=== PATIENT | male | born 1955 | race Caucasian/White ===

== ENCOUNTER 2017-03-02 13:09 | Inpatient (IN) | payer MEDICAID ==
[~2017-03-02] VITALS: Ht 175.3 cm; Wt 80.4 kg
[2017-03-02] VITALS (14 sets, daily range): BP systolic 79–107; BP diastolic 53–74; PULSE 77–93; RESP 16–26; TEMP 97.3–99.4; O2SAT 20–100
[~2017-03-02 13:09] MED LIST: LACT20SO4 PO; NORV5TAB PO; SODI1 PO; THIA100T PO
[2017-03-02] MEDS ORDERED: SODIUM CHLOR 0.9% 1000 ML INJ 1,000 ML IV SCH ×2 (13:42→18:00)
[2017-03-02] MEDS ORDERED: SODIUM CHLORIDE 0.9% FLUSH 10 ML FLUSH IVF PRN (13:45)
--- NOTE | 2017-03-02 13:59 | PD ---
HPI Chief Complaint: Fall Time Seen by Provider: 13:47 Travel History International Travel<30 days: No Contact w/Intl Traveler<30days: No Traveled to known affect area: No History of Present Illness HPI 61-year-old male brought in by his neighbor via POV from his apartment abdomen found laying face down in his apartment for unknown duration. Patient is urine incontinent, but does respond to verbal stimuli and direction. Patient appears intoxicated. Patient has swelling to the left side of his face, forehead, cheek, upper lip, and nose with superficial abrasion noted. Patient has minor abrasion to the left posterior elbow, and abrasions to the anterior chest with complaints of pain with palpation in this area. Patient does not recall how long he has been passed out. He states he's had one beer today. Patient is able to stand and transfer to the bed from wheelchair with nursing help. Further history is limited. Patient is allergic to peanuts. PFSH Past Medical History Medical History: Unable to Obtain Diminished Hearing: No ?: Not Social History Alcohol Use: Yes (20 beer day) Tobacco Use: No Substance Use: No Allergies-Medications (Allergen,Severity, Reaction): Coded Allergies: PEANUTS (Unverified Allergy, Severe, 03/02/17) Reported Meds & Prescriptions Reported Meds & Active Scripts Active Reported Xanax (Alprazolam) 2 Mg Tab 2 Mg PO DAILY PRN Omeprazole 20 Mg Tab 20 Mg PO DAILY IN THE PM Review of Systems ROS Limitations: Intoxication, Poor Historian Except as stated in HPI: all other systems reviewed are Neg General / Constitutional: No: Fever Eyes: No: Visual changes HENT: No: Headaches Cardiovascular: No: Chest Pain or Discomfort Respiratory: No: Shortness of Breath Gastrointestinal: No: Abdominal Pain Genitourinary: No: Dysuria Musculoskeletal: No: Pain Skin: No Rash Neurologic: No: Weakness Psychiatric: No: Depression Endocrine: No: Polydipsia Hematologic/Lymphatic: No: Easy Bruising Physical Exam Narrative GENERAL: Patient appears in moderate distress. SKIN: Warm and dry. Patient appears icteric, and has large superficial abrasion to the left side of his face, with swelling of the left upper and lower eyelid left upper lip, and left lateral nasal region. No lacerations noted. Patient is noted to have ecchymosis to both anterior shoulders, with small abrasion with ecchymosis to the left posterior elbow. Patient also has ecchymotic region across the left anterior lower thoracic region. HEAD: See skin. EYES: Pupils equal and round. No scleral icterus. No injection or drainage. ENT: No nasal bleeding or discharge. Mucous membranes pink and dry. Patient has false upper teeth, no obvious acute dental injury to the lower teeth. Airway is patent. Pharynx appears unremarkable. NECK: Trachea midline. No bony tenderness or step-off. CARDIOVASCULAR: Regular rate and rhythm. No murmurs gallops or rubs. RESPIRATORY: No accessory muscle use. Clear to auscultation. Breath sounds equal bilaterally. GASTROINTESTINAL: Abdomen soft, non-tender, nondistended. Hepatic and splenic margins not palpable. MUSCULOSKELETAL: Extremities without clubbing, cyanosis, or edema. No obvious deformities. Patient complains of left shoulder pain, without obvious signs of fracture or dislocation. Bruising is noted. Patient complains of bilateral elbow discomfort but this appears to be due to abrasion, without signs of fracture or dislocation. Patient generally has spasticity in all extremities. Patient is tender over the left anterior lateral thorax, without subcutaneous emphysema noted, or crepitus along the ribs. NEUROLOGICAL: Awake and alert. No obvious cranial nerve deficits. Motor grossly within normal limits. Five out of 5 muscle strength in the arms and legs. Normal speech. PSYCHIATRIC: Appropriate mood and affect; insight and judgment normal. Data Data Last Documented VS Vital Signs Date Time Temp Pulse Resp B/P Pulse Ox O2 Delivery O2 Flow Rate FiO2 03/02/17 15:40 86 20 107/73 97 Room Air 03/02/17 13:29 97.3 Orders Electrocardiogram (03/02/17 13:42) Ammonia (03/02/17 13:42) Complete Blood Count With Diff (03/02/17 13:42) Comprehensive Metabolic Panel (03/02/17 13:42) Creatine Kinase (Cpk) (03/02/17 13:42) Prothrombin Time / Inr (Pt) (03/02/17 13:42) Act Partial Throm Time (Ptt) (03/02/17 13:42) Troponin I (03/02/17 13:42) Lactic Acid Sepsis Protocol (03/02/17 13:42) Urinalysis - C+S If Indicated (03/02/17 13:42) Blood Culture (03/02/17 13:42) Blood Glucose (03/02/17 13:42) Ecg Monitoring (03/02/17 13:42) Iv Access Insert/Monitor (03/02/17 13:42) Cath For Specimen (03/02/17 13:42) Oximetry (03/02/17 13:42) Sodium Chloride 0.9% Flush (Ns Flush) (03/02/17 13:45) Sodium Chlor 0.9% 1000 Ml Inj (Ns 1000 M (03/02/17 13:42) Drug Screen, Random Urine (03/02/17 13:42) Alcohol (Ethanol) (03/02/17 13:42) Lipase (03/02/17 13:42) Ct Brain W/O Iv Contrast(Rout) (03/02/17 13:42) Ct Thorax/ Chest Wo Iv Contras (03/02/17 13:42) Ct Abd/Pel W/O Iv Contrast (03/02/17 13:42) Ct Cerv Spine W/O Contrast (03/02/17 13:42) Ct Facial Bones W/O Iv Cont (03/02/17 13:42) [id number]-[id number] (Booster) Inj (Boostrix (03/02/17 14:00) Sodium Chlor 0.9% 1000 Ml Inj (Ns 1000 M (03/02/17 14:00) Shoulder, Complete (>2vws) (03/02/17 14:04) CKMB (03/02/17 14:15) CKMB% (03/02/17 14:15) Admit Order (Ed Use Only) (03/02/17 16:17) Labs Laboratory Tests Test 03/02/17 03/02/17 03/02/17 14:15 14:30 16:10 White Blood Count 12.5 TH/MM3 Red Blood Count 4.28 MIL/MM3 Hemoglobin 14.5 GM/DL Hematocrit 40.6 % Mean Corpuscular Volume 94.7 FL Mean Corpuscular Hemoglobin 33.8 PG Mean Corpuscular Hemoglobin 35.7 % Concent Red Cell Distribution Width 13.1 % Platelet Count 112 TH/MM3 Mean Platelet Volume 7.7 FL Neutrophils (%) (Auto) 83.1 % Lymphocytes (%) (Auto) 11.2 % Monocytes (%) (Auto) 5.2 % Eosinophils (%) (Auto) 0.2 % Basophils (%) (Auto) 0.3 % Neutrophils # (Auto) 10.4 TH/MM3 Lymphocytes # (Auto) 1.4 TH/MM3 Monocytes # (Auto) 0.6 TH/MM3 Eosinophils # (Auto) 0.0 TH/MM3 Basophils # (Auto) 0.0 TH/MM3 CBC Comment DIFF FINAL Differential Comment Prothrombin Time 21.4 SEC Prothromb Time International 1.9 RATIO Ratio Activated Partial 37.5 SEC Thromboplast Time Sodium Level MEQ/L Potassium Level 3.8 MEQ/L Chloride Level 59 MEQ/L Carbon Dioxide Level 13.9 MEQ/L Anion Gap 26 MEQ/L Blood Urea Nitrogen 19 MG/DL Creatinine 1.54 MG/DL Estimat Glomerular Filtration 46 ML/MIN Rate Random Glucose 120 MG/DL Serum Osmolality 220 MOSM/KG Lactic Acid Level 9.8 mmol/L 4.6 mmol/L Calcium Level 8.1 MG/DL Total Bilirubin 8.9 MG/DL Aspartate Amino Transf 494 U/L (AST/SGOT) Alanine Aminotransferase 146 U/L (ALT/SGPT) Alkaline Phosphatase 144 U/L Ammonia 60 MCMOL/L Total Creatine Kinase 7117 U/L Creatine Kinase MB 52.2 NG/ML Creatine Kinase MB % 0.7 % Troponin I 4.92 NG/ML Total Protein 7.4 GM/DL Albumin 2.8 GM/DL Lipase 277 U/L Ethyl Alcohol Level LESS THAN 3 MG/DL Urine Color DARK-BROWN Urine Turbidity HAZY Urine pH 6.0 Urine Specific [place] 1.018 Urine Protein 30 mg/dL Urine Glucose (UA) 150 mg/dL Urine Ketones TRACE mg/dL Urine Occult Blood MOD Urine Nitrite NEG Urine Bilirubin MOD Urine Urobilinogen 2.0 MG/DL Urine Leukocyte Esterase NEG Urine RBC 1 /hpf Urine WBC 5 /hpf Urine Squamous Epithelial 1 /hpf Cells Urine Hyaline Casts 7 /lpf Urine Granular Casts 2 /lpf Urine Mucus FEW /lpf Microscopic Urinalysis Comment CATH-CULT NOT IND MDM Medical Decision Making Medical Screen Exam Complete: Yes Emergency Medical Condition: Yes Differential Diagnosis Altered mental status. Fall with facial contusion. Possible facial fracture. Possible intracranial bleed. Electrolyte abnormality. Dehydration. Renal failure. Cirrhosis. Dehydration. Sepsis. Narrative Course Patient is guardedly medically stable at time of exam. CT of the head, neck, thorax, and abdomen is ordered after discussion with Dr. Carrion. EKG shows sinus rhythm with question QT elongation. Labs ordered including CBC, CMP, lactic acid, ammonia, PT PTT and INR, troponin , blood cultures 2, serum alcohol level, urine drug screen and urinalysis. IV access is obtained. Patient is ordered 2 normal saline IV boluses. X-ray of the left shoulder is ordered as well. CBC shows mild leukocytosis of 12.3. 1500 hrs. sodium is reported to be 99, and a lactic acid is 9.8. Patient discussed with Dr. Carrion who called the marketing financial analyst. Dr. Carrion assumes care of the patient. Condition: Stable Reji Herrera Mar 02, 2017 13:59
[2017-03-02] MEDS ORDERED: SODIUM CHLOR 0.9% 1000 ML INJ 1,000 ML IV ONE ×4 (14:00→21:00)
[2017-03-02] MEDS ORDERED: DIPHTH/TETANUS/ACEL PERTUSSIS (BOOSTER) 0.5 ML VIAL/PFS IM ONE (14:00)
[2017-03-02 14:36] LABS: AUTOMATED NEUTROPHIL # 10.4 TH/MM3 (1.8-7.7); BASOPHIL % 0.3 % (0.0-2.0); EOSINOPHIL % 0.2 % (0.0-4.0); HEMATOCRIT 40.6 % (39.0-51.0); HEMO FLAGS DIFF FINAL; LYMPH % 11.2 % (9.0-44.0); LYMPHOCYTE # 1.4 TH/MM3 (1.0-4.8); MEAN CELL VOLUME 94.7 FL (80.0-100.0); MEAN CORPUSCULAR HEMOGLOBIN 33.8 PG (27.0-34.0); MEAN CORPUSCULAR HGB CONC 35.7 % (32.0-36.0); MONO % 5.2 % (0.0-8.0); NEUT % 83.1 % (16.0-70.0); PLATELET COUNT 112 TH/MM3 (150-450); RED BLOOD COUNT 4.28 MIL/MM3 (4.50-5.90); RED CELL DISTRIBUTION WIDTH 13.1 % (11.6-17.2); WHITE BLOOD COUNT 12.5 TH/MM3 (4.0-11.0)
[2017-03-02 14:45] LABS: INTERNATIONAL NORMALIZED RATIO 1.9 RATIO; PROTHROMBIN TIME - PATIENT 21.4 SEC (9.8-11.6)
[2017-03-02] MEDS ORDERED: XANA2TAB2 PO (14:47)
[2017-03-02] MEDS ORDERED: OMEP20TA PO (14:47)
[2017-03-02 14:58] LABS: APTT (PATIENT) 37.5 SEC (24.3-30.1)
[2017-03-02 14:59] LABS: BLOOD, URINE MOD (NEG); GLUCOSE,URINE 150 mg/dL (NEG); GRANULAR CAST, URINE 2 /lpf; HYALINE CAST, URINE 7 /lpf (RARE); KETONE, URINE TRACE mg/dL (NEG); MUCUS URINE FEW /lpf (OCC); NITRITE,URINE NEG (NEG); SQUAMOUS EPITHELIAL CELL URINE 1 /hpf (0-5)
[2017-03-02 15:00] LABS: URINE COLOR DARK-BROWN (YELLW/STRAW)
[2017-03-02 15:01] LABS: ALT (GPT) 146 U/L (12-78); AST (GOT) 494 U/L (15-37); BICARBONATE 13.9 MEQ/L (21.0-32.0); BLOOD UREA NITROGEN 19 MG/DL (7-18); CHLORIDE 59 MEQ/L (98-107); GLOMERULAR FILTRATION RATE 46 ML/MIN (>89)
[2017-03-02 15:02] LABS: COMMENT (UR) CATH-CULT NOT IND; CULTURE IF INDICATED CATH CULTURE NOT IND
[2017-03-02 15:05] LABS: POTASSIUM 3.8 MEQ/L (3.5-5.1)
[2017-03-02 15:26] LABS: ALKALINE PHOSPHATASE 144 U/L (45-117); CREATINE KINASE 7117 U/L (39-308); TOTAL BILIRUBIN ADULT 8.9 MG/DL (0.2-1.0)
[2017-03-02 15:29] LABS: ANION GAP 26 MEQ/L (5-15)
--- NOTE | 2017-03-02 15:31 | RADRPT ---
EXAM DATE/TIME: 03/02/2017 14:52 [facility] COMPARISON: CT BRAIN W/O CONTRAST, March 22, 2015, 23:05. INDICATIONS : Found unresponsive on floor of apartment today, left sided facial edema and abrasions to anterior [address] RADIATION DOSE: 53.90 CTDIvol (mGy) MEDICAL HISTORY : unobtainable SURGICAL HISTORY : brain surgery ENCOUNTER: Initial ACUITY: 1 day PAIN SCALE: 7/10 LOCATION: Bilateral head TECHNIQUE: Multiple contiguous axial images were obtained of the head. Using automated exposure control and adj ustment of the mA and/or kV according to patient size, radiation dose was kept as low as reasonably a chievable to obtain optimal diagnostic quality images. FINDINGS: CEREBRUM: The ventricles are normal for age and similar to prior exam on 03/22/15. No evidence of midline shift , mass lesion, hemorrhage or acute infarction. Incidental note of small cavum septum pellucidum. No extra-axial fluid collections are seen. POSTERIOR FOSSA: The cerebellum and brainstem are intact. The 4th ventricle is midline. The cerebellopontine angle i s unremarkable. EXTRACRANIAL: The visualized portion of the orbits is intact. SKULL: There is mild scalp swelling in the left frontal and parietal region extending from low to high conve xity. No radiopaque foreign bodies. The calvaria is intact. No evidence of skull fracture. CONCLUSION: 1. Prominent scalp swelling left frontal and parietal region. No skull fracture seen. 2. Intracranial contents are intact without acute finding. Cheo Martínez MD on March 02, 2017 at 15:27 Board Certified Radiologist. This report was verified electronically.
--- NOTE | 2017-03-02 15:52 | RADRPT ---
EXAM DATE/TIME: 03/02/2017 14:52 [facility] COMPARISON: CT CERVICAL SPINE W/O CONTRAST, March 22, 2015, 23:05. INDICATIONS : Found unresponsive on floor of apartment today, left sided facial edema and abrasions to anterior [address] RADIATION DOSE: 19.07 CTDIvol (mGy) MEDICAL HISTORY : unobtainable SURGICAL HISTORY : brain surgery ENCOUNTER: Initial ACUITY: 1 day PAIN SCALE: 4/10 LOCATION: Bilateral neck TECHNIQUE: Volumetric scanning of the cervical spine was performed. Multiplanar reconstructions in the sagittal, coronal and oblique axial planes were performed. Using automated exposure control and adjustment o f the mA and/or kV according to patient size, radiation dose was kept as low as reasonably achievable to obtain optimal diagnostic quality images. FINDINGS: There is straightening of the cervical lordosis. Vertebral body height is maintained. There is a mi ld depression of anterior-superior angle of the C6 vertebral body which is unchanged from a prior CT in March 2015. The facet joints are normal alignment. No evidence of locked or perched facets. Spi nous processes are intact.. C2-C3: No fracture seen. The neural foramina are patent bilaterally. C3-C4: No fracture seen. The neural foramina are patent bilaterally. C4-C5: No fracture seen. The neural foramina are patent bilaterally. C5-C6: No fracture seen. The neural foramina are patent bilaterally. C6-C7: No fractures seen. The neural foramina are patent bilaterally. C7-T1: No fracture seen. The neural foramina are patent bilaterally. CONCLUSION: Negative CT cervical spine. Cheo Martínez MD on March 02, 2017 at 15:46 Board Certified Radiologist. This report was verified electronically.
--- NOTE | 2017-03-02 15:54 | RADRPT ---
EXAM DATE/TIME: 03/02/2017 14:52 [facility] COMPARISON: No previous studies available for comparison. INDICATIONS : Found unresponsive on floor of apartment today, left sided facial edema and abrasions to anterior [address] RADIATION DOSE: 65.22 CTDIvol (mGy) MEDICAL HISTORY : unobtainable SURGICAL HISTORY : brain surgery ENCOUNTER: Initial ACUITY: 1 day PAIN SCORE: 6/10 LOCATION: Left face TECHNIQUE: Volumetric scanning of the facial bones was performed. Using automated exposure control and adjustme nt of the mA and/or kV according to patient size, radiation dose was kept as low as reasonably achiev able to obtain optimal diagnostic quality images. FINDINGS: Axial acquisition and coronal multiplanar reconstruction was performed. There is moderate scalp swel ling in the frontal polar region extending up to the left parietal region and left malar region. No radiopaque foreign body is seen. The facial bones are intact. No fracture seen in the mandible, max illa, zygomatic arch as, or nasal bone. The pterygoid plates are intact.. CONCLUSION: Negative CT of the facial bones. Cheo Martínez MD on March 02, 2017 at 15:50 Board Certified Radiologist. This report was verified electronically.
--- NOTE | 2017-03-02 15:56 | RADRPT ---
EXAM DATE/TIME: 03/02/2017 15:04 [facility] COMPARISON: No previous studies available for comparison. INDICATIONS : Found unresponsive on floor of apartment today, left sided facial edema and abrasions to anterior [address] ORAL CONTRAST: No oral contrast ingested. RADIATION DOSE: 11.98 CTDIvol (mGy) ; Combined studies MEDICAL HISTORY : unobtainable SURGICAL HISTORY : brain surgery ENCOUNTER: Initial ACUITY: 1 day PAIN SCALE: 6/10 LOCATION: Bilateral abdomen TECHNIQUE: Volumetric scanning of the abdomen and pelvis was performed. Using automated exposure control and ad justment of the mA and/or kV according to patient size, radiation dose was kept as low as reasonably achievable to obtain optimal diagnostic quality images. FINDINGS: There is a moderate size hiatus hernia measuring 6.2 cm in length. The liver, spleen, kidneys, pancr eas, and adrenal glands are unremarkable for noncontrast technique. Cholecystectomy. Probable exophy tic cyst from the midpole the right kidney measures 1.3 cm. No evidence of hydronephrosis. The abdo yunior aorta is normal in diameter. Loops of small and large bowel are normal in diameter. A few sca ttered sigmoid diverticula are present. No radiographic evidence of diverticulitis. Urinary bladder margins are smooth. Some calcification in the central zone of the prostate gland. No evidence of r etroperitoneal or deep pelvic adenopathy. CONCLUSION: Moderate size hiatus hernia. Scattered small sigmoid diverticula. Otherwise negative exam. Cheo Martínez MD on March 02, 2017 at 15:52 Board Certified Radiologist. This report was verified electronically.
--- NOTE | 2017-03-02 16:00 | RADRPT ---
EXAM DATE/TIME: 03/02/2017 15:04 [facility] COMPARISON: CHEST SINGLE AP, March 23, 2015, 2:47. CHEST SINGLE AP, March 22, 2015, 22:12. SHOULDER LEFT COMPLE TE (>2VWS), March 02, 2017, 15:18. INDICATIONS : Found unresponsive on floor of apartment today, left sided facial edema and abrasions to anterior [address] RADIATION DOSE: 11.98 CTDIvol (mGy) ; Reconstructed from previous dataset MEDICAL HISTORY : unobtainable SURGICAL HISTORY : brain surgery ENCOUNTER: Initial ACUITY: 1 day PAIN SCALE: 3/10 LOCATION: Bilateral chest TECHNIQUE: Volumetric scanning of the chest was performed. Using automated exposure control and adjustment of t he mA and/or kV according to patient size, radiation dose was kept as low as reasonably achievable to obtain optimal diagnostic quality images. FINDINGS: LUNGS: There is no consolidation or pneumothorax. No concerning pulmonary nodule is visualized. PLEURAE: There is no pleural thickening or pleural effusion. MEDIASTINUM: The heart and great vessels demonstrate no acute abnormality. There is no mediastinal or hilar lymph adenopathy. AXILLAE: Within normal limits. No lymphadenopathy. MUSCULOSKELETAL: There is an asymmetric appearance to the lateral left clavicle with enlargement of the lateral metaph ysis. There also several small fracture lucency is seen about the coracoid process suggesting acute on chronic bony injury. No rib fractures seen. The scapula appears intact bilaterally. MISCELLANEOUS: Moderate size hiatus hernia. CONCLUSION: 1. Abnormal appearance of the lateral left clavicle suggesting a combination of acute and chronic bon y injury. Fracture lucencies without bridging callus is seen the region of the coracoid process. 2. The lungs are clear. No evidence of pneumothorax. 3. Moderate size hiatus hernia. Cheo Martínez MD on March 02, 2017 at 15:55 Board Certified Radiologist. This report was verified electronically.
[2017-03-02 16:02] LABS: CKMB 52.2 NG/ML (0.5-3.6)
--- NOTE | 2017-03-02 16:03 | PD ---
Data Data Last Documented VS Vital Signs Date Time Temp Pulse Resp B/P Pulse Ox O2 Delivery O2 Flow Rate FiO2 03/02/17 13:49 96 Room Air 03/02/17 13:40 81 22 101/60 03/02/17 13:29 97.3 Orders Electrocardiogram (03/02/17 13:42) Ammonia (03/02/17 13:42) Complete Blood Count With Diff (03/02/17 13:42) Comprehensive Metabolic Panel (03/02/17 13:42) Creatine Kinase (Cpk) (03/02/17 13:42) Prothrombin Time / Inr (Pt) (03/02/17 13:42) Act Partial Throm Time (Ptt) (03/02/17 13:42) Troponin I (03/02/17 13:42) Lactic Acid Sepsis Protocol (03/02/17 13:42) Urinalysis - C+S If Indicated (03/02/17 13:42) Blood Culture (03/02/17 13:42) Blood Glucose (03/02/17 13:42) Ecg Monitoring (03/02/17 13:42) Iv Access Insert/Monitor (03/02/17 13:42) Cath For Specimen (03/02/17 13:42) Oximetry (03/02/17 13:42) Sodium Chloride 0.9% Flush (Ns Flush) (03/02/17 13:45) Sodium Chlor 0.9% 1000 Ml Inj (Ns 1000 M (03/02/17 13:42) Drug Screen, Random Urine (03/02/17 13:42) Alcohol (Ethanol) (03/02/17 13:42) Lipase (03/02/17 13:42) Ct Brain W/O Iv Contrast(Rout) (03/02/17 13:42) Ct Thorax/ Chest Wo Iv Contras (03/02/17 13:42) Ct Abd/Pel W/O Iv Contrast (03/02/17 13:42) Ct Cerv Spine W/O Contrast (03/02/17 13:42) Ct Facial Bones W/O Iv Cont (03/02/17 13:42) Wzxy-Lro-Gysirq (Booster) Inj (Boostrix (03/02/17 14:00) Sodium Chlor 0.9% 1000 Ml Inj (Ns 1000 M (03/02/17 14:00) Shoulder, Complete (>2vws) (03/02/17 14:04) CKMB (03/02/17 14:15) CKMB% (03/02/17 14:15) Admit Order (Ed Use Only) (03/02/17 16:17) Labs Laboratory Tests Test 03/02/17 03/02/17 14:15 14:30 White Blood Count 12.5 TH/MM3 Red Blood Count 4.28 MIL/MM3 Hemoglobin 14.5 GM/DL Hematocrit 40.6 % Mean Corpuscular Volume 94.7 FL Mean Corpuscular Hemoglobin 33.8 PG Mean Corpuscular Hemoglobin 35.7 % Concent Red Cell Distribution Width 13.1 % Platelet Count 112 TH/MM3 Mean Platelet Volume 7.7 FL Neutrophils (%) (Auto) 83.1 % Lymphocytes (%) (Auto) 11.2 % Monocytes (%) (Auto) 5.2 % Eosinophils (%) (Auto) 0.2 % Basophils (%) (Auto) 0.3 % Neutrophils # (Auto) 10.4 TH/MM3 Lymphocytes # (Auto) 1.4 TH/MM3 Monocytes # (Auto) 0.6 TH/MM3 Eosinophils # (Auto) 0.0 TH/MM3 Basophils # (Auto) 0.0 TH/MM3 CBC Comment DIFF FINAL Differential Comment Prothrombin Time 21.4 SEC Prothromb Time International 1.9 RATIO Ratio Activated Partial 37.5 SEC Thromboplast Time Sodium Level MEQ/L Potassium Level 3.8 MEQ/L Chloride Level 59 MEQ/L Carbon Dioxide Level 13.9 MEQ/L Anion Gap 26 MEQ/L Blood Urea Nitrogen 19 MG/DL Creatinine 1.54 MG/DL Estimat Glomerular Filtration 46 ML/MIN Rate Random Glucose 120 MG/DL Lactic Acid Level 9.8 mmol/L Calcium Level 8.1 MG/DL Total Bilirubin 8.9 MG/DL Aspartate Amino Transf 494 U/L (AST/SGOT) Alanine Aminotransferase 146 U/L (ALT/SGPT) Alkaline Phosphatase 144 U/L Ammonia 60 MCMOL/L Total Creatine Kinase 7117 U/L Creatine Kinase MB 52.2 NG/ML Creatine Kinase MB % 0.7 % Troponin I 4.92 NG/ML Total Protein 7.4 GM/DL Albumin 2.8 GM/DL Lipase 277 U/L Ethyl Alcohol Level LESS THAN 3 MG/DL Urine Color DARK-BROWN Urine Turbidity HAZY Urine pH 6.0 Urine Specific [place] 1.018 Urine Protein 30 mg/dL Urine Glucose (UA) 150 mg/dL Urine Ketones TRACE mg/dL Urine Occult Blood MOD Urine Nitrite NEG Urine Bilirubin MOD Urine Urobilinogen 2.0 MG/DL Urine Leukocyte Esterase NEG Urine RBC 1 /hpf Urine WBC 5 /hpf Urine Squamous Epithelial 1 /hpf Cells Urine Hyaline Casts 7 /lpf Urine Granular Casts 2 /lpf Urine Mucus FEW /lpf Microscopic Urinalysis Comment CATH-CULT NOT IND MDM Supervised Visit with PARK: Yes Narrative Course I, Dr. Carrion, have reviewed the advance practice practitioner's documentation and am in agreement, met with the patient face to face, made the diagnosis, and the medical decision making was done by me. See his note for further details. Briefly this is a 61-year-old male who was brought in by EMS from home after being found lying face down and unresponsive. The patient is not sure how long he has been on the ground. He was incontinent of urine. He has facial abrasions and is complaining of a slight headache. He admits to drinking one alcoholic beverage the day before. He denies illicit drug use. On physical exam the patient is somewhat delirious, however he is oriented to person and place. There are no focal neurologic deficits. Vital signs show heart rate 93 , blood pressure 101/60, pulse ox 97% on room air, oral temp of 97.3F. CBC shows WBC 12.5, hemoglobin 14.5, hematocrit 40.6, platelets 112. CMP is remarkable for sodium 99, chloride 59, bicarbonate 13.9, anion gap 26, BUN 19, creatinine 1.5, GFR 46, AST 494, ALT 146, T bili 8.9, Lipase is 277. Lactic acid is 9.8. Ammonia level is 60. Total CK is 7117. Troponin is 4.92. Machine reading on EKG read as acute SC, however on my interpretation there is no clear STEMI, and no reciprocal changes. This was discussed with on-call cardiology/STEMI physician Dr. Sal who states that the patient's hyponatremia could cause minor EKG changes, and the patient is not a candidate for cardiac At this time. He recommends medical management at this time. CT head: Prominent scalp swelling left frontal and parietal region. No skull fracture. Intracranial contents are intact without acute findings. CT cervical spine: Negative CT cervical spine. CT facial bones: Negative CT of the facial bones. CT abdomen pelvis: CONCLUSION: Moderate size hiatus hernia. Scattered small sigmoid diverticula. Otherwise negative exam. CT thorax: CONCLUSION: 1. Abnormal appearance of the lateral left clavicle suggesting a combination of acute and chronic bony injury. Fracture lucencies without bridging callus is seen the region of the coracoid process. 2. The lungs are clear. No evidence of pneumothorax. 3. Moderate size hiatus hernia. Chart review shows that the patient had similar presentation about 2 years ago where he was found altered and had a sodium of 99. This occurred after a 3 week binge of beer drinking, and was thought to be likely secondary to beer potomania. Case discussed with supervisor bleach plant Dr. Bryant who will admit the patient to his service. At this time the patient had received 1 L of normal saline IV. Although correcting hyponatremia rapidly could live result in central pontine myelinolysis, the patient is severely dehydrated with a lactate of 9.8 and requires volume resuscitation. The patient's oral temp is 97.3F. There is no clearcut source for infection. Lactic acidosis is likely secondary to dehydration and not infection, therefore antibiotics were not given. Critical Care Narrative Aggregate critical care time was 35 minutes. Time to perform other separately billable procedures was not included in the critical care time. My time did not include minutes spent treating any other patients simultaneously or on activities that did not directly contribute to the patient's treatment. The services I provided to this patient were to treat and/or prevent clinically significant deterioration that could result in: , permanent disability, worsening clinical condition I provided critical care services requiring my management, as noted below: Chart data review, documentation time, medication orders and management, vital sign assessments/reviewing monitor data, ordering and reviewing lab tests, ordering and interpreting/reviewing x-rays and diagnostic studies, care of the patient and discussion of the patient with the admitting physicians. Procedures Procedure Narrative Ultrasound-guided peripheral IV: Because of difficult IV access, I was asked by my nurse to place an ultrasound- guided peripheral IV. Using linear ultrasound probe, a 20-gauge long IV catheter was placed in the patient's left antecubital fossa. Site was prepped with ChloraPrep prior to insertion. Tolerated well. No complications. Diagnosis Primary Impression: Hyponatremia Additional Impressions: Lactic acidosis Elevated troponin Altered mental status Qualified Code: R41.82 - Altered mental status, unspecified altered mental status type Admitting Information Admitting Physician Requests: Admit Condition: Stable Sanchez Carrion MD Mar 02, 2017 16:03
[2017-03-02 16:26] LABS: LACTIC ACID GHOST NOT REPORTABLE
--- NOTE | 2017-03-02 16:28 | RADRPT ---
EXAM DATE/TIME: 03/02/2017 15:18 [facility] COMPARISON: No previous studies available for comparison. INDICATIONS : Left shoulder pain, possible fall, found unresponsive on floor today with abrasions. MEDICAL HISTORY : Unobtainable. SURGICAL HISTORY : Brain surgery. ENCOUNTER: Initial ACUITY: 1 day PAIN SCORE: 7/10 LOCATION: Left shoulder. FINDINGS: 4 view examination of the left shoulder was performed. There is an abnormal appearance to the distal left clavicle characterize by increase in the left and there is also evidence of heterotopic ossific ation bridging between the distal clavicle and coracoid process. Heterotopic ossification is also pr esent about the a.c. joint. The findings suggest old trauma. A CT scan performed today also demonst rated a few lucencies about the coracoid process without bridging callus. The visualized left upper ribs are intact. The proximal humerus and glenohumeral joint is grossly intact. CONCLUSION: No evidence of recent bony injury. Deformity of the lateral left clavicle suggests old healed trauma . Cheo Martínez MD on March 02, 2017 at 16:25 Board Certified Radiologist. This report was verified electronically.
[2017-03-02] MEDS ORDERED: CHLORHEXIDINE GLUCONATE 2 % 1 PACK (2 CLOTHS) TOP PRN (16:30)
[2017-03-02] MEDS ORDERED: MAGNESIUM SULFATE INJ 4 GM in SODIUM CHLORIDE 0.9% INJ 92 ML IV PRN (16:30)
[2017-03-02] MEDS ORDERED: POTASSIUM CHLOR 20 MEQ PREMIX 100 ML IV PRN ×2 (16:30)
[2017-03-02] MEDS ORDERED: POTASSIUM PHOSPHATE MONOBASIC 500 MG TAB PO PRN (16:30)
[2017-03-02] MEDS ORDERED: SODIUM PHOSPHATE INJ 30 MMOL in SODIUM CHLOR 0.9% 250 ML INJ 240 ML IV PRN (16:30)
[2017-03-02] MEDS ORDERED: MAGNESIUM OXIDE 400 MG TAB PO PRN (16:30)
[2017-03-02] MEDS ORDERED: POTASSIUM PHOSPHATE INJ 30 MMOL in SODIUM CHLOR 0.9% 250 ML INJ 250 ML IV PRN (16:30)
[2017-03-02] MEDS ORDERED: MAGNESIUM SULFATE INJ 2 GM in SODIUM CHLORIDE 0.9% INJ 96 ML IV PRN (16:30)
[2017-03-02] MEDS ORDERED: RESP: ALBUTEROL 2.5 MG/IPRATROPIUM 0.5 MG NEB (PRN) INH (16:30)
[2017-03-02] MEDS ORDERED: MISCELLANEOUS NURSING INFORMATION XX SCH (16:30)
[2017-03-02] MEDS ORDERED: SODIUM CHLORIDE 0.9% FLUSH 10 ML FLUSH IV FLUSH PRN (16:30)
[2017-03-02] MEDS ORDERED: ONDANSETRON HCL 4 MG/2 ML VIAL IV PRN (16:30)
[2017-03-02] MEDS ORDERED: DEXTROSE 50% IN WATER 50 ML VIAL(D50) IV PUSH PRN (16:30)
[2017-03-02] MEDS ORDERED: LIDOCAINE 1%/EPINEPHrine 1:100,000 SOLN 20 ML VIAL ONE (16:50)
[2017-03-02] MEDS ORDERED: MULTIVITAMIN INJ 10 ML, THIAMINE INJ 100 MG, FOLIC ACID INJ 1 MG in SODIUM CHLOR 0.45% ... IV ONE (17:00)
--- NOTE | 2017-03-02 17:31 | HHI.HP ---
[facility] Service Critical Care Medicine Primary Care Physician No Primary Care Physician Admission Diagnosis hyponatremia, elevated troponin, AMS, hyperbilirubinemia Diagnosis: Chief Complaint: altered mental status Travel History International Travel<30 Days: No Contact w/Intl Traveler <30 Da: No Traveled to Known Affected Are: No History of Present Illness This is a 61-year-old male with a past history of alcohol abuse and a prior admission in 2014 for severe life-threatening hyponatremia at that time with a serum sodium of 98. He presents today with what he states is a 13 day history of worsening fatigue and weakness. He is very altered and is very difficult to understand the patient. What I can understand from him, is that at some point during these 13 days he has fallen and hit his face. Otherwise he states he lays on the couch, and has not gotten not much. He states he drinks 1 beer in the morning, and 1 beer in the afternoon. He does endorse taking some Xanax to help him sleep. He denies other drug use. He denies chest pain, shortness of breath, fever, chills, nausea, vomiting, abdominal pain. It is very difficult to get him to answer anymore questions about his medical history. His speech is very slurred and he is trying to talk about how he misses his daughter. Emergency department he was found to have a serum sodium of 99, a bilirubin of 8.9, lactate of 9.8, ammonia of 60, CK of 7000, elevated troponin of 4.9 with a normal MB ratio, creatinine 1.5, serum bicarbonate of 13. His white count is 12 , platelets 112. INR 1.9. His MELD calculates at 26. Review of Systems ROS Limitations: Clinical Condition, Altered Mental Status, Poor Historian Past Family Social History Allergies: Coded Allergies: PEANUTS (Unverified Allergy, Severe, 03/02/17) Past Medical History unable to be obtained secondary to altered mental status. Past Surgical History unable to be obtained secondary to altered mental status. Reported Medications unable to be obtained secondary to altered mental status. He did endorse taking xanax daily to sleep. unknown dose. Active Ordered Medications See MAR Family History unable to be obtained secondary to altered mental status. Social History unable to be obtained secondary to altered mental status. Does endorse drinking 1 beer in the morning and 1 in the afternoon Physical Exam Vital Signs Vital Signs Date Time Temp Pulse Resp B/P Pulse Ox O2 Delivery O2 Flow Rate FiO2 03/02/17 14:40 80 21 104/74 99 Room Air 03/02/17 13:49 96 Room Air 03/02/17 13:47 96 Room Air 03/02/17 13:40 81 22 101/60 97 Room Air 03/02/17 13:29 97.3 93 26 92 Room Air 03/02/17 13:19 97.3 93 24 92 Physical Exam GENERAL: middle-aged male, lying in bed HEENT: Obese abrasions over his forehead, left ear, left cheek, left elbow. perrl. mucous membranes dry. NECK: no jvd. trachea midline. CHEST: equal chest rise. clear to auscultation CARDIOVASCULAR: normal rate, regular rhythm. no appreciable murmurs ABDOMEN: soft, nontender, nondistended. no guarding. MUSCULOSKELETAL: distal pulses 2+. no peripheral edema. NEUROLOGICAL: RASS -2. No focal deficits. Patient is very inattentive. Slurred speech. Laboratory Laboratory Tests Test 03/02/17 03/02/17 03/02/17 14:15 14:30 16:10 White Blood Count 12.5 Red Blood Count 4.28 Hemoglobin 14.5 Hematocrit 40.6 Mean Corpuscular Volume 94.7 Mean Corpuscular Hemoglobin 33.8 Mean Corpuscular Hemoglobin 35.7 Concent Red Cell Distribution Width 13.1 Platelet Count 112 Mean Platelet Volume 7.7 Neutrophils (%) (Auto) 83.1 Lymphocytes (%) (Auto) 11.2 Monocytes (%) (Auto) 5.2 Eosinophils (%) (Auto) 0.2 Basophils (%) (Auto) 0.3 Neutrophils # (Auto) 10.4 Lymphocytes # (Auto) 1.4 Monocytes # (Auto) 0.6 Eosinophils # (Auto) 0.0 Basophils # (Auto) 0.0 CBC Comment DIFF FINAL Differential Comment Prothrombin Time 21.4 Prothromb Time International 1.9 Ratio Activated Partial 37.5 Thromboplast Time Sodium Level Potassium Level 3.8 Chloride Level 59 Carbon Dioxide Level 13.9 Anion Gap 26 Blood Urea Nitrogen 19 Creatinine 1.54 Estimat Glomerular Filtration 46 Rate Random Glucose 120 Lactic Acid Level 9.8 4.6 Calcium Level 8.1 Total Bilirubin 8.9 Aspartate Amino Transf 494 (AST/SGOT) Alanine Aminotransferase 146 (ALT/SGPT) Alkaline Phosphatase 144 Ammonia 60 Total Creatine Kinase 7117 Creatine Kinase MB 52.2 Creatine Kinase MB % 0.7 Troponin I 4.92 Total Protein 7.4 Albumin 2.8 Lipase 277 Ethyl Alcohol Level LESS THAN 3 Urine Color DARK-BROWN Urine Turbidity HAZY Urine pH 6.0 Urine Specific [place] 1.018 Urine Protein 30 Urine Glucose (UA) 150 Urine Ketones TRACE Urine Occult Blood MOD Urine Nitrite NEG Urine Bilirubin MOD Urine Urobilinogen 2.0 Urine Leukocyte Esterase NEG Urine RBC 1 Urine WBC 5 Urine Squamous Epithelial 1 Cells Urine Hyaline Casts 7 Urine Granular Casts 2 Urine Mucus FEW Microscopic Urinalysis Comment CATH-CULT NOT IND Date/Time Procedure Status Source Growth 03/02/17 14:13 Aerobic Blood Culture Received Blood Peripheral Pending 03/02/17 14:13 Anaerobic Blood Culture Received Blood Peripheral Pending Result Diagram: 03/02/17 1415 03/02/17 1415 Imaging Last Impressions Shoulder X-Ray 03/02/17 1404 Signed Impressions: Service Date/Time: Thursday, March 02, 2017 15:18 - CONCLUSION: No evidence of recent bony injury. Deformity of the lateral left clavicle suggests old healed trauma. Cheo Martínez MD Maxillofacial CT 03/02/17 134 Signed Impressions: Service Date/Time: Thursday, March 02, 2017 14:52 - CONCLUSION: Negative CT of the facial bones. Cheo Martínez MD Head CT 03/02/171341 Signed Impressions: Service Date/Time: Thursday, March 02, 2017 14:52 - CONCLUSION: 1. Prominent scalp swelling left frontal and parietal region. No skull fracture seen. 2. Intracranial contents are intact without acute finding. Cheo Martínez MD Chest CT 03/02/17 134 Signed Impressions: Service Date/Time: Thursday, March 02, 2017 15:04 - CONCLUSION: 1. Abnormal appearance of the lateral left clavicle suggesting a combination of acute and chronic bony injury. Fracture lucencies without bridging callus is seen the region of the coracoid process. 2. The lungs are clear. No evidence of pneumothorax. 3. Moderate size hiatus hernia. Cheo Martínez MD Cervical Spine CT 03/02/17 134 Signed Impressions: Service Date/Time: Thursday, March 02, 2017 14:52 - CONCLUSION: Negative CT cervical spine. Cheo Martínez MD Abdomen/Pelvis CT 03/02/17 1342 Signed Impressions: Service Date/Time: Thursday, March 02, 2017 15:04 - CONCLUSION: Moderate size hiatus hernia. Scattered small sigmoid diverticula. Otherwise negative exam. Cheo Martínez MD Assessment and Plan Assessment and Plan Assessment: This is a 61yM with severe life-threatening hyponatremia, dehydration, rhabdomyolysis, acute kidney injury, metabolic encephalopathy, end- stage liver disease with MELD 26. He is very critically ill at this time. We must ivf resuscitate him to salvage his end-organ damage. Undoubtedly we may over-correct his serum sodium when we give him volume expansion to support his end-organs, but we must take this risk because his acute rhabdo, kidney injury are lifethreatening without immediate treatement. he is also hypotensive secondary to dehydration. Plan by systems: Neurologic: Metabolic Encephalopathy Alcoholism -- likely multifactorial, including possible Wernicke's, hyponatremia, hyperammonemia, hepatic encephalopathy -- iv thiamine, mvi -- watch for withdraws -- hold long-acting sedating meds. Respiratory: -- I.S. to bedside -- bedrest tonight while altered. -- wean o2 by NC for spo2 > 92% Cardiovascular: Hypotension secondary to dehydration -- 3L ivf resuscitation. -- art line placed. -- elevated troponin likely from rhabdomyolysis. no symptoms of acute coronary syndrome. MB Ratio normal. Renal: Acute Kidney Injury Rhabdomyolysis -- trend CKs -- place hodgson -- Strict I/Os FEN/GI: Life-threatening Hyponatremia End-stage liver disease Hyperammonemia Acute protein calorie malnutrition- severe Severe Dehydration -- NS @ 125cc/hr -- serial sodiums -- may require 3% NaCl, but recheck Na to see how fast we are correcting the sodium. -- certainly he is at risk of CPM, but we must volume resuscitate him with isotonic fluid to prevent further end-organ damage. -- holding lactulose for hyperammonemia in the setting of severe dehydration -- watch closely for refeeding syndrome -- daily bmp, lft, coags. Heme/ID: Coagulopathy secondary to end-stage liver disease From cytopenia secondary to end-stage liver disease Anemia secondary to end-stage liver disease and poor nutrition No infectious etiology suspected this time Leukocytosis likely reactive Lactate secondary to severe dehydration Daily coags, CBC Does not meet transfusion triggers at this time Endocrine: Hyperglycemia of critical illness -- SSI, medium scale, every 4 hours Prophylaxis: GI Prophylaxis Protonix IV DVT Prophylaxis -- SCDs Subcutaneous heparin. Patient's liver disease are often hypercoagulable even though they have evidence of coagulopathy. Lines: will place CVL for possible need for 3% nacl -- will place arterial line as patient is hypotensive and will require frequent blood sampling. Dispo: Admit to the ICU. He remains very critically ill. This patient remains critically ill with one or more organ systems which are or may become a threat to life. I have spent in excess of 81 minutes discontinuously in the care and management of this patient. This time is exclusive of procedures, and includes, but is not limited to, evaluation of the patient, review of the medical record, discussions with family, consultants, nursing staff, or respiratory therapy, and documentation in the medical record. Tu Bryant MD Mar 02, 2017 17:31
[2017-03-02] MEDS ORDERED: LIDOCAINE 1%/EPINEPHrine 1:100,000 SOLN 20 ML VIAL INFIL ONE (17:45)
[2017-03-02 17:51] LABS: BLOOD GAS BASE EXCESS -5.6 mmol/L (-2-2); BLOOD GAS CARBOXYHEMOGLOBIN 0.9 % (0-4); BLOOD GAS HCO3 17 mmol/L (22-26); BLOOD GAS METHEMOGLOBIN 0.2 % (0-2); BLOOD GAS O2 HGB SATURATION 98 % (90-100); BLOOD GAS OXYGEN CONTENT 16.6 Vol % (12.0-20.0); BLOOD GAS PCO2 19 mmHg (38-42); BLOOD GAS PO2 116 mmHG (61-120); BLOOD GAS TOTAL HGB 11.9 G/DL (12.0-16.0); CRITICAL VALUE YES; TEMP CORR TO 98.6
[2017-03-02 17:52] LABS: DRAW SITE ART LINE; FIO2 21 %; OXYGEN DEVICE RA; STAT YES
[2017-03-02] MEDS: HEPARIN SODIUM - SQ 10,000 UNITS/ML VIAL SQ SCH (18:00)
--- NOTE | 2017-03-02 18:06 | PD.PROCEDR ---
Procedure Note Procedure Procedure: Arterial Line Placement Left radial arterial line Diagnosis: Life-threatening hyponatremia Indications: Need for serial arterial blood gas sampling Consent: Consent is deemed emergent or medically necessary Description of the Procedure: The left wrist was prepped and draped sterilely. 1% lidocaine was used for local anesthesia. The pulse was located and a needle was advanced into the artery. A 20 gauge, 12 cm catheter was advanced into the artery using a modified Seldinger technique. The catheter was sutured to the skin and a sterile dressing was applied. The catheter was connected to a pressure transducer and an arterial waveform was noted. There were no immediate complications noted. There was minimal EBL. I personally performed the procedure. Tu Bryant MD Mar 02, 2017 18:06
--- NOTE | 2017-03-02 18:07 | PD.PROCEDR ---
Procedure Note Procedure Central Line Procedure Note Left subclavian 7 Tu[place] triple lumen catheter Diagnosis: Life-threatening hyponatremia Indications: Need for 3% sodium chloride infusion Consent: Consent is deemed emergent or medically necessary Anesthesia: 1% lidocaine locally Description of the Procedure: The patient was placed in the supine, mild- Trendelenburg position. The area was prepped and draped sterilely. A 19g needle was inserted under negative pressure aspiration and dark venous blood was obtained. A guidewire was inserted easily without resistance. A small incision was made using a #11 blade. Using a modified Seldinger technique, the dilator and 7 Tu[place], 20 cm catheter were advanced over the guidewire without resistance. All ports were aspirated and flushed, and had brisk blood return. The line was secured at 18 cm at the skin using 2-0 silk interrupted sutures. A Biopatch and Transparent sterile dressing were applied. There were no immediate complications noted. There was minimal EBL. The patient tolerated the procedure well. Ultrasound guidance was not used for this procedure A Chest x-ray has been ordered. I personally performed the procedure. Tu Bryant MD Mar 02, 2017 18:07
--- NOTE | 2017-03-02 18:29 | RADRPT ---
EXAM DATE/TIME: 03/02/2017 17:21 [facility] COMPARISON: CHEST SINGLE AP, March 23, 2015, 2:47. INDICATIONS : Central line placement. MEDICAL HISTORY : Unobtainable. SURGICAL HISTORY : Brain surgery. ENCOUNTER: Initial ACUITY: 1 day PAIN SCORE: Non-responsive. LOCATION: chest FINDINGS: A single view of the chest demonstrates the lungs to be symmetrically aerated without evidence of mas s, infiltrate or effusion. The cardiomediastinal contours are unremarkable. Osseous structures are intact. Left subclavian catheter in place with the tip projected over the mid superior vena cava. N o evidence of pneumothorax. CONCLUSION: Central line in good position. No evidence of pneumothorax. Cheo Martínez MD on March 02, 2017 at 18:27 Board Certified Radiologist. This report was verified electronically.
[2017-03-02] MEDS: INSULIN NovoLIN REGULAR SUPPLEMENTAL SCALE SQ SCH ×2 (20:00→23:22)
[2017-03-02] MEDS: DOCUSATE SODIUM 100 MG/10 ML UDC G-TUBE SCH (20:27)
[2017-03-02] MEDS: SODIUM CHLORIDE 0.9% FLUSH 10 ML FLUSH IV FLUSH SCH (20:27)
[2017-03-02 20:34] LABS: AMPHETAMINE, URINE NEG (NEG); BARBITURATES, URINE NEG (NEG); COCAINE, URINE NEG (NEG)
[2017-03-02] MEDS ORDERED: TERBUTALINE INJ 1 MG/ML AMP SQ PRN (21:00)
[2017-03-02 21:06] LABS: MEAN CORPUSCULAR HGB CONC 36.7 % (32.0-36.0)
[2017-03-02] MEDS: NOREPINEPHRINE-DEXTROSE DRIP 250 ML IV SCH (22:35)
[2017-03-02] MEDS: DEXT 5%-NACL 0.45% 1000 ML INJ 1,000 ML IV SCH (23:22)
[2017-03-03] VITALS (14 sets, daily range): BP systolic 88–100; BP diastolic 54–65; PULSE 76–96; RESP 19–20; TEMP 98.2–99.7; O2SAT 98–99
--- NOTE | 2017-03-03 00:01 | EKG ---
Date Performed: 03/02/2017 Time Performed: 13:52:53 PTAGE: 61 years EKG: Sinus rhythm LOW QRS VOLTAGE IN PRECORDIAL LEADS NONSPECIFIC ST & T-WAVE ABNORMALITY PROLONGED QT INTERVAL ABNORM AL ECG PREVIOUS TRACING : 03/02/2017 13.51 DOCTOR: Fabien Kiser Interpretating Date/Time 03/04/2017 07:13:31
[2017-03-03 01:50] LABS: CKMB 28.1 NG/ML (0.5-3.6)
[2017-03-03] MEDS: NOREPINEPHRINE-DEXTROSE DRIP 250 ML IV SCH ×6 (02:44→23:42)
[2017-03-03] MEDS: THIAMINE INJ 100 MG in SODIUM CHLORIDE 0.9% INJ 100 ML IV SCH (03:05)
[2017-03-03] MEDS: CHLORHEXIDINE GLUCONATE 2 % 1 PACK (2 CLOTHS) TOP SCH (03:05)
[2017-03-03] MEDS: INSULIN NovoLIN REGULAR SUPPLEMENTAL SCALE SQ SCH ×6 (03:05→23:41)
[2017-03-03 04:34] LABS: HEMATOCRIT 36.1 % (39.0-51.0); MEAN CELL VOLUME 91.9 FL (80.0-100.0); MEAN CORPUSCULAR HEMOGLOBIN 33.8 PG (27.0-34.0); PLATELET COUNT 89 TH/MM3 (150-450); RED BLOOD COUNT 3.92 MIL/MM3 (4.50-5.90); RED CELL DISTRIBUTION WIDTH 13.3 % (11.6-17.2); WHITE BLOOD COUNT 10.5 TH/MM3 (4.0-11.0)
[2017-03-03 04:37] LABS: REVIEW FLAG FINAL
[2017-03-03 05:27] LABS: APTT (PATIENT) 33.9 SEC (24.3-30.1); INTERNATIONAL NORMALIZED RATIO 1.4 RATIO; PROTHROMBIN TIME - PATIENT 16.1 SEC (9.8-11.6)
[2017-03-03] MEDS: DEXT 5%-NACL 0.45% 1000 ML INJ 1,000 ML IV SCH (06:39)
[2017-03-03] MEDS: HEPARIN SODIUM - SQ 10,000 UNITS/ML VIAL SQ SCH ×2 (06:39→18:22)
[2017-03-03 08:04] LABS: BICARBONATE 23.1 MEQ/L (21.0-32.0); INDIRECT BILIRUBIN 3.8 MG/DL (0.0-0.8); TOTAL BILIRUBIN ADULT 10.9 MG/DL (0.2-1.0)
[2017-03-03 08:05] LABS: POTASSIUM 1.6 MEQ/L (3.5-5.1)
[2017-03-03] MEDS ORDERED: POTASSIUM CHLOR 40 MEQ PREMIX 100 ML IV ONE (08:15)
[2017-03-03] MEDS ORDERED: MAGNESIUM SULFATE 4 GM PREMIX 100 ML IV ONE (08:15)
[2017-03-03] MEDS: DOCUSATE SODIUM 100 MG/10 ML UDC G-TUBE SCH ×2 (08:21→20:03)
[2017-03-03] MEDS: PANTOPRAZOLE SODIUM 40 MG VIAL IV SCH (08:21)
[2017-03-03] MEDS: MULTIVITAMIN TAB PO SCH (08:22)
[2017-03-03] MEDS: SODIUM CHLORIDE 0.9% FLUSH 10 ML FLUSH IV FLUSH SCH ×2 (08:22→20:03)
[2017-03-03 08:26] LABS: CKMB 17.4 NG/ML (0.5-3.6)
[2017-03-03 08:34] LABS: CALCIUM-PROTEIN CORRECTED 7.8 MG/DL (8.5-10.1)
[2017-03-03] MEDS ORDERED: MAGNESIUM SULFATE 4 GM/NS 100 ML IV ONE ×2 (09:00)
[2017-03-03] MEDS: LACTULOSE SYRUP 20 GM/30 ML CUP PO SCH ×4 (09:01→20:03)
--- NOTE | 2017-03-03 09:06 | HHI.CCPN ---
Subjective Remarks/Hospital Course Hospital Course: This is a 61-year-old male with a past history of alcohol abuse and a prior admission in 2015 for severe life-threatening hyponatremia at that time with a serum sodium of 98. He presents today with what he states is a 13 day history of worsening fatigue and weakness. He is very altered and is very difficult to understand the patient. What I can understand from him, is that at some point during these 13 days he has fallen and hit his face. Otherwise he states he lays on the couch, and has not gotten not much. He states he drinks 1 beer in the morning, and 1 beer in the afternoon. He does endorse taking some Xanax to help him sleep. He denies other drug use. He denies chest pain, shortness of breath, fever, chills, nausea, vomiting, abdominal pain. It is very difficult to get him to answer anymore questions about his medical history. His speech is very slurred and he is trying to talk about how he misses his daughter. Emergency department he was found to have a serum sodium of 99, a bilirubin of 8.9, lactate of 9.8, ammonia of 60, CK of 7000, elevated troponin of 4.9 with a normal MB ratio, creatinine 1.5, serum bicarbonate of 13. His white count is 12 , platelets 112. INR 1.9. His MELD calculates at 26. Subjective: 03/03: Sodium level rapidly corrected overnight, likely secondary to appropriate correction of severe life-threatening dehydration. NS fluids changed to 1/2NS and correction slowed down significantly. sodium up to 130 this AM. CK downtrending. however, patient remains severely hypotensive requiring levophed to maintain a map > 65 mmHg. This AM, serum K 1.6 (confirmed). started replacement with 200meq KCl and recheck K. Objective Vital Signs Date Time Temp Pulse Resp B/P Pulse Ox O2 Delivery O2 Flow Rate FiO2 03/03/17 06:00 96 03/03/17 04:00 99.7 19 100/56 98 03/02/17 17:30 Room Air Intake and Output 03/02/17 03/02/17 03/03/17 08:00 16:00 00:00 Intake Total 500 ml Output Total 1950 ml Balance -1450 ml Result Diagram: 03/03/17 0430 03/03/17 0650 Other Results Laboratory Tests Test 03/02/17 17:42 Blood Gas Puncture Site ART LINE Blood Gas Patient Temperature 98.6 Blood Gas HCO3 17 mmol/L (22-26) Blood Gas Base Excess -5.6 mmol/L (-2-2) Blood Gas Oxygen Saturation 98 % (90-100) Arterial Blood pH 7.56 (7.380-7.420) Arterial Blood Partial 19 mmHg (38-42) Pressure CO2 Arterial Blood Partial 116 mmHG Pressure O2 (61-120) Arterial Blood Oxygen Content 16.6 Vol % (12.0-20.0) Arterial Blood 0.9 % (0-4) Carboxyhemoglobin Arterial Blood Methemoglobin 0.2 % (0-2) Blood Gas Hemoglobin 11.9 G/DL (12.0-16.0) Oxygen Delivery Device RA Blood Gas Inspired Oxygen 21 % Imaging Last Impressions Shoulder X-Ray 03/02/17 1404 Signed Impressions: Service Date/Time: Thursday, March 02, 2017 15:18 - CONCLUSION: No evidence of recent bony injury. Deformity of the lateral left clavicle suggests old healed trauma. Cheo Martínez MD Maxillofacial CT 03/02/17 134 Signed Impressions: Service Date/Time: Thursday, March 02, 2017 14:52 - CONCLUSION: Negative CT of the facial bones. Cheo Martínez MD Head CT 03/02/17 134 Signed Impressions: Service Date/Time: Thursday, March 02, 2017 14:52 - CONCLUSION: 1. Prominent scalp swelling left frontal and parietal region. No skull fracture seen. 2. Intracranial contents are intact without acute finding. Cheo Martínez MD Chest CT 03/02/17 134 Signed Impressions: Service Date/Time: Thursday, March 02, 2017 15:04 - CONCLUSION: 1. Abnormal appearance of the lateral left clavicle suggesting a combination of acute and chronic bony injury. Fracture lucencies without bridging callus is seen the region of the coracoid process. 2. The lungs are clear. No evidence of pneumothorax. 3. Moderate size hiatus hernia. Cheo Martínez MD Cervical Spine CT 03/02/17 1342 Signed Impressions: Service Date/Time: Thursday, March 02, 2017 14:52 - CONCLUSION: Negative CT cervical spine. Cheo Martínez MD Abdomen/Pelvis CT 03/02/17 5484 Signed Impressions: Service Date/Time: Thursday, March 02, 2017 15:04 - CONCLUSION: Moderate size hiatus hernia. Scattered small sigmoid diverticula. Otherwise negative exam. Cheo Martínez MD Objective Remarks GENERAL: middle-aged male, lying in bed, still confused. HEENT: Obese abrasions over his forehead, left ear, left cheek, left elbow. perrl. mucous membranes dry. NECK: no jvd. trachea midline. CHEST: equal chest rise. clear to auscultation CARDIOVASCULAR: normal rate, regular rhythm. no appreciable murmurs ABDOMEN: soft, nontender, nondistended. no guarding. MUSCULOSKELETAL: distal pulses 2+. no peripheral edema. NEUROLOGICAL: RASS -1. No focal deficits. Patient is very inattentive. Slurred speech. A/P Assessment and Plan Assessment: This is a 61yM with severe life-threatening hyponatremia, dehydration, rhabdomyolysis, acute kidney injury, metabolic encephalopathy, end- stage liver disease with MELD today of 19 from 26 yesterday. He remains very critically ill with multiple severe metabolic derangements that continue to be life-threatening. In addition, He is in distributive shock likely a combination of dehydration, end-stage liver disease. Continue to very carefully correct serum sodium, now with 1/2NS. trend frequent sodiums. Plan by systems: Neurologic: Metabolic Encephalopathy Alcoholism Hepatic Encephalopathy -- likely multifactorial, including possible Wernicke's, hyponatremia, hyperammonemia, hepatic encephalopathy -- iv thiamine, mvi -- watch for withdraws -- hold long-acting sedating meds. -- start lactulose Respiratory: -- I.S. to bedside -- continue bedrest while significant metabolic derangements. -- wean o2 by NC for spo2 > 92% Cardiovascular: Hypotension secondary to dehydration -- continue Levophed for goal map > 65 mmHg. -- elevated troponin likely from rhabdomyolysis. no symptoms of acute coronary syndrome. MB Ratio normal. Renal: Acute Kidney Injury- improved. Rhabdomyolysis -- trend CKs, downtrending. -- continue hodgson -- Strict I/Os FEN/GI: Life-threatening Hyponatremia End-stage liver disease Hyperammonemia Acute protein calorie malnutrition- severe Severe Dehydration -- 1/2NS @ 125cc/hr -- serial sodiums -- certainly he is at risk of CPM, but we must continue appropriate volume resuscitation to improve end-organ perfusion. -- watch closely for refeeding syndrome -- daily bmp, lft, coags, mg, phos -- nutrition consult. high concern for refeeding syndrome. Heme/ID: Coagulopathy secondary to end-stage liver disease From cytopenia secondary to end-stage liver disease Anemia secondary to end-stage liver disease and poor nutrition No infectious etiology suspected this time Leukocytosis likely reactive Lactate secondary to severe dehydration, resolving. Daily coags, CBC Does not meet transfusion triggers at this time Endocrine: Hyperglycemia of critical illness -- SSI, medium scale, every 4 hours Prophylaxis: GI Prophylaxis Protonix IV DVT Prophylaxis -- SCDs Subcutaneous heparin. Patient's liver disease are often hypercoagulable even though they have evidence of coagulopathy. Lines: 4/1 L SC TLC --4/1 L radial art line --Hodgson Dispo: Remain in the ICU. He remains critically ill. This patient remains critically ill with one or more organ systems which are or may become a threat to life. I have spent in excess of 57 minutes discontinuously in the care and management of this patient. This time is exclusive of procedures, and includes, but is not limited to, evaluation of the patient, review of the medical record, discussions with family, consultants, nursing staff, or respiratory therapy, and documentation in the medical record. Tu Bryant MD Mar 03, 2017 09:06
[2017-03-03 09:33] LABS: CREATINE KINASE 2942 U/L (39-308); SODIUM (NA) 129 MEQ/L (136-145)
[2017-03-03] MEDS: POTASSIUM CHLOR 40 MEQ PREMIX 100 ML IV SCH ×4 (10:15→16:01)
[2017-03-03] MEDS: SODIUM CHLOR 0.9% 1000 ML INJ 1,000 ML IV SCH (16:01)
[2017-03-03 19:41] LABS: CKMB 6.9 NG/ML (0.5-3.6)
[2017-03-03 21:01] LABS: MAGNESIUM 2.3 MG/DL (1.5-2.5)
[2017-03-03 21:01] LABS: MEAN CORPUSCULAR HGB CONC 36.1 % (32.0-36.0)
[2017-03-03 22:11] LABS: POTASSIUM 2.5 MEQ/L (3.5-5.1)
[2017-03-03] MEDS ORDERED: SODIUM CHLOR 0.9% IV SCH (22:45)
[2017-03-03] MEDS ORDERED: POTASSIUM PHOSPHATE IV SCH (22:45)
[2017-03-04] VITALS (14 sets, daily range): BP systolic 94–119; BP diastolic 65–82; PULSE 80–110; RESP 16–25; TEMP 99.1–99.6; O2SAT 98–100
[2017-03-04] MEDS: SODIUM CHLOR 0.9% 1000 ML INJ 1,000 ML IV SCH ×2 (00:03→17:20)
[2017-03-04] MEDS: THIAMINE INJ 100 MG in SODIUM CHLORIDE 0.9% INJ 100 ML IV SCH (02:12)
[2017-03-04] MEDS: NOREPINEPHRINE-DEXTROSE DRIP 250 ML IV SCH ×4 (02:13→12:59)
[2017-03-04] MEDS: INSULIN NovoLIN REGULAR SUPPLEMENTAL SCALE SQ SCH ×5 (03:57→20:37)
[2017-03-04] MEDS: CHLORHEXIDINE GLUCONATE 2 % 1 PACK (2 CLOTHS) TOP SCH (03:58)
[2017-03-04 05:06] LABS: INDIRECT BILIRUBIN 2.9 MG/DL (0.0-0.8)
[2017-03-04 05:07] LABS: TOTAL BILIRUBIN ADULT 9.5 MG/DL (0.2-1.0)
[2017-03-04] MEDS: HEPARIN SODIUM - SQ 10,000 UNITS/ML VIAL SQ SCH ×2 (05:30→17:19)
[2017-03-04 06:26] LABS: HEMATOCRIT 34.3 % (39.0-51.0); MEAN CELL VOLUME 92.7 FL (80.0-100.0); MEAN CORPUSCULAR HEMOGLOBIN 33.4 PG (27.0-34.0); PLATELET COUNT 87 TH/MM3 (150-450); RED CELL DISTRIBUTION WIDTH 13.2 % (11.6-17.2); WHITE BLOOD COUNT 9.9 TH/MM3 (4.0-11.0)
[2017-03-04 06:39] LABS: REVIEW FLAG FINAL
[2017-03-04 07:24] LABS: APTT (PATIENT) 29.4 SEC (24.3-30.1); INTERNATIONAL NORMALIZED RATIO 1.2 RATIO; PROTHROMBIN TIME - PATIENT 13.9 SEC (9.8-11.6)
[2017-03-04] MEDS ORDERED: ALBUMIN HUMAN 5% 25 GM/500 ML BOTTLE IV ONE (08:00)
--- NOTE | 2017-03-04 08:20 | HHI.CCPN ---
Subjective Remarks/Hospital Course Hospital Course: This is a 61-year-old male with a past history of alcohol abuse and a prior admission in 2015 for severe life-threatening hyponatremia at that time with a serum sodium of 98. He presents today with what he states is a 13 day history of worsening fatigue and weakness. He is very altered and is very difficult to understand the patient. What I can understand from him, is that at some point during these 13 days he has fallen and hit his face. Otherwise he states he lays on the couch, and has not gotten not much. He states he drinks 1 beer in the morning, and 1 beer in the afternoon. He does endorse taking some Xanax to help him sleep. He denies other drug use. He denies chest pain, shortness of breath, fever, chills, nausea, vomiting, abdominal pain. It is very difficult to get him to answer anymore questions about his medical history. His speech is very slurred and he is trying to talk about how he misses his daughter. Emergency department he was found to have a serum sodium of 99, a bilirubin of 8.9, lactate of 9.8, ammonia of 60, CK of 7000, elevated troponin of 4.9 with a normal MB ratio, creatinine 1.5, serum bicarbonate of 13. His white count is 12 , platelets 112. INR 1.9. His MELD calculates at 26. Subjective: 03/03: Sodium level rapidly corrected overnight, likely secondary to appropriate correction of severe life-threatening dehydration. NS fluids changed to 1/2NS and correction slowed down significantly. sodium up to 130 this AM. CK downtrending. however, patient remains severely hypotensive requiring levophed to maintain a map > 65 mmHg. This AM, serum K 1.6 (confirmed). started replacement with 200meq KCl and recheck K. 03/04: persists in vasoplegic distributive shock. afebrile. no evidence of infection. wbc downtrending. persists with severe life-threatening electrolyte derangements. passed swallow eval for nectar thick liquids. sodium stable at 131. ck downtrending. Objective Vital Signs Date Time Temp Pulse Resp B/P Pulse Ox O2 Delivery O2 Flow Rate FiO2 03/04/17 06:00 80 03/04/17 04:00 99.6 17 102/65 99 03/02/17 17:30 Room Air Intake and Output 03/03/17 03/03/17 03/04/17 08:00 16:00 00:00 Intake Total 3235 ml 1675 ml 1790 ml Output Total 4000 ml 2100 ml 1150 ml Balance -765 ml -425 ml 640 ml Result Diagram: 03/04/17 0600 03/04/17 0345 Imaging Last Impressions Shoulder X-Ray 03/02/17 1404 Signed Impressions: Service Date/Time: Thursday, March 02, 2017 15:18 - CONCLUSION: No evidence of recent bony injury. Deformity of the lateral left clavicle suggests old healed trauma. Cheo Martínez MD Maxillofacial CT 03/02/17 1342 Signed Impressions: Service Date/Time: Thursday, March 02, 2017 14:52 - CONCLUSION: Negative CT of the facial bones. Cheo Martínez MD Head CT 03/02/17 1342 Signed Impressions: Service Date/Time: Thursday, March 02, 2017 14:52 - CONCLUSION: 1. Prominent scalp swelling left frontal and parietal region. No skull fracture seen. 2. Intracranial contents are intact without acute finding. Cheo Martínez MD Chest CT 03/02/17 1342 Signed Impressions: Service Date/Time: Thursday, March 02, 2017 15:04 - CONCLUSION: 1. Abnormal appearance of the lateral left clavicle suggesting a combination of acute and chronic bony injury. Fracture lucencies without bridging callus is seen the region of the coracoid process. 2. The lungs are clear. No evidence of pneumothorax. 3. Moderate size hiatus hernia. Cheo Martínez MD Cervical Spine CT 03/02/17 1342 Signed Impressions: Service Date/Time: Thursday, March 02, 2017 14:52 - CONCLUSION: Negative CT cervical spine. Cheo Martínez MD Abdomen/Pelvis CT 03/02/17 1342 Signed Impressions: Service Date/Time: Thursday, March 02, 2017 15:04 - CONCLUSION: Moderate size hiatus hernia. Scattered small sigmoid diverticula. Otherwise negative exam. Cheo Martínez MD Objective Remarks GENERAL: middle-aged male, lying in bed, still confused. HEENT: Obese abrasions over his forehead, left ear, left cheek, left elbow. perrl. mucous membranes dry. NECK: no jvd. trachea midline. CHEST: equal chest rise. clear to auscultation CARDIOVASCULAR: normal rate, regular rhythm. no appreciable murmurs ABDOMEN: soft, nontender, nondistended. no guarding. MUSCULOSKELETAL: distal pulses 2+. no peripheral edema. NEUROLOGICAL: RASS -1. No focal deficits. Patient is very inattentive. Slurred speech. A/P Assessment and Plan Assessment: This is a 61yM with severe life-threatening hyponatremia, hypokalemia, hypophosphatemia, dehydration, rhabdomyolysis, acute kidney injury , metabolic encephalopathy, end-stage liver disease with MELD continues to downtrend. He remains very critically ill with multiple severe metabolic derangements that continue to be life-threatening. In addition, He is in distributive shock likely a combination of dehydration, end-stage liver disease. Continue to very carefully correct serum sodium, now with NS. trend frequent sodiums. Plan by systems: Neurologic: Metabolic Encephalopathy Alcoholism Hepatic Encephalopathy -- likely multifactorial, including possible Wernicke's, hyponatremia, hyperammonemia, hepatic encephalopathy -- iv thiamine, mvi -- watch for withdraws -- hold long-acting sedating meds. -- continue lactulose Respiratory: -- I.S. to bedside -- OOB today with PT. -- wean o2 by NC for spo2 > 92% Cardiovascular: Hypotension secondary to dehydration, vasoplegia -- continue Levophed for goal map > 65 mmHg. -- elevated troponin likely from rhabdomyolysis. no symptoms of acute coronary syndrome. MB Ratio normal. -- will obtain 2d echo today to rule out cardiac cause for ongoing hypotension and shock. Renal: Acute Kidney Injury- improved. Rhabdomyolysis -- trend CKs, downtrending. -- continue hodgson -- Strict I/Os FEN/GI: Life-threatening Hyponatremia End-stage liver disease Hyperammonemia Acute protein calorie malnutrition- severe Severe Dehydration -- NS @ 75cc/hr. -- will start low-dose salt tabs 1gm TID for gentle added sodium -- serial sodiums -- certainly he is at risk of CPM, but we must continue appropriate volume resuscitation to improve end-organ perfusion. -- watch closely for refeeding syndrome -- daily bmp, lft, coags, mg, phos -- nutrition consult. high concern for refeeding syndrome. -- aggressive K, Phos, Mg replacements. Heme/ID: Coagulopathy secondary to end-stage liver disease From cytopenia secondary to end-stage liver disease Anemia secondary to end-stage liver disease and poor nutrition No infectious etiology suspected this time Leukocytosis likely reactive and downtrending. Daily coags, CBC Does not meet transfusion triggers at this time Endocrine: Hyperglycemia of critical illness -- SSI, medium scale, every 4 hours Prophylaxis: GI Prophylaxis Protonix IV DVT Prophylaxis -- SCDs Subcutaneous heparin. Patient's liver disease are often hypercoagulable even though they have evidence of coagulopathy. Lines: 4/1 L SC TLC --4/1 L radial art line --Hodgson Dispo: Remain in the ICU. He remains critically ill. This patient remains critically ill with one or more organ systems which are or may become a threat to life. I have spent in excess of 31 minutes discontinuously in the care and management of this patient. This time is exclusive of procedures, and includes, but is not limited to, evaluation of the patient, review of the medical record, discussions with family, consultants, nursing staff, or respiratory therapy, and documentation in the medical record. Tu Bryant MD Mar 04, 2017 08:20
[2017-03-04] MEDS: SODIUM CHLORIDE 0.9% FLUSH 10 ML FLUSH IV FLUSH SCH ×2 (09:00→20:38)
[2017-03-04] MEDS ORDERED: POTASSIUM PHOSPHATE INJ 30 MMOL in SODIUM CHLOR 0.9% 250 ML INJ 250 ML IV ONE (09:00)
[2017-03-04] MEDS: LACTULOSE SYRUP 20 GM/30 ML CUP PO SCH ×4 (09:28→20:37)
[2017-03-04] MEDS: MULTIVITAMIN TAB PO SCH (09:28)
[2017-03-04] MEDS: PANTOPRAZOLE SODIUM 40 MG VIAL IV SCH (09:28)
[2017-03-04] MEDS: DOCUSATE SODIUM 100 MG/10 ML UDC G-TUBE SCH ×2 (09:28→20:37)
[2017-03-04 10:30] LABS: POTASSIUM 2.2 MEQ/L (3.5-5.1)
[2017-03-04] MEDS ORDERED: POTASSIUM CHLORIDE 20 MEQ CONTROLLED RELEASE TAB PO ONE (11:00)
[2017-03-04] MEDS: POTASSIUM CHLOR 40 MEQ PREMIX 100 ML IV SCH ×2 (11:02→12:59)
[2017-03-04] MEDS: POTASSIUM PHOSPHATE MONOBASIC 500 MG TAB PO/TUBE PRN (11:03)
[2017-03-04] MEDS: SODIUM CHLORIDE 1 GRAM TAB PO SCH ×3 (11:04→17:17)
[2017-03-04] MEDS: WATE IV SCH ×4 (15:13→21:50)
[2017-03-04] MEDS: NOREPINEPHRINE IV SCH ×4 (15:13→21:50)
[2017-03-04] MEDS: DEXTROSE 5% IV SCH ×4 (15:13→21:50)
[2017-03-04] MEDS: LORazepam 2 MG/ML VIAL IV PUSH PRN (16:43)
--- NOTE | 2017-03-04 16:48 | EC ---
Study Study Date:03/04/2017 STUDY CONCLUSIONS SUMMARY - Left ventricle: The cavity size was normal. Wall thickness was normal. Systolic function was moderately reduced. The estimated ejection fraction was in the range of 35% to 40%. Wall motion was normal; there were no regional wall motion abnormalities. - Aortic valve: Mild regurgitation. - Left atrium: The atrium was mildly dilated. - Pulmonary arteries: PA peak pressure: 33mm Hg (S). If LV function is below 40, please consider prescribing an ACEI or ARB or document rationale for non-use. PROCEDURE DATA STUDY STATUS: Elective. Procedure: Transthoracic echocardiography. Image quality was good. Scanning was performed from the parasternal, apical, and subcostal acoustic windows. Study completion: The patient tolerated the procedure well. Transthoracic echocardiography. M-mode, complete 2D, complete spectral Doppler, and color Doppler. Height: Height: 69in. Weight: Weight: 143.7lb. Body mass index: BMI: 21.3kg/m^2. Body surface area: BSA: 1.8m^2. Patient status: Inpatient. CARDIAC ANATOMY LEFT VENTRICLE: The cavity size was normal. Wall thickness was normal. Systolic function was moderately reduced. The estimated ejection fraction was in the range of 35% to 40%. Wall motion was normal; there were no regional wall motion abnormalities. AORTIC VALVE: Trileaflet; normal thickness leaflets. Doppler: Transvalvular velocity was within the normal range. There was no stenosis. Mild regurgitation. AORTA: Aortic root: The aortic root was normal in size. MITRAL VALVE: Structurally normal valve. Doppler: Transvalvular velocity was within the normal range. There was no evidence for stenosis. No regurgitation. Valve area by pressure half-time: 2.75cm^2. Indexed valve area by pressure half-time: 1.53cm^2/m^2. Peak gradient: 2mm Hg (D). LEFT ATRIUM: The atrium was mildly dilated. RIGHT VENTRICLE: The cavity size was normal. Wall thickness was normal. PULMONIC VALVE: Doppler: Transvalvular velocity was within the normal range. There was no evidence for stenosis. No regurgitation. TRICUSPID VALVE: Structurally normal valve. Doppler: Transvalvular velocity was within the normal range. Trace regurgitation. Peak gradient: 17mm Hg (D). PULMONARY ARTERY: The main pulmonary artery was normal-sized. Systolic pressure was within the normal range. RIGHT ATRIUM: The atrium was normal in size. PERICARDIUM: There was no pericardial effusion. SYSTEMIC VEINS: Inferior vena cava: The vessel was normal in size. Patient weight: 143.7lb _Ejection fraction:_ 65-75% _Fractional shortening:_ 32% up to 5Kg 5-11.5Kg 11.6-22.9Kg 23-45Kg 45-57Kg Aortic Root 7-13 <17 13-22 17-27 17-27 LA diam 6-13 <23 24-38 33-47 37-40 RVID 10-17 7-15 7-15 7-18 8-17 LVIDd 12-22 <32 24-38 33-47 37-40 LVPW 2-4 3-6 5-7 6-8 7-8 IVS 2-4 3-6 5-7 6-8 7-8 BASIC MEASUREMENTS ADULT NORMAL Left ventricle LV internal dimension, ED, chordal *53.5 mm 43-52 level, PLAX LV internal dimension, ES, chordal *44.6 mm 23-38 level, PLAX Fractional shortening, chordal level, *17 % >29 PLAX LV posterior wall thickness, ED 10.2 mm IVS/LVPW ratio, ED 1.03 <1.3 Ventricular septum Septal thickness, ED 10.5 mm Aortic valve Leaflet separation 19 mm 15-26 Left atrium Anterior-posterior dimension 40 mm Anterior-posterior dimension index *2.22 cm/m^2 <2.2 Right ventricle RV internal dimension, ED, PLAX 20.3 mm 19-38 BASIC MEASUREMENTS ADULT NORMAL Aortic valve Leaflet separation 19 mm 15-26 Aorta Root diameter, ED 33 mm 20-37 DOPPLER MEASUREMENTS ADULT NORMAL Main pulmonary artery Pressure, S *33 mm Hg =30 Aortic valve Peak velocity, S 132 cm/s Regurgitant velocity, ED 441 cm/s Regurgitant deceleration 4120 cm/s^2 Regurgitant pressure half-time 314 ms Regurgitant gradient, ED 78 mm Hg Mitral valve Peak E-wave velocity 76 cm/s Peak A-wave velocity 43.4 cm/s Pressure half-time 80 ms Peak gradient, D 2 mm Hg Peak E/A ratio 1.8 Valve area, pressure half-time 2.75 cm^2 Valve area index, pressure half-time 1.53 cm^2/m^2 Tricuspid valve Peak gradient, D 17 mm Hg Maximal inflow velocity 205 cm/s Regurgitant peak velocity 255 cm/s Peak RV-RA gradient, S 26 mm Hg Systemic veins Estimated CVP 10 mm Hg Right ventricle RV pressure, S *36 mm Hg <30 Pulmonic valve Peak velocity, S 88.2 cm/s LEGEND: Mean values are shown as u=mean value. Asterisk (*) ibrahim values outside specified normal range. Prepared and signed by José Miguel Fernandez [id number]
[2017-03-04] MEDS: HYDROCORTISONE SOD SUCCINATE 100 MG VIAL IV PUSH SCH (17:18)
[2017-03-04] MEDS: chlordiazePOXIDE 25 MG CAP PO SCH (17:18)
[2017-03-04 17:30] LABS: POTASSIUM 4.5 MEQ/L (3.5-5.1)
[2017-03-04] MEDS: MILRINONE INJ 20 MG in SODIUM CHLORIDE 0.9% INJ 80 ML IV SCH (19:00)
[2017-03-04 21:01] LABS: MEAN CORPUSCULAR HGB CONC 36.3 % (32.0-36.0)
[2017-03-04 21:03] LABS: POTASSIUM 3.4 MEQ/L (3.5-5.1)
[2017-03-04] MEDS: POTASSIUM CHLOR 40 MEQ PREMIX 100 ML IV PRN (21:49)
[2017-03-05] VITALS (13 sets, daily range): BP systolic 85–120; BP diastolic 59–73; PULSE 78–97; RESP 15–24; TEMP 97.7–98.9; O2SAT 95–99
[2017-03-05] MEDS: chlordiazePOXIDE 25 MG CAP PO SCH ×4 (00:26→16:54)
[2017-03-05] MEDS: HYDROCORTISONE SOD SUCCINATE 100 MG VIAL IV PUSH SCH ×4 (00:26→16:54)
[2017-03-05] MEDS: INSULIN NovoLIN REGULAR SUPPLEMENTAL SCALE SQ SCH ×6 (04:00→20:00)
[2017-03-05] MEDS: CHLORHEXIDINE GLUCONATE 2 % 1 PACK (2 CLOTHS) TOP SCH (04:00)
[2017-03-05] MEDS: DEXTROSE 5% IV SCH ×2 (04:56)
[2017-03-05] MEDS: MILRINONE INJ 20 MG in SODIUM CHLORIDE 0.9% INJ 80 ML IV SCH ×2 (04:56→14:46)
[2017-03-05] MEDS: NOREPINEPHRINE IV SCH ×2 (04:56)
[2017-03-05] MEDS: WATE IV SCH ×2 (04:56)
[2017-03-05] MEDS: HEPARIN SODIUM - SQ 10,000 UNITS/ML VIAL SQ SCH ×2 (04:57→16:55)
[2017-03-05 05:00] LABS: MEAN CELL VOLUME 93.5 FL (80.0-100.0); PLATELET COUNT 52 TH/MM3 (150-450); RED BLOOD COUNT 2.99 MIL/MM3 (4.50-5.90); RED CELL DISTRIBUTION WIDTH 13.6 % (11.6-17.2)
[2017-03-05 05:09] LABS: APTT (PATIENT) 37.3 SEC (24.3-30.1); INTERNATIONAL NORMALIZED RATIO 1.3 RATIO; PROTHROMBIN TIME - PATIENT 14.2 SEC (9.8-11.6)
[2017-03-05 05:17] LABS: REVIEW FLAG FINAL
[2017-03-05 05:26] LABS: INDIRECT BILIRUBIN 2.2 MG/DL (0.0-0.8); MAGNESIUM 1.4 MG/DL (1.5-2.5); POTASSIUM 3.2 MEQ/L (3.5-5.1)
[2017-03-05 05:29] LABS: TOTAL BILIRUBIN ADULT 7.3 MG/DL (0.2-1.0)
[2017-03-05 05:32] LABS: CALCIUM-PROTEIN CORRECTED 7.6 MG/DL (8.5-10.1)
[2017-03-05] MEDS: POTASSIUM CHLOR 40 MEQ PREMIX 100 ML IV PRN ×2 (05:57→08:51)
[2017-03-05] MEDS: SODIUM CHLOR 0.9% 1000 ML INJ 1,000 ML IV SCH ×2 (06:29→14:49)
--- NOTE | 2017-03-05 07:17 | HHI.CCPN ---
Subjective Remarks/Hospital Course Hospital Course: This is a 61-year-old male with a past history of alcohol abuse and a prior admission in 2015 for severe life-threatening hyponatremia at that time with a serum sodium of 98. He presents today with what he states is a 13 day history of worsening fatigue and weakness. He is very altered and is very difficult to understand the patient. What I can understand from him, is that at some point during these 13 days he has fallen and hit his face. Otherwise he states he lays on the couch, and has not gotten not much. He states he drinks 1 beer in the morning, and 1 beer in the afternoon. He does endorse taking some Xanax to help him sleep. He denies other drug use. He denies chest pain, shortness of breath, fever, chills, nausea, vomiting, abdominal pain. It is very difficult to get him to answer anymore questions about his medical history. His speech is very slurred and he is trying to talk about how he misses his daughter. Emergency department he was found to have a serum sodium of 99, a bilirubin of 8.9, lactate of 9.8, ammonia of 60, CK of 7000, elevated troponin of 4.9 with a normal MB ratio, creatinine 1.5, serum bicarbonate of 13. His white count is 12 , platelets 112. INR 1.9. His MELD calculates at 26. Subjective: 4: Sodium level rapidly corrected overnight, likely secondary to appropriate correction of severe life-threatening dehydration. NS fluids changed to 1/2NS and correction slowed down significantly. sodium up to 130 this AM. CK downtrending. however, patient remains severely hypotensive requiring levophed to maintain a map > 65 mmHg. This AM, serum K 1.6 (confirmed). started replacement with 200meq KCl and recheck K. 03/04: persists in vasoplegic distributive shock. afebrile. no evidence of infection. wbc downtrending. persists with severe life-threatening electrolyte derangements. passed swallow eval for nectar thick liquids. sodium stable at 131. ck downtrending. 03/05: persists in distributive shock. echo yesterday with EF 30%, globally decreased function. milrinone added yesterday with improvement in vasporessor requirement. still with multiple electrolyte abnormalities despite very aggressive replacement. very poor appetite. sodium stable at 131, which appears to be around baseline for him, looking back at prior records. also became agitated and delirious yesterday, likely secondary to etoh withdraw. started on ativan and librium. Objective Vital Signs Date Time Temp Pulse Resp B/P Pulse Ox O2 Delivery O2 Flow Rate FiO2 03/05/17 06:00 79 03/05/17 04:00 98.9 24 120/73 99 100/66 03/04/17 19:12 21 03/02/17 17:30 Room Air Intake and Output 03/04/17 03/04/17 03/05/17 08:00 16:00 00:00 Intake Total 1540 ml 1374 ml 1819 ml Output Total 800 ml 750 ml 2000 ml Balance 740 ml 624 ml -181 ml Result Diagram: 03/05/17 0435 03/05/17 0435 Imaging Last Impressions Shoulder X-Ray 03/02/17 1404 Signed Impressions: Service Date/Time: Thursday, March 02, 2017 15:18 - CONCLUSION: No evidence of recent bony injury. Deformity of the lateral left clavicle suggests old healed trauma. Cheo Martínez MD Maxillofacial CT 03/02/17 1342 Signed Impressions: Service Date/Time: Thursday, March 02, 2017 14:52 - CONCLUSION: Negative CT of the facial bones. Cheo Martínez MD Head CT 03/02/17 134 Signed Impressions: Service Date/Time: Thursday, March 02, 2017 14:52 - CONCLUSION: 1. Prominent scalp swelling left frontal and parietal region. No skull fracture seen. 2. Intracranial contents are intact without acute finding. Cheo Martínez MD Chest CT 03/02/17 134 Signed Impressions: Service Date/Time: Thursday, March 02, 2017 15:04 - CONCLUSION: 1. Abnormal appearance of the lateral left clavicle suggesting a combination of acute and chronic bony injury. Fracture lucencies without bridging callus is seen the region of the coracoid process. 2. The lungs are clear. No evidence of pneumothorax. 3. Moderate size hiatus hernia. Cheo Martínez MD Cervical Spine CT 03/02/17 1342 Signed Impressions: Service Date/Time: Thursday, March 02, 2017 14:52 - CONCLUSION: Negative CT cervical spine. Cheo Martínez MD Abdomen/Pelvis CT 03/02/17 1342 Signed Impressions: Service Date/Time: Thursday, March 02, 2017 15:04 - CONCLUSION: Moderate size hiatus hernia. Scattered small sigmoid diverticula. Otherwise negative exam. Cheo Martínez MD Objective Remarks GENERAL: middle-aged male, lying in bed, very confused. HEENT: multiple abrasions over his forehead, left ear, left cheek, left elbow. perrl. mucous membranes dry. NECK: no jvd. trachea midline. CHEST: equal chest rise. clear to auscultation CARDIOVASCULAR: normal rate, regular rhythm. no appreciable murmurs ABDOMEN: soft, nontender, nondistended. no guarding. MUSCULOSKELETAL: distal pulses 2+. no peripheral edema. NEUROLOGICAL: RASS -1/+1. CAM+. No focal deficits. Patient is very inattentive. Slurred speech. A/P Assessment and Plan Assessment: This is a 61yM with severe life-threatening hyponatremia, hypokalemia, hypophosphatemia, dehydration, rhabdomyolysis, acute kidney injury , metabolic encephalopathy, end-stage liver disease, and etoh withdraw. Despite agressive replacement, he remains very critically ill with multiple severe metabolic derangements that continue to be life-threatening. In addition, He is in likely mixed distributive and cardiogenic shock. Cardiomyopathy is most likely alcoholic in nature, vs. vitamin induced. We will continue serial electrolytes and aggressive replacements. continue to wean vasopressors as tolerated. Plan by systems: Neurologic: Metabolic Encephalopathy Alcoholism Hepatic Encephalopathy Alcohol withdraw -- likely multifactorial, including possible Wernicke's, hyponatremia, hyperammonemia, hepatic encephalopathy -- iv thiamine, mvi -- ativan and librium for withdraw -- continue lactulose Respiratory: -- I.S. to bedside -- OOB today with PT. -- wean o2 by NC for spo2 > 92% Cardiovascular: Hypotension secondary to dehydration, vasoplegia -- continue Levophed for goal map > 65 mmHg. -- continue milrinone at 0.5 mcg/kg/min. -- elevated troponin likely from rhabdomyolysis. no symptoms of acute coronary syndrome. MB Ratio normal. -- 03/04 echo: global mod/severe LV dysfunction. Renal: Acute Kidney Injury- improved. Rhabdomyolysis- resolving. -- ck's downtrending. stop trending. -- continue hodgson -- Strict I/Os FEN/GI: Life-threatening Hyponatremia Life-threatening Hypophosphatemia Life-threatening Hypokalemia End-stage liver disease Hyperammonemia Acute protein calorie malnutrition- severe Severe Dehydration -- NS @ 75cc/hr. -- continue salt tabs, 1gm TID. -- serial sodiums, K, phos -- watch closely for refeeding syndrome -- daily bmp, lft, coags, mg, phos -- nutrition consult. high concern for refeeding syndrome. -- aggressive K, Phos, Mg replacements. -- place DHT. start trickle TF. do not advance. watch for refeeding syndrome. Heme/ID: Coagulopathy secondary to end-stage liver disease Thrombocytopenia secondary to end-stage liver disease Anemia secondary to end-stage liver disease and poor nutrition No infectious etiology suspected this time Leukocytosis likely reactive and downtrending. Daily coags, CBC Does not meet transfusion triggers at this time Endocrine: Hyperglycemia of critical illness -- SSI, medium scale, every 4 hours Prophylaxis: GI Prophylaxis Protonix IV DVT Prophylaxis -- SCDs Subcutaneous heparin. Patient's liver disease are often hypercoagulable even though they have evidence of coagulopathy. Lines: 4/1 L SC TLC --4/1 L radial art line --Hodgson Dispo: Remain in the ICU. He remains critically ill. This patient remains critically ill with one or more organ systems which are or may become a threat to life. I have spent in excess of 42 minutes discontinuously in the care and management of this patient. This time is exclusive of procedures, and includes, but is not limited to, evaluation of the patient, review of the medical record, discussions with family, consultants, nursing staff, or respiratory therapy, and documentation in the medical record. Tu Bryant MD Mar 05, 2017 07:17
[2017-03-05] MEDS: PANTOPRAZOLE SODIUM 40 MG VIAL IV SCH (08:55)
[2017-03-05] MEDS: SODIUM CHLORIDE 0.9% FLUSH 10 ML FLUSH IV FLUSH SCH ×2 (08:56→20:32)
[2017-03-05] MEDS: MULTIVITAMIN TAB PO SCH (10:07)
[2017-03-05] MEDS: LACTULOSE SYRUP 20 GM/30 ML CUP PO SCH ×4 (10:07→20:32)
[2017-03-05] MEDS: DOCUSATE SODIUM 100 MG/10 ML UDC G-TUBE SCH ×2 (10:07→20:32)
[2017-03-05] MEDS: SODIUM CHLORIDE 1 GRAM TAB PO SCH ×3 (10:07→16:54)
--- NOTE | 2017-03-05 10:26 | RADRPT ---
EXAM DATE/TIME: 03/05/2017 08:59 [facility] COMPARISON: CHEST SINGLE AP, March 02, 2017, 17:21. INDICATIONS : Dobhoff placement MEDICAL HISTORY : unobtainable SURGICAL HISTORY : Craniotomy. ENCOUNTER: Subsequent ACUITY: 3 days PAIN SCORE: Non-responsive. LOCATION: Bilateral chest FINDINGS: The examination demonstrates a left subclavian catheter in good position. There is a weighted feeding tube present through the tip the tube is in the gastric antrum. The lungs are clear. There degenerative changes in the left a.c. joint. The bony structures are otherwise intact. CONCLUSION: 1. The tip of the feeding tube is in the gastric antrum. Mihir Harry MD on March 05, 2017 at 10:22 Board Certified Radiologist. This report was verified electronically.
[2017-03-05 12:35] LABS: UR UREA/CREAT RATIO 5.23 mg/mg (())
[2017-03-05] MEDS: POTASSIUM CHLOR 40 MEQ PREMIX 100 ML IV SCH ×2 (17:44→19:53)
[2017-03-05] MEDS: POTASSIUM CHLORIDE 10 MEQ CONTROLLED RELEASE TAB PO SCH ×2 (17:45→19:59)
[2017-03-05] MEDS ORDERED: MAGNESIUM SULFATE INJ 4 GM in SODIUM CHLORIDE 0.9% INJ 92 ML IV ONE (18:00)
[2017-03-05] MEDS: SODIUM PHOSPHATE INJ 30 MMOL in SODIUM CHLOR 0.9% 250 ML INJ 240 ML IV SCH (18:16)
[2017-03-05] MEDS: LORazepam 2 MG/ML VIAL IV PUSH PRN (20:07)
[2017-03-05 21:01] LABS: MEAN CORPUSCULAR HGB CONC 36.4 % (32.0-36.0)
[2017-03-05 23:50] LABS: BICARBONATE 22.9 MEQ/L (21.0-32.0); POTASSIUM 4.9 MEQ/L (3.5-5.1)
[2017-03-06] VITALS (13 sets, daily range): BP systolic 86–99; BP diastolic 48–69; PULSE 59–95; RESP 14–21; TEMP 97–98.4; O2SAT 96–100
[2017-03-06] MEDS: SODIUM PHOSPHATE INJ 30 MMOL in SODIUM CHLOR 0.9% 250 ML INJ 240 ML IV SCH ×3 (00:47→12:22)
[2017-03-06] MEDS: MILRINONE INJ 20 MG in SODIUM CHLORIDE 0.9% INJ 80 ML IV SCH ×3 (00:47→20:24)
[2017-03-06] MEDS: HYDROCORTISONE SOD SUCCINATE 100 MG VIAL IV PUSH SCH ×5 (00:47→23:21)
[2017-03-06] MEDS: chlordiazePOXIDE 25 MG CAP PO SCH ×3 (00:47→18:04)
[2017-03-06] MEDS: LORazepam 2 MG/ML VIAL IV PUSH PRN (01:36)
[2017-03-06] MEDS: CHLORHEXIDINE GLUCONATE 2 % 1 PACK (2 CLOTHS) TOP SCH ×2 (04:00→21:09)
[2017-03-06] MEDS: INSULIN NovoLIN REGULAR SUPPLEMENTAL SCALE SQ SCH ×7 (04:00→23:22)
[2017-03-06 04:54] LABS: HEMATOCRIT 25.5 % (39.0-51.0); MEAN CORPUSCULAR HEMOGLOBIN 34.6 PG (27.0-34.0); PLATELET COUNT 52 TH/MM3 (150-450); RED BLOOD COUNT 2.68 MIL/MM3 (4.50-5.90); RED CELL DISTRIBUTION WIDTH 13.4 % (11.6-17.2); WHITE BLOOD COUNT 4.6 TH/MM3 (4.0-11.0)
[2017-03-06 05:03] LABS: REVIEW FLAG FINAL
[2017-03-06 05:06] LABS: APTT (PATIENT) 34.3 SEC (24.3-30.1); INTERNATIONAL NORMALIZED RATIO 1.2 RATIO; PROTHROMBIN TIME - PATIENT 13.4 SEC (9.8-11.6)
[2017-03-06 05:28] LABS: BICARBONATE 23.1 MEQ/L (21.0-32.0); INDIRECT BILIRUBIN 1.4 MG/DL (0.0-0.8); MAGNESIUM 2.2 MG/DL (1.5-2.5); POTASSIUM 3.9 MEQ/L (3.5-5.1); TOTAL BILIRUBIN ADULT 4.8 MG/DL (0.2-1.0)
[2017-03-06] MEDS: HEPARIN SODIUM - SQ 10,000 UNITS/ML VIAL SQ SCH ×2 (06:07→18:00)
[2017-03-06 07:45] LABS: CALCIUM-PROTEIN CORRECTED 8.3 MG/DL (8.5-10.1)
[2017-03-06] MEDS: SODIUM CHLORIDE 0.9% FLUSH 10 ML FLUSH IV FLUSH SCH ×2 (07:45→20:05)
[2017-03-06] MEDS: MULTIVITAMIN TAB PO SCH (07:46)
[2017-03-06] MEDS: DOCUSATE SODIUM 100 MG/10 ML UDC G-TUBE SCH ×2 (07:46→20:05)
[2017-03-06] MEDS: THIAMINE HCL 100 MG TAB PO SCH (07:46)
[2017-03-06] MEDS: SODIUM CHLORIDE 1 GRAM TAB PO SCH ×3 (07:46→18:03)
[2017-03-06] MEDS: PANTOPRAZOLE SODIUM 40 MG VIAL IV SCH (07:46)
[2017-03-06] MEDS: SODIUM CHLOR 0.9% 1000 ML INJ 1,000 ML IV SCH (07:46)
[2017-03-06] MEDS: LACTULOSE SYRUP 20 GM/30 ML CUP PO SCH ×4 (07:46→20:05)
--- NOTE | 2017-03-06 08:09 | HHI.CCPN ---
Subjective Remarks/Hospital Course Hospital Course: This is a 61-year-old male with a past history of alcohol abuse and a prior admission in 2015 for severe life-threatening hyponatremia at that time with a serum sodium of 98. He presents today with what he states is a 13 day history of worsening fatigue and weakness. He is very altered and is very difficult to understand the patient. What I can understand from him, is that at some point during these 13 days he has fallen and hit his face. Otherwise he states he lays on the couch, and has not gotten not much. He states he drinks 1 beer in the morning, and 1 beer in the afternoon. He does endorse taking some Xanax to help him sleep. He denies other drug use. He denies chest pain, shortness of breath, fever, chills, nausea, vomiting, abdominal pain. It is very difficult to get him to answer anymore questions about his medical history. His speech is very slurred and he is trying to talk about how he misses his daughter. Emergency department he was found to have a serum sodium of 99, a bilirubin of 8.9, lactate of 9.8, ammonia of 60, CK of 7000, elevated troponin of 4.9 with a normal MB ratio, creatinine 1.5, serum bicarbonate of 13. His white count is 12 , platelets 112. INR 1.9. His MELD calculates at 26. Subjective: 4: Sodium level rapidly corrected overnight, likely secondary to appropriate correction of severe life-threatening dehydration. NS fluids changed to 1/2NS and correction slowed down significantly. sodium up to 130 this AM. CK downtrending. however, patient remains severely hypotensive requiring levophed to maintain a map > 65 mmHg. This AM, serum K 1.6 (confirmed). started replacement with 200meq KCl and recheck K. 03/04: persists in vasoplegic distributive shock. afebrile. no evidence of infection. wbc downtrending. persists with severe life-threatening electrolyte derangements. passed swallow eval for nectar thick liquids. sodium stable at 131. ck downtrending. 03/05: persists in distributive shock. echo yesterday with EF 30%, globally decreased function. milrinone added yesterday with improvement in vasporessor requirement. still with multiple electrolyte abnormalities despite very aggressive replacement. very poor appetite. sodium stable at 131, which appears to be around baseline for him, looking back at prior records. also became agitated and delirious yesterday, likely secondary to etoh withdraw. started on ativan and librium. 03/06: electrolyte derangements persist. placed on continuous NaPhos infusion x 24h due to severe life-threatening hypophosphatemia. serial K, phos checks. weaning off levophed, milrinone persists. still poor appetite. sodium jumped from 132 to 139, but no significant mental status change, and we did not increase sodium load. Objective Vital Signs Date Time Temp Pulse Resp B/P Pulse Ox O2 Delivery O2 Flow Rate FiO2 03/06/17 06:00 85 03/06/17 04:00 98.4 21 96/51 96 96/66 03/05/17 11:53 21 03/02/17 17:30 Room Air Intake and Output 03/05/17 03/05/17 03/06/17 08:00 16:00 00:00 Intake Total 993 ml 1336 ml 1397 ml Output Total 800 ml 900 ml 650 ml Balance 193 ml 436 ml 747 ml Result Diagram: 03/06/17 0430 03/06/17 0430 Imaging Last Impressions Shoulder X-Ray 03/02/17 1404 Signed Impressions: Service Date/Time: Thursday, March 02, 2017 15:18 - CONCLUSION: No evidence of recent bony injury. Deformity of the lateral left clavicle suggests old healed trauma. Cheo Martínez MD Maxillofacial CT 03/02/17 1342 Signed Impressions: Service Date/Time: Thursday, March 02, 2017 14:52 - CONCLUSION: Negative CT of the facial bones. Cheo Martínez MD Head CT 03/02/17 1342 Signed Impressions: Service Date/Time: Thursday, March 02, 2017 14:52 - CONCLUSION: 1. Prominent scalp swelling left frontal and parietal region. No skull fracture seen. 2. Intracranial contents are intact without acute finding. Cheo Martínez MD Chest CT 03/02/17 1342 Signed Impressions: Service Date/Time: Thursday, March 02, 2017 15:04 - CONCLUSION: 1. Abnormal appearance of the lateral left clavicle suggesting a combination of acute and chronic bony injury. Fracture lucencies without bridging callus is seen the region of the coracoid process. 2. The lungs are clear. No evidence of pneumothorax. 3. Moderate size hiatus hernia. Cheo Martínez MD Cervical Spine CT 03/02/17 1342 Signed Impressions: Service Date/Time: Thursday, March 02, 2017 14:52 - CONCLUSION: Negative CT cervical spine. Cheo Martínez MD Abdomen/Pelvis CT 03/02/17 1342 Signed Impressions: Service Date/Time: Thursday, March 02, 2017 15:04 - CONCLUSION: Moderate size hiatus hernia. Scattered small sigmoid diverticula. Otherwise negative exam. Cheo Martínez MD Objective Remarks GENERAL: middle-aged male, lying in bed, very confused. HEENT: multiple abrasions over his forehead, left ear, left cheek, left elbow. perrl. mucous membranes moist. NECK: no jvd. trachea midline. CHEST: equal chest rise. clear to auscultation CARDIOVASCULAR: normal rate, regular rhythm. no appreciable murmurs ABDOMEN: soft, nontender, nondistended. no guarding. MUSCULOSKELETAL: distal pulses 2+. no peripheral edema. NEUROLOGICAL: RASS -1. CAM+. No focal deficits. Patient is very inattentive. Slurred speech. A/P Assessment and Plan Assessment: This is a 61yM with severe life-threatening hyponatremia, hypokalemia, hypophosphatemia, dehydration, rhabdomyolysis, acute kidney injury , metabolic encephalopathy, end-stage liver disease, and etoh withdraw. Despite agressive replacement, he remains very critically ill with multiple severe metabolic derangements that continue to be life-threatening. His shock is very slowly resolving. we now have some control over his electrolytes, though this is on continuous NaPhos infusion and >200meq KCL yesterday. we will continue with q6h serial electrolytes. we will slowly advance his tube feeding and watch the electrolytes closely for ongoing refeeding syndrome. He remains critically ill, ongoing shock, refeeding syndrome. Plan by systems: Neurologic: Metabolic Encephalopathy Alcoholism Hepatic Encephalopathy Alcohol withdraw -- likely multifactorial, including possible Wernicke's, hyponatremia, hyperammonemia, hepatic encephalopathy -- iv thiamine, mvi -- wean ativan to 0.5mg iv q4h prn -- wean Librium to 50mg po q12h. -- continue lactulose Respiratory: -- I.S. to bedside -- OOB today with PT. -- wean o2 by NC for spo2 > 92% Cardiovascular: Hypotension secondary to dehydration, vasoplegia Cardiogenic Shock Resolving distributive shock -- continue Levophed for goal map > 65 mmHg. -- continue milrinone at 0.5 mcg/kg/min. -- elevated troponin likely from rhabdomyolysis. no symptoms of acute coronary syndrome. MB Ratio normal. -- 03/04 echo: global mod/severe LV dysfunction. Renal: Acute Kidney Injury- resolved Rhabdomyolysis- resolved -- ck's downtrending. stop trending. -- continue hodgson -- Strict I/Os FEN/GI: Life-threatening Hyponatremia Life-threatening Hypophosphatemia Life-threatening Hypokalemia Refeeding Syndrome End-stage liver disease Hyperammonemia Acute protein calorie malnutrition- severe Severe Dehydration- resolving. -- decrease NS to 30 cc/hr. given jump in sodium and clinically more euvolemic. -- continue salt tabs, 1gm TID. -- serial sodiums, K, phos -- daily bmp, lft, coags, mg, phos -- nutrition consult. high concern for refeeding syndrome. -- aggressive K, Phos, Mg replacements. -- increase TF to 40cc/hr. -- continuous NaPhos infusion to end at 6pm. Heme/ID: Coagulopathy secondary to end-stage liver disease Thrombocytopenia secondary to end-stage liver disease Anemia secondary to end-stage liver disease and poor nutrition No infectious etiology suspected this time Leukocytosis likely reactive and downtrending. Daily coags, CBC Does not meet transfusion triggers at this time Endocrine: Hyperglycemia of critical illness -- SSI, medium scale, every 4 hours Prophylaxis: GI Prophylaxis Protonix IV DVT Prophylaxis -- SCDs Subcutaneous heparin. Patient's liver disease are often hypercoagulable even though they have evidence of coagulopathy. Lines: 4/1 L SC TLC --4/1 L radial art line --Hodgson Dispo: Remain in the ICU. He remains critically ill. This patient remains critically ill with one or more organ systems which are or may become a threat to life. I have spent in excess of 31 minutes discontinuously in the care and management of this patient. This time is exclusive of procedures, and includes, but is not limited to, evaluation of the patient, review of the medical record, discussions with family, consultants, nursing staff, or respiratory therapy, and documentation in the medical record. Tu Bryant MD Mar 06, 2017 08:09
[2017-03-06] MEDS ORDERED: LORazepam 2 MG/ML VIAL IV PUSH PRN (08:15)
[2017-03-06] MEDS: POTASSIUM CHLOR 40 MEQ PREMIX 100 ML IV PRN ×2 (12:41→14:52)
[2017-03-07] VITALS (12 sets, daily range): BP systolic 87–111; BP diastolic 53–92; PULSE 83–108; RESP 15–18; TEMP 97.7–98.2; O2SAT 96–98
[2017-03-07] MEDS: INSULIN NovoLIN REGULAR SUPPLEMENTAL SCALE SQ SCH ×6 (02:55→22:54)
[2017-03-07 03:00] LABS: HEMATOCRIT 24.6 % (39.0-51.0); MEAN CELL VOLUME 96.9 FL (80.0-100.0); MEAN CORPUSCULAR HEMOGLOBIN 34.7 PG (27.0-34.0); MEAN CORPUSCULAR HGB CONC 35.8 % (32.0-36.0); PLATELET COUNT 63 TH/MM3 (150-450); RED BLOOD COUNT 2.54 MIL/MM3 (4.50-5.90)
[2017-03-07 03:04] LABS: APTT (PATIENT) 28.1 SEC (24.3-30.1); INTERNATIONAL NORMALIZED RATIO 1.1 RATIO; PROTHROMBIN TIME - PATIENT 12.7 SEC (9.8-11.6)
[2017-03-07 03:06] LABS: REVIEW FLAG FINAL
[2017-03-07 03:33] LABS: BICARBONATE 25.3 MEQ/L (21.0-32.0); INDIRECT BILIRUBIN 0.8 MG/DL (0.0-0.8); MAGNESIUM 1.9 MG/DL (1.5-2.5); POTASSIUM 3.5 MEQ/L (3.5-5.1); TOTAL BILIRUBIN ADULT 3.3 MG/DL (0.2-1.0)
[2017-03-07] MEDS: MILRINONE INJ 20 MG in SODIUM CHLORIDE 0.9% INJ 80 ML IV SCH ×3 (04:52→22:55)
[2017-03-07] MEDS: HEPARIN SODIUM - SQ 10,000 UNITS/ML VIAL SQ SCH ×2 (04:52→17:47)
[2017-03-07] MEDS: chlordiazePOXIDE 25 MG CAP PO SCH ×3 (04:52→09:50)
[2017-03-07] MEDS: HYDROCORTISONE SOD SUCCINATE 100 MG VIAL IV PUSH SCH (04:53)
--- NOTE | 2017-03-07 07:29 | HHI.CCPN ---
Subjective Remarks/Hospital Course Hospital Course: This is a 61-year-old male with a past history of alcohol abuse and a prior admission in 2015 for severe life-threatening hyponatremia at that time with a serum sodium of 98. He presents today with what he states is a 13 day history of worsening fatigue and weakness. He is very altered and is very difficult to understand the patient. What I can understand from him, is that at some point during these 13 days he has fallen and hit his face. Otherwise he states he lays on the couch, and has not gotten not much. He states he drinks 1 beer in the morning, and 1 beer in the afternoon. He does endorse taking some Xanax to help him sleep. He denies other drug use. He denies chest pain, shortness of breath, fever, chills, nausea, vomiting, abdominal pain. It is very difficult to get him to answer anymore questions about his medical history. His speech is very slurred and he is trying to talk about how he misses his daughter. Emergency department he was found to have a serum sodium of 99, a bilirubin of 8.9, lactate of 9.8, ammonia of 60, CK of 7000, elevated troponin of 4.9 with a normal MB ratio, creatinine 1.5, serum bicarbonate of 13. His white count is 12 , platelets 112. INR 1.9. His MELD calculates at 26. Subjective: 4: Sodium level rapidly corrected overnight, likely secondary to appropriate correction of severe life-threatening dehydration. NS fluids changed to 1/2NS and correction slowed down significantly. sodium up to 130 this AM. CK downtrending. however, patient remains severely hypotensive requiring levophed to maintain a map > 65 mmHg. This AM, serum K 1.6 (confirmed). started replacement with 200meq KCl and recheck K. 03/04: persists in vasoplegic distributive shock. afebrile. no evidence of infection. wbc downtrending. persists with severe life-threatening electrolyte derangements. passed swallow eval for nectar thick liquids. sodium stable at 131. ck downtrending. 03/05: persists in distributive shock. echo yesterday with EF 30%, globally decreased function. milrinone added yesterday with improvement in vasporessor requirement. still with multiple electrolyte abnormalities despite very aggressive replacement. very poor appetite. sodium stable at 131, which appears to be around baseline for him, looking back at prior records. also became agitated and delirious yesterday, likely secondary to etoh withdraw. started on ativan and librium. 03/06: electrolyte derangements persist. placed on continuous NaPhos infusion x 24h due to severe life-threatening hypophosphatemia. serial K, phos checks. weaning off levophed, milrinone persists. still poor appetite. sodium jumped from 132 to 139, but no significant mental status change, and we did not increase sodium load. 03/07: still requiring high electrolyte replacement. milrinone weaned to 0.375 mcg /kg/min overnight. still doing well with that. delirium persists. Objective Vital Signs Date Time Temp Pulse Resp B/P Pulse Ox O2 Delivery O2 Flow Rate FiO2 03/07/17 06:00 95 03/07/17 04:00 98.0 17 108/59 98 94/67 03/06/17 20:20 21 Intake and Output 03/06/17 03/06/17 03/07/17 08:00 16:00 00:00 Intake Total 1183 ml 1749 ml 475 ml Output Total 450 ml 600 ml 450 ml Balance 733 ml 1149 ml 25 ml Result Diagram: 03/07/17 0241 03/07/17 0241 Imaging Last Impressions Shoulder X-Ray 03/02/17 1404 Signed Impressions: Service Date/Time: Thursday, March 02, 2017 15:18 - CONCLUSION: No evidence of recent bony injury. Deformity of the lateral left clavicle suggests old healed trauma. Cheo Martínez MD Maxillofacial CT 03/02/17 1342 Signed Impressions: Service Date/Time: Thursday, March 02, 2017 14:52 - CONCLUSION: Negative CT of the facial bones. Cheo Martínez MD Head CT 03/02/17 1342 Signed Impressions: Service Date/Time: Thursday, March 02, 2017 14:52 - CONCLUSION: 1. Prominent scalp swelling left frontal and parietal region. No skull fracture seen. 2. Intracranial contents are intact without acute finding. Cheo Martínez MD Chest CT 03/02/17 1342 Signed Impressions: Service Date/Time: Thursday, March 02, 2017 15:04 - CONCLUSION: 1. Abnormal appearance of the lateral left clavicle suggesting a combination of acute and chronic bony injury. Fracture lucencies without bridging callus is seen the region of the coracoid process. 2. The lungs are clear. No evidence of pneumothorax. 3. Moderate size hiatus hernia. Cheo Martínez MD Cervical Spine CT 03/02/17 1342 Signed Impressions: Service Date/Time: Thursday, March 02, 2017 14:52 - CONCLUSION: Negative CT cervical spine. Cheo Martínez MD Abdomen/Pelvis CT 03/02/17 1342 Signed Impressions: Service Date/Time: Thursday, March 02, 2017 15:04 - CONCLUSION: Moderate size hiatus hernia. Scattered small sigmoid diverticula. Otherwise negative exam. Cheo Martínez MD Objective Remarks GENERAL: middle-aged male, lying in bed, very confused. HEENT: multiple abrasions over his forehead, left ear, left cheek, left elbow. perrl. mucous membranes moist. NECK: no jvd. trachea midline. CHEST: equal chest rise. clear to auscultation CARDIOVASCULAR: normal rate, regular rhythm. no appreciable murmurs ABDOMEN: soft, nontender, nondistended. no guarding. MUSCULOSKELETAL: distal pulses 2+. no peripheral edema. NEUROLOGICAL: RASS -1. CAM+. No focal deficits. Patient is very inattentive. Slurred speech. A/P Assessment and Plan Assessment: This is a 61yM with severe life-threatening hyponatremia, hypokalemia, hypophosphatemia, dehydration, rhabdomyolysis, acute kidney injury , metabolic encephalopathy, end-stage liver disease, and etoh withdraw. He still requires aggressive electrolyte replacements. His distributive shock has resolved, and his cardiogenic shock is slowly resolving as well. continue to wean milrinone today. continue serial phos. ongoing refeeding syndrome. Plan by systems: Neurologic: Metabolic Encephalopathy Alcoholism Hepatic Encephalopathy Alcohol withdraw -- likely multifactorial, including possible Wernicke's, hyponatremia, hyperammonemia, hepatic encephalopathy -- iv thiamine, mvi -- ativan to 0.5mg iv q4h prn -- wean Librium to 50mg po daily. -- continue lactulose Respiratory: -- I.S. to bedside -- OOB today with PT. -- wean o2 by NC for spo2 > 92% Cardiovascular: Hypotension secondary to dehydration, vasoplegia Cardiogenic Shock Resolving distributive shock -- wean milrinone to 0.25 mcg/kg/min. -- elevated troponin likely from rhabdomyolysis. no symptoms of acute coronary syndrome. MB Ratio normal. -- / echo: global mod/severe LV dysfunction. Renal: Acute Kidney Injury- resolved Rhabdomyolysis- resolved -- continue hodgson -- Strict I/Os FEN/GI: Life-threatening Hyponatremia Life-threatening Hypophosphatemia Life-threatening Hypokalemia Refeeding Syndrome End-stage liver disease Hyperammonemia Acute protein calorie malnutrition- severe Severe Dehydration- resolving. -- saline lock ivf. -- d/c salt tabs. -- frequent K, phos checks. -- daily bmp, lft, coags, mg, phos -- nutrition consult. high concern for refeeding syndrome. -- aggressive K, Phos, Mg replacements. -- TF at goal. Heme/ID: Coagulopathy secondary to end-stage liver disease Thrombocytopenia secondary to end-stage liver disease Anemia secondary to end-stage liver disease and poor nutrition No infectious etiology suspected this time Leukocytosis likely reactive and downtrending. Daily coags, CBC Does not meet transfusion triggers at this time Endocrine: Hyperglycemia of critical illness -- SSI, medium scale, every 4 hours Prophylaxis: GI Prophylaxis Protonix IV DVT Prophylaxis -- SCDs Subcutaneous heparin. Patient's liver disease are often hypercoagulable even though they have evidence of coagulopathy. Lines: 4/1 L SC TLC --4/1 L radial art line --Hodgson Dispo: Remain in the ICU. Tu Bryant MD Mar 07, 2017 07:29
[2017-03-07] MEDS: SODIUM CHLORIDE 0.9% FLUSH 10 ML FLUSH IV FLUSH SCH ×2 (09:00→19:20)
[2017-03-07] MEDS: MULTIVITAMIN TAB PO SCH (09:48)
[2017-03-07] MEDS: POTASSIUM PHOSPHATE MONOBASIC 500 MG TAB PO SCH ×2 (09:49→19:42)
[2017-03-07] MEDS: THIAMINE HCL 100 MG TAB PO SCH (09:49)
[2017-03-07] MEDS: FAMOTIDINE 20 MG TAB NG SCH ×2 (09:49→19:42)
[2017-03-07] MEDS: LACTULOSE SYRUP 20 GM/30 ML CUP PO SCH ×4 (09:50→19:20)
[2017-03-07] MEDS: DOCUSATE SODIUM 100 MG/10 ML UDC G-TUBE SCH ×2 (09:50→19:25)
[2017-03-07] MEDS: predniSONE 5 MG/5 ML CUP PO SCH (10:42)
[2017-03-07] MEDS: CHLORHEXIDINE GLUCONATE 2 % 1 PACK (2 CLOTHS) TOP SCH (19:21)
[2017-03-08] VITALS (13 sets, daily range): BP systolic 84–106; BP diastolic 45–79; PULSE 89–107; RESP 15–18; TEMP 97.9–100; O2SAT 96–97
[2017-03-08 03:15] LABS: HEMATOCRIT 25.8 % (39.0-51.0); MEAN CELL VOLUME 99.7 FL (80.0-100.0); MEAN CORPUSCULAR HEMOGLOBIN 33.9 PG (27.0-34.0); PLATELET COUNT 75 TH/MM3 (150-450); RED BLOOD COUNT 2.59 MIL/MM3 (4.50-5.90); RED CELL DISTRIBUTION WIDTH 14.3 % (11.6-17.2); WHITE BLOOD COUNT 4.2 TH/MM3 (4.0-11.0)
[2017-03-08 03:16] LABS: REVIEW FLAG FINAL
[2017-03-08] MEDS: INSULIN NovoLIN REGULAR SUPPLEMENTAL SCALE SQ SCH ×5 (03:22→20:00)
[2017-03-08 03:26] LABS: APTT (PATIENT) 27.2 SEC (24.3-30.1); INTERNATIONAL NORMALIZED RATIO 1.1 RATIO; PROTHROMBIN TIME - PATIENT 12.4 SEC (9.8-11.6)
[2017-03-08 03:40] LABS: BICARBONATE 29.7 MEQ/L (21.0-32.0); POTASSIUM 3.4 MEQ/L (3.5-5.1)
[2017-03-08 03:43] LABS: INDIRECT BILIRUBIN 0.6 MG/DL (0.0-0.8); TOTAL BILIRUBIN ADULT 2.4 MG/DL (0.2-1.0)
[2017-03-08] MEDS: HEPARIN SODIUM - SQ 10,000 UNITS/ML VIAL SQ SCH ×2 (03:57→18:34)
[2017-03-08] MEDS: POTASSIUM PHOSPHATE MONOBASIC 500 MG TAB PO/TUBE PRN (04:18)
[2017-03-08] MEDS: POTASSIUM CHLOR 40 MEQ PREMIX 100 ML IV PRN (04:19)
[2017-03-08] MEDS: DOCUSATE SODIUM 100 MG/10 ML UDC G-TUBE SCH ×2 (09:00→21:19)
[2017-03-08] MEDS: SODIUM CHLORIDE 0.9% FLUSH 10 ML FLUSH IV FLUSH SCH ×2 (09:00→21:00)
[2017-03-08] MEDS: LACTULOSE SYRUP 20 GM/30 ML CUP PO SCH ×4 (09:07→21:19)
[2017-03-08] MEDS: MULTIVITAMIN TAB PO SCH (09:07)
[2017-03-08] MEDS: chlordiazePOXIDE 25 MG CAP PO SCH (09:08)
[2017-03-08] MEDS: predniSONE 5 MG/5 ML CUP PO SCH (09:08)
[2017-03-08] MEDS: THIAMINE HCL 100 MG TAB PO SCH (09:08)
[2017-03-08] MEDS: FAMOTIDINE 20 MG TAB NG SCH ×2 (09:08→21:19)
[2017-03-08] MEDS: POTASSIUM PHOSPHATE MONOBASIC 500 MG TAB PO SCH ×2 (11:35→21:19)
--- NOTE | 2017-03-08 14:44 | HHI.CCPN ---
Subjective Remarks/Hospital Course Hospital Course: This is a 61-year-old male with a past history of alcohol abuse and a prior admission in 2015 for severe life-threatening hyponatremia at that time with a serum sodium of 98. He presents today with what he states is a 13 day history of worsening fatigue and weakness. He is very altered and is very difficult to understand the patient. What I can understand from him, is that at some point during these 13 days he has fallen and hit his face. Otherwise he states he lays on the couch, and has not gotten not much. He states he drinks 1 beer in the morning, and 1 beer in the afternoon. He does endorse taking some Xanax to help him sleep. He denies other drug use. He denies chest pain, shortness of breath, fever, chills, nausea, vomiting, abdominal pain. It is very difficult to get him to answer anymore questions about his medical history. His speech is very slurred and he is trying to talk about how he misses his daughter. Emergency department he was found to have a serum sodium of 99, a bilirubin of 8.9, lactate of 9.8, ammonia of 60, CK of 7000, elevated troponin of 4.9 with a normal MB ratio, creatinine 1.5, serum bicarbonate of 13. His white count is 12 , platelets 112. INR 1.9. His MELD calculates at 26. Subjective: 4: Sodium level rapidly corrected overnight, likely secondary to appropriate correction of severe life-threatening dehydration. NS fluids changed to 1/2NS and correction slowed down significantly. sodium up to 130 this AM. CK downtrending. however, patient remains severely hypotensive requiring levophed to maintain a map > 65 mmHg. This AM, serum K 1.6 (confirmed). started replacement with 200meq KCl and recheck K. 03/04: persists in vasoplegic distributive shock. afebrile. no evidence of infection. wbc downtrending. persists with severe life-threatening electrolyte derangements. passed swallow eval for nectar thick liquids. sodium stable at 131. ck downtrending. 03/05: persists in distributive shock. echo yesterday with EF 30%, globally decreased function. milrinone added yesterday with improvement in vasporessor requirement. still with multiple electrolyte abnormalities despite very aggressive replacement. very poor appetite. sodium stable at 131, which appears to be around baseline for him, looking back at prior records. also became agitated and delirious yesterday, likely secondary to etoh withdraw. started on ativan and librium. 03/06: electrolyte derangements persist. placed on continuous NaPhos infusion x 24h due to severe life-threatening hypophosphatemia. serial K, phos checks. weaning off levophed, milrinone persists. still poor appetite. sodium jumped from 132 to 139, but no significant mental status change, and we did not increase sodium load. 03/07: still requiring high electrolyte replacement. milrinone weaned to 0.375 mcg /kg/min overnight. still doing well with that. delirium persists. 03/08 Remains on milrinone. Electrolyte improving. Remains very lethargic, intermittently follows commands Objective Vital Signs Date Time Temp Pulse Resp B/P Pulse Ox O2 Delivery O2 Flow Rate FiO2 03/08/17 08:00 99.5 97 18 84/46 96 100/68 03/06/17 20:20 21 Intake and Output 03/07/17 03/07/17 03/08/17 08:00 16:00 00:00 Intake Total 375 ml 557 ml 375 ml Output Total 550 ml 550 ml 525 ml Balance -175 ml 7 ml -150 ml Result Diagram: 03/08/17 0309 03/08/17 0309 Imaging Last Impressions Shoulder X-Ray 03/02/17 1404 Signed Impressions: Service Date/Time: Thursday, March 02, 2017 15:18 - CONCLUSION: No evidence of recent bony injury. Deformity of the lateral left clavicle suggests old healed trauma. Cheo Martínez MD Maxillofacial CT 03/02/17 1342 Signed Impressions: Service Date/Time: Thursday, March 02, 2017 14:52 - CONCLUSION: Negative CT of the facial bones. Cheo Martínez MD Head CT 03/02/17 1342 Signed Impressions: Service Date/Time: Thursday, March 02, 2017 14:52 - CONCLUSION: 1. Prominent scalp swelling left frontal and parietal region. No skull fracture seen. 2. Intracranial contents are intact without acute finding. Cheo Martínez MD Chest CT 03/02/17 1342 Signed Impressions: Service Date/Time: Thursday, March 02, 2017 15:04 - CONCLUSION: 1. Abnormal appearance of the lateral left clavicle suggesting a combination of acute and chronic bony injury. Fracture lucencies without bridging callus is seen the region of the coracoid process. 2. The lungs are clear. No evidence of pneumothorax. 3. Moderate size hiatus hernia. Cheo Martínez MD Cervical Spine CT 03/02/17 1342 Signed Impressions: Service Date/Time: Thursday, March 02, 2017 14:52 - CONCLUSION: Negative CT cervical spine. Cheo Martínez MD Abdomen/Pelvis CT 03/02/17 1342 Signed Impressions: Service Date/Time: Thursday, March 02, 2017 15:04 - CONCLUSION: Moderate size hiatus hernia. Scattered small sigmoid diverticula. Otherwise negative exam. Cheo Martínez MD Objective Remarks GENERAL: middle-aged male, lying in bed, very confused. HEENT: multiple abrasions over his forehead, left ear, left cheek, left elbow. perrl. mucous membranes moist. NECK: no jvd. trachea midline. CHEST: equal chest rise. clear to auscultation CARDIOVASCULAR: normal rate, regular rhythm. no appreciable murmurs ABDOMEN: soft, nontender, nondistended. no guarding. MUSCULOSKELETAL: distal pulses 2+. no peripheral edema. NEUROLOGICAL: RASS -1. CAM+. No focal deficits. Delirious. Slurred speech. Urinary Catheter: Yes Assessment to: Continue A/P Assessment and Plan Assessment: This is a 61yM with severe life-threatening hyponatremia, hypokalemia, hypophosphatemia, dehydration, rhabdomyolysis, acute kidney injury , metabolic encephalopathy, end-stage liver disease, and etoh withdraw. He still requires aggressive electrolyte replacements. His distributive shock has resolved, and his cardiogenic shock is slowly resolving as well. continue to wean milrinone today. continue serial phos. ongoing refeeding syndrome. Plan by systems: Neurologic: Metabolic Encephalopathy Alcoholism Hepatic Encephalopathy Alcohol withdraw -- likely multifactorial, including possible Wernicke's, hyponatremia, hyperammonemia, hepatic encephalopathy -- Continue iv thiamine, mvi -- ativan to 0.5mg iv q4h prn -- Librium to 50mg po daily. -- continue lactulose Respiratory: -- I.S. to bedside -- OOB today with PT. -- wean o2 by NC for spo2 > 90% Cardiovascular: Hypotension secondary to dehydration, vasoplegia Cardiogenic Shock Resolving distributive shock -- Continue milrinone to 0.25 mcg/kg/min. -- elevated troponin likely from rhabdomyolysis. no symptoms of acute coronary syndrome. MB Ratio normal. -- / echo: global mod/severe LV dysfunction. Renal: Acute Kidney Injury- resolved Rhabdomyolysis- resolved -- continue hodgson -- Strict I/Os FEN/GI: Life-threatening Hyponatremia Life-threatening Hypophosphatemia Life-threatening Hypokalemia Refeeding Syndrome End-stage liver disease Hyperammonemia Acute protein calorie malnutrition- severe Severe Dehydration- resolving. -- saline lock ivf. -- Off salt tabs. -- frequent K, phos checks. -- daily bmp, lft, coags, mg, phos -- nutrition consult. high concern for refeeding syndrome. -- aggressive K, Phos, Mg replacements. -- TF at goal. Swallow eval Heme/ID: Coagulopathy secondary to end-stage liver disease Thrombocytopenia secondary to end-stage liver disease Anemia secondary to end-stage liver disease and poor nutrition No infectious etiology suspected this time Leukocytosis likely reactive and downtrending. Daily coags, CBC Does not meet transfusion triggers at this time Endocrine: Hyperglycemia of critical illness -- SSI, medium scale, every 4 hours Prophylaxis: GI Prophylaxis Protonix IV DVT Prophylaxis -- SCDs Subcutaneous heparin. Patient's liver disease are often hypercoagulable even though they have evidence of coagulopathy. Lines: 4/1 L SC TLC --4/1 L radial art line --Hodgson Dispo: Remain in the ICU. Jeyson Shirley MD Mar 08, 2017 14:44
[2017-03-09] VITALS (14 sets, daily range): BP systolic 92–115; BP diastolic 60–79; PULSE 85–108; RESP 17–22; TEMP 98.8–100.1; O2SAT 95–98
[2017-03-09] MEDS: INSULIN NovoLIN REGULAR SUPPLEMENTAL SCALE SQ SCH ×5 (04:00→20:00)
[2017-03-09] MEDS: CHLORHEXIDINE GLUCONATE 2 % 1 PACK (2 CLOTHS) TOP SCH (04:00)
[2017-03-09 05:15] LABS: HEMATOCRIT 26.4 % (39.0-51.0); MEAN CELL VOLUME 101.2 FL (80.0-100.0); MEAN CORPUSCULAR HEMOGLOBIN 33.9 PG (27.0-34.0); MEAN CORPUSCULAR HGB CONC 33.5 % (32.0-36.0); PLATELET COUNT 79 TH/MM3 (150-450); RED BLOOD COUNT 2.61 MIL/MM3 (4.50-5.90); RED CELL DISTRIBUTION WIDTH 14.3 % (11.6-17.2); WHITE BLOOD COUNT 4.8 TH/MM3 (4.0-11.0)
[2017-03-09 05:16] LABS: APTT (PATIENT) 27.6 SEC (24.3-30.1); INTERNATIONAL NORMALIZED RATIO 1.1 RATIO
[2017-03-09 05:19] LABS: REVIEW FLAG FINAL
[2017-03-09 05:23] LABS: BICARBONATE 30.1 MEQ/L (21.0-32.0); INDIRECT BILIRUBIN 0.6 MG/DL (0.0-0.8); MAGNESIUM 1.9 MG/DL (1.5-2.5); POTASSIUM 3.9 MEQ/L (3.5-5.1); TOTAL BILIRUBIN ADULT 2.2 MG/DL (0.2-1.0)
[2017-03-09] MEDS: HEPARIN SODIUM - SQ 10,000 UNITS/ML VIAL SQ SCH ×3 (06:04→22:04)
[2017-03-09] MEDS: LACTULOSE SYRUP 20 GM/30 ML CUP PO SCH ×4 (08:29→20:12)
[2017-03-09] MEDS: predniSONE 5 MG/5 ML CUP PO SCH (08:30)
[2017-03-09] MEDS: POTASSIUM PHOSPHATE MONOBASIC 500 MG TAB PO SCH ×2 (08:30→20:12)
[2017-03-09] MEDS: FAMOTIDINE 20 MG TAB NG SCH ×2 (08:30→20:12)
[2017-03-09] MEDS: DOCUSATE SODIUM 100 MG/10 ML UDC G-TUBE SCH ×2 (08:30→20:12)
[2017-03-09] MEDS: MULTIVITAMIN TAB PO SCH (08:30)
[2017-03-09] MEDS: chlordiazePOXIDE 25 MG CAP PO SCH (08:30)
[2017-03-09] MEDS: THIAMINE HCL 100 MG TAB PO SCH (08:31)
[2017-03-09] MEDS: SODIUM CHLORIDE 0.9% FLUSH 10 ML FLUSH IV FLUSH SCH ×2 (09:00→20:14)
--- NOTE | 2017-03-09 12:12 | HHI.CCPN ---
Subjective Remarks/Hospital Course Hospital Course: This is a 61-year-old male with a past history of alcohol abuse and a prior admission in 2015 for severe life-threatening hyponatremia at that time with a serum sodium of 98. He presents today with what he states is a 13 day history of worsening fatigue and weakness. He is very altered and is very difficult to understand the patient. What I can understand from him, is that at some point during these 13 days he has fallen and hit his face. Otherwise he states he lays on the couch, and has not gotten not much. He states he drinks 1 beer in the morning, and 1 beer in the afternoon. He does endorse taking some Xanax to help him sleep. He denies other drug use. He denies chest pain, shortness of breath, fever, chills, nausea, vomiting, abdominal pain. It is very difficult to get him to answer anymore questions about his medical history. His speech is very slurred and he is trying to talk about how he misses his daughter. Emergency department he was found to have a serum sodium of 99, a bilirubin of 8.9, lactate of 9.8, ammonia of 60, CK of 7000, elevated troponin of 4.9 with a normal MB ratio, creatinine 1.5, serum bicarbonate of 13. His white count is 12 , platelets 112. INR 1.9. His MELD calculates at 26. Subjective: 4: Sodium level rapidly corrected overnight, likely secondary to appropriate correction of severe life-threatening dehydration. NS fluids changed to 1/2NS and correction slowed down significantly. sodium up to 130 this AM. CK downtrending. however, patient remains severely hypotensive requiring levophed to maintain a map > 65 mmHg. This AM, serum K 1.6 (confirmed). started replacement with 200meq KCl and recheck K. 03/04: persists in vasoplegic distributive shock. afebrile. no evidence of infection. wbc downtrending. persists with severe life-threatening electrolyte derangements. passed swallow eval for nectar thick liquids. sodium stable at 131. ck downtrending. 03/05: persists in distributive shock. echo yesterday with EF 30%, globally decreased function. milrinone added yesterday with improvement in vasporessor requirement. still with multiple electrolyte abnormalities despite very aggressive replacement. very poor appetite. sodium stable at 131, which appears to be around baseline for him, looking back at prior records. also became agitated and delirious yesterday, likely secondary to etoh withdraw. started on ativan and librium. 03/06: electrolyte derangements persist. placed on continuous NaPhos infusion x 24h due to severe life-threatening hypophosphatemia. serial K, phos checks. weaning off levophed, milrinone persists. still poor appetite. sodium jumped from 132 to 139, but no significant mental status change, and we did not increase sodium load. 03/07: still requiring high electrolyte replacement. milrinone weaned to 0.375 mcg /kg/min overnight. still doing well with that. delirium persists. 03/08 Remains on milrinone. Electrolyte improving. Remains very lethargic, intermittently follows commands 03/09: Continues to be lethargic but wakes up follows some commands. Remains on milrinone will DC today. T max 100.1, urine output adequate sodium is 143 Objective Vital Signs Date Time Temp Pulse Resp B/P Pulse Ox O2 Delivery O2 Flow Rate FiO2 03/09/17 10:18 96 21 03/09/17 06:00 94 03/09/17 04:00 100.1 22 103/63 Intake and Output 03/08/17 03/08/17 03/09/17 08:00 16:00 00:00 Intake Total 375 ml 988 ml 490 ml Output Total 350 ml 400 ml 450 ml Balance 25 ml 588 ml 40 ml Result Diagram: 03/09/17 0320 03/09/17 0320 Imaging Last Impressions Shoulder X-Ray 03/02/17 1404 Signed Impressions: Service Date/Time: Thursday, March 02, 2017 15:18 - CONCLUSION: No evidence of recent bony injury. Deformity of the lateral left clavicle suggests old healed trauma. Cheo Martínez MD Maxillofacial CT 03/02/17 1342 Signed Impressions: Service Date/Time: Thursday, March 02, 2017 14:52 - CONCLUSION: Negative CT of the facial bones. Cheo Martínez MD Head CT 03/02/17 1342 Signed Impressions: Service Date/Time: Thursday, March 02, 2017 14:52 - CONCLUSION: 1. Prominent scalp swelling left frontal and parietal region. No skull fracture seen. 2. Intracranial contents are intact without acute finding. Cheo Martínez MD Chest CT 03/02/17 1342 Signed Impressions: Service Date/Time: Thursday, March 02, 2017 15:04 - CONCLUSION: 1. Abnormal appearance of the lateral left clavicle suggesting a combination of acute and chronic bony injury. Fracture lucencies without bridging callus is seen the region of the coracoid process. 2. The lungs are clear. No evidence of pneumothorax. 3. Moderate size hiatus hernia. Cheo Martínez MD Cervical Spine CT 03/02/17 134 Signed Impressions: Service Date/Time: Thursday, March 02, 2017 14:52 - CONCLUSION: Negative CT cervical spine. Cheo Martínez MD Abdomen/Pelvis CT 03/02/17 134 Signed Impressions: Service Date/Time: Thursday, March 02, 2017 15:04 - CONCLUSION: Moderate size hiatus hernia. Scattered small sigmoid diverticula. Otherwise negative exam. Cheo Martínez MD Objective Remarks GENERAL: middle-aged male, lying in bed, lethargic, incomprehensible speech. HEENT: multiple abrasions over his forehead, left ear, left cheek, left elbow. perrl. mucous membranes moist. NECK: no jvd. trachea midline. CHEST: equal chest rise. clear to auscultation CARDIOVASCULAR: normal rate, regular rhythm. no appreciable murmurs ABDOMEN: soft, nontender, nondistended. no guarding. MUSCULOSKELETAL: distal pulses 2+. no peripheral edema. NEUROLOGICAL: Lethargic wakes up to sternal rub was simple commands with upper extremity. Incomprehensible speech. No evident focal deficits Urinary Catheter: Yes Assessment to: Continue A/P Assessment and Plan Assessment: This is a 61yM with severe life-threatening hyponatremia, hypokalemia, hypophosphatemia, dehydration, rhabdomyolysis, acute kidney injury , metabolic encephalopathy, end-stage liver disease, and etoh withdraw. He still requires aggressive electrolyte replacements. His distributive shock has resolved, and his cardiogenic shock is slowly resolving as well. continue to wean milrinone today. continue serial phos. ongoing refeeding syndrome. Plan by systems: Neurologic: Metabolic Encephalopathy Hepatic Encephalopathy Alcohol withdrawal Alcohol dependence -- Likely multifactorial, including possible Wernicke's, hyponatremia, hyperammonemia, Hepatic encephalopathy -- Continue iv thiamine, MVI -- Ativan to 0.5mg iv q3h prn -- Librium to 50mg po daily-reduce to 25 mg PO daily -- Continue lactulose Respiratory: -- I.S. to bedside -- OOB with PT as tolerated -- Wean O2 by NC for spo2 > 90% Cardiovascular: Hypotension secondary to dehydration, vasoplegia Cardiogenic Shock Resolving distributive shock -- DC milrinone to 0.25 mcg/kg/min today -- Elevated troponin likely from rhabdomyolysis. no symptoms of acute coronary syndrome. MB Ratio normal. -- 03/04 echo: global mod/severe LV dysfunction. Renal: Acute Kidney Injury- resolved Rhabdomyolysis- resolved -- Continue Johns -- Strict I/Os FEN/GI: Life-threatening Hyponatremia Life-threatening Hypophosphatemia Life-threatening Hypokalemia Refeeding Syndrome End-stage liver disease Hyperammonemia Acute protein calorie malnutrition- severe Severe Dehydration- resolving. -- saline lock ivf. -- Na 143 today, frequent K, phos checks. -- daily bmp, lft, coags, mg, phos -- nutrition consult. high concern for refeeding syndrome. -- aggressive K, Phos, Mg replacements. -- TF at goal. Swallow eval Heme/ID: Coagulopathy secondary to end-stage liver disease Thrombocytopenia secondary to end-stage liver disease Anemia secondary to end-stage liver disease and poor nutrition No infectious etiology suspected this time Leukocytosis likely reactive and downtrending, now normal Daily coags, CBC Does not meet transfusion triggers at this time Endocrine: Hyperglycemia of critical illness -- SSI, medium scale, every 4 hours Prophylaxis: --GI Prophylaxis Protonix IV DVT Prophylaxis -- SCDs Subcutaneous heparin. Lines: 4/1 L SC TLC --4/1 L radial art line --Johns Dispo: Remain in the ICU. CCT 30 MIN Jeyson Shirley MD Mar 09, 2017 12:11
[2017-03-10] VITALS (10 sets, daily range): BP systolic 80–102; BP diastolic 57–86; PULSE 80–97; RESP 15–25; TEMP 98.3–100.2; O2SAT 95–98
[2017-03-10] MEDS: CHLORHEXIDINE GLUCONATE 2 % 1 PACK (2 CLOTHS) TOP SCH ×2 (00:07→21:56)
[2017-03-10] MEDS: INSULIN NovoLIN REGULAR SUPPLEMENTAL SCALE SQ SCH ×6 (04:00→19:49)
[2017-03-10 05:43] LABS: MAGNESIUM 1.9 MG/DL (1.5-2.5)
[2017-03-10] MEDS: HEPARIN SODIUM - SQ 10,000 UNITS/ML VIAL SQ SCH ×2 (05:45→18:03)
[2017-03-10] MEDS: LACTULOSE SYRUP 20 GM/30 ML CUP PO SCH ×4 (08:42→21:23)
[2017-03-10] MEDS: THIAMINE HCL 100 MG TAB PO SCH (08:42)
[2017-03-10] MEDS: FAMOTIDINE 20 MG TAB NG SCH ×2 (08:42→21:23)
[2017-03-10] MEDS: MULTIVITAMIN TAB PO SCH (08:43)
[2017-03-10] MEDS: POTASSIUM PHOSPHATE MONOBASIC 500 MG TAB PO SCH ×2 (08:43→21:23)
[2017-03-10] MEDS: DOCUSATE SODIUM 100 MG/10 ML UDC G-TUBE SCH ×2 (08:43→21:23)
[2017-03-10] MEDS: SODIUM CHLORIDE 0.9% FLUSH 10 ML FLUSH IV FLUSH SCH ×2 (08:44→21:24)
[2017-03-10] MEDS ORDERED: chlordiazePOXIDE 25 MG CAP PO SCH (09:00)
--- NOTE | 2017-03-10 12:47 | HHI.CCPN ---
Subjective Remarks/Hospital Course Hospital Course: This is a 61-year-old male with a past history of alcohol abuse and a prior admission in 2015 for severe life-threatening hyponatremia at that time with a serum sodium of 98. He presents today with what he states is a 13 day history of worsening fatigue and weakness. He is very altered and is very difficult to understand the patient. What I can understand from him, is that at some point during these 13 days he has fallen and hit his face. Otherwise he states he lays on the couch, and has not gotten not much. He states he drinks 1 beer in the morning, and 1 beer in the afternoon. He does endorse taking some Xanax to help him sleep. He denies other drug use. He denies chest pain, shortness of breath, fever, chills, nausea, vomiting, abdominal pain. It is very difficult to get him to answer anymore questions about his medical history. His speech is very slurred and he is trying to talk about how he misses his daughter. Emergency department he was found to have a serum sodium of 99, a bilirubin of 8.9, lactate of 9.8, ammonia of 60, CK of 7000, elevated troponin of 4.9 with a normal MB ratio, creatinine 1.5, serum bicarbonate of 13. His white count is 12 , platelets 112. INR 1.9. His MELD calculates at 26. Subjective: 4: Sodium level rapidly corrected overnight, likely secondary to appropriate correction of severe life-threatening dehydration. NS fluids changed to 1/2NS and correction slowed down significantly. sodium up to 130 this AM. CK downtrending. however, patient remains severely hypotensive requiring levophed to maintain a map > 65 mmHg. This AM, serum K 1.6 (confirmed). started replacement with 200meq KCl and recheck K. 03/04: persists in vasoplegic distributive shock. afebrile. no evidence of infection. wbc downtrending. persists with severe life-threatening electrolyte derangements. passed swallow eval for nectar thick liquids. sodium stable at 131. ck downtrending. 03/05: persists in distributive shock. echo yesterday with EF 30%, globally decreased function. milrinone added yesterday with improvement in vasporessor requirement. still with multiple electrolyte abnormalities despite very aggressive replacement. very poor appetite. sodium stable at 131, which appears to be around baseline for him, looking back at prior records. also became agitated and delirious yesterday, likely secondary to etoh withdraw. started on ativan and librium. 03/06: electrolyte derangements persist. placed on continuous NaPhos infusion x 24h due to severe life-threatening hypophosphatemia. serial K, phos checks. weaning off levophed, milrinone persists. still poor appetite. sodium jumped from 132 to 139, but no significant mental status change, and we did not increase sodium load. 03/07: still requiring high electrolyte replacement. milrinone weaned to 0.375 mcg /kg/min overnight. still doing well with that. delirium persists. 03/08 Remains on milrinone. Electrolyte improving. Remains very lethargic, intermittently follows commands 03/09: Continues to be lethargic but wakes up follows some commands. Remains on milrinone will DC today. T max 100.1, urine output adequate sodium is 143 03/10: More awake alert, ate 50% of break fast. Will DC Dobhoff. Discontinue arterial and central lines. Delirium also improved, remains weak Objective Vital Signs Date Time Temp Pulse Resp B/P Pulse Ox O2 Delivery O2 Flow Rate FiO2 03/10/17 09:31 97 21 03/10/17 08:00 98.3 91 23 97/68 Intake and Output 03/09/17 03/09/17 03/10/17 08:00 16:00 00:00 Intake Total 574 ml 733 ml 340 ml Output Total 620 ml 800 ml 675 ml Balance -46 ml -67 ml -335 ml Result Diagram: 03/09/17 0320 03/09/17 0320 Imaging Last Impressions Shoulder X-Ray 03/02/17 1404 Signed Impressions: Service Date/Time: Thursday, March 02, 2017 15:18 - CONCLUSION: No evidence of recent bony injury. Deformity of the lateral left clavicle suggests old healed trauma. Cheo Martínez MD Maxillofacial CT 03/02/17 4301 Signed Impressions: Service Date/Time: Thursday, March 02, 2017 14:52 - CONCLUSION: Negative CT of the facial bones. Cheo Martínez MD Head CT 03/02/17 8243 Signed Impressions: Service Date/Time: Thursday, March 02, 2017 14:52 - CONCLUSION: 1. Prominent scalp swelling left frontal and parietal region. No skull fracture seen. 2. Intracranial contents are intact without acute finding. Cheo Martínez MD Chest CT 03/02/17 1342 Signed Impressions: Service Date/Time: Thursday, March 02, 2017 15:04 - CONCLUSION: 1. Abnormal appearance of the lateral left clavicle suggesting a combination of acute and chronic bony injury. Fracture lucencies without bridging callus is seen the region of the coracoid process. 2. The lungs are clear. No evidence of pneumothorax. 3. Moderate size hiatus hernia. Cheo Martínez MD Cervical Spine CT 03/02/17 1342 Signed Impressions: Service Date/Time: Thursday, March 02, 2017 14:52 - CONCLUSION: Negative CT cervical spine. Cheo Martínez MD Abdomen/Pelvis CT 03/02/17 1342 Signed Impressions: Service Date/Time: Thursday, March 02, 2017 15:04 - CONCLUSION: Moderate size hiatus hernia. Scattered small sigmoid diverticula. Otherwise negative exam. Cheo Martínez MD Objective Remarks GENERAL: middle-aged male, lying in bed, lethargic, but more alert. HEENT: multiple abrasions over his forehead, left ear, left cheek, left elbow. perrl. mucous membranes moist. NECK: no jvd. trachea midline. CHEST: equal chest rise. clear to auscultation CARDIOVASCULAR: normal rate, regular rhythm. no appreciable murmurs ABDOMEN: soft, nontender, nondistended. no guarding. MUSCULOSKELETAL: distal pulses 2+. no peripheral edema. NEUROLOGICAL: Awake alert following commands, able to state his name. Improving speech. No evident focal deficits Urinary Catheter: Yes Assessment to: Remove Vascular Central Line Catheter: Yes Assessment to: Remove A/P Assessment and Plan Assessment: This is a 61yM with severe life-threatening hyponatremia, hypokalemia, hypophosphatemia, dehydration, rhabdomyolysis, acute kidney injury , metabolic encephalopathy, end-stage liver disease, and etoh withdraw. He still requires aggressive electrolyte replacements. His distributive and cardiogenic shock has resolved. Plan by systems: Neurologic: Metabolic Encephalopathy Hepatic Encephalopathy Alcohol withdrawal Alcohol dependence -- Likely multifactorial, including possible Wernicke's, hyponatremia, hyperammonemia, Hepatic encephalopathy -- Continue iv thiamine, MVI -- Ativan to 0.5mg iv q3h prn for agitation -- Librium 25 mg PO daily. DC in am -- Continue lactulose Respiratory: -- I.S. to bedside -- OOB with PT as tolerated -- Wean O2 by NC for spo2 > 90% Cardiovascular: Hypotension secondary to dehydration, vasoplegia-resolved Cardiogenic Shock-resolved Resolving distributive shock -- Off milrinone 03/09 -- Elevated troponin likely from rhabdomyolysis. no symptoms of acute coronary syndrome. MB Ratio normal. -- 03/04 echo: global mod/severe LV dysfunction. Renal: Acute Kidney Injury- resolved Rhabdomyolysis- resolved -- DC Johns -- Strict I/Os FEN/GI: Life-threatening Hyponatremia Life-threatening Hypophosphatemia Life-threatening Hypokalemia Refeeding Syndrome End-stage liver disease Hyperammonemia Acute protein calorie malnutrition- severe Severe Dehydration- resolved -- saline lock ivf. -- Na 143 03/09, frequent K, phos checks. -- daily bmp, lft, coags, mg, phos-electrolytes steadily improving -- nutrition consult. high concern for refeeding syndrome. -- aggressive K, Phos, Mg replacements. -- TF at goal. Patient is tolerating by mouth diet. Will DC tube feeds Heme/ID: Coagulopathy secondary to end-stage liver disease Thrombocytopenia secondary to end-stage liver disease Anemia secondary to end-stage liver disease and poor nutrition No infectious etiology suspected this time Leukocytosis likely reactive and downtrending, now normal Does not meet transfusion triggers at this time Endocrine: Hyperglycemia of critical illness -- SSI, medium scale, every 4 hours Prophylaxis: --GI Prophylaxis Protonix IV DVT Prophylaxis -- SCDs Subcutaneous heparin. Lines: 4/1 L SC TLC-DC 03/10 --4/1 L radial art line-DC 03/10 --Johns-DC 03/10 Dispo: Remain in the ICU, due to severe neuromuscular weakness, and high risk of acute decompensation Level 3 Jeyson Shirley MD Mar 10, 2017 12:47
[2017-03-11] VITALS (13 sets, daily range): BP systolic 89–122; BP diastolic 53–68; PULSE 74–89; RESP 18–24; TEMP 98.2–98.8; O2SAT 93–100
[2017-03-11] MEDS: HEPARIN SODIUM - SQ 10,000 UNITS/ML VIAL SQ SCH ×4 (00:31→22:19)
[2017-03-11] MEDS: INSULIN NovoLIN REGULAR SUPPLEMENTAL SCALE SQ SCH ×7 (04:00→23:53)
[2017-03-11 05:21] LABS: ALKALINE PHOSPHATASE 178 U/L (45-117); ALT (GPT) 133 U/L (12-78); ANION GAP 9 MEQ/L (5-15); AST (GOT) 196 U/L (15-37); BICARBONATE 28.5 MEQ/L (21.0-32.0); BLOOD UREA NITROGEN 16 MG/DL (7-18); CHLORIDE 97 MEQ/L (98-107); GLOMERULAR FILTRATION RATE 220 ML/MIN (>89); MAGNESIUM 1.9 MG/DL (1.5-2.5); POTASSIUM 3.8 MEQ/L (3.5-5.1); SODIUM (NA) 134 MEQ/L (136-145)
--- NOTE | 2017-03-11 07:26 | HHI.CCPN ---
Subjective Remarks/Hospital Course Hospital Course: This is a 61-year-old male with a past history of alcohol abuse and a prior admission in 2015 for severe life-threatening hyponatremia at that time with a serum sodium of 98. He presents today with what he states is a 13 day history of worsening fatigue and weakness. He is very altered and is very difficult to understand the patient. What I can understand from him, is that at some point during these 13 days he has fallen and hit his face. Otherwise he states he lays on the couch, and has not gotten not much. He states he drinks 1 beer in the morning, and 1 beer in the afternoon. He does endorse taking some Xanax to help him sleep. He denies other drug use. He denies chest pain, shortness of breath, fever, chills, nausea, vomiting, abdominal pain. It is very difficult to get him to answer anymore questions about his medical history. His speech is very slurred and he is trying to talk about how he misses his daughter. Emergency department he was found to have a serum sodium of 99, a bilirubin of 8.9, lactate of 9.8, ammonia of 60, CK of 7000, elevated troponin of 4.9 with a normal MB ratio, creatinine 1.5, serum bicarbonate of 13. His white count is 12 , platelets 112. INR 1.9. His MELD calculates at 26. Subjective: 4: Sodium level rapidly corrected overnight, likely secondary to appropriate correction of severe life-threatening dehydration. NS fluids changed to 1/2NS and correction slowed down significantly. sodium up to 130 this AM. CK downtrending. however, patient remains severely hypotensive requiring levophed to maintain a map > 65 mmHg. This AM, serum K 1.6 (confirmed). started replacement with 200meq KCl and recheck K. 03/04: persists in vasoplegic distributive shock. afebrile. no evidence of infection. wbc downtrending. persists with severe life-threatening electrolyte derangements. passed swallow eval for nectar thick liquids. sodium stable at 131. ck downtrending. 03/05: persists in distributive shock. echo yesterday with EF 30%, globally decreased function. milrinone added yesterday with improvement in vasporessor requirement. still with multiple electrolyte abnormalities despite very aggressive replacement. very poor appetite. sodium stable at 131, which appears to be around baseline for him, looking back at prior records. also became agitated and delirious yesterday, likely secondary to etoh withdraw. started on ativan and librium. 03/06: electrolyte derangements persist. placed on continuous NaPhos infusion x 24h due to severe life-threatening hypophosphatemia. serial K, phos checks. weaning off levophed, milrinone persists. still poor appetite. sodium jumped from 132 to 139, but no significant mental status change, and we did not increase sodium load. 03/07: still requiring high electrolyte replacement. milrinone weaned to 0.375 mcg /kg/min overnight. still doing well with that. delirium persists. 03/08 Remains on milrinone. Electrolyte improving. Remains very lethargic, intermittently follows commands 03/09: Continues to be lethargic but wakes up follows some commands. Remains on milrinone will DC today. T max 100.1, urine output adequate sodium is 143 03/10: More awake alert, ate 50% of break fast. Will DC Dobhoff. Discontinue arterial and central lines. Delirium also improved, remains weak 03/11: doing much better this morning. no complaints. still with poor appetite. electrolytes improved. Objective Vital Signs Date Time Temp Pulse Resp B/P Pulse Ox O2 Delivery O2 Flow Rate FiO2 03/11/17 06:00 76 03/11/17 04:00 98.7 19 92/61 93 03/10/17 09:31 21 Intake and Output 03/10/17 03/10/17 03/11/17 08:00 16:00 00:00 Intake Total 446 ml 634 ml 50 ml Output Total 600 ml 550 ml 300 ml Balance -154 ml 84 ml -250 ml Result Diagram: 03/09/17 0320 03/11/17 0311 Imaging Last Impressions Shoulder X-Ray 03/02/17 1404 Signed Impressions: Service Date/Time: Thursday, March 02, 2017 15:18 - CONCLUSION: No evidence of recent bony injury. Deformity of the lateral left clavicle suggests old healed trauma. Cheo Martínez MD Maxillofacial CT 03/02/17 1342 Signed Impressions: Service Date/Time: Thursday, March 02, 2017 14:52 - CONCLUSION: Negative CT of the facial bones. Cheo Martínez MD Head CT 03/02/17 1342 Signed Impressions: Service Date/Time: Thursday, March 02, 2017 14:52 - CONCLUSION: 1. Prominent scalp swelling left frontal and parietal region. No skull fracture seen. 2. Intracranial contents are intact without acute finding. Cheo Martínez MD Chest CT 03/02/17 1342 Signed Impressions: Service Date/Time: Thursday, March 02, 2017 15:04 - CONCLUSION: 1. Abnormal appearance of the lateral left clavicle suggesting a combination of acute and chronic bony injury. Fracture lucencies without bridging callus is seen the region of the coracoid process. 2. The lungs are clear. No evidence of pneumothorax. 3. Moderate size hiatus hernia. Cheo Martínez MD Cervical Spine CT 03/02/17 1342 Signed Impressions: Service Date/Time: Thursday, March 02, 2017 14:52 - CONCLUSION: Negative CT cervical spine. Cheo Martínez MD Abdomen/Pelvis CT 03/02/17 1342 Signed Impressions: Service Date/Time: Thursday, March 02, 2017 15:04 - CONCLUSION: Moderate size hiatus hernia. Scattered small sigmoid diverticula. Otherwise negative exam. Cheo Martínez MD Objective Remarks GENERAL: middle-aged male, lying in bed, resting comfortably, arousable. HEENT: multiple abrasions over his forehead, left ear, left cheek, left elbow. perrl. mucous membranes moist. NECK: no jvd. trachea midline. CHEST: equal chest rise. clear to auscultation CARDIOVASCULAR: normal rate, regular rhythm. no appreciable murmurs ABDOMEN: soft, nontender, nondistended. no guarding. MUSCULOSKELETAL: distal pulses 2+. no peripheral edema. NEUROLOGICAL: sleeping on my exam, but arousable. A/P Assessment and Plan Assessment: This is a 61yM with severe life-threatening hyponatremia, hypokalemia, hypophosphatemia, dehydration, rhabdomyolysis, acute kidney injury , metabolic encephalopathy, end-stage liver disease, and etoh withdraw. His electrolytes have now been stable. He is clinically improving. This is, however , his second episode of severe metabolic derangements at this hospital (prior admission in 2014). I am concerned about his overall ability to care for himself when he goes home. For now, we will work towards transferring him to the floor. Plan by systems: Neurologic: Metabolic Encephalopathy- resolving. Hepatic Encephalopathy- resolving. Alcohol withdrawal- resolving. Alcohol dependence -- Likely multifactorial, including possible Wernicke's, hyponatremia, hyperammonemia, Hepatic encephalopathy -- Continue iv thiamine, MVI -- Ativan to 0.5mg iv q3h prn for agitation -- d/c librium today. -- Continue lactulose Respiratory: -- I.S. to bedside -- OOB with PT as tolerated -- Wean O2 by NC for spo2 > 90% Cardiovascular: Hypotension secondary to dehydration, vasoplegia-resolved Cardiogenic Shock-resolved Resolving distributive shock -- Off milrinone 03/09 -- Elevated troponin likely from rhabdomyolysis. no symptoms of acute coronary syndrome. MB Ratio normal. -- 03/04 echo: global mod/severe LV dysfunction. Renal: Acute Kidney Injury- resolved Rhabdomyolysis- resolved -- DC Hodgson -- Strict I/Os FEN/GI: Life-threatening Hyponatremia- resolved. Life-threatening Hypophosphatemia- resolved. Life-threatening Hypokalemia- resolved. Refeeding Syndrome End-stage liver disease Hyperammonemia Acute protein calorie malnutrition- severe Severe Dehydration- resolved -- saline lock ivf. -- Na 143 03/09 -- daily bmp, lft, coags, mg, phos-electrolytes improved. -- nutrition consult. high concern for refeeding syndrome. -- aggressive K, Phos, Mg replacements. -- TF at goal. Patient is tolerating by mouth diet. Heme/ID: Coagulopathy secondary to end-stage liver disease Thrombocytopenia secondary to end-stage liver disease Anemia secondary to end-stage liver disease and poor nutrition No infectious etiology suspected this time Leukocytosis likely reactive and downtrending, now normal Does not meet transfusion triggers at this time Endocrine: Hyperglycemia of critical illness -- SSI, medium scale, every 4 hours Prophylaxis: --GI Prophylaxis Protonix IV DVT Prophylaxis -- SCDs Subcutaneous heparin. Lines: --d/c hodgson. Dispo: transfer to floor. will consult hospitalist. Tu Bryant MD Mar 11, 2017 07:26
[2017-03-11] MEDS: SODIUM CHLORIDE 0.9% FLUSH 10 ML FLUSH IV FLUSH SCH ×2 (08:40→19:45)
[2017-03-11] MEDS: POTASSIUM PHOSPHATE MONOBASIC 500 MG TAB PO SCH ×2 (08:41→19:45)
[2017-03-11] MEDS: FAMOTIDINE 20 MG TAB NG SCH ×2 (08:42→19:45)
[2017-03-11] MEDS: THIAMINE HCL 100 MG TAB PO SCH (08:42)
[2017-03-11] MEDS: MULTIVITAMIN TAB PO SCH (08:42)
[2017-03-11] MEDS: DOCUSATE SODIUM 100 MG/10 ML UDC G-TUBE SCH ×2 (08:42→19:45)
[2017-03-11] MEDS: LACTULOSE SYRUP 20 GM/30 ML CUP PO SCH ×4 (08:43→19:47)
[2017-03-11 23:20] LABS: BACTERIA, URINE MOD /hpf; BLOOD, URINE SMALL (NEG); COMMENT (UR) CATH-CULTURE IND; CULTURE IF INDICATED CATH CULTURE IND; GLUCOSE,URINE NEG (NEG); KETONE, URINE NEG (NEG); MUCUS URINE FEW /lpf (OCC); NITRITE,URINE NEG (NEG); RENAL EPITHELIAL CELLS 1 /hpf; TRANSITIONAL EPI CELLS, URINE 1 /hpf; URINE COLOR YELLOW (YELLW/STRAW)
[2017-03-12] VITALS (7 sets, daily range): BP systolic 87–119; BP diastolic 56–67; PULSE 76–107; RESP 16–21; TEMP 97.6–99.9; O2SAT 93–99
[2017-03-12] MEDS: CHLORHEXIDINE GLUCONATE 2 % 1 PACK (2 CLOTHS) TOP SCH (04:00)
[2017-03-12] MEDS: INSULIN NovoLIN REGULAR SUPPLEMENTAL SCALE SQ SCH ×5 (04:00→20:00)
[2017-03-12] MEDS: HEPARIN SODIUM - SQ 10,000 UNITS/ML VIAL SQ SCH ×3 (06:46→21:58)
[2017-03-12 07:51] LABS: HEMATOCRIT 29.8 % (39.0-51.0); MEAN CELL VOLUME 102.1 FL (80.0-100.0); MEAN CORPUSCULAR HEMOGLOBIN 34.7 PG (27.0-34.0); PLATELET COUNT 117 TH/MM3 (150-450); RED BLOOD COUNT 2.92 MIL/MM3 (4.50-5.90); RED CELL DISTRIBUTION WIDTH 14.2 % (11.6-17.2); REVIEW FLAG FINAL; WHITE BLOOD COUNT 4.6 TH/MM3 (4.0-11.0)
[2017-03-12 08:21] LABS: BICARBONATE 24.8 MEQ/L (21.0-32.0); POTASSIUM 3.7 MEQ/L (3.5-5.1)
[2017-03-12] MEDS: SODIUM CHLORIDE 0.9% FLUSH 10 ML FLUSH IV FLUSH SCH ×2 (09:00→21:57)
[2017-03-12] MEDS: DOCUSATE SODIUM 100 MG/10 ML UDC G-TUBE SCH ×2 (09:29→21:00)
[2017-03-12] MEDS: LACTULOSE SYRUP 20 GM/30 ML CUP PO SCH ×3 (09:29→21:54)
[2017-03-12] MEDS: MULTIVITAMIN TAB PO SCH (09:30)
[2017-03-12] MEDS: THIAMINE HCL 100 MG TAB PO SCH (09:30)
[2017-03-12] MEDS: FAMOTIDINE 20 MG TAB NG SCH ×2 (09:30→21:57)
[2017-03-12] MEDS: POTASSIUM PHOSPHATE MONOBASIC 500 MG TAB PO SCH ×2 (09:30→21:58)
--- NOTE | 2017-03-12 13:39 | HHI.PR ---
Subjective Remarks Follow-up life threatening multiple electrolyte abnormalities/hepatic and metabolic encephalopathy 03/12/17-patient seen and examined, alert and oriented 2, BP soft, afebrile. Objective Vitals Vital Signs Date Time Temp Pulse Resp B/P Pulse Ox O2 Delivery O2 Flow Rate FiO2 03/12/17 12:00 99.9 84 20 94/59 98 03/12/17 12:00 84 03/12/17 08:00 99.7 82 17 87/56 93 03/12/17 08:00 82 03/12/17 04:00 77 03/12/17 04:00 98.8 77 16 91/59 98 03/12/17 00:00 98.6 76 21 93/61 99 03/12/17 00:00 76 03/11/17 22:00 80 03/11/17 21:00 98 03/11/17 20:00 89 03/11/17 20:00 98.8 89 23 108/66 97 03/11/17 18:00 82 03/11/17 16:00 98.5 85 24 122/66 97 03/11/17 16:00 85 03/11/17 14:00 77 I/O 03/11/17 03/11/17 03/11/17 03/12/17 03/12/17 03/12/17 07:00 15:00 23:00 07:00 15:00 23:00 Intake Total 20 ml 50 ml 50 ml Output Total 575 ml 450 ml 1000 ml 800 ml Balance -555 ml -450 ml -950 ml -750 ml Intake Oral 20 ml 50 ml 50 ml Output Urine Total 575 ml 450 ml 1000 ml 800 ml # Bowel Movements 1 2 1 1 Result Diagram: 03/12/17 0725 03/12/17 0725 Imaging Last Impressions Chest X-Ray 03/05/17 0000 Signed Impressions: Service Date/Time: Sunday, March 05, 2017 08:59 - CONCLUSION: 1. The tip of the feeding tube is in the gastric antrum. Mihir Harry MD Shoulder X-Ray 03/02/17 1404 Signed Impressions: Service Date/Time: Thursday, March 02, 2017 15:18 - CONCLUSION: No evidence of recent bony injury. Deformity of the lateral left clavicle suggests old healed trauma. Cheo Martínez MD Maxillofacial CT 03/02/17 1342 Signed Impressions: Service Date/Time: Thursday, March 02, 2017 14:52 - CONCLUSION: Negative CT of the facial bones. Cheo Martínez MD Head CT 03/02/17 1342 Signed Impressions: Service Date/Time: Thursday, March 02, 2017 14:52 - CONCLUSION: 1. Prominent scalp swelling left frontal and parietal region. No skull fracture seen. 2. Intracranial contents are intact without acute finding. Cheo Martínez MD Chest CT 03/02/17 1342 Signed Impressions: Service Date/Time: Thursday, March 02, 2017 15:04 - CONCLUSION: 1. Abnormal appearance of the lateral left clavicle suggesting a combination of acute and chronic bony injury. Fracture lucencies without bridging callus is seen the region of the coracoid process. 2. The lungs are clear. No evidence of pneumothorax. 3. Moderate size hiatus hernia. Cheo Martínez MD Cervical Spine CT 03/02/17 1342 Signed Impressions: Service Date/Time: Thursday, March 02, 2017 14:52 - CONCLUSION: Negative CT cervical spine. Cheo Martínez MD Abdomen/Pelvis CT 03/02/17 1342 Signed Impressions: Service Date/Time: Thursday, March 02, 2017 15:04 - CONCLUSION: Moderate size hiatus hernia. Scattered small sigmoid diverticula. Otherwise negative exam. Cheo Martínez MD Objective Remarks GENERAL: NAD SKIN: Warm and dry. Multiple skin excoriations HEAD: Normocephalic. EYES: No scleral icterus. No injection or drainage. NECK: Supple, trachea midline. No JVD or lymphadenopathy. CARDIOVASCULAR: Regular rate and rhythm without murmurs, gallops, or rubs. RESPIRATORY: Breath sounds equal bilaterally. No accessory muscle use. GASTROINTESTINAL: Abdomen soft, non-tender, nondistended. MUSCULOSKELETAL: No cyanosis, or edema. BACK: Nontender without obvious deformity. No CVA tenderness. A/P Problem List: (1) Hepatic encephalopathy ICD Code: K72.90 Status: Acute (2) Liver disease ICD Code: K76.9 Status: Acute (3) Hypokalemia ICD Code: E87.6 Status: Acute (4) Lactic acidosis ICD Code: E87.2 Status: Acute (5) Altered mental status ICD Code: R41.82 Status: Acute (6) Elevated troponin ICD Code: R74.8 Status: Acute (7) Hyponatremia ICD Code: E87.1 Status: Acute Assessment and Plan 61-year-old man with Metabolic Encephalopathy- resolving. Hepatic Encephalopathy- resolving. Alcohol withdrawal- resolving. Alcohol dependence -- Likely multifactorial, including possible Wernicke's, hyponatremia, hyperammonemia, Hepatic encephalopathy -- Continue iv thiamine, MVI -- Ativan to 0.5mg iv q3h prn for agitation -- Continue lactulose however change to twice a day Hypotension secondary to dehydration, vasoplegia-resolved Cardiogenic Shock-resolved Resolving distributive shock -- Off milrinone 03/09 -- Elevated troponin likely from rhabdomyolysis. no symptoms of acute coronary syndrome. MB Ratio normal. -- 03/04 echo: global mod/severe LV dysfunction. Acute Kidney Injury- resolved Rhabdomyolysis- resolved -- Continue with Johns -- Strict I/Os Life-threatening Hyponatremia- resolved. Life-threatening Hypophosphatemia- resolved. Life-threatening Hypokalemia- resolved. Refeeding Syndrome End-stage liver disease Hyperammonemia Acute protein calorie malnutrition- severe Severe Dehydration- resolved -- daily bmp, lft, coags, mg, phos-electrolytes improved. -- nutrition consult. high concern for refeeding syndrome. -- aggressive K, Phos, Mg replacements. -- Patient is tolerating by mouth diet. Coagulopathy secondary to end-stage liver disease Thrombocytopenia secondary to end-stage liver disease Anemia secondary to end-stage liver disease and poor nutrition No infectious etiology suspected this time Hyperglycemia of critical illness -- SSI, medium scale, every 4 hours Prophylaxis: --GI Prophylaxis Protonix IV DVT Prophylaxis -- SCDs Subcutaneous heparin. Problem Qualifiers (1) Altered mental status: Qualified Code: R41.82 - Altered mental status, unspecified altered mental status type Logan Calderon MD Mar 12, 2017 13:38
[2017-03-13] VITALS (7 sets, daily range): BP systolic 94–110; BP diastolic 58–70; PULSE 70–107; RESP 16–20; TEMP 97.3–98.1; O2SAT 96–98
[2017-03-13] MEDS: CHLORHEXIDINE GLUCONATE 2 % 1 PACK (2 CLOTHS) TOP SCH (04:00)
[2017-03-13] MEDS: INSULIN NovoLIN REGULAR SUPPLEMENTAL SCALE SQ SCH ×6 (04:00→20:00)
[2017-03-13] MEDS: HEPARIN SODIUM - SQ 10,000 UNITS/ML VIAL SQ SCH ×2 (05:04→12:37)
[2017-03-13 06:09] LABS: AUTOMATED NEUTROPHIL # 3.5 TH/MM3 (1.8-7.7); BASOPHIL # 0.1 TH/MM3 (0-0.2); BASOPHIL % 1.3 % (0.0-2.0); EOSINOPHIL % 0.4 % (0.0-4.0); HEMATOCRIT 27.6 % (39.0-51.0); HEMO FLAGS DIFF FINAL; LYMPH % 23.2 % (9.0-44.0); LYMPHOCYTE # 1.3 TH/MM3 (1.0-4.8); MEAN CORPUSCULAR HGB CONC 34.3 % (32.0-36.0); MONO % 11.7 % (0.0-8.0); NEUT % 63.4 % (16.0-70.0); PLATELET COUNT 128 TH/MM3 (150-450); RED CELL DISTRIBUTION WIDTH 14.4 % (11.6-17.2); WHITE BLOOD COUNT 5.6 TH/MM3 (4.0-11.0)
[2017-03-13 06:33] LABS: ALKALINE PHOSPHATASE 190 U/L (45-117); ALT (GPT) 131 U/L (12-78); ANION GAP 8 MEQ/L (5-15); AST (GOT) 211 U/L (15-37); BICARBONATE 24.7 MEQ/L (21.0-32.0); BLOOD UREA NITROGEN 14 MG/DL (7-18); CHLORIDE 100 MEQ/L (98-107); GLOMERULAR FILTRATION RATE 220 ML/MIN (>89); POTASSIUM 3.5 MEQ/L (3.5-5.1); SODIUM (NA) 133 MEQ/L (136-145); TOTAL BILIRUBIN ADULT 3.4 MG/DL (0.2-1.0)
[2017-03-13] MEDS: POTASSIUM PHOSPHATE MONOBASIC 500 MG TAB PO SCH (08:38)
[2017-03-13] MEDS: FAMOTIDINE 20 MG TAB NG SCH (08:38)
[2017-03-13] MEDS: DOCUSATE SODIUM 100 MG/10 ML UDC G-TUBE SCH (08:38)
[2017-03-13] MEDS: LACTULOSE SYRUP 20 GM/30 ML CUP PO SCH (08:38)
[2017-03-13] MEDS: THIAMINE HCL 100 MG TAB PO SCH (08:38)
[2017-03-13] MEDS: MULTIVITAMIN TAB PO SCH (08:38)
[2017-03-13] MEDS: SODIUM CHLORIDE 0.9% FLUSH 10 ML FLUSH IV FLUSH SCH (08:44)
--- NOTE | 2017-03-13 12:23 | HHI.PR ---
Subjective Remarks Follow-up life threatening multiple electrolyte abnormalities/hepatic and metabolic encephalopathy 03/12/17-patient seen and examined, alert and oriented 2, BP soft, afebrile. 03/13/17-patient seen and examined, stable, no acute event overnight. Afebrile. Alert and oriented 2 Objective Vitals Vital Signs Date Time Temp Pulse Resp B/P Pulse Ox O2 Delivery O2 Flow Rate FiO2 03/13/17 08:00 97.3 76 18 105/63 98 03/13/17 04:00 97.6 90 16 97/58 98 03/13/17 00:00 97.9 86 18 101/64 97 03/12/17 20:15 107 03/12/17 20:00 98.1 97 16 98/60 98 03/12/17 16:30 98.1 88 20 95/61 97 I/O 03/12/17 03/12/17 03/12/17 03/13/17 03/13/17 03/13/17 07:00 15:00 23:00 07:00 15:00 23:00 Intake Total 50 ml 120 ml 100 ml Output Total 800 ml 375 ml 200 ml 800 ml Balance -750 ml -375 ml -80 ml -700 ml Intake Oral 50 ml 120 ml 100 ml Output Urine Total 800 ml 375 ml 200 ml 800 ml # Bowel Movements 1 2 0 1 Result Diagram: 03/13/17 0550 03/13/17 0550 Objective Remarks GENERAL: NAD SKIN: Warm and dry. Multiple skin excoriations HEAD: Normocephalic. EYES: No scleral icterus. No injection or drainage. NECK: Supple, trachea midline. No JVD or lymphadenopathy. CARDIOVASCULAR: Regular rate and rhythm without murmurs, gallops, or rubs. RESPIRATORY: Breath sounds equal bilaterally. No accessory muscle use. GASTROINTESTINAL: Abdomen soft, non-tender, nondistended. MUSCULOSKELETAL: No cyanosis, or edema. BACK: Nontender without obvious deformity. No CVA tenderness. A/P Problem List: (1) Hepatic encephalopathy ICD Code: K72.90 Status: Acute (2) Liver disease ICD Code: K76.9 Status: Acute (3) Hypokalemia ICD Code: E87.6 Status: Acute (4) Lactic acidosis ICD Code: E87.2 Status: Acute (5) Altered mental status ICD Code: R41.82 Status: Acute (6) Elevated troponin ICD Code: R74.8 Status: Acute (7) Hyponatremia ICD Code: E87.1 Status: Acute Assessment and Plan 61-year-old man with Metabolic Encephalopathy- resolving. Hepatic Encephalopathy- resolving. Alcohol withdrawal- resolving. Alcohol dependence -- Likely multifactorial, including possible Wernicke's, hyponatremia, hyperammonemia, Hepatic encephalopathy -- Continue iv thiamine, MVI -- Ativan to 0.5mg iv q3h prn for agitation -- Continue lactulose and monitor ammonia level Hypotension secondary to dehydration, vasoplegia-resolved Cardiogenic Shock-resolved Resolving distributive shock -- Elevated troponin likely from rhabdomyolysis. no symptoms of acute coronary syndrome. MB Ratio normal. -- 03/04 echo: global mod/severe LV dysfunction. Acute Kidney Injury- resolved Rhabdomyolysis- resolved -- Continue with Johns -- Strict I/Os Life-threatening Hyponatremia- resolved. Life-threatening Hypophosphatemia- resolved. Life-threatening Hypokalemia- resolved. Refeeding Syndrome End-stage liver disease Hyperammonemia Acute protein calorie malnutrition- severe Severe Dehydration- resolved -- daily bmp, lft, coags, mg, phos-electrolytes improved. -- aggressive K, Phos, Mg replacements. Coagulopathy secondary to end-stage liver disease Thrombocytopenia secondary to end-stage liver disease Anemia secondary to end-stage liver disease and poor nutrition No infectious etiology suspected this time Hyperglycemia of critical illness -- SSI, medium scale, every 4 hours Prophylaxis: --GI Prophylaxis Protonix IV DVT Prophylaxis -- SCDs Subcutaneous heparin. Problem Qualifiers (1) Altered mental status: Qualified Code: R41.82 - Altered mental status, unspecified altered mental status type Lgoan Calderon MD Mar 13, 2017 12:23
[2017-03-14] VITALS: BP 106/63; PULSE 84; RESP 18; TEMP 98.4; O2SAT 98
[2017-03-14] MEDS: SODIUM CHLORIDE 0.9% FLUSH 10 ML FLUSH IV FLUSH SCH ×3 (00:13→21:00)
[2017-03-14] MEDS: DOCUSATE SODIUM 100 MG/10 ML UDC G-TUBE SCH ×3 (00:13→22:28)
[2017-03-14] MEDS: FAMOTIDINE 20 MG TAB NG SCH ×3 (00:13→21:00)
[2017-03-14] MEDS: LACTULOSE SYRUP 20 GM/30 ML CUP PO SCH ×3 (00:14→21:00)
[2017-03-14] MEDS: POTASSIUM PHOSPHATE MONOBASIC 500 MG TAB PO SCH ×3 (00:14→21:00)
[2017-03-14] MEDS: HEPARIN SODIUM - SQ 10,000 UNITS/ML VIAL SQ SCH ×4 (00:14→22:32)
[2017-03-14 04:00] VITALS: BP 101/55; PULSE 79; RESP 18; TEMP 98.1; O2SAT 97
[2017-03-14] MEDS: CHLORHEXIDINE GLUCONATE 2 % 1 PACK (2 CLOTHS) TOP SCH (04:00)
[2017-03-14 05:27] LABS: HEMATOCRIT 27.6 % (39.0-51.0); MEAN CELL VOLUME 103.4 FL (80.0-100.0); MEAN CORPUSCULAR HEMOGLOBIN 34.7 PG (27.0-34.0); MEAN CORPUSCULAR HGB CONC 33.6 % (32.0-36.0); PLATELET COUNT 129 TH/MM3 (150-450); RED BLOOD COUNT 2.67 MIL/MM3 (4.50-5.90); RED CELL DISTRIBUTION WIDTH 13.8 % (11.6-17.2); REVIEW FLAG FINAL; WHITE BLOOD COUNT 4.7 TH/MM3 (4.0-11.0)
[2017-03-14] MEDS: INSULIN NovoLIN REGULAR SUPPLEMENTAL SCALE SQ SCH ×5 (06:00→21:00)
[2017-03-14 06:04] LABS: BICARBONATE 21.3 MEQ/L (21.0-32.0); POTASSIUM 3.4 MEQ/L (3.5-5.1)
[2017-03-14 08:00] VITALS: BP 101/61; PULSE 82; RESP 18; TEMP 98.5; O2SAT 96
[2017-03-14] MEDS: THIAMINE HCL 100 MG TAB PO SCH (08:23)
[2017-03-14] MEDS: MULTIVITAMIN TAB PO SCH (08:23)
--- NOTE | 2017-03-14 10:31 | HHI.PR ---
Subjective Remarks Follow-up life threatening multiple electrolyte abnormalities/hepatic and metabolic encephalopathy 03/12/17-patient seen and examined, alert and oriented 2, BP soft, afebrile. 03/13/17-patient seen and examined, stable, no acute event overnight. Afebrile. Alert and oriented 2 03/14/17-patient seen and examined; patient did fall yesterday however there was no LOC or head trauma Objective Vitals Vital Signs Date Time Temp Pulse Resp B/P Pulse Ox O2 Delivery O2 Flow Rate FiO2 03/14/17 08:00 98.5 82 18 101/61 96 03/14/17 04:00 98.1 79 18 101/55 97 03/14/17 00:00 98.4 84 18 106/63 98 03/13/17 20:00 97.6 82 18 102/61 96 03/13/17 20:00 82 03/13/17 16:30 98.0 70 20 110/68 03/13/17 15:30 97.3 71 18 109/70 03/13/17 12:00 98.1 79 18 94/58 97 I/O 03/13/17 03/13/17 03/13/17 03/14/17 03/14/17 03/14/17 07:00 15:00 23:00 07:00 15:00 23:00 Intake Total 100 ml 240 ml 0 ml 0 ml Output Total 800 ml 1200 ml 450 ml 250 ml Balance -700 ml -960 ml -450 ml -250 ml Intake Oral 100 ml 240 ml 0 ml 0 ml Output Urine Total 800 ml 1200 ml 450 ml 250 ml # Bowel Movements 1 1 0 0 Result Diagram: 03/14/17 0505 03/14/17 0505 Imaging Last Impressions Chest X-Ray 03/05/17 0000 Signed Impressions: Service Date/Time: Sunday, March 05, 2017 08:59 - CONCLUSION: 1. The tip of the feeding tube is in the gastric antrum. Mihir Harry MD Shoulder X-Ray 03/02/17 1404 Signed Impressions: Service Date/Time: Thursday, March 02, 2017 15:18 - CONCLUSION: No evidence of recent bony injury. Deformity of the lateral left clavicle suggests old healed trauma. Cheo Martínez MD Maxillofacial CT 03/02/17 1342 Signed Impressions: Service Date/Time: Thursday, March 02, 2017 14:52 - CONCLUSION: Negative CT of the facial bones. Cheo Martínez MD Head CT 03/02/17 1342 Signed Impressions: Service Date/Time: Thursday, March 02, 2017 14:52 - CONCLUSION: 1. Prominent scalp swelling left frontal and parietal region. No skull fracture seen. 2. Intracranial contents are intact without acute finding. Cheo Martínez MD Chest CT 03/02/17 1342 Signed Impressions: Service Date/Time: Thursday, March 02, 2017 15:04 - CONCLUSION: 1. Abnormal appearance of the lateral left clavicle suggesting a combination of acute and chronic bony injury. Fracture lucencies without bridging callus is seen the region of the coracoid process. 2. The lungs are clear. No evidence of pneumothorax. 3. Moderate size hiatus hernia. Cheo Martínez MD Cervical Spine CT 03/02/17 1342 Signed Impressions: Service Date/Time: Thursday, March 02, 2017 14:52 - CONCLUSION: Negative CT cervical spine. Cheo Martínez MD Abdomen/Pelvis CT 03/02/17 1342 Signed Impressions: Service Date/Time: Thursday, March 02, 2017 15:04 - CONCLUSION: Moderate size hiatus hernia. Scattered small sigmoid diverticula. Otherwise negative exam. Cheo Martínez MD Objective Remarks GENERAL: NAD SKIN: Warm and dry. Multiple skin excoriations HEAD: Normocephalic. EYES: No scleral icterus. No injection or drainage. NECK: Supple, trachea midline. No JVD or lymphadenopathy. CARDIOVASCULAR: Regular rate and rhythm without murmurs, gallops, or rubs. RESPIRATORY: Breath sounds equal bilaterally. No accessory muscle use. GASTROINTESTINAL: Abdomen soft, non-tender, nondistended. MUSCULOSKELETAL: No cyanosis, or edema. BACK: Nontender without obvious deformity. No CVA tenderness. A/P Problem List: (1) Hepatic encephalopathy ICD Code: K72.90 Status: Acute (2) Liver disease ICD Code: K76.9 Status: Acute (3) Hypokalemia ICD Code: E87.6 Status: Acute (4) Lactic acidosis ICD Code: E87.2 Status: Acute (5) Altered mental status ICD Code: R41.82 Status: Acute (6) Elevated troponin ICD Code: R74.8 Status: Acute (7) Hyponatremia ICD Code: E87.1 Status: Acute Assessment and Plan 61-year-old man with Metabolic Encephalopathy- resolving. Hepatic Encephalopathy- resolving. Alcohol withdrawal- resolving. Alcohol dependence -- Likely multifactorial, including possible Wernicke's, hyponatremia, hyperammonemia, Hepatic encephalopathy -- Continue iv thiamine, MVI -- Ativan to 0.5mg iv q3h prn for agitation -- Continue lactulose and monitor ammonia level Hypotension secondary to dehydration, vasoplegia-resolved Cardiogenic Shock-resolved Resolving distributive shock -- Elevated troponin likely from rhabdomyolysis. no symptoms of acute coronary syndrome. MB Ratio normal. -- 03/04 echo: global mod/severe LV dysfunction. Acute Kidney Injury- resolved Rhabdomyolysis- resolved -- Continue with Johns -- Strict I/Os Life-threatening Hyponatremia- resolved. Life-threatening Hypophosphatemia- resolved. Life-threatening Hypokalemia- resolved. Refeeding Syndrome End-stage liver disease Hyperammonemia Acute protein calorie malnutrition- severe Severe Dehydration- resolved -- daily bmp, lft, coags, mg, phos-electrolytes improved. -- aggressive K, Phos, Mg replacements. Coagulopathy secondary to end-stage liver disease Thrombocytopenia secondary to end-stage liver disease Anemia secondary to end-stage liver disease and poor nutrition No infectious etiology suspected this time Hyperglycemia of critical illness -- SSI, medium scale Fall: s/p Mechanical fall but no LOC or Head trauma. Fall precautions Prophylaxis: --GI Prophylaxis Protonix IV DVT Prophylaxis -- SCDs Subcutaneous heparin. Problem Qualifiers (1) Altered mental status: Qualified Code: R41.82 - Altered mental status, unspecified altered mental status type Logan Calderon MD Mar 14, 2017 10:30
[2017-03-14 12:00] VITALS: BP 102/64; PULSE 79; RESP 16; TEMP 98.9; O2SAT 99
[2017-03-14 16:00] VITALS: BP 103/69; PULSE 78; RESP 16; TEMP 98.2; O2SAT 97
[2017-03-14 20:00] VITALS: BP 108/69; PULSE 90; PULSE 91; RESP 20; TEMP 99; O2SAT 98
[2017-03-15] VITALS: BP 106/67; PULSE 87; RESP 18; TEMP 98.7; O2SAT 95
[2017-03-15] MEDS: CHLORHEXIDINE GLUCONATE 2 % 1 PACK (2 CLOTHS) TOP SCH (03:42)
[2017-03-15 04:00] VITALS: BP 93/57; PULSE 73; RESP 16; TEMP 98.3; O2SAT 96
[2017-03-15] MEDS: HEPARIN SODIUM - SQ 10,000 UNITS/ML VIAL SQ SCH ×3 (05:45→22:15)
[2017-03-15] MEDS: INSULIN NovoLIN REGULAR SUPPLEMENTAL SCALE SQ SCH ×4 (05:45→21:00)
[2017-03-15 06:32] LABS: BICARBONATE 21.9 MEQ/L (21.0-32.0); POTASSIUM 3.8 MEQ/L (3.5-5.1)
[2017-03-15 07:05] LABS: HEMATOCRIT 32.4 % (39.0-51.0); MEAN CELL VOLUME 104.4 FL (80.0-100.0); MEAN CORPUSCULAR HEMOGLOBIN 35.5 PG (27.0-34.0); PLATELET COUNT 165 TH/MM3 (150-450); RED CELL DISTRIBUTION WIDTH 14.5 % (11.6-17.2); REVIEW FLAG FINAL; WHITE BLOOD COUNT 4.6 TH/MM3 (4.0-11.0)
[2017-03-15 08:00] VITALS: BP 102/64; PULSE 84; RESP 18; TEMP 97; O2SAT 97
[2017-03-15] MEDS: MULTIVITAMIN TAB PO SCH (08:39)
[2017-03-15] MEDS: FAMOTIDINE 20 MG TAB NG SCH ×2 (08:39→22:14)
[2017-03-15] MEDS: THIAMINE HCL 100 MG TAB PO SCH (08:39)
[2017-03-15] MEDS: POTASSIUM PHOSPHATE MONOBASIC 500 MG TAB PO SCH ×2 (08:39→22:14)
[2017-03-15] MEDS: LACTULOSE SYRUP 20 GM/30 ML CUP PO SCH ×2 (08:39→22:15)
[2017-03-15] MEDS: DOCUSATE SODIUM 100 MG/10 ML UDC G-TUBE SCH ×2 (08:39→22:15)
[2017-03-15] MEDS: SODIUM CHLORIDE 0.9% FLUSH 10 ML FLUSH IV FLUSH SCH ×2 (08:40→22:15)
--- NOTE | 2017-03-15 11:48 | HHI.PR ---
Subjective Remarks Follow-up life threatening multiple electrolyte abnormalities/hepatic and metabolic encephalopathy 03/12/17-patient seen and examined, alert and oriented 2, BP soft, afebrile. 03/13/17-patient seen and examined, stable, no acute event overnight. Afebrile. Alert and oriented 2 03/14/17-patient seen and examined; patient did fall yesterday however there was no LOC or head trauma 03/15/17-patient seen and examined; he is alert and oriented x 2; crying spells this AM; states he is afraid of losing $[id number]. Vitals stable Objective Vitals Vital Signs Date Time Temp Pulse Resp B/P Pulse Ox O2 Delivery O2 Flow Rate FiO2 03/15/17 08:00 97.0 84 18 102/64 97 03/15/17 04:00 98.3 73 16 93/57 96 03/15/17 00:00 98.7 87 18 106/67 95 03/14/17 20:00 90 03/14/17 20:00 99.0 91 20 108/69 98 03/14/17 16:00 98.2 78 16 103/69 97 03/14/17 12:00 98.9 79 16 102/64 99 I/O 03/14/17 03/14/17 03/14/17 03/15/17 03/15/17 03/15/17 07:00 15:00 23:00 07:00 15:00 23:00 Intake Total 0 ml 600 ml 240 ml 0 ml Output Total 250 ml 950 ml 175 ml 225 ml Balance -250 ml -350 ml 65 ml -225 ml Intake Oral 0 ml 600 ml 240 ml 0 ml IV Total 0 ml Output Urine Total 250 ml 950 ml 175 ml 225 ml # Bowel Movements 0 1 1 0 Result Diagram: 03/15/17 0603/15/17 06 Objective Remarks GENERAL: NAD SKIN: Warm and dry. Multiple skin excoriations HEAD: Normocephalic. EYES: No scleral icterus. No injection or drainage. NECK: Supple, trachea midline. No JVD or lymphadenopathy. CARDIOVASCULAR: Regular rate and rhythm without murmurs, gallops, or rubs. RESPIRATORY: Breath sounds equal bilaterally. No accessory muscle use. GASTROINTESTINAL: Abdomen soft, non-tender, nondistended. MUSCULOSKELETAL: No cyanosis, or edema. BACK: Nontender without obvious deformity. No CVA tenderness. A/P Problem List: (1) Hepatic encephalopathy ICD Code: K72.90 Status: Resolved (2) Liver disease ICD Code: K76.9 Status: Chronic (3) Hypokalemia ICD Code: E87.6 Status: Resolved (4) Lactic acidosis ICD Code: E87.2 Status: Resolved (5) Altered mental status ICD Code: R41.82 Status: Resolved (6) Elevated troponin ICD Code: R74.8 Status: Resolved (7) Hyponatremia ICD Code: E87.1 Status: Resolved Assessment and Plan 61-year-old man with Metabolic Encephalopathy- resolving. Hepatic Encephalopathy- resolving. Alcohol withdrawal- resolving. Alcohol dependence -- Likely multifactorial, including possible Wernicke's, hyponatremia, hyperammonemia, Hepatic encephalopathy -- Continue iv thiamine, MVI -- Ativan to 0.5mg iv q3h prn for agitation -- Continue lactulose and monitor ammonia level Hypotension secondary to dehydration, vasoplegia-resolved Cardiogenic Shock-resolved Resolving distributive shock -- Elevated troponin likely from rhabdomyolysis. no symptoms of acute coronary syndrome. MB Ratio normal. -- 4/3 echo: global mod/severe LV dysfunction. Acute Kidney Injury- resolved Rhabdomyolysis- resolved -- Continue with Johns -- Strict I/Os Life-threatening Hyponatremia- resolved. Life-threatening Hypophosphatemia- resolved. Life-threatening Hypokalemia- resolved. Refeeding Syndrome End-stage liver disease Hyperammonemia Acute protein calorie malnutrition- severe Severe Dehydration- resolved -- daily bmp, lft, coags, mg, phos-electrolytes improved. Coagulopathy secondary to end-stage liver disease Thrombocytopenia secondary to end-stage liver disease Anemia secondary to end-stage liver disease and poor nutrition No infectious etiology suspected this time Hyperglycemia of critical illness -- SSI, medium scale Fall: s/p Mechanical fall but no LOC or Head trauma. Fall precautions Prophylaxis: --GI Prophylaxis Protonix IV DVT Prophylaxis -- SCDs Subcutaneous heparin. Discharge Planning Not medically stable for discharge Problem Qualifiers (1) Altered mental status: Qualified Code: R41.82 - Altered mental status, unspecified altered mental status type Logan Calderon MD Mar 15, 2017 11:48
[2017-03-15 12:00] VITALS: BP 97/73; PULSE 85; RESP 18; TEMP 97; O2SAT 93
[2017-03-15 20:00] VITALS: BP 103/62; PULSE 76; PULSE 80; RESP 16; TEMP 98.8; O2SAT 99
[2017-03-16 00:15] VITALS: BP 106/66; PULSE 93; RESP 20; TEMP 99; O2SAT 99
[2017-03-16 04:00] VITALS: BP 90/60; PULSE 75; RESP 20; TEMP 99.2; O2SAT 97
[2017-03-16] MEDS: CHLORHEXIDINE GLUCONATE 2 % 1 PACK (2 CLOTHS) TOP SCH (04:00)
[2017-03-16] MEDS: HEPARIN SODIUM - SQ 10,000 UNITS/ML VIAL SQ SCH ×3 (05:52→21:00)
[2017-03-16] MEDS: INSULIN NovoLIN REGULAR SUPPLEMENTAL SCALE SQ SCH ×4 (05:53→21:00)
[2017-03-16 06:12] LABS: HEMATOCRIT 30.2 % (39.0-51.0); MEAN CELL VOLUME 103.9 FL (80.0-100.0); MEAN CORPUSCULAR HEMOGLOBIN 34.7 PG (27.0-34.0); MEAN CORPUSCULAR HGB CONC 33.4 % (32.0-36.0); PLATELET COUNT 204 TH/MM3 (150-450); RED BLOOD COUNT 2.91 MIL/MM3 (4.50-5.90); RED CELL DISTRIBUTION WIDTH 14.3 % (11.6-17.2); REVIEW FLAG FINAL; WHITE BLOOD COUNT 5.8 TH/MM3 (4.0-11.0)
[2017-03-16 07:01] LABS: BICARBONATE 21.7 MEQ/L (21.0-32.0); POTASSIUM 3.8 MEQ/L (3.5-5.1)
[2017-03-16 08:14] VITALS: BP 102/63; PULSE 78; RESP 18; TEMP 98.3; O2SAT 94
[2017-03-16] MEDS: POTASSIUM PHOSPHATE MONOBASIC 500 MG TAB PO SCH ×2 (08:34→20:59)
[2017-03-16] MEDS: DOCUSATE SODIUM 100 MG/10 ML UDC G-TUBE SCH ×2 (08:34→21:00)
[2017-03-16] MEDS: LACTULOSE SYRUP 20 GM/30 ML CUP PO SCH ×2 (08:34→21:00)
[2017-03-16] MEDS: MULTIVITAMIN TAB PO SCH (08:34)
[2017-03-16] MEDS: THIAMINE HCL 100 MG TAB PO SCH (08:34)
[2017-03-16] MEDS: FAMOTIDINE 20 MG TAB NG SCH ×2 (08:34→20:58)
[2017-03-16] MEDS: SODIUM CHLORIDE 0.9% FLUSH 10 ML FLUSH IV FLUSH SCH ×2 (08:35→21:00)
--- NOTE | 2017-03-16 10:43 | HHI.PR ---
Subjective Remarks Follow-up life threatening multiple electrolyte abnormalities/hepatic and metabolic encephalopathy 03/12/17-patient seen and examined, alert and oriented 2, BP soft, afebrile. 03/13/17-patient seen and examined, stable, no acute event overnight. Afebrile. Alert and oriented 2 03/14/17-patient seen and examined; patient did fall yesterday however there was no LOC or head trauma 03/15/17-patient seen and examined; he is alert and oriented x 2; crying spells this AM; states he is afraid of losing $[id number]. Vitals stable 03/16/17-patient seen and examined, no acute event overnight. Afebrile. Objective Vitals Vital Signs Date Time Temp Pulse Resp B/P Pulse Ox O2 Delivery O2 Flow Rate FiO2 03/16/17 08:14 98.3 78 18 102/63 94 03/16/17 04:00 99.2 75 20 90/60 97 03/16/17 00:15 99.0 93 20 106/66 99 03/15/17 20:00 98.8 80 16 103/62 99 03/15/17 20:00 76 03/15/17 12:00 97.0 85 18 97/73 93 I/O 03/15/17 03/15/17 03/15/17 03/16/17 03/16/17 03/16/17 07:00 15:00 23:00 07:00 15:00 23:00 Intake Total 0 ml 120 ml 125 ml 60 ml Output Total 225 ml 300 ml 125 ml 225 ml Balance -225 ml -180 ml 0 ml -165 ml Intake Oral 0 ml 120 ml 125 ml 60 ml Output Urine Total 225 ml 300 ml 125 ml 225 ml # Bowel Movements 0 1 1 Result Diagram: 03/16/17 0550 03/16/17 0550 Objective Remarks GENERAL: NAD SKIN: Warm and dry. Multiple skin excoriations HEAD: Normocephalic. EYES: No scleral icterus. No injection or drainage. NECK: Supple, trachea midline. No JVD or lymphadenopathy. CARDIOVASCULAR: Regular rate and rhythm without murmurs, gallops, or rubs. RESPIRATORY: Breath sounds equal bilaterally. No accessory muscle use. GASTROINTESTINAL: Abdomen soft, non-tender, nondistended. MUSCULOSKELETAL: No cyanosis, or edema. BACK: Nontender without obvious deformity. No CVA tenderness. A/P Problem List: (1) Hepatic encephalopathy ICD Code: K72.90 Status: Resolved (2) Liver disease ICD Code: K76.9 Status: Chronic (3) Hypokalemia ICD Code: E87.6 Status: Resolved (4) Lactic acidosis ICD Code: E87.2 Status: Resolved (5) Altered mental status ICD Code: R41.82 Status: Resolved (6) Elevated troponin ICD Code: R74.8 Status: Resolved (7) Hyponatremia ICD Code: E87.1 Status: Resolved Assessment and Plan 61-year-old man with Metabolic Encephalopathy- resolved. Hepatic Encephalopathy- resolved. Alcohol withdrawal- resolving. Alcohol dependence -- Likely multifactorial, including possible Wernicke's, hyponatremia, hyperammonemia, Hepatic encephalopathy -- Continue iv thiamine, MVI -- Ativan to 0.5mg iv q3h prn for agitation -- Continue lactulose and monitor ammonia level Hypotension secondary to dehydration, vasoplegia-resolved Cardiogenic Shock-resolved Resolving distributive shock -- Elevated troponin likely from rhabdomyolysis. no symptoms of acute coronary syndrome. MB Ratio normal. -- 4/3 echo: global mod/severe LV dysfunction. Acute Kidney Injury- resolved Rhabdomyolysis- resolved -- Continue with Johns -- Strict I/Os Life-threatening Hyponatremia- resolved. Life-threatening Hypophosphatemia- resolved. Life-threatening Hypokalemia- resolved. Refeeding Syndrome End-stage liver disease Hyperammonemia Acute protein calorie malnutrition- severe Severe Dehydration- resolved -- daily bmp, lft, coags, mg, phos-electrolytes improved. Coagulopathy secondary to end-stage liver disease Thrombocytopenia secondary to end-stage liver disease Anemia secondary to end-stage liver disease and poor nutrition No infectious etiology suspected this time Hyperglycemia of critical illness -- SSI, medium scale Fall: s/p Mechanical fall but no LOC or Head trauma. Fall precautions Prophylaxis: --GI Prophylaxis Protonix IV DVT Prophylaxis -- SCDs Subcutaneous heparin. Discharge Planning Likely discharged to [facility] 03/18/17 and medically stable Problem Qualifiers (1) Altered mental status: Qualified Code: R41.82 - Altered mental status, unspecified altered mental status type Logan Calderon MD Mar 16, 2017 10:43
[2017-03-16 12:01] VITALS: BP 93/64; PULSE 82; RESP 18; TEMP 97.9; O2SAT 95
[2017-03-16 16:12] VITALS: BP 98/61; PULSE 82; RESP 19; TEMP 98.4; O2SAT 94
[2017-03-16 20:00] VITALS: BP 106/67; PULSE 94; RESP 18; TEMP 98; O2SAT 95
[2017-03-17] VITALS (9 sets, daily range): BP systolic 101–122; BP diastolic 62–80; PULSE 85–120; RESP 18–20; TEMP 97.3–99.1; O2SAT 95–98
[2017-03-17] MEDS: CHLORHEXIDINE GLUCONATE 2 % 1 PACK (2 CLOTHS) TOP SCH (03:53)
[2017-03-17] MEDS: HEPARIN SODIUM - SQ 10,000 UNITS/ML VIAL SQ SCH ×3 (05:10→20:42)
[2017-03-17 05:30] LABS: HEMATOCRIT 31.2 % (39.0-51.0); MEAN CELL VOLUME 103.9 FL (80.0-100.0); MEAN CORPUSCULAR HGB CONC 33.6 % (32.0-36.0); PLATELET COUNT 221 TH/MM3 (150-450); RED CELL DISTRIBUTION WIDTH 14.1 % (11.6-17.2); REVIEW FLAG FINAL; WHITE BLOOD COUNT 6.2 TH/MM3 (4.0-11.0)
[2017-03-17 05:59] LABS: BICARBONATE 22.9 MEQ/L (21.0-32.0); POTASSIUM 3.2 MEQ/L (3.5-5.1)
[2017-03-17] MEDS: INSULIN NovoLIN REGULAR SUPPLEMENTAL SCALE SQ SCH ×4 (06:05→20:42)
[2017-03-17] MEDS: DOCUSATE SODIUM 100 MG/10 ML UDC G-TUBE SCH ×2 (09:00→20:40)
--- NOTE | 2017-03-17 09:31 | HHI.PR ---
Subjective Remarks Follow-up life threatening multiple electrolyte abnormalities/hepatic and metabolic encephalopathy 03/12/17-patient seen and examined, alert and oriented 2, BP soft, afebrile. 03/13/17-patient seen and examined, stable, no acute event overnight. Afebrile. Alert and oriented 2 03/14/17-patient seen and examined; patient did fall yesterday however there was no LOC or head trauma 03/15/17-patient seen and examined; he is alert and oriented x 2; crying spells this AM; states he is afraid of losing $[id number]. Vitals stable 03/16/17-patient seen and examined, no acute event overnight. Afebrile. 03/17/17-patient seen and examined, alert and oriented 2. Afebrile. No acute event overnight. Objective Vitals Vital Signs Date Time Temp Pulse Resp B/P Pulse Ox O2 Delivery O2 Flow Rate FiO2 03/17/17 04:00 98.1 86 20 111/67 96 03/17/17 03:52 94 03/17/17 00:00 97.8 85 20 105/62 97 03/16/17 20:00 98.0 94 18 106/67 95 03/16/17 16:12 98.4 82 19 98/61 94 03/16/17 12:01 97.9 82 18 93/64 95 I/O 03/16/17 03/16/17 03/16/17 03/17/17 03/17/17 03/17/17 07:00 15:00 23:00 07:00 15:00 23:00 Intake Total 60 ml 240 ml 120 ml Output Total 225 ml 150 ml 100 ml Balance -165 ml 90 ml 20 ml Intake Oral 60 ml 240 ml 120 ml Output Urine Total 225 ml 150 ml 100 ml # Bowel Movements 1 1 Result Diagram: 03/17/17 0458 03/17/17 0458 Objective Remarks GENERAL: NAD SKIN: Warm and dry. Multiple skin excoriations HEAD: Normocephalic. EYES: No scleral icterus. No injection or drainage. NECK: Supple, trachea midline. No JVD or lymphadenopathy. CARDIOVASCULAR: Regular rate and rhythm without murmurs, gallops, or rubs. RESPIRATORY: Breath sounds equal bilaterally. No accessory muscle use. GASTROINTESTINAL: Abdomen soft, non-tender, nondistended. MUSCULOSKELETAL: No cyanosis, or edema. BACK: Nontender without obvious deformity. No CVA tenderness. A/P Problem List: (1) Hepatic encephalopathy ICD Code: K72.90 Status: Resolved (2) Liver disease ICD Code: K76.9 Status: Chronic (3) Hypokalemia ICD Code: E87.6 Status: Resolved (4) Lactic acidosis ICD Code: E87.2 Status: Resolved (5) Altered mental status ICD Code: R41.82 Status: Resolved (6) Elevated troponin ICD Code: R74.8 Status: Resolved (7) Hyponatremia ICD Code: E87.1 Status: Resolved Assessment and Plan 61-year-old man with Metabolic Encephalopathy- resolved. Hepatic Encephalopathy- resolved. Alcohol withdrawal- resolving. Alcohol dependence -- Likely multifactorial, including possible Wernicke's, hyponatremia, hyperammonemia, Hepatic encephalopathy -- Continue iv thiamine, MVI -- Ativan to 0.5mg iv q3h prn for agitation -- Continue lactulose and monitor ammonia level Hypotension secondary to dehydration, vasoplegia-resolved Cardiogenic Shock-resolved Resolving distributive shock -- Elevated troponin likely from rhabdomyolysis. no symptoms of acute coronary syndrome. -- 4/3 echo: global mod/severe LV dysfunction. Acute Kidney Injury- resolved Rhabdomyolysis- resolved -- Continue with Johns -- Strict I/Os Life-threatening Hyponatremia- resolved. Life-threatening Hypophosphatemia- resolved. Life-threatening Hypokalemia- resolved. Refeeding Syndrome End-stage liver disease Hyperammonemia Acute protein calorie malnutrition- severe Severe Dehydration- resolved -- daily bmp, lft, coags, mg, phos-electrolytes improved. Coagulopathy secondary to end-stage liver disease Thrombocytopenia secondary to end-stage liver disease Anemia secondary to end-stage liver disease and poor nutrition No infectious etiology suspected this time Hyperglycemia of critical illness -- SSI, medium scale Fall: s/p Mechanical fall but no LOC or Head trauma. Fall precautions Prophylaxis: --GI Prophylaxis Protonix IV DVT Prophylaxis -- SCDs Subcutaneous heparin. Continue current treatment as of 03/17/17 Discharge Planning Likely discharged to [facility] 03/18/17 and medically stable Problem Qualifiers (1) Altered mental status: Qualified Code: R41.82 - Altered mental status, unspecified altered mental status type Logan Calderon MD Mar 17, 2017 09:31
[2017-03-17] MEDS: THIAMINE HCL 100 MG TAB PO SCH (09:43)
[2017-03-17] MEDS: MULTIVITAMIN TAB PO SCH (09:43)
[2017-03-17] MEDS: LACTULOSE SYRUP 20 GM/30 ML CUP PO SCH ×2 (09:44→20:40)
[2017-03-17] MEDS: POTASSIUM PHOSPHATE MONOBASIC 500 MG TAB PO SCH ×2 (09:44→20:40)
[2017-03-17] MEDS: FAMOTIDINE 20 MG TAB NG SCH ×2 (09:44→20:40)
[2017-03-17] MEDS ORDERED: POTASSIUM CHLORIDE 10 MEQ CONTROLLED RELEASE TAB PO ONE (09:45)
[2017-03-17] MEDS: SODIUM CHLORIDE 0.9% FLUSH 10 ML FLUSH IV FLUSH SCH ×2 (10:42→20:41)
[2017-03-17] MEDS: LORazepam 2 MG/ML VIAL IV PUSH PRN (23:37)
[2017-03-18] MEDS: CHLORHEXIDINE GLUCONATE 2 % 1 PACK (2 CLOTHS) TOP SCH (03:01)
[2017-03-18 03:35] VITALS: BP 96/60; PULSE 87; RESP 16; TEMP 98.2; O2SAT 97
[2017-03-18] MEDS: INSULIN NovoLIN REGULAR SUPPLEMENTAL SCALE SQ SCH ×4 (05:33→21:00)
[2017-03-18] MEDS: HEPARIN SODIUM - SQ 10,000 UNITS/ML VIAL SQ SCH ×3 (05:33→23:02)
[2017-03-18 05:41] LABS: MEAN CELL VOLUME 101.9 FL (80.0-100.0); MEAN CORPUSCULAR HEMOGLOBIN 35.3 PG (27.0-34.0); MEAN CORPUSCULAR HGB CONC 34.7 % (32.0-36.0); PLATELET COUNT 268 TH/MM3 (150-450); RED BLOOD COUNT 2.85 MIL/MM3 (4.50-5.90); RED CELL DISTRIBUTION WIDTH 13.9 % (11.6-17.2); REVIEW FLAG FINAL; WHITE BLOOD COUNT 6.4 TH/MM3 (4.0-11.0)
[2017-03-18 05:53] LABS: BICARBONATE 22.2 MEQ/L (21.0-32.0); POTASSIUM 3.8 MEQ/L (3.5-5.1)
[2017-03-18 08:00] VITALS: BP 103/60; PULSE 95; PULSE 98; RESP 18; TEMP 98.1; O2SAT 95
[2017-03-18] MEDS: SODIUM CHLORIDE 0.9% FLUSH 10 ML FLUSH IV FLUSH SCH ×2 (09:00→23:00)
[2017-03-18] MEDS: DOCUSATE SODIUM 100 MG/10 ML UDC G-TUBE SCH ×2 (09:20→23:00)
[2017-03-18] MEDS: LACTULOSE SYRUP 20 GM/30 ML CUP PO SCH ×2 (09:20→23:01)
[2017-03-18] MEDS: THIAMINE HCL 100 MG TAB PO SCH (09:21)
[2017-03-18] MEDS: POTASSIUM PHOSPHATE MONOBASIC 500 MG TAB PO SCH ×2 (09:21→23:00)
[2017-03-18] MEDS: FAMOTIDINE 20 MG TAB NG SCH ×2 (09:21→23:01)
[2017-03-18] MEDS: MULTIVITAMIN TAB PO SCH (09:21)
--- NOTE | 2017-03-18 10:09 | HHI.PR ---
Subjective Remarks Follow-up life threatening multiple electrolyte abnormalities/hepatic and metabolic encephalopathy 03/12/17-patient seen and examined, alert and oriented 2, BP soft, afebrile. 03/13/17-patient seen and examined, stable, no acute event overnight. Afebrile. Alert and oriented 2 03/14/17-patient seen and examined; patient did fall yesterday however there was no LOC or head trauma 03/15/17-patient seen and examined; he is alert and oriented x 2; crying spells this AM; states he is afraid of losing $[id number]. Vitals stable 03/16/17-patient seen and examined, no acute event overnight. Afebrile. 03/17/17-patient seen and examined, alert and oriented 2. Afebrile. No acute event overnight. 03/18/17-patient seen and examined, no change and stable.He Was being fed by [employer] Objective Vitals Vital Signs Date Time Temp Pulse Resp B/P Pulse Ox O2 Delivery O2 Flow Rate FiO2 03/18/17 08:00 98.1 95 18 103/60 95 03/18/17 03:35 98.2 87 16 96/60 97 03/17/17 23:22 97.3 120 18 121/73 98 03/17/17 20:46 109 03/17/17 19:48 98.5 111 18 110/74 95 03/17/17 16:00 98.0 107 20 101/80 96 03/17/17 12:00 98.4 94 20 105/68 96 I/O 03/17/17 03/17/17 03/17/17 03/18/17 03/18/17 03/18/17 07:00 15:00 23:00 07:00 15:00 23:00 Intake Total 300 ml 30 ml 0 ml Output Total 350 ml 100 ml 150 ml Balance -50 ml -70 ml -150 ml Intake Oral 300 ml 30 ml 0 ml Output Urine Total 350 ml 100 ml 150 ml # Bowel Movements 2 1 0 Result Diagram: 03/18/1751103/18/17511 Objective Remarks GENERAL: NAD SKIN: Warm and dry. HEAD: Normocephalic. EYES: No scleral icterus. No injection or drainage. NECK: Supple, trachea midline. No JVD or lymphadenopathy. CARDIOVASCULAR: Regular rate and rhythm without murmurs, gallops, or rubs. RESPIRATORY: Breath sounds equal bilaterally. No accessory muscle use. GASTROINTESTINAL: Abdomen soft, non-tender, nondistended. MUSCULOSKELETAL: No cyanosis, or edema. BACK: Nontender without obvious deformity. No CVA tenderness. A/P Problem List: (1) Hepatic encephalopathy ICD Code: K72.90 Status: Resolved (2) Liver disease ICD Code: K76.9 Status: Chronic (3) Hypokalemia ICD Code: E87.6 Status: Resolved (4) Lactic acidosis ICD Code: E87.2 Status: Resolved (5) Altered mental status ICD Code: R41.82 Status: Resolved (6) Elevated troponin ICD Code: R74.8 Status: Resolved (7) Hyponatremia ICD Code: E87.1 Status: Resolved Assessment and Plan 61-year-old man with Metabolic Encephalopathy- resolved. Hepatic Encephalopathy- resolved. Alcohol withdrawal- resolving. Alcohol dependence -- Likely multifactorial, including possible Wernicke's, hyponatremia, hyperammonemia, Hepatic encephalopathy -- Continue iv thiamine, MVI -- Ativan to 0.5mg iv q3h prn for agitation -- Continue lactulose and ammonia level 64 Hypotension secondary to dehydration, vasoplegia-resolved Cardiogenic Shock-resolved Resolving distributive shock -- Elevated troponin likely from rhabdomyolysis. no symptoms of acute coronary syndrome. -- 4/ echo: global mod/severe LV dysfunction. Acute Kidney Injury- resolved Rhabdomyolysis- resolved -- Continue with Johns -- Strict I/Os Life-threatening Hyponatremia- resolved. Life-threatening Hypophosphatemia- resolved. Life-threatening Hypokalemia- resolved. Refeeding Syndrome End-stage liver disease Hyperammonemia Acute protein calorie malnutrition- severe Severe Dehydration- resolved -- daily bmp, lft, coags, mg, phos-electrolytes improved. Coagulopathy secondary to end-stage liver disease Thrombocytopenia secondary to end-stage liver disease Anemia secondary to end-stage liver disease and poor nutrition No infectious etiology suspected this time Hyperglycemia of critical illness -- SSI, medium scale Fall: s/p Mechanical fall but no LOC or Head trauma. Fall precautions Prophylaxis: --GI Prophylaxis Protonix IV DVT Prophylaxis -- SCDs Subcutaneous heparin. Continue current treatment as of 03/18/17 Discharge Planning Likely discharged to SNF when medically stable Problem Qualifiers (1) Altered mental status: Qualified Code: R41.82 - Altered mental status, unspecified altered mental status type Logan Calderon MD Mar 18, 2017 10:08
[2017-03-18 12:00] VITALS: BP 108/73; PULSE 93; RESP 18; TEMP 98.2; O2SAT 93
[2017-03-18 16:00] VITALS: BP 100/68; PULSE 91; RESP 18; TEMP 98.7; O2SAT 100
[2017-03-18 20:00] VITALS: BP 99/65; PULSE 97; RESP 20; TEMP 99.1; O2SAT 96
[2017-03-19] VITALS: BP 106/69; PULSE 104; RESP 18; TEMP 99.9; O2SAT 96
[2017-03-19 04:00] VITALS: BP 100/67; PULSE 99; RESP 18; TEMP 98; O2SAT 95
[2017-03-19] MEDS: CHLORHEXIDINE GLUCONATE 2 % 1 PACK (2 CLOTHS) TOP SCH ×2 (04:00→23:36)
[2017-03-19] MEDS: HEPARIN SODIUM - SQ 10,000 UNITS/ML VIAL SQ SCH ×3 (06:03→23:33)
[2017-03-19] MEDS: INSULIN NovoLIN REGULAR SUPPLEMENTAL SCALE SQ SCH ×4 (06:03→21:00)
[2017-03-19 06:50] LABS: HEMATOCRIT 31.1 % (39.0-51.0); MEAN CELL VOLUME 102.6 FL (80.0-100.0); MEAN CORPUSCULAR HEMOGLOBIN 35.7 PG (27.0-34.0); MEAN CORPUSCULAR HGB CONC 34.8 % (32.0-36.0); PLATELET COUNT 281 TH/MM3 (150-450); RED BLOOD COUNT 3.03 MIL/MM3 (4.50-5.90); REVIEW FLAG FINAL; WHITE BLOOD COUNT 8.7 TH/MM3 (4.0-11.0)
[2017-03-19 07:31] LABS: BICARBONATE 24.2 MEQ/L (21.0-32.0); POTASSIUM 3.7 MEQ/L (3.5-5.1)
[2017-03-19 08:00] VITALS: BP 106/65; PULSE 101; PULSE 98; RESP 18; TEMP 99.1; O2SAT 95
[2017-03-19] MEDS: LACTULOSE SYRUP 20 GM/30 ML CUP PO SCH ×2 (08:47→21:00)
[2017-03-19] MEDS: DOCUSATE SODIUM 100 MG/10 ML UDC G-TUBE SCH ×2 (08:47→21:00)
[2017-03-19] MEDS: THIAMINE HCL 100 MG TAB PO SCH (08:48)
[2017-03-19] MEDS: POTASSIUM PHOSPHATE MONOBASIC 500 MG TAB PO SCH ×2 (08:48→21:00)
[2017-03-19] MEDS: FAMOTIDINE 20 MG TAB NG SCH ×2 (08:49→21:00)
[2017-03-19] MEDS: MULTIVITAMIN TAB PO SCH (08:49)
[2017-03-19] MEDS: SODIUM CHLORIDE 0.9% FLUSH 10 ML FLUSH IV FLUSH SCH ×2 (09:00→23:32)
--- NOTE | 2017-03-19 10:51 | HHI.PR ---
Subjective Remarks Follow-up life threatening multiple electrolyte abnormalities/hepatic and metabolic encephalopathy 03/12/17-patient seen and examined, alert and oriented 2, BP soft, afebrile. 03/13/17-patient seen and examined, stable, no acute event overnight. Afebrile. Alert and oriented 2 03/14/17-patient seen and examined; patient did fall yesterday however there was no LOC or head trauma 03/15/17-patient seen and examined; he is alert and oriented x 2; crying spells this AM; states he is afraid of losing $[id number]. Vitals stable 03/16/17-patient seen and examined, no acute event overnight. Afebrile. 03/17/17-patient seen and examined, alert and oriented 2. Afebrile. No acute event overnight. 03/18/17-patient seen and examined, no change and stable.He Was being fed by [employer] 03/19/17-patient seen and examined, afebrile, no complaint, Objective Vitals Vital Signs Date Time Temp Pulse Resp B/P Pulse Ox O2 Delivery O2 Flow Rate FiO2 03/19/17 08:00 99.1 98 18 106/65 95 03/19/17 04:00 98.0 99 18 100/67 95 03/19/17 00:00 99.9 104 18 106/69 96 03/18/17 20:00 97 03/18/17 20:00 99.1 97 20 99/65 96 03/18/17 16:00 98.7 91 18 100/68 100 03/18/17 12:00 98.2 93 18 108/73 93 I/O 03/18/17 03/18/17 03/18/17 03/19/17 03/19/17 03/19/17 07:00 15:00 23:00 07:00 15:00 23:00 Intake Total 0 ml 240 ml 0 ml 0 ml Output Total 150 ml 800 ml 100 ml 100 ml Balance -150 ml -560 ml -100 ml -100 ml Intake Oral 0 ml 240 ml 0 ml 0 ml IV Total 0 ml Output Urine Total 150 ml 800 ml 100 ml 100 ml # Bowel Movements 0 1 0 0 Result Diagram: 03/19/1761903/19/17619 Objective Remarks GENERAL: NAD SKIN: Warm and dry. HEAD: Normocephalic. EYES: No scleral icterus. No injection or drainage. NECK: Supple, trachea midline. No JVD or lymphadenopathy. CARDIOVASCULAR: Regular rate and rhythm without murmurs, gallops, or rubs. RESPIRATORY: Breath sounds equal bilaterally. No accessory muscle use. GASTROINTESTINAL: Abdomen soft, non-tender, nondistended. MUSCULOSKELETAL: No cyanosis, or edema. BACK: Nontender without obvious deformity. No CVA tenderness. A/P Problem List: (1) Hepatic encephalopathy ICD Code: K72.90 Status: Resolved (2) Liver disease ICD Code: K76.9 Status: Chronic (3) Hypokalemia ICD Code: E87.6 Status: Resolved (4) Lactic acidosis ICD Code: E87.2 Status: Resolved (5) Altered mental status ICD Code: R41.82 Status: Resolved (6) Elevated troponin ICD Code: R74.8 Status: Resolved (7) Hyponatremia ICD Code: E87.1 Status: Resolved Assessment and Plan 61-year-old man with Metabolic Encephalopathy- resolved. Hepatic Encephalopathy- resolved. Alcohol withdrawal- resolving. Alcohol dependence -- Likely multifactorial, including possible Wernicke's, hyponatremia, hyperammonemia, Hepatic encephalopathy -- Continue iv thiamine, MVI -- Ativan to 0.5mg iv q3h prn for agitation -- Continue lactulose and ammonia level 64 Hypotension secondary to dehydration, vasoplegia-resolved Cardiogenic Shock-resolved Resolving distributive shock -- Elevated troponin likely from rhabdomyolysis. no symptoms of acute coronary syndrome. -- / echo: global mod/severe LV dysfunction. Acute Kidney Injury- resolved Rhabdomyolysis- resolved -- Continue with Johns -- Strict I/Os Life-threatening Hyponatremia- resolved. Life-threatening Hypophosphatemia- resolved. Life-threatening Hypokalemia- resolved. Refeeding Syndrome End-stage liver disease Hyperammonemia Acute protein calorie malnutrition- severe Severe Dehydration- resolved -- daily bmp, lft, coags, mg, phos-electrolytes improved. Coagulopathy secondary to end-stage liver disease Thrombocytopenia secondary to end-stage liver disease Anemia secondary to end-stage liver disease and poor nutrition No infectious etiology suspected this time Hyperglycemia of critical illness -- SSI, medium scale Fall: s/p Mechanical fall but no LOC or Head trauma. Fall precautions Prophylaxis: --GI Prophylaxis Protonix IV DVT Prophylaxis -- SCDs Subcutaneous heparin. Continue current treatment as of 03/19/17 Discharge Planning Likely discharged to SNF when medically stable Problem Qualifiers (1) Altered mental status: Qualified Code: R41.82 - Altered mental status, unspecified altered mental status type Logan Calderon MD Mar 19, 2017 10:51
[2017-03-19 12:00] VITALS: BP 118/70; PULSE 95; RESP 18; TEMP 100.2; O2SAT 95
[2017-03-19 16:00] VITALS: BP 112/73; PULSE 99; RESP 18; TEMP 100; O2SAT 98
[2017-03-19 20:00] VITALS: BP 115/78; PULSE 99; RESP 18; TEMP 97.7; O2SAT 98
[2017-03-20] VITALS (12 sets, daily range): BP systolic 103–133; BP diastolic 65–87; PULSE 87–120; RESP 18–22; TEMP 98.2–99.9; O2SAT 82–99
[2017-03-20] MEDS: HEPARIN SODIUM - SQ 10,000 UNITS/ML VIAL SQ SCH ×3 (05:42→21:49)
[2017-03-20] MEDS ORDERED: RESP: IPRATROPIUM 0.5 MG/2.5 ML NEB NEB ONE (06:15)
[2017-03-20] MEDS ORDERED: FUROSEMIDE 40 MG/4 ML VIAL IV PUSH ONE (06:15)
[2017-03-20] MEDS ORDERED: methylPREDNISolone SOD SUCC 125 MG/2 ML VIAL IV PUSH ONE (06:15)
[2017-03-20 06:28] LABS: BLOOD GAS BASE EXCESS -1.4 mmol/L (-2-2); BLOOD GAS HCO3 23 mmol/L (22-26); BLOOD GAS METHEMOGLOBIN 0.5 % (0-2); BLOOD GAS O2 HGB SATURATION 96 % (90-100); BLOOD GAS OXYGEN CONTENT 15.5 Vol % (12.0-20.0); BLOOD GAS PCO2 39 mmHg (38-42); BLOOD GAS PO2 113 mmHg (61-120); BLOOD GAS TOTAL HGB 11.4 G/DL (12.0-16.0); CRITICAL VALUE NO; DRAW SITE RT BRACHIAL; FIO2 50 %; NUMBER OF ARTERIAL PUNCTURES 1; OXYGEN DEVICE Venti Mask; STAT YES; TEMP CORR TO 98.6; ULNAR PULSE PRESENT
--- NOTE | 2017-03-20 06:34 | HHI.PR ---
Addendum to Inpatient Note Addendum Reason: Additional Documentation Additional Information S: Resident team received call regarding [facility] for hypoxemia and altered mental status at 5:57 AM. Resident team arrived at patient's room at 6:03 AM to find nursing staff on the phone with primary Dr. Dewey. Apparently, patient was breathing and mentating at baseline while receiving oral care. Then patient was noted to have altered mental status and pulse ox in the 80s. [facility] was then called at 5:45 AM. Patient had Venturi mask placed and oxygen saturations eddie to 90s. Patient was unable to answer questions. Primary Dr. Dewey arrived to the room shortly after resident team, and she assumed care. O: Vital Signs: Date Time Temp Pulse Resp B/P Pulse Ox O2 Delivery O2 Flow Rate FiO2 03/20/17 04:00 99.9 109 18 103/65 93 Vitals: Pulse oximetry in 80s eddie to pulse ox in the 90s with Venturi mask. Gen.: Patient with audible inspiratory rhonchi, not responding to questions, in respiratory distress with Venturi mask in place HEENT: Pupils equal round and reactive to light. Extraocular movements intact. Cardiovascular: Tachycardic rate and regular rhythm Respiratory: Transmitted upper airway sounds, inspiratory rhonchi localized to the neck. Otherwise no wheezing or rales appreciated. Extremities: 2+ radial pulses, nontender calves A/P: Pt is a 61y male who presented with severe life-threatening hyponatremia, dehydration, rhabdomyolysis, acute kidney injury, metabolic encephalopathy, end- stage liver disease with MELD 26 who had a H[facility]CAT called for hypoxia and altered mental status. Breathing treatments Solu-Medrol 125 mg IV push 1 Lasix 40 mg IV push 1 Chest x-ray Consider EKG, ABG Lactic acid Coags CBC, CMP Transfer to intensive care unit and consult data entry coordinator Patient seen and discussed with Dr. Pat Villa,Justino Funes MD R1 Mar 20, 2017 06:34
[2017-03-20 06:42] LABS: AUTOMATED NEUTROPHIL # 8.4 TH/MM3 (1.8-7.7); BASOPHIL # 0.1 TH/MM3 (0-0.2); BASOPHIL % 0.6 % (0.0-2.0); EOSINOPHIL # 0.1 TH/MM3 (0-0.4); EOSINOPHIL % 0.5 % (0.0-4.0); HEMATOCRIT 33.1 % (39.0-51.0); HEMO FLAGS DIFF FINAL; LYMPHOCYTE # 2.1 TH/MM3 (1.0-4.8); MEAN CELL VOLUME 103.3 FL (80.0-100.0); MEAN CORPUSCULAR HEMOGLOBIN 35.3 PG (27.0-34.0); MEAN CORPUSCULAR HGB CONC 34.2 % (32.0-36.0); MONO % 8.1 % (0.0-8.0); NEUT % 72.8 % (16.0-70.0); PLATELET COUNT 329 TH/MM3 (150-450); RED BLOOD COUNT 3.21 MIL/MM3 (4.50-5.90); RED CELL DISTRIBUTION WIDTH 14.6 % (11.6-17.2); WHITE BLOOD COUNT 11.5 TH/MM3 (4.0-11.0)
[2017-03-20 06:49] LABS: APTT (PATIENT) 29.7 SEC (24.3-30.1)
[2017-03-20 07:04] LABS: ALT (GPT) 101 U/L (12-78); ANION GAP 9 MEQ/L (5-15); AST (GOT) 144 U/L (15-37); BICARBONATE 25.5 MEQ/L (21.0-32.0); BLOOD UREA NITROGEN 24 MG/DL (7-18); CHLORIDE 111 MEQ/L (98-107); GLOMERULAR FILTRATION RATE 126 ML/MIN (>89); POTASSIUM 4.1 MEQ/L (3.5-5.1); SODIUM (NA) 145 MEQ/L (136-145)
[2017-03-20 07:06] LABS: ALKALINE PHOSPHATASE 188 U/L (45-117); TOTAL BILIRUBIN ADULT 4.3 MG/DL (0.2-1.0)
--- NOTE | 2017-03-20 07:08 | HHI.CCPN ---
Subjective Remarks/Hospital Course This is a 61-year-old male with a past history of alcohol abuse and a prior admission in 2015 for severe life-threatening hyponatremia at that time with a serum sodium of 98. He presents today with what he states is a 13 day history of worsening fatigue and weakness. He is very altered and is very difficult to understand the patient. What I can understand from him, is that at some point during these 13 days he has fallen and hit his face. Otherwise he states he lays on the couch, and has not gotten not much. He states he drinks 1 beer in the morning, and 1 beer in the afternoon. He does endorse taking some Xanax to help him sleep. He denies other drug use. He denies chest pain, shortness of breath, fever, chills, nausea, vomiting, abdominal pain. It is very difficult to get him to answer anymore questions about his medical history. His speech is very slurred and he is trying to talk about how he misses his daughter. Emergency department he was found to have a serum sodium of 99, a bilirubin of 8.9, lactate of 9.8, ammonia of 60, CK of 7000, elevated troponin of 4.9 with a normal MB ratio, creatinine 1.5, serum bicarbonate of 13. His white count is 12 , platelets 112. INR 1.9. His MELD calculates at 26. 4/2: Sodium level rapidly corrected overnight, likely secondary to appropriate correction of severe life-threatening dehydration. NS fluids changed to 1/2NS and correction slowed down significantly. sodium up to 130 this AM. CK downtrending. however, patient remains severely hypotensive requiring Levophed to maintain a map > 65 mmHg. This AM, serum K 1.6 (confirmed). started replacement with 200meq KCl and recheck K. 03/04: persists in vasoplegic distributive shock. afebrile. no evidence of infection. wbc downtrending. persists with severe life-threatening electrolyte derangements. passed swallow eval for nectar thick liquids. sodium stable at 131. ck downtrending. 03/05: persists in distributive shock. echo yesterday with EF 30%, globally decreased function. milrinone added yesterday with improvement in vasopressor requirement. still with multiple electrolyte abnormalities despite very aggressive replacement. very poor appetite. sodium stable at 131, which appears to be around baseline for him, looking back at prior records. also became agitated and delirious yesterday, likely secondary to etoh withdraw. started on Ativan and Librium. 03/06: electrolyte derangements persist. placed on continuous NaPhos infusion x 24h due to severe life-threatening hypophosphatemia. serial K, phos checks. weaning off levophed, milrinone persists. still poor appetite. sodium jumped from 132 to 139, but no significant mental status change, and we did not increase sodium load. 03/07: still requiring high electrolyte replacement. milrinone weaned to 0.375 mcg /kg/min overnight. still doing well with that. delirium persists. 03/08 Remains on milrinone. Electrolyte improving. Remains very lethargic, intermittently follows commands 03/09: Continues to be lethargic but wakes up follows some commands. Remains on milrinone will DC today. T max 100.1, urine output adequate sodium is 143 03/10: More awake alert, ate 50% of break fast. Will DC Dobhoff. Discontinue arterial and central lines. Delirium also improved, remains weak 03/11: doing much better this morning. no complaints. still with poor appetite. electrolytes improved. Subjective: 03/20: We consulted for respiratory failure. Patient was last seen in room 1415 CMP receiving oral cares and became acutely hypoxic saturations 82% with coarse breath sounds. [facility]at called. Patient was placed on a Venturi mask 50 % with desaturations to the mid 90s. He received Solu-Medrol 20 mg IV 1, Lasix 40 mg IV 1 and was [place] [id number]. Hemodynamically stable. Poor mentation Objective Vital Signs Date Time Temp Pulse Resp B/P Pulse Ox O2 Delivery O2 Flow Rate FiO2 03/20/17 06:45 98.5 120 20 133/76 95 03/20/17 05:45 6.00 50 Intake and Output 03/19/17 03/19/17 03/20/17 08:00 16:00 00:00 Intake Total 0 ml 60 ml 0 ml Output Total 100 ml 450 ml 150 ml Balance -100 ml -390 ml -150 ml Result Diagram: 03/20/17 0618 03/19/17 0620 Imaging Last Impressions Chest X-Ray 03/05/17 0000 Signed Impressions: Service Date/Time: Sunday, March 05, 2017 08:59 - CONCLUSION: 1. The tip of the feeding tube is in the gastric antrum. Mihir Harry MD Shoulder X-Ray 03/02/17 1404 Signed Impressions: Service Date/Time: Thursday, March 02, 2017 15:18 - CONCLUSION: No evidence of recent bony injury. Deformity of the lateral left clavicle suggests old healed trauma. Cheo Martínez MD Maxillofacial CT 03/02/17 1342 Signed Impressions: Service Date/Time: Thursday, March 02, 2017 14:52 - CONCLUSION: Negative CT of the facial bones. Cheo Martínez MD Head CT 03/02/17 1342 Signed Impressions: Service Date/Time: Thursday, March 02, 2017 14:52 - CONCLUSION: 1. Prominent scalp swelling left frontal and parietal region. No skull fracture seen. 2. Intracranial contents are intact without acute finding. Cheo Martínez MD Chest CT 03/02/17 134 Signed Impressions: Service Date/Time: Thursday, March 02, 2017 15:04 - CONCLUSION: 1. Abnormal appearance of the lateral left clavicle suggesting a combination of acute and chronic bony injury. Fracture lucencies without bridging callus is seen the region of the coracoid process. 2. The lungs are clear. No evidence of pneumothorax. 3. Moderate size hiatus hernia. Cheo Martínez MD Cervical Spine CT 03/02/17 1342 Signed Impressions: Service Date/Time: Thursday, March 02, 2017 14:52 - CONCLUSION: Negative CT cervical spine. Cheo Martínez MD Abdomen/Pelvis CT 03/02/17 134 Signed Impressions: Service Date/Time: Thursday, March 02, 2017 15:04 - CONCLUSION: Moderate size hiatus hernia. Scattered small sigmoid diverticula. Otherwise negative exam. Cheo Martínez MD Objective Remarks GENERAL: 61-year-old male, critically ill currently resting been on Venturi mask HEENT: Healing abrasion left side scalp. TIMOTHY. Scleral icterus. Oropharynx without erythema NECK: No JVD/thyromegaly/lymph adenopathy. Midline CHEST: Coarse crackles appreciated throughout all lung beckett. Positive and extremity wheezes. CARDIOVASCULAR: Tachycardia, RRR. S1, S2. No S4. Without murmur ABDOMEN: Slightly distended/protuberant. Soft. Vague diffuse tenderness. Voluntary guarding. No rigidity. Hypoactive bowel sounds. MUSCULOSKELETAL: Posterior tibialis 2+ palpable. NEUROLOGICAL: Moaning on examination. Follows commands by giving thumbs up. Moves all 4 extremities spontaneously A/P Assessment and Plan Neuro/Psych: Acute toxic metabolic encephalopathy secondary to hyper ammonia/hypercarbic respiratory failure Alcohol dependence - 19 days hospitalized History of EtOH induced seizure withdrawal Chronic benzodiazepine use CT head 03/05 revealed no acute intracranial findings Will plan MRI brain when clinically stable Continue thiamine/folate and multivitamin. Ativan to 0.5mg iv q3h prn for agitation Morphine as needed for pain management Lorenzo Zantac 2 mg as needed at home. Currently on hold Respiratory: Acute hypoxemic hypercapnic respiratory failure Patient is currently Venturi mask at 50% goal keep saturations greater than equal to 90% Incentive spirometry while awake Chest x-ray revealed no acute cardio pulmonary findings. Patient likely aspirated. We'll monitor closely Cardiovascular: Sinus tachycardia Systolic heart failure Echocardiogram 03/04 revealed EF 35-40%. Mild mR. Left atrium dilated. JANE 33 mmHg Currently on normal saline at 84 cc an hour Received Lasix 40 mEq IV 1 on floor prior to transfer. Renal: Acute Kidney Injury- resolved Rhabdomyolysis- resolved Accurate I's and O's Monitor urine output closely Follow BMP in a.m. GI: Likely EtOH cirrhosis Hyperammonemia Hiatal hernia Sigmoid diverticulosis History of umbilical hernia repair Placed on Xifaxan 550 twice a day/lactulose 30 twice a day recheck ammonia in a.m. Currently 54 LFT is elevated. Check hepatitis panel/CPK and ultrasound liver Check lipase Patient on Prilosec 20 mg by mouth daily at home. Currently in IV Protonix Heme: Macrocytic anemia Leukocytosis Possibly leukemoid/stress versus aspiration B12/folate pending. Peripheral smear pending. No indications for transfusion of blood products at this time. Coags pending. ID: Escherichia coli UTI 03/11 - completed therapy Monitor for infection Check blood cultures 2, sputum and urine Start on Zosyn/vancomycin 1 dose with aspiration likely Endocrine: Hyperglycemia of critical illness History of hypothyroidism SSI with Accu-Cheks 4 times a day before meals/at bedtime to maintain euglycemia FEN: Replace electrolytes as clinically indicated MSK: History of old left clavicle fracture PT/OT evaluate and treat Access Utilize peripheral IV. Central line if indicated Prophylaxis: GI - Protonix DVT - SCD/heparin subcutaneous Critical Care: The total critical care time was 35 minutes. Time to perform other separately billable procedures was not included in the critical care time. Larry Ruby MD Mar 20, 2017 07:08
--- NOTE | 2017-03-20 07:13 | HHI.PR ---
Addendum to Inpatient Note Addendum Reason: Additional Documentation Additional Information Rapid response was called on this patient at around 5:45 AM. According to their nurses, patient was awake alert and verbally communicative during the rounds. However when they wear trying to to the oral care, patient suddenly became unresponsive and they had therefore ran out to call the charge nurse. Upon the charge nurse arrival, patient was tachypneic, with respiratory rate in the 40s, and O2 sat around 82% on room air. They have therefore placed patient on Ventimask. I came to see the patient at the bedside status. Patient is awake, seems alert. However not communicating verbally. He is basically staring into space. He is visibly short of breath and acute respiratory distress. Audible wheezing from a distance. He is not able to tell me any specific symptoms. Heart rate is tachycardic, regular rhythm. Around 130s. Bilateral inspiratory and expiratory wheezing. Accessory muscle use. Abdomen is soft and nontender. No suprapubic tenderness. Lower extremities did not reveal any calf asymmetry. Charts reviewed. Patient did not receive any sedations or any new medication started to suggest allergic reactions. The patient was being managed here since March 02, 2017 for severe hyponatremia, hepatic encephalopathy, alcohol withdrawal, cardiogenic shock. All have been resolved on review of records. According to the nurses as well, patient is mostly awaiting for placement into a nursing facility. He was not on IV fluids to suggest fluid overload. Nursing staff denies having had any witnessed episode of aspiration. Patient did not look to be in seizure state or postictal state on examination either. Impression: Acute respiratory distressquestionable etiology. Suspect aspiration although not witnessed. Rule out pulmonary edema given patient's previous cardiogenic shock history. Rule out ACS. Rule out pulmonary embolism History of hepatic encephalopathy History of alcohol withdrawal History of cardiogenic shock History of acute renal injury History of rhabdomyolysis in early part of this admission History of hyponatremia and hypophosphatemialife-threateningresolved History of refeeding syndromeresolved Liver cirrhosis Coagulopathy Plan: Patient was given Atrovent nebulizer stat due to his tachycardia in face of bronchospasms. He was also given Solu-Medrol 125 mg IV push. Lasix 40 mg IV push 1 dose was given. Chest x-ray status. ABG stat. Transferred patient to ICU. Patient out to the above treatment is actually clinically much better with improvement in aeration. He is still somewhat tachycardic around 110. He himself reports he is not feeling better though. Stat electrolytes and CBC. Serial cardiac enzymes and EKGs. ABGpersonally reviewed. Apart from respiratory alkalosis, no evidence of CO2 retention. Chest x-raypersonally reviewed. No evidence of pneumothorax/pulmonary edema. Discussed patient with care associate personal injury litigation paralegal. Patient will be transferred to care associate service for critical care management as he can decompensate in the near future with his respiratory status. Further workup regarding pulmonary embolism if indicated her care associate. Critical care time 30 minutes Elvis Dewey MD Mar 20, 2017 07:13
[2017-03-20] MEDS: SODIUM CHLOR 0.9% 1000 ML INJ 1,000 ML IV SCH ×2 (07:21→19:16)
[2017-03-20] MEDS ORDERED: SENNOSIDES 8.6 MG TAB PO PRN (07:30)
[2017-03-20] MEDS ORDERED: SODIUM CHLORIDE 0.9% FLUSH 10 ML FLUSH IV FLUSH PRN (07:30)
--- NOTE | 2017-03-20 07:48 | RADRPT ---
EXAM DATE/TIME: 03/20/2017 07:04 [facility] COMPARISON: CHEST SINGLE AP, March 05, 2017, 8:59. INDICATIONS : Acute Respiratory Failure. MEDICAL HISTORY : Unobtainable. SURGICAL HISTORY : Brain surgery. ENCOUNTER: Subsequent ACUITY: 2 weeks PAIN SCORE: Non-responsive. LOCATION: Bilateral chest FINDINGS: A single view of the chest demonstrates the lungs to be symmetrically aerated without evidence of mas s, infiltrate or effusion. The cardiomediastinal contours are unremarkable. Osseous structures are intact. CONCLUSION: Improvement with no acute disease. Hamlet Harry MD FACR on March 20, 2017 at 7:41 Board Certified Radiologist. This report was verified electronically.
[2017-03-20 08:38] LABS: INTERNATIONAL NORMALIZED RATIO 1.3 RATIO; PROTHROMBIN TIME - PATIENT 14.7 SEC (9.8-11.6)
[2017-03-20 08:59] LABS: CREATINE KINASE 21 U/L (39-308)
[2017-03-20] MEDS: LACTULOSE SYRUP 20 GM/30 ML CUP PO SCH ×2 (09:00→21:49)
[2017-03-20] MEDS: DOCUSATE SODIUM 100 MG CAP PO SCH ×2 (09:00→21:49)
[2017-03-20] MEDS: MUPIROCIN 2% OINT 1 APPLIC/GM SYR EACH NARE SCH ×2 (09:00→21:53)
[2017-03-20] MEDS: ARTIFICIAL TEARS OPTH SOLN 15 ML BTL EACH EYE SCH ×3 (09:00→18:00)
[2017-03-20] MEDS: THIAMINE HCL 100 MG TAB PO SCH (09:00)
[2017-03-20] MEDS: RIFAXIMIN 550 MG TAB PO SCH ×2 (09:00→21:49)
[2017-03-20] MEDS: MULTIVITAMIN TAB PO SCH (09:00)
[2017-03-20] MEDS: FOLIC ACID 1 MG TAB PO SCH (09:00)
[2017-03-20] MEDS: PANTOPRAZOLE SODIUM 40 MG VIAL IV SCH (09:00)
[2017-03-20] MEDS: SODIUM CHLORIDE 0.9% FLUSH 10 ML FLUSH IV FLUSH SCH ×2 (09:00→21:49)
[2017-03-20] MEDS ORDERED: VANCOMYCIN INJ 1,000 MG in SODIUM CHLOR 0.9% 250 ML INJ 250 ML IV ONE (09:15)
[2017-03-20] MEDS: RESP: ALBUTEROL 2.5 MG/IPRATROPIUM 0.5 MG NEB (SCH) INH ×3 (09:27→21:43)
[2017-03-20] MEDS: PIPERACIL-TAZO 4.5 GM PREMIX 100 ML IV SCH ×2 (10:00→17:43)
[2017-03-20] MEDS: INSULIN NovoLIN REGULAR SUPPLEMENTAL SCALE SQ SCH ×3 (11:00→21:00)
--- NOTE | 2017-03-20 13:58 | RADRPT ---
EXAM DATE/TIME: 03/20/2017 11:38 [facility] COMPARISON: No previous studies available for comparison. INDICATIONS : Abdominal pain. MEDICAL HISTORY : Cirrhosis. MRSA. Hepatic encephalopathy. ETOH abuse. Cardiogenic shock. Acute renal injury. Hypon atremia. SURGICAL HISTORY : Circumcision. ENCOUNTER: Initial ACUITY: 1 day PAIN SCORE: Nonresponsive. LOCATION: Bilateral upper quadrant MEASUREMENTS: LIVER: 17.3 cm length COMMON DUCT: 3 mm RIGHT KIDNEY: 11.7 x 4.3 x 6.4 cm LEFT KIDNEY: 11.5 x 5.7 x 6.6 cm SPLEEN: 16.1 cm length AORTA: 2.9cm maximal FINDINGS: LIVER: Normal echotexture without focal lesion or ductal dilatation. Hepatopedal flow within the portal vei n. COMMON DUCT: No intraluminal mass or stone visualized. GALLBLADDER: There is homogeneous low level internal echoes within the lumen of the gallbladder suggesting sludge. No shadowing stones. No pericholecystic fluid. Negative sonographic Markham's sign. PANCREAS: No focal measurable abnormalities. The overall echotexture of the spleen is diffusely decreased. RIGHT KIDNEY: No hydronephrosis, stone or mass. LEFT KIDNEY: No hydronephrosis, stone or mass. SPLEEN: No focal lesion. AORTA: Non aneurysmal. IVC: Within normal limits. CONCLUSION: 1. Hepatosplenomegaly without focal lesion. 2. Probable sludge within the lumen of the gallbladder. No intrahepatic duct. Cheo Martínez MD on March 20, 2017 at 13:54 Board Certified Radiologist. This report was verified electronically.
[2017-03-20] MEDS ORDERED: GADODIAMIDE PF 287 MG/ML 10 ML VIAL (for RAD MRI) IV ONE (16:44)
--- NOTE | 2017-03-20 17:14 | RADRPT ---
EXAM DATE/TIME: 03/20/2017 16:11 [facility] COMPARISON: CT CERVICAL SPINE W/O CONTRAST, March 02, 2017, 14:52. CT BRAIN W/O CONTRAST, March 22, 2015, 23:05. CT BRAIN W/O CONTRAST, March 02, 2017, 14:52. INDICATIONS : Altered mental status. CONTRAST: 10 cc Omniscan (gadodiamide) IV MEDICAL HISTORY : None. SURGICAL HISTORY : Unknown/cleared by radiologist. ENCOUNTER: Subsequent ACUITY: 2 weeks PAIN SCORE: Nonresponsive. LOCATION: head TECHNIQUE: Multiplanar, multisequence MRI of the brain was performed both prior to and following the administrat ion of paramagnetic contrast. FINDINGS: The examination is abnormal demonstrating prominent T1 and T2 prolongation in the central ruthy sparin g the peripheral fibers. On the diffusion-weighted images, there is minimal restricted diffusion. N o enhancement seen with in the signal abnormality. There are also 2 small punctate areas in the post erior cortical spinal tracts of the thalamus, also characterized by T2 prolongation and mild restrict ed diffusion. The ventricles are symmetric in size. There is good kimball-white matter differentiation. Incidental n ote of cavum septum pellucidum and cavum vergae. No extra-axial fluid or extra-axial blood. The cer ebellum has a normal configuration. Visualized portions orbits or paranasal sinuses is intact. CONCLUSION: Abnormal appearance to the ruthy with some extension into the cortical spinal tracts of the posterior thalamus was bilaterally. 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 Cheo Martínez MD on March 20, 2017 at 16:56 Board Certified Radiologist. This report was verified electronically.
--- NOTE | 2017-03-20 19:05 | RADRPT ---
EXAM DATE/TIME: 03/20/2017 18:12 [facility] COMPARISON: No previous studies available for comparison. INDICATIONS : Dobhoff placement. MEDICAL HISTORY : Cirrhosis. MRSA. Hepatic encephalopathy. ETOH abuse. Cardiogenic shock. Acute renal injury. Hyponatre radha. SURGICAL HISTORY : None. ENCOUNTER: Initial ACUITY: 1 day PAIN SCORE: Non-responsive. LOCATION: chest FINDINGS: Examination of the abdomen demonstrates a normal bowel gas pattern. No free air is identified. No o rganomegaly is evident. Osseous structures are intact. A weighted feeding tube is observed with the tip projecting towards the pylorus. CONCLUSION: Tip of the Dobbhoff tube projecting towards the pylorus. Cheo Barrera Jr., MD on March 20, 2017 at 19:03 Board Certified Radiologist. This report was verified electronically.
--- NOTE | 2017-03-20 20:17 | EKG ---
Date Performed: 03/20/2017 Time Performed: 11:39:27 PTAGE: 61 years EKG: SINUS TACHYCARDIA WITH SHORT AL INTERVAL ST DEVIATION AND MODERATE T-WAVE ABNORMALITY, CONS IDER ANTEROLATERAL ISCHEMIA ABNORMAL ECG PREVIOUS TRACING : 03/02/2017 13.52 Compared to the previous tracing, ST/T wave changes are new DOCTOR: Marlon Sal Interpretating Date/Time 03/20/2017 20:16:17
[2017-03-21] VITALS (15 sets, daily range): BP systolic 105–126; BP diastolic 63–80; PULSE 102–122; RESP 16–30; TEMP 98.7–99.5; O2SAT 94–97
[2017-03-21] MEDS ORDERED: IOHEXOL 350 MG/ML 10 ML VIAL (for RAD DIAG) IV ONE (00:33)
--- NOTE | 2017-03-21 00:59 | RADRPT ---
EXAM DATE/TIME: 03/21/2017 00:33 [facility] COMPARISON: No previous studies available for comparison. INDICATIONS : Elevated troponin. Evaluate for emboli. IV CONTRAST: 75 cc Omnipaque 350 (iohexol) IV RADIATION DOSE: 23.30 CTDIvol (mGy) MEDICAL HISTORY : Cirrhosis. Hernia, hiatal. SURGICAL HISTORY : None. ENCOUNTER: Initial ACUITY: 1 day PAIN SCALE: Non-responsive LOCATION: Bilateral chest TECHNIQUE: Volumetric scanning of the chest was performed using a pulmonary embolism protocol MIP images were re constructed. Using automated exposure control and adjustment of the mA and/or kV according to patien t size, radiation dose was kept as low as reasonably achievable to obtain optimal diagnostic quality images. FINDINGS: PULMONARY ARTERIES: No filling defects are seen in the pulmonary arteries through the segmental level. LUNGS: Small mild left basilar atelectasis There is no pneumothorax . No concerning pulmonary nodule is vis ualized. PLEURAE: There is no pleural thickening or pleural effusion. MEDIASTINUM: There is significant fluid/phlegm within the trachea .There is good visualization of the great vessel s of the middle mediastinum. No evidence of mediastinal or hilar adenopathy/mass. MUSCULOSKELETAL: Within normal limits for patient age. Pseudoarthrosis between the left clavicle and the coracoid proc ess suggests previous injury MISCELLANEOUS: The visualized upper abdominal organs demonstrate no acute abnormality. CONCLUSION: No evidence of pulmonary embolism is identified. Mild atelectasis left lung base. Fluid or phlegm wit hin the trachea. Milo Muhammad MD on March 21, 2017 at 0:56 Board Certified Radiologist. This report was verified electronically.
[2017-03-21 01:52] LABS: MAGNESIUM 2.2 MG/DL (1.5-2.5)
[2017-03-21 02:05] LABS: CREATINE KINASE 18 U/L (39-308)
[2017-03-21] MEDS: PIPERACIL-TAZO 4.5 GM PREMIX 100 ML IV SCH ×3 (02:43→18:15)
[2017-03-21] MEDS: RESP: ALBUTEROL 2.5 MG/IPRATROPIUM 0.5 MG NEB (SCH) INH ×4 (03:08→20:32)
--- NOTE | 2017-03-21 05:06 | RADRPT ---
EXAM DATE/TIME: 03/21/2017 03:28 [facility] COMPARISON: CHEST SINGLE AP, March 20, 2017, 7:04. INDICATIONS : Shortness of breath, possible pulmonary disease. MEDICAL HISTORY : None. SURGICAL HISTORY : None. ENCOUNTER: Subsequent ACUITY: 2 weeks PAIN SCORE: Non-responsive. LOCATION: Bilateral chest FINDINGS: A single view of the chest demonstrates the lungs to be symmetrically aerated without evidence of mas s, infiltrate or effusion. The cardiomediastinal contours are unremarkable. Osseous structures are intact. CONCLUSION: Normal examination. Milo Muhammad MD on March 21, 2017 at 5:04 Board Certified Radiologist. This report was verified electronically.
[2017-03-21 06:43] LABS: AUTOMATED NEUTROPHIL # 9.5 TH/MM3 (1.8-7.7); BASOPHIL % 0.4 % (0.0-2.0); EOSINOPHIL % 0.2 % (0.0-4.0); HEMATOCRIT 30.3 % (39.0-51.0); HEMO FLAGS DIFF FINAL; LYMPH % 12.8 % (9.0-44.0); LYMPHOCYTE # 1.5 TH/MM3 (1.0-4.8); MEAN CELL VOLUME 105.2 FL (80.0-100.0); MEAN CORPUSCULAR HEMOGLOBIN 36.3 PG (27.0-34.0); MEAN CORPUSCULAR HGB CONC 34.5 % (32.0-36.0); MONO % 7.4 % (0.0-8.0); NEUT % 79.2 % (16.0-70.0); PLATELET COUNT 297 TH/MM3 (150-450); RED BLOOD COUNT 2.88 MIL/MM3 (4.50-5.90); RED CELL DISTRIBUTION WIDTH 14.9 % (11.6-17.2)
[2017-03-21 06:49] LABS: APTT (PATIENT) 30.2 SEC (24.3-30.1); INTERNATIONAL NORMALIZED RATIO 1.4 RATIO; PROTHROMBIN TIME - PATIENT 16.1 SEC (9.8-11.6)
[2017-03-21 06:50] LABS: ALT (GPT) 81 U/L (12-78); ANION GAP 10 MEQ/L (5-15); AST (GOT) 111 U/L (15-37); BICARBONATE 22.7 MEQ/L (21.0-32.0); BLOOD UREA NITROGEN 32 MG/DL (7-18); CHLORIDE 117 MEQ/L (98-107); GLOMERULAR FILTRATION RATE 86 ML/MIN (>89); MAGNESIUM 2.4 MG/DL (1.5-2.5); POTASSIUM 3.3 MEQ/L (3.5-5.1); SODIUM (NA) 150 MEQ/L (136-145)
[2017-03-21 07:00] LABS: ALKALINE PHOSPHATASE 155 U/L (45-117); TOTAL BILIRUBIN ADULT 3.5 MG/DL (0.2-1.0)
[2017-03-21] MEDS: INSULIN NovoLIN REGULAR SUPPLEMENTAL SCALE SQ SCH ×4 (07:00→20:15)
[2017-03-21 07:11] LABS: CREATINE KINASE 17 U/L (39-308)
[2017-03-21] MEDS: SODIUM CHLOR 0.9% 1000 ML INJ 1,000 ML IV SCH (07:11)
[2017-03-21] MEDS: HEPARIN SODIUM - SQ 10,000 UNITS/ML VIAL SQ SCH ×3 (07:41→20:14)
[2017-03-21] MEDS: PANTOPRAZOLE SODIUM 40 MG VIAL IV SCH (08:28)
[2017-03-21] MEDS: SODIUM CHLORIDE 0.9% FLUSH 10 ML FLUSH IV FLUSH SCH ×2 (08:29→20:15)
[2017-03-21] MEDS: DOCUSATE SODIUM 100 MG CAP PO SCH ×2 (09:00→20:14)
[2017-03-21] MEDS: RIFAXIMIN 550 MG TAB PO SCH ×2 (09:00→20:15)
[2017-03-21] MEDS: MUPIROCIN 2% OINT 1 APPLIC/GM SYR EACH NARE SCH ×2 (09:00→20:14)
[2017-03-21] MEDS: ARTIFICIAL TEARS OPTH SOLN 15 ML BTL EACH EYE SCH ×3 (09:00→18:00)
[2017-03-21] MEDS: THIAMINE HCL 100 MG TAB PO SCH (09:00)
[2017-03-21] MEDS: MULTIVITAMIN TAB PO SCH (09:00)
[2017-03-21] MEDS: FOLIC ACID 1 MG TAB PO SCH (09:00)
[2017-03-21] MEDS: LACTULOSE SYRUP 20 GM/30 ML CUP PO SCH ×2 (09:00→20:14)
[2017-03-21] MEDS ORDERED: POTASSIUM CHLORIDE 20 MEQ PWD PACKET NG ONE (13:00)
--- NOTE | 2017-03-21 13:25 | PD.TRANSFR ---
Transfer Summary Admission Date Mar 02, 2017 at 16:19 Admitting Diagnosis hyponatremia, elevated troponin, AMS, hyperbilirubinemia Diagnoses: (1) Central pontine myelinolysis Diagnosis: Principal (2) Acute hypoxemic respiratory failure Diagnosis: Principal (3) Hepatic encephalopathy Diagnosis: Principal (4) Hypokalemia Diagnosis: Principal (5) Lactic acidosis Diagnosis: Principal (6) Altered mental status Diagnosis: Principal (7) Elevated troponin Diagnosis: Principal (8) Hyponatremia Diagnosis: Principal (9) Liver disease Diagnosis: Secondary Transfer Summary/Subjective This is a 61-year-old male with a past history of alcohol abuse and a prior admission in 2014 for severe life-threatening hyponatremia at that time with a serum sodium of 98. He presents today with what he states is a 13 day history of worsening fatigue and weakness. He is very altered and is very difficult to understand the patient. What I can understand from him, is that at some point during these 13 days he has fallen and hit his face. Otherwise he states he lays on the couch, and has not gotten not much. He states he drinks 1 beer in the morning, and 1 beer in the afternoon. He does endorse taking some Xanax to help him sleep. He denies other drug use. He denies chest pain, shortness of breath, fever, chills, nausea, vomiting, abdominal pain. It is very difficult to get him to answer anymore questions about his medical history. His speech is very slurred and he is trying to talk about how he misses his daughter. Emergency department he was found to have a serum sodium of 99, a bilirubin of 8.9, lactate of 9.8, ammonia of 60, CK of 7000, elevated troponin of 4.9 with a normal MB ratio, creatinine 1.5, serum bicarbonate of 13. His white count is 12 , platelets 112. INR 1.9. His MELD calculates at 26. 4/2: Sodium level rapidly corrected overnight, likely secondary to appropriate correction of severe life-threatening dehydration. NS fluids changed to 1/2NS and correction slowed down significantly. sodium up to 130 this AM. CK downtrending. however, patient remains severely hypotensive requiring Levophed to maintain a map > 65 mmHg. This AM, serum K 1.6 (confirmed). started replacement with 200meq KCl and recheck K. 4/3: persists in vasoplegic distributive shock. afebrile. no evidence of infection. wbc downtrending. persists with severe life-threatening electrolyte derangements. passed swallow eval for nectar thick liquids. sodium stable at 131. ck downtrending. 03/05: persists in distributive shock. echo yesterday with EF 30%, globally decreased function. milrinone added yesterday with improvement in vasopressor requirement. still with multiple electrolyte abnormalities despite very aggressive replacement. very poor appetite. sodium stable at 131, which appears to be around baseline for him, looking back at prior records. also became agitated and delirious yesterday, likely secondary to etoh withdraw. started on Ativan and Librium. 03/06: electrolyte derangements persist. placed on continuous NaPhos infusion x 24h due to severe life-threatening hypophosphatemia. serial K, phos checks. weaning off levophed, milrinone persists. still poor appetite. sodium jumped from 132 to 139, but no significant mental status change, and we did not increase sodium load. 03/07: still requiring high electrolyte replacement. milrinone weaned to 0.375 mcg /kg/min overnight. still doing well with that. delirium persists. 03/08 Remains on milrinone. Electrolyte improving. Remains very lethargic, intermittently follows commands 03/09: Continues to be lethargic but wakes up follows some commands. Remains on milrinone will DC today. T max 100.1, urine output adequate sodium is 143 03/10: More awake alert, ate 50% of break fast. Will DC Dobhoff. Discontinue arterial and central lines. Delirium also improved, remains weak 03/11: doing much better this morning. no complaints. still with poor appetite. electrolytes improved. Subjective: 03/20: We consulted for respiratory failure. Patient was last seen in room 1415 CMP receiving oral cares and became acutely hypoxic saturations 82% with coarse breath sounds. Halicat called. Patient was placed on a Venturi mask 50 % with desaturations to the mid 90s. He received Solu-Medrol 20 mg IV 1, Lasix 40 mg IV 1 and was transferred IM serum 521. Hemodynamically stable. 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 Neuro exam unchanged. ODS most likely from rapid correction of Na. Reviewing the admit notes, rapid correction happened due to appropriate aggressive resuscitation for severe dehydration and hypotension requiring pressors. Initial Na correction on 03/02 was 99 to 128 in approximately 12 hour period. Corrective measures taken by the environmental research scientist that time. I will consult neurology for recommendation. I will attempt re lowering the Na to 130-135 over next 48 hours , and give 0.5 mcg IV DDAVP. But this is day 20 since rapid correction occurred and I doubt any benefit at this time (ODS typically happens 2-6 days after rapid correction) Objective Vital Signs Date Time Temp Pulse Resp B/P Pulse Ox O2 Delivery O2 Flow Rate FiO2 03/21/17 12:00 106 03/21/17 08:26 96 Nasal Cannula 4.00 03/21/17 08:00 99.0 22 126/77 03/20/17 12:00 50 Intake and Output 03/20/17 03/20/17 03/21/17 08:00 16:00 00:00 Intake Total 0 ml 468 ml 710 ml Output Total 100 ml 700 ml 525 ml Balance -100 ml -232 ml 185 ml Result Diagram: 03/21/17 0615 03/21/17 0615 Imaging Last Impressions Chest X-Ray 03/05/17 0000 Signed Impressions: Service Date/Time: Sunday, March 05, 2017 08:59 - CONCLUSION: 1. The tip of the feeding tube is in the gastric antrum. Mihir Harry MD Shoulder X-Ray 03/02/17 1404 Signed Impressions: Service Date/Time: Thursday, March 02, 2017 15:18 - CONCLUSION: No evidence of recent bony injury. Deformity of the lateral left clavicle suggests old healed trauma. Cheo Martínez MD Maxillofacial CT 03/02/17 1342 Signed Impressions: Service Date/Time: Thursday, March 02, 2017 14:52 - CONCLUSION: Negative CT of the facial bones. Cheo Martínez MD Head CT 03/02/17 134 Signed Impressions: Service Date/Time: Thursday, March 02, 2017 14:52 - CONCLUSION: 1. Prominent scalp swelling left frontal and parietal region. No skull fracture seen. 2. Intracranial contents are intact without acute finding. Cheo Martínez MD Chest CT 03/02/17 7522 Signed Impressions: Service Date/Time: Thursday, March 02, 2017 15:04 - CONCLUSION: 1. Abnormal appearance of the lateral left clavicle suggesting a combination of acute and chronic bony injury. Fracture lucencies without bridging callus is seen the region of the coracoid process. 2. The lungs are clear. No evidence of pneumothorax. 3. Moderate size hiatus hernia. Cheo Martínez MD Cervical Spine CT 03/02/17 1342 Signed Impressions: Service Date/Time: Thursday, March 02, 2017 14:52 - CONCLUSION: Negative CT cervical spine. Cheo Martínez MD Abdomen/Pelvis CT 03/02/17 1342 Signed Impressions: Service Date/Time: Thursday, March 02, 2017 15:04 - CONCLUSION: Moderate size hiatus hernia. Scattered small sigmoid diverticula. Otherwise negative exam. Cheo Martínez MD Objective Remarks GENERAL: 61-year-old male, critically ill currently resting in bed on Venturi mask HEENT: Healing abrasion left side scalp. TIMOTHY. Scleral icterus. Oropharynx without erythema NECK: No JVD/thyromegaly/lymph adenopathy. Midline CHEST: Coarse crackles appreciated throughout all lung beckett. Few wheezes. CARDIOVASCULAR: Tachycardia, RRR. S1, S2. No S4. Without murmur ABDOMEN: Slightly distended/protuberant. Soft. Vague diffuse tenderness. Voluntary guarding. No rigidity. Hypoactive bowel sounds. MUSCULOSKELETAL: Posterior tibialis 2+ palpable. NEUROLOGICAL: Moaning on examination, but following commands slow to respond. Moves all 4 extremities spontaneously Urinary Catheter: Yes Assessment to: Continue A/P Assessment and Plan Neuro/Psych: Osmotic demyelination syndrome Acute toxic metabolic encephalopathy secondary to hyper ammonia/hypercarbic respiratory failure Alcohol dependence - 19 days hospitalized History of EtOH induced seizure withdrawal Chronic benzodiazepine use MRI 03/21 - Osmotic demyelination syndrome. ODS most likely from rapid correction of Na, with underlying alcoholism Reviewing the admit notes, rapid correction happened due to appropriate aggressive resuscitation for severe dehydration and shock requiring pressors. Initial Na correction on 03/02 was 99 to 128 in approximately 12 hour period. Corrective measures taken by the environmental research scientist that time. I will consult neurology for recommendation. I will attempt re lowering the Na to 130-135 over next 48 hours, and give 0.5 mcg IV DDAVP. But this is day 20 since rapid correction occurred and I doubt any benefit at this time (ODS typically happens 2-6 days after rapid correction) Change from NS to 1/2 NS at 125 ml per hour and DDAVP 0.[address] head 03/05 revealed no acute intracranial findings Continue thiamine/folate and multivitamin. Ativan to 0.5mg iv q3h prn for agitation Morphine as needed for pain management Respiratory: Acute hypoxemic hypercapnic respiratory failure Patient is currently Venturi mask at 50% goal keep saturations greater than equal to 90% Incentive spirometry while awake Chest x-ray revealed no acute cardio pulmonary findings. Patient likely aspirated. We'll monitor closely for further aspiration Continue feeding via Dobbhoff tube Cardiovascular: Sinus tachycardia Systolic heart failure Echocardiogram 03/04 revealed EF 35-40%. Mild mR. Left atrium dilated. JANE 33 mmHg Currently on normal saline at 84 cc an hour, change to 12/03 NS Received Lasix 40 mEq IV 1 on floor prior to transfer. Renal: Acute Kidney Injury- resolved Rhabdomyolysis- resolved ODS-see neuro Accurate I's and O's Monitor urine output closely Follow BMP in a.m. GI: Likely EtOH cirrhosis Hyperammonemia Hiatal hernia Sigmoid diverticulosis History of umbilical hernia repair Placed on Xifaxan 550 twice a day/lactulose 30 twice a day recheck ammonia in a.m. Currently 54 LFT is elevated. Ultrasound liver-hepatosplenomegaly Patient on Prilosec 20 mg by mouth daily at home. Currently in IV Protonix Stat tube feeds Heme: Macrocytic anemia Leukocytosis Possibly leukemoid/stress versus aspiration B12/folate pending. Peripheral smear pending. No indications for transfusion of blood products at this time. Coags pending. ID: Escherichia coli UTI 03/11 - completed therapy Monitor for infection Check blood cultures 2, sputum and urine On Zosyn/vancomycin 1 dose with aspiration likely Endocrine: Hyperglycemia of critical illness History of hypothyroidism SSI with Accu-Cheks 4 times a day before meals/at bedtime to maintain euglycemia FEN: Replace electrolytes as clinically indicated MSK: History of old left clavicle fracture PT/OT evaluate and treat Access Utilize peripheral IV. Central line if indicated Prophylaxis: GI - Protonix DVT - SCD/heparin subcutaneous Critical Care: Level 3 [facility] consulted to assume care in am. Discussed with Jeyson Fairchild MD Mar 21, 2017 13:25
--- NOTE | 2017-03-21 13:52 | EKG ---
Date Performed: 03/20/2017 Time Performed: 19:39:08 PTAGE: 61 years EKG: SINUS TACHYCARDIA MODERATE T-WAVE ABNORMALITY, CONSIDER LATERAL ISCHEMIA ABNORMAL ECG Maxim red to prior tracing no significant change PREVIOUS TRACING : 03/20/2017 11.39 DOCTOR: Yinka Pederson Interpretating Date/Time 03/21/2017 13:50:21
[2017-03-21] MEDS ORDERED: DESMOPRESSIN ACETATE 4 MCG/ML VIAL IV PUSH ONE ×2 (14:00→15:00)
[2017-03-21] MEDS: FREE WATER NG SCH ×3 (14:45→23:52)
[2017-03-21] MEDS: SODIUM CHLOR 0.45% 1000 ML INJ 1,000 ML IV SCH (15:54)
--- NOTE | 2017-03-21 23:33 | MB ---
cc: BIRD GREWAL MD DATE OF CONSULTATION 03/21/17 REASON FOR CONSULTATION Osmotic demyelination syndrome HISTORY OF PRESENT ILLNESS Mr. Sandhu is a 61-year-old male with past medical history of alcohol use. The patient is nonverbal, hence, history is obtained from review of medical records. The patient was admitted in 2014 for severe life threatening hyponatremia with a serum sodium of 98. He presented on March 02, 2017 with history of 13-day worsening fatigue and weakness. He was found to be very altered, difficult to understand. He reported at that time that he has fallen and hit his face. He stated that he drinks one beer in the morning and one beer in the afternoon. He also takes Xanax to help sleep. Denies drug abuse. In the emergency department, his serum sodium was found to be 99, bilirubin 8.9, lactate 9.8, ammonia 60, CK 7000, troponin 4.9, creatinine 1.5, bicarb 13, white blood cells 12, platelets 112, INR 1.9, 142 is sodium level was rapidly corrected secondary to appropriate correction of severe life threatening dehydration. Severe electrolyte derangements persisted a few days later and he was in shock at certain point during the treatment. The patient continues to be lethargic. The patient is in respiratory failure, hypoxic. The patient was placed on Venturi mask 50% on 03/20. He was desaturating to the mid 90s received Solu-Medrol. REVIEW OF SYSTEMS Unable to obtain but from review of medical records a 12-point review of systems is negative except for what is stated in the HPI. PAST MEDICAL HISTORY Unable to obtain. PAST SURGICAL HISTORY Unable to obtain. MEDICATIONS Unable to obtain but he was taking Xanax for sleep. MEDICATIONS Unable to obtain. FAMILY HISTORY Unable to obtain. SOCIAL HISTORY Unable to obtain because of the current status of being encephalopathic. PHYSICAL EXAMINATION GENERAL: The patient is critically ill on mask, critically ill, minimally verbal, responds to painful stimulation by moaning. HEENT: There is an abrasion of the left side of the scalp, poor oral hygiene in the teeth. Jaundiced. Unable to assess hearing and vision. Conjunctival injection NECK: No JVD, no lymphadenopathy. No signs of meningeal irritation. RESPIRATORY: Coarse crackles with scattered wheezes CARDIOVASCULAR: sinus tachycardia ABDOMEN: Distended, nontender. No rigidity. MUSCULOSKELETAL: Peripheral pulses are present. No edema. NEUROLOGIC: The patient is lethargic, responds to verbal stimuli intermittently by slightly opening the eye, does not follow simple commands, moans to pain/ sternal rub, moves extremities spontaneously but not meaningfully. reflexes 1+ bilateral symmetrical. Plantars are bilateral, mute. IMPRESSION 1. Acute encephalopathy. Likely metabolic. Likely etiology is toxic metabolic with hyperammonemia, hyperbilirubinemia and abnormal electrolytes with severe hyponatremia. 2. Alcohol dependence 3. History of ethanol induced seizure withdrawal 4. Chronic benzodiazepine use. 5. Central pontine myelolysis likely etiology is rapid correction of hyponatremia evident on MRI of the brain. PLAN 1. Neuro checks q. one hourly. 2. CIWA protocol thiamine, folate and multivitamin. 3. Ativan 0.25 mg for seizures lasting more than 3 minutes. 4. Seizure precautions. 5. Maintenance of electrolyte balance, slow correction of the sodium and potassium 6. DVT prophylaxis. Thank you for the opportunity to participate in the care of your patient. MD CORIE Nieves/ /10:36 PM /11:17 PM [facility]CH[facility]
[2017-03-22] VITALS (15 sets, daily range): BP systolic 95–116; BP diastolic 38–71; PULSE 88–122; RESP 16–40; TEMP 98.8–103; O2SAT 96–100
[2017-03-22] MEDS: SODIUM CHLOR 0.45% 1000 ML INJ 1,000 ML IV SCH ×2 (00:59→08:58)
[2017-03-22] MEDS: PIPERACIL-TAZO 4.5 GM PREMIX 100 ML IV SCH ×3 (02:15→18:11)
[2017-03-22] MEDS: RESP: ALBUTEROL 2.5 MG/IPRATROPIUM 0.5 MG NEB (SCH) INH ×4 (03:12→21:37)
[2017-03-22] MEDS: MORPHINE SULFATE 4 MG/ML INJ IV PRN ×2 (04:00→22:00)
[2017-03-22] MEDS: HEPARIN SODIUM - SQ 10,000 UNITS/ML VIAL SQ SCH ×3 (05:54→22:00)
[2017-03-22] MEDS: FREE WATER NG SCH ×3 (05:54→18:00)
[2017-03-22] MEDS: INSULIN NovoLIN REGULAR SUPPLEMENTAL SCALE SQ SCH ×3 (05:55→20:53)
[2017-03-22] MEDS: LACTULOSE SYRUP 20 GM/30 ML CUP PO SCH ×2 (08:12→20:51)
[2017-03-22] MEDS: PANTOPRAZOLE SODIUM 40 MG VIAL IV SCH (08:12)
[2017-03-22] MEDS: RIFAXIMIN 550 MG TAB PO SCH ×2 (09:00→20:51)
[2017-03-22] MEDS: SODIUM CHLORIDE 0.9% FLUSH 10 ML FLUSH IV FLUSH SCH ×2 (09:00→20:51)
[2017-03-22] MEDS: ARTIFICIAL TEARS OPTH SOLN 15 ML BTL EACH EYE SCH ×3 (09:00→18:00)
[2017-03-22] MEDS: MUPIROCIN 2% OINT 1 APPLIC/GM SYR EACH NARE SCH ×2 (09:00→20:51)
[2017-03-22] MEDS: DOCUSATE SODIUM 100 MG CAP PO SCH ×2 (09:00→20:51)
--- NOTE | 2017-03-22 11:09 | HHI.PR ---
Subjective Remarks Follow-up ODS 03/22/17-patient seen and examined, lethargic and currently on nasal cannula 2 L oxygen. Sodium 152. Nothing by mouth with tube feeding place Objective Vitals Vital Signs Date Time Temp Pulse Resp B/P Pulse Ox O2 Delivery O2 Flow Rate FiO2 03/22/17 07:47 97 Nasal Cannula 2.00 03/22/17 06:00 110 03/22/17 04:00 107 03/22/17 04:00 98.8 107 22 116/71 100 03/22/17 04:00 100 Nasal Cannula 4.00 03/22/17 02:00 91 03/22/17 00:00 97 03/22/17 00:00 98 Nasal Cannula 4.00 03/22/17 00:00 100.2 97 28 104/64 98 03/21/17 22:00 102 03/21/17 20:28 94 Nasal Cannula 4.00 03/21/17 20:00 108 03/21/17 20:00 98.7 109 20 105/63 96 03/21/17 20:00 96 Nasal Cannula 4.00 03/21/17 18:00 106 03/21/17 16:02 95 Nasal Cannula 4.00 03/21/17 16:00 106 03/21/17 16:00 Nasal Cannula 4.00 03/21/17 16:00 98.8 113 16 108/66 95 03/21/17 14:00 106 03/21/17 12:00 Nasal Cannula 4.00 03/21/17 12:00 106 03/21/17 12:00 99.0 110 22 111/69 97 I/O 03/21/17 03/21/17 03/21/17 03/22/17 03/22/17 03/22/17 07:00 15:00 23:00 07:00 15:00 23:00 Intake Total 688 ml 636 ml 1040 ml 1471 ml Output Total 450 ml 650 ml 450 ml 250 ml Balance 238 ml -14 ml 590 ml 1221 ml IV Total 688 ml 636 ml 848 ml 847 ml Tube Feeding 72 ml 224 ml Other 120 ml 400 ml Output Urine Total 450 ml 650 ml 450 ml 250 ml # Bowel Movements 0 1 0 2 Result Diagram: 03/21/17 0615 03/22/17 0948 Objective Remarks GENERAL: NAD, lethargic SKIN: Warm and dry. HEAD: Normocephalic. EYES: No scleral icterus. No injection or drainage. NECK: Supple, trachea midline. No JVD or lymphadenopathy. CARDIOVASCULAR: Regular rate and rhythm without murmurs, gallops, or rubs. RESPIRATORY: Breath sounds equal bilaterally. No accessory muscle use. GASTROINTESTINAL: Abdomen soft, non-tender, nondistended. MUSCULOSKELETAL: No cyanosis, or edema. BACK: Nontender without obvious deformity. No CVA tenderness. 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 Status: Acute (3) Acute hypoxemic respiratory failure ICD Code: J96.01 Status: Acute (4) Hepatic encephalopathy ICD Code: K72.90 Status: Resolved (5) Hypokalemia ICD Code: E87.6 Status: Resolved (6) Lactic acidosis ICD Code: E87.2 Status: Resolved (7) Altered mental status ICD Code: R41.82 Status: Resolved (8) Elevated troponin ICD Code: R74.8 Status: Resolved (9) Hyponatremia ICD Code: E87.1 Status: Resolved (10) Liver disease ICD Code: K76.9 Status: Chronic Assessment and Plan 61-year-old man with Osmotic demyelination syndrome Acute toxic metabolic encephalopathy secondary to hyper ammonia/hypercarbic respiratory failure Alcohol dependence - 19 days hospitalized History of EtOH induced seizure withdrawal Chronic benzodiazepine use -Currently on 1/2 NS at 125 ml per hour and s/p DDAVP 0.5 mcg IVx1 -Serial sodium monitoring -Continue thiamine/folate and multivitamin. -Consult palliative care medicine 03/22/17 Ativan to 0.5mg iv q3h prn for agitation Morphine as needed for pain management Acute hypoxemic hypercapnic respiratory failure Currently NC 2L goal keep saturations greater than equal to 90% Incentive spirometry while awake DuoNeb PRN Sinus tachycardia Systolic heart failure Echocardiogram 03/04 revealed EF 35-40%. Mild mR. Left atrium dilated. JANE 33 mmHg Currently on normal saline 1/2 NS Acute Kidney Injury- resolved Rhabdomyolysis- resolved ODS-see neuro Accurate I's and O's Monitor urine output closely Follow BMP in a.m. Likely EtOH cirrhosis Hyperammonemia Hiatal hernia Sigmoid diverticulosis History of umbilical hernia repair Continue Xifaxan 550 twice a day/lactulose 30 twice a day LFT is elevated. Ultrasound liver-hepatosplenomegaly Continue IV Protonix Tube feed Macrocytic anemia Leukocytosis No indications for transfusion of blood products at this time. Coags pending. Escherichia coli UTI 03/11 - completed therapy Aspiration Bacterial PNA? s/p Zosyn/vancomycin 1 dose with aspiration likely Continue Zosyn every 8h and monitor for sign of infection Hyperglycemia of critical illness History of hypothyroidism SSI with Accu-Cheks 4 times a day before meals/at bedtime to maintain euglycemia History of old left clavicle fracture PT/OT evaluate and treat Prophylaxis: GI - Protonix DVT - SCD/heparin subcutaneous Poor prognosis, palliative medicine consultation pending Total critical care time 35 minutes Discharge Planning Likely discharged to SNF when medically stable Problem Qualifiers (1) Altered mental status: Qualified Code: R41.82 - Altered mental status, unspecified altered mental status type Logan Calderon MD Mar 22, 2017 11:09 On Zosyn/vancomycin 1 dose with aspiration likely Endocrine: Hyperglycemia of critical illness History of hypothyroidism SSI with Accu-Cheks 4 times a day before meals/at bedtime to maintain euglycemia FEN: Replace electrolytes as clinically indicated MSK: History of old left clavicle fracture PT/OT evaluate and treat Access Utilize peripheral IV. Central line if indicated Prophylaxis: GI - Protonix DVT - SCD/heparin subcutaneous Discharge Planning Likely discharged to SNF when medically stable Problem Qualifiers (1) Altered mental status: Qualified Code: R41.82 - Altered mental status, unspecified altered mental status type Logan Calderon MD Mar 22, 2017 11:09
--- NOTE | 2017-03-22 15:15 | PD.CONS ---
Consult Service Palliative Care Consult Requested By Dr Hilton Primary Care Physician No Primary Care Physician Reason for Consultation a. To assist with evaluation and management of symptoms including: dyspnea, high risk for aspiration, anxiety b. To assist medical decision maker(s) with: better understanding of current medical conditions; weighing benefits/burdens of medical treatment options; making medical treatment decisions. HPI History of Present Illness This is a 61-year-old male, admitted 03/02/17 , with past history of alcohol abuse and prior admission in 2014 for severe life-threatening hyponatremia. He presented with a 13 day history of worsening fatigue and weakness and with altered mental status. On initial exam, he was found to have a serum sodium of 99. Additional admitting diagnoses included severe dehydration, rhabdomyolysis , MAXIME, metabolic encephalopathy, end-stage liver disease with a meld of 26, elevated ammonia levels. He was also found to be hypotensive secondary to dehydration. Sodium levels were rapidly corrected overnight in order to correct severe life-threatening dehydration. Overall a clinical course of 10 days, electrolytes improved. He became more awake and alert, able to eat breakfast, with delirium, improving as well. He was subsequently transferred from the ICU to a [facility] floor. He continued to show improvement. However, remained with confusion - alert and oriented x 2 - likely underlying hepatic encephalopathy/ alcohol-related. He was scheduled for discharge to a skilled facility when medically stable. However, on 03/20/17 a [facility] was called for hypoxemia and altered mental status. He was found to have extensive inspiratory rhonchi, with inspiratory and expiratory wheezes as well as accessory muscle use and Tachycardia - Suspected aspiration, although not witnessed. He was placed on a Ventimask 50% , received Solu-Medrol, Lasix, and was transferred back to ICU. 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 (ODS typically happens 2-6 days after rapid correction, which occurred 20 days prior). Neurologically, he remained lethargic with responses to verbal stimuli. Initially he was not able to follow simple commands but would moan to pain. Would move extremities spontaneously but not meaningfully. Neurologic status was complicated by elevated ammonia levels, hyperbilirubinemia and abnormal electrolytes. He had already been on CIWA protocol since admission. At the time of my evaluation, he is awake. He is able to track me with his eyes as I move around. He is able to follow a few simple commands such as eye blinks and movement of fingers on his right hand. He has very weak probation worker strength. He is nonverbal, will moan loudly at times. He has a spontaneous cough. He has 2 L nasal cannula with saturations in the high 80% as well as a nasogastric Dobbhoff feeding tube. He is unable and unreliable to provide any information at this time. Review of labs find elevating white blood cell count and blood cultures are pending. Sodium levels are currently 148-152, yesterday potassium was 3.3. Creatinine was 32, but no evidence of MAXIME, bilirubin 3.5- improved from 10.9; liver functions remain elevated, however, show considerable improvement since admission. Ammonia was 40, albumin 2.7; Echocardiogram was completed revealing an LVEF of 35-40% with mild mitral regurg. Chest x-ray was unremarkable on 03/21/17; US abdomen found hepatosplenomegaly without focal lesion; Records, the patient is . He does have a surviving daughter, however, it is unknown if he has other children. However, daughter, Amie, was recently arraigned and reportedly has a 5 year snf sentence. She was able to see her father last week and did sign consents for his placement to a skilled facility prior to the current event. There is also report of a brother in [place]. At this time, the patient remains full code with no living will. Review of Systems ROS Limitations: Clinical Condition, Altered Mental Status Respiratory: COMPLAINS OF: Cough, Shortness of breath Neurologic: COMPLAINS OF: Paresthesias Psychiatric: COMPLAINS OF: Confusion Other ROS: Patient has significant altered mental status, unable to provide verbal response. Information is obtained from review of records,or discussion with staff Past Family Social History Coded Allergies: PEANUTS (Unverified Allergy, Severe, 03/02/17) *MDRO Multi-Drug Resistant Organism (Verified Adverse Reaction, Unknown, ) MRSA PCR screen POSITIVE - 03/02/17 Past Medical History End-stage liver disease, hypertension Alcoholism Past Surgical History Known - patient unable to provide Reported Medications No reported medications prior to admission Current Medications Medications (Trade) Dose Ordered Sig/Mae Route Start Time Stop Time Status Last Admin (D50w (Vial) Inj) 25 ml UNSCH PRN IV PUSH 03/02/17 16:30 03/15/17 15:58 (Heparin Inj) 5,000 units Q8H SQ 03/09/17 14:00 03/22/17 05:54 (Ativan Inj) 0.5 mg Q3H PRN IV PUSH 03/09/17 14:45 03/17/17 23:37 (Lactulose Liq) 30 ml BID PO 03/12/17 21:00 03/22/17 08:12 (Xifaxan) 550 mg BID PO 03/20/17 09:00 03/21/17 20:15 (NS Flush) 2 ml UNSCH PRN IV FLUSH 03/20/17 07:30 (NS Flush) 2 ml BID IV FLUSH 03/20/17 09:00 03/21/17 20:15 (Morphine Inj) 2 mg Q2H PRN IV 03/20/17 07:30 03/22/17 04:00 (Protonix Inj) 40 mg DAILY IV 03/20/17 09:00 03/22/17 08:12 (Tears Naturale Opth Soln) 1 drop TID EACH EYE 03/20/17 09:00 (Zofran Inj) 4 mg Q6H PRN IV 03/20/17 07:30 (Colace) 100 mg BID PO 03/20/17 09:00 03/20/17 21:49 Sennosides 17.2 mg 17.2 mg Q12H PRN PO 03/20/17 07:30 (Zosyn 4.5 Gm Premix) 100 ml @ 200 mls/hr Q8H IV 03/20/17 10:00 03/22/17 12:03 Mupirocin 1 applic 1 applic Taper BID EACH NARE 03/20/17 09:00 03/16/18 08:59 03/21/17 20:14 (1/2 NS 1000 ml Inj) 1,000 ml @ 125 mls/hr Q8H IV 03/21/17 13:45 03/22/17 08:58 Water 200 ml 200 ml Q6HR NG 03/21/17 14:45 03/22/17 12:00 (Thiamine Inj/NS Inj) 101 ml @ 101 mls/hr DAILY IV 03/23/17 09:00 Family History Unable to obtain to obtain family history based on patient's uncle state Substance Use Tobacco: Unable to obtain information Alcohol: Prior history shows 20 beers per day Prescription med abuse: Would take Xanax to help him sleep Illicits: Unable to obtain information Psychosocial History 61-year-old male with a long-standing history of alcohol abuse. Was shown in 2015, to possibly have been , however, is not . Current information indicates that he has one daughter, although there may be other children. They're aware unaware of at this time. He may originally be from [place], as he has a brother living. 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 Spiritual/Cultural Factors None reported Living Will: Never completed Health Care Surrogate: Never completed Durable Power of Assisted Living Director: Never completed Health Care Surrogate(s): There is no designation of Healthcare Services at this point in time. Decision- making may fall to his daughter, Amie if there are no other children. However, Amie may be currently incarcerated and will be necessary to go to the snf system to allow her to make consent. Physical Exam Vital Signs Date Time Temp Pulse Resp B/P Pulse Ox O2 Delivery O2 Flow Rate FiO2 03/22/17 12:00 96 Nasal Cannula 4.00 03/22/17 12:00 99.2 88 20 95/38 96 03/22/17 12:00 108 03/22/17 10:00 108 03/22/17 08:00 108 03/22/17 08:00 99.2 119 22 111/70 96 03/22/17 08:00 96 Nasal Cannula 4.00 03/22/17 07:47 97 Nasal Cannula 2.00 03/22/17 06:00 110 03/22/17 04:00 107 03/22/17 04:00 98.8 107 22 116/71 100 03/22/17 04:00 100 Nasal Cannula 4.00 03/22/17 02:00 91 03/22/17 00:00 97 03/22/17 00:00 98 Nasal Cannula 4.00 03/22/17 00:00 100.2 97 28 104/64 98 03/21/17 22:00 102 03/21/17 20:28 94 Nasal Cannula 4.00 03/21/17 20:00 108 03/21/17 20:00 98.7 109 20 105/63 96 03/21/17 20:00 96 Nasal Cannula 4.00 03/21/17 18:00 106 03/21/17 16:02 95 Nasal Cannula 4.00 03/21/17 16:00 106 03/21/17 16:00 Nasal Cannula 4.00 03/21/17 16:00 98.8 113 16 108/66 95 03/21/17 03/22/17 19:00 07:00 Intake Total 636 ml 2511 ml Output Total 650 ml 700 ml Balance -14 ml 1811 ml IV Total 636 ml 1695 ml Tube Feeding 296 ml Other 520 ml Output Urine Total 650 ml 700 ml # Bowel Movements 1 2 Exam CONSTITUTIONAL/GENERAL: This is an thin, pale appearing patient, in no apparent distress. TUBES/LINES/DRAINS: Nasogastric Dobbhoff tube, urinary catheter SKIN: No jaundice, rashes, or lesions. No wounds seen anteriorly. Skin temperature appropriate. Not diaphoretic. HEAD: Atraumatic. Normocephalic. EYES: Pupils equal and round and reactive. Extraocular motions intact. No scleral icterus. No injection or drainage. ENT: Hearing appears to be normal . Nose without bleeding or purulent drainage. Mouth appears to be red with no obvious lesions. NECK: Trachea midline. Supple, nontender. No palpable thyroid enlargement or nodularity. CARDIOVASCULAR: Regular rate and rhythm without murmurs, gallops, or rubs. No JVD. Peripheral pulses symmetric. RESPIRATORY/CHEST: Symmetric, unlabored respirations. Coarse rhonchi anteriorly , diminished posterior bases GASTROINTESTINAL: Abdomen soft, non-tender, nondistended.hepato-splenomegaly, Bowel sounds present. GENITOURINARY: Without palpable bladder distension. Urinary catheter in place. MUSCULOSKELETAL: Extremities without clubbing, cyanosis, or edema. . No mottling or clubbing. LYMPHATICS: No palpable cervical or supraclavicular adenopathy. NEUROLOGICAL: Awake and alert. He is able to blink his eyes and will follow commands for that. He is able to move his fingers minimally on his right hand and is able to follow command for that as well. Remaining limbs are flaccid. Unable to determine degree of cognition PSYCHIATRIC: No obvious anxiety/depression. Appears calm at this time Diagnostic Tests Laboratory Laboratory Tests Test 03/20/17 03/20/17 03/20/17 03/20/17 06:07 06:18 08:04 09:25 Blood Gas Puncture Site RT BRACHIAL Blood Gas Patient Temperature 98.6 Blood Gas HCO3 23 mmol/L (22-26) Blood Gas Base Excess -1.4 mmol/L (-2-2) Blood Gas Oxygen Saturation 96 % (90-100) Arterial Blood pH 7.38 (7.380-7.420) Arterial Blood Partial 39 mmHg (38-42) Pressure CO2 Arterial Blood Partial 113 mmHg Pressure O2 (61-120) Arterial Blood Oxygen Content 15.5 Vol % (12.0-20.0) Arterial Blood 2.0 % (0-4) Carboxyhemoglobin Arterial Blood Methemoglobin 0.5 % (0-2) Blood Gas Hemoglobin 11.4 G/DL (12.0-16.0) Oxygen Delivery Device Venti Mask Blood Gas Inspired Oxygen 50 % White Blood Count 11.5 TH/MM3 (4.0-11.0) Red Blood Count 3.21 MIL/MM3 (4.50-5.90) Hemoglobin 11.3 GM/DL (13.0-17.0) Hematocrit 33.1 % (39.0-51.0) Mean Corpuscular Volume 103.3 FL (80.0-100.0) Mean Corpuscular Hemoglobin 35.3 PG (27.0-34.0) Mean Corpuscular Hemoglobin 34.2 % Concent (32.0-36.0) Red Cell Distribution Width 14.6 % (11.6-17.2) Platelet Count 329 TH/MM3 (150-450) Mean Platelet Volume 7.2 FL (7.0-11.0) Neutrophils (%) (Auto) 72.8 % (16.0-70.0) Lymphocytes (%) (Auto) 18.0 % (9.0-44.0) Monocytes (%) (Auto) 8.1 % (0.0-8.0) Eosinophils (%) (Auto) 0.5 % (0.0-4.0) Basophils (%) (Auto) 0.6 % (0.0-2.0) Neutrophils # (Auto) 8.4 TH/MM3 (1.8-7.7) Lymphocytes # (Auto) 2.1 TH/MM3 (1.0-4.8) Monocytes # (Auto) 0.9 TH/MM3 (0-0.9) Eosinophils # (Auto) 0.1 TH/MM3 (0-0.4) Basophils # (Auto) 0.1 TH/MM3 (0-0.2) CBC Comment DIFF FINAL Differential Comment Prothrombin Time 14.7 SEC (9.8-11.6) Prothromb Time International 1.3 RATIO Ratio Activated Partial 29.7 SEC Thromboplast Time (24.3-30.1) Fibrinogen 482 mg/dL (227-377) Sodium Level 145 MEQ/L (136-145) Potassium Level 4.1 MEQ/L (3.5-5.1) Chloride Level 111 MEQ/L (98-107) Carbon Dioxide Level 25.5 MEQ/L (21.0-32.0) Anion Gap 9 MEQ/L (5-15) Blood Urea Nitrogen 24 MG/DL (7-18) Creatinine 0.65 MG/DL (0.60-1.30) Estimat Glomerular Filtration 126 ML/MIN Rate (>89) Random Glucose 121 MG/DL (74-106) Lactic Acid Level 1.2 mmol/L (0.4-2.0) Calcium Level 9.3 MG/DL (8.5-10.1) Total Bilirubin 4.3 MG/DL (0.2-1.0) Aspartate Amino Transf 144 U/L (15-37) (AST/SGOT) Alanine Aminotransferase 101 U/L (12-78) (ALT/SGPT) Alkaline Phosphatase 188 U/L (45-117) Ammonia 54 MCMOL/L (11-32) Total Creatine Kinase 21 U/L (39-308) Troponin I LESS THAN 0.02 NG/ML (0.02-0.05) B-Type Natriuretic Peptide 83 PG/ML (0-100) Total Protein 8.3 GM/DL (6.4-8.2) Albumin 3.0 GM/DL (3.4-5.0) Vitamin B12 Level 1453 PG/ML (193-986) Folate 15.2 NG/ML (3.1-17.5) Blood Smear Pathologist Review Hepatitis A IgM Antibody NEGATIVE (NEGATIVE) Hepatitis B Surface Antigen NEGATIVE (NEGATIVE) Hepatitis B Core IgM Antibody NEGATIVE (NEGATIVE) Hepatitis C Antibody NEGATIVE (NEGATIVE) Test 03/21/17 03/21/17 03/21/17 03/21/17 00:58 06:15 15:42 17:48 Magnesium Level 2.2 MG/DL 2.4 MG/DL (1.5-2.5) (1.5-2.5) Total Creatine Kinase 18 U/L (39-308) 17 U/L (39-308) Troponin I LESS THAN 0.02 LESS THAN 0.02 NG/ML NG/ML (0.02-0.05) (0.02-0.05) White Blood Count 12.0 TH/MM3 (4.0-11.0) Red Blood Count 2.88 MIL/MM3 (4.50-5.90) Hemoglobin 10.4 GM/DL (13.0-17.0) Hematocrit 30.3 % (39.0-51.0) Mean Corpuscular Volume 105.2 FL (80.0-100.0) Mean Corpuscular Hemoglobin 36.3 PG (27.0-34.0) Mean Corpuscular Hemoglobin 34.5 % Concent (32.0-36.0) Red Cell Distribution Width 14.9 % (11.6-17.2) Platelet Count 297 TH/MM3 (150-450) Mean Platelet Volume 7.1 FL (7.0-11.0) Neutrophils (%) (Auto) 79.2 % (16.0-70.0) Lymphocytes (%) (Auto) 12.8 % (9.0-44.0) Monocytes (%) (Auto) 7.4 % (0.0-8.0) Eosinophils (%) (Auto) 0.2 % (0.0-4.0) Basophils (%) (Auto) 0.4 % (0.0-2.0) Neutrophils # (Auto) 9.5 TH/MM3 (1.8-7.7) Lymphocytes # (Auto) 1.5 TH/MM3 (1.0-4.8) Monocytes # (Auto) 0.9 TH/MM3 (0-0.9) Eosinophils # (Auto) 0.0 TH/MM3 (0-0.4) Basophils # (Auto) 0.0 TH/MM3 (0-0.2) CBC Comment DIFF FINAL Differential Comment Prothrombin Time 16.1 SEC (9.8-11.6) Prothromb Time International 1.4 RATIO Ratio Activated Partial 30.2 SEC Thromboplast Time (24.3-30.1) Fibrinogen 439 mg/dL (181-393) Sodium Level 150 MEQ/L 152 MEQ/L 151 MEQ/L (136-145) (136-145) (136-145) Potassium Level 3.3 MEQ/L (3.5-5.1) Chloride Level 117 MEQ/L (98-107) Carbon Dioxide Level 22.7 MEQ/L (21.0-32.0) Anion Gap 10 MEQ/L (5-15) Blood Urea Nitrogen 32 MG/DL (7-18) Creatinine 0.90 MG/DL (0.60-1.30) Estimat Glomerular Filtration 86 ML/MIN (>89) Rate Random Glucose 124 MG/DL (74-106) Lactic Acid Level 1.4 mmol/L (0.4-2.0) Calcium Level 8.8 MG/DL (8.5-10.1) Phosphorus Level 3.0 MG/DL (2.5-4.9) Total Bilirubin 3.5 MG/DL (0.2-1.0) Aspartate Amino Transf 111 U/L (15-37) (AST/SGOT) Alanine Aminotransferase 81 U/L (12-78) (ALT/SGPT) Alkaline Phosphatase 155 U/L (45-117) Ammonia 40 MCMOL/L (11-32) Total Protein 7.7 GM/DL (6.4-8.2) Albumin 2.7 GM/DL (3.4-5.0) Thyroid Stimulating Hormone 0.766 uIU/ML 3rd Gen (0.358-3.740) Test 03/22/17 03/22/17 02:41 09:48 Sodium Level 152 MEQ/L 148 MEQ/L (136-145) (136-145) Result Diagram: 03/21/17 0615 03/22/17 0948 Microbiology Microbiology Date/Time Procedure Status Source Growth 03/20/17 09:25 Aerobic Blood Culture - Preliminary Resulted Blood Peripheral NO GROWTH IN 2 DAYS 03/20/17 09:25 Anaerobic Blood Culture - Preliminary Resulted Blood Peripheral NO GROWTH IN 2 DAYS 03/20/17 13:35 Aerobic Blood Culture - Preliminary Resulted Blood Peripheral NO GROWTH IN 2 DAYS 03/20/17 13:35 Anaerobic Blood Culture - Preliminary Resulted Blood Peripheral NO GROWTH IN 2 DAYS Imaging Last 72 hours Impressions Chest X-Ray 03/21/17 0600 Signed Impressions: Service Date/Time: March 03:28 - CONCLUSION: Normal examination. Milo Muhammad MD CT Angiography 03/21/17 0000 Signed Impressions: Service Date/Time: March 00:33 - CONCLUSION: No evidence of pulmonary embolism is identified. Mild atelectasis left lung base. Fluid or phlegm within the trachea. Milo Muhammad MD Chest X-Ray 03/20/17 0000 Signed Impressions: Service Date/Time: Monday, March 20, 2017 07:04 - CONCLUSION: Improvement with no acute disease. Hamlet Harry MD FACR Brain MRI 03/20/17 0000 Signed Impressions: Service Date/Time: Monday, March 20, 2017 16:11 - CONCLUSION: Abnormal appearance to the ruthy with some extension into the cortical spinal tracts of the posterior thalamus was bilaterally. 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 Cheo Martínez MD Abdomen X-Ray 03/20/17 0000 Signed Impressions: Service Date/Time: Monday, March 20, 2017 18:12 - CONCLUSION: Tip of the Dobbhoff tube projecting towards the pylorus. Cheo Barrera Jr., MD Abdomen Ultrasound 03/20/17 0000 Signed Impressions: Service Date/Time: Monday, March 20, 2017 11:38 - CONCLUSION: 1. Hepatosplenomegaly without focal lesion. 2. Probable sludge within the lumen of the gallbladder. No intrahepatic duct. Cheo Martínez MD Patient/Family Conference Issues Discussed: * Palliative care role, purpose, approach * Additional medical, psychosocial, and spiritual history * Patients general health, functional status, and cognitive changes in the months leading up to the current hospitalization * Patient/family understanding of the current medical problems * Patient/family understanding of prognosis * Patients goals of care as best understood from advance directives and/or conversations and/or values * Current medical treatment options and benefits/burdens of those options * Likely scenarios comparing ongoing aggressive care with a transition to comfort measures only * Questions answered to the best of my ability * Palliative care contact information provided Assessment and Plan Disease Oriented Problem List: (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 Also unable to express discomfort (2) Dyspnea 0-10 Scale: Unable to quantify (remains with an nasal canula. However, he is highly prone to further aspiration and increasing shortness of breath) (3) Anxiety Comment: Given patient's history of drug and alcohol abuse. His only reasonable to assume he may have an underlying anxiety disorder. 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 Spiritual: No reported Legal: At this time we are aware of. One child who would be healthcare decision -maker due to [place] statutes. Reportedly she recently was arraigned this likely being processed in the [place] snf system. We will have to determine her location and contact information as current information is likely not valid Ethical issues impacting care: Important Contacts Amie Sandhu, daughter Phone number is for Guillermo Roberts friend [phone] (cell) She is currently in the [facility] skilled nursing. She has a pretrial on Saturday and after that we'll be transitioning to [facility] Prognosis Prognosis: Fair. In the absence of further respiratory failure, he will likely transition to a fdc facility. However, he does have end-stage liver disease. He has high risk for aspiration. He will need extensive neuro rehabilitation. Code Status: Full Code Plan Decision Maker: Amie Sandhu, only daughter Phone number is for Guillermo Roberts Fiance [phone] (cell) She is currently in the [facility] skilled nursing ([phone]) . She has a pretrial on Saturday and [facility] Code Status: Full code Family Discussion: Family unavailable at this time. Guillermo Roberts is a Fiance of Amie and has been most helpful. Brother in [place] - Shane Sandhu - phone? Aunt in [facility] - Joanna [phone] Symptoms: Dyspnea, pain, anxiety Palliative care phone number provided - will follow during hospital stay. Thank you for the opportunity to participate in the care of Mr. Sandhu. Attestation To help prompt me to consider important information that might be impacting today's encounter and assessment, information from prior notes written by myself or my colleagues may have been "brought forward" into today's note. My signature on this note, however, is an attestation that I personally performed the exam, history, and/or decision-making noted today, and, unless otherwise indicated, the interactions with patient, family, and staff as well as the review of records all occurred today. I also attest that the listed assessment and stated plan reflect my best clinical judgment today based on the combination of historical information, prior notes, and today's exam/ interactions. When time spent is documented, it refers only to time spent today by the signer, or if indicated, combined time spent today by collaborating physician/nurse practitioner. Rocío John Mar 22, 2017 15:14
[2017-03-22] MEDS ORDERED: ACETAMINOPHEN 1000 MG/100 ML VIAL IV ONE (20:15)
[2017-03-22] MEDS ORDERED: VANCOMYCIN INJ 1,000 MG in SODIUM CHLOR 0.9% 250 ML INJ 250 ML IV ONE ×2 (21:00→22:45)
--- NOTE | 2017-03-22 21:03 | RADRPT ---
EXAM DATE/TIME: 03/22/2017 20:15 [facility] COMPARISON: CHEST SINGLE AP, March 21, 2017, 3:28. INDICATIONS : Fever, chest congestion MEDICAL HISTORY : None. SURGICAL HISTORY : None. ENCOUNTER: Initial ACUITY: 1 day PAIN SCORE: Non-responsive. LOCATION: Bilateral chest FINDINGS: A single view of the chest demonstrates left lower lobe consolidation. Minimal right upper lobe densi ty. Heart normal in size. Osseous structures are intact. CONCLUSION: 1. Left lower lobe consolidation likely neurogenic pneumonia. 2. Minimal right upper lobe density. Logan Morgan MD on March 22, 2017 at 20:59 Board Certified Radiologist. This report was verified electronically.
[2017-03-22 21:13] LABS: ALKALINE PHOSPHATASE 114 U/L (45-117); ALT (GPT) 64 U/L (12-78); ANION GAP 10 MEQ/L (5-15); AST (GOT) 109 U/L (15-37); BICARBONATE 24.4 MEQ/L (21.0-32.0); BLOOD UREA NITROGEN 17 MG/DL (7-18); CHLORIDE 114 MEQ/L (98-107); GLOMERULAR FILTRATION RATE 100 ML/MIN (>89); SODIUM (NA) 148 MEQ/L (136-145); TOTAL BILIRUBIN ADULT 2.9 MG/DL (0.2-1.0)
[2017-03-22 21:14] LABS: AUTOMATED NEUTROPHIL # 9.4 TH/MM3 (1.8-7.7); BASOPHIL # 0.1 TH/MM3 (0-0.2); BASOPHIL % 0.5 % (0.0-2.0); EOSINOPHIL # 0.1 TH/MM3 (0-0.4); EOSINOPHIL % 0.5 % (0.0-4.0); HEMATOCRIT 27.3 % (39.0-51.0); HEMO FLAGS DIFF FINAL; LYMPH % 14.4 % (9.0-44.0); LYMPHOCYTE # 1.7 TH/MM3 (1.0-4.8); MEAN CELL VOLUME 111.4 FL (80.0-100.0); MEAN CORPUSCULAR HEMOGLOBIN 37.7 PG (27.0-34.0); MEAN CORPUSCULAR HGB CONC 33.8 % (32.0-36.0); NEUT % 78.6 % (16.0-70.0); PLATELET COUNT 195 TH/MM3 (150-450); RED BLOOD COUNT 2.45 MIL/MM3 (4.50-5.90)
[2017-03-22 21:16] LABS: POTASSIUM 2.9 MEQ/L (3.5-5.1)
[2017-03-22] MEDS: POTASSIUM CHLOR 20 MEQ PREMIX 100 ML IV SCH (22:00)
[2017-03-22 22:30] LABS: BACTERIA, URINE MOD /hpf; BLOOD, URINE LARGE (NEG); GLUCOSE,URINE NEG (NEG); KETONE, URINE TRACE mg/dL (NEG); NITRITE,URINE NEG (NEG); PH, URINE 5.5 (5.0-8.5); URINE COLOR DARK-YELLOW (YELLW/STRAW)
[2017-03-22 22:31] LABS: COMMENT (UR) CATH-CULTURE IND; CULTURE IF INDICATED CATH CULTURE IND
--- NOTE | 2017-03-22 22:33 | HHI.PR ---
Review/Management Diagnosis 1. Acute encephalopathy. Likely metabolic. Likely etiology is toxic metabolic with hyperammonemia, hyperbilirubinemia and abnormal electrolytes with severe hyponatremia, hepatic encephalopathy 2. Alcohol dependence 3. History of ethanol induced seizure withdrawal 4. Chronic benzodiazepine use. 5. 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 Plan 1. Neuro checks q. one hourly. 2. CIWA protocol thiamine, folate and multivitamin. 3. Ativan 0.25 mg for seizures lasting more than 3 minutes. 4. Seizure precautions. 5. Serial monitoring of electrolytes 6. EEG 7. Maintenance of electrolyte balance, slow correction of the sodium and potassium 8. DVT prophylaxis. Diagnosis/Plan: Subjective Subjective Comments Patient is more awake, and alert,still lethargic On 2L Oxygen nasal canula Noted occasional eye flutter No reported seizure activity MRI revealed a picture of central pontine demyelination Na 152, K 2.9 Active Medications Current Medications Medications (Trade) Dose Ordered Sig/Mae Route Start Time Stop Time Status Last Admin (D50w (Vial) Inj) 25 ml UNSCH PRN IV PUSH 03/02/17 16:30 03/15/17 15:58 (Heparin Inj) 5,000 units Q8H SQ 03/09/17 14:00 03/22/17 16:01 (Ativan Inj) 0.5 mg Q3H PRN IV PUSH 03/09/17 14:45 03/17/17 23:37 (Lactulose Liq) 30 ml BID PO 03/12/17 21:00 03/22/17 20:51 (Xifaxan) 550 mg BID PO 03/20/17 09:00 03/22/17 20:51 (NS Flush) 2 ml UNSCH PRN IV FLUSH 03/20/17 07:30 (NS Flush) 2 ml BID IV FLUSH 03/20/17 09:00 03/22/17 20:51 (Morphine Inj) 2 mg Q2H PRN IV 03/20/17 07:30 03/22/17 04:00 (Protonix Inj) 40 mg DAILY IV 03/20/17 09:00 03/22/17 08:12 (Tears Naturale Opth Soln) 1 drop TID EACH EYE 03/20/17 09:00 (Zofran Inj) 4 mg Q6H PRN IV 03/20/17 07:30 (Colace) 100 mg BID PO 03/20/17 09:00 03/22/17 20:51 Sennosides 17.2 mg 17.2 mg Q12H PRN PO 03/20/17 07:30 (Zosyn 4.5 Gm Premix) 100 ml @ 200 mls/hr Q8H IV 03/20/17 10:00 03/22/17 18:11 Mupirocin 1 applic 1 applic Taper BID EACH NARE 03/20/17 09:00 03/16/18 08:59 03/22/17 20:51 (1/2 NS 1000 ml Inj) 1,000 ml @ 125 mls/hr Q8H IV 03/21/17 13:45 03/22/17 08:58 Water 200 ml 200 ml Q6HR NG 03/21/17 14:45 03/22/17 18:00 Thiamine HCl 100 mg/Sodium Chloride 101 ml @ 101 mls/hr DAILY IV 03/23/17 09:00 (KCl 20 Meq Premix Inj) 100 ml @ 50 mls/hr Q2H IV 03/22/17 22:00 03/23/17 01:59 Allergies Allergies Coded Allergies PEANUTS (Unverified Allergy, Severe, 03/02/17) *MDRO Multi-Drug Resistant Organism (Verified Adverse Reaction, Unknown, ) Exam I&O / VS 03/21/17 03/21/17 03/22/17 15:00 23:00 07:00 Intake Total 636 ml 1040 ml 1471 ml Output Total 650 ml 450 ml 250 ml Balance -14 ml 590 ml 1221 ml IV Total 636 ml 848 ml 847 ml Tube Feeding 72 ml 224 ml Other 120 ml 400 ml Output Urine Total 650 ml 450 ml 250 ml # Bowel Movements 1 0 2 Vital Signs Date Time Temp Pulse Resp B/P Pulse Ox O2 Delivery O2 Flow Rate FiO2 03/22/17 21:38 99 Partial Rebreather 15.00 03/22/17 19:09 99 Partial Rebreather 15.00 03/22/17 18:00 Nasal Cannula 4.00 03/22/17 18:00 108 03/22/17 16:00 108 03/22/17 16:00 99.8 122 16 107/63 96 03/22/17 14:00 108 4/21/17 12:00 96 Nasal Cannula 4.00 03/22/17 12:00 99.2 88 20 95/38 96 03/22/17 12:00 108 03/22/17 10:00 108 03/22/17 08:00 108 03/22/17 08:00 99.2 119 22 111/70 96 03/22/17 08:00 96 Nasal Cannula 4.00 03/22/17 07:47 97 Nasal Cannula 2.00 03/22/17 06:00 110 03/22/17 04:00 107 03/22/17 04:00 98.8 107 22 116/71 100 03/22/17 04:00 100 Nasal Cannula 4.00 03/22/17 02:00 91 03/22/17 00:00 97 03/22/17 00:00 98 Nasal Cannula 4.00 03/22/17 00:00 100.2 97 28 104/64 98 Exam Comments GENERAL: The patient is lethargic, on 2 L Oxygen nasal canula. HEENT: There is an abrasion of the left side of the scalp, poor oral hygiene in the teeth. Jaundiced. Unable to assess hearing and vision. Conjunctival injection NECK: No JVD, no lymphadenopathy. No signs of meningeal irritation. RESPIRATORY: Coarse crackles with scattered wheezes CARDIOVASCULAR: sinus tachycardia ABDOMEN: Distended, nontender. No rigidity. MUSCULOSKELETAL: Peripheral pulses are present. No edema. NEUROLOGIC: The patient is lethargic, responds to verbal stimuli intermittently by opening eyes, squeezes fingers, moves extremities spontaneously, reflexes 1+ bilateral symmetrical. Plantars are bilateral, mute. Objective Radiology Results Last 72 hours Impressions Chest X-Ray 03/22/17 0000 Signed Impressions: Service Date/Time: Wednesday, March 22, 2017 20:15 - CONCLUSION: 1. Left lower lobe consolidation likely neurogenic pneumonia. 2. Minimal right upper lobe density. Logan Morgan MD Chest X-Ray 03/21/17 0600 Signed Impressions: Service Date/Time: March 03:28 - CONCLUSION: Normal examination. Milo Muhammad MD CT Angiography 03/21/17 0000 Signed Impressions: Service Date/Time: March 00:33 - CONCLUSION: No evidence of pulmonary embolism is identified. Mild atelectasis left lung base. Fluid or phlegm within the trachea. Milo Muhammad MD Chest X-Ray 03/20/17 0000 Signed Impressions: Service Date/Time: Monday, March 20, 2017 07:04 - CONCLUSION: Improvement with no acute disease. Hamlet Harry MD FACR Brain MRI 03/20/17 0000 Signed Impressions: Service Date/Time: Monday, March 20, 2017 16:11 - CONCLUSION: Abnormal appearance to the ruthy with some extension into the cortical spinal tracts of the posterior thalamus was bilaterally. 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 Cheo Martínez MD Abdomen X-Ray 03/20/17 0000 Signed Impressions: Service Date/Time: Monday, March 20, 2017 18:12 - CONCLUSION: Tip of the Dobbhoff tube projecting towards the pylorus. Cheo Barrera Jr., MD Abdomen Ultrasound 03/20/17 0000 Signed Impressions: Service Date/Time: Monday, March 20, 2017 11:38 - CONCLUSION: 1. Hepatosplenomegaly without focal lesion. 2. Probable sludge within the lumen of the gallbladder. No intrahepatic duct. Cheo Martínez MD Micro and Labs Laboratory Tests Test 03/22/17 03/22/17 03/22/17 03/22/17 02:41 09:48 14:47 20:29 Sodium Level 152 148 150 148 White Blood Count 12.0 Red Blood Count 2.45 Hemoglobin 9.2 Hematocrit 27.3 Mean Corpuscular Volume 111.4 Mean Corpuscular Hemoglobin 37.7 Mean Corpuscular Hemoglobin 33.8 Concent Red Cell Distribution Width 14.0 Platelet Count 195 Mean Platelet Volume 7.8 Neutrophils (%) (Auto) 78.6 Lymphocytes (%) (Auto) 14.4 Monocytes (%) (Auto) 6.0 Eosinophils (%) (Auto) 0.5 Basophils (%) (Auto) 0.5 Neutrophils # (Auto) 9.4 Lymphocytes # (Auto) 1.7 Monocytes # (Auto) 0.7 Eosinophils # (Auto) 0.1 Basophils # (Auto) 0.1 CBC Comment DIFF FINAL Differential Comment Potassium Level 2.9 Chloride Level 114 Carbon Dioxide Level 24.4 Anion Gap 10 Blood Urea Nitrogen 17 Creatinine 0.79 Estimat Glomerular Filtration 100 Rate Random Glucose 134 Lactic Acid Level 2.8 Calcium Level 8.2 Total Bilirubin 2.9 Aspartate Amino Transf 109 (AST/SGOT) Alanine Aminotransferase 64 (ALT/SGPT) Alkaline Phosphatase 114 Total Protein 6.9 Albumin 2.2 Date/Time Procedure Status Source Growth 03/22/17 20:29 Aerobic Blood Culture Received Blood Peripheral Pending 03/22/17 20:29 Anaerobic Blood Culture Received Blood Peripheral Pending 03/20/17 13:35 Aerobic Blood Culture - Preliminary Resulted Blood Peripheral NO GROWTH IN 2 DAYS 03/20/17 13:35 Anaerobic Blood Culture - Preliminary Resulted Blood Peripheral NO GROWTH IN 2 DAYS Susy Mazariegos MD Mar 22, 2017 22:33
[2017-03-22] MEDS ORDERED: Vancomycin Consult Pharmacy 1 EA OTHER SCH (22:45)
[2017-03-23] VITALS (15 sets, daily range): BP systolic 89–111; BP diastolic 61–74; PULSE 96–129; RESP 22–26; TEMP 99.3–102.2; O2SAT 92–100
[2017-03-23] MEDS: POTASSIUM CHLOR 20 MEQ PREMIX 100 ML IV SCH ×3 (00:40→22:25)
[2017-03-23] MEDS: CEFEPIME INJ 2,000 MG in SODIUM CHLORIDE 0.9% INJ 100 ML IV SCH ×5 (00:59→23:45)
[2017-03-23] MEDS: RESP: ALBUTEROL 2.5 MG/IPRATROPIUM 0.5 MG NEB (SCH) INH ×2 (03:21→08:37)
[2017-03-23] MEDS: SODIUM CHLOR 0.45% 1000 ML INJ 1,000 ML IV SCH ×3 (03:42→13:59)
[2017-03-23 03:59] LABS: LACTIC ACID GHOST NOT REPORTABLE
[2017-03-23] MEDS: HEPARIN SODIUM - SQ 10,000 UNITS/ML VIAL SQ SCH ×3 (05:15→22:52)
[2017-03-23] MEDS: FREE WATER NG SCH ×5 (05:15→23:45)
[2017-03-23] MEDS: MORPHINE SULFATE 4 MG/ML INJ IV PRN (05:15)
[2017-03-23] MEDS: INSULIN NovoLIN REGULAR SUPPLEMENTAL SCALE SQ SCH ×4 (06:54→20:41)
[2017-03-23] MEDS: SODIUM CHLORIDE 0.9% FLUSH 10 ML FLUSH IV FLUSH SCH ×2 (09:00→20:13)
[2017-03-23] MEDS: ARTIFICIAL TEARS OPTH SOLN 15 ML BTL EACH EYE SCH ×3 (09:00→18:00)
[2017-03-23] MEDS: DOCUSATE SODIUM 100 MG CAP PO SCH ×2 (09:12→20:13)
[2017-03-23] MEDS: PANTOPRAZOLE SODIUM 40 MG VIAL IV SCH (09:12)
[2017-03-23] MEDS: RIFAXIMIN 550 MG TAB PO SCH ×2 (09:12→20:13)
[2017-03-23] MEDS: MUPIROCIN 2% OINT 1 APPLIC/GM SYR EACH NARE SCH ×2 (09:12→20:12)
[2017-03-23] MEDS: THIAMINE INJ 100 MG in SODIUM CHLORIDE 0.9% INJ 100 ML IV SCH (09:13)
[2017-03-23] MEDS: LACTULOSE SYRUP 20 GM/30 ML CUP PO SCH ×2 (09:13→20:12)
[2017-03-23] MEDS: VANCOMYCIN 1,000 MG/NS 250 ML IV SCH ×4 (11:00→22:53)
[2017-03-23 12:00] LABS: BICARBONATE 23.7 MEQ/L (21.0-32.0); POTASSIUM 3.1 MEQ/L (3.5-5.1)
--- NOTE | 2017-03-23 13:28 | HHI.PR ---
Review/Management Diagnosis 1. Acute encephalopathy. Likely metabolic. Likely etiology is toxic metabolic with hyperammonemia, hyperbilirubinemia and abnormal electrolytes with severe hyponatremia, hepatic encephalopathy 2. Alcohol dependence 3. History of ethanol induced seizure withdrawal 4. Chronic benzodiazepine use. 5. 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 Plan 1. Neuro checks q. one hourly. 2. CIWA protocol thiamine, folate and multivitamin. 3. Ativan 0.25 mg for seizures lasting more than 3 minutes. 4. Seizure precautions. 5. Serial monitoring of electrolytes 6. EEG 7. Maintenance of electrolyte balance, slow correction of the sodium and potassium 8. DVT prophylaxis. Diagnosis/Plan: Daily Summary 03/23 neuro coverage seen with RN this am, appears stable, follows simple commands, moves 4 4limbs grossly equally, gen weakness, severe some resp distress support and nutrition, vitamins Subjective Subjective Comments No seizures Active Medications Current Medications Medications (Trade) Dose Ordered Sig/Mae Route Start Time Stop Time Status Last Admin (D50w (Vial) Inj) 25 ml UNSCH PRN IV PUSH 03/02/17 16:30 03/15/17 15:58 (Heparin Inj) 5,000 units Q8H SQ 03/09/17 14:00 03/23/17 05:15 (Ativan Inj) 0.5 mg Q3H PRN IV PUSH 03/09/17 14:45 03/17/17 23:37 (Lactulose Liq) 30 ml BID PO 03/12/17 21:00 03/23/17 09:13 (Xifaxan) 550 mg BID PO 03/20/17 09:00 03/23/17 09:12 (NS Flush) 2 ml UNSCH PRN IV FLUSH 03/20/17 07:30 (NS Flush) 2 ml BID IV FLUSH 03/20/17 09:00 03/23/17 09:00 (Morphine Inj) 2 mg Q2H PRN IV 03/20/17 07:30 03/23/17 05:15 (Protonix Inj) 40 mg DAILY IV 03/20/17 09:00 03/23/17 09:12 (Tears Naturale Opth Soln) 1 drop TID EACH EYE 03/20/17 09:00 03/23/17 09:00 (Zofran Inj) 4 mg Q6H PRN IV 03/20/17 07:30 (Colace) 100 mg BID PO 03/20/17 09:00 03/23/17 09:12 (Senokot) 17.2 mg Q12H PRN PO 03/20/17 07:30 Mupirocin 1 applic 1 applic Taper BID EACH NARE 03/20/17 09:00 03/16/18 08:59 03/23/17 09:12 (1/2 NS 1000 ml Inj) 1,000 ml @ 125 mls/hr Q8H IV 03/21/17 13:45 03/23/17 03:42 Water 200 ml 200 ml Q6HR NG 03/21/17 14:45 03/23/17 05:15 Thiamine HCl 100 mg/Sodium Chloride 101 ml @ 101 mls/hr DAILY IV 03/23/17 09:00 03/23/17 09:13 Cefepime HCl 2000 mg/Sodium Chloride 100 ml @ 200 mls/hr Q8H IV 03/22/17 00:00 03/23/17 09:16 Pharmacy Profile Note 0 ml @ 0 mls/hr UNSCH OTHER 03/22/17 22:45 (Vancomycin Inj/ NS 250 ml Inj) 250 ml @ 250 mls/hr Q12H IV 03/23/17 11:00 Miscellaneous Information SPECIFIC LAB TO BE [facility]OLD[facility]... ONCE ONCE .XX 03/24/17 10:45 03/24/17 10:46 Allergies Allergies Coded Allergies PEANUTS (Unverified Allergy, Severe, 03/02/17) *MDRO Multi-Drug Resistant Organism (Verified Adverse Reaction, Unknown, ) Exam I&O / VS 03/22/17 03/22/17 03/23/17 15:00 23:00 07:00 Intake Total 1942 ml 1535 ml 2210 ml Output Total 600 ml 312 ml 625 ml Balance 1342 ml 1223 ml 1585 ml Intake Oral 0 ml IV Total 1071 ml 954 ml 1412 ml Tube Feeding 671 ml 431 ml 398 ml Other 200 ml 150 ml 400 ml Output Urine Total 600 ml 312 ml 325 ml Stool Total 300 ml # Bowel Movements 1 Vital Signs Date Time Temp Pulse Resp B/P Pulse Ox O2 Delivery O2 Flow Rate FiO2 03/23/17 08:40 99 Partial Rebreather 15.00 03/23/17 08:00 94 Partial Non-Rebreather 12.00 Nasal Cannula 03/23/17 08:00 112 03/23/17 08:00 100.3 112 26 111/63 94 03/23/17 06:00 103 03/23/17 05:20 24 03/23/17 04:00 97 03/23/17 04:00 100 Partial Non-Rebreather 12.00 Nasal Cannula 03/23/17 04:00 99.5 97 24 89/61 100 03/23/17 02:00 96 03/23/17 00:00 99.3 108 26 103/64 100 03/23/17 00:00 100 Partial Non-Rebreather 12.00 Nasal Cannula 03/23/17 00:00 108 03/22/17 22:00 111 03/22/17 21:38 99 Partial Rebreather 15.00 03/22/17 20:00 118 03/22/17 20:00 103.0 118 40 105/71 97 03/22/17 20:00 97 Partial Non-Rebreather 12.00 Nasal Cannula 03/22/17 19:09 99 Partial Rebreather 15.00 03/22/17 18:00 Nasal Cannula 4.00 03/22/17 18:00 108 03/22/17 16:00 108 03/22/17 16:00 99.8 122 16 107/63 96 03/22/17 14:00 108 Objective Micro and Labs Laboratory Tests Test 03/22/17 03/22/17 03/22/17 03/23/17 14:47 20:29 20:45 01:55 Sodium Level 150 148 White Blood Count 12.0 Red Blood Count 2.45 Hemoglobin 9.2 Hematocrit 27.3 Mean Corpuscular Volume 111.4 Mean Corpuscular Hemoglobin 37.7 Mean Corpuscular Hemoglobin 33.8 Concent Red Cell Distribution Width 14.0 Platelet Count 195 Mean Platelet Volume 7.8 Neutrophils (%) (Auto) 78.6 Lymphocytes (%) (Auto) 14.4 Monocytes (%) (Auto) 6.0 Eosinophils (%) (Auto) 0.5 Basophils (%) (Auto) 0.5 Neutrophils # (Auto) 9.4 Lymphocytes # (Auto) 1.7 Monocytes # (Auto) 0.7 Eosinophils # (Auto) 0.1 Basophils # (Auto) 0.1 CBC Comment DIFF FINAL Differential Comment Potassium Level 2.9 Chloride Level 114 Carbon Dioxide Level 24.4 Anion Gap 10 Blood Urea Nitrogen 17 Creatinine 0.79 Estimat Glomerular Filtration 100 Rate Random Glucose 134 Lactic Acid Level 2.8 2.3 Calcium Level 8.2 Total Bilirubin 2.9 Aspartate Amino Transf 109 (AST/SGOT) Alanine Aminotransferase 64 (ALT/SGPT) Alkaline Phosphatase 114 Total Protein 6.9 Albumin 2.2 Urine Color DARK-YELLOW Urine Turbidity CLOUDY Urine pH 5.5 Urine Specific [place] 1.038 Urine Protein 30 Urine Glucose (UA) NEG Urine Ketones TRACE Urine Occult Blood LARGE Urine Nitrite NEG Urine Bilirubin SMALL Urine Urobilinogen 2.0 Urine Leukocyte Esterase LARGE Urine RBC 79 Urine WBC 3 Urine WBC Clumps MANY Urine Bacteria MOD Microscopic Urinalysis Comment CATH-CULTURE IND Test 03/23/17 03/23/17 04:10 11:21 Lactic Acid Level 2.8 Sodium Level 145 Potassium Level 3.1 Chloride Level 112 Carbon Dioxide Level 23.7 Anion Gap 9 Blood Urea Nitrogen 14 Creatinine 0.57 Estimat Glomerular Filtration 146 Rate Random Glucose 141 Calcium Level 8.0 Date/Time Procedure Status Source Growth 03/22/17 20:45 Urine Culture - Preliminary Resulted Urine Clean Catch NO GROWTH IN 24 HOURS. 03/22/17 20:29 Aerobic Blood Culture - Preliminary Resulted Blood Peripheral NO GROWTH IN 1 DAY 03/22/17 20:29 Anaerobic Blood Culture - Preliminary Resulted Blood Peripheral NO GROWTH IN 1 DAY Sho Garrison MD Mar 23, 2017 13:28
--- NOTE | 2017-03-23 14:00 | HHI.PR ---
Subjective Remarks Follow-up ODS 03/22/17-patient seen and examined, lethargic and currently on nasal cannula 2 L oxygen. Sodium 152. Nothing by mouth with tube feeding place. 03/23/17-patient seen and examined. Lethargic. Responding only to simple commands. No complaints. O2 requirement increased from yesterday. Now on rebreather at 15L. Lactic acid 2.8 this AM. Objective Vitals Vital Signs Date Time Temp Pulse Resp B/P Pulse Ox O2 Delivery O2 Flow Rate FiO2 03/23/17 08:40 99 Partial Rebreather 15.00 03/23/17 08:00 94 Partial Non-Rebreather 12.00 Nasal Cannula 03/23/17 08:00 112 03/23/17 08:00 100.3 112 26 111/63 94 03/23/17 06:00 103 03/23/17 05:20 24 03/23/17 04:00 97 03/23/17 04:00 100 Partial Non-Rebreather 12.00 Nasal Cannula 03/23/17 04:00 99.5 97 24 89/61 100 03/23/17 02:00 96 03/23/17 00:00 99.3 108 26 103/64 100 03/23/17 00:00 100 Partial Non-Rebreather 12.00 Nasal Cannula 03/23/17 00:00 108 03/22/17 22:00 111 03/22/17 21:38 99 Partial Rebreather 15.00 03/22/17 20:00 118 03/22/17 20:00 103.0 118 40 105/71 97 03/22/17 20:00 97 Partial Non-Rebreather 12.00 Nasal Cannula 03/22/17 19:09 99 Partial Rebreather 15.00 03/22/17 18:00 Nasal Cannula 4.00 03/22/17 18:00 108 03/22/17 16:00 108 03/22/17 16:00 99.8 122 16 107/63 96 03/22/17 14:00 108 I/O 03/22/17 03/22/17 03/22/17 03/23/17 03/23/17 03/23/17 07:00 15:00 23:00 07:00 15:00 23:00 Intake Total 1471 ml 1942 ml 1535 ml 2210 ml Output Total 250 ml 600 ml 312 ml 625 ml Balance 1221 ml 1342 ml 1223 ml 1585 ml Intake Oral 0 ml IV Total 847 ml 1071 ml 954 ml 1412 ml Tube Feeding 224 ml 671 ml 431 ml 398 ml Other 400 ml 200 ml 150 ml 400 ml Output Urine Total 250 ml 600 ml 312 ml 325 ml Stool Total 300 ml # Bowel Movements 2 1 Result Diagram: 03/22/17202803/23/17 1121 Objective Remarks GENERAL: Ill-appearing. Lethargic. SKIN: Warm and dry. CARDIOVASCULAR: Regular rate and rhythm without murmurs, gallops, or rubs. RESPIRATORY: Breath sounds equal bilaterally. No accessory muscle use. Decreased breath sounds at the bases. Wet-sounding rales at bilateral bases. GASTROINTESTINAL: Abdomen soft, non-tender, nondistended. MUSCULOSKELETAL: No cyanosis, or edema. BACK: Nontender without obvious deformity. No CVA tenderness. 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 Status: Acute (3) Acute hypoxemic respiratory failure ICD Code: J96.01 Status: Acute (4) Hepatic encephalopathy ICD Code: K72.90 Status: Resolved (5) Hypokalemia ICD Code: E87.6 Status: Resolved (6) Lactic acidosis ICD Code: E87.2 Status: Resolved (7) Altered mental status ICD Code: R41.82 Status: Resolved (8) Elevated troponin ICD Code: R74.8 Status: Resolved (9) Hyponatremia ICD Code: E87.1 Status: Resolved (10) Liver disease ICD Code: K76.9 Status: Chronic Assessment and Plan 61-year-old man with Osmotic demyelination syndrome Acute toxic metabolic encephalopathy secondary to hyper ammonia/hypercarbic respiratory failure Alcohol dependence History of EtOH induced seizure withdrawal Chronic benzodiazepine use: -Currently on NS at 125 ml per hour and s/p DDAVP 0.5 mcg IVx1. DC IVF at this time, as below. -Serial sodium monitoring -Continue thiamine/folate and multivitamin. -palliative care consulted -Ativan to 0.5mg iv q3h prn for agitation -Morphine as needed for pain management Escherichia coli UTI 03/11 - completed therapy Aspiration Bacterial PNA? -s/p Zosyn/vancomycin 1 dose with aspiration likely -Zosyn DCed (03/20-03/22). Has been started on vancomycin and cefepime (03/23-). -lactic acid 2.8 this AM -concern for volume overload with IVF. Hold IVF at this time. Check stat CXR. Diuretics if evidence of pulmonary edema. -check repeat lactic acid, CMP, CBC at 1700 today -sputum cx -discussed with plasterer foreman. Will call for consult if ARF requiring intubation. Acute hypoxemic hypercapnic respiratory failure: -Currently on partial rebreather at 15L. -Incentive spirometry while awake -DuoNeb CANDACE q4 -add CPT Sinus tachycardia Systolic heart failure: -Echocardiogram 03/04 revealed EF 35-40%. Mild mR. Left atrium dilated. JANE 33 mmHg -Currently on normal saline 1/2 NS Acute Kidney Injury- resolved Rhabdomyolysis- resolved ODS-see neuro Accurate I's and O's Monitor urine output closely Follow BMP in a.m. Likely EtOH cirrhosis Hyperammonemia Hiatal hernia Sigmoid diverticulosis History of umbilical hernia repair: - Continue Xifaxan 550 twice a day/lactulose 30 twice a day - LFT is elevated. Ultrasound liver-hepatosplenomegaly - Continue IV Protonix - Tube feed Macrocytic anemia Leukocytosis: - No indications for transfusion of blood products at this time. PT and aPTT slightly elevated. Hyperglycemia of critical illness History of hypothyroidism: -SSI with Accu-Cheks 4 times a day before meals/at bedtime to maintain euglycemia History of old left clavicle fracture -PT/OT evaluate and treat Prophylaxis: GI - Protonix DVT - SCD/heparin subcutaneous Poor prognosis, palliative medicine consulted Total critical care time 35 minutes Discharge Planning Likely DC to SNF once medically stable Problem Qualifiers (1) Altered mental status: Qualified Code: R41.82 - Altered mental status, unspecified altered mental status type Samuel Vallejo MD R3 Mar 23, 2017 14:00
--- NOTE | 2017-03-23 15:22 | RADRPT ---
EXAM DATE/TIME: 03/23/2017 14:27 [facility] COMPARISON: CHEST SINGLE AP, March 22, 2017, 20:15. INDICATIONS : Shortness of breath. MEDICAL HISTORY : None. SURGICAL HISTORY : None. ENCOUNTER: Initial ACUITY: 1 day PAIN SCORE: Non-responsive. LOCATION: Bilateral chest FINDINGS: There is a feeding tube in place. It does appear to have a loop in the hypopharynx. The heart size is mildly enlarged. There is increased density identified at the bases bilaterally. Significant eff usions are not seen. There is chronic bony change seen at the left distal clavicle with calcificatio n at the coracoclavicular region presumably from prior trauma. CONCLUSION: 1. Feeding tube in place with what appears to be a loop in the hypopharynx. 2. Bibasilar areas of consolidation or atelectasis. Casper Vargas MD on March 23, 2017 at 15:14 Board Certified Radiologist. This report was verified electronically.
[2017-03-23] MEDS ORDERED: FUROSEMIDE 40 MG/4 ML VIAL IV PUSH ONE (15:45)
[2017-03-23] MEDS: RESP: ALBUTEROL 2.5 MG/IPRATROPIUM 0.5 MG NEB (SCH) NEB ×3 (16:00→23:29)
[2017-03-23] MEDS ORDERED: ACETAMINOPHEN 650 MG SUPP RECTAL PRN (17:15)
[2017-03-23] MEDS: ACETAMINOPHEN 325 MG TAB PO PRN (17:33)
[2017-03-23 18:55] LABS: AUTOMATED NEUTROPHIL # 8.5 TH/MM3 (1.8-7.7); BASOPHIL # 0.1 TH/MM3 (0-0.2); BASOPHIL % 0.7 % (0.0-2.0); EOSINOPHIL # 0.1 TH/MM3 (0-0.4); EOSINOPHIL % 0.6 % (0.0-4.0); HEMATOCRIT 23.7 % (39.0-51.0); HEMO FLAGS DIFF FINAL; LYMPH % 13.7 % (9.0-44.0); LYMPHOCYTE # 1.4 TH/MM3 (1.0-4.8); MEAN CELL VOLUME 116.3 FL (80.0-100.0); MEAN CORPUSCULAR HEMOGLOBIN 41.1 PG (27.0-34.0); MEAN CORPUSCULAR HGB CONC 35.3 % (32.0-36.0); MONO % 4.8 % (0.0-8.0); NEUT % 80.2 % (16.0-70.0); PLATELET COUNT 144 TH/MM3 (150-450); RED BLOOD COUNT 2.04 MIL/MM3 (4.50-5.90); WHITE BLOOD COUNT 10.6 TH/MM3 (4.0-11.0)
[2017-03-23 18:58] LABS: ALKALINE PHOSPHATASE 105 U/L (45-117); ALT (GPT) 60 U/L (12-78); ANION GAP 11 MEQ/L (5-15); AST (GOT) 114 U/L (15-37); BICARBONATE 23.9 MEQ/L (21.0-32.0); BLOOD UREA NITROGEN 13 MG/DL (7-18); CHLORIDE 108 MEQ/L (98-107); GLOMERULAR FILTRATION RATE 126 ML/MIN (>89); SODIUM (NA) 143 MEQ/L (136-145); TOTAL BILIRUBIN ADULT 2.2 MG/DL (0.2-1.0)
[2017-03-23 19:04] LABS: POTASSIUM 2.7 MEQ/L (3.5-5.1)
--- NOTE | 2017-03-23 19:06 | MG ---
cc: LUZ GARRISON M.D. Lab No: Date: 03/23/2017 Age: 61 Sex: M Race: REQUESTING: Dr. Mazariegos. HISTORY: An EEG was obtained on this 61-year-old patient with history of being lethargic and having garbled speech. History of a metabolic encephalopathy / alcohol. DESCRIPTION OF RECORD: This EEG is showing a mixture of theta with beta rhythms diffusely. There is occasional alpha and there are some delta rhythms as well. There is awake and asleep. Overall the tracing seems to be symmetrical and photic stimulation disclosed no change of significance. Hyperventilation was not performed. INTERPRETATION: Abnormal EEG because of generalized slowing suggesting a [id number] diffuse disturbance of cerebral function. No epileptiform features are present. Luz Garrison MD [facility] /6:04 PM /7:00 PM
[2017-03-23] MEDS ORDERED: POTASSIUM CHLORIDE 25 MEQ EFFERVESCENT TAB PO ONE (19:45)
[2017-03-23 21:04] LABS: MEAN CORPUSCULAR HGB CONC 36.1 % (32.0-36.0)
[2017-03-24] VITALS (13 sets, daily range): BP systolic 87–106; BP diastolic 52–70; PULSE 28–132; RESP 24–26; TEMP 98.1–100.8; O2SAT 90–100
[2017-03-24] MEDS: RESP: ALBUTEROL 2.5 MG/IPRATROPIUM 0.5 MG NEB (SCH) NEB ×6 (04:00→23:22)
[2017-03-24] MEDS: FREE WATER NG SCH ×3 (05:17→16:16)
[2017-03-24] MEDS: HEPARIN SODIUM - SQ 10,000 UNITS/ML VIAL SQ SCH ×3 (05:17→22:03)
[2017-03-24 06:26] LABS: ANION GAP 7 MEQ/L (5-15); AST (GOT) 102 U/L (15-37); BLOOD UREA NITROGEN 12 MG/DL (7-18); CHLORIDE 112 MEQ/L (98-107); GLOMERULAR FILTRATION RATE 203 ML/MIN (>89); POTASSIUM 3.2 MEQ/L (3.5-5.1); SODIUM (NA) 143 MEQ/L (136-145)
[2017-03-24 06:29] LABS: ALKALINE PHOSPHATASE 94 U/L (45-117); ALT (GPT) 56 U/L (12-78); TOTAL BILIRUBIN ADULT 2.6 MG/DL (0.2-1.0)
[2017-03-24] MEDS: INSULIN NovoLIN REGULAR SUPPLEMENTAL SCALE SQ SCH ×4 (06:33→20:05)
[2017-03-24 06:54] LABS: AUTOMATED NEUTROPHIL # 7.5 TH/MM3 (1.8-7.7); BASOPHIL % 0.5 % (0.0-2.0); EOSINOPHIL # 0.1 TH/MM3 (0-0.4); EOSINOPHIL % 0.8 % (0.0-4.0); HEMATOCRIT 23.4 % (39.0-51.0); LYMPH % 14.5 % (9.0-44.0); LYMPHOCYTE # 1.4 TH/MM3 (1.0-4.8); MEAN CELL VOLUME 112.8 FL (80.0-100.0); MEAN CORPUSCULAR HEMOGLOBIN 40.7 PG (27.0-34.0); MONO % 5.6 % (0.0-8.0); NEUT % 78.6 % (16.0-70.0); PLATELET COUNT 135 TH/MM3 (150-450); RED BLOOD COUNT 2.08 MIL/MM3 (4.50-5.90); RED CELL DISTRIBUTION WIDTH 13.8 % (11.6-17.2); WHITE BLOOD COUNT 9.5 TH/MM3 (4.0-11.0)
[2017-03-24 06:56] LABS: HEMO FLAGS AUTO DIFF
[2017-03-24] MEDS: ACETAMINOPHEN 325 MG TAB PO PRN ×3 (08:09→22:52)
[2017-03-24] MEDS: THIAMINE INJ 100 MG in SODIUM CHLORIDE 0.9% INJ 100 ML IV SCH (08:09)
[2017-03-24] MEDS: DOCUSATE SODIUM 100 MG CAP PO SCH ×2 (08:10→20:04)
[2017-03-24] MEDS: RIFAXIMIN 550 MG TAB PO SCH ×2 (08:10→20:04)
[2017-03-24] MEDS: CEFEPIME INJ 2,000 MG in SODIUM CHLORIDE 0.9% INJ 100 ML IV SCH ×2 (08:10→16:13)
[2017-03-24] MEDS: PANTOPRAZOLE SODIUM 40 MG VIAL IV SCH (08:10)
[2017-03-24] MEDS: LACTULOSE SYRUP 20 GM/30 ML CUP PO SCH ×2 (08:10→20:04)
[2017-03-24] MEDS: ARTIFICIAL TEARS OPTH SOLN 15 ML BTL EACH EYE SCH ×3 (08:11→16:16)
[2017-03-24] MEDS: MUPIROCIN 2% OINT 1 APPLIC/GM SYR EACH NARE SCH ×2 (08:11→20:04)
[2017-03-24] MEDS: SODIUM CHLORIDE 0.9% FLUSH 10 ML FLUSH IV FLUSH SCH ×2 (08:12→20:05)
[2017-03-24 09:28] LABS: PLATELET ESTIMATE SMEAR LOW (NORMAL); PLATELET MORPHOLOGY NORMAL (NORMAL); SCAN/DIFF AUTO DIFF CONFIRMED
--- NOTE | 2017-03-24 10:39 | HHI.PR ---
Subjective Remarks Patient seen and examined this morning. Continues to be febrile, with tachycardia and hypotension. He is on a nasal canula 6 L saturating at 99%. He is non verbal, but is able to squeeze my hand, and per nurse he responds to painful stimuli. He tracks appropriately. He does appear to have some increase work of breathing. He has a cough that sounds wet, although he is not able to expel any sputum. Objective Vital Signs Date Time Temp Pulse Resp B/P Pulse Ox O2 Delivery O2 Flow Rate FiO2 03/24/17 08:45 100 Partial Rebreather 15.00 03/24/17 08:00 94 Partial Non-Rebreather 03/24/17 08:00 100.8 104 26 97/65 95 03/24/17 08:00 104 03/24/17 06:00 110 03/24/17 04:00 100.5 108 25 106/70 100 03/24/17 04:00 108 03/24/17 04:00 Partial Non-Rebreather 50 03/24/17 02:00 110 03/24/17 00:00 109 03/24/17 00:00 100.7 109 26 97/65 100 03/24/17 00:00 96 Partial Non-Rebreather 03/23/17 22:05 98 Partial Rebreather 15.00 03/23/17 22:00 109 03/23/17 20:00 100.0 103 26 97/61 92 03/23/17 20:00 103 03/23/17 20:00 Nasal Cannula 4.00 03/23/17 19:56 96 Nasal Cannula 2.00 03/23/17 18:00 116 03/23/17 16:00 121 03/23/17 16:00 100.6 118 22 104/69 96 03/23/17 16:00 96 Nasal Cannula 4.00 03/23/17 14:00 129 03/23/17 12:00 98 Nasal Cannula 4.00 03/23/17 12:00 102.2 121 24 110/74 94 03/23/17 12:00 125 I/O 03/23/17 03/23/17 03/23/17 03/24/17 03/24/17 03/24/17 07:00 15:00 23:00 07:00 15:00 23:00 Intake Total 2210 ml 2388 ml 803 ml 1090 ml Output Total 625 ml 900 ml 1570 ml 575 ml Balance 1585 ml 1488 ml -767 ml 515 ml IV Total 1412 ml 1386 ml 803 ml 465 ml Tube Feeding 398 ml 552 ml 125 ml Other 400 ml 450 ml 500 ml Output Urine Total 325 ml 600 ml 1070 ml 325 ml Stool Total 300 ml 300 ml 500 ml 250 ml Result Diagram: 03/24/17 0507 03/24/17 0507 Imaging Last Impressions Chest X-Ray 03/23/17 0000 Signed Impressions: Service Date/Time: Thursday, March 23, 2017 14:27 - CONCLUSION: 1. Feeding tube in place with what appears to be a loop in the hypopharynx. 2. Bibasilar areas of consolidation or atelectasis. Casper Vargas MD CT Angiography 03/21/17 0000 Signed Impressions: Service Date/Time: March 00:33 - CONCLUSION: No evidence of pulmonary embolism is identified. Mild atelectasis left lung base. Fluid or phlegm within the trachea. Milo Muhammad MD Brain MRI 03/20/17 0000 Signed Impressions: Service Date/Time: Monday, March 20, 2017 16:11 - CONCLUSION: Abnormal appearance to the ruthy with some extension into the cortical spinal tracts of the posterior thalamus was bilaterally. 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 Cheo Martínez MD Abdomen X-Ray 03/20/17 0000 Signed Impressions: Service Date/Time: Monday, March 20, 2017 18:12 - CONCLUSION: Tip of the Dobbhoff tube projecting towards the pylorus. Cheo Barrera Jr., MD Abdomen Ultrasound 03/20/17 0000 Signed Impressions: Service Date/Time: Monday, March 20, 2017 11:38 - CONCLUSION: 1. Hepatosplenomegaly without focal lesion. 2. Probable sludge within the lumen of the gallbladder. No intrahepatic duct. Cheo Martínez MD Shoulder X-Ray 03/02/17 1404 Signed Impressions: Service Date/Time: Thursday, March 02, 2017 15:18 - CONCLUSION: No evidence of recent bony injury. Deformity of the lateral left clavicle suggests old healed trauma. Cheo Martínez MD Maxillofacial CT 03/02/17 1342 Signed Impressions: Service Date/Time: Thursday, March 02, 2017 14:52 - CONCLUSION: Negative CT of the facial bones. Cheo Martínez MD Head CT 03/02/17 1342 Signed Impressions: Service Date/Time: Thursday, March 02, 2017 14:52 - CONCLUSION: 1. Prominent scalp swelling left frontal and parietal region. No skull fracture seen. 2. Intracranial contents are intact without acute finding. Cheo Martínez MD Chest CT 03/02/17 1342 Signed Impressions: Service Date/Time: Thursday, March 02, 2017 15:04 - CONCLUSION: 1. Abnormal appearance of the lateral left clavicle suggesting a combination of acute and chronic bony injury. Fracture lucencies without bridging callus is seen the region of the coracoid process. 2. The lungs are clear. No evidence of pneumothorax. 3. Moderate size hiatus hernia. Cheo Martínez MD Cervical Spine CT 03/02/17 1342 Signed Impressions: Service Date/Time: Thursday, March 02, 2017 14:52 - CONCLUSION: Negative CT cervical spine. Cheo Martínez MD Abdomen/Pelvis CT 03/02/17 1342 Signed Impressions: Service Date/Time: Thursday, March 02, 2017 15:04 - CONCLUSION: Moderate size hiatus hernia. Scattered small sigmoid diverticula. Otherwise negative exam. Cheo Martínez MD Other Results GENERAL: alert, appears uncomfortable SKIN: Warm and dry. Nose: feeding tube in left nare CARDIOVASCULAR: Regular rate and rhythm without murmurs, gallops, or rubs. RESPIRATORY: Breath sounds equal bilaterally. No accessory muscle use. Decreased breath sounds at the bases with some rales on left bases. +Cough. GASTROINTESTINAL: Abdomen soft, non-tender, nondistended. Rectal tube draining liquid stool, urinary catheter in place, bag is full of blood tinged urine. MUSCULOSKELETAL: No cyanosis, or edema. BACK: Nontender without obvious deformity. No CVA tenderness. 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 Osmotic demyelination syndrome --Acute toxic metabolic encephalopathy secondary to hyper ammonia/hypercarbic respiratory failure --Alcohol dependence --History of EtOH induced seizure withdrawal --Chronic benzodiazepine use: -Serial sodium monitoring -Continue thiamine/folate and multivitamin. -palliative care is following the patient -Ativan to 0.5mg iv q3h prn for agitation -Morphine as needed for pain management 2. Escherichia coli UTI 03/11 - completed therapy 3. Aspiration Bacterial PNA? -s/p Zosyn/vancomycin 1 dose with aspiration likely -Zosyn DCed (03/20-03/22). Has been started on vancomycin and cefepime (03/23-). -lactic acid up trending (2.8-->3.2-->repeat this am pending) - the patient continues to be febrile despite broad spectrum abx, ID has been consulted to assist with abx -sputum cx ordered, blood cultures negative to date -previously discussed with tongue and groove machine setter. Will call for consult if ARF requiring intubation. 4. Acute hypoxemic hypercapnic respiratory failure: -Currently on partial rebreather at 15L. -Incentive spirometry while awake -DuoNeb CANDACE q4 -CPT - mucomyst added to breathing treatments today 5. Sinus tachycardia, Systolic heart failure: -Echocardiogram 03/04 revealed EF 35-40%. Mild mR. Left atrium dilated. JANE 33 mmHg 6. Acute Kidney Injury- resolved 7. Rhabdomyolysis- resolved 8. ODS-see neuro 9. Likely EtOH cirrhosis 10. Hyperammonemia 11. Hiatal hernia 12. Sigmoid diverticulosis 13. History of umbilical hernia repair: - Continue Xifaxan 550 twice a day/lactulose 30 twice a day - LFT is elevated. Ultrasound liver-hepatosplenomegaly - Continue IV Protonix - Tube feed 14. Macrocytic anemia - No indications for transfusion of blood products at this time. PT and aPTT slightly elevated. Prophylaxis: GI - Protonix DVT - SCD/heparin subcutaneous Poor prognosis, palliative medicine following Discharge Planning D/C to SNF when medically stable. Lindy Werner MD R3 Mar 24, 2017 10:39
[2017-03-24] MEDS ORDERED: PHARMACY ORDERED LAB ONE (10:45)
[2017-03-24] MEDS ORDERED: FUROSEMIDE 40 MG/4 ML VIAL IV PUSH ONE (11:15)
[2017-03-24] MEDS: RESP: ACETYLCYSTEINE 20% 30 ML NEB NEB SCH ×3 (11:34→21:28)
[2017-03-24] MEDS: POTASSIUM CHLOR 20 MEQ PREMIX 100 ML IV SCH ×2 (12:49→16:16)
--- NOTE | 2017-03-24 13:42 | PD.CONS ---
History of Present Illness Service Infectious disease Consult Requested By Dr Werner Reason for Consult Evaluate patient with pneumonia, assist with antibiotics Primary Care Physician No Primary Care Physician Diagnoses: History of Present Illness Patient seen and examined. Records reviewed. Patient is a 61-year-old male brought into the hospital by the neighbor after he was found laying down face on the floor. He appeared to be intoxicated when he was brought into the emergency room, and he was incontinent of urine. He was noted to have swelling on the left side of his face and found to have some abrasions in other parts of his body. He had multiple imaging studies which did not show any significant abnormality and or injury. He was found to have severe hyponatremia with a level of 99 as well as some other electrolyte abnormalities including hypokalemia and low phosphorus. He was hypotensive, requiring pressors, and was severely dehydrated and had elevated CPK. His electrolytes were corrected, and he was resuscitated, as well as had decrease in his CPK levels. There was no infection found. He then developed some alcohol withdrawal symptoms and he was treated appropriately for that. Patient had an echocardiogram which showed global hypokinesis with an ejection fraction of about 40%. He was initially in the intensive care unit, and he was transferred to the medical team on March 12. He had a Johns catheter in place and it was removed on March 11, but he develop urinary retention, and had reinsertion of the Johns on that same day. On March 19 the patient developed hypoxemia, and decreased level of consciousness, so he was transferred to the ICU for closer monitoring. He had some fevers at that time, and he was started on antibiotics, and given Zosyn and vancomycin. His initial chest x-ray were normal, but subsequent x-rays when he came hypoxemic showed some left base consolidation. Since March 22, patient's temperature have been more persistent. His white count is elevated. Patient also has been having liquid stool, but he is getting lactulose. He had a central line initially, and that has been removed. Patient currently is afebrile. His blood pressure is okay. He is tachycardic. He is awake, and follows commands. He also has a lot of liquid stool. Infectious disease consultation has been requested to evaluate the patient. Review of Systems ROS Limitations: Altered Mental Status Constitutional: COMPLAINS OF: Fever Eyes: DENIES: Eye pain Ears, nose, mouth, throat: COMPLAINS OF: Nasal discharge, DENIES: Throat pain , Ear Pain Respiratory: COMPLAINS OF: Cough, Shortness of breath Cardiovascular: DENIES: Chest pain Gastrointestinal: COMPLAINS OF: Abdominal pain, Diarrhea Psychiatric: COMPLAINS OF: Confusion Past Family Social History Allergies: Coded Allergies: PEANUTS (Unverified Allergy, Severe, 03/02/17) *MDRO Multi-Drug Resistant Organism (Verified Adverse Reaction, Unknown, ) MRSA PCR screen POSITIVE - 03/02/17 Past Medical History Alcohol abuse Past Surgical History None known Active Ordered Medications Tylenol Albuterol Mucomyst nebulizer Cefepime Colace Heparin Insulin Lactulose Ativan Morphine Zofran Protonix Potassium Rifaximin Senokot Thiamine Vancomycin Social History Known alcohol abuse No smoking No IV drug use Physical Exam Vital Signs Vital Signs Date Time Temp Pulse Resp B/P Pulse Ox O2 Delivery O2 Flow Rate FiO2 03/24/17 12:00 100.0 28 26 101/64 98 03/24/17 12:00 94 Partial Non-Rebreather 03/24/17 12:00 105 03/24/17 10:00 108 03/24/17 09:09 18 03/24/17 08:45 100 Partial Rebreather 15.00 03/24/17 08:00 94 Partial Non-Rebreather 03/24/17 08:00 100.8 104 26 97/65 95 03/24/17 08:00 104 03/24/17 06:00 110 03/24/17 04:00 100.5 108 25 106/70 100 03/24/17 04:00 108 03/24/17 04:00 Partial Non-Rebreather 50 03/24/17 02:00 110 03/24/17 00:00 109 03/24/17 00:00 100.7 109 26 97/65 100 03/24/17 00:00 96 Partial Non-Rebreather 03/23/17 22:05 98 Partial Rebreather 15.00 03/23/17 22:00 109 03/23/17 20:00 100.0 103 26 97/61 92 03/23/17 20:00 103 03/23/17 20:00 Nasal Cannula 4.00 03/23/17 19:56 96 Nasal Cannula 2.00 03/23/17 18:00 116 03/23/17 16:00 121 03/23/17 16:00 100.6 118 22 104/69 96 03/23/17 16:00 96 Nasal Cannula 4.00 03/23/17 14:00 129 Physical Exam GENERAL: This is a well-nourished, well-developed CM, awake, and focusing, looks chronically ill-appearing, not in respiratory distress. SKIN: Warm and dry. No generalized rash. Has some edema in his upper extremities. HEAD: Normocephalic. No temporal or scalp tenderness. He has to NG tube in place EYES: Pupils equal round and reactive. Extraocular motions intact. Mild scleral icterus. No scleral edema. No injection or drainage. ENT: Nose without bleeding, purulent drainage, has NGT in place. Very dry oral mucosa, poor dentition. NECK: Trachea midline. No JVD or lymphadenopathy. Supple, nontender, no meningeal signs. CARDIOVASCULAR: Regular rate and rhythm without murmurs, gallops, or rubs. Tachycardiic. RESPIRATORY: Has scattered rhonchi, decreased BS at bases, worse on R than on L. . GASTROINTESTINAL: Abdomen mildly distended, bowel sounds are present and normoactive, has diffuse abdominal tenderness, no guarding or rebound. MUSCULOSKELETAL: Lower extremities without clubbing, cyanosis, or edema. No joint effusion, or edema noted. No calf tenderness. NEUROLOGICAL: Awake and alert. Not talking, Equal hand manager law, moves both feet. No Babinski. : Johns cath in place with a lot of sediment LINE: PIV with no evidence of infection Laboratory Laboratory Tests Test 03/23/17 03/24/17 18:16 05:07 White Blood Count 10.6 9.5 Red Blood Count 2.04 2.08 Hemoglobin 8.4 8.4 Hematocrit 23.7 23.4 Mean Corpuscular Volume 116.3 112.8 Mean Corpuscular Hemoglobin 41.1 40.7 Mean Corpuscular Hemoglobin 35.3 36.1 Concent Red Cell Distribution Width 14.0 13.8 Platelet Count 144 135 Mean Platelet Volume 7.6 8.9 Neutrophils (%) (Auto) 80.2 78.6 Lymphocytes (%) (Auto) 13.7 14.5 Monocytes (%) (Auto) 4.8 5.6 Eosinophils (%) (Auto) 0.6 0.8 Basophils (%) (Auto) 0.7 0.5 Neutrophils # (Auto) 8.5 7.5 Lymphocytes # (Auto) 1.4 1.4 Monocytes # (Auto) 0.5 0.5 Eosinophils # (Auto) 0.1 0.1 Basophils # (Auto) 0.1 0.0 CBC Comment DIFF FINAL AUTO DIFF Differential Comment AUTO DIFF CONFIRMED Sodium Level 143 143 Potassium Level 2.7 3.2 Chloride Level 108 112 Carbon Dioxide Level 23.9 24.0 Anion Gap 11 7 Blood Urea Nitrogen 13 12 Creatinine 0.65 0.43 Estimat Glomerular Filtration 126 203 Rate Random Glucose 132 104 Lactic Acid Level 3.2 Calcium Level 7.9 8.2 Total Bilirubin 2.2 2.6 Aspartate Amino Transf 114 102 (AST/SGOT) Alanine Aminotransferase 60 56 (ALT/SGPT) Alkaline Phosphatase 105 94 Total Protein 6.4 6.4 Albumin 1.9 1.9 Platelet Estimate LOW Platelet Morphology Comment NORMAL Hematology Comments Date/Time Procedure Status Source Growth 03/22/17 20:45 Urine Culture - Final Complete Urine Clean Catch NO GROWTH IN 48 HOURS. 03/22/17 20:29 Aerobic Blood Culture - Preliminary Resulted Blood Peripheral NO GROWTH IN 2 DAYS 03/22/17 20:29 Anaerobic Blood Culture - Preliminary Resulted Blood Peripheral NO GROWTH IN 2 DAYS Result Diagram: 03/24/17 0507 03/24/17 0507 Imaging RADIOLOGY STUDIES/FILMS REVIEWED Chest X-Ray 03/23/17 0000 Signed Impressions: Service Date/Time: Thursday, March 23, 2017 14:27 - CONCLUSION: 1. Feeding tube in place with what appears to be a loop in the hypopharynx. 2. Bibasilar areas of consolidation or atelectasis. Casper Vargas MD CT Angiography 03/21/17 0000 Signed Impressions: Service Date/Time: March 00:33 - CONCLUSION: No evidence of pulmonary embolism is identified. Mild atelectasis left lung base. Fluid or phlegm within the trachea. Milo Muhammad MD Brain MRI 03/20/17 0000 Signed Impressions: Service Date/Time: Monday, March 20, 2017 16:11 - CONCLUSION: Abnormal appearance to the ruthy with some extension into the cortical spinal tracts of the posterior thalamus was bilaterally. 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 Cheo Martínez MD Abdomen X-Ray 03/20/17 0000 Signed Impressions: Service Date/Time: Monday, March 20, 2017 18:12 - CONCLUSION: Tip of the Dobbhoff tube projecting towards the pylorus. Cheo Barrera Jr., MD Abdomen Ultrasound 03/20/17 0000 Signed Impressions: Service Date/Time: Monday, March 20, 2017 11:38 - CONCLUSION: 1. Hepatosplenomegaly without focal lesion. 2. Probable sludge within the lumen of the gallbladder. No intrahepatic duct. Cheo Martínez MD Shoulder X-Ray 03/02/17 1404 Signed Impressions: Service Date/Time: Thursday, March 02, 2017 15:18 - CONCLUSION: No evidence of recent bony injury. Deformity of the lateral left clavicle suggests old healed trauma. Cheo Martínez MD Maxillofacial CT 03/02/17 1342 Signed Impressions: Service Date/Time: Thursday, March 02, 2017 14:52 - CONCLUSION: Negative CT of the facial bones. Cheo Martínez MD Head CT 03/02/17 1342 Signed Impressions: Service Date/Time: Thursday, March 02, 2017 14:52 - CONCLUSION: 1. Prominent scalp swelling left frontal and parietal region. No skull fracture seen. 2. Intracranial contents are intact without acute finding. Cheo Martínez MD Chest CT 03/02/17 1342 Signed Impressions: Service Date/Time: Thursday, March 02, 2017 15:04 - CONCLUSION: 1. Abnormal appearance of the lateral left clavicle suggesting a combination of acute and chronic bony injury. Fracture lucencies without bridging callus is seen the region of the coracoid process. 2. The lungs are clear. No evidence of pneumothorax. 3. Moderate size hiatus hernia. Cheo Martínez MD Cervical Spine CT 03/02/17 1342 Signed Impressions: Service Date/Time: Thursday, March 02, 2017 14:52 - CONCLUSION: Negative CT cervical spine. Cheo Martínez MD Abdomen/Pelvis CT 03/02/17 1342 Signed Impressions: Service Date/Time: Thursday, March 02, 2017 15:04 - CONCLUSION: Moderate size hiatus hernia. Scattered small sigmoid diverticula. Otherwise negative exam. Cheo Martínez MD Assessment and Plan Assessment and Plan IMPRESSION Sepsis syndrome, developed in the hospital, source? - possible PNA - has diarrhea, and abdominal tenderness on exam, R/O C diff - (+) UA Known ETOH abuse Encephalopathy, likely has underlying problem due to ETOHism, worsen by sepsis RECOMMENDATION Check stool for C diff Follow C/S Continue Cefepime Change Vanco to Zyvox - follow CBC Add Flagyl and Lactinex Follow temps Monitor progress I will adjust Abx once workup completes and C/S available I will follow along with you Thank you for this consultation Umm Lisa MD Mar 24, 2017 13:42
[2017-03-24] MEDS: metroNIDAZOLE 500 MG TAB PO SCH ×2 (16:14→22:03)
[2017-03-24] MEDS: LINEZOLID 600 MG PREMIX 300 ML IV SCH (16:14)
[2017-03-24] MEDS: LACTOBACILLUS ACIDOPHILUS TAB PO SCH (16:14)
[2017-03-24] MEDS: LORazepam 2 MG/ML VIAL IV PUSH PRN (20:05)
[2017-03-24] MEDS ORDERED: SODIUM CHLOR 0.9% 1000 ML INJ 2,000 ML IV ONE (23:15)
[2017-03-25] VITALS (16 sets, daily range): BP systolic 80–109; BP diastolic 55–71; PULSE 109–145; RESP 18–32; TEMP 98.7–103; O2SAT 94–100
[2017-03-25] MEDS: LORazepam 2 MG/ML VIAL IV PUSH PRN ×2 (00:07→03:22)
[2017-03-25] MEDS: CEFEPIME INJ 2,000 MG in SODIUM CHLORIDE 0.9% INJ 100 ML IV SCH ×2 (00:07→08:00)
[2017-03-25 00:12] LABS: BLOOD GAS BASE EXCESS -0.9 mmol/L (-2-2); BLOOD GAS CARBOXYHEMOGLOBIN 2.2 % (0-4); BLOOD GAS HCO3 22 mmol/L (22-26); BLOOD GAS METHEMOGLOBIN 0.8 % (0-2); BLOOD GAS O2 HGB SATURATION 94 % (90-100); BLOOD GAS OXYGEN CONTENT 12.7 Vol % (12.0-20.0); BLOOD GAS PCO2 27 mmHg (38-42); BLOOD GAS PO2 76 mmHg (61-120); BLOOD GAS TOTAL HGB 9.6 G/DL (12.0-16.0); TEMP CORR TO 98.6
[2017-03-25 00:31] LABS: CRITICAL VALUE YES
[2017-03-25 00:32] LABS: DRAW SITE LT RADIAL; FIO2 100 %; LITER FLOW 15 L/M; NUMBER OF ARTERIAL PUNCTURES 1; STAT YES; ULNAR PULSE PRESENT
[2017-03-25] MEDS: LINEZOLID 600 MG PREMIX 300 ML IV SCH ×2 (03:26→18:06)
[2017-03-25] MEDS: ACETAMINOPHEN 325 MG TAB PO PRN ×2 (03:32→11:16)
[2017-03-25] MEDS: RESP: ALBUTEROL 2.5 MG/IPRATROPIUM 0.5 MG NEB (SCH) NEB ×6 (03:48→23:41)
[2017-03-25] MEDS: RESP: ACETYLCYSTEINE 20% 30 ML NEB NEB SCH ×4 (03:48→19:30)
[2017-03-25 05:12] LABS: BICARBONATE 22.8 MEQ/L (21.0-32.0); POTASSIUM 3.8 MEQ/L (3.5-5.1)
[2017-03-25] MEDS: metroNIDAZOLE 500 MG TAB PO SCH ×3 (05:12→20:54)
[2017-03-25] MEDS: FREE WATER NG SCH ×4 (05:12→18:07)
[2017-03-25] MEDS: HEPARIN SODIUM - SQ 10,000 UNITS/ML VIAL SQ SCH ×3 (05:12→20:54)
[2017-03-25 06:02] LABS: CALCIUM-PROTEIN CORRECTED 7.9 MG/DL (8.5-10.1)
[2017-03-25 08:11] LABS: AUTOMATED NEUTROPHIL # 3.7 TH/MM3 (1.8-7.7); BASOPHIL % 0.6 % (0.0-2.0); EOSINOPHIL % 0.6 % (0.0-4.0); HEMATOCRIT 27.2 % (39.0-51.0); LYMPH % 15.9 % (9.0-44.0); LYMPHOCYTE # 0.8 TH/MM3 (1.0-4.8); MEAN CELL VOLUME 115.8 FL (80.0-100.0); MEAN CORPUSCULAR HEMOGLOBIN 39.8 PG (27.0-34.0); MEAN CORPUSCULAR HGB CONC 34.4 % (32.0-36.0); NEUT % 71.9 % (16.0-70.0); PLATELET COUNT 105 TH/MM3 (150-450); RED BLOOD COUNT 2.35 MIL/MM3 (4.50-5.90); RED CELL DISTRIBUTION WIDTH 14.5 % (11.6-17.2); WHITE BLOOD COUNT 5.1 TH/MM3 (4.0-11.0)
[2017-03-25 08:12] LABS: HEMO FLAGS AUTO DIFF
[2017-03-25 08:38] LABS: BANDS 9 % (0-6); CORRECTED NUCLEATED RBC 1 /100 WBC (0-0); EOSINOPHILS 1 % (0-4); NEUTROPHIL # MANUAL DIFF 3.5 TH/MM3 (1.8-7.7); POLYS (SEG NEUTROPHILS) 60 % (16-70); WBC DIFF SAMPLE 100
[2017-03-25 08:39] LABS: PLATELET ESTIMATE SMEAR LOW (NORMAL); PLATELET MORPHOLOGY NORMAL (NORMAL); SCAN/DIFF FINAL DIFF MANUAL
[2017-03-25] MEDS: ARTIFICIAL TEARS OPTH SOLN 15 ML BTL EACH EYE SCH ×3 (09:00→18:00)
[2017-03-25] MEDS: LACTOBACILLUS ACIDOPHILUS TAB PO SCH ×3 (09:00→18:00)
[2017-03-25] MEDS: LACTULOSE SYRUP 20 GM/30 ML CUP PO SCH ×2 (09:00→20:52)
[2017-03-25] MEDS: DOCUSATE SODIUM 100 MG CAP PO SCH ×2 (09:00→20:53)
[2017-03-25] MEDS: RIFAXIMIN 550 MG TAB PO SCH ×2 (09:00→20:53)
[2017-03-25] MEDS: THIAMINE INJ 100 MG in SODIUM CHLORIDE 0.9% INJ 100 ML IV SCH (09:00)
[2017-03-25] MEDS: MUPIROCIN 2% OINT 1 APPLIC/GM SYR EACH NARE SCH (09:00)
[2017-03-25] MEDS: PANTOPRAZOLE SODIUM 40 MG VIAL IV SCH (09:00)
[2017-03-25] MEDS: SODIUM CHLORIDE 0.9% FLUSH 10 ML FLUSH IV FLUSH SCH ×2 (09:00→20:53)
--- NOTE | 2017-03-25 09:07 | HHI.PR ---
Subjective Remarks Patient is nonverbal, nonresponsive this morning. He is tachypneic, tachycardic , last documented fever 102.1 He is not following commands. On 100% with a nonrebreather. Objective Vitals Vital Signs Date Time Temp Pulse Resp B/P Pulse Ox O2 Delivery O2 Flow Rate FiO2 03/25/17 08:41 99 Non-Rebreather 15.00 100 03/25/17 06:00 112 03/25/17 04:00 100 Non-Rebreather 15.00 50 03/25/17 04:00 119 03/25/17 04:00 102.1 119 28 86/58 100 03/25/17 02:00 109 03/25/17 00:00 126 03/25/17 00:00 100 Non-Rebreather 15.00 03/25/17 00:00 102.8 126 32 95/64 95 03/24/17 23:25 94 Venturi Mask 8.00 50 03/24/17 22:00 130 03/24/17 21:29 95 Nasal Cannula 5.00 03/24/17 20:00 90 Nasal Cannula 5.00 03/24/17 20:00 132 03/24/17 20:00 98.1 132 24 87/52 90 03/24/17 14:00 114 03/24/17 12:00 100.0 28 26 101/64 98 03/24/17 12:00 94 Partial Non-Rebreather 03/24/17 12:00 105 03/24/17 10:00 108 03/24/17 09:09 18 I/O 03/24/17 03/24/17 03/24/17 03/25/17 03/25/17 03/25/17 07:00 15:00 23:00 07:00 15:00 23:00 Intake Total 1090 ml 1133 ml 1278 ml 2596 ml Output Total 575 ml 2000 ml 400 ml 700 ml Balance 515 ml -867 ml 878 ml 1896 ml IV Total 465 ml 399 ml 984 ml 2334 ml Tube Feeding 125 ml 334 ml 294 ml 262 ml Other 500 ml 400 ml Output Urine Total 325 ml 1400 ml 300 ml 200 ml Stool Total 250 ml 600 ml 100 ml 500 ml Result Diagram: 03/25/17 0750 03/25/17 0434 Imaging Last Impressions Chest X-Ray 03/23/17 0000 Signed Impressions: Service Date/Time: Thursday, March 23, 2017 14:27 - CONCLUSION: 1. Feeding tube in place with what appears to be a loop in the hypopharynx. 2. Bibasilar areas of consolidation or atelectasis. Casper Vargas MD CT Angiography 03/21/17 0000 Signed Impressions: Service Date/Time: March 00:33 - CONCLUSION: No evidence of pulmonary embolism is identified. Mild atelectasis left lung base. Fluid or phlegm within the trachea. Milo Muhammad MD Brain MRI 03/20/17 0000 Signed Impressions: Service Date/Time: Monday, March 20, 2017 16:11 - CONCLUSION: Abnormal appearance to the ruthy with some extension into the cortical spinal tracts of the posterior thalamus was bilaterally. 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 Cheo Martínez MD Abdomen X-Ray 03/20/17 0000 Signed Impressions: Service Date/Time: Monday, March 20, 2017 18:12 - CONCLUSION: Tip of the Dobbhoff tube projecting towards the pylorus. Cheo Barrera Jr., MD Abdomen Ultrasound 03/20/17 0000 Signed Impressions: Service Date/Time: Monday, March 20, 2017 11:38 - CONCLUSION: 1. Hepatosplenomegaly without focal lesion. 2. Probable sludge within the lumen of the gallbladder. No intrahepatic duct. Cheo Martínez MD Shoulder X-Ray 03/02/17 1404 Signed Impressions: Service Date/Time: Thursday, March 02, 2017 15:18 - CONCLUSION: No evidence of recent bony injury. Deformity of the lateral left clavicle suggests old healed trauma. Cheo Martínez MD Maxillofacial CT 03/02/17 1342 Signed Impressions: Service Date/Time: Thursday, March 02, 2017 14:52 - CONCLUSION: Negative CT of the facial bones. Cheo Martínez MD Head CT 03/02/17 1342 Signed Impressions: Service Date/Time: Thursday, March 02, 2017 14:52 - CONCLUSION: 1. Prominent scalp swelling left frontal and parietal region. No skull fracture seen. 2. Intracranial contents are intact without acute finding. Cheo Martínez MD Chest CT 03/02/17 1342 Signed Impressions: Service Date/Time: Thursday, March 02, 2017 15:04 - CONCLUSION: 1. Abnormal appearance of the lateral left clavicle suggesting a combination of acute and chronic bony injury. Fracture lucencies without bridging callus is seen the region of the coracoid process. 2. The lungs are clear. No evidence of pneumothorax. 3. Moderate size hiatus hernia. Cheo Martínez MD Cervical Spine CT 03/02/17 1342 Signed Impressions: Service Date/Time: Thursday, March 02, 2017 14:52 - CONCLUSION: Negative CT cervical spine. Cheo Martínez MD Abdomen/Pelvis CT 03/02/17 1342 Signed Impressions: Service Date/Time: Thursday, March 02, 2017 15:04 - CONCLUSION: Moderate size hiatus hernia. Scattered small sigmoid diverticula. Otherwise negative exam. Cheo Martínez MD Objective Remarks GENERAL: Frail patient, appears older than stated age. CARDIOVASCULAR: Rate in the 130s and regular rhythm without murmurs, gallops, or rubs. RESPIRATORY: Shallow breathing, tachypneic. Diffuse rhonchi bilaterally. Occasional wet cough. GASTROINTESTINAL: Abdomen soft, non-distended. Normal active bowel sounds MUSCULOSKELETAL: Extremities without cyanosis, or edema. NEURO: Left thigh open, does not follow commands, noninteractive. 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 Patient was resuscitated and sodium overly corrected. 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 Neurology has been following. Over the past few days, the patient has been having worsening respiratory distress and pneumonia. His respiratory status is worse this morning. He is tachypneic, increased work of breathing, tachycardic with a high fever. He will likely require intubation. At this point the patient is critically ill, he is a full code, will consult life educator to assume care. FAYE MAYORGA and Dr. Garcia 1. Osmotic demyelination syndrome --Acute toxic metabolic encephalopathy secondary to hyper ammonia/hypercarbic respiratory failure --Alcohol dependence --History of EtOH induced seizure withdrawal --Chronic benzodiazepine use: -Monitor sodium -Continue thiamine/folate and multivitamin. -palliative care is following the patient -Ativan to 0.5mg iv q3h prn for agitation -Morphine as needed for pain management 2. Escherichia coli UTI 03/11 - completed therapy 3. Aspiration Bacterial PNA? -s/p Zosyn/vancomycin 1 dose with aspiration likely -Zosyn DCed (03/20-03/22). Has been started on vancomycin and cefepime (03/23-). -lactic acid up trending (2.8-->3.2-->3.9 this am) - the patient continues to be febrile despite broad spectrum abx, ID following -sputum cx ordered, blood cultures negative to date - Will likely require intubation. Security Incident Handler consulted. 4. Acute hypoxemic hypercapnic respiratory failure: -Currently on partial rebreather at 15L. -Incentive spirometry while awake -DuoNeb [facility] q4 -CPT - Will likely require intubation. Security Incident Handler consulted. 5. Sinus tachycardia, Systolic heart failure: -Echocardiogram 03/04 revealed EF 35-40%. Mild mR. Left atrium dilated. JANE 33 mmHg Prophylaxis: GI - Protonix DVT - SCD/heparin subcutaneous Poor prognosis, palliative medicine following Problem Qualifiers (1) Altered mental status: Qualified Code: R41.82 - Altered mental status, unspecified altered mental status type Al Perez MD Mar 25, 2017 09:07
[2017-03-25] MEDS ORDERED: ETOMIDATE 40 MG/20 ML VIAL ONE (09:23)
[2017-03-25] MEDS ORDERED: ROCURONIUM INJ 50 MG/5 ML VIAL ONE (09:24)
[2017-03-25] MEDS ORDERED: TERBUTALINE INJ 1 MG/ML AMP SQ PRN (09:45)
--- NOTE | 2017-03-25 10:06 | PD.PROCEDR ---
Central Line Procedure REASON FOR PROCEDURE Central venous access PROCEDURE PERFORMED Central line placement: Left IJ CVL CONSENT Informed consent for procedure was not obtained and considered emergently secondary to poor IV access/hypotension. Discuss with my colleague Dr. Garcia who agreed.. The risks and benefits of the procedure were discussed to include but limited to bleeding, clot formation, infection, and even . ANESTHESIA Local injection of 1% Lidocaine DESCRIPTION OF THE PROCEDURE The patient was placed in supine, mild Trendelenburg position. The area was exposed and cleansed with ChloraPrep, times two. Large sterile drape was used to cover the patient, with the site exposed, under sterile conditions including cap, face mask, sterile gown, and sterile gloves. On single attempt, the introducer needle was inserted with negative pressure in syringe and venous flash was obtained. The guide wire was then advanced without any restriction and the needle was removed. The dilator was used without any complications. Using Seldinger technique the triple-lumen catheter was advanced over the guide wire to a depth of 20 centimeters. The guide wire was removed. All ports were aspirated with dark venous blood return and flushed easily with sterile saline. All ports were capped. Antibiotic disc was placed around central line at puncture site. The central line was secured to the skin with two interrupted 2.0 silk sutures. The area was bandaged with sterile see-through central line bandage. RADIOLOGICAL DATA Ultrasound guidance was used to locate the left internal jugular vein. Doppler/ color flow was used to confirm venous flow. COMPLICATIONS: No apparent complications ESTIMATED BLOOD LOSS: Less than 4 cc. Larry Ruby MD Mar 25, 2017 10:06
--- NOTE | 2017-03-25 10:07 | PD.PROCEDR ---
Procedure Note Procedure DATE: 03/25/2017 PROCEDURE: Orotracheal intubation INDICATION: Acute hypercapnic respiratory failure DETAILS OF PROCEDURE The patient was placed in optimal position and preoxygenated with 100% FiO2 via bag valve mask. At the start oxygen saturation was 99%. The patient was administered 20 milligrams etomidate IV and 50 milligrams rocuronium IV. I entered the oropharynx with a size 4 GVL glidescope blade and obtained a grade 2 view of the airway. On single attempt a size 8.0 cuffed endotracheal tube was passed through the vocal cords. Correct tube location was confirmed with end tidal CO2 detector and by auscultating over bilateral lung beckett. The endotracheal tube was secured with adhesive tape at a depth of 24 cm at the lips. The patient was connected to the ventilator. The patient tolerated the procedure well without any apparent complications. Oxygen saturations were maintained greater than 95% all times. STAT chest x-ray pending at time of dictation. Larry Ruby MD Mar 25, 2017 10:07
[2017-03-25] MEDS: SODIUM CHLORIDE 0.9% FLUSH 10 ML FLUSH IVF SCH (10:15)
--- NOTE | 2017-03-25 10:37 | RADRPT ---
EXAM DATE/TIME: 03/25/2017 10:03 [facility] COMPARISON: CHEST SINGLE AP, March 23, 2017, 14:27. INDICATIONS : Central line placement MEDICAL HISTORY : None. SURGICAL HISTORY : None. ENCOUNTER: Subsequent ACUITY: 3 weeks PAIN SCORE: Non-responsive. LOCATION: Bilateral chest FINDINGS: A single view of the chest demonstrates worsening bibasilar consolidation greater right lower lobe. L eft jugular central line with tip in the SVC. Endotracheal tube with tip in the thoracic inlet, shoul d be advanced. This is seen 7.5 cm above the joanie. Osseous structures are intact. CONCLUSION: 1. Worsening bibasilar consolidation. 2. Endotracheal tube with tip at the thoracic inlet and should be advanced at least 3-4 cm. 3. Adequate placement of left jugular central line without pneumothorax. Logan Morgan MD on March 25, 2017 at 10:34 Board Certified Radiologist. This report was verified electronically.
--- NOTE | 2017-03-25 10:39 | HHI.HCPN ---
Spoke with [facility], cage shift manager lieutenant De La Garza, to confirm daughter's incarceration. She is currently incarcerated with unknown discharge date. She is scheduled to go to [facility] at some point. Lieutenant De La Garza is currently requesting permission for her to participate in decision making but states it is unlikely. Currently awaiting call back. If daughter is unable to participate will proceed with alternate health care proxy per [place] Statutes (poss. siblings?) 12pm- received call back from [facility]; daughter is going to be allowed to participate in medical decision making. [facility] to call back to schedule time for tomorrow as daughter has court hearing today. Palliative care will continue to follow and clarify goals when phone conference can be arranged with daughter. Anna Marie Barrera, TRIMMER OPERATOR Mar 25, 2017 10:39
--- NOTE | 2017-03-25 10:41 | HHI.CCPN ---
Subjective Remarks/Hospital Course This is a 61-year-old male with a past history of alcohol abuse and a prior admission in 2015 for severe life-threatening hyponatremia at that time with a serum sodium of 98. He presents today with what he states is a 13 day history of worsening fatigue and weakness. He is very altered and is very difficult to understand the patient. What I can understand from him, is that at some point during these 13 days he has fallen and hit his face. Otherwise he states he lays on the couch, and has not gotten not much. He states he drinks 1 beer in the morning, and 1 beer in the afternoon. He does endorse taking some Xanax to help him sleep. He denies other drug use. He denies chest pain, shortness of breath, fever, chills, nausea, vomiting, abdominal pain. It is very difficult to get him to answer anymore questions about his medical history. His speech is very slurred and he is trying to talk about how he misses his daughter. Emergency department he was found to have a serum sodium of 99, a bilirubin of 8.9, lactate of 9.8, ammonia of 60, CK of 7000, elevated troponin of 4.9 with a normal MB ratio, creatinine 1.5, serum bicarbonate of 13. His white count is 12 , platelets 112. INR 1.9. His MELD calculates at 26. 4/2: Sodium level rapidly corrected overnight, likely secondary to appropriate correction of severe life-threatening dehydration. NS fluids changed to 1/2NS and correction slowed down significantly. sodium up to 130 this AM. CK downtrending. however, patient remains severely hypotensive requiring Levophed to maintain a map > 65 mmHg. This AM, serum K 1.6 (confirmed). started replacement with 200meq KCl and recheck K. 03/04: persists in vasoplegic distributive shock. afebrile. no evidence of infection. wbc downtrending. persists with severe life-threatening electrolyte derangements. passed swallow eval for nectar thick liquids. sodium stable at 131. ck downtrending. 03/05: persists in distributive shock. echo yesterday with EF 30%, globally decreased function. milrinone added yesterday with improvement in vasopressor requirement. still with multiple electrolyte abnormalities despite very aggressive replacement. very poor appetite. sodium stable at 131, which appears to be around baseline for him, looking back at prior records. also became agitated and delirious yesterday, likely secondary to etoh withdraw. started on Ativan and Librium. 03/06: electrolyte derangements persist. placed on continuous NaPhos infusion x 24h due to severe life-threatening hypophosphatemia. serial K, phos checks. weaning off levophed, milrinone persists. still poor appetite. sodium jumped from 132 to 139, but no significant mental status change, and we did not increase sodium load. 03/07: still requiring high electrolyte replacement. milrinone weaned to 0.375 mcg /kg/min overnight. still doing well with that. delirium persists. 03/08 Remains on milrinone. Electrolyte improving. Remains very lethargic, intermittently follows commands 03/09: Continues to be lethargic but wakes up follows some commands. Remains on milrinone will DC today. T max 100.1, urine output adequate sodium is 143 03/10: More awake alert, ate 50% of break fast. Will DC Dobhoff. Discontinue arterial and central lines. Delirium also improved, remains weak 03/11: doing much better this morning. no complaints. still with poor appetite. electrolytes improved. 03/20: We consulted for respiratory failure. Patient was last seen in room 1415 CMP receiving oral cares and became acutely hypoxic saturations 82% with coarse breath sounds. Halicat called. Patient was placed on a Venturi mask 50 % with desaturations to the mid 90s. He received Solu-Medrol 20 mg IV 1, Lasix 40 mg IV 1 and was transferred IM [facility] 521. Hemodynamically stable. Poor mentation Subjective: 03/25: Read consulted due to respiratory failure. Patient with gurgling/ transmitted upper airway sounds. Respiration the 50s. Decision made to orotracheally intubate. Noted to have been febrile with increased O2 course over the past 48 hours. Objective Vital Signs Date Time Temp Pulse Resp B/P Pulse Ox O2 Delivery O2 Flow Rate FiO2 03/25/17 09:35 95 100 03/25/17 08:41 Non-Rebreather 15.00 03/25/17 06:00 112 03/25/17 04:00 102.1 28 86/58 Intake and Output 03/24/17 03/24/17 03/25/17 08:00 16:00 00:00 Intake Total 1090 ml 1133 ml 1278 ml Output Total 575 ml 2000 ml 400 ml Balance 515 ml -867 ml 878 ml Result Diagram: 03/25/17 0750 03/25/17 0434 Other Results Microbiology Date/Time Procedure Status Source Growth 03/22/17 20:45 Urine Culture - Final Complete Urine Clean Catch NO GROWTH IN 48 HOURS. 03/22/17 20:29 Aerobic Blood Culture - Preliminary Resulted Blood Peripheral NO GROWTH IN 2 DAYS 03/22/17 20:29 Anaerobic Blood Culture - Preliminary Resulted Blood Peripheral NO GROWTH IN 2 DAYS Imaging Last Impressions Chest X-Ray 03/23/17 0000 Signed Impressions: Service Date/Time: Thursday, March 23, 2017 14:27 - CONCLUSION: 1. Feeding tube in place with what appears to be a loop in the hypopharynx. 2. Bibasilar areas of consolidation or atelectasis. Casper Vargas MD CT Angiography 03/21/17 0000 Signed Impressions: Service Date/Time: March 00:33 - CONCLUSION: No evidence of pulmonary embolism is identified. Mild atelectasis left lung base. Fluid or phlegm within the trachea. Milo Muhammad MD Brain MRI 03/20/17 0000 Signed Impressions: Service Date/Time: Monday, March 20, 2017 16:11 - CONCLUSION: Abnormal appearance to the ruthy with some extension into the cortical spinal tracts of the posterior thalamus was bilaterally. 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 Cheo Martínez MD Abdomen X-Ray 03/20/17 0000 Signed Impressions: Service Date/Time: Monday, March 20, 2017 18:12 - CONCLUSION: Tip of the Dobbhoff tube projecting towards the pylorus. Cheo Barrera Jr., MD Abdomen Ultrasound 03/20/17 0000 Signed Impressions: Service Date/Time: Monday, March 20, 2017 11:38 - CONCLUSION: 1. Hepatosplenomegaly without focal lesion. 2. Probable sludge within the lumen of the gallbladder. No intrahepatic duct. Cheo Martínez MD Shoulder X-Ray 03/02/17 1404 Signed Impressions: Service Date/Time: Thursday, March 02, 2017 15:18 - CONCLUSION: No evidence of recent bony injury. Deformity of the lateral left clavicle suggests old healed trauma. Cheo Martínez MD Maxillofacial CT 03/02/171341 Signed Impressions: Service Date/Time: Thursday, March 02, 2017 14:52 - CONCLUSION: Negative CT of the facial bones. Cheo Martínez MD Head CT 03/02/17 1342 Signed Impressions: Service Date/Time: Thursday, March 02, 2017 14:52 - CONCLUSION: 1. Prominent scalp swelling left frontal and parietal region. No skull fracture seen. 2. Intracranial contents are intact without acute finding. Cheo Martínez MD Chest CT 03/02/17 134 Signed Impressions: Service Date/Time: Thursday, March 02, 2017 15:04 - CONCLUSION: 1. Abnormal appearance of the lateral left clavicle suggesting a combination of acute and chronic bony injury. Fracture lucencies without bridging callus is seen the region of the coracoid process. 2. The lungs are clear. No evidence of pneumothorax. 3. Moderate size hiatus hernia. Cheo Martínez MD Cervical Spine CT 03/02/171341 Signed Impressions: Service Date/Time: Thursday, March 02, 2017 14:52 - CONCLUSION: Negative CT cervical spine. Cheo Martínez MD Abdomen/Pelvis CT 03/02/171341 Signed Impressions: Service Date/Time: Thursday, March 02, 2017 15:04 - CONCLUSION: Moderate size hiatus hernia. Scattered small sigmoid diverticula. Otherwise negative exam. Cheo Martínez MD Objective Remarks GENERAL: 61-year-old male, critically ill currently resting in bed orotracheally intubated HEENT: Healing abrasion left side scalp. TIMOTHY. Scleral icterus. Oropharynx with old dried secretions NECK: No JVD/thyromegaly/lymph adenopathy. Trachea Midline CHEST: Coarse crackles appreciated throughout all lung beckett. Few wheezes. CARDIOVASCULAR: Tachycardia, RR. S1, S2. No S4. Without murmur ABDOMEN: Slightly distended/protuberant. Soft. Vague diffuse tenderness. Voluntary guarding. No rigidity. Hypoactive bowel sounds. MUSCULOSKELETAL: Posterior tibialis 2+ palpable. NEUROLOGICAL: Status post paralysis. Prior was opening eyes and moaning. Not following commands. Voluntary withdrawal to pain. Urinary Catheter: Yes Assessment to: Continue Johns insert reason: Prolonged Immobilization Vascular Central Line Catheter: Yes Assessment to: Continue Line: Central Venous Catheter Side: Left Location: Internal A/P Assessment and Plan Neuro/Psych: Osmotic demyelination syndrome Acute toxic metabolic encephalopathy secondary to hypercarbic respiratory failure Alcohol dependence History of EtOH induced seizure withdrawal Chronic benzodiazepine use Written for Versed/fentanyl drips for sedation/analgesia while intubated Goal of RA SS -2 Daily sedation vacation MRI 03/21 - T1/T2 prolonged with sparing of this central appears final fibers. 2 small spots in the posterior central spinal tract consistent with Osmotic demyelination syndrome. ODS most likely from rapid correction of Na, with underlying alcoholism CT head 03/05 revealed no acute intracranial findings Continue thiamine/folate and multivitamin. Seen by neurology/Dr. Mazariegos. No further recommendations at this time. Respiratory: Acute hypoxemic hypercapnic respiratory failure PRVC 16/550/1.3//100 Ventilator bundle Bronchodilator therapy every 4 hours and as needed Chest x-ray reveals right lower lobe infiltrate versus effusion Patient likely aspirated. We'll monitor closely for further aspiration Continue feeding via Dobbhoff tube Cardiovascular: Sinus tachycardia Chronic Systolic heart failure Echocardiogram 03/04 revealed EF 35-40%. Mild mR. Left atrium dilated. JANE 33 mmHg TSH within normal limits 0.8 Will likely start on low-dose beta kayla tolerates Renal: Acute Kidney Injury- resolved Rhabdomyolysis- resolved ODS-see neuro Accurate I's and O's Monitor urine output closely Follow BMP in a.m. Currently on free water 200 every 6 GI: Likely EtOH cirrhosis Hyperammonemia Hiatal hernia Sigmoid diverticulosis History of umbilical hernia repair Placed on Xifaxan 550 twice a day/lactulose 30 twice a day recheck ammonia in a.m. Currently 54 LFT is elevated. Ultrasound liver-hepatosplenomegaly. Sludge in gallbladder Patient on Prilosec 20 mg by mouth daily at home. Currently in IV Protonix Stat tube feeds with Jevity 1.5 goal 60 cc an hour Heme: Macrocytic anemia Leukocytosis Possibly leukemoid/stress versus aspiration No indications for transfusion of blood products at this time. Monitor CBC daily. Follow trends B12 1452, Folate 15.2. TSH 0.8. ID: Likely aspiration pneumonia Escherichia coli UTI 03/11 - completed therapy Pertinent cultures 03/22 - urine - no growth 03/22 - blood cultures 2 - negative 03/20 - blood cultures 2 - no growth 03/11 - urine - Escherichia coli 03/02 - blood cultures 2 - no growth Followed by Dr. Lisa/ID. Current cefepime/Flagyl. Vancomycin discontinued yesterday. Endocrine: Hyperglycemia of critical illness History of hypothyroidism SSI with Accu-Cheks 4 times a day before meals/at bedtime to maintain euglycemia FEN: Replace electrolytes as clinically indicated MSK: History of old left clavicle fracture PT/OT evaluate and treat Access Left IJ TLC day 1 placed 03/25 Prophylaxis: GI - Protonix DVT - SCD/heparin subcutaneous Critical Care: The total critical care time was 55 minutes. Time to perform other separately billable procedures was not included in the critical care time. Larry Ruby MD Mar 25, 2017 10:41
[2017-03-25] MEDS: INSULIN NovoLIN REGULAR SUPPLEMENTAL SCALE SQ SCH ×3 (11:00→20:55)
[2017-03-25] MEDS ORDERED: ADENOSINE IV SOLN 3 MG/ML 2 ML VIAL ONE (11:38)
[2017-03-25 11:54] LABS: APTT (PATIENT) 37.3 SEC (24.3-30.1); INTERNATIONAL NORMALIZED RATIO 1.2 RATIO; PROTHROMBIN TIME - PATIENT 13.4 SEC (9.8-11.6)
[2017-03-25 12:06] LABS: BLOOD GAS BASE EXCESS -4.8 mmol/L (-2-2); BLOOD GAS CARBOXYHEMOGLOBIN 1.8 % (0-4); BLOOD GAS HCO3 20 mmol/L (22-26); BLOOD GAS O2 HGB SATURATION 93 % (90-100); BLOOD GAS OXYGEN CONTENT 11.9 Vol % (12.0-20.0); BLOOD GAS PCO2 37 mmHg (38-42); BLOOD GAS PO2 85 mmHg (61-120); CRITICAL VALUE NO; OXYGEN DEVICE VENTILATOR; TEMP CORR TO 98.6
[2017-03-25 12:07] LABS: DRAW SITE RT RADIAL; FIO2 70 %; NUMBER OF ARTERIAL PUNCTURES 1; STAT NO; ULNAR PULSE PRESENT; VENT SETTINGS PRVC16/550/PEEP10
[2017-03-25] MEDS: METOPROLOL TARTRATE 5 MG/5 ML VIAL IV PUSH SCH ×3 (12:28→20:54)
[2017-03-25 14:36] LABS: BACTERIA, URINE MOD /hpf; BLOOD, URINE MOD (NEG); GLUCOSE,URINE NEG (NEG); GRANULAR CAST, URINE 6 /lpf; KETONE, URINE TRACE mg/dL (NEG); MUCUS URINE FEW /lpf (OCC); NITRITE,URINE NEG (NEG); SQUAMOUS EPITHELIAL CELL URINE 1 /hpf (0-5)
[2017-03-25 14:38] LABS: COMMENT (UR) CATH-CULTURE IND; CULTURE IF INDICATED CATH CULTURE IND; URINE COLOR AMBER (YELLW/STRAW)
--- NOTE | 2017-03-25 15:36 | HHI.IDPN ---
Subjective Subjective Remarks Notes reviewed Problems this morning - febrile up to 102, tachycardic, tachypneic and poorly responsive Now intubated, on pressors, sedated and on paralytics Has new central line New C/S obtained Antibiotics Cefepime Zyvox Lines [facility] TLC Past Medical History ETOHism Allergies: Coded Allergies: PEANUTS (Unverified Allergy, Severe, 03/02/17) *MDRO Multi-Drug Resistant Organism (Verified Adverse Reaction, Unknown, ) MRSA PCR screen POSITIVE - 03/02/17 Objective . Vital Signs Date Time Temp Pulse Resp B/P Pulse Ox O2 Delivery O2 Flow Rate FiO2 03/25/17 09:35 95 100 03/25/17 08:41 99 Non-Rebreather 15.00 100 03/25/17 06:00 112 03/25/17 04:00 100 Non-Rebreather 15.00 50 03/25/17 04:00 119 03/25/17 04:00 102.1 119 28 86/58 100 03/25/17 02:00 109 03/25/17 00:00 126 03/25/17 00:00 100 Non-Rebreather 15.00 03/25/17 00:00 102.8 126 32 95/64 95 03/24/17 23:25 94 Venturi Mask 8.00 50 03/24/17 22:00 130 03/24/17 21:29 95 Nasal Cannula 5.00 03/24/17 20:00 90 Nasal Cannula 5.00 03/24/17 20:00 132 03/24/17 20:00 98.1 132 24 87/52 90 03/24/17 03/24/17 03/25/17 15:00 23:00 07:00 Intake Total 1133 ml 1278 ml 2596 ml Output Total 2000 ml 400 ml 700 ml Balance -867 ml 878 ml 1896 ml IV Total 399 ml 984 ml 2334 ml Tube Feeding 334 ml 294 ml 262 ml Other 400 ml Output Urine Total 1400 ml 300 ml 200 ml Stool Total 600 ml 100 ml 500 ml . Laboratory Tests Test 03/23/17 03/24/17 03/25/17 18:16 05:07 07:50 White Blood Count 10.6 TH/MM3 9.5 TH/MM3 5.1 TH/MM3 Red Blood Count 2.04 MIL/MM3 2.08 MIL/MM3 2.35 MIL/MM3 Hemoglobin 8.4 GM/DL 8.4 GM/DL 9.3 GM/DL Hematocrit 23.7 % 23.4 % 27.2 % Mean Corpuscular Volume 116.3 FL 112.8 FL 115.8 FL Mean Corpuscular Hemoglobin 41.1 PG 40.7 PG 39.8 PG Mean Corpuscular Hemoglobin 35.3 % 36.1 % 34.4 % Concent Red Cell Distribution Width 14.0 % 13.8 % 14.5 % Platelet Count 144 TH/MM3 135 TH/MM3 105 TH/MM3 Mean Platelet Volume 7.6 FL 8.9 FL 9.2 FL Neutrophils (%) (Auto) 80.2 % 78.6 % 71.9 % Lymphocytes (%) (Auto) 13.7 % 14.5 % 15.9 % Monocytes (%) (Auto) 4.8 % 5.6 % 11.0 % Eosinophils (%) (Auto) 0.6 % 0.8 % 0.6 % Basophils (%) (Auto) 0.7 % 0.5 % 0.6 % Neutrophils # (Auto) 8.5 TH/MM3 7.5 TH/MM3 3.7 TH/MM3 Lymphocytes # (Auto) 1.4 TH/MM3 1.4 TH/MM3 0.8 TH/MM3 Monocytes # (Auto) 0.5 TH/MM3 0.5 TH/MM3 0.6 TH/MM3 Eosinophils # (Auto) 0.1 TH/MM3 0.1 TH/MM3 0.0 TH/MM3 Basophils # (Auto) 0.1 TH/MM3 0.0 TH/MM3 0.0 TH/MM3 CBC Comment DIFF FINAL AUTO DIFF AUTO DIFF Differential Comment AUTO DIFF FINAL DIFF CONFIRMED MANUAL Platelet Estimate LOW LOW Platelet Morphology Comment NORMAL NORMAL Hematology Comments Differential Total Cells 100 Counted Neutrophils % (Manual) 60 % Band Neutrophils % 9 % Lymphocytes % 22 % Monocytes % 8 % Eosinophils % 1 % Neutrophils # (Manual) 3.5 TH/MM3 Nucleated Red Blood Cells 1 /100 WBC Red Cell Morphology Comment Laboratory Tests Test 03/23/17 03/24/17 03/24/17 03/25/17 18:16 05:07 13:58 04:34 Sodium Level 143 MEQ/L 143 MEQ/L 143 MEQ/L Potassium Level 2.7 MEQ/L 3.2 MEQ/L 3.8 MEQ/L Chloride Level 108 MEQ/L 112 MEQ/L 111 MEQ/L Carbon Dioxide Level 23.9 MEQ/L 24.0 MEQ/L 22.8 MEQ/L Anion Gap 11 MEQ/L 7 MEQ/L 9 MEQ/L Blood Urea Nitrogen 13 MG/DL 12 MG/DL 16 MG/DL Creatinine 0.65 MG/DL 0.43 MG/DL 0.58 MG/DL Estimat Glomerular Filtration 126 ML/MIN 203 ML/MIN 143 ML/MIN Rate Random Glucose 132 MG/DL 104 MG/DL 127 MG/DL Lactic Acid Level 3.2 mmol/L 3.4 mmol/L 3.9 mmol/L Calcium Level 7.9 MG/DL 8.2 MG/DL 7.3 MG/DL Total Bilirubin 2.2 MG/DL 2.6 MG/DL Aspartate Amino Transf 114 U/L 102 U/L (AST/SGOT) Alanine Aminotransferase 60 U/L 56 U/L (ALT/SGPT) Alkaline Phosphatase 105 U/L 94 U/L Total Protein 6.4 GM/DL 6.4 GM/DL 5.9 GM/DL Albumin 1.9 GM/DL 1.9 GM/DL Protein Corrected Calcium 7.9 MG/DL Test 03/25/17 03/25/17 10:00 11:00 Ammonia 30 MCMOL/L Total Creatine Kinase 139 U/L Lactic Acid Level 2.9 mmol/L Microbiology Date/Time Procedure Status Source Growth 03/22/17 20:22 Aerobic Blood Culture - Preliminary Resulted Blood Peripheral NO GROWTH IN 3 DAYS 03/22/17 20:22 Anaerobic Blood Culture - Preliminary Resulted Blood Peripheral NO GROWTH IN 3 DAYS 03/22/17 20:29 Aerobic Blood Culture - Preliminary Resulted Blood Peripheral NO GROWTH IN 3 DAYS 03/22/17 20:29 Anaerobic Blood Culture - Preliminary Resulted Blood Peripheral NO GROWTH IN 3 DAYS 03/22/17 20:45 Urine Culture - Final Complete Urine Clean Catch NO GROWTH IN 48 HOURS. 03/25/17 11:50 Aerobic Blood Culture Received Blood Peripheral Pending 03/25/17 11:50 Anaerobic Blood Culture Received Blood Peripheral Pending 03/25/17 11:54 Aerobic Blood Culture Received Blood Peripheral Pending 03/25/17 11:54 Anaerobic Blood Culture Received Blood Peripheral Pending 03/25/17 13:00 Urine Culture Received Urine Catheterized Urine Pending Imaging Chest X-Ray 03/25/17 1004 Signed Impressions: Service Date/Time: Saturday, March 25, 2017 10:03 - CONCLUSION: 1. Worsening bibasilar consolidation. 2. Endotracheal tube with tip at the thoracic inlet and should be advanced at least 3-4 cm. 3. Adequate placement of left jugular central line without pneumothorax. Logan Morgan MD Chest X-Ray 03/23/17 0000 Signed Impressions: Service Date/Time: Thursday, March 23, 2017 14:27 - CONCLUSION: 1. Feeding tube in place with what appears to be a loop in the hypopharynx. 2. Bibasilar areas of consolidation or atelectasis. Casper Vargas MD Physical Exam GENERAL: sedated on the vent SKIN: Warm and dry. No generalized rash. Has some edema in his upper extremities. HEENT: Pupils equal round and reactive. Mild scleral icterus. No scleral edema. No injection or drainage. Orally intubated NECK: Trachea midline. No JVD or lymphadenopathy. Supple, nontender, no meningeal signs. CARDIOVASCULAR: Regular rate and rhythm without murmurs, gallops, or rubs. Tachycardic. RESPIRATORY: Has scattered rhonchi, decreased BS at bases, worse on R than on L. . GASTROINTESTINAL: Abdomen mildly distended, bowel sounds are present and normoactive, no reaction to palpation MUSCULOSKELETAL: Lower extremities without clubbing, cyanosis, or edema. No joint effusion, or edema noted. No calf tenderness. NEUROLOGICAL: Sedated PSYCH: Unable to assess : Johns cath in place with a lot of sediment LINE: central line inserted today Assessment & Plan Remarks IMPRESSION Sepsis syndrome, due to PNA - now on vent Septic shock Known ETOH abuse Encephalopathy, likely has underlying problem due to ETOHism, worsen by sepsis Respiratory failure RECOMMENDATION Follow C/S Change Cefepime to Merem Continue Zyvox - follow CBC Continue Flagyl and Lactinex Follow temps Monitor progress D/W Umm Lui MD Mar 25, 2017 15:36
[2017-03-25] MEDS ORDERED: ASP: Other exception documentation: ( ) PRN (15:45)
[2017-03-25] MEDS ORDERED: MISCELLANEOUS PHARMACY INFORMATION XX PRN (15:45)
[2017-03-25] MEDS ORDERED: SODIUM CHLOR 0.45% 1000 ML INJ 1,000 ML IV ONE (16:00)
[2017-03-25] MEDS: SODIUM CHLOR 0.45% 1000 ML INJ 1,000 ML IV SCH (18:06)
[2017-03-25] MEDS: MEROPENEM INJ 1,000 MG in SODIUM CHLORIDE 0.9% INJ 100 ML IV SCH (18:06)
--- NOTE | 2017-03-25 18:32 | MG ---
cc: ANTONY MARSHALL Lab No: Date: 03/25/2017 Age: Sex: M Race: Cc. TEST NUMBER [id number] TECHNIQUE 17 channel EEG. DESCRIPTION The background activity shows generalized slowing in the delta frequency of roughly 3-4 Hz. No lateralizing features are identified and no epileptiform features are identified. Hyperventilation was not done. Photic stimulation was done with no significant driving response. INTERPRETATION This is an abnormal EEG consistent with a severe encephalopathy. MD KATHY Grant/KYLEE /5:08 PM /6:30 PM
[2017-03-25] MEDS: MIDAZOLAM 100 MG/ML INJ 100 ML IV SCH (20:52)
[2017-03-25] MEDS: CISATRACURIUM INJ 100 MG in SODIUM CHLOR 0.9% 250 ML INJ 240 ML IV SCH (20:52)
[2017-03-25] MEDS: PHENYLEPHRINE INJ 40 MG in DEXTROSE 5% IN WATE 500 ML INJ 496 ML IV SCH ×2 (20:52)
[2017-03-25] MEDS: CHLORHEXIDINE 0.12% (ORAL KIT) 15 ML CUP MT SCH (20:57)
[2017-03-25 21:46] LABS: C. DIFF EPI 027 PRESUMPTIVE NEGATIVE (NEGATIVE); C. DIFF TOXIN PCR NEGATIVE (NEGATIVE)
--- NOTE | 2017-03-25 23:21 | RADRPT ---
EXAM DATE/TIME: 03/25/2017 22:17 [facility] COMPARISON: No previous studies available for comparison. INDICATIONS : Bilateral leg swelling. MEDICAL HISTORY : Methicillin-resistant Staphylococcus aureus. Respiratory failure. Liver disease. ETOH abuse. SURGICAL HISTORY : Brain surgery. ENCOUNTER: Initial ACUITY: 1 day PAIN SCORE: Non-responsive LOCATION: Bilateral legs. TECHNIQUE: Venous ultrasound of the left and right leg was performed from the inguinal ligament to the proximal calf. Real-time, color Doppler and spectral tracing, compression and augmentation techniques were us ed. FINDINGS: RIGHT LEG: There is normal compressibility of the deep venous system from the inguinal region to the proximal ca lf. No echogenic clot is seen in the lumen of the common femoral, femoral, popliteal, and posterior tibial veins. There is a normal response of the venous system to proximal and distal augmentation an d respiration. LEFT LEG: There is normal compressibility of the deep venous system from the inguinal region to the proximal ca lf. No echogenic clot is seen in the lumen of the common femoral, femoral, popliteal, and posterior tibial veins. There is a normal response of the venous system to proximal and distal augmentation an d respiration. CONCLUSION: No evidence of DVT. Víctor Rosas MD on March 25, 2017 at 23:19 Board Certified Radiologist. This report was verified electronically.
[2017-03-26] VITALS (19 sets, daily range): BP systolic 88–131; BP diastolic 58–69; PULSE 16–109; RESP 12–24; TEMP 98.3–100.9; O2SAT 95–100
[2017-03-26] MEDS: MEROPENEM INJ 1,000 MG in SODIUM CHLORIDE 0.9% INJ 100 ML IV SCH ×3 (00:51→17:43)
[2017-03-26] MEDS: MUPIROCIN 2% OINT 1 APPLIC/GM SYR EACH NARE SCH ×3 (00:53→21:29)
[2017-03-26] MEDS: RESP: ALBUTEROL 2.5 MG/IPRATROPIUM 0.5 MG NEB (SCH) NEB ×6 (03:12→23:47)
[2017-03-26] MEDS: RESP: ACETYLCYSTEINE 20% 30 ML NEB NEB SCH (03:12)
[2017-03-26 04:01] LABS: BICARBONATE 21.8 MEQ/L (21.0-32.0); MAGNESIUM 1.5 MG/DL (1.5-2.5); POTASSIUM 3.5 MEQ/L (3.5-5.1)
[2017-03-26 04:14] LABS: CALCIUM-PROTEIN CORRECTED 8.2 MG/DL (8.5-10.1); TOTAL BILIRUBIN ADULT 1.8 MG/DL (0.2-1.0)
[2017-03-26] MEDS: LINEZOLID 600 MG PREMIX 300 ML IV SCH ×2 (04:16→16:00)
[2017-03-26] MEDS: METOPROLOL TARTRATE 5 MG/5 ML VIAL IV PUSH SCH ×4 (04:16→21:31)
[2017-03-26] MEDS: metroNIDAZOLE 500 MG TAB PO SCH ×3 (04:17→21:30)
[2017-03-26] MEDS: FREE WATER NG SCH ×4 (04:17→17:43)
[2017-03-26] MEDS: CISATRACURIUM INJ 100 MG in SODIUM CHLOR 0.9% 250 ML INJ 240 ML IV SCH ×3 (04:18→23:07)
[2017-03-26] MEDS: HEPARIN SODIUM - SQ 10,000 UNITS/ML VIAL SQ SCH ×3 (04:18→21:30)
[2017-03-26] MEDS: fentaNYL DRIP 250 ML IV SCH ×2 (04:19→17:57)
[2017-03-26] MEDS: SODIUM CHLOR 0.45% 1000 ML INJ 1,000 ML IV SCH ×3 (04:31→22:00)
[2017-03-26] MEDS: INSULIN NovoLIN REGULAR SUPPLEMENTAL SCALE SQ SCH ×5 (04:32→20:00)
[2017-03-26 04:51] LABS: AUTOMATED NEUTROPHIL # 7.3 TH/MM3 (1.8-7.7); BASOPHIL # 0.1 TH/MM3 (0-0.2); BASOPHIL % 0.7 % (0.0-2.0); EOSINOPHIL # 0.1 TH/MM3 (0-0.4); EOSINOPHIL % 0.6 % (0.0-4.0); HEMATOCRIT 21.2 % (39.0-51.0); LYMPH % 17.3 % (9.0-44.0); LYMPHOCYTE # 1.7 TH/MM3 (1.0-4.8); MEAN CELL VOLUME 114.5 FL (80.0-100.0); MEAN CORPUSCULAR HEMOGLOBIN 40.4 PG (27.0-34.0); MEAN CORPUSCULAR HGB CONC 35.3 % (32.0-36.0); MONO % 6.5 % (0.0-8.0); NEUT % 74.9 % (16.0-70.0); PLATELET COUNT 152 TH/MM3 (150-450); RED BLOOD COUNT 1.85 MIL/MM3 (4.50-5.90); RED CELL DISTRIBUTION WIDTH 15.3 % (11.6-17.2); WHITE BLOOD COUNT 9.7 TH/MM3 (4.0-11.0)
[2017-03-26 04:54] LABS: HEMO FLAGS AUTO DIFF
[2017-03-26 05:59] LABS: SCAN/DIFF AUTO DIFF CONFIRMED; TOXIC GRANULATION 2+ (NORMAL)
--- NOTE | 2017-03-26 06:25 | RADRPT ---
EXAM DATE/TIME: 03/26/2017 05:35 [facility] COMPARISON: CHEST SINGLE AP, March 25, 2017, 10:03. INDICATIONS : Shortness of breath. MEDICAL HISTORY : None. SURGICAL HISTORY : None. ENCOUNTER: Subsequent ACUITY: 3 weeks PAIN SCORE: Non-responsive. LOCATION: Bilateral chest FINDINGS: The support devices remain in place. There is some improved aeration of the right lung infiltrate com pared to the prior study. There continues to be infiltrate in the left lung base which also appears t o be improving. The heart size is stable. No definite pleural effusions. The bony structures are stab le. No evidence of pneumothorax. CONCLUSION: Improving bilateral pulmonary infiltrates Víctor Rosas MD on March 26, 2017 at 6:22 Board Certified Radiologist. This report was verified electronically.
[2017-03-26] MEDS ORDERED: POTASSIUM CHLOR 20 MEQ PREMIX 100 ML IV ONE (07:15)
[2017-03-26] MEDS ORDERED: LACTATED RINGER'S 1000 ML INJ 1,000 ML IV ONE ×2 (07:15→13:00)
[2017-03-26] MEDS ORDERED: SODIUM PHOSPHATE INJ 30 MMOL in SODIUM CHLOR 0.9% 250 ML INJ 250 ML IV ONE (08:00)
[2017-03-26] MEDS: ARTIFICIAL TEARS OPTH SOLN 15 ML BTL EACH EYE SCH ×3 (09:00→17:43)
[2017-03-26] MEDS: LACTULOSE SYRUP 20 GM/30 ML CUP PO SCH ×2 (09:00→21:00)
[2017-03-26] MEDS: SODIUM CHLORIDE 0.9% FLUSH 10 ML FLUSH IVF SCH (09:00)
[2017-03-26] MEDS: MAGNESIUM SULFATE 1 GM PREMIX 100 ML IV SCH ×2 (09:05→09:14)
[2017-03-26] MEDS: CHLORHEXIDINE 0.12% (ORAL KIT) 15 ML CUP MT SCH ×2 (09:07→21:28)
--- NOTE | 2017-03-26 09:49 | HHI.CCPN ---
Subjective Remarks/Hospital Course This is a 61-year-old male with a past history of alcohol abuse and a prior admission in 2015 for severe life-threatening hyponatremia at that time with a serum sodium of 98. He presents today with what he states is a 13 day history of worsening fatigue and weakness. He is very altered and is very difficult to understand the patient. What I can understand from him, is that at some point during these 13 days he has fallen and hit his face. Otherwise he states he lays on the couch, and has not gotten not much. He states he drinks 1 beer in the morning, and 1 beer in the afternoon. He does endorse taking some Xanax to help him sleep. He denies other drug use. He denies chest pain, shortness of breath, fever, chills, nausea, vomiting, abdominal pain. It is very difficult to get him to answer anymore questions about his medical history. His speech is very slurred and he is trying to talk about how he misses his daughter. Emergency department he was found to have a serum sodium of 99, a bilirubin of 8.9, lactate of 9.8, ammonia of 60, CK of 7000, elevated troponin of 4.9 with a normal MB ratio, creatinine 1.5, serum bicarbonate of 13. His white count is 12 , platelets 112. INR 1.9. His MELD calculates at 26. 4/2: Sodium level rapidly corrected overnight, likely secondary to appropriate correction of severe life-threatening dehydration. NS fluids changed to 1/2NS and correction slowed down significantly. sodium up to 130 this AM. CK downtrending. however, patient remains severely hypotensive requiring Levophed to maintain a map > 65 mmHg. This AM, serum K 1.6 (confirmed). started replacement with 200meq KCl and recheck K. 03/04: persists in vasoplegic distributive shock. afebrile. no evidence of infection. wbc downtrending. persists with severe life-threatening electrolyte derangements. passed swallow eval for nectar thick liquids. sodium stable at 131. ck downtrending. 03/05: persists in distributive shock. echo yesterday with EF 30%, globally decreased function. milrinone added yesterday with improvement in vasopressor requirement. still with multiple electrolyte abnormalities despite very aggressive replacement. very poor appetite. sodium stable at 131, which appears to be around baseline for him, looking back at prior records. also became agitated and delirious yesterday, likely secondary to etoh withdraw. started on Ativan and Librium. 03/06: electrolyte derangements persist. placed on continuous NaPhos infusion x 24h due to severe life-threatening hypophosphatemia. serial K, phos checks. weaning off levophed, milrinone persists. still poor appetite. sodium jumped from 132 to 139, but no significant mental status change, and we did not increase sodium load. 03/07: still requiring high electrolyte replacement. milrinone weaned to 0.375 mcg /kg/min overnight. still doing well with that. delirium persists. 03/08 Remains on milrinone. Electrolyte improving. Remains very lethargic, intermittently follows commands 03/09: Continues to be lethargic but wakes up follows some commands. Remains on milrinone will DC today. T max 100.1, urine output adequate sodium is 143 03/10: More awake alert, ate 50% of break fast. Will DC Dobhoff. Discontinue arterial and central lines. Delirium also improved, remains weak 03/11: doing much better this morning. no complaints. still with poor appetite. electrolytes improved. 03/20: We consulted for respiratory failure. Patient was last seen in room 1415 CMP receiving oral cares and became acutely hypoxic saturations 82% with coarse breath sounds. Halicat called. Patient was placed on a Venturi mask 50 % with desaturations to the mid 90s. He received Solu-Medrol 20 mg IV 1, Lasix 40 mg IV 1 and was transferred IM [place] [id number]. Hemodynamically stable. Poor mentation 03/25: Reconsulted due to respiratory failure. Patient with gurgling/ transmitted upper airway sounds. Respiration the 50s. Decision made to orotracheally intubate. Noted to have been febrile with increased O2 course over the past 48 hours. Subjective: 03/26: Afebrile. Requiring Nimbex drip for ventilator synchrony. Decreased urine output noted. Hemoglobin decreased likely dilutional. Tolerating tube feeding. Electrolytes been replaced. Objective Vital Signs Date Time Temp Pulse Resp B/P Pulse Ox O2 Delivery O2 Flow Rate FiO2 03/26/17 07:49 98 50 03/26/17 06:00 102 03/26/17 04:00 98.7 18 98/68 03/26/17 04:00 Mechanical Ventilator 15.00 Intake and Output 03/25/17 03/25/17 03/26/17 08:00 16:00 00:00 Intake Total 2596 ml 3077 ml Output Total 700 ml 375 ml Balance 1896 ml 2702 ml Result Diagram: 03/26/17 0330 03/26/17 0330 Other Results Microbiology Date/Time Procedure Status Source Growth 03/25/17 17:00 Gram Stain - Final Resulted Sputum Expectorated Sputum 03/25/17 17:00 Sputum Culture Resulted Sputum Expectorated Sputum Pending 03/25/17 13:00 Urine Culture Received Urine Catheterized Urine Pending 03/25/17 11:54 Aerobic Blood Culture Received Blood Peripheral Pending 03/25/17 11:54 Anaerobic Blood Culture Received Blood Peripheral Pending 03/22/17 20:45 Urine Culture - Final Complete Urine Clean Catch NO GROWTH IN 48 HOURS. 03/22/17 20:29 Aerobic Blood Culture - Preliminary Resulted Blood Peripheral NO GROWTH IN 3 DAYS 03/22/17 20:29 Anaerobic Blood Culture - Preliminary Resulted Blood Peripheral NO GROWTH IN 3 DAYS Imaging Last Impressions Chest X-Ray 03/26/17 0600 Signed Impressions: Service Date/Time: Sunday, March 26, 2017 05:35 - CONCLUSION: Improving bilateral pulmonary infiltrates Víctor Rosas MD Lower Extremity Ultrasound 03/25/17 0000 Signed Impressions: Service Date/Time: Saturday, March 25, 2017 22:17 - CONCLUSION: No evidence of DVT. Víctor Rosas MD CT Angiography 03/21/17 0000 Signed Impressions: Service Date/Time: March 00:33 - CONCLUSION: No evidence of pulmonary embolism is identified. Mild atelectasis left lung base. Fluid or phlegm within the trachea. Milo Muhammad MD Brain MRI 03/20/17 0000 Signed Impressions: Service Date/Time: Monday, March 20, 2017 16:11 - CONCLUSION: Abnormal appearance to the ruthy with some extension into the cortical spinal tracts of the posterior thalamus was bilaterally. 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 Cheo Martínez MD Abdomen X-Ray 03/20/17 0000 Signed Impressions: Service Date/Time: Monday, March 20, 2017 18:12 - CONCLUSION: Tip of the Dobbhoff tube projecting towards the pylorus. Cheo Barrera Jr., MD Abdomen Ultrasound 03/20/17 0000 Signed Impressions: Service Date/Time: Monday, March 20, 2017 11:38 - CONCLUSION: 1. Hepatosplenomegaly without focal lesion. 2. Probable sludge within the lumen of the gallbladder. No intrahepatic duct. Cheo Martínez MD Shoulder X-Ray 03/02/17 1404 Signed Impressions: Service Date/Time: Thursday, March 02, 2017 15:18 - CONCLUSION: No evidence of recent bony injury. Deformity of the lateral left clavicle suggests old healed trauma. Cheo Martínez MD Maxillofacial CT 03/02/17 134 Signed Impressions: Service Date/Time: Thursday, March 02, 2017 14:52 - CONCLUSION: Negative CT of the facial bones. Cheo Martínez MD Head CT 03/02/17 134 Signed Impressions: Service Date/Time: Thursday, March 02, 2017 14:52 - CONCLUSION: 1. Prominent scalp swelling left frontal and parietal region. No skull fracture seen. 2. Intracranial contents are intact without acute finding. Cheo Martínez MD Chest CT 03/02/17 1342 Signed Impressions: Service Date/Time: Thursday, March 02, 2017 15:04 - CONCLUSION: 1. Abnormal appearance of the lateral left clavicle suggesting a combination of acute and chronic bony injury. Fracture lucencies without bridging callus is seen the region of the coracoid process. 2. The lungs are clear. No evidence of pneumothorax. 3. Moderate size hiatus hernia. Cheo Martínez MD Cervical Spine CT 03/02/17 134 Signed Impressions: Service Date/Time: Thursday, March 02, 2017 14:52 - CONCLUSION: Negative CT cervical spine. Cheo Martínez MD Abdomen/Pelvis CT 03/02/17 134 Signed Impressions: Service Date/Time: Thursday, March 02, 2017 15:04 - CONCLUSION: Moderate size hiatus hernia. Scattered small sigmoid diverticula. Otherwise negative exam. Cheo Martínez MD Objective Remarks GENERAL: 61-year-old male, critically ill currently resting in bed orotracheally intubated HEENT: Healing abrasion left side scalp. TIMOTHY. Scleral icterus. Oropharynx with old dried secretions NECK: No JVD/thyromegaly/lymph adenopathy. Trachea Midline CHEST: Coarse crackles appreciated throughout all lung beckett. Few wheezes. CARDIOVASCULAR: Tachycardia, RR. S1, S2. No S4. Without murmur ABDOMEN: Slightly distended/protuberant. Soft. Vague diffuse tenderness. Voluntary guarding. No rigidity. Hypoactive bowel sounds. MUSCULOSKELETAL: Posterior tibialis 2+ palpable. NEUROLOGICAL: Status post paralysis. Prior was opening eyes and moaning. Not following commands. Voluntary withdrawal to pain. Urinary Catheter: Yes Assessment to: Continue Johns insert reason: Prolonged Immobilization Vascular Central Line Catheter: Yes Assessment to: Continue Date of Insertion: Mar 25, 2017 Line: Central Venous Catheter Side: Left Location: Internal A/P Assessment and Plan Neuro/Psych: Osmotic demyelination syndrome Acute toxic metabolic encephalopathy secondary to hypercarbic respiratory failure Alcohol dependence History of EtOH induced seizure withdrawal Chronic benzodiazepine use Currently on Versed 7 mg/h/fentanyl 150 mg an hour drips for sedation/analgesia while intubated Nimbex drip at 4 Goal of RA SS -5 MRI 03/21 - T1/T2 prolonged with sparing of this central appears final fibers. 2 small spots in the posterior central spinal tract consistent with Osmotic demyelination syndrome. ODS most likely from rapid correction of Na, with underlying alcoholism CT head 03/05 revealed no acute intracranial findings Continue thiamine/folate and multivitamin. Seen by neurology/Dr. Mazariegos. No further recommendations at this time. Respiratory: Acute hypoxemic hypercapnic respiratory failure PRVC 16/550/1.3/15/100 Ventilator bundle Bronchodilator therapy every 4 hours and as needed Added hypertonic saline for secretions Chest x-ray reveals right lower lobe infiltrate versus effusion Patient likely aspirated. We'll monitor closely for further aspiration Continue feeding via Dobbhoff tube Cardiovascular: Sinus tachycardia Chronic Systolic heart failure Echocardiogram 03/04 revealed EF 35-40%. Mild mR. Left atrium dilated. JANE 33 mmHg TSH within normal limits 0.8 On Lopressor 2.5 IV every 6 Renal: Acute Kidney Injury- Rhabdomyolysis- resolved ODS-see neuro Accurate I's and O's Monitor urine output closely. Only 3 50 cc past 24 hours Follow BMP in a.m. Currently on free water 200 every 6 One half normal saline 125 cc an hour Bolused 1 L LR today GI: Likely EtOH cirrhosis Hyperammonemia Hiatal hernia Sigmoid diverticulosis History of umbilical hernia repair Placed on Xifaxan 550 twice a day/lactulose 30 twice a day. Recheck ammonia 10 LFT is elevated. Ultrasound liver-hepatosplenomegaly. Sludge in gallbladder Patient on Prilosec 20 mg by mouth daily at home. Currently in IV Protonix Continue tube feeds with Jevity 1.5 goal 60 cc an hour Heme: Macrocytic anemia Leukocytosis Possibly leukemoid/stress versus aspiration Hemoglobin currently 7.5. Will order 1 unit PRBCs today. Attempted to obtain permission from daughter who resides in half-way Monitor CBC daily. Follow trends B12 1452, Folate 15.2. TSH 0.8. ID: Likely aspiration pneumonia Escherichia coli UTI 03/11 - completed therapy Pertinent cultures 03/25 - sputum - pending 03/25 - urine - pending 03/25 - blood cultures 2 - pending 03/22 - urine - no growth 03/22 - blood cultures 2 - negative 03/20 - blood cultures 2 - no growth 03/11 - urine - Escherichia coli 03/02 - blood cultures 2 - no growth Followed by Dr. Lisa/ID. Current cefepime/Flagyl. On 424 switched to Zyvox day #2, Merrem day #2 and Flagyl day number 7. Vancomycin discontinued yesterday. Endocrine: Hyperglycemia of critical illness History of hypothyroidism SSI with Accu-Cheks every 4 hours to maintain euglycemia FEN: Hypokalemia Hypo-magnesium Hypophosphatemia Replace electrolytes as clinically indicated 40mEq KCl IV 1. 2 g mag sulfate IV. K-Phos IV 1. Recheck MSK: History of old left clavicle fracture PT/OT evaluate and treat Access Left IJ TLC day 2 placed 03/25 Prophylaxis: GI - Protonix DVT - SCD/heparin subcutaneous Critical Care: The total critical care time was 35 minutes. Time to perform other separately billable procedures was not included in the critical care time. Larry Ruby MD Mar 26, 2017 09:49
[2017-03-26] MEDS: LACTOBACILLUS ACIDOPHILUS TAB PO SCH ×3 (10:05→17:44)
[2017-03-26] MEDS: RIFAXIMIN 550 MG TAB PO SCH ×2 (10:06→21:31)
[2017-03-26] MEDS: PANTOPRAZOLE SODIUM 40 MG VIAL IV SCH (10:06)
[2017-03-26] MEDS: DOCUSATE SODIUM 100 MG CAP PO SCH ×2 (10:06→21:00)
[2017-03-26] MEDS: SODIUM CHLORIDE 0.9% FLUSH 10 ML FLUSH IV FLUSH SCH ×2 (10:07→21:00)
--- NOTE | 2017-03-26 10:39 | HHI.IDPN ---
Subjective Subjective Remarks Notes reviewed D/W RN Temps better overnight On sedation and nimbex On neosynephrine Antibiotics Meropenem Zyvox Flagyl Lines [facility] Past Medical History ETOHism Allergies: Coded Allergies: PEANUTS (Unverified Allergy, Severe, 03/02/17) *MDRO Multi-Drug Resistant Organism (Verified Adverse Reaction, Unknown, ) MRSA PCR screen POSITIVE - 03/02/17 Objective . Vital Signs Date Time Temp Pulse Resp B/P Pulse Ox O2 Delivery O2 Flow Rate FiO2 03/26/17 07:49 98 50 03/26/17 06:00 102 03/26/17 04:37 97 50 03/26/17 04:00 109 03/26/17 04:00 50 03/26/17 04:00 98.7 109 18 98/68 97 03/26/17 04:00 Mechanical Ventilator 15.00 50 03/26/17 00:04 97 50 03/26/17 00:00 Mechanical Ventilator 15.00 50 03/26/17 00:00 108 03/26/17 00:00 98.3 108 18 88/58 97 03/26/17 00:00 50 03/25/17 22:00 112 03/25/17 21:00 Mechanical Ventilator 15.00 50 03/25/17 21:00 50 03/25/17 21:00 109 03/25/17 21:00 98.7 109 18 89/56 94 03/25/17 19:31 97 50 03/25/17 18:00 112 03/25/17 16:00 112 03/25/17 16:00 101.0 122 18 80/55 96 03/25/17 16:00 Mechanical Ventilator 70 03/25/17 15:55 94 70 03/25/17 14:00 112 03/25/17 12:00 103.0 145 32 104/71 94 03/25/17 12:00 Mechanical Ventilator 70 03/25/17 12:00 112 03/25/17 03/25/17 03/26/17 15:00 23:00 07:00 Intake Total 3077 ml 1733 ml Output Total 375 ml 175 ml Balance 2702 ml 1558 ml IV Total 2629 ml 1482 ml Tube Feeding 448 ml 251 ml Output Urine Total 175 ml 175 ml Stool Total 200 ml . Laboratory Tests Test 03/25/17 03/26/17 07:50 03:30 White Blood Count 5.1 TH/MM3 9.7 TH/MM3 Red Blood Count 2.35 MIL/MM3 1.85 MIL/MM3 Hemoglobin 9.3 GM/DL 7.5 GM/DL Hematocrit 27.2 % 21.2 % Mean Corpuscular Volume 115.8 FL 114.5 FL Mean Corpuscular Hemoglobin 39.8 PG 40.4 PG Mean Corpuscular Hemoglobin 34.4 % 35.3 % Concent Red Cell Distribution Width 14.5 % 15.3 % Platelet Count 105 TH/MM3 152 TH/MM3 Mean Platelet Volume 9.2 FL 8.9 FL Neutrophils (%) (Auto) 71.9 % 74.9 % Lymphocytes (%) (Auto) 15.9 % 17.3 % Monocytes (%) (Auto) 11.0 % 6.5 % Eosinophils (%) (Auto) 0.6 % 0.6 % Basophils (%) (Auto) 0.6 % 0.7 % Neutrophils # (Auto) 3.7 TH/MM3 7.3 TH/MM3 Lymphocytes # (Auto) 0.8 TH/MM3 1.7 TH/MM3 Monocytes # (Auto) 0.6 TH/MM3 0.6 TH/MM3 Eosinophils # (Auto) 0.0 TH/MM3 0.1 TH/MM3 Basophils # (Auto) 0.0 TH/MM3 0.1 TH/MM3 CBC Comment AUTO DIFF AUTO DIFF Differential Total Cells 100 Counted Neutrophils % (Manual) 60 % Band Neutrophils % 9 % Lymphocytes % 22 % Monocytes % 8 % Eosinophils % 1 % Neutrophils # (Manual) 3.5 TH/MM3 Nucleated Red Blood Cells 1 /100 WBC Differential Comment FINAL DIFF AUTO DIFF MANUAL CONFIRMED Platelet Estimate LOW Platelet Morphology Comment NORMAL Red Cell Morphology Comment Hematology Comments Toxic Granulation 2+ Laboratory Tests Test 03/24/17 03/25/17 03/25/17 03/25/17 13:58 04:34 10:00 11:00 Lactic Acid Level 3.4 mmol/L 3.9 mmol/L 2.9 mmol/L Sodium Level 143 MEQ/L Potassium Level 3.8 MEQ/L Chloride Level 111 MEQ/L Carbon Dioxide Level 22.8 MEQ/L Anion Gap 9 MEQ/L Blood Urea Nitrogen 16 MG/DL Creatinine 0.58 MG/DL Estimat Glomerular Filtration 143 ML/MIN Rate Random Glucose 127 MG/DL Calcium Level 7.3 MG/DL Protein Corrected Calcium 7.9 MG/DL Total Protein 5.9 GM/DL Ammonia 30 MCMOL/L Total Creatine Kinase 139 U/L Test 03/26/17 03:30 Sodium Level 141 MEQ/L Potassium Level 3.5 MEQ/L Chloride Level 109 MEQ/L Carbon Dioxide Level 21.8 MEQ/L Anion Gap 10 MEQ/L Blood Urea Nitrogen 24 MG/DL Creatinine 1.17 MG/DL Estimat Glomerular Filtration 64 ML/MIN Rate Random Glucose 134 MG/DL Lactic Acid Level 3.5 mmol/L Calcium Level 7.4 MG/DL Protein Corrected Calcium 8.2 MG/DL Phosphorus Level 1.4 MG/DL Magnesium Level 1.5 MG/DL Total Bilirubin 1.8 MG/DL Aspartate Amino Transf 101 U/L (AST/SGOT) Alanine Aminotransferase 47 U/L (ALT/SGPT) Alkaline Phosphatase 82 U/L Ammonia 10 MCMOL/L Total Creatine Kinase 298 U/L Troponin I 0.09 NG/ML Total Protein 5.7 GM/DL Albumin 1.5 GM/DL Microbiology Date/Time Procedure Status Source Growth 03/25/17 11:50 Aerobic Blood Culture Received Blood Peripheral Pending 03/25/17 11:50 Anaerobic Blood Culture Received Blood Peripheral Pending 03/25/17 11:54 Aerobic Blood Culture Received Blood Peripheral Pending 03/25/17 11:54 Anaerobic Blood Culture Received Blood Peripheral Pending 03/25/17 13:00 Urine Culture Received Urine Catheterized Urine Pending 03/25/17 17:00 Gram Stain - Final Resulted Sputum Expectorated Sputum 03/25/17 17:00 Sputum Culture Resulted Sputum Expectorated Sputum Pending Imaging Chest X-Ray 03/26/17 0600 Signed Impressions: Service Date/Time: Sunday, March 26, 2017 05:35 - CONCLUSION: Improving bilateral pulmonary infiltrates Víctor Rosas MD Lower Extremity Ultrasound 03/25/17 0000 Signed Impressions: Service Date/Time: Saturday, March 25, 2017 22:17 - CONCLUSION: No evidence of DVT. Víctor Rosas MD CT Angiography 03/21/17 0000 Signed Impressions: Service Date/Time: March 00:33 - CONCLUSION: No evidence of pulmonary embolism is identified. Mild atelectasis left lung base. Fluid or phlegm within the trachea. Milo Muhammad MD Brain MRI 03/20/17 0000 Signed Impressions: Service Date/Time: Monday, March 20, 2017 16:11 - CONCLUSION: Abnormal appearance to the ruthy with some extension into the cortical spinal tracts of the posterior thalamus was bilaterally. 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 Cheo Martínez MD Abdomen X-Ray 03/20/17 0000 Signed Impressions: Service Date/Time: Monday, March 20, 2017 18:12 - CONCLUSION: Tip of the Dobbhoff tube projecting towards the pylorus. Cheo Barrera Jr., MD Abdomen Ultrasound 03/20/17 0000 Signed Impressions: Service Date/Time: Monday, March 20, 2017 11:38 - CONCLUSION: 1. Hepatosplenomegaly without focal lesion. 2. Probable sludge within the lumen of the gallbladder. No intrahepatic duct. Cheo Martínez MD Shoulder X-Ray 03/02/17 1404 Signed Impressions: Service Date/Time: Thursday, March 02, 2017 15:18 - CONCLUSION: No evidence of recent bony injury. Deformity of the lateral left clavicle suggests old healed trauma. Cheo Martínez MD Maxillofacial CT 03/02/17 1342 Signed Impressions: Service Date/Time: Thursday, March 02, 2017 14:52 - CONCLUSION: Negative CT of the facial bones. Cheo Martínez MD Head CT 03/02/17 1342 Signed Impressions: Service Date/Time: Thursday, March 02, 2017 14:52 - CONCLUSION: 1. Prominent scalp swelling left frontal and parietal region. No skull fracture seen. 2. Intracranial contents are intact without acute finding. Cheo Martínez MD Chest CT 03/02/17 1342 Signed Impressions: Service Date/Time: Thursday, March 02, 2017 15:04 - CONCLUSION: 1. Abnormal appearance of the lateral left clavicle suggesting a combination of acute and chronic bony injury. Fracture lucencies without bridging callus is seen the region of the coracoid process. 2. The lungs are clear. No evidence of pneumothorax. 3. Moderate size hiatus hernia. Cheo Martínez MD Cervical Spine CT 03/02/17 1342 Signed Impressions: Service Date/Time: Thursday, March 02, 2017 14:52 - CONCLUSION: Negative CT cervical spine. Cheo Martínez MD Abdomen/Pelvis CT 03/02/17 1342 Signed Impressions: Service Date/Time: Thursday, March 02, 2017 15:04 - CONCLUSION: Moderate size hiatus hernia. Scattered small sigmoid diverticula. Otherwise negative exam. Cheo Martínez MD Chest X-Ray 03/25/17 1004 Signed Impressions: Service Date/Time: Saturday, March 25, 2017 10:03 - CONCLUSION: 1. Worsening bibasilar consolidation. 2. Endotracheal tube with tip at the thoracic inlet and should be advanced at least 3-4 cm. 3. Adequate placement of left jugular central line without pneumothorax. Logan Morgan MD Chest X-Ray 03/23/17 0000 Signed Impressions: Service Date/Time: Thursday, March 23, 2017 14:27 - CONCLUSION: 1. Feeding tube in place with what appears to be a loop in the hypopharynx. 2. Bibasilar areas of consolidation or atelectasis. Casper Vargas MD Physical Exam GENERAL: sedated on the vent SKIN: Warm and dry. No generalized rash. Has some edema in his upper extremities. HEENT: Pupils equal round and reactive. Mild scleral icterus. Has scleral edema. No injection or drainage. Orally intubated. Poor dentition NECK: Trachea midline. No JVD or lymphadenopathy. Supple, nontender, no meningeal signs. CARDIOVASCULAR: Regular rate and rhythm without murmurs, gallops, or rubs. Tachycardic. RESPIRATORY: Has scattered rhonchi, decreased BS at bases, worse on R than on L. . GASTROINTESTINAL: Abdomen mildly distended, bowel sounds are present and normoactive, no reaction to palpation MUSCULOSKELETAL: Lower extremities without clubbing, cyanosis, or edema. No joint effusion, or edema noted. No calf tenderness. NEUROLOGICAL: Sedated PSYCH: Unable to assess : Johns cath in place with a lot of sediment LINE: central line inserted today Assessment & Plan Remarks IMPRESSION Sepsis syndrome, due to PNA - now on vent Septic shock Known ETOH abuse Encephalopathy - sepsis, ETOH, ODS Respiratory failure RECOMMENDATION Follow C/S Continue Merem Continue Zyvox - follow CBC Continue Flagyl and Lactinex Follow temps Monitor progress D/W Umm Lui MD Mar 26, 2017 10:39
--- NOTE | 2017-03-26 11:37 | HHI.HCPN ---
Left message with Ms. Ramos, group home case sealer, to set up time for phone conference to discuss plan of care for Mr. Sandhu with daughter Amie. Currently awaiting return call. Anna Marie Barrera TICKET ATTENDANT, ETL APPLICATION DEVELOPER Mar 26, 2017 11:37
[2017-03-26] MEDS: RESP: SODIUM CHLORIDE 3% 4 ML NEB NEB SCH ×4 (11:55→23:48)
[2017-03-26] MEDS: ALBUMIN HUMAN 25% 25 GM/100 ML BAGP IV SCH ×2 (12:58→17:42)
[2017-03-26] MEDS: MIDAZOLAM 100 MG/ML INJ 100 ML IV SCH (13:13)
--- NOTE | 2017-03-26 15:44 | HHI.HCPN ---
Reason for visit a. To assist with evaluation and management of symptoms including: dyspnea, pain. b. To assist medical decision maker(s) with: better understanding of current medical conditions; weighing benefits/burdens of medical treatment options; making medical treatment decisions. . Subjective/Interval History Patient seen and examined in ICU. No family at bedside. Patient remains on [facility] vent FiO2 50%. He is on Fentanyl, Versed, Nimbex (for vent synchrony), Norsynephrine. Nurse indicates any changes in meds leads to distress. Tmax 100.2. Tachycardic. Liquid stool in bag. Hemoglobin 7.5, hematocrit 21.2, blood ordered. Creatinine 1.17. Total bilirubin 1.8. Albumin 1.5. 03/25/17 sputum culture gram negative rods. Chest xray improving bilateral pulmonary infiltrates. Discussed with Dr. Ruby and nurse, Yared. . Family/friend interactions Spoke with karlie Nolen via phone (from [facility]). Medical update provided. She called her aunt and then called me back to report she elects NO CODE status. She desires continued aggressive care short of NO CODE for now. She tells me she will be going to court and possibly transferred to [facility] later this week. Questions answered to her satisfaction. She also provided blood consent while on phone witnessed by me and Yared (nurse). . Advance Directives Living Will: Never completed Health Care Surrogate: Never completed Durable Power of [employer]: Never completed Advance Directive Specifics Health Care Surrogate(s): There is no designation of Healthcare Services at this point in time. Decision- making may fall to his daughter, Amie if there are no other children. However, Amie may be currently incarcerated and will be necessary to go to the group home system to allow her to make consent. Significant change in goals: Daughter elects NO CODE. Continue aggressive care short of NO CODE for now. . Objective Vital Signs Date Time Temp Pulse Resp B/P Pulse Ox O2 Delivery O2 Flow Rate FiO2 03/26/17 14:00 109 03/26/17 13:29 100 50 03/26/17 12:00 109 03/26/17 12:00 Mechanical Ventilator 15.00 50 03/26/17 12:00 50 03/26/17 12:00 100.2 96 16 103/68 95 03/26/17 11:56 96 50 03/26/17 10:00 109 03/26/17 08:00 Mechanical Ventilator 15.00 50 03/26/17 08:00 109 03/26/17 08:00 99.4 105 24 93/65 96 03/26/17 08:00 50 03/26/17 07:49 98 50 03/26/17 06:00 102 03/26/17 04:37 97 50 03/26/17 04:00 109 03/26/17 04:00 50 03/26/17 04:00 98.7 109 18 98/68 97 03/26/17 04:00 Mechanical Ventilator 15.00 50 03/26/17 00:04 97 50 03/26/17 00:00 Mechanical Ventilator 15.00 50 03/26/17 00:00 108 03/26/17 00:00 98.3 108 18 88/58 97 03/26/17 00:00 50 03/25/17 22:00 112 03/25/17 21:00 Mechanical Ventilator 15.00 50 03/25/17 21:00 50 03/25/17 21:00 109 03/25/17 21:00 98.7 109 18 89/56 94 03/25/17 19:31 97 50 03/25/17 18:00 112 03/25/17 16:00 112 03/25/17 16:00 101.0 122 18 80/55 96 03/25/17 16:00 Mechanical Ventilator 70 03/25/17 15:55 94 70 Intake & Output 03/26/17 03/26/17 07:00 19:00 Intake Total 3810 ml 3758 ml Output Total 550 ml 350 ml Balance 3260 ml 3408 ml IV Total 3111 ml 3316 ml Tube Feeding 699 ml 242 ml Other 200 ml Output Urine Total 350 ml 350 ml Stool Total 200 ml # Bowel Movements 1 Physical Exam CONSTITUTIONAL/GENERAL: This is an thin, pale appearing patient, in no apparent distress. TUBES/LINES/DRAINS: ETT, OG, Left IJ central line, Dobbhoff tube, Johns, rectal tube, SCDs. SKIN: Red rash on face. Ecchymosis bilateral UEs. Skin temperature appropriate. Not diaphoretic. ENT: Unable to assess hearing. Nose without bleeding or purulent drainage. Throat difficult to visualize due to tubes. NECK: Trachea midline. CARDIOVASCULAR: Regular rate and rhythm without murmurs, gallops, or rubs. No JVD. Peripheral pulses symmetric. RESPIRATORY/CHEST: Symmetric, unlabored respirations. Coarse rhonchi anteriorly. GASTROINTESTINAL: Abdomen soft, non-tender, nondistended.hepato-splenomegaly, Bowel sounds present. GENITOURINARY: Without palpable bladder distension. Johns catheter in place. Erythema groin area. MUSCULOSKELETAL: Generalized edema noted. No mottling or clubbing. NEUROLOGICAL: Sedated and paralyzed on mech vent. PSYCHIATRIC: Sedated. . Diagnostic Tests Laboratory Laboratory Tests Test 03/23/17 03/24/17 03/24/17 03/24/17 18:16 05:07 13:45 13:58 White Blood Count 10.6 TH/MM3 9.5 TH/MM3 (4.0-11.0) (4.0-11.0) Red Blood Count 2.04 MIL/MM3 2.08 MIL/MM3 (4.50-5.90) (4.50-5.90) Hemoglobin 8.4 GM/DL 8.4 GM/DL (13.0-17.0) (13.0-17.0) Hematocrit 23.7 % 23.4 % (39.0-51.0) (39.0-51.0) Mean Corpuscular Volume 116.3 FL 112.8 FL (80.0-100.0) (80.0-100.0) Mean Corpuscular Hemoglobin 41.1 PG 40.7 PG (27.0-34.0) (27.0-34.0) Mean Corpuscular Hemoglobin 35.3 % 36.1 % Concent (32.0-36.0) (32.0-36.0) Red Cell Distribution Width 14.0 % 13.8 % (11.6-17.2) (11.6-17.2) Platelet Count 144 TH/MM3 135 TH/MM3 (150-450) (150-450) Mean Platelet Volume 7.6 FL 8.9 FL (7.0-11.0) (7.0-11.0) Neutrophils (%) (Auto) 80.2 % 78.6 % (16.0-70.0) (16.0-70.0) Lymphocytes (%) (Auto) 13.7 % 14.5 % (9.0-44.0) (9.0-44.0) Monocytes (%) (Auto) 4.8 % (0.0-8.0) 5.6 % (0.0-8.0) Eosinophils (%) (Auto) 0.6 % (0.0-4.0) 0.8 % (0.0-4.0) Basophils (%) (Auto) 0.7 % (0.0-2.0) 0.5 % (0.0-2.0) Neutrophils # (Auto) 8.5 TH/MM3 7.5 TH/MM3 (1.8-7.7) (1.8-7.7) Lymphocytes # (Auto) 1.4 TH/MM3 1.4 TH/MM3 (1.0-4.8) (1.0-4.8) Monocytes # (Auto) 0.5 TH/MM3 0.5 TH/MM3 (0-0.9) (0-0.9) Eosinophils # (Auto) 0.1 TH/MM3 0.1 TH/MM3 (0-0.4) (0-0.4) Basophils # (Auto) 0.1 TH/MM3 0.0 TH/MM3 (0-0.2) (0-0.2) CBC Comment DIFF FINAL AUTO DIFF Differential Comment AUTO DIFF CONFIRMED Sodium Level 143 MEQ/L 143 MEQ/L (136-145) (136-145) Potassium Level 2.7 MEQ/L 3.2 MEQ/L (3.5-5.1) (3.5-5.1) Chloride Level 108 MEQ/L 112 MEQ/L (98-107) (98-107) Carbon Dioxide Level 23.9 MEQ/L 24.0 MEQ/L (21.0-32.0) (21.0-32.0) Anion Gap 11 MEQ/L (5-15) 7 MEQ/L (5-15) Blood Urea Nitrogen 13 MG/DL (7-18) 12 MG/DL (7-18) Creatinine 0.65 MG/DL 0.43 MG/DL (0.60-1.30) (0.60-1.30) Estimat Glomerular Filtration 126 ML/MIN 203 ML/MIN Rate (>89) (>89) Random Glucose 132 MG/DL 104 MG/DL (74-106) (74-106) Lactic Acid Level 3.2 mmol/L 3.4 mmol/L (0.4-2.0) (0.4-2.0) Calcium Level 7.9 MG/DL 8.2 MG/DL (8.5-10.1) (8.5-10.1) Total Bilirubin 2.2 MG/DL 2.6 MG/DL (0.2-1.0) (0.2-1.0) Aspartate Amino Transf 114 U/L (15-37) 102 U/L (15-37) (AST/SGOT) Alanine Aminotransferase 60 U/L (12-78) 56 U/L (12-78) (ALT/SGPT) Alkaline Phosphatase 105 U/L 94 U/L (45-117) (45-117) Total Protein 6.4 GM/DL 6.4 GM/DL (6.4-8.2) (6.4-8.2) Albumin 1.9 GM/DL 1.9 GM/DL (3.4-5.0) (3.4-5.0) Platelet Estimate LOW (NORMAL) Platelet Morphology Comment NORMAL (NORMAL) Hematology Comments Vancomycin Level Trough 6.2 MCG/ML (5.0-10.0) Test 03/25/17 03/25/17 03/25/17 03/25/17 00:00 04:34 07:50 10:00 Blood Gas Puncture Site LT RADIAL Blood Gas Patient Temperature 98.6 Blood Gas HCO3 22 mmol/L (22-26) Blood Gas Base Excess -0.9 mmol/L (-2-2) Blood Gas Oxygen Saturation 94 % (90-100) Arterial Blood pH 7.52 (7.380-7.420) Arterial Blood Partial 27 mmHg (38-42) Pressure CO2 Arterial Blood Partial 76 mmHg Pressure O2 (61-120) Arterial Blood Oxygen Content 12.7 Vol % (12.0-20.0) Arterial Blood 2.2 % (0-4) Carboxyhemoglobin Arterial Blood Methemoglobin 0.8 % (0-2) Blood Gas Hemoglobin 9.6 G/DL (12.0-16.0) Oxygen Delivery Device Non-Rebreathing Mask Blood Gas Liter Flow 15 L/M Blood Gas Inspired Oxygen 100 % Sodium Level 143 MEQ/L (136-145) Potassium Level 3.8 MEQ/L (3.5-5.1) Chloride Level 111 MEQ/L (98-107) Carbon Dioxide Level 22.8 MEQ/L (21.0-32.0) Anion Gap 9 MEQ/L (5-15) Blood Urea Nitrogen 16 MG/DL (7-18) Creatinine 0.58 MG/DL (0.60-1.30) Estimat Glomerular Filtration 143 ML/MIN Rate (>89) Random Glucose 127 MG/DL (74-106) Lactic Acid Level 3.9 mmol/L (0.4-2.0) Calcium Level 7.3 MG/DL (8.5-10.1) Protein Corrected Calcium 7.9 MG/DL (8.5-10.1) Total Protein 5.9 GM/DL (6.4-8.2) White Blood Count 5.1 TH/MM3 (4.0-11.0) Red Blood Count 2.35 MIL/MM3 (4.50-5.90) Hemoglobin 9.3 GM/DL (13.0-17.0) Hematocrit 27.2 % (39.0-51.0) Mean Corpuscular Volume 115.8 FL (80.0-100.0) Mean Corpuscular Hemoglobin 39.8 PG (27.0-34.0) Mean Corpuscular Hemoglobin 34.4 % Concent (32.0-36.0) Red Cell Distribution Width 14.5 % (11.6-17.2) Platelet Count 105 TH/MM3 (150-450) Mean Platelet Volume 9.2 FL (7.0-11.0) Neutrophils (%) (Auto) 71.9 % (16.0-70.0) Lymphocytes (%) (Auto) 15.9 % (9.0-44.0) Monocytes (%) (Auto) 11.0 % (0.0-8.0) Eosinophils (%) (Auto) 0.6 % (0.0-4.0) Basophils (%) (Auto) 0.6 % (0.0-2.0) Neutrophils # (Auto) 3.7 TH/MM3 (1.8-7.7) Lymphocytes # (Auto) 0.8 TH/MM3 (1.0-4.8) Monocytes # (Auto) 0.6 TH/MM3 (0-0.9) Eosinophils # (Auto) 0.0 TH/MM3 (0-0.4) Basophils # (Auto) 0.0 TH/MM3 (0-0.2) CBC Comment AUTO DIFF Differential Total Cells 100 Counted Neutrophils % (Manual) 60 % (16-70) Band Neutrophils % 9 % (0-6) Lymphocytes % 22 % (9-44) Monocytes % 8 % (0-8) Eosinophils % 1 % (0-4) Neutrophils # (Manual) 3.5 TH/MM3 (1.8-7.7) Nucleated Red Blood Cells 1 /100 WBC (0-0) Differential Comment FINAL DIFF MANUAL Platelet Estimate LOW (NORMAL) Platelet Morphology Comment NORMAL (NORMAL) Red Cell Morphology Comment (NORMAL) Hematology Comments Ammonia 30 MCMOL/L (11-32) Total Creatine Kinase 139 U/L (39-308) Test 03/25/17 03/25/17 03/25/17 03/25/17 11:00 11:50 13:00 17:00 Prothrombin Time 13.4 SEC (9.8-11.6) Prothromb Time International 1.2 RATIO Ratio Activated Partial 37.3 SEC Thromboplast Time (24.3-30.1) Lactic Acid Level 2.9 mmol/L (0.4-2.0) Blood Gas Puncture Site RT RADIAL Blood Gas Patient Temperature 98.6 Blood Gas HCO3 20 mmol/L (22-26) Blood Gas Base Excess -4.8 mmol/L (-2-2) Blood Gas Oxygen Saturation 93 % (90-100) Arterial Blood pH 7.35 (7.380-7.420) Arterial Blood Partial 37 mmHg (38-42) Pressure CO2 Arterial Blood Partial 85 mmHg Pressure O2 (61-120) Arterial Blood Oxygen Content 11.9 Vol % (12.0-20.0) Arterial Blood 1.8 % (0-4) Carboxyhemoglobin Arterial Blood Methemoglobin 1.0 % (0-2) Blood Gas Hemoglobin 9.0 G/DL (12.0-16.0) Oxygen Delivery Device VENTILATOR Blood Gas Ventilator Setting PRVC16/550/PEEP10 Blood Gas Inspired Oxygen 70 % Urine Color KRISTEN (YELLW/STRAW) Urine Turbidity CLOUDY (CLEAR) Urine pH 6.0 (5.0-8.5) Urine Specific [place] 1.023 (1.002-1.035) Urine Protein 100 mg/dL (NEG-TRACE) Urine Glucose (UA) NEG mg/dL (NEG) Urine Ketones TRACE mg/dL (NEG) Urine Occult Blood MOD (NEG) Urine Nitrite NEG (NEG) Urine Bilirubin SMALL (NEG) Urine Urobilinogen LESS THAN 2.0 MG/DL (LESS THAN 2.0) Urine Leukocyte Esterase TRACE (NEG) Urine RBC 80 /hpf (0-3) Urine WBC 7 /hpf (0-5) Urine Squamous Epithelial 1 /hpf (0-5) Cells Urine Amorphous Sediment FEW Urine Bacteria MOD /hpf (NONE) Urine Granular Casts 6 /lpf (NONE) Urine Mucus FEW /lpf (OCC) Microscopic Urinalysis Comment CATH-CULTURE IND Stool C. difficile Toxin (PCR) NEGATIVE (NEGATIVE) Stl C. difficile Toxin PRESUMPTIVE Epiderm 027 NEGATIVE (NEGATIVE) Test 03/26/17 03/26/17 03/26/17 03:30 08:00 10:23 White Blood Count 9.7 TH/MM3 (4.0-11.0) Red Blood Count 1.85 MIL/MM3 (4.50-5.90) Hemoglobin 7.5 GM/DL (13.0-17.0) Hematocrit 21.2 % (39.0-51.0) Mean Corpuscular Volume 114.5 FL (80.0-100.0) Mean Corpuscular Hemoglobin 40.4 PG (27.0-34.0) Mean Corpuscular Hemoglobin 35.3 % Concent (32.0-36.0) Red Cell Distribution Width 15.3 % (11.6-17.2) Platelet Count 152 TH/MM3 (150-450) Mean Platelet Volume 8.9 FL (7.0-11.0) Neutrophils (%) (Auto) 74.9 % (16.0-70.0) Lymphocytes (%) (Auto) 17.3 % (9.0-44.0) Monocytes (%) (Auto) 6.5 % (0.0-8.0) Eosinophils (%) (Auto) 0.6 % (0.0-4.0) Basophils (%) (Auto) 0.7 % (0.0-2.0) Neutrophils # (Auto) 7.3 TH/MM3 (1.8-7.7) Lymphocytes # (Auto) 1.7 TH/MM3 (1.0-4.8) Monocytes # (Auto) 0.6 TH/MM3 (0-0.9) Eosinophils # (Auto) 0.1 TH/MM3 (0-0.4) Basophils # (Auto) 0.1 TH/MM3 (0-0.2) CBC Comment AUTO DIFF Differential Comment AUTO DIFF CONFIRMED Toxic Granulation 2+ (NORMAL) Hematology Comments Sodium Level 141 MEQ/L (136-145) Potassium Level 3.5 MEQ/L (3.5-5.1) Chloride Level 109 MEQ/L (98-107) Carbon Dioxide Level 21.8 MEQ/L (21.0-32.0) Anion Gap 10 MEQ/L (5-15) Blood Urea Nitrogen 24 MG/DL (7-18) Creatinine 1.17 MG/DL (0.60-1.30) Estimat Glomerular Filtration 64 ML/MIN (>89) Rate Random Glucose 134 MG/DL (74-106) Lactic Acid Level 3.5 mmol/L (0.4-2.0) Calcium Level 7.4 MG/DL (8.5-10.1) Protein Corrected Calcium 8.2 MG/DL (8.5-10.1) Phosphorus Level 1.4 MG/DL (2.5-4.9) Magnesium Level 1.5 MG/DL (1.5-2.5) Total Bilirubin 1.8 MG/DL (0.2-1.0) Aspartate Amino Transf 101 U/L (15-37) (AST/SGOT) Alanine Aminotransferase 47 U/L (12-78) (ALT/SGPT) Alkaline Phosphatase 82 U/L (45-117) Ammonia 10 MCMOL/L (11-32) Total Creatine Kinase 298 U/L (39-308) Troponin I 0.09 NG/ML (0.02-0.05) Total Protein 5.7 GM/DL (6.4-8.2) Albumin 1.5 GM/DL (3.4-5.0) Blood Type O POSITIVE O POSITIVE Antibody Screen POSITIVE [place] Antibody Screen NEGATIVE Crossmatch Leukocyte-Reduced Red Blood Cells Blood Bank Comment Antibody Identification Strong Non-Specific Cold Agglu Result Diagram: 03/26/17 0330 03/26/17 033 Microbiology Microbiology Date/Time Procedure Status Source Growth 03/25/17 11:50 Aerobic Blood Culture - Preliminary Resulted Blood Peripheral NO GROWTH IN 1 DAY 03/25/17 11:50 Anaerobic Blood Culture - Preliminary Resulted Blood Peripheral NO GROWTH IN 1 DAY 03/25/17 11:54 Aerobic Blood Culture - Preliminary Resulted Blood Peripheral NO GROWTH IN 1 DAY 03/25/17 11:54 Anaerobic Blood Culture - Preliminary Resulted Blood Peripheral NO GROWTH IN 1 DAY 03/25/17 13:00 Urine Culture - Preliminary Resulted Urine Catheterized Urine NO GROWTH IN 24 HOURS. 03/25/17 17:00 Gram Stain - Final Resulted Sputum Expectorated Sputum 03/25/17 17:00 Sputum Culture - Preliminary Resulted Gram Negative [facility] Last Impressions Chest X-Ray 03/26/17 0600 Signed Impressions: Service Date/Time: Sunday, March 26, 2017 05:35 - CONCLUSION: Improving bilateral pulmonary infiltrates Víctor Rosas MD Lower Extremity Ultrasound 03/25/17 0000 Signed Impressions: Service Date/Time: Saturday, March 25, 2017 22:17 - CONCLUSION: No evidence of DVT. Víctor Rosas MD CT Angiography 03/21/17 0000 Signed Impressions: Service Date/Time: March 00:33 - CONCLUSION: No evidence of pulmonary embolism is identified. Mild atelectasis left lung base. Fluid or phlegm within the trachea. Milo Muhammad MD Brain MRI 03/20/17 0000 Signed Impressions: Service Date/Time: Monday, March 20, 2017 16:11 - CONCLUSION: Abnormal appearance to the ruthy with some extension into the cortical spinal tracts of the posterior thalamus was bilaterally. 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 Cheo Martínez MD Abdomen X-Ray 03/20/17 0000 Signed Impressions: Service Date/Time: Monday, March 20, 2017 18:12 - CONCLUSION: Tip of the Dobbhoff tube projecting towards the pylorus. Cheo Barrera Jr., MD Abdomen Ultrasound 03/20/17 0000 Signed Impressions: Service Date/Time: Monday, March 20, 2017 11:38 - CONCLUSION: 1. Hepatosplenomegaly without focal lesion. 2. Probable sludge within the lumen of the gallbladder. No intrahepatic duct. Cheo Martínez MD Shoulder X-Ray 03/02/17 1404 Signed Impressions: Service Date/Time: Thursday, March 02, 2017 15:18 - CONCLUSION: No evidence of recent bony injury. Deformity of the lateral left clavicle suggests old healed trauma. Cheo Martínez MD Maxillofacial CT 03/02/17 1342 Signed Impressions: Service Date/Time: Thursday, March 02, 2017 14:52 - CONCLUSION: Negative CT of the facial bones. Cheo Martínez MD Head CT 03/02/17 134 Signed Impressions: Service Date/Time: Thursday, March 02, 2017 14:52 - CONCLUSION: 1. Prominent scalp swelling left frontal and parietal region. No skull fracture seen. 2. Intracranial contents are intact without acute finding. Cheo Martínez MD Chest CT 03/02/17 134 Signed Impressions: Service Date/Time: Thursday, March 02, 2017 15:04 - CONCLUSION: 1. Abnormal appearance of the lateral left clavicle suggesting a combination of acute and chronic bony injury. Fracture lucencies without bridging callus is seen the region of the coracoid process. 2. The lungs are clear. No evidence of pneumothorax. 3. Moderate size hiatus hernia. Cheo Martínez MD Cervical Spine CT 03/02/171341 Signed Impressions: Service Date/Time: Thursday, March 02, 2017 14:52 - CONCLUSION: Negative CT cervical spine. Cheo Martínez MD Abdomen/Pelvis CT 03/02/171341 Signed Impressions: Service Date/Time: Thursday, March 02, 2017 15:04 - CONCLUSION: Moderate size hiatus hernia. Scattered small sigmoid diverticula. Otherwise negative exam. 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 Also unable to express discomfort (2) Dyspnea 0-10 Scale: Unable to quantify (remains with an nasal canula. 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 Spiritual: No reported Legal: At this time we are aware of. One child who would be healthcare decision -maker due to [place] statutes. Reportedly she recently was arraigned this likely being processed in the [place] group home system. We will have to determine her location and contact information as current information is likely not valid Ethical issues impacting care: Important Contacts * Tamanna Sandhu, daughter/ HCP: [phone] or possibly transferred to [facility] facility ([phone]) later this week. * Guillermo Roberts, daughter friend: [phone] (cell) Prognosis Prognosis: Fair. In the absence of further respiratory failure, he will likely transition to a [facility] facility. However, he does have end-stage liver disease. He has high risk for aspiration. He will need extensive neuro rehabilitation. Code Status: No Code Plan * Patient is incapacitated, will not regain capacity. . According to [place] statutes, health care proxy decision making falls to his only daughter. * NO CODE. * Spoke with daughter Tamanna via phone ([facility] [phone]) . Medical update provided. She called her aunt and then called me back to report she elects NO CODE status. She desires continued aggressive care short of NO CODE for now. She tells me she will be going to court and possibly transferred to [facility] facility ([phone]) later this week. She also provided blood consent while on phone witnessed by me and Yared (nurse). * SYMPTOMS: Dyspnea: sedated and paralyzed on mech vent, FiO2 50%. Pain: on Fentanyl 150mcg drip. * Palliative care phone number provided. * Palliative care will continue to follow to assist with symptom management and further clarification of treatment goals. . Attestation To help prompt me to consider important information that might be impacting today's encounter and assessment, information from prior notes written by myself or my colleagues may have been "brought forward" into today's note. My signature on this note, however, is an attestation that I personally performed the exam, history, and/or decision-making noted today, and, unless otherwise indicated, the interactions with patient, family, and staff as well as the review of records all occurred today. I also attest that the listed assessment and stated plan reflect my best clinical judgment today based on the combination of historical information, prior notes, and today's exam/ interactions. When time spent is documented, it refers only to time spent today by the signer, or if indicated, combined time spent today by collaborating physician/nurse practitioner. . JAN LIGHT Mar 26, 2017 15:44
[2017-03-26] MEDS: PHENYLEPHRINE INJ 40 MG in DEXTROSE 5% IN WATE 500 ML INJ 496 ML IV SCH ×2 (17:42)
[2017-03-26] MEDS: THIAMINE INJ 100 MG in SODIUM CHLORIDE 0.9% INJ 100 ML IV SCH (17:42)
[2017-03-26 21:07] LABS: REVIEW FLAG FINAL
[2017-03-26 21:09] LABS: HEMATOCRIT 18.7 % (39.0-51.0)
[2017-03-26 21:43] LABS: BICARBONATE 20.9 MEQ/L (21.0-32.0); POTASSIUM 3.2 MEQ/L (3.5-5.1)
[2017-03-26] MEDS: ACETAMINOPHEN 325 MG TAB PO PRN (23:20)
[2017-03-27] VITALS (18 sets, daily range): BP systolic 88–107; BP diastolic 61–73; PULSE 79–100; RESP 18; TEMP 97.7–102.7; O2SAT 92–100
[2017-03-27] MEDS: MEROPENEM INJ 1,000 MG in SODIUM CHLORIDE 0.9% INJ 100 ML IV SCH ×3 (02:00→15:27)
[2017-03-27] MEDS: RESP: ALBUTEROL 2.5 MG/IPRATROPIUM 0.5 MG NEB (SCH) NEB ×6 (02:50→23:46)
[2017-03-27] MEDS: RESP: SODIUM CHLORIDE 3% 4 ML NEB NEB SCH ×6 (02:50→23:46)
--- NOTE | 2017-03-27 03:39 | RADRPT ---
EXAM DATE/TIME: 03/27/2017 02:33 [facility] COMPARISON: CHEST SINGLE AP, March 26, 2017, 5:35. INDICATIONS : Short of breath. MEDICAL HISTORY : None. SURGICAL HISTORY : None. ENCOUNTER: Subsequent ACUITY: 3 weeks PAIN SCORE: Non-responsive. LOCATION: Bilateral chest FINDINGS: The support devices remain in place. There continues to be scattered bilateral pulmonary infiltrates without significant change compared to the prior exam. No pneumothorax. No significant pleural effusi ons. Heart size stable. CONCLUSION: No significant interval change. Víctor Rosas MD on March 27, 2017 at 3:37 Board Certified Radiologist. This report was verified electronically.
[2017-03-27] MEDS: MIDAZOLAM 100 MG/ML INJ 100 ML IV SCH ×2 (03:51→15:27)
[2017-03-27] MEDS: INSULIN NovoLIN REGULAR SUPPLEMENTAL SCALE SQ SCH ×6 (04:00→20:00)
[2017-03-27] MEDS: METOPROLOL TARTRATE 5 MG/5 ML VIAL IV PUSH SCH ×4 (04:20→23:00)
[2017-03-27] MEDS: FREE WATER NG SCH ×4 (05:11→18:00)
[2017-03-27] MEDS: ALBUMIN HUMAN 25% 25 GM/100 ML BAGP IV SCH ×2 (05:11)
[2017-03-27] MEDS: LINEZOLID 600 MG PREMIX 300 ML IV SCH ×2 (05:11→15:28)
[2017-03-27] MEDS: metroNIDAZOLE 500 MG TAB PO SCH ×3 (05:12→21:34)
[2017-03-27] MEDS: HEPARIN SODIUM - SQ 10,000 UNITS/ML VIAL SQ SCH ×3 (05:12→21:34)
[2017-03-27 05:41] LABS: BICARBONATE 22.4 MEQ/L (21.0-32.0); CALCIUM-PROTEIN CORRECTED 8.2 MG/DL (8.5-10.1); TOTAL BILIRUBIN ADULT 2.3 MG/DL (0.2-1.0)
[2017-03-27 05:52] LABS: AUTOMATED NEUTROPHIL # 4.5 TH/MM3 (1.8-7.7); BASOPHIL # 0.1 TH/MM3 (0-0.2); EOSINOPHIL # 0.1 TH/MM3 (0-0.4); EOSINOPHIL % 1.7 % (0.0-4.0); HEMATOCRIT 23.1 % (39.0-51.0); HEMO FLAGS DIFF FINAL; LYMPH % 14.9 % (9.0-44.0); LYMPHOCYTE # 0.9 TH/MM3 (1.0-4.8); MEAN CELL VOLUME 105.6 FL (80.0-100.0); MEAN CORPUSCULAR HEMOGLOBIN 37.9 PG (27.0-34.0); MEAN CORPUSCULAR HGB CONC 35.9 % (32.0-36.0); NEUT % 76.4 % (16.0-70.0); PLATELET COUNT 115 TH/MM3 (150-450); RED BLOOD COUNT 2.19 MIL/MM3 (4.50-5.90); RED CELL DISTRIBUTION WIDTH 16.3 % (11.6-17.2); WHITE BLOOD COUNT 5.9 TH/MM3 (4.0-11.0)
[2017-03-27] MEDS: CISATRACURIUM INJ 100 MG in SODIUM CHLOR 0.9% 250 ML INJ 240 ML IV SCH (06:22)
[2017-03-27] MEDS: SODIUM CHLOR 0.45% 1000 ML INJ 1,000 ML IV SCH (07:04)
[2017-03-27] MEDS: CHLORHEXIDINE 0.12% (ORAL KIT) 15 ML CUP MT SCH ×2 (08:00→21:35)
[2017-03-27] MEDS: THIAMINE INJ 100 MG in SODIUM CHLORIDE 0.9% INJ 100 ML IV SCH (08:55)
[2017-03-27] MEDS: DOCUSATE SODIUM 100 MG CAP PO SCH ×2 (09:00→21:34)
[2017-03-27] MEDS: LACTULOSE SYRUP 20 GM/30 ML CUP PO SCH ×2 (09:00→21:33)
[2017-03-27] MEDS: RIFAXIMIN 550 MG TAB PO SCH ×2 (09:00→21:34)
[2017-03-27] MEDS: ARTIFICIAL TEARS OPTH SOLN 15 ML BTL EACH EYE SCH ×3 (09:00→18:00)
[2017-03-27] MEDS: SODIUM CHLORIDE 0.9% FLUSH 10 ML FLUSH IVF SCH (09:00)
[2017-03-27] MEDS: MUPIROCIN 2% OINT 1 APPLIC/GM SYR EACH NARE SCH ×2 (09:00→21:35)
[2017-03-27] MEDS: LACTOBACILLUS ACIDOPHILUS TAB PO SCH ×3 (09:00→18:00)
--- NOTE | 2017-03-27 09:48 | HHI.IDPN ---
Subjective Subjective Remarks Notes reviewed Temps low grade On sedation and nimbex On neosynephrine In the vent Has a lot of oral secretions Hodgson in place, has a lot of sediment in the urine BC negative UC neg so far Sputum with GNR CXR reviewed - stable loan infiltrates Antibiotics Meropenem Zyvox Flagyl Lines LIJ TLC Past Medical History ETOHism Allergies: Coded Allergies: PEANUTS (Unverified Allergy, Severe, 03/02/17) *MDRO Multi-Drug Resistant Organism (Verified Adverse Reaction, Unknown, ) MRSA PCR screen POSITIVE - 03/02/17 Objective . Vital Signs Date Time Temp Pulse Resp B/P Pulse Ox O2 Delivery O2 Flow Rate FiO2 03/27/17 06:00 79 03/27/17 04:03 97 40 03/27/17 04:00 98.3 85 18 100/71 100 03/27/17 04:00 85 03/27/17 04:00 40 03/27/17 04:00 Mechanical Ventilator 15.00 40 03/27/17 02:00 83 03/27/17 00:00 Mechanical Ventilator 15.00 40 03/27/17 00:00 40 03/27/17 00:00 96 03/27/17 00:00 100.1 96 18 88/61 95 03/26/17 23:55 95 40 03/26/17 22:00 94 03/26/17 20:00 Mechanical Ventilator 15.00 40 03/26/17 20:00 40 03/26/17 20:00 100.9 96 18 104/66 100 03/26/17 20:00 96 03/26/17 19:40 100 40 03/26/17 18:00 109 03/26/17 16:33 100 50 03/26/17 16:00 50 03/26/17 16:00 Mechanical Ventilator 15.00 50 03/26/17 16:00 98.6 16 12 131/69 95 03/26/17 16:00 109 03/26/17 14:00 109 03/26/17 13:29 100 50 03/26/17 12:00 109 03/26/17 12:00 Mechanical Ventilator 15.00 50 03/26/17 12:00 50 03/26/17 12:00 100.2 96 16 103/68 95 03/26/17 11:56 96 50 03/26/17 10:00 109 03/26/17 03/26/17 03/27/17 15:00 23:00 07:00 Intake Total 3758 ml 1392 ml 2233 ml Output Total 350 ml 400 ml 350 ml Balance 3408 ml 992 ml 1883 ml IV Total 3316 ml 829 ml 1783 ml Tube Feeding 242 ml 313 ml 100 ml Packed Cells 250 ml 250 ml Other 200 ml 100 ml Output Urine Total 350 ml 400 ml 350 ml Stool Total 0 ml 0 ml # Bowel Movements 1 . Laboratory Tests Test 03/26/17 03/26/17 03/27/17 03:30 20:40 04:40 White Blood Count 9.7 TH/MM3 5.9 TH/MM3 Red Blood Count 1.85 MIL/MM3 2.19 MIL/MM3 Hemoglobin 7.5 GM/DL 7.3 GM/DL 8.3 GM/DL Hematocrit 21.2 % 18.7 % 23.1 % Mean Corpuscular Volume 114.5 FL 105.6 FL Mean Corpuscular Hemoglobin 40.4 PG 37.9 PG Mean Corpuscular Hemoglobin 35.3 % 35.9 % Concent Red Cell Distribution Width 15.3 % 16.3 % Platelet Count 152 TH/MM3 115 TH/MM3 Mean Platelet Volume 8.9 FL 9.1 FL Neutrophils (%) (Auto) 74.9 % 76.4 % Lymphocytes (%) (Auto) 17.3 % 14.9 % Monocytes (%) (Auto) 6.5 % 6.0 % Eosinophils (%) (Auto) 0.6 % 1.7 % Basophils (%) (Auto) 0.7 % 1.0 % Neutrophils # (Auto) 7.3 TH/MM3 4.5 TH/MM3 Lymphocytes # (Auto) 1.7 TH/MM3 0.9 TH/MM3 Monocytes # (Auto) 0.6 TH/MM3 0.4 TH/MM3 Eosinophils # (Auto) 0.1 TH/MM3 0.1 TH/MM3 Basophils # (Auto) 0.1 TH/MM3 0.1 TH/MM3 CBC Comment AUTO DIFF DIFF FINAL Differential Comment AUTO DIFF CONFIRMED Toxic Granulation 2+ Hematology Comments Laboratory Tests Test 03/25/17 03/25/17 03/26/17 03/26/17 10:00 11:00 03:30 20:40 Ammonia 30 MCMOL/L 10 MCMOL/L Total Creatine Kinase 139 U/L 298 U/L Lactic Acid Level 2.9 mmol/L 3.5 mmol/L 3.6 mmol/L Sodium Level 141 MEQ/L 139 MEQ/L Potassium Level 3.5 MEQ/L 3.2 MEQ/L Chloride Level 109 MEQ/L 106 MEQ/L Carbon Dioxide Level 21.8 MEQ/L 20.9 MEQ/L Anion Gap 10 MEQ/L 12 MEQ/L Blood Urea Nitrogen 24 MG/DL 30 MG/DL Creatinine 1.17 MG/DL 1.22 MG/DL Estimat Glomerular Filtration 64 ML/MIN 61 ML/MIN Rate Random Glucose 134 MG/DL 111 MG/DL Calcium Level 7.4 MG/DL 7.5 MG/DL Protein Corrected Calcium 8.2 MG/DL Phosphorus Level 1.4 MG/DL 2.9 MG/DL Magnesium Level 1.5 MG/DL 2.0 MG/DL Total Bilirubin 1.8 MG/DL Aspartate Amino Transf 101 U/L (AST/SGOT) Alanine Aminotransferase 47 U/L (ALT/SGPT) Alkaline Phosphatase 82 U/L Troponin I 0.09 NG/ML Total Protein 5.7 GM/DL Albumin 1.5 GM/DL Test 03/27/17 04:40 Sodium Level 138 MEQ/L Potassium Level 3.0 MEQ/L Chloride Level 106 MEQ/L Carbon Dioxide Level 22.4 MEQ/L Anion Gap 10 MEQ/L Blood Urea Nitrogen 29 MG/DL Creatinine 1.15 MG/DL Estimat Glomerular Filtration 65 ML/MIN Rate Random Glucose 90 MG/DL Lactic Acid Level 2.7 mmol/L Calcium Level 7.4 MG/DL Protein Corrected Calcium 8.2 MG/DL Phosphorus Level 2.7 MG/DL Magnesium Level 2.0 MG/DL Total Bilirubin 2.3 MG/DL Aspartate Amino Transf 82 U/L (AST/SGOT) Alanine Aminotransferase 37 U/L (ALT/SGPT) Alkaline Phosphatase 70 U/L Total Creatine Kinase 265 U/L Total Protein 5.6 GM/DL Albumin 2.0 GM/DL Microbiology Date/Time Procedure Status Source Growth 03/25/17 11:50 Aerobic Blood Culture - Preliminary Resulted Blood Peripheral NO GROWTH IN 1 DAY 03/25/17 11:50 Anaerobic Blood Culture - Preliminary Resulted Blood Peripheral NO GROWTH IN 1 DAY 03/25/17 11:54 Aerobic Blood Culture - Preliminary Resulted Blood Peripheral NO GROWTH IN 1 DAY 03/25/17 11:54 Anaerobic Blood Culture - Preliminary Resulted Blood Peripheral NO GROWTH IN 1 DAY 03/25/17 13:00 Urine Culture - Preliminary Resulted Urine Catheterized Urine NO GROWTH IN 24 HOURS. 03/25/17 17:00 Gram Stain - Final Resulted Sputum Expectorated Sputum 03/25/17 17:00 Sputum Culture - Preliminary Resulted Gram Negative [facility] Chest X-Ray 03/27/17 0600 Signed Impressions: Service Date/Time: Monday, March 27, 2017 02:33 - CONCLUSION: No significant interval change. Víctor Rosas MD Chest X-Ray 03/26/17 0600 Signed Impressions: Service Date/Time: Sunday, March 26, 2017 05:35 - CONCLUSION: Improving bilateral pulmonary infiltrates Víctor Rosas MD Chest X-Ray 03/25/17 1004 Signed Impressions: Service Date/Time: Saturday, March 25, 2017 10:03 - CONCLUSION: 1. Worsening bibasilar consolidation. 2. Endotracheal tube with tip at the thoracic inlet and should be advanced at least 3-4 cm. 3. Adequate placement of left jugular central line without pneumothorax. Logan Morgan MD Chest X-Ray 03/26/17 0600 Signed Impressions: Service Date/Time: Sunday, March 26, 2017 05:35 - CONCLUSION: Improving bilateral pulmonary infiltrates Víctor Rosas MD Lower Extremity Ultrasound 03/25/17 0000 Signed Impressions: Service Date/Time: Saturday, March 25, 2017 22:17 - CONCLUSION: No evidence of DVT. Víctor Rosas MD CT Angiography 03/21/17 0000 Signed Impressions: Service Date/Time: March 00:33 - CONCLUSION: No evidence of pulmonary embolism is identified. Mild atelectasis left lung base. Fluid or phlegm within the trachea. Milo Muhammad MD Brain MRI 03/20/17 0000 Signed Impressions: Service Date/Time: Monday, March 20, 2017 16:11 - CONCLUSION: Abnormal appearance to the ruthy with some extension into the cortical spinal tracts of the posterior thalamus was bilaterally. 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 Cheo Martínez MD Abdomen X-Ray 03/20/17 0000 Signed Impressions: Service Date/Time: Monday, March 20, 2017 18:12 - CONCLUSION: Tip of the Dobbhoff tube projecting towards the pylorus. Cheo Barrera Jr., MD Abdomen Ultrasound 03/20/17 0000 Signed Impressions: Service Date/Time: Monday, March 20, 2017 11:38 - CONCLUSION: 1. Hepatosplenomegaly without focal lesion. 2. Probable sludge within the lumen of the gallbladder. No intrahepatic duct. Cheo Martínez MD Shoulder X-Ray 03/02/17 1404 Signed Impressions: Service Date/Time: Thursday, March 02, 2017 15:18 - CONCLUSION: No evidence of recent bony injury. Deformity of the lateral left clavicle suggests old healed trauma. Cheo Martínez MD Maxillofacial CT 03/02/17 1342 Signed Impressions: Service Date/Time: Thursday, March 02, 2017 14:52 - CONCLUSION: Negative CT of the facial bones. Cheo Martínez MD Head CT 03/02/17 134 Signed Impressions: Service Date/Time: Thursday, March 02, 2017 14:52 - CONCLUSION: 1. Prominent scalp swelling left frontal and parietal region. No skull fracture seen. 2. Intracranial contents are intact without acute finding. Cheo Martínez MD Chest CT 03/02/17 1342 Signed Impressions: Service Date/Time: Thursday, March 02, 2017 15:04 - CONCLUSION: 1. Abnormal appearance of the lateral left clavicle suggesting a combination of acute and chronic bony injury. Fracture lucencies without bridging callus is seen the region of the coracoid process. 2. The lungs are clear. No evidence of pneumothorax. 3. Moderate size hiatus hernia. Cheo Martínez MD Cervical Spine CT 03/02/17 1342 Signed Impressions: Service Date/Time: Thursday, March 02, 2017 14:52 - CONCLUSION: Negative CT cervical spine. Cheo Martínez MD Abdomen/Pelvis CT 03/02/17 1342 Signed Impressions: Service Date/Time: Thursday, March 02, 2017 15:04 - CONCLUSION: Moderate size hiatus hernia. Scattered small sigmoid diverticula. Otherwise negative exam. Cheo Martínez MD Chest X-Ray 03/25/17 1004 Signed Impressions: Service Date/Time: Saturday, March 25, 2017 10:03 - CONCLUSION: 1. Worsening bibasilar consolidation. 2. Endotracheal tube with tip at the thoracic inlet and should be advanced at least 3-4 cm. 3. Adequate placement of left jugular central line without pneumothorax. Logan Morgan MD Chest X-Ray 03/23/17 0000 Signed Impressions: Service Date/Time: Thursday, March 23, 2017 14:27 - CONCLUSION: 1. Feeding tube in place with what appears to be a loop in the hypopharynx. 2. Bibasilar areas of consolidation or atelectasis. Casper Vargas MD Physical Exam GENERAL: sedated and on paralytics, on the vent, not in distress SKIN: Warm and dry. No generalized rash. Has some edema in his upper extremities. HEENT: Pupils equal round and reactive. Mild scleral icterus. Has scleral edema. No injection or drainage. Orally intubated. Poor dentition NECK: Trachea midline. No JVD or lymphadenopathy. Supple, nontender, no meningeal signs. CARDIOVASCULAR: Regular rate and rhythm without murmurs, gallops, or rubs. Tachycardic. RESPIRATORY: Has scattered rhonchi, decreased BS at bases, worse on R than on L. . GASTROINTESTINAL: Abdomen mildly distended, bowel sounds are present and normoactive, no reaction to palpation MUSCULOSKELETAL: Lower extremities without clubbing, cyanosis, or edema. No joint effusion. NEUROLOGICAL: Sedated and on paralytics PSYCH: Unable to assess : Hodgson cath in place with a lot of sediment LINE: central line site ok Assessment & Plan Remarks IMPRESSION Sepsis syndrome, due to PNA - now on vent Septic shock Known ETOH abuse Encephalopathy - sepsis, ETOH, ODS Respiratory failure RECOMMENDATION Follow C/S Continue Merem Continue Zyvox - follow CBC Continue Flagyl and Lactinex Follow temps Monitor progress Change hodgson catheter Umm Lisa MD Mar 27, 2017 09:47
[2017-03-27] MEDS: PANTOPRAZOLE SODIUM 40 MG VIAL IV SCH (10:05)
[2017-03-27] MEDS: fentaNYL DRIP 250 ML IV SCH ×2 (10:05→15:26)
[2017-03-27] MEDS: SODIUM CHLORIDE 0.9% FLUSH 10 ML FLUSH IV FLUSH SCH ×2 (10:05→21:36)
--- NOTE | 2017-03-27 10:50 | HHI.CCPN ---
Subjective Remarks/Hospital Course This is a 61-year-old male with a past history of alcohol abuse and a prior admission in 2015 for severe life-threatening hyponatremia at that time with a serum sodium of 98. He presents today with what he states is a 13 day history of worsening fatigue and weakness. He is very altered and is very difficult to understand the patient. What I can understand from him, is that at some point during these 13 days he has fallen and hit his face. Otherwise he states he lays on the couch, and has not gotten not much. He states he drinks 1 beer in the morning, and 1 beer in the afternoon. He does endorse taking some Xanax to help him sleep. He denies other drug use. He denies chest pain, shortness of breath, fever, chills, nausea, vomiting, abdominal pain. It is very difficult to get him to answer anymore questions about his medical history. His speech is very slurred and he is trying to talk about how he misses his daughter. Emergency department he was found to have a serum sodium of 99, a bilirubin of 8.9, lactate of 9.8, ammonia of 60, CK of 7000, elevated troponin of 4.9 with a normal MB ratio, creatinine 1.5, serum bicarbonate of 13. His white count is 12 , platelets 112. INR 1.9. His MELD calculates at 26. 4/2: Sodium level rapidly corrected overnight, likely secondary to appropriate correction of severe life-threatening dehydration. NS fluids changed to 1/2NS and correction slowed down significantly. sodium up to 130 this AM. CK downtrending. however, patient remains severely hypotensive requiring Levophed to maintain a map > 65 mmHg. This AM, serum K 1.6 (confirmed). started replacement with 200meq KCl and recheck K. 03/04: persists in vasoplegic distributive shock. afebrile. no evidence of infection. wbc downtrending. persists with severe life-threatening electrolyte derangements. passed swallow eval for nectar thick liquids. sodium stable at 131. ck downtrending. 03/05: persists in distributive shock. echo yesterday with EF 30%, globally decreased function. milrinone added yesterday with improvement in vasopressor requirement. still with multiple electrolyte abnormalities despite very aggressive replacement. very poor appetite. sodium stable at 131, which appears to be around baseline for him, looking back at prior records. also became agitated and delirious yesterday, likely secondary to etoh withdraw. started on Ativan and Librium. 03/06: electrolyte derangements persist. placed on continuous NaPhos infusion x 24h due to severe life-threatening hypophosphatemia. serial K, phos checks. weaning off levophed, milrinone persists. still poor appetite. sodium jumped from 132 to 139, but no significant mental status change, and we did not increase sodium load. 03/07: still requiring high electrolyte replacement. milrinone weaned to 0.375 mcg /kg/min overnight. still doing well with that. delirium persists. 03/08 Remains on milrinone. Electrolyte improving. Remains very lethargic, intermittently follows commands 03/09: Continues to be lethargic but wakes up follows some commands. Remains on milrinone will DC today. T max 100.1, urine output adequate sodium is 143 03/10: More awake alert, ate 50% of break fast. Will DC Dobhoff. Discontinue arterial and central lines. Delirium also improved, remains weak 03/11: doing much better this morning. no complaints. still with poor appetite. electrolytes improved. 03/20: We consulted for respiratory failure. Patient was last seen in room 1415 CMP receiving oral cares and became acutely hypoxic saturations 82% with coarse breath sounds. Halicat called. Patient was placed on a Venturi mask 50 % with desaturations to the mid 90s. He received Solu-Medrol 20 mg IV 1, Lasix 40 mg IV 1 and was transferred IM [facility] 521. Hemodynamically stable. Poor mentation 03/25: Reconsulted due to respiratory failure. Patient with gurgling/ transmitted upper airway sounds. Respiration the 50s. Decision made to orotracheally intubate. Noted to have been febrile with increased O2 course over the past 48 hours. 03/26: Afebrile. Requiring Nimbex drip for ventilator synchrony. Decreased urine output noted. Hemoglobin decreased likely dilutional. Tolerating tube feeding. Electrolytes been replaced. Subjective: 03/27: Tmax 100.9. Currently 97.2. +6 L past 24 hours. Hemoglobin 8 transfuse overnight. Potassium 3. We'll discontinue Nimbex drip for vent synchrony today. Objective Vital Signs Date Time Temp Pulse Resp B/P Pulse Ox O2 Delivery O2 Flow Rate FiO2 03/27/17 09:44 92 35 03/27/17 06:00 79 03/27/17 04:00 98.3 18 100/71 03/27/17 04:00 Mechanical Ventilator 15.00 Intake and Output 03/26/17 03/26/17 03/27/17 08:00 16:00 00:00 Intake Total 1733 ml 3758 ml 1392 ml Output Total 175 ml 350 ml 400 ml Balance 1558 ml 3408 ml 992 ml Result Diagram: 03/27/17 0440 03/27/17 0440 Other Results Microbiology Date/Time Procedure Status Source Growth 03/25/17 17:00 Gram Stain - Final Resulted Sputum Expectorated Sputum 03/25/17 17:00 Sputum Culture - Preliminary Resulted Gram Negative Sharad 03/25/17 13:00 Urine Culture - Final Complete Urine Catheterized Urine NO GROWTH IN 48 HOURS. 03/25/17 11:54 Aerobic Blood Culture - Preliminary Resulted Blood Peripheral NO GROWTH IN 2 DAYS 03/25/17 11:54 Anaerobic Blood Culture - Preliminary Resulted Blood Peripheral NO GROWTH IN 2 DAYS 03/22/17 20:29 Aerobic Blood Culture - Final Complete Blood Peripheral NO GROWTH IN 5 DAYS 03/22/17 20:29 Anaerobic Blood Culture - Final Complete Blood Peripheral NO GROWTH IN 5 DAYS Imaging Last Impressions Chest X-Ray 03/27/17 0600 Signed Impressions: Service Date/Time: Monday, March 27, 2017 02:33 - CONCLUSION: No significant interval change. Víctor Rosas MD Lower Extremity Ultrasound 03/25/17 0000 Signed Impressions: Service Date/Time: Saturday, March 25, 2017 22:17 - CONCLUSION: No evidence of DVT. Víctor Rosas MD CT Angiography 03/21/17 0000 Signed Impressions: Service Date/Time: March 00:33 - CONCLUSION: No evidence of pulmonary embolism is identified. Mild atelectasis left lung base. Fluid or phlegm within the trachea. Milo Muhammad MD Brain MRI 03/20/17 0000 Signed Impressions: Service Date/Time: Monday, March 20, 2017 16:11 - CONCLUSION: Abnormal appearance to the ruthy with some extension into the cortical spinal tracts of the posterior thalamus was bilaterally. 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 Cheo Martínez MD Abdomen X-Ray 03/20/17 0000 Signed Impressions: Service Date/Time: Monday, March 20, 2017 18:12 - CONCLUSION: Tip of the Dobbhoff tube projecting towards the pylorus. Cheo Barrera Jr., MD Abdomen Ultrasound 03/20/17 0000 Signed Impressions: Service Date/Time: Monday, March 20, 2017 11:38 - CONCLUSION: 1. Hepatosplenomegaly without focal lesion. 2. Probable sludge within the lumen of the gallbladder. No intrahepatic duct. Cheo Martínez MD Shoulder X-Ray 03/02/17 1404 Signed Impressions: Service Date/Time: Thursday, March 02, 2017 15:18 - CONCLUSION: No evidence of recent bony injury. Deformity of the lateral left clavicle suggests old healed trauma. Cheo Martínez MD Maxillofacial CT 03/02/17 1342 Signed Impressions: Service Date/Time: Thursday, March 02, 2017 14:52 - CONCLUSION: Negative CT of the facial bones. Cheo Martínez MD Head CT 03/02/17 1342 Signed Impressions: Service Date/Time: Thursday, March 02, 2017 14:52 - CONCLUSION: 1. Prominent scalp swelling left frontal and parietal region. No skull fracture seen. 2. Intracranial contents are intact without acute finding. Cheo Martínez MD Chest CT 03/02/17 1342 Signed Impressions: Service Date/Time: Thursday, March 02, 2017 15:04 - CONCLUSION: 1. Abnormal appearance of the lateral left clavicle suggesting a combination of acute and chronic bony injury. Fracture lucencies without bridging callus is seen the region of the coracoid process. 2. The lungs are clear. No evidence of pneumothorax. 3. Moderate size hiatus hernia. Cheo Martínez MD Cervical Spine CT 03/02/17 1342 Signed Impressions: Service Date/Time: Thursday, March 02, 2017 14:52 - CONCLUSION: Negative CT cervical spine. Cheo Martínze MD Abdomen/Pelvis CT 03/02/17 1342 Signed Impressions: Service Date/Time: Thursday, March 02, 2017 15:04 - CONCLUSION: Moderate size hiatus hernia. Scattered small sigmoid diverticula. Otherwise negative exam. Cheo Martínez MD Objective Remarks GENERAL: 61-year-old male, critically ill currently resting in bed orotracheally intubated HEENT: Healing abrasion left side scalp. TIMOTHY. Scleral icterus. Oropharynx with old dried secretions NECK: No JVD/thyromegaly/lymph adenopathy. Trachea Midline CHEST: Coarse crackles appreciated throughout all lung beckett. Few wheezes. CARDIOVASCULAR: Tachycardia, RR. S1, S2. No S4. Without murmur ABDOMEN: Slightly distended/protuberant. Soft. Vague diffuse tenderness. Voluntary guarding. No rigidity. Hypoactive bowel sounds. MUSCULOSKELETAL: Posterior tibialis 2+ palpable. NEUROLOGICAL: Status post paralysis. Prior was opening eyes and moaning. Not following commands. Voluntary withdrawal to pain. Date of Insertion: Mar 25, 2017 Line: Central Venous Catheter Side: Left Location: Internal A/P Assessment and Plan Neuro/Psych: Osmotic demyelination syndrome Acute toxic metabolic encephalopathy secondary to hypercarbic respiratory failure Alcohol dependence History of EtOH induced seizure withdrawal Chronic benzodiazepine use Currently on Versed 7 mg/h/fentanyl 150 mg an hour drips for sedation/analgesia while intubated Nimbex drip at 4 Goal of RA SS -5 MRI 03/21 - T1/T2 prolonged with sparing of this central appears final fibers. 2 small spots in the posterior central spinal tract consistent with Osmotic demyelination syndrome. ODS most likely from rapid correction of Na, with underlying alcoholism CT head 03/05 revealed no acute intracranial findings Continue thiamine/folate and multivitamin. Seen by neurology/Dr. Mazariegos. No further recommendations at this time. Respiratory: Acute hypoxemic hypercapnic respiratory failure [facility] 16/550/1.3/15/100 Ventilator bundle Bronchodilator therapy every 4 hours and as needed Added hypertonic saline for secretions Chest x-ray reveals right lower lobe infiltrate versus effusion Patient likely aspirated. We'll monitor closely for further aspiration Continue feeding via Dobbhoff tube Cardiovascular: Sinus tachycardia Chronic Systolic heart failure Lactic acidosis Echocardiogram 03/04 revealed EF 35-40%. Mild mR. Left atrium dilated. JANE 33 mmHg TSH within normal limits 0.8 On Lopressor 2.5 IV every 6 Kiran-Synephrine at 20 mcg/m. Titrate off the table Lactate 2.7. Recheck in a.m. Renal: Acute Kidney Injury- Rhabdomyolysis- resolved ODS-see neuro Accurate I's and O's Monitor urine output closely. Adequate past 24 hours Follow BMP in a.m. Currently on free water 200 every 6 Discontinue IV fluids today GI: Likely EtOH cirrhosis Hyperammonemia Hiatal hernia Sigmoid diverticulosis History of umbilical hernia repair Placed on Xifaxan 550 twice a day/lactulose 30 twice a day. Recheck ammonia 10 LFT is elevated. Ultrasound liver-hepatosplenomegaly. Sludge in gallbladder Patient on Prilosec 20 mg by mouth daily at home. Currently in IV Protonix Continue tube feeds with Jevity 1.5 goal 60 cc an hour Heme: Macrocytic anemia Leukocytosis Thrombocytopenia Possibly leukemoid/stress versus aspiration Hemoglobin currently 8.3. Post units PRBCs overnight Monitor CBC daily. Follow trends B12 1452, Folate 15.2. TSH 0.8. ID: Likely aspiration pneumonia Escherichia coli UTI 03/11 - completed therapy Pertinent cultures 03/25 - sputum -REM-negative sharad 03/25 - urine - pending 03/25 - blood cultures 2 -no growth 03/22 - urine - no growth 03/22 - blood cultures 2 - negative 03/20 - blood cultures 2 - no growth 03/11 - urine - Escherichia coli 03/02 - blood cultures 2 - no growth Followed by Dr. Lisa/ID. Current cefepime/Flagyl. On 03/25 switched to Zyvox day #3, Merrem day #3 and Flagyl day number8. Vancomycin discontinued yesterday. Endocrine: Hyperglycemia of critical illness History of hypothyroidism SSI with Accu-Cheks every 4 hours to maintain euglycemia FEN: Hypokalemia Replace electrolytes as clinically indicated 40mEq KCl IV 1. Recheck at 1800 MSK: History of old left clavicle fracture PT/OT evaluate and treat Access Left IJ TLC day 3 placed 03/25 Prophylaxis: GI - Protonix DVT - SCD/heparin subcutaneous Critical Care: The total critical care time was 35 minutes. Time to perform other separately billable procedures was not included in the critical care time. Tamanna Sandhu, daughter/ HCP: from [facility] [phone] or possibly transferred to [facility] facility ([phone]) later this week Larry Ruby MD Mar 27, 2017 10:50
[2017-03-27] MEDS ORDERED: POTASSIUM PHOSPHATE MONOBASIC 500 MG TAB PO/TUBE PRN (12:30)
[2017-03-27] MEDS ORDERED: BUMETANIDE INJ 1 MG/4 ML VIAL IV PUSH ONE (12:30)
[2017-03-27] MEDS ORDERED: MAGNESIUM OXIDE 400 MG TAB PO PRN (12:30)
[2017-03-27] MEDS ORDERED: MAGNESIUM SULFATE INJ 2 GM in SODIUM CHLORIDE 0.9% INJ 96 ML IV PRN (12:30)
[2017-03-27] MEDS ORDERED: MAGNESIUM SULFATE INJ 4 GM in SODIUM CHLORIDE 0.9% INJ 92 ML IV PRN (12:30)
[2017-03-27] MEDS ORDERED: POTASSIUM CHLOR 40 MEQ PREMIX 100 ML IV ONE (13:00)
[2017-03-27] MEDS: PHENYLEPHRINE INJ 40 MG in DEXTROSE 5% IN WATE 500 ML INJ 496 ML IV SCH ×2 (16:06)
[2017-03-27] MEDS: ACETAMINOPHEN 325 MG TAB PO PRN (22:19)
[2017-03-28] VITALS (18 sets, daily range): BP systolic 91–105; BP diastolic 61–74; PULSE 74–100; RESP 17–19; TEMP 97.9–99.6; O2SAT 92–100
[2017-03-28] MEDS: MEROPENEM INJ 1,000 MG in SODIUM CHLORIDE 0.9% INJ 100 ML IV SCH ×3 (01:18→18:18)
[2017-03-28] MEDS: RESP: SODIUM CHLORIDE 3% 4 ML NEB NEB SCH ×6 (03:23→23:17)
[2017-03-28] MEDS: RESP: ALBUTEROL 2.5 MG/IPRATROPIUM 0.5 MG NEB (SCH) NEB ×6 (03:23→23:17)
[2017-03-28] MEDS: INSULIN NovoLIN REGULAR SUPPLEMENTAL SCALE SQ SCH ×6 (04:00→20:00)
[2017-03-28] MEDS: LINEZOLID 600 MG PREMIX 300 ML IV SCH (04:07)
--- NOTE | 2017-03-28 04:15 | RADRPT ---
EXAM DATE/TIME: 03/28/2017 02:53 [place] COMPARISON: CHEST SINGLE AP, March 27, 2017, 2:33. INDICATIONS : Shortness of breath MEDICAL HISTORY : None. SURGICAL HISTORY : None. ENCOUNTER: Subsequent ACUITY: 3 weeks PAIN SCORE: Non-responsive. LOCATION: Bilateral chest FINDINGS: The support devices remain in place. There is no pneumothorax. There continue be bilateral pulmonary infiltrates especially involving the mid to lower lung beckett bilaterally. These findings are stable compared to the prior study. The heart size is stable. The bony structures are stable. CONCLUSION: No significant able change with bilateral pulmonary infiltrates compared to the prior exam. Víctor Rosas MD on March 28, 2017 at 4:13 Board Certified Radiologist. This report was verified electronically.
[2017-03-28 04:49] LABS: ALT (GPT) 32 U/L (12-78); ANION GAP 11 MEQ/L (5-15); AST (GOT) 92 U/L (15-37); BICARBONATE 21.9 MEQ/L (21.0-32.0); BLOOD UREA NITROGEN 24 MG/DL (7-18); CHLORIDE 105 MEQ/L (98-107); GLOMERULAR FILTRATION RATE 66 ML/MIN (>89); MAGNESIUM 1.7 MG/DL (1.5-2.5); SODIUM (NA) 138 MEQ/L (136-145)
[2017-03-28 04:51] LABS: ALKALINE PHOSPHATASE 79 U/L (45-117); TOTAL BILIRUBIN ADULT 3.2 MG/DL (0.2-1.0)
[2017-03-28 04:58] LABS: AUTOMATED NEUTROPHIL # 7.4 TH/MM3 (1.8-7.7); BASOPHIL # 0.1 TH/MM3 (0-0.2); BASOPHIL % 1.2 % (0.0-2.0); EOSINOPHIL # 0.1 TH/MM3 (0-0.4); EOSINOPHIL % 1.1 % (0.0-4.0); HEMATOCRIT 27.2 % (39.0-51.0); HEMO FLAGS DIFF FINAL; LYMPH % 12.9 % (9.0-44.0); LYMPHOCYTE # 1.2 TH/MM3 (1.0-4.8); MEAN CELL VOLUME 99.7 FL (80.0-100.0); MEAN CORPUSCULAR HEMOGLOBIN 35.2 PG (27.0-34.0); MEAN CORPUSCULAR HGB CONC 35.3 % (32.0-36.0); MONO % 5.8 % (0.0-8.0); PLATELET COUNT 153 TH/MM3 (150-450); RED BLOOD COUNT 2.73 MIL/MM3 (4.50-5.90); RED CELL DISTRIBUTION WIDTH 16.1 % (11.6-17.2); WHITE BLOOD COUNT 9.3 TH/MM3 (4.0-11.0)
[2017-03-28] MEDS: METOPROLOL TARTRATE 5 MG/5 ML VIAL IV PUSH SCH ×4 (05:00→22:22)
[2017-03-28] MEDS: POTASSIUM CHLOR 40 MEQ PREMIX 100 ML IV PRN (05:32)
[2017-03-28] MEDS: metroNIDAZOLE 500 MG TAB PO SCH ×3 (05:32→20:18)
[2017-03-28] MEDS: HEPARIN SODIUM - SQ 10,000 UNITS/ML VIAL SQ SCH ×3 (05:32→20:16)
[2017-03-28] MEDS: MIDAZOLAM 100 MG/ML INJ 100 ML IV SCH (05:39)
[2017-03-28] MEDS: FREE WATER NG SCH ×4 (05:47→18:00)
[2017-03-28] MEDS: PHENYLEPHRINE INJ 40 MG in DEXTROSE 5% IN WATE 500 ML INJ 496 ML IV SCH ×4 (05:57→11:47)
[2017-03-28] MEDS: CHLORHEXIDINE 0.12% (ORAL KIT) 15 ML CUP MT SCH ×2 (08:00→20:00)
[2017-03-28] MEDS: SODIUM CHLORIDE 0.9% FLUSH 10 ML FLUSH IV FLUSH SCH ×2 (09:00→20:17)
[2017-03-28] MEDS: ARTIFICIAL TEARS OPTH SOLN 15 ML BTL EACH EYE SCH ×3 (09:00→18:00)
[2017-03-28] MEDS: MUPIROCIN 2% OINT 1 APPLIC/GM SYR EACH NARE SCH ×2 (09:00→20:17)
[2017-03-28] MEDS: SODIUM CHLORIDE 0.9% FLUSH 10 ML FLUSH IVF SCH (09:00)
[2017-03-28] MEDS: THIAMINE INJ 100 MG in SODIUM CHLORIDE 0.9% INJ 100 ML IV SCH (09:37)
[2017-03-28] MEDS: DOCUSATE SODIUM 100 MG CAP PO SCH ×2 (09:38→20:16)
[2017-03-28] MEDS: LACTULOSE SYRUP 20 GM/30 ML CUP PO SCH ×2 (09:38→20:17)
[2017-03-28] MEDS: LACTOBACILLUS ACIDOPHILUS TAB PO SCH ×3 (09:38→18:18)
[2017-03-28] MEDS: PANTOPRAZOLE SODIUM 40 MG VIAL IV SCH (09:38)
[2017-03-28] MEDS: RIFAXIMIN 550 MG TAB PO SCH ×2 (09:38→20:16)
--- NOTE | 2017-03-28 10:29 | HHI.CCPN ---
Subjective Remarks/Hospital Course This is a 61-year-old male with a past history of alcohol abuse and a prior admission in 2015 for severe life-threatening hyponatremia at that time with a serum sodium of 98. He presents today with what he states is a 13 day history of worsening fatigue and weakness. He is very altered and is very difficult to understand the patient. What I can understand from him, is that at some point during these 13 days he has fallen and hit his face. Otherwise he states he lays on the couch, and has not gotten not much. He states he drinks 1 beer in the morning, and 1 beer in the afternoon. He does endorse taking some Xanax to help him sleep. He denies other drug use. He denies chest pain, shortness of breath, fever, chills, nausea, vomiting, abdominal pain. It is very difficult to get him to answer anymore questions about his medical history. His speech is very slurred and he is trying to talk about how he misses his daughter. Emergency department he was found to have a serum sodium of 99, a bilirubin of 8.9, lactate of 9.8, ammonia of 60, CK of 7000, elevated troponin of 4.9 with a normal MB ratio, creatinine 1.5, serum bicarbonate of 13. His white count is 12 , platelets 112. INR 1.9. His MELD calculates at 26. 4/2: Sodium level rapidly corrected overnight, likely secondary to appropriate correction of severe life-threatening dehydration. NS fluids changed to 1/2NS and correction slowed down significantly. sodium up to 130 this AM. CK downtrending. however, patient remains severely hypotensive requiring Levophed to maintain a map > 65 mmHg. This AM, serum K 1.6 (confirmed). started replacement with 200meq KCl and recheck K. 03/04: persists in vasoplegic distributive shock. afebrile. no evidence of infection. wbc downtrending. persists with severe life-threatening electrolyte derangements. passed swallow eval for nectar thick liquids. sodium stable at 131. ck downtrending. 03/05: persists in distributive shock. echo yesterday with EF 30%, globally decreased function. milrinone added yesterday with improvement in vasopressor requirement. still with multiple electrolyte abnormalities despite very aggressive replacement. very poor appetite. sodium stable at 131, which appears to be around baseline for him, looking back at prior records. also became agitated and delirious yesterday, likely secondary to etoh withdraw. started on Ativan and Librium. 03/06: electrolyte derangements persist. placed on continuous NaPhos infusion x 24h due to severe life-threatening hypophosphatemia. serial K, phos checks. weaning off levophed, milrinone persists. still poor appetite. sodium jumped from 132 to 139, but no significant mental status change, and we did not increase sodium load. 03/07: still requiring high electrolyte replacement. milrinone weaned to 0.375 mcg /kg/min overnight. still doing well with that. delirium persists. 03/08 Remains on milrinone. Electrolyte improving. Remains very lethargic, intermittently follows commands 03/09: Continues to be lethargic but wakes up follows some commands. Remains on milrinone will DC today. T max 100.1, urine output adequate sodium is 143 03/10: More awake alert, ate 50% of break fast. Will DC Dobhoff. Discontinue arterial and central lines. Delirium also improved, remains weak 03/11: doing much better this morning. no complaints. still with poor appetite. electrolytes improved. 03/20: We consulted for respiratory failure. Patient was last seen in room 1415 CMP receiving oral cares and became acutely hypoxic saturations 82% with coarse breath sounds. Halicat called. Patient was placed on a Venturi mask 50 % with desaturations to the mid 90s. He received Solu-Medrol 20 mg IV 1, Lasix 40 mg IV 1 and was transferred IM [facility] 521. Hemodynamically stable. Poor mentation 03/25: Reconsulted due to respiratory failure. Patient with gurgling/ transmitted upper airway sounds. Respiration the 50s. Decision made to orotracheally intubate. Noted to have been febrile with increased O2 course over the past 48 hours. 03/26: Afebrile. Requiring Nimbex drip for ventilator synchrony. Decreased urine output noted. Hemoglobin decreased likely dilutional. Tolerating tube feeding. Electrolytes been replaced. 03/27: Tmax 100.9. Currently 97.2. +6 L past 24 hours. Hemoglobin 8 transfuse overnight. Potassium 3. We'll discontinue Nimbex drip for vent synchrony today. Subjective: 03/28: Afebrile. Negative fluid balance past 24 hours. Hemoglobin currently 9. Potassium 3.0. Currently on sedation vacation positive gag and otherwise unresponsive. Objective Vital Signs Date Time Temp Pulse Resp B/P Pulse Ox O2 Delivery O2 Flow Rate FiO2 03/28/17 10:00 80 03/28/17 08:42 96 35 03/28/17 08:00 Mechanical Ventilator 03/28/17 04:00 97.9 18 105/74 03/27/17 04:00 15.00 Intake and Output 03/27/17 03/27/17 03/28/17 08:00 16:00 00:00 Intake Total 2233 ml 1773 ml 1306 ml Output Total 350 ml 750 ml 1750 ml Balance 1883 ml 1023 ml -444 ml Result Diagram: 03/28/17 0405 03/28/17 0405 Other Results Microbiology Date/Time Procedure Status Source Growth 03/25/17 17:00 Gram Stain - Final Complete Sputum Expectorated Sputum 03/25/17 17:00 Sputum Culture - Final Complete Acinetobacter Baumannii/Haemol 03/25/17 13:00 Urine Culture - Final Complete Urine Catheterized Urine NO GROWTH IN 48 HOURS. 03/25/17 11:54 Aerobic Blood Culture - Preliminary Resulted Blood Peripheral NO GROWTH IN 2 DAYS 03/25/17 11:54 Anaerobic Blood Culture - Preliminary Resulted Blood Peripheral NO GROWTH IN 2 DAYS Imaging Last Impressions Chest X-Ray 03/28/17 0600 Signed Impressions: Service Date/Time: March 02:53 - CONCLUSION: No significant able change with bilateral pulmonary infiltrates compared to the prior exam. Víctor Rosas MD Lower Extremity Ultrasound 03/25/17 0000 Signed Impressions: Service Date/Time: Saturday, March 25, 2017 22:17 - CONCLUSION: No evidence of DVT. Víctor Rosas MD CT Angiography 03/21/17 0000 Signed Impressions: Service Date/Time: March 00:33 - CONCLUSION: No evidence of pulmonary embolism is identified. Mild atelectasis left lung base. Fluid or phlegm within the trachea. Milo Muhammad MD Brain MRI 03/20/17 0000 Signed Impressions: Service Date/Time: Monday, March 20, 2017 16:11 - CONCLUSION: Abnormal appearance to the ruthy with some extension into the cortical spinal tracts of the posterior thalamus was bilaterally. 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 Cheo Martínez MD Abdomen X-Ray 03/20/17 0000 Signed Impressions: Service Date/Time: Monday, March 20, 2017 18:12 - CONCLUSION: Tip of the Dobbhoff tube projecting towards the pylorus. Cheo Barrera Jr., MD Abdomen Ultrasound 03/20/17 0000 Signed Impressions: Service Date/Time: Monday, March 20, 2017 11:38 - CONCLUSION: 1. Hepatosplenomegaly without focal lesion. 2. Probable sludge within the lumen of the gallbladder. No intrahepatic duct. Cheo Martínez MD Shoulder X-Ray 03/02/17 1404 Signed Impressions: Service Date/Time: Thursday, March 02, 2017 15:18 - CONCLUSION: No evidence of recent bony injury. Deformity of the lateral left clavicle suggests old healed trauma. Cheo Martínez MD Maxillofacial CT 03/02/17 1342 Signed Impressions: Service Date/Time: Thursday, March 02, 2017 14:52 - CONCLUSION: Negative CT of the facial bones. Cheo Martínez MD Head CT 03/02/17 1342 Signed Impressions: Service Date/Time: Thursday, March 02, 2017 14:52 - CONCLUSION: 1. Prominent scalp swelling left frontal and parietal region. No skull fracture seen. 2. Intracranial contents are intact without acute finding. Cheo Martínez MD Chest CT 03/02/17 1342 Signed Impressions: Service Date/Time: Thursday, March 02, 2017 15:04 - CONCLUSION: 1. Abnormal appearance of the lateral left clavicle suggesting a combination of acute and chronic bony injury. Fracture lucencies without bridging callus is seen the region of the coracoid process. 2. The lungs are clear. No evidence of pneumothorax. 3. Moderate size hiatus hernia. Cheo Martínez MD Cervical Spine CT 03/02/17 1342 Signed Impressions: Service Date/Time: Thursday, March 02, 2017 14:52 - CONCLUSION: Negative CT cervical spine. Cheo Martínez MD Abdomen/Pelvis CT 03/02/17 1342 Signed Impressions: Service Date/Time: Thursday, March 02, 2017 15:04 - CONCLUSION: Moderate size hiatus hernia. Scattered small sigmoid diverticula. Otherwise negative exam. Cheo Martínez MD Objective Remarks GENERAL: 61-year-old male, critically ill currently resting in bed orotracheally intubated HEENT: Healing abrasion left side scalp. TIMOTHY. Scleral icterus. Oropharynx with old dried secretions NECK: No JVD/thyromegaly/lymph adenopathy. Trachea Midline CHEST: Coarse crackles appreciated throughout all lung beckett. Few wheezes. CARDIOVASCULAR: Tachycardia, RR. S1, S2. No S4. Without murmur ABDOMEN: Slightly distended/protuberant. Soft. Vague diffuse tenderness. Voluntary guarding. No rigidity. Hypoactive bowel sounds. MUSCULOSKELETAL: Posterior tibialis 2+ palpable. NEUROLOGICAL: Currently positive corneal reflex. Positive gag. Doesn't withdrawal to pain. up toes. Prior was opening eyes and moaning. Not following commands. Voluntary withdrawal to pain. Date of Insertion: Mar 25, 2017 Line: Central Venous Catheter Side: Left Location: Internal A/P Assessment and Plan Neuro/Psych: Osmotic demyelination syndrome Acute toxic metabolic encephalopathy secondary to hypercarbic respiratory failure Alcohol dependence History of EtOH induced seizure withdrawal Chronic benzodiazepine use Currently on Versed 7 mg/h/fentanyl 150 mg an hour drips for sedation/analgesia while intubated currently on hold Nimbex drip at 4 discontinue 03/27 Goal of RA SS -2 MRI 03/21 - T1/T2 prolonged with sparing of this central appears final fibers. 2 small spots in the posterior central spinal tract consistent with Osmotic demyelination syndrome. ODS most likely from rapid correction of Na, with underlying alcoholism CT head 03/05 revealed no acute intracranial findings Continue thiamine/folate and multivitamin. Seen by neurology/Dr. Mazariegos. No further recommendations at this time. If continues to be minimally responsive will recheck MRI/A of brain and EEG Respiratory: Acute hypoxemic hypercapnic respiratory failure PRVC 16/550/1.3/40 Ventilator bundle Bronchodilator therapy every 4 hours and as needed Added hypertonic saline for secretions Chest x-ray reveals right lower lobe infiltrate versus effusion Patient likely aspirated. We'll monitor closely for further aspiration Continue feeding via Dobbhoff tube Cardiovascular: Chronic Systolic heart failure Lactic acidosis Echocardiogram 03/04 revealed EF 35-40%. Mild mR. Left atrium dilated. JANE 33 mmHg TSH within normal limits 0.8 On Lopressor 2.5 IV every 6 Kiran-Synephrine at 30 mcg/m. Titrate off as clinically indicated Lactate 2.3. Recheck in a.m. Renal: Acute Kidney Injury- Rhabdomyolysis- resolved ODS-see neuro Accurate I's and O's Monitor urine output closely. Adequate past 24 hours Follow BMP in a.m. Currently on free water 200 every 6 Discontinue IV fluids 03/27 GI: Likely EtOH cirrhosis Hyperammonemia Hiatal hernia Sigmoid diverticulosis History of umbilical hernia repair Placed on Xifaxan 550 twice a day/lactulose 30 twice a day. Recheck ammonia currently 23 LFT is elevated. Ultrasound liver-hepatosplenomegaly. Sludge in gallbladder Patient on Prilosec 20 mg by mouth daily at home. Currently in IV Protonix Continue tube feeds with Jevity 1.5 goal 60 cc an hour. Currently 10 cc an hour Start Reglan 5 every 6 8 hours/prokinetic age. Check KUB with tube feeding intolerance Heme: Macrocytic anemia Possibly leukemoid/stress versus aspiration Hemoglobin currently 8.3. Post units 2 PRBCs overnight 03/27 Monitor CBC daily. Follow trends B12 1452, Folate 15.2. TSH 0.8. ID: Likely aspiration pneumonia Escherichia coli UTI 03/11 - completed therapy Stenotrophomonas Pertinent cultures 03/25 - sputum --stenotrophomonas 03/25 - urine - pending 03/25 - blood cultures 2 -no growth 03/22 - urine - no growth 03/22 - blood cultures 2 - negative 03/20 - blood cultures 2 - no growth 03/11 - urine - Escherichia coli 03/02 - blood cultures 2 - no growth Followed by Dr. Lisa/ID. previously on cefepime/Flagyl. On 03/25 switched to Zyvox day #4, Merrem day #4 (likely discontinued today ) and Flagyl day number9. I ordered Unasyn 1 dose 1 now. Vancomycin discontinued yesterday. Endocrine: Hyperglycemia of critical illness History of hypothyroidism SSI with Accu-Cheks every 4 hours to maintain euglycemia FEN: Hypokalemia Hypophosphatemia Replace electrolytes as clinically indicated 40mEq KCl IV 2. Recheck at 1800 Neutra-Phos 500 mg by PEG every 8 hours 3 dosages 2 g mag sulfate IV 1 MSK: History of old left clavicle fracture PT/OT evaluate and treat Access Left IJ TLC day 4 placed 03/25 Prophylaxis: GI - Protonix DVT - SCD/heparin subcutaneous Critical Care: The total critical care time was 35 minutes. Time to perform other separately billable procedures was not included in the critical care time. Tamanna Sandhu, daughter/ HCP: from [facility] [phone] or possibly transferred to [facility] ([phone]) later this week Larry Ruby MD Mar 28, 2017 10:29 Larry Ruby MD Mar 28, 2017 10:29
[2017-03-28] MEDS: POTASSIUM CHLOR 40 MEQ PREMIX 100 ML IV SCH ×2 (11:47→15:13)
[2017-03-28] MEDS: AMPICILLIN-SULBACTAM INJ 3 GM in SODIUM CHLORIDE 0.9% INJ 100 ML IV SCH ×3 (11:47→22:22)
[2017-03-28] MEDS: MAGNESIUM SULFATE 1 GM PREMIX 100 ML IV SCH ×2 (11:47→13:01)
--- NOTE | 2017-03-28 11:51 | RADRPT ---
EXAM DATE/TIME: 03/28/2017 10:37 [place] COMPARISON: ABDOMEN SINGLE VIEW, March 20, 2017, 18:12. INDICATIONS : Evaluate for ileus. MEDICAL HISTORY : Methicillin-resistant Staphylococcus aureus. Respiratory failure. Liver disease. ETOH abuse. SURGICAL HISTORY : Brain surgery. ENCOUNTER: Subsequent ACUITY: 3 days PAIN SCORE: Non-responsive. LOCATION: Abdomen, all quadrants. FINDINGS: The bowel gas is nonspecific. There are no signs of obstruction or free air for technique. No defini te calcified stones are identified for technique. Dobbhoff tube is present with tip in the region of the antrum could potentially be in the first portion of the duodenum. IMPRESSION: Nonspecific abdomen. Bety Castillo MD on March 28, 2017 at 11:47 Board Certified Radiologist. This report was verified electronically.
--- NOTE | 2017-03-28 12:15 | HHI.HCPN ---
Reason for visit a. To assist with evaluation and management of symptoms including: dyspnea, pain. b. To assist medical decision maker(s) with: better understanding of current medical conditions; weighing benefits/burdens of medical treatment options; making medical treatment decisions. . Subjective/Interval History Today Mr Sandhu in obtunded on a vent.PRVC Peep FiO2 - 5/35 Currently, Diprivan , Fentanyl and Nimbex are off. He remains on Kiran - systolic pressures are high 90's low 100s. He remains on ABX for + sputum Acinetobacter Baumanni. Tmax 102 in the last 24 hrs. CXR 03/27/17 - persistent bilateral infiltrates mid to base Bowel sounds are sluggish and he is losing feeding from his mouth. Abd KUB - unremarkable 03/27/17 No further contact from Margot at this time - pt is a no code. . Advance Directives Living Will: Never completed Health Care Surrogate: Never completed Durable Power of Film Printer: Never completed Advance Directive Specifics Health Care Surrogate(s): Margot Tamanna is, per [place] statues bam care decision proxy. She is currently incarcerated at the [facility]. They are permitting her to participate in decisions at this time. At some future point she will be moved to the [facility]. Objective Vital Signs Date Time Temp Pulse Resp B/P Pulse Ox O2 Delivery O2 Flow Rate FiO2 03/28/17 11:28 96 35 03/28/17 10:00 80 03/28/17 08:42 96 35 03/28/17 08:00 100 Mechanical Ventilator 35 03/28/17 08:00 35 03/28/17 08:00 74 03/28/17 06:00 83 03/28/17 04:22 98 35 03/28/17 04:00 80 03/28/17 04:00 100 Mechanical Ventilator 35 03/28/17 04:00 97.9 80 18 105/74 100 03/28/17 04:00 35 03/28/17 02:00 79 03/28/17 00:00 99.6 88 18 94/61 95 03/28/17 00:00 88 03/28/17 00:00 35 03/28/17 00:00 97 Mechanical Ventilator 35 03/27/17 23:47 97 35 03/27/17 22:00 93 03/27/17 20:00 35 03/27/17 20:00 100 03/27/17 20:00 97 Mechanical Ventilator 35 03/27/17 20:00 102.7 100 18 107/73 97 03/27/17 19:36 96 35 03/27/17 18:00 93 03/27/17 16:00 99.2 96 18 102/68 96 03/27/17 16:00 Mechanical Ventilator 50 03/27/17 16:00 93 03/27/17 16:00 40 03/27/17 15:19 99 35 03/27/17 14:00 93 03/27/17 12:00 93 03/27/17 12:00 Mechanical Ventilator 50 03/27/17 12:00 100.2 91 18 95/66 96 03/27/17 12:00 40 Intake & Output 03/28/17 03/28/17 07:00 19:00 Intake Total 1779 ml Output Total 2275 ml Balance -496 ml IV Total 1716 ml Tube Feeding 23 ml Other 40 ml Output Urine Total 2275 ml # Bowel Movements 2 Physical Exam CONSTITUTIONAL/GENERAL: This is an thin, pale appearing patient, in no apparent distress. TUBES/LINES/DRAINS: ETT, OG, Left IJ central line, Dobbhoff tube, Johns, rectal tube, SCDs. SKIN: Red rash on face. Ecchymosis bilateral UEs. Skin temperature appropriate. Not diaphoretic. ENT: Unable to assess hearing. Nose without bleeding or purulent drainage. Throat difficult to visualize due to tubes. NECK: Trachea midline. CARDIOVASCULAR: Regular rate and rhythm without murmurs, gallops, or rubs. No JVD. Peripheral pulses symmetric. RESPIRATORY/CHEST: Symmetric, unlabored respirations. Coarse rhonchi anteriorly. GASTROINTESTINAL: Abdomen soft, non-tender, nondistended.hepato-splenomegaly, Bowel sounds sluggish GENITOURINARY: Without palpable bladder distension. Johns catheter in place. Erythema groin area. MUSCULOSKELETAL: Generalized edema noted. No mottling or clubbing. NEUROLOGICAL: off sedation - not awake nor following commands PSYCHIATRIC: unable to assess . Diagnostic Tests Laboratory Laboratory Tests Test 03/25/17 03/25/17 03/26/17 03/26/17 13:00 17:00 03:30 08:00 Urine Color KRISTEN (YELLW/STRAW) Urine Turbidity CLOUDY (CLEAR) Urine pH 6.0 (5.0-8.5) Urine Specific Whick 1.023 (1.002-1.035) Urine Protein 100 mg/dL (NEG-TRACE) Urine Glucose (UA) NEG mg/dL (NEG) Urine Ketones TRACE mg/dL (NEG) Urine Occult Blood MOD (NEG) Urine Nitrite NEG (NEG) Urine Bilirubin SMALL (NEG) Urine Urobilinogen LESS THAN 2.0 MG/DL (LESS THAN 2.0) Urine Leukocyte Esterase TRACE (NEG) Urine RBC 80 /hpf (0-3) Urine WBC 7 /hpf (0-5) Urine Squamous Epithelial 1 /hpf (0-5) Cells Urine Amorphous Sediment FEW Urine Bacteria MOD /hpf (NONE) Urine Granular Casts 6 /lpf (NONE) Urine Mucus FEW /lpf (OCC) Microscopic Urinalysis Comment CATH-CULTURE IND Stool C. difficile Toxin (PCR) NEGATIVE (NEGATIVE) Stl C. difficile Toxin PRESUMPTIVE Epiderm 027 NEGATIVE (NEGATIVE) White Blood Count 9.7 TH/MM3 (4.0-11.0) Red Blood Count 1.85 MIL/MM3 (4.50-5.90) Hemoglobin 7.5 GM/DL (13.0-17.0) Hematocrit 21.2 % (39.0-51.0) Mean Corpuscular Volume 114.5 FL (80.0-100.0) Mean Corpuscular Hemoglobin 40.4 PG (27.0-34.0) Mean Corpuscular Hemoglobin 35.3 % Concent (32.0-36.0) Red Cell Distribution Width 15.3 % (11.6-17.2) Platelet Count 152 TH/MM3 (150-450) Mean Platelet Volume 8.9 FL (7.0-11.0) Neutrophils (%) (Auto) 74.9 % (16.0-70.0) Lymphocytes (%) (Auto) 17.3 % (9.0-44.0) Monocytes (%) (Auto) 6.5 % (0.0-8.0) Eosinophils (%) (Auto) 0.6 % (0.0-4.0) Basophils (%) (Auto) 0.7 % (0.0-2.0) Neutrophils # (Auto) 7.3 TH/MM3 (1.8-7.7) Lymphocytes # (Auto) 1.7 TH/MM3 (1.0-4.8) Monocytes # (Auto) 0.6 TH/MM3 (0-0.9) Eosinophils # (Auto) 0.1 TH/MM3 (0-0.4) Basophils # (Auto) 0.1 TH/MM3 (0-0.2) CBC Comment AUTO DIFF Differential Comment AUTO DIFF CONFIRMED Toxic Granulation 2+ (NORMAL) Hematology Comments Sodium Level 141 MEQ/L (136-145) Potassium Level 3.5 MEQ/L (3.5-5.1) Chloride Level 109 MEQ/L (98-107) Carbon Dioxide Level 21.8 MEQ/L (21.0-32.0) Anion Gap 10 MEQ/L (5-15) Blood Urea Nitrogen 24 MG/DL (7-18) Creatinine 1.17 MG/DL (0.60-1.30) Estimat Glomerular Filtration 64 ML/MIN (>89) Rate Random Glucose 134 MG/DL (74-106) Lactic Acid Level 3.5 mmol/L (0.4-2.0) Calcium Level 7.4 MG/DL (8.5-10.1) Protein Corrected Calcium 8.2 MG/DL (8.5-10.1) Phosphorus Level 1.4 MG/DL (2.5-4.9) Magnesium Level 1.5 MG/DL (1.5-2.5) Total Bilirubin 1.8 MG/DL (0.2-1.0) Aspartate Amino Transf 101 U/L (15-37) (AST/SGOT) Alanine Aminotransferase 47 U/L (12-78) (ALT/SGPT) Alkaline Phosphatase 82 U/L (45-117) Ammonia 10 MCMOL/L (11-32) Total Creatine Kinase 298 U/L (39-308) Troponin I 0.09 NG/ML (0.02-0.05) Total Protein 5.7 GM/DL (6.4-8.2) Albumin 1.5 GM/DL (3.4-5.0) Blood Type O POSITIVE Antibody Screen POSITIVE Prewarmed Antibody Screen NEGATIVE Crossmatch Leukocyte-Reduced Red Blood Cells Blood Bank Comment Test 03/26/17 03/26/17 03/26/17 03/27/17 10:23 20:40 22:50 04:40 Blood Type O POSITIVE O POSITIVE Antibody Identification Strong Non-Specific Cold Agglu Hemoglobin 7.3 GM/DL 8.3 GM/DL (13.0-17.0) (13.0-17.0) Hematocrit 18.7 % 23.1 % (39.0-51.0) (39.0-51.0) Sodium Level 139 MEQ/L 138 MEQ/L (136-145) (136-145) Potassium Level 3.2 MEQ/L 3.0 MEQ/L (3.5-5.1) (3.5-5.1) Chloride Level 106 MEQ/L 106 MEQ/L (98-107) (98-107) Carbon Dioxide Level 20.9 MEQ/L 22.4 MEQ/L (21.0-32.0) (21.0-32.0) Anion Gap 12 MEQ/L (5-15) 10 MEQ/L (5-15) Blood Urea Nitrogen 30 MG/DL (7-18) 29 MG/DL (7-18) Creatinine 1.22 MG/DL 1.15 MG/DL (0.60-1.30) (0.60-1.30) Estimat Glomerular Filtration 61 ML/MIN (>89) 65 ML/MIN (>89) Rate Random Glucose 111 MG/DL 90 MG/DL (74-106) (74-106) Lactic Acid Level 3.6 mmol/L 2.7 mmol/L (0.4-2.0) (0.4-2.0) Calcium Level 7.5 MG/DL 7.4 MG/DL (8.5-10.1) (8.5-10.1) Phosphorus Level 2.9 MG/DL 2.7 MG/DL (2.5-4.9) (2.5-4.9) Magnesium Level 2.0 MG/DL 2.0 MG/DL (1.5-2.5) (1.5-2.5) Crossmatch Leukocyte-Reduced Red Blood Cells Blood Bank Comment White Blood Count 5.9 TH/MM3 (4.0-11.0) Red Blood Count 2.19 MIL/MM3 (4.50-5.90) Mean Corpuscular Volume 105.6 FL (80.0-100.0) Mean Corpuscular Hemoglobin 37.9 PG (27.0-34.0) Mean Corpuscular Hemoglobin 35.9 % Concent (32.0-36.0) Red Cell Distribution Width 16.3 % (11.6-17.2) Platelet Count 115 TH/MM3 (150-450) Mean Platelet Volume 9.1 FL (7.0-11.0) Neutrophils (%) (Auto) 76.4 % (16.0-70.0) Lymphocytes (%) (Auto) 14.9 % (9.0-44.0) Monocytes (%) (Auto) 6.0 % (0.0-8.0) Eosinophils (%) (Auto) 1.7 % (0.0-4.0) Basophils (%) (Auto) 1.0 % (0.0-2.0) Neutrophils # (Auto) 4.5 TH/MM3 (1.8-7.7) Lymphocytes # (Auto) 0.9 TH/MM3 (1.0-4.8) Monocytes # (Auto) 0.4 TH/MM3 (0-0.9) Eosinophils # (Auto) 0.1 TH/MM3 (0-0.4) Basophils # (Auto) 0.1 TH/MM3 (0-0.2) CBC Comment DIFF FINAL Differential Comment Hematology Comments Protein Corrected Calcium 8.2 MG/DL (8.5-10.1) Total Bilirubin 2.3 MG/DL (0.2-1.0) Aspartate Amino Transf 82 U/L (15-37) (AST/SGOT) Alanine Aminotransferase 37 U/L (12-78) (ALT/SGPT) Alkaline Phosphatase 70 U/L (45-117) Total Creatine Kinase 265 U/L (39-308) Total Protein 5.6 GM/DL (6.4-8.2) Albumin 2.0 GM/DL (3.4-5.0) Test 03/27/17 03/28/17 03/28/17 22:00 04:04 04:05 Potassium Level 3.3 MEQ/L 3.0 MEQ/L (3.5-5.1) (3.5-5.1) Lactic Acid Level 2.3 mmol/L (0.4-2.0) Ammonia 26 MCMOL/L (11-32) White Blood Count 9.3 TH/MM3 (4.0-11.0) Red Blood Count 2.73 MIL/MM3 (4.50-5.90) Hemoglobin 9.6 GM/DL (13.0-17.0) Hematocrit 27.2 % (39.0-51.0) Mean Corpuscular Volume 99.7 FL (80.0-100.0) Mean Corpuscular Hemoglobin 35.2 PG (27.0-34.0) Mean Corpuscular Hemoglobin 35.3 % Concent (32.0-36.0) Red Cell Distribution Width 16.1 % (11.6-17.2) Platelet Count 153 TH/MM3 (150-450) Mean Platelet Volume 8.6 FL (7.0-11.0) Neutrophils (%) (Auto) 79.0 % (16.0-70.0) Lymphocytes (%) (Auto) 12.9 % (9.0-44.0) Monocytes (%) (Auto) 5.8 % (0.0-8.0) Eosinophils (%) (Auto) 1.1 % (0.0-4.0) Basophils (%) (Auto) 1.2 % (0.0-2.0) Neutrophils # (Auto) 7.4 TH/MM3 (1.8-7.7) Lymphocytes # (Auto) 1.2 TH/MM3 (1.0-4.8) Monocytes # (Auto) 0.5 TH/MM3 (0-0.9) Eosinophils # (Auto) 0.1 TH/MM3 (0-0.4) Basophils # (Auto) 0.1 TH/MM3 (0-0.2) CBC Comment DIFF FINAL Differential Comment Hematology Comments Sodium Level 138 MEQ/L (136-145) Chloride Level 105 MEQ/L (98-107) Carbon Dioxide Level 21.9 MEQ/L (21.0-32.0) Anion Gap 11 MEQ/L (5-15) Blood Urea Nitrogen 24 MG/DL (7-18) Creatinine 1.13 MG/DL (0.60-1.30) Estimat Glomerular Filtration 66 ML/MIN (>89) Rate Random Glucose 90 MG/DL (74-106) Calcium Level 8.1 MG/DL (8.5-10.1) Phosphorus Level 2.0 MG/DL (2.5-4.9) Magnesium Level 1.7 MG/DL (1.5-2.5) Total Bilirubin 3.2 MG/DL (0.2-1.0) Aspartate Amino Transf 92 U/L (15-37) (AST/SGOT) Alanine Aminotransferase 32 U/L (12-78) (ALT/SGPT) Alkaline Phosphatase 79 U/L (45-117) Total Protein 5.5 GM/DL (6.4-8.2) Albumin 1.7 GM/DL (3.4-5.0) Result Diagram: 03/28/17 0405 03/28/17 0405 Microbiology Microbiology Date/Time Procedure Status Source Growth 03/25/17 13:00 Urine Culture - Final Complete Urine Catheterized Urine NO GROWTH IN 48 HOURS. 03/25/17 17:00 Gram Stain - Final Complete Sputum Expectorated Sputum 03/25/17 17:00 Sputum Culture - Final Complete Acinetobacter Baumannii/Haemol 03/25/17 17:00 Received Other Pending Imaging Last 72 hours Impressions Chest X-Ray 03/28/17 0600 Signed Impressions: Service Date/Time: March 02:53 - CONCLUSION: No significant able change with bilateral pulmonary infiltrates compared to the prior exam. Víctor Rosas MD Chest X-Ray 03/27/17 06 Signed Impressions: Service Date/Time: Monday, March 27, 2017 02:33 - CONCLUSION: No significant interval change. 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 Also unable to express discomfort (2) Dyspnea 0-10 Scale: Unable to quantify (remains with an nasal canula. 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 Spiritual: No reported Legal: Margot Nolen is, per [place] statues bam care decision proxy. She is currently incarcerated at the [facility]. They are permitting her to participate in decisions at this time. [facility] Ethical issues impacting care: Important Contacts * Tamanna Sandhu, [facility]/ HCP[phone] or possibly transferred to [facility] ([phone]) later this week. * Guillermo Roberts, daughter friend: [phone] (cell) Prognosis Prognosis: Fair. In the absence of further respiratory failure, he will likely transition to a jail facility. However, he does have end-stage liver disease. He has high risk for aspiration. He will need extensive neuro rehabilitation. due to Osmotic Demyelination Syndrome Code Status: No Code Plan * Patient is incapacitated, will not regain capacity. . According to [place] statutes, health care proxy decision making falls to his only daughter. * NO CODE. * Spoke with daughter [facility] via [facility] [phone]) . Medical update provided. She called her aunt and then called me back to report she elects NO CODE status. She desires continued aggressive care short of NO CODE for now. She tells me she will be going to court and possibly transferred to [facility] facility ([phone]) later this week. She also provided blood consent while on phone witnessed by me and Yared (nurse). * SYMPTOMS: Dyspnea: sedated and paralyzed on mech vent, FiO2 50%. Pain: on Fentanyl 150mcg drip. * Palliative care phone number provided. * Palliative care will continue to follow to assist with symptom management and further clarification of treatment goals. . Attestation To help prompt me to consider important information that might be impacting today's encounter and assessment, information from prior notes written by myself or my colleagues may have been "brought forward" into today's note. My signature on this note, however, is an attestation that I personally performed the exam, history, and/or decision-making noted today, and, unless otherwise indicated, the interactions with patient, family, and staff as well as the review of records all occurred today. I also attest that the listed assessment and stated plan reflect my best clinical judgment today based on the combination of historical information, prior notes, and today's exam/ interactions. When time spent is documented, it refers only to time spent today by the signer, or if indicated, combined time spent today by collaborating physician/nurse practitioner. Rocío John Mar 28, 2017 12:15
[2017-03-28] MEDS: POTASSIUM PHOSPHATE/SODIUM PHOSPHATE 250 MG TAB PO SCH ×2 (13:01→20:16)
--- NOTE | 2017-03-28 14:49 | HHI.IDPN ---
Subjective Subjective Remarks Notes reviewed Temps low grade On sedation and nimbex On neosynephrine On the vent Has a lot of oral secretions Sputum with MDR Acinetobacter Johns in place, has a lot of sediment in the urine BC negative UC neg so far CXR reviewed - stable loan infiltrates Has liquid stool - C diff negative Antibiotics Unasyn Zyvox Flagyl Lines LIJ TLC Past Medical History ETOHism Allergies: Coded Allergies: PEANUTS (Unverified Allergy, Severe, 03/02/17) *MDRO Multi-Drug Resistant Organism (Verified Adverse Reaction, Unknown, ) MRSA PCR screen POSITIVE - 03/02/17 MDR Acinetobacter (sputum) - 03/25/17 Objective . Vital Signs Date Time Temp Pulse Resp B/P Pulse Ox O2 Delivery O2 Flow Rate FiO2 03/28/17 12:00 35 03/28/17 12:00 77 03/28/17 12:00 100 Mechanical Ventilator 35 03/28/17 11:28 96 35 03/28/17 10:00 80 03/28/17 08:42 96 35 03/28/17 08:00 100 Mechanical Ventilator 35 03/28/17 08:00 35 03/28/17 08:00 74 03/28/17 06:00 83 03/28/17 04:22 98 35 03/28/17 04:00 80 03/28/17 04:00 100 Mechanical Ventilator 35 03/28/17 04:00 97.9 80 18 105/74 100 03/28/17 04:00 35 03/28/17 02:00 79 03/28/17 00:00 99.6 88 18 94/61 95 03/28/17 00:00 88 03/28/17 00:00 35 03/28/17 00:00 97 Mechanical Ventilator 35 03/27/17 23:47 97 35 03/27/17 22:00 93 03/27/17 20:00 35 03/27/17 20:00 100 03/27/17 20:00 97 Mechanical Ventilator 35 03/27/17 20:00 102.7 100 18 107/73 97 03/27/17 19:36 96 35 03/27/17 18:00 93 03/27/17 16:00 99.2 96 18 102/68 96 03/27/17 16:00 Mechanical Ventilator 50 03/27/17 16:00 93 03/27/17 16:00 40 03/27/17 15:19 99 35 03/27/17 03/27/17 03/28/17 15:00 23:00 07:00 Intake Total 1773 ml 1306 ml 473 ml Output Total 750 ml 1750 ml 525 ml Balance 1023 ml -444 ml -52 ml IV Total 1647 ml 1266 ml 450 ml Tube Feeding 126 ml 23 ml Other 40 ml Output Urine Total 350 ml 1750 ml 525 ml Stool Total 400 ml # Bowel Movements 2 . Laboratory Tests Test 03/26/17 03/27/17 03/28/17 20:40 04:40 04:05 Hemoglobin 7.3 GM/DL 8.3 GM/DL 9.6 GM/DL Hematocrit 18.7 % 23.1 % 27.2 % White Blood Count 5.9 TH/MM3 9.3 TH/MM3 Red Blood Count 2.19 MIL/MM3 2.73 MIL/MM3 Mean Corpuscular Volume 105.6 FL 99.7 FL Mean Corpuscular Hemoglobin 37.9 PG 35.2 PG Mean Corpuscular Hemoglobin 35.9 % 35.3 % Concent Red Cell Distribution Width 16.3 % 16.1 % Platelet Count 115 TH/MM3 153 TH/MM3 Mean Platelet Volume 9.1 FL 8.6 FL Neutrophils (%) (Auto) 76.4 % 79.0 % Lymphocytes (%) (Auto) 14.9 % 12.9 % Monocytes (%) (Auto) 6.0 % 5.8 % Eosinophils (%) (Auto) 1.7 % 1.1 % Basophils (%) (Auto) 1.0 % 1.2 % Neutrophils # (Auto) 4.5 TH/MM3 7.4 TH/MM3 Lymphocytes # (Auto) 0.9 TH/MM3 1.2 TH/MM3 Monocytes # (Auto) 0.4 TH/MM3 0.5 TH/MM3 Eosinophils # (Auto) 0.1 TH/MM3 0.1 TH/MM3 Basophils # (Auto) 0.1 TH/MM3 0.1 TH/MM3 CBC Comment DIFF FINAL DIFF FINAL Differential Comment Hematology Comments Laboratory Tests Test 03/26/17 03/27/17 03/27/17 03/28/17 20:40 04:40 22:00 04:04 Sodium Level 139 MEQ/L 138 MEQ/L Potassium Level 3.2 MEQ/L 3.0 MEQ/L 3.3 MEQ/L Chloride Level 106 MEQ/L 106 MEQ/L Carbon Dioxide Level 20.9 MEQ/L 22.4 MEQ/L Anion Gap 12 MEQ/L 10 MEQ/L Blood Urea Nitrogen 30 MG/DL 29 MG/DL Creatinine 1.22 MG/DL 1.15 MG/DL Estimat Glomerular Filtration 61 ML/MIN 65 ML/MIN Rate Random Glucose 111 MG/DL 90 MG/DL Lactic Acid Level 3.6 mmol/L 2.7 mmol/L 2.3 mmol/L Calcium Level 7.5 MG/DL 7.4 MG/DL Phosphorus Level 2.9 MG/DL 2.7 MG/DL Magnesium Level 2.0 MG/DL 2.0 MG/DL Protein Corrected Calcium 8.2 MG/DL Total Bilirubin 2.3 MG/DL Aspartate Amino Transf 82 U/L (AST/SGOT) Alanine Aminotransferase 37 U/L (ALT/SGPT) Alkaline Phosphatase 70 U/L Total Creatine Kinase 265 U/L Total Protein 5.6 GM/DL Albumin 2.0 GM/DL Ammonia 26 MCMOL/L Test 03/28/17 04:05 Sodium Level 138 MEQ/L Potassium Level 3.0 MEQ/L Chloride Level 105 MEQ/L Carbon Dioxide Level 21.9 MEQ/L Anion Gap 11 MEQ/L Blood Urea Nitrogen 24 MG/DL Creatinine 1.13 MG/DL Estimat Glomerular Filtration 66 ML/MIN Rate Random Glucose 90 MG/DL Calcium Level 8.1 MG/DL Phosphorus Level 2.0 MG/DL Magnesium Level 1.7 MG/DL Total Bilirubin 3.2 MG/DL Aspartate Amino Transf 92 U/L (AST/SGOT) Alanine Aminotransferase 32 U/L (ALT/SGPT) Alkaline Phosphatase 79 U/L Total Protein 5.5 GM/DL Albumin 1.7 GM/DL Microbiology Date/Time Procedure Status Source Growth 03/25/17 17:00 Gram Stain - Final Complete Sputum Expectorated Sputum 03/25/17 17:00 Sputum Culture - Final Complete Acinetobacter Baumannii/Haemol 03/25/17 17:00 Received Other Pending Imaging Chest X-Ray 03/27/17 0600 Signed Impressions: Service Date/Time: Monday, March 27, 2017 02:33 - CONCLUSION: No significant interval change. Víctor Rosas MD Chest X-Ray 03/26/17 0600 Signed Impressions: Service Date/Time: Sunday, March 26, 2017 05:35 - CONCLUSION: Improving bilateral pulmonary infiltrates Víctor Rosas MD Chest X-Ray 03/25/17 1004 Signed Impressions: Service Date/Time: Saturday, March 25, 2017 10:03 - CONCLUSION: 1. Worsening bibasilar consolidation. 2. Endotracheal tube with tip at the thoracic inlet and should be advanced at least 3-4 cm. 3. Adequate placement of left jugular central line without pneumothorax. Logan Morgan MD Chest X-Ray 03/26/17 0600 Signed Impressions: Service Date/Time: Sunday, March 26, 2017 05:35 - CONCLUSION: Improving bilateral pulmonary infiltrates Víctor Rosas MD Lower Extremity Ultrasound 03/25/17 0000 Signed Impressions: Service Date/Time: Saturday, March 25, 2017 22:17 - CONCLUSION: No evidence of DVT. Víctor Rosas MD CT Angiography 03/21/17 0000 Signed Impressions: Service Date/Time: March 00:33 - CONCLUSION: No evidence of pulmonary embolism is identified. Mild atelectasis left lung base. Fluid or phlegm within the trachea. Milo Muhammad MD Brain MRI 03/20/17 0000 Signed Impressions: Service Date/Time: Monday, March 20, 2017 16:11 - CONCLUSION: Abnormal appearance to the ruthy with some extension into the cortical spinal tracts of the posterior thalamus was bilaterally. 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 Cheo Martínez MD Abdomen X-Ray 03/20/17 0000 Signed Impressions: Service Date/Time: Monday, March 20, 2017 18:12 - CONCLUSION: Tip of the Dobbhoff tube projecting towards the pylorus. Cheo Barrera Jr., MD Abdomen Ultrasound 03/20/17 0000 Signed Impressions: Service Date/Time: Monday, March 20, 2017 11:38 - CONCLUSION: 1. Hepatosplenomegaly without focal lesion. 2. Probable sludge within the lumen of the gallbladder. No intrahepatic duct. Cheo Martínez MD Shoulder X-Ray 03/02/17 1404 Signed Impressions: Service Date/Time: Thursday, March 02, 2017 15:18 - CONCLUSION: No evidence of recent bony injury. Deformity of the lateral left clavicle suggests old healed trauma. Cheo Martínez MD Maxillofacial CT 03/02/17 1342 Signed Impressions: Service Date/Time: Thursday, March 02, 2017 14:52 - CONCLUSION: Negative CT of the facial bones. Cheo Martínez MD Head CT 03/02/17 1342 Signed Impressions: Service Date/Time: Thursday, March 02, 2017 14:52 - CONCLUSION: 1. Prominent scalp swelling left frontal and parietal region. No skull fracture seen. 2. Intracranial contents are intact without acute finding. Cheo Martínez MD Chest CT 03/02/17 1342 Signed Impressions: Service Date/Time: Thursday, March 02, 2017 15:04 - CONCLUSION: 1. Abnormal appearance of the lateral left clavicle suggesting a combination of acute and chronic bony injury. Fracture lucencies without bridging callus is seen the region of the coracoid process. 2. The lungs are clear. No evidence of pneumothorax. 3. Moderate size hiatus hernia. Cheo Martínez MD Cervical Spine CT 03/02/17 1342 Signed Impressions: Service Date/Time: Thursday, March 02, 2017 14:52 - CONCLUSION: Negative CT cervical spine. Cheo Martínez MD Abdomen/Pelvis CT 03/02/17 134 Signed Impressions: Service Date/Time: Thursday, March 02, 2017 15:04 - CONCLUSION: Moderate size hiatus hernia. Scattered small sigmoid diverticula. Otherwise negative exam. Cheo Martínez MD Chest X-Ray 03/25/17 1004 Signed Impressions: Service Date/Time: Saturday, March 25, 2017 10:03 - CONCLUSION: 1. Worsening bibasilar consolidation. 2. Endotracheal tube with tip at the thoracic inlet and should be advanced at least 3-4 cm. 3. Adequate placement of left jugular central line without pneumothorax. Logan Morgan MD Chest X-Ray 03/23/17 0000 Signed Impressions: Service Date/Time: Thursday, March 23, 2017 14:27 - CONCLUSION: 1. Feeding tube in place with what appears to be a loop in the hypopharynx. 2. Bibasilar areas of consolidation or atelectasis. Casper Vargas MD Physical Exam GENERAL: sedated and on paralytics, on the vent, not in distress SKIN: Warm and dry. No generalized rash. Has some edema in his upper extremities. HEENT: Pupils equal round and reactive. Mild scleral icterus. Has scleral edema. No injection or drainage. Orally intubated. Poor dentition NECK: Trachea midline. No JVD or lymphadenopathy. Supple, nontender, no meningeal signs. CARDIOVASCULAR: Regular rate and rhythm without murmurs, gallops, or rubs. Tachycardic. RESPIRATORY: Has scattered rhonchi, decreased BS at bases, worse on R than on L. . GASTROINTESTINAL: Abdomen mildly distended, bowel sounds are present and normoactive, no reaction to palpation MUSCULOSKELETAL: Lower extremities without clubbing, cyanosis, or edema. No joint effusion. NEUROLOGICAL: Sedated and on paralytics PSYCH: Unable to assess : Johns cath in place with a lot of sediment LINE: central line site ok Assessment & Plan Remarks IMPRESSION Sepsis syndrome, due to PNA - now on vent - has MDR Acinetobacter Septic shock Known ETOH abuse Encephalopathy - sepsis, ETOH, ODS Respiratory failure Diarrhea, C diff negative RECOMMENDATION Agree with Unasyn Stop Zyvox Continue Flagyl for now Follow temps Monitor progress Follow new C/S Umm Lisa MD Mar 28, 2017 14:49
[2017-03-28] MEDS: METOCLOPRAMIDE HCL 10 MG/2 ML VIAL IV PUSH SCH ×2 (15:13→20:17)
--- NOTE | 2017-03-28 15:53 | HHI.HCSW ---
Physician Practice Manager Visit [place] Service Issues Palliative care received a call from daughter's significant other regarding daughter Tamanna coming to visit her father. See palliative care PSYCHOLOGIST for additional infomation. SW spoke with shelter director of casework Ms. Truong (sp?) who reports Tamanna would need to request visitation from their warden, however she is set to transfer to [facility] any day and it is "unlikely she will be granted ability to visit". Also confirmed [facility] warden will need to be consulted regarding Tamanna's ability to serve as medical proxy decision maker when she arrives at new facility. Palliative care SW will assist in contacting [facility] for clarification when daughter is transferred. At this time karlie Nolen is still at [facility] and able to serve in this role. Tamanna Sandhu booking number (needed when contacting shelter system): #[id number] [facility] facility ([phone] or [phone]) Follow Up Visit Palliative care will continue to follow throughout hospitalization. Anna Marie Barrera, AIRFRAME DESIGN ENGINEER Mar 28, 2017 15:53
--- NOTE | 2017-03-28 17:58 | RADRPT ---
EXAM DATE/TIME: 03/28/2017 17:22 [facility] COMPARISON: MRI BRAIN W & W/O CONTRAST, March 20, 2017, 16:11. INDICATIONS : Altered mental status. Central pontine myelolysis. MEDICAL HISTORY : None. SURGICAL HISTORY : None. ENCOUNTER: Subsequent ACUITY: 1 week PAIN SCORE: Nonresponsive. LOCATION: Head. TECHNIQUE: Multiplanar, multisequence MRI of the brain was performed without contrast. FINDINGS: There continues to be signal abnormality involving the ruthy extending into the base of the cerebral p eduncles characteristic of osmotic myelination syndrome. There is also slight signal abnormality and streaky diffusion involving the thalami laterally. No cortical infarction is seen. No extra axial flu id collections are present. Susceptibility weighted images demonstrate normal the malleus. Note is ma de of fluid involving the right maxillary sinus as well as the ethmoid air cells and sphenoid sinus b ecause of disease in the mastoid air cells as well. A cavum septum pellucidum et ergae a is present. CONCLUSION: 1. 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 Small subacute ischemic bilatera l thalamic infarcts. 2. There has been no significant change when compared to the prior exam. Yinka Harman MD on March 28, 2017 at 17:54 Board Certified Radiologist. This report was verified electronically.
--- NOTE | 2017-03-28 18:21 | RADRPT ---
EXAM DATE/TIME: 03/28/2017 17:22 [facility] COMPARISON: MRI BRAIN W/O CONTRAST, March 28, 2017, 17:22. INDICATIONS : Altered mental status. Central pontine myelolysis. MEDICAL HISTORY : None. SURGICAL HISTORY : None. ENCOUNTER: Subsequent ACUITY: 1 week PAIN SCORE: Nonresponsive. LOCATION: Head. Please note a normal MRA of the brain does not entirely exclude the possibility of a small aneurysm, nor the possibility of distal intracranial vessel disease. TECHNIQUE: 3D time of flight MRA was performed. Source images, multiplanar STS MIP, and 3D volume MIP reconstru ctions were reviewed. FINDINGS: There is excellent visualization of the major intracranial arteries out to the second-order branch ve ssels. There is no evidence for aneurysm, vessel truncation or stenosis, and no evidence for vascula r malformation. CONCLUSION: Unremarkable examination. Bety Castillo MD on March 28, 2017 at 18:17 Board Certified Radiologist. This report was verified electronically.
[2017-03-29] VITALS (18 sets, daily range): BP systolic 77–112; BP diastolic 51–78; PULSE 71–113; RESP 18–19; TEMP 98.3–103; O2SAT 96–100
[2017-03-29] MEDS: POTASSIUM CHLOR 40 MEQ PREMIX 100 ML IV PRN ×2 (00:10→00:11)
[2017-03-29] MEDS: MEROPENEM INJ 1,000 MG in SODIUM CHLORIDE 0.9% INJ 100 ML IV SCH ×3 (00:11→17:53)
[2017-03-29] MEDS: PHENYLEPHRINE INJ 40 MG in DEXTROSE 5% IN WATE 500 ML INJ 496 ML IV SCH ×2 (00:12)
[2017-03-29] MEDS: RESP: ALBUTEROL 2.5 MG/IPRATROPIUM 0.5 MG NEB (SCH) NEB ×5 (03:52→20:27)
[2017-03-29] MEDS: RESP: SODIUM CHLORIDE 3% 4 ML NEB NEB SCH ×5 (03:52→20:28)
[2017-03-29] MEDS: INSULIN NovoLIN REGULAR SUPPLEMENTAL SCALE SQ SCH ×7 (04:00→23:55)
[2017-03-29] MEDS: POTASSIUM PHOSPHATE/SODIUM PHOSPHATE 250 MG TAB PO SCH (04:47)
[2017-03-29] MEDS: AMPICILLIN-SULBACTAM INJ 3 GM in SODIUM CHLORIDE 0.9% INJ 100 ML IV SCH ×4 (04:47→22:11)
[2017-03-29] MEDS: METOPROLOL TARTRATE 5 MG/5 ML VIAL IV PUSH SCH ×3 (04:47→17:00)
[2017-03-29] MEDS: HEPARIN SODIUM - SQ 10,000 UNITS/ML VIAL SQ SCH ×3 (04:48→20:41)
[2017-03-29] MEDS: metroNIDAZOLE 500 MG TAB PO SCH ×3 (04:48→20:41)
[2017-03-29] MEDS: METOCLOPRAMIDE HCL 10 MG/2 ML VIAL IV PUSH SCH ×3 (04:48→20:41)
[2017-03-29] MEDS: FREE WATER NG SCH ×5 (04:48→23:55)
[2017-03-29 05:10] LABS: AUTOMATED NEUTROPHIL # 7.7 TH/MM3 (1.8-7.7); BASOPHIL # 0.1 TH/MM3 (0-0.2); BASOPHIL % 0.7 % (0.0-2.0); EOSINOPHIL % 0.5 % (0.0-4.0); HEMATOCRIT 26.9 % (39.0-51.0); HEMO FLAGS DIFF FINAL; LYMPH % 9.1 % (9.0-44.0); LYMPHOCYTE # 0.8 TH/MM3 (1.0-4.8); MEAN CORPUSCULAR HEMOGLOBIN 37.4 PG (27.0-34.0); MEAN CORPUSCULAR HGB CONC 35.6 % (32.0-36.0); MONO % 4.9 % (0.0-8.0); NEUT % 84.8 % (16.0-70.0); PLATELET COUNT 167 TH/MM3 (150-450); RED BLOOD COUNT 2.56 MIL/MM3 (4.50-5.90); RED CELL DISTRIBUTION WIDTH 16.1 % (11.6-17.2); WHITE BLOOD COUNT 9.1 TH/MM3 (4.0-11.0)
[2017-03-29 05:37] LABS: ALKALINE PHOSPHATASE 89 U/L (45-117); ALT (GPT) 28 U/L (12-78); ANION GAP 8 MEQ/L (5-15); AST (GOT) 85 U/L (15-37); BICARBONATE 21.6 MEQ/L (21.0-32.0); BLOOD UREA NITROGEN 22 MG/DL (7-18); CHLORIDE 107 MEQ/L (98-107); GLOMERULAR FILTRATION RATE 72 ML/MIN (>89); INDIRECT BILIRUBIN 0.8 MG/DL (0.0-0.8); POTASSIUM 5.5 MEQ/L (3.5-5.1); SODIUM (NA) 137 MEQ/L (136-145); TOTAL BILIRUBIN ADULT 2.5 MG/DL (0.2-1.0)
[2017-03-29 05:38] LABS: CREATINE KINASE 62 U/L (39-308)
--- NOTE | 2017-03-29 06:25 | RADRPT ---
EXAM DATE/TIME: 03/29/2017 05:09 [facility] COMPARISON: No previous studies available for comparison. INDICATIONS : Shortness of breath. MEDICAL HISTORY : None. SURGICAL HISTORY : None. ENCOUNTER: Subsequent ACUITY: 1 month PAIN SCORE: Non-responsive. LOCATION: Bilateral chest FINDINGS: Right greater than left basilar consolidation again noted not significantly changed. Small, bilateral pleural effusions are likely, also not significantly changed. No pneumothorax. Heart size stable, within normal limits. Endotracheal tube tip is approximately 3 cm above the joanie, unchanged. There is a left internal jug ular central venous catheter with tip in the superior vena cava. CONCLUSION: No significant change bibasilar consolidation and small effusions. Casper Clifton MD on March 29, 2017 at 6:23 Board Certified Radiologist. This report was verified electronically.
[2017-03-29] MEDS: CHLORHEXIDINE 0.12% (ORAL KIT) 15 ML CUP MT SCH ×2 (08:00→20:40)
[2017-03-29] MEDS: LACTOBACILLUS ACIDOPHILUS TAB PO SCH ×3 (08:23→18:00)
[2017-03-29] MEDS: SODIUM CHLOR 0.45% 1000 ML INJ 1,000 ML IV SCH ×2 (08:23→19:55)
[2017-03-29] MEDS: DOCUSATE SODIUM 100 MG CAP PO SCH ×2 (08:23→20:41)
[2017-03-29] MEDS: LACTULOSE SYRUP 20 GM/30 ML CUP PO SCH ×2 (08:24→20:41)
[2017-03-29] MEDS: THIAMINE INJ 100 MG in SODIUM CHLORIDE 0.9% INJ 100 ML IV SCH (08:24)
[2017-03-29] MEDS: RIFAXIMIN 550 MG TAB PO SCH ×2 (08:33→20:41)
[2017-03-29] MEDS: PANTOPRAZOLE SODIUM 40 MG VIAL IV SCH (08:34)
[2017-03-29] MEDS: SODIUM CHLORIDE 0.9% FLUSH 10 ML FLUSH IVF SCH (09:00)
[2017-03-29] MEDS: ARTIFICIAL TEARS OPTH SOLN 15 ML BTL EACH EYE SCH ×2 (09:00→18:00)
[2017-03-29] MEDS: SODIUM CHLORIDE 0.9% FLUSH 10 ML FLUSH IV FLUSH SCH ×2 (09:21→20:40)
[2017-03-29] MEDS: MUPIROCIN 2% OINT 1 APPLIC/GM SYR EACH NARE SCH ×2 (09:21→20:40)
[2017-03-29] MEDS: ACETAMINOPHEN 325 MG TAB PO PRN (09:44)
--- NOTE | 2017-03-29 13:16 | HHI.IDPN ---
Subjective Subjective Remarks Notes reviewed D/W RN Spiked to 103 this morning, temps better now Opens eyes when stimulated, did not follow commands No further vomiting, TF still on hold Has a lot of ET secretions On fentanyl, versed On neosynephrine Johns changed yesterday Sputum with MDR Acinetobacter Johns in place, has a lot of sediment in the urine BC negative UC neg so far CXR reviewed - stable loan infiltrates Has liquid stool - C diff negative Antibiotics Unasyn Zyvox Flagyl Lines LIJ TLC Past Medical History ETOHism Allergies: Coded Allergies: PEANUTS (Unverified Allergy, Severe, 03/02/17) *MDRO Multi-Drug Resistant Organism (Verified Adverse Reaction, Unknown, ) MRSA PCR screen POSITIVE - 03/02/17 MDR Acinetobacter (sputum) - 03/25/17 Objective . Vital Signs Date Time Temp Pulse Resp B/P Pulse Ox O2 Delivery O2 Flow Rate FiO2 03/29/17 12:06 98 35 03/29/17 12:00 35 03/29/17 12:00 98.7 78 18 112/78 98 03/29/17 12:00 98 Mechanical Ventilator 35 03/29/17 12:00 78 03/29/17 10:00 94 03/29/17 09:31 97 35 03/29/17 08:00 103.0 102 18 91/61 96 03/29/17 08:00 96 Mechanical Ventilator 35 03/29/17 08:00 35 03/29/17 08:00 102 03/29/17 06:00 109 03/29/17 04:00 35 03/29/17 04:00 99.2 109 19 97/65 100 03/29/17 04:00 109 03/29/17 04:00 100 Mechanical Ventilator 35 03/29/17 03:52 99 35 03/29/17 02:25 99 35 03/29/17 02:00 107 03/29/17 00:00 100.1 113 19 89/56 96 03/29/17 00:00 96 Mechanical Ventilator 35 03/29/17 00:00 35 03/29/17 00:00 113 03/28/17 22:00 98 03/28/17 20:00 96 03/28/17 20:00 99 Mechanical Ventilator 35 03/28/17 20:00 35 03/28/17 20:00 99.0 96 19 104/69 99 03/28/17 19:29 98 35 03/28/17 18:00 80 03/28/17 17:15 100 100 03/28/17 16:31 92 35 03/28/17 16:00 99.3 95 18 92/66 98 03/28/17 16:00 100 Mechanical Ventilator 35 03/28/17 16:00 35 03/28/17 16:00 74 03/28/17 14:00 84 03/28/17 03/28/17 03/29/17 15:00 23:00 07:00 Intake Total 1207 ml 760 ml 1060 ml Output Total 722 ml 400 ml 350 ml Balance 485 ml 360 ml 710 ml Intake Oral 0 ml 0 ml IV Total 1107 ml 560 ml 860 ml Tube Feeding 100 ml Other 200 ml 200 ml Output Urine Total 722 ml 400 ml 350 ml # Bowel Movements 1 1 0 . Laboratory Tests Test 03/28/17 03/29/17 04:05 04:30 White Blood Count 9.3 TH/MM3 9.1 TH/MM3 Red Blood Count 2.73 MIL/MM3 2.56 MIL/MM3 Hemoglobin 9.6 GM/DL 9.6 GM/DL Hematocrit 27.2 % 26.9 % Mean Corpuscular Volume 99.7 FL 105.0 FL Mean Corpuscular Hemoglobin 35.2 PG 37.4 PG Mean Corpuscular Hemoglobin 35.3 % 35.6 % Concent Red Cell Distribution Width 16.1 % 16.1 % Platelet Count 153 TH/MM3 167 TH/MM3 Mean Platelet Volume 8.6 FL 8.7 FL Neutrophils (%) (Auto) 79.0 % 84.8 % Lymphocytes (%) (Auto) 12.9 % 9.1 % Monocytes (%) (Auto) 5.8 % 4.9 % Eosinophils (%) (Auto) 1.1 % 0.5 % Basophils (%) (Auto) 1.2 % 0.7 % Neutrophils # (Auto) 7.4 TH/MM3 7.7 TH/MM3 Lymphocytes # (Auto) 1.2 TH/MM3 0.8 TH/MM3 Monocytes # (Auto) 0.5 TH/MM3 0.4 TH/MM3 Eosinophils # (Auto) 0.1 TH/MM3 0.0 TH/MM3 Basophils # (Auto) 0.1 TH/MM3 0.1 TH/MM3 CBC Comment DIFF FINAL DIFF FINAL Differential Comment Hematology Comments Laboratory Tests Test 03/27/17 03/28/17 03/28/17 03/28/17 22:00 04:04 04:05 22:15 Potassium Level 3.3 MEQ/L 3.0 MEQ/L 2.5 MEQ/L Lactic Acid Level 2.3 mmol/L Ammonia 26 MCMOL/L Sodium Level 138 MEQ/L Chloride Level 105 MEQ/L Carbon Dioxide Level 21.9 MEQ/L Anion Gap 11 MEQ/L Blood Urea Nitrogen 24 MG/DL Creatinine 1.13 MG/DL Estimat Glomerular Filtration 66 ML/MIN Rate Random Glucose 90 MG/DL Calcium Level 8.1 MG/DL Phosphorus Level 2.0 MG/DL Magnesium Level 1.7 MG/DL Total Bilirubin 3.2 MG/DL Aspartate Amino Transf 92 U/L (AST/SGOT) Alanine Aminotransferase 32 U/L (ALT/SGPT) Alkaline Phosphatase 79 U/L Total Protein 5.5 GM/DL Albumin 1.7 GM/DL Test 03/29/17 03/29/17 04:30 09:40 Sodium Level 137 MEQ/L Potassium Level 5.5 MEQ/L 4.9 MEQ/L Chloride Level 107 MEQ/L Carbon Dioxide Level 21.6 MEQ/L Anion Gap 8 MEQ/L Blood Urea Nitrogen 22 MG/DL Creatinine 1.06 MG/DL Estimat Glomerular Filtration 72 ML/MIN Rate Random Glucose 97 MG/DL Calcium Level 8.0 MG/DL Phosphorus Level 2.0 MG/DL Magnesium Level 2.0 MG/DL Total Bilirubin 2.5 MG/DL Direct Bilirubin 1.7 MG/DL Indirect Bilirubin 0.8 MG/DL Aspartate Amino Transf 85 U/L (AST/SGOT) Alanine Aminotransferase 28 U/L (ALT/SGPT) Alkaline Phosphatase 89 U/L Ammonia 15 MCMOL/L Total Creatine Kinase 62 U/L Total Protein 5.5 GM/DL Albumin 1.6 GM/DL Microbiology Date/Time Procedure Status Source Growth 03/29/17 10:56 Aerobic Blood Culture Received Blood Peripheral Pending 03/29/17 10:56 Anaerobic Blood Culture Received Blood Peripheral Pending Imaging Chest X-Ray 03/27/17 0600 Signed Impressions: Service Date/Time: Monday, March 27, 2017 02:33 - CONCLUSION: No significant interval change. Víctor Rosas MD Chest X-Ray 4/25/17 0600 Signed Impressions: Service Date/Time: Sunday, March 26, 2017 05:35 - CONCLUSION: Improving bilateral pulmonary infiltrates Víctor Rosas MD Chest X-Ray 03/25/17 1004 Signed Impressions: Service Date/Time: Saturday, March 25, 2017 10:03 - CONCLUSION: 1. Worsening bibasilar consolidation. 2. Endotracheal tube with tip at the thoracic inlet and should be advanced at least 3-4 cm. 3. Adequate placement of left jugular central line without pneumothorax. Logan Morgan MD Chest X-Ray 03/26/17 0600 Signed Impressions: Service Date/Time: Sunday, March 26, 2017 05:35 - CONCLUSION: Improving bilateral pulmonary infiltrates Víctor Rosas MD Lower Extremity Ultrasound 03/25/17 0000 Signed Impressions: Service Date/Time: Saturday, March 25, 2017 22:17 - CONCLUSION: No evidence of DVT. Víctor Rosas MD CT Angiography 03/21/17 0000 Signed Impressions: Service Date/Time: March 00:33 - CONCLUSION: No evidence of pulmonary embolism is identified. Mild atelectasis left lung base. Fluid or phlegm within the trachea. Milo Muhammad MD Brain MRI 03/20/17 0000 Signed Impressions: Service Date/Time: Monday, March 20, 2017 16:11 - CONCLUSION: Abnormal appearance to the ruthy with some extension into the cortical spinal tracts of the posterior thalamus was bilaterally. 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 Cheo Martínez MD Abdomen X-Ray 03/20/17 0000 Signed Impressions: Service Date/Time: Monday, March 20, 2017 18:12 - CONCLUSION: Tip of the Dobbhoff tube projecting towards the pylorus. Cheo Barrera Jr., MD Abdomen Ultrasound 03/20/17 0000 Signed Impressions: Service Date/Time: Monday, March 20, 2017 11:38 - CONCLUSION: 1. Hepatosplenomegaly without focal lesion. 2. Probable sludge within the lumen of the gallbladder. No intrahepatic duct. Cheo Martínez MD Shoulder X-Ray 03/02/17 1404 Signed Impressions: Service Date/Time: Thursday, March 02, 2017 15:18 - CONCLUSION: No evidence of recent bony injury. Deformity of the lateral left clavicle suggests old healed trauma. Cheo Martínez MD Maxillofacial CT 03/02/17 1342 Signed Impressions: Service Date/Time: Thursday, March 02, 2017 14:52 - CONCLUSION: Negative CT of the facial bones. Cheo Martínez MD Head CT 03/02/17 1342 Signed Impressions: Service Date/Time: Thursday, March 02, 2017 14:52 - CONCLUSION: 1. Prominent scalp swelling left frontal and parietal region. No skull fracture seen. 2. Intracranial contents are intact without acute finding. Cheo Martínez MD Chest CT 03/02/17 1342 Signed Impressions: Service Date/Time: Thursday, March 02, 2017 15:04 - CONCLUSION: 1. Abnormal appearance of the lateral left clavicle suggesting a combination of acute and chronic bony injury. Fracture lucencies without bridging callus is seen the region of the coracoid process. 2. The lungs are clear. No evidence of pneumothorax. 3. Moderate size hiatus hernia. Cheo Martínez MD Cervical Spine CT 03/02/17 1342 Signed Impressions: Service Date/Time: Thursday, March 02, 2017 14:52 - CONCLUSION: Negative CT cervical spine. Cheo Martínez MD Abdomen/Pelvis CT 03/02/17 1342 Signed Impressions: Service Date/Time: Thursday, March 02, 2017 15:04 - CONCLUSION: Moderate size hiatus hernia. Scattered small sigmoid diverticula. Otherwise negative exam. Cheo Martínez MD Chest X-Ray 03/25/17 1004 Signed Impressions: Service Date/Time: Saturday, March 25, 2017 10:03 - CONCLUSION: 1. Worsening bibasilar consolidation. 2. Endotracheal tube with tip at the thoracic inlet and should be advanced at least 3-4 cm. 3. Adequate placement of left jugular central line without pneumothorax. Logan Morgan MD Chest X-Ray 03/23/17 0000 Signed Impressions: Service Date/Time: Thursday, March 23, 2017 14:27 - CONCLUSION: 1. Feeding tube in place with what appears to be a loop in the hypopharynx. 2. Bibasilar areas of consolidation or atelectasis. Casper Vargas MD Physical Exam GENERAL: opens eyes, when stimulated, on the vent, not in distress. Not following SKIN: Warm and dry. No generalized rash. Has some edema in his upper extremities. HEENT: Pupils equal round and reactive. Mild scleral icterus. Has scleral edema. No injection or drainage. Orally intubated. Poor dentition NECK: Trachea midline. No JVD or lymphadenopathy. Supple, nontender, no meningeal signs. CARDIOVASCULAR: Regular rate and rhythm without murmurs, gallops, or rubs. Tachycardic. RESPIRATORY: Has scattered rhonchi, decreased BS at bases GASTROINTESTINAL: Abdomen mildly distended, bowel sounds are present and normoactive, no reaction to palpation MUSCULOSKELETAL: Lower extremities without clubbing, cyanosis, or edema. No joint effusion. NEUROLOGICAL: Opens eyes when stimulated, not following, not focusing PSYCH: Unable to assess : Johns cath in place, urine looks better LINE: central line site ok Assessment & Plan Remarks IMPRESSION Sepsis syndrome, due to PNA - on vent - has MDR Acinetobacter Septic shock Known ETOH abuse Encephalopathy - sepsis, ETOH, CPM Respiratory failure Diarrhea, C diff negative RECOMMENDATION Continue Unasyn for MDR Acinetobacter Continue Flagyl for now 2 BC today Follow temps Monitor progress Follow new C/S D/W RN Spoke with sister in law Dr Adams covering me this weekend Umm Lisa MD Mar 29, 2017 13:16
[2017-03-29] MEDS: MIDAZOLAM 100 MG/ML INJ 100 ML IV SCH (18:33)
--- NOTE | 2017-03-29 19:39 | HHI.CCPN ---
Subjective Remarks/Hospital Course This is a 61-year-old male with a past history of alcohol abuse and a prior admission in 2015 for severe life-threatening hyponatremia at that time with a serum sodium of 98. He presents today with what he states is a 13 day history of worsening fatigue and weakness. He is very altered and is very difficult to understand the patient. What I can understand from him, is that at some point during these 13 days he has fallen and hit his face. Otherwise he states he lays on the couch, and has not gotten not much. He states he drinks 1 beer in the morning, and 1 beer in the afternoon. He does endorse taking some Xanax to help him sleep. He denies other drug use. He denies chest pain, shortness of breath, fever, chills, nausea, vomiting, abdominal pain. It is very difficult to get him to answer anymore questions about his medical history. His speech is very slurred and he is trying to talk about how he misses his daughter. Emergency department he was found to have a serum sodium of 99, a bilirubin of 8.9, lactate of 9.8, ammonia of 60, CK of 7000, elevated troponin of 4.9 with a normal MB ratio, creatinine 1.5, serum bicarbonate of 13. His white count is 12 , platelets 112. INR 1.9. His MELD calculates at 26. 4/2: Sodium level rapidly corrected overnight, likely secondary to appropriate correction of severe life-threatening dehydration. NS fluids changed to 1/2NS and correction slowed down significantly. sodium up to 130 this AM. CK downtrending. however, patient remains severely hypotensive requiring Levophed to maintain a map > 65 mmHg. This AM, serum K 1.6 (confirmed). started replacement with 200meq KCl and recheck K. 03/04: persists in vasoplegic distributive shock. afebrile. no evidence of infection. wbc downtrending. persists with severe life-threatening electrolyte derangements. passed swallow eval for nectar thick liquids. sodium stable at 131. ck downtrending. 03/05: persists in distributive shock. echo yesterday with EF 30%, globally decreased function. milrinone added yesterday with improvement in vasopressor requirement. still with multiple electrolyte abnormalities despite very aggressive replacement. very poor appetite. sodium stable at 131, which appears to be around baseline for him, looking back at prior records. also became agitated and delirious yesterday, likely secondary to etoh withdraw. started on Ativan and Librium. 03/06: electrolyte derangements persist. placed on continuous NaPhos infusion x 24h due to severe life-threatening hypophosphatemia. serial K, phos checks. weaning off levophed, milrinone persists. still poor appetite. sodium jumped from 132 to 139, but no significant mental status change, and we did not increase sodium load. 03/07: still requiring high electrolyte replacement. milrinone weaned to 0.375 mcg /kg/min overnight. still doing well with that. delirium persists. 03/08 Remains on milrinone. Electrolyte improving. Remains very lethargic, intermittently follows commands 03/09: Continues to be lethargic but wakes up follows some commands. Remains on milrinone will DC today. T max 100.1, urine output adequate sodium is 143 03/10: More awake alert, ate 50% of break fast. Will DC Dobhoff. Discontinue arterial and central lines. Delirium also improved, remains weak 03/11: doing much better this morning. no complaints. still with poor appetite. electrolytes improved. 03/20: We consulted for respiratory failure. Patient was last seen in room 1415 CMP receiving oral cares and became acutely hypoxic saturations 82% with coarse breath sounds. Halicat called. Patient was placed on a Venturi mask 50 % with desaturations to the mid 90s. He received Solu-Medrol 20 mg IV 1, Lasix 40 mg IV 1 and was transferred IM [facility] 521. Hemodynamically stable. Poor mentation 03/25: Reconsulted due to respiratory failure. Patient with gurgling/ transmitted upper airway sounds. Respiration the 50s. Decision made to orotracheally intubate. Noted to have been febrile with increased O2 course over the past 48 hours. 03/26: Afebrile. Requiring Nimbex drip for ventilator synchrony. Decreased urine output noted. Hemoglobin decreased likely dilutional. Tolerating tube feeding. Electrolytes been replaced. 03/27: Tmax 100.9. Currently 97.2. +6 L past 24 hours. Hemoglobin 8 transfuse overnight. Potassium 3. We'll discontinue Nimbex drip for vent synchrony today. 03/28: Afebrile. Negative fluid balance past 24 hours. Hemoglobin currently 9. Potassium 3.0. Currently on sedation vacation positive gag and otherwise unresponsive. Subjective: 03/29: Tmax 103. Currently afebrile. Not tolerating tube feeds. Remains on Kiran-Synephrine. Did not tolerate sedation vacation back on Versed at 5 mg an hour fentanyl drip at 100 mg an hour. One bowel movement. Objective Vital Signs Date Time Temp Pulse Resp B/P Pulse Ox O2 Delivery O2 Flow Rate FiO2 03/29/17 18:10 71 03/29/17 16:21 100 35 03/29/17 16:00 Mechanical Ventilator 03/29/17 16:00 98.3 18 77/51 03/27/17 04:00 15.00 Intake and Output 03/28/17 03/28/17 03/29/17 08:00 16:00 00:00 Intake Total 473 ml 1207 ml 760 ml Output Total 525 ml 722 ml 400 ml Balance -52 ml 485 ml 360 ml Result Diagram: 03/29/17 0430 03/29/17 0940 Other Results Microbiology Date/Time Procedure Status Source Growth 03/29/17 10:56 Aerobic Blood Culture Received Blood Peripheral Pending 03/29/17 10:56 Anaerobic Blood Culture Received Blood Peripheral Pending 03/25/17 17:00 Gram Stain - Final Complete Sputum Expectorated Sputum 03/25/17 17:00 Sputum Culture - Final Complete Acinetobacter Baumannii/Haemol 03/25/17 17:00 Received Other Pending 03/25/17 13:00 Urine Culture - Final Complete Urine Catheterized Urine NO GROWTH IN 48 HOURS. 03/25/17 11:54 Aerobic Blood Culture - Preliminary Resulted Blood Peripheral NO GROWTH IN 4 DAYS 03/25/17 11:54 Anaerobic Blood Culture - Preliminary Resulted Blood Peripheral NO GROWTH IN 4 DAYS Imaging Last Impressions Chest X-Ray 03/29/17 0600 Signed Impressions: Service Date/Time: Wednesday, March 29, 2017 05:09 - CONCLUSION: No significant change bibasilar consolidation and small effusions. Casper Clifton MD Head Magnetic Resonance Angiography 03/28/17 0000 Signed Impressions: Service Date/Time: March 17:22 - CONCLUSION: Unremarkable examination. Bety Castillo MD Brain MRI 03/28/17 0000 Signed Impressions: Service Date/Time: March 17:22 - CONCLUSION: 1. 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 Small subacute ischemic bilateral thalamic infarcts. 2. There has been no significant change when compared to the prior exam. Yinka Harman MD Lower Extremity Ultrasound 03/25/17 0000 Signed Impressions: Service Date/Time: Saturday, March 25, 2017 22:17 - CONCLUSION: No evidence of DVT. Víctor Rosas MD CT Angiography 03/21/17 0000 Signed Impressions: Service Date/Time: March 00:33 - CONCLUSION: No evidence of pulmonary embolism is identified. Mild atelectasis left lung base. Fluid or phlegm within the trachea. Milo Muhammad MD Abdomen X-Ray 03/20/17 0000 Signed Impressions: Service Date/Time: Monday, March 20, 2017 18:12 - CONCLUSION: Tip of the Dobbhoff tube projecting towards the pylorus. Cheo Barrera Jr., MD Abdomen Ultrasound 03/20/17 0000 Signed Impressions: Service Date/Time: Monday, March 20, 2017 11:38 - CONCLUSION: 1. Hepatosplenomegaly without focal lesion. 2. Probable sludge within the lumen of the gallbladder. No intrahepatic duct. Cheo Martínez MD Shoulder X-Ray 03/02/17 1404 Signed Impressions: Service Date/Time: Thursday, March 02, 2017 15:18 - CONCLUSION: No evidence of recent bony injury. Deformity of the lateral left clavicle suggests old healed trauma. Cheo Martínez MD Maxillofacial CT 03/02/17 1342 Signed Impressions: Service Date/Time: Thursday, March 02, 2017 14:52 - CONCLUSION: Negative CT of the facial bones. Cheo Martínez MD Head CT 03/02/17 1342 Signed Impressions: Service Date/Time: Thursday, March 02, 2017 14:52 - CONCLUSION: 1. Prominent scalp swelling left frontal and parietal region. No skull fracture seen. 2. Intracranial contents are intact without acute finding. Cheo Martínez MD Chest CT 03/02/17 1342 Signed Impressions: Service Date/Time: Thursday, March 02, 2017 15:04 - CONCLUSION: 1. Abnormal appearance of the lateral left clavicle suggesting a combination of acute and chronic bony injury. Fracture lucencies without bridging callus is seen the region of the coracoid process. 2. The lungs are clear. No evidence of pneumothorax. 3. Moderate size hiatus hernia. Cheo Martínez MD Cervical Spine CT 03/02/17 1342 Signed Impressions: Service Date/Time: Thursday, March 02, 2017 14:52 - CONCLUSION: Negative CT cervical spine. Cheo Martínez MD Abdomen/Pelvis CT 03/02/17 1342 Signed Impressions: Service Date/Time: Thursday, March 02, 2017 15:04 - CONCLUSION: Moderate size hiatus hernia. Scattered small sigmoid diverticula. Otherwise negative exam. Cheo Martínez MD Objective Remarks GENERAL: 61-year-old male, critically ill currently resting in bed orotracheally intubated HEENT: Healing abrasion left side scalp. TIMOTHY. Scleral icterus. Oropharynx with old dried secretions NECK: No JVD/thyromegaly/lymph adenopathy. Trachea Midline CHEST: Coarse crackles appreciated throughout all lung beckett. Few wheezes. CARDIOVASCULAR: Tachycardia, RR. S1, S2. No S4. Without murmur ABDOMEN: Slightly distended/protuberant. Soft. Vague diffuse tenderness. Voluntary guarding. No rigidity. Hypoactive bowel sounds. MUSCULOSKELETAL: Posterior tibialis 2+ palpable. NEUROLOGICAL: Currently positive corneal reflex. Positive gag. Doesn't withdrawal to pain. up toes. Prior was opening eyes and moaning. Not following commands. Voluntary withdrawal to pain. Date of Insertion: Mar 25, 2017 Line: Central Venous Catheter Side: Left Location: Internal A/P Assessment and Plan Neuro/Psych: Osmotic demyelination syndrome Acute toxic metabolic encephalopathy secondary to hypercarbic respiratory failure Alcohol dependence History of EtOH induced seizure withdrawal Chronic benzodiazepine use Currently on Versed 5 mg/h/fentanyl 100 mcg an hour drips for sedation/ analgesia while intubated Nimbex drip discontinue 03/27 Goal of RA SS -2 MRI 03/21 - T1/T2 prolonged with sparing of this central appears final fibers. 2 small spots in the posterior central spinal tract consistent with Osmotic demyelination syndrome. ODS most likely from rapid correction of Na, with underlying alcoholism MRI brain 03/28 revealed subacute bilateral thalamic lacunar infarcts, CPM. CT head 03/05 revealed no acute intracranial findings Continue thiamine/folate and multivitamin. Seen by neurology/Dr. Mazariegos. No further recommendations at this time. Respiratory: Acute hypoxemic hypercapnic respiratory failure [facility]/1.[facility]/14/40 Ventilator bundle Bronchodilator therapy every 4 hours and as needed 3% hypertonic saline 4 hours for secretions Chest x-ray reveals right lower lobe infiltrate versus effusion Patient likely aspirated. We'll monitor closely for further aspiration Continue feeding via Dobbhoff tube as tolerated Cardiovascular: Chronic Systolic heart failure Lactic acidosis Echocardiogram 03/04 revealed EF 35-40%. Mild mR. Left atrium dilated. JANE 33 mmHg TSH within normal limits 0.8 Kiran-Synephrine at 30 mcg/m. Titrate off as clinically indicated Renal: Acute Kidney Injury- Rhabdomyolysis- resolved ODS-see neuro Accurate I's and O's Monitor urine output closely. Adequate past 24 hours Follow BMP in a.m. Currently on free water 200 every 4 One half normal saline at 84 cc an hour with poor oral intake. Try to keep sodium less than 145 GI: Likely EtOH cirrhosis Hyperammonemia Hiatal hernia Sigmoid diverticulosis History of umbilical hernia repair Placed on Xifaxan 550 twice a day/lactulose 30 twice a day. Recheck ammonia currently 23 LFT is elevated. Ultrasound liver-hepatosplenomegaly. Sludge in gallbladder Patient on Prilosec 20 mg by mouth daily at home. Currently in IV Protonix Continue tube feeds with Jevity 1.5 goal 60 cc an hour. Currently 10 cc an hour Start Reglan 5 every8 hours/prokinetic agent. Check KUB in a.m. with tube feeding intolerance Heme: Macrocytic anemia Possibly leukemoid/stress versus aspiration Hemoglobin currently around 8. Post units 2 PRBCs overnight 03/27 Monitor CBC daily. Follow trends B12 1452, Folate 15.2. TSH 0.8. ID: Likely aspiration pneumonia Escherichia coli UTI 03/11 - completed therapy Stenotrophomonas pneumonia Pertinent cultures 03/29 - blood cultures 2 - 03/25 - sputum --Stenotrophomonas 03/25 - urine - pending 03/25 - blood cultures 2 -no growth 03/22 - urine - no growth 03/22 - blood cultures 2 - negative 03/20 - blood cultures 2 - no growth 03/11 - urine - Escherichia coli 03/02 - blood cultures 2 - no growth Followed by Dr. Lisa/ID. previously on cefepime/Flagyl. On 03/25 switched to Zyvox day #5, Merrem day #5 (discontinued today 03/29 ) and Flagyl day number 10?. I ordered Unasyn on 03/28. Continue day #2 yesterday. Endocrine: Hyperglycemia of critical illness History of hypothyroidism SSI with Accu-Cheks every 4 hours to maintain euglycemia FEN: Hyperkalemia Hypophosphatemia - resolved Replace electrolytes as clinically indicated MSK: History of old left clavicle fracture PT/OT evaluate and treat Access Left IJ TLC day 5 placed 03/25 Prophylaxis: GI - Protonix DVT - SCD/heparin subcutaneous Critical Care: The total critical care time was 35 minutes. Time to perform other separately billable procedures was not included in the critical care time. Tamanna Sandhu, daughter/ HCP: from [facility] [phone] now confirmed transferred to [facility] in [facility] ([phone]) this week Discussed with his [id number] Joanna Sandhu. Patient has 1 brother in close contact/also an alcoholic and 2 sisters whom he does not keep contact with. If daughter unwilling to make further medical decisions would fall back to 1 brother who likely would withdrawal care. [id number] Joanna will leave phone numbers of brother and 2 sisters with David Roche/Larry Hercules MD Mar 29, 2017 19:39
[2017-03-29] MEDS ORDERED: METHYLNALTREXONE BROMIDE 12 MG/0.6 ML VIAL SQ ONE (19:45)
[2017-03-29] MEDS: fentaNYL DRIP 250 ML IV SCH (22:11)
[2017-03-30] VITALS (19 sets, daily range): BP systolic 77–101; BP diastolic 51–65; PULSE 83–93; RESP 18–24; TEMP 98–100.4; O2SAT 94–100
[2017-03-30] MEDS: RESP: ALBUTEROL 2.5 MG/IPRATROPIUM 0.5 MG NEB (SCH) NEB ×7 (00:03→23:12)
[2017-03-30] MEDS: RESP: SODIUM CHLORIDE 3% 4 ML NEB NEB SCH ×7 (00:03→23:13)
--- NOTE | 2017-03-30 03:04 | RADRPT ---
EXAM DATE/TIME: 03/30/2017 01:30 [facility] COMPARISON: No previous studies available for comparison. INDICATIONS : Shortness of breath, possible pulmonary disease. MEDICAL HISTORY : Liver Disease. SURGICAL HISTORY : None. ENCOUNTER: Subsequent ACUITY: 1 month PAIN SCORE: Non-responsive. LOCATION: Bilateral chest FINDINGS: Bilateral infiltrates, primarily mid and lower lungs again noted. Accounting for differences in techn ique I don't see a definite change. Infiltrates or right worse on left. Small, bilateral pleural effu sions are present, also probably not significantly changed. I don't see a pneumothorax. Patient remains intubated. Endotracheal tube tip is about 4 cm above the joanie, unchanged. There is a left internal jugular central venous catheter with tip in the superior vena cava, also unchanged. CONCLUSION: No significant change. Bilateral infiltrates and small pleural effusions persist. Casper Clifton MD on March 30, 2017 at 3:01 Board Certified Radiologist. This report was verified electronically.
--- NOTE | 2017-03-30 03:05 | RADRPT ---
EXAM DATE/TIME: 03/30/2017 01:32 [facility] COMPARISON: No previous studies available for comparison. INDICATIONS : Abdominal pain. MEDICAL HISTORY : None. SURGICAL HISTORY : None. ENCOUNTER: Subsequent ACUITY: 1 month PAIN SCORE: Non-responsive. LOCATION: Bilateral Abdomen FINDINGS: No bowel distention demonstrated. No evidence of free air. Dobbhoff feeding tube is more distal, tip now in the third portion of the duodenum. CONCLUSION: Nonobstructive bowel gas pattern. Dobbhoff feeding tube tip at the level of the third portion of the duodenum. Casper Clifton MD on March 30, 2017 at 3:03 Board Certified Radiologist. This report was verified electronically.
[2017-03-30 03:43] LABS: AUTOMATED NEUTROPHIL # 7.2 TH/MM3 (1.8-7.7); BASOPHIL % 0.5 % (0.0-2.0); EOSINOPHIL # 0.1 TH/MM3 (0-0.4); EOSINOPHIL % 1.3 % (0.0-4.0); LYMPH % 9.9 % (9.0-44.0); LYMPHOCYTE # 0.8 TH/MM3 (1.0-4.8); MEAN CELL VOLUME 104.6 FL (80.0-100.0); MEAN CORPUSCULAR HEMOGLOBIN 35.8 PG (27.0-34.0); MEAN CORPUSCULAR HGB CONC 34.2 % (32.0-36.0); MONO % 4.1 % (0.0-8.0); NEUT % 84.2 % (16.0-70.0); PLATELET COUNT 166 TH/MM3 (150-450); RED BLOOD COUNT 2.58 MIL/MM3 (4.50-5.90); RED CELL DISTRIBUTION WIDTH 16.4 % (11.6-17.2); WHITE BLOOD COUNT 8.5 TH/MM3 (4.0-11.0)
[2017-03-30 03:56] LABS: HEMO FLAGS AUTO DIFF
[2017-03-30] MEDS: INSULIN NovoLIN REGULAR SUPPLEMENTAL SCALE SQ SCH ×5 (03:57→20:00)
[2017-03-30 04:00] LABS: APTT (PATIENT) 42.3 SEC (24.3-30.1); INTERNATIONAL NORMALIZED RATIO 1.5 RATIO
[2017-03-30 04:21] LABS: ALKALINE PHOSPHATASE 79 U/L (45-117); ALT (GPT) 23 U/L (12-78); ANION GAP 11 MEQ/L (5-15); AST (GOT) 70 U/L (15-37); BICARBONATE 19.2 MEQ/L (21.0-32.0); BLOOD UREA NITROGEN 20 MG/DL (7-18); CHLORIDE 106 MEQ/L (98-107); CREATINE KINASE 67 U/L (39-308); GLOMERULAR FILTRATION RATE 94 ML/MIN (>89); MAGNESIUM 1.7 MG/DL (1.5-2.5); POTASSIUM 3.9 MEQ/L (3.5-5.1); SODIUM (NA) 136 MEQ/L (136-145); TOTAL BILIRUBIN ADULT 2.1 MG/DL (0.2-1.0)
[2017-03-30 04:56] LABS: SCAN/DIFF AUTO DIFF CONFIRMED
[2017-03-30] MEDS: FREE WATER NG SCH ×2 (06:00→12:00)
[2017-03-30] MEDS: AMPICILLIN-SULBACTAM INJ 3 GM in SODIUM CHLORIDE 0.9% INJ 100 ML IV SCH ×4 (07:10→23:06)
[2017-03-30] MEDS: METOCLOPRAMIDE HCL 10 MG/2 ML VIAL IV PUSH SCH ×3 (07:10→20:42)
[2017-03-30] MEDS: metroNIDAZOLE 500 MG TAB PO SCH ×3 (07:10→20:43)
[2017-03-30] MEDS: HEPARIN SODIUM - SQ 10,000 UNITS/ML VIAL SQ SCH ×3 (07:11→20:42)
[2017-03-30] MEDS: PHENYLEPHRINE INJ 40 MG in DEXTROSE 5% IN WATE 500 ML INJ 496 ML IV SCH ×2 (07:11)
[2017-03-30] MEDS: THIAMINE INJ 100 MG in SODIUM CHLORIDE 0.9% INJ 100 ML IV SCH (08:27)
[2017-03-30] MEDS: SODIUM CHLORIDE 0.9% FLUSH 10 ML FLUSH IV FLUSH SCH ×2 (08:27→20:44)
[2017-03-30] MEDS: DOCUSATE SODIUM 100 MG CAP PO SCH ×2 (08:27→20:43)
[2017-03-30] MEDS: LACTOBACILLUS ACIDOPHILUS TAB PO SCH ×3 (08:27→17:11)
[2017-03-30] MEDS: LACTULOSE SYRUP 20 GM/30 ML CUP PO SCH ×2 (08:27→20:43)
[2017-03-30] MEDS: SODIUM CHLORIDE 0.9% FLUSH 10 ML FLUSH IVF SCH (08:27)
[2017-03-30] MEDS: PANTOPRAZOLE SODIUM 40 MG VIAL IV SCH (08:27)
[2017-03-30] MEDS: RIFAXIMIN 550 MG TAB PO SCH ×2 (08:27→20:43)
[2017-03-30] MEDS: MUPIROCIN 2% OINT 1 APPLIC/GM SYR EACH NARE SCH ×2 (08:53→20:43)
[2017-03-30] MEDS: ACETAMINOPHEN 325 MG TAB PO PRN (08:53)
[2017-03-30] MEDS: CHLORHEXIDINE 0.12% (ORAL KIT) 15 ML CUP MT SCH ×2 (08:53→20:43)
[2017-03-30] MEDS: ARTIFICIAL TEARS OPTH SOLN 15 ML BTL EACH EYE SCH ×3 (09:00→17:10)
[2017-03-30] MEDS: SODIUM CHLOR 0.45% 1000 ML INJ 1,000 ML IV SCH (10:12)
[2017-03-30] MEDS: MIDAZOLAM 100 MG/ML INJ 100 ML IV SCH (10:13)
[2017-03-30] MEDS: fentaNYL DRIP 250 ML IV SCH (13:18)
--- NOTE | 2017-03-30 16:43 | HHI.CCPN ---
Subjective Remarks/Hospital Course This is a 61-year-old male with a past history of alcohol abuse and a prior admission in 2015 for severe life-threatening hyponatremia at that time with a serum sodium of 98. He presents today with what he states is a 13 day history of worsening fatigue and weakness. He is very altered and is very difficult to understand the patient. What I can understand from him, is that at some point during these 13 days he has fallen and hit his face. Otherwise he states he lays on the couch, and has not gotten not much. He states he drinks 1 beer in the morning, and 1 beer in the afternoon. He does endorse taking some Xanax to help him sleep. He denies other drug use. He denies chest pain, shortness of breath, fever, chills, nausea, vomiting, abdominal pain. It is very difficult to get him to answer anymore questions about his medical history. His speech is very slurred and he is trying to talk about how he misses his daughter. Emergency department he was found to have a serum sodium of 99, a bilirubin of 8.9, lactate of 9.8, ammonia of 60, CK of 7000, elevated troponin of 4.9 with a normal MB ratio, creatinine 1.5, serum bicarbonate of 13. His white count is 12 , platelets 112. INR 1.9. His MELD calculates at 26. 4/2: Sodium level rapidly corrected overnight, likely secondary to appropriate correction of severe life-threatening dehydration. NS fluids changed to 1/2NS and correction slowed down significantly. sodium up to 130 this AM. CK downtrending. however, patient remains severely hypotensive requiring Levophed to maintain a map > 65 mmHg. This AM, serum K 1.6 (confirmed). started replacement with 200meq KCl and recheck K. 03/04: persists in vasoplegic distributive shock. afebrile. no evidence of infection. wbc downtrending. persists with severe life-threatening electrolyte derangements. passed swallow eval for nectar thick liquids. sodium stable at 131. ck downtrending. 03/05: persists in distributive shock. echo yesterday with EF 30%, globally decreased function. milrinone added yesterday with improvement in vasopressor requirement. still with multiple electrolyte abnormalities despite very aggressive replacement. very poor appetite. sodium stable at 131, which appears to be around baseline for him, looking back at prior records. also became agitated and delirious yesterday, likely secondary to etoh withdraw. started on Ativan and Librium. 03/06: electrolyte derangements persist. placed on continuous NaPhos infusion x 24h due to severe life-threatening hypophosphatemia. serial K, phos checks. weaning off levophed, milrinone persists. still poor appetite. sodium jumped from 132 to 139, but no significant mental status change, and we did not increase sodium load. 03/07: still requiring high electrolyte replacement. milrinone weaned to 0.375 mcg /kg/min overnight. still doing well with that. delirium persists. 03/08 Remains on milrinone. Electrolyte improving. Remains very lethargic, intermittently follows commands 03/09: Continues to be lethargic but wakes up follows some commands. Remains on milrinone will DC today. T max 100.1, urine output adequate sodium is 143 03/10: More awake alert, ate 50% of break fast. Will DC Dobhoff. Discontinue arterial and central lines. Delirium also improved, remains weak 03/11: doing much better this morning. no complaints. still with poor appetite. electrolytes improved. 03/20: We consulted for respiratory failure. Patient was last seen in room 1415 CMP receiving oral cares and became acutely hypoxic saturations 82% with coarse breath sounds. Halicat called. Patient was placed on a Venturi mask 50 % with desaturations to the mid 90s. He received Solu-Medrol 20 mg IV 1, Lasix 40 mg IV 1 and was transferred IM [facility] 521. Hemodynamically stable. Poor mentation 03/25: Reconsulted due to respiratory failure. Patient with gurgling/ transmitted upper airway sounds. Respiration the 50s. Decision made to orotracheally intubate. Noted to have been febrile with increased O2 course over the past 48 hours. 03/26: Afebrile. Requiring Nimbex drip for ventilator synchrony. Decreased urine output noted. Hemoglobin decreased likely dilutional. Tolerating tube feeding. Electrolytes been replaced. 03/27: Tmax 100.9. Currently 97.2. +6 L past 24 hours. Hemoglobin 8 transfuse overnight. Potassium 3. We'll discontinue Nimbex drip for vent synchrony today. 03/28: Afebrile. Negative fluid balance past 24 hours. Hemoglobin currently 9. Potassium 3.0. Currently on sedation vacation positive gag and otherwise unresponsive. 03/29: Tmax 103. Currently afebrile. Not tolerating tube feeds. Remains on Kiran-Synephrine. Did not tolerate sedation vacation back on Versed at 5 mg an hour fentanyl drip at 100 mg an hour. One bowel movement. Subjective: 03/30 Tube feeds remain on hold. On neosynephrine 240 mcg/min, RN states she has been weaning. Having BMs Objective Vital Signs Date Time Temp Pulse Resp B/P Pulse Ox O2 Delivery O2 Flow Rate FiO2 03/30/17 16:00 84 03/30/17 15:49 98 35 03/30/17 12:00 98.8 18 93/65 03/30/17 12:00 Mechanical Ventilator 03/27/17 04:00 15.00 Intake and Output 03/29/17 03/29/17 03/30/17 08:00 16:00 00:00 Intake Total 1060 ml 1672 ml 1475 ml Output Total 350 ml 375 ml 750 ml Balance 710 ml 1297 ml 725 ml Result Diagram: 03/30/17 0325 03/30/17 0325 Imaging Last Impressions Chest X-Ray 03/29/17 0600 Signed Impressions: Service Date/Time: Wednesday, March 29, 2017 05:09 - CONCLUSION: No significant change bibasilar consolidation and small effusions. Casper Clifton MD Head Magnetic Resonance Angiography 03/28/17 0000 Signed Impressions: Service Date/Time: March 17:22 - CONCLUSION: Unremarkable examination. Bety Castillo MD Brain MRI 03/28/17 0000 Signed Impressions: Service Date/Time: March 17:22 - CONCLUSION: 1. 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 Small subacute ischemic bilateral thalamic infarcts. 2. There has been no significant change when compared to the prior exam. Yinka Harman MD Lower Extremity Ultrasound 03/25/17 0000 Signed Impressions: Service Date/Time: Saturday, March 25, 2017 22:17 - CONCLUSION: No evidence of DVT. Víctor Rosas MD CT Angiography 03/21/17 0000 Signed Impressions: Service Date/Time: March 00:33 - CONCLUSION: No evidence of pulmonary embolism is identified. Mild atelectasis left lung base. Fluid or phlegm within the trachea. Milo Muhammad MD Abdomen X-Ray 03/20/17 0000 Signed Impressions: Service Date/Time: Monday, March 20, 2017 18:12 - CONCLUSION: Tip of the Dobbhoff tube projecting towards the pylorus. Cheo Barrera Jr., MD Abdomen Ultrasound 03/20/17 0000 Signed Impressions: Service Date/Time: Monday, March 20, 2017 11:38 - CONCLUSION: 1. Hepatosplenomegaly without focal lesion. 2. Probable sludge within the lumen of the gallbladder. No intrahepatic duct. Cheo Martínez MD Shoulder X-Ray 03/02/17 1404 Signed Impressions: Service Date/Time: Thursday, March 02, 2017 15:18 - CONCLUSION: No evidence of recent bony injury. Deformity of the lateral left clavicle suggests old healed trauma. Cheo Martínez MD Maxillofacial CT 03/02/17 1342 Signed Impressions: Service Date/Time: Thursday, March 02, 2017 14:52 - CONCLUSION: Negative CT of the facial bones. Cheo Martínez MD Head CT 03/02/17 134 Signed Impressions: Service Date/Time: Thursday, March 02, 2017 14:52 - CONCLUSION: 1. Prominent scalp swelling left frontal and parietal region. No skull fracture seen. 2. Intracranial contents are intact without acute finding. Cheo Martínez MD Chest CT 03/02/17 1342 Signed Impressions: Service Date/Time: Thursday, March 02, 2017 15:04 - CONCLUSION: 1. Abnormal appearance of the lateral left clavicle suggesting a combination of acute and chronic bony injury. Fracture lucencies without bridging callus is seen the region of the coracoid process. 2. The lungs are clear. No evidence of pneumothorax. 3. Moderate size hiatus hernia. Cheo Martínez MD Cervical Spine CT 03/02/17 1342 Signed Impressions: Service Date/Time: Thursday, March 02, 2017 14:52 - CONCLUSION: Negative CT cervical spine. Cheo Martínez MD Abdomen/Pelvis CT 03/02/17 1342 Signed Impressions: Service Date/Time: Thursday, March 02, 2017 15:04 - CONCLUSION: Moderate size hiatus hernia. Scattered small sigmoid diverticula. Otherwise negative exam. Cheo Martínez MD Objective Remarks GENERAL: 61-year-old male, critically ill, orotracheally intubated. HEENT: Healing abrasion left side scalp. TIMOTHY. Scleral icterus. Oropharynx with old dried secretions NECK: No JVD/thyromegaly/lymph adenopathy. Trachea Midline CHEST: Coarse crackles appreciated throughout all lung beckett. Few wheezes. CARDIOVASCULAR: Tachycardia, RR. S1, S2. No S4. Without murmur ABDOMEN: Slightly distended/protuberant. Soft. Vague diffuse tenderness. No rigidity. Hypoactive bowel sounds. MUSCULOSKELETAL: Posterior tibialis 2+ palpable. NEUROLOGICAL: Positive gag. No response to deep noxious stimuli. Date of Insertion: Mar 25, 2017 Line: Central Venous Catheter Side: Left Location: Internal A/P Assessment and Plan Neuro/Psych: Osmotic demyelination syndrome Acute toxic metabolic encephalopathy secondary to hypercarbic respiratory failure Alcohol dependence History of EtOH induced seizure withdrawal Chronic benzodiazepine use Currently on Versed 5 mg/h (previously on 8 mg/hr, will wean off. )/fentanyl 100 mcg an hour drips for sedation/analgesia while intubated Nimbex drip discontinue 03/27 Goal of RASS -2 MRI 03/21 - T1/T2 prolonged with sparing of this central appears final fibers. 2 small spots in the posterior central spinal tract consistent with Osmotic demyelination syndrome. ODS most likely from rapid correction of Na, with underlying alcoholism MRI brain 03/28 revealed subacute bilateral thalamic lacunar infarcts, CPM. CT head 03/05 revealed no acute intracranial findings Continue thiamine/folate and multivitamin. Seen by neurology/Dr. Mazariegos. No further recommendations at this time. Respiratory: Acute hypoxemic hypercapnic respiratory failure PRVC 16/550/1.02/14/40 Ventilator bundle Bronchodilator therapy every 4 hours and as needed 3% hypertonic saline q 4 hours for secretions Chest x-ray reveals right lower lobe infiltrate versus effusion Patient likely aspirated. We'll monitor closely for further aspiration Cardiovascular: Chronic Systolic heart failure Lactic acidosis Echocardiogram 03/04 revealed EF 35-40%. Mild mR. Left atrium dilated. JANE 33 mmHg TSH within normal limits 0.8 Kiran-Synephrine at 240 mcg/m. Titrate off as clinically indicated Renal: Acute Kidney Injury- Rhabdomyolysis- resolved ODS-see neuro Accurate I's and O's Monitor urine output closely. Adequate past 24 hours Follow BMP in a.m. On free water 200 every 6 hours, will d/c. Change to D5 1/2 NS @ 84 ml/hr. GI: Likely EtOH cirrhosis Hyperammonemia Hiatal hernia Sigmoid diverticulosis History of umbilical hernia repair Placed on Xifaxan 550 twice a day/lactulose 30 twice a day. Recheck ammonia currently 23 LFT is elevated. Ultrasound liver-hepatosplenomegaly. Sludge in gallbladder Patient on Prilosec 20 mg by mouth daily at home. Currently in IV Protonix Continue tube feeds with Jevity 1.5 goal 60 cc an hour, have been off due to emesis. HAving BMs s/p Relistor 03/29. Resume trickle feeds via Dobhoff. Increase Reglan 10 every8 hours/prokinetic agent. Heme: Macrocytic anemia Possibly leukemoid/stress versus aspiration Hemoglobin currently around 8. Post units 2 PRBCs overnight 03/27 Monitor CBC daily. Follow trends B12 1452, Folate 15.2. TSH 0.8. ID: Likely aspiration pneumonia Escherichia coli UTI 03/11 - completed therapy Acinetobacter pneumonia Pertinent cultures 03/29 - blood cultures 2 - 03/25 - sputum --Acinetobacter. 03/25 - urine - pending 03/25 - blood cultures 2 -no growth 03/22 - urine - no growth 03/22 - blood cultures 2 - negative 03/20 - blood cultures 2 - no growth 03/11 - urine - Escherichia coli 03/02 - blood cultures 2 - no growth Followed by Dr. Lisa/ID. previously on cefepime/Flagyl. On 03/25 switched to Zyvox day #5, Merrem day #5 (discontinued 03/29 ) and Flagyl 03/24 #7. On unasyn since 03/28. sputum culture from 03/25 postive for acinetobacter, sensitive to unasyn. Endocrine: Hyperglycemia of critical illness History of hypothyroidism SSI with Accu-Cheks every 4 hours to maintain euglycemia FEN: Hyperkalemia Hypophosphatemia - resolved Replace electrolytes as clinically indicated MSK: History of old left clavicle fracture PT/OT evaluate and treat Access Left IJ TLC placed 03/25 #6 Prophylaxis: GI - Protonix DVT - SCD/heparin subcutaneous Critical Care: The total critical care time was 35 minutes. Time to perform other separately billable procedures was not included in the critical care time. Palliative care medicine following. Code status - DNR. Tamanna Sandhu, daughter/ HCP: from [facility] [phone] now confirmed transferred to [facility] in [facility] ([phone]) this week Dr. Ruby Discussed with his [id number] Joanna Sandhu. Patient has 1 brother in close contact/also an alcoholic and 2 sisters whom he does not keep contact with. If daughter unwilling to make further medical decisions would fall back to 1 brother who likely would withdrawal care. [id number] Joanna will leave phone numbers of brother and 2 sisters with David Roche/Amanda Willoughby MD Mar 30, 2017 16:43
[2017-03-30] MEDS: DEXT 5%-NACL 0.45% 1000 ML INJ 1,000 ML IV SCH (16:50)
[2017-03-31] VITALS (17 sets, daily range): BP systolic 88–105; BP diastolic 59–71; PULSE 76–97; RESP 18–22; TEMP 97.6–100; O2SAT 96–100
[2017-03-31] MEDS: RESP: ALBUTEROL 2.5 MG/IPRATROPIUM 0.5 MG NEB (SCH) NEB ×6 (03:20→22:00)
[2017-03-31] MEDS: RESP: SODIUM CHLORIDE 3% 4 ML NEB NEB SCH ×5 (03:20→20:38)
[2017-03-31] MEDS: fentaNYL DRIP 250 ML IV SCH (03:47)
[2017-03-31] MEDS: DEXT 5%-NACL 0.45% 1000 ML INJ 1,000 ML IV SCH ×2 (03:47→17:16)
[2017-03-31] MEDS: INSULIN NovoLIN REGULAR SUPPLEMENTAL SCALE SQ SCH ×7 (03:59→23:49)
[2017-03-31] MEDS: AMPICILLIN-SULBACTAM INJ 3 GM in SODIUM CHLORIDE 0.9% INJ 100 ML IV SCH ×4 (04:47→22:46)
[2017-03-31] MEDS: METOCLOPRAMIDE HCL 10 MG/2 ML VIAL IV PUSH SCH ×4 (04:49→22:32)
[2017-03-31] MEDS: HEPARIN SODIUM - SQ 10,000 UNITS/ML VIAL SQ SCH ×3 (04:49→20:54)
[2017-03-31] MEDS: metroNIDAZOLE 500 MG TAB PO SCH ×3 (04:50→20:53)
[2017-03-31 05:57] LABS: AUTOMATED NEUTROPHIL # 6.4 TH/MM3 (1.8-7.7); BASOPHIL % 0.5 % (0.0-2.0); EOSINOPHIL # 0.1 TH/MM3 (0-0.4); EOSINOPHIL % 1.3 % (0.0-4.0); HEMATOCRIT 26.5 % (39.0-51.0); HEMO FLAGS DIFF FINAL; LYMPH % 14.9 % (9.0-44.0); LYMPHOCYTE # 1.2 TH/MM3 (1.0-4.8); MEAN CELL VOLUME 101.6 FL (80.0-100.0); MEAN CORPUSCULAR HEMOGLOBIN 34.9 PG (27.0-34.0); MEAN CORPUSCULAR HGB CONC 34.3 % (32.0-36.0); MONO % 5.5 % (0.0-8.0); NEUT % 77.8 % (16.0-70.0); PLATELET COUNT 185 TH/MM3 (150-450); RED BLOOD COUNT 2.61 MIL/MM3 (4.50-5.90); RED CELL DISTRIBUTION WIDTH 15.8 % (11.6-17.2); WHITE BLOOD COUNT 8.3 TH/MM3 (4.0-11.0)
[2017-03-31 06:11] LABS: ANION GAP 10 MEQ/L (5-15); AST (GOT) 100 U/L (15-37); BICARBONATE 19.9 MEQ/L (21.0-32.0); BLOOD UREA NITROGEN 18 MG/DL (7-18); CHLORIDE 105 MEQ/L (98-107); GLOMERULAR FILTRATION RATE 84 ML/MIN (>89); POTASSIUM 3.6 MEQ/L (3.5-5.1); SODIUM (NA) 135 MEQ/L (136-145)
[2017-03-31 06:15] LABS: ALKALINE PHOSPHATASE 110 U/L (45-117); ALT (GPT) 22 U/L (12-78); TOTAL BILIRUBIN ADULT 1.9 MG/DL (0.2-1.0)
[2017-03-31] MEDS: PHENYLEPHRINE INJ 40 MG in DEXTROSE 5% IN WATE 500 ML INJ 496 ML IV SCH ×4 (06:41→21:38)
[2017-03-31] MEDS: CHLORHEXIDINE 0.12% (ORAL KIT) 15 ML CUP MT SCH ×2 (08:04→20:52)
[2017-03-31] MEDS: ARTIFICIAL TEARS OPTH SOLN 15 ML BTL EACH EYE SCH ×3 (08:05→17:16)
[2017-03-31] MEDS: MUPIROCIN 2% OINT 1 APPLIC/GM SYR EACH NARE SCH ×2 (08:05→20:53)
[2017-03-31] MEDS: LACTOBACILLUS ACIDOPHILUS TAB PO SCH ×3 (08:06→17:16)
[2017-03-31] MEDS: THIAMINE INJ 100 MG in SODIUM CHLORIDE 0.9% INJ 100 ML IV SCH (08:06)
[2017-03-31] MEDS: SODIUM CHLORIDE 0.9% FLUSH 10 ML FLUSH IVF SCH (08:06)
[2017-03-31] MEDS: SODIUM CHLORIDE 0.9% FLUSH 10 ML FLUSH IV FLUSH SCH ×2 (08:06→20:53)
[2017-03-31] MEDS: RIFAXIMIN 550 MG TAB PO SCH ×2 (08:06→20:54)
[2017-03-31] MEDS: DOCUSATE SODIUM 100 MG CAP PO SCH ×2 (08:06→20:53)
[2017-03-31] MEDS: LACTULOSE SYRUP 20 GM/30 ML CUP PO SCH ×2 (08:06→20:53)
[2017-03-31] MEDS: PANTOPRAZOLE SODIUM 40 MG VIAL IV SCH (08:06)
--- NOTE | 2017-03-31 19:55 | HHI.CCPN ---
Subjective Remarks/Hospital Course This is a 61-year-old male with a past history of alcohol abuse and a prior admission in 2015 for severe life-threatening hyponatremia at that time with a serum sodium of 98. He presents today with what he states is a 13 day history of worsening fatigue and weakness. He is very altered and is very difficult to understand the patient. What I can understand from him, is that at some point during these 13 days he has fallen and hit his face. Otherwise he states he lays on the couch, and has not gotten not much. He states he drinks 1 beer in the morning, and 1 beer in the afternoon. He does endorse taking some Xanax to help him sleep. He denies other drug use. He denies chest pain, shortness of breath, fever, chills, nausea, vomiting, abdominal pain. It is very difficult to get him to answer anymore questions about his medical history. His speech is very slurred and he is trying to talk about how he misses his daughter. Emergency department he was found to have a serum sodium of 99, a bilirubin of 8.9, lactate of 9.8, ammonia of 60, CK of 7000, elevated troponin of 4.9 with a normal MB ratio, creatinine 1.5, serum bicarbonate of 13. His white count is 12 , platelets 112. INR 1.9. His MELD calculates at 26. 4/2: Sodium level rapidly corrected overnight, likely secondary to appropriate correction of severe life-threatening dehydration. NS fluids changed to 1/2NS and correction slowed down significantly. sodium up to 130 this AM. CK downtrending. however, patient remains severely hypotensive requiring Levophed to maintain a map > 65 mmHg. This AM, serum K 1.6 (confirmed). started replacement with 200meq KCl and recheck K. 03/04: persists in vasoplegic distributive shock. afebrile. no evidence of infection. wbc downtrending. persists with severe life-threatening electrolyte derangements. passed swallow eval for nectar thick liquids. sodium stable at 131. ck downtrending. 03/05: persists in distributive shock. echo yesterday with EF 30%, globally decreased function. milrinone added yesterday with improvement in vasopressor requirement. still with multiple electrolyte abnormalities despite very aggressive replacement. very poor appetite. sodium stable at 131, which appears to be around baseline for him, looking back at prior records. also became agitated and delirious yesterday, likely secondary to etoh withdraw. started on Ativan and Librium. 03/06: electrolyte derangements persist. placed on continuous NaPhos infusion x 24h due to severe life-threatening hypophosphatemia. serial K, phos checks. weaning off levophed, milrinone persists. still poor appetite. sodium jumped from 132 to 139, but no significant mental status change, and we did not increase sodium load. 03/07: still requiring high electrolyte replacement. milrinone weaned to 0.375 mcg /kg/min overnight. still doing well with that. delirium persists. 03/08 Remains on milrinone. Electrolyte improving. Remains very lethargic, intermittently follows commands 03/09: Continues to be lethargic but wakes up follows some commands. Remains on milrinone will DC today. T max 100.1, urine output adequate sodium is 143 03/10: More awake alert, ate 50% of break fast. Will DC Dobhoff. Discontinue arterial and central lines. Delirium also improved, remains weak 03/11: doing much better this morning. no complaints. still with poor appetite. electrolytes improved. 03/20: We consulted for respiratory failure. Patient was last seen in room 1415 CMP receiving oral cares and became acutely hypoxic saturations 82% with coarse breath sounds. Halicat called. Patient was placed on a Venturi mask 50 % with desaturations to the mid 90s. He received Solu-Medrol 20 mg IV 1, Lasix 40 mg IV 1 and was transferred IM [facility] 521. Hemodynamically stable. Poor mentation 03/25: Reconsulted due to respiratory failure. Patient with gurgling/ transmitted upper airway sounds. Respiration the 50s. Decision made to orotracheally intubate. Noted to have been febrile with increased O2 course over the past 48 hours. 03/26: Afebrile. Requiring Nimbex drip for ventilator synchrony. Decreased urine output noted. Hemoglobin decreased likely dilutional. Tolerating tube feeding. Electrolytes been replaced. 03/27: Tmax 100.9. Currently 97.2. +6 L past 24 hours. Hemoglobin 8 transfuse overnight. Potassium 3. We'll discontinue Nimbex drip for vent synchrony today. 03/28: Afebrile. Negative fluid balance past 24 hours. Hemoglobin currently 9. Potassium 3.0. Currently on sedation vacation positive gag and otherwise unresponsive. 03/29: Tmax 103. Currently afebrile. Not tolerating tube feeds. Remains on Kiran-Synephrine. Did not tolerate sedation vacation back on Versed at 5 mg an hour fentanyl drip at 100 mcg an hour. One bowel movement. 03/30 Tube feeds remain on hold. On neosynephrine 40 mcg/min, RN states she has been weaning. Having BMs. On Versed 8 mg/hr and fentanyl 100 mcg/hr. Subjective: 03/31 Off versed. Remains on fentanyl 100 mcg/hr. Having hiccups. Still on neosynephrine 40 mcg/min. Tolerating trickle feeds. Had 2 bowel movements Objective Vital Signs Date Time Temp Pulse Resp B/P Pulse Ox O2 Delivery O2 Flow Rate FiO2 03/31/17 18:00 90 03/31/17 16:00 100 Mechanical Ventilator 35 03/31/17 16:00 97.6 18 105/70 Intake and Output 03/30/17 03/30/17 03/31/17 08:00 16:00 00:00 Intake Total 1140 ml 1685 ml 1041 ml Output Total 450 ml 475 ml 500 ml Balance 690 ml 1210 ml 541 ml Result Diagram: 03/31/17 0424 03/31/17 0424 Imaging Last Impressions Chest X-Ray 03/29/17 0600 Signed Impressions: Service Date/Time: Wednesday, March 29, 2017 05:09 - CONCLUSION: No significant change bibasilar consolidation and small effusions. Casper Clifton MD Head Magnetic Resonance Angiography 03/28/17 0000 Signed Impressions: Service Date/Time: March 17:22 - CONCLUSION: Unremarkable examination. Bety Castillo MD Brain MRI 03/28/17 0000 Signed Impressions: Service Date/Time: March 17:22 - CONCLUSION: 1. 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 Small subacute ischemic bilateral thalamic infarcts. 2. There has been no significant change when compared to the prior exam. Yinka Harman MD Lower Extremity Ultrasound 03/25/17 0000 Signed Impressions: Service Date/Time: Saturday, March 25, 2017 22:17 - CONCLUSION: No evidence of DVT. Víctor Rosas MD CT Angiography 03/21/17 0000 Signed Impressions: Service Date/Time: March 00:33 - CONCLUSION: No evidence of pulmonary embolism is identified. Mild atelectasis left lung base. Fluid or phlegm within the trachea. Milo Muhammad MD Abdomen X-Ray 03/20/17 0000 Signed Impressions: Service Date/Time: Monday, March 20, 2017 18:12 - CONCLUSION: Tip of the Dobbhoff tube projecting towards the pylorus. Cheo Barrera Jr., MD Abdomen Ultrasound 03/20/17 0000 Signed Impressions: Service Date/Time: Monday, March 20, 2017 11:38 - CONCLUSION: 1. Hepatosplenomegaly without focal lesion. 2. Probable sludge within the lumen of the gallbladder. No intrahepatic duct. Cheo Martínez MD Shoulder X-Ray 03/02/17 1404 Signed Impressions: Service Date/Time: Thursday, March 02, 2017 15:18 - CONCLUSION: No evidence of recent bony injury. Deformity of the lateral left clavicle suggests old healed trauma. Cheo Martínez MD Maxillofacial CT 03/02/17 1342 Signed Impressions: Service Date/Time: Thursday, March 02, 2017 14:52 - CONCLUSION: Negative CT of the facial bones. Cheo Martínez MD Head CT 03/02/17 1342 Signed Impressions: Service Date/Time: Thursday, March 02, 2017 14:52 - CONCLUSION: 1. Prominent scalp swelling left frontal and parietal region. No skull fracture seen. 2. Intracranial contents are intact without acute finding. Cheo Martínez MD Chest CT 03/02/17 1342 Signed Impressions: Service Date/Time: Thursday, March 02, 2017 15:04 - CONCLUSION: 1. Abnormal appearance of the lateral left clavicle suggesting a combination of acute and chronic bony injury. Fracture lucencies without bridging callus is seen the region of the coracoid process. 2. The lungs are clear. No evidence of pneumothorax. 3. Moderate size hiatus hernia. Cheo Martínez MD Cervical Spine CT 03/02/17 1342 Signed Impressions: Service Date/Time: Thursday, March 02, 2017 14:52 - CONCLUSION: Negative CT cervical spine. Cheo Martínez MD Abdomen/Pelvis CT 03/02/17 1342 Signed Impressions: Service Date/Time: Thursday, March 02, 2017 15:04 - CONCLUSION: Moderate size hiatus hernia. Scattered small sigmoid diverticula. Otherwise negative exam. Cheo Martínez MD Objective Remarks Drips: Kiran-Synephrine 40 mcg/m Fentanyl 100 mg per hour D5 0.45 NaCl @ 84 mL per hour Jevity 1.5-10 mL per hour. GENERAL: 61-year-old chronically ill appearing male, currently critically ill, orotracheally intubated. HEENT: Healing abrasion left side scalp. TIMOTHY. Scleral icterus. Very poor dentition. NECK: Trachea Midline RESP: Coarse breath sounds bilaterally. Few wheezes. + Hiccups. CARDIOVASCULAR: Tachycardia, RR. S1, S2. No S4. Without murmur ABDOMEN: Slightly distended but soft, bowel sounds present, tolerating trickle tube feeds. : Johns in place with conrad urine output. mild/moderate scrotal edema. MUSCULOSKELETAL: No obvious deformity. 1+ edema all extremities NEUROLOGICAL: + gag and cough. No eye contact or response to visual threat. No motor response to deep noxious stimuli. Date of Insertion: Mar 25, 2017 Line: Central Venous Catheter Side: Left Location: Internal A/P Assessment and Plan Neuro/Psych: Osmotic demyelination syndrome Acute toxic metabolic encephalopathy secondary to hypercarbic respiratory failure Alcohol dependence History of EtOH induced seizure withdrawal Chronic benzodiazepine use Off versed since 03/30. Remains on fentanyl 100 mcg an hour drips for sedation/ analgesia. oxycodone 5 mg q6 prn pain. Nimbex drip discontinue 03/27 Goal of RASS -2 MRI 03/21 - T1/T2 prolonged with sparing of this central appears final fibers. 2 small spots in the posterior central spinal tract consistent with Osmotic demyelination syndrome. ODS most likely from correction of Na, with underlying alcoholism. MRI brain 03/28 revealed subacute bilateral thalamic lacunar infarcts, CPM. CT head 03/05 revealed no acute intracranial findings Continue thiamine/folate and multivitamin. Seen by neurology/Dr. Mazariegos. Respiratory: Acute hypoxemic hypercapnic respiratory failure PRVC 16/550/1.02/14/40 Ventilator bundle Bronchodilator therapy every 4 hours and as needed d/c 3% hypertonic saline nebs Duoneb q 6hours Thorazine 03/31 for hiccups. Cardiovascular: Chronic Systolic heart failure Lactic acidosis Echocardiogram 03/04 revealed EF 35-40%. Mild mR. Left atrium dilated. JANE 33 mmHg TSH within normal limits 0.8 Remains on Kiran-Synephrine at 40 mcg/m and unable to wean. Will replace with levophed for some Beta 1 and try to wean off pressors from there. Prior cortisol levels in early march were normal, but relative adrenal insufficiency remains a possibility and may try empiric hydrocortisone ~ 25-50 mg bid if remain incapable of weaning. Renal: Acute Kidney Injury- Rhabdomyolysis- resolved ODS-see neuro Accurate I's and O's Monitor urine output closely. Adequate past 24 hours Follow BMP in a.m. Decrase D5 1/2 NS @ 50 ml/hr. GI: EtOH cirrhosis Hyperammonemia Hiatal hernia Sigmoid diverticulosis History of umbilical hernia repair Placed on Xifaxan 550 twice a day/lactulose 30 twice a day. Recheck ammonia recently 12. LFT is elevated. Ultrasound liver-hepatosplenomegaly. Sludge in gallbladder Patient on Prilosec 20 mg by mouth daily at home. Currently in IV Protonix Increase Reglan 10 every8 hours/prokinetic agent. Tolerating trickle feeds via Dobhoff so will attempt advancement. HAving BMs s/p Relistor 03/29. Heme: Macrocytic anemia Possibly leukemoid/stress versus aspiration Hemoglobin currently around 8. Post units 2 PRBCs overnight 03/27 Monitor CBC daily. Follow trends B12 1452, Folate 15.2. TSH 0.8. ID: Likely aspiration pneumonia Escherichia coli UTI 03/11 - completed therapy Acinetobacter pneumonia Pertinent cultures 03/29 - blood cultures 2 - NGTD 03/25 - sputum --Acinetobacter. 03/25 - urine - NGTD 03/25 - blood cultures 2 -no growth 03/22 - urine - no growth 03/22 - blood cultures 2 - negative 03/20 - blood cultures 2 - no growth 03/11 - urine - Escherichia coli 03/02 - blood cultures 2 - no growth Followed by Dr. Lisa/ID. Now on unasyn per D since 03/28, flagyl po 03/24 #8 . sputum culture from 03/25 postive for acinetobacter, sensitive to unasyn. Endocrine: Hyperglycemia of critical illness History of hypothyroidism SSI with Accu-Cheks every 4 hours to maintain euglycemia FEN: Hyperkalemia Hypophosphatemia - resolved Replace electrolytes as clinically indicated MSK: History of old left clavicle fracture PT/OT evaluate and treat Access Left IJ TLC placed 03/25 #7 Prophylaxis: GI - Protonix DVT - SCD/heparin subcutaneous Critical Care: The total critical care time was 32 minutes. Time to perform other separately billable procedures was not included in the critical care time. Patients overall prognosis appears poor with cirrhosis, cardiomyopathy, severe hyponatremia (dating back to 2014), now with evidence of osmotic demyelination following correction of severe life threatening hypovolemic shock. He is encephalopathic and not able to participate in decision making regarding goals of care. Palliative care medicine following, note reviewed Tamanna Sandhu, daughter/ HCP: from [facility] [phone] now confirmed transferred to [facility] in [facility] ([phone]) this week. She elected DNR status. Code status - DNR. Per. Dr. Ruby: Discussed with his [id number]-vea Joanna Sandhu. Patient has 1 brother in close contact/also an alcoholic and 2 sisters whom he does not keep contact with. If daughter iban unwilling to make further medical decisions would fall back to 1 brother who likely would withdrawal care. Dohijo-lv-rpu Joanna will leave phone numbers of brother and 2 sisters with David Roche/Amanda Willoughby MD Mar 31, 2017 19:55
[2017-03-31] MEDS ORDERED: TERBUTALINE INJ 1 MG/ML AMP SQ PRN (21:45)
[2017-04-01] VITALS (18 sets, daily range): BP systolic 92–100; BP diastolic 58–68; PULSE 91–117; RESP 18–22; TEMP 98.5–99.1; O2SAT 97–100
[2017-04-01] MEDS: NOREPINEPHRINE-DEXTROSE DRIP 250 ML IV SCH ×3 (03:02→16:48)
[2017-04-01] MEDS: DEXT 5%-NACL 0.45% 1000 ML INJ 1,000 ML IV SCH (03:05)
[2017-04-01] MEDS: RESP: ALBUTEROL 2.5 MG/IPRATROPIUM 0.5 MG NEB (SCH) NEB ×4 (03:22→21:41)
[2017-04-01] MEDS: INSULIN NovoLIN REGULAR SUPPLEMENTAL SCALE SQ SCH ×5 (03:45→20:00)
[2017-04-01] MEDS: AMPICILLIN-SULBACTAM INJ 3 GM in SODIUM CHLORIDE 0.9% INJ 100 ML IV SCH ×4 (03:46→22:28)
[2017-04-01 04:24] LABS: AUTOMATED NEUTROPHIL # 6.8 TH/MM3 (1.8-7.7); BASOPHIL % 0.4 % (0.0-2.0); EOSINOPHIL # 0.1 TH/MM3 (0-0.4); HEMATOCRIT 26.9 % (39.0-51.0); HEMO FLAGS DIFF FINAL; LYMPH % 15.1 % (9.0-44.0); LYMPHOCYTE # 1.3 TH/MM3 (1.0-4.8); MEAN CELL VOLUME 103.9 FL (80.0-100.0); MEAN CORPUSCULAR HEMOGLOBIN 35.2 PG (27.0-34.0); MEAN CORPUSCULAR HGB CONC 33.9 % (32.0-36.0); MONO % 5.2 % (0.0-8.0); NEUT % 78.3 % (16.0-70.0); PLATELET COUNT 177 TH/MM3 (150-450); RED BLOOD COUNT 2.59 MIL/MM3 (4.50-5.90); RED CELL DISTRIBUTION WIDTH 16.2 % (11.6-17.2); WHITE BLOOD COUNT 8.7 TH/MM3 (4.0-11.0)
[2017-04-01 04:48] LABS: ALT (GPT) 26 U/L (12-78); ANION GAP 12 MEQ/L (5-15); AST (GOT) 138 U/L (15-37); BICARBONATE 18.8 MEQ/L (21.0-32.0); BLOOD UREA NITROGEN 15 MG/DL (7-18); CHLORIDE 105 MEQ/L (98-107); GLOMERULAR FILTRATION RATE 96 ML/MIN (>89); POTASSIUM 3.5 MEQ/L (3.5-5.1); SODIUM (NA) 136 MEQ/L (136-145)
[2017-04-01 04:50] LABS: ALKALINE PHOSPHATASE 148 U/L (45-117); TOTAL BILIRUBIN ADULT 1.9 MG/DL (0.2-1.0)
[2017-04-01] MEDS: METOCLOPRAMIDE HCL 10 MG/2 ML VIAL IV PUSH SCH ×3 (05:49→21:13)
[2017-04-01] MEDS: metroNIDAZOLE 500 MG TAB PO SCH ×3 (05:50→21:13)
[2017-04-01] MEDS: HEPARIN SODIUM - SQ 10,000 UNITS/ML VIAL SQ SCH ×3 (05:50→21:12)
[2017-04-01] MEDS: ARTIFICIAL TEARS OPTH SOLN 15 ML BTL EACH EYE SCH ×3 (08:54→16:07)
[2017-04-01] MEDS: CHLORHEXIDINE 0.12% (ORAL KIT) 15 ML CUP MT SCH ×2 (08:54→21:11)
[2017-04-01] MEDS: MUPIROCIN 2% OINT 1 APPLIC/GM SYR EACH NARE SCH ×2 (08:55→21:12)
[2017-04-01] MEDS: RIFAXIMIN 550 MG TAB PO SCH ×2 (08:56→21:12)
[2017-04-01] MEDS: DOCUSATE SODIUM 100 MG CAP PO SCH ×2 (08:56→21:12)
[2017-04-01] MEDS: LACTOBACILLUS ACIDOPHILUS TAB PO SCH ×3 (08:56→16:07)
[2017-04-01] MEDS: THIAMINE INJ 100 MG in SODIUM CHLORIDE 0.9% INJ 100 ML IV SCH (08:56)
[2017-04-01] MEDS: LACTULOSE SYRUP 20 GM/30 ML CUP PO SCH ×2 (08:56→21:12)
[2017-04-01] MEDS: PANTOPRAZOLE SODIUM 40 MG VIAL IV SCH (08:56)
[2017-04-01] MEDS: SODIUM CHLORIDE 0.9% FLUSH 10 ML FLUSH IV FLUSH SCH ×2 (08:57→22:27)
[2017-04-01] MEDS: SODIUM CHLORIDE 0.9% FLUSH 10 ML FLUSH IVF SCH (08:57)
--- NOTE | 2017-04-01 10:35 | HHI.HCPN ---
Spoke with [facility] (#[phone]). Daughter Tamanna is able to serve as medical proxy decision maker. Facilitation of conversations with Tamanna can be arranged through booking (#[phone]) in emergency situations to address goals of care. For any issues Officer Herb states to ask for a [place] on staff as shifts rotate throughout the week. Palliative care will continue to follow throughout hospitalization to address goals of care. Anna Marie Barrera EMT DISPATCHER, WORD PROCESSOR OPERATOR April 01, 2017 10:35
[2017-04-01] MEDS: POTASSIUM CHLOR 40 MEQ PREMIX 100 ML IV PRN (10:58)
--- NOTE | 2017-04-01 12:45 | HHI.IDPN ---
Subjective Subjective Remarks Notes reviewed Temps low grade 99-100 Sedated on the vent On levophed Has a lot of ET secretions Sputum with MDR Acinetobacter Johns in place, has a lot of sediment in the urine BC negative UC neg so far CXR reviewed - stable loan infiltrates Has liquid stool - C diff negative Antibiotics Unasyn Flagyl Lines LIJ TLC Past Medical History ETOHism Allergies: Coded Allergies: PEANUTS (Unverified Allergy, Severe, 03/02/17) *MDRO Multi-Drug Resistant Organism (Verified Adverse Reaction, Unknown, ) MRSA PCR screen POSITIVE - 03/02/17 MDR Acinetobacter (sputum) - 03/25/17 Objective . Vital Signs Date Time Temp Pulse Resp B/P Pulse Ox O2 Delivery O2 Flow Rate FiO2 04/01/17 12:05 100 35 04/01/17 10:00 115 04/01/17 08:40 97 35 04/01/17 08:00 99.0 111 18 98/67 97 04/01/17 08:00 35 04/01/17 08:00 97 Mechanical Ventilator 35 04/01/17 08:00 111 04/01/17 06:00 117 04/01/17 04:08 99 35 04/01/17 04:00 35 04/01/17 04:00 106 04/01/17 04:00 99.1 106 22 95/58 100 04/01/17 04:00 98 Mechanical Ventilator 35 04/01/17 02:00 104 04/01/17 00:44 100 35 04/01/17 00:00 105 04/01/17 00:00 35 04/01/17 00:00 99.0 105 20 96/68 100 04/01/17 00:00 98 Mechanical Ventilator 35 03/31/17 22:00 97 03/31/17 20:36 98 35 03/31/17 20:00 98 Mechanical Ventilator 35 03/31/17 20:00 35 03/31/17 20:00 99.1 89 20 102/60 98 03/31/17 20:00 89 03/31/17 18:00 90 03/31/17 16:00 100 Mechanical Ventilator 35 03/31/17 16:00 83 03/31/17 16:00 97.6 83 18 105/70 100 03/31/17 16:00 35 03/31/17 15:00 96 35 03/31/17 14:00 79 03/31/17 03/31/17 04/01/17 15:00 23:00 07:00 Intake Total 1392 ml 1348 ml 1428 ml Output Total 625 ml 700 ml 500 ml Balance 767 ml 648 ml 928 ml IV Total 1214 ml 1068 ml 1011 ml Tube Feeding 78 ml 80 ml 157 ml Other 100 ml 200 ml 260 ml Output Urine Total 625 ml 700 ml 500 ml # Bowel Movements 1 1 . Laboratory Tests Test 03/31/17 04/01/17 04:24 03:45 White Blood Count 8.3 TH/MM3 8.7 TH/MM3 Red Blood Count 2.61 MIL/MM3 2.59 MIL/MM3 Hemoglobin 9.1 GM/DL 9.1 GM/DL Hematocrit 26.5 % 26.9 % Mean Corpuscular Volume 101.6 FL 103.9 FL Mean Corpuscular Hemoglobin 34.9 PG 35.2 PG Mean Corpuscular Hemoglobin 34.3 % 33.9 % Concent Red Cell Distribution Width 15.8 % 16.2 % Platelet Count 185 TH/MM3 177 TH/MM3 Mean Platelet Volume 8.6 FL 8.3 FL Neutrophils (%) (Auto) 77.8 % 78.3 % Lymphocytes (%) (Auto) 14.9 % 15.1 % Monocytes (%) (Auto) 5.5 % 5.2 % Eosinophils (%) (Auto) 1.3 % 1.0 % Basophils (%) (Auto) 0.5 % 0.4 % Neutrophils # (Auto) 6.4 TH/MM3 6.8 TH/MM3 Lymphocytes # (Auto) 1.2 TH/MM3 1.3 TH/MM3 Monocytes # (Auto) 0.5 TH/MM3 0.4 TH/MM3 Eosinophils # (Auto) 0.1 TH/MM3 0.1 TH/MM3 Basophils # (Auto) 0.0 TH/MM3 0.0 TH/MM3 CBC Comment DIFF FINAL DIFF FINAL Differential Comment Laboratory Tests Test 03/30/17 03/31/17 04/01/17 17:00 04:24 03:45 Lipase 131 U/L Sodium Level 135 MEQ/L 136 MEQ/L Potassium Level 3.6 MEQ/L 3.5 MEQ/L Chloride Level 105 MEQ/L 105 MEQ/L Carbon Dioxide Level 19.9 MEQ/L 18.8 MEQ/L Anion Gap 10 MEQ/L 12 MEQ/L Blood Urea Nitrogen 18 MG/DL 15 MG/DL Creatinine 0.92 MG/DL 0.82 MG/DL Estimat Glomerular Filtration 84 ML/MIN 96 ML/MIN Rate Random Glucose 104 MG/DL 148 MG/DL Calcium Level 7.7 MG/DL 7.7 MG/DL Total Bilirubin 1.9 MG/DL 1.9 MG/DL Aspartate Amino Transf 100 U/L 138 U/L (AST/SGOT) Alanine Aminotransferase 22 U/L 26 U/L (ALT/SGPT) Alkaline Phosphatase 110 U/L 148 U/L Total Protein 5.3 GM/DL 5.4 GM/DL Albumin 1.3 GM/DL 1.3 GM/DL Imaging Chest X-Ray 03/27/17 0600 Signed Impressions: Service Date/Time: Monday, March 27, 2017 02:33 - CONCLUSION: No significant interval change. Víctor Rosas MD Chest X-Ray 03/26/17 0600 Signed Impressions: Service Date/Time: Sunday, March 26, 2017 05:35 - CONCLUSION: Improving bilateral pulmonary infiltrates Víctor Rosas MD Chest X-Ray 03/25/17 1004 Signed Impressions: Service Date/Time: Saturday, March 25, 2017 10:03 - CONCLUSION: 1. Worsening bibasilar consolidation. 2. Endotracheal tube with tip at the thoracic inlet and should be advanced at least 3-4 cm. 3. Adequate placement of left jugular central line without pneumothorax. Logan Morgan MD Chest X-Ray 03/26/17 0600 Signed Impressions: Service Date/Time: Sunday, March 26, 2017 05:35 - CONCLUSION: Improving bilateral pulmonary infiltrates Víctor Rosas MD Lower Extremity Ultrasound 03/25/17 0000 Signed Impressions: Service Date/Time: Saturday, March 25, 2017 22:17 - CONCLUSION: No evidence of DVT. Víctor Rosas MD CT Angiography 03/21/17 0000 Signed Impressions: Service Date/Time: March 00:33 - CONCLUSION: No evidence of pulmonary embolism is identified. Mild atelectasis left lung base. Fluid or phlegm within the trachea. Milo Muhammad MD Brain MRI 03/20/17 0000 Signed Impressions: Service Date/Time: Monday, March 20, 2017 16:11 - CONCLUSION: Abnormal appearance to the ruthy with some extension into the cortical spinal tracts of the posterior thalamus was bilaterally. 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 Cheo Martínez MD Abdomen X-Ray 03/20/17 0000 Signed Impressions: Service Date/Time: Monday, March 20, 2017 18:12 - CONCLUSION: Tip of the Dobbhoff tube projecting towards the pylorus. Cheo Barrera Jr., MD Abdomen Ultrasound 03/20/17 0000 Signed Impressions: Service Date/Time: Monday, March 20, 2017 11:38 - CONCLUSION: 1. Hepatosplenomegaly without focal lesion. 2. Probable sludge within the lumen of the gallbladder. No intrahepatic duct. Cheo Martínez MD Shoulder X-Ray 03/02/17 1404 Signed Impressions: Service Date/Time: Thursday, March 02, 2017 15:18 - CONCLUSION: No evidence of recent bony injury. Deformity of the lateral left clavicle suggests old healed trauma. Cheo Martínez MD Maxillofacial CT 03/02/17 1342 Signed Impressions: Service Date/Time: Thursday, March 02, 2017 14:52 - CONCLUSION: Negative CT of the facial bones. Cheo Martínez MD Head CT 03/02/17 1342 Signed Impressions: Service Date/Time: Thursday, March 02, 2017 14:52 - CONCLUSION: 1. Prominent scalp swelling left frontal and parietal region. No skull fracture seen. 2. Intracranial contents are intact without acute finding. Cheo Martínez MD Chest CT 03/02/17 1342 Signed Impressions: Service Date/Time: Thursday, March 02, 2017 15:04 - CONCLUSION: 1. Abnormal appearance of the lateral left clavicle suggesting a combination of acute and chronic bony injury. Fracture lucencies without bridging callus is seen the region of the coracoid process. 2. The lungs are clear. No evidence of pneumothorax. 3. Moderate size hiatus hernia. Cheo Martínez MD Cervical Spine CT 03/02/17 1342 Signed Impressions: Service Date/Time: Thursday, March 02, 2017 14:52 - CONCLUSION: Negative CT cervical spine. Cheo Martínez MD Abdomen/Pelvis CT 03/02/17 1342 Signed Impressions: Service Date/Time: Thursday, March 02, 2017 15:04 - CONCLUSION: Moderate size hiatus hernia. Scattered small sigmoid diverticula. Otherwise negative exam. Cheo Martínez MD Chest X-Ray 03/25/17 1004 Signed Impressions: Service Date/Time: Saturday, March 25, 2017 10:03 - CONCLUSION: 1. Worsening bibasilar consolidation. 2. Endotracheal tube with tip at the thoracic inlet and should be advanced at least 3-4 cm. 3. Adequate placement of left jugular central line without pneumothorax. Logan Morgan MD Chest X-Ray 03/23/17 0000 Signed Impressions: Service Date/Time: Thursday, March 23, 2017 14:27 - CONCLUSION: 1. Feeding tube in place with what appears to be a loop in the hypopharynx. 2. Bibasilar areas of consolidation or atelectasis. Casper Vargas MD Physical Exam GENERAL: sedated, on the vent, not in distress. SKIN: Warm and dry. No generalized rash. Has some edema in his upper extremities. HEENT: Pupils equal round and reactive. Mild scleral icterus. Has scleral edema. No injection or drainage. Orally intubated. Poor dentition NECK: Supple, nontender, no meningeal signs. CARDIOVASCULAR: Regular rate and rhythm without murmurs, gallops, or rubs. Tachycardic. RESPIRATORY: Has few scattered rhonchi, decreased BS at bases GASTROINTESTINAL: Abdomen mildly distended, bowel sounds are present and normoactive, no reaction to palpation MUSCULOSKELETAL: Lower extremities without clubbing, cyanosis, or edema. No joint effusion. NEUROLOGICAL: Sedated. PSYCH: Unable to assess : Johns cath in place, urine looks better LINE: central line site ok Assessment & Plan Remarks IMPRESSION Sepsis syndrome, due to PNA - on vent - has MDR Acinetobacter Septic shock Known ETOH abuse Encephalopathy - sepsis, ETOH, CPM Respiratory failure Diarrhea, C diff negative RECOMMENDATION Continue Unasyn for MDR Acinetobacter Continue Flagyl for now Follow temps Monitor progress Follow new C/S Umm Lisa MD April 01, 2017 12:45
[2017-04-01] MEDS ORDERED: HALOPERIDOL LACTATE 5 MG/ML AMP IV PRN (19:15)
--- NOTE | 2017-04-01 19:16 | HHI.CCPN ---
Subjective Remarks/Hospital Course This is a 61-year-old male with a past history of alcohol abuse and a prior admission in 2015 for severe life-threatening hyponatremia at that time with a serum sodium of 98. He presents today with what he states is a 13 day history of worsening fatigue and weakness. He is very altered and is very difficult to understand the patient. What I can understand from him, is that at some point during these 13 days he has fallen and hit his face. Otherwise he states he lays on the couch, and has not gotten not much. He states he drinks 1 beer in the morning, and 1 beer in the afternoon. He does endorse taking some Xanax to help him sleep. He denies other drug use. He denies chest pain, shortness of breath, fever, chills, nausea, vomiting, abdominal pain. It is very difficult to get him to answer anymore questions about his medical history. His speech is very slurred and he is trying to talk about how he misses his daughter. Emergency department he was found to have a serum sodium of 99, a bilirubin of 8.9, lactate of 9.8, ammonia of 60, CK of 7000, elevated troponin of 4.9 with a normal MB ratio, creatinine 1.5, serum bicarbonate of 13. His white count is 12 , platelets 112. INR 1.9. His MELD calculates at 26. 4/2: Sodium level rapidly corrected overnight, likely secondary to appropriate correction of severe life-threatening dehydration. NS fluids changed to 1/2NS and correction slowed down significantly. sodium up to 130 this AM. CK downtrending. however, patient remains severely hypotensive requiring Levophed to maintain a map > 65 mmHg. This AM, serum K 1.6 (confirmed). started replacement with 200meq KCl and recheck K. 03/04: persists in vasoplegic distributive shock. afebrile. no evidence of infection. wbc downtrending. persists with severe life-threatening electrolyte derangements. passed swallow eval for nectar thick liquids. sodium stable at 131. ck downtrending. 03/05: persists in distributive shock. echo yesterday with EF 30%, globally decreased function. milrinone added yesterday with improvement in vasopressor requirement. still with multiple electrolyte abnormalities despite very aggressive replacement. very poor appetite. sodium stable at 131, which appears to be around baseline for him, looking back at prior records. also became agitated and delirious yesterday, likely secondary to etoh withdraw. started on Ativan and Librium. 03/06: electrolyte derangements persist. placed on continuous NaPhos infusion x 24h due to severe life-threatening hypophosphatemia. serial K, phos checks. weaning off levophed, milrinone persists. still poor appetite. sodium jumped from 132 to 139, but no significant mental status change, and we did not increase sodium load. 03/07: still requiring high electrolyte replacement. milrinone weaned to 0.375 mcg /kg/min overnight. still doing well with that. delirium persists. 03/08 Remains on milrinone. Electrolyte improving. Remains very lethargic, intermittently follows commands 03/09: Continues to be lethargic but wakes up follows some commands. Remains on milrinone will DC today. T max 100.1, urine output adequate sodium is 143 03/10: More awake alert, ate 50% of break fast. Will DC Dobhoff. Discontinue arterial and central lines. Delirium also improved, remains weak 03/11: doing much better this morning. no complaints. still with poor appetite. electrolytes improved. 03/20: We consulted for respiratory failure. Patient was last seen in room 1415 CMP receiving oral cares and became acutely hypoxic saturations 82% with coarse breath sounds. Halicat called. Patient was placed on a Venturi mask 50 % with desaturations to the mid 90s. He received Solu-Medrol 20 mg IV 1, Lasix 40 mg IV 1 and was transferred IM [facility] 521. Hemodynamically stable. Poor mentation 03/25: Reconsulted due to respiratory failure. Patient with gurgling/ transmitted upper airway sounds. Respiration the 50s. Decision made to orotracheally intubate. Noted to have been febrile with increased O2 course over the past 48 hours. 03/26: Afebrile. Requiring Nimbex drip for ventilator synchrony. Decreased urine output noted. Hemoglobin decreased likely dilutional. Tolerating tube feeding. Electrolytes been replaced. 03/27: Tmax 100.9. Currently 97.2. +6 L past 24 hours. Hemoglobin 8 transfuse overnight. Potassium 3. We'll discontinue Nimbex drip for vent synchrony today. 03/28: Afebrile. Negative fluid balance past 24 hours. Hemoglobin currently 9. Potassium 3.0. Currently on sedation vacation positive gag and otherwise unresponsive. 03/29: Tmax 103. Currently afebrile. Not tolerating tube feeds. Remains on Kiran-Synephrine. Did not tolerate sedation vacation back on Versed at 5 mg an hour fentanyl drip at 100 mcg an hour. One bowel movement. 03/30 Tube feeds remain on hold. On neosynephrine 40 mcg/min, RN states she has been weaning. Having BMs. On Versed 8 mg/hr and fentanyl 100 mcg/hr. 03/31 Off versed. Remains on fentanyl 100 mcg/hr. Having hiccups. Still on neosynephrine 40 mcg/min. Tolerating trickle feeds. Had 2 bowel movements Subjective: 04/01: no meaningful change. still requires fentanyl for sedation. still on low- dose vasopressors. Objective Vital Signs Date Time Temp Pulse Resp B/P Pulse Ox O2 Delivery O2 Flow Rate FiO2 04/01/17 18:00 96 04/01/17 17:39 99 35 04/01/17 16:00 Mechanical Ventilator 04/01/17 16:00 98.5 19 100/67 Intake and Output 03/31/17 03/31/17 04/01/17 08:00 16:00 00:00 Intake Total 1774 ml 1392 ml 1348 ml Output Total 325 ml 625 ml 700 ml Balance 1449 ml 767 ml 648 ml Result Diagram: 04/01/17 0345 04/01/17 0345 Imaging Last Impressions Chest X-Ray 03/29/17 0600 Signed Impressions: Service Date/Time: Wednesday, March 29, 2017 05:09 - CONCLUSION: No significant change bibasilar consolidation and small effusions. Casper Clifton MD Head Magnetic Resonance Angiography 03/28/17 0000 Signed Impressions: Service Date/Time: March 17:22 - CONCLUSION: Unremarkable examination. Bety Castillo MD Brain MRI 03/28/17 0000 Signed Impressions: Service Date/Time: March 17:22 - CONCLUSION: 1. 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 Small subacute ischemic bilateral thalamic infarcts. 2. There has been no significant change when compared to the prior exam. Yinka Harman MD Lower Extremity Ultrasound 03/25/17 0000 Signed Impressions: Service Date/Time: Saturday, March 25, 2017 22:17 - CONCLUSION: No evidence of DVT. Víctor Rosas MD CT Angiography 03/21/17 0000 Signed Impressions: Service Date/Time: March 00:33 - CONCLUSION: No evidence of pulmonary embolism is identified. Mild atelectasis left lung base. Fluid or phlegm within the trachea. Milo Muhammad MD Abdomen X-Ray 03/20/17 0000 Signed Impressions: Service Date/Time: Monday, March 20, 2017 18:12 - CONCLUSION: Tip of the Dobbhoff tube projecting towards the pylorus. Cheo Barrera Jr., MD Abdomen Ultrasound 03/20/17 0000 Signed Impressions: Service Date/Time: Monday, March 20, 2017 11:38 - CONCLUSION: 1. Hepatosplenomegaly without focal lesion. 2. Probable sludge within the lumen of the gallbladder. No intrahepatic duct. Cheo Martínez MD Shoulder X-Ray 03/02/17 1404 Signed Impressions: Service Date/Time: Thursday, March 02, 2017 15:18 - CONCLUSION: No evidence of recent bony injury. Deformity of the lateral left clavicle suggests old healed trauma. Cheo Martínez MD Maxillofacial CT 03/02/17 1342 Signed Impressions: Service Date/Time: Thursday, March 02, 2017 14:52 - CONCLUSION: Negative CT of the facial bones. Cheo Martínez MD Head CT 03/02/17 1342 Signed Impressions: Service Date/Time: Thursday, March 02, 2017 14:52 - CONCLUSION: 1. Prominent scalp swelling left frontal and parietal region. No skull fracture seen. 2. Intracranial contents are intact without acute finding. Cheo Martínez MD Chest CT 03/02/17 1342 Signed Impressions: Service Date/Time: Thursday, March 02, 2017 15:04 - CONCLUSION: 1. Abnormal appearance of the lateral left clavicle suggesting a combination of acute and chronic bony injury. Fracture lucencies without bridging callus is seen the region of the coracoid process. 2. The lungs are clear. No evidence of pneumothorax. 3. Moderate size hiatus hernia. Cheo Martínez MD Cervical Spine CT 03/02/17 1342 Signed Impressions: Service Date/Time: Thursday, March 02, 2017 14:52 - CONCLUSION: Negative CT cervical spine. Cheo Martínez MD Abdomen/Pelvis CT 03/02/17 1342 Signed Impressions: Service Date/Time: Thursday, March 02, 2017 15:04 - CONCLUSION: Moderate size hiatus hernia. Scattered small sigmoid diverticula. Otherwise negative exam. Cheo Martínez MD Objective Remarks GENERAL: 61-year-old chronically ill appearing male, currently critically ill, orotracheally intubated. HEENT: Healing abrasion left side scalp. TIMOTHY. Scleral icterus. Very poor dentition. NECK: Trachea Midline RESP: Coarse breath sounds bilaterally. Few wheezes. CARDIOVASCULAR: Tachycardia, RR. ABDOMEN: Slightly distended but soft, bowel sounds present, tolerating trickle tube feeds. : Johns in place with conrad urine output. mild/moderate scrotal edema. MUSCULOSKELETAL: No obvious deformity. 1+ edema all extremities NEUROLOGICAL: + gag and cough. No eye contact or response to visual threat. No motor response to deep noxious stimuli. Date of Insertion: Mar 25, 2017 Line: Central Venous Catheter Side: Left Location: Internal A/P Assessment and Plan Neuro/Psych: Osmotic demyelination syndrome Acute toxic metabolic encephalopathy secondary to hypercarbic respiratory failure Alcohol dependence History of EtOH induced seizure withdrawal Chronic benzodiazepine use Off versed since 03/30. Remains on fentanyl 100 mcg an hour drips for sedation/ analgesia. oxycodone 5 mg q6 prn pain. start zyprexa 5mg po q8hr start haldol 5mg iv q4h prn for breakthrough wean off fentanyl. Goal of RASS 0 MRI 03/21 - T1/T2 prolonged with sparing of this central appears final fibers. 2 small spots in the posterior central spinal tract consistent with Osmotic demyelination syndrome. ODS most likely from correction of Na, with underlying alcoholism. MRI brain 03/28 revealed subacute bilateral thalamic lacunar infarcts, CPM. CT head 03/05 revealed no acute intracranial findings Continue thiamine/folate and multivitamin. Seen by neurology/Dr. Mazariegos. Respiratory: Acute hypoxemic hypercapnic respiratory failure PRVC 16/550/1.3//40 Ventilator bundle Bronchodilator therapy every 4 hours and as needed Duoneb q 6hours Thorazine 03/31 for hiccups. Cardiovascular: Chronic Systolic heart failure Lactic acidosis Echocardiogram 03/04 revealed EF 35-40%. Mild mR. Left atrium dilated. JANE 33 mmHg TSH within normal limits 0.8 Remains on Kiran-Synephrine at 40 mcg/m and unable to wean. Will replace with levophed for some Beta 1 and try to wean off pressors from there. Prior cortisol levels in early march were normal, but relative adrenal insufficiency remains a possibility and may try empiric hydrocortisone ~ 25-50 mg bid if remain incapable of weaning. start midodrine to help wean off pressors. Renal: Acute Kidney Injury- Rhabdomyolysis- resolved ODS-see neuro Accurate I's and O's Monitor urine output closely. Adequate past 24 hours Follow BMP in a.m. saline lock mivf. GI: EtOH cirrhosis Hyperammonemia Hiatal hernia Sigmoid diverticulosis History of umbilical hernia repair Placed on Xifaxan 550 twice a day/lactulose 30 twice a day. Recheck ammonia recently 12. LFT is elevated. Ultrasound liver-hepatosplenomegaly. Sludge in gallbladder Patient on Prilosec 20 mg by mouth daily at home. Currently in IV Protonix Increase Reglan 10 every8 hours/prokinetic agent. Tolerating trickle feeds via Dobhoff so advance to goal. HAving BMs s/p Relistor 03/29. Heme: Macrocytic anemia Possibly leukemoid/stress versus aspiration Hemoglobin currently around 8. Post units 2 PRBCs overnight 03/27 Monitor CBC daily. Follow trends B12 1452, Folate 15.2. TSH 0.8. ID: Likely aspiration pneumonia Escherichia coli UTI 03/11 - completed therapy Acinetobacter pneumonia Pertinent cultures 03/29 - blood cultures 2 - NGTD 03/25 - sputum --Acinetobacter. 03/25 - urine - NGTD 03/25 - blood cultures 2 -no growth 03/22 - urine - no growth 03/22 - blood cultures 2 - negative 03/20 - blood cultures 2 - no growth 03/11 - urine - Escherichia coli 03/02 - blood cultures 2 - no growth Followed by Dr. Lisa/ID. Now on unasyn per D since 03/28, flagyl po 03/24 #9 . sputum culture from 03/25 postive for acinetobacter, sensitive to unasyn. Endocrine: Hyperglycemia of critical illness History of hypothyroidism SSI with Accu-Cheks every 4 hours to maintain euglycemia FEN: Hyperkalemia Hypophosphatemia - resolved Replace electrolytes as clinically indicated MSK: History of old left clavicle fracture PT/OT evaluate and treat Access Left IJ TLC placed 03/25 #8 Prophylaxis: GI - Protonix DVT - SCD/heparin subcutaneous Patients overall prognosis appears poor with cirrhosis, cardiomyopathy, severe hyponatremia (dating back to 2014), now with evidence of osmotic demyelination following correction of severe life threatening hypovolemic shock. He is encephalopathic and not able to participate in decision making regarding goals of care. Palliative care medicine following, note reviewed Tamanna Sandhu, daughter/ HCP: from [facility] [phone] now confirmed transferred to [facility] in [employer] facility ([phone]) this week. She elected DNR status. Code status - DNR. Per. Dr. Ruby: Discussed with his [id number] Joanna Sandhu. Patient has 1 brother in close contact/also an alcoholic and 2 sisters whom he does not keep contact with. If daughter weas unwilling to make further medical decisions would fall back to 1 brother who likely would withdrawal care. [id number] Joanna will leave phone numbers of brother and 2 sisters with David Roche/Tu Goldstein MD April 01, 2017 19:15
[2017-04-01] MEDS: MIDODRINE 5 MG TAB PO SCH (21:12)
[2017-04-02] VITALS (18 sets, daily range): BP systolic 86–101; BP diastolic 60–70; PULSE 101–124; RESP 18–19; TEMP 98.4–100.2; O2SAT 96–100
[2017-04-02] MEDS: OLANZapine ODT 10 MG TAB PO SCH ×4 (00:07→21:12)
[2017-04-02] MEDS: NOREPINEPHRINE-DEXTROSE DRIP 250 ML IV SCH ×3 (02:57→21:14)
[2017-04-02] MEDS: RESP: ALBUTEROL 2.5 MG/IPRATROPIUM 0.5 MG NEB (SCH) NEB ×4 (03:49→22:22)
[2017-04-02] MEDS: INSULIN NovoLIN REGULAR SUPPLEMENTAL SCALE SQ SCH ×6 (04:00→20:00)
[2017-04-02] MEDS: AMPICILLIN-SULBACTAM INJ 3 GM in SODIUM CHLORIDE 0.9% INJ 100 ML IV SCH ×4 (04:31→23:00)
[2017-04-02] MEDS: HEPARIN SODIUM - SQ 10,000 UNITS/ML VIAL SQ SCH ×3 (05:44→21:12)
[2017-04-02] MEDS: METOCLOPRAMIDE HCL 10 MG/2 ML VIAL IV PUSH SCH ×3 (05:44→21:12)
[2017-04-02] MEDS: MIDODRINE 5 MG TAB PO SCH ×3 (05:44→21:13)
[2017-04-02] MEDS: metroNIDAZOLE 500 MG TAB PO SCH ×3 (05:44→21:12)
[2017-04-02] MEDS: fentaNYL DRIP 250 ML IV SCH (06:10)
[2017-04-02] MEDS: LACTOBACILLUS ACIDOPHILUS TAB PO SCH ×3 (08:43→17:21)
[2017-04-02] MEDS: THIAMINE INJ 100 MG in SODIUM CHLORIDE 0.9% INJ 100 ML IV SCH (08:44)
[2017-04-02] MEDS: RIFAXIMIN 550 MG TAB PO SCH ×2 (08:44→21:13)
[2017-04-02] MEDS: SODIUM CHLORIDE 0.9% FLUSH 10 ML FLUSH IVF SCH (08:44)
[2017-04-02] MEDS: SODIUM CHLORIDE 0.9% FLUSH 10 ML FLUSH IV FLUSH SCH ×2 (08:44→21:13)
[2017-04-02] MEDS: ARTIFICIAL TEARS OPTH SOLN 15 ML BTL EACH EYE SCH ×3 (08:45→17:21)
[2017-04-02] MEDS: PANTOPRAZOLE SODIUM 40 MG VIAL IV SCH (08:45)
[2017-04-02] MEDS: DOCUSATE SODIUM 100 MG CAP PO SCH ×2 (08:46→21:00)
[2017-04-02] MEDS: LACTULOSE SYRUP 20 GM/30 ML CUP PO SCH ×2 (08:46→21:00)
[2017-04-02] MEDS: MUPIROCIN 2% OINT 1 APPLIC/GM SYR EACH NARE SCH ×2 (08:46→21:15)
[2017-04-02] MEDS: CHLORHEXIDINE 0.12% (ORAL KIT) 15 ML CUP MT SCH ×2 (08:46→21:14)
--- NOTE | 2017-04-02 10:22 | HHI.IDPN ---
Subjective Subjective Remarks Notes reviewed Temps low grade 99-100 Sedated on the vent On levophed Sputum with MDR Acinetobacter Johns in place, has a lot of sediment in the urine BC negative UC neg so far Has liquid stool - C diff negative Antibiotics Unasyn Flagyl Lines LIJ TLC Past Medical History ETOHism Allergies: Coded Allergies: PEANUTS (Unverified Allergy, Severe, 03/02/17) *MDRO Multi-Drug Resistant Organism (Verified Adverse Reaction, Unknown, ) MRSA PCR screen POSITIVE - 03/02/17 MDR Acinetobacter (sputum) - 03/25/17 Objective . Vital Signs Date Time Temp Pulse Resp B/P Pulse Ox O2 Delivery O2 Flow Rate FiO2 04/02/17 10:02 96 35 04/02/17 10:00 108 04/02/17 08:00 109 04/02/17 08:00 35 04/02/17 08:00 100.2 109 18 92/62 96 04/02/17 08:00 96 Mechanical Ventilator 35 04/02/17 07:58 97 35 04/02/17 06:00 115 04/02/17 05:01 96 35 04/02/17 04:00 98 Mechanical Ventilator 35 04/02/17 04:00 35 04/02/17 04:00 124 04/02/17 02:00 118 04/02/17 00:44 100 35 04/02/17 00:00 35 04/02/17 00:00 101 04/02/17 00:00 98 Mechanical Ventilator 35 04/02/17 00:00 98.6 101 18 98/66 98 04/01/17 22:00 101 04/01/17 21:41 98 35 04/01/17 20:00 97 Mechanical Ventilator 35 04/01/17 20:00 98.8 93 18 99/65 99 04/01/17 20:00 93 04/01/17 20:00 35 04/01/17 18:00 96 04/01/17 17:39 99 35 04/01/17 16:00 97 Mechanical Ventilator 35 04/01/17 16:00 98.5 91 19 100/67 97 04/01/17 16:00 35 04/01/17 16:00 91 04/01/17 14:00 93 04/01/17 12:05 100 35 04/01/17 12:00 35 04/01/17 12:00 107 04/01/17 12:00 99 Mechanical Ventilator 35 04/01/17 12:00 99.0 107 18 92/66 99 04/01/17 04/01/17 04/02/17 15:00 23:00 07:00 Intake Total 1700 ml 1267 ml 705 ml Output Total 550 ml 650 ml 300 ml Balance 1150 ml 617 ml 405 ml Intake Oral 0 ml 0 ml IV Total 1302 ml 876 ml 290 ml Tube Feeding 248 ml 391 ml 315 ml Other 150 ml 0 ml 100 ml Output Urine Total 550 ml 650 ml 300 ml # Bowel Movements 0 1 . Laboratory Tests Test 04/01/17 03:45 White Blood Count 8.7 TH/MM3 Red Blood Count 2.59 MIL/MM3 Hemoglobin 9.1 GM/DL Hematocrit 26.9 % Mean Corpuscular Volume 103.9 FL Mean Corpuscular Hemoglobin 35.2 PG Mean Corpuscular Hemoglobin 33.9 % Concent Red Cell Distribution Width 16.2 % Platelet Count 177 TH/MM3 Mean Platelet Volume 8.3 FL Neutrophils (%) (Auto) 78.3 % Lymphocytes (%) (Auto) 15.1 % Monocytes (%) (Auto) 5.2 % Eosinophils (%) (Auto) 1.0 % Basophils (%) (Auto) 0.4 % Neutrophils # (Auto) 6.8 TH/MM3 Lymphocytes # (Auto) 1.3 TH/MM3 Monocytes # (Auto) 0.4 TH/MM3 Eosinophils # (Auto) 0.1 TH/MM3 Basophils # (Auto) 0.0 TH/MM3 CBC Comment DIFF FINAL Differential Comment Laboratory Tests Test 04/01/17 03:45 Sodium Level 136 MEQ/L Potassium Level 3.5 MEQ/L Chloride Level 105 MEQ/L Carbon Dioxide Level 18.8 MEQ/L Anion Gap 12 MEQ/L Blood Urea Nitrogen 15 MG/DL Creatinine 0.82 MG/DL Estimat Glomerular Filtration 96 ML/MIN Rate Random Glucose 148 MG/DL Calcium Level 7.7 MG/DL Total Bilirubin 1.9 MG/DL Aspartate Amino Transf 138 U/L (AST/SGOT) Alanine Aminotransferase 26 U/L (ALT/SGPT) Alkaline Phosphatase 148 U/L Total Protein 5.4 GM/DL Albumin 1.3 GM/DL Imaging Chest X-Ray 03/27/17 0600 Signed Impressions: Service Date/Time: Monday, March 27, 2017 02:33 - CONCLUSION: No significant interval change. Víctor Rosas MD Chest X-Ray 03/26/17 0600 Signed Impressions: Service Date/Time: Sunday, March 26, 2017 05:35 - CONCLUSION: Improving bilateral pulmonary infiltrates Víctor Rosas MD Chest X-Ray 03/25/17 1004 Signed Impressions: Service Date/Time: Saturday, March 25, 2017 10:03 - CONCLUSION: 1. Worsening bibasilar consolidation. 2. Endotracheal tube with tip at the thoracic inlet and should be advanced at least 3-4 cm. 3. Adequate placement of left jugular central line without pneumothorax. Logan Morgan MD Chest X-Ray 03/26/17 0600 Signed Impressions: Service Date/Time: Sunday, March 26, 2017 05:35 - CONCLUSION: Improving bilateral pulmonary infiltrates Víctor Rosas MD Lower Extremity Ultrasound 03/25/17 0000 Signed Impressions: Service Date/Time: Saturday, March 25, 2017 22:17 - CONCLUSION: No evidence of DVT. Víctor Rosas MD CT Angiography 03/21/17 0000 Signed Impressions: Service Date/Time: March 00:33 - CONCLUSION: No evidence of pulmonary embolism is identified. Mild atelectasis left lung base. Fluid or phlegm within the trachea. Milo Muhammad MD Brain MRI 03/20/17 0000 Signed Impressions: Service Date/Time: Monday, March 20, 2017 16:11 - CONCLUSION: Abnormal appearance to the ruthy with some extension into the cortical spinal tracts of the posterior thalamus was bilaterally. 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 Cheo Martínez MD Abdomen X-Ray 03/20/17 0000 Signed Impressions: Service Date/Time: Monday, March 20, 2017 18:12 - CONCLUSION: Tip of the Dobbhoff tube projecting towards the pylorus. Cheo Barrera Jr., MD Abdomen Ultrasound 03/20/17 0000 Signed Impressions: Service Date/Time: Monday, March 20, 2017 11:38 - CONCLUSION: 1. Hepatosplenomegaly without focal lesion. 2. Probable sludge within the lumen of the gallbladder. No intrahepatic duct. Cheo Martínez MD Shoulder X-Ray 03/02/17 1404 Signed Impressions: Service Date/Time: Thursday, March 02, 2017 15:18 - CONCLUSION: No evidence of recent bony injury. Deformity of the lateral left clavicle suggests old healed trauma. Cheo Martínez MD Maxillofacial CT 03/02/17 1342 Signed Impressions: Service Date/Time: Thursday, March 02, 2017 14:52 - CONCLUSION: Negative CT of the facial bones. Cheo Martínez MD Head CT 03/02/17 1342 Signed Impressions: Service Date/Time: Thursday, March 02, 2017 14:52 - CONCLUSION: 1. Prominent scalp swelling left frontal and parietal region. No skull fracture seen. 2. Intracranial contents are intact without acute finding. Cheo Martínez MD Chest CT 03/02/17 1342 Signed Impressions: Service Date/Time: Thursday, March 02, 2017 15:04 - CONCLUSION: 1. Abnormal appearance of the lateral left clavicle suggesting a combination of acute and chronic bony injury. Fracture lucencies without bridging callus is seen the region of the coracoid process. 2. The lungs are clear. No evidence of pneumothorax. 3. Moderate size hiatus hernia. Cheo Martínez MD Cervical Spine CT 03/02/17 1342 Signed Impressions: Service Date/Time: Thursday, March 02, 2017 14:52 - CONCLUSION: Negative CT cervical spine. Cheo Martínez MD Abdomen/Pelvis CT 03/02/17 1342 Signed Impressions: Service Date/Time: Thursday, March 02, 2017 15:04 - CONCLUSION: Moderate size hiatus hernia. Scattered small sigmoid diverticula. Otherwise negative exam. Cheo Martínez MD Chest X-Ray 03/25/17 1004 Signed Impressions: Service Date/Time: Saturday, March 25, 2017 10:03 - CONCLUSION: 1. Worsening bibasilar consolidation. 2. Endotracheal tube with tip at the thoracic inlet and should be advanced at least 3-4 cm. 3. Adequate placement of left jugular central line without pneumothorax. Logan Morgan MD Chest X-Ray 03/23/17 0000 Signed Impressions: Service Date/Time: Thursday, March 23, 2017 14:27 - CONCLUSION: 1. Feeding tube in place with what appears to be a loop in the hypopharynx. 2. Bibasilar areas of consolidation or atelectasis. Casper Vargas MD Physical Exam GENERAL: sedated, on the vent, not in distress. SKIN: Warm and dry. No generalized rash. Has some edema in his upper extremities. HEENT: Pupils equal round and reactive. Mild scleral icterus. Has improving scleral edema. Orally intubated. Poor dentition NECK: Supple, nontender, no meningeal signs. CARDIOVASCULAR: Regular rate and rhythm without murmurs, gallops, or rubs. Tachycardic. RESPIRATORY: Has few scattered rhonchi, decreased BS at bases GASTROINTESTINAL: Abdomen mildly distended, bowel sounds are present and normoactive, no reaction to palpation MUSCULOSKELETAL: Lower extremities without clubbing, cyanosis, or edema. No joint effusion. NEUROLOGICAL: Sedated. PSYCH: Unable to assess : Johns cath in place, urine looks better LINE: central line site ok Assessment & Plan Remarks IMPRESSION Sepsis syndrome, due to PNA - on vent - has MDR Acinetobacter Septic shock Known ETOH abuse Encephalopathy - sepsis, ETOH, CPM Respiratory failure Diarrhea, C diff negative RECOMMENDATION Continue Unasyn for MDR Acinetobacter Add Tobra nebs x 7 days Continue Flagyl for now Follow temps Monitor progress Follow new C/S Umm Lisa MD April 02, 2017 10:21
[2017-04-02] MEDS: RESP: TOBRAMYCIN SULFATE 80 MG/2 ML NEB NEB SCH ×2 (10:45→20:58)
--- NOTE | 2017-04-02 11:39 | HHI.HCPN ---
Reason for visit a. To assist with evaluation and management of symptoms including: dyspnea, pain. b. To assist medical decision maker(s) with: better understanding of current medical conditions; weighing benefits/burdens of medical treatment options; making medical treatment decisions. . Subjective/Interval History Mr Sandhu remains obtunded on a vent with fentanyl for sedation. attempting to ween using haldol and zyprexa. Pressures are stable 92/62 with midodrine. Labs are unremarkable with the exception of increasing liver enzymes ( AST 70->138) and albumin in low 1.3. Sputum positive for acinetobacter on 03/25 - follows by ID. Nothing recent from Neurology. Pt with Osmotic Demylination Syndrome. Prognosis poor Daughter Amie, now at [facility], is able to remain as decision maker. Advance Directives Living Will: Never completed Health Care Surrogate: Never completed Durable Power of Curing Machine Operator: Never completed Advance Directive Specifics Health Care Surrogate(s): Margot Tamanna is, per [place] stat[place] health care decision proxy. . Now in [facility] (#[phone]). Facilitation of conversations with Tamanna can be arranged through booking (#[phone]) in emergency situations to address goals of care.Ask for a Henderson on staff as shifts rotate throughout the week. Objective Vital Signs Date Time Temp Pulse Resp B/P Pulse Ox O2 Delivery O2 Flow Rate FiO2 04/02/17 10:02 96 35 04/02/17 10:00 108 04/02/17 08:00 109 04/02/17 08:00 35 04/02/17 08:00 100.2 109 18 92/62 96 04/02/17 08:00 96 Mechanical Ventilator 35 04/02/17 07:58 97 35 04/02/17 06:00 115 04/02/17 05:01 96 35 04/02/17 04:00 98 Mechanical Ventilator 35 04/02/17 04:00 35 04/02/17 04:00 124 04/02/17 02:00 118 04/02/17 00:44 100 35 04/02/17 00:00 35 04/02/17 00:00 101 04/02/17 00:00 98 Mechanical Ventilator 35 04/02/17 00:00 98.6 101 18 98/66 98 04/01/17 22:00 101 04/01/17 21:41 98 35 04/01/17 20:00 97 Mechanical Ventilator 35 04/01/17 20:00 98.8 93 18 99/65 99 04/01/17 20:00 93 04/01/17 20:00 35 04/01/17 18:00 96 04/01/17 17:39 99 35 04/01/17 16:00 97 Mechanical Ventilator 35 04/01/17 16:00 98.5 91 19 100/67 97 04/01/17 16:00 35 04/01/17 16:00 91 04/01/17 14:00 93 04/01/17 12:05 100 35 04/01/17 12:00 35 04/01/17 12:00 107 04/01/17 12:00 99 Mechanical Ventilator 35 04/01/17 12:00 99.0 107 18 92/66 99 Intake & Output 04/02/17 04/02/17 07:00 19:00 Intake Total 1972 ml Output Total 950 ml Balance 1022 ml Intake Oral 0 ml IV Total 1166 ml Tube Feeding 706 ml Other 100 ml Output Urine Total 950 ml # Bowel Movements 1 Physical Exam CONSTITUTIONAL/GENERAL: This is an thin, pale appearing patient, in no apparent distress. TUBES/LINES/DRAINS: ETT, OG, Left IJ central line, Dobbhoff tube, Johns, rectal tube, SCDs. SKIN: Red rash on face. Ecchymosis bilateral UEs. Skin temperature appropriate. Not diaphoretic. ENT: Unable to assess hearing. Nose without bleeding or purulent drainage. Throat difficult to visualize due to tubes. NECK: Trachea midline. CARDIOVASCULAR: Regular rate and rhythm without murmurs, gallops, or rubs. No JVD. Peripheral pulses symmetric. RESPIRATORY/CHEST: Symmetric, unlabored respirations. Coarse rhonchi anteriorly. GASTROINTESTINAL: Abdomen soft, non-tender, nondistended.hepato-splenomegaly, Bowel sounds sluggish GENITOURINARY: Without palpable bladder distension. Johns catheter in place. Erythema groin area. MUSCULOSKELETAL: Generalized edema noted. No mottling or clubbing. NEUROLOGICAL: - not awake nor following commands PSYCHIATRIC: unable to assess . Diagnostic Tests Laboratory Laboratory Tests Test 4/29/17 4/30/17 5/1/17 17:00 04:24 03:45 Lipase 131 U/L (73-393) White Blood Count 8.3 TH/MM3 8.7 TH/MM3 (4.0-11.0) (4.0-11.0) Red Blood Count 2.61 MIL/MM3 2.59 MIL/MM3 (4.50-5.90) (4.50-5.90) Hemoglobin 9.1 GM/DL 9.1 GM/DL (13.0-17.0) (13.0-17.0) Hematocrit 26.5 % 26.9 % (39.0-51.0) (39.0-51.0) Mean Corpuscular Volume 101.6 FL 103.9 FL (80.0-100.0) (80.0-100.0) Mean Corpuscular Hemoglobin 34.9 PG 35.2 PG (27.0-34.0) (27.0-34.0) Mean Corpuscular Hemoglobin 34.3 % 33.9 % Concent (32.0-36.0) (32.0-36.0) Red Cell Distribution Width 15.8 % 16.2 % (11.6-17.2) (11.6-17.2) Platelet Count 185 TH/MM3 177 TH/MM3 (150-450) (150-450) Mean Platelet Volume 8.6 FL 8.3 FL (7.0-11.0) (7.0-11.0) Neutrophils (%) (Auto) 77.8 % 78.3 % (16.0-70.0) (16.0-70.0) Lymphocytes (%) (Auto) 14.9 % 15.1 % (9.0-44.0) (9.0-44.0) Monocytes (%) (Auto) 5.5 % (0.0-8.0) 5.2 % (0.0-8.0) Eosinophils (%) (Auto) 1.3 % (0.0-4.0) 1.0 % (0.0-4.0) Basophils (%) (Auto) 0.5 % (0.0-2.0) 0.4 % (0.0-2.0) Neutrophils # (Auto) 6.4 TH/MM3 6.8 TH/MM3 (1.8-7.7) (1.8-7.7) Lymphocytes # (Auto) 1.2 TH/MM3 1.3 TH/MM3 (1.0-4.8) (1.0-4.8) Monocytes # (Auto) 0.5 TH/MM3 0.4 TH/MM3 (0-0.9) (0-0.9) Eosinophils # (Auto) 0.1 TH/MM3 0.1 TH/MM3 (0-0.4) (0-0.4) Basophils # (Auto) 0.0 TH/MM3 0.0 TH/MM3 (0-0.2) (0-0.2) CBC Comment DIFF FINAL DIFF FINAL Differential Comment Sodium Level 135 MEQ/L 136 MEQ/L (136-145) (136-145) Potassium Level 3.6 MEQ/L 3.5 MEQ/L (3.5-5.1) (3.5-5.1) Chloride Level 105 MEQ/L 105 MEQ/L (98-107) (98-107) Carbon Dioxide Level 19.9 MEQ/L 18.8 MEQ/L (21.0-32.0) (21.0-32.0) Anion Gap 10 MEQ/L (5-15) 12 MEQ/L (5-15) Blood Urea Nitrogen 18 MG/DL (7-18) 15 MG/DL (7-18) Creatinine 0.92 MG/DL 0.82 MG/DL (0.60-1.30) (0.60-1.30) Estimat Glomerular Filtration 84 ML/MIN (>89) 96 ML/MIN (>89) Rate Random Glucose 104 MG/DL 148 MG/DL (74-106) (74-106) Calcium Level 7.7 MG/DL 7.7 MG/DL (8.5-10.1) (8.5-10.1) Total Bilirubin 1.9 MG/DL 1.9 MG/DL (0.2-1.0) (0.2-1.0) Aspartate Amino Transf 100 U/L (15-37) 138 U/L (15-37) (AST/SGOT) Alanine Aminotransferase 22 U/L (12-78) 26 U/L (12-78) (ALT/SGPT) Alkaline Phosphatase 110 U/L 148 U/L (45-117) (45-117) Total Protein 5.3 GM/DL 5.4 GM/DL (6.4-8.2) (6.4-8.2) Albumin 1.3 GM/DL 1.3 GM/DL (3.4-5.0) (3.4-5.0) Result Diagram: 04/01/1734404/01/17344 Assessment and Plan Disease Oriented Problem List: (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 Also unable to express discomfort (2) Dyspnea 0-10 Scale: Unable to quantify (remains with an nasal canula. 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 Spiritual: No reported Legal: Margot Nolen is, per [facility] care decision proxy. She is currently incarcerated at the [facility]. They are permitting her to participate in decisions at this time. At some future point she will be moved to the [facility]. Ethical issues impacting care: Important Contacts * Tamanna Sandhu, daughter/ HCP: Margot Nolen is, per [facility] care decision proxy. . Now in [facility] (#[phone]). Facilitation of conversations with Tamanna can be arranged through booking (#[phone]) in emergency situations to address goals of care.Ask for a Henderson on staff as shifts rotate throughout the week. * Guillermo Roberts, daughter friend: [phone] (cell)- has frequent contact jr Holloway - has been very helpful Prognosis Prognosis: Fair. In the absence of further respiratory failure, he will likely transition to a ch[facility] facility. However, he does have end-stage liver disease. He has high risk for aspiration. He will need extensive neuro rehabilitation. due to Osmotic Demyelination Syndrome Code Status: No Code Plan * Patient is incapacitated, will not regain capacity. . According to [place] statutes, health care proxy decision making falls to his only daughter. * * NO CODE. * * Margot Nolen is, per [place] statues bam care decision proxy. . Now in [facility] (#[phone]). Facilitation of conversations with Tamanna can be arranged through booking (#[phone]) in emergency situations to address goals of care.Ask for a Lucila on staff as shifts rotate throughout the week. * * SYMPTOMS: Dyspnea: sedated and paralyzed on mech vent, FiO2 50%. Pain: on Fentanyl 150mcg drip. * * Palliative care phone number provided. * Palliative care will continue to follow to assist with symptom management and further clarification of treatment goals. . Attestation To help prompt me to consider important information that might be impacting today's encounter and assessment, information from prior notes written by myself or my colleagues may have been "brought forward" into today's note. My signature on this note, however, is an attestation that I personally performed the exam, history, and/or decision-making noted today, and, unless otherwise indicated, the interactions with patient, family, and staff as well as the review of records all occurred today. I also attest that the listed assessment and stated plan reflect my best clinical judgment today based on the combination of historical information, prior notes, and today's exam/ interactions. When time spent is documented, it refers only to time spent today by the signer, or if indicated, combined time spent today by collaborating physician/nurse practitioner. Rocío John April 02, 2017 11:39
--- NOTE | 2017-04-02 20:59 | HHI.CCPN ---
Subjective Remarks/Hospital Course This is a 61-year-old male with a past history of alcohol abuse and a prior admission in 2015 for severe life-threatening hyponatremia at that time with a serum sodium of 98. He presents today with what he states is a 13 day history of worsening fatigue and weakness. He is very altered and is very difficult to understand the patient. What I can understand from him, is that at some point during these 13 days he has fallen and hit his face. Otherwise he states he lays on the couch, and has not gotten not much. He states he drinks 1 beer in the morning, and 1 beer in the afternoon. He does endorse taking some Xanax to help him sleep. He denies other drug use. He denies chest pain, shortness of breath, fever, chills, nausea, vomiting, abdominal pain. It is very difficult to get him to answer anymore questions about his medical history. His speech is very slurred and he is trying to talk about how he misses his daughter. Emergency department he was found to have a serum sodium of 99, a bilirubin of 8.9, lactate of 9.8, ammonia of 60, CK of 7000, elevated troponin of 4.9 with a normal MB ratio, creatinine 1.5, serum bicarbonate of 13. His white count is 12 , platelets 112. INR 1.9. His MELD calculates at 26. 4/2: Sodium level rapidly corrected overnight, likely secondary to appropriate correction of severe life-threatening dehydration. NS fluids changed to 1/2NS and correction slowed down significantly. sodium up to 130 this AM. CK downtrending. however, patient remains severely hypotensive requiring Levophed to maintain a map > 65 mmHg. This AM, serum K 1.6 (confirmed). started replacement with 200meq KCl and recheck K. 03/04: persists in vasoplegic distributive shock. afebrile. no evidence of infection. wbc downtrending. persists with severe life-threatening electrolyte derangements. passed swallow eval for nectar thick liquids. sodium stable at 131. ck downtrending. 03/05: persists in distributive shock. echo yesterday with EF 30%, globally decreased function. milrinone added yesterday with improvement in vasopressor requirement. still with multiple electrolyte abnormalities despite very aggressive replacement. very poor appetite. sodium stable at 131, which appears to be around baseline for him, looking back at prior records. also became agitated and delirious yesterday, likely secondary to etoh withdraw. started on Ativan and Librium. 03/06: electrolyte derangements persist. placed on continuous NaPhos infusion x 24h due to severe life-threatening hypophosphatemia. serial K, phos checks. weaning off levophed, milrinone persists. still poor appetite. sodium jumped from 132 to 139, but no significant mental status change, and we did not increase sodium load. 03/07: still requiring high electrolyte replacement. milrinone weaned to 0.375 mcg /kg/min overnight. still doing well with that. delirium persists. 03/08 Remains on milrinone. Electrolyte improving. Remains very lethargic, intermittently follows commands 03/09: Continues to be lethargic but wakes up follows some commands. Remains on milrinone will DC today. T max 100.1, urine output adequate sodium is 143 03/10: More awake alert, ate 50% of break fast. Will DC Dobhoff. Discontinue arterial and central lines. Delirium also improved, remains weak 03/11: doing much better this morning. no complaints. still with poor appetite. electrolytes improved. 03/20: We consulted for respiratory failure. Patient was last seen in room 1415 CMP receiving oral cares and became acutely hypoxic saturations 82% with coarse breath sounds. Halicat called. Patient was placed on a Venturi mask 50 % with desaturations to the mid 90s. He received Solu-Medrol 20 mg IV 1, Lasix 40 mg IV 1 and was transferred IM [facility] 521. Hemodynamically stable. Poor mentation 03/25: Reconsulted due to respiratory failure. Patient with gurgling/ transmitted upper airway sounds. Respiration the 50s. Decision made to orotracheally intubate. Noted to have been febrile with increased O2 course over the past 48 hours. 03/26: Afebrile. Requiring Nimbex drip for ventilator synchrony. Decreased urine output noted. Hemoglobin decreased likely dilutional. Tolerating tube feeding. Electrolytes been replaced. 03/27: Tmax 100.9. Currently 97.2. +6 L past 24 hours. Hemoglobin 8 transfuse overnight. Potassium 3. We'll discontinue Nimbex drip for vent synchrony today. 03/28: Afebrile. Negative fluid balance past 24 hours. Hemoglobin currently 9. Potassium 3.0. Currently on sedation vacation positive gag and otherwise unresponsive. 03/29: Tmax 103. Currently afebrile. Not tolerating tube feeds. Remains on Kiran-Synephrine. Did not tolerate sedation vacation back on Versed at 5 mg an hour fentanyl drip at 100 mcg an hour. One bowel movement. 03/30 Tube feeds remain on hold. On neosynephrine 40 mcg/min, RN states she has been weaning. Having BMs. On Versed 8 mg/hr and fentanyl 100 mcg/hr. 03/31 Off versed. Remains on fentanyl 100 mcg/hr. Having hiccups. Still on neosynephrine 40 mcg/min. Tolerating trickle feeds. Had 2 bowel movements 04/01: no meaningful change. still requires fentanyl for sedation. still on low- dose vasopressors. Subjective: 04/02: no changes. still on levo @ 7 mcg/min. unable to wean off fentanyl due to tachycardia and tachypnea. Objective Vital Signs Date Time Temp Pulse Resp B/P Pulse Ox O2 Delivery O2 Flow Rate FiO2 04/02/17 18:00 102 04/02/17 16:00 96 Mechanical Ventilator 35 04/02/17 16:00 99.2 19 101/65 Intake and Output 04/01/17 04/01/17 04/02/17 08:00 16:00 00:00 Intake Total 1428 ml 1700 ml 1267 ml Output Total 500 ml 550 ml 650 ml Balance 928 ml 1150 ml 617 ml Result Diagram: 04/01/17 0345 04/01/17 0345 Imaging Last Impressions Chest X-Ray 03/29/17 0600 Signed Impressions: Service Date/Time: Wednesday, March 29, 2017 05:09 - CONCLUSION: No significant change bibasilar consolidation and small effusions. Casper Clifton MD Head Magnetic Resonance Angiography 03/28/17 0000 Signed Impressions: Service Date/Time: March 17:22 - CONCLUSION: Unremarkable examination. Bety Castillo MD Brain MRI 03/28/17 0000 Signed Impressions: Service Date/Time: March 17:22 - CONCLUSION: 1. 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 Small subacute ischemic bilateral thalamic infarcts. 2. There has been no significant change when compared to the prior exam. Yinka Harman MD Lower Extremity Ultrasound 03/25/17 0000 Signed Impressions: Service Date/Time: Saturday, March 25, 2017 22:17 - CONCLUSION: No evidence of DVT. Víctor Rosas MD CT Angiography 03/21/17 0000 Signed Impressions: Service Date/Time: March 00:33 - CONCLUSION: No evidence of pulmonary embolism is identified. Mild atelectasis left lung base. Fluid or phlegm within the trachea. Milo Muhammad MD Abdomen X-Ray 03/20/17 0000 Signed Impressions: Service Date/Time: Monday, March 20, 2017 18:12 - CONCLUSION: Tip of the Dobbhoff tube projecting towards the pylorus. Cheo Barrera Jr., MD Abdomen Ultrasound 03/20/17 0000 Signed Impressions: Service Date/Time: Monday, March 20, 2017 11:38 - CONCLUSION: 1. Hepatosplenomegaly without focal lesion. 2. Probable sludge within the lumen of the gallbladder. No intrahepatic duct. Cheo Martínez MD Shoulder X-Ray 03/02/17 1404 Signed Impressions: Service Date/Time: Thursday, March 02, 2017 15:18 - CONCLUSION: No evidence of recent bony injury. Deformity of the lateral left clavicle suggests old healed trauma. Cheo Martínez MD Maxillofacial CT 03/02/17 1342 Signed Impressions: Service Date/Time: Thursday, March 02, 2017 14:52 - CONCLUSION: Negative CT of the facial bones. Cheo Martínez MD Head CT 03/02/17 1342 Signed Impressions: Service Date/Time: Thursday, March 02, 2017 14:52 - CONCLUSION: 1. Prominent scalp swelling left frontal and parietal region. No skull fracture seen. 2. Intracranial contents are intact without acute finding. Cheo Martínez MD Chest CT 03/02/17 1342 Signed Impressions: Service Date/Time: Thursday, March 02, 2017 15:04 - CONCLUSION: 1. Abnormal appearance of the lateral left clavicle suggesting a combination of acute and chronic bony injury. Fracture lucencies without bridging callus is seen the region of the coracoid process. 2. The lungs are clear. No evidence of pneumothorax. 3. Moderate size hiatus hernia. Cheo Martínez MD Cervical Spine CT 03/02/17 1342 Signed Impressions: Service Date/Time: Thursday, March 02, 2017 14:52 - CONCLUSION: Negative CT cervical spine. Cheo Martínez MD Abdomen/Pelvis CT 03/02/17 1342 Signed Impressions: Service Date/Time: Thursday, March 02, 2017 15:04 - CONCLUSION: Moderate size hiatus hernia. Scattered small sigmoid diverticula. Otherwise negative exam. Cheo Martínez MD Objective Remarks GENERAL: 61-year-old chronically ill appearing male, currently critically ill, orotracheally intubated. HEENT: Healing abrasion left side scalp. TIMOTHY. Scleral icterus. Very poor dentition. NECK: Trachea Midline RESP: Coarse breath sounds bilaterally. Few wheezes. CARDIOVASCULAR: Tachycardia, RR. ABDOMEN: Slightly distended but soft, bowel sounds present, tolerating trickle tube feeds. : Johns in place with conrad urine output. mild/moderate scrotal edema. MUSCULOSKELETAL: No obvious deformity. 1+ edema all extremities NEUROLOGICAL: + gag and cough. No eye contact or response to visual threat. No motor response to deep noxious stimuli. Date of Insertion: Mar 25, 2017 Line: Central Venous Catheter Side: Left Location: Internal A/P Assessment and Plan Neuro/Psych: Osmotic demyelination syndrome Acute toxic metabolic encephalopathy secondary to hypercarbic respiratory failure Alcohol dependence History of EtOH induced seizure withdrawal Chronic benzodiazepine use Off versed since 03/30. Remains on fentanyl 100 mcg an hour drips for sedation/ analgesia. oxycodone 5 mg q6 prn pain. zyprexa 5mg po q8hr haldol 5mg iv q4h prn for breakthrough wean off fentanyl. Goal of RASS 0 MRI 03/21 - T1/T2 prolonged with sparing of this central appears final fibers. 2 small spots in the posterior central spinal tract consistent with Osmotic demyelination syndrome. ODS most likely from correction of Na, with underlying alcoholism. MRI brain 03/28 revealed subacute bilateral thalamic lacunar infarcts, CPM. CT head 03/05 revealed no acute intracranial findings Continue thiamine/folate and multivitamin. Seen by neurology/Dr. Mazariegos. Respiratory: Acute hypoxemic hypercapnic respiratory failure PRVC 16/550/1.02/14/40 Ventilator bundle Bronchodilator therapy every 4 hours and as needed Duoneb q 6hours Thorazine 03/31 for hiccups. Cardiovascular: Chronic Systolic heart failure Lactic acidosis Echocardiogram 03/04 revealed EF 35-40%. Mild mR. Left atrium dilated. JANE 33 mmHg TSH within normal limits 0.8 try empiric hydrocortisone 50mg iv q6h for possible adrenal insufficiency continue to wean levo for goal map > 65 start midodrine to help wean off pressors. Renal: Acute Kidney Injury- Rhabdomyolysis- resolved ODS-see neuro Accurate I's and O's Monitor urine output closely. Adequate past 24 hours Follow BMP in a.m. saline lock mivf. GI: EtOH cirrhosis Hyperammonemia Hiatal hernia Sigmoid diverticulosis History of umbilical hernia repair Placed on Xifaxan 550 twice a day/lactulose 30 twice a day. Recheck ammonia recently 12. LFT is elevated. Ultrasound liver-hepatosplenomegaly. Sludge in gallbladder Patient on Prilosec 20 mg by mouth daily at home. Currently in IV Protonix Increase Reglan 10 every8 hours/prokinetic agent. Tolerating trickle feeds via Dobhoff so advance to goal. HAving BMs s/p Relistor 03/29. Heme: Macrocytic anemia Possibly leukemoid/stress versus aspiration Hemoglobin currently around 8. Post units 2 PRBCs overnight 03/27 Monitor CBC daily. Follow trends B12 1452, Folate 15.2. TSH 0.8. ID: Likely aspiration pneumonia Escherichia coli UTI 03/11 - completed therapy Acinetobacter pneumonia Pertinent cultures 03/29 - blood cultures 2 - NGTD 03/25 - sputum --Acinetobacter. 03/25 - urine - NGTD 03/25 - blood cultures 2 -no growth 03/22 - urine - no growth 03/22 - blood cultures 2 - negative 03/20 - blood cultures 2 - no growth 03/11 - urine - Escherichia coli 03/02 - blood cultures 2 - no growth Followed by Dr. Lisa/ID. Now on unasyn per D since 03/28, flagyl po 03/24 # 10 . sputum culture from 03/25 postive for acinetobacter, sensitive to unasyn. Endocrine: Hyperglycemia of critical illness History of hypothyroidism SSI with Accu-Cheks every 4 hours to maintain euglycemia FEN: Hyperkalemia Hypophosphatemia - resolved Replace electrolytes as clinically indicated MSK: History of old left clavicle fracture PT/OT evaluate and treat Access Left IJ TLC placed 03/25 #9 Prophylaxis: GI - Protonix DVT - SCD/heparin subcutaneous Patients overall prognosis appears poor with cirrhosis, cardiomyopathy, severe hyponatremia (dating back to 2014), now with evidence of osmotic demyelination following correction of severe life threatening hypovolemic shock. He is encephalopathic and not able to participate in decision making regarding goals of care. Palliative care medicine following, note reviewed Tamanna Sandhu, daughter/ HCP: from [facility] [phone] now confirmed transferred to [facility] in [facility] ) this week. She elected DNR status. Code status - DNR. Per. Dr. Ruby: Discussed with his [id number] Joanna Sandhu. Patient has 1 brother in close contact/also an alcoholic and 2 sisters whom he does not keep contact with. If daughter iban unwilling to make further medical decisions would fall back to 1 brother who likely would withdrawal care. [id number] Joanna will leave phone numbers of brother and 2 sisters with David Roche/Tu Goldstein MD April 02, 2017 20:58
[2017-04-02] MEDS: HYDROCORTISONE SOD SUCCINATE 100 MG VIAL IV PUSH SCH (21:14)
[2017-04-03] VITALS (34 sets, daily range): BP systolic 79–121; BP diastolic 59–85; PULSE 80–114; RESP 17–22; TEMP 97.3–98.8; O2SAT 93–100
[2017-04-03] MEDS: HYDROCORTISONE SOD SUCCINATE 100 MG VIAL IV PUSH SCH ×4 (00:02→17:51)
[2017-04-03] MEDS: RESP: ALBUTEROL 2.5 MG/IPRATROPIUM 0.5 MG NEB (SCH) NEB ×4 (04:13→20:33)
[2017-04-03] MEDS: INSULIN NovoLIN REGULAR SUPPLEMENTAL SCALE SQ SCH ×6 (04:32→20:49)
[2017-04-03] MEDS: OLANZapine ODT 10 MG TAB PO SCH ×3 (05:34→20:50)
[2017-04-03] MEDS: HEPARIN SODIUM - SQ 10,000 UNITS/ML VIAL SQ SCH ×3 (05:34→20:52)
[2017-04-03] MEDS: AMPICILLIN-SULBACTAM INJ 3 GM in SODIUM CHLORIDE 0.9% INJ 100 ML IV SCH ×4 (05:34→22:22)
[2017-04-03] MEDS: METOCLOPRAMIDE HCL 10 MG/2 ML VIAL IV PUSH SCH ×3 (05:34→20:50)
[2017-04-03] MEDS: metroNIDAZOLE 500 MG TAB PO SCH ×3 (05:34→20:51)
[2017-04-03] MEDS: MIDODRINE 5 MG TAB PO SCH ×3 (05:34→21:14)
[2017-04-03] MEDS: RESP: TOBRAMYCIN SULFATE 80 MG/2 ML NEB NEB SCH ×2 (07:54→20:33)
[2017-04-03] MEDS: THIAMINE INJ 100 MG in SODIUM CHLORIDE 0.9% INJ 100 ML IV SCH (08:01)
[2017-04-03] MEDS: RIFAXIMIN 550 MG TAB PO SCH ×2 (08:01→20:51)
[2017-04-03] MEDS: CHLORHEXIDINE 0.12% (ORAL KIT) 15 ML CUP MT SCH ×2 (08:01→20:48)
[2017-04-03] MEDS: LACTULOSE SYRUP 20 GM/30 ML CUP PO SCH ×2 (08:01→20:50)
[2017-04-03] MEDS: ARTIFICIAL TEARS OPTH SOLN 15 ML BTL EACH EYE SCH ×3 (08:01→16:07)
[2017-04-03] MEDS: LACTOBACILLUS ACIDOPHILUS TAB PO SCH ×3 (08:02→17:51)
[2017-04-03] MEDS: PANTOPRAZOLE SODIUM 40 MG VIAL IV SCH (08:02)
[2017-04-03] MEDS: SODIUM CHLORIDE 0.9% FLUSH 10 ML FLUSH IV FLUSH SCH ×2 (08:02→20:50)
[2017-04-03] MEDS: MUPIROCIN 2% OINT 1 APPLIC/GM SYR EACH NARE SCH ×2 (08:02→20:49)
[2017-04-03] MEDS: fentaNYL DRIP 250 ML IV SCH (08:03)
[2017-04-03] MEDS: DOCUSATE SODIUM 100 MG CAP PO SCH (08:40)
[2017-04-03] MEDS: SODIUM CHLORIDE 0.9% FLUSH 10 ML FLUSH IVF SCH (08:40)
[2017-04-03] MEDS: NOREPINEPHRINE-DEXTROSE DRIP 250 ML IV SCH (13:39)
--- NOTE | 2017-04-03 15:26 | HHI.IDPN ---
Subjective Subjective Remarks Notes reviewed D/W RN Temps better On the vent Awake, he followed some simple commands for me On levophed Antibiotics Unasyn Flagyl Tobra nebs Lines [facility] Past Medical History ETOHism Allergies: Coded Allergies: PEANUTS (Unverified Allergy, Severe, 03/02/17) *MDRO Multi-Drug Resistant Organism (Verified Adverse Reaction, Unknown, ) MRSA PCR screen POSITIVE - 03/02/17 MDR Acinetobacter (sputum) - 03/25/17 Objective . Vital Signs Date Time Temp Pulse Resp B/P Pulse Ox O2 Delivery O2 Flow Rate FiO2 04/03/17 14:00 92 04/03/17 13:20 96 35 04/03/17 12:00 97.6 04/03/17 12:00 35 04/03/17 12:00 84 04/03/17 11:15 82 18 110/71 94 04/03/17 11:00 82 18 110/71 95 04/03/17 10:45 82 18 108/70 94 04/03/17 10:30 87 18 104/68 95 04/03/17 10:15 85 17 110/73 95 04/03/17 10:00 88 04/03/17 10:00 88 18 109/69 95 04/03/17 09:45 88 18 105/72 94 04/03/17 09:30 90 18 107/70 94 04/03/17 09:15 91 18 107/70 94 04/03/17 09:00 93 18 106/65 93 04/03/17 08:45 91 18 105/65 94 04/03/17 08:30 88 18 118/76 99 04/03/17 08:15 84 18 103/65 96 04/03/17 08:00 80 18 110/68 94 04/03/17 08:00 80 04/03/17 08:00 35 04/03/17 07:55 95 35 04/03/17 06:00 84 04/03/17 04:13 96 35 04/03/17 04:00 35 04/03/17 04:00 96 Mechanical Ventilator 35 04/03/17 04:00 98.6 83 18 96/62 96 04/03/17 04:00 83 04/03/17 02:00 95 04/03/17 01:00 96 35 04/03/17 00:00 98.8 93 18 91/59 96 04/03/17 00:00 35 04/03/17 00:00 93 04/03/17 00:00 95 Mechanical Ventilator 35 04/02/17 22:00 112 04/02/17 21:00 98 35 04/02/17 20:00 96 Mechanical Ventilator 35 04/02/17 20:00 35 04/02/17 20:00 119 04/02/17 20:00 98.8 119 18 100/70 98 04/02/17 18:00 102 04/02/17 16:00 96 Mechanical Ventilator 35 04/02/17 16:00 115 04/02/17 16:00 35 04/02/17 16:00 99.2 115 19 101/65 96 04/02/17 15:58 96 35 04/02/17 04/02/17 04/03/17 15:00 23:00 07:00 Intake Total 1327 ml 918 ml 512 ml Output Total 250 ml 300 ml 250 ml Balance 1077 ml 618 ml 262 ml Intake Oral 0 ml 0 ml IV Total 597 ml 561 ml 248 ml Tube Feeding 580 ml 357 ml 264 ml Tube Irrigant 150 ml Output Urine Total 250 ml 300 ml 250 ml # Bowel Movements 1 0 Imaging Chest X-Ray 03/27/17 0600 Signed Impressions: Service Date/Time: Monday, March 27, 2017 02:33 - CONCLUSION: No significant interval change. Víctor Rosas MD Chest X-Ray 03/26/17 0600 Signed Impressions: Service Date/Time: Sunday, March 26, 2017 05:35 - CONCLUSION: Improving bilateral pulmonary infiltrates Víctor Rosas MD Chest X-Ray 03/25/17 1004 Signed Impressions: Service Date/Time: Saturday, March 25, 2017 10:03 - CONCLUSION: 1. Worsening bibasilar consolidation. 2. Endotracheal tube with tip at the thoracic inlet and should be advanced at least 3-4 cm. 3. Adequate placement of left jugular central line without pneumothorax. Logan Morgan MD Chest X-Ray 03/26/17 0600 Signed Impressions: Service Date/Time: Sunday, March 26, 2017 05:35 - CONCLUSION: Improving bilateral pulmonary infiltrates Víctor Rosas MD Lower Extremity Ultrasound 03/25/17 0000 Signed Impressions: Service Date/Time: Saturday, March 25, 2017 22:17 - CONCLUSION: No evidence of DVT. Víctor Rosas MD CT Angiography 03/21/17 0000 Signed Impressions: Service Date/Time: March 00:33 - CONCLUSION: No evidence of pulmonary embolism is identified. Mild atelectasis left lung base. Fluid or phlegm within the trachea. Milo Muhammad MD Brain MRI 03/20/17 0000 Signed Impressions: Service Date/Time: Monday, March 20, 2017 16:11 - CONCLUSION: Abnormal appearance to the ruthy with some extension into the cortical spinal tracts of the posterior thalamus was bilaterally. 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 Cheo Martínez MD Abdomen X-Ray 03/20/17 0000 Signed Impressions: Service Date/Time: Monday, March 20, 2017 18:12 - CONCLUSION: Tip of the Dobbhoff tube projecting towards the pylorus. Cheo Barrera Jr., MD Abdomen Ultrasound 03/20/17 0000 Signed Impressions: Service Date/Time: Monday, March 20, 2017 11:38 - CONCLUSION: 1. Hepatosplenomegaly without focal lesion. 2. Probable sludge within the lumen of the gallbladder. No intrahepatic duct. Cheo Martínez MD Shoulder X-Ray 03/02/17 1404 Signed Impressions: Service Date/Time: Thursday, March 02, 2017 15:18 - CONCLUSION: No evidence of recent bony injury. Deformity of the lateral left clavicle suggests old healed trauma. Cheo Martínez MD Maxillofacial CT 03/02/17 1342 Signed Impressions: Service Date/Time: Thursday, March 02, 2017 14:52 - CONCLUSION: Negative CT of the facial bones. Cheo Martínez MD Head CT 03/02/17 1342 Signed Impressions: Service Date/Time: Thursday, March 02, 2017 14:52 - CONCLUSION: 1. Prominent scalp swelling left frontal and parietal region. No skull fracture seen. 2. Intracranial contents are intact without acute finding. Cheo Martínez MD Chest CT 03/02/17 1342 Signed Impressions: Service Date/Time: Thursday, March 02, 2017 15:04 - CONCLUSION: 1. Abnormal appearance of the lateral left clavicle suggesting a combination of acute and chronic bony injury. Fracture lucencies without bridging callus is seen the region of the coracoid process. 2. The lungs are clear. No evidence of pneumothorax. 3. Moderate size hiatus hernia. Cheo Martínez MD Cervical Spine CT 03/02/17 1342 Signed Impressions: Service Date/Time: Thursday, March 02, 2017 14:52 - CONCLUSION: Negative CT cervical spine. Cheo Martínez MD Abdomen/Pelvis CT 03/02/17 1342 Signed Impressions: Service Date/Time: Thursday, March 02, 2017 15:04 - CONCLUSION: Moderate size hiatus hernia. Scattered small sigmoid diverticula. Otherwise negative exam. Cheo Martínez MD Chest X-Ray 03/25/17 1004 Signed Impressions: Service Date/Time: Saturday, March 25, 2017 10:03 - CONCLUSION: 1. Worsening bibasilar consolidation. 2. Endotracheal tube with tip at the thoracic inlet and should be advanced at least 3-4 cm. 3. Adequate placement of left jugular central line without pneumothorax. Logan Morgan MD Chest X-Ray 03/23/17 0000 Signed Impressions: Service Date/Time: Thursday, March 23, 2017 14:27 - CONCLUSION: 1. Feeding tube in place with what appears to be a loop in the hypopharynx. 2. Bibasilar areas of consolidation or atelectasis. Casper Vargas MD Physical Exam GENERAL: awake, on the vent, not in distress. Followed some commands SKIN: Warm and dry. No generalized rash. Has some edema in his upper extremities. HEENT: Pupils equal round and reactive. Orally intubated. Poor dentition. A lot of oral secretions NECK: Supple, nontender, no meningeal signs. CARDIOVASCULAR: Regular rate and rhythm without murmurs, gallops, or rubs. Tachycardic. RESPIRATORY: Has few scattered rhonchi, decreased BS at bases GASTROINTESTINAL: Abdomen mildly distended, bowel sounds are present and normoactive, no reaction to palpation MUSCULOSKELETAL: Lower extremities without clubbing, cyanosis, or edema. No joint effusion. NEUROLOGICAL: Sedated. PSYCH: Unable to assess : Johns cath in place, urine looks better LINE: central line site ok Assessment & Plan Remarks IMPRESSION Sepsis syndrome, due to PNA - on vent - has MDR Acinetobacter Septic shock Known ETOH abuse Encephalopathy - sepsis, ETOH, CPM Respiratory failure Diarrhea, C diff negative RECOMMENDATION Continue Unasyn for MDR Acinetobacter Add Tobra nebs x 7 days Continue Flagyl for now Repeat sputum G/S C/S Follow temps Monitor progress Follow new C/S D/W Umm Lui MD April 03, 2017 15:26
--- NOTE | 2017-04-03 17:26 | HHI.HCPN ---
Reason for visit a. To assist with evaluation and management of symptoms including: dyspnea, pain. b. To assist medical decision maker(s) with: better understanding of current medical conditions; weighing benefits/burdens of medical treatment options; making medical treatment decisions. . Subjective/Interval History Patient seen and examined in ICU. Discussed with Dr. Ruby and nurse, Tori. Specialty Molder requests trach/PEG decision in this patient with poor prognosis. No family at bedside. Patient is laying in bed with eyes open. Does not track or follow commands. Afebrile. Vital signs stable. [facility] does not appear he will be weaned from vent. No new labs or imaging today. . Family/friend interactions Spoke with daughter Amie/ HCP (in [facility]) to provide medical update. She understands patient is not likely to survive this hospitalization. We discussed continued aggressive care vs transition to comfort measure. She does not want trach/PEG, she would like to see if we can assist in getting permission for her to come to say good-bye. I agreed we would write a letter for her to try or I will bring the phone into room for her to say her good-byes she is appropriately tearful. . Advance Directives Living Will: Never completed Health Care Surrogate: Never completed Durable Power of Silk Screen Processor: Never completed Advance Directive Specifics Health Care Surrogate(s): Margot Nolen is, per [place] statues bam care decision proxy. . Now in [facility] (#[phone]). Facilitation of conversations with Tamanna can be arranged through booking (#[phone]) in emergency situations to address goals of care.Ask for a [place] on staff as shifts rotate throughout the week. Significant change in goals: NO CODE. NO trach or PEG, plan to transition to comfort and withdrawal of life support, timing to be determined. . Objective Vital Signs Date Time Temp Pulse Resp B/P Pulse Ox O2 Delivery O2 Flow Rate FiO2 04/03/17 16:18 98 35 04/03/17 14:00 92 04/03/17 13:20 96 35 04/03/17 12:00 97.6 04/03/17 12:00 35 04/03/17 12:00 84 04/03/17 11:15 82 18 110/71 94 04/03/17 11:00 82 18 110/71 95 04/03/17 10:45 82 18 108/70 94 04/03/17 10:30 87 18 104/68 95 04/03/17 10:15 85 17 110/73 95 04/03/17 10:00 88 04/03/17 10:00 88 18 109/69 95 04/03/17 09:45 88 18 105/72 94 04/03/17 09:30 90 18 107/70 94 04/03/17 09:15 91 18 107/70 94 04/03/17 09:00 93 18 106/65 93 04/03/17 08:45 91 18 105/65 94 04/03/17 08:30 88 18 118/76 99 04/03/17 08:15 84 18 103/65 96 04/03/17 08:00 80 18 110/68 94 04/03/17 08:00 80 04/03/17 08:00 35 04/03/17 07:55 95 35 04/03/17 06:00 84 04/03/17 04:13 96 35 04/03/17 04:00 35 04/03/17 04:00 96 Mechanical Ventilator 35 04/03/17 04:00 98.6 83 18 96/62 96 04/03/17 04:00 83 04/03/17 02:00 95 04/03/17 01:00 96 35 04/03/17 00:00 98.8 93 18 91/59 96 04/03/17 00:00 35 04/03/17 00:00 93 04/03/17 00:00 95 Mechanical Ventilator 35 04/02/17 22:00 112 04/02/17 21:00 98 35 04/02/17 20:00 96 Mechanical Ventilator 35 04/02/17 20:00 35 04/02/17 20:00 119 04/02/17 20:00 98.8 119 18 100/70 98 04/02/17 18:00 102 Intake & Output 04/03/17 04/03/17 07:00 19:00 Intake Total 1430 ml 1112 ml Output Total 550 ml 350 ml Balance 880 ml 762 ml Intake Oral 0 ml IV Total 809 ml 404 ml Tube Feeding 621 ml 468 ml Other 240 ml Output Urine Total 550 ml 350 ml # Bowel Movements 1 3 Physical Exam CONSTITUTIONAL/GENERAL: This is an thin, pale, critically ill, appearing patient , in no apparent distress. TUBES/LINES/DRAINS: ETT, OG, Left IJ central line, Johns, rectal tube, SCDs. SKIN: Red rash on face. Ecchymosis bilateral UEs. Skin temperature appropriate. Not diaphoretic. CARDIOVASCULAR: Regular rate and rhythm without murmurs, gallops, or rubs. No JVD. Peripheral pulses symmetric. RESPIRATORY/CHEST: Symmetric, unlabored respirations. Coarse rhonchi anteriorly. GASTROINTESTINAL: Abdomen soft, non-tender, nondistended.hepato-splenomegaly, Bowel sounds sluggish GENITOURINARY: Without palpable bladder distension. Johns catheter in place. Erythema groin area. MUSCULOSKELETAL: Generalized edema noted. No mottling or clubbing. NEUROLOGICAL: - not awake nor following commands PSYCHIATRIC: unable to assess . Diagnostic Tests Laboratory Laboratory Tests Test 04/01/17 03:45 White Blood Count 8.7 TH/MM3 (4.0-11.0) Red Blood Count 2.59 MIL/MM3 (4.50-5.90) Hemoglobin 9.1 GM/DL (13.0-17.0) Hematocrit 26.9 % (39.0-51.0) Mean Corpuscular Volume 103.9 FL (80.0-100.0) Mean Corpuscular Hemoglobin 35.2 PG (27.0-34.0) Mean Corpuscular Hemoglobin 33.9 % Concent (32.0-36.0) Red Cell Distribution Width 16.2 % (11.6-17.2) Platelet Count 177 TH/MM3 (150-450) Mean Platelet Volume 8.3 FL (7.0-11.0) Neutrophils (%) (Auto) 78.3 % (16.0-70.0) Lymphocytes (%) (Auto) 15.1 % (9.0-44.0) Monocytes (%) (Auto) 5.2 % (0.0-8.0) Eosinophils (%) (Auto) 1.0 % (0.0-4.0) Basophils (%) (Auto) 0.4 % (0.0-2.0) Neutrophils # (Auto) 6.8 TH/MM3 (1.8-7.7) Lymphocytes # (Auto) 1.3 TH/MM3 (1.0-4.8) Monocytes # (Auto) 0.4 TH/MM3 (0-0.9) Eosinophils # (Auto) 0.1 TH/MM3 (0-0.4) Basophils # (Auto) 0.0 TH/MM3 (0-0.2) CBC Comment DIFF FINAL Differential Comment Sodium Level 136 MEQ/L (136-145) Potassium Level 3.5 MEQ/L (3.5-5.1) Chloride Level 105 MEQ/L (98-107) Carbon Dioxide Level 18.8 MEQ/L (21.0-32.0) Anion Gap 12 MEQ/L (5-15) Blood Urea Nitrogen 15 MG/DL (7-18) Creatinine 0.82 MG/DL (0.60-1.30) Estimat Glomerular Filtration 96 ML/MIN (>89) Rate Random Glucose 148 MG/DL (74-106) Calcium Level 7.7 MG/DL (8.5-10.1) Total Bilirubin 1.9 MG/DL (0.2-1.0) Aspartate Amino Transf 138 U/L (15-37) (AST/SGOT) Alanine Aminotransferase 26 U/L (12-78) (ALT/SGPT) Alkaline Phosphatase 148 U/L (45-117) Total Protein 5.4 GM/DL (6.4-8.2) Albumin 1.3 GM/DL (3.4-5.0) Result Diagram: 04/01/175 04/01/17 034 Imaging Last Impressions Chest X-Ray 03/30/17 06 Signed Impressions: Service Date/Time: Thursday, March 30, 2017 01:30 - CONCLUSION: No significant change. Bilateral infiltrates and small pleural effusions persist. Casper Clifton MD Abdomen X-Ray 03/30/17 0600 Signed Impressions: Service Date/Time: Thursday, March 30, 2017 01:32 - CONCLUSION: Nonobstructive bowel gas pattern. Dobbhoff feeding tube tip at the level of the third portion of the duodenum. Casper Clifton MD Head Magnetic Resonance Angiography 03/28/17 0000 Signed Impressions: Service Date/Time: March 17:22 - CONCLUSION: Unremarkable examination. Bety Castillo MD Brain MRI 03/28/17 0000 Signed Impressions: Service Date/Time: March 17:22 - CONCLUSION: 1. 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 Small subacute ischemic bilateral thalamic infarcts. 2. There has been no significant change when compared to the prior exam. Yinka Harman MD Lower Extremity Ultrasound 03/25/17 0000 Signed Impressions: Service Date/Time: Saturday, March 25, 2017 22:17 - CONCLUSION: No evidence of DVT. Víctor Rosas MD CT Angiography 03/21/17 0000 Signed Impressions: Service Date/Time: March 00:33 - CONCLUSION: No evidence of pulmonary embolism is identified. Mild atelectasis left lung base. Fluid or phlegm within the trachea. Milo Muhammad MD Abdomen Ultrasound 03/20/17 0000 Signed Impressions: Service Date/Time: Monday, March 20, 2017 11:38 - CONCLUSION: 1. Hepatosplenomegaly without focal lesion. 2. Probable sludge within the lumen of the gallbladder. No intrahepatic duct. Cheo Martínez MD Shoulder X-Ray 03/02/17 1404 Signed Impressions: Service Date/Time: Thursday, March 02, 2017 15:18 - CONCLUSION: No evidence of recent bony injury. Deformity of the lateral left clavicle suggests old healed trauma. Cheo Martínez MD Maxillofacial CT 03/02/17 1342 Signed Impressions: Service Date/Time: Thursday, March 02, 2017 14:52 - CONCLUSION: Negative CT of the facial bones. Cheo Martínez MD Head CT 03/02/17 1342 Signed Impressions: Service Date/Time: Thursday, March 02, 2017 14:52 - CONCLUSION: 1. Prominent scalp swelling left frontal and parietal region. No skull fracture seen. 2. Intracranial contents are intact without acute finding. Cheo Martínez MD Chest CT 03/02/17 1342 Signed Impressions: Service Date/Time: Thursday, March 02, 2017 15:04 - CONCLUSION: 1. Abnormal appearance of the lateral left clavicle suggesting a combination of acute and chronic bony injury. Fracture lucencies without bridging callus is seen the region of the coracoid process. 2. The lungs are clear. No evidence of pneumothorax. 3. Moderate size hiatus hernia. Cheo Martínez MD Cervical Spine CT 03/02/17 1342 Signed Impressions: Service Date/Time: Thursday, March 02, 2017 14:52 - CONCLUSION: Negative CT cervical spine. Cheo Martínez MD Abdomen/Pelvis CT 03/02/17 1342 Signed Impressions: Service Date/Time: Thursday, March 02, 2017 15:04 - CONCLUSION: Moderate size hiatus hernia. Scattered small sigmoid diverticula. Otherwise negative exam. 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 Also unable to express discomfort (2) Dyspnea 0-10 Scale: Unable to quantify (remains with an nasal canula. 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 Spiritual: No reported Legal: Margot Nolen is, per [facility] care decision proxy. She is currently incarcerated at the [facility]. They are permitting her to participate in decisions at this time. At some future point she will be moved to the [facility]. Ethical issues impacting care: Important Contacts * Tamanna Sandhu, daughter/ HCP: Margot Nolen is, per [facility] bam care decision proxy. . Now in [facility] (#[phone]). Facilitation of conversations with Tamanna can be arranged through booking (#[phone]) in emergency situations to address goals of care.Ask for a [place] on staff as shifts rotate throughout the week. * Guillermo Roberts, daughter friend: [phone] (cell)- has frequent contact jr Antonioy - has been very helpful Prognosis Prognosis: Poor prognosis for meaningful recovery. . Code Status: No Code Plan * Patient is incapacitated, will not regain capacity. . According to [place] statutes, health care proxy decision making falls to his only daughter, Tamanna. Now in [facility] (#[phone]). Facilitation of conversations with Tamanna can be arranged through booking (#[phone]) in emergency situations to address goals of care.Ask for a [place] on staff as shifts rotate throughout the week. * NO CODE. * 04/03/17 - NO CODE. Spoke with daughter via phone. She has elected NO trach or PEG, plan to transition to comfort and withdrawal of life support, timing to be determined. Sjwyatt hopes she might be able to visit, I have drafted a letter for her and will follow up with group home and other family 04/04/17. * Discussed with nurse, Tori and Dr. Ruby. * SYMPTOMS: Dyspnea: on mech vent. Pain: due to tubes, lines, debility etc. * Palliative care will continue to follow to assist with symptom management and further clarification of treatment goals. . Attestation To help prompt me to consider important information that might be impacting today's encounter and assessment, information from prior notes written by myself or my colleagues may have been "brought forward" into today's note. My signature on this note, however, is an attestation that I personally performed the exam, history, and/or decision-making noted today, and, unless otherwise indicated, the interactions with patient, family, and staff as well as the review of records all occurred today. I also attest that the listed assessment and stated plan reflect my best clinical judgment today based on the combination of historical information, prior notes, and today's exam/ interactions. When time spent is documented, it refers only to time spent today by the signer, or if indicated, combined time spent today by collaborating physician/nurse practitioner. JAN LIGHT April 03, 2017 17:26
--- NOTE | 2017-04-03 20:29 | HHI.CCPN ---
Subjective Remarks/Hospital Course This is a 61-year-old male with a past history of alcohol abuse and a prior admission in 2015 for severe life-threatening hyponatremia at that time with a serum sodium of 98. He presents today with what he states is a 13 day history of worsening fatigue and weakness. He is very altered and is very difficult to understand the patient. What I can understand from him, is that at some point during these 13 days he has fallen and hit his face. Otherwise he states he lays on the couch, and has not gotten not much. He states he drinks 1 beer in the morning, and 1 beer in the afternoon. He does endorse taking some Xanax to help him sleep. He denies other drug use. He denies chest pain, shortness of breath, fever, chills, nausea, vomiting, abdominal pain. It is very difficult to get him to answer anymore questions about his medical history. His speech is very slurred and he is trying to talk about how he misses his daughter. Emergency department he was found to have a serum sodium of 99, a bilirubin of 8.9, lactate of 9.8, ammonia of 60, CK of 7000, elevated troponin of 4.9 with a normal MB ratio, creatinine 1.5, serum bicarbonate of 13. His white count is 12 , platelets 112. INR 1.9. His MELD calculates at 26. 4/2: Sodium level rapidly corrected overnight, likely secondary to appropriate correction of severe life-threatening dehydration. NS fluids changed to 1/2NS and correction slowed down significantly. sodium up to 130 this AM. CK downtrending. however, patient remains severely hypotensive requiring Levophed to maintain a map > 65 mmHg. This AM, serum K 1.6 (confirmed). started replacement with 200meq KCl and recheck K. 03/04: persists in vasoplegic distributive shock. afebrile. no evidence of infection. wbc downtrending. persists with severe life-threatening electrolyte derangements. passed swallow eval for nectar thick liquids. sodium stable at 131. ck downtrending. 03/05: persists in distributive shock. echo yesterday with EF 30%, globally decreased function. milrinone added yesterday with improvement in vasopressor requirement. still with multiple electrolyte abnormalities despite very aggressive replacement. very poor appetite. sodium stable at 131, which appears to be around baseline for him, looking back at prior records. also became agitated and delirious yesterday, likely secondary to etoh withdraw. started on Ativan and Librium. 03/06: electrolyte derangements persist. placed on continuous NaPhos infusion x 24h due to severe life-threatening hypophosphatemia. serial K, phos checks. weaning off levophed, milrinone persists. still poor appetite. sodium jumped from 132 to 139, but no significant mental status change, and we did not increase sodium load. 03/07: still requiring high electrolyte replacement. milrinone weaned to 0.375 mcg /kg/min overnight. still doing well with that. delirium persists. 03/08 Remains on milrinone. Electrolyte improving. Remains very lethargic, intermittently follows commands 03/09: Continues to be lethargic but wakes up follows some commands. Remains on milrinone will DC today. T max 100.1, urine output adequate sodium is 143 03/10: More awake alert, ate 50% of break fast. Will DC Dobhoff. Discontinue arterial and central lines. Delirium also improved, remains weak 03/11: doing much better this morning. no complaints. still with poor appetite. electrolytes improved. 03/20: We consulted for respiratory failure. Patient was last seen in room 1415 CMP receiving oral cares and became acutely hypoxic saturations 82% with coarse breath sounds. Halicat called. Patient was placed on a Venturi mask 50 % with desaturations to the mid 90s. He received Solu-Medrol 20 mg IV 1, Lasix 40 mg IV 1 and was transferred IM [facility]. Hemodynamically stable. Poor mentation 03/25: Reconsulted due to respiratory failure. Patient with gurgling/ transmitted upper airway sounds. Respiration the 50s. Decision made to orotracheally intubate. Noted to have been febrile with increased O2 course over the past 48 hours. 03/26: Afebrile. Requiring Nimbex drip for ventilator synchrony. Decreased urine output noted. Hemoglobin decreased likely dilutional. Tolerating tube feeding. Electrolytes been replaced. 03/27: Tmax 100.9. Currently 97.2. +6 L past 24 hours. Hemoglobin 8 transfuse overnight. Potassium 3. We'll discontinue Nimbex drip for vent synchrony today. 03/28: Afebrile. Negative fluid balance past 24 hours. Hemoglobin currently 9. Potassium 3.0. Currently on sedation vacation positive gag and otherwise unresponsive. 03/29: Tmax 103. Currently afebrile. Not tolerating tube feeds. Remains on Kiran-Synephrine. Did not tolerate sedation vacation back on Versed at 5 mg an hour fentanyl drip at 100 mcg an hour. One bowel movement. 03/30 Tube feeds remain on hold. On neosynephrine 40 mcg/min, RN states she has been weaning. Having BMs. On Versed 8 mg/hr and fentanyl 100 mcg/hr. 03/31 Off versed. Remains on fentanyl 100 mcg/hr. Having hiccups. Still on neosynephrine 40 mcg/min. Tolerating trickle feeds. Had 2 bowel movements 04/01: no meaningful change. still requires fentanyl for sedation. still on low- dose vasopressors. 04/02: no changes. still on levo @ 7 mcg/min. unable to wean off fentanyl due to tachycardia and tachypnea. Subjective: 04/03: Off all sedation. On low-dose norepinephrine. Essentially unresponsive on the ventilator. Plan for likely withdrawal of care tomorrow Objective Vital Signs Date Time Temp Pulse Resp B/P Pulse Ox O2 Delivery O2 Flow Rate FiO2 04/03/17 18:00 102 04/03/17 16:18 98 35 04/03/17 16:00 97.3 04/03/17 12:30 21 121/85 04/03/17 04:00 Mechanical Ventilator Intake and Output 04/02/17 04/02/17 04/03/17 08:00 16:00 00:00 Intake Total 705 ml 1327 ml 918 ml Output Total 300 ml 250 ml 300 ml Balance 405 ml 1077 ml 618 ml Result Diagram: 04/01/17 0345 04/01/17 0345 Objective Remarks GENERAL: 61-year-old chronically ill appearing male, currently critically ill, orotracheally intubated. HEENT: Healing abrasion left side scalp. TIMOTHY. Scleral icterus. Very poor dentition. NECK: Trachea Midline RESP: Coarse breath sounds bilaterally. Few wheezes. CARDIOVASCULAR: Tachycardia, RR. ABDOMEN: Slightly distended but soft, bowel sounds present, tolerating trickle tube feeds. : Johns in place with conrad urine output. mild/moderate scrotal edema. MUSCULOSKELETAL: No obvious deformity. 1+ edema all extremities NEUROLOGICAL: + gag and cough. No eye contact or response to visual threat. No motor response to deep noxious stimuli. Date of Insertion: Mar 25, 2017 Line: Central Venous Catheter Side: Left Location: Internal A/P Assessment and Plan Neuro/Psych: Osmotic demyelination syndrome Acute toxic metabolic encephalopathy secondary to hypercarbic respiratory failure Alcohol dependence History of EtOH induced seizure withdrawal Chronic benzodiazepine use Off all sedation oxycodone as needed for pain Zyprexa 10 mg po q8hr wean off fentanyl. Clear today Goal of RASS 0 MRI 03/21 - T1/T2 prolonged with sparing of this central appears final fibers. 2 small spots in the posterior central spinal tract consistent with Osmotic demyelination syndrome. ODS most likely from correction of Na, with underlying alcoholism. MRI brain 03/28 revealed subacute bilateral thalamic lacunar infarcts, CPM. CT head 03/05 revealed no acute intracranial findings Continue thiamine/folate and multivitamin. Seen by neurology/Dr. Mazariegos. Respiratory: Acute hypoxemic hypercapnic respiratory failure PRVC 16/550/1.02/13/35 Ventilator bundle Bronchodilator therapy every 4 hours and as needed Duoneb q 6hours Cardiovascular: Chronic Systolic heart failure Echocardiogram 03/04 revealed EF 35-40%. Mild mR. Left atrium dilated. JANE 33 mmHg TSH within normal limits 0.8 Wean off hydrocortisone currently 50 every 8 continue to wean norepinephrine for goal map > 65 Continue midodrine 10 mg 3 times a day to help wean off pressors. Renal: Acute Kidney Injury- Rhabdomyolysis- resolved ODS-see neuro Accurate I's and O's Monitor urine output closely. Adequate past 24 hours Follow BMP in a.m. saline lock IV fluid GI: EtOH cirrhosis Hyperammonemia Hiatal hernia Sigmoid diverticulosis History of umbilical hernia repair Placed on Xifaxan 550 twice a day/lactulose 30 twice a day. Recheck ammonia recently 12. LFT is elevated. Ultrasound liver-hepatosplenomegaly. Sludge in gallbladder Patient on Prilosec 20 mg by mouth daily at home. Currently in IV Protonix Increase Reglan 10 every 8 hours/prokinetic agent. In tolerating tube feeding Having BMs s/p Relistor 03/29. Heme: Macrocytic anemia Possibly leukemoid/stress versus aspiration Hemoglobin currently around 8. Post units 2 PRBCs overnight 03/27 Monitor CBC daily. Follow trends B12 1452, Folate 15.2. TSH 0.8. ID: Likely aspiration pneumonia Escherichia coli UTI 03/11 - completed therapy Acinetobacter pneumonia Pertinent cultures 03/29 - blood cultures 2 - NGTD 03/25 - sputum --Acinetobacter. 03/25 - urine - NGTD 03/25 - blood cultures 2 -no growth 03/22 - urine - no growth 03/22 - blood cultures 2 - negative 03/20 - blood cultures 2 - no growth 03/11 - urine - Escherichia coli 03/02 - blood cultures 2 - no growth Followed by Dr. Lisa/ID. Now on Unasyn per D since 03/28, Flagyl po 03/24 . sputum culture from 03/25 positive for Acinetobacter, sensitive to Unasyn. . Tobramycin aerosols added through 04/07 Endocrine: Hyperglycemia of critical illness History of hypothyroidism SSI with Accu-Cheks every 4 hours to maintain euglycemia FEN: Replace electrolytes as clinically indicated MSK: History of old left clavicle fracture PT/OT evaluate and treat Access Left IJ TLC placed 03/25 #10 Prophylaxis: GI - Protonix DVT - SCD/heparin subcutaneous Tamanna Sandhu, daughter/ HCP: from [facility] [phone] now confirmed transferred to [facility] [place] ([phone]) this week. She elected DNR status. Code status - DNR. Discussed with his [id number] Joanna Sandhu. Patient has 1 brother in close contact/also an alcoholic and 2 sisters whom he does not keep contact with. If daughter iban unwilling to make further medical decisions would fall back to 1 brother who likely would withdrawal care. [id number] Joanna will leave phone numbers of brother and 2 sisters Larry Ruby MD April 03, 2017 20:29
[2017-04-03] MEDS: DOCUSATE SODIUM 100 MG/10 ML UDC PO SCH (20:50)
[2017-04-03] MEDS: NYSTATIN 100,000 U/GM PWD 15 GM BTL TOPICAL SCH (20:53)
[2017-04-04] VITALS (24 sets, daily range): BP systolic 101–121; BP diastolic 66–80; PULSE 98–115; RESP 20–31; TEMP 97.8–98.8; O2SAT 93–98
[2017-04-04] MEDS: HYDROCORTISONE SOD SUCCINATE 100 MG VIAL IV PUSH SCH ×3 (00:20→17:50)
[2017-04-04] MEDS: INSULIN NovoLIN REGULAR SUPPLEMENTAL SCALE SQ SCH ×6 (00:20→20:00)
[2017-04-04] MEDS: AMPICILLIN-SULBACTAM INJ 3 GM in SODIUM CHLORIDE 0.9% INJ 100 ML IV SCH ×4 (03:39→22:41)
[2017-04-04] MEDS: RESP: ALBUTEROL 2.5 MG/IPRATROPIUM 0.5 MG NEB (SCH) NEB ×4 (03:46→20:00)
[2017-04-04 04:05] LABS: HEMATOCRIT 26.6 % (39.0-51.0); MEAN CELL VOLUME 101.2 FL (80.0-100.0); MEAN CORPUSCULAR HEMOGLOBIN 33.8 PG (27.0-34.0); MEAN CORPUSCULAR HGB CONC 33.4 % (32.0-36.0); PLATELET COUNT 233 TH/MM3 (150-450); RED BLOOD COUNT 2.63 MIL/MM3 (4.50-5.90); RED CELL DISTRIBUTION WIDTH 16.5 % (11.6-17.2); REVIEW FLAG FINAL; WHITE BLOOD COUNT 10.3 TH/MM3 (4.0-11.0)
[2017-04-04 04:28] LABS: BICARBONATE 22.5 MEQ/L (21.0-32.0); MAGNESIUM 1.7 MG/DL (1.5-2.5); POTASSIUM 3.8 MEQ/L (3.5-5.1)
[2017-04-04] MEDS: metroNIDAZOLE 500 MG TAB PO SCH ×3 (04:58→20:33)
[2017-04-04] MEDS: HEPARIN SODIUM - SQ 10,000 UNITS/ML VIAL SQ SCH ×3 (04:58→20:33)
[2017-04-04] MEDS: OLANZapine ODT 10 MG TAB PO SCH ×3 (04:58→20:32)
[2017-04-04] MEDS: METOCLOPRAMIDE HCL 10 MG/2 ML VIAL IV PUSH SCH ×3 (04:58→20:33)
[2017-04-04] MEDS: MIDODRINE 5 MG TAB PO SCH ×3 (04:59→20:32)
[2017-04-04] MEDS: SODIUM PHOSPHATE INJ 30 MMOL in SODIUM CHLOR 0.9% 250 ML INJ 240 ML IV PRN (06:09)
[2017-04-04] MEDS: CHLORHEXIDINE 0.12% (ORAL KIT) 15 ML CUP MT SCH ×2 (08:07→20:30)
[2017-04-04] MEDS: LACTOBACILLUS ACIDOPHILUS TAB PO SCH ×3 (08:07→17:50)
[2017-04-04] MEDS: RIFAXIMIN 550 MG TAB PO SCH ×2 (08:08→20:32)
[2017-04-04] MEDS: THIAMINE INJ 100 MG in SODIUM CHLORIDE 0.9% INJ 100 ML IV SCH (08:08)
[2017-04-04] MEDS: PANTOPRAZOLE SODIUM 40 MG VIAL IV SCH (08:08)
[2017-04-04] MEDS: SODIUM CHLORIDE 0.9% FLUSH 10 ML FLUSH IV FLUSH SCH ×2 (08:08→20:32)
[2017-04-04] MEDS: SODIUM CHLORIDE 0.9% FLUSH 10 ML FLUSH IVF SCH (08:08)
[2017-04-04] MEDS: ARTIFICIAL TEARS OPTH SOLN 15 ML BTL EACH EYE SCH ×3 (08:11→17:50)
[2017-04-04] MEDS: NYSTATIN 100,000 U/GM PWD 15 GM BTL TOPICAL SCH ×2 (08:11→20:35)
[2017-04-04] MEDS: DOCUSATE SODIUM 100 MG/10 ML UDC PO SCH ×2 (08:19→20:32)
[2017-04-04] MEDS: MUPIROCIN 2% OINT 1 APPLIC/GM SYR EACH NARE SCH ×2 (08:19→20:31)
[2017-04-04] MEDS: LACTULOSE SYRUP 20 GM/30 ML CUP PO SCH ×2 (09:00→20:32)
[2017-04-04] MEDS: RESP: TOBRAMYCIN SULFATE 80 MG/2 ML NEB NEB SCH ×2 (10:10→20:00)
--- NOTE | 2017-04-04 10:28 | HHI.IDPN ---
Subjective Subjective Remarks Notes reviewed D/W RN Daughter looking at withdrawal Spoke with palliative medicine On the vent Off pressors Antibiotics Unasyn Flagyl Tobra nebs Lines [facility] TLC Past Medical History ETOHism Allergies: Coded Allergies: PEANUTS (Unverified Allergy, Severe, 03/02/17) *MDRO Multi-Drug Resistant Organism (Verified Adverse Reaction, Unknown, ) MRSA PCR screen POSITIVE - 03/02/17 MDR Acinetobacter (sputum) - 03/25/17 Objective . Vital Signs Date Time Temp Pulse Resp B/P Pulse Ox O2 Delivery O2 Flow Rate FiO2 04/04/17 09:34 96 35 04/04/17 06:00 101 04/04/17 04:06 95 35 04/04/17 04:00 98.2 107 20 102/66 95 04/04/17 04:00 107 04/04/17 04:00 35 04/04/17 02:00 108 04/04/17 00:16 96 35 04/04/17 00:00 110 04/04/17 00:00 35 04/04/17 00:00 98.4 110 20 101/74 95 04/03/17 22:00 82 04/03/17 20:33 100 35 04/03/17 20:00 35 04/03/17 20:00 97.6 114 22 79/ 95 04/03/17 20:00 114 04/03/17 18:00 102 04/03/17 16:18 98 35 04/03/17 16:00 97.3 04/03/17 16:00 35 04/03/17 16:00 101 04/03/17 14:00 92 04/03/17 13:20 96 35 04/03/17 12:30 97.5 98 21 121/85 96 04/03/17 12:15 83 18 113/76 96 04/03/17 12:00 97.6 04/03/17 12:00 35 04/03/17 12:00 84 18 113/73 95 04/03/17 12:00 84 04/03/17 11:45 84 18 119/75 96 04/03/17 11:30 81 18 102/67 94 04/03/17 11:15 82 18 110/71 94 04/03/17 11:15 82 18 110/71 94 04/03/17 11:00 82 18 110/71 95 04/03/17 11:00 82 18 110/71 95 04/03/17 10:45 82 18 108/70 94 04/03/17 10:45 82 18 108/70 94 04/03/17 10:30 87 18 104/68 95 04/03/17 10:30 87 18 104/68 95 04/03/17 04/03/17 04/04/17 15:00 23:00 07:00 Intake Total 1112 ml 851 ml 926 ml Output Total 350 ml 300 ml 250 ml Balance 762 ml 551 ml 676 ml IV Total 404 ml 146 ml 223 ml Tube Feeding 468 ml 505 ml 403 ml Other 240 ml 200 ml 300 ml Output Urine Total 350 ml 300 ml 250 ml # Bowel Movements 3 1 . Laboratory Tests Test 04/04/17 03:25 White Blood Count 10.3 TH/MM3 Red Blood Count 2.63 MIL/MM3 Hemoglobin 8.9 GM/DL Hematocrit 26.6 % Mean Corpuscular Volume 101.2 FL Mean Corpuscular Hemoglobin 33.8 PG Mean Corpuscular Hemoglobin 33.4 % Concent Red Cell Distribution Width 16.5 % Platelet Count 233 TH/MM3 Mean Platelet Volume 8.1 FL Laboratory Tests Test 04/04/17 03:25 Sodium Level 138 MEQ/L Potassium Level 3.8 MEQ/L Chloride Level 107 MEQ/L Carbon Dioxide Level 22.5 MEQ/L Anion Gap 9 MEQ/L Blood Urea Nitrogen 18 MG/DL Creatinine 0.64 MG/DL Estimat Glomerular Filtration 128 ML/MIN Rate Random Glucose 179 MG/DL Calcium Level 8.1 MG/DL Phosphorus Level 2.0 MG/DL Magnesium Level 1.7 MG/DL Imaging Chest X-Ray 03/27/17 0600 Signed Impressions: Service Date/Time: Monday, March 27, 2017 02:33 - CONCLUSION: No significant interval change. Víctor Rosas MD Chest X-Ray 03/26/17 0600 Signed Impressions: Service Date/Time: Sunday, March 26, 2017 05:35 - CONCLUSION: Improving bilateral pulmonary infiltrates Víctor Rosas MD Chest X-Ray 03/25/17 1004 Signed Impressions: Service Date/Time: Saturday, March 25, 2017 10:03 - CONCLUSION: 1. Worsening bibasilar consolidation. 2. Endotracheal tube with tip at the thoracic inlet and should be advanced at least 3-4 cm. 3. Adequate placement of left jugular central line without pneumothorax. Logan Morgan MD Chest X-Ray 03/26/17 0600 Signed Impressions: Service Date/Time: Sunday, March 26, 2017 05:35 - CONCLUSION: Improving bilateral pulmonary infiltrates Víctor Rosas MD Lower Extremity Ultrasound 03/25/17 0000 Signed Impressions: Service Date/Time: Saturday, March 25, 2017 22:17 - CONCLUSION: No evidence of DVT. Víctor Rosas MD CT Angiography 03/21/17 0000 Signed Impressions: Service Date/Time: March 00:33 - CONCLUSION: No evidence of pulmonary embolism is identified. Mild atelectasis left lung base. Fluid or phlegm within the trachea. Milo Muhammad MD Brain MRI 03/20/17 0000 Signed Impressions: Service Date/Time: Monday, March 20, 2017 16:11 - CONCLUSION: Abnormal appearance to the ruthy with some extension into the cortical spinal tracts of the posterior thalamus was bilaterally. 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 Cheo Martínez MD Abdomen X-Ray 03/20/17 0000 Signed Impressions: Service Date/Time: Monday, March 20, 2017 18:12 - CONCLUSION: Tip of the Dobbhoff tube projecting towards the pylorus. Cheo Barrera Jr., MD Abdomen Ultrasound 03/20/17 0000 Signed Impressions: Service Date/Time: Monday, March 20, 2017 11:38 - CONCLUSION: 1. Hepatosplenomegaly without focal lesion. 2. Probable sludge within the lumen of the gallbladder. No intrahepatic duct. Cheo Martínez MD Shoulder X-Ray 03/02/17 1404 Signed Impressions: Service Date/Time: Thursday, March 02, 2017 15:18 - CONCLUSION: No evidence of recent bony injury. Deformity of the lateral left clavicle suggests old healed trauma. Cheo Martínez MD Maxillofacial CT 03/02/17 1342 Signed Impressions: Service Date/Time: Thursday, March 02, 2017 14:52 - CONCLUSION: Negative CT of the facial bones. Cheo Martínez MD Head CT 03/02/17 1342 Signed Impressions: Service Date/Time: Thursday, March 02, 2017 14:52 - CONCLUSION: 1. Prominent scalp swelling left frontal and parietal region. No skull fracture seen. 2. Intracranial contents are intact without acute finding. Cheo Martínez MD Chest CT 03/02/17 1342 Signed Impressions: Service Date/Time: Thursday, March 02, 2017 15:04 - CONCLUSION: 1. Abnormal appearance of the lateral left clavicle suggesting a combination of acute and chronic bony injury. Fracture lucencies without bridging callus is seen the region of the coracoid process. 2. The lungs are clear. No evidence of pneumothorax. 3. Moderate size hiatus hernia. Cheo Martínez MD Cervical Spine CT 03/02/17 1342 Signed Impressions: Service Date/Time: Thursday, March 02, 2017 14:52 - CONCLUSION: Negative CT cervical spine. Cheo Martínez MD Abdomen/Pelvis CT 03/02/17 1342 Signed Impressions: Service Date/Time: Thursday, March 02, 2017 15:04 - CONCLUSION: Moderate size hiatus hernia. Scattered small sigmoid diverticula. Otherwise negative exam. Cheo Martínez MD Chest X-Ray 03/25/17 1004 Signed Impressions: Service Date/Time: Saturday, March 25, 2017 10:03 - CONCLUSION: 1. Worsening bibasilar consolidation. 2. Endotracheal tube with tip at the thoracic inlet and should be advanced at least 3-4 cm. 3. Adequate placement of left jugular central line without pneumothorax. Logan Morgan MD Chest X-Ray 03/23/17 0000 Signed Impressions: Service Date/Time: Thursday, March 23, 2017 14:27 - CONCLUSION: 1. Feeding tube in place with what appears to be a loop in the hypopharynx. 2. Bibasilar areas of consolidation or atelectasis. Casper Vargas MD Physical Exam GENERAL: on the vent, not in distress.Sedated SKIN: Warm and dry. No generalized rash. Has some edema in his upper extremities. HEENT: Pupils equal round and reactive. Orally intubated. Poor dentition. A lot of oral secretions NECK: Supple, nontender, no meningeal signs. CARDIOVASCULAR: Regular rate and rhythm without murmurs, gallops, or rubs. Tachycardic. RESPIRATORY: Has few scattered rhonchi, decreased BS at bases GASTROINTESTINAL: Abdomen mildly distended, bowel sounds are present and normoactive, no reaction to palpation MUSCULOSKELETAL: Lower extremities without clubbing, cyanosis. Developing some pedal edema. No joint effusion. NEUROLOGICAL: Sedated. PSYCH: Unable to assess : Johns cath in place, urine looks better LINE: central line site ok Assessment & Plan Remarks IMPRESSION Sepsis syndrome, due to PNA - on vent - has MDR Acinetobacter Septic shock, BP better Known ETOH abuse Encephalopathy - sepsis, ETOH, CPM Respiratory failure Diarrhea, C diff negative RECOMMENDATION Continue Unasyn for MDR Acinetobacter Continue Tobra nebs Continue Flagyl for now Family looking at withdrawal D/W Umm Lui MD April 04, 2017 10:28
[2017-04-04] MEDS ORDERED: SODIUM PHOSPHATE INJ 15 MMOL in SODIUM CHLORIDE 0.9% INJ 150 ML IV ONE (11:45)
--- NOTE | 2017-04-04 11:49 | HHI.CCPN ---
Subjective Remarks/Hospital Course This is a 61-year-old male with a past history of alcohol abuse and a prior admission in 2015 for severe life-threatening hyponatremia at that time with a serum sodium of 98. He presents today with what he states is a 13 day history of worsening fatigue and weakness. He is very altered and is very difficult to understand the patient. What I can understand from him, is that at some point during these 13 days he has fallen and hit his face. Otherwise he states he lays on the couch, and has not gotten not much. He states he drinks 1 beer in the morning, and 1 beer in the afternoon. He does endorse taking some Xanax to help him sleep. He denies other drug use. He denies chest pain, shortness of breath, fever, chills, nausea, vomiting, abdominal pain. It is very difficult to get him to answer anymore questions about his medical history. His speech is very slurred and he is trying to talk about how he misses his daughter. Emergency department he was found to have a serum sodium of 99, a bilirubin of 8.9, lactate of 9.8, ammonia of 60, CK of 7000, elevated troponin of 4.9 with a normal MB ratio, creatinine 1.5, serum bicarbonate of 13. His white count is 12 , platelets 112. INR 1.9. His MELD calculates at 26. 4/2: Sodium level rapidly corrected overnight, likely secondary to appropriate correction of severe life-threatening dehydration. NS fluids changed to 1/2NS and correction slowed down significantly. sodium up to 130 this AM. CK downtrending. however, patient remains severely hypotensive requiring Levophed to maintain a map > 65 mmHg. This AM, serum K 1.6 (confirmed). started replacement with 200meq KCl and recheck K. 03/04: persists in vasoplegic distributive shock. afebrile. no evidence of infection. wbc downtrending. persists with severe life-threatening electrolyte derangements. passed swallow eval for nectar thick liquids. sodium stable at 131. ck downtrending. 03/05: persists in distributive shock. echo yesterday with EF 30%, globally decreased function. milrinone added yesterday with improvement in vasopressor requirement. still with multiple electrolyte abnormalities despite very aggressive replacement. very poor appetite. sodium stable at 131, which appears to be around baseline for him, looking back at prior records. also became agitated and delirious yesterday, likely secondary to etoh withdraw. started on Ativan and Librium. 03/06: electrolyte derangements persist. placed on continuous NaPhos infusion x 24h due to severe life-threatening hypophosphatemia. serial K, phos checks. weaning off levophed, milrinone persists. still poor appetite. sodium jumped from 132 to 139, but no significant mental status change, and we did not increase sodium load. 03/07: still requiring high electrolyte replacement. milrinone weaned to 0.375 mcg /kg/min overnight. still doing well with that. delirium persists. 03/08 Remains on milrinone. Electrolyte improving. Remains very lethargic, intermittently follows commands 03/09: Continues to be lethargic but wakes up follows some commands. Remains on milrinone will DC today. T max 100.1, urine output adequate sodium is 143 03/10: More awake alert, ate 50% of break fast. Will DC Dobhoff. Discontinue arterial and central lines. Delirium also improved, remains weak 03/11: doing much better this morning. no complaints. still with poor appetite. electrolytes improved. 03/20: We consulted for respiratory failure. Patient was last seen in room 1415 CMP receiving oral cares and became acutely hypoxic saturations 82% with coarse breath sounds. Halicat called. Patient was placed on a Venturi mask 50 % with desaturations to the mid 90s. He received Solu-Medrol 20 mg IV 1, Lasix 40 mg IV 1 and was transferred IM [facility]. Hemodynamically stable. Poor mentation 03/25: Reconsulted due to respiratory failure. Patient with gurgling/ transmitted upper airway sounds. Respiration the 50s. Decision made to orotracheally intubate. Noted to have been febrile with increased O2 course over the past 48 hours. 03/26: Afebrile. Requiring Nimbex drip for ventilator synchrony. Decreased urine output noted. Hemoglobin decreased likely dilutional. Tolerating tube feeding. Electrolytes been replaced. 03/27: Tmax 100.9. Currently 97.2. +6 L past 24 hours. Hemoglobin 8 transfuse overnight. Potassium 3. We'll discontinue Nimbex drip for vent synchrony today. 03/28: Afebrile. Negative fluid balance past 24 hours. Hemoglobin currently 9. Potassium 3.0. Currently on sedation vacation positive gag and otherwise unresponsive. 03/29: Tmax 103. Currently afebrile. Not tolerating tube feeds. Remains on Kiran-Synephrine. Did not tolerate sedation vacation back on Versed at 5 mg an hour fentanyl drip at 100 mcg an hour. One bowel movement. 03/30 Tube feeds remain on hold. On neosynephrine 40 mcg/min, RN states she has been weaning. Having BMs. On Versed 8 mg/hr and fentanyl 100 mcg/hr. 03/31 Off versed. Remains on fentanyl 100 mcg/hr. Having hiccups. Still on neosynephrine 40 mcg/min. Tolerating trickle feeds. Had 2 bowel movements 04/01: no meaningful change. still requires fentanyl for sedation. still on low- dose vasopressors. 04/02: no changes. still on levo @ 7 mcg/min. unable to wean off fentanyl due to tachycardia and tachypnea. 04/03: Off all sedation. On low-dose norepinephrine. Essentially unresponsive on the ventilator. Plan for likely withdrawal of care tomorrow Subjective: 04/04: Off all sedation. Off all vasopressors. According to overnight RN was following commands. Will open eyes but not following commands this AM. Objective Vital Signs Date Time Temp Pulse Resp B/P Pulse Ox O2 Delivery O2 Flow Rate FiO2 04/04/17 11:09 97 35 04/04/17 06:00 101 04/04/17 04:00 98.2 20 102/66 04/03/17 04:00 Mechanical Ventilator Intake and Output 04/03/17 04/03/17 04/04/17 08:00 16:00 00:00 Intake Total 512 ml 1112 ml 851 ml Output Total 250 ml 350 ml 300 ml Balance 262 ml 762 ml 551 ml Result Diagram: 04/04/17 0325 04/04/17 0325 Imaging Last Impressions Chest X-Ray 03/30/17599 Signed Impressions: Service Date/Time: Thursday, March 30, 2017 01:30 - CONCLUSION: No significant change. Bilateral infiltrates and small pleural effusions persist. Casper Clifton MD Abdomen X-Ray 03/30/17599 Signed Impressions: Service Date/Time: Thursday, March 30, 2017 01:32 - CONCLUSION: Nonobstructive bowel gas pattern. Dobbhoff feeding tube tip at the level of the third portion of the duodenum. Casper Clifton MD Head Magnetic Resonance Angiography 03/28/17 0000 Signed Impressions: Service Date/Time: March 17:22 - CONCLUSION: Unremarkable examination. Bety Castillo MD Brain MRI 03/28/17 0000 Signed Impressions: Service Date/Time: March 17:22 - CONCLUSION: 1. 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 Small subacute ischemic bilateral thalamic infarcts. 2. There has been no significant change when compared to the prior exam. Yinka Harman MD Lower Extremity Ultrasound 03/25/17 0000 Signed Impressions: Service Date/Time: Saturday, March 25, 2017 22:17 - CONCLUSION: No evidence of DVT. Víctor Rosas MD CT Angiography 03/21/17 0000 Signed Impressions: Service Date/Time: March 00:33 - CONCLUSION: No evidence of pulmonary embolism is identified. Mild atelectasis left lung base. Fluid or phlegm within the trachea. Milo Muhammad MD Abdomen Ultrasound 03/20/17 0000 Signed Impressions: Service Date/Time: Monday, March 20, 2017 11:38 - CONCLUSION: 1. Hepatosplenomegaly without focal lesion. 2. Probable sludge within the lumen of the gallbladder. No intrahepatic duct. Cheo Martínez MD Shoulder X-Ray 03/02/17 1404 Signed Impressions: Service Date/Time: Thursday, March 02, 2017 15:18 - CONCLUSION: No evidence of recent bony injury. Deformity of the lateral left clavicle suggests old healed trauma. Cheo Martínez MD Maxillofacial CT 03/02/17 1342 Signed Impressions: Service Date/Time: Thursday, March 02, 2017 14:52 - CONCLUSION: Negative CT of the facial bones. Cheo Martínez MD Head CT 03/02/17 1342 Signed Impressions: Service Date/Time: Thursday, March 02, 2017 14:52 - CONCLUSION: 1. Prominent scalp swelling left frontal and parietal region. No skull fracture seen. 2. Intracranial contents are intact without acute finding. Cheo Martínez MD Chest CT 03/02/17 1342 Signed Impressions: Service Date/Time: Thursday, March 02, 2017 15:04 - CONCLUSION: 1. Abnormal appearance of the lateral left clavicle suggesting a combination of acute and chronic bony injury. Fracture lucencies without bridging callus is seen the region of the coracoid process. 2. The lungs are clear. No evidence of pneumothorax. 3. Moderate size hiatus hernia. Cheo Martínez MD Cervical Spine CT 03/02/17 1342 Signed Impressions: Service Date/Time: Thursday, March 02, 2017 14:52 - CONCLUSION: Negative CT cervical spine. Cheo Martínez MD Abdomen/Pelvis CT 03/02/17 1342 Signed Impressions: Service Date/Time: Thursday, March 02, 2017 15:04 - CONCLUSION: Moderate size hiatus hernia. Scattered small sigmoid diverticula. Otherwise negative exam. Cheo Martínez MD Objective Remarks GENERAL: 61-year-old chronically ill appearing male, currently critically ill, orotracheally intubated. HEENT: Healing abrasion left side scalp. TIMOTHY. Scleral icterus. Very poor dentition. NECK: Trachea Midline RESP: Coarse breath sounds bilaterally. Few wheezes. CARDIOVASCULAR: Tachycardia, RR. ABDOMEN: Slightly distended but soft, bowel sounds present, tolerating trickle tube feeds. : Johns in place with conrad urine output. mild/moderate scrotal edema. MUSCULOSKELETAL: No obvious deformity. 1+ edema all extremities NEUROLOGICAL: + gag and cough. Opens eyes but not following commands.. Withdrawals to pain in all 4 extremities Date of Insertion: Mar 25, 2017 Line: Central Venous Catheter Side: Left Location: Internal A/P Assessment and Plan Neuro/Psych: Osmotic demyelination syndrome Acute toxic metabolic encephalopathy secondary to hypercarbic respiratory failure Alcohol dependence History of EtOH induced seizure withdrawal Chronic benzodiazepine use Off all sedation oxycodone as needed for pain Zyprexa 10 mg po q8hr Goal of RASS 0 MRI 03/21 - T1/T2 prolonged with sparing of this central appears final fibers. 2 small spots in the posterior central spinal tract consistent with Osmotic demyelination syndrome. ODS most likely from correction of Na, with underlying alcoholism. MRI brain 03/28 revealed subacute bilateral thalamic lacunar infarcts, CPM. CT head 4/4 revealed no acute intracranial findings Continue thiamine/folate and multivitamin. Seen by neurology/Dr. Mazariegos. Respiratory: Acute hypoxemic hypercapnic respiratory failure PRVC 16/550/1.02/13/35 Ventilator bundle Bronchodilator therapy every 4 hours and as needed Duoneb q 6hours Cardiovascular: Chronic Systolic heart failure Echocardiogram 03/04 revealed EF 35-40%. Mild mR. Left atrium dilated. JANE 33 mmHg TSH within normal limits 0.8 Wean off hydrocortisone currently 50 every 8 continue to wean norepinephrine for goal map > 65 Continue midodrine 10 mg 3 times a day to help wean off pressors. Renal: Acute Kidney Injury- Rhabdomyolysis- resolved ODS-see neuro Accurate I's and O's Monitor urine output closely. Adequate past 24 hours Follow BMP in a.m. saline lock IV fluid GI: EtOH cirrhosis Hyperammonemia Hiatal hernia Sigmoid diverticulosis History of umbilical hernia repair Placed on Xifaxan 550 twice a day/lactulose 30 twice a day. Recheck ammonia recently 12. LFT is elevated. Ultrasound liver-hepatosplenomegaly. Sludge in gallbladder Patient on Prilosec 20 mg by mouth daily at home. Currently in IV Protonix Increase Reglan 10 every 8 hours/prokinetic agent. In tolerating tube feeding Having BMs s/p Relistor 03/29. Heme: Macrocytic anemia Possibly leukemoid/stress versus aspiration Hemoglobin currently around 8. Post units 2 PRBCs overnight 03/27 Monitor CBC daily. Follow trends B12 1452, Folate 15.2. TSH 0.8. ID: Likely aspiration pneumonia Escherichia coli UTI 03/11 - completed therapy Acinetobacter pneumonia Pertinent cultures 03/29 - blood cultures 2 - NGTD 03/25 - sputum --Acinetobacter. 03/25 - urine - NGTD 03/25 - blood cultures 2 -no growth 03/22 - urine - no growth 03/22 - blood cultures 2 - negative 03/20 - blood cultures 2 - no growth 03/11 - urine - Escherichia coli 03/02 - blood cultures 2 - no growth Followed by Dr. Lisa/ID. Now on Unasyn per D since 03/28, Flagyl po 03/24 . sputum culture from 03/25 positive for Acinetobacter, sensitive to Unasyn. . Tobramycin aerosols added 04/02/17 through 04/07 Endocrine: Hyperglycemia of critical illness History of hypothyroidism SSI with Accu-Cheks every 4 hours to maintain euglycemia FEN: Hypophosphatemia Replace electrolytes as clinically indicated 15 mmol sodium phosphorus IV 1 now MSK: History of old left clavicle fracture PT/OT evaluate and treat Access Left IJ TLC placed 03/25 #10 Prophylaxis: GI - Protonix DVT - SCD/heparin subcutaneous Tamanna Sandhu, daughter/ HCP: from [facility] [phone] now confirmed transferred to [facility] in [facility] ) this week. She elected DNR status. Code status - DNR. Discussed with his [id number] Joanna Sandhu. Patient has 1 brother in close contact/also an alcoholic and 2 sisters whom he does not keep contact with. If daughter iban unwilling to make further medical decisions would fall back to 1 brother who likely would withdrawal care. [id number] Joanna will leave phone numbers of brother and 2 sisters Larry Ruby MD April 04, 2017 11:49
[2017-04-04] MEDS ORDERED: MAGNESIUM SULFATE 1 GM PREMIX 100 ML IV SCH (12:00)
--- NOTE | 2017-04-04 15:11 | HHI.HCPN ---
Reason for visit a. To assist with evaluation and management of symptoms including: dyspnea, pain. b. To assist medical decision maker(s) with: better understanding of current medical conditions; weighing benefits/burdens of medical treatment options; making medical treatment decisions. . Subjective/Interval History Patient seen and examined in ICU. Discussed with Dr. Ruby and nurse, Tori. No family at bedside. Patient is laying in bed with eyes open. Intermittently squeezes hands on command. Afebrile. Vital signs stable. On mech vent, does not appear he will be weaned from vent. No new imaging. . Family/friend interactions Spoke with daughterTamanna via phone to provide medical update. Detention indicates Tamanna has not yet requested furlough. Tamanna indicates the request has been made through her civil rights attorney, palliative care will attempt to contact civil rights attorney to determine feasibility of allowing Tamanna to say goodbye to her father before withdrawal of life support and transition to comfort. . Advance Directives Living Will: Never completed Health Care Surrogate: Never completed Durable Power of Technical Solution Architect: Never completed Advance Directive Specifics Health Care Surrogate(s): Margot Nolen is, per [place] statues bam care decision proxy. . Now in [facility] (#[phone]). Facilitation of conversations with Tamanna can be arranged through booking (#[phone]) in emergency situations to address goals of care.Ask for a Briscoe on staff as shifts rotate throughout the week. Significant change in goals: NO CODE, NO TRACH/PEG. Plan to transition to comfort measures with withdrawal of life support in the coming days, timing to be determined. . Objective Vital Signs Date Time Temp Pulse Resp B/P Pulse Ox O2 Delivery O2 Flow Rate FiO2 04/04/17 11:09 97 35 04/04/17 09:34 96 35 04/04/17 08:00 35 04/04/17 06:00 101 04/04/17 04:06 95 35 04/04/17 04:00 98.2 107 20 102/66 95 04/04/17 04:00 107 04/04/17 04:00 35 04/04/17 02:00 108 04/04/17 00:16 96 35 04/04/17 00:00 110 04/04/17 00:00 35 04/04/17 00:00 98.4 110 20 101/74 95 04/03/17 22:00 82 04/03/17 20:33 100 35 04/03/17 20:00 35 04/03/17 20:00 97.6 114 22 79/ 95 04/03/17 20:00 114 04/03/17 18:00 102 04/03/17 16:18 98 35 04/03/17 16:00 97.3 04/03/17 16:00 35 04/03/17 16:00 101 Intake & Output 04/04/17 04/04/17 07:00 19:00 Intake Total 1777 ml Output Total 550 ml Balance 1227 ml IV Total 369 ml Tube Feeding 908 ml Other 500 ml Output Urine Total 550 ml # Bowel Movements 1 Physical Exam CONSTITUTIONAL/GENERAL: This is an thin, pale, critically ill, appearing patient , in no apparent distress. TUBES/LINES/DRAINS: ETT, OG, Left IJ central line, Johns, rectal tube, SCDs. SKIN: Red rash on face. Ecchymosis bilateral UEs. Skin temperature appropriate. Not diaphoretic. CARDIOVASCULAR: Regular rate and rhythm without murmurs, gallops, or rubs. No JVD. Peripheral pulses symmetric. RESPIRATORY/CHEST: Symmetric, unlabored respirations. Coarse rhonchi anteriorly. GASTROINTESTINAL: Abdomen soft, non-tender, nondistended.hepato-splenomegaly, Bowel sounds sluggish GENITOURINARY: Without palpable bladder distension. Johns catheter in place. Erythema groin area. MUSCULOSKELETAL: Generalized edema noted. No mottling or clubbing. NEUROLOGICAL: - not awake nor following commands PSYCHIATRIC: unable to assess . Diagnostic Tests Laboratory Laboratory Tests Test 04/04/17 03:25 White Blood Count 10.3 TH/MM3 (4.0-11.0) Red Blood Count 2.63 MIL/MM3 (4.50-5.90) Hemoglobin 8.9 GM/DL (13.0-17.0) Hematocrit 26.6 % (39.0-51.0) Mean Corpuscular Volume 101.2 FL (80.0-100.0) Mean Corpuscular Hemoglobin 33.8 PG (27.0-34.0) Mean Corpuscular Hemoglobin 33.4 % Concent (32.0-36.0) Red Cell Distribution Width 16.5 % (11.6-17.2) Platelet Count 233 TH/MM3 (150-450) Mean Platelet Volume 8.1 FL (7.0-11.0) Sodium Level 138 MEQ/L (136-145) Potassium Level 3.8 MEQ/L (3.5-5.1) Chloride Level 107 MEQ/L (98-107) Carbon Dioxide Level 22.5 MEQ/L (21.0-32.0) Anion Gap 9 MEQ/L (5-15) Blood Urea Nitrogen 18 MG/DL (7-18) Creatinine 0.64 MG/DL (0.60-1.30) Estimat Glomerular Filtration 128 ML/MIN Rate (>89) Random Glucose 179 MG/DL (74-106) Calcium Level 8.1 MG/DL (8.5-10.1) Phosphorus Level 2.0 MG/DL (2.5-4.9) Magnesium Level 1.7 MG/DL (1.5-2.5) Result Diagram: 04/04/17 0325 04/04/17 0325 Imaging Last Impressions Chest X-Ray 03/30/17599 Signed Impressions: Service Date/Time: Thursday, March 30, 2017 01:30 - CONCLUSION: No significant change. Bilateral infiltrates and small pleural effusions persist. Casper Clifton MD Abdomen X-Ray 03/30/17599 Signed Impressions: Service Date/Time: Thursday, March 30, 2017 01:32 - CONCLUSION: Nonobstructive bowel gas pattern. Dobbhoff feeding tube tip at the level of the third portion of the duodenum. Casper Clifton MD Head Magnetic Resonance Angiography 03/28/17 0000 Signed Impressions: Service Date/Time: March 17:22 - CONCLUSION: Unremarkable examination. Bety Castillo MD Brain MRI 03/28/17 0000 Signed Impressions: Service Date/Time: March 17:22 - CONCLUSION: 1. 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 Small subacute ischemic bilateral thalamic infarcts. 2. There has been no significant change when compared to the prior exam. Yinka Harman MD Lower Extremity Ultrasound 03/25/17 0000 Signed Impressions: Service Date/Time: Saturday, March 25, 2017 22:17 - CONCLUSION: No evidence of DVT. Víctor Rosas MD CT Angiography 03/21/17 0000 Signed Impressions: Service Date/Time: March 00:33 - CONCLUSION: No evidence of pulmonary embolism is identified. Mild atelectasis left lung base. Fluid or phlegm within the trachea. Milo Muhammad MD Abdomen Ultrasound 03/20/17 0000 Signed Impressions: Service Date/Time: Monday, March 20, 2017 11:38 - CONCLUSION: 1. Hepatosplenomegaly without focal lesion. 2. Probable sludge within the lumen of the gallbladder. No intrahepatic duct. Cheo Martínez MD Shoulder X-Ray 03/02/17 1404 Signed Impressions: Service Date/Time: Thursday, March 02, 2017 15:18 - CONCLUSION: No evidence of recent bony injury. Deformity of the lateral left clavicle suggests old healed trauma. Cheo Martínez MD Maxillofacial CT 03/02/17 1342 Signed Impressions: Service Date/Time: Thursday, March 02, 2017 14:52 - CONCLUSION: Negative CT of the facial bones. Cheo Martínez MD Head CT 03/02/17 1342 Signed Impressions: Service Date/Time: Thursday, March 02, 2017 14:52 - CONCLUSION: 1. Prominent scalp swelling left frontal and parietal region. No skull fracture seen. 2. Intracranial contents are intact without acute finding. Cheo Martínez MD Chest CT 03/02/17 1342 Signed Impressions: Service Date/Time: Thursday, March 02, 2017 15:04 - CONCLUSION: 1. Abnormal appearance of the lateral left clavicle suggesting a combination of acute and chronic bony injury. Fracture lucencies without bridging callus is seen the region of the coracoid process. 2. The lungs are clear. No evidence of pneumothorax. 3. Moderate size hiatus hernia. Cheo Martínez MD Cervical Spine CT 03/02/17 1342 Signed Impressions: Service Date/Time: Thursday, March 02, 2017 14:52 - CONCLUSION: Negative CT cervical spine. Cheo Martínez MD Abdomen/Pelvis CT 03/02/17 1342 Signed Impressions: Service Date/Time: Thursday, March 02, 2017 15:04 - CONCLUSION: Moderate size hiatus hernia. Scattered small sigmoid diverticula. Otherwise negative exam. Cheo Martínez MD . 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 Also unable to express discomfort (2) Dyspnea 0-10 Scale: Unable to quantify (remains with an nasal canula. 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 Spiritual: No reported Legal: Margot [facility]olen is[facility] b[facility] decision proxy. She is currently incarcerated at the [facility]. They are permitting her to participate in decisions at this time. At some future point she will be moved to the [facility]. Ethical issues impacting care: Important Contacts * Tamanna Sandhu, daughter/ HCP: Margot Nolen is, per [place] [facility] care decision proxy. . Now in [facility] (#[phone]). Facilitation of conversations with Tamanna can be arranged through booking (#[phone]) in emergency situations to address goals of care.Ask for a Briscoe on staff as shifts rotate throughout the week. * Guillermo Roberts, daughter friend: [phone] (cell)- has frequent contact w Amie - has been very helpful Prognosis Prognosis: Poor prognosis for meaningful recovery. . Code Status: No Code Plan * Patient is incapacitated, will not regain capacity. . According to [place] statutes, health care proxy decision making falls to his only daughter, Tamanna. Now in [facility] (#[phone]). Facilitation of conversations with Tamanna can be arranged through booking (#[phone]) in emergency situations to address goals of care.Ask for a Lucila on staff as shifts rotate throughout the week. * NO CODE. * 04/04/17 - NO CODE. Spoke with daughter via phone. She has elected NO trach or PEG, plan to transition to comfort and withdrawal of life support, timing to be determined. Spoke with daughter, Tamanna via phone to provide medical update. Detention indicates Tamanna has not yet requested furlough. Tamanna indicates the request has been made through her civil rights attorney, palliative care will attempt to contact civil rights attorney to determine feasibility of allowing Tamanna to say goodbye to her father before withdrawal of life support and transition to comfort. * Discussed with nurse, Tori and Dr. Ruby. * SYMPTOMS: Dyspnea: on mech vent. Pain: due to tubes, lines, debility etc. * Palliative care will continue to follow to assist with symptom management and further clarification of treatment goals. . Attestation To help prompt me to consider important information that might be impacting today's encounter and assessment, information from prior notes written by myself or my colleagues may have been "brought forward" into today's note. My signature on this note, however, is an attestation that I personally performed the exam, history, and/or decision-making noted today, and, unless otherwise indicated, the interactions with patient, family, and staff as well as the review of records all occurred today. I also attest that the listed assessment and stated plan reflect my best clinical judgment today based on the combination of historical information, prior notes, and today's exam/ interactions. When time spent is documented, it refers only to time spent today by the signer, or if indicated, combined time spent today by collaborating physician/nurse practitioner. JAN LIGHT April 04, 2017 15:11
[2017-04-05] VITALS (24 sets, daily range): BP systolic 95–142; BP diastolic 62–88; PULSE 75–105; RESP 18–21; TEMP 97.3–98.9; O2SAT 95–100
[2017-04-05] MEDS: HYDROCORTISONE SOD SUCCINATE 100 MG VIAL IV PUSH SCH ×3 (00:21→18:08)
[2017-04-05] MEDS: INSULIN NovoLIN REGULAR SUPPLEMENTAL SCALE SQ SCH ×7 (00:21→23:57)
[2017-04-05] MEDS: ONDANSETRON HCL 4 MG/2 ML VIAL IV PRN (01:12)
[2017-04-05] MEDS: AMPICILLIN-SULBACTAM INJ 3 GM in SODIUM CHLORIDE 0.9% INJ 100 ML IV SCH ×4 (04:25→22:54)
[2017-04-05] MEDS: METOCLOPRAMIDE HCL 10 MG/2 ML VIAL IV PUSH SCH ×3 (04:25→21:44)
[2017-04-05] MEDS: HEPARIN SODIUM - SQ 10,000 UNITS/ML VIAL SQ SCH ×3 (04:25→21:44)
[2017-04-05] MEDS: metroNIDAZOLE 500 MG TAB PO SCH ×3 (04:26→21:43)
[2017-04-05] MEDS: OLANZapine ODT 10 MG TAB PO SCH ×3 (04:26→21:44)
[2017-04-05] MEDS: MIDODRINE 5 MG TAB PO SCH ×3 (04:26→21:44)
[2017-04-05] MEDS: RESP: TOBRAMYCIN SULFATE 80 MG/2 ML NEB NEB SCH ×2 (07:46→19:41)
[2017-04-05] MEDS: CHLORHEXIDINE 0.12% (ORAL KIT) 15 ML CUP MT SCH ×2 (08:00→20:36)
--- NOTE | 2017-04-05 08:11 | HHI.CCPN ---
Subjective Remarks/Hospital Course This is a 61-year-old male with a past history of alcohol abuse and a prior admission in 2015 for severe life-threatening hyponatremia at that time with a serum sodium of 98. He presents today with what he states is a 13 day history of worsening fatigue and weakness. He is very altered and is very difficult to understand the patient. What I can understand from him, is that at some point during these 13 days he has fallen and hit his face. Otherwise he states he lays on the couch, and has not gotten not much. He states he drinks 1 beer in the morning, and 1 beer in the afternoon. He does endorse taking some Xanax to help him sleep. He denies other drug use. He denies chest pain, shortness of breath, fever, chills, nausea, vomiting, abdominal pain. It is very difficult to get him to answer anymore questions about his medical history. His speech is very slurred and he is trying to talk about how he misses his daughter. Emergency department he was found to have a serum sodium of 99, a bilirubin of 8.9, lactate of 9.8, ammonia of 60, CK of 7000, elevated troponin of 4.9 with a normal MB ratio, creatinine 1.5, serum bicarbonate of 13. His white count is 12 , platelets 112. INR 1.9. His MELD calculates at 26. 4/2: Sodium level rapidly corrected overnight, likely secondary to appropriate correction of severe life-threatening dehydration. NS fluids changed to 1/2NS and correction slowed down significantly. sodium up to 130 this AM. CK downtrending. however, patient remains severely hypotensive requiring Levophed to maintain a map > 65 mmHg. This AM, serum K 1.6 (confirmed). started replacement with 200meq KCl and recheck K. 03/04: persists in vasoplegic distributive shock. afebrile. no evidence of infection. wbc downtrending. persists with severe life-threatening electrolyte derangements. passed swallow eval for nectar thick liquids. sodium stable at 131. ck downtrending. 03/05: persists in distributive shock. echo yesterday with EF 30%, globally decreased function. milrinone added yesterday with improvement in vasopressor requirement. still with multiple electrolyte abnormalities despite very aggressive replacement. very poor appetite. sodium stable at 131, which appears to be around baseline for him, looking back at prior records. also became agitated and delirious yesterday, likely secondary to etoh withdraw. started on Ativan and Librium. 03/06: electrolyte derangements persist. placed on continuous NaPhos infusion x 24h due to severe life-threatening hypophosphatemia. serial K, phos checks. weaning off levophed, milrinone persists. still poor appetite. sodium jumped from 132 to 139, but no significant mental status change, and we did not increase sodium load. 03/07: still requiring high electrolyte replacement. milrinone weaned to 0.375 mcg /kg/min overnight. still doing well with that. delirium persists. 03/08 Remains on milrinone. Electrolyte improving. Remains very lethargic, intermittently follows commands 03/09: Continues to be lethargic but wakes up follows some commands. Remains on milrinone will DC today. T max 100.1, urine output adequate sodium is 143 03/10: More awake alert, ate 50% of break fast. Will DC Dobhoff. Discontinue arterial and central lines. Delirium also improved, remains weak 03/11: doing much better this morning. no complaints. still with poor appetite. electrolytes improved. 03/20: We consulted for respiratory failure. Patient was last seen in room 1415 CMP receiving oral cares and became acutely hypoxic saturations 82% with coarse breath sounds. Halicat called. Patient was placed on a Venturi mask 50 % with desaturations to the mid 90s. He received Solu-Medrol 20 mg IV 1, Lasix 40 mg IV 1 and was transferred IM [facility] 521. Hemodynamically stable. Poor mentation 03/25: Reconsulted due to respiratory failure. Patient with gurgling/ transmitted upper airway sounds. Respiration the 50s. Decision made to orotracheally intubate. Noted to have been febrile with increased O2 course over the past 48 hours. 03/26: Afebrile. Requiring Nimbex drip for ventilator synchrony. Decreased urine output noted. Hemoglobin decreased likely dilutional. Tolerating tube feeding. Electrolytes been replaced. 03/27: Tmax 100.9. Currently 97.2. +6 L past 24 hours. Hemoglobin 8 transfuse overnight. Potassium 3. We'll discontinue Nimbex drip for vent synchrony today. 03/28: Afebrile. Negative fluid balance past 24 hours. Hemoglobin currently 9. Potassium 3.0. Currently on sedation vacation positive gag and otherwise unresponsive. 03/29: Tmax 103. Currently afebrile. Not tolerating tube feeds. Remains on Kiran-Synephrine. Did not tolerate sedation vacation back on Versed at 5 mg an hour fentanyl drip at 100 mcg an hour. One bowel movement. 03/30 Tube feeds remain on hold. On neosynephrine 40 mcg/min, RN states she has been weaning. Having BMs. On Versed 8 mg/hr and fentanyl 100 mcg/hr. 03/31 Off versed. Remains on fentanyl 100 mcg/hr. Having hiccups. Still on neosynephrine 40 mcg/min. Tolerating trickle feeds. Had 2 bowel movements 04/01: no meaningful change. still requires fentanyl for sedation. still on low- dose vasopressors. 04/02: no changes. still on levo @ 7 mcg/min. unable to wean off fentanyl due to tachycardia and tachypnea. 04/03: Off all sedation. On low-dose norepinephrine. Essentially unresponsive on the ventilator. Plan for likely withdrawal of care tomorrow Subjective: 04/04: Off all sedation. Off all vasopressors. According to overnight RN was following commands. Will open eyes but not following commands this AM. 04/05 No events overnight. Afebrile On no sedation. Objective Vital Signs Date Time Temp Pulse Resp B/P Pulse Ox O2 Delivery O2 Flow Rate FiO2 04/05/17 06:00 76 04/05/17 04:02 99 35 04/05/17 04:00 98.4 20 123/79 04/03/17 04:00 Mechanical Ventilator Intake and Output 04/04/17 04/04/17 04/04/17 07:59 15:59 23:59 Intake Total 926 ml 1126 ml 762 ml Output Total 250 ml 350 ml 200 ml Balance 676 ml 776 ml 562 ml Result Diagram: 04/04/17 0325 04/04/17 0325 Other Results Laboratory Tests Test 04/04/17 15:28 Phosphorus Level 2.9 MG/DL Imaging Laboratory Tests Test 04/04/17 15:28 Phosphorus Level 2.9 MG/DL Objective Remarks GENERAL: 61-year-old chronically ill appearing male, currently critically ill, orotracheally intubated. HEENT: Healing abrasion left side scalp. TIMOTHY. Scleral icterus. Very poor dentition. NECK: Trachea Midline RESP: Coarse breath sounds bilaterally. Few wheezes. CARDIOVASCULAR: Tachycardia, RR. ABDOMEN: Slightly distended but soft, bowel sounds present, tolerating trickle tube feeds. : Johns in place with conrad urine output. mild/moderate scrotal edema. MUSCULOSKELETAL: No obvious deformity. 1+ edema all extremities NEUROLOGICAL: + gag and cough. Opens eyes but not following commands.. Withdrawals to pain in all 4 extremities Date of Insertion: Mar 25, 2017 Line: Central Venous Catheter Side: Left Location: Internal A/P Assessment and Plan Neuro/Psych: Osmotic demyelination syndrome Acute toxic metabolic encephalopathy secondary to hypercarbic respiratory failure Alcohol dependence History of EtOH induced seizure withdrawal Chronic benzodiazepine use Off all sedation oxycodone as needed for pain Zyprexa 10 mg po q8hr Goal of RASS 0 MRI 03/21 - T1/T2 prolonged with sparing of this central appears final fibers. 2 small spots in the posterior central spinal tract consistent with Osmotic demyelination syndrome. ODS most likely from correction of Na, with underlying alcoholism. MRI brain 03/28 revealed subacute bilateral thalamic lacunar infarcts, CPM. CT head 03/05 revealed no acute intracranial findings Continue thiamine Seen by neurology/Dr. Mazariegos. Respiratory: Acute hypoxemic hypercapnic respiratory failure PRVC 18/550/1.2//35 Ventilator bundle Bronchodilator therapy every 4 hours and as needed Duoneb q 6hours Cardiovascular: Chronic Systolic heart failure Echocardiogram 03/04 revealed EF 35-40%. Mild mR. Left atrium dilated. JANE 33 mmHg TSH within normal limits 0.8 Wean off hydrocortisone currently 50 every 8 continue to wean norepinephrine for goal map > 65 Continue midodrine 10 mg 3 times Renal: Acute Kidney Injury- Rhabdomyolysis- resolved ODS-see neuro Monitor renal function, I/O's, electrolytes replacement as needed Diurese with Bumex 1mg x1 GI: EtOH cirrhosis Hyperammonemia Hiatal hernia Sigmoid diverticulosis History of umbilical hernia repair Resume tub feeds Jevity 1.5 with goal rate 60ml/hr On Xifaxan 550 twice a day/lactulose 30 twice a day. Recheck ammonia recently 12. LFT is elevated. Ultrasound liver-hepatosplenomegaly. Sludge in gallbladder Patient on Prilosec 20 mg by mouth daily at home. Currently in IV Protonix Reglan 10 every 8 hours/prokinetic agent. Heme: Macrocytic anemia Monitor CBC B12 1452, Folate 15.2. TSH 0.8. ID: Likely aspiration pneumonia Escherichia coli UTI 03/11 - completed therapy Acinetobacter pneumonia Pertinent cultures 03/29 - blood cultures 2 - NGTD 03/25 - sputum --Acinetobacter. 03/25 - urine - NGTD 03/25 - blood cultures 2 -no growth 03/22 - urine - no growth 03/22 - blood cultures 2 - negative 03/20 - blood cultures 2 - no growth 03/11 - urine - Escherichia coli 03/02 - blood cultures 2 - no growth Followed by Dr. Lisa/ID. Now on Unasyn per D since 03/28, Flagyl po 03/24 . sputum culture from 03/25 positive for Acinetobacter, sensitive to Unasyn. . Tobramycin aerosols added 04/02/17 through 04/07 Endocrine: Hyperglycemia of critical illness History of hypothyroidism SSI with Accu-Cheks every 4 hours to maintain euglycemia MSK: History of old left clavicle fracture PT/OT evaluate and treat Access Left IJ TLC placed 03/25 #10 Prophylaxis: GI - Protonix DVT - SCD/heparin subcutaneous Palliative care is following. For possible withdrawal of care. Per Dr. Tung Sandhu, daughter/ HCP: from [facility] now confirmed transferred to [facility] in [place] facility ) this week. She elected DNR status. Code status - DNR. Discussed with his [id number]-eyg Joanna Sandhu. Patient has 1 brother in close contact/also an alcoholic and 2 sisters whom he does not keep contact with. If daughter unwilling to make further medical decisions would fall back to 1 brother who likely would withdrawal care. Junvch-yo-hlw Joanna will leave phone numbers of brother and 2 sisters Check labs today Level 3 Meir Garcia MD April 05, 2017 08:10
[2017-04-05] MEDS ORDERED: BUMETANIDE INJ 1 MG/4 ML VIAL IV PUSH ONE (08:15)
[2017-04-05] MEDS: LACTULOSE SYRUP 20 GM/30 ML CUP PO SCH ×2 (09:00→20:35)
[2017-04-05] MEDS: ARTIFICIAL TEARS OPTH SOLN 15 ML BTL EACH EYE SCH ×3 (09:00→18:08)
[2017-04-05] MEDS: NYSTATIN 100,000 U/GM PWD 15 GM BTL TOPICAL SCH ×2 (09:00→20:48)
[2017-04-05] MEDS: DOCUSATE SODIUM 100 MG/10 ML UDC PO SCH ×2 (09:07→20:35)
[2017-04-05] MEDS: LACTOBACILLUS ACIDOPHILUS TAB PO SCH ×3 (09:07→18:08)
[2017-04-05] MEDS: RIFAXIMIN 550 MG TAB PO SCH ×2 (09:07→20:35)
[2017-04-05] MEDS: MUPIROCIN 2% OINT 1 APPLIC/GM SYR EACH NARE SCH ×2 (09:07→20:35)
[2017-04-05] MEDS: THIAMINE HCL 100 MG TAB PO SCH (09:07)
[2017-04-05] MEDS: SODIUM CHLORIDE 0.9% FLUSH 10 ML FLUSH IV FLUSH SCH ×2 (09:08→20:35)
[2017-04-05] MEDS: PANTOPRAZOLE SODIUM 40 MG VIAL IV SCH (09:08)
[2017-04-05] MEDS: SODIUM CHLORIDE 0.9% FLUSH 10 ML FLUSH IVF SCH (09:08)
[2017-04-05 10:23] LABS: ALKALINE PHOSPHATASE 352 U/L (45-117); ALT (GPT) 70 U/L (12-78); ANION GAP 10 MEQ/L (5-15); AST (GOT) 194 U/L (15-37); BICARBONATE 21.7 MEQ/L (21.0-32.0); CHLORIDE 109 MEQ/L (98-107); GLOMERULAR FILTRATION RATE 128 ML/MIN (>89); MAGNESIUM 1.8 MG/DL (1.5-2.5); POTASSIUM 4.7 MEQ/L (3.5-5.1); SODIUM (NA) 141 MEQ/L (136-145); TOTAL BILIRUBIN ADULT 1.9 MG/DL (0.2-1.0)
[2017-04-05 10:25] LABS: BLOOD UREA NITROGEN 22 MG/DL (7-18)
[2017-04-05 10:30] LABS: AUTOMATED NEUTROPHIL # 7.2 TH/MM3 (1.8-7.7); BASOPHIL # 0.1 TH/MM3 (0-0.2); BASOPHIL % 1.4 % (0.0-2.0); HEMATOCRIT 29.1 % (39.0-51.0); LYMPH % 9.9 % (9.0-44.0); LYMPHOCYTE # 0.8 TH/MM3 (1.0-4.8); MEAN CORPUSCULAR HEMOGLOBIN 33.7 PG (27.0-34.0); MEAN CORPUSCULAR HGB CONC 33.7 % (32.0-36.0); MONO % 5.1 % (0.0-8.0); NEUT % 83.6 % (16.0-70.0); PLATELET COUNT 203 TH/MM3 (150-450); RED BLOOD COUNT 2.91 MIL/MM3 (4.50-5.90); WHITE BLOOD COUNT 8.6 TH/MM3 (4.0-11.0)
[2017-04-05 10:32] LABS: HEMO FLAGS AUTO DIFF
[2017-04-05 11:22] LABS: PLATELET ESTIMATE SMEAR NORMAL (NORMAL)
[2017-04-05 11:23] LABS: PLATELET MORPHOLOGY NORMAL (NORMAL); SCAN/DIFF AUTO DIFF CONFIRMED
--- NOTE | 2017-04-05 14:07 | HHI.HCPN ---
8am: Call from Mr. Brunner, public policy manager. I explained the circumstances regarding Tamanna, Mr. Sandhu's daughter and legal health care proxy decision maker. I reviewed that patient remains critically ill in ICU and that she has elected to proceed with transition to comfort focused care with withdrawal of life support. She has requested radu to come to say good-bye. He reports request for furlough has been entered to the court, he expect furlough will be denied. He expects to have an answer possible later today or at latest 04/08/17. He will let me know as soon as he has an answer. 11am: Called Tamanna to provide medical update and let her know that I will call when I have an answer from her city attorney regarding furlough, She understands we will proceed with withdrawal of life support on Saturday04/08/17 if furlough denied. She agrees. I brought phone to room for Tamanna to speak with her father in case she is unable to visit. She and patient are tearful during the conversation, patient seems to respond to her voice/ conversation. She appreciates continued palliative care updates. Notified nurse and Dr. Salazar of plan, both agree. . JAN LIGHT April 05, 2017 14:07
[2017-04-05] MEDS: RESP: ALBUTEROL 2.5 MG/3 ML NEB (PRN) INH (19:41)
--- NOTE | 2017-04-05 20:10 | HHI.PR ---
Review/Management Diagnosis 1. Encephalopathy. Hepatic/metabolic encephalopathy 2. Alcohol dependence 3. History of ethanol induced seizure withdrawal 4. Chronic benzodiazepine use. 5. 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 Plan 1. Neuro checks q. one hourly. 2. CIWA protocol thiamine, folate and multivitamin. 3. Ativan 0.25 mg for seizures lasting more than 3 minutes. 4. Seizure precautions. 5. Serial monitoring of electrolytes 6. Maintenance of electrolyte balance, slow correction of the sodium and potassium 7. DVT prophylaxis. Diagnosis/Plan: Subjective Subjective Comments Intubated, vented No reported seizure activity No change in neuro status Active Medications Current Medications Medications (Trade) Dose Ordered Sig/Mae Route Start Time Stop Time Status Last Admin (D50w (Vial) Inj) 25 ml UNSCH PRN IV PUSH 03/02/17 16:30 03/15/17 15:58 (Heparin Inj) 5,000 units Q8H SQ 03/09/17 14:00 04/05/17 13:10 (Lactulose Liq) 30 ml BID PO 03/12/17 21:00 04/04/17 20:32 (Xifaxan) 550 mg BID PO 03/20/17 09:00 04/05/17 09:07 (NS Flush) 2 ml UNSCH PRN IV FLUSH 03/20/17 07:30 (NS Flush) 2 ml BID IV FLUSH 03/20/17 09:00 04/05/17 09:08 (Protonix Inj) 40 mg DAILY IV 03/20/17 09:00 04/05/17 09:08 (Tears Naturale Opth Soln) 1 drop TID EACH EYE 03/20/17 09:00 04/05/17 18:08 (Zofran Inj) 4 mg Q6H PRN IV 03/20/17 07:30 04/05/17 01:12 (Senokot) 17.2 mg Q12H PRN PO 03/20/17 07:30 (Bactroban Nasal 2% Oint) Taper BID EACH NARE 03/20/17 09:00 03/16/18 08:59 04/05/17 09:07 (Flagyl) 500 mg Q8HR PO 03/24/17 14:15 04/05/17 13:11 (Lactinex) 1 tab TID PO 03/24/17 18:00 04/05/17 18:08 (NS Flush) DAILY IVF 03/25/17 10:15 04/05/17 09:08 (NS Flush) UNSCH PRN IVF 03/25/17 10:15 Chlorhexidine Gluconate 15 ml 15 ml BID@08,20 MT 03/25/17 20:00 04/05/17 08:00 (fentaNYL DRIP) 250 ml @ 0 mls/hr TITRATE IV 03/25/17 10:15 04/03/17 08:03 Insulin Human Regular 1 1 Q4HR SQ 03/26/17 08:00 04/05/17 00:21 Potassium Chloride 100 ml @ 50 mls/hr Q2H PRN IV 03/27/17 12:30 03/29/17 00:11 (KCl 20 Meq Premix Inj) 100 ml @ 50 mls/hr Q2H PRN IV 03/27/17 12:30 Potassium Bicarb/ Potassium Chloride 50 meq 50 meq UNSCH PRN PO 03/27/17 12:30 Potassium Chloride 100 ml @ 25 mls/hr UNSCH PRN IV 03/27/17 12:30 04/01/17 10:58 Potassium Chloride 100 ml @ 50 mls/hr Q2H PRN IV 03/27/17 12:30 (Magnesium Sulfate Inj/NS Inj) 100 ml @ 50 mls/hr UNSCH PRN IV 03/27/17 12:30 Magnesium Oxide 800 mg 800 mg UNSCH PRN PO 03/27/17 12:30 (Magnesium Sulfate Inj/NS Inj) 100 ml @ 50 mls/hr UNSCH PRN IV 03/27/17 12:30 Potassium Phosphate 2000 mg 2,000 mg Q4H PRN PO 03/27/17 12:30 (Sodium Phosphate Inj/NS 250 ml Inj) 250 ml @ 42 mls/hr UNSCH PRN IV 03/27/17 12:30 04/04/17 06:09 Potassium Phosphate 2000 mg 2,000 mg UNSCH PRN PO/TUBE 03/27/17 12:30 (Unasyn Inj/NS Inj) 100 ml @ 200 mls/hr Q6H IV 03/28/17 11:00 04/05/17 16:14 (Roxicodone) 5 mg Q6H PRN OG-TUBE 03/31/17 21:30 (Reglan Inj) 10 mg Q8HR IV PUSH 03/31/17 22:00 04/05/17 13:10 (Proamatine) 10 mg Q8HR PO 04/01/17 22:00 04/05/17 13:11 (ZyPREXA ZYDIS ODT) 10 mg Q8HR PO 04/01/17 22:00 04/05/17 13:10 (Tylenol) 500 mg Q6H PRN PO 04/01/17 23:15 (Colace Liq) 100 mg Q12HR PO 04/03/17 21:00 04/05/17 09:07 (Mycostatin Powder) 1 applic Q12HR TOPICAL 04/03/17 21:00 04/05/17 09:00 (SoluCORTEF INJ) 50 mg Q8H IV PUSH 04/04/17 02:00 04/05/17 18:08 (Vitamin B1) 100 mg DAILY PO 04/05/17 09:00 04/05/17 09:07 Allergies Allergies Coded Allergies PEANUTS (Unverified Allergy, Severe, 03/02/17) *MDRO Multi-Drug Resistant Organism (Verified Adverse Reaction, Unknown, ) Exam I&O / VS 04/04/17 04/04/17 04/05/17 15:00 23:00 07:00 Intake Total 1126 ml 762 ml 703 ml Output Total 350 ml 200 ml Balance 776 ml 562 ml 703 ml IV Total 278 ml 201 ml 309 ml Tube Feeding 608 ml 361 ml 194 ml Other 240 ml 200 ml 200 ml Output Urine Total 350 ml 200 ml # Voids 1 # Bowel Movements 4 3 Vital Signs Date Time Temp Pulse Resp B/P Pulse Ox O2 Delivery O2 Flow Rate FiO2 04/05/17 19:42 99 35 04/05/17 18:00 102 04/05/17 18:00 102 18 142/88 97 04/05/17 17:00 82 18 106/67 98 04/05/17 16:43 98 35 04/05/17 16:00 35 04/05/17 16:00 98.2 101 21 112/70 99 04/05/17 16:00 101 04/05/17 15:00 103 21 113/80 99 04/05/17 14:00 84 04/05/17 14:00 84 20 109/71 96 04/05/17 13:00 88 21 99/67 98 04/05/17 12:00 80 04/05/17 12:00 35 04/05/17 12:00 98.4 80 18 102/67 98 04/05/17 11:00 88 18 95/62 96 04/05/17 10:14 82 18 110/68 100 04/05/17 10:00 85 04/05/17 10:00 85 18 100 04/05/17 09:00 75 18 123/78 99 04/05/17 08:00 83 04/05/17 08:00 98.1 83 18 117/74 100 04/05/17 08:00 35 04/05/17 07:00 84 18 115/75 99 04/05/17 06:00 76 04/05/17 06:00 76 18 114/69 99 04/05/17 05:00 92 18 109/75 99 04/05/17 04:02 99 35 04/05/17 04:00 98.4 95 20 123/79 95 04/05/17 04:00 35 04/05/17 04:00 95 04/05/17 02:00 102 04/05/17 00:25 98 35 04/05/17 00:00 35 04/05/17 00:00 102 04/05/17 00:00 98.9 102 20 119/84 98 04/04/17 22:00 107 04/04/17 20:43 97 35 Exam Comments GENERAL: The patient is lethargic, HEENT: There is an abrasion of the left side of the scalp, poor oral hygiene in the teeth. NECK: No JVD, no lymphadenopathy. No signs of meningeal irritation. RESPIRATORY: Scattered wheezes CARDIOVASCULAR: sinus tachycardia ABDOMEN: Distended, nontender. No rigidity. MUSCULOSKELETAL: Peripheral pulses are present. No edema. NEUROLOGIC: The patient is lethargic, responds to verbal stimuli intermittently by opening eyes, squeezes fingers, moves extremities spontaneously, reflexes 1+ bilateral symmetrical. Plantars are bilateral, mute. Objective Radiology Results Last 72 hours Impressions Chest X-Ray 04/08/17 0600 Signed Impressions: Service Date/Time: Saturday, April 08, 2017 05:10 - CONCLUSION: 1. Endotracheal tube and weighted feeding tube. 2. Bilateral pulmonary infiltrates. Some improvement from the prior study. Cheo Barrera Jr., MD Micro and Labs Laboratory Tests Test 04/05/17 09:26 White Blood Count 8.6 Red Blood Count 2.91 Hemoglobin 9.8 Hematocrit 29.1 Mean Corpuscular Volume 100.0 Mean Corpuscular Hemoglobin 33.7 Mean Corpuscular Hemoglobin 33.7 Concent Red Cell Distribution Width 16.0 Platelet Count 203 Mean Platelet Volume 8.6 Neutrophils (%) (Auto) 83.6 Lymphocytes (%) (Auto) 9.9 Monocytes (%) (Auto) 5.1 Eosinophils (%) (Auto) 0.0 Basophils (%) (Auto) 1.4 Neutrophils # (Auto) 7.2 Lymphocytes # (Auto) 0.8 Monocytes # (Auto) 0.4 Eosinophils # (Auto) 0.0 Basophils # (Auto) 0.1 CBC Comment AUTO DIFF Differential Comment AUTO DIFF CONFIRMED Platelet Estimate NORMAL Platelet Morphology Comment NORMAL Hematology Comments Sodium Level 141 Potassium Level 4.7 Chloride Level 109 Carbon Dioxide Level 21.7 Anion Gap 10 Blood Urea Nitrogen 22 Creatinine 0.64 Estimat Glomerular Filtration 128 Rate Random Glucose 93 Calcium Level 7.9 Phosphorus Level 3.3 Magnesium Level 1.8 Total Bilirubin 1.9 Aspartate Amino Transf 194 (AST/SGOT) Alanine Aminotransferase 70 (ALT/SGPT) Alkaline Phosphatase 352 Total Protein 5.6 Albumin 1.6 Susy Mazariegos MD April 05, 2017 20:10
[2017-04-06] VITALS (20 sets, daily range): BP systolic 104–123; BP diastolic 69–79; PULSE 82–101; RESP 20–36; TEMP 98.6–99.7; O2SAT 95–100
[2017-04-06] MEDS: HYDROCORTISONE SOD SUCCINATE 100 MG VIAL IV PUSH SCH ×3 (01:52→20:45)
[2017-04-06 02:00] LABS: BACTERIA, URINE MOD /hpf; BLOOD, URINE NEG (NEG); GLUCOSE,URINE NEG (NEG); HYALINE CAST, URINE 8 /lpf (RARE); KETONE, URINE NEG (NEG); MUCUS URINE FEW /lpf (OCC); NITRITE,URINE NEG (NEG); PH, URINE 5.5 (5.0-8.5); URINE COLOR DARK-YELLOW (YELLW/STRAW)
[2017-04-06 02:04] LABS: COMMENT (UR) CATH-CULTURE IND; CULTURE IF INDICATED CATH CULTURE IND
[2017-04-06] MEDS: INSULIN NovoLIN REGULAR SUPPLEMENTAL SCALE SQ SCH ×5 (03:45→20:00)
[2017-04-06] MEDS: METOCLOPRAMIDE HCL 10 MG/2 ML VIAL IV PUSH SCH ×3 (05:17→21:52)
[2017-04-06] MEDS: HEPARIN SODIUM - SQ 10,000 UNITS/ML VIAL SQ SCH ×3 (05:17→21:52)
[2017-04-06] MEDS: OLANZapine ODT 10 MG TAB PO SCH (05:17)
[2017-04-06] MEDS: metroNIDAZOLE 500 MG TAB PO SCH ×3 (05:17→21:51)
[2017-04-06] MEDS: AMPICILLIN-SULBACTAM INJ 3 GM in SODIUM CHLORIDE 0.9% INJ 100 ML IV SCH ×4 (05:17→21:51)
[2017-04-06] MEDS: MIDODRINE 5 MG TAB PO SCH ×3 (05:21→21:51)
[2017-04-06] MEDS: RESP: TOBRAMYCIN SULFATE 80 MG/2 ML NEB NEB SCH ×2 (08:21→19:45)
--- NOTE | 2017-04-06 08:31 | HHI.CCPN ---
Subjective Remarks/Hospital Course This is a 61-year-old male with a past history of alcohol abuse and a prior admission in 2015 for severe life-threatening hyponatremia at that time with a serum sodium of 98. He presents today with what he states is a 13 day history of worsening fatigue and weakness. He is very altered and is very difficult to understand the patient. What I can understand from him, is that at some point during these 13 days he has fallen and hit his face. Otherwise he states he lays on the couch, and has not gotten not much. He states he drinks 1 beer in the morning, and 1 beer in the afternoon. He does endorse taking some Xanax to help him sleep. He denies other drug use. He denies chest pain, shortness of breath, fever, chills, nausea, vomiting, abdominal pain. It is very difficult to get him to answer anymore questions about his medical history. His speech is very slurred and he is trying to talk about how he misses his daughter. Emergency department he was found to have a serum sodium of 99, a bilirubin of 8.9, lactate of 9.8, ammonia of 60, CK of 7000, elevated troponin of 4.9 with a normal MB ratio, creatinine 1.5, serum bicarbonate of 13. His white count is 12 , platelets 112. INR 1.9. His MELD calculates at 26. 4/2: Sodium level rapidly corrected overnight, likely secondary to appropriate correction of severe life-threatening dehydration. NS fluids changed to 1/2NS and correction slowed down significantly. sodium up to 130 this AM. CK downtrending. however, patient remains severely hypotensive requiring Levophed to maintain a map > 65 mmHg. This AM, serum K 1.6 (confirmed). started replacement with 200meq KCl and recheck K. 03/04: persists in vasoplegic distributive shock. afebrile. no evidence of infection. wbc downtrending. persists with severe life-threatening electrolyte derangements. passed swallow eval for nectar thick liquids. sodium stable at 131. ck downtrending. 03/05: persists in distributive shock. echo yesterday with EF 30%, globally decreased function. milrinone added yesterday with improvement in vasopressor requirement. still with multiple electrolyte abnormalities despite very aggressive replacement. very poor appetite. sodium stable at 131, which appears to be around baseline for him, looking back at prior records. also became agitated and delirious yesterday, likely secondary to etoh withdraw. started on Ativan and Librium. 03/06: electrolyte derangements persist. placed on continuous NaPhos infusion x 24h due to severe life-threatening hypophosphatemia. serial K, phos checks. weaning off levophed, milrinone persists. still poor appetite. sodium jumped from 132 to 139, but no significant mental status change, and we did not increase sodium load. 03/07: still requiring high electrolyte replacement. milrinone weaned to 0.375 mcg /kg/min overnight. still doing well with that. delirium persists. 03/08 Remains on milrinone. Electrolyte improving. Remains very lethargic, intermittently follows commands 03/09: Continues to be lethargic but wakes up follows some commands. Remains on milrinone will DC today. T max 100.1, urine output adequate sodium is 143 03/10: More awake alert, ate 50% of break fast. Will DC Dobhoff. Discontinue arterial and central lines. Delirium also improved, remains weak 03/11: doing much better this morning. no complaints. still with poor appetite. electrolytes improved. 03/20: We consulted for respiratory failure. Patient was last seen in room 1415 CMP receiving oral cares and became acutely hypoxic saturations 82% with coarse breath sounds. Halicat called. Patient was placed on a Venturi mask 50 % with desaturations to the mid 90s. He received Solu-Medrol 20 mg IV 1, Lasix 40 mg IV 1 and was transferred IM [facility] 521. Hemodynamically stable. Poor mentation 03/25: Reconsulted due to respiratory failure. Patient with gurgling/ transmitted upper airway sounds. Respiration the 50s. Decision made to orotracheally intubate. Noted to have been febrile with increased O2 course over the past 48 hours. 03/26: Afebrile. Requiring Nimbex drip for ventilator synchrony. Decreased urine output noted. Hemoglobin decreased likely dilutional. Tolerating tube feeding. Electrolytes been replaced. 03/27: Tmax 100.9. Currently 97.2. +6 L past 24 hours. Hemoglobin 8 transfuse overnight. Potassium 3. We'll discontinue Nimbex drip for vent synchrony today. 03/28: Afebrile. Negative fluid balance past 24 hours. Hemoglobin currently 9. Potassium 3.0. Currently on sedation vacation positive gag and otherwise unresponsive. 03/29: Tmax 103. Currently afebrile. Not tolerating tube feeds. Remains on Kiran-Synephrine. Did not tolerate sedation vacation back on Versed at 5 mg an hour fentanyl drip at 100 mcg an hour. One bowel movement. 03/30 Tube feeds remain on hold. On neosynephrine 40 mcg/min, RN states she has been weaning. Having BMs. On Versed 8 mg/hr and fentanyl 100 mcg/hr. 03/31 Off versed. Remains on fentanyl 100 mcg/hr. Having hiccups. Still on neosynephrine 40 mcg/min. Tolerating trickle feeds. Had 2 bowel movements 04/01: no meaningful change. still requires fentanyl for sedation. still on low- dose vasopressors. 04/02: no changes. still on levo @ 7 mcg/min. unable to wean off fentanyl due to tachycardia and tachypnea. 04/03: Off all sedation. On low-dose norepinephrine. Essentially unresponsive on the ventilator. Plan for likely withdrawal of care tomorrow 04/04: Off all sedation. Off all vasopressors. According to overnight RN was following commands. Will open eyes but not following commands this AM. 04/05 No events overnight. Afebrile On no sedation. Subjective: 6: Resting comfortably in bed. Eyes are open. Moving head back and forth continuously. Weakly following commands with his upper and lower extremities. Objective Vital Signs Date Time Temp Pulse Resp B/P Pulse Ox O2 Delivery O2 Flow Rate FiO2 04/06/17 06:00 93 04/06/17 04:37 96 35 04/06/17 04:00 99.1 22 122/77 04/03/17 04:00 Mechanical Ventilator Intake and Output 04/05/17 04/05/17 04/06/17 08:00 16:00 00:00 Intake Total 703 ml 934 ml 223 ml Balance 703 ml 934 ml 223 ml Result Diagram: 04/05/17 0904/05/17925 Other Results Microbiology Date/Time Procedure Status Source Growth 04/05/17 23:15 Urine Culture Received Urine Catheterized Urine Pending Imaging Last Impressions Chest X-Ray 03/30/17 0600 Signed Impressions: Service Date/Time: Thursday, March 30, 2017 01:30 - CONCLUSION: No significant change. Bilateral infiltrates and small pleural effusions persist. Casper Clifton MD Abdomen X-Ray 03/30/17 0600 Signed Impressions: Service Date/Time: Thursday, March 30, 2017 01:32 - CONCLUSION: Nonobstructive bowel gas pattern. Dobbhoff feeding tube tip at the level of the third portion of the duodenum. Casper Clifton MD Head Magnetic Resonance Angiography 03/28/17 0000 Signed Impressions: Service Date/Time: March 17:22 - CONCLUSION: Unremarkable examination. Bety Castillo MD Brain MRI 03/28/17 0000 Signed Impressions: Service Date/Time: March 17:22 - CONCLUSION: 1. 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 Small subacute ischemic bilateral thalamic infarcts. 2. There has been no significant change when compared to the prior exam. Yinka Harman MD Lower Extremity Ultrasound 03/25/17 0000 Signed Impressions: Service Date/Time: Saturday, March 25, 2017 22:17 - CONCLUSION: No evidence of DVT. Víctor Rosas MD CT Angiography 03/21/17 0000 Signed Impressions: Service Date/Time: March 00:33 - CONCLUSION: No evidence of pulmonary embolism is identified. Mild atelectasis left lung base. Fluid or phlegm within the trachea. Milo Muhammad MD Abdomen Ultrasound 03/20/17 0000 Signed Impressions: Service Date/Time: Monday, March 20, 2017 11:38 - CONCLUSION: 1. Hepatosplenomegaly without focal lesion. 2. Probable sludge within the lumen of the gallbladder. No intrahepatic duct. Cheo Martínez MD Shoulder X-Ray 03/02/17 1404 Signed Impressions: Service Date/Time: Thursday, March 02, 2017 15:18 - CONCLUSION: No evidence of recent bony injury. Deformity of the lateral left clavicle suggests old healed trauma. Cheo Martínez MD Maxillofacial CT 03/02/17 1342 Signed Impressions: Service Date/Time: Thursday, March 02, 2017 14:52 - CONCLUSION: Negative CT of the facial bones. Cheo Martínez MD Head CT 03/02/17 1342 Signed Impressions: Service Date/Time: Thursday, March 02, 2017 14:52 - CONCLUSION: 1. Prominent scalp swelling left frontal and parietal region. No skull fracture seen. 2. Intracranial contents are intact without acute finding. Cheo Martínez MD Chest CT 03/02/17 1342 Signed Impressions: Service Date/Time: Thursday, March 02, 2017 15:04 - CONCLUSION: 1. Abnormal appearance of the lateral left clavicle suggesting a combination of acute and chronic bony injury. Fracture lucencies without bridging callus is seen the region of the coracoid process. 2. The lungs are clear. No evidence of pneumothorax. 3. Moderate size hiatus hernia. Cheo Martínez MD Cervical Spine CT 03/02/17 1342 Signed Impressions: Service Date/Time: Thursday, March 02, 2017 14:52 - CONCLUSION: Negative CT cervical spine. Cheo Martínez MD Abdomen/Pelvis CT 03/02/17 1342 Signed Impressions: Service Date/Time: Thursday, March 02, 2017 15:04 - CONCLUSION: Moderate size hiatus hernia. Scattered small sigmoid diverticula. Otherwise negative exam. Cheo Martínez MD Objective Remarks GENERAL: 61-year-old chronically ill appearing male, currently critically ill, orotracheally intubated. HEENT: Healing abrasion left side scalp. TIMOTHY. Scleral icterus. Very poor dentition. NECK: Trachea Midline RESP: Coarse breath sounds bilaterally. Few wheezes. CARDIOVASCULAR: Tachycardia, RR. ABDOMEN: Slightly distended but soft, bowel sounds present, tolerating tube feeds. : Johns in place with conrad urine output. mild/moderate scrotal edema. MUSCULOSKELETAL: No obvious deformity. 1+ edema all extremities NEUROLOGICAL: + gag and cough. Opens eyes and weakly following commands with upper and lower extremities. Vascular Central Line Catheter: No Assessment to: Continue Date of Insertion: Mar 25, 2017 A/P Assessment and Plan Neuro/Psych: Osmotic demyelination syndrome Acute toxic metabolic encephalopathy secondary to hypercarbic respiratory failure Alcohol dependence History of EtOH induced seizure withdrawal Chronic benzodiazepine use Bilateral thalamic CVA Off all sedation oxycodone 5 mg every 4 hours as needed for pain Zyprexa wean to 5 mg po q8hr Goal of RASS 0 MRI 03/21 - T1/T2 prolonged with sparing of this central appears final fibers. 2 small spots in the posterior central spinal tract consistent with Osmotic demyelination syndrome. ODS most likely from correction of Na, with underlying alcoholism. MRI brain 03/28 revealed subacute bilateral thalamic lacunar infarcts, CPM. CT head 03/05 revealed no acute intracranial findings Continue thiamine Seen by neurology/Dr. Mazariegos. Respiratory: Acute hypoxemic hypercapnic respiratory failure PRVC 18/550/1.2//35 Ventilator bundle Bronchodilator therapy every 4 hours and as needed Duoneb q 6hours Attempt PSV trial today 15/ and 35% Cardiovascular: Chronic Systolic heart failure Echocardiogram 03/04 revealed EF 35-40%. Mild mR. Left atrium dilated. JANE 33 mmHg TSH within normal limits 0.8 Wean off hydrocortisone currently 50 every 12 continue to wean norepinephrine for goal map > 65 Continue midodrine 10 mg 3 times Renal: Acute Kidney Injury- Rhabdomyolysis- resolved ODS-see neuro Monitor renal function, I/O's, electrolytes replacement as needed 2 g mag sulfate IV 1 now. GI: EtOH cirrhosis Hyperammonemia Hiatal hernia Sigmoid diverticulosis History of umbilical hernia repair Continue tub feeds Jevity 1.5 with goal rate 60ml/hr On Xifaxan 550 twice a day/lactulose 30 twice a day. Recheck ammonia in a.m. LFT is elevated. Ultrasound liver-hepatosplenomegaly. Sludge in gallbladder Patient on Prilosec 20 mg by mouth daily at home. Currently in IV Protonix Reglan 10 every 8 hours/prokinetic agent. Heme: Macrocytic anemia Monitor CBC B12 1452, Folate 15.2. TSH 0.8. ID: Likely aspiration pneumonia Escherichia coli UTI 03/11 - completed therapy Acinetobacter pneumonia Pertinent cultures 04/05 - urine - pending 03/29 - blood cultures 2 - NGTD 03/25 - sputum --Acinetobacter. 03/25 - urine - NGTD 03/25 - blood cultures 2 -no growth 03/22 - urine - no growth 03/22 - blood cultures 2 - negative 03/20 - blood cultures 2 - no growth 03/11 - urine - Escherichia coli 03/02 - blood cultures 2 - no growth Followed by Dr. Lisa/ID. Now on Unasyn per D since 03/28, Flagyl po 03/24 . sputum culture from 03/25 positive for Acinetobacter, sensitive to Unasyn. . Tobramycin aerosols added 04/02/17 through 04/09 Endocrine: Hyperglycemia of critical illness History of hypothyroidism SSI with Accu-Cheks every 4 hours to maintain euglycemia MSK: History of old left clavicle fracture PT/OT evaluate and treat Access Peripheral IV. Central line if indicated Prophylaxis: GI - Protonix DVT - SCD/heparin subcutaneous Palliative care is following. For possible withdrawal of care. Per Dr. Tung Sandhu, daughter/ HCP: from [facility] [phone] now confirmed transferred to [facility] in [place] facility ) this week. She elected DNR status. Code status - DNR. Discussed with his [id number] Joanna Sandhu. Patient has 1 brother in close contact/also an alcoholic and 2 sisters whom he does not keep contact with. If daughter unwilling to make further medical decisions would fall back to 1 brother who likely would withdrawal care. [id number] Joanna will leave phone numbers of brother and 2 sisters Level 3 Larry Ruby MD April 06, 2017 08:31
[2017-04-06] MEDS: LACTOBACILLUS ACIDOPHILUS TAB PO SCH ×3 (08:49→17:46)
[2017-04-06] MEDS: LACTULOSE SYRUP 20 GM/30 ML CUP PO SCH ×2 (08:49→20:44)
[2017-04-06] MEDS: DOCUSATE SODIUM 100 MG/10 ML UDC PO SCH ×2 (08:49→20:44)
[2017-04-06] MEDS: RIFAXIMIN 550 MG TAB PO SCH ×2 (08:49→20:45)
[2017-04-06] MEDS: THIAMINE HCL 100 MG TAB PO SCH (08:49)
[2017-04-06] MEDS: NYSTATIN 100,000 U/GM PWD 15 GM BTL TOPICAL SCH ×2 (08:49→20:47)
[2017-04-06] MEDS: MUPIROCIN 2% OINT 1 APPLIC/GM SYR EACH NARE SCH ×2 (08:50→20:45)
[2017-04-06] MEDS: CHLORHEXIDINE 0.12% (ORAL KIT) 15 ML CUP MT SCH ×2 (08:50→21:50)
[2017-04-06] MEDS: ARTIFICIAL TEARS OPTH SOLN 15 ML BTL EACH EYE SCH ×3 (08:50→17:46)
[2017-04-06] MEDS: PANTOPRAZOLE SODIUM 40 MG VIAL IV SCH (08:51)
[2017-04-06] MEDS: SODIUM CHLORIDE 0.9% FLUSH 10 ML FLUSH IV FLUSH SCH ×2 (08:52→20:45)
[2017-04-06] MEDS: SODIUM CHLORIDE 0.9% FLUSH 10 ML FLUSH IVF SCH (08:52)
[2017-04-06] MEDS: OLANZapine ODT 5 MG TAB PO SCH ×2 (14:00→21:52)
[2017-04-07] VITALS (20 sets, daily range): BP systolic 114–122; BP diastolic 72–83; PULSE 87–108; RESP 21–36; TEMP 98.8–100.8; O2SAT 93–100
[2017-04-07] MEDS: INSULIN NovoLIN REGULAR SUPPLEMENTAL SCALE SQ SCH ×7 (03:40→23:08)
[2017-04-07] MEDS: AMPICILLIN-SULBACTAM INJ 3 GM in SODIUM CHLORIDE 0.9% INJ 100 ML IV SCH ×4 (03:52→23:08)
[2017-04-07 05:28] LABS: AUTOMATED NEUTROPHIL # 10.4 TH/MM3 (1.8-7.7); BASOPHIL % 0.2 % (0.0-2.0); EOSINOPHIL % 0.1 % (0.0-4.0); HEMATOCRIT 27.4 % (39.0-51.0); HEMO FLAGS DIFF FINAL; LYMPH % 7.8 % (9.0-44.0); LYMPHOCYTE # 0.9 TH/MM3 (1.0-4.8); MEAN CELL VOLUME 100.1 FL (80.0-100.0); MEAN CORPUSCULAR HEMOGLOBIN 33.9 PG (27.0-34.0); MEAN CORPUSCULAR HGB CONC 33.9 % (32.0-36.0); MONO % 5.8 % (0.0-8.0); NEUT % 86.1 % (16.0-70.0); PLATELET COUNT 341 TH/MM3 (150-450); RED BLOOD COUNT 2.73 MIL/MM3 (4.50-5.90); RED CELL DISTRIBUTION WIDTH 16.1 % (11.6-17.2); WHITE BLOOD COUNT 12.1 TH/MM3 (4.0-11.0)
[2017-04-07 05:40] LABS: ALKALINE PHOSPHATASE 447 U/L (45-117); ALT (GPT) 119 U/L (12-78); ANION GAP 9 MEQ/L (5-15); AST (GOT) 194 U/L (15-37); BICARBONATE 25.5 MEQ/L (21.0-32.0); BLOOD UREA NITROGEN 22 MG/DL (7-18); CHLORIDE 109 MEQ/L (98-107); GLOMERULAR FILTRATION RATE 117 ML/MIN (>89); MAGNESIUM 1.7 MG/DL (1.5-2.5); SODIUM (NA) 143 MEQ/L (136-145); TOTAL BILIRUBIN ADULT 1.7 MG/DL (0.2-1.0)
[2017-04-07 05:57] LABS: POTASSIUM 2.9 MEQ/L (3.5-5.1)
[2017-04-07] MEDS: METOCLOPRAMIDE HCL 10 MG/2 ML VIAL IV PUSH SCH ×3 (06:12→21:15)
[2017-04-07] MEDS: HEPARIN SODIUM - SQ 10,000 UNITS/ML VIAL SQ SCH ×3 (06:12→21:16)
[2017-04-07] MEDS: metroNIDAZOLE 500 MG TAB PO SCH ×3 (06:12→21:15)
[2017-04-07] MEDS: OLANZapine ODT 5 MG TAB PO SCH ×3 (06:13→21:15)
[2017-04-07] MEDS: POTASSIUM PHOSPHATE MONOBASIC 500 MG TAB PO PRN ×2 (06:13→11:41)
[2017-04-07] MEDS: MIDODRINE 5 MG TAB PO SCH ×3 (06:13→21:15)
[2017-04-07] MEDS: POTASSIUM CHLOR 20 MEQ PREMIX 100 ML IV PRN ×4 (06:13→15:05)
[2017-04-07] MEDS: LACTULOSE SYRUP 20 GM/30 ML CUP PO SCH ×2 (08:47→20:37)
[2017-04-07] MEDS: DOCUSATE SODIUM 100 MG/10 ML UDC PO SCH ×2 (08:47→20:37)
[2017-04-07] MEDS: LACTOBACILLUS ACIDOPHILUS TAB PO SCH ×3 (08:47→18:41)
[2017-04-07] MEDS: RIFAXIMIN 550 MG TAB PO SCH ×2 (08:47→20:37)
[2017-04-07] MEDS: THIAMINE HCL 100 MG TAB PO SCH (08:47)
[2017-04-07] MEDS: CHLORHEXIDINE 0.12% (ORAL KIT) 15 ML CUP MT SCH ×2 (08:47→20:35)
[2017-04-07] MEDS: HYDROCORTISONE SOD SUCCINATE 100 MG VIAL IV PUSH SCH ×2 (08:48→20:36)
[2017-04-07] MEDS: MUPIROCIN 2% OINT 1 APPLIC/GM SYR EACH NARE SCH ×2 (08:48→20:36)
[2017-04-07] MEDS: PANTOPRAZOLE SODIUM 40 MG VIAL IV SCH (08:48)
[2017-04-07] MEDS: SODIUM CHLORIDE 0.9% FLUSH 10 ML FLUSH IV FLUSH SCH ×2 (08:49→20:36)
[2017-04-07] MEDS: SODIUM CHLORIDE 0.9% FLUSH 10 ML FLUSH IVF SCH (08:49)
[2017-04-07] MEDS: NYSTATIN 100,000 U/GM PWD 15 GM BTL TOPICAL SCH ×2 (08:49→20:38)
[2017-04-07] MEDS: ARTIFICIAL TEARS OPTH SOLN 15 ML BTL EACH EYE SCH ×3 (08:50→18:41)
[2017-04-07] MEDS: RESP: TOBRAMYCIN SULFATE 80 MG/2 ML NEB NEB SCH ×2 (08:55→21:41)
[2017-04-07] MEDS ORDERED: POTASSIUM CHLORIDE 25 MEQ EFFERVESCENT TAB PO ONE (13:30)
--- NOTE | 2017-04-07 13:34 | HHI.CCPN ---
Subjective Remarks/Hospital Course This is a 61-year-old male with a past history of alcohol abuse and a prior admission in 2015 for severe life-threatening hyponatremia at that time with a serum sodium of 98. He presents today with what he states is a 13 day history of worsening fatigue and weakness. He is very altered and is very difficult to understand the patient. What I can understand from him, is that at some point during these 13 days he has fallen and hit his face. Otherwise he states he lays on the couch, and has not gotten not much. He states he drinks 1 beer in the morning, and 1 beer in the afternoon. He does endorse taking some Xanax to help him sleep. He denies other drug use. He denies chest pain, shortness of breath, fever, chills, nausea, vomiting, abdominal pain. It is very difficult to get him to answer anymore questions about his medical history. His speech is very slurred and he is trying to talk about how he misses his daughter. Emergency department he was found to have a serum sodium of 99, a bilirubin of 8.9, lactate of 9.8, ammonia of 60, CK of 7000, elevated troponin of 4.9 with a normal MB ratio, creatinine 1.5, serum bicarbonate of 13. His white count is 12 , platelets 112. INR 1.9. His MELD calculates at 26. 4/2: Sodium level rapidly corrected overnight, likely secondary to appropriate correction of severe life-threatening dehydration. NS fluids changed to 1/2NS and correction slowed down significantly. sodium up to 130 this AM. CK downtrending. however, patient remains severely hypotensive requiring Levophed to maintain a map > 65 mmHg. This AM, serum K 1.6 (confirmed). started replacement with 200meq KCl and recheck K. 03/04: persists in vasoplegic distributive shock. afebrile. no evidence of infection. wbc downtrending. persists with severe life-threatening electrolyte derangements. passed swallow eval for nectar thick liquids. sodium stable at 131. ck downtrending. 03/05: persists in distributive shock. echo yesterday with EF 30%, globally decreased function. milrinone added yesterday with improvement in vasopressor requirement. still with multiple electrolyte abnormalities despite very aggressive replacement. very poor appetite. sodium stable at 131, which appears to be around baseline for him, looking back at prior records. also became agitated and delirious yesterday, likely secondary to etoh withdraw. started on Ativan and Librium. 03/06: electrolyte derangements persist. placed on continuous NaPhos infusion x 24h due to severe life-threatening hypophosphatemia. serial K, phos checks. weaning off levophed, milrinone persists. still poor appetite. sodium jumped from 132 to 139, but no significant mental status change, and we did not increase sodium load. 03/07: still requiring high electrolyte replacement. milrinone weaned to 0.375 mcg /kg/min overnight. still doing well with that. delirium persists. 03/08 Remains on milrinone. Electrolyte improving. Remains very lethargic, intermittently follows commands 03/09: Continues to be lethargic but wakes up follows some commands. Remains on milrinone will DC today. T max 100.1, urine output adequate sodium is 143 03/10: More awake alert, ate 50% of break fast. Will DC Dobhoff. Discontinue arterial and central lines. Delirium also improved, remains weak 03/11: doing much better this morning. no complaints. still with poor appetite. electrolytes improved. 03/20: We consulted for respiratory failure. Patient was last seen in room 1415 CMP receiving oral cares and became acutely hypoxic saturations 82% with coarse breath sounds. Halicat called. Patient was placed on a Venturi mask 50 % with desaturations to the mid 90s. He received Solu-Medrol 20 mg IV 1, Lasix 40 mg IV [address] IM [facility] 521. Hemodynamically stable. Poor mentation 03/25: Reconsulted due to respiratory failure. Patient with gurgling/ transmitted upper airway sounds. Respiration the 50s. Decision made to orotracheally intubate. Noted to have been febrile with increased O2 course over the past 48 hours. 03/26: Afebrile. Requiring Nimbex drip for ventilator synchrony. Decreased urine output noted. Hemoglobin decreased likely dilutional. Tolerating tube feeding. Electrolytes been replaced. 03/27: Tmax 100.9. Currently 97.2. +6 L past 24 hours. Hemoglobin 8 transfuse overnight. Potassium 3. We'll discontinue Nimbex drip for vent synchrony today. 03/28: Afebrile. Negative fluid balance past 24 hours. Hemoglobin currently 9. Potassium 3.0. Currently on sedation vacation positive gag and otherwise unresponsive. 03/29: Tmax 103. Currently afebrile. Not tolerating tube feeds. Remains on Kiran-Synephrine. Did not tolerate sedation vacation back on Versed at 5 mg an hour fentanyl drip at 100 mcg an hour. One bowel movement. 03/30 Tube feeds remain on hold. On neosynephrine 40 mcg/min, RN states she has been weaning. Having BMs. On Versed 8 mg/hr and fentanyl 100 mcg/hr. 03/31 Off versed. Remains on fentanyl 100 mcg/hr. Having hiccups. Still on neosynephrine 40 mcg/min. Tolerating trickle feeds. Had 2 bowel movements 04/01: no meaningful change. still requires fentanyl for sedation. still on low- dose vasopressors. 04/02: no changes. still on levo @ 7 mcg/min. unable to wean off fentanyl due to tachycardia and tachypnea. 04/03: Off all sedation. On low-dose norepinephrine. Essentially unresponsive on the ventilator. Plan for likely withdrawal of care tomorrow 04/04: Off all sedation. Off all vasopressors. According to overnight RN was following commands. Will open eyes but not following commands this AM. 04/05 No events overnight. Afebrile On no sedation. 04/06: Resting comfortably in bed. Eyes are open. Moving head back and forth continuously. Weakly following commands with his upper and lower extremities. Subjective: 04/07: Low-grade temperatures overnight. 99.8. Eyes are open. Moving back and forth. Positive BM. Continues to be following commands. Objective Vital Signs Date Time Temp Pulse Resp B/P Pulse Ox O2 Delivery O2 Flow Rate FiO2 04/07/17 11:22 93 35 04/07/17 10:00 108 04/07/17 08:00 99.8 28 114/80 Intake and Output 04/06/17 04/06/17 04/07/17 08:00 16:00 00:00 Intake Total 635 ml 900 ml 588 ml Output Total 400 ml 550 ml 300 ml Balance 235 ml 350 ml 288 ml Result Diagram: 04/07/17 0436 04/07/17 0436 Other Results Microbiology Date/Time Procedure Status Source Growth 04/05/17 23:15 Urine Culture Received Urine Catheterized Urine Pending Imaging Last Impressions Chest X-Ray 03/30/17 0600 Signed Impressions: Service Date/Time: Thursday, March 30, 2017 01:30 - CONCLUSION: No significant change. Bilateral infiltrates and small pleural effusions persist. Casper Clifton MD Abdomen X-Ray 03/30/17 0600 Signed Impressions: Service Date/Time: Thursday, March 30, 2017 01:32 - CONCLUSION: Nonobstructive bowel gas pattern. Dobbhoff feeding tube tip at the level of the third portion of the duodenum. Casper Clifton MD Head Magnetic Resonance Angiography 03/28/17 0000 Signed Impressions: Service Date/Time: March 17:22 - CONCLUSION: Unremarkable examination. Bety Castillo MD Brain MRI 03/28/17 0000 Signed Impressions: Service Date/Time: March 17:22 - CONCLUSION: 1. 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 Small subacute ischemic bilateral thalamic infarcts. 2. There has been no significant change when compared to the prior exam. Yinka Harman MD Lower Extremity Ultrasound 03/25/17 0000 Signed Impressions: Service Date/Time: Saturday, March 25, 2017 22:17 - CONCLUSION: No evidence of DVT. Víctor Rosas MD CT Angiography 03/21/17 0000 Signed Impressions: Service Date/Time: March 00:33 - CONCLUSION: No evidence of pulmonary embolism is identified. Mild atelectasis left lung base. Fluid or phlegm within the trachea. Milo Muhammad MD Abdomen Ultrasound 03/20/17 0000 Signed Impressions: Service Date/Time: Monday, March 20, 2017 11:38 - CONCLUSION: 1. Hepatosplenomegaly without focal lesion. 2. Probable sludge within the lumen of the gallbladder. No intrahepatic duct. Cheo Martínez MD Shoulder X-Ray 03/02/17 1404 Signed Impressions: Service Date/Time: Thursday, March 02, 2017 15:18 - CONCLUSION: No evidence of recent bony injury. Deformity of the lateral left clavicle suggests old healed trauma. Cheo Martínez MD Maxillofacial CT 03/02/17 1342 Signed Impressions: Service Date/Time: Thursday, March 02, 2017 14:52 - CONCLUSION: Negative CT of the facial bones. Cheo Martínez MD Head CT 03/02/17 1342 Signed Impressions: Service Date/Time: Thursday, March 02, 2017 14:52 - CONCLUSION: 1. Prominent scalp swelling left frontal and parietal region. No skull fracture seen. 2. Intracranial contents are intact without acute finding. Cheo Martínez MD Chest CT 03/02/17 1342 Signed Impressions: Service Date/Time: Thursday, March 02, 2017 15:04 - CONCLUSION: 1. Abnormal appearance of the lateral left clavicle suggesting a combination of acute and chronic bony injury. Fracture lucencies without bridging callus is seen the region of the coracoid process. 2. The lungs are clear. No evidence of pneumothorax. 3. Moderate size hiatus hernia. Cheo Martínez MD Cervical Spine CT 03/02/17 134 Signed Impressions: Service Date/Time: Thursday, March 02, 2017 14:52 - CONCLUSION: Negative CT cervical spine. Cheo Martínez MD Abdomen/Pelvis CT 03/02/17 1342 Signed Impressions: Service Date/Time: Thursday, March 02, 2017 15:04 - CONCLUSION: Moderate size hiatus hernia. Scattered small sigmoid diverticula. Otherwise negative exam. Cheo Martínez MD Objective Remarks GENERAL: 61-year-old chronically ill appearing male, currently critically ill, orotracheally intubated. HEENT: Healing abrasion left side scalp. TIMOTHY. Scleral icterus. Very poor dentition. NECK: Trachea Midline RESP: Coarse breath sounds bilaterally. Few wheezes. CARDIOVASCULAR: Tachycardia, RR. ABDOMEN: Slightly distended but soft, bowel sounds present, tolerating tube feeds. : Johns in place with conrad urine output. mild/moderate scrotal edema. MUSCULOSKELETAL: No obvious deformity. 1+ edema all extremities NEUROLOGICAL: + gag and cough. Opens eyes and weakly following commands with upper and lower extremities. Date of Insertion: Mar 25, 2017 A/P Assessment and Plan Neuro/Psych: Osmotic demyelination syndrome Acute toxic metabolic encephalopathy secondary to hypercarbic respiratory failure Alcohol dependence History of EtOH induced seizure withdrawal Chronic benzodiazepine use Bilateral thalamic CVA Off all sedation oxycodone 5 mg every 4 hours as needed for pain Zyprexa wean to 5 mg po twice a day Goal of RASS 0 MRI 03/21 - T1/T2 prolonged with sparing of this central appears final fibers. 2 small spots in the posterior central spinal tract consistent with Osmotic demyelination syndrome. ODS most likely from correction of Na, with underlying alcoholism. MRI brain 03/28 revealed subacute bilateral thalamic lacunar infarcts, CPM. CT head 03/05 revealed no acute intracranial findings Continue thiamine Seen by neurology/Dr. Mazariegos. Respiratory: Acute hypoxemic hypercapnic respiratory failure PRVC 18/550/1.01/06/35 Ventilator bundle Bronchodilator therapy every 4 hours and as needed Duoneb q 6hours Attempt PSV trial today 15/ and 35% Cardiovascular: Chronic Systolic heart failure Echocardiogram 03/04 revealed EF 35-40%. Mild mR. Left atrium dilated. JANE 33 mmHg TSH within normal limits 0.8 Wean off hydrocortisone currently 50 every 12 continue to wean norepinephrine for goal map > 65 Continue midodrine 10 mg 3 times Renal: Acute Kidney Injury- Rhabdomyolysis- resolved ODS-see neuro Monitor renal function, I/O's, electrolytes replacement as needed 2 g mag sulfate IV 1 now. GI: EtOH cirrhosis Hyperammonemia Hiatal hernia Sigmoid diverticulosis History of umbilical hernia repair Continue tub feeds Jevity 1.5 with goal rate 60ml/hr On Xifaxan 550 twice a day/lactulose 30 twice a day. Recheck ammonia in a.m. LFT is elevated. Ultrasound liver-hepatosplenomegaly. Sludge in gallbladder Patient on Prilosec 20 mg by mouth daily at home. Currently in IV Protonix Reglan 10 every 8 hours/prokinetic agent. Heme: Leukocytosis Macrocytic anemia Monitor CBC B12 1452, Folate 15.2. TSH 0.8. ID: Likely aspiration pneumonia Escherichia coli UTI 03/11 - completed therapy Acinetobacter pneumonia Pertinent cultures 04/05 - urine -no growth 03/29 - blood cultures 2 - NGTD 03/25 - sputum --Acinetobacter. 03/25 - urine - NGTD 03/25 - blood cultures 2 -no growth 03/22 - urine - no growth 03/22 - blood cultures 2 - negative 03/20 - blood cultures 2 - no growth 03/11 - urine - Escherichia coli 03/02 - blood cultures 2 - no growth Check sputum today 04/[address] Dimayuga/ID. Now on Unasyn per D since 03/28, Flagyl po 03/24 . sputum culture from 03/25 positive for Acinetobacter, sensitive to Unasyn. . Tobramycin aerosols added 04/02/17 through 04/09 Endocrine: Hyperglycemia of critical illness History of hypothyroidism SSI with Accu-Cheks every 4 hours to maintain euglycemia MSK: History of old left clavicle fracture PT/OT evaluate and treat FEN: Hypokalemia Receive 40 mEq KCl and 2 g mag sulfate 1. Recheck potassium at 1800 and in a.m. Access Peripheral IV. Central line if indicated Prophylaxis: GI - Protonix DVT - SCD/heparin subcutaneous Palliative care is following. For possible withdrawal of care. Per Dr. Tung Sandhu, daughter/ HCP: from [facility] [phone] now confirmed transferred to [facility] in [facility] ) this week. She elected DNR status. Code status - DNR. Discussed with his [id number] Joanna Sandhu. Patient has 1 brother in close contact/also an alcoholic and 2 sisters whom he does not keep contact with. If daughter unwilling to make further medical decisions would fall back to 1 brother who likely would withdrawal care. [id number] Joanna will leave phone numbers of brother and 2 sisters Level 3 Noted patient more awake and interactive. We'll need to discuss with family prior to extubation patient is currently DNR Larry Ruby MD April 07, 2017 13:34
[2017-04-07] MEDS: MAGNESIUM SULFATE 1 GM PREMIX 100 ML IV SCH ×2 (15:06→18:48)
[2017-04-07] MEDS: RESP: ALBUTEROL 2.5 MG/IPRATROPIUM 0.5 MG NEB (SCH) NEB ×2 (15:25→19:51)
[2017-04-07] MEDS: ACETAMINOPHEN 325 MG TAB PO PRN (20:39)
[2017-04-08] VITALS (18 sets, daily range): BP systolic 104–121; BP diastolic 70–79; PULSE 91–104; RESP 18–38; TEMP 98.4–100.4; O2SAT 94–97
[2017-04-08] MEDS: RESP: ALBUTEROL 2.5 MG/IPRATROPIUM 0.5 MG NEB (SCH) NEB ×5 (00:07→22:31)
[2017-04-08 00:13] LABS: ALKALINE PHOSPHATASE 487 U/L (45-117); ALT (GPT) 138 U/L (12-78); ANION GAP 10 MEQ/L (5-15); AST (GOT) 206 U/L (15-37); BICARBONATE 24.1 MEQ/L (21.0-32.0); BLOOD UREA NITROGEN 23 MG/DL (7-18); CHLORIDE 109 MEQ/L (98-107); GLOMERULAR FILTRATION RATE 108 ML/MIN (>89); SODIUM (NA) 143 MEQ/L (136-145)
[2017-04-08] MEDS: SODIUM PHOSPHATE INJ 30 MMOL in SODIUM CHLOR 0.9% 250 ML INJ 240 ML IV PRN (01:59)
[2017-04-08] MEDS: INSULIN NovoLIN REGULAR SUPPLEMENTAL SCALE SQ SCH ×5 (04:00→20:00)
[2017-04-08] MEDS: AMPICILLIN-SULBACTAM INJ 3 GM in SODIUM CHLORIDE 0.9% INJ 100 ML IV SCH ×3 (04:57→17:10)
[2017-04-08] MEDS: METOCLOPRAMIDE HCL 10 MG/2 ML VIAL IV PUSH SCH ×3 (04:57→20:18)
[2017-04-08] MEDS: metroNIDAZOLE 500 MG TAB PO SCH ×3 (04:58→20:18)
[2017-04-08] MEDS: OLANZapine ODT 5 MG TAB PO SCH ×2 (04:58→14:29)
[2017-04-08] MEDS: MIDODRINE 5 MG TAB PO SCH ×3 (04:58→20:19)
[2017-04-08] MEDS: HEPARIN SODIUM - SQ 10,000 UNITS/ML VIAL SQ SCH ×2 (04:58→14:30)
[2017-04-08 05:49] LABS: AUTOMATED NEUTROPHIL # 11.4 TH/MM3 (1.8-7.7); EOSINOPHIL % 0.1 % (0.0-4.0); HEMATOCRIT 27.2 % (39.0-51.0); HEMO FLAGS DIFF FINAL; LYMPH % 6.4 % (9.0-44.0); LYMPHOCYTE # 0.8 TH/MM3 (1.0-4.8); MEAN CELL VOLUME 100.3 FL (80.0-100.0); MEAN CORPUSCULAR HEMOGLOBIN 32.8 PG (27.0-34.0); MEAN CORPUSCULAR HGB CONC 32.7 % (32.0-36.0); MONO % 4.9 % (0.0-8.0); NEUT % 88.6 % (16.0-70.0); PLATELET COUNT 308 TH/MM3 (150-450); RED BLOOD COUNT 2.71 MIL/MM3 (4.50-5.90); RED CELL DISTRIBUTION WIDTH 15.9 % (11.6-17.2); WHITE BLOOD COUNT 12.9 TH/MM3 (4.0-11.0)
--- NOTE | 2017-04-08 06:02 | RADRPT ---
EXAM DATE/TIME: 04/08/2017 05:10 [facility] COMPARISON: CHEST SINGLE AP, March 30, 2017, 1:30. INDICATIONS : Shortness of breath, possible pulmonary disease. MEDICAL HISTORY : None. SURGICAL HISTORY : None. ENCOUNTER: Subsequent ACUITY: 1 month PAIN SCORE: Non-responsive. LOCATION: Bilateral chest FINDINGS: A single portable frontal view the chest shows persistent bilateral pulmonary infiltrates. There has been improvement relative to the prior study. Tip of the endotracheal tube 3 cm from the joanie. Tip of the weighted feeding tube in the region of the body of the stomach. Heart normal size. No effusion s. CONCLUSION: 1. Endotracheal tube and weighted feeding tube. 2. Bilateral pulmonary infiltrates. Some improvement from the prior study. Cheo Barrera Jr., MD on April 08, 2017 at 6:00 Board Certified Radiologist. This report was verified electronically.
[2017-04-08] MEDS: ARTIFICIAL TEARS OPTH SOLN 15 ML BTL EACH EYE SCH ×3 (09:00→17:11)
[2017-04-08] MEDS: NYSTATIN 100,000 U/GM PWD 15 GM BTL TOPICAL SCH ×2 (09:00→21:00)
[2017-04-08] MEDS: SODIUM CHLORIDE 0.9% FLUSH 10 ML FLUSH IVF SCH (09:00)
[2017-04-08] MEDS: LACTULOSE SYRUP 20 GM/30 ML CUP PO SCH ×2 (09:06→20:17)
[2017-04-08] MEDS: THIAMINE HCL 100 MG TAB PO SCH (09:06)
[2017-04-08] MEDS: LACTOBACILLUS ACIDOPHILUS TAB PO SCH ×3 (09:06→17:10)
[2017-04-08] MEDS: PANTOPRAZOLE SODIUM 40 MG VIAL IV SCH (09:06)
[2017-04-08] MEDS: RIFAXIMIN 550 MG TAB PO SCH ×2 (09:06→20:18)
[2017-04-08] MEDS: CHLORHEXIDINE 0.12% (ORAL KIT) 15 ML CUP MT SCH ×2 (09:06→20:12)
[2017-04-08] MEDS: DOCUSATE SODIUM 100 MG/10 ML UDC PO SCH ×2 (09:06→20:17)
[2017-04-08] MEDS: HYDROCORTISONE SOD SUCCINATE 100 MG VIAL IV PUSH SCH ×2 (09:07→20:17)
[2017-04-08] MEDS: SODIUM CHLORIDE 0.9% FLUSH 10 ML FLUSH IV FLUSH SCH ×2 (09:07→20:16)
[2017-04-08] MEDS: MUPIROCIN 2% OINT 1 APPLIC/GM SYR EACH NARE SCH ×2 (09:07→20:16)
[2017-04-08] MEDS ORDERED: BUMETANIDE INJ 1 MG/4 ML VIAL IV PUSH ONE (10:00)
--- NOTE | 2017-04-08 10:07 | HHI.CCPN ---
Subjective Remarks/Hospital Course This is a 61-year-old male with a past history of alcohol abuse and a prior admission in 2015 for severe life-threatening hyponatremia at that time with a serum sodium of 98. He presents today with what he states is a 13 day history of worsening fatigue and weakness. He is very altered and is very difficult to understand the patient. What I can understand from him, is that at some point during these 13 days he has fallen and hit his face. Otherwise he states he lays on the couch, and has not gotten not much. He states he drinks 1 beer in the morning, and 1 beer in the afternoon. He does endorse taking some Xanax to help him sleep. He denies other drug use. He denies chest pain, shortness of breath, fever, chills, nausea, vomiting, abdominal pain. It is very difficult to get him to answer anymore questions about his medical history. His speech is very slurred and he is trying to talk about how he misses his daughter. Emergency department he was found to have a serum sodium of 99, a bilirubin of 8.9, lactate of 9.8, ammonia of 60, CK of 7000, elevated troponin of 4.9 with a normal MB ratio, creatinine 1.5, serum bicarbonate of 13. His white count is 12 , platelets 112. INR 1.9. His MELD calculates at 26. 4/2: Sodium level rapidly corrected overnight, likely secondary to appropriate correction of severe life-threatening dehydration. NS fluids changed to 1/2NS and correction slowed down significantly. sodium up to 130 this AM. CK downtrending. however, patient remains severely hypotensive requiring Levophed to maintain a map > 65 mmHg. This AM, serum K 1.6 (confirmed). started replacement with 200meq KCl and recheck K. 03/04: persists in vasoplegic distributive shock. afebrile. no evidence of infection. wbc downtrending. persists with severe life-threatening electrolyte derangements. passed swallow eval for nectar thick liquids. sodium stable at 131. ck downtrending. 03/05: persists in distributive shock. echo yesterday with EF 30%, globally decreased function. milrinone added yesterday with improvement in vasopressor requirement. still with multiple electrolyte abnormalities despite very aggressive replacement. very poor appetite. sodium stable at 131, which appears to be around baseline for him, looking back at prior records. also became agitated and delirious yesterday, likely secondary to etoh withdraw. started on Ativan and Librium. 03/06: electrolyte derangements persist. placed on continuous NaPhos infusion x 24h due to severe life-threatening hypophosphatemia. serial K, phos checks. weaning off levophed, milrinone persists. still poor appetite. sodium jumped from 132 to 139, but no significant mental status change, and we did not increase sodium load. 03/07: still requiring high electrolyte replacement. milrinone weaned to 0.375 mcg /kg/min overnight. still doing well with that. delirium persists. 03/08 Remains on milrinone. Electrolyte improving. Remains very lethargic, intermittently follows commands 03/09: Continues to be lethargic but wakes up follows some commands. Remains on milrinone will DC today. T max 100.1, urine output adequate sodium is 143 03/10: More awake alert, ate 50% of break fast. Will DC Dobhoff. Discontinue arterial and central lines. Delirium also improved, remains weak 03/11: doing much better this morning. no complaints. still with poor appetite. electrolytes improved. 03/20: We consulted for respiratory failure. Patient was last seen in room 1415 CMP receiving oral cares and became acutely hypoxic saturations 82% with coarse breath sounds. Halicat called. Patient was placed on a Venturi mask 50 % with desaturations to the mid 90s. He received Solu-Medrol 20 mg IV 1, Lasix 40 mg IV 1 and was transferred IM [facility] 521. Hemodynamically stable. Poor mentation 03/25: Reconsulted due to respiratory failure. Patient with gurgling/ transmitted upper airway sounds. Respiration the 50s. Decision made to orotracheally intubate. Noted to have been febrile with increased O2 course over the past 48 hours. 03/26: Afebrile. Requiring Nimbex drip for ventilator synchrony. Decreased urine output noted. Hemoglobin decreased likely dilutional. Tolerating tube feeding. Electrolytes been replaced. 03/27: Tmax 100.9. Currently 97.2. +6 L past 24 hours. Hemoglobin 8 transfuse overnight. Potassium 3. We'll discontinue Nimbex drip for vent synchrony today. 03/28: Afebrile. Negative fluid balance past 24 hours. Hemoglobin currently 9. Potassium 3.0. Currently on sedation vacation positive gag and otherwise unresponsive. 03/29: Tmax 103. Currently afebrile. Not tolerating tube feeds. Remains on Kirna-Synephrine. Did not tolerate sedation vacation back on Versed at 5 mg an hour fentanyl drip at 100 mcg an hour. One bowel movement. 03/30 Tube feeds remain on hold. On neosynephrine 40 mcg/min, RN states she has been weaning. Having BMs. On Versed 8 mg/hr and fentanyl 100 mcg/hr. 03/31 Off versed. Remains on fentanyl 100 mcg/hr. Having hiccups. Still on neosynephrine 40 mcg/min. Tolerating trickle feeds. Had 2 bowel movements 04/01: no meaningful change. still requires fentanyl for sedation. still on low- dose vasopressors. 04/02: no changes. still on levo @ 7 mcg/min. unable to wean off fentanyl due to tachycardia and tachypnea. 04/03: Off all sedation. On low-dose norepinephrine. Essentially unresponsive on the ventilator. Plan for likely withdrawal of care tomorrow 04/04: Off all sedation. Off all vasopressors. According to overnight RN was following commands. Will open eyes but not following commands this AM. 04/05 No events overnight. Afebrile On no sedation. 04/06: Resting comfortably in bed. Eyes are open. Moving head back and forth continuously. Weakly following commands with his upper and lower extremities. Subjective: 04/07: Low-grade temperatures overnight. 99.8. Eyes are open. Moving back and forth. Positive BM. Continues to be following commands. 04/08 Patient remains intubated on no sedation awake and follows commands. Tmax 100.8 Objective Vital Signs Date Time Temp Pulse Resp B/P Pulse Ox O2 Delivery O2 Flow Rate FiO2 04/08/17 08:54 97 35 04/08/17 06:00 91 04/08/17 04:54 21 04/08/17 04:00 99.9 104/70 Intake and Output 04/07/17 04/07/17 04/07/17 07:59 15:59 23:59 Intake Total 884 ml 1236 ml 739 ml Output Total 400 ml 850 ml 250 ml Balance 484 ml 386 ml 489 ml Result Diagram: 04/08/17 0452 04/07/17 2314 Other Results Laboratory Tests Test 04/07/17 04/07/17 04/08/17 18:20 23:14 04:52 Potassium Level 4.2 MEQ/L 4.0 MEQ/L Sodium Level 143 MEQ/L Chloride Level 109 MEQ/L Carbon Dioxide Level 24.1 MEQ/L Anion Gap 10 MEQ/L Blood Urea Nitrogen 23 MG/DL Creatinine 0.74 MG/DL Estimat Glomerular Filtration 108 ML/MIN Rate Random Glucose 150 MG/DL Calcium Level 7.5 MG/DL Phosphorus Level 2.2 MG/DL Magnesium Level 2.0 MG/DL Total Bilirubin 2.0 MG/DL Aspartate Amino Transf 206 U/L (AST/SGOT) Alanine Aminotransferase 138 U/L (ALT/SGPT) Alkaline Phosphatase 487 U/L Total Protein 5.7 GM/DL Albumin 1.6 GM/DL White Blood Count 12.9 TH/MM3 Red Blood Count 2.71 MIL/MM3 Hemoglobin 8.9 GM/DL Hematocrit 27.2 % Mean Corpuscular Volume 100.3 FL Mean Corpuscular Hemoglobin 32.8 PG Mean Corpuscular Hemoglobin 32.7 % Concent Red Cell Distribution Width 15.9 % Platelet Count 308 TH/MM3 Mean Platelet Volume 7.5 FL Neutrophils (%) (Auto) 88.6 % Lymphocytes (%) (Auto) 6.4 % Monocytes (%) (Auto) 4.9 % Eosinophils (%) (Auto) 0.1 % Basophils (%) (Auto) 0.0 % Neutrophils # (Auto) 11.4 TH/MM3 Lymphocytes # (Auto) 0.8 TH/MM3 Monocytes # (Auto) 0.6 TH/MM3 Eosinophils # (Auto) 0.0 TH/MM3 Basophils # (Auto) 0.0 TH/MM3 CBC Comment DIFF FINAL Differential Comment Imaging Last Impressions Chest X-Ray 04/08/17 0600 Signed Impressions: Service Date/Time: Saturday, April 08, 2017 05:10 - CONCLUSION: 1. Endotracheal tube and weighted feeding tube. 2. Bilateral pulmonary infiltrates. Some improvement from the prior study. Cheo Barrera Jr., MD Abdomen X-Ray 03/30/17 0600 Signed Impressions: Service Date/Time: Thursday, March 30, 2017 01:32 - CONCLUSION: Nonobstructive bowel gas pattern. Dobbhoff feeding tube tip at the level of the third portion of the duodenum. Casper Clifton MD Head Magnetic Resonance Angiography 03/28/17 0000 Signed Impressions: Service Date/Time: March 17:22 - CONCLUSION: Unremarkable examination. Bety Castillo MD Brain MRI 03/28/17 0000 Signed Impressions: Service Date/Time: March 17:22 - CONCLUSION: 1. 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 Small subacute ischemic bilateral thalamic infarcts. 2. There has been no significant change when compared to the prior exam. Yinka Harman MD Lower Extremity Ultrasound 03/25/17 0000 Signed Impressions: Service Date/Time: Saturday, March 25, 2017 22:17 - CONCLUSION: No evidence of DVT. Víctor Rosas MD CT Angiography 03/21/17 0000 Signed Impressions: Service Date/Time: March 00:33 - CONCLUSION: No evidence of pulmonary embolism is identified. Mild atelectasis left lung base. Fluid or phlegm within the trachea. Milo Muhammad MD Abdomen Ultrasound 03/20/17 0000 Signed Impressions: Service Date/Time: Monday, March 20, 2017 11:38 - CONCLUSION: 1. Hepatosplenomegaly without focal lesion. 2. Probable sludge within the lumen of the gallbladder. No intrahepatic duct. Cheo Martínez MD Shoulder X-Ray 03/02/17 1404 Signed Impressions: Service Date/Time: Thursday, March 02, 2017 15:18 - CONCLUSION: No evidence of recent bony injury. Deformity of the lateral left clavicle suggests old healed trauma. Cheo Martínez MD Maxillofacial CT 03/02/17 1342 Signed Impressions: Service Date/Time: Thursday, March 02, 2017 14:52 - CONCLUSION: Negative CT of the facial bones. Cheo Martínez MD Head CT 03/02/17 1342 Signed Impressions: Service Date/Time: Thursday, March 02, 2017 14:52 - CONCLUSION: 1. Prominent scalp swelling left frontal and parietal region. No skull fracture seen. 2. Intracranial contents are intact without acute finding. Cheo Martínez MD Chest CT 03/02/17 1342 Signed Impressions: Service Date/Time: Thursday, March 02, 2017 15:04 - CONCLUSION: 1. Abnormal appearance of the lateral left clavicle suggesting a combination of acute and chronic bony injury. Fracture lucencies without bridging callus is seen the region of the coracoid process. 2. The lungs are clear. No evidence of pneumothorax. 3. Moderate size hiatus hernia. Cheo Martínez MD Cervical Spine CT 03/02/17 1342 Signed Impressions: Service Date/Time: Thursday, March 02, 2017 14:52 - CONCLUSION: Negative CT cervical spine. Cheo Martínez MD Abdomen/Pelvis CT 03/02/17 1342 Signed Impressions: Service Date/Time: Thursday, March 02, 2017 15:04 - CONCLUSION: Moderate size hiatus hernia. Scattered small sigmoid diverticula. Otherwise negative exam. Cheo Martínez MD Objective Remarks GENERAL: 61-year-old chronically ill appearing male, currently critically ill, orotracheally intubated. HEENT: Healing abrasion left side scalp. TIMOTHY. Scleral icterus. Very poor dentition. NECK: Trachea Midline RESP: Coarse breath sounds bilaterally. Few wheezes. CARDIOVASCULAR: Tachycardia, RR. ABDOMEN: Slightly distended but soft, bowel sounds present, tolerating tube feeds. : Johns in place with conrad urine output. mild/moderate scrotal edema. MUSCULOSKELETAL: No obvious deformity. 1+ edema all extremities NEUROLOGICAL: + gag and cough. Opens eyes and weakly following commands with upper and lower extremities. Date of Insertion: Mar 25, 2017 A/P Assessment and Plan Neuro/Psych: Osmotic demyelination syndrome Acute toxic metabolic encephalopathy secondary to hypercarbic respiratory failure Alcohol dependence History of EtOH induced seizure withdrawal Chronic benzodiazepine use Bilateral thalamic CVA Off all sedation oxycodone 5 mg every 4 hours as needed for pain Zyprexa wean to 5 mg po twice a day MRI 03/21 - T1/T2 prolonged with sparing of this central appears final fibers. 2 small spots in the posterior central spinal tract consistent with Osmotic demyelination syndrome. ODS most likely from correction of Na, with underlying alcoholism. MRI brain 03/28 revealed subacute bilateral thalamic lacunar infarcts, CPM. CT head 03/05 revealed no acute intracranial findings Continue thiamine Seen by neurology/Dr. Mazariegos. Respiratory: Acute hypoxemic hypercapnic respiratory failure PRVC 18/550/1.2/ Ventilator bundle Bronchodilator therapy every 4 hours and as needed Duoneb q 6hours SBT daily as pablo. Cardiovascular: Chronic Systolic heart failure Echocardiogram 03/04 revealed EF 35-40%. Mild mR. Left atrium dilated. JANE 33 mmHg TSH within normal limits 0.8 Wean off hydrocortisone currently 50 every 12 Continue midodrine 10 mg 3 times Monitor HR and BP keep MAP>65mmHg Renal: Acute Kidney Injury- Rhabdomyolysis- resolved ODS-see neuro Monitor renal function, I/O's, electrolytes replacement as needed Diurese with Bumex 1mg x1 GI: EtOH cirrhosis Hyperammonemia Hiatal hernia Sigmoid diverticulosis History of umbilical hernia repair Continue tub feeds Jevity 1.5 with goal rate 60ml/hr On Xifaxan 550 twice a day/lactulose 30 twice a day. Recheck ammonia in a.m. LFT is elevated. Ultrasound liver-hepatosplenomegaly. Sludge in gallbladder On IV Protonix Reglan 10 every 8 hours/prokinetic agent. Heme: Leukocytosis Macrocytic anemia Monitor CBC B12 1452, Folate 15.2. TSH 0.8. ID: Likely aspiration pneumonia Escherichia coli UTI 03/11 - completed therapy Acinetobacter pneumonia Pertinent cultures 04/05 - urine -no growth 03/29 - blood cultures 2 - NGTD 03/25 - sputum --Acinetobacter. 03/25 - urine - NGTD 03/25 - blood cultures 2 -no growth 03/22 - urine - no growth 03/22 - blood cultures 2 - negative 03/20 - blood cultures 2 - no growth 03/11 - urine - Escherichia coli 03/02 - blood cultures 2 - no growth Will panculture ( Blood cx x 2 sets, sputum, UA with cx if needed) Followed by Dr. Lisa/ID. Now on Unasyn per D since 03/28, Flagyl po 03/24 . sputum culture from 03/25 positive for Acinetobacter, sensitive to Unasyn. . Tobramycin aerosols added 04/02/17 through 04/09 Endocrine: Hyperglycemia of critical illness History of hypothyroidism SSI with Accu-Cheks every 4 hours to maintain euglycemia MSK: History of old left clavicle fracture PT/OT evaluate and treat FEN: Hypokalemia Receive 40 mEq KCl and 2 g mag sulfate 1. Recheck potassium at 1800 and in a.m. Access Peripheral IV. Central line if indicated Prophylaxis: GI - Protonix DVT - SCD/heparin subcutaneous Palliative care is following. Per Dr. Tung FaganTamanna Edson, daughter/ HCP: from [facility] now confirmed transferred to [facility] in [place] facility ( [phone]) Code status - DNR. Level 3 Meir Garcia MD April 08, 2017 10:07
[2017-04-08 10:54] LABS: MAGNESIUM 1.9 MG/DL (1.5-2.5)
[2017-04-08] MEDS: RESP: TOBRAMYCIN SULFATE 80 MG/2 ML NEB NEB SCH ×2 (12:56→20:00)
--- NOTE | 2017-04-08 13:26 | HHI.IDPN ---
Subjective Subjective Remarks Notes reviewed D/W RN On the vent, on CPAP Off pressors Low grade temps Antibiotics Unasyn Flagyl Tobra nebs Lines [facility] TLC Past Medical History ETOHism Allergies: Coded Allergies: PEANUTS (Unverified Allergy, Severe, 03/02/17) *MDRO Multi-Drug Resistant Organism (Verified Adverse Reaction, Unknown, ) MRSA PCR screen POSITIVE - 03/02/17 MDR Acinetobacter (sputum) - 03/25/17 Objective . Vital Signs Date Time Temp Pulse Resp B/P Pulse Ox O2 Delivery O2 Flow Rate FiO2 04/08/17 12:57 96 35 04/08/17 08:54 97 35 04/08/17 08:00 99.4 92 24 121/79 95 04/08/17 08:00 35 04/08/17 06:00 91 04/08/17 04:54 21 04/08/17 04:11 96 35 04/08/17 04:00 35 04/08/17 04:00 99.9 93 24 104/70 96 04/08/17 04:00 93 04/08/17 02:00 98 04/08/17 00:08 96 35 04/08/17 00:00 100.4 94 18 120/79 97 04/08/17 00:00 94 04/08/17 00:00 35 04/07/17 22:00 99 04/07/17 20:00 100.4 105 21 122/83 95 04/07/17 20:00 105 04/07/17 20:00 35 04/07/17 19:52 95 35 04/07/17 18:00 101 04/07/17 17:51 95 35 04/07/17 17:44 95 35 04/07/17 16:00 98.8 107 36 118/76 94 04/07/17 16:00 104 04/07/17 16:00 35 04/07/17 14:03 93 35 04/07/17 14:00 106 04/07/17 04/07/17 04/08/17 14:59 22:59 06:59 Intake Total 1236 ml 739 ml 676 ml Output Total 850 ml 250 ml 425 ml Balance 386 ml 489 ml 251 ml IV Total 756 ml 328 ml 319 ml Tube Feeding 480 ml 411 ml 357 ml Output Urine Total 350 ml 250 ml 225 ml Stool Total 500 ml 200 ml . Laboratory Tests Test 04/07/17 04/08/17 04:36 04:52 White Blood Count 12.1 TH/MM3 12.9 TH/MM3 Red Blood Count 2.73 MIL/MM3 2.71 MIL/MM3 Hemoglobin 9.3 GM/DL 8.9 GM/DL Hematocrit 27.4 % 27.2 % Mean Corpuscular Volume 100.1 FL 100.3 FL Mean Corpuscular Hemoglobin 33.9 PG 32.8 PG Mean Corpuscular Hemoglobin 33.9 % 32.7 % Concent Red Cell Distribution Width 16.1 % 15.9 % Platelet Count 341 TH/MM3 308 TH/MM3 Mean Platelet Volume 7.6 FL 7.5 FL Neutrophils (%) (Auto) 86.1 % 88.6 % Lymphocytes (%) (Auto) 7.8 % 6.4 % Monocytes (%) (Auto) 5.8 % 4.9 % Eosinophils (%) (Auto) 0.1 % 0.1 % Basophils (%) (Auto) 0.2 % 0.0 % Neutrophils # (Auto) 10.4 TH/MM3 11.4 TH/MM3 Lymphocytes # (Auto) 0.9 TH/MM3 0.8 TH/MM3 Monocytes # (Auto) 0.7 TH/MM3 0.6 TH/MM3 Eosinophils # (Auto) 0.0 TH/MM3 0.0 TH/MM3 Basophils # (Auto) 0.0 TH/MM3 0.0 TH/MM3 CBC Comment DIFF FINAL DIFF FINAL Differential Comment Laboratory Tests Test 04/07/17 04/07/17 04/07/17 04/08/17 04:36 18:20 23:14 10:12 Sodium Level 143 MEQ/L 143 MEQ/L Potassium Level 2.9 MEQ/L 4.2 MEQ/L 4.0 MEQ/L Chloride Level 109 MEQ/L 109 MEQ/L Carbon Dioxide Level 25.5 MEQ/L 24.1 MEQ/L Anion Gap 9 MEQ/L 10 MEQ/L Blood Urea Nitrogen 22 MG/DL 23 MG/DL Creatinine 0.69 MG/DL 0.74 MG/DL Estimat Glomerular Filtration 117 ML/MIN 108 ML/MIN Rate Random Glucose 154 MG/DL 150 MG/DL Calcium Level 7.7 MG/DL 7.5 MG/DL Phosphorus Level 2.2 MG/DL 2.2 MG/DL 2.8 MG/DL Magnesium Level 1.7 MG/DL 2.0 MG/DL 1.9 MG/DL Total Bilirubin 1.7 MG/DL 2.0 MG/DL Aspartate Amino Transf 194 U/L 206 U/L (AST/SGOT) Alanine Aminotransferase 119 U/L 138 U/L (ALT/SGPT) Alkaline Phosphatase 447 U/L 487 U/L Ammonia 27 MCMOL/L Total Protein 5.8 GM/DL 5.7 GM/DL Albumin 1.6 GM/DL 1.6 GM/DL Microbiology Date/Time Procedure Status Source Growth 04/05/17 23:15 Urine Culture - Preliminary Resulted Urine Catheterized Urine Nuvia Albicans Yeast-Id To Follow 04/08/17 10:07 Aerobic Blood Culture Received Blood Peripheral Pending 04/08/17 10:07 Anaerobic Blood Culture Received Blood Peripheral Pending 04/08/17 10:12 Aerobic Blood Culture Received Blood Peripheral Pending 04/08/17 10:12 Anaerobic Blood Culture Received Blood Peripheral Pending Imaging Chest X-Ray 04/08/17 0600 Signed Impressions: Service Date/Time: Saturday, April 08, 2017 05:10 - CONCLUSION: 1. Endotracheal tube and weighted feeding tube. 2. Bilateral pulmonary infiltrates. Some improvement from the prior study. Cheo Barrera Jr., MD Chest X-Ray 03/27/17 0600 Signed Impressions: Service Date/Time: Monday, March 27, 2017 02:33 - CONCLUSION: No significant interval change. Víctor Rosas MD Chest X-Ray 03/26/17 0600 Signed Impressions: Service Date/Time: Sunday, March 26, 2017 05:35 - CONCLUSION: Improving bilateral pulmonary infiltrates Víctor Rosas MD Chest X-Ray 03/25/17 1004 Signed Impressions: Service Date/Time: Saturday, March 25, 2017 10:03 - CONCLUSION: 1. Worsening bibasilar consolidation. 2. Endotracheal tube with tip at the thoracic inlet and should be advanced at least 3-4 cm. 3. Adequate placement of left jugular central line without pneumothorax. Logan Morgan MD Chest X-Ray 03/26/17 0600 Signed Impressions: Service Date/Time: Sunday, March 26, 2017 05:35 - CONCLUSION: Improving bilateral pulmonary infiltrates Víctor Rosas MD Lower Extremity Ultrasound 03/25/17 0000 Signed Impressions: Service Date/Time: Saturday, March 25, 2017 22:17 - CONCLUSION: No evidence of DVT. Víctor Rosas MD CT Angiography 03/21/17 0000 Signed Impressions: Service Date/Time: March 00:33 - CONCLUSION: No evidence of pulmonary embolism is identified. Mild atelectasis left lung base. Fluid or phlegm within the trachea. Milo Muhammad MD Brain MRI 03/20/17 0000 Signed Impressions: Service Date/Time: Monday, March 20, 2017 16:11 - CONCLUSION: Abnormal appearance to the ruthy with some extension into the cortical spinal tracts of the posterior thalamus was bilaterally. 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 Cheo Martínez MD Abdomen X-Ray 03/20/17 0000 Signed Impressions: Service Date/Time: Monday, March 20, 2017 18:12 - CONCLUSION: Tip of the Dobbhoff tube projecting towards the pylorus. Cheo Barrera Jr., MD Abdomen Ultrasound 03/20/17 0000 Signed Impressions: Service Date/Time: Monday, March 20, 2017 11:38 - CONCLUSION: 1. Hepatosplenomegaly without focal lesion. 2. Probable sludge within the lumen of the gallbladder. No intrahepatic duct. Cheo Martínez MD Shoulder X-Ray 03/02/17 1404 Signed Impressions: Service Date/Time: Thursday, March 02, 2017 15:18 - CONCLUSION: No evidence of recent bony injury. Deformity of the lateral left clavicle suggests old healed trauma. Cheo Martínez MD Maxillofacial CT 03/02/17 1342 Signed Impressions: Service Date/Time: Thursday, March 02, 2017 14:52 - CONCLUSION: Negative CT of the facial bones. Cheo Martínez MD Head CT 03/02/17 1342 Signed Impressions: Service Date/Time: Thursday, March 02, 2017 14:52 - CONCLUSION: 1. Prominent scalp swelling left frontal and parietal region. No skull fracture seen. 2. Intracranial contents are intact without acute finding. Cheo Martínez MD Chest CT 03/02/17 1342 Signed Impressions: Service Date/Time: Thursday, March 02, 2017 15:04 - CONCLUSION: 1. Abnormal appearance of the lateral left clavicle suggesting a combination of acute and chronic bony injury. Fracture lucencies without bridging callus is seen the region of the coracoid process. 2. The lungs are clear. No evidence of pneumothorax. 3. Moderate size hiatus hernia. Cheo Martínez MD Cervical Spine CT 03/02/17 1342 Signed Impressions: Service Date/Time: Thursday, March 02, 2017 14:52 - CONCLUSION: Negative CT cervical spine. Cheo Martínez MD Abdomen/Pelvis CT 03/02/17 1342 Signed Impressions: Service Date/Time: Thursday, March 02, 2017 15:04 - CONCLUSION: Moderate size hiatus hernia. Scattered small sigmoid diverticula. Otherwise negative exam. Cheo Martínez MD Chest X-Ray 03/25/17 1004 Signed Impressions: Service Date/Time: Saturday, March 25, 2017 10:03 - CONCLUSION: 1. Worsening bibasilar consolidation. 2. Endotracheal tube with tip at the thoracic inlet and should be advanced at least 3-4 cm. 3. Adequate placement of left jugular central line without pneumothorax. Logan Morgan MD Chest X-Ray 03/23/17 0000 Signed Impressions: Service Date/Time: Thursday, March 23, 2017 14:27 - CONCLUSION: 1. Feeding tube in place with what appears to be a loop in the hypopharynx. 2. Bibasilar areas of consolidation or atelectasis. Casper Vargas MD Physical Exam GENERAL: Awake on CPAP, focusing, NAD SKIN: Warm and dry. No generalized rash. Has some edema in his upper extremities. HEENT: Pupils equal round and reactive. Orally intubated. Poor dentition. A lot of oral secretions NECK: Supple, nontender, no meningeal signs. CARDIOVASCULAR: Regular rate and rhythm without murmurs, gallops, or rubs. Tachycardic. RESPIRATORY: Has few scattered rhonchi, decreased BS at bases GASTROINTESTINAL: Abdomen mildly distended, bowel sounds are present and normoactive, no reaction to palpation MUSCULOSKELETAL: Lower extremities without clubbing, cyanosis. Developing some pedal edema. No joint effusion. NEUROLOGICAL: Sedated. PSYCH: Unable to assess : Johns cath in place, urine looks better LINE: central line site ok Assessment & Plan Remarks IMPRESSION Sepsis syndrome, due to PNA - on vent - has MDR Acinetobacter MDR Acinetobacter PNA Septic shock, BP better Known ETOH abuse Encephalopathy - sepsis, ETOH, CPM Respiratory failure, tolerating CPAP Diarrhea, C diff negative Nuvia in UC, repeat UA normal, without Rx RECOMMENDATION Continue Unasyn for MDR Acinetobacter Continue Tobra nebs Continue Flagyl for now Family looking at withdrawal D/W RN Umm Lisa MD April 08, 2017 13:26
[2017-04-08 15:02] LABS: BLOOD, URINE NEG (NEG); GLUCOSE,URINE NEG (NEG); HYALINE CAST, URINE 1 /lpf (RARE); KETONE, URINE NEG (NEG); NITRITE,URINE NEG (NEG); URINE COLOR LIGHT-YELLOW (YELLW/STRAW)
[2017-04-08 15:05] LABS: COMMENT (UR) CATH-CULT NOT IND; CULTURE IF INDICATED CATH CULTURE NOT IND
--- NOTE | 2017-04-08 15:09 | HHI.HCPN ---
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 Unable to be reached at this time. Number provided for return call. Awaiting call to then provide daughter Tamanna with medical update. Heavy Threader Guido: [phone] Anna Marie Barrera, NIB INSPECTOR April 08, 2017 15:09
[2017-04-09] VITALS (24 sets, daily range): BP systolic 103–148; BP diastolic 68–100; PULSE 98–132; RESP 15–34; TEMP 98.4–98.9; O2SAT 92–97
[2017-04-09] MEDS: AMPICILLIN-SULBACTAM INJ 3 GM in SODIUM CHLORIDE 0.9% INJ 100 ML IV SCH ×5 (00:13→22:49)
[2017-04-09] MEDS: OLANZapine ODT 5 MG TAB PO SCH ×4 (00:14→21:05)
[2017-04-09] MEDS: HEPARIN SODIUM - SQ 10,000 UNITS/ML VIAL SQ SCH ×4 (00:15→21:06)
[2017-04-09] MEDS: RESP: ALBUTEROL 2.5 MG/IPRATROPIUM 0.5 MG NEB (SCH) NEB ×7 (00:27→23:47)
--- NOTE | 2017-04-09 00:29 | RADRPT ---
EXAM DATE/TIME: 04/08/2017 23:55 [place] COMPARISON: ABDOMEN SINGLE VIEW, March 20, 2017, 18:12. INDICATIONS : Dobhoff placement. MEDICAL HISTORY : None. SURGICAL HISTORY : None. ENCOUNTER: Subsequent ACUITY: 1 month PAIN SCORE: Non-responsive. LOCATION: Bilateral upper quadrant FINDINGS: A single portable semi-right view of the abdomen is blurred by motion artifact. A Dobbhoff tube is co iled in the stomach with the tip in the region of the body. No dilated loops of bowel seen within the upper abdomen. CONCLUSION: Dobbhoff tube coiled in the stomach. Cheo Barrera Jr., MD on April 09, 2017 at 0:27 Board Certified Radiologist. This report was verified electronically.
[2017-04-09] MEDS: INSULIN NovoLIN REGULAR SUPPLEMENTAL SCALE SQ SCH ×7 (04:00→23:54)
[2017-04-09] MEDS: METOCLOPRAMIDE HCL 10 MG/2 ML VIAL IV PUSH SCH ×3 (05:40→21:05)
[2017-04-09] MEDS: MIDODRINE 5 MG TAB PO SCH ×3 (05:40→21:05)
[2017-04-09] MEDS: metroNIDAZOLE 500 MG TAB PO SCH ×3 (05:40→21:05)
[2017-04-09 05:55] LABS: AUTOMATED NEUTROPHIL # 13.3 TH/MM3 (1.8-7.7); BASOPHIL % 0.3 % (0.0-2.0); EOSINOPHIL % 0.1 % (0.0-4.0); HEMATOCRIT 28.9 % (39.0-51.0); HEMO FLAGS DIFF FINAL; LYMPH % 8.9 % (9.0-44.0); LYMPHOCYTE # 1.4 TH/MM3 (1.0-4.8); MEAN CELL VOLUME 100.1 FL (80.0-100.0); MEAN CORPUSCULAR HEMOGLOBIN 32.8 PG (27.0-34.0); MEAN CORPUSCULAR HGB CONC 32.8 % (32.0-36.0); MONO % 5.1 % (0.0-8.0); NEUT % 85.6 % (16.0-70.0); PLATELET COUNT 299 TH/MM3 (150-450); RED BLOOD COUNT 2.88 MIL/MM3 (4.50-5.90); RED CELL DISTRIBUTION WIDTH 16.1 % (11.6-17.2); WHITE BLOOD COUNT 15.5 TH/MM3 (4.0-11.0)
[2017-04-09 06:29] LABS: ALT (GPT) 129 U/L (12-78); ANION GAP 11 MEQ/L (5-15); AST (GOT) 158 U/L (15-37); BICARBONATE 25.2 MEQ/L (21.0-32.0); BLOOD UREA NITROGEN 22 MG/DL (7-18); CHLORIDE 109 MEQ/L (98-107); GLOMERULAR FILTRATION RATE 126 ML/MIN (>89); MAGNESIUM 1.9 MG/DL (1.5-2.5); POTASSIUM 3.2 MEQ/L (3.5-5.1); SODIUM (NA) 145 MEQ/L (136-145)
[2017-04-09 06:31] LABS: ALKALINE PHOSPHATASE 462 U/L (45-117)
[2017-04-09] MEDS: RESP: TOBRAMYCIN SULFATE 80 MG/2 ML NEB NEB SCH (08:33)
[2017-04-09] MEDS: RIFAXIMIN 550 MG TAB PO SCH ×2 (09:00→21:04)
[2017-04-09] MEDS: ARTIFICIAL TEARS OPTH SOLN 15 ML BTL EACH EYE SCH ×3 (09:00→17:13)
[2017-04-09] MEDS: LACTULOSE SYRUP 20 GM/30 ML CUP PO SCH ×2 (09:00→21:04)
[2017-04-09] MEDS: DOCUSATE SODIUM 100 MG/10 ML UDC PO SCH ×2 (09:00→21:00)
[2017-04-09] MEDS: THIAMINE HCL 100 MG TAB PO SCH (09:00)
[2017-04-09] MEDS: SODIUM CHLORIDE 0.9% FLUSH 10 ML FLUSH IVF SCH (09:00)
[2017-04-09] MEDS: LACTOBACILLUS ACIDOPHILUS TAB PO SCH ×3 (09:00→17:13)
[2017-04-09] MEDS: POTASSIUM CHLOR 40 MEQ PREMIX 100 ML IV PRN ×2 (09:42→17:13)
[2017-04-09] MEDS: CHLORHEXIDINE 0.12% (ORAL KIT) 15 ML CUP MT SCH ×2 (09:50→21:03)
[2017-04-09] MEDS: PANTOPRAZOLE SODIUM 40 MG VIAL IV SCH (09:50)
[2017-04-09] MEDS: SODIUM CHLORIDE 0.9% FLUSH 10 ML FLUSH IV FLUSH SCH ×2 (09:50→21:00)
[2017-04-09] MEDS: MUPIROCIN 2% OINT 1 APPLIC/GM SYR EACH NARE SCH ×2 (09:51→21:03)
[2017-04-09] MEDS: HYDROCORTISONE SOD SUCCINATE 100 MG VIAL IV PUSH SCH ×2 (09:51→21:04)
--- NOTE | 2017-04-09 10:28 | HHI.CCPN ---
Subjective Remarks/Hospital Course This is a 61-year-old male with a past history of alcohol abuse and a prior admission in 2015 for severe life-threatening hyponatremia at that time with a serum sodium of 98. He presents today with what he states is a 13 day history of worsening fatigue and weakness. He is very altered and is very difficult to understand the patient. What I can understand from him, is that at some point during these 13 days he has fallen and hit his face. Otherwise he states he lays on the couch, and has not gotten not much. He states he drinks 1 beer in the morning, and 1 beer in the afternoon. He does endorse taking some Xanax to help him sleep. He denies other drug use. He denies chest pain, shortness of breath, fever, chills, nausea, vomiting, abdominal pain. It is very difficult to get him to answer anymore questions about his medical history. His speech is very slurred and he is trying to talk about how he misses his daughter. Emergency department he was found to have a serum sodium of 99, a bilirubin of 8.9, lactate of 9.8, ammonia of 60, CK of 7000, elevated troponin of 4.9 with a normal MB ratio, creatinine 1.5, serum bicarbonate of 13. His white count is 12 , platelets 112. INR 1.9. His MELD calculates at 26. 4/2: Sodium level rapidly corrected overnight, likely secondary to appropriate correction of severe life-threatening dehydration. NS fluids changed to 1/2NS and correction slowed down significantly. sodium up to 130 this AM. CK downtrending. however, patient remains severely hypotensive requiring Levophed to maintain a map > 65 mmHg. This AM, serum K 1.6 (confirmed). started replacement with 200meq KCl and recheck K. 03/04: persists in vasoplegic distributive shock. afebrile. no evidence of infection. wbc downtrending. persists with severe life-threatening electrolyte derangements. passed swallow eval for nectar thick liquids. sodium stable at 131. ck downtrending. 03/05: persists in distributive shock. echo yesterday with EF 30%, globally decreased function. milrinone added yesterday with improvement in vasopressor requirement. still with multiple electrolyte abnormalities despite very aggressive replacement. very poor appetite. sodium stable at 131, which appears to be around baseline for him, looking back at prior records. also became agitated and delirious yesterday, likely secondary to etoh withdraw. started on Ativan and Librium. 03/06: electrolyte derangements persist. placed on continuous NaPhos infusion x 24h due to severe life-threatening hypophosphatemia. serial K, phos checks. weaning off levophed, milrinone persists. still poor appetite. sodium jumped from 132 to 139, but no significant mental status change, and we did not increase sodium load. 03/07: still requiring high electrolyte replacement. milrinone weaned to 0.375 mcg /kg/min overnight. still doing well with that. delirium persists. 03/08 Remains on milrinone. Electrolyte improving. Remains very lethargic, intermittently follows commands 03/09: Continues to be lethargic but wakes up follows some commands. Remains on milrinone will DC today. T max 100.1, urine output adequate sodium is 143 03/10: More awake alert, ate 50% of break fast. Will DC Dobhoff. Discontinue arterial and central lines. Delirium also improved, remains weak 03/11: doing much better this morning. no complaints. still with poor appetite. electrolytes improved. 03/20: We consulted for respiratory failure. Patient was last seen in room 1415 CMP receiving oral cares and became acutely hypoxic saturations 82% with coarse breath sounds. Halicat called. Patient was placed on a Venturi mask 50 % with desaturations to the mid 90s. He received Solu-Medrol 20 mg IV 1, Lasix 40 mg IV 1 and was transferred IM [facility] 521. Hemodynamically stable. Poor mentation 03/25: Reconsulted due to respiratory failure. Patient with gurgling/ transmitted upper airway sounds. Respiration the 50s. Decision made to orotracheally intubate. Noted to have been febrile with increased O2 course over the past 48 hours. 03/26: Afebrile. Requiring Nimbex drip for ventilator synchrony. Decreased urine output noted. Hemoglobin decreased likely dilutional. Tolerating tube feeding. Electrolytes been replaced. 03/27: Tmax 100.9. Currently 97.2. +6 L past 24 hours. Hemoglobin 8 transfuse overnight. Potassium 3. We'll discontinue Nimbex drip for vent synchrony today. 03/28: Afebrile. Negative fluid balance past 24 hours. Hemoglobin currently 9. Potassium 3.0. Currently on sedation vacation positive gag and otherwise unresponsive. 03/29: Tmax 103. Currently afebrile. Not tolerating tube feeds. Remains on Kiran-Synephrine. Did not tolerate sedation vacation back on Versed at 5 mg an hour fentanyl drip at 100 mcg an hour. One bowel movement. 03/30 Tube feeds remain on hold. On neosynephrine 40 mcg/min, RN states she has been weaning. Having BMs. On Versed 8 mg/hr and fentanyl 100 mcg/hr. 03/31 Off versed. Remains on fentanyl 100 mcg/hr. Having hiccups. Still on neosynephrine 40 mcg/min. Tolerating trickle feeds. Had 2 bowel movements 04/01: no meaningful change. still requires fentanyl for sedation. still on low- dose vasopressors. 04/02: no changes. still on levo @ 7 mcg/min. unable to wean off fentanyl due to tachycardia and tachypnea. 04/03: Off all sedation. On low-dose norepinephrine. Essentially unresponsive on the ventilator. Plan for likely withdrawal of care tomorrow 04/04: Off all sedation. Off all vasopressors. According to overnight RN was following commands. Will open eyes but not following commands this AM. 04/05 No events overnight. Afebrile On no sedation. 04/06: Resting comfortably in bed. Eyes are open. Moving head back and forth continuously. Weakly following commands with his upper and lower extremities. Subjective: 04/07: Low-grade temperatures overnight. 99.8. Eyes are open. Moving back and forth. Positive BM. Continues to be following commands. 04/08 Patient remains intubated on no sedation awake and follows commands. Tmax 100.8 04/09 Patient remains intubated, tolerated CPAP all day and had good responses in UO with Bumex yesterday. Afebrile. Objective Vital Signs Date Time Temp Pulse Resp B/P Pulse Ox O2 Delivery O2 Flow Rate FiO2 04/09/17 07:48 96 35 04/09/17 06:00 112 04/09/17 04:00 98.6 20 124/72 Intake and Output 04/08/17 04/08/17 04/09/17 08:00 16:00 00:00 Intake Total 676 ml 782 ml Output Total 425 ml 1150 ml 500 ml Balance 251 ml -368 ml -500 ml Result Diagram: 04/09/17 0510 04/09/17 0510 Other Results Laboratory Tests Test 04/08/17 04/09/17 12:00 05:10 Urine Color LIGHT-YELLOW Urine Turbidity CLEAR Urine pH 5.0 Urine Specific [place] 1.008 Urine Protein NEG mg/dL Urine Glucose (UA) NEG mg/dL Urine Ketones NEG mg/dL Urine Occult Blood NEG Urine Nitrite NEG Urine Bilirubin NEG Urine Urobilinogen LESS THAN 2.0 MG/DL Urine Leukocyte Esterase TRACE Urine RBC 6 /hpf Urine WBC 3 /hpf Urine Hyaline Casts 1 /lpf Urine Yeast with Hyphae FEW Urine Yeast (Budding) MOD Microscopic Urinalysis Comment CATH-CULT NOT IND White Blood Count 15.5 TH/MM3 Red Blood Count 2.88 MIL/MM3 Hemoglobin 9.5 GM/DL Hematocrit 28.9 % Mean Corpuscular Volume 100.1 FL Mean Corpuscular Hemoglobin 32.8 PG Mean Corpuscular Hemoglobin 32.8 % Concent Red Cell Distribution Width 16.1 % Platelet Count 299 TH/MM3 Mean Platelet Volume 7.5 FL Neutrophils (%) (Auto) 85.6 % Lymphocytes (%) (Auto) 8.9 % Monocytes (%) (Auto) 5.1 % Eosinophils (%) (Auto) 0.1 % Basophils (%) (Auto) 0.3 % Neutrophils # (Auto) 13.3 TH/MM3 Lymphocytes # (Auto) 1.4 TH/MM3 Monocytes # (Auto) 0.8 TH/MM3 Eosinophils # (Auto) 0.0 TH/MM3 Basophils # (Auto) 0.0 TH/MM3 CBC Comment DIFF FINAL Differential Comment Sodium Level 145 MEQ/L Potassium Level 3.2 MEQ/L Chloride Level 109 MEQ/L Carbon Dioxide Level 25.2 MEQ/L Anion Gap 11 MEQ/L Blood Urea Nitrogen 22 MG/DL Creatinine 0.65 MG/DL Estimat Glomerular Filtration 126 ML/MIN Rate Random Glucose 136 MG/DL Calcium Level 8.1 MG/DL Phosphorus Level 2.6 MG/DL Magnesium Level 1.9 MG/DL Total Bilirubin 2.0 MG/DL Aspartate Amino Transf 158 U/L (AST/SGOT) Alanine Aminotransferase 129 U/L (ALT/SGPT) Alkaline Phosphatase 462 U/L Total Protein 5.8 GM/DL Albumin 1.7 GM/DL Imaging Last Impressions Chest X-Ray 04/08/17 0600 Signed Impressions: Service Date/Time: Saturday, April 08, 2017 05:10 - CONCLUSION: 1. Endotracheal tube and weighted feeding tube. 2. Bilateral pulmonary infiltrates. Some improvement from the prior study. Cheo Barrera Jr., MD Abdomen X-Ray 04/08/17 0000 Signed Impressions: Service Date/Time: Saturday, April 08, 2017 23:55 - CONCLUSION: Dobbhoff tube coiled in the stomach. Cheo Barrera Jr., MD Head Magnetic Resonance Angiography 03/28/17 0000 Signed Impressions: Service Date/Time: March 17:22 - CONCLUSION: Unremarkable examination. Bety Castillo MD Brain MRI 03/28/17 0000 Signed Impressions: Service Date/Time: March 17:22 - CONCLUSION: 1. 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 Small subacute ischemic bilateral thalamic infarcts. 2. There has been no significant change when compared to the prior exam. Yinka Harman MD Lower Extremity Ultrasound 03/25/17 0000 Signed Impressions: Service Date/Time: Saturday, March 25, 2017 22:17 - CONCLUSION: No evidence of DVT. Víctor Rosas MD CT Angiography 03/21/17 0000 Signed Impressions: Service Date/Time: March 00:33 - CONCLUSION: No evidence of pulmonary embolism is identified. Mild atelectasis left lung base. Fluid or phlegm within the trachea. Milo Muhammad MD Abdomen Ultrasound 03/20/17 0000 Signed Impressions: Service Date/Time: Monday, March 20, 2017 11:38 - CONCLUSION: 1. Hepatosplenomegaly without focal lesion. 2. Probable sludge within the lumen of the gallbladder. No intrahepatic duct. Cheo Martínez MD Shoulder X-Ray 03/02/17 1404 Signed Impressions: Service Date/Time: Thursday, March 02, 2017 15:18 - CONCLUSION: No evidence of recent bony injury. Deformity of the lateral left clavicle suggests old healed trauma. Cheo Martínez MD Maxillofacial CT 03/02/17 1342 Signed Impressions: Service Date/Time: Thursday, March 02, 2017 14:52 - CONCLUSION: Negative CT of the facial bones. Cheo Martínez MD Head CT 03/02/17 1342 Signed Impressions: Service Date/Time: Thursday, March 02, 2017 14:52 - CONCLUSION: 1. Prominent scalp swelling left frontal and parietal region. No skull fracture seen. 2. Intracranial contents are intact without acute finding. Cheo Martínez MD Chest CT 03/02/17 1342 Signed Impressions: Service Date/Time: Thursday, March 02, 2017 15:04 - CONCLUSION: 1. Abnormal appearance of the lateral left clavicle suggesting a combination of acute and chronic bony injury. Fracture lucencies without bridging callus is seen the region of the coracoid process. 2. The lungs are clear. No evidence of pneumothorax. 3. Moderate size hiatus hernia. Cheo Martínez MD Cervical Spine CT 03/02/17 1342 Signed Impressions: Service Date/Time: Thursday, March 02, 2017 14:52 - CONCLUSION: Negative CT cervical spine. Cheo Martínez MD Abdomen/Pelvis CT 03/02/17 1342 Signed Impressions: Service Date/Time: Thursday, March 02, 2017 15:04 - CONCLUSION: Moderate size hiatus hernia. Scattered small sigmoid diverticula. Otherwise negative exam. Cheo Martínez MD Objective Remarks GENERAL: 61-year-old chronically ill appearing male, currently critically ill, orotracheally intubated. HEENT: Healing abrasion left side scalp. TIMOTHY. Scleral icterus. Very poor dentition. NECK: Trachea Midline RESP: Coarse breath sounds bilaterally. Few wheezes. CARDIOVASCULAR: Tachycardia, RR. ABDOMEN: Slightly distended but soft, bowel sounds present, tolerating tube feeds. : Johns in place with conrad urine output. mild/moderate scrotal edema. MUSCULOSKELETAL: No obvious deformity. 1+ edema all extremities NEUROLOGICAL: + gag and cough. Opens eyes and weakly following commands with upper and lower extremities. Date of Insertion: Mar 25, 2017 A/P Assessment and Plan Neuro/Psych: Osmotic demyelination syndrome Acute toxic metabolic encephalopathy secondary to hypercarbic respiratory failure Alcohol dependence History of EtOH induced seizure withdrawal Chronic benzodiazepine use Bilateral thalamic CVA Off all sedation oxycodone 5 mg every 4 hours as needed for pain Zyprexa wean to 5 mg po twice a day MRI 03/21 - T1/T2 prolonged with sparing of this central appears final fibers. 2 small spots in the posterior central spinal tract consistent with Osmotic demyelination syndrome. ODS most likely from correction of Na, with underlying alcoholism. MRI brain 03/28 revealed subacute bilateral thalamic lacunar infarcts, CPM. CT head 03/05 revealed no acute intracranial findings Continue thiamine Seen by neurology/Dr. Mazariegos. Respiratory: Acute hypoxemic hypercapnic respiratory failure PRVC 18/550/1.2/ Ventilator bundle Bronchodilator therapy every 4 hours and as needed Duoneb q 6hours SBT daily as pablo. Cardiovascular: Chronic Systolic heart failure Echocardiogram 03/04 revealed EF 35-40%. Mild mR. Left atrium dilated. JANE 33 mmHg TSH within normal limits 0.8 Wean off hydrocortisone currently 50 every 12 Continue midodrine 10 mg 3 times Monitor HR and BP keep MAP>65mmHg Renal: Acute Kidney Injury- Rhabdomyolysis- resolved ODS-see neuro Monitor renal function, I/O's, electrolytes replacement per protocol. Diurese with Bumex 1mg x1, Will need K replacement today. GI: EtOH cirrhosis Hyperammonemia Hiatal hernia Sigmoid diverticulosis History of umbilical hernia repair Resume tub feeds Jevity 1.5 with goal rate 60ml/hr On Xifaxan 550 twice a day/lactulose 30 twice a day. Recheck ammonia in a.m. LFT is elevated. Ultrasound liver-hepatosplenomegaly. Sludge in gallbladder On IV Protonix Reglan 10 every 8 hours/prokinetic agent. Heme: Leukocytosis Macrocytic anemia Monitor CBC B12 1452, Folate 15.2. TSH 0.8. ID: Likely aspiration pneumonia Escherichia coli UTI 03/11 - completed therapy Acinetobacter pneumonia Pertinent cultures 04/05 - urine -no growth 03/29 - blood cultures 2 - NGTD 03/25 - sputum --Acinetobacter. 03/25 - urine - NGTD 03/25 - blood cultures 2 -no growth 03/22 - urine - no growth 03/22 - blood cultures 2 - negative 03/20 - blood cultures 2 - no growth 03/11 - urine - Escherichia coli 03/02 - blood cultures 2 - no growth Pancultured 04/08 ( Blood cx x 2 sets, sputum, UA with cx if needed) Followed by Dr. Lisa/ID. Now on Unasyn per D since 03/28, Flagyl po 03/24 . sputum culture from 03/25 positive for Acinetobacter, sensitive to Unasyn. . Tobramycin aerosols added 04/02/17 through 04/09 Endocrine: Hyperglycemia of critical illness History of hypothyroidism SSI with Accu-Cheks every 4 hours to maintain euglycemia MSK: History of old left clavicle fracture PT/OT evaluate and treat Access Peripheral IV. Central line if indicated Prophylaxis: GI - Protonix DVT - SCD/heparin subcutaneous Palliative care is following code status changed to full code per daughter's request. Tamanna Sandhu, daughter/ HCP: from [facility] [phone] now confirmed transferred to [facility] in [place] facility ) Code status - DNR. Level 3 Meir Garcia MD April 09, 2017 10:28
[2017-04-09] MEDS ORDERED: BUMETANIDE INJ 1 MG/4 ML VIAL IV PUSH ONE (10:30)
[2017-04-09] MEDS: NYSTATIN 100,000 U/GM PWD 15 GM BTL TOPICAL SCH ×2 (12:56→21:00)
--- NOTE | 2017-04-09 13:35 | HHI.IDPN ---
Subjective Subjective Remarks Notes reviewed D/W RN On the vent, tolerating CPAP Off pressors Low grade temps Repeat UA normal repeat sputum with normal derrick Antibiotics Unasyn Flagyl Tobra nebs Lines [facility] Past Medical History ETOHism Allergies: Coded Allergies: PEANUTS (Unverified Allergy, Severe, 03/02/17) *MDRO Multi-Drug Resistant Organism (Verified Adverse Reaction, Unknown, ) MRSA PCR screen POSITIVE - 03/02/17 MDR Acinetobacter (sputum) - 03/25/17 Objective . Vital Signs Date Time Temp Pulse Resp B/P Pulse Ox O2 Delivery O2 Flow Rate FiO2 04/09/17 11:23 96 35 04/09/17 10:00 102 04/09/17 08:00 98.9 101 23 114/72 96 04/09/17 08:00 35 04/09/17 07:48 96 35 04/09/17 07:48 35 04/09/17 06:00 112 04/09/17 04:27 92 35 04/09/17 04:00 98.6 106 20 124/72 92 04/09/17 04:00 109 04/09/17 04:00 35 04/09/17 02:01 95 35 04/09/17 02:00 115 04/09/17 00:00 98.4 103 31 116/75 94 04/09/17 00:00 35 04/09/17 00:00 109 04/08/17 22:33 95 35 04/08/17 22:00 104 04/08/17 20:00 98.4 103 31 116/75 94 04/08/17 20:00 35 04/08/17 20:00 103 04/08/17 18:00 104 04/08/17 16:57 95 35 04/08/17 16:00 101 04/08/17 16:00 98.7 101 38 110/72 95 04/08/17 16:00 35 04/08/17 14:00 101 04/08/17 04/08/17 04/09/17 14:59 22:59 06:59 Intake Total 782 ml 600 ml Output Total 1150 ml 500 ml 240 ml Balance -368 ml -500 ml 360 ml IV Total 286 ml 200 ml Tube Feeding 496 ml 300 ml Other 100 ml Output Urine Total 1150 ml 500 ml 240 ml Stool Total 0 ml # Bowel Movements 2 0 . Laboratory Tests Test 04/08/17 04/09/17 04:52 05:10 White Blood Count 12.9 TH/MM3 15.5 TH/MM3 Red Blood Count 2.71 MIL/MM3 2.88 MIL/MM3 Hemoglobin 8.9 GM/DL 9.5 GM/DL Hematocrit 27.2 % 28.9 % Mean Corpuscular Volume 100.3 FL 100.1 FL Mean Corpuscular Hemoglobin 32.8 PG 32.8 PG Mean Corpuscular Hemoglobin 32.7 % 32.8 % Concent Red Cell Distribution Width 15.9 % 16.1 % Platelet Count 308 TH/MM3 299 TH/MM3 Mean Platelet Volume 7.5 FL 7.5 FL Neutrophils (%) (Auto) 88.6 % 85.6 % Lymphocytes (%) (Auto) 6.4 % 8.9 % Monocytes (%) (Auto) 4.9 % 5.1 % Eosinophils (%) (Auto) 0.1 % 0.1 % Basophils (%) (Auto) 0.0 % 0.3 % Neutrophils # (Auto) 11.4 TH/MM3 13.3 TH/MM3 Lymphocytes # (Auto) 0.8 TH/MM3 1.4 TH/MM3 Monocytes # (Auto) 0.6 TH/MM3 0.8 TH/MM3 Eosinophils # (Auto) 0.0 TH/MM3 0.0 TH/MM3 Basophils # (Auto) 0.0 TH/MM3 0.0 TH/MM3 CBC Comment DIFF FINAL DIFF FINAL Differential Comment Laboratory Tests Test 04/07/17 04/07/17 04/08/17 04/09/17 18:20 23:14 10:12 05:10 Potassium Level 4.2 MEQ/L 4.0 MEQ/L 3.2 MEQ/L Sodium Level 143 MEQ/L 145 MEQ/L Chloride Level 109 MEQ/L 109 MEQ/L Carbon Dioxide Level 24.1 MEQ/L 25.2 MEQ/L Anion Gap 10 MEQ/L 11 MEQ/L Blood Urea Nitrogen 23 MG/DL 22 MG/DL Creatinine 0.74 MG/DL 0.65 MG/DL Estimat Glomerular Filtration 108 ML/MIN 126 ML/MIN Rate Random Glucose 150 MG/DL 136 MG/DL Calcium Level 7.5 MG/DL 8.1 MG/DL Phosphorus Level 2.2 MG/DL 2.8 MG/DL 2.6 MG/DL Magnesium Level 2.0 MG/DL 1.9 MG/DL 1.9 MG/DL Total Bilirubin 2.0 MG/DL 2.0 MG/DL Aspartate Amino Transf 206 U/L 158 U/L (AST/SGOT) Alanine Aminotransferase 138 U/L 129 U/L (ALT/SGPT) Alkaline Phosphatase 487 U/L 462 U/L Total Protein 5.7 GM/DL 5.8 GM/DL Albumin 1.6 GM/DL 1.7 GM/DL Microbiology Date/Time Procedure Status Source Growth 04/08/17 10:07 Aerobic Blood Culture - Preliminary Resulted Blood Peripheral NO GROWTH IN 1 DAY 04/08/17 10:07 Anaerobic Blood Culture - Preliminary Resulted Blood Peripheral NO GROWTH IN 1 DAY 04/08/17 10:12 Aerobic Blood Culture - Preliminary Resulted Blood Peripheral NO GROWTH IN 1 DAY 04/08/17 10:12 Anaerobic Blood Culture - Preliminary Resulted Blood Peripheral NO GROWTH IN 1 DAY 04/08/17 15:00 Gram Stain - Final Resulted Sputum Endotracheal 04/08/17 15:00 Sputum Culture - Preliminary Resulted Sputum Endotracheal MODERATE GROWTH NORMAL RESPIRATORY FL... Imaging Chest X-Ray 04/08/17599 Signed Impressions: Service Date/Time: Saturday, April 08, 2017 05:10 - CONCLUSION: 1. Endotracheal tube and weighted feeding tube. 2. Bilateral pulmonary infiltrates. Some improvement from the prior study. Cheo Barrera Jr., MD Chest X-Ray 03/27/17 06 Signed Impressions: Service Date/Time: Monday, March 27, 2017 02:33 - CONCLUSION: No significant interval change. Víctor Rosas MD Chest X-Ray 03/26/17 0600 Signed Impressions: Service Date/Time: Sunday, March 26, 2017 05:35 - CONCLUSION: Improving bilateral pulmonary infiltrates Víctor Rosas MD Chest X-Ray 03/25/17 1004 Signed Impressions: Service Date/Time: Saturday, March 25, 2017 10:03 - CONCLUSION: 1. Worsening bibasilar consolidation. 2. Endotracheal tube with tip at the thoracic inlet and should be advanced at least 3-4 cm. 3. Adequate placement of left jugular central line without pneumothorax. Logan Morgan MD Chest X-Ray 03/26/17 0600 Signed Impressions: Service Date/Time: Sunday, March 26, 2017 05:35 - CONCLUSION: Improving bilateral pulmonary infiltrates Víctor Rosas MD Lower Extremity Ultrasound 03/25/17 0000 Signed Impressions: Service Date/Time: Saturday, March 25, 2017 22:17 - CONCLUSION: No evidence of DVT. Víctor Rosas MD CT Angiography 03/21/17 0000 Signed Impressions: Service Date/Time: March 00:33 - CONCLUSION: No evidence of pulmonary embolism is identified. Mild atelectasis left lung base. Fluid or phlegm within the trachea. Milo Muhammad MD Brain MRI 03/20/17 0000 Signed Impressions: Service Date/Time: Monday, March 20, 2017 16:11 - CONCLUSION: Abnormal appearance to the ruthy with some extension into the cortical spinal tracts of the posterior thalamus was bilaterally. 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 Cheo Martínez MD Abdomen X-Ray 03/20/17 0000 Signed Impressions: Service Date/Time: Monday, March 20, 2017 18:12 - CONCLUSION: Tip of the Dobbhoff tube projecting towards the pylorus. Cheo Barrera Jr., MD Abdomen Ultrasound 03/20/17 0000 Signed Impressions: Service Date/Time: Monday, March 20, 2017 11:38 - CONCLUSION: 1. Hepatosplenomegaly without focal lesion. 2. Probable sludge within the lumen of the gallbladder. No intrahepatic duct. Cheo Martínez MD Shoulder X-Ray 03/02/17 1404 Signed Impressions: Service Date/Time: Thursday, March 02, 2017 15:18 - CONCLUSION: No evidence of recent bony injury. Deformity of the lateral left clavicle suggests old healed trauma. Cheo Martínez MD Maxillofacial CT 03/02/17 1342 Signed Impressions: Service Date/Time: Thursday, March 02, 2017 14:52 - CONCLUSION: Negative CT of the facial bones. Cheo Martínez MD Head CT 03/02/17 1342 Signed Impressions: Service Date/Time: Thursday, March 02, 2017 14:52 - CONCLUSION: 1. Prominent scalp swelling left frontal and parietal region. No skull fracture seen. 2. Intracranial contents are intact without acute finding. Cheo Martínez MD Chest CT 03/02/17 1342 Signed Impressions: Service Date/Time: Thursday, March 02, 2017 15:04 - CONCLUSION: 1. Abnormal appearance of the lateral left clavicle suggesting a combination of acute and chronic bony injury. Fracture lucencies without bridging callus is seen the region of the coracoid process. 2. The lungs are clear. No evidence of pneumothorax. 3. Moderate size hiatus hernia. Cheo Martínez MD Cervical Spine CT 03/02/17 1342 Signed Impressions: Service Date/Time: Thursday, March 02, 2017 14:52 - CONCLUSION: Negative CT cervical spine. Cheo Martínez MD Abdomen/Pelvis CT 03/02/17 1342 Signed Impressions: Service Date/Time: Thursday, March 02, 2017 15:04 - CONCLUSION: Moderate size hiatus hernia. Scattered small sigmoid diverticula. Otherwise negative exam. Cheo Martínez MD Chest X-Ray 03/25/17 1004 Signed Impressions: Service Date/Time: Saturday, March 25, 2017 10:03 - CONCLUSION: 1. Worsening bibasilar consolidation. 2. Endotracheal tube with tip at the thoracic inlet and should be advanced at least 3-4 cm. 3. Adequate placement of left jugular central line without pneumothorax. Logan Morgan MD Chest X-Ray 03/23/17 0000 Signed Impressions: Service Date/Time: Thursday, March 23, 2017 14:27 - CONCLUSION: 1. Feeding tube in place with what appears to be a loop in the hypopharynx. 2. Bibasilar areas of consolidation or atelectasis. Casper Vargas MD Physical Exam GENERAL: Awake on CPAP, focusing, NAD SKIN: Warm and dry. No generalized rash. HEENT: Pupils equal round and reactive. Orally intubated. Poor dentition. A lot of oral secretions NECK: Supple, nontender, no meningeal signs. CARDIOVASCULAR: Regular rate and rhythm without murmurs, gallops, or rubs. Tachycardic. RESPIRATORY: Has few scattered rhonchi, decreased BS at bases GASTROINTESTINAL: Abdomen mildly distended, bowel sounds are present and normoactive, no reaction to palpation MUSCULOSKELETAL: Lower extremities without clubbing, cyanosis. Developing some pedal edema. No joint effusion. NEUROLOGICAL: Sedated. PSYCH: Unable to assess : Johns cath in place, urine looks better LINE: central line site ok Assessment & Plan Remarks IMPRESSION Sepsis syndrome, due to PNA - on vent - has MDR Acinetobacter MDR Acinetobacter PNA Septic shock, BP better Known ETOH abuse Encephalopathy - sepsis, ETOH, CPM Respiratory failure Diarrhea, C diff negative Nuvia in UC, repeat UA normal, without Rx RECOMMENDATION Continue Unasyn for MDR Acinetobacter Continue Tobra nebs Continue Flagyl for now Possible extubation today since he has been tolerating CPAP D/W Umm Lui MD April 09, 2017 13:35
--- NOTE | 2017-04-09 14:33 | HHI.HCPN ---
Reason for visit a. To assist with evaluation and management of symptoms including: dyspnea, pain. b. To assist medical decision maker(s) with: better understanding of current medical conditions; weighing benefits/burdens of medical treatment options; making medical treatment decisions. . (Melissa Mcclure) Subjective/Interval History Palliative care follow-up for further clarifications of goals of care and to assist with communication. Patient seen in ICU, he remains intubated on mechanical ventilation. Ongoing CPAP trials. Able to tolerate CPAP trials yesterday, has been off sedation and is awake and following intermittently some commands such as "squeeze my hand". Patient afebrile, tachycardic at the time of my visit with heart rate in the low 120s. Stable hemodynamically. Ongoing tube feedings, appears to be tolerating well. Chest x-ray yesterday showing bilateral pulmonary infiltrates with some improvement from prior study. Laboratory today showing WBC 15.5, Hgb 9.5, platelet count 229. Sodium 145, potassium 3.2, BUN/creatinine 22/0.65. AST 158, ALT 129, alkaline phosphatase 462. Albumin 1.7. ID following, repeat UA normal, repeat sputum with normal derrick. Discussed case with Dr. Garcia, patient likely to medically extubate today or tomorrow. Good response from [facility], 1890 mL output today those far. Case discussed with Dr. Garcia and bedside RN Tori. No family at bedside. No family at bedside. Telephone call to patient's daughter Amie who is currently under the custody of [facility]. Awaiting return call for medical update. Received return call from patient's daughter Amie. Medical update provided. Reviewed ongoing attempts at medical extubation. Daughter reports feeling hopeful of patient's improvement. Reviewed with daughter that even if patient is able to medically extubate, he still at high risk for reintubation, further complications, continue decline and . Daughter reports that she would like to change patient's CODE STATUS at this time from no code to FULL code. Reviewed benefits, risks and limitations of CPR, reintubation and mechanical ventilation given patient's clinical condition and multiple comorbidities. Daughter verbalized understanding but again wishing to change CODE STATUS to full code at this time. . Family/friend interactions See interval note. . (Melissa Mcclure) Advance Directives Living Will: Never completed Health Care Surrogate: Never completed Durable Power of Manager Ems: Never completed (Melissa Mcclure) Advance Directive Specifics Health Care Surrogate(s): Margot Nolen is, per [place] statues bam care decision proxy. . Now in [facility] (#[phone]). Facilitation of conversations with Tamanna can be arranged through booking (#[phone]) in emergency situations to address goals of care.Ask for a [place] on staff as shifts rotate throughout the week. Significant change in goals: Daughter electing to change CODE STATUS from no code to full code at this time. Ongoing attempts at medical extubation. (Melissa Mcclure) Objective Vital Signs Date Time Temp Pulse Resp B/P Pulse Ox O2 Delivery O2 Flow Rate FiO2 04/09/17 11:23 96 35 04/09/17 10:00 102 04/09/17 08:00 98.9 101 23 114/72 96 04/09/17 08:00 35 04/09/17 07:48 96 35 04/09/17 07:48 35 04/09/17 06:00 112 04/09/17 04:27 92 35 04/09/17 04:00 98.6 106 20 124/72 92 04/09/17 04:00 109 04/09/17 04:00 35 04/09/17 02:01 95 35 04/09/17 02:00 115 04/09/17 00:00 98.4 103 31 116/75 94 04/09/17 00:00 35 04/09/17 00:00 109 04/08/17 22:33 95 35 04/08/17 22:00 104 04/08/17 20:00 98.4 103 31 116/75 94 04/08/17 20:00 35 04/08/17 20:00 103 04/08/17 18:00 104 04/08/17 16:57 95 35 04/08/17 16:00 101 04/08/17 16:00 98.7 101 38 110/72 95 04/08/17 16:00 35 Intake & Output 04/09/17 04/09/17 07:00 19:00 Intake Total 600 ml Output Total 740 ml Balance -140 ml IV Total 200 ml Tube Feeding 300 ml Other 100 ml Output Urine Total 740 ml Stool Total 0 ml # Bowel Movements 0 Physical Exam CONSTITUTIONAL/GENERAL: This is an thin, pale appearing patient, in no apparent distress. TUBES/LINES/DRAINS: ETT, OG, Johns, rectal tube, SCDs. SKIN: Red rash on face. Ecchymosis bilateral UEs. Erythema/flushing to forehead and bilateral cheeks. Skin temperature appropriate. Not diaphoretic. CARDIOVASCULAR: Tachycardic and heart rate in the low 120s. No murmurs, gallops , or rubs. Peripheral pulses symmetric. RESPIRATORY/CHEST: Symmetric, unlabored respirations. Coarse rhonchi anteriorly. Remains intubated on mechanical ventilation, ongoing CPAP trials. GASTROINTESTINAL: Abdomen round, soft, non-tender. Positive bowel sounds. Ongoing tube feedings via NG tube. GENITOURINARY: Without palpable bladder distension. Johns catheter in place. Erythema groin area. MUSCULOSKELETAL: Generalized edema noted. No mottling or clubbing. Very weak hand grasp bilaterally. NEUROLOGICAL: Awake, alert. Eyes open, tracking. Following intermittently some commands such as "squeeze my hand". PSYCHIATRIC: Difficult to assess secondary to intubation/mechanical ventilation. Appears calm. . (Melissa Mcclure) Diagnostic Tests Laboratory Laboratory Tests Test 04/07/17 04/07/17 04/07/17 04/08/17 04:36 18:20 23:14 04:52 White Blood Count 12.1 TH/MM3 12.9 TH/MM3 (4.0-11.0) (4.0-11.0) Red Blood Count 2.73 MIL/MM3 2.71 MIL/MM3 (4.50-5.90) (4.50-5.90) Hemoglobin 9.3 GM/DL 8.9 GM/DL (13.0-17.0) (13.0-17.0) Hematocrit 27.4 % 27.2 % (39.0-51.0) (39.0-51.0) Mean Corpuscular Volume 100.1 FL 100.3 FL (80.0-100.0) (80.0-100.0) Mean Corpuscular Hemoglobin 33.9 PG 32.8 PG (27.0-34.0) (27.0-34.0) Mean Corpuscular Hemoglobin 33.9 % 32.7 % Concent (32.0-36.0) (32.0-36.0) Red Cell Distribution Width 16.1 % 15.9 % (11.6-17.2) (11.6-17.2) Platelet Count 341 TH/MM3 308 TH/MM3 (150-450) (150-450) Mean Platelet Volume 7.6 FL 7.5 FL (7.0-11.0) (7.0-11.0) Neutrophils (%) (Auto) 86.1 % 88.6 % (16.0-70.0) (16.0-70.0) Lymphocytes (%) (Auto) 7.8 % 6.4 % (9.0-44.0) (9.0-44.0) Monocytes (%) (Auto) 5.8 % (0.0-8.0) 4.9 % (0.0-8.0) Eosinophils (%) (Auto) 0.1 % (0.0-4.0) 0.1 % (0.0-4.0) Basophils (%) (Auto) 0.2 % (0.0-2.0) 0.0 % (0.0-2.0) Neutrophils # (Auto) 10.4 TH/MM3 11.4 TH/MM3 (1.8-7.7) (1.8-7.7) Lymphocytes # (Auto) 0.9 TH/MM3 0.8 TH/MM3 (1.0-4.8) (1.0-4.8) Monocytes # (Auto) 0.7 TH/MM3 0.6 TH/MM3 (0-0.9) (0-0.9) Eosinophils # (Auto) 0.0 TH/MM3 0.0 TH/MM3 (0-0.4) (0-0.4) Basophils # (Auto) 0.0 TH/MM3 0.0 TH/MM3 (0-0.2) (0-0.2) CBC Comment DIFF FINAL DIFF FINAL Differential Comment Sodium Level 143 MEQ/L 143 MEQ/L (136-145) (136-145) Potassium Level 2.9 MEQ/L 4.2 MEQ/L 4.0 MEQ/L (3.5-5.1) (3.5-5.1) (3.5-5.1) Chloride Level 109 MEQ/L 109 MEQ/L (98-107) (98-107) Carbon Dioxide Level 25.5 MEQ/L 24.1 MEQ/L (21.0-32.0) (21.0-32.0) Anion Gap 9 MEQ/L (5-15) 10 MEQ/L (5-15) Blood Urea Nitrogen 22 MG/DL (7-18) 23 MG/DL (7-18) Creatinine 0.69 MG/DL 0.74 MG/DL (0.60-1.30) (0.60-1.30) Estimat Glomerular Filtration 117 ML/MIN 108 ML/MIN Rate (>89) (>89) Random Glucose 154 MG/DL 150 MG/DL (74-106) (74-106) Calcium Level 7.7 MG/DL 7.5 MG/DL (8.5-10.1) (8.5-10.1) Phosphorus Level 2.2 MG/DL 2.2 MG/DL (2.5-4.9) (2.5-4.9) Magnesium Level 1.7 MG/DL 2.0 MG/DL (1.5-2.5) (1.5-2.5) Total Bilirubin 1.7 MG/DL 2.0 MG/DL (0.2-1.0) (0.2-1.0) Aspartate Amino Transf 194 U/L (15-37) 206 U/L (15-37) (AST/SGOT) Alanine Aminotransferase 119 U/L (12-78) 138 U/L (12-78) (ALT/SGPT) Alkaline Phosphatase 447 U/L 487 U/L (45-117) (45-117) Ammonia 27 MCMOL/L (11-32) Total Protein 5.8 GM/DL 5.7 GM/DL (6.4-8.2) (6.4-8.2) Albumin 1.6 GM/DL 1.6 GM/DL (3.4-5.0) (3.4-5.0) Test 04/08/17 04/08/17 04/09/17 10:12 12:00 05:10 Phosphorus Level 2.8 MG/DL 2.6 MG/DL (2.5-4.9) (2.5-4.9) Magnesium Level 1.9 MG/DL 1.9 MG/DL (1.5-2.5) (1.5-2.5) Urine Color LIGHT-YELLOW (YELLW/STRAW) Urine Turbidity CLEAR (CLEAR) Urine pH 5.0 (5.0-8.5) Urine Specific [place] 1.008 (1.002-1.035) Urine Protein NEG mg/dL (NEG-TRACE) Urine Glucose (UA) NEG mg/dL (NEG) Urine Ketones NEG mg/dL (NEG) Urine Occult Blood NEG (NEG) Urine Nitrite NEG (NEG) Urine Bilirubin NEG (NEG) Urine Urobilinogen LESS THAN 2.0 MG/DL (LESS THAN 2.0) Urine Leukocyte Esterase TRACE (NEG) Urine RBC 6 /hpf (0-3) Urine WBC 3 /hpf (0-5) Urine Hyaline Casts 1 /lpf (RARE) Urine Yeast with Hyphae FEW (NONE) Urine Yeast (Budding) MOD (NONE) Microscopic Urinalysis Comment CATH-CULT NOT IND White Blood Count 15.5 TH/MM3 (4.0-11.0) Red Blood Count 2.88 MIL/MM3 (4.50-5.90) Hemoglobin 9.5 GM/DL (13.0-17.0) Hematocrit 28.9 % (39.0-51.0) Mean Corpuscular Volume 100.1 FL (80.0-100.0) Mean Corpuscular Hemoglobin 32.8 PG (27.0-34.0) Mean Corpuscular Hemoglobin 32.8 % Concent (32.0-36.0) Red Cell Distribution Width 16.1 % (11.6-17.2) Platelet Count 299 TH/MM3 (150-450) Mean Platelet Volume 7.5 FL (7.0-11.0) Neutrophils (%) (Auto) 85.6 % (16.0-70.0) Lymphocytes (%) (Auto) 8.9 % (9.0-44.0) Monocytes (%) (Auto) 5.1 % (0.0-8.0) Eosinophils (%) (Auto) 0.1 % (0.0-4.0) Basophils (%) (Auto) 0.3 % (0.0-2.0) Neutrophils # (Auto) 13.3 TH/MM3 (1.8-7.7) Lymphocytes # (Auto) 1.4 TH/MM3 (1.0-4.8) Monocytes # (Auto) 0.8 TH/MM3 (0-0.9) Eosinophils # (Auto) 0.0 TH/MM3 (0-0.4) Basophils # (Auto) 0.0 TH/MM3 (0-0.2) CBC Comment DIFF FINAL Differential Comment Sodium Level 145 MEQ/L (136-145) Potassium Level 3.2 MEQ/L (3.5-5.1) Chloride Level 109 MEQ/L (98-107) Carbon Dioxide Level 25.2 MEQ/L (21.0-32.0) Anion Gap 11 MEQ/L (5-15) Blood Urea Nitrogen 22 MG/DL (7-18) Creatinine 0.65 MG/DL (0.60-1.30) Estimat Glomerular Filtration 126 ML/MIN Rate (>89) Random Glucose 136 MG/DL (74-106) Calcium Level 8.1 MG/DL (8.5-10.1) Total Bilirubin 2.0 MG/DL (0.2-1.0) Aspartate Amino Transf 158 U/L (15-37) (AST/SGOT) Alanine Aminotransferase 129 U/L (12-78) (ALT/SGPT) Alkaline Phosphatase 462 U/L (45-117) Total Protein 5.8 GM/DL (6.4-8.2) Albumin 1.7 GM/DL (3.4-5.0) (Melissa Mcclure) Result Diagram: 04/09/17 0510 04/09/17 0510 Microbiology Microbiology Date/Time Procedure Status Source Growth 04/08/17 10:07 Aerobic Blood Culture - Preliminary Resulted Blood Peripheral NO GROWTH IN 1 DAY 04/08/17 10:07 Anaerobic Blood Culture - Preliminary Resulted Blood Peripheral NO GROWTH IN 1 DAY 04/08/17 10:12 Aerobic Blood Culture - Preliminary Resulted Blood Peripheral NO GROWTH IN 1 DAY 04/08/17 10:12 Anaerobic Blood Culture - Preliminary Resulted Blood Peripheral NO GROWTH IN 1 DAY 04/08/17 15:00 Gram Stain - Final Resulted Sputum Endotracheal 04/08/17 15:00 Sputum Culture - Preliminary Resulted Sputum Endotracheal MODERATE GROWTH NORMAL RESPIRATORY FL... Imaging Last Impressions Chest X-Ray 04/08/17 0600 Signed Impressions: Service Date/Time: Saturday, April 08, 2017 05:10 - CONCLUSION: 1. Endotracheal tube and weighted feeding tube. 2. Bilateral pulmonary infiltrates. Some improvement from the prior study. Cheo Barrera Jr., MD Abdomen X-Ray 04/08/17 0000 Signed Impressions: Service Date/Time: Saturday, April 08, 2017 23:55 - CONCLUSION: Dobbhoff tube coiled in the stomach. hCeo Barrera Jr., MD Head Magnetic Resonance Angiography 03/28/17 0000 Signed Impressions: Service Date/Time: March 17:22 - CONCLUSION: Unremarkable examination. Bety Castillo MD Brain MRI 03/28/17 0000 Signed Impressions: Service Date/Time: March 17:22 - CONCLUSION: 1. 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 Small subacute ischemic bilateral thalamic infarcts. 2. There has been no significant change when compared to the prior exam. Yinka Harman MD Lower Extremity Ultrasound 03/25/17 0000 Signed Impressions: Service Date/Time: Saturday, March 25, 2017 22:17 - CONCLUSION: No evidence of DVT. Víctor Rosas MD CT Angiography 03/21/17 0000 Signed Impressions: Service Date/Time: March 00:33 - CONCLUSION: No evidence of pulmonary embolism is identified. Mild atelectasis left lung base. Fluid or phlegm within the trachea. Milo Muhammad MD Abdomen Ultrasound 03/20/17 0000 Signed Impressions: Service Date/Time: Monday, March 20, 2017 11:38 - CONCLUSION: 1. Hepatosplenomegaly without focal lesion. 2. Probable sludge within the lumen of the gallbladder. No intrahepatic duct. Cheo Martínez MD Shoulder X-Ray 03/02/17 1404 Signed Impressions: Service Date/Time: Thursday, March 02, 2017 15:18 - CONCLUSION: No evidence of recent bony injury. Deformity of the lateral left clavicle suggests old healed trauma. Cheo Martínez MD Maxillofacial CT 4/1/17 1342 Signed Impressions: Service Date/Time: Thursday, March 02, 2017 14:52 - CONCLUSION: Negative CT of the facial bones. Cheo Martínez MD Head CT 03/02/171341 Signed Impressions: Service Date/Time: Thursday, March 02, 2017 14:52 - CONCLUSION: 1. Prominent scalp swelling left frontal and parietal region. No skull fracture seen. 2. Intracranial contents are intact without acute finding. Cheo Martínez MD Chest CT 03/02/171341 Signed Impressions: Service Date/Time: Thursday, March 02, 2017 15:04 - CONCLUSION: 1. Abnormal appearance of the lateral left clavicle suggesting a combination of acute and chronic bony injury. Fracture lucencies without bridging callus is seen the region of the coracoid process. 2. The lungs are clear. No evidence of pneumothorax. 3. Moderate size hiatus hernia. Cheo Martínez MD Cervical Spine CT 03/02/171341 Signed Impressions: Service Date/Time: Thursday, March 02, 2017 14:52 - CONCLUSION: Negative CT cervical spine. Cheo Martínez MD Abdomen/Pelvis CT 03/02/171341 Signed Impressions: Service Date/Time: Thursday, March 02, 2017 15:04 - CONCLUSION: Moderate size hiatus hernia. Scattered small sigmoid diverticula. Otherwise negative exam. Cheo Martínez MD (Melissa Mcclure [facility]) Assessment and Plan Disease Oriented Problem List: (1) Sepsis due to Acinetobacter Comment: Sepsis syndrome secondary to pneumonia -MDR Acinetobacter (2) Acute hypoxemic respiratory failure Comment: Remains intubated on mechanical ventilation. 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 (2) Dyspnea 0-10 Scale: Unable to quantify (remains with an nasal canula. However, he is highly prone to further aspiration and increasing shortness of breath) Comment: Secondary to respiratory failure, pneumonia. Remains intubated on mechanical ventilation. (3) Debility 0-10 Scale: Unable to quantify Comment: Secondary to acute illness and prolonged hospitalization. 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 Spiritual: No reported Legal: Margot Nolen is, per [place] [facility] bam care decision proxy. She is currently incarcerated at the [facility]. They are permitting her to participate in decisions at this time. At some future point she will be moved to the [facility]. Ethical issues impacting care: Important Contacts * Tamanna Sandhu, daughter/ HCP: Margot Nolen is, per [place] [facility] bam care decision proxy. . Now in [facility] (#[phone]). Facilitation of conversations with Tamanna can be arranged through booking (#[phone]) in emergency situations to address goals of care.Ask for a [place] on staff as shifts rotate throughout the week. * Guillermo Roberts, daughter friend: [phone] (cell)- has frequent contact w Amie - has been very helpful Prognosis Prognosis: Poor prognosis for meaningful recovery. . Code Status: Full Code Plan * CODE STATUS: Daughter today electing to change patient's CODE STATUS from DNR /DNI to full code. Reviewed benefits, risks and limitations of CPR, reintubation and mechanical ventilation given patient's clinical condition and multiple comorbidities. Daughter verbalized understanding but again wishing to change CODE STATUS to full code at this time. * HEALTHCARE DECISION-MAKING: Patient incapacitated secondary to clinical condition, will likely not regain capacity. . According to [place] statutes, health care proxy decision making falls to his only daughter, Tamanna. Now in [facility] (#[phone]). Facilitation of conversations with Tamanna can be arranged through booking (#[phone]) in emergency situations to address goals of care. Ask for a [place] on staff as shifts rotate throughout the week. * GOALS OF CARE: Current attempts at medical extubation. Spoke to patient's daughter Amie. Medical update provided. Reviewed ongoing attempts at medical extubation. Daughter reports feeling hopeful of patient's improvement. Reviewed with daughter that patient remains critically ill and that even if patient is able to medically extubate, he still at high risk for reintubation, further complications, continue decline and . Daughter reports that she would like to change patient's CODE STATUS at this time from no code to FULL code. Reviewed benefits, risks and limitations of CPR, reintubation and mechanical ventilation given patient's clinical condition and multiple comorbidities. Daughter verbalized understanding but again wishing to change CODE STATUS to full code at this time. * SYMPTOMS: == Dyspnea, secondary to respiratory failure. Remains intubated on mechanical ventilation. Currently tolerating CPAP trials. Ongoing attempts at medical extubation. == Debility. Secondary to burden of disease, acute illness and prolonged hospitalization. == Pain, secondary to prolonged hospitalization and bedrest. Oxycodone available as needed. * Case has been discussed with Dr. Garcia and bedside RN. * Palliative care contact information has been provided to patient's daughter during prior telephone conversation. * Palliative care will continue to follow further clarifications of goals of care as patient's clinical course evolves. . (Melissa Mcclure) Time Spent Total Floor Time (mins): 38 (Total time to include review of medical records, physical exam, telephone call to patient's daughter, and case discussion with Dr. Garcia and bedside RN.) >50% Counseling/Coord of Care: Yes (Melissa Mcclure) Attestation To help prompt me to consider important information that might be impacting today's encounter and assessment, information from prior notes written by myself or my colleagues may have been "brought forward" into today's note. My signature on this note, however, is an attestation that I personally performed the exam, history, and/or decision-making noted today, and, unless otherwise indicated, the interactions with patient, family, and staff as well as the review of records all occurred today. I also attest that the listed assessment and stated plan reflect my best clinical judgment today based on the combination of historical information, prior notes, and today's exam/ interactions. When time spent is documented, it refers only to time spent today by the signer, or if indicated, combined time spent today by collaborating physician/nurse practitioner. (Melissa Mcclure) Collaborating MD Comments . Chart reviewed. Cased discussed with palliative care RISK MANAGEMENT DIRECTOR. Above RISK MANAGEMENT DIRECTOR note reviewed and I concur. . (Greg Salas MD) Melissa Mcclure April 09, 2017 14:33 Greg Salas MD April 29, 2017 16:05
[2017-04-10] VITALS (22 sets, daily range): BP systolic 96–121; BP diastolic 56–76; PULSE 91–117; RESP 19–33; TEMP 98.6–101.1; O2SAT 92–97
[2017-04-10] MEDS: RESP: ALBUTEROL 2.5 MG/IPRATROPIUM 0.5 MG NEB (SCH) NEB ×5 (02:45→20:37)
[2017-04-10] MEDS: INSULIN NovoLIN REGULAR SUPPLEMENTAL SCALE SQ SCH ×5 (04:00→20:00)
[2017-04-10] MEDS: MIDODRINE 5 MG TAB PO SCH ×3 (04:29→22:53)
[2017-04-10] MEDS: METOCLOPRAMIDE HCL 10 MG/2 ML VIAL IV PUSH SCH ×3 (04:29→22:53)
[2017-04-10] MEDS: AMPICILLIN-SULBACTAM INJ 3 GM in SODIUM CHLORIDE 0.9% INJ 100 ML IV SCH ×4 (04:29→22:55)
[2017-04-10] MEDS: metroNIDAZOLE 500 MG TAB PO SCH (04:29)
[2017-04-10] MEDS: OLANZapine ODT 5 MG TAB PO SCH (04:30)
[2017-04-10] MEDS: HEPARIN SODIUM - SQ 10,000 UNITS/ML VIAL SQ SCH ×3 (04:30→22:54)
[2017-04-10 05:57] LABS: AUTOMATED NEUTROPHIL # 9.7 TH/MM3 (1.8-7.7); BASOPHIL # 0.1 TH/MM3 (0-0.2); BASOPHIL % 0.8 % (0.0-2.0); EOSINOPHIL % 0.1 % (0.0-4.0); HEMATOCRIT 25.8 % (39.0-51.0); HEMO FLAGS DIFF FINAL; LYMPH % 7.2 % (9.0-44.0); LYMPHOCYTE # 0.8 TH/MM3 (1.0-4.8); MEAN CELL VOLUME 100.4 FL (80.0-100.0); MEAN CORPUSCULAR HEMOGLOBIN 33.9 PG (27.0-34.0); MEAN CORPUSCULAR HGB CONC 33.8 % (32.0-36.0); MONO % 4.8 % (0.0-8.0); NEUT % 87.1 % (16.0-70.0); PLATELET COUNT 241 TH/MM3 (150-450); RED BLOOD COUNT 2.57 MIL/MM3 (4.50-5.90); RED CELL DISTRIBUTION WIDTH 16.3 % (11.6-17.2); WHITE BLOOD COUNT 11.2 TH/MM3 (4.0-11.0)
[2017-04-10 06:24] LABS: ALT (GPT) 108 U/L (12-78); ANION GAP 12 MEQ/L (5-15); AST (GOT) 119 U/L (15-37); BICARBONATE 25.1 MEQ/L (21.0-32.0); BLOOD UREA NITROGEN 23 MG/DL (7-18); CHLORIDE 109 MEQ/L (98-107); GLOMERULAR FILTRATION RATE 141 ML/MIN (>89); MAGNESIUM 1.8 MG/DL (1.5-2.5); POTASSIUM 3.4 MEQ/L (3.5-5.1); SODIUM (NA) 146 MEQ/L (136-145)
[2017-04-10 06:27] LABS: ALKALINE PHOSPHATASE 386 U/L (45-117); TOTAL BILIRUBIN ADULT 1.8 MG/DL (0.2-1.0)
[2017-04-10] MEDS: CHLORHEXIDINE 0.12% (ORAL KIT) 15 ML CUP MT SCH ×2 (08:34→20:28)
[2017-04-10] MEDS: MUPIROCIN 2% OINT 1 APPLIC/GM SYR EACH NARE SCH ×2 (08:36→20:30)
[2017-04-10] MEDS: LACTOBACILLUS ACIDOPHILUS TAB PO SCH ×3 (08:37→17:08)
[2017-04-10] MEDS: DOCUSATE SODIUM 100 MG/10 ML UDC PO SCH ×2 (08:37→20:31)
[2017-04-10] MEDS: LACTULOSE SYRUP 20 GM/30 ML CUP PO SCH ×2 (08:37→20:31)
[2017-04-10] MEDS: POTASSIUM CHLORIDE 25 MEQ EFFERVESCENT TAB PO PRN (08:37)
[2017-04-10] MEDS: RIFAXIMIN 550 MG TAB PO SCH ×2 (08:37→20:30)
[2017-04-10] MEDS: THIAMINE HCL 100 MG TAB PO SCH (08:38)
[2017-04-10] MEDS: HYDROCORTISONE SOD SUCCINATE 100 MG VIAL IV PUSH SCH (08:38)
[2017-04-10] MEDS: PANTOPRAZOLE SODIUM 40 MG VIAL IV SCH (08:39)
[2017-04-10] MEDS: SODIUM CHLORIDE 0.9% FLUSH 10 ML FLUSH IV FLUSH SCH ×2 (08:39→20:30)
[2017-04-10] MEDS: SODIUM CHLORIDE 0.9% FLUSH 10 ML FLUSH IVF SCH (08:40)
[2017-04-10] MEDS: ARTIFICIAL TEARS OPTH SOLN 15 ML BTL EACH EYE SCH ×3 (08:40→17:08)
[2017-04-10] MEDS: NYSTATIN 100,000 U/GM PWD 15 GM BTL TOPICAL SCH ×2 (08:55→20:32)
--- NOTE | 2017-04-10 12:41 | HHI.CCPN ---
Subjective Remarks/Hospital Course This is a 61-year-old male with a past history of alcohol abuse and a prior admission in 2015 for severe life-threatening hyponatremia at that time with a serum sodium of 98. He presents today with what he states is a 13 day history of worsening fatigue and weakness. He is very altered and is very difficult to understand the patient. What I can understand from him, is that at some point during these 13 days he has fallen and hit his face. Otherwise he states he lays on the couch, and has not gotten not much. He states he drinks 1 beer in the morning, and 1 beer in the afternoon. He does endorse taking some Xanax to help him sleep. He denies other drug use. He denies chest pain, shortness of breath, fever, chills, nausea, vomiting, abdominal pain. It is very difficult to get him to answer anymore questions about his medical history. His speech is very slurred and he is trying to talk about how he misses his daughter. Emergency department he was found to have a serum sodium of 99, a bilirubin of 8.9, lactate of 9.8, ammonia of 60, CK of 7000, elevated troponin of 4.9 with a normal MB ratio, creatinine 1.5, serum bicarbonate of 13. His white count is 12 , platelets 112. INR 1.9. His MELD calculates at 26. 4/2: Sodium level rapidly corrected overnight, likely secondary to appropriate correction of severe life-threatening dehydration. NS fluids changed to 1/2NS and correction slowed down significantly. sodium up to 130 this AM. CK downtrending. however, patient remains severely hypotensive requiring Levophed to maintain a map > 65 mmHg. This AM, serum K 1.6 (confirmed). started replacement with 200meq KCl and recheck K. 03/04: persists in vasoplegic distributive shock. afebrile. no evidence of infection. wbc downtrending. persists with severe life-threatening electrolyte derangements. passed swallow eval for nectar thick liquids. sodium stable at 131. ck downtrending. 03/05: persists in distributive shock. echo yesterday with EF 30%, globally decreased function. milrinone added yesterday with improvement in vasopressor requirement. still with multiple electrolyte abnormalities despite very aggressive replacement. very poor appetite. sodium stable at 131, which appears to be around baseline for him, looking back at prior records. also became agitated and delirious yesterday, likely secondary to etoh withdraw. started on Ativan and Librium. 03/06: electrolyte derangements persist. placed on continuous NaPhos infusion x 24h due to severe life-threatening hypophosphatemia. serial K, phos checks. weaning off levophed, milrinone persists. still poor appetite. sodium jumped from 132 to 139, but no significant mental status change, and we did not increase sodium load. 03/07: still requiring high electrolyte replacement. milrinone weaned to 0.375 mcg /kg/min overnight. still doing well with that. delirium persists. 03/08 Remains on milrinone. Electrolyte improving. Remains very lethargic, intermittently follows commands 03/09: Continues to be lethargic but wakes up follows some commands. Remains on milrinone will DC today. T max 100.1, urine output adequate sodium is 143 03/10: More awake alert, ate 50% of break fast. Will DC Dobhoff. Discontinue arterial and central lines. Delirium also improved, remains weak 03/11: doing much better this morning. no complaints. still with poor appetite. electrolytes improved. 03/20: We consulted for respiratory failure. Patient was last seen in room 1415 CMP receiving oral cares and became acutely hypoxic saturations 82% with coarse breath sounds. Halicat called. Patient was placed on a Venturi mask 50 % with desaturations to the mid 90s. He received Solu-Medrol 20 mg IV 1, Lasix 40 mg IV 1 and was transferred IM [facility] 521. Hemodynamically stable. Poor mentation 03/25: Reconsulted due to respiratory failure. Patient with gurgling/ transmitted upper airway sounds. Respiration the 50s. Decision made to orotracheally intubate. Noted to have been febrile with increased O2 course over the past 48 hours. 03/26: Afebrile. Requiring Nimbex drip for ventilator synchrony. Decreased urine output noted. Hemoglobin decreased likely dilutional. Tolerating tube feeding. Electrolytes been replaced. 03/27: Tmax 100.9. Currently 97.2. +6 L past 24 hours. Hemoglobin 8 transfuse overnight. Potassium 3. We'll discontinue Nimbex drip for vent synchrony today. 03/28: Afebrile. Negative fluid balance past 24 hours. Hemoglobin currently 9. Potassium 3.0. Currently on sedation vacation positive gag and otherwise unresponsive. 03/29: Tmax 103. Currently afebrile. Not tolerating tube feeds. Remains on Kiran-Synephrine. Did not tolerate sedation vacation back on Versed at 5 mg an hour fentanyl drip at 100 mcg an hour. One bowel movement. 03/30 Tube feeds remain on hold. On neosynephrine 40 mcg/min, RN states she has been weaning. Having BMs. On Versed 8 mg/hr and fentanyl 100 mcg/hr. 03/31 Off versed. Remains on fentanyl 100 mcg/hr. Having hiccups. Still on neosynephrine 40 mcg/min. Tolerating trickle feeds. Had 2 bowel movements 04/01: no meaningful change. still requires fentanyl for sedation. still on low- dose vasopressors. 04/02: no changes. still on levo @ 7 mcg/min. unable to wean off fentanyl due to tachycardia and tachypnea. 04/03: Off all sedation. On low-dose norepinephrine. Essentially unresponsive on the ventilator. Plan for likely withdrawal of care tomorrow 04/04: Off all sedation. Off all vasopressors. According to overnight RN was following commands. Will open eyes but not following commands this AM. 04/05 No events overnight. Afebrile On no sedation. 04/06: Resting comfortably in bed. Eyes are open. Moving head back and forth continuously. Weakly following commands with his upper and lower extremities. 04/07: Low-grade temperatures overnight. 99.8. Eyes are open. Moving back and forth. Positive BM. Continues to be following commands. 04/08 Patient remains intubated on no sedation awake and follows commands. Tmax 100.8 04/09 Patient remains intubated, tolerated CPAP all day and had good responses in UO with Bumex yesterday. Afebrile. Subjective: 04/10: Tmax 99.1. Went back on set rate ventilation yesterday. Will attempt PSV trials throughout the day with goal to attempt extubation tomorrow. Objective Vital Signs Date Time Temp Pulse Resp B/P Pulse Ox O2 Delivery O2 Flow Rate FiO2 04/10/17 12:23 95 35 04/10/17 10:00 107 04/10/17 09:00 24 121/76 5/10/17 08:00 99.1 Intake and Output 04/09/17 04/09/17 04/10/17 08:00 16:00 00:00 Intake Total 600 ml 712 ml 709 ml Output Total 240 ml 120 ml 1950 ml Balance 360 ml 592 ml -1241 ml Result Diagram: 04/10/17 0443 04/10/17 0443 Other Results Microbiology Date/Time Procedure Status Source Growth 04/08/17 15:00 Gram Stain - Final Complete Sputum Endotracheal 04/08/17 15:00 Sputum Culture - Final Complete Sputum Endotracheal MODERATE GROWTH NORMAL RESPIRATORY BERNARD Imaging Last Impressions Chest X-Ray 04/08/17 0600 Signed Impressions: Service Date/Time: Saturday, April 08, 2017 05:10 - CONCLUSION: 1. Endotracheal tube and weighted feeding tube. 2. Bilateral pulmonary infiltrates. Some improvement from the prior study. Cheo Barrera Jr., MD Abdomen X-Ray 04/08/17 0000 Signed Impressions: Service Date/Time: Saturday, April 08, 2017 23:55 - CONCLUSION: Dobbhoff tube coiled in the stomach. Cheo Barrera Jr., MD Head Magnetic Resonance Angiography 03/28/17 0000 Signed Impressions: Service Date/Time: March 17:22 - CONCLUSION: Unremarkable examination. KShiv Castillo MD Brain MRI 03/28/17 0000 Signed Impressions: Service Date/Time: March 17:22 - CONCLUSION: 1. 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 Small subacute ischemic bilateral thalamic infarcts. 2. There has been no significant change when compared to the prior exam. Yinka Harman MD Lower Extremity Ultrasound 03/25/17 0000 Signed Impressions: Service Date/Time: Saturday, March 25, 2017 22:17 - CONCLUSION: No evidence of DVT. Víctor Rosas MD CT Angiography 03/21/17 0000 Signed Impressions: Service Date/Time: March 00:33 - CONCLUSION: No evidence of pulmonary embolism is identified. Mild atelectasis left lung base. Fluid or phlegm within the trachea. Milo Muhammad MD Abdomen Ultrasound 03/20/17 0000 Signed Impressions: Service Date/Time: Monday, March 20, 2017 11:38 - CONCLUSION: 1. Hepatosplenomegaly without focal lesion. 2. Probable sludge within the lumen of the gallbladder. No intrahepatic duct. Cheo Martínez MD Shoulder X-Ray 03/02/17 1404 Signed Impressions: Service Date/Time: Thursday, March 02, 2017 15:18 - CONCLUSION: No evidence of recent bony injury. Deformity of the lateral left clavicle suggests old healed trauma. Cheo Martínez MD Maxillofacial CT 03/02/17 1342 Signed Impressions: Service Date/Time: Thursday, March 02, 2017 14:52 - CONCLUSION: Negative CT of the facial bones. Cheo Martínez MD Head CT 03/02/17 1342 Signed Impressions: Service Date/Time: Thursday, March 02, 2017 14:52 - CONCLUSION: 1. Prominent scalp swelling left frontal and parietal region. No skull fracture seen. 2. Intracranial contents are intact without acute finding. Cheo Martínez MD Chest CT 03/02/17 1342 Signed Impressions: Service Date/Time: Thursday, March 02, 2017 15:04 - CONCLUSION: 1. Abnormal appearance of the lateral left clavicle suggesting a combination of acute and chronic bony injury. Fracture lucencies without bridging callus is seen the region of the coracoid process. 2. The lungs are clear. No evidence of pneumothorax. 3. Moderate size hiatus hernia. Cheo Martínez MD Cervical Spine CT 03/02/17 1342 Signed Impressions: Service Date/Time: Thursday, March 02, 2017 14:52 - CONCLUSION: Negative CT cervical spine. Cheo Martínez MD Abdomen/Pelvis CT 03/02/17 1342 Signed Impressions: Service Date/Time: Thursday, March 02, 2017 15:04 - CONCLUSION: Moderate size hiatus hernia. Scattered small sigmoid diverticula. Otherwise negative exam. Cheo Martínez MD Objective Remarks GENERAL: 61-year-old chronically ill appearing male, currently critically ill, orotracheally intubated. HEENT: Healing abrasion left side scalp. TIMOTHY. Scleral icterus. Very poor dentition. NECK: Trachea Midline RESP: Coarse breath sounds bilaterally. Few wheezes. CARDIOVASCULAR: Tachycardia, RR. ABDOMEN: Slightly distended but soft, bowel sounds present, tolerating tube feeds. : Johns in place with conrad urine output. mild/moderate scrotal edema. MUSCULOSKELETAL: No obvious deformity. 1+ edema all extremities NEUROLOGICAL: + gag and cough. Opens eyes and weakly following commands with upper and lower extremities. Date of Insertion: Mar 25, 2017 A/P Assessment and Plan Neuro/Psych: Osmotic demyelination syndrome Acute toxic metabolic encephalopathy secondary to hypercarbic respiratory failure Alcohol dependence History of EtOH induced seizure withdrawal Chronic benzodiazepine use Bilateral thalamic CVA Off all sedation oxycodone 5 mg every 4 hours as needed for pain Zyprexa wean to 5 mg po daily and attempt to wean off MRI 03/21 - T1/T2 prolonged with sparing of this central appears final fibers. 2 small spots in the posterior central spinal tract consistent with Osmotic demyelination syndrome. ODS most likely from correction of Na, with underlying alcoholism. MRI brain 03/28 revealed subacute bilateral thalamic lacunar infarcts, CPM. CT head 03/05 revealed no acute intracranial findings Continue thiamine Seen by neurology/Dr. Mazariegos. Respiratory: Acute hypoxemic hypercapnic respiratory failure PRVC 18/550/1.2/ Currently a PSV trial Ventilator bundle Bronchodilator therapy every 4 hours and as needed SBT daily as pablo. Cardiovascular: Chronic Systolic heart failure Echocardiogram 03/04 revealed EF 35-40%. Mild mR. Left atrium dilated. JANE 33 mmHg TSH within normal limits 0.8 Wean off hydrocortisone currently 50 every day 2 then discontinue Continue midodrine 10 mg 3 times Monitor HR and BP keep MAP>65mmHg Renal: Acute Kidney Injury- Rhabdomyolysis- resolved ODS-see neuro Monitor renal function, I/O's, electrolytes replacement per protocol. Diurese with Bumex 1mg x1, Will need K replacement today. GI: EtOH cirrhosis Hyperammonemia Hiatal hernia Sigmoid diverticulosis History of umbilical hernia repair Hypoalbuminemia Continue tub feeds Jevity 1.5 with goal rate 60ml/hr On Xifaxan 550 twice a day/lactulose 30 twice a day. LFT is elevated. Ultrasound liver-hepatosplenomegaly. Sludge in gallbladder On IV Protonix Reglan 10 every 8 hours/prokinetic agent. Heme: Leukocytosis Macrocytic anemia Monitor CBC. No indications for transfusion of blood proximally postop B12 1452, Folate 15.2. TSH 0.8. ID: Likely aspiration pneumonia Escherichia coli UTI 03/11 - completed therapy Acinetobacter pneumonia Pertinent cultures 04/08 - blood cultures 2 - no growth - sputum - no growth 04/05 - urine -C GLABRATA AND C. ALBICANS 03/29 - blood cultures 2 - NGTD 03/25 - sputum --Acinetobacter. 03/25 - urine - NGTD 03/25 - blood cultures 2 -no growth 03/22 - urine - no growth 03/22 - blood cultures 2 - negative 03/20 - blood cultures 2 - no growth 03/11 - urine - Escherichia coli 03/02 - blood cultures 2 - no growth Pancultured 04/08 ( Blood cx x 2 sets, sputum, UA with cx if needed) Followed by Dr. Lisa/ID. Now on Unasyn perID since 03/28, Flagyl po 03/24 . sputum culture from 03/25 positive for Acinetobacter, sensitive to Unasyn. . Tobramycin aerosols completed Endocrine: Hyperglycemia of critical illness History of hypothyroidism SSI with Accu-Cheks every 4 hours to maintain euglycemia MSK: History of old left clavicle fracture PT/OT evaluate and treat Access Peripheral IV. Central line if indicated Prophylaxis: GI - Protonix DVT - SCD/heparin subcutaneous Palliative care is following code status changed to full code per daughter's request. Tamanna Sandhu, daughter/ HCP: from [facility] [phone] now confirmed transferred to [facility] in [place] facility ) Code status -full code Level 3 Larry Ruby MD April 10, 2017 12:41
[2017-04-10] MEDS ORDERED: POTASSIUM CHLORIDE 20 MEQ PWD PACKET PO ONE (13:00)
[2017-04-10] MEDS ORDERED: ALBUMIN HUMAN 25% 25 GM/100 ML BAGP IV ONE (13:00)
[2017-04-10] MEDS ORDERED: BUMETANIDE INJ 1 MG/4 ML VIAL IV PUSH ONE (13:00)
[2017-04-10] MEDS: POTASSIUM PHOSPHATE/SODIUM PHOSPHATE 250 MG TAB PO SCH ×2 (13:35→22:53)
[2017-04-10] MEDS: MAGNESIUM SULFATE 1 GM PREMIX 100 ML IV SCH ×2 (13:35→14:34)
--- NOTE | 2017-04-10 13:36 | HHI.IDPN ---
Subjective Subjective Remarks Notes reviewed D/W RN On the vent, tolerating CPAP Not on pressors Possible extubation today Repeat UA normal Repeat sputum with normal derrick Antibiotics Unasyn Flagyl Tobra nebs Lines PIV Past Medical History ETOHism Allergies: Coded Allergies: PEANUTS (Unverified Allergy, Severe, 03/02/17) *MDRO Multi-Drug Resistant Organism (Verified Adverse Reaction, Unknown, ) MRSA PCR screen POSITIVE - 03/02/17 MDR Acinetobacter (sputum) - 03/25/17 Objective . Vital Signs Date Time Temp Pulse Resp B/P Pulse Ox O2 Delivery O2 Flow Rate FiO2 04/10/17 12:23 95 35 04/10/17 10:00 107 04/10/17 09:00 102 04/10/17 09:00 102 24 121/76 95 04/10/17 08:00 99.1 106 26 111/71 04/10/17 08:00 106 04/10/17 08:00 35 04/10/17 06:00 93 04/10/17 04:29 96 35 04/10/17 04:00 35 04/10/17 04:00 104 04/10/17 04:00 98.6 104 23 107/72 96 04/10/17 02:00 91 04/10/17 01:32 96 35 04/10/17 00:00 99 04/10/17 00:00 98.8 101 22 115/76 96 04/10/17 00:00 35 04/09/17 23:52 18 04/09/17 22:56 35 04/09/17 22:56 97 35 04/09/17 22:00 104 04/09/17 20:00 99 04/09/17 20:00 35 04/09/17 20:00 94 35 04/09/17 20:00 98.4 101 23 115/76 94 04/09/17 18:00 104 04/09/17 17:00 113 04/09/17 16:08 96 35 04/09/17 16:00 101 04/09/17 16:00 101 04/09/17 16:00 35 04/09/17 16:00 101 34 103/68 95 04/09/17 15:00 109 04/09/17 15:00 109 04/09/17 15:00 109 29 104/68 94 04/09/17 14:00 125 04/09/17 14:00 125 04/09/17 14:00 35 04/09/17 14:00 125 27 139/84 95 04/09/17 04/09/17 04/10/17 15:00 23:00 07:00 Intake Total 712 ml 709 ml 740 ml Output Total 120 ml 1950 ml 275 ml Balance 592 ml -1241 ml 465 ml IV Total 272 ml 289 ml 200 ml Tube Feeding 240 ml 300 ml 420 ml Other 200 ml 120 ml 120 ml Output Urine Total 120 ml 1950 ml 275 ml Stool Total 0 ml 0 ml # Bowel Movements 2 . Laboratory Tests Test 04/09/17 04/10/17 05:10 04:43 White Blood Count 15.5 TH/MM3 11.2 TH/MM3 Red Blood Count 2.88 MIL/MM3 2.57 MIL/MM3 Hemoglobin 9.5 GM/DL 8.7 GM/DL Hematocrit 28.9 % 25.8 % Mean Corpuscular Volume 100.1 FL 100.4 FL Mean Corpuscular Hemoglobin 32.8 PG 33.9 PG Mean Corpuscular Hemoglobin 32.8 % 33.8 % Concent Red Cell Distribution Width 16.1 % 16.3 % Platelet Count 299 TH/MM3 241 TH/MM3 Mean Platelet Volume 7.5 FL 7.9 FL Neutrophils (%) (Auto) 85.6 % 87.1 % Lymphocytes (%) (Auto) 8.9 % 7.2 % Monocytes (%) (Auto) 5.1 % 4.8 % Eosinophils (%) (Auto) 0.1 % 0.1 % Basophils (%) (Auto) 0.3 % 0.8 % Neutrophils # (Auto) 13.3 TH/MM3 9.7 TH/MM3 Lymphocytes # (Auto) 1.4 TH/MM3 0.8 TH/MM3 Monocytes # (Auto) 0.8 TH/MM3 0.5 TH/MM3 Eosinophils # (Auto) 0.0 TH/MM3 0.0 TH/MM3 Basophils # (Auto) 0.0 TH/MM3 0.1 TH/MM3 CBC Comment DIFF FINAL DIFF FINAL Differential Comment Laboratory Tests Test 04/09/17 04/10/17 05:10 04:43 Sodium Level 145 MEQ/L 146 MEQ/L Potassium Level 3.2 MEQ/L 3.4 MEQ/L Chloride Level 109 MEQ/L 109 MEQ/L Carbon Dioxide Level 25.2 MEQ/L 25.1 MEQ/L Anion Gap 11 MEQ/L 12 MEQ/L Blood Urea Nitrogen 22 MG/DL 23 MG/DL Creatinine 0.65 MG/DL 0.59 MG/DL Estimat Glomerular Filtration 126 ML/MIN 141 ML/MIN Rate Random Glucose 136 MG/DL 174 MG/DL Calcium Level 8.1 MG/DL 8.0 MG/DL Phosphorus Level 2.6 MG/DL 2.2 MG/DL Magnesium Level 1.9 MG/DL 1.8 MG/DL Total Bilirubin 2.0 MG/DL 1.8 MG/DL Aspartate Amino Transf 158 U/L 119 U/L (AST/SGOT) Alanine Aminotransferase 129 U/L 108 U/L (ALT/SGPT) Alkaline Phosphatase 462 U/L 386 U/L Total Protein 5.8 GM/DL 5.5 GM/DL Albumin 1.7 GM/DL 1.6 GM/DL Microbiology Date/Time Procedure Status Source Growth 04/08/17 10:07 Aerobic Blood Culture - Preliminary Resulted Blood Peripheral NO GROWTH IN 2 DAYS 04/08/17 10:07 Anaerobic Blood Culture - Preliminary Resulted Blood Peripheral NO GROWTH IN 2 DAYS 04/08/17 10:12 Aerobic Blood Culture - Preliminary Resulted Blood Peripheral NO GROWTH IN 2 DAYS 04/08/17 10:12 Anaerobic Blood Culture - Preliminary Resulted Blood Peripheral NO GROWTH IN 2 DAYS 04/08/17 15:00 Gram Stain - Final Complete Sputum Endotracheal 04/08/17 15:00 Sputum Culture - Final Complete Sputum Endotracheal MODERATE GROWTH NORMAL RESPIRATORY DERRICK Imaging Chest X-Ray 04/08/17 0600 Signed Impressions: Service Date/Time: Saturday, April 08, 2017 05:10 - CONCLUSION: 1. Endotracheal tube and weighted feeding tube. 2. Bilateral pulmonary infiltrates. Some improvement from the prior study. Cheo Barrera Jr., MD Chest X-Ray 03/27/17 06 Signed Impressions: Service Date/Time: Monday, March 27, 2017 02:33 - CONCLUSION: No significant interval change. Víctor Rosas MD Chest X-Ray 03/26/17 0600 Signed Impressions: Service Date/Time: Sunday, March 26, 2017 05:35 - CONCLUSION: Improving bilateral pulmonary infiltrates Víctor Rosas MD Chest X-Ray 03/25/17 1004 Signed Impressions: Service Date/Time: Saturday, March 25, 2017 10:03 - CONCLUSION: 1. Worsening bibasilar consolidation. 2. Endotracheal tube with tip at the thoracic inlet and should be advanced at least 3-4 cm. 3. Adequate placement of left jugular central line without pneumothorax. Logan Morgan MD Chest X-Ray 03/26/17 0600 Signed Impressions: Service Date/Time: Sunday, March 26, 2017 05:35 - CONCLUSION: Improving bilateral pulmonary infiltrates Víctor Rosas MD Lower Extremity Ultrasound 03/25/17 0000 Signed Impressions: Service Date/Time: Saturday, March 25, 2017 22:17 - CONCLUSION: No evidence of DVT. Víctor Rosas MD CT Angiography 03/21/17 0000 Signed Impressions: Service Date/Time: March 00:33 - CONCLUSION: No evidence of pulmonary embolism is identified. Mild atelectasis left lung base. Fluid or phlegm within the trachea. Milo Muhammad MD Brain MRI 03/20/17 0000 Signed Impressions: Service Date/Time: Monday, March 20, 2017 16:11 - CONCLUSION: Abnormal appearance to the ruthy with some extension into the cortical spinal tracts of the posterior thalamus was bilaterally. 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 Cheo Martínez MD Abdomen X-Ray 03/20/17 0000 Signed Impressions: Service Date/Time: Monday, March 20, 2017 18:12 - CONCLUSION: Tip of the Dobbhoff tube projecting towards the pylorus. Cheo Barrera Jr., MD Abdomen Ultrasound 03/20/17 0000 Signed Impressions: Service Date/Time: Monday, March 20, 2017 11:38 - CONCLUSION: 1. Hepatosplenomegaly without focal lesion. 2. Probable sludge within the lumen of the gallbladder. No intrahepatic duct. Cheo Martínez MD Shoulder X-Ray 03/02/17 1404 Signed Impressions: Service Date/Time: Thursday, March 02, 2017 15:18 - CONCLUSION: No evidence of recent bony injury. Deformity of the lateral left clavicle suggests old healed trauma. Cheo Martínez MD Maxillofacial CT 03/02/17 1342 Signed Impressions: Service Date/Time: Thursday, March 02, 2017 14:52 - CONCLUSION: Negative CT of the facial bones. Cheo Martínez MD Head CT 03/02/17 1342 Signed Impressions: Service Date/Time: Thursday, March 02, 2017 14:52 - CONCLUSION: 1. Prominent scalp swelling left frontal and parietal region. No skull fracture seen. 2. Intracranial contents are intact without acute finding. Cheo Martínez MD Chest CT 03/02/17 1342 Signed Impressions: Service Date/Time: Thursday, March 02, 2017 15:04 - CONCLUSION: 1. Abnormal appearance of the lateral left clavicle suggesting a combination of acute and chronic bony injury. Fracture lucencies without bridging callus is seen the region of the coracoid process. 2. The lungs are clear. No evidence of pneumothorax. 3. Moderate size hiatus hernia. Cheo Martínez MD Cervical Spine CT 03/02/17 1342 Signed Impressions: Service Date/Time: Thursday, March 02, 2017 14:52 - CONCLUSION: Negative CT cervical spine. Cheo Martínez MD Abdomen/Pelvis CT 03/02/17 1342 Signed Impressions: Service Date/Time: Thursday, March 02, 2017 15:04 - CONCLUSION: Moderate size hiatus hernia. Scattered small sigmoid diverticula. Otherwise negative exam. Cheo Martínez MD Chest X-Ray 03/25/17 1004 Signed Impressions: Service Date/Time: Saturday, March 25, 2017 10:03 - CONCLUSION: 1. Worsening bibasilar consolidation. 2. Endotracheal tube with tip at the thoracic inlet and should be advanced at least 3-4 cm. 3. Adequate placement of left jugular central line without pneumothorax. Logan Morgan MD Chest X-Ray 03/23/17 0000 Signed Impressions: Service Date/Time: Thursday, March 23, 2017 14:27 - CONCLUSION: 1. Feeding tube in place with what appears to be a loop in the hypopharynx. 2. Bibasilar areas of consolidation or atelectasis. Casper Vargas MD Physical Exam GENERAL: Awake on CPAP, focusing, NAD SKIN: Warm and dry. No generalized rash. HEENT: Pupils equal round and reactive. Orally intubated. Poor dentition. A lot of oral secretions NECK: Supple, nontender, no meningeal signs. Previous line site ok CARDIOVASCULAR: Regular rate and rhythm without murmurs, gallops, or rubs. RESPIRATORY: Has few scattered rhonchi, decreased BS at bases GASTROINTESTINAL: Abdomen mildly distended, bowel sounds are present and normoactive, no reaction to palpation MUSCULOSKELETAL: Lower extremities without clubbing, cyanosis. Developing some pedal edema. No joint effusion. NEUROLOGICAL: Awake and focusing : Johns cath in place, urine looks better LINE: PIV no evidence of infection Assessment & Plan Remarks IMPRESSION Sepsis syndrome, due to PNA - on vent - has MDR Acinetobacter MDR Acinetobacter PNA Septic shock, BP better Known ETOH abuse Encephalopathy - sepsis, ETOH, CPM Respiratory failure, tolerating CPAP Diarrhea, C diff negative Nuvia in UC, repeat UA normal, without Rx RECOMMENDATION Continue Unasyn for MDR Acinetobacter - stop after tonight's dose Stop Flagyl Possible extubation Monitor clinically D/W RN D/W RN Umm Lisa MD April 10, 2017 13:36
[2017-04-10] MEDS: FREE WATER G-TUBE SCH ×2 (13:39→22:00)
--- NOTE | 2017-04-10 15:04 | HHI.HCPN ---
Reason for visit a. To assist with evaluation and management of symptoms including: dyspnea, pain. b. To assist medical decision maker(s) with: better understanding of current medical conditions; weighing benefits/burdens of medical treatment options; making medical treatment decisions. . (Melissa Mcclure) Subjective/Interval History Palliative care follow-up for further clarifications of goals of care and to assist with communication. Patient seen in ICU, he remains intubated on mechanical ventilation. Ongoing CPAP trials. Plan for possible medical extubation tomorrow 04/11/17. Patient remains off sedation, awake. Following some simple commands with all 4 extremities such as "squeeze my hand and wiggling her fingers and toes". Patient mouthing his name when asked. Intermittently nodding head to simple yes/no questions. shrugging his shoulders at times. Laboratory today showing WBC 11.2, hemoglobin 8.7, platelet count 241. Sodium 146, potassium 3.4, BUN/creatinine 23/0.59. Liver enzymes remain elevated, AST 119, ALT 108, alkaline phosphatase 386. Albumin 1.6. Most recent chest x-ray 04/08/17 revealing bilateral pulmonary infiltrates. Discussed case with Dr. Ruby and bedside RN. Ongoing CPAP trials, attempt at medical extubation tentative for tomorrow 04/11/17. Patient at a very high risk for reintubation, need for tracheostomy, and vent dependency. Palliative care to follow what with patient's daughter Amie who is currently under the custody of [facility]. . Family/friend interactions See interval note. . (Melissa Mcclure) Advance Directives Living Will: Never completed Health Care Surrogate: Never completed Durable Power of Entry Specialists: Never completed (Melissa Mcclure) Advance Directive Specifics Health Care Surrogate(s): Margot Nolen is, per [place] statues bam care decision proxy. Now in [facility] (#[phone]). Facilitation of conversations with Tamanna can be arranged through booking (#[phone]) in emergency situations to address goals of care.Ask for a [place] on staff as shifts rotate throughout the week. Significant change in goals: Full code. Continue aggressive care at this time. . (Melissa Mcclure) Objective Vital Signs Date Time Temp Pulse Resp B/P Pulse Ox O2 Delivery O2 Flow Rate FiO2 04/10/17 12:23 95 35 04/10/17 10:00 107 04/10/17 09:00 102 04/10/17 09:00 102 24 121/76 95 04/10/17 08:00 99.1 106 26 111/71 04/10/17 08:00 106 04/10/17 08:00 35 04/10/17 06:00 93 04/10/17 04:29 96 35 04/10/17 04:00 35 04/10/17 04:00 104 04/10/17 04:00 98.6 104 23 107/72 96 04/10/17 02:00 91 04/10/17 01:32 96 35 04/10/17 00:00 99 04/10/17 00:00 98.8 101 22 115/76 96 04/10/17 00:00 35 04/09/17 23:52 18 04/09/17 22:56 35 04/09/17 22:56 97 35 04/09/17 22:00 104 04/09/17 20:00 99 04/09/17 20:00 35 04/09/17 20:00 94 35 04/09/17 20:00 98.4 101 23 115/76 94 04/09/17 18:00 104 04/09/17 17:00 113 04/09/17 16:08 96 35 04/09/17 16:00 101 04/09/17 16:00 101 04/09/17 16:00 35 04/09/17 16:00 101 34 103/68 95 04/09/17 15:00 109 04/09/17 15:00 109 04/09/17 15:00 109 29 104/68 94 Intake & Output 04/10/17 04/10/17 07:00 19:00 Intake Total 1449 ml Output Total 525 ml Balance 924 ml IV Total 489 ml Tube Feeding 720 ml Other 240 ml Output Urine Total 525 ml Stool Total 0 ml # Bowel Movements 1 Physical Exam CONSTITUTIONAL/GENERAL: This is an thin, pale appearing patient, in no apparent distress. Intubated on mechanical ventilation. TUBES/LINES/DRAINS: ETT, OG, Johns, SCDs. Bilateral heel boots. SKIN: Ecchymosis bilateral UEs. Erythema/rash to forehead and bilateral cheeks. Skin temperature appropriate. CARDIOVASCULAR: Tachycardic and heart rate in the low 110s. No murmurs, gallops , or rubs. Peripheral pulses symmetric. RESPIRATORY/CHEST: Symmetric, unlabored respirations. Coarse rhonchi anteriorly. Remains intubated on mechanical ventilation, ongoing CPAP trials. GASTROINTESTINAL: Abdomen round, soft, non-tender. Positive bowel sounds. Ongoing tube feedings via NG tube. GENITOURINARY: Without palpable bladder distension. Johns catheter in place. Erythema groin area. MUSCULOSKELETAL: Generalized edema noted. No mottling or clubbing. Very weak hand grasp bilaterally left more than right. Moving all extremities to command. NEUROLOGICAL: Awake, alert. Eyes open, tracking. Mouthing some words and following simple commands today. PSYCHIATRIC: Difficult to assess secondary to intubation/mechanical ventilation. Appears calm. . (Melissa Mcclure) Diagnostic Tests Laboratory Laboratory Tests Test 04/07/17 04/07/17 04/08/17 04/08/17 18:20 23:14 04:52 10:12 Potassium Level 4.2 MEQ/L 4.0 MEQ/L (3.5-5.1) (3.5-5.1) Sodium Level 143 MEQ/L (136-145) Chloride Level 109 MEQ/L (98-107) Carbon Dioxide Level 24.1 MEQ/L (21.0-32.0) Anion Gap 10 MEQ/L (5-15) Blood Urea Nitrogen 23 MG/DL (7-18) Creatinine 0.74 MG/DL (0.60-1.30) Estimat Glomerular Filtration 108 ML/MIN Rate (>89) Random Glucose 150 MG/DL (74-106) Calcium Level 7.5 MG/DL (8.5-10.1) Phosphorus Level 2.2 MG/DL 2.8 MG/DL (2.5-4.9) (2.5-4.9) Magnesium Level 2.0 MG/DL 1.9 MG/DL (1.5-2.5) (1.5-2.5) Total Bilirubin 2.0 MG/DL (0.2-1.0) Aspartate Amino Transf 206 U/L (15-37) (AST/SGOT) Alanine Aminotransferase 138 U/L (12-78) (ALT/SGPT) Alkaline Phosphatase 487 U/L (45-117) Total Protein 5.7 GM/DL (6.4-8.2) Albumin 1.6 GM/DL (3.4-5.0) White Blood Count 12.9 TH/MM3 (4.0-11.0) Red Blood Count 2.71 MIL/MM3 (4.50-5.90) Hemoglobin 8.9 GM/DL (13.0-17.0) Hematocrit 27.2 % (39.0-51.0) Mean Corpuscular Volume 100.3 FL (80.0-100.0) Mean Corpuscular Hemoglobin 32.8 PG (27.0-34.0) Mean Corpuscular Hemoglobin 32.7 % Concent (32.0-36.0) Red Cell Distribution Width 15.9 % (11.6-17.2) Platelet Count 308 TH/MM3 (150-450) Mean Platelet Volume 7.5 FL (7.0-11.0) Neutrophils (%) (Auto) 88.6 % (16.0-70.0) Lymphocytes (%) (Auto) 6.4 % (9.0-44.0) Monocytes (%) (Auto) 4.9 % (0.0-8.0) Eosinophils (%) (Auto) 0.1 % (0.0-4.0) Basophils (%) (Auto) 0.0 % (0.0-2.0) Neutrophils # (Auto) 11.4 TH/MM3 (1.8-7.7) Lymphocytes # (Auto) 0.8 TH/MM3 (1.0-4.8) Monocytes # (Auto) 0.6 TH/MM3 (0-0.9) Eosinophils # (Auto) 0.0 TH/MM3 (0-0.4) Basophils # (Auto) 0.0 TH/MM3 (0-0.2) CBC Comment DIFF FINAL Differential Comment Test 04/08/17 04/09/17 04/10/17 12:00 05:10 04:43 Urine Color LIGHT-YELLOW (YELLW/STRAW) Urine Turbidity CLEAR (CLEAR) Urine pH 5.0 (5.0-8.5) Urine Specific [place] 1.008 (1.002-1.035) Urine Protein NEG mg/dL (NEG-TRACE) Urine Glucose (UA) NEG mg/dL (NEG) Urine Ketones NEG mg/dL (NEG) Urine Occult Blood NEG (NEG) Urine Nitrite NEG (NEG) Urine Bilirubin NEG (NEG) Urine Urobilinogen LESS THAN 2.0 MG/DL (LESS THAN 2.0) Urine Leukocyte Esterase TRACE (NEG) Urine RBC 6 /hpf (0-3) Urine WBC 3 /hpf (0-5) Urine Hyaline Casts 1 /lpf (RARE) Urine Yeast with Hyphae FEW (NONE) Urine Yeast (Budding) MOD (NONE) Microscopic Urinalysis Comment CATH-CULT NOT IND White Blood Count 15.5 TH/MM3 11.2 TH/MM3 (4.0-11.0) (4.0-11.0) Red Blood Count 2.88 MIL/MM3 2.57 MIL/MM3 (4.50-5.90) (4.50-5.90) Hemoglobin 9.5 GM/DL 8.7 GM/DL (13.0-17.0) (13.0-17.0) Hematocrit 28.9 % 25.8 % (39.0-51.0) (39.0-51.0) Mean Corpuscular Volume 100.1 FL 100.4 FL (80.0-100.0) (80.0-100.0) Mean Corpuscular Hemoglobin 32.8 PG 33.9 PG (27.0-34.0) (27.0-34.0) Mean Corpuscular Hemoglobin 32.8 % 33.8 % Concent (32.0-36.0) (32.0-36.0) Red Cell Distribution Width 16.1 % 16.3 % (11.6-17.2) (11.6-17.2) Platelet Count 299 TH/MM3 241 TH/MM3 (150-450) (150-450) Mean Platelet Volume 7.5 FL 7.9 FL (7.0-11.0) (7.0-11.0) Neutrophils (%) (Auto) 85.6 % 87.1 % (16.0-70.0) (16.0-70.0) Lymphocytes (%) (Auto) 8.9 % 7.2 % (9.0-44.0) (9.0-44.0) Monocytes (%) (Auto) 5.1 % (0.0-8.0) 4.8 % (0.0-8.0) Eosinophils (%) (Auto) 0.1 % (0.0-4.0) 0.1 % (0.0-4.0) Basophils (%) (Auto) 0.3 % (0.0-2.0) 0.8 % (0.0-2.0) Neutrophils # (Auto) 13.3 TH/MM3 9.7 TH/MM3 (1.8-7.7) (1.8-7.7) Lymphocytes # (Auto) 1.4 TH/MM3 0.8 TH/MM3 (1.0-4.8) (1.0-4.8) Monocytes # (Auto) 0.8 TH/MM3 0.5 TH/MM3 (0-0.9) (0-0.9) Eosinophils # (Auto) 0.0 TH/MM3 0.0 TH/MM3 (0-0.4) (0-0.4) Basophils # (Auto) 0.0 TH/MM3 0.1 TH/MM3 (0-0.2) (0-0.2) CBC Comment DIFF FINAL DIFF FINAL Differential Comment Sodium Level 145 MEQ/L 146 MEQ/L (136-145) (136-145) Potassium Level 3.2 MEQ/L 3.4 MEQ/L (3.5-5.1) (3.5-5.1) Chloride Level 109 MEQ/L 109 MEQ/L (98-107) (98-107) Carbon Dioxide Level 25.2 MEQ/L 25.1 MEQ/L (21.0-32.0) (21.0-32.0) Anion Gap 11 MEQ/L (5-15) 12 MEQ/L (5-15) Blood Urea Nitrogen 22 MG/DL (7-18) 23 MG/DL (7-18) Creatinine 0.65 MG/DL 0.59 MG/DL (0.60-1.30) (0.60-1.30) Estimat Glomerular Filtration 126 ML/MIN 141 ML/MIN Rate (>89) (>89) Random Glucose 136 MG/DL 174 MG/DL (74-106) (74-106) Calcium Level 8.1 MG/DL 8.0 MG/DL (8.5-10.1) (8.5-10.1) Phosphorus Level 2.6 MG/DL 2.2 MG/DL (2.5-4.9) (2.5-4.9) Magnesium Level 1.9 MG/DL 1.8 MG/DL (1.5-2.5) (1.5-2.5) Total Bilirubin 2.0 MG/DL 1.8 MG/DL (0.2-1.0) (0.2-1.0) Aspartate Amino Transf 158 U/L (15-37) 119 U/L (15-37) (AST/SGOT) Alanine Aminotransferase 129 U/L (12-78) 108 U/L (12-78) (ALT/SGPT) Alkaline Phosphatase 462 U/L 386 U/L (45-117) (45-117) Total Protein 5.8 GM/DL 5.5 GM/DL (6.4-8.2) (6.4-8.2) Albumin 1.7 GM/DL 1.6 GM/DL (3.4-5.0) (3.4-5.0) (Melissa Mcclure [facility]) Result Diagram: 04/10/17 0443 04/10/17 0443 Microbiology Microbiology Date/Time Procedure Status Source Growth 04/08/17 10:07 Aerobic Blood Culture - Preliminary Resulted Blood Peripheral NO GROWTH IN 2 DAYS 04/08/17 10:07 Anaerobic Blood Culture - Preliminary Resulted Blood Peripheral NO GROWTH IN 2 DAYS 04/08/17 10:12 Aerobic Blood Culture - Preliminary Resulted Blood Peripheral NO GROWTH IN 2 DAYS 04/08/17 10:12 Anaerobic Blood Culture - Preliminary Resulted Blood Peripheral NO GROWTH IN 2 DAYS 04/08/17 15:00 Gram Stain - Final Complete Sputum Endotracheal 04/08/17 15:00 Sputum Culture - Final Complete Sputum Endotracheal MODERATE GROWTH NORMAL RESPIRATORY BERNARD Imaging Last Impressions Chest X-Ray 04/08/17 0600 Signed Impressions: Service Date/Time: Saturday, April 08, 2017 05:10 - CONCLUSION: 1. Endotracheal tube and weighted feeding tube. 2. Bilateral pulmonary infiltrates. Some improvement from the prior study. Cheo Barrera Jr., MD Abdomen X-Ray 04/08/17 0000 Signed Impressions: Service Date/Time: Saturday, April 08, 2017 23:55 - CONCLUSION: Dobbhoff tube coiled in the stomach. Cheo Barrera Jr., MD Head Magnetic Resonance Angiography 03/28/17 0000 Signed Impressions: Service Date/Time: March 17:22 - CONCLUSION: Unremarkable examination. Bety Castillo MD Brain MRI 03/28/17 0000 Signed Impressions: Service Date/Time: March 17:22 - CONCLUSION: 1. 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 Small subacute ischemic bilateral thalamic infarcts. 2. There has been no significant change when compared to the prior exam. Yinka Harman MD Lower Extremity Ultrasound 03/25/17 0000 Signed Impressions: Service Date/Time: Saturday, March 25, 2017 22:17 - CONCLUSION: No evidence of DVT. Víctor Rosas MD CT Angiography 03/21/17 0000 Signed Impressions: Service Date/Time: March 00:33 - CONCLUSION: No evidence of pulmonary embolism is identified. Mild atelectasis left lung base. Fluid or phlegm within the trachea. Milo Muhammad MD Abdomen Ultrasound 03/20/17 0000 Signed Impressions: Service Date/Time: Monday, March 20, 2017 11:38 - CONCLUSION: 1. Hepatosplenomegaly without focal lesion. 2. Probable sludge within the lumen of the gallbladder. No intrahepatic duct. Cheo Martínez MD Shoulder X-Ray 03/02/17 1404 Signed Impressions: Service Date/Time: Thursday, March 02, 2017 15:18 - CONCLUSION: No evidence of recent bony injury. Deformity of the lateral left clavicle suggests old healed trauma. Cheo Martínez MD Maxillofacial CT 03/02/17 1342 Signed Impressions: Service Date/Time: Thursday, March 02, 2017 14:52 - CONCLUSION: Negative CT of the facial bones. Cheo Martínez MD Head CT 03/02/17 1342 Signed Impressions: Service Date/Time: Thursday, March 02, 2017 14:52 - CONCLUSION: 1. Prominent scalp swelling left frontal and parietal region. No skull fracture seen. 2. Intracranial contents are intact without acute finding. Cheo Martínez MD Chest CT 03/02/17 1342 Signed Impressions: Service Date/Time: Thursday, March 02, 2017 15:04 - CONCLUSION: 1. Abnormal appearance of the lateral left clavicle suggesting a combination of acute and chronic bony injury. Fracture lucencies without bridging callus is seen the region of the coracoid process. 2. The lungs are clear. No evidence of pneumothorax. 3. Moderate size hiatus hernia. Cheo Martínez MD Cervical Spine CT 03/02/17 1342 Signed Impressions: Service Date/Time: Thursday, March 02, 2017 14:52 - CONCLUSION: Negative CT cervical spine. Cheo Martínez MD Abdomen/Pelvis CT 03/02/17 1342 Signed Impressions: Service Date/Time: Thursday, March 02, 2017 15:04 - CONCLUSION: Moderate size hiatus hernia. Scattered small sigmoid diverticula. Otherwise negative exam. Cheo Martínez MD (Melissa Mcclure) Assessment and Plan Disease Oriented Problem List: (1) Sepsis due to Acinetobacter Comment: Sepsis syndrome secondary to pneumonia -MDR Acinetobacter (2) Acute hypoxemic respiratory failure Comment: Remains intubated on mechanical ventilation. 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 However, he is highly prone to further aspiration and increasing shortness of breath) Comment: Secondary to respiratory failure, pneumonia. Remains intubated on mechanical ventilation. (2) Pain 0-10 Scale: Unable to quantify Comment: Patient has had prolonged bedrest, and is now unable to reposition himself effectively. (3) Debility 0-10 Scale: Unable to quantify Comment: Secondary to acute illness and prolonged hospitalization. Pertinent Non-Medical Issues Psychosocial: 61-year-old with long-standing history of alcohol use and abuse, 1 daughter who is incarcerated in the [facility] long-term. Spiritual: No reported. Legal: Daughter Tamanna owen, per [place] statues bam care decision proxy. She is currently incarcerated at [facility]. They are permitting her to participate in decisions at this time. Ethical issues impacting care: As stated above. . Important Contacts * Tamanna Sandhu, daughter/ HCP: Margot Nolen is, per [place] statues bam care decision proxy. . Now in [facility] (#[phone]). Facilitation of conversations with Tamanna can be arranged through booking (#[phone]) in emergency situations to address goals of care.Ask for a [place] on staff as shifts rotate throughout the week. * Guillermo Roberts, daughter friend: [phone] (cell)- has frequent contact w Amie - has been very helpful Prognosis Prognosis: Poor prognosis for meaningful recovery. . Code Status: Full Code Plan * CODE STATUS: Full code. Code was change on 04/09/17 as per daughter's request. Benefits, risks and limitations of CPR, reintubation and mechanical ventilation were discussed with daughter given patient's clinical condition and multiple comorbidities. * HEALTHCARE DECISION-MAKING: Patient incapacitated secondary to clinical condition, unclear if he will regain capacity. Medical decision-making capacity will be reassessed once patient is extubated. Patient is , according to [place] statutes, health care proxy decision making falls to his only daughter, Tamanna. Now in [facility] (#[phone]). Facilitation of conversations with Tamanna can be arranged through booking (#[phone]) in emergency situations to address goals of care. Ask for a [place] on staff as shifts rotate throughout the week. * GOALS OF CARE: As per daughter, goals of care at this time is to continue aggressive care with attempts at medical extubation. -Spoke to patient's daughter Amie on 04/09/17. Medical update provided. Reviewed ongoing attempts at medical extubation. Daughter reports feeling hopeful of patient's improvement. Reviewed with daughter that patient remains critically ill and that even if patient is able to medically extubate, he still at high risk for reintubation, further complications, continue decline and . * SYMPTOMS: == Dyspnea, secondary to respiratory failure. Remains intubated on mechanical ventilation. Currently tolerating CPAP trials. Ongoing attempts at medical extubation. == Debility. Secondary to burden of disease, acute illness and prolonged hospitalization. == Pain, secondary to prolonged hospitalization and bedrest. Oxycodone available as needed. * Case has been discussed with Dr. Ruby and bedside RN. * Palliative care contact information has been provided to patient's daughter during prior telephone conversation. * Palliative care will continue to follow further clarifications of goals of care as patient's clinical course evolves. . (Melissa Mcclure) Time Spent Total Floor Time (mins): 33 (Total time to include review of medical records, physical exam, case discussion with Dr. Ruby and bedside RN.) >50% Counseling/Coord of Care: Yes (Melissa Mcclure) Attestation To help prompt me to consider important information that might be impacting today's encounter and assessment, information from prior notes written by myself or my colleagues may have been "brought forward" into today's note. My signature on this note, however, is an attestation that I personally performed the exam, history, and/or decision-making noted today, and, unless otherwise indicated, the interactions with patient, family, and staff as well as the review of records all occurred today. I also attest that the listed assessment and stated plan reflect my best clinical judgment today based on the combination of historical information, prior notes, and today's exam/ interactions. When time spent is documented, it refers only to time spent today by the signer, or if indicated, combined time spent today by collaborating physician/nurse practitioner. (Melissa Mcclure) Collaborating MD Comments Chart reviewed. Case discussed with palliative care CUSTOMER BUSINESS MANAGER. Above CUSTOMER BUSINESS MANAGER note reviewed and I concur. . (Greg Salas MD) Melissa Mcclure April 10, 2017 15:04 Greg Salas MD April 30, 2017 12:22
[2017-04-10 17:08] LABS: C. DIFF EPI 027 PRESUMPTIVE NEGATIVE (NEGATIVE); C. DIFF TOXIN PCR NEGATIVE (NEGATIVE)
[2017-04-10] MEDS: ACETAMINOPHEN 325 MG TAB PO PRN (20:30)
[2017-04-11] VITALS (20 sets, daily range): BP systolic 102–122; BP diastolic 64–79; PULSE 91–115; RESP 18–20; TEMP 99.6–100.2; O2SAT 92–97
[2017-04-11] MEDS: RESP: ALBUTEROL 2.5 MG/IPRATROPIUM 0.5 MG NEB (SCH) NEB ×6 (01:52→21:33)
[2017-04-11] MEDS: INSULIN NovoLIN REGULAR SUPPLEMENTAL SCALE SQ SCH ×7 (04:00→23:38)
[2017-04-11] MEDS: AMPICILLIN-SULBACTAM INJ 3 GM in SODIUM CHLORIDE 0.9% INJ 100 ML IV SCH (05:00)
[2017-04-11] MEDS: FREE WATER G-TUBE SCH ×4 (06:00→22:43)
[2017-04-11] MEDS: POTASSIUM PHOSPHATE/SODIUM PHOSPHATE 250 MG TAB PO SCH ×3 (06:00→22:28)
[2017-04-11] MEDS: METOCLOPRAMIDE HCL 10 MG/2 ML VIAL IV PUSH SCH ×3 (06:04→20:19)
[2017-04-11] MEDS: MIDODRINE 5 MG TAB PO SCH ×3 (06:04→20:19)
[2017-04-11] MEDS: HEPARIN SODIUM - SQ 10,000 UNITS/ML VIAL SQ SCH ×3 (06:10→20:19)
[2017-04-11] MEDS: CHLORHEXIDINE 0.12% (ORAL KIT) 15 ML CUP MT SCH ×2 (08:00→20:00)
[2017-04-11] MEDS: SODIUM CHLORIDE 0.9% FLUSH 10 ML FLUSH IVF SCH (09:00)
[2017-04-11] MEDS: SODIUM CHLORIDE 0.9% FLUSH 10 ML FLUSH IV FLUSH SCH ×2 (09:00→20:19)
[2017-04-11] MEDS ORDERED: OLANZapine ODT 5 MG TAB PO SCH (09:00)
[2017-04-11] MEDS: RIFAXIMIN 550 MG TAB PO SCH ×2 (09:09→20:19)
[2017-04-11] MEDS: LACTULOSE SYRUP 20 GM/30 ML CUP PO SCH ×2 (09:09→21:00)
[2017-04-11] MEDS: DOCUSATE SODIUM 100 MG/10 ML UDC PO SCH ×2 (09:09→21:00)
[2017-04-11] MEDS: THIAMINE HCL 100 MG TAB PO SCH (09:09)
[2017-04-11] MEDS: MUPIROCIN 2% OINT 1 APPLIC/GM SYR EACH NARE SCH ×2 (09:09→21:00)
[2017-04-11] MEDS: LACTOBACILLUS ACIDOPHILUS TAB PO SCH ×3 (09:09→17:50)
[2017-04-11] MEDS: PANTOPRAZOLE SODIUM 40 MG VIAL IV SCH (09:10)
[2017-04-11] MEDS: ARTIFICIAL TEARS OPTH SOLN 15 ML BTL EACH EYE SCH ×3 (09:10→17:49)
[2017-04-11] MEDS: HYDROCORTISONE SOD SUCCINATE 100 MG VIAL IV PUSH SCH (09:10)
[2017-04-11] MEDS: NYSTATIN 100,000 U/GM PWD 15 GM BTL TOPICAL SCH ×2 (09:11→21:00)
--- NOTE | 2017-04-11 14:44 | HHI.CCPN ---
Subjective Remarks/Hospital Course This is a 61-year-old male with a past history of alcohol abuse and a prior admission in 2015 for severe life-threatening hyponatremia at that time with a serum sodium of 98. He presents today with what he states is a 13 day history of worsening fatigue and weakness. He is very altered and is very difficult to understand the patient. What I can understand from him, is that at some point during these 13 days he has fallen and hit his face. Otherwise he states he lays on the couch, and has not gotten not much. He states he drinks 1 beer in the morning, and 1 beer in the afternoon. He does endorse taking some Xanax to help him sleep. He denies other drug use. He denies chest pain, shortness of breath, fever, chills, nausea, vomiting, abdominal pain. It is very difficult to get him to answer anymore questions about his medical history. His speech is very slurred and he is trying to talk about how he misses his daughter. Emergency department he was found to have a serum sodium of 99, a bilirubin of 8.9, lactate of 9.8, ammonia of 60, CK of 7000, elevated troponin of 4.9 with a normal MB ratio, creatinine 1.5, serum bicarbonate of 13. His white count is 12 , platelets 112. INR 1.9. His MELD calculates at 26. 4/2: Sodium level rapidly corrected overnight, likely secondary to appropriate correction of severe life-threatening dehydration. NS fluids changed to 1/2NS and correction slowed down significantly. sodium up to 130 this AM. CK downtrending. however, patient remains severely hypotensive requiring Levophed to maintain a map > 65 mmHg. This AM, serum K 1.6 (confirmed). started replacement with 200meq KCl and recheck K. 03/04: persists in vasoplegic distributive shock. afebrile. no evidence of infection. wbc downtrending. persists with severe life-threatening electrolyte derangements. passed swallow eval for nectar thick liquids. sodium stable at 131. ck downtrending. 03/05: persists in distributive shock. echo yesterday with EF 30%, globally decreased function. milrinone added yesterday with improvement in vasopressor requirement. still with multiple electrolyte abnormalities despite very aggressive replacement. very poor appetite. sodium stable at 131, which appears to be around baseline for him, looking back at prior records. also became agitated and delirious yesterday, likely secondary to etoh withdraw. started on Ativan and Librium. 03/06: electrolyte derangements persist. placed on continuous NaPhos infusion x 24h due to severe life-threatening hypophosphatemia. serial K, phos checks. weaning off levophed, milrinone persists. still poor appetite. sodium jumped from 132 to 139, but no significant mental status change, and we did not increase sodium load. 03/07: still requiring high electrolyte replacement. milrinone weaned to 0.375 mcg /kg/min overnight. still doing well with that. delirium persists. 03/08 Remains on milrinone. Electrolyte improving. Remains very lethargic, intermittently follows commands 03/09: Continues to be lethargic but wakes up follows some commands. Remains on milrinone will DC today. T max 100.1, urine output adequate sodium is 143 03/10: More awake alert, ate 50% of break fast. Will DC Dobhoff. Discontinue arterial and central lines. Delirium also improved, remains weak 03/11: doing much better this morning. no complaints. still with poor appetite. electrolytes improved. 03/20: We consulted for respiratory failure. Patient was last seen in room 1415 CMP receiving oral cares and became acutely hypoxic saturations 82% with coarse breath sounds. Halicat called. Patient was placed on a Venturi mask 50 % with desaturations to the mid 90s. He received Solu-Medrol 20 mg IV 1, Lasix 40 mg IV 1 and was transferred IM [facility] 521. Hemodynamically stable. Poor mentation 03/25: Reconsulted due to respiratory failure. Patient with gurgling/ transmitted upper airway sounds. Respiration the 50s. Decision made to orotracheally intubate. Noted to have been febrile with increased O2 course over the past 48 hours. 03/26: Afebrile. Requiring Nimbex drip for ventilator synchrony. Decreased urine output noted. Hemoglobin decreased likely dilutional. Tolerating tube feeding. Electrolytes been replaced. 03/27: Tmax 100.9. Currently 97.2. +6 L past 24 hours. Hemoglobin 8 transfuse overnight. Potassium 3. We'll discontinue Nimbex drip for vent synchrony today. 03/28: Afebrile. Negative fluid balance past 24 hours. Hemoglobin currently 9. Potassium 3.0. Currently on sedation vacation positive gag and otherwise unresponsive. 03/29: Tmax 103. Currently afebrile. Not tolerating tube feeds. Remains on Kiran-Synephrine. Did not tolerate sedation vacation back on Versed at 5 mg an hour fentanyl drip at 100 mcg an hour. One bowel movement. 03/30 Tube feeds remain on hold. On neosynephrine 40 mcg/min, RN states she has been weaning. Having BMs. On Versed 8 mg/hr and fentanyl 100 mcg/hr. 03/31 Off versed. Remains on fentanyl 100 mcg/hr. Having hiccups. Still on neosynephrine 40 mcg/min. Tolerating trickle feeds. Had 2 bowel movements 04/01: no meaningful change. still requires fentanyl for sedation. still on low- dose vasopressors. 04/02: no changes. still on levo @ 7 mcg/min. unable to wean off fentanyl due to tachycardia and tachypnea. 04/03: Off all sedation. On low-dose norepinephrine. Essentially unresponsive on the ventilator. Plan for likely withdrawal of care tomorrow 04/04: Off all sedation. Off all vasopressors. According to overnight RN was following commands. Will open eyes but not following commands this AM. 04/05 No events overnight. Afebrile On no sedation. 04/06: Resting comfortably in bed. Eyes are open. Moving head back and forth continuously. Weakly following commands with his upper and lower extremities. 04/07: Low-grade temperatures overnight. 99.8. Eyes are open. Moving back and forth. Positive BM. Continues to be following commands. 04/08 Patient remains intubated on no sedation awake and follows commands. Tmax 100.8 04/09 Patient remains intubated, tolerated CPAP all day and had good responses in UO with Bumex yesterday. Afebrile. 04/10: Tmax 99.1. Went back on set rate ventilation yesterday. Will attempt PSV trials throughout the day with goal to attempt extubation tomorrow. Subjective: 04/11: Tmax 100.2. Currently 100.1. Did not tolerate weaning parameters with NIF -9 and unacceptable RSBI. Patient is arousable and follows commands eyes open Objective Vital Signs Date Time Temp Pulse Resp B/P Pulse Ox O2 Delivery O2 Flow Rate FiO2 04/11/17 10:00 104 04/11/17 08:00 35 04/11/17 07:47 94 04/11/17 06:00 18 106/73 04/11/17 04:00 100.1 Intake and Output 04/10/17 04/10/17 04/11/17 08:00 16:00 00:00 Intake Total 740 ml 887 ml 960 ml Output Total 275 ml 850 ml 950 ml Balance 465 ml 37 ml 10 ml Result Diagram: 04/10/17 0443 04/10/17 0443 Other Results Microbiology Date/Time Procedure Status Source Growth 04/08/17 15:00 Gram Stain - Final Complete Sputum Endotracheal 04/08/17 15:00 Sputum Culture - Final Complete Sputum Endotracheal MODERATE GROWTH NORMAL RESPIRATORY BERNARD 04/08/17 10:12 Aerobic Blood Culture - Preliminary Resulted Blood Peripheral NO GROWTH IN 3 DAYS 04/08/17 10:12 Anaerobic Blood Culture - Preliminary Resulted Blood Peripheral NO GROWTH IN 3 DAYS Imaging Last Impressions Chest X-Ray 04/08/17 0600 Signed Impressions: Service Date/Time: Saturday, April 08, 2017 05:10 - CONCLUSION: 1. Endotracheal tube and weighted feeding tube. 2. Bilateral pulmonary infiltrates. Some improvement from the prior study. Cheo Barrera Jr., MD Abdomen X-Ray 04/08/17 0000 Signed Impressions: Service Date/Time: Saturday, April 08, 2017 23:55 - CONCLUSION: Dobbhoff tube coiled in the stomach. Cheo Barrera Jr., MD Head Magnetic Resonance Angiography 03/28/17 0000 Signed Impressions: Service Date/Time: March 17:22 - CONCLUSION: Unremarkable examination. Bety Castillo MD Brain MRI 03/28/17 0000 Signed Impressions: Service Date/Time: March 17:22 - CONCLUSION: 1. 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 Small subacute ischemic bilateral thalamic infarcts. 2. There has been no significant change when compared to the prior exam. Yinka Harman MD Lower Extremity Ultrasound 03/25/17 0000 Signed Impressions: Service Date/Time: Saturday, March 25, 2017 22:17 - CONCLUSION: No evidence of DVT. Víctor Rosas MD CT Angiography 03/21/17 0000 Signed Impressions: Service Date/Time: March 00:33 - CONCLUSION: No evidence of pulmonary embolism is identified. Mild atelectasis left lung base. Fluid or phlegm within the trachea. Milo Muhammad MD Abdomen Ultrasound 03/20/17 0000 Signed Impressions: Service Date/Time: Monday, March 20, 2017 11:38 - CONCLUSION: 1. Hepatosplenomegaly without focal lesion. 2. Probable sludge within the lumen of the gallbladder. No intrahepatic duct. Cheo Martínez MD Shoulder X-Ray 03/02/17 1404 Signed Impressions: Service Date/Time: Thursday, March 02, 2017 15:18 - CONCLUSION: No evidence of recent bony injury. Deformity of the lateral left clavicle suggests old healed trauma. Cheo Martínez MD Maxillofacial CT 03/02/17 1342 Signed Impressions: Service Date/Time: Thursday, March 02, 2017 14:52 - CONCLUSION: Negative CT of the facial bones. Cheo Martínez MD Head CT 03/02/17 1342 Signed Impressions: Service Date/Time: Thursday, March 02, 2017 14:52 - CONCLUSION: 1. Prominent scalp swelling left frontal and parietal region. No skull fracture seen. 2. Intracranial contents are intact without acute finding. Cheo Martínez MD Chest CT 03/02/17 1342 Signed Impressions: Service Date/Time: Thursday, March 02, 2017 15:04 - CONCLUSION: 1. Abnormal appearance of the lateral left clavicle suggesting a combination of acute and chronic bony injury. Fracture lucencies without bridging callus is seen the region of the coracoid process. 2. The lungs are clear. No evidence of pneumothorax. 3. Moderate size hiatus hernia. Cheo Martínez MD Cervical Spine CT 03/02/17 1342 Signed Impressions: Service Date/Time: Thursday, March 02, 2017 14:52 - CONCLUSION: Negative CT cervical spine. Cheo Martínez MD Abdomen/Pelvis CT 03/02/17 1342 Signed Impressions: Service Date/Time: Thursday, March 02, 2017 15:04 - CONCLUSION: Moderate size hiatus hernia. Scattered small sigmoid diverticula. Otherwise negative exam. Cheo Martínez MD Objective Remarks GENERAL: 61-year-old chronically ill appearing male, currently critically ill, orotracheally intubated. HEENT: Healing abrasion left side scalp. TIMOTHY. Scleral icterus. Very poor dentition. NECK: Trachea Midline RESP: Coarse breath sounds bilaterally. Few wheezes. CARDIOVASCULAR: Tachycardia, RR. ABDOMEN: Slightly distended but soft, bowel sounds present, tolerating tube feeds. : Johns in place with conrad urine output. mild/moderate scrotal edema. MUSCULOSKELETAL: No obvious deformity. 1+ edema all extremities NEUROLOGICAL: + gag and cough. Opens eyes and weakly following commands with upper and lower extremities. Date of Insertion: Mar 25, 2017 A/P Assessment and Plan Neuro/Psych: Osmotic demyelination syndrome Acute toxic metabolic encephalopathy secondary to hypercarbic respiratory failure Alcohol dependence History of EtOH induced seizure withdrawal Chronic benzodiazepine use Bilateral thalamic CVA Off all sedation oxycodone 5 mg every 4 hours as needed for pain Zyprexa 5 mg daily to be discontinued today MRI 03/21 - T1/T2 prolonged with sparing of this central appears final fibers. 2 small spots in the posterior central spinal tract consistent with Osmotic demyelination syndrome. ODS most likely from correction of Na, with underlying alcoholism. MRI brain 03/28 revealed subacute bilateral thalamic lacunar infarcts, CPM. CT head 03/05 revealed no acute intracranial findings Continue thiamine Seen by neurology/Dr. Mazariegos. Respiratory: Acute hypoxemic hypercapnic respiratory failure PRVC 18/550/1.2//35 Currently a PSV trial Ventilator bundle Bronchodilator therapy every 4 hours and as needed SBT daily as pablo. Cardiovascular: Chronic Systolic heart failure Echocardiogram 03/04 revealed EF 35-40%. Mild mR. Left atrium dilated. JANE 33 mmHg TSH within normal limits 0.8 Wean off hydrocortisone currently 50 every day 2 then discontinue Continue midodrine 10 mg 3 times Monitor HR and BP keep MAP>65mmHg Renal: Acute Kidney Injury- Rhabdomyolysis- resolved ODS-see neuro Monitor renal function, I/O's, electrolytes replacement per protocol. Diurese with Bumex 1mg x1, Will need K replacement today. GI: EtOH cirrhosis Hyperammonemia Hiatal hernia Sigmoid diverticulosis History of umbilical hernia repair Hypoalbuminemia Continue tub feeds Jevity 1.5 with goal rate 60ml/hr On Xifaxan 550 twice a day/lactulose 30 twice a day. LFT is elevated. Ultrasound liver-hepatosplenomegaly. Sludge in gallbladder On IV Protonix Reglan 10 every 8 hours/prokinetic agent. Heme: Leukocytosis Macrocytic anemia Monitor CBC. No indications for transfusion of blood proximally postop B12 1452, Folate 15.2. TSH 0.8. ID: Likely aspiration pneumonia Escherichia coli UTI 03/11 - completed therapy Acinetobacter pneumonia Pertinent cultures 04/08 - blood cultures 2 - no growth - sputum - no growth 04/05 - urine -C GLABRATA AND C. ALBICANS 03/29 - blood cultures 2 - NGTD 03/25 - sputum --Acinetobacter. 03/25 - urine - NGTD 03/25 - blood cultures 2 -no growth 03/22 - urine - no growth 03/22 - blood cultures 2 - negative 03/20 - blood cultures 2 - no growth 03/11 - urine - Escherichia coli 03/02 - blood cultures 2 - no growth Pancultured 04/08 ( Blood cx x 2 sets, sputum, UA with cx if needed) Followed by Dr. Lisa/ID. today 04/11 discontinued Unasyn per ID. Off Flagyl po 03/24 . s Endocrine: Hyperglycemia of critical illness History of hypothyroidism SSI with Accu-Cheks every 4 hours to maintain euglycemia MSK: History of old left clavicle fracture PT/OT evaluate and treat Access Peripheral IV. Central line if indicated Prophylaxis: GI - Protonix DVT - SCD/heparin subcutaneous Palliative care is following code status changed to full code per daughter's request. Tamanna Sandhu, daughter/ HCP: from [facility] [phone] now confirmed transferred to [facility] in [place] facility ) Code status -full code Level 2 Larry Ruby MD April 11, 2017 14:44 Larry Ruby MD April 11, 2017 14:44
[2017-04-11] MEDS ORDERED: POTASSIUM CHLORIDE 20 MEQ PWD PACKET PO ONE (14:45)
--- NOTE | 2017-04-11 15:09 | HHI.HCPN ---
Reason for visit a. To assist with evaluation and management of symptoms including: dyspnea, pain. b. To assist medical decision maker(s) with: better understanding of current medical conditions; weighing benefits/burdens of medical treatment options; making medical treatment decisions. . (Melissa Mcclure) Subjective/Interval History Palliative care follow-up for further clarifications of goals of care and to assist with communication. Patient seen in ICU, he remains intubated on mechanical ventilation. Patient tolerated CPAP trial yesterday, plan for medical extubation today. Patient failed SBT today, did not tolerate weaning parameters. Patient remains off sedation, week. Following some simple commands with all 4 extremities. Very weak hand grasp. Patient mouthing his name when asked. No new laboratory or imaging today. Max temperature today 101.1, slightly tachycardic with heart rate in the low 100s. Stable hemodynamically. Telephone conversation with Guillermo Roberts who is the boyfriend of patient's daughter Amie. He notify me that Hammad Olena was not granted. As per Guillermo, Hammad is expected to be released from [facility] in August or September 2017. Guillermo has been visiting patient frequently and giving updates to Amie. Case discussed with Dr. Ruby. Telephone conversation with patient's daughter Amie. He remains in custody of [facility]. Medical update provided. Reviewed patient's clinical course to include development of osmotic demyelination syndrome to include symptoms such as difficulty with respiration, speech, swallowing, paralysis/ paraplegia, movement disorders, lethargy, confusion and even coma. Reviewed with daughter that his symptoms are often irreversible and that patient remains a very high risk for further complications, continue decline and . Reviewed that patient failed SBT today and was unable to medically extubate. Reviewed that patient is currently on day #17 of endotracheal intubation and mechanical ventilation. Reviewed that one more trial would be given at medical extubation but if patient fails he will likely require tracheostomy and PEG tube placement. Reviewed prior conversation with palliative care in which Amie decline tracheostomy and PEG tube placement. Reviewed likely trajectory of illness to include bedbound, likely ventilator dependent, and continue physical decline/complications. Patient's daughter verbalized understanding but is now electing to "keep patient alive as long as possible" and is electing tracheostomy and PEG tube placement if patient is unable to medically extubate. Amie electing to continue full CODE STATUS. Updated Dr. Ruby with daughter's request. . Family/friend interactions See interval note. . (Melissa Mcclure) Advance Directives Living Will: Never completed Health Care Surrogate: Never completed Durable Power of [place]: Never completed (Melissa Mcclure) Advance Directive Specifics Health Care Surrogate(s): Margot Nolen is, per [place] statues bam care decision proxy. Now in [facility] (#[phone]). Facilitation of conversations with Tamanna can be arranged through booking (#[phone]) in emergency situations to address goals of care.Ask for a Hudson on staff as shifts rotate throughout the week. (Melissa Mcclure) Objective Vital Signs Date Time Temp Pulse Resp B/P Pulse Ox O2 Delivery O2 Flow Rate FiO2 04/11/17 10:00 104 04/11/17 08:00 95 04/11/17 08:00 35 04/11/17 07:47 94 35 04/11/17 07:47 35 04/11/17 06:00 97 04/11/17 06:00 97 18 106/73 94 04/11/17 05:01 94 35 04/11/17 05:00 103 04/11/17 05:00 103 18 109/76 93 04/11/17 04:00 35 04/11/17 04:00 100.1 103 18 107/70 95 04/11/17 04:00 103 04/11/17 03:00 96 04/11/17 03:00 96 18 109/71 96 04/11/17 02:00 99 04/11/17 02:00 99 20 104/70 96 04/11/17 01:53 96 35 04/11/17 01:00 103 04/11/17 01:00 103 18 106/73 95 04/11/17 00:00 100.2 107 18 104/74 95 04/11/17 00:00 35 04/11/17 00:00 107 04/10/17 23:00 113 19 96/63 92 04/10/17 22:00 35 04/10/17 22:00 35 04/10/17 22:00 95 35 04/10/17 22:00 103 04/10/17 22:00 103 27 103/64 95 04/10/17 21:00 112 33 101/65 94 04/10/17 20:38 97 35 04/10/17 20:00 101 04/10/17 20:00 35 04/10/17 20:00 101.1 101 26 110/69 95 04/10/17 18:00 95 04/10/17 16:00 100 24 112/69 96 04/10/17 16:00 100 04/10/17 16:00 35 04/10/17 15:24 95 35 04/10/17 15:00 99.8 106 25 108/69 95 04/10/17 15:00 106 Intake & Output 04/11/17 04/11/17 07:00 19:00 Intake Total 1711 ml Output Total 1250 ml Balance 461 ml IV Total 325 ml Tube Feeding 866 ml Tube Irrigant 120 ml Other 400 ml Output Urine Total 1250 ml # Bowel Movements 1 Physical Exam CONSTITUTIONAL/GENERAL: This is an thin, pale appearing patient, in no apparent distress. Intubated on mechanical ventilation. TUBES/LINES/DRAINS: ETT, Dobbhoff, Johns, rectal tube, SCDs. Bilateral heel boots. SKIN: Ecchymosis bilateral UEs. Erythema/rash to forehead and bilateral cheeks. Skin temperature appropriate. CARDIOVASCULAR: Tachycardic and heart rate in the low 110s. No murmurs, gallops , or rubs. Peripheral pulses symmetric. RESPIRATORY/CHEST: Symmetric, unlabored respirations. Coarse rhonchi anteriorly. Remains intubated on mechanical ventilation, ongoing CPAP trials. GASTROINTESTINAL: Abdomen round, soft, non-tender. Positive bowel sounds. Ongoing tube feedings via NG tube. GENITOURINARY: Without palpable bladder distension. Johns catheter in place. Erythema groin area. MUSCULOSKELETAL: Generalized edema noted. No mottling or clubbing. Very weak hand grasp bilaterally left more than right. Moving all extremities to command. NEUROLOGICAL: Awake, alert. Eyes open, tracking. Mouthing some words and following simple commands today. PSYCHIATRIC: Difficult to assess secondary to intubation/mechanical ventilation. Appears calm. . (Melissa Mcclure) Diagnostic Tests Laboratory Laboratory Tests Test 04/09/17 04/10/17 04/10/17 05:10 04:43 15:30 White Blood Count 15.5 TH/MM3 11.2 TH/MM3 (4.0-11.0) (4.0-11.0) Red Blood Count 2.88 MIL/MM3 2.57 MIL/MM3 (4.50-5.90) (4.50-5.90) Hemoglobin 9.5 GM/DL 8.7 GM/DL (13.0-17.0) (13.0-17.0) Hematocrit 28.9 % 25.8 % (39.0-51.0) (39.0-51.0) Mean Corpuscular Volume 100.1 FL 100.4 FL (80.0-100.0) (80.0-100.0) Mean Corpuscular Hemoglobin 32.8 PG 33.9 PG (27.0-34.0) (27.0-34.0) Mean Corpuscular Hemoglobin 32.8 % 33.8 % Concent (32.0-36.0) (32.0-36.0) Red Cell Distribution Width 16.1 % 16.3 % (11.6-17.2) (11.6-17.2) Platelet Count 299 TH/MM3 241 TH/MM3 (150-450) (150-450) Mean Platelet Volume 7.5 FL 7.9 FL (7.0-11.0) (7.0-11.0) Neutrophils (%) (Auto) 85.6 % 87.1 % (16.0-70.0) (16.0-70.0) Lymphocytes (%) (Auto) 8.9 % 7.2 % (9.0-44.0) (9.0-44.0) Monocytes (%) (Auto) 5.1 % (0.0-8.0) 4.8 % (0.0-8.0) Eosinophils (%) (Auto) 0.1 % (0.0-4.0) 0.1 % (0.0-4.0) Basophils (%) (Auto) 0.3 % (0.0-2.0) 0.8 % (0.0-2.0) Neutrophils # (Auto) 13.3 TH/MM3 9.7 TH/MM3 (1.8-7.7) (1.8-7.7) Lymphocytes # (Auto) 1.4 TH/MM3 0.8 TH/MM3 (1.0-4.8) (1.0-4.8) Monocytes # (Auto) 0.8 TH/MM3 0.5 TH/MM3 (0-0.9) (0-0.9) Eosinophils # (Auto) 0.0 TH/MM3 0.0 TH/MM3 (0-0.4) (0-0.4) Basophils # (Auto) 0.0 TH/MM3 0.1 TH/MM3 (0-0.2) (0-0.2) CBC Comment DIFF FINAL DIFF FINAL Differential Comment Sodium Level 145 MEQ/L 146 MEQ/L (136-145) (136-145) Potassium Level 3.2 MEQ/L 3.4 MEQ/L (3.5-5.1) (3.5-5.1) Chloride Level 109 MEQ/L 109 MEQ/L (98-107) (98-107) Carbon Dioxide Level 25.2 MEQ/L 25.1 MEQ/L (21.0-32.0) (21.0-32.0) Anion Gap 11 MEQ/L (5-15) 12 MEQ/L (5-15) Blood Urea Nitrogen 22 MG/DL (7-18) 23 MG/DL (7-18) Creatinine 0.65 MG/DL 0.59 MG/DL (0.60-1.30) (0.60-1.30) Estimat Glomerular Filtration 126 ML/MIN 141 ML/MIN Rate (>89) (>89) Random Glucose 136 MG/DL 174 MG/DL (74-106) (74-106) Calcium Level 8.1 MG/DL 8.0 MG/DL (8.5-10.1) (8.5-10.1) Phosphorus Level 2.6 MG/DL 2.2 MG/DL (2.5-4.9) (2.5-4.9) Magnesium Level 1.9 MG/DL 1.8 MG/DL (1.5-2.5) (1.5-2.5) Total Bilirubin 2.0 MG/DL 1.8 MG/DL (0.2-1.0) (0.2-1.0) Aspartate Amino Transf 158 U/L (15-37) 119 U/L (15-37) (AST/SGOT) Alanine Aminotransferase 129 U/L (12-78) 108 U/L (12-78) (ALT/SGPT) Alkaline Phosphatase 462 U/L 386 U/L (45-117) (45-117) Total Protein 5.8 GM/DL 5.5 GM/DL (6.4-8.2) (6.4-8.2) Albumin 1.7 GM/DL 1.6 GM/DL (3.4-5.0) (3.4-5.0) Stool C. difficile Toxin (PCR) NEGATIVE (NEGATIVE) Stl C. difficile Toxin PRESUMPTIVE Epiderm 027 NEGATIVE (NEGATIVE) (Melissa Mcclure) Result Diagram: 04/10/1744204/10/173 Microbiology Microbiology Date/Time Procedure Status Source Growth 04/08/17 15:00 Gram Stain - Final Complete Sputum Endotracheal 04/08/17 15:00 Sputum Culture - Final Complete Sputum Endotracheal MODERATE GROWTH NORMAL RESPIRATORY BERNARD Imaging Last Impressions Chest X-Ray 04/08/17 0600 Signed Impressions: Service Date/Time: Saturday, April 08, 2017 05:10 - CONCLUSION: 1. Endotracheal tube and weighted feeding tube. 2. Bilateral pulmonary infiltrates. Some improvement from the prior study. Cheo Barrera Jr., MD Abdomen X-Ray 04/08/17 0000 Signed Impressions: Service Date/Time: Saturday, April 08, 2017 23:55 - CONCLUSION: Dobbhoff tube coiled in the stomach. Cheo Barrera Jr., MD Head Magnetic Resonance Angiography 03/28/17 0000 Signed Impressions: Service Date/Time: March 17:22 - CONCLUSION: Unremarkable examination. KShiv Castillo MD Brain MRI 03/28/17 0000 Signed Impressions: Service Date/Time: March 17:22 - CONCLUSION: 1. 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 Small subacute ischemic bilateral thalamic infarcts. 2. There has been no significant change when compared to the prior exam. Yinka Harman MD Lower Extremity Ultrasound 03/25/17 0000 Signed Impressions: Service Date/Time: Saturday, March 25, 2017 22:17 - CONCLUSION: No evidence of DVT. Víctor Rosas MD CT Angiography 03/21/17 0000 Signed Impressions: Service Date/Time: March 00:33 - CONCLUSION: No evidence of pulmonary embolism is identified. Mild atelectasis left lung base. Fluid or phlegm within the trachea. Milo Muhammad MD Abdomen Ultrasound 03/20/17 0000 Signed Impressions: Service Date/Time: Monday, March 20, 2017 11:38 - CONCLUSION: 1. Hepatosplenomegaly without focal lesion. 2. Probable sludge within the lumen of the gallbladder. No intrahepatic duct. Cheo Martínez MD Shoulder X-Ray 03/02/17 1404 Signed Impressions: Service Date/Time: Thursday, March 02, 2017 15:18 - CONCLUSION: No evidence of recent bony injury. Deformity of the lateral left clavicle suggests old healed trauma. Cheo Martínez MD Maxillofacial CT 03/02/17 1342 Signed Impressions: Service Date/Time: Thursday, March 02, 2017 14:52 - CONCLUSION: Negative CT of the facial bones. Cheo Martínez MD Head CT 03/02/17 1342 Signed Impressions: Service Date/Time: Thursday, March 02, 2017 14:52 - CONCLUSION: 1. Prominent scalp swelling left frontal and parietal region. No skull fracture seen. 2. Intracranial contents are intact without acute finding. Cheo Martínez MD Chest CT 03/02/17 1342 Signed Impressions: Service Date/Time: Thursday, March 02, 2017 15:04 - CONCLUSION: 1. Abnormal appearance of the lateral left clavicle suggesting a combination of acute and chronic bony injury. Fracture lucencies without bridging callus is seen the region of the coracoid process. 2. The lungs are clear. No evidence of pneumothorax. 3. Moderate size hiatus hernia. Cheo Martínez MD Cervical Spine CT 03/02/17 1342 Signed Impressions: Service Date/Time: Thursday, March 02, 2017 14:52 - CONCLUSION: Negative CT cervical spine. Cheo Martínez MD Abdomen/Pelvis CT 03/02/17 1342 Signed Impressions: Service Date/Time: Thursday, March 02, 2017 15:04 - CONCLUSION: Moderate size hiatus hernia. Scattered small sigmoid diverticula. Otherwise negative exam. Cheo Martínez MD Procedures * 03/25/17 -Endotracheal intubation (Melissa Mcclure) Assessment and Plan Disease Oriented Problem List: (1) Sepsis due to Acinetobacter Comment: Sepsis syndrome secondary to pneumonia -MDR Acinetobacter (2) Acute hypoxemic respiratory failure Comment: Remains intubated on mechanical ventilation. 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 However, he is highly prone to further aspiration and increasing shortness of breath) Comment: Secondary to respiratory failure, pneumonia. Remains intubated on mechanical ventilation. (2) Pain 0-10 Scale: Unable to quantify Comment: Patient has had prolonged bedrest, and is now unable to reposition himself effectively. (3) Debility 0-10 Scale: Unable to quantify Comment: Secondary to acute illness and prolonged hospitalization. Pertinent Non-Medical Issues Psychosocial: 61-year-old with long-standing history of alcohol use and abuse, 1 daughter who is incarcerated in the [facility] long-term. Spiritual: No reported. Legal: Daughter Tamanna is, per [facility] care decision proxy. She is currently incarcerated at [facility]. They are permitting her to participate in decisions at this time. Ethical issues impacting care: As stated above. . Important Contacts * Tamanna Sandhu, daughter/ HCP: Margot Nolen is, per [facility] care decision proxy. . Now in [facility] (#[phone]). Facilitation of conversations with Tamanna can be arranged through booking (#[phone]) in emergency situations to address goals of care.Ask for a Hudson on staff as shifts rotate throughout the week. * Guillermo Roberts, daughter friend: [phone] (cell)- has frequent contact w Amie - has been very helpful Prognosis Prognosis: Poor prognosis for meaningful recovery. . Code Status: Full Code Plan * CODE STATUS: Full code. Code was change on 04/09/17 as per daughter's request. Benefits, risks and limitations of CPR, reintubation and mechanical ventilation were discussed with daughter given patient's clinical condition and multiple comorbidities. * HEALTHCARE DECISION-MAKING: Patient incapacitated secondary to clinical condition, unclear if he will regain capacity. Medical decision-making capacity will be reassessed once patient is extubated. Patient is , according to [place] statutes, health care proxy decision making falls to his only daughter, Tamanna. [facility] in [facility] (#[phone]). Facilitation of conversations with Tamanna can be arranged through booking (#) in emergency situations to address goals of care. Ask for a Lucila on staff as shifts rotate throughout the week. * GOALS OF CARE: Daughter electing to pursue aggressive care to include tracheostomy and PEG tube placement if patient is unable to medically extubate. 04/11/17: Telephone conversation with patient's daughter Amie. She remains in custody of [facility]. Medical update provided. Reviewed patient' s clinical course to include development of osmotic demyelination syndrome to include symptoms such as difficulty with respiration, speech, swallowing, paralysis/paraplegia, movement disorders, lethargy, confusion and even coma. Reviewed with daughter that this symptoms are often irreversible and that patient remains a very high risk for further complications, continue decline and . Reviewed that patient failed SBT today and was unable to medically extubate. Reviewed that patient is currently on day #17 of endotracheal intubation and mechanical ventilation. Reviewed that one more trial would be given at medical extubation but if patient fails he will likely require tracheostomy and PEG tube placement. Reviewed prior conversation with palliative care in which Amie decline tracheostomy and PEG tube placement. Discussed continuation of aggressive care versus comfort-directed care/allow natural . Reviewed likely trajectory of illness to include bedbound status , likely ventilator dependency, and continue physical decline/complications. Patient's daughter verbalized understanding but is wishing to "keep patient alive as long as possible" and is electing tracheostomy and PEG tube placement if patient is unable to medically extubate. Amie electing to continue full CODE STATUS. Updated Dr. Ruby with daughter's request. * SYMPTOMS: == Dyspnea, secondary to respiratory failure. Remains intubated on mechanical ventilation. Failed SBT. Ongoing attempts at medical extubation. Will likely require tracheostomy. == Debility. Secondary to burden of disease , acute illness and prolonged hospitalization. == Pain, secondary to prolonged hospitalization and bedrest. Oxycodone available as needed. * Case has been discussed with Dr. Ruby and bedside RN. * Palliative care contact information has been provided to patient's daughter during prior telephone conversation. * Palliative care will continue to follow further clarifications of goals of care as patient's clinical course evolves. . (Melissa Mcclure) Time Spent Total Floor Time (mins): 48 (Total time to include review medical records, physical exam, telephone conversation with patient's daughter and case discussion with Dr. Ruby and bedside RN.) >50% Counseling/Coord of Care: Yes (Melissa Mcclure) Attestation To help prompt me to consider important information that might be impacting today's encounter and assessment, information from prior notes written by myself or my colleagues may have been "brought forward" into today's note. My signature on this note, however, is an attestation that I personally performed the exam, history, and/or decision-making noted today, and, unless otherwise indicated, the interactions with patient, family, and staff as well as the review of records all occurred today. I also attest that the listed assessment and stated plan reflect my best clinical judgment today based on the combination of historical information, prior notes, and today's exam/ interactions. When time spent is documented, it refers only to time spent today by the signer, or if indicated, combined time spent today by collaborating physician/nurse practitioner. (Melissa Mcclure) Collaborating MD Comments . Chart reviewed. Case discussed with palliative care TELEX OPERATOR. I have reviewed above TELEX OPERATOR note and I concur. . (Greg Salas MD) Melissa Mcclure April 11, 2017 15:09 Greg Salas MD April 30, 2017 12:31
[2017-04-11] MEDS: MAGNESIUM SULFATE 1 GM PREMIX 100 ML IV SCH ×2 (15:28→17:49)
[2017-04-11] MEDS: POTASSIUM CHLOR 20 MEQ PREMIX 100 ML IV PRN ×2 (22:30→23:40)
[2017-04-12] VITALS (22 sets, daily range): BP systolic 96–125; BP diastolic 61–83; PULSE 99–122; RESP 18–25; TEMP 99–99.5; O2SAT 91–100
[2017-04-12] MEDS: RESP: ALBUTEROL 2.5 MG/IPRATROPIUM 0.5 MG NEB (SCH) NEB ×6 (00:04→20:15)
[2017-04-12] MEDS: ACETAMINOPHEN 325 MG TAB PO PRN (00:41)
[2017-04-12] MEDS: INSULIN NovoLIN REGULAR SUPPLEMENTAL SCALE SQ SCH ×5 (04:00→20:00)
[2017-04-12] MEDS: FREE WATER G-TUBE SCH ×3 (05:15→18:30)
[2017-04-12] MEDS: METOCLOPRAMIDE HCL 10 MG/2 ML VIAL IV PUSH SCH ×3 (05:15→20:47)
[2017-04-12] MEDS: MIDODRINE 5 MG TAB PO SCH ×3 (05:15→20:47)
[2017-04-12] MEDS: HEPARIN SODIUM - SQ 10,000 UNITS/ML VIAL SQ SCH ×3 (05:15→20:47)
[2017-04-12] MEDS: POTASSIUM PHOSPHATE/SODIUM PHOSPHATE 250 MG TAB PO SCH ×3 (05:16→18:30)
[2017-04-12 08:32] LABS: AUTOMATED NEUTROPHIL # 12.4 TH/MM3 (1.8-7.7); BASOPHIL # 0.1 TH/MM3 (0-0.2); BASOPHIL % 0.8 % (0.0-2.0); EOSINOPHIL # 0.2 TH/MM3 (0-0.4); EOSINOPHIL % 1.4 % (0.0-4.0); HEMO FLAGS DIFF FINAL; LYMPH % 11.3 % (9.0-44.0); LYMPHOCYTE # 1.7 TH/MM3 (1.0-4.8); MEAN CORPUSCULAR HEMOGLOBIN 32.8 PG (27.0-34.0); MEAN CORPUSCULAR HGB CONC 32.5 % (32.0-36.0); MONO % 5.7 % (0.0-8.0); NEUT % 80.8 % (16.0-70.0); PLATELET COUNT 172 TH/MM3 (150-450); RED BLOOD COUNT 2.57 MIL/MM3 (4.50-5.90); RED CELL DISTRIBUTION WIDTH 16.6 % (11.6-17.2); WHITE BLOOD COUNT 15.3 TH/MM3 (4.0-11.0)
[2017-04-12] MEDS: NYSTATIN 100,000 U/GM PWD 15 GM BTL TOPICAL SCH ×2 (09:00→20:48)
[2017-04-12 09:06] LABS: ALKALINE PHOSPHATASE 398 U/L (45-117); ALT (GPT) 99 U/L (12-78); ANION GAP 9 MEQ/L (5-15); AST (GOT) 127 U/L (15-37); BICARBONATE 26.9 MEQ/L (21.0-32.0); BLOOD UREA NITROGEN 24 MG/DL (7-18); CHLORIDE 110 MEQ/L (98-107); GLOMERULAR FILTRATION RATE 149 ML/MIN (>89); POTASSIUM 3.4 MEQ/L (3.5-5.1); SODIUM (NA) 146 MEQ/L (136-145); TOTAL BILIRUBIN ADULT 1.6 MG/DL (0.2-1.0)
[2017-04-12] MEDS: CHLORHEXIDINE 0.12% (ORAL KIT) 15 ML CUP MT SCH ×2 (09:45→20:00)
[2017-04-12] MEDS: PANTOPRAZOLE SODIUM 40 MG VIAL IV SCH (09:47)
[2017-04-12] MEDS: HYDROCORTISONE SOD SUCCINATE 100 MG VIAL IV PUSH SCH (09:47)
[2017-04-12] MEDS: ARTIFICIAL TEARS OPTH SOLN 15 ML BTL EACH EYE SCH ×3 (09:47→18:30)
[2017-04-12] MEDS: THIAMINE HCL 100 MG TAB PO SCH (09:48)
[2017-04-12] MEDS: LACTOBACILLUS ACIDOPHILUS TAB PO SCH ×3 (09:48→18:30)
[2017-04-12] MEDS: RIFAXIMIN 550 MG TAB PO SCH ×2 (09:48→20:47)
[2017-04-12] MEDS: LACTULOSE SYRUP 20 GM/30 ML CUP PO SCH ×2 (09:48→20:48)
[2017-04-12] MEDS: DOCUSATE SODIUM 100 MG/10 ML UDC PO SCH ×2 (09:48→20:48)
[2017-04-12] MEDS: MUPIROCIN 2% OINT 1 APPLIC/GM SYR EACH NARE SCH ×2 (09:48→20:47)
[2017-04-12] MEDS: SODIUM CHLORIDE 0.9% FLUSH 10 ML FLUSH IVF SCH (09:49)
[2017-04-12] MEDS: SODIUM CHLORIDE 0.9% FLUSH 10 ML FLUSH IV FLUSH SCH ×2 (09:49→20:48)
--- NOTE | 2017-04-12 11:02 | HHI.CCPN ---
Subjective Remarks/Hospital Course This is a 61-year-old male with a past history of alcohol abuse and a prior admission in 2015 for severe life-threatening hyponatremia at that time with a serum sodium of 98. He presents today with what he states is a 13 day history of worsening fatigue and weakness. He is very altered and is very difficult to understand the patient. What I can understand from him, is that at some point during these 13 days he has fallen and hit his face. Otherwise he states he lays on the couch, and has not gotten not much. He states he drinks 1 beer in the morning, and 1 beer in the afternoon. He does endorse taking some Xanax to help him sleep. He denies other drug use. He denies chest pain, shortness of breath, fever, chills, nausea, vomiting, abdominal pain. It is very difficult to get him to answer anymore questions about his medical history. His speech is very slurred and he is trying to talk about how he misses his daughter. Emergency department he was found to have a serum sodium of 99, a bilirubin of 8.9, lactate of 9.8, ammonia of 60, CK of 7000, elevated troponin of 4.9 with a normal MB ratio, creatinine 1.5, serum bicarbonate of 13. His white count is 12 , platelets 112. INR 1.9. His MELD calculates at 26. 4/2: Sodium level rapidly corrected overnight, likely secondary to appropriate correction of severe life-threatening dehydration. NS fluids changed to 1/2NS and correction slowed down significantly. sodium up to 130 this AM. CK downtrending. however, patient remains severely hypotensive requiring Levophed to maintain a map > 65 mmHg. This AM, serum K 1.6 (confirmed). started replacement with 200meq KCl and recheck K. 03/04: persists in vasoplegic distributive shock. afebrile. no evidence of infection. wbc downtrending. persists with severe life-threatening electrolyte derangements. passed swallow eval for nectar thick liquids. sodium stable at 131. ck downtrending. 03/05: persists in distributive shock. echo yesterday with EF 30%, globally decreased function. milrinone added yesterday with improvement in vasopressor requirement. still with multiple electrolyte abnormalities despite very aggressive replacement. very poor appetite. sodium stable at 131, which appears to be around baseline for him, looking back at prior records. also became agitated and delirious yesterday, likely secondary to etoh withdraw. started on Ativan and Librium. 03/06: electrolyte derangements persist. placed on continuous NaPhos infusion x 24h due to severe life-threatening hypophosphatemia. serial K, phos checks. weaning off levophed, milrinone persists. still poor appetite. sodium jumped from 132 to 139, but no significant mental status change, and we did not increase sodium load. 03/07: still requiring high electrolyte replacement. milrinone weaned to 0.375 mcg /kg/min overnight. still doing well with that. delirium persists. 03/08 Remains on milrinone. Electrolyte improving. Remains very lethargic, intermittently follows commands 03/09: Continues to be lethargic but wakes up follows some commands. Remains on milrinone will DC today. T max 100.1, urine output adequate sodium is 143 03/10: More awake alert, ate 50% of break fast. Will DC Dobhoff. Discontinue arterial and central lines. Delirium also improved, remains weak 03/11: doing much better this morning. no complaints. still with poor appetite. electrolytes improved. 03/20: We consulted for respiratory failure. Patient was last seen in room 1415 CMP receiving oral cares and became acutely hypoxic saturations 82% with coarse breath sounds. Halicat called. Patient was placed on a Venturi mask 50 % with desaturations to the mid 90s. He received Solu-Medrol 20 mg IV 1, Lasix 40 mg IV 1 and was transferred IM [facility] 521. Hemodynamically stable. Poor mentation 03/25: Reconsulted due to respiratory failure. Patient with gurgling/ transmitted upper airway sounds. Respiration the 50s. Decision made to orotracheally intubate. Noted to have been febrile with increased O2 course over the past 48 hours. 03/26: Afebrile. Requiring Nimbex drip for ventilator synchrony. Decreased urine output noted. Hemoglobin decreased likely dilutional. Tolerating tube feeding. Electrolytes been replaced. 03/27: Tmax 100.9. Currently 97.2. +6 L past 24 hours. Hemoglobin 8 transfuse overnight. Potassium 3. We'll discontinue Nimbex drip for vent synchrony today. 03/28: Afebrile. Negative fluid balance past 24 hours. Hemoglobin currently 9. Potassium 3.0. Currently on sedation vacation positive gag and otherwise unresponsive. 03/29: Tmax 103. Currently afebrile. Not tolerating tube feeds. Remains on Kiran-Synephrine. Did not tolerate sedation vacation back on Versed at 5 mg an hour fentanyl drip at 100 mcg an hour. One bowel movement. 03/30 Tube feeds remain on hold. On neosynephrine 40 mcg/min, RN states she has been weaning. Having BMs. On Versed 8 mg/hr and fentanyl 100 mcg/hr. 03/31 Off versed. Remains on fentanyl 100 mcg/hr. Having hiccups. Still on neosynephrine 40 mcg/min. Tolerating trickle feeds. Had 2 bowel movements 04/01: no meaningful change. still requires fentanyl for sedation. still on low- dose vasopressors. 04/02: no changes. still on levo @ 7 mcg/min. unable to wean off fentanyl due to tachycardia and tachypnea. 04/03: Off all sedation. On low-dose norepinephrine. Essentially unresponsive on the ventilator. Plan for likely withdrawal of care tomorrow 04/04: Off all sedation. Off all vasopressors. According to overnight RN was following commands. Will open eyes but not following commands this AM. 04/05 No events overnight. Afebrile On no sedation. 04/06: Resting comfortably in bed. Eyes are open. Moving head back and forth continuously. Weakly following commands with his upper and lower extremities. 04/07: Low-grade temperatures overnight. 99.8. Eyes are open. Moving back and forth. Positive BM. Continues to be following commands. 04/08 Patient remains intubated on no sedation awake and follows commands. Tmax 100.8 04/09 Patient remains intubated, tolerated CPAP all day and had good responses in UO with Bumex yesterday. Afebrile. 04/10: Tmax 99.1. Went back on set rate ventilation yesterday. Will attempt PSV trials throughout the day with goal to attempt extubation tomorrow. 04/11: Tmax 100.2. Currently 100.1. Did not tolerate weaning parameters with NIF -9 and unacceptable RSBI. Patient is arousable and follows commands eyes open Subjective: 04/12: Omayra care reports tonic-clonic seizure activity this AM. Heart rate in the 140s during episode with violent shaking. On examination, patient's eyes are open and at baseline except currently not following commands. Objective Vital Signs Date Time Temp Pulse Resp B/P Pulse Ox O2 Delivery O2 Flow Rate FiO2 04/12/17 08:51 35 04/12/17 07:50 96 04/12/17 06:00 105 04/12/17 04:00 18 102/66 04/11/17 16:00 99.9 Intake and Output 04/11/17 04/11/17 04/12/17 08:00 16:00 00:00 Intake Total 751 ml 569 ml 310 ml Output Total 300 ml 695 ml 200 ml Balance 451 ml -126 ml 110 ml Result Diagram: 04/12/17 0804/12/17 08 Other Results Microbiology Date/Time Procedure Status Source Growth 04/08/17 15:00 Gram Stain - Final Complete Sputum Endotracheal 04/08/17 15:00 Sputum Culture - Final Complete Sputum Endotracheal MODERATE GROWTH NORMAL RESPIRATORY BERNARD 04/08/17 10:12 Aerobic Blood Culture - Preliminary Resulted Blood Peripheral NO GROWTH IN 3 DAYS 04/08/17 10:12 Anaerobic Blood Culture - Preliminary Resulted Blood Peripheral NO GROWTH IN 3 DAYS Imaging Last Impressions Chest X-Ray 04/08/17 0600 Signed Impressions: Service Date/Time: Saturday, April 08, 2017 05:10 - CONCLUSION: 1. Endotracheal tube and weighted feeding tube. 2. Bilateral pulmonary infiltrates. Some improvement from the prior study. Cheo Barrera Jr., MD Abdomen X-Ray 04/08/17 0000 Signed Impressions: Service Date/Time: Saturday, April 08, 2017 23:55 - CONCLUSION: Dobbhoff tube coiled in the stomach. Cheo Barrera Jr., MD Head Magnetic Resonance Angiography 03/28/17 0000 Signed Impressions: Service Date/Time: March 17:22 - CONCLUSION: Unremarkable examination. Bety Castillo MD Brain MRI 03/28/17 0000 Signed Impressions: Service Date/Time: March 17:22 - CONCLUSION: 1. 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 Small subacute ischemic bilateral thalamic infarcts. 2. There has been no significant change when compared to the prior exam. Yinka Harman MD Lower Extremity Ultrasound 4/24/17 0000 Signed Impressions: Service Date/Time: Saturday, March 25, 2017 22:17 - CONCLUSION: No evidence of DVT. Víctor Rosas MD CT Angiography 03/21/17 0000 Signed Impressions: Service Date/Time: March 00:33 - CONCLUSION: No evidence of pulmonary embolism is identified. Mild atelectasis left lung base. Fluid or phlegm within the trachea. Milo Muhammad MD Abdomen Ultrasound 03/20/17 0000 Signed Impressions: Service Date/Time: Monday, March 20, 2017 11:38 - CONCLUSION: 1. Hepatosplenomegaly without focal lesion. 2. Probable sludge within the lumen of the gallbladder. No intrahepatic duct. Cheo Martínez MD Shoulder X-Ray 03/02/17 1404 Signed Impressions: Service Date/Time: Thursday, March 02, 2017 15:18 - CONCLUSION: No evidence of recent bony injury. Deformity of the lateral left clavicle suggests old healed trauma. Cheo Martínez MD Maxillofacial CT 03/02/17 1342 Signed Impressions: Service Date/Time: Thursday, March 02, 2017 14:52 - CONCLUSION: Negative CT of the facial bones. Cheo Martínez MD Head CT 03/02/171341 Signed Impressions: Service Date/Time: Thursday, March 02, 2017 14:52 - CONCLUSION: 1. Prominent scalp swelling left frontal and parietal region. No skull fracture seen. 2. Intracranial contents are intact without acute finding. Cheo Martínez MD Chest CT 03/02/17 134 Signed Impressions: Service Date/Time: Thursday, March 02, 2017 15:04 - CONCLUSION: 1. Abnormal appearance of the lateral left clavicle suggesting a combination of acute and chronic bony injury. Fracture lucencies without bridging callus is seen the region of the coracoid process. 2. The lungs are clear. No evidence of pneumothorax. 3. Moderate size hiatus hernia. Cheo Martínez MD Cervical Spine CT 03/02/172 Signed Impressions: Service Date/Time: Thursday, March 02, 2017 14:52 - CONCLUSION: Negative CT cervical spine. Cheo Martínez MD Abdomen/Pelvis CT 03/02/17 134 Signed Impressions: Service Date/Time: Thursday, March 02, 2017 15:04 - CONCLUSION: Moderate size hiatus hernia. Scattered small sigmoid diverticula. Otherwise negative exam. Cheo Martínez MD Objective Remarks GENERAL: 61-year-old chronically ill appearing male, currently critically ill, orotracheally intubated. HEENT: Healing abrasion left side scalp. TIMOTHY. Scleral icterus. Very poor dentition. NECK: Trachea Midline RESP: Coarse breath sounds bilaterally. Few wheezes. CARDIOVASCULAR: Tachycardia, RR. ABDOMEN: Slightly distended but soft, bowel sounds present, tolerating tube feeds. : Johns in place with conrad urine output. mild/moderate scrotal edema. MUSCULOSKELETAL: No obvious deformity. 1+ edema all extremities NEUROLOGICAL: + gag and cough. Opens eyes and weakly following commands with upper and lower extremities. Date of Insertion: Mar 25, 2017 A/P Assessment and Plan Neuro/Psych: Osmotic demyelination syndrome Acute toxic metabolic encephalopathy secondary to hypercarbic respiratory failure Alcohol dependence History of EtOH induced seizure withdrawal Chronic benzodiazepine use Bilateral thalamic CVA Off all sedation oxycodone 5 mg every 4 hours as needed for pain Zyprexa discontinued MRI 03/21 - T1/T2 prolonged with sparing of this central appears final fibers. 2 small spots in the posterior central spinal tract consistent with Osmotic demyelination syndrome. ODS most likely from correction of Na, with underlying alcoholism. MRI brain 03/28 revealed subacute bilateral thalamic lacunar infarcts, CPM. CT head 03/05 revealed no acute intracranial findings Continue thiamine Seen by neurology/Dr. Mzaariegos. Check CT head today with altered mental status/partial seizures. EEG ordered Bone with Keppra 1 g followed by 500 mg IV twice a day Respiratory: Acute hypoxemic hypercapnic respiratory failure PRVC 18/550/1.2/ Currently a PSV trial Ventilator bundle Bronchodilator therapy every 4 hours and as needed SBT daily as pablo. Cardiovascular: Chronic Systolic heart failure Echocardiogram 03/04 revealed EF 35-40%. Mild mR. Left atrium dilated. JANE 33 mmHg TSH within normal limits 0.8 Wean off hydrocortisone currently 50 every day 2 then discontinue Continue midodrine 10 mg 3 times Monitor HR and BP keep MAP>65mmHg Renal/FEN: Acute Kidney Injury- Rhabdomyolysis- resolved ODS-see neuro Hypokalemia Hypernatremia Monitor renal function, I/O's, electrolytes replacement per protocol. 40 mEq potassium 1 now. Recheck in a.m. GI: EtOH cirrhosis Hyperammonemia Hiatal hernia Sigmoid diverticulosis History of umbilical hernia repair Hypoalbuminemia Continue tub feeds Jevity 1.5 with goal rate 60ml/hr On Xifaxan 550 twice a day/lactulose 30 twice a day. LFT is elevated. Ultrasound liver-hepatosplenomegaly. Sludge in gallbladder On IV Protonix Reglan 10 every 8 hours/prokinetic agent. Heme: Leukocytosis Macrocytic anemia Monitor CBC. No indications for transfusion of blood proximally postop B12 1452, Folate 15.2. TSH 0.8. ID: Likely aspiration pneumonia Escherichia coli UTI 03/11 - completed therapy Acinetobacter pneumonia Pertinent cultures 04/08 - blood cultures 2 - no growth - sputum - no growth 04/05 - urine -C GLABRATA AND C. ALBICANS 03/29 - blood cultures 2 - NGTD 03/25 - sputum --Acinetobacter. 03/25 - urine - NGTD 03/25 - blood cultures 2 -no growth 03/22 - urine - no growth 03/22 - blood cultures 2 - negative 03/20 - blood cultures 2 - no growth 03/11 - urine - Escherichia coli 03/02 - blood cultures 2 - no growth Pancultured 04/08 ( Blood cx x 2 sets, sputum, UA with cx if needed) Followed by Dr. Lisa/ID. today 04/11 discontinued Unasyn per ID. Off Flagyl po 03/24 . s Endocrine: Hyperglycemia of critical illness History of hypothyroidism SSI with Accu-Cheks every 4 hours to maintain euglycemia MSK: History of old left clavicle fracture PT/OT evaluate and treat Access Peripheral IV. Central line if indicated Prophylaxis: GI - Protonix DVT - SCD/heparin subcutaneous Palliative care is following code status changed to full code per daughter's request. Tamanna Sandhu, daughter/ HCP: from [facility] [phone] now confirmed transferred to [facility] in [place] facility ([phone]) Code status -full code Level 2 We'll consult general surgery for tracheostomy and GI for PEG tube placement. Full code Larry Ruby MD April 12, 2017 11:02
[2017-04-12] MEDS ORDERED: POTASSIUM CHLORIDE 20 MEQ PWD PACKET PEG ONE (12:00)
[2017-04-12] MEDS ORDERED: levETIRAcetam 1000 MG INJ 100 ML IV ONE (12:00)
[2017-04-12] MEDS ORDERED: LORazepam 2 MG/ML VIAL IV PUSH ONE (12:00)
[2017-04-12] MEDS ORDERED: MIDAZOLAM 100 MG/ML INJ 100 ML IV SCH (14:30)
--- NOTE | 2017-04-12 15:00 | HHI.IDPN ---
Subjective Subjective Remarks Notes reviewed D/W RN Did not get extubated Has not been doing well with CPAP Had seizure today Daughter now wants full code Trach and PEG being discussed Not on pressors Repeat UA normal Repeat sputum with normal derrick Antibiotics None Lines PIV Past Medical History ETOHism Allergies: Coded Allergies: PEANUTS (Unverified Allergy, Severe, 03/02/17) *MDRO Multi-Drug Resistant Organism (Verified Adverse Reaction, Unknown, ) MRSA PCR screen POSITIVE - 03/02/17 MDR Acinetobacter (sputum) - 03/25/17 Objective . Vital Signs Date Time Temp Pulse Resp B/P Pulse Ox O2 Delivery O2 Flow Rate FiO2 04/12/17 11:18 95 35 04/12/17 10:00 111 04/12/17 08:51 35 04/12/17 08:00 103 04/12/17 08:00 35 04/12/17 08:00 99.5 99 18 111/72 98 04/12/17 07:50 96 35 04/12/17 06:00 105 04/12/17 04:00 106 18 102/66 92 04/12/17 04:00 35 04/12/17 04:00 106 04/12/17 03:57 92 35 04/12/17 02:00 101 04/12/17 01:41 18 04/12/17 00:05 94 35 04/12/17 00:00 104 04/12/17 00:00 35 04/12/17 00:00 104 19 97/62 94 04/11/17 22:00 111 04/11/17 21:36 92 35 04/11/17 20:00 115 04/11/17 20:00 35 04/11/17 20:00 111 19 111/74 04/11/17 18:00 93 04/11/17 16:36 94 35 04/11/17 16:00 35 04/11/17 16:00 99.9 109 18 102/64 94 04/11/17 16:00 95 04/11/17 04/11/17 04/12/17 15:00 23:00 07:00 Intake Total 569 ml 310 ml 246 ml Output Total 695 ml 200 ml 450 ml Balance -126 ml 110 ml -204 ml Intake Oral 0 ml 0 ml IV Total 319 ml 132 ml 105 ml Tube Feeding 250 ml 178 ml 141 ml Output Urine Total 620 ml 200 ml 150 ml Stool Total 75 ml 300 ml . Laboratory Tests Test 04/12/17 08:05 White Blood Count 15.3 TH/MM3 Red Blood Count 2.57 MIL/MM3 Hemoglobin 8.4 GM/DL Hematocrit 26.0 % Mean Corpuscular Volume 101.0 FL Mean Corpuscular Hemoglobin 32.8 PG Mean Corpuscular Hemoglobin 32.5 % Concent Red Cell Distribution Width 16.6 % Platelet Count 172 TH/MM3 Mean Platelet Volume 8.2 FL Neutrophils (%) (Auto) 80.8 % Lymphocytes (%) (Auto) 11.3 % Monocytes (%) (Auto) 5.7 % Eosinophils (%) (Auto) 1.4 % Basophils (%) (Auto) 0.8 % Neutrophils # (Auto) 12.4 TH/MM3 Lymphocytes # (Auto) 1.7 TH/MM3 Monocytes # (Auto) 0.9 TH/MM3 Eosinophils # (Auto) 0.2 TH/MM3 Basophils # (Auto) 0.1 TH/MM3 CBC Comment DIFF FINAL Differential Comment Laboratory Tests Test 04/12/17 08:05 Sodium Level 146 MEQ/L Potassium Level 3.4 MEQ/L Chloride Level 110 MEQ/L Carbon Dioxide Level 26.9 MEQ/L Anion Gap 9 MEQ/L Blood Urea Nitrogen 24 MG/DL Creatinine 0.56 MG/DL Estimat Glomerular Filtration 149 ML/MIN Rate Random Glucose 133 MG/DL Calcium Level 7.8 MG/DL Phosphorus Level 2.4 MG/DL Magnesium Level 2.0 MG/DL Total Bilirubin 1.6 MG/DL Aspartate Amino Transf 127 U/L (AST/SGOT) Alanine Aminotransferase 99 U/L (ALT/SGPT) Alkaline Phosphatase 398 U/L Total Protein 5.4 GM/DL Albumin 1.8 GM/DL Imaging Chest X-Ray 04/08/17599 Signed Impressions: Service Date/Time: Saturday, April 08, 2017 05:10 - CONCLUSION: 1. Endotracheal tube and weighted feeding tube. 2. Bilateral pulmonary infiltrates. Some improvement from the prior study. Cheo Barrera Jr., MD Chest X-Ray 03/27/17599 Signed Impressions: Service Date/Time: Monday, March 27, 2017 02:33 - CONCLUSION: No significant interval change. Víctor Rosas MD Chest X-Ray 4/25/17 0600 Signed Impressions: Service Date/Time: Sunday, March 26, 2017 05:35 - CONCLUSION: Improving bilateral pulmonary infiltrates Víctor Rosas MD Chest X-Ray 03/25/17 1004 Signed Impressions: Service Date/Time: Saturday, March 25, 2017 10:03 - CONCLUSION: 1. Worsening bibasilar consolidation. 2. Endotracheal tube with tip at the thoracic inlet and should be advanced at least 3-4 cm. 3. Adequate placement of left jugular central line without pneumothorax. Logan Morgan MD Chest X-Ray 03/26/17 0600 Signed Impressions: Service Date/Time: Sunday, March 26, 2017 05:35 - CONCLUSION: Improving bilateral pulmonary infiltrates Víctor Rosas MD Lower Extremity Ultrasound 03/25/17 0000 Signed Impressions: Service Date/Time: Saturday, March 25, 2017 22:17 - CONCLUSION: No evidence of DVT. Víctor Rosas MD CT Angiography 03/21/17 0000 Signed Impressions: Service Date/Time: March 00:33 - CONCLUSION: No evidence of pulmonary embolism is identified. Mild atelectasis left lung base. Fluid or phlegm within the trachea. Milo Muhammad MD Brain MRI 03/20/17 0000 Signed Impressions: Service Date/Time: Monday, March 20, 2017 16:11 - CONCLUSION: Abnormal appearance to the ruthy with some extension into the cortical spinal tracts of the posterior thalamus was bilaterally. 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 Cheo Martínez MD Abdomen X-Ray 03/20/17 0000 Signed Impressions: Service Date/Time: Monday, March 20, 2017 18:12 - CONCLUSION: Tip of the Dobbhoff tube projecting towards the pylorus. Cheo Barrera Jr., MD Abdomen Ultrasound 03/20/17 0000 Signed Impressions: Service Date/Time: Monday, March 20, 2017 11:38 - CONCLUSION: 1. Hepatosplenomegaly without focal lesion. 2. Probable sludge within the lumen of the gallbladder. No intrahepatic duct. Cheo Martínez MD Shoulder X-Ray 03/02/17 1404 Signed Impressions: Service Date/Time: Thursday, March 02, 2017 15:18 - CONCLUSION: No evidence of recent bony injury. Deformity of the lateral left clavicle suggests old healed trauma. Cheo Martínez MD Maxillofacial CT 03/02/17 1342 Signed Impressions: Service Date/Time: Thursday, March 02, 2017 14:52 - CONCLUSION: Negative CT of the facial bones. Cheo Martínez MD Head CT 03/02/17 1342 Signed Impressions: Service Date/Time: Thursday, March 02, 2017 14:52 - CONCLUSION: 1. Prominent scalp swelling left frontal and parietal region. No skull fracture seen. 2. Intracranial contents are intact without acute finding. Cheo Martínez MD Chest CT 03/02/17 1342 Signed Impressions: Service Date/Time: Thursday, March 02, 2017 15:04 - CONCLUSION: 1. Abnormal appearance of the lateral left clavicle suggesting a combination of acute and chronic bony injury. Fracture lucencies without bridging callus is seen the region of the coracoid process. 2. The lungs are clear. No evidence of pneumothorax. 3. Moderate size hiatus hernia. Cheo Martínez MD Cervical Spine CT 03/02/17 1342 Signed Impressions: Service Date/Time: Thursday, March 02, 2017 14:52 - CONCLUSION: Negative CT cervical spine. Cheo Martínez MD Abdomen/Pelvis CT 03/02/17 134 Signed Impressions: Service Date/Time: Thursday, March 02, 2017 15:04 - CONCLUSION: Moderate size hiatus hernia. Scattered small sigmoid diverticula. Otherwise negative exam. Cheo Martínez MD Chest X-Ray 03/25/17 1004 Signed Impressions: Service Date/Time: Saturday, March 25, 2017 10:03 - CONCLUSION: 1. Worsening bibasilar consolidation. 2. Endotracheal tube with tip at the thoracic inlet and should be advanced at least 3-4 cm. 3. Adequate placement of left jugular central line without pneumothorax. Logan Morgan MD Chest X-Ray 03/23/17 0000 Signed Impressions: Service Date/Time: Thursday, March 23, 2017 14:27 - CONCLUSION: 1. Feeding tube in place with what appears to be a loop in the hypopharynx. 2. Bibasilar areas of consolidation or atelectasis. Casper Vargas MD Physical Exam GENERAL: Sedated on the vent SKIN: Warm and dry. No generalized rash. HEENT: Pupils equal round and reactive. Orally intubated. Poor dentition. A lot of oral secretions NECK: Supple, nontender, no meningeal signs. Previous line site ok CARDIOVASCULAR: Regular rate and rhythm without murmurs, gallops, or rubs. RESPIRATORY: Coarse rhonchi GASTROINTESTINAL: Abdomen mildly distended, bowel sounds are present and normoactive, no reaction to palpation MUSCULOSKELETAL: Lower extremities without clubbing, cyanosis. Developing some pedal edema. No joint effusion. NEUROLOGICAL: Awake and focusing : Johns cath in place, urine looks better LINE: PIV no evidence of infection Assessment & Plan Remarks IMPRESSION Sepsis syndrome, due to PNA - on vent - has MDR Acinetobacter MDR Acinetobacter PNA - S/P Rx Recurrent fevers Septic shock, BP better Known ETOH abuse Encephalopathy - sepsis, ETOH, CPM Respiratory failure, not tolerating CPAP Diarrhea, C diff negative Nuvia in UC, repeat UA normal, without Rx Seizures RECOMMENDATION Repeat C/S Follow C/S Follow temps Monitor progress If temps again, start Unasyn and IV vanco and Cefepime D/W RN Dr Lopez coverng this weekend Umm Lisa MD April 12, 2017 15:00
--- NOTE | 2017-04-12 15:10 | PD.CONS ---
HPI History of Present Illness This is a 61 year old male who presented to the ER on 03/02/17 for worsening fatigue and weakness with altered mental status. He was admitted to the medical intensive care unit for further evaluation and treatment and remains intubated on the mechanical ventilator being treated for osmotic demyelination syndrome, acute toxic metabolic encephalopathy, alcohol dependence with alcoholic liver cirrhosis and a hx of ETOH induced seizure withdrawal and chronic benzodiazepine use, bilateral thalamic CVA, chronic systolic heart failure, acute renal failure with electrolyte abnormalities, rhabdomyolysis, hyperammonemia, hypoalbuminemia, leukocytosis, probable aspiration pneumonia, and UTI. He has a dobhoff tube and is getting Jevity 1.5 is at goal rate of 60 ml/hr, as recommended by the type copy examiner. GS has been consulted for tracheostomy and GI has been consulted for PEG tube placement. Tamanna Sandhu is listed as next of kin to discuss procedure, risks, benefits. [facility] to call [facility], [facility] name and number and will have the patient's daughter call me when she is able. ( Maggie Mederos) PFSH Past Medical History End-stage liver disease, Hypertension Alcoholism Chronic benzodiazepine use Past Surgical History Unable to obtain (Maggie Mederos) Coded Allergies: PEANUTS (Unverified Allergy, Severe, 03/02/17) *MDRO Multi-Drug Resistant Organism (Verified Adverse Reaction, Unknown, ) MRSA PCR screen POSITIVE - 03/02/17 MDR Acinetobacter (sputum) - 03/25/17 Medications Allergies Coded Allergies Type Severity Reaction Last Updated Verified PEANUTS Allergy Severe 03/02/17 No *MDRO Multi-Drug Resistant Organism Adverse Reaction Unknown 03/28/17 Yes Active Scripts Medications Dose Route/Sig Days Date Category Xanax (Alprazolam) 2 Mg Tab 2 Mg PO DAILY PRN 03/02/17 Reported Omeprazole 20 Mg Tab 20 Mg PO DAILY IN THE PM 03/02/17 Reported Family History Unable to obtain Social History ETOH abuse Unable to obtain (Maggie Mederos) Review of Systems ROS Unable to obtain (Maggie Mederos) GI Exam Vitals I&O Vital Signs Date Time Temp Pulse Resp B/P Pulse Ox O2 Delivery O2 Flow Rate FiO2 04/12/17 11:18 95 35 04/12/17 10:00 111 04/12/17 08:51 35 04/12/17 08:00 103 04/12/17 08:00 35 04/12/17 08:00 99.5 99 18 111/72 98 04/12/17 07:50 96 35 04/12/17 06:00 105 04/12/17 04:00 106 18 102/66 92 04/12/17 04:00 35 04/12/17 04:00 106 04/12/17 03:57 92 35 04/12/17 02:00 101 04/12/17 01:41 18 04/12/17 00:05 94 35 04/12/17 00:00 104 04/12/17 00:00 35 04/12/17 00:00 104 19 97/62 94 04/11/17 22:00 111 04/11/17 21:36 92 35 04/11/17 20:00 115 04/11/17 20:00 35 04/11/17 20:00 111 19 111/74 04/11/17 18:00 93 04/11/17 16:36 94 35 04/11/17 16:00 35 04/11/17 16:00 99.9 109 18 102/64 94 04/11/17 16:00 95 I/O 04/11/17 04/11/17 04/11/17 04/12/17 04/12/17 04/12/17 07:00 15:00 23:00 07:00 15:00 23:00 Intake Total 751 ml 569 ml 310 ml 246 ml Output Total 300 ml 695 ml 200 ml 450 ml Balance 451 ml -126 ml 110 ml -204 ml Intake Oral 0 ml 0 ml IV Total 115 ml 319 ml 132 ml 105 ml Tube Feeding 436 ml 250 ml 178 ml 141 ml Other 200 ml Output Urine Total 300 ml 620 ml 200 ml 150 ml Stool Total 75 ml 300 ml Imaging Last Impressions Chest X-Ray 04/08/17 0600 Signed Impressions: Service Date/Time: Saturday, April 08, 2017 05:10 - CONCLUSION: 1. Endotracheal tube and weighted feeding tube. 2. Bilateral pulmonary infiltrates. Some improvement from the prior study. Cheo Barrera Jr., MD Abdomen X-Ray 04/08/17 0000 Signed Impressions: Service Date/Time: Saturday, April 08, 2017 23:55 - CONCLUSION: Dobbhoff tube coiled in the stomach. Cheo Barrera Jr., MD Head Magnetic Resonance Angiography 03/28/17 0000 Signed Impressions: Service Date/Time: March 17:22 - CONCLUSION: Unremarkable examination. Bety Castillo MD Brain MRI 03/28/17 0000 Signed Impressions: Service Date/Time: March 17:22 - CONCLUSION: 1. 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 Small subacute ischemic bilateral thalamic infarcts. 2. There has been no significant change when compared to the prior exam. Yinka Harman MD Lower Extremity Ultrasound 03/25/17 0000 Signed Impressions: Service Date/Time: Saturday, March 25, 2017 22:17 - CONCLUSION: No evidence of DVT. Víctor Rosas MD CT Angiography 03/21/17 0000 Signed Impressions: Service Date/Time: March 00:33 - CONCLUSION: No evidence of pulmonary embolism is identified. Mild atelectasis left lung base. Fluid or phlegm within the trachea. Milo Muhammad MD Abdomen Ultrasound 03/20/17 0000 Signed Impressions: Service Date/Time: Monday, March 20, 2017 11:38 - CONCLUSION: 1. Hepatosplenomegaly without focal lesion. 2. Probable sludge within the lumen of the gallbladder. No intrahepatic duct. Cheo Martínez MD Shoulder X-Ray 03/02/17 1404 Signed Impressions: Service Date/Time: Thursday, March 02, 2017 15:18 - CONCLUSION: No evidence of recent bony injury. Deformity of the lateral left clavicle suggests old healed trauma. Cheo Martínez MD Maxillofacial CT 03/02/17 1342 Signed Impressions: Service Date/Time: Thursday, March 02, 2017 14:52 - CONCLUSION: Negative CT of the facial bones. Cheo Martínez MD Head CT 03/02/17 1342 Signed Impressions: Service Date/Time: Thursday, March 02, 2017 14:52 - CONCLUSION: 1. Prominent scalp swelling left frontal and parietal region. No skull fracture seen. 2. Intracranial contents are intact without acute finding. Cheo Martínez MD Chest CT 03/02/17 1342 Signed Impressions: Service Date/Time: Thursday, March 02, 2017 15:04 - CONCLUSION: 1. Abnormal appearance of the lateral left clavicle suggesting a combination of acute and chronic bony injury. Fracture lucencies without bridging callus is seen the region of the coracoid process. 2. The lungs are clear. No evidence of pneumothorax. 3. Moderate size hiatus hernia. Cheo Martínez MD Cervical Spine CT 03/02/17 1342 Signed Impressions: Service Date/Time: Thursday, March 02, 2017 14:52 - CONCLUSION: Negative CT cervical spine. Cheo Martínez MD Abdomen/Pelvis CT 03/02/17 1342 Signed Impressions: Service Date/Time: Thursday, March 02, 2017 15:04 - CONCLUSION: Moderate size hiatus hernia. Scattered small sigmoid diverticula. Otherwise negative exam. Cheo Martínez MD Laboratory Test 04/12/17 08:05 White Blood Count 15.3 TH/MM3 Red Blood Count 2.57 MIL/MM3 Hemoglobin 8.4 GM/DL Hematocrit 26.0 % Mean Corpuscular Volume 101.0 FL Mean Corpuscular Hemoglobin 32.8 PG Mean Corpuscular Hemoglobin 32.5 % Concent Red Cell Distribution Width 16.6 % Platelet Count 172 TH/MM3 Mean Platelet Volume 8.2 FL Neutrophils (%) (Auto) 80.8 % Lymphocytes (%) (Auto) 11.3 % Monocytes (%) (Auto) 5.7 % Eosinophils (%) (Auto) 1.4 % Basophils (%) (Auto) 0.8 % Neutrophils # (Auto) 12.4 TH/MM3 Lymphocytes # (Auto) 1.7 TH/MM3 Monocytes # (Auto) 0.9 TH/MM3 Eosinophils # (Auto) 0.2 TH/MM3 Basophils # (Auto) 0.1 TH/MM3 CBC Comment DIFF FINAL Differential Comment Sodium Level 146 MEQ/L Potassium Level 3.4 MEQ/L Chloride Level 110 MEQ/L Carbon Dioxide Level 26.9 MEQ/L Anion Gap 9 MEQ/L Blood Urea Nitrogen 24 MG/DL Creatinine 0.56 MG/DL Estimat Glomerular Filtration 149 ML/MIN Rate Random Glucose 133 MG/DL Calcium Level 7.8 MG/DL Phosphorus Level 2.4 MG/DL Magnesium Level 2.0 MG/DL Total Bilirubin 1.6 MG/DL Aspartate Amino Transf 127 U/L (AST/SGOT) Alanine Aminotransferase 99 U/L (ALT/SGPT) Alkaline Phosphatase 398 U/L Total Protein 5.4 GM/DL Albumin 1.8 GM/DL Date/Time Procedure Status Source Growth 04/08/17 15:00 Gram Stain - Final Complete Sputum Endotracheal 04/08/17 15:00 Sputum Culture - Final Complete Sputum Endotracheal MODERATE GROWTH NORMAL RESPIRATORY BERNARD 04/08/17 10:12 Aerobic Blood Culture - Preliminary Resulted Blood Peripheral NO GROWTH IN 4 DAYS 04/08/17 10:12 Anaerobic Blood Culture - Preliminary Resulted Blood Peripheral NO GROWTH IN 4 DAYS Physical Examination HEENT: Normocephalic; atraumatic CHEST: Resp. even/unlabored, oett to vent. CARDIAC: RRR ABDOMEN: Soft, mildly distended, bowel sounds are present in all four quadrants. Flexiseal with liquid brown stool. Dobhoff EXTREMITIES: genera edema. CHILDREN'S PROGRAM COORDINATOR: Sedated on vent (Maggie Mederos) Assessment and Plan Plan ASSESSMENT: - Dysphagia, FEN. Pt critically ill in intensive medical unit, requiring prolonged ventilation. GI consulted for PEG. Crook Operator recommends Jevity 1.5 is at goal rate of 60 ml/hr Tamanna Sandhu is listed as next of kin to discuss procedure, risks, benefits. Attempted to call this number, it is booking for [facility]. They took my name and number and will have the patient's daughter call me when she is able. Will tentatively plan for Saturday if we are able to get consents. - Elevated LFTs/Liver cirrhosis. Pt with hx of alcohol abuse. MELD 25. T. Bili 1.6, AST 127, ALT 99, Alk Phosph 398- likely combination of alcohol abuse on underlying cirrhosis, possible some congestive component. - Coagulopathy. PT 17.0, INR 1.5. - Anemia. HH 8.4/26.0. No active bleeding. - Resp. Failure/PNA. Vent per CCM. GS consulted for tracheostomy. 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 thalamic CVA. S/P Neuro eval. Lactulose, Xifaxan. Na 146. - MAXIME with electrolyte abnormalities. Per renal/CCM - Leukocytosis with UTI (S/P Tx), PNA. - CHF, Hx hypothyroidism per CCM PLAN: - Plan for EGD with peg tube placement on Saturday - Obtain consents - NPO after MN Saturday MN - Hold Heparin after MN Saturday - CMP, PT/INR, CBC 04/15/17 at 6am - Ancef i gram chemical instrumentation officer - Crook Operator recommends Jevity 1.5 is at goal rate of 60 ml/hr - Pt seen and examined by Dr. Canales and myself and this note is written on her behalf Daughter Tamanna Sandhu returned call. D/W EGD with PEG tube placement- procedure, risks, benefit. Questions answered, verbalized understanding, she would like to proceed. (Maggie Mederos) Physician Comments seen, examined agree with above (Brigitte Canales MD) Maggie Mederos April 12, 2017 15:09 Brigitte Canales MD April 13, 2017 08:02
--- NOTE | 2017-04-12 16:12 | HHI.HCPN ---
Reason for visit a. To assist with evaluation and management of symptoms including: dyspnea, pain. b. To assist medical decision maker(s) with: better understanding of current medical conditions; weighing benefits/burdens of medical treatment options; making medical treatment decisions. . (Melissa Mcclure) Subjective/Interval History Palliative care follow-up for further clarifications of goals of care and to assist with communication. Patient seen in ICU, he remains intubated on mechanical ventilation. Failed SBT yesterday. Upon entering to patient's room , he was noted shaking vigorously and rolling his eyes. Discussed with bedside RN who reports this is patient's second episode. Heart rate noted during the event in the 140s bpm. Patient's eyes are open, facial twitching noted. Patient is not tracking with eyes or following any commands. Not withdrawing to pain. Dr. Ruby was called at bedside, patient was started on antiepileptic medication. Laboratory today showing WBC 15.3, Hgb 8.4, platelet count 172. Sodium 146, potassium 3.4, BUN/creatinine 24/0.56. Albumin 1.8. Pending brain CT and EEG given new seizure activity. Telephone call to patient's Amie who is in custody is an [facility]. Left return number. Telephone conversation with Guillermo Roberts who is Amie's boyfriend. Medical update provided. Shared concerns regarding new seizure activity and neurological changes. Pending brain CT and EEG. Guillermo to convey this information to Amie and will visit patient over the weekend. Case discussed with Dr. Ruby and bedside RN. . Family/friend interactions See interval note. . (Melissa Mcclure) Advance Directives Living Will: Never completed Health Care Surrogate: Never completed Durable Power of Ice Guard Inspector: Never completed (Melissa Mcclure) Advance Directive Specifics Health Care Surrogate(s): Margot Nolen is, per [place] statues bam care decision proxy. Now in [facility] (#[phone]). Facilitation of conversations with Tamanna can be arranged through booking (#[phone]) in emergency situations to address goals of care.Ask for a Gillespie on staff as shifts rotate throughout the week. Significant change in goals: Full code. Continue aggressive care to include trach and PEG. . (Melissa Mcclure) Objective Vital Signs Date Time Temp Pulse Resp B/P Pulse Ox O2 Delivery O2 Flow Rate FiO2 04/12/17 11:18 95 35 04/12/17 10:00 111 04/12/17 08:51 35 04/12/17 08:00 103 04/12/17 08:00 35 04/12/17 08:00 99.5 99 18 111/72 98 04/12/17 07:50 96 35 04/12/17 06:00 105 04/12/17 04:00 106 18 102/66 92 04/12/17 04:00 35 04/12/17 04:00 106 04/12/17 03:57 92 35 04/12/17 02:00 101 04/12/17 01:41 18 04/12/17 00:05 94 35 04/12/17 00:00 104 04/12/17 00:00 35 04/12/17 00:00 104 19 97/62 94 04/11/17 22:00 111 04/11/17 21:36 92 35 04/11/17 20:00 115 04/11/17 20:00 35 04/11/17 20:00 111 19 111/74 04/11/17 18:00 93 04/11/17 16:36 94 35 04/11/17 16:00 35 04/11/17 16:00 99.9 109 18 102/64 94 04/11/17 16:00 95 Intake & Output 04/12/17 04/12/17 07:00 19:00 Intake Total 556 ml Output Total 650 ml Balance -94 ml Intake Oral 0 ml IV Total 237 ml Tube Feeding 319 ml Output Urine Total 350 ml Stool Total 300 ml Physical Exam CONSTITUTIONAL/GENERAL: This is an thin, pale appearing patient, in no apparent distress. Intubated on mechanical ventilation. TUBES/LINES/DRAINS: ETT, Dobbhoff, Johns, rectal tube, SCDs. Bilateral heel boots. SKIN: Ecchymosis bilateral UEs. Erythema/rash to forehead and bilateral cheeks. Skin temperature appropriate. CARDIOVASCULAR: Tachycardic and heart rate in the low 140s during seizure episode. No murmurs, gallops, or rubs. Peripheral pulses symmetric. RESPIRATORY/CHEST: Symmetric, unlabored respirations. Coarse rhonchi anteriorly. Remains intubated on mechanical ventilation. GASTROINTESTINAL: Abdomen round, soft, non-tender. Positive bowel sounds. Ongoing tube feedings via NG tube. GENITOURINARY: Without palpable bladder distension. Johns catheter in place. Erythema groin area. MUSCULOSKELETAL: Generalized edema noted. No mottling or clubbing. NEUROLOGICAL: Eyes open. Not tracking. Not following any commands. Not withdrawing to pain. PSYCHIATRIC: Unable to assess secondary to clinical condition. . (Melissa Mcclure) Diagnostic Tests Laboratory Laboratory Tests Test 04/10/17 04/10/17 04/12/17 04:43 15:30 08:05 White Blood Count 11.2 TH/MM3 15.3 TH/MM3 (4.0-11.0) (4.0-11.0) Red Blood Count 2.57 MIL/MM3 2.57 MIL/MM3 (4.50-5.90) (4.50-5.90) Hemoglobin 8.7 GM/DL 8.4 GM/DL (13.0-17.0) (13.0-17.0) Hematocrit 25.8 % 26.0 % (39.0-51.0) (39.0-51.0) Mean Corpuscular Volume 100.4 FL 101.0 FL (80.0-100.0) (80.0-100.0) Mean Corpuscular Hemoglobin 33.9 PG 32.8 PG (27.0-34.0) (27.0-34.0) Mean Corpuscular Hemoglobin 33.8 % 32.5 % Concent (32.0-36.0) (32.0-36.0) Red Cell Distribution Width 16.3 % 16.6 % (11.6-17.2) (11.6-17.2) Platelet Count 241 TH/MM3 172 TH/MM3 (150-450) (150-450) Mean Platelet Volume 7.9 FL 8.2 FL (7.0-11.0) (7.0-11.0) Neutrophils (%) (Auto) 87.1 % 80.8 % (16.0-70.0) (16.0-70.0) Lymphocytes (%) (Auto) 7.2 % 11.3 % (9.0-44.0) (9.0-44.0) Monocytes (%) (Auto) 4.8 % (0.0-8.0) 5.7 % (0.0-8.0) Eosinophils (%) (Auto) 0.1 % (0.0-4.0) 1.4 % (0.0-4.0) Basophils (%) (Auto) 0.8 % (0.0-2.0) 0.8 % (0.0-2.0) Neutrophils # (Auto) 9.7 TH/MM3 12.4 TH/MM3 (1.8-7.7) (1.8-7.7) Lymphocytes # (Auto) 0.8 TH/MM3 1.7 TH/MM3 (1.0-4.8) (1.0-4.8) Monocytes # (Auto) 0.5 TH/MM3 0.9 TH/MM3 (0-0.9) (0-0.9) Eosinophils # (Auto) 0.0 TH/MM3 0.2 TH/MM3 (0-0.4) (0-0.4) Basophils # (Auto) 0.1 TH/MM3 0.1 TH/MM3 (0-0.2) (0-0.2) CBC Comment DIFF FINAL DIFF FINAL Differential Comment Sodium Level 146 MEQ/L 146 MEQ/L (136-145) (136-145) Potassium Level 3.4 MEQ/L 3.4 MEQ/L (3.5-5.1) (3.5-5.1) Chloride Level 109 MEQ/L 110 MEQ/L (98-107) (98-107) Carbon Dioxide Level 25.1 MEQ/L 26.9 MEQ/L (21.0-32.0) (21.0-32.0) Anion Gap 12 MEQ/L (5-15) 9 MEQ/L (5-15) Blood Urea Nitrogen 23 MG/DL (7-18) 24 MG/DL (7-18) Creatinine 0.59 MG/DL 0.56 MG/DL (0.60-1.30) (0.60-1.30) Estimat Glomerular Filtration 141 ML/MIN 149 ML/MIN Rate (>89) (>89) Random Glucose 174 MG/DL 133 MG/DL (74-106) (74-106) Calcium Level 8.0 MG/DL 7.8 MG/DL (8.5-10.1) (8.5-10.1) Phosphorus Level 2.2 MG/DL 2.4 MG/DL (2.5-4.9) (2.5-4.9) Magnesium Level 1.8 MG/DL 2.0 MG/DL (1.5-2.5) (1.5-2.5) Total Bilirubin 1.8 MG/DL 1.6 MG/DL (0.2-1.0) (0.2-1.0) Aspartate Amino Transf 119 U/L (15-37) 127 U/L (15-37) (AST/SGOT) Alanine Aminotransferase 108 U/L (12-78) 99 U/L (12-78) (ALT/SGPT) Alkaline Phosphatase 386 U/L 398 U/L (45-117) (45-117) Total Protein 5.5 GM/DL 5.4 GM/DL (6.4-8.2) (6.4-8.2) Albumin 1.6 GM/DL 1.8 GM/DL (3.4-5.0) (3.4-5.0) Stool C. difficile Toxin (PCR) NEGATIVE (NEGATIVE) Stl C. difficile Toxin PRESUMPTIVE Epiderm 027 NEGATIVE (NEGATIVE) (Melissa Mcclure) Result Diagram: 04/12/17 0805 04/12/17 0805 Microbiology Microbiology Date/Time Procedure Status Source Growth 04/08/17 15:00 Gram Stain - Final Complete Sputum Endotracheal 04/08/17 15:00 Sputum Culture - Final Complete Sputum Endotracheal MODERATE GROWTH NORMAL RESPIRATORY BERNARD 04/08/17 10:12 Aerobic Blood Culture - Preliminary Resulted Blood Peripheral NO GROWTH IN 4 DAYS 04/08/17 10:12 Anaerobic Blood Culture - Preliminary Resulted Blood Peripheral NO GROWTH IN 4 DAYS Imaging Last Impressions Chest X-Ray 04/08/17 0600 Signed Impressions: Service Date/Time: Saturday, April 08, 2017 05:10 - CONCLUSION: 1. Endotracheal tube and weighted feeding tube. 2. Bilateral pulmonary infiltrates. Some improvement from the prior study. Cheo Barrera Jr., MD Abdomen X-Ray 04/08/17 0000 Signed Impressions: Service Date/Time: Saturday, April 08, 2017 23:55 - CONCLUSION: Dobbhoff tube coiled in the stomach. Cheo Barrera Jr., MD Head Magnetic Resonance Angiography 03/28/17 0000 Signed Impressions: Service Date/Time: March 17:22 - CONCLUSION: Unremarkable examination. Bety Castillo MD Brain MRI 03/28/17 0000 Signed Impressions: Service Date/Time: March 17:22 - CONCLUSION: 1. 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 Small subacute ischemic bilateral thalamic infarcts. 2. There has been no significant change when compared to the prior exam. Yinka Harman MD Lower Extremity Ultrasound 03/25/17 0000 Signed Impressions: Service Date/Time: Saturday, March 25, 2017 22:17 - CONCLUSION: No evidence of DVT. Víctor Rosas MD CT Angiography 03/21/17 0000 Signed Impressions: Service Date/Time: March 00:33 - CONCLUSION: No evidence of pulmonary embolism is identified. Mild atelectasis left lung base. Fluid or phlegm within the trachea. Milo Muhammad MD Abdomen Ultrasound 03/20/17 0000 Signed Impressions: Service Date/Time: Monday, March 20, 2017 11:38 - CONCLUSION: 1. Hepatosplenomegaly without focal lesion. 2. Probable sludge within the lumen of the gallbladder. No intrahepatic duct. Cheo Martínez MD Shoulder X-Ray 03/02/17 1404 Signed Impressions: Service Date/Time: Thursday, March 02, 2017 15:18 - CONCLUSION: No evidence of recent bony injury. Deformity of the lateral left clavicle suggests old healed trauma. Cheo Martínez MD Maxillofacial CT 03/02/17 1342 Signed Impressions: Service Date/Time: Thursday, March 02, 2017 14:52 - CONCLUSION: Negative CT of the facial bones. Cheo Martínez MD Head CT 03/02/17 1342 Signed Impressions: Service Date/Time: Thursday, March 02, 2017 14:52 - CONCLUSION: 1. Prominent scalp swelling left frontal and parietal region. No skull fracture seen. 2. Intracranial contents are intact without acute finding. Cheo Martínez MD Chest CT 03/02/17 1342 Signed Impressions: Service Date/Time: Thursday, March 02, 2017 15:04 - CONCLUSION: 1. Abnormal appearance of the lateral left clavicle suggesting a combination of acute and chronic bony injury. Fracture lucencies without bridging callus is seen the region of the coracoid process. 2. The lungs are clear. No evidence of pneumothorax. 3. Moderate size hiatus hernia. Cheo Martínez MD Cervical Spine CT 03/02/17 1342 Signed Impressions: Service Date/Time: Thursday, March 02, 2017 14:52 - CONCLUSION: Negative CT cervical spine. Cheo Martínez MD Abdomen/Pelvis CT 03/02/17 1342 Signed Impressions: Service Date/Time: Thursday, March 02, 2017 15:04 - CONCLUSION: Moderate size hiatus hernia. Scattered small sigmoid diverticula. Otherwise negative exam. Cheo Martínez MD Procedures * 03/25/17 -Endotracheal intubation (Melissa Mcclure) Assessment and Plan Disease Oriented Problem List: (1) Sepsis due to Acinetobacter Comment: Sepsis syndrome secondary to pneumonia -MDR Acinetobacter (2) Acute hypoxemic respiratory failure Comment: Remains intubated on mechanical ventilation. 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 However, he is highly prone to further aspiration and increasing shortness of breath) Comment: Secondary to respiratory failure, pneumonia. Remains intubated on mechanical ventilation. (2) Pain 0-10 Scale: Unable to quantify Comment: Patient has had prolonged bedrest, and is now unable to reposition himself effectively. (3) Debility 0-10 Scale: Unable to quantify Comment: Secondary to acute illness and prolonged hospitalization. Pertinent Non-Medical Issues Psychosocial: 61-year-old with long-standing history of alcohol use and abuse, 1 daughter who is incarcerated in the [facility]. Spiritual: No reported. Legal: Daughter Tamanna is, [place] [facility] bam care decision proxy. She is currently incarcerated at [facility]. They are permitting her to participate in decisions at this time. Ethical issues impacting care: As stated above. . Important Contacts * Tamanna Sandhu, daughter/ HCP: Margot Nolen is, per [place] statues bam care decision proxy. . Now in [facility] (#[phone]). Facilitation of conversations with Tamanna can be arranged through booking (#[phone]) in emergency situations to address goals of care.Ask for a Gillespie on staff as shifts rotate throughout the week. * Guillermo Roberts, daughter friend: [phone] (cell)- has frequent contact w Amie - has been very helpful. Prognosis Prognosis: Poor prognosis for meaningful recovery. . Code Status: Full Code Plan * CODE STATUS: Full code. Code was change on 04/09/17 as per daughter's request. Benefits, risks and limitations of CPR, reintubation and mechanical ventilation were discussed with daughter given patient's clinical condition and multiple comorbidities. * HEALTHCARE DECISION-MAKING: Patient incapacitated secondary to clinical condition, unclear if he will regain capacity. Medical decision-making capacity will be reassessed once patient is extubated. Patient is , according to [place] statutes, health care proxy decision making falls to his only daughter, Tamanna. Now in [facility] (#[phone]). Facilitation of conversations with Tamanna can be arranged through booking (#) in emergency situations to address goals of care. Ask for a Gillespie on staff as shifts rotate throughout the week. * GOALS OF CARE: Daughter electing to pursue aggressive care to include tracheostomy and PEG tube placement. 04/12/17: Attempted to provide medical update to patient's daughter Tamanna given worsening clinical condition as evidence by new onset of seizure activity, altered mental status, patient not following any commands. Called [facility], left return telephone number. Telephone conversation with Tamanna's boyfriend Guillermo to provide medical update. Guillermo will convey this information to Tamanna and will visit patient over the weekend. * SYMPTOMS: == Dyspnea, secondary to respiratory failure. Remains intubated on mechanical ventilation. Failed SBT. GI and surg consulted for trach and peg placement as per daughter's wishes. == Debility. Secondary to burden of disease, acute illness and prolonged hospitalization. == Pain, secondary to prolonged hospitalization and bedrest. Oxycodone available as needed. * Case has been discussed with Dr. Ruby and bedside RN. * Palliative care contact information has been provided to patient's daughter and her boyfriend during prior telephone conversation. * Palliative care will continue to follow further clarifications of goals of care as patient's clinical course evolves. . (Melissa Mcclure) Time Spent Total Floor Time (mins): 31 (Total time to include review of medical records, physical exam, telephone call to patient's daughter, telephone conversation with daughter's boyfriend Guillermo and case discussion with Dr. Ruby and bedside RN.) >50% Counseling/Coord of Care: Yes (Melissa Mcclure) Attestation To help prompt me to consider important information that might be impacting today's encounter and assessment, information from prior notes written by myself or my colleagues may have been "brought forward" into today's note. My signature on this note, however, is an attestation that I personally performed the exam, history, and/or decision-making noted today, and, unless otherwise indicated, the interactions with patient, family, and staff as well as the review of records all occurred today. I also attest that the listed assessment and stated plan reflect my best clinical judgment today based on the combination of historical information, prior notes, and today's exam/ interactions. When time spent is documented, it refers only to time spent today by the signer, or if indicated, combined time spent today by collaborating physician/nurse practitioner. (Melissa Mcclure) Collaborating MD Comments . Chart reviewed. Case discussed with palliative care FARM REPORTER. I have reviewed above FARM REPORTER note and I concur. . (Greg Salas MD) Melissa Mcclure April 12, 2017 16:12 Greg Salas MD April 30, 2017 12:33
--- NOTE | 2017-04-12 16:41 | PD.CONS ---
cc: José Miguel Lundberg MD HPI Service General Surgery Consult Requested By Dr. Ruby Reason for Consult Percutaneous tracheostomy placement Primary Care Physician No Primary Care Physician History of Present Illness This is a 61-year-old male with a past medical history of alcoholism who presents to the emergency room after having altered mental status and lethargy for approximately 2 weeks. According to the chart and RN, the patient has had multiple intubations and extubations during the hospitalization. A General Surgery consultation has been requested for placement of a bedside. percutaneous tracheostomy Review of Systems ROS Limitations: Clinical Condition, Intubated Past Family Social History Past Medical History According to reviews of medical chart: End-stage liver disease Alcoholism Past Surgical History Unable to obtain Reported Medications See chart Allergies: Coded Allergies: PEANUTS (Unverified Allergy, Severe, 03/02/17) *MDRO Multi-Drug Resistant Organism (Verified Adverse Reaction, Unknown, ) MRSA PCR screen POSITIVE - 03/02/17 MDR Acinetobacter (sputum) - 03/25/17 Active Ordered Medications Current Medications Medications (Trade) Dose Ordered Sig/Mae Route Start Time Stop Time Status Last Admin (D50w (Vial) Inj) 25 ml UNSCH PRN IV PUSH 03/02/17 16:30 03/15/17 15:58 (Heparin Inj) 5,000 units Q8H SQ 03/09/17 14:00 Future Hold 04/12/17 13:17 (Lactulose Liq) 30 ml BID PO 03/12/17 21:00 04/12/17 09:48 (Xifaxan) 550 mg BID PO 03/20/17 09:00 04/12/17 09:48 (NS Flush) 2 ml UNSCH PRN IV FLUSH 03/20/17 07:30 (NS Flush) 2 ml BID IV FLUSH 03/20/17 09:00 04/12/17 09:49 (Protonix Inj) 40 mg DAILY IV 03/20/17 09:00 04/12/17 09:47 (Tears Naturale Opth Soln) 1 drop TID EACH EYE 03/20/17 09:00 04/12/17 13:10 (Zofran Inj) 4 mg Q6H PRN IV 03/20/17 07:30 04/05/17 01:12 (Senokot) 17.2 mg Q12H PRN PO 03/20/17 07:30 (Bactroban Nasal 2% Oint) 1 applic Taper BID EACH NARE 03/20/17 09:00 03/16/18 08:59 04/12/17 09:48 (Lactinex) 1 tab TID PO 03/24/17 18:00 04/12/17 12:39 (NS Flush) DAILY IVF 03/25/17 10:15 04/12/17 09:49 (NS Flush) UNSCH PRN IVF 03/25/17 10:15 Chlorhexidine Gluconate 15 ml 15 ml BID@08,20 MT 03/25/17 20:00 04/12/17 09:45 (fentaNYL DRIP) 250 ml @ 0 mls/hr TITRATE IV 03/25/17 10:15 04/03/17 08:03 Insulin Human Regular 1 1 Q4HR SQ 03/26/17 08:00 04/10/17 12:00 Potassium Chloride 100 ml @ 50 mls/hr Q2H PRN IV 03/27/17 12:30 04/09/17 17:13 (KCl 20 Meq Premix Inj) 100 ml @ 50 mls/hr Q2H PRN IV 03/27/17 12:30 04/11/17 23:40 Potassium Bicarb/ Potassium Chloride 50 meq 50 meq UNSCH PRN PO 03/27/17 12:30 04/10/17 08:37 Potassium Chloride 100 ml @ 25 mls/hr UNSCH PRN IV 03/27/17 12:30 04/01/17 10:58 Potassium Chloride 100 ml @ 50 mls/hr Q2H PRN IV 03/27/17 12:30 04/11/17 22:30 (Magnesium Sulfate Inj/NS Inj) 100 ml @ 50 mls/hr UNSCH PRN IV 03/27/17 12:30 Magnesium Oxide 800 mg 800 mg UNSCH PRN PO 03/27/17 12:30 (Magnesium Sulfate Inj/NS Inj) 100 ml @ 50 mls/hr UNSCH PRN IV 03/27/17 12:30 Potassium Phosphate 2000 mg 2,000 mg Q4H PRN PO 03/27/17 12:30 04/07/17 11:41 (Sodium Phosphate Inj/NS 250 ml Inj) 250 ml @ 42 mls/hr UNSCH PRN IV 03/27/17 12:30 04/08/17 01:59 (K-Phos) 2,000 mg UNSCH PRN PO/TUBE 03/27/17 12:30 04/10/17 08:38 (Roxicodone) 5 mg Q6H PRN OG-TUBE 03/31/17 21:30 04/11/17 15:28 (Reglan Inj) 10 mg Q8HR IV PUSH 03/31/17 22:00 04/12/17 13:10 (Proamatine) 10 mg Q8HR PO 04/01/17 22:00 04/12/17 13:09 (Tylenol) 500 mg Q6H PRN PO 04/01/17 23:15 04/12/17 00:41 (Colace Liq) 100 mg Q12HR PO 04/03/17 21:00 04/12/17 09:48 (Mycostatin Powder) 1 applic Q12HR TOPICAL 04/03/17 21:00 04/12/17 09:00 (Vitamin B1) 100 mg DAILY PO 04/05/17 09:00 04/12/17 09:48 (SoluCORTEF INJ) 50 mg DAILY IV PUSH 04/11/17 09:00 04/13/17 08:59 04/12/17 09:47 (K-Phos Neutral) 250 mg Q6HR PO 04/11/17 18:00 04/13/17 00:01 04/12/17 12:39 Water VOLUME: 200 ML Q6HR G-TUBE 04/11/17 18:00 04/12/17 12:00 Levetriacetam 500 mg/Sodium Chloride 105 ml @ 420 mls/hr Q12HR IV 04/12/17 21:00 (Versed Inj) 100 ml @ 0 mls/hr TITRATE IV 04/12/17 14:30 Family History Unable to obtain Social History Positive EtOH history Unable to obtain tobacco history Unable to obtain illicit drug use Physical Exam Vital Signs Vital Signs Date Time Temp Pulse Resp B/P Pulse Ox O2 Delivery O2 Flow Rate FiO2 04/12/17 16:15 96 35 04/12/17 11:18 95 35 04/12/17 10:00 111 04/12/17 08:51 35 04/12/17 08:00 103 04/12/17 08:00 35 04/12/17 08:00 99.5 99 18 111/72 98 04/12/17 07:50 96 35 04/12/17 06:00 105 04/12/17 04:00 106 18 102/66 92 04/12/17 04:00 35 04/12/17 04:00 106 04/12/17 03:57 92 35 04/12/17 02:00 101 04/12/17 01:41 18 04/12/17 00:05 94 35 04/12/17 00:00 104 04/12/17 00:00 35 04/12/17 00:00 104 19 97/62 94 04/11/17 22:00 111 04/11/17 21:36 92 35 04/11/17 20:00 115 04/11/17 20:00 35 04/11/17 20:00 111 19 111/74 04/11/17 18:00 93 04/11/17 16:36 94 35 Physical Exam GENERAL: Thin 61 year old male resting in bed intubated on mechanical ventilation. SKIN: Warm and dry. HEAD: Atraumatic. Normocephalic. EYES: Pupils equal and round. No scleral icterus. No injection or drainage. ENT: No nasal bleeding or discharge. Mucous membranes pink and moist. NECK: Trachea midline. CARDIOVASCULAR: Regular rate and rhythm. RESPIRATORY: No accessory muscle use. Clear to auscultation. Breath sounds equal bilaterally. GASTROINTESTINAL: Abdomen soft, non-tender, nondistended. No visible scars. MUSCULOSKELETAL: Extremities without clubbing, cyanosis, or edema. No obvious deformities. NEUROLOGICAL: Intubated/Sedated. PSYCHIATRIC: Unable to evaluate. Laboratory Laboratory Tests Test 04/12/17 08:05 White Blood Count 15.3 Red Blood Count 2.57 Hemoglobin 8.4 Hematocrit 26.0 Mean Corpuscular Volume 101.0 Mean Corpuscular Hemoglobin 32.8 Mean Corpuscular Hemoglobin 32.5 Concent Red Cell Distribution Width 16.6 Platelet Count 172 Mean Platelet Volume 8.2 Neutrophils (%) (Auto) 80.8 Lymphocytes (%) (Auto) 11.3 Monocytes (%) (Auto) 5.7 Eosinophils (%) (Auto) 1.4 Basophils (%) (Auto) 0.8 Neutrophils # (Auto) 12.4 Lymphocytes # (Auto) 1.7 Monocytes # (Auto) 0.9 Eosinophils # (Auto) 0.2 Basophils # (Auto) 0.1 CBC Comment DIFF FINAL Differential Comment Sodium Level 146 Potassium Level 3.4 Chloride Level 110 Carbon Dioxide Level 26.9 Anion Gap 9 Blood Urea Nitrogen 24 Creatinine 0.56 Estimat Glomerular Filtration 149 Rate Random Glucose 133 Calcium Level 7.8 Phosphorus Level 2.4 Magnesium Level 2.0 Total Bilirubin 1.6 Aspartate Amino Transf 127 (AST/SGOT) Alanine Aminotransferase 99 (ALT/SGPT) Alkaline Phosphatase 398 Total Protein 5.4 Albumin 1.8 Date/Time Procedure Status Source Growth 04/08/17 15:00 Gram Stain - Final Complete Sputum Endotracheal 04/08/17 15:00 Sputum Culture - Final Complete Sputum Endotracheal MODERATE GROWTH NORMAL RESPIRATORY BERNARD 04/08/17 10:12 Aerobic Blood Culture - Preliminary Resulted Blood Peripheral NO GROWTH IN 4 DAYS 04/08/17 10:12 Anaerobic Blood Culture - Preliminary Resulted Blood Peripheral NO GROWTH IN 4 DAYS Result Diagram: 04/12/1780404/12/17804 Assessment and Plan Assessment and Plan 61 year old male with ventilator-dependent respiratory failure in need of bedside percutaneous tracheostomy placement. -Plan to place tracheostomy at bedside on Saturday -Obtain consents--- this may be difficult since the POA/daughter is in a correctional institution -Nothing by mouth after midnight on Saturday -Discussed with Dr. Ruby -Discussed with Dr. Lundberg I certify and attest that I personally examined this patient in the room. Will attempt to contact family for consent. I discussed his case with his nurse and Dr. Ruby. JOSÉ MIGUEL LUNDBERG MD FACS Discussed Condition With Dr. Lundberg Bedside RN Amarilis Perez April 12, 2017 16:41 José Miguel Lundberg MD April 22, 2017 11:11
[2017-04-12] MEDS: levETIRAcetam INJ 500 MG in SODIUM CHLORIDE 0.9% INJ 100 ML IV SCH (20:46)
[2017-04-12] MEDS: POTASSIUM CHLOR 20 MEQ PREMIX 100 ML IV PRN (21:00)
--- NOTE | 2017-04-12 21:57 | RADRPT ---
EXAM DATE/TIME: 04/12/2017 21:30 [facility] COMPARISON: MRI BRAIN W/O CONTRAST, March 28, 2017, 17:22. INDICATIONS : Seizures. RADIATION DOSE: 34.00 CTDIvol (mGy) MEDICAL HISTORY : None SURGICAL HISTORY : None. ENCOUNTER: Initial ACUITY: 1 day PAIN SCALE: Non-responsive LOCATION: cranial TECHNIQUE: Multiple contiguous axial images were obtained of the head. Using automated exposure control and adj ustment of the mA and/or kV according to patient size, radiation dose was kept as low as reasonably a chievable to obtain optimal diagnostic quality images. FINDINGS: A large area of encephalomalacia is present in the central ruthy. Brain is otherwise symmetric and elan ssly unremarkable with no evidence of hemorrhage. Nothing to suggest acute infarction. Ventricles are symmetric with cavum septum pellucida noted. There is fluid in the left mastoid air cells. CONCLUSION: Pontine encephalomalacia. Left mastoiditis. Casper Alva MD on April 12, 2017 at 21:53 Board Certified Radiologist. This report was verified electronically.
[2017-04-13] VITALS (21 sets, daily range): BP systolic 96–111; BP diastolic 65–73; PULSE 79–115; RESP 18–36; TEMP 99.5–101.2; O2SAT 94–99
[2017-04-13] MEDS: RESP: ALBUTEROL 2.5 MG/IPRATROPIUM 0.5 MG NEB (SCH) NEB ×6 (00:17→20:06)
[2017-04-13] MEDS: POTASSIUM PHOSPHATE/SODIUM PHOSPHATE 250 MG TAB PO SCH (00:31)
[2017-04-13] MEDS: INSULIN NovoLIN REGULAR SUPPLEMENTAL SCALE SQ SCH ×6 (04:00→20:00)
--- NOTE | 2017-04-13 05:01 | RADRPT ---
EXAM DATE/TIME: 04/13/2017 03:50 [facility] COMPARISON: CHEST SINGLE AP, April 08, 2017, 5:10. INDICATIONS : Shortness of breath, possible pulmonary disease. MEDICAL HISTORY : None. SURGICAL HISTORY : None. ENCOUNTER: Subsequent ACUITY: 1 week PAIN SCORE: Non-responsive. LOCATION: Bilateral chest FINDINGS: There continue to be scattered bilateral pulmonary infiltrates in the mid and lower lung beckett. Thes e are stable compared to the prior study. The endotracheal tube remains in place. No pneumothorax. Th e heart size is stable. CONCLUSION: Stable bilateral scattered pulmonary infiltrates. Víctor Rosas MD on April 13, 2017 at 4:59 Board Certified Radiologist. This report was verified electronically.
[2017-04-13] MEDS: MIDODRINE 5 MG TAB PO SCH ×3 (05:25→21:52)
[2017-04-13] MEDS: HEPARIN SODIUM - SQ 10,000 UNITS/ML VIAL SQ SCH ×3 (05:31→21:52)
[2017-04-13] MEDS: METOCLOPRAMIDE HCL 10 MG/2 ML VIAL IV PUSH SCH ×2 (05:31→13:28)
[2017-04-13] MEDS: FREE WATER G-TUBE SCH ×4 (06:00→17:10)
[2017-04-13 06:49] LABS: AUTOMATED NEUTROPHIL # 11.6 TH/MM3 (1.8-7.7); BASOPHIL # 0.1 TH/MM3 (0-0.2); BASOPHIL % 0.7 % (0.0-2.0); EOSINOPHIL # 0.2 TH/MM3 (0-0.4); EOSINOPHIL % 1.6 % (0.0-4.0); HEMATOCRIT 27.5 % (39.0-51.0); HEMO FLAGS DIFF FINAL; LYMPH % 13.9 % (9.0-44.0); LYMPHOCYTE # 2.1 TH/MM3 (1.0-4.8); MEAN CELL VOLUME 101.5 FL (80.0-100.0); MEAN CORPUSCULAR HEMOGLOBIN 33.3 PG (27.0-34.0); MEAN CORPUSCULAR HGB CONC 32.8 % (32.0-36.0); MONO % 7.5 % (0.0-8.0); NEUT % 76.3 % (16.0-70.0); PLATELET COUNT 147 TH/MM3 (150-450); RED BLOOD COUNT 2.71 MIL/MM3 (4.50-5.90); RED CELL DISTRIBUTION WIDTH 16.3 % (11.6-17.2); WHITE BLOOD COUNT 15.2 TH/MM3 (4.0-11.0)
[2017-04-13 07:28] LABS: BICARBONATE 27.1 MEQ/L (21.0-32.0); POTASSIUM 3.4 MEQ/L (3.5-5.1)
[2017-04-13] MEDS: levETIRAcetam INJ 500 MG in SODIUM CHLORIDE 0.9% INJ 100 ML IV SCH ×2 (08:37→21:51)
[2017-04-13] MEDS: POTASSIUM CHLOR 40 MEQ PREMIX 100 ML IV PRN (08:46)
[2017-04-13] MEDS: CHLORHEXIDINE 0.12% (ORAL KIT) 15 ML CUP MT SCH ×2 (08:47→21:50)
[2017-04-13] MEDS: SODIUM CHLORIDE 0.9% FLUSH 10 ML FLUSH IVF SCH (09:00)
[2017-04-13] MEDS: SODIUM CHLORIDE 0.9% FLUSH 10 ML FLUSH IV FLUSH SCH ×2 (10:05→21:51)
[2017-04-13] MEDS: ARTIFICIAL TEARS OPTH SOLN 15 ML BTL EACH EYE SCH ×3 (10:05→17:09)
[2017-04-13] MEDS: NYSTATIN 100,000 U/GM PWD 15 GM BTL TOPICAL SCH ×2 (10:06→21:00)
[2017-04-13] MEDS: PANTOPRAZOLE SODIUM 40 MG VIAL IV SCH (10:32)
[2017-04-13] MEDS: MUPIROCIN 2% OINT 1 APPLIC/GM SYR EACH NARE SCH ×2 (10:33→21:51)
--- NOTE | 2017-04-13 10:53 | RADRPT ---
EXAM DATE/TIME: 04/13/2017 10:36 [facility] COMPARISON: ABDOMEN SINGLE VIEW, April 08, 2017, 23:55. INDICATIONS : Dobhoff tube placement MEDICAL HISTORY : None. SURGICAL HISTORY : None. ENCOUNTER: Initial ACUITY: 1 day PAIN SCORE: Non-responsive. LOCATION: Bilateral upper quadrant FINDINGS: Examination of the abdomen demonstrates a normal bowel gas pattern. Dobbhoff tube with tip in distal stomach. No free air is identified. No organomegaly is evident. Osseous structures are intact. CONCLUSION: Dobbhoff tip in distal stomach. No evidence of obstruction. Logan Morgan MD on April 13, 2017 at 10:51 Board Certified Radiologist. This report was verified electronically.
--- NOTE | 2017-04-13 10:57 | HHI.PR ---
Subjective Remarks Pt is seen as a reconsult.Seen by Dr Mazariegos on this admission.Asked for consult for sz's. Pt seen in room head shaking for less than a minute right gaze deviation. He has CMP. Objective Vital Signs Date Time Temp Pulse Resp B/P Pulse Ox O2 Delivery O2 Flow Rate FiO2 04/13/17 09:01 35 04/13/17 09:01 96 35 04/13/17 06:00 96 04/13/17 04:14 99 35 04/13/17 04:00 35 04/13/17 04:00 99.5 99 18 111/68 98 04/13/17 04:00 99 04/13/17 03:00 115 27 04/13/17 02:00 107 04/13/17 02:00 106 19 102/67 95 04/13/17 01:00 108 21 98/67 96 04/13/17 00:25 97 35 04/13/17 00:00 106 04/13/17 00:00 35 04/13/17 00:00 99.7 106 21 105/71 96 04/12/17 23:00 101 18 99/63 95 04/12/17 22:00 107 18 96/61 94 04/12/17 21:38 100 100 04/12/17 21:18 100 100 04/12/17 21:00 122 22 103/66 94 04/12/17 20:17 94 35 04/12/17 20:00 99.0 112 25 104/68 91 04/12/17 20:00 35 04/12/17 18:00 114 04/12/17 16:15 96 35 04/12/17 16:00 35 04/12/17 16:00 115 04/12/17 16:00 99.2 115 22 125/83 98 04/12/17 14:00 112 04/12/17 12:00 35 04/12/17 12:00 114 04/12/17 11:18 95 35 I/O 04/12/17 04/12/17 04/12/17 04/13/17 04/13/17 04/13/17 07:00 15:00 23:00 07:00 15:00 23:00 Intake Total 246 ml 645 ml 781 ml 909 ml Output Total 450 ml 450 ml 100 ml 200 ml Balance -204 ml 195 ml 681 ml 709 ml Intake Oral 0 ml 0 ml 0 ml IV Total 105 ml 125 ml 0 ml 629 ml Tube Feeding 141 ml 320 ml 781 ml 280 ml Other 200 ml Output Urine Total 150 ml 100 ml 100 ml 200 ml Stool Total 300 ml 350 ml intubated vent no sedation pupils 2-1mm right gaze deviation. does not follow any commands no wd to pain toes silent. Result Diagram: 04/13/1747 04/13/1747 Assessment and Plan Assessment and Plan CPM seizures -eeg -load 1gm cerebyx -pht level adjusted to albumin and place on maintenance dose of cerebyx. ativan prn for witnessed sz -can cont keppra for now. will follow over weekend Dr Mazariegos to resume care Saturday04/15/17. Zhanna Dinh MD April 13, 2017 10:56
[2017-04-13] MEDS ORDERED: FOSPHENYTOIN SODIUM 500 MG PE/10 ML VIAL IM ONE (11:00)
[2017-04-13] MEDS: LACTULOSE SYRUP 20 GM/30 ML CUP PO SCH ×2 (11:42→21:51)
[2017-04-13] MEDS: DOCUSATE SODIUM 100 MG/10 ML UDC PO SCH (11:42)
[2017-04-13] MEDS: THIAMINE HCL 100 MG TAB PO SCH (11:42)
[2017-04-13] MEDS: LACTOBACILLUS ACIDOPHILUS TAB PO SCH ×3 (11:42→17:09)
[2017-04-13] MEDS: RIFAXIMIN 550 MG TAB PO SCH ×2 (11:42→21:51)
[2017-04-13] MEDS ORDERED: FOSPHENYTOIN INJ 1,000 MGPE in SODIUM CHLORIDE 0.9% INJ 100 ML IV ONE (13:00)
--- NOTE | 2017-04-13 13:33 | HHI.CCPN ---
Subjective Remarks/Hospital Course This is a 61-year-old male with a past history of alcohol abuse and a prior admission in 2015 for severe life-threatening hyponatremia at that time with a serum sodium of 98. He presents today with what he states is a 13 day history of worsening fatigue and weakness. He is very altered and is very difficult to understand the patient. What I can understand from him, is that at some point during these 13 days he has fallen and hit his face. Otherwise he states he lays on the couch, and has not gotten not much. He states he drinks 1 beer in the morning, and 1 beer in the afternoon. He does endorse taking some Xanax to help him sleep. He denies other drug use. He denies chest pain, shortness of breath, fever, chills, nausea, vomiting, abdominal pain. It is very difficult to get him to answer anymore questions about his medical history. His speech is very slurred and he is trying to talk about how he misses his daughter. Emergency department he was found to have a serum sodium of 99, a bilirubin of 8.9, lactate of 9.8, ammonia of 60, CK of 7000, elevated troponin of 4.9 with a normal MB ratio, creatinine 1.5, serum bicarbonate of 13. His white count is 12 , platelets 112. INR 1.9. His MELD calculates at 26. 4/2: Sodium level rapidly corrected overnight, likely secondary to appropriate correction of severe life-threatening dehydration. NS fluids changed to 1/2NS and correction slowed down significantly. sodium up to 130 this AM. CK downtrending. however, patient remains severely hypotensive requiring Levophed to maintain a map > 65 mmHg. This AM, serum K 1.6 (confirmed). started replacement with 200meq KCl and recheck K. 03/04: persists in vasoplegic distributive shock. afebrile. no evidence of infection. wbc downtrending. persists with severe life-threatening electrolyte derangements. passed swallow eval for nectar thick liquids. sodium stable at 131. ck downtrending. 03/05: persists in distributive shock. echo yesterday with EF 30%, globally decreased function. milrinone added yesterday with improvement in vasopressor requirement. still with multiple electrolyte abnormalities despite very aggressive replacement. very poor appetite. sodium stable at 131, which appears to be around baseline for him, looking back at prior records. also became agitated and delirious yesterday, likely secondary to etoh withdraw. started on Ativan and Librium. 03/06: electrolyte derangements persist. placed on continuous NaPhos infusion x 24h due to severe life-threatening hypophosphatemia. serial K, phos checks. weaning off levophed, milrinone persists. still poor appetite. sodium jumped from 132 to 139, but no significant mental status change, and we did not increase sodium load. 03/07: still requiring high electrolyte replacement. milrinone weaned to 0.375 mcg /kg/min overnight. still doing well with that. delirium persists. 03/08 Remains on milrinone. Electrolyte improving. Remains very lethargic, intermittently follows commands 03/09: Continues to be lethargic but wakes up follows some commands. Remains on milrinone will DC today. T max 100.1, urine output adequate sodium is 143 03/10: More awake alert, ate 50% of break fast. Will DC Dobhoff. Discontinue arterial and central lines. Delirium also improved, remains weak 03/11: doing much better this morning. no complaints. still with poor appetite. electrolytes improved. 03/20: We consulted for respiratory failure. Patient was last seen in room 1415 CMP receiving oral cares and became acutely hypoxic saturations 82% with coarse breath sounds. Halicat called. Patient was placed on a Venturi mask 50 % with desaturations to the mid 90s. He received Solu-Medrol 20 mg IV 1, Lasix 40 mg IV 1 and was transferred IM [facility] 521. Hemodynamically stable. Poor mentation 03/25: Reconsulted due to respiratory failure. Patient with gurgling/ transmitted upper airway sounds. Respiration the 50s. Decision made to orotracheally intubate. Noted to have been febrile with increased O2 course over the past 48 hours. 03/26: Afebrile. Requiring Nimbex drip for ventilator synchrony. Decreased urine output noted. Hemoglobin decreased likely dilutional. Tolerating tube feeding. Electrolytes been replaced. 03/27: Tmax 100.9. Currently 97.2. +6 L past 24 hours. Hemoglobin 8 transfuse overnight. Potassium 3. We'll discontinue Nimbex drip for vent synchrony today. 03/28: Afebrile. Negative fluid balance past 24 hours. Hemoglobin currently 9. Potassium 3.0. Currently on sedation vacation positive gag and otherwise unresponsive. 03/29: Tmax 103. Currently afebrile. Not tolerating tube feeds. Remains on Kiran-Synephrine. Did not tolerate sedation vacation back on Versed at 5 mg an hour fentanyl drip at 100 mcg an hour. One bowel movement. 03/30 Tube feeds remain on hold. On neosynephrine 40 mcg/min, RN states she has been weaning. Having BMs. On Versed 8 mg/hr and fentanyl 100 mcg/hr. 03/31 Off versed. Remains on fentanyl 100 mcg/hr. Having hiccups. Still on neosynephrine 40 mcg/min. Tolerating trickle feeds. Had 2 bowel movements 04/01: no meaningful change. still requires fentanyl for sedation. still on low- dose vasopressors. 04/02: no changes. still on levo @ 7 mcg/min. unable to wean off fentanyl due to tachycardia and tachypnea. 04/03: Off all sedation. On low-dose norepinephrine. Essentially unresponsive on the ventilator. Plan for likely withdrawal of care tomorrow 04/04: Off all sedation. Off all vasopressors. According to overnight RN was following commands. Will open eyes but not following commands this AM. 04/05 No events overnight. Afebrile On no sedation. 04/06: Resting comfortably in bed. Eyes are open. Moving head back and forth continuously. Weakly following commands with his upper and lower extremities. 04/07: Low-grade temperatures overnight. 99.8. Eyes are open. Moving back and forth. Positive BM. Continues to be following commands. 04/08 Patient remains intubated on no sedation awake and follows commands. Tmax 100.8 04/09 Patient remains intubated, tolerated CPAP all day and had good responses in UO with Bumex yesterday. Afebrile. 04/10: Tmax 99.1. Went back on set rate ventilation yesterday. Will attempt PSV trials throughout the day with goal to attempt extubation tomorrow. 04/11: Tmax 100.2. Currently 100.1. Did not tolerate weaning parameters with NIF -9 and unacceptable RSBI. Patient is arousable and follows commands eyes open 04/12: Omayra care reports tonic-clonic seizure activity this AM. Heart rate in the 140s during episode with violent shaking. On examination, patient's eyes are open and at baseline except currently not following commands. Subjective: 04/13: had 2 seizures this morning, both resolved without medication interventions. Dr. Fabrizio navas'd at bedside earlier and ordered Cerebyx load. no other changes. plan for trach/peg next week Objective Vital Signs Date Time Temp Pulse Resp B/P Pulse Ox O2 Delivery O2 Flow Rate FiO2 04/13/17 13:00 35 04/13/17 12:00 108 04/13/17 11:50 98 04/13/17 08:00 100.0 18 106/67 Intake and Output 04/12/17 04/12/17 04/12/17 07:59 15:59 23:59 Intake Total 246 ml 645 ml 781 ml Output Total 450 ml 450 ml 100 ml Balance -204 ml 195 ml 681 ml Result Diagram: 04/13/17 0547 04/13/17 0547 Imaging Last Impressions Chest X-Ray 04/08/17 0600 Signed Impressions: Service Date/Time: Saturday, April 08, 2017 05:10 - CONCLUSION: 1. Endotracheal tube and weighted feeding tube. 2. Bilateral pulmonary infiltrates. Some improvement from the prior study. Cheo Barrera Jr., MD Abdomen X-Ray 04/08/17 0000 Signed Impressions: Service Date/Time: Saturday, April 08, 2017 23:55 - CONCLUSION: Dobbhoff tube coiled in the stomach. Cheo Barrera Jr., MD Head Magnetic Resonance Angiography 03/28/17 0000 Signed Impressions: Service Date/Time: March 17:22 - CONCLUSION: Unremarkable examination. Bety Castillo MD Brain MRI 03/28/17 0000 Signed Impressions: Service Date/Time: March 17:22 - CONCLUSION: 1. 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 Small subacute ischemic bilateral thalamic infarcts. 2. There has been no significant change when compared to the prior exam. Yinka Harman MD Lower Extremity Ultrasound 03/25/17 0000 Signed Impressions: Service Date/Time: Saturday, March 25, 2017 22:17 - CONCLUSION: No evidence of DVT. Víctor Rosas MD CT Angiography 03/21/17 0000 Signed Impressions: Service Date/Time: March 00:33 - CONCLUSION: No evidence of pulmonary embolism is identified. Mild atelectasis left lung base. Fluid or phlegm within the trachea. Milo Muhammad MD Abdomen Ultrasound 03/20/17 0000 Signed Impressions: Service Date/Time: Monday, March 20, 2017 11:38 - CONCLUSION: 1. Hepatosplenomegaly without focal lesion. 2. Probable sludge within the lumen of the gallbladder. No intrahepatic duct. Cheo Martínez MD Shoulder X-Ray 03/02/17 1404 Signed Impressions: Service Date/Time: Thursday, March 02, 2017 15:18 - CONCLUSION: No evidence of recent bony injury. Deformity of the lateral left clavicle suggests old healed trauma. Cheo Martínez MD Maxillofacial CT 03/02/17 1342 Signed Impressions: Service Date/Time: Thursday, March 02, 2017 14:52 - CONCLUSION: Negative CT of the facial bones. Cheo Martínez MD Head CT 03/02/17 1342 Signed Impressions: Service Date/Time: Thursday, March 02, 2017 14:52 - CONCLUSION: 1. Prominent scalp swelling left frontal and parietal region. No skull fracture seen. 2. Intracranial contents are intact without acute finding. Cheo Martínez MD Chest CT 03/02/17 1342 Signed Impressions: Service Date/Time: Thursday, March 02, 2017 15:04 - CONCLUSION: 1. Abnormal appearance of the lateral left clavicle suggesting a combination of acute and chronic bony injury. Fracture lucencies without bridging callus is seen the region of the coracoid process. 2. The lungs are clear. No evidence of pneumothorax. 3. Moderate size hiatus hernia. Cheo Martínez MD Cervical Spine CT 03/02/17 1342 Signed Impressions: Service Date/Time: Thursday, March 02, 2017 14:52 - CONCLUSION: Negative CT cervical spine. Cheo Martínez MD Abdomen/Pelvis CT 03/02/17 1342 Signed Impressions: Service Date/Time: Thursday, March 02, 2017 15:04 - CONCLUSION: Moderate size hiatus hernia. Scattered small sigmoid diverticula. Otherwise negative exam. Cheo Martínez MD Objective Remarks GENERAL: 61-year-old chronically ill appearing male, currently critically ill, orotracheally intubated. HEENT: Healing abrasion left side scalp. TIMOTHY. Scleral icterus. Very poor dentition. NECK: Trachea Midline RESP: Coarse breath sounds bilaterally. Few wheezes. CARDIOVASCULAR: Tachycardia, RR. ABDOMEN: Slightly distended but soft, bowel sounds present, tolerating tube feeds. : Johns in place with conrad urine output. mild/moderate scrotal edema. MUSCULOSKELETAL: No obvious deformity. 1+ edema all extremities NEUROLOGICAL: + gag and cough. Opens eyes and weakly following commands with upper and lower extremities. A/P Assessment and Plan Neuro/Psych: Osmotic demyelination syndrome Acute toxic metabolic encephalopathy secondary to hypercarbic respiratory failure Alcohol dependence History of EtOH induced seizure withdrawal Chronic benzodiazepine use Bilateral thalamic CVA Off all sedation oxycodone 5 mg every 4 hours as needed for pain Zyprexa discontinued MRI 03/21 - T1/T2 prolonged with sparing of this central appears final fibers. 2 small spots in the posterior central spinal tract consistent with Osmotic demyelination syndrome. ODS most likely from correction of Na, with underlying alcoholism. MRI brain 03/28 revealed subacute bilateral thalamic lacunar infarcts, CPM. CT head 03/05 revealed no acute intracranial findings Continue thiamine Seen by neurology/Dr. Mazariegos. Check CT head today with altered mental status/partial seizures. EEG ordered continue Keppra 500mg BID and add Cerebyx load. Respiratory: Acute hypoxemic hypercapnic respiratory failure PRVC 18/550/1.2/5/35 daily PSV trials. lasted for 6 hours today before failing for tachypnea. Ventilator bundle Bronchodilator therapy every 4 hours and as needed SBT daily as pablo. Cardiovascular: Chronic Systolic heart failure Echocardiogram 03/04 revealed EF 35-40%. Mild mR. Left atrium dilated. JANE 33 mmHg TSH within normal limits 0.8 s/p hydrocortisone. Continue midodrine 10 mg 3 times Monitor HR and BP keep MAP>65mmHg Renal/FEN: Acute Kidney Injury- Rhabdomyolysis- resolved ODS-see neuro Hypokalemia Hypernatremia Monitor renal function, I/O's, electrolytes replacement per protocol. daily bmp GI: EtOH cirrhosis Hyperammonemia Hiatal hernia Sigmoid diverticulosis History of umbilical hernia repair Hypoalbuminemia Continue tub feeds Jevity 1.5 with goal rate 60ml/hr On Xifaxan 550 twice a day/lactulose 30 twice a day. LFT is elevated. Ultrasound liver-hepatosplenomegaly. Sludge in gallbladder On IV Protonix d/c Reglan. Heme: Leukocytosis Macrocytic anemia Monitor CBC. No indications for transfusion of blood proximally postop B12 1452, Folate 15.2. TSH 0.8. ID: Likely aspiration pneumonia Escherichia coli UTI 03/11 - completed therapy Acinetobacter pneumonia Pertinent cultures 04/08 - blood cultures 2 - no growth - sputum - no growth 04/05 - urine -C GLABRATA AND C. ALBICANS 03/29 - blood cultures 2 - NGTD 03/25 - sputum --Acinetobacter. 03/25 - urine - NGTD 03/25 - blood cultures 2 -no growth 03/22 - urine - no growth 03/22 - blood cultures 2 - negative 03/20 - blood cultures 2 - no growth 03/11 - urine - Escherichia coli 03/02 - blood cultures 2 - no growth Pancultured 04/08 ( Blood cx x 2 sets, sputum, UA with cx if needed) Followed by Dr. Lisa/ID. s/p Unasyn. Off Flagyl po 03/24 Endocrine: Hyperglycemia of critical illness History of hypothyroidism SSI with Accu-Cheks every 4 hours to maintain euglycemia MSK: History of old left clavicle fracture PT/OT evaluate and treat Access Peripheral IV. Central line if indicated Prophylaxis: GI - Protonix DVT - SCD/heparin subcutaneous Palliative care is following code status changed to full code per daughter's request. Tamanna Sandhu, daughter/ HCP: from [facility] [phone] now confirmed transferred to [facility] in [place] facility ) Code status -full code Level 2 Trach/PEG next week. Full code Tu Bryant MD April 13, 2017 13:33 Tu Bryant MD April 13, 2017 13:33
--- NOTE | 2017-04-13 17:35 | HHI.IDPN ---
Note Infectious Disease Note ID COVERAGE: Patient seen and examined. Discussed with RN. Awake and moving eyes randomly. Was having seizures today. Had 4 hours of CPAP today and was put on vent when he developed seizures. Trach and PEG being discussed Antibiotics None Lines PIV Past Medical History ETOHism Allergies: Coded Allergies: PEANUTS (Unverified Allergy, Severe, 03/02/17) *MDRO Multi-Drug Resistant Organism (Verified Adverse Reaction, Unknown, ) MRSA PCR screen POSITIVE - 03/02/17 MDR Acinetobacter (sputum) - 03/25/17 Objective Vital Signs Date Time Temp Pulse Resp B/P Pulse Ox O2 Delivery O2 Flow Rate FiO2 04/13/17 16:00 35 04/13/17 16:00 99.5 109 36 99/65 94 04/13/17 16:00 109 04/13/17 14:43 95 35 04/13/17 14:00 106 04/13/17 13:00 35 04/13/17 12:00 35 04/13/17 12:00 100.2 108 24 110/73 97 04/13/17 12:00 108 04/13/17 11:50 98 35 04/13/17 10:00 104 04/13/17 09:01 35 04/13/17 09:01 96 35 04/13/17 09:00 35 04/13/17 08:00 100.0 94 18 106/67 96 04/13/17 08:00 35 04/13/17 08:00 79 04/13/17 06:00 96 04/13/17 04:14 99 35 04/13/17 04:00 35 04/13/17 04:00 99.5 99 18 111/68 98 04/13/17 04:00 99 04/13/17 03:00 115 27 04/13/17 02:00 107 04/13/17 02:00 106 19 102/67 95 04/13/17 01:00 108 21 98/67 96 04/13/17 00:25 97 35 04/13/17 00:00 106 04/13/17 00:00 35 04/13/17 00:00 99.7 106 21 105/71 96 04/12/17 23:00 101 18 99/63 95 04/12/17 22:00 107 18 96/61 94 04/12/17 21:38 100 100 04/12/17 21:18 100 100 04/12/17 21:00 122 22 103/66 94 04/12/17 20:17 94 35 04/12/17 20:00 99.0 112 25 104/68 91 04/12/17 20:00 35 04/12/17 18:00 114 04/12/17 04/12/17 04/13/17 15:00 23:00 07:00 Intake Total 645 ml 781 ml 909 ml Output Total 450 ml 100 ml 200 ml Balance 195 ml 681 ml 709 ml Intake Oral 0 ml 0 ml IV Total 125 ml 0 ml 629 ml Tube Feeding 320 ml 781 ml 280 ml Other 200 ml Output Urine Total 100 ml 100 ml 200 ml Stool Total 350 ml Laboratory Tests Test 04/12/17 04/13/17 08:05 05:47 White Blood Count 15.3 TH/MM3 15.2 TH/MM3 Red Blood Count 2.57 MIL/MM3 2.71 MIL/MM3 Hemoglobin 8.4 GM/DL 9.0 GM/DL Hematocrit 26.0 % 27.5 % Mean Corpuscular Volume 101.0 FL 101.5 FL Mean Corpuscular Hemoglobin 32.8 PG 33.3 PG Mean Corpuscular Hemoglobin 32.5 % 32.8 % Concent Red Cell Distribution Width 16.6 % 16.3 % Platelet Count 172 TH/MM3 147 TH/MM3 Mean Platelet Volume 8.2 FL 8.9 FL Neutrophils (%) (Auto) 80.8 % 76.3 % Lymphocytes (%) (Auto) 11.3 % 13.9 % Monocytes (%) (Auto) 5.7 % 7.5 % Eosinophils (%) (Auto) 1.4 % 1.6 % Basophils (%) (Auto) 0.8 % 0.7 % Neutrophils # (Auto) 12.4 TH/MM3 11.6 TH/MM3 Lymphocytes # (Auto) 1.7 TH/MM3 2.1 TH/MM3 Monocytes # (Auto) 0.9 TH/MM3 1.1 TH/MM3 Eosinophils # (Auto) 0.2 TH/MM3 0.2 TH/MM3 Basophils # (Auto) 0.1 TH/MM3 0.1 TH/MM3 CBC Comment DIFF FINAL DIFF FINAL Differential Comment Laboratory Tests Test 04/12/17 04/13/17 08:05 05:47 Sodium Level 146 MEQ/L 148 MEQ/L Potassium Level 3.4 MEQ/L 3.4 MEQ/L Chloride Level 110 MEQ/L 110 MEQ/L Carbon Dioxide Level 26.9 MEQ/L 27.1 MEQ/L Anion Gap 9 MEQ/L 11 MEQ/L Blood Urea Nitrogen 24 MG/DL 22 MG/DL Creatinine 0.56 MG/DL 0.43 MG/DL Estimat Glomerular Filtration 149 ML/MIN 203 ML/MIN Rate Random Glucose 133 MG/DL 86 MG/DL Calcium Level 7.8 MG/DL 8.1 MG/DL Phosphorus Level 2.4 MG/DL 3.6 MG/DL Magnesium Level 2.0 MG/DL 2.0 MG/DL Total Bilirubin 1.6 MG/DL Aspartate Amino Transf 127 U/L (AST/SGOT) Alanine Aminotransferase 99 U/L (ALT/SGPT) Alkaline Phosphatase 398 U/L Total Protein 5.4 GM/DL Albumin 1.8 GM/DL Microbiology Date/Time Procedure Status Source Growth 04/12/17 16:40 Aerobic Blood Culture - Preliminary Resulted Blood Peripheral NO GROWTH IN 1 DAY 04/12/17 16:40 Anaerobic Blood Culture - Preliminary Resulted Blood Peripheral NO GROWTH IN 1 DAY 04/12/17 17:07 Aerobic Blood Culture - Preliminary Resulted Blood Peripheral NO GROWTH IN 1 DAY 04/12/17 17:07 Anaerobic Blood Culture - Preliminary Resulted Blood Peripheral NO GROWTH IN 1 DAY IMAGING: Chest X-Ray 04/13/17 0600 Signed Impressions: Service Date/Time: Thursday, April 13, 2017 03:50 - CONCLUSION: Stable bilateral scattered pulmonary infiltrates. Víctor Rosas MD Abdomen X-Ray 04/13/17 0000 Signed Impressions: Service Date/Time: Thursday, April 13, 2017 10:36 - CONCLUSION: Dobbhoff tip in distal stomach. No evidence of obstruction. Logan Morgan MD Head CT 04/12/17 0000 Signed Impressions: Service Date/Time: Wednesday, April 12, 2017 21:30 - CONCLUSION: Pontine encephalomalacia. Left mastoiditis. Casper Alva MD Chest X-Ray 04/08/17 0600 Signed Impressions: Service Date/Time: Saturday, April 08, 2017 05:10 - CONCLUSION: 1. Endotracheal tube and weighted feeding tube. 2. Bilateral pulmonary infiltrates. Some improvement from the prior study. Cheo Barrera Jr., MD Chest X-Ray 03/27/17 0600 Signed Impressions: Service Date/Time: Monday, March 27, 2017 02:33 - CONCLUSION: No significant interval change. Víctor Rosas MD Chest X-Ray 03/26/17 0600 Signed Impressions: Service Date/Time: Sunday, March 26, 2017 05:35 - CONCLUSION: Improving bilateral pulmonary infiltrates Víctor Rosas MD Chest X-Ray 03/25/17 1004 Signed Impressions: Service Date/Time: Saturday, March 25, 2017 10:03 - CONCLUSION: 1. Worsening bibasilar consolidation. 2. Endotracheal tube with tip at the thoracic inlet and should be advanced at least 3-4 cm. 3. Adequate placement of left jugular central line without pneumothorax. Logan Morgan MD Chest X-Ray 03/26/17 0600 Signed Impressions: Service Date/Time: Sunday, March 26, 2017 05:35 - CONCLUSION: Improving bilateral pulmonary infiltrates Víctor Rosas MD Lower Extremity Ultrasound 03/25/17 0000 Signed Impressions: Service Date/Time: Saturday, March 25, 2017 22:17 - CONCLUSION: No evidence of DVT. Víctor Rosas MD CT Angiography 03/21/17 0000 Signed Impressions: Service Date/Time: March 00:33 - CONCLUSION: No evidence of pulmonary embolism is identified. Mild atelectasis left lung base. Fluid or phlegm within the trachea. Milo Muhammad MD Brain MRI 03/20/17 0000 Signed Impressions: Service Date/Time: Monday, March 20, 2017 16:11 - CONCLUSION: Abnormal appearance to the ruthy with some extension into the cortical spinal tracts of the posterior thalamus was bilaterally. 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 Cheo Martínez MD Abdomen X-Ray 03/20/17 0000 Signed Impressions: Service Date/Time: Monday, March 20, 2017 18:12 - CONCLUSION: Tip of the Dobbhoff tube projecting towards the pylorus. Cheo Barrera Jr., MD Abdomen Ultrasound 03/20/17 0000 Signed Impressions: Service Date/Time: Monday, March 20, 2017 11:38 - CONCLUSION: 1. Hepatosplenomegaly without focal lesion. 2. Probable sludge within the lumen of the gallbladder. No intrahepatic duct. Cheo Martínez MD Shoulder X-Ray 03/02/17 1404 Signed Impressions: Service Date/Time: Thursday, March 02, 2017 15:18 - CONCLUSION: No evidence of recent bony injury. Deformity of the lateral left clavicle suggests old healed trauma. Cheo Martínez MD Maxillofacial CT 03/02/17 1342 Signed Impressions: Service Date/Time: Thursday, March 02, 2017 14:52 - CONCLUSION: Negative CT of the facial bones. Cheo Martínez MD Head CT 03/02/17 1342 Signed Impressions: Service Date/Time: Thursday, March 02, 2017 14:52 - CONCLUSION: 1. Prominent scalp swelling left frontal and parietal region. No skull fracture seen. 2. Intracranial contents are intact without acute finding. Cheo Martínez MD Chest CT 03/02/17 1342 Signed Impressions: Service Date/Time: Thursday, March 02, 2017 15:04 - CONCLUSION: 1. Abnormal appearance of the lateral left clavicle suggesting a combination of acute and chronic bony injury. Fracture lucencies without bridging callus is seen the region of the coracoid process. 2. The lungs are clear. No evidence of pneumothorax. 3. Moderate size hiatus hernia. Cheo Martínez MD Cervical Spine CT 03/02/17 1342 Signed Impressions: Service Date/Time: Thursday, March 02, 2017 14:52 - CONCLUSION: Negative CT cervical spine. Cheo Martínez MD Abdomen/Pelvis CT 03/02/17 1342 Signed Impressions: Service Date/Time: Thursday, March 02, 2017 15:04 - CONCLUSION: Moderate size hiatus hernia. Scattered small sigmoid diverticula. Otherwise negative exam. Cheo Martínez MD Chest X-Ray 03/25/17 1004 Signed Impressions: Service Date/Time: Saturday, March 25, 2017 10:03 - CONCLUSION: 1. Worsening bibasilar consolidation. 2. Endotracheal tube with tip at the thoracic inlet and should be advanced at least 3-4 cm. 3. Adequate placement of left jugular central line without pneumothorax. Logan Morgan MD Chest X-Ray 03/23/17 0000 Signed Impressions: Service Date/Time: Thursday, March 23, 2017 14:27 - CONCLUSION: 1. Feeding tube in place with what appears to be a loop in the hypopharynx. 2. Bibasilar areas of consolidation or atelectasis. Casper Vargas MD Physical Exam GENERAL: Sedated on the vent SKIN: Warm and dry. No generalized rash. HEENT: Pupils equal round and reactive. Orally intubated. Poor dentition. NECK: Supple. CARDIOVASCULAR: Regular rate and rhythm without murmurs, gallops, or rubs. RESPIRATORY: Coarse rhonchi bilateral. GASTROINTESTINAL: Abdomen mildly distended, bowel sounds are present and normoactive, no reaction to palpation MUSCULOSKELETAL: Lower extremities without clubbing, cyanosis. NEUROLOGICAL: Unable to fully assess. : Johns cath in place. LINE: PIV no evidence of infection IMPRESSION Sepsis syndrome, due to PNA - on vent - has MDR Acinetobacter MDR Acinetobacter PNA - S/P Rx Recurrent fevers Septic shock, BP better Known ETOH abuse Encephalopathy - sepsis, ETOH, CPM Respiratory failure, not tolerating CPAP Diarrhea, C diff negative Nuvia in UC, repeat UA normal, without Rx RECOMMENDATION Repeat C/S Follow C/S Follow temps Monitor progress If temps again, start Unasyn and IV vanco and Cefepime D/W RN Dr Lopez coverng this weekendDid not get extubated Has not been doing well with CPAP Had seizure today Daughter now wants full code Trach and PEG being discussed Not on pressors Repeat UA normal Repeat sputum with normal derrick Antibiotics None Lines PIV Past Medical History ETOHism Allergies: Coded Allergies: PEANUTS (Unverified Allergy, Severe, 03/02/17) *MDRO Multi-Drug Resistant Organism (Verified Adverse Reaction, Unknown, ) MRSA PCR screen POSITIVE - 03/02/17 MDR Acinetobacter (sputum) - 03/25/17 Objective Objective . Vital Signs Date Time Temp Pulse Resp B/P Pulse Ox O2 Delivery O2 Flow Rate FiO2 04/12/17 11:18 95 35 04/12/17 10:00 111 04/12/17 08:51 35 04/12/17 08:00 103 04/12/17 08:00 35 04/12/17 08:00 99.5 99 18 111/72 98 04/12/17 07:50 96 35 04/12/17 06:00 105 04/12/17 04:00 106 18 102/66 92 04/12/17 04:00 35 04/12/17 04:00 106 04/12/17 03:57 92 35 04/12/17 02:00 101 04/12/17 01:41 18 04/12/17 00:05 94 35 04/12/17 00:00 104 04/12/17 00:00 35 04/12/17 00:00 104 19 97/62 94 04/11/17 22:00 111 04/11/17 21:36 92 35 04/11/17 20:00 115 04/11/17 20:00 35 04/11/17 20:00 111 19 111/74 04/11/17 18:00 93 04/11/17 16:36 94 35 04/11/17 16:00 35 04/11/17 16:00 99.9 109 18 102/64 94 04/11/17 16:00 95 04/11/17 04/11/17 04/12/17 15:00 23:00 07:00 Intake Total 569 ml 310 ml 246 ml Output Total 695 ml 200 ml 450 ml Balance -126 ml 110 ml -204 ml Intake Oral 0 ml 0 ml IV Total 319 ml 132 ml 105 ml Tube Feeding 250 ml 178 ml 141 ml Output Urine Total 620 ml 200 ml 150 ml Stool Total 75 ml 300 ml . Laboratory Tests Test 04/12/17 08:05 White Blood Count 15.3 TH/MM3 Red Blood Count 2.57 MIL/MM3 Hemoglobin 8.4 GM/DL Hematocrit 26.0 % Mean Corpuscular Volume 101.0 FL Mean Corpuscular Hemoglobin 32.8 PG Mean Corpuscular Hemoglobin 32.5 % Concent Red Cell Distribution Width 16.6 % Platelet Count 172 TH/MM3 Mean Platelet Volume 8.2 FL Neutrophils (%) (Auto) 80.8 % Lymphocytes (%) (Auto) 11.3 % Monocytes (%) (Auto) 5.7 % Eosinophils (%) (Auto) 1.4 % Basophils (%) (Auto) 0.8 % Neutrophils # (Auto) 12.4 TH/MM3 Lymphocytes # (Auto) 1.7 TH/MM3 Monocytes # (Auto) 0.9 TH/MM3 Eosinophils # (Auto) 0.2 TH/MM3 Basophils # (Auto) 0.1 TH/MM3 CBC Comment DIFF FINAL Differential Comment Laboratory Tests Test 04/12/17 08:05 Sodium Level 146 MEQ/L Potassium Level 3.4 MEQ/L Chloride Level 110 MEQ/L Carbon Dioxide Level 26.9 MEQ/L Anion Gap 9 MEQ/L Blood Urea Nitrogen 24 MG/DL Creatinine 0.56 MG/DL Estimat Glomerular Filtration 149 ML/MIN Rate Random Glucose 133 MG/DL Calcium Level 7.8 MG/DL Phosphorus Level 2.4 MG/DL Magnesium Level 2.0 MG/DL Total Bilirubin 1.6 MG/DL Aspartate Amino Transf 127 U/L (AST/SGOT) Alanine Aminotransferase 99 U/L (ALT/SGPT) Alkaline Phosphatase 398 U/L Total Protein 5.4 GM/DL Albumin 1.8 GM/DL Imaging Chest X-Ray 04/08/17 0600 Signed Impressions: Service Date/Time: Saturday, April 08, 2017 05:10 - CONCLUSION: 1. Endotracheal tube and weighted feeding tube. 2. Bilateral pulmonary infiltrates. Some improvement from the prior study. Cheo Barrera Jr., MD Chest X-Ray 03/27/17 0600 Signed Impressions: Service Date/Time: Monday, March 27, 2017 02:33 - CONCLUSION: No significant interval change. Víctor Rosas MD Chest X-Ray 03/26/17 0600 Signed Impressions: Service Date/Time: Sunday, March 26, 2017 05:35 - CONCLUSION: Improving bilateral pulmonary infiltrates Víctor Rosas MD Chest X-Ray 03/25/17 1004 Signed Impressions: Service Date/Time: Saturday, March 25, 2017 10:03 - CONCLUSION: 1. Worsening bibasilar consolidation. 2. Endotracheal tube with tip at the thoracic inlet and should be advanced at least 3-4 cm. 3. Adequate placement of left jugular central line without pneumothorax. Logan Morgan MD Chest X-Ray 03/26/17 0600 Signed Impressions: Service Date/Time: Sunday, March 26, 2017 05:35 - CONCLUSION: Improving bilateral pulmonary infiltrates Víctor Rosas MD Lower Extremity Ultrasound 03/25/17 0000 Signed Impressions: Service Date/Time: Saturday, March 25, 2017 22:17 - CONCLUSION: No evidence of DVT. Víctor Rosas MD CT Angiography 03/21/17 0000 Signed Impressions: Service Date/Time: March 00:33 - CONCLUSION: No evidence of pulmonary embolism is identified. Mild atelectasis left lung base. Fluid or phlegm within the trachea. Milo Muhammad MD Brain MRI 03/20/17 0000 Signed Impressions: Service Date/Time: Monday, March 20, 2017 16:11 - CONCLUSION: Abnormal appearance to the ruthy with some extension into the cortical spinal tracts of the posterior thalamus was bilaterally. 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 Cheo Martínez MD Abdomen X-Ray 03/20/17 0000 Signed Impressions: Service Date/Time: Monday, March 20, 2017 18:12 - CONCLUSION: Tip of the Dobbhoff tube projecting towards the pylorus. Cheo Barrera Jr., MD Abdomen Ultrasound 03/20/17 0000 Signed Impressions: Service Date/Time: Monday, March 20, 2017 11:38 - CONCLUSION: 1. Hepatosplenomegaly without focal lesion. 2. Probable sludge within the lumen of the gallbladder. No intrahepatic duct. Cheo Martínez MD Shoulder X-Ray 03/02/17 1404 Signed Impressions: Service Date/Time: Thursday, March 02, 2017 15:18 - CONCLUSION: No evidence of recent bony injury. Deformity of the lateral left clavicle suggests old healed trauma. Cheo Martínez MD Maxillofacial CT 03/02/17 1342 Signed Impressions: Service Date/Time: Thursday, March 02, 2017 14:52 - CONCLUSION: Negative CT of the facial bones. Cheo Martínez MD Head CT 03/02/17 1342 Signed Impressions: Service Date/Time: Thursday, March 02, 2017 14:52 - CONCLUSION: 1. Prominent scalp swelling left frontal and parietal region. No skull fracture seen. 2. Intracranial contents are intact without acute finding. Cheo Martínez MD Chest CT 03/02/17 1342 Signed Impressions: Service Date/Time: Thursday, March 02, 2017 15:04 - CONCLUSION: 1. Abnormal appearance of the lateral left clavicle suggesting a combination of acute and chronic bony injury. Fracture lucencies without bridging callus is seen the region of the coracoid process. 2. The lungs are clear. No evidence of pneumothorax. 3. Moderate size hiatus hernia. Cheo Martínez MD Cervical Spine CT 03/02/17 1342 Signed Impressions: Service Date/Time: Thursday, March 02, 2017 14:52 - CONCLUSION: Negative CT cervical spine. Cheo Martínez MD Abdomen/Pelvis CT 03/02/17 1342 Signed Impressions: Service Date/Time: Thursday, March 02, 2017 15:04 - CONCLUSION: Moderate size hiatus hernia. Scattered small sigmoid diverticula. Otherwise negative exam. Cheo Martínez MD Chest X-Ray 03/25/17 1004 Signed Impressions: Service Date/Time: Saturday, March 25, 2017 10:03 - CONCLUSION: 1. Worsening bibasilar consolidation. 2. Endotracheal tube with tip at the thoracic inlet and should be advanced at least 3-4 cm. 3. Adequate placement of left jugular central line without pneumothorax. Logan Morgan MD Chest X-Ray 03/23/17 0000 Signed Impressions: Service Date/Time: Thursday, March 23, 2017 14:27 - CONCLUSION: 1. Feeding tube in place with what appears to be a loop in the hypopharynx. 2. Bibasilar areas of consolidation or atelectasis. Casper Vargas MD Physical Exam GENERAL: Sedated on the vent SKIN: Warm and dry. No generalized rash. HEENT: Pupils equal round and reactive. Orally intubated. Poor dentition. A lot of oral secretions NECK: Supple, nontender, no meningeal signs. Previous line site ok CARDIOVASCULAR: Regular rate and rhythm without murmurs, gallops, or rubs. RESPIRATORY: Coarse rhonchi GASTROINTESTINAL: Abdomen mildly distended, bowel sounds are present and normoactive, no reaction to palpation MUSCULOSKELETAL: Lower extremities without clubbing, cyanosis. Developing some pedal edema. No joint effusion. NEUROLOGICAL: Awake and focusing : Johns cath in place, urine looks better LINE: PIV no evidence of infection Assessment & Plan Assessment & Plan Remarks IMPRESSION Sepsis syndrome, due to PNA - on vent - has MDR Acinetobacter MDR Acinetobacter PNA - S/P Rx Recurrent fevers. Low grade. Septic shock, BP better Known ETOH abuse Encephalopathy - sepsis, ETOH, CPM Respiratory failure, not tolerating CPAP Diarrhea, C diff negative Nuvia in UC, repeat UA normal, without Rx RECOMMENDATION Follow C/S Follow temps Monitor progress D/W RN Alok Lopez MD April 13, 2017 17:35
--- NOTE | 2017-04-13 20:19 | MG ---
cc: TAMI SERVIN M.D. Lab No: [id number] Date: Age: 61 Sex: M Race: ROOM: [id number]. Intubated with hyperventilation. Eyes open during EEG. Unresponsive. Not following commands. MRI shows central pontine myelinolysis. CURRENT MEDICATIONS: 1. Keppra. 2. Dilantin was added after the EEG. DESCRIPTION OF RECORD: There are some high amplitude spike and wave discharges accompanying his twitching of the eyebrows in a paroxysmal fashion. A lot of muscle artifact as well. There are times where there are more frequent and continuous states, the left eye twitches more and then it becomes diffuse and then slows down again. IMPRESSION: Abnormal EEG due to ongoing seizure-like activity in this recording. Of note, the patient was loaded with Dilantin after the study and continued on his Keppra. Follow-up EEG is indicated. MD SOPHIA Baig/HUBERT /7:55 PM /8:17 PM
[2017-04-13] MEDS: ACETAMINOPHEN 325 MG TAB PO PRN (21:53)
[2017-04-14] VITALS (44 sets, daily range): BP systolic 91–113; BP diastolic 62–75; PULSE 92–112; RESP 18–25; TEMP 98.9–101.2; O2SAT 92–100
[2017-04-14] MEDS: RESP: ALBUTEROL 2.5 MG/IPRATROPIUM 0.5 MG NEB (SCH) NEB ×7 (00:03→23:33)
[2017-04-14] MEDS: FREE WATER G-TUBE SCH ×4 (00:42→16:47)
[2017-04-14] MEDS: INSULIN NovoLIN REGULAR SUPPLEMENTAL SCALE SQ SCH ×6 (03:50→20:00)
[2017-04-14] MEDS: HEPARIN SODIUM - SQ 10,000 UNITS/ML VIAL SQ SCH ×3 (04:48→22:41)
[2017-04-14] MEDS: MIDODRINE 5 MG TAB PO SCH ×3 (04:48→22:41)
[2017-04-14] MEDS: ACETAMINOPHEN 325 MG TAB PO PRN ×2 (04:49→22:43)
[2017-04-14 06:21] LABS: HEMATOCRIT 29.5 % (39.0-51.0); MEAN CELL VOLUME 104.7 FL (80.0-100.0); MEAN CORPUSCULAR HEMOGLOBIN 33.5 PG (27.0-34.0); PLATELET COUNT 150 TH/MM3 (150-450); RED BLOOD COUNT 2.81 MIL/MM3 (4.50-5.90); RED CELL DISTRIBUTION WIDTH 16.9 % (11.6-17.2); REVIEW FLAG FINAL; WHITE BLOOD COUNT 16.2 TH/MM3 (4.0-11.0)
[2017-04-14 06:36] LABS: BICARBONATE 26.1 MEQ/L (21.0-32.0); POTASSIUM 3.3 MEQ/L (3.5-5.1)
[2017-04-14] MEDS: CHLORHEXIDINE 0.12% (ORAL KIT) 15 ML CUP MT SCH ×2 (08:00→22:40)
[2017-04-14] MEDS: LACTOBACILLUS ACIDOPHILUS TAB PO SCH ×3 (09:00→16:47)
[2017-04-14] MEDS: SODIUM CHLORIDE 0.9% FLUSH 10 ML FLUSH IVF SCH (09:00)
[2017-04-14] MEDS: THIAMINE HCL 100 MG TAB PO SCH (09:00)
[2017-04-14] MEDS: SODIUM CHLORIDE 0.9% FLUSH 10 ML FLUSH IV FLUSH SCH ×2 (09:00→22:42)
[2017-04-14] MEDS: RIFAXIMIN 550 MG TAB PO SCH ×2 (09:00→22:42)
[2017-04-14] MEDS: LACTULOSE SYRUP 20 GM/30 ML CUP PO SCH ×2 (10:03→22:42)
[2017-04-14] MEDS: MUPIROCIN 2% OINT 1 APPLIC/GM SYR EACH NARE SCH ×2 (10:03→22:40)
[2017-04-14] MEDS: PANTOPRAZOLE SODIUM 40 MG VIAL IV SCH (10:03)
[2017-04-14] MEDS: levETIRAcetam INJ 500 MG in SODIUM CHLORIDE 0.9% INJ 100 ML IV SCH ×2 (10:03→22:42)
[2017-04-14] MEDS: ARTIFICIAL TEARS OPTH SOLN 15 ML BTL EACH EYE SCH ×3 (10:04→17:16)
[2017-04-14] MEDS: NYSTATIN 100,000 U/GM PWD 15 GM BTL TOPICAL SCH ×2 (10:07→22:42)
--- NOTE | 2017-04-14 10:12 | HHI.GIFU ---
GI Follow-up Note Consult Follow-up Subjective: Patient laying in bed comfortably, intubated, no seizure activity today.Abdominal X-ray noted, no obstruction.Consent pending for PEG Objective: PHYSICAL EXAMINATION: Vitals signs stable No fever Vital Signs Date Time Temp Pulse Resp B/P Pulse Ox O2 Delivery O2 Flow Rate FiO2 04/14/17 09:14 97 35 04/14/17 09:00 96 18 102/66 97 04/14/17 08:30 96 18 102/67 96 04/14/17 08:00 99.7 97 18 105/67 96 04/14/17 08:00 35 04/14/17 08:00 102 04/14/17 07:30 97 20 106/69 95 04/14/17 07:00 99 18 103/66 96 04/14/17 06:30 97 20 100/67 97 04/14/17 06:24 97 22 101/68 97 04/14/17 06:00 100 18 105/67 97 04/14/17 06:00 100 04/14/17 05:30 101 19 100/63 95 04/14/17 05:00 105 19 98/64 97 04/14/17 04:30 106 19 99/65 96 04/14/17 04:03 98 35 04/14/17 04:00 100 04/14/17 04:00 35 04/14/17 04:00 100 19 107/69 100 04/14/17 04:00 100.2 100 19 107/69 100 04/14/17 03:30 98 18 98/65 96 04/14/17 03:00 100 18 95/66 96 04/14/17 02:30 97 18 96/63 95 HEENT: Pupils round and reactive to light; normocephalic; intubated NECK: Neck is supple, no JVD, no lymphadenopathy. CHEST: Chest is clear to auscultation and percussion. CARDIAC: Regular rate and rhythm with no murmur gallop or rubs. ABDOMEN: Soft, mild distension, nontender; no hepatosplenomegaly; bowel sounds are present in all four quadrants. EXTREMITIES: No clubbing, cyanosis, or edema. SKIN: Normal; no rash; no jaundice. 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 Available Data (labs, X- Rays, Procedues) : Laboratory Tests Test 04/13/17 04/14/17 05:47 05:31 White Blood Count 15.2 TH/MM3 16.2 TH/MM3 Red Blood Count 2.71 MIL/MM3 2.81 MIL/MM3 Hemoglobin 9.0 GM/DL 9.4 GM/DL Hematocrit 27.5 % 29.5 % Mean Corpuscular Volume 101.5 FL 104.7 FL Mean Corpuscular Hemoglobin 33.3 PG 33.5 PG Mean Corpuscular Hemoglobin 32.8 % 32.0 % Concent Red Cell Distribution Width 16.3 % 16.9 % Platelet Count 147 TH/MM3 150 TH/MM3 Mean Platelet Volume 8.9 FL 9.3 FL Neutrophils (%) (Auto) 76.3 % Lymphocytes (%) (Auto) 13.9 % Monocytes (%) (Auto) 7.5 % Eosinophils (%) (Auto) 1.6 % Basophils (%) (Auto) 0.7 % Neutrophils # (Auto) 11.6 TH/MM3 Lymphocytes # (Auto) 2.1 TH/MM3 Monocytes # (Auto) 1.1 TH/MM3 Eosinophils # (Auto) 0.2 TH/MM3 Basophils # (Auto) 0.1 TH/MM3 CBC Comment DIFF FINAL Differential Comment Sodium Level 148 MEQ/L 146 MEQ/L Potassium Level 3.4 MEQ/L 3.3 MEQ/L Chloride Level 110 MEQ/L 111 MEQ/L Carbon Dioxide Level 27.1 MEQ/L 26.1 MEQ/L Anion Gap 11 MEQ/L 9 MEQ/L Blood Urea Nitrogen 22 MG/DL 21 MG/DL Creatinine 0.43 MG/DL 0.49 MG/DL Estimat Glomerular Filtration 203 ML/MIN 174 ML/MIN Rate Random Glucose 86 MG/DL 119 MG/DL Calcium Level 8.1 MG/DL 7.9 MG/DL Phosphorus Level 3.6 MG/DL Magnesium Level 2.0 MG/DL Phenytoin (Dilantin) Level 6.7 MCG/ML ASSESSMENT/PLAN: 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 Thank you for this consult. Entered by: Brigitte Goodrich MD April 14, 2017 10:12
[2017-04-14 12:03] LABS: INTERNATIONAL NORMALIZED RATIO 1.2 RATIO; PROTHROMBIN TIME - PATIENT 12.9 SEC (9.8-11.6)
[2017-04-14] MEDS: LORazepam 2 MG/ML VIAL IV PUSH PRN (12:04)
--- NOTE | 2017-04-14 14:13 | HHI.CCPN ---
Subjective Remarks/Hospital Course This is a 61-year-old male with a past history of alcohol abuse and a prior admission in 2015 for severe life-threatening hyponatremia at that time with a serum sodium of 98. He presents today with what he states is a 13 day history of worsening fatigue and weakness. He is very altered and is very difficult to understand the patient. What I can understand from him, is that at some point during these 13 days he has fallen and hit his face. Otherwise he states he lays on the couch, and has not gotten not much. He states he drinks 1 beer in the morning, and 1 beer in the afternoon. He does endorse taking some Xanax to help him sleep. He denies other drug use. He denies chest pain, shortness of breath, fever, chills, nausea, vomiting, abdominal pain. It is very difficult to get him to answer anymore questions about his medical history. His speech is very slurred and he is trying to talk about how he misses his daughter. Emergency department he was found to have a serum sodium of 99, a bilirubin of 8.9, lactate of 9.8, ammonia of 60, CK of 7000, elevated troponin of 4.9 with a normal MB ratio, creatinine 1.5, serum bicarbonate of 13. His white count is 12 , platelets 112. INR 1.9. His MELD calculates at 26. 4/2: Sodium level rapidly corrected overnight, likely secondary to appropriate correction of severe life-threatening dehydration. NS fluids changed to 1/2NS and correction slowed down significantly. sodium up to 130 this AM. CK downtrending. however, patient remains severely hypotensive requiring Levophed to maintain a map > 65 mmHg. This AM, serum K 1.6 (confirmed). started replacement with 200meq KCl and recheck K. 03/04: persists in vasoplegic distributive shock. afebrile. no evidence of infection. wbc downtrending. persists with severe life-threatening electrolyte derangements. passed swallow eval for nectar thick liquids. sodium stable at 131. ck downtrending. 03/05: persists in distributive shock. echo yesterday with EF 30%, globally decreased function. milrinone added yesterday with improvement in vasopressor requirement. still with multiple electrolyte abnormalities despite very aggressive replacement. very poor appetite. sodium stable at 131, which appears to be around baseline for him, looking back at prior records. also became agitated and delirious yesterday, likely secondary to etoh withdraw. started on Ativan and Librium. 03/06: electrolyte derangements persist. placed on continuous NaPhos infusion x 24h due to severe life-threatening hypophosphatemia. serial K, phos checks. weaning off levophed, milrinone persists. still poor appetite. sodium jumped from 132 to 139, but no significant mental status change, and we did not increase sodium load. 03/07: still requiring high electrolyte replacement. milrinone weaned to 0.375 mcg /kg/min overnight. still doing well with that. delirium persists. 03/08 Remains on milrinone. Electrolyte improving. Remains very lethargic, intermittently follows commands 03/09: Continues to be lethargic but wakes up follows some commands. Remains on milrinone will DC today. T max 100.1, urine output adequate sodium is 143 03/10: More awake alert, ate 50% of break fast. Will DC Dobhoff. Discontinue arterial and central lines. Delirium also improved, remains weak 03/11: doing much better this morning. no complaints. still with poor appetite. electrolytes improved. 03/20: We consulted for respiratory failure. Patient was last seen in room 1415 CMP receiving oral cares and became acutely hypoxic saturations 82% with coarse breath sounds. Halicat called. Patient was placed on a Venturi mask 50 % with desaturations to the mid 90s. He received Solu-Medrol 20 mg IV 1, Lasix 40 mg IV 1 and was transferred IM [facility] 521. Hemodynamically stable. Poor mentation 03/25: Reconsulted due to respiratory failure. Patient with gurgling/ transmitted upper airway sounds. Respiration the 50s. Decision made to orotracheally intubate. Noted to have been febrile with increased O2 course over the past 48 hours. 03/26: Afebrile. Requiring Nimbex drip for ventilator synchrony. Decreased urine output noted. Hemoglobin decreased likely dilutional. Tolerating tube feeding. Electrolytes been replaced. 03/27: Tmax 100.9. Currently 97.2. +6 L past 24 hours. Hemoglobin 8 transfuse overnight. Potassium 3. We'll discontinue Nimbex drip for vent synchrony today. 03/28: Afebrile. Negative fluid balance past 24 hours. Hemoglobin currently 9. Potassium 3.0. Currently on sedation vacation positive gag and otherwise unresponsive. 03/29: Tmax 103. Currently afebrile. Not tolerating tube feeds. Remains on Kiran-Synephrine. Did not tolerate sedation vacation back on Versed at 5 mg an hour fentanyl drip at 100 mcg an hour. One bowel movement. 03/30 Tube feeds remain on hold. On neosynephrine 40 mcg/min, RN states she has been weaning. Having BMs. On Versed 8 mg/hr and fentanyl 100 mcg/hr. 03/31 Off versed. Remains on fentanyl 100 mcg/hr. Having hiccups. Still on neosynephrine 40 mcg/min. Tolerating trickle feeds. Had 2 bowel movements 04/01: no meaningful change. still requires fentanyl for sedation. still on low- dose vasopressors. 04/02: no changes. still on levo @ 7 mcg/min. unable to wean off fentanyl due to tachycardia and tachypnea. 04/03: Off all sedation. On low-dose norepinephrine. Essentially unresponsive on the ventilator. Plan for likely withdrawal of care tomorrow 04/04: Off all sedation. Off all vasopressors. According to overnight RN was following commands. Will open eyes but not following commands this AM. 04/05 No events overnight. Afebrile On no sedation. 04/06: Resting comfortably in bed. Eyes are open. Moving head back and forth continuously. Weakly following commands with his upper and lower extremities. 04/07: Low-grade temperatures overnight. 99.8. Eyes are open. Moving back and forth. Positive BM. Continues to be following commands. 04/08 Patient remains intubated on no sedation awake and follows commands. Tmax 100.8 04/09 Patient remains intubated, tolerated CPAP all day and had good responses in UO with Bumex yesterday. Afebrile. 04/10: Tmax 99.1. Went back on set rate ventilation yesterday. Will attempt PSV trials throughout the day with goal to attempt extubation tomorrow. 04/11: Tmax 100.2. Currently 100.1. Did not tolerate weaning parameters with NIF -9 and unacceptable RSBI. Patient is arousable and follows commands eyes open 04/12: Omayra care reports tonic-clonic seizure activity this AM. Heart rate in the 140s during episode with violent shaking. On examination, patient's eyes are open and at baseline except currently not following commands. 04/13: had 2 seizures this morning, both resolved without medication interventions. Dr. Fabrizio navas'd at bedside earlier and ordered Cerebyx load. no other changes. plan for trach/peg next week Subjective: 04/14: still having breakthrough seizures on repeat EEG despite Cerebyx and Keppra. plan for PEG tomorrow. Objective Vital Signs Date Time Temp Pulse Resp B/P Pulse Ox O2 Delivery O2 Flow Rate FiO2 04/14/17 13:00 99 18 92/62 96 04/14/17 12:30 100.8 04/14/17 12:14 35 Intake and Output 04/13/17 04/13/17 04/13/17 07:59 15:59 23:59 Intake Total 909 ml 1093 ml 440 ml Output Total 200 ml 800 ml 600 ml Balance 709 ml 293 ml -160 ml Result Diagram: 04/14/17 0531 04/14/17 0531 Imaging Last Impressions Chest X-Ray 04/08/17 0600 Signed Impressions: Service Date/Time: Saturday, April 08, 2017 05:10 - CONCLUSION: 1. Endotracheal tube and weighted feeding tube. 2. Bilateral pulmonary infiltrates. Some improvement from the prior study. Cheo Barrera Jr., MD Abdomen X-Ray 04/08/17 0000 Signed Impressions: Service Date/Time: Saturday, April 08, 2017 23:55 - CONCLUSION: Dobbhoff tube coiled in the stomach. Cheo Barrera Jr., MD Head Magnetic Resonance Angiography 03/28/17 0000 Signed Impressions: Service Date/Time: March 17:22 - CONCLUSION: Unremarkable examination. Bety Castillo MD Brain MRI 03/28/17 0000 Signed Impressions: Service Date/Time: March 17:22 - CONCLUSION: 1. 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 Small subacute ischemic bilateral thalamic infarcts. 2. There has been no significant change when compared to the prior exam. Yinka Harman MD Lower Extremity Ultrasound 03/25/17 0000 Signed Impressions: Service Date/Time: Saturday, March 25, 2017 22:17 - CONCLUSION: No evidence of DVT. Víctor J. Siragusa, MD CT Angiography 03/21/17 0000 Signed Impressions: Service Date/Time: March 00:33 - CONCLUSION: No evidence of pulmonary embolism is identified. Mild atelectasis left lung base. Fluid or phlegm within the trachea. Milo Muhammad MD Abdomen Ultrasound 03/20/17 0000 Signed Impressions: Service Date/Time: Monday, March 20, 2017 11:38 - CONCLUSION: 1. Hepatosplenomegaly without focal lesion. 2. Probable sludge within the lumen of the gallbladder. No intrahepatic duct. Cheo Martínez MD Shoulder X-Ray 03/02/17 1404 Signed Impressions: Service Date/Time: Thursday, March 02, 2017 15:18 - CONCLUSION: No evidence of recent bony injury. Deformity of the lateral left clavicle suggests old healed trauma. Cheo Martínez MD Maxillofacial CT 03/02/17 1342 Signed Impressions: Service Date/Time: Thursday, March 02, 2017 14:52 - CONCLUSION: Negative CT of the facial bones. Cheo Martínez MD Head CT 03/02/17 1342 Signed Impressions: Service Date/Time: Thursday, March 02, 2017 14:52 - CONCLUSION: 1. Prominent scalp swelling left frontal and parietal region. No skull fracture seen. 2. Intracranial contents are intact without acute finding. Cheo Martínez MD Chest CT 03/02/17 1342 Signed Impressions: Service Date/Time: Thursday, March 02, 2017 15:04 - CONCLUSION: 1. Abnormal appearance of the lateral left clavicle suggesting a combination of acute and chronic bony injury. Fracture lucencies without bridging callus is seen the region of the coracoid process. 2. The lungs are clear. No evidence of pneumothorax. 3. Moderate size hiatus hernia. Cheo Martínez MD Cervical Spine CT 03/02/17 1342 Signed Impressions: Service Date/Time: Thursday, March 02, 2017 14:52 - CONCLUSION: Negative CT cervical spine. Cheo Martínez MD Abdomen/Pelvis CT 03/02/17 1342 Signed Impressions: Service Date/Time: Thursday, March 02, 2017 15:04 - CONCLUSION: Moderate size hiatus hernia. Scattered small sigmoid diverticula. Otherwise negative exam. Cheo Martínez MD Objective Remarks GENERAL: 61-year-old chronically ill appearing male, currently critically ill, orotracheally intubated. HEENT: Healing abrasion left side scalp. TIMOTHY. Scleral icterus. Very poor dentition. NECK: Trachea Midline RESP: Coarse breath sounds bilaterally. Few wheezes. CARDIOVASCULAR: Tachycardia, RR. ABDOMEN: Slightly distended but soft, bowel sounds present, tolerating tube feeds. : Johns in place with conrad urine output. mild/moderate scrotal edema. MUSCULOSKELETAL: No obvious deformity. 1+ edema all extremities NEUROLOGICAL: + gag and cough. Opens eyes and weakly following commands with upper and lower extremities. 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 He is persistently febrile, though with his midbrain demyelination, this may be central fevers in origin. we will send pro-calcitonin to assess the likelihood of infectious etiology of the source of the fever. Neuro/Psych: Osmotic demyelination syndrome Acute toxic metabolic encephalopathy secondary to hypercarbic respiratory failure Alcohol dependence History of EtOH induced seizure withdrawal Chronic benzodiazepine use Bilateral thalamic CVA Off all sedation oxycodone 5 mg every 4 hours as needed for pain Zyprexa discontinued MRI 03/21 - T1/T2 prolonged with sparing of this central appears final fibers. 2 small spots in the posterior central spinal tract consistent with Osmotic demyelination syndrome. ODS most likely from correction of Na, with underlying alcoholism. MRI brain 03/28 revealed subacute bilateral thalamic lacunar infarcts, CPM. CT head 03/05 revealed no acute intracranial findings Continue thiamine Seen by neurology/Dr. Mazariegos. EEG with persistent seizures. continue Keppra 500mg BID and Cerebyx. Neurology following. Respiratory: Acute hypoxemic hypercapnic respiratory failure PRVC 18/550/1.2//35 daily PSV trials. lasted for 6 hours today before failing for tachypnea. Ventilator bundle Bronchodilator therapy every 4 hours and as needed SBT daily as pablo. Cardiovascular: Chronic Systolic heart failure Echocardiogram 03/04 revealed EF 35-40%. Mild mR. Left atrium dilated. JANE 33 mmHg TSH within normal limits 0.8 s/p hydrocortisone. Continue midodrine 10 mg 3 times Monitor HR and BP keep MAP>65mmHg Renal/FEN: Acute Kidney Injury- Rhabdomyolysis- resolved ODS-see neuro Hypokalemia Hypernatremia Monitor renal function, I/O's, electrolytes replacement per protocol. daily bmp GI: EtOH cirrhosis Hyperammonemia Hiatal hernia Sigmoid diverticulosis History of umbilical hernia repair Hypoalbuminemia Continue tub feeds Jevity 1.5 with goal rate 60ml/hr On Xifaxan 550 twice a day/lactulose 30 twice a day. LFT is elevated. Ultrasound liver-hepatosplenomegaly. Sludge in gallbladder On IV Protonix d/c Reglan. Heme: Leukocytosis Macrocytic anemia Monitor CBC. No indications for transfusion of blood proximally postop B12 1452, Folate 15.2. TSH 0.8. ID: Likely aspiration pneumonia Escherichia coli UTI 03/11 - completed therapy Acinetobacter pneumonia Pertinent cultures 04/08 - blood cultures 2 - no growth - sputum - no growth 04/05 - urine -C GLABRATA AND C. ALBICANS 03/29 - blood cultures 2 - NGTD 03/25 - sputum --Acinetobacter. 03/25 - urine - NGTD 03/25 - blood cultures 2 -no growth 03/22 - urine - no growth 03/22 - blood cultures 2 - negative 03/20 - blood cultures 2 - no growth 03/11 - urine - Escherichia coli 03/02 - blood cultures 2 - no growth Pancultured 04/08 ( Blood cx x 2 sets, sputum, UA with cx if needed) Followed by Dr. Lisa/ID. s/p Unasyn. Off Flagyl po 03/24 Check procalcitonin level. Endocrine: Hyperglycemia of critical illness History of hypothyroidism SSI with Accu-Cheks every 4 hours to maintain euglycemia MSK: History of old left clavicle fracture PT/OT evaluate and treat Access Peripheral IV. Central line if indicated Prophylaxis: GI - Protonix DVT - SCD/heparin subcutaneous Palliative care is following code status changed to full code per daughter's request. Tamanna Sandhu, daughter/ HCP: from [facility] [phone] now confirmed transferred to [facility] in [place] facility ) Code status -full code Level 2 Trach/PEG next week. Full code Tu Bryant MD April 14, 2017 14:13
[2017-04-14] MEDS ORDERED: POTASSIUM PHOSPHATE MONOBASIC 500 MG TAB PO/TUBE PRN (18:00)
[2017-04-14] MEDS ORDERED: MAGNESIUM OXIDE 400 MG TAB PO PRN (18:00)
[2017-04-14] MEDS ORDERED: POTASSIUM CHLOR 40 MEQ PREMIX 100 ML IV PRN ×2 (18:00)
[2017-04-14] MEDS ORDERED: POTASSIUM CHLOR 20 MEQ PREMIX 100 ML IV PRN (18:00)
[2017-04-14] MEDS ORDERED: SODIUM PHOSPHATE INJ 30 MMOL in SODIUM CHLOR 0.9% 250 ML INJ 240 ML IV PRN (18:00)
[2017-04-14] MEDS ORDERED: POTASSIUM PHOSPHATE MONOBASIC 500 MG TAB PO PRN (18:00)
[2017-04-14] MEDS ORDERED: MAGNESIUM SULFATE INJ 2 GM in SODIUM CHLORIDE 0.9% INJ 96 ML IV PRN (18:00)
[2017-04-14] MEDS ORDERED: MAGNESIUM SULFATE INJ 4 GM in SODIUM CHLORIDE 0.9% INJ 92 ML IV PRN (18:00)
--- NOTE | 2017-04-14 20:43 | MG ---
cc: TAMI SERVIN M.D. Lab No: [id number] Date: Age: 61 Sex: M Race: This is a follow up EEG. No sedation. Does not follow given commands and was given 1 mg of Ativan at 12:01. Last EEG is abnormal for seizures. He has central pontine myelinolysis on imaging due to hyponatremia. MEDICATIONS: Keppra and dilantin for seizures. DESCRIPTION OF RECORD: The patient is not following the commands of the orthotic and prosthetic technician. He has not followed commands in the past. He has overall slowing predominantly what looks like delta wave frequency. It looks like he had some phase reversals but more in the frontal beckett. Just isolated. Improved EEG from the last one from the other day. Some eye twitching. There are some slow waves or more artifact seen but it is frontal so more likely this is an artifact. No significant driving response on photic stimulation. IMPRESSION: Significant slow background consistent with encephalopathy but some occasional phase reversals in the right frontal region as well as a possible isolated slow waves but improved from prior EEGs. Clinical correlation. MD SOPHIA Baig/HUBERT /8:31 PM /8:40 PM
[2017-04-15] VITALS (55 sets, daily range): BP systolic 87–116; BP diastolic 58–83; PULSE 93–108; RESP 18–24; TEMP 98.5–102.5; O2SAT 94–98
[2017-04-15] MEDS: FREE WATER G-TUBE SCH ×5 (00:31→22:42)
[2017-04-15] MEDS: RESP: ALBUTEROL 2.5 MG/IPRATROPIUM 0.5 MG NEB (SCH) NEB ×3 (03:45→12:39)
[2017-04-15] MEDS: INSULIN NovoLIN REGULAR SUPPLEMENTAL SCALE SQ SCH ×6 (03:58→20:00)
[2017-04-15] MEDS: MIDODRINE 5 MG TAB PO SCH ×3 (04:35→22:41)
[2017-04-15 05:11] LABS: INTERNATIONAL NORMALIZED RATIO 1.1 RATIO; PROTHROMBIN TIME - PATIENT 12.6 SEC (9.8-11.6)
[2017-04-15 05:25] LABS: AUTOMATED NEUTROPHIL # 10.2 TH/MM3 (1.8-7.7); BASOPHIL # 0.1 TH/MM3 (0-0.2); BASOPHIL % 0.4 % (0.0-2.0); EOSINOPHIL # 0.3 TH/MM3 (0-0.4); EOSINOPHIL % 2.2 % (0.0-4.0); HEMATOCRIT 29.3 % (39.0-51.0); HEMO FLAGS DIFF FINAL; LYMPH % 11.9 % (9.0-44.0); LYMPHOCYTE # 1.5 TH/MM3 (1.0-4.8); MEAN CELL VOLUME 103.2 FL (80.0-100.0); MEAN CORPUSCULAR HEMOGLOBIN 33.5 PG (27.0-34.0); MEAN CORPUSCULAR HGB CONC 32.5 % (32.0-36.0); MONO % 6.8 % (0.0-8.0); NEUT % 78.7 % (16.0-70.0); PLATELET COUNT 158 TH/MM3 (150-450); RED BLOOD COUNT 2.84 MIL/MM3 (4.50-5.90)
[2017-04-15 05:26] LABS: ALKALINE PHOSPHATASE 416 U/L (45-117); ALT (GPT) 92 U/L (12-78); ANION GAP 7 MEQ/L (5-15); AST (GOT) 138 U/L (15-37); BICARBONATE 25.9 MEQ/L (21.0-32.0); BLOOD UREA NITROGEN 19 MG/DL (7-18); CHLORIDE 113 MEQ/L (98-107); GLOMERULAR FILTRATION RATE 203 ML/MIN (>89); POTASSIUM 3.8 MEQ/L (3.5-5.1); SODIUM (NA) 146 MEQ/L (136-145); TOTAL BILIRUBIN ADULT 1.7 MG/DL (0.2-1.0)
--- NOTE | 2017-04-15 07:37 | MG ---
cc: TAMI SERVIN M.D. Lab No: [id number] Date: 04/13/2017 Age: 61 Sex: M Race: DATE OF : 1955 61 ROOM 521 With photic stimulation, intubated, awake, no sedation EEG 03/25/2017 shows severe encephalopathy. MRI abnormal ruthy with what looks like us central pontine, mild luminal lysis, admitted with encephalopathy. Hyponatremia. MEDICATIONS: Solu-Cortef Albuterol Thiamine DESCRIPTION OF RECORD: Good description of record and quite a bit of artifact initially, in the recording. alot of eye movement artifact, eyes are open with overall what looks like delta frequency with a lot of eye movement overall. Unfortunately the patient keeps his eyes open and deviated, difficult to tell if there are any abnormalities related to seizures due to that, sometimes it looks like there is some spike and slow wave activity, but overall in between the spike and slow waves that are noted a suppressed pattern, photic stimulation with no significant driving response, more artifact I believe. Difficult EEG. There is diffuse moderate, severe slowing with some recurrent pattern, interspersed between what appears to be either artifact or spike and slow waves in the case. Clinical correlation with the patient's examination. Trial of antiepileptics and repeat EEG should be considered. MD SOPHIA Baig/shyam /8:26 AM /7:29 AM
[2017-04-15] MEDS: CHLORHEXIDINE 0.12% (ORAL KIT) 15 ML CUP MT SCH ×2 (08:00→22:40)
[2017-04-15] MEDS: levETIRAcetam INJ 500 MG in SODIUM CHLORIDE 0.9% INJ 100 ML IV SCH (09:00)
[2017-04-15] MEDS: RIFAXIMIN 550 MG TAB PO SCH ×2 (09:00→22:41)
[2017-04-15] MEDS: SODIUM CHLORIDE 0.9% FLUSH 10 ML FLUSH IV FLUSH SCH ×2 (09:00→22:41)
[2017-04-15] MEDS: LACTOBACILLUS ACIDOPHILUS TAB PO SCH ×3 (09:00→17:53)
[2017-04-15] MEDS: ARTIFICIAL TEARS OPTH SOLN 15 ML BTL EACH EYE SCH ×3 (09:00→18:00)
[2017-04-15] MEDS: NYSTATIN 100,000 U/GM PWD 15 GM BTL TOPICAL SCH ×2 (09:00→22:41)
[2017-04-15] MEDS: PANTOPRAZOLE SODIUM 40 MG VIAL IV SCH (09:00)
[2017-04-15] MEDS: SODIUM CHLORIDE 0.9% FLUSH 10 ML FLUSH IVF SCH (09:00)
[2017-04-15] MEDS: MUPIROCIN 2% OINT 1 APPLIC/GM SYR EACH NARE SCH ×2 (09:00→22:40)
[2017-04-15] MEDS: THIAMINE HCL 100 MG TAB PO SCH (09:00)
[2017-04-15] MEDS: LACTULOSE SYRUP 20 GM/30 ML CUP PO SCH ×2 (09:00→22:41)
--- NOTE | 2017-04-15 09:04 | HHI.CCPN ---
Subjective Remarks/Hospital Course This is a 61-year-old male with a past history of alcohol abuse and a prior admission in 2015 for severe life-threatening hyponatremia at that time with a serum sodium of 98. He presents today with what he states is a 13 day history of worsening fatigue and weakness. He is very altered and is very difficult to understand the patient. What I can understand from him, is that at some point during these 13 days he has fallen and hit his face. Otherwise he states he lays on the couch, and has not gotten not much. He states he drinks 1 beer in the morning, and 1 beer in the afternoon. He does endorse taking some Xanax to help him sleep. He denies other drug use. He denies chest pain, shortness of breath, fever, chills, nausea, vomiting, abdominal pain. It is very difficult to get him to answer anymore questions about his medical history. His speech is very slurred and he is trying to talk about how he misses his daughter. Emergency department he was found to have a serum sodium of 99, a bilirubin of 8.9, lactate of 9.8, ammonia of 60, CK of 7000, elevated troponin of 4.9 with a normal MB ratio, creatinine 1.5, serum bicarbonate of 13. His white count is 12 , platelets 112. INR 1.9. His MELD calculates at 26. 4/2: Sodium level rapidly corrected overnight, likely secondary to appropriate correction of severe life-threatening dehydration. NS fluids changed to 1/2NS and correction slowed down significantly. sodium up to 130 this AM. CK downtrending. however, patient remains severely hypotensive requiring Levophed to maintain a map > 65 mmHg. This AM, serum K 1.6 (confirmed). started replacement with 200meq KCl and recheck K. 03/04: persists in vasoplegic distributive shock. afebrile. no evidence of infection. wbc downtrending. persists with severe life-threatening electrolyte derangements. passed swallow eval for nectar thick liquids. sodium stable at 131. ck downtrending. 03/05: persists in distributive shock. echo yesterday with EF 30%, globally decreased function. milrinone added yesterday with improvement in vasopressor requirement. still with multiple electrolyte abnormalities despite very aggressive replacement. very poor appetite. sodium stable at 131, which appears to be around baseline for him, looking back at prior records. also became agitated and delirious yesterday, likely secondary to etoh withdraw. started on Ativan and Librium. 03/06: electrolyte derangements persist. placed on continuous NaPhos infusion x 24h due to severe life-threatening hypophosphatemia. serial K, phos checks. weaning off levophed, milrinone persists. still poor appetite. sodium jumped from 132 to 139, but no significant mental status change, and we did not increase sodium load. 03/07: still requiring high electrolyte replacement. milrinone weaned to 0.375 mcg /kg/min overnight. still doing well with that. delirium persists. 03/08 Remains on milrinone. Electrolyte improving. Remains very lethargic, intermittently follows commands 03/09: Continues to be lethargic but wakes up follows some commands. Remains on milrinone will DC today. T max 100.1, urine output adequate sodium is 143 03/10: More awake alert, ate 50% of break fast. Will DC Dobhoff. Discontinue arterial and central lines. Delirium also improved, remains weak 03/11: doing much better this morning. no complaints. still with poor appetite. electrolytes improved. 03/20: We consulted for respiratory failure. Patient was last seen in room 1415 CMP receiving oral cares and became acutely hypoxic saturations 82% with coarse breath sounds. Halicat called. Patient was placed on a Venturi mask 50 % with desaturations to the mid 90s. He received Solu-Medrol 20 mg IV 1, Lasix 40 mg IV 1 and was transferred IM [facility] 521. Hemodynamically stable. Poor mentation 03/25: Reconsulted due to respiratory failure. Patient with gurgling/ transmitted upper airway sounds. Respiration the 50s. Decision made to orotracheally intubate. Noted to have been febrile with increased O2 course over the past 48 hours. 03/26: Afebrile. Requiring Nimbex drip for ventilator synchrony. Decreased urine output noted. Hemoglobin decreased likely dilutional. Tolerating tube feeding. Electrolytes been replaced. 03/27: Tmax 100.9. Currently 97.2. +6 L past 24 hours. Hemoglobin 8 transfuse overnight. Potassium 3. We'll discontinue Nimbex drip for vent synchrony today. 03/28: Afebrile. Negative fluid balance past 24 hours. Hemoglobin currently 9. Potassium 3.0. Currently on sedation vacation positive gag and otherwise unresponsive. 03/29: Tmax 103. Currently afebrile. Not tolerating tube feeds. Remains on Kiran-Synephrine. Did not tolerate sedation vacation back on Versed at 5 mg an hour fentanyl drip at 100 mcg an hour. One bowel movement. 03/30 Tube feeds remain on hold. On neosynephrine 40 mcg/min, RN states she has been weaning. Having BMs. On Versed 8 mg/hr and fentanyl 100 mcg/hr. 03/31 Off versed. Remains on fentanyl 100 mcg/hr. Having hiccups. Still on neosynephrine 40 mcg/min. Tolerating trickle feeds. Had 2 bowel movements 04/01: no meaningful change. still requires fentanyl for sedation. still on low- dose vasopressors. 04/02: no changes. still on levo @ 7 mcg/min. unable to wean off fentanyl due to tachycardia and tachypnea. 04/03: Off all sedation. On low-dose norepinephrine. Essentially unresponsive on the ventilator. Plan for likely withdrawal of care tomorrow 04/04: Off all sedation. Off all vasopressors. According to overnight RN was following commands. Will open eyes but not following commands this AM. 04/05 No events overnight. Afebrile On no sedation. 04/06: Resting comfortably in bed. Eyes are open. Moving head back and forth continuously. Weakly following commands with his upper and lower extremities. 04/07: Low-grade temperatures overnight. 99.8. Eyes are open. Moving back and forth. Positive BM. Continues to be following commands. 04/08 Patient remains intubated on no sedation awake and follows commands. Tmax 100.8 04/09 Patient remains intubated, tolerated CPAP all day and had good responses in UO with Bumex yesterday. Afebrile. 04/10: Tmax 99.1. Went back on set rate ventilation yesterday. Will attempt PSV trials throughout the day with goal to attempt extubation tomorrow. 04/11: Tmax 100.2. Currently 100.1. Did not tolerate weaning parameters with NIF -9 and unacceptable RSBI. Patient is arousable and follows commands eyes open 04/12: Omayra care reports tonic-clonic seizure activity this AM. Heart rate in the 140s during episode with violent shaking. On examination, patient's eyes are open and at baseline except currently not following commands. 04/13: had 2 seizures this morning, both resolved without medication interventions. Dr. Fabrizio navas'd at bedside earlier and ordered Cerebyx load. no other changes. plan for trach/peg next week Subjective: 04/14: still having breakthrough seizures on repeat EEG despite Cerebyx and Keppra. plan for PEG tomorrow. 04/15 No events overnight. Remains intubated. On no sedation. For PEG tube placement today. T:101.2 last night. Objective Vital Signs Date Time Temp Pulse Resp B/P Pulse Ox O2 Delivery O2 Flow Rate FiO2 04/15/17 08:27 96 35 04/15/17 08:00 102 04/15/17 04:00 98.5 18 96/68 Intake and Output 04/14/17 04/14/17 04/15/17 08:00 16:00 00:00 Intake Total 440 ml 992 ml 1567 ml Output Total 1400 ml 575 ml 1125 ml Balance -960 ml 417 ml 442 ml Result Diagram: 04/15/17 0440 04/15/17 0440 Other Results Laboratory Tests Test 04/14/17 04/15/17 10:45 04:40 Prothrombin Time 12.9 SEC 12.6 SEC Prothromb Time International 1.2 RATIO 1.1 RATIO Ratio White Blood Count 13.0 TH/MM3 Red Blood Count 2.84 MIL/MM3 Hemoglobin 9.5 GM/DL Hematocrit 29.3 % Mean Corpuscular Volume 103.2 FL Mean Corpuscular Hemoglobin 33.5 PG Mean Corpuscular Hemoglobin 32.5 % Concent Red Cell Distribution Width 16.0 % Platelet Count 158 TH/MM3 Mean Platelet Volume 9.2 FL Neutrophils (%) (Auto) 78.7 % Lymphocytes (%) (Auto) 11.9 % Monocytes (%) (Auto) 6.8 % Eosinophils (%) (Auto) 2.2 % Basophils (%) (Auto) 0.4 % Neutrophils # (Auto) 10.2 TH/MM3 Lymphocytes # (Auto) 1.5 TH/MM3 Monocytes # (Auto) 0.9 TH/MM3 Eosinophils # (Auto) 0.3 TH/MM3 Basophils # (Auto) 0.1 TH/MM3 CBC Comment DIFF FINAL Differential Comment Sodium Level 146 MEQ/L Potassium Level 3.8 MEQ/L Chloride Level 113 MEQ/L Carbon Dioxide Level 25.9 MEQ/L Anion Gap 7 MEQ/L Blood Urea Nitrogen 19 MG/DL Creatinine 0.43 MG/DL Estimat Glomerular Filtration 203 ML/MIN Rate Random Glucose 88 MG/DL Calcium Level 7.9 MG/DL Total Bilirubin 1.7 MG/DL Aspartate Amino Transf 138 U/L (AST/SGOT) Alanine Aminotransferase 92 U/L (ALT/SGPT) Alkaline Phosphatase 416 U/L Total Protein 6.2 GM/DL Albumin 1.8 GM/DL Imaging Last Impressions Chest X-Ray 04/13/17 0600 Signed Impressions: Service Date/Time: Thursday, April 13, 2017 03:50 - CONCLUSION: Stable bilateral scattered pulmonary infiltrates. Víctor Rosas MD Abdomen X-Ray 04/13/17 0000 Signed Impressions: Service Date/Time: Thursday, April 13, 2017 10:36 - CONCLUSION: Dobbhoff tip in distal stomach. No evidence of obstruction. Logan Morgan MD Head CT 04/12/17 0000 Signed Impressions: Service Date/Time: Wednesday, April 12, 2017 21:30 - CONCLUSION: Pontine encephalomalacia. Left mastoiditis. Casper Alva MD Head Magnetic Resonance Angiography 03/28/17 0000 Signed Impressions: Service Date/Time: March 17:22 - CONCLUSION: Unremarkable examination. KShiv Castillo MD Brain MRI 03/28/17 0000 Signed Impressions: Service Date/Time: March 17:22 - CONCLUSION: 1. 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 Small subacute ischemic bilateral thalamic infarcts. 2. There has been no significant change when compared to the prior exam. Yinka Harman MD Lower Extremity Ultrasound 03/25/17 0000 Signed Impressions: Service Date/Time: Saturday, March 25, 2017 22:17 - CONCLUSION: No evidence of DVT. Víctor Rosas MD CT Angiography 03/21/17 0000 Signed Impressions: Service Date/Time: March 00:33 - CONCLUSION: No evidence of pulmonary embolism is identified. Mild atelectasis left lung base. Fluid or phlegm within the trachea. Milo Muhammad MD Abdomen Ultrasound 03/20/17 0000 Signed Impressions: Service Date/Time: Monday, March 20, 2017 11:38 - CONCLUSION: 1. Hepatosplenomegaly without focal lesion. 2. Probable sludge within the lumen of the gallbladder. No intrahepatic duct. Cheo Martínez MD Shoulder X-Ray 03/02/17 1404 Signed Impressions: Service Date/Time: Thursday, March 02, 2017 15:18 - CONCLUSION: No evidence of recent bony injury. Deformity of the lateral left clavicle suggests old healed trauma. Cheo Martínez MD Maxillofacial CT 03/02/17 1342 Signed Impressions: Service Date/Time: Thursday, March 02, 2017 14:52 - CONCLUSION: Negative CT of the facial bones. Cheo Martínez MD Chest CT 03/02/17 1342 Signed Impressions: Service Date/Time: Thursday, March 02, 2017 15:04 - CONCLUSION: 1. Abnormal appearance of the lateral left clavicle suggesting a combination of acute and chronic bony injury. Fracture lucencies without bridging callus is seen the region of the coracoid process. 2. The lungs are clear. No evidence of pneumothorax. 3. Moderate size hiatus hernia. Cheo Martínez MD Cervical Spine CT 03/02/17 1342 Signed Impressions: Service Date/Time: Thursday, March 02, 2017 14:52 - CONCLUSION: Negative CT cervical spine. Cheo Martínez MD Abdomen/Pelvis CT 03/02/17 1342 Signed Impressions: Service Date/Time: Thursday, March 02, 2017 15:04 - CONCLUSION: Moderate size hiatus hernia. Scattered small sigmoid diverticula. Otherwise negative exam. Cheo Martínez MD Objective Remarks GENERAL: 61-year-old chronically ill appearing male, currently critically ill, orotracheally intubated. HEENT: Healing abrasion left side scalp. TIMOTHY. Scleral icterus. Very poor dentition. NECK: Trachea Midline RESP: Coarse breath sounds bilaterally. Few wheezes. CARDIOVASCULAR: Tachycardia, RR. ABDOMEN: Slightly distended but soft, bowel sounds present, tolerating tube feeds. : Johns in place with conrad urine output. mild/moderate scrotal edema. MUSCULOSKELETAL: No obvious deformity. 1+ edema all extremities NEUROLOGICAL: + gag and cough. Opens eyes and weakly following commands with upper and lower extremities. 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 He is persistently febrile, though with his midbrain demyelination, this may be central fevers in origin. we will send pro-calcitonin to assess the likelihood of infectious etiology of the source of the fever. Neuro/Psych: Osmotic demyelination syndrome Acute toxic metabolic encephalopathy secondary to hypercarbic respiratory failure Alcohol dependence History of EtOH induced seizure withdrawal Chronic benzodiazepine use Bilateral thalamic CVA Off all sedation oxycodone 5 mg every 4 hours as needed for pain MRI 03/21 - T1/T2 prolonged with sparing of this central appears final fibers. 2 small spots in the posterior central spinal tract consistent with Osmotic demyelination syndrome. ODS most likely from correction of Na, with underlying alcoholism. MRI brain 03/28 revealed subacute bilateral thalamic lacunar infarcts, CPM. CT head 03/05 revealed no acute intracranial findings Continue thiamine Seen by neurology/Dr. Mazariegos. EEG with persistent seizures. continue Keppra 500mg BID Neurology following. Respiratory: Acute hypoxemic hypercapnic respiratory failure PRVC 18/550/1.2/ Continue with vent support keep sat >92% Ventilator bundle Bronchodilator therapy every 4 hours and as needed SBT daily as pablo. For trach tomorrow. Cardiovascular: Chronic Systolic heart failure Echocardiogram 03/04 revealed EF 35-40%. Mild mR. Left atrium dilated. JANE 33 mmHg TSH within normal limits 0.8 s/p hydrocortisone. Continue midodrine 10 mg 3 times Monitor HR and BP keep MAP>65mmHg Renal/FEN: Acute Kidney Injury- Rhabdomyolysis- resolved ODS-see neuro Hypernatremia Monitor renal function, I/O's, electrolytes replacement per protocol. On Free water 200ml Q6 monitor sodium level. GI: EtOH cirrhosis Hyperammonemia Hiatal hernia Sigmoid diverticulosis History of umbilical hernia repair Hypoalbuminemia NPO for PEG tube placement today (Jevity 1.5 with goal rate 60ml/hr) On Xifaxan 550 twice a day/lactulose 30 twice a day. LFT is elevated. Repeat US Liver today 03/20 Ultrasound liver-hepatosplenomegaly. Sludge in gallbladder On IV Protonix Heme: Leukocytosis Macrocytic anemia Monitor CBC. No indications for transfusion of blood proximally postop B12 1452, Folate 15.2. TSH 0.8. ID: Likely aspiration pneumonia Escherichia coli UTI 03/11 - completed therapy Acinetobacter pneumonia Pertinent cultures 04/12 BC: NGTD 04/08 - blood cultures 2 - no growth 04/08 - sputum - no growth 04/05 - urine -C GLABRATA AND C. ALBICANS 03/29 - blood cultures 2 - NGTD 03/25 - sputum --Acinetobacter. 03/25 - urine - NGTD 03/25 - blood cultures 2 -no growth 03/22 - urine - no growth 03/22 - blood cultures 2 - negative 03/20 - blood cultures 2 - no growth 03/11 - urine - Escherichia coli 03/02 - blood cultures 2 - no growth Followed by Dr. Lisa/ID. s/p Unasyn. Off Flagyl po 03/24 Will check BC x 2 sets, sputum cx for T: 101.2 last night. Procalcitonin level: 0.40, C-diff PCR negative 04/10 Endocrine: Hyperglycemia of critical illness History of hypothyroidism SSI with Accu-Cheks every 4 hours to maintain euglycemia MSK: History of old left clavicle fracture PT/OT evaluate and treat Access Peripheral IV. Central line if indicated Prophylaxis: GI - Protonix DVT - SCD/heparin subcutaneous Palliative care is following code status changed to full code per daughter's request. Tamanna Sandhu, daughter/ HCP: from [facility] [phone] now confirmed transferred to [facility] in [place] facility ) Code status -full code Level 3 Meir Garcia MD April 15, 2017 09:04
[2017-04-15 10:10] LABS: BACTERIA, URINE MANY /hpf; BLOOD, URINE NEG (NEG); GLUCOSE,URINE NEG (NEG); KETONE, URINE NEG (NEG); MUCUS URINE FEW /lpf (OCC); URINE COLOR YELLOW (YELLW/STRAW)
[2017-04-15 10:16] LABS: NITRITE,URINE POS (NEG)
[2017-04-15 10:17] LABS: COMMENT (UR) CATH-CULTURE IND; CULTURE IF INDICATED CATH CULTURE IND
--- NOTE | 2017-04-15 11:07 | RADRPT ---
EXAM DATE/TIME: 04/15/2017 09:24 [place] COMPARISON: CHEST SINGLE AP, April 13, 2017, 3:50. CT PULMONARY ANGIOGRAM, March 21, 2017, 0:33. US ABDOMEN - [facility], March 23, 2015, 10:09. INDICATIONS : Increased lab values. MEDICAL HISTORY : Methicillin-resistant Staphylococcus aureus. Respiratory failure. Liver disease. ETOH abuse. CVA. SURGICAL HISTORY : Brain surgery. ENCOUNTER: Initial ACUITY: 1 day PAIN SCORE: Nonresponsive. LOCATION: Bilateral upper quadrant MEASUREMENTS: LIVER: 20.6 cm length COMMON DUCT: 5 mm RIGHT KIDNEY: 11.7 x 5.8 x 5.9 cm SPLEEN: 15.0 cm length FINDINGS: LIVER: There is some increased echogenicity involving the liver. No dilated biliary ducts are demonstrated. The portal system is patent. There is a small amount of ascites in the upper abdomen around the liver . There is a right-sided pleural effusion. No dilated biliary ducts. COMMON DUCT: No intraluminal mass or stone visualized. GALLBLADDER: There is thickening of the gallbladder wall at 6 mm. There is sludge in gallbladder. No definite ston es are seen. No free fluid around gallbladder seen. PANCREAS: There is a nonspecific hypoechoic area involving the posterior aspect of the head and body of the blackewll creas measuring about 6.3 cm. This could be some nonopacified small bowel. The pancreatic duct is not appear to be dilated. RIGHT KIDNEY: No hydronephrosis, stone or mass. SPLEEN: No focal lesion. There is some free fluid around the spleen. CONCLUSION: 1. Abnormal appearance of the pancreas with a nonspecific hypoechoic area involving the posterior par t of the pancreas along the head and body region. Recommend CT scan of the abdomen with oral and IV c ontrast further evaluation. 2. Fatty infiltration throughout the liver. 3. There is thickening of the gallbladder wall at 6 mm. This is suggestive of chronic gallbladder dis ease. 4. Small amount of free fluid adjacent to the liver and spleen in the upper abdomen.. 5. Right-sided pleural effusion. Víctor Rosas MD on April 15, 2017 at 10:58 Board Certified Radiologist. This report was verified electronically.
--- NOTE | 2017-04-15 11:39 | HHI.IDPN ---
Note Infectious Disease Note ID COVERAGE: Patient seen and examined. Discussed with RN. Awake. Blinks to questions. Squeezes with right hand. Not moving left hand or lower extremities. No seizures today. On CPAP today. Fever last night. Trach and PEG being planned. Antibiotics None Lines PIV Past Medical History ETOHism Allergies: Coded Allergies: PEANUTS (Unverified Allergy, Severe, 03/02/17) *MDRO Multi-Drug Resistant Organism (Verified Adverse Reaction, Unknown, ) MRSA PCR screen POSITIVE - 03/02/17 MDR Acinetobacter (sputum) - 03/25/17 Objective Vital Signs Date Time Temp Pulse Resp B/P Pulse Ox O2 Delivery O2 Flow Rate FiO2 04/15/17 08:27 96 35 04/15/17 08:23 96 35 04/15/17 08:00 102 04/15/17 08:00 35 04/15/17 06:00 103 04/15/17 04:20 96 35 04/15/17 04:00 35 04/15/17 04:00 103 04/15/17 04:00 98.5 103 18 96/68 97 04/15/17 02:16 95 35 04/15/17 02:00 102 04/15/17 00:00 100.5 108 19 116/83 95 04/15/17 00:00 35 04/15/17 00:00 108 04/14/17 22:41 96 35 04/14/17 22:00 112 04/14/17 20:00 110 04/14/17 20:00 101.2 110 21 113/74 92 04/14/17 20:00 35 04/14/17 19:46 95 35 04/14/17 18:00 92 04/14/17 16:16 98 04/14/17 16:00 98.9 104 18 102/70 95 04/14/17 16:00 35 04/14/17 15:30 103 18 110/75 97 04/14/17 15:00 100 18 99/66 96 04/14/17 14:49 99 35 04/14/17 14:30 98 18 99/68 97 04/14/17 14:00 109 04/14/17 14:00 100 18 103/66 97 04/14/17 13:00 99 18 92/62 96 04/14/17 12:30 100 18 94/62 95 5/14/17 12:30 100.8 95/65 94 04/14/17 12:15 108 04/14/17 12:14 35 04/14/17 12:09 96 35 04/14/17 12:00 103 25 100/67 96 04/14/17 04/14/17 04/15/17 15:00 23:00 07:00 Intake Total 992 ml 1567 ml 164 ml Output Total 575 ml 1125 ml 500 ml Balance 417 ml 442 ml -336 ml Intake Oral 0 ml 0 ml 0 ml IV Total 222 ml 431 ml 164 ml Tube Feeding 370 ml 1136 ml 0 ml Other 400 ml Output Urine Total 325 ml 225 ml 200 ml Stool Total 250 ml 900 ml 300 ml Laboratory Tests Test 04/14/17 04/15/17 05:31 04:40 White Blood Count 16.2 TH/MM3 13.0 TH/MM3 Red Blood Count 2.81 MIL/MM3 2.84 MIL/MM3 Hemoglobin 9.4 GM/DL 9.5 GM/DL Hematocrit 29.5 % 29.3 % Mean Corpuscular Volume 104.7 FL 103.2 FL Mean Corpuscular Hemoglobin 33.5 PG 33.5 PG Mean Corpuscular Hemoglobin 32.0 % 32.5 % Concent Red Cell Distribution Width 16.9 % 16.0 % Platelet Count 150 TH/MM3 158 TH/MM3 Mean Platelet Volume 9.3 FL 9.2 FL Neutrophils (%) (Auto) 78.7 % Lymphocytes (%) (Auto) 11.9 % Monocytes (%) (Auto) 6.8 % Eosinophils (%) (Auto) 2.2 % Basophils (%) (Auto) 0.4 % Neutrophils # (Auto) 10.2 TH/MM3 Lymphocytes # (Auto) 1.5 TH/MM3 Monocytes # (Auto) 0.9 TH/MM3 Eosinophils # (Auto) 0.3 TH/MM3 Basophils # (Auto) 0.1 TH/MM3 CBC Comment DIFF FINAL Differential Comment Laboratory Tests Test 04/14/17 04/14/17 04/15/17 05:31 05:47 04:40 Sodium Level 146 MEQ/L 146 MEQ/L Potassium Level 3.3 MEQ/L 3.8 MEQ/L Chloride Level 111 MEQ/L 113 MEQ/L Carbon Dioxide Level 26.1 MEQ/L 25.9 MEQ/L Anion Gap 9 MEQ/L 7 MEQ/L Blood Urea Nitrogen 21 MG/DL 19 MG/DL Creatinine 0.49 MG/DL 0.43 MG/DL Estimat Glomerular Filtration 174 ML/MIN 203 ML/MIN Rate Random Glucose 119 MG/DL 88 MG/DL Calcium Level 7.9 MG/DL 7.9 MG/DL Procalcitonin 0.40 ng/mL Total Bilirubin 1.7 MG/DL Aspartate Amino Transf 138 U/L (AST/SGOT) Alanine Aminotransferase 92 U/L (ALT/SGPT) Alkaline Phosphatase 416 U/L Total Protein 6.2 GM/DL Albumin 1.8 GM/DL Microbiology Date/Time Procedure Status Source Growth 04/12/17 16:40 Aerobic Blood Culture - Preliminary Resulted Blood Peripheral NO GROWTH IN 3 DAYS 04/12/17 16:40 Anaerobic Blood Culture - Preliminary Resulted Blood Peripheral NO GROWTH IN 3 DAYS 04/12/17 17:07 Aerobic Blood Culture - Preliminary Resulted Blood Peripheral NO GROWTH IN 3 DAYS 04/12/17 17:07 Anaerobic Blood Culture - Preliminary Resulted Blood Peripheral NO GROWTH IN 3 DAYS 04/15/17 09:25 Gram Stain Received Sputum Endotracheal Pending 04/15/17 09:25 Sputum Culture Received Sputum Endotracheal Pending 04/15/17 09:25 Urine Culture Received Urine Catheterized Urine Pending 04/15/17 10:40 Aerobic Blood Culture Received Blood Peripheral Pending 04/15/17 10:40 Anaerobic Blood Culture Received Blood Peripheral Pending 04/15/17 10:47 Aerobic Blood Culture Received Blood Peripheral Pending 04/15/17 10:47 Anaerobic Blood Culture Received Blood Peripheral Pending Microbiology Date/Time Procedure Status Source Growth 04/12/17 16:40 Aerobic Blood Culture - Preliminary Resulted Blood Peripheral NO GROWTH IN 1 DAY 04/12/17 16:40 Anaerobic Blood Culture - Preliminary Resulted Blood Peripheral NO GROWTH IN 1 DAY 04/12/17 17:07 Aerobic Blood Culture - Preliminary Resulted Blood Peripheral NO GROWTH IN 1 DAY 04/12/17 17:07 Anaerobic Blood Culture - Preliminary Resulted Blood Peripheral NO GROWTH IN 1 DAY IMAGING: Liver Ultrasound 04/15/17 0000 Signed Impressions: Service Date/Time: Saturday, April 15, 2017 09:24 - CONCLUSION: 1. Abnormal appearance of the pancreas with a nonspecific hypoechoic area involving the posterior part of the pancreas along the head and body region. Recommend CT scan of the abdomen with oral and IV contrast further evaluation. 2. Fatty infiltration throughout the liver. 3. There is thickening of the gallbladder wall at 6 mm. This is suggestive of chronic gallbladder disease. 4. Small amount of free fluid adjacent to the liver and spleen in the upper abdomen.. 5. Right-sided pleural effusion. Víctor Rosas MD Chest X-Ray 04/13/17 0600 Signed Impressions: Service Date/Time: Thursday, April 13, 2017 03:50 - CONCLUSION: Stable bilateral scattered pulmonary infiltrates. Víctor Rosas MD Abdomen X-Ray 04/13/17 0000 Signed Impressions: Service Date/Time: Thursday, April 13, 2017 10:36 - CONCLUSION: Dobbhoff tip in distal stomach. No evidence of obstruction. Logan Morgan MD Head CT 04/12/17 0000 Signed Impressions: Service Date/Time: Wednesday, April 12, 2017 21:30 - CONCLUSION: Pontine encephalomalacia. Left mastoiditis. Casper Alva MD Chest X-Ray 04/08/17 0600 Signed Impressions: Service Date/Time: Saturday, April 08, 2017 05:10 - CONCLUSION: 1. Endotracheal tube and weighted feeding tube. 2. Bilateral pulmonary infiltrates. Some improvement from the prior study. Cheo Barrera Jr., MD Chest X-Ray 03/27/17 06 Signed Impressions: Service Date/Time: Monday, March 27, 2017 02:33 - CONCLUSION: No significant interval change. Víctor Rosas MD Chest X-Ray 03/26/17 0600 Signed Impressions: Service Date/Time: Sunday, March 26, 2017 05:35 - CONCLUSION: Improving bilateral pulmonary infiltrates Víctor Roass MD Chest X-Ray 03/25/17 1004 Signed Impressions: Service Date/Time: Saturday, March 25, 2017 10:03 - CONCLUSION: 1. Worsening bibasilar consolidation. 2. Endotracheal tube with tip at the thoracic inlet and should be advanced at least 3-4 cm. 3. Adequate placement of left jugular central line without pneumothorax. Logan Morgan MD Chest X-Ray 03/26/17 0600 Signed Impressions: Service Date/Time: Sunday, March 26, 2017 05:35 - CONCLUSION: Improving bilateral pulmonary infiltrates Víctor Rosas MD Lower Extremity Ultrasound 03/25/17 0000 Signed Impressions: Service Date/Time: Saturday, March 25, 2017 22:17 - CONCLUSION: No evidence of DVT. Víctor Rosas MD CT Angiography 03/21/17 0000 Signed Impressions: Service Date/Time: March 00:33 - CONCLUSION: No evidence of pulmonary embolism is identified. Mild atelectasis left lung base. Fluid or phlegm within the trachea. Milo Muhammad MD Brain MRI 03/20/17 0000 Signed Impressions: Service Date/Time: Monday, March 20, 2017 16:11 - CONCLUSION: Abnormal appearance to the ruthy with some extension into the cortical spinal tracts of the posterior thalamus was bilaterally. 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 Cheo Martínez MD Abdomen X-Ray 03/20/17 0000 Signed Impressions: Service Date/Time: Monday, March 20, 2017 18:12 - CONCLUSION: Tip of the Dobbhoff tube projecting towards the pylorus. Cheo Barrera Jr., MD Abdomen Ultrasound 03/20/17 0000 Signed Impressions: Service Date/Time: Monday, March 20, 2017 11:38 - CONCLUSION: 1. Hepatosplenomegaly without focal lesion. 2. Probable sludge within the lumen of the gallbladder. No intrahepatic duct. Cheo Martínez MD Shoulder X-Ray 03/02/17 1404 Signed Impressions: Service Date/Time: Thursday, March 02, 2017 15:18 - CONCLUSION: No evidence of recent bony injury. Deformity of the lateral left clavicle suggests old healed trauma. Cheo Martínez MD Maxillofacial CT 03/02/17 1342 Signed Impressions: Service Date/Time: Thursday, March 02, 2017 14:52 - CONCLUSION: Negative CT of the facial bones. Cheo Martínez MD Head CT 03/02/17 1342 Signed Impressions: Service Date/Time: Thursday, March 02, 2017 14:52 - CONCLUSION: 1. Prominent scalp swelling left frontal and parietal region. No skull fracture seen. 2. Intracranial contents are intact without acute finding. Cheo Martínez MD Chest CT 03/02/17 1342 Signed Impressions: Service Date/Time: Thursday, March 02, 2017 15:04 - CONCLUSION: 1. Abnormal appearance of the lateral left clavicle suggesting a combination of acute and chronic bony injury. Fracture lucencies without bridging callus is seen the region of the coracoid process. 2. The lungs are clear. No evidence of pneumothorax. 3. Moderate size hiatus hernia. Cheo Martínez MD Cervical Spine CT 03/02/17 1342 Signed Impressions: Service Date/Time: Thursday, March 02, 2017 14:52 - CONCLUSION: Negative CT cervical spine. Cheo Martínez MD Abdomen/Pelvis CT 03/02/17 1342 Signed Impressions: Service Date/Time: Thursday, March 02, 2017 15:04 - CONCLUSION: Moderate size hiatus hernia. Scattered small sigmoid diverticula. Otherwise negative exam. Cheo Martínez MD Chest X-Ray 03/25/17 1004 Signed Impressions: Service Date/Time: Saturday, March 25, 2017 10:03 - CONCLUSION: 1. Worsening bibasilar consolidation. 2. Endotracheal tube with tip at the thoracic inlet and should be advanced at least 3-4 cm. 3. Adequate placement of left jugular central line without pneumothorax. Logan Morgan MD Chest X-Ray 03/23/17 0000 Signed Impressions: Service Date/Time: Thursday, March 23, 2017 14:27 - CONCLUSION: 1. Feeding tube in place with what appears to be a loop in the hypopharynx. 2. Bibasilar areas of consolidation or atelectasis. Casper Vargas MD Physical Exam GENERAL: Sedated on the vent. SKIN: Warm and dry. No generalized rash. HEENT: Pupils equal round and reactive. Orally intubated. Poor dentition. NECK: Supple. CARDIOVASCULAR: Regular rate and rhythm without murmurs, gallops, or rubs. RESPIRATORY: Coarse breath sounds bilateral. GASTROINTESTINAL: Abdomen mildly distended, bowel sounds are present and normoactive. MUSCULOSKELETAL: Lower extremities without clubbing, cyanosis. No edema. NEUROLOGICAL: Unable to fully assess. : Johns cath in place. 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 RECOMMENDATION Follow C/S Follow temps Monitor progress Alok Lopez MD April 15, 2017 11:39
[2017-04-15] MEDS ORDERED: PROPOFOL 200 MG/20 ML AMP IV ONE (13:29)
--- NOTE | 2017-04-15 14:07 | GIPROC ---
[facility] [address] [facility]. [facility], [address] EGD WITH PEG PROCEDURE REPORT EXAM DATE: 04/15/2017 PATIENT NAME: Alan Sandhu MR#: [id number] BIRTHDATE: 1955 ATTENDING: Aylin Curran MD ORDER #: [id number] INTEGRATION CONSULTANT: Cricket Galvan and Rosa Arteaga STATUS: inpatient INDICATIONS: The patient is a 61 yr old male here for an EGD with PEG due to dysphagia PROCEDURE PERFORMED: EGD with PEG placement MEDICATIONS: None and Per Anesthesia. TOPICAL ANESTHETIC: CONSENT: The patient understands the risks and benefits of the procedure and understands that these risks include, but are not limited to: sedation, allergic reaction, infection, perforation and/or bleeding. Alternative means of evaluation and treatment include, among others: physical exam, x-rays, and/or surgical intervention. The patient elects to proceed with this endoscopic procedure. medical equipment was checked for proper function. Hand hygiene and appropriate measures for infection prevention was taken. After the risks, benefits and alternatives of the procedure were thoroughly explained, Informed consent was verified, confirmed and timeout was successfully executed by the treatment team. The patient was anesthetized with topical anesthesia and the Pentax [id number] endoscope was introduced through the mouth and advanced to the second portion of the duodenum. The instrument was slowly withdrawn as the mucosa was fully examined. The upper, middle, and distal third of the esophagus were carefully inspected and no abnormalities were noted. The z-line was well seen at the GEJ. The endoscope was pushed into the fundus which was normal including a retroflexed view. The antrum, first and second part of the duodenum were unremarkable. The stomach was then inflated with air, and by a combination of transillumination and manual palpation, the site for the gastrostomy tube placement was selected and marked on the anterior abdominal wall. The skin of the anterior abdomen was surgically prepped and draped with sterile towels. Utilizing strict sterile technique, the selected site was then anesthetized with 1% xylocaine by injection into the skin and subcutaneous tissue. A 1 cm incision was made through the skin and subcutaneous tissue, and the needle/cannula assembly was then passed through the abdominal wall and through the anterior wall of the stomach, maintaining visualization with the endoscope. A snare device previously placed through the instrument channel was then opened and placed around the cannula, the needle was removed, and the insertion wire was passed through the cannula and into the stomach lumen. The snare was then loosened from the cannula, and repositioned to snare the insertion wire. The snare was then pulled up to the endoscope distal tip, and the scope was then withdrawn bringing with it the snare and insertion wire. The insertion wire was then released from the snare, and then loop-attached to the Bard 20 Fr gastrostomy tube. Using the "pull technique", the G-tube was then pulled into place by traction on the insertion wire at the abdominal wall end. The G-tube insertion site was then cleansed once again, and the external bolster was placed over the tube to secure it to the abdominal wall. A sterile dressing was then applied, and the procedure terminated. no abnormalities The gastroscope was then slowly withdrawn and removed. ADVERSE EVENT: There were no complications. IMPRESSIONS: 1. The upper, middle, and distal third of the esophagus were carefully inspected and no abnormalities were noted. The z-line was well seen at the GEJ. The endoscope was pushed into the fundus which was normal including a retroflexed view. The antrum, first and second part of the duodenum were unremarkable. 2. No abnormalities RECOMMENDATIONS: 1. Anti-reflux regimen 2- NPO FOR 6 HOURS THEN START USING PEG FOR MEDS AND FEEDING 2. Continue PPI REPEAT EXAM: procedure as needed Aylin Curran MD eSigned: Aylin Curran MD 04/15/2017 2:07 PM cc: PATIENT NAME: Alan Sandhu MR#: [id number]
--- NOTE | 2017-04-15 14:25 | HHI.GIFU ---
Subjective Remarks laying in bed, comfortable, intubated Objective Vitals I&O Vital Signs Date Time Temp Pulse Resp B/P Pulse Ox O2 Delivery O2 Flow Rate FiO2 04/15/17 12:37 35 04/15/17 12:34 96 65 04/15/17 08:27 96 35 04/15/17 08:23 96 35 04/15/17 08:00 102 04/15/17 08:00 35 04/15/17 06:00 103 04/15/17 04:20 96 35 04/15/17 04:00 35 04/15/17 04:00 103 04/15/17 04:00 98.5 103 18 96/68 97 04/15/17 02:16 95 35 04/15/17 02:00 102 04/15/17 00:00 100.5 108 19 116/83 95 04/15/17 00:00 35 04/15/17 00:00 108 04/14/17 22:41 96 35 04/14/17 22:00 112 04/14/17 20:00 110 04/14/17 20:00 101.2 110 21 113/74 92 04/14/17 20:00 35 04/14/17 19:46 95 35 04/14/17 18:00 92 04/14/17 16:16 98 04/14/17 16:00 98.9 104 18 102/70 95 04/14/17 16:00 35 04/14/17 15:30 103 18 110/75 97 04/14/17 15:00 100 18 99/66 96 04/14/17 14:49 99 35 04/14/17 14:30 98 18 99/68 97 I/O 04/14/17 04/14/17 04/14/17 04/15/17 04/15/17 04/15/17 06:59 14:59 22:59 06:59 14:59 22:59 Intake Total 440 ml 992 ml 1567 ml 164 ml Output Total 1400 ml 575 ml 1125 ml 500 ml Balance -960 ml 417 ml 442 ml -336 ml Intake Oral 0 ml 0 ml 0 ml 0 ml IV Total 25 ml 222 ml 431 ml 164 ml Tube Feeding 415 ml 370 ml 1136 ml 0 ml Other 400 ml Output Urine Total 1200 ml 325 ml 225 ml 200 ml Stool Total 200 ml 250 ml 900 ml 300 ml Laboratory Laboratory Tests Test 5/15/17 5/15/17 04:40 09:25 White Blood Count 13.0 Red Blood Count 2.84 Hemoglobin 9.5 Hematocrit 29.3 Mean Corpuscular Volume 103.2 Mean Corpuscular Hemoglobin 33.5 Mean Corpuscular Hemoglobin 32.5 Concent Red Cell Distribution Width 16.0 Platelet Count 158 Mean Platelet Volume 9.2 Neutrophils (%) (Auto) 78.7 Lymphocytes (%) (Auto) 11.9 Monocytes (%) (Auto) 6.8 Eosinophils (%) (Auto) 2.2 Basophils (%) (Auto) 0.4 Neutrophils # (Auto) 10.2 Lymphocytes # (Auto) 1.5 Monocytes # (Auto) 0.9 Eosinophils # (Auto) 0.3 Basophils # (Auto) 0.1 CBC Comment DIFF FINAL Differential Comment Prothrombin Time 12.6 Prothromb Time International 1.1 Ratio Sodium Level 146 Potassium Level 3.8 Chloride Level 113 Carbon Dioxide Level 25.9 Anion Gap 7 Blood Urea Nitrogen 19 Creatinine 0.43 Estimat Glomerular Filtration 203 Rate Random Glucose 88 Calcium Level 7.9 Total Bilirubin 1.7 Aspartate Amino Transf 138 (AST/SGOT) Alanine Aminotransferase 92 (ALT/SGPT) Alkaline Phosphatase 416 Total Protein 6.2 Albumin 1.8 Urine Color YELLOW Urine Turbidity HAZY Urine pH 8.0 Urine Specific [place] 1.023 Urine Protein 30 Urine Glucose (UA) NEG Urine Ketones NEG Urine Occult Blood NEG Urine Nitrite POS Urine Bilirubin NEG Urine Urobilinogen LESS THAN 2.0 Urine Leukocyte Esterase LARGE Urine WBC 65 Urine WBC Clumps RARE Urine Bacteria MANY Urine Mucus FEW Urine Yeast with Hyphae FEW Urine Yeast (Budding) MOD Microscopic Urinalysis Comment CATH-CULTURE IND Date/Time Procedure Status Source Growth 04/15/17 10:47 Aerobic Blood Culture Received Blood Peripheral Pending 04/15/17 10:47 Anaerobic Blood Culture Received Blood Peripheral Pending 04/15/17 09:25 Urine Culture Received Urine Catheterized Urine Pending 04/15/17 09:25 Gram Stain - Final Resulted Sputum Endotracheal 04/15/17 09:25 Sputum Culture Resulted Sputum Endotracheal Pending 04/12/17 17:07 Aerobic Blood Culture - Preliminary Resulted Blood Peripheral NO GROWTH IN 3 DAYS 04/12/17 17:07 Anaerobic Blood Culture - Preliminary Resulted Blood Peripheral NO GROWTH IN 3 DAYS Physical Exam HEENT: Pupils round and reactive to light; normocephalic; atraumatic; no jaundice. Throat is clear. intubated NECK: Neck is supple, no JVD, no lymphadenopathy. CHEST: few crackles B CARDIAC: Regular rate and rhythm with no murmur gallop or rubs. ABDOMEN: Soft, nondistended, nontender; no hepatosplenomegaly; bowel sounds are present in all four quadrants. EXTREMITIES: No clubbing, cyanosis, or edema. SKIN: Normal; no rash; no jaundice. 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 Pt critically ill in intensive medical unit, requiring prolonged ventilation. GI consulted for PEG. Tie Hacker recommends Jevity 1.5 is at goal rate of 60 ml/hr Tamanna Sandhu is listed as next of kin to discuss procedure, risks, benefits. Attempted to call this number, it is booking for [facility]. They took my name and number and will have the patient's daughter call me when she is able. Will tentatively plan for Saturday if we are able to get consents. - Elevated LFTs/Liver cirrhosis. Pt with hx of alcohol abuse. MELD 25. T. Bili 1.6, AST 127, ALT 99, Alk Phosph 398- likely combination of alcohol abuse on underlying cirrhosis, possible some congestive component. - Coagulopathy. PT 17.0, INR 1.5. - Anemia. HH 8.4/26.0. No active bleeding. - Resp. Failure/PNA. Vent per CCM. GS consulted for tracheostomy. 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 thalamic CVA. S/P Neuro eval. Lactulose, Xifaxan. Na 146. - MAXIME with electrolyte abnormalities. Per renal/CCM - Leukocytosis with UTI (S/P Tx), PNA. - CHF, Hx hypothyroidism per CCM --17 PEG tube was placed today no issues ABx was given PLAN: - Hold Heparin till am - Tie Hacker recommends Jevity 1.5 is at goal rate of 60 ml/hr give after 6 hours Aylin Curran MD April 15, 2017 14:25
--- NOTE | 2017-04-15 16:06 | HHI.HCPN ---
Reason for visit a. To assist with evaluation and management of symptoms including: dyspnea, pain. b. To assist medical decision maker(s) with: better understanding of current medical conditions; weighing benefits/burdens of medical treatment options; making medical treatment decisions. . (JAN LIGHT) Subjective/Interval History Patient seen and examined in ICU. No family at bedside. He remains intubated on mechanical ventilation. PEG tube was placed just prior to my visit. Patient is awake and alert, follows simple commands on right. Unable to follow complex commands during my visit. Nods no to pain. Tmax 101.2. Blood, sputum and urine cultures pending. ID, Dr. Lopez consulted. Hypotensive. WBC 13, hemoglobin 9.5, hematocrit 29.3, platelet 158. Sodium 146, creatinine 0.43, AST 138, ALT 92, alkaline phosphatase were 16, total bilirubin 1.7. Total protein 6.2, albumin 1.8. 04/12/17 CT head revealed Pontine encephalomalacia, left mastoiditis. Repeat EEG revealed diffuse moderate/severe slowing with some recurrent pattern dispersed between what appears to be artifact or Tom and slow waves. Patient started on Keppra. Liver ultrasound revealed abnormal appearance of the pancreas involving the posterior pancreas along the head and body region, recommend CT scan abdomen for further evaluation, fatty infiltration throughout the liver, thickening of the gallbladder wall at 6mm consistent with chronic gallbladder disease, small amount of fluid adjacent to the liver and spleen in the upper abdomen, right- sided pleural effusion. Case discussed with bedside RN. Will attempt to speak with Dr. Garcia. Nursing indicates trach planned for 04/16/17. . (JAN LIGHT) Advance Directives Living Will: Never completed Health Care Surrogate: Never completed Durable Power of Tourist Home Keeper: Never completed (JAN LIGHT) Advance Directive Specifics Health Care Surrogate(s): Margot Nolen is, per [place] statues bam care decision proxy. Now in [facility] (#[phone]). Facilitation of conversations with Tamanna can be arranged through booking (#[phone]) in emergency situations to address goals of care.Ask for a [place] on staff as shifts rotate throughout the week. Significant change in goals: FULL CODE. Desires continued aggressive care. . (JAN LIGHT) Objective Vital Signs Date Time Temp Pulse Resp B/P Pulse Ox O2 Delivery O2 Flow Rate FiO2 04/15/17 14:27 100 04/15/17 12:45 96 18 96 04/15/17 12:37 35 04/15/17 12:34 96 65 04/15/17 12:30 96 22 100/68 96 04/15/17 12:15 98.7 95 24 97 04/15/17 12:00 95 23 99/69 97 04/15/17 12:00 35 04/15/17 11:45 96 23 97 04/15/17 11:30 97 22 100/71 97 04/15/17 11:15 96 24 97 04/15/17 11:00 96 23 101/70 96 04/15/17 10:45 97 22 96 04/15/17 10:30 96 24 103/68 97 04/15/17 10:15 97 22 96 04/15/17 10:00 97 23 101/68 97 04/15/17 09:45 97 23 97 04/15/17 09:30 97 22 111/75 96 04/15/17 09:15 97 22 96 04/15/17 09:00 97 22 101/70 96 04/15/17 08:45 97 22 96 04/15/17 08:30 96 22 107/73 96 04/15/17 08:27 96 35 04/15/17 08:23 96 35 04/15/17 08:15 99.5 97 18 96 04/15/17 08:00 98 18 105/73 96 04/15/17 08:00 102 04/15/17 08:00 35 04/15/17 06:00 103 04/15/17 04:20 96 35 04/15/17 04:00 35 04/15/17 04:00 103 04/15/17 04:00 98.5 103 18 96/68 97 04/15/17 02:16 95 35 04/15/17 02:00 102 04/15/17 00:00 100.5 108 19 116/83 95 04/15/17 00:00 35 04/15/17 00:00 108 04/14/17 22:41 96 35 04/14/17 22:00 112 04/14/17 20:00 110 04/14/17 20:00 101.2 110 21 113/74 92 04/14/17 20:00 35 04/14/17 19:46 95 35 04/14/17 18:00 92 04/14/17 16:16 98 04/14/17 16:00 98.9 104 18 102/70 95 04/14/17 16:00 35 Intake & Output 04/15/17 04/15/17 07:00 19:00 Intake Total 1731 ml 550 ml Output Total 1625 ml 400 ml Balance 106 ml 150 ml Intake Oral 0 ml 0 ml IV Total 595 ml 300 ml Tube Feeding 1136 ml 250 ml Output Urine Total 425 ml 250 ml Stool Total 1200 ml 150 ml Physical Exam CONSTITUTIONAL/GENERAL: This is an thin, pale appearing patient, in no apparent distress. Intubated on mechanical ventilation. TUBES/LINES/DRAINS: ETT, left Dobbhoff, Johns, PEG tube, rectal tube, SCDs. Bilateral heel boots. SKIN: Ecchymosis bilateral UEs. Erythema/rash to forehead and bilateral cheeks. Skin temperature appropriate. CARDIOVASCULAR: RRR. RESPIRATORY/CHEST: Symmetric, unlabored respirations. Coarse rhonchi anteriorly. Remains intubated on mechanical ventilation. GASTROINTESTINAL: Abdomen round, soft, non-tender. Positive bowel sounds. Ongoing tube feedings via NG tube. GENITOURINARY: Without palpable bladder distension. Johns catheter in place. Erythema groin area, scrotal edema noted. MUSCULOSKELETAL: Generalized edema noted. No mottling or clubbing. NEUROLOGICAL: Eyes open. Follows some simple commands on right, does not complete complex commands. Nods no to pain. PSYCHIATRIC: Awake and alert. . (JAN LIGHT) Diagnostic Tests Laboratory Laboratory Tests Test 04/13/17 04/14/17 04/14/17 04/14/17 05:47 05:31 05:47 10:45 White Blood Count 15.2 TH/MM3 16.2 TH/MM3 (4.0-11.0) (4.0-11.0) Red Blood Count 2.71 MIL/MM3 2.81 MIL/MM3 (4.50-5.90) (4.50-5.90) Hemoglobin 9.0 GM/DL 9.4 GM/DL (13.0-17.0) (13.0-17.0) Hematocrit 27.5 % 29.5 % (39.0-51.0) (39.0-51.0) Mean Corpuscular Volume 101.5 FL 104.7 FL (80.0-100.0) (80.0-100.0) Mean Corpuscular Hemoglobin 33.3 PG 33.5 PG (27.0-34.0) (27.0-34.0) Mean Corpuscular Hemoglobin 32.8 % 32.0 % Concent (32.0-36.0) (32.0-36.0) Red Cell Distribution Width 16.3 % 16.9 % (11.6-17.2) (11.6-17.2) Platelet Count 147 TH/MM3 150 TH/MM3 (150-450) (150-450) Mean Platelet Volume 8.9 FL 9.3 FL (7.0-11.0) (7.0-11.0) Neutrophils (%) (Auto) 76.3 % (16.0-70.0) Lymphocytes (%) (Auto) 13.9 % (9.0-44.0) Monocytes (%) (Auto) 7.5 % (0.0-8.0) Eosinophils (%) (Auto) 1.6 % (0.0-4.0) Basophils (%) (Auto) 0.7 % (0.0-2.0) Neutrophils # (Auto) 11.6 TH/MM3 (1.8-7.7) Lymphocytes # (Auto) 2.1 TH/MM3 (1.0-4.8) Monocytes # (Auto) 1.1 TH/MM3 (0-0.9) Eosinophils # (Auto) 0.2 TH/MM3 (0-0.4) Basophils # (Auto) 0.1 TH/MM3 (0-0.2) CBC Comment DIFF FINAL Differential Comment Sodium Level 148 MEQ/L 146 MEQ/L (136-145) (136-145) Potassium Level 3.4 MEQ/L 3.3 MEQ/L (3.5-5.1) (3.5-5.1) Chloride Level 110 MEQ/L 111 MEQ/L (98-107) (98-107) Carbon Dioxide Level 27.1 MEQ/L 26.1 MEQ/L (21.0-32.0) (21.0-32.0) Anion Gap 11 MEQ/L (5-15) 9 MEQ/L (5-15) Blood Urea Nitrogen 22 MG/DL (7-18) 21 MG/DL (7-18) Creatinine 0.43 MG/DL 0.49 MG/DL (0.60-1.30) (0.60-1.30) Estimat Glomerular Filtration 203 ML/MIN 174 ML/MIN Rate (>89) (>89) Random Glucose 86 MG/DL 119 MG/DL (74-106) (74-106) Calcium Level 8.1 MG/DL 7.9 MG/DL (8.5-10.1) (8.5-10.1) Phosphorus Level 3.6 MG/DL (2.5-4.9) Magnesium Level 2.0 MG/DL (1.5-2.5) Phenytoin (Dilantin) Level 6.7 MCG/ML (10.0-20.0) Procalcitonin 0.40 ng/mL (0.00-0.50) Prothrombin Time 12.9 SEC (9.8-11.6) Prothromb Time International 1.2 RATIO Ratio Test 04/15/17 04/15/17 04:40 09:25 White Blood Count 13.0 TH/MM3 (4.0-11.0) Red Blood Count 2.84 MIL/MM3 (4.50-5.90) Hemoglobin 9.5 GM/DL (13.0-17.0) Hematocrit 29.3 % (39.0-51.0) Mean Corpuscular Volume 103.2 FL (80.0-100.0) Mean Corpuscular Hemoglobin 33.5 PG (27.0-34.0) Mean Corpuscular Hemoglobin 32.5 % Concent (32.0-36.0) Red Cell Distribution Width 16.0 % (11.6-17.2) Platelet Count 158 TH/MM3 (150-450) Mean Platelet Volume 9.2 FL (7.0-11.0) Neutrophils (%) (Auto) 78.7 % (16.0-70.0) Lymphocytes (%) (Auto) 11.9 % (9.0-44.0) Monocytes (%) (Auto) 6.8 % (0.0-8.0) Eosinophils (%) (Auto) 2.2 % (0.0-4.0) Basophils (%) (Auto) 0.4 % (0.0-2.0) Neutrophils # (Auto) 10.2 TH/MM3 (1.8-7.7) Lymphocytes # (Auto) 1.5 TH/MM3 (1.0-4.8) Monocytes # (Auto) 0.9 TH/MM3 (0-0.9) Eosinophils # (Auto) 0.3 TH/MM3 (0-0.4) Basophils # (Auto) 0.1 TH/MM3 (0-0.2) CBC Comment DIFF FINAL Differential Comment Prothrombin Time 12.6 SEC (9.8-11.6) Prothromb Time International 1.1 RATIO Ratio Sodium Level 146 MEQ/L (136-145) Potassium Level 3.8 MEQ/L (3.5-5.1) Chloride Level 113 MEQ/L (98-107) Carbon Dioxide Level 25.9 MEQ/L (21.0-32.0) Anion Gap 7 MEQ/L (5-15) Blood Urea Nitrogen 19 MG/DL (7-18) Creatinine 0.43 MG/DL (0.60-1.30) Estimat Glomerular Filtration 203 ML/MIN Rate (>89) Random Glucose 88 MG/DL (74-106) Calcium Level 7.9 MG/DL (8.5-10.1) Total Bilirubin 1.7 MG/DL (0.2-1.0) Aspartate Amino Transf 138 U/L (15-37) (AST/SGOT) Alanine Aminotransferase 92 U/L (12-78) (ALT/SGPT) Alkaline Phosphatase 416 U/L (45-117) Total Protein 6.2 GM/DL (6.4-8.2) Albumin 1.8 GM/DL (3.4-5.0) Urine Color YELLOW (YELLW/STRAW) Urine Turbidity HAZY (CLEAR) Urine pH 8.0 (5.0-8.5) Urine Specific [place] 1.023 (1.002-1.035) Urine Protein 30 mg/dL (NEG-TRACE) Urine Glucose (UA) NEG mg/dL (NEG) Urine Ketones NEG mg/dL (NEG) Urine Occult Blood NEG (NEG) Urine Nitrite POS (NEG) Urine Bilirubin NEG (NEG) Urine Urobilinogen LESS THAN 2.0 MG/DL (LESS THAN 2.0) Urine Leukocyte Esterase LARGE (NEG) Urine WBC 65 /hpf (0-5) Urine WBC Clumps RARE (NONE) Urine Bacteria MANY /hpf (NONE) Urine Mucus FEW /lpf (OCC) Urine Yeast with Hyphae FEW (NONE) Urine Yeast (Budding) MOD (NONE) Microscopic Urinalysis Comment CATH-CULTURE IND (JAN LIGHT) Result Diagram: 04/15/17 0440 04/15/17 0440 Microbiology Microbiology Date/Time Procedure Status Source Growth 04/12/17 16:40 Aerobic Blood Culture - Preliminary Resulted Blood Peripheral NO GROWTH IN 3 DAYS 04/12/17 16:40 Anaerobic Blood Culture - Preliminary Resulted Blood Peripheral NO GROWTH IN 3 DAYS 04/12/17 17:07 Aerobic Blood Culture - Preliminary Resulted Blood Peripheral NO GROWTH IN 3 DAYS 04/12/17 17:07 Anaerobic Blood Culture - Preliminary Resulted Blood Peripheral NO GROWTH IN 3 DAYS 04/15/17 09:25 Gram Stain - Final Resulted Sputum Endotracheal 04/15/17 09:25 Sputum Culture Resulted Sputum Endotracheal Pending 04/15/17 09:25 Urine Culture Received Urine Catheterized Urine Pending 04/15/17 10:40 Aerobic Blood Culture Received Blood Peripheral Pending 04/15/17 10:40 Anaerobic Blood Culture Received Blood Peripheral Pending 04/15/17 10:47 Aerobic Blood Culture Received Blood Peripheral Pending 04/15/17 10:47 Anaerobic Blood Culture Received Blood Peripheral Pending . Imaging Last Impressions Liver Ultrasound 04/15/17 0000 Signed Impressions: Service Date/Time: Saturday, April 15, 2017 09:24 - CONCLUSION: 1. Abnormal appearance of the pancreas with a nonspecific hypoechoic area involving the posterior part of the pancreas along the head and body region. Recommend CT scan of the abdomen with oral and IV contrast further evaluation. 2. Fatty infiltration throughout the liver. 3. There is thickening of the gallbladder wall at 6 mm. This is suggestive of chronic gallbladder disease. 4. Small amount of free fluid adjacent to the liver and spleen in the upper abdomen.. 5. Right-sided pleural effusion. Víctor Rosas MD Chest X-Ray 04/13/17 0600 Signed Impressions: Service Date/Time: Thursday, April 13, 2017 03:50 - CONCLUSION: Stable bilateral scattered pulmonary infiltrates. Víctor Rosas MD Abdomen X-Ray 04/13/17 0000 Signed Impressions: Service Date/Time: Thursday, April 13, 2017 10:36 - CONCLUSION: Dobbhoff tip in distal stomach. No evidence of obstruction. Logan Morgan MD Head CT 04/12/17 0000 Signed Impressions: Service Date/Time: Wednesday, April 12, 2017 21:30 - CONCLUSION: Pontine encephalomalacia. Left mastoiditis. Casper Alva MD Head Magnetic Resonance Angiography 03/28/17 0000 Signed Impressions: Service Date/Time: March 17:22 - CONCLUSION: Unremarkable examination. Bety Castillo MD Brain MRI 03/28/17 0000 Signed Impressions: Service Date/Time: March 17:22 - CONCLUSION: 1. 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 Small subacute ischemic bilateral thalamic infarcts. 2. There has been no significant change when compared to the prior exam. Yinka Harman MD Lower Extremity Ultrasound 03/25/17 0000 Signed Impressions: Service Date/Time: Saturday, March 25, 2017 22:17 - CONCLUSION: No evidence of DVT. Víctor Rosas MD CT Angiography 03/21/17 0000 Signed Impressions: Service Date/Time: March 00:33 - CONCLUSION: No evidence of pulmonary embolism is identified. Mild atelectasis left lung base. Fluid or phlegm within the trachea. Milo Muhammad MD Abdomen Ultrasound 03/20/17 0000 Signed Impressions: Service Date/Time: Monday, March 20, 2017 11:38 - CONCLUSION: 1. Hepatosplenomegaly without focal lesion. 2. Probable sludge within the lumen of the gallbladder. No intrahepatic duct. Cheo Martínez MD Shoulder X-Ray 03/02/17 1404 Signed Impressions: Service Date/Time: Thursday, March 02, 2017 15:18 - CONCLUSION: No evidence of recent bony injury. Deformity of the lateral left clavicle suggests old healed trauma. Cheo Martínez MD Maxillofacial CT 03/02/17 1342 Signed Impressions: Service Date/Time: Thursday, March 02, 2017 14:52 - CONCLUSION: Negative CT of the facial bones. Cheo Martínez MD Chest CT 03/02/17 1342 Signed Impressions: Service Date/Time: Thursday, March 02, 2017 15:04 - CONCLUSION: 1. Abnormal appearance of the lateral left clavicle suggesting a combination of acute and chronic bony injury. Fracture lucencies without bridging callus is seen the region of the coracoid process. 2. The lungs are clear. No evidence of pneumothorax. 3. Moderate size hiatus hernia. Cheo Martínez MD Cervical Spine CT 03/02/17 1342 Signed Impressions: Service Date/Time: Thursday, March 02, 2017 14:52 - CONCLUSION: Negative CT cervical spine. Cheo Martínez MD Abdomen/Pelvis CT 03/02/17 1342 Signed Impressions: Service Date/Time: Thursday, March 02, 2017 15:04 - CONCLUSION: Moderate size hiatus hernia. Scattered small sigmoid diverticula. Otherwise negative exam. Cheo Martínez MD . Procedures * 04/15/17 - PEG tube placed. * 03/25/17 -Endotracheal intubation. . (JAN LIGHT-C) Assessment and Plan Disease Oriented Problem List: (1) Sepsis due to Acinetobacter Comment: Sepsis syndrome secondary to pneumonia -MDR Acinetobacter (2) Acute hypoxemic respiratory failure Comment: Remains intubated on mechanical ventilation. 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 However, he is highly prone to further aspiration and increasing shortness of breath) Comment: Secondary to respiratory failure, pneumonia. Remains intubated on mechanical ventilation. (2) Pain 0-10 Scale: 0 Comment: Patient has had prolonged bedrest, and is now unable to reposition himself effectively. (3) Debility 0-10 Scale: Unable to quantify Comment: Secondary to acute illness and prolonged hospitalization. Pertinent Non-Medical Issues Psychosocial: 61-year-old with long-standing history of alcohol use and abuse, 1 daughter who is incarcerated in the [facility] nursing home. Spiritual: No reported. Legal: Daughter Tamanna is, per [place] statues bam care decision proxy. She is currently incarcerated at [facility]. They are permitting her to participate in decisions at this time. Ethical issues impacting care: As stated above. . Important Contacts * Tamanna Sandhu, daughter/ HCP: Margot Nolen is, per [place] statues bam care decision proxy. . Now in [facility] (#[phone]). Facilitation of conversations with Tamanna can be arranged through booking (#[phone]) in emergency situations to address goals of care.Ask for a [place] on staff as shifts rotate throughout the week. * Guillermo Roberts, daughter friend: [phone] (cell)- has frequent contact w Amie - has been very helpful. Prognosis Prognosis: Poor prognosis for meaningful recovery. . Code Status: Full Code Plan * HEALTHCARE DECISION-MAKING: Patient incapacitated secondary to clinical condition, unclear if he will regain capacity. Medical decision-making capacity will be reassessed once patient is extubated. Patient is , according to [place] statutes, health care proxy decision making falls to his only daughter, Tamanna. Now in [facility] (#[phone]). Facilitation of conversations with Tamanna can be arranged through booking (#[phone]) in emergency situations to address goals of care. Ask for a [place] on staff as shifts rotate throughout the week. * FULL CODE * GOALS OF CARE: Daughter previously elected to pursue aggressive care to include tracheostomy and PEG tube placement. S/P PEG tube 04/15/17. * SYMPTOMS: Dyspnea: secondary to respiratory failure. Remains intubated on mechanical ventilation. Failed SBT. Plan for trach 04/16/17 per nurse. Debility : Secondary to burden of disease, acute illness and prolonged hospitalization. Pain: secondary to prolonged hospitalization, tubes and bedrest. Oxycodone available as needed. Will monitor need, pt denies today. * Case discussed with bedside RNGladys. * Palliative care contact information has been provided to patient's daughter and her boyfriend during prior telephone conversation. * Palliative care will continue to follow further clarifications of goals of care as patient's clinical course evolves. . (JAN LIGHT) Attestation To help prompt me to consider important information that might be impacting today's encounter and assessment, information from prior notes written by myself or my colleagues may have been "brought forward" into today's note. My signature on this note, however, is an attestation that I personally performed the exam, history, and/or decision-making noted today, and, unless otherwise indicated, the interactions with patient, family, and staff as well as the review of records all occurred today. I also attest that the listed assessment and stated plan reflect my best clinical judgment today based on the combination of historical information, prior notes, and today's exam/ interactions. When time spent is documented, it refers only to time spent today by the signer, or if indicated, combined time spent today by collaborating physician/nurse practitioner. (JAN LIGHT) Collaborating MD Comments . Chart reviewed. Case discussed with palliative care CORONER TRANSPORT TECHNICIAN. Above CORONER TRANSPORT TECHNICIAN note reviewed and I concur. . (Greg Salas MD) JAN LIGHT April 15, 2017 16:06 Greg Salas MD April 30, 2017 16:48
[2017-04-15] MEDS: levETIRAcetam 1000 MG INJ 100 ML IV SCH (22:40)
[2017-04-15] MEDS: ACETAMINOPHEN 325 MG TAB PO PRN (22:42)
[2017-04-16] VITALS (21 sets, daily range): BP systolic 89–110; BP diastolic 58–83; PULSE 84–107; RESP 18–21; TEMP 99.7–100.5; O2SAT 94–100
[2017-04-16] MEDS: INSULIN NovoLIN REGULAR SUPPLEMENTAL SCALE SQ SCH ×6 (04:00→20:00)
[2017-04-16 05:39] LABS: BASOPHIL # 0.2 TH/MM3 (0-0.2); EOSINOPHIL # 0.4 TH/MM3 (0-0.4); EOSINOPHIL % 2.2 % (0.0-4.0); HEMO FLAGS DIFF FINAL; LYMPH % 10.8 % (9.0-44.0); LYMPHOCYTE # 1.7 TH/MM3 (1.0-4.8); MEAN CELL VOLUME 103.6 FL (80.0-100.0); MEAN CORPUSCULAR HEMOGLOBIN 34.5 PG (27.0-34.0); MEAN CORPUSCULAR HGB CONC 33.4 % (32.0-36.0); MONO % 5.7 % (0.0-8.0); NEUT % 80.3 % (16.0-70.0); PLATELET COUNT 162 TH/MM3 (150-450); RED CELL DISTRIBUTION WIDTH 16.3 % (11.6-17.2); WHITE BLOOD COUNT 16.2 TH/MM3 (4.0-11.0)
[2017-04-16 05:49] LABS: ALT (GPT) 81 U/L (12-78); ANION GAP 9 MEQ/L (5-15); AST (GOT) 149 U/L (15-37); CHLORIDE 114 MEQ/L (98-107); GLOMERULAR FILTRATION RATE 241 ML/MIN (>89); POTASSIUM 4.2 MEQ/L (3.5-5.1); SODIUM (NA) 145 MEQ/L (136-145)
[2017-04-16 05:50] LABS: BLOOD UREA NITROGEN 17 MG/DL (7-18)
[2017-04-16 05:51] LABS: ALKALINE PHOSPHATASE 403 U/L (45-117); TOTAL BILIRUBIN ADULT 2.1 MG/DL (0.2-1.0)
[2017-04-16] MEDS: FREE WATER G-TUBE SCH ×3 (06:27→18:00)
[2017-04-16] MEDS: ACETAMINOPHEN 325 MG TAB PO PRN (06:27)
[2017-04-16] MEDS: MIDODRINE 5 MG TAB PO SCH ×3 (06:27→21:14)
[2017-04-16] MEDS: CHLORHEXIDINE 0.12% (ORAL KIT) 15 ML CUP MT SCH ×2 (07:55→21:12)
[2017-04-16] MEDS ORDERED: MISC INFORMATION OTHER ONE (08:15)
[2017-04-16] MEDS: ARTIFICIAL TEARS OPTH SOLN 15 ML BTL EACH EYE SCH ×3 (08:49→18:10)
[2017-04-16] MEDS: MUPIROCIN 2% OINT 1 APPLIC/GM SYR EACH NARE SCH ×2 (08:50→21:00)
[2017-04-16] MEDS: PANTOPRAZOLE SODIUM 40 MG VIAL IV SCH (08:50)
[2017-04-16] MEDS: SODIUM CHLORIDE 0.9% FLUSH 10 ML FLUSH IV FLUSH SCH ×2 (08:50→21:13)
[2017-04-16] MEDS: SODIUM CHLORIDE 0.9% FLUSH 10 ML FLUSH IVF SCH (08:50)
[2017-04-16] MEDS: levETIRAcetam 1000 MG INJ 100 ML IV SCH ×2 (08:50→21:13)
[2017-04-16] MEDS: THIAMINE HCL 100 MG TAB PO SCH (08:51)
[2017-04-16] MEDS: NYSTATIN 100,000 U/GM PWD 15 GM BTL TOPICAL SCH ×2 (08:51→21:14)
[2017-04-16] MEDS: LACTULOSE SYRUP 20 GM/30 ML CUP PO SCH ×2 (08:51→21:14)
[2017-04-16] MEDS: RIFAXIMIN 550 MG TAB PO SCH ×2 (08:51→21:15)
[2017-04-16] MEDS: LACTOBACILLUS ACIDOPHILUS TAB PO SCH ×3 (08:51→18:10)
--- NOTE | 2017-04-16 09:17 | HHI.CCPN ---
Subjective Remarks/Hospital Course This is a 61-year-old male with a past history of alcohol abuse and a prior admission in 2015 for severe life-threatening hyponatremia at that time with a serum sodium of 98. He presents today with what he states is a 13 day history of worsening fatigue and weakness. He is very altered and is very difficult to understand the patient. What I can understand from him, is that at some point during these 13 days he has fallen and hit his face. Otherwise he states he lays on the couch, and has not gotten not much. He states he drinks 1 beer in the morning, and 1 beer in the afternoon. He does endorse taking some Xanax to help him sleep. He denies other drug use. He denies chest pain, shortness of breath, fever, chills, nausea, vomiting, abdominal pain. It is very difficult to get him to answer anymore questions about his medical history. His speech is very slurred and he is trying to talk about how he misses his daughter. Emergency department he was found to have a serum sodium of 99, a bilirubin of 8.9, lactate of 9.8, ammonia of 60, CK of 7000, elevated troponin of 4.9 with a normal MB ratio, creatinine 1.5, serum bicarbonate of 13. His white count is 12 , platelets 112. INR 1.9. His MELD calculates at 26. 4/2: Sodium level rapidly corrected overnight, likely secondary to appropriate correction of severe life-threatening dehydration. NS fluids changed to 1/2NS and correction slowed down significantly. sodium up to 130 this AM. CK downtrending. however, patient remains severely hypotensive requiring Levophed to maintain a map > 65 mmHg. This AM, serum K 1.6 (confirmed). started replacement with 200meq KCl and recheck K. 03/04: persists in vasoplegic distributive shock. afebrile. no evidence of infection. wbc downtrending. persists with severe life-threatening electrolyte derangements. passed swallow eval for nectar thick liquids. sodium stable at 131. ck downtrending. 03/05: persists in distributive shock. echo yesterday with EF 30%, globally decreased function. milrinone added yesterday with improvement in vasopressor requirement. still with multiple electrolyte abnormalities despite very aggressive replacement. very poor appetite. sodium stable at 131, which appears to be around baseline for him, looking back at prior records. also became agitated and delirious yesterday, likely secondary to etoh withdraw. started on Ativan and Librium. 03/06: electrolyte derangements persist. placed on continuous NaPhos infusion x 24h due to severe life-threatening hypophosphatemia. serial K, phos checks. weaning off levophed, milrinone persists. still poor appetite. sodium jumped from 132 to 139, but no significant mental status change, and we did not increase sodium load. 03/07: still requiring high electrolyte replacement. milrinone weaned to 0.375 mcg /kg/min overnight. still doing well with that. delirium persists. 03/08 Remains on milrinone. Electrolyte improving. Remains very lethargic, intermittently follows commands 03/09: Continues to be lethargic but wakes up follows some commands. Remains on milrinone will DC today. T max 100.1, urine output adequate sodium is 143 03/10: More awake alert, ate 50% of break fast. Will DC Dobhoff. Discontinue arterial and central lines. Delirium also improved, remains weak 03/11: doing much better this morning. no complaints. still with poor appetite. electrolytes improved. 03/20: We consulted for respiratory failure. Patient was last seen in room 1415 CMP receiving oral cares and became acutely hypoxic saturations 82% with coarse breath sounds. Halicat called. Patient was placed on a Venturi mask 50 % with desaturations to the mid 90s. He received Solu-Medrol 20 mg IV 1, Lasix 40 mg IV 1 and was transferred IM [facility] 521. Hemodynamically stable. Poor mentation 03/25: Reconsulted due to respiratory failure. Patient with gurgling/ transmitted upper airway sounds. Respiration the 50s. Decision made to orotracheally intubate. Noted to have been febrile with increased O2 course over the past 48 hours. 03/26: Afebrile. Requiring Nimbex drip for ventilator synchrony. Decreased urine output noted. Hemoglobin decreased likely dilutional. Tolerating tube feeding. Electrolytes been replaced. 03/27: Tmax 100.9. Currently 97.2. +6 L past 24 hours. Hemoglobin 8 transfuse overnight. Potassium 3. We'll discontinue Nimbex drip for vent synchrony today. 03/28: Afebrile. Negative fluid balance past 24 hours. Hemoglobin currently 9. Potassium 3.0. Currently on sedation vacation positive gag and otherwise unresponsive. 03/29: Tmax 103. Currently afebrile. Not tolerating tube feeds. Remains on Kiran-Synephrine. Did not tolerate sedation vacation back on Versed at 5 mg an hour fentanyl drip at 100 mcg an hour. One bowel movement. 03/30 Tube feeds remain on hold. On neosynephrine 40 mcg/min, RN states she has been weaning. Having BMs. On Versed 8 mg/hr and fentanyl 100 mcg/hr. 03/31 Off versed. Remains on fentanyl 100 mcg/hr. Having hiccups. Still on neosynephrine 40 mcg/min. Tolerating trickle feeds. Had 2 bowel movements 04/01: no meaningful change. still requires fentanyl for sedation. still on low- dose vasopressors. 04/02: no changes. still on levo @ 7 mcg/min. unable to wean off fentanyl due to tachycardia and tachypnea. 04/03: Off all sedation. On low-dose norepinephrine. Essentially unresponsive on the ventilator. Plan for likely withdrawal of care tomorrow 04/04: Off all sedation. Off all vasopressors. According to overnight RN was following commands. Will open eyes but not following commands this AM. 04/05 No events overnight. Afebrile On no sedation. 04/06: Resting comfortably in bed. Eyes are open. Moving head back and forth continuously. Weakly following commands with his upper and lower extremities. 04/07: Low-grade temperatures overnight. 99.8. Eyes are open. Moving back and forth. Positive BM. Continues to be following commands. 04/08 Patient remains intubated on no sedation awake and follows commands. Tmax 100.8 04/09 Patient remains intubated, tolerated CPAP all day and had good responses in UO with Bumex yesterday. Afebrile. 04/10: Tmax 99.1. Went back on set rate ventilation yesterday. Will attempt PSV trials throughout the day with goal to attempt extubation tomorrow. 04/11: Tmax 100.2. Currently 100.1. Did not tolerate weaning parameters with NIF -9 and unacceptable RSBI. Patient is arousable and follows commands eyes open 04/12: Omayra care reports tonic-clonic seizure activity this AM. Heart rate in the 140s during episode with violent shaking. On examination, patient's eyes are open and at baseline except currently not following commands. 04/13: had 2 seizures this morning, both resolved without medication interventions. Dr. Fabrizio navas'd at bedside earlier and ordered Cerebyx load. no other changes. plan for trach/peg next week Subjective: 04/14: still having breakthrough seizures on repeat EEG despite Cerebyx and Keppra. plan for PEG tomorrow. 04/15 No events overnight. Remains intubated. On no sedation. For PEG tube placement today. T:101.2 last night. 04/16 Patient remains intubated. For trach this afternoon. s/p PEG tube placement yesterday. Spiked fever with T:102.5 last night. Objective Vital Signs Date Time Temp Pulse Resp B/P Pulse Ox O2 Delivery O2 Flow Rate FiO2 04/16/17 08:34 97 35 04/16/17 08:00 86 04/16/17 08:00 99.7 21 98/67 Intake and Output 04/15/17 04/15/17 04/16/17 08:00 16:00 00:00 Intake Total 164 ml 550 ml 238 ml Output Total 500 ml 400 ml 1625 ml Balance -336 ml 150 ml -1387 ml Result Diagram: 04/16/17 0449 04/16/17 0449 Other Results Laboratory Tests Test 04/15/17 04/16/17 09:25 04:49 Urine Color YELLOW Urine Turbidity HAZY Urine pH 8.0 Urine Specific [place] 1.023 Urine Protein 30 mg/dL Urine Glucose (UA) NEG mg/dL Urine Ketones NEG mg/dL Urine Occult Blood NEG Urine Nitrite POS Urine Bilirubin NEG Urine Urobilinogen LESS THAN 2.0 MG/DL Urine Leukocyte Esterase LARGE Urine WBC 65 /hpf Urine WBC Clumps RARE Urine Bacteria MANY /hpf Urine Mucus FEW /lpf Urine Yeast with Hyphae FEW Urine Yeast (Budding) MOD Microscopic Urinalysis Comment CATH-CULTURE IND White Blood Count 16.2 TH/MM3 Red Blood Count 2.80 MIL/MM3 Hemoglobin 9.7 GM/DL Hematocrit 29.0 % Mean Corpuscular Volume 103.6 FL Mean Corpuscular Hemoglobin 34.5 PG Mean Corpuscular Hemoglobin 33.4 % Concent Red Cell Distribution Width 16.3 % Platelet Count 162 TH/MM3 Mean Platelet Volume 9.9 FL Neutrophils (%) (Auto) 80.3 % Lymphocytes (%) (Auto) 10.8 % Monocytes (%) (Auto) 5.7 % Eosinophils (%) (Auto) 2.2 % Basophils (%) (Auto) 1.0 % Neutrophils # (Auto) 13.0 TH/MM3 Lymphocytes # (Auto) 1.7 TH/MM3 Monocytes # (Auto) 0.9 TH/MM3 Eosinophils # (Auto) 0.4 TH/MM3 Basophils # (Auto) 0.2 TH/MM3 CBC Comment DIFF FINAL Differential Comment Sodium Level 145 MEQ/L Potassium Level 4.2 MEQ/L Chloride Level 114 MEQ/L Carbon Dioxide Level 22.0 MEQ/L Anion Gap 9 MEQ/L Blood Urea Nitrogen 17 MG/DL Creatinine 0.37 MG/DL Estimat Glomerular Filtration 241 ML/MIN Rate Random Glucose 63 MG/DL Calcium Level 8.1 MG/DL Total Bilirubin 2.1 MG/DL Aspartate Amino Transf 149 U/L (AST/SGOT) Alanine Aminotransferase 81 U/L (ALT/SGPT) Alkaline Phosphatase 403 U/L Total Protein 5.6 GM/DL Albumin 1.7 GM/DL Imaging Last Impressions Liver Ultrasound 04/15/17 0000 Signed Impressions: Service Date/Time: Saturday, April 15, 2017 09:24 - CONCLUSION: 1. Abnormal appearance of the pancreas with a nonspecific hypoechoic area involving the posterior part of the pancreas along the head and body region. Recommend CT scan of the abdomen with oral and IV contrast further evaluation. 2. Fatty infiltration throughout the liver. 3. There is thickening of the gallbladder wall at 6 mm. This is suggestive of chronic gallbladder disease. 4. Small amount of free fluid adjacent to the liver and spleen in the upper abdomen.. 5. Right-sided pleural effusion. Víctor Rosas MD Chest X-Ray 04/13/17 0600 Signed Impressions: Service Date/Time: Thursday, April 13, 2017 03:50 - CONCLUSION: Stable bilateral scattered pulmonary infiltrates. Víctor Rosas MD Abdomen X-Ray 04/13/17 0000 Signed Impressions: Service Date/Time: Thursday, April 13, 2017 10:36 - CONCLUSION: Dobbhoff tip in distal stomach. No evidence of obstruction. Logan Morgan MD Head CT 04/12/17 0000 Signed Impressions: Service Date/Time: Wednesday, April 12, 2017 21:30 - CONCLUSION: Pontine encephalomalacia. Left mastoiditis. Casper Alva MD Head Magnetic Resonance Angiography 03/28/17 0000 Signed Impressions: Service Date/Time: March 17:22 - CONCLUSION: Unremarkable examination. Bety Castillo MD Brain MRI 03/28/17 0000 Signed Impressions: Service Date/Time: March 17:22 - CONCLUSION: 1. 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 Small subacute ischemic bilateral thalamic infarcts. 2. There has been no significant change when compared to the prior exam. Yinka Harman MD Lower Extremity Ultrasound 03/25/17 0000 Signed Impressions: Service Date/Time: Saturday, March 25, 2017 22:17 - CONCLUSION: No evidence of DVT. Víctor Rosas MD CT Angiography 03/21/17 0000 Signed Impressions: Service Date/Time: March 00:33 - CONCLUSION: No evidence of pulmonary embolism is identified. Mild atelectasis left lung base. Fluid or phlegm within the trachea. Milo Muhammad MD Abdomen Ultrasound 03/20/17 0000 Signed Impressions: Service Date/Time: Monday, March 20, 2017 11:38 - CONCLUSION: 1. Hepatosplenomegaly without focal lesion. 2. Probable sludge within the lumen of the gallbladder. No intrahepatic duct. Cheo Martínez MD Shoulder X-Ray 03/02/17 1404 Signed Impressions: Service Date/Time: Thursday, March 02, 2017 15:18 - CONCLUSION: No evidence of recent bony injury. Deformity of the lateral left clavicle suggests old healed trauma. Cheo Martínez MD Maxillofacial CT 03/02/17 1342 Signed Impressions: Service Date/Time: Thursday, March 02, 2017 14:52 - CONCLUSION: Negative CT of the facial bones. Cheo Martínez MD Chest CT 03/02/17 1342 Signed Impressions: Service Date/Time: Thursday, March 02, 2017 15:04 - CONCLUSION: 1. Abnormal appearance of the lateral left clavicle suggesting a combination of acute and chronic bony injury. Fracture lucencies without bridging callus is seen the region of the coracoid process. 2. The lungs are clear. No evidence of pneumothorax. 3. Moderate size hiatus hernia. Cheo Martínez MD Cervical Spine CT 03/02/17 1342 Signed Impressions: Service Date/Time: Thursday, March 02, 2017 14:52 - CONCLUSION: Negative CT cervical spine. Cheo Martínez MD Abdomen/Pelvis CT 03/02/17 1342 Signed Impressions: Service Date/Time: Thursday, March 02, 2017 15:04 - CONCLUSION: Moderate size hiatus hernia. Scattered small sigmoid diverticula. Otherwise negative exam. Cheo Martínez MD Objective Remarks GENERAL: 61-year-old chronically ill appearing male, currently critically ill, orotracheally intubated. HEENT: Healing abrasion left side scalp. TIMOTHY. Scleral icterus. Very poor dentition. NECK: Trachea Midline RESP: Coarse breath sounds bilaterally. Few wheezes. CARDIOVASCULAR: Tachycardia, RR. ABDOMEN: Slightly distended but soft, bowel sounds present, tolerating tube feeds. : Johns in place with conrad urine output. mild/moderate scrotal edema. MUSCULOSKELETAL: No obvious deformity. 1+ edema all extremities NEUROLOGICAL: + gag and cough. Opens eyes and weakly following commands with upper and lower extremities. A/P Assessment and Plan Neuro/Psych: Osmotic demyelination syndrome Acute toxic metabolic encephalopathy secondary to hypercarbic respiratory failure Alcohol dependence History of EtOH induced seizure withdrawal Chronic benzodiazepine use Bilateral thalamic CVA Off all sedation oxycodone 5 mg every 4 hours as needed for pain MRI 03/21 - T1/T2 prolonged with sparing of this central appears final fibers. 2 small spots in the posterior central spinal tract consistent with Osmotic demyelination syndrome. ODS most likely from correction of Na, with underlying alcoholism. MRI brain 03/28 revealed subacute bilateral thalamic lacunar infarcts, CPM. CT head 03/05 revealed no acute intracranial findings Continue thiamine Seen by neurology/Dr. Mazariegos. EEG with persistent seizures. continue Keppra 500mg BID Neurology following. Respiratory: Acute hypoxemic hypercapnic respiratory failure PRVC 18/550/1.01/06/35 Continue with vent support keep sat >92% Ventilator bundle Bronchodilator therapy every 4 hours and as needed SBT daily as pablo. For trach today Cardiovascular: Chronic Systolic heart failure Echocardiogram 03/04 revealed EF 35-40%. Mild mR. Left atrium dilated. JANE 33 mmHg TSH within normal limits 0.8 s/p hydrocortisone. Continue midodrine 10 mg 3 times Monitor HR and BP keep MAP>65mmHg Renal/FEN: Acute Kidney Injury- Rhabdomyolysis- resolved ODS-see neuro Hypernatremia Monitor renal function, I/O's, electrolytes replacement per protocol. On Free water 200ml Q6 monitor sodium level. Place on D51/2NS@75ml/hr GI: EtOH cirrhosis Hyperammonemia Hiatal hernia Sigmoid diverticulosis History of umbilical hernia repair Hypoalbuminemia NPO for trach today (Jevity 1.5 with goal rate 60ml/hr) s/p PEG tube placement 04/15 On Xifaxan 550 twice a day/lactulose 30 twice a day. LFT is elevated. US Liver 04/15: Abnormal appearance of the pancreas with a nonspecific hypoechoic area involving the posterior part of the pancreas along the head and body region Fatty infiltration throughout the liver. There is thickening of the gallbladder wall at 6 mm. Suggestive of chronic gallbladder disease.. Small amount of free fluid adjacent to the liver and spleen in the upper abdomen.. Right-sided pleural effusion. Will check CT abdomen/pelvis w contrast, check Lipase level. 03/20 Ultrasound liver-hepatosplenomegaly. Sludge in gallbladder On IV Protonix Heme: Leukocytosis Macrocytic anemia Monitor CBC. No indications for transfusion of blood proximally postop B12 1452, Folate 15.2. TSH 0.8. ID: Likely aspiration pneumonia Escherichia coli UTI 03/11 - completed therapy Acinetobacter pneumonia Pertinent cultures 04/12 BC: NGTD 04/08 - blood cultures 2 - no growth 04/08 - sputum - no growth 04/05 - urine -C GLABRATA AND C. ALBICANS 03/29 - blood cultures 2 - NGTD 03/25 - sputum --Acinetobacter. 03/25 - urine - NGTD 03/25 - blood cultures 2 -no growth 03/22 - urine - no growth 03/22 - blood cultures 2 - negative 03/20 - blood cultures 2 - no growth 03/11 - urine - Escherichia coli 03/02 - blood cultures 2 - no growth Followed by Dr. Lisa/ID. s/p Unasyn. Off Flagyl po 03/24 Pancultured 04/15 ( Blood, sputum, urine) Procalcitonin level: 0.40, C-diff PCR negative 04/[address] on Zosyn and Give Vanco 1 gram x 1 dose. ID follow up. Endocrine: Hyperglycemia of critical illness History of hypothyroidism SSI with Accu-Cheks every 4 hours to maintain euglycemia MSK: History of old left clavicle fracture PT/OT evaluate and treat Access Peripheral IV. Central line if indicated Prophylaxis: GI - Protonix DVT - SCD/heparin subcutaneous Palliative care is following code status changed to full code per daughter's request. Tamanna Sandhu, daughter/ HCP: from [facility] [phone] now confirmed transferred to [facility] in [place] facility ) Code status -full code Level 3 Meir Garcia MD April 16, 2017 09:17
[2017-04-16] MEDS ORDERED: VANCOMYCIN INJ 1,000 MG in SODIUM CHLOR 0.9% 250 ML INJ 250 ML IV ONE (09:30)
[2017-04-16] MEDS ORDERED: DIATRIZOATE MEGLUM/DIATRIZOATE SOD 9 ML CUP PO ONE (09:45)
[2017-04-16] MEDS ORDERED: fentaNYL CITRATE 250 MCG/5 ML AMP IV PUSH ONE (10:30)
[2017-04-16] MEDS ORDERED: VECURONIUM BROMIDE 10 MG VIAL IV PUSH ONE (10:30)
[2017-04-16] MEDS ORDERED: MIDAZOLAM HCL 5 MG/5 ML VIAL IV PUSH ONE (10:30)
[2017-04-16] MEDS: DEXT 5%-NACL 0.45% 1000 ML INJ 1,000 ML IV SCH ×2 (10:45→21:15)
[2017-04-16] MEDS: PIPERACIL-TAZO 4.5 GM PREMIX 100 ML IV SCH ×3 (10:46→21:14)
[2017-04-16] MEDS ORDERED: IOHEXOL 350 MG/ML 10 ML VIAL (for RAD DIAG) IV ONE (11:31)
--- NOTE | 2017-04-16 12:29 | RADRPT ---
EXAM DATE/TIME: 04/16/2017 11:26 [place] COMPARISON: US ABDOMEN - LIVER, April 15, 2017, 9:24. INDICATIONS : Abnormal U/S. IV CONTRAST: 93 cc Omnipaque 350 (iohexol) IV ORAL CONTRAST: Prescribed oral contrast ingested. RADIATION DOSE: 11.79 CTDIvol (mGy) MEDICAL HISTORY : Non-responsive. SURGICAL HISTORY : Non-responsive. ENCOUNTER: Subsequent ACUITY: 1 month PAIN SCALE: Non-responsive LOCATION: lower quadrant TECHNIQUE: Volumetric scanning of the abdomen and pelvis was performed. Using automated exposure control and ad justment of the mA and/or kV according to patient size, radiation dose was kept as low as reasonably achievable to obtain optimal diagnostic quality images. FINDINGS: Moderate size bilateral pleural effusions are identified. There is bilateral lower lobe atelectasis v ersus pneumonia. There is a nodular contour to the liver which may reflect cirrhosis. The spleen is e nlarged. The gallbladder and pancreas are unremarkable. No intrahepatic or extrahepatic ductal dilata tion is seen. Moderate ascites is present. The portal vein is patent. Examination of the pelvis demonstrates no evidence of free fluid or pelvic mass. No abnormally enlarg ed inguinal or retroperitoneal lymph nodes are present. The bladder is unremarkable. There is diverti culosis without evidence of diverticulitis. A Johns catheter is present in the bladder. There is lam a in the subcutaneous tissues characteristic of anasarca. CONCLUSION: 1. Cirrhosis and splenomegaly. 2. Ascites 3. Anasarca 4. No pancreas mass identified Yinka Harman MD on April 16, 2017 at 12:23 Board Certified Radiologist. This report was verified electronically.
--- NOTE | 2017-04-16 13:01 | HHI.IDPN ---
Subjective Subjective Remarks Notes reviewed D/W RN Febrile since the weekend Restarted on Abx - Zosyn and Vanco On the vent - for trach today Last CXR stable infiltrates Sputum C/S with GNR, but G/S only with few WBC UA (+), UC with GNR WBC elevated at 16K BC negative No central line Has hodgson cath in place S/P PEG yesterday - not being used yet BP borderline, not on pressors Antibiotics Zosyn Vancomycin Lines PIV Past Medical History ETOHism Allergies: Coded Allergies: PEANUTS (Unverified Allergy, Severe, 03/02/17) *MDRO Multi-Drug Resistant Organism (Verified Adverse Reaction, Unknown, ) MRSA PCR screen POSITIVE - 03/02/17 MDR Acinetobacter (sputum) - 03/25/17 Objective . Vital Signs Date Time Temp Pulse Resp B/P Pulse Ox O2 Delivery O2 Flow Rate FiO2 04/16/17 12:00 35 04/16/17 12:00 90 04/16/17 12:00 99.9 91 18 89/58 96 04/16/17 11:44 97 35 04/16/17 11:20 100 100 04/16/17 10:00 91 04/16/17 08:34 97 35 04/16/17 08:00 86 04/16/17 08:00 99.7 87 21 98/67 98 04/16/17 08:00 35 04/16/17 06:00 93 04/16/17 04:36 97 35 04/16/17 04:00 35 04/16/17 04:00 100.5 95 20 110/83 96 04/16/17 04:00 95 04/16/17 02:00 91 04/16/17 01:38 95 35 04/16/17 00:00 100.5 93 18 104/71 98 04/16/17 00:00 93 04/16/17 00:00 35 04/15/17 22:00 104 04/15/17 21:54 97 35 04/15/17 20:00 101 04/15/17 20:00 35 04/15/17 20:00 102.5 101 18 103/71 97 04/15/17 19:53 96 35 04/15/17 18:17 35 04/15/17 18:00 101 04/15/17 16:41 96 35 04/15/17 16:15 99.7 97 18 102/68 96 04/15/17 16:00 95 18 100/68 96 04/15/17 15:45 94 18 101/65 97 04/15/17 15:30 94 18 102/71 97 04/15/17 15:15 95 18 100/69 97 04/15/17 15:00 94 18 99/69 97 04/15/17 14:45 93 18 101/69 98 04/15/17 14:30 94 18 103/69 98 04/15/17 14:27 100 04/15/17 14:18 94 18 99/66 98 04/15/17 14:00 93 18 99/67 97 04/15/17 13:45 93 18 88/58 94 04/15/17 13:37 98 18 94/62 95 04/15/17 13:35 101 18 95/65 97 04/15/17 13:33 104 19 103/72 98 04/15/17 13:30 94 18 94/66 98 04/15/17 13:28 94 19 87/61 97 04/15/17 13:25 95 18 97/69 96 04/15/17 13:22 96 18 97/69 95 04/15/17 13:00 97 18 96/67 95 04/15/17 04/15/17 04/16/17 15:00 23:00 07:00 Intake Total 550 ml 238 ml 139 ml Output Total 400 ml 1625 ml 425 ml Balance 150 ml -1387 ml -286 ml Intake Oral 0 ml 0 ml 0 ml IV Total 300 ml 238 ml 139 ml Tube Feeding 250 ml 0 ml 0 ml Output Urine Total 250 ml 1025 ml 225 ml Stool Total 150 ml 600 ml 200 ml . Laboratory Tests Test 04/15/17 04/16/17 04:40 04:49 White Blood Count 13.0 TH/MM3 16.2 TH/MM3 Red Blood Count 2.84 MIL/MM3 2.80 MIL/MM3 Hemoglobin 9.5 GM/DL 9.7 GM/DL Hematocrit 29.3 % 29.0 % Mean Corpuscular Volume 103.2 FL 103.6 FL Mean Corpuscular Hemoglobin 33.5 PG 34.5 PG Mean Corpuscular Hemoglobin 32.5 % 33.4 % Concent Red Cell Distribution Width 16.0 % 16.3 % Platelet Count 158 TH/MM3 162 TH/MM3 Mean Platelet Volume 9.2 FL 9.9 FL Neutrophils (%) (Auto) 78.7 % 80.3 % Lymphocytes (%) (Auto) 11.9 % 10.8 % Monocytes (%) (Auto) 6.8 % 5.7 % Eosinophils (%) (Auto) 2.2 % 2.2 % Basophils (%) (Auto) 0.4 % 1.0 % Neutrophils # (Auto) 10.2 TH/MM3 13.0 TH/MM3 Lymphocytes # (Auto) 1.5 TH/MM3 1.7 TH/MM3 Monocytes # (Auto) 0.9 TH/MM3 0.9 TH/MM3 Eosinophils # (Auto) 0.3 TH/MM3 0.4 TH/MM3 Basophils # (Auto) 0.1 TH/MM3 0.2 TH/MM3 CBC Comment DIFF FINAL DIFF FINAL Differential Comment Laboratory Tests Test 04/15/17 04/16/17 04:40 04:49 Sodium Level 146 MEQ/L 145 MEQ/L Potassium Level 3.8 MEQ/L 4.2 MEQ/L Chloride Level 113 MEQ/L 114 MEQ/L Carbon Dioxide Level 25.9 MEQ/L 22.0 MEQ/L Anion Gap 7 MEQ/L 9 MEQ/L Blood Urea Nitrogen 19 MG/DL 17 MG/DL Creatinine 0.43 MG/DL 0.37 MG/DL Estimat Glomerular Filtration 203 ML/MIN 241 ML/MIN Rate Random Glucose 88 MG/DL 63 MG/DL Calcium Level 7.9 MG/DL 8.1 MG/DL Total Bilirubin 1.7 MG/DL 2.1 MG/DL Aspartate Amino Transf 138 U/L 149 U/L (AST/SGOT) Alanine Aminotransferase 92 U/L 81 U/L (ALT/SGPT) Alkaline Phosphatase 416 U/L 403 U/L Total Protein 6.2 GM/DL 5.6 GM/DL Albumin 1.8 GM/DL 1.7 GM/DL Lipase 211 U/L Microbiology Date/Time Procedure Status Source Growth 04/15/17 09:25 Gram Stain - Final Resulted Sputum Endotracheal 04/15/17 09:25 Sputum Culture - Preliminary Resulted Gram Negative Sharad 04/15/17 09:25 Urine Culture - Preliminary Resulted Urine Catheterized Urine Gram Negative Sharad 04/15/17 10:40 Aerobic Blood Culture - Preliminary Resulted Blood Peripheral NO GROWTH IN 1 DAY 04/15/17 10:40 Anaerobic Blood Culture - Preliminary Resulted Blood Peripheral NO GROWTH IN 1 DAY 04/15/17 10:47 Aerobic Blood Culture - Preliminary Resulted Blood Peripheral NO GROWTH IN 1 DAY 04/15/17 10:47 Anaerobic Blood Culture - Preliminary Resulted Blood Peripheral NO GROWTH IN 1 DAY Imaging Liver Ultrasound 04/15/17 0000 Signed Impressions: Service Date/Time: Saturday, April 15, 2017 09:24 - CONCLUSION: 1. Abnormal appearance of the pancreas with a nonspecific hypoechoic area involving the posterior part of the pancreas along the head and body region. Recommend CT scan of the abdomen with oral and IV contrast further evaluation. 2. Fatty infiltration throughout the liver. 3. There is thickening of the gallbladder wall at 6 mm. This is suggestive of chronic gallbladder disease. 4. Small amount of free fluid adjacent to the liver and spleen in the upper abdomen.. 5. Right-sided pleural effusion. Víctor Rosas MD Chest X-Ray 04/13/17 0600 Signed Impressions: Service Date/Time: Thursday, April 13, 2017 03:50 - CONCLUSION: Stable bilateral scattered pulmonary infiltrates. Víctor Rosas MD Abdomen X-Ray 04/13/17 0000 Signed Impressions: Service Date/Time: Thursday, April 13, 2017 10:36 - CONCLUSION: Dobbhoff tip in distal stomach. No evidence of obstruction. Logan Morgan MD Head CT 04/12/17 0000 Signed Impressions: Service Date/Time: Wednesday, April 12, 2017 21:30 - CONCLUSION: Pontine encephalomalacia. Left mastoiditis. Casper Alva MD Head Magnetic Resonance Angiography 03/28/17 0000 Signed Impressions: Service Date/Time: March 17:22 - CONCLUSION: Unremarkable examination. Bety Castillo MD Brain MRI 03/28/17 0000 Signed Impressions: Service Date/Time: March 17:22 - CONCLUSION: 1. 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 Small subacute ischemic bilateral thalamic infarcts. 2. There has been no significant change when compared to the prior exam. Yinka Harman MD Lower Extremity Ultrasound 03/25/17 0000 Signed Impressions: Service Date/Time: Saturday, March 25, 2017 22:17 - CONCLUSION: No evidence of DVT. Víctor Rosas MD CT Angiography 03/21/17 0000 Signed Impressions: Service Date/Time: March 00:33 - CONCLUSION: No evidence of pulmonary embolism is identified. Mild atelectasis left lung base. Fluid or phlegm within the trachea. Milo Muhammad MD Abdomen Ultrasound 03/20/17 0000 Signed Impressions: Service Date/Time: Monday, March 20, 2017 11:38 - CONCLUSION: 1. Hepatosplenomegaly without focal lesion. 2. Probable sludge within the lumen of the gallbladder. No intrahepatic duct. Cheo Martínez MD Shoulder X-Ray 03/02/17 1404 Signed Impressions: Service Date/Time: Thursday, March 02, 2017 15:18 - CONCLUSION: No evidence of recent bony injury. Deformity of the lateral left clavicle suggests old healed trauma. Cheo Martínez MD Maxillofacial CT 03/02/17 1342 Signed Impressions: Service Date/Time: Thursday, March 02, 2017 14:52 - CONCLUSION: Negative CT of the facial bones. Cheo Martínez MD Chest CT 03/02/17 1342 Signed Impressions: Service Date/Time: Thursday, March 02, 2017 15:04 - CONCLUSION: 1. Abnormal appearance of the lateral left clavicle suggesting a combination of acute and chronic bony injury. Fracture lucencies without bridging callus is seen the region of the coracoid process. 2. The lungs are clear. No evidence of pneumothorax. 3. Moderate size hiatus hernia. Cheo Martínez MD Cervical Spine CT 03/02/17 1342 Signed Impressions: Service Date/Time: Thursday, March 02, 2017 14:52 - CONCLUSION: Negative CT cervical spine. Cheo Martínez MD Abdomen/Pelvis CT 03/02/17 1342 Signed Impressions: Service Date/Time: Thursday, March 02, 2017 15:04 - CONCLUSION: Moderate size hiatus hernia. Scattered small sigmoid diverticula. Otherwise negative exam. Cheo Martínez MD Chest X-Ray 04/08/17 0600 Signed Impressions: Service Date/Time: Saturday, April 08, 2017 05:10 - CONCLUSION: 1. Endotracheal tube and weighted feeding tube. 2. Bilateral pulmonary infiltrates. Some improvement from the prior study. Cheo Barrera Jr., MD Chest X-Ray 03/27/17 0600 Signed Impressions: Service Date/Time: Monday, March 27, 2017 02:33 - CONCLUSION: No significant interval change. Víctor Rosas MD Chest X-Ray 03/26/17 0600 Signed Impressions: Service Date/Time: Sunday, March 26, 2017 05:35 - CONCLUSION: Improving bilateral pulmonary infiltrates Víctor Rosas MD Chest X-Ray 03/25/17 1004 Signed Impressions: Service Date/Time: Saturday, March 25, 2017 10:03 - CONCLUSION: 1. Worsening bibasilar consolidation. 2. Endotracheal tube with tip at the thoracic inlet and should be advanced at least 3-4 cm. 3. Adequate placement of left jugular central line without pneumothorax. Logan Morgan MD Chest X-Ray 03/26/17 0600 Signed Impressions: Service Date/Time: Sunday, March 26, 2017 05:35 - CONCLUSION: Improving bilateral pulmonary infiltrates Víctor Rosas MD Lower Extremity Ultrasound 03/25/17 0000 Signed Impressions: Service Date/Time: Saturday, March 25, 2017 22:17 - CONCLUSION: No evidence of DVT. Víctor Rosas MD CT Angiography 03/21/17 0000 Signed Impressions: Service Date/Time: March 00:33 - CONCLUSION: No evidence of pulmonary embolism is identified. Mild atelectasis left lung base. Fluid or phlegm within the trachea. Milo Muhammad MD Brain MRI 03/20/17 0000 Signed Impressions: Service Date/Time: Monday, March 20, 2017 16:11 - CONCLUSION: Abnormal appearance to the ruthy with some extension into the cortical spinal tracts of the posterior thalamus was bilaterally. 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 Cheo Martínez MD Abdomen X-Ray 03/20/17 0000 Signed Impressions: Service Date/Time: Monday, March 20, 2017 18:12 - CONCLUSION: Tip of the Dobbhoff tube projecting towards the pylorus. Cheo Barrera Jr., MD Abdomen Ultrasound 03/20/17 0000 Signed Impressions: Service Date/Time: Monday, March 20, 2017 11:38 - CONCLUSION: 1. Hepatosplenomegaly without focal lesion. 2. Probable sludge within the lumen of the gallbladder. No intrahepatic duct. Cheo Martínez MD Shoulder X-Ray 03/02/17 1404 Signed Impressions: Service Date/Time: Thursday, March 02, 2017 15:18 - CONCLUSION: No evidence of recent bony injury. Deformity of the lateral left clavicle suggests old healed trauma. Cheo Martínez MD Maxillofacial CT 03/02/17 1342 Signed Impressions: Service Date/Time: Thursday, March 02, 2017 14:52 - CONCLUSION: Negative CT of the facial bones. Cheo Martínez MD Head CT 03/02/17 1342 Signed Impressions: Service Date/Time: Thursday, March 02, 2017 14:52 - CONCLUSION: 1. Prominent scalp swelling left frontal and parietal region. No skull fracture seen. 2. Intracranial contents are intact without acute finding. Cheo Martínez MD Chest CT 03/02/17 1342 Signed Impressions: Service Date/Time: Thursday, March 02, 2017 15:04 - CONCLUSION: 1. Abnormal appearance of the lateral left clavicle suggesting a combination of acute and chronic bony injury. Fracture lucencies without bridging callus is seen the region of the coracoid process. 2. The lungs are clear. No evidence of pneumothorax. 3. Moderate size hiatus hernia. Cheo Martínez MD Cervical Spine CT 03/02/17 1342 Signed Impressions: Service Date/Time: Thursday, March 02, 2017 14:52 - CONCLUSION: Negative CT cervical spine. Cheo Martínez MD Abdomen/Pelvis CT 03/02/17 1342 Signed Impressions: Service Date/Time: Thursday, March 02, 2017 15:04 - CONCLUSION: Moderate size hiatus hernia. Scattered small sigmoid diverticula. Otherwise negative exam. Cheo Martínez MD Chest X-Ray 03/25/17 1004 Signed Impressions: Service Date/Time: Saturday, March 25, 2017 10:03 - CONCLUSION: 1. Worsening bibasilar consolidation. 2. Endotracheal tube with tip at the thoracic inlet and should be advanced at least 3-4 cm. 3. Adequate placement of left jugular central line without pneumothorax. Logan Morgan MD Chest X-Ray 03/23/17 0000 Signed Impressions: Service Date/Time: Thursday, March 23, 2017 14:27 - CONCLUSION: 1. Feeding tube in place with what appears to be a loop in the hypopharynx. 2. Bibasilar areas of consolidation or atelectasis. Casper Vargas MD Physical Exam GENERAL: Sedated on the vent, opens eyes when stimulated SKIN: Warm and dry. No generalized rash. HEENT: Pupils equal round and reactive. Orally intubated. Poor dentition. A lot of oral secretions NECK: Supple, nontender, no meningeal signs. Previous line site ok CARDIOVASCULAR: Regular rate and rhythm without murmurs, gallops, or rubs. RESPIRATORY: Coarse rhonchi GASTROINTESTINAL: Abdomen mildly distended, bowel sounds are present and normoactive, no reaction to palpation. PEG site ok MUSCULOSKELETAL: Lower extremities without clubbing, cyanosis. Developing some pedal edema. No joint effusion. NEUROLOGICAL: Awake and focusing : Hodgson cath in place, urine looks better LINE: PIV no evidence of infection Assessment & Plan Remarks IMPRESSION Sepsis syndrome, due to PNA - on vent - has MDR Acinetobacter, S/P RX MDR Acinetobacter PNA - S/P Rx Recurrent fevers, etiology? - low grade now - has UTI - CXR stable infiltrates, only with few WBC on G/S - no line - ?drug fever (anticonvulsants) Septic shock, BP better, off pressors Known ETOH abuse Encephalopathy - sepsis, ETOH, CPM Respiratory failure, not tolerating CPAP - for trach today Diarrhea, C diff negative Nuvia in UC, repeat UA normal, without Rx Seizures, controlled - likely due to CPM - per records had previous ETOH withdrawal SZ RECOMMENDATION Follow C/S Follow temps On Zosyn, and got dose of VAnco Monitor progress For trach today D/W Umm Lui MD April 16, 2017 13:01
--- NOTE | 2017-04-16 14:34 | RADRPT ---
EXAM DATE/TIME: 04/16/2017 13:49 [facility] COMPARISON: CHEST SINGLE AP, April 13, 2017, 3:50. INDICATIONS : Post ET tube placement MEDICAL HISTORY : MRSA, CVA SURGICAL HISTORY : Craniotomy. ENCOUNTER: Subsequent ACUITY: 1 month PAIN SCORE: Non-responsive. LOCATION: Bilateral chest FINDINGS: A single view of the chest demonstrates cardiomegaly and bilateral patchy pulmonary opacities. Trache ostomy tube with tip in good position. Osseous structures are intact. CONCLUSION: 1. Bilateral pulmonary opacities. 2. Adequate placement of tracheostomy tube. Logan Morgan MD on April 16, 2017 at 14:30 Board Certified Radiologist. This report was verified electronically.
--- NOTE | 2017-04-16 15:16 | HHI.GIFU ---
Subjective Remarks Pt laying in bed in no apparent distress. TF about to be started by RN. Pt is s /p trach. No sign of bleeding. Objective Vitals I&O Vital Signs Date Time Temp Pulse Resp B/P Pulse Ox O2 Delivery O2 Flow Rate FiO2 04/16/17 14:00 84 04/16/17 13:15 100 100 04/16/17 12:00 35 04/16/17 12:00 90 04/16/17 12:00 99.9 91 18 89/58 96 04/16/17 11:44 97 35 04/16/17 11:20 100 100 04/16/17 10:00 91 04/16/17 08:34 97 35 04/16/17 08:00 86 04/16/17 08:00 99.7 87 21 98/67 98 04/16/17 08:00 35 04/16/17 06:00 93 04/16/17 04:36 97 35 04/16/17 04:00 35 04/16/17 04:00 100.5 95 20 110/83 96 04/16/17 04:00 95 04/16/17 02:00 91 04/16/17 01:38 95 35 04/16/17 00:00 100.5 93 18 104/71 98 04/16/17 00:00 93 04/16/17 00:00 35 04/15/17 22:00 104 04/15/17 21:54 97 35 04/15/17 20:00 101 04/15/17 20:00 35 04/15/17 20:00 102.5 101 18 103/71 97 04/15/17 19:53 96 35 04/15/17 18:17 35 04/15/17 18:00 101 04/15/17 16:41 96 35 04/15/17 16:15 99.7 97 18 102/68 96 04/15/17 16:00 95 18 100/68 96 04/15/17 15:45 94 18 101/65 97 04/15/17 15:30 94 18 102/71 97 04/15/17 15:15 95 18 100/69 97 I/O 04/15/17 04/15/17 04/15/17 04/16/17 04/16/17 04/16/17 07:00 15:00 23:00 07:00 15:00 23:00 Intake Total 164 ml 550 ml 238 ml 139 ml 521 ml Output Total 500 ml 400 ml 1625 ml 425 ml 500 ml Balance -336 ml 150 ml -1387 ml -286 ml 21 ml Intake Oral 0 ml 0 ml 0 ml 0 ml 0 ml IV Total 164 ml 300 ml 238 ml 139 ml 521 ml Tube Feeding 0 ml 250 ml 0 ml 0 ml 0 ml Output Urine Total 200 ml 250 ml 1025 ml 225 ml 350 ml Stool Total 300 ml 150 ml 600 ml 200 ml 150 ml Laboratory Laboratory Tests Test 04/16/17 04:49 White Blood Count 16.2 Red Blood Count 2.80 Hemoglobin 9.7 Hematocrit 29.0 Mean Corpuscular Volume 103.6 Mean Corpuscular Hemoglobin 34.5 Mean Corpuscular Hemoglobin 33.4 Concent Red Cell Distribution Width 16.3 Platelet Count 162 Mean Platelet Volume 9.9 Neutrophils (%) (Auto) 80.3 Lymphocytes (%) (Auto) 10.8 Monocytes (%) (Auto) 5.7 Eosinophils (%) (Auto) 2.2 Basophils (%) (Auto) 1.0 Neutrophils # (Auto) 13.0 Lymphocytes # (Auto) 1.7 Monocytes # (Auto) 0.9 Eosinophils # (Auto) 0.4 Basophils # (Auto) 0.2 CBC Comment DIFF FINAL Differential Comment Sodium Level 145 Potassium Level 4.2 Chloride Level 114 Carbon Dioxide Level 22.0 Anion Gap 9 Blood Urea Nitrogen 17 Creatinine 0.37 Estimat Glomerular Filtration 241 Rate Random Glucose 63 Calcium Level 8.1 Total Bilirubin 2.1 Aspartate Amino Transf 149 (AST/SGOT) Alanine Aminotransferase 81 (ALT/SGPT) Alkaline Phosphatase 403 Total Protein 5.6 Albumin 1.7 Lipase 211 Date/Time Procedure Status Source Growth 04/15/17 10:47 Aerobic Blood Culture - Preliminary Resulted Blood Peripheral NO GROWTH IN 1 DAY 04/15/17 10:47 Anaerobic Blood Culture - Preliminary Resulted Blood Peripheral NO GROWTH IN 1 DAY 04/15/17 09:25 Urine Culture - Preliminary Resulted Urine Catheterized Urine Gram Negative Sharad 04/15/17 09:25 Gram Stain - Final Resulted Sputum Endotracheal 04/15/17 09:25 Sputum Culture - Preliminary Resulted Gram Negative Sharad Imaging Last Impressions Chest X-Ray 04/16/17 0000 Signed Impressions: Service Date/Time: Sunday, April 16, 2017 13:49 - CONCLUSION: 1. Bilateral pulmonary opacities. 2. Adequate placement of tracheostomy tube. Logan Morgan MD Abdomen/Pelvis CT 04/16/17 0000 Signed Impressions: Service Date/Time: Sunday, April 16, 2017 11:26 - CONCLUSION: 1. Cirrhosis and splenomegaly. 2. Ascites 3. Anasarca 4. No pancreas mass identified Yinka Harman MD Liver Ultrasound 04/15/17 0000 Signed Impressions: Service Date/Time: Saturday, April 15, 2017 09:24 - CONCLUSION: 1. Abnormal appearance of the pancreas with a nonspecific hypoechoic area involving the posterior part of the pancreas along the head and body region. Recommend CT scan of the abdomen with oral and IV contrast further evaluation. 2. Fatty infiltration throughout the liver. 3. There is thickening of the gallbladder wall at 6 mm. This is suggestive of chronic gallbladder disease. 4. Small amount of free fluid adjacent to the liver and spleen in the upper abdomen.. 5. Right-sided pleural effusion. Víctor Rosas MD Abdomen X-Ray 04/13/17 0000 Signed Impressions: Service Date/Time: Thursday, April 13, 2017 10:36 - CONCLUSION: Dobbhoff tip in distal stomach. No evidence of obstruction. Logan Morgan MD Head CT 04/12/17 0000 Signed Impressions: Service Date/Time: Wednesday, April 12, 2017 21:30 - CONCLUSION: Pontine encephalomalacia. Left mastoiditis. Casper Alva MD Head Magnetic Resonance Angiography 03/28/17 0000 Signed Impressions: Service Date/Time: March 17:22 - CONCLUSION: Unremarkable examination. Bety Castillo MD Brain MRI 03/28/17 0000 Signed Impressions: Service Date/Time: March 17:22 - CONCLUSION: 1. 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 Small subacute ischemic bilateral thalamic infarcts. 2. There has been no significant change when compared to the prior exam. Yinka Harman MD Lower Extremity Ultrasound 03/25/17 0000 Signed Impressions: Service Date/Time: Saturday, March 25, 2017 22:17 - CONCLUSION: No evidence of DVT. Víctor Rosas MD CT Angiography 03/21/17 0000 Signed Impressions: Service Date/Time: March 00:33 - CONCLUSION: No evidence of pulmonary embolism is identified. Mild atelectasis left lung base. Fluid or phlegm within the trachea. Milo Muhammad MD Abdomen Ultrasound 03/20/17 0000 Signed Impressions: Service Date/Time: Monday, March 20, 2017 11:38 - CONCLUSION: 1. Hepatosplenomegaly without focal lesion. 2. Probable sludge within the lumen of the gallbladder. No intrahepatic duct. Cheo Martínez MD Shoulder X-Ray 03/02/17 1404 Signed Impressions: Service Date/Time: Thursday, March 02, 2017 15:18 - CONCLUSION: No evidence of recent bony injury. Deformity of the lateral left clavicle suggests old healed trauma. Cheo Martínez MD Maxillofacial CT 03/02/17 1342 Signed Impressions: Service Date/Time: Thursday, March 02, 2017 14:52 - CONCLUSION: Negative CT of the facial bones. Cheo Martínez MD Chest CT 03/02/17 1342 Signed Impressions: Service Date/Time: Thursday, March 02, 2017 15:04 - CONCLUSION: 1. Abnormal appearance of the lateral left clavicle suggesting a combination of acute and chronic bony injury. Fracture lucencies without bridging callus is seen the region of the coracoid process. 2. The lungs are clear. No evidence of pneumothorax. 3. Moderate size hiatus hernia. Cheo Martínez MD Cervical Spine CT 03/02/17 1342 Signed Impressions: Service Date/Time: Thursday, March 02, 2017 14:52 - CONCLUSION: Negative CT cervical spine. Cheo Martínez MD Physical Exam HEENT: normocephalic; atraumatic; CHEST: coarse sounds, on vent to trach CARDIAC: Regular rate and rhythm with no murmur gallop or rubs. ABDOMEN: Soft, nondistended, nontender; no hepatosplenomegaly; bowel sounds are present in all four quadrants.Peg site free swelling, purulent drainage EXTREMITIES: No clubbing, cyanosis, BLE 1+ pitting edema, general edema, scrotal edema SKIN: Normal; no rash; no jaundice. 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 s/p PEG. ready to start TF. Pt critically ill in intensive medical unit, requiring prolonged ventilation. GI consulted for PEG. Material Control Specialist recommends Jevity 1.5 is at goal rate of 60 ml/hr Tamanna Sandhu is listed as next of kin to discuss procedure, risks, benefits. Attempted to call this number, it is booking for [facility]. They took my name and number and will have the patient's daughter call me when she is able. - Elevated LFTs/Liver cirrhosis. Pt with hx of alcohol abuse. MELD 25. T. Bili 2.1, AST 149, 81, Alk Phosph 403- likely combination of alcohol abuse on underlying cirrhosis, possible some congestive component. - Coagulopathy. improving PT 12.6, INR 1.1. - Anemia. HH 9.7/29.0.graduallyimproving No active bleeding. - Resp. Failure/PNA. Vent per CCM. trach. 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 thalamic CVA. S/P Neuro eval. Lactulose, Xifaxan. Na 146. - MAXIME with electrolyte abnormalities. Per renal/CCM - Leukocytosis with UTI (S/P Tx), PNA. - CHF, Hx hypothyroidism per CCM PLAN: - Start TF - Material Control Specialist recommends Jevity 1.5 is at goal rate of 60 ml/hr give after 6 hours - continue to monitor - supportive care This pt seen by myself and Dr Alejandra and this note is written on his behalf Jackie Styles April 16, 2017 15:16
--- NOTE | 2017-04-16 18:13 | MP ---
cc: JOSÉ MIGUEL LUNDBERG M.D. DATE OF SURGERY 04/16/2017 PREOPERATIVE DIAGNOSIS Ventilator dependence, failure to wean. POSTOPERATIVE DIAGNOSIS Ventilator dependence, failure to wean. PROCEDURE PERFORMED Number 8 percutaneous dilatation tracheostomy. SURGEON José Miguel Lundberg MD TRAM INSPECTOR [place] ANESTHESIA General per Dr. Garcia with local. COMPLICATIONS None. INDICATION FOR PROCEDURE Mr. Sandhu is an unfortunate 61-year-old gentleman who has been [place] [facility] [place] quite some [place]. He has failed multiple attempts at ventilator weaning. Surgical consultation was requested for tracheostomy placement. Risks and benefits were reviewed with the patient's daughter by telephone and she was agreeable to proceed. DETAILS The patient remained in the [facility], bed [facility]. He was identified. A time-out was taken. The anterior neck was then prepped and draped in standard surgical fashion. Dr. Garcia and nursing staff administered general anesthetic with sedation and paralytics and pain medicine. Anterior neck was then prepped and draped in standard surgical fashion. 1% lidocaine was injected into the skin and subcutaneous tissue one fingerbreadth above the sternal notch. A vertical incision was then made. Dissection was carried down through subcutaneous tissue to the trachea. Trachea was palpated. A bronchoscopy light was confirmed. The trachea was then accessed with an 18-gauge angiocatheter needle. Placement was confirmed by direct visualization via the bronchoscope. Guidewire was then advanced and followed down to the joanie. An anterior tracheotomy then performed using the tracheal punch from the kit. The blue rhino was then passed on three successive times down to the level of the black line. A number 8 Mitzi tracheostomy tube was then inserted over a dilator into the trachea without any difficulty. The balloon was inflated. Guidewire and introducer were then removed. Direct visualization via the bronchoscope was used to confirm the placement. The bronchoscope was also inserted down the tracheostomy tube and the joanie was confirmed. No bleeding was noted. The patient was then connected to the ventilator and found to have a positive end-tidal CO2 and excellent tidal volumes. Tracheostomy tube was then secured to the patients neck using a 2-0 Prolene suture interrupted x2. The patient tolerated the procedure well without any desaturation or hemodynamic instability. Postprocedure chest x-ray has been ordered. Please note the SERGO reference assistant was medically necessary due to her specialized surgical skills and knowledge of my surgical technique. MD SELENA Callahan /1:45 PM /6:05 PM RUCHI
[2017-04-16] MEDS: RESP: ALBUTEROL 2.5 MG/3 ML NEB (PRN) INH (20:27)
[2017-04-17] VITALS (24 sets, daily range): BP systolic 92–107; BP diastolic 59–68; PULSE 96–109; RESP 18–24; TEMP 98.4–100.3; O2SAT 95–99
[2017-04-17] MEDS: ACETAMINOPHEN 325 MG TAB PO PRN (00:24)
[2017-04-17] MEDS: PIPERACIL-TAZO 4.5 GM PREMIX 100 ML IV SCH ×2 (04:27→13:17)
[2017-04-17] MEDS: INSULIN NovoLIN REGULAR SUPPLEMENTAL SCALE SQ SCH ×6 (04:30→21:11)
[2017-04-17] MEDS: FREE WATER G-TUBE SCH ×2 (04:55)
[2017-04-17] MEDS: MIDODRINE 5 MG TAB PO SCH ×3 (04:55→21:09)
[2017-04-17 06:11] LABS: AUTOMATED NEUTROPHIL # 13.9 TH/MM3 (1.8-7.7); BASOPHIL # 0.1 TH/MM3 (0-0.2); BASOPHIL % 0.8 % (0.0-2.0); EOSINOPHIL # 0.3 TH/MM3 (0-0.4); HEMATOCRIT 26.2 % (39.0-51.0); HEMO FLAGS DIFF FINAL; LYMPH % 10.5 % (9.0-44.0); LYMPHOCYTE # 1.8 TH/MM3 (1.0-4.8); MEAN CORPUSCULAR HEMOGLOBIN 33.8 PG (27.0-34.0); MEAN CORPUSCULAR HGB CONC 33.1 % (32.0-36.0); MONO % 6.4 % (0.0-8.0); NEUT % 80.3 % (16.0-70.0); PLATELET COUNT 176 TH/MM3 (150-450); RED BLOOD COUNT 2.56 MIL/MM3 (4.50-5.90); RED CELL DISTRIBUTION WIDTH 16.3 % (11.6-17.2); WHITE BLOOD COUNT 17.3 TH/MM3 (4.0-11.0)
[2017-04-17 06:36] LABS: ALKALINE PHOSPHATASE 526 U/L (45-117); ALT (GPT) 88 U/L (12-78); ANION GAP 12 MEQ/L (5-15); AST (GOT) 159 U/L (15-37); BICARBONATE 20.4 MEQ/L (21.0-32.0); BLOOD UREA NITROGEN 15 MG/DL (7-18); CHLORIDE 110 MEQ/L (98-107); GLOMERULAR FILTRATION RATE 130 ML/MIN (>89); MAGNESIUM 1.8 MG/DL (1.5-2.5); SODIUM (NA) 142 MEQ/L (136-145); TOTAL BILIRUBIN ADULT 1.5 MG/DL (0.2-1.0)
[2017-04-17 06:42] LABS: POTASSIUM 2.9 MEQ/L (3.5-5.1)
[2017-04-17] MEDS: POTASSIUM CHLOR 20 MEQ PREMIX 100 ML IV PRN ×4 (07:35→15:17)
[2017-04-17] MEDS: CHLORHEXIDINE 0.12% (ORAL KIT) 15 ML CUP MT SCH ×2 (08:00→20:00)
[2017-04-17] MEDS: SODIUM CHLORIDE 0.9% FLUSH 10 ML FLUSH IV FLUSH SCH ×2 (08:34→21:09)
[2017-04-17] MEDS: levETIRAcetam 1000 MG INJ 100 ML IV SCH ×2 (08:34→21:09)
[2017-04-17] MEDS: PANTOPRAZOLE SODIUM 40 MG VIAL IV SCH (08:35)
[2017-04-17] MEDS: LACTULOSE SYRUP 20 GM/30 ML CUP PO SCH ×2 (08:35→21:09)
[2017-04-17] MEDS: ARTIFICIAL TEARS OPTH SOLN 15 ML BTL EACH EYE SCH ×3 (08:36→18:34)
[2017-04-17] MEDS: LACTOBACILLUS ACIDOPHILUS TAB PO SCH ×3 (08:36→18:34)
[2017-04-17] MEDS: RIFAXIMIN 550 MG TAB PO SCH ×2 (08:36→21:09)
[2017-04-17] MEDS: THIAMINE HCL 100 MG TAB PO SCH (08:36)
[2017-04-17] MEDS: NYSTATIN 100,000 U/GM PWD 15 GM BTL TOPICAL SCH ×2 (08:36→21:09)
--- NOTE | 2017-04-17 08:50 | HHI.CCPN ---
Subjective Remarks/Hospital Course This is a 61-year-old male with a past history of alcohol abuse and a prior admission in 2015 for severe life-threatening hyponatremia at that time with a serum sodium of 98. He presents today with what he states is a 13 day history of worsening fatigue and weakness. He is very altered and is very difficult to understand the patient. What I can understand from him, is that at some point during these 13 days he has fallen and hit his face. Otherwise he states he lays on the couch, and has not gotten not much. He states he drinks 1 beer in the morning, and 1 beer in the afternoon. He does endorse taking some Xanax to help him sleep. He denies other drug use. He denies chest pain, shortness of breath, fever, chills, nausea, vomiting, abdominal pain. It is very difficult to get him to answer anymore questions about his medical history. His speech is very slurred and he is trying to talk about how he misses his daughter. Emergency department he was found to have a serum sodium of 99, a bilirubin of 8.9, lactate of 9.8, ammonia of 60, CK of 7000, elevated troponin of 4.9 with a normal MB ratio, creatinine 1.5, serum bicarbonate of 13. His white count is 12 , platelets 112. INR 1.9. His MELD calculates at 26. 4/2: Sodium level rapidly corrected overnight, likely secondary to appropriate correction of severe life-threatening dehydration. NS fluids changed to 1/2NS and correction slowed down significantly. sodium up to 130 this AM. CK downtrending. however, patient remains severely hypotensive requiring Levophed to maintain a map > 65 mmHg. This AM, serum K 1.6 (confirmed). started replacement with 200meq KCl and recheck K. 03/04: persists in vasoplegic distributive shock. afebrile. no evidence of infection. wbc downtrending. persists with severe life-threatening electrolyte derangements. passed swallow eval for nectar thick liquids. sodium stable at 131. ck downtrending. 03/05: persists in distributive shock. echo yesterday with EF 30%, globally decreased function. milrinone added yesterday with improvement in vasopressor requirement. still with multiple electrolyte abnormalities despite very aggressive replacement. very poor appetite. sodium stable at 131, which appears to be around baseline for him, looking back at prior records. also became agitated and delirious yesterday, likely secondary to etoh withdraw. started on Ativan and Librium. 03/06: electrolyte derangements persist. placed on continuous NaPhos infusion x 24h due to severe life-threatening hypophosphatemia. serial K, phos checks. weaning off levophed, milrinone persists. still poor appetite. sodium jumped from 132 to 139, but no significant mental status change, and we did not increase sodium load. 03/07: still requiring high electrolyte replacement. milrinone weaned to 0.375 mcg /kg/min overnight. still doing well with that. delirium persists. 03/08 Remains on milrinone. Electrolyte improving. Remains very lethargic, intermittently follows commands 03/09: Continues to be lethargic but wakes up follows some commands. Remains on milrinone will DC today. T max 100.1, urine output adequate sodium is 143 03/10: More awake alert, ate 50% of break fast. Will DC Dobhoff. Discontinue arterial and central lines. Delirium also improved, remains weak 03/11: doing much better this morning. no complaints. still with poor appetite. electrolytes improved. 03/20: We consulted for respiratory failure. Patient was last seen in room 1415 CMP receiving oral cares and became acutely hypoxic saturations 82% with coarse breath sounds. Halicat called. Patient was placed on a Venturi mask 50 % with desaturations to the mid 90s. He received Solu-Medrol 20 mg IV 1, Lasix 40 mg IV 1 and was transferred IM [facility] 521. Hemodynamically stable. Poor mentation 03/25: Reconsulted due to respiratory failure. Patient with gurgling/ transmitted upper airway sounds. Respiration the 50s. Decision made to orotracheally intubate. Noted to have been febrile with increased O2 course over the past 48 hours. 03/26: Afebrile. Requiring Nimbex drip for ventilator synchrony. Decreased urine output noted. Hemoglobin decreased likely dilutional. Tolerating tube feeding. Electrolytes been replaced. 03/27: Tmax 100.9. Currently 97.2. +6 L past 24 hours. Hemoglobin 8 transfuse overnight. Potassium 3. We'll discontinue Nimbex drip for vent synchrony today. 03/28: Afebrile. Negative fluid balance past 24 hours. Hemoglobin currently 9. Potassium 3.0. Currently on sedation vacation positive gag and otherwise unresponsive. 03/29: Tmax 103. Currently afebrile. Not tolerating tube feeds. Remains on Kiran-Synephrine. Did not tolerate sedation vacation back on Versed at 5 mg an hour fentanyl drip at 100 mcg an hour. One bowel movement. 03/30 Tube feeds remain on hold. On neosynephrine 40 mcg/min, RN states she has been weaning. Having BMs. On Versed 8 mg/hr and fentanyl 100 mcg/hr. 03/31 Off versed. Remains on fentanyl 100 mcg/hr. Having hiccups. Still on neosynephrine 40 mcg/min. Tolerating trickle feeds. Had 2 bowel movements 04/01: no meaningful change. still requires fentanyl for sedation. still on low- dose vasopressors. 04/02: no changes. still on levo @ 7 mcg/min. unable to wean off fentanyl due to tachycardia and tachypnea. 04/03: Off all sedation. On low-dose norepinephrine. Essentially unresponsive on the ventilator. Plan for likely withdrawal of care tomorrow 04/04: Off all sedation. Off all vasopressors. According to overnight RN was following commands. Will open eyes but not following commands this AM. 04/05 No events overnight. Afebrile On no sedation. 04/06: Resting comfortably in bed. Eyes are open. Moving head back and forth continuously. Weakly following commands with his upper and lower extremities. 04/07: Low-grade temperatures overnight. 99.8. Eyes are open. Moving back and forth. Positive BM. Continues to be following commands. 04/08 Patient remains intubated on no sedation awake and follows commands. Tmax 100.8 04/09 Patient remains intubated, tolerated CPAP all day and had good responses in UO with Bumex yesterday. Afebrile. 04/10: Tmax 99.1. Went back on set rate ventilation yesterday. Will attempt PSV trials throughout the day with goal to attempt extubation tomorrow. 04/11: Tmax 100.2. Currently 100.1. Did not tolerate weaning parameters with NIF -9 and unacceptable RSBI. Patient is arousable and follows commands eyes open 04/12: Omayra care reports tonic-clonic seizure activity this AM. Heart rate in the 140s during episode with violent shaking. On examination, patient's eyes are open and at baseline except currently not following commands. 04/13: had 2 seizures this morning, both resolved without medication interventions. Dr. Fabrizio navas'd at bedside earlier and ordered Cerebyx load. no other changes. plan for trach/peg next week Subjective: 04/14: still having breakthrough seizures on repeat EEG despite Cerebyx and Keppra. plan for PEG tomorrow. 04/15 No events overnight. Remains intubated. On no sedation. For PEG tube placement today. T:101.2 last night. 04/16 Patient remains intubated. For trach this afternoon. s/p PEG tube placement yesterday. Spiked fever with T:102.5 last night. 04/17 Patient s/p trach yesterday. T: 100.3 at midnight. Objective Vital Signs Date Time Temp Pulse Resp B/P Pulse Ox O2 Delivery O2 Flow Rate FiO2 04/17/17 06:00 101 04/17/17 05:15 95 35 04/17/17 04:00 98.8 21 92/61 Intake and Output 04/16/17 04/16/17 04/16/17 07:59 15:59 23:59 Intake Total 139 ml 521 ml 1086 ml Output Total 425 ml 500 ml 1100 ml Balance -286 ml 21 ml -14 ml Result Diagram: 04/17/17 0539 04/17/17 0539 Other Results Laboratory Tests Test 04/17/17 05:39 White Blood Count 17.3 TH/MM3 Red Blood Count 2.56 MIL/MM3 Hemoglobin 8.7 GM/DL Hematocrit 26.2 % Mean Corpuscular Volume 102.0 FL Mean Corpuscular Hemoglobin 33.8 PG Mean Corpuscular Hemoglobin 33.1 % Concent Red Cell Distribution Width 16.3 % Platelet Count 176 TH/MM3 Mean Platelet Volume 9.0 FL Neutrophils (%) (Auto) 80.3 % Lymphocytes (%) (Auto) 10.5 % Monocytes (%) (Auto) 6.4 % Eosinophils (%) (Auto) 2.0 % Basophils (%) (Auto) 0.8 % Neutrophils # (Auto) 13.9 TH/MM3 Lymphocytes # (Auto) 1.8 TH/MM3 Monocytes # (Auto) 1.1 TH/MM3 Eosinophils # (Auto) 0.3 TH/MM3 Basophils # (Auto) 0.1 TH/MM3 CBC Comment DIFF FINAL Differential Comment Sodium Level 142 MEQ/L Potassium Level 2.9 MEQ/L Chloride Level 110 MEQ/L Carbon Dioxide Level 20.4 MEQ/L Anion Gap 12 MEQ/L Blood Urea Nitrogen 15 MG/DL Creatinine 0.63 MG/DL Estimat Glomerular Filtration 130 ML/MIN Rate Random Glucose 137 MG/DL Calcium Level 7.9 MG/DL Phosphorus Level 2.7 MG/DL Magnesium Level 1.8 MG/DL Total Bilirubin 1.5 MG/DL Aspartate Amino Transf 159 U/L (AST/SGOT) Alanine Aminotransferase 88 U/L (ALT/SGPT) Alkaline Phosphatase 526 U/L Total Protein 5.5 GM/DL Albumin 1.6 GM/DL Imaging Last Impressions Chest X-Ray 04/16/17 0000 Signed Impressions: Service Date/Time: Sunday, April 16, 2017 13:49 - CONCLUSION: 1. Bilateral pulmonary opacities. 2. Adequate placement of tracheostomy tube. Logan Morgan MD Abdomen/Pelvis CT 04/16/17 0000 Signed Impressions: Service Date/Time: Sunday, April 16, 2017 11:26 - CONCLUSION: 1. Cirrhosis and splenomegaly. 2. Ascites 3. Anasarca 4. No pancreas mass identified Yinka Harman MD Liver Ultrasound 04/15/17 0000 Signed Impressions: Service Date/Time: Saturday, April 15, 2017 09:24 - CONCLUSION: 1. Abnormal appearance of the pancreas with a nonspecific hypoechoic area involving the posterior part of the pancreas along the head and body region. Recommend CT scan of the abdomen with oral and IV contrast further evaluation. 2. Fatty infiltration throughout the liver. 3. There is thickening of the gallbladder wall at 6 mm. This is suggestive of chronic gallbladder disease. 4. Small amount of free fluid adjacent to the liver and spleen in the upper abdomen.. 5. Right-sided pleural effusion. Víctor Rosas MD Abdomen X-Ray 04/13/17 0000 Signed Impressions: Service Date/Time: Thursday, April 13, 2017 10:36 - CONCLUSION: Dobbhoff tip in distal stomach. No evidence of obstruction. Logan Morgan MD Head CT 04/12/17 0000 Signed Impressions: Service Date/Time: Wednesday, April 12, 2017 21:30 - CONCLUSION: Pontine encephalomalacia. Left mastoiditis. Casper Alva MD Head Magnetic Resonance Angiography 03/28/17 0000 Signed Impressions: Service Date/Time: March 17:22 - CONCLUSION: Unremarkable examination. Bety Castillo MD Brain MRI 03/28/17 0000 Signed Impressions: Service Date/Time: March 17:22 - CONCLUSION: 1. 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 Small subacute ischemic bilateral thalamic infarcts. 2. There has been no significant change when compared to the prior exam. Yinka Harman MD Lower Extremity Ultrasound 03/25/17 0000 Signed Impressions: Service Date/Time: Saturday, March 25, 2017 22:17 - CONCLUSION: No evidence of DVT. Víctor Rosas MD CT Angiography 03/21/17 0000 Signed Impressions: Service Date/Time: March 00:33 - CONCLUSION: No evidence of pulmonary embolism is identified. Mild atelectasis left lung base. Fluid or phlegm within the trachea. Milo Muhammad MD Abdomen Ultrasound 03/20/17 0000 Signed Impressions: Service Date/Time: Monday, March 20, 2017 11:38 - CONCLUSION: 1. Hepatosplenomegaly without focal lesion. 2. Probable sludge within the lumen of the gallbladder. No intrahepatic duct. Cheo Martínez MD Shoulder X-Ray 03/02/17 1404 Signed Impressions: Service Date/Time: Thursday, March 02, 2017 15:18 - CONCLUSION: No evidence of recent bony injury. Deformity of the lateral left clavicle suggests old healed trauma. Cheo Martínez MD Maxillofacial CT 03/02/17 1342 Signed Impressions: Service Date/Time: Thursday, March 02, 2017 14:52 - CONCLUSION: Negative CT of the facial bones. Cheo Martínez MD Chest CT 03/02/17 1342 Signed Impressions: Service Date/Time: Thursday, March 02, 2017 15:04 - CONCLUSION: 1. Abnormal appearance of the lateral left clavicle suggesting a combination of acute and chronic bony injury. Fracture lucencies without bridging callus is seen the region of the coracoid process. 2. The lungs are clear. No evidence of pneumothorax. 3. Moderate size hiatus hernia. Cheo Martínez MD Cervical Spine CT 03/02/17 1342 Signed Impressions: Service Date/Time: Thursday, March 02, 2017 14:52 - CONCLUSION: Negative CT cervical spine. Cheo Martínez MD Objective Remarks GENERAL: 61-year-old chronically ill appearing male, currently critically ill, orotracheally intubated. HEENT: Healing abrasion left side scalp. TIMOTHY. Scleral icterus. Very poor dentition. NECK: Trachea Midline RESP: Coarse breath sounds bilaterally. Few wheezes. CARDIOVASCULAR: Tachycardia, RR. ABDOMEN: Slightly distended but soft, bowel sounds present, tolerating tube feeds. : Johns in place with conrad urine output. mild/moderate scrotal edema. MUSCULOSKELETAL: No obvious deformity. 1+ edema all extremities NEUROLOGICAL: + gag and cough. Opens eyes and weakly following commands with upper and lower extremities. A/P Assessment and Plan Neuro/Psych: Osmotic demyelination syndrome Acute toxic metabolic encephalopathy secondary to hypercarbic respiratory failure Alcohol dependence History of EtOH induced seizure withdrawal Chronic benzodiazepine use Bilateral thalamic CVA Off all sedation oxycodone 5 mg every 4 hours as needed for pain MRI 03/21 - T1/T2 prolonged with sparing of this central appears final fibers. 2 small spots in the posterior central spinal tract consistent with Osmotic demyelination syndrome. ODS most likely from correction of Na, with underlying alcoholism. MRI brain 03/28 revealed subacute bilateral thalamic lacunar infarcts, CPM. CT head 03/05 revealed no acute intracranial findings Continue thiamine Seen by neurology/Dr. Mazariegos. EEG with persistent seizures. continue Keppra 500mg BID Neurology following. Respiratory: Acute hypoxemic hypercapnic respiratory failure PRVC 18/550/1.2 Continue with vent support keep sat >92% Ventilator bundle, s/p trach 16 Bronchodilator therapy every 4 hours and as needed SBT daily as pablo. Pulm toilet, trach care Cardiovascular: Chronic Systolic heart failure Echocardiogram 03/04 revealed EF 35-40%. Mild mR. Left atrium dilated. JANE 33 mmHg TSH within normal limits 0.8 s/p hydrocortisone. Continue midodrine 10 mg 3 times Monitor HR and BP keep MAP>65mmHg Renal/FEN: Acute Kidney Injury- Rhabdomyolysis- resolved ODS-see neuro Hypernatremia Monitor renal function, I/O's, electrolytes replacement per protocol. On D51/2NS@75ml/hr. Will need K replacement today GI: EtOH cirrhosis Hyperammonemia Hiatal hernia Sigmoid diverticulosis History of umbilical hernia repair Hypoalbuminemia Continue tube feeds via PEG tube-(Jevity 1.5 with goal rate 60ml/hr) s/p PEG tube placement 04/15 CT abdomen/pelvis 04/16: Cirrhosis of liver, splenomegaly, anasarca, ascites(mild ) On Xifaxan 550 twice a day/lactulose 30 twice a day. LFT is elevated. US Liver 04/15: Abnormal appearance of the pancreas with a nonspecific hypoechoic area involving the posterior part of the pancreas along the head and body region Fatty infiltration throughout the liver. There is thickening of the gallbladder wall at 6 mm. Suggestive of chronic gallbladder disease.. Small amount of free fluid adjacent to the liver and spleen in the upper abdomen.. Right-sided pleural effusion. 03/20 Ultrasound liver-hepatosplenomegaly. Sludge in gallbladder On IV Protonix Heme: Leukocytosis Macrocytic anemia Monitor CBC. No indications for transfusion of blood proximally postop B12 1452, Folate 15.2. TSH 0.8. ID: Likely aspiration pneumonia Escherichia coli UTI 03/11 - completed therapy Acinetobacter pneumonia Pertinent cultures 04/15 Sputum cx: GNR 04/15 urine cx: GNR 04/15 BC: NGTD 04/12 BC: NGTD 04/08 - blood cultures 2 - no growth 04/08 - sputum - no growth 04/05 - urine -C GLABRATA AND C. ALBICANS 03/29 - blood cultures 2 - NGTD 03/25 - sputum --Acinetobacter. 03/25 - urine - NGTD 03/25 - blood cultures 2 -no growth 03/22 - urine - no growth 03/22 - blood cultures 2 - negative 03/20 - blood cultures 2 - no growth 03/11 - urine - Escherichia coli 03/02 - blood cultures 2 - no growth Followed by Dr. Lisa/ID. s/p Unasyn. Off Flagyl po 03/24 Procalcitonin level: 0.40, C-diff PCR negative 04/10 On Zosyn, s/p Vanco 1 gram x 1 dose yesterday. Endocrine: Hyperglycemia of critical illness History of hypothyroidism SSI with Accu-Cheks every 4 hours to maintain euglycemia MSK: History of old left clavicle fracture PT/OT evaluate and treat Access Peripheral IV. Prophylaxis: GI - Protonix DVT - SCD/heparin subcutaneous Palliative care is following code status changed to full code per daughter's request. Tamanna Sandhu, daughter/ HCP: from [facility] [phone] now confirmed transferred to [facility] in [facility] ) Code status -full code Level 3 Meir Garcia MD April 17, 2017 08:50
[2017-04-17] MEDS: MUPIROCIN 2% OINT 1 APPLIC/GM SYR EACH NARE SCH ×2 (09:00→21:00)
[2017-04-17] MEDS: SODIUM CHLORIDE 0.9% FLUSH 10 ML FLUSH IVF SCH (09:00)
--- NOTE | 2017-04-17 09:41 | HHI.PR ---
Review/Management Diagnosis 1. Encephalopathy. Hepatic/metabolic encephalopathy 2. Alcohol dependence 3. History of ethanol induced seizure withdrawal 4. Chronic benzodiazepine use. 5. 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 6. Seizures 7. Bilateral thalamic infarcts Plan -Neuro checks q. one hourly. - CIWA protocol thiamine, folate and multivitamin. - Ativan 0.25 mg for seizures lasting more than 3 minutes - Increased Keppra dose to 1gm bid - Seizure precautions. - Serial monitoring of electrolytes - Maintenance of electrolyte balance - DVT prophylaxis. Diagnosis/Plan: Subjective Subjective Comments Patient s/p PEG & Trach Running low grade fever No reported seizures On Keppra 1gm bid Active Medications Current Medications Medications (Trade) Dose Ordered Sig/Mae Route Start Time Stop Time Status Last Admin (D50w (Vial) Inj) 25 ml UNSCH PRN IV PUSH 03/02/17 16:30 03/15/17 15:58 (Heparin Inj) 5,000 units Q8H SQ 03/09/17 14:00 Hold 04/14/17 22:41 (Lactulose Liq) 30 ml BID PO 03/12/17 21:00 04/17/17 08:35 (Xifaxan) 550 mg BID PO 03/20/17 09:00 04/17/17 08:36 (NS Flush) 2 ml UNSCH PRN IV FLUSH 03/20/17 07:30 (NS Flush) 2 ml BID IV FLUSH 03/20/17 09:00 04/17/17 08:34 (Protonix Inj) 40 mg DAILY IV 03/20/17 09:00 04/17/17 08:35 (Tears Naturale Opth Soln) 1 drop TID EACH EYE 03/20/17 09:00 04/17/17 08:36 (Zofran Inj) 4 mg Q6H PRN IV 03/20/17 07:30 04/05/17 01:12 (Senokot) 17.2 mg Q12H PRN PO 03/20/17 07:30 (Bactroban Nasal 2% Oint) Taper BID EACH NARE 03/20/17 09:00 03/16/18 08:59 04/16/17 08:50 (Lactinex) 1 tab TID PO 03/24/17 18:00 04/17/17 08:36 (NS Flush) DAILY IVF 03/25/17 10:15 04/16/17 08:50 (NS Flush) UNSCH PRN IVF 03/25/17 10:15 (Peridex 0.12% Liq) 15 ml BID@08,20 MT 03/25/17 20:00 04/16/17 21:12 Insulin Human Regular 1 1 Q4HR SQ 03/26/17 08:00 04/17/17 04:30 Potassium Chloride 100 ml @ 50 mls/hr Q2H PRN IV 03/27/17 12:30 04/09/17 17:13 (KCl 20 Meq Premix Inj) 100 ml @ 50 mls/hr Q2H PRN IV 03/27/17 12:30 04/17/17 07:35 Potassium Bicarb/ Potassium Chloride 50 meq 50 meq UNSCH PRN PO 03/27/17 12:30 04/10/17 08:37 Potassium Chloride 100 ml @ 25 mls/hr UNSCH PRN IV 03/27/17 12:30 04/13/17 08:46 Potassium Chloride 100 ml @ 50 mls/hr Q2H PRN IV 03/27/17 12:30 04/11/17 22:30 (Magnesium Sulfate Inj/NS Inj) 100 ml @ 50 mls/hr UNSCH PRN IV 03/27/17 12:30 Magnesium Oxide 800 mg 800 mg UNSCH PRN PO 03/27/17 12:30 (Magnesium Sulfate Inj/NS Inj) 100 ml @ 50 mls/hr UNSCH PRN IV 03/27/17 12:30 Potassium Phosphate 2000 mg 2,000 mg Q4H PRN PO 03/27/17 12:30 04/07/17 11:41 (Sodium Phosphate Inj/NS 250 ml Inj) 250 ml @ 42 mls/hr UNSCH PRN IV 03/27/17 12:30 04/08/17 01:59 (K-Phos) 2,000 mg UNSCH PRN PO/TUBE 03/27/17 12:30 04/10/17 08:38 (Roxicodone) 5 mg Q6H PRN OG-TUBE 03/31/17 21:30 04/11/17 15:28 (Proamatine) 10 mg Q8HR PO 04/01/17 22:00 04/17/17 04:55 (Tylenol) 500 mg Q6H PRN PO 04/01/17 23:15 04/17/17 00:24 (Colace Liq) 100 mg Q12HR PO 04/03/17 21:00 Hold 04/13/17 11:42 (Mycostatin Powder) 1 applic Q12HR TOPICAL 04/03/17 21:00 04/17/17 08:36 (Vitamin B1) 100 mg DAILY PO 04/05/17 09:00 04/17/17 08:36 (Ativan Inj) 1 mg Q2H PRN IV PUSH 04/13/17 11:00 04/14/17 12:04 Magnesium Oxide 800 mg 800 mg UNSCH PRN PO 04/14/17 18:00 Magnesium Sulfate 4 gm/Sodium Chloride 100 ml @ 50 mls/hr UNSCH PRN IV 04/14/17 18:00 Magnesium Sulfate 2 gm/Sodium Chloride 100 ml @ 50 mls/hr UNSCH PRN IV 04/14/17 18:00 Potassium Chloride 100 ml @ 50 mls/hr Q2H PRN IV 04/14/17 18:00 Potassium Chloride 100 ml @ 50 mls/hr Q2H PRN IV 04/14/17 18:00 04/14/17 16:00 Potassium Chloride 100 ml @ 50 mls/hr Q2H PRN IV 04/14/17 18:00 (KCl 40 Meq Premix Inj) 100 ml @ 25 mls/hr UNSCH PRN IV 04/14/17 18:00 (K-Phos) 2,000 mg Q4H PRN PO 04/14/17 18:00 Potassium Phosphate 2000 mg 2,000 mg UNSCH PRN PO/TUBE 04/14/17 18:00 Sodium Phosphate 30 mmol/Sodium Chloride 250 ml @ 42 mls/hr UNSCH PRN IV 04/14/17 18:00 Levetriacetam 100 ml @ 400 mls/hr BID IV 04/15/17 21:00 04/17/17 08:34 Dextrose/Sodium Chloride 1,000 ml @ 75 mls/hr [id number] IV 04/16/17 09:00 04/16/17 10:45 (Zosyn 4.5 Gm Premix) 100 ml @ 200 mls/hr Q6H IV 04/16/17 10:00 04/17/17 04:27 Allergies Allergies Coded Allergies PEANUTS (Unverified Allergy, Severe, 03/02/17) *MDRO Multi-Drug Resistant Organism (Verified Adverse Reaction, Unknown, ) Exam I&O / VS 04/16/17 04/16/17 04/17/17 15:00 23:00 07:00 Intake Total 521 ml 1086 ml 860 ml Output Total 500 ml 1100 ml 600 ml Balance 21 ml -14 ml 260 ml Intake Oral 0 ml 0 ml 0 ml IV Total 521 ml 885 ml 530 ml Tube Feeding 0 ml 201 ml 330 ml Output Urine Total 350 ml 500 ml 200 ml Stool Total 150 ml 600 ml 400 ml Vital Signs Date Time Temp Pulse Resp B/P Pulse Ox O2 Delivery O2 Flow Rate FiO2 04/17/17 09:30 97 35 04/17/17 06:00 101 04/17/17 05:15 95 35 04/17/17 04:00 35 04/17/17 04:00 101 04/17/17 04:00 98.8 102 21 92/61 96 04/17/17 02:00 104 04/17/17 01:24 23 04/17/17 00:59 95 35 04/17/17 00:00 100.3 109 22 95/59 95 04/17/17 00:00 109 04/17/17 00:00 35 04/16/17 22:26 94 35 04/16/17 22:00 107 04/16/17 20:25 95 35 04/16/17 20:00 97 04/16/17 20:00 35 04/16/17 20:00 100.1 101 20 89/60 95 04/16/17 18:00 97 04/16/17 18:00 100.0 97 19 98/60 97 04/16/17 16:00 91 04/16/17 16:00 35 04/16/17 15:51 97 35 04/16/17 14:00 84 04/16/17 13:15 100 100 04/16/17 12:00 35 04/16/17 12:00 90 04/16/17 12:00 99.9 91 18 89/58 96 04/16/17 11:44 97 35 04/16/17 11:20 100 100 04/16/17 10:00 91 Exam Comments GENERAL: The patient is lethargic, HEENT: Normocephalic NECK: Trach in place RESPIRATORY: Scattered wheezes CARDIOVASCULAR: sinus tachycardia ABDOMEN: Distended, nontender. No rigidity. PEG in place. MUSCULOSKELETAL: Peripheral pulses are present. No edema. NEUROLOGIC: The patient is lethargic, responds to verbal stimuli intermittently by opening eyes, squeezes fingers, moves extremities spontaneously, reflexes 1+ bilateral symmetrical. Plantars are bilateral, mute. Objective Radiology Results Last 72 hours Impressions Chest X-Ray 04/16/17 0000 Signed Impressions: Service Date/Time: Sunday, April 16, 2017 13:49 - CONCLUSION: 1. Bilateral pulmonary opacities. 2. Adequate placement of tracheostomy tube. Logan Morgan MD Abdomen/Pelvis CT 04/16/17 0000 Signed Impressions: Service Date/Time: Sunday, April 16, 2017 11:26 - CONCLUSION: 1. Cirrhosis and splenomegaly. 2. Ascites 3. Anasarca 4. No pancreas mass identified Yinka Harman MD Liver Ultrasound 04/15/17 0000 Signed Impressions: Service Date/Time: Saturday, April 15, 2017 09:24 - CONCLUSION: 1. Abnormal appearance of the pancreas with a nonspecific hypoechoic area involving the posterior part of the pancreas along the head and body region. Recommend CT scan of the abdomen with oral and IV contrast further evaluation. 2. Fatty infiltration throughout the liver. 3. There is thickening of the gallbladder wall at 6 mm. This is suggestive of chronic gallbladder disease. 4. Small amount of free fluid adjacent to the liver and spleen in the upper abdomen.. 5. Right-sided pleural effusion. Víctor Rosas MD Micro and Labs Laboratory Tests Test 04/17/17 05:39 White Blood Count 17.3 Red Blood Count 2.56 Hemoglobin 8.7 Hematocrit 26.2 Mean Corpuscular Volume 102.0 Mean Corpuscular Hemoglobin 33.8 Mean Corpuscular Hemoglobin 33.1 Concent Red Cell Distribution Width 16.3 Platelet Count 176 Mean Platelet Volume 9.0 Neutrophils (%) (Auto) 80.3 Lymphocytes (%) (Auto) 10.5 Monocytes (%) (Auto) 6.4 Eosinophils (%) (Auto) 2.0 Basophils (%) (Auto) 0.8 Neutrophils # (Auto) 13.9 Lymphocytes # (Auto) 1.8 Monocytes # (Auto) 1.1 Eosinophils # (Auto) 0.3 Basophils # (Auto) 0.1 CBC Comment DIFF FINAL Differential Comment Sodium Level 142 Potassium Level 2.9 Chloride Level 110 Carbon Dioxide Level 20.4 Anion Gap 12 Blood Urea Nitrogen 15 Creatinine 0.63 Estimat Glomerular Filtration 130 Rate Random Glucose 137 Calcium Level 7.9 Phosphorus Level 2.7 Magnesium Level 1.8 Total Bilirubin 1.5 Aspartate Amino Transf 159 (AST/SGOT) Alanine Aminotransferase 88 (ALT/SGPT) Alkaline Phosphatase 526 Total Protein 5.5 Albumin 1.6 Date/Time Procedure Status Source Growth 04/15/17 10:47 Aerobic Blood Culture - Preliminary Resulted Blood Peripheral NO GROWTH IN 1 DAY 04/15/17 10:47 Anaerobic Blood Culture - Preliminary Resulted Blood Peripheral NO GROWTH IN 1 DAY 04/15/17 09:25 Urine Culture - Preliminary Resulted Urine Catheterized Urine Klebsiella Pneumoniae 04/15/17 09:25 Gram Stain - Final Resulted Sputum Endotracheal 04/15/17 09:25 Sputum Culture - Preliminary Resulted Pseudomonas Aeruginosa Susy Mazariegos MD April 17, 2017 09:41
--- NOTE | 2017-04-17 14:24 | HHI.GIFU ---
Subjective Remarks Resting in bed. No distress. Tolerating TF. + BM Objective Vitals I&O Vital Signs Date Time Temp Pulse Resp B/P Pulse Ox O2 Delivery O2 Flow Rate FiO2 04/17/17 13:00 106 20 102/66 96 04/17/17 12:00 99.4 106 22 107/66 96 04/17/17 12:00 35 04/17/17 12:00 101 04/17/17 11:41 96 35 04/17/17 10:00 101 04/17/17 10:00 103 23 101/67 97 04/17/17 09:30 97 35 04/17/17 09:00 101 22 100/67 96 04/17/17 08:00 98.4 100 22 102/64 97 04/17/17 08:00 35 04/17/17 08:00 101 04/17/17 06:00 101 04/17/17 05:15 95 35 04/17/17 04:00 35 04/17/17 04:00 101 04/17/17 04:00 98.8 102 21 92/61 96 04/17/17 02:00 104 04/17/17 01:24 23 04/17/17 00:59 95 35 04/17/17 00:00 100.3 109 22 95/59 95 04/17/17 00:00 109 04/17/17 00:00 35 04/16/17 22:26 94 35 04/16/17 22:00 107 04/16/17 20:25 95 35 04/16/17 20:00 97 04/16/17 20:00 35 04/16/17 20:00 100.1 101 20 89/60 95 04/16/17 18:00 97 04/16/17 18:00 100.0 97 19 98/60 97 04/16/17 16:00 91 04/16/17 16:00 35 04/16/17 15:51 97 35 I/O 04/16/17 04/16/17 04/16/17 04/17/17 04/17/17 04/17/17 07:00 15:00 23:00 07:00 15:00 23:00 Intake Total 139 ml 521 ml 1086 ml 860 ml Output Total 425 ml 500 ml 1100 ml 600 ml Balance -286 ml 21 ml -14 ml 260 ml Intake Oral 0 ml 0 ml 0 ml 0 ml IV Total 139 ml 521 ml 885 ml 530 ml Tube Feeding 0 ml 0 ml 201 ml 330 ml Output Urine Total 225 ml 350 ml 500 ml 200 ml Stool Total 200 ml 150 ml 600 ml 400 ml Laboratory Laboratory Tests Test 04/17/17 05:39 White Blood Count 17.3 Red Blood Count 2.56 Hemoglobin 8.7 Hematocrit 26.2 Mean Corpuscular Volume 102.0 Mean Corpuscular Hemoglobin 33.8 Mean Corpuscular Hemoglobin 33.1 Concent Red Cell Distribution Width 16.3 Platelet Count 176 Mean Platelet Volume 9.0 Neutrophils (%) (Auto) 80.3 Lymphocytes (%) (Auto) 10.5 Monocytes (%) (Auto) 6.4 Eosinophils (%) (Auto) 2.0 Basophils (%) (Auto) 0.8 Neutrophils # (Auto) 13.9 Lymphocytes # (Auto) 1.8 Monocytes # (Auto) 1.1 Eosinophils # (Auto) 0.3 Basophils # (Auto) 0.1 CBC Comment DIFF FINAL Differential Comment Sodium Level 142 Potassium Level 2.9 Chloride Level 110 Carbon Dioxide Level 20.4 Anion Gap 12 Blood Urea Nitrogen 15 Creatinine 0.63 Estimat Glomerular Filtration 130 Rate Random Glucose 137 Calcium Level 7.9 Phosphorus Level 2.7 Magnesium Level 1.8 Total Bilirubin 1.5 Aspartate Amino Transf 159 (AST/SGOT) Alanine Aminotransferase 88 (ALT/SGPT) Alkaline Phosphatase 526 Total Protein 5.5 Albumin 1.6 Date/Time Procedure Status Source Growth 04/15/17 10:47 Aerobic Blood Culture - Preliminary Resulted Blood Peripheral NO GROWTH IN 2 DAYS 04/15/17 10:47 Anaerobic Blood Culture - Preliminary Resulted Blood Peripheral NO GROWTH IN 2 DAYS 04/15/17 09:25 Urine Culture - Preliminary Resulted Urine Catheterized Urine Klebsiella Pneumoniae 04/15/17 09:25 Gram Stain - Final Resulted Sputum Endotracheal 04/15/17 09:25 Sputum Culture - Preliminary Resulted Pseudomonas Aeruginosa 04/12/17 17:07 Aerobic Blood Culture - Final Complete Blood Peripheral NO GROWTH IN 5 DAYS 04/12/17 17:07 Anaerobic Blood Culture - Final Complete Blood Peripheral NO GROWTH IN 5 DAYS Imaging Last Impressions Chest X-Ray 04/16/17 0000 Signed Impressions: Service Date/Time: Sunday, April 16, 2017 13:49 - CONCLUSION: 1. Bilateral pulmonary opacities. 2. Adequate placement of tracheostomy tube. Logan Morgan MD Abdomen/Pelvis CT 04/16/17 0000 Signed Impressions: Service Date/Time: Sunday, April 16, 2017 11:26 - CONCLUSION: 1. Cirrhosis and splenomegaly. 2. Ascites 3. Anasarca 4. No pancreas mass identified Yinka Harman MD Liver Ultrasound 04/15/17 0000 Signed Impressions: Service Date/Time: Saturday, April 15, 2017 09:24 - CONCLUSION: 1. Abnormal appearance of the pancreas with a nonspecific hypoechoic area involving the posterior part of the pancreas along the head and body region. Recommend CT scan of the abdomen with oral and IV contrast further evaluation. 2. Fatty infiltration throughout the liver. 3. There is thickening of the gallbladder wall at 6 mm. This is suggestive of chronic gallbladder disease. 4. Small amount of free fluid adjacent to the liver and spleen in the upper abdomen.. 5. Right-sided pleural effusion. Víctor Rosas MD Abdomen X-Ray 04/13/17 0000 Signed Impressions: Service Date/Time: Thursday, April 13, 2017 10:36 - CONCLUSION: Dobbhoff tip in distal stomach. No evidence of obstruction. Logan Morgan MD Head CT 04/12/17 0000 Signed Impressions: Service Date/Time: Wednesday, April 12, 2017 21:30 - CONCLUSION: Pontine encephalomalacia. Left mastoiditis. Casper Alva MD Head Magnetic Resonance Angiography 03/28/17 0000 Signed Impressions: Service Date/Time: March 17:22 - CONCLUSION: Unremarkable examination. KShiv Castillo MD Brain MRI 03/28/17 0000 Signed Impressions: Service Date/Time: March 17:22 - CONCLUSION: 1. 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 Small subacute ischemic bilateral thalamic infarcts. 2. There has been no significant change when compared to the prior exam. Yinka Harman MD Lower Extremity Ultrasound 03/25/17 0000 Signed Impressions: Service Date/Time: Saturday, March 25, 2017 22:17 - CONCLUSION: No evidence of DVT. Víctor Rosas MD CT Angiography 03/21/17 0000 Signed Impressions: Service Date/Time: March 00:33 - CONCLUSION: No evidence of pulmonary embolism is identified. Mild atelectasis left lung base. Fluid or phlegm within the trachea. Milo Muhammad MD Abdomen Ultrasound 03/20/17 0000 Signed Impressions: Service Date/Time: Monday, March 20, 2017 11:38 - CONCLUSION: 1. Hepatosplenomegaly without focal lesion. 2. Probable sludge within the lumen of the gallbladder. No intrahepatic duct. Cheo Martínez MD Shoulder X-Ray 03/02/17 1404 Signed Impressions: Service Date/Time: Thursday, March 02, 2017 15:18 - CONCLUSION: No evidence of recent bony injury. Deformity of the lateral left clavicle suggests old healed trauma. Cheo Martínez MD Maxillofacial CT 03/02/17 1342 Signed Impressions: Service Date/Time: Thursday, March 02, 2017 14:52 - CONCLUSION: Negative CT of the facial bones. Cheo Martínez MD Chest CT 03/02/17 1342 Signed Impressions: Service Date/Time: Thursday, March 02, 2017 15:04 - CONCLUSION: 1. Abnormal appearance of the lateral left clavicle suggesting a combination of acute and chronic bony injury. Fracture lucencies without bridging callus is seen the region of the coracoid process. 2. The lungs are clear. No evidence of pneumothorax. 3. Moderate size hiatus hernia. Cheo Martínez MD Cervical Spine CT 03/02/17 1342 Signed Impressions: Service Date/Time: Thursday, March 02, 2017 14:52 - CONCLUSION: Negative CT cervical spine. Cheo Martínez MD Physical Exam HEENT: Normocephalic; atraumatic; CHEST: Coarse sounds, on vent to trach CARDIAC: RRR ABDOMEN: Soft, mildly distended, nontender; hepatosplenomegaly; bowel sounds are present in all four quadrants. Peg site without redness, swelling, drainage EXTREMITIES: No clubbing, cyanosis, BLE 1+ pitting edema, general edema, scrotal edema SKIN: Normal; no rash; no jaundice. 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 Pt critically ill in intensive medical unit, requiring prolonged ventilation. GI consulted for PEG. Hot Sealing Machine Operator recommends Jevity 1.5 is at goal rate of 60 ml/hr S/P EGD with PEG tube placement (04/15)---> 1. The upper, middle, and distal third of the esophagus were carefully inspected and no abnormalities were noted. The z- line was well seen at the GEJ. The endoscope was pushed into the fundus which was normal including a retroflexed view. The antrum, first and second part of the duodenum were unremarkable. 2. No abnormalities. Site without redness or swelling. Tolerating TF. - Elevated LFTs/Liver cirrhosis. Pt with hx of alcohol abuse. MELD 25. T. Bili 1.5, AST 159, 88, Alk Phosph 526- likely combination of alcohol abuse on underlying cirrhosis, possible some congestive component. - Coagulopathy. improving PT 12.6, INR 1.1. - Anemia. HH 8.7/26.21. No active bleeding. - Resp. Failure/PNA. Vent per CCM. trach. 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 thalamic CVA. S/P Neuro eval. Lactulose, Xifaxan. - MAXIME with electrolyte abnormalities. Per renal/CCM - Leukocytosis with UTI (S/P Tx), PNA. - CHF, Hx hypothyroidism per CCM PLAN: - Jevity 1.5 is at goal rate of 60 ml/hr give after 6 hours - Monitor labs - GI will sign off, please reconsult as needed - This pt seen by myself and Dr Alejandra and this note is written on his behalf Maggie Mederos April 17, 2017 14:24
--- NOTE | 2017-04-17 15:05 | HHI.IDPN ---
Subjective Subjective Remarks Notes reviewed Low grade temps overnight Better this morning S/P trach yesterday Awake and following some commands UC with Klebsiella R to Zosyn Sputum with PSAE Last CXR stable infiltrates Antibiotics Zosyn Vancomycin Lines PIV Past Medical History ETOHism Allergies: Coded Allergies: PEANUTS (Unverified Allergy, Severe, 03/02/17) *MDRO Multi-Drug Resistant Organism (Verified Adverse Reaction, Unknown, ) MRSA PCR screen POSITIVE - 03/02/17 MDR Acinetobacter (sputum) - 03/25/17 Objective . Vital Signs Date Time Temp Pulse Resp B/P Pulse Ox O2 Delivery O2 Flow Rate FiO2 04/17/17 14:52 96 35 04/17/17 14:00 101 04/17/17 13:00 106 20 102/66 96 04/17/17 12:00 99.4 106 22 107/66 96 04/17/17 12:00 35 04/17/17 12:00 101 04/17/17 11:41 96 35 04/17/17 10:00 101 04/17/17 10:00 103 23 101/67 97 04/17/17 09:30 97 35 04/17/17 09:00 101 22 100/67 96 04/17/17 08:00 98.4 100 22 102/64 97 04/17/17 08:00 35 04/17/17 08:00 101 04/17/17 06:00 101 04/17/17 05:15 95 35 04/17/17 04:00 35 04/17/17 04:00 101 04/17/17 04:00 98.8 102 21 92/61 96 04/17/17 02:00 104 04/17/17 01:24 23 04/17/17 00:59 95 35 04/17/17 00:00 100.3 109 22 95/59 95 04/17/17 00:00 109 04/17/17 00:00 35 04/16/17 22:26 94 35 04/16/17 22:00 107 04/16/17 20:25 95 35 04/16/17 20:00 97 04/16/17 20:00 35 04/16/17 20:00 100.1 101 20 89/60 95 04/16/17 18:00 97 04/16/17 18:00 100.0 97 19 98/60 97 04/16/17 16:00 91 04/16/17 16:00 35 04/16/17 15:51 97 35 04/16/17 04/16/17 04/17/17 15:00 23:00 07:00 Intake Total 521 ml 1086 ml 860 ml Output Total 500 ml 1100 ml 600 ml Balance 21 ml -14 ml 260 ml Intake Oral 0 ml 0 ml 0 ml IV Total 521 ml 885 ml 530 ml Tube Feeding 0 ml 201 ml 330 ml Output Urine Total 350 ml 500 ml 200 ml Stool Total 150 ml 600 ml 400 ml . Laboratory Tests Test 04/16/17 04/17/17 04:49 05:39 White Blood Count 16.2 TH/MM3 17.3 TH/MM3 Red Blood Count 2.80 MIL/MM3 2.56 MIL/MM3 Hemoglobin 9.7 GM/DL 8.7 GM/DL Hematocrit 29.0 % 26.2 % Mean Corpuscular Volume 103.6 FL 102.0 FL Mean Corpuscular Hemoglobin 34.5 PG 33.8 PG Mean Corpuscular Hemoglobin 33.4 % 33.1 % Concent Red Cell Distribution Width 16.3 % 16.3 % Platelet Count 162 TH/MM3 176 TH/MM3 Mean Platelet Volume 9.9 FL 9.0 FL Neutrophils (%) (Auto) 80.3 % 80.3 % Lymphocytes (%) (Auto) 10.8 % 10.5 % Monocytes (%) (Auto) 5.7 % 6.4 % Eosinophils (%) (Auto) 2.2 % 2.0 % Basophils (%) (Auto) 1.0 % 0.8 % Neutrophils # (Auto) 13.0 TH/MM3 13.9 TH/MM3 Lymphocytes # (Auto) 1.7 TH/MM3 1.8 TH/MM3 Monocytes # (Auto) 0.9 TH/MM3 1.1 TH/MM3 Eosinophils # (Auto) 0.4 TH/MM3 0.3 TH/MM3 Basophils # (Auto) 0.2 TH/MM3 0.1 TH/MM3 CBC Comment DIFF FINAL DIFF FINAL Differential Comment Laboratory Tests Test 04/16/17 04/17/17 04:49 05:39 Sodium Level 145 MEQ/L 142 MEQ/L Potassium Level 4.2 MEQ/L 2.9 MEQ/L Chloride Level 114 MEQ/L 110 MEQ/L Carbon Dioxide Level 22.0 MEQ/L 20.4 MEQ/L Anion Gap 9 MEQ/L 12 MEQ/L Blood Urea Nitrogen 17 MG/DL 15 MG/DL Creatinine 0.37 MG/DL 0.63 MG/DL Estimat Glomerular Filtration 241 ML/MIN 130 ML/MIN Rate Random Glucose 63 MG/DL 137 MG/DL Calcium Level 8.1 MG/DL 7.9 MG/DL Total Bilirubin 2.1 MG/DL 1.5 MG/DL Aspartate Amino Transf 149 U/L 159 U/L (AST/SGOT) Alanine Aminotransferase 81 U/L 88 U/L (ALT/SGPT) Alkaline Phosphatase 403 U/L 526 U/L Total Protein 5.6 GM/DL 5.5 GM/DL Albumin 1.7 GM/DL 1.6 GM/DL Lipase 211 U/L Phosphorus Level 2.7 MG/DL Magnesium Level 1.8 MG/DL Microbiology Date/Time Procedure Status Source Growth 04/15/17 09:25 Gram Stain - Final Resulted Sputum Endotracheal 04/15/17 09:25 Sputum Culture - Preliminary Resulted Pseudomonas Aeruginosa 04/15/17 09:25 Urine Culture - Preliminary Resulted Urine Catheterized Urine Klebsiella Pneumoniae 04/15/17 10:40 Aerobic Blood Culture - Preliminary Resulted Blood Peripheral NO GROWTH IN 2 DAYS 04/15/17 10:40 Anaerobic Blood Culture - Preliminary Resulted Blood Peripheral NO GROWTH IN 2 DAYS 04/15/17 10:47 Aerobic Blood Culture - Preliminary Resulted Blood Peripheral NO GROWTH IN 2 DAYS 04/15/17 10:47 Anaerobic Blood Culture - Preliminary Resulted Blood Peripheral NO GROWTH IN 2 DAYS Imaging Liver Ultrasound 04/15/17 0000 Signed Impressions: Service Date/Time: Saturday, April 15, 2017 09:24 - CONCLUSION: 1. Abnormal appearance of the pancreas with a nonspecific hypoechoic area involving the posterior part of the pancreas along the head and body region. Recommend CT scan of the abdomen with oral and IV contrast further evaluation. 2. Fatty infiltration throughout the liver. 3. There is thickening of the gallbladder wall at 6 mm. This is suggestive of chronic gallbladder disease. 4. Small amount of free fluid adjacent to the liver and spleen in the upper abdomen.. 5. Right-sided pleural effusion. Víctor Rosas MD Chest X-Ray 04/13/17 0600 Signed Impressions: Service Date/Time: Thursday, April 13, 2017 03:50 - CONCLUSION: Stable bilateral scattered pulmonary infiltrates. Víctor Rosas MD Abdomen X-Ray 04/13/17 0000 Signed Impressions: Service Date/Time: Thursday, April 13, 2017 10:36 - CONCLUSION: Dobbhoff tip in distal stomach. No evidence of obstruction. Logan Morgan MD Head CT 04/12/17 0000 Signed Impressions: Service Date/Time: Wednesday, April 12, 2017 21:30 - CONCLUSION: Pontine encephalomalacia. Left mastoiditis. Casper Alva MD Head Magnetic Resonance Angiography 03/28/17 0000 Signed Impressions: Service Date/Time: March 17:22 - CONCLUSION: Unremarkable examination. Bety Castillo MD Brain MRI 03/28/17 0000 Signed Impressions: Service Date/Time: March 17:22 - CONCLUSION: 1. 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 Small subacute ischemic bilateral thalamic infarcts. 2. There has been no significant change when compared to the prior exam. Yinka Harman MD Lower Extremity Ultrasound 03/25/17 0000 Signed Impressions: Service Date/Time: Saturday, March 25, 2017 22:17 - CONCLUSION: No evidence of DVT. Víctor Rosas MD CT Angiography 03/21/17 0000 Signed Impressions: Service Date/Time: March 00:33 - CONCLUSION: No evidence of pulmonary embolism is identified. Mild atelectasis left lung base. Fluid or phlegm within the trachea. Milo Muhammad MD Abdomen Ultrasound 03/20/17 0000 Signed Impressions: Service Date/Time: Monday, March 20, 2017 11:38 - CONCLUSION: 1. Hepatosplenomegaly without focal lesion. 2. Probable sludge within the lumen of the gallbladder. No intrahepatic duct. Cheo Martínez MD Shoulder X-Ray 03/02/17 1404 Signed Impressions: Service Date/Time: Thursday, March 02, 2017 15:18 - CONCLUSION: No evidence of recent bony injury. Deformity of the lateral left clavicle suggests old healed trauma. Cheo Martínez MD Maxillofacial CT 03/02/17 1342 Signed Impressions: Service Date/Time: Thursday, March 02, 2017 14:52 - CONCLUSION: Negative CT of the facial bones. Cheo Martínez MD Chest CT 03/02/17 1342 Signed Impressions: Service Date/Time: Thursday, March 02, 2017 15:04 - CONCLUSION: 1. Abnormal appearance of the lateral left clavicle suggesting a combination of acute and chronic bony injury. Fracture lucencies without bridging callus is seen the region of the coracoid process. 2. The lungs are clear. No evidence of pneumothorax. 3. Moderate size hiatus hernia. Cheo Martínez MD Cervical Spine CT 03/02/17 1342 Signed Impressions: Service Date/Time: Thursday, March 02, 2017 14:52 - CONCLUSION: Negative CT cervical spine. Cheo Martínez MD Abdomen/Pelvis CT 03/02/17 1342 Signed Impressions: Service Date/Time: Thursday, March 02, 2017 15:04 - CONCLUSION: Moderate size hiatus hernia. Scattered small sigmoid diverticula. Otherwise negative exam. Cheo Martínez MD Chest X-Ray 04/08/17 0600 Signed Impressions: Service Date/Time: Saturday, April 08, 2017 05:10 - CONCLUSION: 1. Endotracheal tube and weighted feeding tube. 2. Bilateral pulmonary infiltrates. Some improvement from the prior study. Cheo Barrera Jr., MD Chest X-Ray 03/27/17 0600 Signed Impressions: Service Date/Time: Monday, March 27, 2017 02:33 - CONCLUSION: No significant interval change. Víctor Rosas MD Chest X-Ray 03/26/17 0600 Signed Impressions: Service Date/Time: Sunday, March 26, 2017 05:35 - CONCLUSION: Improving bilateral pulmonary infiltrates Víctor Rosas MD Chest X-Ray 03/25/17 1004 Signed Impressions: Service Date/Time: Saturday, March 25, 2017 10:03 - CONCLUSION: 1. Worsening bibasilar consolidation. 2. Endotracheal tube with tip at the thoracic inlet and should be advanced at least 3-4 cm. 3. Adequate placement of left jugular central line without pneumothorax. Logan Morgan MD Chest X-Ray 03/26/17 0600 Signed Impressions: Service Date/Time: Sunday, March 26, 2017 05:35 - CONCLUSION: Improving bilateral pulmonary infiltrates Víctor Rosas MD Lower Extremity Ultrasound 03/25/17 0000 Signed Impressions: Service Date/Time: Saturday, March 25, 2017 22:17 - CONCLUSION: No evidence of DVT. Víctor Rosas MD CT Angiography 03/21/17 0000 Signed Impressions: Service Date/Time: March 00:33 - CONCLUSION: No evidence of pulmonary embolism is identified. Mild atelectasis left lung base. Fluid or phlegm within the trachea. Milo Muhammad MD Brain MRI 03/20/17 0000 Signed Impressions: Service Date/Time: Monday, March 20, 2017 16:11 - CONCLUSION: Abnormal appearance to the ruthy with some extension into the cortical spinal tracts of the posterior thalamus was bilaterally. 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 Cheo Martínez MD Abdomen X-Ray 03/20/17 0000 Signed Impressions: Service Date/Time: Monday, March 20, 2017 18:12 - CONCLUSION: Tip of the Dobbhoff tube projecting towards the pylorus. Cheo Barrera Jr., MD Abdomen Ultrasound 03/20/17 0000 Signed Impressions: Service Date/Time: Monday, March 20, 2017 11:38 - CONCLUSION: 1. Hepatosplenomegaly without focal lesion. 2. Probable sludge within the lumen of the gallbladder. No intrahepatic duct. Cheo Martínez MD Shoulder X-Ray 03/02/17 1404 Signed Impressions: Service Date/Time: Thursday, March 02, 2017 15:18 - CONCLUSION: No evidence of recent bony injury. Deformity of the lateral left clavicle suggests old healed trauma. Cheo Martínez MD Maxillofacial CT 03/02/17 1342 Signed Impressions: Service Date/Time: Thursday, March 02, 2017 14:52 - CONCLUSION: Negative CT of the facial bones. Cheo Martínez MD Head CT 03/02/17 1342 Signed Impressions: Service Date/Time: Thursday, March 02, 2017 14:52 - CONCLUSION: 1. Prominent scalp swelling left frontal and parietal region. No skull fracture seen. 2. Intracranial contents are intact without acute finding. Cheo Martínez MD Chest CT 03/02/17 1342 Signed Impressions: Service Date/Time: Thursday, March 02, 2017 15:04 - CONCLUSION: 1. Abnormal appearance of the lateral left clavicle suggesting a combination of acute and chronic bony injury. Fracture lucencies without bridging callus is seen the region of the coracoid process. 2. The lungs are clear. No evidence of pneumothorax. 3. Moderate size hiatus hernia. Cheo Martínez MD Cervical Spine CT 03/02/17 1342 Signed Impressions: Service Date/Time: Thursday, March 02, 2017 14:52 - CONCLUSION: Negative CT cervical spine. Cheo Martínez MD Abdomen/Pelvis CT 03/02/17 1342 Signed Impressions: Service Date/Time: Thursday, March 02, 2017 15:04 - CONCLUSION: Moderate size hiatus hernia. Scattered small sigmoid diverticula. Otherwise negative exam. Cheo Martínez MD Chest X-Ray 03/25/17 1004 Signed Impressions: Service Date/Time: Saturday, March 25, 2017 10:03 - CONCLUSION: 1. Worsening bibasilar consolidation. 2. Endotracheal tube with tip at the thoracic inlet and should be advanced at least 3-4 cm. 3. Adequate placement of left jugular central line without pneumothorax. Logan Morgan MD Chest X-Ray 03/23/17 0000 Signed Impressions: Service Date/Time: Thursday, March 23, 2017 14:27 - CONCLUSION: 1. Feeding tube in place with what appears to be a loop in the hypopharynx. 2. Bibasilar areas of consolidation or atelectasis. Casper Vargas MD Physical Exam GENERAL: Awake, focusing, following some commands, on the vent, NAD SKIN: Warm and dry. No generalized rash. HEENT: Pupils equal round and reactive. Poor dentition. A lot of oral secretions NECK: Supple, nontender, no meningeal signs. Previous line site ok. Trach site ok CARDIOVASCULAR: Regular rate and rhythm without murmurs, gallops, or rubs. RESPIRATORY: Coarse rhonchi GASTROINTESTINAL: Abdomen mildly distended, bowel sounds are present and normoactive, no reaction to palpation. PEG site ok MUSCULOSKELETAL: Lower extremities without clubbing, cyanosis. (+) pedal edema. No joint effusion. NEUROLOGICAL: Awake and focusing : Johns cath in place, urine looks better LINE: PIV no evidence of infection Assessment & Plan Remarks IMPRESSION Sepsis syndrome, due to PNA - on vent - has MDR Acinetobacter, S/P RX MDR Acinetobacter PNA - S/P Rx Recurrent fevers, etiology? - low grade now - has UTI - CXR stable infiltrates, only with few WBC on G/S - no line - ?drug fever (anticonvulsants) Kleb UTI ?New VAP, has PSAE Septic shock, BP better, off pressors Known ETOH abuse Encephalopathy - sepsis, ETOH, CPM Respiratory failure, not tolerating CPAP - for trach today Diarrhea, C diff negative Nuvia in UC, repeat UA normal, without Rx Seizures, controlled - likely due to CPM - per records, had previous ETOH withdrawal SZ RECOMMENDATION Follow C/S Follow temps Change Zosyn to cefepime Monitor progress Weaning per CCM ?LTAC Umm Lisa MD April 17, 2017 15:04
[2017-04-17] MEDS: CEFEPIME INJ 2,000 MG in SODIUM CHLORIDE 0.9% INJ 100 ML IV SCH (15:18)
[2017-04-17] MEDS: DEXT 5%-NACL 0.45% 1000 ML INJ 1,000 ML IV SCH (15:19)
--- NOTE | 2017-04-17 15:42 | HHI.HCPN ---
Reason for visit a. To assist with evaluation and management of symptoms including: dyspnea, pain. b. To assist medical decision maker(s) with: better understanding of current medical conditions; weighing benefits/burdens of medical treatment options; making medical treatment decisions. . Subjective/Interval History Patient seen and examined in ICU. No family at bedside. Patient status post PEG tube placement on 04/15/17 and tracheostomy on 04/16/17. He remains intubated on mechanical ventilation via tracheostomy. As not tolerated CPAP trial. He is off sedation, awake, alert intermittently tracking with eyes but not following any commands for me. Has been febrile with MAXIMUM TEMPERATURE 100.3 earlier this morning. Remains tachycardic with heart rate in the low 110s. Laboratory today showing WBC 17.3, Hgb 8.7, platelet count 176. Sodium 142, potassium 2.9, BUN/creatinine 15/0.63. Albumin 1.6. Sputum culture 04/15/17 positive for pseudomonas aeruginosa, urine culture positive for Klebsiella pneumoniae. ID following. Liver ultrasound 04/15/17 showing abnormal appearance of the pancreas with nonspecific hypoechogenic areas. CT scan was recommended. Abdomen/pelvis CT 04/16/17 showing cirrhosis and splenomegaly, ascites, anasarca, no pancreatic mass identified. Chest x- ray 04/16/17 revealing bilateral pulmonary opacities. Patient on Keppra for persistent seizure activity. Neurology following. Case discussed with bedside RN. Patient will likely require LTAC versus long- term facility placement. Likely vent dependent. As per nursing staff, Guillermo Roberts which is daughter's friend, has visited patient over the weekend. He has been very helpful in conveying medical update to patient's daughter who is currently in custody of [facility] agency. Telephone call to Guillermo and shima kingmail. Palliative care to contact patient's daughter to provide medical update. . . Family/friend interactions See interval note. . Advance Directives Living Will: Never completed Health Care Surrogate: Never completed Durable Power of Laser Beam Trim Operator: Never completed Advance Directive Specifics Health Care Surrogate(s): Margot Nolen is, per [place] statues bam care decision proxy. Now in [facility] (#[phone]). Facilitation of conversations with Tamanna can be arranged through booking (#[phone]) in emergency situations to address goals of care.Ask for a [place] on staff as shifts rotate throughout the week. Significant change in goals: Full code. Continue current management. . Objective Vital Signs Date Time Temp Pulse Resp B/P Pulse Ox O2 Delivery O2 Flow Rate FiO2 04/17/17 14:52 96 35 04/17/17 14:00 101 04/17/17 13:00 106 20 102/66 96 04/17/17 12:00 99.4 106 22 107/66 96 04/17/17 12:00 35 04/17/17 12:00 101 04/17/17 11:41 96 35 04/17/17 10:00 101 04/17/17 10:00 103 23 101/67 97 04/17/17 09:30 97 35 04/17/17 09:00 101 22 100/67 96 04/17/17 08:00 98.4 100 22 102/64 97 04/17/17 08:00 35 04/17/17 08:00 101 04/17/17 06:00 101 04/17/17 05:15 95 35 04/17/17 04:00 35 04/17/17 04:00 101 04/17/17 04:00 98.8 102 21 92/61 96 04/17/17 02:00 104 04/17/17 01:24 23 04/17/17 00:59 95 35 04/17/17 00:00 100.3 109 22 95/59 95 04/17/17 00:00 109 04/17/17 00:00 35 04/16/17 22:26 94 35 04/16/17 22:00 107 04/16/17 20:25 95 35 04/16/17 20:00 97 04/16/17 20:00 35 04/16/17 20:00 100.1 101 20 89/60 95 04/16/17 18:00 97 04/16/17 18:00 100.0 97 19 98/60 97 04/16/17 16:00 91 04/16/17 16:00 35 04/16/17 15:51 97 35 Intake & Output 04/17/17 04/17/17 07:00 19:00 Intake Total 1946 ml 1174 ml Output Total 1700 ml 550 ml Balance 246 ml 624 ml Intake Oral 0 ml IV Total 1415 ml 478 ml Tube Feeding 531 ml 496 ml Other 200 ml Output Urine Total 700 ml 350 ml Stool Total 1000 ml 200 ml Physical Exam CONSTITUTIONAL/GENERAL: This is an thin, pale appearing patient, in no apparent distress. On mechanical ventilation via tracheostomy. TUBES/LINES/DRAINS: Tracheostomy, PEG tube, Johns, rectal tube, SCDs. Bilateral heel boots. SKIN: Ecchymosis bilateral UEs and face. Erythema/rash to forehead and bilateral cheeks. Skin temperature appropriate. CARDIOVASCULAR: Tachycardic with heart rate in the low 110s. Edema to upper and lower extremities. RESPIRATORY/CHEST: Symmetric, on mechanical ventilation via trach. Coarse rhonchi anteriorly. GASTROINTESTINAL: Abdomen round, soft. Positive bowel sounds. Ongoing tube feedings via PEG tube. GENITOURINARY: Without palpable bladder distension. Johns catheter in place. Erythema groin area, scrotal edema noted. MUSCULOSKELETAL: Generalized edema noted. No mottling or clubbing. NEUROLOGICAL: Eyes open. Intermittently tracking, not following any commands for me. PSYCHIATRIC: Awake and alert. . Diagnostic Tests Laboratory Laboratory Tests Test 04/15/17 04/15/17 04/16/17 04/17/17 04:40 09:25 04:49 05:39 White Blood Count 13.0 TH/MM3 16.2 TH/MM3 17.3 TH/MM3 (4.0-11.0) (4.0-11.0) (4.0-11.0) Red Blood Count 2.84 MIL/MM3 2.80 MIL/MM3 2.56 MIL/MM3 (4.50-5.90) (4.50-5.90) (4.50-5.90) Hemoglobin 9.5 GM/DL 9.7 GM/DL 8.7 GM/DL (13.0-17.0) (13.0-17.0) (13.0-17.0) Hematocrit 29.3 % 29.0 % 26.2 % (39.0-51.0) (39.0-51.0) (39.0-51.0) Mean Corpuscular Volume 103.2 FL 103.6 FL 102.0 FL (80.0-100.0) (80.0-100.0) (80.0-100.0) Mean Corpuscular Hemoglobin 33.5 PG 34.5 PG 33.8 PG (27.0-34.0) (27.0-34.0) (27.0-34.0) Mean Corpuscular Hemoglobin 32.5 % 33.4 % 33.1 % Concent (32.0-36.0) (32.0-36.0) (32.0-36.0) Red Cell Distribution Width 16.0 % 16.3 % 16.3 % (11.6-17.2) (11.6-17.2) (11.6-17.2) Platelet Count 158 TH/MM3 162 TH/MM3 176 TH/MM3 (150-450) (150-450) (150-450) Mean Platelet Volume 9.2 FL 9.9 FL 9.0 FL (7.0-11.0) (7.0-11.0) (7.0-11.0) Neutrophils (%) (Auto) 78.7 % 80.3 % 80.3 % (16.0-70.0) (16.0-70.0) (16.0-70.0) Lymphocytes (%) (Auto) 11.9 % 10.8 % 10.5 % (9.0-44.0) (9.0-44.0) (9.0-44.0) Monocytes (%) (Auto) 6.8 % (0.0-8.0) 5.7 % (0.0-8.0) 6.4 % (0.0-8.0) Eosinophils (%) (Auto) 2.2 % (0.0-4.0) 2.2 % (0.0-4.0) 2.0 % (0.0-4.0) Basophils (%) (Auto) 0.4 % (0.0-2.0) 1.0 % (0.0-2.0) 0.8 % (0.0-2.0) Neutrophils # (Auto) 10.2 TH/MM3 13.0 TH/MM3 13.9 TH/MM3 (1.8-7.7) (1.8-7.7) (1.8-7.7) Lymphocytes # (Auto) 1.5 TH/MM3 1.7 TH/MM3 1.8 TH/MM3 (1.0-4.8) (1.0-4.8) (1.0-4.8) Monocytes # (Auto) 0.9 TH/MM3 0.9 TH/MM3 1.1 TH/MM3 (0-0.9) (0-0.9) (0-0.9) Eosinophils # (Auto) 0.3 TH/MM3 0.4 TH/MM3 0.3 TH/MM3 (0-0.4) (0-0.4) (0-0.4) Basophils # (Auto) 0.1 TH/MM3 0.2 TH/MM3 0.1 TH/MM3 (0-0.2) (0-0.2) (0-0.2) CBC Comment DIFF FINAL DIFF FINAL DIFF FINAL Differential Comment Prothrombin Time 12.6 SEC (9.8-11.6) Prothromb Time International 1.1 RATIO Ratio Sodium Level 146 MEQ/L 145 MEQ/L 142 MEQ/L (136-145) (136-145) (136-145) Potassium Level 3.8 MEQ/L 4.2 MEQ/L 2.9 MEQ/L (3.5-5.1) (3.5-5.1) (3.5-5.1) Chloride Level 113 MEQ/L 114 MEQ/L 110 MEQ/L (98-107) (98-107) (98-107) Carbon Dioxide Level 25.9 MEQ/L 22.0 MEQ/L 20.4 MEQ/L (21.0-32.0) (21.0-32.0) (21.0-32.0) Anion Gap 7 MEQ/L (5-15) 9 MEQ/L (5-15) 12 MEQ/L (5-15) Blood Urea Nitrogen 19 MG/DL (7-18) 17 MG/DL (7-18) 15 MG/DL (7-18) Creatinine 0.43 MG/DL 0.37 MG/DL 0.63 MG/DL (0.60-1.30) (0.60-1.30) (0.60-1.30) Estimat Glomerular Filtration 203 ML/MIN 241 ML/MIN 130 ML/MIN Rate (>89) (>89) (>89) Random Glucose 88 MG/DL 63 MG/DL 137 MG/DL (74-106) (74-106) (74-106) Calcium Level 7.9 MG/DL 8.1 MG/DL 7.9 MG/DL (8.5-10.1) (8.5-10.1) (8.5-10.1) Total Bilirubin 1.7 MG/DL 2.1 MG/DL 1.5 MG/DL (0.2-1.0) (0.2-1.0) (0.2-1.0) Aspartate Amino Transf 138 U/L (15-37) 149 U/L (15-37) 159 U/L (15-37) (AST/SGOT) Alanine Aminotransferase 92 U/L (12-78) 81 U/L (12-78) 88 U/L (12-78) (ALT/SGPT) Alkaline Phosphatase 416 U/L 403 U/L 526 U/L (45-117) (45-117) (45-117) Total Protein 6.2 GM/DL 5.6 GM/DL 5.5 GM/DL (6.4-8.2) (6.4-8.2) (6.4-8.2) Albumin 1.8 GM/DL 1.7 GM/DL 1.6 GM/DL (3.4-5.0) (3.4-5.0) (3.4-5.0) Urine Color YELLOW (YELLW/STRAW) Urine Turbidity HAZY (CLEAR) Urine pH 8.0 (5.0-8.5) Urine Specific [place] 1.023 (1.002-1.035) Urine Protein 30 mg/dL (NEG-TRACE) Urine Glucose (UA) NEG mg/dL (NEG) Urine Ketones NEG mg/dL (NEG) Urine Occult Blood NEG (NEG) Urine Nitrite POS (NEG) Urine Bilirubin NEG (NEG) Urine Urobilinogen LESS THAN 2.0 MG/DL (LESS THAN 2.0) Urine Leukocyte Esterase LARGE (NEG) Urine WBC 65 /hpf (0-5) Urine WBC Clumps RARE (NONE) Urine Bacteria MANY /hpf (NONE) Urine Mucus FEW /lpf (OCC) Urine Yeast with Hyphae FEW (NONE) Urine Yeast (Budding) MOD (NONE) Microscopic Urinalysis Comment CATH-CULTURE IND Lipase 211 U/L (73-393) Phosphorus Level 2.7 MG/DL (2.5-4.9) Magnesium Level 1.8 MG/DL (1.5-2.5) Result Diagram: 04/17/17 0539 04/17/17 0539 Microbiology Microbiology Date/Time Procedure Status Source Growth 04/15/17 09:25 Gram Stain - Final Resulted Sputum Endotracheal 04/15/17 09:25 Sputum Culture - Preliminary Resulted Pseudomonas Aeruginosa 04/15/17 09:25 Urine Culture - Preliminary Resulted Urine Catheterized Urine Klebsiella Pneumoniae 04/15/17 10:40 Aerobic Blood Culture - Preliminary Resulted Blood Peripheral NO GROWTH IN 2 DAYS 04/15/17 10:40 Anaerobic Blood Culture - Preliminary Resulted Blood Peripheral NO GROWTH IN 2 DAYS 04/15/17 10:47 Aerobic Blood Culture - Preliminary Resulted Blood Peripheral NO GROWTH IN 2 DAYS 04/15/17 10:47 Anaerobic Blood Culture - Preliminary Resulted Blood Peripheral NO GROWTH IN 2 DAYS Imaging Last 48 hours Impressions Chest X-Ray 04/16/17 0000 Signed Impressions: Service Date/Time: Sunday, April 16, 2017 13:49 - CONCLUSION: 1. Bilateral pulmonary opacities. 2. Adequate placement of tracheostomy tube. Logan Morgan MD Abdomen/Pelvis CT 04/16/17 0000 Signed Impressions: Service Date/Time: Sunday, April 16, 2017 11:26 - CONCLUSION: 1. Cirrhosis and splenomegaly. 2. Ascites 3. Anasarca 4. No pancreas mass identified Yinka Harman MD Procedures * 04/16/17 -tracheostomy placement * 04/16/17 -endotracheal extubation * 04/15/17 - PEG tube placed. * 03/25/17 -Endotracheal intubation. . Assessment and Plan Disease Oriented Problem List: (1) Sepsis due to Acinetobacter Comment: Sepsis syndrome secondary to pneumonia -MDR Acinetobacter (2) Acute hypoxemic respiratory failure Comment: Remains intubated on mechanical ventilation. 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 However, he is highly prone to further aspiration and increasing shortness of breath) Comment: Secondary to respiratory failure, pneumonia. Now status post tracheostomy on 04/16/17. Remains on mechanical ventilation. (2) Pain 0-10 Scale: 0 Comment: Patient has had prolonged bedrest, and is now unable to reposition himself effectively. (3) Debility 0-10 Scale: Unable to quantify Comment: Secondary to acute illness and prolonged hospitalization. Pertinent Non-Medical Issues Psychosocial: 61-year-old with long-standing history of alcohol use and abuse, 1 daughter who is incarcerated in the [facility] halfway. Spiritual: No reported. Legal: Daughter Tamanna is, per [place] [employer] bam care decision proxy. She is currently incarcerated at [facility]. They are permitting her to participate in decisions at this time. Ethical issues impacting care: As stated above. . Important Contacts * Tamanna Sandhu, daughter/ HCP: [facility]. . Now in [facility] (#[phone]). Facilitation of conversations with Tamanna can be arranged through booking (#[phone]) in emergency situations to address goals of care.Ask for a [place] on staff as shifts rotate throughout the week. * Guillermo Roberts, daughter friend: [phone] (cell)- has frequent contact w Amie - has been very helpful. Prognosis Prognosis: Poor prognosis for meaningful recovery. . Code Status: Full Code Plan * HEALTHCARE DECISION-MAKING: Patient incapacitated secondary to clinical condition, unclear if he will regain capacity. Medical decision-making capacity will be reassessed once patient is extubated. Patient is , according to [place] statutes, health care proxy decision making falls to his only daughter, Tamanna. [facility][phone][facility] Facilitation of conversations with Tamanna can be arranged through booking (#) in emergency situations to address goals of care. Ask for a [place] on staff as shifts rotate throughout the week. * FULL CODE * GOALS OF CARE: Daughter previously elected to pursue aggressive care to include tracheostomy and PEG tube placement. S/P PEG tube 04/15/17 and tracheostomy 04/16/17. * SYMPTOMS: Dyspnea: secondary to respiratory failure. Remains on mechanical ventilation via tracheostomy. Has been failing CPAP trials. Likely ventilatory dependent. Debility: Secondary to burden of disease, acute illness and prolonged hospitalization. Pain: secondary to prolonged hospitalization, tubes and bedrest. Oxycodone available as needed. Will monitor need, appears comfortable during my visit. * Case discussed with bedside RN, Yared. * Palliative care contact information has been provided to patient's daughter and her boyfriend during prior telephone conversation. * Palliative care will continue to follow further clarifications of goals of care as patient's clinical course evolves. . Time Spent Total Floor Time (mins): 23 (Total time to include review of medical records, physical exam, and case discussion with bedside RN.) >50% Counseling/Coord of Care: Yes Attestation To help prompt me to consider important information that might be impacting today's encounter and assessment, information from prior notes written by myself or my colleagues may have been "brought forward" into today's note. My signature on this note, however, is an attestation that I personally performed the exam, history, and/or decision-making noted today, and, unless otherwise indicated, the interactions with patient, family, and staff as well as the review of records all occurred today. I also attest that the listed assessment and stated plan reflect my best clinical judgment today based on the combination of historical information, prior notes, and today's exam/ interactions. When time spent is documented, it refers only to time spent today by the signer, or if indicated, combined time spent today by collaborating physician/nurse practitioner. Melissa Mcclure April 17, 2017 15:42
[2017-04-18] VITALS (23 sets, daily range): BP systolic 104–115; BP diastolic 69–76; PULSE 100–111; RESP 18–32; TEMP 98.3–100.4; O2SAT 80–99
[2017-04-18] MEDS: DEXT 5%-NACL 0.45% 1000 ML INJ 1,000 ML IV SCH ×2 (00:57→14:55)
[2017-04-18] MEDS: CEFEPIME INJ 2,000 MG in SODIUM CHLORIDE 0.9% INJ 100 ML IV SCH ×2 (04:13→14:54)
[2017-04-18] MEDS: INSULIN NovoLIN REGULAR SUPPLEMENTAL SCALE SQ SCH ×6 (04:13→20:00)
[2017-04-18] MEDS: MIDODRINE 5 MG TAB PO SCH ×3 (05:48→20:21)
[2017-04-18 06:19] LABS: AUTOMATED NEUTROPHIL # 10.2 TH/MM3 (1.8-7.7); BASOPHIL % 0.2 % (0.0-2.0); EOSINOPHIL # 0.3 TH/MM3 (0-0.4); EOSINOPHIL % 2.3 % (0.0-4.0); HEMATOCRIT 28.4 % (39.0-51.0); HEMO FLAGS DIFF FINAL; LYMPH % 12.5 % (9.0-44.0); LYMPHOCYTE # 1.6 TH/MM3 (1.0-4.8); MEAN CORPUSCULAR HEMOGLOBIN 34.6 PG (27.0-34.0); MONO % 6.3 % (0.0-8.0); NEUT % 78.7 % (16.0-70.0); PLATELET COUNT 188 TH/MM3 (150-450); RED BLOOD COUNT 2.79 MIL/MM3 (4.50-5.90)
[2017-04-18 06:36] LABS: ALT (GPT) 104 U/L (12-78); ANION GAP 9 MEQ/L (5-15); AST (GOT) 185 U/L (15-37); BICARBONATE 22.3 MEQ/L (21.0-32.0); BLOOD UREA NITROGEN 15 MG/DL (7-18); CHLORIDE 110 MEQ/L (98-107); GLOMERULAR FILTRATION RATE 163 ML/MIN (>89); POTASSIUM 3.7 MEQ/L (3.5-5.1); SODIUM (NA) 141 MEQ/L (136-145)
[2017-04-18 06:37] LABS: ALKALINE PHOSPHATASE 554 U/L (45-117); TOTAL BILIRUBIN ADULT 1.2 MG/DL (0.2-1.0)
[2017-04-18] MEDS: CHLORHEXIDINE 0.12% (ORAL KIT) 15 ML CUP MT SCH ×2 (08:00→20:23)
[2017-04-18] MEDS: MUPIROCIN 2% OINT 1 APPLIC/GM SYR EACH NARE SCH ×2 (09:00→20:22)
[2017-04-18] MEDS: SODIUM CHLORIDE 0.9% FLUSH 10 ML FLUSH IVF SCH (09:00)
--- NOTE | 2017-04-18 09:35 | HHI.PR ---
Subjective Subjective Notes LATE ENTRY NOTE: Date seen: 04/17/2017 Patient resting in bed MV via trach Objective Vitals/I&O Vital Signs Date Time Temp Pulse Resp B/P Pulse Ox O2 Delivery O2 Flow Rate FiO2 04/18/17 06:00 111 04/18/17 04:22 97 35 04/18/17 04:00 99.2 22 105/69 Labs Laboratory Tests Test 04/17/17 04/18/17 04/18/17 18:43 05:51 05:56 Potassium Level 3.7 3.7 Sodium Level 141 Chloride Level 110 Carbon Dioxide Level 22.3 Anion Gap 9 Blood Urea Nitrogen 15 Creatinine 0.52 Estimat Glomerular Filtration 163 Rate Random Glucose 134 Calcium Level 7.9 Total Bilirubin 1.2 Aspartate Amino Transf 185 (AST/SGOT) Alanine Aminotransferase 104 (ALT/SGPT) Alkaline Phosphatase 554 Total Protein 6.0 Albumin 1.7 White Blood Count 13.0 Red Blood Count 2.79 Hemoglobin 9.7 Hematocrit 28.4 Mean Corpuscular Volume 102.0 Mean Corpuscular Hemoglobin 34.6 Mean Corpuscular Hemoglobin 34.0 Concent Red Cell Distribution Width 16.0 Platelet Count 188 Mean Platelet Volume 9.1 Neutrophils (%) (Auto) 78.7 Lymphocytes (%) (Auto) 12.5 Monocytes (%) (Auto) 6.3 Eosinophils (%) (Auto) 2.3 Basophils (%) (Auto) 0.2 Neutrophils # (Auto) 10.2 Lymphocytes # (Auto) 1.6 Monocytes # (Auto) 0.8 Eosinophils # (Auto) 0.3 Basophils # (Auto) 0.0 CBC Comment DIFF FINAL Differential Comment Date/Time Procedure Status Source Growth 04/15/17 10:47 Aerobic Blood Culture - Preliminary Resulted Blood Peripheral NO GROWTH IN 2 DAYS 04/15/17 10:47 Anaerobic Blood Culture - Preliminary Resulted Blood Peripheral NO GROWTH IN 2 DAYS 04/15/17 09:25 Urine Culture - Final Complete Urine Catheterized Urine Klebsiella Pneumoniae 04/15/17 09:25 Gram Stain - Final Complete Sputum Endotracheal 04/15/17 09:25 Sputum Culture - Final Complete Pseudomonas Aeruginosa Cardiovascular: Regular Lungs: Clear Abdomen: Other (PEG in place ) Extremities: No edema Narrative Exam trach in place without any complications; minimal bloody drainage on gauze A/P Assessment and Plan 61 year old male in need of trach placement for VDRF -POD1 trach -Continue routine trach care -Vent per CCM -GS will sign off; please call with ??Amarilis Sharma April 18, 2017 09:35
[2017-04-18] MEDS: levETIRAcetam 1000 MG INJ 100 ML IV SCH ×2 (10:02→20:21)
[2017-04-18] MEDS: NYSTATIN 100,000 U/GM PWD 15 GM BTL TOPICAL SCH ×2 (10:03→21:00)
[2017-04-18] MEDS: ARTIFICIAL TEARS OPTH SOLN 15 ML BTL EACH EYE SCH ×3 (10:03→18:00)
[2017-04-18] MEDS: PANTOPRAZOLE SODIUM 40 MG VIAL IV SCH (10:04)
[2017-04-18] MEDS: SODIUM CHLORIDE 0.9% FLUSH 10 ML FLUSH IV FLUSH SCH ×2 (10:04→20:21)
[2017-04-18] MEDS: RIFAXIMIN 550 MG TAB PO SCH ×2 (10:04→20:21)
[2017-04-18] MEDS: LACTOBACILLUS ACIDOPHILUS TAB PO SCH ×3 (10:04→18:00)
[2017-04-18] MEDS: LACTULOSE SYRUP 20 GM/30 ML CUP PO SCH ×2 (10:04→20:22)
[2017-04-18] MEDS: THIAMINE HCL 100 MG TAB PO SCH (10:04)
--- NOTE | 2017-04-18 11:29 | HHI.CCPN ---
Subjective Remarks/Hospital Course This is a 61-year-old male with a past history of alcohol abuse and a prior admission in 2015 for severe life-threatening hyponatremia at that time with a serum sodium of 98. He presents today with what he states is a 13 day history of worsening fatigue and weakness. He is very altered and is very difficult to understand the patient. What I can understand from him, is that at some point during these 13 days he has fallen and hit his face. Otherwise he states he lays on the couch, and has not gotten not much. He states he drinks 1 beer in the morning, and 1 beer in the afternoon. He does endorse taking some Xanax to help him sleep. He denies other drug use. He denies chest pain, shortness of breath, fever, chills, nausea, vomiting, abdominal pain. It is very difficult to get him to answer anymore questions about his medical history. His speech is very slurred and he is trying to talk about how he misses his daughter. Emergency department he was found to have a serum sodium of 99, a bilirubin of 8.9, lactate of 9.8, ammonia of 60, CK of 7000, elevated troponin of 4.9 with a normal MB ratio, creatinine 1.5, serum bicarbonate of 13. His white count is 12 , platelets 112. INR 1.9. His MELD calculates at 26. 4/2: Sodium level rapidly corrected overnight, likely secondary to appropriate correction of severe life-threatening dehydration. NS fluids changed to 1/2NS and correction slowed down significantly. sodium up to 130 this AM. CK downtrending. however, patient remains severely hypotensive requiring Levophed to maintain a map > 65 mmHg. This AM, serum K 1.6 (confirmed). started replacement with 200meq KCl and recheck K. 03/04: persists in vasoplegic distributive shock. afebrile. no evidence of infection. wbc downtrending. persists with severe life-threatening electrolyte derangements. passed swallow eval for nectar thick liquids. sodium stable at 131. ck downtrending. 03/05: persists in distributive shock. echo yesterday with EF 30%, globally decreased function. milrinone added yesterday with improvement in vasopressor requirement. still with multiple electrolyte abnormalities despite very aggressive replacement. very poor appetite. sodium stable at 131, which appears to be around baseline for him, looking back at prior records. also became agitated and delirious yesterday, likely secondary to etoh withdraw. started on Ativan and Librium. 03/06: electrolyte derangements persist. placed on continuous NaPhos infusion x 24h due to severe life-threatening hypophosphatemia. serial K, phos checks. weaning off levophed, milrinone persists. still poor appetite. sodium jumped from 132 to 139, but no significant mental status change, and we did not increase sodium load. 03/07: still requiring high electrolyte replacement. milrinone weaned to 0.375 mcg /kg/min overnight. still doing well with that. delirium persists. 03/08 Remains on milrinone. Electrolyte improving. Remains very lethargic, intermittently follows commands 03/09: Continues to be lethargic but wakes up follows some commands. Remains on milrinone will DC today. T max 100.1, urine output adequate sodium is 143 03/10: More awake alert, ate 50% of break fast. Will DC Dobhoff. Discontinue arterial and central lines. Delirium also improved, remains weak 03/11: doing much better this morning. no complaints. still with poor appetite. electrolytes improved. 03/20: We consulted for respiratory failure. Patient was last seen in room 1415 CMP receiving oral cares and became acutely hypoxic saturations 82% with coarse breath sounds. Halicat called. Patient was placed on a Venturi mask 50 % with desaturations to the mid 90s. He received Solu-Medrol 20 mg IV 1, Lasix 40 mg IV 1 and was transferred IM [facility]. Hemodynamically stable. Poor mentation 03/25: Reconsulted due to respiratory failure. Patient with gurgling/ transmitted upper airway sounds. Respiration the 50s. Decision made to orotracheally intubate. Noted to have been febrile with increased O2 course over the past 48 hours. 03/26: Afebrile. Requiring Nimbex drip for ventilator synchrony. Decreased urine output noted. Hemoglobin decreased likely dilutional. Tolerating tube feeding. Electrolytes been replaced. 03/27: Tmax 100.9. Currently 97.2. +6 L past 24 hours. Hemoglobin 8 transfuse overnight. Potassium 3. We'll discontinue Nimbex drip for vent synchrony today. 03/28: Afebrile. Negative fluid balance past 24 hours. Hemoglobin currently 9. Potassium 3.0. Currently on sedation vacation positive gag and otherwise unresponsive. 03/29: Tmax 103. Currently afebrile. Not tolerating tube feeds. Remains on Kiran-Synephrine. Did not tolerate sedation vacation back on Versed at 5 mg an hour fentanyl drip at 100 mcg an hour. One bowel movement. 03/30 Tube feeds remain on hold. On neosynephrine 40 mcg/min, RN states she has been weaning. Having BMs. On Versed 8 mg/hr and fentanyl 100 mcg/hr. 03/31 Off versed. Remains on fentanyl 100 mcg/hr. Having hiccups. Still on neosynephrine 40 mcg/min. Tolerating trickle feeds. Had 2 bowel movements 04/01: no meaningful change. still requires fentanyl for sedation. still on low- dose vasopressors. 04/02: no changes. still on levo @ 7 mcg/min. unable to wean off fentanyl due to tachycardia and tachypnea. 04/03: Off all sedation. On low-dose norepinephrine. Essentially unresponsive on the ventilator. Plan for likely withdrawal of care tomorrow 04/04: Off all sedation. Off all vasopressors. According to overnight RN was following commands. Will open eyes but not following commands this AM. 04/05 No events overnight. Afebrile On no sedation. 04/06: Resting comfortably in bed. Eyes are open. Moving head back and forth continuously. Weakly following commands with his upper and lower extremities. 04/07: Low-grade temperatures overnight. 99.8. Eyes are open. Moving back and forth. Positive BM. Continues to be following commands. 04/08 Patient remains intubated on no sedation awake and follows commands. Tmax 100.8 04/09 Patient remains intubated, tolerated CPAP all day and had good responses in UO with Bumex yesterday. Afebrile. 04/10: Tmax 99.1. Went back on set rate ventilation yesterday. Will attempt PSV trials throughout the day with goal to attempt extubation tomorrow. 04/11: Tmax 100.2. Currently 100.1. Did not tolerate weaning parameters with NIF -9 and unacceptable RSBI. Patient is arousable and follows commands eyes open 04/12: Omayra care reports tonic-clonic seizure activity this AM. Heart rate in the 140s during episode with violent shaking. On examination, patient's eyes are open and at baseline except currently not following commands. 04/13: had 2 seizures this morning, both resolved without medication interventions. Dr. Fabrizio navas'd at bedside earlier and ordered Cerebyx load. no other changes. plan for trach/peg next week Subjective: 04/14: still having breakthrough seizures on repeat EEG despite Cerebyx and Keppra. plan for PEG tomorrow. 04/15 No events overnight. Remains intubated. On no sedation. For PEG tube placement today. T:101.2 last night. 04/16 Patient remains intubated. For trach this afternoon. s/p PEG tube placement yesterday. Spiked fever with T:102.5 last night. 04/17 Patient s/p trach yesterday. T: 100.3 at midnight. 04/18 Continues to have low-grade fever. No change in mental status. Sputum Pseudomonas pansensitive. No seizures reported in the last 24 hours Objective Vital Signs Date Time Temp Pulse Resp B/P Pulse Ox O2 Delivery O2 Flow Rate FiO2 04/18/17 08:23 97 35 04/18/17 08:00 100.0 104 24 115/76 Intake and Output 04/17/17 04/17/17 04/18/17 08:00 16:00 00:00 Intake Total 860 ml 1174 ml 1300 ml Output Total 600 ml 550 ml 500 ml Balance 260 ml 624 ml 800 ml Result Diagram: 04/18/17 0556 04/18/17 0551 Imaging Last Impressions Chest X-Ray 04/16/17 0000 Signed Impressions: Service Date/Time: Sunday, April 16, 2017 13:49 - CONCLUSION: 1. Bilateral pulmonary opacities. 2. Adequate placement of tracheostomy tube. Logan Morgan MD Abdomen/Pelvis CT 04/16/17 0000 Signed Impressions: Service Date/Time: Sunday, April 16, 2017 11:26 - CONCLUSION: 1. Cirrhosis and splenomegaly. 2. Ascites 3. Anasarca 4. No pancreas mass identified Yinka Harman MD Liver Ultrasound 04/15/17 0000 Signed Impressions: Service Date/Time: Saturday, April 15, 2017 09:24 - CONCLUSION: 1. Abnormal appearance of the pancreas with a nonspecific hypoechoic area involving the posterior part of the pancreas along the head and body region. Recommend CT scan of the abdomen with oral and IV contrast further evaluation. 2. Fatty infiltration throughout the liver. 3. There is thickening of the gallbladder wall at 6 mm. This is suggestive of chronic gallbladder disease. 4. Small amount of free fluid adjacent to the liver and spleen in the upper abdomen.. 5. Right-sided pleural effusion. Víctor Rosas MD Abdomen X-Ray 04/13/17 0000 Signed Impressions: Service Date/Time: Thursday, April 13, 2017 10:36 - CONCLUSION: Dobbhoff tip in distal stomach. No evidence of obstruction. Logan Morgan MD Head CT 04/12/17 0000 Signed Impressions: Service Date/Time: Wednesday, April 12, 2017 21:30 - CONCLUSION: Pontine encephalomalacia. Left mastoiditis. Casper Alva MD Head Magnetic Resonance Angiography 03/28/17 0000 Signed Impressions: Service Date/Time: March 17:22 - CONCLUSION: Unremarkable examination. KShiv Castillo MD Brain MRI 03/28/17 0000 Signed Impressions: Service Date/Time: March 17:22 - CONCLUSION: 1. 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 Small subacute ischemic bilateral thalamic infarcts. 2. There has been no significant change when compared to the prior exam. Yinka Harman MD Lower Extremity Ultrasound 03/25/17 0000 Signed Impressions: Service Date/Time: Saturday, March 25, 2017 22:17 - CONCLUSION: No evidence of DVT. Víctor Rosas MD CT Angiography 03/21/17 0000 Signed Impressions: Service Date/Time: March 00:33 - CONCLUSION: No evidence of pulmonary embolism is identified. Mild atelectasis left lung base. Fluid or phlegm within the trachea. Milo Muhammad MD Abdomen Ultrasound 03/20/17 0000 Signed Impressions: Service Date/Time: Monday, March 20, 2017 11:38 - CONCLUSION: 1. Hepatosplenomegaly without focal lesion. 2. Probable sludge within the lumen of the gallbladder. No intrahepatic duct. Cheo Martínez MD Shoulder X-Ray 03/02/17 1404 Signed Impressions: Service Date/Time: Thursday, March 02, 2017 15:18 - CONCLUSION: No evidence of recent bony injury. Deformity of the lateral left clavicle suggests old healed trauma. Cheo Martínez MD Maxillofacial CT 03/02/17 1342 Signed Impressions: Service Date/Time: Thursday, March 02, 2017 14:52 - CONCLUSION: Negative CT of the facial bones. Cheo Martínez MD Chest CT 03/02/17 1342 Signed Impressions: Service Date/Time: Thursday, March 02, 2017 15:04 - CONCLUSION: 1. Abnormal appearance of the lateral left clavicle suggesting a combination of acute and chronic bony injury. Fracture lucencies without bridging callus is seen the region of the coracoid process. 2. The lungs are clear. No evidence of pneumothorax. 3. Moderate size hiatus hernia. Cheo Martínez MD Cervical Spine CT 03/02/17 1342 Signed Impressions: Service Date/Time: Thursday, March 02, 2017 14:52 - CONCLUSION: Negative CT cervical spine. Cheo Martínez MD Objective Remarks GENERAL: 61-year-old chronically ill appearing male, currently critically ill. HEENT: Healing abrasion left side scalp. TIMOTHY. Scleral icterus. Very poor dentition. NECK: Trachea Midline, Trach without bleed RESP: Coarse breath sounds bilaterally. Few wheezes. CARDIOVASCULAR: Tachycardia, RR. ABDOMEN: Slightly distended but soft, bowel sounds present, tolerating tube feeds. : Johns in place with conrad urine output. mild/moderate scrotal edema. MUSCULOSKELETAL: No obvious deformity. 1+ edema all extremities NEUROLOGICAL: + gag and cough. Opens eyes and weakly. Previously following commands with upper and lower extremities, not following today for me A/P Assessment and Plan Neuro/Psych: Osmotic demyelination syndrome Acute toxic metabolic encephalopathy secondary to hypercarbic respiratory failure Alcohol dependence Seizures (History of EtOH induced seizure withdrawal) Chronic benzodiazepine use Bilateral thalamic CVA Off all sedation. oxycodone 5 mg every 4 hours as needed for pain. Ativan 0.5 mg PRN for sz MRI 03/21 - T1/T2 prolonged with sparing of this central appears final fibers. 2 small spots in the posterior central spinal tract consistent with Osmotic demyelination syndrome. ODS most likely from rapid correction of Na, with underlying alcoholism. But patient was profoundly hypotensive in shock requiring multiple pressors at that time MRI brain 03/28 revealed subacute bilateral thalamic lacunar infarcts, ODS. CT head 03/05 revealed no acute intracranial findings Continue thiamine Seen by neurology/Dr. Mazariegos. EEG with persistent seizures. continue Keppra 1000mg BID Respiratory: Acute hypoxemic hypercapnic respiratory failure PRVC 18/550/1.2/. Continue with vent support keep sat >92% Ventilator bundle, s/p trach 04/16 Bronchodilator therapy every 4 hours and as needed SBT daily as pablo. Pulm toilet, trach care. TP for 2-4 hours Cardiovascular: Chronic Systolic heart failure Echocardiogram 03/04 revealed EF 35-40%. Mild mR. Left atrium dilated. JANE 33 mmHg TSH within normal limits 0.8 s/p hydrocortisone. Continue midodrine 10 mg 3 times Monitor HR and BP keep MAP>65mmHg Renal/FEN: Acute Kidney Injury- Rhabdomyolysis- resolved ODS-see neuro Hypernatremia Monitor renal function, I/O's, electrolytes replacement per protocol. On D51/2NS@75ml/hr. Will need K replacement today GI: EtOH cirrhosis Hyperammonemia Hiatal hernia Sigmoid diverticulosis History of umbilical hernia repair Hypoalbuminemia Continue tube feeds via PEG tube-(Jevity 1.5 with goal rate 60ml/hr) s/p PEG tube placement 04/15 CT abdomen/pelvis 04/16: Cirrhosis of liver, splenomegaly, anasarca, ascites(mild ) On Xifaxan 550 twice a day/lactulose 30 twice a day. US Liver 04/15: Abnormal appearance of the pancreas with a nonspecific hypoechoic area involving the posterior part of the pancreas along the head and body region. Fatty infiltration throughout the liver. There is thickening of the gallbladder wall at 6 mm. Suggestive of chronic gallbladder disease. Small amount of free fluid adjacent to the liver and spleen in the upper abdomen. Right-sided pleural effusion. 03/20 Ultrasound liver-hepatosplenomegaly. Sludge in gallbladder On IV Protonix Heme: Leukocytosis Macrocytic anemia Monitor CBC. No indications for transfusion of blood proximally postop B12 1452, Folate 15.2. TSH 0.8. ID: Aspiration pneumonia, PSAE in sputum Escherichia coli UTI 03/11 - completed therapy Acinetobacter pneumonia Pertinent cultures 04/15 Sputum cx: PSAE 04/15 urine cx: Klebsiella 04/15 BC: NGTD 04/12 BC: NGTD 04/08 - blood cultures 2 - no growth 04/08 - sputum - no growth 04/05 - urine -C GLABRATA AND C. ALBICANS 03/29 - blood cultures 2 - NGTD 03/25 - sputum --Acinetobacter. 03/25 - urine - NGTD 03/25 - blood cultures 2 -no growth 03/22 - urine - no growth 03/22 - blood cultures 2 - negative 03/20 - blood cultures 2 - no growth 03/11 - urine - Escherichia coli 03/02 - blood cultures 2 - no growth Followed by Dr. Lisa/ID. Changed Zosyn to cefepime 04/17 Off Flagyl po 03/24 Procalcitonin level: 0.40, C-diff PCR negative 04/10 Endocrine: Hyperglycemia of critical illness History of hypothyroidism SSI with Accu-Cheks every 4 hours to maintain euglycemia MSK: History of old left clavicle fracture PT/OT evaluate and treat Access Peripheral IV. Prophylaxis: GI - Protonix DVT - SCD/heparin subcutaneous Palliative care is following code status changed to full code per daughter's request. Tamanna Sandhu, daughter/ HCP: from [facility] [phone] now confirmed transferred to [facility] in [place] facility ) Code status -full code Level 3 Jeyson Shirley MD April 18, 2017 11:29
[2017-04-18] MEDS: ACETAMINOPHEN 325 MG TAB PO PRN (20:25)
[2017-04-19] VITALS (21 sets, daily range): BP systolic 96–115; BP diastolic 65–78; PULSE 79–109; RESP 18–36; TEMP 98.3–100.9; O2SAT 94–100
[2017-04-19] MEDS: INSULIN NovoLIN REGULAR SUPPLEMENTAL SCALE SQ SCH ×7 (03:25→23:30)
[2017-04-19] MEDS: CEFEPIME INJ 2,000 MG in SODIUM CHLORIDE 0.9% INJ 100 ML IV SCH ×2 (03:28→15:00)
[2017-04-19] MEDS: DEXT 5%-NACL 0.45% 1000 ML INJ 1,000 ML IV SCH ×2 (03:28→17:00)
--- NOTE | 2017-04-19 05:22 | RADRPT ---
EXAM DATE/TIME: 04/19/2017 04:24 [place] COMPARISON: CHEST SINGLE AP, April 16, 2017, 13:49. INDICATIONS : Evalaute for respiratory disease. MEDICAL HISTORY : MRSA, CVA SURGICAL HISTORY : Craniotomy. ENCOUNTER: Subsequent ACUITY: 1 month PAIN SCORE: Non-responsive. LOCATION: chest FINDINGS: Bilateral mostly basilar airspace disease similar to April 16 with tracheostomy in satisfactory positio n. Heart size upper limits normal. CONCLUSION: 1. Stable basilar airspace disease. Tracheostomy unchanged. Miguel Looney MD on April 19, 2017 at 5:20 Board Certified Radiologist. This report was verified electronically.
[2017-04-19] MEDS: MIDODRINE 5 MG TAB PO SCH ×3 (05:32→20:08)
[2017-04-19 06:09] LABS: AUTOMATED NEUTROPHIL # 8.9 TH/MM3 (1.8-7.7); BASOPHIL # 0.1 TH/MM3 (0-0.2); BASOPHIL % 0.8 % (0.0-2.0); EOSINOPHIL # 0.2 TH/MM3 (0-0.4); HEMATOCRIT 28.3 % (39.0-51.0); HEMO FLAGS DIFF FINAL; LYMPH % 11.1 % (9.0-44.0); LYMPHOCYTE # 1.2 TH/MM3 (1.0-4.8); MEAN CELL VOLUME 102.4 FL (80.0-100.0); MEAN CORPUSCULAR HEMOGLOBIN 33.4 PG (27.0-34.0); MEAN CORPUSCULAR HGB CONC 32.7 % (32.0-36.0); MONO % 6.1 % (0.0-8.0); PLATELET COUNT 181 TH/MM3 (150-450); RED BLOOD COUNT 2.76 MIL/MM3 (4.50-5.90); RED CELL DISTRIBUTION WIDTH 16.2 % (11.6-17.2); WHITE BLOOD COUNT 11.2 TH/MM3 (4.0-11.0)
[2017-04-19 06:33] LABS: ALKALINE PHOSPHATASE 480 U/L (45-117); ALT (GPT) 98 U/L (12-78); ANION GAP 9 MEQ/L (5-15); AST (GOT) 168 U/L (15-37); BICARBONATE 24.5 MEQ/L (21.0-32.0); BLOOD UREA NITROGEN 15 MG/DL (7-18); CHLORIDE 108 MEQ/L (98-107); GLOMERULAR FILTRATION RATE 203 ML/MIN (>89); POTASSIUM 3.6 MEQ/L (3.5-5.1); SODIUM (NA) 141 MEQ/L (136-145); TOTAL BILIRUBIN ADULT 1.1 MG/DL (0.2-1.0)
[2017-04-19] MEDS: PANTOPRAZOLE SODIUM 40 MG VIAL IV SCH (08:34)
[2017-04-19] MEDS: SODIUM CHLORIDE 0.9% FLUSH 10 ML FLUSH IV FLUSH SCH ×2 (08:34→20:08)
[2017-04-19] MEDS: levETIRAcetam 1000 MG INJ 100 ML IV SCH ×2 (08:34→20:08)
[2017-04-19] MEDS: LACTOBACILLUS ACIDOPHILUS TAB PO SCH ×3 (08:34→18:00)
[2017-04-19] MEDS: THIAMINE HCL 100 MG TAB PO SCH (08:35)
[2017-04-19] MEDS: LACTULOSE SYRUP 20 GM/30 ML CUP PO SCH ×2 (08:35→21:00)
[2017-04-19] MEDS: RIFAXIMIN 550 MG TAB PO SCH ×2 (08:35→20:08)
[2017-04-19] MEDS: SODIUM CHLORIDE 0.9% FLUSH 10 ML FLUSH IVF SCH (09:00)
[2017-04-19] MEDS: MUPIROCIN 2% OINT 1 APPLIC/GM SYR EACH NARE SCH ×2 (09:00→20:08)
[2017-04-19] MEDS: ARTIFICIAL TEARS OPTH SOLN 15 ML BTL EACH EYE SCH ×3 (13:00→18:00)
[2017-04-19] MEDS: NYSTATIN 100,000 U/GM PWD 15 GM BTL TOPICAL SCH ×2 (13:56→20:08)
[2017-04-19] MEDS: CHLORHEXIDINE 0.12% (ORAL KIT) 15 ML CUP MT SCH ×2 (13:57→20:00)
--- NOTE | 2017-04-19 14:47 | HHI.CCPN ---
Subjective Remarks/Hospital Course This is a 61-year-old male with a past history of alcohol abuse and a prior admission in 2015 for severe life-threatening hyponatremia at that time with a serum sodium of 98. He presents today with what he states is a 13 day history of worsening fatigue and weakness. He is very altered and is very difficult to understand the patient. What I can understand from him, is that at some point during these 13 days he has fallen and hit his face. Otherwise he states he lays on the couch, and has not gotten not much. He states he drinks 1 beer in the morning, and 1 beer in the afternoon. He does endorse taking some Xanax to help him sleep. He denies other drug use. He denies chest pain, shortness of breath, fever, chills, nausea, vomiting, abdominal pain. It is very difficult to get him to answer anymore questions about his medical history. His speech is very slurred and he is trying to talk about how he misses his daughter. Emergency department he was found to have a serum sodium of 99, a bilirubin of 8.9, lactate of 9.8, ammonia of 60, CK of 7000, elevated troponin of 4.9 with a normal MB ratio, creatinine 1.5, serum bicarbonate of 13. His white count is 12 , platelets 112. INR 1.9. His MELD calculates at 26. 4/2: Sodium level rapidly corrected overnight, likely secondary to appropriate correction of severe life-threatening dehydration. NS fluids changed to 1/2NS and correction slowed down significantly. sodium up to 130 this AM. CK downtrending. however, patient remains severely hypotensive requiring Levophed to maintain a map > 65 mmHg. This AM, serum K 1.6 (confirmed). started replacement with 200meq KCl and recheck K. 03/04: persists in vasoplegic distributive shock. afebrile. no evidence of infection. wbc downtrending. persists with severe life-threatening electrolyte derangements. passed swallow eval for nectar thick liquids. sodium stable at 131. ck downtrending. 03/05: persists in distributive shock. echo yesterday with EF 30%, globally decreased function. milrinone added yesterday with improvement in vasopressor requirement. still with multiple electrolyte abnormalities despite very aggressive replacement. very poor appetite. sodium stable at 131, which appears to be around baseline for him, looking back at prior records. also became agitated and delirious yesterday, likely secondary to etoh withdraw. started on Ativan and Librium. 03/06: electrolyte derangements persist. placed on continuous NaPhos infusion x 24h due to severe life-threatening hypophosphatemia. serial K, phos checks. weaning off levophed, milrinone persists. still poor appetite. sodium jumped from 132 to 139, but no significant mental status change, and we did not increase sodium load. 03/07: still requiring high electrolyte replacement. milrinone weaned to 0.375 mcg /kg/min overnight. still doing well with that. delirium persists. 03/08 Remains on milrinone. Electrolyte improving. Remains very lethargic, intermittently follows commands 03/09: Continues to be lethargic but wakes up follows some commands. Remains on milrinone will DC today. T max 100.1, urine output adequate sodium is 143 03/10: More awake alert, ate 50% of break fast. Will DC Dobhoff. Discontinue arterial and central lines. Delirium also improved, remains weak 03/11: doing much better this morning. no complaints. still with poor appetite. electrolytes improved. 03/20: We consulted for respiratory failure. Patient was last seen in room 1415 CMP receiving oral cares and became acutely hypoxic saturations 82% with coarse breath sounds. Halicat called. Patient was placed on a Venturi mask 50 % with desaturations to the mid 90s. He received Solu-Medrol 20 mg IV 1, Lasix 40 mg IV 1 and was transferred IM [facility] 521. Hemodynamically stable. Poor mentation 03/25: Reconsulted due to respiratory failure. Patient with gurgling/ transmitted upper airway sounds. Respiration the 50s. Decision made to orotracheally intubate. Noted to have been febrile with increased O2 course over the past 48 hours. 03/26: Afebrile. Requiring Nimbex drip for ventilator synchrony. Decreased urine output noted. Hemoglobin decreased likely dilutional. Tolerating tube feeding. Electrolytes been replaced. 03/27: Tmax 100.9. Currently 97.2. +6 L past 24 hours. Hemoglobin 8 transfuse overnight. Potassium 3. We'll discontinue Nimbex drip for vent synchrony today. 03/28: Afebrile. Negative fluid balance past 24 hours. Hemoglobin currently 9. Potassium 3.0. Currently on sedation vacation positive gag and otherwise unresponsive. 03/29: Tmax 103. Currently afebrile. Not tolerating tube feeds. Remains on Kiran-Synephrine. Did not tolerate sedation vacation back on Versed at 5 mg an hour fentanyl drip at 100 mcg an hour. One bowel movement. 03/30 Tube feeds remain on hold. On neosynephrine 40 mcg/min, RN states she has been weaning. Having BMs. On Versed 8 mg/hr and fentanyl 100 mcg/hr. 03/31 Off versed. Remains on fentanyl 100 mcg/hr. Having hiccups. Still on neosynephrine 40 mcg/min. Tolerating trickle feeds. Had 2 bowel movements 04/01: no meaningful change. still requires fentanyl for sedation. still on low- dose vasopressors. 04/02: no changes. still on levo @ 7 mcg/min. unable to wean off fentanyl due to tachycardia and tachypnea. 04/03: Off all sedation. On low-dose norepinephrine. Essentially unresponsive on the ventilator. Plan for likely withdrawal of care tomorrow 04/04: Off all sedation. Off all vasopressors. According to overnight RN was following commands. Will open eyes but not following commands this AM. 04/05 No events overnight. Afebrile On no sedation. 04/06: Resting comfortably in bed. Eyes are open. Moving head back and forth continuously. Weakly following commands with his upper and lower extremities. 04/07: Low-grade temperatures overnight. 99.8. Eyes are open. Moving back and forth. Positive BM. Continues to be following commands. 04/08 Patient remains intubated on no sedation awake and follows commands. Tmax 100.8 04/09 Patient remains intubated, tolerated CPAP all day and had good responses in UO with Bumex yesterday. Afebrile. 04/10: Tmax 99.1. Went back on set rate ventilation yesterday. Will attempt PSV trials throughout the day with goal to attempt extubation tomorrow. 04/11: Tmax 100.2. Currently 100.1. Did not tolerate weaning parameters with NIF -9 and unacceptable RSBI. Patient is arousable and follows commands eyes open 04/12: Omayra care reports tonic-clonic seizure activity this AM. Heart rate in the 140s during episode with violent shaking. On examination, patient's eyes are open and at baseline except currently not following commands. 04/13: had 2 seizures this morning, both resolved without medication interventions. Dr. Fabrizio navas'd at bedside earlier and ordered Cerebyx load. no other changes. plan for trach/peg next week Subjective: 04/14: still having breakthrough seizures on repeat EEG despite Cerebyx and Keppra. plan for PEG tomorrow. 04/15 No events overnight. Remains intubated. On no sedation. For PEG tube placement today. T:101.2 last night. 04/16 Patient remains intubated. For trach this afternoon. s/p PEG tube placement yesterday. Spiked fever with T:102.5 last night. 04/17 Patient s/p trach yesterday. T: 100.3 at midnight. 04/18 Continues to have low-grade fever. No change in mental status. Sputum Pseudomonas pansensitive. No seizures reported in the last 24 hours 04/19: No fever reported. Slightly more awake and was commands on right upper extremity by squeezing hands very weakly. On CPAP 15/04. Slightly tachypneic Objective Vital Signs Date Time Temp Pulse Resp B/P Pulse Ox O2 Delivery O2 Flow Rate FiO2 04/19/17 14:00 79 04/19/17 12:00 35 04/19/17 12:00 99.2 32 112/65 95 Intake and Output 04/18/17 04/18/17 04/19/17 08:00 16:00 00:00 Intake Total 1010 ml 1281 ml 1626 ml Output Total 500 ml 750 ml 800 ml Balance 510 ml 531 ml 826 ml Result Diagram: 04/19/17 0519 04/19/17 0515 Imaging Last Impressions Chest X-Ray 04/16/17 0000 Signed Impressions: Service Date/Time: Sunday, April 16, 2017 13:49 - CONCLUSION: 1. Bilateral pulmonary opacities. 2. Adequate placement of tracheostomy tube. Logan Morgan MD Abdomen/Pelvis CT 04/16/17 0000 Signed Impressions: Service Date/Time: Sunday, April 16, 2017 11:26 - CONCLUSION: 1. Cirrhosis and splenomegaly. 2. Ascites 3. Anasarca 4. No pancreas mass identified Yinka Harman MD Liver Ultrasound 04/15/17 0000 Signed Impressions: Service Date/Time: Saturday, April 15, 2017 09:24 - CONCLUSION: 1. Abnormal appearance of the pancreas with a nonspecific hypoechoic area involving the posterior part of the pancreas along the head and body region. Recommend CT scan of the abdomen with oral and IV contrast further evaluation. 2. Fatty infiltration throughout the liver. 3. There is thickening of the gallbladder wall at 6 mm. This is suggestive of chronic gallbladder disease. 4. Small amount of free fluid adjacent to the liver and spleen in the upper abdomen.. 5. Right-sided pleural effusion. Víctor Rosas MD Abdomen X-Ray 04/13/17 0000 Signed Impressions: Service Date/Time: Thursday, April 13, 2017 10:36 - CONCLUSION: Dobbhoff tip in distal stomach. No evidence of obstruction. Logan Morgan MD Head CT 04/12/17 0000 Signed Impressions: Service Date/Time: Wednesday, April 12, 2017 21:30 - CONCLUSION: Pontine encephalomalacia. Left mastoiditis. Casper Alva MD Head Magnetic Resonance Angiography 03/28/17 0000 Signed Impressions: Service Date/Time: March 17:22 - CONCLUSION: Unremarkable examination. KShiv Castillo MD Brain MRI 03/28/17 0000 Signed Impressions: Service Date/Time: March 17:22 - CONCLUSION: 1. 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 Small subacute ischemic bilateral thalamic infarcts. 2. There has been no significant change when compared to the prior exam. Yinka Harman MD Lower Extremity Ultrasound 03/25/17 0000 Signed Impressions: Service Date/Time: Saturday, March 25, 2017 22:17 - CONCLUSION: No evidence of DVT. Víctor Rosas MD CT Angiography 03/21/17 0000 Signed Impressions: Service Date/Time: March 00:33 - CONCLUSION: No evidence of pulmonary embolism is identified. Mild atelectasis left lung base. Fluid or phlegm within the trachea. Milo Muhammad MD Abdomen Ultrasound 03/20/17 0000 Signed Impressions: Service Date/Time: Monday, March 20, 2017 11:38 - CONCLUSION: 1. Hepatosplenomegaly without focal lesion. 2. Probable sludge within the lumen of the gallbladder. No intrahepatic duct. Cheo Martínez MD Shoulder X-Ray 03/02/17 1404 Signed Impressions: Service Date/Time: Thursday, March 02, 2017 15:18 - CONCLUSION: No evidence of recent bony injury. Deformity of the lateral left clavicle suggests old healed trauma. Cheo Martínez MD Maxillofacial CT 03/02/17 1342 Signed Impressions: Service Date/Time: Thursday, March 02, 2017 14:52 - CONCLUSION: Negative CT of the facial bones. Cheo Martínez MD Chest CT 03/02/17 1342 Signed Impressions: Service Date/Time: Thursday, March 02, 2017 15:04 - CONCLUSION: 1. Abnormal appearance of the lateral left clavicle suggesting a combination of acute and chronic bony injury. Fracture lucencies without bridging callus is seen the region of the coracoid process. 2. The lungs are clear. No evidence of pneumothorax. 3. Moderate size hiatus hernia. Cheo Martínez MD Cervical Spine CT 03/02/17 1342 Signed Impressions: Service Date/Time: Thursday, March 02, 2017 14:52 - CONCLUSION: Negative CT cervical spine. Cheo Martínez MD Objective Remarks GENERAL: 61-year-old chronically ill appearing male, currently critically ill. HEENT: Healing abrasion left side scalp. TIMOTHY. Scleral icterus. Very poor dentition. NECK: Trachea Midline, Trach without bleed RESP: Coarse breath sounds bilaterally. Few wheezes. CARDIOVASCULAR: Tachycardia, RR. ABDOMEN: Slightly distended but soft, bowel sounds present, tolerating tube feeds. : Johns in place with conrad urine output. mild/moderate scrotal edema. MUSCULOSKELETAL: No obvious deformity. 1+ edema all extremities NEUROLOGICAL: + gag and cough. Opens eyes. Slightly more awake and following commands on right upper extremity by squeezing hands very weakly A/P Assessment and Plan Neuro/Psych: Osmotic demyelination syndrome Acute toxic metabolic encephalopathy secondary to hypercarbic respiratory failure Alcohol dependence Seizures (History of EtOH induced seizure withdrawal) Chronic benzodiazepine use Bilateral thalamic CVA Off all sedation. oxycodone 5 mg every 4 hours as needed for pain. Ativan 0.5 mg PRN for sz MRI 03/21 - T1/T2 prolonged with sparing of this central appears final fibers. 2 small spots in the posterior central spinal tract consistent with Osmotic demyelination syndrome. ODS most likely from rapid correction of Na, with underlying alcoholism. But patient was profoundly hypotensive in shock requiring multiple pressors at that time MRI brain 03/28 revealed subacute bilateral thalamic lacunar infarcts, ODS. CT head 03/05 revealed no acute intracranial findings Continue thiamine Seen by neurology/Dr. Mazariegos. EEG with persistent seizures. continue Keppra 1000mg BID Respiratory: Acute hypoxemic hypercapnic respiratory failure PRVC 18/550/1.2/. Continue with vent support keep sat >92% Ventilator bundle, s/p trach 04/16 Bronchodilator therapy every 4 hours and as needed SBT daily as pablo. Pulm toilet, trach care. TP for 2-4 hours Cardiovascular: Chronic Systolic heart failure Echocardiogram 03/04 revealed EF 35-40%. Mild mR. Left atrium dilated. JANE 33 mmHg TSH within normal limits 0.8 s/p hydrocortisone. Continue midodrine 10 mg 3 times Monitor HR and BP keep MAP>65mmHg Renal/FEN: Acute Kidney Injury- Rhabdomyolysis- resolved ODS-see neuro Hypernatremia Monitor renal function, I/O's, electrolytes replacement per protocol. On D51/2NS@75ml/hr. DC today GI: EtOH cirrhosis Hyperammonemia Hiatal hernia Sigmoid diverticulosis History of umbilical hernia repair Hypoalbuminemia Continue tube feeds via PEG tube-(Jevity 1.5 with goal rate 60ml/hr) s/p PEG tube placement 04/15 CT abdomen/pelvis 04/16: Cirrhosis of liver, splenomegaly, anasarca, ascites(mild ) On Xifaxan 550 twice a day/lactulose 30 twice a day. US Liver 04/15: Abnormal appearance of the pancreas with a nonspecific hypoechoic area involving the posterior part of the pancreas along the head and body region. Fatty infiltration throughout the liver. There is thickening of the gallbladder wall at 6 mm. Suggestive of chronic gallbladder disease. Small amount of free fluid adjacent to the liver and spleen in the upper abdomen. Right-sided pleural effusion. 03/20 Ultrasound liver-hepatosplenomegaly. Sludge in gallbladder On IV Protonix Heme: Leukocytosis Macrocytic anemia Monitor CBC. No indications for transfusion of blood proximally postop B12 1452, Folate 15.2. TSH 0.8. ID: Aspiration pneumonia, PSAE in sputum Escherichia coli UTI 03/11 - completed therapy Acinetobacter pneumonia Pertinent cultures 04/15 Sputum cx: PSAE 04/15 urine cx: Klebsiella 04/15 BC: NGTD 04/12 BC: NGTD 04/08 - blood cultures 2 - no growth 04/08 - sputum - no growth 04/05 - urine -C GLABRATA AND C. ALBICANS 03/29 - blood cultures 2 - NGTD 03/25 - sputum --Acinetobacter. 03/25 - urine - NGTD 03/25 - blood cultures 2 -no growth 03/22 - urine - no growth 03/22 - blood cultures 2 - negative 03/20 - blood cultures 2 - no growth 03/11 - urine - Escherichia coli 03/02 - blood cultures 2 - no growth Followed by Dr. Lisa/ID. Changed Zosyn to cefepime 04/17 Off Flagyl po 03/24 Procalcitonin level: 0.40, C-diff PCR negative 04/10 Endocrine: Hyperglycemia of critical illness History of hypothyroidism SSI with Accu-Cheks every 4 hours to maintain euglycemia MSK: History of old left clavicle fracture PT/OT evaluate and treat Access Peripheral IV. Prophylaxis: GI - Protonix DVT - SCD/heparin subcutaneous Palliative care is following code status changed to full code per daughter's request. Tamanna Sandhu, daughter/ HCP: from [facility] [phone] now confirmed transferred to [facility] in [place] facility ) Code status -full code Level 3 Jeyson Shirley MD April 19, 2017 14:47
--- NOTE | 2017-04-19 16:05 | HHI.IDPN ---
Subjective Subjective Remarks Notes reviewed D/W RN Low grade temps, intermittent Did 5 hours CPAP today S/P trach Awake and following some commands UC with Klebsiella R to Zosyn Sputum with PSAE Last CXR stable infiltrates Antibiotics Cefepime Lines PIV Past Medical History ETOHism Allergies: Coded Allergies: PEANUTS (Unverified Allergy, Severe, 03/02/17) *MDRO Multi-Drug Resistant Organism (Verified Adverse Reaction, Unknown, ) MRSA PCR screen POSITIVE - 03/02/17 MDR Acinetobacter (sputum) - 03/25/17 Objective . Vital Signs Date Time Temp Pulse Resp B/P Pulse Ox O2 Delivery O2 Flow Rate FiO2 04/19/17 15:06 98 35 04/19/17 14:00 79 04/19/17 12:00 79 04/19/17 12:00 35 04/19/17 12:00 99.2 108 32 112/65 95 04/19/17 11:29 96 35 04/19/17 11:15 106 36 96 04/19/17 11:15 106 36 96 04/19/17 11:00 109 34 111/74 96 04/19/17 11:00 109 34 111/74 96 04/19/17 10:00 79 04/19/17 08:00 35 04/19/17 08:00 79 04/19/17 08:00 99.0 101 18 113/76 96 04/19/17 07:51 100 35 04/19/17 06:00 100 04/19/17 04:17 96 35 04/19/17 04:00 101 04/19/17 04:00 98.7 102 24 114/78 94 04/19/17 04:00 35 04/19/17 02:00 100 04/19/17 01:22 95 35 04/19/17 00:00 35 04/19/17 00:00 90 04/19/17 00:00 98.3 94 18 115/76 97 04/18/17 22:00 100 04/18/17 21:57 97 35 04/18/17 20:00 35 04/18/17 20:00 100.4 105 21 111/73 97 04/18/17 20:00 100 04/18/17 18:24 99 35 04/18/17 18:00 108 04/18/17 04/18/17 04/19/17 15:00 23:00 07:00 Intake Total 1281 ml 1626 ml 788 ml Output Total 750 ml 800 ml 350 ml Balance 531 ml 826 ml 438 ml IV Total 656 ml 940 ml 390 ml Tube Feeding 425 ml 566 ml 278 ml Other 200 ml 120 ml 120 ml Output Urine Total 550 ml 350 ml 150 ml Stool Total 200 ml 450 ml 200 ml . Laboratory Tests Test 04/18/17 04/19/17 05:56 05:19 White Blood Count 13.0 TH/MM3 11.2 TH/MM3 Red Blood Count 2.79 MIL/MM3 2.76 MIL/MM3 Hemoglobin 9.7 GM/DL 9.2 GM/DL Hematocrit 28.4 % 28.3 % Mean Corpuscular Volume 102.0 FL 102.4 FL Mean Corpuscular Hemoglobin 34.6 PG 33.4 PG Mean Corpuscular Hemoglobin 34.0 % 32.7 % Concent Red Cell Distribution Width 16.0 % 16.2 % Platelet Count 188 TH/MM3 181 TH/MM3 Mean Platelet Volume 9.1 FL 9.3 FL Neutrophils (%) (Auto) 78.7 % 80.0 % Lymphocytes (%) (Auto) 12.5 % 11.1 % Monocytes (%) (Auto) 6.3 % 6.1 % Eosinophils (%) (Auto) 2.3 % 2.0 % Basophils (%) (Auto) 0.2 % 0.8 % Neutrophils # (Auto) 10.2 TH/MM3 8.9 TH/MM3 Lymphocytes # (Auto) 1.6 TH/MM3 1.2 TH/MM3 Monocytes # (Auto) 0.8 TH/MM3 0.7 TH/MM3 Eosinophils # (Auto) 0.3 TH/MM3 0.2 TH/MM3 Basophils # (Auto) 0.0 TH/MM3 0.1 TH/MM3 CBC Comment DIFF FINAL DIFF FINAL Differential Comment Laboratory Tests Test 04/17/17 04/18/17 04/19/17 18:43 05:51 05:15 Potassium Level 3.7 MEQ/L 3.7 MEQ/L 3.6 MEQ/L Sodium Level 141 MEQ/L 141 MEQ/L Chloride Level 110 MEQ/L 108 MEQ/L Carbon Dioxide Level 22.3 MEQ/L 24.5 MEQ/L Anion Gap 9 MEQ/L 9 MEQ/L Blood Urea Nitrogen 15 MG/DL 15 MG/DL Creatinine 0.52 MG/DL 0.43 MG/DL Estimat Glomerular Filtration 163 ML/MIN 203 ML/MIN Rate Random Glucose 134 MG/DL 131 MG/DL Calcium Level 7.9 MG/DL 7.7 MG/DL Total Bilirubin 1.2 MG/DL 1.1 MG/DL Aspartate Amino Transf 185 U/L 168 U/L (AST/SGOT) Alanine Aminotransferase 104 U/L 98 U/L (ALT/SGPT) Alkaline Phosphatase 554 U/L 480 U/L Total Protein 6.0 GM/DL 5.8 GM/DL Albumin 1.7 GM/DL 1.5 GM/DL Imaging Chest X-Ray 04/19/17 0600 Signed Impressions: Service Date/Time: Wednesday, April 19, 2017 04:24 - CONCLUSION: 1. Stable basilar airspace disease. Tracheostomy unchanged. Miguel Looney MD Liver Ultrasound 04/15/17 0000 Signed Impressions: Service Date/Time: Saturday, April 15, 2017 09:24 - CONCLUSION: 1. Abnormal appearance of the pancreas with a nonspecific hypoechoic area involving the posterior part of the pancreas along the head and body region. Recommend CT scan of the abdomen with oral and IV contrast further evaluation. 2. Fatty infiltration throughout the liver. 3. There is thickening of the gallbladder wall at 6 mm. This is suggestive of chronic gallbladder disease. 4. Small amount of free fluid adjacent to the liver and spleen in the upper abdomen.. 5. Right-sided pleural effusion. Víctor Rosas MD Chest X-Ray 04/13/17 06 Signed Impressions: Service Date/Time: Thursday, April 13, 2017 03:50 - CONCLUSION: Stable bilateral scattered pulmonary infiltrates. Víctor Rosas MD Abdomen X-Ray 04/13/17 0000 Signed Impressions: Service Date/Time: Thursday, April 13, 2017 10:36 - CONCLUSION: Dobbhoff tip in distal stomach. No evidence of obstruction. Logan Morgan MD Head CT 04/12/17 0000 Signed Impressions: Service Date/Time: Wednesday, April 12, 2017 21:30 - CONCLUSION: Pontine encephalomalacia. Left mastoiditis. Casper Alva MD Head Magnetic Resonance Angiography 03/28/17 0000 Signed Impressions: Service Date/Time: March 17:22 - CONCLUSION: Unremarkable examination. Bety Castillo MD Brain MRI 03/28/17 0000 Signed Impressions: Service Date/Time: March 17:22 - CONCLUSION: 1. 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 Small subacute ischemic bilateral thalamic infarcts. 2. There has been no significant change when compared to the prior exam. Yinka Harman MD Lower Extremity Ultrasound 03/25/17 0000 Signed Impressions: Service Date/Time: Saturday, March 25, 2017 22:17 - CONCLUSION: No evidence of DVT. Víctor Rosas MD CT Angiography 03/21/17 0000 Signed Impressions: Service Date/Time: March 00:33 - CONCLUSION: No evidence of pulmonary embolism is identified. Mild atelectasis left lung base. Fluid or phlegm within the trachea. Miol Muhammad MD Abdomen Ultrasound 03/20/17 0000 Signed Impressions: Service Date/Time: Monday, March 20, 2017 11:38 - CONCLUSION: 1. Hepatosplenomegaly without focal lesion. 2. Probable sludge within the lumen of the gallbladder. No intrahepatic duct. Cheo Martínez MD Shoulder X-Ray 03/02/17 1404 Signed Impressions: Service Date/Time: Thursday, March 02, 2017 15:18 - CONCLUSION: No evidence of recent bony injury. Deformity of the lateral left clavicle suggests old healed trauma. Cheo Martínez MD Maxillofacial CT 03/02/17 1342 Signed Impressions: Service Date/Time: Thursday, March 02, 2017 14:52 - CONCLUSION: Negative CT of the facial bones. Cheo Martínez MD Chest CT 03/02/17 1342 Signed Impressions: Service Date/Time: Thursday, March 02, 2017 15:04 - CONCLUSION: 1. Abnormal appearance of the lateral left clavicle suggesting a combination of acute and chronic bony injury. Fracture lucencies without bridging callus is seen the region of the coracoid process. 2. The lungs are clear. No evidence of pneumothorax. 3. Moderate size hiatus hernia. Cheo Martínez MD Cervical Spine CT 03/02/17 1342 Signed Impressions: Service Date/Time: Thursday, March 02, 2017 14:52 - CONCLUSION: Negative CT cervical spine. Cheo Martínez MD Abdomen/Pelvis CT 03/02/17 1342 Signed Impressions: Service Date/Time: Thursday, March 02, 2017 15:04 - CONCLUSION: Moderate size hiatus hernia. Scattered small sigmoid diverticula. Otherwise negative exam. Cheo Martínez MD Chest X-Ray 04/08/17 0600 Signed Impressions: Service Date/Time: Saturday, April 08, 2017 05:10 - CONCLUSION: 1. Endotracheal tube and weighted feeding tube. 2. Bilateral pulmonary infiltrates. Some improvement from the prior study. Cheo Barrera Jr., MD Chest X-Ray 03/27/17 0600 Signed Impressions: Service Date/Time: Monday, March 27, 2017 02:33 - CONCLUSION: No significant interval change. Víctor Rosas MD Chest X-Ray 03/26/17 0600 Signed Impressions: Service Date/Time: Sunday, March 26, 2017 05:35 - CONCLUSION: Improving bilateral pulmonary infiltrates Víctor Rosas MD Chest X-Ray 03/25/17 1004 Signed Impressions: Service Date/Time: Saturday, March 25, 2017 10:03 - CONCLUSION: 1. Worsening bibasilar consolidation. 2. Endotracheal tube with tip at the thoracic inlet and should be advanced at least 3-4 cm. 3. Adequate placement of left jugular central line without pneumothorax. Logan Morgan MD Chest X-Ray 03/26/17 0600 Signed Impressions: Service Date/Time: Sunday, March 26, 2017 05:35 - CONCLUSION: Improving bilateral pulmonary infiltrates Víctor Rosas MD Lower Extremity Ultrasound 03/25/17 0000 Signed Impressions: Service Date/Time: Saturday, March 25, 2017 22:17 - CONCLUSION: No evidence of DVT. Víctor Rosas MD CT Angiography 03/21/17 0000 Signed Impressions: Service Date/Time: March 00:33 - CONCLUSION: No evidence of pulmonary embolism is identified. Mild atelectasis left lung base. Fluid or phlegm within the trachea. Milo Muhammad MD Brain MRI 03/20/17 0000 Signed Impressions: Service Date/Time: Monday, March 20, 2017 16:11 - CONCLUSION: Abnormal appearance to the ruthy with some extension into the cortical spinal tracts of the posterior thalamus was bilaterally. 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 Cheo Martínez MD Abdomen X-Ray 03/20/17 0000 Signed Impressions: Service Date/Time: Monday, March 20, 2017 18:12 - CONCLUSION: Tip of the Dobbhoff tube projecting towards the pylorus. Cheo Barrera Jr., MD Abdomen Ultrasound 03/20/17 0000 Signed Impressions: Service Date/Time: Monday, March 20, 2017 11:38 - CONCLUSION: 1. Hepatosplenomegaly without focal lesion. 2. Probable sludge within the lumen of the gallbladder. No intrahepatic duct. Cheo Martínez MD Shoulder X-Ray 03/02/17 1404 Signed Impressions: Service Date/Time: Thursday, March 02, 2017 15:18 - CONCLUSION: No evidence of recent bony injury. Deformity of the lateral left clavicle suggests old healed trauma. Cheo Martínez MD Maxillofacial CT 03/02/17 1342 Signed Impressions: Service Date/Time: Thursday, March 02, 2017 14:52 - CONCLUSION: Negative CT of the facial bones. Cheo Martínez MD Head CT 03/02/17 134 Signed Impressions: Service Date/Time: Thursday, March 02, 2017 14:52 - CONCLUSION: 1. Prominent scalp swelling left frontal and parietal region. No skull fracture seen. 2. Intracranial contents are intact without acute finding. Cheo Martínez MD Chest CT 03/02/17 1342 Signed Impressions: Service Date/Time: Thursday, March 02, 2017 15:04 - CONCLUSION: 1. Abnormal appearance of the lateral left clavicle suggesting a combination of acute and chronic bony injury. Fracture lucencies without bridging callus is seen the region of the coracoid process. 2. The lungs are clear. No evidence of pneumothorax. 3. Moderate size hiatus hernia. Cheo Martínez MD Cervical Spine CT 03/02/17 134 Signed Impressions: Service Date/Time: Thursday, March 02, 2017 14:52 - CONCLUSION: Negative CT cervical spine. Cheo Martínez MD Abdomen/Pelvis CT 03/02/17 1342 Signed Impressions: Service Date/Time: Thursday, March 02, 2017 15:04 - CONCLUSION: Moderate size hiatus hernia. Scattered small sigmoid diverticula. Otherwise negative exam. Cheo Martínez MD Chest X-Ray 03/25/17 1004 Signed Impressions: Service Date/Time: Saturday, March 25, 2017 10:03 - CONCLUSION: 1. Worsening bibasilar consolidation. 2. Endotracheal tube with tip at the thoracic inlet and should be advanced at least 3-4 cm. 3. Adequate placement of left jugular central line without pneumothorax. Logan Morgan MD Chest X-Ray 03/23/17 0000 Signed Impressions: Service Date/Time: Thursday, March 23, 2017 14:27 - CONCLUSION: 1. Feeding tube in place with what appears to be a loop in the hypopharynx. 2. Bibasilar areas of consolidation or atelectasis. Casper Vargas MD Physical Exam GENERAL: Awake, focusing, following some commands, on the vent, NAD SKIN: Warm and dry. No generalized rash. HEENT: Pupils equal round and reactive. Poor dentition. A lot of oral secretions NECK: Supple, nontender, no meningeal signs. Previous line site ok. Trach site ok CARDIOVASCULAR: Regular rate and rhythm without murmurs, gallops, or rubs. RESPIRATORY: Coarse rhonchi GASTROINTESTINAL: Abdomen mildly distended, bowel sounds are present and normoactive, no reaction to palpation. PEG site ok MUSCULOSKELETAL: Lower extremities without clubbing, cyanosis. (+) pedal edema. NEUROLOGICAL: Awake and focusing : Johns cath in place, urine looks better. Scrotum edematous LINE: PIV no evidence of infection Assessment & Plan Remarks IMPRESSION Sepsis syndrome, due to PNA - on vent - has MDR Acinetobacter, S/P RX MDR Acinetobacter PNA - S/P Rx Recurrent fevers, etiology? - low grade now - has UTI - CXR stable infiltrates, only with few WBC on G/S - no line - ?drug fever (anticonvulsants) Kleb UTI ?New VAP, has PSAE Septic shock, BP better, off pressors Known ETOH abuse Encephalopathy - sepsis, ETOH, CPM Respiratory failure - S/P trach Diarrhea, C diff negative Seizures, better - likely due to CPM - per records, had previous ETOH withdrawal SZ RECOMMENDATION Follow temps Continue cefepime - plan 14 days Monitor progress Weaning per CCM ?LTAC D/W Umm Lui MD April 19, 2017 16:05
[2017-04-19] MEDS: LORazepam 2 MG/ML VIAL IV PUSH PRN (17:41)
[2017-04-19] MEDS: ACETAMINOPHEN 325 MG TAB PO PRN (20:10)
[2017-04-19] MEDS: RESP: ALBUTEROL 2.5 MG/3 ML NEB (PRN) INH (22:16)
[2017-04-20] VITALS (26 sets, daily range): BP systolic 96–130; BP diastolic 67–85; PULSE 100–121; RESP 22–38; TEMP 99–100.5; O2SAT 94–98
[2017-04-20] MEDS: CEFEPIME INJ 2,000 MG in SODIUM CHLORIDE 0.9% INJ 100 ML IV SCH (02:17)
[2017-04-20] MEDS: INSULIN NovoLIN REGULAR SUPPLEMENTAL SCALE SQ SCH ×5 (03:13→20:00)
[2017-04-20] MEDS: MIDODRINE 5 MG TAB PO SCH ×3 (05:48→20:57)
[2017-04-20] MEDS: DEXT 5%-NACL 0.45% 1000 ML INJ 1,000 ML IV SCH ×2 (05:48→15:32)
[2017-04-20 05:54] LABS: HEMATOCRIT 25.7 % (39.0-51.0); MEAN CELL VOLUME 100.5 FL (80.0-100.0); MEAN CORPUSCULAR HEMOGLOBIN 33.7 PG (27.0-34.0); MEAN CORPUSCULAR HGB CONC 33.5 % (32.0-36.0); PLATELET COUNT 185 TH/MM3 (150-450); RED BLOOD COUNT 2.56 MIL/MM3 (4.50-5.90); RED CELL DISTRIBUTION WIDTH 15.7 % (11.6-17.2); REVIEW FLAG FINAL; WHITE BLOOD COUNT 13.1 TH/MM3 (4.0-11.0)
[2017-04-20 06:09] LABS: BICARBONATE 22.1 MEQ/L (21.0-32.0); POTASSIUM 3.5 MEQ/L (3.5-5.1)
[2017-04-20] MEDS: levETIRAcetam 1000 MG INJ 100 ML IV SCH ×2 (08:39→20:55)
[2017-04-20] MEDS: MUPIROCIN 2% OINT 1 APPLIC/GM SYR EACH NARE SCH ×2 (08:40→20:57)
[2017-04-20] MEDS: RIFAXIMIN 550 MG TAB PO SCH ×2 (08:40→20:56)
[2017-04-20] MEDS: LACTOBACILLUS ACIDOPHILUS TAB PO SCH ×3 (08:40→17:33)
[2017-04-20] MEDS: THIAMINE HCL 100 MG TAB PO SCH (08:40)
[2017-04-20] MEDS: SODIUM CHLORIDE 0.9% FLUSH 10 ML FLUSH IVF SCH (08:41)
[2017-04-20] MEDS: PANTOPRAZOLE SODIUM 40 MG VIAL IV SCH (08:41)
[2017-04-20] MEDS: LACTULOSE SYRUP 20 GM/30 ML CUP PO SCH ×2 (08:41→20:57)
[2017-04-20] MEDS: SODIUM CHLORIDE 0.9% FLUSH 10 ML FLUSH IV FLUSH SCH ×2 (08:41→20:57)
--- NOTE | 2017-04-20 08:42 | HHI.IDPN ---
Subjective Subjective Remarks Notes reviewed D/W RN Low grade temps, intermittent Did 5 hours CPAP today S/P trach Awake and following some commands No further seizures Antibiotics Cefepime Lines PIV Past Medical History ETOHism Allergies: Coded Allergies: PEANUTS (Unverified Allergy, Severe, 03/02/17) *MDRO Multi-Drug Resistant Organism (Verified Adverse Reaction, Unknown, ) MRSA PCR screen POSITIVE - 03/02/17 MDR Acinetobacter (sputum) - 03/25/17 Objective . Vital Signs Date Time Temp Pulse Resp B/P Pulse Ox O2 Delivery O2 Flow Rate FiO2 04/20/17 07:34 98 35 04/20/17 06:00 107 04/20/17 05:10 98 35 04/20/17 04:00 99.0 105 26 114/77 97 04/20/17 04:00 105 04/20/17 04:00 35 04/20/17 02:00 100 04/20/17 01:40 97 35 04/20/17 00:00 35 04/20/17 00:00 99.9 102 23 96/67 94 04/20/17 00:00 102 04/19/17 22:49 20 04/19/17 22:16 95 35 04/19/17 22:00 35 04/19/17 22:00 98 04/19/17 21:10 95 35 04/19/17 20:00 109 04/19/17 20:00 100.9 109 22 103/69 96 04/19/17 18:00 79 04/19/17 18:00 35 04/19/17 16:00 35 04/19/17 16:00 79 04/19/17 16:00 98.4 109 24 96/67 95 04/19/17 15:06 98 35 04/19/17 14:00 79 04/19/17 12:00 79 04/19/17 12:00 35 04/19/17 12:00 99.2 108 32 112/65 95 04/19/17 11:29 96 35 04/19/17 11:15 106 36 96 04/19/17 11:15 106 36 96 04/19/17 11:00 109 34 111/74 96 04/19/17 11:00 109 34 111/74 96 04/19/17 10:00 79 504/19/17 04/20/17 15:00 23:00 07:00 Intake Total 1001 ml 1149 ml 1003 ml Output Total 750 ml 700 ml 350 ml Balance 251 ml 449 ml 653 ml IV Total 586 ml 678 ml 593 ml Tube Feeding 415 ml 441 ml 380 ml Other 30 ml 30 ml Output Urine Total 350 ml 450 ml 250 ml Stool Total 400 ml 250 ml 100 ml . Laboratory Tests Test 04/19/17 04/20/17 05:19 05:28 White Blood Count 11.2 TH/MM3 13.1 TH/MM3 Red Blood Count 2.76 MIL/MM3 2.56 MIL/MM3 Hemoglobin 9.2 GM/DL 8.6 GM/DL Hematocrit 28.3 % 25.7 % Mean Corpuscular Volume 102.4 FL 100.5 FL Mean Corpuscular Hemoglobin 33.4 PG 33.7 PG Mean Corpuscular Hemoglobin 32.7 % 33.5 % Concent Red Cell Distribution Width 16.2 % 15.7 % Platelet Count 181 TH/MM3 185 TH/MM3 Mean Platelet Volume 9.3 FL 8.9 FL Neutrophils (%) (Auto) 80.0 % Lymphocytes (%) (Auto) 11.1 % Monocytes (%) (Auto) 6.1 % Eosinophils (%) (Auto) 2.0 % Basophils (%) (Auto) 0.8 % Neutrophils # (Auto) 8.9 TH/MM3 Lymphocytes # (Auto) 1.2 TH/MM3 Monocytes # (Auto) 0.7 TH/MM3 Eosinophils # (Auto) 0.2 TH/MM3 Basophils # (Auto) 0.1 TH/MM3 CBC Comment DIFF FINAL Differential Comment Laboratory Tests Test 04/19/17 04/20/17 05:15 05:28 Sodium Level 141 MEQ/L 139 MEQ/L Potassium Level 3.6 MEQ/L 3.5 MEQ/L Chloride Level 108 MEQ/L 107 MEQ/L Carbon Dioxide Level 24.5 MEQ/L 22.1 MEQ/L Anion Gap 9 MEQ/L 10 MEQ/L Blood Urea Nitrogen 15 MG/DL 16 MG/DL Creatinine 0.43 MG/DL 0.39 MG/DL Estimat Glomerular Filtration 203 ML/MIN 227 ML/MIN Rate Random Glucose 131 MG/DL 153 MG/DL Calcium Level 7.7 MG/DL 7.7 MG/DL Total Bilirubin 1.1 MG/DL Aspartate Amino Transf 168 U/L (AST/SGOT) Alanine Aminotransferase 98 U/L (ALT/SGPT) Alkaline Phosphatase 480 U/L Total Protein 5.8 GM/DL Albumin 1.5 GM/DL Imaging Chest X-Ray 04/19/17 0600 Signed Impressions: Service Date/Time: Wednesday, April 19, 2017 04:24 - CONCLUSION: 1. Stable basilar airspace disease. Tracheostomy unchanged. Miguel Looney MD Liver Ultrasound 04/15/17 0000 Signed Impressions: Service Date/Time: Saturday, April 15, 2017 09:24 - CONCLUSION: 1. Abnormal appearance of the pancreas with a nonspecific hypoechoic area involving the posterior part of the pancreas along the head and body region. Recommend CT scan of the abdomen with oral and IV contrast further evaluation. 2. Fatty infiltration throughout the liver. 3. There is thickening of the gallbladder wall at 6 mm. This is suggestive of chronic gallbladder disease. 4. Small amount of free fluid adjacent to the liver and spleen in the upper abdomen.. 5. Right-sided pleural effusion. Víctor Rosas MD Chest X-Ray 04/13/17 06 Signed Impressions: Service Date/Time: Thursday, April 13, 2017 03:50 - CONCLUSION: Stable bilateral scattered pulmonary infiltrates. Víctor Rosas MD Abdomen X-Ray 04/13/17 Signed Impressions: Service Date/Time: Thursday, April 13, 2017 10:36 - CONCLUSION: Dobbhoff tip in distal stomach. No evidence of obstruction. Logan Morgan MD Head CT 04/12/17 Signed Impressions: Service Date/Time: Wednesday, April 12, 2017 21:30 - CONCLUSION: Pontine encephalomalacia. Left mastoiditis. Casper Alva MD Head Magnetic Resonance Angiography 03/28/17 0000 Signed Impressions: Service Date/Time: March 17:22 - CONCLUSION: Unremarkable examination. Bety Castillo MD Brain MRI 03/28/17 0000 Signed Impressions: Service Date/Time: March 17:22 - CONCLUSION: 1. 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 Small subacute ischemic bilateral thalamic infarcts. 2. There has been no significant change when compared to the prior exam. Yinka Harman MD Lower Extremity Ultrasound 03/25/17 0000 Signed Impressions: Service Date/Time: Saturday, March 25, 2017 22:17 - CONCLUSION: No evidence of DVT. Víctor Rosas MD CT Angiography 03/21/17 0000 Signed Impressions: Service Date/Time: March 00:33 - CONCLUSION: No evidence of pulmonary embolism is identified. Mild atelectasis left lung base. Fluid or phlegm within the trachea. Milo Muhammad MD Abdomen Ultrasound 03/20/17 0000 Signed Impressions: Service Date/Time: Monday, March 20, 2017 11:38 - CONCLUSION: 1. Hepatosplenomegaly without focal lesion. 2. Probable sludge within the lumen of the gallbladder. No intrahepatic duct. Cheo Martínez MD Shoulder X-Ray 03/02/17 1404 Signed Impressions: Service Date/Time: Thursday, March 02, 2017 15:18 - CONCLUSION: No evidence of recent bony injury. Deformity of the lateral left clavicle suggests old healed trauma. Cheo Martínez MD Maxillofacial CT 03/02/17 1342 Signed Impressions: Service Date/Time: Thursday, March 02, 2017 14:52 - CONCLUSION: Negative CT of the facial bones. Cheo Martínez MD Chest CT 03/02/17 1342 Signed Impressions: Service Date/Time: Thursday, March 02, 2017 15:04 - CONCLUSION: 1. Abnormal appearance of the lateral left clavicle suggesting a combination of acute and chronic bony injury. Fracture lucencies without bridging callus is seen the region of the coracoid process. 2. The lungs are clear. No evidence of pneumothorax. 3. Moderate size hiatus hernia. Cheo Martínez MD Cervical Spine CT 03/02/17 1342 Signed Impressions: Service Date/Time: Thursday, March 02, 2017 14:52 - CONCLUSION: Negative CT cervical spine. Cheo Martínez MD Abdomen/Pelvis CT 03/02/17 1342 Signed Impressions: Service Date/Time: Thursday, March 02, 2017 15:04 - CONCLUSION: Moderate size hiatus hernia. Scattered small sigmoid diverticula. Otherwise negative exam. Cheo Martínez MD Chest X-Ray 04/08/17 0600 Signed Impressions: Service Date/Time: Saturday, April 08, 2017 05:10 - CONCLUSION: 1. Endotracheal tube and weighted feeding tube. 2. Bilateral pulmonary infiltrates. Some improvement from the prior study. Cheo Barrera Jr., MD Chest X-Ray 03/27/17 0600 Signed Impressions: Service Date/Time: Monday, March 27, 2017 02:33 - CONCLUSION: No significant interval change. Víctor Rosas MD Chest X-Ray 03/26/17 0600 Signed Impressions: Service Date/Time: Sunday, March 26, 2017 05:35 - CONCLUSION: Improving bilateral pulmonary infiltrates Víctor Rosas MD Chest X-Ray 03/25/17 1004 Signed Impressions: Service Date/Time: Saturday, March 25, 2017 10:03 - CONCLUSION: 1. Worsening bibasilar consolidation. 2. Endotracheal tube with tip at the thoracic inlet and should be advanced at least 3-4 cm. 3. Adequate placement of left jugular central line without pneumothorax. Logan Morgan MD Chest X-Ray 03/26/17 0600 Signed Impressions: Service Date/Time: Sunday, March 26, 2017 05:35 - CONCLUSION: Improving bilateral pulmonary infiltrates Víctor Rosas MD Lower Extremity Ultrasound 03/25/17 0000 Signed Impressions: Service Date/Time: Saturday, March 25, 2017 22:17 - CONCLUSION: No evidence of DVT. Víctor Rosas MD CT Angiography 03/21/17 0000 Signed Impressions: Service Date/Time: March 00:33 - CONCLUSION: No evidence of pulmonary embolism is identified. Mild atelectasis left lung base. Fluid or phlegm within the trachea. Milo Muhammad MD Brain MRI 03/20/17 0000 Signed Impressions: Service Date/Time: Monday, March 20, 2017 16:11 - CONCLUSION: Abnormal appearance to the ruthy with some extension into the cortical spinal tracts of the posterior thalamus was bilaterally. 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 Cheo Martínez MD Abdomen X-Ray 03/20/17 0000 Signed Impressions: Service Date/Time: Monday, March 20, 2017 18:12 - CONCLUSION: Tip of the Dobbhoff tube projecting towards the pylorus. Cheo Barrera Jr., MD Abdomen Ultrasound 03/20/17 0000 Signed Impressions: Service Date/Time: Monday, March 20, 2017 11:38 - CONCLUSION: 1. Hepatosplenomegaly without focal lesion. 2. Probable sludge within the lumen of the gallbladder. No intrahepatic duct. Cheo Martínez MD Shoulder X-Ray 03/02/17 1404 Signed Impressions: Service Date/Time: Thursday, March 02, 2017 15:18 - CONCLUSION: No evidence of recent bony injury. Deformity of the lateral left clavicle suggests old healed trauma. Cheo Martínez MD Maxillofacial CT 03/02/17 1342 Signed Impressions: Service Date/Time: Thursday, March 02, 2017 14:52 - CONCLUSION: Negative CT of the facial bones. Cheo Martínez MD Head CT 03/02/17 1342 Signed Impressions: Service Date/Time: Thursday, March 02, 2017 14:52 - CONCLUSION: 1. Prominent scalp swelling left frontal and parietal region. No skull fracture seen. 2. Intracranial contents are intact without acute finding. Cheo Martínez MD Chest CT 03/02/17 1342 Signed Impressions: Service Date/Time: Thursday, March 02, 2017 15:04 - CONCLUSION: 1. Abnormal appearance of the lateral left clavicle suggesting a combination of acute and chronic bony injury. Fracture lucencies without bridging callus is seen the region of the coracoid process. 2. The lungs are clear. No evidence of pneumothorax. 3. Moderate size hiatus hernia. Cheo Martínez MD Cervical Spine CT 03/02/17 1342 Signed Impressions: Service Date/Time: Thursday, March 02, 2017 14:52 - CONCLUSION: Negative CT cervical spine. Cheo Martínez MD Abdomen/Pelvis CT 03/02/17 1342 Signed Impressions: Service Date/Time: Thursday, March 02, 2017 15:04 - CONCLUSION: Moderate size hiatus hernia. Scattered small sigmoid diverticula. Otherwise negative exam. hCeo Martínez MD Chest X-Ray 03/25/17 1004 Signed Impressions: Service Date/Time: Saturday, March 25, 2017 10:03 - CONCLUSION: 1. Worsening bibasilar consolidation. 2. Endotracheal tube with tip at the thoracic inlet and should be advanced at least 3-4 cm. 3. Adequate placement of left jugular central line without pneumothorax. Logan Morgan MD Chest X-Ray 03/23/17 0000 Signed Impressions: Service Date/Time: Thursday, March 23, 2017 14:27 - CONCLUSION: 1. Feeding tube in place with what appears to be a loop in the hypopharynx. 2. Bibasilar areas of consolidation or atelectasis. Casper Vargas MD Physical Exam GENERAL: Awake, focusing, following some commands, on the vent, NAD SKIN: Warm and dry. No generalized rash. HEENT: Pupils equal round and reactive. Poor dentition. A lot of oral secretions NECK: Supple, nontender, no meningeal signs. Previous line site ok. Trach site ok CARDIOVASCULAR: Regular rate and rhythm without murmurs, gallops, or rubs. RESPIRATORY: Scattered rhonchi GASTROINTESTINAL: Abdomen mildly distended, bowel sounds are present and normoactive, no reaction to palpation. PEG site ok MUSCULOSKELETAL: Lower extremities without clubbing, cyanosis. (+) pedal edema. NEUROLOGICAL: Awake and focusing : Johns cath in place, urine looks better. Scrotum edematous LINE: PIV no evidence of infection Assessment & Plan Remarks IMPRESSION Sepsis syndrome, due to PNA - on vent - has MDR Acinetobacter, S/P RX MDR Acinetobacter PNA - S/P Rx Recurrent fevers, etiology? - low grade now - has UTI - CXR stable infiltrates, only with few WBC on G/S - no line - ?drug fever (anticonvulsants) Kleb UTI ?New VAP, has PSAE Septic shock, BP better, off pressors Known ETOH abuse Encephalopathy - sepsis, ETOH, CPM Respiratory failure - S/P trach Diarrhea, C diff negative Seizures, controlled - ?due to CPM - per records had ETOH withdrawal SZ RECOMMENDATION Follow temps Monitor progress Weaning per CCM ?LTAC On Cefepime, will switch to Levaquin - plan to complete RX 04/30 D/W Umm Lui MD April 20, 2017 08:42
[2017-04-20] MEDS: NYSTATIN 100,000 U/GM PWD 15 GM BTL TOPICAL SCH ×2 (08:43→20:59)
[2017-04-20] MEDS: ARTIFICIAL TEARS OPTH SOLN 15 ML BTL EACH EYE SCH ×3 (08:43→17:33)
[2017-04-20] MEDS: CHLORHEXIDINE 0.12% (ORAL KIT) 15 ML CUP MT SCH ×2 (08:44→20:00)
[2017-04-20] MEDS: LEVOFLOXACIN 750 MG TAB PO SCH (11:09)
--- NOTE | 2017-04-20 12:49 | HHI.CCPN ---
Subjective Remarks/Hospital Course This is a 61-year-old male with a past history of alcohol abuse and a prior admission in 2015 for severe life-threatening hyponatremia at that time with a serum sodium of 98. He presents today with what he states is a 13 day history of worsening fatigue and weakness. He is very altered and is very difficult to understand the patient. What I can understand from him, is that at some point during these 13 days he has fallen and hit his face. Otherwise he states he lays on the couch, and has not gotten not much. He states he drinks 1 beer in the morning, and 1 beer in the afternoon. He does endorse taking some Xanax to help him sleep. He denies other drug use. He denies chest pain, shortness of breath, fever, chills, nausea, vomiting, abdominal pain. It is very difficult to get him to answer anymore questions about his medical history. His speech is very slurred and he is trying to talk about how he misses his daughter. Emergency department he was found to have a serum sodium of 99, a bilirubin of 8.9, lactate of 9.8, ammonia of 60, CK of 7000, elevated troponin of 4.9 with a normal MB ratio, creatinine 1.5, serum bicarbonate of 13. His white count is 12 , platelets 112. INR 1.9. His MELD calculates at 26. 4/2: Sodium level rapidly corrected overnight, likely secondary to appropriate correction of severe life-threatening dehydration. NS fluids changed to 1/2NS and correction slowed down significantly. sodium up to 130 this AM. CK downtrending. however, patient remains severely hypotensive requiring Levophed to maintain a map > 65 mmHg. This AM, serum K 1.6 (confirmed). started replacement with 200meq KCl and recheck K. 03/04: persists in vasoplegic distributive shock. afebrile. no evidence of infection. wbc downtrending. persists with severe life-threatening electrolyte derangements. passed swallow eval for nectar thick liquids. sodium stable at 131. ck downtrending. 03/05: persists in distributive shock. echo yesterday with EF 30%, globally decreased function. milrinone added yesterday with improvement in vasopressor requirement. still with multiple electrolyte abnormalities despite very aggressive replacement. very poor appetite. sodium stable at 131, which appears to be around baseline for him, looking back at prior records. also became agitated and delirious yesterday, likely secondary to etoh withdraw. started on Ativan and Librium. 03/06: electrolyte derangements persist. placed on continuous NaPhos infusion x 24h due to severe life-threatening hypophosphatemia. serial K, phos checks. weaning off levophed, milrinone persists. still poor appetite. sodium jumped from 132 to 139, but no significant mental status change, and we did not increase sodium load. 03/07: still requiring high electrolyte replacement. milrinone weaned to 0.375 mcg /kg/min overnight. still doing well with that. delirium persists. 03/08 Remains on milrinone. Electrolyte improving. Remains very lethargic, intermittently follows commands 03/09: Continues to be lethargic but wakes up follows some commands. Remains on milrinone will DC today. T max 100.1, urine output adequate sodium is 143 03/10: More awake alert, ate 50% of break fast. Will DC Dobhoff. Discontinue arterial and central lines. Delirium also improved, remains weak 03/11: doing much better this morning. no complaints. still with poor appetite. electrolytes improved. 03/20: We consulted for respiratory failure. Patient was last seen in room 1415 CMP receiving oral cares and became acutely hypoxic saturations 82% with coarse breath sounds. Halicat called. Patient was placed on a Venturi mask 50 % with desaturations to the mid 90s. He received Solu-Medrol 20 mg IV 1, Lasix 40 mg IV 1 and was transferred IM [facility]. Hemodynamically stable. Poor mentation 03/25: Reconsulted due to respiratory failure. Patient with gurgling/ transmitted upper airway sounds. Respiration the 50s. Decision made to orotracheally intubate. Noted to have been febrile with increased O2 course over the past 48 hours. 03/26: Afebrile. Requiring Nimbex drip for ventilator synchrony. Decreased urine output noted. Hemoglobin decreased likely dilutional. Tolerating tube feeding. Electrolytes been replaced. 03/27: Tmax 100.9. Currently 97.2. +6 L past 24 hours. Hemoglobin 8 transfuse overnight. Potassium 3. We'll discontinue Nimbex drip for vent synchrony today. 03/28: Afebrile. Negative fluid balance past 24 hours. Hemoglobin currently 9. Potassium 3.0. Currently on sedation vacation positive gag and otherwise unresponsive. 03/29: Tmax 103. Currently afebrile. Not tolerating tube feeds. Remains on Kiran-Synephrine. Did not tolerate sedation vacation back on Versed at 5 mg an hour fentanyl drip at 100 mcg an hour. One bowel movement. 03/30 Tube feeds remain on hold. On neosynephrine 40 mcg/min, RN states she has been weaning. Having BMs. On Versed 8 mg/hr and fentanyl 100 mcg/hr. 03/31 Off versed. Remains on fentanyl 100 mcg/hr. Having hiccups. Still on neosynephrine 40 mcg/min. Tolerating trickle feeds. Had 2 bowel movements 04/01: no meaningful change. still requires fentanyl for sedation. still on low- dose vasopressors. 04/02: no changes. still on levo @ 7 mcg/min. unable to wean off fentanyl due to tachycardia and tachypnea. 04/03: Off all sedation. On low-dose norepinephrine. Essentially unresponsive on the ventilator. Plan for likely withdrawal of care tomorrow 04/04: Off all sedation. Off all vasopressors. According to overnight RN was following commands. Will open eyes but not following commands this AM. 04/05 No events overnight. Afebrile On no sedation. 04/06: Resting comfortably in bed. Eyes are open. Moving head back and forth continuously. Weakly following commands with his upper and lower extremities. 04/07: Low-grade temperatures overnight. 99.8. Eyes are open. Moving back and forth. Positive BM. Continues to be following commands. 04/08 Patient remains intubated on no sedation awake and follows commands. Tmax 100.8 04/09 Patient remains intubated, tolerated CPAP all day and had good responses in UO with Bumex yesterday. Afebrile. 04/10: Tmax 99.1. Went back on set rate ventilation yesterday. Will attempt PSV trials throughout the day with goal to attempt extubation tomorrow. 04/11: Tmax 100.2. Currently 100.1. Did not tolerate weaning parameters with NIF -9 and unacceptable RSBI. Patient is arousable and follows commands eyes open 04/12: Omayra care reports tonic-clonic seizure activity this AM. Heart rate in the 140s during episode with violent shaking. On examination, patient's eyes are open and at baseline except currently not following commands. 04/13: had 2 seizures this morning, both resolved without medication interventions. Dr. Fabrizio navas'd at bedside earlier and ordered Cerebyx load. no other changes. plan for trach/peg next week Subjective: 04/14: still having breakthrough seizures on repeat EEG despite Cerebyx and Keppra. plan for PEG tomorrow. 04/15 No events overnight. Remains intubated. On no sedation. For PEG tube placement today. T:101.2 last night. 04/16 Patient remains intubated. For trach this afternoon. s/p PEG tube placement yesterday. Spiked fever with T:102.5 last night. 04/17 Patient s/p trach yesterday. T: 100.3 at midnight. 04/18 Continues to have low-grade fever. No change in mental status. Sputum Pseudomonas pansensitive. No seizures reported in the last 24 hours 04/19: No fever reported. Slightly more awake and was commands on right upper extremity by squeezing hands very weakly. On CPAP 15/04. Slightly tachypneic 04/20: WBC count slightly elevated today, tachypnea on CPAP. Continues to follow commands weakly on right hand. Intermittently about to wiggle toes. Slight increase in white count to 13,000. Tmax 100.9 ID following Objective Vital Signs Date Time Temp Pulse Resp B/P Pulse Ox O2 Delivery O2 Flow Rate FiO2 04/20/17 10:26 95 35 04/20/17 10:00 110 04/20/17 08:00 99.1 25 118/80 Intake and Output 04/19/17 04/19/17 04/20/17 08:00 16:00 00:00 Intake Total 788 ml 1001 ml 1149 ml Output Total 350 ml 750 ml 700 ml Balance 438 ml 251 ml 449 ml Result Diagram: 04/20/17 0528 04/20/17 0528 Imaging Last Impressions Chest X-Ray 04/16/17 0000 Signed Impressions: Service Date/Time: Sunday, April 16, 2017 13:49 - CONCLUSION: 1. Bilateral pulmonary opacities. 2. Adequate placement of tracheostomy tube. Logan Morgan MD Abdomen/Pelvis CT 04/16/17 0000 Signed Impressions: Service Date/Time: Sunday, April 16, 2017 11:26 - CONCLUSION: 1. Cirrhosis and splenomegaly. 2. Ascites 3. Anasarca 4. No pancreas mass identified Yinka Harman MD Liver Ultrasound 04/15/17 0000 Signed Impressions: Service Date/Time: Saturday, April 15, 2017 09:24 - CONCLUSION: 1. Abnormal appearance of the pancreas with a nonspecific hypoechoic area involving the posterior part of the pancreas along the head and body region. Recommend CT scan of the abdomen with oral and IV contrast further evaluation. 2. Fatty infiltration throughout the liver. 3. There is thickening of the gallbladder wall at 6 mm. This is suggestive of chronic gallbladder disease. 4. Small amount of free fluid adjacent to the liver and spleen in the upper abdomen.. 5. Right-sided pleural effusion. Víctor Rosas MD Abdomen X-Ray 04/13/17 0000 Signed Impressions: Service Date/Time: Thursday, April 13, 2017 10:36 - CONCLUSION: Dobbhoff tip in distal stomach. No evidence of obstruction. Logan Morgan MD Head CT 04/12/17 0000 Signed Impressions: Service Date/Time: Wednesday, April 12, 2017 21:30 - CONCLUSION: Pontine encephalomalacia. Left mastoiditis. Casper Alva MD Head Magnetic Resonance Angiography 03/28/17 0000 Signed Impressions: Service Date/Time: March 17:22 - CONCLUSION: Unremarkable examination. Bety Castillo MD Brain MRI 03/28/17 0000 Signed Impressions: Service Date/Time: March 17:22 - CONCLUSION: 1. 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 Small subacute ischemic bilateral thalamic infarcts. 2. There has been no significant change when compared to the prior exam. Yinka Harman MD Lower Extremity Ultrasound 03/25/17 0000 Signed Impressions: Service Date/Time: Saturday, March 25, 2017 22:17 - CONCLUSION: No evidence of DVT. Víctor Rosas MD CT Angiography 03/21/17 0000 Signed Impressions: Service Date/Time: March 00:33 - CONCLUSION: No evidence of pulmonary embolism is identified. Mild atelectasis left lung base. Fluid or phlegm within the trachea. Milo Muhammad MD Abdomen Ultrasound 03/20/17 0000 Signed Impressions: Service Date/Time: Monday, March 20, 2017 11:38 - CONCLUSION: 1. Hepatosplenomegaly without focal lesion. 2. Probable sludge within the lumen of the gallbladder. No intrahepatic duct. Cheo Martínez MD Shoulder X-Ray 03/02/17 1404 Signed Impressions: Service Date/Time: Thursday, March 02, 2017 15:18 - CONCLUSION: No evidence of recent bony injury. Deformity of the lateral left clavicle suggests old healed trauma. Cheo Martínez MD Maxillofacial CT 03/02/17 1342 Signed Impressions: Service Date/Time: Thursday, March 02, 2017 14:52 - CONCLUSION: Negative CT of the facial bones. Cheo Martínez MD Chest CT 03/02/17 1342 Signed Impressions: Service Date/Time: Thursday, March 02, 2017 15:04 - CONCLUSION: 1. Abnormal appearance of the lateral left clavicle suggesting a combination of acute and chronic bony injury. Fracture lucencies without bridging callus is seen the region of the coracoid process. 2. The lungs are clear. No evidence of pneumothorax. 3. Moderate size hiatus hernia. Cheo Martínez MD Cervical Spine CT 03/02/17 1342 Signed Impressions: Service Date/Time: Thursday, March 02, 2017 14:52 - CONCLUSION: Negative CT cervical spine. Cheo Martínez MD Objective Remarks GENERAL: 61-year-old chronically ill appearing male, critically ill. HEENT: Healing abrasion left side scalp. TIMOTHY. Scleral icterus. Poor dentition. NECK: Trachea Midline, Trach without bleed RESP: Coarse breath sounds bilaterally. Few wheezes. Tachypneic on CPAP CARDIOVASCULAR: Tachycardia, RR. ABDOMEN: Slightly distended but soft, bowel sounds present, tolerating tube feeds. : Johns in place with conrad urine output. mild/moderate scrotal edema. MUSCULOSKELETAL: No obvious deformity. 1+ edema all extremities NEUROLOGICAL: + gag and cough. Opens eyes. Slightly more awake and following commands on right upper extremity by squeezing hands very weakly. Intermittently wiggles toes weakly A/P Assessment and Plan Neuro/Psych: Osmotic demyelination syndrome Acute toxic metabolic encephalopathy secondary to hypercarbic respiratory failure Alcohol dependence Seizures (History of EtOH induced seizure withdrawal) Chronic benzodiazepine use Bilateral thalamic CVA Off all sedation. oxycodone 5 mg every 4 hours as needed for pain. Ativan 0.5 mg PRN for sz MRI 03/21 - T1/T2 prolonged with sparing of this central appears final fibers. 2 small spots in the posterior central spinal tract consistent with Osmotic demyelination syndrome. ODS most likely from rapid correction of Na, with underlying alcoholism. But patient was profoundly hypotensive in shock requiring multiple pressors at that time MRI brain 03/28 revealed subacute bilateral thalamic lacunar infarcts, ODS. CT head 03/05 revealed no acute intracranial findings Continue thiamine Seen by neurology/Dr. Mazariegos. EEG with persistent seizures. continue Keppra 1000mg BID Respiratory: Acute hypoxemic hypercapnic respiratory failure PRVC 18/550/1.2/. Continue with vent support keep sat >92% Ventilator bundle, s/p trach 04/16 Bronchodilator therapy every 4 hours and as needed SBT daily as pablo. Pulm toilet, trach care. TP for 2-4 hours (Unable to place on TP yet due to tachypnea Cardiovascular: Chronic Systolic heart failure Echocardiogram 03/04 revealed EF 35-40%. Mild MR. Left atrium dilated. JANE 33 mmHg s/p hydrocortisone. Continue midodrine 10 mg 3 times Monitor HR and BP keep MAP>65mmHg Renal/FEN: Acute Kidney Injury- Rhabdomyolysis- resolved ODS-see neuro Hypernatremia Monitor renal function, I/O's, electrolytes replacement per protocol. On D51/2NS@75ml/hr. DCd GI: EtOH cirrhosis Hyperammonemia Hiatal hernia Sigmoid diverticulosis History of umbilical hernia repair Hypoalbuminemia Continue tube feeds via PEG tube-(Jevity 1.5 with goal rate 60ml/hr) s/p PEG tube placement 04/15 CT abdomen/pelvis 04/16: Cirrhosis of liver, splenomegaly, anasarca, ascites(mild ) On Xifaxan 550 twice a day/lactulose 30 twice a day. US Liver 04/15: Abnormal appearance of the pancreas with a nonspecific hypoechoic area involving the posterior part of the pancreas along the head and body region. Fatty infiltration throughout the liver. There is thickening of the gallbladder wall at 6 mm. Suggestive of chronic gallbladder disease. Small amount of free fluid adjacent to the liver and spleen in the upper abdomen. Right-sided pleural effusion. 03/20 Ultrasound liver-hepatosplenomegaly. Sludge in gallbladder On IV Protonix Heme: Leukocytosis Macrocytic anemia Monitor CBC. No indications for transfusion of blood proximally postop B12 1452, Folate 15.2. TSH 0.8. ID: Aspiration pneumonia, PSAE in sputum Escherichia coli UTI 03/11 - completed therapy Acinetobacter pneumonia Pertinent cultures 04/15 Sputum cx: PSAE 04/15 urine cx: Klebsiella 04/15 BC: NGTD 04/12 BC: NGTD 04/08 - blood cultures 2 - no growth 04/08 - sputum - no growth 04/05 - urine -C GLABRATA AND C. ALBICANS 03/29 - blood cultures 2 - NGTD 03/25 - sputum --Acinetobacter. 03/25 - urine - NGTD 03/25 - blood cultures 2 -no growth 03/22 - urine - no growth 03/22 - blood cultures 2 - negative 03/20 - blood cultures 2 - no growth 03/11 - urine - Escherichia coli 03/02 - blood cultures 2 - no growth Followed by Dr. Lisa/ID. Changed Zosyn to cefepime 04/17 Off Flagyl po 03/24 Procalcitonin level: 0.40, C-diff PCR negative 04/10 Endocrine: Hyperglycemia of critical illness History of hypothyroidism SSI with Accu-Cheks every 4 hours to maintain euglycemia MSK: History of old left clavicle fracture PT/OT evaluate and treat Access Peripheral IV. Prophylaxis: GI - Protonix DVT - SCD/heparin subcutaneous Palliative care is following code status changed to full code per daughter's request. Tamanna Sandhu, daughter/ HCP: from [facility] [phone] now confirmed transferred to [facility] in [place] facility ) Code status -full code Level 3 Jeyson Shirley MD April 20, 2017 12:49
[2017-04-21] VITALS (21 sets, daily range): BP systolic 104–116; BP diastolic 66–76; PULSE 91–102; RESP 18–38; TEMP 98.7–99.7; O2SAT 96–97
[2017-04-21] MEDS: INSULIN NovoLIN REGULAR SUPPLEMENTAL SCALE SQ SCH ×7 (04:00→23:46)
[2017-04-21] MEDS: MIDODRINE 5 MG TAB PO SCH ×3 (05:59→21:26)
[2017-04-21] MEDS: CHLORHEXIDINE 0.12% (ORAL KIT) 15 ML CUP MT SCH ×2 (08:28→20:00)
[2017-04-21] MEDS: SODIUM CHLORIDE 0.9% FLUSH 10 ML FLUSH IVF SCH (09:00)
[2017-04-21] MEDS: ARTIFICIAL TEARS OPTH SOLN 15 ML BTL EACH EYE SCH ×3 (10:14→17:47)
[2017-04-21] MEDS: MUPIROCIN 2% OINT 1 APPLIC/GM SYR EACH NARE SCH ×2 (10:15→21:26)
[2017-04-21] MEDS: LACTULOSE SYRUP 20 GM/30 ML CUP PO SCH ×2 (10:16→21:26)
[2017-04-21] MEDS: RIFAXIMIN 550 MG TAB PO SCH ×2 (10:16→21:26)
[2017-04-21] MEDS: DEXT 5%-NACL 0.45% 1000 ML INJ 1,000 ML IV SCH (10:16)
[2017-04-21] MEDS: THIAMINE HCL 100 MG TAB PO SCH (10:16)
[2017-04-21] MEDS: NYSTATIN 100,000 U/GM PWD 15 GM BTL TOPICAL SCH ×2 (10:16→21:27)
[2017-04-21] MEDS: PANTOPRAZOLE SODIUM 40 MG VIAL IV SCH (10:17)
[2017-04-21] MEDS: LEVOFLOXACIN 750 MG TAB PO SCH (10:17)
[2017-04-21] MEDS: LACTOBACILLUS ACIDOPHILUS TAB PO SCH ×3 (10:18→17:47)
[2017-04-21] MEDS: SODIUM CHLORIDE 0.9% FLUSH 10 ML FLUSH IV FLUSH SCH ×2 (10:20→21:00)
[2017-04-21] MEDS: levETIRAcetam 1000 MG INJ 100 ML IV SCH ×2 (10:21→21:26)
--- NOTE | 2017-04-21 10:37 | HHI.CCPN ---
Subjective Remarks/Hospital Course This is a 61-year-old male with a past history of alcohol abuse and a prior admission in 2015 for severe life-threatening hyponatremia at that time with a serum sodium of 98. He presents today with what he states is a 13 day history of worsening fatigue and weakness. He is very altered and is very difficult to understand the patient. What I can understand from him, is that at some point during these 13 days he has fallen and hit his face. Otherwise he states he lays on the couch, and has not gotten not much. He states he drinks 1 beer in the morning, and 1 beer in the afternoon. He does endorse taking some Xanax to help him sleep. He denies other drug use. He denies chest pain, shortness of breath, fever, chills, nausea, vomiting, abdominal pain. It is very difficult to get him to answer anymore questions about his medical history. His speech is very slurred and he is trying to talk about how he misses his daughter. Emergency department he was found to have a serum sodium of 99, a bilirubin of 8.9, lactate of 9.8, ammonia of 60, CK of 7000, elevated troponin of 4.9 with a normal MB ratio, creatinine 1.5, serum bicarbonate of 13. His white count is 12 , platelets 112. INR 1.9. His MELD calculates at 26. 4/2: Sodium level rapidly corrected overnight, likely secondary to appropriate correction of severe life-threatening dehydration. NS fluids changed to 1/2NS and correction slowed down significantly. sodium up to 130 this AM. CK downtrending. however, patient remains severely hypotensive requiring Levophed to maintain a map > 65 mmHg. This AM, serum K 1.6 (confirmed). started replacement with 200meq KCl and recheck K. 03/04: persists in vasoplegic distributive shock. afebrile. no evidence of infection. wbc downtrending. persists with severe life-threatening electrolyte derangements. passed swallow eval for nectar thick liquids. sodium stable at 131. ck downtrending. 03/05: persists in distributive shock. echo yesterday with EF 30%, globally decreased function. milrinone added yesterday with improvement in vasopressor requirement. still with multiple electrolyte abnormalities despite very aggressive replacement. very poor appetite. sodium stable at 131, which appears to be around baseline for him, looking back at prior records. also became agitated and delirious yesterday, likely secondary to etoh withdraw. started on Ativan and Librium. 03/06: electrolyte derangements persist. placed on continuous NaPhos infusion x 24h due to severe life-threatening hypophosphatemia. serial K, phos checks. weaning off levophed, milrinone persists. still poor appetite. sodium jumped from 132 to 139, but no significant mental status change, and we did not increase sodium load. 03/07: still requiring high electrolyte replacement. milrinone weaned to 0.375 mcg /kg/min overnight. still doing well with that. delirium persists. 03/08 Remains on milrinone. Electrolyte improving. Remains very lethargic, intermittently follows commands 03/09: Continues to be lethargic but wakes up follows some commands. Remains on milrinone will DC today. T max 100.1, urine output adequate sodium is 143 03/10: More awake alert, ate 50% of break fast. Will DC Dobhoff. Discontinue arterial and central lines. Delirium also improved, remains weak 03/11: doing much better this morning. no complaints. still with poor appetite. electrolytes improved. 03/20: We consulted for respiratory failure. Patient was last seen in room 1415 CMP receiving oral cares and became acutely hypoxic saturations 82% with coarse breath sounds. Halicat called. Patient was placed on a Venturi mask 50 % with desaturations to the mid 90s. He received Solu-Medrol 20 mg IV 1, Lasix 40 mg IV 1 and was transferred IM [facility] 521. Hemodynamically stable. Poor mentation 03/25: Reconsulted due to respiratory failure. Patient with gurgling/ transmitted upper airway sounds. Respiration the 50s. Decision made to orotracheally intubate. Noted to have been febrile with increased O2 course over the past 48 hours. 03/26: Afebrile. Requiring Nimbex drip for ventilator synchrony. Decreased urine output noted. Hemoglobin decreased likely dilutional. Tolerating tube feeding. Electrolytes been replaced. 03/27: Tmax 100.9. Currently 97.2. +6 L past 24 hours. Hemoglobin 8 transfuse overnight. Potassium 3. We'll discontinue Nimbex drip for vent synchrony today. 03/28: Afebrile. Negative fluid balance past 24 hours. Hemoglobin currently 9. Potassium 3.0. Currently on sedation vacation positive gag and otherwise unresponsive. 03/29: Tmax 103. Currently afebrile. Not tolerating tube feeds. Remains on Kiran-Synephrine. Did not tolerate sedation vacation back on Versed at 5 mg an hour fentanyl drip at 100 mcg an hour. One bowel movement. 03/30 Tube feeds remain on hold. On neosynephrine 40 mcg/min, RN states she has been weaning. Having BMs. On Versed 8 mg/hr and fentanyl 100 mcg/hr. 03/31 Off versed. Remains on fentanyl 100 mcg/hr. Having hiccups. Still on neosynephrine 40 mcg/min. Tolerating trickle feeds. Had 2 bowel movements 04/01: no meaningful change. still requires fentanyl for sedation. still on low- dose vasopressors. 04/02: no changes. still on levo @ 7 mcg/min. unable to wean off fentanyl due to tachycardia and tachypnea. 04/03: Off all sedation. On low-dose norepinephrine. Essentially unresponsive on the ventilator. Plan for likely withdrawal of care tomorrow 04/04: Off all sedation. Off all vasopressors. According to overnight RN was following commands. Will open eyes but not following commands this AM. 04/05 No events overnight. Afebrile On no sedation. 04/06: Resting comfortably in bed. Eyes are open. Moving head back and forth continuously. Weakly following commands with his upper and lower extremities. 04/07: Low-grade temperatures overnight. 99.8. Eyes are open. Moving back and forth. Positive BM. Continues to be following commands. 04/08 Patient remains intubated on no sedation awake and follows commands. Tmax 100.8 04/09 Patient remains intubated, tolerated CPAP all day and had good responses in UO with Bumex yesterday. Afebrile. 04/10: Tmax 99.1. Went back on set rate ventilation yesterday. Will attempt PSV trials throughout the day with goal to attempt extubation tomorrow. 04/11: Tmax 100.2. Currently 100.1. Did not tolerate weaning parameters with NIF -9 and unacceptable RSBI. Patient is arousable and follows commands eyes open 04/12: Omayra care reports tonic-clonic seizure activity this AM. Heart rate in the 140s during episode with violent shaking. On examination, patient's eyes are open and at baseline except currently not following commands. 04/13: had 2 seizures this morning, both resolved without medication interventions. Dr. Fabrizio navas'd at bedside earlier and ordered Cerebyx load. no other changes. plan for trach/peg next week Subjective: 04/14: still having breakthrough seizures on repeat EEG despite Cerebyx and Keppra. plan for PEG tomorrow. 04/15 No events overnight. Remains intubated. On no sedation. For PEG tube placement today. T:101.2 last night. 04/16 Patient remains intubated. For trach this afternoon. s/p PEG tube placement yesterday. Spiked fever with T:102.5 last night. 04/17 Patient s/p trach yesterday. T: 100.3 at midnight. 04/18 Continues to have low-grade fever. No change in mental status. Sputum Pseudomonas pansensitive. No seizures reported in the last 24 hours 04/19: No fever reported. Slightly more awake and was commands on right upper extremity by squeezing hands very weakly. On CPAP 15/04. Slightly tachypneic 04/20: WBC count slightly elevated today, tachypnea on CPAP. Continues to follow commands weakly on right hand. Intermittently about to wiggle toes. Slight increase in white count to 13,000. Tmax 100.9 ID following 04/21: Tolerated only 1 hour CPAP yesterday. Unable to reduce pressure support. Tmax 99.9 Objective Vital Signs Date Time Temp Pulse Resp B/P Pulse Ox O2 Delivery O2 Flow Rate FiO2 04/21/17 08:51 97 35 04/21/17 06:00 95 04/21/17 04:00 99.0 22 116/75 Intake and Output 04/20/17 04/20/17 04/21/17 08:00 16:00 00:00 Intake Total 1003 ml 1488 ml 1120 ml Output Total 350 ml 670 ml 300 ml Balance 653 ml 818 ml 820 ml Result Diagram: 04/20/17 0528 04/20/17 0528 Imaging Last Impressions Chest X-Ray 04/16/17 0000 Signed Impressions: Service Date/Time: Sunday, April 16, 2017 13:49 - CONCLUSION: 1. Bilateral pulmonary opacities. 2. Adequate placement of tracheostomy tube. Logan Morgan MD Abdomen/Pelvis CT 04/16/17 0000 Signed Impressions: Service Date/Time: Sunday, April 16, 2017 11:26 - CONCLUSION: 1. Cirrhosis and splenomegaly. 2. Ascites 3. Anasarca 4. No pancreas mass identified Yinka Harman MD Liver Ultrasound 04/15/17 0000 Signed Impressions: Service Date/Time: Saturday, April 15, 2017 09:24 - CONCLUSION: 1. Abnormal appearance of the pancreas with a nonspecific hypoechoic area involving the posterior part of the pancreas along the head and body region. Recommend CT scan of the abdomen with oral and IV contrast further evaluation. 2. Fatty infiltration throughout the liver. 3. There is thickening of the gallbladder wall at 6 mm. This is suggestive of chronic gallbladder disease. 4. Small amount of free fluid adjacent to the liver and spleen in the upper abdomen.. 5. Right-sided pleural effusion. Víctor Rosas MD Abdomen X-Ray 04/13/17 0000 Signed Impressions: Service Date/Time: Thursday, April 13, 2017 10:36 - CONCLUSION: Dobbhoff tip in distal stomach. No evidence of obstruction. Logan Morgan MD Head CT 04/12/17 0000 Signed Impressions: Service Date/Time: Wednesday, April 12, 2017 21:30 - CONCLUSION: Pontine encephalomalacia. Left mastoiditis. Casper Alva MD Head Magnetic Resonance Angiography 03/28/17 0000 Signed Impressions: Service Date/Time: March 17:22 - CONCLUSION: Unremarkable examination. Bety Castillo MD Brain MRI 03/28/17 0000 Signed Impressions: Service Date/Time: March 17:22 - CONCLUSION: 1. 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 Small subacute ischemic bilateral thalamic infarcts. 2. There has been no significant change when compared to the prior exam. Yinka Harman MD Lower Extremity Ultrasound 03/25/17 0000 Signed Impressions: Service Date/Time: Saturday, March 25, 2017 22:17 - CONCLUSION: No evidence of DVT. Víctor Rosas MD CT Angiography 03/21/17 0000 Signed Impressions: Service Date/Time: March 00:33 - CONCLUSION: No evidence of pulmonary embolism is identified. Mild atelectasis left lung base. Fluid or phlegm within the trachea. Milo Muhammad MD Abdomen Ultrasound 03/20/17 0000 Signed Impressions: Service Date/Time: Monday, March 20, 2017 11:38 - CONCLUSION: 1. Hepatosplenomegaly without focal lesion. 2. Probable sludge within the lumen of the gallbladder. No intrahepatic duct. Cheo Martínez MD Shoulder X-Ray 03/02/17 1404 Signed Impressions: Service Date/Time: Thursday, March 02, 2017 15:18 - CONCLUSION: No evidence of recent bony injury. Deformity of the lateral left clavicle suggests old healed trauma. Cheo Martínez MD Maxillofacial CT 03/02/17 1342 Signed Impressions: Service Date/Time: Thursday, March 02, 2017 14:52 - CONCLUSION: Negative CT of the facial bones. Cheo Martínez MD Chest CT 03/02/17 1342 Signed Impressions: Service Date/Time: Thursday, March 02, 2017 15:04 - CONCLUSION: 1. Abnormal appearance of the lateral left clavicle suggesting a combination of acute and chronic bony injury. Fracture lucencies without bridging callus is seen the region of the coracoid process. 2. The lungs are clear. No evidence of pneumothorax. 3. Moderate size hiatus hernia. Cheo Martínez MD Cervical Spine CT 03/02/17 1342 Signed Impressions: Service Date/Time: Thursday, March 02, 2017 14:52 - CONCLUSION: Negative CT cervical spine. Cheo Martínez MD Objective Remarks GENERAL: 61-year-old chronically ill appearing male, critically ill. HEENT: Healing abrasion left side scalp. TIMOTHY. Scleral icterus. Poor dentition. NECK: Trachea Midline, Trach without bleed RESP: Coarse breath sounds bilaterally. Few wheezes. Tachypneic on CPAP CARDIOVASCULAR: Tachycardia, RR. ABDOMEN: Slightly distended but soft, bowel sounds present, tolerating tube feeds. : Johns in place with conrad urine output. mild/moderate scrotal edema. MUSCULOSKELETAL: No obvious deformity. 1+ edema all extremities NEUROLOGICAL: Eyes are open spontaneously. Following commands on right upper extremity by squeezing hands very weakly.Wiggles toes very weakly A/P Assessment and Plan Neuro/Psych: Osmotic demyelination syndrome Acute toxic metabolic encephalopathy secondary to hypercarbic respiratory failure Alcohol dependence Seizures (History of EtOH induced seizure withdrawal) Chronic benzodiazepine use Bilateral thalamic CVA Off all sedation. oxycodone 5 mg every 4 hours as needed for pain. Ativan 0.5 mg PRN for sz MRI 03/21 - findings consistent with Osmotic demyelination syndrome. ODS most likely from rapid correction of Na, with underlying alcoholism. ( Patient was profoundly hypotensive in shock requiring multiple pressors at that time) MRI brain 03/28 revealed subacute bilateral thalamic lacunar infarcts, ODS. CT head 03/05 revealed no acute intracranial findings Continue thiamine Seen by neurology/Dr. Mazariegos. EEG with persistent seizures. continue Keppra 1000mg BID Respiratory: Acute hypoxemic hypercapnic respiratory failure PRVC 18/550/1.2/. Continue with vent support keep sat >92% Ventilator bundle, s/p trach 04/16 Bronchodilator therapy every 6 hours and as needed SBT daily as pablo. Pulm toilet, trach care. TP for 2-4 hours (Unable to place on TP yet due to tachypnea) Tolerated CPAP only 1 hour 04/20/17 Cardiovascular: Chronic Systolic heart failure Echocardiogram 03/04 revealed EF 35-40%. Mild MR. Left atrium dilated. JANE 33 mmHg s/p hydrocortisone. Continue midodrine 10 mg 3 times Monitor HR and BP keep MAP>65mmHg Renal/FEN: Acute Kidney Injury Rhabdomyolysis- resolved ODS-see neuro Hypernatremia Monitor renal function, I/O's, electrolytes replacement per protocol. DC D5/1/2 NS 04/21 GI: EtOH cirrhosis Hyperammonemia Hiatal hernia Sigmoid diverticulosis Hypoalbuminemia Continue tube feeds via PEG tube-(Jevity 1.5 with goal rate 60ml/hr) s/p PEG tube placement 04/15 CT abdomen/pelvis 04/16: Cirrhosis of liver, splenomegaly, anasarca, ascites(mild ) On Xifaxan 550 twice a day/lactulose 30 twice a day. US Liver 04/15: Abnormal appearance of the pancreas with a nonspecific hypoechoic area involving the posterior part of the pancreas along the head and body region. Fatty infiltration throughout the liver. There is thickening of the gallbladder wall at 6 mm. Suggestive of chronic gallbladder disease. Small amount of free fluid adjacent to the liver and spleen in the upper abdomen. Right-sided pleural effusion. 03/20 Ultrasound liver-hepatosplenomegaly. Sludge in gallbladder On IV Protonix Heme: Leukocytosis Macrocytic anemia Monitor CBC. No indications for transfusion of blood proximally postop B12 1452, Folate 15.2. TSH 0.8. ID: Aspiration pneumonia, PSAE in sputum Escherichia coli UTI 03/11 - completed therapy Acinetobacter pneumonia Pertinent cultures 04/15 Sputum cx: PSAE 04/15 urine cx: Klebsiella 04/15 BC: NGTD 04/12 BC: NGTD 04/08 - blood cultures 2 - no growth 04/08 - sputum - no growth 04/05 - urine -C GLABRATA AND C. ALBICANS 03/29 - blood cultures 2 - NGTD 03/25 - sputum --Acinetobacter. 03/25 - urine - NGTD 03/25 - blood cultures 2 -no growth 03/22 - urine - no growth 03/22 - blood cultures 2 - negative 03/20 - blood cultures 2 - no growth 03/11 - urine - Escherichia coli 03/02 - blood cultures 2 - no growth Followed by Dr. Lisa/ID. Changed Zosyn to cefepime 04/17 Levaquin started 04/20/17 by ID. Complete therapy by 04/30/17 Off Flagyl po 03/24 Procalcitonin level: 0.40, C-diff PCR negative 04/10 Endocrine: Hyperglycemia of critical illness History of hypothyroidism SSI with Accu-Cheks every 4 hours to maintain euglycemia MSK: History of old left clavicle fracture PT/OT evaluate and treat Access Peripheral IV. Prophylaxis: GI - Protonix DVT - SCD/heparin subcutaneous Palliative care is following code status changed to full code per daughter's request. Tamanna Sandhu, daughter/ HCP: from [facility] [phone] now confirmed transferred to [facility] in [place] facility ) Code status -full code CM working on LTAC placement Level 3 Jeyson Shirley MD April 21, 2017 10:37
--- NOTE | 2017-04-21 13:51 | HHI.IDPN ---
Subjective Subjective Remarks Notes reviewed Low grade temps, intermittent S/P trach Awake and following some commands WBC slightly higher Antibiotics Levaquin Lines PIV Past Medical History ETOHism Allergies: Coded Allergies: PEANUTS (Unverified Allergy, Severe, 03/02/17) *MDRO Multi-Drug Resistant Organism (Verified Adverse Reaction, Unknown, ) MRSA PCR screen POSITIVE - 03/02/17 MDR Acinetobacter (sputum) - 03/25/17 Objective . Vital Signs Date Time Temp Pulse Resp B/P Pulse Ox O2 Delivery O2 Flow Rate FiO2 04/21/17 13:10 97 35 04/21/17 12:07 97 35 04/21/17 10:25 97 35 04/21/17 08:51 97 35 04/21/17 08:51 35 04/21/17 07:28 96 35 04/21/17 06:00 95 04/21/17 04:25 96 35 04/21/17 04:00 35 04/21/17 04:00 98 04/21/17 04:00 99.0 98 22 116/75 96 04/21/17 02:00 99 04/21/17 01:20 96 35 04/21/17 00:00 96 04/21/17 00:00 35 04/21/17 00:00 99.2 96 18 104/66 97 04/20/17 22:00 97 35 04/20/17 22:00 103 04/20/17 20:00 99.9 111 25 112/73 96 04/20/17 20:00 111 04/20/17 20:00 35 04/20/17 18:00 110 04/20/17 17:00 112 22 109/72 95 04/20/17 16:30 95 35 04/20/17 16:01 116 36 130/71 04/20/17 16:00 116 04/20/17 16:00 99.8 116 31 130/71 96 04/20/17 16:00 116 31 04/20/17 16:00 35 04/20/17 15:00 118 26 110/77 96 04/20/17 14:00 121 27 111/80 96 04/20/17 14:00 121 04/20/17 04/20/17 04/21/17 15:00 23:00 07:00 Intake Total 1488 ml 1120 ml 1031 ml Output Total 670 ml 300 ml 640 ml Balance 818 ml 820 ml 391 ml Intake Oral 0 ml 0 ml IV Total 803 ml 560 ml 594 ml Tube Feeding 505 ml 360 ml 377 ml Tube Irrigant 180 ml 200 ml 60 ml Output Urine Total 290 ml 250 ml 240 ml Stool Total 380 ml 50 ml 400 ml # Bowel Movements 1 . Laboratory Tests Test 04/20/17 05:28 White Blood Count 13.1 TH/MM3 Red Blood Count 2.56 MIL/MM3 Hemoglobin 8.6 GM/DL Hematocrit 25.7 % Mean Corpuscular Volume 100.5 FL Mean Corpuscular Hemoglobin 33.7 PG Mean Corpuscular Hemoglobin 33.5 % Concent Red Cell Distribution Width 15.7 % Platelet Count 185 TH/MM3 Mean Platelet Volume 8.9 FL Laboratory Tests Test 04/20/17 05:28 Sodium Level 139 MEQ/L Potassium Level 3.5 MEQ/L Chloride Level 107 MEQ/L Carbon Dioxide Level 22.1 MEQ/L Anion Gap 10 MEQ/L Blood Urea Nitrogen 16 MG/DL Creatinine 0.39 MG/DL Estimat Glomerular Filtration 227 ML/MIN Rate Random Glucose 153 MG/DL Calcium Level 7.7 MG/DL Imaging Chest X-Ray 04/19/17 0600 Signed Impressions: Service Date/Time: Wednesday, April 19, 2017 04:24 - CONCLUSION: 1. Stable basilar airspace disease. Tracheostomy unchanged. Miguel Looney MD Liver Ultrasound 04/15/17 0000 Signed Impressions: Service Date/Time: Saturday, April 15, 2017 09:24 - CONCLUSION: 1. Abnormal appearance of the pancreas with a nonspecific hypoechoic area involving the posterior part of the pancreas along the head and body region. Recommend CT scan of the abdomen with oral and IV contrast further evaluation. 2. Fatty infiltration throughout the liver. 3. There is thickening of the gallbladder wall at 6 mm. This is suggestive of chronic gallbladder disease. 4. Small amount of free fluid adjacent to the liver and spleen in the upper abdomen.. 5. Right-sided pleural effusion. Víctor Rosas MD Chest X-Ray 04/13/17 0600 Signed Impressions: Service Date/Time: Thursday, April 13, 2017 03:50 - CONCLUSION: Stable bilateral scattered pulmonary infiltrates. Víctor Rosas MD Abdomen X-Ray 04/13/17 0000 Signed Impressions: Service Date/Time: Thursday, April 13, 2017 10:36 - CONCLUSION: Dobbhoff tip in distal stomach. No evidence of obstruction. Logan Morgan MD Head CT 04/12/17 0000 Signed Impressions: Service Date/Time: Wednesday, April 12, 2017 21:30 - CONCLUSION: Pontine encephalomalacia. Left mastoiditis. Casper Alva MD Head Magnetic Resonance Angiography 03/28/17 0000 Signed Impressions: Service Date/Time: March 17:22 - CONCLUSION: Unremarkable examination. Bety Castillo MD Brain MRI 03/28/17 0000 Signed Impressions: Service Date/Time: March 17:22 - CONCLUSION: 1. 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 Small subacute ischemic bilateral thalamic infarcts. 2. There has been no significant change when compared to the prior exam. Yinka Harman MD Lower Extremity Ultrasound 03/25/17 0000 Signed Impressions: Service Date/Time: Saturday, March 25, 2017 22:17 - CONCLUSION: No evidence of DVT. Víctor Rosas MD CT Angiography 03/21/17 0000 Signed Impressions: Service Date/Time: March 00:33 - CONCLUSION: No evidence of pulmonary embolism is identified. Mild atelectasis left lung base. Fluid or phlegm within the trachea. Milo Muhammad MD Abdomen Ultrasound 03/20/17 0000 Signed Impressions: Service Date/Time: Monday, March 20, 2017 11:38 - CONCLUSION: 1. Hepatosplenomegaly without focal lesion. 2. Probable sludge within the lumen of the gallbladder. No intrahepatic duct. Cheo Martínez MD Shoulder X-Ray 03/02/17 1404 Signed Impressions: Service Date/Time: Thursday, March 02, 2017 15:18 - CONCLUSION: No evidence of recent bony injury. Deformity of the lateral left clavicle suggests old healed trauma. Cheo Martínez MD Maxillofacial CT 03/02/17 1342 Signed Impressions: Service Date/Time: Thursday, March 02, 2017 14:52 - CONCLUSION: Negative CT of the facial bones. Cheo Martínez MD Chest CT 03/02/17 1342 Signed Impressions: Service Date/Time: Thursday, March 02, 2017 15:04 - CONCLUSION: 1. Abnormal appearance of the lateral left clavicle suggesting a combination of acute and chronic bony injury. Fracture lucencies without bridging callus is seen the region of the coracoid process. 2. The lungs are clear. No evidence of pneumothorax. 3. Moderate size hiatus hernia. Cheo Martínez MD Cervical Spine CT 03/02/17 1342 Signed Impressions: Service Date/Time: Thursday, March 02, 2017 14:52 - CONCLUSION: Negative CT cervical spine. Cheo Martínez MD Abdomen/Pelvis CT 03/02/17 1342 Signed Impressions: Service Date/Time: Thursday, March 02, 2017 15:04 - CONCLUSION: Moderate size hiatus hernia. Scattered small sigmoid diverticula. Otherwise negative exam. Cheo Martínez MD Chest X-Ray 04/08/17 0600 Signed Impressions: Service Date/Time: Saturday, April 08, 2017 05:10 - CONCLUSION: 1. Endotracheal tube and weighted feeding tube. 2. Bilateral pulmonary infiltrates. Some improvement from the prior study. Cheo Barrera Jr., MD Chest X-Ray 03/27/17 0600 Signed Impressions: Service Date/Time: Monday, March 27, 2017 02:33 - CONCLUSION: No significant interval change. Víctor Rosas MD Chest X-Ray 03/26/17 0600 Signed Impressions: Service Date/Time: Sunday, March 26, 2017 05:35 - CONCLUSION: Improving bilateral pulmonary infiltrates Víctor Rosas MD Chest X-Ray 03/25/17 1004 Signed Impressions: Service Date/Time: Saturday, March 25, 2017 10:03 - CONCLUSION: 1. Worsening bibasilar consolidation. 2. Endotracheal tube with tip at the thoracic inlet and should be advanced at least 3-4 cm. 3. Adequate placement of left jugular central line without pneumothorax. Logan Morgan MD Chest X-Ray 03/26/17 0600 Signed Impressions: Service Date/Time: Sunday, March 26, 2017 05:35 - CONCLUSION: Improving bilateral pulmonary infiltrates Víctor Rosas MD Lower Extremity Ultrasound 03/25/17 0000 Signed Impressions: Service Date/Time: Saturday, March 25, 2017 22:17 - CONCLUSION: No evidence of DVT. Víctor Rosas MD CT Angiography 03/21/17 0000 Signed Impressions: Service Date/Time: March 00:33 - CONCLUSION: No evidence of pulmonary embolism is identified. Mild atelectasis left lung base. Fluid or phlegm within the trachea. Milo Muhammad MD Brain MRI 03/20/17 0000 Signed Impressions: Service Date/Time: Monday, March 20, 2017 16:11 - CONCLUSION: Abnormal appearance to the ruthy with some extension into the cortical spinal tracts of the posterior thalamus was bilaterally. 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 Cheo Martínez MD Abdomen X-Ray 03/20/17 0000 Signed Impressions: Service Date/Time: Monday, March 20, 2017 18:12 - CONCLUSION: Tip of the Dobbhoff tube projecting towards the pylorus. Cheo Barrera Jr., MD Abdomen Ultrasound 03/20/17 0000 Signed Impressions: Service Date/Time: Monday, March 20, 2017 11:38 - CONCLUSION: 1. Hepatosplenomegaly without focal lesion. 2. Probable sludge within the lumen of the gallbladder. No intrahepatic duct. Cheo Martínez MD Shoulder X-Ray 03/02/17 1404 Signed Impressions: Service Date/Time: Thursday, March 02, 2017 15:18 - CONCLUSION: No evidence of recent bony injury. Deformity of the lateral left clavicle suggests old healed trauma. Cheo Martínez MD Maxillofacial CT 03/02/17 1342 Signed Impressions: Service Date/Time: Thursday, March 02, 2017 14:52 - CONCLUSION: Negative CT of the facial bones. Cheo Martínez MD Head CT 03/02/17 1342 Signed Impressions: Service Date/Time: Thursday, March 02, 2017 14:52 - CONCLUSION: 1. Prominent scalp swelling left frontal and parietal region. No skull fracture seen. 2. Intracranial contents are intact without acute finding. Cheo Martínez MD Chest CT 03/02/17 1342 Signed Impressions: Service Date/Time: Thursday, March 02, 2017 15:04 - CONCLUSION: 1. Abnormal appearance of the lateral left clavicle suggesting a combination of acute and chronic bony injury. Fracture lucencies without bridging callus is seen the region of the coracoid process. 2. The lungs are clear. No evidence of pneumothorax. 3. Moderate size hiatus hernia. Cheo Martínez MD Cervical Spine CT 03/02/17 1342 Signed Impressions: Service Date/Time: Thursday, March 02, 2017 14:52 - CONCLUSION: Negative CT cervical spine. Cheo Martínez MD Abdomen/Pelvis CT 03/02/17 1342 Signed Impressions: Service Date/Time: Thursday, March 02, 2017 15:04 - CONCLUSION: Moderate size hiatus hernia. Scattered small sigmoid diverticula. Otherwise negative exam. Cheo Martínez MD Chest X-Ray 03/25/17 1004 Signed Impressions: Service Date/Time: Saturday, March 25, 2017 10:03 - CONCLUSION: 1. Worsening bibasilar consolidation. 2. Endotracheal tube with tip at the thoracic inlet and should be advanced at least 3-4 cm. 3. Adequate placement of left jugular central line without pneumothorax. Logan Morgan MD Chest X-Ray 03/23/17 0000 Signed Impressions: Service Date/Time: Thursday, March 23, 2017 14:27 - CONCLUSION: 1. Feeding tube in place with what appears to be a loop in the hypopharynx. 2. Bibasilar areas of consolidation or atelectasis. Casper Vargas MD Physical Exam GENERAL: Awake, focusing, following some commands, on the vent, NAD SKIN: Warm and dry. No generalized rash. HEENT: Pupils equal round and reactive. Poor dentition. A lot of oral secretions NECK: Supple, nontender, no meningeal signs. Previous line site ok. Trach site ok CARDIOVASCULAR: Regular rate and rhythm without murmurs, gallops, or rubs. RESPIRATORY: Scattered rhonchi GASTROINTESTINAL: Abdomen mildly distended, bowel sounds are present and normoactive, no reaction to palpation. PEG site ok MUSCULOSKELETAL: Lower extremities without clubbing, cyanosis. (+) pedal edema. NEUROLOGICAL: Awake and focusing : Johns cath in place, urine looks better. Scrotum edematous LINE: PIV no evidence of infection Assessment & Plan Remarks IMPRESSION Sepsis syndrome, due to PNA - on vent - has MDR Acinetobacter, S/P RX MDR Acinetobacter PNA - S/P Rx Recurrent fevers, etiology? - low grade now - has UTI - CXR stable infiltrates, only with few WBC on G/S - no line - ?drug fever (anticonvulsants) Kleb UTI New VAP, has PSAE Septic shock, BP better, off pressors Known ETOH abuse Encephalopathy - sepsis, ETOH, CPM Respiratory failure - S/P trach Diarrhea, C diff negative Seizures, controlled - ?due to CPM - per records had ETOH withdrawal SZ RECOMMENDATION Follow temps Monitor progress Weaning per CCM ?LTAC Continue Levaquin - plan to complete RX 04/30 D/W Umm Lui MD April 21, 2017 13:51
[2017-04-22] VITALS (16 sets, daily range): BP systolic 92–101; BP diastolic 63–69; PULSE 87–99; RESP 18–21; TEMP 99–99.1; O2SAT 94–99
[2017-04-22] MEDS: INSULIN NovoLIN REGULAR SUPPLEMENTAL SCALE SQ SCH ×5 (03:08→20:00)
[2017-04-22] MEDS: MIDODRINE 5 MG TAB PO SCH ×3 (05:36→20:36)
--- NOTE | 2017-04-22 05:59 | RADRPT ---
EXAM DATE/TIME: 04/22/2017 03:59 [facility] COMPARISON: CHEST SINGLE AP, April 19, 2017, 4:24. INDICATIONS : Shortness of breath, possible pulmonary disease. MEDICAL HISTORY : Cerebrovascular disease. SURGICAL HISTORY : Craniotomy. ENCOUNTER: Subsequent ACUITY: 1 month PAIN SCORE: Non-responsive. LOCATION: Bilateral chest FINDINGS: Tracheostomy tube is present in satisfactory position. Bibasilar opacities are present may be due to a combination of consolidation and or pleural effusion. There is also add additional atelectasis in t he left lower lung. CONCLUSION: No appreciable change. Bety Castillo MD on April 22, 2017 at 5:56 Board Certified Radiologist. This report was verified electronically.
[2017-04-22 06:16] LABS: AUTOMATED NEUTROPHIL # 8.3 TH/MM3 (1.8-7.7); BASOPHIL # 0.1 TH/MM3 (0-0.2); BASOPHIL % 0.6 % (0.0-2.0); EOSINOPHIL # 0.2 TH/MM3 (0-0.4); EOSINOPHIL % 2.1 % (0.0-4.0); HEMATOCRIT 26.5 % (39.0-51.0); HEMO FLAGS DIFF FINAL; LYMPH % 12.7 % (9.0-44.0); LYMPHOCYTE # 1.3 TH/MM3 (1.0-4.8); MEAN CELL VOLUME 102.5 FL (80.0-100.0); MEAN CORPUSCULAR HEMOGLOBIN 35.3 PG (27.0-34.0); MEAN CORPUSCULAR HGB CONC 34.4 % (32.0-36.0); MONO % 5.2 % (0.0-8.0); NEUT % 79.4 % (16.0-70.0); PLATELET COUNT 185 TH/MM3 (150-450); RED BLOOD COUNT 2.58 MIL/MM3 (4.50-5.90); RED CELL DISTRIBUTION WIDTH 15.9 % (11.6-17.2); WHITE BLOOD COUNT 10.5 TH/MM3 (4.0-11.0)
[2017-04-22 06:45] LABS: ALT (GPT) 90 U/L (12-78); ANION GAP 8 MEQ/L (5-15); AST (GOT) 180 U/L (15-37); BICARBONATE 22.6 MEQ/L (21.0-32.0); BLOOD UREA NITROGEN 17 MG/DL (7-18); CHLORIDE 108 MEQ/L (98-107); GLOMERULAR FILTRATION RATE 295 ML/MIN (>89); POTASSIUM 3.9 MEQ/L (3.5-5.1); SODIUM (NA) 139 MEQ/L (136-145)
[2017-04-22 06:47] LABS: ALKALINE PHOSPHATASE 473 U/L (45-117)
[2017-04-22] MEDS: CHLORHEXIDINE 0.12% (ORAL KIT) 15 ML CUP MT SCH ×2 (08:00→20:00)
[2017-04-22] MEDS: NYSTATIN 100,000 U/GM PWD 15 GM BTL TOPICAL SCH ×2 (09:00→20:36)
[2017-04-22] MEDS: ARTIFICIAL TEARS OPTH SOLN 15 ML BTL EACH EYE SCH ×3 (09:00→18:00)
[2017-04-22] MEDS: SODIUM CHLORIDE 0.9% FLUSH 10 ML FLUSH IV FLUSH SCH ×2 (09:00→21:00)
[2017-04-22] MEDS: levETIRAcetam 1000 MG INJ 100 ML IV SCH ×2 (09:00→20:35)
[2017-04-22] MEDS: LEVOFLOXACIN 750 MG TAB PO SCH (09:00)
[2017-04-22] MEDS: LACTOBACILLUS ACIDOPHILUS TAB PO SCH ×3 (09:00→18:00)
[2017-04-22] MEDS: SODIUM CHLORIDE 0.9% FLUSH 10 ML FLUSH IVF SCH (09:00)
[2017-04-22] MEDS: MUPIROCIN 2% OINT 1 APPLIC/GM SYR EACH NARE SCH ×2 (09:00→20:37)
[2017-04-22] MEDS: THIAMINE HCL 100 MG TAB PO SCH (09:00)
[2017-04-22] MEDS: RIFAXIMIN 550 MG TAB PO SCH ×2 (09:00→20:36)
[2017-04-22] MEDS: LACTULOSE SYRUP 20 GM/30 ML CUP PO SCH ×2 (09:00→20:36)
[2017-04-22] MEDS: PANTOPRAZOLE SODIUM 40 MG VIAL IV SCH (09:00)
--- NOTE | 2017-04-22 10:41 | HHI.CCPN ---
Subjective Remarks/Hospital Course This is a 61-year-old male with a past history of alcohol abuse and a prior admission in 2015 for severe life-threatening hyponatremia at that time with a serum sodium of 98. He presents today with what he states is a 13 day history of worsening fatigue and weakness. He is very altered and is very difficult to understand the patient. What I can understand from him, is that at some point during these 13 days he has fallen and hit his face. Otherwise he states he lays on the couch, and has not gotten not much. He states he drinks 1 beer in the morning, and 1 beer in the afternoon. He does endorse taking some Xanax to help him sleep. He denies other drug use. He denies chest pain, shortness of breath, fever, chills, nausea, vomiting, abdominal pain. It is very difficult to get him to answer anymore questions about his medical history. His speech is very slurred and he is trying to talk about how he misses his daughter. Emergency department he was found to have a serum sodium of 99, a bilirubin of 8.9, lactate of 9.8, ammonia of 60, CK of 7000, elevated troponin of 4.9 with a normal MB ratio, creatinine 1.5, serum bicarbonate of 13. His white count is 12 , platelets 112. INR 1.9. His MELD calculates at 26. 4/2: Sodium level rapidly corrected overnight, likely secondary to appropriate correction of severe life-threatening dehydration. NS fluids changed to 1/2NS and correction slowed down significantly. sodium up to 130 this AM. CK downtrending. however, patient remains severely hypotensive requiring Levophed to maintain a map > 65 mmHg. This AM, serum K 1.6 (confirmed). started replacement with 200meq KCl and recheck K. 03/04: persists in vasoplegic distributive shock. afebrile. no evidence of infection. wbc downtrending. persists with severe life-threatening electrolyte derangements. passed swallow eval for nectar thick liquids. sodium stable at 131. ck downtrending. 03/05: persists in distributive shock. echo yesterday with EF 30%, globally decreased function. milrinone added yesterday with improvement in vasopressor requirement. still with multiple electrolyte abnormalities despite very aggressive replacement. very poor appetite. sodium stable at 131, which appears to be around baseline for him, looking back at prior records. also became agitated and delirious yesterday, likely secondary to etoh withdraw. started on Ativan and Librium. 03/06: electrolyte derangements persist. placed on continuous NaPhos infusion x 24h due to severe life-threatening hypophosphatemia. serial K, phos checks. weaning off levophed, milrinone persists. still poor appetite. sodium jumped from 132 to 139, but no significant mental status change, and we did not increase sodium load. 03/07: still requiring high electrolyte replacement. milrinone weaned to 0.375 mcg /kg/min overnight. still doing well with that. delirium persists. 03/08 Remains on milrinone. Electrolyte improving. Remains very lethargic, intermittently follows commands 03/09: Continues to be lethargic but wakes up follows some commands. Remains on milrinone will DC today. T max 100.1, urine output adequate sodium is 143 03/10: More awake alert, ate 50% of break fast. Will DC Dobhoff. Discontinue arterial and central lines. Delirium also improved, remains weak 03/11: doing much better this morning. no complaints. still with poor appetite. electrolytes improved. 03/20: We consulted for respiratory failure. Patient was last seen in room 1415 CMP receiving oral cares and became acutely hypoxic saturations 82% with coarse breath sounds. Halicat called. Patient was placed on a Venturi mask 50 % with desaturations to the mid 90s. He received Solu-Medrol 20 mg IV 1, Lasix 40 mg IV 1 and was transferred IM [facility] 521. Hemodynamically stable. Poor mentation 03/25: Reconsulted due to respiratory failure. Patient with gurgling/ transmitted upper airway sounds. Respiration the 50s. Decision made to orotracheally intubate. Noted to have been febrile with increased O2 course over the past 48 hours. 03/26: Afebrile. Requiring Nimbex drip for ventilator synchrony. Decreased urine output noted. Hemoglobin decreased likely dilutional. Tolerating tube feeding. Electrolytes been replaced. 03/27: Tmax 100.9. Currently 97.2. +6 L past 24 hours. Hemoglobin 8 transfuse overnight. Potassium 3. We'll discontinue Nimbex drip for vent synchrony today. 03/28: Afebrile. Negative fluid balance past 24 hours. Hemoglobin currently 9. Potassium 3.0. Currently on sedation vacation positive gag and otherwise unresponsive. 03/29: Tmax 103. Currently afebrile. Not tolerating tube feeds. Remains on Kiran-Synephrine. Did not tolerate sedation vacation back on Versed at 5 mg an hour fentanyl drip at 100 mcg an hour. One bowel movement. 03/30 Tube feeds remain on hold. On neosynephrine 40 mcg/min, RN states she has been weaning. Having BMs. On Versed 8 mg/hr and fentanyl 100 mcg/hr. 03/31 Off versed. Remains on fentanyl 100 mcg/hr. Having hiccups. Still on neosynephrine 40 mcg/min. Tolerating trickle feeds. Had 2 bowel movements 04/01: no meaningful change. still requires fentanyl for sedation. still on low- dose vasopressors. 04/02: no changes. still on levo @ 7 mcg/min. unable to wean off fentanyl due to tachycardia and tachypnea. 04/03: Off all sedation. On low-dose norepinephrine. Essentially unresponsive on the ventilator. Plan for likely withdrawal of care tomorrow 04/04: Off all sedation. Off all vasopressors. According to overnight RN was following commands. Will open eyes but not following commands this AM. 04/05 No events overnight. Afebrile On no sedation. 04/06: Resting comfortably in bed. Eyes are open. Moving head back and forth continuously. Weakly following commands with his upper and lower extremities. 04/07: Low-grade temperatures overnight. 99.8. Eyes are open. Moving back and forth. Positive BM. Continues to be following commands. 04/08 Patient remains intubated on no sedation awake and follows commands. Tmax 100.8 04/09 Patient remains intubated, tolerated CPAP all day and had good responses in UO with Bumex yesterday. Afebrile. 04/10: Tmax 99.1. Went back on set rate ventilation yesterday. Will attempt PSV trials throughout the day with goal to attempt extubation tomorrow. 04/11: Tmax 100.2. Currently 100.1. Did not tolerate weaning parameters with NIF -9 and unacceptable RSBI. Patient is arousable and follows commands eyes open 04/12: Omayra care reports tonic-clonic seizure activity this AM. Heart rate in the 140s during episode with violent shaking. On examination, patient's eyes are open and at baseline except currently not following commands. 04/13: had 2 seizures this morning, both resolved without medication interventions. Dr. Fabrizio navas'd at bedside earlier and ordered Cerebyx load. no other changes. plan for trach/peg next week Subjective: 04/14: still having breakthrough seizures on repeat EEG despite Cerebyx and Keppra. plan for PEG tomorrow. 04/15 No events overnight. Remains intubated. On no sedation. For PEG tube placement today. T:101.2 last night. 04/16 Patient remains intubated. For trach this afternoon. s/p PEG tube placement yesterday. Spiked fever with T:102.5 last night. 04/17 Patient s/p trach yesterday. T: 100.3 at midnight. 04/18 Continues to have low-grade fever. No change in mental status. Sputum Pseudomonas pansensitive. No seizures reported in the last 24 hours 04/19: No fever reported. Slightly more awake and was commands on right upper extremity by squeezing hands very weakly. On CPAP 15/04. Slightly tachypneic 04/20: WBC count slightly elevated today, tachypnea on CPAP. Continues to follow commands weakly on right hand. Intermittently about to wiggle toes. Slight increase in white count to 13,000. Tmax 100.9 ID following 04/21: Tolerated only 1 hour CPAP yesterday. Unable to reduce pressure support. Tmax 99.9 04/22: Remains on mechanical ventilation via tracheostomy. Tolerated C Pap trial for 1 hour yesterday. Objective Vital Signs Date Time Temp Pulse Resp B/P Pulse Ox O2 Delivery O2 Flow Rate FiO2 04/22/17 09:32 99 35 04/22/17 06:00 93 04/22/17 04:00 99.1 21 92/63 Intake and Output 04/21/17 04/21/17 04/22/17 08:00 16:00 00:00 Intake Total 1031 ml 1218 ml 580 ml Output Total 640 ml 640 ml 550 ml Balance 391 ml 578 ml 30 ml Result Diagram: 04/22/17 0504/22/17 05 Imaging Last Impressions Chest X-Ray 04/16/17 0000 Signed Impressions: Service Date/Time: Sunday, April 16, 2017 13:49 - CONCLUSION: 1. Bilateral pulmonary opacities. 2. Adequate placement of tracheostomy tube. Logan Morgan MD Abdomen/Pelvis CT 04/16/17 0000 Signed Impressions: Service Date/Time: Sunday, April 16, 2017 11:26 - CONCLUSION: 1. Cirrhosis and splenomegaly. 2. Ascites 3. Anasarca 4. No pancreas mass identified Yinka Harman MD Liver Ultrasound 04/15/17 0000 Signed Impressions: Service Date/Time: Saturday, April 15, 2017 09:24 - CONCLUSION: 1. Abnormal appearance of the pancreas with a nonspecific hypoechoic area involving the posterior part of the pancreas along the head and body region. Recommend CT scan of the abdomen with oral and IV contrast further evaluation. 2. Fatty infiltration throughout the liver. 3. There is thickening of the gallbladder wall at 6 mm. This is suggestive of chronic gallbladder disease. 4. Small amount of free fluid adjacent to the liver and spleen in the upper abdomen.. 5. Right-sided pleural effusion. Víctor Rosas MD Abdomen X-Ray 04/13/17 0000 Signed Impressions: Service Date/Time: Thursday, April 13, 2017 10:36 - CONCLUSION: Dobbhoff tip in distal stomach. No evidence of obstruction. Logan Morgan MD Head CT 04/12/17 0000 Signed Impressions: Service Date/Time: Wednesday, April 12, 2017 21:30 - CONCLUSION: Pontine encephalomalacia. Left mastoiditis. Casper Alva MD Head Magnetic Resonance Angiography 03/28/17 0000 Signed Impressions: Service Date/Time: March 17:22 - CONCLUSION: Unremarkable examination. Bety Castillo MD Brain MRI 03/28/17 0000 Signed Impressions: Service Date/Time: March 17:22 - CONCLUSION: 1. 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 Small subacute ischemic bilateral thalamic infarcts. 2. There has been no significant change when compared to the prior exam. Yinka Harman MD Lower Extremity Ultrasound 03/25/17 0000 Signed Impressions: Service Date/Time: Saturday, March 25, 2017 22:17 - CONCLUSION: No evidence of DVT. Víctor Rosas MD CT Angiography 03/21/17 0000 Signed Impressions: Service Date/Time: March 00:33 - CONCLUSION: No evidence of pulmonary embolism is identified. Mild atelectasis left lung base. Fluid or phlegm within the trachea. Milo Muhammad MD Abdomen Ultrasound 03/20/17 0000 Signed Impressions: Service Date/Time: Monday, March 20, 2017 11:38 - CONCLUSION: 1. Hepatosplenomegaly without focal lesion. 2. Probable sludge within the lumen of the gallbladder. No intrahepatic duct. Cheo Martínez MD Shoulder X-Ray 03/02/17 1404 Signed Impressions: Service Date/Time: Thursday, March 02, 2017 15:18 - CONCLUSION: No evidence of recent bony injury. Deformity of the lateral left clavicle suggests old healed trauma. Cheo Martínez MD Maxillofacial CT 03/02/17 1342 Signed Impressions: Service Date/Time: Thursday, March 02, 2017 14:52 - CONCLUSION: Negative CT of the facial bones. Cheo Martínez MD Chest CT 03/02/17 1342 Signed Impressions: Service Date/Time: Thursday, March 02, 2017 15:04 - CONCLUSION: 1. Abnormal appearance of the lateral left clavicle suggesting a combination of acute and chronic bony injury. Fracture lucencies without bridging callus is seen the region of the coracoid process. 2. The lungs are clear. No evidence of pneumothorax. 3. Moderate size hiatus hernia. Cheo Martínez MD Cervical Spine CT 03/02/17 1342 Signed Impressions: Service Date/Time: Thursday, March 02, 2017 14:52 - CONCLUSION: Negative CT cervical spine. Cheo Martínez MD Objective Remarks GENERAL: 61-year-old chronically ill appearing male, critically ill. HEENT: Healing abrasion left side scalp. TIMOTHY. Scleral icterus. Poor dentition. NECK: Trachea Midline, Trach without bleed RESP: Coarse breath sounds bilaterally. Few wheezes. Tachypneic on CPAP CARDIOVASCULAR: Tachycardia, RR. ABDOMEN: Slightly distended but soft, bowel sounds present, tolerating tube feeds. : Johns in place with conrad urine output. mild/moderate scrotal edema. MUSCULOSKELETAL: No obvious deformity. 1+ edema all extremities NEUROLOGICAL: Eyes are open spontaneously. Following commands on right upper extremity by squeezing hands very weakly.Wiggles toes very weakly A/P Assessment and Plan Neuro/Psych: Osmotic demyelination syndrome Acute toxic metabolic encephalopathy secondary to hypercarbic respiratory failure Alcohol dependence Seizures (History of EtOH induced seizure withdrawal) Chronic benzodiazepine use Bilateral thalamic CVA Off all sedation. oxycodone 5 mg every 4 hours as needed for pain. Ativan 0.5 mg PRN for sz MRI 03/21 - findings consistent with Osmotic demyelination syndrome. ODS most likely from rapid correction of Na, with underlying alcoholism. ( Patient was profoundly hypotensive in shock requiring multiple pressors at that time) MRI brain 03/28 revealed subacute bilateral thalamic lacunar infarcts, ODS. CT head 03/05 revealed no acute intracranial findings Continue thiamine Seen by neurology/Dr. Mazariegos. EEG with persistent seizures. continue Keppra 1000mg BID Respiratory: Acute hypoxemic hypercapnic respiratory failure PRVC 18/550/1.2/. Continue with vent support keep sat >92% Ventilator bundle, s/p trach 04/16 Bronchodilator therapy every 6 hours and as needed SBT daily as pablo. Pulm toilet, trach care. TP for 2-4 hours (Unable to place on TP yet due to tachypnea) Tolerated CPAP only 1 hour 04/21/17 Cardiovascular: Chronic Systolic heart failure Echocardiogram 03/04 revealed EF 35-40%. Mild MR. Left atrium dilated. JANE 33 mmHg s/p hydrocortisone. Continue midodrine 10 mg 3 times Monitor HR and BP keep MAP>65mmHg Renal/FEN: Acute Kidney Injury Rhabdomyolysis- resolved ODS-see neuro Hypernatremia Monitor renal function, I/O's, electrolytes replacement per protocol. DC D5/1/2 NS 04/21 GI: EtOH cirrhosis Hyperammonemia Hiatal hernia Sigmoid diverticulosis Hypoalbuminemia Continue tube feeds via PEG tube-(Jevity 1.5 with goal rate 60ml/hr) s/p PEG tube placement 04/15 CT abdomen/pelvis 04/16: Cirrhosis of liver, splenomegaly, anasarca, ascites(mild ) On Xifaxan 550 twice a day/lactulose 30 twice a day. US Liver 04/15: Abnormal appearance of the pancreas with a nonspecific hypoechoic area involving the posterior part of the pancreas along the head and body region. Fatty infiltration throughout the liver. There is thickening of the gallbladder wall at 6 mm. Suggestive of chronic gallbladder disease. Small amount of free fluid adjacent to the liver and spleen in the upper abdomen. Right-sided pleural effusion. 03/20 Ultrasound liver-hepatosplenomegaly. Sludge in gallbladder On IV Protonix Heme: Leukocytosis Macrocytic anemia Monitor CBC. No indications for transfusion of blood proximally postop B12 1452, Folate 15.2. TSH 0.8. ID: Aspiration pneumonia, PSAE in sputum Escherichia coli UTI 03/11 - completed therapy Acinetobacter pneumonia Pertinent cultures 04/15 Sputum cx: PSAE 04/15 urine cx: Klebsiella 04/15 BC: NGTD 04/12 BC: NGTD 04/08 - blood cultures 2 - no growth 04/08 - sputum - no growth 04/05 - urine -C GLABRATA AND C. ALBICANS 03/29 - blood cultures 2 - NGTD 03/25 - sputum --Acinetobacter. 03/25 - urine - NGTD 03/25 - blood cultures 2 -no growth 03/22 - urine - no growth 03/22 - blood cultures 2 - negative 03/20 - blood cultures 2 - no growth 03/11 - urine - Escherichia coli 03/02 - blood cultures 2 - no growth Followed by Dr. Lisa/ID. Changed Zosyn to cefepime 04/17 Levaquin started 04/20/17 by ID. Complete therapy by 04/30/17 Off Flagyl po 03/24 Procalcitonin level: 0.40, C-diff PCR negative 04/10 Endocrine: Hyperglycemia of critical illness History of hypothyroidism SSI with Accu-Cheks every 4 hours to maintain euglycemia MSK: History of old left clavicle fracture PT/OT evaluate and treat Access Peripheral IV. Prophylaxis: GI - Protonix DVT - SCD/heparin subcutaneous Palliative care is following code status changed to full code per daughter's request. Tamanna Sandhu, daughter/ HCP: from [facility] [phone] now confirmed transferred to [facility] in [place] facility ) Code status -full code CM working on LTAC placement Level 3 Elliott Rock MD April 22, 2017 10:41
--- NOTE | 2017-04-22 11:16 | HHI.IDPN ---
Subjective Subjective Remarks Notes reviewed Temps ok On the vent S/P trach Awake and following some commands WBC down to normal Antibiotics Levaquin Lines PIV Past Medical History ETOHism Allergies: Coded Allergies: PEANUTS (Unverified Allergy, Severe, 03/02/17) *MDRO Multi-Drug Resistant Organism (Verified Adverse Reaction, Unknown, ) MRSA PCR screen POSITIVE - 03/02/17 MDR Acinetobacter (sputum) - 03/25/17 Objective . Vital Signs Date Time Temp Pulse Resp B/P Pulse Ox O2 Delivery O2 Flow Rate FiO2 04/22/17 09:32 99 35 04/22/17 06:00 93 04/22/17 04:00 96 04/22/17 04:00 99.1 96 21 92/63 94 04/22/17 04:00 35 04/22/17 03:46 95 35 04/22/17 02:00 93 04/22/17 00:03 96 35 04/22/17 00:00 35 04/22/17 00:00 96 04/22/17 00:00 99.0 96 18 101/69 94 04/21/17 22:00 91 04/21/17 20:28 97 35 04/21/17 20:00 35 04/21/17 20:00 96 04/21/17 20:00 99.2 96 21 113/71 96 04/21/17 18:00 94 04/21/17 16:06 96 35 04/21/17 16:00 95 04/21/17 16:00 99.7 95 19 110/70 97 04/21/17 16:00 35 04/21/17 14:00 100 04/21/17 13:10 97 35 04/21/17 12:07 97 35 04/21/17 12:00 102 04/21/17 12:00 35 04/21/17 12:00 99.0 102 38 110/76 97 04/21/17 04/21/17 04/22/17 14:59 22:59 06:59 Intake Total 1218 ml 580 ml 475 ml Output Total 640 ml 550 ml 425 ml Balance 578 ml 30 ml 50 ml Intake Oral 0 ml 0 ml 0 ml IV Total 711 ml 110 ml 35 ml Tube Feeding 447 ml 410 ml 380 ml Tube Irrigant 60 ml 60 ml 60 ml Output Urine Total 240 ml 250 ml 275 ml Stool Total 400 ml 300 ml 150 ml . Laboratory Tests Test 04/22/17 05:17 White Blood Count 10.5 TH/MM3 Red Blood Count 2.58 MIL/MM3 Hemoglobin 9.1 GM/DL Hematocrit 26.5 % Mean Corpuscular Volume 102.5 FL Mean Corpuscular Hemoglobin 35.3 PG Mean Corpuscular Hemoglobin 34.4 % Concent Red Cell Distribution Width 15.9 % Platelet Count 185 TH/MM3 Mean Platelet Volume 9.6 FL Neutrophils (%) (Auto) 79.4 % Lymphocytes (%) (Auto) 12.7 % Monocytes (%) (Auto) 5.2 % Eosinophils (%) (Auto) 2.1 % Basophils (%) (Auto) 0.6 % Neutrophils # (Auto) 8.3 TH/MM3 Lymphocytes # (Auto) 1.3 TH/MM3 Monocytes # (Auto) 0.5 TH/MM3 Eosinophils # (Auto) 0.2 TH/MM3 Basophils # (Auto) 0.1 TH/MM3 CBC Comment DIFF FINAL Differential Comment Laboratory Tests Test 04/22/17 05:17 Sodium Level 139 MEQ/L Potassium Level 3.9 MEQ/L Chloride Level 108 MEQ/L Carbon Dioxide Level 22.6 MEQ/L Anion Gap 8 MEQ/L Blood Urea Nitrogen 17 MG/DL Creatinine 0.31 MG/DL Estimat Glomerular Filtration 295 ML/MIN Rate Random Glucose 106 MG/DL Calcium Level 8.2 MG/DL Total Bilirubin 1.0 MG/DL Aspartate Amino Transf 180 U/L (AST/SGOT) Alanine Aminotransferase 90 U/L (ALT/SGPT) Alkaline Phosphatase 473 U/L Total Protein 5.9 GM/DL Albumin 1.4 GM/DL Imaging Chest X-Ray 04/19/17 0600 Signed Impressions: Service Date/Time: Wednesday, April 19, 2017 04:24 - CONCLUSION: 1. Stable basilar airspace disease. Tracheostomy unchanged. Miguel Looney MD Liver Ultrasound 04/15/17 0000 Signed Impressions: Service Date/Time: Saturday, April 15, 2017 09:24 - CONCLUSION: 1. Abnormal appearance of the pancreas with a nonspecific hypoechoic area involving the posterior part of the pancreas along the head and body region. Recommend CT scan of the abdomen with oral and IV contrast further evaluation. 2. Fatty infiltration throughout the liver. 3. There is thickening of the gallbladder wall at 6 mm. This is suggestive of chronic gallbladder disease. 4. Small amount of free fluid adjacent to the liver and spleen in the upper abdomen.. 5. Right-sided pleural effusion. Víctor Rosas MD Chest X-Ray 04/13/17 0600 Signed Impressions: Service Date/Time: Thursday, April 13, 2017 03:50 - CONCLUSION: Stable bilateral scattered pulmonary infiltrates. Víctor Rosas MD Abdomen X-Ray 04/13/17 0000 Signed Impressions: Service Date/Time: Thursday, April 13, 2017 10:36 - CONCLUSION: Dobbhoff tip in distal stomach. No evidence of obstruction. Logan Morgan MD Head CT 04/12/17 0000 Signed Impressions: Service Date/Time: Wednesday, April 12, 2017 21:30 - CONCLUSION: Pontine encephalomalacia. Left mastoiditis. Casper Alva MD Head Magnetic Resonance Angiography 03/28/17 0000 Signed Impressions: Service Date/Time: March 17:22 - CONCLUSION: Unremarkable examination. Bety Castillo MD Brain MRI 03/28/17 0000 Signed Impressions: Service Date/Time: March 17:22 - CONCLUSION: 1. 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 Small subacute ischemic bilateral thalamic infarcts. 2. There has been no significant change when compared to the prior exam. Yinka Harman MD Lower Extremity Ultrasound 03/25/17 0000 Signed Impressions: Service Date/Time: Saturday, March 25, 2017 22:17 - CONCLUSION: No evidence of DVT. Víctor Rosas MD CT Angiography 03/21/17 0000 Signed Impressions: Service Date/Time: March 00:33 - CONCLUSION: No evidence of pulmonary embolism is identified. Mild atelectasis left lung base. Fluid or phlegm within the trachea. Milo Muhammad MD Abdomen Ultrasound 03/20/17 0000 Signed Impressions: Service Date/Time: Monday, March 20, 2017 11:38 - CONCLUSION: 1. Hepatosplenomegaly without focal lesion. 2. Probable sludge within the lumen of the gallbladder. No intrahepatic duct. Cheo Martínez MD Shoulder X-Ray 03/02/17 1404 Signed Impressions: Service Date/Time: Thursday, March 02, 2017 15:18 - CONCLUSION: No evidence of recent bony injury. Deformity of the lateral left clavicle suggests old healed trauma. Cheo Martínez MD Maxillofacial CT 03/02/17 1342 Signed Impressions: Service Date/Time: Thursday, March 02, 2017 14:52 - CONCLUSION: Negative CT of the facial bones. Cheo Martínez MD Chest CT 03/02/17 1342 Signed Impressions: Service Date/Time: Thursday, March 02, 2017 15:04 - CONCLUSION: 1. Abnormal appearance of the lateral left clavicle suggesting a combination of acute and chronic bony injury. Fracture lucencies without bridging callus is seen the region of the coracoid process. 2. The lungs are clear. No evidence of pneumothorax. 3. Moderate size hiatus hernia. Cheo Martínez MD Cervical Spine CT 03/02/17 1342 Signed Impressions: Service Date/Time: Thursday, March 02, 2017 14:52 - CONCLUSION: Negative CT cervical spine. Cheo Martínez MD Abdomen/Pelvis CT 03/02/17 1342 Signed Impressions: Service Date/Time: Thursday, March 02, 2017 15:04 - CONCLUSION: Moderate size hiatus hernia. Scattered small sigmoid diverticula. Otherwise negative exam. Cheo Martínez MD Chest X-Ray 04/08/17 0600 Signed Impressions: Service Date/Time: Saturday, April 08, 2017 05:10 - CONCLUSION: 1. Endotracheal tube and weighted feeding tube. 2. Bilateral pulmonary infiltrates. Some improvement from the prior study. Cheo Barrera Jr., MD Chest X-Ray 03/27/17 0600 Signed Impressions: Service Date/Time: Monday, March 27, 2017 02:33 - CONCLUSION: No significant interval change. Víctor Rosas MD Chest X-Ray 03/26/17 0600 Signed Impressions: Service Date/Time: Sunday, March 26, 2017 05:35 - CONCLUSION: Improving bilateral pulmonary infiltrates Víctor Rosas MD Chest X-Ray 03/25/17 1004 Signed Impressions: Service Date/Time: Saturday, March 25, 2017 10:03 - CONCLUSION: 1. Worsening bibasilar consolidation. 2. Endotracheal tube with tip at the thoracic inlet and should be advanced at least 3-4 cm. 3. Adequate placement of left jugular central line without pneumothorax. Logan Morgan MD Chest X-Ray 03/26/17 0600 Signed Impressions: Service Date/Time: Sunday, March 26, 2017 05:35 - CONCLUSION: Improving bilateral pulmonary infiltrates Víctor Rosas MD Lower Extremity Ultrasound 03/25/17 0000 Signed Impressions: Service Date/Time: Saturday, March 25, 2017 22:17 - CONCLUSION: No evidence of DVT. Víctor Rosas MD CT Angiography 03/21/17 0000 Signed Impressions: Service Date/Time: March 00:33 - CONCLUSION: No evidence of pulmonary embolism is identified. Mild atelectasis left lung base. Fluid or phlegm within the trachea. Milo Muhammad MD Brain MRI 03/20/17 0000 Signed Impressions: Service Date/Time: Monday, March 20, 2017 16:11 - CONCLUSION: Abnormal appearance to the ruthy with some extension into the cortical spinal tracts of the posterior thalamus was bilaterally. 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 Cheo Martínez MD Abdomen X-Ray 03/20/17 0000 Signed Impressions: Service Date/Time: Monday, March 20, 2017 18:12 - CONCLUSION: Tip of the Dobbhoff tube projecting towards the pylorus. Cheo Barrera Jr., MD Abdomen Ultrasound 03/20/17 0000 Signed Impressions: Service Date/Time: Monday, March 20, 2017 11:38 - CONCLUSION: 1. Hepatosplenomegaly without focal lesion. 2. Probable sludge within the lumen of the gallbladder. No intrahepatic duct. Cheo Martínez MD Shoulder X-Ray 03/02/17 1404 Signed Impressions: Service Date/Time: Thursday, March 02, 2017 15:18 - CONCLUSION: No evidence of recent bony injury. Deformity of the lateral left clavicle suggests old healed trauma. Cheo Martínez MD Maxillofacial CT 03/02/17 1342 Signed Impressions: Service Date/Time: Thursday, March 02, 2017 14:52 - CONCLUSION: Negative CT of the facial bones. Cheo Martínez MD Head CT 4/1/17 1342 Signed Impressions: Service Date/Time: Thursday, March 02, 2017 14:52 - CONCLUSION: 1. Prominent scalp swelling left frontal and parietal region. No skull fracture seen. 2. Intracranial contents are intact without acute finding. Cheo Martínez MD Chest CT 03/02/17 1342 Signed Impressions: Service Date/Time: Thursday, March 02, 2017 15:04 - CONCLUSION: 1. Abnormal appearance of the lateral left clavicle suggesting a combination of acute and chronic bony injury. Fracture lucencies without bridging callus is seen the region of the coracoid process. 2. The lungs are clear. No evidence of pneumothorax. 3. Moderate size hiatus hernia. Cheo Martínez MD Cervical Spine CT 03/02/17 1342 Signed Impressions: Service Date/Time: Thursday, March 02, 2017 14:52 - CONCLUSION: Negative CT cervical spine. Cheo Martínez MD Abdomen/Pelvis CT 03/02/17 1342 Signed Impressions: Service Date/Time: Thursday, March 02, 2017 15:04 - CONCLUSION: Moderate size hiatus hernia. Scattered small sigmoid diverticula. Otherwise negative exam. Cheo Martínez MD Chest X-Ray 03/25/17 1004 Signed Impressions: Service Date/Time: Saturday, March 25, 2017 10:03 - CONCLUSION: 1. Worsening bibasilar consolidation. 2. Endotracheal tube with tip at the thoracic inlet and should be advanced at least 3-4 cm. 3. Adequate placement of left jugular central line without pneumothorax. Logan Morgan MD Chest X-Ray 03/23/17 0000 Signed Impressions: Service Date/Time: Thursday, March 23, 2017 14:27 - CONCLUSION: 1. Feeding tube in place with what appears to be a loop in the hypopharynx. 2. Bibasilar areas of consolidation or atelectasis. Casper Vargas MD Physical Exam GENERAL: Awake, focusing, following some commands, on the vent, NAD SKIN: Warm and dry. No generalized rash. HEENT: Pupils equal round and reactive. Poor dentition. A lot of oral secretions NECK: Supple, nontender, no meningeal signs. Previous line site ok. Trach site ok CARDIOVASCULAR: Regular rate and rhythm without murmurs, gallops, or rubs. RESPIRATORY: Scattered rhonchi GASTROINTESTINAL: Abdomen mildly distended, bowel sounds are present and normoactive, no reaction to palpation. PEG site ok MUSCULOSKELETAL: Lower extremities without clubbing, cyanosis. (+) pedal edema. NEUROLOGICAL: Awake and focusing : Johns cath in place, urine looks better. Scrotum edematous LINE: PIV no evidence of infection Assessment & Plan Remarks IMPRESSION Sepsis syndrome, due to PNA - on vent - has MDR Acinetobacter, S/P RX MDR Acinetobacter PNA - S/P Rx Recurrent fevers, etiology? - better - has UTI - CXR stable infiltrates, only with few WBC on G/S - no line - ?drug fever (anticonvulsants) Kleb UTI New VAP, has PSAE Septic shock, BP better, off pressors Known ETOH abuse Encephalopathy - sepsis, ETOH, CPM Respiratory failure - S/P trach Diarrhea, C diff negative Seizures, controlled - ?due to CPM - per records had ETOH withdrawal SZ RECOMMENDATION Follow temps Monitor progress Weaning per [facility] ?LTAC Continue Levaquin - plan to complete RX 04/30 D/W RN D/W Dr Lisa Rock ([facility]) Umm Lisa MD April 22, 2017 11:16
--- NOTE | 2017-04-22 13:14 | EKG ---
Date Performed: 04/21/2017 Time Performed: 16:15:25 PTAGE: 61 years EKG: Sinus rhythm LOW QRS VOLTAGE IN PRECORDIAL LEADS BORDERLINE ECG Low voltage is new since prior tracing. Anterior T-wave abnormalities resolved since prior tracing. PREVIOUS TRACING : 03/20/2017 19.39 DOCTOR: José Miguel Fernandez Interpretating Date/Time 04/22/2017 13:12:54
[2017-04-22] MEDS: RESP: ALBUTEROL 2.5 MG/3 ML NEB (PRN) INH (20:08)
[2017-04-23] VITALS (44 sets, daily range): BP systolic 96–108; BP diastolic 62–75; PULSE 86–109; RESP 9–40; TEMP 99.2–100.4; O2SAT 90–98
[2017-04-23] MEDS: RESP: ALBUTEROL 2.5 MG/3 ML NEB (PRN) INH (03:48)
[2017-04-23] MEDS: INSULIN NovoLIN REGULAR SUPPLEMENTAL SCALE SQ SCH ×6 (04:00→20:00)
[2017-04-23] MEDS: MIDODRINE 5 MG TAB PO SCH ×3 (06:00→20:32)
[2017-04-23] MEDS: CHLORHEXIDINE 0.12% (ORAL KIT) 15 ML CUP MT SCH ×2 (08:00→20:29)
[2017-04-23] MEDS: LACTOBACILLUS ACIDOPHILUS TAB PO SCH ×3 (09:00→17:10)
[2017-04-23] MEDS: levETIRAcetam 1000 MG INJ 100 ML IV SCH ×2 (09:00→20:31)
[2017-04-23] MEDS: THIAMINE HCL 100 MG TAB PO SCH (09:00)
[2017-04-23] MEDS: MUPIROCIN 2% OINT 1 APPLIC/GM SYR EACH NARE SCH ×2 (09:00→20:30)
[2017-04-23] MEDS: LACTULOSE SYRUP 20 GM/30 ML CUP PO SCH ×2 (09:00→20:31)
[2017-04-23] MEDS: LEVOFLOXACIN 750 MG TAB PO SCH (09:00)
[2017-04-23] MEDS: RIFAXIMIN 550 MG TAB PO SCH ×2 (09:00→20:31)
[2017-04-23] MEDS: PANTOPRAZOLE SODIUM 40 MG VIAL IV SCH (09:00)
[2017-04-23] MEDS: SODIUM CHLORIDE 0.9% FLUSH 10 ML FLUSH IV FLUSH SCH ×2 (09:00→20:31)
[2017-04-23] MEDS: SODIUM CHLORIDE 0.9% FLUSH 10 ML FLUSH IVF SCH (09:00)
[2017-04-23] MEDS: ARTIFICIAL TEARS OPTH SOLN 15 ML BTL EACH EYE SCH ×3 (09:00→17:10)
[2017-04-23] MEDS: NYSTATIN 100,000 U/GM PWD 15 GM BTL TOPICAL SCH ×2 (09:00→20:32)
--- NOTE | 2017-04-23 14:45 | HHI.CCPN ---
Subjective Remarks/Hospital Course This is a 61-year-old male with a past history of alcohol abuse and a prior admission in 2015 for severe life-threatening hyponatremia at that time with a serum sodium of 98. He presents today with what he states is a 13 day history of worsening fatigue and weakness. He is very altered and is very difficult to understand the patient. What I can understand from him, is that at some point during these 13 days he has fallen and hit his face. Otherwise he states he lays on the couch, and has not gotten not much. He states he drinks 1 beer in the morning, and 1 beer in the afternoon. He does endorse taking some Xanax to help him sleep. He denies other drug use. He denies chest pain, shortness of breath, fever, chills, nausea, vomiting, abdominal pain. It is very difficult to get him to answer anymore questions about his medical history. His speech is very slurred and he is trying to talk about how he misses his daughter. Emergency department he was found to have a serum sodium of 99, a bilirubin of 8.9, lactate of 9.8, ammonia of 60, CK of 7000, elevated troponin of 4.9 with a normal MB ratio, creatinine 1.5, serum bicarbonate of 13. His white count is 12 , platelets 112. INR 1.9. His MELD calculates at 26. 4/2: Sodium level rapidly corrected overnight, likely secondary to appropriate correction of severe life-threatening dehydration. NS fluids changed to 1/2NS and correction slowed down significantly. sodium up to 130 this AM. CK downtrending. however, patient remains severely hypotensive requiring Levophed to maintain a map > 65 mmHg. This AM, serum K 1.6 (confirmed). started replacement with 200meq KCl and recheck K. 03/04: persists in vasoplegic distributive shock. afebrile. no evidence of infection. wbc downtrending. persists with severe life-threatening electrolyte derangements. passed swallow eval for nectar thick liquids. sodium stable at 131. ck downtrending. 03/05: persists in distributive shock. echo yesterday with EF 30%, globally decreased function. milrinone added yesterday with improvement in vasopressor requirement. still with multiple electrolyte abnormalities despite very aggressive replacement. very poor appetite. sodium stable at 131, which appears to be around baseline for him, looking back at prior records. also became agitated and delirious yesterday, likely secondary to etoh withdraw. started on Ativan and Librium. 03/06: electrolyte derangements persist. placed on continuous NaPhos infusion x 24h due to severe life-threatening hypophosphatemia. serial K, phos checks. weaning off levophed, milrinone persists. still poor appetite. sodium jumped from 132 to 139, but no significant mental status change, and we did not increase sodium load. 03/07: still requiring high electrolyte replacement. milrinone weaned to 0.375 mcg /kg/min overnight. still doing well with that. delirium persists. 03/08 Remains on milrinone. Electrolyte improving. Remains very lethargic, intermittently follows commands 03/09: Continues to be lethargic but wakes up follows some commands. Remains on milrinone will DC today. T max 100.1, urine output adequate sodium is 143 03/10: More awake alert, ate 50% of break fast. Will DC Dobhoff. Discontinue arterial and central lines. Delirium also improved, remains weak 03/11: doing much better this morning. no complaints. still with poor appetite. electrolytes improved. 03/20: We consulted for respiratory failure. Patient was last seen in room 1415 CMP receiving oral cares and became acutely hypoxic saturations 82% with coarse breath sounds. Halicat called. Patient was placed on a Venturi mask 50 % with desaturations to the mid 90s. He received Solu-Medrol 20 mg IV 1, Lasix 40 mg IV 1 and was transferred IM [facility] 521. Hemodynamically stable. Poor mentation 03/25: Reconsulted due to respiratory failure. Patient with gurgling/ transmitted upper airway sounds. Respiration the 50s. Decision made to orotracheally intubate. Noted to have been febrile with increased O2 course over the past 48 hours. 03/26: Afebrile. Requiring Nimbex drip for ventilator synchrony. Decreased urine output noted. Hemoglobin decreased likely dilutional. Tolerating tube feeding. Electrolytes been replaced. 03/27: Tmax 100.9. Currently 97.2. +6 L past 24 hours. Hemoglobin 8 transfuse overnight. Potassium 3. We'll discontinue Nimbex drip for vent synchrony today. 03/28: Afebrile. Negative fluid balance past 24 hours. Hemoglobin currently 9. Potassium 3.0. Currently on sedation vacation positive gag and otherwise unresponsive. 03/29: Tmax 103. Currently afebrile. Not tolerating tube feeds. Remains on Kiran-Synephrine. Did not tolerate sedation vacation back on Versed at 5 mg an hour fentanyl drip at 100 mcg an hour. One bowel movement. 03/30 Tube feeds remain on hold. On neosynephrine 40 mcg/min, RN states she has been weaning. Having BMs. On Versed 8 mg/hr and fentanyl 100 mcg/hr. 03/31 Off versed. Remains on fentanyl 100 mcg/hr. Having hiccups. Still on neosynephrine 40 mcg/min. Tolerating trickle feeds. Had 2 bowel movements 04/01: no meaningful change. still requires fentanyl for sedation. still on low- dose vasopressors. 04/02: no changes. still on levo @ 7 mcg/min. unable to wean off fentanyl due to tachycardia and tachypnea. 04/03: Off all sedation. On low-dose norepinephrine. Essentially unresponsive on the ventilator. Plan for likely withdrawal of care tomorrow 04/04: Off all sedation. Off all vasopressors. According to overnight RN was following commands. Will open eyes but not following commands this AM. 04/05 No events overnight. Afebrile On no sedation. 04/06: Resting comfortably in bed. Eyes are open. Moving head back and forth continuously. Weakly following commands with his upper and lower extremities. 04/07: Low-grade temperatures overnight. 99.8. Eyes are open. Moving back and forth. Positive BM. Continues to be following commands. 04/08 Patient remains intubated on no sedation awake and follows commands. Tmax 100.8 04/09 Patient remains intubated, tolerated CPAP all day and had good responses in UO with Bumex yesterday. Afebrile. 04/10: Tmax 99.1. Went back on set rate ventilation yesterday. Will attempt PSV trials throughout the day with goal to attempt extubation tomorrow. 04/11: Tmax 100.2. Currently 100.1. Did not tolerate weaning parameters with NIF -9 and unacceptable RSBI. Patient is arousable and follows commands eyes open 04/12: Omayra care reports tonic-clonic seizure activity this AM. Heart rate in the 140s during episode with violent shaking. On examination, patient's eyes are open and at baseline except currently not following commands. 04/13: had 2 seizures this morning, both resolved without medication interventions. Dr. Fabrizio navas'd at bedside earlier and ordered Cerebyx load. no other changes. plan for trach/peg next week Subjective: 04/14: still having breakthrough seizures on repeat EEG despite Cerebyx and Keppra. plan for PEG tomorrow. 04/15 No events overnight. Remains intubated. On no sedation. For PEG tube placement today. T:101.2 last night. 04/16 Patient remains intubated. For trach this afternoon. s/p PEG tube placement yesterday. Spiked fever with T:102.5 last night. 04/17 Patient s/p trach yesterday. T: 100.3 at midnight. 04/18 Continues to have low-grade fever. No change in mental status. Sputum Pseudomonas pansensitive. No seizures reported in the last 24 hours 04/19: No fever reported. Slightly more awake and was commands on right upper extremity by squeezing hands very weakly. On CPAP 15/04. Slightly tachypneic 04/20: WBC count slightly elevated today, tachypnea on CPAP. Continues to follow commands weakly on right hand. Intermittently about to wiggle toes. Slight increase in white count to 13,000. Tmax 100.9 ID following 04/21: Tolerated only 1 hour CPAP yesterday. Unable to reduce pressure support. Tmax 99.9 04/22: Remains on mechanical ventilation via tracheostomy. Tolerated C Pap trial for 1 hour yesterday. 04/23: Remains on mechanical ventilation via tracheostomy. Daily C Pap trials ongoing. Tolerating tube feeds. Objective Vital Signs Date Time Temp Pulse Resp B/P Pulse Ox O2 Delivery O2 Flow Rate FiO2 04/23/17 12:25 106 40 93 04/23/17 12:18 35 04/23/17 11:30 99.2 102/71 Intake and Output 04/22/17 04/22/17 04/22/17 07:59 15:59 23:59 Intake Total 475 ml 564 ml 685 ml Output Total 425 ml 450 ml 500 ml Balance 50 ml 114 ml 185 ml Result Diagram: 04/22/1751604/22/17516 Imaging Last Impressions Chest X-Ray 04/16/17 Signed Impressions: Service Date/Time: Sunday, April 16, 2017 13:49 - CONCLUSION: 1. Bilateral pulmonary opacities. 2. Adequate placement of tracheostomy tube. Logan Morgan MD Abdomen/Pelvis CT 04/16/17 0000 Signed Impressions: Service Date/Time: Sunday, April 16, 2017 11:26 - CONCLUSION: 1. Cirrhosis and splenomegaly. 2. Ascites 3. Anasarca 4. No pancreas mass identified Yinka Harman MD Liver Ultrasound 04/15/17 0000 Signed Impressions: Service Date/Time: Saturday, April 15, 2017 09:24 - CONCLUSION: 1. Abnormal appearance of the pancreas with a nonspecific hypoechoic area involving the posterior part of the pancreas along the head and body region. Recommend CT scan of the abdomen with oral and IV contrast further evaluation. 2. Fatty infiltration throughout the liver. 3. There is thickening of the gallbladder wall at 6 mm. This is suggestive of chronic gallbladder disease. 4. Small amount of free fluid adjacent to the liver and spleen in the upper abdomen.. 5. Right-sided pleural effusion. Víctor Rosas MD Abdomen X-Ray 04/13/17 0000 Signed Impressions: Service Date/Time: Thursday, April 13, 2017 10:36 - CONCLUSION: Dobbhoff tip in distal stomach. No evidence of obstruction. Logan Morgan MD Head CT 04/12/17 0000 Signed Impressions: Service Date/Time: Wednesday, April 12, 2017 21:30 - CONCLUSION: Pontine encephalomalacia. Left mastoiditis. Casper Alva MD Head Magnetic Resonance Angiography 03/28/17 0000 Signed Impressions: Service Date/Time: March 17:22 - CONCLUSION: Unremarkable examination. Bety Castillo MD Brain MRI 03/28/17 0000 Signed Impressions: Service Date/Time: March 17:22 - CONCLUSION: 1. 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 Small subacute ischemic bilateral thalamic infarcts. 2. There has been no significant change when compared to the prior exam. Yinka Harman MD Lower Extremity Ultrasound 03/25/17 0000 Signed Impressions: Service Date/Time: Saturday, March 25, 2017 22:17 - CONCLUSION: No evidence of DVT. Víctor Rosas MD CT Angiography 03/21/17 0000 Signed Impressions: Service Date/Time: March 00:33 - CONCLUSION: No evidence of pulmonary embolism is identified. Mild atelectasis left lung base. Fluid or phlegm within the trachea. Milo Muhammad MD Abdomen Ultrasound 03/20/17 0000 Signed Impressions: Service Date/Time: Monday, March 20, 2017 11:38 - CONCLUSION: 1. Hepatosplenomegaly without focal lesion. 2. Probable sludge within the lumen of the gallbladder. No intrahepatic duct. Cheo Martínez MD Shoulder X-Ray 03/02/17 1404 Signed Impressions: Service Date/Time: Thursday, March 02, 2017 15:18 - CONCLUSION: No evidence of recent bony injury. Deformity of the lateral left clavicle suggests old healed trauma. Cheo Martínez MD Maxillofacial CT 03/02/17 1342 Signed Impressions: Service Date/Time: Thursday, March 02, 2017 14:52 - CONCLUSION: Negative CT of the facial bones. Cheo Martínez MD Chest CT 03/02/17 1342 Signed Impressions: Service Date/Time: Thursday, March 02, 2017 15:04 - CONCLUSION: 1. Abnormal appearance of the lateral left clavicle suggesting a combination of acute and chronic bony injury. Fracture lucencies without bridging callus is seen the region of the coracoid process. 2. The lungs are clear. No evidence of pneumothorax. 3. Moderate size hiatus hernia. Cheo Martínez MD Cervical Spine CT 03/02/17 1342 Signed Impressions: Service Date/Time: Thursday, March 02, 2017 14:52 - CONCLUSION: Negative CT cervical spine. Cheo Martínez MD Objective Remarks GENERAL: 61-year-old chronically ill appearing male, critically ill. HEENT: Healing abrasion left side scalp. TIMOTHY. Scleral icterus. Poor dentition. NECK: Trachea Midline, Trach without bleed RESP: Coarse breath sounds bilaterally. Few wheezes. Tachypneic on CPAP CARDIOVASCULAR: Tachycardia, RR. ABDOMEN: Slightly distended but soft, bowel sounds present, tolerating tube feeds. : Johns in place with conrad urine output. mild/moderate scrotal edema. MUSCULOSKELETAL: No obvious deformity. 1+ edema all extremities NEUROLOGICAL: Eyes are open spontaneously. Following commands on right upper extremity by squeezing hands very weakly.Wiggles toes very weakly A/P Assessment and Plan Neuro/Psych: Osmotic demyelination syndrome Acute toxic metabolic encephalopathy secondary to hypercarbic respiratory failure Alcohol dependence Seizures (History of EtOH induced seizure withdrawal) Chronic benzodiazepine use Bilateral thalamic CVA Off all sedation. oxycodone 5 mg every 4 hours as needed for pain. Ativan 0.5 mg PRN for sz MRI 03/21 - findings consistent with Osmotic demyelination syndrome. ODS most likely from rapid correction of Na, with underlying alcoholism. ( Patient was profoundly hypotensive in shock requiring multiple pressors at that time) MRI brain 03/28 revealed subacute bilateral thalamic lacunar infarcts, ODS. CT head 03/05 revealed no acute intracranial findings Continue thiamine Seen by neurology/Dr. Mazariegos. EEG with persistent seizures. continue Keppra 1000mg BID Respiratory: Acute hypoxemic hypercapnic respiratory failure PRVC 18/550/1.2/. Continue with vent support keep sat >92% Ventilator bundle, s/p trach 04/16 Bronchodilator therapy every 6 hours and as needed SBT daily as pablo. Pulm toilet, trach care. TP for 2-4 hours (Unable to place on TP yet due to tachypnea) Tolerated CPAP only 1 hour 04/21/17 Cardiovascular: Chronic Systolic heart failure Echocardiogram 03/04 revealed EF 35-40%. Mild MR. Left atrium dilated. JANE 33 mmHg s/p hydrocortisone. Continue midodrine 10 mg 3 times Monitor HR and BP keep MAP>65mmHg Renal/FEN: Acute Kidney Injury Rhabdomyolysis- resolved ODS-see neuro Hypernatremia Monitor renal function, I/O's, electrolytes replacement per protocol. DC D5/1/2 NS 04/21 GI: EtOH cirrhosis Hyperammonemia Hiatal hernia Sigmoid diverticulosis Hypoalbuminemia Continue tube feeds via PEG tube-(Jevity 1.5 with goal rate 60ml/hr) s/p PEG tube placement 04/15 CT abdomen/pelvis 04/16: Cirrhosis of liver, splenomegaly, anasarca, ascites(mild ) On Xifaxan 550 twice a day/lactulose 30 twice a day. US Liver 04/15: Abnormal appearance of the pancreas with a nonspecific hypoechoic area involving the posterior part of the pancreas along the head and body region. Fatty infiltration throughout the liver. There is thickening of the gallbladder wall at 6 mm. Suggestive of chronic gallbladder disease. Small amount of free fluid adjacent to the liver and spleen in the upper abdomen. Right-sided pleural effusion. 03/20 Ultrasound liver-hepatosplenomegaly. Sludge in gallbladder On IV Protonix Heme: Leukocytosis Macrocytic anemia Monitor CBC. No indications for transfusion of blood proximally postop B12 1452, Folate 15.2. TSH 0.8. ID: Aspiration pneumonia, PSAE in sputum Escherichia coli UTI 03/11 - completed therapy Acinetobacter pneumonia Pertinent cultures 04/15 Sputum cx: PSAE 04/15 urine cx: Klebsiella 04/15 BC: NGTD 04/12 BC: NGTD 04/08 - blood cultures 2 - no growth 04/08 - sputum - no growth 04/05 - urine -C GLABRATA AND C. ALBICANS 03/29 - blood cultures 2 - NGTD 03/25 - sputum --Acinetobacter. 03/25 - urine - NGTD 03/25 - blood cultures 2 -no growth 03/22 - urine - no growth 03/22 - blood cultures 2 - negative 03/20 - blood cultures 2 - no growth 03/11 - urine - Escherichia coli 03/02 - blood cultures 2 - no growth Followed by Dr. Lisa/ID. Changed Zosyn to cefepime 04/17 Levaquin started 04/20/17 by ID. Complete therapy by 04/30/17 Off Flagyl po 03/24 Procalcitonin level: 0.40, C-diff PCR negative 04/10 Endocrine: Hyperglycemia of critical illness History of hypothyroidism SSI with Accu-Cheks every 4 hours to maintain euglycemia MSK: History of old left clavicle fracture PT/OT evaluate and treat Access Peripheral IV. Prophylaxis: GI - Protonix DVT - SCD/heparin subcutaneous Palliative care is following code status changed to full code per daughter's request. Tamanna Sandhu, daughter/ HCP: from [facility] [phone] now confirmed transferred to [facility] in [place] facility ) Code status -full code CM working on LTAC placement Level 3 Elliott Rock MD April 23, 2017 14:45
[2017-04-24] VITALS (16 sets, daily range): BP systolic 98–110; BP diastolic 66–81; PULSE 89–106; RESP 18–26; TEMP 98.3–99.6; O2SAT 96–99
[2017-04-24] MEDS: INSULIN NovoLIN REGULAR SUPPLEMENTAL SCALE SQ SCH ×6 (04:00→19:51)
[2017-04-24] MEDS: MIDODRINE 5 MG TAB PO SCH ×3 (06:36→20:13)
[2017-04-24] MEDS: THIAMINE HCL 100 MG TAB PO SCH (08:24)
[2017-04-24] MEDS: LEVOFLOXACIN 750 MG TAB PO SCH (08:24)
[2017-04-24] MEDS: ARTIFICIAL TEARS OPTH SOLN 15 ML BTL EACH EYE SCH ×3 (08:24→19:50)
[2017-04-24] MEDS: PANTOPRAZOLE SODIUM 40 MG VIAL IV SCH (08:24)
[2017-04-24] MEDS: LACTULOSE SYRUP 20 GM/30 ML CUP PO SCH ×2 (08:24→19:53)
[2017-04-24] MEDS: NYSTATIN 100,000 U/GM PWD 15 GM BTL TOPICAL SCH ×2 (08:24→19:54)
[2017-04-24] MEDS: LACTOBACILLUS ACIDOPHILUS TAB PO SCH ×3 (08:24→17:55)
[2017-04-24] MEDS: RIFAXIMIN 550 MG TAB PO SCH ×2 (08:24→19:53)
[2017-04-24] MEDS: CHLORHEXIDINE 0.12% (ORAL KIT) 15 ML CUP MT SCH ×2 (08:25→19:50)
[2017-04-24] MEDS: levETIRAcetam 1000 MG INJ 100 ML IV SCH ×2 (08:26→19:53)
[2017-04-24] MEDS: MUPIROCIN 2% OINT 1 APPLIC/GM SYR EACH NARE SCH ×2 (08:26→19:52)
[2017-04-24] MEDS: SODIUM CHLORIDE 0.9% FLUSH 10 ML FLUSH IV FLUSH SCH ×2 (08:26→19:53)
[2017-04-24] MEDS: SODIUM CHLORIDE 0.9% FLUSH 10 ML FLUSH IVF SCH (08:26)
--- NOTE | 2017-04-24 10:00 | HHI.IDPN ---
Subjective Subjective Remarks Notes reviewed D/W RN Had fever last night, ok this morning Has been doing CPAP trials, did not tolerate this morning On the vent Awake and following some commands WBC down to normal Antibiotics Levaquin Lines PIV Past Medical History ETOHism Allergies: Coded Allergies: PEANUTS (Unverified Allergy, Severe, 03/02/17) *MDRO Multi-Drug Resistant Organism (Verified Adverse Reaction, Unknown, ) MRSA PCR screen POSITIVE - 03/02/17 MDR Acinetobacter (sputum) - 03/25/17 Objective . Vital Signs Date Time Temp Pulse Resp B/P Pulse Ox O2 Delivery O2 Flow Rate FiO2 04/24/17 07:40 98 30 04/24/17 06:00 105 04/24/17 04:02 96 30 04/24/17 04:00 30 04/24/17 04:00 104 04/24/17 04:00 30 04/24/17 04:00 99.2 104 19 110/81 99 04/24/17 02:00 94 04/24/17 00:00 30 04/24/17 00:00 89 04/24/17 00:00 99.1 89 22 98/66 97 04/23/17 23:38 93 30 04/23/17 22:00 100 04/23/17 21:30 94 30 04/23/17 20:00 106 04/23/17 20:00 100.4 106 22 108/75 95 04/23/17 20:00 30 04/23/17 18:15 109 04/23/17 17:00 108 21 107/73 95 04/23/17 16:09 96 30 04/23/17 16:00 35 04/23/17 16:00 108 04/23/17 16:00 104 22 106/75 96 04/23/17 15:00 99.5 104 21 106/73 96 04/23/17 14:00 102 18 101/69 95 04/23/17 14:00 92 04/23/17 13:00 103 20 98/69 96 04/23/17 12:25 106 40 93 04/23/17 12:19 99 04/23/17 12:18 35 04/23/17 12:14 96 30 04/23/17 11:30 99.2 104 34 102/71 95 5/23/17 11:15 104 33 96 04/23/17 11:00 103 34 98/70 95 04/23/17 10:45 104 29 93 04/23/17 10:30 101 27 95 04/23/17 10:15 101 27 96 04/23/17 10:13 93 04/23/17 10:00 100 28 107/72 95 04/23/17 04/23/17 04/24/17 15:00 23:00 07:00 Intake Total 622 ml 1204 ml 539 ml Output Total 375 ml 441 ml 202 ml Balance 247 ml 763 ml 337 ml Intake Oral 0 ml IV Total 111 ml 564 ml 84 ml Tube Feeding 411 ml 540 ml 395 ml Tube Irrigant 100 ml Other 100 ml 60 ml Output Urine Total 275 ml 400 ml 200 ml Stool Total 100 ml 1 ml 2 ml Gastric Drainage Total 40 ml Imaging Chest X-Ray 04/19/17 0600 Signed Impressions: Service Date/Time: Wednesday, April 19, 2017 04:24 - CONCLUSION: 1. Stable basilar airspace disease. Tracheostomy unchanged. Miguel Looney MD Liver Ultrasound 04/15/17 0000 Signed Impressions: Service Date/Time: Saturday, April 15, 2017 09:24 - CONCLUSION: 1. Abnormal appearance of the pancreas with a nonspecific hypoechoic area involving the posterior part of the pancreas along the head and body region. Recommend CT scan of the abdomen with oral and IV contrast further evaluation. 2. Fatty infiltration throughout the liver. 3. There is thickening of the gallbladder wall at 6 mm. This is suggestive of chronic gallbladder disease. 4. Small amount of free fluid adjacent to the liver and spleen in the upper abdomen.. 5. Right-sided pleural effusion. Víctor Rosas MD Chest X-Ray 04/13/17 0600 Signed Impressions: Service Date/Time: Thursday, April 13, 2017 03:50 - CONCLUSION: Stable bilateral scattered pulmonary infiltrates. Víctor Rosas MD Abdomen X-Ray 04/13/17 0000 Signed Impressions: Service Date/Time: Thursday, April 13, 2017 10:36 - CONCLUSION: Dobbhoff tip in distal stomach. No evidence of obstruction. Logan Morgan MD Head CT 04/12/17 0000 Signed Impressions: Service Date/Time: Wednesday, April 12, 2017 21:30 - CONCLUSION: Pontine encephalomalacia. Left mastoiditis. Casper Alva MD Head Magnetic Resonance Angiography 03/28/17 0000 Signed Impressions: Service Date/Time: March 17:22 - CONCLUSION: Unremarkable examination. Bety Castillo MD Brain MRI 03/28/17 0000 Signed Impressions: Service Date/Time: March 17:22 - CONCLUSION: 1. 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 Small subacute ischemic bilateral thalamic infarcts. 2. There has been no significant change when compared to the prior exam. Yinka Harman MD Lower Extremity Ultrasound 03/25/17 0000 Signed Impressions: Service Date/Time: Saturday, March 25, 2017 22:17 - CONCLUSION: No evidence of DVT. Víctor Rosas MD CT Angiography 03/21/17 0000 Signed Impressions: Service Date/Time: March 00:33 - CONCLUSION: No evidence of pulmonary embolism is identified. Mild atelectasis left lung base. Fluid or phlegm within the trachea. Milo Muhammad MD Abdomen Ultrasound 03/20/17 0000 Signed Impressions: Service Date/Time: Monday, March 20, 2017 11:38 - CONCLUSION: 1. Hepatosplenomegaly without focal lesion. 2. Probable sludge within the lumen of the gallbladder. No intrahepatic duct. Cheo Martínez MD Shoulder X-Ray 03/02/17 1404 Signed Impressions: Service Date/Time: Thursday, March 02, 2017 15:18 - CONCLUSION: No evidence of recent bony injury. Deformity of the lateral left clavicle suggests old healed trauma. Cheo Martínez MD Maxillofacial CT 03/02/17 1342 Signed Impressions: Service Date/Time: Thursday, March 02, 2017 14:52 - CONCLUSION: Negative CT of the facial bones. Cheo Martínez MD Chest CT 03/02/17 1342 Signed Impressions: Service Date/Time: Thursday, March 02, 2017 15:04 - CONCLUSION: 1. Abnormal appearance of the lateral left clavicle suggesting a combination of acute and chronic bony injury. Fracture lucencies without bridging callus is seen the region of the coracoid process. 2. The lungs are clear. No evidence of pneumothorax. 3. Moderate size hiatus hernia. Cheo Martínez MD Cervical Spine CT 03/02/17 1342 Signed Impressions: Service Date/Time: Thursday, March 02, 2017 14:52 - CONCLUSION: Negative CT cervical spine. Cheo Martínez MD Abdomen/Pelvis CT 03/02/17 1342 Signed Impressions: Service Date/Time: Thursday, March 02, 2017 15:04 - CONCLUSION: Moderate size hiatus hernia. Scattered small sigmoid diverticula. Otherwise negative exam. Cheo Martínez MD Chest X-Ray 04/08/17 0600 Signed Impressions: Service Date/Time: Saturday, April 08, 2017 05:10 - CONCLUSION: 1. Endotracheal tube and weighted feeding tube. 2. Bilateral pulmonary infiltrates. Some improvement from the prior study. Cheo Barrera Jr., MD Chest X-Ray 03/27/17 0600 Signed Impressions: Service Date/Time: Monday, March 27, 2017 02:33 - CONCLUSION: No significant interval change. Víctor Rosas MD Chest X-Ray 03/26/17 0600 Signed Impressions: Service Date/Time: Sunday, March 26, 2017 05:35 - CONCLUSION: Improving bilateral pulmonary infiltrates Víctor Rosas MD Chest X-Ray 03/25/17 1004 Signed Impressions: Service Date/Time: Saturday, March 25, 2017 10:03 - CONCLUSION: 1. Worsening bibasilar consolidation. 2. Endotracheal tube with tip at the thoracic inlet and should be advanced at least 3-4 cm. 3. Adequate placement of left jugular central line without pneumothorax. Logan Morgan MD Chest X-Ray 03/26/17 0600 Signed Impressions: Service Date/Time: Sunday, March 26, 2017 05:35 - CONCLUSION: Improving bilateral pulmonary infiltrates Víctor Rosas MD Lower Extremity Ultrasound 03/25/17 0000 Signed Impressions: Service Date/Time: Saturday, March 25, 2017 22:17 - CONCLUSION: No evidence of DVT. Víctor Rosas MD CT Angiography 03/21/17 0000 Signed Impressions: Service Date/Time: March 00:33 - CONCLUSION: No evidence of pulmonary embolism is identified. Mild atelectasis left lung base. Fluid or phlegm within the trachea. Milo Muhammad MD Brain MRI 03/20/17 0000 Signed Impressions: Service Date/Time: Monday, March 20, 2017 16:11 - CONCLUSION: Abnormal appearance to the ruthy with some extension into the cortical spinal tracts of the posterior thalamus was bilaterally. 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 Choe Martínez MD Abdomen X-Ray 03/20/17 0000 Signed Impressions: Service Date/Time: Monday, March 20, 2017 18:12 - CONCLUSION: Tip of the Dobbhoff tube projecting towards the pylorus. Cheo Barrera Jr., MD Abdomen Ultrasound 03/20/17 0000 Signed Impressions: Service Date/Time: Monday, March 20, 2017 11:38 - CONCLUSION: 1. Hepatosplenomegaly without focal lesion. 2. Probable sludge within the lumen of the gallbladder. No intrahepatic duct. Cheo Matrínez MD Shoulder X-Ray 03/02/17 1404 Signed Impressions: Service Date/Time: Thursday, March 02, 2017 15:18 - CONCLUSION: No evidence of recent bony injury. Deformity of the lateral left clavicle suggests old healed trauma. Cheo Martínez MD Maxillofacial CT 03/02/17 1342 Signed Impressions: Service Date/Time: Thursday, March 02, 2017 14:52 - CONCLUSION: Negative CT of the facial bones. Cheo Martínez MD Head CT 03/02/17 1342 Signed Impressions: Service Date/Time: Thursday, March 02, 2017 14:52 - CONCLUSION: 1. Prominent scalp swelling left frontal and parietal region. No skull fracture seen. 2. Intracranial contents are intact without acute finding. Cheo Martínez MD Chest CT 03/02/17 1342 Signed Impressions: Service Date/Time: Thursday, March 02, 2017 15:04 - CONCLUSION: 1. Abnormal appearance of the lateral left clavicle suggesting a combination of acute and chronic bony injury. Fracture lucencies without bridging callus is seen the region of the coracoid process. 2. The lungs are clear. No evidence of pneumothorax. 3. Moderate size hiatus hernia. Cheo Martínez MD Cervical Spine CT 03/02/17 1342 Signed Impressions: Service Date/Time: Thursday, March 02, 2017 14:52 - CONCLUSION: Negative CT cervical spine. Cheo Martínez MD Abdomen/Pelvis CT 03/02/17 1342 Signed Impressions: Service Date/Time: Thursday, March 02, 2017 15:04 - CONCLUSION: Moderate size hiatus hernia. Scattered small sigmoid diverticula. Otherwise negative exam. Cheo Martínez MD Chest X-Ray 03/25/17 1004 Signed Impressions: Service Date/Time: Saturday, March 25, 2017 10:03 - CONCLUSION: 1. Worsening bibasilar consolidation. 2. Endotracheal tube with tip at the thoracic inlet and should be advanced at least 3-4 cm. 3. Adequate placement of left jugular central line without pneumothorax. Logan Morgan MD Chest X-Ray 03/23/17 0000 Signed Impressions: Service Date/Time: Thursday, March 23, 2017 14:27 - CONCLUSION: 1. Feeding tube in place with what appears to be a loop in the hypopharynx. 2. Bibasilar areas of consolidation or atelectasis. Casper Vargas MD Physical Exam GENERAL: Awake, focusing, following some commands, on the vent, NAD SKIN: Warm and dry. No generalized rash. HEENT: Pupils equal round and reactive. Poor dentition. A lot of oral secretions NECK: Supple, nontender, no meningeal signs. Previous line site ok. Trach site ok, has light green secretions around it CARDIOVASCULAR: Regular rate and rhythm without murmurs, gallops, or rubs. RESPIRATORY: Scattered rhonchi GASTROINTESTINAL: Abdomen mildly distended, bowel sounds are present and normoactive, not tender. PEG site ok MUSCULOSKELETAL: Lower extremities without clubbing, cyanosis. (+) pedal edema. NEUROLOGICAL: Awake and focusing : Johns cath in place, urine looks better. Scrotum edematous LINE: PIV no evidence of infection Assessment & Plan Remarks IMPRESSION Sepsis syndrome, due to PNA - on vent - has MDR Acinetobacter, S/P RX MDR Acinetobacter PNA - S/P Rx Recurrent fevers, etiology? - intermittent - has UTI - CXR stable infiltrates; atelectasis - ?drug fever (anticonvulsants) Kleb UTI New VAP, has PSAE Septic shock, BP better, off pressors Known ETOH abuse Encephalopathy - sepsis, ETOH, CPM Respiratory failure - S/P trach Diarrhea, C diff negative, volume decreased Seizures, controlled - ?due to CPM - per records had ETOH withdrawal SZ RECOMMENDATION Follow temps Repeat BC with next high temp Monitor progress Weaning as tolerated per CCM ?LTAC - no bed at [facility] currently; spoke with CM Continue Levaquin - plan to complete RX 04/30 D/W Umm Lui MD April 24, 2017 10:00
--- NOTE | 2017-04-24 12:08 | HHI.CCPN ---
Subjective Remarks/Hospital Course This is a 61-year-old male with a past history of alcohol abuse and a prior admission in 2015 for severe life-threatening hyponatremia at that time with a serum sodium of 98. He presents today with what he states is a 13 day history of worsening fatigue and weakness. He is very altered and is very difficult to understand the patient. What I can understand from him, is that at some point during these 13 days he has fallen and hit his face. Otherwise he states he lays on the couch, and has not gotten not much. He states he drinks 1 beer in the morning, and 1 beer in the afternoon. He does endorse taking some Xanax to help him sleep. He denies other drug use. He denies chest pain, shortness of breath, fever, chills, nausea, vomiting, abdominal pain. It is very difficult to get him to answer anymore questions about his medical history. His speech is very slurred and he is trying to talk about how he misses his daughter. Emergency department he was found to have a serum sodium of 99, a bilirubin of 8.9, lactate of 9.8, ammonia of 60, CK of 7000, elevated troponin of 4.9 with a normal MB ratio, creatinine 1.5, serum bicarbonate of 13. His white count is 12 , platelets 112. INR 1.9. His MELD calculates at 26. 4/2: Sodium level rapidly corrected overnight, likely secondary to appropriate correction of severe life-threatening dehydration. NS fluids changed to 1/2NS and correction slowed down significantly. sodium up to 130 this AM. CK downtrending. however, patient remains severely hypotensive requiring Levophed to maintain a map > 65 mmHg. This AM, serum K 1.6 (confirmed). started replacement with 200meq KCl and recheck K. 03/04: persists in vasoplegic distributive shock. afebrile. no evidence of infection. wbc downtrending. persists with severe life-threatening electrolyte derangements. passed swallow eval for nectar thick liquids. sodium stable at 131. ck downtrending. 03/05: persists in distributive shock. echo yesterday with EF 30%, globally decreased function. milrinone added yesterday with improvement in vasopressor requirement. still with multiple electrolyte abnormalities despite very aggressive replacement. very poor appetite. sodium stable at 131, which appears to be around baseline for him, looking back at prior records. also became agitated and delirious yesterday, likely secondary to etoh withdraw. started on Ativan and Librium. 03/06: electrolyte derangements persist. placed on continuous NaPhos infusion x 24h due to severe life-threatening hypophosphatemia. serial K, phos checks. weaning off levophed, milrinone persists. still poor appetite. sodium jumped from 132 to 139, but no significant mental status change, and we did not increase sodium load. 03/07: still requiring high electrolyte replacement. milrinone weaned to 0.375 mcg /kg/min overnight. still doing well with that. delirium persists. 03/08 Remains on milrinone. Electrolyte improving. Remains very lethargic, intermittently follows commands 03/09: Continues to be lethargic but wakes up follows some commands. Remains on milrinone will DC today. T max 100.1, urine output adequate sodium is 143 03/10: More awake alert, ate 50% of break fast. Will DC Dobhoff. Discontinue arterial and central lines. Delirium also improved, remains weak 03/11: doing much better this morning. no complaints. still with poor appetite. electrolytes improved. 03/20: We consulted for respiratory failure. Patient was last seen in room 1415 CMP receiving oral cares and became acutely hypoxic saturations 82% with coarse breath sounds. Halicat called. Patient was placed on a Venturi mask 50 % with desaturations to the mid 90s. He received Solu-Medrol 20 mg IV 1, Lasix 40 mg IV 1 and was transferred IM [facility] 521. Hemodynamically stable. Poor mentation 03/25: Reconsulted due to respiratory failure. Patient with gurgling/ transmitted upper airway sounds. Respiration the 50s. Decision made to orotracheally intubate. Noted to have been febrile with increased O2 course over the past 48 hours. 03/26: Afebrile. Requiring Nimbex drip for ventilator synchrony. Decreased urine output noted. Hemoglobin decreased likely dilutional. Tolerating tube feeding. Electrolytes been replaced. 03/27: Tmax 100.9. Currently 97.2. +6 L past 24 hours. Hemoglobin 8 transfuse overnight. Potassium 3. We'll discontinue Nimbex drip for vent synchrony today. 03/28: Afebrile. Negative fluid balance past 24 hours. Hemoglobin currently 9. Potassium 3.0. Currently on sedation vacation positive gag and otherwise unresponsive. 03/29: Tmax 103. Currently afebrile. Not tolerating tube feeds. Remains on Kiran-Synephrine. Did not tolerate sedation vacation back on Versed at 5 mg an hour fentanyl drip at 100 mcg an hour. One bowel movement. 03/30 Tube feeds remain on hold. On neosynephrine 40 mcg/min, RN states she has been weaning. Having BMs. On Versed 8 mg/hr and fentanyl 100 mcg/hr. 03/31 Off versed. Remains on fentanyl 100 mcg/hr. Having hiccups. Still on neosynephrine 40 mcg/min. Tolerating trickle feeds. Had 2 bowel movements 04/01: no meaningful change. still requires fentanyl for sedation. still on low- dose vasopressors. 04/02: no changes. still on levo @ 7 mcg/min. unable to wean off fentanyl due to tachycardia and tachypnea. 04/03: Off all sedation. On low-dose norepinephrine. Essentially unresponsive on the ventilator. Plan for likely withdrawal of care tomorrow 04/04: Off all sedation. Off all vasopressors. According to overnight RN was following commands. Will open eyes but not following commands this AM. 04/05 No events overnight. Afebrile On no sedation. 04/06: Resting comfortably in bed. Eyes are open. Moving head back and forth continuously. Weakly following commands with his upper and lower extremities. 04/07: Low-grade temperatures overnight. 99.8. Eyes are open. Moving back and forth. Positive BM. Continues to be following commands. 04/08 Patient remains intubated on no sedation awake and follows commands. Tmax 100.8 04/09 Patient remains intubated, tolerated CPAP all day and had good responses in UO with Bumex yesterday. Afebrile. 04/10: Tmax 99.1. Went back on set rate ventilation yesterday. Will attempt PSV trials throughout the day with goal to attempt extubation tomorrow. 04/11: Tmax 100.2. Currently 100.1. Did not tolerate weaning parameters with NIF -9 and unacceptable RSBI. Patient is arousable and follows commands eyes open 04/12: Omayra care reports tonic-clonic seizure activity this AM. Heart rate in the 140s during episode with violent shaking. On examination, patient's eyes are open and at baseline except currently not following commands. 04/13: had 2 seizures this morning, both resolved without medication interventions. Dr. Fabrizio navas'd at bedside earlier and ordered Cerebyx load. no other changes. plan for trach/peg next week 04/14: still having breakthrough seizures on repeat EEG despite Cerebyx and Keppra. plan for PEG tomorrow. 04/15 No events overnight. Remains intubated. On no sedation. For PEG tube placement today. T:101.2 last night. 04/16 Patient remains intubated. For trach this afternoon. s/p PEG tube placement yesterday. Spiked fever with T:102.5 last night. 04/17 Patient s/p trach yesterday. T: 100.3 at midnight. 04/18 Continues to have low-grade fever. No change in mental status. Sputum Pseudomonas pansensitive. No seizures reported in the last 24 hours 04/19: No fever reported. Slightly more awake and was commands on right upper extremity by squeezing hands very weakly. On CPAP 15/04. Slightly tachypneic 04/20: WBC count slightly elevated today, tachypnea on CPAP. Continues to follow commands weakly on right hand. Intermittently about to wiggle toes. Slight increase in white count to 13,000. Tmax 100.9 ID following 04/21: Tolerated only 1 hour CPAP yesterday. Unable to reduce pressure support. Tmax 99.9 04/22: Remains on mechanical ventilation via tracheostomy. Tolerated C Pap trial for 1 hour yesterday. 04/23: Remains on mechanical ventilation via tracheostomy. Daily C Pap trials ongoing. Tolerating tube feeds. Subjective: 04/24: Afebrile. Copious edema//swelling extremities. Decreased urine output noted. Remains on mechanical ventilation via trach acid. Daily C Pap trials ongoing. Positive BM. Objective Vital Signs Date Time Temp Pulse Resp B/P Pulse Ox O2 Delivery O2 Flow Rate FiO2 04/24/17 11:40 98 30 04/24/17 10:00 106 04/24/17 08:00 98.3 18 110/72 Intake and Output 04/23/17 04/23/17 04/23/17 07:59 15:59 23:59 Intake Total 507 ml 622 ml 1204 ml Output Total 500 ml 375 ml 441 ml Balance 7 ml 247 ml 763 ml Result Diagram: 04/22/1751604/22/17516 Imaging Last Impressions Chest X-Ray 04/22/17 0600 Signed Impressions: Service Date/Time: Saturday, April 22, 2017 03:59 - CONCLUSION: No appreciable change. Bety Castillo MD Abdomen/Pelvis CT 04/16/17 0000 Signed Impressions: Service Date/Time: Sunday, April 16, 2017 11:26 - CONCLUSION: 1. Cirrhosis and splenomegaly. 2. Ascites 3. Anasarca 4. No pancreas mass identified Yinka Harman MD Liver Ultrasound 04/15/17 0000 Signed Impressions: Service Date/Time: Saturday, April 15, 2017 09:24 - CONCLUSION: 1. Abnormal appearance of the pancreas with a nonspecific hypoechoic area involving the posterior part of the pancreas along the head and body region. Recommend CT scan of the abdomen with oral and IV contrast further evaluation. 2. Fatty infiltration throughout the liver. 3. There is thickening of the gallbladder wall at 6 mm. This is suggestive of chronic gallbladder disease. 4. Small amount of free fluid adjacent to the liver and spleen in the upper abdomen.. 5. Right-sided pleural effusion. Víctor Rosas MD Abdomen X-Ray 04/13/17 0000 Signed Impressions: Service Date/Time: Thursday, April 13, 2017 10:36 - CONCLUSION: Dobbhoff tip in distal stomach. No evidence of obstruction. Lgoan Morgan MD Head CT 04/12/17 0000 Signed Impressions: Service Date/Time: Wednesday, April 12, 2017 21:30 - CONCLUSION: Pontine encephalomalacia. Left mastoiditis. Casper Alva MD Head Magnetic Resonance Angiography 03/28/17 0000 Signed Impressions: Service Date/Time: March 17:22 - CONCLUSION: Unremarkable examination. Bety Castillo MD Brain MRI 03/28/17 0000 Signed Impressions: Service Date/Time: March 17:22 - CONCLUSION: 1. 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 Small subacute ischemic bilateral thalamic infarcts. 2. There has been no significant change when compared to the prior exam. Yinka Harman MD Lower Extremity Ultrasound 03/25/17 0000 Signed Impressions: Service Date/Time: Saturday, March 25, 2017 22:17 - CONCLUSION: No evidence of DVT. Víctor Rosas MD CT Angiography 03/21/17 0000 Signed Impressions: Service Date/Time: March 00:33 - CONCLUSION: No evidence of pulmonary embolism is identified. Mild atelectasis left lung base. Fluid or phlegm within the trachea. Milo Muhammad MD Abdomen Ultrasound 03/20/17 0000 Signed Impressions: Service Date/Time: Monday, March 20, 2017 11:38 - CONCLUSION: 1. Hepatosplenomegaly without focal lesion. 2. Probable sludge within the lumen of the gallbladder. No intrahepatic duct. Cheo Martínez MD Shoulder X-Ray 03/02/17 1404 Signed Impressions: Service Date/Time: Thursday, March 02, 2017 15:18 - CONCLUSION: No evidence of recent bony injury. Deformity of the lateral left clavicle suggests old healed trauma. Cheo Martínez MD Maxillofacial CT 03/02/17 1342 Signed Impressions: Service Date/Time: Thursday, March 02, 2017 14:52 - CONCLUSION: Negative CT of the facial bones. Cheo Martínez MD Chest CT 03/02/17 1342 Signed Impressions: Service Date/Time: Thursday, March 02, 2017 15:04 - CONCLUSION: 1. Abnormal appearance of the lateral left clavicle suggesting a combination of acute and chronic bony injury. Fracture lucencies without bridging callus is seen the region of the coracoid process. 2. The lungs are clear. No evidence of pneumothorax. 3. Moderate size hiatus hernia. Cheo Martínez MD Cervical Spine CT 03/02/17 1342 Signed Impressions: Service Date/Time: Thursday, March 02, 2017 14:52 - CONCLUSION: Negative CT cervical spine. Cheo Martínez MD Objective Remarks GENERAL: 61-year-old chronically ill appearing male, critically ill. HEENT: Healing abrasion left side scalp. TIMOTHY. Scleral icterus. Poor dentition. NECK: Trachea Midline, Trach without bleed RESP: Coarse breath sounds bilaterally. Occasional and extremities. CARDIOVASCULAR: Tachycardia, RR. S1, S2. No S4. ABDOMEN: Slightly distended but soft, bowel sounds present, tolerating tube feeds. G-tube is clear dry and intact : Johns in place with conrad urine output. mild/moderate scrotal edema. MUSCULOSKELETAL: No obvious deformity. 1+ to 2+ edema all extremities NEUROLOGICAL: Eyes are open spontaneously. Following commands on right upper extremity by squeezing hands very weakly. Wiggles toes very weakly Urinary Catheter: Yes Assessment to: Continue Johns insert reason: Prolonged Immobilization A/P Assessment and Plan Neuro/Psych: Osmotic demyelination syndrome Acute toxic metabolic encephalopathy secondary to hypercarbic respiratory failure Alcohol dependence Seizures (History of EtOH induced seizure withdrawal) Chronic benzodiazepine use Bilateral thalamic CVA Off all sedation. oxycodone 5 mg every 4 hours as needed for pain. Ativan 0.5 mg PRN for sz MRI 03/21 - findings consistent with Osmotic demyelination syndrome. ODS most likely from rapid correction of Na, with underlying alcoholism. ( Patient was profoundly hypotensive in shock requiring multiple pressors at that time) MRI brain 03/28 revealed subacute bilateral thalamic lacunar infarcts, ODS. CT head 03/05 revealed no acute intracranial findings Continue thiamine 100 mg daily Seen by neurology/Dr. Mazariegos. EEG with persistent seizures. continue Keppra 1000mg BID Respiratory: Acute hypoxemic hypercapnic respiratory failure PRVC 18/550/1.2/. Continue with vent support keep sat >92% Ventilator bundle, s/p trach 04/16 Bronchodilator therapy every 6 hours and as needed SBT daily as pablo. Pulm toilet, trach care. TP for 2-4 hours (Unable to place on TP yet due to tachypnea) Tolerated CPAP only 1 hour 04/21/17 Cardiovascular: Chronic Systolic heart failure Echocardiogram 03/04 revealed EF 35-40%. Mild MR. Left atrium dilated. JANE 33 mmHg s/p hydrocortisone. Continue midodrine 10 mg 3 times Monitor HR and BP keep MAP>65mmHg Renal/FEN: Acute Kidney Injury Rhabdomyolysis- resolved ODS-see neuro Hypernatremia Monitor renal function, I/O's, electrolytes replacement per protocol. DC D5/1/2 NS 04/21 GI: EtOH cirrhosis Hyperammonemia Hiatal hernia Sigmoid diverticulosis Hypoalbuminemia Continue tube feeds via PEG tube-(Jevity 1.5 with goal rate 60ml/hr) s/p PEG tube placement 04/15 CT abdomen/pelvis 04/16: Cirrhosis of liver, splenomegaly, anasarca, ascites(mild ) On Xifaxan 550 twice a day/lactulose 30 twice a day. US Liver 04/15: Abnormal appearance of the pancreas with a nonspecific hypoechoic area involving the posterior part of the pancreas along the head and body region. Fatty infiltration throughout the liver. There is thickening of the gallbladder wall at 6 mm. Suggestive of chronic gallbladder disease. Small amount of free fluid adjacent to the liver and spleen in the upper abdomen. Right-sided pleural effusion. 03/20 Ultrasound liver-hepatosplenomegaly. Sludge in gallbladder On IV Protonix Heme: Leukocytosis Macrocytic anemia Monitor CBC. No indications for transfusion of blood proximally postop B12 1452, Folate 15.2. TSH 0.8. ID: Aspiration pneumonia, PSAE in sputum Escherichia coli UTI 03/11 - completed therapy Acinetobacter pneumonia Pertinent cultures 04/15 Sputum cx: PSAE 04/15 urine cx: Klebsiella 04/15 BC: NGTD 04/12 BC: NGTD 04/08 - blood cultures 2 - no growth 04/08 - sputum - no growth 04/05 - urine -C GLABRATA AND C. ALBICANS 03/29 - blood cultures 2 - NGTD 03/25 - sputum --Acinetobacter. 03/25 - urine - NGTD 03/25 - blood cultures 2 -no growth 03/22 - urine - no growth 03/22 - blood cultures 2 - negative 03/20 - blood cultures 2 - no growth 03/11 - urine - Escherichia coli 03/02 - blood cultures 2 - no growth Followed by Dr. Lisa/ID. Changed Zosyn to cefepime 04/17 Levaquin started 04/20/17 by ID. Complete therapy by 04/30/17 Off Flagyl po 03/24 Procalcitonin level: 0.40, C-diff PCR negative 04/10 Endocrine: Hyperglycemia of critical illness History of hypothyroidism SSI with Accu-Cheks every 4 hours to maintain euglycemia MSK: History of old left clavicle fracture PT/OT evaluate and treat Access Peripheral IV. Prophylaxis: GI - Protonix DVT - SCD/heparin subcutaneous Palliative care is following code status changed to full code per daughter's request. Tamanna Sandhu, daughter/ HCP: from [phone] now confirmed transferred to [facility] in [place] facility ) Code status -full code CM working on LTAC placement Level 2 Larry Ruby MD April 24, 2017 12:08
[2017-04-24 13:18] LABS: AUTOMATED NEUTROPHIL # 9.9 TH/MM3 (1.8-7.7); BASOPHIL # 0.2 TH/MM3 (0-0.2); BASOPHIL % 1.5 % (0.0-2.0); EOSINOPHIL # 0.2 TH/MM3 (0-0.4); EOSINOPHIL % 1.8 % (0.0-4.0); HEMATOCRIT 30.1 % (39.0-51.0); HEMO FLAGS DIFF FINAL; LYMPH % 11.9 % (9.0-44.0); LYMPHOCYTE # 1.5 TH/MM3 (1.0-4.8); MEAN CELL VOLUME 99.8 FL (80.0-100.0); MEAN CORPUSCULAR HEMOGLOBIN 32.1 PG (27.0-34.0); MEAN CORPUSCULAR HGB CONC 32.2 % (32.0-36.0); MONO % 5.6 % (0.0-8.0); NEUT % 79.2 % (16.0-70.0); PLATELET COUNT 187 TH/MM3 (150-450); RED BLOOD COUNT 3.02 MIL/MM3 (4.50-5.90); RED CELL DISTRIBUTION WIDTH 15.9 % (11.6-17.2); WHITE BLOOD COUNT 12.5 TH/MM3 (4.0-11.0)
[2017-04-24 13:26] LABS: ALT (GPT) 90 U/L (12-78); ANION GAP 9 MEQ/L (5-15); AST (GOT) 195 U/L (15-37); BICARBONATE 23.4 MEQ/L (21.0-32.0); BLOOD UREA NITROGEN 16 MG/DL (7-18); CHLORIDE 109 MEQ/L (98-107); GLOMERULAR FILTRATION RATE 285 ML/MIN (>89); MAGNESIUM 1.8 MG/DL (1.5-2.5); POTASSIUM 4.1 MEQ/L (3.5-5.1); SODIUM (NA) 141 MEQ/L (136-145)
[2017-04-24 13:27] LABS: ALKALINE PHOSPHATASE 533 U/L (45-117); TOTAL BILIRUBIN ADULT 0.9 MG/DL (0.2-1.0)
[2017-04-24] MEDS: MAGNESIUM SULFATE 1 GM PREMIX 100 ML IV SCH ×2 (13:59→15:58)
[2017-04-24] MEDS ORDERED: BUMETANIDE INJ 1 MG/4 ML VIAL IV PUSH ONE (14:00)
[2017-04-24] MEDS ORDERED: POTASSIUM CHLORIDE 20 MEQ PWD PACKET PO ONE (14:00)
[2017-04-24] MEDS ORDERED: LACTATED RINGER'S 1000 ML INJ 1,000 ML IV ONE (14:00)
[2017-04-24] MEDS: ALBUMIN HUMAN 25% 25 GM/100 ML BAGP IV SCH (17:55)
[2017-04-25] VITALS (19 sets, daily range): BP systolic 104–131; BP diastolic 65–81; PULSE 90–99; RESP 18–24; TEMP 98.7–99.6; O2SAT 90–98
[2017-04-25] MEDS: ALBUMIN HUMAN 25% 25 GM/100 ML BAGP IV SCH ×5 (00:45→22:46)
[2017-04-25] MEDS: INSULIN NovoLIN REGULAR SUPPLEMENTAL SCALE SQ SCH ×6 (04:00→20:05)
[2017-04-25] MEDS: MIDODRINE 5 MG TAB PO SCH ×3 (04:24→20:27)
[2017-04-25] MEDS: ARTIFICIAL TEARS OPTH SOLN 15 ML BTL EACH EYE SCH ×3 (08:45→17:17)
[2017-04-25] MEDS: NYSTATIN 100,000 U/GM PWD 15 GM BTL TOPICAL SCH ×2 (08:45→20:27)
[2017-04-25] MEDS: PANTOPRAZOLE SODIUM 40 MG VIAL IV SCH (08:46)
[2017-04-25] MEDS: CHLORHEXIDINE 0.12% (ORAL KIT) 15 ML CUP MT SCH ×2 (08:46→19:34)
[2017-04-25] MEDS: LACTOBACILLUS ACIDOPHILUS TAB PO SCH ×3 (08:46→17:16)
[2017-04-25] MEDS: MUPIROCIN 2% OINT 1 APPLIC/GM SYR EACH NARE SCH ×2 (08:46→19:33)
[2017-04-25] MEDS: LEVOFLOXACIN 750 MG TAB PO SCH (08:47)
[2017-04-25] MEDS: RIFAXIMIN 550 MG TAB PO SCH ×2 (08:47→20:27)
[2017-04-25] MEDS: THIAMINE HCL 100 MG TAB PO SCH (08:47)
[2017-04-25] MEDS: SODIUM CHLORIDE 0.9% FLUSH 10 ML FLUSH IV FLUSH SCH ×2 (08:47→20:05)
[2017-04-25] MEDS: LACTULOSE SYRUP 20 GM/30 ML CUP PO SCH ×2 (08:47→20:27)
[2017-04-25] MEDS: levETIRAcetam 1000 MG INJ 100 ML IV SCH ×2 (08:48→20:27)
[2017-04-25] MEDS: SODIUM CHLORIDE 0.9% FLUSH 10 ML FLUSH IVF SCH (08:48)
--- NOTE | 2017-04-25 09:57 | HHI.IDPN ---
Subjective Subjective Remarks Notes reviewed D/W RN Temps better Has not been tolerating CPAP trials On the vent Awake and following some commands Antibiotics Levaquin Lines PIV Past Medical History ETOHism Allergies: Coded Allergies: PEANUTS (Unverified Allergy, Severe, 03/02/17) *MDRO Multi-Drug Resistant Organism (Verified Adverse Reaction, Unknown, ) MRSA PCR screen POSITIVE - 03/02/17 MDR Acinetobacter (sputum) - 03/25/17 Objective . Vital Signs Date Time Temp Pulse Resp B/P Pulse Ox O2 Delivery O2 Flow Rate FiO2 04/25/17 08:12 96 30 04/25/17 08:12 30 04/25/17 06:00 91 04/25/17 04:09 95 30 04/25/17 04:00 93 04/25/17 04:00 30 04/25/17 04:00 98.8 93 22 118/81 98 04/25/17 02:00 96 04/25/17 01:06 97 30 04/25/17 00:00 30 04/25/17 00:00 97 04/25/17 00:00 98.9 97 24 104/65 90 04/24/17 22:10 97 30 04/24/17 22:00 93 04/24/17 20:00 97 04/24/17 20:00 99.1 97 20 105/68 98 04/24/17 20:00 30 04/24/17 19:37 97 30 04/24/17 16:00 99.1 97 19 102/66 96 04/24/17 16:00 30 04/24/17 15:43 97 30 04/24/17 14:30 30 04/24/17 12:00 99.6 103 26 103/68 97 04/24/17 12:00 30 04/24/17 12:00 103 04/24/17 11:40 98 30 04/24/17 10:40 30 04/24/17 10:00 106 04/24/17 04/24/17 04/25/17 15:00 23:00 07:00 Intake Total 755 ml 944 ml 1027 ml Output Total 295 ml 700 ml 200 ml Balance 460 ml 244 ml 827 ml Intake Oral 0 ml IV Total 210 ml 321 ml Tube Feeding 395 ml 423 ml 627 ml Albumin 200 ml Other 150 ml 200 ml 200 ml Output Urine Total 195 ml 700 ml 200 ml Stool Total 100 ml . Laboratory Tests Test 04/24/17 12:44 White Blood Count 12.5 TH/MM3 Red Blood Count 3.02 MIL/MM3 Hemoglobin 9.7 GM/DL Hematocrit 30.1 % Mean Corpuscular Volume 99.8 FL Mean Corpuscular Hemoglobin 32.1 PG Mean Corpuscular Hemoglobin 32.2 % Concent Red Cell Distribution Width 15.9 % Platelet Count 187 TH/MM3 Mean Platelet Volume 9.4 FL Neutrophils (%) (Auto) 79.2 % Lymphocytes (%) (Auto) 11.9 % Monocytes (%) (Auto) 5.6 % Eosinophils (%) (Auto) 1.8 % Basophils (%) (Auto) 1.5 % Neutrophils # (Auto) 9.9 TH/MM3 Lymphocytes # (Auto) 1.5 TH/MM3 Monocytes # (Auto) 0.7 TH/MM3 Eosinophils # (Auto) 0.2 TH/MM3 Basophils # (Auto) 0.2 TH/MM3 CBC Comment DIFF FINAL Differential Comment Hematology Comments Laboratory Tests Test 04/24/17 12:44 Sodium Level 141 MEQ/L Potassium Level 4.1 MEQ/L Chloride Level 109 MEQ/L Carbon Dioxide Level 23.4 MEQ/L Anion Gap 9 MEQ/L Blood Urea Nitrogen 16 MG/DL Creatinine 0.32 MG/DL Estimat Glomerular Filtration 285 ML/MIN Rate Random Glucose 113 MG/DL Calcium Level 8.1 MG/DL Phosphorus Level 2.6 MG/DL Magnesium Level 1.8 MG/DL Total Bilirubin 0.9 MG/DL Aspartate Amino Transf 195 U/L (AST/SGOT) Alanine Aminotransferase 90 U/L (ALT/SGPT) Alkaline Phosphatase 533 U/L Total Protein 5.8 GM/DL Albumin 1.3 GM/DL Imaging Chest X-Ray 04/19/17 0600 Signed Impressions: Service Date/Time: Wednesday, April 19, 2017 04:24 - CONCLUSION: 1. Stable basilar airspace disease. Tracheostomy unchanged. Miguel Looney MD Liver Ultrasound 04/15/17 0000 Signed Impressions: Service Date/Time: Saturday, April 15, 2017 09:24 - CONCLUSION: 1. Abnormal appearance of the pancreas with a nonspecific hypoechoic area involving the posterior part of the pancreas along the head and body region. Recommend CT scan of the abdomen with oral and IV contrast further evaluation. 2. Fatty infiltration throughout the liver. 3. There is thickening of the gallbladder wall at 6 mm. This is suggestive of chronic gallbladder disease. 4. Small amount of free fluid adjacent to the liver and spleen in the upper abdomen.. 5. Right-sided pleural effusion. Víctor Rosas MD Chest X-Ray 04/13/17 0600 Signed Impressions: Service Date/Time: Thursday, April 13, 2017 03:50 - CONCLUSION: Stable bilateral scattered pulmonary infiltrates. Víctor Rosas MD Abdomen X-Ray 04/13/17 0000 Signed Impressions: Service Date/Time: Thursday, April 13, 2017 10:36 - CONCLUSION: Dobbhoff tip in distal stomach. No evidence of obstruction. Logan Morgan MD Head CT 04/12/17 0000 Signed Impressions: Service Date/Time: Wednesday, April 12, 2017 21:30 - CONCLUSION: Pontine encephalomalacia. Left mastoiditis. Casper Alva MD Head Magnetic Resonance Angiography 03/28/17 0000 Signed Impressions: Service Date/Time: March 17:22 - CONCLUSION: Unremarkable examination. Bety Castillo MD Brain MRI 03/28/17 0000 Signed Impressions: Service Date/Time: March 17:22 - CONCLUSION: 1. 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 Small subacute ischemic bilateral thalamic infarcts. 2. There has been no significant change when compared to the prior exam. Yinka Harman MD Lower Extremity Ultrasound 03/25/17 0000 Signed Impressions: Service Date/Time: Saturday, March 25, 2017 22:17 - CONCLUSION: No evidence of DVT. Víctor Rosas MD CT Angiography 03/21/17 0000 Signed Impressions: Service Date/Time: March 00:33 - CONCLUSION: No evidence of pulmonary embolism is identified. Mild atelectasis left lung base. Fluid or phlegm within the trachea. Milo Muhammad MD Abdomen Ultrasound 03/20/17 0000 Signed Impressions: Service Date/Time: Monday, March 20, 2017 11:38 - CONCLUSION: 1. Hepatosplenomegaly without focal lesion. 2. Probable sludge within the lumen of the gallbladder. No intrahepatic duct. Cheo Martínez MD Shoulder X-Ray 03/02/17 1404 Signed Impressions: Service Date/Time: Thursday, March 02, 2017 15:18 - CONCLUSION: No evidence of recent bony injury. Deformity of the lateral left clavicle suggests old healed trauma. Cheo Martínez MD Maxillofacial CT 03/02/17 1342 Signed Impressions: Service Date/Time: Thursday, March 02, 2017 14:52 - CONCLUSION: Negative CT of the facial bones. Cheo Martínez MD Chest CT 03/02/17 1342 Signed Impressions: Service Date/Time: Thursday, March 02, 2017 15:04 - CONCLUSION: 1. Abnormal appearance of the lateral left clavicle suggesting a combination of acute and chronic bony injury. Fracture lucencies without bridging callus is seen the region of the coracoid process. 2. The lungs are clear. No evidence of pneumothorax. 3. Moderate size hiatus hernia. Cheo Martínez MD Cervical Spine CT 03/02/17 1342 Signed Impressions: Service Date/Time: Thursday, March 02, 2017 14:52 - CONCLUSION: Negative CT cervical spine. Cheo Martínez MD Abdomen/Pelvis CT 03/02/17 1342 Signed Impressions: Service Date/Time: Thursday, March 02, 2017 15:04 - CONCLUSION: Moderate size hiatus hernia. Scattered small sigmoid diverticula. Otherwise negative exam. Cheo Martínez MD Chest X-Ray 04/08/17 0600 Signed Impressions: Service Date/Time: Saturday, April 08, 2017 05:10 - CONCLUSION: 1. Endotracheal tube and weighted feeding tube. 2. Bilateral pulmonary infiltrates. Some improvement from the prior study. Cheo Barrera Jr., MD Chest X-Ray 03/27/17 0600 Signed Impressions: Service Date/Time: Monday, March 27, 2017 02:33 - CONCLUSION: No significant interval change. Víctor Rosas MD Chest X-Ray 03/26/17 0600 Signed Impressions: Service Date/Time: Sunday, March 26, 2017 05:35 - CONCLUSION: Improving bilateral pulmonary infiltrates Víctor Rosas MD Chest X-Ray 03/25/17 1004 Signed Impressions: Service Date/Time: Saturday, March 25, 2017 10:03 - CONCLUSION: 1. Worsening bibasilar consolidation. 2. Endotracheal tube with tip at the thoracic inlet and should be advanced at least 3-4 cm. 3. Adequate placement of left jugular central line without pneumothorax. Logan Morgan MD Chest X-Ray 03/26/17 0600 Signed Impressions: Service Date/Time: Sunday, March 26, 2017 05:35 - CONCLUSION: Improving bilateral pulmonary infiltrates Víctor Rosas MD Lower Extremity Ultrasound 03/25/17 0000 Signed Impressions: Service Date/Time: Saturday, March 25, 2017 22:17 - CONCLUSION: No evidence of DVT. Víctor Rosas MD CT Angiography 03/21/17 0000 Signed Impressions: Service Date/Time: March 00:33 - CONCLUSION: No evidence of pulmonary embolism is identified. Mild atelectasis left lung base. Fluid or phlegm within the trachea. Milo Muhammad MD Brain MRI 03/20/17 0000 Signed Impressions: Service Date/Time: Monday, March 20, 2017 16:11 - CONCLUSION: Abnormal appearance to the ruthy with some extension into the cortical spinal tracts of the posterior thalamus was bilaterally. 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 Cheo Martínez MD Abdomen X-Ray 03/20/17 0000 Signed Impressions: Service Date/Time: Monday, March 20, 2017 18:12 - CONCLUSION: Tip of the Dobbhoff tube projecting towards the pylorus. Cheo Barrera Jr., MD Abdomen Ultrasound 03/20/17 0000 Signed Impressions: Service Date/Time: Monday, March 20, 2017 11:38 - CONCLUSION: 1. Hepatosplenomegaly without focal lesion. 2. Probable sludge within the lumen of the gallbladder. No intrahepatic duct. Cheo Martínez MD Shoulder X-Ray 03/02/17 1404 Signed Impressions: Service Date/Time: Thursday, March 02, 2017 15:18 - CONCLUSION: No evidence of recent bony injury. Deformity of the lateral left clavicle suggests old healed trauma. Cheo Martínez MD Maxillofacial CT 03/02/17 1342 Signed Impressions: Service Date/Time: Thursday, March 02, 2017 14:52 - CONCLUSION: Negative CT of the facial bones. Cheo Martínez MD Head CT 03/02/17 1342 Signed Impressions: Service Date/Time: Thursday, March 02, 2017 14:52 - CONCLUSION: 1. Prominent scalp swelling left frontal and parietal region. No skull fracture seen. 2. Intracranial contents are intact without acute finding. Cheo Martínez MD Chest CT 03/02/17 1342 Signed Impressions: Service Date/Time: Thursday, March 02, 2017 15:04 - CONCLUSION: 1. Abnormal appearance of the lateral left clavicle suggesting a combination of acute and chronic bony injury. Fracture lucencies without bridging callus is seen the region of the coracoid process. 2. The lungs are clear. No evidence of pneumothorax. 3. Moderate size hiatus hernia. Cheo Martínez MD Cervical Spine CT 03/02/17 1342 Signed Impressions: Service Date/Time: Thursday, March 02, 2017 14:52 - CONCLUSION: Negative CT cervical spine. Cheo Martínez MD Abdomen/Pelvis CT 03/02/17 1342 Signed Impressions: Service Date/Time: Thursday, March 02, 2017 15:04 - CONCLUSION: Moderate size hiatus hernia. Scattered small sigmoid diverticula. Otherwise negative exam. Cheo Martínez MD Chest X-Ray 03/25/17 1004 Signed Impressions: Service Date/Time: Saturday, March 25, 2017 10:03 - CONCLUSION: 1. Worsening bibasilar consolidation. 2. Endotracheal tube with tip at the thoracic inlet and should be advanced at least 3-4 cm. 3. Adequate placement of left jugular central line without pneumothorax. Logan Morgan MD Chest X-Ray 03/23/17 0000 Signed Impressions: Service Date/Time: Thursday, March 23, 2017 14:27 - CONCLUSION: 1. Feeding tube in place with what appears to be a loop in the hypopharynx. 2. Bibasilar areas of consolidation or atelectasis. Casper Vargas MD Physical Exam GENERAL: Awakens easily, focusing, following some commands, on the vent, NAD SKIN: Warm and dry. No generalized rash. HEENT: Pupils equal round and reactive. Poor dentition. A lot of oral secretions NECK: Supple, nontender, no meningeal signs. Previous line site ok. Trach site ok, has light green secretions around it CARDIOVASCULAR: Regular rate and rhythm without murmurs, gallops, or rubs. RESPIRATORY: Scattered rhonchi GASTROINTESTINAL: Abdomen mildly distended, bowel sounds are present and normoactive, not tender. PEG site ok MUSCULOSKELETAL: Lower extremities without clubbing, cyanosis. (+) pedal edema. NEUROLOGICAL: Awake and focusing : Johns cath in place, urine looks better. Scrotum edematous LINE: PIV no evidence of infection Assessment & Plan Remarks IMPRESSION Sepsis syndrome, due to PNA, improving - on vent - has MDR Acinetobacter, S/P RX MDR Acinetobacter PNA - S/P Rx Recurrent fevers, etiology? - intermittent - has UTI - CXR stable infiltrates; atelectasis - ?drug fever (anticonvulsants) Kleb UTI New VAP, has PSAE Septic shock, BP better, off pressors Known ETOH abuse Encephalopathy - sepsis, ETOH, CPM Respiratory failure - S/P trach Diarrhea, C diff negative, volume decreased Seizures, controlled - ?due to CPM - per records had ETOH withdrawal SZ RECOMMENDATION Follow temps Monitor progress Weaning as tolerated per CCM Being evaluated for LTAC Continue Levaquin - plan to complete RX 04/30 D/W Umm Lui MD April 25, 2017 09:57
--- NOTE | 2017-04-25 12:48 | HHI.CCPN ---
Subjective Remarks/Hospital Course This is a 61-year-old male with a past history of alcohol abuse and a prior admission in 2015 for severe life-threatening hyponatremia at that time with a serum sodium of 98. He presents today with what he states is a 13 day history of worsening fatigue and weakness. He is very altered and is very difficult to understand the patient. What I can understand from him, is that at some point during these 13 days he has fallen and hit his face. Otherwise he states he lays on the couch, and has not gotten not much. He states he drinks 1 beer in the morning, and 1 beer in the afternoon. He does endorse taking some Xanax to help him sleep. He denies other drug use. He denies chest pain, shortness of breath, fever, chills, nausea, vomiting, abdominal pain. It is very difficult to get him to answer anymore questions about his medical history. His speech is very slurred and he is trying to talk about how he misses his daughter. Emergency department he was found to have a serum sodium of 99, a bilirubin of 8.9, lactate of 9.8, ammonia of 60, CK of 7000, elevated troponin of 4.9 with a normal MB ratio, creatinine 1.5, serum bicarbonate of 13. His white count is 12 , platelets 112. INR 1.9. His MELD calculates at 26. 4/2: Sodium level rapidly corrected overnight, likely secondary to appropriate correction of severe life-threatening dehydration. NS fluids changed to 1/2NS and correction slowed down significantly. sodium up to 130 this AM. CK downtrending. however, patient remains severely hypotensive requiring Levophed to maintain a map > 65 mmHg. This AM, serum K 1.6 (confirmed). started replacement with 200meq KCl and recheck K. 03/04: persists in vasoplegic distributive shock. afebrile. no evidence of infection. wbc downtrending. persists with severe life-threatening electrolyte derangements. passed swallow eval for nectar thick liquids. sodium stable at 131. ck downtrending. 03/05: persists in distributive shock. echo yesterday with EF 30%, globally decreased function. milrinone added yesterday with improvement in vasopressor requirement. still with multiple electrolyte abnormalities despite very aggressive replacement. very poor appetite. sodium stable at 131, which appears to be around baseline for him, looking back at prior records. also became agitated and delirious yesterday, likely secondary to etoh withdraw. started on Ativan and Librium. 03/06: electrolyte derangements persist. placed on continuous NaPhos infusion x 24h due to severe life-threatening hypophosphatemia. serial K, phos checks. weaning off levophed, milrinone persists. still poor appetite. sodium jumped from 132 to 139, but no significant mental status change, and we did not increase sodium load. 03/07: still requiring high electrolyte replacement. milrinone weaned to 0.375 mcg /kg/min overnight. still doing well with that. delirium persists. 03/08 Remains on milrinone. Electrolyte improving. Remains very lethargic, intermittently follows commands 03/09: Continues to be lethargic but wakes up follows some commands. Remains on milrinone will DC today. T max 100.1, urine output adequate sodium is 143 03/10: More awake alert, ate 50% of break fast. Will DC Dobhoff. Discontinue arterial and central lines. Delirium also improved, remains weak 03/11: doing much better this morning. no complaints. still with poor appetite. electrolytes improved. 03/20: We consulted for respiratory failure. Patient was last seen in room 1415 CMP receiving oral cares and became acutely hypoxic saturations 82% with coarse breath sounds. Halicat called. Patient was placed on a Venturi mask 50 % with desaturations to the mid 90s. He received Solu-Medrol 20 mg IV 1, Lasix 40 mg IV 1 and was transferred [facility] 521. Hemodynamically stable. Poor mentation 03/25: Reconsulted due to respiratory failure. Patient with gurgling/ transmitted upper airway sounds. Respiration the 50s. Decision made to orotracheally intubate. Noted to have been febrile with increased O2 course over the past 48 hours. 03/26: Afebrile. Requiring Nimbex drip for ventilator synchrony. Decreased urine output noted. Hemoglobin decreased likely dilutional. Tolerating tube feeding. Electrolytes been replaced. 03/27: Tmax 100.9. Currently 97.2. +6 L past 24 hours. Hemoglobin 8 transfuse overnight. Potassium 3. We'll discontinue Nimbex drip for vent synchrony today. 03/28: Afebrile. Negative fluid balance past 24 hours. Hemoglobin currently 9. Potassium 3.0. Currently on sedation vacation positive gag and otherwise unresponsive. 03/29: Tmax 103. Currently afebrile. Not tolerating tube feeds. Remains on Kiran-Synephrine. Did not tolerate sedation vacation back on Versed at 5 mg an hour fentanyl drip at 100 mcg an hour. One bowel movement. 03/30 Tube feeds remain on hold. On neosynephrine 40 mcg/min, RN states she has been weaning. Having BMs. On Versed 8 mg/hr and fentanyl 100 mcg/hr. 03/31 Off versed. Remains on fentanyl 100 mcg/hr. Having hiccups. Still on neosynephrine 40 mcg/min. Tolerating trickle feeds. Had 2 bowel movements 04/01: no meaningful change. still requires fentanyl for sedation. still on low- dose vasopressors. 04/02: no changes. still on levo @ 7 mcg/min. unable to wean off fentanyl due to tachycardia and tachypnea. 04/03: Off all sedation. On low-dose norepinephrine. Essentially unresponsive on the ventilator. Plan for likely withdrawal of care tomorrow 04/04: Off all sedation. Off all vasopressors. According to overnight RN was following commands. Will open eyes but not following commands this AM. 04/05 No events overnight. Afebrile On no sedation. 04/06: Resting comfortably in bed. Eyes are open. Moving head back and forth continuously. Weakly following commands with his upper and lower extremities. 04/07: Low-grade temperatures overnight. 99.8. Eyes are open. Moving back and forth. Positive BM. Continues to be following commands. 04/08 Patient remains intubated on no sedation awake and follows commands. Tmax 100.8 04/09 Patient remains intubated, tolerated CPAP all day and had good responses in UO with Bumex yesterday. Afebrile. 04/10: Tmax 99.1. Went back on set rate ventilation yesterday. Will attempt PSV trials throughout the day with goal to attempt extubation tomorrow. 04/11: Tmax 100.2. Currently 100.1. Did not tolerate weaning parameters with NIF -9 and unacceptable RSBI. Patient is arousable and follows commands eyes open 04/12: Omayra care reports tonic-clonic seizure activity this AM. Heart rate in the 140s during episode with violent shaking. On examination, patient's eyes are open and at baseline except currently not following commands. 04/13: had 2 seizures this morning, both resolved without medication interventions. Dr. Fabrizio navas'd at bedside earlier and ordered Cerebyx load. no other changes. plan for trach/peg next week 04/14: still having breakthrough seizures on repeat EEG despite Cerebyx and Keppra. plan for PEG tomorrow. 04/15 No events overnight. Remains intubated. On no sedation. For PEG tube placement today. T:101.2 last night. 04/16 Patient remains intubated. For trach this afternoon. s/p PEG tube placement yesterday. Spiked fever with T:102.5 last night. 04/17 Patient s/p trach yesterday. T: 100.3 at midnight. 04/18 Continues to have low-grade fever. No change in mental status. Sputum Pseudomonas pansensitive. No seizures reported in the last 24 hours 04/19: No fever reported. Slightly more awake and was commands on right upper extremity by squeezing hands very weakly. On CPAP 15/04. Slightly tachypneic 04/20: WBC count slightly elevated today, tachypnea on CPAP. Continues to follow commands weakly on right hand. Intermittently about to wiggle toes. Slight increase in white count to 13,000. Tmax 100.9 ID following 04/21: Tolerated only 1 hour CPAP yesterday. Unable to reduce pressure support. Tmax 99.9 04/22: Remains on mechanical ventilation via tracheostomy. Tolerated C Pap trial for 1 hour yesterday. 04/23: Remains on mechanical ventilation via tracheostomy. Daily C Pap trials ongoing. Tolerating tube feeds. 04/24: Afebrile. Copious edema//swelling extremities. Decreased urine output noted. Remains on mechanical ventilation via trach acid. Daily C Pap trials ongoing. Positive BM. Subjective: 04/25: Tmax 99.5. With copious edema. Will give 1 additional dose of Bumex today after albumin. Remains on ventilator via tracheostomy. Ongoing CPAP trials. Objective Vital Signs Date Time Temp Pulse Resp B/P Pulse Ox O2 Delivery O2 Flow Rate FiO2 04/25/17 12:00 30 04/25/17 12:00 99.4 93 19 106/77 96 Intake and Output 04/24/17 04/24/17 04/25/17 08:00 16:00 00:00 Intake Total 539 ml 755 ml 944 ml Output Total 202 ml 295 ml 700 ml Balance 337 ml 460 ml 244 ml Result Diagram: 04/24/17 1244 04/24/17 1244 Imaging Last Impressions Chest X-Ray 04/22/17 0600 Signed Impressions: Service Date/Time: Saturday, April 22, 2017 03:59 - CONCLUSION: No appreciable change. Bety Castillo MD Abdomen/Pelvis CT 04/16/17 0000 Signed Impressions: Service Date/Time: Sunday, April 16, 2017 11:26 - CONCLUSION: 1. Cirrhosis and splenomegaly. 2. Ascites 3. Anasarca 4. No pancreas mass identified Yinka Harman MD Liver Ultrasound 04/15/17 0000 Signed Impressions: Service Date/Time: Saturday, April 15, 2017 09:24 - CONCLUSION: 1. Abnormal appearance of the pancreas with a nonspecific hypoechoic area involving the posterior part of the pancreas along the head and body region. Recommend CT scan of the abdomen with oral and IV contrast further evaluation. 2. Fatty infiltration throughout the liver. 3. There is thickening of the gallbladder wall at 6 mm. This is suggestive of chronic gallbladder disease. 4. Small amount of free fluid adjacent to the liver and spleen in the upper abdomen.. 5. Right-sided pleural effusion. Víctor Rosas MD Abdomen X-Ray 04/13/17 0000 Signed Impressions: Service Date/Time: Thursday, April 13, 2017 10:36 - CONCLUSION: Dobbhoff tip in distal stomach. No evidence of obstruction. Logan Morgan MD Head CT 04/12/17 0000 Signed Impressions: Service Date/Time: Wednesday, April 12, 2017 21:30 - CONCLUSION: Pontine encephalomalacia. Left mastoiditis. Casper Alva MD Head Magnetic Resonance Angiography 03/28/17 0000 Signed Impressions: Service Date/Time: March 17:22 - CONCLUSION: Unremarkable examination. Bety Castillo MD Brain MRI 03/28/17 0000 Signed Impressions: Service Date/Time: March 17:22 - CONCLUSION: 1. 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 Small subacute ischemic bilateral thalamic infarcts. 2. There has been no significant change when compared to the prior exam. Yinka Hamran MD Lower Extremity Ultrasound 03/25/17 0000 Signed Impressions: Service Date/Time: Saturday, March 25, 2017 22:17 - CONCLUSION: No evidence of DVT. Víctor Rosas MD CT Angiography 03/21/17 0000 Signed Impressions: Service Date/Time: March 00:33 - CONCLUSION: No evidence of pulmonary embolism is identified. Mild atelectasis left lung base. Fluid or phlegm within the trachea. Milo Muhammad MD Abdomen Ultrasound 03/20/17 0000 Signed Impressions: Service Date/Time: Monday, March 20, 2017 11:38 - CONCLUSION: 1. Hepatosplenomegaly without focal lesion. 2. Probable sludge within the lumen of the gallbladder. No intrahepatic duct. Cheo Martínez MD Shoulder X-Ray 03/02/17 1404 Signed Impressions: Service Date/Time: Thursday, March 02, 2017 15:18 - CONCLUSION: No evidence of recent bony injury. Deformity of the lateral left clavicle suggests old healed trauma. Cheo Martínez MD Maxillofacial CT 03/02/17 1342 Signed Impressions: Service Date/Time: Thursday, March 02, 2017 14:52 - CONCLUSION: Negative CT of the facial bones. Cheo Martínez MD Chest CT 03/02/17 1342 Signed Impressions: Service Date/Time: Thursday, March 02, 2017 15:04 - CONCLUSION: 1. Abnormal appearance of the lateral left clavicle suggesting a combination of acute and chronic bony injury. Fracture lucencies without bridging callus is seen the region of the coracoid process. 2. The lungs are clear. No evidence of pneumothorax. 3. Moderate size hiatus hernia. Cheo Martínez MD Cervical Spine CT 03/02/17 1342 Signed Impressions: Service Date/Time: Thursday, March 02, 2017 14:52 - CONCLUSION: Negative CT cervical spine. Cheo Martínez MD Objective Remarks GENERAL: 61-year-old chronically ill appearing male, critically ill. HEENT: Healing abrasion left side scalp. TIMOTHY. Scleral icterus. Poor dentition. NECK: Trachea Midline, Trach without bleed RESP: Coarse breath sounds bilaterally. Occasional and extremities. CARDIOVASCULAR: Tachycardia, RR. S1, S2. No S4. ABDOMEN: Slightly distended but soft, bowel sounds present, tolerating tube feeds. G-tube is clear dry and intact : Johns in place with conrad urine output. mild/moderate scrotal edema. MUSCULOSKELETAL: No obvious deformity. 1+ to 2+ edema all extremities NEUROLOGICAL: Eyes are open spontaneously. Following commands on right upper extremity by squeezing hands very weakly. Wiggles toes very weakly Urinary Catheter: Yes Assessment to: Continue Johns insert reason: Prolonged Immobilization Vascular Central Line Catheter: No Assessment to: Continue A/P Assessment and Plan Neuro/Psych: Osmotic demyelination syndrome Acute toxic metabolic encephalopathy secondary to hypercarbic respiratory failure Alcohol dependence Seizures (History of EtOH induced seizure withdrawal) Chronic benzodiazepine use Bilateral thalamic CVA Off all sedation. oxycodone 5 mg every 4 hours as needed for pain. Ativan 0.5 mg PRN for sz MRI 03/21 - findings consistent with Osmotic demyelination syndrome. ODS most likely from rapid correction of Na, with underlying alcoholism. ( Patient was profoundly hypotensive in shock requiring multiple pressors at that time) MRI brain 03/28 revealed subacute bilateral thalamic lacunar infarcts, ODS. CT head 03/05 revealed no acute intracranial findings Continue thiamine 100 mg daily Seen by neurology/Dr. Mazariegos. EEG with persistent seizures. continue Keppra 1000mg BID Respiratory: Acute hypoxemic hypercapnic respiratory failure PRVC 18/550/1.2/. Continue with vent support keep sat >92% Ventilator bundle, s/p trach 04/16 Bronchodilator therapy every 6 hours and as needed SBT daily as pablo. Pulm toilet, trach care. TP for 2-4 hours (Unable to place on TP yet due to tachypnea) Tolerated CPAP only 1 hour 04/21/17 Cardiovascular: Chronic Systolic heart failure Echocardiogram 03/04 revealed EF 35-40%. Mild MR. Left atrium dilated. JANE 33 mmHg s/p hydrocortisone. Continue midodrine 10 mg 3 times Monitor HR and BP keep MAP>65mmHg Renal/FEN: Acute Kidney Injury Rhabdomyolysis- resolved ODS-see neuro Hypernatremia Monitor renal function, I/O's, electrolytes replacement per protocol. DC D5/1/2 NS 04/21 GI: EtOH cirrhosis Hyperammonemia Hiatal hernia Sigmoid diverticulosis Hypoalbuminemia Continue tube feeds via PEG tube-(Jevity 1.5 with goal rate 60ml/hr) s/p PEG tube placement 04/15 CT abdomen/pelvis 04/16: Cirrhosis of liver, splenomegaly, anasarca, ascites(mild ) On Xifaxan 550 twice a day/lactulose 30 twice a day. US Liver 04/15: Abnormal appearance of the pancreas with a nonspecific hypoechoic area involving the posterior part of the pancreas along the head and body region. Fatty infiltration throughout the liver. There is thickening of the gallbladder wall at 6 mm. Suggestive of chronic gallbladder disease. Small amount of free fluid adjacent to the liver and spleen in the upper abdomen. Right-sided pleural effusion. 03/20 Ultrasound liver-hepatosplenomegaly. Sludge in gallbladder On IV Protonix 25 g albumin every 6 hours 6 doses has ordered Heme: Leukocytosis Macrocytic anemia Monitor CBC. No indications for transfusion of blood proximally postop B12 1452, Folate 15.2. TSH 0.8. ID: Aspiration pneumonia, PSAE in sputum Escherichia coli UTI 03/11 - completed therapy Acinetobacter pneumonia Pertinent cultures 04/15 Sputum cx: PSAE 04/15 urine cx: Klebsiella 04/15 BC: NGTD 04/12 BC: NGTD 04/08 - blood cultures 2 - no growth 04/08 - sputum - no growth 04/05 - urine -C GLABRATA AND C. ALBICANS 03/29 - blood cultures 2 - NGTD 03/25 - sputum --Acinetobacter. 03/25 - urine - NGTD 03/25 - blood cultures 2 -no growth 03/22 - urine - no growth 03/22 - blood cultures 2 - negative 03/20 - blood cultures 2 - no growth 03/11 - urine - Escherichia coli 03/02 - blood cultures 2 - no growth Followed by Dr. Lisa/ID. Changed Zosyn to cefepime 04/17 Levaquin started 04/20/17 by ID. Complete therapy by 04/30/17 Off Flagyl po 03/24 Procalcitonin level: 0.40, C-diff PCR negative 04/10 Endocrine: Hyperglycemia of critical illness History of hypothyroidism SSI with Accu-Cheks every 4 hours to maintain euglycemia MSK: History of old left clavicle fracture PT/OT evaluate and treat Access Peripheral IV. Prophylaxis: GI - Protonix DVT - SCD/heparin subcutaneous Palliative care is following code status changed to full code per daughter's request. Tamanna Sandhu, daughter/ HCP: from [facility] [phone] now confirmed transferred to [facility] in [place] facility ) Code status -full code CM working on LTAC placement Level 2 Larry Ruby MD April 25, 2017 12:48
[2017-04-25] MEDS ORDERED: BUMETANIDE INJ 1 MG/4 ML VIAL IV PUSH ONE (13:00)
--- NOTE | 2017-04-25 15:21 | HHI.HCPN ---
Reason for visit a. To assist with evaluation and management of symptoms including: dyspnea, pain. b. To assist medical decision maker(s) with: better understanding of current medical conditions; weighing benefits/burdens of medical treatment options; making medical treatment decisions. . (Melissa Mcclure) Subjective/Interval History Patient seen and examined in ICU. No family at bedside. Patient status post PEG tube placement on 04/15/17 and tracheostomy on 04/16/17. He remains intubated on mechanical ventilation via tracheostomy. Ongoing daily CPAP trials , not tolerating well. Patient has been off sedation, he is awake, alert and following some simple commands such as "squeeze my hand". Patient answer yes when asked about pain to legs. Unable to elaborate on details. Patient remains afebrile, stable hemodynamically. On ventilator support a 30% FiO2. Last laboratory 04/24/17 showing WBC 12.5, Hgb 9.7 and platelet count 187. ID following. Patient awake, very interactive today. Patient attempting to communicate by mouthing words and nodding his head to yes/no questions. Reviewed clinical course and current medical management to include ventilator support via tracheostomy. Reviewed diagnosis of central pontine myelinolysis, likely sequela of rapid correction of hyponatremia. Reviewed with patient likely progression of disease to include paralysis/paraplegia, difficulty with respiration/vent dependence and seizure activity. Reviewed that this symptoms are not likely reversible. Reviewed ongoing daily CPAP trials for medical extubation. Reviewed with patient the option of continuation of current medical management versus disconnecting ventilator support and allowing natural to occur. Patient shook head "no" , mouthing "I want to live". Asked patient if he wanted us to continue with current aggressive management to include hospitalization, mechanical ventilation and likely transfer to LTAC facility for rehabilitation/attempt at wean off vent support, patient nodding head "yes". Patient tearful when I mentioned daughter Amie who is currently in retirement. Asked patient if she would like Amie to continuing making medical decisions on his behalf if he is unable to do so, patient answered "yes". Patient mouthing "I want to go home". Ongoing emotional support provided. [facility] Left message for her daughter Amie to return called back for medical update. Case discussed with bedside RN. 16:15. Telephone conversation with patient's daughter Amie. Medical update provided. Reviewed ongoing CPAP trials and current medical management. Discussed that patient is being evaluated for LTAC vs long-term placement. Reviewed that patient remains at high risk for further complications, continue decline and . All questions were answered in great detail. Daughter appreciative of this update today. . Family/friend interactions See interval note. . (Melissa Mcclure) Advance Directives Living Will: Never completed Health Care Surrogate: Never completed Durable Power of Product Technician: Never completed (Melissa Mcclure) Advance Directive Specifics Health Care Surrogate(s): Margot Nolen is, per [place] statues bam care decision proxy. Now in [facility] (#[phone]). Facilitation of conversations with Tamanna can be arranged through booking (#[phone]) in emergency situations to address goals of care.Ask for a Lucila on staff as shifts rotate throughout the week. Significant change in goals: Full code. Continue aggressive management, goal of therapy is to to transfer to LTAC facility/wean off vent support. . (Melissa Mcclure) Objective Vital Signs Date Time Temp Pulse Resp B/P Pulse Ox O2 Delivery O2 Flow Rate FiO2 04/25/17 12:00 30 04/25/17 12:00 99.4 93 19 106/77 96 04/25/17 12:00 93 04/25/17 11:30 96 30 04/25/17 10:00 99 04/25/17 09:15 30 04/25/17 08:12 96 30 04/25/17 08:12 30 04/25/17 08:12 30 04/25/17 08:00 96 04/25/17 08:00 30 04/25/17 08:00 99.6 96 18 108/70 94 04/25/17 06:00 91 04/25/17 04:09 95 30 04/25/17 04:00 93 04/25/17 04:00 30 04/25/17 04:00 98.8 93 22 118/81 98 04/25/17 02:00 96 04/25/17 01:06 97 30 04/25/17 00:00 30 04/25/17 00:00 97 04/25/17 00:00 98.9 97 24 104/65 90 04/24/17 22:10 97 30 04/24/17 22:00 93 04/24/17 20:00 97 04/24/17 20:00 99.1 97 20 105/68 98 04/24/17 20:00 30 04/24/17 19:37 97 30 04/24/17 16:00 99.1 97 19 102/66 96 04/24/17 16:00 30 04/24/17 15:43 97 30 Intake & Output 04/25/17 04/25/17 07:00 19:00 Intake Total 1971 ml Output Total 900 ml Balance 1071 ml IV Total 321 ml Tube Feeding 1050 ml Albumin 200 ml Other 400 ml Output Urine Total 900 ml Physical Exam CONSTITUTIONAL/GENERAL: This is an thin, pale appearing patient, in no apparent distress. On mechanical ventilation via tracheostomy. TUBES/LINES/DRAINS: Tracheostomy, PEG tube, Johns, rectal tube, SCDs. Bilateral heel boots. SKIN: Ecchymosis bilateral UEs and face. Erythema/rash to forehead and bilateral cheeks. Skin temperature appropriate. CARDIOVASCULAR: Regular rate and rhythm. Edema to upper and lower extremities. RESPIRATORY/CHEST: Symmetric, on mechanical ventilation via trach. Coarse rhonchi anteriorly. GASTROINTESTINAL: Abdomen round, soft. Positive bowel sounds. Ongoing tube feedings via PEG tube. GENITOURINARY: Without palpable bladder distension. Johns catheter in place. Erythema groin area, scrotal edema noted. MUSCULOSKELETAL: Generalized edema noted. No mottling or clubbing. Very weak hand grasp bilaterally L>R. NEUROLOGICAL: Awake, alert. Interactive, communicating by nodding head to yes/ no questions and mouthing words. Following some commands. PSYCHIATRIC: Awake and alert. Tearful at times when talking about daughter Amie. . (Melissa Mcclure) Diagnostic Tests Laboratory Laboratory Tests Test 04/24/17 12:44 White Blood Count 12.5 TH/MM3 (4.0-11.0) Red Blood Count 3.02 MIL/MM3 (4.50-5.90) Hemoglobin 9.7 GM/DL (13.0-17.0) Hematocrit 30.1 % (39.0-51.0) Mean Corpuscular Volume 99.8 FL (80.0-100.0) Mean Corpuscular Hemoglobin 32.1 PG (27.0-34.0) Mean Corpuscular Hemoglobin 32.2 % Concent (32.0-36.0) Red Cell Distribution Width 15.9 % (11.6-17.2) Platelet Count 187 TH/MM3 (150-450) Mean Platelet Volume 9.4 FL (7.0-11.0) Neutrophils (%) (Auto) 79.2 % (16.0-70.0) Lymphocytes (%) (Auto) 11.9 % (9.0-44.0) Monocytes (%) (Auto) 5.6 % (0.0-8.0) Eosinophils (%) (Auto) 1.8 % (0.0-4.0) Basophils (%) (Auto) 1.5 % (0.0-2.0) Neutrophils # (Auto) 9.9 TH/MM3 (1.8-7.7) Lymphocytes # (Auto) 1.5 TH/MM3 (1.0-4.8) Monocytes # (Auto) 0.7 TH/MM3 (0-0.9) Eosinophils # (Auto) 0.2 TH/MM3 (0-0.4) Basophils # (Auto) 0.2 TH/MM3 (0-0.2) CBC Comment DIFF FINAL Differential Comment Hematology Comments Sodium Level 141 MEQ/L (136-145) Potassium Level 4.1 MEQ/L (3.5-5.1) Chloride Level 109 MEQ/L (98-107) Carbon Dioxide Level 23.4 MEQ/L (21.0-32.0) Anion Gap 9 MEQ/L (5-15) Blood Urea Nitrogen 16 MG/DL (7-18) Creatinine 0.32 MG/DL (0.60-1.30) Estimat Glomerular Filtration 285 ML/MIN Rate (>89) Random Glucose 113 MG/DL (74-106) Calcium Level 8.1 MG/DL (8.5-10.1) Phosphorus Level 2.6 MG/DL (2.5-4.9) Magnesium Level 1.8 MG/DL (1.5-2.5) Total Bilirubin 0.9 MG/DL (0.2-1.0) Aspartate Amino Transf 195 U/L (15-37) (AST/SGOT) Alanine Aminotransferase 90 U/L (12-78) (ALT/SGPT) Alkaline Phosphatase 533 U/L (45-117) Total Protein 5.8 GM/DL (6.4-8.2) Albumin 1.3 GM/DL (3.4-5.0) (Melissa Mcclure) Result Diagram: 04/24/17 1244 04/24/17 1244 Procedures * 04/16/17 -tracheostomy placement * 04/16/17 -endotracheal extubation * 04/15/17 - PEG tube placed. * 03/25/17 -Endotracheal intubation. . (Melissa Mcclure) Assessment and Plan Disease Oriented Problem List: (1) Sepsis due to Acinetobacter Comment: Sepsis syndrome secondary to pneumonia -MDR Acinetobacter (2) Acute hypoxemic respiratory failure Comment: Remains intubated on mechanical ventilation. 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 However, he is highly prone to further aspiration and increasing shortness of breath) Comment: Secondary to respiratory failure, pneumonia. Now status post tracheostomy on 04/16/17. Remains on mechanical ventilation. (2) Pain 0-10 Scale: 0 Comment: Prolonged hospitalization/bedrest, muscular weakness and atrophy. (3) Debility 0-10 Scale: Unable to quantify Comment: Secondary to acute illness and prolonged hospitalization. Pertinent Non-Medical Issues Psychosocial: 61-year-old with long-standing history of alcohol use and abuse, 1 daughter who is incarcerated in the [facility] pen[facility]. Spiritual: No reported. Legal: Daughter Tamanna owen, per [facility] care decision proxy. She is currently incarcerated at [facility]. They are permitting her to participate in decisions at this time. Ethical issues impacting care: As stated above. . Important Contacts * Tamanna Sandhu, daughter/ HCP: Margot Nolen is, per [facility] care decision proxy. . Now in [facility] (#[phone]). Facilitation of conversations with Tamanna can be arranged through booking (#[phone]) in emergency situations to address goals of care.Ask for a Lucila on staff as shifts rotate throughout the week. * Guillermo Roberts, daughter friend: [phone] (cell)- has frequent contact w Amie - has been very helpful. Prognosis Prognosis: Poor prognosis for meaningful recovery. . Code Status: Full Code Plan * HEALTHCARE DECISION-MAKING: Patient is , according to [place] statutes , health care proxy decision making falls to his only daughter, Tamanna. Now in [facility] (#[phone]). Facilitation of conversations with Tamanna can be arranged through booking (#[phone]) in emergency situations to address goals of care. Ask for a [place] on staff as shifts rotate throughout the week. * FULL CODE * GOALS OF CARE: As per patient and daughter, goal of therapy is to continue with aggressive management to include trach, PEG, and likely LTAC to facilitate liberation from ventilator. Daughter previously elected to pursue aggressive care to include full code, tracheostomy and PEG tube placement. -Patient participated in goals of care conversation today 04/25/17, Patient awake, very interactive. Communicating by mouthing words and nodding his head to yes/no questions. Reviewed clinical course and current medical management to include ventilator support via tracheostomy. Reviewed diagnosis of central pontine myelinolysis, likely sequela of rapid correction of hyponatremia, patient mouthing "I know that". Reviewed with patient likely progression of disease to include paralysis/paraplegia, difficulty with respiration/vent dependence and likely bedbound state. Reviewed that this symptoms are not likely reversible. Reviewed ongoing daily CPAP trials for medical extubation. Reviewed with patient the option of continuation of current medical management versus withdrawal of ventilator support and allowing natural to occur. Patient shook his head "no" , mouthing "I want to live". Asked patient if he wanted us to continue with current aggressive management to include hospitalization, full code, mechanical ventilation and likely transfer to LTAC facility for rehabilitation/attempt at wean off vent support, patient nodding head "yes". Patient tearful when I mentioned daughter Amie who is currently in retirement. Asked patient if she would like Amie to continuing making medical decisions on his behalf if he is unable to do so, patient answered "yes". Patient mouthing "I want to go home". Ongoing emotional support provided. * SYMPTOMS: =Dyspnea: secondary to respiratory failure. Remains on mechanical ventilation via tracheostomy. Has not been tolerating CPAP trials, likely discharge to LTAC facility. =Debility: Secondary to burden of disease, acute illness and prolonged hospitalization. Being evaluated for LTAC. =Pain: secondary to prolonged hospitalization, tubes and bedrest. Oxycodone available as needed. * Telephone conversation with daughter Amie who is under the custody of [facility] correctional agency. Medical update provided. * Case discussed with bedside RN. * Palliative care contact information has been provided to patient's daughter and her boyfriend during prior telephone conversation. * Palliative care will continue to follow further clarifications of goals of care as patient's clinical course evolves. . (Melissa Mcclure) Time Spent Total Floor Time (mins): 42 (Total time to include review medical records, physical exam, bedside conversation with patient regarding goals of care, and case discussion with bedside RN.) >50% Counseling/Coord of Care: Yes (Melissa Mcclure) Attestation To help prompt me to consider important information that might be impacting today's encounter and assessment, information from prior notes written by myself or my colleagues may have been "brought forward" into today's note. My signature on this note, however, is an attestation that I personally performed the exam, history, and/or decision-making noted today, and, unless otherwise indicated, the interactions with patient, family, and staff as well as the review of records all occurred today. I also attest that the listed assessment and stated plan reflect my best clinical judgment today based on the combination of historical information, prior notes, and today's exam/ interactions. When time spent is documented, it refers only to time spent today by the signer, or if indicated, combined time spent today by collaborating physician/nurse practitioner. (Melissa Mcclure) Collaborating MD Comments . Chart reviewed. Case discussed with palliative care DIRECTOR FINANCIAL SERVICES. Above DIRECTOR FINANCIAL SERVICES note reviewed and I concur. . (Greg Salas MD) Melissa Mcclure April 25, 2017 15:21 Greg Salas MD April 30, 2017 16:40
[2017-04-25 15:25] LABS: HEMATOCRIT 25.2 % (39.0-51.0); MEAN CELL VOLUME 98.7 FL (80.0-100.0); MEAN CORPUSCULAR HEMOGLOBIN 33.4 PG (27.0-34.0); MEAN CORPUSCULAR HGB CONC 33.8 % (32.0-36.0); PLATELET COUNT 190 TH/MM3 (150-450); RED BLOOD COUNT 2.55 MIL/MM3 (4.50-5.90); RED CELL DISTRIBUTION WIDTH 15.5 % (11.6-17.2); REVIEW FLAG FINAL; WHITE BLOOD COUNT 11.4 TH/MM3 (4.0-11.0)
[2017-04-25 15:32] LABS: POTASSIUM 3.8 MEQ/L (3.5-5.1)
[2017-04-25] MEDS: RESP: ALBUTEROL 2.5 MG/IPRATROPIUM 0.5 MG NEB (SCH) NEB ×2 (16:28→20:17)
[2017-04-26] VITALS (20 sets, daily range): BP systolic 98–136; BP diastolic 64–89; PULSE 83–98; RESP 12–21; TEMP 98.3–100; O2SAT 94–100
[2017-04-26] MEDS: RESP: ALBUTEROL 2.5 MG/IPRATROPIUM 0.5 MG NEB (SCH) NEB ×4 (03:50→21:05)
[2017-04-26] MEDS: MIDODRINE 5 MG TAB PO SCH ×3 (04:50→20:40)
[2017-04-26] MEDS: THIAMINE HCL 100 MG TAB PO SCH (09:00)
[2017-04-26] MEDS: INSULIN NovoLIN REGULAR SUPPLEMENTAL SCALE SQ SCH ×2 (09:00→20:08)
[2017-04-26] MEDS: LACTULOSE SYRUP 20 GM/30 ML CUP PO SCH ×2 (09:08→20:06)
[2017-04-26] MEDS: levETIRAcetam 1000 MG INJ 100 ML IV SCH ×2 (09:09→20:06)
[2017-04-26] MEDS: ACETAMINOPHEN 325 MG TAB PO PRN (09:09)
[2017-04-26] MEDS: PANTOPRAZOLE SODIUM 40 MG VIAL IV SCH (09:09)
[2017-04-26] MEDS: LACTOBACILLUS ACIDOPHILUS TAB PO SCH ×3 (09:10→17:54)
[2017-04-26] MEDS: RIFAXIMIN 550 MG TAB PO SCH ×2 (09:10→20:06)
[2017-04-26] MEDS: LEVOFLOXACIN 750 MG TAB PO SCH (09:10)
[2017-04-26] MEDS: CHLORHEXIDINE 0.12% (ORAL KIT) 15 ML CUP MT SCH ×2 (09:11→20:07)
[2017-04-26] MEDS: SODIUM CHLORIDE 0.9% FLUSH 10 ML FLUSH IV FLUSH SCH ×2 (09:11→20:07)
[2017-04-26] MEDS: ARTIFICIAL TEARS OPTH SOLN 15 ML BTL EACH EYE SCH ×3 (09:14→17:54)
[2017-04-26] MEDS: NYSTATIN 100,000 U/GM PWD 15 GM BTL TOPICAL SCH ×2 (09:14→20:08)
[2017-04-26] MEDS ORDERED: ALBUMIN HUMAN 25% 25 GM/100 ML BAGP IV ONE (11:00)
[2017-04-26] MEDS ORDERED: POTASSIUM CHLORIDE 25 MEQ EFFERVESCENT TAB PO ONE (11:00)
[2017-04-26] MEDS ORDERED: BUMETANIDE INJ 1 MG/4 ML VIAL IV PUSH ONE (11:00)
--- NOTE | 2017-04-26 11:03 | HHI.CCPN ---
Subjective Remarks/Hospital Course This is a 61-year-old male with a past history of alcohol abuse and a prior admission in 2015 for severe life-threatening hyponatremia at that time with a serum sodium of 98. He presents today with what he states is a 13 day history of worsening fatigue and weakness. He is very altered and is very difficult to understand the patient. What I can understand from him, is that at some point during these 13 days he has fallen and hit his face. Otherwise he states he lays on the couch, and has not gotten not much. He states he drinks 1 beer in the morning, and 1 beer in the afternoon. He does endorse taking some Xanax to help him sleep. He denies other drug use. He denies chest pain, shortness of breath, fever, chills, nausea, vomiting, abdominal pain. It is very difficult to get him to answer anymore questions about his medical history. His speech is very slurred and he is trying to talk about how he misses his daughter. Emergency department he was found to have a serum sodium of 99, a bilirubin of 8.9, lactate of 9.8, ammonia of 60, CK of 7000, elevated troponin of 4.9 with a normal MB ratio, creatinine 1.5, serum bicarbonate of 13. His white count is 12 , platelets 112. INR 1.9. His MELD calculates at 26. 4/2: Sodium level rapidly corrected overnight, likely secondary to appropriate correction of severe life-threatening dehydration. NS fluids changed to 1/2NS and correction slowed down significantly. sodium up to 130 this AM. CK downtrending. however, patient remains severely hypotensive requiring Levophed to maintain a map > 65 mmHg. This AM, serum K 1.6 (confirmed). started replacement with 200meq KCl and recheck K. 03/04: persists in vasoplegic distributive shock. afebrile. no evidence of infection. wbc downtrending. persists with severe life-threatening electrolyte derangements. passed swallow eval for nectar thick liquids. sodium stable at 131. ck downtrending. 03/05: persists in distributive shock. echo yesterday with EF 30%, globally decreased function. milrinone added yesterday with improvement in vasopressor requirement. still with multiple electrolyte abnormalities despite very aggressive replacement. very poor appetite. sodium stable at 131, which appears to be around baseline for him, looking back at prior records. also became agitated and delirious yesterday, likely secondary to etoh withdraw. started on Ativan and Librium. 03/06: electrolyte derangements persist. placed on continuous NaPhos infusion x 24h due to severe life-threatening hypophosphatemia. serial K, phos checks. weaning off levophed, milrinone persists. still poor appetite. sodium jumped from 132 to 139, but no significant mental status change, and we did not increase sodium load. 03/07: still requiring high electrolyte replacement. milrinone weaned to 0.375 mcg /kg/min overnight. still doing well with that. delirium persists. 03/08 Remains on milrinone. Electrolyte improving. Remains very lethargic, intermittently follows commands 03/09: Continues to be lethargic but wakes up follows some commands. Remains on milrinone will DC today. T max 100.1, urine output adequate sodium is 143 03/10: More awake alert, ate 50% of break fast. Will DC Dobhoff. Discontinue arterial and central lines. Delirium also improved, remains weak 03/11: doing much better this morning. no complaints. still with poor appetite. electrolytes improved. 03/20: We consulted for respiratory failure. Patient was last seen in room 1415 CMP receiving oral cares and became acutely hypoxic saturations 82% with coarse breath sounds. Halicat called. Patient was placed on a Venturi mask 50 % with desaturations to the mid 90s. He received Solu-Medrol 20 mg IV 1, Lasix 40 mg IV 1 and was transferred IM [facility] 521. Hemodynamically stable. Poor mentation 03/25: Reconsulted due to respiratory failure. Patient with gurgling/ transmitted upper airway sounds. Respiration the 50s. Decision made to orotracheally intubate. Noted to have been febrile with increased O2 course over the past 48 hours. 03/26: Afebrile. Requiring Nimbex drip for ventilator synchrony. Decreased urine output noted. Hemoglobin decreased likely dilutional. Tolerating tube feeding. Electrolytes been replaced. 03/27: Tmax 100.9. Currently 97.2. +6 L past 24 hours. Hemoglobin 8 transfuse overnight. Potassium 3. We'll discontinue Nimbex drip for vent synchrony today. 03/28: Afebrile. Negative fluid balance past 24 hours. Hemoglobin currently 9. Potassium 3.0. Currently on sedation vacation positive gag and otherwise unresponsive. 03/29: Tmax 103. Currently afebrile. Not tolerating tube feeds. Remains on Kiran-Synephrine. Did not tolerate sedation vacation back on Versed at 5 mg an hour fentanyl drip at 100 mcg an hour. One bowel movement. 03/30 Tube feeds remain on hold. On neosynephrine 40 mcg/min, RN states she has been weaning. Having BMs. On Versed 8 mg/hr and fentanyl 100 mcg/hr. 03/31 Off versed. Remains on fentanyl 100 mcg/hr. Having hiccups. Still on neosynephrine 40 mcg/min. Tolerating trickle feeds. Had 2 bowel movements 04/01: no meaningful change. still requires fentanyl for sedation. still on low- dose vasopressors. 04/02: no changes. still on levo @ 7 mcg/min. unable to wean off fentanyl due to tachycardia and tachypnea. 04/03: Off all sedation. On low-dose norepinephrine. Essentially unresponsive on the ventilator. Plan for likely withdrawal of care tomorrow 04/04: Off all sedation. Off all vasopressors. According to overnight RN was following commands. Will open eyes but not following commands this AM. 04/05 No events overnight. Afebrile On no sedation. 04/06: Resting comfortably in bed. Eyes are open. Moving head back and forth continuously. Weakly following commands with his upper and lower extremities. 04/07: Low-grade temperatures overnight. 99.8. Eyes are open. Moving back and forth. Positive BM. Continues to be following commands. 04/08 Patient remains intubated on no sedation awake and follows commands. Tmax 100.8 04/09 Patient remains intubated, tolerated CPAP all day and had good responses in UO with Bumex yesterday. Afebrile. 04/10: Tmax 99.1. Went back on set rate ventilation yesterday. Will attempt PSV trials throughout the day with goal to attempt extubation tomorrow. 04/11: Tmax 100.2. Currently 100.1. Did not tolerate weaning parameters with NIF -9 and unacceptable RSBI. Patient is arousable and follows commands eyes open 04/12: Omayra care reports tonic-clonic seizure activity this AM. Heart rate in the 140s during episode with violent shaking. On examination, patient's eyes are open and at baseline except currently not following commands. 04/13: had 2 seizures this morning, both resolved without medication interventions. Dr. Fabrizio navas'd at bedside earlier and ordered Cerebyx load. no other changes. plan for trach/peg next week 04/14: still having breakthrough seizures on repeat EEG despite Cerebyx and Keppra. plan for PEG tomorrow. 04/15 No events overnight. Remains intubated. On no sedation. For PEG tube placement today. T:101.2 last night. 04/16 Patient remains intubated. For trach this afternoon. s/p PEG tube placement yesterday. Spiked fever with T:102.5 last night. 04/17 Patient s/p trach yesterday. T: 100.3 at midnight. 04/18 Continues to have low-grade fever. No change in mental status. Sputum Pseudomonas pansensitive. No seizures reported in the last 24 hours 04/19: No fever reported. Slightly more awake and was commands on right upper extremity by squeezing hands very weakly. On CPAP 15/04. Slightly tachypneic 04/20: WBC count slightly elevated today, tachypnea on CPAP. Continues to follow commands weakly on right hand. Intermittently about to wiggle toes. Slight increase in white count to 13,000. Tmax 100.9 ID following 04/21: Tolerated only 1 hour CPAP yesterday. Unable to reduce pressure support. Tmax 99.9 04/22: Remains on mechanical ventilation via tracheostomy. Tolerated C Pap trial for 1 hour yesterday. 04/23: Remains on mechanical ventilation via tracheostomy. Daily C Pap trials ongoing. Tolerating tube feeds. 04/24: Afebrile. Copious edema//swelling extremities. Decreased urine output noted. Remains on mechanical ventilation via trach acid. Daily C Pap trials ongoing. Positive BM. 04/25: Tmax 99.5. With copious edema. Will give 1 additional dose of Bumex today after albumin. Remains on ventilator via tracheostomy. Ongoing CPAP trials. Subjective: 04/26: Tmax 100. Diuresed yesterday. Remains on ventilator via tracheostomy. Positive BM. Objective Vital Signs Date Time Temp Pulse Resp B/P Pulse Ox O2 Delivery O2 Flow Rate FiO2 04/26/17 10:00 97 04/26/17 09:30 30 04/26/17 08:40 99 04/26/17 08:00 100.0 12 98/64 Intake and Output 04/25/17 04/25/17 04/26/17 08:00 16:00 00:00 Intake Total 1027 ml 743 ml 810 ml Output Total 200 ml 250 ml 1850 ml Balance 827 ml 493 ml -1040 ml Result Diagram: 04/25/17 1451 04/25/17 1451 Objective Remarks GENERAL: 61-year-old chronically ill appearing male, critically ill. HEENT: Healing abrasion left side scalp. TIMOTHY. Scleral icterus. Poor dentition. NECK: Trachea Midline, Trach without bleed RESP: Coarse breath sounds bilaterally. Occasional and extremities. CARDIOVASCULAR: Tachycardia, RR. S1, S2. No S4. ABDOMEN: Slightly distended but soft, bowel sounds present, tolerating tube feeds. G-tube is clear dry and intact : Johns in place with conrad urine output. mild/moderate scrotal edema. MUSCULOSKELETAL: No obvious deformity. 1+ to 2+ edema all extremities NEUROLOGICAL: Eyes are open spontaneously. Following commands on right upper extremity by squeezing hands very weakly. Wiggles toes very weakly A/P Assessment and Plan Neuro/Psych: Osmotic demyelination syndrome Acute toxic metabolic encephalopathy secondary to hypercarbic respiratory failure Alcohol dependence Seizures (History of EtOH induced seizure withdrawal) Chronic benzodiazepine use Bilateral thalamic CVA Off all sedation. oxycodone 5 mg every 4 hours as needed for pain. Ativan 0.5 mg PRN for sz MRI 03/21 - findings consistent with Osmotic demyelination syndrome. ODS most likely from rapid correction of Na, with underlying alcoholism. ( Patient was profoundly hypotensive in shock requiring multiple pressors at that time) MRI brain 03/28 revealed subacute bilateral thalamic lacunar infarcts, ODS. CT head 03/05 revealed no acute intracranial findings Continue thiamine 100 mg daily Seen by neurology/Dr. Mazariegos. EEG with persistent seizures. continue Keppra 1000mg BID Respiratory: Acute hypoxemic hypercapnic respiratory failure PRVC 18/550/1.2/35. Continue with vent support keep sat >92% Ventilator bundle, s/p trach 04/16 Bronchodilator therapy every 6 hours and as needed SBT daily as pablo. Pulm toilet, trach care. TP for 2-4 hours (Unable to place on TP yet due to tachypnea) Tolerated CPAP only 1 hour 04/21/17 Cardiovascular: Chronic Systolic heart failure Echocardiogram 03/04 revealed EF 35-40%. Mild MR. Left atrium dilated. JANE 33 mmHg s/p hydrocortisone. Continue midodrine 10 mg 3 times Monitor HR and BP keep MAP>65mmHg Renal/FEN: Acute Kidney Injury Rhabdomyolysis- resolved ODS-see neuro Hypernatremia Monitor renal function, I/O's, electrolytes replacement per protocol. DC D5/1/2 NS 04/21 GI: EtOH cirrhosis Hyperammonemia Hiatal hernia Sigmoid diverticulosis Hypoalbuminemia Continue tube feeds via PEG tube-(Jevity 1.5 with goal rate 60ml/hr) s/p PEG tube placement 04/15 CT abdomen/pelvis 04/16: Cirrhosis of liver, splenomegaly, anasarca, ascites(mild ) On Xifaxan 550 twice a day/lactulose 30 twice a day. US Liver 04/15: Abnormal appearance of the pancreas with a nonspecific hypoechoic area involving the posterior part of the pancreas along the head and body region. Fatty infiltration throughout the liver. There is thickening of the gallbladder wall at 6 mm. Suggestive of chronic gallbladder disease. Small amount of free fluid adjacent to the liver and spleen in the upper abdomen. Right-sided pleural effusion. 03/20 Ultrasound liver-hepatosplenomegaly. Sludge in gallbladder On IV Protonix 25 g albumin every 6 hours 6 doses has ordered Heme: Leukocytosis Macrocytic anemia Monitor CBC. No indications for transfusion of blood proximally postop B12 1452, Folate 15.2. TSH 0.8. ID: Aspiration pneumonia, PSAE in sputum Escherichia coli UTI 03/11 - completed therapy Acinetobacter pneumonia Pertinent cultures 04/15 Sputum cx: PSAE 04/15 urine cx: Klebsiella 04/15 BC: NGTD 04/12 BC: NGTD 04/08 - blood cultures 2 - no growth 04/08 - sputum - no growth 04/05 - urine -C GLABRATA AND C. ALBICANS 03/29 - blood cultures 2 - NGTD 03/25 - sputum --Acinetobacter. 03/25 - urine - NGTD 03/25 - blood cultures 2 -no growth 03/22 - urine - no growth 03/22 - blood cultures 2 - negative 03/20 - blood cultures 2 - no growth 03/11 - urine - Escherichia coli 03/02 - blood cultures 2 - no growth Followed by Dr. Lisa/ID. Changed Zosyn to cefepime 04/17 Levaquin started 04/20/17 by ID. Complete therapy by 04/30/17 Off Flagyl po 03/24 Procalcitonin level: 0.40, C-diff PCR negative 04/10 Endocrine: Hyperglycemia of critical illness History of hypothyroidism SSI with Accu-Cheks every 4 hours to maintain euglycemia MSK: History of old left clavicle fracture PT/OT evaluate and treat Access Peripheral IV. Prophylaxis: GI - Protonix DVT - SCD/heparin subcutaneous Palliative care is following code status changed to full code per daughter's request. Tamanna Sandhu, daughter/ HCP: from [facility] [phone] now confirmed transferred to [facility] in [place] facility ) Code status -full code CM working on LTAC placement Level 2 Larry Ruby MD April 26, 2017 11:03
--- NOTE | 2017-04-26 11:19 | HHI.IDPN ---
Subjective Subjective Remarks Notes reviewed One low grade temps this morning On the vent Awake and following some commands Antibiotics Levaquin Lines PIV Past Medical History ETOHism Allergies: Coded Allergies: PEANUTS (Unverified Allergy, Severe, 03/02/17) *MDRO Multi-Drug Resistant Organism (Verified Adverse Reaction, Unknown, ) MRSA PCR screen POSITIVE - 03/02/17 MDR Acinetobacter (sputum) - 03/25/17 Objective . Vital Signs Date Time Temp Pulse Resp B/P Pulse Ox O2 Delivery O2 Flow Rate FiO2 04/26/17 10:00 97 04/26/17 09:30 30 04/26/17 08:40 99 30 04/26/17 08:00 98 04/26/17 08:00 30 04/26/17 08:00 100.0 98 12 98/64 94 04/26/17 06:00 91 04/26/17 04:12 99 30 04/26/17 04:00 91 04/26/17 04:00 30 04/26/17 04:00 99.9 91 19 118/73 98 04/26/17 02:00 91 04/26/17 01:12 99 30 04/26/17 01:10 90 04/26/17 00:00 99.7 97 19 120/81 98 04/26/17 00:00 30 04/26/17 00:00 92 04/25/17 22:10 97 30 04/25/17 22:00 92 04/25/17 20:00 92 04/25/17 20:00 30 04/25/17 20:00 98.7 95 19 131/70 98 04/25/17 19:15 97 30 04/25/17 18:00 92 04/25/17 16:00 30 04/25/17 16:00 98.9 90 19 104/68 98 04/25/17 16:00 90 04/25/17 15:52 98 30 04/25/17 14:00 92 04/25/17 12:00 30 04/25/17 12:00 99.4 93 19 106/77 96 04/25/17 12:00 93 04/25/17 11:30 96 30 04/25/17 04/25/17 04/26/17 15:00 23:00 07:00 Intake Total 743 ml 810 ml 692 ml Output Total 250 ml 1850 ml 625 ml Balance 493 ml -1040 ml 67 ml IV Total 210 ml 210 ml 117 ml Tube Feeding 533 ml 475 ml 450 ml Other 125 ml 125 ml Output Urine Total 250 ml 1625 ml 275 ml Stool Total 225 ml 350 ml . Laboratory Tests Test 04/24/17 04/25/17 12:44 14:51 White Blood Count 12.5 TH/MM3 11.4 TH/MM3 Red Blood Count 3.02 MIL/MM3 2.55 MIL/MM3 Hemoglobin 9.7 GM/DL 8.5 GM/DL Hematocrit 30.1 % 25.2 % Mean Corpuscular Volume 99.8 FL 98.7 FL Mean Corpuscular Hemoglobin 32.1 PG 33.4 PG Mean Corpuscular Hemoglobin 32.2 % 33.8 % Concent Red Cell Distribution Width 15.9 % 15.5 % Platelet Count 187 TH/MM3 190 TH/MM3 Mean Platelet Volume 9.4 FL 9.1 FL Neutrophils (%) (Auto) 79.2 % Lymphocytes (%) (Auto) 11.9 % Monocytes (%) (Auto) 5.6 % Eosinophils (%) (Auto) 1.8 % Basophils (%) (Auto) 1.5 % Neutrophils # (Auto) 9.9 TH/MM3 Lymphocytes # (Auto) 1.5 TH/MM3 Monocytes # (Auto) 0.7 TH/MM3 Eosinophils # (Auto) 0.2 TH/MM3 Basophils # (Auto) 0.2 TH/MM3 CBC Comment DIFF FINAL Differential Comment Hematology Comments Laboratory Tests Test 04/24/17 04/25/17 12:44 14:51 Sodium Level 141 MEQ/L 141 MEQ/L Potassium Level 4.1 MEQ/L 3.8 MEQ/L Chloride Level 109 MEQ/L 106 MEQ/L Carbon Dioxide Level 23.4 MEQ/L 26.0 MEQ/L Anion Gap 9 MEQ/L 9 MEQ/L Blood Urea Nitrogen 16 MG/DL 14 MG/DL Creatinine 0.32 MG/DL 0.32 MG/DL Estimat Glomerular Filtration 285 ML/MIN 285 ML/MIN Rate Random Glucose 113 MG/DL 113 MG/DL Calcium Level 8.1 MG/DL 8.5 MG/DL Phosphorus Level 2.6 MG/DL Magnesium Level 1.8 MG/DL Total Bilirubin 0.9 MG/DL Aspartate Amino Transf 195 U/L (AST/SGOT) Alanine Aminotransferase 90 U/L (ALT/SGPT) Alkaline Phosphatase 533 U/L Total Protein 5.8 GM/DL Albumin 1.3 GM/DL Imaging Chest X-Ray 04/19/17 06 Signed Impressions: Service Date/Time: Wednesday, April 19, 2017 04:24 - CONCLUSION: 1. Stable basilar airspace disease. Tracheostomy unchanged. Miguel Looney MD Liver Ultrasound 04/15/17 Signed Impressions: Service Date/Time: Saturday, April 15, 2017 09:24 - CONCLUSION: 1. Abnormal appearance of the pancreas with a nonspecific hypoechoic area involving the posterior part of the pancreas along the head and body region. Recommend CT scan of the abdomen with oral and IV contrast further evaluation. 2. Fatty infiltration throughout the liver. 3. There is thickening of the gallbladder wall at 6 mm. This is suggestive of chronic gallbladder disease. 4. Small amount of free fluid adjacent to the liver and spleen in the upper abdomen.. 5. Right-sided pleural effusion. Víctor Rosas MD Chest X-Ray 04/13/17 06 Signed Impressions: Service Date/Time: Thursday, April 13, 2017 03:50 - CONCLUSION: Stable bilateral scattered pulmonary infiltrates. Víctor Rosas MD Abdomen X-Ray 04/13/17 Signed Impressions: Service Date/Time: Thursday, April 13, 2017 10:36 - CONCLUSION: Dobbhoff tip in distal stomach. No evidence of obstruction. Logan Morgan MD Head CT 04/12/17 Signed Impressions: Service Date/Time: Wednesday, April 12, 2017 21:30 - CONCLUSION: Pontine encephalomalacia. Left mastoiditis. Casper Alva MD Head Magnetic Resonance Angiography 03/28/17 Signed Impressions: Service Date/Time: March 17:22 - CONCLUSION: Unremarkable examination. Bety Castillo MD Brain MRI 03/28/17 Signed Impressions: Service Date/Time: March 17:22 - CONCLUSION: 1. 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 Small subacute ischemic bilateral thalamic infarcts. 2. There has been no significant change when compared to the prior exam. Yinka Harman MD Lower Extremity Ultrasound 4/24/17 0000 Signed Impressions: Service Date/Time: Saturday, March 25, 2017 22:17 - CONCLUSION: No evidence of DVT. Víctor Rosas MD CT Angiography 03/21/17 0000 Signed Impressions: Service Date/Time: March 00:33 - CONCLUSION: No evidence of pulmonary embolism is identified. Mild atelectasis left lung base. Fluid or phlegm within the trachea. Milo Muhammad MD Abdomen Ultrasound 03/20/17 0000 Signed Impressions: Service Date/Time: Monday, March 20, 2017 11:38 - CONCLUSION: 1. Hepatosplenomegaly without focal lesion. 2. Probable sludge within the lumen of the gallbladder. No intrahepatic duct. Cheo Martínez MD Shoulder X-Ray 03/02/17 1404 Signed Impressions: Service Date/Time: Thursday, March 02, 2017 15:18 - CONCLUSION: No evidence of recent bony injury. Deformity of the lateral left clavicle suggests old healed trauma. Cheo Martínez MD Maxillofacial CT 03/02/17 1342 Signed Impressions: Service Date/Time: Thursday, March 02, 2017 14:52 - CONCLUSION: Negative CT of the facial bones. Cheo Martínez MD Chest CT 03/02/17 1342 Signed Impressions: Service Date/Time: Thursday, March 02, 2017 15:04 - CONCLUSION: 1. Abnormal appearance of the lateral left clavicle suggesting a combination of acute and chronic bony injury. Fracture lucencies without bridging callus is seen the region of the coracoid process. 2. The lungs are clear. No evidence of pneumothorax. 3. Moderate size hiatus hernia. Cheo Martínez MD Cervical Spine CT 03/02/17 1342 Signed Impressions: Service Date/Time: Thursday, March 02, 2017 14:52 - CONCLUSION: Negative CT cervical spine. Cheo Martínez MD Abdomen/Pelvis CT 03/02/17 1342 Signed Impressions: Service Date/Time: Thursday, March 02, 2017 15:04 - CONCLUSION: Moderate size hiatus hernia. Scattered small sigmoid diverticula. Otherwise negative exam. Cheo Martínez MD Chest X-Ray 04/08/17 0600 Signed Impressions: Service Date/Time: Saturday, April 08, 2017 05:10 - CONCLUSION: 1. Endotracheal tube and weighted feeding tube. 2. Bilateral pulmonary infiltrates. Some improvement from the prior study. Cheo Barrera Jr., MD Chest X-Ray 03/27/17 0600 Signed Impressions: Service Date/Time: Monday, March 27, 2017 02:33 - CONCLUSION: No significant interval change. Víctor Rosas MD Chest X-Ray 03/26/17 0600 Signed Impressions: Service Date/Time: Sunday, March 26, 2017 05:35 - CONCLUSION: Improving bilateral pulmonary infiltrates Víctor Rosas MD Chest X-Ray 03/25/17 1004 Signed Impressions: Service Date/Time: Saturday, March 25, 2017 10:03 - CONCLUSION: 1. Worsening bibasilar consolidation. 2. Endotracheal tube with tip at the thoracic inlet and should be advanced at least 3-4 cm. 3. Adequate placement of left jugular central line without pneumothorax. Logan Morgan MD Chest X-Ray 03/26/17 0600 Signed Impressions: Service Date/Time: Sunday, March 26, 2017 05:35 - CONCLUSION: Improving bilateral pulmonary infiltrates Víctor Rosas MD Lower Extremity Ultrasound 03/25/17 0000 Signed Impressions: Service Date/Time: Saturday, March 25, 2017 22:17 - CONCLUSION: No evidence of DVT. Víctor Rosas MD CT Angiography 03/21/17 0000 Signed Impressions: Service Date/Time: March 00:33 - CONCLUSION: No evidence of pulmonary embolism is identified. Mild atelectasis left lung base. Fluid or phlegm within the trachea. Milo Muhammad MD Brain MRI 03/20/17 0000 Signed Impressions: Service Date/Time: Monday, March 20, 2017 16:11 - CONCLUSION: Abnormal appearance to the ruthy with some extension into the cortical spinal tracts of the posterior thalamus was bilaterally. 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 Cheo Martínez MD Abdomen X-Ray 03/20/17 0000 Signed Impressions: Service Date/Time: Monday, March 20, 2017 18:12 - CONCLUSION: Tip of the Dobbhoff tube projecting towards the pylorus. Cheo Barrera Jr., MD Abdomen Ultrasound 03/20/17 0000 Signed Impressions: Service Date/Time: Monday, March 20, 2017 11:38 - CONCLUSION: 1. Hepatosplenomegaly without focal lesion. 2. Probable sludge within the lumen of the gallbladder. No intrahepatic duct. Cheo Martínez MD Shoulder X-Ray 03/02/17 1404 Signed Impressions: Service Date/Time: Thursday, March 02, 2017 15:18 - CONCLUSION: No evidence of recent bony injury. Deformity of the lateral left clavicle suggests old healed trauma. Cheo Martínez MD Maxillofacial CT 03/02/17 1342 Signed Impressions: Service Date/Time: Thursday, March 02, 2017 14:52 - CONCLUSION: Negative CT of the facial bones. Cheo Martínez MD Head CT 03/02/17 1342 Signed Impressions: Service Date/Time: Thursday, March 02, 2017 14:52 - CONCLUSION: 1. Prominent scalp swelling left frontal and parietal region. No skull fracture seen. 2. Intracranial contents are intact without acute finding. Cheo Martínez MD Chest CT 03/02/17 1342 Signed Impressions: Service Date/Time: Thursday, March 02, 2017 15:04 - CONCLUSION: 1. Abnormal appearance of the lateral left clavicle suggesting a combination of acute and chronic bony injury. Fracture lucencies without bridging callus is seen the region of the coracoid process. 2. The lungs are clear. No evidence of pneumothorax. 3. Moderate size hiatus hernia. Cheo Martínez MD Cervical Spine CT 03/02/17 1342 Signed Impressions: Service Date/Time: Thursday, March 02, 2017 14:52 - CONCLUSION: Negative CT cervical spine. Cheo Martínez MD Abdomen/Pelvis CT 03/02/17 1342 Signed Impressions: Service Date/Time: Thursday, March 02, 2017 15:04 - CONCLUSION: Moderate size hiatus hernia. Scattered small sigmoid diverticula. Otherwise negative exam. Choe Martínez MD Chest X-Ray 03/25/17 1004 Signed Impressions: Service Date/Time: Saturday, March 25, 2017 10:03 - CONCLUSION: 1. Worsening bibasilar consolidation. 2. Endotracheal tube with tip at the thoracic inlet and should be advanced at least 3-4 cm. 3. Adequate placement of left jugular central line without pneumothorax. Logan Morgan MD Chest X-Ray 03/23/17 0000 Signed Impressions: Service Date/Time: Thursday, March 23, 2017 14:27 - CONCLUSION: 1. Feeding tube in place with what appears to be a loop in the hypopharynx. 2. Bibasilar areas of consolidation or atelectasis. Casper Vargas MD Physical Exam GENERAL: Awakens easily, focusing, following some commands, on the vent, NAD SKIN: Warm and dry. No generalized rash. HEENT: Pupils equal round and reactive. Poor dentition. A lot of oral secretions NECK: Supple, nontender, no meningeal signs. Previous line site ok. Trach site ok, has light green secretions around it CARDIOVASCULAR: Regular rate and rhythm without murmurs, gallops, or rubs. RESPIRATORY: Scattered rhonchi GASTROINTESTINAL: Abdomen mildly distended, bowel sounds are present and normoactive, not tender. PEG site ok MUSCULOSKELETAL: Lower extremities without clubbing, cyanosis. (+) pedal edema. NEUROLOGICAL: Awake and focusing : Johns cath in place, urine looks better. Scrotum edematous LINE: PIV no evidence of infection Assessment & Plan Remarks IMPRESSION Sepsis syndrome, due to PNA, improving - on vent - has MDR Acinetobacter, S/P RX MDR Acinetobacter PNA - S/P Rx Recurrent fevers, etiology? - intermittent - has UTI - CXR stable infiltrates; atelectasis - ?drug fever (anticonvulsants) Kleb UTI New VAP, has PSAE Septic shock, BP better, off pressors Known ETOH abuse Encephalopathy - sepsis, ETOH, CPM Respiratory failure - S/P trach Diarrhea, C diff negative, volume decreased Seizures, controlled - ?due to CPM - per records had ETOH withdrawal SZ RECOMMENDATION Follow temps UA and C/S Monitor progress Weaning as tolerated per CCM Being evaluated for LTAC Continue Levaquin - plan to complete RX 04/30 Add Devi Moy covering 04/27-04/29 Umm Lisa MD April 26, 2017 11:19
[2017-04-26] MEDS: FLUCONAZOLE 100 MG TAB PO SCH (12:15)
[2017-04-26] MEDS: MUPIROCIN 2% OINT 1 APPLIC/GM SYR EACH NARE SCH ×2 (12:16→20:08)
[2017-04-26] MEDS: SODIUM CHLORIDE 0.9% FLUSH 10 ML FLUSH IVF SCH (12:18)
[2017-04-26 20:10] LABS: BACTERIA, URINE RARE /hpf; BLOOD, URINE NEG (NEG); GLUCOSE,URINE NEG (NEG); KETONE, URINE NEG (NEG); MUCUS URINE FEW /lpf (OCC); NITRITE,URINE NEG (NEG); PH, URINE 6.5 (5.0-8.5); URINE COLOR YELLOW (YELLW/STRAW)
[2017-04-26 20:14] LABS: COMMENT (UR) CATH-CULTURE IND; CULTURE IF INDICATED CATH CULTURE IND
[2017-04-27] VITALS (31 sets, daily range): BP systolic 97–154; BP diastolic 61–102; PULSE 79–96; RESP 16–25; TEMP 98–99.3; O2SAT 96–100
[2017-04-27] MEDS: RESP: ALBUTEROL 2.5 MG/IPRATROPIUM 0.5 MG NEB (SCH) NEB ×4 (03:29→20:35)
[2017-04-27] MEDS: MIDODRINE 5 MG TAB PO SCH ×3 (03:55→19:50)
[2017-04-27 07:41] LABS: HEMATOCRIT 23.3 % (39.0-51.0); MEAN CELL VOLUME 101.1 FL (80.0-100.0); MEAN CORPUSCULAR HEMOGLOBIN 34.3 PG (27.0-34.0); MEAN CORPUSCULAR HGB CONC 33.9 % (32.0-36.0); PLATELET COUNT 206 TH/MM3 (150-450); RED CELL DISTRIBUTION WIDTH 15.8 % (11.6-17.2); REVIEW FLAG FINAL; WHITE BLOOD COUNT 11.2 TH/MM3 (4.0-11.0)
[2017-04-27 08:01] LABS: BICARBONATE 25.6 MEQ/L (21.0-32.0); POTASSIUM 3.9 MEQ/L (3.5-5.1)
[2017-04-27] MEDS: THIAMINE HCL 100 MG TAB PO SCH (08:32)
[2017-04-27] MEDS: LEVOFLOXACIN 750 MG TAB PO SCH (08:32)
[2017-04-27] MEDS: RIFAXIMIN 550 MG TAB PO SCH ×2 (08:32→19:41)
[2017-04-27] MEDS: LANSOPRAZOLE SOLUTAB 30 MG TAB NG SCH (08:32)
[2017-04-27] MEDS: levETIRAcetam 1000 MG INJ 100 ML IV SCH (08:33)
[2017-04-27] MEDS: MUPIROCIN 2% OINT 1 APPLIC/GM SYR EACH NARE SCH ×2 (08:33→19:41)
[2017-04-27] MEDS: INSULIN NovoLIN REGULAR SUPPLEMENTAL SCALE SQ SCH ×2 (08:34→19:49)
[2017-04-27] MEDS: NYSTATIN 100,000 U/GM PWD 15 GM BTL TOPICAL SCH ×2 (08:34→19:41)
[2017-04-27] MEDS: ARTIFICIAL TEARS OPTH SOLN 15 ML BTL EACH EYE SCH ×3 (08:34→17:52)
[2017-04-27] MEDS: FLUCONAZOLE 100 MG TAB PO SCH (08:35)
[2017-04-27] MEDS: SODIUM CHLORIDE 0.9% FLUSH 10 ML FLUSH IV FLUSH SCH ×2 (08:35→19:41)
[2017-04-27] MEDS: SODIUM CHLORIDE 0.9% FLUSH 10 ML FLUSH IVF SCH (08:35)
[2017-04-27] MEDS: LACTOBACILLUS ACIDOPHILUS TAB PO SCH ×3 (08:35→17:52)
[2017-04-27] MEDS: CHLORHEXIDINE 0.12% (ORAL KIT) 15 ML CUP MT SCH ×2 (08:36→19:41)
[2017-04-27] MEDS: LACTULOSE SYRUP 20 GM/30 ML CUP PO SCH ×2 (12:02→19:40)
--- NOTE | 2017-04-27 13:44 | HHI.CCPN ---
Subjective Remarks/Hospital Course This is a 61-year-old male with a past history of alcohol abuse and a prior admission in 2015 for severe life-threatening hyponatremia at that time with a serum sodium of 98. He presents today with what he states is a 13 day history of worsening fatigue and weakness. He is very altered and is very difficult to understand the patient. What I can understand from him, is that at some point during these 13 days he has fallen and hit his face. Otherwise he states he lays on the couch, and has not gotten not much. He states he drinks 1 beer in the morning, and 1 beer in the afternoon. He does endorse taking some Xanax to help him sleep. He denies other drug use. He denies chest pain, shortness of breath, fever, chills, nausea, vomiting, abdominal pain. It is very difficult to get him to answer anymore questions about his medical history. His speech is very slurred and he is trying to talk about how he misses his daughter. Emergency department he was found to have a serum sodium of 99, a bilirubin of 8.9, lactate of 9.8, ammonia of 60, CK of 7000, elevated troponin of 4.9 with a normal MB ratio, creatinine 1.5, serum bicarbonate of 13. His white count is 12 , platelets 112. INR 1.9. His MELD calculates at 26. 4/2: Sodium level rapidly corrected overnight, likely secondary to appropriate correction of severe life-threatening dehydration. NS fluids changed to 1/2NS and correction slowed down significantly. sodium up to 130 this AM. CK downtrending. however, patient remains severely hypotensive requiring Levophed to maintain a map > 65 mmHg. This AM, serum K 1.6 (confirmed). started replacement with 200meq KCl and recheck K. 03/04: persists in vasoplegic distributive shock. afebrile. no evidence of infection. wbc downtrending. persists with severe life-threatening electrolyte derangements. passed swallow eval for nectar thick liquids. sodium stable at 131. ck downtrending. 03/05: persists in distributive shock. echo yesterday with EF 30%, globally decreased function. milrinone added yesterday with improvement in vasopressor requirement. still with multiple electrolyte abnormalities despite very aggressive replacement. very poor appetite. sodium stable at 131, which appears to be around baseline for him, looking back at prior records. also became agitated and delirious yesterday, likely secondary to etoh withdraw. started on Ativan and Librium. 03/06: electrolyte derangements persist. placed on continuous NaPhos infusion x 24h due to severe life-threatening hypophosphatemia. serial K, phos checks. weaning off levophed, milrinone persists. still poor appetite. sodium jumped from 132 to 139, but no significant mental status change, and we did not increase sodium load. 03/07: still requiring high electrolyte replacement. milrinone weaned to 0.375 mcg /kg/min overnight. still doing well with that. delirium persists. 03/08 Remains on milrinone. Electrolyte improving. Remains very lethargic, intermittently follows commands 03/09: Continues to be lethargic but wakes up follows some commands. Remains on milrinone will DC today. T max 100.1, urine output adequate sodium is 143 03/10: More awake alert, ate 50% of break fast. Will DC Dobhoff. Discontinue arterial and central lines. Delirium also improved, remains weak 03/11: doing much better this morning. no complaints. still with poor appetite. electrolytes improved. 03/20: We consulted for respiratory failure. Patient was last seen in room 1415 CMP receiving oral cares and became acutely hypoxic saturations 82% with coarse breath sounds. Halicat called. Patient was placed on a Venturi mask 50 % with desaturations to the mid 90s. He received Solu-Medrol 20 mg IV 1, Lasix 40 mg IV 1 and was transferred IM [facility] 521. Hemodynamically stable. Poor mentation 03/25: Reconsulted due to respiratory failure. Patient with gurgling/ transmitted upper airway sounds. Respiration the 50s. Decision made to orotracheally intubate. Noted to have been febrile with increased O2 course over the past 48 hours. 03/26: Afebrile. Requiring Nimbex drip for ventilator synchrony. Decreased urine output noted. Hemoglobin decreased likely dilutional. Tolerating tube feeding. Electrolytes been replaced. 03/27: Tmax 100.9. Currently 97.2. +6 L past 24 hours. Hemoglobin 8 transfuse overnight. Potassium 3. We'll discontinue Nimbex drip for vent synchrony today. 03/28: Afebrile. Negative fluid balance past 24 hours. Hemoglobin currently 9. Potassium 3.0. Currently on sedation vacation positive gag and otherwise unresponsive. 03/29: Tmax 103. Currently afebrile. Not tolerating tube feeds. Remains on Kiran-Synephrine. Did not tolerate sedation vacation back on Versed at 5 mg an hour fentanyl drip at 100 mcg an hour. One bowel movement. 03/30 Tube feeds remain on hold. On neosynephrine 40 mcg/min, RN states she has been weaning. Having BMs. On Versed 8 mg/hr and fentanyl 100 mcg/hr. 03/31 Off versed. Remains on fentanyl 100 mcg/hr. Having hiccups. Still on neosynephrine 40 mcg/min. Tolerating trickle feeds. Had 2 bowel movements 04/01: no meaningful change. still requires fentanyl for sedation. still on low- dose vasopressors. 04/02: no changes. still on levo @ 7 mcg/min. unable to wean off fentanyl due to tachycardia and tachypnea. 04/03: Off all sedation. On low-dose norepinephrine. Essentially unresponsive on the ventilator. Plan for likely withdrawal of care tomorrow 04/04: Off all sedation. Off all vasopressors. According to overnight RN was following commands. Will open eyes but not following commands this AM. 04/05 No events overnight. Afebrile On no sedation. 04/06: Resting comfortably in bed. Eyes are open. Moving head back and forth continuously. Weakly following commands with his upper and lower extremities. 04/07: Low-grade temperatures overnight. 99.8. Eyes are open. Moving back and forth. Positive BM. Continues to be following commands. 04/08 Patient remains intubated on no sedation awake and follows commands. Tmax 100.8 04/09 Patient remains intubated, tolerated CPAP all day and had good responses in UO with Bumex yesterday. Afebrile. 04/10: Tmax 99.1. Went back on set rate ventilation yesterday. Will attempt PSV trials throughout the day with goal to attempt extubation tomorrow. 04/11: Tmax 100.2. Currently 100.1. Did not tolerate weaning parameters with NIF -9 and unacceptable RSBI. Patient is arousable and follows commands eyes open 04/12: Omayra care reports tonic-clonic seizure activity this AM. Heart rate in the 140s during episode with violent shaking. On examination, patient's eyes are open and at baseline except currently not following commands. 04/13: had 2 seizures this morning, both resolved without medication interventions. Dr. Fabrizio navas'd at bedside earlier and ordered Cerebyx load. no other changes. plan for trach/peg next week 04/14: still having breakthrough seizures on repeat EEG despite Cerebyx and Keppra. plan for PEG tomorrow. 04/15 No events overnight. Remains intubated. On no sedation. For PEG tube placement today. T:101.2 last night. 04/16 Patient remains intubated. For trach this afternoon. s/p PEG tube placement yesterday. Spiked fever with T:102.5 last night. 04/17 Patient s/p trach yesterday. T: 100.3 at midnight. 04/18 Continues to have low-grade fever. No change in mental status. Sputum Pseudomonas pansensitive. No seizures reported in the last 24 hours 04/19: No fever reported. Slightly more awake and was commands on right upper extremity by squeezing hands very weakly. On CPAP 15/04. Slightly tachypneic 04/20: WBC count slightly elevated today, tachypnea on CPAP. Continues to follow commands weakly on right hand. Intermittently about to wiggle toes. Slight increase in white count to 13,000. Tmax 100.9 ID following 04/21: Tolerated only 1 hour CPAP yesterday. Unable to reduce pressure support. Tmax 99.9 04/22: Remains on mechanical ventilation via tracheostomy. Tolerated C Pap trial for 1 hour yesterday. 04/23: Remains on mechanical ventilation via tracheostomy. Daily C Pap trials ongoing. Tolerating tube feeds. 04/24: Afebrile. Copious edema//swelling extremities. Decreased urine output noted. Remains on mechanical ventilation via trach acid. Daily C Pap trials ongoing. Positive BM. 04/25: Tmax 99.5. With copious edema. Will give 1 additional dose of Bumex today after albumin. Remains on ventilator via tracheostomy. Ongoing CPAP trials. 04/26: Tmax 100. Diuresed yesterday. Remains on ventilator via tracheostomy. Positive BM. Subjective: 04/27: Diuresed well yesterday. Tolerating CPAP trials 4 hours today. Positive BM. Awake and interactive. Objective Vital Signs Date Time Temp Pulse Resp B/P Pulse Ox O2 Delivery O2 Flow Rate FiO2 04/27/17 12:22 99 30 04/27/17 10:00 87 21 110/78 04/27/17 08:00 98.7 Intake and Output 04/26/17 04/26/17 04/27/17 08:00 16:00 00:00 Intake Total 692 ml 990 ml 695 ml Output Total 625 ml 1925 ml 800 ml Balance 67 ml -935 ml -105 ml Result Diagram: 04/27/17 0651 04/27/17 0651 Other Results Microbiology Date/Time Procedure Status Source Growth 04/26/17 13:00 Urine Culture - Preliminary Resulted Urine Clean Catch IMMATURE GROWTH - REINCUBATE Imaging Last Impressions Chest X-Ray 04/22/17 0600 Signed Impressions: Service Date/Time: Saturday, April 22, 2017 03:59 - CONCLUSION: No appreciable change. Bety Castillo MD Abdomen/Pelvis CT 04/16/17 0000 Signed Impressions: Service Date/Time: Sunday, April 16, 2017 11:26 - CONCLUSION: 1. Cirrhosis and splenomegaly. 2. Ascites 3. Anasarca 4. No pancreas mass identified Yinka Harman MD Liver Ultrasound 04/15/17 0000 Signed Impressions: Service Date/Time: Saturday, April 15, 2017 09:24 - CONCLUSION: 1. Abnormal appearance of the pancreas with a nonspecific hypoechoic area involving the posterior part of the pancreas along the head and body region. Recommend CT scan of the abdomen with oral and IV contrast further evaluation. 2. Fatty infiltration throughout the liver. 3. There is thickening of the gallbladder wall at 6 mm. This is suggestive of chronic gallbladder disease. 4. Small amount of free fluid adjacent to the liver and spleen in the upper abdomen.. 5. Right-sided pleural effusion. Víctor Rosas MD Abdomen X-Ray 04/13/17 0000 Signed Impressions: Service Date/Time: Thursday, April 13, 2017 10:36 - CONCLUSION: Dobbhoff tip in distal stomach. No evidence of obstruction. Logan Morgan MD Head CT 04/12/17 0000 Signed Impressions: Service Date/Time: Wednesday, April 12, 2017 21:30 - CONCLUSION: Pontine encephalomalacia. Left mastoiditis. Casper Alva MD Head Magnetic Resonance Angiography 03/28/17 0000 Signed Impressions: Service Date/Time: March 17:22 - CONCLUSION: Unremarkable examination. Bety Castillo MD Brain MRI 03/28/17 0000 Signed Impressions: Service Date/Time: March 17:22 - CONCLUSION: 1. 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 Small subacute ischemic bilateral thalamic infarcts. 2. There has been no significant change when compared to the prior exam. Yinka Harman MD Lower Extremity Ultrasound 03/25/17 0000 Signed Impressions: Service Date/Time: Saturday, March 25, 2017 22:17 - CONCLUSION: No evidence of DVT. Víctor Rosas MD CT Angiography 03/21/17 0000 Signed Impressions: Service Date/Time: March 00:33 - CONCLUSION: No evidence of pulmonary embolism is identified. Mild atelectasis left lung base. Fluid or phlegm within the trachea. Milo Muhammad MD Abdomen Ultrasound 03/20/17 0000 Signed Impressions: Service Date/Time: Monday, March 20, 2017 11:38 - CONCLUSION: 1. Hepatosplenomegaly without focal lesion. 2. Probable sludge within the lumen of the gallbladder. No intrahepatic duct. Cheo Martínez MD Shoulder X-Ray 03/02/17 1404 Signed Impressions: Service Date/Time: Thursday, March 02, 2017 15:18 - CONCLUSION: No evidence of recent bony injury. Deformity of the lateral left clavicle suggests old healed trauma. Cheo Martínez MD Maxillofacial CT 03/02/17 1342 Signed Impressions: Service Date/Time: Thursday, March 02, 2017 14:52 - CONCLUSION: Negative CT of the facial bones. Cheo Martínez MD Chest CT 03/02/17 1342 Signed Impressions: Service Date/Time: Thursday, March 02, 2017 15:04 - CONCLUSION: 1. Abnormal appearance of the lateral left clavicle suggesting a combination of acute and chronic bony injury. Fracture lucencies without bridging callus is seen the region of the coracoid process. 2. The lungs are clear. No evidence of pneumothorax. 3. Moderate size hiatus hernia. Cheo Martínez MD Cervical Spine CT 03/02/17 1342 Signed Impressions: Service Date/Time: Thursday, March 02, 2017 14:52 - CONCLUSION: Negative CT cervical spine. Cheo Martínez MD Objective Remarks GENERAL: 61-year-old chronically ill appearing male, critically ill. HEENT: Healing abrasion left side scalp. TIMOTHY. Scleral icterus. Poor dentition. NECK: Trachea Midline, Trach without bleed RESP: Coarse breath sounds bilaterally. Occasional and extremities. CARDIOVASCULAR: Tachycardia, RR. S1, S2. No S4. ABDOMEN: Slightly distended but soft, bowel sounds present, tolerating tube feeds. G-tube is clear dry and intact : Johns in place with conrad urine output. mild/moderate scrotal edema. MUSCULOSKELETAL: No obvious deformity. 1+ to 2+ edema all extremities NEUROLOGICAL: Eyes are open spontaneously. Following commands on right upper extremity by squeezing hands very weakly. Wiggles toes very weakly A/P Assessment and Plan Neuro/Psych: Osmotic demyelination syndrome Acute toxic metabolic encephalopathy secondary to hypercarbic respiratory failure Alcohol dependence Seizures (History of EtOH induced seizure withdrawal) Chronic benzodiazepine use Bilateral thalamic CVA Off all sedation. oxycodone 5 mg every 4 hours as needed for pain. Ativan 0.5 mg PRN for sz MRI 03/21 - findings consistent with Osmotic demyelination syndrome. ODS most likely from rapid correction of Na, with underlying alcoholism. ( Patient was profoundly hypotensive in shock requiring multiple pressors at that time) MRI brain 03/28 revealed subacute bilateral thalamic lacunar infarcts, ODS. CT head 03/05 revealed no acute intracranial findings Continue thiamine 100 mg daily Seen by neurology/Dr. Mazariegos. EEG previously with persistent. continue Keppra 1000mg BID Respiratory: Acute hypoxemic hypercapnic respiratory failure PRVC 18/550/1.01/06/35. Continue with vent support keep sat >92% Spontaneous breathing trials daily. Currently a PSV trial 11/05 at 40% 4 hours Ventilator bundle, s/p trach 16 Bronchodilator therapy every 6 hours and as needed SBT daily as pablo. Pulm toilet, trach care. Cardiovascular: Chronic Systolic heart failure Echocardiogram 03/04 revealed EF 35-40%. Mild MR. Left atrium dilated. JANE 33 mmHg s/p hydrocortisone. Continue midodrine 10 mg 3 times Monitor HR and BP keep MAP>65mmHg Renal/FEN: Acute Kidney Injury Rhabdomyolysis- resolved ODS-see neuro Hypernatremia - resolving Monitor renal function, I/O's, electrolytes replacement per protocol. DC D5/1/2 NS 04/21 GI: EtOH cirrhosis Hyperammonemia Hiatal hernia Sigmoid diverticulosis Hypoalbuminemia Continue tube feeds via PEG tube-(Jevity 1.5 with goal rate 60ml/hr) s/p PEG tube placement 04/15 CT abdomen/pelvis 04/16: Cirrhosis of liver, splenomegaly, anasarca, ascites(mild ) On Xifaxan 550 twice a day/lactulose 30 twice a day. US Liver 04/15: Abnormal appearance of the pancreas with a nonspecific hypoechoic area involving the posterior part of the pancreas along the head and body region. Fatty infiltration throughout the liver. There is thickening of the gallbladder wall at 6 mm. Suggestive of chronic gallbladder disease. Small amount of free fluid adjacent to the liver and spleen in the upper abdomen. Right-sided pleural effusion. 03/20 Ultrasound liver-hepatosplenomegaly. Sludge in gallbladder On IV Protonix switched to Prevacid Heme: Leukocytosis Macrocytic anemia Monitor CBC. No indications for transfusion of blood proximally postop B12 1452, Folate 15.2. TSH 0.8. ID: Aspiration pneumonia, PSAE in sputum Escherichia coli UTI 03/11 - completed therapy Acinetobacter pneumonia Pertinent cultures 04/26 - urine - immature growth 04/15 Sputum cx: PSAE 04/15 urine cx: Klebsiella 04/15 BC: NGTD 04/12 BC: NGTD 04/08 - blood cultures 2 - no growth 04/08 - sputum - no growth 04/05 - urine -C GLABRATA AND C. ALBICANS 03/29 - blood cultures 2 - NGTD 03/25 - sputum --Acinetobacter. 03/25 - urine - NGTD 03/25 - blood cultures 2 -no growth 03/22 - urine - no growth 03/22 - blood cultures 2 - negative 03/20 - blood cultures 2 - no growth 03/11 - urine - Escherichia coli 03/02 - blood cultures 2 - no growth Followed by Dr. Lisa/ID. Changed Zosyn to cefepime 04/17 Levaquin started 04/20/17 by ID. Complete therapy by 04/30/17 Started Diflucan 100 daily 04/26 Off Flagyl po 03/24 Procalcitonin level: 0.40, C-diff PCR negative 04/10 Endocrine: Hyperglycemia of critical illness History of hypothyroidism SSI with Accu-Cheks every 4 hours to maintain euglycemia MSK: History of old left clavicle fracture PT/OT evaluate and treat Access Peripheral IV. Prophylaxis: GI -Prevacid DVT - SCD/heparin subcutaneous Palliative care is following code status changed to full code per daughter's request. Tamanna Sandhu, daughter/ HCP: from [facility] [phone] now confirmed transferred to [facility] in [place] facility ) Code status -full code CM working on LTAC placement Level 2 Larry Ruby MD April 27, 2017 13:44
[2017-04-27] MEDS ORDERED: ALBUMIN HUMAN 25% 25 GM/100 ML BAGP IV ONE (13:45)
[2017-04-27] MEDS ORDERED: BUMETANIDE INJ 1 MG/4 ML VIAL IV PUSH ONE (13:45)
[2017-04-27] MEDS: HEPARIN SODIUM - SQ 10,000 UNITS/ML VIAL SQ SCH (19:40)
[2017-04-27] MEDS: levETIRAcetam 500 MG/5 ML UDC NG SCH (19:40)
[2017-04-28] VITALS (33 sets, daily range): BP systolic 101–157; BP diastolic 61–96; PULSE 80–122; RESP 16–26; TEMP 98.7–99.3; O2SAT 94–100
[2017-04-28] MEDS: MIDODRINE 5 MG TAB PO SCH ×3 (04:16→22:00)
[2017-04-28] MEDS: RESP: ALBUTEROL 2.5 MG/IPRATROPIUM 0.5 MG NEB (SCH) NEB ×4 (04:24→20:27)
--- NOTE | 2017-04-28 05:26 | RADRPT ---
EXAM DATE/TIME: 04/28/2017 04:27 [place] COMPARISON: CHEST SINGLE AP, April 22, 2017, 3:59. INDICATIONS : Shortness of breath, possible pulmonary disease. MEDICAL HISTORY : Cerebrovascular disease. SURGICAL HISTORY : Craniotomy. ENCOUNTER: Subsequent ACUITY: 1 month PAIN SCORE: Non-responsive. LOCATION: Bilateral chest FINDINGS: Tracheostomy in satisfactory position. Bilateral basilar and perihilar airspace disease. No significa nt effusion. No pneumothorax. CONCLUSION: 1. Bilateral basilar and perihilar air space disease slightly improved on the right. No significant e ffusion. Tracheostomy in satisfactory position Miguel Looney MD on April 28, 2017 at 5:24 Board Certified Radiologist. This report was verified electronically.
[2017-04-28] MEDS: CHLORHEXIDINE 0.12% (ORAL KIT) 15 ML CUP MT SCH ×2 (08:00→22:06)
[2017-04-28] MEDS: NYSTATIN 100,000 U/GM PWD 15 GM BTL TOPICAL SCH ×2 (09:00→21:00)
[2017-04-28] MEDS: THIAMINE HCL 100 MG TAB PO SCH (09:00)
[2017-04-28] MEDS: HEPARIN SODIUM - SQ 10,000 UNITS/ML VIAL SQ SCH ×2 (09:00→21:59)
[2017-04-28] MEDS: LACTOBACILLUS ACIDOPHILUS TAB PO SCH ×3 (09:00→18:00)
[2017-04-28] MEDS: SODIUM CHLORIDE 0.9% FLUSH 10 ML FLUSH IV FLUSH SCH ×2 (09:00→22:01)
[2017-04-28] MEDS: levETIRAcetam 500 MG/5 ML UDC NG SCH ×2 (09:00→22:01)
[2017-04-28] MEDS: INSULIN NovoLIN REGULAR SUPPLEMENTAL SCALE SQ SCH (09:00)
[2017-04-28] MEDS: LANSOPRAZOLE SOLUTAB 30 MG TAB NG SCH (09:00)
[2017-04-28] MEDS: SODIUM CHLORIDE 0.9% FLUSH 10 ML FLUSH IVF SCH (09:00)
[2017-04-28] MEDS: FLUCONAZOLE 100 MG TAB PO SCH (09:00)
[2017-04-28] MEDS: RIFAXIMIN 550 MG TAB PO SCH ×2 (09:00→22:00)
[2017-04-28] MEDS: ARTIFICIAL TEARS OPTH SOLN 15 ML BTL EACH EYE SCH ×3 (09:00→18:00)
[2017-04-28] MEDS: LACTULOSE SYRUP 20 GM/30 ML CUP PO SCH ×2 (09:00→22:01)
[2017-04-28] MEDS: MUPIROCIN 2% OINT 1 APPLIC/GM SYR EACH NARE SCH ×2 (09:00→22:04)
[2017-04-28] MEDS: LEVOFLOXACIN 750 MG TAB PO SCH (09:00)
[2017-04-28 15:43] LABS: BICARBONATE 23.6 MEQ/L (21.0-32.0)
[2017-04-28 18:27] LABS: HEMATOCRIT 24.5 % (39.0-51.0); MEAN CELL VOLUME 99.8 FL (80.0-100.0); MEAN CORPUSCULAR HEMOGLOBIN 33.1 PG (27.0-34.0); MEAN CORPUSCULAR HGB CONC 33.2 % (32.0-36.0); PLATELET COUNT 169 TH/MM3 (150-450); RED BLOOD COUNT 2.45 MIL/MM3 (4.50-5.90); RED CELL DISTRIBUTION WIDTH 15.3 % (11.6-17.2); REVIEW FLAG FINAL; WHITE BLOOD COUNT 13.2 TH/MM3 (4.0-11.0)
--- NOTE | 2017-04-28 21:14 | HHI.CCPN ---
Subjective Remarks/Hospital Course This is a 61-year-old male with a past history of alcohol abuse and a prior admission in 2015 for severe life-threatening hyponatremia at that time with a serum sodium of 98. He presents today with what he states is a 13 day history of worsening fatigue and weakness. He is very altered and is very difficult to understand the patient. What I can understand from him, is that at some point during these 13 days he has fallen and hit his face. Otherwise he states he lays on the couch, and has not gotten not much. He states he drinks 1 beer in the morning, and 1 beer in the afternoon. He does endorse taking some Xanax to help him sleep. He denies other drug use. He denies chest pain, shortness of breath, fever, chills, nausea, vomiting, abdominal pain. It is very difficult to get him to answer anymore questions about his medical history. His speech is very slurred and he is trying to talk about how he misses his daughter. Emergency department he was found to have a serum sodium of 99, a bilirubin of 8.9, lactate of 9.8, ammonia of 60, CK of 7000, elevated troponin of 4.9 with a normal MB ratio, creatinine 1.5, serum bicarbonate of 13. His white count is 12 , platelets 112. INR 1.9. His MELD calculates at 26. 4/2: Sodium level rapidly corrected overnight, likely secondary to appropriate correction of severe life-threatening dehydration. NS fluids changed to 1/2NS and correction slowed down significantly. sodium up to 130 this AM. CK downtrending. however, patient remains severely hypotensive requiring Levophed to maintain a map > 65 mmHg. This AM, serum K 1.6 (confirmed). started replacement with 200meq KCl and recheck K. 03/04: persists in vasoplegic distributive shock. afebrile. no evidence of infection. wbc downtrending. persists with severe life-threatening electrolyte derangements. passed swallow eval for nectar thick liquids. sodium stable at 131. ck downtrending. 03/05: persists in distributive shock. echo yesterday with EF 30%, globally decreased function. milrinone added yesterday with improvement in vasopressor requirement. still with multiple electrolyte abnormalities despite very aggressive replacement. very poor appetite. sodium stable at 131, which appears to be around baseline for him, looking back at prior records. also became agitated and delirious yesterday, likely secondary to etoh withdraw. started on Ativan and Librium. 03/06: electrolyte derangements persist. placed on continuous NaPhos infusion x 24h due to severe life-threatening hypophosphatemia. serial K, phos checks. weaning off levophed, milrinone persists. still poor appetite. sodium jumped from 132 to 139, but no significant mental status change, and we did not increase sodium load. 03/07: still requiring high electrolyte replacement. milrinone weaned to 0.375 mcg /kg/min overnight. still doing well with that. delirium persists. 03/08 Remains on milrinone. Electrolyte improving. Remains very lethargic, intermittently follows commands 03/09: Continues to be lethargic but wakes up follows some commands. Remains on milrinone will DC today. T max 100.1, urine output adequate sodium is 143 03/10: More awake alert, ate 50% of break fast. Will DC Dobhoff. Discontinue arterial and central lines. Delirium also improved, remains weak 03/11: doing much better this morning. no complaints. still with poor appetite. electrolytes improved. 03/20: We consulted for respiratory failure. Patient was last seen in room 1415 CMP receiving oral cares and became acutely hypoxic saturations 82% with coarse breath sounds. Halicat called. Patient was placed on a Venturi mask 50 % with desaturations to the mid 90s. He received Solu-Medrol 20 mg IV 1, Lasix 40 mg IV 1 and was transferred IM [facility] 521. Hemodynamically stable. Poor mentation 03/25: Reconsulted due to respiratory failure. Patient with gurgling/ transmitted upper airway sounds. Respiration the 50s. Decision made to orotracheally intubate. Noted to have been febrile with increased O2 course over the past 48 hours. 03/26: Afebrile. Requiring Nimbex drip for ventilator synchrony. Decreased urine output noted. Hemoglobin decreased likely dilutional. Tolerating tube feeding. Electrolytes been replaced. 03/27: Tmax 100.9. Currently 97.2. +6 L past 24 hours. Hemoglobin 8 transfuse overnight. Potassium 3. We'll discontinue Nimbex drip for vent synchrony today. 03/28: Afebrile. Negative fluid balance past 24 hours. Hemoglobin currently 9. Potassium 3.0. Currently on sedation vacation positive gag and otherwise unresponsive. 03/29: Tmax 103. Currently afebrile. Not tolerating tube feeds. Remains on Kiran-Synephrine. Did not tolerate sedation vacation back on Versed at 5 mg an hour fentanyl drip at 100 mcg an hour. One bowel movement. 03/30 Tube feeds remain on hold. On neosynephrine 40 mcg/min, RN states she has been weaning. Having BMs. On Versed 8 mg/hr and fentanyl 100 mcg/hr. 03/31 Off versed. Remains on fentanyl 100 mcg/hr. Having hiccups. Still on neosynephrine 40 mcg/min. Tolerating trickle feeds. Had 2 bowel movements 04/01: no meaningful change. still requires fentanyl for sedation. still on low- dose vasopressors. 04/02: no changes. still on levo @ 7 mcg/min. unable to wean off fentanyl due to tachycardia and tachypnea. 04/03: Off all sedation. On low-dose norepinephrine. Essentially unresponsive on the ventilator. Plan for likely withdrawal of care tomorrow 04/04: Off all sedation. Off all vasopressors. According to overnight RN was following commands. Will open eyes but not following commands this AM. 04/05 No events overnight. Afebrile On no sedation. 04/06: Resting comfortably in bed. Eyes are open. Moving head back and forth continuously. Weakly following commands with his upper and lower extremities. 04/07: Low-grade temperatures overnight. 99.8. Eyes are open. Moving back and forth. Positive BM. Continues to be following commands. 04/08 Patient remains intubated on no sedation awake and follows commands. Tmax 100.8 04/09 Patient remains intubated, tolerated CPAP all day and had good responses in UO with Bumex yesterday. Afebrile. 04/10: Tmax 99.1. Went back on set rate ventilation yesterday. Will attempt PSV trials throughout the day with goal to attempt extubation tomorrow. 04/11: Tmax 100.2. Currently 100.1. Did not tolerate weaning parameters with NIF -9 and unacceptable RSBI. Patient is arousable and follows commands eyes open 04/12: Omayra care reports tonic-clonic seizure activity this AM. Heart rate in the 140s during episode with violent shaking. On examination, patient's eyes are open and at baseline except currently not following commands. 04/13: had 2 seizures this morning, both resolved without medication interventions. Dr. Fabrizio navas'd at bedside earlier and ordered Cerebyx load. no other changes. plan for trach/peg next week 04/14: still having breakthrough seizures on repeat EEG despite Cerebyx and Keppra. plan for PEG tomorrow. 04/15 No events overnight. Remains intubated. On no sedation. For PEG tube placement today. T:101.2 last night. 04/16 Patient remains intubated. For trach this afternoon. s/p PEG tube placement yesterday. Spiked fever with T:102.5 last night. 04/17 Patient s/p trach yesterday. T: 100.3 at midnight. 04/18 Continues to have low-grade fever. No change in mental status. Sputum Pseudomonas pansensitive. No seizures reported in the last 24 hours 04/19: No fever reported. Slightly more awake and was commands on right upper extremity by squeezing hands very weakly. On CPAP 15/04. Slightly tachypneic 04/20: WBC count slightly elevated today, tachypnea on CPAP. Continues to follow commands weakly on right hand. Intermittently about to wiggle toes. Slight increase in white count to 13,000. Tmax 100.9 ID following 04/21: Tolerated only 1 hour CPAP yesterday. Unable to reduce pressure support. Tmax 99.9 04/22: Remains on mechanical ventilation via tracheostomy. Tolerated C Pap trial for 1 hour yesterday. 04/23: Remains on mechanical ventilation via tracheostomy. Daily C Pap trials ongoing. Tolerating tube feeds. 04/24: Afebrile. Copious edema//swelling extremities. Decreased urine output noted. Remains on mechanical ventilation via trach acid. Daily C Pap trials ongoing. Positive BM. 04/25: Tmax 99.5. With copious edema. Will give 1 additional dose of Bumex today after albumin. Remains on ventilator via tracheostomy. Ongoing CPAP trials. 04/26: Tmax 100. Diuresed yesterday. Remains on ventilator via tracheostomy. Positive BM. 04/27: Diuresed well yesterday. Tolerating CPAP trials 4 hours today. Positive BM. Awake and interactive. Subjective: 04/28: Decreased urine output noted today. Low-grade temperature 99.3. Tolerating CPAP trials for the past 24 hours currently at 18/5 at 40%. Objective Vital Signs Date Time Temp Pulse Resp B/P Pulse Ox O2 Delivery O2 Flow Rate FiO2 04/28/17 20:28 95 30 04/28/17 18:00 101 04/28/17 17:01 25 04/28/17 17:00 119/72 04/28/17 15:00 99.2 04/28/17 08:56 Ventilator Intake and Output 04/27/17 04/27/17 04/28/17 08:00 16:00 00:00 Intake Total 755 ml 870 ml 757 ml Output Total 600 ml 500 ml 1750 ml Balance 155 ml 370 ml -993 ml Result Diagram: 04/28/17 1734 04/28/17 1431 Other Results Microbiology Date/Time Procedure Status Source Growth 04/26/17 13:00 Urine Culture - Final Complete Urine Clean Catch Nuvia Albicans Imaging Last Impressions Chest X-Ray 04/28/17 0600 Signed Impressions: Service Date/Time: Friday, April 28, 2017 04:27 - CONCLUSION: 1. Bilateral basilar and perihilar air space disease slightly improved on the right. No significant effusion. Tracheostomy in satisfactory position Miguel Looney MD Abdomen/Pelvis CT 04/16/17 0000 Signed Impressions: Service Date/Time: Sunday, April 16, 2017 11:26 - CONCLUSION: 1. Cirrhosis and splenomegaly. 2. Ascites 3. Anasarca 4. No pancreas mass identified Yinka Harman MD Liver Ultrasound 04/15/17 0000 Signed Impressions: Service Date/Time: Saturday, April 15, 2017 09:24 - CONCLUSION: 1. Abnormal appearance of the pancreas with a nonspecific hypoechoic area involving the posterior part of the pancreas along the head and body region. Recommend CT scan of the abdomen with oral and IV contrast further evaluation. 2. Fatty infiltration throughout the liver. 3. There is thickening of the gallbladder wall at 6 mm. This is suggestive of chronic gallbladder disease. 4. Small amount of free fluid adjacent to the liver and spleen in the upper abdomen.. 5. Right-sided pleural effusion. Víctor Rosas MD Abdomen X-Ray 04/13/17 0000 Signed Impressions: Service Date/Time: Thursday, April 13, 2017 10:36 - CONCLUSION: Dobbhoff tip in distal stomach. No evidence of obstruction. Logan Morgan MD Head CT 04/12/17 0000 Signed Impressions: Service Date/Time: Wednesday, April 12, 2017 21:30 - CONCLUSION: Pontine encephalomalacia. Left mastoiditis. Casper Alva MD Head Magnetic Resonance Angiography 03/28/17 0000 Signed Impressions: Service Date/Time: March 17:22 - CONCLUSION: Unremarkable examination. Bety Castillo MD Brain MRI 03/28/17 0000 Signed Impressions: Service Date/Time: March 17:22 - CONCLUSION: 1. 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 Small subacute ischemic bilateral thalamic infarcts. 2. There has been no significant change when compared to the prior exam. Yinka Harman MD Lower Extremity Ultrasound 03/25/17 0000 Signed Impressions: Service Date/Time: Saturday, March 25, 2017 22:17 - CONCLUSION: No evidence of DVT. Víctor Rosas MD CT Angiography 03/21/17 0000 Signed Impressions: Service Date/Time: March 00:33 - CONCLUSION: No evidence of pulmonary embolism is identified. Mild atelectasis left lung base. Fluid or phlegm within the trachea. Milo Muhammad MD Abdomen Ultrasound 03/20/17 0000 Signed Impressions: Service Date/Time: Monday, March 20, 2017 11:38 - CONCLUSION: 1. Hepatosplenomegaly without focal lesion. 2. Probable sludge within the lumen of the gallbladder. No intrahepatic duct. Cheo Martínez MD Shoulder X-Ray 03/02/17 1404 Signed Impressions: Service Date/Time: Thursday, March 02, 2017 15:18 - CONCLUSION: No evidence of recent bony injury. Deformity of the lateral left clavicle suggests old healed trauma. Cheo Martínez MD Maxillofacial CT 03/02/17 1342 Signed Impressions: Service Date/Time: Thursday, March 02, 2017 14:52 - CONCLUSION: Negative CT of the facial bones. Cheo Martínez MD Chest CT 03/02/17 1342 Signed Impressions: Service Date/Time: Thursday, March 02, 2017 15:04 - CONCLUSION: 1. Abnormal appearance of the lateral left clavicle suggesting a combination of acute and chronic bony injury. Fracture lucencies without bridging callus is seen the region of the coracoid process. 2. The lungs are clear. No evidence of pneumothorax. 3. Moderate size hiatus hernia. Cheo Martínez MD Cervical Spine CT 03/02/17 1342 Signed Impressions: Service Date/Time: Thursday, March 02, 2017 14:52 - CONCLUSION: Negative CT cervical spine. Cheo Martínez MD Objective Remarks GENERAL: 61-year-old chronically ill appearing male, critically ill. HEENT: Healing abrasion left side scalp. TIMOTHY. Scleral icterus. Poor dentition. NECK: Trachea Midline, Trach without bleed RESP: Coarse breath sounds bilaterally. Occasional and extremities. CARDIOVASCULAR: Tachycardia, RR. S1, S2. No S4. ABDOMEN: Slightly distended but soft, bowel sounds present, tolerating tube feeds. G-tube is clear dry and intact : Johns in place with conrad urine output. mild/moderate scrotal edema. MUSCULOSKELETAL: No obvious deformity. 1+ to 2+ edema all extremities NEUROLOGICAL: Eyes are open spontaneously. Following commands on right upper extremity by squeezing hands very weakly. Wiggles toes very weakly A/P Assessment and Plan Neuro/Psych: Osmotic demyelination syndrome Acute toxic metabolic encephalopathy secondary to hypercarbic respiratory failure Alcohol dependence Seizures (History of EtOH induced seizure withdrawal) Chronic benzodiazepine use Bilateral thalamic CVA Off all sedation. oxycodone 5 mg every 4 hours as needed for pain. Ativan 0.5 mg PRN for sz MRI 03/21 - findings consistent with Osmotic demyelination syndrome. ODS most likely from rapid correction of Na, with underlying alcoholism. ( Patient was profoundly hypotensive in shock requiring multiple pressors at that time) MRI brain 03/28 revealed subacute bilateral thalamic lacunar infarcts, ODS. CT head 03/05 revealed no acute intracranial findings Continue thiamine 100 mg daily Seen by neurology/Dr. Mazariegos. EEG previously with persistent. continue Keppra 1000mg BID Respiratory: Acute hypoxemic hypercapnic respiratory failure PRVC 18/550/1.2/35. Continue with vent support keep sat >92% Spontaneous breathing trials daily. Currently a PSV trial 11/05 at 40% 4 hours Ventilator bundle, s/p trach 04/16 Bronchodilator therapy every 6 hours and as needed SBT daily as pablo. Pulm toilet, trach care. Cardiovascular: Chronic Systolic heart failure Echocardiogram 03/04 revealed EF 35-40%. Mild MR. Left atrium dilated. JANE 33 mmHg s/p hydrocortisone. Continue midodrine 10 mg 3 times Monitor HR and BP keep MAP>65mmHg Renal/FEN: Acute Kidney Injury Rhabdomyolysis- resolved ODS-see neuro Hypernatremia - resolving Monitor renal function, I/O's, electrolytes replacement per protocol. DC D5/12/03 NS 04/21 GI: EtOH cirrhosis Hyperammonemia Hiatal hernia Sigmoid diverticulosis Hypoalbuminemia Continue tube feeds via PEG tube-(Jevity 1.5 with goal rate 60ml/hr) s/p PEG tube placement 04/15 CT abdomen/pelvis 04/16: Cirrhosis of liver, splenomegaly, anasarca, ascites(mild ) On Xifaxan 550 twice a day/lactulose 30 twice a day. US Liver 04/15: Abnormal appearance of the pancreas with a nonspecific hypoechoic area involving the posterior part of the pancreas along the head and body region. Fatty infiltration throughout the liver. There is thickening of the gallbladder wall at 6 mm. Suggestive of chronic gallbladder disease. Small amount of free fluid adjacent to the liver and spleen in the upper abdomen. Right-sided pleural effusion. 03/20 Ultrasound liver-hepatosplenomegaly. Sludge in gallbladder On IV Protonix switched to Prevacid Heme: Leukocytosis Macrocytic anemia - now normocytic Monitor CBC. No indications for transfusion of blood proximally postop B12 1452, Folate 15.2. TSH 0.8. ID: Aspiration pneumonia, PSAE in sputum Escherichia coli UTI 03/11 - completed therapy Acinetobacter pneumonia Pertinent cultures 04/26 - urine -C. albicans 04/15 Sputum cx: PSAE 04/15 urine cx: Klebsiella 04/15 BC: NGTD 04/12 BC: NGTD 04/08 - blood cultures 2 - no growth 04/08 - sputum - no growth 04/05 - urine -C GLABRATA AND C. ALBICANS 03/29 - blood cultures 2 - NGTD 03/25 - sputum --Acinetobacter. 03/25 - urine - NGTD 03/25 - blood cultures 2 -no growth 03/22 - urine - no growth 03/22 - blood cultures 2 - negative 03/20 - blood cultures 2 - no growth 03/11 - urine - Escherichia coli 03/02 - blood cultures 2 - no growth Followed by Dr. Lisa/ID. Changed Zosyn to cefepime 04/17 Levaquin started 04/20/17 by ID. Complete therapy by 04/30/17 Started Diflucan 100 daily 04/26 for C. albicans funguria Off Flagyl po 03/24 Procalcitonin level: 0.40, C-diff PCR negative 04/10 Endocrine: Hyperglycemia of critical illness History of hypothyroidism SSI with Accu-Cheks every 4 hours to maintain euglycemia MSK: History of old left clavicle fracture PT/OT evaluate and treat Access Peripheral IV. Prophylaxis: GI -Prevacid DVT - SCD/heparin subcutaneous Palliative care is following code status changed to full code per daughter's request. Tamanna Sandhu, daughter/ HCP: from [facility] [phone] now confirmed transferred to [facility] in [place] facility ) Code status -full code CM working on LTAC placement Level 2 Larry Ruby MD April 28, 2017 21:14
[2017-04-28] MEDS ORDERED: ALBUMIN HUMAN 25% 25 GM/100 ML BAGP IV ONE (21:15)
[2017-04-28] MEDS ORDERED: FUROSEMIDE 40 MG/4 ML VIAL IV PUSH ONE (21:15)
[2017-04-29] VITALS (27 sets, daily range): BP systolic 94–145; BP diastolic 57–87; PULSE 94–118; RESP 14–25; TEMP 98.4–98.8; O2SAT 90–100
[2017-04-29] MEDS: RESP: ALBUTEROL 2.5 MG/IPRATROPIUM 0.5 MG NEB (SCH) NEB ×4 (03:31→20:43)
[2017-04-29 06:12] LABS: HEMATOCRIT 22.5 % (39.0-51.0); MEAN CELL VOLUME 98.3 FL (80.0-100.0); MEAN CORPUSCULAR HEMOGLOBIN 33.6 PG (27.0-34.0); MEAN CORPUSCULAR HGB CONC 34.2 % (32.0-36.0); PLATELET COUNT 179 TH/MM3 (150-450); RED BLOOD COUNT 2.28 MIL/MM3 (4.50-5.90); RED CELL DISTRIBUTION WIDTH 15.4 % (11.6-17.2); REVIEW FLAG FINAL; WHITE BLOOD COUNT 13.8 TH/MM3 (4.0-11.0)
[2017-04-29 06:54] LABS: BICARBONATE 27.5 MEQ/L (21.0-32.0); POTASSIUM 3.4 MEQ/L (3.5-5.1)
--- NOTE | 2017-04-29 07:09 | RADRPT ---
EXAM DATE/TIME: 04/29/2017 06:19 [place] COMPARISON: CHEST SINGLE AP, April 28, 2017, 4:27. INDICATIONS : Respiratory failure. MEDICAL HISTORY : None. SURGICAL HISTORY : None. ENCOUNTER: Subsequent ACUITY: 3 days PAIN SCORE: Non-responsive. LOCATION: Bilateral chest FINDINGS: Tracheostomy is stable in position. Mild bilateral perihilar and basilar parenchymal opacities are gr ossly unchanged. There are contours are stable accounting for rotation. CONCLUSION: No significant change Casper Alva MD on April 29, 2017 at 7:07 Board Certified Radiologist. This report was verified electronically.
[2017-04-29] MEDS: INSULIN NovoLIN REGULAR SUPPLEMENTAL SCALE SQ SCH ×2 (09:00→21:00)
[2017-04-29] MEDS: THIAMINE HCL 100 MG TAB PO SCH (09:00)
[2017-04-29] MEDS: NYSTATIN 100,000 U/GM PWD 15 GM BTL TOPICAL SCH ×2 (09:00→21:47)
[2017-04-29] MEDS: SODIUM CHLORIDE 0.9% FLUSH 10 ML FLUSH IV FLUSH SCH ×2 (09:00→21:46)
[2017-04-29] MEDS: SODIUM CHLORIDE 0.9% FLUSH 10 ML FLUSH IVF SCH (09:00)
[2017-04-29] MEDS: ARTIFICIAL TEARS OPTH SOLN 15 ML BTL EACH EYE SCH ×3 (09:00→18:00)
[2017-04-29] MEDS: LACTOBACILLUS ACIDOPHILUS TAB PO SCH ×3 (09:00→18:00)
[2017-04-29] MEDS: FLUCONAZOLE 100 MG TAB PO SCH (09:23)
[2017-04-29] MEDS: HEPARIN SODIUM - SQ 10,000 UNITS/ML VIAL SQ SCH ×2 (09:23→21:45)
[2017-04-29] MEDS: LACTULOSE SYRUP 20 GM/30 ML CUP PO SCH ×2 (09:23→21:45)
[2017-04-29] MEDS: RIFAXIMIN 550 MG TAB PO SCH ×2 (09:23→21:46)
[2017-04-29] MEDS: CHLORHEXIDINE 0.12% (ORAL KIT) 15 ML CUP MT SCH ×2 (09:23→21:45)
[2017-04-29] MEDS: LEVOFLOXACIN 750 MG TAB PO SCH (09:24)
[2017-04-29] MEDS: levETIRAcetam 500 MG/5 ML UDC NG SCH ×2 (09:24→21:45)
[2017-04-29] MEDS: LANSOPRAZOLE SOLUTAB 30 MG TAB NG SCH (09:24)
[2017-04-29] MEDS: MUPIROCIN 2% OINT 1 APPLIC/GM SYR EACH NARE SCH ×2 (09:24→21:46)
[2017-04-29] MEDS: POTASSIUM CHLOR 20 MEQ PREMIX 100 ML IV PRN (09:54)
--- NOTE | 2017-04-29 13:23 | HHI.IDPN ---
Subjective Subjective Remarks ID X cover for Dr Lisa RN reports low grade fevers < 100 and green ETT secretions On CPAP WBC slowly going up 13.8 K today Antibiotics Levaquin fluconazole Lines PIV Past Medical History ETOHism Allergies: Coded Allergies: PEANUTS (Unverified Allergy, Severe, 03/02/17) *MDRO Multi-Drug Resistant Organism (Verified Adverse Reaction, Unknown, ) MRSA PCR screen POSITIVE - 03/02/17 MDR Acinetobacter (sputum) - 03/25/17 Objective . Vital Signs Date Time Temp Pulse Resp B/P Pulse Ox O2 Delivery O2 Flow Rate FiO2 04/29/17 12:57 96 30 04/29/17 12:45 99 22 95 04/29/17 12:00 95 04/29/17 12:00 30 04/29/17 10:00 99 04/29/17 09:57 97 30 04/29/17 09:00 98 24 106/70 96 04/29/17 08:50 95 30 04/29/17 08:50 30 04/29/17 08:30 30 04/29/17 08:00 98.5 100 14 105/67 92 04/29/17 08:00 97 04/29/17 07:36 93 30 04/29/17 07:00 104 21 108/69 04/29/17 06:00 100 04/29/17 04:00 98.8 109 22 145/87 99 04/29/17 04:00 104 04/29/17 04:00 30 04/29/17 04:00 98.8 104 18 94/60 90 04/29/17 03:31 95 30 04/29/17 02:00 109 04/29/17 00:00 118 04/29/17 00:00 98.4 118 20 109/66 92 04/29/17 00:00 30 04/28/17 23:58 94 30 04/28/17 22:00 122 04/28/17 20:28 95 30 04/28/17 20:00 113 04/28/17 20:00 30 04/28/17 20:00 98.7 109 22 145/87 99 04/28/17 18:00 101 04/28/17 17:03 100 30 04/28/17 17:01 98 25 96 04/28/17 17:00 98 20 119/72 96 04/28/17 16:01 101 21 98 04/28/17 16:00 101 19 139/76 97 04/28/17 16:00 30 04/28/17 16:00 99 04/28/17 15:01 97 19 100 04/28/17 15:00 99.2 99 24 157/89 99 04/28/17 14:00 94 18 116/77 98 04/28/17 14:00 89 04/28/17 04/28/17 04/29/17 15:00 23:00 07:00 Intake Total 614 ml 675 ml 460 ml Output Total 500 ml 500 ml 550 ml Balance 114 ml 175 ml -90 ml IV Total 114 ml Tube Feeding 400 ml 415 ml 400 ml Albumin 100 ml Other 100 ml 160 ml 60 ml Output Urine Total 375 ml 400 ml 350 ml Stool Total 125 ml 100 ml 200 ml Tube Feeding Residual Discard 0 ml 0 ml . Laboratory Tests Test 04/28/17 04/29/17 17:34 04:56 White Blood Count 13.2 TH/MM3 13.8 TH/MM3 Red Blood Count 2.45 MIL/MM3 2.28 MIL/MM3 Hemoglobin 8.1 GM/DL 7.7 GM/DL Hematocrit 24.5 % 22.5 % Mean Corpuscular Volume 99.8 FL 98.3 FL Mean Corpuscular Hemoglobin 33.1 PG 33.6 PG Mean Corpuscular Hemoglobin 33.2 % 34.2 % Concent Red Cell Distribution Width 15.3 % 15.4 % Platelet Count 169 TH/MM3 179 TH/MM3 Mean Platelet Volume 9.8 FL 8.9 FL Laboratory Tests Test 04/28/17 04/29/17 14:31 04:56 Sodium Level 140 MEQ/L 140 MEQ/L Potassium Level 5.0 MEQ/L 3.4 MEQ/L Chloride Level 105 MEQ/L 104 MEQ/L Carbon Dioxide Level 23.6 MEQ/L 27.5 MEQ/L Anion Gap 11 MEQ/L 9 MEQ/L Blood Urea Nitrogen 12 MG/DL 11 MG/DL Creatinine 0.25 MG/DL 0.22 MG/DL Estimat Glomerular Filtration 379 ML/MIN 439 ML/MIN Rate Random Glucose 115 MG/DL 87 MG/DL Calcium Level 8.5 MG/DL 8.3 MG/DL Imaging Last Impressions Chest X-Ray 04/29/17 0600 Signed Impressions: Service Date/Time: Saturday, April 29, 2017 06:19 - CONCLUSION: No significant change Casper Alva MD Abdomen/Pelvis CT 04/16/17 0000 Signed Impressions: Service Date/Time: Sunday, April 16, 2017 11:26 - CONCLUSION: 1. Cirrhosis and splenomegaly. 2. Ascites 3. Anasarca 4. No pancreas mass identified Yinka Harman MD Liver Ultrasound 04/15/17 0000 Signed Impressions: Service Date/Time: Saturday, April 15, 2017 09:24 - CONCLUSION: 1. Abnormal appearance of the pancreas with a nonspecific hypoechoic area involving the posterior part of the pancreas along the head and body region. Recommend CT scan of the abdomen with oral and IV contrast further evaluation. 2. Fatty infiltration throughout the liver. 3. There is thickening of the gallbladder wall at 6 mm. This is suggestive of chronic gallbladder disease. 4. Small amount of free fluid adjacent to the liver and spleen in the upper abdomen.. 5. Right-sided pleural effusion. Víctor Rosas MD Abdomen X-Ray 04/13/17 0000 Signed Impressions: Service Date/Time: Thursday, April 13, 2017 10:36 - CONCLUSION: Dobbhoff tip in distal stomach. No evidence of obstruction. Logan Morgan MD Head CT 04/12/17 0000 Signed Impressions: Service Date/Time: Wednesday, April 12, 2017 21:30 - CONCLUSION: Pontine encephalomalacia. Left mastoiditis. Casper Alva MD Head Magnetic Resonance Angiography 03/28/17 0000 Signed Impressions: Service Date/Time: March 17:22 - CONCLUSION: Unremarkable examination. Bety Castillo MD Brain MRI 03/28/17 0000 Signed Impressions: Service Date/Time: March 17:22 - CONCLUSION: 1. 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 Small subacute ischemic bilateral thalamic infarcts. 2. There has been no significant change when compared to the prior exam. Yinka Harman MD Lower Extremity Ultrasound 03/25/17 0000 Signed Impressions: Service Date/Time: Saturday, March 25, 2017 22:17 - CONCLUSION: No evidence of DVT. Víctor Rosas MD CT Angiography 03/21/17 0000 Signed Impressions: Service Date/Time: March 00:33 - CONCLUSION: No evidence of pulmonary embolism is identified. Mild atelectasis left lung base. Fluid or phlegm within the trachea. Milo Muhammad MD Abdomen Ultrasound 03/20/17 0000 Signed Impressions: Service Date/Time: Monday, March 20, 2017 11:38 - CONCLUSION: 1. Hepatosplenomegaly without focal lesion. 2. Probable sludge within the lumen of the gallbladder. No intrahepatic duct. Cheo Martínez MD Shoulder X-Ray 03/02/17 1404 Signed Impressions: Service Date/Time: Thursday, March 02, 2017 15:18 - CONCLUSION: No evidence of recent bony injury. Deformity of the lateral left clavicle suggests old healed trauma. Cheo Martínez MD Maxillofacial CT 03/02/17 1342 Signed Impressions: Service Date/Time: Thursday, March 02, 2017 14:52 - CONCLUSION: Negative CT of the facial bones. Cheo Martínez MD Chest CT 03/02/17 1342 Signed Impressions: Service Date/Time: Thursday, March 02, 2017 15:04 - CONCLUSION: 1. Abnormal appearance of the lateral left clavicle suggesting a combination of acute and chronic bony injury. Fracture lucencies without bridging callus is seen the region of the coracoid process. 2. The lungs are clear. No evidence of pneumothorax. 3. Moderate size hiatus hernia. Cheo Martínez MD Cervical Spine CT 03/02/17 1342 Signed Impressions: Service Date/Time: Thursday, March 02, 2017 14:52 - CONCLUSION: Negative CT cervical spine. Cheo Martínez MD Physical Exam GENERAL: Awakens easily, focusing, following some commands, on the vent, NAD SKIN: Warm and dry. Facial rash cw seborreic dermitis HEENT: Pupils equal round and reactive. Poor dentition. A lot of oral secretions NECK: Supple, nontender, no meningeal signs. Previous line site ok. Trach site ok, has moderate green secretions around it CARDIOVASCULAR: Regular rate and rhythm without murmurs, gallops, or rubs. RESPIRATORY: Scattered rhonchi GASTROINTESTINAL: Abdomen mildly distended, bowel sounds are present and normoactive, not tender. PEG site ok MUSCULOSKELETAL: Lower extremities without clubbing, cyanosis. + 2-3 edema. NEUROLOGICAL: Awake and focusing; trying to communicate : Johns cath in place, urine looks clear Scrotum edematous LINE: PIV no evidence of infection Assessment & Plan Remarks IMPRESSION Sepsis syndrome, due to PNA, improving - on vent - has MDR Acinetobacter, S/P RX MDR Acinetobacter PNA - S/P Rx Recurrent fevers, etiology? - intermittent - has UTI - CXR stable infiltrates; atelectasis - ?drug fever (anticonvulsants) Kleb UTI New VAP, has PSAE Septic shock, BP better, off pressors Known ETOH abuse Encephalopathy - sepsis, ETOH, CPM Respiratory failure - S/P trach Diarrhea, C diff negative, volume decreased Seizures, controlled - ?due to CPM - per records had ETOH withdrawal SZ RECOMMENDATION Follow temps, WBC UA and C/S Monitor progress Weaning as tolerated per CCM Being evaluated for LTAC Continue Levaquin - plan to complete RX 04/30 cont short course Diflucan monitor UOP rechk sputum clx Bárbara Adams MD April 29, 2017 13:23
[2017-04-29] MEDS: MIDODRINE 5 MG TAB PO SCH ×2 (14:00→21:46)
--- NOTE | 2017-04-29 14:24 | HHI.CCPN ---
Subjective Remarks/Hospital Course This is a 61-year-old male with a past history of alcohol abuse and a prior admission in 2015 for severe life-threatening hyponatremia at that time with a serum sodium of 98. He presents today with what he states is a 13 day history of worsening fatigue and weakness. He is very altered and is very difficult to understand the patient. What I can understand from him, is that at some point during these 13 days he has fallen and hit his face. Otherwise he states he lays on the couch, and has not gotten not much. He states he drinks 1 beer in the morning, and 1 beer in the afternoon. He does endorse taking some Xanax to help him sleep. He denies other drug use. He denies chest pain, shortness of breath, fever, chills, nausea, vomiting, abdominal pain. It is very difficult to get him to answer anymore questions about his medical history. His speech is very slurred and he is trying to talk about how he misses his daughter. Emergency department he was found to have a serum sodium of 99, a bilirubin of 8.9, lactate of 9.8, ammonia of 60, CK of 7000, elevated troponin of 4.9 with a normal MB ratio, creatinine 1.5, serum bicarbonate of 13. His white count is 12 , platelets 112. INR 1.9. His MELD calculates at 26. 4/2: Sodium level rapidly corrected overnight, likely secondary to appropriate correction of severe life-threatening dehydration. NS fluids changed to 1/2NS and correction slowed down significantly. sodium up to 130 this AM. CK downtrending. however, patient remains severely hypotensive requiring Levophed to maintain a map > 65 mmHg. This AM, serum K 1.6 (confirmed). started replacement with 200meq KCl and recheck K. 03/04: persists in vasoplegic distributive shock. afebrile. no evidence of infection. wbc downtrending. persists with severe life-threatening electrolyte derangements. passed swallow eval for nectar thick liquids. sodium stable at 131. ck downtrending. 03/05: persists in distributive shock. echo yesterday with EF 30%, globally decreased function. milrinone added yesterday with improvement in vasopressor requirement. still with multiple electrolyte abnormalities despite very aggressive replacement. very poor appetite. sodium stable at 131, which appears to be around baseline for him, looking back at prior records. also became agitated and delirious yesterday, likely secondary to etoh withdraw. started on Ativan and Librium. 03/06: electrolyte derangements persist. placed on continuous NaPhos infusion x 24h due to severe life-threatening hypophosphatemia. serial K, phos checks. weaning off levophed, milrinone persists. still poor appetite. sodium jumped from 132 to 139, but no significant mental status change, and we did not increase sodium load. 03/07: still requiring high electrolyte replacement. milrinone weaned to 0.375 mcg /kg/min overnight. still doing well with that. delirium persists. 03/08 Remains on milrinone. Electrolyte improving. Remains very lethargic, intermittently follows commands 03/09: Continues to be lethargic but wakes up follows some commands. Remains on milrinone will DC today. T max 100.1, urine output adequate sodium is 143 03/10: More awake alert, ate 50% of break fast. Will DC Dobhoff. Discontinue arterial and central lines. Delirium also improved, remains weak 03/11: doing much better this morning. no complaints. still with poor appetite. electrolytes improved. 03/20: We consulted for respiratory failure. Patient was last seen in room 1415 CMP receiving oral cares and became acutely hypoxic saturations 82% with coarse breath sounds. Halicat called. Patient was placed on a Venturi mask 50 % with desaturations to the mid 90s. He received Solu-Medrol 20 mg IV 1, Lasix 40 mg IV 1 and was transferred IM [facility] 521. Hemodynamically stable. Poor mentation 03/25: Reconsulted due to respiratory failure. Patient with gurgling/ transmitted upper airway sounds. Respiration the 50s. Decision made to orotracheally intubate. Noted to have been febrile with increased O2 course over the past 48 hours. 03/26: Afebrile. Requiring Nimbex drip for ventilator synchrony. Decreased urine output noted. Hemoglobin decreased likely dilutional. Tolerating tube feeding. Electrolytes been replaced. 03/27: Tmax 100.9. Currently 97.2. +6 L past 24 hours. Hemoglobin 8 transfuse overnight. Potassium 3. We'll discontinue Nimbex drip for vent synchrony today. 03/28: Afebrile. Negative fluid balance past 24 hours. Hemoglobin currently 9. Potassium 3.0. Currently on sedation vacation positive gag and otherwise unresponsive. 03/29: Tmax 103. Currently afebrile. Not tolerating tube feeds. Remains on Kiran-Synephrine. Did not tolerate sedation vacation back on Versed at 5 mg an hour fentanyl drip at 100 mcg an hour. One bowel movement. 03/30 Tube feeds remain on hold. On neosynephrine 40 mcg/min, RN states she has been weaning. Having BMs. On Versed 8 mg/hr and fentanyl 100 mcg/hr. 03/31 Off versed. Remains on fentanyl 100 mcg/hr. Having hiccups. Still on neosynephrine 40 mcg/min. Tolerating trickle feeds. Had 2 bowel movements 04/01: no meaningful change. still requires fentanyl for sedation. still on low- dose vasopressors. 04/02: no changes. still on levo @ 7 mcg/min. unable to wean off fentanyl due to tachycardia and tachypnea. 04/03: Off all sedation. On low-dose norepinephrine. Essentially unresponsive on the ventilator. Plan for likely withdrawal of care tomorrow 04/04: Off all sedation. Off all vasopressors. According to overnight RN was following commands. Will open eyes but not following commands this AM. 04/05 No events overnight. Afebrile On no sedation. 04/06: Resting comfortably in bed. Eyes are open. Moving head back and forth continuously. Weakly following commands with his upper and lower extremities. 04/07: Low-grade temperatures overnight. 99.8. Eyes are open. Moving back and forth. Positive BM. Continues to be following commands. 04/08 Patient remains intubated on no sedation awake and follows commands. Tmax 100.8 04/09 Patient remains intubated, tolerated CPAP all day and had good responses in UO with Bumex yesterday. Afebrile. 04/10: Tmax 99.1. Went back on set rate ventilation yesterday. Will attempt PSV trials throughout the day with goal to attempt extubation tomorrow. 04/11: Tmax 100.2. Currently 100.1. Did not tolerate weaning parameters with NIF -9 and unacceptable RSBI. Patient is arousable and follows commands eyes open 04/12: Omayra care reports tonic-clonic seizure activity this AM. Heart rate in the 140s during episode with violent shaking. On examination, patient's eyes are open and at baseline except currently not following commands. 04/13: had 2 seizures this morning, both resolved without medication interventions. Dr. Fabrizio navas'd at bedside earlier and ordered Cerebyx load. no other changes. plan for trach/peg next week 04/14: still having breakthrough seizures on repeat EEG despite Cerebyx and Keppra. plan for PEG tomorrow. 04/15 No events overnight. Remains intubated. On no sedation. For PEG tube placement today. T:101.2 last night. 04/16 Patient remains intubated. For trach this afternoon. s/p PEG tube placement yesterday. Spiked fever with T:102.5 last night. 04/17 Patient s/p trach yesterday. T: 100.3 at midnight. 04/18 Continues to have low-grade fever. No change in mental status. Sputum Pseudomonas pansensitive. No seizures reported in the last 24 hours 04/19: No fever reported. Slightly more awake and was commands on right upper extremity by squeezing hands very weakly. On CPAP 15/04. Slightly tachypneic 04/20: WBC count slightly elevated today, tachypnea on CPAP. Continues to follow commands weakly on right hand. Intermittently about to wiggle toes. Slight increase in white count to 13,000. Tmax 100.9 ID following 04/21: Tolerated only 1 hour CPAP yesterday. Unable to reduce pressure support. Tmax 99.9 04/22: Remains on mechanical ventilation via tracheostomy. Tolerated C Pap trial for 1 hour yesterday. 04/23: Remains on mechanical ventilation via tracheostomy. Daily C Pap trials ongoing. Tolerating tube feeds. 04/24: Afebrile. Copious edema//swelling extremities. Decreased urine output noted. Remains on mechanical ventilation via trach acid. Daily C Pap trials ongoing. Positive BM. 04/25: Tmax 99.5. With copious edema. Will give 1 additional dose of Bumex today after albumin. Remains on ventilator via tracheostomy. Ongoing CPAP trials. 04/26: Tmax 100. Diuresed yesterday. Remains on ventilator via tracheostomy. Positive BM. 04/27: Diuresed well yesterday. Tolerating CPAP trials 4 hours today. Positive BM. Awake and interactive. Subjective: 04/28: Decreased urine output noted today. Low-grade temperature 99.3. Tolerating CPAP trials for the past 24 hours currently at 18/5 at 40%. 04/29: Awake and alert. Tolerating C Pap trials. Objective Vital Signs Date Time Temp Pulse Resp B/P Pulse Ox O2 Delivery O2 Flow Rate FiO2 04/29/17 12:57 96 30 04/29/17 12:45 99 22 04/29/17 09:00 106/70 04/29/17 08:00 98.5 04/28/17 08:56 Ventilator Intake and Output 04/28/17 04/28/17 04/29/17 08:00 16:00 00:00 Intake Total 725 ml 614 ml 675 ml Output Total 650 ml 500 ml 500.0 ml Balance 75 ml 114 ml 175.0 ml Result Diagram: 04/29/17 0456 04/29/17 0456 Imaging Last Impressions Chest X-Ray 04/28/17 0600 Signed Impressions: Service Date/Time: Friday, April 28, 2017 04:27 - CONCLUSION: 1. Bilateral basilar and perihilar air space disease slightly improved on the right. No significant effusion. Tracheostomy in satisfactory position Miguel Looney MD Abdomen/Pelvis CT 04/16/17 0000 Signed Impressions: Service Date/Time: Sunday, April 16, 2017 11:26 - CONCLUSION: 1. Cirrhosis and splenomegaly. 2. Ascites 3. Anasarca 4. No pancreas mass identified Yinka Harman MD Liver Ultrasound 04/15/17 0000 Signed Impressions: Service Date/Time: Saturday, April 15, 2017 09:24 - CONCLUSION: 1. Abnormal appearance of the pancreas with a nonspecific hypoechoic area involving the posterior part of the pancreas along the head and body region. Recommend CT scan of the abdomen with oral and IV contrast further evaluation. 2. Fatty infiltration throughout the liver. 3. There is thickening of the gallbladder wall at 6 mm. This is suggestive of chronic gallbladder disease. 4. Small amount of free fluid adjacent to the liver and spleen in the upper abdomen.. 5. Right-sided pleural effusion. Víctor Rosas MD Abdomen X-Ray 04/13/17 0000 Signed Impressions: Service Date/Time: Thursday, April 13, 2017 10:36 - CONCLUSION: Dobbhoff tip in distal stomach. No evidence of obstruction. Logan Morgan MD Head CT 04/12/17 0000 Signed Impressions: Service Date/Time: Wednesday, April 12, 2017 21:30 - CONCLUSION: Pontine encephalomalacia. Left mastoiditis. Casper Alva MD Head Magnetic Resonance Angiography 03/28/17 0000 Signed Impressions: Service Date/Time: March 17:22 - CONCLUSION: Unremarkable examination. Bety Castillo MD Brain MRI 03/28/17 0000 Signed Impressions: Service Date/Time: March 17:22 - CONCLUSION: 1. 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 Small subacute ischemic bilateral thalamic infarcts. 2. There has been no significant change when compared to the prior exam. Yinka Harman MD Lower Extremity Ultrasound 03/25/17 0000 Signed Impressions: Service Date/Time: Saturday, March 25, 2017 22:17 - CONCLUSION: No evidence of DVT. Víctor Rosas MD CT Angiography 03/21/17 0000 Signed Impressions: Service Date/Time: March 00:33 - CONCLUSION: No evidence of pulmonary embolism is identified. Mild atelectasis left lung base. Fluid or phlegm within the trachea. Milo Muhammad MD Abdomen Ultrasound 03/20/17 0000 Signed Impressions: Service Date/Time: Monday, March 20, 2017 11:38 - CONCLUSION: 1. Hepatosplenomegaly without focal lesion. 2. Probable sludge within the lumen of the gallbladder. No intrahepatic duct. Cheo Martínez MD Shoulder X-Ray 03/02/17 1404 Signed Impressions: Service Date/Time: Thursday, March 02, 2017 15:18 - CONCLUSION: No evidence of recent bony injury. Deformity of the lateral left clavicle suggests old healed trauma. Cheo Martínez MD Maxillofacial CT 03/02/17 1342 Signed Impressions: Service Date/Time: Thursday, March 02, 2017 14:52 - CONCLUSION: Negative CT of the facial bones. Cheo Martínez MD Chest CT 03/02/17 1342 Signed Impressions: Service Date/Time: Thursday, March 02, 2017 15:04 - CONCLUSION: 1. Abnormal appearance of the lateral left clavicle suggesting a combination of acute and chronic bony injury. Fracture lucencies without bridging callus is seen the region of the coracoid process. 2. The lungs are clear. No evidence of pneumothorax. 3. Moderate size hiatus hernia. Cheo Martínez MD Cervical Spine CT 03/02/17 1342 Signed Impressions: Service Date/Time: Thursday, March 02, 2017 14:52 - CONCLUSION: Negative CT cervical spine. Cheo Martínez MD Objective Remarks GENERAL: 61-year-old chronically ill appearing male, critically ill. HEENT: Healing abrasion left side scalp. TIMOTHY. Scleral icterus. Poor dentition. NECK: Trachea Midline, Trach without bleed RESP: Coarse breath sounds bilaterally. Occasional and extremities. CARDIOVASCULAR: Tachycardia, RR. S1, S2. No S4. ABDOMEN: Slightly distended but soft, bowel sounds present, tolerating tube feeds. G-tube is clear dry and intact : Johns in place with conrad urine output. mild/moderate scrotal edema. MUSCULOSKELETAL: No obvious deformity. 1+ to 2+ edema all extremities NEUROLOGICAL: Eyes are open spontaneously. Following commands on right upper extremity by squeezing hands weakly. Wiggles toes very weakly A/P Assessment and Plan Neuro/Psych: Osmotic demyelination syndrome Acute toxic metabolic encephalopathy secondary to hypercarbic respiratory failure Alcohol dependence Seizures (History of EtOH induced seizure withdrawal) Chronic benzodiazepine use Bilateral thalamic CVA Off all sedation. oxycodone 5 mg every 4 hours as needed for pain. Ativan 0.5 mg PRN for sz MRI 03/21 - findings consistent with Osmotic demyelination syndrome. ODS most likely from rapid correction of Na, with underlying alcoholism. ( Patient was profoundly hypotensive in shock requiring multiple pressors at that time) MRI brain 03/28 revealed subacute bilateral thalamic lacunar infarcts, ODS. CT head 03/05 revealed no acute intracranial findings Continue thiamine 100 mg daily Seen by neurology/Dr. Mazariegos. EEG previously with persistent. continue Keppra 1000mg BID Respiratory: Acute hypoxemic hypercapnic respiratory failure PRVC 18/550/1.2/35. Continue with vent support keep sat >92% Spontaneous breathing trials daily. Currently a PSV trial 12/5 at 40% 4 hours Ventilator bundle, s/p trach 5/16 Bronchodilator therapy every 6 hours and as needed SBT daily as pablo. Pulm toilet, trach care. Cardiovascular: Chronic Systolic heart failure Echocardiogram 03/04 revealed EF 35-40%. Mild MR. Left atrium dilated. JANE 33 mmHg s/p hydrocortisone. Continue midodrine 10 mg 3 times Monitor HR and BP keep MAP>65mmHg Renal/FEN: Acute Kidney Injury Rhabdomyolysis- resolved ODS-see neuro Hypernatremia - resolving Monitor renal function, I/O's, electrolytes replacement per protocol. DC D5/1/2 NS 04/21 GI: EtOH cirrhosis Hyperammonemia Hiatal hernia Sigmoid diverticulosis Hypoalbuminemia Continue tube feeds via PEG tube-(Jevity 1.5 with goal rate 60ml/hr) s/p PEG tube placement 04/15 CT abdomen/pelvis 04/16: Cirrhosis of liver, splenomegaly, anasarca, ascites(mild ) On Xifaxan 550 twice a day/lactulose 30 twice a day. US Liver 04/15: Abnormal appearance of the pancreas with a nonspecific hypoechoic area involving the posterior part of the pancreas along the head and body region. Fatty infiltration throughout the liver. There is thickening of the gallbladder wall at 6 mm. Suggestive of chronic gallbladder disease. Small amount of free fluid adjacent to the liver and spleen in the upper abdomen. Right-sided pleural effusion. 03/20 Ultrasound liver-hepatosplenomegaly. Sludge in gallbladder On IV Protonix switched to Prevacid Heme: Leukocytosis Macrocytic anemia - now normocytic Monitor CBC. No indications for transfusion of blood proximally postop B12 1452, Folate 15.2. TSH 0.8. ID: Aspiration pneumonia, PSAE in sputum Escherichia coli UTI 03/11 - completed therapy Acinetobacter pneumonia Pertinent cultures 04/26 - urine -C. albicans 04/15 Sputum cx: PSAE 04/15 urine cx: Klebsiella 04/15 BC: NGTD 04/12 BC: NGTD 04/08 - blood cultures 2 - no growth 04/08 - sputum - no growth 04/05 - urine -C GLABRATA AND C. ALBICANS 03/29 - blood cultures 2 - NGTD 03/25 - sputum --Acinetobacter. 03/25 - urine - NGTD 03/25 - blood cultures 2 -no growth 03/22 - urine - no growth 03/22 - blood cultures 2 - negative 03/20 - blood cultures 2 - no growth 03/11 - urine - Escherichia coli 03/02 - blood cultures 2 - no growth Followed by Dr. Lisa/ID. Changed Zosyn to cefepime 04/17 Levaquin started 04/20/17 by ID. Complete therapy by 04/30/17 Started Diflucan 100 daily 04/26 for C. albicans funguria Off Flagyl po 03/24 Procalcitonin level: 0.40, C-diff PCR negative 04/10 Endocrine: Hyperglycemia of critical illness History of hypothyroidism SSI with Accu-Cheks every 4 hours to maintain euglycemia MSK: History of old left clavicle fracture PT/OT evaluate and treat Access Peripheral IV. Prophylaxis: GI -Prevacid DVT - SCD/heparin subcutaneous Palliative care is following code status changed to full code per daughter's request. Tamanna Sandhu, daughter/ HCP: from [facility] [phone] now confirmed transferred to [facility] in [place] facility ([phone]) Code status -full code CM working on LTAC placement Level 2 Elliott oRck MD April 29, 2017 14:24
[2017-04-30] VITALS (17 sets, daily range): BP systolic 107–119; BP diastolic 68–74; PULSE 86–101; RESP 18–23; TEMP 98.5–99.4; O2SAT 95–100
[2017-04-30] MEDS: RESP: ALBUTEROL 2.5 MG/IPRATROPIUM 0.5 MG NEB (SCH) NEB ×4 (03:17→21:17)
[2017-04-30] MEDS: MIDODRINE 5 MG TAB PO SCH ×3 (05:00→21:30)
[2017-04-30 08:56] LABS: AUTOMATED NEUTROPHIL # 7.9 TH/MM3 (1.8-7.7); BASOPHIL # 0.1 TH/MM3 (0-0.2); BASOPHIL % 0.6 % (0.0-2.0); EOSINOPHIL # 0.2 TH/MM3 (0-0.4); EOSINOPHIL % 1.5 % (0.0-4.0); HEMATOCRIT 24.1 % (39.0-51.0); HEMO FLAGS DIFF FINAL; LYMPH % 14.7 % (9.0-44.0); LYMPHOCYTE # 1.5 TH/MM3 (1.0-4.8); MEAN CELL VOLUME 99.4 FL (80.0-100.0); MEAN CORPUSCULAR HEMOGLOBIN 33.1 PG (27.0-34.0); MEAN CORPUSCULAR HGB CONC 33.3 % (32.0-36.0); MONO % 6.7 % (0.0-8.0); NEUT % 76.5 % (16.0-70.0); PLATELET COUNT 160 TH/MM3 (150-450); RED BLOOD COUNT 2.42 MIL/MM3 (4.50-5.90); RED CELL DISTRIBUTION WIDTH 15.1 % (11.6-17.2); WHITE BLOOD COUNT 10.3 TH/MM3 (4.0-11.0)
[2017-04-30] MEDS: NYSTATIN 100,000 U/GM PWD 15 GM BTL TOPICAL SCH ×2 (09:00→21:30)
[2017-04-30] MEDS: ARTIFICIAL TEARS OPTH SOLN 15 ML BTL EACH EYE SCH ×3 (09:00→17:01)
[2017-04-30] MEDS: INSULIN NovoLIN REGULAR SUPPLEMENTAL SCALE SQ SCH ×2 (09:00→21:00)
[2017-04-30] MEDS: SODIUM CHLORIDE 0.9% FLUSH 10 ML FLUSH IVF SCH (09:00)
[2017-04-30] MEDS: RIFAXIMIN 550 MG TAB PO SCH ×2 (09:07→21:29)
[2017-04-30] MEDS: LACTOBACILLUS ACIDOPHILUS TAB PO SCH ×3 (09:07→17:01)
[2017-04-30] MEDS: FLUCONAZOLE 100 MG TAB PO SCH (09:07)
[2017-04-30] MEDS: levETIRAcetam 500 MG/5 ML UDC NG SCH ×2 (09:07→21:29)
[2017-04-30] MEDS: LANSOPRAZOLE SOLUTAB 30 MG TAB NG SCH (09:07)
[2017-04-30] MEDS: LACTULOSE SYRUP 20 GM/30 ML CUP PO SCH ×2 (09:07→21:29)
[2017-04-30] MEDS: LEVOFLOXACIN 750 MG TAB PO SCH (09:08)
[2017-04-30] MEDS: THIAMINE HCL 100 MG TAB PO SCH (09:08)
[2017-04-30] MEDS: HEPARIN SODIUM - SQ 10,000 UNITS/ML VIAL SQ SCH ×2 (09:08→21:29)
[2017-04-30] MEDS: MUPIROCIN 2% OINT 1 APPLIC/GM SYR EACH NARE SCH ×2 (09:08→21:29)
[2017-04-30] MEDS: SODIUM CHLORIDE 0.9% FLUSH 10 ML FLUSH IV FLUSH SCH ×2 (09:09→21:29)
[2017-04-30] MEDS: CHLORHEXIDINE 0.12% (ORAL KIT) 15 ML CUP MT SCH ×2 (09:09→21:31)
--- NOTE | 2017-04-30 11:28 | HHI.IDPN ---
Subjective Subjective Remarks Notes reviewed Temps ok Tolerating CPAP trials Giot last dose Levaquin today Per CM, [facility] trying to get auth from patient's insurance WBC down to normal Antibiotics Levaquin - finished today fluconazole Lines PIV Past Medical History ETOHism Allergies: Coded Allergies: PEANUTS (Unverified Allergy, Severe, 03/02/17) *MDRO Multi-Drug Resistant Organism (Verified Adverse Reaction, Unknown, ) MRSA PCR screen POSITIVE - 03/02/17 MDR Acinetobacter (sputum) - 03/25/17 Objective . Vital Signs Date Time Temp Pulse Resp B/P Pulse Ox O2 Delivery O2 Flow Rate FiO2 04/30/17 10:00 91 04/30/17 08:50 100 30 04/30/17 08:00 99.3 92 19 119/74 100 04/30/17 08:00 92 04/30/17 08:00 30 04/30/17 06:00 96 04/30/17 04:07 98 30 04/30/17 04:00 98.5 101 19 119/74 04/30/17 04:00 101 04/30/17 04:00 30 04/30/17 02:00 100 04/30/17 01:06 98 30 04/30/17 00:00 98.7 99 18 110/72 95 04/30/17 00:00 30 04/30/17 00:00 99 04/29/17 22:39 99 30 04/29/17 22:00 104 04/29/17 20:45 100 30 04/29/17 20:00 100 04/29/17 20:00 98.8 100 25 111/72 04/29/17 20:00 30 04/29/17 18:26 96 04/29/17 17:00 98 20 94/58 96 04/29/17 16:17 96 30 04/29/17 16:00 100 04/29/17 16:00 30 04/29/17 16:00 98.4 94 23 96/57 96 04/29/17 15:00 95 18 102/63 97 04/29/17 14:26 106 04/29/17 14:00 96 18 104/64 99 04/29/17 13:00 98 14 109/69 96 04/29/17 12:57 96 30 04/29/17 12:45 99 22 95 04/29/17 12:00 95 04/29/17 12:00 30 04/29/17 04/29/17 04/30/17 15:00 23:00 07:00 Intake Total 694 ml 706 ml 521 ml Output Total 1250 ml 625 ml 250 ml Balance -556 ml 81 ml 271 ml IV Total 133 ml Tube Feeding 411 ml 556 ml 421 ml Other 150 ml 150 ml 100 ml Output Urine Total 1100 ml 625 ml 250 ml Stool Total 150 ml Tube Feeding Residual Discard 0 ml 0 ml # Bowel Movements 1 . Laboratory Tests Test 04/28/17 04/29/17 04/30/17 17:34 04:56 08:44 White Blood Count 13.2 TH/MM3 13.8 TH/MM3 10.3 TH/MM3 Red Blood Count 2.45 MIL/MM3 2.28 MIL/MM3 2.42 MIL/MM3 Hemoglobin 8.1 GM/DL 7.7 GM/DL 8.0 GM/DL Hematocrit 24.5 % 22.5 % 24.1 % Mean Corpuscular Volume 99.8 FL 98.3 FL 99.4 FL Mean Corpuscular Hemoglobin 33.1 PG 33.6 PG 33.1 PG Mean Corpuscular Hemoglobin 33.2 % 34.2 % 33.3 % Concent Red Cell Distribution Width 15.3 % 15.4 % 15.1 % Platelet Count 169 TH/MM3 179 TH/MM3 160 TH/MM3 Mean Platelet Volume 9.8 FL 8.9 FL 8.6 FL Neutrophils (%) (Auto) 76.5 % Lymphocytes (%) (Auto) 14.7 % Monocytes (%) (Auto) 6.7 % Eosinophils (%) (Auto) 1.5 % Basophils (%) (Auto) 0.6 % Neutrophils # (Auto) 7.9 TH/MM3 Lymphocytes # (Auto) 1.5 TH/MM3 Monocytes # (Auto) 0.7 TH/MM3 Eosinophils # (Auto) 0.2 TH/MM3 Basophils # (Auto) 0.1 TH/MM3 CBC Comment DIFF FINAL Differential Comment Laboratory Tests Test 04/28/17 04/29/17 14:31 04:56 Sodium Level 140 MEQ/L 140 MEQ/L Potassium Level 5.0 MEQ/L 3.4 MEQ/L Chloride Level 105 MEQ/L 104 MEQ/L Carbon Dioxide Level 23.6 MEQ/L 27.5 MEQ/L Anion Gap 11 MEQ/L 9 MEQ/L Blood Urea Nitrogen 12 MG/DL 11 MG/DL Creatinine 0.25 MG/DL 0.22 MG/DL Estimat Glomerular Filtration 379 ML/MIN 439 ML/MIN Rate Random Glucose 115 MG/DL 87 MG/DL Calcium Level 8.5 MG/DL 8.3 MG/DL Microbiology Date/Time Procedure Status Source Growth 04/29/17 15:30 Gram Stain - Final Resulted Sputum Endotracheal 04/29/17 15:30 Sputum Culture Resulted Sputum Endotracheal Pending Imaging Last Impressions Chest X-Ray 04/29/17 0600 Signed Impressions: Service Date/Time: Saturday, April 29, 2017 06:19 - CONCLUSION: No significant change Casper Alva MD Abdomen/Pelvis CT 04/16/17 0000 Signed Impressions: Service Date/Time: Sunday, April 16, 2017 11:26 - CONCLUSION: 1. Cirrhosis and splenomegaly. 2. Ascites 3. Anasarca 4. No pancreas mass identified Yinka Harman MD Liver Ultrasound 04/15/17 0000 Signed Impressions: Service Date/Time: Saturday, April 15, 2017 09:24 - CONCLUSION: 1. Abnormal appearance of the pancreas with a nonspecific hypoechoic area involving the posterior part of the pancreas along the head and body region. Recommend CT scan of the abdomen with oral and IV contrast further evaluation. 2. Fatty infiltration throughout the liver. 3. There is thickening of the gallbladder wall at 6 mm. This is suggestive of chronic gallbladder disease. 4. Small amount of free fluid adjacent to the liver and spleen in the upper abdomen.. 5. Right-sided pleural effusion. Víctor Rosas MD Abdomen X-Ray 04/13/17 0000 Signed Impressions: Service Date/Time: Thursday, April 13, 2017 10:36 - CONCLUSION: Dobbhoff tip in distal stomach. No evidence of obstruction. Logan Morgan MD Head CT 04/12/17 0000 Signed Impressions: Service Date/Time: Wednesday, April 12, 2017 21:30 - CONCLUSION: Pontine encephalomalacia. Left mastoiditis. Casper Alva MD Head Magnetic Resonance Angiography 03/28/17 0000 Signed Impressions: Service Date/Time: March 17:22 - CONCLUSION: Unremarkable examination. K. Bijan Castillo MD Brain MRI 03/28/17 0000 Signed Impressions: Service Date/Time: March 17:22 - CONCLUSION: 1. 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 Small subacute ischemic bilateral thalamic infarcts. 2. There has been no significant change when compared to the prior exam. Yinka Harman MD Lower Extremity Ultrasound 03/25/17 0000 Signed Impressions: Service Date/Time: Saturday, March 25, 2017 22:17 - CONCLUSION: No evidence of DVT. Víctor Rosas MD CT Angiography 03/21/17 0000 Signed Impressions: Service Date/Time: March 00:33 - CONCLUSION: No evidence of pulmonary embolism is identified. Mild atelectasis left lung base. Fluid or phlegm within the trachea. Milo Muhammad MD Abdomen Ultrasound 03/20/17 0000 Signed Impressions: Service Date/Time: Monday, March 20, 2017 11:38 - CONCLUSION: 1. Hepatosplenomegaly without focal lesion. 2. Probable sludge within the lumen of the gallbladder. No intrahepatic duct. Cheo Martínez MD Shoulder X-Ray 03/02/17 1404 Signed Impressions: Service Date/Time: Thursday, March 02, 2017 15:18 - CONCLUSION: No evidence of recent bony injury. Deformity of the lateral left clavicle suggests old healed trauma. Cheo Martínez MD Maxillofacial CT 03/02/17 1342 Signed Impressions: Service Date/Time: Thursday, March 02, 2017 14:52 - CONCLUSION: Negative CT of the facial bones. Cheo Martínez MD Chest CT 03/02/17 1342 Signed Impressions: Service Date/Time: Thursday, March 02, 2017 15:04 - CONCLUSION: 1. Abnormal appearance of the lateral left clavicle suggesting a combination of acute and chronic bony injury. Fracture lucencies without bridging callus is seen the region of the coracoid process. 2. The lungs are clear. No evidence of pneumothorax. 3. Moderate size hiatus hernia. Cheo Martínez MD Cervical Spine CT 03/02/17 1342 Signed Impressions: Service Date/Time: Thursday, March 02, 2017 14:52 - CONCLUSION: Negative CT cervical spine. Cheo Martínez MD Physical Exam GENERAL: Awakens easily, focusing, following some commands, on the vent, NAD SKIN: Warm and dry. HEENT: Pupils equal round and reactive. Poor dentition. A lot of oral secretions NECK: Supple, nontender, no meningeal signs. Previous line site ok. Trach site ok, has moderate green secretions around it CARDIOVASCULAR: Regular rate and rhythm without murmurs, gallops, or rubs. RESPIRATORY: Scattered rhonchi GASTROINTESTINAL: Abdomen mildly distended, bowel sounds are present and normoactive, not tender. PEG site ok MUSCULOSKELETAL: Lower extremities without clubbing, cyanosis. + 2-3 edema. NEUROLOGICAL: Awake and focusing; trying to communicate : Johns cath in place, urine looks clear Scrotum edematous LINE: PIV no evidence of infection Assessment & Plan Remarks IMPRESSION Sepsis syndrome, due to PNA, improving - on vent - has MDR Acinetobacter, S/P RX MDR Acinetobacter PNA - S/P Rx Recurrent fevers, etiology? - intermittent - has UTI - CXR stable infiltrates; atelectasis - ?drug fever (anticonvulsants) Kleb UTI. S/P Rx New VAP, has PSAE. S/P Rx Septic shock, BP better, off pressors Known ETOH abuse Encephalopathy - sepsis, ETOH, CPM Respiratory failure - S/P trach Diarrhea, C diff negative, volume decreased Seizures, controlled - ?due to CPM - per records had ETOH withdrawal SZ Candiduria RECOMMENDATION Monitor temps Monitor progress Give 7 days Diflucan Weaning as tolerated per CCM Being evaluated for LTAC Umm Lisa MD April 30, 2017 11:28
--- NOTE | 2017-04-30 15:57 | HHI.CCPN ---
Subjective Remarks/Hospital Course This is a 61-year-old male with a past history of alcohol abuse and a prior admission in 2015 for severe life-threatening hyponatremia at that time with a serum sodium of 98. He presents today with what he states is a 13 day history of worsening fatigue and weakness. He is very altered and is very difficult to understand the patient. What I can understand from him, is that at some point during these 13 days he has fallen and hit his face. Otherwise he states he lays on the couch, and has not gotten not much. He states he drinks 1 beer in the morning, and 1 beer in the afternoon. He does endorse taking some Xanax to help him sleep. He denies other drug use. He denies chest pain, shortness of breath, fever, chills, nausea, vomiting, abdominal pain. It is very difficult to get him to answer anymore questions about his medical history. His speech is very slurred and he is trying to talk about how he misses his daughter. Emergency department he was found to have a serum sodium of 99, a bilirubin of 8.9, lactate of 9.8, ammonia of 60, CK of 7000, elevated troponin of 4.9 with a normal MB ratio, creatinine 1.5, serum bicarbonate of 13. His white count is 12 , platelets 112. INR 1.9. His MELD calculates at 26. 4/2: Sodium level rapidly corrected overnight, likely secondary to appropriate correction of severe life-threatening dehydration. NS fluids changed to 1/2NS and correction slowed down significantly. sodium up to 130 this AM. CK downtrending. however, patient remains severely hypotensive requiring Levophed to maintain a map > 65 mmHg. This AM, serum K 1.6 (confirmed). started replacement with 200meq KCl and recheck K. 03/04: persists in vasoplegic distributive shock. afebrile. no evidence of infection. wbc downtrending. persists with severe life-threatening electrolyte derangements. passed swallow eval for nectar thick liquids. sodium stable at 131. ck downtrending. 03/05: persists in distributive shock. echo yesterday with EF 30%, globally decreased function. milrinone added yesterday with improvement in vasopressor requirement. still with multiple electrolyte abnormalities despite very aggressive replacement. very poor appetite. sodium stable at 131, which appears to be around baseline for him, looking back at prior records. also became agitated and delirious yesterday, likely secondary to etoh withdraw. started on Ativan and Librium. 03/06: electrolyte derangements persist. placed on continuous NaPhos infusion x 24h due to severe life-threatening hypophosphatemia. serial K, phos checks. weaning off levophed, milrinone persists. still poor appetite. sodium jumped from 132 to 139, but no significant mental status change, and we did not increase sodium load. 03/07: still requiring high electrolyte replacement. milrinone weaned to 0.375 mcg /kg/min overnight. still doing well with that. delirium persists. 03/08 Remains on milrinone. Electrolyte improving. Remains very lethargic, intermittently follows commands 03/09: Continues to be lethargic but wakes up follows some commands. Remains on milrinone will DC today. T max 100.1, urine output adequate sodium is 143 03/10: More awake alert, ate 50% of break fast. Will DC Dobhoff. Discontinue arterial and central lines. Delirium also improved, remains weak 03/11: doing much better this morning. no complaints. still with poor appetite. electrolytes improved. 03/20: We consulted for respiratory failure. Patient was last seen in room 1415 CMP receiving oral cares and became acutely hypoxic saturations 82% with coarse breath sounds. Halicat called. Patient was placed on a Venturi mask 50 % with desaturations to the mid 90s. He received Solu-Medrol 20 mg IV 1, Lasix 40 mg IV 1 and was transferred IM [facility] 521. Hemodynamically stable. Poor mentation 03/25: Reconsulted due to respiratory failure. Patient with gurgling/ transmitted upper airway sounds. Respiration the 50s. Decision made to orotracheally intubate. Noted to have been febrile with increased O2 course over the past 48 hours. 03/26: Afebrile. Requiring Nimbex drip for ventilator synchrony. Decreased urine output noted. Hemoglobin decreased likely dilutional. Tolerating tube feeding. Electrolytes been replaced. 03/27: Tmax 100.9. Currently 97.2. +6 L past 24 hours. Hemoglobin 8 transfuse overnight. Potassium 3. We'll discontinue Nimbex drip for vent synchrony today. 03/28: Afebrile. Negative fluid balance past 24 hours. Hemoglobin currently 9. Potassium 3.0. Currently on sedation vacation positive gag and otherwise unresponsive. 03/29: Tmax 103. Currently afebrile. Not tolerating tube feeds. Remains on Kiran-Synephrine. Did not tolerate sedation vacation back on Versed at 5 mg an hour fentanyl drip at 100 mcg an hour. One bowel movement. 03/30 Tube feeds remain on hold. On neosynephrine 40 mcg/min, RN states she has been weaning. Having BMs. On Versed 8 mg/hr and fentanyl 100 mcg/hr. 03/31 Off versed. Remains on fentanyl 100 mcg/hr. Having hiccups. Still on neosynephrine 40 mcg/min. Tolerating trickle feeds. Had 2 bowel movements 04/01: no meaningful change. still requires fentanyl for sedation. still on low- dose vasopressors. 04/02: no changes. still on levo @ 7 mcg/min. unable to wean off fentanyl due to tachycardia and tachypnea. 04/03: Off all sedation. On low-dose norepinephrine. Essentially unresponsive on the ventilator. Plan for likely withdrawal of care tomorrow 04/04: Off all sedation. Off all vasopressors. According to overnight RN was following commands. Will open eyes but not following commands this AM. 04/05 No events overnight. Afebrile On no sedation. 04/06: Resting comfortably in bed. Eyes are open. Moving head back and forth continuously. Weakly following commands with his upper and lower extremities. 04/07: Low-grade temperatures overnight. 99.8. Eyes are open. Moving back and forth. Positive BM. Continues to be following commands. 04/08 Patient remains intubated on no sedation awake and follows commands. Tmax 100.8 04/09 Patient remains intubated, tolerated CPAP all day and had good responses in UO with Bumex yesterday. Afebrile. 04/10: Tmax 99.1. Went back on set rate ventilation yesterday. Will attempt PSV trials throughout the day with goal to attempt extubation tomorrow. 04/11: Tmax 100.2. Currently 100.1. Did not tolerate weaning parameters with NIF -9 and unacceptable RSBI. Patient is arousable and follows commands eyes open 04/12: Omayra care reports tonic-clonic seizure activity this AM. Heart rate in the 140s during episode with violent shaking. On examination, patient's eyes are open and at baseline except currently not following commands. 04/13: had 2 seizures this morning, both resolved without medication interventions. Dr. Fabrizio navas'd at bedside earlier and ordered Cerebyx load. no other changes. plan for trach/peg next week 04/14: still having breakthrough seizures on repeat EEG despite Cerebyx and Keppra. plan for PEG tomorrow. 04/15 No events overnight. Remains intubated. On no sedation. For PEG tube placement today. T:101.2 last night. 04/16 Patient remains intubated. For trach this afternoon. s/p PEG tube placement yesterday. Spiked fever with T:102.5 last night. 04/17 Patient s/p trach yesterday. T: 100.3 at midnight. 04/18 Continues to have low-grade fever. No change in mental status. Sputum Pseudomonas pansensitive. No seizures reported in the last 24 hours 04/19: No fever reported. Slightly more awake and was commands on right upper extremity by squeezing hands very weakly. On CPAP 15/04. Slightly tachypneic 04/20: WBC count slightly elevated today, tachypnea on CPAP. Continues to follow commands weakly on right hand. Intermittently about to wiggle toes. Slight increase in white count to 13,000. Tmax 100.9 ID following 04/21: Tolerated only 1 hour CPAP yesterday. Unable to reduce pressure support. Tmax 99.9 04/22: Remains on mechanical ventilation via tracheostomy. Tolerated C Pap trial for 1 hour yesterday. 04/23: Remains on mechanical ventilation via tracheostomy. Daily C Pap trials ongoing. Tolerating tube feeds. 04/24: Afebrile. Copious edema//swelling extremities. Decreased urine output noted. Remains on mechanical ventilation via trach acid. Daily C Pap trials ongoing. Positive BM. 04/25: Tmax 99.5. With copious edema. Will give 1 additional dose of Bumex today after albumin. Remains on ventilator via tracheostomy. Ongoing CPAP trials. 04/26: Tmax 100. Diuresed yesterday. Remains on ventilator via tracheostomy. Positive BM. 04/27: Diuresed well yesterday. Tolerating CPAP trials 4 hours today. Positive BM. Awake and interactive. Subjective: 04/28: Decreased urine output noted today. Low-grade temperature 99.3. Tolerating CPAP trials for the past 24 hours currently at 18/5 at 40%. 04/29: Awake and alert. Tolerating C Pap trials. 04/30: Drowsy, easily arousable. Tolerating C Pap trials. Objective Vital Signs Date Time Temp Pulse Resp B/P Pulse Ox O2 Delivery O2 Flow Rate FiO2 04/30/17 14:00 86 04/30/17 12:00 100 30 04/30/17 12:00 99.4 23 107/68 04/28/17 08:56 Ventilator Intake and Output 04/29/17 04/29/17 04/30/17 08:00 16:00 00:00 Intake Total 460 ml 694 ml 706 ml Output Total 550.0 ml 1250.0 ml 625 ml Balance -90.0 ml -556.0 ml 81 ml Result Diagram: 04/30/17 0844 04/29/17 0456 Imaging Last Impressions Chest X-Ray 04/28/17 0600 Signed Impressions: Service Date/Time: Friday, April 28, 2017 04:27 - CONCLUSION: 1. Bilateral basilar and perihilar air space disease slightly improved on the right. No significant effusion. Tracheostomy in satisfactory position Miguel Looney MD Abdomen/Pelvis CT 04/16/17 0000 Signed Impressions: Service Date/Time: Sunday, April 16, 2017 11:26 - CONCLUSION: 1. Cirrhosis and splenomegaly. 2. Ascites 3. Anasarca 4. No pancreas mass identified Yinka Harman MD Liver Ultrasound 04/15/17 0000 Signed Impressions: Service Date/Time: Saturday, April 15, 2017 09:24 - CONCLUSION: 1. Abnormal appearance of the pancreas with a nonspecific hypoechoic area involving the posterior part of the pancreas along the head and body region. Recommend CT scan of the abdomen with oral and IV contrast further evaluation. 2. Fatty infiltration throughout the liver. 3. There is thickening of the gallbladder wall at 6 mm. This is suggestive of chronic gallbladder disease. 4. Small amount of free fluid adjacent to the liver and spleen in the upper abdomen.. 5. Right-sided pleural effusion. Víctor Rosas MD Abdomen X-Ray 04/13/17 0000 Signed Impressions: Service Date/Time: Thursday, April 13, 2017 10:36 - CONCLUSION: Dobbhoff tip in distal stomach. No evidence of obstruction. Logan Morgan MD Head CT 04/12/17 0000 Signed Impressions: Service Date/Time: Wednesday, April 12, 2017 21:30 - CONCLUSION: Pontine encephalomalacia. Left mastoiditis. Casper Alva MD Head Magnetic Resonance Angiography 03/28/17 0000 Signed Impressions: Service Date/Time: March 17:22 - CONCLUSION: Unremarkable examination. KShiv Castillo MD Brain MRI 03/28/17 0000 Signed Impressions: Service Date/Time: March 17:22 - CONCLUSION: 1. 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 Small subacute ischemic bilateral thalamic infarcts. 2. There has been no significant change when compared to the prior exam. Yinka Harman MD Lower Extremity Ultrasound 03/25/17 0000 Signed Impressions: Service Date/Time: Saturday, March 25, 2017 22:17 - CONCLUSION: No evidence of DVT. Víctor Rosas MD CT Angiography 03/21/17 0000 Signed Impressions: Service Date/Time: March 00:33 - CONCLUSION: No evidence of pulmonary embolism is identified. Mild atelectasis left lung base. Fluid or phlegm within the trachea. Milo Muhammad MD Abdomen Ultrasound 03/20/17 0000 Signed Impressions: Service Date/Time: Monday, March 20, 2017 11:38 - CONCLUSION: 1. Hepatosplenomegaly without focal lesion. 2. Probable sludge within the lumen of the gallbladder. No intrahepatic duct. Cheo Martínez MD Shoulder X-Ray 03/02/17 1404 Signed Impressions: Service Date/Time: Thursday, March 02, 2017 15:18 - CONCLUSION: No evidence of recent bony injury. Deformity of the lateral left clavicle suggests old healed trauma. Cheo Martínez MD Maxillofacial CT 03/02/17 1342 Signed Impressions: Service Date/Time: Thursday, March 02, 2017 14:52 - CONCLUSION: Negative CT of the facial bones. Cheo Martínez MD Chest CT 03/02/17 1342 Signed Impressions: Service Date/Time: Thursday, March 02, 2017 15:04 - CONCLUSION: 1. Abnormal appearance of the lateral left clavicle suggesting a combination of acute and chronic bony injury. Fracture lucencies without bridging callus is seen the region of the coracoid process. 2. The lungs are clear. No evidence of pneumothorax. 3. Moderate size hiatus hernia. Cheo Martínez MD Cervical Spine CT 03/02/17 1342 Signed Impressions: Service Date/Time: Thursday, March 02, 2017 14:52 - CONCLUSION: Negative CT cervical spine. Cheo Martínez MD Objective Remarks GENERAL: 61-year-old chronically ill appearing male, critically ill. HEENT: Healing abrasion left side scalp. TIMOTHY. Scleral icterus. Poor dentition. NECK: Trachea Midline, Trach without bleed RESP: Coarse breath sounds bilaterally. Occasional and extremities. CARDIOVASCULAR: Tachycardia, RR. S1, S2. No S4. ABDOMEN: Slightly distended but soft, bowel sounds present, tolerating tube feeds. G-tube is clear dry and intact : Johns in place with conrad urine output. mild/moderate scrotal edema. MUSCULOSKELETAL: No obvious deformity. 1+ to 2+ edema all extremities NEUROLOGICAL: Eyes are open spontaneously. Following commands on right upper extremity by squeezing hands weakly. Wiggles toes very weakly A/P Assessment and Plan Neuro/Psych: Osmotic demyelination syndrome Acute toxic metabolic encephalopathy secondary to hypercarbic respiratory failure Alcohol dependence Seizures (History of EtOH induced seizure withdrawal) Chronic benzodiazepine use Bilateral thalamic CVA Off all sedation. oxycodone 5 mg every 4 hours as needed for pain. Ativan 0.5 mg PRN for sz MRI 03/21 - findings consistent with Osmotic demyelination syndrome. ODS most likely from rapid correction of Na, with underlying alcoholism. ( Patient was profoundly hypotensive in shock requiring multiple pressors at that time) MRI brain 03/28 revealed subacute bilateral thalamic lacunar infarcts, ODS. CT head 03/05 revealed no acute intracranial findings Continue thiamine 100 mg daily Seen by neurology/Dr. Mazariegos. EEG previously with persistent. continue Keppra 1000mg BID Respiratory: Acute hypoxemic hypercapnic respiratory failure PRVC 18/550/1.2//35. Continue with vent support keep sat >92% Spontaneous breathing trials daily. Currently a PSV trial 11/05 at 40% 4 hours Ventilator bundle, s/p trach 04/16 Bronchodilator therapy every 6 hours and as needed SBT daily as pablo. Pulm toilet, trach care. Cardiovascular: Chronic Systolic heart failure Echocardiogram 03/04 revealed EF 35-40%. Mild MR. Left atrium dilated. JANE 33 mmHg s/p hydrocortisone. Continue midodrine 10 mg 3 times Monitor HR and BP keep MAP>65mmHg Renal/FEN: Acute Kidney Injury Rhabdomyolysis- resolved ODS-see neuro Hypernatremia - resolving Monitor renal function, I/O's, electrolytes replacement per protocol. DC D5/2 NS 04/21 GI: EtOH cirrhosis Hyperammonemia Hiatal hernia Sigmoid diverticulosis Hypoalbuminemia Continue tube feeds via PEG tube-(Jevity 1.5 with goal rate 60ml/hr) s/p PEG tube placement 04/15 CT abdomen/pelvis 04/16: Cirrhosis of liver, splenomegaly, anasarca, ascites(mild ) On Xifaxan 550 twice a day/lactulose 30 twice a day. US Liver 04/15: Abnormal appearance of the pancreas with a nonspecific hypoechoic area involving the posterior part of the pancreas along the head and body region. Fatty infiltration throughout the liver. There is thickening of the gallbladder wall at 6 mm. Suggestive of chronic gallbladder disease. Small amount of free fluid adjacent to the liver and spleen in the upper abdomen. Right-sided pleural effusion. 03/20 Ultrasound liver-hepatosplenomegaly. Sludge in gallbladder On IV Protonix switched to Prevacid Heme: Leukocytosis Macrocytic anemia - now normocytic Monitor CBC. No indications for transfusion of blood proximally postop B12 1452, Folate 15.2. TSH 0.8. ID: Aspiration pneumonia, PSAE in sputum Escherichia coli UTI 03/11 - completed therapy Acinetobacter pneumonia Pertinent cultures 04/26 - urine -C. albicans 04/15 Sputum cx: PSAE 04/15 urine cx: Klebsiella 04/15 BC: NGTD 04/12 BC: NGTD 04/08 - blood cultures 2 - no growth 04/08 - sputum - no growth 04/05 - urine -C GLABRATA AND C. ALBICANS 03/29 - blood cultures 2 - NGTD 03/25 - sputum --Acinetobacter. 03/25 - urine - NGTD 03/25 - blood cultures 2 -no growth 03/22 - urine - no growth 03/22 - blood cultures 2 - negative 03/20 - blood cultures 2 - no growth 03/11 - urine - Escherichia coli 03/02 - blood cultures 2 - no growth Followed by Dr. Lisa/ID. Changed Zosyn to cefepime 04/17 Levaquin started 04/20/17 by ID. Complete therapy by 04/30/17 Started Diflucan 100 daily 04/26 for C. albicans funguria Off Flagyl po 03/24 Procalcitonin level: 0.40, C-diff PCR negative 04/10 Endocrine: Hyperglycemia of critical illness History of hypothyroidism SSI with Accu-Cheks every 4 hours to maintain euglycemia MSK: History of old left clavicle fracture PT/OT evaluate and treat Access Peripheral IV. Prophylaxis: GI -Prevacid DVT - SCD/heparin subcutaneous Palliative care is following code status changed to full code per daughter's request. Tamanna Sandhu, daughter/ HCP: from [facility] [phone] now confirmed transferred to [facility] in [place] facility ) Code status -full code CM working on LTAC placement Level 2 Elliott Rock MD April 30, 2017 15:56
[2017-05-01] VITALS (18 sets, daily range): BP systolic 112–130; BP diastolic 71–79; PULSE 83–92; RESP 18–25; TEMP 98.5–99.6; O2SAT 96–100
[2017-05-01] MEDS: RESP: ALBUTEROL 2.5 MG/IPRATROPIUM 0.5 MG NEB (SCH) NEB ×4 (04:28→20:17)
[2017-05-01] MEDS: MIDODRINE 5 MG TAB PO SCH ×3 (06:00→23:10)
[2017-05-01] MEDS: SODIUM CHLORIDE 0.9% FLUSH 10 ML FLUSH IVF SCH (09:00)
[2017-05-01] MEDS: INSULIN NovoLIN REGULAR SUPPLEMENTAL SCALE SQ SCH ×2 (09:00→21:00)
[2017-05-01] MEDS: CHLORHEXIDINE 0.12% (ORAL KIT) 15 ML CUP MT SCH ×2 (09:06→20:00)
[2017-05-01] MEDS: THIAMINE HCL 100 MG TAB PO SCH (09:07)
[2017-05-01] MEDS: SODIUM CHLORIDE 0.9% FLUSH 10 ML FLUSH IV FLUSH SCH ×2 (09:07→21:00)
[2017-05-01] MEDS: ARTIFICIAL TEARS OPTH SOLN 15 ML BTL EACH EYE SCH ×3 (09:07→17:42)
[2017-05-01] MEDS: NYSTATIN 100,000 U/GM PWD 15 GM BTL TOPICAL SCH ×2 (09:07→21:00)
[2017-05-01] MEDS: LACTOBACILLUS ACIDOPHILUS TAB PO SCH ×3 (09:08→17:42)
[2017-05-01] MEDS: HEPARIN SODIUM - SQ 10,000 UNITS/ML VIAL SQ SCH ×2 (09:08→23:10)
[2017-05-01] MEDS: RIFAXIMIN 550 MG TAB PO SCH ×2 (09:08→23:10)
[2017-05-01] MEDS: MUPIROCIN 2% OINT 1 APPLIC/GM SYR EACH NARE SCH ×2 (09:08→23:11)
[2017-05-01] MEDS: levETIRAcetam 500 MG/5 ML UDC NG SCH ×2 (09:08→23:10)
[2017-05-01] MEDS: LANSOPRAZOLE SOLUTAB 30 MG TAB NG SCH (09:08)
[2017-05-01] MEDS: FLUCONAZOLE 100 MG TAB PO SCH (09:08)
[2017-05-01] MEDS: LACTULOSE SYRUP 20 GM/30 ML CUP PO SCH ×2 (09:12→23:09)
[2017-05-01] MEDS: POTASSIUM CHLORIDE 25 MEQ EFFERVESCENT TAB PO PRN (11:44)
--- NOTE | 2017-05-01 13:47 | HHI.IDPN ---
Subjective Subjective Remarks Notes reviewed Temps ok Tolerating CPAP trials Got last dose Levaquin 04/30 Tolerating CPAP trials Sputum now with Acinetobacter again, and second GNR Secretions look whitish on tubing Tolerating TF Not SOB He is awake and responding Per CM, [facility] trying to get auth from patient's insurance WBC down to normal CXR stable, no new infiltrates Antibiotics Levaquin - finished today fluconazole Lines PIV Past Medical History ETOHism Allergies: Coded Allergies: PEANUTS (Unverified Allergy, Severe, 03/02/17) *MDRO Multi-Drug Resistant Organism (Verified Adverse Reaction, Unknown, ) MRSA PCR screen POSITIVE - 03/02/17 MDR Acinetobacter (sputum) - 03/25/17 Objective . Vital Signs Date Time Temp Pulse Resp B/P Pulse Ox O2 Delivery O2 Flow Rate FiO2 05/01/17 11:40 100 30 05/01/17 10:00 87 05/01/17 08:00 83 05/01/17 07:57 30 05/01/17 07:54 100 30 05/01/17 04:28 97 30 05/01/17 04:00 98.8 87 18 115/71 97 05/01/17 04:00 30 05/01/17 01:14 30 05/01/17 01:10 96 30 05/01/17 00:00 30 05/01/17 00:00 99.0 84 20 119/72 100 05/01/17 00:00 84 04/30/17 22:00 93 04/30/17 21:18 99 30 04/30/17 20:00 30 04/30/17 20:00 87 04/30/17 20:00 98.9 87 22 117/71 99 04/30/17 18:00 88 04/30/17 17:17 98 30 04/30/17 16:00 98.5 90 18 109/69 99 04/30/17 16:00 90 04/30/17 16:00 30 04/30/17 14:00 86 04/30/17 04/30/17 05/01/17 15:00 23:00 07:00 Intake Total 547 ml 520 ml 600 ml Output Total 650 ml 350 ml 550 ml Balance -103 ml 170 ml 50 ml IV Total 5 ml Tube Feeding 482 ml 400 ml 500 ml Other 60 ml 120 ml 100 ml Output Urine Total 300 ml 350 ml 350 ml Stool Total 350 ml 200 ml . Laboratory Tests Test 04/30/17 08:44 White Blood Count 10.3 TH/MM3 Red Blood Count 2.42 MIL/MM3 Hemoglobin 8.0 GM/DL Hematocrit 24.1 % Mean Corpuscular Volume 99.4 FL Mean Corpuscular Hemoglobin 33.1 PG Mean Corpuscular Hemoglobin 33.3 % Concent Red Cell Distribution Width 15.1 % Platelet Count 160 TH/MM3 Mean Platelet Volume 8.6 FL Neutrophils (%) (Auto) 76.5 % Lymphocytes (%) (Auto) 14.7 % Monocytes (%) (Auto) 6.7 % Eosinophils (%) (Auto) 1.5 % Basophils (%) (Auto) 0.6 % Neutrophils # (Auto) 7.9 TH/MM3 Lymphocytes # (Auto) 1.5 TH/MM3 Monocytes # (Auto) 0.7 TH/MM3 Eosinophils # (Auto) 0.2 TH/MM3 Basophils # (Auto) 0.1 TH/MM3 CBC Comment DIFF FINAL Differential Comment Microbiology Date/Time Procedure Status Source Growth 04/29/17 15:30 Gram Stain - Final Resulted Sputum Endotracheal 04/29/17 15:30 Sputum Culture - Preliminary Resulted Acinetobacter Baumannii/Haemol Gram Negative [facility] Last Impressions Chest X-Ray 04/29/17 0600 Signed Impressions: Service Date/Time: Saturday, April 29, 2017 06:19 - CONCLUSION: No significant change Casper Alva MD Abdomen/Pelvis CT 04/16/17 0000 Signed Impressions: Service Date/Time: Sunday, April 16, 2017 11:26 - CONCLUSION: 1. Cirrhosis and splenomegaly. 2. Ascites 3. Anasarca 4. No pancreas mass identified Yinka Harman MD Liver Ultrasound 04/15/17 0000 Signed Impressions: Service Date/Time: Saturday, April 15, 2017 09:24 - CONCLUSION: 1. Abnormal appearance of the pancreas with a nonspecific hypoechoic area involving the posterior part of the pancreas along the head and body region. Recommend CT scan of the abdomen with oral and IV contrast further evaluation. 2. Fatty infiltration throughout the liver. 3. There is thickening of the gallbladder wall at 6 mm. This is suggestive of chronic gallbladder disease. 4. Small amount of free fluid adjacent to the liver and spleen in the upper abdomen.. 5. Right-sided pleural effusion. Víctor J. Siragusa, MD Abdomen X-Ray 04/13/17 0000 Signed Impressions: Service Date/Time: Thursday, April 13, 2017 10:36 - CONCLUSION: Dobbhoff tip in distal stomach. No evidence of obstruction. Logan Morgan MD Head CT 04/12/17 0000 Signed Impressions: Service Date/Time: Wednesday, April 12, 2017 21:30 - CONCLUSION: Pontine encephalomalacia. Left mastoiditis. Casper Alva MD Head Magnetic Resonance Angiography 03/28/17 0000 Signed Impressions: Service Date/Time: March 17:22 - CONCLUSION: Unremarkable examination. Bety Castillo MD Brain MRI 03/28/17 0000 Signed Impressions: Service Date/Time: March 17:22 - CONCLUSION: 1. 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 Small subacute ischemic bilateral thalamic infarcts. 2. There has been no significant change when compared to the prior exam. Yinka Harman MD Lower Extremity Ultrasound 03/25/17 0000 Signed Impressions: Service Date/Time: Saturday, March 25, 2017 22:17 - CONCLUSION: No evidence of DVT. Víctor Rosas MD CT Angiography 03/21/17 0000 Signed Impressions: Service Date/Time: March 00:33 - CONCLUSION: No evidence of pulmonary embolism is identified. Mild atelectasis left lung base. Fluid or phlegm within the trachea. Milo Muhammad MD Abdomen Ultrasound 03/20/17 0000 Signed Impressions: Service Date/Time: Monday, March 20, 2017 11:38 - CONCLUSION: 1. Hepatosplenomegaly without focal lesion. 2. Probable sludge within the lumen of the gallbladder. No intrahepatic duct. Cheo Martínez MD Shoulder X-Ray 03/02/17 1404 Signed Impressions: Service Date/Time: Thursday, March 02, 2017 15:18 - CONCLUSION: No evidence of recent bony injury. Deformity of the lateral left clavicle suggests old healed trauma. Cheo Martínez MD Maxillofacial CT 03/02/17 1342 Signed Impressions: Service Date/Time: Thursday, March 02, 2017 14:52 - CONCLUSION: Negative CT of the facial bones. Cheo Martínez MD Chest CT 03/02/17 1342 Signed Impressions: Service Date/Time: Thursday, March 02, 2017 15:04 - CONCLUSION: 1. Abnormal appearance of the lateral left clavicle suggesting a combination of acute and chronic bony injury. Fracture lucencies without bridging callus is seen the region of the coracoid process. 2. The lungs are clear. No evidence of pneumothorax. 3. Moderate size hiatus hernia. Cheo Martínez MD Cervical Spine CT 03/02/17 1342 Signed Impressions: Service Date/Time: Thursday, March 02, 2017 14:52 - CONCLUSION: Negative CT cervical spine. Cheo Martínez MD Physical Exam GENERAL: Awake, and interacting, NAD on CPAP SKIN: Warm and dry. HEENT: Pupils equal round and reactive. Poor dentition. A lot of oral secretions NECK: Supple, nontender, no meningeal signs. Previous line site ok. Trach site ok CARDIOVASCULAR: Regular rate and rhythm without murmurs, gallops, or rubs. RESPIRATORY: Scattered rhonchi GASTROINTESTINAL: Abdomen mildly distended, bowel sounds are present and normoactive, not tender. PEG site ok MUSCULOSKELETAL: Lower extremities without clubbing, cyanosis. Pedal edema better NEUROLOGICAL: Awake and focusing; trying to communicate : Johns cath in place, urine looks clear Scrotum edematous LINE: PIV no evidence of infection Assessment & Plan Remarks IMPRESSION Sepsis syndrome, due to PNA, improving - on vent - has MDR Acinetobacter, S/P RX MDR Acinetobacter PNA - S/P Rx Recurrent fevers, etiology? Resolved - intermittent - has UTI - CXR stable infiltrates; atelectasis - ?drug fever (anticonvulsants) Kleb UTI. S/P Rx New VAP, has PSAE. S/P Rx Septic shock, BP better, off pressors - resolved Known ETOH abuse Encephalopathy - sepsis, ETOH, CPM Respiratory failure - S/P trach - doing CPAP trials Diarrhea, C diff negative, volume decreased Seizures, controlled - ?due to CPM - per records had ETOH withdrawal SZ Candiduria Recurrent GNR in sputum, likely tracheobronchitis RECOMMENDATION Monitor temps Monitor progress Give 7 days Diflucan for UTI Follow C/S Colistin nebs Weaning as tolerated per CCM Being evaluated for LTAC D/W Umm Lui MD May 01, 2017 13:47
[2017-05-01] MEDS: RESP: COLISTIN 150 MG VIAL NEB SCH ×2 (15:00→22:35)
--- NOTE | 2017-05-01 15:33 | HHI.CCPN ---
Subjective Remarks/Hospital Course This is a 61-year-old male with a past history of alcohol abuse and a prior admission in 2015 for severe life-threatening hyponatremia at that time with a serum sodium of 98. He presents today with what he states is a 13 day history of worsening fatigue and weakness. He is very altered and is very difficult to understand the patient. What I can understand from him, is that at some point during these 13 days he has fallen and hit his face. Otherwise he states he lays on the couch, and has not gotten not much. He states he drinks 1 beer in the morning, and 1 beer in the afternoon. He does endorse taking some Xanax to help him sleep. He denies other drug use. He denies chest pain, shortness of breath, fever, chills, nausea, vomiting, abdominal pain. It is very difficult to get him to answer anymore questions about his medical history. His speech is very slurred and he is trying to talk about how he misses his daughter. Emergency department he was found to have a serum sodium of 99, a bilirubin of 8.9, lactate of 9.8, ammonia of 60, CK of 7000, elevated troponin of 4.9 with a normal MB ratio, creatinine 1.5, serum bicarbonate of 13. His white count is 12 , platelets 112. INR 1.9. His MELD calculates at 26. 4/2: Sodium level rapidly corrected overnight, likely secondary to appropriate correction of severe life-threatening dehydration. NS fluids changed to 1/2NS and correction slowed down significantly. sodium up to 130 this AM. CK downtrending. however, patient remains severely hypotensive requiring Levophed to maintain a map > 65 mmHg. This AM, serum K 1.6 (confirmed). started replacement with 200meq KCl and recheck K. 03/04: persists in vasoplegic distributive shock. afebrile. no evidence of infection. wbc downtrending. persists with severe life-threatening electrolyte derangements. passed swallow eval for nectar thick liquids. sodium stable at 131. ck downtrending. 03/05: persists in distributive shock. echo yesterday with EF 30%, globally decreased function. milrinone added yesterday with improvement in vasopressor requirement. still with multiple electrolyte abnormalities despite very aggressive replacement. very poor appetite. sodium stable at 131, which appears to be around baseline for him, looking back at prior records. also became agitated and delirious yesterday, likely secondary to etoh withdraw. started on Ativan and Librium. 03/06: electrolyte derangements persist. placed on continuous NaPhos infusion x 24h due to severe life-threatening hypophosphatemia. serial K, phos checks. weaning off levophed, milrinone persists. still poor appetite. sodium jumped from 132 to 139, but no significant mental status change, and we did not increase sodium load. 03/07: still requiring high electrolyte replacement. milrinone weaned to 0.375 mcg /kg/min overnight. still doing well with that. delirium persists. 03/08 Remains on milrinone. Electrolyte improving. Remains very lethargic, intermittently follows commands 03/09: Continues to be lethargic but wakes up follows some commands. Remains on milrinone will DC today. T max 100.1, urine output adequate sodium is 143 03/10: More awake alert, ate 50% of break fast. Will DC Dobhoff. Discontinue arterial and central lines. Delirium also improved, remains weak 03/11: doing much better this morning. no complaints. still with poor appetite. electrolytes improved. 03/20: We consulted for respiratory failure. Patient was last seen in room 1415 CMP receiving oral cares and became acutely hypoxic saturations 82% with coarse breath sounds. Halicat called. Patient was placed on a Venturi mask 50 % with desaturations to the mid 90s. He received Solu-Medrol 20 mg IV 1, Lasix 40 mg IV 1 and was transferred IM [facility] 521. Hemodynamically stable. Poor mentation 03/25: Reconsulted due to respiratory failure. Patient with gurgling/ transmitted upper airway sounds. Respiration the 50s. Decision made to orotracheally intubate. Noted to have been febrile with increased O2 course over the past 48 hours. 03/26: Afebrile. Requiring Nimbex drip for ventilator synchrony. Decreased urine output noted. Hemoglobin decreased likely dilutional. Tolerating tube feeding. Electrolytes been replaced. 03/27: Tmax 100.9. Currently 97.2. +6 L past 24 hours. Hemoglobin 8 transfuse overnight. Potassium 3. We'll discontinue Nimbex drip for vent synchrony today. 03/28: Afebrile. Negative fluid balance past 24 hours. Hemoglobin currently 9. Potassium 3.0. Currently on sedation vacation positive gag and otherwise unresponsive. 03/29: Tmax 103. Currently afebrile. Not tolerating tube feeds. Remains on Kiran-Synephrine. Did not tolerate sedation vacation back on Versed at 5 mg an hour fentanyl drip at 100 mcg an hour. One bowel movement. 03/30 Tube feeds remain on hold. On neosynephrine 40 mcg/min, RN states she has been weaning. Having BMs. On Versed 8 mg/hr and fentanyl 100 mcg/hr. 03/31 Off versed. Remains on fentanyl 100 mcg/hr. Having hiccups. Still on neosynephrine 40 mcg/min. Tolerating trickle feeds. Had 2 bowel movements 04/01: no meaningful change. still requires fentanyl for sedation. still on low- dose vasopressors. 04/02: no changes. still on levo @ 7 mcg/min. unable to wean off fentanyl due to tachycardia and tachypnea. 04/03: Off all sedation. On low-dose norepinephrine. Essentially unresponsive on the ventilator. Plan for likely withdrawal of care tomorrow 04/04: Off all sedation. Off all vasopressors. According to overnight RN was following commands. Will open eyes but not following commands this AM. 04/05 No events overnight. Afebrile On no sedation. 04/06: Resting comfortably in bed. Eyes are open. Moving head back and forth continuously. Weakly following commands with his upper and lower extremities. 04/07: Low-grade temperatures overnight. 99.8. Eyes are open. Moving back and forth. Positive BM. Continues to be following commands. 04/08 Patient remains intubated on no sedation awake and follows commands. Tmax 100.8 04/09 Patient remains intubated, tolerated CPAP all day and had good responses in UO with Bumex yesterday. Afebrile. 04/10: Tmax 99.1. Went back on set rate ventilation yesterday. Will attempt PSV trials throughout the day with goal to attempt extubation tomorrow. 04/11: Tmax 100.2. Currently 100.1. Did not tolerate weaning parameters with NIF -9 and unacceptable RSBI. Patient is arousable and follows commands eyes open 04/12: Omayra care reports tonic-clonic seizure activity this AM. Heart rate in the 140s during episode with violent shaking. On examination, patient's eyes are open and at baseline except currently not following commands. 04/13: had 2 seizures this morning, both resolved without medication interventions. Dr. Fabrizio navas'd at bedside earlier and ordered Cerebyx load. no other changes. plan for trach/peg next week 04/14: still having breakthrough seizures on repeat EEG despite Cerebyx and Keppra. plan for PEG tomorrow. 04/15 No events overnight. Remains intubated. On no sedation. For PEG tube placement today. T:101.2 last night. 04/16 Patient remains intubated. For trach this afternoon. s/p PEG tube placement yesterday. Spiked fever with T:102.5 last night. 04/17 Patient s/p trach yesterday. T: 100.3 at midnight. 04/18 Continues to have low-grade fever. No change in mental status. Sputum Pseudomonas pansensitive. No seizures reported in the last 24 hours 04/19: No fever reported. Slightly more awake and was commands on right upper extremity by squeezing hands very weakly. On CPAP 15/04. Slightly tachypneic 04/20: WBC count slightly elevated today, tachypnea on CPAP. Continues to follow commands weakly on right hand. Intermittently about to wiggle toes. Slight increase in white count to 13,000. Tmax 100.9 ID following 04/21: Tolerated only 1 hour CPAP yesterday. Unable to reduce pressure support. Tmax 99.9 04/22: Remains on mechanical ventilation via tracheostomy. Tolerated C Pap trial for 1 hour yesterday. 04/23: Remains on mechanical ventilation via tracheostomy. Daily C Pap trials ongoing. Tolerating tube feeds. 04/24: Afebrile. Copious edema//swelling extremities. Decreased urine output noted. Remains on mechanical ventilation via trach acid. Daily C Pap trials ongoing. Positive BM. 04/25: Tmax 99.5. With copious edema. Will give 1 additional dose of Bumex today after albumin. Remains on ventilator via tracheostomy. Ongoing CPAP trials. 04/26: Tmax 100. Diuresed yesterday. Remains on ventilator via tracheostomy. Positive BM. 04/27: Diuresed well yesterday. Tolerating CPAP trials 4 hours today. Positive BM. Awake and interactive. Subjective: 04/28: Decreased urine output noted today. Low-grade temperature 99.3. Tolerating CPAP trials for the past 24 hours currently at 18/5 at 40%. 04/29: Awake and alert. Tolerating C Pap trials. 04/30: Drowsy, easily arousable. Tolerating C Pap trials. 05/01: Drowsy, arousable, tolerating C Pap trials. Objective Vital Signs Date Time Temp Pulse Resp B/P Pulse Ox O2 Delivery O2 Flow Rate FiO2 05/01/17 14:00 92 05/01/17 12:00 30 05/01/17 12:00 99.6 25 112/73 100 04/28/17 08:56 Ventilator Intake and Output 04/30/17 04/30/17 05/01/17 08:00 16:00 00:00 Intake Total 521 ml 547 ml 520 ml Output Total 250 ml 650 ml 350 ml Balance 271 ml -103 ml 170 ml Result Diagram: 04/30/17 0844 04/29/17 0456 Imaging Last Impressions Chest X-Ray 04/28/17 0600 Signed Impressions: Service Date/Time: Friday, April 28, 2017 04:27 - CONCLUSION: 1. Bilateral basilar and perihilar air space disease slightly improved on the right. No significant effusion. Tracheostomy in satisfactory position Miguel Looney MD Abdomen/Pelvis CT 04/16/17 0000 Signed Impressions: Service Date/Time: Sunday, April 16, 2017 11:26 - CONCLUSION: 1. Cirrhosis and splenomegaly. 2. Ascites 3. Anasarca 4. No pancreas mass identified Yinka Harman MD Liver Ultrasound 04/15/17 0000 Signed Impressions: Service Date/Time: Saturday, April 15, 2017 09:24 - CONCLUSION: 1. Abnormal appearance of the pancreas with a nonspecific hypoechoic area involving the posterior part of the pancreas along the head and body region. Recommend CT scan of the abdomen with oral and IV contrast further evaluation. 2. Fatty infiltration throughout the liver. 3. There is thickening of the gallbladder wall at 6 mm. This is suggestive of chronic gallbladder disease. 4. Small amount of free fluid adjacent to the liver and spleen in the upper abdomen.. 5. Right-sided pleural effusion. Víctor Rosas MD Abdomen X-Ray 04/13/17 0000 Signed Impressions: Service Date/Time: Thursday, April 13, 2017 10:36 - CONCLUSION: Dobbhoff tip in distal stomach. No evidence of obstruction. Logan Morgan MD Head CT 04/12/17 0000 Signed Impressions: Service Date/Time: Wednesday, April 12, 2017 21:30 - CONCLUSION: Pontine encephalomalacia. Left mastoiditis. Casper Alva MD Head Magnetic Resonance Angiography 03/28/17 0000 Signed Impressions: Service Date/Time: March 17:22 - CONCLUSION: Unremarkable examination. Bety Castillo MD Brain MRI 03/28/17 0000 Signed Impressions: Service Date/Time: March 17:22 - CONCLUSION: 1. 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 Small subacute ischemic bilateral thalamic infarcts. 2. There has been no significant change when compared to the prior exam. Yinka Harman MD Lower Extremity Ultrasound 03/25/17 0000 Signed Impressions: Service Date/Time: Saturday, March 25, 2017 22:17 - CONCLUSION: No evidence of DVT. Víctor Rosas MD CT Angiography 03/21/17 0000 Signed Impressions: Service Date/Time: March 00:33 - CONCLUSION: No evidence of pulmonary embolism is identified. Mild atelectasis left lung base. Fluid or phlegm within the trachea. Milo Muhammad MD Abdomen Ultrasound 03/20/17 0000 Signed Impressions: Service Date/Time: Monday, March 20, 2017 11:38 - CONCLUSION: 1. Hepatosplenomegaly without focal lesion. 2. Probable sludge within the lumen of the gallbladder. No intrahepatic duct. Cheo Martínez MD Shoulder X-Ray 03/02/17 1404 Signed Impressions: Service Date/Time: Thursday, March 02, 2017 15:18 - CONCLUSION: No evidence of recent bony injury. Deformity of the lateral left clavicle suggests old healed trauma. Cheo Martínez MD Maxillofacial CT 03/02/17 1342 Signed Impressions: Service Date/Time: Thursday, March 02, 2017 14:52 - CONCLUSION: Negative CT of the facial bones. Cheo Martínez MD Chest CT 03/02/17 1342 Signed Impressions: Service Date/Time: Thursday, March 02, 2017 15:04 - CONCLUSION: 1. Abnormal appearance of the lateral left clavicle suggesting a combination of acute and chronic bony injury. Fracture lucencies without bridging callus is seen the region of the coracoid process. 2. The lungs are clear. No evidence of pneumothorax. 3. Moderate size hiatus hernia. Cheo Martínez MD Cervical Spine CT 03/02/17 1342 Signed Impressions: Service Date/Time: Thursday, March 02, 2017 14:52 - CONCLUSION: Negative CT cervical spine. Cheo Martínez MD Objective Remarks GENERAL: 61-year-old chronically ill appearing male, critically ill. HEENT: Healing abrasion left side scalp. TIMOTHY. Scleral icterus. Poor dentition. NECK: Trachea Midline, Trach without bleed RESP: Coarse breath sounds bilaterally. Occasional and extremities. CARDIOVASCULAR: Tachycardia, RR. S1, S2. No S4. ABDOMEN: Slightly distended but soft, bowel sounds present, tolerating tube feeds. G-tube is clear dry and intact : Johns in place with conrad urine output. mild/moderate scrotal edema. MUSCULOSKELETAL: No obvious deformity. 1+ to 2+ edema all extremities NEUROLOGICAL: Eyes are open spontaneously. Following commands on right upper extremity by squeezing hands weakly. Wiggles toes very weakly A/P Assessment and Plan Neuro/Psych: Osmotic demyelination syndrome Acute toxic metabolic encephalopathy secondary to hypercarbic respiratory failure Alcohol dependence Seizures (History of EtOH induced seizure withdrawal) Chronic benzodiazepine use Bilateral thalamic CVA Off all sedation. oxycodone 5 mg every 4 hours as needed for pain. Ativan 0.5 mg PRN for sz MRI 03/21 - findings consistent with Osmotic demyelination syndrome. ODS most likely from rapid correction of Na, with underlying alcoholism. ( Patient was profoundly hypotensive in shock requiring multiple pressors at that time) MRI brain 03/28 revealed subacute bilateral thalamic lacunar infarcts, ODS. CT head 03/05 revealed no acute intracranial findings Continue thiamine 100 mg daily Seen by neurology/Dr. Mazariegos. EEG previously with persistent. continue Keppra 1000mg BID Respiratory: Acute hypoxemic hypercapnic respiratory failure PRVC 18/550/1.2//35. Continue with vent support keep sat >92% Spontaneous breathing trials daily. Currently a PSV trial 11/05 at 40% 4 hours Ventilator bundle, s/p trach 04/16 Bronchodilator therapy every 6 hours and as needed SBT daily as pablo. Pulm toilet, trach care. Cardiovascular: Chronic Systolic heart failure Echocardiogram 03/04 revealed EF 35-40%. Mild MR. Left atrium dilated. JANE 33 mmHg s/p hydrocortisone. Continue midodrine 10 mg 3 times Monitor HR and BP keep MAP>65mmHg Renal/FEN: Acute Kidney Injury Rhabdomyolysis- resolved ODS-see neuro Hypernatremia - resolving Monitor renal function, I/O's, electrolytes replacement per protocol. DC D5/12/03 NS 04/21 GI: EtOH cirrhosis Hyperammonemia Hiatal hernia Sigmoid diverticulosis Hypoalbuminemia Continue tube feeds via PEG tube-(Jevity 1.5 with goal rate 60ml/hr) s/p PEG tube placement 04/15 CT abdomen/pelvis 04/16: Cirrhosis of liver, splenomegaly, anasarca, ascites(mild ) On Xifaxan 550 twice a day/lactulose 30 twice a day. US Liver 04/15: Abnormal appearance of the pancreas with a nonspecific hypoechoic area involving the posterior part of the pancreas along the head and body region. Fatty infiltration throughout the liver. There is thickening of the gallbladder wall at 6 mm. Suggestive of chronic gallbladder disease. Small amount of free fluid adjacent to the liver and spleen in the upper abdomen. Right-sided pleural effusion. 03/20 Ultrasound liver-hepatosplenomegaly. Sludge in gallbladder On IV Protonix switched to Prevacid Heme: Leukocytosis Macrocytic anemia - now normocytic Monitor CBC. No indications for transfusion of blood proximally postop B12 1452, Folate 15.2. TSH 0.8. ID: Aspiration pneumonia, PSAE in sputum Escherichia coli UTI 03/11 - completed therapy Acinetobacter pneumonia Pertinent cultures 04/29 - MDR Acinetobacter 04/26 - urine -C. albicans 04/15 Sputum cx: PSAE 04/15 urine cx: Klebsiella 04/15 BC: NGTD 04/12 BC: NGTD 04/08 - blood cultures 2 - no growth 04/08 - sputum - no growth 04/05 - urine -C GLABRATA AND C. ALBICANS 03/29 - blood cultures 2 - NGTD 03/25 - sputum --Acinetobacter. 03/25 - urine - NGTD 03/25 - blood cultures 2 -no growth 03/22 - urine - no growth 03/22 - blood cultures 2 - negative 03/20 - blood cultures 2 - no growth 03/11 - urine - Escherichia coli 03/02 - blood cultures 2 - no growth Followed by Dr. Lisa/ID. Changed Zosyn to cefepime 04/17 Levaquin started 04/20/17 by ID. Complete therapy by 04/30/17 Started Diflucan 100 daily 04/26 for C. albicans funguria - to complete 7 days of therapy Off Flagyl po 03/24 Procalcitonin level: 0.40, C-diff PCR negative 04/10 Colistin nebs for MDRO Acinetobacter in sputum 04/29 Endocrine: Hyperglycemia of critical illness History of hypothyroidism SSI with Accu-Cheks every 4 hours to maintain euglycemia MSK: History of old left clavicle fracture PT/OT evaluate and treat Access Peripheral IV. Prophylaxis: GI -Prevacid DVT - SCD/heparin subcutaneous Palliative care is following code status changed to full code per daughter's request. Tamanna Sandhu, daughter/ HCP: from [facility] [phone] now confirmed transferred to [facility] in [place] facility ([phone]) Code status -full code CM working on LTAC placement Level 2 Elliott Rock MD May 01, 2017 15:33
[2017-05-02] VITALS (18 sets, daily range): BP systolic 116–132; BP diastolic 74–84; PULSE 85–108; RESP 18–24; TEMP 98.6–99.1; O2SAT 93–100
[2017-05-02] MEDS: RESP: ALBUTEROL 2.5 MG/IPRATROPIUM 0.5 MG NEB (SCH) NEB ×4 (03:34→20:25)
[2017-05-02] MEDS: MIDODRINE 5 MG TAB PO SCH ×3 (06:47→22:48)
[2017-05-02] MEDS: SODIUM CHLORIDE 0.9% FLUSH 10 ML FLUSH IVF SCH (09:00)
[2017-05-02] MEDS: MUPIROCIN 2% OINT 1 APPLIC/GM SYR EACH NARE SCH ×2 (09:00→22:48)
[2017-05-02] MEDS: LACTULOSE SYRUP 20 GM/30 ML CUP PO SCH ×2 (09:00→22:47)
[2017-05-02] MEDS: INSULIN NovoLIN REGULAR SUPPLEMENTAL SCALE SQ SCH ×2 (09:00→20:11)
[2017-05-02] MEDS: RESP: COLISTIN 150 MG VIAL NEB SCH ×2 (09:33→21:07)
--- NOTE | 2017-05-02 10:01 | HHI.CCPN ---
Subjective Remarks/Hospital Course This is a 61-year-old male with a past history of alcohol abuse and a prior admission in 2015 for severe life-threatening hyponatremia at that time with a serum sodium of 98. He presents today with what he states is a 13 day history of worsening fatigue and weakness. He is very altered and is very difficult to understand the patient. What I can understand from him, is that at some point during these 13 days he has fallen and hit his face. Otherwise he states he lays on the couch, and has not gotten not much. He states he drinks 1 beer in the morning, and 1 beer in the afternoon. He does endorse taking some Xanax to help him sleep. He denies other drug use. He denies chest pain, shortness of breath, fever, chills, nausea, vomiting, abdominal pain. It is very difficult to get him to answer anymore questions about his medical history. His speech is very slurred and he is trying to talk about how he misses his daughter. Emergency department he was found to have a serum sodium of 99, a bilirubin of 8.9, lactate of 9.8, ammonia of 60, CK of 7000, elevated troponin of 4.9 with a normal MB ratio, creatinine 1.5, serum bicarbonate of 13. His white count is 12 , platelets 112. INR 1.9. His MELD calculates at 26. 4/2: Sodium level rapidly corrected overnight, likely secondary to appropriate correction of severe life-threatening dehydration. NS fluids changed to 1/2NS and correction slowed down significantly. sodium up to 130 this AM. CK downtrending. however, patient remains severely hypotensive requiring Levophed to maintain a map > 65 mmHg. This AM, serum K 1.6 (confirmed). started replacement with 200meq KCl and recheck K. 03/04: persists in vasoplegic distributive shock. afebrile. no evidence of infection. wbc downtrending. persists with severe life-threatening electrolyte derangements. passed swallow eval for nectar thick liquids. sodium stable at 131. ck downtrending. 03/05: persists in distributive shock. echo yesterday with EF 30%, globally decreased function. milrinone added yesterday with improvement in vasopressor requirement. still with multiple electrolyte abnormalities despite very aggressive replacement. very poor appetite. sodium stable at 131, which appears to be around baseline for him, looking back at prior records. also became agitated and delirious yesterday, likely secondary to etoh withdraw. started on Ativan and Librium. 03/06: electrolyte derangements persist. placed on continuous NaPhos infusion x 24h due to severe life-threatening hypophosphatemia. serial K, phos checks. weaning off levophed, milrinone persists. still poor appetite. sodium jumped from 132 to 139, but no significant mental status change, and we did not increase sodium load. 03/07: still requiring high electrolyte replacement. milrinone weaned to 0.375 mcg /kg/min overnight. still doing well with that. delirium persists. 03/08 Remains on milrinone. Electrolyte improving. Remains very lethargic, intermittently follows commands 03/09: Continues to be lethargic but wakes up follows some commands. Remains on milrinone will DC today. T max 100.1, urine output adequate sodium is 143 03/10: More awake alert, ate 50% of break fast. Will DC Dobhoff. Discontinue arterial and central lines. Delirium also improved, remains weak 03/11: doing much better this morning. no complaints. still with poor appetite. electrolytes improved. 03/20: We consulted for respiratory failure. Patient was last seen in room 1415 CMP receiving oral cares and became acutely hypoxic saturations 82% with coarse breath sounds. Halicat called. Patient was placed on a Venturi mask 50 % with desaturations to the mid 90s. He received Solu-Medrol 20 mg IV 1, Lasix 40 mg IV 1 and was transferred IM [facility] 521. Hemodynamically stable. Poor mentation 03/25: Reconsulted due to respiratory failure. Patient with gurgling/ transmitted upper airway sounds. Respiration the 50s. Decision made to orotracheally intubate. Noted to have been febrile with increased O2 course over the past 48 hours. 03/26: Afebrile. Requiring Nimbex drip for ventilator synchrony. Decreased urine output noted. Hemoglobin decreased likely dilutional. Tolerating tube feeding. Electrolytes been replaced. 03/27: Tmax 100.9. Currently 97.2. +6 L past 24 hours. Hemoglobin 8 transfuse overnight. Potassium 3. We'll discontinue Nimbex drip for vent synchrony today. 03/28: Afebrile. Negative fluid balance past 24 hours. Hemoglobin currently 9. Potassium 3.0. Currently on sedation vacation positive gag and otherwise unresponsive. 03/29: Tmax 103. Currently afebrile. Not tolerating tube feeds. Remains on Kiran-Synephrine. Did not tolerate sedation vacation back on Versed at 5 mg an hour fentanyl drip at 100 mcg an hour. One bowel movement. 03/30 Tube feeds remain on hold. On neosynephrine 40 mcg/min, RN states she has been weaning. Having BMs. On Versed 8 mg/hr and fentanyl 100 mcg/hr. 03/31 Off versed. Remains on fentanyl 100 mcg/hr. Having hiccups. Still on neosynephrine 40 mcg/min. Tolerating trickle feeds. Had 2 bowel movements 04/01: no meaningful change. still requires fentanyl for sedation. still on low- dose vasopressors. 04/02: no changes. still on levo @ 7 mcg/min. unable to wean off fentanyl due to tachycardia and tachypnea. 04/03: Off all sedation. On low-dose norepinephrine. Essentially unresponsive on the ventilator. Plan for likely withdrawal of care tomorrow 04/04: Off all sedation. Off all vasopressors. According to overnight RN was following commands. Will open eyes but not following commands this AM. 04/05 No events overnight. Afebrile On no sedation. 04/06: Resting comfortably in bed. Eyes are open. Moving head back and forth continuously. Weakly following commands with his upper and lower extremities. 04/07: Low-grade temperatures overnight. 99.8. Eyes are open. Moving back and forth. Positive BM. Continues to be following commands. 04/08 Patient remains intubated on no sedation awake and follows commands. Tmax 100.8 04/09 Patient remains intubated, tolerated CPAP all day and had good responses in UO with Bumex yesterday. Afebrile. 04/10: Tmax 99.1. Went back on set rate ventilation yesterday. Will attempt PSV trials throughout the day with goal to attempt extubation tomorrow. 04/11: Tmax 100.2. Currently 100.1. Did not tolerate weaning parameters with NIF -9 and unacceptable RSBI. Patient is arousable and follows commands eyes open 04/12: Omayra care reports tonic-clonic seizure activity this AM. Heart rate in the 140s during episode with violent shaking. On examination, patient's eyes are open and at baseline except currently not following commands. 04/13: had 2 seizures this morning, both resolved without medication interventions. Dr. Fabrizio navas'd at bedside earlier and ordered Cerebyx load. no other changes. plan for trach/peg next week 04/14: still having breakthrough seizures on repeat EEG despite Cerebyx and Keppra. plan for PEG tomorrow. 04/15 No events overnight. Remains intubated. On no sedation. For PEG tube placement today. T:101.2 last night. 04/16 Patient remains intubated. For trach this afternoon. s/p PEG tube placement yesterday. Spiked fever with T:102.5 last night. 04/17 Patient s/p trach yesterday. T: 100.3 at midnight. 04/18 Continues to have low-grade fever. No change in mental status. Sputum Pseudomonas pansensitive. No seizures reported in the last 24 hours 04/19: No fever reported. Slightly more awake and was commands on right upper extremity by squeezing hands very weakly. On CPAP 15/04. Slightly tachypneic 04/20: WBC count slightly elevated today, tachypnea on CPAP. Continues to follow commands weakly on right hand. Intermittently about to wiggle toes. Slight increase in white count to 13,000. Tmax 100.9 ID following 04/21: Tolerated only 1 hour CPAP yesterday. Unable to reduce pressure support. Tmax 99.9 04/22: Remains on mechanical ventilation via tracheostomy. Tolerated C Pap trial for 1 hour yesterday. 04/23: Remains on mechanical ventilation via tracheostomy. Daily C Pap trials ongoing. Tolerating tube feeds. 04/24: Afebrile. Copious edema//swelling extremities. Decreased urine output noted. Remains on mechanical ventilation via trach acid. Daily C Pap trials ongoing. Positive BM. 04/25: Tmax 99.5. With copious edema. Will give 1 additional dose of Bumex today after albumin. Remains on ventilator via tracheostomy. Ongoing CPAP trials. 04/26: Tmax 100. Diuresed yesterday. Remains on ventilator via tracheostomy. Positive BM. 04/27: Diuresed well yesterday. Tolerating CPAP trials 4 hours today. Positive BM. Awake and interactive. Subjective: 04/28: Decreased urine output noted today. Low-grade temperature 99.3. Tolerating CPAP trials for the past 24 hours currently at 18/5 at 40%. 04/29: Awake and alert. Tolerating C Pap trials. 04/30: Drowsy, easily arousable. Tolerating C Pap trials. 05/01: Drowsy, arousable, tolerating C Pap trials. 05/02: Awake and alert. On mechanical ventilation via tracheostomy. Daily C Pap trials ongoing. Objective Vital Signs Date Time Temp Pulse Resp B/P Pulse Ox O2 Delivery O2 Flow Rate FiO2 05/02/17 09:46 97 30 05/02/17 06:00 95 05/02/17 04:00 98.6 18 123/80 04/28/17 08:56 Ventilator Intake and Output 05/01/17 05/01/17 05/02/17 08:00 16:00 00:00 Intake Total 600 ml 550 ml 588 ml Output Total 550 ml 700 ml 600 ml Balance 50 ml -150 ml -12 ml Result Diagram: 04/30/17 0844 04/29/17 0456 Imaging Last Impressions Chest X-Ray 04/28/17 0600 Signed Impressions: Service Date/Time: Friday, April 28, 2017 04:27 - CONCLUSION: 1. Bilateral basilar and perihilar air space disease slightly improved on the right. No significant effusion. Tracheostomy in satisfactory position Miguel Looney MD Abdomen/Pelvis CT 04/16/17 0000 Signed Impressions: Service Date/Time: Sunday, April 16, 2017 11:26 - CONCLUSION: 1. Cirrhosis and splenomegaly. 2. Ascites 3. Anasarca 4. No pancreas mass identified Yinka Harman MD Liver Ultrasound 04/15/17 0000 Signed Impressions: Service Date/Time: Saturday, April 15, 2017 09:24 - CONCLUSION: 1. Abnormal appearance of the pancreas with a nonspecific hypoechoic area involving the posterior part of the pancreas along the head and body region. Recommend CT scan of the abdomen with oral and IV contrast further evaluation. 2. Fatty infiltration throughout the liver. 3. There is thickening of the gallbladder wall at 6 mm. This is suggestive of chronic gallbladder disease. 4. Small amount of free fluid adjacent to the liver and spleen in the upper abdomen.. 5. Right-sided pleural effusion. Víctor Rosas MD Abdomen X-Ray 04/13/17 0000 Signed Impressions: Service Date/Time: Thursday, April 13, 2017 10:36 - CONCLUSION: Dobbhoff tip in distal stomach. No evidence of obstruction. Logan Morgan MD Head CT 04/12/17 0000 Signed Impressions: Service Date/Time: Wednesday, April 12, 2017 21:30 - CONCLUSION: Pontine encephalomalacia. Left mastoiditis. Casper Alva MD Head Magnetic Resonance Angiography 03/28/17 0000 Signed Impressions: Service Date/Time: March 17:22 - CONCLUSION: Unremarkable examination. Bety Castillo MD Brain MRI 03/28/17 0000 Signed Impressions: Service Date/Time: March 17:22 - CONCLUSION: 1. 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 Small subacute ischemic bilateral thalamic infarcts. 2. There has been no significant change when compared to the prior exam. Yinka Harman MD Lower Extremity Ultrasound 03/25/17 0000 Signed Impressions: Service Date/Time: Saturday, March 25, 2017 22:17 - CONCLUSION: No evidence of DVT. Víctor Rosas MD CT Angiography 03/21/17 0000 Signed Impressions: Service Date/Time: March 00:33 - CONCLUSION: No evidence of pulmonary embolism is identified. Mild atelectasis left lung base. Fluid or phlegm within the trachea. Milo Muhammad MD Abdomen Ultrasound 03/20/17 0000 Signed Impressions: Service Date/Time: Monday, March 20, 2017 11:38 - CONCLUSION: 1. Hepatosplenomegaly without focal lesion. 2. Probable sludge within the lumen of the gallbladder. No intrahepatic duct. Cheo Martínez MD Shoulder X-Ray 03/02/17 1404 Signed Impressions: Service Date/Time: Thursday, March 02, 2017 15:18 - CONCLUSION: No evidence of recent bony injury. Deformity of the lateral left clavicle suggests old healed trauma. Cheo Martínez MD Maxillofacial CT 03/02/17 1342 Signed Impressions: Service Date/Time: Thursday, March 02, 2017 14:52 - CONCLUSION: Negative CT of the facial bones. Cheo Martínez MD Chest CT 03/02/17 1342 Signed Impressions: Service Date/Time: Thursday, March 02, 2017 15:04 - CONCLUSION: 1. Abnormal appearance of the lateral left clavicle suggesting a combination of acute and chronic bony injury. Fracture lucencies without bridging callus is seen the region of the coracoid process. 2. The lungs are clear. No evidence of pneumothorax. 3. Moderate size hiatus hernia. Cheo Martínez MD Cervical Spine CT 03/02/17 1342 Signed Impressions: Service Date/Time: Thursday, March 02, 2017 14:52 - CONCLUSION: Negative CT cervical spine. Cheo Martínez MD Objective Remarks GENERAL: 61-year-old chronically ill appearing male, critically ill. HEENT: Healing abrasion left side scalp. TIMOTHY. Scleral icterus. Poor dentition. NECK: Trachea Midline, Trach without bleed RESP: Coarse breath sounds bilaterally. Occasional and extremities. CARDIOVASCULAR: Tachycardia, RR. S1, S2. No S4. ABDOMEN: Slightly distended but soft, bowel sounds present, tolerating tube feeds. G-tube is clear dry and intact : Johns in place with conrad urine output. mild/moderate scrotal edema. MUSCULOSKELETAL: No obvious deformity. 1+ to 2+ edema all extremities NEUROLOGICAL: Awake and alert, following commands. Grade 3 power in upper extremities distally. Can wiggle his toes. A/P Assessment and Plan Neuro/Psych: Osmotic demyelination syndrome Acute toxic metabolic encephalopathy secondary to hypercarbic respiratory failure Alcohol dependence Seizures (History of EtOH induced seizure withdrawal) Chronic benzodiazepine use Bilateral thalamic CVA Off all sedation. oxycodone 5 mg every 4 hours as needed for pain. Ativan 0.5 mg PRN for sz MRI 03/21 - findings consistent with Osmotic demyelination syndrome. ODS most likely from rapid correction of Na, with underlying alcoholism. ( Patient was profoundly hypotensive in shock requiring multiple pressors at that time) MRI brain 03/28 revealed subacute bilateral thalamic lacunar infarcts, ODS. CT head 03/05 revealed no acute intracranial findings Continue thiamine 100 mg daily Seen by neurology/Dr. Mazariegos. EEG previously with persistent. continue Keppra 1000mg BID Respiratory: Acute hypoxemic hypercapnic respiratory failure PRVC 18/550/1.2//35. Continue with vent support keep sat >92% Spontaneous breathing trials daily. Ventilator bundle, s/p trach 04/16 Bronchodilator therapy every 6 hours and as needed SBT daily as pablo. Pulm toilet, trach care. Cardiovascular: Chronic Systolic heart failure Echocardiogram 03/04 revealed EF 35-40%. Mild MR. Left atrium dilated. JANE 33 mmHg s/p hydrocortisone. Continue midodrine 10 mg 3 times Monitor HR and BP keep MAP>65mmHg Renal/FEN: Acute Kidney Injury Rhabdomyolysis- resolved ODS-see neuro Hypernatremia - resolving Monitor renal function, I/O's, electrolytes replacement per protocol. DC D5/12/03 NS 04/21 GI: EtOH cirrhosis Hyperammonemia Hiatal hernia Sigmoid diverticulosis Hypoalbuminemia Continue tube feeds via PEG tube-(Jevity 1.5 with goal rate 60ml/hr) s/p PEG tube placement 04/15 CT abdomen/pelvis 04/16: Cirrhosis of liver, splenomegaly, anasarca, ascites(mild ) On Xifaxan 550 twice a day/lactulose 30 twice a day. US Liver 04/15: Abnormal appearance of the pancreas with a nonspecific hypoechoic area involving the posterior part of the pancreas along the head and body region. Fatty infiltration throughout the liver. There is thickening of the gallbladder wall at 6 mm. Suggestive of chronic gallbladder disease. Small amount of free fluid adjacent to the liver and spleen in the upper abdomen. Right-sided pleural effusion. 03/20 Ultrasound liver-hepatosplenomegaly. Sludge in gallbladder On IV Protonix switched to Prevacid Heme: Leukocytosis Macrocytic anemia - now normocytic Monitor CBC. No indications for transfusion of blood proximally postop B12 1452, Folate 15.2. TSH 0.8. ID: Aspiration pneumonia, PSAE in sputum Escherichia coli UTI 03/11 - completed therapy Acinetobacter pneumonia Pertinent cultures 04/29 - MDR Acinetobacter 04/26 - urine -C. albicans 04/15 Sputum cx: PSAE 04/15 urine cx: Klebsiella 04/15 BC: NGTD 04/12 BC: NGTD 04/08 - blood cultures 2 - no growth 04/08 - sputum - no growth 04/05 - urine -C GLABRATA AND C. ALBICANS 03/29 - blood cultures 2 - NGTD 03/25 - sputum --Acinetobacter. 03/25 - urine - NGTD 03/25 - blood cultures 2 -no growth 03/22 - urine - no growth 03/22 - blood cultures 2 - negative 03/20 - blood cultures 2 - no growth 03/11 - urine - Escherichia coli 03/02 - blood cultures 2 - no growth Followed by Dr. Lisa/ID. Changed Zosyn to cefepime 04/17 Levaquin started 04/20/17 by ID. Complete therapy by 04/30/17 Started Diflucan 100 daily 04/26 for C. albicans funguria - to complete 7 days of therapy Off Flagyl po 03/24 Procalcitonin level: 0.40, C-diff PCR negative 04/10 Colistin nebs for MDRO Acinetobacter in sputum 04/29 Endocrine: Hyperglycemia of critical illness History of hypothyroidism SSI with Accu-Cheks every 4 hours to maintain euglycemia MSK: History of old left clavicle fracture PT/OT evaluate and treat Access Peripheral IV. Prophylaxis: GI -Prevacid DVT - SCD/heparin subcutaneous Palliative care is following code status changed to full code per daughter's request. Tamanna Sandhu, daughter/ HCP: from [facility] [phone] now confirmed transferred to [facility] in [place] facility ([phone]) Code status -full code CM working on LTAC placement Level 2 Elliott Rock MD May 02, 2017 10:01
[2017-05-02] MEDS: RIFAXIMIN 550 MG TAB PO SCH ×2 (10:05→22:47)
[2017-05-02] MEDS: levETIRAcetam 500 MG/5 ML UDC NG SCH ×2 (10:05→22:48)
[2017-05-02] MEDS: THIAMINE HCL 100 MG TAB PO SCH (10:06)
[2017-05-02] MEDS: FLUCONAZOLE 100 MG TAB PO SCH (10:06)
[2017-05-02] MEDS: LACTOBACILLUS ACIDOPHILUS TAB PO SCH ×3 (10:06→17:01)
[2017-05-02] MEDS: LANSOPRAZOLE SOLUTAB 30 MG TAB NG SCH (10:06)
[2017-05-02] MEDS: ARTIFICIAL TEARS OPTH SOLN 15 ML BTL EACH EYE SCH ×3 (10:07→17:01)
[2017-05-02] MEDS: NYSTATIN 100,000 U/GM PWD 15 GM BTL TOPICAL SCH ×2 (10:07→22:47)
[2017-05-02] MEDS: HEPARIN SODIUM - SQ 10,000 UNITS/ML VIAL SQ SCH ×2 (10:08→22:42)
[2017-05-02] MEDS: CHLORHEXIDINE 0.12% (ORAL KIT) 15 ML CUP MT SCH ×2 (10:09→20:10)
[2017-05-02] MEDS: SODIUM CHLORIDE 0.9% FLUSH 10 ML FLUSH IV FLUSH SCH ×2 (10:09→20:12)
[2017-05-02] MEDS: SODIUM HYPOCHLORITE 0.125% 500 ML BTL TOPICAL SCH (13:07)
--- NOTE | 2017-05-02 13:34 | HHI.HCPN ---
Reason for visit a. To assist with evaluation and management of symptoms including: dyspnea, pain. b. To assist medical decision maker(s) with: better understanding of current medical conditions; weighing benefits/burdens of medical treatment options; making medical treatment decisions. . Subjective/Interval History Patient seen and examined in ICU. No family at bedside. Patient status post PEG tube placement on 04/15/17 and tracheostomy on 04/16/17. He remains intubated on mechanical ventilation via tracheostomy. Ongoing daily CPAP trials , tolerating an average of 12-16 hours daily. No seizure activity noted. patient awake, alert. Following commands and communicating by mouthing words and nodding head to yes/no questions. Patient denies pain or discomfort. Afebrile, stable hemodynamically. Most recent lab 04/3017 WBC 10.3, hgb 3.0, pl count 160. Urine culture 04/26/17 positive for karl. Sputum culture 04/29/17 positive for pseudomonas aeruginosa and acinetobacter Baumannii. ID following. Ongoing discharge planning. Likely placement to long-term facility. No family at beside. Palliative care spoke with patient's daughter last week to provide update. No new acute events to report. Case discussed with bedside RNJack. . Family/friend interactions See interval note. . Advance Directives Living Will: Never completed Health Care Surrogate: Never completed Durable Power of Supervisor Blueprinting And Photocopy: Never completed Advance Directive Specifics Health Care Surrogate(s): Margot Tamanna is, per [place] statues bam care decision proxy. Now in [facility] (#[phone]). Facilitation of conversations with Tamanna can be arranged through booking (#[phone]) in emergency situations to address goals of care.Ask for a Lucila on staff as shifts rotate throughout the week. Significant change in goals: FULL CARE. continue aggressive management. Objective Vital Signs Date Time Temp Pulse Resp B/P Pulse Ox O2 Delivery O2 Flow Rate FiO2 05/02/17 12:07 97 30 05/02/17 12:00 106 05/02/17 12:00 98.9 86 24 116/74 96 05/02/17 12:00 30 05/02/17 10:00 101 05/02/17 09:46 97 30 05/02/17 08:00 30 05/02/17 08:00 98.9 90 22 123/80 05/02/17 08:00 90 05/02/17 06:00 95 05/02/17 04:00 98.6 96 18 123/80 95 05/02/17 04:00 30 05/02/17 04:00 96 05/02/17 03:34 100 30 05/02/17 02:00 92 05/02/17 00:00 30 05/02/17 00:00 98.8 88 18 126/79 97 05/02/17 00:00 88 05/01/17 23:30 100 30 05/01/17 23:30 30 05/01/17 22:35 100 30 05/01/17 22:00 91 05/01/17 20:17 100 30 05/01/17 20:00 91 05/01/17 20:00 30 05/01/17 20:00 99.0 91 23 127/79 100 05/01/17 18:02 86 05/01/17 17:42 22 05/01/17 16:15 99 30 05/01/17 16:00 98.6 87 23 125/78 100 05/01/17 16:00 30 05/01/17 16:00 87 05/01/17 14:00 92 Intake & Output 05/02/17 05/02/17 07:00 19:00 Intake Total 1247 ml Output Total 1250 ml Balance -3 ml IV Total 20 ml Tube Feeding 927 ml Other 300 ml Output Urine Total 950 ml Stool Total 300 ml Physical Exam CONSTITUTIONAL/GENERAL: This is an thin, pale appearing patient, in no apparent distress. On mechanical ventilation via tracheostomy. TUBES/LINES/DRAINS: Tracheostomy, PEG tube, Jhons, rectal tube, SCDs. Bilateral heel boots. SKIN: Ecchymosis bilateral UEs and face. Erythema/rash to forehead and bilateral cheeks. Skin temperature appropriate. CARDIOVASCULAR: Regular rate and rhythm. Edema to upper and lower extremities. RESPIRATORY/CHEST: Symmetric, on mechanical ventilation via trach. Coarse rhonchi anteriorly. GASTROINTESTINAL: Abdomen round, soft. Positive bowel sounds. Ongoing tube feedings via PEG tube. GENITOURINARY: Without palpable bladder distension. Johns catheter in place. Erythema groin area, scrotal edema noted. MUSCULOSKELETAL: Generalized edema noted. No mottling or clubbing. Very weak hand grasp bilaterally L>R. NEUROLOGICAL: Awake, alert. Interactive, communicating by nodding head to yes/ no questions and mouthing words. Following some commands. PSYCHIATRIC: Awake and alert. Appears calm. . Diagnostic Tests Laboratory Laboratory Tests Test 04/30/17 08:44 White Blood Count 10.3 TH/MM3 (4.0-11.0) Red Blood Count 2.42 MIL/MM3 (4.50-5.90) Hemoglobin 8.0 GM/DL (13.0-17.0) Hematocrit 24.1 % (39.0-51.0) Mean Corpuscular Volume 99.4 FL (80.0-100.0) Mean Corpuscular Hemoglobin 33.1 PG (27.0-34.0) Mean Corpuscular Hemoglobin 33.3 % Concent (32.0-36.0) Red Cell Distribution Width 15.1 % (11.6-17.2) Platelet Count 160 TH/MM3 (150-450) Mean Platelet Volume 8.6 FL (7.0-11.0) Neutrophils (%) (Auto) 76.5 % (16.0-70.0) Lymphocytes (%) (Auto) 14.7 % (9.0-44.0) Monocytes (%) (Auto) 6.7 % (0.0-8.0) Eosinophils (%) (Auto) 1.5 % (0.0-4.0) Basophils (%) (Auto) 0.6 % (0.0-2.0) Neutrophils # (Auto) 7.9 TH/MM3 (1.8-7.7) Lymphocytes # (Auto) 1.5 TH/MM3 (1.0-4.8) Monocytes # (Auto) 0.7 TH/MM3 (0-0.9) Eosinophils # (Auto) 0.2 TH/MM3 (0-0.4) Basophils # (Auto) 0.1 TH/MM3 (0-0.2) CBC Comment DIFF FINAL Differential Comment Result Diagram: 04/30/17 0844 04/29/17 0456 Microbiology Microbiology Date/Time Procedure Status Source Growth 04/29/17 15:30 Gram Stain - Final Complete Sputum Endotracheal 04/29/17 15:30 Sputum Culture - Final Complete Acinetobacter Baumannii/Haemol Pseudomonas Aeruginosa Procedures * 04/16/17 -tracheostomy placement * 04/16/17 -endotracheal extubation * 04/15/17 - PEG tube placed. * 03/25/17 -Endotracheal intubation. . Assessment and Plan Disease Oriented Problem List: (1) Sepsis due to Acinetobacter Comment: Sepsis syndrome secondary to pneumonia -MDR Acinetobacter (2) Acute hypoxemic respiratory failure Comment: Remains intubated on mechanical ventilation. 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 Now status post tracheostomy on 04/16/17. Remains on mechanical ventilation. (2) Pain 0-10 Scale: 0 Comment: Prolonged hospitalization/bedrest, muscular weakness and atrophy. (3) Debility 0-10 Scale: Unable to quantify Comment: Secondary to acute illness and prolonged hospitalization. Pertinent Non-Medical Issues Psychosocial: 61-year-old with long-standing history of alcohol use and abuse, 1 daughter who is incarcerated in the [facility]. Spiritual: No reported. Legal: Daughter Tamanna is, per [facility] care decision proxy. She is currently incarcerated at [facility]. They are permitting her to participate in decisions at this time. Ethical issues impacting care: As stated above. . Important Contacts * Tamanna Sandhu, daughter/ HCP: Margot Nolen is, per [facility] care decision proxy. . Now in [facility] (#[phone]). Facilitation of conversations with Tamanna can be arranged through booking (#[phone]) in emergency situations to address goals of care.Ask for a Pandora on staff as shifts rotate throughout the week. * Guillermo Roberts, daughter friend: [phone] (cell)- has frequent contact w Amie - has been very helpful. Prognosis Prognosis: Poor prognosis for meaningful recovery. . Code Status: Full Code Plan * HEALTHCARE DECISION-MAKING: Patient is , according to [place] statutes , health care proxy decision making falls to his only daughter, Tamanna. [facility] (#[phone]). Facilitation of conversations with Tamanna can be arranged through booking (#[phone]) in emergency situations to address goals of care. Ask for a Pandora on staff as shifts rotate throughout the week. * FULL CODE * GOALS OF CARE: As per patient and daughter, goal of therapy is to continue with aggressive management to include trach, PEG and IV abx. Ongoing discharge planning, will likely need long-term placement. * SYMPTOMS: =Dyspnea: secondary to respiratory failure. Remains on mechanical ventilation via tracheostomy. Tolerating CPAP trials. =Debility: Secondary to burden of disease, acute illness and prolonged hospitalization. =Pain: secondary to prolonged hospitalization, tubes and bedrest. Oxycodone available as needed. * Palliative care spoke with patient's daughter on 04/25/17 to provide update. No new acute events to report. * Case discussed with bedside RN, Jack. * Palliative care contact information has been provided to patient's daughter and her boyfriend. * Palliative care will continue to follow further clarifications of goals of care as patient's clinical course evolves. . Time Spent Total Floor Time (mins): 26 (Total time to include review of med records, phys exam and case discussion with bedside RN) >50% Counseling/Coord of Care: Yes Attestation To help prompt me to consider important information that might be impacting today's encounter and assessment, information from prior notes written by myself or my colleagues may have been "brought forward" into today's note. My signature on this note, however, is an attestation that I personally performed the exam, history, and/or decision-making noted today, and, unless otherwise indicated, the interactions with patient, family, and staff as well as the review of records all occurred today. I also attest that the listed assessment and stated plan reflect my best clinical judgment today based on the combination of historical information, prior notes, and today's exam/ interactions. When time spent is documented, it refers only to time spent today by the signer, or if indicated, combined time spent today by collaborating physician/nurse practitioner. Melissa Mcclure May 02, 2017 13:34
[2017-05-02 17:49] LABS: AUTOMATED NEUTROPHIL # 8.6 TH/MM3 (1.8-7.7); BASOPHIL # 0.1 TH/MM3 (0-0.2); BASOPHIL % 0.7 % (0.0-2.0); EOSINOPHIL # 0.2 TH/MM3 (0-0.4); EOSINOPHIL % 1.6 % (0.0-4.0); HEMATOCRIT 26.6 % (39.0-51.0); HEMO FLAGS DIFF FINAL; LYMPH % 16.2 % (9.0-44.0); LYMPHOCYTE # 1.8 TH/MM3 (1.0-4.8); MEAN CELL VOLUME 99.3 FL (80.0-100.0); MEAN CORPUSCULAR HEMOGLOBIN 32.4 PG (27.0-34.0); MEAN CORPUSCULAR HGB CONC 32.7 % (32.0-36.0); MONO % 5.1 % (0.0-8.0); NEUT % 76.4 % (16.0-70.0); PLATELET COUNT 163 TH/MM3 (150-450); RED BLOOD COUNT 2.67 MIL/MM3 (4.50-5.90); RED CELL DISTRIBUTION WIDTH 15.2 % (11.6-17.2); WHITE BLOOD COUNT 11.3 TH/MM3 (4.0-11.0)
[2017-05-02 18:47] LABS: ALKALINE PHOSPHATASE 421 U/L (45-117); ALT (GPT) 69 U/L (12-78); ANION GAP 5 MEQ/L (5-15); AST (GOT) 146 U/L (15-37); BICARBONATE 27.7 MEQ/L (21.0-32.0); BLOOD UREA NITROGEN 11 MG/DL (7-18); CHLORIDE 106 MEQ/L (98-107); GLOMERULAR FILTRATION RATE 397 ML/MIN (>89); MAGNESIUM 1.7 MG/DL (1.5-2.5); POTASSIUM 4.4 MEQ/L (3.5-5.1); SODIUM (NA) 139 MEQ/L (136-145); TOTAL BILIRUBIN ADULT 1.2 MG/DL (0.2-1.0)
[2017-05-03] VITALS (23 sets, daily range): BP systolic 73–134; BP diastolic 39–92; PULSE 88–116; RESP 16–30; TEMP 98.4–99.7; O2SAT 83–100
[2017-05-03] MEDS: ONDANSETRON HCL 4 MG/2 ML VIAL IV PRN ×2 (01:09→20:07)
[2017-05-03] MEDS: MIDODRINE 5 MG TAB PO SCH ×3 (06:34→20:46)
[2017-05-03] MEDS: CHLORHEXIDINE 0.12% (ORAL KIT) 15 ML CUP MT SCH ×2 (07:02→20:06)
[2017-05-03] MEDS: RESP: COLISTIN 150 MG VIAL NEB SCH ×2 (08:07→22:23)
[2017-05-03] MEDS: SODIUM CHLORIDE 0.9% FLUSH 10 ML FLUSH IVF SCH (09:00)
[2017-05-03] MEDS: SODIUM HYPOCHLORITE 0.125% 500 ML BTL TOPICAL SCH (09:00)
[2017-05-03] MEDS: NYSTATIN 100,000 U/GM PWD 15 GM BTL TOPICAL SCH ×2 (09:00→20:46)
[2017-05-03] MEDS: THIAMINE HCL 100 MG TAB PO SCH (09:00)
[2017-05-03] MEDS: INSULIN NovoLIN REGULAR SUPPLEMENTAL SCALE SQ SCH ×2 (09:00→20:07)
[2017-05-03] MEDS: SODIUM CHLORIDE 0.9% FLUSH 10 ML FLUSH IV FLUSH SCH ×2 (09:00→20:45)
[2017-05-03] MEDS: LACTOBACILLUS ACIDOPHILUS TAB PO SCH ×3 (09:09→17:41)
[2017-05-03] MEDS: LACTULOSE SYRUP 20 GM/30 ML CUP PO SCH ×2 (09:09→20:44)
[2017-05-03] MEDS: MUPIROCIN 2% OINT 1 APPLIC/GM SYR EACH NARE SCH ×2 (09:10→20:44)
[2017-05-03] MEDS: RIFAXIMIN 550 MG TAB PO SCH ×2 (09:10→20:44)
[2017-05-03] MEDS: levETIRAcetam 500 MG/5 ML UDC NG SCH ×2 (09:10→20:44)
[2017-05-03] MEDS: LANSOPRAZOLE SOLUTAB 30 MG TAB NG SCH (09:10)
[2017-05-03] MEDS: HEPARIN SODIUM - SQ 10,000 UNITS/ML VIAL SQ SCH ×2 (09:10→20:44)
[2017-05-03] MEDS: ARTIFICIAL TEARS OPTH SOLN 15 ML BTL EACH EYE SCH ×3 (09:11→15:30)
--- NOTE | 2017-05-03 10:29 | HHI.CCPN ---
Subjective Remarks/Hospital Course This is a 61-year-old male with a past history of alcohol abuse and a prior admission in 2015 for severe life-threatening hyponatremia at that time with a serum sodium of 98. He presents today with what he states is a 13 day history of worsening fatigue and weakness. He is very altered and is very difficult to understand the patient. What I can understand from him, is that at some point during these 13 days he has fallen and hit his face. Otherwise he states he lays on the couch, and has not gotten not much. He states he drinks 1 beer in the morning, and 1 beer in the afternoon. He does endorse taking some Xanax to help him sleep. He denies other drug use. He denies chest pain, shortness of breath, fever, chills, nausea, vomiting, abdominal pain. It is very difficult to get him to answer anymore questions about his medical history. His speech is very slurred and he is trying to talk about how he misses his daughter. Emergency department he was found to have a serum sodium of 99, a bilirubin of 8.9, lactate of 9.8, ammonia of 60, CK of 7000, elevated troponin of 4.9 with a normal MB ratio, creatinine 1.5, serum bicarbonate of 13. His white count is 12 , platelets 112. INR 1.9. His MELD calculates at 26. 4/2: Sodium level rapidly corrected overnight, likely secondary to appropriate correction of severe life-threatening dehydration. NS fluids changed to 1/2NS and correction slowed down significantly. sodium up to 130 this AM. CK downtrending. however, patient remains severely hypotensive requiring Levophed to maintain a map > 65 mmHg. This AM, serum K 1.6 (confirmed). started replacement with 200meq KCl and recheck K. 03/04: persists in vasoplegic distributive shock. afebrile. no evidence of infection. wbc downtrending. persists with severe life-threatening electrolyte derangements. passed swallow eval for nectar thick liquids. sodium stable at 131. ck downtrending. 03/05: persists in distributive shock. echo yesterday with EF 30%, globally decreased function. milrinone added yesterday with improvement in vasopressor requirement. still with multiple electrolyte abnormalities despite very aggressive replacement. very poor appetite. sodium stable at 131, which appears to be around baseline for him, looking back at prior records. also became agitated and delirious yesterday, likely secondary to etoh withdraw. started on Ativan and Librium. 03/06: electrolyte derangements persist. placed on continuous NaPhos infusion x 24h due to severe life-threatening hypophosphatemia. serial K, phos checks. weaning off levophed, milrinone persists. still poor appetite. sodium jumped from 132 to 139, but no significant mental status change, and we did not increase sodium load. 03/07: still requiring high electrolyte replacement. milrinone weaned to 0.375 mcg /kg/min overnight. still doing well with that. delirium persists. 03/08 Remains on milrinone. Electrolyte improving. Remains very lethargic, intermittently follows commands 03/09: Continues to be lethargic but wakes up follows some commands. Remains on milrinone will DC today. T max 100.1, urine output adequate sodium is 143 03/10: More awake alert, ate 50% of break fast. Will DC Dobhoff. Discontinue arterial and central lines. Delirium also improved, remains weak 03/11: doing much better this morning. no complaints. still with poor appetite. electrolytes improved. 03/20: We consulted for respiratory failure. Patient was last seen in room 1415 CMP receiving oral cares and became acutely hypoxic saturations 82% with coarse breath sounds. Halicat called. Patient was placed on a Venturi mask 50 % with desaturations to the mid 90s. He received Solu-Medrol 20 mg IV 1, Lasix 40 mg IV 1 and was transferred IM [facility] 521. Hemodynamically stable. Poor mentation 03/25: Reconsulted due to respiratory failure. Patient with gurgling/ transmitted upper airway sounds. Respiration the 50s. Decision made to orotracheally intubate. Noted to have been febrile with increased O2 course over the past 48 hours. 03/26: Afebrile. Requiring Nimbex drip for ventilator synchrony. Decreased urine output noted. Hemoglobin decreased likely dilutional. Tolerating tube feeding. Electrolytes been replaced. 03/27: Tmax 100.9. Currently 97.2. +6 L past 24 hours. Hemoglobin 8 transfuse overnight. Potassium 3. We'll discontinue Nimbex drip for vent synchrony today. 03/28: Afebrile. Negative fluid balance past 24 hours. Hemoglobin currently 9. Potassium 3.0. Currently on sedation vacation positive gag and otherwise unresponsive. 03/29: Tmax 103. Currently afebrile. Not tolerating tube feeds. Remains on Kiran-Synephrine. Did not tolerate sedation vacation back on Versed at 5 mg an hour fentanyl drip at 100 mcg an hour. One bowel movement. 03/30 Tube feeds remain on hold. On neosynephrine 40 mcg/min, RN states she has been weaning. Having BMs. On Versed 8 mg/hr and fentanyl 100 mcg/hr. 03/31 Off versed. Remains on fentanyl 100 mcg/hr. Having hiccups. Still on neosynephrine 40 mcg/min. Tolerating trickle feeds. Had 2 bowel movements 04/01: no meaningful change. still requires fentanyl for sedation. still on low- dose vasopressors. 04/02: no changes. still on levo @ 7 mcg/min. unable to wean off fentanyl due to tachycardia and tachypnea. 04/03: Off all sedation. On low-dose norepinephrine. Essentially unresponsive on the ventilator. Plan for likely withdrawal of care tomorrow 04/04: Off all sedation. Off all vasopressors. According to overnight RN was following commands. Will open eyes but not following commands this AM. 04/05 No events overnight. Afebrile On no sedation. 04/06: Resting comfortably in bed. Eyes are open. Moving head back and forth continuously. Weakly following commands with his upper and lower extremities. 04/07: Low-grade temperatures overnight. 99.8. Eyes are open. Moving back and forth. Positive BM. Continues to be following commands. 04/08 Patient remains intubated on no sedation awake and follows commands. Tmax 100.8 04/09 Patient remains intubated, tolerated CPAP all day and had good responses in UO with Bumex yesterday. Afebrile. 04/10: Tmax 99.1. Went back on set rate ventilation yesterday. Will attempt PSV trials throughout the day with goal to attempt extubation tomorrow. 04/11: Tmax 100.2. Currently 100.1. Did not tolerate weaning parameters with NIF -9 and unacceptable RSBI. Patient is arousable and follows commands eyes open 04/12: Omayra care reports tonic-clonic seizure activity this AM. Heart rate in the 140s during episode with violent shaking. On examination, patient's eyes are open and at baseline except currently not following commands. 04/13: had 2 seizures this morning, both resolved without medication interventions. Dr. Fabrizio navas'd at bedside earlier and ordered Cerebyx load. no other changes. plan for trach/peg next week 04/14: still having breakthrough seizures on repeat EEG despite Cerebyx and Keppra. plan for PEG tomorrow. 04/15 No events overnight. Remains intubated. On no sedation. For PEG tube placement today. T:101.2 last night. 04/16 Patient remains intubated. For trach this afternoon. s/p PEG tube placement yesterday. Spiked fever with T:102.5 last night. 04/17 Patient s/p trach yesterday. T: 100.3 at midnight. 04/18 Continues to have low-grade fever. No change in mental status. Sputum Pseudomonas pansensitive. No seizures reported in the last 24 hours 04/19: No fever reported. Slightly more awake and was commands on right upper extremity by squeezing hands very weakly. On CPAP 15/04. Slightly tachypneic 04/20: WBC count slightly elevated today, tachypnea on CPAP. Continues to follow commands weakly on right hand. Intermittently about to wiggle toes. Slight increase in white count to 13,000. Tmax 100.9 ID following 04/21: Tolerated only 1 hour CPAP yesterday. Unable to reduce pressure support. Tmax 99.9 04/22: Remains on mechanical ventilation via tracheostomy. Tolerated C Pap trial for 1 hour yesterday. 04/23: Remains on mechanical ventilation via tracheostomy. Daily C Pap trials ongoing. Tolerating tube feeds. 04/24: Afebrile. Copious edema//swelling extremities. Decreased urine output noted. Remains on mechanical ventilation via trach acid. Daily C Pap trials ongoing. Positive BM. 04/25: Tmax 99.5. With copious edema. Will give 1 additional dose of Bumex today after albumin. Remains on ventilator via tracheostomy. Ongoing CPAP trials. 04/26: Tmax 100. Diuresed yesterday. Remains on ventilator via tracheostomy. Positive BM. 04/27: Diuresed well yesterday. Tolerating CPAP trials 4 hours today. Positive BM. Awake and interactive. Subjective: 04/28: Decreased urine output noted today. Low-grade temperature 99.3. Tolerating CPAP trials for the past 24 hours currently at 18/5 at 40%. 04/29: Awake and alert. Tolerating C Pap trials. 04/30: Drowsy, easily arousable. Tolerating C Pap trials. 05/01: Drowsy, arousable, tolerating C Pap trials. 05/02: Awake and alert. On mechanical ventilation via tracheostomy. Daily C Pap trials ongoing. 05/03: Awake, alert. On mechanical ventilation via tracheostomy. Tolerating C Pap trials. Had episode of emesis last night. Objective Vital Signs Date Time Temp Pulse Resp B/P Pulse Ox O2 Delivery O2 Flow Rate FiO2 05/03/17 08:09 97 30 05/03/17 08:00 99.2 101 16 86/49 Intake and Output 05/02/17 05/02/17 05/03/17 08:00 16:00 00:00 Intake Total 659 ml 520 ml 613 ml Output Total 650 ml 650 ml 600 ml Balance 9 ml -130 ml 13 ml Result Diagram: 05/02/17 1740 05/02/17 1740 Imaging Last Impressions Chest X-Ray 04/28/17 0600 Signed Impressions: Service Date/Time: Friday, April 28, 2017 04:27 - CONCLUSION: 1. Bilateral basilar and perihilar air space disease slightly improved on the right. No significant effusion. Tracheostomy in satisfactory position Miguel Looney MD Abdomen/Pelvis CT 04/16/17 0000 Signed Impressions: Service Date/Time: Sunday, April 16, 2017 11:26 - CONCLUSION: 1. Cirrhosis and splenomegaly. 2. Ascites 3. Anasarca 4. No pancreas mass identified Yinka Harman MD Liver Ultrasound 04/15/17 0000 Signed Impressions: Service Date/Time: Saturday, April 15, 2017 09:24 - CONCLUSION: 1. Abnormal appearance of the pancreas with a nonspecific hypoechoic area involving the posterior part of the pancreas along the head and body region. Recommend CT scan of the abdomen with oral and IV contrast further evaluation. 2. Fatty infiltration throughout the liver. 3. There is thickening of the gallbladder wall at 6 mm. This is suggestive of chronic gallbladder disease. 4. Small amount of free fluid adjacent to the liver and spleen in the upper abdomen.. 5. Right-sided pleural effusion. Víctor Rosas MD Abdomen X-Ray 04/13/17 0000 Signed Impressions: Service Date/Time: Thursday, April 13, 2017 10:36 - CONCLUSION: Dobbhoff tip in distal stomach. No evidence of obstruction. Logan Morgan MD Head CT 04/12/17 0000 Signed Impressions: Service Date/Time: Wednesday, April 12, 2017 21:30 - CONCLUSION: Pontine encephalomalacia. Left mastoiditis. Casper Alva MD Head Magnetic Resonance Angiography 03/28/17 0000 Signed Impressions: Service Date/Time: March 17:22 - CONCLUSION: Unremarkable examination. KShiv Castillo MD Brain MRI 03/28/17 0000 Signed Impressions: Service Date/Time: March 17:22 - CONCLUSION: 1. 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 Small subacute ischemic bilateral thalamic infarcts. 2. There has been no significant change when compared to the prior exam. Yinka Harman MD Lower Extremity Ultrasound 03/25/17 0000 Signed Impressions: Service Date/Time: Saturday, March 25, 2017 22:17 - CONCLUSION: No evidence of DVT. Víctor Rosas MD CT Angiography 03/21/17 0000 Signed Impressions: Service Date/Time: March 00:33 - CONCLUSION: No evidence of pulmonary embolism is identified. Mild atelectasis left lung base. Fluid or phlegm within the trachea. Milo Muhammad MD Abdomen Ultrasound 03/20/17 0000 Signed Impressions: Service Date/Time: Monday, March 20, 2017 11:38 - CONCLUSION: 1. Hepatosplenomegaly without focal lesion. 2. Probable sludge within the lumen of the gallbladder. No intrahepatic duct. Cheo Martínez MD Shoulder X-Ray 03/02/17 1404 Signed Impressions: Service Date/Time: Thursday, March 02, 2017 15:18 - CONCLUSION: No evidence of recent bony injury. Deformity of the lateral left clavicle suggests old healed trauma. Cheo Martínez MD Maxillofacial CT 03/02/17 1342 Signed Impressions: Service Date/Time: Thursday, March 02, 2017 14:52 - CONCLUSION: Negative CT of the facial bones. Cheo Martínez MD Chest CT 03/02/17 1342 Signed Impressions: Service Date/Time: Thursday, March 02, 2017 15:04 - CONCLUSION: 1. Abnormal appearance of the lateral left clavicle suggesting a combination of acute and chronic bony injury. Fracture lucencies without bridging callus is seen the region of the coracoid process. 2. The lungs are clear. No evidence of pneumothorax. 3. Moderate size hiatus hernia. Cheo Martínez MD Cervical Spine CT 03/02/17 1342 Signed Impressions: Service Date/Time: Thursday, March 02, 2017 14:52 - CONCLUSION: Negative CT cervical spine. Cheo Martínez MD Objective Remarks GENERAL: 61-year-old chronically ill appearing male, critically ill. HEENT: Healing abrasion left side scalp. TIMOTHY. Scleral icterus. Poor dentition. NECK: Trachea Midline, Trach without bleed RESP: Coarse breath sounds bilaterally. Occasional and extremities. CARDIOVASCULAR: Tachycardia, RR. S1, S2. No S4. ABDOMEN: Slightly distended but soft, bowel sounds present, tolerating tube feeds. G-tube is clear dry and intact : Johns in place with conrad urine output. mild/moderate scrotal edema. MUSCULOSKELETAL: No obvious deformity. 1+ to 2+ edema all extremities NEUROLOGICAL: Awake and alert, following commands. Grade 3 power in upper extremities distally. Can wiggle his toes. A/P Assessment and Plan Neuro/Psych: Osmotic demyelination syndrome Acute toxic metabolic encephalopathy secondary to hypercarbic respiratory failure Alcohol dependence Seizures (History of EtOH induced seizure withdrawal) Chronic benzodiazepine use Bilateral thalamic CVA Off all sedation. oxycodone 5 mg every 4 hours as needed for pain. Ativan 0.5 mg PRN for sz MRI 03/21 - findings consistent with Osmotic demyelination syndrome. ODS most likely from rapid correction of Na, with underlying alcoholism. ( Patient was profoundly hypotensive in shock requiring multiple pressors at that time) MRI brain 03/28 revealed subacute bilateral thalamic lacunar infarcts, ODS. CT head 03/05 revealed no acute intracranial findings Continue thiamine 100 mg daily Seen by neurology/Dr. Mazariegos. EEG previously with persistent. continue Keppra 1000mg BID Respiratory: Acute hypoxemic hypercapnic respiratory failure PRVC 18/550/1.2/. Continue with vent support keep sat >92% Spontaneous breathing trials daily. Ventilator bundle, s/p trach 04/16 Bronchodilator therapy every 6 hours and as needed SBT daily as pablo. Pulm toilet, trach care. Cardiovascular: Chronic Systolic heart failure Echocardiogram 03/04 revealed EF 35-40%. Mild MR. Left atrium dilated. JANE 33 mmHg s/p hydrocortisone. Continue midodrine 10 mg 3 times Monitor HR and BP keep MAP>65mmHg Renal/FEN: Acute Kidney Injury Rhabdomyolysis- resolved ODS-see neuro Hypernatremia - resolving Monitor renal function, I/O's, electrolytes replacement per protocol. DC D5/12/03 NS 04/21 GI: EtOH cirrhosis Hyperammonemia Hiatal hernia Sigmoid diverticulosis Hypoalbuminemia Continue tube feeds via PEG tube-(Jevity 1.5 with goal rate 60ml/hr) s/p PEG tube placement 04/15 CT abdomen/pelvis 04/16: Cirrhosis of liver, splenomegaly, anasarca, ascites(mild ) On Xifaxan 550 twice a day/lactulose 30 twice a day. US Liver 04/15: Abnormal appearance of the pancreas with a nonspecific hypoechoic area involving the posterior part of the pancreas along the head and body region. Fatty infiltration throughout the liver. There is thickening of the gallbladder wall at 6 mm. Suggestive of chronic gallbladder disease. Small amount of free fluid adjacent to the liver and spleen in the upper abdomen. Right-sided pleural effusion. 03/20 Ultrasound liver-hepatosplenomegaly. Sludge in gallbladder On IV Protonix switched to Prevacid Heme: Leukocytosis Macrocytic anemia - now normocytic Monitor CBC. No indications for transfusion of blood proximally postop B12 1452, Folate 15.2. TSH 0.8. ID: Aspiration pneumonia, PSAE in sputum Escherichia coli UTI 03/11 - completed therapy Acinetobacter pneumonia Pertinent cultures 04/29 - MDR Acinetobacter 04/26 - urine -C. albicans 04/15 Sputum cx: PSAE 04/15 urine cx: Klebsiella 04/15 BC: NGTD 04/12 BC: NGTD 04/08 - blood cultures 2 - no growth 04/08 - sputum - no growth 04/05 - urine -C GLABRATA AND C. ALBICANS 03/29 - blood cultures 2 - NGTD 03/25 - sputum --Acinetobacter. 03/25 - urine - NGTD 03/25 - blood cultures 2 -no growth 03/22 - urine - no growth 03/22 - blood cultures 2 - negative 03/20 - blood cultures 2 - no growth 03/11 - urine - Escherichia coli 03/02 - blood cultures 2 - no growth Followed by Dr. Lisa/ID. Changed Zosyn to cefepime 04/17 Levaquin started 04/20/17 by ID. Complete therapy by 04/30/17 Started Diflucan 100 daily 04/26 for C. albicans funguria - to complete 7 days of therapy Off Flagyl po 03/24 Procalcitonin level: 0.40, C-diff PCR negative 04/10 Colistin nebs for MDRO Acinetobacter in sputum 04/29 Endocrine: Hyperglycemia of critical illness History of hypothyroidism SSI with Accu-Cheks every 4 hours to maintain euglycemia MSK: History of old left clavicle fracture PT/OT evaluate and treat Access Peripheral IV. Prophylaxis: GI -Prevacid DVT - SCD/heparin subcutaneous Palliative care is following code status changed to full code per daughter's request. Tamanna Sandhu, daughter/ HCP: from [facility] [phone] now confirmed transferred to [facility] in [place] facility ([phone]) Code status -full code CM working on LTAC placement Level 2 Elliott Rock MD May 03, 2017 10:29
--- NOTE | 2017-05-03 15:01 | HHI.IDPN ---
Subjective Subjective Remarks Notes reviewed Temps ok Tolerating CPAP trials Sputum now with Acinetobacter again, and PSAE Tolerating TF Not SOB He is awake and responding Per CM, no insurance covergae for LTAC WBC down to normal CXR stable, no new infiltrates Antibiotics Colistin nebs fluconazole - finished 05/02 Lines PIV Past Medical History ETOHism Allergies: Coded Allergies: PEANUTS (Unverified Allergy, Severe, 03/02/17) *MDRO Multi-Drug Resistant Organism (Verified Adverse Reaction, Unknown, ) MRSA PCR screen POSITIVE - 03/02/17 MDR Acinetobacter (sputum) - 03/25/17 & 04/29/17 Objective . Vital Signs Date Time Temp Pulse Resp B/P Pulse Ox O2 Delivery O2 Flow Rate FiO2 05/03/17 14:00 88 05/03/17 12:00 99.4 93 25 111/70 100 05/03/17 12:00 30 05/03/17 12:00 88 05/03/17 11:05 96 30 05/03/17 11:00 101 26 83 05/03/17 10:00 96 05/03/17 10:00 100 22 114/75 96 05/03/17 09:00 101 24 73/39 97 05/03/17 08:09 97 30 05/03/17 08:00 99.2 101 16 86/49 97 05/03/17 08:00 104 05/03/17 08:00 30 05/03/17 07:00 109 18 96 05/03/17 06:00 107 05/03/17 04:13 98 30 05/03/17 04:00 99.7 109 18 105/82 98 05/03/17 04:00 30 05/03/17 04:00 109 05/03/17 02:00 113 05/03/17 01:08 100 30 05/03/17 00:00 98.4 116 30 134/92 95 05/03/17 00:00 116 05/03/17 00:00 30 05/02/17 22:12 93 30 05/02/17 22:00 108 05/02/17 20:22 95 30 05/02/17 20:00 30 05/02/17 20:00 98.8 96 24 132/84 95 05/02/17 20:00 96 05/02/17 18:00 95 05/02/17 16:10 99 30 05/02/17 16:00 30 05/02/17 16:00 99.1 85 23 122/75 96 05/02/17 16:00 85 05/02/17 05/02/17 05/03/17 15:00 23:00 07:00 Intake Total 520 ml 613 ml 345 ml Output Total 650 ml 600 ml 270 ml Balance -130 ml 13 ml 75 ml IV Total 5 ml Tube Feeding 395 ml 513 ml 315 ml Other 120 ml 100 ml 30 ml Output Urine Total 250 ml 300 ml 150 ml Stool Total 400 ml 300 ml 120 ml . Laboratory Tests Test 05/02/17 17:40 White Blood Count 11.3 TH/MM3 Red Blood Count 2.67 MIL/MM3 Hemoglobin 8.7 GM/DL Hematocrit 26.6 % Mean Corpuscular Volume 99.3 FL Mean Corpuscular Hemoglobin 32.4 PG Mean Corpuscular Hemoglobin 32.7 % Concent Red Cell Distribution Width 15.2 % Platelet Count 163 TH/MM3 Mean Platelet Volume 8.3 FL Neutrophils (%) (Auto) 76.4 % Lymphocytes (%) (Auto) 16.2 % Monocytes (%) (Auto) 5.1 % Eosinophils (%) (Auto) 1.6 % Basophils (%) (Auto) 0.7 % Neutrophils # (Auto) 8.6 TH/MM3 Lymphocytes # (Auto) 1.8 TH/MM3 Monocytes # (Auto) 0.6 TH/MM3 Eosinophils # (Auto) 0.2 TH/MM3 Basophils # (Auto) 0.1 TH/MM3 CBC Comment DIFF FINAL Differential Comment Laboratory Tests Test 05/02/17 17:40 Sodium Level 139 MEQ/L Potassium Level 4.4 MEQ/L Chloride Level 106 MEQ/L Carbon Dioxide Level 27.7 MEQ/L Anion Gap 5 MEQ/L Blood Urea Nitrogen 11 MG/DL Creatinine 0.24 MG/DL Estimat Glomerular Filtration 397 ML/MIN Rate Random Glucose 117 MG/DL Calcium Level 8.5 MG/DL Phosphorus Level 3.4 MG/DL Magnesium Level 1.7 MG/DL Total Bilirubin 1.2 MG/DL Aspartate Amino Transf 146 U/L (AST/SGOT) Alanine Aminotransferase 69 U/L (ALT/SGPT) Alkaline Phosphatase 421 U/L Total Protein 6.2 GM/DL Albumin 2.2 GM/DL Imaging Last Impressions Chest X-Ray 04/29/17 0600 Signed Impressions: Service Date/Time: Saturday, April 29, 2017 06:19 - CONCLUSION: No significant change Casper Alva MD Abdomen/Pelvis CT 04/16/17 0000 Signed Impressions: Service Date/Time: Sunday, April 16, 2017 11:26 - CONCLUSION: 1. Cirrhosis and splenomegaly. 2. Ascites 3. Anasarca 4. No pancreas mass identified Yinka Harman MD Liver Ultrasound 04/15/17 0000 Signed Impressions: Service Date/Time: Saturday, April 15, 2017 09:24 - CONCLUSION: 1. Abnormal appearance of the pancreas with a nonspecific hypoechoic area involving the posterior part of the pancreas along the head and body region. Recommend CT scan of the abdomen with oral and IV contrast further evaluation. 2. Fatty infiltration throughout the liver. 3. There is thickening of the gallbladder wall at 6 mm. This is suggestive of chronic gallbladder disease. 4. Small amount of free fluid adjacent to the liver and spleen in the upper abdomen.. 5. Right-sided pleural effusion. Víctor Rosas MD Abdomen X-Ray 04/13/17 0000 Signed Impressions: Service Date/Time: Thursday, April 13, 2017 10:36 - CONCLUSION: Dobbhoff tip in distal stomach. No evidence of obstruction. Logan Morgan MD Head CT 04/12/17 0000 Signed Impressions: Service Date/Time: Wednesday, April 12, 2017 21:30 - CONCLUSION: Pontine encephalomalacia. Left mastoiditis. Casper Alva MD Head Magnetic Resonance Angiography 03/28/17 0000 Signed Impressions: Service Date/Time: March 17:22 - CONCLUSION: Unremarkable examination. Bety Castillo MD Brain MRI 03/28/17 0000 Signed Impressions: Service Date/Time: March 17:22 - CONCLUSION: 1. 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 Small subacute ischemic bilateral thalamic infarcts. 2. There has been no significant change when compared to the prior exam. Yinka Harman MD Lower Extremity Ultrasound 03/25/17 0000 Signed Impressions: Service Date/Time: Saturday, March 25, 2017 22:17 - CONCLUSION: No evidence of DVT. Víctor Rosas MD CT Angiography 03/21/17 0000 Signed Impressions: Service Date/Time: March 00:33 - CONCLUSION: No evidence of pulmonary embolism is identified. Mild atelectasis left lung base. Fluid or phlegm within the trachea. Milo Muhammad MD Abdomen Ultrasound 03/20/17 0000 Signed Impressions: Service Date/Time: Monday, March 20, 2017 11:38 - CONCLUSION: 1. Hepatosplenomegaly without focal lesion. 2. Probable sludge within the lumen of the gallbladder. No intrahepatic duct. Cheo Martínez MD Shoulder X-Ray 03/02/17 1404 Signed Impressions: Service Date/Time: Thursday, March 02, 2017 15:18 - CONCLUSION: No evidence of recent bony injury. Deformity of the lateral left clavicle suggests old healed trauma. Cheo Martínez MD Maxillofacial CT 03/02/17 1342 Signed Impressions: Service Date/Time: Thursday, March 02, 2017 14:52 - CONCLUSION: Negative CT of the facial bones. Cheo Martínez MD Chest CT 03/02/17 1342 Signed Impressions: Service Date/Time: Thursday, March 02, 2017 15:04 - CONCLUSION: 1. Abnormal appearance of the lateral left clavicle suggesting a combination of acute and chronic bony injury. Fracture lucencies without bridging callus is seen the region of the coracoid process. 2. The lungs are clear. No evidence of pneumothorax. 3. Moderate size hiatus hernia. Cheo Martínez MD Cervical Spine CT 03/02/17 1342 Signed Impressions: Service Date/Time: Thursday, March 02, 2017 14:52 - CONCLUSION: Negative CT cervical spine. Cheo Martínez MD Physical Exam GENERAL: Awake, and interacting, NAD on CPAP SKIN: Warm and dry. HEENT: Pupils equal round and reactive. Poor dentition. A lot of oral secretions NECK: Supple, nontender, no meningeal signs. Previous line site ok. Trach site ok CARDIOVASCULAR: Regular rate and rhythm without murmurs, gallops, or rubs. RESPIRATORY: Scattered rhonchi GASTROINTESTINAL: Abdomen mildly distended, bowel sounds are present and normoactive, not tender. PEG site ok MUSCULOSKELETAL: Lower extremities without clubbing, cyanosis. Pedal edema better NEUROLOGICAL: Awake and focusing; trying to communicate : Johns cath in place, urine looks clear Scrotum edematous LINE: PIV no evidence of infection Assessment & Plan Remarks IMPRESSION Sepsis syndrome, due to PNA, improving - on vent - has MDR Acinetobacter, S/P RX MDR Acinetobacter PNA - S/P Rx Recurrent fevers, etiology? Resolved - intermittent - has UTI - CXR stable infiltrates; atelectasis - ?drug fever (anticonvulsants) Kleb UTI. S/P Rx New VAP, has PSAE. S/P Rx Septic shock, BP better, off pressors - resolved Known ETOH abuse Encephalopathy - sepsis, ETOH, CPM Respiratory failure - S/P trach - doing CPAP trials Diarrhea, C diff negative, volume decreased Seizures, controlled - ?due to CPM - per records had ETOH withdrawal SZ Candiduria Recurrent GNR in sputum, likely tracheobronchitis RECOMMENDATION Continue Colistin nebs Weaning as tolerated per CCM Per CM no insurance coverage for LTAC He seems clinically stable from ID standpoint I will be available prn Please call if needed Umm Lisa MD May 03, 2017 15:01
[2017-05-03] MEDS: RESP: ALBUTEROL 2.5 MG/3 ML NEB (PRN) INH (21:12)
[2017-05-04] VITALS (18 sets, daily range): BP systolic 96–129; BP diastolic 60–77; PULSE 79–97; RESP 20–26; TEMP 98–99.1; O2SAT 95–100
[2017-05-04] MEDS: ONDANSETRON HCL 4 MG/2 ML VIAL IV PRN (04:29)
[2017-05-04] MEDS: MIDODRINE 5 MG TAB PO SCH ×3 (04:46→21:47)
[2017-05-04] MEDS: ACETAMINOPHEN 325 MG TAB PO PRN (04:47)
[2017-05-04] MEDS: RESP: COLISTIN 150 MG VIAL NEB SCH ×2 (07:32→19:52)
[2017-05-04] MEDS: RESP: ALBUTEROL 2.5 MG/3 ML NEB (PRN) INH ×2 (07:32→20:32)
[2017-05-04] MEDS: CHLORHEXIDINE 0.12% (ORAL KIT) 15 ML CUP MT SCH ×2 (08:00→20:09)
[2017-05-04] MEDS: LACTOBACILLUS ACIDOPHILUS TAB PO SCH ×3 (09:00→18:00)
[2017-05-04] MEDS: INSULIN NovoLIN REGULAR SUPPLEMENTAL SCALE SQ SCH ×2 (09:00→20:10)
[2017-05-04] MEDS: LACTULOSE SYRUP 20 GM/30 ML CUP PO SCH ×2 (09:00→20:08)
[2017-05-04] MEDS: levETIRAcetam 500 MG/5 ML UDC NG SCH ×2 (09:54→20:08)
[2017-05-04] MEDS: RIFAXIMIN 550 MG TAB PO SCH ×2 (09:55→20:09)
[2017-05-04] MEDS: LANSOPRAZOLE SOLUTAB 30 MG TAB NG SCH (09:55)
[2017-05-04] MEDS: MUPIROCIN 2% OINT 1 APPLIC/GM SYR EACH NARE SCH ×2 (09:55→20:09)
[2017-05-04] MEDS: THIAMINE HCL 100 MG TAB PO SCH (09:55)
[2017-05-04] MEDS: HEPARIN SODIUM - SQ 10,000 UNITS/ML VIAL SQ SCH ×2 (09:56→20:08)
--- NOTE | 2017-05-04 11:40 | HHI.CCPN ---
Subjective Remarks/Hospital Course This is a 61-year-old male with a past history of alcohol abuse and a prior admission in 2015 for severe life-threatening hyponatremia at that time with a serum sodium of 98. He presents today with what he states is a 13 day history of worsening fatigue and weakness. He is very altered and is very difficult to understand the patient. What I can understand from him, is that at some point during these 13 days he has fallen and hit his face. Otherwise he states he lays on the couch, and has not gotten not much. He states he drinks 1 beer in the morning, and 1 beer in the afternoon. He does endorse taking some Xanax to help him sleep. He denies other drug use. He denies chest pain, shortness of breath, fever, chills, nausea, vomiting, abdominal pain. It is very difficult to get him to answer anymore questions about his medical history. His speech is very slurred and he is trying to talk about how he misses his daughter. Emergency department he was found to have a serum sodium of 99, a bilirubin of 8.9, lactate of 9.8, ammonia of 60, CK of 7000, elevated troponin of 4.9 with a normal MB ratio, creatinine 1.5, serum bicarbonate of 13. His white count is 12 , platelets 112. INR 1.9. His MELD calculates at 26. 4/2: Sodium level rapidly corrected overnight, likely secondary to appropriate correction of severe life-threatening dehydration. NS fluids changed to 1/2NS and correction slowed down significantly. sodium up to 130 this AM. CK downtrending. however, patient remains severely hypotensive requiring Levophed to maintain a map > 65 mmHg. This AM, serum K 1.6 (confirmed). started replacement with 200meq KCl and recheck K. 03/04: persists in vasoplegic distributive shock. afebrile. no evidence of infection. wbc downtrending. persists with severe life-threatening electrolyte derangements. passed swallow eval for nectar thick liquids. sodium stable at 131. ck downtrending. 03/05: persists in distributive shock. echo yesterday with EF 30%, globally decreased function. milrinone added yesterday with improvement in vasopressor requirement. still with multiple electrolyte abnormalities despite very aggressive replacement. very poor appetite. sodium stable at 131, which appears to be around baseline for him, looking back at prior records. also became agitated and delirious yesterday, likely secondary to etoh withdraw. started on Ativan and Librium. 03/06: electrolyte derangements persist. placed on continuous NaPhos infusion x 24h due to severe life-threatening hypophosphatemia. serial K, phos checks. weaning off levophed, milrinone persists. still poor appetite. sodium jumped from 132 to 139, but no significant mental status change, and we did not increase sodium load. 03/07: still requiring high electrolyte replacement. milrinone weaned to 0.375 mcg /kg/min overnight. still doing well with that. delirium persists. 03/08 Remains on milrinone. Electrolyte improving. Remains very lethargic, intermittently follows commands 03/09: Continues to be lethargic but wakes up follows some commands. Remains on milrinone will DC today. T max 100.1, urine output adequate sodium is 143 03/10: More awake alert, ate 50% of break fast. Will DC Dobhoff. Discontinue arterial and central lines. Delirium also improved, remains weak 03/11: doing much better this morning. no complaints. still with poor appetite. electrolytes improved. 03/20: We consulted for respiratory failure. Patient was last seen in room 1415 CMP receiving oral cares and became acutely hypoxic saturations 82% with coarse breath sounds. Halicat called. Patient was placed on a Venturi mask 50 % with desaturations to the mid 90s. He received Solu-Medrol 20 mg IV 1, Lasix 40 mg IV 1 and was transferred IM [facility] 521. Hemodynamically stable. Poor mentation 03/25: Reconsulted due to respiratory failure. Patient with gurgling/ transmitted upper airway sounds. Respiration the 50s. Decision made to orotracheally intubate. Noted to have been febrile with increased O2 course over the past 48 hours. 03/26: Afebrile. Requiring Nimbex drip for ventilator synchrony. Decreased urine output noted. Hemoglobin decreased likely dilutional. Tolerating tube feeding. Electrolytes been replaced. 03/27: Tmax 100.9. Currently 97.2. +6 L past 24 hours. Hemoglobin 8 transfuse overnight. Potassium 3. We'll discontinue Nimbex drip for vent synchrony today. 03/28: Afebrile. Negative fluid balance past 24 hours. Hemoglobin currently 9. Potassium 3.0. Currently on sedation vacation positive gag and otherwise unresponsive. 03/29: Tmax 103. Currently afebrile. Not tolerating tube feeds. Remains on Kiran-Synephrine. Did not tolerate sedation vacation back on Versed at 5 mg an hour fentanyl drip at 100 mcg an hour. One bowel movement. 03/30 Tube feeds remain on hold. On neosynephrine 40 mcg/min, RN states she has been weaning. Having BMs. On Versed 8 mg/hr and fentanyl 100 mcg/hr. 03/31 Off versed. Remains on fentanyl 100 mcg/hr. Having hiccups. Still on neosynephrine 40 mcg/min. Tolerating trickle feeds. Had 2 bowel movements 04/01: no meaningful change. still requires fentanyl for sedation. still on low- dose vasopressors. 04/02: no changes. still on levo @ 7 mcg/min. unable to wean off fentanyl due to tachycardia and tachypnea. 04/03: Off all sedation. On low-dose norepinephrine. Essentially unresponsive on the ventilator. Plan for likely withdrawal of care tomorrow 04/04: Off all sedation. Off all vasopressors. According to overnight RN was following commands. Will open eyes but not following commands this AM. 04/05 No events overnight. Afebrile On no sedation. 04/06: Resting comfortably in bed. Eyes are open. Moving head back and forth continuously. Weakly following commands with his upper and lower extremities. 04/07: Low-grade temperatures overnight. 99.8. Eyes are open. Moving back and forth. Positive BM. Continues to be following commands. 04/08 Patient remains intubated on no sedation awake and follows commands. Tmax 100.8 04/09 Patient remains intubated, tolerated CPAP all day and had good responses in UO with Bumex yesterday. Afebrile. 04/10: Tmax 99.1. Went back on set rate ventilation yesterday. Will attempt PSV trials throughout the day with goal to attempt extubation tomorrow. 04/11: Tmax 100.2. Currently 100.1. Did not tolerate weaning parameters with NIF -9 and unacceptable RSBI. Patient is arousable and follows commands eyes open 04/12: Omayra care reports tonic-clonic seizure activity this AM. Heart rate in the 140s during episode with violent shaking. On examination, patient's eyes are open and at baseline except currently not following commands. 04/13: had 2 seizures this morning, both resolved without medication interventions. Dr. Fabrizio navas'd at bedside earlier and ordered Cerebyx load. no other changes. plan for trach/peg next week 04/14: still having breakthrough seizures on repeat EEG despite Cerebyx and Keppra. plan for PEG tomorrow. 04/15 No events overnight. Remains intubated. On no sedation. For PEG tube placement today. T:101.2 last night. 04/16 Patient remains intubated. For trach this afternoon. s/p PEG tube placement yesterday. Spiked fever with T:102.5 last night. 04/17 Patient s/p trach yesterday. T: 100.3 at midnight. 04/18 Continues to have low-grade fever. No change in mental status. Sputum Pseudomonas pansensitive. No seizures reported in the last 24 hours 04/19: No fever reported. Slightly more awake and was commands on right upper extremity by squeezing hands very weakly. On CPAP 15/04. Slightly tachypneic 04/20: WBC count slightly elevated today, tachypnea on CPAP. Continues to follow commands weakly on right hand. Intermittently about to wiggle toes. Slight increase in white count to 13,000. Tmax 100.9 ID following 04/21: Tolerated only 1 hour CPAP yesterday. Unable to reduce pressure support. Tmax 99.9 04/22: Remains on mechanical ventilation via tracheostomy. Tolerated C Pap trial for 1 hour yesterday. 04/23: Remains on mechanical ventilation via tracheostomy. Daily C Pap trials ongoing. Tolerating tube feeds. 04/24: Afebrile. Copious edema//swelling extremities. Decreased urine output noted. Remains on mechanical ventilation via trach acid. Daily C Pap trials ongoing. Positive BM. 04/25: Tmax 99.5. With copious edema. Will give 1 additional dose of Bumex today after albumin. Remains on ventilator via tracheostomy. Ongoing CPAP trials. 04/26: Tmax 100. Diuresed yesterday. Remains on ventilator via tracheostomy. Positive BM. 04/27: Diuresed well yesterday. Tolerating CPAP trials 4 hours today. Positive BM. Awake and interactive. Subjective: 04/28: Decreased urine output noted today. Low-grade temperature 99.3. Tolerating CPAP trials for the past 24 hours currently at 18/5 at 40%. 04/29: Awake and alert. Tolerating C Pap trials. 04/30: Drowsy, easily arousable. Tolerating C Pap trials. 05/01: Drowsy, arousable, tolerating C Pap trials. 05/02: Awake and alert. On mechanical ventilation via tracheostomy. Daily C Pap trials ongoing. 05/03: Awake, alert. On mechanical ventilation via tracheostomy. Tolerating C Pap trials. Had episode of emesis last night. 05/04: Awake and alert. Placed on T piece this morning. Resting comfortably. Tolerating tube feeds. Objective Vital Signs Date Time Temp Pulse Resp B/P Pulse Ox O2 Delivery O2 Flow Rate FiO2 05/04/17 10:00 82 05/04/17 08:49 95 T-piece 6.00 35 05/04/17 08:00 98.9 26 103/60 Intake and Output 05/03/17 05/03/17 05/04/17 08:00 16:00 00:00 Intake Total 345 ml 626 ml 193 ml Output Total 270 ml 400 ml 440 ml Balance 75 ml 226 ml -247 ml Result Diagram: 05/02/17 1740 05/02/17 1740 Imaging Last Impressions Chest X-Ray 04/28/17 0600 Signed Impressions: Service Date/Time: Friday, April 28, 2017 04:27 - CONCLUSION: 1. Bilateral basilar and perihilar air space disease slightly improved on the right. No significant effusion. Tracheostomy in satisfactory position Miguel Looney MD Abdomen/Pelvis CT 04/16/17 0000 Signed Impressions: Service Date/Time: Sunday, April 16, 2017 11:26 - CONCLUSION: 1. Cirrhosis and splenomegaly. 2. Ascites 3. Anasarca 4. No pancreas mass identified Yinka Harman MD Liver Ultrasound 04/15/17 0000 Signed Impressions: Service Date/Time: Saturday, April 15, 2017 09:24 - CONCLUSION: 1. Abnormal appearance of the pancreas with a nonspecific hypoechoic area involving the posterior part of the pancreas along the head and body region. Recommend CT scan of the abdomen with oral and IV contrast further evaluation. 2. Fatty infiltration throughout the liver. 3. There is thickening of the gallbladder wall at 6 mm. This is suggestive of chronic gallbladder disease. 4. Small amount of free fluid adjacent to the liver and spleen in the upper abdomen.. 5. Right-sided pleural effusion. Víctor Rosas MD Abdomen X-Ray 04/13/17 0000 Signed Impressions: Service Date/Time: Thursday, April 13, 2017 10:36 - CONCLUSION: Dobbhoff tip in distal stomach. No evidence of obstruction. Logan Morgan MD Head CT 04/12/17 0000 Signed Impressions: Service Date/Time: Wednesday, April 12, 2017 21:30 - CONCLUSION: Pontine encephalomalacia. Left mastoiditis. Casper Alva MD Head Magnetic Resonance Angiography 03/28/17 0000 Signed Impressions: Service Date/Time: March 17:22 - CONCLUSION: Unremarkable examination. K. Bijan Castillo MD Brain MRI 03/28/17 0000 Signed Impressions: Service Date/Time: March 17:22 - CONCLUSION: 1. 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 Small subacute ischemic bilateral thalamic infarcts. 2. There has been no significant change when compared to the prior exam. Yinka Harman MD Lower Extremity Ultrasound 03/25/17 0000 Signed Impressions: Service Date/Time: Saturday, March 25, 2017 22:17 - CONCLUSION: No evidence of DVT. Víctor Rosas MD CT Angiography 03/21/17 0000 Signed Impressions: Service Date/Time: March 00:33 - CONCLUSION: No evidence of pulmonary embolism is identified. Mild atelectasis left lung base. Fluid or phlegm within the trachea. Milo Muhammad MD Abdomen Ultrasound 03/20/17 0000 Signed Impressions: Service Date/Time: Monday, March 20, 2017 11:38 - CONCLUSION: 1. Hepatosplenomegaly without focal lesion. 2. Probable sludge within the lumen of the gallbladder. No intrahepatic duct. Cheo Martínez MD Shoulder X-Ray 03/02/17 1404 Signed Impressions: Service Date/Time: Thursday, March 02, 2017 15:18 - CONCLUSION: No evidence of recent bony injury. Deformity of the lateral left clavicle suggests old healed trauma. Cheo Martínez MD Maxillofacial CT 03/02/17 1342 Signed Impressions: Service Date/Time: Thursday, March 02, 2017 14:52 - CONCLUSION: Negative CT of the facial bones. Cheo Martínez MD Chest CT 03/02/17 1342 Signed Impressions: Service Date/Time: Thursday, March 02, 2017 15:04 - CONCLUSION: 1. Abnormal appearance of the lateral left clavicle suggesting a combination of acute and chronic bony injury. Fracture lucencies without bridging callus is seen the region of the coracoid process. 2. The lungs are clear. No evidence of pneumothorax. 3. Moderate size hiatus hernia. Cheo Martínez MD Cervical Spine CT 03/02/17 1342 Signed Impressions: Service Date/Time: Thursday, March 02, 2017 14:52 - CONCLUSION: Negative CT cervical spine. Cheo Martínez MD Objective Remarks GENERAL: 61-year-old chronically ill appearing male, critically ill. HEENT: Healing abrasion left side scalp. TIMOTHY. Scleral icterus. Poor dentition. NECK: Trachea Midline, Trach without bleed RESP: On T piece currently, Coarse breath sounds bilaterally. No wheezing or crackles. CARDIOVASCULAR: Tachycardia, RR. S1, S2. No S4. ABDOMEN: Slightly distended but soft, bowel sounds present, tolerating tube feeds. G-tube is clear dry and intact : Johns in place with conrad urine output. mild/moderate scrotal edema. MUSCULOSKELETAL: No obvious deformity. 1+ to 2+ edema all extremities NEUROLOGICAL: Awake and alert, following commands. Grade 3 power in upper extremities distally. Can wiggle his toes. A/P Assessment and Plan Neuro/Psych: Osmotic demyelination syndrome Acute toxic metabolic encephalopathy secondary to hypercarbic respiratory failure Alcohol dependence Seizures (History of EtOH induced seizure withdrawal) Chronic benzodiazepine use Bilateral thalamic CVA Off all sedation. oxycodone 5 mg every 4 hours as needed for pain. Ativan 0.5 mg PRN for sz MRI 03/21 - findings consistent with Osmotic demyelination syndrome. ODS most likely from rapid correction of Na, with underlying alcoholism. ( Patient was profoundly hypotensive in shock requiring multiple pressors at that time) MRI brain 03/28 revealed subacute bilateral thalamic lacunar infarcts, ODS. CT head 03/05 revealed no acute intracranial findings Continue thiamine 100 mg daily Seen by neurology/Dr. Mazariegos. EEG previously with persistent. continue Keppra 1000mg BID Respiratory: Acute hypoxemic hypercapnic respiratory failure Spontaneous breathing trials daily. Tolerating T piece since morning on 05/04 Ventilator bundle, s/p trach 04/16 Bronchodilator therapy every 6 hours and as needed SBT daily as pablo. Pulm toilet, trach care. Cardiovascular: Chronic Systolic heart failure Echocardiogram 03/04 revealed EF 35-40%. Mild MR. Left atrium dilated. JANE 33 mmHg s/p hydrocortisone. Continue midodrine 10 mg 3 times Monitor HR and BP keep MAP>65mmHg Renal/FEN: Acute Kidney Injury Rhabdomyolysis- resolved ODS-see neuro Hypernatremia - resolving Monitor renal function, I/O's, electrolytes replacement per protocol. DC D5/12/03 NS 04/21 GI: EtOH cirrhosis Hyperammonemia Hiatal hernia Sigmoid diverticulosis Hypoalbuminemia Continue tube feeds via PEG tube-(Jevity 1.5 with goal rate 60ml/hr) s/p PEG tube placement 04/15 CT abdomen/pelvis 04/16: Cirrhosis of liver, splenomegaly, anasarca, ascites(mild ) On Xifaxan 550 twice a day/lactulose 30 twice a day. US Liver 04/15: Abnormal appearance of the pancreas with a nonspecific hypoechoic area involving the posterior part of the pancreas along the head and body region. Fatty infiltration throughout the liver. There is thickening of the gallbladder wall at 6 mm. Suggestive of chronic gallbladder disease. Small amount of free fluid adjacent to the liver and spleen in the upper abdomen. Right-sided pleural effusion. 03/20 Ultrasound liver-hepatosplenomegaly. Sludge in gallbladder On IV Protonix switched to Prevacid Heme: Leukocytosis Macrocytic anemia - now normocytic Monitor CBC. No indications for transfusion of blood proximally postop B12 1452, Folate 15.2. TSH 0.8. ID: Aspiration pneumonia, PSAE in sputum Escherichia coli UTI 03/11 - completed therapy Acinetobacter pneumonia Pertinent cultures 04/29 - MDR Acinetobacter 04/26 - urine -C. albicans 04/15 Sputum cx: PSAE 04/15 urine cx: Klebsiella 04/15 BC: NGTD 04/12 BC: NGTD 04/08 - blood cultures 2 - no growth 5/8 - sputum - no growth 04/05 - urine -C GLABRATA AND C. ALBICANS 03/29 - blood cultures 2 - NGTD 03/25 - sputum --Acinetobacter. 03/25 - urine - NGTD 03/25 - blood cultures 2 -no growth 03/22 - urine - no growth 03/22 - blood cultures 2 - negative 03/20 - blood cultures 2 - no growth 03/11 - urine - Escherichia coli 03/02 - blood cultures 2 - no growth Followed by Dr. Lisa/ID. Changed Zosyn to cefepime 04/17 Levaquin started 04/20/17 by ID. Complete therapy by 04/30/17 Started Diflucan 100 daily 04/26 for C. albicans funguria - to complete 7 days of therapy Off Flagyl po 03/24 Procalcitonin level: 0.40, C-diff PCR negative 04/10 Colistin nebs for MDRO Acinetobacter in sputum 04/29 Endocrine: Hyperglycemia of critical illness History of hypothyroidism SSI with Accu-Cheks every 4 hours to maintain euglycemia MSK: History of old left clavicle fracture PT/OT evaluate and treat Access Peripheral IV. Prophylaxis: GI -Prevacid DVT - SCD/heparin subcutaneous Palliative care is following code status changed to full code per daughter's request. Tamanna Sandhu, daughter/ HCP: from [facility] [phone] now confirmed transferred to [facility] in [place] facility ) Code status -full code CM working on LTAC placement Level 2 Elliott Rock MD May 04, 2017 11:40
[2017-05-04] MEDS: ARTIFICIAL TEARS OPTH SOLN 15 ML BTL EACH EYE SCH ×3 (12:27→18:00)
[2017-05-04] MEDS: SODIUM CHLORIDE 0.9% FLUSH 10 ML FLUSH IV FLUSH SCH ×2 (12:28→20:10)
[2017-05-04] MEDS: SODIUM HYPOCHLORITE 0.125% 500 ML BTL TOPICAL SCH (12:29)
[2017-05-04] MEDS: NYSTATIN 100,000 U/GM PWD 15 GM BTL TOPICAL SCH ×2 (12:29→20:11)
[2017-05-04] MEDS: SODIUM CHLORIDE 0.9% FLUSH 10 ML FLUSH IVF SCH (12:30)
[2017-05-05] VITALS (17 sets, daily range): BP systolic 100–128; BP diastolic 64–71; PULSE 84–92; RESP 17–24; TEMP 97.7–99.3; O2SAT 86–100
[2017-05-05] MEDS: MIDODRINE 5 MG TAB PO SCH ×3 (05:48→21:48)
[2017-05-05 06:45] LABS: AUTOMATED NEUTROPHIL # 7.9 TH/MM3 (1.8-7.7); BASOPHIL % 0.3 % (0.0-2.0); EOSINOPHIL # 0.1 TH/MM3 (0-0.4); EOSINOPHIL % 1.4 % (0.0-4.0); HEMATOCRIT 24.5 % (39.0-51.0); HEMO FLAGS DIFF FINAL; LYMPH % 13.1 % (9.0-44.0); LYMPHOCYTE # 1.3 TH/MM3 (1.0-4.8); MEAN CORPUSCULAR HEMOGLOBIN 33.9 PG (27.0-34.0); MEAN CORPUSCULAR HGB CONC 34.2 % (32.0-36.0); MONO % 6.1 % (0.0-8.0); NEUT % 79.1 % (16.0-70.0); PLATELET COUNT 156 TH/MM3 (150-450); RED BLOOD COUNT 2.47 MIL/MM3 (4.50-5.90); RED CELL DISTRIBUTION WIDTH 14.7 % (11.6-17.2)
[2017-05-05 06:58] LABS: ALT (GPT) 58 U/L (12-78); ANION GAP 8 MEQ/L (5-15); AST (GOT) 133 U/L (15-37); BICARBONATE 26.6 MEQ/L (21.0-32.0); BLOOD UREA NITROGEN 14 MG/DL (7-18); CHLORIDE 106 MEQ/L (98-107); GLOMERULAR FILTRATION RATE 347 ML/MIN (>89); POTASSIUM 3.7 MEQ/L (3.5-5.1); SODIUM (NA) 141 MEQ/L (136-145)
[2017-05-05 07:00] LABS: ALKALINE PHOSPHATASE 424 U/L (45-117); TOTAL BILIRUBIN ADULT 1.2 MG/DL (0.2-1.0)
[2017-05-05] MEDS: RESP: COLISTIN 150 MG VIAL NEB SCH ×2 (07:23→19:49)
[2017-05-05] MEDS: ARTIFICIAL TEARS OPTH SOLN 15 ML BTL EACH EYE SCH ×3 (08:45→18:00)
[2017-05-05] MEDS: CHLORHEXIDINE 0.12% (ORAL KIT) 15 ML CUP MT SCH ×2 (08:45→21:52)
[2017-05-05] MEDS: SODIUM CHLORIDE 0.9% FLUSH 10 ML FLUSH IV FLUSH SCH ×2 (08:46→21:51)
[2017-05-05] MEDS: MUPIROCIN 2% OINT 1 APPLIC/GM SYR EACH NARE SCH ×2 (08:46→21:48)
[2017-05-05] MEDS: LANSOPRAZOLE SOLUTAB 30 MG TAB NG SCH (08:47)
[2017-05-05] MEDS: levETIRAcetam 500 MG/5 ML UDC NG SCH ×2 (08:47→21:48)
[2017-05-05] MEDS: RIFAXIMIN 550 MG TAB PO SCH ×2 (08:47→21:48)
[2017-05-05] MEDS: SODIUM CHLORIDE 0.9% FLUSH 10 ML FLUSH IVF SCH (08:47)
[2017-05-05] MEDS: THIAMINE HCL 100 MG TAB PO SCH (08:47)
[2017-05-05] MEDS: HEPARIN SODIUM - SQ 10,000 UNITS/ML VIAL SQ SCH ×2 (08:48→21:49)
[2017-05-05] MEDS: LACTOBACILLUS ACIDOPHILUS TAB PO SCH ×3 (08:48→18:16)
[2017-05-05] MEDS: INSULIN NovoLIN REGULAR SUPPLEMENTAL SCALE SQ SCH ×2 (08:48→21:00)
[2017-05-05] MEDS: LACTULOSE SYRUP 20 GM/30 ML CUP PO SCH ×2 (08:48→21:51)
[2017-05-05] MEDS: NYSTATIN 100,000 U/GM PWD 15 GM BTL TOPICAL SCH ×2 (08:49→21:00)
[2017-05-05] MEDS: SODIUM HYPOCHLORITE 0.125% 500 ML BTL TOPICAL SCH (08:50)
--- NOTE | 2017-05-05 10:50 | HHI.CCPN ---
Subjective Remarks/Hospital Course This is a 61-year-old male with a past history of alcohol abuse and a prior admission in 2015 for severe life-threatening hyponatremia at that time with a serum sodium of 98. He presents today with what he states is a 13 day history of worsening fatigue and weakness. He is very altered and is very difficult to understand the patient. What I can understand from him, is that at some point during these 13 days he has fallen and hit his face. Otherwise he states he lays on the couch, and has not gotten not much. He states he drinks 1 beer in the morning, and 1 beer in the afternoon. He does endorse taking some Xanax to help him sleep. He denies other drug use. He denies chest pain, shortness of breath, fever, chills, nausea, vomiting, abdominal pain. It is very difficult to get him to answer anymore questions about his medical history. His speech is very slurred and he is trying to talk about how he misses his daughter. Emergency department he was found to have a serum sodium of 99, a bilirubin of 8.9, lactate of 9.8, ammonia of 60, CK of 7000, elevated troponin of 4.9 with a normal MB ratio, creatinine 1.5, serum bicarbonate of 13. His white count is 12 , platelets 112. INR 1.9. His MELD calculates at 26. 4/2: Sodium level rapidly corrected overnight, likely secondary to appropriate correction of severe life-threatening dehydration. NS fluids changed to 1/2NS and correction slowed down significantly. sodium up to 130 this AM. CK downtrending. however, patient remains severely hypotensive requiring Levophed to maintain a map > 65 mmHg. This AM, serum K 1.6 (confirmed). started replacement with 200meq KCl and recheck K. 03/04: persists in vasoplegic distributive shock. afebrile. no evidence of infection. wbc downtrending. persists with severe life-threatening electrolyte derangements. passed swallow eval for nectar thick liquids. sodium stable at 131. ck downtrending. 03/05: persists in distributive shock. echo yesterday with EF 30%, globally decreased function. milrinone added yesterday with improvement in vasopressor requirement. still with multiple electrolyte abnormalities despite very aggressive replacement. very poor appetite. sodium stable at 131, which appears to be around baseline for him, looking back at prior records. also became agitated and delirious yesterday, likely secondary to etoh withdraw. started on Ativan and Librium. 03/06: electrolyte derangements persist. placed on continuous NaPhos infusion x 24h due to severe life-threatening hypophosphatemia. serial K, phos checks. weaning off levophed, milrinone persists. still poor appetite. sodium jumped from 132 to 139, but no significant mental status change, and we did not increase sodium load. 03/07: still requiring high electrolyte replacement. milrinone weaned to 0.375 mcg /kg/min overnight. still doing well with that. delirium persists. 03/08 Remains on milrinone. Electrolyte improving. Remains very lethargic, intermittently follows commands 03/09: Continues to be lethargic but wakes up follows some commands. Remains on milrinone will DC today. T max 100.1, urine output adequate sodium is 143 03/10: More awake alert, ate 50% of break fast. Will DC Dobhoff. Discontinue arterial and central lines. Delirium also improved, remains weak 03/11: doing much better this morning. no complaints. still with poor appetite. electrolytes improved. 03/20: We consulted for respiratory failure. Patient was last seen in room 1415 CMP receiving oral cares and became acutely hypoxic saturations 82% with coarse breath sounds. Halicat called. Patient was placed on a Venturi mask 50 % with desaturations to the mid 90s. He received Solu-Medrol 20 mg IV 1, Lasix 40 mg IV 1 and was transferred IM [facility] 521. Hemodynamically stable. Poor mentation 03/25: Reconsulted due to respiratory failure. Patient with gurgling/ transmitted upper airway sounds. Respiration the 50s. Decision made to orotracheally intubate. Noted to have been febrile with increased O2 course over the past 48 hours. 03/26: Afebrile. Requiring Nimbex drip for ventilator synchrony. Decreased urine output noted. Hemoglobin decreased likely dilutional. Tolerating tube feeding. Electrolytes been replaced. 03/27: Tmax 100.9. Currently 97.2. +6 L past 24 hours. Hemoglobin 8 transfuse overnight. Potassium 3. We'll discontinue Nimbex drip for vent synchrony today. 03/28: Afebrile. Negative fluid balance past 24 hours. Hemoglobin currently 9. Potassium 3.0. Currently on sedation vacation positive gag and otherwise unresponsive. 03/29: Tmax 103. Currently afebrile. Not tolerating tube feeds. Remains on Kiran-Synephrine. Did not tolerate sedation vacation back on Versed at 5 mg an hour fentanyl drip at 100 mcg an hour. One bowel movement. 03/30 Tube feeds remain on hold. On neosynephrine 40 mcg/min, RN states she has been weaning. Having BMs. On Versed 8 mg/hr and fentanyl 100 mcg/hr. 03/31 Off versed. Remains on fentanyl 100 mcg/hr. Having hiccups. Still on neosynephrine 40 mcg/min. Tolerating trickle feeds. Had 2 bowel movements 04/01: no meaningful change. still requires fentanyl for sedation. still on low- dose vasopressors. 04/02: no changes. still on levo @ 7 mcg/min. unable to wean off fentanyl due to tachycardia and tachypnea. 04/03: Off all sedation. On low-dose norepinephrine. Essentially unresponsive on the ventilator. Plan for likely withdrawal of care tomorrow 04/04: Off all sedation. Off all vasopressors. According to overnight RN was following commands. Will open eyes but not following commands this AM. 04/05 No events overnight. Afebrile On no sedation. 04/06: Resting comfortably in bed. Eyes are open. Moving head back and forth continuously. Weakly following commands with his upper and lower extremities. 04/07: Low-grade temperatures overnight. 99.8. Eyes are open. Moving back and forth. Positive BM. Continues to be following commands. 04/08 Patient remains intubated on no sedation awake and follows commands. Tmax 100.8 04/09 Patient remains intubated, tolerated CPAP all day and had good responses in UO with Bumex yesterday. Afebrile. 04/10: Tmax 99.1. Went back on set rate ventilation yesterday. Will attempt PSV trials throughout the day with goal to attempt extubation tomorrow. 04/11: Tmax 100.2. Currently 100.1. Did not tolerate weaning parameters with NIF -9 and unacceptable RSBI. Patient is arousable and follows commands eyes open 04/12: Omayra care reports tonic-clonic seizure activity this AM. Heart rate in the 140s during episode with violent shaking. On examination, patient's eyes are open and at baseline except currently not following commands. 04/13: had 2 seizures this morning, both resolved without medication interventions. Dr. Fabrizio navas'd at bedside earlier and ordered Cerebyx load. no other changes. plan for trach/peg next week 04/14: still having breakthrough seizures on repeat EEG despite Cerebyx and Keppra. plan for PEG tomorrow. 04/15 No events overnight. Remains intubated. On no sedation. For PEG tube placement today. T:101.2 last night. 04/16 Patient remains intubated. For trach this afternoon. s/p PEG tube placement yesterday. Spiked fever with T:102.5 last night. 04/17 Patient s/p trach yesterday. T: 100.3 at midnight. 04/18 Continues to have low-grade fever. No change in mental status. Sputum Pseudomonas pansensitive. No seizures reported in the last 24 hours 04/19: No fever reported. Slightly more awake and was commands on right upper extremity by squeezing hands very weakly. On CPAP 15/04. Slightly tachypneic 04/20: WBC count slightly elevated today, tachypnea on CPAP. Continues to follow commands weakly on right hand. Intermittently about to wiggle toes. Slight increase in white count to 13,000. Tmax 100.9 ID following 04/21: Tolerated only 1 hour CPAP yesterday. Unable to reduce pressure support. Tmax 99.9 04/22: Remains on mechanical ventilation via tracheostomy. Tolerated C Pap trial for 1 hour yesterday. 04/23: Remains on mechanical ventilation via tracheostomy. Daily C Pap trials ongoing. Tolerating tube feeds. 04/24: Afebrile. Copious edema//swelling extremities. Decreased urine output noted. Remains on mechanical ventilation via trach acid. Daily C Pap trials ongoing. Positive BM. 04/25: Tmax 99.5. With copious edema. Will give 1 additional dose of Bumex today after albumin. Remains on ventilator via tracheostomy. Ongoing CPAP trials. 04/26: Tmax 100. Diuresed yesterday. Remains on ventilator via tracheostomy. Positive BM. 04/27: Diuresed well yesterday. Tolerating CPAP trials 4 hours today. Positive BM. Awake and interactive. Subjective: 04/28: Decreased urine output noted today. Low-grade temperature 99.3. Tolerating CPAP trials for the past 24 hours currently at 18/5 at 40%. 04/29: Awake and alert. Tolerating C Pap trials. 04/30: Drowsy, easily arousable. Tolerating C Pap trials. 05/01: Drowsy, arousable, tolerating C Pap trials. 05/02: Awake and alert. On mechanical ventilation via tracheostomy. Daily C Pap trials ongoing. 05/03: Awake, alert. On mechanical ventilation via tracheostomy. Tolerating C Pap trials. Had episode of emesis last night. 05/04: Awake and alert. Placed on T piece this morning. Resting comfortably. Tolerating tube feeds. 05/05: Awake and alert. Following commands. On T piece all day yesterday. Rested on vent last night. Back on T piece this morning. Objective Vital Signs Date Time Temp Pulse Resp B/P Pulse Ox O2 Delivery O2 Flow Rate FiO2 05/05/17 07:30 100 T-piece 5.05/05/17 06:00 84 05/05/17 04:00 99.3 17 104/71 Intake and Output 05/04/17 05/04/17 05/05/17 08:00 16:00 00:00 Intake Total 460 ml 598 ml 381 ml Output Total 485 ml 1150 ml 225 ml Balance -25 ml -552 ml 156 ml Result Diagram: 05/05/17 0507 05/05/17 0507 Imaging Last Impressions Chest X-Ray 04/28/17 0600 Signed Impressions: Service Date/Time: Friday, April 28, 2017 04:27 - CONCLUSION: 1. Bilateral basilar and perihilar air space disease slightly improved on the right. No significant effusion. Tracheostomy in satisfactory position Miguel Looney MD Abdomen/Pelvis CT 04/16/17 0000 Signed Impressions: Service Date/Time: Sunday, April 16, 2017 11:26 - CONCLUSION: 1. Cirrhosis and splenomegaly. 2. Ascites 3. Anasarca 4. No pancreas mass identified Yinka Harman MD Liver Ultrasound 04/15/17 0000 Signed Impressions: Service Date/Time: Saturday, April 15, 2017 09:24 - CONCLUSION: 1. Abnormal appearance of the pancreas with a nonspecific hypoechoic area involving the posterior part of the pancreas along the head and body region. Recommend CT scan of the abdomen with oral and IV contrast further evaluation. 2. Fatty infiltration throughout the liver. 3. There is thickening of the gallbladder wall at 6 mm. This is suggestive of chronic gallbladder disease. 4. Small amount of free fluid adjacent to the liver and spleen in the upper abdomen.. 5. Right-sided pleural effusion. Víctor Rosas MD Abdomen X-Ray 04/13/17 0000 Signed Impressions: Service Date/Time: Thursday, April 13, 2017 10:36 - CONCLUSION: Dobbhoff tip in distal stomach. No evidence of obstruction. Logan Morgan MD Head CT 04/12/17 0000 Signed Impressions: Service Date/Time: Wednesday, April 12, 2017 21:30 - CONCLUSION: Pontine encephalomalacia. Left mastoiditis. Casper Alva MD Head Magnetic Resonance Angiography 03/28/17 0000 Signed Impressions: Service Date/Time: March 17:22 - CONCLUSION: Unremarkable examination. Bety Castillo MD Brain MRI 03/28/17 0000 Signed Impressions: Service Date/Time: March 17:22 - CONCLUSION: 1. 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 Small subacute ischemic bilateral thalamic infarcts. 2. There has been no significant change when compared to the prior exam. Yinka Harman MD Lower Extremity Ultrasound 03/25/17 0000 Signed Impressions: Service Date/Time: Saturday, March 25, 2017 22:17 - CONCLUSION: No evidence of DVT. Víctor Rosas MD CT Angiography 03/21/17 0000 Signed Impressions: Service Date/Time: March 00:33 - CONCLUSION: No evidence of pulmonary embolism is identified. Mild atelectasis left lung base. Fluid or phlegm within the trachea. Milo Muhammad MD Abdomen Ultrasound 03/20/17 0000 Signed Impressions: Service Date/Time: Monday, March 20, 2017 11:38 - CONCLUSION: 1. Hepatosplenomegaly without focal lesion. 2. Probable sludge within the lumen of the gallbladder. No intrahepatic duct. Cheo Martínez MD Shoulder X-Ray 4/1/17 1404 Signed Impressions: Service Date/Time: Thursday, March 02, 2017 15:18 - CONCLUSION: No evidence of recent bony injury. Deformity of the lateral left clavicle suggests old healed trauma. Cheo Martínez MD Maxillofacial CT 03/02/17 1342 Signed Impressions: Service Date/Time: Thursday, March 02, 2017 14:52 - CONCLUSION: Negative CT of the facial bones. Cheo Martínez MD Chest CT 03/02/17 1342 Signed Impressions: Service Date/Time: Thursday, March 02, 2017 15:04 - CONCLUSION: 1. Abnormal appearance of the lateral left clavicle suggesting a combination of acute and chronic bony injury. Fracture lucencies without bridging callus is seen the region of the coracoid process. 2. The lungs are clear. No evidence of pneumothorax. 3. Moderate size hiatus hernia. Cheo Martínez MD Cervical Spine CT 03/02/17 1342 Signed Impressions: Service Date/Time: Thursday, March 02, 2017 14:52 - CONCLUSION: Negative CT cervical spine. Cheo Martínez MD Objective Remarks GENERAL: 61-year-old chronically ill appearing male HEENT: Healing abrasion left side scalp. TIMOTHY. Scleral icterus. Poor dentition. NECK: Trachea Midline, Trach without bleed RESP: On T piece currently, Coarse breath sounds bilaterally. No wheezing or crackles. CARDIOVASCULAR: Tachycardia, RR. S1, S2. No S4. ABDOMEN: Slightly distended but soft, bowel sounds present, tolerating tube feeds. G-tube is clear dry and intact : Johns in place with conrad urine output. mild/moderate scrotal edema. MUSCULOSKELETAL: No obvious deformity. 1+ to 2+ edema all extremities NEUROLOGICAL: Awake and alert, following commands. Grade 3 power in upper extremities distally. Can wiggle his toes. A/P Assessment and Plan Neuro/Psych: Osmotic demyelination syndrome Acute toxic metabolic encephalopathy secondary to hypercarbic respiratory failure Alcohol dependence Seizures (History of EtOH induced seizure withdrawal) Chronic benzodiazepine use Bilateral thalamic CVA Off all sedation. oxycodone 5 mg every 4 hours as needed for pain. Ativan 0.5 mg PRN for sz MRI 03/21 - findings consistent with Osmotic demyelination syndrome. ODS most likely from rapid correction of Na, with underlying alcoholism. ( Patient was profoundly hypotensive in shock requiring multiple pressors at that time) MRI brain 03/28 revealed subacute bilateral thalamic lacunar infarcts, ODS. CT head 03/05 revealed no acute intracranial findings Continue thiamine 100 mg daily Seen by neurology/Dr. Mazariegos. EEG previously with persistent. continue Keppra 1000mg BID Respiratory: Acute hypoxemic hypercapnic respiratory failure Spontaneous breathing trials daily. Tolerating T piece since morning on 05/04. DPs during day, on vent at night. We will attempt T piece as tolerated. Ventilator bundle, s/p trach 04/16 Bronchodilator therapy every 6 hours and as needed Pulm toilet, trach care. Cardiovascular: Chronic Systolic heart failure Echocardiogram 03/04 revealed EF 35-40%. Mild MR. Left atrium dilated. JANE 33 mmHg s/p hydrocortisone. Continue midodrine 10 mg 3 times Monitor HR and BP keep MAP>65mmHg Renal/FEN: Acute Kidney Injury Rhabdomyolysis- resolved ODS-see neuro Hypernatremia - resolving Monitor renal function, I/O's, electrolytes replacement per protocol. DC D5//2 NS 04/21 GI: EtOH cirrhosis Hyperammonemia Hiatal hernia Sigmoid diverticulosis Hypoalbuminemia Continue tube feeds via PEG tube-(Jevity 1.5 with goal rate 60ml/hr) s/p PEG tube placement 04/15 CT abdomen/pelvis 04/16: Cirrhosis of liver, splenomegaly, anasarca, ascites(mild ) On Xifaxan 550 twice a day/lactulose 30 twice a day. US Liver 04/15: Abnormal appearance of the pancreas with a nonspecific hypoechoic area involving the posterior part of the pancreas along the head and body region. Fatty infiltration throughout the liver. There is thickening of the gallbladder wall at 6 mm. Suggestive of chronic gallbladder disease. Small amount of free fluid adjacent to the liver and spleen in the upper abdomen. Right-sided pleural effusion. 03/20 Ultrasound liver-hepatosplenomegaly. Sludge in gallbladder Prevacid Heme: Leukocytosis Macrocytic anemia - now normocytic Monitor CBC. No indications for transfusion of blood proximally postop B12 1452, Folate 15.2. TSH 0.8. ID: Aspiration pneumonia, PSAE in sputum Escherichia coli UTI 03/11 - completed therapy Acinetobacter pneumonia Pertinent cultures 04/29 - MDR Acinetobacter 04/26 - urine -C. albicans 04/15 Sputum cx: PSAE 04/15 urine cx: Klebsiella 04/15 BC: NGTD 04/12 BC: NGTD 04/08 - blood cultures 2 - no growth 04/08 - sputum - no growth 04/05 - urine -C GLABRATA AND C. ALBICANS 03/29 - blood cultures 2 - NGTD 03/25 - sputum --Acinetobacter. 03/25 - urine - NGTD 03/25 - blood cultures 2 -no growth 03/22 - urine - no growth 03/22 - blood cultures 2 - negative 03/20 - blood cultures 2 - no growth 03/11 - urine - Escherichia coli 03/02 - blood cultures 2 - no growth Followed by Dr. Lisa/ID. Changed Zosyn to cefepime 04/17 Levaquin started 04/20/17 by ID. Complete therapy by 04/30/17 Started Diflucan 100 daily 04/26 for C. albicans funguria - to complete 7 days of therapy Off Flagyl po 03/24 Procalcitonin level: 0.40, C-diff PCR negative 04/10 Colistin nebs for MDRO Acinetobacter in sputum 04/29 Endocrine: Hyperglycemia of critical illness History of hypothyroidism SSI with Accu-Cheks every 4 hours to maintain euglycemia MSK: History of old left clavicle fracture PT/OT evaluate and treat Access Peripheral IV. Prophylaxis: GI -Prevacid DVT - SCD/heparin subcutaneous Palliative care is following code status changed to full code per daughter's request. Tamanna Sandhu, daughter/ HCP: from [facility] [phone] now confirmed transferred to [facility] in [place] facility ) Code status -full code CM working on LTAC placement Level 2 Elliott Rock MD May 05, 2017 10:50
[2017-05-06] VITALS (14 sets, daily range): BP systolic 104–125; BP diastolic 66–78; PULSE 88–109; RESP 18–30; TEMP 89.3–98.9; O2SAT 95–100
[2017-05-06] MEDS: MIDODRINE 5 MG TAB PO SCH ×3 (06:36→20:57)
[2017-05-06] MEDS: CHLORHEXIDINE 0.12% (ORAL KIT) 15 ML CUP MT SCH ×2 (07:36→20:00)
[2017-05-06] MEDS: RESP: COLISTIN 150 MG VIAL NEB SCH ×2 (08:00→20:58)
[2017-05-06] MEDS: LACTULOSE SYRUP 20 GM/30 ML CUP PO SCH ×3 (09:00→20:56)
[2017-05-06] MEDS: SODIUM HYPOCHLORITE 0.125% 500 ML BTL TOPICAL SCH (09:00)
[2017-05-06] MEDS: SODIUM CHLORIDE 0.9% FLUSH 10 ML FLUSH IVF SCH (09:00)
[2017-05-06] MEDS: LACTOBACILLUS ACIDOPHILUS TAB PO SCH ×2 (09:00→17:37)
[2017-05-06] MEDS: INSULIN NovoLIN REGULAR SUPPLEMENTAL SCALE SQ SCH ×2 (09:00→20:57)
[2017-05-06] MEDS: RIFAXIMIN 550 MG TAB PO SCH ×2 (09:00→20:56)
[2017-05-06] MEDS: NYSTATIN 100,000 U/GM PWD 15 GM BTL TOPICAL SCH ×2 (09:00→20:57)
[2017-05-06] MEDS: THIAMINE HCL 100 MG TAB PO SCH (09:00)
[2017-05-06] MEDS: MUPIROCIN 2% OINT 1 APPLIC/GM SYR EACH NARE SCH ×2 (09:00→20:56)
[2017-05-06] MEDS: ARTIFICIAL TEARS OPTH SOLN 15 ML BTL EACH EYE SCH ×3 (09:00→17:18)
[2017-05-06] MEDS: SODIUM CHLORIDE 0.9% FLUSH 10 ML FLUSH IV FLUSH SCH ×2 (09:00→20:56)
--- NOTE | 2017-05-06 09:04 | RADRPT ---
EXAM DATE/TIME: 05/06/2017 08:09 [place] COMPARISON: ABDOMEN KUB ONLY, March 30, 2017, 1:32. INDICATIONS : Abdominal distention. MEDICAL HISTORY : unobtainable SURGICAL HISTORY : unobtainable ENCOUNTER: Initial ACUITY: 1 day PAIN SCORE: Non-responsive. LOCATION: Bilateral abdomen FINDINGS: There is diffuse gaseous distention of the small bowel and stomach with air noted in the proximal col on. No gross pneumatosis or free air. No abnormal calcifications. CONCLUSION: 1. Findings consistent with moderate adynamic ileus versus partial distal small bowel obstruction. Yang Nash MD on May 06, 2017 at 9:00 Board Certified Radiologist. This report was verified electronically.
--- NOTE | 2017-05-06 09:06 | HHI.CCPN ---
Subjective Remarks/Hospital Course This is a 61-year-old male with a past history of alcohol abuse and a prior admission in 2015 for severe life-threatening hyponatremia at that time with a serum sodium of 98. He presents today with what he states is a 13 day history of worsening fatigue and weakness. He is very altered and is very difficult to understand the patient. What I can understand from him, is that at some point during these 13 days he has fallen and hit his face. Otherwise he states he lays on the couch, and has not gotten not much. He states he drinks 1 beer in the morning, and 1 beer in the afternoon. He does endorse taking some Xanax to help him sleep. He denies other drug use. He denies chest pain, shortness of breath, fever, chills, nausea, vomiting, abdominal pain. It is very difficult to get him to answer anymore questions about his medical history. His speech is very slurred and he is trying to talk about how he misses his daughter. Emergency department he was found to have a serum sodium of 99, a bilirubin of 8.9, lactate of 9.8, ammonia of 60, CK of 7000, elevated troponin of 4.9 with a normal MB ratio, creatinine 1.5, serum bicarbonate of 13. His white count is 12 , platelets 112. INR 1.9. His MELD calculates at 26. 4/2: Sodium level rapidly corrected overnight, likely secondary to appropriate correction of severe life-threatening dehydration. NS fluids changed to 1/2NS and correction slowed down significantly. sodium up to 130 this AM. CK downtrending. however, patient remains severely hypotensive requiring Levophed to maintain a map > 65 mmHg. This AM, serum K 1.6 (confirmed). started replacement with 200meq KCl and recheck K. 03/04: persists in vasoplegic distributive shock. afebrile. no evidence of infection. wbc downtrending. persists with severe life-threatening electrolyte derangements. passed swallow eval for nectar thick liquids. sodium stable at 131. ck downtrending. 03/05: persists in distributive shock. echo yesterday with EF 30%, globally decreased function. milrinone added yesterday with improvement in vasopressor requirement. still with multiple electrolyte abnormalities despite very aggressive replacement. very poor appetite. sodium stable at 131, which appears to be around baseline for him, looking back at prior records. also became agitated and delirious yesterday, likely secondary to etoh withdraw. started on Ativan and Librium. 03/06: electrolyte derangements persist. placed on continuous NaPhos infusion x 24h due to severe life-threatening hypophosphatemia. serial K, phos checks. weaning off levophed, milrinone persists. still poor appetite. sodium jumped from 132 to 139, but no significant mental status change, and we did not increase sodium load. 03/07: still requiring high electrolyte replacement. milrinone weaned to 0.375 mcg /kg/min overnight. still doing well with that. delirium persists. 03/08 Remains on milrinone. Electrolyte improving. Remains very lethargic, intermittently follows commands 03/09: Continues to be lethargic but wakes up follows some commands. Remains on milrinone will DC today. T max 100.1, urine output adequate sodium is 143 03/10: More awake alert, ate 50% of break fast. Will DC Dobhoff. Discontinue arterial and central lines. Delirium also improved, remains weak 03/11: doing much better this morning. no complaints. still with poor appetite. electrolytes improved. 03/20: We consulted for respiratory failure. Patient was last seen in room 1415 CMP receiving oral cares and became acutely hypoxic saturations 82% with coarse breath sounds. Halicat called. Patient was placed on a Venturi mask 50 % with desaturations to the mid 90s. He received Solu-Medrol 20 mg IV 1, Lasix 40 mg IV 1 and was transferred IM [facility] 521. Hemodynamically stable. Poor mentation 03/25: Reconsulted due to respiratory failure. Patient with gurgling/ transmitted upper airway sounds. Respiration the 50s. Decision made to orotracheally intubate. Noted to have been febrile with increased O2 course over the past 48 hours. 03/26: Afebrile. Requiring Nimbex drip for ventilator synchrony. Decreased urine output noted. Hemoglobin decreased likely dilutional. Tolerating tube feeding. Electrolytes been replaced. 03/27: Tmax 100.9. Currently 97.2. +6 L past 24 hours. Hemoglobin 8 transfuse overnight. Potassium 3. We'll discontinue Nimbex drip for vent synchrony today. 03/28: Afebrile. Negative fluid balance past 24 hours. Hemoglobin currently 9. Potassium 3.0. Currently on sedation vacation positive gag and otherwise unresponsive. 03/29: Tmax 103. Currently afebrile. Not tolerating tube feeds. Remains on Kiran-Synephrine. Did not tolerate sedation vacation back on Versed at 5 mg an hour fentanyl drip at 100 mcg an hour. One bowel movement. 03/30 Tube feeds remain on hold. On neosynephrine 40 mcg/min, RN states she has been weaning. Having BMs. On Versed 8 mg/hr and fentanyl 100 mcg/hr. 03/31 Off versed. Remains on fentanyl 100 mcg/hr. Having hiccups. Still on neosynephrine 40 mcg/min. Tolerating trickle feeds. Had 2 bowel movements 04/01: no meaningful change. still requires fentanyl for sedation. still on low- dose vasopressors. 04/02: no changes. still on levo @ 7 mcg/min. unable to wean off fentanyl due to tachycardia and tachypnea. 04/03: Off all sedation. On low-dose norepinephrine. Essentially unresponsive on the ventilator. Plan for likely withdrawal of care tomorrow 04/04: Off all sedation. Off all vasopressors. According to overnight RN was following commands. Will open eyes but not following commands this AM. 04/05 No events overnight. Afebrile On no sedation. 04/06: Resting comfortably in bed. Eyes are open. Moving head back and forth continuously. Weakly following commands with his upper and lower extremities. 04/07: Low-grade temperatures overnight. 99.8. Eyes are open. Moving back and forth. Positive BM. Continues to be following commands. 04/08 Patient remains intubated on no sedation awake and follows commands. Tmax 100.8 04/09 Patient remains intubated, tolerated CPAP all day and had good responses in UO with Bumex yesterday. Afebrile. 04/10: Tmax 99.1. Went back on set rate ventilation yesterday. Will attempt PSV trials throughout the day with goal to attempt extubation tomorrow. 04/11: Tmax 100.2. Currently 100.1. Did not tolerate weaning parameters with NIF -9 and unacceptable RSBI. Patient is arousable and follows commands eyes open 04/12: Omayra care reports tonic-clonic seizure activity this AM. Heart rate in the 140s during episode with violent shaking. On examination, patient's eyes are open and at baseline except currently not following commands. 04/13: had 2 seizures this morning, both resolved without medication interventions. Dr. Fabrizio navas'd at bedside earlier and ordered Cerebyx load. no other changes. plan for trach/peg next week 04/14: still having breakthrough seizures on repeat EEG despite Cerebyx and Keppra. plan for PEG tomorrow. 04/15 No events overnight. Remains intubated. On no sedation. For PEG tube placement today. T:101.2 last night. 04/16 Patient remains intubated. For trach this afternoon. s/p PEG tube placement yesterday. Spiked fever with T:102.5 last night. 04/17 Patient s/p trach yesterday. T: 100.3 at midnight. 04/18 Continues to have low-grade fever. No change in mental status. Sputum Pseudomonas pansensitive. No seizures reported in the last 24 hours 04/19: No fever reported. Slightly more awake and was commands on right upper extremity by squeezing hands very weakly. On CPAP 15/04. Slightly tachypneic 04/20: WBC count slightly elevated today, tachypnea on CPAP. Continues to follow commands weakly on right hand. Intermittently about to wiggle toes. Slight increase in white count to 13,000. Tmax 100.9 ID following 04/21: Tolerated only 1 hour CPAP yesterday. Unable to reduce pressure support. Tmax 99.9 04/22: Remains on mechanical ventilation via tracheostomy. Tolerated C Pap trial for 1 hour yesterday. 04/23: Remains on mechanical ventilation via tracheostomy. Daily C Pap trials ongoing. Tolerating tube feeds. 04/24: Afebrile. Copious edema//swelling extremities. Decreased urine output noted. Remains on mechanical ventilation via trach acid. Daily C Pap trials ongoing. Positive BM. 04/25: Tmax 99.5. With copious edema. Will give 1 additional dose of Bumex today after albumin. Remains on ventilator via tracheostomy. Ongoing CPAP trials. 04/26: Tmax 100. Diuresed yesterday. Remains on ventilator via tracheostomy. Positive BM. 04/27: Diuresed well yesterday. Tolerating CPAP trials 4 hours today. Positive BM. Awake and interactive. Subjective: 04/28: Decreased urine output noted today. Low-grade temperature 99.3. Tolerating CPAP trials for the past 24 hours currently at 18/5 at 40%. 04/29: Awake and alert. Tolerating C Pap trials. 04/30: Drowsy, easily arousable. Tolerating C Pap trials. 05/01: Drowsy, arousable, tolerating C Pap trials. 05/02: Awake and alert. On mechanical ventilation via tracheostomy. Daily C Pap trials ongoing. 05/03: Awake, alert. On mechanical ventilation via tracheostomy. Tolerating C Pap trials. Had episode of emesis last night. 05/04: Awake and alert. Placed on T piece this morning. Resting comfortably. Tolerating tube feeds. 05/05: Awake and alert. Following commands. On T piece all day yesterday. Rested on vent last night. Back on T piece this morning. 05/06: Awake and alert. Remains on T piece. Abdominal distention noted. KUB shows dilated bowel loops. Tube feeds held. Objective Vital Signs Date Time Temp Pulse Resp B/P Pulse Ox O2 Delivery O2 Flow Rate FiO2 05/06/17 08:04 100 T-piece 6.00 28 05/06/17 06:00 98 05/06/17 04:00 98.3 22 118/70 Intake and Output 05/05/17 05/05/17 05/06/17 08:00 16:00 00:00 Intake Total 271 ml 639 ml 103 ml Output Total 150 ml 400 ml 325 ml Balance 121 ml 239 ml -222 ml Result Diagram: 05/05/17 0507 05/05/17 0507 Imaging Last Impressions Chest X-Ray 04/28/17 0600 Signed Impressions: Service Date/Time: Friday, April 28, 2017 04:27 - CONCLUSION: 1. Bilateral basilar and perihilar air space disease slightly improved on the right. No significant effusion. Tracheostomy in satisfactory position Miguel Looney MD Abdomen/Pelvis CT 04/16/17 0000 Signed Impressions: Service Date/Time: Sunday, April 16, 2017 11:26 - CONCLUSION: 1. Cirrhosis and splenomegaly. 2. Ascites 3. Anasarca 4. No pancreas mass identified Yinka Harman MD Liver Ultrasound 04/15/17 0000 Signed Impressions: Service Date/Time: Saturday, April 15, 2017 09:24 - CONCLUSION: 1. Abnormal appearance of the pancreas with a nonspecific hypoechoic area involving the posterior part of the pancreas along the head and body region. Recommend CT scan of the abdomen with oral and IV contrast further evaluation. 2. Fatty infiltration throughout the liver. 3. There is thickening of the gallbladder wall at 6 mm. This is suggestive of chronic gallbladder disease. 4. Small amount of free fluid adjacent to the liver and spleen in the upper abdomen.. 5. Right-sided pleural effusion. Víctor Rosas MD Abdomen X-Ray 04/13/17 0000 Signed Impressions: Service Date/Time: Thursday, April 13, 2017 10:36 - CONCLUSION: Dobbhoff tip in distal stomach. No evidence of obstruction. Logan Morgan MD Head CT 04/12/17 0000 Signed Impressions: Service Date/Time: Wednesday, April 12, 2017 21:30 - CONCLUSION: Pontine encephalomalacia. Left mastoiditis. Casper Alva MD Head Magnetic Resonance Angiography 03/28/17 0000 Signed Impressions: Service Date/Time: March 17:22 - CONCLUSION: Unremarkable examination. KShiv Castillo MD Brain MRI 03/28/17 0000 Signed Impressions: Service Date/Time: March 17:22 - CONCLUSION: 1. 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 Small subacute ischemic bilateral thalamic infarcts. 2. There has been no significant change when compared to the prior exam. Yinka Harman MD Lower Extremity Ultrasound 03/25/17 0000 Signed Impressions: Service Date/Time: Saturday, March 25, 2017 22:17 - CONCLUSION: No evidence of DVT. Víctor Rosas MD CT Angiography 03/21/17 0000 Signed Impressions: Service Date/Time: March 00:33 - CONCLUSION: No evidence of pulmonary embolism is identified. Mild atelectasis left lung base. Fluid or phlegm within the trachea. Milo Muhammad MD Abdomen Ultrasound 03/20/17 0000 Signed Impressions: Service Date/Time: Monday, March 20, 2017 11:38 - CONCLUSION: 1. Hepatosplenomegaly without focal lesion. 2. Probable sludge within the lumen of the gallbladder. No intrahepatic duct. Cheo Martínez MD Shoulder X-Ray 03/02/17 1404 Signed Impressions: Service Date/Time: Thursday, March 02, 2017 15:18 - CONCLUSION: No evidence of recent bony injury. Deformity of the lateral left clavicle suggests old healed trauma. Cheo Martínez MD Maxillofacial CT 03/02/17 1342 Signed Impressions: Service Date/Time: Thursday, March 02, 2017 14:52 - CONCLUSION: Negative CT of the facial bones. Cheo Martínez MD Chest CT 03/02/17 1342 Signed Impressions: Service Date/Time: Thursday, March 02, 2017 15:04 - CONCLUSION: 1. Abnormal appearance of the lateral left clavicle suggesting a combination of acute and chronic bony injury. Fracture lucencies without bridging callus is seen the region of the coracoid process. 2. The lungs are clear. No evidence of pneumothorax. 3. Moderate size hiatus hernia. Cheo Martínez MD Cervical Spine CT 03/02/17 1342 Signed Impressions: Service Date/Time: Thursday, March 02, 2017 14:52 - CONCLUSION: Negative CT cervical spine. Cheo Martínez MD Objective Remarks GENERAL: 61-year-old chronically ill appearing male HEENT: Healing abrasion left side scalp. TIMOTHY. Scleral icterus. Poor dentition. NECK: Trachea Midline, Trach without bleed RESP: On T piece currently, Coarse breath sounds bilaterally. No wheezing or crackles. CARDIOVASCULAR: Tachycardia, RR. S1, S2. No S4. ABDOMEN: Distended, firm, vague tenderness, no guarding, bowel sounds sluggish. G-tube is clear dry and intact : Johns in place with conrad urine output. mild/moderate scrotal edema. MUSCULOSKELETAL: No obvious deformity. 1+ to 2+ edema all extremities NEUROLOGICAL: Awake and alert, following commands. Grade 3 power in upper extremities distally. Can wiggle his toes. A/P Assessment and Plan Neuro/Psych: Osmotic demyelination syndrome Acute toxic metabolic encephalopathy secondary to hypercarbic respiratory failure Alcohol dependence Seizures (History of EtOH induced seizure withdrawal) Chronic benzodiazepine use Bilateral thalamic CVA Off all sedation. oxycodone 5 mg every 4 hours as needed for pain. Ativan 0.5 mg PRN for sz MRI 03/21 - findings consistent with Osmotic demyelination syndrome. ODS most likely from rapid correction of Na, with underlying alcoholism. ( Patient was profoundly hypotensive in shock requiring multiple pressors at that time) MRI brain 03/28 revealed subacute bilateral thalamic lacunar infarcts, ODS. CT head 03/05 revealed no acute intracranial findings Continue thiamine 100 mg daily Seen by neurology/Dr. Mazariegos. EEG previously with persistent. continue Keppra 1000mg BID Respiratory: Acute hypoxemic hypercapnic respiratory failure Spontaneous breathing trials daily. Tolerating T piece since morning on 05/04. We will attempt T piece as tolerated. Ventilator bundle, s/p trach 04/16 Bronchodilator therapy every 6 hours and as needed Pulm toilet, trach care. Cardiovascular: Chronic Systolic heart failure Echocardiogram 03/04 revealed EF 35-40%. Mild MR. Left atrium dilated. JANE 33 mmHg s/p hydrocortisone. Continue midodrine 10 mg 3 times Monitor HR and BP keep MAP>65mmHg Renal/FEN: Acute Kidney Injury Rhabdomyolysis- resolved ODS-see neuro Hypernatremia - resolving Monitor renal function, I/O's, electrolytes replacement per protocol. DC D5/12/03 NS 04/21 GI: EtOH cirrhosis Hyperammonemia Hiatal hernia Sigmoid diverticulosis Hypoalbuminemia Tube feeds via PEG tube-(Jevity 1.5 with goal rate 60ml/hr). Tube feeds held on 05/06 due to increasing abdominal distention, KUB revealed dilated bowel loops. GI consult requested on 05/06 s/p PEG tube placement 04/15 CT abdomen/pelvis 04/16: Cirrhosis of liver, splenomegaly, anasarca, ascites(mild ) On Xifaxan 550 twice a day/lactulose 30 twice a day. US Liver 04/15: Abnormal appearance of the pancreas with a nonspecific hypoechoic area involving the posterior part of the pancreas along the head and body region. Fatty infiltration throughout the liver. There is thickening of the gallbladder wall at 6 mm. Suggestive of chronic gallbladder disease. Small amount of free fluid adjacent to the liver and spleen in the upper abdomen. Right-sided pleural effusion. 03/20 Ultrasound liver-hepatosplenomegaly. Sludge in gallbladder Prevacid Heme: Leukocytosis Macrocytic anemia - now normocytic Monitor CBC. No indications for transfusion of blood proximally postop B12 1452, Folate 15.2. TSH 0.8. ID: Aspiration pneumonia, PSAE in sputum Escherichia coli UTI 03/11 - completed therapy Acinetobacter pneumonia Pertinent cultures 04/29 - MDR Acinetobacter 04/26 - urine -C. albicans 04/15 Sputum cx: PSAE 04/15 urine cx: Klebsiella 04/15 BC: NGTD 04/12 BC: NGTD 04/08 - blood cultures 2 - no growth 04/08 - sputum - no growth 04/05 - urine -C GLABRATA AND C. ALBICANS 03/29 - blood cultures 2 - NGTD 03/25 - sputum --Acinetobacter. 03/25 - urine - NGTD 03/25 - blood cultures 2 -no growth 03/22 - urine - no growth 03/22 - blood cultures 2 - negative 03/20 - blood cultures 2 - no growth 03/11 - urine - Escherichia coli 03/02 - blood cultures 2 - no growth Followed by Dr. Lisa/ID. Changed Zosyn to cefepime 04/17 Levaquin started 04/20/17 by ID. Complete therapy by 04/30/17 Started Diflucan 100 daily 04/26 for C. albicans funguria - to complete 7 days of therapy Off Flagyl po 03/24 Procalcitonin level: 0.40, C-diff PCR negative 04/10 Colistin nebs for MDRO Acinetobacter in sputum 04/29 Endocrine: Hyperglycemia of critical illness History of hypothyroidism SSI with Accu-Cheks every 4 hours to maintain euglycemia MSK: History of old left clavicle fracture PT/OT evaluate and treat Access Peripheral IV. Prophylaxis: GI -Prevacid DVT - SCD/heparin subcutaneous Palliative care is following code status changed to full code per daughter's request. Tamanna Sandhu, daughter/ HCP: from [facility] [phone] now confirmed transferred to [facility] in [place] facility ) Code status -full code CM working on LTAC placement Level 3 Elliott Rock MD May 06, 2017 09:06
[2017-05-06] MEDS: levETIRAcetam 500 MG/5 ML UDC NG SCH ×2 (11:09→20:56)
[2017-05-06] MEDS: LANSOPRAZOLE SOLUTAB 30 MG TAB NG SCH (11:09)
[2017-05-06] MEDS: HEPARIN SODIUM - SQ 10,000 UNITS/ML VIAL SQ SCH ×2 (11:09→20:56)
--- NOTE | 2017-05-06 12:43 | HHI.GIFU ---
Subjective Remarks This is a 61 yo patient w/ hx ETOH abuse, cirrhosis, AMS, CHF, repiratory failure s/p PEG placement after need for prolonged ventilation. GI has been reconsulted for possible ileus. Per RN he vomits his TF, today he did so moderate amount and his abd has been more distended. He has liquid BMs. PEG currently to suction. Pt nonverbal but does indicate that he has pain all over his abdomen. (Jackie Styles BIOMASS TECHNICIAN) Objective Vitals I&O Vital Signs Date Time Temp Pulse Resp B/P Pulse Ox O2 Delivery O2 Flow Rate FiO2 05/06/17 12:00 103 05/06/17 12:00 89.3 101 18 110/70 98 05/06/17 10:00 101 05/06/17 08:04 100 T-piece 6.00 28 05/06/17 08:00 100 05/06/17 08:00 98.1 109 30 125/78 95 05/06/17 06:00 98 05/06/17 04:00 92 05/06/17 04:00 35 05/06/17 04:00 98.3 92 22 118/70 96 05/06/17 02:00 95 05/06/17 00:00 35 05/06/17 00:00 98.0 88 21 104/66 99 05/06/17 00:00 88 05/05/17 22:00 86 05/05/17 20:00 92 05/05/17 20:00 97.7 92 22 115/69 100 05/05/17 20:00 35 05/05/17 19:58 98 T-piece 5.00 28 05/05/17 18:00 89 05/05/17 16:00 35 05/05/17 16:00 99.1 89 24 128/71 05/05/17 16:00 89 05/05/17 14:00 90 I/O 05/05/17 05/05/17 05/05/17 05/06/17 05/06/17 05/06/17 07:00 15:00 23:00 07:00 15:00 23:00 Intake Total 271 ml 639 ml 103 ml 322 ml Output Total 150 ml 400 ml 325 ml 200 ml Balance 121 ml 239 ml -222 ml 122 ml Tube Feeding 271 ml 539 ml 103 ml 322 ml Tube Irrigant 100 ml Output Urine Total 150 ml 400 ml 325 ml 200 ml # Bowel Movements 3 Imaging Last Impressions Abdomen X-Ray 05/06/17 0000 Signed Impressions: Service Date/Time: Saturday, May 06, 2017 08:09 - CONCLUSION: 1. Findings consistent with moderate adynamic ileus versus partial distal small bowel obstruction. Yang Nash MD Chest X-Ray 04/29/17 0600 Signed Impressions: Service Date/Time: Saturday, April 29, 2017 06:19 - CONCLUSION: No significant change Casper Alva MD Abdomen/Pelvis CT 04/16/17 0000 Signed Impressions: Service Date/Time: Sunday, April 16, 2017 11:26 - CONCLUSION: 1. Cirrhosis and splenomegaly. 2. Ascites 3. Anasarca 4. No pancreas mass identified Yinka Harman MD Liver Ultrasound 04/15/17 0000 Signed Impressions: Service Date/Time: Saturday, April 15, 2017 09:24 - CONCLUSION: 1. Abnormal appearance of the pancreas with a nonspecific hypoechoic area involving the posterior part of the pancreas along the head and body region. Recommend CT scan of the abdomen with oral and IV contrast further evaluation. 2. Fatty infiltration throughout the liver. 3. There is thickening of the gallbladder wall at 6 mm. This is suggestive of chronic gallbladder disease. 4. Small amount of free fluid adjacent to the liver and spleen in the upper abdomen.. 5. Right-sided pleural effusion. Víctor Rosas MD Head CT 04/12/17 0000 Signed Impressions: Service Date/Time: Wednesday, April 12, 2017 21:30 - CONCLUSION: Pontine encephalomalacia. Left mastoiditis. Casper Alva MD Head Magnetic Resonance Angiography 03/28/17 0000 Signed Impressions: Service Date/Time: March 17:22 - CONCLUSION: Unremarkable examination. Bety Castillo MD Brain MRI 03/28/17 0000 Signed Impressions: Service Date/Time: March 17:22 - CONCLUSION: 1. 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 Small subacute ischemic bilateral thalamic infarcts. 2. There has been no significant change when compared to the prior exam. Yinka Harman MD Lower Extremity Ultrasound 03/25/17 0000 Signed Impressions: Service Date/Time: Saturday, March 25, 2017 22:17 - CONCLUSION: No evidence of DVT. Víctor Rosas MD CT Angiography 03/21/17 0000 Signed Impressions: Service Date/Time: March 00:33 - CONCLUSION: No evidence of pulmonary embolism is identified. Mild atelectasis left lung base. Fluid or phlegm within the trachea. Milo Muhammad MD Abdomen Ultrasound 03/20/17 0000 Signed Impressions: Service Date/Time: Monday, March 20, 2017 11:38 - CONCLUSION: 1. Hepatosplenomegaly without focal lesion. 2. Probable sludge within the lumen of the gallbladder. No intrahepatic duct. Cheo Martínez MD Shoulder X-Ray 03/02/17 1404 Signed Impressions: Service Date/Time: Thursday, March 02, 2017 15:18 - CONCLUSION: No evidence of recent bony injury. Deformity of the lateral left clavicle suggests old healed trauma. Cheo Martínez MD Maxillofacial CT 03/02/17 1342 Signed Impressions: Service Date/Time: Thursday, March 02, 2017 14:52 - CONCLUSION: Negative CT of the facial bones. Cheo Martínez MD Chest CT 03/02/17 1342 Signed Impressions: Service Date/Time: Thursday, March 02, 2017 15:04 - CONCLUSION: 1. Abnormal appearance of the lateral left clavicle suggesting a combination of acute and chronic bony injury. Fracture lucencies without bridging callus is seen the region of the coracoid process. 2. The lungs are clear. No evidence of pneumothorax. 3. Moderate size hiatus hernia. Cheo Martínez MD Cervical Spine CT 03/02/17 1342 Signed Impressions: Service Date/Time: Thursday, March 02, 2017 14:52 - CONCLUSION: Negative CT cervical spine. Cheo Martínez MD Physical Exam HEENT: EOMI Normocephalic; atraumatic; CHEST: Coarse sounds, on vent to trach CARDIAC: RRR ABDOMEN: Soft, distended, tympanitic, diffuse TTP; bowel sounds are present in all four quadrants. Peg site without redness, swelling, drainage EXTREMITIES: No clubbing, cyanosis, BLE 1+ pitting edema, general edema SKIN: Normal; no rash; no jaundice. 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 Findings consistent with moderate adynamic ileus versus partial distal small bowel obstruction. Will hold on SBFT for now - Elevated LFTs/Liver cirrhosis. Pt with hx of alcohol abuse. MELD 25. T. Bili 1.5, AST 159, 88, Alk Phosph 526- likely combination of alcohol abuse on underlying cirrhosis, possible some congestive component. - Coagulopathy. improving PT 12.6, INR 1.1. - Anemia. HH 8.7/26.21. No active bleeding. - Resp. Failure/PNA. Vent per CCM. trach. 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 thalamic CVA. S/P Neuro eval. Lactulose, Xifaxan. - MAXIME with electrolyte abnormalities. Per renal/CCM - Leukocytosis with UTI (S/P Tx), PNA. - CHF, Hx hypothyroidism per CCM PLAN: - hold TF - increase lactulose - supportive care - This pt seen by myself and Dr Whitmore and this note is written on his behalf ( Jackie Styles) Physician Comments Seen and examined. Plan as above. Will follow up with you. (Tegan Whitmore MD) Jackie Styles May 06, 2017 12:43 Tegan Whitmore MD May 06, 2017 14:09
[2017-05-07] VITALS (15 sets, daily range): BP systolic 105–125; BP diastolic 59–71; PULSE 78–94; RESP 18–25; TEMP 97.8–99; O2SAT 95–100
[2017-05-07] MEDS: MIDODRINE 5 MG TAB PO SCH ×3 (06:00→20:11)
[2017-05-07] MEDS: CHLORHEXIDINE 0.12% (ORAL KIT) 15 ML CUP MT SCH ×2 (07:17→20:12)
[2017-05-07] MEDS: ARTIFICIAL TEARS OPTH SOLN 15 ML BTL EACH EYE SCH ×3 (07:52→18:00)
[2017-05-07] MEDS: SODIUM CHLORIDE 0.9% FLUSH 10 ML FLUSH IVF SCH (07:53)
[2017-05-07] MEDS: RESP: COLISTIN 150 MG VIAL NEB SCH ×2 (08:00→21:23)
[2017-05-07] MEDS: RIFAXIMIN 550 MG TAB PO SCH ×2 (08:58→20:11)
[2017-05-07] MEDS: LACTULOSE SYRUP 20 GM/30 ML CUP PO SCH ×2 (08:58→20:10)
[2017-05-07] MEDS: levETIRAcetam 500 MG/5 ML UDC NG SCH ×2 (08:58→20:10)
[2017-05-07] MEDS: MUPIROCIN 2% OINT 1 APPLIC/GM SYR EACH NARE SCH ×2 (08:58→20:12)
[2017-05-07] MEDS: LACTOBACILLUS ACIDOPHILUS TAB PO SCH ×3 (08:58→18:00)
[2017-05-07] MEDS: THIAMINE HCL 100 MG TAB PO SCH (08:58)
[2017-05-07] MEDS: HEPARIN SODIUM - SQ 10,000 UNITS/ML VIAL SQ SCH ×2 (08:58→20:11)
[2017-05-07] MEDS: LANSOPRAZOLE SOLUTAB 30 MG TAB NG SCH (08:59)
[2017-05-07] MEDS: NYSTATIN 100,000 U/GM PWD 15 GM BTL TOPICAL SCH ×2 (08:59→20:12)
[2017-05-07] MEDS: INSULIN NovoLIN REGULAR SUPPLEMENTAL SCALE SQ SCH ×2 (08:59→21:00)
[2017-05-07] MEDS: SODIUM CHLORIDE 0.9% FLUSH 10 ML FLUSH IV FLUSH SCH ×2 (08:59→20:11)
[2017-05-07] MEDS: SODIUM HYPOCHLORITE 0.125% 500 ML BTL TOPICAL SCH (09:00)
--- NOTE | 2017-05-07 14:00 | HHI.HCPN ---
Reason for visit a. To assist with evaluation and management of symptoms including: dyspnea, pain. b. To assist medical decision maker(s) with: better understanding of current medical conditions; weighing benefits/burdens of medical treatment options; making medical treatment decisions. . Subjective/Interval History Patient seen and examined in ICU. No family at bedside. Patient status post PEG tube placement on 04/15/17 and tracheostomy on 04/16/17. Patient currently tolerating T-collar. Patient awake, alert. Following commands and communicating by mouthing words and nodding head to yes/no questions. Patient moving all extremities to command. Patient denies pain or discomfort. Endorsing feeling "full" when asked about abdominal pain. Tube feedings on hold at this time secondary to ileus versus SBO. Afebrile, stable hemodynamically. Most recent lab 05/05/17 showing WBC 10.0, Hgb 8.4, platelet count 156. Sodium 141, potassium 3.7, BUN/creatinine 14/0.27. Albumin 2.0. Abdominal x-ray 05/06/17 consistent with moderate adynamic ileus versus partial distal small bowel obstruction. GI consulted for possible ileus. Patient with episode of vomiting tube feeds on 05/06/17. Tube feeds on hold at this time. Ongoing discharge planning. Likely placement to long-term facility. No family at beside during my visit. Telephone call to patient's daughter Tamanna Sandhu who is currently in custody of [facility] agency. Awaiting return call for medical update. . Family/friend interactions See interval not. . Advance Directives Living Will: Never completed Health Care Surrogate: Never completed Durable Power of Rest Room Maid: Never completed Advance Directive Specifics Health Care Surrogate(s): Margot Nolen is, per [place] statues bam care decision proxy. Now in [facility] (#[phone]). Facilitation of conversations with Tamanna can be arranged through booking (#[phone]) in emergency situations to address goals of care.Ask for a Spicer on staff as shifts rotate throughout the week. Significant change in goals: Goals of care remains unchanged. . Objective Vital Signs Date Time Temp Pulse Resp B/P Pulse Ox O2 Delivery O2 Flow Rate FiO2 05/07/17 10:00 83 05/07/17 08:33 96 T-piece 6.00 28 05/07/17 08:00 87 05/07/17 08:00 98.1 84 20 111/71 05/07/17 06:00 86 05/07/17 04:43 98 T-piece 6.00 28 05/07/17 04:00 84 05/07/17 04:00 99.0 84 25 107/62 99 05/07/17 02:00 94 05/07/17 00:00 94 05/07/17 00:00 99.0 88 24 125/65 05/06/17 22:00 97 05/06/17 20:59 98 T-piece 6.00 28 05/06/17 20:00 101 05/06/17 20:00 98.9 101 23 119/75 96 05/06/17 18:00 106 05/06/17 16:00 98.4 107 23 108/71 97 05/06/17 16:00 107 05/06/17 14:00 106 Intake & Output 05/07/17 05/07/17 07:00 19:00 Intake Total 120 ml Output Total 400 ml Balance -280 ml IV Total 0 ml Other 120 ml Output Urine Total 400 ml # Bowel Movements 4 Physical Exam CONSTITUTIONAL/GENERAL: This is an thin, pale appearing patient, in no apparent distress. O2 via T-collar. TUBES/LINES/DRAINS: Tracheostomy, PEG tube, Johns, SCDs. Bilateral heel boots. SKIN: Ecchymosis bilateral UEs and face. Erythema/rash to forehead and bilateral cheeks. Skin temperature appropriate. CARDIOVASCULAR: Regular rate and rhythm. Edema to upper and lower extremities. RESPIRATORY/CHEST: Symmetric, unlabored breathing. Coarse rhonchi anteriorly. GASTROINTESTINAL: Abdomen round, soft, distended. Positive bowel sounds. GENITOURINARY: Without palpable bladder distension. Johns catheter in place. Erythema groin area, scrotal edema noted. MUSCULOSKELETAL: Generalized edema noted. No mottling or clubbing. Moving bilateral arms to command. Able to reach to face with right arm. NEUROLOGICAL: Awake, alert. Interactive, communicating by nodding head to yes/ no questions and mouthing words. Following commands. PSYCHIATRIC: Awake and alert. Appears calm. . Diagnostic Tests Laboratory Laboratory Tests Test 05/05/17 05:07 White Blood Count 10.0 TH/MM3 (4.0-11.0) Red Blood Count 2.47 MIL/MM3 (4.50-5.90) Hemoglobin 8.4 GM/DL (13.0-17.0) Hematocrit 24.5 % (39.0-51.0) Mean Corpuscular Volume 99.0 FL (80.0-100.0) Mean Corpuscular Hemoglobin 33.9 PG (27.0-34.0) Mean Corpuscular Hemoglobin 34.2 % Concent (32.0-36.0) Red Cell Distribution Width 14.7 % (11.6-17.2) Platelet Count 156 TH/MM3 (150-450) Mean Platelet Volume 8.6 FL (7.0-11.0) Neutrophils (%) (Auto) 79.1 % (16.0-70.0) Lymphocytes (%) (Auto) 13.1 % (9.0-44.0) Monocytes (%) (Auto) 6.1 % (0.0-8.0) Eosinophils (%) (Auto) 1.4 % (0.0-4.0) Basophils (%) (Auto) 0.3 % (0.0-2.0) Neutrophils # (Auto) 7.9 TH/MM3 (1.8-7.7) Lymphocytes # (Auto) 1.3 TH/MM3 (1.0-4.8) Monocytes # (Auto) 0.6 TH/MM3 (0-0.9) Eosinophils # (Auto) 0.1 TH/MM3 (0-0.4) Basophils # (Auto) 0.0 TH/MM3 (0-0.2) CBC Comment DIFF FINAL Differential Comment Sodium Level 141 MEQ/L (136-145) Potassium Level 3.7 MEQ/L (3.5-5.1) Chloride Level 106 MEQ/L (98-107) Carbon Dioxide Level 26.6 MEQ/L (21.0-32.0) Anion Gap 8 MEQ/L (5-15) Blood Urea Nitrogen 14 MG/DL (7-18) Creatinine 0.27 MG/DL (0.60-1.30) Estimat Glomerular Filtration 347 ML/MIN Rate (>89) Random Glucose 114 MG/DL (74-106) Calcium Level 8.1 MG/DL (8.5-10.1) Total Bilirubin 1.2 MG/DL (0.2-1.0) Aspartate Amino Transf 133 U/L (15-37) (AST/SGOT) Alanine Aminotransferase 58 U/L (12-78) (ALT/SGPT) Alkaline Phosphatase 424 U/L (45-117) Total Protein 6.1 GM/DL (6.4-8.2) Albumin 2.0 GM/DL (3.4-5.0) Result Diagram: 05/05/17 0507 05/05/17 0507 Imaging Last 48 hours Impressions Abdomen X-Ray 05/06/17 0000 Signed Impressions: Service Date/Time: Saturday, May 06, 2017 08:09 - CONCLUSION: 1. Findings consistent with moderate adynamic ileus versus partial distal small bowel obstruction. Yang Nash MD Procedures * 04/16/17 -tracheostomy placement * 04/16/17 -endotracheal extubation * 04/15/17 - PEG tube placed. * 03/25/17 -Endotracheal intubation. . Assessment and Plan Disease Oriented Problem List: (1) Sepsis due to Acinetobacter Comment: Sepsis syndrome secondary to pneumonia -MDR Acinetobacter (2) Acute hypoxemic respiratory failure Comment: Remains intubated on mechanical ventilation. 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 Now status post tracheostomy on 04/16/17. Currently tolerating O2 via T collar. (2) Pain 0-10 Scale: 0 Comment: Prolonged hospitalization/bedrest, muscular weakness and atrophy. (3) Debility 0-10 Scale: Unable to quantify Comment: Secondary to acute illness and prolonged hospitalization. Pertinent Non-Medical Issues Psychosocial: 61-year-old with long-standing history of alcohol use and abuse, 1 daughter who is incarcerated in the [facility] detention. Spiritual: No reported. Legal: Daughter Tamanna owen, per [place] [employer] care decision proxy. She is currently incarcerated at [facility]. They are permitting her to participate in decisions at this time. Ethical issues impacting care: As stated above. . Important Contacts * Tamanna Sandhu, daughter/ HCP: Margot Tamanna is, per [place] [employer] care decision proxy. . Now in [facility] (#[phone]). Facilitation of conversations with Tamanna can be arranged through booking (#[phone]) in emergency situations to address goals of care.Ask for a Lucila on staff as shifts rotate throughout the week. * Guillermo Roberts, daughter friend: [phone] (cell)- has frequent contact w Amie - has been very helpful. Prognosis Prognosis: Poor prognosis for meaningful recovery. . Code Status: Full Code Plan * HEALTHCARE DECISION-MAKING: Patient participating in healthcare decision- making. Patient is , according to [place] statutes, health care proxy decision making falls to his only daughter, Tamanna. Now in [facility] (#[phone]). Facilitation of conversations with Tamanna can be arranged through booking (#[phone]) in emergency situations to address goals of care. Ask for a Lucila on staff as shifts rotate throughout the week. * FULL CODE * GOALS OF CARE: As per patient and daughter, goal of therapy is to continue with aggressive management to include trach, PEG and continuation of IV abx. Ongoing discharge planning, will likely need long-term placement. * SYMPTOMS: =Dyspnea: secondary to respiratory failure. Tolerating O2 via T collar. =Debility: Secondary to burden of disease, acute illness and prolonged hospitalization. Improvement and multiple in of extremities noted. Patient not able to reach his face with right arm. =Pain: secondary to prolonged hospitalization, tubes and bedrest. Oxycodone available as needed. * Palliative care attempted to contact patient's daughter Tamanna Sandhu who is in custody of [facility] correction agency, left return phone call for medical update. * Palliative care contact information has been provided to patient's daughter and her boyfriend. * Palliative care will continue to follow further clarifications of goals of care as patient's clinical course evolves. . Time Spent Total Floor Time (mins): 28 (total time to include physical exam, review of medicval records and TC to patient's daughter Tamanna. ) Face to Face Time (mins): 22 >50% Counseling/Coord of Care: Yes Attestation To help prompt me to consider important information that might be impacting today's encounter and assessment, information from prior notes written by myself or my colleagues may have been "brought forward" into today's note. My signature on this note, however, is an attestation that I personally performed the exam, history, and/or decision-making noted today, and, unless otherwise indicated, the interactions with patient, family, and staff as well as the review of records all occurred today. I also attest that the listed assessment and stated plan reflect my best clinical judgment today based on the combination of historical information, prior notes, and today's exam/ interactions. When time spent is documented, it refers only to time spent today by the signer, or if indicated, combined time spent today by collaborating physician/nurse practitioner. Melissa Mcclure May 07, 2017 14:00
--- NOTE | 2017-05-07 14:12 | HHI.GIFU ---
Subjective Remarks P resting in bed, in no apparent distress. Nonverbal but indicates no abdominal pain or n/v. Per RN his belly is softer today and he is having copious BMs. (Jackie Styles) Objective Vitals I&O Vital Signs Date Time Temp Pulse Resp B/P Pulse Ox O2 Delivery O2 Flow Rate FiO2 05/07/17 12:00 81 05/07/17 12:00 98.5 85 18 105/67 05/07/17 10:00 83 05/07/17 08:33 96 T-piece 6.00 28 05/07/17 08:00 87 05/07/17 08:00 98.1 84 20 111/71 05/07/17 06:00 86 05/07/17 04:43 98 T-piece 6.00 28 05/07/17 04:00 84 05/07/17 04:00 99.0 84 25 107/62 99 05/07/17 02:00 94 05/07/17 00:00 94 05/07/17 00:00 99.0 88 24 125/65 05/06/17 22:00 97 05/06/17 20:59 98 T-piece 6.00 28 05/06/17 20:00 101 05/06/17 20:00 98.9 101 23 119/75 96 05/06/17 18:00 106 05/06/17 16:00 98.4 107 23 108/71 97 05/06/17 16:00 107 I/O 05/06/17 05/06/17 05/06/17 05/07/17 05/07/17 05/07/17 07:00 15:00 23:00 07:00 15:00 23:00 Intake Total 322 ml 0 ml 120 ml Output Total 200 ml 550 ml 250 ml Balance 122 ml -550 ml -130 ml IV Total 0 ml 0 ml Tube Feeding 322 ml Other 120 ml Output Urine Total 200 ml 550 ml 250 ml # Bowel Movements 6 2 Imaging Last Impressions Abdomen X-Ray 05/06/17 0000 Signed Impressions: Service Date/Time: Saturday, May 06, 2017 08:09 - CONCLUSION: 1. Findings consistent with moderate adynamic ileus versus partial distal small bowel obstruction. Yang Nash MD Chest X-Ray 04/29/17 0600 Signed Impressions: Service Date/Time: Saturday, April 29, 2017 06:19 - CONCLUSION: No significant change Casper Alva MD Abdomen/Pelvis CT 04/16/17 0000 Signed Impressions: Service Date/Time: Sunday, April 16, 2017 11:26 - CONCLUSION: 1. Cirrhosis and splenomegaly. 2. Ascites 3. Anasarca 4. No pancreas mass identified Yinka Harman MD Liver Ultrasound 04/15/17 0000 Signed Impressions: Service Date/Time: Saturday, April 15, 2017 09:24 - CONCLUSION: 1. Abnormal appearance of the pancreas with a nonspecific hypoechoic area involving the posterior part of the pancreas along the head and body region. Recommend CT scan of the abdomen with oral and IV contrast further evaluation. 2. Fatty infiltration throughout the liver. 3. There is thickening of the gallbladder wall at 6 mm. This is suggestive of chronic gallbladder disease. 4. Small amount of free fluid adjacent to the liver and spleen in the upper abdomen.. 5. Right-sided pleural effusion. Víctor Rosas MD Head CT 04/12/17 0000 Signed Impressions: Service Date/Time: Wednesday, April 12, 2017 21:30 - CONCLUSION: Pontine encephalomalacia. Left mastoiditis. Casper Alva MD Head Magnetic Resonance Angiography 03/28/17 0000 Signed Impressions: Service Date/Time: March 17:22 - CONCLUSION: Unremarkable examination. Bety Castillo MD Brain MRI 03/28/17 0000 Signed Impressions: Service Date/Time: March 17:22 - CONCLUSION: 1. 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 Small subacute ischemic bilateral thalamic infarcts. 2. There has been no significant change when compared to the prior exam. Yinka Harman MD Lower Extremity Ultrasound 03/25/17 0000 Signed Impressions: Service Date/Time: Saturday, March 25, 2017 22:17 - CONCLUSION: No evidence of DVT. Víctor Rosas MD CT Angiography 03/21/17 0000 Signed Impressions: Service Date/Time: March 00:33 - CONCLUSION: No evidence of pulmonary embolism is identified. Mild atelectasis left lung base. Fluid or phlegm within the trachea. Milo Muhammad MD Abdomen Ultrasound 03/20/17 0000 Signed Impressions: Service Date/Time: Monday, March 20, 2017 11:38 - CONCLUSION: 1. Hepatosplenomegaly without focal lesion. 2. Probable sludge within the lumen of the gallbladder. No intrahepatic duct. Cheo Martínez MD Shoulder X-Ray 03/02/17 1404 Signed Impressions: Service Date/Time: Thursday, March 02, 2017 15:18 - CONCLUSION: No evidence of recent bony injury. Deformity of the lateral left clavicle suggests old healed trauma. Cheo Martínez MD Maxillofacial CT 03/02/17 1342 Signed Impressions: Service Date/Time: Thursday, March 02, 2017 14:52 - CONCLUSION: Negative CT of the facial bones. Cheo Martínez MD Chest CT 03/02/17 1342 Signed Impressions: Service Date/Time: Thursday, March 02, 2017 15:04 - CONCLUSION: 1. Abnormal appearance of the lateral left clavicle suggesting a combination of acute and chronic bony injury. Fracture lucencies without bridging callus is seen the region of the coracoid process. 2. The lungs are clear. No evidence of pneumothorax. 3. Moderate size hiatus hernia. Cheo Martínez MD Cervical Spine CT 03/02/17 1342 Signed Impressions: Service Date/Time: Thursday, March 02, 2017 14:52 - CONCLUSION: Negative CT cervical spine. Cheo Martínez MD Physical Exam HEENT: EOMI Normocephalic; atraumatic; CHEST: Coarse sounds, on vent to trach CARDIAC: RRR ABDOMEN: Soft, mildly distended, tympanitic,nontender; bowel sounds are present in all four quadrants. Peg site without redness, swelling, drainage EXTREMITIES: No clubbing, cyanosis, BLE 1+ pitting edema, general edema SKIN: Normal; no rash; no jaundice. 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 copious BMs, abd assessment better today - softer, less distended, nontender xray 05-06-17--> 1. Findings consistent with moderate adynamic ileus versus partial distal small bowel obstruction. Will hold on SBFT for now - Elevated LFTs/Liver cirrhosis. Pt with hx of alcohol abuse. MELD 25. T. Bili 1.5, AST 159, 88, Alk Phosph 526- likely combination of alcohol abuse on underlying cirrhosis, possible some congestive component. - Coagulopathy. improving PT 12.6, INR 1.1. - Anemia. HH 8.7/26.21. No active bleeding. - Resp. Failure/PNA. Vent per CCM. trach. 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 thalamic CVA. S/P Neuro eval. Lactulose, Xifaxan. - MAXIME with electrolyte abnormalities. Per renal/CCM - Leukocytosis with UTI (S/P Tx), PNA. - CHF, Hx hypothyroidism per CCM PLAN: - okay to restart TF - supportive care - GI will sign off, please reconsult if needed - This pt seen by myself and Dr Whitmore and this note is written on his behalf ( Jackie Styles) Physician Comments Plan as above, please notify us if needed. (Tegan Whitmore MD) Jackie Styles May 07, 2017 14:12 Tegan Whitmore MD May 07, 2017 14:33
--- NOTE | 2017-05-07 15:52 | HHI.CCPN ---
Subjective Remarks/Hospital Course This is a 61-year-old male with a past history of alcohol abuse and a prior admission in 2015 for severe life-threatening hyponatremia at that time with a serum sodium of 98. He presents today with what he states is a 13 day history of worsening fatigue and weakness. He is very altered and is very difficult to understand the patient. What I can understand from him, is that at some point during these 13 days he has fallen and hit his face. Otherwise he states he lays on the couch, and has not gotten not much. He states he drinks 1 beer in the morning, and 1 beer in the afternoon. He does endorse taking some Xanax to help him sleep. He denies other drug use. He denies chest pain, shortness of breath, fever, chills, nausea, vomiting, abdominal pain. It is very difficult to get him to answer anymore questions about his medical history. His speech is very slurred and he is trying to talk about how he misses his daughter. Emergency department he was found to have a serum sodium of 99, a bilirubin of 8.9, lactate of 9.8, ammonia of 60, CK of 7000, elevated troponin of 4.9 with a normal MB ratio, creatinine 1.5, serum bicarbonate of 13. His white count is 12 , platelets 112. INR 1.9. His MELD calculates at 26. 4/2: Sodium level rapidly corrected overnight, likely secondary to appropriate correction of severe life-threatening dehydration. NS fluids changed to 1/2NS and correction slowed down significantly. sodium up to 130 this AM. CK downtrending. however, patient remains severely hypotensive requiring Levophed to maintain a map > 65 mmHg. This AM, serum K 1.6 (confirmed). started replacement with 200meq KCl and recheck K. 03/04: persists in vasoplegic distributive shock. afebrile. no evidence of infection. wbc downtrending. persists with severe life-threatening electrolyte derangements. passed swallow eval for nectar thick liquids. sodium stable at 131. ck downtrending. 03/05: persists in distributive shock. echo yesterday with EF 30%, globally decreased function. milrinone added yesterday with improvement in vasopressor requirement. still with multiple electrolyte abnormalities despite very aggressive replacement. very poor appetite. sodium stable at 131, which appears to be around baseline for him, looking back at prior records. also became agitated and delirious yesterday, likely secondary to etoh withdraw. started on Ativan and Librium. 03/06: electrolyte derangements persist. placed on continuous NaPhos infusion x 24h due to severe life-threatening hypophosphatemia. serial K, phos checks. weaning off levophed, milrinone persists. still poor appetite. sodium jumped from 132 to 139, but no significant mental status change, and we did not increase sodium load. 03/07: still requiring high electrolyte replacement. milrinone weaned to 0.375 mcg /kg/min overnight. still doing well with that. delirium persists. 03/08 Remains on milrinone. Electrolyte improving. Remains very lethargic, intermittently follows commands 03/09: Continues to be lethargic but wakes up follows some commands. Remains on milrinone will DC today. T max 100.1, urine output adequate sodium is 143 03/10: More awake alert, ate 50% of break fast. Will DC Dobhoff. Discontinue arterial and central lines. Delirium also improved, remains weak 03/11: doing much better this morning. no complaints. still with poor appetite. electrolytes improved. 03/20: We consulted for respiratory failure. Patient was last seen in room 1415 CMP receiving oral cares and became acutely hypoxic saturations 82% with coarse breath sounds. Halicat called. Patient was placed on a Venturi mask 50 % with desaturations to the mid 90s. He received Solu-Medrol 20 mg IV 1, Lasix 40 mg IV 1 and was transferred IM [facility] 521. Hemodynamically stable. Poor mentation 03/25: Reconsulted due to respiratory failure. Patient with gurgling/ transmitted upper airway sounds. Respiration the 50s. Decision made to orotracheally intubate. Noted to have been febrile with increased O2 course over the past 48 hours. 03/26: Afebrile. Requiring Nimbex drip for ventilator synchrony. Decreased urine output noted. Hemoglobin decreased likely dilutional. Tolerating tube feeding. Electrolytes been replaced. 03/27: Tmax 100.9. Currently 97.2. +6 L past 24 hours. Hemoglobin 8 transfuse overnight. Potassium 3. We'll discontinue Nimbex drip for vent synchrony today. 03/28: Afebrile. Negative fluid balance past 24 hours. Hemoglobin currently 9. Potassium 3.0. Currently on sedation vacation positive gag and otherwise unresponsive. 03/29: Tmax 103. Currently afebrile. Not tolerating tube feeds. Remains on Kiran-Synephrine. Did not tolerate sedation vacation back on Versed at 5 mg an hour fentanyl drip at 100 mcg an hour. One bowel movement. 03/30 Tube feeds remain on hold. On neosynephrine 40 mcg/min, RN states she has been weaning. Having BMs. On Versed 8 mg/hr and fentanyl 100 mcg/hr. 03/31 Off versed. Remains on fentanyl 100 mcg/hr. Having hiccups. Still on neosynephrine 40 mcg/min. Tolerating trickle feeds. Had 2 bowel movements 04/01: no meaningful change. still requires fentanyl for sedation. still on low- dose vasopressors. 04/02: no changes. still on levo @ 7 mcg/min. unable to wean off fentanyl due to tachycardia and tachypnea. 04/03: Off all sedation. On low-dose norepinephrine. Essentially unresponsive on the ventilator. Plan for likely withdrawal of care tomorrow 04/04: Off all sedation. Off all vasopressors. According to overnight RN was following commands. Will open eyes but not following commands this AM. 04/05 No events overnight. Afebrile On no sedation. 04/06: Resting comfortably in bed. Eyes are open. Moving head back and forth continuously. Weakly following commands with his upper and lower extremities. 04/07: Low-grade temperatures overnight. 99.8. Eyes are open. Moving back and forth. Positive BM. Continues to be following commands. 04/08 Patient remains intubated on no sedation awake and follows commands. Tmax 100.8 04/09 Patient remains intubated, tolerated CPAP all day and had good responses in UO with Bumex yesterday. Afebrile. 04/10: Tmax 99.1. Went back on set rate ventilation yesterday. Will attempt PSV trials throughout the day with goal to attempt extubation tomorrow. 04/11: Tmax 100.2. Currently 100.1. Did not tolerate weaning parameters with NIF -9 and unacceptable RSBI. Patient is arousable and follows commands eyes open 04/12: Omayra care reports tonic-clonic seizure activity this AM. Heart rate in the 140s during episode with violent shaking. On examination, patient's eyes are open and at baseline except currently not following commands. 04/13: had 2 seizures this morning, both resolved without medication interventions. Dr. Fabrizio navas'd at bedside earlier and ordered Cerebyx load. no other changes. plan for trach/peg next week 04/14: still having breakthrough seizures on repeat EEG despite Cerebyx and Keppra. plan for PEG tomorrow. 04/15 No events overnight. Remains intubated. On no sedation. For PEG tube placement today. T:101.2 last night. 04/16 Patient remains intubated. For trach this afternoon. s/p PEG tube placement yesterday. Spiked fever with T:102.5 last night. 04/17 Patient s/p trach yesterday. T: 100.3 at midnight. 04/18 Continues to have low-grade fever. No change in mental status. Sputum Pseudomonas pansensitive. No seizures reported in the last 24 hours 04/19: No fever reported. Slightly more awake and was commands on right upper extremity by squeezing hands very weakly. On CPAP 15/04. Slightly tachypneic 04/20: WBC count slightly elevated today, tachypnea on CPAP. Continues to follow commands weakly on right hand. Intermittently about to wiggle toes. Slight increase in white count to 13,000. Tmax 100.9 ID following 04/21: Tolerated only 1 hour CPAP yesterday. Unable to reduce pressure support. Tmax 99.9 04/22: Remains on mechanical ventilation via tracheostomy. Tolerated C Pap trial for 1 hour yesterday. 04/23: Remains on mechanical ventilation via tracheostomy. Daily C Pap trials ongoing. Tolerating tube feeds. 04/24: Afebrile. Copious edema//swelling extremities. Decreased urine output noted. Remains on mechanical ventilation via trach acid. Daily C Pap trials ongoing. Positive BM. 04/25: Tmax 99.5. With copious edema. Will give 1 additional dose of Bumex today after albumin. Remains on ventilator via tracheostomy. Ongoing CPAP trials. 04/26: Tmax 100. Diuresed yesterday. Remains on ventilator via tracheostomy. Positive BM. 04/27: Diuresed well yesterday. Tolerating CPAP trials 4 hours today. Positive BM. Awake and interactive. Subjective: 04/28: Decreased urine output noted today. Low-grade temperature 99.3. Tolerating CPAP trials for the past 24 hours currently at 18/5 at 40%. 04/29: Awake and alert. Tolerating C Pap trials. 04/30: Drowsy, easily arousable. Tolerating C Pap trials. 05/01: Drowsy, arousable, tolerating C Pap trials. 05/02: Awake and alert. On mechanical ventilation via tracheostomy. Daily C Pap trials ongoing. 05/03: Awake, alert. On mechanical ventilation via tracheostomy. Tolerating C Pap trials. Had episode of emesis last night. 05/04: Awake and alert. Placed on T piece this morning. Resting comfortably. Tolerating tube feeds. 05/05: Awake and alert. Following commands. On T piece all day yesterday. Rested on vent last night. Back on T piece this morning. 05/06: Awake and alert. Remains on T piece. Abdominal distention noted. KUB shows dilated bowel loops. Tube feeds held. 05/07: Awake and alert. Abdominal distentions somewhat improved. Tube feeds being resumed by GI. Having copious bowel movements since increasing lactulose. Objective Vital Signs Date Time Temp Pulse Resp B/P Pulse Ox O2 Delivery O2 Flow Rate FiO2 05/07/17 12:00 81 05/07/17 12:00 98.5 18 105/67 05/07/17 08:33 96 T-piece 6.00 28 Intake and Output 05/06/17 05/06/17 05/07/17 08:00 16:00 00:00 Intake Total 322 ml 0 ml Output Total 200 ml 550 ml Balance 122 ml -550 ml Result Diagram: 05/05/17 0507 05/05/17 0507 Imaging Last Impressions Chest X-Ray 04/28/17 0600 Signed Impressions: Service Date/Time: Friday, April 28, 2017 04:27 - CONCLUSION: 1. Bilateral basilar and perihilar air space disease slightly improved on the right. No significant effusion. Tracheostomy in satisfactory position Miguel Looney MD Abdomen/Pelvis CT 04/16/17 0000 Signed Impressions: Service Date/Time: Sunday, April 16, 2017 11:26 - CONCLUSION: 1. Cirrhosis and splenomegaly. 2. Ascites 3. Anasarca 4. No pancreas mass identified Yinka Harman MD Liver Ultrasound 04/15/17 0000 Signed Impressions: Service Date/Time: Saturday, April 15, 2017 09:24 - CONCLUSION: 1. Abnormal appearance of the pancreas with a nonspecific hypoechoic area involving the posterior part of the pancreas along the head and body region. Recommend CT scan of the abdomen with oral and IV contrast further evaluation. 2. Fatty infiltration throughout the liver. 3. There is thickening of the gallbladder wall at 6 mm. This is suggestive of chronic gallbladder disease. 4. Small amount of free fluid adjacent to the liver and spleen in the upper abdomen.. 5. Right-sided pleural effusion. Víctor Rosas MD Abdomen X-Ray 04/13/17 0000 Signed Impressions: Service Date/Time: Thursday, April 13, 2017 10:36 - CONCLUSION: Dobbhoff tip in distal stomach. No evidence of obstruction. Logan Morgan MD Head CT 04/12/17 0000 Signed Impressions: Service Date/Time: Wednesday, April 12, 2017 21:30 - CONCLUSION: Pontine encephalomalacia. Left mastoiditis. Casper Alva MD Head Magnetic Resonance Angiography 03/28/17 0000 Signed Impressions: Service Date/Time: March 17:22 - CONCLUSION: Unremarkable examination. Bety Castillo MD Brain MRI 03/28/17 0000 Signed Impressions: Service Date/Time: March 17:22 - CONCLUSION: 1. 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 Small subacute ischemic bilateral thalamic infarcts. 2. There has been no significant change when compared to the prior exam. Yinka Harman MD Lower Extremity Ultrasound 03/25/17 0000 Signed Impressions: Service Date/Time: Saturday, March 25, 2017 22:17 - CONCLUSION: No evidence of DVT. Víctor Rosas MD CT Angiography 03/21/17 0000 Signed Impressions: Service Date/Time: March 00:33 - CONCLUSION: No evidence of pulmonary embolism is identified. Mild atelectasis left lung base. Fluid or phlegm within the trachea. Milo Muhammad MD Abdomen Ultrasound 03/20/17 0000 Signed Impressions: Service Date/Time: Monday, March 20, 2017 11:38 - CONCLUSION: 1. Hepatosplenomegaly without focal lesion. 2. Probable sludge within the lumen of the gallbladder. No intrahepatic duct. Cheo Martínez MD Shoulder X-Ray 03/02/17 1404 Signed Impressions: Service Date/Time: Thursday, March 02, 2017 15:18 - CONCLUSION: No evidence of recent bony injury. Deformity of the lateral left clavicle suggests old healed trauma. Cheo Martínez MD Maxillofacial CT 03/02/17 1342 Signed Impressions: Service Date/Time: Thursday, March 02, 2017 14:52 - CONCLUSION: Negative CT of the facial bones. Cheo Martínez MD Chest CT 03/02/17 1342 Signed Impressions: Service Date/Time: Thursday, March 02, 2017 15:04 - CONCLUSION: 1. Abnormal appearance of the lateral left clavicle suggesting a combination of acute and chronic bony injury. Fracture lucencies without bridging callus is seen the region of the coracoid process. 2. The lungs are clear. No evidence of pneumothorax. 3. Moderate size hiatus hernia. Cheo Martínez MD Cervical Spine CT 03/02/17 1342 Signed Impressions: Service Date/Time: Thursday, March 02, 2017 14:52 - CONCLUSION: Negative CT cervical spine. Cheo Martínez MD Objective Remarks GENERAL: 61-year-old chronically ill appearing male HEENT: Healing abrasion left side scalp. TIMOTHY. Scleral icterus. Poor dentition. NECK: Trachea Midline, Trach without bleed RESP: On T piece currently, Coarse breath sounds bilaterally. No wheezing or crackles. CARDIOVASCULAR: Tachycardia, RR. S1, S2. No S4. ABDOMEN: Distended, firm, vague tenderness, no guarding, bowel sounds sluggish. G-tube is clear dry and intact : Johns in place with conrad urine output. mild/moderate scrotal edema. MUSCULOSKELETAL: No obvious deformity. 1+ to 2+ edema all extremities NEUROLOGICAL: Awake and alert, following commands. Grade 3 power in upper extremities distally. Can wiggle his toes. A/P Assessment and Plan Neuro/Psych: Osmotic demyelination syndrome Acute toxic metabolic encephalopathy secondary to hypercarbic respiratory failure Alcohol dependence Seizures (History of EtOH induced seizure withdrawal) Chronic benzodiazepine use Bilateral thalamic CVA Off all sedation. oxycodone 5 mg every 4 hours as needed for pain. Ativan 0.5 mg PRN for sz MRI 03/21 - findings consistent with Osmotic demyelination syndrome. ODS most likely from rapid correction of Na, with underlying alcoholism. ( Patient was profoundly hypotensive in shock requiring multiple pressors at that time) MRI brain 03/28 revealed subacute bilateral thalamic lacunar infarcts, ODS. CT head 03/05 revealed no acute intracranial findings Continue thiamine 100 mg daily Seen by neurology/Dr. Mazariegos. EEG previously with persistent. continue Keppra 1000mg BID Respiratory: Acute hypoxemic hypercapnic respiratory failure Spontaneous breathing trials daily. Tolerating T piece since morning on 05/04. Continue T piece as tolerated. Ventilator bundle, s/p trach 04/16 Bronchodilator therapy every 6 hours and as needed Pulm toilet, trach care. Cardiovascular: Chronic Systolic heart failure Echocardiogram 03/04 revealed EF 35-40%. Mild MR. Left atrium dilated. JANE 33 mmHg s/p hydrocortisone. Continue midodrine 10 mg 3 times Monitor HR and BP keep MAP>65mmHg Renal/FEN: Acute Kidney Injury Rhabdomyolysis- resolved ODS-see neuro Hypernatremia - resolving Monitor renal function, I/O's, electrolytes replacement per protocol. DC D5/12/03 NS 04/21 GI: EtOH cirrhosis Hyperammonemia Hiatal hernia Sigmoid diverticulosis Hypoalbuminemia Tube feeds via PEG tube-(Jevity 1.5 with goal rate 60ml/hr). Tube feeds held on 05/06 due to increasing abdominal distention, KUB revealed dilated bowel loops. GI consult requested on 05/06. Lactulose increased with good response copious bowel movements and decrease in abdominal distention. Tube feeds being resumed on 05/07. s/p PEG tube placement 04/15 CT abdomen/pelvis 04/16: Cirrhosis of liver, splenomegaly, anasarca, ascites(mild ) On Xifaxan 550 twice a day/lactulose 30 twice a day. US Liver 04/15: Abnormal appearance of the pancreas with a nonspecific hypoechoic area involving the posterior part of the pancreas along the head and body region. Fatty infiltration throughout the liver. There is thickening of the gallbladder wall at 6 mm. Suggestive of chronic gallbladder disease. Small amount of free fluid adjacent to the liver and spleen in the upper abdomen. Right-sided pleural effusion. 03/20 Ultrasound liver-hepatosplenomegaly. Sludge in gallbladder Prevacid Heme: Leukocytosis Macrocytic anemia - now normocytic Monitor CBC. No indications for transfusion of blood proximally postop B12 1452, Folate 15.2. TSH 0.8. ID: Aspiration pneumonia, PSAE in sputum Escherichia coli UTI 03/11 - completed therapy Acinetobacter pneumonia Pertinent cultures 04/29 - MDR Acinetobacter 04/26 - urine -C. albicans 04/15 Sputum cx: PSAE 04/15 urine cx: Klebsiella 04/15 BC: NGTD 04/12 BC: NGTD 04/08 - blood cultures 2 - no growth 04/08 - sputum - no growth 04/05 - urine -C GLABRATA AND C. ALBICANS 03/29 - blood cultures 2 - NGTD 03/25 - sputum --Acinetobacter. 03/25 - urine - NGTD 03/25 - blood cultures 2 -no growth 03/22 - urine - no growth 03/22 - blood cultures 2 - negative 03/20 - blood cultures 2 - no growth 03/11 - urine - Escherichia coli 03/02 - blood cultures 2 - no growth Followed by Dr. Lisa/ID. Changed Zosyn to cefepime 04/17 Levaquin started 04/20/17 by ID. Complete therapy by 04/30/17 Started Diflucan 100 daily 04/26 for C. albicans funguria - to complete 7 days of therapy Off Flagyl po 03/24 Procalcitonin level: 0.40, C-diff PCR negative 04/10 Colistin nebs for MDRO Acinetobacter in sputum 04/29 Endocrine: Hyperglycemia of critical illness History of hypothyroidism SSI with Accu-Cheks every 4 hours to maintain euglycemia MSK: History of old left clavicle fracture PT/OT evaluate and treat Access Peripheral IV. Prophylaxis: GI -Prevacid DVT - SCD/heparin subcutaneous Palliative care is following code status changed to full code per daughter's request. Tamanna Sandhu, daughter/ HCP: from [facility] [phone] now confirmed transferred to [facility] in [place] facility ) Code status -full code CM working on LTAC placement Level 3 Elliott Rock MD May 07, 2017 15:52
[2017-05-08] VITALS (22 sets, daily range): BP systolic 99–126; BP diastolic 57–81; PULSE 72–89; RESP 18–30; TEMP 97.7–98.2; O2SAT 89–99
[2017-05-08 05:40] LABS: AUTOMATED NEUTROPHIL # 7.5 TH/MM3 (1.8-7.7); BASOPHIL % 0.5 % (0.0-2.0); EOSINOPHIL # 0.1 TH/MM3 (0-0.4); HEMATOCRIT 27.6 % (39.0-51.0); HEMO FLAGS DIFF FINAL; LYMPH % 14.8 % (9.0-44.0); LYMPHOCYTE # 1.4 TH/MM3 (1.0-4.8); MEAN CELL VOLUME 98.6 FL (80.0-100.0); MEAN CORPUSCULAR HEMOGLOBIN 33.4 PG (27.0-34.0); MEAN CORPUSCULAR HGB CONC 33.8 % (32.0-36.0); MONO % 5.6 % (0.0-8.0); NEUT % 78.1 % (16.0-70.0); PLATELET COUNT 165 TH/MM3 (150-450); RED CELL DISTRIBUTION WIDTH 14.9 % (11.6-17.2); WHITE BLOOD COUNT 9.6 TH/MM3 (4.0-11.0)
[2017-05-08] MEDS: MIDODRINE 5 MG TAB PO SCH ×3 (05:44→20:57)
[2017-05-08 06:06] LABS: ALT (GPT) 46 U/L (12-78); ANION GAP 9 MEQ/L (5-15); AST (GOT) 113 U/L (15-37); BICARBONATE 26.1 MEQ/L (21.0-32.0); BLOOD UREA NITROGEN 9 MG/DL (7-18); CHLORIDE 107 MEQ/L (98-107); GLOMERULAR FILTRATION RATE 634 ML/MIN (>89); MAGNESIUM 1.7 MG/DL (1.5-2.5); POTASSIUM 3.6 MEQ/L (3.5-5.1); SODIUM (NA) 142 MEQ/L (136-145)
[2017-05-08 06:08] LABS: ALKALINE PHOSPHATASE 361 U/L (45-117); TOTAL BILIRUBIN ADULT 1.6 MG/DL (0.2-1.0)
[2017-05-08] MEDS: RESP: COLISTIN 150 MG VIAL NEB SCH ×2 (08:20→20:43)
[2017-05-08] MEDS: ARTIFICIAL TEARS OPTH SOLN 15 ML BTL EACH EYE SCH ×3 (08:29→17:14)
[2017-05-08] MEDS: SODIUM HYPOCHLORITE 0.125% 500 ML BTL TOPICAL SCH (08:30)
[2017-05-08] MEDS: levETIRAcetam 500 MG/5 ML UDC NG SCH ×2 (08:30→20:55)
[2017-05-08] MEDS: MUPIROCIN 2% OINT 1 APPLIC/GM SYR EACH NARE SCH ×2 (08:30→20:58)
[2017-05-08] MEDS: NYSTATIN 100,000 U/GM PWD 15 GM BTL TOPICAL SCH ×2 (08:30→20:59)
[2017-05-08] MEDS: THIAMINE HCL 100 MG TAB PO SCH (08:31)
[2017-05-08] MEDS: LACTOBACILLUS ACIDOPHILUS TAB PO SCH ×3 (08:31→17:14)
[2017-05-08] MEDS: RIFAXIMIN 550 MG TAB PO SCH ×2 (08:31→20:57)
[2017-05-08] MEDS: HEPARIN SODIUM - SQ 10,000 UNITS/ML VIAL SQ SCH ×2 (08:31→20:57)
[2017-05-08] MEDS: LANSOPRAZOLE SOLUTAB 30 MG TAB NG SCH (08:31)
[2017-05-08] MEDS: LACTULOSE SYRUP 20 GM/30 ML CUP PO SCH ×2 (08:32→20:55)
[2017-05-08] MEDS: CHLORHEXIDINE 0.12% (ORAL KIT) 15 ML CUP MT SCH ×2 (08:33→20:00)
[2017-05-08] MEDS: SODIUM CHLORIDE 0.9% FLUSH 10 ML FLUSH IVF SCH (08:33)
[2017-05-08] MEDS: INSULIN NovoLIN REGULAR SUPPLEMENTAL SCALE SQ SCH ×2 (09:00→21:00)
[2017-05-08] MEDS: SODIUM CHLORIDE 0.9% FLUSH 10 ML FLUSH IV FLUSH SCH ×2 (09:00→20:56)
[2017-05-08] MEDS: DEXT 5%-NACL 0.9% 1000 ML INJ 1,000 ML IV SCH (16:00)
--- NOTE | 2017-05-08 16:57 | RADRPT ---
EXAM DATE/TIME: 05/08/2017 15:30 [place] COMPARISON: ABDOMEN KUB ONLY, May 06, 2017, 8:09. INDICATIONS : Abdominal pain and distention. MEDICAL HISTORY : Unobtainable. SURGICAL HISTORY : Unobtainable. ENCOUNTER: Subsequent ACUITY: 1 month PAIN SCORE: Non-responsive. LOCATION: Abdomen FINDINGS: There is gas throughout multiple loops of small and large bowel. There is gas and stool seen within t he colon. No definite findings to suggest small bowel obstruction identified. The osseous structures are grossly intact. No organomegaly is evident. CONCLUSION: 1. There is diffuse, mild gaseous distention of the small bowel. No findings to indicate obstruction. Mihir Harry MD on May 08, 2017 at 16:55 Board Certified Radiologist. This report was verified electronically.
--- NOTE | 2017-05-08 17:01 | HHI.GIFU ---
Subjective Remarks Pt resting in bed, in no acute distress. Nonverbal but indicates no abdominal pain except during TF. Denies nausea. Per RN he was indicating that he wanted her to stop TF earlier and did not want to resume TF. He is having copious bowel movements. Objective Vitals I&O Vital Signs Date Time Temp Pulse Resp B/P Pulse Ox O2 Delivery O2 Flow Rate FiO2 05/08/17 16:00 81 05/08/17 16:00 98.0 81 22 120/69 96 05/08/17 15:00 78 05/08/17 15:00 78 18 126/69 97 05/08/17 14:00 82 19 125/71 05/08/17 14:00 82 05/08/17 13:00 76 18 117/65 97 05/08/17 13:00 76 05/08/17 12:00 98.2 77 18 113/66 05/08/17 12:00 77 05/08/17 11:00 82 23 119/64 96 05/08/17 11:00 82 05/08/17 10:00 77 05/08/17 10:00 77 19 108/64 95 05/08/17 09:01 79 28 119/65 96 05/08/17 09:00 78 05/08/17 08:21 95 T-piece 6.00 28 05/08/17 08:00 97.9 72 20 107/64 89 05/08/17 08:00 72 05/08/17 07:00 78 05/08/17 07:00 76 20 118/68 94 05/08/17 06:00 85 30 126/81 89 05/08/17 06:00 73 05/08/17 05:00 86 20 99/60 92 05/08/17 04:00 83 05/08/17 04:00 97.7 89 21 99/57 94 05/08/17 02:00 86 05/08/17 00:00 87 05/08/17 00:00 97.8 87 20 103/57 92 05/07/17 22:00 85 05/07/17 21:55 95 T-piece 6.00 28 05/07/17 20:00 79 05/07/17 20:00 97.8 80 21 105/59 95 05/07/17 18:00 84 I/O 6/605/07/17 05/07/17 05/08/17 05/08/17 05/08/17 07:00 15:00 23:00 07:00 15:00 23:00 Intake Total 120 ml 318 ml 120 ml 120 ml Output Total 250 ml 300 ml 200 ml 200 ml 250 ml Balance -130 ml -300 ml 118 ml -80 ml -130 ml IV Total 0 ml 0 ml 0 ml Tube Feeding 198 ml 0 ml 0 ml Other 120 ml 120 ml 120 ml 120 ml Output Urine Total 250 ml 300 ml 200 ml 200 ml 250 ml # Bowel Movements 2 4 1 1 1 Laboratory Laboratory Tests Test 05/08/17 04:45 White Blood Count 9.6 Red Blood Count 2.80 Hemoglobin 9.3 Hematocrit 27.6 Mean Corpuscular Volume 98.6 Mean Corpuscular Hemoglobin 33.4 Mean Corpuscular Hemoglobin 33.8 Concent Red Cell Distribution Width 14.9 Platelet Count 165 Mean Platelet Volume 8.2 Neutrophils (%) (Auto) 78.1 Lymphocytes (%) (Auto) 14.8 Monocytes (%) (Auto) 5.6 Eosinophils (%) (Auto) 1.0 Basophils (%) (Auto) 0.5 Neutrophils # (Auto) 7.5 Lymphocytes # (Auto) 1.4 Monocytes # (Auto) 0.5 Eosinophils # (Auto) 0.1 Basophils # (Auto) 0.0 CBC Comment DIFF FINAL Differential Comment Sodium Level 142 Potassium Level 3.6 Chloride Level 107 Carbon Dioxide Level 26.1 Anion Gap 9 Blood Urea Nitrogen 9 Creatinine 0.16 Estimat Glomerular Filtration 634 Rate Random Glucose 84 Calcium Level 8.5 Magnesium Level 1.7 Total Bilirubin 1.6 Aspartate Amino Transf 113 (AST/SGOT) Alanine Aminotransferase 46 (ALT/SGPT) Alkaline Phosphatase 361 Total Protein 6.1 Albumin 2.0 Imaging Last Impressions Abdomen X-Ray 05/06/17 0000 Signed Impressions: Service Date/Time: Saturday, May 06, 2017 08:09 - CONCLUSION: 1. Findings consistent with moderate adynamic ileus versus partial distal small bowel obstruction. Yang Nash MD Chest X-Ray 04/29/17 0600 Signed Impressions: Service Date/Time: Saturday, April 29, 2017 06:19 - CONCLUSION: No significant change Casper Alva MD Abdomen/Pelvis CT 04/16/17 0000 Signed Impressions: Service Date/Time: Sunday, April 16, 2017 11:26 - CONCLUSION: 1. Cirrhosis and splenomegaly. 2. Ascites 3. Anasarca 4. No pancreas mass identified Yinka Harman MD Liver Ultrasound 04/15/17 0000 Signed Impressions: Service Date/Time: Saturday, April 15, 2017 09:24 - CONCLUSION: 1. Abnormal appearance of the pancreas with a nonspecific hypoechoic area involving the posterior part of the pancreas along the head and body region. Recommend CT scan of the abdomen with oral and IV contrast further evaluation. 2. Fatty infiltration throughout the liver. 3. There is thickening of the gallbladder wall at 6 mm. This is suggestive of chronic gallbladder disease. 4. Small amount of free fluid adjacent to the liver and spleen in the upper abdomen.. 5. Right-sided pleural effusion. Víctor Rosas MD Head CT 04/12/17 0000 Signed Impressions: Service Date/Time: Wednesday, April 12, 2017 21:30 - CONCLUSION: Pontine encephalomalacia. Left mastoiditis. Casper Alva MD Head Magnetic Resonance Angiography 03/28/17 0000 Signed Impressions: Service Date/Time: March 17:22 - CONCLUSION: Unremarkable examination. K. Bijan Castillo MD Brain MRI 03/28/17 0000 Signed Impressions: Service Date/Time: March 17:22 - CONCLUSION: 1. 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 Small subacute ischemic bilateral thalamic infarcts. 2. There has been no significant change when compared to the prior exam. Yinka Harman MD Lower Extremity Ultrasound 03/25/17 0000 Signed Impressions: Service Date/Time: Saturday, March 25, 2017 22:17 - CONCLUSION: No evidence of DVT. Víctor Rosas MD CT Angiography 03/21/17 0000 Signed Impressions: Service Date/Time: March 00:33 - CONCLUSION: No evidence of pulmonary embolism is identified. Mild atelectasis left lung base. Fluid or phlegm within the trachea. Milo Muhammad MD Abdomen Ultrasound 03/20/17 0000 Signed Impressions: Service Date/Time: Monday, March 20, 2017 11:38 - CONCLUSION: 1. Hepatosplenomegaly without focal lesion. 2. Probable sludge within the lumen of the gallbladder. No intrahepatic duct. Cheo Martínez MD Shoulder X-Ray 03/02/17 1404 Signed Impressions: Service Date/Time: Thursday, March 02, 2017 15:18 - CONCLUSION: No evidence of recent bony injury. Deformity of the lateral left clavicle suggests old healed trauma. Cheo Martínez MD Maxillofacial CT 03/02/17 1342 Signed Impressions: Service Date/Time: Thursday, March 02, 2017 14:52 - CONCLUSION: Negative CT of the facial bones. Cheo Martínez MD Chest CT 03/02/17 1342 Signed Impressions: Service Date/Time: Thursday, March 02, 2017 15:04 - CONCLUSION: 1. Abnormal appearance of the lateral left clavicle suggesting a combination of acute and chronic bony injury. Fracture lucencies without bridging callus is seen the region of the coracoid process. 2. The lungs are clear. No evidence of pneumothorax. 3. Moderate size hiatus hernia. Cheo Martínez MD Cervical Spine CT 03/02/17 1342 Signed Impressions: Service Date/Time: Thursday, March 02, 2017 14:52 - CONCLUSION: Negative CT cervical spine. Cheo Martínez MD Physical Exam HEENT: EOMI Normocephalic; atraumatic; CHEST: Coarse sounds, on vent to trach CARDIAC: RRR ABDOMEN: Soft, mildly distended, tympanitic,nontender; bowel sounds are present in all four quadrants. Peg site without redness, swelling, drainage, no TTP site. EXTREMITIES: No clubbing, cyanosis, BLE 1+ pitting edema, general edema SKIN: Normal; no rash; no jaundice. [employer]: awake, cooperative with exam Assessment and Plan Plan ASSESSMENT: - abd pain - during TF only. PEG site looks good and pt denies pain on palpation PEG site, abd. KUB pending. Consider CT abd tomorrow. If neg consider EGD. - possible ileus - improving. copious BMs, abd assessment better today - softer, less distended, nontender xray 05-06-17--> 1. Findings consistent with moderate adynamic ileus versus partial distal small bowel obstruction. Will hold on SBFT for now - Elevated LFTs/Liver cirrhosis. Pt with hx of alcohol abuse. MELD 25. T. Bili 1.5, AST 159, 88, Alk Phosph 526- likely combination of alcohol abuse on underlying cirrhosis, possible some congestive component. - Coagulopathy. improving PT 12.6, INR 1.1. - Anemia. HH 8.7/26.21. No active bleeding. - Resp. Failure/PNA. Vent per CCM. trach. 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 thalamic CVA. S/P Neuro eval. Lactulose, Xifaxan. - MAXIME with electrolyte abnormalities. Per renal/CCM - Leukocytosis with UTI (S/P Tx), PNA. - CHF, Hx hypothyroidism per CCM PLAN: - hold TF - await KUB - consider CT abd - supportive care - further recommendations based on results above - This pt seen by myself and Dr Whitmore and this note is written on his behalf Jackie Styles May 08, 2017 17:01
--- NOTE | 2017-05-08 17:26 | HHI.CCPN ---
Subjective Remarks/Hospital Course This is a 61-year-old male with a past history of alcohol abuse and a prior admission in 2015 for severe life-threatening hyponatremia at that time with a serum sodium of 98. He presents today with what he states is a 13 day history of worsening fatigue and weakness. He is very altered and is very difficult to understand the patient. What I can understand from him, is that at some point during these 13 days he has fallen and hit his face. Otherwise he states he lays on the couch, and has not gotten not much. He states he drinks 1 beer in the morning, and 1 beer in the afternoon. He does endorse taking some Xanax to help him sleep. He denies other drug use. He denies chest pain, shortness of breath, fever, chills, nausea, vomiting, abdominal pain. It is very difficult to get him to answer anymore questions about his medical history. His speech is very slurred and he is trying to talk about how he misses his daughter. Emergency department he was found to have a serum sodium of 99, a bilirubin of 8.9, lactate of 9.8, ammonia of 60, CK of 7000, elevated troponin of 4.9 with a normal MB ratio, creatinine 1.5, serum bicarbonate of 13. His white count is 12 , platelets 112. INR 1.9. His MELD calculates at 26. 4/2: Sodium level rapidly corrected overnight, likely secondary to appropriate correction of severe life-threatening dehydration. NS fluids changed to 1/2NS and correction slowed down significantly. sodium up to 130 this AM. CK downtrending. however, patient remains severely hypotensive requiring Levophed to maintain a map > 65 mmHg. This AM, serum K 1.6 (confirmed). started replacement with 200meq KCl and recheck K. 03/04: persists in vasoplegic distributive shock. afebrile. no evidence of infection. wbc downtrending. persists with severe life-threatening electrolyte derangements. passed swallow eval for nectar thick liquids. sodium stable at 131. ck downtrending. 03/05: persists in distributive shock. echo yesterday with EF 30%, globally decreased function. milrinone added yesterday with improvement in vasopressor requirement. still with multiple electrolyte abnormalities despite very aggressive replacement. very poor appetite. sodium stable at 131, which appears to be around baseline for him, looking back at prior records. also became agitated and delirious yesterday, likely secondary to etoh withdraw. started on Ativan and Librium. 03/06: electrolyte derangements persist. placed on continuous NaPhos infusion x 24h due to severe life-threatening hypophosphatemia. serial K, phos checks. weaning off levophed, milrinone persists. still poor appetite. sodium jumped from 132 to 139, but no significant mental status change, and we did not increase sodium load. 03/07: still requiring high electrolyte replacement. milrinone weaned to 0.375 mcg /kg/min overnight. still doing well with that. delirium persists. 03/08 Remains on milrinone. Electrolyte improving. Remains very lethargic, intermittently follows commands 03/09: Continues to be lethargic but wakes up follows some commands. Remains on milrinone will DC today. T max 100.1, urine output adequate sodium is 143 03/10: More awake alert, ate 50% of break fast. Will DC Dobhoff. Discontinue arterial and central lines. Delirium also improved, remains weak 03/11: doing much better this morning. no complaints. still with poor appetite. electrolytes improved. 03/20: We consulted for respiratory failure. Patient was last seen in room 1415 CMP receiving oral cares and became acutely hypoxic saturations 82% with coarse breath sounds. Halicat called. Patient was placed on a Venturi mask 50 % with desaturations to the mid 90s. He received Solu-Medrol 20 mg IV 1, Lasix 40 mg IV 1 and was transferred IM [id number]. Hemodynamically stable. Poor mentation 03/25: Reconsulted due to respiratory failure. Patient with gurgling/ transmitted upper airway sounds. Respiration the 50s. Decision made to orotracheally intubate. Noted to have been febrile with increased O2 course over the past 48 hours. 03/26: Afebrile. Requiring Nimbex drip for ventilator synchrony. Decreased urine output noted. Hemoglobin decreased likely dilutional. Tolerating tube feeding. Electrolytes been replaced. 03/27: Tmax 100.9. Currently 97.2. +6 L past 24 hours. Hemoglobin 8 transfuse overnight. Potassium 3. We'll discontinue Nimbex drip for vent synchrony today. 03/28: Afebrile. Negative fluid balance past 24 hours. Hemoglobin currently 9. Potassium 3.0. Currently on sedation vacation positive gag and otherwise unresponsive. 03/29: Tmax 103. Currently afebrile. Not tolerating tube feeds. Remains on Kiran-Synephrine. Did not tolerate sedation vacation back on Versed at 5 mg an hour fentanyl drip at 100 mcg an hour. One bowel movement. 03/30 Tube feeds remain on hold. On neosynephrine 40 mcg/min, RN states she has been weaning. Having BMs. On Versed 8 mg/hr and fentanyl 100 mcg/hr. 03/31 Off versed. Remains on fentanyl 100 mcg/hr. Having hiccups. Still on neosynephrine 40 mcg/min. Tolerating trickle feeds. Had 2 bowel movements 04/01: no meaningful change. still requires fentanyl for sedation. still on low- dose vasopressors. 04/02: no changes. still on levo @ 7 mcg/min. unable to wean off fentanyl due to tachycardia and tachypnea. 04/03: Off all sedation. On low-dose norepinephrine. Essentially unresponsive on the ventilator. Plan for likely withdrawal of care tomorrow 04/04: Off all sedation. Off all vasopressors. According to overnight RN was following commands. Will open eyes but not following commands this AM. 04/05 No events overnight. Afebrile On no sedation. 04/06: Resting comfortably in bed. Eyes are open. Moving head back and forth continuously. Weakly following commands with his upper and lower extremities. 04/07: Low-grade temperatures overnight. 99.8. Eyes are open. Moving back and forth. Positive BM. Continues to be following commands. 04/08 Patient remains intubated on no sedation awake and follows commands. Tmax 100.8 04/09 Patient remains intubated, tolerated CPAP all day and had good responses in UO with Bumex yesterday. Afebrile. 04/10: Tmax 99.1. Went back on set rate ventilation yesterday. Will attempt PSV trials throughout the day with goal to attempt extubation tomorrow. 04/11: Tmax 100.2. Currently 100.1. Did not tolerate weaning parameters with NIF -9 and unacceptable RSBI. Patient is arousable and follows commands eyes open 04/12: Omayra care reports tonic-clonic seizure activity this AM. Heart rate in the 140s during episode with violent shaking. On examination, patient's eyes are open and at baseline except currently not following commands. 04/13: had 2 seizures this morning, both resolved without medication interventions. Dr. Fabrizio navas'd at bedside earlier and ordered Cerebyx load. no other changes. plan for trach/peg next week 04/14: still having breakthrough seizures on repeat EEG despite Cerebyx and Keppra. plan for PEG tomorrow. 04/15 No events overnight. Remains intubated. On no sedation. For PEG tube placement today. T:101.2 last night. 04/16 Patient remains intubated. For trach this afternoon. s/p PEG tube placement yesterday. Spiked fever with T:102.5 last night. 04/17 Patient s/p trach yesterday. T: 100.3 at midnight. 04/18 Continues to have low-grade fever. No change in mental status. Sputum Pseudomonas pansensitive. No seizures reported in the last 24 hours 04/19: No fever reported. Slightly more awake and was commands on right upper extremity by squeezing hands very weakly. On CPAP 15/04. Slightly tachypneic 04/20: WBC count slightly elevated today, tachypnea on CPAP. Continues to follow commands weakly on right hand. Intermittently about to wiggle toes. Slight increase in white count to 13,000. Tmax 100.9 ID following 04/21: Tolerated only 1 hour CPAP yesterday. Unable to reduce pressure support. Tmax 99.9 04/22: Remains on mechanical ventilation via tracheostomy. Tolerated C Pap trial for 1 hour yesterday. 04/23: Remains on mechanical ventilation via tracheostomy. Daily C Pap trials ongoing. Tolerating tube feeds. 04/24: Afebrile. Copious edema//swelling extremities. Decreased urine output noted. Remains on mechanical ventilation via trach acid. Daily C Pap trials ongoing. Positive BM. 04/25: Tmax 99.5. With copious edema. Will give 1 additional dose of Bumex today after albumin. Remains on ventilator via tracheostomy. Ongoing CPAP trials. 04/26: Tmax 100. Diuresed yesterday. Remains on ventilator via tracheostomy. Positive BM. 04/27: Diuresed well yesterday. Tolerating CPAP trials 4 hours today. Positive BM. Awake and interactive. Subjective: 04/28: Decreased urine output noted today. Low-grade temperature 99.3. Tolerating CPAP trials for the past 24 hours currently at 18/5 at 40%. 04/29: Awake and alert. Tolerating C Pap trials. 04/30: Drowsy, easily arousable. Tolerating C Pap trials. 05/01: Drowsy, arousable, tolerating C Pap trials. 05/02: Awake and alert. On mechanical ventilation via tracheostomy. Daily C Pap trials ongoing. 05/03: Awake, alert. On mechanical ventilation via tracheostomy. Tolerating C Pap trials. Had episode of emesis last night. 05/04: Awake and alert. Placed on T piece this morning. Resting comfortably. Tolerating tube feeds. 05/05: Awake and alert. Following commands. On T piece all day yesterday. Rested on vent last night. Back on T piece this morning. 05/06: Awake and alert. Remains on T piece. Abdominal distention noted. KUB shows dilated bowel loops. Tube feeds held. 05/07: Awake and alert. Abdominal distentions somewhat improved. Tube feeds being resumed by GI. Having copious bowel movements since increasing lactulose. 05/08: Awake and alert. Complains of abdominal pain on starting tube feeds hence it has been held currently. Abdomen remains distended however he does have copious bowel movements. GI informed. KUB ordered. Objective Vital Signs Date Time Temp Pulse Resp B/P Pulse Ox O2 Delivery O2 Flow Rate FiO2 05/08/17 16:00 81 05/08/17 16:00 98.0 22 120/69 96 05/08/17 08:21 T-piece 6.00 28 Intake and Output 05/07/17 05/07/17 05/08/17 08:00 16:00 00:00 Intake Total 120 ml 318 ml Output Total 250 ml 300 ml 200 ml Balance -130 ml -300 ml 118 ml Result Diagram: 05/08/17 0445 05/08/17 0445 Imaging Last Impressions Chest X-Ray 04/28/17 0600 Signed Impressions: Service Date/Time: Friday, April 28, 2017 04:27 - CONCLUSION: 1. Bilateral basilar and perihilar air space disease slightly improved on the right. No significant effusion. Tracheostomy in satisfactory position Miguel Looney MD Abdomen/Pelvis CT 04/16/17 0000 Signed Impressions: Service Date/Time: Sunday, April 16, 2017 11:26 - CONCLUSION: 1. Cirrhosis and splenomegaly. 2. Ascites 3. Anasarca 4. No pancreas mass identified Yinka Harman MD Liver Ultrasound 04/15/17 0000 Signed Impressions: Service Date/Time: Saturday, April 15, 2017 09:24 - CONCLUSION: 1. Abnormal appearance of the pancreas with a nonspecific hypoechoic area involving the posterior part of the pancreas along the head and body region. Recommend CT scan of the abdomen with oral and IV contrast further evaluation. 2. Fatty infiltration throughout the liver. 3. There is thickening of the gallbladder wall at 6 mm. This is suggestive of chronic gallbladder disease. 4. Small amount of free fluid adjacent to the liver and spleen in the upper abdomen.. 5. Right-sided pleural effusion. Víctor Rosas MD Abdomen X-Ray 04/13/17 0000 Signed Impressions: Service Date/Time: Thursday, April 13, 2017 10:36 - CONCLUSION: Dobbhoff tip in distal stomach. No evidence of obstruction. Logan Morgan MD Head CT 04/12/17 0000 Signed Impressions: Service Date/Time: Wednesday, April 12, 2017 21:30 - CONCLUSION: Pontine encephalomalacia. Left mastoiditis. Casper Alva MD Head Magnetic Resonance Angiography 03/28/17 0000 Signed Impressions: Service Date/Time: March 17:22 - CONCLUSION: Unremarkable examination. Bety Castillo MD Brain MRI 03/28/17 0000 Signed Impressions: Service Date/Time: March 17:22 - CONCLUSION: 1. 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 Small subacute ischemic bilateral thalamic infarcts. 2. There has been no significant change when compared to the prior exam. Yinka Harman MD Lower Extremity Ultrasound 03/25/17 0000 Signed Impressions: Service Date/Time: Saturday, March 25, 2017 22:17 - CONCLUSION: No evidence of DVT. Víctor Rosas MD CT Angiography 03/21/17 0000 Signed Impressions: Service Date/Time: March 00:33 - CONCLUSION: No evidence of pulmonary embolism is identified. Mild atelectasis left lung base. Fluid or phlegm within the trachea. Milo Muhammad MD Abdomen Ultrasound 03/20/17 0000 Signed Impressions: Service Date/Time: Monday, March 20, 2017 11:38 - CONCLUSION: 1. Hepatosplenomegaly without focal lesion. 2. Probable sludge within the lumen of the gallbladder. No intrahepatic duct. Cheo Martínez MD Shoulder X-Ray 03/02/17 1404 Signed Impressions: Service Date/Time: Thursday, March 02, 2017 15:18 - CONCLUSION: No evidence of recent bony injury. Deformity of the lateral left clavicle suggests old healed trauma. Cheo Martínez MD Maxillofacial CT 03/02/17 1342 Signed Impressions: Service Date/Time: Thursday, March 02, 2017 14:52 - CONCLUSION: Negative CT of the facial bones. Cheo Martínez MD Chest CT 03/02/17 1342 Signed Impressions: Service Date/Time: Thursday, March 02, 2017 15:04 - CONCLUSION: 1. Abnormal appearance of the lateral left clavicle suggesting a combination of acute and chronic bony injury. Fracture lucencies without bridging callus is seen the region of the coracoid process. 2. The lungs are clear. No evidence of pneumothorax. 3. Moderate size hiatus hernia. Cheo Martínez MD Cervical Spine CT 03/02/17 1342 Signed Impressions: Service Date/Time: Thursday, March 02, 2017 14:52 - CONCLUSION: Negative CT cervical spine. Cheo Martínez MD Objective Remarks GENERAL: 61-year-old chronically ill appearing male HEENT: Healing abrasion left side scalp. TIMOTHY. Scleral icterus. Poor dentition. NECK: Trachea Midline, Trach without bleed RESP: On T piece currently, Coarse breath sounds bilaterally. No wheezing or crackles. CARDIOVASCULAR: Tachycardia, RR. S1, S2. No S4. ABDOMEN: Distended, soft, vague tenderness, no guarding, bowel sounds hyperactive. G-tube in place : Johns in place with conrad urine output. mild/moderate scrotal edema. MUSCULOSKELETAL: No obvious deformity. 1+ to 2+ edema all extremities NEUROLOGICAL: Awake and alert, following commands. Grade 3 power in upper extremities distally. Can wiggle his toes. A/P Assessment and Plan Neuro/Psych: Osmotic demyelination syndrome Acute toxic metabolic encephalopathy secondary to hypercarbic respiratory failure Alcohol dependence Seizures (History of EtOH induced seizure withdrawal) Chronic benzodiazepine use Bilateral thalamic CVA Off all sedation. oxycodone 5 mg every 4 hours as needed for pain. Ativan 0.5 mg PRN for sz MRI 03/21 - findings consistent with Osmotic demyelination syndrome. ODS most likely from rapid correction of Na, with underlying alcoholism. ( Patient was profoundly hypotensive in shock requiring multiple pressors at that time) MRI brain 03/28 revealed subacute bilateral thalamic lacunar infarcts, ODS. CT head 03/05 revealed no acute intracranial findings Continue thiamine 100 mg daily Seen by neurology/Dr. Mazariegos. EEG previously with persistent. continue Keppra 1000mg BID Respiratory: Acute hypoxemic hypercapnic respiratory failure Spontaneous breathing trials daily. Tolerating T piece since morning on 05/04. Continue T piece as tolerated. Ventilator bundle, s/p trach 04/16 Bronchodilator therapy every 6 hours and as needed Pulm toilet, trach care. Cardiovascular: Chronic Systolic heart failure Echocardiogram 03/04 revealed EF 35-40%. Mild MR. Left atrium dilated. JANE 33 mmHg s/p hydrocortisone. Continue midodrine 10 mg 3 times Monitor HR and BP keep MAP>65mmHg Renal/FEN: Acute Kidney Injury Rhabdomyolysis- resolved ODS-see neuro Hypernatremia - resolving Monitor renal function, I/O's, electrolytes replacement per protocol. DC D5/12 NS 04/21 GI: EtOH cirrhosis Hyperammonemia Hiatal hernia Sigmoid diverticulosis Hypoalbuminemia Tube feeds via PEG tube-(Jevity 1.5 with goal rate 60ml/hr). Tube feeds held on 05/06 due to increasing abdominal distention, KUB revealed dilated bowel loops. GI consult requested on 05/06. Lactulose increased with good response copious bowel movements and decrease in abdominal distention. Tube feeds being resumed on 05/07. Repeat KUB ordered on 05/08. Will obtain CT abdomen pelvis with oral contrast for further evaluation of abdominal pain. s/p PEG tube placement 04/15 CT abdomen/pelvis 04/16: Cirrhosis of liver, splenomegaly, anasarca, ascites(mild ) On Xifaxan 550 twice a day/lactulose 30 twice a day. US Liver 04/15: Abnormal appearance of the pancreas with a nonspecific hypoechoic area involving the posterior part of the pancreas along the head and body region. Fatty infiltration throughout the liver. There is thickening of the gallbladder wall at 6 mm. Suggestive of chronic gallbladder disease. Small amount of free fluid adjacent to the liver and spleen in the upper abdomen. Right-sided pleural effusion. 03/20 Ultrasound liver-hepatosplenomegaly. Sludge in gallbladder Prevacid Heme: Leukocytosis Macrocytic anemia - now normocytic Monitor CBC. No indications for transfusion of blood proximally postop B12 1452, Folate 15.2. TSH 0.8. ID: Aspiration pneumonia, PSAE in sputum Escherichia coli UTI 03/11 - completed therapy Acinetobacter pneumonia Pertinent cultures 04/29 - MDR Acinetobacter 04/26 - urine -C. albicans 04/15 Sputum cx: PSAE 04/15 urine cx: Klebsiella 04/15 BC: NGTD 04/12 BC: NGTD 04/08 - blood cultures 2 - no growth 04/08 - sputum - no growth 04/05 - urine -C GLABRATA AND C. ALBICANS 03/29 - blood cultures 2 - NGTD 03/25 - sputum --Acinetobacter. 03/25 - urine - NGTD 03/25 - blood cultures 2 -no growth 03/22 - urine - no growth 03/22 - blood cultures 2 - negative 03/20 - blood cultures 2 - no growth 03/11 - urine - Escherichia coli 03/02 - blood cultures 2 - no growth Followed by Dr. Lisa/ID. Changed Zosyn to cefepime 04/17 Levaquin started 04/20/17 by ID. Complete therapy by 04/30/17 Started Diflucan 100 daily 04/26 for C. albicans funguria - to complete 7 days of therapy Off Flagyl po 03/24 Procalcitonin level: 0.40, C-diff PCR negative 04/10 Colistin nebs for MDRO Acinetobacter in sputum 04/29 Endocrine: Hyperglycemia of critical illness History of hypothyroidism SSI with Accu-Cheks every 4 hours to maintain euglycemia MSK: History of old left clavicle fracture PT/OT evaluate and treat Access Peripheral IV. Prophylaxis: GI -Prevacid DVT - SCD/heparin subcutaneous Palliative care is following code status changed to full code per daughter's request. Tamanna Sandhu, daughter/ HCP: from [facility] [phone] now confirmed transferred to [facility] in [place] facility ) Code status -full code CM working on LTAC placement Level 3 Elliott Rock MD May 08, 2017 17:26
[2017-05-08] MEDS ORDERED: DIATRIZOATE MEGLUM/DIATRIZOATE SOD 9 ML CUP PO ONE (18:26)
[2017-05-08] MEDS ORDERED: METHYLNALTREXONE BROMIDE 12 MG/0.6 ML VIAL SQ ONE (20:00)
--- NOTE | 2017-05-08 23:40 | RADRPT ---
EXAM DATE/TIME: 05/08/2017 23:10 [place] COMPARISON: No previous studies available for comparison. INDICATIONS : Abdominal distention. ORAL CONTRAST: Prescribed oral contrast ingested. RADIATION DOSE: 11.02 CTDIvol (mGy) MEDICAL HISTORY : Cirrhosis. Diverticulosis. Seizures.Hiatal hernia SURGICAL HISTORY : None. ENCOUNTER: Initial ACUITY: 1 day PAIN SCALE: 0/10 LOCATION: Bilateral abdomen TECHNIQUE: Volumetric scanning of the abdomen and pelvis was performed. Using automated exposure control and ad justment of the mA and/or kV according to patient size, radiation dose was kept as low as reasonably achievable to obtain optimal diagnostic quality images. FINDINGS: LOWER LUNGS: Moderate-sized bilateral pleural effusions with bibasilar passive atelectasis. LIVER: The liver has a cirrhotic nodular appearance with enlargement of the left lobe of the liver. There is fluid surrounding the liver and spleen. There may be a small gallstone present SPLEEN: Enlarged in size without lesion. PANCREAS: Within normal limits. KIDNEYS: Normal in size and shape. There is no mass, stone, or hydronephrosis. ADRENAL GLANDS: Within normal limits. VASCULAR: There is no aortic aneurysm. BOWEL/MESENTERY: There some distended loops of thickwalled small bowel in the midabdomen and upper pelvis. There is no evidence of obstruction but the small bowel wall is clearly thickened correlate for hypoalbuminemia ABDOMINAL WALL: Within normal limits. G-tube is in place RETROPERITONEUM: There is no lymphadenopathy. BLADDER: Johns catheter in place. REPRODUCTIVE: Within normal limits. INGUINAL: There is no lymphadenopathy or hernia. MUSCULOSKELETAL: Within normal limits for patient age. CONCLUSION: Significant fluid throughout the abdomen and the pelvis with what appears to be a cirrhotic appearing liver and splenomegaly. There is significant small bowel wall thickening throughout the lower abdome n and the upper pelvis without evidence of obstruction Milo Muhammad MD on May 08, 2017 at 23:33 Board Certified Radiologist. This report was verified electronically.
[2017-05-09] VITALS (14 sets, daily range): BP systolic 106–121; BP diastolic 61–69; PULSE 74–90; RESP 18–23; TEMP 98.3–98.7; O2SAT 97–100
[2017-05-09] MEDS: DEXT 5%-NACL 0.9% 1000 ML INJ 1,000 ML IV SCH ×2 (05:20→12:46)
[2017-05-09] MEDS: MIDODRINE 5 MG TAB PO SCH ×3 (06:03→21:02)
[2017-05-09] MEDS: RESP: COLISTIN 150 MG VIAL NEB SCH ×2 (08:37→21:27)
[2017-05-09] MEDS: MUPIROCIN 2% OINT 1 APPLIC/GM SYR EACH NARE SCH ×2 (08:56→21:00)
[2017-05-09] MEDS: ARTIFICIAL TEARS OPTH SOLN 15 ML BTL EACH EYE SCH ×3 (08:56→17:50)
[2017-05-09] MEDS: CHLORHEXIDINE 0.12% (ORAL KIT) 15 ML CUP MT SCH ×2 (08:56→20:59)
[2017-05-09] MEDS: SODIUM CHLORIDE 0.9% FLUSH 10 ML FLUSH IVF SCH (08:57)
[2017-05-09] MEDS: SODIUM CHLORIDE 0.9% FLUSH 10 ML FLUSH IV FLUSH SCH ×2 (08:57→21:00)
[2017-05-09] MEDS: RIFAXIMIN 550 MG TAB PO SCH ×2 (08:57→21:00)
[2017-05-09] MEDS: LANSOPRAZOLE SOLUTAB 30 MG TAB NG SCH (08:57)
[2017-05-09] MEDS: levETIRAcetam 500 MG/5 ML UDC NG SCH ×2 (08:57→21:02)
[2017-05-09] MEDS: THIAMINE HCL 100 MG TAB PO SCH (08:57)
[2017-05-09] MEDS: INSULIN NovoLIN REGULAR SUPPLEMENTAL SCALE SQ SCH ×2 (08:58→21:00)
[2017-05-09] MEDS: LACTOBACILLUS ACIDOPHILUS TAB PO SCH ×3 (08:58→17:50)
[2017-05-09] MEDS: HEPARIN SODIUM - SQ 10,000 UNITS/ML VIAL SQ SCH ×2 (08:58→21:01)
[2017-05-09] MEDS: NYSTATIN 100,000 U/GM PWD 15 GM BTL TOPICAL SCH ×2 (08:59→21:03)
[2017-05-09] MEDS: LACTULOSE SYRUP 20 GM/30 ML CUP PO SCH ×2 (08:59→21:00)
[2017-05-09] MEDS: SODIUM HYPOCHLORITE 0.125% 500 ML BTL TOPICAL SCH (09:00)
--- NOTE | 2017-05-09 11:25 | HHI.CCPN ---
Subjective Remarks/Hospital Course This is a 61-year-old male with a past history of alcohol abuse and a prior admission in 2015 for severe life-threatening hyponatremia at that time with a serum sodium of 98. He presents today with what he states is a 13 day history of worsening fatigue and weakness. He is very altered and is very difficult to understand the patient. What I can understand from him, is that at some point during these 13 days he has fallen and hit his face. Otherwise he states he lays on the couch, and has not gotten not much. He states he drinks 1 beer in the morning, and 1 beer in the afternoon. He does endorse taking some Xanax to help him sleep. He denies other drug use. He denies chest pain, shortness of breath, fever, chills, nausea, vomiting, abdominal pain. It is very difficult to get him to answer anymore questions about his medical history. His speech is very slurred and he is trying to talk about how he misses his daughter. Emergency department he was found to have a serum sodium of 99, a bilirubin of 8.9, lactate of 9.8, ammonia of 60, CK of 7000, elevated troponin of 4.9 with a normal MB ratio, creatinine 1.5, serum bicarbonate of 13. His white count is 12 , platelets 112. INR 1.9. His MELD calculates at 26. 4/2: Sodium level rapidly corrected overnight, likely secondary to appropriate correction of severe life-threatening dehydration. NS fluids changed to 1/2NS and correction slowed down significantly. sodium up to 130 this AM. CK downtrending. however, patient remains severely hypotensive requiring Levophed to maintain a map > 65 mmHg. This AM, serum K 1.6 (confirmed). started replacement with 200meq KCl and recheck K. 03/04: persists in vasoplegic distributive shock. afebrile. no evidence of infection. wbc downtrending. persists with severe life-threatening electrolyte derangements. passed swallow eval for nectar thick liquids. sodium stable at 131. ck downtrending. 03/05: persists in distributive shock. echo yesterday with EF 30%, globally decreased function. milrinone added yesterday with improvement in vasopressor requirement. still with multiple electrolyte abnormalities despite very aggressive replacement. very poor appetite. sodium stable at 131, which appears to be around baseline for him, looking back at prior records. also became agitated and delirious yesterday, likely secondary to etoh withdraw. started on Ativan and Librium. 03/06: electrolyte derangements persist. placed on continuous NaPhos infusion x 24h due to severe life-threatening hypophosphatemia. serial K, phos checks. weaning off levophed, milrinone persists. still poor appetite. sodium jumped from 132 to 139, but no significant mental status change, and we did not increase sodium load. 03/07: still requiring high electrolyte replacement. milrinone weaned to 0.375 mcg /kg/min overnight. still doing well with that. delirium persists. 03/08 Remains on milrinone. Electrolyte improving. Remains very lethargic, intermittently follows commands 03/09: Continues to be lethargic but wakes up follows some commands. Remains on milrinone will DC today. T max 100.1, urine output adequate sodium is 143 03/10: More awake alert, ate 50% of break fast. Will DC Dobhoff. Discontinue arterial and central lines. Delirium also improved, remains weak 03/11: doing much better this morning. no complaints. still with poor appetite. electrolytes improved. 03/20: We consulted for respiratory failure. Patient was last seen in room 1415 CMP receiving oral cares and became acutely hypoxic saturations 82% with coarse breath sounds. Halicat called. Patient was placed on a Venturi mask 50 % with desaturations to the mid 90s. He received Solu-Medrol 20 mg IV 1, Lasix 40 mg IV 1 and was transferred IM [facility] 521. Hemodynamically stable. Poor mentation 03/25: Reconsulted due to respiratory failure. Patient with gurgling/ transmitted upper airway sounds. Respiration the 50s. Decision made to orotracheally intubate. Noted to have been febrile with increased O2 course over the past 48 hours. 03/26: Afebrile. Requiring Nimbex drip for ventilator synchrony. Decreased urine output noted. Hemoglobin decreased likely dilutional. Tolerating tube feeding. Electrolytes been replaced. 03/27: Tmax 100.9. Currently 97.2. +6 L past 24 hours. Hemoglobin 8 transfuse overnight. Potassium 3. We'll discontinue Nimbex drip for vent synchrony today. 03/28: Afebrile. Negative fluid balance past 24 hours. Hemoglobin currently 9. Potassium 3.0. Currently on sedation vacation positive gag and otherwise unresponsive. 03/29: Tmax 103. Currently afebrile. Not tolerating tube feeds. Remains on Kiran-Synephrine. Did not tolerate sedation vacation back on Versed at 5 mg an hour fentanyl drip at 100 mcg an hour. One bowel movement. 03/30 Tube feeds remain on hold. On neosynephrine 40 mcg/min, RN states she has been weaning. Having BMs. On Versed 8 mg/hr and fentanyl 100 mcg/hr. 03/31 Off versed. Remains on fentanyl 100 mcg/hr. Having hiccups. Still on neosynephrine 40 mcg/min. Tolerating trickle feeds. Had 2 bowel movements 04/01: no meaningful change. still requires fentanyl for sedation. still on low- dose vasopressors. 04/02: no changes. still on levo @ 7 mcg/min. unable to wean off fentanyl due to tachycardia and tachypnea. 04/03: Off all sedation. On low-dose norepinephrine. Essentially unresponsive on the ventilator. Plan for likely withdrawal of care tomorrow 04/04: Off all sedation. Off all vasopressors. According to overnight RN was following commands. Will open eyes but not following commands this AM. 04/05 No events overnight. Afebrile On no sedation. 04/06: Resting comfortably in bed. Eyes are open. Moving head back and forth continuously. Weakly following commands with his upper and lower extremities. 04/07: Low-grade temperatures overnight. 99.8. Eyes are open. Moving back and forth. Positive BM. Continues to be following commands. 04/08 Patient remains intubated on no sedation awake and follows commands. Tmax 100.8 04/09 Patient remains intubated, tolerated CPAP all day and had good responses in UO with Bumex yesterday. Afebrile. 04/10: Tmax 99.1. Went back on set rate ventilation yesterday. Will attempt PSV trials throughout the day with goal to attempt extubation tomorrow. 04/11: Tmax 100.2. Currently 100.1. Did not tolerate weaning parameters with NIF -9 and unacceptable RSBI. Patient is arousable and follows commands eyes open 04/12: Omayra care reports tonic-clonic seizure activity this AM. Heart rate in the 140s during episode with violent shaking. On examination, patient's eyes are open and at baseline except currently not following commands. 04/13: had 2 seizures this morning, both resolved without medication interventions. Dr. Fabrizio navas'd at bedside earlier and ordered Cerebyx load. no other changes. plan for trach/peg next week 04/14: still having breakthrough seizures on repeat EEG despite Cerebyx and Keppra. plan for PEG tomorrow. 04/15 No events overnight. Remains intubated. On no sedation. For PEG tube placement today. T:101.2 last night. 04/16 Patient remains intubated. For trach this afternoon. s/p PEG tube placement yesterday. Spiked fever with T:102.5 last night. 04/17 Patient s/p trach yesterday. T: 100.3 at midnight. 04/18 Continues to have low-grade fever. No change in mental status. Sputum Pseudomonas pansensitive. No seizures reported in the last 24 hours 04/19: No fever reported. Slightly more awake and was commands on right upper extremity by squeezing hands very weakly. On CPAP 15/04. Slightly tachypneic 04/20: WBC count slightly elevated today, tachypnea on CPAP. Continues to follow commands weakly on right hand. Intermittently about to wiggle toes. Slight increase in white count to 13,000. Tmax 100.9 ID following 04/21: Tolerated only 1 hour CPAP yesterday. Unable to reduce pressure support. Tmax 99.9 04/22: Remains on mechanical ventilation via tracheostomy. Tolerated C Pap trial for 1 hour yesterday. 04/23: Remains on mechanical ventilation via tracheostomy. Daily C Pap trials ongoing. Tolerating tube feeds. 04/24: Afebrile. Copious edema//swelling extremities. Decreased urine output noted. Remains on mechanical ventilation via trach acid. Daily C Pap trials ongoing. Positive BM. 04/25: Tmax 99.5. With copious edema. Will give 1 additional dose of Bumex today after albumin. Remains on ventilator via tracheostomy. Ongoing CPAP trials. 04/26: Tmax 100. Diuresed yesterday. Remains on ventilator via tracheostomy. Positive BM. 04/27: Diuresed well yesterday. Tolerating CPAP trials 4 hours today. Positive BM. Awake and interactive. Subjective: 04/28: Decreased urine output noted today. Low-grade temperature 99.3. Tolerating CPAP trials for the past 24 hours currently at 18/5 at 40%. 04/29: Awake and alert. Tolerating C Pap trials. 04/30: Drowsy, easily arousable. Tolerating C Pap trials. 05/01: Drowsy, arousable, tolerating C Pap trials. 05/02: Awake and alert. On mechanical ventilation via tracheostomy. Daily C Pap trials ongoing. 05/03: Awake, alert. On mechanical ventilation via tracheostomy. Tolerating C Pap trials. Had episode of emesis last night. 05/04: Awake and alert. Placed on T piece this morning. Resting comfortably. Tolerating tube feeds. 05/05: Awake and alert. Following commands. On T piece all day yesterday. Rested on vent last night. Back on T piece this morning. 05/06: Awake and alert. Remains on T piece. Abdominal distention noted. KUB shows dilated bowel loops. Tube feeds held. 05/07: Awake and alert. Abdominal distentions somewhat improved. Tube feeds being resumed by GI. Having copious bowel movements since increasing lactulose. 05/08: Awake and alert. Complains of abdominal pain on starting tube feeds hence it has been held currently. Abdomen remains distended however he does have copious bowel movements. GI informed. KUB ordered. 05/09: Awake and alert. Has been having copious BMs. Received Relistor yesterday. CT abdomen pelvis shows ileus and a cirrhotic liver, splenomegaly and free fluid in the abdomen. Awaiting GI follow-up. Objective Vital Signs Date Time Temp Pulse Resp B/P Pulse Ox O2 Delivery O2 Flow Rate FiO2 05/09/17 10:00 90 05/09/17 08:39 100 T-piece 5.00 28 05/09/17 08:00 98.3 21 111/62 Intake and Output 05/08/17 05/08/17 05/09/17 08:00 16:00 00:00 Intake Total 120 ml 120 ml 1305 ml Output Total 200 ml 250 ml 300 ml Balance -80 ml -130 ml 1005 ml Result Diagram: 05/08/175 05/08/17444 Imaging Last Impressions Chest X-Ray 04/28/17 0600 Signed Impressions: Service Date/Time: Friday, April 28, 2017 04:27 - CONCLUSION: 1. Bilateral basilar and perihilar air space disease slightly improved on the right. No significant effusion. Tracheostomy in satisfactory position Miguel Looney MD Abdomen/Pelvis CT 04/16/17 0000 Signed Impressions: Service Date/Time: Sunday, April 16, 2017 11:26 - CONCLUSION: 1. Cirrhosis and splenomegaly. 2. Ascites 3. Anasarca 4. No pancreas mass identified Yinka Harman MD Liver Ultrasound 04/15/17 0000 Signed Impressions: Service Date/Time: Saturday, April 15, 2017 09:24 - CONCLUSION: 1. Abnormal appearance of the pancreas with a nonspecific hypoechoic area involving the posterior part of the pancreas along the head and body region. Recommend CT scan of the abdomen with oral and IV contrast further evaluation. 2. Fatty infiltration throughout the liver. 3. There is thickening of the gallbladder wall at 6 mm. This is suggestive of chronic gallbladder disease. 4. Small amount of free fluid adjacent to the liver and spleen in the upper abdomen.. 5. Right-sided pleural effusion. Víctor Rosas MD Abdomen X-Ray 04/13/17 0000 Signed Impressions: Service Date/Time: Thursday, April 13, 2017 10:36 - CONCLUSION: Dobbhoff tip in distal stomach. No evidence of obstruction. Logan Morgan MD Head CT 04/12/17 0000 Signed Impressions: Service Date/Time: Wednesday, April 12, 2017 21:30 - CONCLUSION: Pontine encephalomalacia. Left mastoiditis. Casper Alva MD Head Magnetic Resonance Angiography 03/28/17 0000 Signed Impressions: Service Date/Time: March 17:22 - CONCLUSION: Unremarkable examination. Bety Castillo MD Brain MRI 03/28/17 0000 Signed Impressions: Service Date/Time: March 17:22 - CONCLUSION: 1. 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 Small subacute ischemic bilateral thalamic infarcts. 2. There has been no significant change when compared to the prior exam. Yinka Harman MD Lower Extremity Ultrasound 03/25/17 0000 Signed Impressions: Service Date/Time: Saturday, March 25, 2017 22:17 - CONCLUSION: No evidence of DVT. Víctor Rosas MD CT Angiography 03/21/17 0000 Signed Impressions: Service Date/Time: March 00:33 - CONCLUSION: No evidence of pulmonary embolism is identified. Mild atelectasis left lung base. Fluid or phlegm within the trachea. Milo Muhammad MD Abdomen Ultrasound 03/20/17 0000 Signed Impressions: Service Date/Time: Monday, March 20, 2017 11:38 - CONCLUSION: 1. Hepatosplenomegaly without focal lesion. 2. Probable sludge within the lumen of the gallbladder. No intrahepatic duct. Cheo Martínez MD Shoulder X-Ray 03/02/17 1404 Signed Impressions: Service Date/Time: Thursday, March 02, 2017 15:18 - CONCLUSION: No evidence of recent bony injury. Deformity of the lateral left clavicle suggests old healed trauma. Cheo Martínez MD Maxillofacial CT 03/02/17 1342 Signed Impressions: Service Date/Time: Thursday, March 02, 2017 14:52 - CONCLUSION: Negative CT of the facial bones. Cheo Martínez MD Chest CT 03/02/17 1342 Signed Impressions: Service Date/Time: Thursday, March 02, 2017 15:04 - CONCLUSION: 1. Abnormal appearance of the lateral left clavicle suggesting a combination of acute and chronic bony injury. Fracture lucencies without bridging callus is seen the region of the coracoid process. 2. The lungs are clear. No evidence of pneumothorax. 3. Moderate size hiatus hernia. Cheo Martínez MD Cervical Spine CT 03/02/17 1342 Signed Impressions: Service Date/Time: Thursday, March 02, 2017 14:52 - CONCLUSION: Negative CT cervical spine. Cheo Martínez MD Objective Remarks GENERAL: 61-year-old chronically ill appearing male HEENT: Healing abrasion left side scalp. TIMOTHY. Scleral icterus. Poor dentition. NECK: Trachea Midline, Trach without bleed RESP: On T piece currently, Coarse breath sounds bilaterally. No wheezing or crackles. CARDIOVASCULAR: Tachycardia, RR. S1, S2. No S4. ABDOMEN: Distended, soft, nontender, no guarding, bowel sounds hyperactive. G- tube in place : Johns in place with conrad urine output. mild/moderate scrotal edema. MUSCULOSKELETAL: No obvious deformity. 1+ to 2+ edema all extremities NEUROLOGICAL: Awake and alert, following commands. Grade 3 power in upper extremities distally. Can wiggle his toes. A/P Assessment and Plan Neuro/Psych: Osmotic demyelination syndrome Acute toxic metabolic encephalopathy secondary to hypercarbic respiratory failure Alcohol dependence Seizures (History of EtOH induced seizure withdrawal) Chronic benzodiazepine use Bilateral thalamic CVA Off all sedation. oxycodone 5 mg every 4 hours as needed for pain. Ativan 0.5 mg PRN for sz MRI 03/21 - findings consistent with Osmotic demyelination syndrome. ODS most likely from rapid correction of Na, with underlying alcoholism. ( Patient was profoundly hypotensive in shock requiring multiple pressors at that time) MRI brain 03/28 revealed subacute bilateral thalamic lacunar infarcts, ODS. CT head 03/05 revealed no acute intracranial findings Continue thiamine 100 mg daily Seen by neurology/Dr. Mazariegos. EEG previously with persistent. continue Keppra 1000mg BID Respiratory: Acute hypoxemic hypercapnic respiratory failure Spontaneous breathing trials daily. Tolerating T piece since morning on 05/04. Continue T piece as tolerated. Ventilator bundle, s/p trach 04/16 Bronchodilator therapy every 6 hours and as needed Pulm toilet, trach care. Cardiovascular: Chronic Systolic heart failure Echocardiogram 03/04 revealed EF 35-40%. Mild MR. Left atrium dilated. JANE 33 mmHg s/p hydrocortisone. Continue midodrine 10 mg 3 times Monitor HR and BP keep MAP>65mmHg Renal/FEN: Acute Kidney Injury Rhabdomyolysis- resolved ODS-see neuro Hypernatremia - resolving Monitor renal function, I/O's, electrolytes replacement per protocol. DC D5/12 NS 04/21 GI: EtOH cirrhosis Hyperammonemia Hiatal hernia Sigmoid diverticulosis Hypoalbuminemia Tube feeds via PEG tube-(Jevity 1.5 with goal rate 60ml/hr). Tube feeds held on 05/06 due to increasing abd distension, tube feeds being resumed on 05/09. KUB revealed dilated bowel loops. GI consult requested on 05/06. Lactulose increased with good response copious bowel movements and decrease in abdominal distention. Tube feeds being resumed on 05/07. Repeat KUB ordered on 05/08. CT abdomen pelvis 6/7 with oral/ IV contrast revealed cirrhotic liver, spleen or megaly, free fluid in abdomen and ileus pattern. s/p PEG tube placement 04/15 CT abdomen/pelvis 04/16: Cirrhosis of liver, splenomegaly, anasarca, ascites(mild ) On Xifaxan 550 twice a day/lactulose 30 twice a day. US Liver 04/15: Abnormal appearance of the pancreas with a nonspecific hypoechoic area involving the posterior part of the pancreas along the head and body region. Fatty infiltration throughout the liver. There is thickening of the gallbladder wall at 6 mm. Suggestive of chronic gallbladder disease. Small amount of free fluid adjacent to the liver and spleen in the upper abdomen. Right-sided pleural effusion. 03/20 Ultrasound liver-hepatosplenomegaly. Sludge in gallbladder Prevacid Heme: Leukocytosis Macrocytic anemia - now normocytic Monitor CBC. No indications for transfusion of blood B12 1452, Folate 15.2. TSH 0.8. ID: Aspiration pneumonia, PSAE in sputum Escherichia coli UTI 03/11 - completed therapy Acinetobacter pneumonia Pertinent cultures 04/29 - MDR Acinetobacter 04/26 - urine -C. albicans 04/15 Sputum cx: PSAE 04/15 urine cx: Klebsiella 04/15 BC: NGTD 04/12 BC: NGTD 04/08 - blood cultures 2 - no growth 04/08 - sputum - no growth 04/05 - urine -C GLABRATA AND C. ALBICANS 03/29 - blood cultures 2 - NGTD 03/25 - sputum --Acinetobacter. 03/25 - urine - NGTD 03/25 - blood cultures 2 -no growth 03/22 - urine - no growth 03/22 - blood cultures 2 - negative 03/20 - blood cultures 2 - no growth 03/11 - urine - Escherichia coli 03/02 - blood cultures 2 - no growth Followed by Dr. Lisa/ID. Changed Zosyn to cefepime 04/17 Levaquin started 04/20/17 by ID. Complete therapy by 04/30/17 Started Diflucan 100 daily 04/26 for C. albicans funguria - to complete 7 days of therapy Off Flagyl po 03/24 Procalcitonin level: 0.40, C-diff PCR negative 04/10 Colistin nebs for MDRO Acinetobacter in sputum 04/29 Endocrine: Hyperglycemia of critical illness History of hypothyroidism SSI with Accu-Cheks every 4 hours to maintain euglycemia MSK: History of old left clavicle fracture PT/OT evaluate and treat Access Peripheral IV. Prophylaxis: GI -Prevacid DVT - SCD/heparin subcutaneous Palliative care is following code status changed to full code per daughter's request. Tamanna Sandhu, daughter/ HCP: from [facility] [phone] now confirmed transferred to [facility] in [place] facility ) Code status -full code CM working on LTAC placement Level 3 Ellitot Rock MD May 09, 2017 11:25
[2017-05-10] VITALS (18 sets, daily range): BP systolic 104–133; BP diastolic 64–80; PULSE 76–91; RESP 18–25; TEMP 98.4–98.8; O2SAT 96–100
[2017-05-10] MEDS: MIDODRINE 5 MG TAB PO SCH ×3 (06:09→20:55)
[2017-05-10] MEDS: RESP: COLISTIN 150 MG VIAL NEB SCH ×2 (07:53→19:19)
[2017-05-10] MEDS: MUPIROCIN 2% OINT 1 APPLIC/GM SYR EACH NARE SCH ×2 (09:00→20:52)
[2017-05-10] MEDS: INSULIN NovoLIN REGULAR SUPPLEMENTAL SCALE SQ SCH ×2 (09:00→20:54)
[2017-05-10] MEDS: LACTULOSE SYRUP 20 GM/30 ML CUP PO SCH (09:00)
[2017-05-10] MEDS: ARTIFICIAL TEARS OPTH SOLN 15 ML BTL EACH EYE SCH ×3 (09:00→17:18)
[2017-05-10] MEDS: SODIUM CHLORIDE 0.9% FLUSH 10 ML FLUSH IVF SCH (09:00)
[2017-05-10] MEDS: HEPARIN SODIUM - SQ 10,000 UNITS/ML VIAL SQ SCH ×2 (09:10→20:54)
[2017-05-10] MEDS: NYSTATIN 100,000 U/GM PWD 15 GM BTL TOPICAL SCH ×2 (09:10→20:54)
[2017-05-10] MEDS: SODIUM HYPOCHLORITE 0.125% 500 ML BTL TOPICAL SCH (09:10)
[2017-05-10] MEDS: SODIUM CHLORIDE 0.9% FLUSH 10 ML FLUSH IV FLUSH SCH ×2 (09:11→20:53)
[2017-05-10] MEDS: THIAMINE HCL 100 MG TAB PO SCH (09:11)
[2017-05-10] MEDS: LANSOPRAZOLE SOLUTAB 30 MG TAB NG SCH (09:11)
[2017-05-10] MEDS: levETIRAcetam 500 MG/5 ML UDC NG SCH ×2 (09:11→20:53)
[2017-05-10] MEDS: RIFAXIMIN 550 MG TAB PO SCH ×2 (09:11→20:53)
[2017-05-10] MEDS: LACTOBACILLUS ACIDOPHILUS TAB PO SCH ×3 (09:11→17:18)
[2017-05-10] MEDS: CHLORHEXIDINE 0.12% (ORAL KIT) 15 ML CUP MT SCH (09:12)
[2017-05-10] MEDS: DEXT 5%-NACL 0.9% 1000 ML INJ 1,000 ML IV SCH ×2 (09:12→20:54)
--- NOTE | 2017-05-10 13:35 | HHI.CCPN ---
Subjective Remarks/Hospital Course This is a 61-year-old male with a past history of alcohol abuse and a prior admission in 2015 for severe life-threatening hyponatremia at that time with a serum sodium of 98. He presents today with what he states is a 13 day history of worsening fatigue and weakness. He is very altered and is very difficult to understand the patient. What I can understand from him, is that at some point during these 13 days he has fallen and hit his face. Otherwise he states he lays on the couch, and has not gotten not much. He states he drinks 1 beer in the morning, and 1 beer in the afternoon. He does endorse taking some Xanax to help him sleep. He denies other drug use. He denies chest pain, shortness of breath, fever, chills, nausea, vomiting, abdominal pain. It is very difficult to get him to answer anymore questions about his medical history. His speech is very slurred and he is trying to talk about how he misses his daughter. Emergency department he was found to have a serum sodium of 99, a bilirubin of 8.9, lactate of 9.8, ammonia of 60, CK of 7000, elevated troponin of 4.9 with a normal MB ratio, creatinine 1.5, serum bicarbonate of 13. His white count is 12 , platelets 112. INR 1.9. His MELD calculates at 26. 4/2: Sodium level rapidly corrected overnight, likely secondary to appropriate correction of severe life-threatening dehydration. NS fluids changed to 1/2NS and correction slowed down significantly. sodium up to 130 this AM. CK downtrending. however, patient remains severely hypotensive requiring Levophed to maintain a map > 65 mmHg. This AM, serum K 1.6 (confirmed). started replacement with 200meq KCl and recheck K. 03/04: persists in vasoplegic distributive shock. afebrile. no evidence of infection. wbc downtrending. persists with severe life-threatening electrolyte derangements. passed swallow eval for nectar thick liquids. sodium stable at 131. ck downtrending. 03/05: persists in distributive shock. echo yesterday with EF 30%, globally decreased function. milrinone added yesterday with improvement in vasopressor requirement. still with multiple electrolyte abnormalities despite very aggressive replacement. very poor appetite. sodium stable at 131, which appears to be around baseline for him, looking back at prior records. also became agitated and delirious yesterday, likely secondary to etoh withdraw. started on Ativan and Librium. 03/06: electrolyte derangements persist. placed on continuous NaPhos infusion x 24h due to severe life-threatening hypophosphatemia. serial K, phos checks. weaning off levophed, milrinone persists. still poor appetite. sodium jumped from 132 to 139, but no significant mental status change, and we did not increase sodium load. 03/07: still requiring high electrolyte replacement. milrinone weaned to 0.375 mcg /kg/min overnight. still doing well with that. delirium persists. 03/08 Remains on milrinone. Electrolyte improving. Remains very lethargic, intermittently follows commands 03/09: Continues to be lethargic but wakes up follows some commands. Remains on milrinone will DC today. T max 100.1, urine output adequate sodium is 143 03/10: More awake alert, ate 50% of break fast. Will DC Dobhoff. Discontinue arterial and central lines. Delirium also improved, remains weak 03/11: doing much better this morning. no complaints. still with poor appetite. electrolytes improved. 03/20: We consulted for respiratory failure. Patient was last seen in room 1415 CMP receiving oral cares and became acutely hypoxic saturations 82% with coarse breath sounds. Halicat called. Patient was placed on a Venturi mask 50 % with desaturations to the mid 90s. He received Solu-Medrol 20 mg IV 1, Lasix 40 mg IV 1 and was transferred IM [facility] 521. Hemodynamically stable. Poor mentation 03/25: Reconsulted due to respiratory failure. Patient with gurgling/ transmitted upper airway sounds. Respiration the 50s. Decision made to orotracheally intubate. Noted to have been febrile with increased O2 course over the past 48 hours. 03/26: Afebrile. Requiring Nimbex drip for ventilator synchrony. Decreased urine output noted. Hemoglobin decreased likely dilutional. Tolerating tube feeding. Electrolytes been replaced. 03/27: Tmax 100.9. Currently 97.2. +6 L past 24 hours. Hemoglobin 8 transfuse overnight. Potassium 3. We'll discontinue Nimbex drip for vent synchrony today. 03/28: Afebrile. Negative fluid balance past 24 hours. Hemoglobin currently 9. Potassium 3.0. Currently on sedation vacation positive gag and otherwise unresponsive. 03/29: Tmax 103. Currently afebrile. Not tolerating tube feeds. Remains on Kiran-Synephrine. Did not tolerate sedation vacation back on Versed at 5 mg an hour fentanyl drip at 100 mcg an hour. One bowel movement. 03/30 Tube feeds remain on hold. On neosynephrine 40 mcg/min, RN states she has been weaning. Having BMs. On Versed 8 mg/hr and fentanyl 100 mcg/hr. 03/31 Off versed. Remains on fentanyl 100 mcg/hr. Having hiccups. Still on neosynephrine 40 mcg/min. Tolerating trickle feeds. Had 2 bowel movements 04/01: no meaningful change. still requires fentanyl for sedation. still on low- dose vasopressors. 04/02: no changes. still on levo @ 7 mcg/min. unable to wean off fentanyl due to tachycardia and tachypnea. 04/03: Off all sedation. On low-dose norepinephrine. Essentially unresponsive on the ventilator. Plan for likely withdrawal of care tomorrow 04/04: Off all sedation. Off all vasopressors. According to overnight RN was following commands. Will open eyes but not following commands this AM. 04/05 No events overnight. Afebrile On no sedation. 04/06: Resting comfortably in bed. Eyes are open. Moving head back and forth continuously. Weakly following commands with his upper and lower extremities. 04/07: Low-grade temperatures overnight. 99.8. Eyes are open. Moving back and forth. Positive BM. Continues to be following commands. 04/08 Patient remains intubated on no sedation awake and follows commands. Tmax 100.8 04/09 Patient remains intubated, tolerated CPAP all day and had good responses in UO with Bumex yesterday. Afebrile. 04/10: Tmax 99.1. Went back on set rate ventilation yesterday. Will attempt PSV trials throughout the day with goal to attempt extubation tomorrow. 04/11: Tmax 100.2. Currently 100.1. Did not tolerate weaning parameters with NIF -9 and unacceptable RSBI. Patient is arousable and follows commands eyes open 04/12: Omayra care reports tonic-clonic seizure activity this AM. Heart rate in the 140s during episode with violent shaking. On examination, patient's eyes are open and at baseline except currently not following commands. 04/13: had 2 seizures this morning, both resolved without medication interventions. Dr. Fabrizio navas'd at bedside earlier and ordered Cerebyx load. no other changes. plan for trach/peg next week 04/14: still having breakthrough seizures on repeat EEG despite Cerebyx and Keppra. plan for PEG tomorrow. 04/15 No events overnight. Remains intubated. On no sedation. For PEG tube placement today. T:101.2 last night. 04/16 Patient remains intubated. For trach this afternoon. s/p PEG tube placement yesterday. Spiked fever with T:102.5 last night. 04/17 Patient s/p trach yesterday. T: 100.3 at midnight. 04/18 Continues to have low-grade fever. No change in mental status. Sputum Pseudomonas pansensitive. No seizures reported in the last 24 hours 04/19: No fever reported. Slightly more awake and was commands on right upper extremity by squeezing hands very weakly. On CPAP 15/04. Slightly tachypneic 04/20: WBC count slightly elevated today, tachypnea on CPAP. Continues to follow commands weakly on right hand. Intermittently about to wiggle toes. Slight increase in white count to 13,000. Tmax 100.9 ID following 04/21: Tolerated only 1 hour CPAP yesterday. Unable to reduce pressure support. Tmax 99.9 04/22: Remains on mechanical ventilation via tracheostomy. Tolerated C Pap trial for 1 hour yesterday. 04/23: Remains on mechanical ventilation via tracheostomy. Daily C Pap trials ongoing. Tolerating tube feeds. 04/24: Afebrile. Copious edema//swelling extremities. Decreased urine output noted. Remains on mechanical ventilation via trach acid. Daily C Pap trials ongoing. Positive BM. 04/25: Tmax 99.5. With copious edema. Will give 1 additional dose of Bumex today after albumin. Remains on ventilator via tracheostomy. Ongoing CPAP trials. 04/26: Tmax 100. Diuresed yesterday. Remains on ventilator via tracheostomy. Positive BM. 04/27: Diuresed well yesterday. Tolerating CPAP trials 4 hours today. Positive BM. Awake and interactive. Subjective: 04/28: Decreased urine output noted today. Low-grade temperature 99.3. Tolerating CPAP trials for the past 24 hours currently at 18/5 at 40%. 04/29: Awake and alert. Tolerating C Pap trials. 04/30: Drowsy, easily arousable. Tolerating C Pap trials. 05/01: Drowsy, arousable, tolerating C Pap trials. 05/02: Awake and alert. On mechanical ventilation via tracheostomy. Daily C Pap trials ongoing. 05/03: Awake, alert. On mechanical ventilation via tracheostomy. Tolerating C Pap trials. Had episode of emesis last night. 05/04: Awake and alert. Placed on T piece this morning. Resting comfortably. Tolerating tube feeds. 05/05: Awake and alert. Following commands. On T piece all day yesterday. Rested on vent last night. Back on T piece this morning. 05/06: Awake and alert. Remains on T piece. Abdominal distention noted. KUB shows dilated bowel loops. Tube feeds held. 05/07: Awake and alert. Abdominal distentions somewhat improved. Tube feeds being resumed by GI. Having copious bowel movements since increasing lactulose. 05/08: Awake and alert. Complains of abdominal pain on starting tube feeds hence it has been held currently. Abdomen remains distended however he does have copious bowel movements. GI informed. KUB ordered. 05/09: Awake and alert. Has been having copious BMs. Received Relistor yesterday. CT abdomen pelvis shows ileus and a cirrhotic liver, splenomegaly and free fluid in the abdomen. Awaiting GI follow-up. 05/10: Awake and alert, denies any abdominal pain though distended little distended. Having bowel movements. Remains on T piece. Objective Vital Signs Date Time Temp Pulse Resp B/P Pulse Ox O2 Delivery O2 Flow Rate FiO2 05/10/17 10:00 82 05/10/17 08:00 98.4 23 123/69 100 05/10/17 07:54 T-piece 5.00 28 Intake and Output 05/09/17 05/09/17 05/10/17 08:00 16:00 00:00 Intake Total 171 ml 809 ml 424 ml Output Total 250 ml 375 ml 250 ml Balance -79 ml 434 ml 174 ml Result Diagram: 05/08/17 0445 05/08/17 0445 Imaging Last Impressions Chest X-Ray 04/28/17 0600 Signed Impressions: Service Date/Time: Friday, April 28, 2017 04:27 - CONCLUSION: 1. Bilateral basilar and perihilar air space disease slightly improved on the right. No significant effusion. Tracheostomy in satisfactory position Miguel Looney MD Abdomen/Pelvis CT 04/16/17 0000 Signed Impressions: Service Date/Time: Sunday, April 16, 2017 11:26 - CONCLUSION: 1. Cirrhosis and splenomegaly. 2. Ascites 3. Anasarca 4. No pancreas mass identified Yinka Harman MD Liver Ultrasound 04/15/17 0000 Signed Impressions: Service Date/Time: Saturday, April 15, 2017 09:24 - CONCLUSION: 1. Abnormal appearance of the pancreas with a nonspecific hypoechoic area involving the posterior part of the pancreas along the head and body region. Recommend CT scan of the abdomen with oral and IV contrast further evaluation. 2. Fatty infiltration throughout the liver. 3. There is thickening of the gallbladder wall at 6 mm. This is suggestive of chronic gallbladder disease. 4. Small amount of free fluid adjacent to the liver and spleen in the upper abdomen.. 5. Right-sided pleural effusion. Víctor Rosas MD Abdomen X-Ray 04/13/17 0000 Signed Impressions: Service Date/Time: Thursday, April 13, 2017 10:36 - CONCLUSION: Dobbhoff tip in distal stomach. No evidence of obstruction. Logan Morgan MD Head CT 04/12/17 0000 Signed Impressions: Service Date/Time: Wednesday, April 12, 2017 21:30 - CONCLUSION: Pontine encephalomalacia. Left mastoiditis. Casper Alva MD Head Magnetic Resonance Angiography 03/28/17 0000 Signed Impressions: Service Date/Time: March 17:22 - CONCLUSION: Unremarkable examination. Bety Castillo MD Brain MRI 03/28/17 0000 Signed Impressions: Service Date/Time: March 17:22 - CONCLUSION: 1. 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 Small subacute ischemic bilateral thalamic infarcts. 2. There has been no significant change when compared to the prior exam. Yinka Harman MD Lower Extremity Ultrasound 03/25/17 0000 Signed Impressions: Service Date/Time: Saturday, March 25, 2017 22:17 - CONCLUSION: No evidence of DVT. Víctor Rosas MD CT Angiography 03/21/17 0000 Signed Impressions: Service Date/Time: March 00:33 - CONCLUSION: No evidence of pulmonary embolism is identified. Mild atelectasis left lung base. Fluid or phlegm within the trachea. Milo Muhammad MD Abdomen Ultrasound 03/20/17 0000 Signed Impressions: Service Date/Time: Monday, March 20, 2017 11:38 - CONCLUSION: 1. Hepatosplenomegaly without focal lesion. 2. Probable sludge within the lumen of the gallbladder. No intrahepatic duct. Cheo Martínez MD Shoulder X-Ray 03/02/17 1404 Signed Impressions: Service Date/Time: Thursday, March 02, 2017 15:18 - CONCLUSION: No evidence of recent bony injury. Deformity of the lateral left clavicle suggests old healed trauma. Cheo Martínez MD Maxillofacial CT 03/02/17 1342 Signed Impressions: Service Date/Time: Thursday, March 02, 2017 14:52 - CONCLUSION: Negative CT of the facial bones. Cheo Martínez MD Chest CT 03/02/17 1342 Signed Impressions: Service Date/Time: Thursday, March 02, 2017 15:04 - CONCLUSION: 1. Abnormal appearance of the lateral left clavicle suggesting a combination of acute and chronic bony injury. Fracture lucencies without bridging callus is seen the region of the coracoid process. 2. The lungs are clear. No evidence of pneumothorax. 3. Moderate size hiatus hernia. Cheo Martínez MD Cervical Spine CT 03/02/17 1342 Signed Impressions: Service Date/Time: Thursday, March 02, 2017 14:52 - CONCLUSION: Negative CT cervical spine. Cheo Martínez MD Objective Remarks GENERAL: 61-year-old chronically ill appearing male HEENT: Healing abrasion left side scalp. TIMOTHY. Scleral icterus. Poor dentition. NECK: Trachea Midline, Trach without bleed RESP: On T piece currently, Coarse breath sounds bilaterally. No wheezing or crackles. CARDIOVASCULAR: Tachycardia, RR. S1, S2. No S4. ABDOMEN: Distended, soft, nontender, no guarding, bowel sounds hyperactive. G- tube in place : Johns in place with conrad urine output. mild/moderate scrotal edema. MUSCULOSKELETAL: No obvious deformity. 1+ to 2+ edema all extremities NEUROLOGICAL: Awake and alert, following commands. Grade 3 power in upper extremities distally. Can wiggle his toes. A/P Assessment and Plan Neuro/Psych: Osmotic demyelination syndrome Acute toxic metabolic encephalopathy secondary to hypercarbic respiratory failure Alcohol dependence Seizures (History of EtOH induced seizure withdrawal) Chronic benzodiazepine use Bilateral thalamic CVA Off all sedation. oxycodone 5 mg every 4 hours as needed for pain. Ativan 0.5 mg PRN for sz MRI 03/21 - findings consistent with Osmotic demyelination syndrome. ODS most likely from rapid correction of Na, with underlying alcoholism. ( Patient was profoundly hypotensive in shock requiring multiple pressors at that time) MRI brain 03/28 revealed subacute bilateral thalamic lacunar infarcts, ODS. CT head 03/05 revealed no acute intracranial findings Continue thiamine 100 mg daily Seen by neurology/Dr. Mazariegos. EEG previously with persistent. continue Keppra 1000mg BID Respiratory: Acute hypoxemic hypercapnic respiratory failure Spontaneous breathing trials daily. Tolerating T piece since morning on 05/04. Continue T piece as tolerated. Ventilator bundle, s/p trach 04/16 Bronchodilator therapy every 6 hours and as needed Pulm toilet, trach care. Cardiovascular: Chronic Systolic heart failure Echocardiogram 03/04 revealed EF 35-40%. Mild MR. Left atrium dilated. JANE 33 mmHg s/p hydrocortisone. Continue midodrine 10 mg 3 times Monitor HR and BP keep MAP>65mmHg Renal/FEN: Acute Kidney Injury Rhabdomyolysis- resolved ODS-see neuro Hypernatremia - resolving Monitor renal function, I/O's, electrolytes replacement per protocol. DC D5/2 NS 04/21 GI: EtOH cirrhosis Hyperammonemia Hiatal hernia Sigmoid diverticulosis Hypoalbuminemia Tube feeds via PEG tube-(Jevity 1.5 with goal rate 60ml/hr). Tube feeds held on 05/06 due to increasing abd distension, tube feeds being resumed on 05/09. KUB revealed dilated bowel loops. GI consult requested on 05/06. Lactulose increased with good response copious bowel movements and decrease in abdominal distention. Tube feeds being resumed on 05/07. Repeat KUB ordered on 05/08. CT abdomen pelvis 05/08 with oral/ IV contrast revealed cirrhotic liver, spleen or megaly, free fluid in abdomen and ileus pattern. s/p PEG tube placement 04/15 CT abdomen/pelvis 04/16: Cirrhosis of liver, splenomegaly, anasarca, ascites(mild ) On Xifaxan 550 twice a day/lactulose 30 twice a day. US Liver 04/15: Abnormal appearance of the pancreas with a nonspecific hypoechoic area involving the posterior part of the pancreas along the head and body region. Fatty infiltration throughout the liver. There is thickening of the gallbladder wall at 6 mm. Suggestive of chronic gallbladder disease. Small amount of free fluid adjacent to the liver and spleen in the upper abdomen. Right-sided pleural effusion. 03/20 Ultrasound liver-hepatosplenomegaly. Sludge in gallbladder Prevacid Heme: Leukocytosis Macrocytic anemia - now normocytic Monitor CBC. No indications for transfusion of blood B12 1452, Folate 15.2. TSH 0.8. ID: Aspiration pneumonia, PSAE in sputum Escherichia coli UTI 03/11 - completed therapy Acinetobacter pneumonia Pertinent cultures 04/29 - MDR Acinetobacter 04/26 - urine -C. albicans 04/15 Sputum cx: PSAE 04/15 urine cx: Klebsiella 04/15 BC: NGTD 04/12 BC: NGTD 04/08 - blood cultures 2 - no growth 04/08 - sputum - no growth 04/05 - urine -C GLABRATA AND C. ALBICANS 03/29 - blood cultures 2 - NGTD 03/25 - sputum --Acinetobacter. 03/25 - urine - NGTD 03/25 - blood cultures 2 -no growth 03/22 - urine - no growth 03/22 - blood cultures 2 - negative 03/20 - blood cultures 2 - no growth 03/11 - urine - Escherichia coli 03/02 - blood cultures 2 - no growth Followed by Dr. Lisa/ID. Changed Zosyn to cefepime 04/17 Levaquin started 04/20/17 by ID. Complete therapy by 04/30/17 Started Diflucan 100 daily 04/26 for C. albicans funguria - to complete 7 days of therapy Off Flagyl po 03/24 Procalcitonin level: 0.40, C-diff PCR negative 04/10 Colistin nebs for MDRO Acinetobacter in sputum 04/29 Endocrine: Hyperglycemia of critical illness History of hypothyroidism SSI with Accu-Cheks every 4 hours to maintain euglycemia MSK: History of old left clavicle fracture PT/OT evaluate and treat Access Peripheral IV. Prophylaxis: GI -Prevacid DVT - SCD/heparin subcutaneous Palliative care is following code status changed to full code per daughter's request. Tamanna Sandhu, daughter/ HCP: from [facility] [phone] now confirmed transferred to [facility] in [place] facility ) Code status -full code CM working on LTAC placement Level 3 Elliott Rock MD May 10, 2017 13:35
--- NOTE | 2017-05-10 16:32 | HHI.GIFU ---
Subjective Remarks Pt resting in bed in no apparent distress. nonverbal but indicates no abdominal pain, no pain with TF. Per RN he is having frequent diarrhea. Tolerating TF @ 40ml/hr. (Jackie Styles) Objective Vitals I&O Vital Signs Date Time Temp Pulse Resp B/P Pulse Ox O2 Delivery O2 Flow Rate FiO2 05/10/17 14:00 81 05/10/17 12:00 79 05/10/17 12:00 98.5 79 18 104/64 99 05/10/17 10:00 82 05/10/17 08:00 98.4 76 23 123/69 100 05/10/17 08:00 76 05/10/17 07:54 99 T-piece 5.00 28 05/10/17 06:00 86 05/10/17 04:00 98.5 80 23 124/73 98 05/10/17 04:00 80 05/10/17 02:00 81 05/10/17 00:00 98.7 85 20 128/73 96 05/10/17 00:00 85 05/09/17 22:00 88 05/09/17 21:30 98 T-piece 6.00 28 05/09/17 20:00 98.4 83 19 106/61 97 05/09/17 20:00 79 05/09/17 18:00 89 I/O 05/09/17 05/09/17 05/09/17 05/10/17 05/10/17 05/10/17 07:00 15:00 23:00 07:00 15:00 23:00 Intake Total 171 ml 809 ml 424 ml 543 ml 804 ml Output Total 250 ml 375 ml 250 ml 250 ml 225 ml Balance -79 ml 434 ml 174 ml 293 ml 579 ml IV Total 151 ml 582 ml 394 ml 513 ml 551 ml Tube Feeding 0 ml 27 ml 153 ml Tube Irrigant 200 ml 100 ml Other 20 ml 30 ml 30 ml Output Urine Total 250 ml 375 ml 250 ml 250 ml 225 ml # Bowel Movements 1 2 1 2 2 Physical Exam HEENT: EOMI Normocephalic; atraumatic; CHEST: Coarse sounds, on vent to trach CARDIAC: RRR ABDOMEN: Soft, mildly distended, tympanitic,nontender; bowel sounds are present in all four quadrants. Peg site without redness, swelling, drainage, no TTP site. EXTREMITIES: No clubbing, cyanosis, BLE 2+ pitting edema, general edema SKIN: no rash; no jaundice. 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 PEG site looks good and pt denies pain on palpation PEG site, abd. CT 05-08-17 --> significant fluid throughout abdomina and pelvis with what appears to be cirrhotic looking liver and splenomegaly, significant sm bowel wall thickening throughout lower abd adn upper pelvis w/o evidence obstruction - possible ileus - improving. copious BMs xray 05-08-17 --> diffuse, mild gaseous distention of small bowel, no findings to indicate obstruction xray 05-06-17--> 1. Findings consistent with moderate adynamic ileus versus partial distal small bowel obstruction. - Elevated LFTs/Liver cirrhosis. Pt with hx of alcohol abuse. MELD 25. T. Bili 1.5, AST 159, 88, Alk Phosph 526- likely combination of alcohol abuse on underlying cirrhosis, possible some congestive component. - Coagulopathy. improving PT 12.6, INR 1.1. - Anemia. HH stable. No active bleeding. - Resp. Failure/PNA. Vent per CCM. trach. 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 thalamic CVA. S/P Neuro eval. Lactulose, Xifaxan. - MAXIME with electrolyte abnormalities. Per renal/CCM - Leukocytosis with UTI (S/P Tx), PNA. - CHF, Hx hypothyroidism per CCM PLAN: - stool cx - hold lactulose - continue TF - further recommendations based on results above - This pt seen by myself and Dr Durham and this note is written on his behalf (Jackie Styles) Physician Comments patient seen and examined agree with above cont current supportive care monitor labs hold lactulose and check stools (Miko Durham MD) Jackie Styles May 10, 2017 16:32 Miko Durham MD May 10, 2017 18:15
[2017-05-10] MEDS ORDERED: LACTULOSE SYRUP 20 GM/30 ML CUP PO PRN (17:00)
[2017-05-11] VITALS (18 sets, daily range): BP systolic 106–137; BP diastolic 57–78; PULSE 83–99; RESP 21–27; TEMP 98–99; O2SAT 92–100
[2017-05-11] MEDS: MIDODRINE 5 MG TAB PO SCH ×3 (05:31→20:52)
[2017-05-11] MEDS: CHLORHEXIDINE 0.12% (ORAL KIT) 15 ML CUP MT SCH ×3 (05:32→20:52)
[2017-05-11] MEDS: RESP: COLISTIN 150 MG VIAL NEB SCH ×2 (07:56→22:09)
[2017-05-11] MEDS: RIFAXIMIN 550 MG TAB PO SCH ×2 (08:04→20:52)
[2017-05-11] MEDS: THIAMINE HCL 100 MG TAB PO SCH (08:05)
[2017-05-11] MEDS: LANSOPRAZOLE SOLUTAB 30 MG TAB NG SCH (08:05)
[2017-05-11] MEDS: levETIRAcetam 500 MG/5 ML UDC NG SCH ×2 (08:05→20:53)
[2017-05-11] MEDS: HEPARIN SODIUM - SQ 10,000 UNITS/ML VIAL SQ SCH ×2 (08:05→20:54)
[2017-05-11] MEDS: LACTOBACILLUS ACIDOPHILUS TAB PO SCH ×3 (08:05→18:00)
[2017-05-11] MEDS: ARTIFICIAL TEARS OPTH SOLN 15 ML BTL EACH EYE SCH ×3 (08:06→18:00)
[2017-05-11] MEDS: SODIUM CHLORIDE 0.9% FLUSH 10 ML FLUSH IV FLUSH SCH ×2 (08:06→20:57)
[2017-05-11] MEDS: MUPIROCIN 2% OINT 1 APPLIC/GM SYR EACH NARE SCH ×2 (08:08→20:58)
[2017-05-11] MEDS: NYSTATIN 100,000 U/GM PWD 15 GM BTL TOPICAL SCH ×2 (08:08→20:55)
[2017-05-11] MEDS: SODIUM HYPOCHLORITE 0.125% 500 ML BTL TOPICAL SCH (08:08)
[2017-05-11] MEDS: SODIUM CHLORIDE 0.9% FLUSH 10 ML FLUSH IVF SCH (08:09)
[2017-05-11 08:23] LABS: C. DIFF EPI 027 PRESUMPTIVE NEGATIVE (NEGATIVE); C. DIFF TOXIN PCR NEGATIVE (NEGATIVE)
[2017-05-11] MEDS: INSULIN NovoLIN REGULAR SUPPLEMENTAL SCALE SQ SCH ×2 (09:00→20:54)
[2017-05-11] MEDS: ACETAMINOPHEN 325 MG TAB PO PRN (10:21)
[2017-05-11] MEDS: DEXT 5%-NACL 0.9% 1000 ML INJ 1,000 ML IV SCH (10:40)
--- NOTE | 2017-05-11 10:44 | HHI.PR ---
Subjective Remarks Patient reports back pain. Otherwise he has no complaints. Trached. Unable to vocalize. Objective Vitals Vital Signs Date Time Temp Pulse Resp B/P Pulse Ox O2 Delivery O2 Flow Rate FiO2 05/11/17 07:57 97 T-piece 6.00 28 05/11/17 06:00 97 25 109/57 96 05/11/17 06:00 97 05/11/17 05:00 90 25 119/73 96 05/11/17 05:00 90 05/11/17 04:00 99.0 90 24 120/78 93 05/11/17 04:00 90 05/11/17 03:00 84 24 118/72 96 05/11/17 03:00 84 05/11/17 02:00 94 21 133/78 92 05/11/17 02:00 94 05/11/17 01:01 98 25 137/78 98 05/11/17 01:01 98 05/11/17 01:00 92 05/11/17 01:00 92 25 93 05/11/17 00:00 98.6 83 21 115/71 97 05/11/17 00:00 83 05/10/17 23:00 86 20 124/77 98 05/10/17 23:00 86 05/10/17 22:00 82 19 123/72 97 05/10/17 22:00 82 05/10/17 21:00 89 24 117/72 98 05/10/17 21:00 89 05/10/17 20:00 98.8 76 22 110/69 05/10/17 20:00 76 05/10/17 19:19 100 T-piece 5.00 28 05/10/17 19:00 91 21 133/80 99 05/10/17 19:00 91 05/10/17 18:00 81 05/10/17 18:00 81 21 120/71 100 05/10/17 17:00 83 25 115/67 100 05/10/17 16:00 79 05/10/17 16:00 98.4 79 18 123/70 100 05/10/17 14:00 81 05/10/17 12:00 79 05/10/17 12:00 98.5 79 18 104/64 99 I/O 05/10/17 05/10/17 05/10/17 05/11/17 05/11/1717 07:00 15:00 23:00 07:00 15:00 23:00 Intake Total 543 ml 804 ml 1072 ml 1016 ml Output Total 250 ml 225 ml 160 ml 170 ml Balance 293 ml 579 ml 912 ml 846 ml IV Total 513 ml 551 ml 659 ml 552 ml Tube Feeding 153 ml 353 ml 404 ml Tube Irrigant 100 ml 60 ml 60 ml Other 30 ml Output Urine Total 250 ml 225 ml 160 ml 170 ml # Bowel Movements 2 3 1 1 Result Diagram: 05/08/17 0445 05/08/17 0445 Objective Remarks GENERAL: Frail patient, appears older than stated age. CARDIOVASCULAR: Rate in the 90s and regular rhythm without murmurs, gallops, or rubs. RESPIRATORY: Trachea in place. Shallow breathing. Diffuse rhonchi bilaterally. GASTROINTESTINAL: Abdomen soft, non-distended. Normal active bowel sounds MUSCULOSKELETAL: Extremities without cyanosis, or edema. NEURO: Follow some commands. Generally weak. 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 Status: Acute (3) Acute hypoxemic respiratory failure ICD Code: J96.01 Status: Acute (4) Hepatic encephalopathy ICD Code: K72.90 Status: Resolved (5) Hypokalemia ICD Code: E87.6 Status: Resolved (6) Lactic acidosis ICD Code: E87.2 Status: Resolved (7) Altered mental status ICD Code: R41.82 Status: Resolved (8) Elevated troponin ICD Code: R74.8 Status: Resolved (9) Hyponatremia ICD Code: E87.1 Status: Resolved (10) Liver disease ICD Code: K76.9 Status: Chronic Assessment and Plan Osmotic demyelination syndrome Acute toxic metabolic encephalopathy secondary to hypercarbic respiratory failure Alcohol dependence Seizures (History of EtOH induced seizure withdrawal) Chronic benzodiazepine use Bilateral thalamic CVA Off all sedation. oxycodone 5 mg every 4 hours as needed for pain. Ativan 0.5 mg PRN for sz MRI 03/21 - findings consistent with Osmotic demyelination syndrome. ODS most likely from rapid correction of Na, with underlying alcoholism. ( Patient was profoundly hypotensive in shock requiring multiple pressors at that time) MRI brain 03/28 revealed subacute bilateral thalamic lacunar infarcts, ODS. CT head 03/05 revealed no acute intracranial findings Continue thiamine 100 mg daily Seen by neurology/Dr. Mazariegos. EEG previously with persistent. continue Keppra 1000mg BID Acute hypoxemic hypercapnic respiratory failure Status post intubation and extubation. Status post trach on 04/16 Consult pulmonology for trach management. Chronic Systolic heart failure Echocardiogram 03/04 revealed EF 35-40%. Mild MR. Left atrium dilated. JANE 33 mmHg s/p hydrocortisone. Continue midodrine 10 mg 3 times Monitor HR and BP keep MAP>65mmHg EtOH cirrhosis Hyperammonemia Hiatal hernia Sigmoid diverticulosis Hypoalbuminemia Tube feeds via PEG tube-(Jevity 1.5 with goal rate 60ml/hr). Tube feeds held on 05/06 due to increasing abd distension, tube feeds being resumed on 05/09. KUB revealed dilated bowel loops. GI consult requested on 05/06. Lactulose increased with good response copious bowel movements and decrease in abdominal distention. Tube feeds being resumed on 05/07. Repeat KUB ordered on 05/08. CT abdomen pelvis 05/08 with oral/ IV contrast revealed cirrhotic liver, spleen or megaly, free fluid in abdomen and ileus pattern. s/p PEG tube placement 04/15 CT abdomen/pelvis 04/16: Cirrhosis of liver, splenomegaly, anasarca, ascites(mild ) On Xifaxan 550 twice a day/lactulose 30 twice a day. US Liver 04/15: Abnormal appearance of the pancreas with a nonspecific hypoechoic area involving the posterior part of the pancreas along the head and body region. Fatty infiltration throughout the liver. There is thickening of the gallbladder wall at 6 mm. Suggestive of chronic gallbladder disease. Small amount of free fluid adjacent to the liver and spleen in the upper abdomen. Right-sided pleural effusion. 03/20 Ultrasound liver-hepatosplenomegaly. Sludge in gallbladder Prevacid Leukocytosis Macrocytic anemia - now normocytic Monitor CBC. No indications for transfusion of blood B12 1452, Folate 15.2. TSH 0.8. Aspiration pneumonia, PSAE in sputum Escherichia coli UTI 03/11 - completed therapy Acinetobacter pneumonia Pertinent cultures 04/29 - MDR Acinetobacter 04/26 - urine -C. albicans 04/15 Sputum cx: PSAE 04/15 urine cx: Klebsiella 04/15 BC: NGTD 04/12 BC: NGTD 04/08 - blood cultures 2 - no growth 04/08 - sputum - no growth 04/05 - urine -C GLABRATA AND C. ALBICANS 03/29 - blood cultures 2 - NGTD 03/25 - sputum --Acinetobacter. 03/25 - urine - NGTD 03/25 - blood cultures 2 -no growth 03/22 - urine - no growth 03/22 - blood cultures 2 - negative 03/20 - blood cultures 2 - no growth 03/11 - urine - Escherichia coli 03/02 - blood cultures 2 - no growth Followed by Dr. Lisa/ID. Changed Zosyn to cefepime 04/17 Levaquin started 04/20/17 by ID. Complete therapy by 04/30/17 Started Diflucan 100 daily 04/26 for C. albicans funguria - to complete 7 days of therapy Off Flagyl po 03/24 Procalcitonin level: 0.40, C-diff PCR negative 04/10 Colistin nebs for MDRO Acinetobacter in sputum 04/29 Hyperglycemia of critical illness History of hypothyroidism SSI with Accu-Cheks every 4 hours to maintain euglycemia History of old left clavicle fracture PT/OT evaluate and treat GI -Prevacid DVT - SCD/heparin subcutaneous Palliative care is following. full code per daughter's request. Tamanna Sandhu, daughter/ HCP: from [facility] [phone] now confirmed transferred to [facility] in [place] facility ([phone]) Code status -full code CM working on LTAC placement Problem Qualifiers (1) Altered mental status: Qualified Code: R41.82 - Altered mental status, unspecified altered mental status type Al Perez MD May 11, 2017 10:44
--- NOTE | 2017-05-11 13:46 | HHI.GIFU ---
Subjective Remarks Intubated comfortable in bed Discussed with nurse no diarrhea today lactulose on hold Objective Vitals I&O Vital Signs Date Time Temp Pulse Resp B/P Pulse Ox O2 Delivery O2 Flow Rate FiO2 05/11/17 10:00 84 05/11/17 08:00 98.2 93 24 106/67 96 05/11/17 08:00 84 05/11/17 07:57 97 T-piece 6.00 28 05/11/17 06:00 97 25 109/57 96 05/11/17 06:00 97 05/11/17 05:00 90 25 119/73 96 05/11/17 05:00 90 05/11/17 04:00 99.0 90 24 120/78 93 05/11/17 04:00 90 05/11/17 03:00 84 24 118/72 96 05/11/17 03:00 84 05/11/17 02:00 94 21 133/78 92 05/11/17 02:00 94 05/11/17 01:01 98 25 137/78 98 05/11/17 01:01 98 05/11/17 01:00 92 05/11/17 01:00 92 25 93 05/11/17 00:00 98.6 83 21 115/71 97 05/11/17 00:00 83 05/10/17 23:00 86 20 124/77 98 05/10/17 23:00 86 05/10/17 22:00 82 19 123/72 97 05/10/17 22:00 82 05/10/17 21:00 89 24 117/72 98 05/10/17 21:00 89 05/10/17 20:00 98.8 76 22 110/69 05/10/17 20:00 76 05/10/17 19:19 100 T-piece 5.00 28 05/10/17 19:00 91 21 133/80 99 05/10/17 19:00 91 05/10/17 18:00 81 05/10/17 18:00 81 21 120/71 100 05/10/17 17:00 83 25 115/67 100 05/10/17 16:00 79 05/10/17 16:00 98.4 79 18 123/70 100 05/10/17 14:00 81 I/O 6/9/17 6/9/17 05/10/17 05/11/17 05/11/17 05/11/17 07:00 15:00 23:00 07:00 15:00 23:00 Intake Total 543 ml 804 ml 1072 ml 1016 ml Output Total 250 ml 225 ml 160 ml 170 ml Balance 293 ml 579 ml 912 ml 846 ml IV Total 513 ml 551 ml 659 ml 552 ml Tube Feeding 153 ml 353 ml 404 ml Tube Irrigant 100 ml 60 ml 60 ml Other 30 ml Output Urine Total 250 ml 225 ml 160 ml 170 ml # Bowel Movements 2 3 1 1 Laboratory Laboratory Tests Test 05/11/17 06:00 Stool C. difficile Toxin (PCR) NEGATIVE Stl C. difficile Toxin PRESUMPTIVE Epiderm 027 NEGATIVE Date/Time Procedure Status Source Growth 05/11/17 06:00 - Final Complete Stool Stool NO ENTERIC PATHOGENS DETECTED BY PCR... Physical Exam HEENT: EOMI Normocephalic; atraumatic; CHEST: Coarse sounds, on vent to trach CARDIAC: RRR ABDOMEN: Soft, mildly distended, tympanitic,nontender; bowel sounds are present in all four quadrants. Peg site without redness, swelling, drainage, no TTP site. EXTREMITIES: No clubbing, cyanosis, BLE 2+ pitting edema, general edema SKIN: no rash; no jaundice. 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 PEG site looks good and pt denies pain on palpation PEG site, abd. CT 05-08-17 --> significant fluid throughout abdomina and pelvis with what appears to be cirrhotic looking liver and splenomegaly, significant sm bowel wall thickening throughout lower abd adn upper pelvis w/o evidence obstruction - possible ileus - improving. copious BMs xray 05-08-17 --> diffuse, mild gaseous distention of small bowel, no findings to indicate obstruction xray 05-06-17--> 1. Findings consistent with moderate adynamic ileus versus partial distal small bowel obstruction. - Elevated LFTs/Liver cirrhosis. Pt with hx of alcohol abuse. MELD 25. T. Bili 1.5, AST 159, 88, Alk Phosph 526- likely combination of alcohol abuse on underlying cirrhosis, possible some congestive component. - Coagulopathy. improving PT 12.6, INR 1.1. - Anemia. HH stable. No active bleeding. - Resp. Failure/PNA. Vent per CCM. trach. 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 thalamic CVA. S/P Neuro eval. Lactulose, Xifaxan. - MAXIME with electrolyte abnormalities. Per renal/CCM - Leukocytosis with UTI (S/P Tx), PNA. - CHF, Hx hypothyroidism per CCM PLAN: - stool cx is negative for C. difficile -May resume lactulose as needed - continue TF -Continue with current supportive care and monitor labs Miko Durham MD May 11, 2017 13:46
[2017-05-11] MEDS: RESP: ALBUTEROL 2.5 MG/3 ML NEB (PRN) INH (19:48)
[2017-05-12] VITALS (13 sets, daily range): BP systolic 104–131; BP diastolic 62–79; PULSE 82–108; RESP 18–28; TEMP 97.3–99.5; O2SAT 93–100
[2017-05-12] MEDS: MIDODRINE 5 MG TAB PO SCH ×3 (05:21→22:07)
[2017-05-12 06:30] LABS: HEMATOCRIT 25.7 % (39.0-51.0); MEAN CELL VOLUME 97.7 FL (80.0-100.0); MEAN CORPUSCULAR HEMOGLOBIN 33.2 PG (27.0-34.0); PLATELET COUNT 173 TH/MM3 (150-450); RED BLOOD COUNT 2.63 MIL/MM3 (4.50-5.90); RED CELL DISTRIBUTION WIDTH 15.1 % (11.6-17.2); REVIEW FLAG FINAL; WHITE BLOOD COUNT 10.3 TH/MM3 (4.0-11.0)
[2017-05-12 07:05] LABS: BICARBONATE 23.2 MEQ/L (21.0-32.0); INDIRECT BILIRUBIN 0.4 MG/DL (0.0-0.8)
[2017-05-12 07:12] LABS: POTASSIUM 2.9 MEQ/L (3.5-5.1)
[2017-05-12] MEDS: RESP: COLISTIN 150 MG VIAL NEB SCH ×2 (07:51→20:16)
[2017-05-12] MEDS: CHLORHEXIDINE 0.12% (ORAL KIT) 15 ML CUP MT SCH ×2 (08:00→20:00)
[2017-05-12] MEDS: DEXT 5%-NACL 0.9% 1000 ML INJ 1,000 ML IV SCH ×2 (08:32)
[2017-05-12] MEDS: POTASSIUM CHLOR 20 MEQ PREMIX 100 ML IV PRN ×4 (08:32→16:58)
[2017-05-12] MEDS: MUPIROCIN 2% OINT 1 APPLIC/GM SYR EACH NARE SCH (09:00)
[2017-05-12] MEDS: SODIUM CHLORIDE 0.9% FLUSH 10 ML FLUSH IV FLUSH SCH ×2 (09:00→22:06)
[2017-05-12] MEDS: INSULIN NovoLIN REGULAR SUPPLEMENTAL SCALE SQ SCH ×2 (09:00→21:00)
[2017-05-12] MEDS: SODIUM CHLORIDE 0.9% FLUSH 10 ML FLUSH IVF SCH (09:00)
[2017-05-12] MEDS: SODIUM HYPOCHLORITE 0.125% 500 ML BTL TOPICAL SCH (09:52)
[2017-05-12] MEDS: HEPARIN SODIUM - SQ 10,000 UNITS/ML VIAL SQ SCH ×2 (09:53→22:07)
[2017-05-12] MEDS: NYSTATIN 100,000 U/GM PWD 15 GM BTL TOPICAL SCH ×2 (09:53→21:00)
[2017-05-12] MEDS: RIFAXIMIN 550 MG TAB PO SCH ×2 (09:53→22:07)
[2017-05-12] MEDS: ARTIFICIAL TEARS OPTH SOLN 15 ML BTL EACH EYE SCH ×3 (09:53→16:57)
[2017-05-12] MEDS: LANSOPRAZOLE SOLUTAB 30 MG TAB NG SCH (09:53)
[2017-05-12] MEDS: LACTOBACILLUS ACIDOPHILUS TAB PO SCH ×3 (09:54→16:57)
[2017-05-12] MEDS: levETIRAcetam 500 MG/5 ML UDC NG SCH ×2 (09:54→22:06)
[2017-05-12] MEDS: ACETAMINOPHEN 325 MG TAB PO PRN (09:54)
[2017-05-12] MEDS: THIAMINE HCL 100 MG TAB PO SCH (11:30)
--- NOTE | 2017-05-12 12:43 | HHI.PR ---
Subjective Remarks Patient is awake and alert. He has no complaints today. Discussed with RN. He seems to get very tired/sleepy with the oxycodone. Potassium is critically low. Objective Vitals Vital Signs Date Time Temp Pulse Resp B/P Pulse Ox O2 Delivery O2 Flow Rate FiO2 05/12/17 12:00 90 05/12/17 10:00 90 05/12/17 08:00 97.6 85 20 110/62 100 05/12/17 08:00 90 05/12/17 07:52 95 T-piece 6.00 21 05/12/17 07:31 16 05/12/17 06:00 91 05/12/17 04:00 99.5 108 25 128/79 93 05/12/17 04:00 108 05/12/17 02:00 96 05/12/17 00:00 97.3 101 28 131/79 94 05/12/17 00:00 101 05/11/17 22:00 99 05/11/17 20:00 98.3 96 22 117/70 97 05/11/17 20:00 96 05/11/17 19:48 96 T-piece 6.00 28 05/11/17 18:00 84 05/11/17 16:00 84 05/11/17 16:00 98.8 91 27 118/71 100 05/11/17 14:00 84 I/O 05/11/17 05/11/17 05/11/17 05/12/17 05/12/17 05/12/17 07:00 15:00 23:00 07:00 15:00 23:00 Intake Total 1016 ml 1207 ml 870 ml 1291 ml Output Total 170 ml 201 ml 150 ml 250 ml Balance 846 ml 1006 ml 720 ml 1041 ml IV Total 552 ml 439 ml 568 ml 623 ml Tube Feeding 404 ml 568 ml 62 ml 468 ml Tube Irrigant 60 ml Other 200 ml 240 ml 200 ml Output Urine Total 170 ml 200 ml 150 ml 250 ml Stool Total 1 ml # Bowel Movements 1 0 1 Result Diagram: 05/12/17 0550 05/12/17 0550 Objective Remarks GENERAL: Frail patient, appears older than stated age. CARDIOVASCULAR: Rate in the 90s and regular rhythm without murmurs, gallops, or rubs. RESPIRATORY: Trachea in place. Shallow breathing. Diffuse rhonchi bilaterally. GASTROINTESTINAL: Abdomen soft, non-distended. Normal active bowel sounds MUSCULOSKELETAL: Extremities without cyanosis, or edema. NEURO: Follow some commands. Generally weak. 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 Status: Acute (3) Acute hypoxemic respiratory failure ICD Code: J96.01 Status: Acute (4) Hepatic encephalopathy ICD Code: K72.90 Status: Resolved (5) Hypokalemia ICD Code: E87.6 Status: Resolved (6) Lactic acidosis ICD Code: E87.2 Status: Resolved (7) Altered mental status ICD Code: R41.82 Status: Resolved (8) Elevated troponin ICD Code: R74.8 Status: Resolved (9) Hyponatremia ICD Code: E87.1 Status: Resolved (10) Liver disease ICD Code: K76.9 Status: Chronic Assessment and Plan Osmotic demyelination syndrome Acute toxic metabolic encephalopathy secondary to hypercarbic respiratory failure Alcohol dependence Seizures (History of EtOH induced seizure withdrawal) Chronic benzodiazepine use Bilateral thalamic CVA Off all sedation. Change oxycodone to Roxanol. Ativan 0.5 mg PRN for sz MRI 03/21 - findings consistent with Osmotic demyelination syndrome. ODS most likely from rapid correction of Na, with underlying alcoholism. ( Patient was profoundly hypotensive in shock requiring multiple pressors at that time) MRI brain 03/28 revealed subacute bilateral thalamic lacunar infarcts, ODS. CT head 03/05 revealed no acute intracranial findings Continue thiamine 100 mg daily Seen by neurology/Dr. Mazariegos. EEG previously with persistent. continue Keppra 1000mg BID Acute hypoxemic hypercapnic respiratory failure Status post intubation and extubation. Status post trach on 04/16 Consult pulmonology for trach management. Chronic Systolic heart failure Echocardiogram 03/04 revealed EF 35-40%. Mild MR. Left atrium dilated. JANE 33 mmHg s/p hydrocortisone. Continue midodrine 10 mg 3 times Monitor HR and BP keep MAP>65mmHg EtOH cirrhosis Hyperammonemia Hiatal hernia Sigmoid diverticulosis Hypoalbuminemia Tube feeds via PEG tube-(Jevity 1.5 with goal rate 60ml/hr). Tube feeds held on 05/06 due to increasing abd distension, tube feeds being resumed on 05/09. KUB revealed dilated bowel loops. GI consult requested on 05/06. Lactulose increased with good response copious bowel movements and decrease in abdominal distention. Tube feeds being resumed on 05/07. Repeat KUB ordered on 05/08. CT abdomen pelvis 05/08 with oral/ IV contrast revealed cirrhotic liver, spleen or megaly, free fluid in abdomen and ileus pattern. s/p PEG tube placement 04/15 CT abdomen/pelvis 04/16: Cirrhosis of liver, splenomegaly, anasarca, ascites(mild ) On Xifaxan 550 twice a day/lactulose 30 twice a day. US Liver 04/15: Abnormal appearance of the pancreas with a nonspecific hypoechoic area involving the posterior part of the pancreas along the head and body region. Fatty infiltration throughout the liver. There is thickening of the gallbladder wall at 6 mm. Suggestive of chronic gallbladder disease. Small amount of free fluid adjacent to the liver and spleen in the upper abdomen. Right-sided pleural effusion. 03/20 Ultrasound liver-hepatosplenomegaly. Sludge in gallbladder Prevacid Leukocytosis Macrocytic anemia - now normocytic Monitor CBC. No indications for transfusion of blood B12 1452, Folate 15.2. TSH 0.8. Aspiration pneumonia, PSAE in sputum Escherichia coli UTI 03/11 - completed therapy Acinetobacter pneumonia Pertinent cultures 04/29 - MDR Acinetobacter 04/26 - urine -C. albicans 04/15 Sputum cx: PSAE 04/15 urine cx: Klebsiella 04/15 BC: NGTD 04/12 BC: NGTD 04/08 - blood cultures 2 - no growth 04/08 - sputum - no growth 04/05 - urine -C GLABRATA AND C. ALBICANS 03/29 - blood cultures 2 - NGTD 03/25 - sputum --Acinetobacter. 03/25 - urine - NGTD 03/25 - blood cultures 2 -no growth 03/22 - urine - no growth 03/22 - blood cultures 2 - negative 03/20 - blood cultures 2 - no growth 03/11 - urine - Escherichia coli 03/02 - blood cultures 2 - no growth Followed by Dr. Lisa/ID. Changed Zosyn to cefepime 04/17 Levaquin started 04/20/17 by ID. Complete therapy by 04/30/17 Started Diflucan 100 daily 04/26 for C. albicans funguria - to complete 7 days of therapy Off Flagyl po 03/24 Procalcitonin level: 0.40, C-diff PCR negative 04/10 Colistin nebs for MDRO Acinetobacter in sputum 04/29 Hyperglycemia of critical illness History of hypothyroidism SSI with Accu-Cheks every 4 hours to maintain euglycemia Hypokalemia: Replace per ICU protocol History of old left clavicle fracture PT/OT evaluate and treat GI -Prevacid DVT - SCD/heparin subcutaneous Palliative care is following. full code per daughter's request. Tamanna Sandhu, daughter/ HCP: from [facility] [phone] now confirmed transferred to [facility] in [place] facility ) Code status -full code CM working on LTAC placement. Difficult placement due to trach. Problem Qualifiers (1) Altered mental status: Qualified Code: R41.82 - Altered mental status, unspecified altered mental status type Al Perez MD May 12, 2017 12:43
--- NOTE | 2017-05-12 16:56 | MB ---
cc: Luna LUNDBERG M.D. DATE OF CONSULTATION 05/12/2017 HISTORY OF THE PRESENT ILLNESS The patient is a 61-year-old white male with a history of alcohol abuse and cirrhosis of the liver, was hospitalized here about 2 years ago with life-threatening hyponatremia and presented on this occasion confused, intoxicated, drinking heavily and was quite ill. Admitted to the intensive care unit. Electrolyte abnormalities were corrected. The patient was stabilized and actually was sent to the floor. However, shortly thereafter he developed increasing respiratory difficulty, a helicat was called. He was transferred back to the intensive care unit in mid March and ended up in respiratory failure on a ventilator with tracheostomy and a PEG tube. Over the course of the last month he has had a ups and downs with various infections including pneumonia, has grown multiple organisms primarily gram-negative organisms and has been treated by infectious disease and critical care. For the last several days he has been off the ventilator, on a trache tube with FIO2 of about 35%. Today he has been on room air and sats remain in the upper 90s. His last chest x-ray was on 04/29 and it was interpreted as really revealing no change in what he had had in terms of bilateral basilar minimal air space disease. Very little information is available in the chart and the patient cannot provide any additional information about additional prior history other than that admission in 2014. ALLERGIES THE ONLY ALLERGY LISTED IS PEANUTS. MEDICATIONS Medicines are reviewed in the EMR. He is receiving p.r.n. aerosol therapy and he is currently on no steroid therapy. PHYSICAL EXAMINATION GENERAL: Chronically ill appearing white male. VITAL SIGNS: Afebrile, pulse is 90, respirations 18-22. His blood pressure is 110/62. HEENT: Sclerae pale, anicteric. NECK: The neck veins are not distended. Tracheostomy in place. LUNGS: Reveal some minimal scattered congestion. CARDIOVASCULAR: Heart rate is regular. ABDOMEN: Soft. EXTREMITIES: He does have 1-2+ lower extremity edema. LABORATORY DATA Most recent laboratory white count is 10,000. BUN and creatinine are normal. Sodium is 139. Albumin is 2. Liver functions are still elevated but improved compared to previous. DISCUSSION Mr. Sandhu has probable underlying alcoholic liver disease. We do not have a clear-cut history of prior smoking but may have some underlying obstructive disease, has had a prolonged hospital course, is very debilitated. He is responsive to verbal commands. From a pulmonary standpoint I would recommend as long as he has the tracheostomy, b.i.d. aerosol therapy which will help to prevent increasing congestion. As long as he is remaining afebrile with normal white counts, there is really no indication for additional antibiotics for the lung. Chest x-ray has been stable with some minimal basilar changes. With regard to the tracheostomy, routine ordinary care would be appropriate and eventually if he improves physically we may consider decannulation. I will follow him intermittently to see if at some point in the future removing the tracheostomy would be appropriate, once he is out on the floor hopefully engaged in some form of physical therapy to regain his strength. Further diagnostic and/or therapeutic intervention will depend on his ongoing clinical course. R. Hamlet Lundberg MD RSW/KK /2:23 PM /4:39 PM
[2017-05-12] MEDS: RESP: ALBUTEROL 2.5 MG/3 ML NEB (PRN) INH (20:07)
--- NOTE | 2017-05-12 20:29 | HHI.GIFU ---
Subjective Remarks Patient intubated Objective Vitals I&O Vital Signs Date Time Temp Pulse Resp B/P Pulse Ox O2 Delivery O2 Flow Rate FiO2 05/12/17 20:07 97 T-piece 6.00 21 05/12/17 18:00 90 05/12/17 16:00 98.3 89 18 115/68 96 05/12/17 16:00 90 05/12/17 12:00 90 05/12/17 12:00 98.4 82 21 104/65 100 05/12/17 10:00 90 05/12/17 08:00 97.6 85 20 110/62 100 05/12/17 08:00 90 05/12/17 07:52 95 T-piece 6.00 21 05/12/17 07:31 16 05/12/17 06:00 91 05/12/17 04:00 99.5 108 25 128/79 93 05/12/17 04:00 108 05/12/17 02:00 96 05/12/17 00:00 97.3 101 28 131/79 94 05/12/17 00:00 101 05/11/17 22:00 99 I/O 05/11/17 05/11/17 05/11/17 05/12/17 05/12/17 05/12/17 07:00 15:00 23:00 07:00 15:00 23:00 Intake Total 1016 ml 1207 ml 870 ml 1291 ml 1439 ml Output Total 170 ml 201 ml 150 ml 250 ml 250 ml Balance 846 ml 1006 ml 720 ml 1041 ml 1189 ml IV Total 552 ml 439 ml 568 ml 623 ml 775 ml Tube Feeding 404 ml 568 ml 62 ml 468 ml 464 ml Tube Irrigant 60 ml Other 200 ml 240 ml 200 ml 200 ml Output Urine Total 170 ml 200 ml 150 ml 250 ml 250 ml Stool Total 1 ml # Bowel Movements 1 0 1 1 Laboratory Laboratory Tests Test 05/12/17 05:50 White Blood Count 10.3 Red Blood Count 2.63 Hemoglobin 8.7 Hematocrit 25.7 Mean Corpuscular Volume 97.7 Mean Corpuscular Hemoglobin 33.2 Mean Corpuscular Hemoglobin 34.0 Concent Red Cell Distribution Width 15.1 Platelet Count 173 Mean Platelet Volume 8.0 Sodium Level 139 Potassium Level 2.9 Chloride Level 106 Carbon Dioxide Level 23.2 Anion Gap 10 Blood Urea Nitrogen 5 Creatinine 0.22 Estimat Glomerular Filtration 439 Rate Random Glucose 126 Calcium Level 7.6 Total Bilirubin 1.0 Direct Bilirubin 0.6 Indirect Bilirubin 0.4 Aspartate Amino Transf 92 (AST/SGOT) Alanine Aminotransferase 41 (ALT/SGPT) Alkaline Phosphatase 330 Total Protein 5.9 Albumin 2.0 Date/Time Procedure Status Source Growth 05/11/17 06:00 - Final Complete Stool Stool NO ENTERIC PATHOGENS DETECTED BY PCR... Imaging Last Impressions Abdomen/Pelvis CT 05/08/17 0000 Signed Impressions: Service Date/Time: Monday, May 08, 2017 23:10 - CONCLUSION: Significant fluid throughout the abdomen and the pelvis with what appears to be a cirrhotic appearing liver and splenomegaly. There is significant small bowel wall thickening throughout the lower abdomen and the upper pelvis without evidence of obstruction Milo Muhammad MD Abdomen X-Ray 05/08/17 0000 Signed Impressions: Service Date/Time: Monday, May 08, 2017 15:30 - CONCLUSION: 1. There is diffuse, mild gaseous distention of the small bowel. No findings to indicate obstruction. Mihir Harry MD Chest X-Ray 04/29/17 0600 Signed Impressions: Service Date/Time: Saturday, April 29, 2017 06:19 - CONCLUSION: No significant change Casper Alva MD Liver Ultrasound 04/15/17 0000 Signed Impressions: Service Date/Time: Saturday, April 15, 2017 09:24 - CONCLUSION: 1. Abnormal appearance of the pancreas with a nonspecific hypoechoic area involving the posterior part of the pancreas along the head and body region. Recommend CT scan of the abdomen with oral and IV contrast further evaluation. 2. Fatty infiltration throughout the liver. 3. There is thickening of the gallbladder wall at 6 mm. This is suggestive of chronic gallbladder disease. 4. Small amount of free fluid adjacent to the liver and spleen in the upper abdomen.. 5. Right-sided pleural effusion. Víctor Rosas MD Head CT 04/12/17 0000 Signed Impressions: Service Date/Time: Wednesday, April 12, 2017 21:30 - CONCLUSION: Pontine encephalomalacia. Left mastoiditis. Casper Alva MD Head Magnetic Resonance Angiography 03/28/17 0000 Signed Impressions: Service Date/Time: March 17:22 - CONCLUSION: Unremarkable examination. Bety Castillo MD Brain MRI 03/28/17 0000 Signed Impressions: Service Date/Time: March 17:22 - CONCLUSION: 1. 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 Small subacute ischemic bilateral thalamic infarcts. 2. There has been no significant change when compared to the prior exam. Yinka Harman MD Lower Extremity Ultrasound 03/25/17 0000 Signed Impressions: Service Date/Time: Saturday, March 25, 2017 22:17 - CONCLUSION: No evidence of DVT. Víctor Rosas MD CT Angiography 03/21/17 0000 Signed Impressions: Service Date/Time: March 00:33 - CONCLUSION: No evidence of pulmonary embolism is identified. Mild atelectasis left lung base. Fluid or phlegm within the trachea. Milo Muhammad MD Abdomen Ultrasound 03/20/17 0000 Signed Impressions: Service Date/Time: Monday, March 20, 2017 11:38 - CONCLUSION: 1. Hepatosplenomegaly without focal lesion. 2. Probable sludge within the lumen of the gallbladder. No intrahepatic duct. Cheo Martínez MD Shoulder X-Ray 03/02/17 1404 Signed Impressions: Service Date/Time: Thursday, March 02, 2017 15:18 - CONCLUSION: No evidence of recent bony injury. Deformity of the lateral left clavicle suggests old healed trauma. Cheo Martínez MD Maxillofacial CT 03/02/17 1342 Signed Impressions: Service Date/Time: Thursday, March 02, 2017 14:52 - CONCLUSION: Negative CT of the facial bones. Cheo Martínez MD Chest CT 03/02/17 1342 Signed Impressions: Service Date/Time: Thursday, March 02, 2017 15:04 - CONCLUSION: 1. Abnormal appearance of the lateral left clavicle suggesting a combination of acute and chronic bony injury. Fracture lucencies without bridging callus is seen the region of the coracoid process. 2. The lungs are clear. No evidence of pneumothorax. 3. Moderate size hiatus hernia. Cheo Martínez MD Cervical Spine CT 03/02/17 1342 Signed Impressions: Service Date/Time: Saturday, March 02, 2017 14:52 - CONCLUSION: Negative CT cervical spine. Cheo Martínez MD Physical Exam HEENT: EOMI Normocephalic; atraumatic; CHEST: Coarse sounds, on vent to trach CARDIAC: RRR ABDOMEN: Soft, mildly distended, tympanitic,nontender; bowel sounds are present in all four quadrants. Peg site without redness, swelling, drainage, no TTP site. EXTREMITIES: No clubbing, cyanosis, BLE 2+ pitting edema, general edema SKIN: no rash; no jaundice. [employer]: awake, cooperative with exam Assessment and Plan Plan ASSESSMENT: - abd pain - improved. PEG site looks good and pt denies pain on palpation PEG site tolerating tube feeds, abd. CT 05-08-17 --> significant fluid throughout abdomina and pelvis with what appears to be cirrhotic looking liver and splenomegaly, significant sm bowel wall thickening throughout lower abd adn upper pelvis w/o evidence obstruction - possible ileus - improving. copious BMs xray 05-08-17 --> diffuse, mild gaseous distention of small bowel, no findings to indicate obstruction xray 05-06-17--> 1. Findings consistent with moderate adynamic ileus versus partial distal small bowel obstruction. - Elevated LFTs/Liver cirrhosis. Pt with hx of alcohol abuse. MELD 25. T. Bili 1.5, AST 159, 88, Alk Phosph 526- likely combination of alcohol abuse on underlying cirrhosis, possible some congestive component. - Coagulopathy. improving PT 12.6, INR 1.1. - Anemia. HH stable. No active bleeding. - Resp. Failure/PNA. Vent per CCM. trach. 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 thalamic CVA. S/P Neuro eval. Lactulose, Xifaxan. - MAXIME with electrolyte abnormalities. Per renal/CCM - Leukocytosis with UTI (S/P Tx), PNA. - CHF, Hx hypothyroidism per CCM PLAN: - stool cx is negative for C. difficile -May resume lactulose as needed - continue TF -Continue with current supportive care and monitor labs Not much to add at this point from a GI perspective We will sign off Miko Durham MD May 12, 2017 20:29
[2017-05-13] VITALS (13 sets, daily range): BP systolic 117–134; BP diastolic 72–81; PULSE 77–111; RESP 20–26; TEMP 98.3–99.7; O2SAT 93–100
[2017-05-13] MEDS: MUPIROCIN 2% OINT 1 APPLIC/GM SYR EACH NARE SCH ×3 (00:07→20:40)
[2017-05-13] MEDS: DEXT 5%-NACL 0.9% 1000 ML INJ 1,000 ML IV SCH ×2 (02:40→05:51)
[2017-05-13] MEDS: MIDODRINE 5 MG TAB PO SCH ×3 (05:50→20:40)
[2017-05-13 06:50] LABS: HEMATOCRIT 27.4 % (39.0-51.0); MEAN CELL VOLUME 99.5 FL (80.0-100.0); MEAN CORPUSCULAR HEMOGLOBIN 33.2 PG (27.0-34.0); MEAN CORPUSCULAR HGB CONC 33.4 % (32.0-36.0); PLATELET COUNT 148 TH/MM3 (150-450); RED BLOOD COUNT 2.75 MIL/MM3 (4.50-5.90); RED CELL DISTRIBUTION WIDTH 14.7 % (11.6-17.2); REVIEW FLAG FINAL; WHITE BLOOD COUNT 10.4 TH/MM3 (4.0-11.0)
[2017-05-13 07:09] LABS: BICARBONATE 25.7 MEQ/L (21.0-32.0); MAGNESIUM 1.5 MG/DL (1.5-2.5); POTASSIUM 3.7 MEQ/L (3.5-5.1)
[2017-05-13] MEDS: CHLORHEXIDINE 0.12% (ORAL KIT) 15 ML CUP MT SCH ×2 (08:00→20:39)
[2017-05-13] MEDS: RESP: COLISTIN 150 MG VIAL NEB SCH ×2 (08:14→19:55)
[2017-05-13] MEDS: ARTIFICIAL TEARS OPTH SOLN 15 ML BTL EACH EYE SCH ×3 (08:28→17:37)
[2017-05-13] MEDS: levETIRAcetam 500 MG/5 ML UDC NG SCH ×2 (08:29→20:40)
[2017-05-13] MEDS: LANSOPRAZOLE SOLUTAB 30 MG TAB NG SCH (08:29)
[2017-05-13] MEDS: SODIUM CHLORIDE 0.9% FLUSH 10 ML FLUSH IVF SCH (08:29)
[2017-05-13] MEDS: SODIUM CHLORIDE 0.9% FLUSH 10 ML FLUSH IV FLUSH SCH ×2 (08:29→20:41)
[2017-05-13] MEDS: LACTOBACILLUS ACIDOPHILUS TAB PO SCH ×3 (08:30→17:37)
[2017-05-13] MEDS: THIAMINE HCL 100 MG TAB PO SCH (08:30)
[2017-05-13] MEDS: INSULIN NovoLIN REGULAR SUPPLEMENTAL SCALE SQ SCH ×2 (08:31→20:40)
[2017-05-13] MEDS: RIFAXIMIN 550 MG TAB PO SCH ×2 (08:31→20:40)
[2017-05-13] MEDS: SODIUM HYPOCHLORITE 0.125% 500 ML BTL TOPICAL SCH (08:31)
[2017-05-13] MEDS: HEPARIN SODIUM - SQ 10,000 UNITS/ML VIAL SQ SCH ×2 (08:31→20:40)
[2017-05-13] MEDS: NYSTATIN 100,000 U/GM PWD 15 GM BTL TOPICAL SCH ×2 (08:32→20:41)
--- NOTE | 2017-05-13 15:13 | HHI.PR ---
Subjective Remarks trac in place- room air - minimal secretions- needs suctioning tolerating tube feedings - Kevituy 1.5 max rate 60 cc/h hodgson in place- Objective Vitals Vital Signs Date Time Temp Pulse Resp B/P Pulse Ox O2 Delivery O2 Flow Rate FiO2 05/13/17 14:00 77 05/13/17 12:00 77 05/13/17 12:00 98.8 103 21 117/73 98 05/13/17 10:00 77 05/13/17 08:14 98 T-piece 6.00 21 05/13/17 08:00 77 05/13/17 08:00 98.4 111 25 130/79 93 05/13/17 06:00 103 05/13/17 04:00 98.7 101 20 134/81 96 05/13/17 04:00 100 05/13/17 02:00 101 05/13/17 00:00 98.6 90 20 130/74 100 05/13/17 00:00 90 05/12/17 22:00 94 05/12/17 20:07 97 T-piece 6.00 21 05/12/17 20:00 93 05/12/17 20:00 98.4 93 20 119/72 100 05/12/17 18:00 90 05/12/17 16:00 98.3 89 18 115/68 96 05/12/17 16:00 90 I/O 05/12/17 05/12/17 05/12/17 05/13/17 05/13/17 05/13/17 07:00 15:00 23:00 07:00 15:00 23:00 Intake Total 1291 ml 1439 ml 958 ml 1089 ml 1173 ml Output Total 250 ml 250 ml 300 ml 250 ml 400 ml Balance 1041 ml 1189 ml 658 ml 839 ml 773 ml IV Total 623 ml 775 ml 488 ml 552 ml 610 ml Tube Feeding 468 ml 464 ml 470 ml 477 ml 363 ml Other 200 ml 200 ml 60 ml 200 ml Output Urine Total 250 ml 250 ml 300 ml 250 ml 400 ml Tube Feeding Residual Discard 0 ml # Bowel Movements 1 1 0 0 2 Result Diagram: 05/13/17 0601 05/13/17 0601 Imaging Last Impressions Abdomen/Pelvis CT 05/08/17 0000 Signed Impressions: Service Date/Time: Monday, May 08, 2017 23:10 - CONCLUSION: Significant fluid throughout the abdomen and the pelvis with what appears to be a cirrhotic appearing liver and splenomegaly. There is significant small bowel wall thickening throughout the lower abdomen and the upper pelvis without evidence of obstruction Milo Muhammad MD Abdomen X-Ray 05/08/17 0000 Signed Impressions: Service Date/Time: Monday, May 08, 2017 15:30 - CONCLUSION: 1. There is diffuse, mild gaseous distention of the small bowel. No findings to indicate obstruction. Mihir Harry MD Chest X-Ray 04/29/17 0600 Signed Impressions: Service Date/Time: Saturday, April 29, 2017 06:19 - CONCLUSION: No significant change Casper Alva MD Liver Ultrasound 04/15/17 0000 Signed Impressions: Service Date/Time: Saturday, April 15, 2017 09:24 - CONCLUSION: 1. Abnormal appearance of the pancreas with a nonspecific hypoechoic area involving the posterior part of the pancreas along the head and body region. Recommend CT scan of the abdomen with oral and IV contrast further evaluation. 2. Fatty infiltration throughout the liver. 3. There is thickening of the gallbladder wall at 6 mm. This is suggestive of chronic gallbladder disease. 4. Small amount of free fluid adjacent to the liver and spleen in the upper abdomen.. 5. Right-sided pleural effusion. Víctor Rosas MD Head CT 04/12/17 0000 Signed Impressions: Service Date/Time: Wednesday, April 12, 2017 21:30 - CONCLUSION: Pontine encephalomalacia. Left mastoiditis. Casper Alva MD Head Magnetic Resonance Angiography 03/28/17 0000 Signed Impressions: Service Date/Time: March 17:22 - CONCLUSION: Unremarkable examination. Bety Castillo MD Brain MRI 03/28/17 0000 Signed Impressions: Service Date/Time: March 17:22 - CONCLUSION: 1. 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 Small subacute ischemic bilateral thalamic infarcts. 2. There has been no significant change when compared to the prior exam. Yinka Harman MD Lower Extremity Ultrasound 03/25/17 0000 Signed Impressions: Service Date/Time: Saturday, March 25, 2017 22:17 - CONCLUSION: No evidence of DVT. Víctor Rosas MD CT Angiography 03/21/17 0000 Signed Impressions: Service Date/Time: March 00:33 - CONCLUSION: No evidence of pulmonary embolism is identified. Mild atelectasis left lung base. Fluid or phlegm within the trachea. Milo Muhammad MD Abdomen Ultrasound 03/20/17 0000 Signed Impressions: Service Date/Time: Monday, March 20, 2017 11:38 - CONCLUSION: 1. Hepatosplenomegaly without focal lesion. 2. Probable sludge within the lumen of the gallbladder. No intrahepatic duct. Cheo Martínez MD Shoulder X-Ray 03/02/17 1404 Signed Impressions: Service Date/Time: Thursday, March 02, 2017 15:18 - CONCLUSION: No evidence of recent bony injury. Deformity of the lateral left clavicle suggests old healed trauma. Cheo Martínez MD Maxillofacial CT 03/02/17 1342 Signed Impressions: Service Date/Time: Thursday, March 02, 2017 14:52 - CONCLUSION: Negative CT of the facial bones. Cheo Martínez MD Chest CT 03/02/17 1342 Signed Impressions: Service Date/Time: Thursday, March 02, 2017 15:04 - CONCLUSION: 1. Abnormal appearance of the lateral left clavicle suggesting a combination of acute and chronic bony injury. Fracture lucencies without bridging callus is seen the region of the coracoid process. 2. The lungs are clear. No evidence of pneumothorax. 3. Moderate size hiatus hernia. Cheo Martínez MD Cervical Spine CT 03/02/17 1342 Signed Impressions: Service Date/Time: Thursday, March 02, 2017 14:52 - CONCLUSION: Negative CT cervical spine. 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 Status: Acute (3) Acute hypoxemic respiratory failure ICD Code: J96.01 Status: Acute (4) Hepatic encephalopathy ICD Code: K72.90 Status: Resolved (5) Hypokalemia ICD Code: E87.6 Status: Resolved (6) Lactic acidosis ICD Code: E87.2 Status: Resolved (7) Altered mental status ICD Code: R41.82 Status: Resolved (8) Elevated troponin ICD Code: R74.8 Status: Resolved (9) Hyponatremia ICD Code: E87.1 Status: Resolved (10) Liver disease ICD Code: K76.9 Status: Chronic Assessment and Plan Osmotic demyelination syndrome Acute toxic metabolic encephalopathy secondary to hypercarbic respiratory failure Alcohol dependence Seizures (History of EtOH induced seizure withdrawal) Chronic benzodiazepine use Bilateral thalamic CVA On Roxanol. Ativan 0.5 mg PRN for sz MRI 03/21 - findings consistent with Osmotic demyelination syndrome. ODS most likely from rapid correction of Na, with underlying alcoholism. ( Patient was profoundly hypotensive in shock requiring multiple pressors at that time) MRI brain 03/28 revealed subacute bilateral thalamic lacunar infarcts, ODS. CT head 03/05 revealed no acute intracranial findings Continue thiamine 100 mg daily Seen by neurology/Dr. Mazariegos. EEG previously with persistent. continue Keppra 1000mg BID Acute hypoxemic hypercapnic respiratory failure Status post intubation and extubation. Status post trach on 04/16 Pulmonary service ff for trach management. Chronic Systolic heart failure Echocardiogram 03/04 revealed EF 35-40%. Mild MR. Left atrium dilated. JANE 33 mmHg s/p hydrocortisone. Continue midodrine 10 mg 3 times Monitor HR and BP keep MAP>65mmHg EtOH cirrhosis Hyperammonemia Hiatal hernia Sigmoid diverticulosis Hypoalbuminemia Tube feeds via PEG tube-(Jevity 1.5 with goal rate 60ml/hr). Tube feeds held on 05/06 due to increasing abd distension, tube feeds being resumed on 05/09. KUB revealed dilated bowel loops. GI consult requested on 05/06. Lactulose increased with good response copious bowel movements and decrease in abdominal distention. Tube feeds being resumed on 05/07. Repeat KUB ordered on 05/08. CT abdomen pelvis 05/08 with oral/ IV contrast revealed cirrhotic liver, spleen or megaly, free fluid in abdomen and ileus pattern. s/p PEG tube placement 04/15 CT abdomen/pelvis 04/16: Cirrhosis of liver, splenomegaly, anasarca, ascites(mild ) On Xifaxan 550 twice a day/lactulose 30 twice a day. US Liver 04/15: Abnormal appearance of the pancreas with a nonspecific hypoechoic area involving the posterior part of the pancreas along the head and body region. Fatty infiltration throughout the liver. There is thickening of the gallbladder wall at 6 mm. Suggestive of chronic gallbladder disease. Small amount of free fluid adjacent to the liver and spleen in the upper abdomen. Right-sided pleural effusion. 03/20 Ultrasound liver-hepatosplenomegaly. Sludge in gallbladder Prevacid Leukocytosis Macrocytic anemia - now normocytic Monitor CBC. No indications for transfusion of blood B12 1452, Folate 15.2. TSH 0.8. Aspiration pneumonia, PSAE in sputum Escherichia coli UTI 03/11 - completed therapy Acinetobacter pneumonia Pertinent cultures 04/29 - MDR Acinetobacter 04/26 - urine -C. albicans 04/15 Sputum cx: PSAE 04/15 urine cx: Klebsiella 04/15 BC: NGTD 04/12 BC: NGTD 04/08 - blood cultures 2 - no growth 04/08 - sputum - no growth 04/05 - urine -C GLABRATA AND C. ALBICANS 03/29 - blood cultures 2 - NGTD 03/25 - sputum --Acinetobacter. 03/25 - urine - NGTD 03/25 - blood cultures 2 -no growth 03/22 - urine - no growth 03/22 - blood cultures 2 - negative 03/20 - blood cultures 2 - no growth 03/11 - urine - Escherichia coli 03/02 - blood cultures 2 - no growth Followed by Dr. Lisa/ID. Changed Zosyn to cefepime 04/17 Levaquin started 04/20/17 by ID. Complete therapy by 04/30/17 Started Diflucan 100 daily 04/26 for C. albicans funguria - to complete 7 days of therapy Off Flagyl po 03/24 Procalcitonin level: 0.40, C-diff PCR negative 04/10 Colistin nebs for MDRO Acinetobacter in sputum 04/29 Hyperglycemia of critical illness History of hypothyroidism SSI with Accu-Cheks every 4 hours to maintain euglycemia Hypokalemia: Replace per ICU protocol History of old left clavicle fracture PT/OT evaluate and treat GI -Prevacid DVT - SCD/heparin subcutaneous Palliative care is following. full code per daughter's request. Tamanna Sandhu, daughter/ HCP: from [facility] [phone] now confirmed transferred to [facility] in [place] facility ([phone]) Code status -full code CM working on LTAC placement. Difficult placement due to trach. Transfer to medical floor Problem Qualifiers (1) Altered mental status: Qualified Code: R41.82 - Altered mental status, unspecified altered mental status type Petty Layne MD May 13, 2017 15:12
[2017-05-14] VITALS (11 sets, daily range): BP systolic 105–129; BP diastolic 59–81; PULSE 96–104; RESP 17–26; TEMP 98.1–99.6; O2SAT 93–95
[2017-05-14] MEDS: MORPHINE SULFATE ORAL SOLN 10 MG/0.5 ML SYRINGE G-TUBE PRN ×3 (00:28→22:54)
[2017-05-14] MEDS: MIDODRINE 5 MG TAB PO SCH ×3 (04:54→22:55)
[2017-05-14] MEDS: CHLORHEXIDINE 0.12% (ORAL KIT) 15 ML CUP MT SCH ×2 (08:00→20:00)
[2017-05-14] MEDS: MUPIROCIN 2% OINT 1 APPLIC/GM SYR EACH NARE SCH ×2 (08:00→22:56)
[2017-05-14] MEDS: ARTIFICIAL TEARS OPTH SOLN 15 ML BTL EACH EYE SCH ×3 (08:00→17:11)
[2017-05-14] MEDS: levETIRAcetam 500 MG/5 ML UDC NG SCH ×2 (08:01→22:54)
[2017-05-14] MEDS: HEPARIN SODIUM - SQ 10,000 UNITS/ML VIAL SQ SCH ×2 (08:01→22:56)
[2017-05-14] MEDS: LACTOBACILLUS ACIDOPHILUS TAB PO SCH ×3 (08:01→17:11)
[2017-05-14] MEDS: RIFAXIMIN 550 MG TAB PO SCH ×2 (08:01→22:54)
[2017-05-14] MEDS: LANSOPRAZOLE SOLUTAB 30 MG TAB NG SCH (08:01)
[2017-05-14] MEDS: THIAMINE HCL 100 MG TAB PO SCH (08:01)
[2017-05-14] MEDS: SODIUM HYPOCHLORITE 0.125% 500 ML BTL TOPICAL SCH (08:02)
[2017-05-14] MEDS: SODIUM CHLORIDE 0.9% FLUSH 10 ML FLUSH IV FLUSH SCH ×2 (08:02→22:56)
[2017-05-14] MEDS: NYSTATIN 100,000 U/GM PWD 15 GM BTL TOPICAL SCH ×2 (08:02→21:00)
[2017-05-14] MEDS: INSULIN NovoLIN REGULAR SUPPLEMENTAL SCALE SQ SCH ×2 (08:02→21:00)
[2017-05-14] MEDS: SODIUM CHLORIDE 0.9% FLUSH 10 ML FLUSH IVF SCH (08:02)
[2017-05-14] MEDS: DEXT 5%-NACL 0.9% 1000 ML INJ 1,000 ML IV SCH (08:03)
[2017-05-14] MEDS: RESP: COLISTIN 150 MG VIAL NEB SCH ×2 (08:19→19:44)
--- NOTE | 2017-05-14 12:45 | HHI.PR ---
Subjective Remarks tolerating tube feedings Objective Vitals Vital Signs Date Time Temp Pulse Resp B/P Pulse Ox O2 Delivery O2 Flow Rate FiO2 05/14/17 12:18 Room Air 6.00 21 T-Piece 05/14/17 08:19 94 T-piece 6.00 21 05/14/17 08:00 98.5 100 20 106/60 95 05/14/17 04:00 Room Air T-Piece 05/14/17 04:00 98.4 101 17 105/59 93 05/14/17 01:45 98.1 99 17 118/71 95 05/14/17 00:00 99.6 101 26 129/81 93 05/14/17 00:00 101 05/13/17 22:00 101 05/13/17 20:00 99.7 105 26 124/79 95 05/13/17 20:00 94 21 05/13/17 20:00 105 05/13/17 18:00 77 05/13/17 16:00 98.3 100 22 120/72 98 05/13/17 16:00 77 05/13/17 14:00 77 I/O 05/13/17 05/13/17 05/13/17 05/14/17 05/14/17 05/14/17 07:00 15:00 23:00 07:00 15:00 23:00 Intake Total 1089 ml 1173 ml 1009 ml 1232 ml Output Total 250 ml 400 ml 300 ml 575 ml Balance 839 ml 773 ml 709 ml 657 ml IV Total 552 ml 610 ml 556 ml 752 ml Tube Feeding 477 ml 363 ml 453 ml 480 ml Other 60 ml 200 ml Output Urine Total 250 ml 400 ml 300 ml 575 ml # Bowel Movements 0 2 1 Result Diagram: 05/13/17 0601 05/13/17 0601 Imaging Last Impressions Abdomen/Pelvis CT 05/08/17 0000 Signed Impressions: Service Date/Time: Monday, May 08, 2017 23:10 - CONCLUSION: Significant fluid throughout the abdomen and the pelvis with what appears to be a cirrhotic appearing liver and splenomegaly. There is significant small bowel wall thickening throughout the lower abdomen and the upper pelvis without evidence of obstruction Milo Muhammad MD Abdomen X-Ray 05/08/17 0000 Signed Impressions: Service Date/Time: Monday, May 08, 2017 15:30 - CONCLUSION: 1. There is diffuse, mild gaseous distention of the small bowel. No findings to indicate obstruction. Mihir Harry MD Chest X-Ray 04/29/17 0600 Signed Impressions: Service Date/Time: Saturday, April 29, 2017 06:19 - CONCLUSION: No significant change Casper Alva MD Liver Ultrasound 04/15/17 0000 Signed Impressions: Service Date/Time: Saturday, April 15, 2017 09:24 - CONCLUSION: 1. Abnormal appearance of the pancreas with a nonspecific hypoechoic area involving the posterior part of the pancreas along the head and body region. Recommend CT scan of the abdomen with oral and IV contrast further evaluation. 2. Fatty infiltration throughout the liver. 3. There is thickening of the gallbladder wall at 6 mm. This is suggestive of chronic gallbladder disease. 4. Small amount of free fluid adjacent to the liver and spleen in the upper abdomen.. 5. Right-sided pleural effusion. Víctor Rosas MD Head CT 04/12/17 0000 Signed Impressions: Service Date/Time: Wednesday, April 12, 2017 21:30 - CONCLUSION: Pontine encephalomalacia. Left mastoiditis. Casper Alva MD Head Magnetic Resonance Angiography 03/28/17 0000 Signed Impressions: Service Date/Time: March 17:22 - CONCLUSION: Unremarkable examination. Bety Castillo MD Brain MRI 03/28/17 0000 Signed Impressions: Service Date/Time: March 17:22 - CONCLUSION: 1. 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 Small subacute ischemic bilateral thalamic infarcts. 2. There has been no significant change when compared to the prior exam. Yinka Harman MD Lower Extremity Ultrasound 03/25/17 0000 Signed Impressions: Service Date/Time: Saturday, March 25, 2017 22:17 - CONCLUSION: No evidence of DVT. Víctor Rosas MD CT Angiography 03/21/17 0000 Signed Impressions: Service Date/Time: March 00:33 - CONCLUSION: No evidence of pulmonary embolism is identified. Mild atelectasis left lung base. Fluid or phlegm within the trachea. Milo Muhammad MD Abdomen Ultrasound 03/20/17 0000 Signed Impressions: Service Date/Time: Monday, March 20, 2017 11:38 - CONCLUSION: 1. Hepatosplenomegaly without focal lesion. 2. Probable sludge within the lumen of the gallbladder. No intrahepatic duct. Cheo Martínez MD Shoulder X-Ray 03/02/17 1404 Signed Impressions: Service Date/Time: Thursday, March 02, 2017 15:18 - CONCLUSION: No evidence of recent bony injury. Deformity of the lateral left clavicle suggests old healed trauma. Cheo Martínez MD Maxillofacial CT 03/02/17 1342 Signed Impressions: Service Date/Time: Thursday, March 02, 2017 14:52 - CONCLUSION: Negative CT of the facial bones. Cheo Martínez MD Chest CT 03/02/17 1342 Signed Impressions: Service Date/Time: Thursday, March 02, 2017 15:04 - CONCLUSION: 1. Abnormal appearance of the lateral left clavicle suggesting a combination of acute and chronic bony injury. Fracture lucencies without bridging callus is seen the region of the coracoid process. 2. The lungs are clear. No evidence of pneumothorax. 3. Moderate size hiatus hernia. Cheo Martínez MD Cervical Spine CT 03/02/17 1342 Signed Impressions: Service Date/Time: Thursday, March 02, 2017 14:52 - CONCLUSION: Negative CT cervical spine. 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 Status: Acute (3) Acute hypoxemic respiratory failure ICD Code: J96.01 Status: Acute (4) Hepatic encephalopathy ICD Code: K72.90 Status: Resolved (5) Hypokalemia ICD Code: E87.6 Status: Resolved (6) Lactic acidosis ICD Code: E87.2 Status: Resolved (7) Altered mental status ICD Code: R41.82 Status: Resolved (8) Elevated troponin ICD Code: R74.8 Status: Resolved (9) Hyponatremia ICD Code: E87.1 Status: Resolved (10) Liver disease ICD Code: K76.9 Status: Chronic Assessment and Plan Osmotic demyelination syndrome Acute toxic metabolic encephalopathy secondary to hypercarbic respiratory failure Alcohol dependence Seizures (History of EtOH induced seizure withdrawal) Chronic benzodiazepine use Bilateral thalamic CVA On Roxanol. Ativan 0.5 mg PRN for sz MRI 03/21 - findings consistent with Osmotic demyelination syndrome. ODS most likely from rapid correction of Na, with underlying alcoholism. ( Patient was profoundly hypotensive in shock requiring multiple pressors at that time) MRI brain 03/28 revealed subacute bilateral thalamic lacunar infarcts, ODS. CT head 03/05 revealed no acute intracranial findings Continue thiamine 100 mg daily ff by neurology/Dr. Mazariegos. EEG previously with persistent. continue Keppra 1000mg BID Acute hypoxemic hypercapnic respiratory failure Status post intubation and extubation. Status post trach on 04/16- 28% Pulmonary service ff for trach management. Chronic Systolic heart failure Echocardiogram 03/04 revealed EF 35-40%. Mild MR. Left atrium dilated. JANE 33 mmHg s/p hydrocortisone. Continue midodrine 10 mg 3 times Monitor HR and BP keep MAP>65mmHg EtOH cirrhosis Hyperammonemia Hiatal hernia Sigmoid diverticulosis Hypoalbuminemia Tube feeds via PEG tube-(Jevity 1.5 with goal rate 60ml/hr). Tube feeds held on 05/06 due to increasing abd distension, tube feeds being resumed on 05/09. KUB revealed dilated bowel loops. GI consult requested on 05/06. Lactulose increased with good response copious bowel movements and decrease in abdominal distention. Tube feeds being resumed on 05/07. Repeat KUB ordered on 05/08. CT abdomen pelvis 05/08 with oral/ IV contrast revealed cirrhotic liver, spleen or megaly, free fluid in abdomen and ileus pattern. s/p PEG tube placement 04/15 CT abdomen/pelvis 04/16: Cirrhosis of liver, splenomegaly, anasarca, ascites(mild ) On Xifaxan 550 twice a day/lactulose 30 twice a day. US Liver 04/15: Abnormal appearance of the pancreas with a nonspecific hypoechoic area involving the posterior part of the pancreas along the head and body region. Fatty infiltration throughout the liver. There is thickening of the gallbladder wall at 6 mm. Suggestive of chronic gallbladder disease. Small amount of free fluid adjacent to the liver and spleen in the upper abdomen. Right-sided pleural effusion. 03/20 Ultrasound liver-hepatosplenomegaly. Sludge in gallbladder Prevacid Leukocytosis Macrocytic anemia - now normocytic Monitor CBC. No indications for transfusion of blood B12 1452, Folate 15.2. TSH 0.8. Aspiration pneumonia, PSAE in sputum Escherichia coli UTI 03/11 - completed therapy Acinetobacter pneumonia Pertinent cultures 04/29 - MDR Acinetobacter 04/26 - urine -C. albicans 04/15 Sputum cx: PSAE 04/15 urine cx: Klebsiella 04/15 BC: NGTD 04/12 BC: NGTD 04/08 - blood cultures 2 - no growth 04/08 - sputum - no growth 04/05 - urine -C GLABRATA AND C. ALBICANS 03/29 - blood cultures 2 - NGTD 03/25 - sputum --Acinetobacter. 03/25 - urine - NGTD 03/25 - blood cultures 2 -no growth 03/22 - urine - no growth 03/22 - blood cultures 2 - negative 03/20 - blood cultures 2 - no growth 03/11 - urine - Escherichia coli 03/02 - blood cultures 2 - no growth Followed by Dr. Lisa/ID. Changed Zosyn to cefepime 04/17 Levaquin started 04/20/17 by ID. Complete therapy by 04/30/17 Started Diflucan 100 daily 04/26 for C. albicans funguria - to complete 7 days of therapy Off Flagyl po 03/24 Procalcitonin level: 0.40, C-diff PCR negative 04/10 Colistin nebs for MDRO Acinetobacter in sputum 04/29 Hyperglycemia of critical illness History of hypothyroidism SSI with Accu-Cheks every 4 hours to maintain euglycemia Hypokalemia: Replace per ICU protocol History of old left clavicle fracture PT/OT evaluate and treat GI -Prevacid DVT - SCD/heparin subcutaneous Palliative care is following. full code per daughter's request. Tamanna Sandhu, daughter/ HCP: from [facility] [phone] now confirmed transferred to [facility] in [place] facility ) Code status -full code CM working on LTAC placement. Difficult placement due to trach. Transfer to medical floor Problem Qualifiers (1) Altered mental status: Qualified Code: R41.82 - Altered mental status, unspecified altered mental status type ePtty Layne MD May 14, 2017 12:45
[2017-05-15] VITALS (10 sets, daily range): BP systolic 106–118; BP diastolic 56–71; PULSE 88–105; RESP 18–20; TEMP 98.1–99.6; O2SAT 92–99
[2017-05-15] MEDS: MORPHINE SULFATE ORAL SOLN 10 MG/0.5 ML SYRINGE G-TUBE PRN ×3 (04:20→22:18)
[2017-05-15] MEDS: MIDODRINE 5 MG TAB PO SCH ×3 (06:59→22:18)
--- NOTE | 2017-05-15 07:14 | RADRPT ---
EXAM DATE/TIME: 05/15/2017 06:09 [place] COMPARISON: CHEST SINGLE AP, April 29, 2017, 6:19. INDICATIONS : Infiltrate. MEDICAL HISTORY : Cirrhosis. Diverticulosis. Seizures. Hiatal hernia. SURGICAL HISTORY : Tracheostomy. ENCOUNTER: Initial ACUITY: 1 day PAIN SCORE: 0/10 LOCATION: Bilateral chest FINDINGS: Portable AP view of the chest demonstrates a normal-sized cardiac silhouette. Tracheostomy is present . Lungs are underinflated and patient is rotated. There is a left basilar pleural-parenchymal opacity and perihilar interstitial opacities are present bilaterally. Bandlike opacity right midlung zone li qunitin represents atelectasis. No pneumothorax is visualized. CONCLUSION: 1. Left basilar pleural-parenchymal opacity likely representing pleural effusion with associated volu me loss and/or consolidation. 2. Mild increased perihilar interstitial opacities bilaterally suspicious for pulmonary edema. Casper Craig MD on May 15, 2017 at 7:12 Board Certified Radiologist. This report was verified electronically.
[2017-05-15] MEDS: LANSOPRAZOLE SOLUTAB 30 MG TAB NG SCH (07:46)
[2017-05-15] MEDS: RIFAXIMIN 550 MG TAB PO SCH ×2 (07:46→22:20)
[2017-05-15] MEDS: THIAMINE HCL 100 MG TAB PO SCH (07:47)
[2017-05-15] MEDS: LACTOBACILLUS ACIDOPHILUS TAB PO SCH ×3 (07:47→18:04)
[2017-05-15] MEDS: MUPIROCIN 2% OINT 1 APPLIC/GM SYR EACH NARE SCH ×2 (07:47→22:19)
[2017-05-15] MEDS: HEPARIN SODIUM - SQ 10,000 UNITS/ML VIAL SQ SCH ×2 (07:47→22:19)
[2017-05-15] MEDS: SODIUM CHLORIDE 0.9% FLUSH 10 ML FLUSH IV FLUSH SCH ×2 (07:47→21:00)
[2017-05-15] MEDS: CHLORHEXIDINE 0.12% (ORAL KIT) 15 ML CUP MT SCH ×2 (07:47→20:00)
[2017-05-15] MEDS: levETIRAcetam 500 MG/5 ML UDC NG SCH ×2 (07:47→22:18)
[2017-05-15] MEDS: ARTIFICIAL TEARS OPTH SOLN 15 ML BTL EACH EYE SCH ×3 (07:48→18:04)
[2017-05-15] MEDS: SODIUM CHLORIDE 0.9% FLUSH 10 ML FLUSH IVF SCH (07:48)
[2017-05-15] MEDS: NYSTATIN 100,000 U/GM PWD 15 GM BTL TOPICAL SCH ×2 (07:51→21:00)
[2017-05-15] MEDS: SODIUM HYPOCHLORITE 0.125% 500 ML BTL TOPICAL SCH (07:51)
[2017-05-15] MEDS: INSULIN NovoLIN REGULAR SUPPLEMENTAL SCALE SQ SCH (08:54)
[2017-05-15] MEDS: RESP: COLISTIN 150 MG VIAL NEB SCH (09:11)
[2017-05-15 10:12] LABS: POTASSIUM 3.8 MEQ/L (3.5-5.1)
--- NOTE | 2017-05-15 10:29 | HHI.PR ---
Subjective Remarks Patient expresses no pain. We discussed the circumstances that brought him here. His orientation and alertness is better than I expected given his history. Motor functions to try to speak or intact and he is able to move both upper extremities. He is able to write sentences. He is able to communicate. Objective Vital Signs Date Time Temp Pulse Resp B/P Pulse Ox O2 Delivery O2 Flow Rate FiO2 05/15/17 09:11 93 T-piece 21 05/15/17 08:00 99.1 105 20 115/58 95 05/15/17 04:00 T-Piece 05/15/17 04:00 98.9 104 20 106/56 93 05/15/17 00:00 98.9 104 20 118/65 92 05/15/17 00:00 T-Piece 05/14/17 20:25 99 05/14/17 20:00 T-Piece 05/14/17 20:00 99.2 104 20 114/67 95 05/14/17 19:44 93 T-piece 6.00 21 05/14/17 16:00 98.3 104 18 113/69 93 05/14/17 12:18 Room Air 6.00 21 T-Piece 05/14/17 12:00 98.3 99 18 111/64 95 I/O 05/14/17 05/14/17 05/14/17 05/15/17 05/15/17 05/15/17 07:00 15:00 23:00 07:00 15:00 23:00 Intake Total 1232 ml 0 ml 602 ml 0 ml Output Total 575 ml 450 ml 300 ml 150 ml Balance 657 ml -450 ml 302 ml -150 ml Intake Oral 0 ml 0 ml IV Total 752 ml Tube Feeding 480 ml 522 ml Tube Irrigant 80 ml Output Urine Total 575 ml 450 ml 300 ml 150 ml # Bowel Movements 1 2 1 0 Result Diagram: 05/13/17 0601 05/13/17600 Imaging Last Impressions Chest X-Ray 05/15/17599 Signed Impressions: Service Date/Time: Monday, May 15, 2017 06:09 - CONCLUSION: 1. Left basilar pleural-parenchymal opacity likely representing pleural effusion with associated volume loss and/or consolidation. 2. Mild increased perihilar interstitial opacities bilaterally suspicious for pulmonary edema. Casper Craig MD Abdomen/Pelvis CT 05/08/17 Signed Impressions: Service Date/Time: Monday, May 08, 2017 23:10 - CONCLUSION: Significant fluid throughout the abdomen and the pelvis with what appears to be a cirrhotic appearing liver and splenomegaly. There is significant small bowel wall thickening throughout the lower abdomen and the upper pelvis without evidence of obstruction Milo Muhammad MD Abdomen X-Ray 05/08/17 Signed Impressions: Service Date/Time: Monday, May 08, 2017 15:30 - CONCLUSION: 1. There is diffuse, mild gaseous distention of the small bowel. No findings to indicate obstruction. Mihir Harry MD Liver Ultrasound 04/15/17 Signed Impressions: Service Date/Time: Saturday, April 15, 2017 09:24 - CONCLUSION: 1. Abnormal appearance of the pancreas with a nonspecific hypoechoic area involving the posterior part of the pancreas along the head and body region. Recommend CT scan of the abdomen with oral and IV contrast further evaluation. 2. Fatty infiltration throughout the liver. 3. There is thickening of the gallbladder wall at 6 mm. This is suggestive of chronic gallbladder disease. 4. Small amount of free fluid adjacent to the liver and spleen in the upper abdomen.. 5. Right-sided pleural effusion. Víctor Rosas MD Head CT 04/12/17 0000 Signed Impressions: Service Date/Time: Wednesday, April 12, 2017 21:30 - CONCLUSION: Pontine encephalomalacia. Left mastoiditis. Casper Alva MD Head Magnetic Resonance Angiography 03/28/17 0000 Signed Impressions: Service Date/Time: March 17:22 - CONCLUSION: Unremarkable examination. Bety Castillo MD Brain MRI 03/28/17 0000 Signed Impressions: Service Date/Time: March 17:22 - CONCLUSION: 1. 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 Small subacute ischemic bilateral thalamic infarcts. 2. There has been no significant change when compared to the prior exam. Yinka Harman MD Lower Extremity Ultrasound 03/25/17 0000 Signed Impressions: Service Date/Time: Saturday, March 25, 2017 22:17 - CONCLUSION: No evidence of DVT. Víctor Rosas MD CT Angiography 03/21/17 0000 Signed Impressions: Service Date/Time: March 00:33 - CONCLUSION: No evidence of pulmonary embolism is identified. Mild atelectasis left lung base. Fluid or phlegm within the trachea. Milo Muhammad MD Abdomen Ultrasound 03/20/17 0000 Signed Impressions: Service Date/Time: Monday, March 20, 2017 11:38 - CONCLUSION: 1. Hepatosplenomegaly without focal lesion. 2. Probable sludge within the lumen of the gallbladder. No intrahepatic duct. Cheo Martínez MD Shoulder X-Ray 03/02/17 1404 Signed Impressions: Service Date/Time: Thursday, March 02, 2017 15:18 - CONCLUSION: No evidence of recent bony injury. Deformity of the lateral left clavicle suggests old healed trauma. Cheo Martínez MD Maxillofacial CT 03/02/17 1342 Signed Impressions: Service Date/Time: Thursday, March 02, 2017 14:52 - CONCLUSION: Negative CT of the facial bones. Cheo Martínez MD Chest CT 03/02/17 1342 Signed Impressions: Service Date/Time: Thursday, March 02, 2017 15:04 - CONCLUSION: 1. Abnormal appearance of the lateral left clavicle suggesting a combination of acute and chronic bony injury. Fracture lucencies without bridging callus is seen the region of the coracoid process. 2. The lungs are clear. No evidence of pneumothorax. 3. Moderate size hiatus hernia. Cheo Martínez MD Cervical Spine CT 03/02/17 1342 Signed Impressions: Service Date/Time: Thursday, March 02, 2017 14:52 - CONCLUSION: Negative CT cervical spine. Cheo Martínez MD Objective Remarks GENERAL: NAD, A&Ox3, communication compromised by tracheostomy HEAD: Normocephalic. NECK: Supple, trachea midline. No lymphadenopathy. Tracheostomy present. EYES: No scleral icterus. No injection or drainage. CARDIOVASCULAR: Regular rate and rhythm without murmurs, gallops, or rubs. RESPIRATORY: Breath sounds equal bilaterally. No accessory muscle use. GASTROINTESTINAL: Abdomen soft, non-tender, nondistended. MUSCULOSKELETAL: No cyanosis, or edema. SKIN: Warm and dry. NEURO: No focal neurological deficitis. Diffuse debility and weakness. Medications and IVs Administered Medications Medications (Trade) Dose Ordered Sig/Mae Route PRN Reason Start Time Stop Time Status Last Admin Dose Admin Dextrose (D50w (Vial) Inj) 25 ml UNSCH PRN IV PUSH HYPOGLYCEMIA-SEE COMMENTS 03/02/17 16:30 03/15/17 15:58 Rifaximin (Xifaxan) 550 mg BID PO 03/20/17 09:00 05/15/17 07:46 Sodium Chloride (NS Flush) 2 ml BID IV FLUSH 03/20/17 09:00 05/15/17 07:47 Artificial Tears (Tears Naturale Opth Soln) 1 drop TID EACH EYE 03/20/17 09:00 05/15/17 07:48 Ondansetron HCl (Zofran Inj) 4 mg Q6H PRN IV NAUSEA OR VOMITING 03/20/17 07:30 05/04/17 04:29 Mupirocin (Bactroban Nasal 2% Oint) Taper BID EACH NARE 03/20/17 09:00 03/16/18 08:59 05/15/17 07:47 Lactobacillus Acidophilus (Lactinex) 1 tab TID PO 03/24/17 18:00 05/15/17 07:47 Sodium Chloride (NS Flush) DAILY IVF 03/25/17 10:15 05/06/17 09:00 Chlorhexidine Gluconate (Peridex 0.12% Liq) 15 ml BID@08,20 MT 03/25/17 20:00 05/15/17 07:47 Midodrine (Proamatine) 10 mg Q8HR PO 04/01/17 22:00 05/15/17 06:59 Acetaminophen (Tylenol) 500 mg Q6H PRN PO FEVER 04/01/17 23:15 05/12/17 09:54 Docusate Sodium (Colace Liq) 100 mg Q12HR PO 04/03/17 21:00 Hold 04/13/17 11:42 Nystatin (Mycostatin Powder) 1 applic Q12HR TOPICAL 04/03/17 21:00 05/15/17 07:51 Thiamine HCl (Vitamin B1) 100 mg DAILY PO 04/05/17 09:00 05/15/17 07:47 Lorazepam (Ativan Inj) 1 mg Q2H PRN IV PUSH SEIZURES 04/13/17 11:00 04/19/17 17:41 Lansoprazole (Prevacid Odt) 30 mg DAILY NG 04/27/17 09:00 05/15/17 07:46 Levetriacetam (Keppra Liq) 1,000 mg Q12HR NG 04/27/17 21:00 05/15/17 07:47 Heparin Sodium (Porcine) (Heparin Inj) 5,000 units Q12HR SQ 04/27/17 21:00 05/15/17 07:47 Sodium Hypochlorite (Dakin'S 0.125% Soln) 100 ml DAILY TOPICAL 05/02/17 12:00 05/15/17 07:51 Morphine Sulfate (Roxanol Liq) 5 mg Q4H PRN G-TUBE PAIN SCALE 1 TO 10 05/12/17 14:45 05/15/17 04:20 A/P Problem List: (1) Seizure ICD Code: R56.9 (2) 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 Now extubated, with tracheostomy present. Osmotic demyelination syndrome (ODS) Acute toxic metabolic encephalopathy secondary to hypercarbic respiratory failure Seizures (History of EtOH induced seizure withdrawal) Chronic benzodiazepine use Bilateral thalamic CVA ODS secondary to severe hyponatremia (99) with need for fluids and pressors for shock, at arrival to ER. Etiology for shock related to alcoholism No recent seizure activity Prior seizures had been alcohol related New brain damage increases risk for chronic seizure disorder Continue Keppra 1000mg BID Continue Ativan PRN for seizures Thiamine Neurology following Roxanol for Pain Alcohol dependence No further dependence Off Alcohol Acute hypoxemic hypercapnic respiratory failure Tracheostomy placed 04/16/17 Pulmonology following Chronic Systolic heart failure Hypotension EF of 35-40% on 03/04/17 Follow clinically BP stable on Midodrine TID Follow BP EtOH cirrhosis Hx Hyperammonemia Lactulose PRN Ammonia level in AM Hiatal hernia Sigmoid diverticulosis Follow clinically Dysphagia Hypoalbuminemia Chronic Disease and Compromised PO intake from chronic disease Follow albumin levels Speech therapy Continue tube feeds Anemia Stable recently Follow CBC Hx Aspiration pneumonia, PSAE in sputum Acinetobacter pneumonia (See infection history below) Leukocytosis resolved ID Following Colistin Nebs Probiotics History of hypothyroidism Monitor TSH (tomorrow AM) Hyperglycemia Resolved Wean blood sugar checks to once daily Hypokalemia: Follow potassium Monitor levels Replace as needed Global Debility and Decompensation OT, PT, ST GI Prevacid PRN Laxative DVT Prophylaxis Heparin SCDs Infection History: Pertinent cultures 04/29 - MDR Acinetobacter 04/26 - urine -C. albicans 04/15 Sputum cx: PSAE 04/15 urine cx: Klebsiella 04/15 BC: NGTD 04/12 BC: NGTD 04/08 - blood cultures 2 - no growth 04/08 - sputum - no growth 04/05 - urine -C GLABRATA AND C. ALBICANS 03/29 - blood cultures 2 - NGTD 03/25 - sputum --Acinetobacter. 03/25 - urine - NGTD 03/25 - blood cultures 2 -no growth 03/22 - urine - no growth 03/22 - blood cultures 2 - negative 03/20 - blood cultures 2 - no growth 03/11 - urine - Escherichia coli 03/02 - blood cultures 2 - no growth Cognitive Status: Communication is difficult, but patient is able to communicate and is competent for making decisions Contacts: Tamanna Sandhu, daughter/ HCP: from [facility] [phone] now confirmed transferred to [facility] in [place] facility ([phone]) Code status full code Discharge Planning: CM working on LTAC placement. Difficult placement due to trach. Mihir Harman MD May 15, 2017 10:29
[2017-05-15] MEDS: RESP: ALBUTEROL 2.5 MG/3 ML NEB (PRN) INH (20:30)
[2017-05-16] VITALS: BP 135/67; PULSE 93; RESP 18; TEMP 98.3; O2SAT 93
[2017-05-16 04:00] VITALS: BP 127/72; PULSE 96; RESP 20; TEMP 97.2; O2SAT 96
[2017-05-16] MEDS: MIDODRINE 5 MG TAB PO SCH ×3 (06:06→21:48)
[2017-05-16] MEDS: MORPHINE SULFATE ORAL SOLN 10 MG/0.5 ML SYRINGE G-TUBE PRN ×2 (06:06→17:00)
[2017-05-16 08:00] VITALS: BP 118/62; PULSE 104; RESP 20; TEMP 100.8; O2SAT 95
[2017-05-16] MEDS: CHLORHEXIDINE 0.12% (ORAL KIT) 15 ML CUP MT SCH ×2 (08:00→20:00)
[2017-05-16 08:29] LABS: HEMATOCRIT 25.8 % (39.0-51.0); MEAN CELL VOLUME 97.5 FL (80.0-100.0); MEAN CORPUSCULAR HEMOGLOBIN 32.5 PG (27.0-34.0); MEAN CORPUSCULAR HGB CONC 33.4 % (32.0-36.0); PLATELET COUNT 145 TH/MM3 (150-450); RED BLOOD COUNT 2.65 MIL/MM3 (4.50-5.90); RED CELL DISTRIBUTION WIDTH 14.5 % (11.6-17.2); REVIEW FLAG FINAL; WHITE BLOOD COUNT 11.4 TH/MM3 (4.0-11.0)
[2017-05-16 09:00] LABS: BICARBONATE 24.6 MEQ/L (21.0-32.0)
[2017-05-16] MEDS: SODIUM HYPOCHLORITE 0.125% 500 ML BTL TOPICAL SCH (09:00)
[2017-05-16] MEDS: LACTOBACILLUS ACIDOPHILUS TAB PO SCH ×3 (09:00→17:58)
[2017-05-16] MEDS: HEPARIN SODIUM - SQ 10,000 UNITS/ML VIAL SQ SCH ×2 (09:00→21:48)
[2017-05-16] MEDS: SODIUM CHLORIDE 0.9% FLUSH 10 ML FLUSH IV FLUSH SCH ×2 (09:00→21:00)
[2017-05-16] MEDS: SODIUM CHLORIDE 0.9% FLUSH 10 ML FLUSH IVF SCH (09:00)
[2017-05-16] MEDS: levETIRAcetam 500 MG/5 ML UDC NG SCH ×2 (09:00→21:47)
[2017-05-16] MEDS: THIAMINE HCL 100 MG TAB PO SCH (09:00)
[2017-05-16] MEDS: MUPIROCIN 2% OINT 1 APPLIC/GM SYR EACH NARE SCH ×2 (09:00→21:00)
[2017-05-16] MEDS: ARTIFICIAL TEARS OPTH SOLN 15 ML BTL EACH EYE SCH ×3 (09:00→17:58)
[2017-05-16] MEDS: NYSTATIN 100,000 U/GM PWD 15 GM BTL TOPICAL SCH ×2 (09:00→21:00)
[2017-05-16] MEDS: LANSOPRAZOLE SOLUTAB 30 MG TAB NG SCH (09:00)
[2017-05-16] MEDS: RIFAXIMIN 550 MG TAB PO SCH ×2 (09:00→21:48)
[2017-05-16 12:00] VITALS: BP 119/63; PULSE 98; RESP 19; TEMP 98.5; O2SAT 92
--- NOTE | 2017-05-16 13:05 | HHI.PR ---
Subjective Remarks Fever reported this morning. Leukocytosis is increased. Patient has no complaints when seen. He is on rifaximin twice a day. Objective Vital Signs Date Time Temp Pulse Resp B/P Pulse Ox O2 Delivery O2 Flow Rate FiO2 05/16/17 12:00 98.5 98 19 119/63 92 05/16/17 08:00 100.8 104 20 118/62 95 05/16/17 04:00 T-Piece 21 05/16/17 04:00 97.2 96 20 127/72 96 05/16/17 00:00 98.3 93 18 135/67 93 05/16/17 00:00 T-Piece 21 05/15/17 20:30 98 T-piece 6.00 21 05/15/17 20:28 91 05/15/17 20:00 T-Piece 21 05/15/17 20:00 98.1 95 20 112/65 99 05/15/17 16:00 99.6 95 18 115/67 96 I/O 05/15/17 05/15/17 05/15/17 05/16/17 05/16/17 05/16/17 07:00 15:00 23:00 07:00 15:00 23:00 Intake Total 0 ml 0 ml 588 ml 415 ml Output Total 150 ml 400 ml 1100 ml Balance -150 ml -400 ml 588 ml -685 ml Intake Oral 0 ml 0 ml Tube Feeding 488 ml 363 ml Tube Irrigant 100 ml 52 ml Output Urine Total 150 ml 400 ml 1100 ml # Bowel Movements 0 0 Result Diagram: 05/16/17 0803 05/16/17 0803 Objective Remarks GENERAL: NAD, A&Ox3, communication compromised by tracheostomy HEAD: Normocephalic. NECK: Supple, trachea midline. No lymphadenopathy. Tracheostomy present. EYES: No scleral icterus. No injection or drainage. CARDIOVASCULAR: Regular rate and rhythm without murmurs, gallops, or rubs. RESPIRATORY: Breath sounds equal bilaterally. No accessory muscle use. GASTROINTESTINAL: Abdomen soft, non-tender, nondistended. MUSCULOSKELETAL: No cyanosis, or edema. SKIN: Warm and dry. NEURO: No focal neurological deficitis. Diffuse debility and weakness. 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 Now extubated, with tracheostomy present. Urinalysis and chest x- ray ordered secondary to fever and increased leukocytosis. Continue present antibiotics for now an upgrade based on findings if needed. Osmotic demyelination syndrome (ODS) Acute toxic metabolic encephalopathy secondary to hypercarbic respiratory failure Seizures (History of EtOH induced seizure withdrawal) Chronic benzodiazepine use Bilateral thalamic CVA ODS secondary to severe hyponatremia (99) with need for fluids and pressors for shock, at arrival to ER. Etiology for shock related to alcoholism No recent seizure activity Prior seizures had been alcohol related New brain damage increases risk for chronic seizure disorder Continue Keppra 1000mg BID Continue Ativan PRN for seizures Thiamine Neurology following Roxanol for Pain Alcohol dependence No further dependence Off Alcohol Acute hypoxemic hypercapnic respiratory failure Tracheostomy placed 04/16/17 Pulmonology following Chronic Systolic heart failure Hypotension EF of 35-40% on 03/04/17 Follow clinically BP stable on Midodrine TID Follow BP EtOH cirrhosis Hx Hyperammonemia Lactulose PRN Ammonia level in AM Hiatal hernia Sigmoid diverticulosis Follow clinically Dysphagia Hypoalbuminemia Chronic Disease and Compromised PO intake from chronic disease Follow albumin levels Speech therapy Continue tube feeds Anemia Stable recently Follow CBC Hx Aspiration pneumonia, PSAE in sputum Acinetobacter pneumonia (See infection history below) Leukocytosis resolved ID Following Colistin Nebs Probiotics History of hypothyroidism Monitor TSH (tomorrow AM) Hyperglycemia Resolved Wean blood sugar checks to once daily Hypokalemia: Follow potassium Monitor levels Replace as needed Global Debility and Decompensation OT, PT, ST GI Prevacid PRN Laxative DVT Prophylaxis Heparin SCDs Infection History: Pertinent cultures 04/29 - MDR Acinetobacter 04/26 - urine -C. albicans 04/15 Sputum cx: PSAE 04/15 urine cx: Klebsiella 04/15 BC: NGTD 04/12 BC: NGTD 04/08 - blood cultures 2 - no growth 04/08 - sputum - no growth 04/05 - urine -C GLABRATA AND C. ALBICANS 03/29 - blood cultures 2 - NGTD 03/25 - sputum --Acinetobacter. 03/25 - urine - NGTD 03/25 - blood cultures 2 -no growth 03/22 - urine - no growth 03/22 - blood cultures 2 - negative 03/20 - blood cultures 2 - no growth 03/11 - urine - Escherichia coli 03/02 - blood cultures 2 - no growth Cognitive Status: Communication is difficult, but patient is able to communicate and is competent for making decisions Contacts: Tamanna Sandhu, daughter/ HCP: from [facility] [phone] now confirmed transferred to [facility] in [place] facility ([phone]) Code status full code Discharge Planning: CM working on LTAC placement. Difficult placement due to trach. Mihir Harman MD May 16, 2017 13:05
--- NOTE | 2017-05-16 13:47 | RADRPT ---
EXAM DATE/TIME: 05/16/2017 12:56 [place] COMPARISON: CHEST SINGLE AP, May 15, 2017, 6:09. INDICATIONS : Fever. MEDICAL HISTORY : Cirrhosis. Diverticulosis. Hiatal hernia. Seizures. SURGICAL HISTORY : Tracheostomy. ENCOUNTER: Subsequent ACUITY: 2 days PAIN SCORE: 0/10 LOCATION: Bilateral chest FINDINGS: Improved lung aeration is noted compared to the prior day. There is persistent left basilar consolida tion. Tracheostomy tube is in stable position. CONCLUSION: Improving lung aeration with decreasing air space disease. Persistent left basilar consolidation. Carlos Galindo MD on May 16, 2017 at 13:40 Board Certified Radiologist. This report was verified electronically.
[2017-05-16 16:00] VITALS: BP 108/56; PULSE 101; RESP 20; TEMP 98.4; O2SAT 94
[2017-05-16 19:57] LABS: BACTERIA, URINE MANY /hpf; BLOOD, URINE SMALL (NEG); CALCIUM OXALATE CRYSTALS,URINE OCC /hpf; GLUCOSE,URINE NEG (NEG); KETONE, URINE NEG (NEG); URINE COLOR YELLOW (YELLW/STRAW)
[2017-05-16 19:59] LABS: COMMENT (UR) CATH-CULTURE IND; CULTURE IF INDICATED CATH CULTURE IND; NITRITE,URINE POS (NEG)
[2017-05-16 20:00] VITALS: BP 120/59; PULSE 101; PULSE 103; RESP 18; TEMP 99.3; O2SAT 95
[2017-05-16] MEDS: cefTRIAXone INJ 1,000 MG in SODIUM CHLORIDE 0.9% INJ 100 ML IV SCH (21:48)
[2017-05-17] VITALS (7 sets, daily range): BP systolic 104–124; BP diastolic 61–71; PULSE 93–106; RESP 18–22; TEMP 98.1–98.9; O2SAT 92–96
[2017-05-17] MEDS: MIDODRINE 5 MG TAB PO SCH ×2 (05:46→20:06)
[2017-05-17] MEDS: CHLORHEXIDINE 0.12% (ORAL KIT) 15 ML CUP MT SCH ×2 (08:00→20:00)
[2017-05-17] MEDS: THIAMINE HCL 100 MG TAB PO SCH (09:00)
[2017-05-17] MEDS: NYSTATIN 100,000 U/GM PWD 15 GM BTL TOPICAL SCH ×2 (09:00→20:05)
[2017-05-17] MEDS: HEPARIN SODIUM - SQ 10,000 UNITS/ML VIAL SQ SCH ×2 (09:00→20:05)
[2017-05-17] MEDS: LANSOPRAZOLE SOLUTAB 30 MG TAB NG SCH (09:00)
[2017-05-17] MEDS: RIFAXIMIN 550 MG TAB PO SCH ×2 (09:00→20:05)
[2017-05-17] MEDS: SODIUM CHLORIDE 0.9% FLUSH 10 ML FLUSH IVF SCH (09:00)
[2017-05-17] MEDS: SODIUM CHLORIDE 0.9% FLUSH 10 ML FLUSH IV FLUSH SCH ×2 (09:00→20:05)
[2017-05-17] MEDS: MUPIROCIN 2% OINT 1 APPLIC/GM SYR EACH NARE SCH ×2 (09:00→20:05)
[2017-05-17] MEDS: SODIUM HYPOCHLORITE 0.125% 500 ML BTL TOPICAL SCH (09:00)
[2017-05-17] MEDS: levETIRAcetam 500 MG/5 ML UDC NG SCH ×2 (09:00→20:05)
[2017-05-17] MEDS: ARTIFICIAL TEARS OPTH SOLN 15 ML BTL EACH EYE SCH (09:00)
[2017-05-17] MEDS: LACTOBACILLUS ACIDOPHILUS TAB PO SCH (09:00)
--- NOTE | 2017-05-17 14:35 | HHI.PR ---
Subjective Remarks Fevers have resolved. Leukocytosis resolved. Patient feels he may be having cardiac causes. Review of the telemetry shows intermittent tachycardia. He was going greatly distressed and thought that he might . He is advised that she is not going to from intermittent tachycardia. Medications are reviewed and he is on midodrine long-term now and this may be contributory. Objective Vital Signs Date Time Temp Pulse Resp B/P Pulse Ox O2 Delivery O2 Flow Rate FiO2 05/17/17 12:00 98.3 93 20 113/65 95 05/17/17 08:00 98.9 94 20 120/68 96 05/17/17 04:00 98.7 103 18 124/63 96 05/17/17 04:00 96 T-piece 21 05/17/17 00:00 98.6 106 18 115/71 92 05/16/17 20:00 T-Piece 6.00 05/16/17 20:00 99.3 103 18 120/59 95 05/16/17 20:00 101 05/16/17 16:00 98.4 101 20 108/56 94 I/O 05/16/17 05/16/17 05/16/17 05/17/17 05/17/17 05/17/17 07:00 15:00 23:00 07:00 15:00 23:00 Intake Total 415 ml 670 ml 193 ml 301 ml 0 ml Output Total 1100 ml 600 ml 650 ml 400 ml Balance -685 ml 70 ml 193 ml -349 ml -400 ml Intake Oral 60 ml 0 ml 0 ml Tube Feeding 363 ml 360 ml 193 ml 301 ml Tube Irrigant 52 ml Other 250 ml Output Urine Total 1100 ml 600 ml 650 ml 400 ml # Bowel Movements 1 1 2 2 Result Diagram: 05/16/1780205/16/17802 Objective Remarks GENERAL: NAD, A&Ox3, communication compromised by tracheostomy HEAD: Normocephalic. NECK: Supple, trachea midline. No lymphadenopathy. Tracheostomy present. EYES: No scleral icterus. No injection or drainage. CARDIOVASCULAR: Regular rate and rhythm without murmurs, gallops, or rubs. RESPIRATORY: Breath sounds equal bilaterally. No accessory muscle use. GASTROINTESTINAL: Abdomen soft, non-tender, nondistended. MUSCULOSKELETAL: No cyanosis, or edema. SKIN: Warm and dry. NEURO: No focal neurological deficitis. Diffuse debility and weakness. 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 Now extubated, with tracheostomy present. Recurrent tachycardia. Nitrogen weaned from 10 to 5 mg. Monitor telemetry. Osmotic demyelination syndrome (ODS) Acute toxic metabolic encephalopathy secondary to hypercarbic respiratory failure Seizures (History of EtOH induced seizure withdrawal) Chronic benzodiazepine use Bilateral thalamic CVA ODS secondary to severe hyponatremia (99) with need for fluids and pressors for shock, at arrival to ER. Etiology for shock related to alcoholism No recent seizure activity Prior seizures had been alcohol related New brain damage increases risk for chronic seizure disorder Continue Keppra 1000mg BID Continue Ativan PRN for seizures Thiamine Neurology following Roxanol for Pain Alcohol dependence No further dependence Off Alcohol Acute hypoxemic hypercapnic respiratory failure Tracheostomy placed 04/16/17 Pulmonology following Chronic Systolic heart failure Hypotension EF of 35-40% on 03/04/17 Follow clinically BP stable on Midodrine TID Follow BP EtOH cirrhosis Hx Hyperammonemia Lactulose PRN Ammonia level in AM Hiatal hernia Sigmoid diverticulosis Follow clinically Dysphagia Hypoalbuminemia Chronic Disease and Compromised PO intake from chronic disease Follow albumin levels Speech therapy Continue tube feeds Anemia Stable recently Follow CBC Hx Aspiration pneumonia, PSAE in sputum Acinetobacter pneumonia (See infection history below) Leukocytosis resolved ID Following Colistin Nebs Probiotics History of hypothyroidism Monitor TSH (tomorrow AM) Hyperglycemia Resolved Wean blood sugar checks to once daily Hypokalemia: Follow potassium Monitor levels Replace as needed Global Debility and Decompensation OT, PT, ST GI Prevacid PRN Laxative DVT Prophylaxis Heparin SCDs Infection History: Pertinent cultures 04/29 - MDR Acinetobacter 04/26 - urine -C. albicans 04/15 Sputum cx: PSAE 04/15 urine cx: Klebsiella 04/15 BC: NGTD 04/12 BC: NGTD 04/08 - blood cultures 2 - no growth 04/08 - sputum - no growth 04/05 - urine -C GLABRATA AND C. ALBICANS 03/29 - blood cultures 2 - NGTD 03/25 - sputum --Acinetobacter. 03/25 - urine - NGTD 4/24 - blood cultures 2 -no growth 03/22 - urine - no growth 03/22 - blood cultures 2 - negative 03/20 - blood cultures 2 - no growth 03/11 - urine - Escherichia coli 03/02 - blood cultures 2 - no growth Cognitive Status: Communication is difficult, but patient is able to communicate and is competent for making decisions Contacts: Tamanna Sandhu, daughter/ HCP: from [facility] [phone] now confirmed transferred to [facility] in [place] facility ([phone]) Code status full code Discharge Planning: CM working on LTAC placement. Difficult placement due to trach. Mihir Harman MD May 17, 2017 2:35 pm
[2017-05-17] MEDS: cefTRIAXone INJ 1,000 MG in SODIUM CHLORIDE 0.9% INJ 100 ML IV SCH (20:05)
[2017-05-18] VITALS (9 sets, daily range): BP systolic 103–118; BP diastolic 59–67; PULSE 93–99; RESP 18–22; TEMP 97.8–99.4; O2SAT 92–99
[2017-05-18] MEDS: MIDODRINE 5 MG TAB PO SCH (06:05)
[2017-05-18] MEDS: SODIUM CHLORIDE 0.9% FLUSH 10 ML FLUSH IVF SCH (09:00)
[2017-05-18] MEDS: levETIRAcetam 500 MG/5 ML UDC NG SCH ×2 (10:13→22:20)
[2017-05-18] MEDS: THIAMINE HCL 100 MG TAB PO SCH (10:14)
[2017-05-18] MEDS: RIFAXIMIN 550 MG TAB PO SCH ×2 (10:14→22:20)
[2017-05-18] MEDS: LACTOBACILLUS ACIDOPHILUS TAB PO SCH ×5 (10:14→18:23)
[2017-05-18] MEDS: MUPIROCIN 2% OINT 1 APPLIC/GM SYR EACH NARE SCH ×2 (10:14→22:20)
[2017-05-18] MEDS: MORPHINE SULFATE ORAL SOLN 10 MG/0.5 ML SYRINGE G-TUBE PRN ×3 (10:15→22:21)
[2017-05-18] MEDS: HEPARIN SODIUM - SQ 10,000 UNITS/ML VIAL SQ SCH ×2 (10:16→22:21)
[2017-05-18] MEDS: SODIUM HYPOCHLORITE 0.125% 500 ML BTL TOPICAL SCH (10:17)
[2017-05-18] MEDS: LANSOPRAZOLE SOLUTAB 30 MG TAB NG SCH (10:19)
[2017-05-18] MEDS: NYSTATIN 100,000 U/GM PWD 15 GM BTL TOPICAL SCH ×2 (10:19→21:00)
[2017-05-18] MEDS: SODIUM CHLORIDE 0.9% FLUSH 10 ML FLUSH IV FLUSH SCH ×2 (10:20→22:19)
[2017-05-18] MEDS: CHLORHEXIDINE 0.12% (ORAL KIT) 15 ML CUP MT SCH ×2 (10:55→20:00)
[2017-05-18] MEDS: ARTIFICIAL TEARS OPTH SOLN 15 ML BTL EACH EYE SCH ×4 (10:55→18:00)
--- NOTE | 2017-05-18 13:28 | HHI.PR ---
Subjective Remarks No further tachycardia. Midodrine decreased to 5 mg yesterday and has been stopped this morning. Patient's primary complaint today is lower extremity edema. Additionally, since last seen patient has had a passy-cheri valve placed and is able to communicate and talk. Objective Vital Signs Date Time Temp Pulse Resp B/P Pulse Ox O2 Delivery O2 Flow Rate FiO2 05/18/17 12:00 98.7 97 20 118/66 95 05/18/17 10:05 95 Trach Collar 28 05/18/17 08:00 99.4 99 22 108/65 94 05/18/17 04:00 98.8 99 19 108/67 94 05/18/17 00:00 98.6 95 20 115/67 92 05/17/17 21:08 96 T-piece 21 05/17/17 20:00 99 05/17/17 20:00 98.1 99 05/17/17 20:00 98.1 99 22 104/65 92 05/17/17 20:00 T-Piece 6.00 Humidified 05/17/17 16:00 98.4 98 22 109/61 92 I/O 05/17/17 05/17/17 05/17/17 05/18/17 05/18/17 05/18/17 07:00 15:00 23:00 07:00 15:00 23:00 Intake Total 301 ml 0 ml 100 ml Output Total 650 ml 400 ml 300 ml 650 ml Balance -349 ml -400 ml -300 ml -550 ml Intake Oral 0 ml 0 ml 100 ml Tube Feeding 301 ml Output Urine Total 650 ml 400 ml 300 ml 650 ml # Bowel Movements 2 2 1 4 Result Diagram: 05/16/1780205/16/17 0803 Objective Remarks GENERAL: NAD, A&Ox3 HEAD: Normocephalic. NECK: Supple, trachea midline. No lymphadenopathy. Tracheostomy present. EYES: No scleral icterus. No injection or drainage. CARDIOVASCULAR: Regular rate and rhythm without murmurs, gallops, or rubs. RESPIRATORY: Breath sounds equal bilaterally. No accessory muscle use. GASTROINTESTINAL: Abdomen soft, non-tender, nondistended. MUSCULOSKELETAL: No cyanosis, or edema. SKIN: Warm and dry. NEURO: No focal neurological deficitis. Diffuse debility and weakness. 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 Now extubated, with tracheostomy present. No further tachycardia. Now weaned off of midodrine. Start lower extremity SCDs. Start Lasix 20 mg IV twice a day to treat lower extremity edema. Follow blood pressures and follow clinically for improvement. CBC and BMP in a.m. Osmotic demyelination syndrome (ODS) Acute toxic metabolic encephalopathy secondary to hypercarbic respiratory failure Seizures (History of EtOH induced seizure withdrawal) Chronic benzodiazepine use Bilateral thalamic CVA ODS secondary to severe hyponatremia (99) with need for fluids and pressors for shock, at arrival to ER. Etiology for shock related to alcoholism No recent seizure activity Prior seizures had been alcohol related New brain damage increases risk for chronic seizure disorder Continue Keppra 1000mg BID Continue Ativan PRN for seizures Thiamine Neurology following Roxanol for Pain Alcohol dependence No further dependence Off Alcohol Acute hypoxemic hypercapnic respiratory failure Tracheostomy placed 04/16/17 Pulmonology following Chronic Systolic heart failure Hypotension EF of 35-40% on 03/04/17 Follow clinically BP stable on Midodrine TID Follow BP EtOH cirrhosis Hx Hyperammonemia Lactulose PRN Ammonia level in AM Hiatal hernia Sigmoid diverticulosis Follow clinically Dysphagia Hypoalbuminemia Chronic Disease and Compromised PO intake from chronic disease Follow albumin levels Speech therapy Continue tube feeds Anemia Stable recently Follow CBC Hx Aspiration pneumonia, PSAE in sputum Acinetobacter pneumonia (See infection history below) Leukocytosis resolved ID Following Colistin Nebs Probiotics History of hypothyroidism Monitor TSH (tomorrow AM) Hyperglycemia Resolved Wean blood sugar checks to once daily Hypokalemia: Follow potassium Monitor levels Replace as needed Global Debility and Decompensation OT, PT, ST GI Prevacid PRN Laxative DVT Prophylaxis Heparin SCDs Infection History: Pertinent cultures 04/29 - MDR Acinetobacter 04/26 - urine -C. albicans 04/15 Sputum cx: PSAE 04/15 urine cx: Klebsiella 04/15 BC: NGTD 04/12 BC: NGTD 04/08 - blood cultures 2 - no growth 04/08 - sputum - no growth 04/05 - urine -C GLABRATA AND C. ALBICANS 03/29 - blood cultures 2 - NGTD 03/25 - sputum --Acinetobacter. 03/25 - urine - NGTD 03/25 - blood cultures 2 -no growth 03/22 - urine - no growth 03/22 - blood cultures 2 - negative 03/20 - blood cultures 2 - no growth 03/11 - urine - Escherichia coli 03/02 - blood cultures 2 - no growth Cognitive Status: Communication is difficult, but patient is able to communicate and is competent for making decisions Contacts: Tamanna Sandhu, daughter/ HCP: from [facility] [phone] now confirmed transferred to [facility] in [place] facility ) Code status full code Discharge Planning: CM working on LTAC placement. Difficult placement due to trach. Mihir Harman MD May 18, 2017 13:28
[2017-05-18] MEDS ORDERED: FUROSEMIDE 20 MG/2 ML VIAL IV PUSH ONE (13:30)
[2017-05-18 13:44] LABS: HEMATOCRIT 25.8 % (39.0-51.0); MEAN CELL VOLUME 96.6 FL (80.0-100.0); MEAN CORPUSCULAR HEMOGLOBIN 32.8 PG (27.0-34.0); MEAN CORPUSCULAR HGB CONC 33.9 % (32.0-36.0); PLATELET COUNT 156 TH/MM3 (150-450); RED BLOOD COUNT 2.67 MIL/MM3 (4.50-5.90); RED CELL DISTRIBUTION WIDTH 13.8 % (11.6-17.2); REVIEW FLAG FINAL; WHITE BLOOD COUNT 10.4 TH/MM3 (4.0-11.0)
[2017-05-18 14:10] LABS: POTASSIUM 3.8 MEQ/L (3.5-5.1)
[2017-05-18] MEDS: FUROSEMIDE 20 MG/2 ML VIAL IV PUSH SCH (18:23)
[2017-05-18] MEDS: cefTRIAXone INJ 1,000 MG in SODIUM CHLORIDE 0.9% INJ 100 ML IV SCH (22:20)
[2017-05-19] VITALS (8 sets, daily range): BP systolic 98–122; BP diastolic 54–70; PULSE 91–108; RESP 18–20; TEMP 98.2–99.9; O2SAT 94–97
[2017-05-19] MEDS: CHLORHEXIDINE 0.12% (ORAL KIT) 15 ML CUP MT SCH ×2 (08:00→20:00)
[2017-05-19 08:41] LABS: HEMATOCRIT 25.4 % (39.0-51.0); MEAN CELL VOLUME 96.8 FL (80.0-100.0); MEAN CORPUSCULAR HEMOGLOBIN 32.5 PG (27.0-34.0); MEAN CORPUSCULAR HGB CONC 33.6 % (32.0-36.0); PLATELET COUNT 145 TH/MM3 (150-450); RED BLOOD COUNT 2.62 MIL/MM3 (4.50-5.90); RED CELL DISTRIBUTION WIDTH 13.9 % (11.6-17.2); REVIEW FLAG FINAL; WHITE BLOOD COUNT 8.9 TH/MM3 (4.0-11.0)
[2017-05-19] MEDS: SODIUM CHLORIDE 0.9% FLUSH 10 ML FLUSH IVF SCH (09:00)
[2017-05-19 09:05] LABS: BICARBONATE 25.9 MEQ/L (21.0-32.0); POTASSIUM 3.7 MEQ/L (3.5-5.1)
[2017-05-19] MEDS: levETIRAcetam 500 MG/5 ML UDC NG SCH ×2 (11:04→21:37)
[2017-05-19] MEDS: LACTOBACILLUS ACIDOPHILUS TAB PO SCH ×3 (11:04→18:48)
[2017-05-19] MEDS: MUPIROCIN 2% OINT 1 APPLIC/GM SYR EACH NARE SCH ×2 (11:04→21:37)
[2017-05-19] MEDS: THIAMINE HCL 100 MG TAB PO SCH (11:04)
[2017-05-19] MEDS: SODIUM CHLORIDE 0.9% FLUSH 10 ML FLUSH IV FLUSH SCH ×2 (11:05→21:37)
[2017-05-19] MEDS: FUROSEMIDE 20 MG/2 ML VIAL IV PUSH SCH ×2 (11:05→18:49)
[2017-05-19] MEDS: ARTIFICIAL TEARS OPTH SOLN 15 ML BTL EACH EYE SCH ×3 (11:06→18:50)
[2017-05-19] MEDS: LANSOPRAZOLE SOLUTAB 30 MG TAB NG SCH (11:07)
[2017-05-19] MEDS: RIFAXIMIN 550 MG TAB PO SCH ×2 (11:07→21:37)
[2017-05-19] MEDS: NYSTATIN 100,000 U/GM PWD 15 GM BTL TOPICAL SCH ×2 (11:08→21:00)
[2017-05-19] MEDS: SODIUM HYPOCHLORITE 0.125% 500 ML BTL TOPICAL SCH (11:08)
[2017-05-19] MEDS: HEPARIN SODIUM - SQ 10,000 UNITS/ML VIAL SQ SCH ×2 (11:08→21:38)
--- NOTE | 2017-05-19 11:26 | HHI.PR ---
Subjective Remarks No further tachycardia. Patient's main request today is if he can eat. We discussed that he needs to have a swallow evaluation prior to starting any diet. His ability to speak demonstrates improve muscular control and tone in mouth and throat. Objective Vital Signs Date Time Temp Pulse Resp B/P Pulse Ox O2 Delivery O2 Flow Rate FiO2 05/19/17 09:35 97 T-piece 28 05/19/17 08:00 98.2 96 20 102/55 94 05/19/17 04:00 Trach Collar 28 05/19/17 04:00 98.4 108 18 122/70 96 05/19/17 00:00 98.8 100 20 111/62 96 05/19/17 00:00 Trach Collar 28 05/18/17 20:00 98.7 95 18 103/59 97 05/18/17 20:00 Trach Collar 28 05/18/17 20:00 93 05/18/17 19:41 99 Trach Collar 6.00 28 05/18/17 16:00 97.8 93 20 109/64 92 05/18/17 16:00 T-Piece 21 05/18/17 12:00 98.7 97 20 118/66 95 05/18/17 12:00 T-Piece 21 I/O 05/18/17 05/18/17 05/18/17 05/19/17 05/19/17 05/19/17 07:00 15:00 23:00 07:00 15:00 23:00 Intake Total 100 ml 736 ml 642 ml 587 ml Output Total 650 ml 650 ml 400 ml 200 ml Balance -550 ml 86 ml 242 ml 387 ml Intake Oral 100 ml 0 ml 0 ml IV Total 2 ml 100 ml Tube Feeding 484 ml 492 ml 537 ml Tube Irrigant 50 ml 50 ml Other 250 ml Output Urine Total 650 ml 650 ml 400 ml 200 ml # Bowel Movements 4 2 3 0 Result Diagram: 05/19/1730 05/19/1730 Objective Remarks GENERAL: NAD, A&Ox3 HEAD: Normocephalic. NECK: Supple, trachea midline. No lymphadenopathy. Tracheostomy present. EYES: No scleral icterus. No injection or drainage. CARDIOVASCULAR: Regular rate and rhythm without murmurs, gallops, or rubs. RESPIRATORY: Breath sounds equal bilaterally. No accessory muscle use. GASTROINTESTINAL: Abdomen soft, non-tender, nondistended. MUSCULOSKELETAL: No cyanosis, or edema. SKIN: Warm and dry. NEURO: No focal neurological deficitis. Diffuse debility and weakness. 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 Now extubated, with tracheostomy present. Swallow evaluation ordered today. Osmotic demyelination syndrome (ODS) Acute toxic metabolic encephalopathy secondary to hypercarbic respiratory failure Seizures (History of EtOH induced seizure withdrawal) Chronic benzodiazepine use Bilateral thalamic CVA ODS secondary to severe hyponatremia (99) with need for fluids and pressors for shock, at arrival to ER. Etiology for shock related to alcoholism No recent seizure activity Prior seizures had been alcohol related New brain damage increases risk for chronic seizure disorder Continue Keppra 1000mg BID Continue Ativan PRN for seizures Thiamine Neurology following Roxanol for Pain Alcohol dependence No further dependence Off Alcohol Acute hypoxemic hypercapnic respiratory failure Tracheostomy placed 04/16/17 Pulmonology following Chronic Systolic heart failure Hypotension EF of 35-40% on 03/04/17 Follow clinically BP stable on Midodrine TID Follow BP EtOH cirrhosis Hx Hyperammonemia Lactulose PRN Ammonia level in AM Hiatal hernia Sigmoid diverticulosis Follow clinically Dysphagia Hypoalbuminemia Chronic Disease and Compromised PO intake from chronic disease Follow albumin levels Speech therapy Continue tube feeds Anemia Stable recently Follow CBC Hx Aspiration pneumonia, PSAE in sputum Acinetobacter pneumonia (See infection history below) Leukocytosis resolved ID Following Colistin Nebs Probiotics History of hypothyroidism Monitor TSH (tomorrow AM) Hyperglycemia Resolved Wean blood sugar checks to once daily Hypokalemia: Follow potassium Monitor levels Replace as needed Global Debility and Decompensation OT, PT, ST GI Prevacid PRN Laxative DVT Prophylaxis Heparin SCDs Infection History: Pertinent cultures 04/29 - MDR Acinetobacter 04/26 - urine -C. albicans 04/15 Sputum cx: PSAE 04/15 urine cx: Klebsiella 04/15 BC: NGTD 04/12 BC: NGTD 04/08 - blood cultures 2 - no growth 04/08 - sputum - no growth 04/05 - urine -C GLABRATA AND C. ALBICANS 03/29 - blood cultures 2 - NGTD 03/25 - sputum --Acinetobacter. 03/25 - urine - NGTD 03/25 - blood cultures 2 -no growth 03/22 - urine - no growth 03/22 - blood cultures 2 - negative 03/20 - blood cultures 2 - no growth 03/11 - urine - Escherichia coli 03/02 - blood cultures 2 - no growth Cognitive Status: Communication is difficult, but patient is able to communicate and is competent for making decisions Contacts: Tamanna Sandhu, daughter/ HCP: from [facility] [phone] now confirmed transferred to [facility] in [place] facility ([phone]) Code status full code Discharge Planning: CM working on LTAC placement. Difficult placement due to trach. Mihir Harman MD May 19, 2017 11:26
[2017-05-19] MEDS: cefTRIAXone INJ 1,000 MG in SODIUM CHLORIDE 0.9% INJ 100 ML IV SCH (21:37)
[2017-05-20] VITALS (8 sets, daily range): BP systolic 104–117; BP diastolic 54–71; PULSE 91–102; RESP 20–21; TEMP 98.1–99.1; O2SAT 93–97
[2017-05-20 07:37] LABS: HEMATOCRIT 26.6 % (39.0-51.0); MEAN CELL VOLUME 97.3 FL (80.0-100.0); MEAN CORPUSCULAR HEMOGLOBIN 32.9 PG (27.0-34.0); MEAN CORPUSCULAR HGB CONC 33.8 % (32.0-36.0); PLATELET COUNT 141 TH/MM3 (150-450); RED BLOOD COUNT 2.73 MIL/MM3 (4.50-5.90); RED CELL DISTRIBUTION WIDTH 14.1 % (11.6-17.2); REVIEW FLAG FINAL; WHITE BLOOD COUNT 8.8 TH/MM3 (4.0-11.0)
[2017-05-20 07:57] LABS: BICARBONATE 29.2 MEQ/L (21.0-32.0); POTASSIUM 3.5 MEQ/L (3.5-5.1)
[2017-05-20] MEDS: CHLORHEXIDINE 0.12% (ORAL KIT) 15 ML CUP MT SCH ×2 (08:00→22:01)
[2017-05-20] MEDS: SODIUM CHLORIDE 0.9% FLUSH 10 ML FLUSH IVF SCH (09:00)
[2017-05-20] MEDS: SODIUM CHLORIDE 0.9% FLUSH 10 ML FLUSH IV FLUSH SCH ×2 (09:13→22:01)
[2017-05-20] MEDS: ARTIFICIAL TEARS OPTH SOLN 15 ML BTL EACH EYE SCH ×3 (09:14→17:17)
[2017-05-20] MEDS: NYSTATIN 100,000 U/GM PWD 15 GM BTL TOPICAL SCH ×2 (09:14→22:06)
[2017-05-20] MEDS: SODIUM HYPOCHLORITE 0.125% 500 ML BTL TOPICAL SCH (09:14)
[2017-05-20] MEDS: MUPIROCIN 2% OINT 1 APPLIC/GM SYR EACH NARE SCH ×2 (09:18→22:01)
[2017-05-20] MEDS: LANSOPRAZOLE SOLUTAB 30 MG TAB NG SCH (09:18)
[2017-05-20] MEDS: HEPARIN SODIUM - SQ 10,000 UNITS/ML VIAL SQ SCH ×2 (09:19→22:02)
[2017-05-20] MEDS: levETIRAcetam 500 MG/5 ML UDC NG SCH ×2 (09:19→22:02)
[2017-05-20] MEDS: THIAMINE HCL 100 MG TAB PO SCH (09:20)
[2017-05-20] MEDS: FUROSEMIDE 20 MG/2 ML VIAL IV PUSH SCH (09:20)
[2017-05-20] MEDS: LACTOBACILLUS ACIDOPHILUS TAB PO SCH ×3 (09:20→17:17)
[2017-05-20] MEDS: RIFAXIMIN 550 MG TAB PO SCH ×2 (09:21→22:02)
--- NOTE | 2017-05-20 12:26 | HHI.HCPN ---
Reason for visit a. To assist with evaluation and management of symptoms including: dyspnea, pain. b. To assist medical decision maker(s) with: better understanding of current medical conditions; weighing benefits/burdens of medical treatment options; making medical treatment decisions. . Subjective/Interval History Palliative care follow-up for emotional support to patient and daughter and for medical update as requested by patient's daughter who is currently in custody of [facility]. Mr. Sandhu is a 61 y/o male with a diagnosis of osmotic demyelination syndrome. Patient status post PEG tube placement on and tracheostomy on 04/16/17. Patient currently tolerating T-collar. He was transferred out of medical ICU to medical floor on 05/07/17. Patient was seen in his room, resting in bed in no acute distress. Patient awake, alert. Following commands and communicating by mouthing words and nodding head to yes/ no questions. Patient moving all extremities to command. Patient denies pain or discomfort at this time. Verbalizing that his wishing to drink and eat, swallowing evaluation was requested yesterday but unable to be completed secondary to increased tracheal secretions, patient unable to tolerate Passy- [place] valve. Patient remains afebrile, stable hemodynamically. Tolerating T- collar at 6 L O2, pulse oximeter in the high 90s. Laboratory workup today reveals WBC 8.8, Hgb 9.0, platelet count 141. Sodium 135, potassium 3.5, BUN/ creatinine 10/0.24. Urine culture 05/16/17 showing Klebsiella pneumoniae and Enterococcus faecalis. Patient currently on ceftriaxone. Most recent chest x- ray 05/16/17 showing improving lung aeration with decreasing airspace disease, persistent left basilar consolidation. Ongoing discharge planning. Likely placement to long-term facility. No family at beside during my visit. Telephone call to patient's daughter Tamanna Sandhu who is currently in custody of [facility]. Awaiting return call for medical update. 12:20. telephone conversation with patient's daughter Tamanna Sandhu. Medical update provided. Goals of care remains unchanged. Daughter appreciative of my call and medical update. . Family/friend interactions See interval note. . Advance Directives Living Will: Never completed Health Care Surrogate: Never completed Durable Power of [employer] Certified Network Associate: Never completed Advance Directive Specifics Health Care Surrogate(s): Margot Nolen is, per [place] [facility]. Now in [facility] (#[phone]). Facilitation of conversations with Tamanna can be arranged through booking (#[phone]) in emergency situations to address goals of care.Ask for a Otoe on staff as shifts rotate throughout the week. Significant change in goals: Goals of care remain unchanged. . Objective Vital Signs Date Time Temp Pulse Resp B/P Pulse Ox O2 Delivery O2 Flow Rate FiO2 05/20/17 09:20 97 T-piece 28 05/20/17 09:00 T-Piece 6.00 28 05/20/17 08:00 98.2 96 20 116/60 94 05/20/17 04:00 T-Piece 28 05/20/17 04:00 98.1 98 20 114/65 96 05/20/17 00:00 T-Piece 28 05/20/17 00:00 99.1 102 21 117/62 05/19/17 20:48 104 05/19/17 20:00 99.9 92 20 104/54 05/19/17 20:00 96 T-Piece 28 05/19/17 16:00 98.5 91 20 98/65 96 Intake & Output 05/20/17 05/20/17 07:00 19:00 Intake Total 1134 ml Output Total 1000 ml Balance 134 ml IV Total 100 ml Tube Feeding 884 ml Tube Irrigant 150 ml Output Urine Total 1000 ml # Bowel Movements 2 Physical Exam CONSTITUTIONAL/GENERAL: This is an thin, pale appearing patient, in no apparent distress. O2 via T-collar. TUBES/LINES/DRAINS: Tracheostomy, PEG tube, Johns, SCDs. Bilateral heel boots. SKIN: Ecchymosis bilateral UEs and face. Erythema/rash to forehead and bilateral cheeks, resolving. Skin temperature appropriate. CARDIOVASCULAR: Regular rate and rhythm. Edema to upper and lower extremities. RESPIRATORY/CHEST: Symmetric, unlabored breathing. Coarse rhonchi anteriorly. GASTROINTESTINAL: Abdomen round, soft, large. Positive bowel sounds. GENITOURINARY: Without palpable bladder distension. Johns catheter in place. Erythema groin area, scrotal edema noted. MUSCULOSKELETAL: Generalized edema noted. No mottling or clubbing. Moving bilateral arms to command. Able to reach to face with right arm. NEUROLOGICAL: Awake, alert. Interactive, communicating by nodding head to yes/ no questions and mouthing words. Following commands. PSYCHIATRIC: Awake and alert. Appears calm. . Diagnostic Tests Laboratory Laboratory Tests Test 05/18/17 05/19/17 05/20/17 13:22 08:30 06:51 White Blood Count 10.4 TH/MM3 8.9 TH/MM3 8.8 TH/MM3 (4.0-11.0) (4.0-11.0) (4.0-11.0) Red Blood Count 2.67 MIL/MM3 2.62 MIL/MM3 2.73 MIL/MM3 (4.50-5.90) (4.50-5.90) (4.50-5.90) Hemoglobin 8.8 GM/DL 8.5 GM/DL 9.0 GM/DL (13.0-17.0) (13.0-17.0) (13.0-17.0) Hematocrit 25.8 % 25.4 % 26.6 % (39.0-51.0) (39.0-51.0) (39.0-51.0) Mean Corpuscular Volume 96.6 FL 96.8 FL 97.3 FL (80.0-100.0) (80.0-100.0) (80.0-100.0) Mean Corpuscular Hemoglobin 32.8 PG 32.5 PG 32.9 PG (27.0-34.0) (27.0-34.0) (27.0-34.0) Mean Corpuscular Hemoglobin 33.9 % 33.6 % 33.8 % Concent (32.0-36.0) (32.0-36.0) (32.0-36.0) Red Cell Distribution Width 13.8 % 13.9 % 14.1 % (11.6-17.2) (11.6-17.2) (11.6-17.2) Platelet Count 156 TH/MM3 145 TH/MM3 141 TH/MM3 (150-450) (150-450) (150-450) Mean Platelet Volume 8.1 FL 7.7 FL 7.9 FL (7.0-11.0) (7.0-11.0) (7.0-11.0) Sodium Level 135 MEQ/L 133 MEQ/L 135 MEQ/L (136-145) (136-145) (136-145) Potassium Level 3.8 MEQ/L 3.7 MEQ/L 3.5 MEQ/L (3.5-5.1) (3.5-5.1) (3.5-5.1) Chloride Level 102 MEQ/L 98 MEQ/L 99 MEQ/L (98-107) (98-107) (98-107) Carbon Dioxide Level 26.0 MEQ/L 25.9 MEQ/L 29.2 MEQ/L (21.0-32.0) (21.0-32.0) (21.0-32.0) Anion Gap 7 MEQ/L (5-15) 9 MEQ/L (5-15) 7 MEQ/L (5-15) Blood Urea Nitrogen 7 MG/DL (7-18) 9 MG/DL (7-18) 10 MG/DL (7-18) Creatinine 0.23 MG/DL 0.34 MG/DL 0.24 MG/DL (0.60-1.30) (0.60-1.30) (0.60-1.30) Estimat Glomerular Filtration 417 ML/MIN 266 ML/MIN 397 ML/MIN Rate (>89) (>89) (>89) Random Glucose 113 MG/DL 134 MG/DL 122 MG/DL (74-106) (74-106) (74-106) Calcium Level 8.4 MG/DL 8.0 MG/DL 8.1 MG/DL (8.5-10.1) (8.5-10.1) (8.5-10.1) Thyroid Stimulating Hormone 3.460 uIU/ML 3rd Gen (0.358-3.740) Result Diagram: 05/20/17 0651 05/20/17 0651 Microbiology Microbiology Date/Time Procedure Status Source Growth 05/16/17 00:00 Urine Culture - Final Complete Urine Catheterized Urine Klebsiella Pneumoniae Enterococcus Faecalis Procedures * 04/16/17 -tracheostomy placement * 04/16/17 -endotracheal extubation * 04/15/17 - PEG tube placed. * 03/25/17 -Endotracheal intubation. . Assessment and Plan Disease Oriented Problem List: (1) Sepsis due to Acinetobacter Comment: Sepsis syndrome secondary to pneumonia -MDR Acinetobacter (2) Acute hypoxemic respiratory failure Comment: Remains intubated on mechanical ventilation. 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 Now status post tracheostomy on 04/16/17. Currently tolerating O2 via T collar. (2) Pain 0-10 Scale: 0 Comment: Prolonged hospitalization/bedrest, muscular weakness and atrophy. (3) Debility 0-10 Scale: Unable to quantify Comment: Secondary to acute illness and prolonged hospitalization. Pertinent Non-Medical Issues Psychosocial: 61-year-old with long-standing history of alcohol use and abuse, 1 daughter who is incarcerated in the [facility]. Spiritual: No reported. Legal: Daughter Tamanna is, per [facility] care decision proxy. She is currently incarcerated at [facility]. They are permitting her to participate in decisions at this time. Ethical issues impacting care: As stated above. . Important Contacts * Tamanna Sandhu, daughter/ HCP: Margot Nolen is, per [facility] care decision proxy. . Now in [facility] (#[phone]). Facilitation of conversations with Tamanna can be arranged through booking (#[phone]) in emergency situations to address goals of care.Ask for a Otoe on staff as shifts rotate throughout the week. * Guillermo Roberts, daughter friend: [phone] (cell)- has frequent contact jr Holloway - has been very helpful. Prognosis Prognosis: Poor prognosis for meaningful recovery. . Code Status: Full Code Plan * HEALTHCARE DECISION-MAKING: Patient participating in healthcare decision- making. Patient is , according to [place] statutes, health care proxy decision making falls to his only daughter, Tamanna. Now in [facility] (#[phone]). Facilitation of conversations with Tamanna can be arranged through booking (#[phone]) in emergency situations to address goals of care. Ask for a Lucila on staff as shifts rotate throughout the week. * FULL CODE * GOALS OF CARE: 05/20/17 -goals of care remains unchanged. As per patient and daughter, goal of therapy is to continue with aggressive management. Ongoing discharge planning, will likely need long-term placement vs. LTAC. Difficult placement secondary to needs. 05/20/17 -Telephone conversation with daughter Tamanna Sandhu. medical update provided. daughter confirmed goals of care remain unchanged. Daughter verbalized being hopeful that patient will continue recuperating. Reviewed difficult placement given his current needs. * SYMPTOMS: =Dyspnea: secondary to respiratory failure. Tolerating O2 via T collar. =Debility: Secondary to burden of disease, acute illness and prolonged hospitalization. Improvement and multiple in of extremities noted. Significant improvement in muscle strength. =Pain: secondary to prolonged hospitalization, tubes and bedrest. Oxycodone available as needed. * Palliative care contact information has been provided to patient's daughter and her boyfriend. * Palliative care will continue to follow further clarifications of goals of care as patient's clinical course evolves. . Time Spent Total Floor Time (mins): 45 (Total time to include review of medical records, physcal exam and telephone conversation with pt's daughter. ) >50% Counseling/Coord of Care: Yes Attestation To help prompt me to consider important information that might be impacting today's encounter and assessment, information from prior notes written by myself or my colleagues may have been "brought forward" into today's note. My signature on this note, however, is an attestation that I personally performed the exam, history, and/or decision-making noted today, and, unless otherwise indicated, the interactions with patient, family, and staff as well as the review of records all occurred today. I also attest that the listed assessment and stated plan reflect my best clinical judgment today based on the combination of historical information, prior notes, and today's exam/ interactions. When time spent is documented, it refers only to time spent today by the signer, or if indicated, combined time spent today by collaborating physician/nurse practitioner. Melissa Mcclure May 20, 2017 12:26
--- NOTE | 2017-05-20 14:00 | HHI.PR ---
Subjective Remarks Follow-up for hyponatremia, osmotic demyelination syndrome. Patient follows commands appropriately. He is requesting again to see if he can eat. Per nursing staff patient is having a lot of secretions. No fever or chills. Tolerating tube feed well. Objective Vitals Vital Signs Date Time Temp Pulse Resp B/P Pulse Ox O2 Delivery O2 Flow Rate FiO2 05/20/17 12:00 98.1 91 20 109/66 96 05/20/17 09:20 97 T-piece 28 05/20/17 09:00 T-Piece 6.00 28 05/20/17 08:00 98.2 96 20 116/60 94 05/20/17 04:00 T-Piece 28 05/20/17 04:00 98.1 98 20 114/65 96 05/20/17 00:00 T-Piece 28 05/20/17 00:00 99.1 102 21 117/62 05/19/17 20:48 104 05/19/17 20:00 99.9 92 20 104/54 05/19/17 20:00 96 T-Piece 28 05/19/17 16:00 98.5 91 20 98/65 96 I/O 05/19/17 05/19/17 05/19/17 05/20/17 05/20/17 05/20/17 07:00 15:00 23:00 07:00 15:00 23:00 Intake Total 587 ml 872 ml 673 ml 461 ml Output Total 200 ml 1200 ml 625 ml 375 ml Balance 387 ml -328 ml 48 ml 86 ml Intake Oral 0 ml IV Total 2 ml 100 ml Tube Feeding 537 ml 620 ml 473 ml 411 ml Tube Irrigant 50 ml 100 ml 50 ml Other 250 ml Output Urine Total 200 ml 1200 ml 625 ml 375 ml # Bowel Movements 0 1 1 1 Result Diagram: 05/20/17 0651 05/20/17 0651 Imaging Last Impressions Chest X-Ray 05/16/17 0000 Signed Impressions: Service Date/Time: May 12:56 - CONCLUSION: Improving lung aeration with decreasing air space disease. Persistent left basilar consolidation. Carlos Galindo MD Abdomen/Pelvis CT 05/08/17 0000 Signed Impressions: Service Date/Time: Monday, May 08, 2017 23:10 - CONCLUSION: Significant fluid throughout the abdomen and the pelvis with what appears to be a cirrhotic appearing liver and splenomegaly. There is significant small bowel wall thickening throughout the lower abdomen and the upper pelvis without evidence of obstruction Milo Muhammad MD Abdomen X-Ray 05/08/17 Signed Impressions: Service Date/Time: Monday, May 08, 2017 15:30 - CONCLUSION: 1. There is diffuse, mild gaseous distention of the small bowel. No findings to indicate obstruction. Mihir Harry MD Liver Ultrasound 04/15/17 Signed Impressions: Service Date/Time: Saturday, April 15, 2017 09:24 - CONCLUSION: 1. Abnormal appearance of the pancreas with a nonspecific hypoechoic area involving the posterior part of the pancreas along the head and body region. Recommend CT scan of the abdomen with oral and IV contrast further evaluation. 2. Fatty infiltration throughout the liver. 3. There is thickening of the gallbladder wall at 6 mm. This is suggestive of chronic gallbladder disease. 4. Small amount of free fluid adjacent to the liver and spleen in the upper abdomen.. 5. Right-sided pleural effusion. Víctor Rosas MD Head CT 04/12/17 0000 Signed Impressions: Service Date/Time: Wednesday, April 12, 2017 21:30 - CONCLUSION: Pontine encephalomalacia. Left mastoiditis. Casper Alva MD Head Magnetic Resonance Angiography 03/28/17 0000 Signed Impressions: Service Date/Time: March 17:22 - CONCLUSION: Unremarkable examination. Bety Castillo MD Brain MRI 03/28/17 Signed Impressions: Service Date/Time: March 17:22 - CONCLUSION: 1. 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 Small subacute ischemic bilateral thalamic infarcts. 2. There has been no significant change when compared to the prior exam. Yinka Harman MD Lower Extremity Ultrasound 03/25/17 0000 Signed Impressions: Service Date/Time: Saturday, March 25, 2017 22:17 - CONCLUSION: No evidence of DVT. Víctor Rosas MD CT Angiography 03/21/17 0000 Signed Impressions: Service Date/Time: March 00:33 - CONCLUSION: No evidence of pulmonary embolism is identified. Mild atelectasis left lung base. Fluid or phlegm within the trachea. Milo Muhammad MD Abdomen Ultrasound 03/20/17 0000 Signed Impressions: Service Date/Time: Monday, March 20, 2017 11:38 - CONCLUSION: 1. Hepatosplenomegaly without focal lesion. 2. Probable sludge within the lumen of the gallbladder. No intrahepatic duct. Cheo Martínez MD Shoulder X-Ray 03/02/17 1404 Signed Impressions: Service Date/Time: Thursday, March 02, 2017 15:18 - CONCLUSION: No evidence of recent bony injury. Deformity of the lateral left clavicle suggests old healed trauma. Cheo Martínez MD Maxillofacial CT 03/02/17 1342 Signed Impressions: Service Date/Time: Thursday, March 02, 2017 14:52 - CONCLUSION: Negative CT of the facial bones. Cheo Martínez MD Chest CT 03/02/17 1342 Signed Impressions: Service Date/Time: Thursday, March 02, 2017 15:04 - CONCLUSION: 1. Abnormal appearance of the lateral left clavicle suggesting a combination of acute and chronic bony injury. Fracture lucencies without bridging callus is seen the region of the coracoid process. 2. The lungs are clear. No evidence of pneumothorax. 3. Moderate size hiatus hernia. Cheo Martínez MD Cervical Spine CT 03/02/17 1342 Signed Impressions: Service Date/Time: Thursday, March 02, 2017 14:52 - CONCLUSION: Negative CT cervical spine. Cheo Martínez MD Objective Remarks GENERAL: Alert, NAD. SKIN: Warm and dry. HEAD: Normocephalic. EYES: No scleral icterus. No injection or drainage. NECK: Supple, trachea midline. No JVD or lymphadenopathy. Status post tracheostomy CARDIOVASCULAR: Regular rate and rhythm without murmurs, gallops, or rubs. RESPIRATORY: Breath sounds equal bilaterally. No accessory muscle use. GASTROINTESTINAL: Abdomen soft, non-tender, nondistended. MUSCULOSKELETAL: No cyanosis, or edema. BACK: Nontender without obvious deformity. No CVA tenderness. Procedures 03/02/2017 - arterial line and central line placement. 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 Sandhu is a 61 year old male with a history of alcohol abuse, severe hypernatremia who presented to the ED on 03/02/2017 due to worsening fatigue, weakness that started 13 days prior to this hospitalization. He was found to have significant delirium. He admitted to drinking alcohol as well as taking xanax as well. ED work up indicated Na 99, Bilirubin 8.9, Lactate 9.8, Ammonia 60, CK 7000, troponin 4.9, Creatinine 1.5, bicarb 13. His WBC was 12, Platelets 112, INR 1.9. Meld score 26. He was severely hydrated. Patient was started on isotonic saline in an effort to improve hypovolemia. Patients sodium corrected too rapidly. Patient was treated for distributive shock, alcohol withdrawal and electrolyte imbalances in the ICU. - Osmotic demyelination syndrome - Chronic severe hyponatremia - Bilateral thalamic stroke - Seizures - Osmotic demyelination syndrome secondary to rapid correction of severe hyponatremia which was due to isotonic volume repletion. - Continue Keppra 1000 mg every 12 hours. - Lorazepam 1 mg every 12 hours when necessary for seizures. - Sodium is currently within normal range 135. Potassium 3.5. - Alcoholic liver disease - Alcohol dependence - CT abdomen shows liver cirrhosis. - Continue lactulose 30 mL by mouth every 12 hours when necessary - Continue rifaximin 550 mg by mouth twice a day. We may consider discontinuing rifaximin. - No acute concern for alcohol withdrawal at this point. Continue folic acid and thiamine. -We'll switch furosemide 20 mg IV twice a day to furosemide 20 mg by mouth daily. - Acute hypoxemic and hypercapnic respiratory failure - Status post tracheostomy on 04/16/2017. Pulmonology following. - Urinary tract infection - Urine culture is growing Klebsiella pneumoniae and Enterococcus faecalis. - Continue ceftriaxone 1 g daily Full code. Heparin subcutaneous. Kole Gustafson DO May 20, 2017 1:59 pm
[2017-05-20] MEDS: HYOSCYAMINE SOLN 0.125 MG/ML 15 ML BTL PO PRN (17:17)
[2017-05-20] MEDS: cefTRIAXone INJ 1,000 MG in SODIUM CHLORIDE 0.9% INJ 100 ML IV SCH (22:00)
[2017-05-20] MEDS: MORPHINE SULFATE ORAL SOLN 10 MG/0.5 ML SYRINGE G-TUBE PRN (22:13)
[2017-05-21] VITALS (8 sets, daily range): BP systolic 104–117; BP diastolic 56–68; PULSE 78–107; RESP 18–21; TEMP 97.8–99; O2SAT 95–99
[2017-05-21] MEDS: levETIRAcetam 500 MG/5 ML UDC NG SCH ×2 (07:46→20:38)
[2017-05-21] MEDS: MUPIROCIN 2% OINT 1 APPLIC/GM SYR EACH NARE SCH ×2 (07:46→20:39)
[2017-05-21] MEDS: THIAMINE HCL 100 MG TAB PO SCH (07:46)
[2017-05-21] MEDS: LACTOBACILLUS ACIDOPHILUS TAB PO SCH ×3 (07:46→17:36)
[2017-05-21] MEDS: LANSOPRAZOLE SOLUTAB 30 MG TAB NG SCH (07:47)
[2017-05-21] MEDS: FOLIC ACID 1 MG TAB PEG SCH (07:47)
[2017-05-21] MEDS: RIFAXIMIN 550 MG TAB PO SCH ×2 (07:47→20:39)
[2017-05-21] MEDS: HEPARIN SODIUM - SQ 10,000 UNITS/ML VIAL SQ SCH ×2 (07:47→20:39)
[2017-05-21] MEDS: SODIUM CHLORIDE 0.9% FLUSH 10 ML FLUSH IV FLUSH SCH ×2 (07:48→20:39)
[2017-05-21] MEDS: NYSTATIN 100,000 U/GM PWD 15 GM BTL TOPICAL SCH ×2 (07:49→20:40)
[2017-05-21] MEDS: SODIUM HYPOCHLORITE 0.125% 500 ML BTL TOPICAL SCH (07:49)
[2017-05-21] MEDS: ARTIFICIAL TEARS OPTH SOLN 15 ML BTL EACH EYE SCH ×3 (07:49→17:37)
[2017-05-21] MEDS: CHLORHEXIDINE 0.12% (ORAL KIT) 15 ML CUP MT SCH ×2 (08:00→20:39)
[2017-05-21] MEDS ORDERED: FUROSEMIDE 40 MG/5 ML UNIT DOSE CUP NG SCH (09:00)
[2017-05-21] MEDS: SODIUM CHLORIDE 0.9% FLUSH 10 ML FLUSH IVF SCH (09:00)
--- NOTE | 2017-05-21 11:10 | HHI.PR ---
Subjective Remarks Follow-up for hyponatremia, osmotic demyelination syndrome. Patient seen and examined. Patient awake, alert and oriented. T-piece in place at 28%. Denies any new acute events. Denies any fever, chills, cough, shortness of breath, headache, abdominal pain, nausea, vomiting or dysuria. Spoke with RN at bedside who has noted several loose stools and continued, thick, trach secretions. Objective Vitals Vital Signs Date Time Temp Pulse Resp B/P Pulse Ox O2 Delivery O2 Flow Rate FiO2 05/21/17 08:41 97 T-piece 5.00 28 05/21/17 08:00 98.0 87 20 104/56 99 05/21/17 04:00 98.4 89 21 110/66 96 05/21/17 00:00 97.8 93 21 112/67 97 05/20/17 23:00 T-Piece 6.00 05/20/17 20:00 98.1 94 21 109/71 93 05/20/17 20:00 93 05/20/17 16:00 98.1 92 20 104/54 93 05/20/17 16:00 T-Piece 6.00 28 05/20/17 12:00 98.1 91 20 109/66 96 05/20/17 12:00 T-Piece 6.00 28 I/O 05/20/17 05/20/17 05/20/17 05/21/17 05/21/17 05/21/17 07:00 15:00 23:00 07:00 15:00 23:00 Intake Total 461 ml 1352 ml 580 ml Output Total 375 ml 1150 ml 280 ml 250 ml Balance 86 ml -1150 ml 1072 ml 330 ml IV Total 100 ml Tube Feeding 411 ml 952 ml 480 ml Tube Irrigant 50 ml 200 ml 100 ml Other 100 ml Output Urine Total 375 ml 1150 ml 280 ml 250 ml # Bowel Movements 1 2 1 1 Result Diagram: 05/20/17 0651 05/20/17 0651 Imaging Last Impressions Chest X-Ray 05/16/17 0000 Signed Impressions: Service Date/Time: May 12:56 - CONCLUSION: Improving lung aeration with decreasing air space disease. Persistent left basilar consolidation. Carlos Galindo MD Abdomen/Pelvis CT 05/08/17 0000 Signed Impressions: Service Date/Time: Monday, May 08, 2017 23:10 - CONCLUSION: Significant fluid throughout the abdomen and the pelvis with what appears to be a cirrhotic appearing liver and splenomegaly. There is significant small bowel wall thickening throughout the lower abdomen and the upper pelvis without evidence of obstruction Milo Muhammad MD Abdomen X-Ray 05/08/17 0000 Signed Impressions: Service Date/Time: Monday, May 08, 2017 15:30 - CONCLUSION: 1. There is diffuse, mild gaseous distention of the small bowel. No findings to indicate obstruction. Mihir Harry MD Liver Ultrasound 04/15/17 0000 Signed Impressions: Service Date/Time: Saturday, April 15, 2017 09:24 - CONCLUSION: 1. Abnormal appearance of the pancreas with a nonspecific hypoechoic area involving the posterior part of the pancreas along the head and body region. Recommend CT scan of the abdomen with oral and IV contrast further evaluation. 2. Fatty infiltration throughout the liver. 3. There is thickening of the gallbladder wall at 6 mm. This is suggestive of chronic gallbladder disease. 4. Small amount of free fluid adjacent to the liver and spleen in the upper abdomen.. 5. Right-sided pleural effusion. Víctor Rosas MD Head CT 04/12/17 0000 Signed Impressions: Service Date/Time: Wednesday, April 12, 2017 21:30 - CONCLUSION: Pontine encephalomalacia. Left mastoiditis. Casper Alva MD Head Magnetic Resonance Angiography 03/28/17 0000 Signed Impressions: Service Date/Time: March 17:22 - CONCLUSION: Unremarkable examination. K. Bijan Castillo MD Brain MRI 03/28/17 0000 Signed Impressions: Service Date/Time: March 17:22 - CONCLUSION: 1. 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 Small subacute ischemic bilateral thalamic infarcts. 2. There has been no significant change when compared to the prior exam. Yinka Harman MD Lower Extremity Ultrasound 03/25/17 0000 Signed Impressions: Service Date/Time: Saturday, March 25, 2017 22:17 - CONCLUSION: No evidence of DVT. Víctor Rosas MD CT Angiography 03/21/17 0000 Signed Impressions: Service Date/Time: March 00:33 - CONCLUSION: No evidence of pulmonary embolism is identified. Mild atelectasis left lung base. Fluid or phlegm within the trachea. Milo Muhammad MD Abdomen Ultrasound 03/20/17 0000 Signed Impressions: Service Date/Time: Monday, March 20, 2017 11:38 - CONCLUSION: 1. Hepatosplenomegaly without focal lesion. 2. Probable sludge within the lumen of the gallbladder. No intrahepatic duct. Cheo Martínez MD Shoulder X-Ray 03/02/17 1404 Signed Impressions: Service Date/Time: Thursday, March 02, 2017 15:18 - CONCLUSION: No evidence of recent bony injury. Deformity of the lateral left clavicle suggests old healed trauma. Cheo Martínez MD Maxillofacial CT 03/02/17 1342 Signed Impressions: Service Date/Time: Thursday, March 02, 2017 14:52 - CONCLUSION: Negative CT of the facial bones. Cheo Martínez MD Chest CT 03/02/17 1342 Signed Impressions: Service Date/Time: Thursday, March 02, 2017 15:04 - CONCLUSION: 1. Abnormal appearance of the lateral left clavicle suggesting a combination of acute and chronic bony injury. Fracture lucencies without bridging callus is seen the region of the coracoid process. 2. The lungs are clear. No evidence of pneumothorax. 3. Moderate size hiatus hernia. Cheo Martínez MD Cervical Spine CT 03/02/17 1342 Signed Impressions: Service Date/Time: Thursday, March 02, 2017 14:52 - CONCLUSION: Negative CT cervical spine. Cheo Martínez MD Objective Remarks GENERAL: Well-nourished, well-developed male patient lying in bed in no apparent distress. SKIN: Warm and dry. Trach site with dressing in place. Lower extremities bilateral thigh 2 + pitting edema. Scrotum swelling. HEENT: Normocephalic. No scleral icterus. No injection or drainage. NECK: Supple, trachea midline. No JVD. CARDIOVASCULAR: Regular rate and rhythm. No murmur appreciated. RESPIRATORY: Breath sounds equal bilaterally. No accessory muscle use. GASTROINTESTINAL: Abdomen soft, non-tender, nondistended. PEG tube in place, dressing c/d/i. EXTREMITIES: No cyanosis, or edema. NEUROLOGICAL: Awake, alert, and oriented x 3. Mouthing words, t-collar in place. Procedures 03/02/2017 - arterial line and central line placement. 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 Sandhu is a 61 year old male with a history of alcohol abuse, severe hypernatremia who presented to the ED on 03/02/2017 due to worsening fatigue, weakness that started 13 days prior to this hospitalization. He was found to have significant delirium. He admitted to drinking alcohol as well as taking xanax as well. ED work up indicated Na 99, Bilirubin 8.9, Lactate 9.8, Ammonia 60, CK 7000, troponin 4.9, Creatinine 1.5, bicarb 13. His WBC was 12, Platelets 112, INR 1.9. Meld score 26. He was severely hydrated. Patient was started on isotonic saline in an effort to improve hypovolemia. Patients sodium corrected too rapidly. Patient was treated for distributive shock, alcohol withdrawal and electrolyte imbalances in the ICU. 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 - Continue Keppra 1000 mg every 12 hours. - Lorazepam 1 mg every 12 hours when necessary for seizures. - Sodium is currently within normal range 135. Potassium 3.5. - Recheck BMP and CBC in am. Alcoholic liver disease Alcohol dependence - CT abdomen shows liver cirrhosis. - Continue lactulose 30 mL by mouth every 12 hours when necessary - Continue rifaximin 550 mg by mouth twice a day. We may consider discontinuing rifaximin. - No acute concern for alcohol withdrawal at this point. Continue folic acid and thiamine. - DC furosemide and change to Torsemide 10 mg PO BID, due to better bioavailability. Monitor lower extremity thigh edema and close intake and output monitoring. Acute hypoxemic and hypercapnic respiratory failure - Status post tracheostomy on 04/16/2017. Pulmonology following. - Levsin available PRN for increased tracheal secretions. Urinary tract infection - Urine culture is growing Klebsiella pneumoniae and Enterococcus faecalis. - Continue ceftriaxone 1 g daily Diarrhea - Recheck c difficile specimen. Follow. DVT Prophylaxis: Heparin subcutaneous. Discussed with patient, RN, and Dr. Gustafson. Nayeli Devlin May 21, 2017 11:10 Kole Gustafson DO May 21, 2017 19:29
[2017-05-21 15:40] LABS: C. DIFF EPI 027 PRESUMPTIVE NEGATIVE (NEGATIVE); C. DIFF TOXIN PCR NEGATIVE (NEGATIVE)
[2017-05-21] MEDS: TORSEMIDE 5 MG TAB PO SCH (18:04)
[2017-05-21] MEDS: MORPHINE SULFATE ORAL SOLN 10 MG/0.5 ML SYRINGE G-TUBE PRN ×2 (18:16→21:50)
[2017-05-21] MEDS: HYOSCYAMINE SOLN 0.125 MG/ML 15 ML BTL PO PRN (18:18)
[2017-05-21] MEDS: cefTRIAXone INJ 1,000 MG in SODIUM CHLORIDE 0.9% INJ 100 ML IV SCH (20:38)
[2017-05-22] VITALS (9 sets, daily range): BP systolic 102–119; BP diastolic 60–67; PULSE 87–101; RESP 16–20; TEMP 98–98.9; O2SAT 10–100
[2017-05-22 07:21] LABS: POTASSIUM 3.6 MEQ/L (3.5-5.1)
[2017-05-22 07:37] LABS: AUTOMATED NEUTROPHIL # 7.4 TH/MM3 (1.8-7.7); BASOPHIL % 0.5 % (0.0-2.0); EOSINOPHIL # 0.2 TH/MM3 (0-0.4); EOSINOPHIL % 2.3 % (0.0-4.0); HEMATOCRIT 27.5 % (39.0-51.0); HEMO FLAGS DIFF FINAL; LYMPH % 13.9 % (9.0-44.0); LYMPHOCYTE # 1.3 TH/MM3 (1.0-4.8); MEAN CELL VOLUME 98.3 FL (80.0-100.0); MEAN CORPUSCULAR HEMOGLOBIN 33.2 PG (27.0-34.0); MEAN CORPUSCULAR HGB CONC 33.8 % (32.0-36.0); NEUT % 76.3 % (16.0-70.0); PLATELET COUNT 179 TH/MM3 (150-450); RED CELL DISTRIBUTION WIDTH 14.2 % (11.6-17.2); WHITE BLOOD COUNT 9.6 TH/MM3 (4.0-11.0)
[2017-05-22] MEDS: CHLORHEXIDINE 0.12% (ORAL KIT) 15 ML CUP MT SCH ×2 (08:00→21:45)
[2017-05-22] MEDS: FOLIC ACID 1 MG TAB PEG SCH (08:51)
[2017-05-22] MEDS: HEPARIN SODIUM - SQ 10,000 UNITS/ML VIAL SQ SCH ×2 (08:51→21:45)
[2017-05-22] MEDS: THIAMINE HCL 100 MG TAB PO SCH (08:51)
[2017-05-22] MEDS: RIFAXIMIN 550 MG TAB PO SCH (08:51)
[2017-05-22] MEDS: LANSOPRAZOLE SOLUTAB 30 MG TAB NG SCH (08:51)
[2017-05-22] MEDS: TORSEMIDE 5 MG TAB PO SCH (08:51)
[2017-05-22] MEDS: LACTOBACILLUS ACIDOPHILUS TAB PO SCH ×3 (08:51→16:59)
[2017-05-22] MEDS: SODIUM CHLORIDE 0.9% FLUSH 10 ML FLUSH IVF SCH (08:52)
[2017-05-22] MEDS: MUPIROCIN 2% OINT 1 APPLIC/GM SYR EACH NARE SCH ×2 (08:52→21:45)
[2017-05-22] MEDS: SODIUM CHLORIDE 0.9% FLUSH 10 ML FLUSH IV FLUSH SCH ×2 (08:52→21:44)
[2017-05-22] MEDS: SODIUM HYPOCHLORITE 0.125% 500 ML BTL TOPICAL SCH (08:53)
[2017-05-22] MEDS: levETIRAcetam 500 MG/5 ML UDC NG SCH ×2 (08:53→21:44)
[2017-05-22] MEDS: ARTIFICIAL TEARS OPTH SOLN 15 ML BTL EACH EYE SCH ×3 (08:53→16:59)
[2017-05-22] MEDS: NYSTATIN 100,000 U/GM PWD 15 GM BTL TOPICAL SCH ×2 (08:53→21:45)
[2017-05-22] MEDS: HYOSCYAMINE SOLN 0.125 MG/ML 15 ML BTL PO PRN (08:54)
--- NOTE | 2017-05-22 09:17 | HHI.PR ---
Subjective Remarks Follow-up for hyponatremia, osmotic demyelination syndrome. Patient seen and examined, RN at bedside. Awake, alert and oriented. Patient denies any new acute complaints. States Passy valve was not attempted yesterday due to continued secretions. Does admit to continued diarrhea, c difficile specimen negative. Denies any recent fever, chills, cough, shortness of breath, headache , abdominal pain, nausea, vomiting, or dysuria. Objective Vitals Vital Signs Date Time Temp Pulse Resp B/P Pulse Ox O2 Delivery O2 Flow Rate FiO2 05/22/17 04:00 98.8 101 18 119/64 93 05/22/17 00:00 98.1 92 18 102/60 97 05/21/17 20:08 T-Piece 6.00 05/21/17 20:00 98.4 107 18 117/67 95 05/21/17 20:00 92 05/21/17 18:00 T-Piece 6.00 28 05/21/17 17:33 98 T-piece 6.00 28 05/21/17 16:00 98.5 78 20 115/65 98 05/21/17 13:52 99.0 88 20 113/68 98 05/21/17 12:00 T-Piece 6.00 I/O 05/21/17 05/21/17 05/21/17 05/22/17 05/22/17 05/22/17 07:00 15:00 23:00 07:00 15:00 23:00 Intake Total 580 ml 1204 ml 0 ml 860 ml Output Total 250 ml 350 ml 800 ml 600 ml Balance 330 ml 854 ml -800 ml 260 ml Intake Oral 480 ml 0 ml 0 ml Tube Feeding 480 ml 524 ml 760 ml Tube Irrigant 100 ml 100 ml 100 ml Other 100 ml Output Urine Total 250 ml 350 ml 800 ml 600 ml # Voids 3 # Bowel Movements 1 2 0 0 Result Diagram: 05/22/17 0612 05/22/17 0612 Imaging Last Impressions Chest X-Ray 05/16/17 0000 Signed Impressions: Service Date/Time: May 12:56 - CONCLUSION: Improving lung aeration with decreasing air space disease. Persistent left basilar consolidation. Carlos Galindo MD Abdomen/Pelvis CT 05/08/17 0000 Signed Impressions: Service Date/Time: Monday, May 08, 2017 23:10 - CONCLUSION: Significant fluid throughout the abdomen and the pelvis with what appears to be a cirrhotic appearing liver and splenomegaly. There is significant small bowel wall thickening throughout the lower abdomen and the upper pelvis without evidence of obstruction Milo Muhammad MD Abdomen X-Ray 05/08/17 0000 Signed Impressions: Service Date/Time: Monday, May 08, 2017 15:30 - CONCLUSION: 1. There is diffuse, mild gaseous distention of the small bowel. No findings to indicate obstruction. Mihir Harry MD Liver Ultrasound 04/15/17 0000 Signed Impressions: Service Date/Time: Saturday, April 15, 2017 09:24 - CONCLUSION: 1. Abnormal appearance of the pancreas with a nonspecific hypoechoic area involving the posterior part of the pancreas along the head and body region. Recommend CT scan of the abdomen with oral and IV contrast further evaluation. 2. Fatty infiltration throughout the liver. 3. There is thickening of the gallbladder wall at 6 mm. This is suggestive of chronic gallbladder disease. 4. Small amount of free fluid adjacent to the liver and spleen in the upper abdomen.. 5. Right-sided pleural effusion. Víctor Rosas MD Head CT 04/12/17 0000 Signed Impressions: Service Date/Time: Wednesday, April 12, 2017 21:30 - CONCLUSION: Pontine encephalomalacia. Left mastoiditis. Casper Alva MD Head Magnetic Resonance Angiography 03/28/17 0000 Signed Impressions: Service Date/Time: March 17:22 - CONCLUSION: Unremarkable examination. Bety Castillo MD Brain MRI 03/28/17 0000 Signed Impressions: Service Date/Time: March 17:22 - CONCLUSION: 1. 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 Small subacute ischemic bilateral thalamic infarcts. 2. There has been no significant change when compared to the prior exam. Yinka Harman MD Lower Extremity Ultrasound 03/25/17 0000 Signed Impressions: Service Date/Time: Saturday, March 25, 2017 22:17 - CONCLUSION: No evidence of DVT. Víctor Rosas MD CT Angiography 03/21/17 0000 Signed Impressions: Service Date/Time: March 00:33 - CONCLUSION: No evidence of pulmonary embolism is identified. Mild atelectasis left lung base. Fluid or phlegm within the trachea. Milo Muhammad MD Abdomen Ultrasound 03/20/17 0000 Signed Impressions: Service Date/Time: Monday, March 20, 2017 11:38 - CONCLUSION: 1. Hepatosplenomegaly without focal lesion. 2. Probable sludge within the lumen of the gallbladder. No intrahepatic duct. Cheo Martínez MD Shoulder X-Ray 03/02/17 1404 Signed Impressions: Service Date/Time: Thursday, March 02, 2017 15:18 - CONCLUSION: No evidence of recent bony injury. Deformity of the lateral left clavicle suggests old healed trauma. Cheo Martínez MD Maxillofacial CT 03/02/17 1342 Signed Impressions: Service Date/Time: Thursday, March 02, 2017 14:52 - CONCLUSION: Negative CT of the facial bones. Cheo Martínez MD Chest CT 03/02/17 1342 Signed Impressions: Service Date/Time: Thursday, March 02, 2017 15:04 - CONCLUSION: 1. Abnormal appearance of the lateral left clavicle suggesting a combination of acute and chronic bony injury. Fracture lucencies without bridging callus is seen the region of the coracoid process. 2. The lungs are clear. No evidence of pneumothorax. 3. Moderate size hiatus hernia. Cheo Martínez MD Cervical Spine CT 03/02/17 1342 Signed Impressions: Service Date/Time: Thursday, March 02, 2017 14:52 - CONCLUSION: Negative CT cervical spine. Cheo Martínez MD Objective Remarks GENERAL: Well-nourished, well-developed male patient lying in bed in no apparent distress. SKIN: Warm and dry. Trach site with dressing in place. Lower extremities bilateral thigh 2 + pitting edema. Scrotum swelling diminished today. HEENT: Normocephalic. No scleral icterus. No injection or drainage. NECK: Supple, trachea midline. No JVD. CARDIOVASCULAR: Regular rate and rhythm. No murmur appreciated. RESPIRATORY: Breath sounds equal bilaterally. No accessory muscle use. GASTROINTESTINAL: Abdomen soft, non-tender, nondistended. PEG tube in place, dressing c/d/i. EXTREMITIES: No cyanosis, or edema. NEUROLOGICAL: Awake, alert, and oriented x 3. Mouthing words, t-collar in place. Procedures 03/02/2017 - arterial line and central line placement. 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 Sandhu is a 61 year old male with a history of alcohol abuse, severe hypernatremia who presented to the ED on 03/02/2017 due to worsening fatigue, weakness that started 13 days prior to this hospitalization. He was found to have significant delirium. He admitted to drinking alcohol as well as taking xanax as well. ED work up indicated Na 99, Bilirubin 8.9, Lactate 9.8, Ammonia 60, CK 7000, troponin 4.9, Creatinine 1.5, bicarb 13. His WBC was 12, Platelets 112, INR 1.9. Meld score 26. He was severely hydrated. Patient was started on isotonic saline in an effort to improve hypovolemia. Patients sodium corrected too rapidly. Patient was treated for distributive shock, alcohol withdrawal and electrolyte imbalances in the ICU. 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 - Continue Keppra 1000 mg every 12 hours. - Lorazepam 1 mg every 12 hours when necessary for seizures. - Sodium is currently within normal range 135. Potassium 3.5. - Recheck BMP and CBC in am. Alcoholic liver disease Alcohol dependence - CT abdomen shows liver cirrhosis. - Continue lactulose 30 mL by mouth every 12 hours when necessary - Continue rifaximin 550 mg by mouth twice a day. We may consider discontinuing rifaximin. - No acute concern for alcohol withdrawal at this point. Continue folic acid and thiamine. - Continue Torsemide 10 mg PO BID. Monitor BP. Acute hypoxemic and hypercapnic respiratory failure - Status post tracheostomy on 04/16/2017. Pulmonology following. - Levsin available PRN for increased tracheal secretions. Urinary tract infection - Urine culture is growing Klebsiella pneumoniae and Enterococcus faecalis. - Continue ceftriaxone 1 g daily Diarrhea - C difficile recheck negative. DVT Prophylaxis: Heparin subcutaneous. Discussed with patient, RN, and Dr. Gustafson. Discharge Planning Last CM note: 05/17/17 Pt is going to be a difficult placement due to payor source and level of care at this time. Referral given to [facility] ([phone]) and [facility] ([phone]). [facility] by: [facility], [facility], [facility], [facility], [facility], [facility], [facility], and [facility] Pt dtr is service advocate contact Amie Sandhu who is presently in the [facility] ([phone]) booking number #[phone], also brother Humberto Sandhu ([phone]) Nayeli Devlin May 22, 2017 09:17
[2017-05-22] MEDS: MORPHINE SULFATE ORAL SOLN 10 MG/0.5 ML SYRINGE G-TUBE PRN ×2 (11:48→21:44)
[2017-05-22] MEDS: NYSTATIN SUSP 500,000 U/5 ML CUP SWISH-SWAL SCH ×2 (16:59→21:43)
[2017-05-22] MEDS: cefTRIAXone INJ 1,000 MG in SODIUM CHLORIDE 0.9% INJ 100 ML IV SCH (21:44)
[2017-05-23] VITALS (10 sets, daily range): BP systolic 105–116; BP diastolic 61–71; PULSE 86–97; RESP 16–20; TEMP 98.2–99.3; O2SAT 95–100
[2017-05-23] MEDS: CHLORHEXIDINE 0.12% (ORAL KIT) 15 ML CUP MT SCH ×2 (08:00→20:00)
[2017-05-23] MEDS: ARTIFICIAL TEARS OPTH SOLN 15 ML BTL EACH EYE SCH ×3 (09:00→16:56)
[2017-05-23] MEDS: SODIUM CHLORIDE 0.9% FLUSH 10 ML FLUSH IVF SCH (09:00)
[2017-05-23] MEDS: NYSTATIN 100,000 U/GM PWD 15 GM BTL TOPICAL SCH ×2 (09:00→21:00)
[2017-05-23] MEDS ORDERED: TORSEMIDE 5 MG TAB PO SCH (09:00)
[2017-05-23] MEDS: levETIRAcetam 500 MG/5 ML UDC NG SCH ×2 (09:28→22:49)
[2017-05-23] MEDS: LACTOBACILLUS ACIDOPHILUS TAB PO SCH ×3 (09:28→16:56)
[2017-05-23] MEDS: NYSTATIN SUSP 500,000 U/5 ML CUP SWISH-SWAL SCH ×4 (09:28→22:50)
[2017-05-23] MEDS: LANSOPRAZOLE SOLUTAB 30 MG TAB NG SCH (09:28)
[2017-05-23] MEDS: FOLIC ACID 1 MG TAB PEG SCH (09:28)
[2017-05-23] MEDS: HEPARIN SODIUM - SQ 10,000 UNITS/ML VIAL SQ SCH ×2 (09:29→22:50)
[2017-05-23] MEDS: MUPIROCIN 2% OINT 1 APPLIC/GM SYR EACH NARE SCH ×2 (09:29→22:48)
[2017-05-23] MEDS: THIAMINE HCL 100 MG TAB PO SCH (09:29)
[2017-05-23] MEDS: SODIUM HYPOCHLORITE 0.125% 500 ML BTL TOPICAL SCH (09:30)
[2017-05-23] MEDS: SODIUM CHLORIDE 0.9% FLUSH 10 ML FLUSH IV FLUSH SCH ×2 (09:31→22:49)
--- NOTE | 2017-05-23 10:21 | HHI.PR ---
Subjective Remarks Written by Nayeli Devlin, acting as scribe for Dr. Gustafson on 05/23/17 at 1355. Follow-up for hyponatremia, osmotic demyelination syndrome. Patient seen and examined today. Patient lying comfortably in bed, tired today, mouthing that he just feels under the weather. Patient denies any recent fever, chills, cough, headache, shortness of breath, abdominal pain, nausea, vomiting or diarrhea. Spoke to RN at bedside, she states that patient's secretions are thick and respiratory does not feel comfortable trying PMV. Will continue to monitor. Afebrile. Positive BM. Objective Vitals Vital Signs Date Time Temp Pulse Resp B/P Pulse Ox O2 Delivery O2 Flow Rate FiO2 05/23/17 05:13 98.9 97 16 113/71 97 05/22/17 23:58 98.3 94 16 107/67 97 05/22/17 21:30 T-Piece 6.00 05/22/17 20:00 98.0 87 16 102/65 100 05/22/17 20:00 87 05/22/17 17:56 98 T-piece 6.00 28 05/22/17 16:00 98.0 87 20 111/64 98 05/22/17 13:27 18 05/22/17 12:00 98.5 87 20 103/60 98 I/O 05/22/17 05/22/17 05/22/17 05/23/17 05/23/17 05/23/17 07:00 15:00 23:00 07:00 15:00 23:00 Intake Total 860 ml 1858 ml Output Total 600 ml 1050 ml Balance 260 ml -1050 ml 1858 ml Intake Oral 0 ml IV Total 476 ml Tube Feeding 760 ml 1282 ml Tube Irrigant 100 ml 100 ml Output Urine Total 600 ml 1050 ml # Bowel Movements 0 Result Diagram: 05/22/17 0612 05/22/17 0612 Imaging Last Impressions Chest X-Ray 05/16/17 0000 Signed Impressions: Service Date/Time: May 12:56 - CONCLUSION: Improving lung aeration with decreasing air space disease. Persistent left basilar consolidation. Carlos Galindo MD Abdomen/Pelvis CT 05/08/17 0000 Signed Impressions: Service Date/Time: Monday, May 08, 2017 23:10 - CONCLUSION: Significant fluid throughout the abdomen and the pelvis with what appears to be a cirrhotic appearing liver and splenomegaly. There is significant small bowel wall thickening throughout the lower abdomen and the upper pelvis without evidence of obstruction Milo Muhammad MD Abdomen X-Ray 05/08/17 0000 Signed Impressions: Service Date/Time: Monday, May 08, 2017 15:30 - CONCLUSION: 1. There is diffuse, mild gaseous distention of the small bowel. No findings to indicate obstruction. Mihir Harry MD Liver Ultrasound 04/15/17 0000 Signed Impressions: Service Date/Time: Saturday, April 15, 2017 09:24 - CONCLUSION: 1. Abnormal appearance of the pancreas with a nonspecific hypoechoic area involving the posterior part of the pancreas along the head and body region. Recommend CT scan of the abdomen with oral and IV contrast further evaluation. 2. Fatty infiltration throughout the liver. 3. There is thickening of the gallbladder wall at 6 mm. This is suggestive of chronic gallbladder disease. 4. Small amount of free fluid adjacent to the liver and spleen in the upper abdomen.. 5. Right-sided pleural effusion. Víctor Rosas MD Head CT 04/12/17 0000 Signed Impressions: Service Date/Time: Wednesday, April 12, 2017 21:30 - CONCLUSION: Pontine encephalomalacia. Left mastoiditis. Casper Alva MD Head Magnetic Resonance Angiography 03/28/17 0000 Signed Impressions: Service Date/Time: March 17:22 - CONCLUSION: Unremarkable examination. Bety Castillo MD Brain MRI 03/28/17 0000 Signed Impressions: Service Date/Time: March 17:22 - CONCLUSION: 1. 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 Small subacute ischemic bilateral thalamic infarcts. 2. There has been no significant change when compared to the prior exam. Yinka Harman MD Lower Extremity Ultrasound 03/25/17 0000 Signed Impressions: Service Date/Time: Saturday, March 25, 2017 22:17 - CONCLUSION: No evidence of DVT. Víctor Rosas MD CT Angiography 03/21/17 0000 Signed Impressions: Service Date/Time: March 00:33 - CONCLUSION: No evidence of pulmonary embolism is identified. Mild atelectasis left lung base. Fluid or phlegm within the trachea. Milo Muhammad MD Abdomen Ultrasound 03/20/17 0000 Signed Impressions: Service Date/Time: Monday, March 20, 2017 11:38 - CONCLUSION: 1. Hepatosplenomegaly without focal lesion. 2. Probable sludge within the lumen of the gallbladder. No intrahepatic duct. Cheo Martínez MD Shoulder X-Ray 03/02/17 1404 Signed Impressions: Service Date/Time: Thursday, March 02, 2017 15:18 - CONCLUSION: No evidence of recent bony injury. Deformity of the lateral left clavicle suggests old healed trauma. Cheo Martínez MD Maxillofacial CT 03/02/17 1342 Signed Impressions: Service Date/Time: Thursday, March 02, 2017 14:52 - CONCLUSION: Negative CT of the facial bones. Cheo Martínez MD Chest CT 03/02/17 1342 Signed Impressions: Service Date/Time: Thursday, March 02, 2017 15:04 - CONCLUSION: 1. Abnormal appearance of the lateral left clavicle suggesting a combination of acute and chronic bony injury. Fracture lucencies without bridging callus is seen the region of the coracoid process. 2. The lungs are clear. No evidence of pneumothorax. 3. Moderate size hiatus hernia. Cheo Martínez MD Cervical Spine CT 03/02/17 1342 Signed Impressions: Service Date/Time: Thursday, March 02, 2017 14:52 - CONCLUSION: Negative CT cervical spine. Cheo Martínez MD Objective Remarks GENERAL: Well-nourished, well-developed male patient lying in bed in no apparent distress. SKIN: Warm and dry. Trach site with dressing in place. Lower extremities bilateral thigh 2 + pitting edema. Scrotum swelling diminished today. HEENT: Normocephalic. No scleral icterus. No injection or drainage. NECK: Supple, trachea midline. No JVD. CARDIOVASCULAR: Regular rate and rhythm. No murmur appreciated. RESPIRATORY: Breath sounds equal bilaterally. No accessory muscle use. GASTROINTESTINAL: Abdomen soft, non-tender, nondistended. PEG tube in place, dressing c/d/i. EXTREMITIES: No cyanosis, or edema. NEUROLOGICAL: Awake, alert, and oriented x 3. Mouthing words, t-collar in place. Procedures 03/02/2017 - arterial line and central line placement. 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 Sandhu is a 61 year old male with a history of alcohol abuse, severe hypernatremia who presented to the ED on 03/02/2017 due to worsening fatigue, weakness that started 13 days prior to this hospitalization. He was found to have significant delirium. He admitted to drinking alcohol as well as taking xanax as well. ED work up indicated Na 99, Bilirubin 8.9, Lactate 9.8, Ammonia 60, CK 7000, troponin 4.9, Creatinine 1.5, bicarb 13. His WBC was 12, Platelets 112, INR 1.9. Meld score 26. He was severely hydrated. Patient was started on isotonic saline in an effort to improve hypovolemia. Patients sodium corrected too rapidly. Patient was treated for distributive shock, alcohol withdrawal and electrolyte imbalances in the ICU. 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 - Continue Keppra 1000 mg every 12 hours. - Lorazepam 1 mg every 12 hours when necessary for seizures. - Sodium is currently within normal range 136. Potassium 3.6. Alcoholic liver disease Alcohol dependence Lower extremity thigh edema - CT abdomen shows liver cirrhosis. - Continue lactulose 30 mL by mouth every 12 hours when necessary - DC rifampin. Monitor neuro status. - No acute concern for alcohol withdrawal at this point. Continue folic acid and thiamine. - Change Torsemide to 10 mg PO BID. Monitor BP. - DC SCDs, patient on heparin. Acute hypoxemic and hypercapnic respiratory failure - Status post tracheostomy on 04/16/2017. Pulmonology following. - Levsin available PRN for increased tracheal secretions. Urinary tract infection - Urine culture is growing Klebsiella pneumoniae and Enterococcus faecalis. - Continue ceftriaxone 1 g daily Diarrhea - C difficile recheck negative. DVT Prophylaxis: Heparin subcutaneous. This note was transcribed by SERGO Zambrano. I, Dr. Sb Gustafson personally performed the history, physical exam, and medical decision making; and confirmed the accuracy of the information in the transcribed note. Authenticated by Dr. Sb Gustafson on 05/24/17 at 00:15. Discharge Planning Last CM note: 05/22/17 Rec'd calls from both [facility] and [facility] and both have declined pat stating tghis pt will be to expensive for what medicaid would reimburse them. If pt condition upgrades facility will take another look at pt. Pt was placed on [facility] today 05/22/17. Pt is going to be a difficult placement due to payor source and level of care at this time. Referral given to [facility] ([phone]) and [facility] ([phone]). [facility], [facility], [facility], [facility], [facility], [facility], and [facility] Pt dtr is special effects person Amie Sandhu who is presently in the [facility] ([phone]) booking number #[phone], also brother Humberto Sandhu ([phone]) Nayeli Devlin May 23, 2017 10:21 Kole Gustafson DO May 24, 2017 00:16
[2017-05-23] MEDS: MORPHINE SULFATE ORAL SOLN 10 MG/0.5 ML SYRINGE G-TUBE PRN ×2 (16:57→22:48)
[2017-05-23] MEDS: cefTRIAXone INJ 1,000 MG in SODIUM CHLORIDE 0.9% INJ 100 ML IV SCH (22:48)
[2017-05-23] MEDS: TORSEMIDE 5 MG TAB PO SCH (22:49)
[2017-05-24] VITALS (9 sets, daily range): BP systolic 101–121; BP diastolic 54–68; PULSE 87–106; RESP 18–20; TEMP 97.8–98.6; O2SAT 92–98
[2017-05-24] MEDS: CHLORHEXIDINE 0.12% (ORAL KIT) 15 ML CUP MT SCH ×2 (08:00→20:00)
[2017-05-24] MEDS: SODIUM CHLORIDE 0.9% FLUSH 10 ML FLUSH IVF SCH (09:00)
[2017-05-24] MEDS: ARTIFICIAL TEARS OPTH SOLN 15 ML BTL EACH EYE SCH ×3 (09:00→17:35)
[2017-05-24] MEDS: MUPIROCIN 2% OINT 1 APPLIC/GM SYR EACH NARE SCH ×2 (09:00→22:27)
--- NOTE | 2017-05-24 09:48 | HHI.PR ---
Subjective Remarks Follow-up for hyponatremia, osmotic demyelination syndrome. Patient seen and examined today. RT at bedside, PMV placed on patient, tolerating well so far. Patient able to speak clearly through valve. Awake, alert and oriented x 3. Denies any new acute complaints. Denies any recent fever, chills, cough, sore throat, shortness of breath, abdominal pain, n/v, diarrhea or dysuria. Spoke to RN at bedside, states that secretions are still thick but continuing to administer levsin. Awaiting speech eval today. Afebrile. Objective Vitals Vital Signs Date Time Temp Pulse Resp B/P Pulse Ox O2 Delivery O2 Flow Rate FiO2 05/24/17 08:00 98.6 87 20 101/61 93 05/24/17 04:00 T-Piece 28 05/24/17 04:00 98.0 91 20 113/63 96 05/24/17 00:00 T-Piece 28 05/24/17 00:00 98.2 87 18 112/64 98 05/23/17 21:57 95 T-piece 6.00 28 05/23/17 20:17 93 05/23/17 20:00 98.2 88 18 116/69 100 05/23/17 20:00 T-Piece 28 05/23/17 18:11 88 05/23/17 16:00 T-Piece 6.00 28 05/23/17 16:00 86 05/23/17 16:00 98.7 95 20 106/61 97 05/23/17 14:00 88 05/23/17 12:00 99.3 94 18 105/61 98 05/23/17 10:22 96 T-piece 6.00 28 I/O 05/23/17 05/23/17 05/23/17 05/24/17 05/24/17 05/24/17 07:00 15:00 23:00 07:00 15:00 23:00 Intake Total 1858 ml 1364 ml 448 ml Output Total 350 ml 350 ml 525 ml Balance 1858 ml -350 ml 1014 ml -77 ml Intake Oral 0 ml 0 ml IV Total 476 ml 100 ml Tube Feeding 1282 ml 1114 ml 398 ml Tube Irrigant 100 ml 150 ml 50 ml Output Urine Total 350 ml 350 ml 525 ml # Bowel Movements 1 1 0 Result Diagram: 05/22/17 0612 05/22/17 0612 Imaging Last Impressions Chest X-Ray 05/16/17 0000 Signed Impressions: Service Date/Time: May 12:56 - CONCLUSION: Improving lung aeration with decreasing air space disease. Persistent left basilar consolidation. Carlos Galindo MD Abdomen/Pelvis CT 05/08/17 0000 Signed Impressions: Service Date/Time: Monday, May 08, 2017 23:10 - CONCLUSION: Significant fluid throughout the abdomen and the pelvis with what appears to be a cirrhotic appearing liver and splenomegaly. There is significant small bowel wall thickening throughout the lower abdomen and the upper pelvis without evidence of obstruction Milo Muhammad MD Abdomen X-Ray 05/08/17 0000 Signed Impressions: Service Date/Time: Monday, May 08, 2017 15:30 - CONCLUSION: 1. There is diffuse, mild gaseous distention of the small bowel. No findings to indicate obstruction. Mihir Harry MD Liver Ultrasound 04/15/17 0000 Signed Impressions: Service Date/Time: Saturday, April 15, 2017 09:24 - CONCLUSION: 1. Abnormal appearance of the pancreas with a nonspecific hypoechoic area involving the posterior part of the pancreas along the head and body region. Recommend CT scan of the abdomen with oral and IV contrast further evaluation. 2. Fatty infiltration throughout the liver. 3. There is thickening of the gallbladder wall at 6 mm. This is suggestive of chronic gallbladder disease. 4. Small amount of free fluid adjacent to the liver and spleen in the upper abdomen.. 5. Right-sided pleural effusion. Víctor Rosas MD Head CT 04/12/17 0000 Signed Impressions: Service Date/Time: Wednesday, April 12, 2017 21:30 - CONCLUSION: Pontine encephalomalacia. Left mastoiditis. Casper Alva MD Head Magnetic Resonance Angiography 03/28/17 0000 Signed Impressions: Service Date/Time: March 17:22 - CONCLUSION: Unremarkable examination. Bety Castillo MD Brain MRI 03/28/17 0000 Signed Impressions: Service Date/Time: March 17:22 - CONCLUSION: 1. 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 Small subacute ischemic bilateral thalamic infarcts. 2. There has been no significant change when compared to the prior exam. Yinka Harman MD Lower Extremity Ultrasound 03/25/17 0000 Signed Impressions: Service Date/Time: Saturday, March 25, 2017 22:17 - CONCLUSION: No evidence of DVT. Víctor Rosas MD CT Angiography 03/21/17 0000 Signed Impressions: Service Date/Time: March 00:33 - CONCLUSION: No evidence of pulmonary embolism is identified. Mild atelectasis left lung base. Fluid or phlegm within the trachea. Milo Muhammad MD Abdomen Ultrasound 03/20/17 0000 Signed Impressions: Service Date/Time: Monday, March 20, 2017 11:38 - CONCLUSION: 1. Hepatosplenomegaly without focal lesion. 2. Probable sludge within the lumen of the gallbladder. No intrahepatic duct. Cheo Martínez MD Shoulder X-Ray 03/02/17 1404 Signed Impressions: Service Date/Time: Thursday, March 02, 2017 15:18 - CONCLUSION: No evidence of recent bony injury. Deformity of the lateral left clavicle suggests old healed trauma. Cheo Martínez MD Maxillofacial CT 03/02/17 1342 Signed Impressions: Service Date/Time: Thursday, March 02, 2017 14:52 - CONCLUSION: Negative CT of the facial bones. Cheo Martínez MD Chest CT 03/02/17 1342 Signed Impressions: Service Date/Time: Thursday, March 02, 2017 15:04 - CONCLUSION: 1. Abnormal appearance of the lateral left clavicle suggesting a combination of acute and chronic bony injury. Fracture lucencies without bridging callus is seen the region of the coracoid process. 2. The lungs are clear. No evidence of pneumothorax. 3. Moderate size hiatus hernia. Cheo Martínez MD Cervical Spine CT 03/02/17 1342 Signed Impressions: Service Date/Time: Thursday, March 02, 2017 14:52 - CONCLUSION: Negative CT cervical spine. Cheo Martínez MD Objective Remarks GENERAL: Well-nourished, well-developed male patient lying in bed in no apparent distress. SKIN: Warm and dry. Trach site with dressing in place. PMV in place. Lower extremities bilateral thigh 2 + pitting edema. Scrotum swelling diminished today. HEENT: Normocephalic. No scleral icterus. No injection or drainage. NECK: Supple, trachea midline. No JVD. CARDIOVASCULAR: Regular rate and rhythm. No murmur appreciated. RESPIRATORY: Breath sounds equal bilaterally. No accessory muscle use. GASTROINTESTINAL: Abdomen soft, non-tender, nondistended. PEG tube in place, dressing c/d/i. TF continued. EXTREMITIES: No cyanosis, or edema. NEUROLOGICAL: Awake, alert, and oriented x 3. Normal speech, PMV in place. Procedures 03/02/2017 - arterial line and central line placement. 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 Sandhu is a 61 year old male with a history of alcohol abuse, severe hypernatremia who presented to the ED on 03/02/2017 due to worsening fatigue, weakness that started 13 days prior to this hospitalization. He was found to have significant delirium. He admitted to drinking alcohol as well as taking xanax as well. ED work up indicated Na 99, Bilirubin 8.9, Lactate 9.8, Ammonia 60, CK 7000, troponin 4.9, Creatinine 1.5, bicarb 13. His WBC was 12, Platelets 112, INR 1.9. Meld score 26. He was severely hydrated. Patient was started on isotonic saline in an effort to improve hypovolemia. Patients sodium corrected too rapidly. Patient was treated for distributive shock, alcohol withdrawal and electrolyte imbalances in the ICU. 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 - Continue Keppra 1000 mg every 12 hours. - Lorazepam 1 mg every 12 hours when necessary for seizures. - Sodium is currently within normal range 136. Potassium 3.6. Alcoholic liver disease Alcohol dependence Lower extremity thigh edema - CT abdomen shows liver cirrhosis. - Continue lactulose 30 mL by mouth every 12 hours when necessary - DC rifampin. Monitor neuro status. - No acute concern for alcohol withdrawal at this point. Continue folic acid and thiamine. - Change Torsemide to 10 mg PO BID. Monitor BP. - DC SCDs, patient on heparin. Lower thigh edema much improved today with increase in torsemide. Acute hypoxemic and hypercapnic respiratory failure - Status post tracheostomy on 04/16/2017. Pulmonology following. - Levsin available PRN for increased tracheal secretions. Urinary tract infection - Urine culture is growing Klebsiella pneumoniae and Enterococcus faecalis. - Continue ceftriaxone 1 g daily Diarrhea - C difficile recheck negative. DVT Prophylaxis: Heparin subcutaneous. Full code. Discharge Planning Last CM note: 05/22/17 Rec'd calls from both [facility] and [facility] and both have declined pat stating tghis pt will be to expensive for what medicaid would reimburse them. If pt condition upgrades facility will take another look at pt. Pt was placed on [facility] [place] today 05/22/17. Pt is going to be a difficult placement due to payor source and level of care at this time. Referral given to [facility] ([phone]) and [facility] ([phone]). [facility], [facility], [facility], [facility], [facility], [facility], [place], and [facility] Pt dtr is contact lens cutter Amie Sandhu who is presently in the [facility] ([phone]) booking number #[phone], also brother Humberto Sandhu ([phone]) Nayeli Devlin May 24, 2017 09:48
[2017-05-24] MEDS: levETIRAcetam 500 MG/5 ML UDC NG SCH ×2 (10:25→22:26)
[2017-05-24] MEDS: FOLIC ACID 1 MG TAB PEG SCH (10:26)
[2017-05-24] MEDS: LACTOBACILLUS ACIDOPHILUS TAB PO SCH ×3 (10:26→17:35)
[2017-05-24] MEDS: THIAMINE HCL 100 MG TAB PO SCH (10:26)
[2017-05-24] MEDS: NYSTATIN SUSP 500,000 U/5 ML CUP SWISH-SWAL SCH ×4 (10:26→22:26)
[2017-05-24] MEDS: LANSOPRAZOLE SOLUTAB 30 MG TAB NG SCH (10:26)
[2017-05-24] MEDS: TORSEMIDE 5 MG TAB PO SCH ×2 (10:26→22:26)
[2017-05-24] MEDS: HYOSCYAMINE SOLN 0.125 MG/ML 15 ML BTL PO PRN ×4 (10:27→22:28)
[2017-05-24] MEDS: HEPARIN SODIUM - SQ 10,000 UNITS/ML VIAL SQ SCH ×2 (10:27→22:26)
[2017-05-24] MEDS: NYSTATIN 100,000 U/GM PWD 15 GM BTL TOPICAL SCH ×2 (10:28→21:00)
[2017-05-24] MEDS: SODIUM HYPOCHLORITE 0.125% 500 ML BTL TOPICAL SCH (10:28)
[2017-05-24] MEDS: SODIUM CHLORIDE 0.9% FLUSH 10 ML FLUSH IV FLUSH SCH ×2 (10:30→22:27)
--- NOTE | 2017-05-24 14:50 | PD.WCN.NOT ---
Wound Consult Description: Late entry for 05/24/2017 at 12pm:Patient seen earlier on [address] for follow up of sacral unstageable pressure injury and unstageable pressure injury to coccyx Also received consult for wound under trach. Removed hydrocolloid dressing in place under trach to reveal stage 3 device related pressure injury noted with ~ 50% pink tissue and ~50% pale red hypergranulation tissue. Wound measures 2cm x 1 cm x ~+0.1 above skin.Wound has minimal sero-sanguinous drainage without odor.periwound noted with blanchable erythema, moisture and adhesive related irritation. Cleansed wound with normal saline and applied optilock dressing in place.Secured with 1 piece of paper tape placed across dressing. Skin prep applied to periwound before applying tape. Patient turned to R side with assistance of Kirsten ventura. Removed bordered gauze and 4x4 gauze pads in place to reveal Stage 4 pressure injury to medial Coccyx. Cleansed wound with wound cleanser.wound measures 4.8 x 4 x 1.9 Wound bed noted with 20% yellow slough that is loosely adherent, 40% red granulation tissue, 10% facia, 10% bone and 10% muscle is visualized.Periwound is noted with some partial thickness skin loss and maceration between 9 and 11 o 'clock Applied 2 Dakin's moistened 2x2s loosely packed into wound bed and covered with bordered gauze. skin prep applied to periwound before applying adhesive dressing. Communicated with: TIERRA ventura and Doctor Kole Gustafson Recommendation: Recommend to continue dressings as ordered for medial coccyx wound. Please cleansed wound just below trac to anterior neck with normal saline. Apply optifoam basic (non-adhesive foam dressing) over wound bed and secure snuggly with paper tape. Please apply skin prep before applying adhesives to skin. Esperanza Romano [facility] May 24, 2017 14:50
[2017-05-24] MEDS: MORPHINE SULFATE ORAL SOLN 10 MG/0.5 ML SYRINGE G-TUBE PRN ×2 (18:26→22:28)
[2017-05-24] MEDS: RESP: ALBUTEROL 2.5 MG/IPRATROPIUM 0.5 MG NEB (SCH) INH (19:32)
[2017-05-24] MEDS: cefTRIAXone INJ 1,000 MG in SODIUM CHLORIDE 0.9% INJ 100 ML IV SCH (22:26)
[2017-05-25] VITALS (11 sets, daily range): BP systolic 96–123; BP diastolic 56–76; PULSE 9–108; RESP 18–20; TEMP 97.8–99.1; O2SAT 93–98
[2017-05-25] MEDS: ONDANSETRON HCL 4 MG/2 ML VIAL IV PRN (05:17)
[2017-05-25] MEDS: MORPHINE SULFATE ORAL SOLN 10 MG/0.5 ML SYRINGE G-TUBE PRN ×3 (05:18→22:55)
[2017-05-25] MEDS: RESP: ALBUTEROL 2.5 MG/IPRATROPIUM 0.5 MG NEB (SCH) INH ×3 (08:50→19:15)
[2017-05-25] MEDS: CHLORHEXIDINE 0.12% (ORAL KIT) 15 ML CUP MT SCH ×2 (10:54→20:00)
[2017-05-25] MEDS: ARTIFICIAL TEARS OPTH SOLN 15 ML BTL EACH EYE SCH ×3 (10:54→18:38)
[2017-05-25] MEDS: MUPIROCIN 2% OINT 1 APPLIC/GM SYR EACH NARE SCH ×2 (10:54→22:22)
[2017-05-25] MEDS: FOLIC ACID 1 MG TAB PEG SCH (10:55)
[2017-05-25] MEDS: levETIRAcetam 500 MG/5 ML UDC NG SCH ×2 (10:55→22:20)
[2017-05-25] MEDS: LANSOPRAZOLE SOLUTAB 30 MG TAB NG SCH (10:55)
[2017-05-25] MEDS: LACTOBACILLUS ACIDOPHILUS TAB PO SCH ×3 (10:56→18:38)
[2017-05-25] MEDS: THIAMINE HCL 100 MG TAB PO SCH (10:56)
[2017-05-25] MEDS: HEPARIN SODIUM - SQ 10,000 UNITS/ML VIAL SQ SCH ×2 (10:56→22:21)
[2017-05-25] MEDS: TORSEMIDE 5 MG TAB PO SCH ×2 (10:56→22:21)
[2017-05-25] MEDS: NYSTATIN SUSP 500,000 U/5 ML CUP SWISH-SWAL SCH ×4 (10:57→22:22)
[2017-05-25] MEDS: NYSTATIN 100,000 U/GM PWD 15 GM BTL TOPICAL SCH ×2 (10:57→22:24)
[2017-05-25] MEDS: SODIUM HYPOCHLORITE 0.125% 500 ML BTL TOPICAL SCH (10:57)
--- NOTE | 2017-05-25 15:38 | HHI.PR ---
Subjective Remarks Follow-up for hyponatremia, osmotic demyelination syndrome. Patient seen and examined today. Lying in bed on t-piece, awake, alert, mouthing words. Oriented. Denies any new acute complaints. Objective Vitals Vital Signs Date Time Temp Pulse Resp B/P Pulse Ox O2 Delivery O2 Flow Rate FiO2 05/25/17 15:29 9 05/25/17 15:00 93 T-Piece 05/25/17 12:10 99.1 83 20 96/63 93 05/25/17 08:50 97 T-piece 05/25/17 08:10 97.8 95 20 104/59 98 05/25/17 04:00 T-Piece 05/25/17 04:00 98.1 93 18 118/66 98 05/25/17 00:00 98.3 108 20 123/76 95 05/25/17 00:00 T-Piece 05/24/17 20:55 T-Piece 05/24/17 20:22 104 05/24/17 20:00 Nasal Cannula 2.00 05/24/17 20:00 98.3 106 20 118/68 92 05/24/17 19:32 96 Nasal Cannula 2.00 05/24/17 16:00 97.8 95 20 111/64 96 05/24/17 16:00 Nasal Cannula 2.00 I/O 05/24/17 05/24/17 05/24/17 05/25/17 05/25/17 05/25/17 07:00 15:00 23:00 07:00 15:00 23:00 Intake Total 448 ml 586 ml 398 ml Output Total 525 ml 1150 ml 250 ml 575 ml Balance -77 ml -1150 ml 336 ml -177 ml Intake Oral 0 ml 0 ml 0 ml IV Total 100 ml Tube Feeding 398 ml 436 ml 348 ml Tube Irrigant 50 ml 50 ml 50 ml Output Urine Total 525 ml 1150 ml 250 ml 575 ml # Bowel Movements 0 1 0 1 Result Diagram: 05/22/1712 05/22/17611 Imaging Last Impressions Chest X-Ray 05/16/17 0000 Signed Impressions: Service Date/Time: May 12:56 - CONCLUSION: Improving lung aeration with decreasing air space disease. Persistent left basilar consolidation. Carlos Galindo MD Abdomen/Pelvis CT 05/08/17 Signed Impressions: Service Date/Time: Monday, May 08, 2017 23:10 - CONCLUSION: Significant fluid throughout the abdomen and the pelvis with what appears to be a cirrhotic appearing liver and splenomegaly. There is significant small bowel wall thickening throughout the lower abdomen and the upper pelvis without evidence of obstruction Milo Muhammad MD Abdomen X-Ray 05/08/17 Signed Impressions: Service Date/Time: Monday, May 08, 2017 15:30 - CONCLUSION: 1. There is diffuse, mild gaseous distention of the small bowel. No findings to indicate obstruction. Mihir Harry MD Liver Ultrasound 04/15/17 Signed Impressions: Service Date/Time: Saturday, April 15, 2017 09:24 - CONCLUSION: 1. Abnormal appearance of the pancreas with a nonspecific hypoechoic area involving the posterior part of the pancreas along the head and body region. Recommend CT scan of the abdomen with oral and IV contrast further evaluation. 2. Fatty infiltration throughout the liver. 3. There is thickening of the gallbladder wall at 6 mm. This is suggestive of chronic gallbladder disease. 4. Small amount of free fluid adjacent to the liver and spleen in the upper abdomen.. 5. Right-sided pleural effusion. Víctor Rosas MD Head CT 04/12/17 Signed Impressions: Service Date/Time: Wednesday, April 12, 2017 21:30 - CONCLUSION: Pontine encephalomalacia. Left mastoiditis. Casper Alva MD Head Magnetic Resonance Angiography 03/28/17 Signed Impressions: Service Date/Time: March 17:22 - CONCLUSION: Unremarkable examination. Bety Castillo MD Brain MRI 03/28/17 0000 Signed Impressions: Service Date/Time: March 17:22 - CONCLUSION: 1. 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 Small subacute ischemic bilateral thalamic infarcts. 2. There has been no significant change when compared to the prior exam. Yinka Harman MD Lower Extremity Ultrasound 03/25/17 0000 Signed Impressions: Service Date/Time: Saturday, March 25, 2017 22:17 - CONCLUSION: No evidence of DVT. Víctor Rosas MD CT Angiography 03/21/17 0000 Signed Impressions: Service Date/Time: March 00:33 - CONCLUSION: No evidence of pulmonary embolism is identified. Mild atelectasis left lung base. Fluid or phlegm within the trachea. Milo Muhammad MD Abdomen Ultrasound 03/20/17 0000 Signed Impressions: Service Date/Time: Monday, March 20, 2017 11:38 - CONCLUSION: 1. Hepatosplenomegaly without focal lesion. 2. Probable sludge within the lumen of the gallbladder. No intrahepatic duct. Cheo Martínez MD Shoulder X-Ray 03/02/17 1404 Signed Impressions: Service Date/Time: Thursday, March 02, 2017 15:18 - CONCLUSION: No evidence of recent bony injury. Deformity of the lateral left clavicle suggests old healed trauma. Cheo Martínez MD Maxillofacial CT 03/02/17 1342 Signed Impressions: Service Date/Time: Thursday, March 02, 2017 14:52 - CONCLUSION: Negative CT of the facial bones. Cheo Martínez MD Chest CT 03/02/17 1342 Signed Impressions: Service Date/Time: Thursday, March 02, 2017 15:04 - CONCLUSION: 1. Abnormal appearance of the lateral left clavicle suggesting a combination of acute and chronic bony injury. Fracture lucencies without bridging callus is seen the region of the coracoid process. 2. The lungs are clear. No evidence of pneumothorax. 3. Moderate size hiatus hernia. Cheo Martínez MD Cervical Spine CT 03/02/17 1342 Signed Impressions: Service Date/Time: Thursday, March 02, 2017 14:52 - CONCLUSION: Negative CT cervical spine. Cheo Martínez MD Objective Remarks GENERAL: Well-nourished, well-developed male patient lying in bed in no apparent distress. SKIN: Warm and dry. Trach site with dressing in place. T collar in place Lower extremities bilateral thigh 1 + pitting edema. Scrotum swelling diminished today. HEENT: Normocephalic. No scleral icterus. No injection or drainage. NECK: Supple, trachea midline. No JVD. CARDIOVASCULAR: Regular rate and rhythm. No murmur appreciated. RESPIRATORY: Breath sounds equal bilaterally. No accessory muscle use. GASTROINTESTINAL: Abdomen soft, non-tender, nondistended. PEG tube in place, dressing c/d/i. TF continued. EXTREMITIES: No cyanosis, or edema. NEUROLOGICAL: Awake, alert, and oriented x 3 Procedures 03/02/2017 - arterial line and central line placement. 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 Sandhu is a 61 year old male with a history of alcohol abuse, severe hypernatremia who presented to the ED on 03/02/2017 due to worsening fatigue, weakness that started 13 days prior to this hospitalization. He was found to have significant delirium. He admitted to drinking alcohol as well as taking xanax as well. ED work up indicated Na 99, Bilirubin 8.9, Lactate 9.8, Ammonia 60, CK 7000, troponin 4.9, Creatinine 1.5, bicarb 13. His WBC was 12, Platelets 112, INR 1.9. Meld score 26. He was severely hydrated. Patient was started on isotonic saline in an effort to improve hypovolemia. Patients sodium corrected too rapidly. Patient was treated for distributive shock, alcohol withdrawal and electrolyte imbalances in the ICU. 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 - Continue Keppra 1000 mg every 12 hours. - Lorazepam 1 mg every 12 hours when necessary for seizures. - Sodium is currently within normal range 136. Potassium 3.6. - Monitor UO, electrolytes and intake closely while on diuretics. Alcoholic liver disease Alcohol dependence Lower extremity thigh edema - CT abdomen shows liver cirrhosis. - Continue lactulose 30 mL by mouth every 12 hours when necessary - DCd rifaximin. Monitor neuro status. - No acute concern for alcohol withdrawal at this point. Continue folic acid and thiamine. - Torsemide to 10 mg PO BID. Monitor BP. - Lower thigh edema much improved today Acute hypoxemic and hypercapnic respiratory failure - Status post tracheostomy on 04/16/2017. Pulmonology following. - Levsin available PRN for increased tracheal secretions. Urinary tract infection - Urine culture + Klebsiella pneumoniae and Enterococcus faecalis. - DCd ceftriaxone, course completed. Diarrhea, resolved. - C difficile recheck negative. DVT Prophylaxis: Heparin subcutaneous. Full code. Discharge Planning Last CM note: 05/22/17 Rec'd calls from both [facility] and [facility] and both have declined pat stating tghis pt will be to expensive for what medicaid would reimburse them. If pt condition upgrades facility will take another look at pt. Pt was placed on [facility] [place] today 05/22/17. Pt is going to be a difficult placement due to payor source and level of care at this time. Referral given to [facility] ([phone]) and [facility] ([phone]). 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
[2017-05-25] MEDS: HYOSCYAMINE SOLN 0.125 MG/ML 15 ML BTL PO PRN (22:24)
[2017-05-26] VITALS (11 sets, daily range): BP systolic 97–112; BP diastolic 55–62; PULSE 80–95; RESP 16–18; TEMP 98.2–99; O2SAT 91–98
[2017-05-26] MEDS: MORPHINE SULFATE ORAL SOLN 10 MG/0.5 ML SYRINGE G-TUBE PRN ×2 (04:15→21:18)
[2017-05-26] MEDS: HYOSCYAMINE SOLN 0.125 MG/ML 15 ML BTL PO PRN ×2 (04:15→21:18)
[2017-05-26 09:01] LABS: AUTOMATED NEUTROPHIL # 5.4 TH/MM3 (1.8-7.7); BASOPHIL % 0.6 % (0.0-2.0); EOSINOPHIL # 0.3 TH/MM3 (0-0.4); EOSINOPHIL % 3.3 % (0.0-4.0); HEMATOCRIT 23.7 % (39.0-51.0); HEMO FLAGS DIFF FINAL; LYMPH % 18.5 % (9.0-44.0); LYMPHOCYTE # 1.4 TH/MM3 (1.0-4.8); MEAN CELL VOLUME 95.8 FL (80.0-100.0); MEAN CORPUSCULAR HEMOGLOBIN 32.8 PG (27.0-34.0); MEAN CORPUSCULAR HGB CONC 34.3 % (32.0-36.0); MONO % 8.3 % (0.0-8.0); NEUT % 69.3 % (16.0-70.0); PLATELET COUNT 180 TH/MM3 (150-450); RED BLOOD COUNT 2.47 MIL/MM3 (4.50-5.90); RED CELL DISTRIBUTION WIDTH 13.3 % (11.6-17.2); WHITE BLOOD COUNT 7.8 TH/MM3 (4.0-11.0)
[2017-05-26 09:22] LABS: BICARBONATE 30.5 MEQ/L (21.0-32.0); POTASSIUM 3.9 MEQ/L (3.5-5.1)
[2017-05-26] MEDS: RESP: ALBUTEROL 2.5 MG/IPRATROPIUM 0.5 MG NEB (SCH) INH ×3 (09:35→20:16)
[2017-05-26] MEDS: ARTIFICIAL TEARS OPTH SOLN 15 ML BTL EACH EYE SCH ×3 (09:53→18:00)
[2017-05-26] MEDS: CHLORHEXIDINE 0.12% (ORAL KIT) 15 ML CUP MT SCH ×2 (09:53→20:00)
[2017-05-26] MEDS: levETIRAcetam 500 MG/5 ML UDC NG SCH ×2 (09:54→21:16)
[2017-05-26] MEDS: TORSEMIDE 5 MG TAB PO SCH ×2 (09:54→21:17)
[2017-05-26] MEDS: MUPIROCIN 2% OINT 1 APPLIC/GM SYR EACH NARE SCH ×2 (09:54→21:14)
[2017-05-26] MEDS: LANSOPRAZOLE SOLUTAB 30 MG TAB NG SCH (09:54)
[2017-05-26] MEDS: FOLIC ACID 1 MG TAB PEG SCH (09:54)
[2017-05-26] MEDS: NYSTATIN 100,000 U/GM PWD 15 GM BTL TOPICAL SCH ×2 (09:55→21:19)
[2017-05-26] MEDS: NYSTATIN SUSP 500,000 U/5 ML CUP SWISH-SWAL SCH (09:55)
[2017-05-26] MEDS: HEPARIN SODIUM - SQ 10,000 UNITS/ML VIAL SQ SCH ×2 (09:55→21:17)
[2017-05-26] MEDS: THIAMINE HCL 100 MG TAB PO SCH (09:55)
[2017-05-26] MEDS: SODIUM HYPOCHLORITE 0.125% 500 ML BTL TOPICAL SCH (09:55)
[2017-05-26] MEDS: LACTOBACILLUS ACIDOPHILUS TAB PO SCH ×3 (09:55→18:06)
--- NOTE | 2017-05-26 11:31 | HHI.PR ---
Subjective Remarks Written by Nayeli Devlin, acting as scribe for Dr. Baum on 05/26/17 at 1131. Follow-up for hyponatremia, osmotic demyelination syndrome. Patient seen and examined today, lying in bed with PMV in place. Resting comfortably. Denies any new acute complaint overnight. Denies shortness of breath, cough, ab pain, nausea or vomiting. Objective Vitals Vital Signs Date Time Temp Pulse Resp B/P Pulse Ox O2 Delivery O2 Flow Rate FiO2 05/26/17 09:37 96 T-piece 28 05/26/17 08:00 98.5 80 18 101/55 94 05/26/17 04:00 98.6 87 18 100/57 96 05/26/17 00:00 98.3 90 18 104/58 98 05/25/17 20:30 T-Piece 6.00 28 05/25/17 20:13 90 05/25/17 20:00 98.7 90 18 112/56 96 05/25/17 19:15 96 T-piece 6.00 28 05/25/17 16:10 98.8 91 19 105/57 96 05/25/17 16:06 9 05/25/17 16:00 93 T-Piece 28 05/25/17 15:29 9 05/25/17 15:00 93 T-Piece 28 05/25/17 12:10 99.1 83 20 96/63 93 I/O 05/25/17 05/25/17 05/25/17 05/26/17 05/26/17 05/26/17 07:00 15:00 23:00 07:00 15:00 23:00 Intake Total 398 ml 676 ml 0 ml Output Total 575 ml 1000 ml 550 ml 600 ml Balance -177 ml -1000 ml 126 ml -600 ml Intake Oral 0 ml 0 ml Tube Feeding 348 ml 476 ml Tube Irrigant 50 ml 200 ml Output Urine Total 575 ml 1000 ml 550 ml 600 ml # Bowel Movements 1 1 0 0 Result Diagram: 05/26/1725 05/26/17 0825 Imaging Last Impressions Chest X-Ray 05/16/17 0000 Signed Impressions: Service Date/Time: May 12:56 - CONCLUSION: Improving lung aeration with decreasing air space disease. Persistent left basilar consolidation. Carlos Galindo MD Abdomen/Pelvis CT 05/08/17 Signed Impressions: Service Date/Time: Monday, May 08, 2017 23:10 - CONCLUSION: Significant fluid throughout the abdomen and the pelvis with what appears to be a cirrhotic appearing liver and splenomegaly. There is significant small bowel wall thickening throughout the lower abdomen and the upper pelvis without evidence of obstruction Milo Muhammad MD Abdomen X-Ray 05/08/17 Signed Impressions: Service Date/Time: Monday, May 08, 2017 15:30 - CONCLUSION: 1. There is diffuse, mild gaseous distention of the small bowel. No findings to indicate obstruction. Mihir Harry MD Liver Ultrasound 04/15/17 Signed Impressions: Service Date/Time: Saturday, April 15, 2017 09:24 - CONCLUSION: 1. Abnormal appearance of the pancreas with a nonspecific hypoechoic area involving the posterior part of the pancreas along the head and body region. Recommend CT scan of the abdomen with oral and IV contrast further evaluation. 2. Fatty infiltration throughout the liver. 3. There is thickening of the gallbladder wall at 6 mm. This is suggestive of chronic gallbladder disease. 4. Small amount of free fluid adjacent to the liver and spleen in the upper abdomen.. 5. Right-sided pleural effusion. Víctor Rosas MD Head CT 04/12/17 Signed Impressions: Service Date/Time: Wednesday, April 12, 2017 21:30 - CONCLUSION: Pontine encephalomalacia. Left mastoiditis. Casper Alva MD Head Magnetic Resonance Angiography 03/28/17 Signed Impressions: Service Date/Time: March 17:22 - CONCLUSION: Unremarkable examination. Bety Castillo MD Brain MRI 03/28/17 Signed Impressions: Service Date/Time: March 17:22 - CONCLUSION: 1. 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 Small subacute ischemic bilateral thalamic infarcts. 2. There has been no significant change when compared to the prior exam. Yinka Harman MD Lower Extremity Ultrasound 03/25/17 0000 Signed Impressions: Service Date/Time: Saturday, March 25, 2017 22:17 - CONCLUSION: No evidence of DVT. Víctor Rosas MD CT Angiography 03/21/17 0000 Signed Impressions: Service Date/Time: March 00:33 - CONCLUSION: No evidence of pulmonary embolism is identified. Mild atelectasis left lung base. Fluid or phlegm within the trachea. Milo Muhammad MD Abdomen Ultrasound 03/20/17 0000 Signed Impressions: Service Date/Time: Monday, March 20, 2017 11:38 - CONCLUSION: 1. Hepatosplenomegaly without focal lesion. 2. Probable sludge within the lumen of the gallbladder. No intrahepatic duct. Cheo Martínez MD Shoulder X-Ray 03/02/17 1404 Signed Impressions: Service Date/Time: Thursday, March 02, 2017 15:18 - CONCLUSION: No evidence of recent bony injury. Deformity of the lateral left clavicle suggests old healed trauma. Cheo Martínez MD Maxillofacial CT 03/02/17 1342 Signed Impressions: Service Date/Time: Thursday, March 02, 2017 14:52 - CONCLUSION: Negative CT of the facial bones. Cheo Martínez MD Chest CT 03/02/17 1342 Signed Impressions: Service Date/Time: Thursday, March 02, 2017 15:04 - CONCLUSION: 1. Abnormal appearance of the lateral left clavicle suggesting a combination of acute and chronic bony injury. Fracture lucencies without bridging callus is seen the region of the coracoid process. 2. The lungs are clear. No evidence of pneumothorax. 3. Moderate size hiatus hernia. Cheo Martínez MD Cervical Spine CT 03/02/17 1342 Signed Impressions: Service Date/Time: Thursday, March 02, 2017 14:52 - CONCLUSION: Negative CT cervical spine. Cheo Martínez MD Objective Remarks GENERAL: Well-nourished, well-developed male patient lying in bed in no apparent distress on PMV with supplemental O2, tolerating well. SKIN: Warm and dry. Trach site with dressing in place. Bilateral lower extremity edema much improved today, 1+ pitting edema. Scrotum swelling significantly diminished. HEENT: Normocephalic. No scleral icterus. No injection or drainage. NECK: Supple, trachea midline. No JVD. CARDIOVASCULAR: Regular rate and rhythm. No murmur appreciated. RESPIRATORY: Breath sounds equal bilaterally. Distant breath sounds noted throughout with crackles in bilateral base. No accessory muscle use. GASTROINTESTINAL: Abdomen soft, non-tender, nondistended. PEG tube in place, dressing c/d/i. TF continued. EXTREMITIES: No cyanosis, or edema. NEUROLOGICAL: Awake, alert, and oriented x 3 Procedures 03/02/2017 - arterial line and central line placement. 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 Sandhu is a 61 year old male with a history of alcohol abuse, severe hypernatremia who presented to the ED on 03/02/2017 due to worsening fatigue, weakness that started 13 days prior to this hospitalization. He was found to have significant delirium. He admitted to drinking alcohol as well as taking xanax as well. ED work up indicated Na 99, Bilirubin 8.9, Lactate 9.8, Ammonia 60, CK 7000, troponin 4.9, Creatinine 1.5, bicarb 13. His WBC was 12, Platelets 112, INR 1.9. Meld score 26. He was severely hydrated. Patient was started on isotonic saline in an effort to improve hypovolemia. Patients sodium corrected too rapidly. Patient was treated for distributive shock, alcohol withdrawal and electrolyte imbalances in the ICU. 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 - Continue Keppra 1000 mg every 12 hours. - Lorazepam 1 mg every 12 hours PO for seizures. - BMP today reviewed by me, Na 136, K 3.9. Stable. BP stable today. Alcoholic liver disease Alcohol dependence Lower extremity thigh edema, improving - CT abdomen shows liver cirrhosis. - DCd rifaximin. Monitor neuro status. - Continue folic acid and thiamine. - Lower thigh edema assessed today and improving. - Will DC Demadex after last dose tonight. Start Furosemide 40 mg PO daily starting tomorrow. - Monitor UO, electrolytes and intake closely while on diuretics. Acute hypoxemic and hypercapnic respiratory failure - Status post tracheostomy on 04/16/2017. Pulmonology following. - Levsin available PRN for increased tracheal secretions. - Continue Duonebs scheduled. Urinary tract infection, resolved. - Urine culture + Klebsiella pneumoniae and Enterococcus faecalis. - DCd ceftriaxone, course completed. Diarrhea, resolved: C difficile recheck negative. Chronic pain: Continue Roxanol 5 mg PO q4h PRN per pain scale. GI prophylaxis: Prevacid DVT Prophylaxis: Heparin subcutaneous. Full code. Discharge Planning Last CM note: 05/22/17 [facility] and both have declined pat stating tghis pt will be to expensive for what medicaid would reimburse them. If pt condition upgrades facility will take another look at pt. Pt was placed on Passy [place] today 05/22/17. Pt is going to be a difficult placement due to payor source and level of care at this time. Referral given to [facility] ([phone]) and [facility] ([phone]). [facility], [facility], 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 I, Dr. Andres Baum personally performed the history, physical exam, and medical decision making; and confirmed the accuracy of the information in the transcribed note. Authenticated by Dr. Andres Baum on 05/26/17 at 15:20. Nayeli Devlin May 26, 2017 11:31 Andres Baum MD May 26, 2017 15:21
[2017-05-26 14:57] LABS: BLOOD GAS BASE EXCESS 9.4 mmol/L (-2-2); BLOOD GAS HCO3 33 mmol/L (22-26); BLOOD GAS METHEMOGLOBIN 0.8 % (0-2); BLOOD GAS O2 HGB SATURATION 91 % (90-100); BLOOD GAS OXYGEN CONTENT 10.3 Vol % (12.0-20.0); BLOOD GAS PCO2 42 mmHg (38-42); BLOOD GAS PO2 65 mmHg (61-120); TEMP CORR TO 98.6
[2017-05-26 14:58] LABS: CRITICAL VALUE YES; OXYGEN DEVICE ROOM AIR
[2017-05-26 14:59] LABS: DRAW SITE RT RADIAL; FIO2 21 %; NUMBER OF ARTERIAL PUNCTURES 1; STAT NO; ULNAR PULSE PRESENT
[2017-05-26] MEDS: SODIUM CHLORIDE 0.9% FLUSH 10 ML FLUSH IVF PRN (21:19)
[2017-05-27] VITALS (10 sets, daily range): BP systolic 100–116; BP diastolic 56–69; PULSE 82–94; RESP 18–20; TEMP 98–98.7; O2SAT 96–100
[2017-05-27] MEDS: MORPHINE SULFATE ORAL SOLN 10 MG/0.5 ML SYRINGE G-TUBE PRN ×2 (01:24→21:56)
[2017-05-27] MEDS: HYOSCYAMINE SOLN 0.125 MG/ML 15 ML BTL PO PRN ×3 (01:24→18:15)
[2017-05-27] MEDS: CHLORHEXIDINE 0.12% (ORAL KIT) 15 ML CUP MT SCH ×2 (08:00→20:00)
[2017-05-27] MEDS: RESP: ALBUTEROL 2.5 MG/IPRATROPIUM 0.5 MG NEB (SCH) INH ×3 (08:30→20:27)
[2017-05-27] MEDS: levETIRAcetam 500 MG/5 ML UDC NG SCH ×2 (11:51→21:55)
[2017-05-27] MEDS: LANSOPRAZOLE SOLUTAB 30 MG TAB NG SCH (11:51)
[2017-05-27] MEDS: THIAMINE HCL 100 MG TAB PO SCH (11:52)
[2017-05-27] MEDS: FOLIC ACID 1 MG TAB PEG SCH (11:52)
[2017-05-27] MEDS: FUROSEMIDE 40 MG TAB PO SCH (11:52)
[2017-05-27] MEDS: LACTOBACILLUS ACIDOPHILUS TAB PO SCH ×3 (11:52→18:12)
[2017-05-27] MEDS: NYSTATIN 100,000 U/GM PWD 15 GM BTL TOPICAL SCH ×2 (11:53→21:00)
[2017-05-27] MEDS: MUPIROCIN 2% OINT 1 APPLIC/GM SYR EACH NARE SCH ×2 (11:53→21:55)
[2017-05-27] MEDS: ARTIFICIAL TEARS OPTH SOLN 15 ML BTL EACH EYE SCH ×3 (11:53→18:13)
[2017-05-27] MEDS: HEPARIN SODIUM - SQ 10,000 UNITS/ML VIAL SQ SCH ×2 (11:55→21:56)
--- NOTE | 2017-05-27 14:37 | HHI.PR ---
Subjective Remarks Follow-up for hyponatremia, osmotic demyelination syndrome. Patient seen and examined today, lying in bed with PMV in place. Resting comfortably. Denies any new acute complaint overnight. Pt reported secretions are less with medication recently prescribed (Levsin) Pt questioned when he could resume eating "normal food." Denies cough, shortness of breath, pain, NVD,poor sleep. Per pt's RN (Mara) no new issues developed over night or since start of shift. Objective Vitals Vital Signs Date Time Temp Pulse Resp B/P Pulse Ox O2 Delivery O2 Flow Rate FiO2 05/27/17 08:30 100 T-piece 28 05/27/17 08:00 98.7 83 18 101/59 100 05/27/17 04:00 98.1 88 18 112/63 96 05/27/17 00:00 98.0 82 18 104/61 97 05/26/17 20:22 93 05/26/17 20:15 T-Piece 6.00 28 05/26/17 20:00 98.2 91 16 108/59 96 05/26/17 18:03 90 05/26/17 17:25 98 T-piece 28 05/26/17 16:00 98 T-Piece 28 05/26/17 16:00 98.4 95 18 112/62 95 05/26/17 15:27 98 T-Piece 28 05/26/17 15:19 91 21 I/O 05/26/17 05/26/17 05/26/17 05/27/17 05/27/17 05/27/17 07:00 15:00 23:00 07:00 15:00 23:00 Intake Total 0 ml 680 ml 0 ml Output Total 600 ml 250 ml 650 ml Balance -600 ml 430 ml -650 ml Intake Oral 0 ml 0 ml Tube Feeding 480 ml Other 200 ml Output Urine Total 600 ml 250 ml 650 ml # Bowel Movements 0 0 0 Result Diagram: 05/26/1782405/26/17824 Imaging Last Impressions Chest X-Ray 05/16/17 0000 Signed Impressions: Service Date/Time: May 12:56 - CONCLUSION: Improving lung aeration with decreasing air space disease. Persistent left basilar consolidation. Carlos Galindo MD Abdomen/Pelvis CT 05/08/17 0000 Signed Impressions: Service Date/Time: Monday, May 08, 2017 23:10 - CONCLUSION: Significant fluid throughout the abdomen and the pelvis with what appears to be a cirrhotic appearing liver and splenomegaly. There is significant small bowel wall thickening throughout the lower abdomen and the upper pelvis without evidence of obstruction Milo Muhammad MD Abdomen X-Ray 05/08/17 0000 Signed Impressions: Service Date/Time: Monday, May 08, 2017 15:30 - CONCLUSION: 1. There is diffuse, mild gaseous distention of the small bowel. No findings to indicate obstruction. Mihir Harry MD Liver Ultrasound 04/15/17 0000 Signed Impressions: Service Date/Time: Saturday, April 15, 2017 09:24 - CONCLUSION: 1. Abnormal appearance of the pancreas with a nonspecific hypoechoic area involving the posterior part of the pancreas along the head and body region. Recommend CT scan of the abdomen with oral and IV contrast further evaluation. 2. Fatty infiltration throughout the liver. 3. There is thickening of the gallbladder wall at 6 mm. This is suggestive of chronic gallbladder disease. 4. Small amount of free fluid adjacent to the liver and spleen in the upper abdomen.. 5. Right-sided pleural effusion. Víctor Rosas MD Head CT 04/12/17 0000 Signed Impressions: Service Date/Time: Wednesday, April 12, 2017 21:30 - CONCLUSION: Pontine encephalomalacia. Left mastoiditis. Casper Alva MD Head Magnetic Resonance Angiography 03/28/17 0000 Signed Impressions: Service Date/Time: March 17:22 - CONCLUSION: Unremarkable examination. K. Bijan Castillo MD Brain MRI 03/28/17 0000 Signed Impressions: Service Date/Time: March 17:22 - CONCLUSION: 1. 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 Small subacute ischemic bilateral thalamic infarcts. 2. There has been no significant change when compared to the prior exam. Yinka Harman MD Lower Extremity Ultrasound 03/25/17 0000 Signed Impressions: Service Date/Time: Saturday, March 25, 2017 22:17 - CONCLUSION: No evidence of DVT. Víctor Rosas MD CT Angiography 03/21/17 0000 Signed Impressions: Service Date/Time: March 00:33 - CONCLUSION: No evidence of pulmonary embolism is identified. Mild atelectasis left lung base. Fluid or phlegm within the trachea. Milo Muhammad MD Abdomen Ultrasound 03/20/17 0000 Signed Impressions: Service Date/Time: Monday, March 20, 2017 11:38 - CONCLUSION: 1. Hepatosplenomegaly without focal lesion. 2. Probable sludge within the lumen of the gallbladder. No intrahepatic duct. Cheo Martínez MD Shoulder X-Ray 03/02/17 1404 Signed Impressions: Service Date/Time: Thursday, March 02, 2017 15:18 - CONCLUSION: No evidence of recent bony injury. Deformity of the lateral left clavicle suggests old healed trauma. Cheo Martínez MD Maxillofacial CT 03/02/17 1342 Signed Impressions: Service Date/Time: Thursday, March 02, 2017 14:52 - CONCLUSION: Negative CT of the facial bones. Cheo Martínez MD Chest CT 03/02/17 1342 Signed Impressions: Service Date/Time: Thursday, March 02, 2017 15:04 - CONCLUSION: 1. Abnormal appearance of the lateral left clavicle suggesting a combination of acute and chronic bony injury. Fracture lucencies without bridging callus is seen the region of the coracoid process. 2. The lungs are clear. No evidence of pneumothorax. 3. Moderate size hiatus hernia. Cheo Martínez MD Cervical Spine CT 03/02/17 1342 Signed Impressions: Service Date/Time: Thursday, March 02, 2017 14:52 - CONCLUSION: Negative CT cervical spine. Cheo Martínez MD Objective Remarks GENERAL: Laying abed, in NAD SKIN: Warm and dry. HEAD: Normocephalic. EYES: No scleral icterus. No injection or drainage. NECK: Supple, trachea midline. No lymphadenopathy. CARDIOVASCULAR: Regular rate and rhythm without murmurs, gallops, or rubs. RESPIRATORY: Breath sounds equal bilaterally. Rhonchi noted. No accessory muscle use. GASTROINTESTINAL: Abdomen soft, non-tender, nondistended. MUSCULOSKELETAL: No cyanosis, or edema. PSYCHOLOGICAL: A&O x3, no overt signs/symptoms of depression and/or anxiety. Procedures 03/02/2017 - arterial line and central line placement. 03/25/2017 - central line placement and intubation Medications and IVs Current Medications Medications (Trade) Dose Ordered Sig/Mae Route Start Time Stop Time Status Last Admin (Tears Naturale Opth Soln) 1 drop TID EACH EYE 03/20/17 09:00 05/27/17 11:53 (Zofran Inj) 4 mg Q6H PRN IV 03/20/17 07:30 05/25/17 05:17 (Senokot) 17.2 mg Q12H PRN PO 03/20/17 07:30 (Bactroban Nasal 2% Oint) Taper BID EACH NARE 03/20/17 09:00 03/16/18 08:59 05/27/17 11:53 (Lactinex) 1 tab TID PO 03/24/17 18:00 05/27/17 11:52 (NS Flush) UNSCH PRN IVF 03/25/17 10:15 05/26/17 21:19 (Peridex 0.12% Liq) 15 ml BID@08,20 MT 03/25/17 20:00 05/27/17 08:00 (Tylenol) 500 mg Q6H PRN PO 04/01/17 23:15 05/12/17 09:54 (Colace Liq) 100 mg Q12HR PO 04/03/17 21:00 Hold 04/13/17 11:42 (Mycostatin Powder) 1 applic Q12HR TOPICAL 04/03/17 21:00 05/27/17 11:53 (Vitamin B1) 100 mg DAILY PO 04/05/17 09:00 05/27/17 11:52 (Ativan Inj) 1 mg Q2H PRN IV PUSH 04/13/17 11:00 04/19/17 17:41 (Mag-Ox) 800 mg UNSCH PRN PO 04/14/17 18:00 (Prevacid Odt) 30 mg DAILY NG 04/27/17 09:00 05/27/17 11:51 (Keppra Liq) 1,000 mg Q12HR NG 04/27/17 21:00 05/27/17 11:51 (Heparin Inj) 5,000 units Q12HR SQ 04/27/17 21:00 05/27/17 11:55 (Dakin'S 0.125% Soln) 100 ml DAILY TOPICAL 05/02/17 12:00 05/26/17 09:55 (Lactulose Liq) 30 ml Q12H PRN PO 05/10/17 17:00 (Roxanol Liq) 5 mg Q4H PRN G-TUBE 05/12/17 14:45 05/27/17 01:24 (Levsin Liq) 0.125 mg Q4H PRN PO 05/20/17 15:00 05/27/17 05:30 (Folate) 1 mg DAILY PEG 05/21/17 09:00 05/27/17 11:52 (Lasix) 40 mg DAILY PO 05/27/17 09:00 05/27/17 11:52 Urinary Catheter: Yes Assessment to: Continue Johns insert reason: Prolonged Immobilization Date of Insertion: May 14, 2017 A/P Problem List: (1) Chronic hyponatremia ICD Code: E87.1 Status: Acute (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 Sandhu is a 61 year old male with a history of alcohol abuse, severe hypernatremia who presented to the ED on 03/02/2017 due to worsening fatigue, weakness that started 13 days prior to this hospitalization. He was found to have significant delirium. He admitted to drinking alcohol as well as taking xanax as well. ED work up indicated Na 99, Bilirubin 8.9, Lactate 9.8, Ammonia 60, CK 7000, troponin 4.9, Creatinine 1.5, bicarb 13. His WBC was 12, Platelets 112, INR 1.9. Meld score 26. He was severely hydrated. Patient was started on isotonic saline in an effort to improve hypovolemia. Patients sodium corrected too rapidly. Patient was treated for distributive shock, alcohol withdrawal and electrolyte imbalances in the ICU. 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 - Continue Keppra 1000 mg every 12 hours. - Lorazepam 1 mg every 12 hours PO for seizures. - Labs ordered and results pending. Alcoholic liver disease Alcohol dependence Lower extremity thigh edema, improving - CT abdomen shows liver cirrhosis. - DCd rifaximin. Monitor neuro status. - Continue folic acid and thiamine. - Lower thigh edema assessed today and improving. - Furosemide 40 mg PO daily starting tomorrow. - Monitor UO, electrolytes and intake closely while on diuretics. Acute hypoxemic and hypercapnic respiratory failure - Status post tracheostomy on 04/16/2017. Pulmonology following. - Levsin available PRN for increased tracheal secretions. - Continue Duonebs scheduled. Urinary tract infection, resolved. - Urine culture + Klebsiella pneumoniae and Enterococcus faecalis. - DCd ceftriaxone, course completed. Diarrhea, resolved: C difficile recheck negative. Chronic pain: Continue Roxanol 5 mg PO q4h PRN per pain scale. GI prophylaxis: Prevacid DVT Prophylaxis: Heparin subcutaneous. Full code. Case discussed with pt, RN (Mara), and Dr. Sebastian. Discharge Planning 05/27/17 Spoke with pt and informed him of the rehab search he is aware the payor source has minimum benefits. Pt informed [facility] that his dtr is suppose to get out Oct or Nov. Pt asked [facility] to call friend Guillermo ([phone]) to bring anant but Guillermo states he has not rec'd mail as of yet. Pt states he plans to get better and if the mucus is controlled he thinks he can get trach capped. Rec'd calls from both [facility] and [facility] and both have declined pat stating tghis pt will be to expensive for what medicaid would reimburse them. If pt condition upgrades facility will take another look at pt. Pt was placed on Passy Tammy today 05/22/17. Pt is going to be a difficult placement due to payor source and level of care at this time. Referral given to [facility] ([phone]) and [facility] ([phone]). 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 DEB May 27, 2017 14:37
[2017-05-27] MEDS: SODIUM HYPOCHLORITE 0.125% 500 ML BTL TOPICAL SCH (18:13)
[2017-05-28] VITALS (8 sets, daily range): BP systolic 96–129; BP diastolic 60–68; PULSE 85–94; RESP 18–20; TEMP 97–98.6; O2SAT 96–100
[2017-05-28] MEDS: CHLORHEXIDINE 0.12% (ORAL KIT) 15 ML CUP MT SCH ×2 (08:00→20:00)
[2017-05-28] MEDS: RESP: ALBUTEROL 2.5 MG/IPRATROPIUM 0.5 MG NEB (SCH) INH ×2 (08:23→12:05)
[2017-05-28] MEDS: MUPIROCIN 2% OINT 1 APPLIC/GM SYR EACH NARE SCH ×2 (09:45→21:57)
[2017-05-28] MEDS: levETIRAcetam 500 MG/5 ML UDC NG SCH ×2 (09:45→21:57)
[2017-05-28] MEDS: HEPARIN SODIUM - SQ 10,000 UNITS/ML VIAL SQ SCH ×2 (09:45→21:57)
[2017-05-28] MEDS: SODIUM HYPOCHLORITE 0.125% 500 ML BTL TOPICAL SCH (09:45)
[2017-05-28] MEDS: NYSTATIN 100,000 U/GM PWD 15 GM BTL TOPICAL SCH ×2 (09:45→21:00)
[2017-05-28] MEDS: ARTIFICIAL TEARS OPTH SOLN 15 ML BTL EACH EYE SCH ×3 (09:46→17:15)
[2017-05-28] MEDS: FOLIC ACID 1 MG TAB PEG SCH (09:47)
[2017-05-28] MEDS: LANSOPRAZOLE SOLUTAB 30 MG TAB NG SCH (09:47)
[2017-05-28] MEDS: FUROSEMIDE 40 MG TAB PO SCH (09:48)
[2017-05-28] MEDS: THIAMINE HCL 100 MG TAB PO SCH (09:48)
[2017-05-28] MEDS: LACTOBACILLUS ACIDOPHILUS TAB PO SCH ×3 (09:48→17:15)
[2017-05-28 10:00] LABS: HEMATOCRIT 23.4 % (39.0-51.0); MEAN CORPUSCULAR HEMOGLOBIN 33.6 PG (27.0-34.0); MEAN CORPUSCULAR HGB CONC 35.4 % (32.0-36.0); PLATELET COUNT 192 TH/MM3 (150-450); RED BLOOD COUNT 2.46 MIL/MM3 (4.50-5.90); RED CELL DISTRIBUTION WIDTH 13.6 % (11.6-17.2); REVIEW FLAG FINAL; WHITE BLOOD COUNT 7.4 TH/MM3 (4.0-11.0)
[2017-05-28 10:23] LABS: POTASSIUM 3.8 MEQ/L (3.5-5.1)
--- NOTE | 2017-05-28 12:28 | HHI.PR ---
Subjective Remarks Follow-up for hyponatremia, osmotic demyelination syndrome. Patient seen and examined today, lying in bed, NAD. Denies any new acute complaint overnight. He report having a popping sensation in his ears. Pt reported secretions are less with medication recently prescribed (Levsin); not able to say whether the amount of secretions is better or not. Pt again questioned when he could resume eating "normal food." Denies cough, shortness of breath, pain, NVD,poor sleep. Per pt's RN (Sandra) no new issues developed over night or since start of shift. She reported having to suction pt several times since start of shift. Objective Vitals Vital Signs Date Time Temp Pulse Resp B/P Pulse Ox O2 Delivery O2 Flow Rate FiO2 05/28/17 08:30 97 T-piece 5.00 28 05/28/17 08:00 98.2 90 20 129/68 99 05/28/17 05:37 98.4 85 18 96/60 96 05/27/17 23:40 98.5 89 18 100/63 97 05/27/17 22:06 T-Piece 5.00 28 05/27/17 20:55 96 T-piece 6.00 28 05/27/17 19:54 94 05/27/17 19:38 98.1 91 18 110/69 96 05/27/17 16:00 98.6 90 20 105/61 99 I/O 05/27/17 05/27/17 05/27/17 05/28/17 05/28/17 05/28/17 07:00 15:00 23:00 07:00 15:00 23:00 Intake Total 0 ml 0 ml 0 ml 0 ml Output Total 650 ml 1850 ml 1075 ml 650 ml Balance -650 ml -1850 ml -1075 ml -650 ml Intake Oral 0 ml 0 ml 0 ml 0 ml Output Urine Total 650 ml 1850 ml 1075 ml 650 ml # Voids 0 # Bowel Movements 0 2 2 2 Result Diagram: 05/28/1783605/28/17836 Objective Remarks GENERAL: Laying abed, in NAD SKIN: Warm and dry. HEAD: Normocephalic. EYES: No scleral icterus. No injection or drainage. NECK: Supple, trachea midline. No lymphadenopathy. T-piece in place. CARDIOVASCULAR: Regular rate and rhythm without murmurs, gallops, or rubs. RESPIRATORY: Breath sounds equal bilaterally.No rhonchi or wheezes noted. No accessory muscle use. GASTROINTESTINAL: Abdomen soft, non-tender, nondistended. MUSCULOSKELETAL: No cyanosis, or edema. PSYCHOLOGICAL: A&O x3, no overt signs/symptoms of depression and/or anxiety. Procedures 03/02/2017 - arterial line and central line placement. 03/25/2017 - central line placement and intubation Medications and IVs Current Medications Medications (Trade) Dose Ordered Sig/Mae Route Start Time Stop Time Status Last Admin (Tears Naturale Opth Soln) 1 drop TID EACH EYE 03/20/17 09:00 05/28/17 09:46 (Zofran Inj) 4 mg Q6H PRN IV 03/20/17 07:30 05/25/17 05:17 (Senokot) 17.2 mg Q12H PRN PO 03/20/17 07:30 (Bactroban Nasal 2% Oint) Taper BID EACH NARE 03/20/17 09:00 03/16/18 08:59 05/28/17 09:45 (Lactinex) 1 tab TID PO 03/24/17 18:00 05/28/17 09:48 (NS Flush) UNSCH PRN IVF 03/25/17 10:15 05/26/17 21:19 (Peridex 0.12% Liq) 15 ml BID@08,20 MT 03/25/17 20:00 05/28/17 08:00 (Tylenol) 500 mg Q6H PRN PO 04/01/17 23:15 05/12/17 09:54 (Colace Liq) 100 mg Q12HR PO 04/03/17 21:00 Hold 04/13/17 11:42 (Mycostatin Powder) 1 applic Q12HR TOPICAL 04/03/17 21:00 05/28/17 09:45 (Vitamin B1) 100 mg DAILY PO 04/05/17 09:00 05/28/17 09:48 (Ativan Inj) 1 mg Q2H PRN IV PUSH 04/13/17 11:00 04/19/17 17:41 (Mag-Ox) 800 mg UNSCH PRN PO 04/14/17 18:00 (Prevacid Odt) 30 mg DAILY NG 04/27/17 09:00 05/28/17 09:47 (Keppra Liq) 1,000 mg Q12HR NG 04/27/17 21:00 05/28/17 09:45 (Heparin Inj) 5,000 units Q12HR SQ 04/27/17 21:00 05/28/17 09:45 (Dakin'S 0.125% Soln) 100 ml DAILY TOPICAL 05/02/17 12:00 05/28/17 09:45 (Lactulose Liq) 30 ml Q12H PRN PO 05/10/17 17:00 (Roxanol Liq) 5 mg Q4H PRN G-TUBE 05/12/17 14:45 05/27/17 21:56 (Levsin Liq) 0.125 mg Q4H PRN PO 05/20/17 15:00 05/27/17 18:15 (Folate) 1 mg DAILY PEG 05/21/17 09:00 05/28/17 09:47 (Lasix) 40 mg DAILY PO 05/27/17 09:00 05/28/17 09:48 (Benadryl Liq) 12.5 mg Q4H PRN PO 05/27/17 19:15 Urinary Catheter: Yes Assessment to: Continue Johns insert reason: Prolonged Immobilization Date of Insertion: May 14, 2017 A/P Problem List: (1) Chronic hyponatremia ICD Code: E87.1 Status: Acute (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 Sandhu is a 61 year old male with a history of alcohol abuse, severe hypernatremia who presented to the ED on 03/02/2017 due to worsening fatigue, weakness that started 13 days prior to this hospitalization. He was found to have significant delirium. He admitted to drinking alcohol as well as taking xanax as well. ED work up indicated Na 99, Bilirubin 8.9, Lactate 9.8, Ammonia 60, CK 7000, troponin 4.9, Creatinine 1.5, bicarb 13. His WBC was 12, Platelets 112, INR 1.9. Meld score 26. He was severely hydrated. Patient was started on isotonic saline in an effort to improve hypovolemia. Patients sodium corrected too rapidly. Patient was treated for distributive shock, alcohol withdrawal and electrolyte imbalances in the ICU. 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 - Continue Keppra 1000 mg every 12 hours. - Lorazepam 1 mg every 12 hours PO for seizures. - Labs ordered and results pending. Alcoholic liver disease Alcohol dependence Lower extremity thigh edema, improving - CT abdomen shows liver cirrhosis. - DCd rifaximin. Monitor neuro status. - Continue folic acid and thiamine. - Lower thigh edema assessed today and improving. - Furosemide 40 mg PO daily starting tomorrow. - Monitor UO, electrolytes and intake closely while on diuretics. Acute hypoxemic and hypercapnic respiratory failure - Status post tracheostomy on 04/16/2017. Pulmonology following. - Levsin available PRN for increased tracheal secretions. - Continue Duonebs scheduled. Urinary tract infection, resolved. - Urine culture + Klebsiella pneumoniae and Enterococcus faecalis. - DC'ed ceftriaxone, course completed. Diarrhea, resolved: C difficile recheck negative. Chronic pain: Continue Roxanol 5 mg PO q4h PRN per pain scale. -RN reported on 05/27/17 pt was declining morphine because of itching. Benadryl 12.5 mg ordered to be given with Roxanol to address itching, GI prophylaxis: Prevacid DVT Prophylaxis: Heparin subcutaneous. Full code. Case discussed with pt, RN (Sandra), and Dr. Sebastian. Discharge Planning Per notes: 05/27/17 Spoke with pt and informed him of the rehab search he is aware the payor source has minimum benefits. [facility]ermo ([phone]) to bring anant but Guillermo states he has not rec'd mail as of yet. Pt states he plans to get better and if the mucus is controlled he thinks he can get trach capped. Rec'd calls from both [facility] [employer] and [facility] and both have declined pat stating tghis pt will be to expensive for what medicaid would reimburse them. If pt condition upgrades facility will take another look at pt. Pt was placed on Passy Tammy today 05/22/17. Pt is going to be a difficult placement due to payor source and level of care at this time. Referral given to [facility] ([phone]) and [facility] ([phone]). [facility], [facility], 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 DEB May 28, 2017 12:28
[2017-05-28] MEDS: diphenhydrAMINE HCL ELIXIR 12.5 MG/5 ML CUP PO PRN ×2 (13:18→21:57)
[2017-05-28] MEDS: MORPHINE SULFATE ORAL SOLN 10 MG/0.5 ML SYRINGE G-TUBE PRN ×2 (13:18→21:57)
[2017-05-28] MEDS: RESP: ALBUTEROL 2.5 MG/3 ML NEB (PRN) INH (21:37)
[2017-05-28] MEDS: HYOSCYAMINE SOLN 0.125 MG/ML 15 ML BTL PO PRN (21:56)
[2017-05-29] VITALS (9 sets, daily range): BP systolic 102–114; BP diastolic 56–67; PULSE 80–97; RESP 16–20; TEMP 97–98.8; O2SAT 95–100
[2017-05-29 07:12] LABS: HEMATOCRIT 24.9 % (39.0-51.0); MEAN CORPUSCULAR HEMOGLOBIN 32.6 PG (27.0-34.0); PLATELET COUNT 182 TH/MM3 (150-450); RED CELL DISTRIBUTION WIDTH 13.7 % (11.6-17.2); REVIEW FLAG FINAL; WHITE BLOOD COUNT 7.7 TH/MM3 (4.0-11.0)
[2017-05-29 07:37] LABS: BICARBONATE 30.2 MEQ/L (21.0-32.0)
[2017-05-29] MEDS: diphenhydrAMINE HCL ELIXIR 12.5 MG/5 ML CUP PO PRN ×2 (08:32→17:23)
[2017-05-29] MEDS: LACTOBACILLUS ACIDOPHILUS TAB PO SCH ×3 (08:33→17:23)
[2017-05-29] MEDS: FUROSEMIDE 40 MG TAB PO SCH (08:33)
[2017-05-29] MEDS: MORPHINE SULFATE ORAL SOLN 10 MG/0.5 ML SYRINGE G-TUBE PRN ×2 (08:33→17:23)
[2017-05-29] MEDS: LANSOPRAZOLE SOLUTAB 30 MG TAB NG SCH (08:33)
[2017-05-29] MEDS: THIAMINE HCL 100 MG TAB PO SCH (08:33)
[2017-05-29] MEDS: HEPARIN SODIUM - SQ 10,000 UNITS/ML VIAL SQ SCH ×2 (08:33→21:13)
[2017-05-29] MEDS: CHLORHEXIDINE 0.12% (ORAL KIT) 15 ML CUP MT SCH ×2 (08:34→20:00)
[2017-05-29] MEDS: levETIRAcetam 500 MG/5 ML UDC NG SCH ×2 (08:34→21:13)
[2017-05-29] MEDS: FOLIC ACID 1 MG TAB PEG SCH (08:34)
[2017-05-29] MEDS: MUPIROCIN 2% OINT 1 APPLIC/GM SYR EACH NARE SCH ×2 (08:34→21:00)
[2017-05-29] MEDS: ARTIFICIAL TEARS OPTH SOLN 15 ML BTL EACH EYE SCH ×3 (08:34→17:23)
[2017-05-29] MEDS: HYOSCYAMINE SOLN 0.125 MG/ML 15 ML BTL PO PRN (08:37)
[2017-05-29] MEDS: SODIUM HYPOCHLORITE 0.125% 500 ML BTL TOPICAL SCH (09:00)
[2017-05-29] MEDS: NYSTATIN 100,000 U/GM PWD 15 GM BTL TOPICAL SCH ×2 (09:01→21:00)
--- NOTE | 2017-05-29 12:29 | HHI.PR ---
Subjective Remarks Follow-up for hyponatremia, osmotic demyelination syndrome. Patient seen and examined today, lying in bed, NAD. He reported feeling "sick" at about 4:00 am this morning. He said he was nauseated and improving over the course of the morning. Otherwise, he denied any new acute complaint overnight. Pt reported secretions are less with medication recently prescribed (Levsin). Denies cough, shortness of breath, pain, NVD,poor sleep. Chart reviewed and no new issues developed over night or since start of shift. Objective Vitals Vital Signs Date Time Temp Pulse Resp B/P Pulse Ox O2 Delivery O2 Flow Rate FiO2 05/29/17 11:10 97 T-piece 28 05/29/17 08:00 98.1 87 18 108/63 99 05/29/17 04:00 98.5 92 18 105/65 96 05/29/17 00:00 98.4 97 20 108/67 98 05/28/17 21:38 97 T-piece 6.00 05/28/17 20:16 89 05/28/17 20:00 98.6 89 20 114/66 100 05/28/17 19:59 T-Piece 4.00 05/28/17 16:00 97.0 85 18 114/68 99 05/28/17 16:00 T-Piece 05/28/17 14:18 20 I/O 05/28/17 05/28/17 05/28/17 05/29/17 05/29/17 05/29/17 07:00 15:00 23:00 07:00 15:00 23:00 Intake Total 0 ml 0 ml 0 ml Output Total 650 ml 1900 ml 0 ml 500 ml Balance -650 ml -1900 ml 0 ml -500 ml Intake Oral 0 ml 0 ml 0 ml Output Urine Total 650 ml 1900 ml 0 ml 500 ml # Bowel Movements 2 4 0 1 Result Diagram: 05/29/17 0625 05/29/17 0625 Imaging Last Impressions Chest X-Ray 05/16/17 0000 Signed Impressions: Service Date/Time: May 12:56 - CONCLUSION: Improving lung aeration with decreasing air space disease. Persistent left basilar consolidation. Carlos Galindo MD Abdomen/Pelvis CT 05/08/17 0000 Signed Impressions: Service Date/Time: Monday, May 08, 2017 23:10 - CONCLUSION: Significant fluid throughout the abdomen and the pelvis with what appears to be a cirrhotic appearing liver and splenomegaly. There is significant small bowel wall thickening throughout the lower abdomen and the upper pelvis without evidence of obstruction Milo Muhammad MD Abdomen X-Ray 05/08/17 0000 Signed Impressions: Service Date/Time: Monday, May 08, 2017 15:30 - CONCLUSION: 1. There is diffuse, mild gaseous distention of the small bowel. No findings to indicate obstruction. Mihir Harry MD Liver Ultrasound 04/15/17 0000 Signed Impressions: Service Date/Time: Saturday, April 15, 2017 09:24 - CONCLUSION: 1. Abnormal appearance of the pancreas with a nonspecific hypoechoic area involving the posterior part of the pancreas along the head and body region. Recommend CT scan of the abdomen with oral and IV contrast further evaluation. 2. Fatty infiltration throughout the liver. 3. There is thickening of the gallbladder wall at 6 mm. This is suggestive of chronic gallbladder disease. 4. Small amount of free fluid adjacent to the liver and spleen in the upper abdomen.. 5. Right-sided pleural effusion. Víctor Rosas MD Head CT 04/12/17 0000 Signed Impressions: Service Date/Time: Wednesday, April 12, 2017 21:30 - CONCLUSION: Pontine encephalomalacia. Left mastoiditis. Casper Alva MD Head Magnetic Resonance Angiography 03/28/17 0000 Signed Impressions: Service Date/Time: March 17:22 - CONCLUSION: Unremarkable examination. KShiv Castillo MD Brain MRI 03/28/17 0000 Signed Impressions: Service Date/Time: March 17:22 - CONCLUSION: 1. 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 Small subacute ischemic bilateral thalamic infarcts. 2. There has been no significant change when compared to the prior exam. Yinka Harman MD Lower Extremity Ultrasound 03/25/17 0000 Signed Impressions: Service Date/Time: Saturday, March 25, 2017 22:17 - CONCLUSION: No evidence of DVT. Víctor Rosas MD CT Angiography 03/21/17 0000 Signed Impressions: Service Date/Time: March 00:33 - CONCLUSION: No evidence of pulmonary embolism is identified. Mild atelectasis left lung base. Fluid or phlegm within the trachea. Milo Muhammad MD Abdomen Ultrasound 03/20/17 0000 Signed Impressions: Service Date/Time: Monday, March 20, 2017 11:38 - CONCLUSION: 1. Hepatosplenomegaly without focal lesion. 2. Probable sludge within the lumen of the gallbladder. No intrahepatic duct. Cheo Martínez MD Shoulder X-Ray 03/02/17 1404 Signed Impressions: Service Date/Time: Thursday, March 02, 2017 15:18 - CONCLUSION: No evidence of recent bony injury. Deformity of the lateral left clavicle suggests old healed trauma. Cheo Martínez MD Maxillofacial CT 03/02/17 1342 Signed Impressions: Service Date/Time: Thursday, March 02, 2017 14:52 - CONCLUSION: Negative CT of the facial bones. Cheo Martínez MD Chest CT 03/02/17 1342 Signed Impressions: Service Date/Time: Thursday, March 02, 2017 15:04 - CONCLUSION: 1. Abnormal appearance of the lateral left clavicle suggesting a combination of acute and chronic bony injury. Fracture lucencies without bridging callus is seen the region of the coracoid process. 2. The lungs are clear. No evidence of pneumothorax. 3. Moderate size hiatus hernia. Cheo Martínez MD Cervical Spine CT 03/02/17 1342 Signed Impressions: Service Date/Time: Thursday, March 02, 2017 14:52 - CONCLUSION: Negative CT cervical spine. Cheo Martínez MD Objective Remarks GENERAL: Laying abed, in NAD SKIN: Warm and dry. HEAD: Normocephalic. EYES: No scleral icterus. No injection or drainage. NECK: Supple, trachea midline. No lymphadenopathy. T-piece in place. CARDIOVASCULAR: Regular rate and rhythm without murmurs, gallops, or rubs. RESPIRATORY: Breath sounds equal bilaterally.No rhonchi or wheezes noted. No accessory muscle use. GASTROINTESTINAL: Abdomen soft, non-tender, nondistended. MUSCULOSKELETAL: No cyanosis, or edema. PSYCHOLOGICAL: A&O x3, no overt signs/symptoms of depression and/or anxiety. Procedures 03/02/2017 - arterial line and central line placement. 03/25/2017 - central line placement and intubation Medications and IVs Current Medications Medications (Trade) Dose Ordered Sig/Mae Route Start Time Stop Time Status Last Admin (Tears Naturale Opth Soln) 1 drop TID EACH EYE 03/20/17 09:00 05/29/17 08:34 (Zofran Inj) 4 mg Q6H PRN IV 03/20/17 07:30 05/25/17 05:17 (Senokot) 17.2 mg Q12H PRN PO 03/20/17 07:30 (Bactroban Nasal 2% Oint) Taper BID EACH NARE 03/20/17 09:00 03/16/18 08:59 05/29/17 08:34 (Lactinex) 1 tab TID PO 03/24/17 18:00 05/29/17 08:33 (NS Flush) UNSCH PRN IVF 03/25/17 10:15 05/26/17 21:19 (Peridex 0.12% Liq) 15 ml BID@08,20 MT 03/25/17 20:00 05/29/17 08:34 (Tylenol) 500 mg Q6H PRN PO 04/01/17 23:15 05/12/17 09:54 (Colace Liq) 100 mg Q12HR PO 04/03/17 21:00 Hold 04/13/17 11:42 (Mycostatin Powder) 1 applic Q12HR TOPICAL 04/03/17 21:00 05/29/17 09:01 (Vitamin B1) 100 mg DAILY PO 04/05/17 09:00 05/29/17 08:33 (Ativan Inj) 1 mg Q2H PRN IV PUSH 04/13/17 11:00 04/19/17 17:41 (Mag-Ox) 800 mg UNSCH PRN PO 04/14/17 18:00 (Prevacid Odt) 30 mg DAILY NG 04/27/17 09:00 05/29/17 08:33 (Keppra Liq) 1,000 mg Q12HR NG 04/27/17 21:00 05/29/17 08:34 (Heparin Inj) 5,000 units Q12HR SQ 04/27/17 21:00 05/29/17 08:33 (Dakin'S 0.125% Soln) 100 ml DAILY TOPICAL 05/02/17 12:00 05/29/17 09:00 (Lactulose Liq) 30 ml Q12H PRN PO 05/10/17 17:00 (Roxanol Liq) 5 mg Q4H PRN G-TUBE 05/12/17 14:45 05/29/17 08:33 (Levsin Liq) 0.125 mg Q4H PRN PO 05/20/17 15:00 05/29/17 08:37 (Folate) 1 mg DAILY PEG 05/21/17 09:00 05/29/17 08:34 (Lasix) 40 mg DAILY PO 05/27/17 09:00 05/29/17 08:33 (Benadryl Liq) 12.5 mg Q4H PRN PO 05/27/17 19:15 05/29/17 08:32 Urinary Catheter: Yes Assessment to: Continue Date of Insertion: May 14, 2017 A/P Problem List: (1) Chronic hyponatremia ICD Code: E87.1 Status: Acute (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 Sandhu is a 61 year old male with a history of alcohol abuse, severe hypernatremia who presented to the ED on 03/02/2017 due to worsening fatigue, weakness that started 13 days prior to this hospitalization. He was found to have significant delirium. He admitted to drinking alcohol as well as taking xanax as well. ED work up indicated Na 99, Bilirubin 8.9, Lactate 9.8, Ammonia 60, CK 7000, troponin 4.9, Creatinine 1.5, bicarb 13. His WBC was 12, Platelets 112, INR 1.9. Meld score 26. He was severely hydrated. Patient was started on isotonic saline in an effort to improve hypovolemia. Patients sodium corrected too rapidly. Patient was treated for distributive shock, alcohol withdrawal and electrolyte imbalances in the ICU. 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 - Continue Keppra 1000 mg every 12 hours. - Lorazepam 1 mg every 12 hours PO for seizures. - Labs ordered results WNL. Alcoholic liver disease Alcohol dependence Lower extremity thigh edema, improving - CT abdomen shows liver cirrhosis. - DCd rifaximin. Monitor neuro status. - Continue folic acid and thiamine. - Lower thigh edema assessed today and improving. - Furosemide 40 mg PO daily starting tomorrow. - Monitor UO, electrolytes and intake closely while on diuretics. Acute hypoxemic and hypercapnic respiratory failure - Status post tracheostomy on 04/16/2017. Pulmonology following. - Levsin available PRN for increased tracheal secretions. - Continue Duonebs scheduled. Urinary tract infection, resolved. - Urine culture + Klebsiella pneumoniae and Enterococcus faecalis. - DC'ed ceftriaxone, course completed. Diarrhea, resolved: C difficile recheck negative. Chronic pain: Continue Roxanol 5 mg PO q4h PRN per pain scale. -RN reported on 05/27/17 pt was declining morphine because of itching. Benadryl 12.5 mg ordered to be given with Roxanol to address itching, GI prophylaxis: Prevacid DVT Prophylaxis: Heparin subcutaneous. Full code. Case discussed with pt and Dr. Sebastian. Discharge Planning Per CM notes: 05/27/17 Spoke with pt and informed him of the rehab search he is aware the payor source has minimum benefits. Pt informed [facility] that his dtr is suppose to get out Oct or Nov. Pt asked [facility] to call friend Guillermo ([phone]) to bring anant but Guillermo states he has not rec'd mail as of yet. Pt states he plans to get better and if the mucus is controlled he thinks he can get trach capped. Rec'd calls from both [facility] and [facility] and both have declined pat stating tghis pt will be to expensive for what medicaid would reimburse them. If pt condition upgrades facility will take another look at pt. Pt was placed on [facility] [place] today 05/22/17. Pt is going to be a difficult placement due to payor source and level of care at this time. [facility] ([phone][facility] and [facility] ([phone]). 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 DEB May 29, 2017 12:29
[2017-05-29] MEDS: RESP: ACETYLCYSTEINE 20% 30 ML NEB NEB SCH ×2 (14:00→19:06)
[2017-05-29] MEDS: RESP: ALBUTEROL 2.5 MG/IPRATROPIUM 0.5 MG NEB (SCH) INH ×2 (14:24→19:06)
[2017-05-30] VITALS (9 sets, daily range): BP systolic 100–118; BP diastolic 61–67; PULSE 82–94; RESP 16–18; TEMP 97.8–98.8; O2SAT 96–98
[2017-05-30] MEDS: diphenhydrAMINE HCL ELIXIR 12.5 MG/5 ML CUP PO PRN ×4 (00:10→23:41)
[2017-05-30] MEDS: MORPHINE SULFATE ORAL SOLN 10 MG/0.5 ML SYRINGE G-TUBE PRN ×4 (00:11→23:41)
[2017-05-30] MEDS: RESP: ACETYLCYSTEINE 20% 30 ML NEB NEB SCH ×3 (08:10→19:13)
[2017-05-30] MEDS: RESP: ALBUTEROL 2.5 MG/IPRATROPIUM 0.5 MG NEB (SCH) INH ×3 (08:10→19:13)
[2017-05-30] MEDS: LANSOPRAZOLE SOLUTAB 30 MG TAB NG SCH (10:07)
[2017-05-30] MEDS: levETIRAcetam 500 MG/5 ML UDC NG SCH ×2 (10:08→22:06)
[2017-05-30] MEDS: THIAMINE HCL 100 MG TAB PO SCH (10:08)
[2017-05-30] MEDS: HEPARIN SODIUM - SQ 10,000 UNITS/ML VIAL SQ SCH ×2 (10:08→22:06)
[2017-05-30] MEDS: FOLIC ACID 1 MG TAB PEG SCH (10:08)
[2017-05-30] MEDS: MUPIROCIN 2% OINT 1 APPLIC/GM SYR EACH NARE SCH ×2 (10:08→22:05)
[2017-05-30] MEDS: FUROSEMIDE 40 MG TAB PO SCH (10:08)
[2017-05-30] MEDS: LACTOBACILLUS ACIDOPHILUS TAB PO SCH ×3 (10:08→16:53)
[2017-05-30] MEDS: SODIUM HYPOCHLORITE 0.125% 500 ML BTL TOPICAL SCH (10:09)
[2017-05-30] MEDS: SODIUM CHLORIDE 0.9% FLUSH 10 ML FLUSH IVF PRN (10:09)
[2017-05-30] MEDS: NYSTATIN 100,000 U/GM PWD 15 GM BTL TOPICAL SCH ×2 (10:09→22:07)
[2017-05-30] MEDS: CHLORHEXIDINE 0.12% (ORAL KIT) 15 ML CUP MT SCH ×2 (10:09→20:00)
[2017-05-30] MEDS: ARTIFICIAL TEARS OPTH SOLN 15 ML BTL EACH EYE SCH ×3 (10:09→16:53)
[2017-05-30 12:33] LABS: HEMATOCRIT 25.6 % (39.0-51.0); MEAN CELL VOLUME 95.2 FL (80.0-100.0); MEAN CORPUSCULAR HGB CONC 34.7 % (32.0-36.0); PLATELET COUNT 197 TH/MM3 (150-450); RED BLOOD COUNT 2.69 MIL/MM3 (4.50-5.90); RED CELL DISTRIBUTION WIDTH 13.7 % (11.6-17.2); REVIEW FLAG FINAL; WHITE BLOOD COUNT 8.1 TH/MM3 (4.0-11.0)
[2017-05-30 13:02] LABS: BICARBONATE 28.4 MEQ/L (21.0-32.0); POTASSIUM 3.9 MEQ/L (3.5-5.1)
--- NOTE | 2017-05-30 16:34 | HHI.PR ---
Subjective Remarks Follow-up for hyponatremia, osmotic demyelination syndrome. Patient seen and examined today, lying in bed, NAD. He reported again feeling "sick" at about 4:00 am this morning. He said he was nauseated and improving over the course of the morning. Otherwise, he denied any new acute complaint overnight. Pt reported secretions are less with medication recently prescribed (Levsin). Denies cough, shortness of breath, pain, NVD,poor sleep. Per RN (Lesley) no new issues developed over night or since start of shift. RN reported pt contnues to have "copious" amounts of secretions and pt "doesn't like to be suctioned." Objective Vitals Vital Signs Date Time Temp Pulse Resp B/P Pulse Ox O2 Delivery O2 Flow Rate FiO2 05/30/17 12:02 98.3 82 18 101/64 97 05/30/17 08:10 96 T-piece 35.00 05/30/17 08:00 T-Piece 5.00 28 05/30/17 08:00 98.8 87 18 118/67 97 05/30/17 04:45 97.9 86 16 100/61 98 05/29/17 23:52 98.0 87 16 105/67 97 05/29/17 20:00 98.8 83 18 102/56 95 05/29/17 19:06 97 T-piece 6.00 28 I/O 05/29/17 05/29/17 05/29/17 05/30/17 05/30/17 05/30/17 07:00 15:00 23:00 07:00 15:00 23:00 Intake Total 0 ml 790 ml Output Total 500 ml 1000 ml 475 ml Balance -500 ml -1000 ml 315 ml Intake Oral 0 ml 0 ml Tube Feeding 540 ml Other 250 ml Output Urine Total 500 ml 1000 ml 475 ml # Bowel Movements 1 1 0 Result Diagram: 05/30/17 1151 05/30/17 1151 Objective Remarks GENERAL: Laying abed, in NAD. Pt writing responses on "white board". SKIN: Warm and dry. HEAD: Normocephalic. EYES: No scleral icterus. No injection or drainage. NECK: Supple, trachea midline. No lymphadenopathy. T-piece in place. CARDIOVASCULAR: Regular rate and rhythm without murmurs, gallops, or rubs. RESPIRATORY: Breath sounds equal bilaterally.No rhonchi or wheezes noted. No accessory muscle use. GASTROINTESTINAL: Abdomen soft, non-tender, nondistended. MUSCULOSKELETAL: No cyanosis, or edema. PSYCHOLOGICAL: A&O x3, no overt signs/symptoms of depression and/or anxiety. Procedures 03/02/2017 - arterial line and central line placement. 03/25/2017 - central line placement and intubation Medications and IVs Current Medications Medications (Trade) Dose Ordered Sig/Mae Route Start Time Stop Time Status Last Admin (Tears Naturale Opth Soln) 1 drop TID EACH EYE 03/20/17 09:00 05/30/17 12:57 (Zofran Inj) 4 mg Q6H PRN IV 03/20/17 07:30 05/25/17 05:17 (Senokot) 17.2 mg Q12H PRN PO 03/20/17 07:30 (Bactroban Nasal 2% Oint) Taper BID EACH NARE 03/20/17 09:00 03/16/18 08:59 05/30/17 10:08 (Lactinex) 1 tab TID PO 03/24/17 18:00 05/30/17 12:57 (NS Flush) UNSCH PRN IVF 03/25/17 10:15 05/30/17 10:09 (Peridex 0.12% Liq) 15 ml BID@08,20 MT 03/25/17 20:00 05/30/17 10:09 (Tylenol) 500 mg Q6H PRN PO 04/01/17 23:15 05/12/17 09:54 (Colace Liq) 100 mg Q12HR PO 04/03/17 21:00 Hold 04/13/17 11:42 (Mycostatin Powder) 1 applic Q12HR TOPICAL 04/03/17 21:00 05/30/17 10:09 (Vitamin B1) 100 mg DAILY PO 04/05/17 09:00 05/30/17 10:08 (Ativan Inj) 1 mg Q2H PRN IV PUSH 04/13/17 11:00 04/19/17 17:41 (Mag-Ox) 800 mg UNSCH PRN PO 04/14/17 18:00 (Prevacid Odt) 30 mg DAILY NG 04/27/17 09:00 05/30/17 10:07 (Keppra Liq) 1,000 mg Q12HR NG 04/27/17 21:00 05/30/17 10:08 (Heparin Inj) 5,000 units Q12HR SQ 04/27/17 21:00 05/30/17 10:08 (Dakin'S 0.125% Soln) 100 ml DAILY TOPICAL 05/02/17 12:00 05/30/17 10:09 (Lactulose Liq) 30 ml Q12H PRN PO 05/10/17 17:00 (Roxanol Liq) 5 mg Q4H PRN G-TUBE 05/12/17 14:45 05/30/17 14:05 (Folate) 1 mg DAILY PEG 05/21/17 09:00 05/30/17 10:08 (Lasix) 40 mg DAILY PO 05/27/17 09:00 05/30/17 10:08 (Benadryl Liq) 12.5 mg Q4H PRN PO 05/27/17 19:15 05/30/17 14:05 Urinary Catheter: Yes Assessment to: Continue Johns insert reason: Prolonged Immobilization Date of Insertion: May 14, 2017 A/P Problem List: (1) Chronic hyponatremia ICD Code: E87.1 Status: Acute (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 Sandhu is a 61 year old male with a history of alcohol abuse, severe hypernatremia who presented to the ED on 03/02/2017 due to worsening fatigue, weakness that started 13 days prior to this hospitalization. He was found to have significant delirium. He admitted to drinking alcohol as well as taking xanax as well. ED work up indicated Na 99, Bilirubin 8.9, Lactate 9.8, Ammonia 60, CK 7000, troponin 4.9, Creatinine 1.5, bicarb 13. His WBC was 12, Platelets 112, INR 1.9. Meld score 26. He was severely hydrated. Patient was started on isotonic saline in an effort to improve hypovolemia. Patients sodium corrected too rapidly. Patient was treated for distributive shock, alcohol withdrawal and electrolyte imbalances in the ICU. 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 - Continue Keppra 1000 mg every 12 hours. - Lorazepam 1 mg every 12 hours PO for seizures. - Labs ordered results WNL. Alcoholic liver disease Alcohol dependence Lower extremity thigh edema, improving - CT abdomen shows liver cirrhosis. - DCd rifaximin. Monitor neuro status. - Continue folic acid and thiamine. - Lower thigh edema assessed today and improving. - Furosemide 40 mg PO daily starting tomorrow. - Monitor UO, electrolytes and intake closely while on diuretics. Acute hypoxemic and hypercapnic respiratory failure - Status post tracheostomy on 04/16/2017. Pulmonology following. - Levsin available PRN for increased tracheal secretions. - Continue Duonebs scheduled. Urinary tract infection, resolved. - Urine culture + Klebsiella pneumoniae and Enterococcus faecalis. - DC'ed ceftriaxone, course completed. Diarrhea, resolved: C difficile recheck negative. Chronic pain: Continue Roxanol 5 mg PO q4h PRN per pain scale. -RN reported on 05/27/17 pt was declining morphine because of itching. Benadryl 12.5 mg ordered to be given with Roxanol to address itching, GI prophylaxis: Prevacid DVT Prophylaxis: Heparin subcutaneous. Full code. Case discussed with pt, RN (Lesley) and Dr. Sebastian. Discharge Planning Per notes: 05/27/17 Spoke with pt and informed him of the rehab search he is aware the payor source has minimum benefits. Pt informed [facility] that his dtr is suppose to get out Oct or Nov. Pt asked [facility] to call friend Guillermo ([phone]) to bring anant but Guillermo states he has not rec'd mail as of yet. Pt states he plans to get better and if the mucus is controlled he thinks he can get trach capped. Rec'd calls from both [facility] and [facility] and both have declined pat stating tghis pt will be to expensive for what medicaid would reimburse them. If pt condition upgrades facility will take another look at pt. Pt was placed on [facility] [place] today 6/21/17. Pt is going to be a difficult placement due to payor source and level of care at this time. Referral given to [facility] ([phone]) and [facility] ([phone]). [facility]: [facility], 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 DEB May 30, 2017 16:34
[2017-05-31] VITALS (8 sets, daily range): BP systolic 97–128; BP diastolic 55–78; PULSE 88–97; RESP 18–20; TEMP 98.2–98.9; O2SAT 93–99
[2017-05-31] MEDS: RESP: ALBUTEROL 2.5 MG/IPRATROPIUM 0.5 MG NEB (SCH) INH ×3 (08:32→21:21)
[2017-05-31] MEDS: RESP: ACETYLCYSTEINE 20% 30 ML NEB NEB SCH ×3 (08:32→21:21)
[2017-05-31] MEDS: CHLORHEXIDINE 0.12% (ORAL KIT) 15 ML CUP MT SCH ×2 (08:57→20:00)
[2017-05-31] MEDS: FUROSEMIDE 40 MG TAB PO SCH (08:58)
[2017-05-31] MEDS: LACTOBACILLUS ACIDOPHILUS TAB PO SCH ×3 (08:59→17:16)
[2017-05-31] MEDS: MUPIROCIN 2% OINT 1 APPLIC/GM SYR EACH NARE SCH ×2 (08:59→21:32)
[2017-05-31] MEDS: ARTIFICIAL TEARS OPTH SOLN 15 ML BTL EACH EYE SCH ×3 (08:59→17:16)
[2017-05-31] MEDS: levETIRAcetam 500 MG/5 ML UDC NG SCH ×2 (08:59→21:00)
[2017-05-31] MEDS: FOLIC ACID 1 MG TAB PEG SCH (08:59)
[2017-05-31] MEDS: LANSOPRAZOLE SOLUTAB 30 MG TAB NG SCH (08:59)
[2017-05-31] MEDS: HEPARIN SODIUM - SQ 10,000 UNITS/ML VIAL SQ SCH ×2 (09:00→21:33)
[2017-05-31] MEDS: THIAMINE HCL 100 MG TAB PO SCH (09:00)
[2017-05-31] MEDS: SODIUM HYPOCHLORITE 0.125% 500 ML BTL TOPICAL SCH (09:00)
[2017-05-31] MEDS: NYSTATIN 100,000 U/GM PWD 15 GM BTL TOPICAL SCH ×2 (09:00→21:00)
--- NOTE | 2017-05-31 09:20 | PD.WCN.NOT ---
Wound Consult Description: Patient seen on for follow up of sacral unstageable pressure injury with visualization of wound under trach. Removed foam dressing in place distally to trach collar to reveal a device related pressure injury previously staged a 3 noted with ~50% pink tissue and ~50% pale red hypergranulation tissue. Wound measures 1cm x 1 cm with hypergranulation ~0.5cm above skin surface. Wound has minimal sero-sanguinous drainage without odor noted. Periwound is unremarkable. Cleansed wound with normal saline and applied foam dressing in place and secured with 1 piece of paper tape placed across distal portion of dressing. Skin prep applied to periwound before applying tape. Patient turned to R side with assistance from patient. 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 Cleansed wound with NS and gauze. Sacral wound measures 4.3cm x 3cm x 1.4cm with ~40% muscle tissue, ~30% granulation tissue, ~20% facia, and ~10% loosely adherent slough. Periwound is noted with partial thickness skin loss @7 o' clock ~3cm from wound. Dakin's moistened 4x4 was loosely packed into wound bed, periwound prepped with Cavilon skin barrier film, and covered with bordered gauze dressing. Patient tolerated dressing change well. Recommendation: Continue dressing changes as ordered for sacral wound. Cleanse wound just below trach collar to anterior neck with normal saline. Apply foam dressing over wound bed and secure distally with paper tape. Please apply skin prep before applying adhesives to skin. Bijal Barbour [facility] May 31, 2017 09:20
[2017-05-31 09:22] LABS: HEMATOCRIT 25.5 % (39.0-51.0); MEAN CELL VOLUME 95.2 FL (80.0-100.0); MEAN CORPUSCULAR HEMOGLOBIN 32.2 PG (27.0-34.0); MEAN CORPUSCULAR HGB CONC 33.8 % (32.0-36.0); PLATELET COUNT 198 TH/MM3 (150-450); RED BLOOD COUNT 2.68 MIL/MM3 (4.50-5.90); RED CELL DISTRIBUTION WIDTH 14.1 % (11.6-17.2); REVIEW FLAG FINAL; WHITE BLOOD COUNT 9.3 TH/MM3 (4.0-11.0)
[2017-05-31 09:56] LABS: BICARBONATE 27.3 MEQ/L (21.0-32.0); POTASSIUM 4.3 MEQ/L (3.5-5.1)
[2017-05-31] MEDS: diphenhydrAMINE HCL ELIXIR 12.5 MG/5 ML CUP PO PRN ×3 (10:58→18:43)
[2017-05-31] MEDS: MORPHINE SULFATE ORAL SOLN 10 MG/0.5 ML SYRINGE G-TUBE PRN ×3 (10:58→18:43)
--- NOTE | 2017-05-31 14:21 | HHI.PR ---
Subjective Remarks Follow-up for hyponatremia, osmotic demyelination syndrome. Patient seen and examined today, lying in bed, NAD and speaking. He denied feeling "sick" as he had the previous two days. He said he was nauseated last evening but I kicked it." Patient voiced having back pain. Otherwise, he denied any new acute complaint overnight. Pt reported being uncertain if his secretions are less with medication recently prescribed (Mucomyst). Denies cough, shortness of breath, NVD,poor sleep. Per RN (Lesley) no new issues developed over night or since start of shift. RT (Isaac) reported pt is evidencing improved breathing. She also reported a "pressure wound" at stoma site and requested pt be positioned in an upright position in order to take pressure off the wound site. She reported wound care is involved. Objective Vitals Vital Signs Date Time Temp Pulse Resp B/P Pulse Ox O2 Delivery O2 Flow Rate FiO2 05/31/17 12:00 98.2 92 20 100/60 93 05/31/17 08:32 Venturi Mask 05/31/17 08:32 96 T-piece 05/31/17 08:00 98.9 96 20 102/55 96 05/31/17 08:00 92 05/31/17 08:00 T-Piece 5.00 05/31/17 04:55 98.9 97 18 128/63 97 05/31/17 01:15 18 05/30/17 23:37 98.0 94 18 111/64 98 05/30/17 22:05 T-Piece 5.00 05/30/17 20:58 97.8 88 18 111/67 97 05/30/17 20:16 89 05/30/17 19:13 97 T-piece 6.00 05/30/17 16:00 98.0 84 18 113/61 97 I/O 05/30/17 05/30/17 05/30/17 05/31/17 05/31/17 05/31/17 07:00 15:00 23:00 07:00 15:00 23:00 Intake Total 790 ml 0 ml 0 ml 803 ml Output Total 475 ml 1500 ml 600 ml 300 ml Balance 315 ml -1500 ml -600 ml -300 ml 803 ml Intake Oral 0 ml 0 ml 0 ml IV Total 8 ml Tube Feeding 540 ml 795 ml Other 250 ml Output Urine Total 475 ml 1500 ml 600 ml 300 ml # Bowel Movements 0 0 0 0 Result Diagram: 05/31/17 0858 05/31/1758 Imaging Last Impressions Chest X-Ray 05/16/17 0000 Signed Impressions: Service Date/Time: May 12:56 - CONCLUSION: Improving lung aeration with decreasing air space disease. Persistent left basilar consolidation. Carlos Galindo MD Abdomen/Pelvis CT 05/08/17 0000 Signed Impressions: Service Date/Time: Monday, May 08, 2017 23:10 - CONCLUSION: Significant fluid throughout the abdomen and the pelvis with what appears to be a cirrhotic appearing liver and splenomegaly. There is significant small bowel wall thickening throughout the lower abdomen and the upper pelvis without evidence of obstruction Milo Muhammad MD Abdomen X-Ray 05/08/17 0000 Signed Impressions: Service Date/Time: Monday, May 08, 2017 15:30 - CONCLUSION: 1. There is diffuse, mild gaseous distention of the small bowel. No findings to indicate obstruction. Mihir Harry MD Liver Ultrasound 04/15/17 0000 Signed Impressions: Service Date/Time: Saturday, April 15, 2017 09:24 - CONCLUSION: 1. Abnormal appearance of the pancreas with a nonspecific hypoechoic area involving the posterior part of the pancreas along the head and body region. Recommend CT scan of the abdomen with oral and IV contrast further evaluation. 2. Fatty infiltration throughout the liver. 3. There is thickening of the gallbladder wall at 6 mm. This is suggestive of chronic gallbladder disease. 4. Small amount of free fluid adjacent to the liver and spleen in the upper abdomen.. 5. Right-sided pleural effusion. Víctor Rosas MD Head CT 04/12/17 0000 Signed Impressions: Service Date/Time: Wednesday, April 12, 2017 21:30 - CONCLUSION: Pontine encephalomalacia. Left mastoiditis. Casper Alva MD Head Magnetic Resonance Angiography 03/28/17 0000 Signed Impressions: Service Date/Time: March 17:22 - CONCLUSION: Unremarkable examination. KShiv Castillo MD Brain MRI 03/28/17 0000 Signed Impressions: Service Date/Time: March 17:22 - CONCLUSION: 1. 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 Small subacute ischemic bilateral thalamic infarcts. 2. There has been no significant change when compared to the prior exam. Yinka Harman MD Lower Extremity Ultrasound 03/25/17 0000 Signed Impressions: Service Date/Time: Saturday, March 25, 2017 22:17 - CONCLUSION: No evidence of DVT. Víctor Rosas MD CT Angiography 03/21/17 0000 Signed Impressions: Service Date/Time: March 00:33 - CONCLUSION: No evidence of pulmonary embolism is identified. Mild atelectasis left lung base. Fluid or phlegm within the trachea. Milo Muhammad MD Abdomen Ultrasound 03/20/17 0000 Signed Impressions: Service Date/Time: Monday, March 20, 2017 11:38 - CONCLUSION: 1. Hepatosplenomegaly without focal lesion. 2. Probable sludge within the lumen of the gallbladder. No intrahepatic duct. Cheo Martínez MD Shoulder X-Ray 03/02/17 1404 Signed Impressions: Service Date/Time: Thursday, March 02, 2017 15:18 - CONCLUSION: No evidence of recent bony injury. Deformity of the lateral left clavicle suggests old healed trauma. Cheo Martínez MD Maxillofacial CT 03/02/17 1342 Signed Impressions: Service Date/Time: Thursday, March 02, 2017 14:52 - CONCLUSION: Negative CT of the facial bones. Cheo Martínez MD Chest CT 03/02/17 1342 Signed Impressions: Service Date/Time: Thursday, March 02, 2017 15:04 - CONCLUSION: 1. Abnormal appearance of the lateral left clavicle suggesting a combination of acute and chronic bony injury. Fracture lucencies without bridging callus is seen the region of the coracoid process. 2. The lungs are clear. No evidence of pneumothorax. 3. Moderate size hiatus hernia. Cheo Martínez MD Cervical Spine CT 03/02/17 1342 Signed Impressions: Service Date/Time: Thursday, March 02, 2017 14:52 - CONCLUSION: Negative CT cervical spine. Cheo Martínez MD Objective Remarks GENERAL: Laying abed, in NAD. Pt speaking as t-tube is capped. SKIN: Warm and dry. was not able to visualized reported wound site at stoma due to presence of T-piece. HEAD: Normocephalic. EYES: No scleral icterus. No injection or drainage. NECK: Supple, trachea midline. No lymphadenopathy. T-piece in place. CARDIOVASCULAR: Regular rate and rhythm without murmurs, gallops, or rubs. RESPIRATORY: Breath sounds equal bilaterally.No rhonchi or wheezes noted. No accessory muscle use. GASTROINTESTINAL: Abdomen soft, non-tender, nondistended. MUSCULOSKELETAL: No cyanosis, or edema. PSYCHOLOGICAL: A&O x3, no overt signs/symptoms of depression and/or anxiety.Speech clear and fluent. Procedures 03/02/2017 - arterial line and central line placement. 03/25/2017 - central line placement and intubation Medications and IVs Current Medications Medications (Trade) Dose Ordered Sig/Mae Route Start Time Stop Time Status Last Admin (Tears Naturale Opth Soln) 1 drop TID EACH EYE 03/20/17 09:00 05/31/17 13:19 (Zofran Inj) 4 mg Q6H PRN IV 03/20/17 07:30 05/25/17 05:17 (Senokot) 17.2 mg Q12H PRN PO 03/20/17 07:30 (Bactroban Nasal 2% Oint) Taper BID EACH NARE 03/20/17 09:00 03/16/18 08:59 05/31/17 08:59 (Lactinex) 1 tab TID PO 03/24/17 18:00 05/31/17 13:19 (NS Flush) UNSCH PRN IVF 03/25/17 10:15 05/30/17 10:09 (Peridex 0.12% Liq) 15 ml BID@08,20 MT 03/25/17 20:00 05/31/17 08:57 (Tylenol) 500 mg Q6H PRN PO 04/01/17 23:15 05/12/17 09:54 (Colace Liq) 100 mg Q12HR PO 04/03/17 21:00 Hold 04/13/17 11:42 (Mycostatin Powder) 1 applic Q12HR TOPICAL 04/03/17 21:00 05/31/17 09:00 (Vitamin B1) 100 mg DAILY PO 04/05/17 09:00 05/31/17 09:00 (Ativan Inj) 1 mg Q2H PRN IV PUSH 04/13/17 11:00 04/19/17 17:41 (Mag-Ox) 800 mg UNSCH PRN PO 04/14/17 18:00 (Prevacid Odt) 30 mg DAILY NG 04/27/17 09:00 05/31/17 08:59 (Keppra Liq) 1,000 mg Q12HR NG 04/27/17 21:00 05/31/17 08:59 (Heparin Inj) 5,000 units Q12HR SQ 04/27/17 21:00 05/31/17 09:00 (Dakin'S 0.125% Soln) 100 ml DAILY TOPICAL 05/02/17 12:00 05/31/17 09:00 (Lactulose Liq) 30 ml Q12H PRN PO 05/10/17 17:00 (Roxanol Liq) 5 mg Q4H PRN G-TUBE 05/12/17 14:45 05/31/17 10:58 (Folate) 1 mg DAILY PEG 05/21/17 09:00 05/31/17 08:59 (Lasix) 40 mg DAILY PO 05/27/17 09:00 05/30/17 10:08 (Benadryl Liq) 12.5 mg Q4H PRN PO 05/27/17 19:15 05/31/17 10:58 Urinary Catheter: Yes Assessment to: Continue Johns insert reason: Prolonged Immobilization Date of Insertion: May 14, 2017 A/P Problem List: (1) Chronic hyponatremia ICD Code: E87.1 Status: Acute (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 Sandhu is a 61 year old male with a history of alcohol abuse, severe hypernatremia who presented to the ED on 03/02/2017 due to worsening fatigue, weakness that started 13 days prior to this hospitalization. He was found to have significant delirium. He admitted to drinking alcohol as well as taking xanax as well. ED work up indicated Na 99, Bilirubin 8.9, Lactate 9.8, Ammonia 60, CK 7000, troponin 4.9, Creatinine 1.5, bicarb 13. His WBC was 12, Platelets 112, INR 1.9. Meld score 26. He was severely hydrated. Patient was started on isotonic saline in an effort to improve hypovolemia. Patients sodium corrected too rapidly. Patient was treated for distributive shock, alcohol withdrawal and electrolyte imbalances in the ICU. 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 - Continue Keppra 1000 mg every 12 hours. - Lorazepam 1 mg every 12 hours PO for seizures. - Labs ordered. Alcoholic liver disease Alcohol dependence Lower extremity thigh edema, improving - CT abdomen shows liver cirrhosis. - DCd rifaximin. Monitor neuro status. - Continue folic acid and thiamine. - Lower thigh edema assessed today and improving. - Furosemide 40 mg PO daily starting tomorrow. - Monitor UO, electrolytes and intake closely while on diuretics. Acute hypoxemic and hypercapnic respiratory failure - Status post tracheostomy on 04/16/2017. Pulmonology following. - Levsin available PRN for increased tracheal secretions. - Continue Duonebs scheduled. Urinary tract infection, resolved. - Urine culture + Klebsiella pneumoniae and Enterococcus faecalis. - DC'ed ceftriaxone, course completed. Diarrhea, resolved: C difficile recheck negative. Chronic pain: Continue Roxanol 5 mg PO q4h PRN per pain scale. -RN reported on 05/27/17 pt was declining morphine because of itching. Benadryl 12.5 mg ordered to be given with Roxanol to address itching, GI prophylaxis: Prevacid DVT Prophylaxis: Heparin subcutaneous. Full code. Case discussed with pt, RN (Lesley) and Dr. Sebastian. Discharge Planning Per notes: 05/27/17 Spoke with pt and informed him of the rehab search he is aware the payor source has minimum benefits. Pt informed [facility] that his dtr is suppose to get out Oct or Nov. Pt asked [facility] to call friend Guillermo ([phone]) to bring anant but Guillermo states he has not rec'd mail as of yet. Pt states he plans to get better and if the mucus is controlled he thinks he can get trach capped. Rec'd calls from both [facility] and [facility] and both have declined pat stating tghis pt will be to expensive for what medicaid would reimburse them. If pt condition upgrades facility will take another look at pt. Pt was placed on [facility] today 05/22/17. Pt is going to be a difficult placement due to payor source and level of care at this time. Referral given to [facility] ([phone]) and [facility] ([phone]). 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 DEB May 31, 2017 14:21
--- NOTE | 2017-05-31 19:55 | HHI.PR ---
Subjective Remarks 61 YOWM with RF, s/p trach On PMV tolerates well Denies sob no fever Objective Vital Signs Vital Signs Date Time Temp Pulse Resp B/P Pulse Ox O2 Delivery O2 Flow Rate FiO2 05/31/17 16:00 98.5 88 18 124/78 99 05/31/17 12:00 98.2 92 20 100/60 93 05/31/17 08:32 Venturi Mask 28 05/31/17 08:32 96 T-piece 28 05/31/17 08:00 98.9 96 20 102/55 96 05/31/17 08:00 92 05/31/17 08:00 T-Piece 5.00 28 05/31/17 04:55 98.9 97 18 128/63 97 05/31/17 01:15 18 05/30/17 23:37 98.0 94 18 111/64 98 05/30/17 22:05 T-Piece 5.00 05/30/17 20:58 97.8 88 18 111/67 97 05/30/17 20:16 89 I/O 05/30/17 05/30/17 05/30/17 05/31/17 05/31/17 05/31/17 07:00 15:00 23:00 07:00 15:00 23:00 Intake Total 790 ml 0 ml 0 ml 1719 ml Output Total 475 ml 1500 ml 600 ml 300 ml Balance 315 ml -1500 ml -600 ml -300 ml 1719 ml Intake Oral 0 ml 0 ml 0 ml IV Total 8 ml Tube Feeding 540 ml 1711 ml Other 250 ml Output Urine Total 475 ml 1500 ml 600 ml 300 ml # Bowel Movements 0 0 0 0 Result Diagram: 05/31/1758 05/31/17 0858 Objective Remarks GENERAL: MBMN WM, NAD SKIN: Warm and dry. HEAD: Normocephalic. EYES: No scleral icterus. No injection or drainage. NECK: Supple, trachea midline. No JVD or lymphadenopathy. has Trach CARDIOVASCULAR: Regular rate and rhythm without murmurs, gallops, or rubs. RESPIRATORY: Breath sounds equal bilaterally. No accessory muscle use. GASTROINTESTINAL: Abdomen soft, non-tender, nondistended. MUSCULOSKELETAL: No cyanosis, or edema. BACK: Nontender without obvious deformity. No CVA tenderness. A/P Assessment and Plan RF,S/P Trach COPD ? Aspiration PLAN: Trach care Cont PMV Aerosol nebs Cont Abx Brandon Harris MD May 31, 2017 19:55
[2017-05-31] MEDS ORDERED: levETIRAcetam 1000 MG INJ 100 ML IV ONE (20:45)
[2017-06-01] VITALS (7 sets, daily range): BP systolic 97–111; BP diastolic 55–65; PULSE 80–98; RESP 18–20; TEMP 97–98.9; O2SAT 95–100
[2017-06-01 07:49] LABS: BICARBONATE 27.9 MEQ/L (21.0-32.0); POTASSIUM 4.2 MEQ/L (3.5-5.1)
[2017-06-01] MEDS ORDERED: FUROSEMIDE 40 MG/4 ML VIAL IV PUSH ONE (08:30)
[2017-06-01] MEDS: LANSOPRAZOLE SOLUTAB 30 MG TAB NG SCH (09:00)
[2017-06-01] MEDS: MUPIROCIN 2% OINT 1 APPLIC/GM SYR EACH NARE SCH ×2 (09:00→20:56)
[2017-06-01] MEDS: THIAMINE HCL 100 MG TAB PO SCH (09:00)
[2017-06-01] MEDS: FOLIC ACID 1 MG TAB PEG SCH (09:00)
[2017-06-01] MEDS: LACTOBACILLUS ACIDOPHILUS TAB PO SCH ×3 (09:00→18:40)
[2017-06-01] MEDS: HEPARIN SODIUM - SQ 10,000 UNITS/ML VIAL SQ SCH ×3 (09:00→20:57)
[2017-06-01] MEDS: FUROSEMIDE 40 MG TAB PO SCH (09:00)
[2017-06-01] MEDS: RESP: ALBUTEROL 2.5 MG/IPRATROPIUM 0.5 MG NEB (SCH) INH ×3 (09:03→20:01)
[2017-06-01] MEDS: RESP: ACETYLCYSTEINE 20% 30 ML NEB NEB SCH ×3 (09:04→20:01)
[2017-06-01] MEDS: MORPHINE SULFATE 8 MG/ML INJ IV PUSH PRN ×4 (09:56→22:29)
[2017-06-01] MEDS: levETIRAcetam 1000 MG INJ 100 ML IV SCH ×2 (09:56→21:02)
[2017-06-01] MEDS: CHLORHEXIDINE 0.12% (ORAL KIT) 15 ML CUP MT SCH ×2 (09:57→20:00)
[2017-06-01] MEDS: SODIUM HYPOCHLORITE 0.125% 500 ML BTL TOPICAL SCH (09:57)
[2017-06-01] MEDS: ARTIFICIAL TEARS OPTH SOLN 15 ML BTL EACH EYE SCH ×3 (09:57→18:00)
[2017-06-01] MEDS: NYSTATIN 100,000 U/GM PWD 15 GM BTL TOPICAL SCH ×2 (10:01→20:57)
--- NOTE | 2017-06-01 11:32 | HHI.GIFU ---
Subjective Remarks GI reconsulted for evaluation of PEG site. Pts peg was accidentally dislodged last night. Pt complains of pain at the previous PEG site and there is noted purulent drainage and erythema of the surrounding skin at the insertion site. Pt has been solely nourished with TF and was tolerating Jevity 1.5 @ 60mL/hr Pt is afebrile. (Kay Ariza) Objective Vitals I&O Vital Signs Date Time Temp Pulse Resp B/P Pulse Ox O2 Delivery O2 Flow Rate FiO2 06/01/17 10:15 21 06/01/17 08:00 98.1 80 20 110/65 100 06/01/17 04:00 98.3 85 20 97/57 100 06/01/17 00:00 98.9 83 20 98/56 100 05/31/17 21:35 26 05/31/17 21:23 94 Trach Collar 28 05/31/17 20:20 89 05/31/17 20:00 98.5 93 20 97/60 95 05/31/17 16:00 98.5 88 18 124/78 99 05/31/17 12:00 98.2 92 20 100/60 93 I/O 05/31/17 05/31/17 05/31/17 06/01/17 06/01/17 06/01/17 07:00 15:00 23:00 07:00 15:00 23:00 Intake Total 0 ml 1719 ml 600 ml Output Total 300 ml 125 ml 500 ml Balance -300 ml 1719 ml -125 ml 100 ml Intake Oral 0 ml 520 ml IV Total 8 ml 80 ml Tube Feeding 1711 ml Output Urine Total 300 ml 125 ml 500 ml # Bowel Movements 0 0 Laboratory Laboratory Tests Test 06/01/17 06:37 Sodium Level 134 Potassium Level 4.2 Chloride Level 100 Carbon Dioxide Level 27.9 Anion Gap 6 Blood Urea Nitrogen 9 Creatinine 0.28 Estimat Glomerular Filtration 332 Rate Random Glucose 87 Calcium Level 9.0 Date/Time Procedure Status Source Growth 05/30/17 03:10 Gram Stain - Final Resulted Sputum Endotracheal 05/30/17 03:10 Sputum Culture - Preliminary Resulted Gram Negative [facility] Last Impressions Chest X-Ray 05/16/17 0000 Signed Impressions: Service Date/Time: May 12:56 - CONCLUSION: Improving lung aeration with decreasing air space disease. Persistent left basilar consolidation. Carlos Galindo MD Abdomen/Pelvis CT 05/08/17 Signed Impressions: Service Date/Time: Monday, May 08, 2017 23:10 - CONCLUSION: Significant fluid throughout the abdomen and the pelvis with what appears to be a cirrhotic appearing liver and splenomegaly. There is significant small bowel wall thickening throughout the lower abdomen and the upper pelvis without evidence of obstruction Milo Muhammad MD Abdomen X-Ray 05/08/17 Signed Impressions: Service Date/Time: Monday, May 08, 2017 15:30 - CONCLUSION: 1. There is diffuse, mild gaseous distention of the small bowel. No findings to indicate obstruction. Mihir Harry MD Liver Ultrasound 04/15/17 Signed Impressions: Service Date/Time: Saturday, April 15, 2017 09:24 - CONCLUSION: 1. Abnormal appearance of the pancreas with a nonspecific hypoechoic area involving the posterior part of the pancreas along the head and body region. Recommend CT scan of the abdomen with oral and IV contrast further evaluation. 2. Fatty infiltration throughout the liver. 3. There is thickening of the gallbladder wall at 6 mm. This is suggestive of chronic gallbladder disease. 4. Small amount of free fluid adjacent to the liver and spleen in the upper abdomen.. 5. Right-sided pleural effusion. Víctor Rosas MD Head CT 04/12/17 0000 Signed Impressions: Service Date/Time: Wednesday, April 12, 2017 21:30 - CONCLUSION: Pontine encephalomalacia. Left mastoiditis. Casper Alva MD Head Magnetic Resonance Angiography 03/28/17 Signed Impressions: Service Date/Time: March 17:22 - CONCLUSION: Unremarkable examination. Bety Castillo MD Brain MRI 03/28/17 Signed Impressions: Service Date/Time: March 17:22 - CONCLUSION: 1. 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 Small subacute ischemic bilateral thalamic infarcts. 2. There has been no significant change when compared to the prior exam. Yinka Harman MD Lower Extremity Ultrasound 03/25/17 0000 Signed Impressions: Service Date/Time: Saturday, March 25, 2017 22:17 - CONCLUSION: No evidence of DVT. Víctor Rosas MD CT Angiography 03/21/17 0000 Signed Impressions: Service Date/Time: March 00:33 - CONCLUSION: No evidence of pulmonary embolism is identified. Mild atelectasis left lung base. Fluid or phlegm within the trachea. Milo Muhammad MD Abdomen Ultrasound 03/20/17 0000 Signed Impressions: Service Date/Time: Monday, March 20, 2017 11:38 - CONCLUSION: 1. Hepatosplenomegaly without focal lesion. 2. Probable sludge within the lumen of the gallbladder. No intrahepatic duct. Cheo Martínez MD Shoulder X-Ray 03/02/17 1404 Signed Impressions: Service Date/Time: Thursday, March 02, 2017 15:18 - CONCLUSION: No evidence of recent bony injury. Deformity of the lateral left clavicle suggests old healed trauma. Cheo Martínez MD Maxillofacial CT 03/02/17 1342 Signed Impressions: Service Date/Time: Thursday, March 02, 2017 14:52 - CONCLUSION: Negative CT of the facial bones. Cheo Martínez MD Chest CT 03/02/17 1342 Signed Impressions: Service Date/Time: Thursday, March 02, 2017 15:04 - CONCLUSION: 1. Abnormal appearance of the lateral left clavicle suggesting a combination of acute and chronic bony injury. Fracture lucencies without bridging callus is seen the region of the coracoid process. 2. The lungs are clear. No evidence of pneumothorax. 3. Moderate size hiatus hernia. Cheo Martínez MD Cervical Spine CT 03/02/17 1342 Signed Impressions: Service Date/Time: Thursday, March 02, 2017 14:52 - CONCLUSION: Negative CT cervical spine. Cheo Martínez MD Physical Exam HEENT: EOMI Normocephalic; atraumatic; CHEST: Coarse sounds CARDIAC: RRR ABDOMEN: +BS, soft, mildly distended, previous peg site wound with erythema, purulent drainage and tenderness. EXTREMITIES: BLE 2+ pitting edema, general edema SKIN: no rash; no jaundice. 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 Pt had a previous PEG tube placed on 04/15/[address] Curran. PEG was accidentally dislodged on 05/31/17. Site looks possibly infected with erythema od the surrounding skin, purulent drainage and tenderness around the previous insertion site. He had been tolerating TF well prior to this with Jevity 1.5 @ 60mL/hr - Alcoholic liver disease/evidence of cirrhosis. Pt with hx of alcohol abuse. MELD 25. CT Abd/pelvis (05-08-17) --> significant fluid throughout abdomen and pelvis with what appears to be cirrhotic looking liver and splenomegaly, significant sm bowel wall thickening throughout lower abd and upper pelvis w/o evidence obstruction. LFTs last checked on 05/12 were stable. - Coagulopathy. improving PT 12.6, INR 1.1 (04/15). - Anemia. HH stable. No active bleeding. - Resp. Failure/PNA. Trach capped. Pt with a lot of secretions. 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 thalamic CVA. S/P Neuro eval. Lactulose, Xifaxan. - Leukocytosis with UTI (S/P Tx), PNA. Sputum culture on 05/30 growing gram negative rods. Management per attending. - CHF, Hx hypothyroidism per CCM PLAN: - Pt will be unable to have PEG replaced until infection at previous site is treated and improved. - Ask ST to re-evaluate and if unable to take po then pt will need NGT or Dobbhoff placement for continued nutrition - Nurse to attempt bedside placement of NGT - Once NGT is placed resume previous TF orders - Culture wound site - Start Levaquin IV 500mg daily as pt unable to take po meds - Monitor wound site for any progression - Continue with current supportive care and monitor labs - Pt was seen and examined by myself and Dr. Durham, this note was written on his behalf. (Kay Ariza) Physician Comments Patient seen and examined Agree with above Continue with current supportive care Monitor labs (Miko Durham MD) Kay Ariza Jun 01, 2017 11:32 Miko Durham MD Jun 01, 2017 19:06
[2017-06-01] MEDS: LEVOFLOXACIN 500 MG PREMIX INJ 100 ML IV SCH (12:09)
--- NOTE | 2017-06-01 15:48 | HHI.PR ---
Subjective Remarks 61 YOWM with RF, s/p trach On PMV tolerates well Denies sob no fever no new complaint Objective Vital Signs Vital Signs Date Time Temp Pulse Resp B/P Pulse Ox O2 Delivery O2 Flow Rate FiO2 06/01/17 12:00 97.0 82 20 111/65 99 06/01/17 10:15 21 06/01/17 08:00 98.1 80 20 110/65 100 06/01/17 08:00 83 06/01/17 04:00 98.3 85 20 97/57 100 06/01/17 00:00 98.9 83 20 98/56 100 05/31/17 21:35 26 05/31/17 21:23 94 Trach Collar 28 05/31/17 20:20 89 05/31/17 20:00 98.5 93 20 97/60 95 05/31/17 16:00 98.5 88 18 124/78 99 I/O 05/31/17 05/31/17 05/31/17 06/01/17 06/01/17 06/01/17 07:00 15:00 23:00 07:00 15:00 23:00 Intake Total 0 ml 1719 ml 600 ml 208 ml Output Total 300 ml 125 ml 500 ml Balance -300 ml 1719 ml -125 ml 100 ml 208 ml Intake Oral 0 ml 520 ml IV Total 8 ml 80 ml 208 ml Tube Feeding 1711 ml Output Urine Total 300 ml 125 ml 500 ml # Bowel Movements 0 0 Result Diagram: 05/31/17 0858 06/01/17 0637 Objective Remarks GENERAL: MBMN WM, NAD SKIN: Warm and dry. HEAD: Normocephalic. EYES: No scleral icterus. No injection or drainage. NECK: Supple, trachea midline. No JVD or lymphadenopathy. has Trach CARDIOVASCULAR: Regular rate and rhythm without murmurs, gallops, or rubs. RESPIRATORY: Breath sounds equal bilaterally. No accessory muscle use. GASTROINTESTINAL: Abdomen soft, non-tender, nondistended. MUSCULOSKELETAL: No cyanosis, or edema. BACK: Nontender without obvious deformity. No CVA tenderness. A/P Assessment and Plan RF,S/P Trach COPD ? Aspiration PLAN: Trach care Cont PMV Aerosol nebs Cont Abx Brandon Harris MD Jun 01, 2017 15:48
--- NOTE | 2017-06-01 16:54 | HHI.PR ---
Subjective Remarks Follow-up for hyponatremia, osmotic demyelination syndrome. Patient seen and examined today, lying in bed, NAD and speaking. Patient voiced having back pain as well as abdominal pain at site where PEG tube came out overnight. Denies cough, shortness of breath, NVD,poor sleep, bloody urine or stool. Per RN (Monie) no new issues developed over night (except as noted above) or since start of shift. Objective Vitals Vital Signs Date Time Temp Pulse Resp B/P Pulse Ox O2 Delivery O2 Flow Rate FiO2 06/01/17 12:00 97.0 82 20 111/65 99 06/01/17 10:15 21 06/01/17 08:00 98.1 80 20 110/65 100 06/01/17 08:00 83 06/01/17 04:00 98.3 85 20 97/57 100 06/01/17 00:00 98.9 83 20 98/56 100 05/31/17 21:35 26 05/31/17 21:23 94 Trach Collar 28 05/31/17 20:20 89 05/31/17 20:00 98.5 93 20 97/60 95 I/O 05/31/17 05/31/17 05/31/17 06/01/17 06/01/17 06/01/17 07:00 15:00 23:00 07:00 15:00 23:00 Intake Total 0 ml 1719 ml 600 ml 208 ml Output Total 300 ml 125 ml 500 ml Balance -300 ml 1719 ml -125 ml 100 ml 208 ml Intake Oral 0 ml 520 ml IV Total 8 ml 80 ml 208 ml Tube Feeding 1711 ml Output Urine Total 300 ml 125 ml 500 ml # Bowel Movements 0 0 Result Diagram: 05/31/17 0858 06/01/17 0637 Objective Remarks GENERAL: Laying abed, in NAD. Pt speaking as t-tube is capped. SKIN: Warm and dry. was not able to visualized reported wound site at stoma due to presence of T-piece. HEAD: Normocephalic. EYES: No scleral icterus. No injection or drainage. NECK: Supple, trachea midline. No lymphadenopathy. T-piece in place. CARDIOVASCULAR: Regular rate and rhythm without murmurs, gallops, or rubs. RESPIRATORY: Breath sounds equal bilaterally.No rhonchi or wheezes noted. No accessory muscle use. GASTROINTESTINAL: Abdomen soft, non-tender, nondistended. MUSCULOSKELETAL: No cyanosis, or edema. PSYCHOLOGICAL: A&O x3, no overt signs/symptoms of depression and/or anxiety.Speech clear and fluent. Procedures 03/02/2017 - arterial line and central line placement. 03/25/2017 - central line placement and intubation Medications and IVs Current Medications Medications (Trade) Dose Ordered Sig/Mae Route Start Time Stop Time Status Last Admin (Tears Naturale Opth Soln) 1 drop TID EACH EYE 03/20/17 09:00 06/01/17 12:09 (Zofran Inj) 4 mg Q6H PRN IV 03/20/17 07:30 05/25/17 05:17 (Senokot) 17.2 mg Q12H PRN PO 03/20/17 07:30 (Bactroban Nasal 2% Oint) Taper BID EACH NARE 03/20/17 09:00 03/16/18 08:59 05/31/17 21:32 (Lactinex) 1 tab TID PO 03/24/17 18:00 06/01/17 12:07 (NS Flush) UNSCH PRN IVF 03/25/17 10:15 05/30/17 10:09 (Peridex 0.12% Liq) 15 ml BID@08,20 MT 03/25/17 20:00 06/01/17 09:57 (Tylenol) 500 mg Q6H PRN PO 04/01/17 23:15 05/12/17 09:54 (Colace Liq) 100 mg Q12HR PO 04/03/17 21:00 Hold 04/13/17 11:42 (Mycostatin Powder) 1 applic Q12HR TOPICAL 04/03/17 21:00 06/01/17 10:01 (Vitamin B1) 100 mg DAILY PO 04/05/17 09:00 05/31/17 09:00 (Ativan Inj) 1 mg Q2H PRN IV PUSH 04/13/17 11:00 04/19/17 17:41 (Mag-Ox) 800 mg UNSCH PRN PO 04/14/17 18:00 (Prevacid Odt) 30 mg DAILY NG 04/27/17 09:00 05/31/17 08:59 (Keppra Liq) 1,000 mg Q12HR NG 04/27/17 21:00 Hold 05/31/17 08:59 (Heparin Inj) 5,000 units Q12HR SQ 04/27/17 21:00 06/01/17 12:10 (Dakin'S 0.125% Soln) 100 ml DAILY TOPICAL 05/02/17 12:00 06/01/17 09:57 (Lactulose Liq) 30 ml Q12H PRN PO 05/10/17 17:00 (Roxanol Liq) 5 mg Q4H PRN G-TUBE 05/12/17 14:45 05/31/17 18:43 (Folate) 1 mg DAILY PEG 05/21/17 09:00 05/31/17 08:59 (Lasix) 40 mg DAILY PO 05/27/17 09:00 05/30/17 10:08 (Benadryl Liq) 12.5 mg Q4H PRN PO 05/27/17 19:15 05/31/17 18:43 Morphine Sulfate 5 mg 5 mg Q4H PRN IV PUSH 06/01/17 07:45 06/01/17 14:35 (Keppra 1000 Mg Inj) 100 ml @ 400 mls/hr Q12HR IV 06/01/17 09:00 06/01/17 09:56 Diphenhydramine HCl 12.5 mg 12.5 mg Q4H PRN IV 06/01/17 09:15 (Levaquin 500 Mg Premix Inj) 100 ml @ 100 mls/hr Q24H IV 06/01/17 12:00 06/01/17 12:09 Urinary Catheter: Yes Assessment to: Continue Johns insert reason: Prolonged Immobilization Date of Insertion: May 14, 2017 A/P Problem List: (1) Chronic hyponatremia ICD Code: E87.1 Status: Acute (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 Sandhu is a 61 year old male with a history of alcohol abuse, severe hypernatremia who presented to the ED on 03/02/2017 due to worsening fatigue, weakness that started 13 days prior to this hospitalization. He was found to have significant delirium. He admitted to drinking alcohol as well as taking xanax as well. ED work up indicated Na 99, Bilirubin 8.9, Lactate 9.8, Ammonia 60, CK 7000, troponin 4.9, Creatinine 1.5, bicarb 13. His WBC was 12, Platelets 112, INR 1.9. Meld score 26. He was severely hydrated. Patient was started on isotonic saline in an effort to improve hypovolemia. Patients sodium corrected too rapidly. Patient was treated for distributive shock, alcohol withdrawal and electrolyte imbalances in the ICU. 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 - Continue Keppra 1000 mg every 12 hours. - Lorazepam 1 mg every 12 hours PO for seizures. - Labs ordered. Alcoholic liver disease Alcohol dependence Lower extremity thigh edema, improving - CT abdomen shows liver cirrhosis. - DCd rifaximin. Monitor neuro status. - Continue folic acid and thiamine. - Lower thigh edema assessed today and improving. - Furosemide 40 mg PO daily starting tomorrow. - Monitor UO, electrolytes and intake closely while on diuretics. Acute hypoxemic and hypercapnic respiratory failure - Status post tracheostomy on 04/16/2017. Pulmonology following. - Levsin available PRN for increased tracheal secretions. - Continue Duonebs scheduled. Urinary tract infection, resolved. - Urine culture + Klebsiella pneumoniae and Enterococcus faecalis. - DC'ed ceftriaxone, course completed. PEG tube pulled out -GI consulted to replace, awaiting their input. -Essential medications have been changed from PEG to IV administration. -Pt is NPO at this time. Diarrhea, resolved: C difficile recheck negative. Chronic pain: Continue Roxanol 5 mg PO q4h PRN per pain scale. -RN reported on 05/27/17 pt was declining morphine because of itching. Benadryl 12.5 mg ordered to be given with Roxanol to address itching, GI prophylaxis: Prevacid DVT Prophylaxis: Heparin subcutaneous. Full code. Case discussed with pt, TIERRA (Monie) and Dr. Sebastian. Discharge Planning Per notes: 05/27/17 Spoke with pt and informed him of the rehab search he is aware the payor source has minimum benefits. Pt informed [facility] that his dtr is suppose to get out Oct or Nov. Pt asked [facility] to call friend Guillermo ([phone]) to bring anant but Guillermo states he has not rec'd mail as of yet. Pt states he plans to get better and if the mucus is controlled he thinks he can get trach capped. Rec'd calls from both [facility] and [facility] and both have declined pat stating tghis pt will be to expensive for what medicaid would reimburse them. If pt condition upgrades facility will take another look at pt. Pt was placed on [facility] [place] today 05/22/17. Pt is going to be a difficult placement due to payor source and level of care at this time. Referral given to [facility] ([phone]) and [facility] ([phone]). Patient has been declined by: [facility] rehab, [facility], [facility], [facility], [facility], [facility], and [facility] Pt dtr is crew person Amie Sandhu who is presently in the [facility] ([phone]) booking number #[phone], also brother Humberto Edson ([phone]) Graeme Werner [facility] Kevyn Milan Jr. Jun 01, 2017 16:54
[2017-06-01] MEDS: diphenhydrAMINE HCL 50 MG/ML VIAL IV PRN (22:52)
[2017-06-02] VITALS (9 sets, daily range): BP systolic 90–113; BP diastolic 50–64; PULSE 77–89; RESP 18–20; TEMP 97.1–98.4; O2SAT 95–98
[2017-06-02] MEDS: diphenhydrAMINE HCL 50 MG/ML VIAL IV PRN ×3 (04:15→22:49)
[2017-06-02] MEDS: MORPHINE SULFATE 8 MG/ML INJ IV PUSH PRN ×4 (04:16→22:49)
[2017-06-02] MEDS: RESP: ACETYLCYSTEINE 20% 30 ML NEB NEB SCH ×2 (07:43→12:20)
[2017-06-02] MEDS: RESP: ALBUTEROL 2.5 MG/IPRATROPIUM 0.5 MG NEB (SCH) INH ×2 (07:43→12:20)
[2017-06-02] MEDS: CHLORHEXIDINE 0.12% (ORAL KIT) 15 ML CUP MT SCH ×2 (08:00→20:00)
[2017-06-02] MEDS: MUPIROCIN 2% OINT 1 APPLIC/GM SYR EACH NARE SCH ×2 (09:00→21:00)
[2017-06-02] MEDS: FUROSEMIDE 40 MG TAB PO SCH (09:00)
[2017-06-02] MEDS: LACTOBACILLUS ACIDOPHILUS TAB PO SCH ×3 (09:25→17:30)
[2017-06-02] MEDS: levETIRAcetam 1000 MG INJ 100 ML IV SCH ×2 (09:25→22:48)
[2017-06-02] MEDS: THIAMINE HCL 100 MG TAB PO SCH (09:25)
[2017-06-02] MEDS: FOLIC ACID 1 MG TAB PEG SCH (09:25)
[2017-06-02] MEDS: LANSOPRAZOLE SOLUTAB 30 MG TAB NG SCH (09:26)
[2017-06-02] MEDS: HEPARIN SODIUM - SQ 10,000 UNITS/ML VIAL SQ SCH ×2 (09:26→22:49)
[2017-06-02] MEDS: ARTIFICIAL TEARS OPTH SOLN 15 ML BTL EACH EYE SCH ×3 (09:31→17:30)
[2017-06-02] MEDS: NYSTATIN 100,000 U/GM PWD 15 GM BTL TOPICAL SCH ×2 (09:31→21:00)
[2017-06-02] MEDS: SODIUM HYPOCHLORITE 0.125% 500 ML BTL TOPICAL SCH (09:31)
[2017-06-02] MEDS ORDERED: SODIUM CHLORID 0.9% 500 ML INJ 500 ML IV SCH (10:00)
[2017-06-02] MEDS: LEVOFLOXACIN 500 MG PREMIX INJ 100 ML IV SCH (12:13)
--- NOTE | 2017-06-02 15:22 | HHI.PR ---
Subjective Remarks Follow-up for hyponatremia, osmotic demyelination syndrome. Patient seen and examined today, lying in bed, NAD and speaking. Patient voiced having back pain as well as abdominal pain at site where PEG tube was recently dislodged. Pt spoke of being placed on solid diet yesterday and eating "felt good." Pt reported sore throat this morning. Denies cough, shortness of breath, NVD,poor sleep, bloody urine or stool. VSS, afebrile. Per RN (Monie) no new issues developed over night. Since start of shift she reported he is hypotensive. Objective Vitals Vital Signs Date Time Temp Pulse Resp B/P Pulse Ox O2 Delivery O2 Flow Rate FiO2 06/02/17 12:00 98.2 84 18 96/50 97 06/02/17 08:00 98.4 79 18 90/53 98 06/02/17 07:44 98 T-piece 28 06/02/17 04:00 T-Piece 6.00 28 06/02/17 04:00 97.7 82 20 111/64 98 06/02/17 00:00 98.3 89 18 105/62 95 06/02/17 00:00 T-Piece 6.00 28 06/01/17 20:07 97 T-piece 6.00 28 06/01/17 20:00 89 06/01/17 20:00 98.4 89 18 111/62 95 06/01/17 20:00 Room Air 06/01/17 16:00 98.6 98 18 100/55 99 I/O 06/01/17 06/01/17 06/01/17 06/02/17 06/02/17 06/02/17 07:00 15:00 23:00 07:00 15:00 23:00 Intake Total 600 ml 1408 ml 340 ml 120 ml 511 ml Output Total 500 ml 3300 ml 1000 ml 300 ml Balance 100 ml -1892 ml -660 ml -180 ml 511 ml Intake Oral 520 ml 1200 ml 240 ml 120 ml IV Total 80 ml 208 ml 100 ml 511 ml Output Urine Total 500 ml 3300 ml 1000 ml 300 ml # Bowel Movements 0 2 0 0 Result Diagram: 05/31/17 0858 06/01/17 0637 Objective Remarks GENERAL: Laying abed, in NAD. Pt speaking as t-tube is capped. SKIN: Warm and dry. Able to visualized reported wound site at stoma, bandage placed on chest covering wound. Scabs noted on left side of head. HEAD: Normocephalic. EYES: No scleral icterus. No injection or drainage. NECK: Supple, trachea midline. Lymphadenopathy noted right cervical chain, superior portion. T-piece in place. CARDIOVASCULAR: Regular rate and rhythm without murmurs, gallops, or rubs. RESPIRATORY: Breath sounds equal bilaterally.No rhonchi or wheezes noted. No accessory muscle use. GASTROINTESTINAL: Abdomen soft, non-tender, nondistended. Pt reported pain/ discomfort at former insertion site of PEG tube. MUSCULOSKELETAL: No cyanosis, or edema. PSYCHOLOGICAL: A&O x3, no overt signs/symptoms of depression and/or anxiety.Speech clear and fluent. Procedures 03/02/2017 - arterial line and central line placement. 03/25/2017 - central line placement and intubation Medications and IVs Current Medications Medications (Trade) Dose Ordered Sig/Mae Route Start Time Stop Time Status Last Admin (Tears Naturale Opth Soln) 1 drop TID EACH EYE 03/20/17 09:00 06/02/17 09:31 (Zofran Inj) 4 mg Q6H PRN IV 03/20/17 07:30 05/25/17 05:17 (Senokot) 17.2 mg Q12H PRN PO 03/20/17 07:30 (Bactroban Nasal 2% Oint) Taper BID EACH NARE 03/20/17 09:00 03/16/18 08:59 05/31/17 21:32 (Lactinex) 1 tab TID PO 03/24/17 18:00 06/02/17 12:14 (NS Flush) UNSCH PRN IVF 03/25/17 10:15 05/30/17 10:09 (Peridex 0.12% Liq) 15 ml BID@08,20 MT 03/25/17 20:00 06/01/17 20:00 (Tylenol) 500 mg Q6H PRN PO 04/01/17 23:15 05/12/17 09:54 (Colace Liq) 100 mg Q12HR PO 04/03/17 21:00 Hold 04/13/17 11:42 (Mycostatin Powder) 1 applic Q12HR TOPICAL 04/03/17 21:00 06/02/17 09:31 (Vitamin B1) 100 mg DAILY PO 04/05/17 09:00 06/02/17 09:25 (Ativan Inj) 1 mg Q2H PRN IV PUSH 04/13/17 11:00 04/19/17 17:41 (Mag-Ox) 800 mg UNSCH PRN PO 04/14/17 18:00 (Prevacid Odt) 30 mg DAILY NG 04/27/17 09:00 06/02/17 09:26 (Keppra Liq) 1,000 mg Q12HR NG 04/27/17 21:00 Hold 05/31/17 08:59 (Heparin Inj) 5,000 units Q12HR SQ 04/27/17 21:00 06/02/17 09:26 (Dakin'S 0.125% Soln) 100 ml DAILY TOPICAL 05/02/17 12:00 06/02/17 09:31 (Lactulose Liq) 30 ml Q12H PRN PO 05/10/17 17:00 (Roxanol Liq) 5 mg Q4H PRN G-TUBE 05/12/17 14:45 05/31/17 18:43 (Folate) 1 mg DAILY PEG 05/21/17 09:00 06/02/17 09:25 (Lasix) 40 mg DAILY PO 05/27/17 09:00 05/30/17 10:08 (Benadryl Liq) 12.5 mg Q4H PRN PO 05/27/17 19:15 05/31/17 18:43 Morphine Sulfate 5 mg 5 mg Q4H PRN IV PUSH 06/01/17 07:45 06/02/17 13:54 (Keppra 1000 Mg Inj) 100 ml @ 400 mls/hr Q12HR IV 06/01/17 09:00 06/02/17 09:25 Diphenhydramine HCl 12.5 mg 12.5 mg Q4H PRN IV 06/01/17 09:15 06/02/17 13:54 (Levaquin 500 Mg Premix Inj) 100 ml @ 100 mls/hr Q24H IV 06/01/17 12:00 06/02/17 12:13 (Chloraseptic [place]) 2 spray Q2H PRN OROPHARYNG 06/02/17 10:45 Urinary Catheter: Yes Assessment to: Continue Johns insert reason: Prolonged Immobilization Date of Insertion: May 14, 2017 A/P Problem List: (1) Chronic hyponatremia ICD Code: E87.1 Status: Acute (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 Sandhu is a 61 year old male with a history of alcohol abuse, severe hypernatremia who presented to the ED on 03/02/2017 due to worsening fatigue, weakness that started 13 days prior to this hospitalization. He was found to have significant delirium. He admitted to drinking alcohol as well as taking xanax as well. ED work up indicated Na 99, Bilirubin 8.9, Lactate 9.8, Ammonia 60, CK 7000, troponin 4.9, Creatinine 1.5, bicarb 13. His WBC was 12, Platelets 112, INR 1.9. Meld score 26. He was severely hydrated. Patient was started on isotonic saline in an effort to improve hypovolemia. Patients sodium corrected too rapidly. Patient was treated for distributive shock, alcohol withdrawal and electrolyte imbalances in the ICU. 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 - Continue Keppra 1000 mg every 12 hours. - Lorazepam 1 mg every 12 hours PO for seizures. - Labs ordered. Alcoholic liver disease Alcohol dependence Lower extremity thigh edema, improving - CT abdomen shows liver cirrhosis. - DCd rifaximin. Monitor neuro status. - Continue folic acid and thiamine. - Lower thigh edema assessed today and improving. - Furosemide 40 mg PO daily starting tomorrow. - Monitor UO, electrolytes and intake closely while on diuretics. -PT and OT services continue, endurance is currently poor/highly limited. Acute hypoxemic and hypercapnic respiratory failure - Status post tracheostomy on 04/16/2017. Pulmonology following. - Levsin available PRN for increased tracheal secretions. - Continue Duonebs scheduled. Urinary tract infection, resolved. - Urine culture + Klebsiella pneumoniae and Enterococcus faecalis. - DC'ed ceftriaxone, course completed. PEG tube pulled out -GI consulted to replace, awaiting their input. -Essential medications have been changed from PEG to IV administration. -Pt is NPO at this time. -GI saw pt on 06/01, noted infection at PEG site, feeding tube discontinued, pt placed on mechanical soft diet. -Levaquin initiated by GI to address infection. Pharyngitis: -Pt afebrile, VSS -Chloraseptic spray ordered Positive sputum culture: -Pseudomonas aeruginosa and Group D. Enterococcus -Discussed with Dr. Sebastian who felt sputum reflected colonization of infection and source or active infection. -Review of micro report indicated the Levaquin ordered by GI is effective against Pseudomonas. Diarrhea, resolved: C difficile recheck negative. Chronic pain: Continue Roxanol 5 mg PO q4h PRN per pain scale. -RN reported on 05/27/17 pt was declining morphine because of itching. Benadryl 12.5 mg ordered to be given with Roxanol to address itching, Hypotension -NS 500 ml q 100 -check vitals -hold pain medication for systolic less than 100 GI prophylaxis: Prevacid DVT Prophylaxis: Heparin subcutaneous. Full code. Case discussed with pt, RN (Monie) and Dr. Sebastian. Discharge Planning CM continues to work on placement. Tracheostomy continues to be a limiting factor. Kevyn Milan Jr. Jun 02, 2017 15:22
[2017-06-03] VITALS (8 sets, daily range): BP systolic 103–118; BP diastolic 61–74; PULSE 77–81; RESP 18–20; TEMP 97.9–98.3; O2SAT 93–99
[2017-06-03] MEDS: RESP: ALBUTEROL 2.5 MG/3 ML NEB (PRN) INH (00:13)
[2017-06-03] MEDS: CHLORHEXIDINE 0.12% (ORAL KIT) 15 ML CUP MT SCH ×2 (08:00→20:00)
[2017-06-03] MEDS: MUPIROCIN 2% OINT 1 APPLIC/GM SYR EACH NARE SCH ×2 (09:00→21:00)
[2017-06-03] MEDS: levETIRAcetam 1000 MG INJ 100 ML IV SCH ×2 (09:35→21:09)
[2017-06-03] MEDS: FUROSEMIDE 40 MG TAB PO SCH (09:36)
[2017-06-03] MEDS: FOLIC ACID 1 MG TAB PEG SCH (09:36)
[2017-06-03] MEDS: LANSOPRAZOLE SOLUTAB 30 MG TAB NG SCH (09:36)
[2017-06-03] MEDS: LACTOBACILLUS ACIDOPHILUS TAB PO SCH ×3 (09:36→18:27)
[2017-06-03] MEDS: THIAMINE HCL 100 MG TAB PO SCH (09:36)
[2017-06-03] MEDS: ARTIFICIAL TEARS OPTH SOLN 15 ML BTL EACH EYE SCH ×3 (09:37→18:35)
[2017-06-03] MEDS: NYSTATIN 100,000 U/GM PWD 15 GM BTL TOPICAL SCH ×2 (09:37→21:00)
[2017-06-03] MEDS: SODIUM HYPOCHLORITE 0.125% 500 ML BTL TOPICAL SCH (09:37)
[2017-06-03] MEDS: HEPARIN SODIUM - SQ 10,000 UNITS/ML VIAL SQ SCH ×2 (09:38→21:09)
--- NOTE | 2017-06-03 10:51 | HHI.PR ---
Subjective Remarks Follow-up for hyponatremia, osmotic demyelination syndrome. Patient seen and examined today. RN at bedside. Patient lying in bed comfortably, PMV in place. Speech clear. Alert and oriented x 3. Denies any acute events overnight. Tolerating PO intake. Denies any nausea, vomiting or diarrhea. Patient complaint of some pain at old PEG site. Objective Vitals Vital Signs Date Time Temp Pulse Resp B/P Pulse Ox O2 Delivery O2 Flow Rate FiO2 06/03/17 09:52 21 06/03/17 09:52 98 21 06/03/17 08:00 98.0 80 18 103/61 97 06/03/17 04:00 98.2 80 18 111/64 98 06/03/17 00:00 97.9 81 20 118/67 98 06/02/17 20:00 97.1 81 20 113/58 98 06/02/17 16:00 98.0 85 18 107/64 97 06/02/17 13:50 102/56 06/02/17 12:00 98.2 84 18 96/50 97 I/O 06/02/17 06/02/17 06/02/17 06/03/17 06/03/17 06/03/17 07:00 15:00 23:00 07:00 15:00 23:00 Intake Total 120 ml 871 ml 240 ml 0 ml Output Total 300 ml 500 ml 600 ml 450 ml Balance -180 ml 371 ml -360 ml -450 ml Intake Oral 120 ml 360 ml 240 ml 0 ml IV Total 511 ml Output Urine Total 300 ml 500 ml 600 ml 450 ml # Bowel Movements 0 0 0 0 Result Diagram: 05/31/17 0858 06/01/17 0637 Imaging Last Impressions Chest X-Ray 05/16/17 0000 Signed Impressions: Service Date/Time: May 12:56 - CONCLUSION: Improving lung aeration with decreasing air space disease. Persistent left basilar consolidation. Carlos Galindo MD Abdomen/Pelvis CT 05/08/17 0000 Signed Impressions: Service Date/Time: Monday, May 08, 2017 23:10 - CONCLUSION: Significant fluid throughout the abdomen and the pelvis with what appears to be a cirrhotic appearing liver and splenomegaly. There is significant small bowel wall thickening throughout the lower abdomen and the upper pelvis without evidence of obstruction Milo Muhammad MD Abdomen X-Ray 05/08/17 Signed Impressions: Service Date/Time: Monday, May 08, 2017 15:30 - CONCLUSION: 1. There is diffuse, mild gaseous distention of the small bowel. No findings to indicate obstruction. Mihir Harry MD Liver Ultrasound 04/15/17 0000 Signed Impressions: Service Date/Time: Saturday, April 15, 2017 09:24 - CONCLUSION: 1. Abnormal appearance of the pancreas with a nonspecific hypoechoic area involving the posterior part of the pancreas along the head and body region. Recommend CT scan of the abdomen with oral and IV contrast further evaluation. 2. Fatty infiltration throughout the liver. 3. There is thickening of the gallbladder wall at 6 mm. This is suggestive of chronic gallbladder disease. 4. Small amount of free fluid adjacent to the liver and spleen in the upper abdomen.. 5. Right-sided pleural effusion. Víctor Rosas MD Head CT 04/12/17 0000 Signed Impressions: Service Date/Time: Wednesday, April 12, 2017 21:30 - CONCLUSION: Pontine encephalomalacia. Left mastoiditis. Casper Alva MD Head Magnetic Resonance Angiography 03/28/17 0000 Signed Impressions: Service Date/Time: March 17:22 - CONCLUSION: Unremarkable examination. K. Bijan Castillo MD Brain MRI 03/28/17 0000 Signed Impressions: Service Date/Time: March 17:22 - CONCLUSION: 1. 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 Small subacute ischemic bilateral thalamic infarcts. 2. There has been no significant change when compared to the prior exam. Yinka Harman MD Lower Extremity Ultrasound 03/25/17 0000 Signed Impressions: Service Date/Time: Saturday, March 25, 2017 22:17 - CONCLUSION: No evidence of DVT. Víctor Rosas MD CT Angiography 03/21/17 0000 Signed Impressions: Service Date/Time: March 00:33 - CONCLUSION: No evidence of pulmonary embolism is identified. Mild atelectasis left lung base. Fluid or phlegm within the trachea. Milo Muhammad MD Abdomen Ultrasound 03/20/17 0000 Signed Impressions: Service Date/Time: Monday, March 20, 2017 11:38 - CONCLUSION: 1. Hepatosplenomegaly without focal lesion. 2. Probable sludge within the lumen of the gallbladder. No intrahepatic duct. Cheo Martínez MD Shoulder X-Ray 03/02/17 1404 Signed Impressions: Service Date/Time: Thursday, March 02, 2017 15:18 - CONCLUSION: No evidence of recent bony injury. Deformity of the lateral left clavicle suggests old healed trauma. Cheo Martínez MD Maxillofacial CT 03/02/17 1342 Signed Impressions: Service Date/Time: Thursday, March 02, 2017 14:52 - CONCLUSION: Negative CT of the facial bones. Cheo Martínez MD Chest CT 03/02/17 1342 Signed Impressions: Service Date/Time: Thursday, March 02, 2017 15:04 - CONCLUSION: 1. Abnormal appearance of the lateral left clavicle suggesting a combination of acute and chronic bony injury. Fracture lucencies without bridging callus is seen the region of the coracoid process. 2. The lungs are clear. No evidence of pneumothorax. 3. Moderate size hiatus hernia. Cheo Martínez MD Cervical Spine CT 03/02/17 1342 Signed Impressions: Service Date/Time: Thursday, March 02, 2017 14:52 - CONCLUSION: Negative CT cervical spine. Cheo Martínez MD Objective Remarks GENERAL: Well-nourished, well-developed male patient lying in bed in no apparent distress on PMV with supplemental O2, tolerating well. SKIN: Warm and dry. Trach site with dressing in place. Bilateral lower extremity edema, 1+ pitting edema. HEENT: Normocephalic. No scleral icterus. No injection or drainage. NECK: Supple, trachea midline. No JVD. CARDIOVASCULAR: Regular rate and rhythm. No murmur appreciated. RESPIRATORY: Breath sounds equal bilaterally. Distant breath sounds noted throughout. No accessory muscle use. GASTROINTESTINAL: Abdomen soft, non-tender, nondistended. Old PEG site with dressing intact, clean and dry. EXTREMITIES: No cyanosis, or edema. NEUROLOGICAL: Awake, alert, and oriented x 3 Procedures 03/02/2017 - arterial line and central line placement. 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 Sandhu is a 61 year old male with a history of alcohol abuse, severe hypernatremia who presented to the ED on 03/02/2017 due to worsening fatigue, weakness that started 13 days prior to this hospitalization. He was found to have significant delirium. He admitted to drinking alcohol as well as taking xanax as well. ED work up indicated Na 99, Bilirubin 8.9, Lactate 9.8, Ammonia 60, CK 7000, troponin 4.9, Creatinine 1.5, bicarb 13. His WBC was 12, Platelets 112, INR 1.9. Meld score 26. He was severely hydrated. Patient was started on isotonic saline in an effort to improve hypovolemia. Patients sodium corrected too rapidly. Patient was treated for distributive shock, alcohol withdrawal and electrolyte imbalances in the ICU. 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 - Continue Keppra 1000 mg every 12 hours. - Lorazepam 1 mg every 12 hours PO for seizures. Alcoholic liver disease Alcohol dependence Lower extremity thigh edema, improving - CT abdomen shows liver cirrhosis. - DCd rifaximin. Monitor neuro status. - Continue folic acid and thiamine. - Continue Furosemide 40 mg PO daily. - Monitor UO, electrolytes and intake closely while on diuretics. - PT and OT services continue, endurance is currently poor/highly limited. Acute hypoxemic and hypercapnic respiratory failure - Status post tracheostomy on 04/16/2017. Pulmonology following. - Levsin available PRN for increased tracheal secretions. - Continue Duonebs scheduled. PEG site infection - PEG site culture growing pseudomonas and Group D Enterococcus on 06/01/17 - PEG removed. - Speech following patient, tolerating PO intake. Recommendations for soft and thin liquids. Monitor PO intake closely. Monitor for aspiration. - GI following, plan to keep PEG out if tolerating PO well. Awaiting resolution of infection. Continue Levaquin. Upper respiratory bacterial infection, acute on chronic: Likely colonization and source of active infection. - Sputum culture growing Pseudomonas aeruginosa and Group D Enterococcus on 05/30/17. - Continue Levaquin 500 mg IV q24 hr. Urinary tract infection, resolved. - Urine culture + Klebsiella pneumoniae and Enterococcus faecalis. - DCd ceftriaxone, course completed. Diarrhea, resolved: C difficile recheck negative. Chronic pain: Continue Roxanol 5 mg PO q4h PRN per pain scale. Continue Morphine 5 mg IV q4h PRN per pain scale. GI prophylaxis: Prevacid DVT Prophylaxis: Heparin subcutaneous. Full code. Discharge Planning Last CM note: 06/03/17 [facility] is not in network with [employer], referral given to Carina with [facility]. Nayeli Devlin Jun 03, 2017 10:51
[2017-06-03] MEDS: MORPHINE SULFATE 8 MG/ML INJ IV PUSH PRN ×3 (13:27→22:35)
--- NOTE | 2017-06-03 14:25 | HHI.GIFU ---
Subjective Remarks Pt resting in bed, says he feels alot better than before. Admits abd discomfort LLQ, over PEG site. Objective Vitals I&O Vital Signs Date Time Temp Pulse Resp B/P Pulse Ox O2 Delivery O2 Flow Rate FiO2 06/03/17 09:52 21 06/03/17 09:52 98 21 06/03/17 08:00 98.0 80 18 103/61 97 06/03/17 04:00 98.2 80 18 111/64 98 06/03/17 00:00 97.9 81 20 118/67 98 06/02/17 20:00 97.1 81 20 113/58 98 06/02/17 16:00 98.0 85 18 107/64 97 I/O 06/02/17 06/02/17 06/02/17 06/03/17 06/03/17 06/03/17 07:00 15:00 23:00 07:00 15:00 23:00 Intake Total 120 ml 871 ml 240 ml 0 ml Output Total 300 ml 500 ml 600 ml 450 ml Balance -180 ml 371 ml -360 ml -450 ml Intake Oral 120 ml 360 ml 240 ml 0 ml IV Total 511 ml Output Urine Total 300 ml 500 ml 600 ml 450 ml # Bowel Movements 0 0 0 0 Laboratory Date/Time Procedure Status Source Growth 06/01/17 12:30 Gram Stain - Final Resulted Wound Abdomen 06/01/17 12:30 Wound Culture - Preliminary Resulted Pseudomonas Species Group D Enterococcus Imaging Last Impressions Chest X-Ray 05/16/17 0000 Signed Impressions: Service Date/Time: May 12:56 - CONCLUSION: Improving lung aeration with decreasing air space disease. Persistent left basilar consolidation. Carlos Galindo MD Abdomen/Pelvis CT 05/08/17 0000 Signed Impressions: Service Date/Time: Monday, May 08, 2017 23:10 - CONCLUSION: Significant fluid throughout the abdomen and the pelvis with what appears to be a cirrhotic appearing liver and splenomegaly. There is significant small bowel wall thickening throughout the lower abdomen and the upper pelvis without evidence of obstruction Milo Muhammad MD Abdomen X-Ray 05/08/17 0000 Signed Impressions: Service Date/Time: Monday, May 08, 2017 15:30 - CONCLUSION: 1. There is diffuse, mild gaseous distention of the small bowel. No findings to indicate obstruction. Mihir Harry MD Liver Ultrasound 04/15/17 0000 Signed Impressions: Service Date/Time: Saturday, April 15, 2017 09:24 - CONCLUSION: 1. Abnormal appearance of the pancreas with a nonspecific hypoechoic area involving the posterior part of the pancreas along the head and body region. Recommend CT scan of the abdomen with oral and IV contrast further evaluation. 2. Fatty infiltration throughout the liver. 3. There is thickening of the gallbladder wall at 6 mm. This is suggestive of chronic gallbladder disease. 4. Small amount of free fluid adjacent to the liver and spleen in the upper abdomen.. 5. Right-sided pleural effusion. Víctor Rosas MD Head CT 04/12/17 0000 Signed Impressions: Service Date/Time: Wednesday, April 12, 2017 21:30 - CONCLUSION: Pontine encephalomalacia. Left mastoiditis. Casper Avla MD Head Magnetic Resonance Angiography 03/28/17 0000 Signed Impressions: Service Date/Time: March 17:22 - CONCLUSION: Unremarkable examination. Bety Castillo MD Brain MRI 03/28/17 0000 Signed Impressions: Service Date/Time: March 17:22 - CONCLUSION: 1. 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 Small subacute ischemic bilateral thalamic infarcts. 2. There has been no significant change when compared to the prior exam. Yinka Harman MD Lower Extremity Ultrasound 03/25/17 0000 Signed Impressions: Service Date/Time: Saturday, March 25, 2017 22:17 - CONCLUSION: No evidence of DVT. Víctor Rosas MD CT Angiography 03/21/17 0000 Signed Impressions: Service Date/Time: March 00:33 - CONCLUSION: No evidence of pulmonary embolism is identified. Mild atelectasis left lung base. Fluid or phlegm within the trachea. Milo Muhammad MD Abdomen Ultrasound 03/20/17 0000 Signed Impressions: Service Date/Time: Monday, March 20, 2017 11:38 - CONCLUSION: 1. Hepatosplenomegaly without focal lesion. 2. Probable sludge within the lumen of the gallbladder. No intrahepatic duct. Cheo Martínez MD Shoulder X-Ray 03/02/17 1404 Signed Impressions: Service Date/Time: Thursday, March 02, 2017 15:18 - CONCLUSION: No evidence of recent bony injury. Deformity of the lateral left clavicle suggests old healed trauma. Cheo Martínez MD Maxillofacial CT 03/02/17 1342 Signed Impressions: Service Date/Time: Thursday, March 02, 2017 14:52 - CONCLUSION: Negative CT of the facial bones. Cheo Martínez MD Chest CT 03/02/17 1342 Signed Impressions: Service Date/Time: Thursday, March 02, 2017 15:04 - CONCLUSION: 1. Abnormal appearance of the lateral left clavicle suggesting a combination of acute and chronic bony injury. Fracture lucencies without bridging callus is seen the region of the coracoid process. 2. The lungs are clear. No evidence of pneumothorax. 3. Moderate size hiatus hernia. Cheo Martínez MD Cervical Spine CT 03/02/17 1342 Signed Impressions: Service Date/Time: Thursday, March 02, 2017 14:52 - CONCLUSION: Negative CT cervical spine. Cheo Martínez MD Physical Exam HEENT: EOMI Normocephalic; atraumatic; poor dentition CHEST: Coarse sounds CARDIAC: RRR ABDOMEN: +BS, soft, mildly distended, previous peg site wound with erythema, purulent drainage and tenderness. EXTREMITIES: no cyanosis, edema SKIN: no rash; no jaundice. CYBERATHLETE: awake, cooperative with exam Assessment and Plan Plan ASSESSMENT: - PEG dislodged. Pt had a previous PEG tube placed on 04/15/[address] Curran. PEG was accidentally dislodged on 05/31/17. Site looks possibly infected with erythema od the surrounding skin, purulent drainage and tenderness around the previous insertion site. Culture growing psuedomonas species, enterococcus D , sensitivity report pending. He had been tolerating TF well prior to this with Jevity 1.5 @ 60mL/hr - Alcoholic liver disease/evidence of cirrhosis. Pt with hx of alcohol abuse. MELD 25. CT Abd/pelvis (05-08-17) --> significant fluid throughout abdomen and pelvis with what appears to be cirrhotic looking liver and splenomegaly, significant sm bowel wall thickening throughout lower abd and upper pelvis w/o evidence obstruction. LFTs last checked on 05/12 were stable. - Coagulopathy. improving PT 12.6, INR 1.1 (04/15). - Anemia. HH stable. No active bleeding. - Resp. Failure/PNA. Trach capped. Pt with a lot of secretions. 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 thalamic CVA. S/P Neuro eval. Lactulose, Xifaxan. - Leukocytosis with UTI (S/P Tx), PNA. Sputum culture on 05/30 growing gram negative rods. Management per attending. - CHF, Hx hypothyroidism per [facility] PLAN: - Pt will be unable to have PEG replaced until infection at previous site is treated and improved. - await final C&S PEG site - per [facility] soft diet, thin liquids, no straws, passy muri valve on trach with all meals -continue abx - Monitor wound site for any progression - Continue with current supportive care and monitor labs - Pt was seen and examined by myself and Dr. Alejandra, this note was written on his behalf. Jackie Styles Jun 03, 2017 14:25
[2017-06-03] MEDS: LEVOFLOXACIN 500 MG PREMIX INJ 100 ML IV SCH (14:43)
[2017-06-04] VITALS (8 sets, daily range): BP systolic 106–115; BP diastolic 62–69; PULSE 74–79; RESP 16–20; TEMP 97.2–98.1; O2SAT 96–99
[2017-06-04] MEDS: CHLORHEXIDINE 0.12% (ORAL KIT) 15 ML CUP MT SCH ×2 (08:00→20:52)
[2017-06-04] MEDS: MUPIROCIN 2% OINT 1 APPLIC/GM SYR EACH NARE SCH ×2 (08:18→20:52)
[2017-06-04] MEDS: LANSOPRAZOLE SOLUTAB 30 MG TAB NG SCH (08:18)
[2017-06-04] MEDS: FOLIC ACID 1 MG TAB PEG SCH (08:18)
[2017-06-04] MEDS: FUROSEMIDE 40 MG TAB PO SCH (08:18)
[2017-06-04] MEDS: LACTOBACILLUS ACIDOPHILUS TAB PO SCH ×3 (08:18→17:15)
[2017-06-04] MEDS: THIAMINE HCL 100 MG TAB PO SCH (08:18)
[2017-06-04] MEDS: ARTIFICIAL TEARS OPTH SOLN 15 ML BTL EACH EYE SCH ×3 (08:19→17:15)
[2017-06-04] MEDS: NYSTATIN 100,000 U/GM PWD 15 GM BTL TOPICAL SCH ×2 (08:19→20:54)
[2017-06-04] MEDS: levETIRAcetam 1000 MG INJ 100 ML IV SCH ×2 (08:19→20:55)
[2017-06-04] MEDS: SODIUM HYPOCHLORITE 0.125% 500 ML BTL TOPICAL SCH (08:19)
[2017-06-04] MEDS: HEPARIN SODIUM - SQ 10,000 UNITS/ML VIAL SQ SCH ×2 (08:19→20:53)
[2017-06-04] MEDS: MORPHINE SULFATE 8 MG/ML INJ IV PUSH PRN ×3 (08:21→18:50)
--- NOTE | 2017-06-04 09:14 | HHI.PR ---
Subjective Remarks Follow-up for hyponatremia, osmotic demyelination syndrome. Patient seen and examined today, awake, alert and eating breakfast. Denies any new acute complaints. States abdominal discomfort improved some today. Tolerating PO intake, no signs of aspiration. Speech following. Positive BM. Denies any recent fever, chills, shortness of breath, abdominal pain, nausea, vomiting, diarrhea or dysuria. Objective Vitals Vital Signs Date Time Temp Pulse Resp B/P Pulse Ox O2 Delivery O2 Flow Rate FiO2 06/04/17 08:00 97.9 75 20 107/66 97 06/04/17 06:00 97.8 75 20 115/64 99 06/04/17 04:00 T-Piece 6.00 06/04/17 00:00 98.1 75 18 107/62 06/04/17 00:00 T-Piece 6.00 06/03/17 21:20 98 Trach Collar 28 06/03/17 20:00 98.0 81 20 114/74 93 06/03/17 20:00 77 06/03/17 20:00 T-Piece 6.00 06/03/17 16:00 98.3 79 18 115/69 99 06/03/17 12:00 98.0 80 18 104/62 97 06/03/17 09:52 21 06/03/17 09:52 98 21 I/O 06/03/17 06/03/17 06/03/17 06/04/17 06/04/17 06/04/17 07:00 15:00 23:00 07:00 15:00 23:00 Intake Total 0 ml 474 ml 413 ml 0 ml Output Total 450 ml 900 ml 350 ml 275 ml Balance -450 ml -426 ml 63 ml -275 ml Intake Oral 0 ml 360 ml 240 ml 0 ml IV Total 114 ml 173 ml Output Urine Total 450 ml 900 ml 350 ml 275 ml # Bowel Movements 0 2 0 0 Result Diagram: 05/31/17 0858 06/01/17 0637 Imaging Last Impressions Chest X-Ray 05/16/17 0000 Signed Impressions: Service Date/Time: May 12:56 - CONCLUSION: Improving lung aeration with decreasing air space disease. Persistent left basilar consolidation. Carlos Galindo MD Abdomen/Pelvis CT 05/08/17 0000 Signed Impressions: Service Date/Time: Monday, May 08, 2017 23:10 - CONCLUSION: Significant fluid throughout the abdomen and the pelvis with what appears to be a cirrhotic appearing liver and splenomegaly. There is significant small bowel wall thickening throughout the lower abdomen and the upper pelvis without evidence of obstruction Milo Muhammad MD Abdomen X-Ray 05/08/17 0000 Signed Impressions: Service Date/Time: Monday, May 08, 2017 15:30 - CONCLUSION: 1. There is diffuse, mild gaseous distention of the small bowel. No findings to indicate obstruction. Mihir Harry MD Liver Ultrasound 04/15/17 0000 Signed Impressions: Service Date/Time: Saturday, April 15, 2017 09:24 - CONCLUSION: 1. Abnormal appearance of the pancreas with a nonspecific hypoechoic area involving the posterior part of the pancreas along the head and body region. Recommend CT scan of the abdomen with oral and IV contrast further evaluation. 2. Fatty infiltration throughout the liver. 3. There is thickening of the gallbladder wall at 6 mm. This is suggestive of chronic gallbladder disease. 4. Small amount of free fluid adjacent to the liver and spleen in the upper abdomen.. 5. Right-sided pleural effusion. Víctor Rosas MD Head CT 04/12/17 0000 Signed Impressions: Service Date/Time: Wednesday, April 12, 2017 21:30 - CONCLUSION: Pontine encephalomalacia. Left mastoiditis. Casper Alva MD Head Magnetic Resonance Angiography 03/28/17 0000 Signed Impressions: Service Date/Time: March 17:22 - CONCLUSION: Unremarkable examination. Bety Castillo MD Brain MRI 03/28/17 0000 Signed Impressions: Service Date/Time: March 17:22 - CONCLUSION: 1. 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 Small subacute ischemic bilateral thalamic infarcts. 2. There has been no significant change when compared to the prior exam. Yinka Harman MD Lower Extremity Ultrasound 03/25/17 0000 Signed Impressions: Service Date/Time: Saturday, March 25, 2017 22:17 - CONCLUSION: No evidence of DVT. Víctor Rosas MD CT Angiography 03/21/17 0000 Signed Impressions: Service Date/Time: March 00:33 - CONCLUSION: No evidence of pulmonary embolism is identified. Mild atelectasis left lung base. Fluid or phlegm within the trachea. Milo Muhammad MD Abdomen Ultrasound 03/20/17 0000 Signed Impressions: Service Date/Time: Monday, March 20, 2017 11:38 - CONCLUSION: 1. Hepatosplenomegaly without focal lesion. 2. Probable sludge within the lumen of the gallbladder. No intrahepatic duct. Cheo Martínez MD Shoulder X-Ray 03/02/17 1404 Signed Impressions: Service Date/Time: Thursday, March 02, 2017 15:18 - CONCLUSION: No evidence of recent bony injury. Deformity of the lateral left clavicle suggests old healed trauma. Cheo Martínez MD Maxillofacial CT 03/02/17 1342 Signed Impressions: Service Date/Time: Thursday, March 02, 2017 14:52 - CONCLUSION: Negative CT of the facial bones. Cheo Martínez MD Chest CT 03/02/17 1342 Signed Impressions: Service Date/Time: Thursday, March 02, 2017 15:04 - CONCLUSION: 1. Abnormal appearance of the lateral left clavicle suggesting a combination of acute and chronic bony injury. Fracture lucencies without bridging callus is seen the region of the coracoid process. 2. The lungs are clear. No evidence of pneumothorax. 3. Moderate size hiatus hernia. Cheo Martínez MD Cervical Spine CT 03/02/17 1342 Signed Impressions: Service Date/Time: Thursday, March 02, 2017 14:52 - CONCLUSION: Negative CT cervical spine. Cheo Martínez MD Objective Remarks GENERAL: Well-nourished, well-developed male patient lying in bed in no apparent distress on PMV with supplemental O2, tolerating well. SKIN: Warm and dry. Trach site with dressing in place. Bilateral lower extremity edema much improved, trace edema noted. HEENT: Normocephalic. No scleral icterus. No injection or drainage. NECK: Supple, trachea midline. No JVD. CARDIOVASCULAR: Regular rate and rhythm. No murmur appreciated. RESPIRATORY: Breath sounds equal bilaterally. Distant breath sounds noted throughout. No accessory muscle use. GASTROINTESTINAL: Abdomen soft, non-tender, nondistended. Old PEG site with dressing intact, clean and dry serous drainage noted. EXTREMITIES: No cyanosis, or edema. NEUROLOGICAL: Awake, alert, and oriented x 3 Procedures 03/02/2017 - arterial line and central line placement. 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 Sandhu is a 61 year old male with a history of alcohol abuse, severe hypernatremia who presented to the ED on 03/02/2017 due to worsening fatigue, weakness that started 13 days prior to this hospitalization. He was found to have significant delirium. He admitted to drinking alcohol as well as taking xanax as well. ED work up indicated Na 99, Bilirubin 8.9, Lactate 9.8, Ammonia 60, CK 7000, troponin 4.9, Creatinine 1.5, bicarb 13. His WBC was 12, Platelets 112, INR 1.9. Meld score 26. He was severely hydrated. Patient was started on isotonic saline in an effort to improve hypovolemia. Patients sodium corrected too rapidly. Patient was treated for distributive shock, alcohol withdrawal and electrolyte imbalances in the ICU. 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 - Continue Keppra 1000 mg every 12 hours. - Lorazepam 1 mg every 12 hours PO for seizures. Alcoholic liver disease Alcohol dependence Lower extremity thigh edema, improving - CT abdomen shows liver cirrhosis. - DCd rifaximin. Monitor neuro status. - Continue folic acid and thiamine. - Continue Furosemide 40 mg PO daily. - Monitor UO, electrolytes and intake closely while on diuretics. - PT and OT services continue, endurance is currently poor/highly limited. Acute hypoxemic and hypercapnic respiratory failure - Status post tracheostomy on 04/16/2017. Pulmonology following. - Levsin available PRN for increased tracheal secretions. - Continue Duonebs scheduled. PEG site infection - PEG site culture growing pseudomonas and Group D Enterococcus on 06/01/17 - PEG removed. - Speech following patient, tolerating PO intake. Recommendations for mechanical soft and thin liquids. Monitor PO intake closely. Monitor for aspiration. - GI following, plan to keep PEG out if tolerating PO well. Awaiting resolution of infection. Continue Levaquin. Upper respiratory bacterial infection, acute on chronic: Likely colonization and source of active infection. - Sputum culture growing Pseudomonas aeruginosa and Group D Enterococcus on 05/30/17. - Continue Levaquin 500 mg IV q24 hr. Urinary tract infection, resolved. - Urine culture + Klebsiella pneumoniae and Enterococcus faecalis. - DCd ceftriaxone, course completed. Diarrhea, resolved: C difficile recheck negative. Chronic pain: Continue Roxanol 5 mg PO q4h PRN per pain scale. Continue Morphine 5 mg IV q4h PRN per pain scale. GI prophylaxis: Prevacid DVT Prophylaxis: Heparin subcutaneous. Full code. Discharge Planning Last CM note: 06/03/17 Danyell is not in network with [employer], referral given to Carina with [facility]. Nayeli Devlin Jun 04, 2017 09:14
[2017-06-04] MEDS: LEVOFLOXACIN 500 MG PREMIX INJ 100 ML IV SCH (12:21)
[2017-06-04] MEDS: ONDANSETRON HCL 4 MG/2 ML VIAL IV PRN (18:51)
--- NOTE | 2017-06-04 19:09 | HHI.GIFU ---
Subjective Remarks Pt reports he cannot eat, is nauseated, cannot sleep. He wants to . His PEG tube site became infected and came out. The site appears to be healing, but there is still a punched out hole in the superficial dermis. Not much erythema around it. No induration. He will need a new PEG tube soon. We can place on perhaps. Will use a different site. This will allow resumption of feeding. Objective Vitals I&O Vital Signs Date Time Temp Pulse Resp B/P Pulse Ox O2 Delivery O2 Flow Rate FiO2 06/04/17 16:00 97.5 74 20 106/68 98 06/04/17 13:57 98 Trach Collar 6.00 28 06/04/17 12:00 97.2 77 20 110/67 98 06/04/17 11:08 T-Piece 6.00 28 06/04/17 08:00 97.9 75 20 107/66 97 06/04/17 06:00 97.8 75 20 115/64 99 06/04/17 04:00 T-Piece 6.00 06/04/17 00:00 98.1 75 18 107/62 06/04/17 00:00 T-Piece 6.00 06/03/17 21:20 98 Trach Collar 28 06/03/17 20:00 98.0 81 20 114/74 93 06/03/17 20:00 77 06/03/17 20:00 T-Piece 6.00 I/O 06/03/17 06/03/17 06/03/17 06/04/17 06/04/17 06/04/17 06:59 14:59 22:59 06:59 14:59 22:59 Intake Total 0 ml 474 ml 413 ml 0 ml 240 ml Output Total 450 ml 900 ml 350 ml 275 ml 1080 ml Balance -450 ml -426 ml 63 ml -275 ml -840 ml Intake Oral 0 ml 360 ml 240 ml 0 ml 240 ml IV Total 114 ml 173 ml Output Urine Total 450 ml 900 ml 350 ml 275 ml 1080 ml # Bowel Movements 0 2 0 0 0 Laboratory Date/Time Procedure Status Source Growth 06/01/17 12:30 Gram Stain - Final Complete Wound Abdomen 06/01/17 12:30 Wound Culture - Final Complete Pseudomonas Aeruginosa Enterococcus Faecalis Physical Exam HEENT: EOMI Normocephalic; atraumatic; poor dentition CHEST: Coarse sounds CARDIAC: RRR ABDOMEN: +BS, soft, mildly distended, previous peg site wound appears improved. No erythema. No massive ascites. EXTREMITIES: no cyanosis, edema SKIN: no rash; no jaundice. SCOOP DRIVER: awake, cooperative with exam Assessment and Plan Plan ASSESSMENT: - PEG dislodged. Pt had a previous PEG tube placed on 04/15/[address] Curran. PEG was accidentally dislodged on 05/31/17. Site looks possibly infected with erythema od the surrounding skin, purulent drainage and tenderness around the previous insertion site. Culture growing psuedomonas species, enterococcus D , sensitivity report pending. He had been tolerating TF well prior to this with Jevity 1.5 @ 60mL/hr - Alcoholic liver disease/evidence of cirrhosis. Pt with hx of alcohol abuse. MELD 25. CT Abd/pelvis (05-08-17) --> significant fluid throughout abdomen and pelvis with what appears to be cirrhotic looking liver and splenomegaly, significant sm bowel wall thickening throughout lower abd and upper pelvis w/o evidence obstruction. LFTs last checked on 05/12 were stable. - Coagulopathy. improving PT 12.6, INR 1.1 (04/15). - Anemia. HH stable. No active bleeding. - Resp. Failure/PNA. Trach capped. Pt with a lot of secretions. 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 thalamic CVA. S/P Neuro eval. Lactulose, Xifaxan. - Leukocytosis with UTI (S/P Tx), PNA. Sputum culture on 05/30 growing gram negative rods. Management per attending. - CHF, Hx hypothyroidism per [facility] PLAN: - Peg may be placed at new site on or saturday. - await final C&S PEG site - per [facility] soft diet, thin liquids, no straws, passy muri valve on trach with all meals -continue abx - Monitor wound site for any progression - Continue with current supportive care and monitor labs - Treat nausea and inability to sleep. - Repeat labs in AM Madi Alejandra MD Jun 04, 2017 19:09
[2017-06-04] MEDS: LORazepam 2 MG/ML VIAL IV PUSH PRN (21:04)
[2017-06-05] VITALS (10 sets, daily range): BP systolic 99–116; BP diastolic 58–71; PULSE 76–82; RESP 16–20; TEMP 97.6–98.5; O2SAT 93–98
[2017-06-05] MEDS: ONDANSETRON HCL 4 MG/2 ML VIAL IV PRN ×2 (00:51→21:49)
[2017-06-05] MEDS: CHLORHEXIDINE 0.12% (ORAL KIT) 15 ML CUP MT SCH ×2 (08:00→19:48)
[2017-06-05] MEDS: levETIRAcetam 1000 MG INJ 100 ML IV SCH ×2 (08:32→19:48)
[2017-06-05] MEDS: MUPIROCIN 2% OINT 1 APPLIC/GM SYR EACH NARE SCH ×2 (08:33→19:47)
[2017-06-05] MEDS: HEPARIN SODIUM - SQ 10,000 UNITS/ML VIAL SQ SCH ×2 (08:33→19:49)
[2017-06-05] MEDS: FOLIC ACID 1 MG TAB PEG SCH (08:33)
[2017-06-05] MEDS: LACTOBACILLUS ACIDOPHILUS TAB PO SCH ×3 (08:33→17:06)
[2017-06-05] MEDS: FUROSEMIDE 40 MG TAB PO SCH (08:33)
[2017-06-05] MEDS: LANSOPRAZOLE SOLUTAB 30 MG TAB NG SCH (08:33)
[2017-06-05] MEDS: SODIUM HYPOCHLORITE 0.125% 500 ML BTL TOPICAL SCH (08:34)
[2017-06-05] MEDS: ARTIFICIAL TEARS OPTH SOLN 15 ML BTL EACH EYE SCH ×3 (08:34→17:06)
[2017-06-05] MEDS: NYSTATIN 100,000 U/GM PWD 15 GM BTL TOPICAL SCH ×2 (08:34→19:48)
[2017-06-05] MEDS: THIAMINE HCL 100 MG TAB PO SCH (08:44)
[2017-06-05 09:13] LABS: AUTOMATED NEUTROPHIL # 4.6 TH/MM3 (1.8-7.7); BASOPHIL % 0.4 % (0.0-2.0); EOSINOPHIL # 0.1 TH/MM3 (0-0.4); EOSINOPHIL % 1.3 % (0.0-4.0); HEMATOCRIT 27.5 % (39.0-51.0); HEMO FLAGS DIFF FINAL; LYMPH % 20.7 % (9.0-44.0); LYMPHOCYTE # 1.4 TH/MM3 (1.0-4.8); MEAN CELL VOLUME 94.6 FL (80.0-100.0); MEAN CORPUSCULAR HEMOGLOBIN 32.4 PG (27.0-34.0); MEAN CORPUSCULAR HGB CONC 34.2 % (32.0-36.0); MONO % 6.7 % (0.0-8.0); NEUT % 70.9 % (16.0-70.0); PLATELET COUNT 177 TH/MM3 (150-450); RED BLOOD COUNT 2.91 MIL/MM3 (4.50-5.90); RED CELL DISTRIBUTION WIDTH 13.6 % (11.6-17.2); WHITE BLOOD COUNT 6.5 TH/MM3 (4.0-11.0)
[2017-06-05 09:36] LABS: ANION GAP 10 MEQ/L (5-15); AST (GOT) 45 U/L (15-37); BICARBONATE 25.1 MEQ/L (21.0-32.0); BLOOD UREA NITROGEN 8 MG/DL (7-18); CHLORIDE 100 MEQ/L (98-107); GLOMERULAR FILTRATION RATE 319 ML/MIN (>89); POTASSIUM 3.3 MEQ/L (3.5-5.1); SODIUM (NA) 135 MEQ/L (136-145)
[2017-06-05 09:40] LABS: ALKALINE PHOSPHATASE 181 U/L (45-117); ALT (GPT) 19 U/L (12-78); TOTAL BILIRUBIN ADULT 1.2 MG/DL (0.2-1.0)
[2017-06-05] MEDS ORDERED: POTASSIUM CHLORIDE 25 MEQ EFFERVESCENT TAB PO ONE (11:15)
[2017-06-05] MEDS: LEVOFLOXACIN 500 MG PREMIX INJ 100 ML IV SCH (11:30)
--- NOTE | 2017-06-05 12:40 | HHI.PR ---
Subjective Remarks Follow-up for hyponatremia, osmotic demyelination syndrome. Patient seen and examined today, RT at bedside suctioning trach. PMV in place. Thick rivera secretions noted. Tolerating PO intake. Per documentation in EMR patient is eating 50-%-100% of all meals. Old PEG site assessed, clean dressing, minimal drainage, no erythema. GI note appreciated about comments of wanting to . Patient questioned and "stated he does not want to but rather asked is he dying?". Denies suicidal ideation at this time. Patient did display a flat affect today. Denies any pain. Denies any recent fever, chills, ab pain, n/v, diarrhea or dysuria. Objective Vitals Vital Signs Date Time Temp Pulse Resp B/P Pulse Ox O2 Delivery O2 Flow Rate FiO2 06/05/17 09:53 T-Piece 6.00 28 06/05/17 08:00 97.9 77 18 99/58 95 06/05/17 04:00 98.5 80 16 112/66 98 06/05/17 00:00 Trach Collar 6.00 06/05/17 00:00 97.6 77 16 115/71 97 06/04/17 20:08 79 06/04/17 20:00 97.8 77 16 114/69 96 06/04/17 20:00 Trach Collar 6.00 06/04/17 16:00 97.5 74 20 106/68 98 06/04/17 13:57 98 Trach Collar 6.00 28 I/O 06/04/17 06/04/17 06/04/17 06/05/17 06/05/17 06/05/17 07:00 15:00 23:00 07:00 15:00 23:00 Intake Total 0 ml 240 ml Output Total 275 ml 1080 ml 300 ml 100 ml Balance -275 ml -840 ml -300 ml -100 ml Intake Oral 0 ml 240 ml Output Urine Total 275 ml 1080 ml 300 ml 100 ml # Bowel Movements 0 0 Result Diagram: 06/05/17 0740 06/05/17 0740 Imaging Last Impressions Chest X-Ray 05/16/17 0000 Signed Impressions: Service Date/Time: May 12:56 - CONCLUSION: Improving lung aeration with decreasing air space disease. Persistent left basilar consolidation. Carlos Galindo MD Abdomen/Pelvis CT 6/7/17 0000 Signed Impressions: Service Date/Time: Monday, May 08, 2017 23:10 - CONCLUSION: Significant fluid throughout the abdomen and the pelvis with what appears to be a cirrhotic appearing liver and splenomegaly. There is significant small bowel wall thickening throughout the lower abdomen and the upper pelvis without evidence of obstruction Milo Muhammad MD Abdomen X-Ray 05/08/17 Signed Impressions: Service Date/Time: Monday, May 08, 2017 15:30 - CONCLUSION: 1. There is diffuse, mild gaseous distention of the small bowel. No findings to indicate obstruction. Mihir Harry MD Liver Ultrasound 04/15/17 0000 Signed Impressions: Service Date/Time: Saturday, April 15, 2017 09:24 - CONCLUSION: 1. Abnormal appearance of the pancreas with a nonspecific hypoechoic area involving the posterior part of the pancreas along the head and body region. Recommend CT scan of the abdomen with oral and IV contrast further evaluation. 2. Fatty infiltration throughout the liver. 3. There is thickening of the gallbladder wall at 6 mm. This is suggestive of chronic gallbladder disease. 4. Small amount of free fluid adjacent to the liver and spleen in the upper abdomen.. 5. Right-sided pleural effusion. Víctor Rosas MD Head CT 04/12/17 0000 Signed Impressions: Service Date/Time: Wednesday, April 12, 2017 21:30 - CONCLUSION: Pontine encephalomalacia. Left mastoiditis. Casper Alva MD Head Magnetic Resonance Angiography 03/28/17 0000 Signed Impressions: Service Date/Time: March 17:22 - CONCLUSION: Unremarkable examination. Bety Castillo MD Brain MRI 03/28/17 0000 Signed Impressions: Service Date/Time: March 17:22 - CONCLUSION: 1. 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 Small subacute ischemic bilateral thalamic infarcts. 2. There has been no significant change when compared to the prior exam. Yinka Harman MD Lower Extremity Ultrasound 03/25/17 0000 Signed Impressions: Service Date/Time: Saturday, March 25, 2017 22:17 - CONCLUSION: No evidence of DVT. Víctor Rosas MD CT Angiography 03/21/17 0000 Signed Impressions: Service Date/Time: March 00:33 - CONCLUSION: No evidence of pulmonary embolism is identified. Mild atelectasis left lung base. Fluid or phlegm within the trachea. Milo Muhammad MD Abdomen Ultrasound 03/20/17 0000 Signed Impressions: Service Date/Time: Monday, March 20, 2017 11:38 - CONCLUSION: 1. Hepatosplenomegaly without focal lesion. 2. Probable sludge within the lumen of the gallbladder. No intrahepatic duct. Cheo Martínez MD Shoulder X-Ray 03/02/17 1404 Signed Impressions: Service Date/Time: Thursday, March 02, 2017 15:18 - CONCLUSION: No evidence of recent bony injury. Deformity of the lateral left clavicle suggests old healed trauma. Cheo Martínez MD Maxillofacial CT 03/02/17 1342 Signed Impressions: Service Date/Time: Thursday, March 02, 2017 14:52 - CONCLUSION: Negative CT of the facial bones. Cheo Martínez MD Chest CT 03/02/17 1342 Signed Impressions: Service Date/Time: Thursday, March 02, 2017 15:04 - CONCLUSION: 1. Abnormal appearance of the lateral left clavicle suggesting a combination of acute and chronic bony injury. Fracture lucencies without bridging callus is seen the region of the coracoid process. 2. The lungs are clear. No evidence of pneumothorax. 3. Moderate size hiatus hernia. Cheo Martínez MD Cervical Spine CT 03/02/17 1342 Signed Impressions: Service Date/Time: Thursday, March 02, 2017 14:52 - CONCLUSION: Negative CT cervical spine. Cheo Martínez MD Objective Remarks GENERAL: Well-nourished, well-developed male patient lying in bed in no apparent distress on PMV with supplemental O2, tolerating well. Flat affect today. SKIN: Warm and dry. Trach site with dressing in place. Bilateral lower extremity edema much improved, trace edema noted. No continued scrotal edema. HEENT: Normocephalic. No scleral icterus. No injection or drainage. NECK: Supple, trachea midline. No JVD. CARDIOVASCULAR: Regular rate and rhythm. No murmur appreciated. RESPIRATORY: Breath sounds equal bilaterally. Distant breath sounds noted throughout. No accessory muscle use. GASTROINTESTINAL: Abdomen soft, non-tender, nondistended. Old PEG site with dressing intact, clean and dry serous drainage noted. EXTREMITIES: No cyanosis, or edema. NEUROLOGICAL: Awake, alert, and oriented x 3 Procedures 03/02/2017 - arterial line and central line placement. 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 Sandhu is a 61 year old male with a history of alcohol abuse, severe hypernatremia who presented to the ED on 03/02/2017 due to worsening fatigue, weakness that started 13 days prior to this hospitalization. He was found to have significant delirium. He admitted to drinking alcohol as well as taking xanax as well. ED work up indicated Na 99, Bilirubin 8.9, Lactate 9.8, Ammonia 60, CK 7000, troponin 4.9, Creatinine 1.5, bicarb 13. His WBC was 12, Platelets 112, INR 1.9. Meld score 26. He was severely hydrated. Patient was started on isotonic saline in an effort to improve hypovolemia. Patients sodium corrected too rapidly. Patient was treated for distributive shock, alcohol withdrawal and electrolyte imbalances in the ICU. 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 - Continue Keppra 1000 mg every 12 hours. - Lorazepam 1 mg every 12 hours PO for seizures. Alcoholic liver disease Alcohol dependence Lower extremity thigh edema, improving - CT abdomen shows liver cirrhosis. - DCd rifaximin. Monitor neuro status. - Continue folic acid and thiamine. - Continue Furosemide 40 mg PO daily. - Monitor UO, electrolytes and intake closely while on diuretics. - PT and OT services continue, endurance is currently poor/highly limited. Acute hypoxemic and hypercapnic respiratory failure - Status post tracheostomy on 04/16/2017. Pulmonology following. - Levsin available PRN for increased tracheal secretions. - Continue Duonebs scheduled. PEG site infection - PEG site culture growing pseudomonas and Group D Enterococcus on 06/01/17 - PEG removed. - Speech following patient, tolerating PO intake. Recommendations for mechanical soft and thin liquids. Monitor PO intake closely. Monitor for aspiration. - GI following, plan to replace PEG tomorrow 06/06. Continue Levaquin for now. Depression Insomnia - Start patient on Trazodone 50 mg PO HS. Monitor for effect or over sedation. - Monitor for suicidal ideation. Upper respiratory bacterial infection, acute on chronic: Likely colonization and source of active infection. - Sputum culture growing Pseudomonas aeruginosa and Group D Enterococcus on 05/30/17. - Continue Levaquin 500 mg IV q24 hr. Urinary tract infection, resolved. - Urine culture + Klebsiella pneumoniae and Enterococcus faecalis. - DCd ceftriaxone, course completed. Diarrhea, resolved: C difficile recheck negative. Prolonged immobility: Continue PT. Request stretcher chair and possibility of tolerating daily during meals. Chronic pain: Continue Roxanol 5 mg PO q4h PRN per pain scale. Continue Morphine 5 mg IV q4h PRN per pain scale. Hypokalemia: K 3.3 today 06/06. Replaced with KCL eff 25 meq x 1. Recheck in am. GI prophylaxis: Prevacid DVT Prophylaxis: Heparin subcutaneous. Full code. Discharge Planning Last CM note: 06/03/17 [facility] is not in network with [employer], referral given to Carina with [facility]. Nayeli Devlin Jun 05, 2017 12:40
--- NOTE | 2017-06-05 13:40 | HHI.GIFU ---
Subjective Remarks Resting in bed. Eating small amounts of po. Not much of an appetite and states he is only taking small amounts. No n/v. No abdominal pain. Objective Vitals I&O Vital Signs Date Time Temp Pulse Resp B/P Pulse Ox O2 Delivery O2 Flow Rate FiO2 06/05/17 12:22 97.6 77 20 110/64 93 06/05/17 12:00 97.6 77 20 110/64 93 06/05/17 09:53 T-Piece 6.00 28 06/05/17 08:00 97.9 77 18 99/58 95 06/05/17 04:00 98.5 80 16 112/66 98 06/05/17 00:00 Trach Collar 6.00 06/05/17 00:00 97.6 77 16 115/71 97 06/04/17 20:08 79 06/04/17 20:00 97.8 77 16 114/69 96 06/04/17 20:00 Trach Collar 6.00 06/04/17 16:00 97.5 74 20 106/68 98 06/04/17 13:57 98 Trach Collar 6.00 28 I/O 06/04/17 06/04/17 06/04/17 06/05/17 06/05/17 06/05/17 07:00 15:00 23:00 07:00 15:00 23:00 Intake Total 0 ml 240 ml Output Total 275 ml 1080 ml 300 ml 100 ml Balance -275 ml -840 ml -300 ml -100 ml Intake Oral 0 ml 240 ml Output Urine Total 275 ml 1080 ml 300 ml 100 ml # Bowel Movements 0 0 Laboratory Laboratory Tests Test 06/05/17 07:40 White Blood Count 6.5 Red Blood Count 2.91 Hemoglobin 9.4 Hematocrit 27.5 Mean Corpuscular Volume 94.6 Mean Corpuscular Hemoglobin 32.4 Mean Corpuscular Hemoglobin 34.2 Concent Red Cell Distribution Width 13.6 Platelet Count 177 Mean Platelet Volume 7.5 Neutrophils (%) (Auto) 70.9 Lymphocytes (%) (Auto) 20.7 Monocytes (%) (Auto) 6.7 Eosinophils (%) (Auto) 1.3 Basophils (%) (Auto) 0.4 Neutrophils # (Auto) 4.6 Lymphocytes # (Auto) 1.4 Monocytes # (Auto) 0.4 Eosinophils # (Auto) 0.1 Basophils # (Auto) 0.0 CBC Comment DIFF FINAL Differential Comment Sodium Level 135 Potassium Level 3.3 Chloride Level 100 Carbon Dioxide Level 25.1 Anion Gap 10 Blood Urea Nitrogen 8 Creatinine 0.29 Estimat Glomerular Filtration 319 Rate Random Glucose 81 Calcium Level 9.6 Total Bilirubin 1.2 Aspartate Amino Transf 45 (AST/SGOT) Alanine Aminotransferase 19 (ALT/SGPT) Alkaline Phosphatase 181 Total Protein 7.0 Albumin 2.6 Date/Time Procedure Status Source Growth 06/01/17 12:30 Gram Stain - Final Complete Wound Abdomen 06/01/17 12:30 Wound Culture - Final Complete Pseudomonas Aeruginosa Enterococcus Faecalis Imaging Last Impressions Chest X-Ray 05/16/17 0000 Signed Impressions: Service Date/Time: May 12:56 - CONCLUSION: Improving lung aeration with decreasing air space disease. Persistent left basilar consolidation. Carlos Galindo MD Abdomen/Pelvis CT 05/08/17 0000 Signed Impressions: Service Date/Time: Monday, May 08, 2017 23:10 - CONCLUSION: Significant fluid throughout the abdomen and the pelvis with what appears to be a cirrhotic appearing liver and splenomegaly. There is significant small bowel wall thickening throughout the lower abdomen and the upper pelvis without evidence of obstruction Milo Muhammad MD Abdomen X-Ray 05/08/17 0000 Signed Impressions: Service Date/Time: Monday, May 08, 2017 15:30 - CONCLUSION: 1. There is diffuse, mild gaseous distention of the small bowel. No findings to indicate obstruction. Mihir Harry MD Liver Ultrasound 04/15/17 0000 Signed Impressions: Service Date/Time: Saturday, April 15, 2017 09:24 - CONCLUSION: 1. Abnormal appearance of the pancreas with a nonspecific hypoechoic area involving the posterior part of the pancreas along the head and body region. Recommend CT scan of the abdomen with oral and IV contrast further evaluation. 2. Fatty infiltration throughout the liver. 3. There is thickening of the gallbladder wall at 6 mm. This is suggestive of chronic gallbladder disease. 4. Small amount of free fluid adjacent to the liver and spleen in the upper abdomen.. 5. Right-sided pleural effusion. Víctor Rosas MD Head CT 04/12/17 0000 Signed Impressions: Service Date/Time: Wednesday, April 12, 2017 21:30 - CONCLUSION: Pontine encephalomalacia. Left mastoiditis. Casper Alva MD Head Magnetic Resonance Angiography 03/28/17 0000 Signed Impressions: Service Date/Time: March 17:22 - CONCLUSION: Unremarkable examination. Bety Castillo MD Brain MRI 03/28/17 0000 Signed Impressions: Service Date/Time: March 17:22 - CONCLUSION: 1. 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 Small subacute ischemic bilateral thalamic infarcts. 2. There has been no significant change when compared to the prior exam. Yinka Harman MD Lower Extremity Ultrasound 03/25/17 0000 Signed Impressions: Service Date/Time: Saturday, March 25, 2017 22:17 - CONCLUSION: No evidence of DVT. Víctor Rosas MD CT Angiography 03/21/17 0000 Signed Impressions: Service Date/Time: March 00:33 - CONCLUSION: No evidence of pulmonary embolism is identified. Mild atelectasis left lung base. Fluid or phlegm within the trachea. Milo Muhammad MD Abdomen Ultrasound 03/20/17 0000 Signed Impressions: Service Date/Time: Monday, March 20, 2017 11:38 - CONCLUSION: 1. Hepatosplenomegaly without focal lesion. 2. Probable sludge within the lumen of the gallbladder. No intrahepatic duct. Cheo Martínez MD Shoulder X-Ray 03/02/17 1404 Signed Impressions: Service Date/Time: Thursday, March 02, 2017 15:18 - CONCLUSION: No evidence of recent bony injury. Deformity of the lateral left clavicle suggests old healed trauma. Cheo Martínez MD Maxillofacial CT 03/02/17 1342 Signed Impressions: Service Date/Time: Thursday, March 02, 2017 14:52 - CONCLUSION: Negative CT of the facial bones. Cheo Martínez MD Chest CT 03/02/17 1342 Signed Impressions: Service Date/Time: Thursday, March 02, 2017 15:04 - CONCLUSION: 1. Abnormal appearance of the lateral left clavicle suggesting a combination of acute and chronic bony injury. Fracture lucencies without bridging callus is seen the region of the coracoid process. 2. The lungs are clear. No evidence of pneumothorax. 3. Moderate size hiatus hernia. Cheo Martínez MD Cervical Spine CT 03/02/17 1342 Signed Impressions: Service Date/Time: Thursday, March 02, 2017 14:52 - CONCLUSION: Negative CT cervical spine. Cheo Martínez MD Physical Exam HEENT: Normocephalic; atraumatic; poor dentition CHEST: Coarse sounds, trach with passey cheri valve CARDIAC: RRR ABDOMEN: +BS, soft, mildly distended, previous peg site wound healing. EXTREMITIES: no cyanosis, edema SKIN: no rash; no jaundice. 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 Pt had a previous PEG tube placed on 04/15/[address] Curran. PEG was accidentally dislodged on 05/31/17. Site had erythema/drainage, cx grew psae, enterococcus D. On levaquin. Site improving. Pt is eating some po, but states he can only take small amounts and wants his TF replaced. ST following, soft diet with thin liquids/no straws/passey cheri valve on while eating. - Alcoholic liver disease/evidence of cirrhosis. Pt with hx of alcohol abuse. MELD 25. CT Abd/pelvis (05-08-17) --> significant fluid throughout abdomen and pelvis with what appears to be cirrhotic looking liver and splenomegaly, significant sm bowel wall thickening throughout lower abd and upper pelvis w/o evidence obstruction. LFTs last checked on 05/12 were stable. - Anemia. HH stable at 9.4/27.5. No active bleeding. - Resp. Failure/PNA. Has passey cheri valve in place. Pt with a lot of secretions. 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 thalamic CVA. S/P Neuro eval. Lactulose, Xifaxan. - Leukocytosis with UTI (S/P Tx), PNA. Sputum culture on 05/30 growing gram negative rods. Management per attending. - CHF, Hx hypothyroidism per [facility] PLAN: - Plan for egd with peg tube placement - Obtain consents - NPO after MN - Hold heparin after MN - ST following, soft diet with thin liquids, no straws, and passy cheri valve in place while eating - Cont. Abx. - per ST mech soft diet, thin liquids, no straws, passy muri valve on trach with all meals - Monitor labs - Supportive care - Further recommendations to follow based on results of above - Pt seen and examined by Dr. Alejandra and myself and this note is written on his behalf Maggie Mederos Jun 05, 2017 13:40
[2017-06-05] MEDS: traZODone HCL 50 MG TAB PO SCH (20:14)
[2017-06-05] MEDS: MORPHINE SULFATE 8 MG/ML INJ IV PUSH PRN (21:48)
[2017-06-06] VITALS (8 sets, daily range): BP systolic 102–122; BP diastolic 59–70; PULSE 63–78; RESP 18–20; TEMP 97.4–97.9; O2SAT 89–100
[2017-06-06] MEDS: LORazepam 2 MG/ML VIAL IV PUSH PRN (00:22)
[2017-06-06] MEDS ORDERED: INSULIN HUMAN REGULAR 1,000 UNITS/10 ML VIAL SQ PRN (06:45)
[2017-06-06] MEDS ORDERED: METOPROLOL TARTRATE 25 MG TAB PO PRN (06:45)
[2017-06-06] MEDS ORDERED: POVIDONE IODINE 5% (ANTISEPSIS KIT) 4 APPLICATIONS EACH NARE PRN (06:45)
[2017-06-06] MEDS ORDERED: LACTATED RINGER'S 1000 ML IV PRN (06:45)
[2017-06-06] MEDS ORDERED: SODIUM CHLORID 0.9% 500 ML IV PRN (06:45)
[2017-06-06] MEDS ORDERED: CHLORHEXIDINE GLUCONATE 2 % 1 PACK (2 CLOTHS) TOPICAL PRN (06:45)
[2017-06-06 08:20] LABS: BICARBONATE 29.1 MEQ/L (21.0-32.0)
[2017-06-06] MEDS: levETIRAcetam 1000 MG INJ 100 ML IV SCH ×2 (08:30→20:34)
[2017-06-06] MEDS: SODIUM CHLORIDE 0.9% FLUSH 10 ML FLUSH IVF PRN (08:30)
[2017-06-06] MEDS: ARTIFICIAL TEARS OPTH SOLN 15 ML BTL EACH EYE SCH ×3 (08:46→17:55)
[2017-06-06] MEDS: CHLORHEXIDINE 0.12% (ORAL KIT) 15 ML CUP MT SCH ×2 (08:46→20:00)
[2017-06-06] MEDS: FUROSEMIDE 40 MG TAB PO SCH (08:47)
[2017-06-06] MEDS: FOLIC ACID 1 MG TAB PEG SCH (08:47)
[2017-06-06] MEDS: LACTOBACILLUS ACIDOPHILUS TAB PO SCH ×3 (08:47→17:54)
[2017-06-06] MEDS: LANSOPRAZOLE SOLUTAB 30 MG TAB NG SCH (08:47)
[2017-06-06] MEDS: MUPIROCIN 2% OINT 1 APPLIC/GM SYR EACH NARE SCH ×2 (08:48→20:34)
[2017-06-06] MEDS: THIAMINE HCL 100 MG TAB PO SCH (08:48)
[2017-06-06] MEDS: NYSTATIN 100,000 U/GM PWD 15 GM BTL TOPICAL SCH ×2 (08:50→20:36)
[2017-06-06] MEDS: SODIUM HYPOCHLORITE 0.125% 500 ML BTL TOPICAL SCH (08:50)
[2017-06-06] MEDS ORDERED: ceFAZolin INJ 1,000 MG VIAL IV ONE (09:44)
[2017-06-06] MEDS ORDERED: diphenhydrAMINE HCL 50 MG/ML VIAL IV ONE (09:58)
--- NOTE | 2017-06-06 10:11 | HHI.GIFU ---
Subjective Remarks Immediate postop note: EGD with PEG placement Indication: Nutritional support, dysphagia. Meds: MAC Findings: Esophagus: small distal varices Stomach: previous PEG site visible, no complication there. Excellent transillumination and indentation adjacent to the previous PEG site. PEG placed in usual way without complication Duodenum: normal Relook confirms excellent internal retainer position Objective Vitals I&O Vital Signs Date Time Temp Pulse Resp B/P Pulse Ox O2 Delivery O2 Flow Rate FiO2 06/06/17 08:00 97.9 63 18 106/63 95 06/06/17 07:43 98 Trach Collar 28 06/06/17 04:00 97.8 75 18 102/59 96 06/06/17 00:00 97.6 74 18 106/63 97 06/05/17 20:00 76 06/05/17 17:59 93 21 06/05/17 16:00 97.7 78 20 116/66 93 06/05/17 12:22 97.6 77 20 110/64 93 06/05/17 12:00 97.6 77 20 110/64 93 I/O 06/05/17 06/05/17 06/05/17 06/06/17 06/06/17 06/06/17 07:00 15:00 23:00 07:00 15:00 23:00 Intake Total 240 ml 120 ml Output Total 100 ml 800 ml 400 ml 450 ml Balance -100 ml -560 ml -280 ml -450 ml Intake Oral 240 ml 120 ml Output Urine Total 100 ml 800 ml 400 ml 450 ml # Bowel Movements 4 1 Laboratory Laboratory Tests Test 06/06/17 07:30 Sodium Level 137 Potassium Level 3.0 Chloride Level 101 Carbon Dioxide Level 29.1 Anion Gap 7 Blood Urea Nitrogen 8 Creatinine 0.39 Estimat Glomerular Filtration 227 Rate Random Glucose 87 Calcium Level 9.0 Date/Time Procedure Status Source Growth 06/01/17 12:30 Gram Stain - Final Complete Wound Abdomen 06/01/17 12:30 Wound Culture - Final Complete Pseudomonas Aeruginosa Enterococcus Faecalis Physical Exam HEENT: Normocephalic; atraumatic; poor dentition CHEST: Coarse sounds, trach with passey cheri valve CARDIAC: RRR ABDOMEN: +BS, soft, mildly distended, previous peg site wound healing. EXTREMITIES: no cyanosis, edema SKIN: no rash; no jaundice. 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 Pt had a previous PEG tube placed on 04/15/[address] Curran. PEG was accidentally dislodged on 05/31/17. Site had erythema/drainage, cx grew psae, enterococcus D. On levaquin. Site improving. Pt is eating some po, but states he can only take small amounts and wants his TF replaced. ST following, soft diet with thin liquids/no straws/passey cheri valve on while eating. - Alcoholic liver disease/evidence of cirrhosis. Pt with hx of alcohol abuse. MELD 25. CT Abd/pelvis (05-08-17) --> significant fluid throughout abdomen and pelvis with what appears to be cirrhotic looking liver and splenomegaly, significant sm bowel wall thickening throughout lower abd and upper pelvis w/o evidence obstruction. LFTs last checked on 05/12 were stable. - Anemia. HH stable at 9.4/27.5. No active bleeding. - Resp. Failure/PNA. Has passey cheri valve in place. Pt with a lot of secretions. 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 thalamic CVA. S/P Neuro eval. Lactulose, Xifaxan. - Leukocytosis with UTI (S/P Tx), PNA. Sputum culture on 05/30 growing gram negative rods. Management per attending. - CHF, Hx hypothyroidism per [facility] PLAN: -OK to use tube for meds and flush today, OK to use for tube feeding tomorrow. - Pt had hives at end of procedure, possible allergy to ancef. - ST following, soft diet with thin liquids, no straws, and passy cheri valve in place while eating - Cont. Abx. - per [facility] soft diet, thin liquids, no straws, passy muri valve on trach with all meals - Monitor labs - Supportive care - Benadryl given IV. - Benadryl 50mg PO or per PEG q 6 hours x 3 doses, then prn. Madi Alejandra MD Jun 06, 2017 10:11
[2017-06-06] MEDS ORDERED: PROPOFOL 200 MG/20 ML AMP IV ONE (10:37)
[2017-06-06] MEDS: LEVOFLOXACIN 500 MG PREMIX INJ 100 ML IV SCH (11:57)
[2017-06-06] MEDS: diphenhydrAMINE HCL ELIXIR 12.5 MG/5 ML CUP PEG SCH ×3 (11:57→23:08)
--- NOTE | 2017-06-06 13:07 | HHI.PR ---
Subjective Remarks Follow-up for hyponatremia, osmotic demyelination syndrome. Patient seen and examined today, lying in bed post PEG insertion. Patient sleeping, awakens to voice. Denies pain. In better spirits today. Denies any new acute events overnight. States he did not sleep well. Afebrile. Vitals stable. Tolerating PO intake, denies any abdominal pain, nausea or vomiting. Objective Vitals Vital Signs Date Time Temp Pulse Resp B/P Pulse Ox O2 Delivery O2 Flow Rate FiO2 06/06/17 10:30 66 18 98/66 99 06/06/17 10:20 65 18 98/65 98 06/06/17 10:10 98.1 65 18 98/66 98 06/06/17 08:00 97.9 63 18 106/63 95 06/06/17 07:43 98 Trach Collar 28 06/06/17 04:00 97.8 75 18 102/59 96 06/06/17 00:00 97.6 74 18 106/63 97 06/05/17 20:00 76 06/05/17 17:59 93 21 06/05/17 16:00 97.7 78 20 116/66 93 I/O 06/05/17 06/05/17 06/05/17 06/06/17 06/06/17 06/06/17 07:00 15:00 23:00 07:00 15:00 23:00 Intake Total 240 ml 120 ml 400 ml Output Total 100 ml 800 ml 400 ml 450 ml Balance -100 ml -560 ml -280 ml -450 ml 400 ml Intake Oral 240 ml 120 ml Other 400 ml Output Urine Total 100 ml 800 ml 400 ml 450 ml # Bowel Movements 4 1 Result Diagram: 06/05/17 0740 06/06/17 0730 Imaging Last Impressions Chest X-Ray 05/16/17 0000 Signed Impressions: Service Date/Time: May 12:56 - CONCLUSION: Improving lung aeration with decreasing air space disease. Persistent left basilar consolidation. Carlos Galindo MD Abdomen/Pelvis CT 05/08/17 0000 Signed Impressions: Service Date/Time: Monday, May 08, 2017 23:10 - CONCLUSION: Significant fluid throughout the abdomen and the pelvis with what appears to be a cirrhotic appearing liver and splenomegaly. There is significant small bowel wall thickening throughout the lower abdomen and the upper pelvis without evidence of obstruction Milo Muhammad MD Abdomen X-Ray 05/08/17 0000 Signed Impressions: Service Date/Time: Monday, May 08, 2017 15:30 - CONCLUSION: 1. There is diffuse, mild gaseous distention of the small bowel. No findings to indicate obstruction. Mihir Harry MD Liver Ultrasound 04/15/17 0000 Signed Impressions: Service Date/Time: Saturday, April 15, 2017 09:24 - CONCLUSION: 1. Abnormal appearance of the pancreas with a nonspecific hypoechoic area involving the posterior part of the pancreas along the head and body region. Recommend CT scan of the abdomen with oral and IV contrast further evaluation. 2. Fatty infiltration throughout the liver. 3. There is thickening of the gallbladder wall at 6 mm. This is suggestive of chronic gallbladder disease. 4. Small amount of free fluid adjacent to the liver and spleen in the upper abdomen.. 5. Right-sided pleural effusion. Víctor Rosas MD Head CT 04/12/17 0000 Signed Impressions: Service Date/Time: Wednesday, April 12, 2017 21:30 - CONCLUSION: Pontine encephalomalacia. Left mastoiditis. Casper Alva MD Head Magnetic Resonance Angiography 03/28/17 0000 Signed Impressions: Service Date/Time: March 17:22 - CONCLUSION: Unremarkable examination. Bety Castillo MD Brain MRI 03/28/17 0000 Signed Impressions: Service Date/Time: March 17:22 - CONCLUSION: 1. 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 Small subacute ischemic bilateral thalamic infarcts. 2. There has been no significant change when compared to the prior exam. Yinka Harman MD Lower Extremity Ultrasound 03/25/17 0000 Signed Impressions: Service Date/Time: Saturday, March 25, 2017 22:17 - CONCLUSION: No evidence of DVT. Víctor Rosas MD CT Angiography 03/21/17 0000 Signed Impressions: Service Date/Time: March 00:33 - CONCLUSION: No evidence of pulmonary embolism is identified. Mild atelectasis left lung base. Fluid or phlegm within the trachea. Milo Muhammad MD Abdomen Ultrasound 03/20/17 0000 Signed Impressions: Service Date/Time: Monday, March 20, 2017 11:38 - CONCLUSION: 1. Hepatosplenomegaly without focal lesion. 2. Probable sludge within the lumen of the gallbladder. No intrahepatic duct. Cheo Martínez MD Shoulder X-Ray 03/02/17 1404 Signed Impressions: Service Date/Time: Thursday, March 02, 2017 15:18 - CONCLUSION: No evidence of recent bony injury. Deformity of the lateral left clavicle suggests old healed trauma. Cheo Martínez MD Maxillofacial CT 03/02/17 1342 Signed Impressions: Service Date/Time: Thursday, March 02, 2017 14:52 - CONCLUSION: Negative CT of the facial bones. Cheo Martínez MD Chest CT 03/02/17 1342 Signed Impressions: Service Date/Time: Thursday, March 02, 2017 15:04 - CONCLUSION: 1. Abnormal appearance of the lateral left clavicle suggesting a combination of acute and chronic bony injury. Fracture lucencies without bridging callus is seen the region of the coracoid process. 2. The lungs are clear. No evidence of pneumothorax. 3. Moderate size hiatus hernia. Cheo Martínez MD Cervical Spine CT 03/02/17 1342 Signed Impressions: Service Date/Time: Thursday, March 02, 2017 14:52 - CONCLUSION: Negative CT cervical spine. Cheo Martínez MD Objective Remarks GENERAL: Well-nourished, well-developed male patient lying in bed in no apparent distress on PMV with supplemental O2, tolerating well. SKIN: Warm and dry. Trach site with dressing in place. No edema noted. HEENT: Normocephalic. No scleral icterus. No injection or drainage. NECK: Supple, trachea midline. No JVD. CARDIOVASCULAR: Regular rate and rhythm. No murmur appreciated. RESPIRATORY: Breath sounds equal bilaterally. Distant breath sounds noted throughout. No accessory muscle use. GASTROINTESTINAL: Abdomen soft, non-tender, nondistended. New PEG site, dressing in place, c/d/i. EXTREMITIES: No cyanosis, or edema. NEUROLOGICAL: Awake, alert, and oriented x 3 Procedures 03/02/2017 - arterial line and central line placement. 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 Sandhu is a 61 year old male with a history of alcohol abuse, severe hypernatremia who presented to the ED on 03/02/2017 due to worsening fatigue, weakness that started 13 days prior to this hospitalization. He was found to have significant delirium. He admitted to drinking alcohol as well as taking xanax as well. ED work up indicated Na 99, Bilirubin 8.9, Lactate 9.8, Ammonia 60, CK 7000, troponin 4.9, Creatinine 1.5, bicarb 13. His WBC was 12, Platelets 112, INR 1.9. Meld score 26. He was severely hydrated. Patient was started on isotonic saline in an effort to improve hypovolemia. Patients sodium corrected too rapidly. Patient was treated for distributive shock, alcohol withdrawal and electrolyte imbalances in the ICU. 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 Chronic severe hyponatremia Bilateral thalamic stroke Seizures - Continue Keppra 1000 mg every 12 hours. - Lorazepam 1 mg every 12 hours PO for seizures. Alcoholic liver disease Alcohol dependence Lower extremity thigh edema, improving - CT abdomen shows liver cirrhosis. - DCd rifaximin. Monitor neuro status. - Continue folic acid and thiamine. - Decrease Furosemide from 40 to 20 mg PO daily. - Start on KCL eff 25 meq PO daily while on Lasix. - Monitor UO, electrolytes and intake closely while on diuretics. - PT and OT services continue, endurance is currently poor/highly limited. Acute hypoxemic and hypercapnic respiratory failure - Status post tracheostomy on 04/16/2017. Pulmonology following. - Levsin available PRN for increased tracheal secretions. - Continue Duonebs scheduled. PEG site infection - PEG site culture growing pseudomonas and Group D Enterococcus on 06/01/17 - PEG placed today by GI. - Speech following patient, tolerating PO intake. Recommendations for mechanical soft and thin liquids. Monitor PO intake closely. Monitor for aspiration. - Continue Levaquin (started 06/01/17) for infected PEG site. DC after 7-10 course. Monitor. Depression Insomnia - Continue Trazodone 50 mg PO HS. Monitor for effect or over sedation. - Discontinued Ativan IV PRN for anxiety in order to avoid oversedation. - Monitor for suicidal ideation. No suicidal ideation at this time. Upper respiratory bacterial infection, acute on chronic: Likely colonization and source of active infection. - Sputum culture growing Pseudomonas aeruginosa and Group D Enterococcus on 05/30/17. - Continue Levaquin 500 mg IV q24 hr. Urinary tract infection, resolved. - Urine culture + Klebsiella pneumoniae and Enterococcus faecalis. - DCd ceftriaxone, course completed. Prolonged immobility: Continue PT. Request stretcher chair and possibility of tolerating daily during meals. Chronic pain: Continue Roxanol 5 mg PO q4h PRN per pain scale. Continue Morphine 5 mg IV q4h PRN per pain scale. Hypokalemia: K 3.0 today after replacement yesterday 06/06. Started on scheduled kcl eff 25 meq PO daily. Replaced with KCL eff 25 meq x 1 now and a total of potassium 40 meq IV. Recheck in am. GI prophylaxis: Prevacid DVT Prophylaxis: Resume Heparin subcutaneous tomorrow am, was on hold for procedure. Full code. Discharge Planning Last CM note: 06/05/17 [facility] still evaluating this pt for possible placement referral was given to Carina mcintyre for facility Attending Statement Seen and discussed with DEB Devlin, continue awaiting for Placement. Nayeli Devlin Jun 06, 2017 13:07 Praveen Kent MD Jun 07, 2017 13:53
[2017-06-06] MEDS: POTASSIUM CHLOR 20 MEQ PREMIX 100 ML IV SCH ×2 (15:00→17:54)
[2017-06-06] MEDS: POTASSIUM CHLORIDE 25 MEQ EFFERVESCENT TAB NG SCH (15:00)
[2017-06-06] MEDS: MORPHINE SULFATE 8 MG/ML INJ IV PUSH PRN (15:05)
[2017-06-06] MEDS: MORPHINE SULFATE ORAL SOLN 10 MG/0.5 ML SYRINGE G-TUBE PRN ×2 (18:56→23:10)
[2017-06-06] MEDS: traZODone HCL 50 MG TAB PO SCH (20:35)
--- NOTE | 2017-06-06 21:19 | MR ---
cc: MADI ALEJANDRA MD DATE OF SURGERY 06/06/2017 PROCEDURE Esophagogastroduodenoscopy with PEG tube placement. INDICATION Need for nutritional support because of dysphagia, previous PEG tube became infected and was discontinued. PROCEDURE After informed consent was obtained the patient referring physician is Dr. Simone Perry PROCEDURE After informed consent was obtained the patient placed in the supine position. He was sedated by the anesthesia service. After adequate sedation was achieved the Pentax video gastroscope was inserted in the oropharynx and advanced to the esophagus, the stomach and into the duodenum. It was then slowly withdrawn examining the mucosal surfaces carefully. Retroflex examination was performed. The scope was then straightened and the stomach was inflated well. Transillumination was identified and excellent indentation was also demonstrated adjacent to the previous PEG tube site, this site was chosen. The skin was disinfected with the Betadine. It was then anesthetized with 1% Xylocaine in the skin and subcutaneous tissue. A scalpel was used to make an incision in the skin and superficial part of the subcutaneous tissue. The needle and catheter were then inserted in direct visualization into the stomach without difficulty. The catheter was then grasped with a snare and the guidewire was fed into the lumen of the stomach. It was grasped with a snare and pulled out the mouth. The PEG tube was then attached to the wire and pulled back through the mouth into the stomach and then out into position. The scope was then reinserted to confirm the proper location of the PEG tube internal bumper. The tube was then affixed to the abdominal wall with the retainer and the other attachments were made. The abdomen was bandaged. The scope was then withdrawn. At that point it was noticed that the patient had several hives on the upper part of his chest and neck. He was having no evidence of wheezing or any other serious condition. However, he was given Benadryl intravenously. The procedure was then terminated. He tolerated the procedure well and was returned to the recovery area in good condition. FINDINGS 1. The esophagus showed some small distal varices after passage of the PEG tube through the esophagus there was no evidence of complication. 2. In the stomach the previous PEG tube site was visible. There was no evidence of complication there. The PEG tube site was chosen adjacent to the previous site a few inches medial. The PEG tube was placed without apparent complication in the usual way as described above. 3. The duodenum appeared normal. 4. Relook exam confirmed excellent internal retainer location. IMPRESSION 1. Esophageal varices. 2. Successful PEG tube placement. PLAN 1. The PEG tube may be used for medication and flush with water today and okay to use for tube feeding beginning tomorrow. 2. This patient had hives at the end of the procedure. He has a possible allergy to Ancef. 3. We will give Benadryl 25 milligrams p.o. or through the PEG tube q.4 hours x3 doses and then as needed. Madi Alejandra MD HHS/EO /10:23 AM /9:09 PM
[2017-06-07] VITALS (8 sets, daily range): BP systolic 93–100; BP diastolic 52–60; PULSE 66–81; RESP 12–22; TEMP 97.5–98.2; O2SAT 95–100
[2017-06-07] MEDS: CHLORHEXIDINE 0.12% (ORAL KIT) 15 ML CUP MT SCH ×2 (08:00→20:00)
[2017-06-07] MEDS: POTASSIUM CHLORIDE 25 MEQ EFFERVESCENT TAB NG SCH (08:34)
[2017-06-07] MEDS: LANSOPRAZOLE SOLUTAB 30 MG TAB NG SCH (08:34)
[2017-06-07] MEDS: LACTOBACILLUS ACIDOPHILUS TAB PO SCH ×3 (08:34→17:17)
[2017-06-07] MEDS: THIAMINE HCL 100 MG TAB PO SCH (08:34)
[2017-06-07] MEDS: FOLIC ACID 1 MG TAB PEG SCH (08:34)
[2017-06-07] MEDS: SODIUM CHLORIDE 0.9% FLUSH 10 ML FLUSH IVF PRN (08:36)
[2017-06-07] MEDS: MUPIROCIN 2% OINT 1 APPLIC/GM SYR EACH NARE SCH ×2 (08:37→20:41)
[2017-06-07] MEDS: levETIRAcetam 1000 MG INJ 100 ML IV SCH ×2 (08:37→20:48)
[2017-06-07] MEDS: SODIUM HYPOCHLORITE 0.125% 500 ML BTL TOPICAL SCH (08:39)
[2017-06-07] MEDS: NYSTATIN 100,000 U/GM PWD 15 GM BTL TOPICAL SCH ×2 (08:39→20:49)
[2017-06-07] MEDS: ARTIFICIAL TEARS OPTH SOLN 15 ML BTL EACH EYE SCH ×3 (08:39→17:19)
[2017-06-07] MEDS: FUROSEMIDE 20 MG TAB PO SCH (08:46)
[2017-06-07] MEDS: HEPARIN SODIUM - SQ 10,000 UNITS/ML VIAL SQ SCH ×2 (09:00→20:40)
[2017-06-07 09:23] LABS: BICARBONATE 25.1 MEQ/L (21.0-32.0); POTASSIUM 3.6 MEQ/L (3.5-5.1)
--- NOTE | 2017-06-07 11:13 | HHI.PR ---
Subjective Remarks Follow-up for hyponatremia, osmotic demyelination syndrome. Patient seen and examined today, lying in bed awake and alert. OT at bedside. Patient had PEG placed yesterday. Dressing c/d/i. Tolerating PO intake, denies any nausea and vomiting. Does complain of tenderness around PEG site to palpation. Also complain of pain to wound to back side. Requesting PRN pain medication. Objective Vitals Vital Signs Date Time Temp Pulse Resp B/P Pulse Ox O2 Delivery O2 Flow Rate FiO2 06/07/17 10:40 Aerosol Mask 28 06/07/17 08:00 97.7 81 22 93/52 95 06/07/17 04:00 97.9 75 12 94/56 95 06/07/17 00:00 97.8 77 20 97/56 95 06/06/17 20:27 96 Trach Collar 5.00 28 06/06/17 20:00 97.6 78 20 112/64 100 06/06/17 20:00 78 06/06/17 20:00 Trach Collar 6.00 28 06/06/17 20:00 97.6 78 20 112/64 100 06/06/17 16:11 Trach Collar 6.00 28 06/06/17 16:00 97.5 77 18 111/62 89 06/06/17 12:00 Trach Collar 5.00 28 06/06/17 12:00 97.4 67 18 122/70 95 I/O 06/06/17 06/06/17 06/06/17 06/07/17 06/07/17 06/07/17 07:00 15:00 23:00 07:00 15:00 23:00 Intake Total 710 ml 985 ml 0 ml Output Total 450 ml 450 ml 800 ml 375 ml Balance -450 ml 260 ml 185 ml -375 ml Intake Oral 120 ml 240 ml 0 ml IV Total 190 ml 745 ml Other 400 ml Output Urine Total 450 ml 450 ml 800 ml 375 ml # Bowel Movements 0 0 Result Diagram: 06/05/17 0740 06/07/17 0851 Imaging Last Impressions Chest X-Ray 05/16/17 0000 Signed Impressions: Service Date/Time: May 12:56 - CONCLUSION: Improving lung aeration with decreasing air space disease. Persistent left basilar consolidation. Carlos Galindo MD Abdomen/Pelvis CT 05/08/17 0000 Signed Impressions: Service Date/Time: Monday, May 08, 2017 23:10 - CONCLUSION: Significant fluid throughout the abdomen and the pelvis with what appears to be a cirrhotic appearing liver and splenomegaly. There is significant small bowel wall thickening throughout the lower abdomen and the upper pelvis without evidence of obstruction Milo Muhammad MD Abdomen X-Ray 05/08/17 Signed Impressions: Service Date/Time: Monday, May 08, 2017 15:30 - CONCLUSION: 1. There is diffuse, mild gaseous distention of the small bowel. No findings to indicate obstruction. Mihir Harry MD Liver Ultrasound 04/15/17 0000 Signed Impressions: Service Date/Time: Saturday, April 15, 2017 09:24 - CONCLUSION: 1. Abnormal appearance of the pancreas with a nonspecific hypoechoic area involving the posterior part of the pancreas along the head and body region. Recommend CT scan of the abdomen with oral and IV contrast further evaluation. 2. Fatty infiltration throughout the liver. 3. There is thickening of the gallbladder wall at 6 mm. This is suggestive of chronic gallbladder disease. 4. Small amount of free fluid adjacent to the liver and spleen in the upper abdomen.. 5. Right-sided pleural effusion. Víctor Rosas MD Head CT 04/12/17 0000 Signed Impressions: Service Date/Time: Wednesday, April 12, 2017 21:30 - CONCLUSION: Pontine encephalomalacia. Left mastoiditis. Casper Alva MD Head Magnetic Resonance Angiography 03/28/17 0000 Signed Impressions: Service Date/Time: March 17:22 - CONCLUSION: Unremarkable examination. Bety Castillo MD Brain MRI 03/28/17 0000 Signed Impressions: Service Date/Time: March 17:22 - CONCLUSION: 1. 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 Small subacute ischemic bilateral thalamic infarcts. 2. There has been no significant change when compared to the prior exam. Yinka Harman MD Lower Extremity Ultrasound 03/25/17 0000 Signed Impressions: Service Date/Time: Saturday, March 25, 2017 22:17 - CONCLUSION: No evidence of DVT. Víctor Rosas MD CT Angiography 03/21/17 0000 Signed Impressions: Service Date/Time: March 00:33 - CONCLUSION: No evidence of pulmonary embolism is identified. Mild atelectasis left lung base. Fluid or phlegm within the trachea. Milo Muhammad MD Abdomen Ultrasound 03/20/17 0000 Signed Impressions: Service Date/Time: Monday, March 20, 2017 11:38 - CONCLUSION: 1. Hepatosplenomegaly without focal lesion. 2. Probable sludge within the lumen of the gallbladder. No intrahepatic duct. Cheo Martínez MD Shoulder X-Ray 03/02/17 1404 Signed Impressions: Service Date/Time: Thursday, March 02, 2017 15:18 - CONCLUSION: No evidence of recent bony injury. Deformity of the lateral left clavicle suggests old healed trauma. Cheo Martínez MD Maxillofacial CT 03/02/17 1342 Signed Impressions: Service Date/Time: Thursday, March 02, 2017 14:52 - CONCLUSION: Negative CT of the facial bones. Cheo Martínez MD Chest CT 03/02/17 1342 Signed Impressions: Service Date/Time: Thursday, March 02, 2017 15:04 - CONCLUSION: 1. Abnormal appearance of the lateral left clavicle suggesting a combination of acute and chronic bony injury. Fracture lucencies without bridging callus is seen the region of the coracoid process. 2. The lungs are clear. No evidence of pneumothorax. 3. Moderate size hiatus hernia. Cheo Martínez MD Cervical Spine CT 03/02/17 1342 Signed Impressions: Service Date/Time: Thursday, March 02, 2017 14:52 - CONCLUSION: Negative CT cervical spine. Cheo Martínez MD Objective Remarks GENERAL: Well-nourished, well-developed male patient lying in bed in no apparent distress. SKIN: Warm and dry. Trach site with dressing in place. No edema noted. HEENT: Normocephalic. No scleral icterus. No injection or drainage. NECK: Supple, trachea midline. No JVD. CARDIOVASCULAR: Regular rate and rhythm. No murmur appreciated. RESPIRATORY: Breath sounds equal bilaterally. Distant breath sounds noted throughout. No accessory muscle use. GASTROINTESTINAL: Abdomen soft,nondistended. PEG site, dressing in place, c/d/ i. Some tenderness to palpation to area. EXTREMITIES: No cyanosis, or edema. NEUROLOGICAL: Awake, alert, and oriented x 3 Procedures 03/02/2017 - arterial line and central line placement. 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 Sandhu is a 61 year old male with a history of alcohol abuse, severe hypernatremia who presented to the ED on 03/02/2017 due to worsening fatigue, weakness that started 13 days prior to this hospitalization. He was found to have significant delirium. He admitted to drinking alcohol as well as taking xanax as well. ED work up indicated Na 99, Bilirubin 8.9, Lactate 9.8, Ammonia 60, CK 7000, troponin 4.9, Creatinine 1.5, bicarb 13. His WBC was 12, Platelets 112, INR 1.9. Meld score 26. He was severely hydrated. Patient was started on isotonic saline in an effort to improve hypovolemia. Patients sodium corrected too rapidly. Patient was treated for distributive shock, alcohol withdrawal and electrolyte imbalances in the ICU. 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 Chronic severe hyponatremia Bilateral thalamic stroke Seizures - Continue Keppra 1000 mg every 12 hours. - Lorazepam 1 mg every 12 hours PO for seizures. Alcoholic liver disease Alcohol dependence Lower extremity thigh edema, improving - CT abdomen shows liver cirrhosis. - Continue folic acid and thiamine. - Decrease Furosemide from 40 to 20 mg PO daily. - KCL eff 25 meq PO daily while on Lasix. - Monitor UO, electrolytes and intake closely while on diuretics. - PT and OT services continue, endurance is currently poor/highly limited. Acute hypoxemic and hypercapnic respiratory failure - Status post tracheostomy on 04/16/2017. Pulmonology following. - Levsin available PRN for increased tracheal secretions. - Continue Duonebs scheduled. PEG site infection - PEG site culture growing pseudomonas and Group D Enterococcus on 06/01/17 - PEG placed today by GI. - Speech following patient, tolerating PO intake. Recommendations for mechanical soft and thin liquids. Monitor PO intake closely. Monitor for aspiration. - Continue Levaquin (started 06/01/17) for infected PEG site. DC after 7-10 course. Monitor. Depression Insomnia - Continue Trazodone 50 mg PO HS. Monitor for effect or over sedation. - Discontinued Ativan IV PRN for anxiety in order to avoid oversedation. - Monitor for suicidal ideation. No suicidal ideation at this time. Upper respiratory bacterial infection, acute on chronic: Likely colonization and source of active infection. - Sputum culture growing Pseudomonas aeruginosa and Group D Enterococcus on 05/30/17. - Continue Levaquin 500 mg IV q24 hr. Urinary tract infection, resolved. - Urine culture + Klebsiella pneumoniae and Enterococcus faecalis. - DCd ceftriaxone, course completed. Prolonged immobility: Continue PT. Request stretcher chair and possibility of tolerating daily during meals. Chronic pain: Continue Roxanol 5 mg PO q4h PRN per pain scale. Continue Morphine 5 mg IV q4h PRN per pain scale. Hypokalemia: K 3.6 today after replacement yesterday 06/06.Continue kcl eff 25 meq PO daily. GI prophylaxis: Prevacid DVT Prophylaxis: Resume Heparin Full code. Discharge Planning Last CM note: 06/05/17 [facility] still evaluating this pt for possible placement [facility] Attending Statement patient evaluated and discussed with [facility] no new issues, replaced Electrolytes, awaiting for Placement. Nayeli Devlin Jun 07, 2017 11:13 Praveen Kent MD Jun 07, 2017 13:56
[2017-06-07] MEDS: MORPHINE SULFATE ORAL SOLN 10 MG/0.5 ML SYRINGE G-TUBE PRN ×3 (11:30→20:44)
[2017-06-07] MEDS: LEVOFLOXACIN 500 MG PREMIX INJ 100 ML IV SCH (11:30)
--- NOTE | 2017-06-07 12:22 | HHI.GIFU ---
Subjective Remarks Resting in bed. No n/v. Mild tenderness at PEG tube site, but no significant pain. States he is tolerating liquid diet. His meals are not being consistently recorded. Objective Vitals I&O Vital Signs Date Time Temp Pulse Resp B/P Pulse Ox O2 Delivery O2 Flow Rate FiO2 06/07/17 10:40 Aerosol Mask 28 06/07/17 08:00 97.7 81 22 93/52 95 06/07/17 04:00 97.9 75 12 94/56 95 06/07/17 00:00 97.8 77 20 97/56 95 06/06/17 20:27 96 Trach Collar 5.00 28 06/06/17 20:00 97.6 78 20 112/64 100 06/06/17 20:00 78 06/06/17 20:00 Trach Collar 6.00 28 06/06/17 20:00 97.6 78 20 112/64 100 06/06/17 16:11 Trach Collar 6.00 28 06/06/17 16:00 97.5 77 18 111/62 89 I/O 06/06/17 06/06/17 06/06/17 06/07/17 06/07/17 06/07/17 07:00 15:00 23:00 07:00 15:00 23:00 Intake Total 710 ml 985 ml 0 ml Output Total 450 ml 450 ml 800 ml 375 ml Balance -450 ml 260 ml 185 ml -375 ml Intake Oral 120 ml 240 ml 0 ml IV Total 190 ml 745 ml Other 400 ml Output Urine Total 450 ml 450 ml 800 ml 375 ml # Bowel Movements 0 0 Laboratory Laboratory Tests Test 06/07/17 08:51 Sodium Level 136 Potassium Level 3.6 Chloride Level 103 Carbon Dioxide Level 25.1 Anion Gap 8 Blood Urea Nitrogen 7 Creatinine 0.47 Estimat Glomerular Filtration 183 Rate Random Glucose 113 Calcium Level 9.3 Imaging Last Impressions Chest X-Ray 05/16/17 0000 Signed Impressions: Service Date/Time: May 12:56 - CONCLUSION: Improving lung aeration with decreasing air space disease. Persistent left basilar consolidation. Carlos Galindo MD Abdomen/Pelvis CT 05/08/17 0000 Signed Impressions: Service Date/Time: Monday, May 08, 2017 23:10 - CONCLUSION: Significant fluid throughout the abdomen and the pelvis with what appears to be a cirrhotic appearing liver and splenomegaly. There is significant small bowel wall thickening throughout the lower abdomen and the upper pelvis without evidence of obstruction Milo Muhammad MD Abdomen X-Ray 05/08/17 Signed Impressions: Service Date/Time: Monday, May 08, 2017 15:30 - CONCLUSION: 1. There is diffuse, mild gaseous distention of the small bowel. No findings to indicate obstruction. Mihir Harry MD Liver Ultrasound 04/15/17 0000 Signed Impressions: Service Date/Time: Saturday, April 15, 2017 09:24 - CONCLUSION: 1. Abnormal appearance of the pancreas with a nonspecific hypoechoic area involving the posterior part of the pancreas along the head and body region. Recommend CT scan of the abdomen with oral and IV contrast further evaluation. 2. Fatty infiltration throughout the liver. 3. There is thickening of the gallbladder wall at 6 mm. This is suggestive of chronic gallbladder disease. 4. Small amount of free fluid adjacent to the liver and spleen in the upper abdomen.. 5. Right-sided pleural effusion. Víctor Rosas MD Head CT 04/12/17 0000 Signed Impressions: Service Date/Time: Wednesday, April 12, 2017 21:30 - CONCLUSION: Pontine encephalomalacia. Left mastoiditis. Casper lAva MD Head Magnetic Resonance Angiography 03/28/17 0000 Signed Impressions: Service Date/Time: March 17:22 - CONCLUSION: Unremarkable examination. Bety Castillo MD Brain MRI 03/28/17 0000 Signed Impressions: Service Date/Time: March 17:22 - CONCLUSION: 1. 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 Small subacute ischemic bilateral thalamic infarcts. 2. There has been no significant change when compared to the prior exam. Yinka Harman MD Lower Extremity Ultrasound 03/25/17 0000 Signed Impressions: Service Date/Time: Saturday, March 25, 2017 22:17 - CONCLUSION: No evidence of DVT. Víctor Rosas MD CT Angiography 03/21/17 0000 Signed Impressions: Service Date/Time: March 00:33 - CONCLUSION: No evidence of pulmonary embolism is identified. Mild atelectasis left lung base. Fluid or phlegm within the trachea. Milo Muhammad MD Abdomen Ultrasound 03/20/17 0000 Signed Impressions: Service Date/Time: Monday, March 20, 2017 11:38 - CONCLUSION: 1. Hepatosplenomegaly without focal lesion. 2. Probable sludge within the lumen of the gallbladder. No intrahepatic duct. Cheo Martínez MD Shoulder X-Ray 03/02/17 1404 Signed Impressions: Service Date/Time: Thursday, March 02, 2017 15:18 - CONCLUSION: No evidence of recent bony injury. Deformity of the lateral left clavicle suggests old healed trauma. Cheo Martínez MD Maxillofacial CT 03/02/17 1342 Signed Impressions: Service Date/Time: Thursday, March 02, 2017 14:52 - CONCLUSION: Negative CT of the facial bones. Cheo Martínez MD Chest CT 03/02/17 1342 Signed Impressions: Service Date/Time: Thursday, March 02, 2017 15:04 - CONCLUSION: 1. Abnormal appearance of the lateral left clavicle suggesting a combination of acute and chronic bony injury. Fracture lucencies without bridging callus is seen the region of the coracoid process. 2. The lungs are clear. No evidence of pneumothorax. 3. Moderate size hiatus hernia. Cheo Martínez MD Cervical Spine CT 03/02/17 1342 Signed Impressions: Service Date/Time: Thursday, March 02, 2017 14:52 - CONCLUSION: Negative CT cervical spine. Cheo Martínez MD Physical Exam HEENT: Normocephalic; atraumatic; poor dentition CHEST: Coarse sounds, trach with passey cheri valve CARDIAC: RRR ABDOMEN: Abdomen soft, mildly distended, previous peg site wound healing. Bowel sounds present. PEG tube site with small amount of old blood noted on original drsg, no active bleeding, swelling. EXTREMITIES: no cyanosis, edema SKIN: no rash; no jaundice. DECORATING CONSULTANT: awake, follows commands Assessment and Plan Plan ASSESSMENT: - PEG tube site infection. Pt had a previous PEG tube placed on 04/15/[address] Curran. PEG was accidentally dislodged on 05/31/17. Site had erythema/drainage, cx grew psae, enterococcus D. On levaquin. Site improving. Pt is eating some po, but states he can only take small amounts and wants his TF replaced. His meals are not being recorded consistently. ST following, soft diet with thin liquids/no straws/passey cheri valve on while eating. S/P EGD with peg tube placement (06/06/17)----> Esophageal varices, successful PEG tube placement. Old site seems to be improving, still scant amount yellow drainage. Levaquin. - Dysphagia/Malnutrition. S/P peg replacement (06/06/17). ST following. D/W Luggage Maker Rodney, will start Jevity 1.5 at 70cc/hr from 7pm-7am and initiate calorie count through weekend to make further recommendations as far as her nutritional needs. - Alcoholic liver disease/evidence of cirrhosis. Pt with hx of alcohol abuse. MELD 25. CT Abd/pelvis (05-08-17) --> significant fluid throughout abdomen and pelvis with what appears to be cirrhotic looking liver and splenomegaly, significant sm bowel wall thickening throughout lower abd and upper pelvis w/o evidence obstruction.He was noted to have varices on EGD, no bleeding. - Anemia. HH stable at 9.4/27.5 on 06/05. No active bleeding. - Resp. Failure/PNA. Has passey cheri valve in place. 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 thalamic CVA. S/P Neuro eval. Lactulose, Xifaxan. - Leukocytosis with UTI (S/P Tx), PNA. Sputum culture on 05/30 growing PSAE, Enterococcus faecalis. Levaquin. - CHF, Hx hypothyroidism per CCM PLAN: - Soft diet with thin liquids and no straws - Passy [place] valve in place while eating - No straws - Jevity 1.5 at 70cc from 7pm-7am - Calorie count thru weekend per care coordinator's recommendations - Cont. abx - Further dietary recommendations to be made after calorie count - GI will sign off, please reconsult as needed - Pt seen and examined by Dr. Alejandra and myself and this note is written on his behalf Maggie Mederos Jun 07, 2017 12:22
[2017-06-07] MEDS: traZODone HCL 50 MG TAB PO SCH (20:40)
[2017-06-08] VITALS (9 sets, daily range): BP systolic 97–112; BP diastolic 56–60; PULSE 72–84; RESP 16–20; TEMP 97.3–98.9; O2SAT 96–100
[2017-06-08] MEDS: MORPHINE SULFATE ORAL SOLN 10 MG/0.5 ML SYRINGE G-TUBE PRN ×4 (00:54→22:05)
[2017-06-08] MEDS: FOLIC ACID 1 MG TAB PEG SCH (07:51)
[2017-06-08] MEDS: LACTOBACILLUS ACIDOPHILUS TAB PO SCH ×3 (07:51→17:20)
[2017-06-08] MEDS: FUROSEMIDE 20 MG TAB PO SCH (07:51)
[2017-06-08] MEDS: THIAMINE HCL 100 MG TAB PO SCH (07:51)
[2017-06-08] MEDS: MUPIROCIN 2% OINT 1 APPLIC/GM SYR EACH NARE SCH ×2 (07:51→22:10)
[2017-06-08] MEDS: HEPARIN SODIUM - SQ 10,000 UNITS/ML VIAL SQ SCH ×2 (07:51→22:06)
[2017-06-08] MEDS: POTASSIUM CHLORIDE 25 MEQ EFFERVESCENT TAB NG SCH (07:52)
[2017-06-08] MEDS: LANSOPRAZOLE SOLUTAB 30 MG TAB NG SCH (07:52)
[2017-06-08] MEDS: SODIUM HYPOCHLORITE 0.125% 500 ML BTL TOPICAL SCH (07:52)
[2017-06-08] MEDS: NYSTATIN 100,000 U/GM PWD 15 GM BTL TOPICAL SCH ×2 (07:53→22:08)
[2017-06-08] MEDS: ARTIFICIAL TEARS OPTH SOLN 15 ML BTL EACH EYE SCH ×3 (07:53→17:20)
[2017-06-08] MEDS: CHLORHEXIDINE 0.12% (ORAL KIT) 15 ML CUP MT SCH ×2 (08:00→20:00)
[2017-06-08] MEDS: levETIRAcetam 1000 MG INJ 100 ML IV SCH (08:05)
--- NOTE | 2017-06-08 10:41 | HHI.PR ---
Subjective Remarks Follow-up for hyponatremia, osmotic demyelination syndrome. Patient seen and examined today. Lying in bed sleeping, awakens to voice. States pain in wound is painful. Has not slept well. PEG in place, tolerating TF at night and PO intake during the day. Denies any recent fever, chills, cough, shortness of breath abdominal pain, n/v, diarrhea or dysuria. Objective Vitals Vital Signs Date Time Temp Pulse Resp B/P Pulse Ox O2 Delivery O2 Flow Rate FiO2 06/08/17 09:00 79 06/08/17 07:48 97.6 75 20 105/59 96 06/08/17 07:19 97 Trach Collar 28 06/08/17 04:00 Trach Collar 6.00 28 06/08/17 04:00 98.0 76 20 97/57 98 06/08/17 00:00 Trach Collar 6.00 28 06/08/17 00:00 97.3 84 20 97/60 99 06/07/17 20:20 99 Trach Collar 4.00 28 06/07/17 20:00 97.5 80 20 96/59 100 06/07/17 20:00 Trach Collar 6.00 28 06/07/17 20:00 74 06/07/17 18:00 Trach Collar 6.00 06/07/17 16:00 98.0 80 20 100/58 100 06/07/17 12:00 Trach Collar 6.00 06/07/17 12:00 98.2 80 20 99/60 99 06/07/17 10:40 Aerosol Mask 28 I/O 06/07/17 06/07/17 06/07/17 06/08/17 06/08/17 06/08/17 07:00 15:00 23:00 07:00 15:00 23:00 Intake Total 0 ml 600 ml 0 ml 0 ml Output Total 375 ml 1000 ml 400 ml 350 ml Balance -375 ml -400 ml -400 ml -350 ml Intake Oral 0 ml 600 ml 0 ml 0 ml Output Urine Total 375 ml 1000 ml 400 ml 350 ml # Bowel Movements 0 0 1 Result Diagram: 06/05/17 0740 06/07/17 0851 Imaging Last Impressions Chest X-Ray 05/16/17 0000 Signed Impressions: Service Date/Time: May 12:56 - CONCLUSION: Improving lung aeration with decreasing air space disease. Persistent left basilar consolidation. Carlos Galindo MD Abdomen/Pelvis CT 05/08/17 Signed Impressions: Service Date/Time: Monday, May 08, 2017 23:10 - CONCLUSION: Significant fluid throughout the abdomen and the pelvis with what appears to be a cirrhotic appearing liver and splenomegaly. There is significant small bowel wall thickening throughout the lower abdomen and the upper pelvis without evidence of obstruction Milo Muhammad MD Abdomen X-Ray 05/08/17 Signed Impressions: Service Date/Time: Monday, May 08, 2017 15:30 - CONCLUSION: 1. There is diffuse, mild gaseous distention of the small bowel. No findings to indicate obstruction. Mihir Harry MD Liver Ultrasound 04/15/17 Signed Impressions: Service Date/Time: Saturday, April 15, 2017 09:24 - CONCLUSION: 1. Abnormal appearance of the pancreas with a nonspecific hypoechoic area involving the posterior part of the pancreas along the head and body region. Recommend CT scan of the abdomen with oral and IV contrast further evaluation. 2. Fatty infiltration throughout the liver. 3. There is thickening of the gallbladder wall at 6 mm. This is suggestive of chronic gallbladder disease. 4. Small amount of free fluid adjacent to the liver and spleen in the upper abdomen.. 5. Right-sided pleural effusion. Víctor Rosas MD Head CT 04/12/17 Signed Impressions: Service Date/Time: Wednesday, April 12, 2017 21:30 - CONCLUSION: Pontine encephalomalacia. Left mastoiditis. Casper Alva MD Head Magnetic Resonance Angiography 03/28/17 Signed Impressions: Service Date/Time: March 17:22 - CONCLUSION: Unremarkable examination. Bety Castillo MD Brain MRI 03/28/17 Signed Impressions: Service Date/Time: March 17:22 - CONCLUSION: 1. 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 Small subacute ischemic bilateral thalamic infarcts. 2. There has been no significant change when compared to the prior exam. Yinka Harman MD Lower Extremity Ultrasound 03/25/17 Signed Impressions: Service Date/Time: Saturday, March 25, 2017 22:17 - CONCLUSION: No evidence of DVT. Víctor Rosas MD CT Angiography 03/21/17 0000 Signed Impressions: Service Date/Time: March 00:33 - CONCLUSION: No evidence of pulmonary embolism is identified. Mild atelectasis left lung base. Fluid or phlegm within the trachea. Milo Muhammad MD Abdomen Ultrasound 03/20/17 0000 Signed Impressions: Service Date/Time: Monday, March 20, 2017 11:38 - CONCLUSION: 1. Hepatosplenomegaly without focal lesion. 2. Probable sludge within the lumen of the gallbladder. No intrahepatic duct. Cheo Martínez MD Shoulder X-Ray 03/02/17 1404 Signed Impressions: Service Date/Time: Thursday, March 02, 2017 15:18 - CONCLUSION: No evidence of recent bony injury. Deformity of the lateral left clavicle suggests old healed trauma. Cheo Martínez MD Maxillofacial CT 03/02/17 1342 Signed Impressions: Service Date/Time: Thursday, March 02, 2017 14:52 - CONCLUSION: Negative CT of the facial bones. Cheo Martínez MD Chest CT 03/02/17 1342 Signed Impressions: Service Date/Time: Thursday, March 02, 2017 15:04 - CONCLUSION: 1. Abnormal appearance of the lateral left clavicle suggesting a combination of acute and chronic bony injury. Fracture lucencies without bridging callus is seen the region of the coracoid process. 2. The lungs are clear. No evidence of pneumothorax. 3. Moderate size hiatus hernia. Cheo Martínez MD Cervical Spine CT 03/02/17 1342 Signed Impressions: Service Date/Time: Thursday, March 02, 2017 14:52 - CONCLUSION: Negative CT cervical spine. Cheo Martínez MD Objective Remarks GENERAL: Well-nourished, well-developed male patient lying in bed in no apparent distress. SKIN: Warm and dry. Trach site with dressing in place. No edema noted. HEENT: Normocephalic. No scleral icterus. No injection or drainage. NECK: Supple, trachea midline. No JVD. CARDIOVASCULAR: Regular rate and rhythm. No murmur appreciated. RESPIRATORY: Breath sounds equal bilaterally. Distant breath sounds noted throughout. No accessory muscle use. GASTROINTESTINAL: Abdomen soft,nondistended. PEG site, dressing in place, c/d/ i. Some tenderness to palpation to area. EXTREMITIES: No cyanosis, or edema. NEUROLOGICAL: Awake, alert, and oriented x 3 Procedures 03/02/2017 - arterial line and central line placement. 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 Sandhu is a 61 year old male with a history of alcohol abuse, severe hypernatremia who presented to the ED on 03/02/2017 due to worsening fatigue, weakness that started 13 days prior to this hospitalization. He was found to have significant delirium. He admitted to drinking alcohol as well as taking xanax as well. ED work up indicated Na 99, Bilirubin 8.9, Lactate 9.8, Ammonia 60, CK 7000, troponin 4.9, Creatinine 1.5, bicarb 13. His WBC was 12, Platelets 112, INR 1.9. Meld score 26. He was severely hydrated. Patient was started on isotonic saline in an effort to improve hypovolemia. Patients sodium corrected too rapidly. Patient was treated for distributive shock, alcohol withdrawal and electrolyte imbalances in the ICU. 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 Chronic severe hyponatremia Bilateral thalamic stroke Seizures - Continue Keppra 1000 mg every 12 hours. - Lorazepam 1 mg every 12 hours PO for seizures. Alcoholic liver disease Alcohol dependence Lower extremity thigh edema, improving - CT abdomen shows liver cirrhosis. - Continue folic acid and thiamine. - Furosemide 20 mg PO daily. - KCL eff 25 meq PO daily while on Lasix. - Monitor UO, electrolytes and intake closely while on diuretics. - PT and OT services continue, endurance is currently poor/highly limited. Acute hypoxemic and hypercapnic respiratory failure - Status post tracheostomy on 04/16/2017. Pulmonology following. - Levsin available PRN for increased tracheal secretions. - Continue Duonebs scheduled. PEG site infection - PEG site culture growing pseudomonas and Group D Enterococcus on 06/01/17. Removed and status post replacement 06/06/17. - Speech following patient, tolerating PO intake. Recommendations for mechanical soft and thin liquids. Monitor PO intake closely. Monitor for aspiration. - Levaquin (started 06/01/17 - stopped 06/08/17) for infected PEG site. Site improving. Depression Insomnia - Continue Trazodone 50 mg PO HS. Monitor for effect or over sedation. - Monitor for suicidal ideation. No suicidal ideation at this time. Upper respiratory bacterial infection, acute on chronic: Likely colonization and source of active infection. - Sputum culture growing Pseudomonas aeruginosa and Group D Enterococcus on 05/30/17. - Levaquin course completed. Urinary tract infection, resolved. - Urine culture + Klebsiella pneumoniae and Enterococcus faecalis. - DCd ceftriaxone, course completed. Prolonged immobility: Continue PT. Request stretcher chair and possibility of tolerating daily during meals. Chronic pain: Continue Roxanol 5 mg PO q4h PRN per pain scale. Continue Morphine 5 mg IV q4h PRN per pain scale. Hypokalemia, resolved: Continue kcl eff 25 meq PO daily. GI prophylaxis: Prevacid DVT Prophylaxis: Resume Heparin Full code. Discharge Planning Last CM note: 06/07/17 Carina from [facility] still evaluating pt will visit pt today at hospital. Still needs to verify benefits. Nayeli Devlin Jun 08, 2017 10:41
[2017-06-08] MEDS: LEVOFLOXACIN 500 MG PREMIX INJ 100 ML IV SCH (11:05)
[2017-06-08] MEDS: ONDANSETRON HCL 4 MG/2 ML VIAL IV PRN (12:10)
[2017-06-08] MEDS: traZODone HCL 50 MG TAB PO SCH (22:05)
[2017-06-09] VITALS (8 sets, daily range): BP systolic 104–120; BP diastolic 55–65; PULSE 64–79; RESP 16–18; TEMP 97.3–98.3; O2SAT 97–100
[2017-06-09] MEDS: MORPHINE SULFATE ORAL SOLN 10 MG/0.5 ML SYRINGE G-TUBE PRN ×3 (02:10→16:27)
[2017-06-09] MEDS: CHLORHEXIDINE 0.12% (ORAL KIT) 15 ML CUP MT SCH ×2 (08:00→20:00)
[2017-06-09] MEDS: ARTIFICIAL TEARS OPTH SOLN 15 ML BTL EACH EYE SCH ×3 (09:00→16:19)
[2017-06-09] MEDS: MUPIROCIN 2% OINT 1 APPLIC/GM SYR EACH NARE SCH ×2 (09:00→20:24)
[2017-06-09] MEDS: THIAMINE HCL 100 MG TAB PO SCH (09:18)
[2017-06-09] MEDS: HEPARIN SODIUM - SQ 10,000 UNITS/ML VIAL SQ SCH ×2 (09:18→20:26)
[2017-06-09] MEDS: FUROSEMIDE 20 MG TAB PO SCH (09:18)
[2017-06-09] MEDS: LACTOBACILLUS ACIDOPHILUS TAB PO SCH ×3 (09:18→16:27)
[2017-06-09] MEDS: LANSOPRAZOLE SOLUTAB 30 MG TAB NG SCH (09:18)
[2017-06-09] MEDS: levETIRAcetam 500 MG TAB PO SCH ×2 (09:18→20:26)
[2017-06-09] MEDS: POTASSIUM CHLORIDE 25 MEQ EFFERVESCENT TAB NG SCH (09:18)
[2017-06-09] MEDS: FOLIC ACID 1 MG TAB PEG SCH (09:18)
[2017-06-09] MEDS: NYSTATIN 100,000 U/GM PWD 15 GM BTL TOPICAL SCH ×2 (09:25→20:25)
[2017-06-09] MEDS: SODIUM HYPOCHLORITE 0.125% 500 ML BTL TOPICAL SCH (09:25)
--- NOTE | 2017-06-09 11:17 | HHI.PR ---
Subjective Remarks Follow-up for hyponatremia, osmotic demyelination syndrome. Patient seen and examined. Lying in bed comfortably, states pain is more well controlled. PEG in place, cleaned, dressing dry and intact. Tolerating TF at night. eating PO during day, tolerating well denies any nausea or vomiting. PMV in place, tolerating well. Afebrile. VSS. Objective Vitals Vital Signs Date Time Temp Pulse Resp B/P Pulse Ox O2 Delivery O2 Flow Rate FiO2 06/09/17 09:51 5.00 28 06/09/17 09:51 97 Trach Collar 5.00 28 06/09/17 08:00 98.3 75 18 104/60 98 06/09/17 04:00 97.5 64 16 110/59 98 06/09/17 03:10 16 06/09/17 00:00 97.3 72 16 106/55 98 06/08/17 20:14 97 Trach Collar 5.00 28 06/08/17 20:00 72 06/08/17 20:00 97.8 77 16 112/60 99 06/08/17 20:00 Trach Collar 6.00 28 06/08/17 16:00 98.4 75 18 109/56 99 06/08/17 12:00 Trach Collar 6.00 28 06/08/17 12:00 98.9 83 18 103/56 100 I/O 06/08/17 06/08/17 06/08/17 06/09/17 06/09/17 06/09/17 07:00 15:00 23:00 07:00 15:00 23:00 Intake Total 0 ml 480 ml 700 ml Output Total 350 ml 550 ml 350 ml 600 ml Balance -350 ml -70 ml -350 ml 100 ml Intake Oral 0 ml 480 ml 0 ml Tube Feeding 700 ml Output Urine Total 350 ml 550 ml 350 ml 600 ml # Bowel Movements 1 0 0 1 Result Diagram: 06/05/17 0740 06/07/17 0851 Imaging Last Impressions Chest X-Ray 05/16/17 0000 Signed Impressions: Service Date/Time: May 12:56 - CONCLUSION: Improving lung aeration with decreasing air space disease. Persistent left basilar consolidation. Carlos Galindo MD Abdomen/Pelvis CT 05/08/17 0000 Signed Impressions: Service Date/Time: Monday, May 08, 2017 23:10 - CONCLUSION: Significant fluid throughout the abdomen and the pelvis with what appears to be a cirrhotic appearing liver and splenomegaly. There is significant small bowel wall thickening throughout the lower abdomen and the upper pelvis without evidence of obstruction Milo Muhammad MD Abdomen X-Ray 05/08/17 0000 Signed Impressions: Service Date/Time: Monday, May 08, 2017 15:30 - CONCLUSION: 1. There is diffuse, mild gaseous distention of the small bowel. No findings to indicate obstruction. Mihir Harry MD Liver Ultrasound 04/15/17 0000 Signed Impressions: Service Date/Time: Saturday, April 15, 2017 09:24 - CONCLUSION: 1. Abnormal appearance of the pancreas with a nonspecific hypoechoic area involving the posterior part of the pancreas along the head and body region. Recommend CT scan of the abdomen with oral and IV contrast further evaluation. 2. Fatty infiltration throughout the liver. 3. There is thickening of the gallbladder wall at 6 mm. This is suggestive of chronic gallbladder disease. 4. Small amount of free fluid adjacent to the liver and spleen in the upper abdomen.. 5. Right-sided pleural effusion. Víctor Rosas MD Head CT 04/12/17 0000 Signed Impressions: Service Date/Time: Wednesday, April 12, 2017 21:30 - CONCLUSION: Pontine encephalomalacia. Left mastoiditis. Casper Alva MD Head Magnetic Resonance Angiography 03/28/17 0000 Signed Impressions: Service Date/Time: March 17:22 - CONCLUSION: Unremarkable examination. Bety Castillo MD Brain MRI 03/28/17 0000 Signed Impressions: Service Date/Time: March 17:22 - CONCLUSION: 1. 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 Small subacute ischemic bilateral thalamic infarcts. 2. There has been no significant change when compared to the prior exam. Yinka Harman MD Lower Extremity Ultrasound 03/25/17 0000 Signed Impressions: Service Date/Time: Saturday, March 25, 2017 22:17 - CONCLUSION: No evidence of DVT. Víctor Rosas MD CT Angiography 03/21/17 0000 Signed Impressions: Service Date/Time: March 00:33 - CONCLUSION: No evidence of pulmonary embolism is identified. Mild atelectasis left lung base. Fluid or phlegm within the trachea. Milo Muhammad MD Abdomen Ultrasound 03/20/17 0000 Signed Impressions: Service Date/Time: Monday, March 20, 2017 11:38 - CONCLUSION: 1. Hepatosplenomegaly without focal lesion. 2. Probable sludge within the lumen of the gallbladder. No intrahepatic duct. Cheo Martínez MD Shoulder X-Ray 03/02/17 1404 Signed Impressions: Service Date/Time: Thursday, March 02, 2017 15:18 - CONCLUSION: No evidence of recent bony injury. Deformity of the lateral left clavicle suggests old healed trauma. Cheo Martínez MD Maxillofacial CT 03/02/17 1342 Signed Impressions: Service Date/Time: Thursday, March 02, 2017 14:52 - CONCLUSION: Negative CT of the facial bones. Cheo Martínez MD Chest CT 03/02/17 1342 Signed Impressions: Service Date/Time: Thursday, March 02, 2017 15:04 - CONCLUSION: 1. Abnormal appearance of the lateral left clavicle suggesting a combination of acute and chronic bony injury. Fracture lucencies without bridging callus is seen the region of the coracoid process. 2. The lungs are clear. No evidence of pneumothorax. 3. Moderate size hiatus hernia. Cheo Martínez MD Cervical Spine CT 03/02/17 1342 Signed Impressions: Service Date/Time: Thursday, March 02, 2017 14:52 - CONCLUSION: Negative CT cervical spine. Cheo Martínez MD Objective Remarks GENERAL: Well-nourished, well-developed male patient lying in bed in no apparent distress. SKIN: Warm and dry. Trach site with dressing in place. No edema noted. HEENT: Normocephalic. No scleral icterus. No injection or drainage. NECK: Supple, trachea midline. No JVD. CARDIOVASCULAR: Regular rate and rhythm. No murmur appreciated. RESPIRATORY: Breath sounds equal bilaterally. Distant breath sounds noted throughout. No accessory muscle use. GASTROINTESTINAL: Abdomen soft,nondistended. PEG site, dressing in place, c/d/ i. Some tenderness to palpation to area. EXTREMITIES: No cyanosis, or edema. NEUROLOGICAL: Awake, alert, and oriented x 3 Procedures 03/02/2017 - arterial line and central line placement. 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 Sandhu is a 61 year old male with a history of alcohol abuse, severe hypernatremia who presented to the ED on 03/02/2017 due to worsening fatigue, weakness that started 13 days prior to this hospitalization. He was found to have significant delirium. He admitted to drinking alcohol as well as taking xanax as well. ED work up indicated Na 99, Bilirubin 8.9, Lactate 9.8, Ammonia 60, CK 7000, troponin 4.9, Creatinine 1.5, bicarb 13. His WBC was 12, Platelets 112, INR 1.9. Meld score 26. He was severely hydrated. Patient was started on isotonic saline in an effort to improve hypovolemia. Patients sodium corrected too rapidly. Patient was treated for distributive shock, alcohol withdrawal and electrolyte imbalances in the ICU. 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 Chronic severe hyponatremia Bilateral thalamic stroke Seizures - Continue Keppra 1000 mg PO every 12 hours. - Lorazepam 1 mg every 12 hours PO for seizures. Alcoholic liver disease Alcohol dependence Lower extremity thigh edema, improving - CT abdomen shows liver cirrhosis. - Continue folic acid and thiamine. - Furosemide 20 mg PO daily. - KCL eff 25 meq PO daily while on Lasix. - Monitor UO, electrolytes and intake closely while on diuretics. - PT and OT services continue, endurance is currently poor/highly limited. Acute hypoxemic and hypercapnic respiratory failure - Status post tracheostomy on 04/16/2017. Pulmonology following. - Levsin available PRN for increased tracheal secretions. - Continue Duonebs scheduled. PEG site infection - PEG site culture growing pseudomonas and Group D Enterococcus on 06/01/17. Removed and status post replacement 06/06/17. - Speech following patient, tolerating PO intake. Recommendations for mechanical soft and thin liquids. Monitor PO intake closely. Monitor for aspiration. - Levaquin (started 06/01/17 - stopped 06/08/17) for infected PEG site. Site improving. Depression Insomnia - Continue Trazodone 50 mg PO HS. Monitor for effect or over sedation. - Monitor for suicidal ideation. No suicidal ideation at this time. Upper respiratory bacterial infection, acute on chronic: Likely colonization and source of active infection. - Sputum culture growing Pseudomonas aeruginosa and Group D Enterococcus on 05/30/17. - Levaquin course completed. Urinary tract infection, resolved. - Urine culture + Klebsiella pneumoniae and Enterococcus faecalis. - DCd ceftriaxone, course completed. Prolonged immobility: Continue PT. Request stretcher chair and possibility of tolerating daily during meals. Chronic pain: Continue Roxanol 5 mg PO q4h PRN per pain scale. Continue Morphine 5 mg IV q4h PRN per pain scale. Hypokalemia, resolved: Continue kcl eff 25 meq PO daily. GI prophylaxis: Prevacid DVT Prophylaxis: Resume Heparin Full code. Discharge Planning Last CM note: 06/07/17 Carina from [facility] still evaluating pt will visit pt today at hospital. Still needs to verify benefits. Nayeli Devlin Jun 09, 2017 11:17
[2017-06-09] MEDS: MORPHINE SULFATE 8 MG/ML INJ IV PUSH PRN (20:26)
[2017-06-09] MEDS: traZODone HCL 50 MG TAB PO SCH (20:26)
[2017-06-10] VITALS (8 sets, daily range): BP systolic 90–112; BP diastolic 53–62; PULSE 69–80; RESP 16–20; TEMP 97.4–98; O2SAT 92–99
[2017-06-10] MEDS: LACTOBACILLUS ACIDOPHILUS TAB PO SCH ×3 (09:55→16:52)
[2017-06-10] MEDS: FOLIC ACID 1 MG TAB PEG SCH (09:55)
[2017-06-10] MEDS: POTASSIUM CHLORIDE 25 MEQ EFFERVESCENT TAB NG SCH (09:55)
[2017-06-10] MEDS: LANSOPRAZOLE SOLUTAB 30 MG TAB NG SCH (09:55)
[2017-06-10] MEDS: FUROSEMIDE 20 MG TAB PO SCH (09:55)
[2017-06-10] MEDS: levETIRAcetam 500 MG TAB PO SCH ×2 (09:55→21:53)
[2017-06-10] MEDS: THIAMINE HCL 100 MG TAB PO SCH (09:55)
[2017-06-10] MEDS: CHLORHEXIDINE 0.12% (ORAL KIT) 15 ML CUP MT SCH ×2 (09:56→21:56)
[2017-06-10] MEDS: MUPIROCIN 2% OINT 1 APPLIC/GM SYR EACH NARE SCH ×2 (09:56→21:55)
[2017-06-10] MEDS: SODIUM HYPOCHLORITE 0.125% 500 ML BTL TOPICAL SCH (09:56)
[2017-06-10] MEDS: HEPARIN SODIUM - SQ 10,000 UNITS/ML VIAL SQ SCH ×2 (09:56→21:53)
[2017-06-10] MEDS: ARTIFICIAL TEARS OPTH SOLN 15 ML BTL EACH EYE SCH ×3 (09:56→16:52)
[2017-06-10] MEDS: NYSTATIN 100,000 U/GM PWD 15 GM BTL TOPICAL SCH ×2 (09:57→21:55)
--- NOTE | 2017-06-10 12:18 | HHI.PR ---
Subjective Remarks Follow-up for hyponatremia, osmotic demyelination syndrome. Patient seen and examined. Lying in bed. Noted pain to back and abdomen "where they did the surgery." Pain was said to be controlled. PEG in place. Receiving tube feeds at night and "doing ok with them". Pt stated he is eating "pretty good during the day" during without difficulty or complication. Pt endorsed insomnia and reportedly asked for an increase in his trazodone from "25 mg at bedtime to 50 mg". Pt denied fever, cough, shortness of breath,nausea or vomiting. He noted having "phlegm from my pneumonia" as being an ongoing issue. PMV in place. Afebrile. VSS. Per RN (Dulce), no new issues/concerns developed over night or since start of shift. Objective Vitals Vital Signs Date Time Temp Pulse Resp B/P Pulse Ox O2 Delivery O2 Flow Rate FiO2 06/10/17 11:11 69 06/10/17 10:19 T-Piece 6.00 28 06/10/17 08:15 92 Trach Collar 6.00 28 06/10/17 08:15 Aerosol Mask 6.00 28 06/10/17 08:07 97.9 77 16 102/62 98 06/10/17 05:34 97.4 80 20 91/53 97 06/10/17 04:00 Trach Collar 6.00 06/10/17 00:56 97.6 78 20 90/62 98 06/10/17 00:00 Trach Collar 6.00 28 06/09/17 21:04 97.4 77 18 120/65 100 06/09/17 20:00 Trach Collar 6.00 06/09/17 20:00 79 06/09/17 12:42 100 Trach Collar 5.00 06/09/17 12:41 67 I/O 06/09/17 06/09/17 06/09/17 06/10/17 06/10/17 06/10/17 07:00 15:00 23:00 07:00 15:00 23:00 Intake Total 700 ml 720 ml 120 ml 658 ml Output Total 600 ml 1400 ml 400 ml Balance 100 ml -680 ml 120 ml 258 ml Intake Oral 0 ml 720 ml Tube Feeding 700 ml 120 ml 598 ml Tube Irrigant 60 ml Output Urine Total 600 ml 1400 ml 400 ml # Bowel Movements 1 0 Result Diagram: 06/07/17 0851 Imaging Last Impressions Chest X-Ray 05/16/17 0000 Signed Impressions: Service Date/Time: May 12:56 - CONCLUSION: Improving lung aeration with decreasing air space disease. Persistent left basilar consolidation. Carlos Galindo MD Abdomen/Pelvis CT 05/08/17 0000 Signed Impressions: Service Date/Time: Monday, May 08, 2017 23:10 - CONCLUSION: Significant fluid throughout the abdomen and the pelvis with what appears to be a cirrhotic appearing liver and splenomegaly. There is significant small bowel wall thickening throughout the lower abdomen and the upper pelvis without evidence of obstruction Milo Muhammad MD Abdomen X-Ray 05/08/17 0000 Signed Impressions: Service Date/Time: Monday, May 08, 2017 15:30 - CONCLUSION: 1. There is diffuse, mild gaseous distention of the small bowel. No findings to indicate obstruction. Mihir Harry MD Liver Ultrasound 04/15/17 0000 Signed Impressions: Service Date/Time: Saturday, April 15, 2017 09:24 - CONCLUSION: 1. Abnormal appearance of the pancreas with a nonspecific hypoechoic area involving the posterior part of the pancreas along the head and body region. Recommend CT scan of the abdomen with oral and IV contrast further evaluation. 2. Fatty infiltration throughout the liver. 3. There is thickening of the gallbladder wall at 6 mm. This is suggestive of chronic gallbladder disease. 4. Small amount of free fluid adjacent to the liver and spleen in the upper abdomen.. 5. Right-sided pleural effusion. Víctor Rosas MD Head CT 04/12/17 0000 Signed Impressions: Service Date/Time: Wednesday, April 12, 2017 21:30 - CONCLUSION: Pontine encephalomalacia. Left mastoiditis. Casper Alva MD Head Magnetic Resonance Angiography 03/28/17 0000 Signed Impressions: Service Date/Time: March 17:22 - CONCLUSION: Unremarkable examination. Bety Castillo MD Brain MRI 03/28/17 0000 Signed Impressions: Service Date/Time: March 17:22 - CONCLUSION: 1. 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 Small subacute ischemic bilateral thalamic infarcts. 2. There has been no significant change when compared to the prior exam. Yinka Harman MD Lower Extremity Ultrasound 03/25/17 0000 Signed Impressions: Service Date/Time: Saturday, March 25, 2017 22:17 - CONCLUSION: No evidence of DVT. Víctor Rosas MD CT Angiography 03/21/17 0000 Signed Impressions: Service Date/Time: March 00:33 - CONCLUSION: No evidence of pulmonary embolism is identified. Mild atelectasis left lung base. Fluid or phlegm within the trachea. Milo Muhammad MD Abdomen Ultrasound 03/20/17 0000 Signed Impressions: Service Date/Time: Monday, March 20, 2017 11:38 - CONCLUSION: 1. Hepatosplenomegaly without focal lesion. 2. Probable sludge within the lumen of the gallbladder. No intrahepatic duct. Cheo Martínez MD Shoulder X-Ray 03/02/17 1404 Signed Impressions: Service Date/Time: Thursday, March 02, 2017 15:18 - CONCLUSION: No evidence of recent bony injury. Deformity of the lateral left clavicle suggests old healed trauma. Cheo Martínez MD Maxillofacial CT 03/02/17 1342 Signed Impressions: Service Date/Time: Thursday, March 02, 2017 14:52 - CONCLUSION: Negative CT of the facial bones. Cheo Martínez MD Chest CT 03/02/17 1342 Signed Impressions: Service Date/Time: Thursday, March 02, 2017 15:04 - CONCLUSION: 1. Abnormal appearance of the lateral left clavicle suggesting a combination of acute and chronic bony injury. Fracture lucencies without bridging callus is seen the region of the coracoid process. 2. The lungs are clear. No evidence of pneumothorax. 3. Moderate size hiatus hernia. Cheo Martínez MD Cervical Spine CT 03/02/17 1342 Signed Impressions: Service Date/Time: Thursday, March 02, 2017 14:52 - CONCLUSION: Negative CT cervical spine. Cheo Martínez MD Objective Remarks GENERAL: Laying abed, in NAD. Pt speaking as t-tube is capped. SKIN: Warm and dry. Scabs noted on left side of head, improved. HEAD: Normocephalic. EYES: No scleral icterus. No injection or drainage. NECK: Supple, trachea midline. No lymphadenopathy noted. CARDIOVASCULAR: Regular rate and rhythm without murmurs, gallops, or rubs. RESPIRATORY: Breath sounds equal bilaterally.No rhonchi or wheezes noted. No accessory muscle use. GASTROINTESTINAL: Abdomen soft, nondistended. Pt reported pain/discomfort at site of former PEG tube. No pain at site of recently inserted PEG. MUSCULOSKELETAL: No cyanosis, or edema. PSYCHOLOGICAL: A&O x3, no overt signs/symptoms of depression and/or anxiety.Speech clear and fluent. Procedures 03/02/2017 - arterial line and central line placement. 03/25/2017 - central line placement and intubation 06/06/17 -PEG tube replaced (Dr. Estevez). Medications and IVs Current Medications Medications (Trade) Dose Ordered Sig/Mae Route Start Time Stop Time Status Last Admin (Tears Naturale Opth Soln) 1 drop TID EACH EYE 03/20/17 09:00 06/10/17 09:56 (Zofran Inj) 4 mg Q6H PRN IV 03/20/17 07:30 06/08/17 12:10 (Senokot) 17.2 mg Q12H PRN PO 03/20/17 07:30 (Bactroban Nasal 2% Oint) Taper BID EACH NARE 03/20/17 09:00 03/16/18 08:59 06/10/17 09:56 (Lactinex) 1 tab TID PO 03/24/17 18:00 06/10/17 09:55 (NS Flush) UNSCH PRN IVF 03/25/17 10:15 06/07/17 08:36 (Peridex 0.12% Liq) 15 ml BID@08,20 MT 03/25/17 20:00 06/09/17 20:00 (Tylenol) 500 mg Q6H PRN PO 04/01/17 23:15 05/12/17 09:54 (Colace Liq) 100 mg Q12HR PO 04/03/17 21:00 Hold 04/13/17 11:42 (Mycostatin Powder) 1 applic Q12HR TOPICAL 04/03/17 21:00 06/10/17 09:57 (Vitamin B1) 100 mg DAILY PO 04/05/17 09:00 06/10/17 09:55 (Ativan Inj) 1 mg Q2H PRN IV PUSH 04/13/17 11:00 04/19/17 17:41 (Mag-Ox) 800 mg UNSCH PRN PO 04/14/17 18:00 (Prevacid Odt) 30 mg DAILY NG 04/27/17 09:00 06/10/17 09:55 (Keppra Liq) 1,000 mg Q12HR NG 04/27/17 21:00 Hold 05/31/17 08:59 (Heparin Inj) 5,000 units Q12HR SQ 04/27/17 21:00 06/10/17 09:56 (Dakin'S 0.125% Soln) 100 ml DAILY TOPICAL 05/02/17 12:00 06/10/17 09:56 (Lactulose Liq) 30 ml Q12H PRN PO 05/10/17 17:00 (Roxanol Liq) 5 mg Q4H PRN G-TUBE 05/12/17 14:45 06/09/17 16:27 (Folate) 1 mg DAILY PEG 05/21/17 09:00 06/10/17 09:55 (Benadryl Liq) 12.5 mg Q4H PRN PO 05/27/17 19:15 05/31/17 18:43 (Morphine Inj) 5 mg Q4H PRN IV PUSH 06/01/17 07:45 06/09/17 20:26 (Benadryl Inj) 12.5 mg Q4H PRN IV 06/01/17 09:15 06/02/17 22:49 (Chloraseptic [place]) 2 spray Q2H PRN OROPHARYNG 06/02/17 10:45 (Desyrel) 50 mg HS PO 06/05/17 21:00 06/09/17 20:26 (K-Lyte Cl Eff) 25 meq DAILY NG 06/06/17 12:45 06/10/17 09:55 (Lasix) 20 mg DAILY PO 06/07/17 09:00 06/10/17 09:55 (Keppra) 1,000 mg Q12HR PO 06/09/17 09:00 06/10/17 09:55 Urinary Catheter: Yes Assessment to: Continue Johns insert reason: Prolonged Immobilization Date of Insertion: May 14, 2017 A/P Problem List: (1) Chronic hyponatremia ICD Code: E87.1 Status: Acute (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 Sandhu is a 61 year old male with a history of alcohol abuse, severe hypernatremia who presented to the ED on 03/02/2017 due to worsening fatigue, weakness that started 13 days prior to this hospitalization. He was found to have significant delirium. He admitted to drinking alcohol as well as taking xanax as well. ED work up indicated Na 99, Bilirubin 8.9, Lactate 9.8, Ammonia 60, CK 7000, troponin 4.9, Creatinine 1.5, bicarb 13. His WBC was 12, Platelets 112, INR 1.9. Meld score 26. He was severely hydrated. Patient was started on isotonic saline in an effort to improve hypovolemia. Patients sodium corrected too rapidly. Patient was treated for distributive shock, alcohol withdrawal and electrolyte imbalances in the ICU. 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 Chronic severe hyponatremia Bilateral thalamic stroke Seizures - Continue Keppra 1000 mg PO every 12 hours. - Lorazepam 1 mg every 2 hours PO for seizures. Alcoholic liver disease Alcohol dependence Lower extremity thigh edema, improving - CT abdomen shows liver cirrhosis. - Continue folic acid and thiamine. - Furosemide 20 mg PO daily. - KCL eff 25 meq PO daily while on Lasix. - Monitor UO, electrolytes and intake closely while on diuretics. - PT and OT services continue, endurance is currently poor/highly limited. Acute hypoxemic and hypercapnic respiratory failure - Status post tracheostomy on 04/16/2017. Pulmonology following. - Levsin available PRN for increased tracheal secretions. - Continue Duonebs scheduled. PEG site infection - PEG site culture growing pseudomonas and Group D Enterococcus on 06/01/17. Removed and status post replacement 06/06/17. - Speech following patient, tolerating PO intake. Recommendations for mechanical soft and thin liquids. Monitor PO intake closely. Monitor for aspiration. - Levaquin (started 06/01/17 - stopped 06/08/17) for infected PEG site. Pain at former PEG site is reported. Depression Insomnia - Continue Trazodone 50 mg PO HS. Monitor for effect or over sedation. - Monitor for suicidal ideation. No suicidal ideation at this time. Upper respiratory bacterial infection, acute on chronic: Likely colonization and source of active infection. - Sputum culture growing Pseudomonas aeruginosa and Group D Enterococcus on 05/30/17. - Levaquin course completed. Urinary tract infection, resolved. - Urine culture + Klebsiella pneumoniae and Enterococcus faecalis. - DCd ceftriaxone, course completed. Prolonged immobility: Continue PT. Request stretcher chair and possibility of tolerating daily during meals. -Pt to do exercises while in bed, 3-5 times/day per Physical Therapy Chronic pain: Continue Roxanol 5 mg PO q4h PRN per pain scale. Continue Morphine 5 mg IV q4h PRN per pain scale. Hypokalemia, resolved: Continue kcl eff 25 meq PO daily. GI prophylaxis: Prevacid DVT Prophylaxis: Heparin Case discussed with pt, RN (Dulce) and Dr. Nichols. Discharge Planning continues to work on placement. Pt under consideration by a facility. Kevyn Milan Jr. Jun 10, 2017 12:18
[2017-06-10] MEDS: MORPHINE SULFATE 8 MG/ML INJ IV PUSH PRN ×2 (12:32→16:54)
[2017-06-10] MEDS: traZODone HCL 50 MG TAB PO SCH (21:53)
[2017-06-10] MEDS: MORPHINE SULFATE ORAL SOLN 10 MG/0.5 ML SYRINGE G-TUBE PRN (21:54)
[2017-06-11] VITALS (10 sets, daily range): BP systolic 86–108; BP diastolic 52–68; PULSE 73–85; RESP 19–20; TEMP 97.3–98.1; O2SAT 94–98
[2017-06-11] MEDS: levETIRAcetam 500 MG TAB PO SCH ×2 (09:39→21:27)
[2017-06-11] MEDS: HEPARIN SODIUM - SQ 10,000 UNITS/ML VIAL SQ SCH ×2 (09:39→21:27)
[2017-06-11] MEDS: LACTOBACILLUS ACIDOPHILUS TAB PO SCH ×3 (09:39→16:24)
[2017-06-11] MEDS: POTASSIUM CHLORIDE 25 MEQ EFFERVESCENT TAB NG SCH (09:39)
[2017-06-11] MEDS: FUROSEMIDE 20 MG TAB PO SCH (09:39)
[2017-06-11] MEDS: LANSOPRAZOLE SOLUTAB 30 MG TAB NG SCH (09:39)
[2017-06-11] MEDS: FOLIC ACID 1 MG TAB PEG SCH (09:39)
[2017-06-11] MEDS: THIAMINE HCL 100 MG TAB PO SCH (09:39)
[2017-06-11] MEDS: ARTIFICIAL TEARS OPTH SOLN 15 ML BTL EACH EYE SCH ×3 (09:40→16:23)
[2017-06-11] MEDS: MUPIROCIN 2% OINT 1 APPLIC/GM SYR EACH NARE SCH ×2 (09:40→21:26)
[2017-06-11] MEDS: CHLORHEXIDINE 0.12% (ORAL KIT) 15 ML CUP MT SCH ×2 (09:40→20:00)
[2017-06-11] MEDS: SODIUM HYPOCHLORITE 0.125% 500 ML BTL TOPICAL SCH (09:40)
[2017-06-11] MEDS: NYSTATIN 100,000 U/GM PWD 15 GM BTL TOPICAL SCH ×2 (09:40→21:26)
[2017-06-11] MEDS: PHENOL 1.4% SOLN 180 ML BTL OROPHARYNG PRN (12:23)
[2017-06-11] MEDS: MORPHINE SULFATE 8 MG/ML INJ IV PUSH PRN ×3 (12:24→21:30)
[2017-06-11] MEDS ORDERED: SODIUM CHLORID 0.9% 500 ML INJ 500 ML IV SCH (13:45)
--- NOTE | 2017-06-11 13:47 | HHI.PR ---
Subjective Remarks Follow-up for hyponatremia, osmotic demyelination syndrome. Patient seen and examined. Lying in bed. Pt reported a slight "sore throat this morning." PEG in place. Pt reported some mild discomfort this morning associated with the PEG site. Pt endorsed insomnia, requested increase in medication. Pt denied fever, cough, shortness of breath,nausea or vomiting. Phlegm reported yesterday is "better this morning." PMV in place. Afebrile.Blood pressure evidenced trend downward over the course of the evening , most notably while pt was sleeping. Per RN (Dulce), no new issues/concerns developed over night or since start of shift. Objective Vitals Vital Signs Date Time Temp Pulse Resp B/P Pulse Ox O2 Delivery O2 Flow Rate FiO2 06/11/17 12:00 97.3 85 20 103/68 96 06/11/17 10:29 94 Trach Collar 28 06/11/17 09:41 T-Piece 6.00 28 06/11/17 08:00 98.1 73 20 92/52 98 06/11/17 04:00 97.8 80 20 86/55 97 06/11/17 00:00 97.7 76 19 98/60 96 06/10/17 20:00 98.0 73 20 99/58 98 06/10/17 16:07 97.9 78 16 112/60 99 I/O 06/10/17 06/10/17 06/10/17 06/11/17 06/11/17 06/11/17 07:00 15:00 23:00 07:00 15:00 23:00 Intake Total 658 ml 260 ml Output Total 400 ml 1300 ml 50 ml 400 ml Balance 258 ml -1040 ml -50 ml -400 ml Intake Oral 260 ml Tube Feeding 598 ml Tube Irrigant 60 ml Output Urine Total 400 ml 1300 ml 50 ml 400 ml # Bowel Movements 0 0 Result Diagram: 06/07/17 0851 Objective Remarks GENERAL: Laying abed, in NAD. Pt speaking as t-tube is capped. SKIN: Warm and dry. Scabs noted on left side of head, improved. HEAD: Normocephalic. EYES: No scleral icterus. No injection or drainage. NECK: Supple, trachea midline. Lymphadenopathy of right superior cervical chain noted. Throat without erythema/injection. CARDIOVASCULAR: Regular rate and rhythm without murmurs, gallops, or rubs. RESPIRATORY: Breath sounds equal bilaterally.No rhonchi or wheezes noted. No accessory muscle use. GASTROINTESTINAL: Abdomen soft, nondistended. Pt reported pain/discomfort at site of former PEG tube. No pain at site of recently inserted PEG. MUSCULOSKELETAL: No cyanosis, or edema. PSYCHOLOGICAL: A&O x3, no overt signs/symptoms of depression and/or anxiety.Speech clear and fluent. Procedures 03/02/2017 - arterial line and central line placement. 03/25/2017 - central line placement and intubation 06/06/17 -PEG tube replaced (Dr. Estevez). Medications and IVs Current Medications Medications (Trade) Dose Ordered Sig/Mae Route Start Time Stop Time Status Last Admin (Tears Naturale Opth Soln) 1 drop TID EACH EYE 03/20/17 09:00 06/10/17 12:31 (Zofran Inj) 4 mg Q6H PRN IV 03/20/17 07:30 06/08/17 12:10 (Senokot) 17.2 mg Q12H PRN PO 03/20/17 07:30 (Bactroban Nasal 2% Oint) Taper BID EACH NARE 03/20/17 09:00 03/16/18 08:59 06/11/17 09:40 (Lactinex) 1 tab TID PO 03/24/17 18:00 06/11/17 09:39 (NS Flush) UNSCH PRN IVF 03/25/17 10:15 06/07/17 08:36 (Peridex 0.12% Liq) 15 ml BID@08,20 MT 03/25/17 20:00 06/10/17 21:56 (Tylenol) 500 mg Q6H PRN PO 04/01/17 23:15 05/12/17 09:54 (Colace Liq) 100 mg Q12HR PO 04/03/17 21:00 Hold 04/13/17 11:42 (Mycostatin Powder) 1 applic Q12HR TOPICAL 04/03/17 21:00 06/11/17 09:40 (Vitamin B1) 100 mg DAILY PO 04/05/17 09:00 06/11/17 09:39 (Ativan Inj) 1 mg Q2H PRN IV PUSH 04/13/17 11:00 04/19/17 17:41 (Mag-Ox) 800 mg UNSCH PRN PO 04/14/17 18:00 (Prevacid Odt) 30 mg DAILY NG 04/27/17 09:00 06/11/17 09:39 (Keppra Liq) 1,000 mg Q12HR NG 04/27/17 21:00 Hold 05/31/17 08:59 (Heparin Inj) 5,000 units Q12HR SQ 04/27/17 21:00 06/11/17 09:39 (Dakin'S 0.125% Soln) 100 ml DAILY TOPICAL 05/02/17 12:00 06/11/17 09:40 (Lactulose Liq) 30 ml Q12H PRN PO 05/10/17 17:00 (Roxanol Liq) 5 mg Q4H PRN G-TUBE 05/12/17 14:45 06/10/17 21:54 (Folate) 1 mg DAILY PEG 05/21/17 09:00 06/11/17 09:39 (Benadryl Liq) 12.5 mg Q4H PRN PO 05/27/17 19:15 05/31/17 18:43 (Morphine Inj) 5 mg Q4H PRN IV PUSH 06/01/17 07:45 06/11/17 12:24 (Benadryl Inj) 12.5 mg Q4H PRN IV 06/01/17 09:15 06/02/17 22:49 (Chloraseptic [place]) 2 spray Q2H PRN OROPHARYNG 06/02/17 10:45 06/11/17 12:23 (K-Lyte Cl Eff) 25 meq DAILY NG 06/06/17 12:45 06/11/17 09:39 (Lasix) 20 mg DAILY PO 06/07/17 09:00 06/11/17 09:39 (Keppra) 1,000 mg Q12HR PO 06/09/17 09:00 06/11/17 09:39 (Desyrel) 75 mg HS PO 06/11/17 21:00 Urinary Catheter: Yes Assessment to: Continue Johns insert reason: Prolonged Immobilization Date of Insertion: May 14, 2017 A/P Problem List: (1) Chronic hyponatremia ICD Code: E87.1 Status: Acute (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 Sandhu is a 61 year old male with a history of alcohol abuse, severe hypernatremia who presented to the ED on 03/02/2017 due to worsening fatigue, weakness that started 13 days prior to this hospitalization. He was found to have significant delirium. He admitted to drinking alcohol as well as taking xanax as well. ED work up indicated Na 99, Bilirubin 8.9, Lactate 9.8, Ammonia 60, CK 7000, troponin 4.9, Creatinine 1.5, bicarb 13. His WBC was 12, Platelets 112, INR 1.9. Meld score 26. He was severely hydrated. Patient was started on isotonic saline in an effort to improve hypovolemia. Patients sodium corrected too rapidly. Patient was treated for distributive shock, alcohol withdrawal and electrolyte imbalances in the ICU. 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 Chronic severe hyponatremia Bilateral thalamic stroke Seizures - Continue Keppra 1000 mg PO every 12 hours. - Lorazepam 1 mg every 2 hours PO for seizures. Alcoholic liver disease Alcohol dependence Lower extremity thigh edema, improving - CT abdomen shows liver cirrhosis. - Continue folic acid and thiamine. - Furosemide 20 mg PO daily. - KCL eff 25 meq PO daily while on Lasix. - Monitor UO, electrolytes and intake closely while on diuretics. - PT and OT services continue, endurance is currently poor/highly limited. Acute hypoxemic and hypercapnic respiratory failure - Status post tracheostomy on 04/16/2017. Pulmonology following. - Levsin available PRN for increased tracheal secretions. - Continue Duonebs scheduled. PEG site infection - PEG site culture growing pseudomonas and Group D Enterococcus on 06/01/17. Removed and status post replacement 06/06/17. - Speech following patient, tolerating PO intake. Recommendations for mechanical soft and thin liquids. Monitor PO intake closely. Monitor for aspiration. - Levaquin (started 06/01/17 - stopped 06/08/17) for infected PEG site. Pain at former PEG site is reported. -Peg site discomfort, Tylenol. Sore throat -Chloraseptic spray Depression Insomnia - Continue Trazodone 50 mg PO HS. Monitor for effect or over sedation. - Monitor for suicidal ideation. No suicidal ideation at this time. Upper respiratory bacterial infection, acute on chronic: Likely colonization and source of active infection. - Sputum culture growing Pseudomonas aeruginosa and Group D Enterococcus on 05/30/17. - Levaquin course completed. Urinary tract infection, resolved. - Urine culture + Klebsiella pneumoniae and Enterococcus faecalis. - DCd ceftriaxone, course completed. Prolonged immobility: Continue PT. Request stretcher chair and possibility of tolerating daily during meals. -Pt to do exercises while in bed, 3-5 times/day per Physical Therapy Chronic pain: Continue Roxanol 5 mg PO q4h PRN per pain scale. Continue Morphine 5 mg IV q4h PRN per pain scale. Hypokalemia, resolved: Continue kcl eff 25 meq PO daily. GI prophylaxis: Prevacid DVT Prophylaxis: Heparin Case discussed with pt, RN (Dulce) and Dr. Nichols. Discharge Planning continues to work on placement. Pt under consideration by a facility. Kevyn Milan Jr. Jun 11, 2017 13:47
[2017-06-11] MEDS: traZODone HCL 50 MG TAB PO SCH (21:27)
[2017-06-11] MEDS: SODIUM CHLORIDE 0.9% FLUSH 10 ML FLUSH IVF PRN (21:30)
[2017-06-12] VITALS (10 sets, daily range): BP systolic 97–114; BP diastolic 57–68; PULSE 69–83; RESP 18–21; TEMP 97.6–98.2; O2SAT 95–99
[2017-06-12] MEDS: CHLORHEXIDINE 0.12% (ORAL KIT) 15 ML CUP MT SCH ×2 (08:00→20:00)
[2017-06-12] MEDS: POTASSIUM CHLORIDE 25 MEQ EFFERVESCENT TAB NG SCH (08:58)
[2017-06-12] MEDS: levETIRAcetam 500 MG TAB PO SCH ×2 (08:58→22:15)
[2017-06-12] MEDS: LACTOBACILLUS ACIDOPHILUS TAB PO SCH ×3 (08:59→18:03)
[2017-06-12] MEDS: SODIUM HYPOCHLORITE 0.125% 500 ML BTL TOPICAL SCH (08:59)
[2017-06-12] MEDS: HEPARIN SODIUM - SQ 10,000 UNITS/ML VIAL SQ SCH ×2 (08:59→22:17)
[2017-06-12] MEDS: FOLIC ACID 1 MG TAB PEG SCH (08:59)
[2017-06-12] MEDS: FUROSEMIDE 20 MG TAB PO SCH (08:59)
[2017-06-12] MEDS: THIAMINE HCL 100 MG TAB PO SCH (08:59)
[2017-06-12] MEDS: LANSOPRAZOLE SOLUTAB 30 MG TAB NG SCH (08:59)
[2017-06-12] MEDS: ARTIFICIAL TEARS OPTH SOLN 15 ML BTL EACH EYE SCH ×3 (09:00→18:09)
[2017-06-12] MEDS: NYSTATIN 100,000 U/GM PWD 15 GM BTL TOPICAL SCH ×2 (09:00→22:16)
[2017-06-12] MEDS: MUPIROCIN 2% OINT 1 APPLIC/GM SYR EACH NARE SCH ×2 (09:11→22:16)
[2017-06-12] MEDS: MORPHINE SULFATE 8 MG/ML INJ IV PUSH PRN ×3 (10:31→18:03)
--- NOTE | 2017-06-12 13:23 | HHI.PR ---
Subjective Remarks Follow-up for hyponatremia, osmotic demyelination syndrome. Patient seen and examined. Lying in bed. Pt reported a slight "sore throat this morning." Said Chloraseptic spray has been helpful Pt reported phlegm as improving, yet noted he feels "it gets hung up on my tube. " Pt requesting removal of trach-tube. Pt continued to report mild discomfort associated with the PEG site. Stated early satiety with oral intake. Pt reported increase in "sleeping medication did the trick." Pt denied fever, cough, shortness of breath,nausea or vomiting, bloody urine or stool. PMV in place. Afebrile. Blood pressure noted to be stable. Per RN (Elen), no new issues/concerns developed over night or since start of shift. Objective Vitals Vital Signs Date Time Temp Pulse Resp B/P Pulse Ox O2 Delivery O2 Flow Rate FiO2 06/12/17 12:42 97.6 77 19 114/63 97 06/12/17 09:35 98 Trach Collar 4.00 06/12/17 09:35 4.00 28 06/12/17 08:50 Trach Collar 6.00 06/12/17 08:50 71 06/12/17 08:08 98.2 78 21 97/57 99 06/12/17 04:00 Trach Collar 6.00 06/12/17 04:00 97.7 76 18 104/68 95 06/12/17 00:00 97.6 69 18 101/58 98 06/12/17 00:00 Trach Collar 6.00 06/11/17 20:00 98.1 76 20 108/62 98 06/11/17 20:00 Trach Collar 6.00 06/11/17 19:37 73 06/11/17 17:39 98 Nasal Cannula 2.00 06/11/17 16:00 97.9 73 20 101/60 98 06/11/17 13:38 78 I/O 06/11/17 06/11/17 06/11/17 06/12/17 06/12/17 06/12/17 07:00 15:00 23:00 07:00 15:00 23:00 Intake Total 480 ml 240 ml Output Total 400 ml 750 ml 300 ml Balance -400 ml -270 ml -60 ml Intake Oral 480 ml 240 ml Output Urine Total 400 ml 750 ml 300 ml # Bowel Movements 0 0 0 Objective Remarks GENERAL: Laying abed, in NAD. Pt speaking as t-tube is capped. SKIN: Warm and dry. Scabs noted on left side of head, improved. HEAD: Normocephalic. EYES: No scleral icterus. No injection or drainage. NECK: Supple, trachea midline. Lymphadenopathy of right superior cervical chain noted. Throat without erythema/injection. CARDIOVASCULAR: Regular rate and rhythm without murmurs, gallops, or rubs. RESPIRATORY: Breath sounds equal bilaterally.No rhonchi or wheezes noted. No accessory muscle use. GASTROINTESTINAL: Abdomen soft, nondistended. Pt reported pain/discomfort at site of former PEG tube upon palpation. MUSCULOSKELETAL: No cyanosis, or edema. PSYCHOLOGICAL: A&O x3, no overt signs/symptoms of depression and/or anxiety.Speech clear and fluent. Pt reported having a court date "that's been moved up." Reported some anxiety associated with it yet said "I think they will dismiss the charges." Procedures 03/02/2017 - arterial line and central line placement. 03/25/2017 - central line placement and intubation 06/06/17 -PEG tube replaced (Dr. Estevez). Medications and IVs Current Medications Medications (Trade) Dose Ordered Sig/Mae Route Start Time Stop Time Status Last Admin (Tears Naturale Opth Soln) 1 drop TID EACH EYE 03/20/17 09:00 06/12/17 09:00 (Zofran Inj) 4 mg Q6H PRN IV 03/20/17 07:30 06/08/17 12:10 (Senokot) 17.2 mg Q12H PRN PO 03/20/17 07:30 (Bactroban Nasal 2% Oint) Taper BID EACH NARE 03/20/17 09:00 03/16/18 08:59 06/12/17 09:11 (Lactinex) 1 tab TID PO 03/24/17 18:00 06/12/17 08:59 (NS Flush) UNSCH PRN IVF 03/25/17 10:15 06/11/17 21:30 (Peridex 0.12% Liq) 15 ml BID@08,20 MT 03/25/17 20:00 06/10/17 21:56 (Tylenol) 500 mg Q6H PRN PO 04/01/17 23:15 05/12/17 09:54 (Colace Liq) 100 mg Q12HR PO 04/03/17 21:00 Hold 04/13/17 11:42 (Mycostatin Powder) 1 applic Q12HR TOPICAL 04/03/17 21:00 06/12/17 09:00 (Vitamin B1) 100 mg DAILY PO 04/05/17 09:00 06/12/17 08:59 (Ativan Inj) 1 mg Q2H PRN IV PUSH 04/13/17 11:00 04/19/17 17:41 (Mag-Ox) 800 mg UNSCH PRN PO 04/14/17 18:00 (Prevacid Odt) 30 mg DAILY NG 04/27/17 09:00 06/12/17 08:59 (Keppra Liq) 1,000 mg Q12HR NG 04/27/17 21:00 Hold 05/31/17 08:59 (Heparin Inj) 5,000 units Q12HR SQ 04/27/17 21:00 06/12/17 08:59 (Dakin'S 0.125% Soln) 100 ml DAILY TOPICAL 05/02/17 12:00 06/12/17 08:59 (Lactulose Liq) 30 ml Q12H PRN PO 05/10/17 17:00 (Roxanol Liq) 5 mg Q4H PRN G-TUBE 05/12/17 14:45 06/10/17 21:54 (Folate) 1 mg DAILY PEG 05/21/17 09:00 06/12/17 08:59 (Benadryl Liq) 12.5 mg Q4H PRN PO 05/27/17 19:15 05/31/17 18:43 (Morphine Inj) 5 mg Q4H PRN IV PUSH 06/01/17 07:45 06/12/17 10:31 (Benadryl Inj) 12.5 mg Q4H PRN IV 06/01/17 09:15 06/02/17 22:49 (Chloraseptic Balko) 2 spray Q2H PRN OROPHARYNG 06/02/17 10:45 06/11/17 12:23 (K-Lyte Cl Eff) 25 meq DAILY NG 06/06/17 12:45 06/12/17 08:58 (Lasix) 20 mg DAILY PO 06/07/17 09:00 06/12/17 08:59 (Keppra) 1,000 mg Q12HR PO 06/09/17 09:00 06/12/17 08:58 (Desyrel) 75 mg HS PO 06/11/17 21:00 06/11/17 21:27 Urinary Catheter: Yes Assessment to: Continue Johns insert reason: Prolonged Immobilization Date of Insertion: May 14, 2017 A/P Problem List: (1) Chronic hyponatremia ICD Code: E87.1 Status: Acute (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 Sandhu is a 61 year old male with a history of alcohol abuse, severe hypernatremia who presented to the ED on 03/02/2017 due to worsening fatigue, weakness that started 13 days prior to this hospitalization. He was found to have significant delirium. He admitted to drinking alcohol as well as taking xanax as well. ED work up indicated Na 99, Bilirubin 8.9, Lactate 9.8, Ammonia 60, CK 7000, troponin 4.9, Creatinine 1.5, bicarb 13. His WBC was 12, Platelets 112, INR 1.9. Meld score 26. He was severely hydrated. Patient was started on isotonic saline in an effort to improve hypovolemia. Patients sodium corrected too rapidly. Patient was treated for distributive shock, alcohol withdrawal and electrolyte imbalances in the ICU. 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 Chronic severe hyponatremia Bilateral thalamic stroke Seizures - Continue Keppra 1000 mg PO every 12 hours. - Lorazepam 1 mg every 2 hours PO for seizures. Alcoholic liver disease Alcohol dependence Lower extremity thigh edema, improving - CT abdomen shows liver cirrhosis. - Continue folic acid and thiamine. - Furosemide 20 mg PO daily. - KCL eff 25 meq PO daily while on Lasix. - Monitor UO, electrolytes and intake closely while on diuretics. - PT and OT services continue, endurance is currently poor/highly limited. Dependent on assistance for many ADL's. Acute hypoxemic and hypercapnic respiratory failure - Status post tracheostomy on 04/16/2017. Pulmonology following. - Levsin available PRN for increased tracheal secretions. - Continue Duonebs scheduled. PEG site infection - PEG site culture growing pseudomonas and Group D Enterococcus on 06/01/17. Removed and status post replacement 06/06/17. - Speech following patient, tolerating PO intake. Recommendations for mechanical soft and thin liquids. Monitor PO intake closely. Monitor for aspiration. - Levaquin (started 06/01/17 - stopped 06/08/17) for infected PEG site. Pain at former PEG site is reported. -Peg site discomfort, Tylenol. Sore throat -Chloraseptic spray -Improving. Depression Insomnia - Continue Trazodone 50 mg PO HS. Monitor for effect or over sedation. - Monitor for suicidal ideation. No suicidal ideation at this time. - Trazodone increased to 75 mg PO HS; improved sleep reported. Upper respiratory bacterial infection, acute on chronic: Likely colonization and source of active infection. - Sputum culture growing Pseudomonas aeruginosa and Group D Enterococcus on 05/30/17. - Levaquin course completed. Urinary tract infection, resolved. - Urine culture + Klebsiella pneumoniae and Enterococcus faecalis. - DCd ceftriaxone, course completed. Prolonged immobility: Continue PT. Request stretcher chair and possibility of tolerating daily during meals. -Pt to do exercises while in bed, 3-5 times/day per Physical Therapy Chronic pain: Continue Roxanol 5 mg PO q4h PRN per pain scale. Continue Morphine 5 mg IV q4h PRN per pain scale. Hypokalemia, resolved: Continue kcl eff 25 meq PO daily. GI prophylaxis: Prevacid DVT Prophylaxis: Heparin Case discussed with pt, RN (Elen) and Dr. Harman. Discharge Planning CM continues to work on placement. Pt under consideration by a facility. Kevyn Milan Jr. Jun 12, 2017 13:23
[2017-06-12] MEDS: traZODone HCL 50 MG TAB PO SCH (22:24)
[2017-06-13] VITALS (7 sets, daily range): BP systolic 101–120; BP diastolic 56–72; PULSE 79–87; RESP 16–20; TEMP 98–98.6; O2SAT 92–99
[2017-06-13] MEDS: CHLORHEXIDINE 0.12% (ORAL KIT) 15 ML CUP MT SCH ×2 (08:00→20:00)
[2017-06-13] MEDS: FOLIC ACID 1 MG TAB PEG SCH (08:19)
[2017-06-13] MEDS: THIAMINE HCL 100 MG TAB PO SCH (08:19)
[2017-06-13] MEDS: POTASSIUM CHLORIDE 25 MEQ EFFERVESCENT TAB NG SCH (08:19)
[2017-06-13] MEDS: FUROSEMIDE 20 MG TAB PO SCH (08:19)
[2017-06-13] MEDS: levETIRAcetam 500 MG TAB PO SCH ×2 (08:20→20:52)
[2017-06-13] MEDS: LANSOPRAZOLE SOLUTAB 30 MG TAB NG SCH (08:20)
[2017-06-13] MEDS: LACTOBACILLUS ACIDOPHILUS TAB PO SCH ×3 (08:20→16:09)
[2017-06-13] MEDS: HEPARIN SODIUM - SQ 10,000 UNITS/ML VIAL SQ SCH ×2 (08:20→20:52)
[2017-06-13] MEDS: ARTIFICIAL TEARS OPTH SOLN 15 ML BTL EACH EYE SCH ×3 (08:24→16:20)
[2017-06-13] MEDS: MUPIROCIN 2% OINT 1 APPLIC/GM SYR EACH NARE SCH ×2 (08:24→20:51)
[2017-06-13] MEDS: SODIUM HYPOCHLORITE 0.125% 500 ML BTL TOPICAL SCH (08:24)
[2017-06-13] MEDS: NYSTATIN 100,000 U/GM PWD 15 GM BTL TOPICAL SCH ×2 (08:25→20:54)
[2017-06-13] MEDS: MORPHINE SULFATE ORAL SOLN 10 MG/0.5 ML SYRINGE G-TUBE PRN ×3 (11:56→20:52)
--- NOTE | 2017-06-13 12:17 | HHI.PR ---
Subjective Remarks Follow-up for hyponatremia, osmotic demyelination syndrome. Patient seen and examined. Lying in bed. Pt reported sore throat was "gone" and "whatever that spray was made it go away." Pt continued to report mild discomfort associated with the PEG site, which is "slowly going away". He again noted early satiety with oral intake. Pt reported "sleeping medication is really helping me sleep." Pt denied fever, cough, shortness of breath,nausea or vomiting, bloody urine or stool. PMV in place. Afebrile. Blood pressure noted to be stable. Per RN (Elen), no new issues/concerns developed over night or since start of shift. Objective Vitals Vital Signs Date Time Temp Pulse Resp B/P Pulse Ox O2 Delivery O2 Flow Rate FiO2 06/13/17 08:40 98.1 79 19 110/72 98 06/13/17 08:40 86 06/13/17 08:25 98 21 06/13/17 05:00 98.1 82 18 107/58 99 06/13/17 00:00 98.5 81 18 101/63 98 06/12/17 22:44 Trach Collar 6.00 06/12/17 20:30 98.0 83 18 106/66 99 06/12/17 20:19 76 06/12/17 20:00 Trach Collar 6.00 06/12/17 18:08 99 Trach Collar 6.00 28 06/12/17 16:08 98.2 76 19 113/58 99 06/12/17 12:42 97.6 77 19 114/63 97 I/O 06/12/17 06/12/17 06/12/17 06/13/17 06/13/17 06/13/17 07:00 15:00 23:00 07:00 15:00 23:00 Intake Total 240 ml 600 ml Output Total 300 ml 500 ml 350 ml 700 ml Balance -60 ml 100 ml -350 ml -700 ml Intake Oral 240 ml 600 ml Output Urine Total 300 ml 500 ml 350 ml 700 ml # Bowel Movements 0 1 Objective Remarks GENERAL: Laying abed, in NAD. Pt speaking as t-tube is capped. SKIN: Warm and dry. Scabs noted on left side of head, improving. HEAD: Normocephalic. EYES: No scleral icterus. No injection or drainage. NECK: Supple, trachea midline. Lymphadenopathy of right superior cervical chain noted; seemed smaller than yesterday. Throat without erythema/injection. CARDIOVASCULAR: Regular rate and rhythm without murmurs, gallops, or rubs. RESPIRATORY: Breath sounds equal bilaterally.No rhonchi or wheezes noted. No accessory muscle use. GASTROINTESTINAL: Abdomen soft, nondistended. Pt reported pain/discomfort at site of former PEG tube upon palpation. MUSCULOSKELETAL: No cyanosis, or edema. PSYCHOLOGICAL: A&O x3, no overt signs/symptoms of depression and/or anxiety.Speech clear and fluent. Pt reported having a court date "that's been moved up." Chart reviewed regarding court date for June. Pt stated "I'm not concerned over a third degree misdemeanor charge. I think they'll dismiss it anyway." Procedures 03/02/2017 - arterial line and central line placement. 03/25/2017 - central line placement and intubation 06/06/17 -PEG tube replaced (Dr. Estevez). Urinary Catheter: Yes Assessment to: Continue (Changed from Johns to condom catheter. 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 Sandhu is a 61 year old male with a history of alcohol abuse, severe hypernatremia who presented to the ED on 03/02/2017 due to worsening fatigue, weakness that started 13 days prior to this hospitalization. He was found to have significant delirium. He admitted to drinking alcohol as well as taking xanax as well. ED work up indicated Na 99, Bilirubin 8.9, Lactate 9.8, Ammonia 60, CK 7000, troponin 4.9, Creatinine 1.5, bicarb 13. His WBC was 12, Platelets 112, INR 1.9. Meld score 26. He was severely hydrated. Patient was started on isotonic saline in an effort to improve hypovolemia. Patients sodium corrected too rapidly. Patient was treated for distributive shock, alcohol withdrawal and electrolyte imbalances in the ICU. 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 Chronic severe hyponatremia Bilateral thalamic stroke Seizures - Continue Keppra 1000 mg PO every 12 hours. - Lorazepam 1 mg every 2 hours PO for seizures. Alcoholic liver disease Alcohol dependence Lower extremity thigh edema, improving - CT abdomen shows liver cirrhosis. - Continue folic acid and thiamine. - Furosemide 20 mg PO daily. - KCL eff 25 meq PO daily while on Lasix. - Monitor UO, electrolytes and intake closely while on diuretics. - PT and OT services continue, endurance is currently poor/highly limited. Dependent on assistance for many ADL's. Acute hypoxemic and hypercapnic respiratory failure - Status post tracheostomy on 04/16/2017. Pulmonology following. - Levsin available PRN for increased tracheal secretions. - Continue Duonebs scheduled. PEG site infection - PEG site culture growing pseudomonas and Group D Enterococcus on 06/01/17. Removed and status post replacement 06/06/17. - Speech following patient, tolerating PO intake. Recommendations for mechanical soft and thin liquids. Monitor PO intake closely. Monitor for aspiration. - Levaquin (started 06/01/17 - stopped 06/08/17) for infected PEG site. Pain at former PEG site is reported. -Peg site discomfort, Tylenol. -Consider d/c of tube feeding as pt has resumed PO intake. Sore throat -Chloraseptic spray -Improving. Depression Insomnia - Continue Trazodone 50 mg PO HS. Monitor for effect or over sedation. - Monitor for suicidal ideation. No suicidal ideation at this time. -Trazodone increased to 75 mg PO HS; improved sleep reported. Upper respiratory bacterial infection, acute on chronic: Likely colonization and source of active infection. - Sputum culture growing Pseudomonas aeruginosa and Group D Enterococcus on 05/30/17. - Levaquin course completed. Urinary tract infection, resolved. - Urine culture + Klebsiella pneumoniae and Enterococcus faecalis. - DCd ceftriaxone, course completed. Prolonged immobility: Continue PT. Request stretcher chair and possibility of tolerating daily during meals. -Pt to do exercises while in bed, 3-5 times/day per Physical Therapy Chronic pain: Continue Roxanol 5 mg PO q4h PRN per pain scale. Hypokalemia, resolved: Continue kcl eff 25 meq PO daily. GI prophylaxis: Prevacid DVT Prophylaxis: Heparin Case discussed with pt, RN (Elen) and Dr. Harman. Discharge Planning CM continues to work on placement. Pt under consideration by a facility. Kevyn Milan Jr. Jun 13, 2017 12:17
--- NOTE | 2017-06-13 17:31 | HHI.HCPN ---
Reason for visit a. To assist with evaluation and management of symptoms including: dyspnea, pain. b. To assist medical decision maker(s) with: better understanding of current medical conditions; weighing benefits/burdens of medical treatment options; making medical treatment decisions. . Subjective/Interval History Mr. Sandhu is a 61 y/o male with a diagnosis of osmotic demyelination syndrome. Patient status post PEG tube placement on 04/15/17 and tracheostomy on 04/16/17. He was transferred out of medical ICU to medical floor on 05/07/17. Patient was seen in his room, resting in bed in no acute distress. Able to communicate , verbalizing without difficulty. Alert to self, place and situation. Following simple commands. Participating in PT, Gaining strength to all 4 extremities but remains weak on the left side. Currently using Passy Muer trach during the day and while eating. EGD with PEG tube placement on 06/06/17, previous PEG tube became infected and was discontinued. Speech therapy following, currently on mechanical soft diet and thin liquids. Reporting early satiety secondary to nighttime enteral feeding. Reporting that food does not taste good, wishing to get condiments at mealtime. Endorsing generalized pain, mainly on PEG tube site. Denies nausea or vomiting. Patient tearful at times, reports that he has been in telephone contact with her daughter Tamanna who is currently in [facility]. He tells me that she has been granted work release and she is able to carry a cell phone with her during the day. Patient reports that he has been providing frequent medical updates to daughter. According to patient, daughter is to be released from custody in October. Patient became tearful while talking about daughter, he reports looking forward to going home. Patient said that daughter has offered her assistance once she is released from [facility]. Ongoing discharge planning. Patient requiring long-term placement, director of casework services following. As per notes, patient has been referred back to [facility] for possible admit, [facility] is still evaluating patient. Offered spiritual services, patient accepted. Referral made. Ongoing emotional support and active listening provided. Patient appreciative of my f/u visit today. . Family/friend interactions No family at bedside. . Advance Directives Living Will: Never completed Health Care Surrogate: Never completed Durable Power of Enamel Drier: Never completed Advance Directive Specifics Health Care Surrogate(s): Margot Nolen is, per [place] statues bam care decision proxy. Now in [facility] (#[phone]). Facilitation of conversations with Tamanna can be arranged through booking (#[phone]) in emergency situations to address goals of care.Ask for a Lucila on staff as shifts rotate throughout the week. Significant change in goals: Goals of care remain unchanged. . Objective Vital Signs Date Time Temp Pulse Resp B/P Pulse Ox O2 Delivery O2 Flow Rate FiO2 06/13/17 16:50 98.1 81 20 120/59 92 06/13/17 12:00 98.6 82 18 110/56 98 06/13/17 08:40 98.1 79 19 110/72 98 06/13/17 08:40 Trach Collar 06/13/17 08:40 86 06/13/17 08:25 98 21 06/13/17 05:00 98.1 82 18 107/58 99 06/13/17 00:00 98.5 81 18 101/63 98 06/12/17 22:44 Trach Collar 6.00 06/12/17 20:30 98.0 83 18 106/66 99 06/12/17 20:19 76 06/12/17 20:00 Trach Collar 6.00 06/12/17 18:08 99 Trach Collar 6.00 28 Intake & Output 06/13/17 06/13/17 07:00 19:00 Output Total 1050 ml Balance -1050 ml Output Urine Total 1050 ml Physical Exam CONSTITUTIONAL/GENERAL: This is an thin, pale patient in no apparent distress. Passy Tammy trach in place. TUBES/LINES/DRAINS: Tracheostomy, PEG tube, condom catheter, SCDs. Bilateral heel boots. SKIN: Ecchymosis bilateral UEs and face. Skin temperature appropriate. CARDIOVASCULAR: Regular rate and rhythm. Edema to upper and lower extremities. RESPIRATORY/CHEST: Symmetric, unlabored breathing. Coarse rhonchi anteriorly. GASTROINTESTINAL: Abdomen round, soft, nontender. Positive bowel sounds. PEG tube in place. GENITOURINARY: Without palpable bladder distension. Condom catheter in place. MUSCULOSKELETAL: No mottling or clubbing. Moving all extremities. NEUROLOGICAL: Awake, alert to self, place and situation. Verbal, able to communicate needs. Following commands. PSYCHIATRIC: Calm. Tearful at times. . Diagnostic Tests Procedures * 06/06/17 -PEG tube replaced * 04/16/17 -tracheostomy placement * 04/16/17 -endotracheal extubation * 04/15/17 - PEG tube placed. * 03/25/17 -Endotracheal intubation. . Assessment and Plan Disease Oriented Problem List: (1) Osmotic myelinolysis (2) Central pontine myelinolysis (3) Liver disease (4) Seizure Symptom Scale: (1) Dyspnea 0-10 Scale: Unable to quantify Comment: Tolerating room air. (2) Pain 0-10 Scale: 0 Comment: Prolonged hospitalization/bedrest, muscular weakness and atrophy. (3) Debility 0-10 Scale: Unable to quantify Comment: Secondary to acute illness and prolonged hospitalization. Pertinent Non-Medical Issues Psychosocial: 61-year-old with long-standing history of alcohol use and abuse, 1 daughter who is incarcerated in the [facility] sn[facility]. Spiritual: No reported. Legal: Daughter Tamanna is, per [facility] care decision proxy. She is currently incarcerated at [facility]. They are permitting her to participate in decisions at this time. Ethical issues impacting care: As stated above. . Important Contacts * Tamanna Sandhu, daughter/ HCP: Margot Tamanna is, per [facility] care decision proxy. . Now in [facility] (#[phone]). Facilitation of conversations with Tamanna can be arranged through booking (#[phone]) in emergency situations to address goals of care.Ask for a Vernon on staff as shifts rotate throughout the week. * Guillermo Roberts, daughter friend: [phone] (cell)- has frequent contact jr Antonioy - has been very helpful. Prognosis Mr. Sandhu is a 61-year-old male diagnosed with osmotic demyelination syndrome. Status post tracheostomy and PEG tube placement. Patient with improved physical mobility, participating in PT. Remains bedbound at this time. Likely requiring long-term placement. Patient remains at high risk for further complications, continue decline and . . Code Status: Full Code Plan * HEALTHCARE DECISION-MAKING: Patient participating in healthcare decision- making. Patient is , according to [place] statute, health care proxy decision making falls to his only daughter, Tamanna. Now in [facility] (#[phone]). Facilitation of conversations with Tamanna can be arranged through booking (#[phone]) in emergency situations to address goals of care. Ask for a Vernon on staff as shifts rotate throughout the week. * FULL CODE * GOALS OF CARE: 06/13/17 -Goals of care remain unchanged. As per patient and daughter, goal of therapy is to continue with aggressive management to include full code. Ongoing discharge planning, patient requires long-term placement. Difficult placement secondary to needs. * SYMPTOMS: =Dyspnea: Improved. Currently tolerating room. =Debility: Secondary to burden of disease, acute illness and prolonged hospitalization. Significant improvement in muscle strength, continues participating in physical therapy. =Pain: secondary to prolonged hospitalization, tubes and bedrest. Morphine 5 mg Q4h PRN available. =Insomnia, currently on trazodone 75 mg at at bedtime. * Ongoing emotional support and active listening provided. Patient appreciative of my follow-up visit today. * Spiritual services offered and accepted by patient. Referral made. * Palliative care contact information has been provided to patient's daughter and her boyfriend. * Palliative care will continue to follow as needed further clarifications of goals of care/emotional support as patient's clinical course continues to evolve. . Time Spent Total Floor Time (mins): 28 (Total time to include review medical records, physical exam, goals of care conversation with patient.) >50% Counseling/Coord of Care: Yes Attestation To help prompt me to consider important information that might be impacting today's encounter and assessment, information from prior notes written by myself or my colleagues may have been "brought forward" into today's note. My signature on this note, however, is an attestation that I personally performed the exam, history, and/or decision-making noted today, and, unless otherwise indicated, the interactions with patient, family, and staff as well as the review of records all occurred today. I also attest that the listed assessment and stated plan reflect my best clinical judgment today based on the combination of historical information, prior notes, and today's exam/ interactions. When time spent is documented, it refers only to time spent today by the signer, or if indicated, combined time spent today by collaborating physician/nurse practitioner. Melissa Mcclure Jun 13, 2017 17:31
[2017-06-13] MEDS: traZODone HCL 50 MG TAB PO SCH (20:52)
[2017-06-14] VITALS (9 sets, daily range): BP systolic 104–128; BP diastolic 60–73; PULSE 72–88; RESP 16–20; TEMP 97.8–98.3; O2SAT 94–100
[2017-06-14] MEDS: CHLORHEXIDINE 0.12% (ORAL KIT) 15 ML CUP MT SCH ×2 (08:00→20:00)
[2017-06-14 08:02] LABS: HEMATOCRIT 27.8 % (39.0-51.0); MEAN CELL VOLUME 94.3 FL (80.0-100.0); MEAN CORPUSCULAR HEMOGLOBIN 32.9 PG (27.0-34.0); MEAN CORPUSCULAR HGB CONC 34.9 % (32.0-36.0); PLATELET COUNT 113 TH/MM3 (150-450); RED BLOOD COUNT 2.95 MIL/MM3 (4.50-5.90); RED CELL DISTRIBUTION WIDTH 13.6 % (11.6-17.2); REVIEW FLAG FINAL; WHITE BLOOD COUNT 6.5 TH/MM3 (4.0-11.0)
[2017-06-14 08:25] LABS: BICARBONATE 25.7 MEQ/L (21.0-32.0); POTASSIUM 3.8 MEQ/L (3.5-5.1)
[2017-06-14] MEDS: SODIUM HYPOCHLORITE 0.125% 500 ML BTL TOPICAL SCH (09:00)
[2017-06-14] MEDS: MUPIROCIN 2% OINT 1 APPLIC/GM SYR EACH NARE SCH ×2 (09:00→20:27)
[2017-06-14] MEDS: HEPARIN SODIUM - SQ 10,000 UNITS/ML VIAL SQ SCH ×2 (10:25→20:27)
[2017-06-14] MEDS: ARTIFICIAL TEARS OPTH SOLN 15 ML BTL EACH EYE SCH ×3 (10:25→17:05)
[2017-06-14] MEDS: THIAMINE HCL 100 MG TAB PO SCH (10:26)
[2017-06-14] MEDS: FUROSEMIDE 20 MG TAB PO SCH (10:26)
[2017-06-14] MEDS: levETIRAcetam 500 MG TAB PO SCH ×2 (10:26→20:27)
[2017-06-14] MEDS: LACTOBACILLUS ACIDOPHILUS TAB PO SCH ×3 (10:26→17:05)
[2017-06-14] MEDS: LANSOPRAZOLE SOLUTAB 30 MG TAB NG SCH (10:26)
[2017-06-14] MEDS: FOLIC ACID 1 MG TAB PEG SCH (10:26)
[2017-06-14] MEDS: POTASSIUM CHLORIDE 25 MEQ EFFERVESCENT TAB NG SCH (10:27)
[2017-06-14] MEDS: NYSTATIN 100,000 U/GM PWD 15 GM BTL TOPICAL SCH ×2 (10:29→20:28)
--- NOTE | 2017-06-14 11:46 | HHI.PR ---
Subjective Remarks Follow-up for hyponatremia, osmotic demyelination syndrome, debilitation Patient seen and examined. Lying in bed. Pt reported sore throat was reported as "mild'. Pt continued to report mild discomfort associated with the PEG site, which is "slowly going away". Pt reported he is "jumping back in to eating" as his tube feeding is being held. Good sleep was reported. Pt noted being weak, not able to ambulate. Pt said he is sitting up at the bedside. Pt denied fever, cough, shortness of breath,nausea or vomiting, bloody urine or stool. Pt reported urinary catheter changed (condom catheter) and has "burning when I pee". PMV in place. Afebrile. Blood pressure noted to be stable. Per RN (Zhao), no new issues/concerns developed over night or since start of shift. Objective Vitals Vital Signs Date Time Temp Pulse Resp B/P Pulse Ox O2 Delivery O2 Flow Rate FiO2 06/14/17 08:35 98 06/14/17 08:00 97.9 72 18 107/61 96 06/14/17 04:00 97.9 79 16 125/64 100 06/14/17 00:00 98.1 83 16 104/62 98 06/13/17 20:00 87 06/13/17 20:00 Room Air 06/13/17 20:00 98.0 87 16 110/64 97 06/13/17 16:50 98.1 81 20 120/59 92 06/13/17 12:00 98.6 82 18 110/56 98 I/O 06/13/17 06/13/17 06/13/17 06/14/17 06/14/17 06/14/17 07:00 15:00 23:00 07:00 15:00 23:00 Intake Total 600 ml 120 ml 0 ml Output Total 700 ml 600 ml 525 ml 600 ml Balance -700 ml 0 ml -405 ml -600 ml Intake Oral 600 ml 120 ml 0 ml Output Urine Total 700 ml 600 ml 525 ml 600 ml # Bowel Movements 3 0 0 Result Diagram: 06/14/1764306/14/17643 Objective Remarks GENERAL: Laying abed, in NAD. Pt speaking as t-tube is capped. SKIN: Warm and dry. Scabs noted on left side of head, improving. HEAD: Normocephalic. EYES: No scleral icterus. No injection or drainage. NECK: Supple, trachea midline. Lymphadenopathy of right superior cervical chain noted; decreased in size. Throat without erythema/injection. CARDIOVASCULAR: Regular rate and rhythm without murmurs, gallops, or rubs. RESPIRATORY: Breath sounds equal bilaterally.No rhonchi or wheezes noted. No accessory muscle use. GASTROINTESTINAL: Abdomen soft, nondistended. Pt reported pain/discomfort at site of former PEG tube upon palpation. MUSCULOSKELETAL: No cyanosis, or edema. Upper body strength is 4/5, lower body strength is 3/5. PSYCHOLOGICAL: A&O x3, no overt signs/symptoms of depression and/or anxiety.Speech clear and fluent. Procedures 03/02/2017 - arterial line and central line placement. 03/25/2017 - central line placement and intubation 06/06/17 -PEG tube replaced (Dr. Estevez). Medications and IVs Current Medications Medications (Trade) Dose Ordered Sig/Mae Route Start Time Stop Time Status Last Admin (Tears Naturale Opth Soln) 1 drop TID EACH EYE 03/20/17 09:00 06/14/17 10:25 (Zofran Inj) 4 mg Q6H PRN IV 03/20/17 07:30 06/08/17 12:10 (Senokot) 17.2 mg Q12H PRN PO 03/20/17 07:30 (Bactroban Nasal 2% Oint) Taper BID EACH NARE 03/20/17 09:00 03/16/18 08:59 06/14/17 09:00 (Lactinex) 1 tab TID PO 03/24/17 18:00 06/14/17 10:26 (NS Flush) UNSCH PRN IVF 03/25/17 10:15 06/11/17 21:30 (Peridex 0.12% Liq) 15 ml BID@08,20 MT 03/25/17 20:00 06/14/17 08:00 (Tylenol) 500 mg Q6H PRN PO 04/01/17 23:15 05/12/17 09:54 (Colace Liq) 100 mg Q12HR PO 04/03/17 21:00 Hold 04/13/17 11:42 (Mycostatin Powder) 1 applic Q12HR TOPICAL 04/03/17 21:00 06/14/17 10:29 (Vitamin B1) 100 mg DAILY PO 04/05/17 09:00 06/14/17 10:26 (Ativan Inj) 1 mg Q2H PRN IV PUSH 04/13/17 11:00 04/19/17 17:41 (Mag-Ox) 800 mg UNSCH PRN PO 04/14/17 18:00 (Prevacid Odt) 30 mg DAILY NG 04/27/17 09:00 06/14/17 10:26 (Keppra Liq) 1,000 mg Q12HR NG 04/27/17 21:00 Hold 05/31/17 08:59 (Heparin Inj) 5,000 units Q12HR SQ 04/27/17 21:00 06/14/17 10:25 (Dakin'S 0.125% Soln) 100 ml DAILY TOPICAL 05/02/17 12:00 06/14/17 09:00 (Lactulose Liq) 30 ml Q12H PRN PO 05/10/17 17:00 (Roxanol Liq) 5 mg Q4H PRN G-TUBE 05/12/17 14:45 06/13/17 20:52 (Folate) 1 mg DAILY PEG 05/21/17 09:00 06/14/17 10:26 (Benadryl Liq) 12.5 mg Q4H PRN PO 05/27/17 19:15 05/31/17 18:43 (Benadryl Inj) 12.5 mg Q4H PRN IV 06/01/17 09:15 06/02/17 22:49 (Chloraseptic [place]) 2 spray Q2H PRN OROPHARYNG 06/02/17 10:45 06/11/17 12:23 (K-Lyte Cl Eff) 25 meq DAILY NG 06/06/17 12:45 06/14/17 10:27 (Lasix) 20 mg DAILY PO 06/07/17 09:00 06/14/17 10:26 (Keppra) 1,000 mg Q12HR PO 06/09/17 09:00 06/14/17 10:26 (Desyrel) 75 mg HS PO 06/11/17 21:00 06/13/17 20:52 Urinary Catheter: Yes Assessment to: Continue Johns insert reason: Prolonged Immobilization Date of Insertion: May 14, 2017 A/P Problem List: (1) Chronic hyponatremia ICD Code: E87.1 Status: Acute (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 Sandhu is a 61 year old male with a history of alcohol abuse, severe hypernatremia who presented to the ED on 03/02/2017 due to worsening fatigue, weakness that started 13 days prior to this hospitalization. He was found to have significant delirium. He admitted to drinking alcohol as well as taking xanax as well. ED work up indicated Na 99, Bilirubin 8.9, Lactate 9.8, Ammonia 60, CK 7000, troponin 4.9, Creatinine 1.5, bicarb 13. His WBC was 12, Platelets 112, INR 1.9. Meld score 26. He was severely hydrated. Patient was started on isotonic saline in an effort to improve hypovolemia. Patients sodium corrected too rapidly. Patient was treated for distributive shock, alcohol withdrawal and electrolyte imbalances in the ICU. 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 Chronic severe hyponatremia Bilateral thalamic stroke Seizures - Continue Keppra 1000 mg PO every 12 hours. - Lorazepam 1 mg every 2 hours PO for seizures. Debility -PT/OT services to address pt's limitations. -Pt is dependent on many of his ADL's. -Pt is able to sit at side of bed unassisted, unable to stand or walk. Alcoholic liver disease Alcohol dependence Lower extremity thigh edema, improving - CT abdomen shows liver cirrhosis. - Continue folic acid and thiamine. - Furosemide 20 mg PO daily. - KCL eff 25 meq PO daily while on Lasix. - Monitor UO, electrolytes and intake closely while on diuretics. - PT and OT services continue, endurance is currently poor/highly limited. Dependent on assistance for many ADL's. Acute hypoxemic and hypercapnic respiratory failure - Status post tracheostomy on 04/16/2017. Pulmonology following. - Levsin available PRN for increased tracheal secretions. - Continue Duonebs scheduled. PEG site infection - PEG site culture growing pseudomonas and Group D Enterococcus on 06/01/17. Removed and status post replacement 06/06/17. - Speech following patient, tolerating PO intake. Recommendations for mechanical soft and thin liquids. Monitor PO intake closely. Monitor for aspiration. - Levaquin (started 06/01/17 - stopped 06/08/17) for infected PEG site. Pain at former PEG site is reported. -Peg site discomfort, Tylenol. -Consider d/c of tube feeding as pt has resumed PO intake. Sore throat -Chloraseptic spray -Improving. Depression Insomnia - Continue Trazodone 50 mg PO HS. Monitor for effect or over sedation. - Monitor for suicidal ideation. No suicidal ideation at this time. -Trazodone increased to 75 mg PO HS; improved sleep reported. Upper respiratory bacterial infection, acute on chronic: Likely colonization and source of active infection. - Sputum culture growing Pseudomonas aeruginosa and Group D Enterococcus on 05/30/17. - Levaquin course completed. Urinary tract infection, resolved. - Urine culture + Klebsiella pneumoniae and Enterococcus faecalis. - DCd ceftriaxone, course completed. Prolonged immobility: Continue PT. Request stretcher chair and possibility of tolerating daily during meals. -Pt to do exercises while in bed, 3-5 times/day per Physical Therapy Chronic pain: Continue Roxanol 5 mg PO q4h PRN per pain scale. Hypokalemia, resolved: Continue kcl eff 25 meq PO daily. GI prophylaxis: Prevacid DVT Prophylaxis: Heparin Case discussed with pt, RN (Elen) and Dr. Harman. Discharge Planning continues to work on placement. Pt under consideration by a facility. Kevyn Milan Jr. Jun 14, 2017 11:46
[2017-06-14] MEDS: MORPHINE SULFATE ORAL SOLN 10 MG/0.5 ML SYRINGE G-TUBE PRN ×2 (14:20→20:28)
[2017-06-14] MEDS: RESP: ALBUTEROL 2.5 MG/3 ML NEB (PRN) INH (15:28)
[2017-06-14] MEDS: traZODone HCL 50 MG TAB PO SCH (20:27)
[2017-06-14] MEDS: PHENAZOPYRIDINE HCL 100 MG TAB PO SCH (20:28)
[2017-06-15] VITALS (7 sets, daily range): BP systolic 94–125; BP diastolic 56–68; PULSE 70–84; RESP 20; TEMP 97.5–98.5; O2SAT 96–98
[2017-06-15] MEDS: MORPHINE SULFATE ORAL SOLN 10 MG/0.5 ML SYRINGE G-TUBE PRN ×4 (06:15→21:43)
[2017-06-15] MEDS: PHENAZOPYRIDINE HCL 100 MG TAB PO SCH ×3 (06:15→21:41)
[2017-06-15] MEDS ORDERED: cefTRIAXone INJ 1,000 MG in SODIUM CHLORIDE 0.9% INJ 100 ML IV SCH (07:45)
[2017-06-15] MEDS: CHLORHEXIDINE 0.12% (ORAL KIT) 15 ML CUP MT SCH ×2 (08:00→20:00)
[2017-06-15] MEDS ORDERED: HYOSCYAMINE 0.125 MG TAB PO PRN (08:45)
[2017-06-15] MEDS: NYSTATIN 100,000 U/GM PWD 15 GM BTL TOPICAL SCH ×2 (09:00→21:00)
[2017-06-15] MEDS: SODIUM HYPOCHLORITE 0.125% 500 ML BTL TOPICAL SCH (09:00)
[2017-06-15] MEDS: MUPIROCIN 2% OINT 1 APPLIC/GM SYR EACH NARE SCH ×2 (09:00→21:42)
[2017-06-15] MEDS: LANSOPRAZOLE SOLUTAB 30 MG TAB NG SCH (09:26)
[2017-06-15] MEDS: FUROSEMIDE 20 MG TAB PO SCH (09:26)
[2017-06-15] MEDS: levETIRAcetam 500 MG TAB PO SCH ×2 (09:26→21:41)
[2017-06-15] MEDS: LACTOBACILLUS ACIDOPHILUS TAB PO SCH ×3 (09:26→18:04)
[2017-06-15] MEDS: THIAMINE HCL 100 MG TAB PO SCH (09:26)
[2017-06-15] MEDS: HEPARIN SODIUM - SQ 10,000 UNITS/ML VIAL SQ SCH ×2 (09:27→21:42)
[2017-06-15] MEDS: POTASSIUM CHLORIDE 25 MEQ EFFERVESCENT TAB NG SCH (09:27)
[2017-06-15] MEDS: FOLIC ACID 1 MG TAB PEG SCH (09:27)
[2017-06-15] MEDS: ARTIFICIAL TEARS OPTH SOLN 15 ML BTL EACH EYE SCH ×3 (09:27→18:04)
[2017-06-15 10:20] LABS: BACTERIA, URINE MOD /hpf; BLOOD, URINE LARGE (NEG); COMMENT (UR) CULTURE INDICATED; CULTURE IF INDICATED CULTURE INDICATED; GLUCOSE,URINE NEG (NEG); KETONE, URINE NEG (NEG); PH, URINE 7.5 (5.0-8.5); SQUAMOUS EPITHELIAL CELL URINE 1 /hpf (0-5)
[2017-06-15 10:25] LABS: NITRITE,URINE POS (NEG); URINE COLOR DARK-BROWN (YELLW/STRAW)
--- NOTE | 2017-06-15 12:32 | HHI.PR ---
Subjective Remarks Follow-up for hyponatremia, osmotic demyelination syndrome, debilitation Patient seen and examined. Lying in bed. Pt reported sore throat was absent this morning. Pt continued to report mild discomfort associated with the PEG site. He reported having a "bad cramp" of his abdomen this morning. 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 Good sleep was reported. Pt reported increased secretions. Pt denied fever, cough, shortness of breath,nausea or vomiting, bloody urine or stool. Pt continues to report "burning when I pee". Pyridium was reported to be of variable help Afebrile. Blood pressure noted to be stable. Per RN (Davey), no new issues/concerns developed over night or since start of shift. Per RN, PMV was removed due to increased secretions. Objective Vitals Vital Signs Date Time Temp Pulse Resp B/P Pulse Ox O2 Delivery O2 Flow Rate FiO2 06/15/17 08:00 97.5 76 20 125/68 98 06/15/17 04:00 Trach Collar 6.00 28 06/15/17 00:00 Trach Collar 6.00 28 06/14/17 20:00 98.3 83 18 128/73 97 06/14/17 20:00 Trach Collar 6.00 28 06/14/17 16:00 98.3 88 20 110/64 94 06/14/17 15:28 98 Trach Collar 6.00 28 I/O 06/14/17 06/14/17 06/14/17 06/15/17 06/15/17 06/15/17 06:59 14:59 22:59 06:59 14:59 22:59 Intake Total 0 ml 720 ml Output Total 600 ml 1250 ml 1300 ml Balance -600 ml -530 ml -1300 ml Intake Oral 0 ml 720 ml Output Urine Total 600 ml 1250 ml 1300 ml # Bowel Movements 0 3 Result Diagram: 06/14/1744 06/14/17 06 Objective Remarks GENERAL: Laying abed, in NAD. Pt speaking as t-tube is capped. SKIN: Warm and dry. Scabs noted on left side of head, improving. HEAD: Normocephalic. EYES: No scleral icterus. No injection or drainage. NECK: Supple, trachea midline. Lymphadenopathy of right superior cervical chain noted; continues to decrease in size. Throat without erythema/injection. CARDIOVASCULAR: Regular rate and rhythm without murmurs, gallops, or rubs. RESPIRATORY: Breath sounds equal bilaterally.No rhonchi or wheezes noted. No accessory muscle use. GASTROINTESTINAL: Abdomen soft, nondistended. Pt reported pain/discomfort at site of former PEG tube upon palpation. MUSCULOSKELETAL: No cyanosis, or edema. Upper body strength is 4/5, lower body strength is 3/5. PSYCHOLOGICAL: A&O x3, no overt signs/symptoms of depression and/or anxiety.Speech clear and fluent. Procedures 03/02/2017 - arterial line and central line placement. 03/25/2017 - central line placement and intubation 06/06/17 -PEG tube replaced (Dr. Estevez). Medications and IVs Current Medications Medications (Trade) Dose Ordered Sig/Mae Route Start Time Stop Time Status Last Admin (Tears Naturale Opth Soln) 1 drop TID EACH EYE 03/20/17 09:00 06/15/17 09:27 (Zofran Inj) 4 mg Q6H PRN IV 03/20/17 07:30 06/08/17 12:10 (Senokot) 17.2 mg Q12H PRN PO 03/20/17 07:30 (Bactroban Nasal 2% Oint) Taper BID EACH NARE 03/20/17 09:00 03/16/18 08:59 06/15/17 09:00 (Lactinex) 1 tab TID PO 03/24/17 18:00 06/15/17 09:26 (NS Flush) UNSCH PRN IVF 03/25/17 10:15 06/11/17 21:30 (Peridex 0.12% Liq) 15 ml BID@08,20 MT 03/25/17 20:00 06/15/17 08:00 (Tylenol) 500 mg Q6H PRN PO 04/01/17 23:15 05/12/17 09:54 (Colace Liq) 100 mg Q12HR PO 04/03/17 21:00 Hold 04/13/17 11:42 (Mycostatin Powder) 1 applic Q12HR TOPICAL 04/03/17 21:00 06/15/17 09:00 (Vitamin B1) 100 mg DAILY PO 04/05/17 09:00 06/15/17 09:26 (Ativan Inj) 1 mg Q2H PRN IV PUSH 04/13/17 11:00 04/19/17 17:41 (Mag-Ox) 800 mg UNSCH PRN PO 04/14/17 18:00 (Prevacid Odt) 30 mg DAILY NG 04/27/17 09:00 06/15/17 09:26 (Keppra Liq) 1,000 mg Q12HR NG 04/27/17 21:00 Hold 05/31/17 08:59 (Heparin Inj) 5,000 units Q12HR SQ 04/27/17 21:00 06/15/17 09:27 (Dakin'S 0.125% Soln) 100 ml DAILY TOPICAL 05/02/17 12:00 06/15/17 09:00 (Lactulose Liq) 30 ml Q12H PRN PO 05/10/17 17:00 (Roxanol Liq) 5 mg Q4H PRN G-TUBE 05/12/17 14:45 06/14/17 20:28 (Folate) 1 mg DAILY PEG 05/21/17 09:00 06/15/17 09:27 (Benadryl Liq) 12.5 mg Q4H PRN PO 05/27/17 19:15 05/31/17 18:43 (Benadryl Inj) 12.5 mg Q4H PRN IV 06/01/17 09:15 06/02/17 22:49 (Chloraseptic Saline) 2 spray Q2H PRN OROPHARYNG 06/02/17 10:45 06/11/17 12:23 (K-Lyte Cl Eff) 25 meq DAILY NG 06/06/17 12:45 06/15/17 09:27 (Lasix) 20 mg DAILY PO 06/07/17 09:00 06/15/17 09:26 (Keppra) 1,000 mg Q12HR PO 06/09/17 09:00 06/15/17 09:26 (Desyrel) 75 mg HS PO 06/11/17 21:00 06/14/17 20:27 (Pyridium) 100 mg Q8HR PO 06/14/17 22:00 06/16/17 22:00 06/15/17 06:15 (Levsin) 0.125 mg Q4H PRN PO 06/15/17 08:45 06/15/17 09:26 Date of Insertion: May 14, 2017 A/P Problem List: (1) Chronic hyponatremia ICD Code: E87.1 Status: Acute (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 Sandhu is a 61 year old male with a history of alcohol abuse, severe hypernatremia who presented to the ED on 03/02/2017 due to worsening fatigue, weakness that started 13 days prior to this hospitalization. He was found to have significant delirium. He admitted to drinking alcohol as well as taking xanax as well. ED work up indicated Na 99, Bilirubin 8.9, Lactate 9.8, Ammonia 60, CK 7000, troponin 4.9, Creatinine 1.5, bicarb 13. His WBC was 12, Platelets 112, INR 1.9. Meld score 26. He was severely hydrated. Patient was started on isotonic saline in an effort to improve hypovolemia. Patients sodium corrected too rapidly. Patient was treated for distributive shock, alcohol withdrawal and electrolyte imbalances in the ICU. Increased secretions noted; Levsin ordered. UTI positive, culture and sensitivity pending; Rocephin 1 G IV q 24 hrs ordered. Continue Pyridium for dysuria. Calorie count continues. 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 Chronic severe hyponatremia Bilateral thalamic stroke Seizures - Continue Keppra 1000 mg PO every 12 hours. - Lorazepam 1 mg every 2 hours PO for seizures. Debility -PT/OT services to address pt's limitations. -Pt is dependent on many of his ADL's. -Pt is able to sit at side of bed unassisted, unable to stand or walk. Alcoholic liver disease Alcohol dependence Lower extremity thigh edema, improving - CT abdomen shows liver cirrhosis. - Continue folic acid and thiamine. - Furosemide 20 mg PO daily. - KCL eff 25 meq PO daily while on Lasix. - Monitor UO, electrolytes and intake closely while on diuretics. - PT and OT services continue, endurance is currently poor/highly limited. Dependent on assistance for many ADL's. Acute hypoxemic and hypercapnic respiratory failure - Status post tracheostomy on 04/16/2017. Pulmonology following. - Levsin available PRN for increased tracheal secretions. - Continue Duonebs scheduled. PEG site infection - PEG site culture growing pseudomonas and Group D Enterococcus on 06/01/17. Removed and status post replacement 06/06/17. - Speech following patient, tolerating PO intake. Recommendations for mechanical soft and thin liquids. Monitor PO intake closely. Monitor for aspiration. - Levaquin (started 06/01/17 - stopped 06/08/17) for infected PEG site. Pain at former PEG site is reported. -Peg site discomfort, Tylenol. -Consider d/c of tube feeding as pt has resumed PO intake. Sore throat -Chloraseptic spray -Improving. Depression Insomnia - Continue Trazodone 50 mg PO HS. Monitor for effect or over sedation. - Monitor for suicidal ideation. No suicidal ideation at this time. -Trazodone increased to 75 mg PO HS; improved sleep reported. Upper respiratory bacterial infection, acute on chronic: Likely colonization and source of active infection. - Sputum culture growing Pseudomonas aeruginosa and Group D Enterococcus on 05/30/17. - Levaquin course completed. Urinary tract infection, resolved. - Urine culture + Klebsiella pneumoniae and Enterococcus faecalis. - DCd ceftriaxone, course completed. Prolonged immobility: Continue PT. Request stretcher chair and possibility of tolerating daily during meals. -Pt to do exercises while in bed, 3-5 times/day per Physical Therapy Chronic pain: Continue Roxanol 5 mg PO q4h PRN per pain scale. Hypokalemia, resolved: Continue kcl eff 25 meq PO daily. GI prophylaxis: Prevacid DVT Prophylaxis: Heparin Case discussed with pt, RN, and Dr. Harman. Discharge Planning CM continues to work on placement. Pt under consideration by a facility. Kevyn Milan Jr. Jun 15, 2017 12:32
[2017-06-15] MEDS: cefTRIAXone INJ 1,000 MG in SODIUM CHLORIDE 0.9% INJ 100 ML IV SCH (13:11)
[2017-06-15] MEDS: traZODone HCL 50 MG TAB PO SCH (21:39)
[2017-06-15] MEDS: guaiFENesin E.R. 600 MG TAB PO SCH (21:41)
[2017-06-16] VITALS (11 sets, daily range): BP systolic 93–108; BP diastolic 55–60; PULSE 65–96; RESP 18–20; TEMP 97.4–98.4; O2SAT 96–99
[2017-06-16] MEDS: PHENAZOPYRIDINE HCL 100 MG TAB PO SCH ×3 (05:24→23:10)
[2017-06-16] MEDS: RESP: ALBUTEROL 2.5 MG/IPRATROPIUM 0.5 MG NEB (SCH) NEB ×3 (08:10→19:24)
[2017-06-16] MEDS: RESP: ACETYLCYSTEINE 10% 30 ML NEB NEB SCH ×3 (08:10→19:24)
[2017-06-16] MEDS: FUROSEMIDE 20 MG TAB PO SCH (10:09)
[2017-06-16] MEDS: LANSOPRAZOLE SOLUTAB 30 MG TAB NG SCH (10:09)
[2017-06-16] MEDS: LACTOBACILLUS ACIDOPHILUS TAB PO SCH ×3 (10:09→16:48)
[2017-06-16] MEDS: guaiFENesin E.R. 600 MG TAB PO SCH ×2 (10:09→23:10)
[2017-06-16] MEDS: FOLIC ACID 1 MG TAB PEG SCH (10:09)
[2017-06-16] MEDS: POTASSIUM CHLORIDE 25 MEQ EFFERVESCENT TAB NG SCH (10:09)
[2017-06-16] MEDS: levETIRAcetam 500 MG TAB PO SCH ×2 (10:09→23:10)
[2017-06-16] MEDS: HEPARIN SODIUM - SQ 10,000 UNITS/ML VIAL SQ SCH ×2 (10:10→23:11)
[2017-06-16] MEDS: CHLORHEXIDINE 0.12% (ORAL KIT) 15 ML CUP MT SCH ×2 (10:10→20:00)
[2017-06-16] MEDS: THIAMINE HCL 100 MG TAB PO SCH (10:10)
[2017-06-16] MEDS: MUPIROCIN 2% OINT 1 APPLIC/GM SYR EACH NARE SCH ×2 (10:10→23:10)
[2017-06-16] MEDS: ARTIFICIAL TEARS OPTH SOLN 15 ML BTL EACH EYE SCH ×3 (10:10→16:49)
[2017-06-16] MEDS: SODIUM HYPOCHLORITE 0.125% 500 ML BTL TOPICAL SCH (10:11)
[2017-06-16] MEDS: NYSTATIN 100,000 U/GM PWD 15 GM BTL TOPICAL SCH ×2 (10:11→21:00)
--- NOTE | 2017-06-16 11:55 | HHI.PR ---
Subjective Remarks Follow-up for hyponatremia, osmotic demyelination syndrome, debilitation Patient seen and examined. Lying in bed. Pt reported having "gotten sick" and "threw up once". Pt not feeling ill at this time. Pt continued to report mild discomfort associated with the PEG site. Pain reported to be 5/10. Requested liquid morphine be changed to pill due to "it tastes bad." Good sleep was reported. Pt reported secretions improved with change in medication. Pt denied fever, cough, shortness of breath,nausea or vomiting, bloody urine or stool. Pt continues to report "burning when I pee". Discomfort is reportedly "getting better." No other issues noted or reported. Afebrile. Blood pressure noted to be stable. Per RN (Dulce), no new issues/concerns developed over night or since start of shift. Objective Vitals Vital Signs Date Time Temp Pulse Resp B/P Pulse Ox O2 Delivery O2 Flow Rate FiO2 06/16/17 08:19 98 T-piece 28 06/16/17 08:00 97.9 69 20 106/55 98 06/16/17 05:39 Trach Collar 6.00 28 06/16/17 04:45 98.1 71 20 96/59 97 06/16/17 02:05 98.4 65 18 93/55 96 06/16/17 01:02 Trach Collar 6.00 06/15/17 22:10 Trach Collar 6.00 28 06/15/17 21:40 96 T-piece 06/15/17 21:32 98.5 75 20 110/63 97 06/15/17 19:57 84 06/15/17 16:00 97.8 70 20 94/56 98 06/15/17 12:00 98.1 78 20 97/56 98 I/O 06/15/17 06/15/17 06/15/17 06/16/17 06/16/17 06/16/17 07:00 15:00 23:00 07:00 15:00 23:00 Intake Total 2 ml Output Total 300 ml Balance 2 ml -300 ml IV Total 2 ml Output Urine Total 300 ml Result Diagram: 06/14/17 0644 06/14/1744 Objective Remarks GENERAL: Laying abed, in NAD. Pt speaking as t-tube is capped. PMV is out due to increased secretions. SKIN: Warm and dry. Scabs noted on left side of head, improving. Wound noted at base of tracheostomy where collar comes in contact with skin. HEAD: Normocephalic. EYES: No scleral icterus. No injection or drainage. NECK: Supple, trachea midline. No Lymphadenopathy. CARDIOVASCULAR: Regular rate and rhythm without murmurs, gallops, or rubs. RESPIRATORY: Breath sounds equal bilaterally.No rhonchi or wheezes noted. No accessory muscle use. GASTROINTESTINAL: Abdomen soft, nondistended. Pt reported pain/discomfort at site of former PEG tube upon palpation. MUSCULOSKELETAL: No cyanosis, or edema. Upper body strength is 4/5, lower body strength is 3/5. PSYCHOLOGICAL: A&O x3, no overt signs/symptoms of depression and/or anxiety.Speech is clear and fluent though quality is altered due to lack of PMV.. Procedures 03/02/2017 - arterial line and central line placement. 03/25/2017 - central line placement and intubation 06/06/17 -PEG tube replaced (Dr. Estevez). Medications and IVs Current Medications Medications (Trade) Dose Ordered Sig/Mae Route Start Time Stop Time Status Last Admin (Tears Naturale Opth Soln) 1 drop TID EACH EYE 03/20/17 09:00 06/16/17 10:10 (Zofran Inj) 4 mg Q6H PRN IV 03/20/17 07:30 06/08/17 12:10 (Senokot) 17.2 mg Q12H PRN PO 03/20/17 07:30 (Bactroban Nasal 2% Oint) Taper BID EACH NARE 03/20/17 09:00 03/16/18 08:59 06/16/17 10:10 (Lactinex) 1 tab TID PO 03/24/17 18:00 06/16/17 10:09 (NS Flush) UNSCH PRN IVF 03/25/17 10:15 06/11/17 21:30 (Peridex 0.12% Liq) 15 ml BID@08,20 MT 03/25/17 20:00 06/15/17 20:00 (Tylenol) 500 mg Q6H PRN PO 04/01/17 23:15 05/12/17 09:54 (Colace Liq) 100 mg Q12HR PO 04/03/17 21:00 Hold 04/13/17 11:42 (Mycostatin Powder) 1 applic Q12HR TOPICAL 04/03/17 21:00 06/16/17 10:11 (Vitamin B1) 100 mg DAILY PO 04/05/17 09:00 06/16/17 10:10 (Ativan Inj) 1 mg Q2H PRN IV PUSH 04/13/17 11:00 04/19/17 17:41 (Mag-Ox) 800 mg UNSCH PRN PO 04/14/17 18:00 (Prevacid Odt) 30 mg DAILY NG 04/27/17 09:00 06/16/17 10:09 (Keppra Liq) 1,000 mg Q12HR NG 04/27/17 21:00 Hold 05/31/17 08:59 (Heparin Inj) 5,000 units Q12HR SQ 04/27/17 21:00 06/16/17 10:10 (Dakin'S 0.125% Soln) 100 ml DAILY TOPICAL 05/02/17 12:00 06/16/17 10:11 (Lactulose Liq) 30 ml Q12H PRN PO 05/10/17 17:00 (Folate) 1 mg DAILY PEG 05/21/17 09:00 06/16/17 10:09 (Benadryl Liq) 12.5 mg Q4H PRN PO 05/27/17 19:15 05/31/17 18:43 (Benadryl Inj) 12.5 mg Q4H PRN IV 06/01/17 09:15 06/02/17 22:49 (Chloraseptic [place]) 2 spray Q2H PRN OROPHARYNG 06/02/17 10:45 06/11/17 12:23 (K-Lyte Cl Eff) 25 meq DAILY NG 06/06/17 12:45 06/16/17 10:09 (Lasix) 20 mg DAILY PO 06/07/17 09:00 06/16/17 10:09 (Keppra) 1,000 mg Q12HR PO 06/09/17 09:00 06/16/17 10:09 (Desyrel) 75 mg HS PO 06/11/17 21:00 06/15/17 21:39 Phenazopyridine HCl 100 mg 100 mg Q8HR PO 06/14/17 22:00 06/16/17 22:00 06/16/17 05:24 (Rocephin Inj/NS Inj) 100 ml @ 200 mls/hr Q24H IV 06/15/17 13:00 06/15/17 13:11 (Mucinex Er) 600 mg BID PO 06/15/17 21:00 06/16/17 10:09 (Msir) 15 mg Q4H PRN PO 06/16/17 08:45 Urinary Catheter: Yes Assessment to: Continue Johns insert reason: Prolonged Immobilization Date of Insertion: May 14, 2017 A/P Problem List: (1) Chronic hyponatremia ICD Code: E87.1 Status: Acute (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 Sandhu is a 61 year old male with a history of alcohol abuse, severe hypernatremia who presented to the ED on 03/02/2017 due to worsening fatigue, weakness that started 13 days prior to this hospitalization. He was found to have significant delirium. He admitted to drinking alcohol as well as taking xanax as well. ED work up indicated Na 99, Bilirubin 8.9, Lactate 9.8, Ammonia 60, CK 7000, troponin 4.9, Creatinine 1.5, bicarb 13. His WBC was 12, Platelets 112, INR 1.9. Meld score 26. He was severely hydrated. Patient was started on isotonic saline in an effort to improve hypovolemia. Patients sodium corrected too rapidly. Patient was treated for distributive shock, alcohol withdrawal and electrolyte imbalances in the ICU. Pulmonary (Dr. Kaba) saw pt, medication changes noted as Levsin discontinued and mucolytics and Mucinex added. Urine culture still pending, Rocephin ongoing. Pyridium to be continued for two days (through 06/18). Holding midnight vitals in order to facilitate sleep. Pain medication changed; DC Roxanol initiated Morphine IR 15 mg q 4 hrs. 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 Chronic severe hyponatremia Bilateral thalamic stroke Seizures - Continue Keppra 1000 mg PO every 12 hours. - Lorazepam 1 mg every 2 hours PO for seizures. Debility -PT/OT services to address pt's limitations. -Pt is dependent on many of his ADL's. -Pt is able to sit at side of bed unassisted, unable to stand or walk. Alcoholic liver disease Alcohol dependence Lower extremity thigh edema, improving - CT abdomen shows liver cirrhosis. - Continue folic acid and thiamine. - Furosemide 20 mg PO daily. - KCL eff 25 meq PO daily while on Lasix. - Monitor UO, electrolytes and intake closely while on diuretics. - PT and OT services continue, endurance is currently poor/highly limited. Dependent on assistance for many ADL's. Acute hypoxemic and hypercapnic respiratory failure - Status post tracheostomy on 04/16/2017. Pulmonology following. - Levsin available PRN for increased tracheal secretions. - Continue Duonebs scheduled. PEG site infection - PEG site culture growing pseudomonas and Group D Enterococcus on 06/01/17. Removed and status post replacement 06/06/17. - Speech following patient, tolerating PO intake. Recommendations for mechanical soft and thin liquids. Monitor PO intake closely. Monitor for aspiration. - Levaquin (started 06/01/17 - stopped 06/08/17) for infected PEG site. Pain at former PEG site is reported. -Peg site discomfort, Tylenol. -Consider d/c of tube feeding as pt has resumed PO intake. Sore throat -Chloraseptic spray -Improving. Depression Insomnia - Continue Trazodone 50 mg PO HS. Monitor for effect or over sedation. - Monitor for suicidal ideation. No suicidal ideation at this time. -Trazodone increased to 75 mg PO HS; improved sleep reported. Upper respiratory bacterial infection, acute on chronic: Likely colonization and source of active infection. - Sputum culture growing Pseudomonas aeruginosa and Group D Enterococcus on 05/30/17. - Levaquin course completed. Urinary tract infection, resolved. - Urine culture + Klebsiella pneumoniae and Enterococcus faecalis. - DCd ceftriaxone, course completed. Prolonged immobility: Continue PT. Request stretcher chair and possibility of tolerating daily during meals. -Pt to do exercises while in bed, 3-5 times/day per Physical Therapy Chronic pain: Continue Roxanol 5 mg PO q4h PRN per pain scale. Hypokalemia, resolved: Continue kcl eff 25 meq PO daily. GI prophylaxis: Prevacid DVT Prophylaxis: Heparin Case discussed with pt, RN, and Dr. Harman. Discharge Planning CM continues to work on placement. Pt under consideration by a facility. Kevyn Milan Jr. Jun 16, 2017 11:55
[2017-06-16] MEDS: MORPHINE SULFATE 15 MG TAB PO PRN ×2 (12:43→16:48)
[2017-06-16] MEDS: cefTRIAXone INJ 1,000 MG in SODIUM CHLORIDE 0.9% INJ 100 ML IV SCH (12:44)
[2017-06-16] MEDS: ONDANSETRON HCL 4 MG/2 ML VIAL IV PRN (18:09)
[2017-06-16] MEDS: SODIUM CHLORIDE 0.9% FLUSH 10 ML FLUSH IVF PRN (23:09)
[2017-06-16] MEDS: traZODone HCL 50 MG TAB PO SCH (23:10)
[2017-06-17] VITALS (10 sets, daily range): BP systolic 91–116; BP diastolic 51–64; PULSE 68–81; RESP 18; TEMP 97.7–98.5; O2SAT 93–100
[2017-06-17] MEDS: PHENAZOPYRIDINE HCL 100 MG TAB PO SCH ×3 (05:49→20:38)
[2017-06-17] MEDS: PHENOL 1.4% SOLN 180 ML BTL OROPHARYNG PRN (05:49)
[2017-06-17] MEDS: CHLORHEXIDINE 0.12% (ORAL KIT) 15 ML CUP MT SCH ×2 (08:00→20:00)
[2017-06-17] MEDS: RESP: ACETYLCYSTEINE 10% 30 ML NEB NEB SCH ×3 (08:42→21:30)
[2017-06-17] MEDS: RESP: ALBUTEROL 2.5 MG/IPRATROPIUM 0.5 MG NEB (SCH) NEB ×3 (08:42→21:30)
--- NOTE | 2017-06-17 10:37 | HHI.PR ---
Subjective Remarks Follow-up for hyponatremia, osmotic demyelination syndrome, debilitation. Patient seen and examined, lying in bed awake, in no apparent distress. Patient pleasant today, showing increasing motivation to continue PT, getting into stretcher chair and to get out of the hospital. Denies any new acute complaints overnight. Slept well. Pain well controlled. Afebrile. Denies any recent fever, chills, cough, shortness of breath, abdominal pain, n/v, diarrhea. Tolerating PO intake. Objective Vitals Vital Signs Date Time Temp Pulse Resp B/P Pulse Ox O2 Delivery O2 Flow Rate FiO2 06/17/17 08:45 99 T-piece 6.00 28 06/17/17 08:00 97.9 81 18 100/59 95 06/17/17 04:00 97.8 70 18 100/64 98 06/17/17 00:00 97.7 72 18 91/51 97 06/16/17 20:45 96 06/16/17 20:45 99 T-Piece 6.00 28 06/16/17 20:00 97.8 77 18 100/56 99 06/16/17 17:37 99 21 06/16/17 17:04 96 T-piece 28 06/16/17 16:00 97.6 73 20 107/60 96 06/16/17 12:00 97.4 71 20 108/58 98 I/O 06/16/17 06/16/17 06/16/17 06/17/17 06/17/17 06/17/17 07:00 15:00 23:00 07:00 15:00 23:00 Intake Total 480 ml 240 ml 0 ml Output Total 300 ml 1000 ml 1020 ml 0 ml Balance -300 ml -520 ml -780 ml 0 ml Intake Oral 480 ml 240 ml 0 ml Output Urine Total 300 ml 1000 ml 1020 ml 0 ml # Bowel Movements 2 Result Diagram: 06/14/17 0644 06/14/17 0644 Imaging Last Impressions Chest X-Ray 05/16/17 0000 Signed Impressions: Service Date/Time: May 12:56 - CONCLUSION: Improving lung aeration with decreasing air space disease. Persistent left basilar consolidation. Carlos Galindo MD Abdomen/Pelvis CT 05/08/17 0000 Signed Impressions: Service Date/Time: Monday, May 08, 2017 23:10 - CONCLUSION: Significant fluid throughout the abdomen and the pelvis with what appears to be a cirrhotic appearing liver and splenomegaly. There is significant small bowel wall thickening throughout the lower abdomen and the upper pelvis without evidence of obstruction Milo Muhammad MD Abdomen X-Ray 05/08/17 0000 Signed Impressions: Service Date/Time: Monday, May 08, 2017 15:30 - CONCLUSION: 1. There is diffuse, mild gaseous distention of the small bowel. No findings to indicate obstruction. Mihir Harry MD Liver Ultrasound 04/15/17 0000 Signed Impressions: Service Date/Time: Saturday, April 15, 2017 09:24 - CONCLUSION: 1. Abnormal appearance of the pancreas with a nonspecific hypoechoic area involving the posterior part of the pancreas along the head and body region. Recommend CT scan of the abdomen with oral and IV contrast further evaluation. 2. Fatty infiltration throughout the liver. 3. There is thickening of the gallbladder wall at 6 mm. This is suggestive of chronic gallbladder disease. 4. Small amount of free fluid adjacent to the liver and spleen in the upper abdomen.. 5. Right-sided pleural effusion. Víctor Rosas MD Head CT 04/12/17 0000 Signed Impressions: Service Date/Time: Wednesday, April 12, 2017 21:30 - CONCLUSION: Pontine encephalomalacia. Left mastoiditis. Casper Alva MD Head Magnetic Resonance Angiography 03/28/17 0000 Signed Impressions: Service Date/Time: March 17:22 - CONCLUSION: Unremarkable examination. Bety Castillo MD Brain MRI 03/28/17 0000 Signed Impressions: Service Date/Time: March 17:22 - CONCLUSION: 1. 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 Small subacute ischemic bilateral thalamic infarcts. 2. There has been no significant change when compared to the prior exam. Yinka Harman MD Lower Extremity Ultrasound 03/25/17 0000 Signed Impressions: Service Date/Time: Saturday, March 25, 2017 22:17 - CONCLUSION: No evidence of DVT. Víctor Rosas MD CT Angiography 03/21/17 0000 Signed Impressions: Service Date/Time: March 00:33 - CONCLUSION: No evidence of pulmonary embolism is identified. Mild atelectasis left lung base. Fluid or phlegm within the trachea. Milo Muhammad MD Abdomen Ultrasound 03/20/17 0000 Signed Impressions: Service Date/Time: Monday, March 20, 2017 11:38 - CONCLUSION: 1. Hepatosplenomegaly without focal lesion. 2. Probable sludge within the lumen of the gallbladder. No intrahepatic duct. Cheo Martínez MD Shoulder X-Ray 03/02/17 1404 Signed Impressions: Service Date/Time: Thursday, March 02, 2017 15:18 - CONCLUSION: No evidence of recent bony injury. Deformity of the lateral left clavicle suggests old healed trauma. Cheo Martínez MD Maxillofacial CT 03/02/17 1342 Signed Impressions: Service Date/Time: Thursday, March 02, 2017 14:52 - CONCLUSION: Negative CT of the facial bones. Cheo Martínez MD Chest CT 03/02/17 1342 Signed Impressions: Service Date/Time: Thursday, March 02, 2017 15:04 - CONCLUSION: 1. Abnormal appearance of the lateral left clavicle suggesting a combination of acute and chronic bony injury. Fracture lucencies without bridging callus is seen the region of the coracoid process. 2. The lungs are clear. No evidence of pneumothorax. 3. Moderate size hiatus hernia. Cheo Martínez MD Cervical Spine CT 03/02/17 1342 Signed Impressions: Service Date/Time: Thursday, March 02, 2017 14:52 - CONCLUSION: Negative CT cervical spine. Cheo Martínez MD Objective Remarks GENERAL: Well-nourished, well-developed male patient lying in bed in no apparent distress, trach in place, PMV on. Supplemental O2 2L NC. SKIN: Warm and dry. Trach site with dressing in place. No edema noted. HEENT: Normocephalic. No scleral icterus. No injection or drainage. NECK: Supple, trachea midline. No JVD. CARDIOVASCULAR: Regular rate and rhythm. No murmur appreciated. RESPIRATORY: Breath sounds equal bilaterally. Congestion to bilateral upper anterior lobes. Clear lung sounds in bilateral lower lobes throughout. No accessory muscle use. GASTROINTESTINAL: Abdomen soft,nondistended. PEG site, dressing in place, c/d/ i. EXTREMITIES: No cyanosis, or edema. NEUROLOGICAL: Awake, alert, and oriented x 3 Procedures 03/02/2017 - arterial line and central line placement. 03/25/2017 - central line placement and intubation 06/06/17 -PEG tube replaced (Dr. Estevez). 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 Sandhu is a 61 year old male with a history of alcohol abuse, severe hypernatremia who presented to the ED on 03/02/2017 due to worsening fatigue, weakness that started 13 days prior to this hospitalization. He was found to have significant delirium. He admitted to drinking alcohol as well as taking xanax as well. ED work up indicated Na 99, Bilirubin 8.9, Lactate 9.8, Ammonia 60, CK 7000, troponin 4.9, Creatinine 1.5, bicarb 13. His WBC was 12, Platelets 112, INR 1.9. Meld score 26. He was severely hydrated. Patient was started on isotonic saline in an effort to improve hypovolemia. Patients sodium corrected too rapidly. Patient was treated for distributive shock, alcohol withdrawal and electrolyte imbalances in the ICU. 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 Chronic severe hyponatremia Bilateral thalamic stroke Seizures - Continue Keppra 1000 mg PO every 12 hours. - Lorazepam 1 mg every 12 hours PO for seizures. Alcoholic liver disease Alcohol dependence Lower extremity thigh edema, improving - CT abdomen shows liver cirrhosis. - Continue folic acid and thiamine. - Furosemide 20 mg PO daily. - KCL eff 25 meq PO daily while on Lasix. - Monitor UO, electrolytes and intake closely while on diuretics. - PT and OT services continue, endurance is currently poor/highly limited. Acute hypoxemic and hypercapnic respiratory failure - Status post tracheostomy on 04/16/2017. - Pulmonary (Dr. Kaba) saw pt, Levsin discontinued and mucolytics and Mucinex added. - Continue Duonebs scheduled. PEG site infection, resolved. - PEG site culture growing pseudomonas and Group D Enterococcus on 06/01/17. Removed and status post replacement 06/06/17. - Speech following patient, tolerating PO intake. Recommendations for mechanical soft and thin liquids. Monitor PO intake closely. Monitor for aspiration. - Levaquin (started 06/01/17 - stopped 06/08/17) for infected PEG site. Depression Insomnia - Trazodone 75 mg PO HS; improved sleep reported. Monitor for over sedation. - Monitor for suicidal ideation. No suicidal ideation at this time. Upper respiratory bacterial infection, acute on chronic: Likely colonization and source of active infection. - Sputum culture growing Pseudomonas aeruginosa and Group D Enterococcus on 05/30/17. - Levaquin course completed. Urinary tract infection, reinfection. - Urine culture 06/15/17 growing gram negative lucius. Second round of Ceftriaxone IV continued (started 06/15/16 - ?). Pyridium to be continued for two days (through 06/18). - Urine culture + Klebsiella pneumoniae and Enterococcus faecalis on . Ceftriaxone given and course completed. Prolonged immobility: Continue PT. Continue stretcher chair. Chronic pain: Continue Morphine IR 15 mg q 4hrs. GI prophylaxis: Prevacid DVT Prophylaxis: Heparin Full code. Discharge Planning Last CM note: 06/13/17 Pt has been referred back to [facility] for possible admit, and Carina from [facility] still evaluating pt will visit pt today. Pt has [place] and recieves a monthly income of 730 dollars. Spoke with pt and informed him of the rehab search he is aware the payor source has minimum benefits. 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
[2017-06-17] MEDS: ARTIFICIAL TEARS OPTH SOLN 15 ML BTL EACH EYE SCH ×3 (11:32→17:13)
[2017-06-17] MEDS: POTASSIUM CHLORIDE 25 MEQ EFFERVESCENT TAB NG SCH (11:33)
[2017-06-17] MEDS: MUPIROCIN 2% OINT 1 APPLIC/GM SYR EACH NARE SCH ×2 (11:33→20:37)
[2017-06-17] MEDS: LANSOPRAZOLE SOLUTAB 30 MG TAB NG SCH (11:34)
[2017-06-17] MEDS: LACTOBACILLUS ACIDOPHILUS TAB PO SCH ×3 (11:34→17:13)
[2017-06-17] MEDS: FOLIC ACID 1 MG TAB PEG SCH (11:34)
[2017-06-17] MEDS: levETIRAcetam 500 MG TAB PO SCH ×2 (11:34→20:38)
[2017-06-17] MEDS: guaiFENesin E.R. 600 MG TAB PO SCH ×2 (11:35→20:37)
[2017-06-17] MEDS: FUROSEMIDE 20 MG TAB PO SCH (11:35)
[2017-06-17] MEDS: THIAMINE HCL 100 MG TAB PO SCH (11:35)
[2017-06-17] MEDS: HEPARIN SODIUM - SQ 10,000 UNITS/ML VIAL SQ SCH ×2 (11:35→20:38)
[2017-06-17] MEDS: NYSTATIN 100,000 U/GM PWD 15 GM BTL TOPICAL SCH ×2 (11:36→20:38)
[2017-06-17] MEDS: SODIUM HYPOCHLORITE 0.125% 500 ML BTL TOPICAL SCH (11:36)
[2017-06-17] MEDS: cefTRIAXone INJ 1,000 MG in SODIUM CHLORIDE 0.9% INJ 100 ML IV SCH (14:37)
[2017-06-17] MEDS: ONDANSETRON HCL 4 MG/2 ML VIAL IV PRN (17:42)
[2017-06-17] MEDS: traZODone HCL 50 MG TAB PO SCH (20:37)
[2017-06-17] MEDS: MORPHINE SULFATE 15 MG TAB PO PRN (20:43)
[2017-06-18] VITALS (8 sets, daily range): BP systolic 92–114; BP diastolic 55–73; PULSE 66–101; RESP 16–18; TEMP 97.6–98.8; O2SAT 93–99
[2017-06-18] MEDS: PHENAZOPYRIDINE HCL 100 MG TAB PO SCH ×3 (06:31→21:19)
[2017-06-18] MEDS: CHLORHEXIDINE 0.12% (ORAL KIT) 15 ML CUP MT SCH ×2 (08:00→20:00)
--- NOTE | 2017-06-18 09:29 | HHI.PR ---
Subjective Remarks Follow-up for hyponatremia, osmotic demyelination syndrome, debilitation. Patient seen and examined. Sleeping comfortably in bed. Awakens to voice. Denies any new acute events overnight. Denies any recent fever, chills, headache , shortness of breath, abdominal pain, n/v, diarrhea or dysuria. Patient has been coughing up rivera colored phlegm, tolerating PMV valve. TF on hold, patient tolerating PO intake. Objective Vitals Vital Signs Date Time Temp Pulse Resp B/P Pulse Ox O2 Delivery O2 Flow Rate FiO2 06/18/17 08:00 98.4 89 18 114/73 96 06/18/17 04:00 98.0 66 18 94/55 96 06/18/17 00:00 T-Piece 6.00 28 06/18/17 00:00 97.6 74 18 92/57 96 06/17/17 21:38 99 Nasal Cannula 3.00 06/17/17 20:45 74 06/17/17 20:00 98.1 80 18 105/62 93 06/17/17 18:52 68 06/17/17 16:00 98.5 80 18 107/64 95 06/17/17 12:00 97.9 79 18 116/61 100 I/O 06/17/17 06/17/17 06/17/17 06/18/17 06/18/17 06/18/17 07:00 15:00 23:00 07:00 15:00 23:00 Intake Total 0 ml 720 ml Output Total 0 ml 1300 ml 200 ml 100 ml Balance 0 ml -580 ml -200 ml -100 ml Intake Oral 0 ml 720 ml Output Urine Total 0 ml 1300 ml 200 ml 100 ml # Bowel Movements 0 0 0 Result Diagram: 06/14/17 0644 06/14/17 0644 Imaging Last Impressions Chest X-Ray 05/16/17 0000 Signed Impressions: Service Date/Time: May 12:56 - CONCLUSION: Improving lung aeration with decreasing air space disease. Persistent left basilar consolidation. Carlos Galindo MD Abdomen/Pelvis CT 05/08/17 0000 Signed Impressions: Service Date/Time: Monday, May 08, 2017 23:10 - CONCLUSION: Significant fluid throughout the abdomen and the pelvis with what appears to be a cirrhotic appearing liver and splenomegaly. There is significant small bowel wall thickening throughout the lower abdomen and the upper pelvis without evidence of obstruction Milo Muhammad MD Abdomen X-Ray 05/08/17 0000 Signed Impressions: Service Date/Time: Monday, May 08, 2017 15:30 - CONCLUSION: 1. There is diffuse, mild gaseous distention of the small bowel. No findings to indicate obstruction. Mihir Harry MD Liver Ultrasound 04/15/17 0000 Signed Impressions: Service Date/Time: Saturday, April 15, 2017 09:24 - CONCLUSION: 1. Abnormal appearance of the pancreas with a nonspecific hypoechoic area involving the posterior part of the pancreas along the head and body region. Recommend CT scan of the abdomen with oral and IV contrast further evaluation. 2. Fatty infiltration throughout the liver. 3. There is thickening of the gallbladder wall at 6 mm. This is suggestive of chronic gallbladder disease. 4. Small amount of free fluid adjacent to the liver and spleen in the upper abdomen.. 5. Right-sided pleural effusion. Víctor Rosas MD Head CT 04/12/17 0000 Signed Impressions: Service Date/Time: Wednesday, April 12, 2017 21:30 - CONCLUSION: Pontine encephalomalacia. Left mastoiditis. Casper Alva MD Head Magnetic Resonance Angiography 03/28/17 0000 Signed Impressions: Service Date/Time: March 17:22 - CONCLUSION: Unremarkable examination. Bety Castillo MD Brain MRI 03/28/17 0000 Signed Impressions: Service Date/Time: March 17:22 - CONCLUSION: 1. 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 Small subacute ischemic bilateral thalamic infarcts. 2. There has been no significant change when compared to the prior exam. Yinka Harman MD Lower Extremity Ultrasound 03/25/17 0000 Signed Impressions: Service Date/Time: Saturday, March 25, 2017 22:17 - CONCLUSION: No evidence of DVT. Víctor Rosas MD CT Angiography 03/21/17 0000 Signed Impressions: Service Date/Time: March 00:33 - CONCLUSION: No evidence of pulmonary embolism is identified. Mild atelectasis left lung base. Fluid or phlegm within the trachea. Milo Muhammad MD Abdomen Ultrasound 03/20/17 0000 Signed Impressions: Service Date/Time: Monday, March 20, 2017 11:38 - CONCLUSION: 1. Hepatosplenomegaly without focal lesion. 2. Probable sludge within the lumen of the gallbladder. No intrahepatic duct. Cheo Martínez MD Shoulder X-Ray 03/02/17 1404 Signed Impressions: Service Date/Time: Thursday, March 02, 2017 15:18 - CONCLUSION: No evidence of recent bony injury. Deformity of the lateral left clavicle suggests old healed trauma. Cheo Martínez MD Maxillofacial CT 03/02/17 1342 Signed Impressions: Service Date/Time: Thursday, March 02, 2017 14:52 - CONCLUSION: Negative CT of the facial bones. Cheo Martínez MD Chest CT 03/02/17 1342 Signed Impressions: Service Date/Time: Thursday, March 02, 2017 15:04 - CONCLUSION: 1. Abnormal appearance of the lateral left clavicle suggesting a combination of acute and chronic bony injury. Fracture lucencies without bridging callus is seen the region of the coracoid process. 2. The lungs are clear. No evidence of pneumothorax. 3. Moderate size hiatus hernia. Cheo Martínez MD Cervical Spine CT 03/02/17 1342 Signed Impressions: Service Date/Time: Thursday, March 02, 2017 14:52 - CONCLUSION: Negative CT cervical spine. Cheo Martínez MD Objective Remarks GENERAL: Well-nourished, well-developed male patient lying in bed in no apparent distress, trach in place, PMV in place. SKIN: Warm and dry. Trach site with dressing in place, c/d. No edema noted. HEENT: Normocephalic. No scleral icterus. No injection or drainage. NECK: Supple, trachea midline. No JVD. CARDIOVASCULAR: Regular rate and rhythm. No murmur appreciated. RESPIRATORY: Breath sounds equal bilaterally. Congestion to bilateral upper anterior lobes. Clear lung sounds in bilateral lower lobes throughout. No accessory muscle use. GASTROINTESTINAL: Abdomen soft,nondistended. PEG site, dressing in place, c/d/ i. TF on hold. EXTREMITIES: No cyanosis, or edema. NEUROLOGICAL: Awake, alert, and oriented x 3 Procedures 03/02/2017 - arterial line and central line placement. 03/25/2017 - central line placement and intubation 06/06/17 -PEG tube replaced (Dr. Estevez). 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 Sandhu is a 61 year old male with a history of alcohol abuse, severe hypernatremia who presented to the ED on 03/02/2017 due to worsening fatigue, weakness that started 13 days prior to this hospitalization. He was found to have significant delirium. He admitted to drinking alcohol as well as taking xanax as well. ED work up indicated Na 99, Bilirubin 8.9, Lactate 9.8, Ammonia 60, CK 7000, troponin 4.9, Creatinine 1.5, bicarb 13. His WBC was 12, Platelets 112, INR 1.9. Meld score 26. He was severely hydrated. Patient was started on isotonic saline in an effort to improve hypovolemia. Patients sodium corrected too rapidly. Patient was treated for distributive shock, alcohol withdrawal and electrolyte imbalances in the ICU. 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 Chronic severe hyponatremia Bilateral thalamic stroke Seizures - Continue Keppra 1000 mg PO every 12 hours. - Lorazepam 1 mg every 12 hours PO for seizures. Alcoholic liver disease Alcohol dependence Lower extremity thigh edema, improving - CT abdomen shows liver cirrhosis. - Continue folic acid and thiamine. - Furosemide 20 mg PO daily. - KCL eff 25 meq PO daily while on Lasix. - Monitor UO, electrolytes and intake closely while on diuretics. - PT and OT services continue, endurance is currently poor/highly limited. Acute hypoxemic and hypercapnic respiratory failure - Pulmonology following. - Status post tracheostomy on 04/16/2017. On PMV valve. - Continue Mucolytics and Mucinex. - Continue Duonebs scheduled. Depression Insomnia - Trazodone 75 mg PO HS; improved sleep reported. Monitor for over sedation. - Monitor for suicidal ideation. No suicidal ideation at this time. Upper respiratory bacterial infection, acute on chronic: Likely colonization and source of active infection. - Sputum culture growing Pseudomonas aeruginosa and Group D Enterococcus on 05/30/17. - Levaquin course completed. Urinary tract infection, reinfection. - Urine culture + Klebsiella pneumoniae and Enterococcus faecalis on . Ceftriaxone given and course completed. - Urine culture 06/15/17 growing Acinetobacter Baumannii/Haemol. Ceftriaxone IV dc'd due to sensitivity. Patient asymptomatic at this time, denies dysuria or burning, afebrile, WBC WNL. Will re-culture urine. Follow clinically. Pyridium to be continued for two days (through 06/18). Prolonged immobility: Continue PT. Continue stretcher chair. Chronic pain: Continue Morphine IR 15 mg q 4hrs. PEG site infection, resolved. - PEG site culture growing pseudomonas and Group D Enterococcus on 06/01/17. Removed and status post replacement 06/06/17. - Speech following patient, tolerating PO intake. Recommendations for mechanical soft and thin liquids. Monitor PO intake closely. Monitor for aspiration. - Levaquin (started 06/01/17 - stopped 06/08/17) for infected PEG site. GI prophylaxis: Prevacid DVT Prophylaxis: Heparin Full code. Discharge Planning Last CM note: 06/13/17 Pt has been referred back to [facility] for possible admit, and Carina from [facility] still evaluating pt will visit pt today. Pt has [employer] Medicaid and recieves a monthly income of 730 dollars. Spoke with pt and informed him of the rehab search he is aware the payor source has minimum benefits. Pt informed lead burner that his dtr is suppose to get out Oct or Nov. Contacts: Guillermo pt friend ([phone]),Pt dtr is customer contact specialist Amie [facility][phone][facility] booking number #[phone] pt states dtr will be released in Oct or Nov, also brother Humberto Edson ([phone]) Nayeli Devlin Jun 18, 2017 09:28
[2017-06-18] MEDS: RESP: ALBUTEROL 2.5 MG/IPRATROPIUM 0.5 MG NEB (SCH) NEB ×3 (09:30→20:11)
[2017-06-18] MEDS: RESP: ACETYLCYSTEINE 10% 30 ML NEB NEB SCH ×3 (09:30→20:11)
[2017-06-18] MEDS: ARTIFICIAL TEARS OPTH SOLN 15 ML BTL EACH EYE SCH ×3 (09:58→18:00)
[2017-06-18] MEDS: MUPIROCIN 2% OINT 1 APPLIC/GM SYR EACH NARE SCH ×2 (09:58→21:00)
[2017-06-18] MEDS: guaiFENesin E.R. 600 MG TAB PO SCH ×2 (09:59→21:16)
[2017-06-18] MEDS: FUROSEMIDE 20 MG TAB PO SCH (09:59)
[2017-06-18] MEDS: LANSOPRAZOLE SOLUTAB 30 MG TAB NG SCH (09:59)
[2017-06-18] MEDS: POTASSIUM CHLORIDE 25 MEQ EFFERVESCENT TAB NG SCH (09:59)
[2017-06-18] MEDS: THIAMINE HCL 100 MG TAB PO SCH (09:59)
[2017-06-18] MEDS: LACTOBACILLUS ACIDOPHILUS TAB PO SCH ×3 (10:01→18:00)
[2017-06-18] MEDS: levETIRAcetam 500 MG TAB PO SCH ×2 (10:01→21:00)
[2017-06-18] MEDS: HEPARIN SODIUM - SQ 10,000 UNITS/ML VIAL SQ SCH ×2 (10:01→21:00)
[2017-06-18] MEDS: FOLIC ACID 1 MG TAB PEG SCH (10:01)
[2017-06-18] MEDS: NYSTATIN 100,000 U/GM PWD 15 GM BTL TOPICAL SCH ×2 (10:02→21:00)
[2017-06-18] MEDS: SODIUM HYPOCHLORITE 0.125% 500 ML BTL TOPICAL SCH (10:02)
[2017-06-18] MEDS: traZODone HCL 50 MG TAB PO SCH (21:00)
[2017-06-18] MEDS: MORPHINE SULFATE 15 MG TAB PO PRN (21:16)
[2017-06-19] VITALS (10 sets, daily range): BP systolic 94–109; BP diastolic 56–64; PULSE 70–99; RESP 16–20; TEMP 97.9–98.6; O2SAT 95–97
[2017-06-19] MEDS: CHLORHEXIDINE 0.12% (ORAL KIT) 15 ML CUP MT SCH ×2 (08:00→20:00)
--- NOTE | 2017-06-19 08:14 | HHI.PR ---
Subjective Remarks Follow-up for hyponatremia, osmotic demyelination syndrome, debilitation. Patient seen and examined. Lying in bed on bed blackwell attempting to void, saying it is "very hard to go and hurts". On t-collar. Increased secretions noted. States he overall feels under the weather today. Afebrile. VSS. Eating well. States he was able to stand by edge of bed with PT this am. Objective Vitals Vital Signs Date Time Temp Pulse Resp B/P Pulse Ox O2 Delivery O2 Flow Rate FiO2 06/19/17 04:00 98.6 73 17 94/56 97 06/19/17 00:00 98.2 89 18 97/61 97 06/18/17 20:11 95 Trach Collar 06/18/17 20:00 98.3 101 16 104/58 99 06/18/17 20:00 Room Air T-Piece 06/18/17 20:00 94 06/18/17 16:00 98.8 88 18 111/68 97 06/18/17 12:00 98.4 83 18 95/55 94 06/18/17 12:00 68 06/18/17 09:31 93 I/O 06/18/17 06/18/17 06/18/17 06/19/17 06/19/17 06/19/17 07:00 15:00 23:00 07:00 15:00 23:00 Intake Total 720 ml 180 ml 0 ml Output Total 100 ml 600 ml 400 ml 100 ml Balance -100 ml 120 ml -220 ml -100 ml Intake Oral 720 ml 180 ml 0 ml Output Urine Total 100 ml 600 ml 400 ml 100 ml # Bowel Movements 0 0 0 0 Imaging Last Impressions Chest X-Ray 05/16/17 0000 Signed Impressions: Service Date/Time: May 12:56 - CONCLUSION: Improving lung aeration with decreasing air space disease. Persistent left basilar consolidation. Carlos Galindo MD Abdomen/Pelvis CT 05/08/17 0000 Signed Impressions: Service Date/Time: Monday, May 08, 2017 23:10 - CONCLUSION: Significant fluid throughout the abdomen and the pelvis with what appears to be a cirrhotic appearing liver and splenomegaly. There is significant small bowel wall thickening throughout the lower abdomen and the upper pelvis without evidence of obstruction Milo Muhammad MD Abdomen X-Ray 05/08/17 0000 Signed Impressions: Service Date/Time: Monday, May 08, 2017 15:30 - CONCLUSION: 1. There is diffuse, mild gaseous distention of the small bowel. No findings to indicate obstruction. Mihir Harry MD Liver Ultrasound 04/15/17 0000 Signed Impressions: Service Date/Time: Saturday, April 15, 2017 09:24 - CONCLUSION: 1. Abnormal appearance of the pancreas with a nonspecific hypoechoic area involving the posterior part of the pancreas along the head and body region. Recommend CT scan of the abdomen with oral and IV contrast further evaluation. 2. Fatty infiltration throughout the liver. 3. There is thickening of the gallbladder wall at 6 mm. This is suggestive of chronic gallbladder disease. 4. Small amount of free fluid adjacent to the liver and spleen in the upper abdomen.. 5. Right-sided pleural effusion. Víctor Rosas MD Head CT 04/12/17 0000 Signed Impressions: Service Date/Time: Wednesday, April 12, 2017 21:30 - CONCLUSION: Pontine encephalomalacia. Left mastoiditis. Casper Alva MD Head Magnetic Resonance Angiography 03/28/17 0000 Signed Impressions: Service Date/Time: March 17:22 - CONCLUSION: Unremarkable examination. K. Bijan Castillo MD Brain MRI 03/28/17 0000 Signed Impressions: Service Date/Time: March 17:22 - CONCLUSION: 1. 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 Small subacute ischemic bilateral thalamic infarcts. 2. There has been no significant change when compared to the prior exam. Yinka Harman MD Lower Extremity Ultrasound 03/25/17 0000 Signed Impressions: Service Date/Time: Saturday, March 25, 2017 22:17 - CONCLUSION: No evidence of DVT. Víctor Rosas MD CT Angiography 03/21/17 0000 Signed Impressions: Service Date/Time: March 00:33 - CONCLUSION: No evidence of pulmonary embolism is identified. Mild atelectasis left lung base. Fluid or phlegm within the trachea. Milo Muhammad MD Abdomen Ultrasound 03/20/17 0000 Signed Impressions: Service Date/Time: Monday, March 20, 2017 11:38 - CONCLUSION: 1. Hepatosplenomegaly without focal lesion. 2. Probable sludge within the lumen of the gallbladder. No intrahepatic duct. Cheo Martínez MD Shoulder X-Ray 03/02/17 1404 Signed Impressions: Service Date/Time: Thursday, March 02, 2017 15:18 - CONCLUSION: No evidence of recent bony injury. Deformity of the lateral left clavicle suggests old healed trauma. Cheo Martínez MD Maxillofacial CT 03/02/17 1342 Signed Impressions: Service Date/Time: Thursday, March 02, 2017 14:52 - CONCLUSION: Negative CT of the facial bones. Cheo Martínez MD Chest CT 03/02/17 1342 Signed Impressions: Service Date/Time: Thursday, March 02, 2017 15:04 - CONCLUSION: 1. Abnormal appearance of the lateral left clavicle suggesting a combination of acute and chronic bony injury. Fracture lucencies without bridging callus is seen the region of the coracoid process. 2. The lungs are clear. No evidence of pneumothorax. 3. Moderate size hiatus hernia. Cheo Martínez MD Cervical Spine CT 03/02/17 1342 Signed Impressions: Service Date/Time: Thursday, March 02, 2017 14:52 - CONCLUSION: Negative CT cervical spine. Cheo Martínez MD Objective Remarks GENERAL: Well-nourished, well-developed male patient lying in bed in no apparent distress, t-collar in place. SKIN: Warm and dry. Trach site with dressing in place, c/d. No edema noted. HEENT: Normocephalic. No scleral icterus. No injection or drainage. NECK: Supple, trachea midline. No JVD. CARDIOVASCULAR: Regular rate and rhythm. No murmur appreciated. RESPIRATORY: Breath sounds equal bilaterally. Congestion throughout. No accessory muscle use. GASTROINTESTINAL: Abdomen soft,nondistended. PEG site, dressing in place, c/d/ i. EXTREMITIES: No cyanosis, or edema. NEUROLOGICAL: Awake, alert, and oriented x 3 Procedures 03/02/2017 - arterial line and central line placement. 03/25/2017 - central line placement and intubation 06/06/17 -PEG tube replaced (Dr. Estevez). 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 Sandhu is a 61 year old male with a history of alcohol abuse, severe hypernatremia who presented to the ED on 03/02/2017 due to worsening fatigue, weakness that started 13 days prior to this hospitalization. He was found to have significant delirium. He admitted to drinking alcohol as well as taking xanax as well. ED work up indicated Na 99, Bilirubin 8.9, Lactate 9.8, Ammonia 60, CK 7000, troponin 4.9, Creatinine 1.5, bicarb 13. His WBC was 12, Platelets 112, INR 1.9. Meld score 26. He was severely hydrated. Patient was started on isotonic saline in an effort to improve hypovolemia. Patients sodium corrected too rapidly. Patient was treated for distributive shock, alcohol withdrawal and electrolyte imbalances in the ICU. 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 Chronic severe hyponatremia Bilateral thalamic stroke Seizures - Continue Keppra 1000 mg PO every 12 hours. - Lorazepam 1 mg every 12 hours PO for seizures. Alcoholic liver disease Alcohol dependence Lower extremity thigh edema, improving - CT abdomen shows liver cirrhosis. - Continue folic acid and thiamine. - Furosemide 20 mg PO daily. - KCL eff 25 meq PO daily while on Lasix. - Monitor UO, electrolytes and intake closely while on diuretics. - PT and OT services continue, endurance is currently poor/highly limited. Acute hypoxemic and hypercapnic respiratory failure - Pulmonology following. - Status post tracheostomy on 04/16/2017. Encourage use of PMV as tolerated. - Continue Mucolytics and Mucinex. - Continue Duonebs scheduled. Depression Insomnia - Trazodone 75 mg PO HS; improved sleep reported. Monitor for over sedation. - Monitor for suicidal ideation. No suicidal ideation at this time. Upper respiratory bacterial infection, acute on chronic: Likely colonization and source of active infection. - Sputum culture growing Pseudomonas aeruginosa and Group D Enterococcus on 05/30/17. - Levaquin course completed. Urinary tract infection, reinfection. - Urine culture + Klebsiella pneumoniae and Enterococcus faecalis on . Ceftriaxone given and course completed. - Urine culture 06/15/17 growing Acinetobacter Baumannii/Haemol. Ceftriaxone IV dc'd due to sensitivity. Patient asymptomatic at this time, denies dysuria or burning, afebrile, WBC WNL. Will re-culture urine. Follow clinically. Pyridium course completed. Prolonged immobility: Continue PT. Continue stretcher chair. Chronic pain: Continue Morphine IR 15 mg q 4hrs. PEG site infection, resolved. - PEG site culture growing pseudomonas and Group D Enterococcus on 06/01/17. Removed and status post replacement 06/06/17. - Speech following patient, tolerating PO intake. Recommendations for mechanical soft and thin liquids. Monitor PO intake closely. Monitor for aspiration. - Levaquin (started 06/01/17 - stopped 06/08/17) for infected PEG site. GI prophylaxis: Prevacid DVT Prophylaxis: Heparin Full code. Discharge Planning Last CM note: 06/18/17 Rec'd call from Vannesa mcintyre [facility] and she is verifying pt benefits and she will visit pt to evaluate for possible placement at facility. Contacts: Guillermo pt friend ([phone]),Pt dtr is supervisor contact and service clerks Amie Sandhu who is presently in the [facility] ([phone]) booking number #[phone] pt states dtr will be released in Oct or Nov, also brother Humberto Edson ([phone]) Nayeli Devlin Jun 19, 2017 08:14
[2017-06-19] MEDS: MUPIROCIN 2% OINT 1 APPLIC/GM SYR EACH NARE SCH ×2 (08:47→21:07)
[2017-06-19] MEDS: LACTOBACILLUS ACIDOPHILUS TAB PO SCH ×3 (08:53→17:26)
[2017-06-19] MEDS: LANSOPRAZOLE SOLUTAB 30 MG TAB NG SCH (08:53)
[2017-06-19] MEDS: POTASSIUM CHLORIDE 25 MEQ EFFERVESCENT TAB NG SCH (08:53)
[2017-06-19] MEDS: levETIRAcetam 500 MG TAB PO SCH ×2 (08:53→21:07)
[2017-06-19] MEDS: FOLIC ACID 1 MG TAB PEG SCH (08:53)
[2017-06-19] MEDS: HEPARIN SODIUM - SQ 10,000 UNITS/ML VIAL SQ SCH ×2 (08:53→21:07)
[2017-06-19] MEDS: THIAMINE HCL 100 MG TAB PO SCH (08:53)
[2017-06-19] MEDS: guaiFENesin E.R. 600 MG TAB PO SCH ×2 (08:53→21:06)
[2017-06-19] MEDS: ARTIFICIAL TEARS OPTH SOLN 15 ML BTL EACH EYE SCH ×3 (08:54→17:26)
[2017-06-19] MEDS: FUROSEMIDE 20 MG TAB PO SCH (08:54)
[2017-06-19] MEDS: SODIUM HYPOCHLORITE 0.125% 500 ML BTL TOPICAL SCH (08:55)
[2017-06-19] MEDS: NYSTATIN 100,000 U/GM PWD 15 GM BTL TOPICAL SCH ×2 (08:55→21:00)
[2017-06-19] MEDS: RESP: ALBUTEROL 2.5 MG/IPRATROPIUM 0.5 MG NEB (SCH) NEB ×3 (09:13→19:17)
[2017-06-19] MEDS: RESP: ACETYLCYSTEINE 10% 30 ML NEB NEB SCH ×3 (09:13→19:17)
[2017-06-19] MEDS: ONDANSETRON HCL 4 MG/2 ML VIAL IV PRN (11:49)
[2017-06-19] MEDS: PHENOL 1.4% SOLN 180 ML BTL OROPHARYNG PRN (16:14)
[2017-06-19] MEDS: traZODone HCL 50 MG TAB PO SCH (21:06)
[2017-06-19] MEDS: SODIUM CHLORIDE 0.9% FLUSH 10 ML FLUSH IVF PRN (21:07)
[2017-06-19] MEDS: MORPHINE SULFATE 15 MG TAB PO PRN (21:07)
[2017-06-20] VITALS (8 sets, daily range): BP systolic 96–112; BP diastolic 55–71; PULSE 83–97; RESP 16–20; TEMP 97.9–99.3; O2SAT 97–99
[2017-06-20 06:22] LABS: AUTOMATED NEUTROPHIL # 9.8 TH/MM3 (1.8-7.7); BASOPHIL # 0.1 TH/MM3 (0-0.2); BASOPHIL % 0.8 % (0.0-2.0); EOSINOPHIL # 0.1 TH/MM3 (0-0.4); EOSINOPHIL % 0.8 % (0.0-4.0); HEMATOCRIT 28.1 % (39.0-51.0); HEMO FLAGS DIFF FINAL; LYMPH % 12.9 % (9.0-44.0); LYMPHOCYTE # 1.6 TH/MM3 (1.0-4.8); MEAN CELL VOLUME 94.9 FL (80.0-100.0); MEAN CORPUSCULAR HEMOGLOBIN 32.8 PG (27.0-34.0); MEAN CORPUSCULAR HGB CONC 34.6 % (32.0-36.0); MONO % 6.3 % (0.0-8.0); NEUT % 79.2 % (16.0-70.0); PLATELET COUNT 106 TH/MM3 (150-450); RED BLOOD COUNT 2.96 MIL/MM3 (4.50-5.90); RED CELL DISTRIBUTION WIDTH 13.4 % (11.6-17.2); WHITE BLOOD COUNT 12.4 TH/MM3 (4.0-11.0)
[2017-06-20 06:40] LABS: BICARBONATE 27.1 MEQ/L (21.0-32.0)
[2017-06-20] MEDS: CHLORHEXIDINE 0.12% (ORAL KIT) 15 ML CUP MT SCH ×2 (08:00→20:00)
[2017-06-20] MEDS ORDERED: AMPICILLIN-SULBACTAM INJ 3 GM VIAL IM SCH (08:00)
[2017-06-20] MEDS: MUPIROCIN 2% OINT 1 APPLIC/GM SYR EACH NARE SCH ×2 (09:00→21:00)
[2017-06-20] MEDS: NYSTATIN 100,000 U/GM PWD 15 GM BTL TOPICAL SCH ×2 (09:00→21:00)
[2017-06-20] MEDS: SODIUM HYPOCHLORITE 0.125% 500 ML BTL TOPICAL SCH (09:00)
[2017-06-20] MEDS: AMPICILLIN-SULBACTAM INJ 3 GM in SODIUM CHLORIDE 0.9% INJ 100 ML IV SCH ×3 (10:10→21:07)
[2017-06-20] MEDS: levETIRAcetam 500 MG TAB PO SCH ×2 (10:11→21:07)
[2017-06-20] MEDS: LANSOPRAZOLE SOLUTAB 30 MG TAB NG SCH (10:11)
[2017-06-20] MEDS: guaiFENesin E.R. 600 MG TAB PO SCH ×2 (10:11→21:07)
[2017-06-20] MEDS: DOCUSATE SODIUM 50 MG/SENNA 8.6 MG TAB PO SCH (10:11)
[2017-06-20] MEDS: THIAMINE HCL 100 MG TAB PO SCH (10:11)
[2017-06-20] MEDS: LACTOBACILLUS ACIDOPHILUS TAB PO SCH ×3 (10:11→17:14)
[2017-06-20] MEDS: ARTIFICIAL TEARS OPTH SOLN 15 ML BTL EACH EYE SCH ×3 (10:12→17:15)
[2017-06-20] MEDS: HEPARIN SODIUM - SQ 10,000 UNITS/ML VIAL SQ SCH ×2 (10:12→21:00)
[2017-06-20] MEDS: FOLIC ACID 1 MG TAB PEG SCH (10:12)
[2017-06-20] MEDS: FUROSEMIDE 20 MG TAB PO SCH (10:12)
[2017-06-20] MEDS: POTASSIUM CHLORIDE 25 MEQ EFFERVESCENT TAB NG SCH (10:13)
[2017-06-20] MEDS ORDERED: LACTULOSE SYRUP 20 GM/30 ML CUP PO ONE (13:45)
--- NOTE | 2017-06-20 13:50 | HHI.PR ---
Subjective Remarks Follow-up for hyponatremia, osmotic demyelination syndrome, debilitation. Patient seen and examined. Positive BM but still complaining of difficulty defecating. Tolerating PO intake. TF off. Denies any new acute events overnight. TMAX overnight 99.3. Objective Vitals Vital Signs Date Time Temp Pulse Resp B/P Pulse Ox O2 Delivery O2 Flow Rate FiO2 06/20/17 12:00 97.9 88 18 112/71 97 06/20/17 08:00 98.9 90 16 105/56 98 06/20/17 04:44 98.5 91 18 107/63 97 06/20/17 00:35 99.3 97 20 103/61 97 06/19/17 20:14 89 06/19/17 20:00 98.6 96 20 109/64 97 06/19/17 20:00 Trach Collar 6.00 28 06/19/17 19:17 96 Trach Collar 6.00 28 06/19/17 16:00 98.4 99 18 102/56 96 I/O 06/19/17 06/19/17 06/19/17 06/20/17 06/20/17 06/20/17 07:00 15:00 23:00 07:00 15:00 23:00 Intake Total 0 ml 364 ml 0 ml 682 ml Output Total 100 ml 400 ml 500 ml 420 ml Balance -100 ml -36 ml -500 ml 262 ml Intake Oral 0 ml 360 ml 0 ml IV Total 4 ml Tube Feeding 632 ml Other 50 ml Output Urine Total 100 ml 400 ml 500 ml 420 ml # Bowel Movements 0 2 0 Result Diagram: 06/20/17 0359 06/20/17 0359 Imaging Last Impressions Chest X-Ray 05/16/17 0000 Signed Impressions: Service Date/Time: May 12:56 - CONCLUSION: Improving lung aeration with decreasing air space disease. Persistent left basilar consolidation. Carlos Galindo MD Abdomen/Pelvis CT 05/08/17 0000 Signed Impressions: Service Date/Time: Monday, May 08, 2017 23:10 - CONCLUSION: Significant fluid throughout the abdomen and the pelvis with what appears to be a cirrhotic appearing liver and splenomegaly. There is significant small bowel wall thickening throughout the lower abdomen and the upper pelvis without evidence of obstruction Milo Muhammad MD Abdomen X-Ray 05/08/17 0000 Signed Impressions: Service Date/Time: Monday, May 08, 2017 15:30 - CONCLUSION: 1. There is diffuse, mild gaseous distention of the small bowel. No findings to indicate obstruction. Mihir Harry MD Liver Ultrasound 04/15/17 0000 Signed Impressions: Service Date/Time: Saturday, April 15, 2017 09:24 - CONCLUSION: 1. Abnormal appearance of the pancreas with a nonspecific hypoechoic area involving the posterior part of the pancreas along the head and body region. Recommend CT scan of the abdomen with oral and IV contrast further evaluation. 2. Fatty infiltration throughout the liver. 3. There is thickening of the gallbladder wall at 6 mm. This is suggestive of chronic gallbladder disease. 4. Small amount of free fluid adjacent to the liver and spleen in the upper abdomen.. 5. Right-sided pleural effusion. Víctor Rosas MD Head CT 04/12/17 0000 Signed Impressions: Service Date/Time: Wednesday, April 12, 2017 21:30 - CONCLUSION: Pontine encephalomalacia. Left mastoiditis. Casper Alva MD Head Magnetic Resonance Angiography 03/28/17 0000 Signed Impressions: Service Date/Time: March 17:22 - CONCLUSION: Unremarkable examination. K. Bijan Castillo MD Brain MRI 03/28/17 0000 Signed Impressions: Service Date/Time: March 17:22 - CONCLUSION: 1. 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 Small subacute ischemic bilateral thalamic infarcts. 2. There has been no significant change when compared to the prior exam. Yinka Harman MD Lower Extremity Ultrasound 03/25/17 0000 Signed Impressions: Service Date/Time: Saturday, March 25, 2017 22:17 - CONCLUSION: No evidence of DVT. Víctor Rosas MD CT Angiography 03/21/17 0000 Signed Impressions: Service Date/Time: March 00:33 - CONCLUSION: No evidence of pulmonary embolism is identified. Mild atelectasis left lung base. Fluid or phlegm within the trachea. Milo Muhammad MD Abdomen Ultrasound 03/20/17 0000 Signed Impressions: Service Date/Time: Monday, March 20, 2017 11:38 - CONCLUSION: 1. Hepatosplenomegaly without focal lesion. 2. Probable sludge within the lumen of the gallbladder. No intrahepatic duct. Cheo Martínez MD Shoulder X-Ray 03/02/17 1404 Signed Impressions: Service Date/Time: Thursday, March 02, 2017 15:18 - CONCLUSION: No evidence of recent bony injury. Deformity of the lateral left clavicle suggests old healed trauma. Cheo Martínez MD Maxillofacial CT 03/02/17 1342 Signed Impressions: Service Date/Time: Thursday, March 02, 2017 14:52 - CONCLUSION: Negative CT of the facial bones. Cheo Martínez MD Chest CT 03/02/17 1342 Signed Impressions: Service Date/Time: Thursday, March 02, 2017 15:04 - CONCLUSION: 1. Abnormal appearance of the lateral left clavicle suggesting a combination of acute and chronic bony injury. Fracture lucencies without bridging callus is seen the region of the coracoid process. 2. The lungs are clear. No evidence of pneumothorax. 3. Moderate size hiatus hernia. Cheo Martínez MD Cervical Spine CT 03/02/17 1342 Signed Impressions: Service Date/Time: Thursday, March 02, 2017 14:52 - CONCLUSION: Negative CT cervical spine. Cheo Martínez MD Objective Remarks GENERAL: Well-nourished, well-developed male patient lying in bed in no apparent distress, t-collar in place. SKIN: Warm and dry. Trach site with dressing in place, c/d. No edema noted. HEENT: Normocephalic. No scleral icterus. No injection or drainage. NECK: Supple, trachea midline. No JVD. CARDIOVASCULAR: Regular rate and rhythm. No murmur appreciated. RESPIRATORY: Breath sounds equal bilaterally. Congestion throughout. No accessory muscle use. GASTROINTESTINAL: Abdomen soft,nondistended. PEG site, dressing in place, c/d/ i. EXTREMITIES: No cyanosis, or edema. NEUROLOGICAL: Awake, alert, and oriented x 3 Procedures 03/02/2017 - arterial line and central line placement. 03/25/2017 - central line placement and intubation 06/06/17 -PEG tube replaced (Dr. Estevez). 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 Sandhu is a 61 year old male with a history of alcohol abuse, severe hypernatremia who presented to the ED on 03/02/2017 due to worsening fatigue, weakness that started 13 days prior to this hospitalization. He was found to have significant delirium. He admitted to drinking alcohol as well as taking xanax as well. ED work up indicated Na 99, Bilirubin 8.9, Lactate 9.8, Ammonia 60, CK 7000, troponin 4.9, Creatinine 1.5, bicarb 13. His WBC was 12, Platelets 112, INR 1.9. Meld score 26. He was severely hydrated. Patient was started on isotonic saline in an effort to improve hypovolemia. Patients sodium corrected too rapidly. Patient was treated for distributive shock, alcohol withdrawal and electrolyte imbalances in the ICU. 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 Chronic severe hyponatremia Bilateral thalamic stroke Seizures - Continue Keppra 1000 mg PO every 12 hours. - Lorazepam 1 mg every 12 hours PO for seizures. Constipation - Positive BM documented, but patient still complaint of difficulty defecating and straining. - Lactulose x 1 dose now. Continue scheduled Adele-colace. - Follow clinically. Alcoholic liver disease Alcohol dependence Lower extremity thigh edema, improving - CT abdomen shows liver cirrhosis. - Continue folic acid and thiamine. - Furosemide 20 mg PO daily. - KCL eff 25 meq PO daily while on Lasix. - Monitor UO, electrolytes and intake closely while on diuretics. - PT and OT services continue, endurance is currently poor/highly limited. Acute hypoxemic and hypercapnic respiratory failure - Pulmonology following. - Status post tracheostomy on 04/16/2017. Encourage use of PMV as tolerated. - Continue Mucolytics and Mucinex. - Continue Duonebs scheduled. Depression Insomnia - Trazodone 75 mg PO HS; improved sleep reported. Monitor for over sedation. - Monitor for suicidal ideation. No suicidal ideation at this time. Upper respiratory bacterial infection, acute on chronic: Likely colonization and source of active infection. - Sputum culture growing Pseudomonas aeruginosa and Group D Enterococcus on 05/30/17. - Levaquin course completed. Urinary tract infection, reinfection. - Urine culture + Klebsiella pneumoniae and Enterococcus faecalis on . Ceftriaxone given and course completed. - Urine culture 06/15/17 growing Acinetobacter Baumannii/Haemol. Repeat urine culture ordered and pending. CBC reviewed today, WBC increased to 12.4. Afebrile. Started Unasyn 3 g IV q6h. Prolonged immobility: Continue PT. Continue stretcher chair. Chronic pain: Continue Morphine IR 15 mg q 4hrs. PEG site infection, resolved. - PEG site culture growing pseudomonas and Group D Enterococcus on 06/01/17. Removed and status post replacement 06/06/17. - Speech following patient, tolerating PO intake. Recommendations for mechanical soft and thin liquids. Monitor PO intake closely. Monitor for aspiration. - Levaquin (started 06/01/17 - stopped 06/08/17) for infected PEG site. GI prophylaxis: Prevacid DVT Prophylaxis: Heparin Full code. Discharge Planning Last CM note: 06/18/17 Rec'd call from Vannesa shook [place] and she is verifying pt benefits and she will visit pt to evaluate for possible placement at facility. 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
[2017-06-20] MEDS: RESP: ALBUTEROL 2.5 MG/3 ML NEB (PRN) INH (20:12)
[2017-06-20] MEDS: MORPHINE SULFATE 15 MG TAB PO PRN (21:07)
[2017-06-20] MEDS: traZODone HCL 50 MG TAB PO SCH (21:07)
[2017-06-21] VITALS (8 sets, daily range): BP systolic 98–112; BP diastolic 53–63; PULSE 71–84; RESP 18–22; TEMP 97.8–98.6; O2SAT 94–100
[2017-06-21] MEDS: AMPICILLIN-SULBACTAM INJ 3 GM in SODIUM CHLORIDE 0.9% INJ 100 ML IV SCH ×4 (05:24→22:19)
[2017-06-21] MEDS: CHLORHEXIDINE 0.12% (ORAL KIT) 15 ML CUP MT SCH ×2 (08:00→20:00)
[2017-06-21] MEDS: LACTOBACILLUS ACIDOPHILUS TAB PO SCH ×3 (09:00→17:32)
[2017-06-21] MEDS: MUPIROCIN 2% OINT 1 APPLIC/GM SYR EACH NARE SCH ×2 (09:00→21:00)
[2017-06-21] MEDS: NYSTATIN 100,000 U/GM PWD 15 GM BTL TOPICAL SCH ×2 (09:00→22:18)
[2017-06-21] MEDS: SODIUM HYPOCHLORITE 0.125% 500 ML BTL TOPICAL SCH (09:00)
[2017-06-21] MEDS: LANSOPRAZOLE SOLUTAB 30 MG TAB NG SCH (09:54)
[2017-06-21] MEDS: HEPARIN SODIUM - SQ 10,000 UNITS/ML VIAL SQ SCH ×2 (09:54→22:18)
[2017-06-21] MEDS: POTASSIUM CHLORIDE 25 MEQ EFFERVESCENT TAB NG SCH (09:54)
[2017-06-21] MEDS: THIAMINE HCL 100 MG TAB PO SCH (09:55)
[2017-06-21] MEDS: FUROSEMIDE 20 MG TAB PO SCH (09:55)
[2017-06-21] MEDS: guaiFENesin E.R. 600 MG TAB PO SCH ×2 (09:55→22:18)
[2017-06-21] MEDS: FOLIC ACID 1 MG TAB PEG SCH (09:55)
[2017-06-21] MEDS: levETIRAcetam 500 MG TAB PO SCH ×2 (09:55→22:18)
[2017-06-21] MEDS: DOCUSATE SODIUM 50 MG/SENNA 8.6 MG TAB PO SCH (09:56)
[2017-06-21] MEDS: ARTIFICIAL TEARS OPTH SOLN 15 ML BTL EACH EYE SCH ×3 (09:56→17:32)
[2017-06-21] MEDS: PHENOL 1.4% SOLN 180 ML BTL OROPHARYNG PRN (09:57)
[2017-06-21 10:00] LABS: AUTOMATED NEUTROPHIL # 5.8 TH/MM3 (1.8-7.7); BASOPHIL % 0.6 % (0.0-2.0); EOSINOPHIL # 0.1 TH/MM3 (0-0.4); EOSINOPHIL % 1.5 % (0.0-4.0); HEMO FLAGS DIFF FINAL; LYMPH % 14.6 % (9.0-44.0); LYMPHOCYTE # 1.1 TH/MM3 (1.0-4.8); MEAN CELL VOLUME 95.1 FL (80.0-100.0); MEAN CORPUSCULAR HEMOGLOBIN 32.8 PG (27.0-34.0); MEAN CORPUSCULAR HGB CONC 34.5 % (32.0-36.0); MONO % 6.8 % (0.0-8.0); NEUT % 76.5 % (16.0-70.0); PLATELET COUNT 107 TH/MM3 (150-450); RED BLOOD COUNT 3.15 MIL/MM3 (4.50-5.90); RED CELL DISTRIBUTION WIDTH 13.4 % (11.6-17.2); WHITE BLOOD COUNT 7.6 TH/MM3 (4.0-11.0)
[2017-06-21] MEDS: MORPHINE SULFATE 15 MG TAB PO PRN ×3 (12:49→22:20)
--- NOTE | 2017-06-21 13:33 | HHI.PR ---
Subjective Remarks Follow-up for hyponatremia, osmotic demyelination syndrome, debilitation. Patient seen and examined. Awake and alert. Patient states he is feeling much better since starting the antibiotics started. Tolerating PO intake, TF still on hold. Denies any new acute complaints overnight. Pain well controlled. Denies any recent fever, chills, cough, abdominal pain, n/v, diarrhea, or dysuria. Patient states it has been much easier to defecate after Lactulose. Objective Vitals Vital Signs Date Time Temp Pulse Resp B/P Pulse Ox O2 Delivery O2 Flow Rate FiO2 06/21/17 12:00 97.8 74 18 108/60 100 06/21/17 08:00 98.0 76 20 108/63 100 06/21/17 04:00 98.0 73 22 101/60 98 06/21/17 00:00 98.6 84 22 98/54 94 06/20/17 21:27 Trach Collar 6.00 28 06/20/17 20:23 84 06/20/17 20:13 97 Trach Collar 28 06/20/17 20:00 99.1 83 17 96/55 99 06/20/17 16:00 98.5 87 18 110/70 99 I/O 06/20/17 06/20/17 06/20/17 06/21/17 06/21/17 06/21/17 07:00 15:00 23:00 07:00 15:00 23:00 Intake Total 682 ml 360 ml 340 ml 725 ml Output Total 420 ml 1200 ml 200 ml Balance 262 ml -840 ml 340 ml 525 ml Intake Oral 360 ml 240 ml IV Total 100 ml 100 ml Tube Feeding 632 ml 625 ml Other 50 ml Output Urine Total 420 ml 1200 ml 200 ml # Bowel Movements 0 1 2 0 Result Diagram: 06/21/17 0933 06/20/17 0359 Imaging Last Impressions Chest X-Ray 05/16/17 0000 Signed Impressions: Service Date/Time: May 12:56 - CONCLUSION: Improving lung aeration with decreasing air space disease. Persistent left basilar consolidation. Carlos Galindo MD Abdomen/Pelvis CT 05/08/17 0000 Signed Impressions: Service Date/Time: Monday, May 08, 2017 23:10 - CONCLUSION: Significant fluid throughout the abdomen and the pelvis with what appears to be a cirrhotic appearing liver and splenomegaly. There is significant small bowel wall thickening throughout the lower abdomen and the upper pelvis without evidence of obstruction Milo Muhammad MD Abdomen X-Ray 05/08/17 0000 Signed Impressions: Service Date/Time: Monday, May 08, 2017 15:30 - CONCLUSION: 1. There is diffuse, mild gaseous distention of the small bowel. No findings to indicate obstruction. Mihir Harry MD Liver Ultrasound 04/15/17 0000 Signed Impressions: Service Date/Time: Saturday, April 15, 2017 09:24 - CONCLUSION: 1. Abnormal appearance of the pancreas with a nonspecific hypoechoic area involving the posterior part of the pancreas along the head and body region. Recommend CT scan of the abdomen with oral and IV contrast further evaluation. 2. Fatty infiltration throughout the liver. 3. There is thickening of the gallbladder wall at 6 mm. This is suggestive of chronic gallbladder disease. 4. Small amount of free fluid adjacent to the liver and spleen in the upper abdomen.. 5. Right-sided pleural effusion. Víctor Rosas MD Head CT 04/12/17 0000 Signed Impressions: Service Date/Time: Wednesday, April 12, 2017 21:30 - CONCLUSION: Pontine encephalomalacia. Left mastoiditis. Casper Alva MD Head Magnetic Resonance Angiography 03/28/17 0000 Signed Impressions: Service Date/Time: March 17:22 - CONCLUSION: Unremarkable examination. Bety Castillo MD Brain MRI 03/28/17 0000 Signed Impressions: Service Date/Time: March 17:22 - CONCLUSION: 1. 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 Small subacute ischemic bilateral thalamic infarcts. 2. There has been no significant change when compared to the prior exam. Yinka Harman MD Lower Extremity Ultrasound 03/25/17 0000 Signed Impressions: Service Date/Time: Saturday, March 25, 2017 22:17 - CONCLUSION: No evidence of DVT. Víctor Rosas MD CT Angiography 03/21/17 0000 Signed Impressions: Service Date/Time: March 00:33 - CONCLUSION: No evidence of pulmonary embolism is identified. Mild atelectasis left lung base. Fluid or phlegm within the trachea. Milo Muhammad MD Abdomen Ultrasound 03/20/17 0000 Signed Impressions: Service Date/Time: Monday, March 20, 2017 11:38 - CONCLUSION: 1. Hepatosplenomegaly without focal lesion. 2. Probable sludge within the lumen of the gallbladder. No intrahepatic duct. Cheo Martínez MD Shoulder X-Ray 03/02/17 1404 Signed Impressions: Service Date/Time: Thursday, March 02, 2017 15:18 - CONCLUSION: No evidence of recent bony injury. Deformity of the lateral left clavicle suggests old healed trauma. Cheo Martínez MD Maxillofacial CT 03/02/17 1342 Signed Impressions: Service Date/Time: Thursday, March 02, 2017 14:52 - CONCLUSION: Negative CT of the facial bones. Cheo Martínez MD Chest CT 03/02/17 1342 Signed Impressions: Service Date/Time: Thursday, March 02, 2017 15:04 - CONCLUSION: 1. Abnormal appearance of the lateral left clavicle suggesting a combination of acute and chronic bony injury. Fracture lucencies without bridging callus is seen the region of the coracoid process. 2. The lungs are clear. No evidence of pneumothorax. 3. Moderate size hiatus hernia. Cheo Martínez MD Cervical Spine CT 03/02/17 1342 Signed Impressions: Service Date/Time: Thursday, March 02, 2017 14:52 - CONCLUSION: Negative CT cervical spine. Cheo Martínez MD Objective Remarks GENERAL: Well-nourished, well-developed male patient lying in bed in no apparent distress, PMV in place. SKIN: Warm and dry. Trach site with dressing in place, c/d. No edema noted. HEENT: Normocephalic. No scleral icterus. No injection or drainage. NECK: Supple, trachea midline. No JVD. CARDIOVASCULAR: Regular rate and rhythm. No murmur appreciated. RESPIRATORY: Breath sounds equal bilaterally. Congestion throughout. No accessory muscle use. GASTROINTESTINAL: Abdomen soft,nondistended. PEG site, dressing in place, c/d/ i. EXTREMITIES: No cyanosis, or edema. NEUROLOGICAL: Awake, alert, and oriented x 3 Procedures 03/02/2017 - arterial line and central line placement. 03/25/2017 - central line placement and intubation 06/06/17 -PEG tube replaced (Dr. Estevez). 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 Sandhu is a 61 year old male with a history of alcohol abuse, severe hypernatremia who presented to the ED on 03/02/2017 due to worsening fatigue, weakness that started 13 days prior to this hospitalization. He was found to have significant delirium. He admitted to drinking alcohol as well as taking xanax as well. ED work up indicated Na 99, Bilirubin 8.9, Lactate 9.8, Ammonia 60, CK 7000, troponin 4.9, Creatinine 1.5, bicarb 13. His WBC was 12, Platelets 112, INR 1.9. Meld score 26. He was severely hydrated. Patient was started on isotonic saline in an effort to improve hypovolemia. Patients sodium corrected too rapidly. Patient was treated for distributive shock, alcohol withdrawal and electrolyte imbalances in the ICU. 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 Chronic severe hyponatremia Bilateral thalamic stroke Seizures - Continue Keppra 1000 mg PO every 12 hours. - Lorazepam 1 mg every 12 hours PO for seizures. Constipation. resolved - Continue scheduled Adele-colace. - Follow clinically. Alcoholic liver disease Alcohol dependence Lower extremity thigh edema, improving - CT abdomen shows liver cirrhosis. - Continue folic acid and thiamine. - Furosemide 20 mg PO daily. - KCL eff 25 meq PO daily while on Lasix. - Monitor UO, electrolytes and intake closely while on diuretics. - PT and OT services continue, endurance is currently poor/highly limited. Acute hypoxemic and hypercapnic respiratory failure - Pulmonology following. - Status post tracheostomy on 04/16/2017. Encourage use of PMV as tolerated. - Continue Mucolytics and Mucinex. - Continue Duonebs scheduled. Depression Insomnia - Trazodone 75 mg PO HS; improved sleep reported. Monitor for over sedation. - Monitor for suicidal ideation. No suicidal ideation at this time. Upper respiratory bacterial infection, acute on chronic: Likely colonization and source of active infection. - Sputum culture growing Pseudomonas aeruginosa and Group D Enterococcus on 05/30/17. - Levaquin course completed. Urinary tract infection, reinfection. - Urine culture + Klebsiella pneumoniae and Enterococcus faecalis on . Ceftriaxone given and course completed. - Urine culture 06/15/17 growing Acinetobacter Baumannii/Haemol. Repeat urine culture ordered and pending. CBC reviewed today, WBC increased to 12.4. Afebrile. Continue Unasyn 3 g IV q6h. Prolonged immobility: Continue PT. Continue stretcher chair. Chronic pain: Continue Morphine IR 15 mg q 4hrs. PEG site infection, resolved. - PEG site culture growing pseudomonas and Group D Enterococcus on 06/01/17. Removed and status post replacement 06/06/17. - Speech following patient, tolerating PO intake. Recommendations for mechanical soft and thin liquids. Monitor PO intake closely. Monitor for aspiration. - Levaquin (started 06/01/17 - stopped 06/08/17) for infected PEG site. GI prophylaxis: Prevacid DVT Prophylaxis: Heparin Full code. Discharge Planning Last CM note: 06/21/17 Miguel Angel is still following this pt. Pt friend Guillermo has been contacted and will be locating pt bank statements to provide to Miguel Angel. Vannesa has spoken to pt and he is agreeable with going to facility but at this time isolation is in question. Nayeli Devlin Jun 21, 2017 13:33
[2017-06-21] MEDS: traZODone HCL 50 MG TAB PO SCH (22:18)
[2017-06-22] VITALS (9 sets, daily range): BP systolic 104–120; BP diastolic 56–70; PULSE 71–93; RESP 19–22; TEMP 97.5–98.8; O2SAT 95–100
[2017-06-22] MEDS: PHENOL 1.4% SOLN 180 ML BTL OROPHARYNG PRN (05:01)
[2017-06-22] MEDS: AMPICILLIN-SULBACTAM INJ 3 GM in SODIUM CHLORIDE 0.9% INJ 100 ML IV SCH ×4 (05:18→20:47)
[2017-06-22] MEDS: CHLORHEXIDINE 0.12% (ORAL KIT) 15 ML CUP MT SCH ×2 (08:00→20:47)
[2017-06-22] MEDS: ARTIFICIAL TEARS OPTH SOLN 15 ML BTL EACH EYE SCH ×3 (10:31→17:16)
[2017-06-22] MEDS: POTASSIUM CHLORIDE 25 MEQ EFFERVESCENT TAB NG SCH (10:31)
[2017-06-22] MEDS: MUPIROCIN 2% OINT 1 APPLIC/GM SYR EACH NARE SCH ×2 (10:31→20:47)
[2017-06-22] MEDS: levETIRAcetam 500 MG TAB PO SCH ×2 (10:32→20:45)
[2017-06-22] MEDS: LACTOBACILLUS ACIDOPHILUS TAB PO SCH ×3 (10:32→17:16)
[2017-06-22] MEDS: LANSOPRAZOLE SOLUTAB 30 MG TAB NG SCH (10:32)
[2017-06-22] MEDS: FOLIC ACID 1 MG TAB PEG SCH (10:32)
[2017-06-22] MEDS: THIAMINE HCL 100 MG TAB PO SCH (10:33)
[2017-06-22] MEDS: SODIUM HYPOCHLORITE 0.125% 500 ML BTL TOPICAL SCH (10:33)
[2017-06-22] MEDS: DOCUSATE SODIUM 50 MG/SENNA 8.6 MG TAB PO SCH (10:33)
[2017-06-22] MEDS: HEPARIN SODIUM - SQ 10,000 UNITS/ML VIAL SQ SCH ×2 (10:33→20:45)
[2017-06-22] MEDS: guaiFENesin E.R. 600 MG TAB PO SCH ×2 (10:33→20:46)
[2017-06-22] MEDS: FUROSEMIDE 20 MG TAB PO SCH (10:33)
[2017-06-22] MEDS: NYSTATIN 100,000 U/GM PWD 15 GM BTL TOPICAL SCH ×2 (10:34→20:48)
--- NOTE | 2017-06-22 15:46 | HHI.PR ---
Subjective Remarks Follow-up for hyponatremia, osmotic demyelination syndrome, debilitation. Patient seen and examined, lying in bed comfortably. Denies any new acute complaints overnight. Patient trach capped today. Diminished secretions. Eating well. Positive BM. Objective Vitals Vital Signs Date Time Temp Pulse Resp B/P Pulse Ox O2 Delivery O2 Flow Rate FiO2 06/22/17 12:06 98.8 86 20 104/56 100 06/22/17 09:40 97 Nasal Cannula 2.00 06/22/17 08:08 98.3 88 20 110/69 100 06/22/17 04:48 97.6 74 22 114/66 100 06/22/17 00:29 97.5 71 22 118/68 100 06/21/17 20:00 Trach Collar 6.00 28 06/21/17 20:00 98.3 76 20 98/53 100 06/21/17 17:56 97 Nasal Cannula 2.00 06/21/17 16:00 98.4 71 18 112/63 97 I/O 06/21/17 06/21/17 06/21/17 06/22/17 06/22/17 06/22/17 06:59 14:59 22:59 06:59 14:59 22:59 Intake Total 725 ml 1080 ml 0 ml Output Total 200 ml 500 ml 200 ml Balance 525 ml 580 ml -200 ml Intake Oral 1080 ml 0 ml IV Total 100 ml Tube Feeding 625 ml Output Urine Total 200 ml 500 ml 200 ml # Bowel Movements 0 2 0 Result Diagram: 06/21/17 0933 06/20/17 0359 Imaging Last Impressions Chest X-Ray 05/16/17 0000 Signed Impressions: Service Date/Time: May 12:56 - CONCLUSION: Improving lung aeration with decreasing air space disease. Persistent left basilar consolidation. Carlos Galindo MD Abdomen/Pelvis CT 05/08/17 0000 Signed Impressions: Service Date/Time: Monday, May 08, 2017 23:10 - CONCLUSION: Significant fluid throughout the abdomen and the pelvis with what appears to be a cirrhotic appearing liver and splenomegaly. There is significant small bowel wall thickening throughout the lower abdomen and the upper pelvis without evidence of obstruction Milo Muhammad MD Abdomen X-Ray 05/08/17 0000 Signed Impressions: Service Date/Time: Monday, May 08, 2017 15:30 - CONCLUSION: 1. There is diffuse, mild gaseous distention of the small bowel. No findings to indicate obstruction. Mihir Harry MD Liver Ultrasound 04/15/17 0000 Signed Impressions: Service Date/Time: Saturday, April 15, 2017 09:24 - CONCLUSION: 1. Abnormal appearance of the pancreas with a nonspecific hypoechoic area involving the posterior part of the pancreas along the head and body region. Recommend CT scan of the abdomen with oral and IV contrast further evaluation. 2. Fatty infiltration throughout the liver. 3. There is thickening of the gallbladder wall at 6 mm. This is suggestive of chronic gallbladder disease. 4. Small amount of free fluid adjacent to the liver and spleen in the upper abdomen.. 5. Right-sided pleural effusion. Víctor Rosas MD Head CT 04/12/17 0000 Signed Impressions: Service Date/Time: Wednesday, April 12, 2017 21:30 - CONCLUSION: Pontine encephalomalacia. Left mastoiditis. Casper Alva MD Head Magnetic Resonance Angiography 03/28/17 0000 Signed Impressions: Service Date/Time: March 17:22 - CONCLUSION: Unremarkable examination. Bety Castillo MD Brain MRI 03/28/17 0000 Signed Impressions: Service Date/Time: March 17:22 - CONCLUSION: 1. 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 Small subacute ischemic bilateral thalamic infarcts. 2. There has been no significant change when compared to the prior exam. Yinka Harman MD Lower Extremity Ultrasound 03/25/17 0000 Signed Impressions: Service Date/Time: Saturday, March 25, 2017 22:17 - CONCLUSION: No evidence of DVT. Víctor Rosas MD CT Angiography 03/21/17 0000 Signed Impressions: Service Date/Time: March 00:33 - CONCLUSION: No evidence of pulmonary embolism is identified. Mild atelectasis left lung base. Fluid or phlegm within the trachea. Milo Muhammad MD Abdomen Ultrasound 03/20/17 0000 Signed Impressions: Service Date/Time: Monday, March 20, 2017 11:38 - CONCLUSION: 1. Hepatosplenomegaly without focal lesion. 2. Probable sludge within the lumen of the gallbladder. No intrahepatic duct. Cheo Martínez MD Shoulder X-Ray 03/02/17 1404 Signed Impressions: Service Date/Time: Thursday, March 02, 2017 15:18 - CONCLUSION: No evidence of recent bony injury. Deformity of the lateral left clavicle suggests old healed trauma. Cheo Martínez MD Maxillofacial CT 03/02/17 1342 Signed Impressions: Service Date/Time: Thursday, March 02, 2017 14:52 - CONCLUSION: Negative CT of the facial bones. Cheo Martínez MD Chest CT 03/02/17 1342 Signed Impressions: Service Date/Time: Thursday, March 02, 2017 15:04 - CONCLUSION: 1. Abnormal appearance of the lateral left clavicle suggesting a combination of acute and chronic bony injury. Fracture lucencies without bridging callus is seen the region of the coracoid process. 2. The lungs are clear. No evidence of pneumothorax. 3. Moderate size hiatus hernia. Cheo Martínez MD Cervical Spine CT 03/02/17 1342 Signed Impressions: Service Date/Time: Thursday, March 02, 2017 14:52 - CONCLUSION: Negative CT cervical spine. Cheo Martínez MD Objective Remarks GENERAL: Well-nourished, well-developed male patient lying in bed in no apparent distress, trach capped. SKIN: Warm and dry. Trach site with dressing in place, c/d. No edema noted. HEENT: Normocephalic. No scleral icterus. No injection or drainage. NECK: Supple, trachea midline. No JVD. CARDIOVASCULAR: Regular rate and rhythm. No murmur appreciated. RESPIRATORY: Breath sounds equal bilaterally. Distant breath sounds. No accessory muscle use. GASTROINTESTINAL: Abdomen soft,nondistended. PEG site, dressing in place, c/d/ i. TF off. EXTREMITIES: No cyanosis, or edema. NEUROLOGICAL: Awake, alert, and oriented x 3 Procedures 03/02/2017 - arterial line and central line placement. 03/25/2017 - central line placement and intubation 06/06/17 -PEG tube replaced (Dr. Estevez). 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 Sandhu is a 61 year old male with a history of alcohol abuse, severe hypernatremia who presented to the ED on 03/02/2017 due to worsening fatigue, weakness that started 13 days prior to this hospitalization. He was found to have significant delirium. He admitted to drinking alcohol as well as taking xanax as well. ED work up indicated Na 99, Bilirubin 8.9, Lactate 9.8, Ammonia 60, CK 7000, troponin 4.9, Creatinine 1.5, bicarb 13. His WBC was 12, Platelets 112, INR 1.9. Meld score 26. He was severely hydrated. Patient was started on isotonic saline in an effort to improve hypovolemia. Patients sodium corrected too rapidly. Patient was treated for distributive shock, alcohol withdrawal and electrolyte imbalances in the ICU. 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 Chronic severe hyponatremia Bilateral thalamic stroke Seizures - Continue Keppra 1000 mg PO every 12 hours. - Lorazepam 1 mg every 12 hours PO for seizures. Constipation. resolved - Continue scheduled Adele-colace. - Follow clinically. Alcoholic liver disease Alcohol dependence Lower extremity thigh edema, improving - CT abdomen shows liver cirrhosis. - Continue folic acid and thiamine. - Furosemide 20 mg PO daily. - KCL eff 25 meq PO daily while on Lasix. - Monitor UO, electrolytes and intake closely while on diuretics. - PT and OT services continue, endurance is currently poor/highly limited. Acute hypoxemic and hypercapnic respiratory failure - Pulmonology following. - Status post tracheostomy on 04/16/2017. Encourage use of PMV as tolerated. - Continue Mucolytics and Mucinex. - Continue Duonebs scheduled. Depression Insomnia - Trazodone 75 mg PO HS; improved sleep reported. Monitor for over sedation. - Monitor for suicidal ideation. No suicidal ideation at this time. Upper respiratory bacterial infection, acute on chronic: Likely colonization and source of active infection. - Sputum culture growing Pseudomonas aeruginosa and Group D Enterococcus on 05/30/17. - Levaquin course completed. Urinary tract infection, reinfection. - Urine culture + Klebsiella pneumoniae and Enterococcus faecalis on . Ceftriaxone given and course completed. - Urine culture 06/15/17 growing Acinetobacter Baumannii/Haemol. Repeat urine culture ordered and pending. CBC reviewed today, WBC increased to 12.4. Afebrile. Continue Unasyn 3 g IV q6h (Start 06/20- end 07/04). Prolonged immobility: Continue PT. Continue stretcher chair. Chronic pain: Continue Morphine IR 15 mg q 4hrs. PEG site infection, resolved. - PEG site culture growing pseudomonas and Group D Enterococcus on 06/01/17. Removed and status post replacement 06/06/17. - Speech following patient, tolerating PO intake. Recommendations for mechanical soft and thin liquids. Monitor PO intake closely. Monitor for aspiration. - Levaquin (started 06/01/17 - stopped 06/08/17) for infected PEG site. GI prophylaxis: Prevacid DVT Prophylaxis: Heparin Full code. Discharge Planning Last CM note: 06/21/17 Miguel Angel is still following this pt. Pt friend Guillermo has been contacted and will be locating pt bank statements to provide to Miguel Angel. Vannesa has spoken to pt and he is agreeable with going to facility but at this time isolation is in question. Nayeli Devlin Jun 22, 2017 15:46
[2017-06-22] MEDS: MORPHINE SULFATE 15 MG TAB PO PRN (20:46)
[2017-06-22] MEDS: traZODone HCL 50 MG TAB PO SCH (20:46)
[2017-06-23] VITALS (8 sets, daily range): BP systolic 98–127; BP diastolic 55–70; PULSE 66–97; RESP 18–20; TEMP 98.1–100.4; O2SAT 96–99
[2017-06-23] MEDS: AMPICILLIN-SULBACTAM INJ 3 GM in SODIUM CHLORIDE 0.9% INJ 100 ML IV SCH ×4 (04:29→21:53)
[2017-06-23] MEDS: CHLORHEXIDINE 0.12% (ORAL KIT) 15 ML CUP MT SCH ×2 (08:00→20:12)
--- NOTE | 2017-06-23 08:59 | HHI.PR ---
Subjective Remarks Follow-up for hyponatremia, osmotic demyelination syndrome, debilitation. Patient seen and examined. Awake and alert. Tolerating PO intake. Denies any new acute complaints overnight. Pain well controlled. Trach capped for most of the day yesterday. Secretions diminished. Denies any recent fever, chills, cough , abdominal pain, n/v, diarrhea, or dysuria. Objective Vitals Vital Signs Date Time Temp Pulse Resp B/P Pulse Ox O2 Delivery O2 Flow Rate FiO2 06/23/17 05:06 98.1 84 20 98/61 99 06/23/17 00:00 98.4 66 18 119/55 99 06/22/17 21:26 95 Trach Collar 28 06/22/17 20:00 90 06/22/17 20:00 98.7 93 20 120/70 99 06/22/17 18:34 71 06/22/17 16:36 98.4 91 19 108/59 97 06/22/17 12:06 98.8 86 20 104/56 100 06/22/17 09:40 97 Nasal Cannula 2.00 I/O 06/22/17 06/22/17 06/22/17 06/23/17 06/23/17 06/23/17 07:00 15:00 23:00 07:00 15:00 23:00 Intake Total 0 ml 480 ml 200 ml 730 ml Output Total 200 ml 1150 ml 1000 ml Balance -200 ml -670 ml 200 ml -270 ml Intake Oral 0 ml 480 ml 730 ml IV Total 200 ml Output Urine Total 200 ml 1150 ml 1000 ml # Bowel Movements 0 2 2 Result Diagram: 06/21/17 0933 06/20/17 0359 Imaging Last Impressions Chest X-Ray 05/16/17 0000 Signed Impressions: Service Date/Time: May 12:56 - CONCLUSION: Improving lung aeration with decreasing air space disease. Persistent left basilar consolidation. Carlos Galindo MD Abdomen/Pelvis CT 05/08/17 0000 Signed Impressions: Service Date/Time: Monday, May 08, 2017 23:10 - CONCLUSION: Significant fluid throughout the abdomen and the pelvis with what appears to be a cirrhotic appearing liver and splenomegaly. There is significant small bowel wall thickening throughout the lower abdomen and the upper pelvis without evidence of obstruction Milo Muhammad MD Abdomen X-Ray 05/08/17 Signed Impressions: Service Date/Time: Monday, May 08, 2017 15:30 - CONCLUSION: 1. There is diffuse, mild gaseous distention of the small bowel. No findings to indicate obstruction. Mihir Harry MD Liver Ultrasound 04/15/17 0000 Signed Impressions: Service Date/Time: Saturday, April 15, 2017 09:24 - CONCLUSION: 1. Abnormal appearance of the pancreas with a nonspecific hypoechoic area involving the posterior part of the pancreas along the head and body region. Recommend CT scan of the abdomen with oral and IV contrast further evaluation. 2. Fatty infiltration throughout the liver. 3. There is thickening of the gallbladder wall at 6 mm. This is suggestive of chronic gallbladder disease. 4. Small amount of free fluid adjacent to the liver and spleen in the upper abdomen.. 5. Right-sided pleural effusion. Víctor Rosas MD Head CT 04/12/17 0000 Signed Impressions: Service Date/Time: Wednesday, April 12, 2017 21:30 - CONCLUSION: Pontine encephalomalacia. Left mastoiditis. Casper Alva MD Head Magnetic Resonance Angiography 03/28/17 0000 Signed Impressions: Service Date/Time: March 17:22 - CONCLUSION: Unremarkable examination. K. Bijan Castillo MD Brain MRI 03/28/17 0000 Signed Impressions: Service Date/Time: March 17:22 - CONCLUSION: 1. 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 Small subacute ischemic bilateral thalamic infarcts. 2. There has been no significant change when compared to the prior exam. Yinka Harman MD Lower Extremity Ultrasound 03/25/17 0000 Signed Impressions: Service Date/Time: Saturday, March 25, 2017 22:17 - CONCLUSION: No evidence of DVT. Víctor Rosas MD CT Angiography 03/21/17 0000 Signed Impressions: Service Date/Time: March 00:33 - CONCLUSION: No evidence of pulmonary embolism is identified. Mild atelectasis left lung base. Fluid or phlegm within the trachea. Milo Muhammad MD Abdomen Ultrasound 03/20/17 0000 Signed Impressions: Service Date/Time: Monday, March 20, 2017 11:38 - CONCLUSION: 1. Hepatosplenomegaly without focal lesion. 2. Probable sludge within the lumen of the gallbladder. No intrahepatic duct. Cheo Martínez MD Shoulder X-Ray 03/02/17 1404 Signed Impressions: Service Date/Time: Thursday, March 02, 2017 15:18 - CONCLUSION: No evidence of recent bony injury. Deformity of the lateral left clavicle suggests old healed trauma. Cheo Martínez MD Maxillofacial CT 03/02/17 1342 Signed Impressions: Service Date/Time: Thursday, March 02, 2017 14:52 - CONCLUSION: Negative CT of the facial bones. Cheo Martínez MD Chest CT 03/02/17 1342 Signed Impressions: Service Date/Time: Thursday, March 02, 2017 15:04 - CONCLUSION: 1. Abnormal appearance of the lateral left clavicle suggesting a combination of acute and chronic bony injury. Fracture lucencies without bridging callus is seen the region of the coracoid process. 2. The lungs are clear. No evidence of pneumothorax. 3. Moderate size hiatus hernia. Cheo Martínez MD Cervical Spine CT 03/02/17 1342 Signed Impressions: Service Date/Time: Thursday, March 02, 2017 14:52 - CONCLUSION: Negative CT cervical spine. Cheo Martínez MD Objective Remarks GENERAL: Well-nourished, well-developed male patient lying in bed in no apparent distress, t piece in place. SKIN: Warm and dry. Trach site with dressing in place, c/d. No edema noted. HEENT: Normocephalic. No scleral icterus. No injection or drainage. NECK: Supple, trachea midline. No JVD. CARDIOVASCULAR: Regular rate and rhythm. No murmur appreciated. RESPIRATORY: Breath sounds equal bilaterally. Distant breath sounds. No accessory muscle use. GASTROINTESTINAL: Abdomen soft,nondistended. PEG site, dressing in place, c/d/ i. TF off. EXTREMITIES: No cyanosis, or edema. NEUROLOGICAL: Awake, alert, and oriented x 3 Procedures 03/02/2017 - arterial line and central line placement. 03/25/2017 - central line placement and intubation 06/06/17 -PEG tube replaced (Dr. Estevez). 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 Sandhu is a 61 year old male with a history of alcohol abuse, severe hypernatremia who presented to the ED on 03/02/2017 due to worsening fatigue, weakness that started 13 days prior to this hospitalization. He was found to have significant delirium. He admitted to drinking alcohol as well as taking xanax as well. ED work up indicated Na 99, Bilirubin 8.9, Lactate 9.8, Ammonia 60, CK 7000, troponin 4.9, Creatinine 1.5, bicarb 13. His WBC was 12, Platelets 112, INR 1.9. Meld score 26. He was severely hydrated. Patient was started on isotonic saline in an effort to improve hypovolemia. Patients sodium corrected too rapidly. Patient was treated for distributive shock, alcohol withdrawal and electrolyte imbalances in the ICU. 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 Chronic severe hyponatremia Bilateral thalamic stroke Seizures - Continue Keppra 1000 mg PO every 12 hours. - Lorazepam 1 mg every 12 hours PO for seizures. Constipation. resolved - Continue scheduled Adele-Colace. - Follow clinically. Alcoholic liver disease Alcohol dependence Lower extremity thigh edema, improving - CT abdomen shows liver cirrhosis. - Continue folic acid and thiamine. - Furosemide 20 mg PO daily. - KCL eff 25 meq PO daily while on Lasix. - Monitor UO, electrolytes and intake closely while on diuretics. - PT and OT services continue, endurance is currently poor/highly limited. Acute hypoxemic and hypercapnic respiratory failure - Pulmonology following. - Status post tracheostomy on 04/16/2017. Encourage use of PMV as tolerated. - Continue Mucolytics and Mucinex. - Continue Duonebs scheduled. Depression Insomnia - Trazodone 75 mg PO HS; improved sleep reported. Monitor for over sedation. - Monitor for suicidal ideation. No suicidal ideation at this time. Upper respiratory bacterial infection, acute on chronic: Likely colonization and source of active infection. - Sputum culture growing Pseudomonas aeruginosa and Group D Enterococcus on 05/30/17. - Levaquin course completed. Urinary tract infection, reinfection. - Urine culture + Klebsiella pneumoniae and Enterococcus faecalis on . Ceftriaxone given and course completed. - Urine culture 06/15/17 growing Acinetobacter Baumannii/Haemol. Repeat urine culture ordered and pending. CBC reviewed today, WBC increased to 12.4. Afebrile. Continue Unasyn 3 g IV q6h (Start 06/20- end 07/04). Prolonged immobility: Continue PT. Continue stretcher chair. Chronic pain: Continue Morphine IR 15 mg q 4hrs. PEG site infection, resolved. - PEG site culture growing pseudomonas and Group D Enterococcus on 06/01/17. Removed and status post replacement 06/06/17. - Speech following patient, tolerating PO intake. Recommendations for mechanical soft and thin liquids. Monitor PO intake closely. Monitor for aspiration. - Levaquin (started 06/01/17 - stopped 06/08/17) for infected PEG site. GI prophylaxis: Prevacid DVT Prophylaxis: Heparin Full code. Discharge Planning Last CM note: 06/21/17 Miguel Angel is still following this pt. Pt friend Guillermo has been contacted and will be locating pt bank statements to provide to Miguel Angel. Vannesa has spoken to pt and he is agreeable with going to facility but at this time isolation is in question. Nayeli Devlin Jun 23, 2017 08:59
[2017-06-23] MEDS: MUPIROCIN 2% OINT 1 APPLIC/GM SYR EACH NARE SCH ×2 (10:07→20:12)
[2017-06-23] MEDS: ARTIFICIAL TEARS OPTH SOLN 15 ML BTL EACH EYE SCH ×3 (10:07→19:11)
[2017-06-23] MEDS: FUROSEMIDE 20 MG TAB PO SCH (10:08)
[2017-06-23] MEDS: levETIRAcetam 500 MG TAB PO SCH ×2 (10:08→20:11)
[2017-06-23] MEDS: FOLIC ACID 1 MG TAB PEG SCH (10:08)
[2017-06-23] MEDS: LACTOBACILLUS ACIDOPHILUS TAB PO SCH ×3 (10:08→19:11)
[2017-06-23] MEDS: LANSOPRAZOLE SOLUTAB 30 MG TAB NG SCH (10:08)
[2017-06-23] MEDS: DOCUSATE SODIUM 50 MG/SENNA 8.6 MG TAB PO SCH (10:08)
[2017-06-23] MEDS: guaiFENesin E.R. 600 MG TAB PO SCH ×2 (10:08→20:12)
[2017-06-23] MEDS: POTASSIUM CHLORIDE 25 MEQ EFFERVESCENT TAB NG SCH (10:08)
[2017-06-23] MEDS: THIAMINE HCL 100 MG TAB PO SCH (10:09)
[2017-06-23] MEDS: SODIUM HYPOCHLORITE 0.125% 500 ML BTL TOPICAL SCH (10:09)
[2017-06-23] MEDS: NYSTATIN 100,000 U/GM PWD 15 GM BTL TOPICAL SCH ×2 (10:09→20:13)
[2017-06-23] MEDS: HEPARIN SODIUM - SQ 10,000 UNITS/ML VIAL SQ SCH ×2 (10:09→20:11)
[2017-06-23] MEDS: RESP: ALBUTEROL 2.5 MG/3 ML NEB (PRN) INH (17:13)
[2017-06-23] MEDS: SODIUM CHLORIDE 0.9% FLUSH 10 ML FLUSH IVF PRN (20:12)
[2017-06-23] MEDS: MORPHINE SULFATE 15 MG TAB PO PRN (20:12)
[2017-06-23] MEDS: traZODone HCL 50 MG TAB PO SCH (20:13)
[2017-06-23] MEDS: ACETAMINOPHEN 325 MG TAB PO PRN (20:17)
[2017-06-24] VITALS (10 sets, daily range): BP systolic 92–120; BP diastolic 54–68; PULSE 68–94; RESP 18–20; TEMP 97.6–98.7; O2SAT 97–100
[2017-06-24] MEDS: AMPICILLIN-SULBACTAM INJ 3 GM in SODIUM CHLORIDE 0.9% INJ 100 ML IV SCH ×4 (06:12→21:23)
[2017-06-24] MEDS: CHLORHEXIDINE 0.12% (ORAL KIT) 15 ML CUP MT SCH ×2 (08:00→20:00)
[2017-06-24] MEDS: MUPIROCIN 2% OINT 1 APPLIC/GM SYR EACH NARE SCH ×2 (09:00→21:17)
[2017-06-24] MEDS: SODIUM HYPOCHLORITE 0.125% 500 ML BTL TOPICAL SCH (09:00)
[2017-06-24] MEDS: NYSTATIN 100,000 U/GM PWD 15 GM BTL TOPICAL SCH ×2 (09:00→21:27)
[2017-06-24] MEDS: POTASSIUM CHLORIDE 25 MEQ EFFERVESCENT TAB NG SCH (10:16)
[2017-06-24] MEDS: LANSOPRAZOLE SOLUTAB 30 MG TAB NG SCH (10:16)
[2017-06-24] MEDS: HEPARIN SODIUM - SQ 10,000 UNITS/ML VIAL SQ SCH ×2 (10:16→21:17)
[2017-06-24] MEDS: DOCUSATE SODIUM 50 MG/SENNA 8.6 MG TAB PO SCH (10:16)
[2017-06-24] MEDS: guaiFENesin E.R. 600 MG TAB PO SCH ×2 (10:16→21:17)
[2017-06-24] MEDS: THIAMINE HCL 100 MG TAB PO SCH (10:17)
[2017-06-24] MEDS: FOLIC ACID 1 MG TAB PEG SCH (10:17)
[2017-06-24] MEDS: LACTOBACILLUS ACIDOPHILUS TAB PO SCH ×3 (10:17→16:46)
[2017-06-24] MEDS: levETIRAcetam 500 MG TAB PO SCH ×2 (10:17→21:17)
[2017-06-24] MEDS: ARTIFICIAL TEARS OPTH SOLN 15 ML BTL EACH EYE SCH ×3 (10:18→16:46)
[2017-06-24] MEDS: FUROSEMIDE 20 MG TAB PO SCH (10:18)
--- NOTE | 2017-06-24 16:01 | HHI.PR ---
Subjective Remarks Follow-up for hyponatremia, osmotic demyelination syndrome, debilitation. Patient seen and examined. Awake and alert. Tolerating PO intake. Noted allergies to tuna fish and chicken "I break out in a Hell of a rash." Sore throat continues. Pain well controlled and is "holding off on taking pain medication" earlier or on PRN basis. Secretions reported to continue, though less than in recent past. Pt reproted being able to stand for a count of 5 "5 times the other day." He denied being able to ambulate at the present time. Pt noted tube feeding have resumed. Denies any new acute complaints overnight. Denies any recent fever, chills, cough, abdominal pain, n/v, diarrhea, or bloody urine or stool. Per RN (Alina) pt has not had acute issues overnight or since start of shift. Objective Vitals Vital Signs Date Time Temp Pulse Resp B/P Pulse Ox O2 Delivery O2 Flow Rate FiO2 06/24/17 12:00 98.2 74 20 99/55 100 06/24/17 09:19 98 Nasal Cannula 3.00 06/24/17 09:19 Nasal Cannula 3.00 06/24/17 08:32 68 06/24/17 08:00 Nasal Cannula 2.00 06/24/17 08:00 98.3 76 20 101/59 99 06/24/17 04:00 97.6 72 18 92/55 99 06/24/17 00:00 98.7 94 20 93/54 97 06/23/17 22:12 Trach Collar 6.00 28 06/23/17 20:00 97 06/23/17 20:00 100.4 93 20 127/70 97 06/23/17 17:17 97 21 06/23/17 16:00 98.9 94 20 111/60 98 I/O 06/23/17 06/23/17 06/23/17 06/24/17 06/24/17 06/24/17 07:00 15:00 23:00 07:00 15:00 23:00 Intake Total 1390 ml 1000 ml 62 ml Output Total 1000 ml 650 ml 1 ml 650 ml Balance 390 ml 350 ml 61 ml -650 ml Intake Oral 730 ml 800 ml IV Total 200 ml 2 ml Tube Feeding 560 ml Tube Irrigant 100 ml 60 ml Output Urine Total 1000 ml 650 ml 650 ml Stool Total 1 ml # Bowel Movements 2 1 0 Result Diagram: 06/21/17 0933 06/20/17 0359 Imaging Last Impressions Chest X-Ray 05/16/17 0000 Signed Impressions: Service Date/Time: May 12:56 - CONCLUSION: Improving lung aeration with decreasing air space disease. Persistent left basilar consolidation. Carlos Galindo MD Abdomen/Pelvis CT 05/08/17 0000 Signed Impressions: Service Date/Time: Monday, May 08, 2017 23:10 - CONCLUSION: Significant fluid throughout the abdomen and the pelvis with what appears to be a cirrhotic appearing liver and splenomegaly. There is significant small bowel wall thickening throughout the lower abdomen and the upper pelvis without evidence of obstruction Milo uMhammad MD Abdomen X-Ray 05/08/17 0000 Signed Impressions: Service Date/Time: Monday, May 08, 2017 15:30 - CONCLUSION: 1. There is diffuse, mild gaseous distention of the small bowel. No findings to indicate obstruction. Mihir Harry MD Liver Ultrasound 04/15/17 0000 Signed Impressions: Service Date/Time: Saturday, April 15, 2017 09:24 - CONCLUSION: 1. Abnormal appearance of the pancreas with a nonspecific hypoechoic area involving the posterior part of the pancreas along the head and body region. Recommend CT scan of the abdomen with oral and IV contrast further evaluation. 2. Fatty infiltration throughout the liver. 3. There is thickening of the gallbladder wall at 6 mm. This is suggestive of chronic gallbladder disease. 4. Small amount of free fluid adjacent to the liver and spleen in the upper abdomen.. 5. Right-sided pleural effusion. Víctor Rosas MD Head CT 04/12/17 0000 Signed Impressions: Service Date/Time: Wednesday, April 12, 2017 21:30 - CONCLUSION: Pontine encephalomalacia. Left mastoiditis. Casper Alva MD Head Magnetic Resonance Angiography 03/28/17 0000 Signed Impressions: Service Date/Time: March 17:22 - CONCLUSION: Unremarkable examination. Bety Castillo MD Brain MRI 03/28/17 0000 Signed Impressions: Service Date/Time: March 17:22 - CONCLUSION: 1. 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 Small subacute ischemic bilateral thalamic infarcts. 2. There has been no significant change when compared to the prior exam. Yinka Harman MD Lower Extremity Ultrasound 03/25/17 0000 Signed Impressions: Service Date/Time: Saturday, March 25, 2017 22:17 - CONCLUSION: No evidence of DVT. Víctor Rosas MD CT Angiography 03/21/17 0000 Signed Impressions: Service Date/Time: March 00:33 - CONCLUSION: No evidence of pulmonary embolism is identified. Mild atelectasis left lung base. Fluid or phlegm within the trachea. Milo Muhammad MD Abdomen Ultrasound 03/20/17 0000 Signed Impressions: Service Date/Time: Monday, March 20, 2017 11:38 - CONCLUSION: 1. Hepatosplenomegaly without focal lesion. 2. Probable sludge within the lumen of the gallbladder. No intrahepatic duct. Cheo Martínez MD Shoulder X-Ray 03/02/17 1404 Signed Impressions: Service Date/Time: Thursday, March 02, 2017 15:18 - CONCLUSION: No evidence of recent bony injury. Deformity of the lateral left clavicle suggests old healed trauma. Cheo Martínez MD Maxillofacial CT 03/02/17 1342 Signed Impressions: Service Date/Time: Thursday, March 02, 2017 14:52 - CONCLUSION: Negative CT of the facial bones. Cheo Martínez MD Chest CT 03/02/17 1342 Signed Impressions: Service Date/Time: Thursday, March 02, 2017 15:04 - CONCLUSION: 1. Abnormal appearance of the lateral left clavicle suggesting a combination of acute and chronic bony injury. Fracture lucencies without bridging callus is seen the region of the coracoid process. 2. The lungs are clear. No evidence of pneumothorax. 3. Moderate size hiatus hernia. Cheo Martínez MD Cervical Spine CT 03/02/17 1342 Signed Impressions: Service Date/Time: Thursday, March 02, 2017 14:52 - CONCLUSION: Negative CT cervical spine. Cheo Martínez MD Objective Remarks GENERAL: Laying abed, in NAD. Pt speaking as t-tube is capped. PMV is in place SKIN: Warm and dry. Scabs noted on left side of head, improving. Wound at tracheostomy site is covered with gauze and not observable. HEAD: Normocephalic. EYES: No scleral icterus. No injection or drainage. NECK: Supple, trachea midline. Lymphadenopathy of superior cervical chain continues and is smaller.. CARDIOVASCULAR: Regular rate and rhythm without murmurs, gallops, or rubs. RESPIRATORY: Breath sounds equal bilaterally.No wheezes noted yet bilateral rhonchi present. No accessory muscle use. GASTROINTESTINAL: Abdomen soft, nondistended. Pt continues to report pain/ discomfort at site of former PEG tube upon palpation. MUSCULOSKELETAL: No cyanosis, or edema. Upper body strength is 4/5, lower body strength is 3/5. PSYCHOLOGICAL: A&O x3, no overt signs/symptoms of depression and/or anxiety.Speech is clear and fluent. Procedures 03/02/2017 - arterial line and central line placement. 03/25/2017 - central line placement and intubation 06/06/17 -PEG tube replaced (Dr. Estevez). Medications and IVs Current Medications Medications (Trade) Dose Ordered Sig/Mae Route Start Time Stop Time Status Last Admin (Tears Naturale Opth Soln) 1 drop TID EACH EYE 03/20/17 09:00 06/24/17 13:00 (Zofran Inj) 4 mg Q6H PRN IV 03/20/17 07:30 06/19/17 11:49 (Senokot) 17.2 mg Q12H PRN PO 03/20/17 07:30 (Bactroban Nasal 2% Oint) 1 applic Taper BID EACH NARE 03/20/17 09:00 03/16/18 08:59 06/24/17 09:00 (Lactinex) 1 tab TID PO 03/24/17 18:00 06/24/17 13:50 (NS Flush) UNSCH PRN IVF 03/25/17 10:15 06/23/17 20:12 (Peridex 0.12% Liq) 15 ml BID@08,20 MT 03/25/17 20:00 06/24/17 08:00 (Tylenol) 500 mg Q6H PRN PO 04/01/17 23:15 06/23/17 20:17 (Mycostatin Powder) 1 applic Q12HR TOPICAL 04/03/17 21:00 06/24/17 09:00 (Vitamin B1) 100 mg DAILY PO 04/05/17 09:00 06/24/17 10:17 (Ativan Inj) 1 mg Q2H PRN IV PUSH 04/13/17 11:00 04/19/17 17:41 (Mag-Ox) 800 mg UNSCH PRN PO 04/14/17 18:00 (Prevacid Odt) 30 mg DAILY NG 04/27/17 09:00 06/24/17 10:16 (Keppra Liq) 1,000 mg Q12HR NG 04/27/17 21:00 Hold 05/31/17 08:59 (Heparin Inj) 5,000 units Q12HR SQ 04/27/17 21:00 06/24/17 10:16 (Dakin'S 0.125% Soln) 100 ml DAILY TOPICAL 05/02/17 12:00 06/24/17 09:00 (Lactulose Liq) 30 ml Q12H PRN PO 05/10/17 17:00 06/19/17 13:05 (Folate) 1 mg DAILY PEG 05/21/17 09:00 06/24/17 10:17 (Benadryl Liq) 12.5 mg Q4H PRN PO 05/27/17 19:15 05/31/17 18:43 (Benadryl Inj) 12.5 mg Q4H PRN IV 06/01/17 09:15 06/02/17 22:49 (Chloraseptic [place]) 2 spray Q2H PRN OROPHARYNG 06/02/17 10:45 06/22/17 05:01 (K-Lyte Cl Eff) 25 meq DAILY NG 06/06/17 12:45 06/24/17 10:16 (Lasix) 20 mg DAILY PO 06/07/17 09:00 06/24/17 10:18 (Keppra) 1,000 mg Q12HR PO 06/09/17 09:00 06/24/17 10:17 (Desyrel) 75 mg HS PO 06/11/17 21:00 06/23/17 20:13 (Mucinex Er) 600 mg BID PO 06/15/17 21:00 06/24/17 10:16 (Msir) 15 mg Q4H PRN PO 06/16/17 08:45 06/23/17 20:12 Senna/Docusate Sodium 1 tab 1 tab DAILY PO 06/20/17 09:00 06/24/17 10:16 (Unasyn Inj/NS Inj) 100 ml @ 200 mls/hr Q6H IV 06/20/17 10:00 07/04/17 09:59 06/24/17 10:15 Urinary Catheter: No Date of Insertion: Jun 13, 2017 Date of Removal: Jun 13, 2017 A/P Problem List: (1) Chronic hyponatremia ICD Code: E87.1 Status: Acute (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 Sandhu is a 61 year old male with a history of alcohol abuse, severe hypernatremia who presented to the ED on 03/02/2017 due to worsening fatigue, weakness that started 13 days prior to this hospitalization. He was found to have significant delirium. He admitted to drinking alcohol as well as taking xanax as well. ED work up indicated Na 99, Bilirubin 8.9, Lactate 9.8, Ammonia 60, CK 7000, troponin 4.9, Creatinine 1.5, bicarb 13. His WBC was 12, Platelets 112, INR 1.9. Meld score 26. He was severely hydrated. Patient was started on isotonic saline in an effort to improve hypovolemia. Patients sodium corrected too rapidly. Patient was treated for distributive shock, alcohol withdrawal and electrolyte imbalances in the ICU. Throat swab/culture ordered. Notes indicate IV Unasyn continues until 07/04 for UTI. Levsin ordered for secretions. 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 Chronic severe hyponatremia Bilateral thalamic stroke Seizures - Continue Keppra 1000 mg PO every 12 hours. - Lorazepam 1 mg every 12 hours PO for seizures. Constipation. resolved - Continue scheduled Adele-Colace. - Follow clinically. Alcoholic liver disease Alcohol dependence Lower extremity thigh edema, improving - CT abdomen shows liver cirrhosis. - Continue folic acid and thiamine. - Furosemide 20 mg PO daily. - KCL eff 25 meq PO daily while on Lasix. - Monitor UO, electrolytes and intake closely while on diuretics. - PT and OT services continue, endurance is currently poor/highly limited. Acute hypoxemic and hypercapnic respiratory failure - Pulmonology following. - Status post tracheostomy on 04/16/2017. Encourage use of PMV as tolerated. - Continue Mucolytics and Mucinex. - Continue Duonebs scheduled. Depression Insomnia - Trazodone 75 mg PO HS; improved sleep reported. Monitor for over sedation. - Monitor for suicidal ideation. No suicidal ideation at this time. Upper respiratory bacterial infection, acute on chronic: Likely colonization and source of active infection. - Sputum culture growing Pseudomonas aeruginosa and Group D Enterococcus on 05/30/17. - Levaquin course completed. Urinary tract infection, reinfection. - Urine culture + Klebsiella pneumoniae and Enterococcus faecalis on . Ceftriaxone given and course completed. - Urine culture 06/15/17 growing Acinetobacter Baumannii/Haemol. Repeat urine culture ordered and pending. CBC reviewed today, WBC increased to 12.4. Afebrile. Continue Unasyn 3 g IV q6h (Start 06/20- end 07/04). Prolonged immobility: Continue PT. Continue stretcher chair. Chronic pain: Continue Morphine IR 15 mg q 4hrs. PEG site infection, resolved. - PEG site culture growing pseudomonas and Group D Enterococcus on 06/01/17. Removed and status post replacement 06/06/17. - Speech following patient, tolerating PO intake. Recommendations for mechanical soft and thin liquids. Monitor PO intake closely. Monitor for aspiration. - Levaquin (started 06/01/17 - stopped 06/08/17) for infected PEG site. GI prophylaxis: Prevacid DVT Prophylaxis: Heparin Full code. Case discussed with pt, RN, and Dr. Sebastian. Discharge Planning Discharge Planning Last CM note: 06/21/17 Miguel Angel is still following this pt. Pt friend Guillermo has been contacted and will be locating pt bank statements to provide to Miguel Angel. Vannesa has spoken to pt and he is agreeable with going to facility but at this time isolation is in question. Kevyn Milan Jr. DEB Jun 24, 2017 16:01
[2017-06-24] MEDS: MORPHINE SULFATE 15 MG TAB PO PRN (21:16)
[2017-06-24] MEDS: traZODone HCL 50 MG TAB PO SCH (21:17)
[2017-06-24] MEDS: PHENAZOPYRIDINE HCL 200 MG TAB PO SCH (23:01)
[2017-06-25] VITALS (9 sets, daily range): BP systolic 98–109; BP diastolic 59–67; PULSE 65–83; RESP 18–20; TEMP 98.3–98.6; O2SAT 92–99
[2017-06-25] MEDS: MORPHINE SULFATE 15 MG TAB PO PRN ×2 (01:23→21:09)
[2017-06-25] MEDS: AMPICILLIN-SULBACTAM INJ 3 GM in SODIUM CHLORIDE 0.9% INJ 100 ML IV SCH ×4 (04:56→21:09)
[2017-06-25] MEDS: PHENAZOPYRIDINE HCL 200 MG TAB PO SCH ×3 (05:38→21:09)
[2017-06-25] MEDS: CHLORHEXIDINE 0.12% (ORAL KIT) 15 ML CUP MT SCH ×2 (08:00→20:00)
[2017-06-25] MEDS: LACTOBACILLUS ACIDOPHILUS TAB PO SCH ×3 (09:34→17:44)
[2017-06-25] MEDS: LANSOPRAZOLE SOLUTAB 30 MG TAB NG SCH (09:34)
[2017-06-25] MEDS: THIAMINE HCL 100 MG TAB PO SCH (09:34)
[2017-06-25] MEDS: FOLIC ACID 1 MG TAB PEG SCH (09:34)
[2017-06-25] MEDS: POTASSIUM CHLORIDE 25 MEQ EFFERVESCENT TAB NG SCH (09:34)
[2017-06-25] MEDS: FUROSEMIDE 20 MG TAB PO SCH (09:34)
[2017-06-25] MEDS: levETIRAcetam 500 MG TAB PO SCH ×2 (09:34→21:08)
[2017-06-25] MEDS: MUPIROCIN 2% OINT 1 APPLIC/GM SYR EACH NARE SCH ×2 (09:34→21:08)
[2017-06-25] MEDS: guaiFENesin E.R. 600 MG TAB PO SCH ×2 (09:34→21:09)
[2017-06-25] MEDS: DOCUSATE SODIUM 50 MG/SENNA 8.6 MG TAB PO SCH (09:34)
[2017-06-25] MEDS: HEPARIN SODIUM - SQ 10,000 UNITS/ML VIAL SQ SCH ×2 (09:35→21:09)
[2017-06-25] MEDS: SODIUM HYPOCHLORITE 0.125% 500 ML BTL TOPICAL SCH (09:36)
[2017-06-25] MEDS: ARTIFICIAL TEARS OPTH SOLN 15 ML BTL EACH EYE SCH ×3 (09:40→17:43)
[2017-06-25] MEDS: NYSTATIN 100,000 U/GM PWD 15 GM BTL TOPICAL SCH ×2 (09:41→21:00)
--- NOTE | 2017-06-25 16:26 | HHI.PR ---
Subjective Remarks Follow-up for hyponatremia, osmotic demyelination syndrome, debilitation. Patient seen and examined. Awake and alert. Sore throat continues. Chloraseptic spray "helps a lot." Pt stated throat culture was obtained yesterday. Secretions reported to be decreased, reported Levsin is "helping me a bunch." Pt reported making gains in Pt and wanting "to get up and walk soon." "The stinging (dysuria) has pretty much stopped. That pill worked great." Denies any new acute complaints overnight. Denies any recent fever, chills, cough, abdominal pain, n/v, diarrhea, or bloody urine or stool. Per RN (Amanda) pt has not had acute issues overnight or since start of shift. Objective Vitals Vital Signs Date Time Temp Pulse Resp B/P Pulse Ox O2 Delivery O2 Flow Rate FiO2 06/25/17 12:00 98.6 65 18 108/63 96 06/25/17 09:30 96 Nasal Cannula 2.00 06/25/17 09:30 Nasal Cannula 2.00 06/25/17 08:00 98.3 79 18 98/59 98 06/25/17 04:00 98.3 79 18 106/59 96 06/25/17 00:12 98.5 83 20 109/64 99 06/24/17 21:00 91 06/24/17 20:42 98.3 84 18 114/68 100 06/24/17 16:49 97 21 I/O 06/24/17 06/24/17 06/24/17 06/25/17 06/25/17 06/25/17 06:59 14:59 22:59 06:59 14:59 22:59 Intake Total 552 ml Output Total 650 ml 1170 ml 450 ml Balance -650 ml -1170 ml 102 ml Tube Feeding 532 ml Tube Irrigant 20 ml Output Urine Total 650 ml 1170 ml 450 ml # Bowel Movements 0 2 0 Result Diagram: 06/21/17 0933 Objective Remarks GENERAL: Laying abed, in NAD. Pt speaking as t-tube is capped. PMV is in place SKIN: Warm and dry. Scabs noted on left side of head, seeming healed. Wound at tracheostomy site is covered with gauze and not observable. HEAD: Normocephalic. EYES: No scleral icterus. No injection or drainage. NECK: Supple, trachea midline. Lymphadenopathy of superior cervical chain resolved. CARDIOVASCULAR: Regular rate and rhythm without murmurs, gallops, or rubs. RESPIRATORY: Breath sounds equal bilaterally.No rhonchi or wheezes note. No accessory muscle use. GASTROINTESTINAL: Abdomen soft, nondistended. No tenderness elicited at former PEG site. MUSCULOSKELETAL: No cyanosis, or edema. Upper body strength is 4/5, lower body strength is 3/5. PSYCHOLOGICAL: A&O x3, no overt signs/symptoms of depression and/or anxiety.Speech is clear and fluent. Procedures 03/02/2017 - arterial line and central line placement. 03/25/2017 - central line placement and intubation 06/06/17 -PEG tube replaced (Dr. Estevez). Medications and IVs Current Medications Medications (Trade) Dose Ordered Sig/Mae Route Start Time Stop Time Status Last Admin (Tears Naturale Opth Soln) 1 drop TID EACH EYE 03/20/17 09:00 06/25/17 13:22 (Zofran Inj) 4 mg Q6H PRN IV 03/20/17 07:30 06/19/17 11:49 (Senokot) 17.2 mg Q12H PRN PO 03/20/17 07:30 (Bactroban Nasal 2% Oint) 1 applic Taper BID EACH NARE 03/20/17 09:00 03/16/18 08:59 06/25/17 09:34 (Lactinex) 1 tab TID PO 03/24/17 18:00 06/25/17 13:23 (NS Flush) UNSCH PRN IVF 03/25/17 10:15 06/23/17 20:12 (Peridex 0.12% Liq) 15 ml BID@08,20 MT 03/25/17 20:00 06/24/17 20:00 (Tylenol) 500 mg Q6H PRN PO 04/01/17 23:15 06/23/17 20:17 (Mycostatin Powder) 1 applic Q12HR TOPICAL 04/03/17 21:00 06/25/17 09:41 (Vitamin B1) 100 mg DAILY PO 04/05/17 09:00 06/25/17 09:34 (Ativan Inj) 1 mg Q2H PRN IV PUSH 04/13/17 11:00 04/19/17 17:41 (Mag-Ox) 800 mg UNSCH PRN PO 04/14/17 18:00 (Prevacid Odt) 30 mg DAILY NG 04/27/17 09:00 06/25/17 09:34 (Keppra Liq) 1,000 mg Q12HR NG 04/27/17 21:00 Hold 05/31/17 08:59 (Heparin Inj) 5,000 units Q12HR SQ 04/27/17 21:00 06/25/17 09:35 (Dakin'S 0.125% Soln) 100 ml DAILY TOPICAL 05/02/17 12:00 06/25/17 09:36 (Lactulose Liq) 30 ml Q12H PRN PO 05/10/17 17:00 06/19/17 13:05 (Folate) 1 mg DAILY PEG 05/21/17 09:00 06/25/17 09:34 (Benadryl Liq) 12.5 mg Q4H PRN PO 05/27/17 19:15 05/31/17 18:43 (Benadryl Inj) 12.5 mg Q4H PRN IV 06/01/17 09:15 06/02/17 22:49 (Chloraseptic [place]) 2 spray Q2H PRN OROPHARYNG 06/02/17 10:45 06/22/17 05:01 (K-Lyte Cl Eff) 25 meq DAILY NG 06/06/17 12:45 06/25/17 09:34 (Lasix) 20 mg DAILY PO 06/07/17 09:00 06/25/17 09:34 (Keppra) 1,000 mg Q12HR PO 06/09/17 09:00 06/25/17 09:34 (Desyrel) 75 mg HS PO 06/11/17 21:00 06/24/17 21:17 (Mucinex Er) 600 mg BID PO 06/15/17 21:00 06/25/17 09:34 (Msir) 15 mg Q4H PRN PO 06/16/17 08:45 06/25/17 01:23 Senna/Docusate Sodium 1 tab 1 tab DAILY PO 06/20/17 09:00 06/25/17 09:34 (Unasyn Inj/NS Inj) 100 ml @ 200 mls/hr Q6H IV 06/20/17 10:00 07/04/17 09:59 06/25/17 09:44 (Pyridium) 200 mg Q8HR PO 06/24/17 22:00 06/25/17 05:38 Urinary Catheter: Yes Assessment to: Continue Johns insert reason: Prolonged Immobilization Date of Insertion: Jun 13, 2017 Date of Removal: Jun 13, 2017 A/P Problem List: (1) Chronic hyponatremia ICD Code: E87.1 Status: Acute (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 Sandhu is a 61 year old male with a history of alcohol abuse, severe hypernatremia who presented to the ED on 03/02/2017 due to worsening fatigue, weakness that started 13 days prior to this hospitalization. He was found to have significant delirium. He admitted to drinking alcohol as well as taking xanax as well. ED work up indicated Na 99, Bilirubin 8.9, Lactate 9.8, Ammonia 60, CK 7000, troponin 4.9, Creatinine 1.5, bicarb 13. His WBC was 12, Platelets 112, INR 1.9. Meld score 26. He was severely hydrated. Patient was started on isotonic saline in an effort to improve hypovolemia. Patients sodium corrected too rapidly. Patient was treated for distributive shock, alcohol withdrawal and electrolyte imbalances in the ICU. Throat swab/culture ordered, results pending. Levsin continued. Pyridium ordered. Pt notes reviewed. 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 Chronic severe hyponatremia Bilateral thalamic stroke Seizures - Continue Keppra 1000 mg PO every 12 hours. - Lorazepam 1 mg every 12 hours PO for seizures. Constipation. resolved - Continue scheduled Adele-Colace. - Follow clinically. Alcoholic liver disease Alcohol dependence Lower extremity thigh edema, improving - CT abdomen shows liver cirrhosis. - Continue folic acid and thiamine. - Furosemide 20 mg PO daily. - KCL eff 25 meq PO daily while on Lasix. - Monitor UO, electrolytes and intake closely while on diuretics. - PT and OT services continue, endurance is currently poor/highly limited. Acute hypoxemic and hypercapnic respiratory failure - Pulmonology following. - Status post tracheostomy on 04/16/2017. Encourage use of PMV as tolerated. - Continue Mucolytics and Mucinex. - Continue Duonebs scheduled. Depression Insomnia - Trazodone 75 mg PO HS; improved sleep reported. Monitor for over sedation. - Monitor for suicidal ideation. No suicidal ideation at this time. Upper respiratory bacterial infection, acute on chronic: Likely colonization and source of active infection. - Sputum culture growing Pseudomonas aeruginosa and Group D Enterococcus on 05/30/17. - Levaquin course completed. Urinary tract infection, reinfection. - Urine culture + Klebsiella pneumoniae and Enterococcus faecalis on . Ceftriaxone given and course completed. - Urine culture 06/15/17 growing Acinetobacter Baumannii/Haemol. Repeat urine culture ordered and pending. CBC reviewed today, WBC increased to 12.4. Afebrile. Continue Unasyn 3 g IV q6h (Start 06/20- end 07/04). Prolonged immobility: Continue PT. Continue stretcher chair. Chronic pain: Continue Morphine IR 15 mg q 4hrs. PEG site infection, resolved. - PEG site culture growing pseudomonas and Group D Enterococcus on 06/01/17. Removed and status post replacement 06/06/17. - Speech following patient, tolerating PO intake. Recommendations for mechanical soft and thin liquids. Monitor PO intake closely. Monitor for aspiration. - Levaquin (started 06/01/17 - stopped 06/08/17) for infected PEG site. GI prophylaxis: Prevacid DVT Prophylaxis: Heparin Full code. Case discussed with pt, RN, and Dr. Sebastian. Discharge Planning Discharge Planning Last CM note: 06/21/17 [facility] Angel is still following this pt. Pt friend Guillermo has been contacted and will be locating pt bank statements to provide to Miguel Angel. Vannesa has spoken to pt and he is agreeable with going to facility but at this time isolation is in question. Kevyn Milan Jr. DEB Jun 25, 2017 16:26
[2017-06-25] MEDS: traZODone HCL 50 MG TAB PO SCH (21:14)
[2017-06-26] VITALS (10 sets, daily range): BP systolic 100–112; BP diastolic 53–75; PULSE 74–88; RESP 18–20; TEMP 97.9–98.7; O2SAT 94–99
[2017-06-26] MEDS: PHENAZOPYRIDINE HCL 200 MG TAB PO SCH ×3 (05:08→20:50)
[2017-06-26] MEDS: AMPICILLIN-SULBACTAM INJ 3 GM in SODIUM CHLORIDE 0.9% INJ 100 ML IV SCH ×4 (05:08→20:50)
[2017-06-26] MEDS: CHLORHEXIDINE 0.12% (ORAL KIT) 15 ML CUP MT SCH ×2 (08:00→20:00)
[2017-06-26] MEDS: ARTIFICIAL TEARS OPTH SOLN 15 ML BTL EACH EYE SCH ×3 (09:00→18:00)
[2017-06-26] MEDS: guaiFENesin E.R. 600 MG TAB PO SCH ×2 (10:01→20:50)
[2017-06-26] MEDS: levETIRAcetam 500 MG TAB PO SCH ×2 (10:01→20:50)
[2017-06-26] MEDS: LANSOPRAZOLE SOLUTAB 30 MG TAB NG SCH (10:01)
[2017-06-26] MEDS: THIAMINE HCL 100 MG TAB PO SCH (10:02)
[2017-06-26] MEDS: FOLIC ACID 1 MG TAB PEG SCH (10:03)
[2017-06-26] MEDS: FUROSEMIDE 20 MG TAB PO SCH (10:03)
[2017-06-26] MEDS: LACTOBACILLUS ACIDOPHILUS TAB PO SCH ×3 (10:03→15:54)
[2017-06-26] MEDS: MUPIROCIN 2% OINT 1 APPLIC/GM SYR EACH NARE SCH ×2 (10:04→20:51)
[2017-06-26] MEDS: POTASSIUM CHLORIDE 25 MEQ EFFERVESCENT TAB NG SCH (10:04)
[2017-06-26] MEDS: DOCUSATE SODIUM 50 MG/SENNA 8.6 MG TAB PO SCH (10:05)
[2017-06-26] MEDS: HEPARIN SODIUM - SQ 10,000 UNITS/ML VIAL SQ SCH ×2 (10:05→20:50)
[2017-06-26] MEDS: NYSTATIN 100,000 U/GM PWD 15 GM BTL TOPICAL SCH ×2 (10:06→20:50)
[2017-06-26] MEDS: SODIUM HYPOCHLORITE 0.125% 500 ML BTL TOPICAL SCH (10:10)
[2017-06-26] MEDS: MORPHINE SULFATE 15 MG TAB PO PRN ×3 (11:51→21:12)
--- NOTE | 2017-06-26 11:58 | HHI.PR ---
Subjective Remarks Follow-up for hyponatremia, osmotic demyelination syndrome, debilitation. Patient seen and examined. Awake and alert. Sore throat continues. Chloraseptic spray "helps a lot." Secretions continue to be decreased. Pt reported making gains in PT with standing, no steps taken. Denies any new acute complaints overnight. Denies any recent fever, chills, cough, abdominal pain, n/v, diarrhea, or bloody urine or stool. Per RN (Amanda) pt has not had acute issues overnight or since start of shift. Objective Vitals Vital Signs Date Time Temp Pulse Resp B/P Pulse Ox O2 Delivery O2 Flow Rate FiO2 06/26/17 04:00 98.7 74 20 105/53 98 06/26/17 01:20 99 Trach Collar 5.00 28 06/26/17 00:00 98.6 88 20 110/63 95 06/25/17 21:31 96 Trach Collar 5.00 28 06/25/17 20:00 Nasal Cannula 2.00 06/25/17 20:00 98.4 83 20 106/64 98 06/25/17 20:00 83 06/25/17 16:00 98.4 82 18 106/67 92 06/25/17 16:00 Nasal Cannula 2.00 06/25/17 12:00 Nasal Cannula 2.00 06/25/17 12:00 98.6 65 18 108/63 96 I/O 06/25/17 06/25/17 06/25/17 06/26/17 06/26/17 06/26/17 06:59 14:59 22:59 06:59 14:59 22:59 Intake Total 552 ml 720 ml 240 ml 200 ml Output Total 450 ml 750 ml 850 ml 150 ml Balance 102 ml -30 ml -610 ml 50 ml Intake Oral 720 ml 240 ml 0 ml IV Total 200 ml Tube Feeding 532 ml Tube Irrigant 20 ml Output Urine Total 450 ml 750 ml 850 ml 150 ml # Bowel Movements 0 2 0 Objective Remarks GENERAL: Laying abed, in NAD. Pt speaking as t-tube is capped. PMV is in place SKIN: Warm and dry. Wound at tracheostomy site is covered with gauze and not observable. HEAD: Normocephalic. EYES: No scleral icterus. No injection or drainage. NECK: Supple, trachea midline. No lymphadenopathy. CARDIOVASCULAR: Regular rate and rhythm without murmurs, gallops, or rubs. RESPIRATORY: Breath sounds equal bilaterally. No rhonchi or wheezes note. No accessory muscle use. GASTROINTESTINAL: Abdomen soft, nondistended. No tenderness. MUSCULOSKELETAL: No cyanosis, or edema. Upper body strength is 4/5, lower body strength is 3/5. PSYCHOLOGICAL: A&O x3, no overt signs/symptoms of depression and/or anxiety.Speech is clear and fluent. Procedures 03/02/2017 - arterial line and central line placement. 03/25/2017 - central line placement and intubation 06/06/17 -PEG tube replaced (Dr. Estevez). Medications and IVs Current Medications Medications (Trade) Dose Ordered Sig/Mae Route Start Time Stop Time Status Last Admin (Tears Naturale Opth Soln) 1 drop TID EACH EYE 03/20/17 09:00 06/25/17 13:22 (Zofran Inj) 4 mg Q6H PRN IV 03/20/17 07:30 06/19/17 11:49 (Senokot) 17.2 mg Q12H PRN PO 03/20/17 07:30 (Bactroban Nasal 2% Oint) 1 applic Taper BID EACH NARE 03/20/17 09:00 03/16/18 08:59 06/26/17 10:04 (Lactinex) 1 tab TID PO 03/24/17 18:00 06/26/17 10:03 (NS Flush) UNSCH PRN IVF 03/25/17 10:15 06/23/17 20:12 (Peridex 0.12% Liq) 15 ml BID@08,20 MT 03/25/17 20:00 06/24/17 20:00 (Tylenol) 500 mg Q6H PRN PO 04/01/17 23:15 06/23/17 20:17 (Mycostatin Powder) 1 applic Q12HR TOPICAL 04/03/17 21:00 06/26/17 10:06 (Vitamin B1) 100 mg DAILY PO 04/05/17 09:00 06/26/17 10:02 (Ativan Inj) 1 mg Q2H PRN IV PUSH 04/13/17 11:00 04/19/17 17:41 (Mag-Ox) 800 mg UNSCH PRN PO 04/14/17 18:00 (Prevacid Odt) 30 mg DAILY NG 04/27/17 09:00 06/26/17 10:01 (Keppra Liq) 1,000 mg Q12HR NG 04/27/17 21:00 Hold 05/31/17 08:59 (Heparin Inj) 5,000 units Q12HR SQ 04/27/17 21:00 06/26/17 10:05 (Dakin'S 0.125% Soln) 100 ml DAILY TOPICAL 05/02/17 12:00 06/26/17 10:10 (Lactulose Liq) 30 ml Q12H PRN PO 05/10/17 17:00 06/19/17 13:05 (Folate) 1 mg DAILY PEG 05/21/17 09:00 06/26/17 10:03 (Benadryl Liq) 12.5 mg Q4H PRN PO 05/27/17 19:15 05/31/17 18:43 (Benadryl Inj) 12.5 mg Q4H PRN IV 06/01/17 09:15 06/02/17 22:49 (Chloraseptic [place]) 2 spray Q2H PRN OROPHARYNG 06/02/17 10:45 06/22/17 05:01 (K-Lyte Cl Eff) 25 meq DAILY NG 06/06/17 12:45 06/26/17 10:04 (Lasix) 20 mg DAILY PO 06/07/17 09:00 06/26/17 10:03 (Keppra) 1,000 mg Q12HR PO 06/09/17 09:00 06/26/17 10:01 (Desyrel) 75 mg HS PO 06/11/17 21:00 06/25/17 21:14 (Mucinex Er) 600 mg BID PO 06/15/17 21:00 06/26/17 10:01 (Msir) 15 mg Q4H PRN PO 06/16/17 08:45 06/25/17 21:09 Senna/Docusate Sodium 1 tab 1 tab DAILY PO 06/20/17 09:00 06/26/17 10:05 (Unasyn Inj/NS Inj) 100 ml @ 200 mls/hr Q6H IV 06/20/17 10:00 07/04/17 09:59 06/26/17 10:05 (Pyridium) 200 mg Q8HR PO 06/24/17 22:00 06/26/17 05:08 Urinary Catheter: Yes Assessment to: Continue Johns insert reason: Prolonged Immobilization Date of Insertion: Jun 13, 2017 Date of Removal: Jun 13, 2017 A/P Problem List: (1) Chronic hyponatremia ICD Code: E87.1 Status: Acute (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 Sandhu is a 61 year old male with a history of alcohol abuse, severe hypernatremia who presented to the ED on 03/02/2017 due to worsening fatigue, weakness that started 13 days prior to this hospitalization. He was found to have significant delirium. He admitted to drinking alcohol as well as taking xanax as well. ED work up indicated Na 99, Bilirubin 8.9, Lactate 9.8, Ammonia 60, CK 7000, troponin 4.9, Creatinine 1.5, bicarb 13. His WBC was 12, Platelets 112, INR 1.9. Meld score 26. He was severely hydrated. Patient was started on isotonic saline in an effort to improve hypovolemia. Patients sodium corrected too rapidly. Patient was treated for distributive shock, alcohol withdrawal and electrolyte imbalances in the ICU. Throat swab/culture preliminary results indicate Nuvia Albicans. Oral Nystatin ordered x 14 days (last dose 07/09). 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 Chronic severe hyponatremia Bilateral thalamic stroke Seizures - Continue Keppra 1000 mg PO every 12 hours. - Lorazepam 1 mg every 12 hours PO for seizures. Constipation. resolved - Continue scheduled Adele-Colace. - Follow clinically. Alcoholic liver disease Alcohol dependence Lower extremity thigh edema, improving - CT abdomen shows liver cirrhosis. - Continue folic acid and thiamine. - Furosemide 20 mg PO daily. - KCL eff 25 meq PO daily while on Lasix. - Monitor UO, electrolytes and intake closely while on diuretics. - PT and OT services continue, endurance is currently poor/highly limited. Acute hypoxemic and hypercapnic respiratory failure - Pulmonology following. - Status post tracheostomy on 04/16/2017. Encourage use of PMV as tolerated. - Continue Mucolytics and Mucinex. - Continue Duonebs scheduled. Depression Insomnia - Trazodone 75 mg PO HS; improved sleep reported. Monitor for over sedation. - Monitor for suicidal ideation. No suicidal ideation at this time. Upper respiratory bacterial infection, acute on chronic: Likely colonization and source of active infection. - Sputum culture growing Pseudomonas aeruginosa and Group D Enterococcus on 05/30/17. - Levaquin course completed. Urinary tract infection, reinfection. - Urine culture + Klebsiella pneumoniae and Enterococcus faecalis on . Ceftriaxone given and course completed. - Urine culture 06/15/17 growing Acinetobacter Baumannii/Haemol. Repeat urine culture ordered and pending. CBC reviewed today, WBC increased to 12.4. Afebrile. Continue Unasyn 3 g IV q6h (Start 06/20- end 07/04). Prolonged immobility: Continue PT. Continue stretcher chair. Chronic pain: Continue Morphine IR 15 mg q 4hrs. PEG site infection, resolved. - PEG site culture growing pseudomonas and Group D Enterococcus on 06/01/17. Removed and status post replacement 06/06/17. - Speech following patient, tolerating PO intake. Recommendations for mechanical soft and thin liquids. Monitor PO intake closely. Monitor for aspiration. - Levaquin (started 06/01/17 - stopped 06/08/17) for infected PEG site. Pharyngitis: -Chloraseptic spray -Oral Nystatin GI prophylaxis: Prevacid DVT Prophylaxis: Heparin Full code. Case discussed with pt, RN, and Dr. Sebastian. Discharge Planning Discharge Planning Last CM note: 06/21/17 [facility] is still following this pt. Pt friend Guillermo has been contacted and will be locating pt bank statements to provide to Miguel Angel. Vannesa has spoken to pt and he is agreeable with going to facility but at this time isolation is in question. Kevyn Milan Jr. DEB Jun 26, 2017 11:58
[2017-06-26] MEDS: NYSTATIN SUSP 500,000 U/5 ML CUP SWISH-SWAL SCH ×3 (13:48→20:49)
[2017-06-26] MEDS: traZODone HCL 50 MG TAB PO SCH (20:49)
[2017-06-27] VITALS (7 sets, daily range): BP systolic 103–141; BP diastolic 56–72; PULSE 75–107; RESP 16–20; TEMP 98.4–99.4; O2SAT 94–100
[2017-06-27] MEDS: MORPHINE SULFATE 15 MG TAB PO PRN ×2 (06:05→20:49)
[2017-06-27] MEDS: PHENAZOPYRIDINE HCL 200 MG TAB PO SCH ×3 (06:05→20:36)
[2017-06-27] MEDS: AMPICILLIN-SULBACTAM INJ 3 GM in SODIUM CHLORIDE 0.9% INJ 100 ML IV SCH ×4 (06:06→20:37)
[2017-06-27] MEDS: CHLORHEXIDINE 0.12% (ORAL KIT) 15 ML CUP MT SCH ×2 (08:00→20:00)
[2017-06-27] MEDS: ARTIFICIAL TEARS OPTH SOLN 15 ML BTL EACH EYE SCH ×3 (09:00→18:00)
[2017-06-27] MEDS: DOCUSATE SODIUM 50 MG/SENNA 8.6 MG TAB PO SCH (09:00)
[2017-06-27] MEDS: MUPIROCIN 2% OINT 1 APPLIC/GM SYR EACH NARE SCH ×2 (09:00→20:39)
[2017-06-27] MEDS: SODIUM HYPOCHLORITE 0.125% 500 ML BTL TOPICAL SCH (09:00)
[2017-06-27] MEDS: NYSTATIN SUSP 500,000 U/5 ML CUP SWISH-SWAL SCH ×4 (09:20→20:36)
[2017-06-27] MEDS: levETIRAcetam 500 MG TAB PO SCH ×2 (09:21→20:36)
[2017-06-27] MEDS: LACTOBACILLUS ACIDOPHILUS TAB PO SCH ×3 (09:21→18:08)
[2017-06-27] MEDS: POTASSIUM CHLORIDE 25 MEQ EFFERVESCENT TAB NG SCH (09:21)
[2017-06-27] MEDS: guaiFENesin E.R. 600 MG TAB PO SCH ×2 (09:21→20:36)
[2017-06-27] MEDS: FUROSEMIDE 20 MG TAB PO SCH (09:21)
[2017-06-27] MEDS: THIAMINE HCL 100 MG TAB PO SCH (09:21)
[2017-06-27] MEDS: LANSOPRAZOLE SOLUTAB 30 MG TAB NG SCH (09:21)
[2017-06-27] MEDS: HEPARIN SODIUM - SQ 10,000 UNITS/ML VIAL SQ SCH ×2 (09:21→20:37)
--- NOTE | 2017-06-27 09:42 | HHI.PR ---
Subjective Remarks Follow-up for hyponatremia, osmotic demyelination syndrome, debilitation. Patient seen and examined. Awake and alert. Pt reporting abdominal pain that began last evening, worsening with time. Quality described as "pain". Pt declined to rate intensity. Reports having to strain to urinate Sore throat improved. Pt informed of karl albicans finding. Denies any other complaint. Denies any recent fever, chills, cough, n/v, diarrhea, or bloody urine or stool. Per RN ([facility]) pt has not had acute issues overnight or since start of shift. Objective Vitals Vital Signs Date Time Temp Pulse Resp B/P Pulse Ox O2 Delivery O2 Flow Rate FiO2 06/27/17 08:22 96 Nasal Cannula 2.00 06/27/17 08:21 Nasal Cannula 2.00 06/27/17 08:00 99.4 98 20 122/72 98 06/27/17 04:00 99.0 107 20 141/69 98 06/27/17 04:00 Trach Collar 28 06/27/17 00:00 98.4 75 16 103/56 100 06/27/17 00:00 Trach Collar 28 06/26/17 22:35 97 Trach Collar 6.00 28 06/26/17 20:00 98.1 86 20 112/75 99 06/26/17 20:00 Nasal Cannula 2.00 06/26/17 20:00 85 06/26/17 16:00 Nasal Cannula 2.00 06/26/17 16:00 98.4 82 18 104/62 97 06/26/17 12:10 94 Nasal Cannula 2.00 06/26/17 12:00 98.2 76 18 100/63 96 06/26/17 12:00 Nasal Cannula 2.00 I/O 06/26/17 06/26/17 06/26/17 06/27/17 06/27/17 06/27/17 06:59 14:59 22:59 06:59 14:59 22:59 Intake Total 200 ml 582 ml 628 ml 716 ml Output Total 150 ml 1000 ml 175 ml Balance 50 ml -418 ml 628 ml 541 ml Intake Oral 0 ml 480 ml 180 ml IV Total 200 ml 102 ml 100 ml 100 ml Tube Feeding 298 ml 566 ml Tube Irrigant 50 ml 50 ml Output Urine Total 150 ml 1000 ml 175 ml # Bowel Movements 0 0 Objective Remarks GENERAL: Laying abed, in mild distress secondary to pain. Pt speaking as t-tube is capped. PMV is in place. Pt preferring to not move, not be examined this morning. Allowed limited examination. SKIN: Warm and dry. Wound at tracheostomy site is covered with gauze and not observable. HEAD: Normocephalic. EYES: No scleral icterus. No injection or drainage. NECK: Supple, trachea midline. No lymphadenopathy. CARDIOVASCULAR: Regular rate and rhythm without murmurs, gallops, or rubs. RESPIRATORY: Breath sounds equal bilaterally. No rhonchi or wheezes note. No accessory muscle use. GASTROINTESTINAL: Abdomen soft, nondistended. Tenderness elicited all quadrants. MUSCULOSKELETAL: No cyanosis, or edema. PSYCHOLOGICAL: A&O x3, no overt signs/symptoms of depression. Anxiety noted.Speech is clear and fluent. Procedures 03/02/2017 - arterial line and central line placement. 03/25/2017 - central line placement and intubation 06/06/17 -PEG tube replaced (Dr. Estveez). Medications and IVs Current Medications Medications (Trade) Dose Ordered Sig/Mae Route Start Time Stop Time Status Last Admin (Tears Naturale Opth Soln) 1 drop TID EACH EYE 03/20/17 09:00 06/25/17 13:22 (Zofran Inj) 4 mg Q6H PRN IV 03/20/17 07:30 06/19/17 11:49 (Senokot) 17.2 mg Q12H PRN PO 03/20/17 07:30 (Bactroban Nasal 2% Oint) 1 applic Taper BID EACH NARE 03/20/17 09:00 03/16/18 08:59 06/26/17 20:51 (Lactinex) 1 tab TID PO 03/24/17 18:00 06/27/17 09:21 (NS Flush) UNSCH PRN IVF 03/25/17 10:15 06/23/17 20:12 (Peridex 0.12% Liq) 15 ml BID@08,20 MT 03/25/17 20:00 06/24/17 20:00 (Tylenol) 500 mg Q6H PRN PO 04/01/17 23:15 06/23/17 20:17 (Mycostatin Powder) 1 applic Q12HR TOPICAL 04/03/17 21:00 06/26/17 20:50 (Vitamin B1) 100 mg DAILY PO 04/05/17 09:00 06/27/17 09:21 (Ativan Inj) 1 mg Q2H PRN IV PUSH 04/13/17 11:00 04/19/17 17:41 (Mag-Ox) 800 mg UNSCH PRN PO 04/14/17 18:00 (Prevacid Odt) 30 mg DAILY NG 04/27/17 09:00 06/27/17 09:21 (Heparin Inj) 5,000 units Q12HR SQ 04/27/17 21:00 06/27/17 09:21 (Dakin'S 0.125% Soln) 100 ml DAILY TOPICAL 05/02/17 12:00 06/26/17 10:10 (Lactulose Liq) 30 ml Q12H PRN PO 05/10/17 17:00 06/19/17 13:05 (Benadryl Inj) 12.5 mg Q4H PRN IV 06/01/17 09:15 06/02/17 22:49 (Chloraseptic Ideal) 2 spray Q2H PRN OROPHARYNG 06/02/17 10:45 06/22/17 05:01 (K-Lyte Cl Eff) 25 meq DAILY NG 06/06/17 12:45 06/27/17 09:21 (Lasix) 20 mg DAILY PO 06/07/17 09:00 06/27/17 09:21 (Keppra) 1,000 mg Q12HR PO 06/09/17 09:00 06/27/17 09:21 (Desyrel) 75 mg HS PO 06/11/17 21:00 06/26/17 20:49 (Mucinex Er) 600 mg BID PO 06/15/17 21:00 06/27/17 09:21 (Msir) 15 mg Q4H PRN PO 06/16/17 08:45 06/26/17 21:12 Senna/Docusate Sodium 1 tab 1 tab DAILY PO 06/20/17 09:00 06/26/17 10:05 (Unasyn Inj/NS Inj) 100 ml @ 200 mls/hr Q6H IV 06/20/17 10:00 07/04/17 09:59 06/27/17 06:06 (Pyridium) 200 mg Q8HR PO 06/24/17 22:00 06/28/17 23:59 06/27/17 06:05 (Mycostatin Liq) 5 ml QID SWISH-SWAL 06/26/17 13:00 07/10/17 12:59 06/27/17 09:20 Urinary Catheter: Yes (condom catheter) Assessment to: Continue Johns insert reason: Prolonged Immobilization Date of Insertion: Jun 13, 2017 Date of Removal: Jun 13, 2017 A/P Problem List: (1) Chronic hyponatremia ICD Code: E87.1 Status: Acute (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 Sandhu is a 61 year old male with a history of alcohol abuse, severe hypernatremia who presented to the ED on 03/02/2017 due to worsening fatigue, weakness that started 13 days prior to this hospitalization. He was found to have significant delirium. He admitted to drinking alcohol as well as taking xanax as well. ED work up indicated Na 99, Bilirubin 8.9, Lactate 9.8, Ammonia 60, CK 7000, troponin 4.9, Creatinine 1.5, bicarb 13. His WBC was 12, Platelets 112, INR 1.9. Meld score 26. He was severely hydrated. Patient was started on isotonic saline in an effort to improve hypovolemia. Patients sodium corrected too rapidly. Patient was treated for distributive shock, alcohol withdrawal and electrolyte imbalances in the ICU. Throat swab/culture final results indicate Karl Albicans. Oral Nystatin tolerated. Abdominal xray ordered. Bladder scan ordered. If volume greater than 400 ml in bladder straight cath ordered. 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 Chronic severe hyponatremia Bilateral thalamic stroke Seizures - Continue Keppra 1000 mg PO every 12 hours. - Lorazepam 1 mg every 12 hours PO for seizures. Constipation. resolved - Continue scheduled Adele-Colace. - Follow clinically. Alcoholic liver disease Alcohol dependence Lower extremity thigh edema, improving - CT abdomen shows liver cirrhosis. - Continue folic acid and thiamine. - Furosemide 20 mg PO daily. - KCL eff 25 meq PO daily while on Lasix. - Monitor UO, electrolytes and intake closely while on diuretics. - PT and OT services continue, endurance is currently poor/highly limited. Acute hypoxemic and hypercapnic respiratory failure - Pulmonology following. - Status post tracheostomy on 04/16/2017. Encourage use of PMV as tolerated. - Continue Mucolytics and Mucinex. - Continue Duonebs scheduled. Depression Insomnia - Trazodone 75 mg PO HS; improved sleep reported. Monitor for over sedation. - Monitor for suicidal ideation. No suicidal ideation at this time. Upper respiratory bacterial infection, acute on chronic: Likely colonization and source of active infection. - Sputum culture growing Pseudomonas aeruginosa and Group D Enterococcus on 05/30/17. - Levaquin course completed. Urinary tract infection, reinfection. - Urine culture + Klebsiella pneumoniae and Enterococcus faecalis on . Ceftriaxone given and course completed. - Urine culture 06/15/17 growing Acinetobacter Baumannii/Haemol. Repeat urine culture ordered and pending. CBC reviewed today, WBC increased to 12.4. Afebrile. Continue Unasyn 3 g IV q6h (Start 06/20- end 07/04). Prolonged immobility: Continue PT. Continue stretcher chair. Chronic pain: Continue Morphine IR 15 mg q 4hrs. PEG site infection, resolved. - PEG site culture growing pseudomonas and Group D Enterococcus on 06/01/17. Removed and status post replacement 06/06/17. - Speech following patient, tolerating PO intake. Recommendations for mechanical soft and thin liquids. Monitor PO intake closely. Monitor for aspiration. - Levaquin (started 06/01/17 - stopped 06/08/17) for infected PEG site. Pharyngitis Karl Albicans: -Chloraseptic spray -Oral Nystatin GI prophylaxis: Prevacid DVT Prophylaxis: Heparin Full code. Case discussed with pt, RN, and Dr. Harman. Discharge Planning Discharge Planning continues to pursue placement at [place]. Kevyn Milan Jr. Jun 27, 2017 09:42
--- NOTE | 2017-06-27 11:27 | RADRPT ---
EXAM DATE/TIME: 06/27/2017 10:07 [facility] COMPARISON: ABDOMEN SINGLE VIEW, April 13, 2017, 10:36. INDICATIONS : Abdomen pain. MEDICAL HISTORY : Cirrhosis. Diverticulosis. Seizures.Hiatal hernia SURGICAL HISTORY : None. ENCOUNTER: Subsequent ACUITY: 1 week PAIN SCORE: 8/10 LOCATION: Abdomen. FINDINGS: Examination of the abdomen demonstrates a normal bowel gas pattern. No free air is identified. No o rganomegaly is evident. Osseous structures are intact. CONCLUSION: No evidence of obstruction. Shyam Cobb MD on June 27, 2017 at 11:24 Board Certified Radiologist. This report was verified electronically.
[2017-06-27] MEDS: NYSTATIN 100,000 U/GM PWD 15 GM BTL TOPICAL SCH ×2 (15:14→20:37)
[2017-06-27] MEDS: traZODone HCL 50 MG TAB PO SCH (20:36)
[2017-06-28] VITALS (8 sets, daily range): BP systolic 93–111; BP diastolic 51–62; PULSE 76–86; RESP 18; TEMP 98–98.7; O2SAT 90–98
[2017-06-28] MEDS: AMPICILLIN-SULBACTAM INJ 3 GM in SODIUM CHLORIDE 0.9% INJ 100 ML IV SCH ×4 (04:43→21:05)
[2017-06-28] MEDS: PHENAZOPYRIDINE HCL 200 MG TAB PO SCH ×3 (04:43→21:05)
[2017-06-28] MEDS: THIAMINE HCL 100 MG TAB PO SCH (07:59)
[2017-06-28] MEDS: CHLORHEXIDINE 0.12% (ORAL KIT) 15 ML CUP MT SCH ×2 (08:00→20:00)
[2017-06-28] MEDS: HEPARIN SODIUM - SQ 10,000 UNITS/ML VIAL SQ SCH ×2 (08:05→21:06)
[2017-06-28] MEDS: levETIRAcetam 500 MG TAB PO SCH ×2 (08:05→21:05)
[2017-06-28] MEDS: guaiFENesin E.R. 600 MG TAB PO SCH ×2 (08:05→21:05)
[2017-06-28] MEDS: LANSOPRAZOLE SOLUTAB 30 MG TAB NG SCH (08:05)
[2017-06-28] MEDS: POTASSIUM CHLORIDE 25 MEQ EFFERVESCENT TAB NG SCH (08:06)
[2017-06-28] MEDS: LACTOBACILLUS ACIDOPHILUS TAB PO SCH ×3 (08:06→18:00)
[2017-06-28] MEDS: NYSTATIN SUSP 500,000 U/5 ML CUP SWISH-SWAL SCH ×3 (08:06→21:07)
[2017-06-28] MEDS: FUROSEMIDE 20 MG TAB PO SCH (08:06)
[2017-06-28] MEDS: DOCUSATE SODIUM 50 MG/SENNA 8.6 MG TAB PO SCH (08:09)
[2017-06-28] MEDS: NYSTATIN 100,000 U/GM PWD 15 GM BTL TOPICAL SCH ×2 (09:00→21:00)
[2017-06-28] MEDS: ARTIFICIAL TEARS OPTH SOLN 15 ML BTL EACH EYE SCH ×3 (09:00→18:00)
[2017-06-28] MEDS: MUPIROCIN 2% OINT 1 APPLIC/GM SYR EACH NARE SCH ×2 (09:00→21:06)
--- NOTE | 2017-06-28 12:12 | HHI.PR ---
Subjective Remarks NO SOB O2 SAT ADEQUATE Objective Vital Signs Date Time Temp Pulse Resp B/P Pulse Ox O2 Delivery O2 Flow Rate FiO2 06/28/17 08:00 98.5 83 18 95/54 90 06/28/17 04:00 98.4 86 18 97/62 95 06/28/17 00:00 98.7 81 18 93/51 94 06/28/17 00:00 Trach Collar 2.00 06/27/17 21:51 20 06/27/17 20:35 Trach Collar 2.00 06/27/17 20:00 98.7 81 18 122/71 94 06/27/17 20:00 78 06/27/17 16:00 99.1 86 18 109/67 96 I/O 06/27/17 06/27/17 06/27/17 06/28/17 06/28/17 06/28/17 07:00 15:00 23:00 07:00 15:00 23:00 Intake Total 716 ml 240 ml 1241 ml Output Total 175 ml 1100 ml 15.0 ml 425 ml Balance 541 ml -860 ml -15.0 ml 816 ml Intake Oral 240 ml 360 ml IV Total 100 ml 208 ml Tube Feeding 566 ml 673 ml Tube Irrigant 50 ml Output Urine Total 175 ml 1100 ml 425 ml Tube Feeding Residual Discard 15.0 ml Bladder Scan Volume Amount 650 ml 609 ml # Bowel Movements 0 6 Objective Remarks GENERAL: SKIN: Warm and dry. HEAD: Atraumatic. Normocephalic. EYES: Pupils equal and round. No scleral icterus. No injection or drainage. ENT: No nasal bleeding or discharge. Mucous membranes pink and moist. NECK: Trachea midline. No JVD. CARDIOVASCULAR: Regular rate and rhythm. RESPIRATORY: No accessory muscle use. Clear to auscultation. Breath sounds equal bilaterally. GASTROINTESTINAL: Abdomen soft, non-tender, nondistended. Hepatic and splenic margins not palpable. MUSCULOSKELETAL: Extremities without clubbing, cyanosis, or edema. No obvious deformities. NEUROLOGICAL: Awake and alert. No obvious cranial nerve deficits. Motor grossly within normal limits. Five out of 5 muscle strength in the arms and legs. Normal speech. PSYCHIATRIC: Appropriate mood and affect; insight and judgment normal. Assessment and Plan Assessment and Plan ASS RESPIRATORY FAIURE, IMPROVED PNA , IMPROVED ETOH LIVER DISEASE PLAN O2 NEEDED PULMONARY TOILET F/U CXRAY Dale,Dale Wadie MD Jun 28, 2017 12:12
[2017-06-28 12:52] LABS: C. DIFF TOXIN PCR POSITIVE (NEGATIVE)
[2017-06-28 12:55] LABS: C. DIFF EPI 027 PRESUMPTIVE NEGATIVE (NEGATIVE)
[2017-06-28] MEDS: SODIUM HYPOCHLORITE 0.125% 500 ML BTL TOPICAL SCH (14:05)
--- NOTE | 2017-06-28 14:28 | RADRPT ---
EXAM DATE/TIME: 06/28/2017 13:11 [facility] COMPARISON: CHEST SINGLE AP, May 16, 2017, 12:56. INDICATIONS : Pneumonia. MEDICAL HISTORY : Cirrhosis. Diverticulosis. Seizures.Hiatal hernia SURGICAL HISTORY : None. ENCOUNTER: Subsequent ACUITY: 3 months PAIN SCORE: 0/10 LOCATION: Bilateral chest FINDINGS: Tracheostomy tube is present in satisfactory position. There is hazy opacity left lung base right raisa g is grossly clear. The rest of the examination has not significantly changed. CONCLUSION: Improvement in aeration of the lungs probably improving pulmonary edema with residual hazy opacity le ft lung base. Bety Castillo MD on June 28, 2017 at 14:26 Board Certified Radiologist. This report was verified electronically.
[2017-06-28] MEDS: MORPHINE SULFATE 15 MG TAB PO PRN ×2 (15:38→21:11)
--- NOTE | 2017-06-28 15:45 | HHI.PR ---
Subjective Remarks Follow-up for hyponatremia, osmotic demyelination syndrome, debilitation. Patient seen and examined. Awake and alert. Feeling better. Sore throat improved. Denies any other complaint. Denies any recent fever, chills, cough, n/v, diarrhea, or bloody urine or stool. Per RN ([facility]) pt with diarrhea, had to be straight cathed over night due to urinary retention. Otherwise has not had acute issues overnight or since start of shift. Objective Vitals Vital Signs Date Time Temp Pulse Resp B/P Pulse Ox O2 Delivery O2 Flow Rate FiO2 06/28/17 12:00 98.6 78 18 100/58 98 06/28/17 08:45 95 Nasal Cannula 3.00 06/28/17 08:00 98.5 83 18 95/54 90 06/28/17 04:00 98.4 86 18 97/62 95 06/28/17 00:00 98.7 81 18 93/51 94 06/28/17 00:00 Trach Collar 2.00 06/27/17 21:51 20 06/27/17 20:35 Trach Collar 2.00 06/27/17 20:00 98.7 81 18 122/71 94 06/27/17 20:00 78 06/27/17 16:00 99.1 86 18 109/67 96 I/O 06/27/17 06/27/17 06/27/17 06/28/17 06/28/17 06/28/17 06:59 14:59 22:59 06:59 14:59 22:59 Intake Total 716 ml 240 ml 1241 ml Output Total 175 ml 1100 ml 15.0 ml 425 ml Balance 541 ml -860 ml -15.0 ml 816 ml Intake Oral 240 ml 360 ml IV Total 100 ml 208 ml Tube Feeding 566 ml 673 ml Tube Irrigant 50 ml Output Urine Total 175 ml 1100 ml 425 ml Tube Feeding Residual Discard 15.0 ml Bladder Scan Volume Amount 650 ml 609 ml # Bowel Movements 0 6 Objective Remarks GENERAL: Laying abed, in NAD. Pt speaking as t-tube is capped. PMV is in place. SKIN: Warm and dry. Wound at tracheostomy site is covered with gauze and not observable. HEAD: Normocephalic. EYES: No scleral icterus. No injection or drainage. NECK: Supple, trachea midline. No lymphadenopathy. CARDIOVASCULAR: Regular rate and rhythm without murmurs, gallops, or rubs. RESPIRATORY: Breath sounds equal bilaterally. No wheezes note. Rhonchi present. No accessory muscle use. GASTROINTESTINAL: Abdomen soft, nondistended. No tenderness elicited. MUSCULOSKELETAL: No cyanosis, or edema. PSYCHOLOGICAL: A&O x3, no overt signs/symptoms of depression and/or anxiety.Speech is clear and fluent. Procedures 03/02/2017 - arterial line and central line placement. 03/25/2017 - central line placement and intubation 06/06/17 -PEG tube replaced (Dr. Estevez). Medications and IVs Current Medications Medications (Trade) Dose Ordered Sig/Mae Route Start Time Stop Time Status Last Admin (Tears Naturale Opth Soln) 1 drop TID EACH EYE 03/20/17 09:00 06/28/17 13:00 (Zofran Inj) 4 mg Q6H PRN IV 03/20/17 07:30 06/19/17 11:49 (Senokot) 17.2 mg Q12H PRN PO 03/20/17 07:30 (Bactroban Nasal 2% Oint) Taper BID EACH NARE 03/20/17 09:00 03/16/18 08:59 06/28/17 09:00 (Lactinex) 1 tab TID PO 03/24/17 18:00 06/28/17 14:06 (NS Flush) UNSCH PRN IVF 03/25/17 10:15 06/23/17 20:12 (Peridex 0.12% Liq) 15 ml BID@08,20 MT 03/25/17 20:00 06/24/17 20:00 (Tylenol) 500 mg Q6H PRN PO 04/01/17 23:15 06/23/17 20:17 (Mycostatin Powder) 1 applic Q12HR TOPICAL 04/03/17 21:00 06/28/17 09:00 (Vitamin B1) 100 mg DAILY PO 04/05/17 09:00 06/28/17 07:59 (Ativan Inj) 1 mg Q2H PRN IV PUSH 04/13/17 11:00 04/19/17 17:41 (Mag-Ox) 800 mg UNSCH PRN PO 04/14/17 18:00 (Prevacid Odt) 30 mg DAILY NG 04/27/17 09:00 06/28/17 08:05 (Heparin Inj) 5,000 units Q12HR SQ 04/27/17 21:00 06/28/17 08:05 (Dakin'S 0.125% Soln) 100 ml DAILY TOPICAL 05/02/17 12:00 06/28/17 14:05 (Lactulose Liq) 30 ml Q12H PRN PO 05/10/17 17:00 06/19/17 13:05 (Benadryl Inj) 12.5 mg Q4H PRN IV 06/01/17 09:15 06/02/17 22:49 (Chloraseptic [place]) 2 spray Q2H PRN OROPHARYNG 06/02/17 10:45 06/22/17 05:01 (K-Lyte Cl Eff) 25 meq DAILY NG 06/06/17 12:45 06/28/17 08:06 (Lasix) 20 mg DAILY PO 06/07/17 09:00 06/28/17 08:06 (Keppra) 1,000 mg Q12HR PO 06/09/17 09:00 06/28/17 08:05 (Desyrel) 75 mg HS PO 06/11/17 21:00 06/27/17 20:36 (Mucinex Er) 600 mg BID PO 06/15/17 21:00 06/28/17 08:05 (Msir) 15 mg Q4H PRN PO 06/16/17 08:45 06/27/17 20:49 Senna/Docusate Sodium 1 tab 1 tab DAILY PO 06/20/17 09:00 06/26/17 10:05 (Unasyn Inj/NS Inj) 100 ml @ 200 mls/hr Q6H IV 06/20/17 10:00 07/04/17 09:59 06/28/17 10:00 (Pyridium) 200 mg Q8HR PO 06/24/17 22:00 06/28/17 23:59 06/28/17 14:06 (Mycostatin Liq) 5 ml QID SWISH-SWAL 06/26/17 13:00 07/10/17 12:59 06/28/17 14:05 Urinary Catheter: Yes Assessment to: Continue Johns insert reason: Obstruction/Retention Date of Insertion: Jun 13, 2017 Date of Removal: Jun 13, 2017 A/P Problem List: (1) Chronic hyponatremia ICD Code: E87.1 Status: Acute (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 Sandhu is a 61 year old male with a history of alcohol abuse, severe hypernatremia who presented to the ED on 03/02/2017 due to worsening fatigue, weakness that started 13 days prior to this hospitalization. He was found to have significant delirium. He admitted to drinking alcohol as well as taking xanax as well. ED work up indicated Na 99, Bilirubin 8.9, Lactate 9.8, Ammonia 60, CK 7000, troponin 4.9, Creatinine 1.5, bicarb 13. His WBC was 12, Platelets 112, INR 1.9. Meld score 26. He was severely hydrated. Patient was started on isotonic saline in an effort to improve hypovolemia. Patients sodium corrected too rapidly. Patient was treated for distributive shock, alcohol withdrawal and electrolyte imbalances in the ICU. Continue straight cath of bladder for bladder volume greater than 450. C.diff test positive. 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 Chronic severe hyponatremia Bilateral thalamic stroke Seizures - Continue Keppra 1000 mg PO every 12 hours. - Lorazepam 1 mg every 12 hours PO for seizures. Constipation. resolved - Continue scheduled Adele-Colace. - Follow clinically. Alcoholic liver disease Alcohol dependence Lower extremity thigh edema, improving - CT abdomen shows liver cirrhosis. - Continue folic acid and thiamine. - Furosemide 20 mg PO daily. - KCL eff 25 meq PO daily while on Lasix. - Monitor UO, electrolytes and intake closely while on diuretics. - PT and OT services continue, endurance is currently poor/highly limited. Acute hypoxemic and hypercapnic respiratory failure - Pulmonology following. - Status post tracheostomy on 04/16/2017. Encourage use of PMV as tolerated. - Continue Mucolytics and Mucinex. - Continue Duonebs scheduled. Depression Insomnia - Trazodone 75 mg PO HS; improved sleep reported. Monitor for over sedation. - Monitor for suicidal ideation. No suicidal ideation at this time. Upper respiratory bacterial infection, acute on chronic: Likely colonization and source of active infection. - Sputum culture growing Pseudomonas aeruginosa and Group D Enterococcus on 05/30/17. - Levaquin course completed. Urinary tract infection, reinfection. - Urine culture + Klebsiella pneumoniae and Enterococcus faecalis on . Ceftriaxone given and course completed. - Urine culture 06/15/17 growing Acinetobacter Baumannii/Haemol. Repeat urine culture ordered and pending. CBC reviewed today, WBC increased to 12.4. Afebrile. Continue Unasyn 3 g IV q6h (Start 06/20- end 07/04). Prolonged immobility: Continue PT. Continue stretcher chair. Chronic pain: Continue Morphine IR 15 mg q 4hrs. PEG site infection, resolved. - PEG site culture growing pseudomonas and Group D Enterococcus on 06/01/17. Removed and status post replacement 06/06/17. - Speech following patient, tolerating PO intake. Recommendations for mechanical soft and thin liquids. Monitor PO intake closely. Monitor for aspiration. - Levaquin (started 06/01/17 - stopped 06/08/17) for infected PEG site. Pharyngitis Nuvia Albicans: -Chloraseptic spray -Oral Nystatin C. Diff -Flagyl 500 mg TID (stop date:07/08/17) GI prophylaxis: Prevacid DVT Prophylaxis: Heparin Full code. Case discussed with pt, RN, and Dr. Harman. Discharge Planning Discharge Planning continues to pursue placement at [place]. Kevyn Milan Jr. Jun 28, 2017 15:45
[2017-06-28] MEDS: metroNIDAZOLE 500 MG TAB PO SCH ×2 (16:38→21:05)
--- NOTE | 2017-06-28 18:52 | PD.WCN.NOT ---
Wound Consult Description: Sacral/Coccyx wound stage 4 follow up Communicated with: TI[facility]RA [facility]ura Recommendation: Continue dressing changes as ordered for sacral wound for now will reevaluate patient next week Additional Information: Patient seen on [facility] for follow up of sacral/coccyx stage 4 pressure injury. Patient turned to R side with assistance of Sammie ventura and teletypewriter installer. Patient's wound is open to air. Wound presents with 90% pale red granulated tissue and 10 % pale red hypergranulated tissue.Periwound is unremarkable. Cleansed wound with normal saline.Wound measures 3cm x 3.1cm x 0.7 cm.Applied Dakin's moistened 2x2 gauze pad loosely packed into wound bed. Applied skin prep before applying small bordered gauze dressing over wound.Wound has improved since previous assessment. Will reassess patient next week for new dressing change order recommendations Esperanza Romano [facility] Jun 28, 2017 18:52
[2017-06-28] MEDS: traZODone HCL 50 MG TAB PO SCH (21:05)
[2017-06-29] VITALS (8 sets, daily range): BP systolic 93–114; BP diastolic 54–64; PULSE 59–82; RESP 16–19; TEMP 97.2–99; O2SAT 92–99
[2017-06-29] MEDS: MORPHINE SULFATE 15 MG TAB PO PRN ×3 (01:15→20:39)
[2017-06-29] MEDS: AMPICILLIN-SULBACTAM INJ 3 GM in SODIUM CHLORIDE 0.9% INJ 100 ML IV SCH ×4 (04:57→20:39)
[2017-06-29] MEDS: metroNIDAZOLE 500 MG TAB PO SCH ×3 (04:57→20:38)
[2017-06-29] MEDS: CHLORHEXIDINE 0.12% (ORAL KIT) 15 ML CUP MT SCH ×2 (08:00→20:00)
[2017-06-29] MEDS: DOCUSATE SODIUM 50 MG/SENNA 8.6 MG TAB PO SCH (09:00)
[2017-06-29] MEDS: MUPIROCIN 2% OINT 1 APPLIC/GM SYR EACH NARE SCH ×2 (09:54→20:38)
[2017-06-29] MEDS: LANSOPRAZOLE SOLUTAB 30 MG TAB NG SCH (09:55)
[2017-06-29] MEDS: POTASSIUM CHLORIDE 25 MEQ EFFERVESCENT TAB NG SCH (09:55)
[2017-06-29] MEDS: levETIRAcetam 500 MG TAB PO SCH ×2 (09:56→20:38)
[2017-06-29] MEDS: guaiFENesin E.R. 600 MG TAB PO SCH ×2 (09:56→20:38)
[2017-06-29] MEDS: FUROSEMIDE 20 MG TAB PO SCH (09:56)
[2017-06-29] MEDS: THIAMINE HCL 100 MG TAB PO SCH (09:56)
[2017-06-29] MEDS: LACTOBACILLUS ACIDOPHILUS TAB PO SCH ×3 (09:56→18:12)
[2017-06-29] MEDS: HEPARIN SODIUM - SQ 10,000 UNITS/ML VIAL SQ SCH ×2 (09:57→20:39)
[2017-06-29] MEDS: NYSTATIN SUSP 500,000 U/5 ML CUP SWISH-SWAL SCH ×4 (09:58→20:38)
[2017-06-29] MEDS: ARTIFICIAL TEARS OPTH SOLN 15 ML BTL EACH EYE SCH ×3 (09:58→18:16)
[2017-06-29] MEDS: SODIUM HYPOCHLORITE 0.125% 500 ML BTL TOPICAL SCH (09:58)
[2017-06-29] MEDS: NYSTATIN 100,000 U/GM PWD 15 GM BTL TOPICAL SCH ×2 (09:59→20:40)
--- NOTE | 2017-06-29 12:00 | HHI.PR ---
Subjective Remarks Follow-up for hyponatremia, osmotic demyelination syndrome, debilitation. Patient seen and examined. Awake and alert. Feeling better. Sore throat continues, and "a bit better." Diarrhea "is gone." Dysuria is gone. Pt reported wound care came and saw him yesterday; reported wound is "getting better." Denies any other complaint. Denies any recent fever, chills, cough, n/v, diarrhea, or bloody urine or stool. Per RN (Citlaly) pt with diarrhea, not requiring straight catheterization over night. Otherwise has not had acute issues overnight or since start of shift. Objective Vitals Vital Signs Date Time Temp Pulse Resp B/P Pulse Ox O2 Delivery O2 Flow Rate FiO2 06/29/17 08:00 97.2 70 18 114/64 99 06/29/17 04:00 97.6 61 16 93/54 97 06/29/17 04:00 Trach Collar 6.00 28 06/29/17 02:22 18 06/29/17 00:00 97.8 70 18 93/58 96 06/29/17 00:00 Trach Collar 6.00 28 06/28/17 21:00 Trach Collar 28 06/28/17 20:00 76 06/28/17 20:00 98.0 76 18 104/61 97 06/28/17 17:17 96 Nasal Cannula 3.00 06/28/17 16:00 98.7 76 18 111/62 96 06/28/17 12:00 98.6 78 18 100/58 98 I/O 06/28/17 06/28/17 06/28/17 06/29/17 06/29/17 06/29/17 07:00 15:00 23:00 07:00 15:00 23:00 Intake Total 1241 ml 973 ml Output Total 425 ml 700 ml 400 ml 200 ml Balance 816 ml -700 ml -400 ml 773 ml Intake Oral 360 ml IV Total 208 ml 200 ml Tube Feeding 673 ml 773 ml Output Urine Total 425 ml 700 ml 400 ml 200 ml Tube Feeding Residual Discard 0 ml Bladder Scan Volume Amount 609 ml 360 ml # Bowel Movements 5 Imaging Last Impressions Chest X-Ray 06/28/17 0000 Signed Impressions: Service Date/Time: Wednesday, June 28, 2017 13:11 - CONCLUSION: Improvement in aeration of the lungs probably improving pulmonary edema with residual hazy opacity left lung base. Bety Castillo MD Abdomen X-Ray 06/27/17 Signed Impressions: Service Date/Time: June 10:07 - CONCLUSION: No evidence of obstruction. Shyam Cobb MD Abdomen/Pelvis CT 05/08/17 Signed Impressions: Service Date/Time: Monday, May 08, 2017 23:10 - CONCLUSION: Significant fluid throughout the abdomen and the pelvis with what appears to be a cirrhotic appearing liver and splenomegaly. There is significant small bowel wall thickening throughout the lower abdomen and the upper pelvis without evidence of obstruction Milo Muhammad MD Liver Ultrasound 04/15/17 Signed Impressions: Service Date/Time: Saturday, April 15, 2017 09:24 - CONCLUSION: 1. Abnormal appearance of the pancreas with a nonspecific hypoechoic area involving the posterior part of the pancreas along the head and body region. Recommend CT scan of the abdomen with oral and IV contrast further evaluation. 2. Fatty infiltration throughout the liver. 3. There is thickening of the gallbladder wall at 6 mm. This is suggestive of chronic gallbladder disease. 4. Small amount of free fluid adjacent to the liver and spleen in the upper abdomen.. 5. Right-sided pleural effusion. Víctor Rosas MD Head CT 04/12/17 0000 Signed Impressions: Service Date/Time: Wednesday, April 12, 2017 21:30 - CONCLUSION: Pontine encephalomalacia. Left mastoiditis. Casper Alva MD Head Magnetic Resonance Angiography 03/28/17 0000 Signed Impressions: Service Date/Time: March 17:22 - CONCLUSION: Unremarkable examination. Bety Castillo MD Brain MRI 03/28/17 0000 Signed Impressions: Service Date/Time: March 17:22 - CONCLUSION: 1. 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 Small subacute ischemic bilateral thalamic infarcts. 2. There has been no significant change when compared to the prior exam. Yinka Harman MD Lower Extremity Ultrasound 03/25/17 0000 Signed Impressions: Service Date/Time: Saturday, March 25, 2017 22:17 - CONCLUSION: No evidence of DVT. Víctor Rosas MD CT Angiography 03/21/17 0000 Signed Impressions: Service Date/Time: March 00:33 - CONCLUSION: No evidence of pulmonary embolism is identified. Mild atelectasis left lung base. Fluid or phlegm within the trachea. Milo Muhammad MD Abdomen Ultrasound 03/20/17 0000 Signed Impressions: Service Date/Time: Monday, March 20, 2017 11:38 - CONCLUSION: 1. Hepatosplenomegaly without focal lesion. 2. Probable sludge within the lumen of the gallbladder. No intrahepatic duct. Cheo Martínez MD Shoulder X-Ray 03/02/17 1404 Signed Impressions: Service Date/Time: Thursday, March 02, 2017 15:18 - CONCLUSION: No evidence of recent bony injury. Deformity of the lateral left clavicle suggests old healed trauma. Cheo Martínez MD Maxillofacial CT 03/02/17 1342 Signed Impressions: Service Date/Time: Thursday, March 02, 2017 14:52 - CONCLUSION: Negative CT of the facial bones. Cheo Martínez MD Chest CT 03/02/17 1342 Signed Impressions: Service Date/Time: Thursday, March 02, 2017 15:04 - CONCLUSION: 1. Abnormal appearance of the lateral left clavicle suggesting a combination of acute and chronic bony injury. Fracture lucencies without bridging callus is seen the region of the coracoid process. 2. The lungs are clear. No evidence of pneumothorax. 3. Moderate size hiatus hernia. Cheo Martínez MD Cervical Spine CT 03/02/17 1342 Signed Impressions: Service Date/Time: Thursday, March 02, 2017 14:52 - CONCLUSION: Negative CT cervical spine. Cheo Martínez MD Objective Remarks GENERAL: Laying abed, in NAD. Pt speaking as t-tube is capped. PMV is in place. SKIN: Warm and dry. Wound at tracheostomy site is healing, no crust, erythema observed. HEAD: Normocephalic. EYES: No scleral icterus. No injection or drainage. NECK: Supple, trachea midline. No lymphadenopathy. CARDIOVASCULAR: Regular rate and rhythm without murmurs, gallops, or rubs. RESPIRATORY: Breath sounds equal bilaterally. No wheezes note. Rhonchi present. No accessory muscle use. GASTROINTESTINAL: Abdomen soft, nondistended. No tenderness elicited. MUSCULOSKELETAL: No cyanosis, or edema. PSYCHOLOGICAL: A&O x3, no overt signs/symptoms of depression and/or anxiety.Speech is clear and fluent. Procedures 03/02/2017 - arterial line and central line placement. 03/25/2017 - central line placement and intubation 06/06/17 -PEG tube replaced (Dr. Estevez). Medications and IVs Current Medications Medications (Trade) Dose Ordered Sig/Mae Route Start Time Stop Time Status Last Admin (Tears Naturale Opth Soln) 1 drop TID EACH EYE 03/20/17 09:00 06/29/17 09:58 (Zofran Inj) 4 mg Q6H PRN IV 03/20/17 07:30 06/19/17 11:49 (Senokot) 17.2 mg Q12H PRN PO 03/20/17 07:30 (Bactroban Nasal 2% Oint) Taper BID EACH NARE 03/20/17 09:00 03/16/18 08:59 06/29/17 09:54 (Lactinex) 1 tab TID PO 03/24/17 18:00 06/29/17 09:56 (NS Flush) UNSCH PRN IVF 03/25/17 10:15 06/23/17 20:12 (Peridex 0.12% Liq) 15 ml BID@08,20 MT 03/25/17 20:00 06/24/17 20:00 (Tylenol) 500 mg Q6H PRN PO 04/01/17 23:15 06/23/17 20:17 (Mycostatin Powder) 1 applic Q12HR TOPICAL 04/03/17 21:00 06/29/17 09:59 (Vitamin B1) 100 mg DAILY PO 04/05/17 09:00 06/29/17 09:56 (Ativan Inj) 1 mg Q2H PRN IV PUSH 04/13/17 11:00 04/19/17 17:41 (Mag-Ox) 800 mg UNSCH PRN PO 04/14/17 18:00 (Prevacid Odt) 30 mg DAILY NG 04/27/17 09:00 06/29/17 09:55 (Heparin Inj) 5,000 units Q12HR SQ 04/27/17 21:00 06/29/17 09:57 (Dakin'S 0.125% Soln) 100 ml DAILY TOPICAL 05/02/17 12:00 06/29/17 09:58 (Lactulose Liq) 30 ml Q12H PRN PO 05/10/17 17:00 06/19/17 13:05 (Benadryl Inj) 12.5 mg Q4H PRN IV 06/01/17 09:15 06/02/17 22:49 (Chloraseptic [place]) 2 spray Q2H PRN OROPHARYNG 06/02/17 10:45 06/22/17 05:01 (K-Lyte Cl Eff) 25 meq DAILY NG 06/06/17 12:45 06/29/17 09:55 (Lasix) 20 mg DAILY PO 06/07/17 09:00 06/29/17 09:56 (Keppra) 1,000 mg Q12HR PO 06/09/17 09:00 06/29/17 09:56 (Desyrel) 75 mg HS PO 06/11/17 21:00 06/28/17 21:05 (Mucinex Er) 600 mg BID PO 06/15/17 21:00 06/29/17 09:56 (Msir) 15 mg Q4H PRN PO 06/16/17 08:45 06/29/17 01:15 Senna/Docusate Sodium 1 tab 1 tab DAILY PO 06/20/17 09:00 06/26/17 10:05 (Unasyn Inj/NS Inj) 100 ml @ 200 mls/hr Q6H IV 06/20/17 10:00 07/04/17 09:59 06/29/17 09:57 (Mycostatin Liq) 5 ml QID SWISH-SWAL 06/26/17 13:00 07/10/17 12:59 06/29/17 09:58 (Flagyl) 500 mg Q8HR PO 06/28/17 16:00 07/08/17 15:59 06/29/17 04:57 Urinary Catheter: Yes Assessment to: Continue Johns insert reason: Prolonged Immobilization Date of Insertion: Jun 13, 2017 A/P Problem List: (1) Chronic hyponatremia ICD Code: E87.1 Status: Acute (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 Sandhu is a 61 year old male with a history of alcohol abuse, severe hypernatremia who presented to the ED on 03/02/2017 due to worsening fatigue, weakness that started 13 days prior to this hospitalization. He was found to have significant delirium. He admitted to drinking alcohol as well as taking xanax as well. ED work up indicated Na 99, Bilirubin 8.9, Lactate 9.8, Ammonia 60, CK 7000, troponin 4.9, Creatinine 1.5, bicarb 13. His WBC was 12, Platelets 112, INR 1.9. Meld score 26. He was severely hydrated. Patient was started on isotonic saline in an effort to improve hypovolemia. Patients sodium corrected too rapidly. Patient was treated for distributive shock, alcohol withdrawal and electrolyte imbalances in the ICU. Pt tolerating Flagyl for C. Diff and oral Nystatin for Thrush. Pyridium discontinued. Wound care note reviewed. 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 Chronic severe hyponatremia Bilateral thalamic stroke Seizures - Continue Keppra 1000 mg PO every 12 hours. - Lorazepam 1 mg every 12 hours PO for seizures. Constipation. resolved - Continue scheduled Adele-Colace. - Follow clinically. Alcoholic liver disease Alcohol dependence Lower extremity thigh edema, improving - CT abdomen shows liver cirrhosis. - Continue folic acid and thiamine. - Furosemide 20 mg PO daily. - KCL eff 25 meq PO daily while on Lasix. - Monitor UO, electrolytes and intake closely while on diuretics. - PT and OT services continue, endurance is currently poor/highly limited. Acute hypoxemic and hypercapnic respiratory failure - Pulmonology following. - Status post tracheostomy on 04/16/2017. Encourage use of PMV as tolerated. - Continue Mucolytics and Mucinex. - Continue Duonebs scheduled. Depression Insomnia - Trazodone 75 mg PO HS; improved sleep reported. Monitor for over sedation. - Monitor for suicidal ideation. No suicidal ideation at this time. Upper respiratory bacterial infection, acute on chronic: Likely colonization and source of active infection. - Sputum culture growing Pseudomonas aeruginosa and Group D Enterococcus on 05/30/17. - Levaquin course completed. Urinary tract infection, reinfection. - Urine culture + Klebsiella pneumoniae and Enterococcus faecalis on . Ceftriaxone given and course completed. - Urine culture 06/15/17 growing Acinetobacter Baumannii/Haemol. Repeat urine culture ordered and pending. CBC reviewed today, WBC increased to 12.4. Afebrile. Continue Unasyn 3 g IV q6h (Start 06/20- end 07/04). Prolonged immobility: Continue PT. Continue stretcher chair. Chronic pain: Continue Morphine IR 15 mg q 4hrs. PEG site infection, resolved. - PEG site culture growing pseudomonas and Group D Enterococcus on 06/01/17. Removed and status post replacement 06/06/17. - Speech following patient, tolerating PO intake. Recommendations for mechanical soft and thin liquids. Monitor PO intake closely. Monitor for aspiration. - Levaquin (started 06/01/17 - stopped 06/08/17) for infected PEG site. Pharyngitis Nuvia Albicans: -Chloraseptic spray -Oral Nystatin C. Diff -Flagyl 500 mg TID (stop date:07/08/17) GI prophylaxis: Prevacid DVT Prophylaxis: Heparin Full code. Case discussed with pt, RN, and Dr. Harman. Discharge Planning Discharge Planning CM continues to pursue placement at [facility]. Kevyn Milan Jr. Jun 29, 2017 12:00
--- NOTE | 2017-06-29 15:05 | HHI.PR ---
Subjective Remarks 61 YOWM with RF, s/p trach removal no fever no new complaint Objective Vital Signs Vital Signs Date Time Temp Pulse Resp B/P Pulse Ox O2 Delivery O2 Flow Rate FiO2 06/29/17 12:00 97.6 79 18 113/60 99 06/29/17 08:45 98 Nasal Cannula 3.00 06/29/17 08:35 96 Trach Collar 2.00 28 06/29/17 08:00 97.2 70 18 114/64 99 06/29/17 08:00 59 06/29/17 04:00 97.6 61 16 93/54 97 06/29/17 04:00 Trach Collar 6.00 28 06/29/17 02:22 18 06/29/17 00:00 97.8 70 18 93/58 96 06/29/17 00:00 Trach Collar 6.00 06/28/17 21:00 Trach Collar 28 06/28/17 20:00 76 06/28/17 20:00 98.0 76 18 104/61 97 06/28/17 17:17 96 Nasal Cannula 3.00 06/28/17 16:00 98.7 76 18 111/62 96 I/O 06/28/17 06/28/17 06/28/17 06/29/17 06/29/17 06/29/17 07:00 15:00 23:00 07:00 15:00 23:00 Intake Total 1241 ml 973 ml Output Total 425 ml 700 ml 400 ml 200 ml Balance 816 ml -700 ml -400 ml 773 ml Intake Oral 360 ml IV Total 208 ml 200 ml Tube Feeding 673 ml 773 ml Output Urine Total 425 ml 700 ml 400 ml 200 ml Tube Feeding Residual Discard 0 ml Bladder Scan Volume Amount 609 ml 360 ml # Bowel Movements 5 Objective Remarks GENERAL: MBMN WM, NAD SKIN: Warm and dry. HEAD: Normocephalic. EYES: No scleral icterus. No injection or drainage. NECK: Supple, trachea midline. No JVD or lymphadenopathy. has Trach CARDIOVASCULAR: Regular rate and rhythm without murmurs, gallops, or rubs. RESPIRATORY: Breath sounds equal bilaterally. No accessory muscle use. GASTROINTESTINAL: Abdomen soft, non-tender, nondistended. MUSCULOSKELETAL: No cyanosis, or edema. BACK: Nontender without obvious deformity. No CVA tenderness. A/P Assessment and Plan RF,S/P Trach COPD ? Aspiration PLAN: Aerosol nebs Cont Abx Monitor Brandon Wong MD Jun 29, 2017 15:05
[2017-06-29] MEDS: traZODone HCL 50 MG TAB PO SCH (20:38)
[2017-06-30] VITALS (8 sets, daily range): BP systolic 97–108; BP diastolic 52–65; PULSE 72–82; RESP 14–20; TEMP 97.4–98.1; O2SAT 95–97
[2017-06-30] MEDS: AMPICILLIN-SULBACTAM INJ 3 GM in SODIUM CHLORIDE 0.9% INJ 100 ML IV SCH ×4 (03:40→20:36)
[2017-06-30] MEDS: metroNIDAZOLE 500 MG TAB PO SCH ×3 (06:11→20:35)
[2017-06-30] MEDS: CHLORHEXIDINE 0.12% (ORAL KIT) 15 ML CUP MT SCH ×2 (08:00→20:00)
[2017-06-30] MEDS: POTASSIUM CHLORIDE 25 MEQ EFFERVESCENT TAB NG SCH (09:00)
[2017-06-30] MEDS: FUROSEMIDE 20 MG TAB PO SCH (09:00)
[2017-06-30] MEDS: levETIRAcetam 500 MG TAB PO SCH ×2 (09:00→20:35)
[2017-06-30] MEDS: NYSTATIN SUSP 500,000 U/5 ML CUP SWISH-SWAL SCH ×4 (09:00→20:35)
[2017-06-30] MEDS: LANSOPRAZOLE SOLUTAB 30 MG TAB NG SCH (09:00)
[2017-06-30] MEDS: MUPIROCIN 2% OINT 1 APPLIC/GM SYR EACH NARE SCH ×2 (09:00→20:34)
[2017-06-30] MEDS: THIAMINE HCL 100 MG TAB PO SCH (09:00)
[2017-06-30] MEDS: LACTOBACILLUS ACIDOPHILUS TAB PO SCH ×3 (09:00→17:42)
[2017-06-30] MEDS: DOCUSATE SODIUM 50 MG/SENNA 8.6 MG TAB PO SCH (09:00)
[2017-06-30] MEDS: guaiFENesin E.R. 600 MG TAB PO SCH ×2 (09:00→20:35)
[2017-06-30] MEDS: HEPARIN SODIUM - SQ 10,000 UNITS/ML VIAL SQ SCH ×2 (09:01→20:36)
[2017-06-30] MEDS: SODIUM HYPOCHLORITE 0.125% 500 ML BTL TOPICAL SCH (09:01)
[2017-06-30] MEDS: NYSTATIN 100,000 U/GM PWD 15 GM BTL TOPICAL SCH ×2 (09:02→20:36)
[2017-06-30] MEDS: ARTIFICIAL TEARS OPTH SOLN 15 ML BTL EACH EYE SCH ×3 (09:03→17:43)
[2017-06-30] MEDS: MORPHINE SULFATE 15 MG TAB PO PRN ×2 (13:29→20:35)
--- NOTE | 2017-06-30 15:21 | HHI.PR ---
Subjective Remarks Follow-up for hyponatremia, osmotic demyelination syndrome, debilitation. Patient seen and examined. Awake and alert. Feeling better. Sore throat not present this am. Diarrhea "is gone." Pt reported "pulled off my (condom) catheter and I got urine on the bed." Denies any other complaint. Denies any recent fever, chills, cough, n/v, diarrhea, or bloody urine or stool. Per RN (Citlaly) pt now has a cuffless trach and is without acute issues overnight or since start of shift. Objective Vitals Vital Signs Date Time Temp Pulse Resp B/P Pulse Ox O2 Delivery O2 Flow Rate FiO2 06/30/17 12:00 98.1 82 14 102/59 97 06/30/17 12:00 Room Air 06/30/17 08:35 Room Air 06/30/17 08:00 97.8 76 18 100/62 95 06/30/17 04:00 Nasal Cannula 2.00 06/30/17 04:00 97.4 80 20 97/52 95 06/30/17 00:00 Nasal Cannula 2.00 06/29/17 21:16 80 06/29/17 20:00 Nasal Cannula 2.00 06/29/17 20:00 99.0 82 19 100/58 99 06/29/17 16:00 98.1 82 18 101/59 92 06/29/17 16:00 Nasal Cannula 2.00 I/O 06/29/17 06/29/17 06/29/17 06/30/17 06/30/17 06/30/17 07:00 15:00 23:00 07:00 15:00 23:00 Intake Total 973 ml 720 ml 835 ml 682 ml 404 ml Output Total 200 ml 750 ml 400 ml Balance 773 ml -30 ml 435 ml 682 ml 404 ml Intake Oral 720 ml 480 ml IV Total 200 ml 100 ml 100 ml 404 ml Tube Feeding 773 ml 195 ml 522 ml Tube Irrigant 60 ml 60 ml Output Urine Total 200 ml 750 ml 400 ml Bladder Scan Volume Amount 360 ml # Bowel Movements 2 Imaging Last Impressions Chest X-Ray 06/28/17 0000 Signed Impressions: Service Date/Time: Wednesday, June 28, 2017 13:11 - CONCLUSION: Improvement in aeration of the lungs probably improving pulmonary edema with residual hazy opacity left lung base. Bety Castillo MD Abdomen X-Ray 06/27/17 0000 Signed Impressions: Service Date/Time: June 10:07 - CONCLUSION: No evidence of obstruction. Shyam Cobb MD Abdomen/Pelvis CT 05/08/17 0000 Signed Impressions: Service Date/Time: Monday, May 08, 2017 23:10 - CONCLUSION: Significant fluid throughout the abdomen and the pelvis with what appears to be a cirrhotic appearing liver and splenomegaly. There is significant small bowel wall thickening throughout the lower abdomen and the upper pelvis without evidence of obstruction Milo Muhammad MD Liver Ultrasound 04/15/17 0000 Signed Impressions: Service Date/Time: Saturday, April 15, 2017 09:24 - CONCLUSION: 1. Abnormal appearance of the pancreas with a nonspecific hypoechoic area involving the posterior part of the pancreas along the head and body region. Recommend CT scan of the abdomen with oral and IV contrast further evaluation. 2. Fatty infiltration throughout the liver. 3. There is thickening of the gallbladder wall at 6 mm. This is suggestive of chronic gallbladder disease. 4. Small amount of free fluid adjacent to the liver and spleen in the upper abdomen.. 5. Right-sided pleural effusion. Víctor Rosas MD Head CT 04/12/17 0000 Signed Impressions: Service Date/Time: Wednesday, April 12, 2017 21:30 - CONCLUSION: Pontine encephalomalacia. Left mastoiditis. Casper Alva MD Head Magnetic Resonance Angiography 03/28/17 0000 Signed Impressions: Service Date/Time: March 17:22 - CONCLUSION: Unremarkable examination. Bety Castillo MD Brain MRI 03/28/17 0000 Signed Impressions: Service Date/Time: March 17:22 - CONCLUSION: 1. 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 Small subacute ischemic bilateral thalamic infarcts. 2. There has been no significant change when compared to the prior exam. Yinka Harman MD Lower Extremity Ultrasound 03/25/17 0000 Signed Impressions: Service Date/Time: Saturday, March 25, 2017 22:17 - CONCLUSION: No evidence of DVT. Víctor Rosas MD CT Angiography 03/21/17 0000 Signed Impressions: Service Date/Time: March 00:33 - CONCLUSION: No evidence of pulmonary embolism is identified. Mild atelectasis left lung base. Fluid or phlegm within the trachea. Milo Muhammad MD Abdomen Ultrasound 03/20/17 0000 Signed Impressions: Service Date/Time: Monday, March 20, 2017 11:38 - CONCLUSION: 1. Hepatosplenomegaly without focal lesion. 2. Probable sludge within the lumen of the gallbladder. No intrahepatic duct. Cheo Martínez MD Shoulder X-Ray 03/02/17 1404 Signed Impressions: Service Date/Time: Thursday, March 02, 2017 15:18 - CONCLUSION: No evidence of recent bony injury. Deformity of the lateral left clavicle suggests old healed trauma. Cheo Martínez MD Maxillofacial CT 03/02/17 1342 Signed Impressions: Service Date/Time: Thursday, March 02, 2017 14:52 - CONCLUSION: Negative CT of the facial bones. Cheo Martínez MD Chest CT 03/02/17 1342 Signed Impressions: Service Date/Time: Thursday, March 02, 2017 15:04 - CONCLUSION: 1. Abnormal appearance of the lateral left clavicle suggesting a combination of acute and chronic bony injury. Fracture lucencies without bridging callus is seen the region of the coracoid process. 2. The lungs are clear. No evidence of pneumothorax. 3. Moderate size hiatus hernia. Cheo Martínez MD Cervical Spine CT 03/02/17 1342 Signed Impressions: Service Date/Time: Thursday, March 02, 2017 14:52 - CONCLUSION: Negative CT cervical spine. Cheo Martínez MD Objective Remarks GENERAL: Laying abed, in NAD. Pt speaking as t-tube is capped. PMV is in place. SKIN: Warm and dry. Wound at tracheostomy site is healed. HEAD: Normocephalic. EYES: No scleral icterus. No injection or drainage. NECK: Supple, trachea midline. No lymphadenopathy. CARDIOVASCULAR: Regular rate and rhythm without murmurs, gallops, or rubs. RESPIRATORY: Breath sounds equal bilaterally. No wheezes note. Rhonchi present. No accessory muscle use. GASTROINTESTINAL: Abdomen soft, nondistended. No tenderness elicited. MUSCULOSKELETAL: No cyanosis, or edema. PSYCHOLOGICAL: A&O x3, no overt signs/symptoms of depression and/or anxiety.Speech is clear and fluent. Procedures 03/02/2017 - arterial line and central line placement. 03/25/2017 - central line placement and intubation 06/06/17 -PEG tube replaced (Dr. Estevez). 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 Sandhu is a 61 year old male with a history of alcohol abuse, severe hypernatremia who presented to the ED on 03/02/2017 due to worsening fatigue, weakness that started 13 days prior to this hospitalization. He was found to have significant delirium. He admitted to drinking alcohol as well as taking xanax as well. ED work up indicated Na 99, Bilirubin 8.9, Lactate 9.8, Ammonia 60, CK 7000, troponin 4.9, Creatinine 1.5, bicarb 13. His WBC was 12, Platelets 112, INR 1.9. Meld score 26. He was severely hydrated. Patient was started on isotonic saline in an effort to improve hypovolemia. Patients sodium corrected too rapidly. Patient was treated for distributive shock, alcohol withdrawal and electrolyte imbalances in the ICU. Urinary tract infection: D/C unasyn 07/04. C. Diff: Dc Flagyl on 07/08. Thrush: D/ C oral nystatin 07/10. 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 Chronic severe hyponatremia Bilateral thalamic stroke Seizures - Continue Keppra 1000 mg PO every 12 hours. - Lorazepam 1 mg every 12 hours PO for seizures. Constipation. resolved - Continue scheduled Adele-Colace. - Follow clinically. Alcoholic liver disease Alcohol dependence Lower extremity thigh edema, improving - CT abdomen shows liver cirrhosis. - Continue folic acid and thiamine. - Furosemide 20 mg PO daily. - KCL eff 25 meq PO daily while on Lasix. - Monitor UO, electrolytes and intake closely while on diuretics. - PT and OT services continue, endurance is currently poor/highly limited. Acute hypoxemic and hypercapnic respiratory failure - Pulmonology following. - Status post tracheostomy on 04/16/2017. Encourage use of PMV as tolerated. - Continue Mucolytics and Mucinex. - Continue Duonebs scheduled. Depression Insomnia - Trazodone 75 mg PO HS; improved sleep reported. Monitor for over sedation. - Monitor for suicidal ideation. No suicidal ideation at this time. Upper respiratory bacterial infection, acute on chronic: Likely colonization and source of active infection. - Sputum culture growing Pseudomonas aeruginosa and Group D Enterococcus on 05/30/17. - Levaquin course completed. Urinary tract infection, reinfection. - Urine culture + Klebsiella pneumoniae and Enterococcus faecalis on . Ceftriaxone given and course completed. - Urine culture 06/15/17 growing Acinetobacter Baumannii/Haemol. Repeat urine culture ordered and pending. CBC reviewed today, WBC increased to 12.4. Afebrile. Continue Unasyn 3 g IV q6h (Start 06/20- end 07/04). Prolonged immobility: Continue PT. Continue stretcher chair. Chronic pain: Continue Morphine IR 15 mg q 4hrs. PEG site infection, resolved. - PEG site culture growing pseudomonas and Group D Enterococcus on 06/01/17. Removed and status post replacement 06/06/17. - Speech following patient, tolerating PO intake. Recommendations for mechanical soft and thin liquids. Monitor PO intake closely. Monitor for aspiration. - Levaquin (started 06/01/17 - stopped 06/08/17) for infected PEG site. Pharyngitis Nuvia Albicans: -Chloraseptic spray -Oral Nystatin C. Diff -Flagyl 500 mg TID (stop date:07/08/17) GI prophylaxis: Prevacid DVT Prophylaxis: Heparin Full code. Case discussed with pt, RN, and Dr. Harman. Discharge Planning Discharge Planning continues to pursue placement at [facility]. Kevyn Milan Jr. Jun 30, 2017 15:20
--- NOTE | 2017-06-30 15:46 | HHI.PR ---
Subjective Remarks 61 YOWM with RF, s/p trach removal no fever no new complaint C/O abd pain, Condom cathetor removed Objective Vital Signs Vital Signs Date Time Temp Pulse Resp B/P Pulse Ox O2 Delivery O2 Flow Rate FiO2 06/30/17 12:00 98.1 82 14 102/59 97 06/30/17 12:00 Room Air 06/30/17 08:35 Room Air 06/30/17 08:00 97.8 76 18 100/62 95 06/30/17 04:00 Nasal Cannula 2.00 06/30/17 04:00 97.4 80 20 97/52 95 06/30/17 00:00 Nasal Cannula 2.00 06/29/17 21:16 80 06/29/17 20:00 Nasal Cannula 2.00 06/29/17 20:00 99.0 82 19 100/58 99 06/29/17 16:00 98.1 82 18 101/59 92 06/29/17 16:00 Nasal Cannula 2.00 I/O 06/29/17 06/29/17 06/29/17 06/30/17 06/30/17 06/30/17 07:00 15:00 23:00 07:00 15:00 23:00 Intake Total 973 ml 720 ml 835 ml 682 ml 404 ml Output Total 200 ml 750 ml 400 ml Balance 773 ml -30 ml 435 ml 682 ml 404 ml Intake Oral 720 ml 480 ml IV Total 200 ml 100 ml 100 ml 404 ml Tube Feeding 773 ml 195 ml 522 ml Tube Irrigant 60 ml 60 ml Output Urine Total 200 ml 750 ml 400 ml Bladder Scan Volume Amount 360 ml # Bowel Movements 2 Objective Remarks GENERAL: MBMN WM, NAD SKIN: Warm and dry. HEAD: Normocephalic. EYES: No scleral icterus. No injection or drainage. NECK: Supple, trachea midline. No JVD or lymphadenopathy. has Trach CARDIOVASCULAR: Regular rate and rhythm without murmurs, gallops, or rubs. RESPIRATORY: Breath sounds equal bilaterally. No accessory muscle use. GASTROINTESTINAL: Abdomen soft, non-tender, nondistended. MUSCULOSKELETAL: No cyanosis, or edema. BACK: Nontender without obvious deformity. No CVA tenderness. A/P Assessment and Plan RF,S/P Trach COPD ? Aspiration PLAN: Aerosol nebs Cont Abx Monitor lytes Trach capped Bladder scan will FU in AM Brandon Harris MD Jun 30, 2017 15:46
[2017-06-30] MEDS: traZODone HCL 50 MG TAB PO SCH (20:35)
[2017-07-01] VITALS (7 sets, daily range): BP systolic 103–119; BP diastolic 61–68; PULSE 65–77; RESP 16–20; TEMP 97.4–98; O2SAT 95–97
[2017-07-01] MEDS: MORPHINE SULFATE 15 MG TAB PO PRN ×4 (00:31→21:06)
[2017-07-01] MEDS: AMPICILLIN-SULBACTAM INJ 3 GM in SODIUM CHLORIDE 0.9% INJ 100 ML IV SCH ×4 (03:51→21:06)
[2017-07-01] MEDS: metroNIDAZOLE 500 MG TAB PO SCH ×3 (06:06→21:06)
[2017-07-01] MEDS: CHLORHEXIDINE 0.12% (ORAL KIT) 15 ML CUP MT SCH (08:00)
[2017-07-01] MEDS: DOCUSATE SODIUM 50 MG/SENNA 8.6 MG TAB PO SCH (09:00)
[2017-07-01] MEDS: FUROSEMIDE 20 MG TAB PO SCH (09:00)
[2017-07-01] MEDS: ARTIFICIAL TEARS OPTH SOLN 15 ML BTL EACH EYE SCH ×2 (09:00→13:00)
--- NOTE | 2017-07-01 10:44 | HHI.PR ---
Subjective Remarks Follow-up for hyponatremia, osmotic demyelination syndrome, debilitation. Patient seen and examined. Awake and alert. asking when his trach will be removed reports, "this has been capped for days." Denies any other complaint. Denies any recent SOB, chest pain, fever, chills, cough, n/v, diarrhea, or bloody urine or stool. Patient denies diarrhea RN reports intermitted episodes of diarrhea. Objective Vitals Vital Signs Date Time Temp Pulse Resp B/P Pulse Ox O2 Delivery O2 Flow Rate FiO2 07/01/17 10:00 95 07/01/17 04:00 97.4 77 20 103/62 95 07/01/17 04:00 Room Air 07/01/17 00:00 Room Air 06/30/17 21:56 78 06/30/17 21:27 97 21 06/30/17 20:00 Room Air 06/30/17 19:53 98.0 82 20 97/63 97 06/30/17 16:00 Room Air 06/30/17 16:00 97.8 72 17 108/65 95 06/30/17 12:00 98.1 82 14 102/59 97 06/30/17 12:00 Room Air I/O 06/30/17 06/30/17 06/30/17 07/01/17 07/01/17 07/01/17 07:00 15:00 23:00 07:00 15:00 23:00 Intake Total 682 ml 944 ml 355 ml 650 ml Output Total 750 ml 250 ml 200 ml Balance 682 ml 194 ml 105 ml 450 ml Intake Oral 540 ml IV Total 100 ml 404 ml 100 ml 100 ml Tube Feeding 522 ml 195 ml 520 ml Tube Irrigant 60 ml 60 ml 30 ml Output Urine Total 750 ml 250 ml 200 ml Bladder Scan Volume Amount 209 ml 260 ml # Voids 2 1 # Bowel Movements 2 Objective Remarks GENERAL: Laying abed, in NAD. Pt speaking as trach is capped. PMV is in place. SKIN: Warm and dry. HEAD: Normocephalic. EYES: No scleral icterus. No injection or drainage. NECK: Supple, trachea midline. No lymphadenopathy. CARDIOVASCULAR: Regular rate and rhythm without murmurs, gallops, or rubs. RESPIRATORY: Breath sounds equal bilaterally. No wheezes note. Rhonchi present. No accessory muscle use. GASTROINTESTINAL: Abdomen soft, nondistended. No tenderness elicited. hyperactive bowel sounds x 4 quadrants MUSCULOSKELETAL: No cyanosis, or edema. PSYCHOLOGICAL: A&O x3, no overt signs/symptoms of depression and/or anxiety.Speech is clear and fluent. Procedures 03/02/2017 - arterial line and central line placement. 03/25/2017 - central line placement and intubation 06/06/17 -PEG tube replaced (Dr. Estevez). 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 Sandhu is a 61 year old male with a history of alcohol abuse, severe hypernatremia who presented to the ED on 03/02/2017 due to worsening fatigue, weakness that started 13 days prior to this hospitalization. He was found to have significant delirium. He admitted to drinking alcohol as well as taking xanax as well. ED work up indicated Na 99, Bilirubin 8.9, Lactate 9.8, Ammonia 60, CK 7000, troponin 4.9, Creatinine 1.5, bicarb 13. His WBC was 12, Platelets 112, INR 1.9. Meld score 26. He was severely dehydrated. Patient was started on isotonic saline in an effort to improve hypovolemia. Patients sodium corrected too rapidly. Patient was treated for distributive shock, alcohol withdrawal and electrolyte imbalances in the ICU. Urinary tract infection: Unasyn stop date 07/04. C. Diff: Flagyl stop date 07/08. Thrush: oral nystatin stop date 07/10. Osmotic demyelination syndrome Chronic severe hyponatremia Bilateral thalamic stroke Seizures - Continue Keppra 1000 mg PO every 12 hours. - Lorazepam 1 mg every 12 hours PO for seizures. Constipation. resolved - Continue scheduled Adele-Colace. - Follow clinically. Diarrhea intermitted - DC tube feeding as this may be contributing to diarrhea Alcoholic liver disease Alcohol dependence Lower extremity thigh edema, improving - CT abdomen shows liver cirrhosis. - Continue folic acid and thiamine. - Furosemide 20 mg PO daily. - KCL eff 25 meq PO daily while on Lasix. - Monitor UO, electrolytes and intake closely while on diuretics. - PT and OT services continue, endurance is currently poor/highly limited. Acute hypoxemic and hypercapnic respiratory failure - Pulmonology following. - Status post tracheostomy on 04/16/2017. Encourage use of PMV as tolerated. - Continue Mucolytics and Mucinex. - Continue Duonebs scheduled. Depression Insomnia - Trazodone 75 mg PO HS; improved sleep reported. Monitor for over sedation. - Monitor for suicidal ideation. No suicidal ideation at this time. Upper respiratory bacterial infection, acute on chronic: Likely colonization and source of active infection. - Sputum culture growing Pseudomonas aeruginosa and Group D Enterococcus on 05/30/17. - Levaquin course completed. Urinary tract infection, reinfection. - Urine culture + Klebsiella pneumoniae and Enterococcus faecalis on . Ceftriaxone given and course completed. - Urine culture 06/15/17 growing Acinetobacter Baumannii/Haemol. Repeat urine culture ordered and pending. CBC reviewed today, WBC increased to 12.4. Afebrile. Continue Unasyn 3 g IV q6h (Start 06/20- end 07/04). - Urine culture 06/19 showed Nuvia Glabrata repeat UA and Culture Prolonged immobility: Continue PT. Continue stretcher chair. Chronic pain: Continue Morphine IR 15 mg q 4hrs. Poor PO intake PEG site infection, resolved. - PEG site culture growing pseudomonas and Group D Enterococcus on 06/01/17. Removed and status post replacement 06/06/17. - Speech following patient, tolerating PO intake. Recommendations for mechanical soft and thin liquids. Monitor PO intake closely. Monitor for aspiration. - Levaquin (started 06/01/17 - stopped 06/08/17) for infected PEG site. - TF on hold secondary to diarrhea- calorie count requested Pharyngitis Nuvia Albicans: -Chloraseptic spray -Oral Nystatin C. Diff -Flagyl 500 mg TID (stop date:07/08/17) - rechcek stool for C Diff GI prophylaxis: Prevacid DVT Prophylaxis: Heparin Full code. Case discussed with pt, RN, and Dr. Harman. Discharge Planning CM continues to pursue placement at [facility] Jessica Balderas Jul 01, 2017 10:44
[2017-07-01] MEDS: POTASSIUM CHLORIDE 25 MEQ EFFERVESCENT TAB NG SCH (10:57)
[2017-07-01] MEDS: MUPIROCIN 2% OINT 1 APPLIC/GM SYR EACH NARE SCH ×2 (10:59→21:00)
[2017-07-01] MEDS: LACTOBACILLUS ACIDOPHILUS TAB PO SCH ×3 (11:00→16:44)
[2017-07-01] MEDS: THIAMINE HCL 100 MG TAB PO SCH (11:00)
[2017-07-01] MEDS: guaiFENesin E.R. 600 MG TAB PO SCH ×2 (11:00→21:06)
[2017-07-01] MEDS: NYSTATIN SUSP 500,000 U/5 ML CUP SWISH-SWAL SCH ×4 (11:00→21:00)
[2017-07-01] MEDS: levETIRAcetam 500 MG TAB PO SCH ×2 (11:00→21:06)
[2017-07-01] MEDS: LANSOPRAZOLE SOLUTAB 30 MG TAB NG SCH (11:01)
[2017-07-01] MEDS: HEPARIN SODIUM - SQ 10,000 UNITS/ML VIAL SQ SCH ×2 (11:03→21:06)
[2017-07-01] MEDS: SODIUM HYPOCHLORITE 0.125% 500 ML BTL TOPICAL SCH (11:04)
[2017-07-01] MEDS: NYSTATIN 100,000 U/GM PWD 15 GM BTL TOPICAL SCH ×2 (11:04→21:06)
[2017-07-01 11:54] LABS: BACTERIA, URINE FEW /hpf; BLOOD, URINE NEG (NEG); GLUCOSE,URINE NEG (NEG); KETONE, URINE NEG (NEG); NITRITE,URINE NEG (NEG); URINE COLOR YELLOW (YELLW/STRAW)
[2017-07-01] MEDS: ONDANSETRON HCL 4 MG/2 ML VIAL IV PRN (13:05)
--- NOTE | 2017-07-01 16:37 | HHI.PR ---
Subjective Remarks NO SOB O2 SAT ADEQUATE Objective Vital Signs Date Time Temp Pulse Resp B/P Pulse Ox O2 Delivery O2 Flow Rate FiO2 07/01/17 12:00 98.0 77 18 106/67 97 07/01/17 10:00 95 07/01/17 08:10 77 07/01/17 08:00 97.6 70 18 107/61 97 07/01/17 04:00 97.4 77 20 103/62 95 07/01/17 04:00 Room Air 07/01/17 00:00 Room Air 06/30/17 21:56 78 06/30/17 21:27 97 21 06/30/17 20:00 Room Air 06/30/17 19:53 98.0 82 20 97/63 97 I/O 06/30/17 06/30/17 06/30/17 07/01/17 07/01/17 07/01/17 07:00 15:00 23:00 07:00 15:00 23:00 Intake Total 682 ml 944 ml 355 ml 650 ml Output Total 750 ml 250 ml 200 ml Balance 682 ml 194 ml 105 ml 450 ml Intake Oral 540 ml IV Total 100 ml 404 ml 100 ml 100 ml Tube Feeding 522 ml 195 ml 520 ml Tube Irrigant 60 ml 60 ml 30 ml Output Urine Total 750 ml 250 ml 200 ml Bladder Scan Volume Amount 209 ml 260 ml # Voids 2 1 # Bowel Movements 2 Objective Remarks GENERAL: SKIN: Warm and dry. HEAD: Atraumatic. Normocephalic. EYES: Pupils equal and round. No scleral icterus. No injection or drainage. ENT: No nasal bleeding or discharge. Mucous membranes pink and moist. NECK: Trachea midline. No JVD. CARDIOVASCULAR: Regular rate and rhythm. RESPIRATORY: No accessory muscle use. Clear to auscultation. Breath sounds equal bilaterally. GASTROINTESTINAL: Abdomen soft, non-tender, nondistended. Hepatic and splenic margins not palpable. MUSCULOSKELETAL: Extremities without clubbing, cyanosis, or edema. No obvious deformities. NEUROLOGICAL: Awake and alert. No obvious cranial nerve deficits. Motor grossly within normal limits. Five out of 5 muscle strength in the arms and legs. Normal speech. PSYCHIATRIC: Appropriate mood and affect; insight and judgment normal. Assessment and Plan Assessment and Plan ASS RESPIRATORY FAIURE, IMPROVED PNA , IMPROVED ETOH LIVER DISEASE PLAN O2 NEEDED PULMONARY TOILET F/U CXRAY Dale,Dale Wadie MD Jul 01, 2017 16:37
--- NOTE | 2017-07-01 17:34 | RADRPT ---
EXAM DATE/TIME: 07/01/2017 16:50 [facility] COMPARISON: CHEST SINGLE AP, June 28, 2017, 13:11. INDICATIONS : Pneumonia. MEDICAL HISTORY : Cirrhosis. Diverticulosis. Hiatal hernia. Seizures. SURGICAL HISTORY : None. ENCOUNTER: Subsequent ACUITY: 2 months PAIN SCORE: 0/10 LOCATION: Bilateral chest FINDINGS: Tracheostomy tube is present in satisfactory position. Mild left lung base atelectasis and/or infiltr ate is seen. Heart and mediastinum are unremarkable for technique. CONCLUSION: Mild left lung base atelectasis and/or infiltrate is seen. Bety Castillo MD on July 01, 2017 at 17:32 Board Certified Radiologist. This report was verified electronically.
[2017-07-01] MEDS: traZODone HCL 50 MG TAB PO SCH (21:05)
[2017-07-02] VITALS (8 sets, daily range): BP systolic 96–104; BP diastolic 59–62; PULSE 67–76; RESP 17–20; TEMP 97.9–98.9; O2SAT 96–97
[2017-07-02] MEDS: AMPICILLIN-SULBACTAM INJ 3 GM in SODIUM CHLORIDE 0.9% INJ 100 ML IV SCH ×4 (03:57→21:44)
[2017-07-02] MEDS: metroNIDAZOLE 500 MG TAB PO SCH ×3 (05:42→21:40)
[2017-07-02] MEDS: DOCUSATE SODIUM 50 MG/SENNA 8.6 MG TAB PO SCH (09:00)
[2017-07-02] MEDS: levETIRAcetam 500 MG TAB PO SCH ×2 (09:31→21:41)
[2017-07-02] MEDS: MUPIROCIN 2% OINT 1 APPLIC/GM SYR EACH NARE SCH ×2 (09:31→21:43)
[2017-07-02] MEDS: LACTOBACILLUS ACIDOPHILUS TAB PO SCH ×3 (09:32→17:19)
[2017-07-02] MEDS: THIAMINE HCL 100 MG TAB PO SCH (09:33)
[2017-07-02] MEDS: guaiFENesin E.R. 600 MG TAB PO SCH ×2 (09:33→21:40)
[2017-07-02] MEDS: PANTOPRAZOLE SOD 20 MG DELAYED RELEASE TAB PO SCH (09:34)
[2017-07-02] MEDS: POTASSIUM CHLORIDE 20 MEQ CONTROLLED RELEASE TAB PO SCH (09:34)
[2017-07-02] MEDS: HEPARIN SODIUM - SQ 10,000 UNITS/ML VIAL SQ SCH ×2 (09:35→21:43)
[2017-07-02] MEDS: FUROSEMIDE 20 MG TAB PO SCH (09:36)
[2017-07-02] MEDS: SODIUM HYPOCHLORITE 0.125% 500 ML BTL TOPICAL SCH (09:40)
[2017-07-02] MEDS: NYSTATIN 100,000 U/GM PWD 15 GM BTL TOPICAL SCH ×2 (09:41→21:44)
[2017-07-02] MEDS: NYSTATIN SUSP 500,000 U/5 ML CUP SWISH-SWAL SCH ×4 (09:52→21:43)
[2017-07-02] MEDS: MORPHINE SULFATE 15 MG TAB PO PRN ×3 (13:19→21:42)
--- NOTE | 2017-07-02 16:13 | HHI.PR ---
Subjective Remarks Follow-up for hyponatremia, osmotic demyelination syndrome, debilitation. Patient seen and examined. Lying in bed resting with eyes closed, awakens to voice. Trach is capped > 48 hours now. Tolerating PO intake well. Denies any abdominal pain, nausea or vomiting. Spoke to RN at bedside, denies any new acute complaints overnight. Afebrile. Objective Vitals Vital Signs Date Time Temp Pulse Resp B/P Pulse Ox O2 Delivery O2 Flow Rate FiO2 07/02/17 12:00 97.9 76 18 96/62 97 07/02/17 10:53 96 21 07/02/17 08:00 98.8 75 20 100/59 96 07/02/17 04:00 Room Air 07/02/17 04:00 98.9 68 17 98/59 97 07/02/17 00:00 Room Air 07/01/17 20:00 Room Air 07/01/17 20:00 68 07/01/17 20:00 97.8 65 16 114/66 97 07/01/17 17:49 21 I/O 07/01/17 07/01/17 07/01/17 07/02/17 07/02/17 07/02/17 07:00 15:00 23:00 07:00 15:00 23:00 Intake Total 650 ml 480 ml 390 ml 380 ml 130 ml Output Total 200 ml 600 ml 620 ml 400 ml 250 ml Balance 450 ml -120 ml -230 ml -20 ml -120 ml Intake Oral 480 ml 260 ml 280 ml 100 ml IV Total 100 ml 100 ml 100 ml Tube Feeding 520 ml Tube Irrigant 30 ml 30 ml 30 ml Output Urine Total 200 ml 600 ml 620 ml 400 ml 250 ml Bladder Scan Volume Amount 260 ml # Voids 1 # Bowel Movements 0 0 0 1 Imaging Last Impressions Chest X-Ray 07/01/17 0000 Signed Impressions: Service Date/Time: Saturday, July 01, 2017 16:50 - CONCLUSION: Mild left lung base atelectasis and/or infiltrate is seen. Bety Castillo MD Abdomen X-Ray 06/27/17 0000 Signed Impressions: Service Date/Time: June 10:07 - CONCLUSION: No evidence of obstruction. Shyam Cobb MD Abdomen/Pelvis CT 05/08/17 0000 Signed Impressions: Service Date/Time: Monday, May 08, 2017 23:10 - CONCLUSION: Significant fluid throughout the abdomen and the pelvis with what appears to be a cirrhotic appearing liver and splenomegaly. There is significant small bowel wall thickening throughout the lower abdomen and the upper pelvis without evidence of obstruction Milo Muhammad MD Liver Ultrasound 04/15/17 0000 Signed Impressions: Service Date/Time: Saturday, April 15, 2017 09:24 - CONCLUSION: 1. Abnormal appearance of the pancreas with a nonspecific hypoechoic area involving the posterior part of the pancreas along the head and body region. Recommend CT scan of the abdomen with oral and IV contrast further evaluation. 2. Fatty infiltration throughout the liver. 3. There is thickening of the gallbladder wall at 6 mm. This is suggestive of chronic gallbladder disease. 4. Small amount of free fluid adjacent to the liver and spleen in the upper abdomen.. 5. Right-sided pleural effusion. Víctor Rosas MD Head CT 04/12/17 0000 Signed Impressions: Service Date/Time: Wednesday, April 12, 2017 21:30 - CONCLUSION: Pontine encephalomalacia. Left mastoiditis. Casper Alva MD Head Magnetic Resonance Angiography 03/28/17 0000 Signed Impressions: Service Date/Time: March 17:22 - CONCLUSION: Unremarkable examination. K. Bijan Castillo MD Brain MRI 03/28/17 0000 Signed Impressions: Service Date/Time: March 17:22 - CONCLUSION: 1. 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 Small subacute ischemic bilateral thalamic infarcts. 2. There has been no significant change when compared to the prior exam. Yinka Harman MD Lower Extremity Ultrasound 03/25/17 0000 Signed Impressions: Service Date/Time: Saturday, March 25, 2017 22:17 - CONCLUSION: No evidence of DVT. Víctor Rosas MD CT Angiography 03/21/17 0000 Signed Impressions: Service Date/Time: March 00:33 - CONCLUSION: No evidence of pulmonary embolism is identified. Mild atelectasis left lung base. Fluid or phlegm within the trachea. Milo Muhammad MD Abdomen Ultrasound 03/20/17 0000 Signed Impressions: Service Date/Time: Monday, March 20, 2017 11:38 - CONCLUSION: 1. Hepatosplenomegaly without focal lesion. 2. Probable sludge within the lumen of the gallbladder. No intrahepatic duct. Cheo Martínez MD Shoulder X-Ray 03/02/17 1404 Signed Impressions: Service Date/Time: Thursday, March 02, 2017 15:18 - CONCLUSION: No evidence of recent bony injury. Deformity of the lateral left clavicle suggests old healed trauma. Cheo Martínez MD Maxillofacial CT 03/02/17 1342 Signed Impressions: Service Date/Time: Thursday, March 02, 2017 14:52 - CONCLUSION: Negative CT of the facial bones. Cheo Martínez MD Chest CT 03/02/17 1342 Signed Impressions: Service Date/Time: Thursday, March 02, 2017 15:04 - CONCLUSION: 1. Abnormal appearance of the lateral left clavicle suggesting a combination of acute and chronic bony injury. Fracture lucencies without bridging callus is seen the region of the coracoid process. 2. The lungs are clear. No evidence of pneumothorax. 3. Moderate size hiatus hernia. Cheo Martínez MD Cervical Spine CT 03/02/17 1342 Signed Impressions: Service Date/Time: Thursday, March 02, 2017 14:52 - CONCLUSION: Negative CT cervical spine. Cheo Martínez MD Objective Remarks GENERAL: Well-nourished, well-developed male patient lying in bed in no apparent distress, trach capped. SKIN: Warm and dry. Trach site clean/dry/intact. HEENT: Normocephalic. No scleral icterus. No injection or drainage. NECK: Supple, trachea midline. No JVD. CARDIOVASCULAR: Regular rate and rhythm. No murmur appreciated. RESPIRATORY: Breath sounds equal bilaterally. Distant breath sounds. No accessory muscle use. GASTROINTESTINAL: Abdomen soft,nondistended. PEG site, dressing in place, c/d/i. EXTREMITIES: No cyanosis, or edema. NEUROLOGICAL: Awake, alert, and oriented x 3 Procedures 03/02/2017 - arterial line and central line placement. 03/25/2017 - central line placement and intubation 06/06/17 -PEG tube replaced (Dr. Estevez). 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 Sandhu is a 61 year old male with a history of alcohol abuse, severe hypernatremia who presented to the ED on 03/02/2017 due to worsening fatigue, weakness that started 13 days prior to this hospitalization. He was found to have significant delirium. He admitted to drinking alcohol as well as taking xanax as well. ED work up indicated Na 99, Bilirubin 8.9, Lactate 9.8, Ammonia 60, CK 7000, troponin 4.9, Creatinine 1.5, bicarb 13. His WBC was 12, Platelets 112, INR 1.9. Meld score 26. He was severely hydrated. Patient was started on isotonic saline in an effort to improve hypovolemia. Patients sodium corrected too rapidly. Patient was treated for distributive shock, alcohol withdrawal and electrolyte imbalances in the ICU. Clostridium difficile Diarrhea secondary to above - Continue Flagyl, stop date 07/08/17. - Monitor electrolytes. Oral thrush Nuvia Albicans Pharyngitis - Continue oral nystatin swish and swallow. End date 07/10/17. - Continue Chloraseptic spray. 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 Chronic severe hyponatremia Bilateral thalamic stroke Seizures - Continue Keppra 1000 mg PO every 12 hours. - Lorazepam 1 mg every 12 hours PO for seizures. Alcoholic liver disease Alcohol dependence Lower extremity thigh edema, improving - CT abdomen shows liver cirrhosis. - Continue folic acid and thiamine. - Furosemide 20 mg PO daily. - KCL eff 25 meq PO daily while on Lasix. -Repeat BMP in am. Follow. - Monitor UO, electrolytes and intake closely while on diuretics. - PT and OT services continue, endurance is currently poor/highly limited. Acute hypoxemic and hypercapnic respiratory failure - Pulmonology following. Ordered CXR yesterday. CXR reviewed and showing mild left lung base atelectasis and/or infiltrate. Patient asymptomatic, afebrile, most likely infiltrate. Will encourage IS use. Monitor. - Status post tracheostomy on 04/16/2017. Trach capped > 48 hours. Recheck CBC in am to evaluate WBC count. Follow. - Continue Mucolytics and Mucinex. - Continue Duonebs scheduled. Depression Insomnia - Trazodone 75 mg PO HS; improved sleep reported. Monitor for over sedation. - Monitor for suicidal ideation. No suicidal ideation at this time. Upper respiratory bacterial infection, acute on chronic: Likely colonization and source of active infection. - Sputum culture growing Pseudomonas aeruginosa and Group D Enterococcus on 05/30/17. - Levaquin course completed. Urinary tract infection, reinfection. - Urine culture + Klebsiella pneumoniae and Enterococcus faecalis on . Ceftriaxone given and course completed. - Urine culture 06/15/17 growing Acinetobacter Baumannii/Haemol. Repeat urine culture ordered and pending. CBC reviewed today, WBC increased to 12.4. Afebrile. Continue Unasyn 3 g IV q6h (Start 06/20- end 07/04). - Urine culture 06/19 showed Nuvia Glabrata repeat UA and Culture, NGTD. - Repeat CBC in am. Follow. Prolonged immobility: Continue PT. Continue stretcher chair. Chronic pain: Continue Morphine IR 15 mg q 4hrs. PEG site infection, resolved. - PEG site culture growing pseudomonas and Group D Enterococcus on 06/01/17. Removed and status post replacement 06/06/17. - Speech following patient, tolerating PO intake. Monitor for aspiration. - Levaquin (started 06/01/17 - stopped 06/08/17) for infected PEG site. GI prophylaxis: Prevacid DVT Prophylaxis: Heparin Full code. Case discussed with patient, RN and Dr. Mondragon Discharge Planning Last CM note: 07/02/17 Placed call to Guillermo ([phone]) and he states he has not been able to get bank statements as of yet. Guillermo is stating that there is some type of investigation going on concerning pt's funds. Guillermo states pt has him doing things for him with his accounts but he is not the legal rep for pt. Guillermo also states pt does not want rehab and thinks he will be well enogh to return home in a few weeks. Nayeli Devlin Jul 02, 2017 16:13
--- NOTE | 2017-07-02 16:21 | HHI.PR ---
Subjective Remarks NO SOB O2 SAT ADEQUATE Objective Vital Signs Date Time Temp Pulse Resp B/P Pulse Ox O2 Delivery O2 Flow Rate FiO2 07/02/17 12:00 97.9 76 18 96/62 97 07/02/17 10:53 96 21 07/02/17 08:00 98.8 75 20 100/59 96 07/02/17 04:00 Room Air 07/02/17 04:00 98.9 68 17 98/59 97 07/02/17 00:00 Room Air 07/01/17 20:00 Room Air 07/01/17 20:00 68 07/01/17 20:00 97.8 65 16 114/66 97 07/01/17 17:49 21 I/O 07/01/17 07/01/17 07/01/17 07/02/17 07/02/17 07/02/17 06:59 14:59 22:59 06:59 14:59 22:59 Intake Total 650 ml 480 ml 390 ml 380 ml 130 ml Output Total 200 ml 600 ml 620 ml 400 ml 250 ml Balance 450 ml -120 ml -230 ml -20 ml -120 ml Intake Oral 480 ml 260 ml 280 ml 100 ml IV Total 100 ml 100 ml 100 ml Tube Feeding 520 ml Tube Irrigant 30 ml 30 ml 30 ml Output Urine Total 200 ml 600 ml 620 ml 400 ml 250 ml Bladder Scan Volume Amount 260 ml # Voids 1 # Bowel Movements 0 0 0 1 Objective Remarks GENERAL: SKIN: Warm and dry. HEAD: Atraumatic. Normocephalic. EYES: Pupils equal and round. No scleral icterus. No injection or drainage. ENT: No nasal bleeding or discharge. Mucous membranes pink and moist. NECK: Trachea midline. No JVD. CARDIOVASCULAR: Regular rate and rhythm. RESPIRATORY: No accessory muscle use. Clear to auscultation. Breath sounds equal bilaterally. GASTROINTESTINAL: Abdomen soft, non-tender, nondistended. Hepatic and splenic margins not palpable. MUSCULOSKELETAL: Extremities without clubbing, cyanosis, or edema. No obvious deformities. NEUROLOGICAL: Awake and alert. No obvious cranial nerve deficits. Motor grossly within normal limits. Five out of 5 muscle strength in the arms and legs. Normal speech. PSYCHIATRIC: Appropriate mood and affect; insight and judgment normal. Assessment and Plan Assessment and Plan ASS RESPIRATORY FAIURE, IMPROVED PNA , IMPROVED ETOH LIVER DISEASE PLAN O2 NEEDED PULMONARY TOILET F/U CXRAY Dale,Dale Wadie MD Jul 02, 2017 16:21
[2017-07-02] MEDS: traZODone HCL 50 MG TAB PO SCH (21:41)
[2017-07-03] VITALS (7 sets, daily range): BP systolic 91–112; BP diastolic 59–65; PULSE 66–75; RESP 18; TEMP 97–98.1; O2SAT 95–97
[2017-07-03] MEDS: AMPICILLIN-SULBACTAM INJ 3 GM in SODIUM CHLORIDE 0.9% INJ 100 ML IV SCH ×4 (05:27→21:15)
[2017-07-03] MEDS: metroNIDAZOLE 500 MG TAB PO SCH ×3 (05:27→21:15)
[2017-07-03 08:29] LABS: BASOPHIL % 0.3 % (0.0-2.0); EOSINOPHIL # 0.1 TH/MM3 (0-0.4); EOSINOPHIL % 1.3 % (0.0-4.0); HEMATOCRIT 27.7 % (39.0-51.0); HEMO FLAGS DIFF FINAL; LYMPH % 20.2 % (9.0-44.0); LYMPHOCYTE # 1.1 TH/MM3 (1.0-4.8); MEAN CELL VOLUME 93.6 FL (80.0-100.0); MEAN CORPUSCULAR HEMOGLOBIN 32.7 PG (27.0-34.0); MEAN CORPUSCULAR HGB CONC 34.9 % (32.0-36.0); MONO % 8.1 % (0.0-8.0); NEUT % 70.1 % (16.0-70.0); PLATELET COUNT 116 TH/MM3 (150-450); RED BLOOD COUNT 2.96 MIL/MM3 (4.50-5.90); RED CELL DISTRIBUTION WIDTH 13.5 % (11.6-17.2); WHITE BLOOD COUNT 5.6 TH/MM3 (4.0-11.0)
[2017-07-03 08:50] LABS: BICARBONATE 27.5 MEQ/L (21.0-32.0)
[2017-07-03] MEDS: MUPIROCIN 2% OINT 1 APPLIC/GM SYR EACH NARE SCH ×2 (09:00→21:00)
[2017-07-03] MEDS: DOCUSATE SODIUM 50 MG/SENNA 8.6 MG TAB PO SCH (09:00)
[2017-07-03] MEDS: NYSTATIN SUSP 500,000 U/5 ML CUP SWISH-SWAL SCH ×4 (09:49→21:00)
[2017-07-03] MEDS: PANTOPRAZOLE SOD 20 MG DELAYED RELEASE TAB PO SCH (09:50)
[2017-07-03] MEDS: levETIRAcetam 500 MG TAB PO SCH ×2 (09:50→21:13)
[2017-07-03] MEDS: POTASSIUM CHLORIDE 20 MEQ CONTROLLED RELEASE TAB PO SCH (09:50)
[2017-07-03] MEDS: LACTOBACILLUS ACIDOPHILUS TAB PO SCH ×3 (09:50→17:53)
[2017-07-03] MEDS: FUROSEMIDE 20 MG TAB PO SCH (09:50)
[2017-07-03] MEDS: HEPARIN SODIUM - SQ 10,000 UNITS/ML VIAL SQ SCH ×2 (09:51→21:15)
[2017-07-03] MEDS: guaiFENesin E.R. 600 MG TAB PO SCH ×2 (09:51→21:14)
[2017-07-03] MEDS: THIAMINE HCL 100 MG TAB PO SCH (09:51)
[2017-07-03] MEDS: ONDANSETRON HCL 4 MG/2 ML VIAL IV PRN ×2 (09:52→17:53)
[2017-07-03] MEDS: SODIUM HYPOCHLORITE 0.125% 500 ML BTL TOPICAL SCH (09:58)
[2017-07-03] MEDS: NYSTATIN 100,000 U/GM PWD 15 GM BTL TOPICAL SCH ×2 (09:59→21:00)
--- NOTE | 2017-07-03 11:26 | HHI.PR ---
Subjective Remarks Follow-up for hyponatremia, osmotic demyelination syndrome, debilitation. Patient seen and examined. Awake and alert. Patient reports nausea which started this AM after taking his morning medications improved after taking after zofran was given Denies any recent SOB, chest pain, fever, chills, cough or bloody urine or stool. Objective Vitals Vital Signs Date Time Temp Pulse Resp B/P Pulse Ox O2 Delivery O2 Flow Rate FiO2 07/03/17 04:00 Room Air 07/03/17 00:00 Room Air 07/02/17 20:19 68 07/02/17 20:00 Room Air 07/02/17 20:00 98.6 67 18 100/59 96 07/02/17 17:54 96 21 07/02/17 16:00 97.9 76 18 104/62 96 07/02/17 14:19 18 07/02/17 12:00 97.9 76 18 96/62 97 I/O 07/02/17 07/02/17 07/02/17 07/03/17 07/03/17 07/03/17 07:00 15:00 23:00 07:00 15:00 23:00 Intake Total 380 ml 610 ml 100 ml Output Total 400 ml 850 ml 650 ml 400 ml Balance -20 ml -240 ml -550 ml -400 ml Intake Oral 280 ml 580 ml IV Total 100 ml 100 ml Tube Irrigant 30 ml Output Urine Total 400 ml 850 ml 650 ml 400 ml # Bowel Movements 0 3 Result Diagram: 07/03/17 0800 07/03/17 0800 Imaging Last Impressions Chest X-Ray 07/01/17 0000 Signed Impressions: Service Date/Time: Saturday, July 01, 2017 16:50 - CONCLUSION: Mild left lung base atelectasis and/or infiltrate is seen. Bety Castillo MD Abdomen X-Ray 06/27/17 0000 Signed Impressions: Service Date/Time: June 10:07 - CONCLUSION: No evidence of obstruction. Shyam Cobb MD Abdomen/Pelvis CT 05/08/17 0000 Signed Impressions: Service Date/Time: Monday, May 08, 2017 23:10 - CONCLUSION: Significant fluid throughout the abdomen and the pelvis with what appears to be a cirrhotic appearing liver and splenomegaly. There is significant small bowel wall thickening throughout the lower abdomen and the upper pelvis without evidence of obstruction Milo Muhammad MD Liver Ultrasound 04/15/17 0000 Signed Impressions: Service Date/Time: Saturday, April 15, 2017 09:24 - CONCLUSION: 1. Abnormal appearance of the pancreas with a nonspecific hypoechoic area involving the posterior part of the pancreas along the head and body region. Recommend CT scan of the abdomen with oral and IV contrast further evaluation. 2. Fatty infiltration throughout the liver. 3. There is thickening of the gallbladder wall at 6 mm. This is suggestive of chronic gallbladder disease. 4. Small amount of free fluid adjacent to the liver and spleen in the upper abdomen.. 5. Right-sided pleural effusion. Víctor Rosas MD Head CT 04/12/17 0000 Signed Impressions: Service Date/Time: Wednesday, April 12, 2017 21:30 - CONCLUSION: Pontine encephalomalacia. Left mastoiditis. Casper Alva MD Head Magnetic Resonance Angiography 03/28/17 0000 Signed Impressions: Service Date/Time: March 17:22 - CONCLUSION: Unremarkable examination. Bety Castillo MD Brain MRI 03/28/17 0000 Signed Impressions: Service Date/Time: March 17:22 - CONCLUSION: 1. 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 Small subacute ischemic bilateral thalamic infarcts. 2. There has been no significant change when compared to the prior exam. Yinka Harman MD Lower Extremity Ultrasound 03/25/17 0000 Signed Impressions: Service Date/Time: Saturday, March 25, 2017 22:17 - CONCLUSION: No evidence of DVT. Víctor Rosas MD CT Angiography 03/21/17 0000 Signed Impressions: Service Date/Time: March 00:33 - CONCLUSION: No evidence of pulmonary embolism is identified. Mild atelectasis left lung base. Fluid or phlegm within the trachea. Milo Muhammad MD Abdomen Ultrasound 03/20/17 0000 Signed Impressions: Service Date/Time: Monday, March 20, 2017 11:38 - CONCLUSION: 1. Hepatosplenomegaly without focal lesion. 2. Probable sludge within the lumen of the gallbladder. No intrahepatic duct. Cheo Martínez MD Shoulder X-Ray 03/02/17 1404 Signed Impressions: Service Date/Time: Thursday, March 02, 2017 15:18 - CONCLUSION: No evidence of recent bony injury. Deformity of the lateral left clavicle suggests old healed trauma. Cheo Martínez MD Maxillofacial CT 03/02/17 1342 Signed Impressions: Service Date/Time: Thursday, March 02, 2017 14:52 - CONCLUSION: Negative CT of the facial bones. Cheo Martínez MD Chest CT 03/02/17 1342 Signed Impressions: Service Date/Time: Thursday, March 02, 2017 15:04 - CONCLUSION: 1. Abnormal appearance of the lateral left clavicle suggesting a combination of acute and chronic bony injury. Fracture lucencies without bridging callus is seen the region of the coracoid process. 2. The lungs are clear. No evidence of pneumothorax. 3. Moderate size hiatus hernia. Cheo Martínez MD Cervical Spine CT 03/02/17 1342 Signed Impressions: Service Date/Time: Thursday, March 02, 2017 14:52 - CONCLUSION: Negative CT cervical spine. Cheo Martínez MD Objective Remarks GENERAL: Laying abed, in NAD. Pt speaking as trach is capped. PMV is in place. SKIN: Warm and dry. HEAD: Normocephalic. EYES: No scleral icterus. No injection or drainage. NECK: Supple, trachea midline. No lymphadenopathy. CARDIOVASCULAR: Regular rate and rhythm without murmurs, gallops, or rubs. RESPIRATORY: Breath sounds equal bilaterally. No wheezes note. Rhonchi present. No accessory muscle use. GASTROINTESTINAL: Abdomen soft, nondistended. tenderness elicited with palpation R and L lower quadrants. positive bowel sounds x 4 quadrants MUSCULOSKELETAL: No cyanosis, or edema. PSYCHOLOGICAL: A&O x3, no overt signs/symptoms of depression and/or anxiety.Speech is clear and fluent. Procedures 03/02/2017 - arterial line and central line placement. 03/25/2017 - central line placement and intubation 06/06/17 -PEG tube replaced (Dr. Estevez). 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 Sandhu is a 61 year old male with a history of alcohol abuse, severe hypernatremia who presented to the ED on 03/02/2017 due to worsening fatigue, weakness that started 13 days prior to this hospitalization. He was found to have significant delirium. He admitted to drinking alcohol as well as taking xanax as well. ED work up indicated Na 99, Bilirubin 8.9, Lactate 9.8, Ammonia 60, CK 7000, troponin 4.9, Creatinine 1.5, bicarb 13. His WBC was 12, Platelets 112, INR 1.9. Meld score 26. He was severely dehydrated. Patient was started on isotonic saline in an effort to improve hypovolemia. Patients sodium corrected too rapidly. Patient was treated for distributive shock, alcohol withdrawal and electrolyte imbalances in the ICU. Urinary tract infection: Unasyn stop date 07/04. C. Diff: Flagyl stop date 07/08. Thrush: oral nystatin stop date 07/10. Osmotic demyelination syndrome Chronic severe hyponatremia Bilateral thalamic stroke Seizures - Continue Keppra 1000 mg PO every 12 hours. - Lorazepam 1 mg every 12 hours PO for seizures. Constipation. resolved - Continue scheduled Adele-Colace. - Follow clinically. Diarrhea intermitted - DC tube feeding as this may be contributing to diarrhea Alcoholic liver disease Alcohol dependence Lower extremity thigh edema, improving - CT abdomen shows liver cirrhosis. - Continue folic acid and thiamine. - Furosemide 20 mg PO daily. - KCL eff 25 meq PO daily while on Lasix. - Monitor UO, electrolytes and intake closely while on diuretics. - PT and OT services continue, endurance is currently poor/highly limited. Acute hypoxemic and hypercapnic respiratory failure - Pulmonology following. - Status post tracheostomy on 04/16/2017. Encourage use of PMV as tolerated. - Continue Mucolytics and Mucinex. - Continue Duonebs scheduled. Depression Insomnia - Trazodone 75 mg PO HS; improved sleep reported. Monitor for over sedation. - Monitor for suicidal ideation. No suicidal ideation at this time. Upper respiratory bacterial infection, acute on chronic: Likely colonization and source of active infection. - Sputum culture growing Pseudomonas aeruginosa and Group D Enterococcus on 05/30/17. - Levaquin course completed. Urinary tract infection, reinfection. - Urine culture + Klebsiella pneumoniae and Enterococcus faecalis on . Ceftriaxone given and course completed. - Urine culture 06/15/17 growing Acinetobacter Baumannii/Haemol. Repeat urine culture ordered and pending. CBC reviewed today, WBC increased to 12.4. Afebrile. Continue Unasyn 3 g IV q6h (Start 06/20- end 07/04). - Urine culture 07/01 < 10,000 mixed gram positive derrick Prolonged immobility: Continue PT. Continue stretcher chair. Chronic pain: Continue Morphine IR 15 mg q 4hrs. Poor PO intake PEG site infection, resolved. - PEG site culture growing pseudomonas and Group D Enterococcus on 06/01/17. Removed and status post replacement 06/06/17. - Speech following patient, tolerating PO intake. Recommendations for mechanical soft and thin liquids. Monitor PO intake closely. Monitor for aspiration. - Levaquin (started 06/01/17 - stopped 06/08/17) for infected PEG site. - TF on hold secondary to diarrhea- calorie count requested Pharyngitis Nuvia Albicans: -Chloraseptic spray -Oral Nystatin C. Diff -Flagyl 500 mg TID (stop date:07/08/17) - rechcek stool for C Diff pending Abdominal pain/nausea Urinary retention - continue Zofran as needed for nausea - KUB 06/26 showed no sign of obstruction - BM x3 last night, positive flatus and positive bowel sounds - abd CT 05/08 showed significant fluid throughout the abdomen and pelvis with water appears to be cirrhotic appearing liver and splenomegaly. There is significant small bowel wall thickening throughout the lower abdomen and the upper pelvis without evidence of obstruction. - AST on 06/05/17 45/ ALT on 06/05/17 19 - patient afebrile and WBC 5.6 - bladder scan 451, patient able to void 550 ml abd pain resolved - will start Flomax daily - Dr. Mondragon notified GI prophylaxis: Prevacid DVT Prophylaxis: Heparin Full code. Case discussed with pt, RN, and Dr. Mondragon. Discharge Planning last CM note: 07/02/17 Placed call to Guillermo ([phone]) and he states he has not been able to get bank statements as of yet. Guillermo is stating that there is some type of investigation going on concerning pt's funds. Guillermo states pt has him doing things for him with his accounts but he is not the legal rep for pt. Guillermo also states pt does not want rehab and thinks he will be well enogh to return home in a few weeks. Jessica Balderas Jul 03, 2017 11:26
[2017-07-03] MEDS: MORPHINE SULFATE 15 MG TAB PO PRN ×2 (14:11→21:13)
--- NOTE | 2017-07-03 17:07 | HHI.PR ---
Subjective Remarks NO SOB O2 SAT ADEQUATE Objective Vital Signs Date Time Temp Pulse Resp B/P Pulse Ox O2 Delivery O2 Flow Rate FiO2 07/03/17 11:00 21 07/03/17 09:00 97 Room Air 07/03/17 04:00 Room Air 07/03/17 00:00 Room Air 07/02/17 20:19 68 07/02/17 20:00 Room Air 07/02/17 20:00 98.6 67 18 100/59 96 07/02/17 17:54 96 21 I/O 07/02/17 07/02/17 07/02/17 07/03/17 07/03/17 07/03/17 07:00 15:00 23:00 07:00 15:00 23:00 Intake Total 380 ml 610 ml 100 ml Output Total 400 ml 850 ml 650 ml 400 ml 1300 ml Balance -20 ml -240 ml -550 ml -400 ml -1300 ml Intake Oral 280 ml 580 ml IV Total 100 ml 100 ml Tube Irrigant 30 ml Output Urine Total 400 ml 850 ml 650 ml 400 ml 1300 ml Bladder Scan Volume Amount 4 ml # Bowel Movements 0 3 Result Diagram: 07/03/17 0800 07/03/17 0800 Objective Remarks GENERAL: SKIN: Warm and dry. HEAD: Atraumatic. Normocephalic. EYES: Pupils equal and round. No scleral icterus. No injection or drainage. ENT: No nasal bleeding or discharge. Mucous membranes pink and moist. NECK: Trachea midline. No JVD. CARDIOVASCULAR: Regular rate and rhythm. RESPIRATORY: No accessory muscle use. Clear to auscultation. Breath sounds equal bilaterally. GASTROINTESTINAL: Abdomen soft, non-tender, nondistended. Hepatic and splenic margins not palpable. MUSCULOSKELETAL: Extremities without clubbing, cyanosis, or edema. No obvious deformities. NEUROLOGICAL: Awake and alert. No obvious cranial nerve deficits. Motor grossly within normal limits. Five out of 5 muscle strength in the arms and legs. Normal speech. PSYCHIATRIC: Appropriate mood and affect; insight and judgment normal. Assessment and Plan Assessment and Plan ASS RESPIRATORY FAIURE, IMPROVED PNA , IMPROVED ETOH LIVER DISEASE PLAN O2 NEEDED PULMONARY TOILET Dale Hunter MD Jul 03, 2017 17:07
[2017-07-03] MEDS: TAMSULOSIN HCL 0.4 MG CAP PO SCH (17:56)
[2017-07-03] MEDS: traZODone HCL 50 MG TAB PO SCH (21:14)
[2017-07-04] VITALS (7 sets, daily range): BP systolic 90–102; BP diastolic 56–62; PULSE 59–98; RESP 18–20; TEMP 97–98.4; O2SAT 97–100
[2017-07-04] MEDS: MORPHINE SULFATE 15 MG TAB PO PRN ×3 (00:38→20:13)
[2017-07-04] MEDS: metroNIDAZOLE 500 MG TAB PO SCH ×3 (04:44→20:56)
[2017-07-04] MEDS: AMPICILLIN-SULBACTAM INJ 3 GM in SODIUM CHLORIDE 0.9% INJ 100 ML IV SCH (04:44)
[2017-07-04] MEDS: DOCUSATE SODIUM 50 MG/SENNA 8.6 MG TAB PO SCH (09:00)
[2017-07-04] MEDS: MUPIROCIN 2% OINT 1 APPLIC/GM SYR EACH NARE SCH ×2 (09:00→20:54)
[2017-07-04] MEDS: NYSTATIN SUSP 500,000 U/5 ML CUP SWISH-SWAL SCH ×4 (09:27→20:57)
[2017-07-04] MEDS: levETIRAcetam 500 MG TAB PO SCH ×2 (09:27→20:54)
[2017-07-04] MEDS: guaiFENesin E.R. 600 MG TAB PO SCH ×2 (09:27→20:55)
[2017-07-04] MEDS: POTASSIUM CHLORIDE 20 MEQ CONTROLLED RELEASE TAB PO SCH (09:27)
[2017-07-04] MEDS: PANTOPRAZOLE SOD 20 MG DELAYED RELEASE TAB PO SCH (09:27)
[2017-07-04] MEDS: THIAMINE HCL 100 MG TAB PO SCH (09:27)
[2017-07-04] MEDS: LACTOBACILLUS ACIDOPHILUS TAB PO SCH ×3 (09:27→17:03)
[2017-07-04] MEDS: FUROSEMIDE 20 MG TAB PO SCH (09:27)
[2017-07-04] MEDS: TAMSULOSIN HCL 0.4 MG CAP PO SCH (09:27)
[2017-07-04] MEDS: NYSTATIN 100,000 U/GM PWD 15 GM BTL TOPICAL SCH ×2 (09:28→20:57)
[2017-07-04] MEDS: HEPARIN SODIUM - SQ 10,000 UNITS/ML VIAL SQ SCH ×2 (09:28→20:57)
[2017-07-04] MEDS: SODIUM HYPOCHLORITE 0.125% 500 ML BTL TOPICAL SCH (09:28)
--- NOTE | 2017-07-04 12:41 | HHI.PR ---
Subjective Remarks Follow-up for hyponatremia, osmotic demyelination syndrome, debilitation. Patient seen and examined. Awake and alert. Patient reports he tolerated breakfast but is nauseate now. Denies vomiting or abdominal pain. Last BM last night, positive flatus. Denies any recent SOB, chest pain, fever, chills, cough or bloody urine or stool. Objective Vitals Vital Signs Date Time Temp Pulse Resp B/P Pulse Ox O2 Delivery O2 Flow Rate FiO2 07/04/17 12:27 97 21 07/04/17 11:17 59 07/04/17 09:19 Room Air 07/04/17 08:00 97.0 98 20 95/62 100 07/04/17 04:22 Room Air 07/04/17 00:00 Room Air 07/03/17 21:20 95 21 07/03/17 20:16 66 07/03/17 20:00 Room Air 07/03/17 20:00 98.1 71 18 96/59 95 07/03/17 19:11 66 07/03/17 16:00 97.6 66 18 112/64 97 I/O 07/03/17 07/03/17 07/03/17 07/04/17 07/04/17 07/04/17 07:00 15:00 23:00 07:00 15:00 23:00 Intake Total 480 ml 345 ml 105 ml Output Total 400 ml 2200 ml 300 ml Balance -400 ml -1720 ml 45 ml 105 ml Intake Oral 480 ml 240 ml IV Total 105 ml 105 ml Output Urine Total 400 ml 2200 ml 300 ml Bladder Scan Volume Amount 4 ml # Bowel Movements 1 0 Result Diagram: 07/03/17 0800 07/03/17 0800 Imaging Last Impressions Chest X-Ray 07/01/17 0000 Signed Impressions: Service Date/Time: Saturday, July 01, 2017 16:50 - CONCLUSION: Mild left lung base atelectasis and/or infiltrate is seen. Bety Castillo MD Abdomen X-Ray 06/27/17 0000 Signed Impressions: Service Date/Time: June 10:07 - CONCLUSION: No evidence of obstruction. Shyam Cobb MD Abdomen/Pelvis CT 05/08/17 0000 Signed Impressions: Service Date/Time: Monday, May 08, 2017 23:10 - CONCLUSION: Significant fluid throughout the abdomen and the pelvis with what appears to be a cirrhotic appearing liver and splenomegaly. There is significant small bowel wall thickening throughout the lower abdomen and the upper pelvis without evidence of obstruction Milo Muhammad MD Liver Ultrasound 04/15/17 0000 Signed Impressions: Service Date/Time: Saturday, April 15, 2017 09:24 - CONCLUSION: 1. Abnormal appearance of the pancreas with a nonspecific hypoechoic area involving the posterior part of the pancreas along the head and body region. Recommend CT scan of the abdomen with oral and IV contrast further evaluation. 2. Fatty infiltration throughout the liver. 3. There is thickening of the gallbladder wall at 6 mm. This is suggestive of chronic gallbladder disease. 4. Small amount of free fluid adjacent to the liver and spleen in the upper abdomen.. 5. Right-sided pleural effusion. Víctor Rosas MD Head CT 04/12/17 0000 Signed Impressions: Service Date/Time: Wednesday, April 12, 2017 21:30 - CONCLUSION: Pontine encephalomalacia. Left mastoiditis. Casper Alva MD Head Magnetic Resonance Angiography 03/28/17 0000 Signed Impressions: Service Date/Time: March 17:22 - CONCLUSION: Unremarkable examination. KShiv Castillo MD Brain MRI 03/28/17 0000 Signed Impressions: Service Date/Time: March 17:22 - CONCLUSION: 1. 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 Small subacute ischemic bilateral thalamic infarcts. 2. There has been no significant change when compared to the prior exam. Yinka Harman MD Lower Extremity Ultrasound 03/25/17 0000 Signed Impressions: Service Date/Time: Saturday, March 25, 2017 22:17 - CONCLUSION: No evidence of DVT. Víctor Rosas MD CT Angiography 03/21/17 0000 Signed Impressions: Service Date/Time: March 00:33 - CONCLUSION: No evidence of pulmonary embolism is identified. Mild atelectasis left lung base. Fluid or phlegm within the trachea. Milo Muhammad MD Abdomen Ultrasound 03/20/17 0000 Signed Impressions: Service Date/Time: Monday, March 20, 2017 11:38 - CONCLUSION: 1. Hepatosplenomegaly without focal lesion. 2. Probable sludge within the lumen of the gallbladder. No intrahepatic duct. Cheo Martínez MD Shoulder X-Ray 03/02/17 1404 Signed Impressions: Service Date/Time: Thursday, March 02, 2017 15:18 - CONCLUSION: No evidence of recent bony injury. Deformity of the lateral left clavicle suggests old healed trauma. Cheo Martínez MD Maxillofacial CT 03/02/17 1342 Signed Impressions: Service Date/Time: Thursday, March 02, 2017 14:52 - CONCLUSION: Negative CT of the facial bones. Cheo Martínez MD Chest CT 03/02/17 1342 Signed Impressions: Service Date/Time: Thursday, March 02, 2017 15:04 - CONCLUSION: 1. Abnormal appearance of the lateral left clavicle suggesting a combination of acute and chronic bony injury. Fracture lucencies without bridging callus is seen the region of the coracoid process. 2. The lungs are clear. No evidence of pneumothorax. 3. Moderate size hiatus hernia. Cheo Martínez MD Cervical Spine CT 03/02/17 1342 Signed Impressions: Service Date/Time: Thursday, March 02, 2017 14:52 - CONCLUSION: Negative CT cervical spine. Cheo Martínez MD Objective Remarks GENERAL: Laying abed, in NAD. Pt speaking as trach is capped. PMV is in place. SKIN: Warm and dry. HEAD: Normocephalic. EYES: No scleral icterus. No injection or drainage. NECK: Supple, trachea midline. No lymphadenopathy. CARDIOVASCULAR: Regular rate and rhythm without murmurs, gallops, or rubs. RESPIRATORY: Breath sounds equal bilaterally. No crackles or wheezes note. No accessory muscle use. GASTROINTESTINAL: Abdomen soft, nondistended. nontender. positive bowel sounds x 4 quadrants MUSCULOSKELETAL: No cyanosis, or edema. PSYCHOLOGICAL: A&O x3, no overt signs/symptoms of depression and/or anxiety.Speech is clear and fluent. Procedures 03/02/2017 - arterial line and central line placement. 03/25/2017 - central line placement and intubation 06/06/17 -PEG tube replaced (Dr. Estevez). 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 Sandhu is a 61 year old male with a history of alcohol abuse, severe hypernatremia who presented to the ED on 03/02/2017 due to worsening fatigue, weakness that started 13 days prior to this hospitalization. He was found to have significant delirium. He admitted to drinking alcohol as well as taking xanax as well. ED work up indicated Na 99, Bilirubin 8.9, Lactate 9.8, Ammonia 60, CK 7000, troponin 4.9, Creatinine 1.5, bicarb 13. His WBC was 12, Platelets 112, INR 1.9. Meld score 26. He was severely dehydrated. Patient was started on isotonic saline in an effort to improve hypovolemia. Patients sodium corrected too rapidly. Patient was treated for distributive shock, alcohol withdrawal and electrolyte imbalances in the ICU. Urinary tract infection: Unasyn stop date 07/04. C. Diff: Flagyl stop date 07/08. Thrush: oral nystatin stop date 07/10. Osmotic demyelination syndrome Chronic severe hyponatremia Bilateral thalamic stroke Seizures - Continue Keppra 1000 mg PO every 12 hours. - Lorazepam 1 mg every 12 hours PO for seizures. Constipation. resolved - Continue scheduled Adele-Colace. - Follow clinically. Diarrhea intermitted - DC tube feeding as this may be contributing to diarrhea Alcoholic liver disease Alcohol dependence Lower extremity thigh edema, improving - CT abdomen shows liver cirrhosis. - Continue folic acid and thiamine. - Furosemide 20 mg PO daily. - KCL eff 25 meq PO daily while on Lasix. - Monitor UO, electrolytes and intake closely while on diuretics. - PT and OT services continue, endurance is currently poor/highly limited. Acute hypoxemic and hypercapnic respiratory failure - Pulmonology following. - Status post tracheostomy on 04/16/2017. Encourage use of PMV as tolerated. - Continue Mucolytics and Mucinex. - Continue Duonebs scheduled. Depression Insomnia - Trazodone 75 mg PO HS; improved sleep reported. Monitor for over sedation. - Monitor for suicidal ideation. No suicidal ideation at this time. Upper respiratory bacterial infection, acute on chronic: Likely colonization and source of active infection. - Sputum culture growing Pseudomonas aeruginosa and Group D Enterococcus on 05/30/17. - Levaquin course completed. Urinary tract infection, reinfection. - Urine culture + Klebsiella pneumoniae and Enterococcus faecalis on . Ceftriaxone given and course completed. - Urine culture 06/15/17 growing Acinetobacter Baumannii/Haemol. Repeat urine culture ordered and pending. CBC reviewed today, WBC increased to 12.4. Afebrile. Continue Unasyn 3 g IV q6h (Start 06/20- end 07/04). - Urine culture 07/01 < 10,000 mixed gram positive derrick Prolonged immobility: Continue PT. Continue stretcher chair. Chronic pain: Continue Morphine IR 15 mg q 4hrs. Poor PO intake PEG site infection, resolved. intermitted nausea - PEG site culture growing pseudomonas and Group D Enterococcus on 06/01/17. Removed and status post replacement 06/06/17. - Speech following patient, tolerating PO intake. Recommendations for mechanical soft and thin liquids. Monitor PO intake closely. Monitor for aspiration. - Levaquin (started 06/01/17 - stopped 06/08/17) for infected PEG site. - TF on hold secondary to diarrhea- calorie count requested - Zofran as needed - start Marinol to stimulate appetite and help with nausea - discussed with Dr. Mondragon Pharyngitis Nuvia Albicans: -Chloraseptic spray -Oral Nystatin C. Diff -Flagyl 500 mg TID (stop date:07/08/17) - rechcek stool for C Diff pending Abdominal pain/nausea Urinary retention - post void residual ordered - continue Flomax daily GI prophylaxis: Prevacid DVT Prophylaxis: Heparin Full code. Case discussed with pt, RN, and Dr. Mondragon. Discharge Planning last CM note: 07/02/17 Placed call to Guillermo ([phone]) and he states he has not been able to get bank statements as of yet. Guillermo is stating that there is some type of investigation going on concerning pt's funds. Guillermo states pt has him doing things for him with his accounts but he is not the legal rep for pt. Guillerom also states pt does not want rehab and thinks he will be well enogh to return home in a few weeks. Jessica Balderas Jul 04, 2017 12:41
[2017-07-04] MEDS: DRONABINOL 2.5 MG CAP PO SCH (16:13)
--- NOTE | 2017-07-04 17:06 | HHI.PR ---
Subjective Remarks NO SOB O2 SAT ADEQUATE Objective Vital Signs Date Time Temp Pulse Resp B/P Pulse Ox O2 Delivery O2 Flow Rate FiO2 07/04/17 12:27 97 21 07/04/17 12:00 97.0 64 18 90/56 99 07/04/17 11:17 59 07/04/17 09:19 Room Air 07/04/17 08:00 97.0 98 20 95/62 100 07/04/17 04:22 Room Air 07/04/17 00:00 Room Air 07/03/17 21:20 95 21 07/03/17 20:16 66 07/03/17 20:00 Room Air 07/03/17 20:00 98.1 71 18 96/59 95 07/03/17 19:11 66 I/O 07/03/17 07/03/17 07/03/17 07/04/17 07/04/17 07/04/17 06:59 14:59 22:59 06:59 14:59 22:59 Intake Total 480 ml 345 ml 105 ml Output Total 400 ml 2200 ml 300 ml Balance -400 ml -1720 ml 45 ml 105 ml Intake Oral 480 ml 240 ml IV Total 105 ml 105 ml Output Urine Total 400 ml 2200 ml 300 ml Bladder Scan Volume Amount 4 ml 136 ml # Bowel Movements 1 0 Result Diagram: 07/03/17 0800 07/03/17 0800 Objective Remarks GENERAL: SKIN: Warm and dry. HEAD: Atraumatic. Normocephalic. EYES: Pupils equal and round. No scleral icterus. No injection or drainage. ENT: No nasal bleeding or discharge. Mucous membranes pink and moist. NECK: Trachea midline. No JVD. CARDIOVASCULAR: Regular rate and rhythm. RESPIRATORY: No accessory muscle use. Clear to auscultation. Breath sounds equal bilaterally. GASTROINTESTINAL: Abdomen soft, non-tender, nondistended. Hepatic and splenic margins not palpable. MUSCULOSKELETAL: Extremities without clubbing, cyanosis, or edema. No obvious deformities. NEUROLOGICAL: Awake and alert. No obvious cranial nerve deficits. Motor grossly within normal limits. Five out of 5 muscle strength in the arms and legs. Normal speech. PSYCHIATRIC: Appropriate mood and affect; insight and judgment normal. Assessment and Plan Assessment and Plan ASS RESPIRATORY FAIURE, IMPROVED PNA , IMPROVED ETOH LIVER DISEASE PLAN O2 NEEDED PULMONARY TOILET Dale Hunter MD Jul 04, 2017 17:06
[2017-07-04] MEDS: traZODone HCL 50 MG TAB PO SCH (20:55)
[2017-07-05] VITALS (7 sets, daily range): BP systolic 100–102; BP diastolic 62–66; PULSE 61–84; RESP 16–20; TEMP 98–98.1; O2SAT 95–97
[2017-07-05] MEDS: MORPHINE SULFATE 15 MG TAB PO PRN ×3 (00:12→22:21)
[2017-07-05] MEDS: diphenhydrAMINE HCL 50 MG/ML VIAL IV PRN (06:19)
[2017-07-05] MEDS: metroNIDAZOLE 500 MG TAB PO SCH ×3 (06:19→22:15)
[2017-07-05] MEDS: ONDANSETRON HCL 4 MG/2 ML VIAL IV PRN (06:24)
--- NOTE | 2017-07-05 08:36 | HHI.PR ---
Subjective Remarks NO SOB O2 SAT ADEQUATE Objective Vital Signs Date Time Temp Pulse Resp B/P Pulse Ox O2 Delivery O2 Flow Rate FiO2 07/05/17 04:00 Room Air 07/05/17 00:00 Room Air 07/04/17 20:00 102/60 07/04/17 20:00 97.8 75 20 98 07/04/17 20:00 Room Air 07/04/17 19:36 73 07/04/17 16:00 98.4 76 18 96/59 99 07/04/17 12:27 97 21 07/04/17 12:00 97.0 64 18 90/56 99 07/04/17 11:17 59 07/04/17 09:19 Room Air I/O 07/04/17 07/04/17 07/04/17 07/05/17 07/05/17 07/05/17 07:00 15:00 23:00 07:00 15:00 23:00 Intake Total 105 ml 102 ml 4 ml Balance 105 ml 102 ml 4 ml IV Total 105 ml 102 ml 4 ml Bladder Scan Volume Amount 136 ml Result Diagram: 07/03/17 0800 07/03/17 0800 Objective Remarks GENERAL: SKIN: Warm and dry. HEAD: Atraumatic. Normocephalic. EYES: Pupils equal and round. No scleral icterus. No injection or drainage. ENT: No nasal bleeding or discharge. Mucous membranes pink and moist. NECK: Trachea midline. No JVD. CARDIOVASCULAR: Regular rate and rhythm. RESPIRATORY: No accessory muscle use. Clear to auscultation. Breath sounds equal bilaterally. GASTROINTESTINAL: Abdomen soft, non-tender, nondistended. Hepatic and splenic margins not palpable. MUSCULOSKELETAL: Extremities without clubbing, cyanosis, or edema. No obvious deformities. NEUROLOGICAL: Awake and alert. No obvious cranial nerve deficits. Motor grossly within normal limits. Five out of 5 muscle strength in the arms and legs. Normal speech. PSYCHIATRIC: Appropriate mood and affect; insight and judgment normal. Assessment and Plan Assessment and Plan ASS RESPIRATORY FAIURE, IMPROVED PNA , IMPROVED ETOH LIVER DISEASE PLAN O2 NEEDED PULMONARY TOILET Dale Hunter MD Jul 05, 2017 08:36
[2017-07-05] MEDS: DOCUSATE SODIUM 50 MG/SENNA 8.6 MG TAB PO SCH (09:00)
[2017-07-05] MEDS: MUPIROCIN 2% OINT 1 APPLIC/GM SYR EACH NARE SCH ×2 (09:00→22:13)
[2017-07-05] MEDS: FUROSEMIDE 20 MG TAB PO SCH (09:00)
[2017-07-05] MEDS: NYSTATIN SUSP 500,000 U/5 ML CUP SWISH-SWAL SCH ×4 (09:33→22:12)
[2017-07-05] MEDS: guaiFENesin E.R. 600 MG TAB PO SCH ×2 (09:34→22:21)
[2017-07-05] MEDS: HEPARIN SODIUM - SQ 10,000 UNITS/ML VIAL SQ SCH ×2 (09:34→22:14)
[2017-07-05] MEDS: POTASSIUM CHLORIDE 20 MEQ CONTROLLED RELEASE TAB PO SCH (09:34)
[2017-07-05] MEDS: LACTOBACILLUS ACIDOPHILUS TAB PO SCH ×3 (09:34→16:48)
[2017-07-05] MEDS: PANTOPRAZOLE SOD 20 MG DELAYED RELEASE TAB PO SCH (09:34)
[2017-07-05] MEDS: TAMSULOSIN HCL 0.4 MG CAP PO SCH (09:34)
[2017-07-05] MEDS: THIAMINE HCL 100 MG TAB PO SCH (09:34)
[2017-07-05] MEDS: levETIRAcetam 500 MG TAB PO SCH ×2 (09:34→22:13)
[2017-07-05] MEDS: SODIUM HYPOCHLORITE 0.125% 500 ML BTL TOPICAL SCH (09:34)
[2017-07-05] MEDS: NYSTATIN 100,000 U/GM PWD 15 GM BTL TOPICAL SCH ×2 (09:35→21:00)
[2017-07-05 10:51] LABS: ALT (GPT) 23 U/L (12-78); ANION GAP 10 MEQ/L (5-15); AST (GOT) 49 U/L (15-37); BICARBONATE 28.1 MEQ/L (21.0-32.0); BLOOD UREA NITROGEN 10 MG/DL (7-18); CHLORIDE 99 MEQ/L (98-107); GLOMERULAR FILTRATION RATE 170 ML/MIN (>89); POTASSIUM 3.9 MEQ/L (3.5-5.1); SODIUM (NA) 137 MEQ/L (136-145)
[2017-07-05 10:53] LABS: ALKALINE PHOSPHATASE 257 U/L (45-117); TOTAL BILIRUBIN ADULT 0.8 MG/DL (0.2-1.0)
[2017-07-05] MEDS: DRONABINOL 2.5 MG CAP PO SCH ×2 (11:53→16:48)
--- NOTE | 2017-07-05 13:51 | HHI.PR ---
Subjective Remarks Follow-up for hyponatremia, osmotic demyelination syndrome, debilitation and nausea. Patient seen and examined. Patient initially resting awakes easily with voice. Reports nausea has improved Patient reports he tolerated breakfast and lunch. Denies vomiting or abdominal pain. Denies any recent SOB, chest pain, fever, chills, cough or bloody urine or stool. Objective Vitals Vital Signs Date Time Temp Pulse Resp B/P Pulse Ox O2 Delivery O2 Flow Rate FiO2 07/05/17 12:00 Room Air 07/05/17 09:45 95 07/05/17 08:34 98.0 72 16 100/62 97 07/05/17 08:00 61 07/05/17 08:00 Room Air 07/05/17 04:00 Room Air 07/05/17 00:00 Room Air 07/04/17 20:00 102/60 07/04/17 20:00 97.8 75 20 98 07/04/17 20:00 Room Air 07/04/17 19:36 73 07/04/17 16:00 98.4 76 18 96/59 99 I/O 07/04/17 07/04/17 07/04/17 07/05/17 07/05/17 07/05/17 07:00 15:00 23:00 07:00 15:00 23:00 Intake Total 105 ml 102 ml 4 ml Balance 105 ml 102 ml 4 ml IV Total 105 ml 102 ml 4 ml Bladder Scan Volume Amount 136 ml Result Diagram: 07/03/17 0800 07/05/17 0904 Objective Remarks GENERAL: Laying in bed , in NAD. Pt speaking as trach is capped. PMV is in place. SKIN: Warm and dry. HEAD: Normocephalic. EYES: No scleral icterus. No injection or drainage. NECK: Supple, trachea midline. No lymphadenopathy. CARDIOVASCULAR: Regular rate and rhythm without murmurs, gallops, or rubs. RESPIRATORY: Breath sounds equal bilaterally. No crackles or wheezes note. No accessory muscle use. GASTROINTESTINAL: Abdomen soft, nondistended. nontender. positive bowel sounds x 4 quadrants MUSCULOSKELETAL: No cyanosis, or edema. PSYCHOLOGICAL: A&O x3, no overt signs/symptoms of depression and/or anxiety.Speech is clear and fluent. Procedures 03/02/2017 - arterial line and central line placement. 03/25/2017 - central line placement and intubation 06/06/17 -PEG tube replaced (Dr. Estevez). 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 Sandhu is a 61 year old male with a history of alcohol abuse, severe hypernatremia who presented to the ED on 03/02/2017 due to worsening fatigue, weakness that started 13 days prior to this hospitalization. He was found to have significant delirium. He admitted to drinking alcohol as well as taking xanax as well. ED work up indicated Na 99, Bilirubin 8.9, Lactate 9.8, Ammonia 60, CK 7000, troponin 4.9, Creatinine 1.5, bicarb 13. His WBC was 12, Platelets 112, INR 1.9. Meld score 26. He was severely dehydrated. Patient was started on isotonic saline in an effort to improve hypovolemia. Patients sodium corrected too rapidly. Patient was treated for distributive shock, alcohol withdrawal and electrolyte imbalances in the ICU. Unasyn stop date 07/04. C. Diff: Flagyl stop date 07/08. Thrush: oral nystatin stop date 07/10. Osmotic demyelination syndrome Chronic severe hyponatremia Bilateral thalamic stroke Seizures - Continue Keppra 1000 mg PO every 12 hours. - Lorazepam 1 mg every 12 hours PO for seizures. Constipation. resolved - Continue scheduled Adele-Colace. - Follow clinically. Diarrhea intermitted - DC tube feeding as this may be contributing to diarrhea - currently on calorie count which completes 07/05/17 Alcoholic liver disease Alcohol dependence Lower extremity thigh edema, improving - CT abdomen shows liver cirrhosis. - Continue folic acid and thiamine. - Furosemide 20 mg PO daily. - KCL eff 25 meq PO daily while on Lasix. - Monitor UO, electrolytes and intake closely while on diuretics. - PT and OT services continue, endurance is currently poor/highly limited. Acute hypoxemic and hypercapnic respiratory failure - Pulmonology following. - Status post tracheostomy on 04/16/2017. Encourage use of PMV as tolerated. - Continue Mucolytics and Mucinex. - Continue Duonebs scheduled. Depression Insomnia - Trazodone 75 mg PO HS; improved sleep reported. Monitor for over sedation. - Monitor for suicidal ideation. No suicidal ideation at this time. Upper respiratory bacterial infection, acute on chronic: Likely colonization and source of active infection. - Sputum culture growing Pseudomonas aeruginosa and Group D Enterococcus on 05/30/17. - Levaquin course completed. Urinary tract infection, reinfection. - Urine culture + Klebsiella pneumoniae and Enterococcus faecalis on . Ceftriaxone given and course completed. - Urine culture 06/15/17 growing Acinetobacter Baumannii/Haemol. Repeat urine culture ordered and pending. CBC reviewed today, WBC increased to 12.4. Afebrile. Completed Unasyn 3 g IV q6h (Start 06/20- end 07/04). - Urine culture 07/01 < 10,000 mixed gram positive derrick Prolonged immobility: Continue PT. Continue stretcher chair. Chronic pain: Continue Morphine IR 15 mg q 4hrs. Poor PO intake PEG site infection, resolved. intermitted nausea- improving - PEG site culture growing pseudomonas and Group D Enterococcus on 06/01/17. Removed and status post replacement 06/06/17. - Speech following patient, tolerating PO intake. Recommendations for mechanical soft and thin liquids. Monitor PO intake closely. Monitor for aspiration. - Levaquin (started 06/01/17 - stopped 06/08/17) for infected PEG site. - TF on hold secondary to diarrhea- calorie count requested - Zofran as needed - continue Marinol to stimulate appetite and help with nausea - calorie count to be completed 07/05/17 Pharyngitis Nuvia Albicans: -Chloraseptic spray -Oral Nystatin C. Diff -Flagyl 500 mg TID (stop date:07/08/17) - rechcek stool for C Diff pending Abdominal pain/nausea Urinary retention - post void residual ordered - continue Flomax daily GI prophylaxis: Prevacid DVT Prophylaxis: Heparin Full code. Case discussed with pt, RN, and Dr. Mondragon. Discharge Planning CM working on safe DC arrangements- DC pending safe DC Jessica Balderas Jul 05, 2017 13:51
[2017-07-05] MEDS ORDERED: SILVER NITR/POTASSIUM NITRATE APPLICATORS TOPICAL ONE (15:45)
--- NOTE | 2017-07-05 15:50 | PD.WCN.NOT ---
Wound Consult Description: Sacral/Coccyx wound stage 4 follow up Communicated with: TIERRA Sutton PA Recommendation: Single layer Xeroform to wound bed only. Cover with bordered gauze every 2 days. Continue to cleanse and place Optifoam underneath trach collar as ordered. Additional Information: Patient seen on 4 for wound evaluation of sacrum/coccyx wound. Patient positioned himself to his right side for assessment. Patient is noted on 2 staggered ultrasorbs with specialty pressure relieving surface. Foam dressing and Dakins soaked gauze was removed from sacral/coccyx area. Wound bed on sacrum is 100% granulation tissue with <5% hypergranulation tissue noted in wound bed @ 6 o'clock. Wound margins are open and periwound is unremarkable. The hypergranulation tissue is recommended to have one application of silver nitrate performed by Physician, or mail opener, or trained nurse only. Wound is measuring 2.7cm x 2.4cm x <=0.4cm with the deepest noted at 12 o'clock and one granulation tag noted @6 o'clock measuring +0.2cm. Wound was covered with a bordered gauze, one soiled ultrasorb removed, leaving one ultrasorb in place. Patient repositioned himself back to his original position prior to assessment. Trach collar was positioned for visualization underneath and noted with partial thickness skinloss measuring 1cm x 1.4cm x 0.2cm that was cleansed and dressed with a cut piece of Optifoam applied underneath distal portion of trach collar and secured with paper tape. Bijal Barbour [facility] Jul 05, 2017 15:50
[2017-07-05] MEDS: traZODone HCL 50 MG TAB PO SCH (22:13)
[2017-07-06] VITALS (7 sets, daily range): BP systolic 94–125; BP diastolic 62–72; PULSE 67–87; RESP 16–18; TEMP 97–98.4; O2SAT 97–98
[2017-07-06] MEDS: MORPHINE SULFATE 15 MG TAB PO PRN ×3 (02:27→21:00)
[2017-07-06] MEDS: metroNIDAZOLE 500 MG TAB PO SCH ×3 (06:08→20:59)
[2017-07-06] MEDS: MUPIROCIN 2% OINT 1 APPLIC/GM SYR EACH NARE SCH ×2 (09:00→21:00)
[2017-07-06] MEDS: TAMSULOSIN HCL 0.4 MG CAP PO SCH (10:22)
[2017-07-06] MEDS: levETIRAcetam 500 MG TAB PO SCH ×2 (10:22→20:59)
[2017-07-06] MEDS: guaiFENesin E.R. 600 MG TAB PO SCH ×2 (10:23→20:59)
[2017-07-06] MEDS: DOCUSATE SODIUM 50 MG/SENNA 8.6 MG TAB PO SCH (10:24)
[2017-07-06] MEDS: THIAMINE HCL 100 MG TAB PO SCH (10:24)
[2017-07-06] MEDS: POTASSIUM CHLORIDE 20 MEQ CONTROLLED RELEASE TAB PO SCH (10:24)
[2017-07-06] MEDS: LACTOBACILLUS ACIDOPHILUS TAB PO SCH ×3 (10:25→15:26)
[2017-07-06] MEDS: PANTOPRAZOLE SOD 20 MG DELAYED RELEASE TAB PO SCH (10:25)
[2017-07-06] MEDS: FUROSEMIDE 20 MG TAB PO SCH (10:26)
[2017-07-06] MEDS: NYSTATIN SUSP 500,000 U/5 ML CUP SWISH-SWAL SCH ×4 (10:26→20:59)
[2017-07-06] MEDS: HEPARIN SODIUM - SQ 10,000 UNITS/ML VIAL SQ SCH ×2 (10:27→21:00)
[2017-07-06] MEDS: NYSTATIN 100,000 U/GM PWD 15 GM BTL TOPICAL SCH (10:46)
[2017-07-06] MEDS: DRONABINOL 2.5 MG CAP PO SCH ×2 (10:49→15:25)
--- NOTE | 2017-07-06 12:28 | HHI.PR ---
Subjective Remarks Follow-up for hyponatremia, osmotic demyelination syndrome, debilitation and nausea. Patient seen and examined. Patient initially resting awakes easily with voice. Reports nausea and appetite have improved Denies any recent SOB, chest pain, fever, chills, cough or bloody urine or stool. Objective Vitals Vital Signs Date Time Temp Pulse Resp B/P Pulse Ox O2 Delivery O2 Flow Rate FiO2 07/06/17 08:57 98 07/06/17 08:06 97.7 71 16 106/71 97 07/06/17 05:16 98 21 07/06/17 03:27 20 07/05/17 20:00 Room Air 07/05/17 20:00 80 07/05/17 20:00 98.1 84 20 102/66 96 07/05/17 19:50 95 07/05/17 16:07 98.1 70 16 102/64 97 07/05/17 16:00 Room Air I/O 07/05/17 07/05/17 07/05/17 07/06/17 07/06/17 07/06/17 07:00 15:00 23:00 07:00 15:00 23:00 Intake Total 4 ml 1080 ml Output Total 1800 ml Balance 4 ml -720 ml Intake Oral 1080 ml IV Total 4 ml Output Urine Total 1800 ml # Bowel Movements 0 Result Diagram: 07/03/17 0800 07/05/17 0904 Objective Remarks GENERAL: Laying in bed , in NAD. Pt speaking as trach is capped. PMV is in place. SKIN: Warm and dry. HEAD: Normocephalic. EYES: No scleral icterus. No injection or drainage. NECK: Supple, trachea midline. No lymphadenopathy. CARDIOVASCULAR: Regular rate and rhythm without murmurs, gallops, or rubs. RESPIRATORY: Breath sounds equal bilaterally. No crackles or wheezes note. No accessory muscle use. GASTROINTESTINAL: Abdomen soft, nondistended. nontender. positive bowel sounds x 4 quadrants MUSCULOSKELETAL: No cyanosis, or edema. PSYCHOLOGICAL: A&O x3, no overt signs/symptoms of depression and/or anxiety.Speech is clear and fluent. Procedures 03/02/2017 - arterial line and central line placement. 03/25/2017 - central line placement and intubation 06/06/17 -PEG tube replaced (Dr. Estevez). 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 Sandhu is a 61 year old male with a history of alcohol abuse, severe hypernatremia who presented to the ED on 03/02/2017 due to worsening fatigue, weakness that started 13 days prior to this hospitalization. He was found to have significant delirium. He admitted to drinking alcohol as well as taking xanax as well. ED work up indicated Na 99, Bilirubin 8.9, Lactate 9.8, Ammonia 60, CK 7000, troponin 4.9, Creatinine 1.5, bicarb 13. His WBC was 12, Platelets 112, INR 1.9. Meld score 26. He was severely dehydrated. Patient was started on isotonic saline in an effort to improve hypovolemia. Patients sodium corrected too rapidly. Patient was treated for distributive shock, alcohol withdrawal and electrolyte imbalances in the ICU. Unasyn stop date 07/04. C. Diff: Flagyl stop date 07/08. Thrush: oral nystatin stop date 07/10. Osmotic demyelination syndrome Chronic severe hyponatremia Bilateral thalamic stroke Seizures - Continue Keppra 1000 mg PO every 12 hours. - Lorazepam 1 mg every 12 hours PO for seizures. Constipation. resolved - Continue scheduled Adele-Colace. - Follow clinically. Diarrhea intermitted- improved - DC tube feeding as this may be contributing to diarrhea Alcoholic liver disease Alcohol dependence Lower extremity thigh edema, improving - CT abdomen shows liver cirrhosis. - Continue folic acid and thiamine. - Furosemide 20 mg PO daily. - KCL eff 25 meq PO daily while on Lasix. - Monitor UO, electrolytes and intake closely while on diuretics. - PT and OT services continue, endurance is currently poor/highly limited. Acute hypoxemic and hypercapnic respiratory failure - Pulmonology following. - Status post tracheostomy on 04/16/2017. Encourage use of PMV as tolerated. - Continue Mucolytics and Mucinex. - Continue Duonebs scheduled. Depression Insomnia - Trazodone 75 mg PO HS; improved sleep reported. Monitor for over sedation. - Monitor for suicidal ideation. No suicidal ideation at this time. Upper respiratory bacterial infection, acute on chronic: Likely colonization and source of active infection. - Sputum culture growing Pseudomonas aeruginosa and Group D Enterococcus on 05/30/17. - Levaquin course completed. Urinary tract infection, reinfection. - Urine culture + Klebsiella pneumoniae and Enterococcus faecalis on . Ceftriaxone given and course completed. - Urine culture 06/15/17 growing Acinetobacter Baumannii/Haemol. Repeat urine culture ordered and pending. CBC reviewed today, WBC increased to 12.4. Afebrile. Completed Unasyn 3 g IV q6h (Start 06/20- end 07/04). - Urine culture 07/01 < 10,000 mixed gram positive derrick Prolonged immobility: Continue PT. Continue stretcher chair. Chronic pain: Continue Morphine IR 15 mg q 4hrs. Poor PO intake PEG site infection, resolved. intermitted nausea- improving - PEG site culture growing pseudomonas and Group D Enterococcus on 06/01/17. Removed and status post replacement 06/06/17. - Speech following patient, tolerating PO intake. Recommendations for mechanical soft and thin liquids. Monitor PO intake closely. Monitor for aspiration. - Levaquin (started 06/01/17 - stopped 06/08/17) for infected PEG site. - TF on hold secondary to diarrhea- calorie count requested - Zofran as needed - continue Marinol to stimulate appetite and help with nausea - calorie count to be completed 07/05/17 recommendations continue current diet with ensure and do no need to restart TF at this time Pharyngitis Nuvia Albicans: -Chloraseptic spray -Oral Nystatin stop date 07/10. C. Diff -Flagyl 500 mg TID (stop date:07/08/17) Abdominal pain/nausea Urinary retention - continue Flomax daily GI prophylaxis: Prevacid DVT Prophylaxis: Heparin Full code. Case discussed with pt, RN, and Dr. Mondragon. Discharge Planning CM working on safe DC arrangements- DC pending safe DC Jessica Balderas Jul 06, 2017 12:28
--- NOTE | 2017-07-06 13:32 | HHI.PR ---
Subjective Remarks NO SOB O2 SAT ADEQUATE Objective Vital Signs Date Time Temp Pulse Resp B/P Pulse Ox O2 Delivery O2 Flow Rate FiO2 07/06/17 12:00 97.6 74 16 94/62 97 07/06/17 08:57 98 07/06/17 08:06 97.7 71 16 106/71 97 07/06/17 05:16 98 21 07/06/17 03:27 20 07/05/17 20:00 Room Air 07/05/17 20:00 80 07/05/17 20:00 98.1 84 20 102/66 96 07/05/17 19:50 95 07/05/17 16:07 98.1 70 16 102/64 97 07/05/17 16:00 Room Air I/O 07/05/17 07/05/17 07/05/17 07/06/17 07/06/17 07/06/17 07:00 15:00 23:00 07:00 15:00 23:00 Intake Total 4 ml 1080 ml Output Total 1800 ml Balance 4 ml -720 ml Intake Oral 1080 ml IV Total 4 ml Output Urine Total 1800 ml # Bowel Movements 0 Result Diagram: 07/03/17 0800 07/05/17 0904 Objective Remarks GENERAL: SKIN: Warm and dry. HEAD: Atraumatic. Normocephalic. EYES: Pupils equal and round. No scleral icterus. No injection or drainage. ENT: No nasal bleeding or discharge. Mucous membranes pink and moist. NECK: Trachea midline. No JVD. CARDIOVASCULAR: Regular rate and rhythm. RESPIRATORY: No accessory muscle use. Clear to auscultation. Breath sounds equal bilaterally. GASTROINTESTINAL: Abdomen soft, non-tender, nondistended. Hepatic and splenic margins not palpable. MUSCULOSKELETAL: Extremities without clubbing, cyanosis, or edema. No obvious deformities. NEUROLOGICAL: Awake and alert. No obvious cranial nerve deficits. Motor grossly within normal limits. Five out of 5 muscle strength in the arms and legs. Normal speech. PSYCHIATRIC: Appropriate mood and affect; insight and judgment normal. Assessment and Plan Assessment and Plan ASS RESPIRATORY FAIURE, IMPROVED PNA , IMPROVED ETOH LIVER DISEASE PLAN O2 NEEDED PULMONARY TOILET Dale Hunter MD Jul 06, 2017 13:32
[2017-07-06] MEDS: traZODone HCL 50 MG TAB PO SCH (21:00)
[2017-07-06] MEDS: SODIUM CHLORIDE 0.9% FLUSH 10 ML FLUSH IVF PRN (21:01)
[2017-07-07] VITALS (7 sets, daily range): BP systolic 90–104; BP diastolic 55–61; PULSE 71–80; RESP 17–18; TEMP 98–98.7; O2SAT 93–98
[2017-07-07] MEDS: MORPHINE SULFATE 15 MG TAB PO PRN ×3 (01:23→21:18)
[2017-07-07] MEDS: metroNIDAZOLE 500 MG TAB PO SCH ×3 (05:35→21:17)
[2017-07-07] MEDS: MUPIROCIN 2% OINT 1 APPLIC/GM SYR EACH NARE SCH ×2 (09:00→21:00)
[2017-07-07] MEDS: levETIRAcetam 500 MG TAB PO SCH ×2 (10:07→21:16)
[2017-07-07] MEDS: THIAMINE HCL 100 MG TAB PO SCH (10:07)
[2017-07-07] MEDS: LACTOBACILLUS ACIDOPHILUS TAB PO SCH ×3 (10:07→17:59)
[2017-07-07] MEDS: PANTOPRAZOLE SOD 20 MG DELAYED RELEASE TAB PO SCH (10:07)
[2017-07-07] MEDS: NYSTATIN SUSP 500,000 U/5 ML CUP SWISH-SWAL SCH ×4 (10:07→21:17)
[2017-07-07] MEDS: DRONABINOL 2.5 MG CAP PO SCH ×2 (10:07→17:59)
[2017-07-07] MEDS: DOCUSATE SODIUM 50 MG/SENNA 8.6 MG TAB PO SCH (10:08)
[2017-07-07] MEDS: TAMSULOSIN HCL 0.4 MG CAP PO SCH (10:08)
[2017-07-07] MEDS: POTASSIUM CHLORIDE 20 MEQ CONTROLLED RELEASE TAB PO SCH (10:08)
[2017-07-07] MEDS: FUROSEMIDE 20 MG TAB PO SCH (10:08)
[2017-07-07] MEDS: HEPARIN SODIUM - SQ 10,000 UNITS/ML VIAL SQ SCH ×2 (10:28→21:22)
[2017-07-07] MEDS: guaiFENesin E.R. 600 MG TAB PO SCH (10:28)
--- NOTE | 2017-07-07 11:50 | HHI.PR ---
Subjective Remarks Follow-up for hyponatremia, osmotic demyelination syndrome, debilitation and nausea. Patient seen and examined reports feeling well and seems to be in good spirits today Asking when trach will be decannulated Denies any recent SOB, chest pain, fever, chills, N/V/D/C Objective Vitals Vital Signs Date Time Temp Pulse Resp B/P Pulse Ox O2 Delivery O2 Flow Rate FiO2 07/07/17 08:00 98.0 75 18 104/57 95 07/07/17 02:23 20 07/06/17 20:48 67 07/06/17 20:38 97.0 72 16 111/67 97 07/06/17 20:28 Room Air 07/06/17 16:00 98.4 87 18 125/72 98 07/06/17 16:00 Room Air 07/06/17 16:00 Room Air 07/06/17 12:00 Room Air 07/06/17 12:00 Room Air 07/06/17 12:00 97.6 74 16 94/62 97 I/O 07/06/17 07/06/17 07/06/17 07/07/17 07/07/17 07/07/17 07:00 15:00 23:00 07:00 15:00 23:00 Intake Total 720 ml 0 ml Output Total 400 ml 350 ml Balance 320 ml -350 ml Intake Oral 720 ml 0 ml Output Urine Total 400 ml 350 ml # Bowel Movements 0 0 Result Diagram: 07/03/17 0800 07/05/17 0904 Objective Remarks GENERAL: Laying in bed , in NAD. Pt speaking as trach is capped. PMV is in place. SKIN: Warm and dry. HEAD: Normocephalic. EYES: No scleral icterus. No injection or drainage. NECK: Supple, trachea midline. No lymphadenopathy. CARDIOVASCULAR: Regular rate and rhythm without murmurs, gallops, or rubs. RESPIRATORY: Breath sounds equal bilaterally. No crackles or wheezes note. No accessory muscle use. GASTROINTESTINAL: Abdomen soft, nondistended. nontender. positive bowel sounds x 4 quadrants MUSCULOSKELETAL: No cyanosis, or edema. PSYCHOLOGICAL: A&O x3, no overt signs/symptoms of depression and/or anxiety.Speech is clear and fluent. Procedures 03/02/2017 - arterial line and central line placement. 03/25/2017 - central line placement and intubation 06/06/17 -PEG tube replaced (Dr. Estevez). 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 Sandhu is a 61 year old male with a history of alcohol abuse, severe hypernatremia who presented to the ED on 03/02/2017 due to worsening fatigue, weakness that started 13 days prior to this hospitalization. He was found to have significant delirium. He admitted to drinking alcohol as well as taking xanax as well. ED work up indicated Na 99, Bilirubin 8.9, Lactate 9.8, Ammonia 60, CK 7000, troponin 4.9, Creatinine 1.5, bicarb 13. His WBC was 12, Platelets 112, INR 1.9. Meld score 26. He was severely dehydrated. Patient was started on isotonic saline in an effort to improve hypovolemia. Patients sodium corrected too rapidly. Patient was treated for distributive shock, alcohol withdrawal and electrolyte imbalances in the ICU. C. Diff: Flagyl stop date 07/08. Thrush: oral nystatin stop date 07/10. Osmotic demyelination syndrome Chronic severe hyponatremia Bilateral thalamic stroke Seizures - Continue Keppra 1000 mg PO every 12 hours. - Lorazepam 1 mg every 12 hours PO for seizures. Constipation. resolved - Continue scheduled Adele-Colace. - Follow clinically. Diarrhea intermitted- resolved - DC tube feeding as this may be contributing to diarrhea Alcoholic liver disease Alcohol dependence Lower extremity thigh edema, improving - CT abdomen shows liver cirrhosis. - Continue folic acid and thiamine. - Furosemide 20 mg PO daily. - KCL eff 25 meq PO daily while on Lasix. - Monitor UO, electrolytes and intake closely while on diuretics. - PT and OT services continue, endurance is currently poor/highly limited. Acute hypoxemic and hypercapnic respiratory failure - Pulmonology following. - Status post tracheostomy on 04/16/2017. Encourage use of PMV as tolerated. - Continue Mucolytics and Mucinex. - Continue Duonebs scheduled. - patient askign when trach will be decannulated- defer to Pulmonology Depression Insomnia - Trazodone 75 mg PO HS; improved sleep reported. Monitor for over sedation. - Monitor for suicidal ideation. No suicidal ideation at this time. Upper respiratory bacterial infection, acute on chronic: Likely colonization and source of active infection. - Sputum culture growing Pseudomonas aeruginosa and Group D Enterococcus on 05/30/17. - Levaquin course completed. - DC Mucinex- patient having much less secretions Urinary tract infection, reinfection. - Urine culture + Klebsiella pneumoniae and Enterococcus faecalis on . Ceftriaxone given and course completed. - Urine culture 06/15/17 growing Acinetobacter Baumannii/Haemol. Repeat urine culture ordered and pending. CBC reviewed today, WBC increased to 12.4. Afebrile. Completed Unasyn 3 g IV q6h (Start 06/20- end 07/04). - Urine culture 07/01 < 10,000 mixed gram positive derrick Prolonged immobility: Continue PT. Continue stretcher chair. Chronic pain: Continue Morphine IR 15 mg q 4hrs. Poor PO intake PEG site infection, resolved. intermitted nausea- improving - PEG site culture growing pseudomonas and Group D Enterococcus on 06/01/17. Removed and status post replacement 06/06/17. - Speech following patient, tolerating PO intake. Recommendations for mechanical soft and thin liquids. Monitor PO intake closely. Monitor for aspiration. - Levaquin (started 06/01/17 - stopped 06/08/17) for infected PEG site. - TF on hold secondary to diarrhea- calorie count requested - Zofran as needed - continue Marinol to stimulate appetite and help with nausea - calorie count to be completed 07/05/17 recommendations continue current diet with ensure and do no need to restart TF at this time Pharyngitis Nuvia Albicans: -Chloraseptic spray -Oral Nystatin stop date 07/10. C. Diff -Flagyl 500 mg TID (stop date:07/08/17) Abdominal pain/nausea Urinary retention - continue Flomax daily GI prophylaxis: Prevacid DVT Prophylaxis: Heparin Full code. Case discussed with pt, RN, and Dr. Mondragon. Discharge Planning CM working on safe DC arrangements- DC pending safe DC Jessica Balderas Jul 07, 2017 11:50
[2017-07-07] MEDS: traZODone HCL 50 MG TAB PO SCH (21:17)
[2017-07-08] VITALS (8 sets, daily range): BP systolic 102–107; BP diastolic 62–69; PULSE 66–88; RESP 18; TEMP 97.7–98.6; O2SAT 94–96
[2017-07-08] MEDS: metroNIDAZOLE 500 MG TAB PO SCH ×2 (05:32→12:56)
[2017-07-08] MEDS: ONDANSETRON HCL 4 MG/2 ML VIAL IV PRN (07:36)
[2017-07-08] MEDS: TAMSULOSIN HCL 0.4 MG CAP PO SCH (08:45)
[2017-07-08] MEDS: LACTOBACILLUS ACIDOPHILUS TAB PO SCH ×3 (08:45→17:24)
[2017-07-08] MEDS: levETIRAcetam 500 MG TAB PO SCH ×2 (08:45→22:04)
[2017-07-08] MEDS: THIAMINE HCL 100 MG TAB PO SCH (08:45)
[2017-07-08] MEDS: NYSTATIN SUSP 500,000 U/5 ML CUP SWISH-SWAL SCH ×4 (08:45→22:04)
[2017-07-08] MEDS: POTASSIUM CHLORIDE 20 MEQ CONTROLLED RELEASE TAB PO SCH (08:45)
[2017-07-08] MEDS: DOCUSATE SODIUM 50 MG/SENNA 8.6 MG TAB PO SCH (08:46)
[2017-07-08] MEDS: FUROSEMIDE 20 MG TAB PO SCH (08:46)
[2017-07-08] MEDS: PANTOPRAZOLE SOD 20 MG DELAYED RELEASE TAB PO SCH (08:46)
[2017-07-08] MEDS: MUPIROCIN 2% OINT 1 APPLIC/GM SYR EACH NARE SCH ×2 (08:47→22:04)
[2017-07-08] MEDS: HEPARIN SODIUM - SQ 10,000 UNITS/ML VIAL SQ SCH ×2 (08:47→22:04)
--- NOTE | 2017-07-08 11:16 | HHI.PR ---
Subjective Remarks Follow-up visit hyponatremia, this moderate demyelination syndrome, debilitation , nausea. Patient seen and examined today. States his doing so-so. Complaints of right abdominal pain and nausea. States she has some relief with nausea with antinausea medication. Reports bowel movement this morning. Right hand peripheral line was accidentally pulled by the patient, bleeding from the site, gauze applied. Denies SOB/ dyspnea. Denies chest pain, palpitations, headaches, dizziness. Denies fevers, chills, n/v/d. Denies dysuria. Objective Vitals Vital Signs Date Time Temp Pulse Resp B/P Pulse Ox O2 Delivery O2 Flow Rate FiO2 07/08/17 08:55 Room Air 07/08/17 08:00 76 07/08/17 08:00 98.0 76 18 105/62 95 07/08/17 08:00 88 07/08/17 04:00 Room Air 07/07/17 23:18 96 Room Air 07/07/17 22:27 20 07/07/17 20:00 98.1 79 17 90/55 98 07/07/17 20:00 77 07/07/17 17:51 96 21 07/07/17 16:00 98.7 79 18 96/59 97 07/07/17 12:00 98.3 80 18 92/61 95 07/07/17 11:30 93 I/O 07/07/17 07/07/17 07/07/17 07/08/17 07/08/17 07/08/17 07:00 15:00 23:00 07:00 15:00 23:00 Intake Total 480 ml 260 ml 86 ml Output Total 900 ml 400 ml 400 ml Balance -420 ml -140 ml -314 ml Intake Oral 480 ml 260 ml 80 ml IV Total 6 ml Output Urine Total 900 ml 400 ml 400 ml # Bowel Movements 0 0 1 Result Diagram: 07/05/17 0904 Imaging Last Impressions Chest X-Ray 07/01/17 0000 Signed Impressions: Service Date/Time: Saturday, July 01, 2017 16:50 - CONCLUSION: Mild left lung base atelectasis and/or infiltrate is seen. Bety Castillo MD Abdomen X-Ray 06/27/17 0000 Signed Impressions: Service Date/Time: June 10:07 - CONCLUSION: No evidence of obstruction. Shyam Cobb MD Abdomen/Pelvis CT 05/08/17 0000 Signed Impressions: Service Date/Time: Monday, May 08, 2017 23:10 - CONCLUSION: Significant fluid throughout the abdomen and the pelvis with what appears to be a cirrhotic appearing liver and splenomegaly. There is significant small bowel wall thickening throughout the lower abdomen and the upper pelvis without evidence of obstruction Milo Muhammad MD Liver Ultrasound 04/15/17 0000 Signed Impressions: Service Date/Time: Saturday, April 15, 2017 09:24 - CONCLUSION: 1. Abnormal appearance of the pancreas with a nonspecific hypoechoic area involving the posterior part of the pancreas along the head and body region. Recommend CT scan of the abdomen with oral and IV contrast further evaluation. 2. Fatty infiltration throughout the liver. 3. There is thickening of the gallbladder wall at 6 mm. This is suggestive of chronic gallbladder disease. 4. Small amount of free fluid adjacent to the liver and spleen in the upper abdomen.. 5. Right-sided pleural effusion. Víctor Rosas MD Head CT 04/12/17 0000 Signed Impressions: Service Date/Time: Wednesday, April 12, 2017 21:30 - CONCLUSION: Pontine encephalomalacia. Left mastoiditis. Casper Alva MD Head Magnetic Resonance Angiography 03/28/17 0000 Signed Impressions: Service Date/Time: March 17:22 - CONCLUSION: Unremarkable examination. Bety Castillo MD Brain MRI 03/28/17 0000 Signed Impressions: Service Date/Time: March 17:22 - CONCLUSION: 1. 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 Small subacute ischemic bilateral thalamic infarcts. 2. There has been no significant change when compared to the prior exam. Yinka Harman MD Lower Extremity Ultrasound 03/25/17 0000 Signed Impressions: Service Date/Time: Saturday, March 25, 2017 22:17 - CONCLUSION: No evidence of DVT. Víctor Rosas MD CT Angiography 03/21/17 0000 Signed Impressions: Service Date/Time: March 00:33 - CONCLUSION: No evidence of pulmonary embolism is identified. Mild atelectasis left lung base. Fluid or phlegm within the trachea. Milo Muhammad MD Abdomen Ultrasound 03/20/17 0000 Signed Impressions: Service Date/Time: Monday, March 20, 2017 11:38 - CONCLUSION: 1. Hepatosplenomegaly without focal lesion. 2. Probable sludge within the lumen of the gallbladder. No intrahepatic duct. Cheo Martínez MD Shoulder X-Ray 03/02/17 1404 Signed Impressions: Service Date/Time: Thursday, March 02, 2017 15:18 - CONCLUSION: No evidence of recent bony injury. Deformity of the lateral left clavicle suggests old healed trauma. Cheo Martínez MD Maxillofacial CT 03/02/17 1342 Signed Impressions: Service Date/Time: Thursday, March 02, 2017 14:52 - CONCLUSION: Negative CT of the facial bones. Cheo Martínez MD Chest CT 03/02/17 1342 Signed Impressions: Service Date/Time: Thursday, March 02, 2017 15:04 - CONCLUSION: 1. Abnormal appearance of the lateral left clavicle suggesting a combination of acute and chronic bony injury. Fracture lucencies without bridging callus is seen the region of the coracoid process. 2. The lungs are clear. No evidence of pneumothorax. 3. Moderate size hiatus hernia. Cheo Martínez MD Cervical Spine CT 03/02/17 1342 Signed Impressions: Service Date/Time: Thursday, March 02, 2017 14:52 - CONCLUSION: Negative CT cervical spine. Cheo Martínez MD Objective Remarks GENERAL: This is a well-nourished, well-developed patient, in no apparent distress. SKIN: Warm and dry. HEENT: Normocephalic. Pupils equal round and reactive. Nose without bleeding. Airway patent. NECK: Trachea midline. Supple. Tracheostomy capped. CARDIOVASCULAR: Regular rate and rhythm without murmurs, gallops, or rubs. RESPIRATORY: Clear to auscultation. Breath sounds equal bilaterally. No wheezes , rales, or rhonchi. GASTROINTESTINAL: Abdomen soft, nondistended. Bowel Sounds normoactive x4. PEG in place. Right quadrant tenderness to palpate. MUSCULOSKELETAL: Extremities without clubbing, cyanosis, or edema. NEUROLOGICAL: Awake and alert. Oriented to time, place, person. Moves all extremities weakly. Normal speech. Procedures 03/02/2017 - arterial line and central line placement. 03/25/2017 - central line placement and intubation 06/06/17 -PEG tube replaced (Dr. Estevez). 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 Sandhu is a 61 year old male with a history of alcohol abuse, severe hypernatremia who presented to the ED on 03/02/2017 due to worsening fatigue, weakness that started 13 days prior to this hospitalization. He was found to have significant delirium. He admitted to drinking alcohol as well as taking xanax as well. ED work up indicated Na 99, Bilirubin 8.9, Lactate 9.8, Ammonia 60, CK 7000, troponin 4.9, Creatinine 1.5, bicarb 13. His WBC was 12, Platelets 112, INR 1.9. Meld score 26. He was severely dehydrated. Patient was started on isotonic saline in an effort to improve hypovolemia. Patients sodium corrected too rapidly. Patient was treated for distributive shock, alcohol withdrawal and electrolyte imbalances in the ICU. C. Diff: Flagyl stop date 07/08. Thrush: oral nystatin stop date 07/10. Osmotic demyelination syndrome Chronic severe hyponatremia Bilateral thalamic stroke Seizures - Continue Keppra 1000 mg PO every 12 hours. - Lorazepam 1 mg every 12 hours PO for seizures. - Seizure precaution Alcoholic liver disease Alcohol dependence Lower extremity thigh edema, improving - CT abdomen shows liver cirrhosis. - Continue folic acid and thiamine. - Furosemide 20 mg PO daily. - KCL EFF 25 meq PO daily while on Lasix. - Monitor UO, electrolytes and intake closely while on diuretics. - PT and OT services continue, endurance is currently poor/highly limited. Acute hypoxemic and hypercapnic respiratory failure - Pulmonology following. - Status post tracheostomy on 04/16/2017. Encourage use of PMV as tolerated. - Continue Mucolytics and Mucinex. - Continue Duonebs scheduled. Depression Insomnia - Trazodone 75 mg PO HS; improved sleep reported. Monitor for over sedation. - Monitor for suicidal ideation. No suicidal ideation at this time. Upper respiratory bacterial infection, acute on chronic: Likely colonization and source of active infection. - Sputum culture growing Pseudomonas aeruginosa and Group D Enterococcus on 05/30/17. - Levaquin course completed. - DC Mucinex- patient having much less secretions Urinary tract infection, reinfection. - Urine culture + Klebsiella pneumoniae and Enterococcus faecalis on . Ceftriaxone given and course completed. - Urine culture 06/15/17 growing Acinetobacter Baumannii/Haemol. Repeat urine culture ordered and pending. CBC reviewed today, WBC increased to 12.4. Afebrile. Completed Unasyn 3 g IV q6h (Start 06/20- end 07/04). - Urine culture 07/01 < 10,000 mixed gram positive derrick Prolonged immobility: Continue PT. Continue stretcher chair. Chronic pain: Continue Morphine IR 15 mg q 4hrs. Poor PO intake PEG site infection, resolved. intermitted nausea- improving - PEG site culture growing pseudomonas and Group D Enterococcus on 06/01/17. Removed and status post replacement 06/06/17. - Speech following patient, tolerating PO intake. Recommendations for mechanical soft and thin liquids. Monitor PO intake closely. Monitor for aspiration. - Levaquin (started 06/01/17 - stopped 06/08/17) for infected PEG site. - TF on hold secondary to diarrhea- calorie count requested - Zofran as needed - continue Marinol to stimulate appetite and help with nausea - calorie count to be completed 07/05/17 recommendations continue current diet with ensure and do no need to restart TF at this time Pharyngitis Nuvia Albicans: -Chloraseptic spray -Oral Nystatin stop date 07/10. C. Diff - Flagyl 500 mg TID (stop date:07/08/17) - No diarrhea reported. Abdominal pain/nausea Urinary retention - continue Flomax daily GI prophylaxis: Prevacid DVT Prophylaxis: Heparin Full code. Case discussed with patient, RN, and Dr. Mondragon. Discharge Planning Case management following patient. Plan for discharge either home with [facility] or penitentiary facility for rehabilitation. Plan is to discharge to [facility] pending patient's financial arrangements. Sena Talbot [facility] Jul 08, 2017 11:16 am
[2017-07-08] MEDS: DRONABINOL 2.5 MG CAP PO SCH ×2 (12:55→17:23)
--- NOTE | 2017-07-08 15:58 | HHI.PR ---
Subjective Remarks NO SOB O2 SAT ADEQUATE Objective Vital Signs Date Time Temp Pulse Resp B/P Pulse Ox O2 Delivery O2 Flow Rate FiO2 07/08/17 11:00 94 21 07/08/17 08:55 Room Air 07/08/17 08:00 76 07/08/17 08:00 98.0 76 18 105/62 95 07/08/17 08:00 88 07/08/17 04:00 Room Air 07/07/17 23:18 96 Room Air 07/07/17 22:27 20 07/07/17 20:00 98.1 79 17 90/55 98 07/07/17 20:00 77 07/07/17 17:51 96 21 07/07/17 16:00 98.7 79 18 96/59 97 I/O 07/07/17 07/07/17 07/07/17 07/08/17 07/08/17 07/08/17 07:00 15:00 23:00 07:00 15:00 23:00 Intake Total 480 ml 260 ml 86 ml Output Total 900 ml 400 ml 400 ml Balance -420 ml -140 ml -314 ml Intake Oral 480 ml 260 ml 80 ml IV Total 6 ml Output Urine Total 900 ml 400 ml 400 ml # Bowel Movements 0 0 1 Result Diagram: 07/05/17 0904 Objective Remarks GENERAL: SKIN: Warm and dry. HEAD: Atraumatic. Normocephalic. EYES: Pupils equal and round. No scleral icterus. No injection or drainage. ENT: No nasal bleeding or discharge. Mucous membranes pink and moist. NECK: Trachea midline. No JVD. CARDIOVASCULAR: Regular rate and rhythm. RESPIRATORY: No accessory muscle use. Clear to auscultation. Breath sounds equal bilaterally. GASTROINTESTINAL: Abdomen soft, non-tender, nondistended. Hepatic and splenic margins not palpable. MUSCULOSKELETAL: Extremities without clubbing, cyanosis, or edema. No obvious deformities. NEUROLOGICAL: Awake and alert. No obvious cranial nerve deficits. Motor grossly within normal limits. Five out of 5 muscle strength in the arms and legs. Normal speech. PSYCHIATRIC: Appropriate mood and affect; insight and judgment normal. Assessment and Plan Assessment and Plan ASS RESPIRATORY FAIURE, IMPROVED PNA , IMPROVED ETOH LIVER DISEASE PLAN O2 NEEDED PULMONARY TOILET Dale Hunter MD Jul 08, 2017 15:58
[2017-07-08] MEDS: traZODone HCL 50 MG TAB PO SCH (22:03)
[2017-07-08] MEDS: MORPHINE SULFATE 15 MG TAB PO PRN (22:03)
[2017-07-09] VITALS (7 sets, daily range): BP systolic 103–110; BP diastolic 56–69; PULSE 70–82; RESP 16–19; TEMP 97.2–98.4; O2SAT 94–98
--- NOTE | 2017-07-09 09:45 | HHI.PR ---
Subjective Remarks Follow-up visit hyponatremia, this moderate demyelination syndrome, debilitation , nausea. Patient seen and examined today. States he is doing better. States he cannot ambulate yet but he is able to sit in the chair about 5x with assistance. Continues to be debilitated. Tracheostomy in place and capped. Denies pain and discomfort. Denies SOB/ dyspnea. Denies chest pain, palpitations, headaches, dizziness. Denies fevers, chills, n/v/d. Denies dysuria. As per nursing, patient has been capped overnight and has not have any issues. He is able to eat and take his pills whole without problems. Objective Vitals Vital Signs Date Time Temp Pulse Resp B/P Pulse Ox O2 Delivery O2 Flow Rate FiO2 07/09/17 08:00 82 07/09/17 00:00 Room Air 07/08/17 20:34 80 07/08/17 20:00 98.6 76 18 107/67 96 07/08/17 20:00 Room Air 07/08/17 16:54 96 21 07/08/17 16:00 97.7 74 18 106/69 96 07/08/17 12:00 97.9 76 18 102/66 95 07/08/17 11:00 94 21 I/O 07/08/17 07/08/17 07/08/17 07/09/17 07/09/17 07/09/17 07:00 15:00 23:00 07:00 15:00 23:00 Intake Total 86 ml 0 ml Output Total 400 ml 800 ml 200 ml 150 ml Balance -314 ml -800 ml -200 ml -150 ml Intake Oral 80 ml 0 ml IV Total 6 ml Output Urine Total 400 ml 800 ml 200 ml 150 ml # Bowel Movements 1 1 0 Result Diagram: 07/05/17 0904 Imaging Last Impressions Chest X-Ray 07/01/17 0000 Signed Impressions: Service Date/Time: Saturday, July 01, 2017 16:50 - CONCLUSION: Mild left lung base atelectasis and/or infiltrate is seen. Bety Castillo MD Abdomen X-Ray 06/27/17 0000 Signed Impressions: Service Date/Time: June 10:07 - CONCLUSION: No evidence of obstruction. Shyam Cobb MD Abdomen/Pelvis CT 05/08/17 0000 Signed Impressions: Service Date/Time: Monday, May 08, 2017 23:10 - CONCLUSION: Significant fluid throughout the abdomen and the pelvis with what appears to be a cirrhotic appearing liver and splenomegaly. There is significant small bowel wall thickening throughout the lower abdomen and the upper pelvis without evidence of obstruction Milo Muhammad MD Liver Ultrasound 04/15/17 0000 Signed Impressions: Service Date/Time: Saturday, April 15, 2017 09:24 - CONCLUSION: 1. Abnormal appearance of the pancreas with a nonspecific hypoechoic area involving the posterior part of the pancreas along the head and body region. Recommend CT scan of the abdomen with oral and IV contrast further evaluation. 2. Fatty infiltration throughout the liver. 3. There is thickening of the gallbladder wall at 6 mm. This is suggestive of chronic gallbladder disease. 4. Small amount of free fluid adjacent to the liver and spleen in the upper abdomen.. 5. Right-sided pleural effusion. Víctor Rosas MD Head CT 04/12/17 0000 Signed Impressions: Service Date/Time: Wednesday, April 12, 2017 21:30 - CONCLUSION: Pontine encephalomalacia. Left mastoiditis. Casper Alva MD Head Magnetic Resonance Angiography 03/28/17 0000 Signed Impressions: Service Date/Time: March 17:22 - CONCLUSION: Unremarkable examination. K. Bijan Castillo MD Brain MRI 03/28/17 0000 Signed Impressions: Service Date/Time: March 17:22 - CONCLUSION: 1. 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 Small subacute ischemic bilateral thalamic infarcts. 2. There has been no significant change when compared to the prior exam. Yinka Harman MD Lower Extremity Ultrasound 03/25/17 0000 Signed Impressions: Service Date/Time: Saturday, March 25, 2017 22:17 - CONCLUSION: No evidence of DVT. Víctor Rosas MD CT Angiography 03/21/17 0000 Signed Impressions: Service Date/Time: March 00:33 - CONCLUSION: No evidence of pulmonary embolism is identified. Mild atelectasis left lung base. Fluid or phlegm within the trachea. Milo Muhammad MD Abdomen Ultrasound 03/20/17 0000 Signed Impressions: Service Date/Time: Monday, March 20, 2017 11:38 - CONCLUSION: 1. Hepatosplenomegaly without focal lesion. 2. Probable sludge within the lumen of the gallbladder. No intrahepatic duct. Cheo Martínez MD Shoulder X-Ray 03/02/17 1404 Signed Impressions: Service Date/Time: Thursday, March 02, 2017 15:18 - CONCLUSION: No evidence of recent bony injury. Deformity of the lateral left clavicle suggests old healed trauma. Cheo Martínez MD Maxillofacial CT 03/02/17 1342 Signed Impressions: Service Date/Time: Thursday, March 02, 2017 14:52 - CONCLUSION: Negative CT of the facial bones. Cheo Martínez MD Chest CT 03/02/17 1342 Signed Impressions: Service Date/Time: Thursday, March 02, 2017 15:04 - CONCLUSION: 1. Abnormal appearance of the lateral left clavicle suggesting a combination of acute and chronic bony injury. Fracture lucencies without bridging callus is seen the region of the coracoid process. 2. The lungs are clear. No evidence of pneumothorax. 3. Moderate size hiatus hernia. Cheo Martínez MD Cervical Spine CT 03/02/17 1342 Signed Impressions: Service Date/Time: Thursday, March 02, 2017 14:52 - CONCLUSION: Negative CT cervical spine. Cheo Martínez MD Objective Remarks GENERAL: This is a well-nourished, well-developed patient, in no apparent distress. SKIN: Warm and dry. HEENT: Normocephalic. Pupils equal round and reactive. Nose without bleeding. Airway patent. NECK: Trachea midline. Supple. Tracheostomy capped. CARDIOVASCULAR: Regular rate and rhythm without murmurs, gallops, or rubs. RESPIRATORY: Clear to auscultation. Breath sounds equal bilaterally. No wheezes , rales, or rhonchi. GASTROINTESTINAL: Abdomen soft, nondistended. Bowel Sounds normoactive x4. PEG in place. Right quadrant non tender to palpate. MUSCULOSKELETAL: Extremities without clubbing, cyanosis, or edema. NEUROLOGICAL: Awake and alert. Oriented to time, place, person. Moves all extremities weakly. Normal speech. Procedures 03/02/2017 - arterial line and central line placement. 03/25/2017 - central line placement and intubation 7/06/17 -PEG tube replaced (Dr. Estevez). 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 Sandhu is a 61 year old male with a history of alcohol abuse, severe hypernatremia who presented to the ED on 03/02/2017 due to worsening fatigue, weakness that started 13 days prior to this hospitalization. He was found to have significant delirium. He admitted to drinking alcohol as well as taking xanax as well. ED work up indicated Na 99, Bilirubin 8.9, Lactate 9.8, Ammonia 60, CK 7000, troponin 4.9, Creatinine 1.5, bicarb 13. His WBC was 12, Platelets 112, INR 1.9. Meld score 26. He was severely dehydrated. Patient was started on isotonic saline in an effort to improve hypovolemia. Patients sodium corrected too rapidly. Patient was treated for distributive shock, alcohol withdrawal and electrolyte imbalances in the ICU. C. Diff: Flagyl stop date 07/08. Thrush: oral nystatin stop date 07/10. Osmotic demyelination syndrome Chronic severe hyponatremia Bilateral thalamic stroke Seizures - Continue Keppra 1000 mg PO every 12 hours. - Lorazepam 1 mg every 12 hours PO for seizures. - Seizure precaution Alcoholic liver disease Alcohol dependence Lower extremity thigh edema, improving - CT abdomen shows liver cirrhosis. - Continue folic acid and thiamine. - Furosemide 20 mg PO daily. - KCL EFF 25 meq PO daily while on Lasix. - Monitor UO, electrolytes and intake closely while on diuretics. - PT and OT services continue, endurance is currently poor/highly limited. Acute hypoxemic and hypercapnic respiratory failure - Pulmonology following. - Status post tracheostomy on 04/16/2017. Encourage use of PMV as tolerated. - Continue Mucolytics and Mucinex. - Continue Duonebs scheduled. - Patient has been capped without issues. Spoke with Dr. Hunter and states he will attempt to decannulate patient. Depression Insomnia - Trazodone 75 mg PO HS; improved sleep reported. Monitor for over sedation. - Monitor for suicidal ideation. No suicidal ideation at this time. Upper respiratory bacterial infection, acute on chronic: Likely colonization and source of active infection. - Sputum culture growing Pseudomonas aeruginosa and Group D Enterococcus on 05/30/17. - Levaquin course completed. - DC Mucinex- patient having much less secretions Urinary tract infection, reinfection. - Urine culture + Klebsiella pneumoniae and Enterococcus faecalis on . Ceftriaxone given and course completed. - Urine culture 06/15/17 growing Acinetobacter Baumannii/Haemol. Repeat urine culture ordered and pending. CBC reviewed today, WBC increased to 12.4. Afebrile. Completed Unasyn 3 g IV q6h (Start 06/20- end 07/04). - Urine culture 07/01 < 10,000 mixed gram positive derrick Prolonged immobility Debilitated - Continue PT. Continue stretcher chair - May benefit with skilled rehabilitation. He agrees with 2 week rehabilitation. Chronic pain: Continue Morphine IR 15 mg q 4hrs. Poor PO intake PEG site infection, resolved. intermitted nausea- improving - PEG site culture growing pseudomonas and Group D Enterococcus on 06/01/17. Removed and status post replacement 06/06/17. - Speech following patient, tolerating PO intake. Recommendations for mechanical soft and thin liquids. Monitor PO intake closely. Monitor for aspiration. - Levaquin (started 06/01/17 - stopped 06/08/17) for infected PEG site. - TF on hold secondary to diarrhea- calorie count requested - Zofran as needed - continue Marinol to stimulate appetite and help with nausea - calorie count to be completed 07/05/17 recommendations continue current diet with ensure and do no need to restart TF at this time Pharyngitis Nuvia Albicans: -Chloraseptic spray -Oral Nystatin stop date 07/10. C. Diff - Flagyl 500 mg TID (stop date:07/08/17) - No diarrhea reported. Abdominal pain/nausea Urinary retention - continue Flomax daily GI prophylaxis: Prevacid DVT Prophylaxis: Heparin Full code. Case discussed with patient, RN, and Dr. Mondragon. Discharge Planning Case management following patient. Plan [facility] once decannulated. Sena Talbot [facility] Jul 09, 2017 09:45
--- NOTE | 2017-07-09 09:57 | HHI.PR ---
Objective Vitals Vital Signs Date Time Temp Pulse Resp B/P Pulse Ox O2 Delivery O2 Flow Rate FiO2 07/09/17 08:00 82 07/09/17 00:00 Room Air 07/08/17 20:34 80 07/08/17 20:00 98.6 76 18 107/67 96 07/08/17 20:00 Room Air 07/08/17 16:54 96 21 07/08/17 16:00 97.7 74 18 106/69 96 07/08/17 12:00 97.9 76 18 102/66 95 07/08/17 11:00 94 21 I/O 07/08/17 07/08/17 07/08/17 07/09/17 07/09/17 07/09/17 07:00 15:00 23:00 07:00 15:00 23:00 Intake Total 86 ml 0 ml Output Total 400 ml 800 ml 200 ml 150 ml Balance -314 ml -800 ml -200 ml -150 ml Intake Oral 80 ml 0 ml IV Total 6 ml Output Urine Total 400 ml 800 ml 200 ml 150 ml # Bowel Movements 1 1 0 Result Diagram: 07/05/17 0904 Objective Remarks GENERAL: This is a well-nourished, well-developed patient, in no apparent distress. SKIN: Warm and dry. HEENT: Normocephalic. Pupils equal round and reactive. Nose without bleeding. Airway patent. NECK: Trachea midline. Supple. Tracheostomy capped. CARDIOVASCULAR: Regular rate and rhythm without murmurs, gallops, or rubs. RESPIRATORY: Clear to auscultation. Breath sounds equal bilaterally. No wheezes , rales, or rhonchi. GASTROINTESTINAL: Abdomen soft, nondistended. Bowel Sounds normoactive x4. PEG in place. Right quadrant tenderness to palpate. MUSCULOSKELETAL: Extremities without clubbing, cyanosis, or edema. NEUROLOGICAL: Awake and alert. Oriented to time, place, person. Moves all extremities weakly. Normal speech. Procedures 03/02/2017 - arterial line and central line placement. 03/25/2017 - central line placement and intubation 06/06/17 -PEG tube replaced (Dr. Estevez). 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 Sandhu is a 61 year old male with a history of alcohol abuse, severe hypernatremia who presented to the ED on 03/02/2017 due to worsening fatigue, weakness that started 13 days prior to this hospitalization. He was found to have significant delirium. He admitted to drinking alcohol as well as taking xanax as well. ED work up indicated Na 99, Bilirubin 8.9, Lactate 9.8, Ammonia 60, CK 7000, troponin 4.9, Creatinine 1.5, bicarb 13. His WBC was 12, Platelets 112, INR 1.9. Meld score 26. He was severely dehydrated. Patient was started on isotonic saline in an effort to improve hypovolemia. Patients sodium corrected too rapidly. Patient was treated for distributive shock, alcohol withdrawal and electrolyte imbalances in the ICU. C. Diff: Flagyl stop date 07/08. Thrush: oral nystatin stop date 07/10. Osmotic demyelination syndrome Chronic severe hyponatremia Bilateral thalamic stroke Seizures - Continue Keppra 1000 mg PO every 12 hours. - Lorazepam 1 mg every 12 hours PO for seizures. - Seizure precaution Alcoholic liver disease Alcohol dependence Lower extremity thigh edema, improving - CT abdomen shows liver cirrhosis. - Continue folic acid and thiamine. - Furosemide 20 mg PO daily. - KCL EFF 25 meq PO daily while on Lasix. - Monitor UO, electrolytes and intake closely while on diuretics. - PT and OT services continue, endurance is currently poor/highly limited. Acute hypoxemic and hypercapnic respiratory failure - Pulmonology following. - Status post tracheostomy on 04/16/2017. Encourage use of PMV as tolerated. - Continue Mucolytics and Mucinex. - Continue Duonebs scheduled. Depression Insomnia - Trazodone 75 mg PO HS; improved sleep reported. Monitor for over sedation. - Monitor for suicidal ideation. No suicidal ideation at this time. Upper respiratory bacterial infection, acute on chronic: Likely colonization and source of active infection. - Sputum culture growing Pseudomonas aeruginosa and Group D Enterococcus on 05/30/17. - Levaquin course completed. - DC Mucinex- patient having much less secretions Urinary tract infection, reinfection. - Urine culture + Klebsiella pneumoniae and Enterococcus faecalis on . Ceftriaxone given and course completed. - Urine culture 06/15/17 growing Acinetobacter Baumannii/Haemol. Repeat urine culture ordered and pending. CBC reviewed today, WBC increased to 12.4. Afebrile. Completed Unasyn 3 g IV q6h (Start 06/20- end 07/04). - Urine culture 07/01 < 10,000 mixed gram positive derrick Prolonged immobility: Continue PT. Continue stretcher chair. Chronic pain: Continue Morphine IR 15 mg q 4hrs. Poor PO intake PEG site infection, resolved. intermitted nausea- improving - PEG site culture growing pseudomonas and Group D Enterococcus on 06/01/17. Removed and status post replacement 06/06/17. - Speech following patient, tolerating PO intake. Recommendations for mechanical soft and thin liquids. Monitor PO intake closely. Monitor for aspiration. - Levaquin (started 06/01/17 - stopped 06/08/17) for infected PEG site. - TF on hold secondary to diarrhea- calorie count requested - Zofran as needed - continue Marinol to stimulate appetite and help with nausea - calorie count to be completed 07/05/17 recommendations continue current diet with ensure and do no need to restart TF at this time Pharyngitis Nuvia Albicans: -Chloraseptic spray -Oral Nystatin stop date 07/10. C. Diff - Flagyl 500 mg TID (stop date:07/08/17) - No diarrhea reported. Abdominal pain/nausea Urinary retention - continue Flomax daily GI prophylaxis: Prevacid DVT Prophylaxis: Heparin Full code. Case discussed with patient, RN, and Dr. Mondragon. Discharge Planning Case management following patient. Plan for discharge either home with [employer] or custodial facility for rehabilitation. Plan is to discharge to [facility] pending patient's financial arrangements. Sena Talbot [facility] Jul 09, 2017 09:57
[2017-07-09] MEDS: levETIRAcetam 500 MG TAB PO SCH ×2 (10:51→21:58)
[2017-07-09] MEDS: FUROSEMIDE 20 MG TAB PO SCH (10:51)
[2017-07-09] MEDS: LACTOBACILLUS ACIDOPHILUS TAB PO SCH ×3 (10:51→17:45)
[2017-07-09] MEDS: PANTOPRAZOLE SOD 20 MG DELAYED RELEASE TAB PO SCH (10:52)
[2017-07-09] MEDS: POTASSIUM CHLORIDE 20 MEQ CONTROLLED RELEASE TAB PO SCH (10:52)
[2017-07-09] MEDS: DOCUSATE SODIUM 50 MG/SENNA 8.6 MG TAB PO SCH (10:52)
[2017-07-09] MEDS: THIAMINE HCL 100 MG TAB PO SCH (10:52)
[2017-07-09] MEDS: MUPIROCIN 2% OINT 1 APPLIC/GM SYR EACH NARE SCH ×2 (10:52→21:56)
[2017-07-09] MEDS: HEPARIN SODIUM - SQ 10,000 UNITS/ML VIAL SQ SCH ×2 (10:53→21:58)
[2017-07-09] MEDS: NYSTATIN SUSP 500,000 U/5 ML CUP SWISH-SWAL SCH ×4 (10:53→21:58)
[2017-07-09] MEDS: TAMSULOSIN HCL 0.4 MG CAP PO SCH (10:53)
[2017-07-09] MEDS: DRONABINOL 2.5 MG CAP PO SCH ×2 (11:00→16:00)
--- NOTE | 2017-07-09 15:47 | HHI.PR ---
Subjective Remarks NO SOB O2 SAT ADEQUATE Objective Vital Signs Date Time Temp Pulse Resp B/P Pulse Ox O2 Delivery O2 Flow Rate FiO2 07/09/17 12:09 98.2 78 19 103/56 96 07/09/17 11:14 94 21 07/09/17 08:09 98.4 74 19 107/65 95 07/09/17 08:00 82 07/09/17 00:00 Room Air 07/08/17 20:34 80 07/08/17 20:00 98.6 76 18 107/67 96 07/08/17 20:00 Room Air 07/08/17 16:54 96 21 07/08/17 16:00 97.7 74 18 106/69 96 I/O 07/08/17 07/08/17 07/08/17 07/09/17 07/09/17 07/09/17 07:00 15:00 23:00 07:00 15:00 23:00 Intake Total 86 ml 0 ml Output Total 400 ml 800 ml 200 ml 150 ml Balance -314 ml -800 ml -200 ml -150 ml Intake Oral 80 ml 0 ml IV Total 6 ml Output Urine Total 400 ml 800 ml 200 ml 150 ml # Bowel Movements 1 1 0 Result Diagram: 07/05/17 0904 Objective Remarks GENERAL: SKIN: Warm and dry. HEAD: Atraumatic. Normocephalic. EYES: Pupils equal and round. No scleral icterus. No injection or drainage. ENT: No nasal bleeding or discharge. Mucous membranes pink and moist. NECK: Trachea midline. No JVD. CARDIOVASCULAR: Regular rate and rhythm. RESPIRATORY: No accessory muscle use. Clear to auscultation. Breath sounds equal bilaterally. GASTROINTESTINAL: Abdomen soft, non-tender, nondistended. Hepatic and splenic margins not palpable. MUSCULOSKELETAL: Extremities without clubbing, cyanosis, or edema. No obvious deformities. NEUROLOGICAL: Awake and alert. No obvious cranial nerve deficits. Motor grossly within normal limits. Five out of 5 muscle strength in the arms and legs. Normal speech. PSYCHIATRIC: Appropriate mood and affect; insight and judgment normal. Assessment and Plan Assessment and Plan ASS RESPIRATORY FAIURE, IMPROVED PNA , IMPROVED ETOH LIVER DISEASE trach capped > 24 hours PLAN O2 NEEDED PULMONARY TOILET trach removed Dale Hunter MD Jul 09, 2017 15:47
[2017-07-09] MEDS: traZODone HCL 50 MG TAB PO SCH (21:57)
[2017-07-09] MEDS: MORPHINE SULFATE 15 MG TAB PO PRN (21:57)
[2017-07-09] MEDS: ONDANSETRON HCL 4 MG/2 ML VIAL IV PRN (21:58)
[2017-07-09] MEDS: SODIUM CHLORIDE 0.9% FLUSH 10 ML FLUSH IVF PRN (22:02)
[2017-07-10] MEDS: ONDANSETRON HCL 4 MG/2 ML VIAL IV PRN ×3 (05:58→20:15)
[2017-07-10] MEDS: SODIUM CHLORIDE 0.9% FLUSH 10 ML FLUSH IVF PRN ×2 (05:59→20:15)
[2017-07-10 08:00] VITALS: BP 107/65; PULSE 67; RESP 20; TEMP 97; O2SAT 97
--- NOTE | 2017-07-10 08:34 | HHI.PR ---
Subjective Remarks NO SOB O2 SAT ADEQUATE Objective Vital Signs Date Time Temp Pulse Resp B/P Pulse Ox O2 Delivery O2 Flow Rate FiO2 07/09/17 21:55 70 16 110/69 07/09/17 20:17 73 07/09/17 20:00 Room Air 07/09/17 20:00 97.2 70 18 110/68 98 07/09/17 12:09 98.2 78 19 103/56 96 07/09/17 11:14 94 21 I/O 07/09/17 07/09/17 07/09/17 07/10/17 07/10/17 07/10/17 06:59 14:59 22:59 06:59 14:59 22:59 Intake Total 280 ml 200 ml Output Total 1200 ml 100 ml 125 ml Balance -920 ml 100 ml -125 ml Intake Oral 280 ml 200 ml Output Urine Total 1200 ml 100 ml 125 ml # Bowel Movements 0 Objective Remarks GENERAL: SKIN: Warm and dry. HEAD: Atraumatic. Normocephalic. EYES: Pupils equal and round. No scleral icterus. No injection or drainage. ENT: No nasal bleeding or discharge. Mucous membranes pink and moist. NECK: Trachea midline. No JVD. CARDIOVASCULAR: Regular rate and rhythm. RESPIRATORY: No accessory muscle use. Clear to auscultation. Breath sounds equal bilaterally. GASTROINTESTINAL: Abdomen soft, non-tender, nondistended. Hepatic and splenic margins not palpable. MUSCULOSKELETAL: Extremities without clubbing, cyanosis, or edema. No obvious deformities. NEUROLOGICAL: Awake and alert. No obvious cranial nerve deficits. Motor grossly within normal limits. Five out of 5 muscle strength in the arms and legs. Normal speech. PSYCHIATRIC: Appropriate mood and affect; insight and judgment normal. Assessment and Plan Assessment and Plan ASS RESPIRATORY FAIURE, IMPROVED PNA , IMPROVED ETOH LIVER DISEASE doing well without tracheostomy tube PLAN O2 NEEDED PULMONARY TOILET Dale Hunter MD Jul 10, 2017 08:33
[2017-07-10] MEDS: DOCUSATE SODIUM 50 MG/SENNA 8.6 MG TAB PO SCH (09:00)
[2017-07-10] MEDS: MUPIROCIN 2% OINT 1 APPLIC/GM SYR EACH NARE SCH ×2 (09:00→20:14)
--- NOTE | 2017-07-10 09:25 | HHI.PR ---
Subjective Remarks Follow-up visit hyponatremia, this moderate demyelination syndrome, debilitation. Patient seen and examined today. Reports he's been doing well. As per staff, no acute issues overnight. Patient was then decannulated since yesterday has been tolerating room air. Patient is also reported to be eating well. Patient states he is ready to go for rehabilitation. Denies pain and discomfort. Denies SOB/ dyspnea. Denies chest pain, palpitations, headaches, dizziness. Denies fevers, chills, n/v/d. Denies dysuria. Objective Vitals Vital Signs Date Time Temp Pulse Resp B/P Pulse Ox O2 Delivery O2 Flow Rate FiO2 07/09/17 21:55 70 16 110/69 07/09/17 20:17 73 07/09/17 20:00 Room Air 07/09/17 20:00 97.2 70 18 110/68 98 07/09/17 12:09 98.2 78 19 103/56 96 07/09/17 11:14 94 21 I/O 07/09/17 07/09/17 07/09/17 07/10/17 07/10/17 07/10/17 07:00 15:00 23:00 07:00 15:00 23:00 Intake Total 280 ml 200 ml Output Total 150 ml 1050 ml 100 ml 125 ml Balance -150 ml -770 ml 100 ml -125 ml Intake Oral 280 ml 200 ml Output Urine Total 150 ml 1050 ml 100 ml 125 ml # Bowel Movements 0 0 Imaging Last Impressions Chest X-Ray 07/01/17 0000 Signed Impressions: Service Date/Time: Saturday, July 01, 2017 16:50 - CONCLUSION: Mild left lung base atelectasis and/or infiltrate is seen. Bety Castillo MD Abdomen X-Ray 06/27/17 0000 Signed Impressions: Service Date/Time: June 10:07 - CONCLUSION: No evidence of obstruction. Shyam Cobb MD Abdomen/Pelvis CT 05/08/17 0000 Signed Impressions: Service Date/Time: Monday, May 08, 2017 23:10 - CONCLUSION: Significant fluid throughout the abdomen and the pelvis with what appears to be a cirrhotic appearing liver and splenomegaly. There is significant small bowel wall thickening throughout the lower abdomen and the upper pelvis without evidence of obstruction Milo Muhammad MD Liver Ultrasound 04/15/17 0000 Signed Impressions: Service Date/Time: Saturday, April 15, 2017 09:24 - CONCLUSION: 1. Abnormal appearance of the pancreas with a nonspecific hypoechoic area involving the posterior part of the pancreas along the head and body region. Recommend CT scan of the abdomen with oral and IV contrast further evaluation. 2. Fatty infiltration throughout the liver. 3. There is thickening of the gallbladder wall at 6 mm. This is suggestive of chronic gallbladder disease. 4. Small amount of free fluid adjacent to the liver and spleen in the upper abdomen.. 5. Right-sided pleural effusion. Víctor Rosas MD Head CT 04/12/17 0000 Signed Impressions: Service Date/Time: Wednesday, April 12, 2017 21:30 - CONCLUSION: Pontine encephalomalacia. Left mastoiditis. Casper Alva MD Head Magnetic Resonance Angiography 03/28/17 0000 Signed Impressions: Service Date/Time: March 17:22 - CONCLUSION: Unremarkable examination. K. Bijan Castillo MD Brain MRI 03/28/17 0000 Signed Impressions: Service Date/Time: March 17:22 - CONCLUSION: 1. 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 Small subacute ischemic bilateral thalamic infarcts. 2. There has been no significant change when compared to the prior exam. Yinka Harman MD Lower Extremity Ultrasound 03/25/17 0000 Signed Impressions: Service Date/Time: Saturday, March 25, 2017 22:17 - CONCLUSION: No evidence of DVT. Víctor Rosas MD CT Angiography 03/21/17 0000 Signed Impressions: Service Date/Time: March 00:33 - CONCLUSION: No evidence of pulmonary embolism is identified. Mild atelectasis left lung base. Fluid or phlegm within the trachea. Milo Muhammad MD Abdomen Ultrasound 03/20/17 0000 Signed Impressions: Service Date/Time: Monday, March 20, 2017 11:38 - CONCLUSION: 1. Hepatosplenomegaly without focal lesion. 2. Probable sludge within the lumen of the gallbladder. No intrahepatic duct. Cheo Martínez MD Shoulder X-Ray 03/02/17 1404 Signed Impressions: Service Date/Time: Thursday, March 02, 2017 15:18 - CONCLUSION: No evidence of recent bony injury. Deformity of the lateral left clavicle suggests old healed trauma. Cheo Martínez MD Maxillofacial CT 03/02/17 1342 Signed Impressions: Service Date/Time: Thursday, March 02, 2017 14:52 - CONCLUSION: Negative CT of the facial bones. Cheo Martínez MD Chest CT 03/02/17 1342 Signed Impressions: Service Date/Time: Thursday, March 02, 2017 15:04 - CONCLUSION: 1. Abnormal appearance of the lateral left clavicle suggesting a combination of acute and chronic bony injury. Fracture lucencies without bridging callus is seen the region of the coracoid process. 2. The lungs are clear. No evidence of pneumothorax. 3. Moderate size hiatus hernia. Cheo Martínez MD Cervical Spine CT 03/02/17 1342 Signed Impressions: Service Date/Time: Thursday, March 02, 2017 14:52 - CONCLUSION: Negative CT cervical spine. Cheo Martínez MD Objective Remarks GENERAL: This is a thin-appearing, well-developed patient, in no apparent distress. SKIN: Warm and dry. HEENT: Normocephalic. Pupils equal round and reactive. Nose without bleeding. Airway patent. NECK: Trachea midline. Supple. Previous trach incision site with dressing clean dry and intact. CARDIOVASCULAR: Regular rate and rhythm without murmurs, gallops, or rubs. RESPIRATORY: Clear to auscultation. Breath sounds equal bilaterally. No wheezes , rales, or rhonchi. GASTROINTESTINAL: Abdomen soft, nondistended. Bowel Sounds normoactive x4. PEG in place. MUSCULOSKELETAL: Extremities without clubbing, cyanosis, or edema. NEUROLOGICAL: Awake and alert. Oriented to time, place, person. Moves all extremities weakly. Normal speech. Procedures 03/02/2017 - arterial line and central line placement. 03/25/2017 - central line placement and intubation 06/06/17 -PEG tube replaced (Dr. Estevez). 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 Sandhu is a 61 year old male with a history of alcohol abuse, severe hypernatremia who presented to the ED on 03/02/2017 due to worsening fatigue, weakness that started 13 days prior to this hospitalization. He was found to have significant delirium. He admitted to drinking alcohol as well as taking xanax as well. ED work up indicated Na 99, Bilirubin 8.9, Lactate 9.8, Ammonia 60, CK 7000, troponin 4.9, Creatinine 1.5, bicarb 13. His WBC was 12, Platelets 112, INR 1.9. Meld score 26. He was severely dehydrated. Patient was started on isotonic saline in an effort to improve hypovolemia. Patients sodium corrected too rapidly. Patient was treated for distributive shock, alcohol withdrawal and electrolyte imbalances in the ICU. C. Diff: Flagyl stop date 07/08. Thrush: oral nystatin stop date 07/10. - Denies any diarrhea - Continue with oral care Osmotic demyelination syndrome Chronic severe hyponatremia Bilateral thalamic stroke Seizures - Continue Keppra 1000 mg PO every 12 hours. - Lorazepam 1 mg every 12 hours PO for seizures. - Seizure precaution Alcoholic liver disease Alcohol dependence Lower extremity thigh edema, improving - CT abdomen shows liver cirrhosis. - Continue folic acid and thiamine. - Furosemide 20 mg PO daily. - KCL EFF 25 meq PO daily while on Lasix. - Monitor UO, electrolytes and intake closely while on diuretics. - PT and OT services continue, endurance is currently poor/highly limited. Acute hypoxemic and hypercapnic respiratory failure - Pulmonology following. - Status post tracheostomy on 04/16/2017. Encourage use of PMV as tolerated. - Continue Mucolytics and Mucinex. - Continue Duonebs scheduled. 07/10/17 - Patient decannulated yesterday and has been tolerating well. Depression Insomnia - Trazodone 75 mg PO HS; improved sleep reported. Monitor for over sedation. - Monitor for suicidal ideation. No suicidal ideation at this time. Upper respiratory bacterial infection, acute on chronic: Likely colonization and source of active infection. - Sputum culture growing Pseudomonas aeruginosa and Group D Enterococcus on 05/30/17. - Levaquin course completed. - Resolved Urinary tract infection, reinfection. - Urine culture + Klebsiella pneumoniae and Enterococcus faecalis on . Ceftriaxone given and course completed. - Urine culture 06/15/17 growing Acinetobacter Baumannii/Haemol. Repeat urine culture ordered and pending. CBC reviewed today, WBC increased to 12.4. Afebrile. Completed Unasyn 3 g IV q6h (Start 06/20- end 07/04). - Urine culture 07/01 < 10,000 mixed gram positive derrick - Resolved. Denies complaints of dysuria Prolonged immobility Debilitated - Continue PT. Continue stretcher chair - May benefit with skilled rehabilitation. He agrees with 2 week rehabilitation. - Case management has been involved. Plan to [facility] to [facility] now that he is decannulated. Chronic pain: Continue Morphine IR 15 mg q 4hrs. Poor PO intake PEG site infection, resolved. intermitted nausea- improving - PEG site culture growing pseudomonas and Group D Enterococcus on 06/01/17. Removed and status post replacement 06/06/17. - Speech following patient, tolerating PO intake. Recommendations for mechanical soft and thin liquids. Monitor PO intake closely. Monitor for aspiration. - Levaquin (started 06/01/17 - stopped 06/08/17) for infected PEG site. - Zofran as needed - continue Marinol to stimulate appetite and help with nausea - calorie count to be completed 07/05/17 recommendations continue current diet with ensure and do no need to restart TF at this time. - Patient has improved by mouth intake. And has not been using to feed since 07/05/17. Reconsult GI for PEG tube discontinuation. Pharyngitis Nuvia Albicans: -Chloraseptic spray -Oral Nystatin stop date 07/10/17 - Improved. C. Diff - Flagyl 500 mg TID (stop date:07/08/17) - No diarrhea reported. Abdominal pain/nausea Urinary retention - continue Flomax daily GI prophylaxis: Prevacid DVT Prophylaxis: Heparin Full code. Case discussed with patient, RN, and Dr. Sebastian Discharge Planning Case management following patient. Plan to discharge to [facility]iary facility. Patient is not decannulated. Sena Talbot [facility] Jul 10, 2017 09:25
[2017-07-10] MEDS: LACTOBACILLUS ACIDOPHILUS TAB PO SCH ×3 (09:31→16:36)
[2017-07-10] MEDS: TAMSULOSIN HCL 0.4 MG CAP PO SCH (09:31)
[2017-07-10] MEDS: THIAMINE HCL 100 MG TAB PO SCH (09:31)
[2017-07-10] MEDS: NYSTATIN SUSP 500,000 U/5 ML CUP SWISH-SWAL SCH (09:32)
[2017-07-10] MEDS: PANTOPRAZOLE SOD 20 MG DELAYED RELEASE TAB PO SCH (09:32)
[2017-07-10] MEDS: FUROSEMIDE 20 MG TAB PO SCH (09:32)
[2017-07-10] MEDS: POTASSIUM CHLORIDE 20 MEQ CONTROLLED RELEASE TAB PO SCH (09:32)
[2017-07-10] MEDS: HEPARIN SODIUM - SQ 10,000 UNITS/ML VIAL SQ SCH ×2 (09:32→20:14)
[2017-07-10] MEDS: levETIRAcetam 500 MG TAB PO SCH ×2 (09:32→20:14)
[2017-07-10] MEDS: DRONABINOL 2.5 MG CAP PO SCH ×2 (11:28→16:36)
[2017-07-10 11:30] VITALS: O2SAT 98
[2017-07-10 12:00] VITALS: BP 100/61; PULSE 79; RESP 22; TEMP 97.9; O2SAT 96
--- NOTE | 2017-07-10 13:33 | HHI.HCPN ---
Reason for visit a. To assist with evaluation and management of symptoms including: dyspnea, pain. b. To assist medical decision maker(s) with: better understanding of current medical conditions; weighing benefits/burdens of medical treatment options; making medical treatment decisions. . Subjective/Interval History Mr. Sandhu is a 61 y/o male with a diagnosis of osmotic demyelination syndrome. Patient status post PEG tube placement on 04/15/17 and tracheostomy on 04/16/17. He is now decannulated as of 07/09/17, PEG tube removed 07/10/17. Patient was seen in medical floor, resting in bed in no acute distress. Alert to self, place and situation. Verbal and able to communicate needs. Drinking juice without swallowing difficulty. Patient denies pain, shortness of breath, nausea vomiting or discomfort other than "been in bed". Patient reports skin breakdown secondary to bedrest, currently on air mattress. Patient remains afebrile, stable hemodynamically. Tolerated room air, oxygen saturation in the mid to high 90s. Most recent laboratory 07/03/17; WBC 5.6, Hgb stable and 9.7, platelet count 116. Liver enzymes remain elevated, history of chronic EtOH use. Patient tells me that he has been working with case management for disposition. Likely to [facility] for [facility]ening. Patient tells me that goal of therapy is to return home once his daughter Tamanna has been released from [facility], likely August/September. Patient able to participating in medical decision-making. Discussed with patient that he remains a high risk for further complications, continue decline and given his debilitated condition and prolonged hospitalization. Discussed risks , benefits and limitations of CPR, intubation and mechanical ventilation. Patient electing to remain full code upon discharge. He verbalized that returning to the hospital, intubation, mechanical ventilation, tracheostomy and/ or PEG tube would be acceptable to him. Patient verbalized appreciation for all the care received since admission, tearful. Active listening and ongoing emotional support provided. . Family/friend interactions No family at bedside. . Advance Directives Living Will: Never completed Health Care Surrogate: Never completed Durable Power of Job Analysis Manager: Never completed Advance Directive Specifics Health Care Surrogate(s): Margot Nolen is, per [place] statues bam care decision proxy. Now in [facility] (#[phone]). Facilitation of conversations with Tamanna can be arranged through booking (#[phone]) in emergency situations to address goals of care.Ask for a Brownfield on staff as shifts rotate throughout the week. Significant change in goals: Full code. Goals of care remain unchanged. . Objective Vital Signs Date Time Temp Pulse Resp B/P Pulse Ox O2 Delivery O2 Flow Rate FiO2 07/10/17 09:21 Room Air 07/10/17 08:00 97.0 67 20 107/65 97 07/09/17 21:55 70 16 110/69 07/09/17 20:17 73 07/09/17 20:00 Room Air 07/09/17 20:00 97.2 70 18 110/68 98 Intake & Output 07/10/17 07/10/17 07:00 19:00 Intake Total 200 ml Output Total 225 ml Balance -25 ml Intake Oral 200 ml Output Urine Total 225 ml Physical Exam CONSTITUTIONAL/GENERAL: This is an thin, pale patient in no apparent distress. TUBES/LINES/DRAINS: SCDs. Bilateral heel boots. SKIN: Ecchymosis bilateral UEs. Skin temperature appropriate. Dry, flaky skin. CARDIOVASCULAR: Regular rate and rhythm. RESPIRATORY/CHEST: Symmetric, unlabored breathing. GASTROINTESTINAL: Abdomen round, soft, nontender. Positive bowel sounds. GENITOURINARY: Without palpable bladder distension. MUSCULOSKELETAL: No mottling or clubbing. Moving all extremities. NEUROLOGICAL: Awake, alert to self, place and situation. Verbal, able to communicate needs. Following commands. PSYCHIATRIC: Calm. Tearful at times. . Diagnostic Tests Procedures * 07/10/17 -PEG tube removed * 07/09/17 -tracheostomy decannulated * 06/06/17 -PEG tube replaced * 04/16/17 -tracheostomy placement * 04/16/17 -endotracheal extubation * 04/15/17 - PEG tube placed. * 03/25/17 -Endotracheal intubation. . Assessment and Plan Disease Oriented Problem List: (1) Osmotic myelinolysis (2) Central pontine myelinolysis (3) Liver disease (4) Seizure Symptom Scale: (1) Dyspnea 0-10 Scale: Unable to quantify Comment: Tolerating room air. (2) Pain 0-10 Scale: 0 Comment: Prolonged hospitalization/bedrest, muscular weakness and atrophy. (3) Debility 0-10 Scale: Unable to quantify Comment: Secondary to acute illness and prolonged hospitalization. Pertinent Non-Medical Issues Psychosocial: 61-year-old with long-standing history of alcohol use and abuse, 1 daughter who is incarcerated in the [facility]. Spiritual: No reported. Legal: Daughter Tamanna owen, per [facility] bam care decision proxy. She is currently incarcerated at [facility]. They are permitting her to participate in decisions at this time. Ethical issues impacting care: As stated above. . Important Contacts * Tamanna Sandhu, daughter/ HCP: Margot Nolen is, per [place] [facility] care decision proxy. . Now in [facility] (#[phone]). Facilitation of conversations with Tamanna can be arranged through booking (#[phone]) in emergency situations to address goals of care.Ask for a Brownfield on staff as shifts rotate throughout the week. * Guillermo Roberts, daughter friend: [phone] (cell)- has frequent contact w Amie - has been very helpful. Prognosis Mr. Sandhu is a 61-year-old male diagnosed with osmotic demyelination syndrome. Status post tracheostomy and PEG tube placement. Patient with improved physical mobility, participating in PT. Remains bedbound at this time. Likely requiring long-term placement. Patient remains at high risk for further complications, continue decline and . . Code Status: Full Code Plan * HEALTHCARE DECISION-MAKING: Patient participating in healthcare decision- making. Patient is , according to [place] statute, health care proxy decision making falls to his only daughter, Tamanna. Now in [facility] (#[phone]). Facilitation of conversations with Tamanna can be arranged through booking (#[phone]) in emergency situations to address goals of care. Ask for a Brownfield on staff as shifts rotate throughout the week. * FULL CODE. Code status rediscussed 07/10/17, patient electing to remain full code upon discharge. He verbalized that returning to hospital, intubation, mechanical ventilation, tracheostomy and/or PEG tube would be acceptable to him. * GOALS OF CARE: 07/10/17 -continue current medical management. As per patient goal of therapy is to [facility] to [facility] for [facility]/ physical strengthening. Ultimate goal is to return home with the assistance of his daughter Tamanna once she is released from [facility] retirement, likely August/ September. Discussed with patient that he remains a high risk for further complications, continue decline and given his debilitated condition and prolonged hospitalization. He verbalized understanding. * SYMPTOMS: =Dyspnea: Resolved. Tracheostomy decannulated 07/09/17. Currently tolerating room. =Debility: Secondary to burden of disease, acute illness and prolonged hospitalization. Significant improvement in muscle strength, continues participating in physical therapy. Likely to discharge to [facility] facility for rehabilitation. =Pain: secondary to prolonged hospitalization, tubes and bedrest. Morphine 15 mg Q4h PRN available. =Insomnia , currently on trazodone 75 mg at at bedtime. * Patient verbalized appreciation for all the care received since admission, tearful. Active listening and ongoing emotional support provided. * Palliative care contact information has been provided to patient's daughter and her boyfriend. * Palliative care will continue to follow as needed for further clarifications of goals of care/emotional support as patient's clinical course continues to evolve. . Time Spent Total Floor Time (mins): 28 (Total time to include review medical records, physical exam and goals of care conversation with patient.) >50% Counseling/Coord of Care: Yes Attestation To help prompt me to consider important information that might be impacting today's encounter and assessment, information from prior notes written by myself or my colleagues may have been "brought forward" into today's note. My signature on this note, however, is an attestation that I personally performed the exam, history, and/or decision-making noted today, and, unless otherwise indicated, the interactions with patient, family, and staff as well as the review of records all occurred today. I also attest that the listed assessment and stated plan reflect my best clinical judgment today based on the combination of historical information, prior notes, and today's exam/ interactions. When time spent is documented, it refers only to time spent today by the signer, or if indicated, combined time spent today by collaborating physician/nurse practitioner. Melissa Mcclure Jul 10, 2017 13:33
--- NOTE | 2017-07-10 14:39 | HHI.GIFU ---
Subjective Remarks Reconsulted for PEG tube removal. Nurse reports that they are not using PEG tube. S/P Calorie count, per wellness manager, okay to leave TF off. Pt eating 75-100 % of meals. Pt denies any difficulty swallowing and states he has a good appetite and is "eating fine." Objective Vitals I&O Vital Signs Date Time Temp Pulse Resp B/P Pulse Ox O2 Delivery O2 Flow Rate FiO2 07/10/17 12:00 97.9 79 22 100/61 96 07/10/17 11:30 98 21 07/10/17 09:21 Room Air 07/10/17 08:00 97.0 67 20 107/65 97 07/09/17 21:55 70 16 110/69 07/09/17 20:17 73 07/09/17 20:00 Room Air 07/09/17 20:00 97.2 70 18 110/68 98 I/O 07/09/17 07/09/17 07/09/17 07/10/17 07/10/17 07/10/17 07:00 15:00 23:00 07:00 15:00 23:00 Intake Total 280 ml 200 ml Output Total 150 ml 1050 ml 100 ml 125 ml Balance -150 ml -770 ml 100 ml -125 ml Intake Oral 280 ml 200 ml Output Urine Total 150 ml 1050 ml 100 ml 125 ml # Bowel Movements 0 0 Imaging Last Impressions Chest X-Ray 07/01/17 0000 Signed Impressions: Service Date/Time: Saturday, July 01, 2017 16:50 - CONCLUSION: Mild left lung base atelectasis and/or infiltrate is seen. Bety Castillo MD Abdomen X-Ray 06/27/17 0000 Signed Impressions: Service Date/Time: June 10:07 - CONCLUSION: No evidence of obstruction. Shyam Cobb MD Abdomen/Pelvis CT 05/08/17 0000 Signed Impressions: Service Date/Time: Monday, May 08, 2017 23:10 - CONCLUSION: Significant fluid throughout the abdomen and the pelvis with what appears to be a cirrhotic appearing liver and splenomegaly. There is significant small bowel wall thickening throughout the lower abdomen and the upper pelvis without evidence of obstruction Milo Muhammad MD Liver Ultrasound 04/15/17 0000 Signed Impressions: Service Date/Time: Saturday, April 15, 2017 09:24 - CONCLUSION: 1. Abnormal appearance of the pancreas with a nonspecific hypoechoic area involving the posterior part of the pancreas along the head and body region. Recommend CT scan of the abdomen with oral and IV contrast further evaluation. 2. Fatty infiltration throughout the liver. 3. There is thickening of the gallbladder wall at 6 mm. This is suggestive of chronic gallbladder disease. 4. Small amount of free fluid adjacent to the liver and spleen in the upper abdomen.. 5. Right-sided pleural effusion. Víctor Rosas MD Head CT 04/12/17 0000 Signed Impressions: Service Date/Time: Wednesday, April 12, 2017 21:30 - CONCLUSION: Pontine encephalomalacia. Left mastoiditis. Casper Alva MD Head Magnetic Resonance Angiography 03/28/17 0000 Signed Impressions: Service Date/Time: March 17:22 - CONCLUSION: Unremarkable examination. KShiv Castillo MD Brain MRI 03/28/17 0000 Signed Impressions: Service Date/Time: March 17:22 - CONCLUSION: 1. 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 Small subacute ischemic bilateral thalamic infarcts. 2. There has been no significant change when compared to the prior exam. Yinka Harman MD Lower Extremity Ultrasound 03/25/17 0000 Signed Impressions: Service Date/Time: Saturday, March 25, 2017 22:17 - CONCLUSION: No evidence of DVT. Víctor Rosas MD CT Angiography 03/21/17 0000 Signed Impressions: Service Date/Time: March 00:33 - CONCLUSION: No evidence of pulmonary embolism is identified. Mild atelectasis left lung base. Fluid or phlegm within the trachea. Milo Muhammad MD Abdomen Ultrasound 03/20/17 0000 Signed Impressions: Service Date/Time: Monday, March 20, 2017 11:38 - CONCLUSION: 1. Hepatosplenomegaly without focal lesion. 2. Probable sludge within the lumen of the gallbladder. No intrahepatic duct. Cheo Martínez MD Shoulder X-Ray 03/02/17 1404 Signed Impressions: Service Date/Time: Thursday, March 02, 2017 15:18 - CONCLUSION: No evidence of recent bony injury. Deformity of the lateral left clavicle suggests old healed trauma. Cheo Martínez MD Maxillofacial CT 03/02/17 1342 Signed Impressions: Service Date/Time: Thursday, March 02, 2017 14:52 - CONCLUSION: Negative CT of the facial bones. Cheo Martínez MD Chest CT 03/02/17 1342 Signed Impressions: Service Date/Time: Thursday, March 02, 2017 15:04 - CONCLUSION: 1. Abnormal appearance of the lateral left clavicle suggesting a combination of acute and chronic bony injury. Fracture lucencies without bridging callus is seen the region of the coracoid process. 2. The lungs are clear. No evidence of pneumothorax. 3. Moderate size hiatus hernia. Cheo Martínez MD Cervical Spine CT 03/02/17 1342 Signed Impressions: Service Date/Time: Thursday, March 02, 2017 14:52 - CONCLUSION: Negative CT cervical spine. Cheo Martínez MD Physical Exam HEENT: Normocephalic; atraumatic; poor dentition CHEST: Coarse sounds drsg from tracheostomy site-removed yesterday CARDIAC: RRR ABDOMEN: Abdomen soft, nondistended, Bowel sounds present. PEG tube site without redness or swelling, no active bleeding, swelling. EXTREMITIES: no cyanosis, edema SKIN: no rash; no jaundice. WEATHER FORCASTER: awake, follows commands Assessment and Plan Plan ASSESSMENT: Dysphagia/Malnutrition. S/P peg replacement (06/06/17). S/P Calorie count 8/4, Pt is drinking supplements TID. On a regular, soft diet. Okay to NOT resume TFs, Continue Ensure TID, Will monitor PO intake, Dietitian following. Eating most meals 75-100%. GI reconsulted for peg tube removal. This was removed at bedside without difficulty. - PEG tube site infection. Pt had a previous PEG tube placed on 04/15/[address] Curran. PEG was accidentally dislodged on 05/31/17. Site had erythema/drainage, cx grew psae, enterococcus D. s/p tx. S/P EGD with peg tube placement (06/06/17)----> Esophageal varices, successful PEG tube placement. - Alcoholic liver disease/evidence of cirrhosis. Pt with hx of alcohol abuse. MELD 25. CT Abd/pelvis (6-7-17) --> significant fluid throughout abdomen and pelvis with what appears to be cirrhotic looking liver and splenomegaly, significant sm bowel wall thickening throughout lower abd and upper pelvis w/o evidence obstruction.He was noted to have varices on EGD, no bleeding. - Anemia. No active bleeding. - Resp. Failure/PNA. Has passey cheri valve in place. 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 thalamic CVA. S/P Neuro eval. - Leukocytosis with UTI (S/P Tx), PNA. S/P tx - CHF, Hx hypothyroidism per [facility] PLAN: - S/P PEG tube removal - Soft diet with ensure TID - GI will sign off, please reconsult as needed - Pt seen and examined by Dr. Alejandra and myself and this note is written on his behalf Maggie Mederos Jul 10, 2017 14:39
[2017-07-10 16:00] VITALS: BP 95/55; PULSE 76; RESP 20; TEMP 97.9; O2SAT 97
[2017-07-10] MEDS: MORPHINE SULFATE 15 MG TAB PO PRN ×2 (16:36→20:14)
[2017-07-10 20:00] VITALS: BP 100/66; PULSE 65; RESP 20; TEMP 96.3; O2SAT 98
[2017-07-10] MEDS: traZODone HCL 50 MG TAB PO SCH (20:14)
[2017-07-11 08:00] VITALS: BP 97/60; PULSE 71; RESP 20; TEMP 95.8; O2SAT 98
[2017-07-11] MEDS: MUPIROCIN 2% OINT 1 APPLIC/GM SYR EACH NARE SCH (08:19)
[2017-07-11] MEDS: LACTOBACILLUS ACIDOPHILUS TAB PO SCH (08:19)
[2017-07-11] MEDS: levETIRAcetam 500 MG TAB PO SCH (08:19)
[2017-07-11] MEDS: PANTOPRAZOLE SOD 20 MG DELAYED RELEASE TAB PO SCH (08:19)
[2017-07-11] MEDS: THIAMINE HCL 100 MG TAB PO SCH (08:19)
[2017-07-11] MEDS: TAMSULOSIN HCL 0.4 MG CAP PO SCH (08:19)
[2017-07-11] MEDS: POTASSIUM CHLORIDE 20 MEQ CONTROLLED RELEASE TAB PO SCH (08:20)
[2017-07-11] MEDS: DOCUSATE SODIUM 50 MG/SENNA 8.6 MG TAB PO SCH (08:20)
[2017-07-11] MEDS: FUROSEMIDE 20 MG TAB PO SCH (08:20)
[2017-07-11] MEDS: HEPARIN SODIUM - SQ 10,000 UNITS/ML VIAL SQ SCH (08:20)
--- NOTE | 2017-07-11 08:48 | HHI.PR ---
Subjective Remarks Follow-up visit osmotic demyelination syndrome, debilitation, trach decannulated , peg discontinued. Patient seen and examined today. Reports he is doing very well. States his abdomen does not have the tube and there is no pain. Patient states he is ready for rehabilitation. Denies pain and discomfort. Denies SOB / dyspnea. Denies chest pain, palpitations, headaches, dizziness. Denies fevers , chills, n/v/d. Denies dysuria. Objective Vitals Vital Signs Date Time Temp Pulse Resp B/P Pulse Ox O2 Delivery O2 Flow Rate FiO2 07/11/17 08:24 Room Air 07/10/17 20:00 96.3 65 20 100/66 98 07/10/17 16:00 97.9 76 20 95/55 97 07/10/17 12:00 97.9 79 22 100/61 96 07/10/17 11:30 98 21 07/10/17 09:21 Room Air I/O 07/10/17 07/10/17 07/10/17 07/11/17 07/11/17 07/11/17 07:00 15:00 23:00 07:00 15:00 23:00 Intake Total 0 ml 480 ml Output Total 125 ml 475 ml Balance -125 ml 0 ml 5 ml Intake Oral 0 ml 480 ml Output Urine Total 125 ml 475 ml # Voids 0 # Bowel Movements 1 Imaging Last Impressions Chest X-Ray 07/01/17 0000 Signed Impressions: Service Date/Time: Saturday, July 01, 2017 16:50 - CONCLUSION: Mild left lung base atelectasis and/or infiltrate is seen. Bety Castillo MD Abdomen X-Ray 06/27/17 0000 Signed Impressions: Service Date/Time: June 10:07 - CONCLUSION: No evidence of obstruction. Shyam Cobb MD Abdomen/Pelvis CT 05/08/17 0000 Signed Impressions: Service Date/Time: Monday, May 08, 2017 23:10 - CONCLUSION: Significant fluid throughout the abdomen and the pelvis with what appears to be a cirrhotic appearing liver and splenomegaly. There is significant small bowel wall thickening throughout the lower abdomen and the upper pelvis without evidence of obstruction Milo Muhammad MD Liver Ultrasound 04/15/17 0000 Signed Impressions: Service Date/Time: Saturday, April 15, 2017 09:24 - CONCLUSION: 1. Abnormal appearance of the pancreas with a nonspecific hypoechoic area involving the posterior part of the pancreas along the head and body region. Recommend CT scan of the abdomen with oral and IV contrast further evaluation. 2. Fatty infiltration throughout the liver. 3. There is thickening of the gallbladder wall at 6 mm. This is suggestive of chronic gallbladder disease. 4. Small amount of free fluid adjacent to the liver and spleen in the upper abdomen.. 5. Right-sided pleural effusion. Víctor Rosas MD Head CT 04/12/17 0000 Signed Impressions: Service Date/Time: Wednesday, April 12, 2017 21:30 - CONCLUSION: Pontine encephalomalacia. Left mastoiditis. Casper Alva MD Head Magnetic Resonance Angiography 03/28/17 0000 Signed Impressions: Service Date/Time: March 17:22 - CONCLUSION: Unremarkable examination. KShiv Castillo MD Brain MRI 03/28/17 0000 Signed Impressions: Service Date/Time: March 17:22 - CONCLUSION: 1. 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 Small subacute ischemic bilateral thalamic infarcts. 2. There has been no significant change when compared to the prior exam. Yinka Harman MD Lower Extremity Ultrasound 03/25/17 0000 Signed Impressions: Service Date/Time: Saturday, March 25, 2017 22:17 - CONCLUSION: No evidence of DVT. Víctor Rosas MD CT Angiography 03/21/17 0000 Signed Impressions: Service Date/Time: March 00:33 - CONCLUSION: No evidence of pulmonary embolism is identified. Mild atelectasis left lung base. Fluid or phlegm within the trachea. Milo Muhammad MD Abdomen Ultrasound 03/20/17 0000 Signed Impressions: Service Date/Time: Monday, March 20, 2017 11:38 - CONCLUSION: 1. Hepatosplenomegaly without focal lesion. 2. Probable sludge within the lumen of the gallbladder. No intrahepatic duct. Cheo Martínez MD Shoulder X-Ray 03/02/17 1404 Signed Impressions: Service Date/Time: Thursday, March 02, 2017 15:18 - CONCLUSION: No evidence of recent bony injury. Deformity of the lateral left clavicle suggests old healed trauma. Cheo Martínez MD Maxillofacial CT 03/02/17 1342 Signed Impressions: Service Date/Time: Thursday, March 02, 2017 14:52 - CONCLUSION: Negative CT of the facial bones. Cheo aMrtínez MD Chest CT 03/02/17 1342 Signed Impressions: Service Date/Time: Thursday, March 02, 2017 15:04 - CONCLUSION: 1. Abnormal appearance of the lateral left clavicle suggesting a combination of acute and chronic bony injury. Fracture lucencies without bridging callus is seen the region of the coracoid process. 2. The lungs are clear. No evidence of pneumothorax. 3. Moderate size hiatus hernia. Cheo Martínez MD Cervical Spine CT 03/02/17 1342 Signed Impressions: Service Date/Time: Thursday, March 02, 2017 14:52 - CONCLUSION: Negative CT cervical spine. Cheo Martínez MD Objective Remarks GENERAL: This is a thin-appearing, well-developed patient, in no apparent distress. SKIN: Warm and dry. HEENT: Normocephalic. Pupils equal round and reactive. Nose without bleeding. Airway patent. NECK: Trachea midline. Supple. Previous trach incision site with dressing clean dry and intact. CARDIOVASCULAR: Regular rate and rhythm without murmurs, gallops, or rubs. RESPIRATORY: Diminished bases. No wheezes, rales, or rhonchi. GASTROINTESTINAL: Abdomen soft, nondistended. Bowel Sounds normoactive x4. Previous PEG insertion site with dressing clean dry and intact. MUSCULOSKELETAL: Extremities without clubbing, cyanosis, or edema. NEUROLOGICAL: Awake and alert. Oriented to place, person. Moves all extremities weakly. Normal speech. Procedures 03/02/2017 - arterial line and central line placement. 03/25/2017 - central line placement and intubation 06/06/17 -PEG tube replaced (Dr. Estevez). 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 Sandhu is a 61 year old male with a history of alcohol abuse, severe hypernatremia who presented to the ED on 03/02/2017 due to worsening fatigue, weakness that started 13 days prior to this hospitalization. He was found to have significant delirium. He admitted to drinking alcohol as well as taking xanax as well. ED work up indicated Na 99, Bilirubin 8.9, Lactate 9.8, Ammonia 60, CK 7000, troponin 4.9, Creatinine 1.5, bicarb 13. His WBC was 12, Platelets 112, INR 1.9. Meld score 26. He was severely dehydrated. Patient was started on isotonic saline in an effort to improve hypovolemia. Patients sodium corrected too rapidly. Patient was treated for distributive shock, alcohol withdrawal and electrolyte imbalances in the ICU. C. Diff: Flagyl stop date 07/08. Thrush: oral nystatin stop date 07/10. - Denies any diarrhea - Continue with oral care - Improved oral candidiasis Osmotic demyelination syndrome Chronic severe hyponatremia Bilateral thalamic stroke Seizures - Continue Keppra 1000 mg PO every 12 hours. - Seizure precaution Alcoholic liver disease Alcohol dependence Lower extremity thigh edema, improving - CT abdomen shows liver cirrhosis. - Continue folic acid and thiamine. - Furosemide 20 mg PO daily. - KCL EFF 20 meq PO daily while on Lasix. - PT and OT services continue, endurance is currently poor/highly limited. Acute hypoxemic and hypercapnic respiratory failure - Pulmonology following. - Status post tracheostomy on 04/16/2017. Encourage use of PMV as tolerated. - Continue Mucolytics and Mucinex. - Continue Duonebs scheduled. 07/10/17 - Patient decannulated yesterday and has been tolerating well. Depression Insomnia - Trazodone 75 mg PO HS; improved sleep reported. Monitor for over sedation. - Monitor for suicidal ideation. No suicidal ideation at this time. Upper respiratory bacterial infection, acute on chronic: Likely colonization and source of active infection. - Sputum culture growing Pseudomonas aeruginosa and Group D Enterococcus on 05/30/17. - Levaquin course completed. - Resolved Urinary tract infection, reinfection. - Urine culture + Klebsiella pneumoniae and Enterococcus faecalis on . Ceftriaxone given and course completed. - Urine culture 06/15/17 growing Acinetobacter Baumannii/Haemol. Repeat urine culture ordered and pending. CBC reviewed today, WBC increased to 12.4. Afebrile. Completed Unasyn 3 g IV q6h (Start 06/20- end 07/04). - Urine culture 07/01 < 10,000 mixed gram positive derrick - Resolved. Denies complaints of dysuria Prolonged immobility Debilitated - Continue PT. Continue stretcher chair - May benefit with skilled rehabilitation. He agrees with 2 week rehabilitation. - Case management has been involved. Plan to discharge patient to snf facility now that he is decannulated. Chronic pain: Continue Morphine IR 15 mg q 4hrs. Poor PO intake PEG site infection, resolved. intermitted nausea- improving - PEG site culture growing pseudomonas and Group D Enterococcus on 06/01/17. Removed and status post replacement 06/06/17. - Speech following patient, tolerating PO intake. Recommendations for mechanical soft and thin liquids. Monitor PO intake closely. Monitor for aspiration. - Levaquin (started 06/01/17 - stopped 06/08/17) for infected PEG site. - Zofran as needed - continue Marinol to stimulate appetite and help with nausea - calorie count to be completed 07/05/17 recommendations continue current diet with ensure and do no need to restart TF at this time. - Patient has improved by mouth intake. And has not been using to feed since 07/05/17. Reconsult GI for PEG tube discontinuation. - PEG Dcd yesterday. Denies any complaints. Urinary retention - continue Flomax daily GI prophylaxis: Prevacid DVT Prophylaxis: Heparin Full code. Case discussed with patient, RN, and Dr. Sebastian Discharge Planning Case management following patient. Plan to discharge to snf facility today. Patient is decannulated/ PEG discontinued. Sena Talbot Jul 11, 2017 08:48
--- NOTE | 2017-07-11 09:22 | HHI.DS ---
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 03/25/2017 - central line placement and intubation 06/06/17 -PEG tube replaced (Dr. Estevez). Brief History - From Admission This is a 61-year-old male with a past history of alcohol abuse and a prior admission in 2014 for severe life-threatening hyponatremia at that time with a serum sodium of 98. He presents today with what he states is a 13 day history of worsening fatigue and weakness. He is very altered and is very difficult to understand the patient. What I can understand from him, is that at some point during these 13 days he has fallen and hit his face. Otherwise he states he lays on the couch, and has not gotten not much. He states he drinks 1 beer in the morning, and 1 beer in the afternoon. He does endorse taking some Xanax to help him sleep. He denies other drug use. He denies chest pain, shortness of breath, fever, chills, nausea, vomiting, abdominal pain. It is very difficult to get him to answer anymore questions about his medical history. His speech is very slurred and he is trying to talk about how he misses his daughter. Emergency department he was found to have a serum sodium of 99, a bilirubin of 8.9, lactate of 9.8, ammonia of 60, CK of 7000, elevated troponin of 4.9 with a normal MB ratio, creatinine 1.5, serum bicarbonate of 13. His white count is 12 , platelets 112. INR 1.9. His MELD calculates at 26. Imaging Last Impressions Chest X-Ray 07/01/17 0000 Signed Impressions: Service Date/Time: Saturday, July 01, 2017 16:50 - CONCLUSION: Mild left lung base atelectasis and/or infiltrate is seen. Bety Castillo MD Abdomen X-Ray 06/27/17 0000 Signed Impressions: Service Date/Time: June 10:07 - CONCLUSION: No evidence of obstruction. Shyam Cobb MD Abdomen/Pelvis CT 05/08/17 Signed Impressions: Service Date/Time: Monday, May 08, 2017 23:10 - CONCLUSION: Significant fluid throughout the abdomen and the pelvis with what appears to be a cirrhotic appearing liver and splenomegaly. There is significant small bowel wall thickening throughout the lower abdomen and the upper pelvis without evidence of obstruction Milo Muhammad MD Liver Ultrasound 04/15/17 0000 Signed Impressions: Service Date/Time: Saturday, April 15, 2017 09:24 - CONCLUSION: 1. Abnormal appearance of the pancreas with a nonspecific hypoechoic area involving the posterior part of the pancreas along the head and body region. Recommend CT scan of the abdomen with oral and IV contrast further evaluation. 2. Fatty infiltration throughout the liver. 3. There is thickening of the gallbladder wall at 6 mm. This is suggestive of chronic gallbladder disease. 4. Small amount of free fluid adjacent to the liver and spleen in the upper abdomen.. 5. Right-sided pleural effusion. Víctor Rosas MD Head CT 04/12/17 0000 Signed Impressions: Service Date/Time: Wednesday, April 12, 2017 21:30 - CONCLUSION: Pontine encephalomalacia. Left mastoiditis. Casper Alva MD Head Magnetic Resonance Angiography 03/28/17 0000 Signed Impressions: Service Date/Time: March 17:22 - CONCLUSION: Unremarkable examination. Bety Castillo MD Brain MRI 03/28/17 0000 Signed Impressions: Service Date/Time: March 17:22 - CONCLUSION: 1. 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 Small subacute ischemic bilateral thalamic infarcts. 2. There has been no significant change when compared to the prior exam. Yinka Harman MD Lower Extremity Ultrasound 03/25/17 0000 Signed Impressions: Service Date/Time: Saturday, March 25, 2017 22:17 - CONCLUSION: No evidence of DVT. Víctor Rosas MD CT Angiography 03/21/17 0000 Signed Impressions: Service Date/Time: March 00:33 - CONCLUSION: No evidence of pulmonary embolism is identified. Mild atelectasis left lung base. Fluid or phlegm within the trachea. Milo Muhammad MD Abdomen Ultrasound 03/20/17 0000 Signed Impressions: Service Date/Time: Monday, March 20, 2017 11:38 - CONCLUSION: 1. Hepatosplenomegaly without focal lesion. 2. Probable sludge within the lumen of the gallbladder. No intrahepatic duct. Cheo Martínez MD Shoulder X-Ray 03/02/17 1404 Signed Impressions: Service Date/Time: Thursday, March 02, 2017 15:18 - CONCLUSION: No evidence of recent bony injury. Deformity of the lateral left clavicle suggests old healed trauma. Cheo Martínez MD Maxillofacial CT 03/02/17 1342 Signed Impressions: Service Date/Time: Thursday, March 02, 2017 14:52 - CONCLUSION: Negative CT of the facial bones. Cheo Martínez MD Chest CT 03/02/17 1342 Signed Impressions: Service Date/Time: Thursday, March 02, 2017 15:04 - CONCLUSION: 1. Abnormal appearance of the lateral left clavicle suggesting a combination of acute and chronic bony injury. Fracture lucencies without bridging callus is seen the region of the coracoid process. 2. The lungs are clear. No evidence of pneumothorax. 3. Moderate size hiatus hernia. Cheo Martínez MD Cervical Spine CT 03/02/17 1342 Signed Impressions: Service Date/Time: Thursday, March 02, 2017 14:52 - CONCLUSION: Negative CT cervical spine. Cheo Martínez MD PE at Discharge GENERAL: This is a thin-appearing, well-developed patient, in no apparent distress. SKIN: Warm and dry. HEENT: Normocephalic. Pupils equal round and reactive. Nose without bleeding. Airway patent. NECK: Trachea midline. Supple. Previous trach incision site with dressing clean dry and intact. CARDIOVASCULAR: Regular rate and rhythm without murmurs, gallops, or rubs. RESPIRATORY: Diminished bases. No wheezes, rales, or rhonchi. GASTROINTESTINAL: Abdomen soft, nondistended. Bowel Sounds normoactive x4. Previous PEG insertion site with dressing clean dry and intact. MUSCULOSKELETAL: Extremities without clubbing, cyanosis, or edema. NEUROLOGICAL: Awake and alert. Oriented to place, person. Moves all extremities weakly. Normal speech. Pt update on day of discharge Follow-up visit osmotic demyelination syndrome, debilitation, trach decannulated , peg discontinued. Patient seen and examined today. Reports he is doing very well. States his abdomen does not have the tube and there is no pain. Patient states he is ready for rehabilitation. Denies pain and discomfort. Denies SOB / dyspnea. Denies chest pain, palpitations, headaches, dizziness. Denies fevers , chills, n/v/d. Denies dysuria. Hospital Course Mr. Sandhu is a 61 year old male with a history of alcohol abuse, severe hypernatremia who presented to the ED on 03/02/2017 due to worsening fatigue, weakness that started 13 days prior to this hospitalization. He was found to have significant delirium. He admitted to drinking alcohol as well as taking xanax as well. ED work up indicated Na 99, Bilirubin 8.9, Lactate 9.8, Ammonia 60, CK 7000, troponin 4.9, Creatinine 1.5, bicarb 13. His WBC was 12, Platelets 112, INR 1.9. Meld score 26. He was severely dehydrated. Patient was started on isotonic saline in an effort to improve hypovolemia. Patients sodium corrected too rapidly. Patient was treated for distributive shock, alcohol withdrawal and electrolyte imbalances in the ICU. He clinically improved and was transferred to the medical floor. His prolonged hospitalization includes treatment of the following conditions: C. Diff: Flagyl completed abx therapy 07/08/17. Resolved. Oral candidiasis completed oral nystatin 07/10/17. Resolved. Osmotic demyelination syndrome Chronic severe hyponatremia Bilateral thalamic stroke Seizures - Continue Keppra 1000 mg PO every 12 hours. - Seizure precaution - No seizure activity recently. Alcoholic liver disease Alcohol dependence Lower extremity thigh edema, improving - CT abdomen shows liver cirrhosis. - Continue folic acid and thiamine, Furosemide 20 mg PO daily, KCL 20 meq PO daily while on Lasix. Acute hypoxemic and hypercapnic respiratory failure Status post tracheostomy on 04/16/2017. Completed antibiotic Levaquin use. 07/10/17 - Patient decannulated Depression Insomnia - Trazodone 75 mg PO HS; improved sleep reported. Urinary tract infection, reinfection. - Urine culture + Klebsiella pneumoniae and Enterococcus faecalis on . Ceftriaxone given and course completed. - Resolved Chronic pain: Continue Morphine IR 15 mg q 4hrs. Poor by mouth intake PEG site infection, resolved Nausea - PEG site culture growing pseudomonas and Group D Enterococcus on 06/01/17. Removed and status post replacement 06/06/17. - Speech following patient, tolerating PO intake. Recommendations for mechanical soft and thin liquids. Monitor PO intake closely. Monitor for aspiration. - Levaquin (started 06/01/17 - stopped 06/08/17) for infected PEG site. - Zofran as needed - continue Marinol to stimulate appetite and help with nausea -PEG has been removed 07/10/17. Patient has been tolerating by mouth diet since 07/05/17 without any difficulty. Appetite is improved with use of Marinol. Urinary retention - continue Flomax daily Prolonged hospitalization - Generalized weakness, debility - Needs physical therapy occupational therapy Patient's overall status have improved. He is now ready for transfer to [facility] facility for further rehabilitation. Pt Condition on Discharge: Good Discharge Disposition: Discharge to SNF Discharge Time: > 30 minutes Discharge Instructions DIET: Follow Instructions for: As Tolerated, No Restrictions Speech Therapy-Diet Recommends: Soft Additional Diet Instructions: Ensure with meals Activities you can perform: Regular-No Restrictions Activities to Avoid: Driving Follow up Referrals: Neurology - 4 Weeks PCP Follow-up - 4 Weeks New Medications: Lactobacillus Acidophilus (Lactobacillus Acidophilus) 1 Tab Tab 1 TAB PO DAILY Nutritional Supplement #30 Ref 0 TAB Acetaminophen (Eq Acetaminophen) 325 Mg Tab 500 MG PO Q6H PRN FEVER Days 30 TAB Albuterol Neb (Albuterol Neb) 2.5 Mg/3 Ml Neb 2.5 MG INH Q2HR NEB PRN SOB/WHEEZING Days 30 NEBULE Dronabinol (Marinol) 2.5 Mg Cap 2.5 MG PO BID@11,16 appetite #6 CAP Furosemide (Furosemide) 20 Mg Tab 20 MG PO DAILY edema Days 30 TAB Heparin Sodium (Porcine) (Heparin Sodium) 10,000 Unit/Ml Inj 5000 UNITS SQ Q12HR dvt prophylaxis Days 14 INJECTION Levetiracetam (Keppra) 500 Mg Tab 1000 MG PO Q12HR Seizure Control Days 30 TAB Morphine IR (Morphine IR) 15 Mg Tab 15 MG PO Q6HR PRN pain 1-10 #12 TAB Pantoprazole (Protonix) 20 Mg Tab 20 MG PO DAILY Dyspepsia Days 30 TAB Potassium Chloride Microencaps (Potassium Chloride Microencaps) 20 Meq Tab 20 MEQ PO DAILY supplement Days 30 TAB Sennosides-Docusate Sodium (Senna Plus 8.6-50 mg) 1 Tab Tab 1 TAB PO DAILY Constipation Days 30 TAB Thiamine HCl (Gnp Vitamin B-1) 100 Mg Tab 100 MG PO DAILY supplement Days 30 TAB Trazodone (Trazodone) 50 Mg Tab 75 MG PO HS Insomnia Days 30 TAB Discontinued Medications: Alprazolam (Xanax) 2 Mg Tab 2 MG PO DAILY PRN ANXIETY Ref 0 TAB Omeprazole (Omeprazole) 20 Mg Tab 20 MG PO DAILY IN THE PM #30 Ref 0 TAB Sena Talbot Jul 11, 2017 09:22
[2017-07-11] MEDS ORDERED: POTA20TA5 PO (09:27)
[2017-07-11] MEDS ORDERED: ACET1TAB86 PO (09:27)
[2017-07-11] MEDS ORDERED: ALBU0.08 INH (09:27)
[2017-07-11] MEDS ORDERED: FURO20TA PO (09:27)
[2017-07-11] MEDS ORDERED: PANT20 PO (09:27)
[2017-07-11] MEDS ORDERED: TRAZ50TA12 PO (09:27)
[2017-07-11] MEDS ORDERED: GNP100TA3 PO (09:27)
[2017-07-11] MEDS ORDERED: LEVE500 PO (09:27)
[2017-07-11] MEDS ORDERED: LACTTAB8 PO (09:27)
[2017-07-11] MEDS ORDERED: SENN1TAB PO (09:27)
[2017-07-11] MEDS ORDERED: HEPA10003 SQ (09:27)
[2017-07-11] MEDS ORDERED: MSIR15 PO (09:33)
[2017-07-11] MEDS ORDERED: DRON2.5 PO (09:33)
--- NOTE | 2017-07-11 09:36 | HHI.DCPOC ---
Discharge Care Plan Diagnosis: (1) Seizure (2) Central pontine myelinolysis (3) Alcoholic liver disease (4) Debility (5) Anxiety Your Health Problems Are: Difficulty with ADL Leg Swelling Exercise Tolerance Goals to Promote Your Health * To prevent worsening of your condition and complications * To maintain your health at the optimal level Directions to Meet Your Goals Take your medications as prescribed Follow your dietary instruction Follow activity as directed Keep your appointments as scheduled Take your immunizations and boosters as scheduled If your symptoms worsen call your PCP, if no PCP go to Urgent Care Center or Emergency Room Smoking is Dangerous to Your Health. Avoid second hand smoke Call the 24-hour hour crisis hotline for domestic abuse at Sena Talbot Jul 11, 2017 09:36
[2017-07-11] MEDS: DRONABINOL 2.5 MG CAP PO SCH (11:00)
[2017-07-11 12:00] VITALS: BP 110/65; PULSE 74; RESP 20; TEMP 95.3; O2SAT 97
[2017-07-11] MEDS: MORPHINE SULFATE 15 MG TAB PO PRN (13:21)
[2017-07-11] MEDS: ONDANSETRON HCL 4 MG/2 ML VIAL IV PRN (13:21)
[2017-07-12] MEDS ORDERED: LACTOBACILLUS ACIDOPHILUS TAB PO SCH (09:00)
== END 2017-07-11 15:24 | DRG 4 ==
LOC: NEPC 13:09 → NEDA 16:19 → HIMW 18:20 → N04A 03-12 15:18 → N04B 03-12 15:45 → HIMN 03-20 06:45 → N04A 05-14 01:14
PROVIDERS: ADMIT Internal Medicine Critical Care Medicine; ATTEND Internal Medicine
PROC: 03HY32Z Insertion of Monitoring Device into Upper Artery, Percutaneous Approach (ICD-10-PCS; 2017-03-02)
PROC: 02HV33Z Insertion of Infusion Device into Superior Vena Cava, Percutaneous Approach (ICD-10-PCS; 2017-03-02)
PROC: 02HV33Z Insertion of Infusion Device into Superior Vena Cava, Percutaneous Approach (ICD-10-PCS; 2017-03-25)
PROC: 0BH17EZ Insertion of Endotracheal Airway into Trachea, Via Natural or Artificial Opening (ICD-10-PCS; 2017-03-25)
PROC: 5A1955Z Respiratory Ventilation, Greater than 96 Consecutive Hours (ICD-10-PCS; 2017-03-25)
PROC: 30233N1 Transfusion of Nonautologous Red Blood Cells into Peripheral Vein, Percutaneous Approach (ICD-10-PCS; 2017-03-26)
PROC: 0DH63UZ Insertion of Feeding Device into Stomach, Percutaneous Approach (ICD-10-PCS; 2017-04-15)
PROC: 0DH63UZ Insertion of Feeding Device into Stomach, Percutaneous Approach (ICD-10-PCS; 2017-04-15)
PROC: 0B113F4 Bypass Trachea to Cutaneous with Tracheostomy Device, Percutaneous Approach (ICD-10-PCS; principal; 2017-04-16)
PROC: 5A1955Z Respiratory Ventilation, Greater than 96 Consecutive Hours (ICD-10-PCS; 2017-04-16)
PROC: 0DH63UZ Insertion of Feeding Device into Stomach, Percutaneous Approach (ICD-10-PCS; 2017-06-06)
DX: E87.1 Hypo-osmolality and hyponatremia (principal); I63.9 Cerebral infarction, unspecified; R65.21 Severe sepsis with septic shock; J69.0 Pneumonitis due to inhalation of food and vomit; G92 Toxic encephalopathy; A41.9 Sepsis, unspecified organism; E43 Unspecified severe protein-calorie malnutrition; J15.6 Pneumonia due to other Gram-negative bacteria; J96.01 Acute respiratory failure with hypoxia; J96.02 Acute respiratory failure with hypercapnia; N17.9 Acute kidney failure, unspecified; I50.22 Chronic systolic (congestive) heart failure; M62.82 Rhabdomyolysis; G37.2 Central pontine myelinolysis; N39.0 Urinary tract infection, site not specified; K94.22 Gastrostomy infection; F10.239 Alcohol dependence with withdrawal, unspecified; G40.89 Other seizures; B37.49 Other urogenital candidiasis; J95.851 Ventilator associated pneumonia; D68.4 Acquired coagulation factor deficiency; B37.0 Candidal stomatitis; A04.7 Enterocolitis due to Clostridium difficile; I85.00 Esophageal varices without bleeding; J98.11 Atelectasis; J44.0 Chronic obstructive pulmonary disease with (acute) lower respiratory infection; L89.154 Pressure ulcer of sacral region, stage 4; L89.893 Pressure ulcer of other site, stage 3; D69.59 Other secondary thrombocytopenia; K70.30 Alcoholic cirrhosis of liver without ascites; E83.42 Hypomagnesemia; E83.39 Other disorders of phosphorus metabolism; E87.5 Hyperkalemia; E86.0 Dehydration; R73.9 Hyperglycemia, unspecified; E87.0 Hyperosmolality and hypernatremia; B96.20 Unspecified Escherichia coli [E. coli] as the cause of diseases classified elsewhere; B96.1 Klebsiella pneumoniae [K. pneumoniae] as the cause of diseases classified elsewhere; B95.2 Enterococcus as the cause of diseases classified elsewhere; K44.9 Diaphragmatic hernia without obstruction or gangrene; K57.30 Diverticulosis of large intestine without perforation or abscess without bleeding; D53.9 Nutritional anemia, unspecified; E88.09 Other disorders of plasma-protein metabolism, not elsewhere classified; B96.5 Pseudomonas (aeruginosa) (mallei) (pseudomallei) as the cause of diseases classified elsewhere; K72.90 Hepatic failure, unspecified without coma; Z68.27 Body mass index [BMI] 27.0-27.9, adult; R60.0 Localized edema; F32.9 Major depressive disorder, single episode, unspecified; G47.00 Insomnia, unspecified; R33.9 Retention of urine, unspecified; R53.1 Weakness; E87.6 Hypokalemia; K59.00 Constipation, unspecified; D63.8 Anemia in other chronic diseases classified elsewhere; R13.10 Dysphagia, unspecified; E86.1 Hypovolemia; J98.01 Acute bronchospasm; S00.81XA Abrasion of other part of head, initial encounter; W19.XXXA Unspecified fall, initial encounter
CPT/HCPCS: 31500; 31600; 36430; 36556; 36600; 70450; 70486; 70544; 70551; 70553; 71010; 71250; 71275; 72125; 73030; 74000; 74176; 74177; 76700; 76705; 76937; 80048; 80053; 80074; 80076; 80185; 80202; 80307; 81001; 82140; 82248; 82533; 82550; 82552; 82570; 82607; 82746; 82805; 82948; 83605; 83690; 83735; 83880; 83930; 83935; 84100; 84132; 84145; 84155; 84295; 84300; 84443; 84484; 84540; 85007; 85014; 85018; 85025; 85027; 85060; 85384; 85610; 85730; 86077; 86850; 86870; 86900; 86901; 86920; 86921; 86922; 87040; 87070; 87077; 87086; 87186; 87205; 87493; 87506; 87641; 93005; 93306; 93970; 94002; 94003; 94150; 94640; 94664; 94667; 94668; 95819; 96360; 96361; A7520; A7521; A9579; C9113; J0131; J0153; J0295; J0690; J0692; J0696; J1200; J1644; J1720; J1940; J1953; J1956; J2020; J2060; J2185; J2212; J2250; J2260; J2270; J2370; J2405; J2543; J2597; J2765; J2930; J3010; J3230; J3370; J3411; J3475; J3480; J7030; J7040; J7042; J7050; J7060; J7120; J7512; J7608; J7613; J7644; J7685; P9016; P9045; P9047; P9612; Q0167; Q2009; Q9963; Q9967; S0142

== ENCOUNTER 2017-10-03 11:06 | Inpatient (IN) | payer MEDICAID ==
[~2017-10-03] VITALS: Ht 175.3 cm; Wt 68.0 kg
[~2017-10-03 11:06] MED LIST changes: +ACET325T15 PO; +ALBU0.08 INH; +DRON2.5 PO; +FURO20TA PO; +HEPA10003 SQ; -LACT20SO4 PO; +LACTTAB8 PO; +LEVE500 PO; +MSIR15 PO; -NORV5TAB PO; +PANT20 PO; +POTA20TA5 PO; +SENN1TAB PO; -SODI1 PO; +THIA100 PO; -THIA100T PO; +TRAZ50TA12 PO
[2017-10-03] MEDS ORDERED: IOHEXOL 350 MG/ML 10 ML VIAL (for RAD DIAG) IVCONTRAST ONE (11:07)
[2017-10-03 11:15] VITALS: BP 117/77; PULSE 96; RESP 20; TEMP 98.8; O2SAT 99
[2017-10-03] MEDS ORDERED: AMPICILLIN-SULBACTAM INJ 3 GM VIAL IM ONE (11:30)
[2017-10-03] MEDS ORDERED: DEXAMETHASONE SOD PHOS 20 MG/5 ML VIAL IV PUSH ONE (11:30)
--- NOTE | 2017-10-03 11:30 | PD ---
HPI Chief Complaint: Lump, Cyst, Hernia Time Seen by Provider: 11:19 Travel History International Travel<30 days: No Contact w/Intl Traveler<30days: No Traveled to known affect area: No History of Present Illness HPI 62-year-old male presents the emergency department from his nursing facility via EMS with large "lump" to the right side of his neck with muffled voice. Patient states it started yesterday. Patient states it is much bigger this morning. Patient is status post stroke 3, and on anticoagulating medicines. He denies fever, chills, or any pain. He is allergic to fish, chicken, and peanuts. He has a history of MRSA. PFSH Past Medical History Cerebrovascular Accident: Yes Diminished Hearing: No Insomnia: Yes Respiratory: Yes (pna ) Seizures: Yes Past Surgical History Abdominal Surgery: Yes (hernia ) Neurologic Surgery: Yes (pt states brain sx) Social History Alcohol Use: No Tobacco Use: No Substance Use: No Allergies-Medications (Allergen,Severity, Reaction): Coded Allergies: peanut (Unverified Allergy, Severe, 07/16/17) Fish Containing Products (Unverified Allergy, Mild, Rash, 07/16/17) chicken derived (Unverified Allergy, Mild, Rash, 07/16/17) *MDRO Multi-Drug Resistant Organism (Verified Adverse Reaction, Unknown, ) MRSA PCR screen POSITIVE - 03/02/17 MDR Acinetobacter (sputum) - 03/25/17 & 04/29/17, (urine) - 06/15/17 Reported Meds & Prescriptions Reported Meds & Active Scripts Active Morphine IR (Morphine Sulfate) 15 Mg Tab 15 Mg PO Q6HR PRN Marinol (Dronabinol) 2.5 Mg Cap 2.5 Mg PO BID@,16 Senna Plus 8.6-50 mg (Sennosides-Docusate Sodium) 1 Tab Tab 1 Tab PO DAILY 30 Days Eq Acetaminophen (Acetaminophen) 325 Mg Tab 500 Mg PO Q6H PRN 30 Days Lactobacillus Acidophilus 1 Tab Tab 1 Tab PO DAILY Trazodone (Trazodone HCl) 50 Mg Tab 75 Mg PO HS 30 Days Gnp Vitamin B-1 (Thiamine HCl) 100 Mg Tab 100 Mg PO DAILY 30 Days Potassium Chloride Microencaps 20 Meq Tab 20 Meq PO DAILY 30 Days Protonix (Pantoprazole Sodium) 20 Mg Tab 20 Mg PO DAILY 30 Days Albuterol Neb (Albuterol Sulfate) 2.5 Mg/3 Ml Neb 2.5 Mg INH Q2HR NEB PRN 30 Days Furosemide 20 Mg Tab 20 Mg PO DAILY 30 Days Heparin Sodium (Heparin Sodium (Porcine)) 10,000 Unit/Ml Inj 5,000 Units SQ Q12HR 14 Days Keppra (Levetiracetam) 500 Mg Tab 1,000 Mg PO Q12HR 30 Days Review of Systems Except as stated in HPI: all other systems reviewed are Neg General / Constitutional: No: Fever Eyes: No: Visual changes HENT: Positive: Neck Stiffness, Masses (see history present illness), No: Headaches, Vertigo, Lightheadedness, Sore Throat, Rhinitis, Rhinorrhea, Congestion, Nosebleed, Gingival Bleeding, Dental Difficulties, Ear Discharge, Earache Cardiovascular: No: Chest Pain or Discomfort Respiratory: No: Cough, Shortness of Breath, Wheezing Gastrointestinal: No: Nausea, Vomiting, Diarrhea, Abdominal Pain Genitourinary: No: Dysuria Musculoskeletal: No: Pain Skin: No Rash Neurologic: No: Weakness Psychiatric: No: Depression Endocrine: No: Polydipsia Hematologic/Lymphatic: No: Easy Bruising Physical Exam Narrative GENERAL: Patient appears in no acute distress. He has obvious muffled voice. He is handling his own secretions. SKIN: Warm and dry. Normal color. Normal turgor. HEAD: Atraumatic. Normocephalic. EYES: Pupils equal and round. No scleral icterus. No injection or drainage. ENT: No nasal bleeding or discharge. Mucous membranes pink and moist. Patient has very large right-sided apparent tonsillar abscess crossing the midline and encroaching on the airway. There is white exudate noted but no obvious drainage currently. The left side is normal. Voice is muffled NECK: Trachea midline. Patient has large indurated firm mass to the right anterior neck extending below the jawline consistent with possible large abscess versus lymphadenitis versus mass. CARDIOVASCULAR: Regular rate and rhythm. No murmurs gallops or rubs. RESPIRATORY: No accessory muscle use. Clear to auscultation. Breath sounds equal bilaterally. GASTROINTESTINAL: Abdomen soft, non-tender, nondistended. Hepatic and splenic margins not palpable. MUSCULOSKELETAL: Extremities without clubbing, cyanosis, or edema. No obvious deformities. NEUROLOGICAL: Awake and alert. No obvious cranial nerve deficits. Motor grossly within normal limits. Five out of 5 muscle strength in the arms and legs. Muffled speech. Data Data Last Documented VS Vital Signs Date Time Temp Pulse Resp B/P (MAP) Pulse Ox O2 Delivery O2 Flow Rate FiO2 10/03/17 11:43 98 Room Air 10/03/17 11:15 98.8 96 20 117/77 (90) Orders Orders Electrocardiogram (10/03/17 11:22) Complete Blood Count With Diff (10/03/17 11:22) Comprehensive Metabolic Panel (10/03/17 11:22) Prothrombin Time / Inr (Pt) (10/03/17 11:22) Act Partial Throm Time (Ptt) (10/03/17 11:22) Lactic Acid Sepsis Protocol (10/03/17 11:22) Urinalysis - C+S If Indicated (10/03/17 11:22) Blood Culture (10/03/17 11:22) Chest, Single Ap (10/03/17 11:22) Blood Glucose (10/03/17 11:22) Ecg Monitoring (10/03/17 11:22) Iv Access Insert/Monitor (10/03/17 11:22) Oximetry (10/03/17 11:22) Oxygen Administration (10/03/17 11:22) Ampicillin-Sulbactam Inj (Unasyn Inj) (10/03/17 11:30) Dexamethasone Inj (Decadron Inj) (10/03/17 11:30) Ct Soft Tiss Neck W Iv Cont (10/03/17 11:31) Group A Rapid Strep Screen (10/03/17 11:31) Iohexol 350 Inj (Omnipaque 350 Inj) (10/03/17 11:07) Strep Culture (Group A) (10/03/17 11:35) Urine Culture (10/03/17 11:45) Admit Order (Ed Use Only) (10/03/17 13:39) Consult Ent (10/03/17 ) Labs Laboratory Tests Test 10/03/17 11:35 10/03/17 11:45 White Blood Count 12.5 TH/MM3 Red Blood Count 3.92 MIL/MM3 Hemoglobin 11.9 GM/DL Hematocrit 34.4 % Mean Corpuscular Volume 87.8 FL Mean Corpuscular Hemoglobin 30.2 PG Mean Corpuscular Hemoglobin Concent 34.5 % Red Cell Distribution Width 13.7 % Platelet Count 126 TH/MM3 Mean Platelet Volume 7.3 FL Neutrophils (%) (Auto) 71.3 % Lymphocytes (%) (Auto) 16.4 % Monocytes (%) (Auto) 11.6 % Eosinophils (%) (Auto) 0.3 % Basophils (%) (Auto) 0.4 % Neutrophils # (Auto) 8.9 TH/MM3 Lymphocytes # (Auto) 2.0 TH/MM3 Monocytes # (Auto) 1.4 TH/MM3 Eosinophils # (Auto) 0.0 TH/MM3 Basophils # (Auto) 0.1 TH/MM3 CBC Comment DIFF FINAL Differential Comment Prothrombin Time 13.2 SEC Prothromb Time International Ratio 1.2 RATIO Activated Partial Thromboplast Time 31.5 SEC Blood Urea Nitrogen 8 MG/DL Creatinine 0.64 MG/DL Random Glucose 94 MG/DL Total Protein 7.8 GM/DL Albumin 3.3 GM/DL Calcium Level 9.2 MG/DL Alkaline Phosphatase 177 U/L Aspartate Amino Transf (AST/SGOT) 28 U/L Alanine Aminotransferase (ALT/SGPT) 21 U/L Total Bilirubin 2.3 MG/DL Sodium Level 131 MEQ/L Potassium Level 4.0 MEQ/L Chloride Level 98 MEQ/L Carbon Dioxide Level 25.0 MEQ/L Anion Gap 8 MEQ/L Estimat Glomerular Filtration Rate 128 ML/MIN Lactic Acid Level 1.3 mmol/L Urine Color YELLOW Urine Turbidity CLEAR Urine pH 6.0 Urine Specific Fletcher 1.020 Urine Protein TRACE mg/dL Urine Glucose (UA) NEG mg/dL Urine Ketones NEG mg/dL Urine Occult Blood NEG Urine Nitrite NEG Urine Bilirubin NEG Urine Urobilinogen 2.0 MG/DL Urine Leukocyte Esterase MOD Urine RBC 2 /hpf Urine WBC 26 /hpf Urine Squamous Epithelial Cells <1 /hpf Urine Calcium Oxalate Crystals MOD /hpf Urine Bacteria RARE /hpf Urine Mucus FEW /lpf Microscopic Urinalysis Comment CATH-CULTURE IND MDM Medical Decision Making Medical Screen Exam Complete: Yes Emergency Medical Condition: Yes Medical Record Reviewed: Yes Differential Diagnosis Peritonsillar abscess. Partial airway compromise. Possible malignant mass. Narrative Course Patient is currently medically stable at time of exam. Patient is discussed with and seen by Dr. Dunn as well. Stat CT of the soft tissues neck with contrast is ordered. Labs ordered including CBC, CMP, lactic acid, blood cultures 2. EKG and chest x-ray is ordered as well. Dr. Dunn requests that I call the ear nose and throat doctor to discuss the patient, as she feels IR may be able to drain the abscess as it is very accessible. CBC shows leukocytosis of 12.5, hemoglobin of 11.9, hematocrit 34.4. Platelets are slightly low at 126. Chemistry shows sodium 131, lactic acid 1.3, total bilirubin of 2.3, alkaline phosphatase 177, and albumin is 3.3. BUN and creatinine are normal at 8 and 0.64. Coagulation studies show PT of 13.2, INR 1.2. PTT of 31.5. Urinalysis shows moderate leukocyte esterase, with 26 white blood cells per high -power field, moderate calcium oxalate crystals. Rare bacteria. CT of the neck shows: FINDINGS: Large lobulated right jugulodigastric mass present that measures approximately 2.8 x 3.4 x 5 cm. The mass is deep to sternocleidomastoid, begins at C2/C3 and lower margin is near C5/C6. Central cystic spaces are present. There is induration of the surrounding soft tissues. Overlying skin is thickened. There are a few surrounding subcentimeter lymph nodes that are similar in size to left jugulodigastric lymph nodes. Suspected right tongue base/tonsillar mass estimated at approximately 3.1 x 3.6 cm. 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 Call was placed to Dr. Willingham. He recommended admitting the patient and he will consult. Dr. Dunn recommended the patient go to the ICU due to his possible airway compromise. Resident was called for admission. Resident staffing agreed to admit the patient. Patient was admitted under Dr. Padron. After the resident saw the patient, he felt the patient's comorbidities warranted gas fitter helper care. The gas fitter helper will be consult to for admission. Consult to Dr. Willingham was placed. Diagnosis Primary Impression: Tonsillar abscess Admitting Information Admitting Physician Requests: Admit Condition: Stable Reji Herrera Oct 03, 2017 11:30
[2017-10-03] MEDS ORDERED: SUCCINYLCHOLINE CHLORIDE 100 MG/5 ML SYRINGE OTHER ONE (12:00)
[2017-10-03] MEDS ORDERED: LIDOCAINE HCL 1% PF 5 ML AMPULE OTHER ONE (12:00)
[2017-10-03] MEDS ORDERED: PROPOFOL 200 MG/20 ML AMP IV ONE (12:00)
[2017-10-03] MEDS ORDERED: MIDAZOLAM HCL 2 MG/2 ML VIAL IV ONE (12:00)
[2017-10-03 12:16] LABS: AUTOMATED NEUTROPHIL # 8.9 TH/MM3 (1.8-7.7); BASOPHIL # 0.1 TH/MM3 (0-0.2); BASOPHIL % 0.4 % (0.0-2.0); EOSINOPHIL % 0.3 % (0.0-4.0); HEMATOCRIT 34.4 % (39.0-51.0); HEMO FLAGS DIFF FINAL; LYMPH % 16.4 % (9.0-44.0); MEAN CELL VOLUME 87.8 FL (80.0-100.0); MEAN CORPUSCULAR HEMOGLOBIN 30.2 PG (27.0-34.0); MEAN CORPUSCULAR HGB CONC 34.5 % (32.0-36.0); MONO % 11.6 % (0.0-8.0); NEUT % 71.3 % (16.0-70.0); PLATELET COUNT 126 TH/MM3 (150-450); RED BLOOD COUNT 3.92 MIL/MM3 (4.50-5.90); RED CELL DISTRIBUTION WIDTH 13.7 % (11.6-17.2); WHITE BLOOD COUNT 12.5 TH/MM3 (4.0-11.0)
[2017-10-03 12:25] LABS: APTT (PATIENT) 31.5 SEC (24.3-30.1); INTERNATIONAL NORMALIZED RATIO 1.2 RATIO; PROTHROMBIN TIME - PATIENT 13.2 SEC (9.8-11.6)
--- NOTE | 2017-10-03 12:35 | RADRPT ---
EXAM DATE/TIME: 10/03/2017 11:41 [facility] COMPARISON: CHEST SINGLE AP, July 01, 2017, 16:50. INDICATIONS : Short of breath, large swollen area on right neck MEDICAL HISTORY : Cirrhosis. Diverticulosis. Hiatal hernia. seizures SURGICAL HISTORY : None. ENCOUNTER: Initial ACUITY: 2 days PAIN SCORE: 1/10 LOCATION: Bilateral chest FINDINGS: A single view of the chest demonstrates the lungs to be symmetrically aerated without evidence of mas s, infiltrate or effusion. The cardiomediastinal contours are unremarkable. Osseous structures are intact. CONCLUSION: No evidence of acute cardiopulmonary disease. Casper Clifton MD on October 03, 2017 at 12:34 Board Certified Radiologist. This report was verified electronically.
[2017-10-03 12:38] LABS: ALT (GPT) 21 U/L (12-78); ANION GAP 8 MEQ/L (5-15); AST (GOT) 28 U/L (15-37); BLOOD UREA NITROGEN 8 MG/DL (7-18); CHLORIDE 98 MEQ/L (98-107); GLOMERULAR FILTRATION RATE 128 ML/MIN (>89); SODIUM (NA) 131 MEQ/L (136-145)
[2017-10-03 12:40] LABS: ALKALINE PHOSPHATASE 177 U/L (45-117); TOTAL BILIRUBIN ADULT 2.3 MG/DL (0.2-1.0)
[2017-10-03 12:41] LABS: BACTERIA, URINE RARE /hpf; BLOOD, URINE NEG (NEG); CALCIUM OXALATE CRYSTALS,URINE MOD /hpf; COMMENT (UR) CATH-CULTURE IND; CULTURE IF INDICATED CATH CULTURE IND; GLUCOSE,URINE NEG (NEG); KETONE, URINE NEG (NEG); MUCUS URINE FEW /lpf (OCC); NITRITE,URINE NEG (NEG); SQUAMOUS EPITHELIAL CELL URINE <1 /hpf (0-5); URINE COLOR YELLOW (YELLW/STRAW)
--- NOTE | 2017-10-03 12:46 | RADRPT ---
EXAM DATE/TIME: 10/03/2017 12:03 [place] COMPARISON: No previous studies available for comparison. INDICATIONS : Lump on right lateral side of neck. IV CONTRAST: 76 cc Omnipaque 350 (iohexol) IV RADIATION DOSE: 17.17 CTDIvol (mGy) MEDICAL HISTORY : Seizures. Cerebrovascular disease. SURGICAL HISTORY : Craniotomy. ENCOUNTER: Initial ACUITY: 1 day PAIN SCALE: 5/10 LOCATION: Right neck TECHNIQUE: Volumetric scanning of the neck was performed. Using automated exposure control and adjustment of th e mA and/or kV according to patient size, radiation dose was kept as low as reasonably achievable to obtain optimal diagnostic quality images. DICOM format image data is available electronically for r eview and comparison. FINDINGS: Large lobulated right jugulodigastric mass present that measures approximately 2.8 x 3.4 x 5 cm. The mass is deep to sternocleidomastoid, begins at C2/C3 and lower margin is near C5/C6. Central cystic s paces are present. There is induration of the surrounding soft tissues. Overlying skin is thickened. There are a few surrounding subcentimeter lymph nodes that are similar in size to left jugulodigastri c lymph nodes. Suspected right tongue base/tonsillar mass estimated at approximately 3.1 x 3.6 cm. CONCLUSION: Large right jugulodigastric mass suggestive of necrotic lymphadenopathy and likely representing metas tatic disease from a right posterior pharyngeal mass. Casper Clifton MD on October 03, 2017 at 12:40 Board Certified Radiologist. This report was verified electronically.
[2017-10-03] MEDS ORDERED: CHOL4POW2 PO (14:09)
[2017-10-03] MEDS ORDERED: DIFFCHW PO (14:09)
[2017-10-03] MEDS ORDERED: PEPT262S PO (14:09)
[2017-10-03] MEDS ORDERED: ASPI81TA16 PO (14:09)
[2017-10-03] MEDS ORDERED: REME15TA PO (14:09)
[2017-10-03] MEDS ORDERED: LACT10SO PO (14:09)
[2017-10-03] MEDS ORDERED: THERTAB17 PO (14:09)
--- NOTE | 2017-10-03 14:13 | PD ---
Physical Exam Date Seen by Provider: Oct 03, 2017 Time Seen by Provider: 14:10 Narrative 62-year-old male was brought to the emergency room by EMS with a right lateral neck mass. Patient was seen by my PA and I'm supervising him. Patient is really unclear with history but if I understand him right he says that this appeared yesterday. The mass is large and patient has a hot potato voice. Patient is afebrile. Does not have significant white blood cell count. Lactic acid is within normal limit. Neck CT is suggestive of possible neoplastic mass. And he spoke with the ENT surgeon who will consult on the patient. Patient has been maintaining his airway but because of the encroachment into the airway I'm concerned about decompensation and in my opinion patient should be admitted in the ICU until a definitive management for the mass has been done by ENT. Awaiting for the security operations center analyst to call back to for admission. Patient was given Decadron and IV antibiotic. Data Data Last Documented VS Vital Signs Date Time Temp Pulse Resp B/P (MAP) Pulse Ox O2 Delivery O2 Flow Rate FiO2 10/03/17 11:43 98 Room Air 10/03/17 11:15 98.8 96 20 117/77 (90) Orders Orders Electrocardiogram (10/03/17 11:22) Complete Blood Count With Diff (10/03/17 11:22) Comprehensive Metabolic Panel (10/03/17 11:22) Prothrombin Time / Inr (Pt) (10/03/17 11:22) Act Partial Throm Time (Ptt) (10/03/17 11:22) Lactic Acid Sepsis Protocol (10/03/17 11:22) Urinalysis - C+S If Indicated (10/03/17 11:22) Blood Culture (10/03/17 11:22) Chest, Single Ap (10/03/17 11:22) Blood Glucose (10/03/17 11:22) Ecg Monitoring (10/03/17 11:22) Iv Access Insert/Monitor (10/03/17 11:22) Oximetry (10/03/17 11:22) Oxygen Administration (10/03/17 11:22) Ampicillin-Sulbactam Inj (Unasyn Inj) (10/03/17 11:30) Dexamethasone Inj (Decadron Inj) (10/03/17 11:30) Ct Soft Tiss Neck W Iv Cont (10/03/17 11:31) Group A Rapid Strep Screen (10/03/17 11:31) Iohexol 350 Inj (Omnipaque 350 Inj) (10/03/17 11:07) Strep Culture (Group A) (10/03/17 11:35) Urine Culture (10/03/17 11:45) Admit Order (Ed Use Only) (10/03/17 13:39) Consult Ent (10/03/17 ) Labs Laboratory Tests Test 10/03/17 11:35 10/03/17 11:45 White Blood Count 12.5 TH/MM3 Red Blood Count 3.92 MIL/MM3 Hemoglobin 11.9 GM/DL Hematocrit 34.4 % Mean Corpuscular Volume 87.8 FL Mean Corpuscular Hemoglobin 30.2 PG Mean Corpuscular Hemoglobin Concent 34.5 % Red Cell Distribution Width 13.7 % Platelet Count 126 TH/MM3 Mean Platelet Volume 7.3 FL Neutrophils (%) (Auto) 71.3 % Lymphocytes (%) (Auto) 16.4 % Monocytes (%) (Auto) 11.6 % Eosinophils (%) (Auto) 0.3 % Basophils (%) (Auto) 0.4 % Neutrophils # (Auto) 8.9 TH/MM3 Lymphocytes # (Auto) 2.0 TH/MM3 Monocytes # (Auto) 1.4 TH/MM3 Eosinophils # (Auto) 0.0 TH/MM3 Basophils # (Auto) 0.1 TH/MM3 CBC Comment DIFF FINAL Differential Comment Prothrombin Time 13.2 SEC Prothromb Time International Ratio 1.2 RATIO Activated Partial Thromboplast Time 31.5 SEC Blood Urea Nitrogen 8 MG/DL Creatinine 0.64 MG/DL Random Glucose 94 MG/DL Total Protein 7.8 GM/DL Albumin 3.3 GM/DL Calcium Level 9.2 MG/DL Alkaline Phosphatase 177 U/L Aspartate Amino Transf (AST/SGOT) 28 U/L Alanine Aminotransferase (ALT/SGPT) 21 U/L Total Bilirubin 2.3 MG/DL Sodium Level 131 MEQ/L Potassium Level 4.0 MEQ/L Chloride Level 98 MEQ/L Carbon Dioxide Level 25.0 MEQ/L Anion Gap 8 MEQ/L Estimat Glomerular Filtration Rate 128 ML/MIN Lactic Acid Level 1.3 mmol/L Urine Color YELLOW Urine Turbidity CLEAR Urine pH 6.0 Urine Specific [place] 1.020 Urine Protein TRACE mg/dL Urine Glucose (UA) NEG mg/dL Urine Ketones NEG mg/dL Urine Occult Blood NEG Urine Nitrite NEG Urine Bilirubin NEG Urine Urobilinogen 2.0 MG/DL Urine Leukocyte Esterase MOD Urine RBC 2 /hpf Urine WBC 26 /hpf Urine Squamous Epithelial Cells <1 /hpf Urine Calcium Oxalate Crystals MOD /hpf Urine Bacteria RARE /hpf Urine Mucus FEW /lpf Microscopic Urinalysis Comment CATH-CULTURE IND MDM Supervised Visit with [facility]: No Critical Care Narrative Aggregate critical care time was 30 minutes. Time to perform other separately billable procedures was not included in the critical care time. My time did not include minutes spent treating any other patients simultaneously or on activities that did not directly contribute to the patient's treatment. The services I provided to this patient were to treat and/or prevent clinically significant deterioration that could result in: Large neck mass, compromised upper airway I provided critical care services requiring my management, as noted below: Chart data review, documentation time, medication orders and management, vital sign assessments/reviewing monitor data, ordering and reviewing lab tests, ordering and interpreting/reviewing x-rays and diagnostic studies, care of the patient and discussion of the patient with the admitting physicians. Diagnosis Primary Impression: Tonsillar abscess Condition: Stable Franklin Dunn MD Oct 03, 2017 14:13
[2017-10-03 14:46] VITALS: BP 115/59; PULSE 93; RESP 18; O2SAT 97
[2017-10-03] MEDS ORDERED: GELFOAM SIZE 100 ONE (18:10)
[2017-10-03] MEDS ORDERED: LIDOCAINE 1%/EPINEPHrine 1:100,000 SOLN 20 ML VIAL ONE (18:11)
--- NOTE | 2017-10-03 18:12 | HHI.HP ---
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 he is a very poor historian and difficult to obtain a complete past medical history. He states this swelling is only 1.5 days old, but per SNF, this has been enlarging for weeks. the patient denies shortness of breath. can manage secretions. can lie flat. not short of breath. no fevers, chills. no other associated symptoms. no swelling. ENT evaluated the patient and wants to admit patient for elective tracheostomy, biopsy for probable head and neck cancer with necrotic lymph nodes. Review of Systems ROS Limitations: Speech Impaired, Poor Historian Constitutional: DENIES: Fever, Chills, Night Sweats Respiratory: DENIES: Cough, Wheezing, Hemoptysis, Sputum production, Shortness of breath Cardiovascular: DENIES: Chest pain, Dyspnea on Exertion Hematologic/lymphatic: COMPLAINS OF: Lymphadenopathy, DENIES: Bruising Neurologic: DENIES: Headache, Localized weakness, Paresthesias Past Family Social History Allergies: Coded Allergies: peanut (Unverified Allergy, Severe, 07/16/17) Fish Containing Products (Unverified Allergy, Mild, Rash, 07/16/17) chicken derived (Unverified Allergy, Mild, Rash, 07/16/17) *MDRO Multi-Drug Resistant Organism (Verified Adverse Reaction, Unknown, ) MRSA PCR screen POSITIVE - 03/02/17 MDR Acinetobacter (sputum) - 03/25/17 & 04/29/17, (urine) - 06/15/17 Past Medical History Please see my own prior admission history and physical from 03/02/2017 for additional information. the patient today is too poor a historian to provide an accurate history. Past Surgical History Please see my own prior admission history and physical from 03/02/2017 for additional information. the patient today is too poor a historian to provide an accurate history. Reported Medications Eq Acetaminophen (Acetaminophen) 325 Mg Tab 500 Mg PO Q6H PRN 30 Days Trazodone (Trazodone HCl) 50 Mg Tab 75 Mg PO HS 30 Days Gnp Vitamin B-1 (Thiamine HCl) 100 Mg Tab 100 Mg PO DAILY 30 Days Keppra (Levetiracetam) 500 Mg Tab 1,000 Mg PO Q12HR 30 Days Remeron (Mirtazapine) 15 Mg Tab 15 Mg PO HS Pepto-Bismol Liq (Bismuth Subsalicylate) 262 Mg/15 Ml Susp 30 Ml PO Q4HR PRN Do not exceed 8 doses (240 mL or 16 tbsp) in 24 hours. Thera-M (Multiple Vitamins W/ Minerals) 1 Tab 1 Tab PO DAILY Lactulose Liq (Lactulose) 10 Gm/15 Ml Soln 45 Ml PO TID Diff-Stat (Probiotic Product) 471 Mg Cap 1 Cap PO BID Cholestyramine Light 4 Gm/Pkt Powd 4 Gm PO DAILY Mix 1 packet (4gm) in 8oz of liquid Aspirin Adult Low Strength (Aspirin) 81 Mg Tabdr 81 Mg PO DAILY Active Ordered Medications See MAR Family History Please see my own prior admission history and physical from 03/02/2017 for additional information. the patient today is too poor a historian to provide an accurate history. Social History Please see my own prior admission history and physical from 03/02/2017 for additional information. the patient today is too poor a historian to provide an accurate history. Physical Exam Vital Signs Vital Signs Date Time Temp Pulse Resp B/P (MAP) Pulse Ox O2 Delivery O2 Flow Rate FiO2 10/03/17 14:46 93 18 115/59 (77) 97 10/03/17 11:43 98 Room Air 10/03/17 11:43 Room Air 10/03/17 11:15 98.8 96 20 117/77 (90) 99 Physical Exam gen: middle-aged male, lying in bed, no distress. heent: perrl. mucous membranes moist. noted oropharyngeal mass in the hypoharynx , tongue unobstructed. managing secretions. swallowing easy. large anterior right lymph node which appears fixed and nonmobile. tender to palpation neck: trachea deviated to the left. no stridor. chest: unlabored. on room air. equal chest rise. lying flat on my exam. cv: normal rate, regular rhythm. sinus on tele. abd: soft, nontender, nondistended. no guarding. extr: distal pulses 2+. no edema. neuro: RASS 0. CAM -. follows commands. Laboratory Laboratory Tests Test 10/03/17 11:35 10/03/17 11:45 White Blood Count 12.5 Red Blood Count 3.92 Hemoglobin 11.9 Hematocrit 34.4 Mean Corpuscular Volume 87.8 Mean Corpuscular Hemoglobin 30.2 Mean Corpuscular Hemoglobin Concent 34.5 Red Cell Distribution Width 13.7 Platelet Count 126 Mean Platelet Volume 7.3 Neutrophils (%) (Auto) 71.3 Lymphocytes (%) (Auto) 16.4 Monocytes (%) (Auto) 11.6 Eosinophils (%) (Auto) 0.3 Basophils (%) (Auto) 0.4 Neutrophils # (Auto) 8.9 Lymphocytes # (Auto) 2.0 Monocytes # (Auto) 1.4 Eosinophils # (Auto) 0.0 Basophils # (Auto) 0.1 CBC Comment DIFF FINAL Differential Comment Prothrombin Time 13.2 Prothromb Time International Ratio 1.2 Activated Partial Thromboplast Time 31.5 Blood Urea Nitrogen 8 Creatinine 0.64 Random Glucose 94 Total Protein 7.8 Albumin 3.3 Calcium Level 9.2 Alkaline Phosphatase 177 Aspartate Amino Transf (AST/SGOT) 28 Alanine Aminotransferase (ALT/SGPT) 21 Total Bilirubin 2.3 Sodium Level 131 Potassium Level 4.0 Chloride Level 98 Carbon Dioxide Level 25.0 Anion Gap 8 Estimat Glomerular Filtration Rate 128 Lactic Acid Level 1.3 Urine Color YELLOW Urine Turbidity CLEAR Urine pH 6.0 Urine Specific [place] 1.020 Urine Protein TRACE Urine Glucose (UA) NEG Urine Ketones NEG Urine Occult Blood NEG Urine Nitrite NEG Urine Bilirubin NEG Urine Urobilinogen 2.0 Urine Leukocyte Esterase MOD Urine RBC 2 Urine WBC 26 Urine Squamous Epithelial Cells <1 Urine Calcium Oxalate Crystals MOD Urine Bacteria RARE Urine Mucus FEW Microscopic Urinalysis Comment CATH-CULTURE IND Date/Time Source Procedure Growth Status 10/03/17 11:35 Blood Peripheral Aerobic Blood Culture Pending Received 10/03/17 11:35 Blood Peripheral Anaerobic Blood Culture Pending Received 10/03/17 11:35 Throat Group A Streptococcus Screen Pending Received 10/03/17 11:45 Urine Catheterized Urine Urine Culture Pending Received Result Diagram: 10/03/17 1135 10/03/17 1135 Imaging Last Impressions Neck CT 10/03/17 1131 Signed Impressions: Service Date/Time: October 12:03 - CONCLUSION: Large right jugulodigastric mass suggestive of necrotic lymphadenopathy and 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 Casper Clifton MD Chest X-Ray 10/03/17 1122 Signed Impressions: Service Date/Time: October 11:41 - CONCLUSION: No evidence of acute cardiopulmonary disease. Casper Clifton MD Caprini VTE Risk Assessment Caprini VTE Risk Assessment: Mod/High Risk (score >= 2) Caprini Risk Assessment Model Point Value = 1 Point Value = 2 Point Value = 3 Point Value = 5 Age 41-60 Minor surgery BMI > 25 kg/m2 Swollen legs Varicose veins or History of unexplained or recurrent spontaneous Oral contraceptives or hormone replacement Sepsis (< 1 month) Serious lung disease, including pneumonia (< 1 month) Abnormal pulmonary function Acute myocardial infarction Congestive heart failure (< 1 month) History of inflammatory bowel disease Medical patient at bed rest Age 61-74 Arthroscopic surgery Major open surgery (> 45 min) Laparoscopic surgery (> 45 min) Malignancy Confined to bed (> 72 hours) Immobilizing plaster cast Central venous access Age >= 75 History of VTE Family history of VTE Factor V Leiden Prothrombin [id number] Lupus anticoagulant Anticardiolipin antibodies Elevated serum homocysteine Heparin-induced thrombocytopenia Other congenital or acquired thrombophilia Stroke (< 1 month) Elective arthroplasty Hip, pelvis, or leg fracture Acute spinal cord injury (< 1 month) Prophylaxis Regimen Total Risk Factor Score Risk Level Prophylaxis Regimen 0-1 Low Early ambulation 2 Moderate Order ONE of the following: *Sequential Compression Device (SCD) *Heparin 5000 units SQ BID 3-4 Higher Order ONE of the following medications: *Heparin 5000 units SQ TID *Enoxaparin/Lovenox 40 mg SQ daily (WT < 150 kg, CrCl > 30 mL/min) *Enoxaparin/Lovenox 30 mg SQ daily (WT < 150 kg, CrCl > 10-29 mL/min) *Enoxaparin/Lovenox 30 mg SQ BID (WT < 150 kg, CrCl > 30 mL/min) AND/OR *Sequential Compression Device (SCD) 5 or more Highest Order ONE of the following medications: *Heparin 5000 units SQ TID (Preferred with Epidurals) *Enoxaparin/Lovenox 40 mg SQ daily (WT < 150 kg, CrCl > 30 mL/min) *Enoxaparin/Lovenox 30 mg SQ daily (WT < 150 kg, CrCl > 10-29 mL/min) *Enoxaparin/Lovenox 30 mg SQ BID (WT < 150 kg, CrCl > 30 mL/min) AND *Sequential Compression Device (SCD) Assessment and Plan Assessment and Plan Assessment: 62yM with new neck mass likely head and neck cancer, admitted for biopsy and elective trach and peg in lieu of further medical management for mass and anticipated airway compromise. Neck Mass Head and Neck Cancer - admit for airway watch and fresh trach watch - trach per Dr. Iraheta - GI consult for PEG - ENT consult - medical oncology consult - radiation oncology consult Admit to ICU. Tu Bryant MD Oct 03, 2017 18:12
[2017-10-03] MEDS ORDERED: MAGNESIUM SULFATE INJ 4 GM in SODIUM CHLORIDE 0.9% INJ 92 ML IV PRN (19:45)
[2017-10-03] MEDS ORDERED: POTASSIUM PHOSPHATE MONOBASIC 500 MG TAB PO/TUBE PRN (19:45)
[2017-10-03] MEDS ORDERED: CHLORHEXIDINE GLUCONATE 2 % 1 PACK (2 CLOTHS) TOP PRN (19:45)
[2017-10-03] MEDS ORDERED: POTASSIUM CHLOR 40 MEQ PREMIX 100 ML IV PRN ×2 (19:45)
[2017-10-03] MEDS ORDERED: RESP: ALBUTEROL 2.5 MG/IPRATROPIUM 0.5 MG NEB (PRN) INH (19:45)
[2017-10-03] MEDS ORDERED: POTASSIUM PHOSPHATE INJ 30 MMOL in SODIUM CHLOR 0.9% 250 ML INJ 250 ML IV PRN (19:45)
[2017-10-03] MEDS ORDERED: POTASSIUM PHOSPHATE MONOBASIC 500 MG TAB PO PRN (19:45)
[2017-10-03] MEDS ORDERED: MISCELLANEOUS NURSING INFORMATION XX SCH (19:45)
[2017-10-03] MEDS ORDERED: SODIUM PHOSPHATE INJ 30 MMOL in SODIUM CHLOR 0.9% 250 ML INJ 240 ML IV PRN (19:45)
[2017-10-03] MEDS ORDERED: MAGNESIUM SULFATE INJ 2 GM in SODIUM CHLORIDE 0.9% INJ 96 ML IV PRN (19:45)
[2017-10-03] MEDS ORDERED: MAGNESIUM OXIDE 400 MG TAB PO PRN (19:45)
[2017-10-03] MEDS ORDERED: DEXTROSE 50% IN WATER 50 ML VIAL(D50) IV PUSH PRN (19:45)
[2017-10-03] MEDS ORDERED: DO NOT ADM ANY ANTICOAGULANT DRUGS PRN (20:00)
[2017-10-03] MEDS: SODIUM CHLOR 0.9% 1000 ML INJ 1,000 ML IV SCH (20:00)
[2017-10-03] MEDS: FAMOTIDINE 20 MG/2 ML VIAL IV PUSH SCH (20:24)
[2017-10-03 21:30] VITALS: PULSE 70
[2017-10-03] MEDS: CHLORHEXIDINE 0.12% (ORAL KIT) 15 ML CUP MT SCH (21:38)
[2017-10-03] MEDS: RESP: ALBUTEROL 2.5 MG/IPRATROPIUM 0.5 MG NEB (SCH) INH (21:40)
[2017-10-03 21:43] VITALS: O2SAT 100
[2017-10-03 21:50] VITALS: BP 119/69; PULSE 64; RESP 18; TEMP 97.9; O2SAT 100
[2017-10-03 22:00] VITALS: PULSE 67
[2017-10-03] MEDS ORDERED: HEPARIN SODIUM - SQ 10,000 UNITS/ML VIAL SQ SCH (22:00)
[2017-10-03] MEDS: INSULIN NovoLIN REGULAR SUPPLEMENTAL SCALE SQ SCH (23:44)
[2017-10-04] VITALS (14 sets, daily range): BP systolic 100–122; BP diastolic 58–68; PULSE 62–98; RESP 19–25; TEMP 97.7–98.5; O2SAT 95–100
[2017-10-04] MEDS: CHLORHEXIDINE GLUCONATE 2 % 1 PACK (2 CLOTHS) TOP SCH (03:33)
[2017-10-04] MEDS: RESP: ALBUTEROL 2.5 MG/IPRATROPIUM 0.5 MG NEB (SCH) INH ×4 (04:47→20:42)
[2017-10-04] MEDS: INSULIN NovoLIN REGULAR SUPPLEMENTAL SCALE SQ SCH ×3 (05:14→17:41)
[2017-10-04 05:16] LABS: HEMATOCRIT 31.1 % (39.0-51.0); MEAN CELL VOLUME 86.8 FL (80.0-100.0); MEAN CORPUSCULAR HGB CONC 34.6 % (32.0-36.0); PLATELET COUNT 118 TH/MM3 (150-450); RED BLOOD COUNT 3.58 MIL/MM3 (4.50-5.90); RED CELL DISTRIBUTION WIDTH 13.4 % (11.6-17.2); REVIEW FLAG FINAL; WHITE BLOOD COUNT 8.5 TH/MM3 (4.0-11.0)
[2017-10-04 05:39] LABS: BICARBONATE 24.3 MEQ/L (21.0-32.0); POTASSIUM 3.8 MEQ/L (3.5-5.1)
[2017-10-04] MEDS: SODIUM CHLOR 0.9% 1000 ML INJ 1,000 ML IV SCH (06:40)
[2017-10-04] MEDS: CHLORHEXIDINE 0.12% (ORAL KIT) 15 ML CUP MT SCH ×2 (08:00→20:10)
--- NOTE | 2017-10-04 09:07 | PD.CONS ---
HPI History of Present Illness This is a 62 year old male with a history of liver cirrhosis, CHF, HTN, who was brought from a [facility] facility for evaluation of right sided neck swelling. 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 The patient was evaluated by ENT who recommended the patient to have an elective tracheostomy, biopsy for probable head and neck cancer with necrotic lymph nodes. GI has been consulted for PEG tube placement. The patient had a tracheostomy placed last night. The patient reports that he has not had any issues with nausea, vomiting, dysphagia , abdominal pain, bowel changes, or GI bleeding. Of note, he has been seen by our service in the past and has had prior PEG tubes for dysphagia. (Maggie Mederos) PFSH Past Medical History Dysphagia Liver cirrhosis Hx ETOH use Splenomegaly Respiratory failure related to PNA PNA CHF Hypothyroidism HTN Past Surgical History PEG tube placement (Maggie Mederos) Coded Allergies: peanut (Unverified Allergy, Severe, 07/16/17) Fish Containing Products (Unverified Allergy, Mild, Rash, 07/16/17) chicken derived (Unverified Allergy, Mild, Rash, 07/16/17) *MDRO Multi-Drug Resistant Organism (Verified Adverse Reaction, Unknown, ) MRSA PCR screen POSITIVE - 03/02/17 MDR Acinetobacter (sputum) - 03/25/17 & 04/29/17, (urine) - 06/15/17 Medications Allergies Coded Allergies Type Severity Reaction Last Updated Verified peanut Allergy Severe 07/16/17 No Fish Containing Products Allergy Mild Rash 07/16/17 No chicken derived Allergy Mild Rash 07/16/17 No *MDRO Multi-Drug Resistant Organism Adverse Reaction Unknown 06/19/17 Yes Active Scripts Medications Dose Route/Sig Max Daily Dose Days Date Category Dose Instructions Remeron (Mirtazapine) 15 Mg Tab 15 Mg PO HS 10/03/17 Reported Pepto-Bismol Liq (Bismuth Subsalicylate) 262 Mg/15 Ml Susp 30 Ml PO Q4HR PRN 10/03/17 Reported Do not exceed 8 doses (240 mL or 16 tbsp) in 24 hours. Thera-M (Multiple Vitamins W/ Minerals) 1 Tab 1 Tab PO DAILY 10/03/17 Reported Lactulose Liq (Lactulose) 10 Gm/15 Ml Soln 45 Ml PO TID 10/03/17 Reported Diff-Stat (Probiotic Product) 471 Mg Cap 1 Cap PO BID 10/03/17 Reported Cholestyramine Light 4 Gm/Pkt Powd 4 Gm PO DAILY 10/03/17 Reported Mix 1 packet (4gm) in 8oz of liquid Aspirin Adult Low Strength (Aspirin) 81 Mg Tabdr 81 Mg PO DAILY 10/03/17 Reported Eq Acetaminophen (Acetaminophen) 325 Mg Tab 500 Mg PO Q6H PRN 30 07/11/17 Rx Trazodone (Trazodone HCl) 50 Mg Tab 75 Mg PO HS 30 07/11/17 Rx Gnp Vitamin B-1 (Thiamine HCl) 100 Mg Tab 100 Mg PO DAILY 30 07/11/17 Rx Keppra (Levetiracetam) 500 Mg Tab 1,000 Mg PO Q12HR 30 07/11/17 Rx Family History Father had lung cancer Social History Does not smoke. Occasional ETOH (Maggie Mederos) Review of Systems Constitutional: DENIES: Fatigue Gastrointestinal: DENIES: Abdominal pain, Black stools, Bloody stools, Constipation, Diarrhea, Nausea, Vomiting, Difficulty Swallowing, Anorexia, Swelling of Abdomen, Hematemesis Musculoskeletal: DENIES: Joint pain Hematologic/lymphatic: DENIES: Bruising Psychiatric: DENIES: Confusion (Maggie Mederos) GI Exam Vitals I&O Vital Signs Date Time Temp Pulse Resp B/P (MAP) Pulse Ox O2 Delivery O2 Flow Rate FiO2 10/04/17 08:00 98.1 77 25 113/62 (79) 96 10/04/17 06:00 65 10/04/17 04:48 100 Trach Collar 28 10/04/17 04:00 72 10/04/17 04:00 97.9 64 19 116/65 (82) 100 10/04/17 02:00 65 10/04/17 00:00 98.5 63 23 100/61 (74) 100 10/04/17 00:00 62 10/03/17 22:00 67 10/03/17 22:00 100 Trach Collar 28 10/03/17 21:50 97.9 64 18 119/69 (86) 100 10/03/17 21:43 100 Trach Collar 6.00 28 10/03/17 21:30 70 10/03/17 20:45 98.0 72 13 115/69 (84) 96 Trach Collar 28 10/03/17 20:30 72 13 113/70 (84) 97 Trach Collar 28 10/03/17 20:15 72 16 112/68 (83) 97 Trach Collar 28 10/03/17 20:00 82 21 132/74 (93) 99 Trach Collar 28 10/03/17 19:45 76 16 106/65 (79) 95 Trach Collar 28 10/03/17 19:30 84 27 133/70 (91) 98 Trach Collar 28 10/03/17 19:15 80 14 105/63 (77) 100 T-Piece 15 10/03/17 19:14 81 13 114/61 (78) 100 T-Piece 15 10/03/17 19:12 74 6 88/57 (67) 100 T-Piece 15 10/03/17 19:10 98.1 74 5 89/57 (68) 100 T-Piece 15 10/03/17 14:46 93 18 115/59 (77) 97 10/03/17 11:43 98 Room Air 10/03/17 11:43 Room Air 10/03/17 11:15 98.8 96 20 117/77 (90) 99 I/O 10/03/17 10/03/17 10/03/17 10/04/17 10/04/17 10/04/17 07:00 15:00 23:00 07:00 15:00 23:00 Intake Total 400 ml 780 ml Output Total 10 ml 1000 ml Balance 390 ml -220 ml Intake Oral 0 ml IV Total 780 ml Other 400 ml Output Urine Total 0 ml 1000 ml Stool Total 0 ml Estimated Blood Loss 10 ml Imaging Last Impressions Neck CT 10/03/17 1131 Signed Impressions: Service Date/Time: October 12:03 - CONCLUSION: Large right jugulodigastric mass suggestive of necrotic lymphadenopathy and 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 Casper Clifton MD Chest X-Ray 10/03/17 1122 Signed Impressions: Service Date/Time: October 11:41 - CONCLUSION: No evidence of acute cardiopulmonary disease. Casper Clifton MD Laboratory Test 10/03/17 11:35 10/03/17 11:45 10/03/17 21:00 10/04/17 04:05 White Blood Count 12.5 TH/MM3 8.5 TH/MM3 Red Blood Count 3.92 MIL/MM3 3.58 MIL/MM3 Hemoglobin 11.9 GM/DL 10.8 GM/DL Hematocrit 34.4 % 31.1 % Mean Corpuscular Volume 87.8 FL 86.8 FL Mean Corpuscular Hemoglobin 30.2 PG 30.0 PG Mean Corpuscular Hemoglobin Concent 34.5 % 34.6 % Red Cell Distribution Width 13.7 % 13.4 % Platelet Count 126 TH/MM3 118 TH/MM3 Mean Platelet Volume 7.3 FL 7.4 FL Neutrophils (%) (Auto) 71.3 % Lymphocytes (%) (Auto) 16.4 % Monocytes (%) (Auto) 11.6 % Eosinophils (%) (Auto) 0.3 % Basophils (%) (Auto) 0.4 % Neutrophils # (Auto) 8.9 TH/MM3 Lymphocytes # (Auto) 2.0 TH/MM3 Monocytes # (Auto) 1.4 TH/MM3 Eosinophils # (Auto) 0.0 TH/MM3 Basophils # (Auto) 0.1 TH/MM3 CBC Comment DIFF FINAL Differential Comment Prothrombin Time 13.2 SEC Prothromb Time International Ratio 1.2 RATIO Activated Partial Thromboplast Time 31.5 SEC Blood Urea Nitrogen 8 MG/DL 12 MG/DL Creatinine 0.64 MG/DL 0.55 MG/DL Random Glucose 94 MG/DL 136 MG/DL Total Protein 7.8 GM/DL Albumin 3.3 GM/DL Calcium Level 9.2 MG/DL 8.9 MG/DL Alkaline Phosphatase 177 U/L Aspartate Amino Transf (AST/SGOT) 28 U/L Alanine Aminotransferase (ALT/SGPT) 21 U/L Total Bilirubin 2.3 MG/DL Sodium Level 131 MEQ/L 137 MEQ/L Potassium Level 4.0 MEQ/L 3.8 MEQ/L Chloride Level 98 MEQ/L 102 MEQ/L Carbon Dioxide Level 25.0 MEQ/L 24.3 MEQ/L Anion Gap 8 MEQ/L 11 MEQ/L Estimat Glomerular Filtration Rate 128 ML/MIN 152 ML/MIN Lactic Acid Level 1.3 mmol/L Urine Color YELLOW Urine Turbidity CLEAR Urine pH 6.0 Urine Specific [place] 1.020 Urine Protein TRACE mg/dL Urine Glucose (UA) NEG mg/dL Urine Ketones NEG mg/dL Urine Occult Blood NEG Urine Nitrite NEG Urine Bilirubin NEG Urine Urobilinogen 2.0 MG/DL Urine Leukocyte Esterase MOD Urine RBC 2 /hpf Urine WBC 26 /hpf Urine Squamous Epithelial Cells <1 /hpf Urine Calcium Oxalate Crystals MOD /hpf Urine Bacteria RARE /hpf Urine Mucus FEW /lpf Microscopic Urinalysis Comment CATH-CULTURE IND Nasal Screen MRSA (PCR) MRSA NOT DETECTED Date/Time Source Procedure Growth Status 10/03/17 11:35 Blood Peripheral Aerobic Blood Culture Pending Received 10/03/17 11:35 Blood Peripheral Anaerobic Blood Culture Pending Received 10/03/17 11:35 Throat Group A Streptococcus Screen Pending Received 10/03/17 11:45 Urine Catheterized Urine Urine Culture Pending Received Physical Examination HEENT: Normocephalic; atraumatic; no jaundice. CHEST: Tracheostomy. CTA. CARDIAC: RRR ABDOMEN: Soft, nondistended, nontender; hepatosplenomegaly; bowel sounds are present in all four quadrants. EXTREMITIES: No clubbing, cyanosis, or edema. SKIN: Normal; no rash; no jaundice. YARDER: No focal deficits; alert and oriented times three. (Maggie Mederos) Assessment and Plan Plan ASSESSMENT: - Neck Mass. 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 The patient was evaluated by ENT who recommended the patient to have an elective tracheostomy, biopsy for probable head and neck cancer with necrotic lymph nodes. ENT/RDx oncology has evaluated patient. GI has been consulted for PEG tube placement. PLAN: - Plan for egd with peg tube placement - Obtain consents - NPO - Ancef 1 gram turbinated bone grinder - Incendiary Powder Mixer for TF recommendations- bolus and continuous - Supportive care - Further recommendations to follow based on results of above - PT seen and examined by Dr. Whitmore and myself and this note is written on his behalf (Maggie Mederos) Physician Comments Seen and examined, procedure explained to the patient including risk, benefits and possible complications. Will proceed as planned. (Tegan Whitmore MD) Maggie Mederos Oct 04, 2017 09:07 Tegan Whitmore MD Oct 04, 2017 11:28
[2017-10-04] MEDS: FAMOTIDINE 20 MG/2 ML VIAL IV PUSH SCH ×2 (09:20→20:10)
--- NOTE | 2017-10-04 09:23 | EKG ---
Date Performed: 10/03/2017 Time Performed: 11:38:08 PTAGE: 62 years EKG: Sinus rhythm NORMAL ECG PREVIOUS TRACING : 04/21/2017 16.15 Since prior tracing, voltage is higher. DOCTOR: Mauricio Sanchez Interpretating Date/Time 10/04/2017 09:20:09
--- NOTE | 2017-10-04 11:26 | GIPROC ---
[facility] [address] [facility]. [facility], [address] EGD WITH PEG PROCEDURE REPORT EXAM DATE: 10/04/2017 PATIENT NAME: Alan Sandhu MR#: [id number] BIRTHDATE: 1955 ATTENDING: Tegan Whitmore MD ORDER #: [id number] RIVETER HAND: Ruth John Stienbarger, Terrie, and Bianka Menjivar STATUS: inpatient INDICATIONS: The patient is a 62 yr old male here for an EGD with PEG due to placement of PEG PROCEDURE PERFORMED: EGD with PEG placement MEDICATIONS: None and Per Anesthesia. TOPICAL ANESTHETIC: none CONSENT: The patient understands the risks and benefits of the procedure and understands that these risks include, but are not limited to: sedation, allergic reaction, infection, perforation and/or bleeding. Alternative means of evaluation and treatment include, among others: physical exam, x-rays, and/or surgical intervention. The patient elects to proceed with this endoscopic procedure. medical equipment was checked for proper function. Hand hygiene and appropriate measures for infection prevention was taken. After the risks, benefits and alternatives of the procedure were thoroughly explained, Informed consent was verified, confirmed and timeout was successfully executed by the treatment team. The patient was anesthetized with topical anesthesia and the Pentax [id number] endoscope was introduced through the mouth and advanced to the second portion of the duodenum. The instrument was slowly withdrawn as the mucosa was fully examined. The upper, middle, and distal third of the esophagus were carefully inspected and no abnormalities were noted. The z-line was well seen at the GEJ. The endoscope was pushed into the fundus which was normal including a retroflexed view. The antrum, first and second part of the duodenum were unremarkable. The stomach was then inflated with air, and by a combination of transillumination and manual palpation, the site for the gastrostomy tube placement was selected and marked on the anterior abdominal wall. The skin of the anterior abdomen was surgically prepped and draped with sterile towels. Utilizing strict sterile technique, the selected site was then anesthetized with 1% xylocaine by injection into the skin and subcutaneous tissue. A 1 cm incision was made through the skin and subcutaneous tissue, and the needle/cannula assembly was then passed through the abdominal wall and through the anterior wall of the stomach, maintaining visualization with the endoscope. A snare device previously placed through the instrument channel was then opened and placed around the cannula, the needle was removed, and the insertion wire was passed through the cannula and into the stomach lumen. The snare was then loosened from the cannula, and repositioned to snare the insertion wire. The snare was then pulled up to the endoscope distal tip, and the scope was then withdrawn bringing with it the snare and insertion wire. The insertion wire was then released from the snare, and then loop-attached to the Ross 20 Fr gastrostomy tube. Using the "pull technique", the G-tube was then pulled into place by traction on the insertion wire at the abdominal wall end. The G-tube insertion site was then cleansed once again, and the external bolster was placed over the tube to secure it to the abdominal wall. A sterile dressing was then applied, and the procedure terminated. no abnormalities The gastroscope was then slowly withdrawn and removed. ADVERSE EVENT: There were no complications. IMPRESSIONS: 1. The upper, middle, and distal third of the esophagus were carefully inspected and no abnormalities were noted. The z-line was well seen at the GEJ. The endoscope was pushed into the fundus which was normal including a retroflexed view. The antrum, first and second part of the duodenum were unremarkable. 2. 20 F PEG tube placed successfully RECOMMENDATIONS: PEG recomendations: 1- NPO for 6 hours except for meds 2- Flush PEG tube every 6 hours with water and after each PEG feeding 3- May resume regular diet in the morning 4- May use Ensure or Boost etc. for PEG tube feeding REPEAT EXAM: procedure as needed Tegan Whitmore MD eSigned: Tegan Whitmore MD 10/04/2017 11:26 AM cc: PATIENT NAME: Alan Sandhu MR#: [id number]
[2017-10-04] MEDS: HYDROmorphone HCL PF 0.5 MG/0.5 ML SYRINGE IV PUSH PRN ×3 (12:00→23:25)
[2017-10-04] MEDS: ONDANSETRON HCL 4 MG/2 ML VIAL IV PUSH PRN (13:20)
--- NOTE | 2017-10-04 19:21 | HHI.CCPN ---
Subjective Remarks/Hospital Course Hospital Course: 62yM with history of prior admission for hyponatremia complicated by central pontine myelinolysis with extended length of stay for multiple acute on chronic medical conditions and prior trach for chronic respiratory failure s/p decannulation who presents from SNF for right sided neck swelling. he is a very poor historian and difficult to obtain a complete past medical history. He states this swelling is only 1.5 days old, but per SNF, this has been enlarging for weeks. the patient denies shortness of breath. can manage secretions. can lie flat. not short of breath. no fevers, chills. no other associated symptoms. no swelling. ENT evaluated the patient and wants to admit patient for elective tracheostomy, biopsy for probable head and neck cancer with necrotic lymph nodes. Subjective: 10/04: stable s/p trach/ peg. on room air. no complaints. ready for d/c back to facility. Objective Vital Signs Date Time Temp Pulse Resp B/P (MAP) Pulse Ox O2 Delivery O2 Flow Rate FiO2 10/04/17 18:00 62 10/04/17 16:00 98.2 21 119/68 (85) 100 10/04/17 09:37 T-piece 5.00 28 Intake and Output 10/04/17 10/04/17 10/04/17 07:59 15:59 23:59 Intake Total 780 ml 200 ml 850 ml Output Total 1000 ml 650 ml Balance -220 ml 200 ml 200 ml Result Diagram: 10/04/17 0405 10/04/17 0405 Other Results Microbiology Date/Time Source Procedure Growth Status 10/03/17 11:35 Throat Group A Streptococcus Screen (ESTELLA) - Final Complete 10/03/17 11:45 Urine Catheterized Urine Urine Culture - Final 50-100,000 CFU/ML MIXED BERNARD... 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 Casper Clifton MD Chest X-Ray 10/03/17 1122 Signed Impressions: Service Date/Time: October 11:41 - CONCLUSION: No evidence of acute cardiopulmonary disease. Casper Clifton MD Objective Remarks gen: middle-aged male, lying in bed, no distress. heent: perrl. mucous membranes moist. noted oropharyngeal mass in the hypoharynx , tongue unobstructed. managing secretions. swallowing easy. large anterior right lymph node which appears fixed and nonmobile. tender to palpation neck: trachea deviated to the left. trach in place. chest: unlabored. on room air. equal chest rise. lying flat on my exam. cv: normal rate, regular rhythm. sinus on tele. abd: soft, nontender, nondistended. no guarding. new PEG site clean/dry/intact. extr: distal pulses 2+. no edema. neuro: RASS 0. CAM -. follows commands. A/P Assessment and Plan Assessment: 62yM with new neck mass likely head and neck cancer, now s/p trach/ PEG. can complete work-up as outpatient. patient wants to go back to facility. Neck Mass Head and Neck Cancer - s/p trach and peg - d/c to facility - needs medical oncology follow up - needs radiation oncology follow up - needs ENT follow up Tu Bryant MD Oct 04, 2017 19:21
--- NOTE | 2017-10-04 20:00 | MP ---
cc: MD PAWAN,MICHELE DATE OF SURGERY 10/03/2017 PREOPERATIVE DIAGNOSIS Impending airway obstruction, large mass in the posterior pharynx and lateral neck. POSTOPERATIVE DIAGNOSIS Impending airway obstruction, large mass in the posterior pharynx and lateral neck. OPERATIVE PROCEDURE Emergency redo tracheostomy. SURGEON Dr. Oro. ANESTHESIA General. ESTIMATED BLOOD LOSS 3 cc. PROCEDURE IN DETAIL The patient prepped and draped usual fashion and positioned in dorsiflexion of the neck. The incision is made just above the sternal notch, deepened down with a hemostat down through the trachea. A right angle was used to divide the tissues which are fairly dense from previous tracheostomy there. Once there the bronchoscope was inserted through endotracheal tube and then endotracheal tube is somewhat withdrawn. At this point Angiocath is placed and through the Angiocath catheter a guidewire was inserted. On direct vision over the guidewire a punch dilator and blue rhino dilator are placed and then 8 Shiley cannula guided over the guidewire into the trachea position, checked with the bronchoscope and end-tidal CO2 checked. The patient is suctioned out of the debris and then tracheal cannula sutured to skin with 2-0 Prolene, secured with a band around the neck. The patient tolerated the procedure well. Michele Oro SJ/ROSELYN /7:30 PM /7:58 PM
[2017-10-04] MEDS: TEMAZEPAM 15 MG CAP PO PRN (21:00)
--- NOTE | 2017-10-04 21:06 | MB ---
cc: NINO JJ M.D., RUBY ANNE E. M.D. DATE OF CONSULTATION 10/04/2017 DATE OF [address] Jj[address] CHIEF COMPLA[address] Jj requested consultation for Mr. Sandhu with head and neck mass associated with right neck adenopathy. HISTORY OF PRESENT ILLNESS Mr. Sandhu is a 62-year-old man. He is accompanied by a family friend. He has recently had a redo tracheostomy for protection of his airway. He has a large pharyngeal mass and right neck adenopathy. He reports that it has increased in size significantly for over a week's time. He is a resident at a [facility] facility. He was brought in because of the above with increasing symptoms of respiratory distress. The patient history was obtained through review of the electronic medical records. He was admitted to the critical care team back in March 2017 with the history of alcohol abuse, very altered. He was laying on the couch, had slurred speech. He was brought in with life-threatening hyponatremia, dehydration and rhabdomyolysis, acute kidney injury, metabolic encephalopathy, end-stage renal disease. He was critically ill and was cared for by the ICU team and was in the hospital for several months. In the process palliative care was consulted. He was supported and ultimately recovered. Last palliative care note from 07/10/2017 showed the patient has had decannulization of the tracheostomy tube. PEG tube was removed. The patient was alert, verbally communicative. He was participating in his decision making. He was being discharged to the [facility] facility for physical strengthening. His goal ultimately was to return home. He was awaiting his daughter Amie from being released from the formerly [facility] in August,. His daughter is still in fdc. He came in with the complaint of lump in his right side of the neck and muffled voice. He reports a very short history for this. It appears it might be have been progressing over a period of time. There are no other imaging study of the neck during the duration of his previous hospitalization. CT scan of the neck from October 03 shows a large right jugular digastric mass suggestive of necrotic lymph node. He has a right posterior pharyngeal mass. It appears he has had tracheostomy and a redo tracheostomy by Dr. Oro. I cannot tell from the medical records if indeed a biopsy of the right posterior pharyngeal mass was done. The patient seems to recall that a biopsy of the neck mass was done, although no records of that is available at the time of the consultation. At the time of consultation he is awake, alert, gesturing mouthing out words which was difficult to understand. He is stable after his tracheostomy. His PEG tube has been placed. He is eager to get back to the [facility] facility. He reports a rapid progression of his right neck mass. He has rapid progression of symptoms. He did denies any other problems. He moves all four extremities. Denies any abdominal complaints, urinary complaints. PAST MEDICAL HISTORY Alcohol abuse, alcoholic liver disease, history of life-threatening hyponatremia, acute renal failure, osmotic myelinolysis, C. diff colitis, oral candidiasis, bilateral thalamic stroke, seizure disorder, depression, insomnia. PAST SURGICAL HISTORY PEG tube placement, tracheostomy, tracheostomy redo. Hernia repair. SOCIAL HISTORY Denies any tobacco, alcohol or illicit drug use at present. He has significant history of alcohol abuse. FAMILY HISTORY No family history of cancer. PHYSICAL EXAMINATION VITAL SIGNS: Temperature 98.2, heart rate 62, respiratory rate 21, blood pressure 119/68, saturation 100%. GENERAL: Mr. Sandhu is a 62-year-old man who looks his stated age. He is unshaven. He seems to be anxious and gestures. He has very poor dentition. NECK: The neck is supple. There is a right neck mass. His tracheostomy is in place. LUNGS: Lungs are clear. CARDIOVASCULAR: Exam reveals normal rate, rhythm. ABDOMEN: Benign. PEG tube site in place. EXTREMITIES: Lower extremity, no edema. He moves all four extremities. LABORATORY DATA Significant for thrombocytopenia and mild anemia. Renal function is normal. Sodium 137, total bilirubin 2.3. IMAGING STUDIES CT scan abdomen and pelvis from 05/08/2017 significant for cirrhotic appearing liver and splenomegaly. ASSESSMENT/PLAN Mr. Sandhu is a 62-year-old man with history of alcohol abuse, liver cirrhosis and splenomegaly. This explains his thrombocytopenia. He has a history of prolonged hospitalization early part of this year. He recovered and was discharged to a [facility] facility. He comes back with an enlarging right neck mass. The duration of this neck mass and its history is difficult to tell from the patient who reports and maintains that this has been growing over a week's time. Family friend also has not noticed it when he first got into the [facility] facility and it is frankly obvious on today's exam. We discussed plan to obtain a biopsy either of the right posterior pharyngeal mass or the right neck mass. We need a diagnosis to establish cancer. P16 will be checked. We discussed in general terms the treatment for head and neck cancer to include concurrent chemotherapy and radiation. He will need to complete staging evaluation that is to rule out distant metastatic disease. CT chest or CT PET scan on outpatient basis would be appropriate. I concur with Dr. Barrera. He is stable with this tracheostomy in place and PEG tube in place. He may complete his workup as an outpatient. He wants to go back to the facility. We will also need to clarify if indeed previous workup through ENT was done already. Those records and not available. Contact information with medical oncology is provided. We will need to work with radiation oncology, medical oncology to coordinate his concurrent chemotherapy and radiation treatment provided that his metastatic workup is negative. His performance status is rather poor which may improve. He appears to have been recovering from a prolonged hospitalization when he was discharged. He may improve still. I suspect he is a better candidate for cetuximab rather than concurrent chemotherapy. His questions were answered to his satisfaction. Information is provided. Demetrice Dunn MD RAD/EO /8:15 PM /8:43 PM
[2017-10-05] VITALS (15 sets, daily range): BP systolic 118–139; BP diastolic 72–98; PULSE 66–106; RESP 18–21; TEMP 98.2–98.9; O2SAT 93–100
[2017-10-05] MEDS: ONDANSETRON HCL 4 MG/2 ML VIAL IV PUSH PRN ×4 (00:09→22:49)
[2017-10-05] MEDS: CHLORHEXIDINE GLUCONATE 2 % 1 PACK (2 CLOTHS) TOP SCH (04:00)
[2017-10-05] MEDS ORDERED: PROMETHAZINE INJ 25 MG/ML VIAL IM ONE (04:15)
[2017-10-05 04:45] LABS: HEMATOCRIT 31.9 % (39.0-51.0); MEAN CELL VOLUME 88.1 FL (80.0-100.0); MEAN CORPUSCULAR HEMOGLOBIN 30.6 PG (27.0-34.0); MEAN CORPUSCULAR HGB CONC 34.7 % (32.0-36.0); PLATELET COUNT 138 TH/MM3 (150-450); RED BLOOD COUNT 3.63 MIL/MM3 (4.50-5.90); RED CELL DISTRIBUTION WIDTH 13.8 % (11.6-17.2); REVIEW FLAG FINAL; WHITE BLOOD COUNT 8.2 TH/MM3 (4.0-11.0)
[2017-10-05] MEDS: RESP: ALBUTEROL 2.5 MG/IPRATROPIUM 0.5 MG NEB (SCH) INH ×4 (04:57→21:51)
[2017-10-05 05:10] LABS: BICARBONATE 23.9 MEQ/L (21.0-32.0); POTASSIUM 3.1 MEQ/L (3.5-5.1)
[2017-10-05] MEDS: SODIUM CHLOR 0.9% 1000 ML INJ 1,000 ML IV SCH ×3 (05:23→18:41)
[2017-10-05] MEDS: INSULIN NovoLIN REGULAR SUPPLEMENTAL SCALE SQ SCH ×4 (05:23→17:22)
[2017-10-05] MEDS: POTASSIUM CHLOR 20 MEQ PREMIX 100 ML IV PRN ×4 (06:05→16:57)
[2017-10-05] MEDS: CHLORHEXIDINE 0.12% (ORAL KIT) 15 ML CUP MT SCH ×2 (08:00→19:40)
[2017-10-05] MEDS: FAMOTIDINE 20 MG/2 ML VIAL IV PUSH SCH ×2 (08:43→19:39)
[2017-10-05] MEDS: HYDROmorphone HCL PF 0.5 MG/0.5 ML SYRINGE IV PUSH PRN ×4 (10:19→20:39)
--- NOTE | 2017-10-05 10:45 | HHI.DS ---
Discharge Summary Admission Date Oct 03, 2017 at 13:43 Discharge Date: Oct 05, 2017 Admitting Diagnosis Right Neck Mass with partial Airway compromise (1) Head and neck lymphadenopathy ICD Code: R59.1 - Generalized enlarged lymph nodes Status: Acute (2) Head and neck malignancy ICD Code: C76.0 - Malignant neoplasm of head, face and neck (3) Neck mass ICD Code: R22.1 - Localized swelling, mass and lump, neck Diagnosis: Principal Status: Acute Procedures 10/03 - trach 10/04 - PEG Brief History - From Admission 62yM with history of prior admission for hyponatremia complicated by central pontine myelinolysis with extended length of stay for multiple acute on chronic medical conditions and prior trach for chronic respiratory failure s/p decannulation who presents from SNF for right sided neck swelling. he is a very poor historian and difficult to obtain a complete past medical history. He states this swelling is only 1.5 days old, but per SNF, this has been enlarging for weeks. the patient denies shortness of breath. can manage secretions. can lie flat. not short of breath. no fevers, chills. no other associated symptoms. no swelling. ENT evaluated the patient and wants to admit patient for elective tracheostomy, biopsy for probable head and neck cancer with necrotic lymph nodes. CBC/BMP: 10/05/17 0355 10/05/17 0355 Significant Findings Laboratory Tests Test 10/03/17 11:35 10/03/17 11:45 10/03/17 21:00 10/04/17 04:05 White Blood Count 12.5 TH/MM3 (4.0-11.0) Red Blood Count 3.92 MIL/MM3 (4.50-5.90) 3.58 MIL/MM3 (4.50-5.90) Hemoglobin 11.9 GM/DL (13.0-17.0) 10.8 GM/DL (13.0-17.0) Hematocrit 34.4 % (39.0-51.0) 31.1 % (39.0-51.0) Platelet Count 126 TH/MM3 (150-450) 118 TH/MM3 (150-450) Neutrophils (%) (Auto) 71.3 % (16.0-70.0) Monocytes (%) (Auto) 11.6 % (0.0-8.0) Neutrophils # (Auto) 8.9 TH/MM3 (1.8-7.7) Monocytes # (Auto) 1.4 TH/MM3 (0-0.9) Prothrombin Time 13.2 SEC (9.8-11.6) Activated Partial Thromboplast Time 31.5 SEC (24.3-30.1) Albumin 3.3 GM/DL (3.4-5.0) Alkaline Phosphatase 177 U/L (45-117) Total Bilirubin 2.3 MG/DL (0.2-1.0) Sodium Level 131 MEQ/L (136-145) Urine Leukocyte Esterase MOD (NEG) Urine WBC 26 /hpf (0-5) Urine Calcium Oxalate Crystals MOD /hpf (NONE) Urine Bacteria RARE /hpf (NONE) Urine Mucus FEW /lpf (OCC) Creatinine 0.55 MG/DL (0.60-1.30) Random Glucose 136 MG/DL (74-106) Test 10/05/17 03:55 Red Blood Count 3.63 MIL/MM3 (4.50-5.90) Hemoglobin 11.1 GM/DL (13.0-17.0) Hematocrit 31.9 % (39.0-51.0) Platelet Count 138 TH/MM3 (150-450) Creatinine 0.47 MG/DL (0.60-1.30) Potassium Level 3.1 MEQ/L (3.5-5.1) Imaging Last Impressions Neck CT 10/03/17 1131 Signed Impressions: Service Date/Time: October 12:03 - CONCLUSION: Large right jugulodigastric mass suggestive of necrotic lymphadenopathy and 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 Casper Clifton MD Chest X-Ray 10/03/17 1122 Signed Impressions: Service Date/Time: October 11:41 - CONCLUSION: No evidence of acute cardiopulmonary disease. Casper Clifton MD PE at Discharge GENERAL: This is a well-nourished, well-developed patient, in no apparent distress. SKIN: Warm and dry. HEENT: Normocephalic. Pupils equal round and reactive. Nose without bleeding. Airway patent. NECK: Tracheostomy in place, site patent CDI trach collar, Neck mass no erythema noted CARDIOVASCULAR: Regular rate and rhythm without murmurs, gallops, or rubs. RESPIRATORY: Clear to auscultation. Breath sounds equal bilaterally. No wheezes , rales, or rhonchi. GASTROINTESTINAL: Abdomen slightly distended. Bowel Sounds hypoactive. PEG in place, small amount dry blood at the incision site. MUSCULOSKELETAL: Extremities without clubbing, cyanosis, or edema. NEUROLOGICAL: Awake and alert. Oriented to place, person. No focal neuro deficit. Moves all extremities. Mouths words. Pt update on day of discharge Follow-up visit right neck mass, possible malignancy. Patient seen and examined at the bedside today. Reports he is having some constipation and unable to move his bowels. States he wants to walk to the bathroom has not gotten out of bed yet. As per RN, patient had 2 loose stools yesterday. Had his PEG placed and was started on tube feeds at 20 ML's an hour however it needs to be stopped as patient had some nausea and vomiting yesterday. Patient denies any nausea and vomiting right now. States pain is aggravated only with movement and with palpation of the abdomen. States he is not short of breath, no chest pain. Hospital Course Patient is a 62-year-old male who was admitted previously in March 2017 for EtOH , altered mental status. He was brought in with life-threatening hyponatremia and dehydration and rhabdomyolysis, AK I, metabolic encephalopathy, end-stage renal disease. His clinical status has improved during that time and he was discharged to [facility] facility. Patient was sent back to the hospital by the snf facility 07/04/17 for right-sided neck swelling. As per snf facility the neck swelling has been enlarging for weeks. ENT was consulted and they did aspiration at the bedside and was sent to pathology, pending results. Patient underwent tracheostomy for airway protection, and PEG placement. Plan for patient is to have a workup with hematology/ oncology and also radiation oncology for the neck mass. Dr. Powell have seen the patient and Dr. Willingham has been provided for coordination of care with radiation oncology, medical oncology. Possible nausea vomiting is related to anesthesia use since patient just had tracheostomy placement yesterday and also PEG placement done yesterday. Resume to feeds. May advance diet as tolerated per dietitian review in snf facility. Patient has met maximal benefits of hospitalization. Clinically stable for discharge. Pt Condition on Discharge: Fair Discharge Disposition: Discharge to SNF Discharge Time: > 30 minutes Discharge Instructions DIET: Follow Instructions for: On Tube Feeding Additional Diet Instructions: Jevity 1.5, 20 ML/hr Activities you can perform: Regular-No Restrictions, Weight Bearing as Edilia Activities to Avoid: Driving Follow up Referrals: Ear Nose Throat - 1 Week with Justino Willingham MD Oncology - 1 Week @ [facility] Oncology/Hematology - 1 Week with Demetrice Dunn MD PCP Follow-up - 1 Week New Medications: Ipratropium-Albuterol Neb (Duoneb) 0.5-2.5 Mg/3 Ml Neb 1 AMPULE INH Q2HR NEB PRN for WHEEZING, #30 ML Continued Medications: Aspirin DR (Aspirin Adult Low Strength) 81 Mg Tabdr 81 MG PO DAILY for Heart Health, TAB Cholestyramine Light (Cholestyramine Light) 4 Gm/Pkt Powd 4 GM PO DAILY for Dyslipidemia, #1 BOX 0 Refills Mix 1 packet (4gm) in 8oz of liquid Levetiracetam (Keppra) 500 Mg Tab 1000 MG PO Q12HR for Seizure Control for 30 Days, TAB Mirtazapine (Remeron) 15 Mg Tab 15 MG PO HS for Poor Appetite, #30 TAB 0 Refills Multiple Vitamins W/ Minerals (Thera-M) 1 Tab 1 TAB PO DAILY for Nutritional Supplement, TAB 0 Refills Trazodone (Trazodone) 50 Mg Tab 75 MG PO HS for Insomnia for 30 Days, TAB Additional Information I have seen and examined the patient and agree with the assessment and plan as documented by the nurse practitioner. stable on room air, safe for discharge back to facility. patient agrees and wishes to be discharged and feels safe to return. Sena Talbot Oct 05, 2017 10:45 Tu Bryant MD Oct 05, 2017 16:17
[2017-10-05] MEDS ORDERED: IPRASOL INH (10:59)
--- NOTE | 2017-10-05 22:04 | RC ---
cc: NIALL ZUNIGA DAVID DATE OF SERVICE 10/04/17 HISTORY Mr. Sandhu is a 62-year-old male. 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 Pathology is pending today. He has a tracheostomy placed. He has poor teeth. He has a PEG tube being placed. He likely has a primary head neck cancer. Discussed likely __ curative cancer. We discussed potential tooth extraction prior to radiation therapy. He will likely be recommended chemotherapy as well. We will schedule, ___ follow up as inpatient, schedule reevaluation outpatient next week. ____ today. Niall Zuniga MD Radiation Oncologist ASHWINI/ROSELYN /12:22 PM /9:52 PM
[2017-10-06] VITALS (15 sets, daily range): BP systolic 98–163; BP diastolic 64–88; PULSE 84–105; RESP 18–23; TEMP 98.2–99; O2SAT 93–100
[2017-10-06] MEDS: HYDROmorphone HCL PF 0.5 MG/0.5 ML SYRINGE IV PUSH PRN ×5 (00:32→18:18)
[2017-10-06] MEDS: TEMAZEPAM 15 MG CAP PO PRN (02:36)
[2017-10-06] MEDS: CHLORHEXIDINE GLUCONATE 2 % 1 PACK (2 CLOTHS) TOP SCH (04:00)
[2017-10-06] MEDS: RESP: ALBUTEROL 2.5 MG/IPRATROPIUM 0.5 MG NEB (SCH) INH ×4 (04:01→21:42)
[2017-10-06] MEDS: SODIUM CHLOR 0.9% 1000 ML INJ 1,000 ML IV SCH ×2 (05:18→18:09)
[2017-10-06] MEDS: INSULIN NovoLIN REGULAR SUPPLEMENTAL SCALE SQ SCH ×4 (06:00→18:00)
[2017-10-06 06:22] LABS: HEMATOCRIT 32.2 % (39.0-51.0); MEAN CELL VOLUME 87.5 FL (80.0-100.0); MEAN CORPUSCULAR HEMOGLOBIN 30.3 PG (27.0-34.0); MEAN CORPUSCULAR HGB CONC 34.6 % (32.0-36.0); PLATELET COUNT 149 TH/MM3 (150-450); RED BLOOD COUNT 3.67 MIL/MM3 (4.50-5.90); REVIEW FLAG FINAL
[2017-10-06 06:43] LABS: BICARBONATE 19.1 MEQ/L (21.0-32.0); POTASSIUM 3.5 MEQ/L (3.5-5.1)
[2017-10-06] MEDS: CHLORHEXIDINE 0.12% (ORAL KIT) 15 ML CUP MT SCH ×2 (08:00→20:00)
[2017-10-06] MEDS: FAMOTIDINE 20 MG/2 ML VIAL IV PUSH SCH ×2 (08:22→20:16)
--- NOTE | 2017-10-06 11:28 | HHI.PR ---
Subjective Remarks in no acute distress. complaining of some abdominal cramps. no other complaints. afebrile. Objective Vitals Vital Signs Date Time Temp Pulse Resp B/P (MAP) Pulse Ox O2 Delivery O2 Flow Rate FiO2 10/06/17 10:00 84 10/06/17 09:03 100 T-piece 5.00 28 10/06/17 08:00 84 10/06/17 08:00 98.3 105 20 133/73 (93) 98 10/06/17 07:15 96 Trach Collar 28 10/06/17 06:00 84 10/06/17 04:00 84 10/06/17 04:00 98.5 84 23 159/88 (111) 96 10/06/17 02:00 94 10/06/17 00:00 98.2 94 20 98/64 (75) 94 10/06/17 00:00 94 10/05/17 23:15 93 Trach Collar 35 10/05/17 22:00 106 10/05/17 20:00 98.5 106 21 138/91 (107) 100 10/05/17 20:00 106 10/05/17 19:00 96 Trach Collar 21 10/05/17 18:00 66 10/05/17 16:00 98.5 84 21 139/98 (112) 95 10/05/17 16:00 84 10/05/17 14:00 82 10/05/17 12:00 98.4 77 20 120/73 (89) 97 10/05/17 12:00 77 I/O 10/05/17 10/05/17 10/05/17 10/06/17 10/06/17 10/06/17 07:00 15:00 23:00 07:00 15:00 23:00 Intake Total 994 ml 200 ml 2190 ml 1051 ml Output Total 950 ml 800 ml 500 ml Balance 44 ml 200 ml 1390 ml 551 ml IV Total 994 ml 200 ml 2190 ml 1051 ml Output Urine Total 650 ml 800 ml 500 ml Emesis 300 ml # Bowel Movements 0 Result Diagram: 10/06/17 0443 10/06/17 0443 Imaging Last Impressions Neck CT 10/03/17 1131 Signed Impressions: Service Date/Time: October 12:03 - CONCLUSION: Large right jugulodigastric mass suggestive of necrotic lymphadenopathy and 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 Casper Clifton MD Chest X-Ray 10/03/17 1122 Signed Impressions: Service Date/Time: October 11:41 - CONCLUSION: No evidence of acute cardiopulmonary disease. Casper Clifton MD Objective Remarks GENERAL: This is a well-nourished, well-developed patient, in no apparent distress. Neck; trach in place. CARDIOVASCULAR: Regular rate and regular rhythm without murmurs, gallops, or rubs. RESPIRATORY: Clear to auscultation. Breath sounds equal bilaterally. No wheezes , rales, or rhonchi. GASTROINTESTINAL: Abdomen soft, non-tender, nondistended. Normal, active bowel sounds MUSCULOSKELETAL: Extremities without clubbing, cyanosis, or edema. NEURO: Alert & Oriented x4 to person, place, time, situation. Moves all ext x4 Procedures 10/03 - trach 10/04 - PEG Medications and IVs Current Medications Ampicillin Sodium/ Sulbactam Sodium (Unasyn Inj) 3 gm ONCE ONCE IM Last administered on 10/03/17 11:57; Start 10/03/17 at 11:30; Stop 10/03/17 at 11:31 ; Status DC Dexamethasone Sodium Phosphate (Decadron Inj) 10 mg ONCE ONCE IV PUSH Last administered on 10/03/17 11:56; Start 10/03/17 at 11:30; Stop 10/03/17 at 11:31 ; Status DC Iohexol (Omnipaque 350 Inj) 76 ml STK-MED ONCE IVCONTRAST Last administered on 10/03/17 11:07; Start 10/03/17 at 11:07; Stop 10/03/17 at 12:05; Status DC Gelatin (Gelfoam 100 Top) 1 foam STK-MED ONCE .ROUTE ; Start 10/03/17 at 18:10; Stop 10/03/17 at 18:11; Status DC Lidocaine/ Epinephrine (Xylocaine-Epi 1%-1:100,000 Inj) 20 ml STK-MED ONCE .ROUTE ; Start 10/03/17 at 18:11; Stop 10/03/17 at 18:12; Status DC Chlorhexidine Gluconate (Peridex 0.12% Liq) 15 ml BID@08,20 MT Last administered on 10/06/17t 08:00; Start 10/03/17 at 20:00 Magnesium Oxide (Mag-Ox) 800 mg UNSCH PRN PO For Magnesium 1.2 - 1.6 mg/dL; Start 10/03/17 at 19:45 Magnesium Sulfate 4 gm/Sodium Chloride 100 ml @ 50 mls/hr UNSCH PRN IV For Magnesium 0.9 - 1.1 mg/dL; Start 10/03/17 at 19:45 Magnesium Sulfate 2 gm/Sodium Chloride 100 ml @ 50 mls/hr UNSCH PRN IV For Magnesium 1.2 - 1.6 mg/dL; Start 10/03/17 at 19:45 Potassium Chloride 100 ml @ 50 mls/hr Q2H PRN IV For Potassium 2.8 - 3.2 mEq/ L Last administered on 10/05/17t 16:57; Start 10/03/17 at 19:45 Potassium Chloride 100 ml @ 50 mls/hr Q2H PRN IV For Potassium 3.3 - 3.5 mEq/L ; Start 10/03/17 at 19:45 Potassium Chloride 100 ml @ 50 mls/hr Q2H PRN IV For Potassium 2.8 - 3.2 mEq/L ; Start 10/03/17 at 19:45 Potassium Chloride 100 ml @ 25 mls/hr UNSCH PRN IV For Potassium 3.3 - 3.5 mEq /L; Start 10/03/17 at 19:45 Potassium Phosphate (K-Phos) 2,000 mg Q4H PRN PO For Phosphorus < 2.5 mg/dL; Start 10/03/17 at 19:45 Potassium Phosphate (K-Phos) 2,000 mg UNSCH PRN PO/TUBE SEE LABEL COMMENTS; Start 10/03/17 at 19:45 Potassium Phosphate 30 mmol/ Sodium Chloride 260 ml @ 42 mls/hr UNSCH PRN IV SEE LABEL COMMENTS; Start 10/03/17 at 19:45 Sodium Phosphate 30 mmol/Sodium Chloride 250 ml @ 42 mls/hr UNSCH PRN IV For Phosphorus < 2.5 mg/dL; Start 10/03/17 at 19:45 Dextrose (D50w (Vial) Inj) 25 ml UNSCH PRN IV PUSH HYPOGLYCEMIA-SEE COMMENTS; Start 10/03/17 at 19:45 Insulin Human Regular (NovoLIN R SUPPLEMENTAL SCALE) 1 Q6HR SQ ; Start 10/04/17 at 00:00 Albuterol/ Ipratropium (Duoneb Neb) 1 ampule Q6HR NEB INH Last administered on 10/06/17 09:01; Start 10/03/17 at 22:00 Albuterol/ Ipratropium (Duoneb Neb) 1 ampule Q2HR NEB PRN INH WHEEZING; Start 10/03/17 at 19:45 Sodium Chloride 1,000 ml @ 84 mls/hr [id number] IV Last administered on 05:18; Start 10/03/17 at 20:00 Famotidine (Pepcid Inj) 20 mg Q12HR IV PUSH Last administered on 10/06/17 08: 22; Start 10/03/17 at 21:00 Ondansetron HCl (Zofran Inj) 4 mg Q6H PRN IV PUSH NAUSEA OR VOMITING Last administered on 10/05/17 22:49; Start 10/03/17 at 19:45 Heparin Sodium (Porcine) (Heparin Inj) 5,000 units Q8H SQ ; Start 10/03/17 at 22 :00; Status Future Hold Miscellaneous Information 1 [id number] XX ; Start 10/03/17 at 19:45 Chlorhexidine Gluconate (Chlorhexidine 2% Cloth) 3 pack Taper DAILY@04 TOP ; Start 10/04/17 at 04:00; Stop 09/30/18 at 03:59 Chlorhexidine Gluconate (Chlorhexidine 2% Cloth) 3 pack UNSCH PRN TOP HYGIENIC CARE; Start 10/03/17 at 19:45 Hydromorphone HCl (Dilaudid Pf Inj) 0.5 mg Q4H PRN IV PUSH pain 7-10 or not taking po Last administered on 10/06/17 08:00; Start 10/03/17 at 19:45 Miscellaneous Information ALL NURSING DEPARTME... UNSCH PRN .XX SEE LABEL COMMENTS; Start 10/03/17 at 20:00; Stop 10/04/17 at 19:59; Status DC Cefazolin Sodium 1000 mg/Sodium Chloride 100 ml @ 200 mls/hr HOP STRAINER IV Last administered on 10/04/17 10:36; Start 10/03/17 at 20:30; Stop 10/06/17 at 20:29 Temazepam (Restoril) 15 mg HS PRN PO insomnia Last administered on 10/06/17 02 :36; Start 10/04/17 at 20:45 Promethazine HCl (Phenergan Inj) 12.5 mg ONCE ONCE IM Last administered on 04:18; Start 10/05/17 at 04:15; Stop 10/05/17 at 04:16; Status DC A/P Problem List: (1) Head and neck lymphadenopathy ICD Code: R59.1 - Generalized enlarged lymph nodes Status: Acute (2) Head and neck malignancy ICD Code: C76.0 - Malignant neoplasm of head, face and neck (3) Neck mass ICD Code: R22.1 - Localized swelling, mass and lump, neck Status: Acute Assessment and Plan A/P Neck Mass Head and Neck Cancer - s/p trach and peg - awaiting d/c to facility - needs medical oncology follow up - needs radiation oncology follow up - needs ENT follow up Discharge Planning case management notes reviewed- awaiting discharge to nursing facility tomorrow. Amber Trevizo MD Oct 06, 2017 11:28
--- NOTE | 2017-10-06 16:48 | HHI.GIFU ---
Subjective Remarks Resting in bed in no apparent distress. Reports mild abdominal cramping. (Emilee Lovett) Objective Vitals I&O Vital Signs Date Time Temp Pulse Resp B/P (MAP) Pulse Ox O2 Delivery O2 Flow Rate FiO2 10/06/17 16:00 84 10/06/17 14:00 84 10/06/17 13:00 98.9 96 18 163/78 (106) 99 10/06/17 12:00 84 10/06/17 10:00 84 10/06/17 09:03 100 T-piece 5.00 28 10/06/17 08:00 84 10/06/17 08:00 98.3 105 20 133/73 (93) 98 10/06/17 07:15 96 Trach Collar 28 10/06/17 06:00 84 10/06/17 04:00 84 10/06/17 04:00 98.5 84 23 159/88 (111) 96 10/06/17 02:00 94 10/06/17 00:00 98.2 94 20 98/64 (75) 94 10/06/17 00:00 94 10/05/17 23:15 93 Trach Collar 35 10/05/17 22:00 106 10/05/17 20:00 98.5 106 21 138/91 (107) 100 10/05/17 20:00 106 10/05/17 19:00 96 Trach Collar 21 10/05/17 18:00 66 I/O 10/05/17 10/05/17 10/05/17 10/06/17 10/06/17 10/06/17 07:00 15:00 23:00 07:00 15:00 23:00 Intake Total 994 ml 200 ml 2190 ml 1051 ml Output Total 950 ml 800 ml 500 ml Balance 44 ml 200 ml 1390 ml 551 ml IV Total 994 ml 200 ml 2190 ml 1051 ml Output Urine Total 650 ml 800 ml 500 ml Emesis 300 ml # Bowel Movements 0 Laboratory Laboratory Tests Test 10/06/17 04:43 White Blood Count 8.0 Red Blood Count 3.67 Hemoglobin 11.1 Hematocrit 32.2 Mean Corpuscular Volume 87.5 Mean Corpuscular Hemoglobin 30.3 Mean Corpuscular Hemoglobin Concent 34.6 Red Cell Distribution Width 14.0 Platelet Count 149 Mean Platelet Volume 7.1 Blood Urea Nitrogen 8 Creatinine 0.42 Random Glucose 73 Calcium Level 8.6 Sodium Level 138 Potassium Level 3.5 Chloride Level 105 Carbon Dioxide Level 19.1 Anion Gap 14 Estimat Glomerular Filtration Rate 207 Date/Time Source Procedure Growth Status 10/03/17 11:35 Blood Peripheral Aerobic Blood Culture - Preliminary NO GROWTH IN 3 DAYS Resulted 10/03/17 11:35 Blood Peripheral Anaerobic Blood Culture - Preliminary NO GROWTH IN 3 DAYS Resulted 10/03/17 11:35 Throat Group A Streptococcus Screen - Final NO GP A BETA STREP ISOLATED. Complete 10/03/17 11:45 Urine Catheterized Urine Urine Culture - Final 50-100,000 CFU/ML MIXED BERNARD... 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 Casper Clifton MD Chest X-Ray 10/03/17 1122 Signed Impressions: Service Date/Time: October 11:41 - CONCLUSION: No evidence of acute cardiopulmonary disease. Casper Clifton MD Physical Exam HEENT: Normocephalic; atraumatic; no jaundice. Throat is clear. NECK: Neck is supple CHEST: CTA CARDIAC: RRR ABDOMEN: Soft, nondistended, nontender; no hepatosplenomegaly; bowel sounds are present in all four quadrants. EXTREMITIES: No clubbing, cyanosis, or edema. SKIN: Normal; no rash; no jaundice. LDR NURSE: No focal deficits; alert and oriented times three. (Emilee Lovett) Assessment and Plan Plan ASSESSMENT: - Neck Mass. 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 The patient was evaluated by ENT who recommended the patient to have an elective tracheostomy, biopsy for probable head and neck cancer with necrotic lymph nodes. ENT/RDx oncology has evaluated patient. EGD with PEG tube placement (10/04)--1.The upper, middle, and distal third of the esophagus were carefully inspected and no abnormalities were noted. The z-line was well seen at the GEJ. The endoscope was pushed into the fundus which was normal including a retroflexed view. The antrum, first and second part of the duodenum were unremarkable. 2. 20 F PEG tube placed successfully PLAN: - TF per major assembly lineman recommendations - Okay to discharge from GI standpoint - Supportive care - Further recommendations to follow based on results of above Patient seen and examined by Dr. Whitmore and myself and this note is written on his behalf (Emilee Lovett) Physician Comments As above. Stable from GI point of view for discharge. (Tegan Whitmore MD) Emilee Lovett Oct 06, 2017 16:48 Tegan Whitmore MD Oct 06, 2017 20:34
[2017-10-06] MEDS: ACETAMINOPHEN/HYDROcodone 325 MG/5 MG TAB PEG PRN (20:15)
[2017-10-07] VITALS (9 sets, daily range): BP systolic 120–135; BP diastolic 67–82; PULSE 78–96; RESP 16–20; TEMP 98.5–98.6; O2SAT 95–100
[2017-10-07] MEDS: HYDROmorphone HCL PF 0.5 MG/0.5 ML SYRINGE IV PUSH PRN (00:30)
[2017-10-07] MEDS: CHLORHEXIDINE GLUCONATE 2 % 1 PACK (2 CLOTHS) TOP SCH (02:12)
[2017-10-07] MEDS: ACETAMINOPHEN/HYDROcodone 325 MG/5 MG TAB PEG PRN ×2 (03:26→09:54)
[2017-10-07] MEDS: RESP: ALBUTEROL 2.5 MG/IPRATROPIUM 0.5 MG NEB (SCH) INH ×2 (03:49→07:49)
[2017-10-07] MEDS: SODIUM CHLOR 0.9% 1000 ML INJ 1,000 ML IV SCH (05:00)
[2017-10-07] MEDS: INSULIN NovoLIN REGULAR SUPPLEMENTAL SCALE SQ SCH ×3 (05:38→12:00)
[2017-10-07 05:57] LABS: HEMATOCRIT 30.5 % (39.0-51.0); MEAN CELL VOLUME 87.2 FL (80.0-100.0); MEAN CORPUSCULAR HEMOGLOBIN 30.5 PG (27.0-34.0); PLATELET COUNT 140 TH/MM3 (150-450); RED BLOOD COUNT 3.49 MIL/MM3 (4.50-5.90); RED CELL DISTRIBUTION WIDTH 13.7 % (11.6-17.2); REVIEW FLAG FINAL; WHITE BLOOD COUNT 10.3 TH/MM3 (4.0-11.0)
[2017-10-07 06:17] LABS: BICARBONATE 21.2 MEQ/L (21.0-32.0); POTASSIUM 3.3 MEQ/L (3.5-5.1)
[2017-10-07] MEDS: CHLORHEXIDINE 0.12% (ORAL KIT) 15 ML CUP MT SCH (08:00)
[2017-10-07] MEDS: FAMOTIDINE 20 MG/2 ML VIAL IV PUSH SCH (08:16)
[2017-10-07] MEDS: POTASSIUM CHLOR 20 MEQ PREMIX 100 ML IV PRN ×2 (08:16→10:37)
--- NOTE | 2017-10-07 09:37 | PD.ONC.PN ---
Subjective Subjective Remarks Afebrile overnight. Resting in bed. c/o pain at PEG tube site, present since PEG tube was placed. Objective Data Date Time Temp Pulse Resp B/P (MAP) Pulse Ox O2 Delivery O2 Flow Rate FiO2 10/07/17 07:50 100 T-piece 5.00 28 10/07/17 06:00 78 10/07/17 04:00 98.5 96 18 126/74 (91) 99 10/07/17 02:00 95 10/07/17 00:00 98.5 92 20 120/67 (84) 95 10/06/17 22:50 93 Trach Collar 28 10/06/17 22:00 95 10/06/17 20:00 Trach Collar 28 10/06/17 20:00 98.5 94 20 134/81 (98) 99 10/06/17 18:00 84 10/06/17 16:00 84 10/06/17 16:00 99.0 84 18 138/82 (100) 100 10/06/17 14:00 84 10/06/17 13:00 98.9 96 18 163/78 (106) 99 10/06/17 12:00 84 10/06/17 10:00 84 10/07/17 10/07/17 10/07/17 07:00 15:00 23:00 Intake Total 950 ml Output Total 1000 ml Balance -50 ml Result Diagram: 10/07/17 0413 10/07/17 0413 Laboratory Results Laboratory Tests Test 10/07/17 04:13 White Blood Count 10.3 TH/MM3 Red Blood Count 3.49 MIL/MM3 Hemoglobin 10.7 GM/DL Hematocrit 30.5 % Mean Corpuscular Volume 87.2 FL Mean Corpuscular Hemoglobin 30.5 PG Mean Corpuscular Hemoglobin Concent 35.0 % Red Cell Distribution Width 13.7 % Platelet Count 140 TH/MM3 Mean Platelet Volume 7.0 FL Blood Urea Nitrogen 6 MG/DL Creatinine 0.46 MG/DL Random Glucose 96 MG/DL Calcium Level 8.4 MG/DL Sodium Level 134 MEQ/L Potassium Level 3.3 MEQ/L Chloride Level 101 MEQ/L Carbon Dioxide Level 21.2 MEQ/L Anion Gap 12 MEQ/L Estimat Glomerular Filtration Rate 187 ML/MIN Administered Medications Medications (Trade) Dose Ordered Sig/Mae Route PRN Reason Start Time Stop Time Status Last Admin Dose Admin Chlorhexidine Gluconate (Peridex 0.12% Liq) 15 ml BID@08,20 MT 10/03/17 20:00 10/07/17 08:00 Potassium Chloride 100 ml @ 50 mls/hr Q2H PRN IV For Potassium 2.8 - 3.2 mEq/L 10/03/17 19:45 10/05/17 16:57 Potassium Chloride 100 ml @ 50 mls/hr Q2H PRN IV For Potassium 3.3 - 3.5 mEq/L 10/03/17 19:45 10/07/17 08:16 Albuterol/ Ipratropium (Duoneb Neb) 1 ampule Q6HR NEB INH 10/03/17 22:00 10/07/17 07:49 Sodium Chloride 1,000 ml @ 84 mls/hr [id number] IV 10/03/17 20:00 10/07/17 05:00 Famotidine (Pepcid Inj) 20 mg Q12HR IV PUSH 10/03/17 21:00 10/07/17 08:16 Ondansetron HCl (Zofran Inj) 4 mg Q6H PRN IV PUSH NAUSEA OR VOMITING 10/03/17 19:45 10/05/17 22:49 Hydromorphone HCl (Dilaudid Pf Inj) 0.5 mg Q4H PRN IV PUSH BREAKTHROUGH PAIN 10/03/17 19:45 10/07/17 00:30 Temazepam (Restoril) 15 mg HS PRN PO insomnia 10/04/17 20:45 10/06/17 02:36 Acetaminophen/ Hydrocodone Bitart ([place] 5-325 Mg) 1 tab Q6H PRN PEG PAIN 5-10 10/06/17 11:30 10/07/17 03:26 Objective Remarks GENERAL: chronically ill, male supine in bed SKIN: Warm and dry. HEAD: Normocephalic. EYES: No scleral icterus. No injection or drainage. NECK: Supple, trachea midline. trach in place, on room air. CARDIOVASCULAR: Regular rate and rhythm RESPIRATORY: anterior beckett clear. GASTROINTESTINAL: Abdomen soft, non-tender, nondistended. PEG tube in place, receiving tube feeds EXTREMITIES: No cyanosis NEUROLOGICAL: awake and alert, normal speech. Assessment/Plan Problem List: (1) Neck mass ICD Codes: R22.1 - Localized swelling, mass and lump, neck Status: Acute Plan: --will need biopsy either of the right posterior pharyngeal mass or the right neck mass. --will need to complete staging evaluation that is to rule out distant metastatic disease. CT chest or CT PET scan on outpatient basis would be appropriate. --may complete his workup as an outpatient. (2) Thrombocytopenia ICD Codes: D69.6 - Thrombocytopenia, unspecified Plan: d/t history of alcohol abuse, liver cirrhosis and splenomegaly. Assessment 62y/o male with head and neck mass associated with right neck adenopathy. h/o Alcohol abuse, alcoholic liver disease, history of life-threatening hyponatremia, acute renal failure, osmotic myelinolysis, C. diff colitis, oral candidiasis, bilateral thalamic stroke, seizure disorder, depression, insomnia. h/o PEG tube placement, tracheostomy, tracheostomy redo. Hernia repair. Plan 1. ok to complete workup outpatient 2. follow up in clinic Attending Statement Pt DC before could be seen. Discussed w/ primary team, pathology department indeed have specimen from 10/04/17, no orders, which they will get from ENT. Therefore pt could be DC home w/ FU up as outpt. Pending final pathology report confirming cancer. Arielle Osullivan Oct 07, 2017 09:37 Demetrice Dunn MD Oct 07, 2017 18:32
--- NOTE | 2017-10-07 10:38 | HHI.PR ---
Subjective Remarks in no acute distress. no new complaints. reported constipation. d/w the RN and no acute issues over night. Objective Vitals Vital Signs Date Time Temp Pulse Resp B/P (MAP) Pulse Ox O2 Delivery O2 Flow Rate FiO2 10/07/17 07:50 100 T-piece 5.00 28 10/07/17 07:00 Trach Collar 28 10/07/17 06:00 78 10/07/17 04:00 98.5 96 18 126/74 (91) 99 10/07/17 02:00 95 10/07/17 00:00 98.5 92 20 120/67 (84) 95 10/06/17 22:50 93 Trach Collar 28 10/06/17 22:00 95 10/06/17 20:00 Trach Collar 28 10/06/17 20:00 98.5 94 20 134/81 (98) 99 10/06/17 18:00 84 10/06/17 16:00 84 10/06/17 16:00 99.0 84 18 138/82 (100) 100 10/06/17 14:00 84 10/06/17 13:00 98.9 96 18 163/78 (106) 99 10/06/17 12:00 84 I/O 10/06/17 10/06/17 10/06/17 10/07/17 10/07/17 10/07/17 07:00 15:00 23:00 07:00 15:00 23:00 Intake Total 1051 ml 1000 ml 950 ml Output Total 500 ml 1200 ml 1000 ml Balance 551 ml -200 ml -50 ml IV Total 1051 ml 1000 ml 950 ml Output Urine Total 500 ml 1200 ml 1000 ml Stool Total 0 ml # Bowel Movements 0 0 Result Diagram: 10/07/17 0413 10/07/17 0413 Imaging Last Impressions Neck CT 10/03/17 1131 Signed Impressions: Service Date/Time: October 12:03 - CONCLUSION: Large right jugulodigastric mass suggestive of necrotic lymphadenopathy and 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 Casper Clifton MD Chest X-Ray 10/03/17 1122 Signed Impressions: Service Date/Time: October 11:41 - CONCLUSION: No evidence of acute cardiopulmonary disease. Casper Clifton MD Objective Remarks GENERAL: This is a well-nourished, well-developed patient, in no apparent distress. Neck; trach in place. CARDIOVASCULAR: Regular rate and regular rhythm without murmurs, gallops, or rubs. RESPIRATORY: Clear to auscultation. Breath sounds equal bilaterally. No wheezes , rales, or rhonchi. GASTROINTESTINAL: Abdomen soft, non-tender, nondistended. Normal, active bowel sounds MUSCULOSKELETAL: Extremities without clubbing, cyanosis, or edema. NEURO: Alert & Oriented x4 to person, place, time, situation. Moves all ext x4 Procedures 10/03 - trach 10/04 - PEG Medications and IVs Current Medications Ampicillin Sodium/ Sulbactam Sodium (Unasyn Inj) 3 gm ONCE ONCE IM Last administered on 10/03/17 11:57; Start 10/03/17 at 11:30; Stop 10/03/17 at 11:31 ; Status DC Dexamethasone Sodium Phosphate (Decadron Inj) 10 mg ONCE ONCE IV PUSH Last administered on 10/03/17 11:56; Start 10/03/17 at 11:30; Stop 10/03/17 at 11:31 ; Status DC Iohexol (Omnipaque 350 Inj) 76 ml STK-MED ONCE IVCONTRAST Last administered on 10/03/17 11:07; Start 10/03/17 at 11:07; Stop 10/03/17 at 12:05; Status DC Gelatin (Gelfoam 100 Top) 1 foam STK-MED ONCE .ROUTE ; Start 10/03/17 at 18:10; Stop 10/03/17 at 18:11; Status DC Lidocaine/ Epinephrine (Xylocaine-Epi 1%-1:100,000 Inj) 20 ml STK-MED ONCE .ROUTE ; Start 10/03/17 at 18:11; Stop 10/03/17 at 18:12; Status DC Chlorhexidine Gluconate (Peridex 0.12% Liq) 15 ml BID@08,20 MT Last administered on 10/07/17 08:00; Start 10/03/17 at 20:00 Magnesium Oxide (Mag-Ox) 800 mg UNSCH PRN PO For Magnesium 1.2 - 1.6 mg/dL; Start 10/03/17 at 19:45 Magnesium Sulfate 4 gm/Sodium Chloride 100 ml @ 50 mls/hr UNSCH PRN IV For Magnesium 0.9 - 1.1 mg/dL; Start 10/03/17 at 19:45 Magnesium Sulfate 2 gm/Sodium Chloride 100 ml @ 50 mls/hr UNSCH PRN IV For Magnesium 1.2 - 1.6 mg/dL; Start 10/03/17 at 19:45 Potassium Chloride 100 ml @ 50 mls/hr Q2H PRN IV For Potassium 2.8 - 3.2 mEq/ L Last administered on 10/05/17 16:57; Start 10/03/17 at 19:45 Potassium Chloride 100 ml @ 50 mls/hr Q2H PRN IV For Potassium 3.3 - 3.5 mEq/ L Last administered on 10/07/17 08:16; Start 10/03/17 at 19:45 Potassium Chloride 100 ml @ 50 mls/hr Q2H PRN IV For Potassium 2.8 - 3.2 mEq/L ; Start 10/03/17 at 19:45 Potassium Chloride 100 ml @ 25 mls/hr UNSCH PRN IV For Potassium 3.3 - 3.5 mEq /L; Start 10/03/17 at 19:45 Potassium Phosphate (K-Phos) 2,000 mg Q4H PRN PO For Phosphorus < 2.5 mg/dL; Start 10/03/17 at 19:45 Potassium Phosphate (K-Phos) 2,000 mg UNSCH PRN PO/TUBE SEE LABEL COMMENTS; Start 10/03/17 at 19:45 Potassium Phosphate 30 mmol/ Sodium Chloride 260 ml @ 42 mls/hr UNSCH PRN IV SEE LABEL COMMENTS; Start 10/03/17 at 19:45 Sodium Phosphate 30 mmol/Sodium Chloride 250 ml @ 42 mls/hr UNSCH PRN IV For Phosphorus < 2.5 mg/dL; Start 10/03/17 at 19:45 Dextrose (D50w (Vial) Inj) 25 ml UNSCH PRN IV PUSH HYPOGLYCEMIA-SEE COMMENTS; Start 10/03/17 at 19:45 Insulin Human Regular (NovoLIN R SUPPLEMENTAL SCALE) 1 Q6HR SQ ; Start 10/04/17 at 00:00 Albuterol/ Ipratropium (Duoneb Neb) 1 ampule Q6HR NEB INH Last administered on 10/07/17 07:49; Start 10/03/17 at 22:00 Albuterol/ Ipratropium (Duoneb Neb) 1 ampule Q2HR NEB PRN INH WHEEZING; Start 10/03/17 at 19:45 Sodium Chloride 1,000 ml @ 84 mls/hr [id number] IV Last administered on 05:00; Start 10/03/17 at 20:00 Famotidine (Pepcid Inj) 20 mg Q12HR IV PUSH Last administered on 10/07/17 08: 16; Start 10/03/17 at 21:00 Ondansetron HCl (Zofran Inj) 4 mg Q6H PRN IV PUSH NAUSEA OR VOMITING Last administered on 10/05/17 22:49; Start 10/03/17 at 19:45 Heparin Sodium (Porcine) (Heparin Inj) 5,000 units Q8H SQ ; Start 10/03/17 at 22 :00; Status Future Hold Miscellaneous Information 1 [id number] XX ; Start 10/03/17 at 19:45 Chlorhexidine Gluconate (Chlorhexidine 2% Cloth) 3 pack Taper DAILY@04 TOP ; Start 10/04/17 at 04:00; Stop 09/30/18 at 03:59 Chlorhexidine Gluconate (Chlorhexidine 2% Cloth) 3 pack UNSCH PRN TOP HYGIENIC CARE; Start 10/03/17 at 19:45 Hydromorphone HCl (Dilaudid Pf Inj) 0.5 mg Q4H PRN IV PUSH BREAKTHROUGH PAIN Last administered on 10/07/17 00:30; Start 10/03/17 at 19:45 Miscellaneous Information ALL NURSING DEPARTME... UNSCH PRN .XX SEE LABEL COMMENTS; Start 10/03/17 at 20:00; Stop 10/04/17 at 19:59; Status DC Cefazolin Sodium 1000 mg/Sodium Chloride 100 ml @ 200 mls/hr CUST[employer]S COMPLIANCE DIRECTOR IV Last administered on 10/04/17 10:36; Start 10/03/17 at 20:30; Stop 10/06/17 at 20:29 ; Status DC Temazepam (Restoril) 15 mg HS PRN PO insomnia Last administered on 10/06/17 02 :36; Start 10/04/17 at 20:45 Promethazine HCl (Phenergan Inj) 12.5 mg ONCE ONCE IM Last administered on 04:18; Start 10/05/17 at 04:15; Stop 10/05/17 at 04:16; Status DC Acetaminophen/ Hydrocodone Bitart ([place] 5-325 Mg) 1 tab Q6H PRN PEG PAIN 5- 10 Last administered on 10/07/17 09:54; Start 10/06/17 at 11:30 A/P Problem List: (1) Head and neck lymphadenopathy ICD Code: R59.1 - Generalized enlarged lymph nodes Status: Acute (2) Head and neck malignancy ICD Code: C76.0 - Malignant neoplasm of head, face and neck (3) Neck mass ICD Code: R22.1 - Localized swelling, mass and lump, neck Status: Acute Assessment and Plan A/P Neck Mass Head and Neck Cancer - s/p trach and peg - awaiting d/c to facility - needs medical oncology follow up - needs radiation oncology follow up - needs ENT follow up mild hypokalemia; will replace constipation; laxatives as needed. Discharge Planning case management notes reviewed- awaiting discharge to nursing facility . Amber Trevizo MD Oct 07, 2017 10:38
[2017-10-07] MEDS ORDERED: MAGNESIUM HYDROXIDE SUSP 30 ML CUP PEG PRN (10:45)
--- NOTE | 2017-10-07 12:54 | HHI.PR ---
Addendum To [facility] Progress Not Reason for addendum: Additonal documentation (wrong entry.) Amber Trevizo MD Oct 07, 2017 12:54
== END 2017-10-07 17:05 | DRG 13 ==
LOC: NEPE 11:06 → NEDA 13:43 → N03B 21:10
PROVIDERS: ADMIT Internal Medicine Critical Care Medicine; ATTEND Internal Medicine
PROC: 0BJ08ZZ Inspection of Tracheobronchial Tree, Via Natural or Artificial Opening Endoscopic (ICD-10-PCS; 2017-10-03)
PROC: 0B113F4 Bypass Trachea to Cutaneous with Tracheostomy Device, Percutaneous Approach (ICD-10-PCS; principal; 2017-10-03 18:20)
PROC: 0DH63UZ Insertion of Feeding Device into Stomach, Percutaneous Approach (ICD-10-PCS; 2017-10-04)
PROC: 0WB3XZX Excision of Oral Cavity and Throat, External Approach, Diagnostic (ICD-10-PCS; 2017-10-04)
DX: C14.0 Malignant neoplasm of pharynx, unspecified (principal); D69.59 Other secondary thrombocytopenia; K70.30 Alcoholic cirrhosis of liver without ascites; R59.0 Localized enlarged lymph nodes; E87.6 Hypokalemia; G40.909 Epilepsy, unspecified, not intractable, without status epilepticus; K59.00 Constipation, unspecified; J98.8 Other specified respiratory disorders; Z86.73 Personal history of transient ischemic attack (TIA), and cerebral infarction without residual deficits
CPT/HCPCS: 70491; 71010; 80048; 80053; 81001; 82948; 83605; 85025; 85027; 85610; 85730; 87040; 87081; 87086; 87641; 87880; 88305; 88341; 88342; 93005; 94640; 94664; 96372; 96374; J1170; A7521; J0295; J0330; J0690; J1100; J2250; J2405; J2550; J3010; J3480; J7030; Q9967

== ENCOUNTER 2017-10-30 21:51 | Inpatient (IN) | payer MEDICAID ==
[~2017-10-30] VITALS: Ht 177.8 cm; Wt 66.0 kg
[~2017-10-30 21:51] MED LIST changes: -ALBU0.08 INH; +ASPI81TA16 PO; +CHOL4POW2 PO; +DIFFCHW PO; -DRON2.5 PO; -FURO20TA PO; -HEPA10003 SQ; +IPRASOL INH; +LACT10SO PO; -LACTTAB8 PO; -MSIR15 PO; -PANT20 PO; +PEPT262S PO; -POTA20TA5 PO; +REME15TA PO; -SENN1TAB PO; +THERTAB17 PO
[2017-10-30 21:57] VITALS: BP 98/56; PULSE 80; RESP 18; TEMP 99; O2SAT 97
--- NOTE | 2017-10-30 22:21 | PD ---
HPI Chief Complaint: Bleeding Time Seen by Provider: 22:19 Travel History International Travel<30 days: No Contact w/Intl Traveler<30days: No Traveled to known affect area: No History of Present Illness HPI Patient is a 62-year-old male who has laryngeal cancer. He had all of his teeth extracted top and bottom today for his radiation treatment. He said he had the surgery from 7 AM to 11 AM at [facility] and then has been bleeding ever since. He comes in with 2 gauzes rolled up inside of his mouth covered in blood. Patient is in no respiratory distress. He has a trache to collar on RA. He is on trach collar he has not ventilated. HE sleep at night with oxygen blow-by . He is coughing he has blood running down from his throat. . He is not anticoagulated. He is having pain in his mouth bilaterally and he feels the bleeding is coming from his left upper premolar area. He has not seen a dentist since the discharge from the dental clinic this afternoon. He called [facility] but no answer. He has tried to stop bleeding with biting down on gauze rolls without relief PFSH Past Medical History Cancer: No Cerebrovascular Accident: Yes Diminished Hearing: No Insomnia: Yes Neurologic: Yes (central pontine myelinolysis) Respiratory: Yes (pna, chronic resp failure) Seizures: Yes Past Surgical History Abdominal Surgery: Yes (hernia ) Neurologic Surgery: Yes (pt states brain sx) Social History Alcohol Use: No Tobacco Use: No Substance Use: No Allergies-Medications (Allergen,Severity, Reaction): Coded Allergies: peanut (Unverified Allergy, Severe, 07/16/17) Fish Containing Products (Unverified Allergy, Mild, Rash, 07/16/17) chicken derived (Unverified Allergy, Mild, Rash, 07/16/17) Reported Meds & Prescriptions Reported Meds & Active Scripts Active Duoneb (Ipratropium-Albuterol Neb) 0.5-2.5 Mg/3 Ml Neb 1 Ampule INH Q2HR NEB PRN Eq Acetaminophen (Acetaminophen) 325 Mg Tab 500 Mg PO Q6H PRN 30 Days Trazodone (Trazodone HCl) 50 Mg Tab 75 Mg PO HS 30 Days Gnp Vitamin B-1 (Thiamine HCl) 100 Mg Tab 100 Mg PO DAILY 30 Days Keppra (Levetiracetam) 500 Mg Tab 1,000 Mg PO Q12HR 30 Days Reported Remeron (Mirtazapine) 15 Mg Tab 15 Mg PO HS Pepto-Bismol Liq (Bismuth Subsalicylate) 262 Mg/15 Ml Susp 30 Ml PO Q4HR PRN Do not exceed 8 doses (240 mL or 16 tbsp) in 24 hours. Thera-M (Multiple Vitamins W/ Minerals) 1 Tab 1 Tab PO DAILY Lactulose Liq (Lactulose) 10 Gm/15 Ml Soln 45 Ml PO TID Diff-Stat (Probiotic Product) 471 Mg Cap 1 Cap PO BID Cholestyramine Light 4 Gm/Pkt Powd 4 Gm PO DAILY Mix 1 packet (4gm) in 8oz of liquid Review of Systems Except as stated in HPI: all other systems reviewed are Neg HENT: Positive: Other (gum bleed) Physical Exam Narrative GENERAL: blood oozing constantly from mouth from multiple sites AOX3 SKIN: Warm and dry. HEAD: Atraumatic. Normocephalic. EYES: Pupils equal and round. No scleral icterus. No injection or drainage. ENT: oozing blood from multpile areas of mouth from multiple extract sites all teeth missing and blood clots and irregular appearance to gum line and tissues oozing blood. NECK: Trache to RA no resp distress CARDIOVASCULAR: Regular rate and rhythm. RESPIRATORY: No accessory muscle use. Clear to auscultation. Breath sounds equal bilaterally. GASTROINTESTINAL: Abdomen soft, non-tender, nondistended. Hepatic and splenic margins not palpable. MUSCULOSKELETAL: Extremities without clubbing, cyanosis, or edema. No obvious deformities. NEUROLOGICAL: Awake and alert. No obvious cranial nerve deficits. Motor grossly within normal limits. Five out of 5 muscle strength in the arms and legs. Normal speech. PSYCHIATRIC: Appropriate mood and affect; insight and judgment normal. Data Data Last Documented VS Orders Orders Ondansetron Inj (Zofran Inj) (10/30/17 22:28) Morphine Inj (Morphine Inj) (10/30/17 22:30) Ondansetron Inj (Zofran Inj) (10/30/17 22:30) Lidocai-Epi 2%-1:100,000 Inj (Xylocaine- (10/30/17 22:30) Morphine Inj (Morphine Inj) (10/30/17 22:29) Complete Blood Count With Diff (10/30/17 23:07) Comprehensive Metabolic Panel (10/30/17 23:07) Prothrombin Time / Inr (Pt) (10/30/17 23:07) Act Partial Throm Time (Ptt) (10/30/17 23:07) Type And Screen (10/30/17 23:07) Microfib Col Hemostat Pow Pack (Avitene (10/31/17 00:45) Thrombin Top Soln (Thrombin Top Soln) (10/31/17 00:53) Consult Oral, Facial Surgery (10/31/17 ) (Hub Use Only)Inp Phy Cons/Ref (10/31/17 ) Admit To Inpatient (10/31/17 ) Vital Signs (Adult) Q4H (10/31/17 01:19) Activity Oob With Assistance (10/31/17 01:19) Child Support Specialist / Telemetry .CONTINUOUS (10/31/17 01:19) Sodium Chlor 0.9% 1000 Ml Inj (Ns 1000 M (10/31/17 01:19) Sodium Chloride 0.9% Flush (Ns Flush) (10/31/17 01:30) Sodium Chloride 0.9% Flush (Ns Flush) (10/31/17 09:00) Pt Request For Service (10/31/17 01:19) Case Management Consult (10/31/17 01:19) Naloxone Inj (Narcan Inj) (10/31/17 01:30) Inpatient Certification (10/31/17 ) Hgb & Hct (10/31/17 01:19) Hgb & Hct (10/31/17 07:19) Hgb & Hct (10/31/17 13:19) Labs Laboratory Tests Test 10/30/17 23:00 White Blood Count 11.7 TH/MM3 Red Blood Count 3.52 MIL/MM3 Hemoglobin 10.2 GM/DL Hematocrit 30.4 % Mean Corpuscular Volume 86.4 FL Mean Corpuscular Hemoglobin 29.0 PG Mean Corpuscular Hemoglobin Concent 33.6 % Red Cell Distribution Width 15.2 % Platelet Count 172 TH/MM3 Mean Platelet Volume 8.6 FL Neutrophils (%) (Auto) 71.3 % Lymphocytes (%) (Auto) 18.7 % Monocytes (%) (Auto) 9.0 % Eosinophils (%) (Auto) 0.6 % Basophils (%) (Auto) 0.4 % Neutrophils # (Auto) 8.3 TH/MM3 Lymphocytes # (Auto) 2.2 TH/MM3 Monocytes # (Auto) 1.1 TH/MM3 Eosinophils # (Auto) 0.1 TH/MM3 Basophils # (Auto) 0.0 TH/MM3 CBC Comment AUTO DIFF Differential Comment AUTO DIFF CONFIRMED Platelet Estimate NORMAL Platelet Morphology Comment NORMAL Red Cell Morphology Comment NORMAL Prothrombin Time 11.5 SEC Prothromb Time International Ratio 1.0 RATIO Activated Partial Thromboplast Time 22.4 SEC Blood Urea Nitrogen 14 MG/DL Creatinine 0.69 MG/DL Random Glucose 101 MG/DL Total Protein 7.6 GM/DL Albumin 3.2 GM/DL Calcium Level 9.2 MG/DL Alkaline Phosphatase 197 U/L Aspartate Amino Transf (AST/SGOT) 53 U/L Alanine Aminotransferase (ALT/SGPT) 29 U/L Total Bilirubin 0.7 MG/DL Sodium Level 134 MEQ/L Potassium Level 4.4 MEQ/L Chloride Level 98 MEQ/L Carbon Dioxide Level 29.2 MEQ/L Anion Gap 7 MEQ/L Estimat Glomerular Filtration Rate 117 ML/MIN MDM Medical Decision Making Medical Screen Exam Complete: Yes Emergency Medical Condition: Yes Differential Diagnosis post procedural complication from multiple extrractions on same day. Pt has bleeding due to excessive procedure vs caogulopathy , vs hematomas vs bone root bleed Narrative Course I immediately evaluated the patient's airway as well as his bleeding situation. He has a trach and he has no signs of having occlusion of his trach from any clots that could be forming posterior pharynx. Airway is secured him I didn't evaluate the gums. There is excessive oozing of blood from all of the areas of extraction upper right upper left upper front lower molars lower right and left and lower front. I start to compress the areas and then put lidocaine epinephrine impregnated gauze for him to bite down on does not result in any coagulation. Then used Surgicel the areas that I see losing. After multiple hours spent bedside attempting to leave the Surgicel on the areas of bruising and then reevaluate. Patient continues to bleed I finally am forced to call [facility] Dr. Mackay responds. He is very cooperative and pleasant and comes bedside. He finds there are hematomas underneath the flaps of gum tissue. He finds there are multiple areas of oozing blood from all the extraction and bone bleeding as well. He does extensive debridement here in the ER and then admits the patient to the ICU. Patient tolerates the procedure and bleeding is controlled. Respiratory has come to suction his trach during the time is in the ER I send labs to evaluate his coagulation profile his INR is 1.0. H&H is 10/30. Critical Care Narrative I spend over 60 minutes of critical care time trying to control the hemorrhaging from his gums. With injections of epi and Surgicel application multiple times and multiple re-evals , I also constantly re-eval pts airway and resp status Diagnosis Primary Impression: Gum hemorrhage Admitting Information Admitting Physician Requests: Admit Scripts [oxyCODONE LIQ] 20 MG/1 ML CONC No Conflict Check 5 MG PO Q4H Y for pain 7-10 for 7 Days Prov: Tu Bryant MD 11/01/17 Condition: Stable Eben Luu MD Oct 30, 2017 22:21
[2017-10-30] MEDS ORDERED: ONDANSETRON HCL 4 MG/2 ML VIAL ONE (22:28)
[2017-10-30] MEDS ORDERED: MORPHINE SULFATE 2 MG/ML INJ ONE (22:29)
[2017-10-30] MEDS ORDERED: LIDOCAINE 2%/EPINEPHrine 1:100,000 30ML MDV INFIL ONE (22:30)
[2017-10-30] MEDS ORDERED: MORPHINE SULFATE 4 MG/ML INJ IM ONE (22:30)
[2017-10-30] MEDS ORDERED: ONDANSETRON HCL 4 MG/2 ML VIAL IV PUSH ONE (22:30)
[2017-10-30 23:24] VITALS: O2SAT 98
[2017-10-30 23:37] LABS: AUTOMATED NEUTROPHIL # 8.3 TH/MM3 (1.8-7.7); BASOPHIL % 0.4 % (0.0-2.0); EOSINOPHIL # 0.1 TH/MM3 (0-0.4); EOSINOPHIL % 0.6 % (0.0-4.0); HEMATOCRIT 30.4 % (39.0-51.0); LYMPH % 18.7 % (9.0-44.0); LYMPHOCYTE # 2.2 TH/MM3 (1.0-4.8); MEAN CELL VOLUME 86.4 FL (80.0-100.0); MEAN CORPUSCULAR HGB CONC 33.6 % (32.0-36.0); NEUT % 71.3 % (16.0-70.0); PLATELET COUNT 172 TH/MM3 (150-450); RED BLOOD COUNT 3.52 MIL/MM3 (4.50-5.90); RED CELL DISTRIBUTION WIDTH 15.2 % (11.6-17.2); WHITE BLOOD COUNT 11.7 TH/MM3 (4.0-11.0)
[2017-10-30 23:40] LABS: APTT (PATIENT) 22.4 SEC (24.3-30.1); PROTHROMBIN TIME - PATIENT 11.5 SEC (9.8-11.6)
[2017-10-30 23:47] LABS: HEMO FLAGS AUTO DIFF
[2017-10-30 23:49] LABS: ALT (GPT) 29 U/L (12-78)
[2017-10-30 23:52] LABS: ALKALINE PHOSPHATASE 197 U/L (45-117); TOTAL BILIRUBIN ADULT 0.7 MG/DL (0.2-1.0)
[2017-10-30 23:54] LABS: ANION GAP 7 MEQ/L (5-15); AST (GOT) 53 U/L (15-37); BICARBONATE 29.2 MEQ/L (21.0-32.0); BLOOD UREA NITROGEN 14 MG/DL (7-18); CHLORIDE 98 MEQ/L (98-107); GLOMERULAR FILTRATION RATE 117 ML/MIN (>89); POTASSIUM 4.4 MEQ/L (3.5-5.1); SODIUM (NA) 134 MEQ/L (136-145)
[2017-10-31] VITALS (16 sets, daily range): BP systolic 97–181; BP diastolic 51–75; PULSE 57–112; RESP 15–25; TEMP 97.8–98.6; O2SAT 93–100
[2017-10-31 00:15] LABS: PLATELET ESTIMATE SMEAR NORMAL (NORMAL)
[2017-10-31 00:16] LABS: PLATELET MORPHOLOGY NORMAL (NORMAL); SCAN/DIFF AUTO DIFF CONFIRMED
[2017-10-31] MEDS ORDERED: MICROFIBRILLAR COLLAGEN HEMOSTAT 1 GM PKT TOPICAL ONE (00:45)
[2017-10-31] MEDS ORDERED: THROMBIN (TOPICAL) 5,000 UNIT VIAL ONE (00:53)
[2017-10-31] MEDS ORDERED: SODIUM CHLOR 0.9% 1000 ML INJ 1,000 ML IV SCH (01:19)
[2017-10-31] MEDS ORDERED: SODIUM CHLORIDE 0.9% FLUSH 10 ML FLUSH IV FLUSH PRN ×2 (01:30→03:00)
[2017-10-31] MEDS ORDERED: NALOXONE HCL 0.4 MG/ML AMP IV PUSH PRN (01:30)
[2017-10-31] MEDS ORDERED: LIDOCAINE HCL 1% PF 30 ML VIAL ONE (02:19)
[2017-10-31] MEDS ORDERED: SENNOSIDES 8.6 MG TAB PO PRN (03:00)
[2017-10-31] MEDS ORDERED: MISCELLANEOUS NURSING INFORMATION XX SCH (03:00)
[2017-10-31] MEDS ORDERED: CHLORHEXIDINE GLUCONATE 2 % 1 PACK (2 CLOTHS) TOP PRN (03:00)
[2017-10-31] MEDS ORDERED: LACTULOSE SYRUP 20 GM/30 ML CUP PO PRN (03:00)
[2017-10-31] MEDS ORDERED: BISMUTH SUBSALICYLATE 240 ML BTL PO PRN (03:00)
[2017-10-31] MEDS ORDERED: RESP: ALBUTEROL 2.5 MG/IPRATROPIUM 0.5 MG NEB (PRN) NEB (03:00)
[2017-10-31] MEDS ORDERED: RESP: ALBUTEROL 2.5 MG/IPRATROPIUM 0.5 MG NEB (PRN) INH (03:00)
[2017-10-31] MEDS ORDERED: BISACODYL 10 MG SUPP RECTAL PRN (03:00)
[2017-10-31] MEDS ORDERED: ONDANSETRON HCL 4 MG/2 ML VIAL IV PUSH PRN (03:00)
[2017-10-31] MEDS ORDERED: MAGNESIUM HYDROXIDE SUSP 30 ML CUP PO PRN (03:00)
--- NOTE | 2017-10-31 03:07 | HHI.PR ---
Immediate Post Op Note Procedure Date: Oct 31, 2017 Pre Op Diagnosis: non stop bleeding s/p full mouth extractions 10-30-17 - Post Op Diagnosis: camilo Surgeon: Jamie Mackay Assembler Engine(s): neurosurgical nurse practitioner from [facility]'s nurses Procedure: removal of hematoma maxillary extraction sites, and control/stop bleeding examination of extraction sites Complications: none Anesthesia: Local (1% lidocaine with 1:100, 000 epi approx 8 cc) Drains: None Patient to: ISC Patient Condition: Fair Date/Time of Procedure: SEE SURGICAL CARE RECORD Jamie Mackay DMD Oct 31, 2017 03:07
[2017-10-31] MEDS ORDERED: ACETAMINOPHEN 500 MG CPLT PO PRN (03:15)
--- NOTE | 2017-10-31 03:20 | HHI.HP ---
HPI Service Critical Care Medicine Primary Care Physician Unknown Admission Diagnosis uncontrolled bleeding post operative complication Diagnosis: Travel History International Travel<30 Days: No Contact w/Intl Traveler <30 Da: No Traveled to Known Affected Are: No History of Present Illness 62-year-old very pleasant gentleman who has laryngeal cancer he had all of his teeth extracted top and bottom today prior his chemotherapy radiation treatment. He said he had the surgery from 7 AM to 11 AM and then has been bleeding ever since. He came in with 2 gauzes rolled up inside of his mouth covered in blood. Patient is in no respiratory distress since he has a trach. He uses a just trach collar. He was coughing in the emergency department as he had blood running down his throat. He underwent extensive work done by [facility] with a suture and cleaning of the wounds. His bleeding has stopped however he is having pain in his mouth bilaterally. After the hemostasis was achieved the [facility] physician requested patient to be admitted to ICU overnight. Review of Systems ROS Unobtainable patient has a mouth packed with 4 x 4's and is trached Past Family Social History Allergies: Coded Allergies: peanut (Unverified Allergy, Severe, 07/16/17) Fish Containing Products (Unverified Allergy, Mild, Rash, 07/16/17) chicken derived (Unverified Allergy, Mild, Rash, 07/16/17) *MDRO Multi-Drug Resistant Organism (Verified Adverse Reaction, Unknown, ) MRSA PCR screen POSITIVE - 03/02/17 MDR Acinetobacter (sputum) - 03/25/17 & 04/29/17, (urine) - 06/15/17 Past Medical History Head and neck cancer Remote History of Alcohol abuse, Alcoholic liver disease, History of life-threatening hyponatremia, Renal failure Osmotic myelinolysis, C. diff colitis, Oral candidiasis, Bilateral thalamic stroke, Seizure disorder, Depression, Insomnia. Dysphagia with PEG tube placement Past Surgical History PEG tube placement, tracheostomy, tracheostomy redo. Hernia repair. Reported Medications Reported Meds & Active Scripts Active Duoneb (Ipratropium-Albuterol Neb) 0.5-2.5 Mg/3 Ml Neb 1 Ampule INH Q2HR NEB PRN Eq Acetaminophen (Acetaminophen) 325 Mg Tab 500 Mg PO Q6H PRN 30 Days Trazodone (Trazodone HCl) 50 Mg Tab 75 Mg PO HS 30 Days Gnp Vitamin B-1 (Thiamine HCl) 100 Mg Tab 100 Mg PO DAILY 30 Days Keppra (Levetiracetam) 500 Mg Tab 1,000 Mg PO Q12HR 30 Days Reported Remeron (Mirtazapine) 15 Mg Tab 15 Mg PO HS Pepto-Bismol Liq (Bismuth Subsalicylate) 262 Mg/15 Ml Susp 30 Ml PO Q4HR PRN Do not exceed 8 doses (240 mL or 16 tbsp) in 24 hours. Thera-M (Multiple Vitamins W/ Minerals) 1 Tab 1 Tab PO DAILY Lactulose Liq (Lactulose) 10 Gm/15 Ml Soln 45 Ml PO TID Diff-Stat (Probiotic Product) 471 Mg Cap 1 Cap PO BID Cholestyramine Light 4 Gm/Pkt Powd 4 Gm PO DAILY Mix 1 packet (4gm) in 8oz of liquid Aspirin Adult Low Strength (Aspirin) 81 Mg Tabdr 81 Mg PO DAILY Active Ordered Medications Current Medications Medications (Trade) Dose Ordered Sig/Mae Route PRN Reason Start Time Stop Time Status Last Admin Dose Admin Sodium Chloride 1,000 ml @ 100 mls/hr Q10H IV 10/31/17 01:19 Sodium Chloride (NS Flush) 2 ml UNSCH PRN IV FLUSH FLUSH AFTER USING IV ACCESS 10/31/17 01:30 Sodium Chloride (NS Flush) 2 ml BID IV FLUSH 10/31/17 09:00 Naloxone HCl (Narcan Inj) 0.4 mg UNSCH PRN IV PUSH SEE LABEL COMMENTS 10/31/17 01:30 Acetaminophen (Tylenol) 500 mg Q6H PRN PO FEVER 10/31/17 03:00 UNV Bismuth Subsalicylate (Pepto-Bismol Liq) 30 ml Q4HR PRN PO UPSET STOMACH 10/31/17 03:00 Cholestyramine Resin (Questran Light Pkt) 4 gm DAILY PO 10/31/17 09:00 Albuterol/ Ipratropium (Duoneb Neb) 1 ampule Q2HR NEB PRN NEB WHEEZING 10/31/17 03:00 Lactulose (Lactulose Liq) 45 ml TID PO 10/31/17 09:00 Levetriacetam (Keppra) 1,000 mg Q12HR PO 10/31/17 09:00 Mirtazapine (Remeron) 15 mg HS PO 10/31/17 21:00 Multivitamins/ Minerals Therapeutic (Theragran M Tab) 1 tab DAILY PO 10/31/17 09:00 Thiamine HCl (Vitamin B1) 100 mg DAILY PO 10/31/17 09:00 Trazodone HCl (Desyrel) 75 mg HS PO 10/31/17 21:00 UNV Non-Formulary Medication 1 cap BID PO 10/31/17 09:00 UNV Hydromorphone HCl (Dilaudid Pf Inj) 0.5 mg Q4H PRN IV PUSH pain 4-09/1010/31/17 03:00 UNV Family History No family history significant of early coronary artery disease or cancer Social History Alcohol Use: Remote Tobacco Use: No Substance Use: No Physical Exam Vital Signs Vital Signs Date Time Temp Pulse Resp B/P (MAP) Pulse Ox O2 Delivery O2 Flow Rate FiO2 10/31/17 01:17 99 20 97/51 (66) 99 Trach Collar 10/30/17 23:24 98 Trach Collar 28 10/30/17 21:57 99.0 80 18 98/56 (70) 97 Physical Exam GENERAL: Cachectic sick ill appearing male SKIN: Warm and dry. HEAD: Normocephalic. Status post dental extraction and bleeding of the gums, now packed with gauze EYES: No scleral icterus. No injection or drainage. NECK: Supple, trachea midline. No JVD or lymphadenopathy. Tracheostomy in midline without signs of infection or inflammation CARDIOVASCULAR: Regular rate and rhythm without murmurs, gallops, or rubs. RESPIRATORY: Breath sounds equal bilaterally. No accessory muscle use. GASTROINTESTINAL: Abdomen soft, non-tender, nondistended. PEG tube MUSCULOSKELETAL: No cyanosis, or edema. BACK: Nontender without obvious deformity. NEURO EXAM: GCS: M 6 V T E 4 Mental Status: The patient is alert and oriented following commands Cranial Nerves: Pupils are round, reactive to light. Reflexes: Biceps, patellar, and Achilles are 2/4 bilaterally. No clonus. Laboratory Laboratory Tests Test 10/30/17 23:00 White Blood Count 11.7 Red Blood Count 3.52 Hemoglobin 10.2 Hematocrit 30.4 Mean Corpuscular Volume 86.4 Mean Corpuscular Hemoglobin 29.0 Mean Corpuscular Hemoglobin Concent 33.6 Red Cell Distribution Width 15.2 Platelet Count 172 Mean Platelet Volume 8.6 Neutrophils (%) (Auto) 71.3 Lymphocytes (%) (Auto) 18.7 Monocytes (%) (Auto) 9.0 Eosinophils (%) (Auto) 0.6 Basophils (%) (Auto) 0.4 Neutrophils # (Auto) 8.3 Lymphocytes # (Auto) 2.2 Monocytes # (Auto) 1.1 Eosinophils # (Auto) 0.1 Basophils # (Auto) 0.0 CBC Comment AUTO DIFF Differential Comment AUTO DIFF CONFIRMED Platelet Estimate NORMAL Platelet Morphology Comment NORMAL Red Cell Morphology Comment NORMAL Prothrombin Time 11.5 Prothromb Time International Ratio 1.0 Activated Partial Thromboplast Time 22.4 Blood Urea Nitrogen 14 Creatinine 0.69 Random Glucose 101 Total Protein 7.6 Albumin 3.2 Calcium Level 9.2 Alkaline Phosphatase 197 Aspartate Amino Transf (AST/SGOT) 53 Alanine Aminotransferase (ALT/SGPT) 29 Total Bilirubin 0.7 Sodium Level 134 Potassium Level 4.4 Chloride Level 98 Carbon Dioxide Level 29.2 Anion Gap 7 Estimat Glomerular Filtration Rate 117 Result Diagram: 10/30/17 2300 10/30/17 230 Caprini VTE Risk Assessment Caprini VTE Risk Assessment: Mod/High Risk (score >= 2) VTE Pharm Contraindication: Hemorrhage Caprini Risk Assessment Model Point Value = 1 Point Value = 2 Point Value = 3 Point Value = 5 Age 41-60 Minor surgery BMI > 25 kg/m2 Swollen legs Varicose veins or History of unexplained or recurrent spontaneous Oral contraceptives or hormone replacement Sepsis (< 1 month) Serious lung disease, including pneumonia (< 1 month) Abnormal pulmonary function Acute myocardial infarction Congestive heart failure (< 1 month) History of inflammatory bowel disease Medical patient at bed rest Age 61-74 Arthroscopic surgery Major open surgery (> 45 min) Laparoscopic surgery (> 45 min) Malignancy Confined to bed (> 72 hours) Immobilizing plaster cast Central venous access Age >= 75 History of VTE Family history of VTE Factor V Leiden Prothrombin [id number] Lupus anticoagulant Anticardiolipin antibodies Elevated serum homocysteine Heparin-induced thrombocytopenia Other congenital or acquired thrombophilia Stroke (< 1 month) Elective arthroplasty Hip, pelvis, or leg fracture Acute spinal cord injury (< 1 month) Prophylaxis Regimen Total Risk Factor Score Risk Level Prophylaxis Regimen 0-1 Low Early ambulation 2 Moderate Order ONE of the following: *Sequential Compression Device (SCD) *Heparin 5000 units SQ BID 3-4 Higher Order ONE of the following medications: *Heparin 5000 units SQ TID *Enoxaparin/Lovenox 40 mg SQ daily (WT < 150 kg, CrCl > 30 mL/min) *Enoxaparin/Lovenox 30 mg SQ daily (WT < 150 kg, CrCl > 10-29 mL/min) *Enoxaparin/Lovenox 30 mg SQ BID (WT < 150 kg, CrCl > 30 mL/min) AND/OR *Sequential Compression Device (SCD) 5 or more Highest Order ONE of the following medications: *Heparin 5000 units SQ TID (Preferred with Epidurals) *Enoxaparin/Lovenox 40 mg SQ daily (WT < 150 kg, CrCl > 30 mL/min) *Enoxaparin/Lovenox 30 mg SQ daily (WT < 150 kg, CrCl > 10-29 mL/min) *Enoxaparin/Lovenox 30 mg SQ BID (WT < 150 kg, CrCl > 30 mL/min) AND *Sequential Compression Device (SCD) Assessment and Plan Assessment and Plan Uncontrolled bleeding after dental extractions - Coagulation profile and H&H stable - Monitor labs - Status post OMFS repair - Admit to ICU Head and neck mass - Outpatient chemotherapy and radiation per oncology Insomnia - Trazodone Anemia - Hemorrhagic anemia - Monitor H&H - Transfuse for hemoglobin less than 7 Seizure disorder - Keppra DVT GI prophylaxis - Teds SCDs - No pharmacological DVT prophylaxis due to uncontrolled bleeding - Pepcid Critical Care: The total critical care time was 35 minutes. Time to perform other separately billable procedures was not included in the critical care time. Joce Lamas MD Oct 31, 2017 03:20
[2017-10-31] MEDS: RESP: ALBUTEROL 2.5 MG/IPRATROPIUM 0.5 MG NEB (SCH) INH ×4 (03:26→20:06)
[2017-10-31] MEDS: SODIUM CHLOR 0.9% 1000 ML INJ 1,000 ML IV SCH ×4 (03:51→16:00)
[2017-10-31] MEDS: HYDROmorphone HCL PF 0.5 MG/0.5 ML SYRINGE IV PUSH PRN ×5 (03:52→20:54)
[2017-10-31] MEDS: CHLORHEXIDINE GLUCONATE 2 % 1 PACK (2 CLOTHS) TOP SCH (04:00)
[2017-10-31 04:07] LABS: HEMATOCRIT 27.8 % (39.0-51.0); REVIEW FLAG FINAL
--- NOTE | 2017-10-31 05:24 | MB ---
cc: BLANE MACKAY DMD DATE OF CONSULTATION October 31, 2017 REASON FOR CONSULTATION Bleeding status post extraction of teeth earlier today. HISTORY OF PRESENT ILLNESS This is a 62-year-old male who has trache secondary to his laryngeal cancer. The patient had all of his maxillary and mandibular teeth extracted prior to radiation earlier today by [facility]. He reports that he was there for several hours undergoing the procedure and left a 11 o'clock. It never stopped oozing and just kept on bleeding, not even controlled by gauze. He was unable to contact the dentist at [facility] in [place]. I have seen and examined the patient at bedside in the ED. He is alert, awake and oriented, in no acute distress. His trache is stable. PAST MEDICAL HISTORY 1. Laryngeal cancer. 2. History of chronic respiratory failure. 3. Per report, central pontine myelinolysis versus neurological dysfunction. PAST SURGICAL HISTORY 1. Neurological surgery. 2. Hernia surgery. SOCIAL HISTORY Denies any alcohol or tobacco. ALLERGIES As per report - PEANUTS. FISH. CHICKEN. HISTORY MRSA. MEDICATIONS 1. DuoNeb. 2. Trazodone. 3. Keppra. 4. Acetaminophen. 5. Remeron. 6. Pepto Bismol. 7. Lactulose. 8. Cholestyramine. PHYSICAL EXAMINATION VITAL SIGNS: Temperature is 99, pulse is 99, respirations 20, blood pressure is 197/51. The patient reports history of low blood pressure but the last blood pressure of 112/62. Pulse ox is 99. FIO2 is at 28. ORAL EXAMINATION: When I came in the bleeding appeared to have slowed down. Surgicel had been applied by the ED physician who has been trying to slow down his bleeding, but there appears to be hematoma especially on the top left upper side and a small one on the right side. This side is all ecchymotic and bluish. There appears to be soft tissue trauma the whole maxillary soft tissue region/alveolus region. I do not see any sutures up there. In the lower there is no elevation of the floor of the mouth and the tongue. He does appear to be hemostatic but there are some ecchymotic areas noted in the bilateral mandible region. He does have stitches/sutures of the bottom. I did take a periosteal elevator and slowly lifted up and examined the left maxillary region and the right and the tissues was so friable that I could see the blood just try to seep right out of the extraction sockets on the sites. There appears to be a bony bleed and also a soft tissue bleed. There is soft tissue trauma that is noted on the soft tissue and also on the hard tissue on the bony alveolus. I also noted that could see the mass on the back of the throat that is cancer. LABORATORY DATA White count is 11.7 with H&H of 10.2 and 30.4 with platelets of 172. PT is 11.5, INR 1.0 with a PTT of 22.4. Sodium is 134, potassium is 4.4, chloride is 98, CO2 is 29.2, with a BUN of 14 and creatinine of 0.69 with a glucose of 101. IMPRESSION This is a 52-year-old male with history of laryngeal cancer, underwent extractions prior to radiation but I continuously bleeding, especially from the maxillary alveolus/teeth with the extraction sockets. It never stopped. The patient reports being discharged with continuous bleeding. The nurse attempted to call [facility] including off site [facility] but it goes to voice mail and no messages can be left, so I am unable to contact the dentist. PLAN The plan is for me to examine, open up site, stop the bleeding with local hemostatic measures. Please see separate dictation for the procedure. Blane Mackay DMD AUTISM TEACHER/SSB /2:49 AM /4:58 AM RUCHI
--- NOTE | 2017-10-31 07:36 | MP ---
cc: BLANE MACKAY DMD [facility], DATE OF SURGERY 10/30/2017 PREOPERATIVE DIAGNOSIS Nonstop Bleeding status post full mouth extraction on October 30, 2017. POSTOPERATIVE DIAGNOSIS Nonstop Bleeding status post full mouth extraction on October 30, 2017. PROCEDURE Removal of the hematoma maxillary extraction sites to control and stop the bleeding. Also, examination of extraction sites. ANESTHESIA Local 1% lidocaine with 1:1000 epinephrine approximately [address] Mackay TURN MACHINE OPERATOR sales office assistant from the OR, [place] and also the patient's nurses. DISPOSITION The patient tolerated the procedure well and will be sent to the ICU for observation. INDICATIONS This is a 62-year-old male who has a history of laryngeal cancer awaiting chemo/radiation and he had all his maxillary mandibular teeth extracted and economy dentures prior to radiation. It was done on 10/30/2017. But since the patient indicated that he has been there for several hours and he left 11 o'clock in the afternoon, it never stopped bleeding and is just kept on oozing. It never slowed down. He is in the ED. The ED physician, Dr. Luu tried local hemostatic efforts with Surgicel. Especially in the maxillary region, it was not successful. PROCEDURE IN DETAIL Local anesthetic was given in the maxillary vestibule. The mandibular region extraction sites at this point appeared stable. The area is hemostatic and there are sutures there. The maxillary region lifted up with a periosteal elevator and the hematoma, especially on the left maxillary region from the central incisor going posterior to the molars, the tissues are very friable, ecchymotic and enlarged. Once I lifted up the periosteal with a periosteal elevator, there were no sutures noted and blood just kept coming out oozing from all extraction sites including the soft tissue in the palatal region and the buccal region. Irrigated the sites with saline solution. Bovie cauterized all these sockets and cleaned up the sites. Also, the soft tissue around that site Bovie was used. Finally, Avitene was placed into the extraction sockets and the site was closed with 3-0 chromic suture. Attention was diverted to the maxillary right extraction sockets appears to be from the premolar to the central. Again each socket was curetted out. The flap was reflected with the periosteum. The tissues were once again friable and Bovie was used to stop the bleeding to the bone. Finally, we irrigated with saline. Avitene was placed to closed with 3-0 chromic suture. There appears to be a lot of soft tissue trauma and bony trauma/traumatic extraction. Gauze was placed. The patient bit down. Significant decrease in heme and oozing. The mandibular region appears stable at this point. We will just monitor it at this point. The patient will be sent to the ICU for observation. Blane Mackay DMD RRT/DANDY /3:02 AM /7:18 AM
[2017-10-31] MEDS: FAMOTIDINE 20 MG/2 ML VIAL IV PUSH SCH ×2 (08:39→20:02)
[2017-10-31] MEDS: SODIUM CHLORIDE 0.9% FLUSH 10 ML FLUSH IV FLUSH SCH ×2 (08:39→20:03)
[2017-10-31] MEDS: MULTIVITAMINS/MINERALS THERAPEUTIC TAB PO SCH (08:40)
[2017-10-31] MEDS: THIAMINE HCL 100 MG TAB PO SCH (08:40)
[2017-10-31] MEDS: CHOLESTYRAMINE LIGHT 4 GM PACKAGE PO SCH (08:40)
[2017-10-31] MEDS: DOCUSATE SODIUM 50 MG/SENNA 8.6 MG TAB PO SCH ×2 (08:40→20:02)
[2017-10-31] MEDS: LACTULOSE SYRUP 20 GM/30 ML CUP PO SCH ×3 (08:40→16:44)
[2017-10-31] MEDS: levETIRAcetam 500 MG TAB PO SCH ×3 (08:40→21:00)
[2017-10-31] MEDS ORDERED: SODIUM CHLORIDE 0.9% FLUSH 10 ML FLUSH IV FLUSH SCH (09:00)
[2017-10-31] MEDS ORDERED: PROBIOTIC PRODUCT PO SCH (09:00)
--- NOTE | 2017-10-31 09:54 | HHI.CCPN ---
Subjective Remarks/Hospital Course 62-year-old very pleasant gentleman who has laryngeal cancer he had all of his teeth extracted top and bottom today prior his chemotherapy radiation treatment. He said he had the surgery from 7 AM to 11 AM and then has been bleeding ever since. He came in with 2 gauzes rolled up inside of his mouth covered in blood. Patient is in no respiratory distress since he has a trach. He uses a just trach collar. He was coughing in the emergency department as he had blood running down his throat. He underwent extensive work done by [facility] with a suture and cleaning of the wounds. His bleeding has stopped however he is having pain in his mouth bilaterally. After the hemostasis was achieved the [facility] physician requested patient to be admitted to ICU overnight. Subjective 10/31: Continues to have some oozing from his oral cavity. Hemodynamically stable. Otherwise, no others acute issues. Serial hemoglobins ordered. Pain controlled with acetaminophen. Objective Vital Signs Date Time Temp Pulse Resp B/P (MAP) Pulse Ox O2 Delivery O2 Flow Rate FiO2 10/31/17 07:32 100 T-piece 28 10/31/17 06:00 59 10/31/17 05:15 98.6 15 113/63 (80) Intake and Output 10/31/17 10/31/17 11/01/17 08:00 16:00 00:00 Output Total 200 ml Balance -200 ml Result Diagram: 10/31/17 0355 10/30/17 2300 Objective Remarks GENERAL: This is a 8 year old male, critically ill currently on T piece the 8.0 Shiley tracheostomy SKIN: Warm and dry. HEAD/ears/nose and throat: Normocephalic. Status post dental extraction of all teeth and bleeding of the gums, now packed with gauze. EYES: No scleral icterus. No injection or drainage. NECK: Supple, trachea midline. No JVD or lymphadenopathy. 8.0 Shiley Tracheostomy in midline without signs of infection , bleeding or inflammation. Currently on T piece CARDIOVASCULAR: RRR. S1, S2 no S4. RESPIRATORY: Few crackles patient bases bilaterally. No wheezing GASTROINTESTINAL: Abdomen soft, non-tender, nondistended. PEG tube is clean dry and intact MUSCULOSKELETAL: No significant peripheral edema edema. NEURO EXAM: Cranial nerves II through XII grossly intact. Strength is equal symmetric. Normal sensation Procedures Dr. Mackay - Removal of the hematoma maxillary extraction sites to control and stop the bleeding with 1% lidocaine with 1-1000 epinephrine also, examination of extraction sites. 10/31 A/P Assessment and Plan Neuro/Psych: Seizure disorder NOS Depression/anxiety History of bithalamic CVA History of CPM Postop day #0 Removal of the hematoma maxillary extraction sites to control and stop the bleeding. Also, examination of extraction sites by Dr. Mackay. Currently on acetaminophen 650 mg by tube every 6 hours when necessary pain 1 through 5/fever and hydromorphone 0.5 mg IV every 4 hours when necessary pain 6 or 10 Continue levetiracetam 1000 mg twice a day Continue trazodone 75 mg at night Continue mirtazapine 15 mg daily Continue multivitamin and thiamine 100 mg daily Postoperative care per Dr. Mackay including oral gauze changes as needed CV: Chronic systolic heart ejection fraction 35-40% 03/18 Currently normal saline at 100 cc an hour 2-D echocardiogram 03/18 revealed EF 35-40%. No regional wall motion abnormality. Pulmonary arterial pressures 33 mmHg Resp: Chronic respiratory failure secondary to upper airway obstruction/CA Status post tracheostomy Dr. Oro 10/18 Currently on T piece FiO2 28% As needed albuterol every 2 hours when necessary dyspnea GI: Dysphagia secondary to CA History splenomegaly History of likely EtOH cirrhosis Elevated ammonia PEG tube -Haim Restart tube feeding per dietary conditions. I started on Neutra hep at 45 cc goal with 100 cc free water every 8 hours Famotidine for GI prophylaxis Docusate sodium/senna 1 tablet twice a day for bowel regimen along with lactulose 45 cc 3 times a day Continue cholestyramine 4 g daily : No indication for Johns catheter Endo: Sliding-scale insulin only if indicated to maintain euglycemia Renal: Monitor urine output Accurate I's and O's Repeat BMP in a.m. 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 Mona/Maulik documented oncologist/ENT Serial hemoglobins. Transfuse as clinically indicated ID: Monitor for infection FEN: Chronic hyponatremia Replace electrolytes as clinically indicated MSK: PT evaluate and treat Access - Utilize peripheral IV. Central line if indicated Prophylaxis -GI -famotidine - DVT - SCD/holding pharmacological prophylaxis in light of acute hemorrhage Additional 35 minutes critical care time Biga,Larry M. MD Oct 31, 2017 09:54
[2017-10-31] MEDS ORDERED: ACETAMINOPHEN 650 MG/20.3 ML UDC PO PRN (10:00)
[2017-10-31] MEDS ORDERED: RESP: ALBUTEROL 2.5 MG/3 ML NEB (PRN) NEB (10:00)
[2017-10-31 13:43] LABS: HEMATOCRIT 24.7 % (39.0-51.0)
[2017-10-31 13:52] LABS: REVIEW FLAG FINAL
[2017-10-31] MEDS ORDERED: MICROFIBRILLAR COLLAGEN HEMOSTAT 1 GM PKT ONE (16:14)
[2017-10-31] MEDS ORDERED: CHLORHEXIDINE GLUCONATE 0.12% 15 ML CUP ONE (16:14)
[2017-10-31] MEDS ORDERED: LIDOCAINE 2%/EPINEPHrine PF 1:200,000 20ML SDV ONE (16:15)
[2017-10-31] MEDS ORDERED: BUPIVACAINE/EPINEPHRINE 0.5% PF 30 ML VIAL ONE (16:15)
--- NOTE | 2017-10-31 16:59 | HHI.PR ---
Subjective Remarks s/p full mouth teeth extraction, 10-30-17, prior hemo/radiation for throat cancer uncontrolled bleeding -->local hemostatic measures in er early this am 10-31-17 Pt seen and examined 740 this am aaox3, nad, reports feeling better decrease in bleeding. denies sob/difficulty breathing. no complaints Objective Vital Signs Date Time Temp Pulse Resp B/P (MAP) Pulse Ox O2 Delivery O2 Flow Rate FiO2 10/31/17 16:00 74 10/31/17 16:00 98.0 74 22 124/60 (81) 99 10/31/17 14:00 57 10/31/17 12:00 62 10/31/17 12:00 97.8 57 17 102/59 (73) 100 10/31/17 10:00 63 10/31/17 08:00 69 10/31/17 08:00 98.2 69 16 104/58 (73) 100 10/31/17 07:32 100 T-piece 28 10/31/17 07:00 99 T-Piece 28 10/31/17 06:00 59 10/31/17 05:30 98 T-Piece 21 10/31/17 05:30 68 10/31/17 05:15 98.6 76 15 113/63 (80) 99 10/31/17 03:48 79 18 121/64 (83) 100 Trach Collar 10/31/17 01:17 99 20 97/51 (66) 99 Trach Collar 10/30/17 23:24 98 Trach Collar 28 10/30/17 21:57 99.0 80 18 98/56 (70) 97 I/O 10/30/17 10/30/17 10/30/17 10/31/17 10/31/17 10/31/17 07:00 15:00 23:00 07:00 15:00 23:00 Output Total 200 ml Balance -200 ml Output Urine Total 200 ml # Voids 1 Result Diagram: 10/31/17 1225 10/30/17 2300 Objective Remarks trac site stable intraorally no heme noted oozing maxillary extraction sites mandibular extraction sites, minimal oozing, all wound margins well approximated. sutures intact no elevation fom/tongue Assessment and Plan Assessment and Plan s/p full mouth teeth extraction, 10-30-17, prior hemo/radiation for throat cancer uncontrolled bleeding -->local hemostatic measures in er early this am 17 vital stable, bleeding better controlled will follow - possible intervention mor this afternoon as needed continue biting down on gauze change q 1/2 hr prn bleeding. Jamie Mackay DMD Oct 31, 2017 16:59
--- NOTE | 2017-10-31 17:09 | HHI.PR ---
Subjective Remarks s/p full mouth teeth extraction, 10-30-17, prior hemo/radiation for throat cancer uncontrolled bleeding -->local hemostatic measures in er early this am 10-31-17 Pt seen and examined this afternoon, nurse at bedside aaox3, nad, feels much better, stronger, has been oob to chair reports feeling better, some soreness/pain extraction sites continued decrease in bleeding. denies sob/difficulty breathing. no complaints Objective Vital Signs Date Time Temp Pulse Resp B/P (MAP) Pulse Ox O2 Delivery O2 Flow Rate FiO2 10/31/17 16:00 74 10/31/17 16:00 98.0 74 22 124/60 (81) 99 10/31/17 14:00 57 10/31/17 12:00 62 10/31/17 12:00 97.8 57 17 102/59 (73) 100 10/31/17 10:00 63 10/31/17 08:00 69 10/31/17 08:00 98.2 69 16 104/58 (73) 100 10/31/17 07:32 100 T-piece 28 10/31/17 07:00 99 T-Piece 28 10/31/17 06:00 59 10/31/17 05:30 98 T-Piece 21 10/31/17 05:30 68 10/31/17 05:15 98.6 76 15 113/63 (80) 99 10/31/17 03:48 79 18 121/64 (83) 100 Trach Collar 10/31/17 01:17 99 20 97/51 (66) 99 Trach Collar 10/30/17 23:24 98 Trach Collar 28 10/30/17 21:57 99.0 80 18 98/56 (70) 97 I/O 10/30/17 10/30/17 10/30/17 10/31/17 10/31/17 10/31/17 07:00 15:00 23:00 07:00 15:00 23:00 Output Total 200 ml Balance -200 ml Output Urine Total 200 ml # Voids 1 Result Diagram: 10/31/17 1225 10/30/17 2300 Objective Remarks trac site stable intraorally no heme noted oozing maxillary extraction sites mandibular extraction sites, now very minimal oozing, gauze has minimal residual heme all wound margins well approximated. sutures intact no elevation fom/tongue Assessment and Plan Assessment and Plan s/p full mouth teeth extraction, 10-30-17, prior hemo/radiation for throat cancer uncontrolled bleeding -->local hemostatic measures in er early this am 10-31-17 vital stable, h/h noted. bleeding significantly slowing down, better improved, clincally pt feeling much better ok to resume tube feeds will follow -no OR at this time will leave gauze out of mouth at this time , continue biting down on gauze change q 1/2 hr prn bleeding. Jamie Mackay DMD Oct 31, 2017 17:09
[2017-10-31 17:33] LABS: HEMATOCRIT 26.4 % (39.0-51.0); REVIEW FLAG FINAL
[2017-10-31] MEDS ORDERED: traZODone HCL 50 MG TAB PO SCH (21:00)
[2017-10-31] MEDS ORDERED: MIRTAZAPINE 15 MG TAB PO SCH (21:00)
[2017-10-31 22:27] LABS: HEMATOCRIT 25.4 % (39.0-51.0)
[2017-10-31 22:28] LABS: REVIEW FLAG FINAL
[2017-11-01] VITALS: BP 130/65; PULSE 62; PULSE 98; RESP 28; TEMP 98; O2SAT 100
[2017-11-01] MEDS: CHLORHEXIDINE GLUCONATE 2 % 1 PACK (2 CLOTHS) TOP SCH (01:26)
[2017-11-01] MEDS: HYDROmorphone HCL PF 0.5 MG/0.5 ML SYRINGE IV PUSH PRN (01:27)
[2017-11-01 02:00] VITALS: PULSE 62
[2017-11-01] MEDS: SODIUM CHLOR 0.9% 1000 ML INJ 1,000 ML IV SCH (03:24)
[2017-11-01] MEDS: RESP: ALBUTEROL 2.5 MG/IPRATROPIUM 0.5 MG NEB (SCH) INH ×2 (03:29→10:40)
[2017-11-01 04:00] VITALS: BP 106/59; PULSE 64; RESP 25; TEMP 97.7; O2SAT 98
[2017-11-01 06:00] VITALS: PULSE 70
[2017-11-01 06:07] LABS: INTERNATIONAL NORMALIZED RATIO 1.2 RATIO; PROTHROMBIN TIME - PATIENT 11.9 SEC (9.8-11.6)
[2017-11-01 06:11] LABS: AUTOMATED NEUTROPHIL # 3.3 TH/MM3 (1.8-7.7); BASOPHIL % 0.3 % (0.0-2.0); EOSINOPHIL # 0.1 TH/MM3 (0-0.4); EOSINOPHIL % 1.8 % (0.0-4.0); HEMATOCRIT 26.4 % (39.0-51.0); LYMPH % 23.8 % (9.0-44.0); LYMPHOCYTE # 1.2 TH/MM3 (1.0-4.8); MEAN CELL VOLUME 87.4 FL (80.0-100.0); MEAN CORPUSCULAR HEMOGLOBIN 29.9 PG (27.0-34.0); MEAN CORPUSCULAR HGB CONC 34.1 % (32.0-36.0); MONO % 8.8 % (0.0-8.0); NEUT % 65.3 % (16.0-70.0); PLATELET COUNT 97 TH/MM3 (150-450); RED BLOOD COUNT 3.02 MIL/MM3 (4.50-5.90); WHITE BLOOD COUNT 5.1 TH/MM3 (4.0-11.0)
[2017-11-01 06:17] LABS: HEMO FLAGS AUTO DIFF
[2017-11-01 06:24] LABS: ALKALINE PHOSPHATASE 154 U/L (45-117); ALT (GPT) 19 U/L (12-78); ANION GAP 6 MEQ/L (5-15); AST (GOT) 29 U/L (15-37); BICARBONATE 27.3 MEQ/L (21.0-32.0); BLOOD UREA NITROGEN 8 MG/DL (7-18); CHLORIDE 106 MEQ/L (98-107); GLOMERULAR FILTRATION RATE 140 ML/MIN (>89); MAGNESIUM 1.7 MG/DL (1.5-2.5); SODIUM (NA) 139 MEQ/L (136-145); TOTAL BILIRUBIN ADULT 0.8 MG/DL (0.2-1.0)
--- NOTE | 2017-11-01 06:58 | HHI.PR ---
Subjective Remarks s/p full mouth teeth extraction, 10-30-17, prior hemo/radiation for throat cancer uncontrolled bleeding -->local hemostatic measures in er early am 10-31-17 Pt seen and examined this morning, nurse at bedside aaox3, nad, feels much better, stronger, has been oob to chair reports feeling better, some soreness/pain extraction sites no overnight acute bleeding events. denies sob/difficulty breathing. no complaints Objective Vital Signs Date Time Temp Pulse Resp B/P (MAP) Pulse Ox O2 Delivery O2 Flow Rate FiO2 11/01/17 06:00 70 11/01/17 04:00 64 11/01/17 04:00 97.7 64 25 106/59 (75) 98 11/01/17 02:00 62 11/01/17 00:00 98 11/01/17 00:00 98.0 62 28 130/65 (86) 100 10/31/17 22:00 61 10/31/17 20:16 100 Trach Collar 6.00 28 10/31/17 20:00 66 10/31/17 20:00 97.8 66 22 125/63 (83) 100 10/31/17 20:00 100 T-Piece 28 10/31/17 18:00 57 10/31/17 16:00 74 10/31/17 16:00 98.0 74 22 124/60 (81) 99 10/31/17 14:00 57 10/31/17 12:00 62 10/31/17 12:00 97.8 57 17 102/59 (73) 100 10/31/17 10:00 63 10/31/17 08:00 69 10/31/17 08:00 98.2 69 16 104/58 (73) 100 10/31/17 07:32 100 T-piece 28 10/31/17 07:00 99 T-Piece 28 I/O 10/31/17 10/31/17 10/31/17 11/01/17 11/01/17 11/01/17 07:00 15:00 23:00 07:00 15:00 23:00 Intake Total 1000 ml 2312 ml Output Total 200 ml 500 ml 1000 ml Balance -200 ml 500 ml 1312 ml Intake IV Total 1000 ml 2108 ml Tube Feeding 204 ml Output Urine Total 200 ml 500 ml 1000 ml Gastric Drainage Total 0 ml # Voids 1 # Bowel Movements 1 Result Diagram: 11/01/1727 11/01/17526 Objective Remarks trac site stable intraorally no heme noted oozing maxillary extraction sites mandibular extraction sites, now very minimal oozing pooling with saliva all wound margins well approximated. sutures intact no signs of infection no elevation fom/tongue Assessment and Plan Assessment and Plan s/p full mouth teeth extraction, 10-30-17, prior hemo/radiation for throat cancer uncontrolled bleeding -->local hemostatic measures in er early am 10-31-17 vital stable, h/h noted. bleeding very minimal residual oozing, mandibular extraction sites, no maxillary extraction site bleeding no gauze in mouth - bleeding much better controlled. clincally pt feeling much better ok for resume tube feeds OK to d/c to home from OMS standpoint send pt home with 4x4 gauze have pt f/up with his dentist at [facility] no surgical intervention needed at this time, OMS signing off, recall as required Jamie Mackay DMD Nov 01, 2017 06:57
[2017-11-01] MEDS ORDERED: oxyCODONE HCL ORAL CONC 5 MG/0.25 ML SYRINGE PO PRN (07:15)
--- NOTE | 2017-11-01 07:18 | HHI.CCPN ---
Subjective Remarks/Hospital Course 62-year-old very pleasant gentleman who has laryngeal cancer he had all of his teeth extracted top and bottom today prior his chemotherapy radiation treatment. He said he had the surgery from 7 AM to 11 AM and then has been bleeding ever since. He came in with 2 gauzes rolled up inside of his mouth covered in blood. Patient is in no respiratory distress since he has a trach. He uses a just trach collar. He was coughing in the emergency department as he had blood running down his throat. He underwent extensive work done by [facility] with a suture and cleaning of the wounds. His bleeding has stopped however he is having pain in his mouth bilaterally. After the hemostasis was achieved the [facility] physician requested patient to be admitted to ICU overnight. Subjective 10/31: Continues to have some oozing from his oral cavity. Hemodynamically stable. Otherwise, no others acute issues. Serial hemoglobins ordered. Pain controlled with acetaminophen. 11/01: no more oozing from oral cavity. hgb stable. discussed with OMFS, stable to d/c back to facility. talked with patient. he does endorse mild pain, RN about to give prn oral pain meds. patient feels comfortable going back to facility and asks to do so. ROS negative. Objective Vital Signs Date Time Temp Pulse Resp B/P (MAP) Pulse Ox O2 Delivery O2 Flow Rate FiO2 11/01/17 06:00 70 11/01/17 04:00 97.7 25 106/59 (75) 98 10/31/17 20:16 Trach Collar 6.00 28 Intake and Output 11/01/17 11/01/17 11/02/17 08:00 16:00 00:00 Intake Total 2312 ml Output Total 1000 ml Balance 1312 ml Result Diagram: 11/01/1727 11/01/17 0527 Objective Remarks GENERAL: middle-aged male, sitting in bed, on t-piece, trach. HEAD/ears/nose and throat: Normocephalic. Status post dental extraction of all teeth, no evidence of active bleeding or oozing. EYES: No scleral icterus. No injection or drainage. NECK: Supple, trachea midline. No JVD. 8.0 Shiley Tracheostomy in midline without signs of infection , bleeding or inflammation. Currently on T piece CARDIOVASCULAR: RRR. RESPIRATORY: unlabored. equal chest rise. GASTROINTESTINAL: Abdomen soft, non-tender, nondistended. PEG tube is clean dry and intact MUSCULOSKELETAL: No significant peripheral edema edema. NEURO EXAM: RASS 0. CAM -. follows commands. Procedures Dr. Mackay - Removal of the hematoma maxillary extraction sites to control and stop the bleeding with 1% lidocaine with 1-1000 epinephrine also, examination of extraction sites. 10/31 A/P Assessment and Plan Assessment: 62yM with [id number] cancer now s/p dental extraction prior to chemo and XRT, complicated by hemorrhage. now clinically stable. ready for d/c back to facility. Neuro/Psych: Seizure disorder NOS Depression/anxiety History of bithalamic CVA History of CPM Postop day #1 Removal of the hematoma maxillary extraction sites to control and stop the bleeding. Also, examination of extraction sites by Dr. Mackay. Currently on acetaminophen 650 mg by tube every 6 hours when necessary pain 1 through 5/fever Continue levetiracetam 1000 mg twice a day Continue trazodone 75 mg at night Continue mirtazapine 15 mg daily Continue multivitamin and thiamine 100 mg daily Postoperative care per Dr. Mackay including oral gauze changes as needed CV: Chronic systolic heart ejection fraction 35-40% 03/18 Currently normal saline at 100 cc an hour 2-D echocardiogram 03/18 revealed EF 35-40%. No regional wall motion abnormality. Pulmonary arterial pressures 33 mmHg Resp: Chronic respiratory failure secondary to upper airway obstruction/CA Status post tracheostomy Dr. Oro 10/18 Currently on T piece FiO2 28% As needed albuterol every 2 hours when necessary dyspnea GI: Dysphagia secondary to CA History splenomegaly History of likely EtOH cirrhosis Elevated ammonia PEG tube -Haim tolerating tube feeds. 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 Mona/Maulik documented oncologist/ENT hgb stable. ID: Monitor for infection FEN: Chronic hyponatremia Replace electrolytes as clinically indicated MSK: PT evaluate and treat Access - Utilize peripheral IV. Prophylaxis -GI -famotidine - DVT - SCD/holding pharmacological prophylaxis in light of acute hemorrhage Dispo: transfer back to facility. Tu Bryant MD Nov 01, 2017 07:18
--- NOTE | 2017-11-01 07:19 | HHI.DS ---
Discharge Summary Admission Date Oct 31, 2017 at 01:24 Admitting Diagnosis uncontrolled bleeding post operative complication Procedures Dr. Mackay - Removal of the hematoma maxillary extraction sites to control and stop the bleeding with 1% lidocaine with 1-1000 epinephrine also, examination of extraction sites. 10/31 Brief History 62-year-old very pleasant gentleman who has laryngeal cancer he had all of his teeth extracted top and bottom today prior his chemotherapy radiation treatment. He said he had the surgery from 7 AM to 11 AM and then has been bleeding ever since. He came in with 2 gauzes rolled up inside of his mouth covered in blood. Patient is in no respiratory distress since he has a trach. He uses a just trach collar. He was coughing in the emergency department as he had blood running down his throat. He underwent extensive work done by [facility] with a suture and cleaning of the wounds. His bleeding has stopped however he is having pain in his mouth bilaterally. After the hemostasis was achieved the OMFS physician requested patient to be admitted to ICU overnight. CBC/BMP: 11/01/17 0527 11/01/17 0527 Significant Findings Laboratory Tests Test 10/30/17 23:00 10/31/17 03:55 10/31/17 05:07 10/31/17 12:25 White Blood Count 11.7 TH/MM3 (4.0-11.0) Red Blood Count 3.52 MIL/MM3 (4.50-5.90) Hemoglobin 10.2 GM/DL (13.0-17.0) 9.6 GM/DL (13.0-17.0) 8.5 GM/DL (13.0-17.0) Hematocrit 30.4 % (39.0-51.0) 27.8 % (39.0-51.0) 24.7 % (39.0-51.0) Neutrophils (%) (Auto) 71.3 % (16.0-70.0) Monocytes (%) (Auto) 9.0 % (0.0-8.0) Neutrophils # (Auto) 8.3 TH/MM3 (1.8-7.7) Monocytes # (Auto) 1.1 TH/MM3 (0-0.9) Activated Partial Thromboplast Time 22.4 SEC (24.3-30.1) Albumin 3.2 GM/DL (3.4-5.0) Alkaline Phosphatase 197 U/L (45-117) Aspartate Amino Transf (AST/SGOT) 53 U/L (15-37) Sodium Level 134 MEQ/L (136-145) Ammonia 40 MCMOL/L (11-32) Test 10/31/17 17:00 10/31/17 21:05 11/01/17 05:27 Hemoglobin 8.9 GM/DL (13.0-17.0) 8.7 GM/DL (13.0-17.0) 9.0 GM/DL (13.0-17.0) Hematocrit 26.4 % (39.0-51.0) 25.4 % (39.0-51.0) 26.4 % (39.0-51.0) Red Blood Count 3.02 MIL/MM3 (4.50-5.90) Platelet Count 97 TH/MM3 (150-450) Monocytes (%) (Auto) 8.8 % (0.0-8.0) Prothrombin Time 11.9 SEC (9.8-11.6) Creatinine 0.59 MG/DL (0.60-1.30) Albumin 2.7 GM/DL (3.4-5.0) Alkaline Phosphatase 154 U/L (45-117) Hospital Course 62-year-old very pleasant gentleman who has laryngeal cancer he had all of his teeth extracted top and bottom today prior his chemotherapy radiation treatment. He said he had the surgery from 7 AM to 11 AM and then has been bleeding ever since. He came in with 2 gauzes rolled up inside of his mouth covered in blood. Patient is in no respiratory distress since he has a trach. He uses a just trach collar. He was coughing in the emergency department as he had blood running down his throat. He underwent extensive work done by [facility] with a suture and cleaning of the wounds. His bleeding has stopped however he is having pain in his mouth bilaterally. After the hemostasis was achieved the [facility] physician requested patient to be admitted to ICU overnight. Subjective 10/31: Continues to have some oozing from his oral cavity. Hemodynamically stable. Otherwise, no others acute issues. Serial hemoglobins ordered. Pain controlled with acetaminophen. 11/01: no more oozing from oral cavity. hgb stable. discussed with OMFS, stable to d/c back to facility. talked with patient. he does endorse mild pain, RN about to give prn oral pain meds. patient feels comfortable going back to facility and asks to do so. ROS negative. Remained stable throughout hospital course once surgical hemostasis occurred. tolerating tube feeds, voiding, pain adequately controlled on oral meds. stable for transfer back to facility. Pt Condition on Discharge: Stable Discharge Disposition: Discharge to SNF Discharge Instructions DIET: Follow Instructions for: On Tube Feeding Activities you can perform: Regular-No Restrictions uT Bryant MD Nov 01, 2017 07:19
[2017-11-01] MEDS ORDERED: oxyCODONE LIQ PO (07:24)
[2017-11-01 07:42] LABS: PLATELET ESTIMATE SMEAR LOW (NORMAL); PLATELET MORPHOLOGY NORMAL (NORMAL); SCAN/DIFF AUTO DIFF CONFIRMED
[2017-11-01 08:00] VITALS: BP 117/68; PULSE 74; PULSE 85; RESP 29; TEMP 98.2; O2SAT 96
[2017-11-01] MEDS: LACTULOSE SYRUP 20 GM/30 ML CUP PO SCH (08:19)
[2017-11-01] MEDS: THIAMINE HCL 100 MG TAB PO SCH (08:19)
[2017-11-01] MEDS: levETIRAcetam 500 MG TAB PO SCH (08:19)
[2017-11-01] MEDS: SODIUM CHLORIDE 0.9% FLUSH 10 ML FLUSH IV FLUSH SCH (08:20)
[2017-11-01] MEDS: DOCUSATE SODIUM 50 MG/SENNA 8.6 MG TAB PO SCH (08:20)
[2017-11-01] MEDS: CHOLESTYRAMINE LIGHT 4 GM PACKAGE PO SCH (08:20)
[2017-11-01] MEDS: MULTIVITAMINS/MINERALS THERAPEUTIC TAB PO SCH (08:41)
[2017-11-01] MEDS ORDERED: FAMOTIDINE 20 MG TAB NG SCH (09:00)
[2017-11-01 10:00] VITALS: PULSE 69
== END 2017-11-01 10:56 | DRG 908 ==
LOC: NEPC 21:51 → NEDA 10-31 01:24 → OBSVTOIN 10-31 01:24 → N03B 10-31 04:33
PROVIDERS: ADMIT Internal Medicine Critical Care Medicine; ATTEND Internal Medicine Critical Care Medicine
PROC: 0W330ZZ Control Bleeding in Oral Cavity and Throat, Open Approach (ICD-10-PCS; principal; 2017-10-31)
PROC: 0CC Mouth and Throat, Extirpation (ICD-10-PCS; 2017-10-31)
DX: K91.840 Postprocedural hemorrhage of a digestive system organ or structure following a digestive system procedure (principal); D62 Acute posthemorrhagic anemia; J96.10 Chronic respiratory failure, unspecified whether with hypoxia or hypercapnia; R64 Cachexia; Z93.0 Tracheostomy status; E87.1 Hypo-osmolality and hyponatremia; G37.2 Central pontine myelinolysis; R13.19 Other dysphagia; K70.30 Alcoholic cirrhosis of liver without ascites; K91.870 Postprocedural hematoma of a digestive system organ or structure following a digestive system procedure; C32.9 Malignant neoplasm of larynx, unspecified; K06.8 Other specified disorders of gingiva and edentulous alveolar ridge; F32.9 Major depressive disorder, single episode, unspecified; G40.909 Epilepsy, unspecified, not intractable, without status epilepticus; F10.11 Alcohol abuse, in remission; F41.9 Anxiety disorder, unspecified; R16.1 Splenomegaly, not elsewhere classified; G47.00 Insomnia, unspecified; Z68.20 Body mass index [BMI] 20.0-20.9, adult; Z86.73 Personal history of transient ischemic attack (TIA), and cerebral infarction without residual deficits; Z91.010 Allergy to peanuts; Z91.013 Allergy to seafood; Z93.1 Gastrostomy status; Z92.21 Personal history of antineoplastic chemotherapy; Z92.3 Personal history of irradiation
CPT/HCPCS: 80053; 82140; 83735; 84100; 85014; 85018; 85025; 85610; 85730; 86850; 86900; 86901; 87641; 94640; 94664; J1170; J2270; J2405; J7030

== ENCOUNTER 2018-03-23 13:34 | Inpatient (IN) | payer MEDICAID ==
[~2018-03-23] VITALS: Ht 177.8 cm; Wt 64.2 kg
[2018-03-23] VITALS (8 sets, daily range): BP systolic 108–131; BP diastolic 66–88; PULSE 82–96; RESP 16–18; TEMP 97.8–99.1; O2SAT 93–99
[~2018-03-23 13:34] MED LIST changes: -ASPI81TA16 PO; +oxyCODONE LIQ PO
[2018-03-23] MEDS: SODIUM CHLORIDE 0.9% FLUSH 10 ML FLUSH IVF PRN ×2 (13:58→16:50)
[2018-03-23] MEDS ORDERED: LACT10SO G-TUBE (14:02)
[2018-03-23] MEDS ORDERED: FERR325T18 G-TUBE (14:02)
[2018-03-23] MEDS ORDERED: MELA5 PEG (14:02)
[2018-03-23] MEDS ORDERED: FENT50DI T-DERMAL (14:02)
[2018-03-23] MEDS ORDERED: MULT-142 PEG (14:02)
[2018-03-23] MEDS ORDERED: OXYC-395 PO ×2 (14:02→14:09)
[2018-03-23] MEDS ORDERED: KEPP10002 G-TUBE (14:02)
[2018-03-23] MEDS ORDERED: TRAZ100T10 G-TUBE (14:09)
[2018-03-23] MEDS ORDERED: THIA100T5 G-TUBE (14:09)
[2018-03-23] MEDS ORDERED: ZOFR8TAB G-TUBE (14:09)
[2018-03-23] MEDS ORDERED: REME15TA G-TUBE (14:09)
--- NOTE | 2018-03-23 14:10 | PD ---
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 He states he felt by Dr. Zuniga he has seen Dr. Mackay before, initially told me he saw Dr. Mackay after his tracheostomy fell out and they decided that they were just going to wait and see what happened. He denies any cough congestion fevers, states it worsens when he swallows, he states he knows he should not drink but that he does so anyways. He does the majority of his feeding through tube feeding. He is not doing chemotherapy is not had explored any surgical options for his cancer. States symptoms are moderate, gradually worsening, context above, duration as above PFSH Past Medical History Anxiety: No Depression: Yes Cancer: Yes (laryngeal CA ) Cardiovascular Problems: No Chemotherapy: No Cerebrovascular Accident: Yes (Bilateral thalamic stroke) Diminished Hearing: No Endocrine: No Gastrointestinal Disorders: Yes (liver disease, malnutrition) Genitourinary: Yes (reoccuring UTI/MDRO) Immune Disorder: No Insomnia: Yes Musculoskeletal: No Neurologic: Yes (central pontine myelinolysis) Psychiatric: Yes (ETOH ABUSE IN THE PAST) Reproductive: No Respiratory: Yes (pna, chronic resp failure, trach ) Radiation Therapy: No Seizures: Yes Tetanus Vaccination: < 5 Years Influenza Vaccination: Yes Past Surgical History Abdominal Surgery: Yes (hernia, peg placement ) AICD: No Body Medical Devices: PEG TUBE, TRACH Neurologic Surgery: Yes (pt states brain sx) Pacemaker: No Social History Alcohol Use: No Tobacco Use: No Substance Use: Yes (hx ETOH abuse ) Allergies-Medications (Allergen,Severity, Reaction): Coded Allergies: peanut (Verified Allergy, Severe, RASH, 03/23/18) Fish Containing Products (Verified Allergy, Mild, Rash, 03/23/18) chicken derived (Verified Allergy, Mild, Rash, 03/23/18) Reported Meds & Prescriptions Reported Meds & Active Scripts Active Reported Zofran (Ondansetron HCl) 8 Mg Tab 8 Mg G-TUBE Q6HR Trazodone (Trazodone HCl) 100 Mg Tablet 100 Mg G-TUBE HS Remeron (Mirtazapine) 15 Mg Tab 15 Mg G-TUBE HS Thiamine HCl 100 Mg Tablet 1 Tab G-TUBE DAILY Oxycodone (Oxycodone HCl) 10 Mg Tab 10 Mg PO Q4HR Oxycodone (Oxycodone HCl) 10 Mg Tab 10 Mg PO Q4HR Multi Vitamin and Mineral (Multiple Vitamins W/ Minerals) 7.5 Mg Iron-400 Mcg Tab 1 Tab PEG DAILY Melatonin 5 Mg Tab 6 Mg PEG HS Lactulose Liq (Lactulose) 10 Gm/15 Ml Soln 30 Ml G-TUBE Q6H PRN Keppra (Levetiracetam) 1,000 Mg Tab 1,000 Mg G-TUBE BID Ferrous Sulfate 325 Mg (65 Mg Iron) Tablet 325 Mg G-TUBE DAILY Fentanyl Patch 72 HR (Fentanyl) 50 Mcg/Hr Patch 50 Mcg T-DERMAL Q72H Remove old patch when new one placed. Review of Systems Except as stated in HPI: all other systems reviewed are Neg Physical Exam Narrative GENERAL: Well-developed and nourished no obvious distress, coughing productive of some clear sputum, SKIN: Focused skin assessment warm/dry. HEAD: Atraumatic. Normocephalic. EYES: Pupils equal and round. No scleral icterus. No injection or drainage. ENT: No nasal bleeding or discharge. Mucous membranes pink and moist. Patient does have some elevation of his tongue, there is some swelling in the supple mental region probably about a softball sized area, there is no ready erythema, the neck is actually nontender. Bilateral cerumen impaction. NECK: Trachea midline. No JVD. CARDIOVASCULAR: Regular rate and rhythm. No murmur appreciated. No murmurs gallops or rubs, no Dallas's crunch. RESPIRATORY: No accessory muscle use. Clear to auscultation. Breath sounds equal bilaterally. GASTROINTESTINAL: Abdomen soft, non-tender, nondistended. Hepatic and splenic margins not palpable. MUSCULOSKELETAL: No obvious deformities. No clubbing. No cyanosis. No edema. NEUROLOGICAL: Awake and alert. No obvious cranial nerve deficits. Motor grossly within normal limits. Normal speech. PSYCHIATRIC: Appropriate mood and affect; insight and judgment normal. Data Data Last Documented VS Vital Signs Date Time Temp Pulse Resp B/P (MAP) Pulse Ox O2 Delivery O2 Flow Rate FiO2 03/23/18 16:02 97.8 83 16 126/73 (90) 99 Room Air Orders Orders Electrocardiogram (03/23/18 13:46) Complete Blood Count With Diff (03/23/18 13:46) Comprehensive Metabolic Panel (03/23/18 13:46) Magnesium (Mg) (03/23/18 13:46) Prothrombin Time / Inr (Pt) (03/23/18 13:46) Act Partial Throm Time (Ptt) (03/23/18 13:46) Chest, Single Ap (03/23/18 13:46) Ecg Monitoring (03/23/18 13:46) Iv Access Insert/Monitor (03/23/18 13:46) Oximetry (03/23/18 13:46) Oxygen Administration (03/23/18 13:46) Sodium Chloride 0.9% Flush (Ns Flush) (03/23/18 14:00) Ct Soft Tiss Neck W Iv Cont (03/23/18 ) Iohexol 350 Inj (Omnipaque 350 Inj) (03/23/18 15:10) Consult Ent (03/23/18 ) (Hub Use Only)Inp Phy Cons/Ref (03/23/18 ) Dexamethasone Inj (Decadron Inj) (03/23/18 16:45) Admit Order (Ed Use Only) (03/23/18 ) Labs Laboratory Tests Test 03/23/18 13:58 White Blood Count 4.6 TH/MM3 Red Blood Count 3.62 MIL/MM3 Hemoglobin 10.9 GM/DL Hematocrit 32.1 % Mean Corpuscular Volume 88.8 FL Mean Corpuscular Hemoglobin 30.2 PG Mean Corpuscular Hemoglobin Concent 34.0 % Red Cell Distribution Width 14.7 % Platelet Count 93 TH/MM3 Mean Platelet Volume 7.3 FL Neutrophils (%) (Auto) 76.1 % Lymphocytes (%) (Auto) 11.9 % Monocytes (%) (Auto) 7.6 % Eosinophils (%) (Auto) 3.7 % Basophils (%) (Auto) 0.7 % Neutrophils # (Auto) 3.5 TH/MM3 Lymphocytes # (Auto) 0.6 TH/MM3 Monocytes # (Auto) 0.4 TH/MM3 Eosinophils # (Auto) 0.2 TH/MM3 Basophils # (Auto) 0.0 TH/MM3 CBC Comment AUTO DIFF Differential Comment AUTO DIFF CONFIRMED Prothrombin Time 11.3 SEC Prothromb Time International Ratio 1.1 RATIO Activated Partial Thromboplast Time 27.0 SEC Blood Urea Nitrogen 14 MG/DL Creatinine 0.73 MG/DL Random Glucose 132 MG/DL Total Protein 7.5 GM/DL Albumin 3.5 GM/DL Calcium Level 9.3 MG/DL Magnesium Level 1.9 MG/DL Alkaline Phosphatase 170 U/L Aspartate Amino Transf (AST/SGOT) 47 U/L Alanine Aminotransferase (ALT/SGPT) 41 U/L Total Bilirubin 0.9 MG/DL Sodium Level 136 MEQ/L Potassium Level 4.4 MEQ/L Chloride Level 101 MEQ/L Carbon Dioxide Level 29.7 MEQ/L Anion Gap 5 MEQ/L Estimat Glomerular Filtration Rate 110 ML/MIN MDM Medical Decision Making Medical Screen Exam Complete: Yes Emergency Medical Condition: Yes Differential Diagnosis Examination is seems unlikely, submental swelling, impending airway compromise unlikely, airway threatened probable, mass-effect, expanding hematoma unlikely, infection unlikely. Narrative Course Patient room to the emergency department, his stoma is already closed, the perhaps is a very small communication into his trachea now probably less than the tip of the pain. Patient is for the time being protecting his airway and is able to speak in full sentences, he states that he does not have any ear nose and throat surgeon, no chest pain no shortness of breath. Initially he is very reluctant to have another tracheostomy placement I discussed with him that if it came down to life or he did agree to having a tracheostomy. Patient has CT of his neck performed: Last 24 hours Impressions Chest X-Ray 03/23/18 1346 Signed Impressions: Service Date/Time: Friday, March 23, 2018 14:02 - CONCLUSION: No acute cardiopulmonary process Jd Hensley MD Neck CT 03/23/18 0000 Signed Impressions: Service Date/Time: Friday, March 23, 2018 15:04 - CONCLUSION: 1. A. October 2017, patient had a large right parapharyngeal mass lesion with an associated large jugulodigastric necrotic lymph node. These are both no longer present. No new mass lesions identified. 2. However, there is some edema within the tissue planes of the right neck. Findings may represent post radiation changes. 3. Mild chronic sinus disease in the inferior aspect of both maxillary antra, right greater than left. Jd Hensley MD The patient was discussed with Dr. Mackay who is seen the patient in the past for post dental extraction bleeding, he has not seen the patient in follow-up after his tracheostomy was dislodged she does not know the patient from an ear nose and throat standpoint. Patient continues to protect his airway or in the 3 hour ED stay, ultimately was discussed with Dr. Zuniga's partner who is on- call for him, he recommends that if this appears to be a new finding the patient be admitted for ENT consult and I agree. The patient was discussed with Dr. Arias given his airway involvement I think it is reasonable for him to go to the ICU for the night, he was given Decadron, he did complain of pain in his throat was given morphine and Zofran after he did have one episode of emesis just after discussing with Dr. Arias. Critical Care Narrative Aggregate critical care time was 35 minutes. Time to perform other separately billable procedures was not included in the critical care time. My time did not include minutes spent treating any other patients simultaneously or on activities that did not directly contribute to the patient's treatment. The services I provided to this patient were to treat and/or prevent clinically significant deterioration that could result in: , disability, organ failure I provided critical care services requiring my management, as noted below: Chart data review, documentation time, medication orders and management, vital sign assessments/reviewing monitor data, ordering and reviewing lab tests, ordering and interpreting/reviewing x-rays and diagnostic studies, care of the patient and discussion of the patient with the admitting physicians. Diagnosis Primary Impression: Neck swelling Additional Impression: Airway obstruction Admitting Information Admitting Physician Requests: Admit Condition: Shyam Burnett MD Mar 23, 2018 14:10
[2018-03-23 14:20] LABS: AUTOMATED NEUTROPHIL # 3.5 TH/MM3 (1.8-7.7); BASOPHIL % 0.7 % (0.0-2.0); EOSINOPHIL # 0.2 TH/MM3 (0-0.4); EOSINOPHIL % 3.7 % (0.0-4.0); HEMATOCRIT 32.1 % (39.0-51.0); HEMOGLOBIN 10.9 GM/DL (13.0-17.0); LYMPH % 11.9 % (9.0-44.0); LYMPHOCYTE # 0.6 TH/MM3 (1.0-4.8); MEAN CELL VOLUME 88.8 FL (80.0-100.0); MEAN CORPUSCULAR HEMOGLOBIN 30.2 PG (27.0-34.0); MEAN PLATELET VOLUME 7.3 FL (7.0-11.0); MONO % 7.6 % (0.0-8.0); MONOCYTE # 0.4 TH/MM3 (0-0.9); NEUT % 76.1 % (16.0-70.0); PLATELET COUNT 93 TH/MM3 (150-450); RED BLOOD COUNT 3.62 MIL/MM3 (4.50-5.90); RED CELL DISTRIBUTION WIDTH 14.7 % (11.6-17.2); WHITE BLOOD COUNT 4.6 TH/MM3 (4.0-11.0)
[2018-03-23 14:28] LABS: INTERNATIONAL NORMALIZED RATIO 1.1 RATIO; PROTHROMBIN TIME - PATIENT 11.3 SEC (9.8-11.6)
[2018-03-23 14:36] LABS: ALBUMIN 3.5 GM/DL (3.4-5.0); AST (GOT) 47 U/L (15-37); BICARBONATE 29.7 MEQ/L (21.0-32.0); BLOOD UREA NITROGEN 14 MG/DL (7-18); CALCIUM 9.3 MG/DL (8.5-10.1); CHLORIDE 101 MEQ/L (98-107); CREATININE 0.73 MG/DL (0.60-1.30); GLOMERULAR FILTRATION RATE 110 ML/MIN (>89); GLUCOSE,RANDOM 132 MG/DL (74-106); MAGNESIUM 1.9 MG/DL (1.5-2.5); SODIUM (NA) 136 MEQ/L (136-145)
[2018-03-23 14:38] LABS: ALT (GPT) 41 U/L (12-78)
[2018-03-23 14:40] LABS: ALKALINE PHOSPHATASE 170 U/L (45-117); TOTAL BILIRUBIN ADULT 0.9 MG/DL (0.2-1.0); TOTAL PROTEIN 7.5 GM/DL (6.4-8.2)
--- NOTE | 2018-03-23 14:46 | RADRPT ---
EXAM DATE/TIME: 03/23/2018 14:02 [facility] COMPARISON: CHEST SINGLE AP, October 03, 2017, 11:41. INDICATIONS : Chest pain and neck pain. MEDICAL HISTORY : None. SURGICAL HISTORY : None. ENCOUNTER: Initial ACUITY: 1 day PAIN SCORE: 8/10 LOCATION: Bilateral chest FINDINGS: A single view of the chest demonstrates the lungs to be symmetrically aerated without evidence of mas s, infiltrate or effusion. The cardiomediastinal contours are unremarkable. Osseous structures are intact with a prominent left coracoclavicular spur. CONCLUSION: No acute cardiopulmonary process Jd Hensley MD on March 23, 2018 at 14:43 Board Certified Radiologist. This report was verified electronically.
[2018-03-23] MEDS ORDERED: IOHEXOL 350 MG/ML 10 ML VIAL (for RAD DIAG) IVCONTRAST ONE (15:10)
--- NOTE | 2018-03-23 15:35 | RADRPT ---
EXAM DATE/TIME: 03/23/2018 15:04 [facility] COMPARISON: CT SOFT TISSUE NECK W CONTRAST, October 03, 2017, 12:03. INDICATIONS : Neck swelling increased since diagnosis of laryngeal cancer. IV CONTRAST: 75 cc Omnipaque 350 (iohexol) IV RADIATION DOSE: 13.63 CTDIvol (mGy) MEDICAL HISTORY : Cerebrovascular disease. Seizures. Cirrhosis.laryngeal ca, C Diff, ETOH, CP meyelinolysis SURGICAL HISTORY : Brain ENCOUNTER: Initial ACUITY: 1 week PAIN SCALE: 0/10 LOCATION: Bilateral neck TECHNIQUE: Volumetric scanning of the neck was performed. Using automated exposure control and adjustment of th e mA and/or kV according to patient size, radiation dose was kept as low as reasonably achievable to obtain optimal diagnostic quality images. DICOM format image data is available electronically for r eview and comparison. FINDINGS: NASOPHARYNX: The nasopharyngeal airway has a normal configuration. No mucosal thickening or mass is seen. OROPHARYNX: On the prior exam, there was a large 3.1 x 3.6 cm right parapharyngeal mass with an associated necrot ic jugulodigastric lymph node also on the right. Both of these are no longer present. I do not see an y residual adenopathy. There is some edema within the tissues of the right neck which could represent post radiation changes. LARYNX: The supraglottic, glottic, and infraglottic structures are intact. PARAPHARYNGEAL: The parapharyngeal space is intact. SALIVARY GLANDS: The parotid and submandibular glands are intact. LYMPH NODES: No enlarged or necrotic-appearing nodes. Previous large, necrotic node in the right cervical chain is no longer present. THYROID: Homogeneous enhancement without evidence of nodule. BONES: Unremarkable. CONCLUSION: 1. A. October 2017, patient had a large right parapharyngeal mass lesion with an associated large ju gulodigastric necrotic lymph node. These are both no longer present. No new mass lesions identified. 2. However, there is some edema within the tissue planes of the right neck. Findings may represent po st radiation changes. 3. Mild chronic sinus disease in the inferior aspect of both maxillary antra, right greater than left . Jd Hensley MD on March 23, 2018 at 15:28 Board Certified Radiologist. This report was verified electronically.
[2018-03-23] MEDS ORDERED: DEXAMETHASONE SOD PHOS 20 MG/5 ML VIAL IV PUSH ONE (16:45)
[2018-03-23] MEDS ORDERED: MORPHINE SULFATE 4 MG/ML INJ IV PUSH ONE (17:00)
[2018-03-23] MEDS ORDERED: ONDANSETRON HCL 4 MG/2 ML VIAL IV PUSH ONE (17:00)
[2018-03-23] MEDS ORDERED: SODIUM CHLORIDE 0.9% FLUSH 10 ML FLUSH IV FLUSH PRN (17:30)
--- NOTE | 2018-03-23 17:41 | HHI.HP ---
HPI Service Critical Care Medicine Primary Care Physician Unknown Admission Diagnosis Sublingual Swelling. Diagnosis: (1) Disorder of upper airway Diagnosis: Principal (2) Head and neck malignancy (3) Thrombocytopenia Diagnosis: Secondary (4) Alcoholic liver disease Diagnosis: Secondary Chief Complaint: My ears are all plugged up. Travel History International Travel<30 Days: No Contact w/Intl Traveler <30 Da: No Traveled to Known Affected Are: No History of Present Illness This 62-year-old gentleman is a resident from the [facility]. 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 He has had 2 tracheostomies in the past and presently has in place his second PEG tube. He presents today with a complaint that his ears are plugged up and need to be drained however on arrival it becomes apparent that he has a markedly narrowed supraglottic airway and CAT scan confirms this. He was seen on our service in October 2016 at which time he required tracheostomy because of the obstruction of his pharyngeal mass to his airway. That trach is now removed and the opening is sealed. 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 He appears alert and conversant although hard of hearing, but his answers to questions are quite simple and concrete. I suspect between his chronic alcoholism and myelinosis he probably has suffered some declining cognition. He is quite adamant that he does not want another tracheostomy tube nor to be intubated again. His airway at present is clearly in jeopardy and we will admit him immediately, start steroids and as needed racemic epinephrine. I see no signs of infection. It will be hard for him to avoid a permanent tracheostomy. Review of Systems ROS He states he moves air fine and does not have trouble with his breathing. He has no chest pain or shortness of breath. He repeatedly states that his only problem is his plugged up the ears Past Family Social History Allergies: Coded Allergies: peanut (Verified Allergy, Severe, RASH, 03/23/18) Fish Containing Products (Verified Allergy, Mild, Rash, 03/23/18) chicken derived (Verified Allergy, Mild, Rash, 03/23/18) Past Medical History Past Medical History Anxiety: No Depression: Yes Cancer: Yes (laryngeal CA ) Cardiovascular Problems: No Chemotherapy: No Cerebrovascular Accident: Yes (Bilateral thalamic stroke) Diminished Hearing: No Endocrine: No Gastrointestinal Disorders: Yes (liver disease, malnutrition) Genitourinary: Yes (reoccuring UTI/MDRO) Immune Disorder: No Insomnia: Yes Musculoskeletal: No Neurologic: Yes (central pontine myelinolysis) Psychiatric: Yes (ETOH ABUSE IN THE PAST) Reproductive: No Respiratory: Yes (pna, chronic resp failure, trach ) Radiation Therapy: No Seizures: Yes Tetanus Vaccination: < 5 Years Influenza Vaccination: Yes Past Surgical History Abdominal Surgery: Yes (hernia, peg placement ) AICD: No Body Medical Devices: PEG TUBE, TRACH Neurologic Surgery: Yes (pt states brain sx) Pacemaker: No Social History Alcohol Use: No Tobacco Use: No Substance Use: Yes (hx ETOH abuse ) Allergies-Medications Allergies-Medications (Allergen,Severity, Reaction): Coded Allergies: peanut (Verified Allergy, Severe, RASH, 03/23/18) Fish Containing Products (Verified Allergy, Mild, Rash, 03/23/18) chicken derived (Verified Allergy, Mild, Rash, 03/23/18) Reported Meds & Prescriptions Reported Meds & Active Scripts Active Reported Zofran (Ondansetron HCl) 8 Mg Tab 8 Mg G-TUBE Q6HR Trazodone (Trazodone HCl) 100 Mg Tablet 100 Mg G-TUBE HS Remeron (Mirtazapine) 15 Mg Tab 15 Mg G-TUBE HS Thiamine HCl 100 Mg Tablet 1 Tab G-TUBE DAILY Oxycodone (Oxycodone HCl) 10 Mg Tab 10 Mg PO Q4HR Oxycodone (Oxycodone HCl) 10 Mg Tab 10 Mg PO Q4HR Multi Vitamin and Mineral (Multiple Vitamins W/ Minerals) 7.5 Mg Iron-400 Mcg Tab 1 Tab PEG DAILY Melatonin 5 Mg Tab 6 Mg PEG HS Lactulose Liq (Lactulose) 10 Gm/15 Ml Soln 30 Ml G-TUBE Q6H PRN Keppra (Levetiracetam) 1,000 Mg Tab 1,000 Mg G-TUBE BID Ferrous Sulfate 325 Mg (65 Mg Iron) Tablet 325 Mg G-TUBE DAILY Fentanyl Patch 72 HR (Fentanyl) 50 Mcg/Hr Patch 50 Mcg T-DERMAL Q72H Remove old patch when new one placed. Physical Exam Vital Signs Vital Signs Date Time Temp Pulse Resp B/P (MAP) Pulse Ox O2 Delivery O2 Flow Rate FiO2 03/23/18 17:24 97.9 84 16 108/75 (86) 98 03/23/18 17:14 98.2 83 16 126/73 (90) 96 Room Air 03/23/18 17:14 16 03/23/18 16:02 97.8 83 16 126/73 (90) 99 Room Air 03/23/18 13:51 97 Room Air 03/23/18 13:51 82 17 97 Room Air 03/23/18 13:45 89 17 97 Room Air 03/23/18 13:42 99.1 96 16 131/88 (102) 98 Physical Exam Pulse 83, blood pressure 126/73, respiratory rate 14 and mildly labored, oxygen saturation is 98% on room air. Head and neck: I auscultate moderately obstructive noises with respiration in the neck. There is firm post radiated tissue in the neck and submental region. None of this is tender. Lungs: Clear bilaterally, no wheezes or crackles, no adventitious sounds. There are transmitted obstructive noises from the upper airway. Heart: Normal S1-S2, regular rate and rhythm, no murmur or rub, no jugular venous distention though veins difficult to assess. Abdomen: PEG tube in place in mid upper abdomen clean dry. Abdomen nontender, nondistended, no guarding. Bowel sounds active. Extremities: Warm, well perfused. Neuro: Speech is loud and hoarse. Cranial nerves II through XII are intact and symmetrical. He is alert and oriented 3. His thought processes quite simple and concrete. He moves 4 extremities to command. Laboratory Laboratory Tests Test 03/23/18 13:58 White Blood Count 4.6 Red Blood Count 3.62 Hemoglobin 10.9 Hematocrit 32.1 Mean Corpuscular Volume 88.8 Mean Corpuscular Hemoglobin 30.2 Mean Corpuscular Hemoglobin Concent 34.0 Red Cell Distribution Width 14.7 Platelet Count 93 Mean Platelet Volume 7.3 Neutrophils (%) (Auto) 76.1 Lymphocytes (%) (Auto) 11.9 Monocytes (%) (Auto) 7.6 Eosinophils (%) (Auto) 3.7 Basophils (%) (Auto) 0.7 Neutrophils # (Auto) 3.5 Lymphocytes # (Auto) 0.6 Monocytes # (Auto) 0.4 Eosinophils # (Auto) 0.2 Basophils # (Auto) 0.0 CBC Comment AUTO DIFF Differential Comment AUTO DIFF CONFIRMED Prothrombin Time 11.3 Prothromb Time International Ratio 1.1 Activated Partial Thromboplast Time 27.0 Blood Urea Nitrogen 14 Creatinine 0.73 Random Glucose 132 Total Protein 7.5 Albumin 3.5 Calcium Level 9.3 Magnesium Level 1.9 Alkaline Phosphatase 170 Aspartate Amino Transf (AST/SGOT) 47 Alanine Aminotransferase (ALT/SGPT) 41 Total Bilirubin 0.9 Sodium Level 136 Potassium Level 4.4 Chloride Level 101 Carbon Dioxide Level 29.7 Anion Gap 5 Estimat Glomerular Filtration Rate 110 Result Diagram: 03/23/18 1358 03/23/18 1358 Caprini VTE Risk Assessment Caprini VTE Risk Assessment: Mod/High Risk (score >= 2) VTE Pharm Contraindication: High risk for bleeding Caprini Risk Assessment Model Point Value = 1 Point Value = 2 Point Value = 3 Point Value = 5 Age 41-60 Minor surgery BMI > 25 kg/m2 Swollen legs Varicose veins or History of unexplained or recurrent spontaneous Oral contraceptives or hormone replacement Sepsis (< 1 month) Serious lung disease, including pneumonia (< 1 month) Abnormal pulmonary function Acute myocardial infarction Congestive heart failure (< 1 month) History of inflammatory bowel disease Medical patient at bed rest Age 61-74 Arthroscopic surgery Major open surgery (> 45 min) Laparoscopic surgery (> 45 min) Malignancy Confined to bed (> 72 hours) Immobilizing plaster cast Central venous access Age >= 75 History of VTE Family history of VTE Factor V Leiden Prothrombin [id number] Lupus anticoagulant Anticardiolipin antibodies Elevated serum homocysteine Heparin-induced thrombocytopenia Other congenital or acquired thrombophilia Stroke (< 1 month) Elective arthroplasty Hip, pelvis, or leg fracture Acute spinal cord injury (< 1 month) Prophylaxis Regimen Total Risk Factor Score Risk Level Prophylaxis Regimen 0-1 Low Early ambulation 2 Moderate Order ONE of the following: *Sequential Compression Device (SCD) *Heparin 5000 units SQ BID 3-4 Higher Order ONE of the following medications: *Heparin 5000 units SQ TID *Enoxaparin/Lovenox 40 mg SQ daily (WT < 150 kg, CrCl > 30 mL/min) *Enoxaparin/Lovenox 30 mg SQ daily (WT < 150 kg, CrCl > 10-29 mL/min) *Enoxaparin/Lovenox 30 mg SQ BID (WT < 150 kg, CrCl > 30 mL/min) AND/OR *Sequential Compression Device (SCD) 5 or more Highest Order ONE of the following medications: *Heparin 5000 units SQ TID (Preferred with Epidurals) *Enoxaparin/Lovenox 40 mg SQ daily (WT < 150 kg, CrCl > 30 mL/min) *Enoxaparin/Lovenox 30 mg SQ daily (WT < 150 kg, CrCl > 10-29 mL/min) *Enoxaparin/Lovenox 30 mg SQ BID (WT < 150 kg, CrCl > 30 mL/min) AND *Sequential Compression Device (SCD) Assessment and Plan Assessment and Plan Assessment: 1. Supraglottic airway obstruction, acute on chronic. 2. Laryngeal malignancy. 3. PEG tube in place. 4. Tracheostomy tube has been removed. 5. Status post radiation therapy to the neck. 6. Status post chronic alcoholism with hepatic cirrhosis. 7. Status post central pontine demyelinization. Plan: 1. Admit ICU. 2. Head of bed of 30. Airway precautions. 3. Racemic epinephrine 2.25% as needed obstruction. 4. Decadron 10 mg IV every 6 hours. 5. N.p.o., tube feeds through PEG tube Jevity 1.5. 6. Pepcid for GI ulcer prophylaxis. 7. Hold chemical DVT prophylaxis to minimize risk of unnecessary bleeding should he require intubation. 8. SCDs for DVT prophylaxis. 9. Continue his long-term narcotic regimen Overall impression: This gentleman is critically ill with a compromised supraglottic airway. At the present time he is adamant against tracheostomy or intubation. He took this same stance in October when we last saw him but ultimately agreed to a tracheostomy. I suspect he will come to that again. After review of the CAT scans it appears that he could be intubated from above with a 7 mm tube should that become necessary. He has been seen in the past by Dr. Dunn and Dr. Zuniga. Critical care time 38 minutes David Santiago MD Mar 23, 2018 17:41
[2018-03-23] MEDS: LACTULOSE SYRUP 20 GM/30 ML CUP G-TUBE SCH (18:00)
[2018-03-23] MEDS: ONDANSETRON ODT 4 MG TAB SCH (18:30)
[2018-03-23] MEDS: fentaNYL 50 MCG/HR PATCH T-DERMAL SCH (18:30)
[2018-03-23] MEDS: MELATONIN 5 MG TAB PO SCH (20:37)
[2018-03-23] MEDS: traZODone HCL 100 MG TAB G-TUBE SCH (20:38)
[2018-03-23] MEDS: levETIRAcetam 500 MG/5 ML UDC G-TUBE SCH (20:38)
[2018-03-23] MEDS: MIRTAZAPINE 15 MG TAB G-TUBE SCH (20:38)
[2018-03-23] MEDS: SODIUM CHLORIDE 0.9% FLUSH 10 ML FLUSH IV FLUSH SCH (20:38)
--- NOTE | 2018-03-23 23:59 | EKG ---
Date Performed: 03/23/2018 Time Performed: 13:55:22 PTAGE: 62 years EKG: Sinus rhythm LOW QRS VOLTAGE IN PRECORDIAL LEADS BORDERLINE ECG PREVIOUS TRACING : 10/03/2017 11.38 Since the previous tracing, no significant change noted DOCTOR: Marlon Sal Interpretating Date/Time 03/23/2018 23:58:52
[2018-03-24] VITALS (13 sets, daily range): BP systolic 93–124; BP diastolic 54–68; PULSE 67–82; RESP 14–19; TEMP 98.1–98.6; O2SAT 95–99
[2018-03-24] MEDS ORDERED: CHLORHEXIDINE GLUCONATE 2 % 1 PACK (2 CLOTHS)(extra cloths) TOPICAL PRN (00:15)
[2018-03-24] MEDS: CHLORHEXIDINE GLUCONATE 2 % 1 PACK (2 CLOTHS)(taper/protocol) TOPICAL SCH (04:00)
[2018-03-24] MEDS: ONDANSETRON ODT 4 MG TAB SCH ×4 (05:25→17:08)
[2018-03-24] MEDS: LACTULOSE SYRUP 20 GM/30 ML CUP G-TUBE SCH ×4 (05:25→17:08)
--- NOTE | 2018-03-24 06:48 | PD.CONS ---
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 Biopsy in November, treated with radiation therapy in December to January of this year. Has has a tracheostomy for respiratory issues in the past. Required tracheostomy and feeding tube for this treatment. The tracheotomy became dislodged and was left out several weeks ago. He presents now with submental edema, hoarseness, mild airway obstruction. No fever, no elevated WBC. Improved after admission and treatment with IV steroids. Review of Systems Ears, nose, mouth, throat: COMPLAINS OF: Hoarseness, DENIES: Nasal discharge, Oral lesions, Throat pain Past Family Social History Allergies: Coded Allergies: peanut (Verified Allergy, Severe, RASH, 03/23/18) Fish Containing Products (Verified Allergy, Mild, Rash, 03/23/18) chicken derived (Verified Allergy, Mild, Rash, 03/23/18) Physical Exam Vital Signs Vital Signs Date Time Temp Pulse Resp B/P (MAP) Pulse Ox O2 Delivery O2 Flow Rate FiO2 03/24/18 06:00 70 03/24/18 05:08 16 03/24/18 04:00 98.1 82 17 124/68 (86) 98 03/24/18 04:00 82 03/24/18 02:00 77 03/24/18 00:00 82 03/24/18 00:00 98.3 82 16 93/54 (67) 98 03/23/18 22:00 88 03/23/18 20:00 91 03/23/18 20:00 98.5 91 16 120/74 (89) 93 03/23/18 19:30 16 03/23/18 18:00 98.9 84 18 117/66 (83) 96 03/23/18 18:00 84 03/23/18 17:24 97.9 84 16 108/75 (86) 98 03/23/18 17:14 98.2 83 16 126/73 (90) 96 Room Air 03/23/18 17:14 16 03/23/18 16:02 97.8 83 16 126/73 (90) 99 Room Air 03/23/18 13:51 97 Room Air 03/23/18 13:51 82 17 97 Room Air 03/23/18 13:45 89 17 97 Room Air 03/23/18 13:42 99.1 96 16 131/88 (102) 98 Physical Exam GENERAL: This is a well-nourished, well-developed patient, in no apparent distress. SKIN: No rashes, ecchymoses or lesions. Cool and dry. HEAD: Atraumatic. Normocephalic. No temporal or scalp tenderness. EYES: Pupils equal round and reactive. Extraocular motions intact. No scleral icterus. No injection or drainage. ENT: Nose without bleeding, purulent drainage or septal hematoma. Throat without erythema, tonsillar hypertrophy or exudate. Uvula midline. Airway patent. NECK: Trachea midline. Old trach scar. Submental edema. No fluctuance. NEUROLOGICAL: Awake and alert. Normal speech. Laboratory Laboratory Tests Test 03/23/18 13:58 03/23/18 18:29 White Blood Count 4.6 Red Blood Count 3.62 Hemoglobin 10.9 Hematocrit 32.1 Mean Corpuscular Volume 88.8 Mean Corpuscular Hemoglobin 30.2 Mean Corpuscular Hemoglobin Concent 34.0 Red Cell Distribution Width 14.7 Platelet Count 93 Mean Platelet Volume 7.3 Neutrophils (%) (Auto) 76.1 Lymphocytes (%) (Auto) 11.9 Monocytes (%) (Auto) 7.6 Eosinophils (%) (Auto) 3.7 Basophils (%) (Auto) 0.7 Neutrophils # (Auto) 3.5 Lymphocytes # (Auto) 0.6 Monocytes # (Auto) 0.4 Eosinophils # (Auto) 0.2 Basophils # (Auto) 0.0 CBC Comment AUTO DIFF Differential Comment AUTO DIFF CONFIRMED Prothrombin Time 11.3 Prothromb Time International Ratio 1.1 Activated Partial Thromboplast Time 27.0 Blood Urea Nitrogen 14 Creatinine 0.73 Random Glucose 132 Total Protein 7.5 Albumin 3.5 Calcium Level 9.3 Magnesium Level 1.9 Alkaline Phosphatase 170 Aspartate Amino Transf (AST/SGOT) 47 Alanine Aminotransferase (ALT/SGPT) 41 Total Bilirubin 0.9 Sodium Level 136 Potassium Level 4.4 Chloride Level 101 Carbon Dioxide Level 29.7 Anion Gap 5 Estimat Glomerular Filtration Rate 110 Nasal Screen MRSA (PCR) MRSA DETECTED Result Diagram: 03/23/18 1358 03/23/[address] reviewed. Previous mass resolved. Consistent with post radiation edema. Assessment and Plan Assessment and Plan 62 year old male, treated with radiation therapy for right pharyngeal carcinoma. Edema is most consistent with post radiation edema. There is no elevated WBC and no fever. The timing, several weeks after finishing treatment is consistent with this. Would recommend you consult Dr Zuniga for his input. Steroids are helping. Can continue IV for another 24 hours and then consider outpatient steroid taper. His airway is currently stable and he does not desire any intubation. Need to clarify this with him in the event he has trouble in the future. Dr Willingham did his biopsy initially and can be available to follow as an outpatient with Oncology. OK to feed through PEG per ENT. ENT follow up PRN. Miguel May MD Mar 24, 2018 06:48
--- NOTE | 2018-03-24 07:28 | HHI.CCPN ---
Subjective Remarks/Hospital Course This 62-year-old gentleman is a resident from the [facility]. 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 He has had 2 tracheostomies in the past and presently has in place his second PEG tube. He presents today with a complaint that his ears are plugged up and need to be drained however on arrival it becomes apparent that he has a markedly narrowed supraglottic airway and CAT scan confirms this. He was seen on our service in October 2016 at which time he required tracheostomy because of the obstruction of his pharyngeal mass to his airway. That trach is now removed and the opening is sealed. 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 He appears alert and conversant although hard of hearing, but his answers to questions are quite simple and concrete. I suspect between his chronic alcoholism and myelinosis he probably has suffered some declining cognition. He is quite adamant that he does not want another tracheostomy tube nor to be intubated again. His airway at present is clearly in jeopardy and we will admit him immediately, start steroids and as needed racemic epinephrine. I see no signs of infection. It will be hard for him to avoid a permanent tracheostomy. 03/24 Patient is lying in bed in [facility]. Objective Vital Signs Date Time Temp Pulse Resp B/P (MAP) Pulse Ox O2 Delivery O2 Flow Rate FiO2 03/24/18 06:00 70 03/24/18 05:08 16 03/24/18 04:00 98.1 124/68 (86) 98 03/23/18 17:14 Room Air Intake and Output 03/24/18 03/24/18 03/24/18 07:59 15:59 23:59 Intake Total 120 ml Output Total 550 ml Balance -430 ml Result Diagram: 03/23/18 1358 03/23/18 1358 Other Results Last Impressions Chest X-Ray 03/23/18 1346 Signed Impressions: Service Date/Time: Friday, March 23, 2018 14:02 - CONCLUSION: No acute cardiopulmonary process Jd Hensley MD Neck CT 03/23/18 0000 Signed Impressions: Service Date/Time: Friday, March 23, 2018 15:04 - CONCLUSION: 1. A. October 2017, patient had a large right parapharyngeal mass lesion with an associated large jugulodigastric necrotic lymph node. These are both no longer present. No new mass lesions identified. 2. However, there is some edema within the tissue planes of the right neck. Findings may represent post radiation changes. 3. Mild chronic sinus disease in the inferior aspect of both maxillary antra, right greater than left. Jd Hensley MD Objective Remarks GENERAL: Patient is lying in bed in NAD SKIN: Warm and dry. HEAD: Normocephalic. EYES: No scleral icterus. No injection or drainage. NECK: Supple, trachea midline. No JVD or lymphadenopathy. CARDIOVASCULAR: Regular rate and rhythm without murmurs, gallops, or rubs. RESPIRATORY: Breath sounds equal bilaterally. No accessory muscle use. GASTROINTESTINAL: PEG tube in place in mid upper abdomen clean dry. Abdomen nontender, nondistended, no guarding. Bowel sounds active. MUSCULOSKELETAL: No cyanosis, or edema. Neuro: Speech is loud and hoarse. Cranial nerves II through XII are intact and symmetrical. He is alert and oriented 3. A/P Assessment and Plan 1)Resp Insuff 2)Supraglottic airway obstruction, acute on chronic. 3)Laryngeal malignancy. Status post radiation therapy to the neck. 4)PEG tube in place. 5)Tracheostomy tube has been removed. Plan: Neuro: awake and alert On Thiamine 100mg daily, Keppra. Pulm: Continue with oxygen keep sats >92% Bronchodilators, Head of bed of 30. Airway precautions. Resume Decadron 10 mg IV every 6 hours. Seen by ENT- Dr. May- continue steroids for now Consult rad Onc CV: Monitor HR and BP keep MAP>65mmHg : Monitor renal function, electrolytes replacement per protocol Place on NS@75ml/hr GI: Start tube feeds via PEG tube- Glucerna 1.5 with goal rate 45ml/hr Pepcid for GI ulcer prophylaxis. ID: Monitor for signs of infections ( Fever, WBC) Heme: Monitor CBC, On Ferrous sulfate 325mg daily Endo: SSI for glycemic control as patient is on IV steroids Hold chemical DVT prophylaxis to minimize risk of unnecessary bleeding should he require intubation. SCDs for DVT prophylaxis. Follow up on labd Level 2 Meir Garcia MD Mar 24, 2018 07:28
[2018-03-24] MEDS: THIAMINE HCL 100 MG TAB G-TUBE SCH (08:07)
[2018-03-24] MEDS: FERROUS SULFATE 325 MG (65 MG ELEMENTAL IRON) TAB PO SCH (08:07)
[2018-03-24] MEDS: levETIRAcetam 500 MG/5 ML UDC G-TUBE SCH ×2 (08:08→20:49)
[2018-03-24] MEDS: SODIUM CHLORIDE 0.9% FLUSH 10 ML FLUSH IV FLUSH SCH ×2 (08:08→20:47)
[2018-03-24] MEDS: FAMOTIDINE 20 MG/2 ML VIAL IV PUSH SCH ×2 (08:18→20:47)
[2018-03-24] MEDS: DEXAMETHASONE SOD PHOS 20 MG/5 ML VIAL IV PUSH SCH ×3 (08:18→17:08)
[2018-03-24] MEDS: SODIUM CHLOR 0.9% 1000 ML INJ 1,000 ML IV SCH ×2 (08:23→20:00)
[2018-03-24 08:32] LABS: AUTOMATED NEUTROPHIL # 4.6 TH/MM3 (1.8-7.7); BASOPHIL % 0.9 % (0.0-2.0); EOSINOPHIL % 0.1 % (0.0-4.0); HEMATOCRIT 29.5 % (39.0-51.0); HEMOGLOBIN 10.4 GM/DL (13.0-17.0); LYMPH % 10.2 % (9.0-44.0); LYMPHOCYTE # 0.6 TH/MM3 (1.0-4.8); MEAN CELL VOLUME 88.1 FL (80.0-100.0); MEAN CORPUSCULAR HGB CONC 35.2 % (32.0-36.0); MEAN PLATELET VOLUME 7.7 FL (7.0-11.0); MONO % 4.5 % (0.0-8.0); MONOCYTE # 0.2 TH/MM3 (0-0.9); NEUT % 84.3 % (16.0-70.0); PLATELET COUNT 90 TH/MM3 (150-450); RED BLOOD COUNT 3.34 MIL/MM3 (4.50-5.90); RED CELL DISTRIBUTION WIDTH 14.4 % (11.6-17.2); WHITE BLOOD COUNT 5.4 TH/MM3 (4.0-11.0)
[2018-03-24 08:49] LABS: ALBUMIN 3.1 GM/DL (3.4-5.0); AST (GOT) 29 U/L (15-37); BICARBONATE 27.8 MEQ/L (21.0-32.0); BLOOD UREA NITROGEN 16 MG/DL (7-18); CALCIUM 9.2 MG/DL (8.5-10.1); CHLORIDE 102 MEQ/L (98-107); CREATININE 0.56 MG/DL (0.60-1.30); GLOMERULAR FILTRATION RATE 149 ML/MIN (>89); GLUCOSE,RANDOM 108 MG/DL (74-106); SODIUM (NA) 138 MEQ/L (136-145)
[2018-03-24 08:52] LABS: ALKALINE PHOSPHATASE 147 U/L (45-117); ALT (GPT) 34 U/L (12-78); TOTAL BILIRUBIN ADULT 0.9 MG/DL (0.2-1.0); TOTAL PROTEIN 6.8 GM/DL (6.4-8.2)
[2018-03-24] MEDS: MELATONIN 5 MG TAB PO SCH (20:46)
[2018-03-24] MEDS: MIRTAZAPINE 15 MG TAB G-TUBE SCH (20:46)
[2018-03-24] MEDS: traZODone HCL 100 MG TAB G-TUBE SCH (20:46)
[2018-03-25] VITALS (12 sets, daily range): BP systolic 101–131; BP diastolic 57–87; PULSE 58–74; RESP 14–42; TEMP 98.2–98.6; O2SAT 98–100
[2018-03-25] MEDS: LACTULOSE SYRUP 20 GM/30 ML CUP G-TUBE SCH ×4 (00:27→17:07)
[2018-03-25] MEDS: DEXAMETHASONE SOD PHOS 20 MG/5 ML VIAL IV PUSH SCH ×4 (00:27→17:07)
[2018-03-25] MEDS: ONDANSETRON ODT 4 MG TAB SCH ×4 (00:31→17:07)
[2018-03-25] MEDS: CHLORHEXIDINE GLUCONATE 2 % 1 PACK (2 CLOTHS)(taper/protocol) TOPICAL SCH (04:00)
[2018-03-25 04:04] LABS: BASOPHIL % 0.1 % (0.0-2.0); EOSINOPHIL % 0.1 % (0.0-4.0); HEMATOCRIT 29.7 % (39.0-51.0); HEMOGLOBIN 10.3 GM/DL (13.0-17.0); LYMPH % 7.3 % (9.0-44.0); LYMPHOCYTE # 0.4 TH/MM3 (1.0-4.8); MEAN CELL VOLUME 89.2 FL (80.0-100.0); MEAN CORPUSCULAR HEMOGLOBIN 30.8 PG (27.0-34.0); MEAN CORPUSCULAR HGB CONC 34.5 % (32.0-36.0); MEAN PLATELET VOLUME 7.4 FL (7.0-11.0); MONO % 2.3 % (0.0-8.0); MONOCYTE # 0.1 TH/MM3 (0-0.9); NEUT % 90.2 % (16.0-70.0); PLATELET COUNT 82 TH/MM3 (150-450); RED BLOOD COUNT 3.33 MIL/MM3 (4.50-5.90); RED CELL DISTRIBUTION WIDTH 14.1 % (11.6-17.2); WHITE BLOOD COUNT 5.5 TH/MM3 (4.0-11.0)
[2018-03-25 04:09] LABS: ALBUMIN 3.1 GM/DL (3.4-5.0); ALT (GPT) 38 U/L (12-78); AST (GOT) 28 U/L (15-37); BICARBONATE 27.4 MEQ/L (21.0-32.0); BLOOD UREA NITROGEN 19 MG/DL (7-18); CALCIUM 8.7 MG/DL (8.5-10.1); CHLORIDE 105 MEQ/L (98-107); CREATININE 0.67 MG/DL (0.60-1.30); GLOMERULAR FILTRATION RATE 121 ML/MIN (>89); GLUCOSE,RANDOM 142 MG/DL (74-106); SODIUM (NA) 140 MEQ/L (136-145)
[2018-03-25 04:12] LABS: ALKALINE PHOSPHATASE 138 U/L (45-117); TOTAL BILIRUBIN ADULT 0.6 MG/DL (0.2-1.0); TOTAL PROTEIN 6.7 GM/DL (6.4-8.2)
[2018-03-25] MEDS: SODIUM CHLOR 0.9% 1000 ML INJ 1,000 ML IV SCH (05:41)
--- NOTE | 2018-03-25 07:21 | HHI.CCPN ---
Subjective Remarks/Hospital Course This 62-year-old gentleman is a resident from the [facility]. 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 He has had 2 tracheostomies in the past and presently has in place his second PEG tube. He presents today with a complaint that his ears are plugged up and need to be drained however on arrival it becomes apparent that he has a markedly narrowed supraglottic airway and CAT scan confirms this. He was seen on our service in October 2016 at which time he required tracheostomy because of the obstruction of his pharyngeal mass to his airway. That trach is now removed and the opening is sealed. 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 He appears alert and conversant although hard of hearing, but his answers to questions are quite simple and concrete. I suspect between his chronic alcoholism and myelinosis he probably has suffered some declining cognition. He is quite adamant that he does not want another tracheostomy tube nor to be intubated again. His airway at present is clearly in jeopardy and we will admit him immediately, start steroids and as needed racemic epinephrine. I see no signs of infection. It will be hard for him to avoid a permanent tracheostomy. 03/24 Patient is lying in bed in [facility]. 03/25 No events overnight. Awake and alert looks comfortable. On 3L oxygen with good sats, feeling better. Objective Vital Signs Date Time Temp Pulse Resp B/P (MAP) Pulse Ox O2 Delivery O2 Flow Rate FiO2 03/25/18 06:00 62 03/25/18 04:00 98.3 42 116/64 (81) 98 03/24/18 22:36 Nasal Cannula 3.00 Intake and Output 03/25/18 03/25/18 03/26/18 08:00 16:00 00:00 Output Total 1500 ml Balance -1500 ml Result Diagram: 03/25/18 0310 03/25/18 0310 Other Results Last Impressions Chest X-Ray 03/23/18 1346 Signed Impressions: Service Date/Time: Friday, March 23, 2018 14:02 - CONCLUSION: No acute cardiopulmonary process Jd Hensley MD Neck CT 03/23/18 0000 Signed Impressions: Service Date/Time: Friday, March 23, 2018 15:04 - CONCLUSION: 1. A. October 2017, patient had a large right parapharyngeal mass lesion with an associated large jugulodigastric necrotic lymph node. These are both no longer present. No new mass lesions identified. 2. However, there is some edema within the tissue planes of the right neck. Findings may represent post radiation changes. 3. Mild chronic sinus disease in the inferior aspect of both maxillary antra, right greater than left. Jd Hensley MD Objective Remarks GENERAL: Patient is lying in bed in NAD SKIN: Warm and dry. HEAD: Normocephalic. EYES: No scleral icterus. No injection or drainage. NECK: Supple, trachea midline. No JVD or lymphadenopathy. CARDIOVASCULAR: Regular rate and rhythm without murmurs, gallops, or rubs. RESPIRATORY: Breath sounds equal bilaterally. No accessory muscle use. GASTROINTESTINAL: PEG tube in place in mid upper abdomen clean dry. Abdomen nontender, nondistended, no guarding. Bowel sounds active. MUSCULOSKELETAL: No cyanosis, or edema. Neuro: Speech is loud and hoarse. Cranial nerves II through XII are intact and symmetrical. He is alert and oriented 3. A/P Assessment and Plan 1)Resp Insuff 2)Supraglottic airway obstruction, acute on chronic. 3)Laryngeal malignancy. Status post radiation therapy to the neck. 4)PEG tube in place. 5)Tracheostomy tube has been removed. 6)Anemia 7)Thrombocytopenia Plan: Neuro: awake and alert On Thiamine 100mg daily, Keppra. Pulm: Continue with oxygen keep sats >92% Bronchodilators, Head of bed of 30. Airway precautions. Decadron 10 mg IV every 6 hours. Seen by ENT- Dr. May- continue steroids for now Consult rad Onc CV: Monitor HR and BP keep MAP>65mmHg : Monitor renal function, electrolytes replacement per protocol d/c IVF GI: On tube feeds via PEG tube- Glucerna 1.5 with goal rate 45ml/hr Pepcid for GI ulcer prophylaxis. ID: Monitor for signs of infections ( Fever, WBC) Heme: Monitor CBC Heme: Monitor CBC, On Ferrous sulfate 325mg daily Endo: SSI for glycemic control as patient is on IV steroids Not on chemical DVT prophylaxis due to thrombocytopenia SCDs for DVT prophylaxis. Level 2 Meir Garcia MD Mar 25, 2018 07:21
[2018-03-25] MEDS: FERROUS SULFATE 325 MG (65 MG ELEMENTAL IRON) TAB PO SCH (07:40)
[2018-03-25] MEDS: THIAMINE HCL 100 MG TAB G-TUBE SCH (07:40)
[2018-03-25] MEDS: SODIUM CHLORIDE 0.9% FLUSH 10 ML FLUSH IV FLUSH SCH ×2 (07:41→20:29)
[2018-03-25] MEDS: levETIRAcetam 500 MG/5 ML UDC G-TUBE SCH ×2 (07:41→20:28)
[2018-03-25] MEDS: FAMOTIDINE 20 MG/2 ML VIAL IV PUSH SCH (07:41)
--- NOTE | 2018-03-25 09:41 | RF ---
cc: Niall Zuniga MD DATE OF SERVICE: SUBJECTIVE: Mr. Sandhu is a 62-year-old male who completed combined chemoradiation therapy 70 Gy total. Completed several weeks ago, now with edema anterior neck consistent with posterior changes. Recent CT soft tissue neck no evidence of disease and I reviewed and agree no evidence of disease. Some submental anterior neck swelling. Seen as an inpatient today. We will schedule a followup as previously scheduled as outpatient. Thank you for involving me in the care. We reassured him with no evidence of disease, as well. 70 Gy completed 01/20/2018. Received concurrent chemotherapy. ENT, Dr. Justino Willingham. PLAN: Followup outpatient schedule. Niall Zuniga MD BAF/TL , 06:31 PM , 09:41 AM MTDD
[2018-03-25] MEDS: MELATONIN 5 MG TAB PO SCH (20:29)
[2018-03-25] MEDS: traZODone HCL 100 MG TAB G-TUBE SCH (20:29)
[2018-03-25] MEDS: MIRTAZAPINE 15 MG TAB G-TUBE SCH (20:29)
[2018-03-25] MEDS: FAMOTIDINE 20 MG TAB PO SCH (20:30)
[2018-03-26] VITALS (12 sets, daily range): BP systolic 121–134; BP diastolic 66–71; PULSE 53–67; RESP 13–17; TEMP 97.3–98.7; O2SAT 97–100
[2018-03-26] MEDS: DEXAMETHASONE SOD PHOS 20 MG/5 ML VIAL IV PUSH SCH ×4 (00:21→18:30)
[2018-03-26] MEDS: ONDANSETRON ODT 4 MG TAB SCH ×4 (00:21→18:28)
[2018-03-26] MEDS: LACTULOSE SYRUP 20 GM/30 ML CUP G-TUBE SCH ×4 (00:22→18:31)
[2018-03-26] MEDS: CHLORHEXIDINE GLUCONATE 2 % 1 PACK (2 CLOTHS)(taper/protocol) TOPICAL SCH (00:22)
[2018-03-26 05:27] LABS: AUTOMATED NEUTROPHIL # 4.9 TH/MM3 (1.8-7.7); BASOPHIL % 0.1 % (0.0-2.0); HEMATOCRIT 29.1 % (39.0-51.0); HEMOGLOBIN 10.2 GM/DL (13.0-17.0); LYMPH % 6.3 % (9.0-44.0); LYMPHOCYTE # 0.3 TH/MM3 (1.0-4.8); MEAN CELL VOLUME 88.6 FL (80.0-100.0); MEAN CORPUSCULAR HEMOGLOBIN 31.1 PG (27.0-34.0); MEAN PLATELET VOLUME 7.5 FL (7.0-11.0); MONO % 2.5 % (0.0-8.0); MONOCYTE # 0.1 TH/MM3 (0-0.9); NEUT % 91.1 % (16.0-70.0); PLATELET COUNT 73 TH/MM3 (150-450); RED BLOOD COUNT 3.28 MIL/MM3 (4.50-5.90); RED CELL DISTRIBUTION WIDTH 14.6 % (11.6-17.2); WHITE BLOOD COUNT 5.4 TH/MM3 (4.0-11.0)
[2018-03-26 05:44] LABS: BICARBONATE 25.8 MEQ/L (21.0-32.0); CALCIUM 8.6 MG/DL (8.5-10.1); CREATININE 0.68 MG/DL (0.60-1.30)
--- NOTE | 2018-03-26 07:34 | HHI.CCPN ---
Subjective Remarks/Hospital Course This 62-year-old gentleman is a resident from the [facility]. 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 He has had 2 tracheostomies in the past and presently has in place his second PEG tube. He presents today with a complaint that his ears are plugged up and need to be drained however on arrival it becomes apparent that he has a markedly narrowed supraglottic airway and CAT scan confirms this. He was seen on our service in October 2016 at which time he required tracheostomy because of the obstruction of his pharyngeal mass to his airway. That trach is now removed and the opening is sealed. 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 He appears alert and conversant although hard of hearing, but his answers to questions are quite simple and concrete. I suspect between his chronic alcoholism and myelinosis he probably has suffered some declining cognition. He is quite adamant that he does not want another tracheostomy tube nor to be intubated again. His airway at present is clearly in jeopardy and we will admit him immediately, start steroids and as needed racemic epinephrine. I see no signs of infection. It will be hard for him to avoid a permanent tracheostomy. 03/24 Patient is lying in bed in [facility]. 03/25 No events overnight. Awake and alert looks comfortable. On 3L oxygen with good sats, feeling better. 03/26 Patient is lying in bed in NAD. Objective Vital Signs Date Time Temp Pulse Resp B/P (MAP) Pulse Ox O2 Delivery O2 Flow Rate FiO2 03/26/18 06:00 66 03/26/18 04:00 98.6 15 122/67 (85) 98 03/24/18 22:36 Nasal Cannula 3.00 Intake and Output 03/26/18 03/26/18 03/27/18 08:00 16:00 00:00 Output Total 1450 ml Balance -1450 ml Result Diagram: 03/26/18 0455 03/26/18 0455 Other Results Laboratory Tests Test 03/26/18 04:55 White Blood Count 5.4 TH/MM3 Red Blood Count 3.28 MIL/MM3 Hemoglobin 10.2 GM/DL Hematocrit 29.1 % Mean Corpuscular Volume 88.6 FL Mean Corpuscular Hemoglobin 31.1 PG Mean Corpuscular Hemoglobin Concent 35.0 % Red Cell Distribution Width 14.6 % Platelet Count 73 TH/MM3 Mean Platelet Volume 7.5 FL Neutrophils (%) (Auto) 91.1 % Lymphocytes (%) (Auto) 6.3 % Monocytes (%) (Auto) 2.5 % Eosinophils (%) (Auto) 0.0 % Basophils (%) (Auto) 0.1 % Neutrophils # (Auto) 4.9 TH/MM3 Lymphocytes # (Auto) 0.3 TH/MM3 Monocytes # (Auto) 0.1 TH/MM3 Eosinophils # (Auto) 0.0 TH/MM3 Basophils # (Auto) 0.0 TH/MM3 CBC Comment AUTO DIFF Differential Comment AUTO DIFF CONFIRMED Platelet Estimate LOW Platelet Morphology Comment NORMAL Blood Urea Nitrogen 19 MG/DL Creatinine 0.68 MG/DL Random Glucose 133 MG/DL Calcium Level 8.6 MG/DL Sodium Level 136 MEQ/L Potassium Level 4.1 MEQ/L Chloride Level 102 MEQ/L Carbon Dioxide Level 25.8 MEQ/L Anion Gap 8 MEQ/L Estimat Glomerular Filtration Rate 119 ML/MIN Imaging Last Impressions Chest X-Ray 03/23/18 1346 Signed Impressions: Service Date/Time: Friday, March 23, 2018 14:02 - CONCLUSION: No acute cardiopulmonary process Jd Hensley MD Neck CT 03/23/18 0000 Signed Impressions: Service Date/Time: Friday, March 23, 2018 15:04 - CONCLUSION: 1. A. October 2017, patient had a large right parapharyngeal mass lesion with an associated large jugulodigastric necrotic lymph node. These are both no longer present. No new mass lesions identified. 2. However, there is some edema within the tissue planes of the right neck. Findings may represent post radiation changes. 3. Mild chronic sinus disease in the inferior aspect of both maxillary antra, right greater than left. Jd Hensley MD Objective Remarks GENERAL: Patient is lying in bed in NAD SKIN: Warm and dry. HEAD: Normocephalic. EYES: No scleral icterus. No injection or drainage. NECK: Supple, trachea midline. No JVD or lymphadenopathy. CARDIOVASCULAR: Regular rate and rhythm without murmurs, gallops, or rubs. RESPIRATORY: Breath sounds equal bilaterally. No accessory muscle use. GASTROINTESTINAL: PEG tube in place in mid upper abdomen clean dry. Abdomen nontender, nondistended, no guarding. Bowel sounds active. MUSCULOSKELETAL: No cyanosis, or edema. Neuro: Speech is loud and hoarse. Cranial nerves II through XII are intact and symmetrical. He is alert and oriented 3. A/P Assessment and Plan 1)Resp Insuff 2)Supraglottic airway obstruction, acute on chronic. 3)Laryngeal malignancy. Status post radiation therapy to the neck. 4)PEG tube in place. 5)Tracheostomy tube has been removed. 6)Anemia 7)Thrombocytopenia Plan: Neuro: awake and alert On Thiamine 100mg daily, Keppra. Pulm: Continue with oxygen keep sats >92% Bronchodilators, Head of bed of 30. Airway precautions. Decadron 10 mg IV every 6 hours. Seen by ENT- Dr. May- continue steroids for now Seen by Dr. mejía from Rad onc s/p Rad treatment on 01/2018 CV: Monitor HR and BP keep MAP>65mmHg : Monitor renal function, electrolytes replacement per protocol GI: On tube feeds via PEG tube- Glucerna 1.5 with goal rate 45ml/hr Pepcid for GI ulcer prophylaxis. ID: Monitor for signs of infections ( Fever, WBC) Heme: Monitor CBC Heme: Monitor CBC, On Ferrous sulfate 325mg daily Endo: SSI for glycemic control as patient is on IV steroids Not on chemical DVT prophylaxis due to thrombocytopenia SCDs for DVT prophylaxis. Level 2 Meir Garcia MD Mar 26, 2018 07:34
[2018-03-26] MEDS: SODIUM CHLORIDE 0.9% FLUSH 10 ML FLUSH IV FLUSH SCH ×2 (08:27→21:42)
[2018-03-26] MEDS: FAMOTIDINE 20 MG TAB PO SCH ×2 (08:27→21:42)
[2018-03-26] MEDS: THIAMINE HCL 100 MG TAB G-TUBE SCH (08:27)
[2018-03-26] MEDS: levETIRAcetam 500 MG/5 ML UDC G-TUBE SCH ×2 (08:27→21:42)
[2018-03-26] MEDS: FERROUS SULFATE 325 MG (65 MG ELEMENTAL IRON) TAB PO SCH (09:00)
[2018-03-26] MEDS: REMOVE OLD PATCH T-DERMAL SCH (18:00)
[2018-03-26] MEDS: fentaNYL 50 MCG/HR PATCH T-DERMAL SCH (18:29)
[2018-03-26] MEDS ORDERED: LIDOCAINE HCL 2% 50 ML VIAL ONE (20:12)
[2018-03-26] MEDS: MIRTAZAPINE 15 MG TAB G-TUBE SCH (21:42)
[2018-03-26] MEDS: traZODone HCL 100 MG TAB G-TUBE SCH (21:42)
[2018-03-26] MEDS: MELATONIN 5 MG TAB PO SCH (21:42)
[2018-03-27] VITALS (12 sets, daily range): BP systolic 96–115; BP diastolic 58–74; PULSE 51–65; RESP 14–20; TEMP 97.4–98.6; O2SAT 91–100
[2018-03-27] MEDS: LACTULOSE SYRUP 20 GM/30 ML CUP G-TUBE SCH ×4 (00:17→17:06)
[2018-03-27] MEDS: DEXAMETHASONE SOD PHOS 20 MG/5 ML VIAL IV PUSH SCH ×4 (00:20→17:06)
[2018-03-27] MEDS: ONDANSETRON ODT 4 MG TAB SCH ×4 (00:20→17:06)
[2018-03-27] MEDS: CHLORHEXIDINE GLUCONATE 2 % 1 PACK (2 CLOTHS)(taper/protocol) TOPICAL SCH (04:00)
[2018-03-27] MEDS: THIAMINE HCL 100 MG TAB G-TUBE SCH (08:09)
[2018-03-27] MEDS: FAMOTIDINE 20 MG TAB PO SCH ×2 (08:09→20:44)
[2018-03-27] MEDS: FERROUS SULFATE 325 MG (65 MG ELEMENTAL IRON) TAB PO SCH (08:09)
[2018-03-27] MEDS: levETIRAcetam 500 MG/5 ML UDC G-TUBE SCH ×2 (08:09→20:43)
[2018-03-27] MEDS: SODIUM CHLORIDE 0.9% FLUSH 10 ML FLUSH IV FLUSH SCH ×2 (08:09→21:00)
[2018-03-27 08:23] LABS: AUTOMATED NEUTROPHIL # 4.4 TH/MM3 (1.8-7.7); HEMATOCRIT 31.8 % (39.0-51.0); LYMPH % 7.3 % (9.0-44.0); LYMPHOCYTE # 0.4 TH/MM3 (1.0-4.8); MEAN CELL VOLUME 88.7 FL (80.0-100.0); MEAN CORPUSCULAR HEMOGLOBIN 30.7 PG (27.0-34.0); MEAN CORPUSCULAR HGB CONC 34.6 % (32.0-36.0); MEAN PLATELET VOLUME 7.5 FL (7.0-11.0); MONO % 3.3 % (0.0-8.0); MONOCYTE # 0.2 TH/MM3 (0-0.9); NEUT % 89.4 % (16.0-70.0); PLATELET COUNT 72 TH/MM3 (150-450); RED BLOOD COUNT 3.58 MIL/MM3 (4.50-5.90); RED CELL DISTRIBUTION WIDTH 14.6 % (11.6-17.2); WHITE BLOOD COUNT 4.9 TH/MM3 (4.0-11.0)
[2018-03-27 08:52] LABS: BICARBONATE 26.3 MEQ/L (21.0-32.0); CALCIUM 8.9 MG/DL (8.5-10.1); CREATININE 0.57 MG/DL (0.60-1.30)
[2018-03-27 09:01] LABS: OVALOCYTES 1+ (NORMAL)
--- NOTE | 2018-03-27 09:36 | HHI.CCPN ---
Subjective Remarks/Hospital Course This 62-year-old gentleman is a resident from the [facility]. 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 He has had 2 tracheostomies in the past and presently has in place his second PEG tube. He presents today with a complaint that his ears are plugged up and need to be drained however on arrival it becomes apparent that he has a markedly narrowed supraglottic airway and CAT scan confirms this. He was seen on our service in October 2016 at which time he required tracheostomy because of the obstruction of his pharyngeal mass to his airway. That trach is now removed and the opening is sealed. 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 He appears alert and conversant although hard of hearing, but his answers to questions are quite simple and concrete. I suspect between his chronic alcoholism and myelinosis he probably has suffered some declining cognition. He is quite adamant that he does not want another tracheostomy tube nor to be intubated again. His airway at present is clearly in jeopardy and we will admit him immediately, start steroids and as needed racemic epinephrine. I see no signs of infection. It will be hard for him to avoid a permanent tracheostomy. 03/24 Patient is lying in bed in [facility]. 03/25 No events overnight. Awake and alert looks comfortable. On 3L oxygen with good sats, feeling better. 03/26 Patient is lying in bed in [facility]. 03/27: Patient resting comfortably not obvious signs of dyspnea/respiratory distress. The patient reported episodes of diarrhea throughout the night, now resolved. Objective Vital Signs Date Time Temp Pulse Resp B/P (MAP) Pulse Ox O2 Delivery O2 Flow Rate FiO2 03/27/18 08:00 52 03/27/18 08:00 97.4 18 106/64 (78) 99 03/24/18 22:36 Nasal Cannula 3.00 Intake and Output 03/27/18 03/27/18 03/28/18 08:00 16:00 00:00 Intake Total 342 ml Output Total 1200 ml Balance -858 ml Result Diagram: 03/27/18 0615 03/27/18 0615 Imaging Last Impressions Chest X-Ray 03/23/18 1346 Signed Impressions: Service Date/Time: Friday, March 23, 2018 14:02 - CONCLUSION: No acute cardiopulmonary process Jd Hensley MD Neck CT 03/23/18 0000 Signed Impressions: Service Date/Time: Friday, March 23, 2018 15:04 - CONCLUSION: 1. A. October 2017, patient had a large right parapharyngeal mass lesion with an associated large jugulodigastric necrotic lymph node. These are both no longer present. No new mass lesions identified. 2. However, there is some edema within the tissue planes of the right neck. Findings may represent post radiation changes. 3. Mild chronic sinus disease in the inferior aspect of both maxillary antra, right greater than left. Jd Hensley MD Objective Remarks GENERAL: This is a well-developed well-nourished male lying in bed in [facility] SKIN: Warm and dry. HEAD: Normocephalic. EYES: No scleral icterus. No injection or drainage. NECK: Supple, trachea midline. No JVD or lymphadenopathy. CARDIOVASCULAR: Regular rate and rhythm without murmurs, gallops, or rubs. RESPIRATORY: Breath sounds equal bilaterally. No accessory muscle use. GASTROINTESTINAL: PEG tube in place in mid upper abdomen clean dry. Abdomen nontender, nondistended, no guarding. Bowel sounds active. MUSCULOSKELETAL: No cyanosis, or edema. Neuro: Speech is loud and hoarse. Cranial nerves II through XII are intact and symmetrical. He is alert and oriented 3. 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 4)PEG tube in place. 5)Tracheostomy tube has been removed. 6)Anemia 7)Thrombocytopenia 8) History of seizure disorder Plan: Neuro: awake and alert On Thiamine 100mg daily, Keppra. Pulm: Continue with oxygen keep sats >92% Bronchodilators, Head of bed of 30. Airway precautions. Decadron 10 mg IV every 6 hours. Seen by ENT- Dr. May- continue steroids for now Seen by Dr. mejía from Rad onc s/p Rad treatment on 01/2018 CV: Monitor HR and BP keep MAP>65mmHg : Monitor renal function, electrolytes replacement per protocol GI: On tube feeds via PEG tube- Glucerna 1.5 with goal rate 45ml/hr Pepcid for GI ulcer prophylaxis. 03/27 diarrhea-bowel regimen held ID: Monitor for signs of infections ( Fever, WBC) Heme: Monitor CBC. Platelet count downtrending continue to monitor Heme: Monitor CBC, On Ferrous sulfate 325mg daily Endo: SSI for glycemic control as patient is on IV steroids Not on chemical DVT prophylaxis due to thrombocytopenia SCDs for DVT prophylaxis. Level 2 followup Physician Franci Cox MD Mar 27, 2018 09:35
[2018-03-27] MEDS: MELATONIN 5 MG TAB PO SCH (20:43)
[2018-03-27] MEDS: MIRTAZAPINE 15 MG TAB G-TUBE SCH (20:43)
[2018-03-27] MEDS: traZODone HCL 100 MG TAB G-TUBE SCH (20:43)
[2018-03-28] VITALS (12 sets, daily range): BP systolic 95–119; BP diastolic 58–69; PULSE 51–65; RESP 11–21; TEMP 98.2–98.5; O2SAT 96–100
[2018-03-28] MEDS: DEXAMETHASONE SOD PHOS 20 MG/5 ML VIAL IV PUSH SCH ×2 (00:34→04:41)
[2018-03-28] MEDS: ONDANSETRON ODT 4 MG TAB SCH ×5 (00:34→23:32)
[2018-03-28] MEDS: CHLORHEXIDINE GLUCONATE 2 % 1 PACK (2 CLOTHS)(taper/protocol) TOPICAL SCH (00:35)
[2018-03-28] MEDS: LACTULOSE SYRUP 20 GM/30 ML CUP G-TUBE SCH ×5 (04:41→23:33)
[2018-03-28 05:59] LABS: HEMATOCRIT 34.4 % (39.0-51.0); HEMOGLOBIN 11.9 GM/DL (13.0-17.0); MEAN CELL VOLUME 88.8 FL (80.0-100.0); MEAN CORPUSCULAR HEMOGLOBIN 30.8 PG (27.0-34.0); MEAN CORPUSCULAR HGB CONC 34.7 % (32.0-36.0); MEAN PLATELET VOLUME 7.5 FL (7.0-11.0); PLATELET COUNT 78 TH/MM3 (150-450); RED BLOOD COUNT 3.87 MIL/MM3 (4.50-5.90); RED CELL DISTRIBUTION WIDTH 14.2 % (11.6-17.2); WHITE BLOOD COUNT 4.5 TH/MM3 (4.0-11.0)
[2018-03-28 06:28] LABS: BICARBONATE 28.2 MEQ/L (21.0-32.0); CALCIUM 8.8 MG/DL (8.5-10.1); CREATININE 0.61 MG/DL (0.60-1.30)
[2018-03-28] MEDS: SODIUM CHLORIDE 0.9% FLUSH 10 ML FLUSH IV FLUSH SCH ×2 (08:29→20:22)
[2018-03-28] MEDS: FERROUS SULFATE 325 MG (65 MG ELEMENTAL IRON) TAB PO SCH (08:29)
[2018-03-28] MEDS: levETIRAcetam 500 MG/5 ML UDC G-TUBE SCH ×2 (08:29→20:21)
[2018-03-28] MEDS: THIAMINE HCL 100 MG TAB G-TUBE SCH (08:29)
[2018-03-28] MEDS: FAMOTIDINE 20 MG TAB PO SCH ×2 (08:29→20:22)
--- NOTE | 2018-03-28 10:06 | HHI.CCPN ---
Subjective Remarks/Hospital Course This 62-year-old gentleman is a resident from the [facility]. 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 He has had 2 tracheostomies in the past and presently has in place his second PEG tube. He presents today with a complaint that his ears are plugged up and need to be drained however on arrival it becomes apparent that he has a markedly narrowed supraglottic airway and CAT scan confirms this. He was seen on our service in October 2016 at which time he required tracheostomy because of the obstruction of his pharyngeal mass to his airway. That trach is now removed and the opening is sealed. 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 He appears alert and conversant although hard of hearing, but his answers to questions are quite simple and concrete. I suspect between his chronic alcoholism and myelinosis he probably has suffered some declining cognition. He is quite adamant that he does not want another tracheostomy tube nor to be intubated again. His airway at present is clearly in jeopardy and we will admit him immediately, start steroids and as needed racemic epinephrine. I see no signs of infection. It will be hard for him to avoid a permanent tracheostomy. 03/24 Patient is lying in bed in NAD. 03/25 No events overnight. Awake and alert looks comfortable. On 3L oxygen with good sats, feeling better. 03/26 Patient is lying in bed in NAD. 03/27: Patient resting comfortably not obvious signs of dyspnea/respiratory distress. The patient reported episodes of diarrhea throughout the night, now resolved. 03/28 No events overnight. Awake and alert. Objective Vital Signs Date Time Temp Pulse Resp B/P (MAP) Pulse Ox O2 Delivery O2 Flow Rate FiO2 03/28/18 08:00 98.3 52 14 109/65 (80) 100 03/24/18 22:36 Nasal Cannula 3.00 Intake and Output 03/28/18 03/28/18 03/29/18 08:00 16:00 00:00 Output Total 700 ml Balance -700 ml Result Diagram: 03/28/18 0421 03/28/18 0421 Other Results Laboratory Tests Test 03/28/18 04:21 White Blood Count 4.5 TH/MM3 Red Blood Count 3.87 MIL/MM3 Hemoglobin 11.9 GM/DL Hematocrit 34.4 % Mean Corpuscular Volume 88.8 FL Mean Corpuscular Hemoglobin 30.8 PG Mean Corpuscular Hemoglobin Concent 34.7 % Red Cell Distribution Width 14.2 % Platelet Count 78 TH/MM3 Mean Platelet Volume 7.5 FL Blood Urea Nitrogen 28 MG/DL Creatinine 0.61 MG/DL Random Glucose 141 MG/DL Calcium Level 8.8 MG/DL Sodium Level 140 MEQ/L Potassium Level 4.3 MEQ/L Chloride Level 102 MEQ/L Carbon Dioxide Level 28.2 MEQ/L Anion Gap 10 MEQ/L Estimat Glomerular Filtration Rate 135 ML/MIN Imaging Last Impressions Chest X-Ray 03/23/18 1346 Signed Impressions: Service Date/Time: Friday, March 23, 2018 14:02 - CONCLUSION: No acute cardiopulmonary process Jd Hensley MD Neck CT 03/23/18 0000 Signed Impressions: Service Date/Time: Friday, March 23, 2018 15:04 - CONCLUSION: 1. A. October 2017, patient had a large right parapharyngeal mass lesion with an associated large jugulodigastric necrotic lymph node. These are both no longer present. No new mass lesions identified. 2. However, there is some edema within the tissue planes of the right neck. Findings may represent post radiation changes. 3. Mild chronic sinus disease in the inferior aspect of both maxillary antra, right greater than left. Jd Hensley MD Objective Remarks GENERAL: This is a well-developed well-nourished male lying in bed in NAD SKIN: Warm and dry. HEAD: Normocephalic. EYES: No scleral icterus. No injection or drainage. NECK: Supple, trachea midline. No JVD or lymphadenopathy. CARDIOVASCULAR: Regular rate and rhythm without murmurs, gallops, or rubs. RESPIRATORY: Breath sounds equal bilaterally. No accessory muscle use. GASTROINTESTINAL: PEG tube in place in mid upper abdomen clean dry. Abdomen nontender, nondistended, no guarding. Bowel sounds active. MUSCULOSKELETAL: No cyanosis, or edema. Neuro: Speech is loud and hoarse. Cranial nerves II through XII are intact and symmetrical. He is alert and oriented 3. 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 4)PEG tube in place. 5)Tracheostomy tube has been removed. 6)Anemia 7)Thrombocytopenia 8) History of seizure disorder Plan: Neuro: awake and alert On Thiamine 100mg daily, Keppra. Pulm: Continue with oxygen keep sats >92% Bronchodilators, Head of bed of 30. Airway precautions. Taper IV steroids- Decrease Decadron 4 mg IV every 6 hours. Seen by ENT- Dr. May- continue steroids for now Seen by Dr. mejía from Rad onc s/p Rad treatment on 01/2018 CV: Monitor HR and BP keep MAP>65mmHg Check echo to eval LV function : Monitor renal function, electrolytes replacement per protocol GI: On tube feeds via PEG tube- Glucerna 1.5 with goal rate 45ml/hr Pepcid for GI ulcer prophylaxis. 03/27 diarrhea-bowel regimen held ID: Monitor for signs of infections ( Fever, WBC) Heme: Monitor CBC. Heme: Monitor CBC, On Ferrous sulfate 325mg daily Endo: SSI for glycemic control as patient is on IV steroids Not on chemical DVT prophylaxis due to thrombocytopenia SCDs for DVT prophylaxis. Level 2 followup Meir Garcia MD Mar 28, 2018 10:06
[2018-03-28] MEDS: DEXAMETHASONE SOD PHOS 4 MG/ML VIAL IV PUSH SCH ×3 (12:03→23:32)
--- NOTE | 2018-03-28 13:54 | EKG ---
Date Performed: 03/28/2018 Time Performed: 10:01:02 PTAGE: 62 years EKG: SINUS BRADYCARDIA BORDERLINE ECG PREVIOUS TRACING : 03/23/2018 13.55 Since the previous tracing, no significant change noted DOCTOR: Yinka Pederson Interpretating Date/Time 03/28/2018 13:50:17
[2018-03-28] MEDS: traZODone HCL 100 MG TAB G-TUBE SCH (20:21)
[2018-03-28] MEDS: MIRTAZAPINE 15 MG TAB G-TUBE SCH (20:22)
[2018-03-28] MEDS: MELATONIN 5 MG TAB PO SCH (20:22)
[2018-03-29] VITALS (19 sets, daily range): BP systolic 103–175; BP diastolic 57–96; PULSE 51–70; RESP 12–27; TEMP 97.8–98.6; O2SAT 91–100
[2018-03-29] MEDS: LACTULOSE SYRUP 20 GM/30 ML CUP G-TUBE SCH ×3 (05:23→16:56)
[2018-03-29] MEDS: ONDANSETRON ODT 4 MG TAB SCH ×3 (05:23→16:56)
[2018-03-29] MEDS: DEXAMETHASONE SOD PHOS 4 MG/ML VIAL IV PUSH SCH ×3 (05:24→16:56)
[2018-03-29 07:20] LABS: AUTOMATED NEUTROPHIL # 6.5 TH/MM3 (1.8-7.7); BASOPHIL % 0.1 % (0.0-2.0); HEMATOCRIT 33.7 % (39.0-51.0); HEMOGLOBIN 11.6 GM/DL (13.0-17.0); LYMPHOCYTE # 0.4 TH/MM3 (1.0-4.8); MEAN CELL VOLUME 89.1 FL (80.0-100.0); MEAN CORPUSCULAR HEMOGLOBIN 30.7 PG (27.0-34.0); MEAN CORPUSCULAR HGB CONC 34.5 % (32.0-36.0); MEAN PLATELET VOLUME 7.5 FL (7.0-11.0); MONO % 5.4 % (0.0-8.0); MONOCYTE # 0.4 TH/MM3 (0-0.9); NEUT % 88.5 % (16.0-70.0); PLATELET COUNT 74 TH/MM3 (150-450); RED BLOOD COUNT 3.78 MIL/MM3 (4.50-5.90); RED CELL DISTRIBUTION WIDTH 14.2 % (11.6-17.2); WHITE BLOOD COUNT 7.4 TH/MM3 (4.0-11.0)
[2018-03-29 07:41] LABS: BICARBONATE 28.8 MEQ/L (21.0-32.0); CALCIUM 8.5 MG/DL (8.5-10.1); CREATININE 0.64 MG/DL (0.60-1.30); MAGNESIUM 2.1 MG/DL (1.5-2.5); PHOSPHORUS 2.4 MG/DL (2.5-4.9)
[2018-03-29] MEDS: FAMOTIDINE 20 MG TAB PO SCH ×2 (07:56→20:02)
[2018-03-29] MEDS: SODIUM CHLORIDE 0.9% FLUSH 10 ML FLUSH IV FLUSH SCH ×2 (07:57→20:02)
[2018-03-29] MEDS: FERROUS SULFATE 325 MG (65 MG ELEMENTAL IRON) TAB PO SCH (07:57)
[2018-03-29] MEDS: THIAMINE HCL 100 MG TAB G-TUBE SCH (07:58)
[2018-03-29] MEDS: levETIRAcetam 500 MG/5 ML UDC G-TUBE SCH ×2 (07:58→20:01)
--- NOTE | 2018-03-29 14:47 | HHI.CCPN ---
Subjective Remarks/Hospital Course This 62-year-old gentleman is a resident from the [facility]. 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 He has had 2 tracheostomies in the past and presently has in place his second PEG tube. He presents today with a complaint that his ears are plugged up and need to be drained however on arrival it becomes apparent that he has a markedly narrowed supraglottic airway and CAT scan confirms this. He was seen on our service in October 2016 at which time he required tracheostomy because of the obstruction of his pharyngeal mass to his airway. That trach is now removed and the opening is sealed. 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 He appears alert and conversant although hard of hearing, but his answers to questions are quite simple and concrete. I suspect between his chronic alcoholism and myelinosis he probably has suffered some declining cognition. He is quite adamant that he does not want another tracheostomy tube nor to be intubated again. His airway at present is clearly in jeopardy and we will admit him immediately, start steroids and as needed racemic epinephrine. I see no signs of infection. It will be hard for him to avoid a permanent tracheostomy. 03/24 Patient is lying in bed in NAD. 03/25 No events overnight. Awake and alert looks comfortable. On 3L oxygen with good sats, feeling better. 03/26 Patient is lying in bed in NAD. 03/27: Patient resting comfortably not obvious signs of dyspnea/respiratory distress. The patient reported episodes of diarrhea throughout the night, now resolved. 03/28 No events overnight. Awake and alert. 03/29: Resting comfortably. Wishes to eat. On tube feeds via PEG. Denies any shortness of breath. Speech appears normal. No stridor. Objective Vital Signs Date Time Temp Pulse Resp B/P (MAP) Pulse Ox O2 Delivery O2 Flow Rate FiO2 03/29/18 13:00 57 03/29/18 13:00 13 113/64 (80) 96 03/29/18 12:00 98.2 Intake and Output 03/29/18 03/29/18 03/30/18 08:00 16:00 00:00 Intake Total 665 ml Output Total 700 ml Balance -35 ml Result Diagram: 03/29/18 0647 03/29/1847 Imaging Last Impressions Chest X-Ray 03/23/18 1346 Signed Impressions: Service Date/Time: Friday, March 23, 2018 14:02 - CONCLUSION: No acute cardiopulmonary process Jd Hensley MD Neck CT 03/23/18 0000 Signed Impressions: Service Date/Time: Friday, March 23, 2018 15:04 - CONCLUSION: 1. A. October 2017, patient had a large right parapharyngeal mass lesion with an associated large jugulodigastric necrotic lymph node. These are both no longer present. No new mass lesions identified. 2. However, there is some edema within the tissue planes of the right neck. Findings may represent post radiation changes. 3. Mild chronic sinus disease in the inferior aspect of both maxillary antra, right greater than left. Jd Hensley MD Objective Remarks GENERAL: This is a well-developed well-nourished male lying in bed in NAD SKIN: Warm and dry. HEAD: Normocephalic. EYES: No scleral icterus. No injection or drainage. NECK: Supple, trachea midline. No JVD or lymphadenopathy. CARDIOVASCULAR: Regular rate and rhythm without murmurs, gallops, or rubs. RESPIRATORY: Breath sounds equal bilaterally. No accessory muscle use. GASTROINTESTINAL: PEG tube in place in mid upper abdomen clean dry. Abdomen nontender, nondistended, no guarding. Bowel sounds active. MUSCULOSKELETAL: No cyanosis, or edema. Neuro: Cranial nerves II through XII are intact and symmetrical. He is alert and oriented 3. 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 4)PEG tube in place. 5)Tracheostomy tube has been removed. 6)Anemia 7)Thrombocytopenia 8) History of seizure disorder Plan: Neuro: awake and alert On Thiamine 100mg daily, Keppra. Pulm: Continue with oxygen keep sats >92% Bronchodilators, Head of bed of 30. Airway precautions. Taper IV steroids- Decrease Decadron 4 mg IV every 6 hours. Seen by ENT- Dr. May- continue steroids for now Seen by Dr. mejía from Rad onc s/p Rad treatment on 01/2018 CV: Monitor HR and BP keep MAP>65mmHg Check echo to eval LV function : Monitor renal function, electrolytes replacement per protocol GI: On tube feeds via PEG tube- Glucerna 1.5 with goal rate 45ml/hr Pepcid for GI ulcer prophylaxis. 03/27 diarrhea-bowel regimen held Obtain swallow evaluation as patient wishes to eat p.o. He was on a pured diet before. ID: Monitor for signs of infections ( Fever, WBC) Heme: Monitor CBC. Heme: Monitor CBC, On Ferrous sulfate 325mg daily Endo: SSI for glycemic control as patient is on IV steroids Not on chemical DVT prophylaxis due to thrombocytopenia SCDs for DVT prophylaxis. Consult and transfer to hospitalist service for further medical management, critical care will be signing off. Please reconsult if needed Elliott Rock MD Mar 29, 2018 14:47
[2018-03-29] MEDS: REMOVE OLD PATCH T-DERMAL SCH (16:56)
[2018-03-29] MEDS: fentaNYL 50 MCG/HR PATCH T-DERMAL SCH (16:57)
--- NOTE | 2018-03-29 19:03 | ECHRPT ---
Indication: EVAL LV FUNCTION CONCLUSIONS Normal left ventricular size. EF @ 45-50% Wall thickness is measured at the upper limits of normal. The left ventricular systolic function is grossly normal on limited imaging. The left atrial size is mildly dilated. The right atrial size is mildly dilated. Trace mitral valve regurgitation. Mild aortic valve regurgitation. There is trace tricuspid valve regurgitation. Trivial pulmonary valve regurgitation. BP: 111 / 64 HR: 62 Rhythm: Sinus MEASUREMENTS (Male / Female) Normal Values Technical Quality:Fair 2D ECHO LV Diastolic Diameter PLAX 5.1 cm 4.2 - 5.9 / 3.9 - 5.3 cm LV Systolic Diameter PLAX 3.3 cm IVS Diastolic Thickness 1.0 cm 0.6 - 1.0 / 0.6 - 0.9 cm LVPW Diastolic Thickness 1.0 cm 0.6 - 1.0 / 0.6 - 0.9 cm LV Relative Wall Thickness 0.4 RV Internal Dim ED PLAX 3.3 cm LVOT Diameter 2.4 cm Aortic Root Diameter 3.6 cm LA Systolic Diameter LX 3.6 cm 3.0 - 4.0 / 2.7 - 3.8 cm M-MODE AV Cusp Separation MM 2.4 cm DOPPLER AV Peak Velocity 127.0 cm/s AV Peak Gradient 6.5 mmHg AV Mean Gradient 3.0 mmHg AV Velocity Time Integral 28.8 cm LVOT Peak Velocity 68.7 cm/s LVOT Peak Gradient 1.9 mmHg LVOT Velocity Time Integral 15.7 cm AV Area Cont Eq vti 2.5 cm AV Area Cont Eq pk 2.4 cm Mitral E Point Velocity 51.7 cm/s Mitral A Point Velocity 62.9 cm/s Mitral E to A Ratio 0.8 LV E' Lateral Velocity 10.2 cm/s Mitral E to LV E' Lateral Ratio 5.1 LV E' Septal Velocity 4.3 cm/s Mitral E to LV E' Septal Ratio 12.1 TR Peak Velocity 229.0 cm/s TR Peak Gradient 21.0 mmHg PV Peak Velocity 52.6 cm/s PV Peak Gradient 1.1 mmHg FINDINGS LEFT VENTRICLE Normal left ventricular size. Wall thickness is measured at the upper limits of normal. The left ventricular systolic function is grossly normal on limited imaging. RIGHT VENTRICLE Normal right ventricular size and systolic function. LEFT ATRIUM The left atrial size is mildly dilated. RIGHT ATRIUM The right atrial size is mildly dilated. AORTA The aortic root and proximal ascending aorta are normal in size on limited imaging. MITRAL VALVE Trace mitral valve regurgitation. AORTIC VALVE Trileaflet aortic valve. Mild aortic valve regurgitation. TRICUSPID VALVE There is trace tricuspid valve regurgitation. PULMONARY VALVE Trivial pulmonary valve regurgitation. VESSELS The inferior vena cava is normal in size. PERICARDIUM No pericardial effusion. Parvez Adams MD, FACC, FSCAI (Electronically Signed) Final Date:29 March 2018 19:02
[2018-03-29] MEDS: MIRTAZAPINE 15 MG TAB G-TUBE SCH (20:01)
[2018-03-29] MEDS: MELATONIN 5 MG TAB PO SCH (20:02)
[2018-03-29] MEDS: traZODone HCL 100 MG TAB G-TUBE SCH (20:08)
[2018-03-30] VITALS (14 sets, daily range): BP systolic 99–117; BP diastolic 58–68; PULSE 55–80; RESP 16–27; TEMP 97.9–98.4; O2SAT 94–98
[2018-03-30] MEDS: DEXAMETHASONE SOD PHOS 4 MG/ML VIAL IV PUSH SCH ×2 (04:17)
[2018-03-30] MEDS: LACTULOSE SYRUP 20 GM/30 ML CUP G-TUBE SCH ×5 (04:18→22:52)
[2018-03-30] MEDS: ONDANSETRON ODT 4 MG TAB SCH ×5 (04:18→22:52)
[2018-03-30] MEDS: FAMOTIDINE 20 MG TAB PO SCH ×2 (07:53→20:30)
[2018-03-30] MEDS: THIAMINE HCL 100 MG TAB G-TUBE SCH (07:53)
[2018-03-30] MEDS: SODIUM CHLORIDE 0.9% FLUSH 10 ML FLUSH IV FLUSH SCH ×2 (07:53→20:30)
[2018-03-30] MEDS: FERROUS SULFATE 325 MG (65 MG ELEMENTAL IRON) TAB PO SCH (07:53)
[2018-03-30] MEDS: levETIRAcetam 500 MG/5 ML UDC G-TUBE SCH ×2 (07:53→20:29)
--- NOTE | 2018-03-30 09:24 | HHI.PR ---
Subjective Remarks The patient was resting comfortably in bed. He states that he was breathing a lot better. He was looking forward to eating something. He was hoping to go back to his facility soon. Discussed with nursing. Objective Vitals Vital Signs Date Time Temp Pulse Resp B/P (MAP) Pulse Ox O2 Delivery O2 Flow Rate FiO2 03/30/18 08:00 75 03/30/18 08:00 97.9 75 27 111/68 (82) 94 03/30/18 06:00 62 03/30/18 04:00 98.4 62 17 105/61 (76) 96 03/30/18 04:00 60 03/30/18 02:00 66 03/30/18 00:00 98.3 55 18 100/59 (73) 94 03/30/18 00:00 55 03/29/18 22:00 59 03/29/18 20:00 98.1 62 14 103/68 (80) 97 03/29/18 20:00 58 03/29/18 18:00 61 03/29/18 17:01 68 27 131/70 (90) 94 03/29/18 17:01 68 03/29/18 17:00 70 03/29/18 17:00 70 21 91 03/29/18 16:00 68 03/29/18 16:00 68 14 108/61 (77) 95 03/29/18 15:00 59 03/29/18 14:00 56 03/29/18 13:00 57 03/29/18 13:00 57 13 113/64 (80) 96 03/29/18 12:01 64 03/29/18 12:01 64 14 118/57 (77) 97 03/29/18 12:00 63 03/29/18 12:00 98.2 63 24 118/57 (77) 96 03/29/18 11:00 57 03/29/18 10:00 55 I/O 03/29/18 03/29/18 03/29/18 03/30/18 03/30/18 03/30/18 07:00 15:00 23:00 07:00 15:00 23:00 Intake Total 665 ml 825 ml 753 ml Output Total 700 ml 150 ml 650 ml Balance -35 ml 675 ml 103 ml Intake Oral 100 ml Tube Feeding 545 ml 585 ml 533 ml Other 120 ml 240 ml 120 ml Output Urine Total 700 ml 150 ml 650 ml # Voids 2 4 # Bowel Movements 0 0 0 Result Diagram: 03/29/18 0647 03/29/18 0647 Imaging Last Impressions Chest X-Ray 03/23/18 1346 Signed Impressions: Service Date/Time: Friday, March 23, 2018 14:02 - CONCLUSION: No acute cardiopulmonary process Jd Hensley MD Neck CT 03/23/18 0000 Signed Impressions: Service Date/Time: Friday, March 23, 2018 15:04 - CONCLUSION: 1. A. October 2017, patient had a large right parapharyngeal mass lesion with an associated large jugulodigastric necrotic lymph node. These are both no longer present. No new mass lesions identified. 2. However, there is some edema within the tissue planes of the right neck. Findings may represent post radiation changes. 3. Mild chronic sinus disease in the inferior aspect of both maxillary antra, right greater than left. Jd Hensley MD Objective Remarks GENERAL: No distress. SKIN: Warm and dry. HEAD: Normocephalic. EYES: No scleral icterus. No injection or drainage. NECK: Supple, trachea midline. No JVD or lymphadenopathy. CARDIOVASCULAR: Regular rate and rhythm without murmurs, gallops, or rubs. RESPIRATORY: Breath sounds equal bilaterally. No accessory muscle use. GASTROINTESTINAL: PEG tube in place in mid upper abdomen. Abdomen nontender, nondistended, no guarding. Bowel sounds active. MUSCULOSKELETAL: No cyanosis, or edema. NEURO: Cranial nerves II through XII are intact and symmetrical. He is alert and oriented 3. PSYCH: Mood and affect appropriate. Medications and IVs Current Medications Medications (Trade) Dose Ordered Sig/Mae Route Start Time Stop Time Status Last Admin (NS Flush) 2 ml UNSCH PRN IV FLUSH 03/23/18 17:30 (NS Flush) 2 ml BID IV FLUSH 03/23/18 21:00 03/30/18 07:53 (Duragesic 50 Mcg Patch.72 Hr) 1 patch Q72H T-DERMAL 03/23/18 18:00 03/29/18 16:57 (Ferrous Sulfate) 325 mg DAILY PO 03/24/18 09:00 03/30/18 07:53 (Lactulose Liq) 30 ml Q6HR G-TUBE 03/23/18 18:00 03/28/18 04:41 (Keppra Liq) 1,000 mg BID G-TUBE 03/23/18 21:00 03/30/18 07:53 (Melatonin) 5 mg HS PO 03/23/18 21:00 03/29/18 20:02 (Remeron) 15 mg HS G-TUBE 03/23/18 21:00 03/29/18 20:01 (Roxicodone) 10 mg Q4H PO 03/23/18 20:00 03/30/18 07:53 (Vitamin B1) 100 mg DAILY G-TUBE 03/24/18 09:00 03/30/18 07:53 (Zofran Odt) 8 mg Q6HR .XX 03/23/18 18:00 03/30/18 04:18 (Desyrel) 100 mg HS G-TUBE 03/23/18 21:00 03/29/18 20:08 Miscellaneous Information 1 Q3D T-DERMAL 03/26/18 18:00 03/29/18 16:56 Miscellaneous Information Patient in critical care unit? Ass... [id number] .XX 03/24/18 00:15 03/24/18 00:15 (Pepcid) 20 mg BID PO 03/25/18 21:00 03/30/18 07:53 (Decadron Inj) 4 mg Q6HR IV PUSH 03/28/18 12:00 03/30/18 04:17 A/P Problem List: (1) Disorder of upper airway ICD Code: J98.9 - Respiratory disorder, unspecified (2) Head and neck malignancy ICD Code: C76.0 - Malignant neoplasm of head, face and neck (3) Thrombocytopenia ICD Code: D69.6 - Thrombocytopenia, unspecified (4) Alcoholic liver disease ICD Code: K70.9 - Alcoholic liver disease, unspecified Status: Acute Assessment and Plan Resp insufficiency/ Supraglottic airway obstruction, acute on chronic/ Laryngeal malignancy Status post radiation therapy to the neck. ENT consult appreciated. EF 45-50%. - Continue with oxygen keep sats >92%. - Bronchodilators. - Head of bed of 30. Airway precautions. - Taper IV steroids to prednisone 20 mg BID. - Seen by Dr. factor from Rad onc s/p Rad treatment on 01/2018. - PT/ OT. - incentive spirometry. Malnutrition On tube feeds via PEG tube. - continue TFs with tray per ST. Anemia Hemoglobin has been stable. - On Ferrous sulfate 325mg daily. Thrombocytopenia PLT count about at baseline. - monitor CBC as needed. PPx: SCDs for DVT prophylaxis; Not on chemical DVT prophylaxis due to thrombocytopenia Discharge Planning Transfer to floor, possible d/c in 1-2 days Justino Richardson DO Mar 30, 2018 09:24
[2018-03-30] MEDS: traZODone HCL 100 MG TAB G-TUBE SCH (20:28)
[2018-03-30] MEDS: MELATONIN 5 MG TAB PO SCH (20:28)
[2018-03-30] MEDS: MIRTAZAPINE 15 MG TAB G-TUBE SCH (20:28)
[2018-03-30] MEDS: predniSONE 20 MG TAB PO SCH (20:29)
[2018-03-31] VITALS (10 sets, daily range): BP systolic 103–117; BP diastolic 59–66; PULSE 60–71; RESP 12–21; TEMP 97.6–98.3; O2SAT 95–97
[2018-03-31] MEDS: ONDANSETRON ODT 4 MG TAB SCH ×2 (03:24→12:33)
[2018-03-31] MEDS: LACTULOSE SYRUP 20 GM/30 ML CUP G-TUBE SCH ×2 (03:25→12:32)
[2018-03-31 08:06] LABS: BICARBONATE 18.8 MEQ/L (21.0-32.0); CALCIUM 8.5 MG/DL (8.5-10.1); CREATININE 0.66 MG/DL (0.60-1.30); MAGNESIUM 1.9 MG/DL (1.5-2.5)
[2018-03-31] MEDS: levETIRAcetam 500 MG/5 ML UDC G-TUBE SCH (08:19)
[2018-03-31] MEDS: FERROUS SULFATE 325 MG (65 MG ELEMENTAL IRON) TAB PO SCH (08:20)
[2018-03-31] MEDS: predniSONE 20 MG TAB PO SCH (08:20)
[2018-03-31] MEDS: FAMOTIDINE 20 MG TAB PO SCH (08:21)
[2018-03-31] MEDS: THIAMINE HCL 100 MG TAB G-TUBE SCH (08:21)
[2018-03-31] MEDS: SODIUM CHLORIDE 0.9% FLUSH 10 ML FLUSH IV FLUSH SCH (08:21)
[2018-03-31] MEDS ORDERED: FENT50DI T-DERMAL (11:58)
[2018-03-31] MEDS ORDERED: PRED20 PO ×2 (11:58)
[2018-03-31] MEDS ORDERED: FAMO20TA2 PO (11:58)
[2018-03-31 13:26] LABS: HEMATOCRIT 37.1 % (39.0-51.0); HEMOGLOBIN 12.4 GM/DL (13.0-17.0); MEAN CELL VOLUME 89.6 FL (80.0-100.0); MEAN CORPUSCULAR HEMOGLOBIN 29.9 PG (27.0-34.0); MEAN CORPUSCULAR HGB CONC 33.4 % (32.0-36.0); PLATELET COUNT 68 TH/MM3 (150-450); RED BLOOD COUNT 4.14 MIL/MM3 (4.50-5.90); RED CELL DISTRIBUTION WIDTH 14.6 % (11.6-17.2); WHITE BLOOD COUNT 16.4 TH/MM3 (4.0-11.0)
[2018-03-31 13:41] LABS: BICARBONATE 28.9 MEQ/L (21.0-32.0); CALCIUM 8.8 MG/DL (8.5-10.1); CREATININE 0.62 MG/DL (0.60-1.30)
--- NOTE | 2018-03-31 14:02 | HHI.DS ---
Discharge Summary Admission Date Mar 23, 2018 at 16:42 Discharge Date: Mar 31, 2018 Admitting Diagnosis Sublingual Swelling. (1) Disorder of upper airway ICD Code: J98.9 - Respiratory disorder, unspecified Diagnosis: Principal (2) Head and neck malignancy ICD Code: C76.0 - Malignant neoplasm of head, face and neck Diagnosis: Principal (3) Thrombocytopenia ICD Code: D69.6 - Thrombocytopenia, unspecified Diagnosis: Secondary (4) Alcoholic liver disease ICD Code: K70.9 - Alcoholic liver disease, unspecified Diagnosis: Secondary Status: Acute Procedures None Brief History - From Admission This 62-year-old gentleman is a resident from the [facility]. 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 He has had 2 tracheostomies in the past and presently has in place his second PEG tube. He presents today with a complaint that his ears are plugged up and need to be drained however on arrival it becomes apparent that he has a markedly narrowed supraglottic airway and CAT scan confirms this. He was seen on our service in October 2016 at which time he required tracheostomy because of the obstruction of his pharyngeal mass to his airway. That trach is now removed and the opening is sealed. 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 He appears alert and conversant although hard of hearing, but his answers to questions are quite simple and concrete. I suspect between his chronic alcoholism and myelinosis he probably has suffered some declining cognition. He is quite adamant that he does not want another tracheostomy tube nor to be intubated again. His airway at present is clearly in jeopardy and we will admit him immediately, start steroids and as needed racemic epinephrine. I see no signs of infection. It will be hard for him to avoid a permanent tracheostomy. CBC/BMP: 03/31/18 1240 03/31/18 1240 Significant Findings Laboratory Tests Test 03/29/18 06:47 03/31/18 05:24 03/31/18 12:40 Red Blood Count 3.78 MIL/MM3 (4.50-5.90) 4.14 MIL/MM3 (4.50-5.90) Hemoglobin 11.6 GM/DL (13.0-17.0) 12.4 GM/DL (13.0-17.0) Hematocrit 33.7 % (39.0-51.0) 37.1 % (39.0-51.0) Platelet Count 74 TH/MM3 (150-450) 68 TH/MM3 (150-450) Neutrophils (%) (Auto) 88.5 % (16.0-70.0) Lymphocytes (%) (Auto) 6.0 % (9.0-44.0) Lymphocytes # (Auto) 0.4 TH/MM3 (1.0-4.8) Platelet Estimate LOW (NORMAL) Blood Urea Nitrogen 29 MG/DL (7-18) 23 MG/DL (7-18) 23 MG/DL (7-18) Random Glucose 122 MG/DL (74-106) 110 MG/DL (74-106) 131 MG/DL (74-106) Phosphorus Level 2.4 MG/DL (2.5-4.9) Sodium Level 129 MEQ/L (136-145) 133 MEQ/L (136-145) Carbon Dioxide Level 18.8 MEQ/L (21.0-32.0) White Blood Count 16.4 TH/MM3 (4.0-11.0) Imaging Last Impressions Chest X-Ray 03/23/18 1346 Signed Impressions: Service Date/Time: Friday, March 23, 2018 14:02 - CONCLUSION: No acute cardiopulmonary process Jd Hensley MD Neck CT 03/23/18 0000 Signed Impressions: Service Date/Time: Friday, March 23, 2018 15:04 - CONCLUSION: 1. A. October 2017, patient had a large right parapharyngeal mass lesion with an associated large jugulodigastric necrotic lymph node. These are both no longer present. No new mass lesions identified. 2. However, there is some edema within the tissue planes of the right neck. Findings may represent post radiation changes. 3. Mild chronic sinus disease in the inferior aspect of both maxillary antra, right greater than left. Jd Hensley MD PE at Discharge GENERAL: No distress. SKIN: Warm and dry. HEAD: Normocephalic. EYES: No scleral icterus. No injection or drainage. NECK: Supple, trachea midline. No JVD or lymphadenopathy. CARDIOVASCULAR: Regular rate and rhythm without murmurs, gallops, or rubs. RESPIRATORY: Breath sounds equal bilaterally. No accessory muscle use. GASTROINTESTINAL: PEG tube in place in mid upper abdomen. Abdomen nontender, nondistended, no guarding. Bowel sounds active. MUSCULOSKELETAL: No cyanosis, or edema. NEURO: Cranial nerves II through XII are intact and symmetrical. He is alert and oriented 3. PSYCH: Mood and affect appropriate. Pt update on day of discharge The pt was feeling great and wanted to go home. He said he did not want to continue taking oxycodone but would like to have the fentanyl patch available. Has been breathing well and tolerating a diet. Discussed with nursing and case management. Hospital Course Resp insufficiency/ Supraglottic airway obstruction, acute on chronic/ Laryngeal malignancy The pt has a history of radiation therapy to the neck. He was given oxygen and was monitored in the ICU. He was started on steroids and bronchodilators. ENT was consulted. He was placed under airway precautions. EF 45-50% on echo. His symptoms continued to improve. His IV steroids have been changed to a prednisone taper. He used incentive spirometry. He worked with PT and OT. He will be discharged with albuterol nebs as needed. He will follow up with radiation oncology as an outpt. Malnutrition Initially the pt was made NPO. As his status improved he was resumed on tube feeds via PEG tube. Speech therapy evaluated the patient and he was also started on a pureed, nectar thick diet which he will continue along with tube feeds upon discharge. Pt Condition on Discharge: Stable Discharge Disposition: Discharge to SNF Discharge Time: > 30 minutes Discharge Instructions DIET: Follow Instructions for: On Tube Feeding Additional Diet Instructions: Glucerna 1.5 at 45 ml/hr, pureed diet, nectar thick liquids Activities you can perform: Weight Bearing as Edilia Follow up Referrals: Ear Nose Throat - [address] Willingham Oncology - 1 Week PCP Follow-up - 1 Week New Medications: Albuterol Neb (Albuterol Neb) 2.5 Mg/3 Ml Neb 2.5 MG NEB Q4HR NEB PRN for SHORTNESS OF BREATH, #60 NEBULE 0 Refills Prednisone (Prednisone) 20 Mg Tab 20 MG PO BID for Swelling for 2 Days, #4 TAB 0 Refills Famotidine (Famotidine) 20 Mg Tab 20 MG PO BID for Stomach, #60 TAB Prednisone (Prednisone) 20 Mg Tab 20 MG PO DAILY for Swelling, #5 TAB Continued Medications: Fentanyl Patch 72 HR (Fentanyl Patch 72 HR) 50 Mcg/Hr Patch 50 MCG T-DERMAL Q72H for Pain Management, #3 PATCH 0 Refills (This prescription has been renewed) Remove old patch when new one placed. Ferrous Sulfate (Ferrous Sulfate) 325 Mg (65 Mg Iron) Tablet 325 MG G-TUBE DAILY for Nutritional Supplement, #30 TAB 0 Refills Lactulose Liq (Lactulose Liq) 10 Gm/15 Ml Soln 30 ML G-TUBE Q6H PRN for SEE DOSE INSTRUCTIONS, ML 0 Refills Levetiracetam (Keppra) 1,000 Mg Tab 1000 MG G-TUBE BID for Control Seizures, #60 TAB 0 Refills Melatonin (Melatonin) 5 Mg Tab 6 MG PEG HS for Provide Good Sleep, TAB 0 Refills Mirtazapine (Remeron) 15 Mg Tab 15 MG G-TUBE HS for Depression Control, #30 TAB 0 Refills Multiple Vitamins W/ Minerals (Multi Vitamin and Mineral) 7.5 Mg Iron-400 Mcg Tab 1 TAB PEG DAILY Ondansetron (Zofran) 8 Mg Tab 8 MG G-TUBE Q6HR for Nausea/Vomiting, TAB 0 Refills Thiamine HCl (Thiamine HCl) 100 Mg Tablet 1 TAB G-TUBE DAILY Trazodone (Trazodone) 100 Mg Tablet 100 MG G-TUBE HS for Control Depression, #30 TAB 0 Refills Discontinued Medications: Oxycodone (Oxycodone) 10 Mg Tab 10 MG PO Q4HR for Pain Management, TAB 0 Refills Oxycodone (Oxycodone) 10 Mg Tab 10 MG PO Q4HR for Pain Management, TAB 0 Refills Justino Richardson DO Mar 31, 2018 14:02
--- NOTE | 2018-03-31 14:15 | HHI.DCPOC ---
Discharge Care Plan Diagnosis: (1) Neck swelling (2) Airway obstruction (3) Disorder of upper airway (4) Head and neck malignancy Goals to Promote Your Health * To prevent worsening of your condition and complications * To maintain your health at the optimal level Directions to Meet Your Goals Take your medications as prescribed Follow your dietary instruction Follow activity as directed Keep your appointments as scheduled Take your immunizations and boosters as scheduled If your symptoms worsen call your PCP, if no PCP go to Urgent Care Center or Emergency Room Smoking is Dangerous to Your Health. Avoid second hand smoke Call the 24-hour hour crisis hotline for domestic abuse at Justino Richardson DO Mar 31, 2018 14:15
[2018-03-31] MEDS ORDERED: ALBU0.08 NEB (14:18)
== END 2018-03-31 17:30 | DRG 147 ==
LOC: NEPC 13:34 → NEDA 16:42 → HIME 17:55
PROVIDERS: ADMIT Hospitalist; ATTEND Hospitalist
DX: C32.9 Malignant neoplasm of larynx, unspecified (principal); C79.89 Secondary malignant neoplasm of other specified sites; D69.6 Thrombocytopenia, unspecified; K74.60 Unspecified cirrhosis of liver; C09.9 Malignant neoplasm of tonsil, unspecified; E46 Unspecified protein-calorie malnutrition; Z93.1 Gastrostomy status; D64.9 Anemia, unspecified; J98.8 Other specified respiratory disorders; F10.20 Alcohol dependence, uncomplicated; R06.89 Other abnormalities of breathing; G40.909 Epilepsy, unspecified, not intractable, without status epilepticus; K70.9 Alcoholic liver disease, unspecified; Z92.3 Personal history of irradiation; Z91.010 Allergy to peanuts; Z91.013 Allergy to seafood; Z91.018 Allergy to other foods; Z79.891 Long term (current) use of opiate analgesic; Z79.899 Other long term (current) drug therapy; Z68.20 Body mass index [BMI] 20.0-20.9, adult
CPT/HCPCS: 70491; 71045; 80048; 80053; 83735; 84100; 85025; 85027; 85610; 85730; 87641; 93005; 93306; J1100; J2270; J2405; J7030; J7512; Q9967

== ENCOUNTER 2018-04-11 08:09 | Inpatient (IN) | payer MEDICAID ==
[2018-04-11] MEDS: PIPERACIL-TAZO 3.375 GM PREMIX 50 ML IV (08:55)
[2018-04-11] MEDS: methylPREDNISolone SOD SUCC 125 MG/2 ML VIAL IV PUSH (08:55)
[2018-04-11 09:00] LABS: AUTOMATED NEUTROPHIL # 7.3 TH/MM3 (1.8-7.7); BASOPHIL % 0.2 % (0.0-2.0); EOSINOPHIL # 0.3 TH/MM3 (0-0.4); EOSINOPHIL % 3.1 % (0.0-4.0); HEMATOCRIT 30.5 % (39.0-51.0); HEMOGLOBIN 10.6 GM/DL (13.0-17.0); LYMPH % 6.3 % (9.0-44.0); LYMPHOCYTE # 0.5 TH/MM3 (1.0-4.8); MEAN CELL VOLUME 86.4 FL (80.0-100.0); MEAN CORPUSCULAR HEMOGLOBIN 30.1 PG (27.0-34.0); MEAN CORPUSCULAR HGB CONC 34.9 % (32.0-36.0); MEAN PLATELET VOLUME 7.3 FL (7.0-11.0); MONO % 6.2 % (0.0-8.0); MONOCYTE # 0.5 TH/MM3 (0-0.9); NEUT % 84.2 % (16.0-70.0); PLATELET COUNT 94 TH/MM3 (150-450); RED BLOOD COUNT 3.53 MIL/MM3 (4.50-5.90); RED CELL DISTRIBUTION WIDTH 14.5 % (11.6-17.2); WHITE BLOOD COUNT 8.6 TH/MM3 (4.0-11.0)
[2018-04-11 09:03] LABS: HEMO FLAGS AUTO DIFF
[2018-04-11] MEDS: IOHEXOL 350 MG/ML 10 ML VIAL (for RAD DIAG) IVCONTRAST (09:21)
[2018-04-11 09:27] LABS: ALBUMIN 2.5 GM/DL (3.4-5.0); ANION GAP 8 MEQ/L (5-15); AST (GOT) 27 U/L (15-37); BICARBONATE 28.4 MEQ/L (21.0-32.0); BLOOD UREA NITROGEN 15 MG/DL (7-18); CALCIUM 8.4 MG/DL (8.5-10.1); CHLORIDE 99 MEQ/L (98-107); CREATININE 0.61 MG/DL (0.60-1.30); GLOMERULAR FILTRATION RATE 135 ML/MIN (>89); GLUCOSE,RANDOM 144 MG/DL (74-106); POTASSIUM 3.6 MEQ/L (3.5-5.1); SODIUM (NA) 135 MEQ/L (136-145)
[2018-04-11 09:28] LABS: ALT (GPT) 44 U/L (12-78)
[2018-04-11 09:29] LABS: LACTIC ACID 1.8 mmol/L (0.4-2.0)
[2018-04-11 09:30] LABS: ALKALINE PHOSPHATASE 164 U/L (45-117); TOTAL BILIRUBIN ADULT 0.9 MG/DL (0.2-1.0); TOTAL PROTEIN 6.1 GM/DL (6.4-8.2)
[2018-04-11] MEDS ORDERED: OXYMETAZOLINE HCL 0.05% 15 ML NASAL SPRAY NASAL (09:30)
[2018-04-11] MEDS ORDERED: LIDOCAINE 1%/EPINEPHrine 1:100,000 SOLN 50 ML VIAL OTHER (09:30)
[2018-04-11 09:32] LABS: PLATELET ESTIMATE SMEAR LOW (NORMAL); PLATELET MORPHOLOGY NORMAL (NORMAL); SCAN/DIFF AUTO DIFF CONFIRMED
[2018-04-11] MEDS ORDERED: RESP: RACEPINEPHRINE 2.25% 0.5 ML NEB NEB (10:30)
[2018-04-11] MEDS ORDERED: LACTULOSE SYRUP 20 GM/30 ML CUP PO (10:30)
[2018-04-11] MEDS: NURSING INFORMATION XX (10:30)
[2018-04-11] MEDS ORDERED: ONDANSETRON HCL 4 MG/2 ML VIAL IV PUSH (10:30)
[2018-04-11] MEDS ORDERED: CHLORHEXIDINE GLUCONATE 2 % 1 PACK (2 CLOTHS) TOP (10:30)
[2018-04-11] MEDS ORDERED: BISACODYL 10 MG SUPP RECTAL (10:30)
[2018-04-11] MEDS ORDERED: fentaNYL 50 MCG/HR PATCH T-DERMAL (11:00)
[2018-04-11] MEDS: HEPARIN SODIUM - SQ 10,000 UNITS/ML VIAL SQ ×2 (11:26→21:10)
[2018-04-11] MEDS: levETIRAcetam 500 MG TAB G-TUBE ×2 (11:26→21:11)
[2018-04-11] MEDS: CLINDAMYCIN 900 MG/NS PREMIX 50 ML IV ×2 (11:27→21:10)
[2018-04-11] MEDS: SODIUM CHLOR 0.9% 1000 ML INJ 1,000 ML IV (11:28)
[2018-04-11] MEDS: SENNOSIDES 8.6 MG TAB PO (11:40)
[2018-04-11] MEDS: LACTULOSE SYRUP 20 GM/30 ML CUP G-TUBE (11:40)
[2018-04-11] MEDS: MAGNESIUM HYDROXIDE SUSP 30 ML CUP PO (11:40)
[2018-04-11] MEDS: fentaNYL 50 MCG/HR PATCH T-DERMAL (12:14)
[2018-04-11 13:17] LABS: MRSA PCR SURVEILLANCE MRSA DETECTED (NOT DETECT)
[2018-04-11] MEDS: oxyCODONE HCL ORAL CONC 5 MG/0.25 ML SYRINGE PO ×3 (14:31→22:05)
[2018-04-11] MEDS ORDERED: CHLORHEXIDINE GLUCONATE 2 % 1 PACK (2 CLOTHS)(extra cloths) TOPICAL (19:15)
[2018-04-11] MEDS: MIRTAZAPINE 15 MG TAB G-TUBE (21:11)
[2018-04-11] MEDS: MUPIROCIN 2% OINT 1 APPLIC/GM SYR NASAL (21:11)
[2018-04-11] MEDS: traZODone HCL 100 MG TAB G-TUBE (21:11)
[2018-04-11] MEDS: DOCUSATE SODIUM 50 MG/SENNA 8.6 MG TAB PO (21:12)
[2018-04-11] MEDS: FAMOTIDINE 20 MG TAB PO (21:12)
[2018-04-12] MEDS: SODIUM CHLOR 0.9% 1000 ML INJ 1,000 ML IV ×3 (00:59→22:45)
[2018-04-12] MEDS: oxyCODONE HCL ORAL CONC 5 MG/0.25 ML SYRINGE PO ×3 (02:32→20:06)
[2018-04-12] MEDS: CHLORHEXIDINE GLUCONATE 2 % 1 PACK (2 CLOTHS) TOP (03:35)
[2018-04-12] MEDS: CLINDAMYCIN 900 MG/NS PREMIX 50 ML IV ×3 (03:35→20:05)
[2018-04-12] MEDS: HEPARIN SODIUM - SQ 10,000 UNITS/ML VIAL SQ ×3 (03:35→20:06)
[2018-04-12] MEDS: CHLORHEXIDINE GLUCONATE 2 % 1 PACK (2 CLOTHS)(taper/protocol) TOPICAL (03:36)
[2018-04-12] MEDS: predniSONE 20 MG TAB PO (09:04)
[2018-04-12] MEDS: levETIRAcetam 500 MG TAB G-TUBE ×2 (09:04→20:06)
[2018-04-12] MEDS: DOCUSATE SODIUM 50 MG/SENNA 8.6 MG TAB PO ×2 (09:04→20:06)
[2018-04-12] MEDS: FAMOTIDINE 20 MG TAB PO ×2 (09:05→20:06)
[2018-04-12] MEDS: MUPIROCIN 2% OINT 1 APPLIC/GM SYR NASAL ×2 (09:05→20:06)
[2018-04-12] MEDS: traZODone HCL 100 MG TAB G-TUBE (20:06)
[2018-04-12] MEDS: MIRTAZAPINE 15 MG TAB G-TUBE (20:06)
[2018-04-12] MEDS: ACETAMINOPHEN 325 MG TAB PO (21:30)
[2018-04-13] MEDS: oxyCODONE HCL ORAL CONC 5 MG/0.25 ML SYRINGE PO ×3 (01:19→16:54)
[2018-04-13] MEDS: CHLORHEXIDINE GLUCONATE 2 % 1 PACK (2 CLOTHS) TOP (03:52)
[2018-04-13] MEDS: CHLORHEXIDINE GLUCONATE 2 % 1 PACK (2 CLOTHS)(taper/protocol) TOPICAL (03:52)
[2018-04-13] MEDS: HEPARIN SODIUM - SQ 10,000 UNITS/ML VIAL SQ ×2 (04:23→11:37)
[2018-04-13] MEDS: CLINDAMYCIN 900 MG/NS PREMIX 50 ML IV ×2 (04:23→11:37)
[2018-04-13] MEDS: DOCUSATE SODIUM 50 MG/SENNA 8.6 MG TAB PO (09:05)
[2018-04-13] MEDS: levETIRAcetam 500 MG TAB G-TUBE (09:05)
[2018-04-13] MEDS: predniSONE 20 MG TAB PO (09:05)
[2018-04-13] MEDS: FAMOTIDINE 20 MG TAB PO (09:06)
[2018-04-13] MEDS: MUPIROCIN 2% OINT 1 APPLIC/GM SYR NASAL (09:06)
[2018-04-13] MEDS: SODIUM CHLOR 0.9% 1000 ML INJ 1,000 ML IV (09:07)
[2018-04-14] MEDS ORDERED: REMOVE OLD DURAGESIC (FENTANYL) PATCH T-DERMAL (11:45)
== END 2018-04-13 18:56 | DRG 206 ==
LOC: NEPC 08:09 → NEDA 08:57 → N05B 04-13 06:01 → N03A 09:19
DX: J98.8 Other specified respiratory disorders (principal); C79.89 Secondary malignant neoplasm of other specified sites; D69.6 Thrombocytopenia, unspecified; C11.9 Malignant neoplasm of nasopharynx, unspecified; K76.9 Liver disease, unspecified; K21.9 Gastro-esophageal reflux disease without esophagitis; G47.00 Insomnia, unspecified; R06.03 Acute respiratory distress; F32.9 Major depressive disorder, single episode, unspecified; Z22.322 Carrier or suspected carrier of Methicillin resistant Staphylococcus aureus; Z86.73 Personal history of transient ischemic attack (TIA), and cerebral infarction without residual deficits; Z91.010 Allergy to peanuts; Z91.013 Allergy to seafood; Z91.19 Patient's noncompliance with other medical treatment and regimen; Z92.3 Personal history of irradiation; Z93.1 Gastrostomy status
CPT/HCPCS: 70491; 71045; 80053; 83605; 85025; 87040; 87641; 92610-GN; 96125-GN; 99291